=== PATIENT | male | born 1970 | race Caucasian/White ===

== ENCOUNTER → 2017-08-29 | Outpatient (CLI) | payer BC ==
[~2017-08-29] MED LIST: ASPI-232 PO; ESCI10TA17 PO; ESOM20CA PO; LISI-725 PO; revlimid PO
--- NOTE | 2017-08-29 17:47 | DIAGNOSTIC IMAGING REPORT ---
SKELETAL SURVEY COMPLETE CLINICAL HISTORY: 47 years-old Male presenting with MULTIPLE MYELOMA, SEND TO [facility]. TECHNIQUE: Frontal and lateral views of the skull, frontal and lateral views of the cervical spine, frontal and lateral views of the thoracic spine, frontal and lateral views of the lumbar spine, frontal view of the bilateral humeri, frontal view the pelvis, frontal views of the hips/femurs, and AP view of the chest were obtained as part of a skeletal survey. COMPARISON: 08/24/2016. FINDINGS: Frontal and lateral views of the skull do not demonstrate new lytic foci. Paranasal sinuses grossly clear. Previously noted lytic lesion in the right humeral diaphysis is again apparent. No abnormality of the left proximal humerus. Frontal and lateral views of the cervical spine demonstrate normal cervical lordosis and no destructive osseous lesion. Frontal and lateral views of the thoracolumbar spine similarly demonstrate normal thoracic kyphosis and lumbar lordosis. Vertebral bodies preserved. Frontal view of the pelvis again demonstrates a lytic focus in the left ischium along the inferior left pubic ramus. This is unchanged from prior exam. Bilateral frontal views of the femurs do not demonstrate any destructive osseous lesion. AP view of the chest demonstrates normal cardiac mediastinal silhouette. Lungs and pleural spaces clear. Previously noted lytic lesion in the left eighth rib is not apparent. No new destructive osseous lesion. IMPRESSION: Stable examination. No new lytic lesion is radiographically apparent. Notably, noncontrast MR is a more sensitive modality to detect osseous involvement. Electronically signed by: Deven Zurita M.D. 08/29/2017 5:46 PM Dictated Date/Time: 08/29/2017 5:39 PM
== END | disposition home or self-care (01) ==
LOC: C.RAD 15:06
PROVIDERS: ATTEND Nurse Practitioner Family
DX: C90.00 Multiple myeloma not having achieved remission (principal)

== ENCOUNTER → 2017-08-29 | Outpatient (CLI) | payer BC | END | disposition home or self-care (01) | LOC: C.CPL 15:10 | PROVIDERS: ATTEND Surgery | DX: Z01.810 Encounter for preprocedural cardiovascular examination (principal); Z01.818 Encounter for other preprocedural examination; K62.5 Hemorrhage of anus and rectum ==

== ENCOUNTER 2017-09-13 06:57 | Inpatient (IN) | payer BC ==
[2017-09-13] VITALS (8 sets, daily range): BP systolic 104–135; BP diastolic 50–87; PULSE 58–77; TEMP 36.3–37.2; O2SAT 96–97; BMI 31.7
[~2017-09-13] VITALS: Ht 175.3 cm; Wt 98.9 kg
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
[2017-09-13] MEDS ORDERED: LISI40TA3 PO (08:14)
[2017-09-13] MEDS ORDERED: PANT40TA2 PO (08:14)
[2017-09-13] MEDS ORDERED: DXM/4 PO (08:14)
[2017-09-13] MEDS ORDERED: POMA4CAP PO (08:14)
[2017-09-13 08:39] LABS: HEMATOCRIT 41.9 % (42-52); MEAN CELL VOLUME 99.5 fL (80-100); MEAN CORPUSCULAR HEMOGLOBIN 35.6 pg (25-34); MEAN CORPUSCULAR HGB CONC 35.8 g/dl (32-36); MEAN PLATELET VOLUME 9.9 fL (7.4-10.4); NUCLEATED RED BLOOD CELL ABS 0.03 K/uL (0-0); PLATELET COUNT 140 K/uL (130-400); RED CELL DISTRIBUTION WIDTH CV 14.7 % (11.5-14.5); WHITE BLOOD COUNT 5.12 K/uL (4.8-10.8)
[2017-09-13 08:47] LABS: ALBUMIN 3.3 gm/dl (3.4-5.0); ALT/SGPT 57 U/L (12-78); BLOOD UREA NITROGEN 21 mg/dl (7-18); CALCIUM 8.6 mg/dl (8.5-10.1); CARBON DIOXIDE 23 mmol/L (21-32); CREATININE 1.46 mg/dl (0.60-1.40); GLUCOSE 287 mg/dl (70-99); POTASSIUM 4.1 mmol/L (3.5-5.1); SODIUM 138 mmol/L (136-145)
--- NOTE | 2017-09-13 08:56 | DIAGNOSTIC IMAGING REPORT ---
CHEST ONE VIEW PORTABLE CLINICAL HISTORY: Altered mental status. Weakness. Multiple myeloma. COMPARISON STUDY: Chest radiograph August 24, 2016. FINDINGS: Lung volumes are normal. There is no pneumothorax. There may be a trace left pleural effusion. No evidence of pulmonary edema. Cardiomediastinal silhouette is stable. Multiple rib lesions are better depicted on prior chest CT. IMPRESSION: 1. Possible trace left pleural effusion. 2. Otherwise, unchanged appearance of the chest. Electronically signed by: Jamal River M.D. 09/13/2017 8:55 AM Dictated Date/Time: 09/13/2017 8:50 AM
[2017-09-13 09:01] LABS: ALKALINE PHOSPHATASE 75 U/L (45-117); AST/SGOT 20 U/L (15-37); CKMB 2.6 ng/ml (0.5-3.6); TOTAL PROTEIN 6.3 gm/dl (6.4-8.2)
[2017-09-13 09:06] LABS: BASO % 0.6 %; BASO ABS # 0.03 K/uL (0-0.2); EOS % 5.3 %; EOS ABS # 0.27 K/uL (0-0.5); IG# 0.17 K/uL (0.00-0.02); LYMPH % 12.1 %; LYMPH ABS # 0.62 K/uL (1.2-3.4); MONO % 14.6 %; MONO ABS # 0.75 K/uL (0.11-0.59); NEUT % 64.1 %; NEUT ABS # 3.28 K/uL (1.4-6.5)
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
[2017-09-13] MEDS ORDERED: ONDANSETRON INJ 2 MG/ML 2 ML VIAL IV PRN (10:30)
[2017-09-13] MEDS ORDERED: MAGNESIUM HYDROXIDE SUSP 30 ML UDC PO PRN (10:30)
[2017-09-13] MEDS ORDERED: PANTOprazole SOD 40 MG TAB PO PRN (10:30)
[2017-09-13] MEDS ORDERED: ALUMINUM/MAGNESIUM/SIMETH (MAALOX MAX) 30 ML UDC PO PRN (10:30)
[2017-09-13] MEDS ORDERED: ACETAMINOPHEN 325 MG TAB PO PRN (10:30)
[2017-09-13] MEDS ORDERED: POLYETHYLENE (MIRALAX) 17 GM PACK PO PRN (10:30)
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
[2017-09-13] MEDS ORDERED: IV FLUIDS COMPLETED PRN (11:15)
[2017-09-13 11:41] LABS: HEMOGLOBIN A1C 6.7 % (4.5-5.6)
--- NOTE | 2017-09-13 11:45 | NUR ---
Observational Note: Patient alert and oriented X 4, Denies Chest Pain/Discomfort/Syncope thus far, Vss. See souvenir assembler Assessment By BOBBY Johnson ADT for full assessment. monitoring and evaluation advisor applied on, Normal Sinus Rhythm, Heart rate Mid 60's thus far. Will continue to monitor and update MD as needed. Call garcia within reach.
--- NOTE | 2017-09-13 11:47 | DIAGNOSTIC IMAGING REPORT ---
ULTRASOUND OF THE CAROTID ARTERIES CLINICAL HISTORY: syncope COMPARISON STUDY: None. TECHNIQUE: Real-time, grayscale, and color Doppler sonography of the carotid arteries was performed. Imaging reviewed in the transverse and longitudinal planes. NASCET criteria was utilized for stenosis calcification. FINDINGS: There is no significant atherosclerotic plaque present . The peak systolic velocity within the right internal carotid artery is 91 cm/sec. The systolic velocity ratio of right internal to common carotid artery is 0.6. The peak systolic velocity within the left internal carotid artery is 85 cm/sec. The systolic velocity ratio left internal to common carotid artery is 0.6. Antegrade flow is seen in the vertebral arteries. The external carotid arteries are patent. Blood pressure in the right arm measured 147 mm/Hg. Blood pressure in the left arm measured 160 mm/Hg. IMPRESSION: No evidence of hemodynamically significant carotid stenosis. Electronically signed by: Tomi Parikh M.D. 09/13/2017 11:46 AM Dictated Date/Time: 09/13/2017 11:43 AM
[2017-09-13 12:57] LABS: INR 0.9 (0.9-1.1); PTT PATIENT 22.3 SECONDS (21.0-31.0)
--- NOTE | 2017-09-13 14:00 | NUR ---
Observational Note: Patient transferred to [facility] w/ transportation staff member. Denies Chest pain/discomfort/vertigo thus far. telemetry monitor taken off. Will continue to monitor and update Md as needed.
--- NOTE | 2017-09-13 14:40 | NUR ---
Observational Note: Patient returned from [facility] w/ transportation. Denies Chest pain/discomfort thus far. junior assistant manager applied on, NSR, Heart rate Upper 60's noted. Call garcia and within reach. Will continue to monitor and update MD as needed.
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
[2017-09-13] MEDS: ENOXAPARIN 40 MG/0.4 ML SYR SC SCH (15:58)
--- NOTE | 2017-09-13 16:00 | NUR ---
A/OBS: A+O X 4. VSS. Family at bedside. SR on monitor, denies chest pain or SOB. SL in R AC, WNL. Lung sounds clear on RA, CPAP HS. Supervision OOB. Will continue to monitor.
--- NOTE | 2017-09-13 17:11 | ECHOCARDIOGRAM REPORT ---
*NOTICE TO RECEIVING [employer] This information is strictly Confidential and protected under [place] law. [place] law prohibits you from making any further disclosure of this information unless further disclosure is expressly permitted by the written consent of the person to whom it pertains or is authorized by law. A general authorization for the release of medical or other information is not sufficient for this purpose. Hospital accepts no responsibility if the information is made available to any other person, INCLUDING THE PATIENT. Interpretation Summary * Name: ANNIE WALTON Study Date: 09/13/2017 02:05 PM BP: 135/74 mmHg * Patient Location: [facility]\S\N275\S\1 HR: 78 * : 1970 (M/d/yyyy) Gender: Male Height: 69 in * Age: 47 yrs Ethnicity: [place] Weight: 214 lb * Ordering Physician: Alcira Lopez * Referring Physician: Self, Referred * Performed By: Lea Funes, [facility] * * Reason For Study: SYNCOPE * BSA: 2.1 m2 * The study was technically adequate. * -- Conclusions -- * There is severe concentric left ventricular hypertrophy. * The left ventricular wall motion is normal. * The left ventricle is hyperdynamic. * Ejection Fraction = >70 %. * Diastolic dysfunction, Grade II (pseudonormalization pattern). * There are no prior studies at [facility] for comparison. Procedure Details * A complete two-dimensional transthoracic echocardiogram was performed (2D, M-mode, Doppler and color flow Doppler). Left Ventricle * The left ventricle is normal in size. * There is severe concentric left ventricular hypertrophy. * The left ventricle is hyperdynamic. * Ejection Fraction = >70 %. * The left ventricular wall motion is normal. Right Ventricle * The right ventricle is normal size. * The right ventricular systolic function is normal as assessed by tricuspid annular plane systolic excursion (TAPSE) (normal >1.5 cm). Atria * The left atrial size is normal. * Right atrial size is normal. * There is no evidence of atrial septal defect, but resolution does not allow assessment for a patent foramen ovale. Mitral Valve * The mitral valve is normal. * There is no mitral valve stenosis. * Significant mitral regurgitation is absent. Tricuspid Valve * The tricuspid valve is normal. * There is no tricuspid stenosis. * Significant tricuspid regurgitation is absent. Aortic Valve * The aortic valve is trileaflet. * Aortic stenosis is absent. * There is no significant aortic regurgitation. Pulmonic Valve * The pulmonary valve is not well seen, but the Doppler examination is normal without significant regurgitation or stenosis. Great Vessels * The aortic root and proximal ascending aorta are normal sized. Pericardium/Pleural * There is no pericardial effusion. Great Vessels * Normal inferior vena cava diameter and respiratory variation suggests normal central venous pressure. * Normal inferior vena cava size and collapsability with sniff indicates a normal right atrial pressure of 3 mmHg Left Ventricular Diastolic Function * Diastolic dysfunction, Grade II (pseudonormalization pattern). MMode 2D Measurements and Calculations IVSd 1.9 cm IVSs 2.5 cm LVIDd 4.1 cm LVIDs 2.4 cm LVPWd 1.7 cm LVPWs 2.2 cm IVS/LVPW 1.1 FS 41.7 % EDV(Teich) 75.5 ml ESV(Teich) 20.3 ml EF(Teich) 73.1 % EDV(cubed) 70.4 ml ESV(cubed) 13.9 ml EF(cubed) 80.2 % % IVS thick 35.0 % % LVPW thick 30.9 % LV mass(C)d 313.8 grams LV mass(C)dI 147.6 grams/m\S\2 LV mass(C)s 285.2 grams LV mass(C)sI 134.1 grams/m\S\2 SV(Teich) 55.2 ml SI(Teich) 26.0 ml/m\S\2 SV(cubed) 56.5 ml SI(cubed) 26.6 ml/m\S\2 Ao root diam 2.7 cm Ao root area 5.8 cm\S\2 ACS 1.8 cm LA dimension 4.8 cm LA/Ao 1.8 LVOT diam 2.0 cm LVOT area 3.0 cm\S\2 Doppler Measurements and Calculations MV E max giacomo 117.6 cm/sec MV A max giacomo 69.6 cm/sec MV E/A 1.7 MV P1/2t max giacomo 130.3 cm/sec MV P1/2t 33.0 msec MVA(P1/2t) 6.7 cm\S\2 MV dec slope 1157.0 cm/sec\S\2 MV dec time 0.09 sec Ao V2 max 205.2 cm/sec Ao max PG 16.8 mmHg Ao max PG (full) 9.6 mmHg ANABELLA(V,A) 2.0 cm\S\2 ANABELLA(V,D) 2.0 cm\S\2 LV V1 max PG 7.2 mmHg LV V1 max 134.3 cm/sec MR max giacomo 429.9 cm/sec MR max PG 73.9 mmHg PA V2 max 111.7 cm/sec PA max PG 5.0 mmHg
--- NOTE | 2017-09-13 17:17 | NUR ---
A: Pt has been having episodes of ST and A-fib. Pt's recent troponin level increased from prior. Pt asymptomatic. made aware, no new orders at this time. Addendum: 09/13/17 at 1721 by Shirley Benitez RN A: Order for PO metoprolol added to EMAR.
[2017-09-13] MEDS ORDERED: METOPROLOL TARTRATE 25 MG TAB PO ONE (17:45)
--- NOTE | 2017-09-13 20:00 | NUR ---
A/OBS: A+O X 4. VSS. Has been staying NSR on monitor w/stable HR, denies chest pain or SOB. SL in R AC, WNL. Pt has own CPAP machine and will apply when ready. Supervision OOB. NPO after midnight r/t fasting labs in AM. Cardiology consulted. Per pt request, PRN advil for headache with evening medications. Will continue to monitor.
[2017-09-13] MEDS ORDERED: IBUPROFEN 200 MG TAB PO PRN (21:15)
[2017-09-13] MEDS: METOPROLOL TARTRATE 25 MG TAB PO SCH (21:26)
[2017-09-13 23:22] LABS: CKMB 2.4 ng/ml (0.5-3.6)
--- NOTE | 2017-09-14 | NUR ---
A: Pt is A&OX4. Supervision to IND when out of bed. Denies dizziness and pain. VSS. SR on the monitor. Lung sounds are clear. Pt has own C-pap on. SL noted. Will continue to monitor.
[2017-09-14 04:00] VITALS: BP_SYST 105; BP_SYST 124; BP_SYST 95; BP_DIAS 56; BP_DIAS 61; BP_DIAS 74; PULSE 62; PULSE 64; PULSE 66; TEMP 36.7; O2SAT 97
--- NOTE | 2017-09-14 04:00 | NUR ---
A: Assessment unchanged from previous note. VSS. SR on the monitor. NPO since for test in the AM. Will continue to monitor. Addendum: 09/14/17 at 0522 by Rufina Redman RN Pt has been SR to SB.
[2017-09-14 07:05] LABS: HEMATOCRIT 40.8 % (42-52); HEMOGLOBIN 14.4 g/dL (14.0-18.0); MEAN CORPUSCULAR HEMOGLOBIN 35.3 pg (25-34); MEAN CORPUSCULAR HGB CONC 35.3 g/dl (32-36); MEAN PLATELET VOLUME 9.3 fL (7.4-10.4); NUCLEATED RED BLOOD CELL ABS 0.02 K/uL (0-0); PLATELET COUNT 119 K/uL (130-400); RED CELL DISTRIBUTION WIDTH CV 14.8 % (11.5-14.5); RED CELL DISTRIBUTION WIDTH SD 52.6 fL (36.4-46.3); WHITE BLOOD COUNT 4.83 K/uL (4.8-10.8)
[2017-09-14 07:36] LABS: CALCIUM 8.6 mg/dl (8.5-10.1); CREATININE 1.23 mg/dl (0.60-1.40); POTASSIUM 4.3 mmol/L (3.5-5.1)
[2017-09-14 07:42] VITALS: BP 120/64; PULSE 58; TEMP 36.6; O2SAT 96
--- NOTE | 2017-09-14 08:00 | NUR ---
A- Alert and oriented, OOB independently. SB on monitor. Denies pain, shortness of breath, dizziness. See PCS for full assessment
[2017-09-14] MEDS: ESCITALOPRAM OXALATE 10 MG TAB PO SCH (08:35)
[2017-09-14] MEDS: METOPROLOL TARTRATE 25 MG TAB PO SCH ×2 (08:36→20:34)
[2017-09-14] MEDS: ASPIRIN 81 MG ECTAB PO SCH (08:36)
[2017-09-14] MEDS: LISINOPRIL 40 MG TAB PO SCH (08:36)
--- NOTE | 2017-09-14 10:06 | Cardiology Consultation ---
Cardiology Consultation Date of Consultation: Sep 14, 2017. Requesting Physician: Dr. Chambers Attending Physician: Dr. oJhnson Reason for Consultation: Severe LVH, new onset atrial fibrillation Pt evaluation today including: conversation w/ patient, conversation w/ family , physical exam, chart review, lab review, review of studies, review of inpatient medication list, conversation w/ attending History of Present Illness Mr. Ochoa is a 47-year-old male with a past medical history significant for multiple myeloma (diagnosed in 2013), hypertension, GERD, DEBBY (on CPAP), chronic kidney disease, and anxiety who presented to the ED yesterday following a syncopal event. The patient reports that he was in his car pulling into the parking lot at work yesterday morning when he took a sip of his tea. He choked while drinking the tea and coughed forcefully twice before suddenly losing consciousness. He denies any prodromal symptoms leading up to the loss of consciousness including palpitations, lightheadedness, dizziness, nausea, diaphoresis, etc. When he woke up, he found that his car had scraped the side of a sign in the parking lot before stopping. He denies any history of syncope before or since that occasion. He reports that he has been sick with a "chest cold" over the last two months. He reports coughing, wheezing, and increased shortness of breath on exertion with the cold. He also notes tightness of his chest in association with the shortness of breath. He had chills last week as well. He reports that he was seen at an urgent care center last week and was diagnosed with pneumonia at that time. He has been treated with a Z vicky with improvement in his symptoms. He reports that about 1-2 months ago, he was switched to Pomalyst and dexamethasone for his multiple myeloma. He reports that since that time, he has noted brief episodes of tachy-palpitations lasting no more than 10 seconds in duration. He attributed the palpitations to the steroids. He has not experienced any palpitations since his hospital admission. He denies abnormal bleeding such as melena, hematochezia, or hematuria. He denies cerebrovascular symptoms. He denies orthopnea or edema. He denies GI or symptoms. Review of Systems: As noted in HPI. All other 10 point ROS reviewed and otherwise negative. Past Medical/Surgical History Multiple myeloma Gastroesophageal reflux disease Obstructive sleep apnea Hypertension Past surgical history Vasectomy Family History Patient reports no known family medical history. The patient is adopted, therefore, he does not know his family history. Social History Smoking Status: Never Smoker History of Alcohol Use: No He is . He has one children with his current and has 2 children from a previous marriage. He works at [employer]. He denies smoking, alcohol, or illicit drug use. Review of Systems Per HPI. Patient has been experiencing symptoms of upper respiratory infection and coughing for a few weeks. He also does note some dyspnea while at ascending stairs associated with some chest pressure. All Other Systems: Reviewed and Negative Allergies Coded Allergies: No Known Allergies (Unverified , 09/13/17) Medications Current Inpatient Medications Medications (Trade) Dose Ordered Sig/Garcia Route Start Time Stop Time Status Last Admin Dose Admin Enoxaparin Sodium (Lovenox Inj) 40 mg DAILY@1600 SC 09/13/17 16:00 10/13/17 15:59 09/13/17 15:58 40 MG Acetaminophen (Tylenol Tab) 650 mg Q4H PRN PO 09/13/17 10:30 10/13/17 10:29 Al Hydrox/Mg Hydrox/Simethicone (Maalox Max Susp) 15 ml Q4H PRN PO 09/13/17 10:30 10/13/17 10:29 Magnesium Hydroxide (Milk Of Magnesia Susp) 30 ml Q12H PRN PO 09/13/17 10:30 10/13/17 10:29 Ondansetron HCl (Zofran Inj) 4 mg Q6H PRN IV 09/13/17 10:30 10/13/17 10:29 Polyethylene (Miralax Powder Packet) 17 gm DAILY PRN PO 09/13/17 10:30 10/13/17 10:29 Aspirin (Ecotrin Tab) 81 mg DAILY PO 09/14/17 09:00 10/14/17 08:59 09/14/17 08:36 81 MG Escitalopram Oxalate (Lexapro Tab) 10 mg DAILY PO 09/14/17 09:00 10/14/17 08:59 09/14/17 08:35 10 MG Lisinopril (Zestril Tab) 40 mg DAILY PO 09/14/17 09:00 10/14/17 08:59 1/3/18 08:36 40 MG Pantoprazole Sodium (Protonix Tab) 40 mg DAILY PRN PO 09/13/17 10:30 10/13/17 10:29 Miscellaneous Information (Order Awaiting Action) 1 ea QS N/A 09/13/17 16:00 10/13/17 15:59 Miscellaneous (Iv Fluids Completed) 1 ea PRN PRN N/A 09/13/17 11:15 09/13/18 11:14 Metoprolol Tartrate (Lopressor Tab) 12.5 mg BID PO 09/13/17 21:00 10/13/17 20:59 09/13/17 21:26 12.5 MG Prednisone (PredniSONE TAB) 10 mg QPM PO 09/13/17 21:00 10/13/17 20:59 09/13/17 21:26 10 MG Ibuprofen (Advil Tab) 400 mg QID PRN PO 09/13/17 21:15 10/13/17 21:14 09/13/17 21:26 400 MG Physical Exam Vital Signs Past 12 Hours Date Time Temp Pulse Resp B/P (MAP) Pulse Ox O2 Delivery O2 Flow Rate FiO2 09/14/17 08:00 Room Air 09/14/17 07:42 36.6 58 18 120/64 (82) 96 Room Air 09/14/17 04:00 64 105/61 (76) 09/14/17 04:00 36.7 62 18 95/56 (69) 97 Room Air 09/14/17 04:00 66 18 124/74 (91) 09/14/17 04:00 Room Air 09/14/17 00:00 CPAP 09/13/17 23:58 36.3 58 18 104/55 (71) 97 CPAP Constitutional: Alert, oriented, in no acute distress HEENT: Head is atraumatic and normocephalic. EOMs intact. Sclera anicteric. Face is symmetric. No perioral cyanosis. Mucous membranes moist. Neck: Supple, no JVD, no carotid bruits Pulmonary: Normal respiratory effort, clear to auscultation bilaterally Cardiac: Regular rate and rhythm, normal S1 and S2, no gallops, no rubs, no murmurs Extremities: No clubbing, cyanosis, or edema. Pulses 2+ and symmetric Abdomen: Normal bowel sounds, soft, non-tender, no abdominal mass palpated Skin: Normal skin color, turgor, and pigmentation, no rash, no skin lesions Neurological: Oriented to person, place, and time Data Laboratory Results: Last 24 Hours Test 09/13/17 12:27 09/13/17 15:18 09/13/17 22:43 09/14/17 06:29 Prothrombin Time 9.7 SECONDS Prothromb Time International Ratio 0.9 Activated Partial Thromboplast Time 22.3 SECONDS Partial Thromboplastin Ratio 0.9 Total Creatine Kinase 27 U/L 32 U/L Creatine Kinase MB 2.0 ng/ml 2.4 ng/ml Creatine Kinase MB Ratio 7.4 7.5 Troponin I 0.127 ng/ml 0.188 ng/ml White Blood Count 4.83 K/uL Red Blood Count 4.08 M/uL Hemoglobin 14.4 g/dL Hematocrit 40.8 % Mean Corpuscular Volume 100.0 fL Mean Corpuscular Hemoglobin 35.3 pg Mean Corpuscular Hemoglobin Concent 35.3 g/dl RDW Standard Deviation 52.6 fL RDW Coefficient of Variation 14.8 % Platelet Count 119 K/uL Mean Platelet Volume 9.3 fL Nucleated RBC Absolute Count (auto) 0.02 K/uL Nucleated Red Blood Cells % 0.5 % Sodium Level 138 mmol/L Potassium Level 4.3 mmol/L Chloride Level 106 mmol/L Carbon Dioxide Level 27 mmol/L Anion Gap 5.0 mmol/L Blood Urea Nitrogen 20 mg/dl Creatinine 1.23 mg/dl Est Creatinine Clear Calc Drug Dose 88.3 ml/min Estimated GFR () 80.5 Estimated GFR (Non- 69.5 BUN/Creatinine Ratio 16.3 Random Glucose 146 mg/dl Calcium Level 8.6 mg/dl Triglycerides Level 199 mg/dl Cholesterol Level 160 mg/dl HDL Cholesterol 49 mg/dl LDL Cholesterol, Calculated 71 mg/dl VLDL Cholesterol, Calculated 40 mg/dl Cholesterol/HDL Ratio 3.3 CXR: 1. Possible trace left pleural effusion. 2. Otherwise, unchanged appearance of the chest. Carotid duplex: No evidence of hemodynamically significant carotid stenosis. EKG: Sinus bradycardia at 52 bpm. T wave inversion of lateral and inferior leads. Echo: 1. There is severe concentric left ventricular hypertrophy. 2. The left ventricular wall motion is normal. 3. The left ventricle is hyperdynamic. 4. Ejection Fraction = >70 %. 5. Diastolic dysfunction, Grade II (pseudonormalization pattern). Telemetry reviewed: Sinus rhythm with rates in the 50-60s typically, but he did drop down into the 30s overnight. He had an episode of atrial fibrillation/ flutter starting at 16:44 yesterday that spontaneously converted to sinus at 17: 27. Assessment & Plan The patient was discussed with Dr. Johnson who will also be in to see the patient today. Please refer to his outlined plan below. 1. Syncope: I believe the patient's syncope is result of a benign process. He was coughing and experienced a very brief loss of consciousness that lasted only a few seconds. He had no prodrome leading up to the event. There is no sense of palpitation. He did not have symptoms of chest discomfort or even dizziness immediately prior. Afterwards he felt fine was transported to the hospital by his . He does report similar episodes while coughing vigorously during his recent upper respiratory illness. He has not experienced syncope in the past. 2. Elevated cardiac troponin: The trajectory of his troponins is flat. He did not describe symptoms recently consistent with angina or coronary insufficiency. Do not believe he suffered a recent acute coronary syndrome. It is very possible that he has some mildly elevated troponins in a chronic fashion due to mild renal dysfunction and cardiomyopathy. He also could have had some mild watershed injury due to rapid atrial fibrillation in the setting of his severe concentric hypertrophy. His EKG is not normal. He has T-wave inversions diffusely which may be related to his cardiomyopathy. However, I think at this point would be reasonable to perform a perfusion study. He does have some exertional symptoms did describe dyspnea with chest pressure at ascending stairs on occasion. He has been maintained on a daily aspirin. 3. Left ventricular hypertrophy: Patient has significant left ventricular hypertrophy. This may be related to longstanding hypertension. He also has multiple myeloma could have increased wall thickness as a result. He has preserved LV systolic function with stage II diastolic dysfunction. Although he has LVH, this is not H CM. I do not believe his syncope was related to his cardiomyopathy. 4. Atrial fibrillation: Patient did have an episode of atrial fibrillation over the course of the evening that was extended in duration. He did not have symptoms. Unclear whether he has atrial fibrillation at other times but most likely he does. His main risk factors likely his obstructive sleep apnea, and longstanding hypertension. His cardiomyopathy and diastolic dysfunction may also play a role. Unfortunately, he did have higher ventricular rates during this episode. He would benefit from some form of rate control preferably with beta blockade. However, his resting heart rate is quite low. This may limit our ability to adequately control his ventricular response during atrial fibrillation. He may in fact need a pacemaker for adequate control if he has more frequent and extended episodes of atrial fibrillation. At this point seems reasonable to monitor him again overnight. We can make some decisions regarding treatment after he has been administered some metoprolol. We could even perform outpatient monitoring to better gauge the frequency of his atrial fibrillation in the associated heart rates. His risk for thromboembolic disease is also unknown. Standard risk factor assessment would place him in a chads Vasc category of 1. This is relatively low risk and generally does not require systemic anticoagulation. However, he does take a derivative of thalidomide which seems to have some increased risk of thromboembolic events. In that setting and may be more appropriate to consider systemic anticoagulation.
[2017-09-14 10:47] VITALS: Ht 175.3 cm; Wt 98.9 kg
--- NOTE | 2017-09-14 10:54 | NUR ---
Pt screened for oncology hx. Please refer to linked assessment Addendum: 09/14/17 at [address] Amended: Links added.
--- NOTE | 2017-09-14 11:00 | NUR ---
A- Dr Chambers aware that patient is currently in afib rate 100-140's
[2017-09-14 11:26] VITALS: BP_SYST 114; BP_SYST 115; BP_SYST 118; BP_DIAS 72; BP_DIAS 74; BP_DIAS 76; PULSE 114; TEMP 36.6; O2SAT 95
--- NOTE | 2017-09-14 11:33 | NUR ---
A- Dr Chambers aware that patient has converted back to SB/SR
--- NOTE | 2017-09-14 13:33 | Clinical Documentation Query ---
CLINICAL DOCUMENTATION QUERY Dr. ALEX, In your clinical opinion is this patient being managed for: ( x ) Tussive syncope ( ) Not Agree ( ) Other explanation of clinical findings (Please Explain) ( ) Unable to determine (Please Define) ( ) Need to Discuss The medical record reflects the following clinical findings, treatment, and risk factors. Clinical Indicators:47 yo male presenting with a syncopal episode following an episode of choking on tea and coughed. Per cardiology consult, pt does report similar episodes while coughing vigorously during his recent upper respiratory illness. Treatment:cardiology consult, tele monitoring, rule out for cardiac cause, ECHO, serial trops Risk Factors: choking episode, obesity Tussive syncope, or cough syncope, is most often found in middle-aged, moderately obese men, who smoke or have stopped smoking. ... Tussive syncope is considered as one of the situational syncopes, which take place after certain processes: e.g. defecation, micturition, swallowing and coughing. Please clarify and document your clinical opinion in the progress notes and discharge summary. Terms such as "probable", "suspected", "likely", "questionable", "possible", or "still to be ruled out" are acceptable. IF IN AGREEMENT, YOU MUST DOCUMENT ABOVE DIAGNOSTIC STATEMENT IN DAILY PROGRESS NOTES AND DISCHARGE SUMMARY. This document is not part of the patient's record. Thank You, Millie Correia RN [phone]
--- NOTE | 2017-09-14 14:35 | Hospitalist Progress Note ---
Hospitalist Progress Note Date of Service Sep 14, 2017. (Alcira Lopez ., ZENA-C) Subjective Pt evaluation today including: conversation w/ patient, physical exam, chart review, lab review, review of inpatient medication list Pain: None PO Intake: Tolerating PO diet Voiding: no voiding problems Patient reports feeling well. He does note some intermittent palpitations and reports that he could "feel it" when he [facility] with [facility] this morning. He otherwise denies any complaints or associated symptoms. The patient denies fevers, chills, sweats, chest pain, claudication, cough, wheezing, shortness of breath, nausea, vomiting, abdominal pain, dysuria, hematuria, urinary retention , paralysis, weakness, numbness and tingling. Additional Comments: See HPI for pertinent positives and negatives. All other systems reviewed and negative. (Alcira Lopez ., PA-C) Objective Vital Signs Date Time Temp Pulse Resp B/P (MAP) Pulse Ox O2 Delivery O2 Flow Rate FiO2 09/14/17 11:47 Room Air 09/14/17 11:26 36.6 114 18 118/74 (89) 95 Room Air 115/72 (86) 114/76 (89) 09/14/17 08:00 Room Air 09/14/17 07:42 36.6 58 18 120/64 (82) 96 Room Air 09/14/17 04:00 64 105/61 (76) 09/14/17 04:00 36.7 62 18 95/56 (69) 97 Room Air 09/14/17 04:00 66 18 124/74 (91) 09/14/17 04:00 Room Air 09/14/17 00:00 CPAP 09/13/17 23:58 36.3 58 18 104/55 (71) 97 CPAP 09/13/17 21:06 36.8 66 16 134/67 (89) 96 Room Air 09/13/17 20:00 96 Room Air 09/13/17 17:03 133/87 (102) 09/13/17 16:00 96 Room Air 09/13/17 15:00 36.9 68 18 135/74 (94) 96 Room Air (Alcira Lopez ., ZENA-C) Physical Exam Notes: General appearance: +Obese. Well-developed, well-nourished, no apparent distress Head: Normocephalic, atraumatic Eyes: Normal inspection, PERRL, EOMI, no nystagmus ENT: Normal ENT inspection, hearing grossly normal, pharynx normal Neck: Supple, no JVD, trachea midline Respiratory/Chest: Lungs clear to auscultation, normal breath sounds, no respiratory distress Cardiovascular: Regular rate & rhythm, no gallop, no murmur Abdomen/GI: Normal bowel sounds, non-tender, soft Extremities/Musculoskeletal: Normal inspection, no calf tenderness, no pedal edema Neurological/Psych: Alert, normal mood/affect, oriented x 3 Skin: Normal color, warm/dry, no rash (Alcira Lopez ., PA-C) Laboratory Results Last 24 Hours Test 09/13/17 15:18 09/13/17 22:43 09/14/17 06:29 09/14/17 10:58 Total Creatine Kinase 27 U/L 32 U/L Creatine Kinase MB 2.0 ng/ml 2.4 ng/ml Creatine Kinase MB Ratio 7.4 7.5 Troponin I 0.127 ng/ml 0.188 ng/ml 0.082 ng/ml White Blood Count 4.83 K/uL Red Blood Count 4.08 M/uL Hemoglobin 14.4 g/dL Hematocrit 40.8 % Mean Corpuscular Volume 100.0 fL Mean Corpuscular Hemoglobin 35.3 pg Mean Corpuscular Hemoglobin Concent 35.3 g/dl RDW Standard Deviation 52.6 fL RDW Coefficient of Variation 14.8 % Platelet Count 119 K/uL Mean Platelet Volume 9.3 fL Nucleated RBC Absolute Count (auto) 0.02 K/uL Nucleated Red Blood Cells % 0.5 % Sodium Level 138 mmol/L Potassium Level 4.3 mmol/L Chloride Level 106 mmol/L Carbon Dioxide Level 27 mmol/L Anion Gap 5.0 mmol/L Blood Urea Nitrogen 20 mg/dl Creatinine 1.23 mg/dl Est Creatinine Clear Calc Drug Dose 88.3 ml/min Estimated GFR () 80.5 Estimated GFR (Non- 69.5 BUN/Creatinine Ratio 16.3 Random Glucose 146 mg/dl Calcium Level 8.6 mg/dl Triglycerides Level 199 mg/dl Cholesterol Level 160 mg/dl HDL Cholesterol 49 mg/dl LDL Cholesterol, Calculated 71 mg/dl VLDL Cholesterol, Calculated 40 mg/dl Cholesterol/HDL Ratio 3.3 (Alcira Lopez ., LALA) Diagnostic Results Echocardiogram: Interpretation Summary * Name: ANNIE WALTON Study Date: 09/13/2017 02:05 PM BP: 135/74 mmHg * Patient Location: [facility]\\\\[id number] HR: 78 * : 1970 (M/d/yyyy) Gender: Male Height: 69 in * Age: 47 yrs Ethnicity: [place] Weight: 214 lb * Ordering Physician: Alcira Lopez * Referring Physician: Self, Referred * Performed By: Lea Funes, [facility] * * Reason For Study: SYNCOPE * BSA: 2.1 m2 * The study was technically adequate. * -- Conclusions -- * There is severe concentric left ventricular hypertrophy. * The left ventricular wall motion is normal. * The left ventricle is hyperdynamic. * Ejection Fraction = >70 %. * Diastolic dysfunction, Grade II (pseudonormalization pattern). * There are no prior studies at [facility] for comparison. Procedure Details * A complete two-dimensional transthoracic echocardiogram was performed (2D, M- mode, Doppler and color flow Doppler). Left Ventricle * The left ventricle is normal in size. * There is severe concentric left ventricular hypertrophy. * The left ventricle is hyperdynamic. * Ejection Fraction = >70 %. * The left ventricular wall motion is normal. Right Ventricle * The right ventricle is normal size. * The right ventricular systolic function is normal as assessed by tricuspid annular plane systolic excursion (TAPSE) (normal >1.5 cm). Atria * The left atrial size is normal. * Right atrial size is normal. * There is no evidence of atrial septal defect, but resolution does not allow assessment for a patent foramen ovale. Mitral Valve * The mitral valve is normal. * There is no mitral valve stenosis. * Significant mitral regurgitation is absent. Tricuspid Valve * The tricuspid valve is normal. * There is no tricuspid stenosis. * Significant tricuspid regurgitation is absent. Aortic Valve * The aortic valve is trileaflet. * Aortic stenosis is absent. * There is no significant aortic regurgitation. Pulmonic Valve * The pulmonary valve is not well seen, but the Doppler examination is normal without significant regurgitation or stenosis. Great Vessels * The aortic root and proximal ascending aorta are normal sized. Pericardium/Pleural * There is no pericardial effusion. Great Vessels * Normal inferior vena cava diameter and respiratory variation suggests normal central venous pressure. * Normal inferior vena cava size and collapsability with sniff indicates a normal right atrial pressure of 3 mmHg Left Ventricular Diastolic Function * Diastolic dysfunction, Grade II (pseudonormalization pattern). ULTRASOUND OF THE CAROTID ARTERIES CLINICAL HISTORY: syncope COMPARISON STUDY: None. TECHNIQUE: Real-time, grayscale, and color Doppler sonography of the carotid arteries was performed. Imaging reviewed in the transverse and longitudinal planes. NASCET criteria was utilized for stenosis calcification. FINDINGS: There is no significant atherosclerotic plaque present . The peak systolic velocity within the right internal carotid artery is 91 cm/sec. The systolic velocity ratio of right internal to common carotid artery is 0.6. The peak systolic velocity within the left internal carotid artery is 85 cm/sec. The systolic velocity ratio left internal to common carotid artery is 0.6. Antegrade flow is seen in the vertebral arteries. The external carotid arteries are patent. Blood pressure in the right arm measured 147 mm/Hg. Blood pressure in the left arm measured 160 mm/Hg. IMPRESSION: No evidence of hemodynamically significant carotid stenosis. (Alcira Lopez ., PA-C) Assessment and Plan 47 y/o male with a history of HTN, HLD, multiple myeloma, anxiety, CKD stage III , DEBBY and GERD who presented to the ED on 09/13 with a syncopal episode. Pt afebrile, VSS on arrival. Orthostatics done and negative. CXR shows no acute disease. EKG shows old inferior and lateral TWI, no acute changes. BSG elevated at 287 with no history of diabetes, however pt currently on Prednisone due to recent pneumonia and on chronic Decadron. Troponin mildly elevated at 0.110. Labs otherwise grossly unremarkable. Syncope, elevated troponin--resolving -Admit to telemetry for cardiac/arrhythmia monitoring. Pt in sinus bradycardia overnight with HR 40s-50s. Pt does have intermittent episodes of a-fib w/RVR with HR in 140s. Had a 20 minute run of RVR this morning from 10:51-11:12, then back into SR -Troponin stable, peaked at 0.188 and now trending down -Echo shows severe LVH. LV hyperdynamic, EF over 70%. No wall motion abnormalities. Grade II diastolic dysfunction. No significant valvular pathology. -Carotid ultrasound negative, no hemodynamically significant stenosis. -Orthostatic BP q shift -Non-hypotensive, non-hypoxic, non-tachycardic. D-dimer negative -Lipid panel shows triglycerides at 199, total cholesterol 160, non-HDL 111 Paroxysmal a-fib -Cardiology consulted, appreciate recs: Would benefit from some form of rate control for RVR, preferably with BB, but resting heart rate is low. May need pacemaker for adequate control if a-fib occurs more frequently/longer duration. Elevated troponin unlikely ACS, could have some mild watershed injury due to rapid a-fib in the setting of his severe concentric hypertrophy. T-wave inversions diffusely on EKG, reasonable to do perfusion study. Cardiomyopathy likely secondary to multiple myeloma. -NPO after midnight for nuclear stress test tomorrow -Although chadsvasc score is low, pt has underlying malignancy, and Pomalyst can also increase clot risk. Should likely be on anticoagulation but can start this as outpatient after talking with oncologist -Lopressor 12.5 mg PO BID with hold parameters Recent pneumonia--improving -Finished Z-pack, no leukocytosis or fever -Elevated trop could be related to recent acute illness/demand ischemia -Prednisone 10 mg PO qd x 2 more doses to complete outpt taper DM II--HgbA1c 6.7 on 09/13 -Pt on chronic steroids -Hold off on maintenance medications for now -BSG improved on 09/14 from admission -Insulin sliding scale -Check BSGs q ac and qhs HTN, HLD--stable -Continue ASA, lisinopril 40 mg PO qd Multiple myeloma s/p bone marrow transplant January 2015--stable -Pt follows with Dr. Estrada locally and at [facility] oncology -Continue Pomalyst 4 mg PO qd -Pt takes Decadron 4 mg PO weekly on Saturdays Anxiety--stable -Continue Lexapro 10 mg PO qd CKD stage III--stable -Creatinine at baseline (1.3-1.5) DEBBY -CPAP GERD -Protonix prn DVT prophylaxis -Enoxaparin 40 mg SC q24h -ZANDRA tran and SCDs Code Status -Level I, FULL RESUSCITATION STATUS (Alcira Lopez, PA-C) Supervising Note Dr. Chambers I performed a history and physical examination on the patient. I reviewed above note and agree with it. I discussed plan with APC and patient. During my face to face encounter with the patient, I answered all of the patient's questions. Patient appears to have a tussive syncopal episode. will continue to monitor him while he is here and have him on tele monitor Patient also has a. fib and severe LVH likely from his multiple myeloma. Patient will get nuclear stress test tomorrow. will have patient on low dose beta teto for now. (Irineo Chambers M.D.)
--- NOTE | 2017-09-14 14:42 | NUR ---
ID- Alert and oriented, independent with adls. Tolerating diet, no caffeine today due to Lexuscan ordered for tomorrow am , patient aware. SB/SR/Afib on monitor. Discharge date uncertain at present
[2017-09-14] MEDS ORDERED: GLUCOSE 40% GEL 15 GM TUBE PO PRN (14:45)
[2017-09-14] MEDS ORDERED: GLUCOSE 10 TABS/TUBE PO PRN (14:45)
[2017-09-14] MEDS ORDERED: GLUCAGON FOR INJ 1 MG VIAL SQ PRN (14:45)
[2017-09-14] MEDS ORDERED: DEXTROSE 50% 50 ML SYR IV PRN (14:45)
[2017-09-14 15:21] VITALS: BP_SYST 123; BP_SYST 129; BP_SYST 146; BP_DIAS 74; BP_DIAS 84; BP_DIAS 87; PULSE 68; PULSE 69; PULSE 70; TEMP 37.3; O2SAT 97
[2017-09-14] MEDS: ENOXAPARIN 40 MG/0.4 ML SYR SC SCH (16:19)
[2017-09-14] MEDS: INSULIN ASPART 100 UNITS/ML 3 ML PEN SC SCH ×2 (16:21→20:53)
--- NOTE | 2017-09-14 20:10 | NUR ---
A: Patient alert & oriented x 4. VSS. No c/o pain. O2 sats stable on RA. No c/o SOB or chest pain. Denies dizziness. Monitor on. OOB independently with steady gait to BR. Will continue to monitor.
[2017-09-14 20:26] VITALS: BP 128/67; PULSE 68; TEMP 36.8; O2SAT 95
[2017-09-14 23:52] VITALS: BP 116/72; PULSE 89; TEMP 36.7; O2SAT 97
--- NOTE | 2017-09-15 00:10 | NUR ---
A: Patient sleeping. No complaints at this time. NPO for Elena this AM. Patient educated and aware. Will continue to monitor.
--- NOTE | 2017-09-15 04:10 | NUR ---
A: Patient sleeping. No complaints @ this time. Assessment unchanged. Will continue to monitor.
[2017-09-15 04:44] VITALS: BP 110/67; PULSE 51; TEMP 36.6; O2SAT 98
[2017-09-15 06:14] LABS: HEMATOCRIT 43.2 % (42-52); HEMOGLOBIN 15.1 g/dL (14.0-18.0); MEAN CELL VOLUME 101.2 fL (80-100); MEAN CORPUSCULAR HEMOGLOBIN 35.4 pg (25-34); MEAN PLATELET VOLUME 9.7 fL (7.4-10.4); PLATELET COUNT 128 K/uL (130-400); RED CELL DISTRIBUTION WIDTH SD 53.4 fL (36.4-46.3)
[2017-09-15 06:50] LABS: CALCIUM 8.5 mg/dl (8.5-10.1); CREATININE 1.21 mg/dl (0.60-1.40); POTASSIUM 4.3 mmol/L (3.5-5.1)
--- NOTE | 2017-09-15 07:30 | NUR ---
A- Alert and oriented, oob independently. Npo for Jose Duscan, patient taken via wheelchair to Nuc med at this time
[2017-09-15] MEDS ORDERED: REGADENOSON 0.4 MG/5 ML SYR ONE (07:44)
[2017-09-15 08:01] VITALS: BP_SYST 102; BP_SYST 105; BP_SYST 110; BP_DIAS 58; BP_DIAS 62; BP_DIAS 64; PULSE 53; PULSE 55; PULSE 59; TEMP 36.6; O2SAT 96
[2017-09-15] MEDS: INSULIN ASPART 100 UNITS/ML 3 ML PEN SC SCH ×2 (09:04→14:40)
[2017-09-15] MEDS: ESCITALOPRAM OXALATE 10 MG TAB PO SCH (10:52)
[2017-09-15] MEDS: ASPIRIN 81 MG ECTAB PO SCH (10:52)
[2017-09-15] MEDS: LISINOPRIL 40 MG TAB PO SCH (10:53)
[2017-09-15 10:56] VITALS: PULSE 66
[2017-09-15] MEDS: METOPROLOL TARTRATE 25 MG TAB PO SCH (10:56)
--- NOTE | 2017-09-15 11:12 | Cardiology Follow-Up ---
Subjective Date of Service: Sep 15, 2017. Pt evaluation today including: conversation w/ patient, physical exam, chart review, lab review, review of studies, review of inpatient medication list History of Present Illness This morning the patient claims to be feeling well. He was wear a sense of palpitation yesterday during periods of atrial fibrillation. He recalls a sense of these palpitations periodically since starting steroid therapy. He did not have associated chest pain or dyspnea. He has not experienced any additional episodes of dizziness or lightheadedness. He was hungry for breakfast Social History Smoking Status: Never Smoker History of Alcohol Use: No Objective Vital Signs Past 12 Hours Date Time Temp Pulse Resp B/P (MAP) Pulse Ox O2 Delivery O2 Flow Rate FiO2 09/15/17 10:56 66 09/15/17 08:01 36.6 59 18 110/64 (79) 96 Room Air 53 105/58 (74) 55 102/62 (75) 09/15/17 07:31 Room Air 09/15/17 04:44 36.6 51 20 110/67 (81) 98 Room Air 09/15/17 04:10 Room Air CPAP 09/15/17 00:10 Room Air CPAP 09/14/17 23:52 36.7 89 18 116/72 (87) 97 Room Air Last Recorded Weight-Kilograms: 98.900 Physical Exam Constitutional: Alert, oriented, in no acute distress HEENT: Head is atraumatic and normocephalic. EOMs intact. Sclera anicteric. Face is symmetric. No perioral cyanosis. Mucous membranes moist. Neck: Supple, no JVD, no carotid bruits Pulmonary: Normal respiratory effort, clear to auscultation bilaterally Cardiac: Regular rate and rhythm, normal S1 and S2, no gallops, no rubs, no murmurs Extremities: No clubbing, cyanosis, or edema. Pulses 2+ and symmetric Abdomen: Normal bowel sounds, soft, non-tender, no abdominal mass palpated Skin: Normal skin color, turgor, and pigmentation, no rash, no skin lesions Neurological: Oriented to person, place, and time Data Laboratory Results: Last 24 Hours Test 09/14/17 14:24 09/14/17 16:21 09/14/17 20:41 09/15/17 06:02 Magnesium Level 2.2 mg/dl Bedside Glucose 137 mg/dl 167 mg/dl White Blood Count 4.40 K/uL Red Blood Count 4.27 M/uL Hemoglobin 15.1 g/dL Hematocrit 43.2 % Mean Corpuscular Volume 101.2 fL Mean Corpuscular Hemoglobin 35.4 pg Mean Corpuscular Hemoglobin Concent 35.0 g/dl RDW Standard Deviation 53.4 fL RDW Coefficient of Variation 15.0 % Platelet Count 128 K/uL Mean Platelet Volume 9.7 fL Sodium Level 139 mmol/L Potassium Level 4.3 mmol/L Chloride Level 106 mmol/L Carbon Dioxide Level 29 mmol/L Anion Gap 4.0 mmol/L Blood Urea Nitrogen 20 mg/dl Creatinine 1.21 mg/dl Est Creatinine Clear Calc Drug Dose 87.5 ml/min Estimated GFR () 82.1 Estimated GFR (Non- 70.9 BUN/Creatinine Ratio 16.5 Random Glucose 132 mg/dl Calcium Level 8.5 mg/dl Imaging: Cardiac perfusion study pending Telemetry reviewed: Occasional episodes of atrial fibrillation with high ventricular rates Assessment and Plan 1. Syncope: This appears to be situational syncope. Cough syncope. 2. Elevated cardiac troponin: Troponin slowly resolving. This may have been a demand related event. He is currently undergoing a cardiac perfusion study which will provide some additional information regarding his risk stratification the need for any additional evaluation. 3. Left ventricular hypertrophy: Unclear if this related to longstanding hypertension or possibly his plasma cell dyscrasia. He has been started on a beta-teto will see if he tolerates this therapy. 4. Atrial fibrillation: He continues to have episodes of paroxysmal atrial fibrillation with higher ventricular rates. He is minimally symptomatic. Ideally we will have a rate control strategy. This is complicated by his resting bradycardia. He has been administered 2 doses of metoprolol I think we will have an opportunity to monitor him for symptoms associated with this therapy. Think it is very possible that he will progress to the point where he requires a pacemaker for tachy-jasper syndrome. An extensive discussion with him today regarding pacemakers. Additionally, I think he has at high risk of thromboembolic events due to his history of hypertension and current medical therapy for multiple myeloma. I would recommend initiation of warfarin therapy for prophylaxis. I would choose this over the alternate agents due to his mild renal dysfunction. However, Marla would be an alternative if he wished to pursue a novel oral anticoagulant.
[2017-09-15 12:00] VITALS: BP 130/76; PULSE 61; TEMP 36.8; O2SAT 97
--- NOTE | 2017-09-15 12:00 | NUR ---
A- Alert and oriented, SR on monitor. Denies pain, dizziness. See PCS for full assessment
--- NOTE | 2017-09-15 13:12 | NUR ---
lumite injector [facility]: Follow up appointments made and the info was added to the DC instructions - Dr. Jc Quan on TuesdaySep 20 at 5:[address] Estrada on TuesdaySep 21 at 2:[address] Johnson on TuesdaySep 30 at 3:30 pm Addendum: 09/15/17 at 1338 by Alysia Perez SERV Revised the above appts and updated the dc instructions - "Please, follow up with Dr. Jc Quan, in the [place] office, on TuesdaySeptember 20 at 5:00 pm. *If you need to change this appointment, you can call his office at [phone]. Please, [facility] with Dr. Estrada on September 22 at 2:00 pm (arrive 1:50 pm). *If you need to change this appointment, you can call the clinic at [phone]. Please, follow up at [facility] Cardiology Office with Dr. Johnson on September 22 at 3:45 pm (arrive 3:30 pm). *This office is located in [address] [facility] [employer] [facility]. If you need to change this appointment, you can call the office at [phone]."
[2017-09-15] MEDS ORDERED: WARF-246 PO (14:38)
[2017-09-15] MEDS ORDERED: LPR25 PO (14:38)
--- NOTE | 2017-09-15 14:46 | Discharge Instructions ---
Discharge Instructions Date of Service Sep 15, 2017. Admission Reason for Admission: Syncope Discharge Discharge Diagnosis / Problem: Syncope, paroxysmal atrial fibrillation Discharge Goals Goal(s): Decrease discomfort, Learn about illness, Diagnostic testing, Therapeutic intervention Activity Recommendations Activity Limitations: resume your previous activity . Instructions / Follow-Up Instructions / Follow-Up You were admitted to the hospital after presenting following a syncopal episode/ loss of consciousness. During your cardiac evaluation, you were found to have paroxysmal atrial fibrillation, in which you go in and out of an irregular heart rhythm. While in this rhythm, you heart rates are quite fast, however your resting regular rhythm is slow. You were evaluated by cardiology and underwent a nuclear stress test, which was normal. You will be discharged on a new medication for the atrial fibrillation. Due to this irregular rhythm, your malignancy, and the Pomalyst that you take, you are at an increased risk of developing clots/having a stroke. You have therefore been started on a blood thinner called warfarin. Medications: *Please take metoprolol tartrate (Lopressor) 12.5 mg by mouth twice a day. *Please take warfarin 5 mg by mouth daily. You have been given a prescription to have a blood test done to check if this medication is therapeutic yet. Please take this to have your blood drawn in 3 days. *Continue your home medications as prescribed. Follow up: *You have been scheduled to follow up with your primary care provider next week. The results of your blood test will be forwarded to his office, and he can adjust the warfarin as needed. *You have also been scheduled to follow up with Dr. Johnson, the television production technician, as well as your oncologist, Dr. Estrada. Please seek medical attention if you experience fevers, chills, sweats, dizziness/lightheadedness, loss of consciousness, increased fatigue, increased confusion/changes in mental status, chest pain, shortness of breath, nausea, vomiting, numbness or tingling. Medication Instructions: * Warfarin is a medicine prescribed to prevent blood clots * Warfarin will thin your blood and help prevent new clots * Take your medications exactly as directed * Never skip a dose. Never take a double dose. If you miss a dose, take it as soon as you remember * It is important for your doctor to monitor your prothrombin time (PT). This is a lab test * Keep your appointment for lab tests Risk of Adverse Drug Reactions and Interactions: * Warfarin increases your risk of bleeding * The food you eat and other medications you take can affect how Warfarin works in your body * Ask your doctor about daily aspirin therapy * It is very important to talk with your doctor about all of the other medicines, antibiotics, vitamins or herbal products that you are taking * All of your medication must be approved by your doctor, including new medicines, as well as medicines you have taken before you started taking Warfarin Diet: * In order for Warfarin to work properly, it is important to keep your intake of Vitamin K as consistent as possible * You should avoid any sudden change in Vitamin K intake * Report any significant changes in your diet or weight to your doctor Call your Doctor if you experience any of the following: * Swelling or Pain in your leg * Sudden, continuous pain deep in a muscle * Pain that worsens when you are active or when you stand still for a long time * Chest Pain * Sudden Shortness of Breath * Rapid or pounding heart beat * Fainting * Dizziness * Cough with blood or bloody sputum * Sweating more than normal * Bruises * heavy or uncontrolled bleeding * Blood in your urine, stool or vomit * Black or tarry stools Caring for Your Self at Home: * Avoid sitting, standing or lying down for long periods without moving your legs and feet * When traveling by car, stop to get out and move around at least once every 3 hours * On long airplane, train or bus rides, get up and move around when possible * If you can't get up, wiggle your toes and tighten your calves to keep your blood moving Current Hospital Diet Patient's current hospital diet: AHA Diet (Heart Healthy) Discharge Diet Recommended Diet: AHA Diet (Heart Healthy) Procedures Procedures Performed: Nuclear stress test Pending Studies Studies pending at discharge: no Laboratory Results Hemoglobin A1c Test 09/13/17 07:17 Range/Units Estimated Average Glucose 146 mg/dl Hemoglobin A1c 6.7 H 4.5-5.6 % Lipid Panel Test 09/14/17 06:29 Range/Units Triglycerides Level 199 H 0-150 mg/dl Cholesterol Level 160 0-200 mg/dl HDL Cholesterol 49 mg/dl Cholesterol/HDL Ratio 3.3 LDL Cholesterol, Calculated 71 mg/dl Medical Emergencies . Who to Call and When: Medical Emergencies: If at any time you feel your situation is an emergency, please call 911 immediately. . Non-Emergent Contact Non-Emergency issues call your: Primary Care Provider, Disbursing Officer, Oncologist Call Non-Emergent contact if: you have a fever, you have any medication questions . Past History Medical & Surgical History: (1) Syncope (2) New onset atrial fibrillation . "Provider Documentation" section prepared by Alcira Lopez. . VTE Core Measure Inpt VTE Proph given/why not?: Enoxaparin (Lovenox)SQ, T.E.D. Stockings, SCD's
--- NOTE | 2017-09-15 15:11 | Discharge Summary ---
Discharge Summary Date of Service Sep 15, 2017. Discharge Summary Admission Date: Sep 13, 2017 at 22:52 Discharge Date: Sep 15, 2017 Discharge Disposition: Home Principal Diagnosis: Syncope, new onset paroxysmal a-fib Problems/Secondary Diagnoses: HTN, HLD, multiple myeloma, anxiety, CKD stage III, DEBBY, GERD Immunizations: Have You Had Influenza Vaccine: Unknown History of Tetanus Vaccine?: Yes History of Pneumococcal: No History of Hepatitis B Vaccine: No Procedures: Echocardiogram: Interpretation Summary * Name: ANNIE WALTON Study Date: 09/13/2017 02:05 PM BP: 135/74 mmHg * Patient Location: [facility]\S\N275\S\1 HR: 78 * : 1970 (M/d/yyyy) Gender: Male Height: 69 in * Age: 47 yrs Ethnicity: [place] Weight: 214 lb * Ordering Physician: Alcira Lopez * Referring Physician: Self, Referred * Performed By: Lea Funes, [facility] * * Reason For Study: SYNCOPE * BSA: 2.1 m2 * The study was technically adequate. * -- Conclusions -- * There is severe concentric left ventricular hypertrophy. * The left ventricular wall motion is normal. * The left ventricle is hyperdynamic. * Ejection Fraction = >70 %. * Diastolic dysfunction, Grade II (pseudonormalization pattern). * There are no prior studies at [facility] for comparison. Procedure Details * A complete two-dimensional transthoracic echocardiogram was performed (2D, M- mode, Doppler and color flow Doppler). Left Ventricle * The left ventricle is normal in size. * There is severe concentric left ventricular hypertrophy. * The left ventricle is hyperdynamic. * Ejection Fraction = >70 %. * The left ventricular wall motion is normal. Right Ventricle * The right ventricle is normal size. * The right ventricular systolic function is normal as assessed by tricuspid annular plane systolic excursion (TAPSE) (normal >1.5 cm). Atria * The left atrial size is normal. * Right atrial size is normal. * There is no evidence of atrial septal defect, but resolution does not allow assessment for a patent foramen ovale. Mitral Valve * The mitral valve is normal. * There is no mitral valve stenosis. * Significant mitral regurgitation is absent. Tricuspid Valve * The tricuspid valve is normal. * There is no tricuspid stenosis. * Significant tricuspid regurgitation is absent. Aortic Valve * The aortic valve is trileaflet. * Aortic stenosis is absent. * There is no significant aortic regurgitation. Pulmonic Valve * The pulmonary valve is not well seen, but the Doppler examination is normal without significant regurgitation or stenosis. Great Vessels * The aortic root and proximal ascending aorta are normal sized. Pericardium/Pleural * There is no pericardial effusion. Great Vessels * Normal inferior vena cava diameter and respiratory variation suggests normal central venous pressure. * Normal inferior vena cava size and collapsability with sniff indicates a normal right atrial pressure of 3 mmHg Left Ventricular Diastolic Function * Diastolic dysfunction, Grade II (pseudonormalization pattern). CHEST ONE VIEW PORTABLE CLINICAL HISTORY: Altered mental status. Weakness. Multiple myeloma. COMPARISON STUDY: Chest radiograph August 24, 2016. FINDINGS: Lung volumes are normal. There is no pneumothorax. There may be a trace left pleural effusion. No evidence of pulmonary edema. Cardiomediastinal silhouette is stable. Multiple rib lesions are better depicted on prior chest CT. IMPRESSION: 1. Possible trace left pleural effusion. 2. Otherwise, unchanged appearance of the chest. ULTRASOUND OF THE CAROTID ARTERIES CLINICAL HISTORY: syncope COMPARISON STUDY: None. TECHNIQUE: Real-time, grayscale, and color Doppler sonography of the carotid arteries was performed. Imaging reviewed in the transverse and longitudinal planes. NASCET criteria was utilized for stenosis calcification. FINDINGS: There is no significant atherosclerotic plaque present . The peak systolic velocity within the right internal carotid artery is 91 cm/sec. The systolic velocity ratio of right internal to common carotid artery is 0.6. The peak systolic velocity within the left internal carotid artery is 85 cm/sec. The systolic velocity ratio left internal to common carotid artery is 0.6. Antegrade flow is seen in the vertebral arteries. The external carotid arteries are patent. Blood pressure in the right arm measured 147 mm/Hg. Blood pressure in the left arm measured 160 mm/Hg. IMPRESSION: No evidence of hemodynamically significant carotid stenosis. Consultations: Cardiology Medication Reconciliation New Medications: Warfarin Sodium (Warfarin Sodium) 5 Mg Tab 1 TAB PO DAILY for 30 Days, #30 TAB Metoprolol Tartrate (Lopressor) 25 Mg Tab 12.5 MG PO BID for 30 Days, #30 TAB Take 0.5 tablets twice a day. Continued Medications: Aspirin (Aspir-81) 81 Mg Tab 81 MG PO DAILY Dexamethasone (Decadron) 4 Mg Tab 20 MG PO WK TAKES ON SATURDAYS Escitalopram (Lexapro) 10 Mg Tab 10 MG PO DAILY, TAB Lisinopril (Lisinopril) 40 Mg Tab 40 MG PO DAILY Pantoprazole (Pantoprazole Sodium) 40 Mg Tab 40 MG PO DAILY PRN for Indigestion Pomalidomide (Pomalyst) 4 Mg Cap 4 MG PO DAILY PT TAKES FOR 21DAYS THEN OFF FOR 7DAYS. PT DUE TO START OFF DAYS NEXT WEEK Discharge Exam Patient reports feeling well. He does report some intermittent palpitations but denies any chest pain or shortness of breath. The patient denies fevers, chills, sweats, chest pain, claudication, cough, wheezing, shortness of breath, nausea, vomiting, abdominal pain, dysuria, hematuria, urinary retention, paralysis, weakness, numbness and tingling. Constitutional: No fever, No chills, No sweats Eyes: No worsening of vision, No eye pain, No diplopia ENT: No hearing loss, No nasal symptoms, No trouble swallowing Respiratory: No cough, No wheezing, No shortness of breath Cardiovascular: +Palpitations. No chest pain, No claudication Abdomen: No pain, No nausea, No vomiting Musculoskeletal: No joint pain, No muscle pain, No swelling Genitourinary - Male: No dysuria, No urinary retention, No hematuria Neurologic: No paralysis, No weakness, No numbness/tingling Integumentary: No rash, No itch, No color change General appearance: +Obese. Well-developed, well-nourished, no apparent distress Head: Normocephalic, atraumatic Eyes: Normal inspection, PERRL, EOMI, no nystagmus ENT: Normal ENT inspection, hearing grossly normal, pharynx normal Neck: Supple, no JVD, trachea midline Respiratory/Chest: Lungs clear to auscultation, normal breath sounds, no respiratory distress Cardiovascular: Regular rate & rhythm, no gallop, no murmur Abdomen/GI: Normal bowel sounds, non-tender, soft Extremities/Musculoskeletal: Normal inspection, no calf tenderness, no pedal edema Neurological/Psych: Alert, normal mood/affect, oriented x 3 Skin: Normal color, warm/dry, no rash Hospital Course 47 y/o male with a history of HTN, HLD, multiple myeloma, anxiety, CKD stage III , DEBBY and GERD who presented to the ED on 09/13 with a syncopal episode. Pt afebrile, VSS on arrival. Orthostatics done and negative. CXR shows no acute disease. EKG shows old inferior and lateral TWI, no acute changes. BSG elevated at 287 with no history of diabetes, however pt currently on Prednisone due to recent pneumonia and on chronic Decadron. Troponin mildly elevated at 0.110. Labs otherwise grossly unremarkable. Syncope, elevated troponin--resolving -Admit to telemetry for cardiac/arrhythmia monitoring. Pt with intermittent episodes of a-fib, during which HR in the 140s, however resting rhythm is sinus , typically bradycardic -Troponin stable, peaked at 0.188 and now trending down -Echo shows severe LVH. LV hyperdynamic, EF over 70%. No wall motion abnormalities. Grade II diastolic dysfunction. No significant valvular pathology. -Carotid ultrasound negative, no hemodynamically significant stenosis. -Orthostatic BP q shift -Non-hypotensive, non-hypoxic, non-tachycardic. D-dimer negative -Lipid panel shows triglycerides at 199, total cholesterol 160, non-HDL 111 Paroxysmal a-fib -Cardiology consulted, appreciate recs: Discussed with patient possibility of pacemaker for tachy-jasper down the road. For now would continue beta blockade and initiate anticoagulation. -Nuclear stress test negative -Lopressor 12.5 mg PO BID -Warfarin 5 mg PO qd. Check PT/INR in 3 days, manage with PCP -F/u with Dr. Johnson outpt Recent pneumonia--improving -Finished Z-pack, no leukocytosis or fever -Elevated trop could be related to recent acute illness/demand ischemia -Prednisone 10 mg PO qd x 2 more doses to complete outpt taper DM II--HgbA1c 6.7 on 09/13 -Pt on chronic steroids -Hold off on maintenance medications for now. Will defer to PCP for management long-term. Did educate pt about diet and exercise modifications -BSG improved on 09/14 from admission -Insulin sliding scale -Check BSGs q ac and qhs HTN, HLD--stable -Continue ASA, lisinopril 40 mg PO qd, BB as above Multiple myeloma s/p bone marrow transplant January 2015--stable -Pt follows with Dr. Balaban locally and at [facility] oncology -Continue Pomalyst 4 mg PO qd -Pt takes Decadron 4 mg PO weekly on Saturdays Anxiety--stable -Continue Lexapro 10 mg PO qd CKD stage III--stable -Creatinine at baseline (1.3-1.5) DEBBY -CPAP GERD -Protonix prn DVT prophylaxis -Enoxaparin 40 mg SC q24h -ZANDRA tran and Iman Code Status -Level I, FULL RESUSCITATION STATUS Supervising Note Dr. Chambers I performed a history and physical examination on the patient. I reviewed above note and agree with it. I discussed plan with APC and patient. During my face to face encounter with the patient, I answered all of the patient's questions. We discussed risks and benefits of his anticoagulation. Patient will defer INR monitoring to his PCP. Total Time Spent: Greater than 30 minutes This includes examination of the patient, discharge planning, medication reconciliation, and communication with other providers. Discharge Instructions Please refer to the electronic Patient Visit Report (Discharge Instructions) for additional information. Additional Copies To Jc Quan M.D.
[2017-09-15 15:45] VITALS: BP_SYST 129; BP_SYST 139; BP_DIAS 73; BP_DIAS 77; BP_DIAS 81; PULSE 58; PULSE 65; TEMP 36.7; O2SAT 98
[2017-09-15] MEDS ORDERED: WARFARIN SOD 5 MG TAB PO SCH (16:00)
--- NOTE | 2017-09-15 16:09 | NUR ---
A- Discharged to home with . Verbalized understanding discharge instructions and Rx
--- NOTE | 2017-09-15 18:59 | Myocardial Perfusion Study ---
Myocardial Perfusion Study Rpt Myocardial Perfusion Study Rpt Date of Service 09/15/2017 Myocardial Perfusion Study Rpt Procedure: 1. Myocardial perfusion study performed in multiple views/images 2. Lexiscan pharmacologic stress ECG Indications: 1. Syncope 2. Elevated troponin Consent: Informed written consent was obtained prior to the procedure. Ordering physician: Dr. Johnson Procedural details: For the stress portion of the study, Lexiscan 0.4 mg was intravenously administered followed by a saline flush. This was followed by 33.2 mCi of technetium 99m Cardiolite, injected at 9:20 a.m. on 09/15/2016. 30 minutes following the injection, imaging of the heart was performed in multiple projections. For the rest portion of the study, 10.7 mCi technetium 99m Cardiolite was injected intravenously at 7:40 a.m. on 09/15/2016. 1 hour following the injection, imaging of the heart was performed in the same projections. Lexiscan stress ECG: Resting ECG demonstrated: Sinus bradycardia at 52 bpm. Inferolateral T-wave inversion Maximum heart rate: 70 bpm Resting blood pressure: 112/63 mmHg Maximum blood pressure: 112/63 mmHg Maximal, age-predicted heart rate: 40 % Significant ST changes: None Arrhythmia: None Symptoms: No chest pain reported. Findings: Rotating raw imaging demonstrated no significant lung uptake. There is no significant motion artifact. Heart size appeared normal. Myocardial perfusion demonstrated a very small area of mildly reduced uptake involving the base to early distal inferolateral wall. This defect was reversible. There was intestinal uptake/artifact involving the border of this area in stress imaging. Ejection fraction: 49% calculated EF, but visually the ejection fraction appeared normal. Wall motion: Normal No significant transient ischemic dilation. Impression: 1. There was a very small mid to early distal inferolateral reversible defect which could represent attenuation artifact from intestinal uptake, verses small area of ischemia. 2. No significant infarct suggested. 3. Normal left ventricular systolic function. 4. Normal wall motion. 5. Nondiagnostic Lexiscan ECG. 6. Findings were discussed with ordering physician, Dr. Johnson.
--- NOTE | 2017-09-16 16:32 | NUR ---
offc spec [facility]: I called pt for follow up call and he asks me about when he should get his PT and INR drawn. I contact Alcira Lopez PA-C and she tells me that he can have it drawn on Tuesday09/19/17. Pt will stop at the hospital ([facility]) after work on Tuesday - approx 2-2:30 pm. I will then call the results to his PCP, Dr. Jc Quan. I called the [facility] to see if they could find time to see this pt next week. However, Dr. Burnett is not in the clinic today. I will call back on Tuesday to talk w/ Dr. Burnett. The pt has an appt in [place] on Sep 22 so we will have to avoid that date. Addendum: 09/19/17 at 1205 by Alysia Perez SERV I was able to arrange a [facility] appt tomorrow Sep 20 at 2:00 pm. Pt is agreeable to this. Pt asks me to reschedule the appts w/ Dr. Estrada and Dr. Johnson - Dr. Estrada rescheduled for TuesdaySeptember 26 at 3:[address] Johnson rescheduled for TuesdayOctober 05 at 4:00 pm Addendum: 09/19/17 at 1212 by Alysia Perez SERV Order faxed to [facility]. Addendum: 09/19/17 at 1305 by Alysia Perez SERV I contacted Dr. Chambers regarding the [facility] appt for tomorrow and he approves pt waiting to get INR drawn then. I call pt w/ the above appt info and tell him that he can get his INR drawn tomorrow at the [facility]. Pt verbalizes his understanding. He is able to repeat the appt info back to me w/ 100% accuracy.
[2017-09-20] MEDS ORDERED: OMEG10007 PO (17:25)
[2017-10-03] MEDS ORDERED: WARF5TAB7 PO (15:14)
[2017-10-10] MEDS ORDERED: WARF5TAB7 PO (15:04)
[2017-10-19] MEDS ORDERED: ALBU18002 INH (16:36)
[2017-10-19] MEDS ORDERED: ONDA4TAB46 PO (16:42)
[2017-10-25] MEDS ORDERED: CRD200 PO (10:22)
[2017-11-10] MEDS ORDERED: METO25TA56 PO (12:36)
[2017-11-10] MEDS ORDERED: VLCI INJ (12:36)
[2017-11-14] MEDS ORDERED: AMOX875T PO (01:53)
[2017-11-20] MEDS ORDERED: FURO20TA PO (15:42)
[2017-11-26] MEDS ORDERED: VNTHFA/IN INH (10:34)
[2017-11-26] MEDS ORDERED: POTA10TA PO (10:34)
[2017-11-26] MEDS ORDERED: BUME1TAB PO (10:34)
[2017-12-12] MEDS ORDERED: DRON400T PO (11:06)
[2017-12-26] MEDS ORDERED: WARF2.5T8 PO (10:51)
[2018-04-05] MEDS ORDERED: BUME1TAB PO (14:05)
[2018-04-05] MEDS ORDERED: ACYC400T PO (14:05)
[2018-04-05] MEDS ORDERED: PRED20TA PO (14:05)
[2018-04-05] MEDS ORDERED: POTA20TA13 PO (14:05)
[2018-04-21] MEDS ORDERED: IMD2X PO (14:44)
[2018-04-21] MEDS ORDERED: AZIT-57 PO (14:44)
== END 2017-09-15 16:11 | disposition home or self-care (01) | DRG 204 ==
LOC: C.EDB 06:58 → C.MED 10:35 → ENRESERV 10:55 → OBSVTOIN 22:52
PROVIDERS: ADMIT Internal Medicine Sports Medicine; ATTEND Internal Medicine Sports Medicine
DX: R05 Cough (principal); C90.00 Multiple myeloma not having achieved remission; I12.9 Hypertensive chronic kidney disease with stage 1 through stage 4 chronic kidney disease, or unspecified chronic kidney disease; E78.5 Hyperlipidemia, unspecified; I48.0 Paroxysmal atrial fibrillation; G47.33 Obstructive sleep apnea (adult) (pediatric); F41.9 Anxiety disorder, unspecified; K21.9 Gastro-esophageal reflux disease without esophagitis; E11.22 Type 2 diabetes mellitus with diabetic chronic kidney disease; N18.3 Chronic kidney disease, stage 3 (moderate); Z79.52 Long term (current) use of systemic steroids; Z79.82 Long term (current) use of aspirin; Z79.899 Other long term (current) drug therapy; Z87.01 Personal history of pneumonia (recurrent)

== ENCOUNTER 2017-10-11 20:29 | Inpatient (IN) | payer BC ==
[~2017-10-11] VITALS: Ht 175.3 cm; Wt 107.5 kg
[~2017-10-11 20:29] MED LIST changes: +DXM/4 PO; -ESOM20CA PO; -LISI-725 PO; +LPR25 PO; +LSN40 PO; +OMEG10007 PO; +PANT40TA2 PO; +POMA4CAP PO; +WARF5TAB7 PO; -revlimid PO
--- NOTE | 2017-10-11 21:42 | EMERGENCY ROOM VISIT NOTE ---
History Report prepared by Felisa: Victor Hugo Wood Under the Supervision of: Dr. Ulises Bran M.D. First contact with patient: 21:21 Chief Complaint: SHORTNESS OF BREATH Stated Complaint: SOB AND CHEST PRESSURE Nursing Triage Summary: patient presents with c/o SOB intermittently with activity throughout the day along with chest discomfort that has worsened throughout the day and patient now has SOB and chest discomfort at rest. patient states he was recently diagnosed with LVH and Afib . patient recently saw cardiology and was placed on holtor montior which was removed today. patient has hx of multiple myeloma. currently taking coumadin and beta blockers for afib. History of Present Illness The patient is a 47 year old white male with a past medical history of CHF, GERD , autologous stem cell transplant, HTN, A-Fib, multiple myeloma who presents to the ED with a cc of intermittent shortness of breath beginning a 6.5 hours ago. Pt states he has been experiencing shortness of breath when walking up the stairs but never when at work. He reports while walking around at work today, he developed shortness of breath with intermittent left-sided chest heaviness. Pt notes he was discharged from the hospital four weeks ago. He states his chest heaviness does not radiate to other parts of his body. Pt had a 24 hour heart monitor on that was removed yesterday. Positive night sweats, chewing tobacco, history of anxiety as a child, taking Coumadin. Negative cough, fever, chills, problems defecating, urinary symptoms, nausea, vomiting, history of blood clots, neglecting his medication, history of an LA, recent stressors. Pt was adopted, FHx is unknown. Source of History: patient Onset: 6.5 hours ago Position: other (global) Quality: other (SOB) Timing: intermittent Associated Symptoms: No fevers, No chills, No cough, No nausea, No vomiting , No urinary symptoms Note: Associated symptoms: intermittent left-sided chest heaviness, night sweats Denies: problems defecating Review of Systems See HPI for pertinent positives and negatives. A total of ten systems were reviewed and were otherwise negative. 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 (8) Multiple myeloma (9) New onset atrial fibrillation Surgical Problems: (1) History of autologous stem cell transplant Family History Not known due to adoption Social History Smoking Status: Never Smoker Smokeless Tobacco Use: Yes Drug Use: none Marital Status: Occupation Status: employed Current/Historical Medications Scheduled Aspirin (Aspir-81), 81 MG PO DAILY Dexamethasone (Decadron), 20 MG PO WK Escitalopram (Lexapro), 10 MG PO DAILY Lisinopril (Lisinopril), 40 MG PO DAILY Metoprolol Tartrate (Lopressor) (Lopressor), 12.5 MG PO BID Pomalidomide (Pomalyst), 4 MG PO DAILY Warfarin Sod (Jantoven), 2.5 MG PO [id number] Warfarin Sod (Jantoven), 5 MG PO WK Scheduled PRN Pantoprazole (Pantoprazole Sodium), 40 MG PO DAILY PRN for Indigestion Allergies Coded Allergies: No Known Allergies (Unverified , 10/11/17) Physical Exam Vital Signs Date Time Temp Pulse Resp B/P (MAP) Pulse Ox O2 Delivery O2 Flow Rate FiO2 10/12/17 00:14 120/54 10/11/17 23:05 83 27 97 10/11/17 23:00 78 25 94 10/11/17 22:55 74 36 116/62 95 Room Air 10/11/17 22:06 72 10/11/17 22:03 163 10/11/17 21:37 97 2.0 10/11/17 21:28 96 Room Air 10/11/17 21:27 79 24 118/54 97 Room Air 10/11/17 21:24 94 Room Air 10/11/17 21:21 76 10/11/17 20:48 36.8 76 18 107/64 96 Room Air Physical Exam GENERAL: Awake, alert, well-appearing, NAD HENT: Normocephalic, atraumatic. EYES: Normal conjunctiva. Sclera non-icteric. NECK: Supple. No nuchal rigidity. FROM. RESPIRATORY: CTAB, no rhonchi, wheezing, crackles CARDIAC: RRR, no MRG ABDOMEN: Soft, NTND, BS+ MSK: No chest wall TTP, no LE edema NEURO: GCS 15, CN 2-12 intact, moves all 4s on command SKIN: No rash or jaundice noted. Medical Decision & Procedures ER Provider Diagnostic Interpretation: X-ray: Per my interpretation, radiologist review. SINGLE VIEW CHEST CLINICAL HISTORY: Atypical chest pain. FINDINGS: An AP, portable, upright chest radiograph is compared to study dated 09/13/2017. Correlation is made with chest CT dated 05/09/2014. The examination is degraded by portable technique and patient rotation. The heart is enlarged. There is mild congestion of the central pulmonary vessels. Bibasilar airspace opacities are identified. No large pleural effusion or pneumothorax is seen. The bony thorax is grossly intact. IMPRESSION: 1. Cardiomegaly with mild pulmonary vascular congestion. 2. Bibasilar airspace opacities likely represent atelectasis. Correlate clinically for evidence of an infectious/inflammatory pneumonitis. Electronically signed by: Daniel Alcantara M.D. 10/11/2017 10:25 PM Dictated Date/Time: 10/11/2017 10:23 PM Laboratory Results 10/11/17 21:40 Red Blood Count 3.65, Mean Corpuscular Volume 100.0, Mean Corpuscular Hemoglobin 35.3, Mean Corpuscular Hemoglobin Concent 35.3, Mean Platelet Volume 10.1, Neutrophils (%) (Auto) 44.6, Lymphocytes (%) (Auto) 12.0, Monocytes (%) ( Auto) 16.2, Eosinophils (%) (Auto) 25.7, Basophils (%) (Auto) 1.0, Neutrophils # (Auto) 1.79, Lymphocytes # (Auto) 0.48, Monocytes # (Auto) 0.65, Eosinophils # (Auto) 1.03, Basophils # (Auto) 0.04 10/11/17 21:40 Test 10/11/17 21:40 10/11/17 21:57 White Blood Count 4.01 K/uL (4.8-10.8) Red Blood Count 3.65 M/uL (4.7-6.1) Hemoglobin 12.9 g/dL (14.0-18.0) Hematocrit 36.5 % (42-52) Mean Corpuscular Volume 100.0 fL (80-100) Mean Corpuscular Hemoglobin 35.3 pg (25-34) Mean Corpuscular Hemoglobin Concent 35.3 g/dl (32-36) Platelet Count 119 K/uL (130-400) Mean Platelet Volume 10.1 fL (7.4-10.4) Neutrophils (%) (Auto) 44.6 % Lymphocytes (%) (Auto) 12.0 % Monocytes (%) (Auto) 16.2 % Eosinophils (%) (Auto) 25.7 % Basophils (%) (Auto) 1.0 % Neutrophils # (Auto) 1.79 K/uL (1.4-6.5) Lymphocytes # (Auto) 0.48 K/uL (1.2-3.4) Monocytes # (Auto) 0.65 K/uL (0.11-0.59) Eosinophils # (Auto) 1.03 K/uL (0-0.5) Basophils # (Auto) 0.04 K/uL (0-0.2) RDW Standard Deviation 53.9 fL (36.4-46.3) RDW Coefficient of Variation 15.1 % (11.5-14.5) Immature Granulocyte % (Auto) 0.5 % Immature Granulocyte # (Auto) 0.02 K/uL (0.00-0.02) Prothrombin Time 22.5 SECONDS (9.0-12.0) Prothromb Time International Ratio 2.2 (0.9-1.1) Activated Partial Thromboplast Time 39.4 SECONDS (21.0-31.0) Partial Thromboplastin Ratio 1.5 D-Dimer 3910 ug/L FEU (0-500) Anion Gap 8.0 mmol/L (3-11) Est Creatinine Clear Calc Drug Dose 82.0 ml/min Estimated GFR () 71.3 Estimated GFR (Non- 61.5 BUN/Creatinine Ratio 13.5 (10-20) Calcium Level 8.4 mg/dl (8.5-10.1) Total Bilirubin 0.4 mg/dl (0.2-1) Direct Bilirubin 0.1 mg/dl (0-0.2) Aspartate Amino Transf (AST/SGOT) 34 U/L (15-37) Alanine Aminotransferase (ALT/SGPT) 77 U/L (12-78) Alkaline Phosphatase 69 U/L (45-117) Pro-B-Type Natriuretic Peptide 2601 pg/ml (0-450) Total Protein 5.6 gm/dl (6.4-8.2) Albumin 2.8 gm/dl (3.4-5.0) Lipase 424 U/L (73-393) Venous Blood pH 7.35 (7.36-7.41) Venous Blood Partial Pressure CO2 49 mmHg (38.0-50.0) Venous Blood Partial Pressure O2 23 mmHg Venous Blood HCO3 26 mmol/L Venous Blood Oxygen Saturation < 60.0 % Venous Blood Base Excess 0.2 mEq/L Laboratory results reviewed by me Medications Administered Medications (Trade) Dose Ordered Sig/Garcia Route Start Time Stop Time Status Last Admin Dose Admin Aspirin (Aspirin Chew) 324 mg NOW STAT PO 10/11/17 22:57 10/11/17 22:58 DC 10/11/17 23:10 324 MG ECG Indication: chest pain, SOB/dyspnea Rate (beats per minute): 76 Rhythm: sinus with SA Findings: T-wave inversion (Lateral and inferior leads), other (Normal interval , normal axis) Comparison ECG Date: 09/15/17 Change: Second EKG in the same visit: ST vs SVT with a rate of 166. Short NE. Normal axis. TWI in lateral leads. Third EKG in the same visit: Unchanged from the first EKG except with a rate of 79. Comparison EKG from 09/15/17 - T-wave activity is old. Patient's electrocardiogram interpreted by me. ED Course 2140: The patient was evaluated in room B11B. A complete history and physical exam was performed. 2246: Upon reexamination, the patient was resting comfortably and feeling better. I discussed the test results and treatment plan with him. The patient will be evaluated for further management. 2346: I discussed the patient's case with Dr. Skaggs, [facility] Hospitalist. The patient will be evaluated for further management and care. Medical Decision The patient is a 47 year old white male with a past medical history of CHF, GERD , autologous stem cell transplant, HTN, A-Fib, multiple myeloma who presents to the ED with a cc of intermittent shortness of breath beginning a 6.5 hours ago. Differential diagnosis: Etiologies such as cardiac ischemia, aortic dissection, pulmonary embolism, pneumonia, pneumothorax, musculoskeletal, infections, pericarditis, myocarditis , esophageal rupture, gastrointestinal, infections, reactive airway disease, COPD, CHF, as well as others were entertained. Patient seen and evaluated at bedside. Patient recently dx'ed w/ a fib started on coumadin and toprol. patient w/ complaints of KARIMI and chest discomfort. Patient w/ EKG w/ TWI in lateral and inferior leads. Old changes. During stay had a run of monomorphic narrow complex tachycardia. ?SVT vs a fib w/ aberrancy vs AVNRT vs sinus tach. Appears fairly regular and rate only 160s, believe possibly AVNRT. Patient blood work showed +trop. Given ASA. No new changes on EKGs with regular rate and upon review of EMR had discussed pacemaker given ? tachy/jasper syndrome and given his diastolic dysfunction seen on last ECHO w/ EF 70%. They both may be causing him symptoms. Had neg nuclear stress test during prior admission earlier this month. Blood work w/ elevated BNP, trop, and dimer. Does have past history of MM and does have mild pancytopenia. Discussed with hospitalist given his symptomatic arrythmia witnessed in ER, concern for diastolic associated HF admitted. Also discussed +dimer result and posislbe MM hx vs possible pulm HTN/PE. CT PE completed, neg for PE. Consults Time Called: 2300 Consulting Physician: Dr. Skaggs, [facility] Hospitalist Returned Call: [phone] I discussed the patient's case with Dr. Skaggs, [facility] Hospitalist. The patient will be evaluated for further management and care. Impression Primary Impression: Tachy-jasper syndrome Additional Impressions: Elevated troponin SOB (shortness of breath) Chest pain Tobacco abuse counseling Scribe Attestation The scribe's documentation has been prepared under my direction and personally reviewed by me in its entirety. I confirm that the note above accurately reflects all work, treatment, procedures, and medical decision making performed by me. Departure Information Dispostion Being Evaluated By Hospitalist Referrals Jc Quan M.D. (PCP) Patient Instructions My [facility] Problem Qualifiers Additional Impressions: Chest pain Chest pain type: unspecified Qualified Codes: R07.9 - Chest pain, unspecified
[2017-10-11 22:04] LABS: BASO ABS # 0.04 K/uL (0-0.2); EOS % 25.7 %; EOS ABS # 1.03 K/uL (0-0.5); HEMATOCRIT 36.5 % (42-52); HEMOGLOBIN 12.9 g/dL (14.0-18.0); IG# 0.02 K/uL (0.00-0.02); LYMPH ABS # 0.48 K/uL (1.2-3.4); MEAN CORPUSCULAR HEMOGLOBIN 35.3 pg (25-34); MEAN CORPUSCULAR HGB CONC 35.3 g/dl (32-36); MEAN PLATELET VOLUME 10.1 fL (7.4-10.4); MONO % 16.2 %; MONO ABS # 0.65 K/uL (0.11-0.59); NEUT % 44.6 %; NEUT ABS # 1.79 K/uL (1.4-6.5); PLATELET COUNT 119 K/uL (130-400); RED CELL DISTRIBUTION WIDTH CV 15.1 % (11.5-14.5); RED CELL DISTRIBUTION WIDTH SD 53.9 fL (36.4-46.3); WHITE BLOOD COUNT 4.01 K/uL (4.8-10.8)
[2017-10-11 22:11] LABS: ALBUMIN 2.8 gm/dl (3.4-5.0); CALCIUM 8.4 mg/dl (8.5-10.1); CREATININE 1.36 mg/dl (0.60-1.40); POTASSIUM 3.8 mmol/L (3.5-5.1)
[2017-10-11 22:23] LABS: TOTAL PROTEIN 5.6 gm/dl (6.4-8.2)
--- NOTE | 2017-10-11 22:26 | DIAGNOSTIC IMAGING REPORT ---
SINGLE VIEW CHEST CLINICAL HISTORY: Atypical chest pain. FINDINGS: An AP, portable, upright chest radiograph is compared to study dated 09/13/2017. Correlation is made with chest CT dated 05/09/2014. The examination is degraded by portable technique and patient rotation. The heart is enlarged. There is mild congestion of the central pulmonary vessels. Bibasilar airspace opacities are identified. No large pleural effusion or pneumothorax is seen. The bony thorax is grossly intact. IMPRESSION: 1. Cardiomegaly with mild pulmonary vascular congestion. 2. Bibasilar airspace opacities likely represent atelectasis. Correlate clinically for evidence of an infectious/inflammatory pneumonitis. Electronically signed by: Daniel Alcantara M.D. 10/11/2017 10:25 PM Dictated Date/Time: 10/11/2017 10:23 PM
[2017-10-11 22:29] LABS: INR 2.2 (0.9-1.1); PTT PATIENT 39.4 SECONDS (21.0-31.0)
[2017-10-11] MEDS ORDERED: METO25TA56 PO (22:35)
[2017-10-11] MEDS ORDERED: ASPIRIN 324 MG CHEW PO STA (22:57)
[2017-10-12] VITALS (9 sets, daily range): BP systolic 81–137; BP diastolic 45–79; PULSE 63–151; TEMP 36.5–36.9; O2SAT 92–97; Ht 175.3 cm; Wt 107.5 kg
[2017-10-12] MEDS ORDERED: OPTIRAY 320 IV PRN
[2017-10-12] MEDS ORDERED: SODIUM CHLORIDE 0.9% 1000ML 1,000 ML IV SCH
--- NOTE | 2017-10-12 00:11 | History and Physical ---
History & Physical Date & Time of Service: Oct 12, 2017 at 00:00 Chief Complaint: Sob And Chest Pressure Primary Care Physician: Jc Quan M.D. History of Present Illness Source: patient, spouse, hospital records 47 y/o M Hx multiple myeloma, grade II diastolic dysfunction, paroxysmal AF, DEBBY , CKD II. Pt presents with progressive exertional SOB and intermittent CP. He is having difficulty ascending stairs. His CP is central and occurs with activity. While on monitor in the ER he became markedly tachycardic. An EKG may be consistent with AVNT. He reverted back to a sinus rhythm spontaneously. Initial labs are notable for an elevated troponin, elevated D dimer and mild pancytopenia which does however seem to be of recent onset. The pt is fully anticoagulated with Coumadin which he was placed on 3 weeks prior due to PAF. He states that the prior week, he had an INR of > 4. Past Medical/Surgical History 1) Multiple myeloma - stem cell transplant 2014 - currently treated with Pomalidomide and Q2wk Dexamethasone. 2) Diastolic CHF - grade II diastolic dysfunction on recent echo - preserved EF 3) DEBBY - CPAP 4) Paroxysmal AF - pt is under consideration for pacer placement due to intermittent tachycardia with a low resting HR 5) HTN 6) GERD 7) CKD II Family History Not known due to adoption Pt is adopted Social History Smoking Status: Never Smoker Drug Use: none Marital Status: Housing status: lives with family Occupational Status: employed Immunizations History of Influenza Vaccine: Unknown History of Tetanus Vaccine?: Yes History of Pneumococcal: No History of Hepatitis B Vaccine: No Multi-Drug Resistant Organisms History of MDRO: No Allergies Coded Allergies: No Known Allergies (Unverified , 10/11/17) Home Medications Scheduled Aspirin (Aspir-81), 81 MG PO DAILY Dexamethasone (Decadron), 20 MG PO WK Escitalopram (Lexapro), 10 MG PO DAILY Lisinopril (Lisinopril), 40 MG PO DAILY Metoprolol Tartrate (Lopressor) (Lopressor), 12.5 MG PO BID Pomalidomide (Pomalyst), 4 MG PO DAILY Warfarin Sod (Jantoven), 2.5 MG PO [id number] Warfarin Sod (Jantoven), 5 MG PO WK Scheduled PRN Pantoprazole (Pantoprazole Sodium), 40 MG PO DAILY PRN for Indigestion Review of Systems Constitutional: No fever, No chills, No sweats Eyes: No worsening of vision ENT: No hearing loss, No unusual epistaxis, No nasal symptoms Respiratory: + shortness of breath, + dyspnea on exertion, + dyspnea at rest, No cough Cardiovascular: + chest pain (intermittent with exertion) Abdomen: No pain, No nausea, No vomiting Musculoskeletal: No joint pain Genitourinary - Male: No hematuria, No dysuria Neurologic: + weakness, No memory loss, No paralysis Psychiatric: No depression symptoms Endocrine: + fatigue Hematologic / Lymphatic: No abnormal bleeding/bruising Integumentary: No rash Allergic / Immunologic: No environmental allergies Physical Exam Vital Signs Date Time Temp Pulse Resp B/P (MAP) Pulse Ox O2 Delivery O2 Flow Rate FiO2 10/11/17 22:55 74 36 116/62 95 Room Air 10/11/17 22:06 72 10/11/17 22:03 163 10/11/17 21:37 97 2.0 10/11/17 21:28 96 Room Air 10/11/17 21:27 79 24 118/54 97 Room Air 10/11/17 21:24 94 Room Air 10/11/17 21:21 76 10/11/17 20:48 36.8 76 18 107/64 96 Room Air General Appearance: + pertinent finding (Overweight, middle-aged male - no distress) Head: normocephalic Eyes: normal inspection ENT: normal ENT inspection, pharynx normal Neck: supple, thyroid normal Respiratory/Chest: chest non-tender, normal breath sounds, + pertinent finding (Air entry may be reduced at bases BL) Cardiovascular: regular rate, rhythm, no edema, no gallop Abdomen/GI: normal bowel sounds Back: normal inspection, no CVA tenderness Extremities/Musculoskelatal: normal inspection, no calf tenderness Neurologic/Psych: plunket nurse II-XII nml as tested, no motor/sensory deficits, alert Skin: normal color Diagnostics Laboratory Results Results Past 24 Hours Test 10/11/17 21:40 10/11/17 21:57 Range/Units White Blood Count 4.01 4.8-10.8 K/uL Red Blood Count 3.65 4.7-6.1 M/uL Hemoglobin 12.9 14.0-18.0 g/dL Hematocrit 36.5 42-52 % Mean Corpuscular Volume 100.0 80-100 fL Mean Corpuscular Hemoglobin 35.3 25-34 pg Mean Corpuscular Hemoglobin Concent 35.3 32-36 g/dl Platelet Count 119 130-400 K/uL Mean Platelet Volume 10.1 7.4-10.4 fL Neutrophils (%) (Auto) 44.6 % Lymphocytes (%) (Auto) 12.0 % Monocytes (%) (Auto) 16.2 % Eosinophils (%) (Auto) 25.7 % Basophils (%) (Auto) 1.0 % Neutrophils # (Auto) 1.79 1.4-6.5 K/uL Lymphocytes # (Auto) 0.48 1.2-3.4 K/uL Monocytes # (Auto) 0.65 0.11-0.59 K/uL Eosinophils # (Auto) 1.03 0-0.5 K/uL Basophils # (Auto) 0.04 0-0.2 K/uL RDW Standard Deviation 53.9 36.4-46.3 fL RDW Coefficient of Variation 15.1 11.5-14.5 % Immature Granulocyte % (Auto) 0.5 % Immature Granulocyte # (Auto) 0.02 0.00-0.02 K/uL Prothrombin Time 22.5 9.0-12.0 SECONDS Prothromb Time International Ratio 2.2 0.9-1.1 Activated Partial Thromboplast Time 39.4 21.0-31.0 SECONDS Partial Thromboplastin Ratio 1.5 D-Dimer 3910 0-500 ug/L FEU Sodium Level 136 136-145 mmol/L Potassium Level 3.8 3.5-5.1 mmol/L Chloride Level 106 98-107 mmol/L Carbon Dioxide Level 23 21-32 mmol/L Anion Gap 8.0 3-11 mmol/L Blood Urea Nitrogen 18 7-18 mg/dl Creatinine 1.36 0.60-1.40 mg/dl Est Creatinine Clear Calc Drug Dose 82.0 ml/min Estimated GFR () 71.3 Estimated GFR (Non- 61.5 BUN/Creatinine Ratio 13.5 10-20 Random Glucose 202 70-99 mg/dl Calcium Level 8.4 8.5-10.1 mg/dl Total Bilirubin 0.4 0.2-1 mg/dl Direct Bilirubin 0.1 0-0.2 mg/dl Aspartate Amino Transf (AST/SGOT) 34 15-37 U/L Alanine Aminotransferase (ALT/SGPT) 77 12-78 U/L Alkaline Phosphatase 69 45-117 U/L Troponin I 0.071 0-0.045 ng/ml Pro-B-Type Natriuretic Peptide 2601 0-450 pg/ml Total Protein 5.6 6.4-8.2 gm/dl Albumin 2.8 3.4-5.0 gm/dl Lipase 424 73-393 U/L Venous Blood pH 7.35 7.36-7.41 Venous Blood Partial Pressure CO2 49 38.0-50.0 mmHg Venous Blood Partial Pressure O2 23 mmHg Venous Blood HCO3 26 mmol/L Venous Blood Oxygen Saturation < 60.0 % Venous Blood Base Excess 0.2 mEq/L Diagnostic Radiology CXR: 1. Cardiomegaly with mild pulmonary vascular congestion. 2. Bibasilar airspace opacities likely represent atelectasis. Correlate clinically for evidence of an infectious/inflammatory pneumonitis. CTA: BL moderate pleural effusions Mild BL infiltrates Abnormal, mottled appearance of osseous structures Fatty liver EKG EKG 1: SInus , PACs , lat and inf inversions which are chronic 2: Possible AVNT at rate of 160 3: NSR, ant and inf inversions as above Impression Assessment and Plan 47 y/o M Hx multiple myeloma, grade II diastolic dysfunction, paroxysmal AF, DEBBY , CKD II. Pt presents with progressive exertional SOB and intermittent CP. He is having difficulty ascending stairs. His CP is central and occurs with activity. While on monitor in the ER he became markedly tachycardic. An EKG may be consistent with AVNT. He reverted back to a sinus rhythm spontaneously. Initial labs are notable for an elevated troponin, elevated D dimer and mild pancytopenia which does however seem to be of recent onset. The pt is fully anticoagulated with Coumadin which he was placed on 3 weeks prior due to PAF. He states that the prior week, he had an INR of > 4. 1) Exertional dyspnea - CTA reveals BL effusions. He is diagnosed with grade II diastolic dysfunction, however, he also states that he had pleural effusions when initially diagnosed with multiple myeloma. BL mild infiltrated are also reported without clinical signs/symptoms of PNM. His exam is not consistent with volume overload and he is not requiring 02. He does not take a diuretic daily. We will provide one dose of Lasix and request a cardiology consult. 2) Exertional CP - narrow complex tachycardia - elevated troponin - cardiology is consulted, he is admitted to telemetry. Pt is placed on ASA and is fully anticoagulated with Coumadin. He did not complain of CP exactly when the tachycardic rhythm was noted. He will continue BID Metoprolol and was apparently being considered for pacer placement due to a low resting HR. 3) CKD II - creat is at baseline - we will trend AM as he did receive contrast 4) DEBBY - will provide a CPA 5) Multiple myeloma - pancytopenia - considering his labs and above CT findings , oncology will be consulted - his infiltrates and effusions may be related to malignancy. If there is no improvement with diuresis, thoracentesis should be obtained if possible. Full code - Coumadin prophylaxis Total time for this admit including review of labs, meds, imaging, EKG, extensive records - discussion with pt and ER attending - 45 min Level of Care Telemetry Resuscitation Status FULL NO CARDIOVERSION VTE Prophylaxis Given or contraindicated: Warfarin (Coumadin)
[2017-10-12] MEDS ORDERED: PANTOprazole SOD 40 MG TAB PO PRN (00:15)
[2017-10-12] MEDS ORDERED: ZOLPIDEM TARTRATE 5 MG TAB PO PRN (01:00)
[2017-10-12] MEDS ORDERED: POLYETHYLENE (MIRALAX) 17 GM PACK PO PRN (01:00)
[2017-10-12] MEDS ORDERED: MAGNESIUM HYDROXIDE SUSP 30 ML UDC PO PRN (01:00)
[2017-10-12] MEDS ORDERED: ALUMINUM/MAGNESIUM/SIMETH (MAALOX MAX) 30 ML UDC PO PRN (01:00)
[2017-10-12] MEDS ORDERED: METOPROLOL TARTRATE 25 MG TAB PO STA (03:26)
[2017-10-12] MEDS ORDERED: FUROSEMIDE INJ 40 MG in SYRINGE 0 ML IV ONE (03:45)
[2017-10-12] MEDS ORDERED: IV FLUIDS COMPLETED PRN (06:15)
--- NOTE | 2017-10-12 06:46 | DIAGNOSTIC IMAGING REPORT ---
CT ANGIOGRAM OF THE CHEST CLINICAL HISTORY: Atypical chest pain and shortness of breath COMPARISON STUDY: Chest x-ray dated 10/11/2017, CT scan dated 05/09/2014 TECHNIQUE: Following the IV administration of 109 mL of Optiray-320, CT angiogram of the thorax was performed from the thoracic inlet to the lung bases utilizing the pulmonary embolus protocol. Images are reviewed in the axial, sagittal, and coronal planes. IV contrast was administered without complication. MIP imaging was performed. A dose lowering technique was utilized adhering to the principles of ALARA. CT DOSE: 661.86 mGy.cm FINDINGS: Mediastinal lymph nodes are the upper limits of normal in size. There was no evidence of thoracic aortic dilatation. There were no pulmonary artery filling defects to indicate acute pulmonary embolism. There are moderate bilateral pleural effusions. There are multifocal nodular airspace opacities, statistically secondary to a multifocal pneumonia. Clinical and radiographic follow-up is recommended. The heart is mildly enlarged. There is a small pericardial effusion. There is hepatic steatosis. There is diffuse irregularity of the trabecular markings of the bone. An infiltrative marrow process such as multiple myeloma must be considered. Clinical correlation is advocated. IMPRESSION: 1. No CT evidence of acute pulmonary embolism 2. Multifocal nodular airspace opacities, likely secondary to pneumonia. Clinical and radiographic follow-up is recommended 3. Diffuse irregularity of the trabecular markings of the bone. An infiltrative marrow process such as multiple myeloma must be considered 4. Hepatic steatosis 5. Moderate bilateral pleural effusions Electronically signed by: Tomi Parikh M.D. 10/12/2017 6:45 AM Dictated Date/Time: 10/12/2017 6:41 AM
[2017-10-12] MEDS: ESCITALOPRAM OXALATE 10 MG TAB PO SCH (08:23)
[2017-10-12] MEDS: ASPIRIN 81 MG ECTAB PO SCH (08:24)
[2017-10-12] MEDS: LISINOPRIL 40 MG TAB PO SCH (08:24)
[2017-10-12] MEDS ORDERED: METOPROLOL TARTRATE 25 MG TAB PO SCH (09:00)
--- NOTE | 2017-10-12 10:32 | Cardiology Consultation ---
Cardiology Consultation Date of Consultation: Oct 12, 2017. Requesting Physician: Sharifa Reason for Consultation: CHF Pt evaluation today including: conversation w/ patient, physical exam, chart review, lab review, review of studies, review of inpatient medication list, conversation w/ attending History of Present Illness Patient is a 47-year-old gentleman with a history of multiple myeloma and severe left ventricular hypertrophy who was recently admitted to [facility] for symptoms of chest discomfort, dyspnea and atrial fibrillation. He began to feel poorly approximately 2 days ago. He started notice some worsening dyspnea on exertion. He had some difficulty ascending stairs at work. This was associated with a sense of chest pressure and chest heaviness. The symptoms progressed and he eventually had severe symptoms at rest. This involve primarily dyspnea. He had an element of orthopnea. He has not noticed any swelling of lower extremities. He keeps track his weight but not routinely. He was not aware of any rapid heartbeats but does occasionally feel some irregularity in his heartbeat. He did not have any dizziness or lightheadedness. Past Medical/Surgical History Multiple myeloma Hypertension Atrial fibrillation Hyperlipidemia Sleep apnea Past surgical history Vasectomy Family History Not known due to adoption No premature coronary disease Social History Smoking Status: Never Smoker History of Alcohol Use: No Review of Systems No recent constitutional symptoms such as fevers or chills. Some nonproductive cough All Other Systems: Reviewed and Negative Allergies Coded Allergies: No Known Allergies (Unverified , 10/11/17) Medications Current Inpatient Medications Medications (Trade) Dose Ordered Sig/Garcia Route Start Time Stop Time Status Last Admin Dose Admin Ioversol (Optiray 320) 100 ml UD PRN IV 10/12/17 00:00 10/16/17 00:00 Escitalopram Oxalate (Lexapro Tab) 10 mg DAILY PO 10/12/17 09:00 11/11/17 08:59 10/12/17 08:23 10 MG Lisinopril (Zestril Tab) 40 mg DAILY PO 10/12/17 09:00 11/11/17 08:59 10/12/17 08:24 40 MG Metoprolol Tartrate (Lopressor Tab) 12.5 mg BID PO 10/12/17 09:00 11/11/17 08:59 10/12/17 08:24 12.5 MG Pantoprazole Sodium (Protonix Tab) 40 mg DAILY PRN PO 10/12/17 00:15 11/11/17 00:14 Warfarin Sodium (Coumadin Tab) 5 mg DAILY@1600 PO 10/12/17 16:00 11/11/17 15:59 Miscellaneous Information (Order Awaiting Action) 1 ea QS N/A 10/12/17 06:30 11/11/17 06:29 Acetaminophen (Tylenol Tab) 650 mg Q4H PRN PO 10/12/17 01:00 11/11/17 00:59 Al Hydrox/Mg Hydrox/Simethicone (Maalox Max Susp) 15 ml Q4H PRN PO 10/12/17 01:00 11/11/17 00:59 Magnesium Hydroxide (Milk Of Magnesia Susp) 30 ml Q12H PRN PO 10/12/17 01:00 11/11/17 00:59 Zolpidem Tartrate (Ambien Tab) 5 mg HSZ PRN PO 10/12/17 01:00 11/11/17 00:59 Ondansetron HCl (Zofran Inj) 4 mg Q6H PRN IV 10/12/17 01:00 11/11/17 00:59 Aspirin (Ecotrin Tab) 81 mg QAM PO 10/12/17 09:00 11/11/17 08:59 10/12/17 08:24 81 MG Polyethylene (Miralax Powder Packet) 17 gm DAILY PRN PO 10/12/17 01:00 11/11/17 00:59 Miscellaneous (Iv Fluids Completed) 1 ea PRN PRN N/A 10/12/17 06:15 10/12/18 06:14 Physical Exam Vital Signs Past 12 Hours Date Time Temp Pulse Resp B/P (MAP) Pulse Ox O2 Delivery O2 Flow Rate FiO2 10/12/17 08:21 36.8 65 22 119/51 (73) 95 Room Air 10/12/17 04:00 75 24 137/67 (90) 94 Room Air 10/12/17 04:00 93 Room Air 10/12/17 03:22 151 20 117/79 (92) 94 Room Air 10/12/17 03:14 151 20 111/72 (85) 94 Room Air 10/12/17 01:32 36.7 71 24 113/59 97 10/12/17 01:32 36.7 71 24 113/59 (77) 97 Room Air 10/12/17 01:30 71 23 145/66 97 10/12/17 01:05 78 18 97 10/12/17 00:14 120/54 10/11/17 23:05 83 27 97 10/11/17 23:00 78 25 94 10/11/17 22:55 74 36 116/62 95 Room Air The patient is alert and oriented. Mood and affect appeared normal. He answered all questions appropriately. HEENT: Pupils are equal and reactive to light and accommodation. Extraocular movements are intact. The sclerae are anicteric. Neuro: Cranial nerves intact Neck: Patient's neck is supple. He has palpable carotid pulses bilaterally without bruits on auscultation. There is no evidence of jugular venous distention. The thyroid is not enlarged. Lungs: Crackles at the bases bilaterally. He has good air movement without use of accessory muscles. No rales wheezes or rhonchi. Cardiac: Heart demonstrates a regular rate and rhythm. Normal S1 and S2. No murmurs on examination. Pulses: The patient has palpable radial pulses bilaterally that are equal in intensity Extremities: There was no evidence of hypoperfusion. There is no cyanosis or clubbing. There is no edema. Skin: I did not appreciate any rashes on examination today. Data Laboratory Results: Last 24 Hours Test 10/11/17 21:40 10/11/17 21:57 10/12/17 04:02 10/12/17 09:41 White Blood Count 4.01 K/uL Red Blood Count 3.65 M/uL Hemoglobin 12.9 g/dL Hematocrit 36.5 % Mean Corpuscular Volume 100.0 fL Mean Corpuscular Hemoglobin 35.3 pg Mean Corpuscular Hemoglobin Concent 35.3 g/dl Platelet Count 119 K/uL Mean Platelet Volume 10.1 fL Neutrophils (%) (Auto) 44.6 % Lymphocytes (%) (Auto) 12.0 % Monocytes (%) (Auto) 16.2 % Eosinophils (%) (Auto) 25.7 % Basophils (%) (Auto) 1.0 % Neutrophils # (Auto) 1.79 K/uL Lymphocytes # (Auto) 0.48 K/uL Monocytes # (Auto) 0.65 K/uL Eosinophils # (Auto) 1.03 K/uL Basophils # (Auto) 0.04 K/uL RDW Standard Deviation 53.9 fL RDW Coefficient of Variation 15.1 % Immature Granulocyte % (Auto) 0.5 % Immature Granulocyte # (Auto) 0.02 K/uL Prothrombin Time 22.5 SECONDS Prothromb Time International Ratio 2.2 Activated Partial Thromboplast Time 39.4 SECONDS Partial Thromboplastin Ratio 1.5 D-Dimer 3910 ug/L FEU Sodium Level 136 mmol/L Potassium Level 3.8 mmol/L Chloride Level 106 mmol/L Carbon Dioxide Level 23 mmol/L Anion Gap 8.0 mmol/L Blood Urea Nitrogen 18 mg/dl Creatinine 1.36 mg/dl Est Creatinine Clear Calc Drug Dose 82.0 ml/min Estimated GFR () 71.3 Estimated GFR (Non- 61.5 BUN/Creatinine Ratio 13.5 Random Glucose 202 mg/dl Calcium Level 8.4 mg/dl Total Bilirubin 0.4 mg/dl Direct Bilirubin 0.1 mg/dl Aspartate Amino Transf (AST/SGOT) 34 U/L Alanine Aminotransferase (ALT/SGPT) 77 U/L Alkaline Phosphatase 69 U/L Troponin I 0.071 ng/ml 0.061 ng/ml Pro-B-Type Natriuretic Peptide 2601 pg/ml Total Protein 5.6 gm/dl Albumin 2.8 gm/dl Lipase 424 U/L Venous Blood pH 7.35 Venous Blood Partial Pressure CO2 49 mmHg Venous Blood Partial Pressure O2 23 mmHg Venous Blood HCO3 26 mmol/L Venous Blood Oxygen Saturation < 60.0 % Venous Blood Base Excess 0.2 mEq/L Imaging: Single-view chest x-ray demonstrated some pulmonary vascular congestion. CT PE protocol did not demonstrate any evidence of pulmonary embolus. There were bilateral pleural effusions. There were infiltrates concerning for an infectious process EKG: Several EKGs were obtained 1 which demonstrated what appears to be in atrial flutter. 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 Echocardiogram obtained September 13, 2017 demonstrated severe left ventricular hypertrophy with preserved LV systolic function. Stage II diastolic dysfunction. Normal biatrial sizes Assessment & Plan 1. Acute decompensated diastolic heart failure: I believe the patient's symptoms and clinical presentation are consistent with pulmonary vascular congestion. This likely due to decompensated diastolic heart failure. He is known to have preserved LV systolic function but his severe LVH puts him at increased risk for decompensation due to high heart rates or high blood pressures. He is noted to have periods of atrial arrhythmia that may have contributed in this respect. He does take some steroids as well and has been slowly gaining weight. Some of this may have been increased fluid. He seemed to respond well to diuresis last night is symptoms have improved. He still has an element of pulmonary vascular congestion on exam and will require additional diuresis. His renal function electrolytes appear to be stable. He may require a dose of oral diuretic on an outpatient basis when it is time for discharge. He was started on beta-blockade at the last admission. This is being titrated slowly due to resting bradycardia. 2. Atrial fibrillation and flutter: Patient did appear to have an episode of atrial flutter at the time of admission. During his last hospitalization and over the course of last evening he did have atrial fibrillation as well. This is felt to be related to both his severe LVH as well as history of obstructive sleep apnea. He is generally not aware of the palpitations and does not appear to acutely decompensate. However, this may be contributing to worsening of his diastolic function. He also has very high heart rates which are poorly controlled on his current dose of metoprolol. I discussed several options for treatment with the patient this morning. I think the 1st option would be increasing his metoprolol. His heart rates in the hospital appear to be adequate for higher doses of metoprolol. Could also initiate antiarrhythmic therapy. Based on his known cardiomyopathy and bradycardia he would be a reasonable candidate for dofetilide or possibly amiodarone. Dronedarone would also seem to be an option. Another option would be referral for catheter based therapy. Given the multiple arrhythmias identified on telemetry he would likely require more complete ablation which would need to be performed outside of our institution. He will consider these options throughout the course of the day. Will continue to monitor his clinical course and increase his beta- teto as tolerated. He will continue on systemic anticoagulation indefinitely. 3. Elevated troponin: Patient does have very mildly elevated cardiac biomarkers. These are actually down from his last hospitalization. He does have symptoms of chest discomfort which are exertional in nature. However, this was in the setting of known pulmonary vascular congestion. During his last hospitalization he did undergo cardiac perfusion imaging which did not identify any areas of significant reversibility. He did have a small area which was felt to be more consistent with attenuation artifact. He did not have any additional chest pains today while ambulating around his room. I think once he is adequately diuresed in his pulmonary status improves we can ambulate him around the rios and decide if additional evaluation is warranted with recurrence symptoms. 4. Left ventricular hypertrophy: This is of unclear etiology. Had a discussion with his oncologist at the last admission regarding the possibility that this is amyloid cardiomyopathy. They felt that this was unlikely. There is not appear to be any specific treatment currently other than adequate control of his blood pressure and use of beta-blockers.
[2017-10-12] MEDS: METOPROLOL TARTRATE 25 MG TAB PO SCH ×3 (11:56→23:40)
[2017-10-12] MEDS ORDERED: FUROSEMIDE INJ 40 MG in SYRINGE 0 ML IV SCH (17:00)
--- NOTE | 2017-10-12 17:06 | Oncology Consultation ---
Oncology/Heme Consultation Date of Consultation: Oct 12, 2017. Attending Physician: Santiago Us MD Reason for Consultation: Multiple myeloma Supraventricular tachycardia Heart failure History of Present Illness Mr. Ochoa is a 47 year old gentleman with lambda light chain myeloma. He was initially diagnosed in 2013 after presenting with innumerable osteolytic bone lesions. He had a partial response to Velcade, Revlimid, and dexamethasone and then, on 01/23/15, he underwent autologous SCT with melphalan conditioning. He did well in the post-transplant period and was started on maintenance Revlimid. His light chains started to rise again in December, and peaked in May. After a brief, ineffective trial of reinitiating steroids, his Revlimid was switched to Pomalidomide in July. Earlier this month, he was admitted for new-onset AFib with RVR, during which admission he was found to have severe concentric LVH with grade 2 diastolic dysfunction. He had no signs of ischemia and a nuclear stress test was negative. He was discharged 09/15. He presented to the ER yesterday with exertional dyspnea and chest heaviness. He was clinically volume overloaded and had pulmonary vascular congestion and cardiomegaly on x- ray. He was seen by Dr. Johnson earlier today who felt this was likely related to acute decompensation of his diastolic heart failure, likely related to tachycardia from his AFib. He denies any pain today and is feeling much better. Past Medical/Surgical History Medical Problems: (1) Elevated troponin Status: Acute (2) Tachy-jasper syndrome Status: Acute Family History Not known due to adoption Social History Smoking Status: Never Smoker Smokeless Tobacco Use: Yes Drug Use: none Marital Status: Occupation Status: employed Allergies Coded Allergies: No Known Allergies (Unverified , 10/11/17) Home Medications Scheduled Aspirin (Aspir-81), 81 MG PO DAILY Dexamethasone (Decadron), 20 MG PO WK Escitalopram (Lexapro), 10 MG PO DAILY Lisinopril (Lisinopril), 40 MG PO DAILY Metoprolol Tartrate (Lopressor) (Lopressor), 12.5 MG PO BID Pomalidomide (Pomalyst), 4 MG PO DAILY Warfarin Sod (Jantoven), 2.5 MG PO [id number] Warfarin Sod (Jantoven), 5 MG PO WK Scheduled PRN Pantoprazole (Pantoprazole Sodium), 40 MG PO DAILY PRN for Indigestion Current Inpatient Medications Current Inpatient Medications Medications (Trade) Dose Ordered Sig/Garcia Route Start Time Stop Time Status Last Admin Dose Admin Ioversol (Optiray 320) 100 ml UD PRN IV 10/12/17 00:00 10/16/17 00:00 Escitalopram Oxalate (Lexapro Tab) 10 mg DAILY PO 10/12/17 09:00 11/11/17 08:59 10/12/17 08:23 10 MG Lisinopril (Zestril Tab) 40 mg DAILY PO 10/12/17 09:00 11/11/17 08:59 10/12/17 08:24 40 MG Pantoprazole Sodium (Protonix Tab) 40 mg DAILY PRN PO 10/12/17 00:15 11/11/17 00:14 Warfarin Sodium (Coumadin Tab) 5 mg DAILY@1600 PO 10/12/17 16:00 11/11/17 15:59 Miscellaneous Information (Order Awaiting Action) 1 ea QS N/A 10/12/17 06:30 11/11/17 06:29 Acetaminophen (Tylenol Tab) 650 mg Q4H PRN PO 10/12/17 01:00 11/11/17 00:59 Al Hydrox/Mg Hydrox/Simethicone (Maalox Max Susp) 15 ml Q4H PRN PO 10/12/17 01:00 11/11/17 00:59 Magnesium Hydroxide (Milk Of Magnesia Susp) 30 ml Q12H PRN PO 10/12/17 01:00 11/11/17 00:59 Zolpidem Tartrate (Ambien Tab) 5 mg HSZ PRN PO 10/12/17 01:00 11/11/17 00:59 Ondansetron HCl (Zofran Inj) 4 mg Q6H PRN IV 10/12/17 01:00 11/11/17 00:59 Aspirin (Ecotrin Tab) 81 mg QAM PO 10/12/17 09:00 11/11/17 08:59 10/12/17 08:24 81 MG Polyethylene (Miralax Powder Packet) 17 gm DAILY PRN PO 10/12/17 01:00 11/11/17 00:59 Miscellaneous (Iv Fluids Completed) 1 ea PRN PRN N/A 10/12/17 06:15 10/12/18 06:14 Metoprolol Tartrate (Lopressor Tab) 12.5 mg Q6 PO 10/12/17 12:00 11/11/17 08:59 10/12/17 11:56 12.5 MG Furosemide 40 mg/ Syringe 4 ml @ 4 mls/min BID17 IV 10/12/17 17:00 11/11/17 16:59 Review of Systems Constitutional: No fever, No chills Respiratory: + dyspnea on exertion, No cough Cardiovascular: + chest pain ("heaviness" - now resolved) Abdomen: No pain, No nausea Musculoskeletal: No joint pain, No muscle pain Hematologic / Lymphatic: No abnormal bleeding/bruising, No night sweats Integumentary: No rash Physical Exam Date Time Temp Pulse Resp B/P (MAP) Pulse Ox O2 Delivery O2 Flow Rate FiO2 10/12/17 16:13 36.9 67 22 108/62 (77) 93 Room Air 10/12/17 16:00 Room Air 10/12/17 12:00 Room Air 10/12/17 11:56 36.8 63 24 120/65 (83) 96 Room Air 10/12/17 08:21 36.8 65 22 119/51 (73) 95 Room Air 10/12/17 08:00 Room Air 10/12/17 04:00 75 24 137/67 (90) 94 Room Air 10/12/17 04:00 93 Room Air 10/12/17 03:22 151 20 117/79 (92) 94 Room Air 10/12/17 03:14 151 20 111/72 (85) 94 Room Air 10/12/17 01:32 36.7 71 24 113/59 97 10/12/17 01:32 36.7 71 24 113/59 (77) 97 Room Air 10/12/17 01:30 71 23 145/66 97 10/12/17 01:05 78 18 97 10/12/17 00:14 120/54 10/11/17 23:05 83 27 97 10/11/17 23:00 78 25 94 10/11/17 22:55 74 36 116/62 95 Room Air 10/11/17 22:06 72 10/11/17 22:03 163 10/11/17 21:37 97 2.0 10/11/17 21:28 96 Room Air 10/11/17 21:27 79 24 118/54 97 Room Air 10/11/17 21:24 94 Room Air 10/11/17 21:21 76 10/11/17 20:48 36.8 76 18 107/64 96 Room Air General Appearance: WD/WN, no apparent distress ENT: pharynx normal (mucous membranes moist) Respiratory/Chest: lungs clear, + decreased breath sounds (at the bases) Cardiovascular: + irregularly irregular Abdomen/GI: non tender, soft Extremities/Musculoskelatal: no pedal edema Neurologic/Psych: alert, oriented x 3 Skin: no rash Laboratory Results Last 24 Hours Test 10/11/17 21:40 10/11/17 21:57 10/12/17 04:02 10/12/17 09:41 White Blood Count 4.01 K/uL Red Blood Count 3.65 M/uL Hemoglobin 12.9 g/dL Hematocrit 36.5 % Mean Corpuscular Volume 100.0 fL Mean Corpuscular Hemoglobin 35.3 pg Mean Corpuscular Hemoglobin Concent 35.3 g/dl Platelet Count 119 K/uL Mean Platelet Volume 10.1 fL Neutrophils (%) (Auto) 44.6 % Lymphocytes (%) (Auto) 12.0 % Monocytes (%) (Auto) 16.2 % Eosinophils (%) (Auto) 25.7 % Basophils (%) (Auto) 1.0 % Neutrophils # (Auto) 1.79 K/uL Lymphocytes # (Auto) 0.48 K/uL Monocytes # (Auto) 0.65 K/uL Eosinophils # (Auto) 1.03 K/uL Basophils # (Auto) 0.04 K/uL RDW Standard Deviation 53.9 fL RDW Coefficient of Variation 15.1 % Immature Granulocyte % (Auto) 0.5 % Immature Granulocyte # (Auto) 0.02 K/uL Prothrombin Time 22.5 SECONDS Prothromb Time International Ratio 2.2 Activated Partial Thromboplast Time 39.4 SECONDS Partial Thromboplastin Ratio 1.5 D-Dimer 3910 ug/L FEU Sodium Level 136 mmol/L Potassium Level 3.8 mmol/L Chloride Level 106 mmol/L Carbon Dioxide Level 23 mmol/L Anion Gap 8.0 mmol/L Blood Urea Nitrogen 18 mg/dl Creatinine 1.36 mg/dl Est Creatinine Clear Calc Drug Dose 82.0 ml/min Estimated GFR () 71.3 Estimated GFR (Non- 61.5 BUN/Creatinine Ratio 13.5 Random Glucose 202 mg/dl Calcium Level 8.4 mg/dl Total Bilirubin 0.4 mg/dl Direct Bilirubin 0.1 mg/dl Aspartate Amino Transf (AST/SGOT) 34 U/L Alanine Aminotransferase (ALT/SGPT) 77 U/L Alkaline Phosphatase 69 U/L Troponin I 0.071 ng/ml 0.061 ng/ml 0.057 ng/ml Pro-B-Type Natriuretic Peptide 2601 pg/ml Total Protein 5.6 gm/dl Albumin 2.8 gm/dl Lipase 424 U/L Venous Blood pH 7.35 Venous Blood Partial Pressure CO2 49 mmHg Venous Blood Partial Pressure O2 23 mmHg Venous Blood HCO3 26 mmol/L Venous Blood Oxygen Saturation < 60.0 % Venous Blood Base Excess 0.2 mEq/L Assessment & Plan Mr. Ochoa has a history of lambda light chain multiple myeloma, now in relapse about 20 months following autologous stem cell transplant. He is currently on Pomalidomide and dexamethasone, which he started in July and is generally tolerating well. He has also recently been diagnosed with LVH and diastolic heart failure as well as atrial fibrillation. He presented yesterday with acute decompensated HF likely related to a rapid heart rate. His rate is slower now and he is feeling better. There are reports, though the frequency is not well defined, of pomalidomide exacerbating tachyarrhythmias. It more commonly causes thrombotic complications, which he does not seem to have. He has other reasons to explain his heart failure, but if this pattern continues despite optimal medical management otherwise, we could consider a trial of discontinuation of the Pomalyst. For now, I agree with supportive care as per cardiology.
[2017-10-12] MEDS: WARFARIN SOD 5 MG TAB PO SCH (17:09)
--- NOTE | 2017-10-12 17:31 | Family Medicine Progress Note ---
Progress Note Date of Service Oct 12, 2017. Subjective Pt evaluation today including: conversation w/ patient, physical exam, chart review, conversation w/ territory sales consultant, review of inpatient medication list Pain: mild chest pain with deep inspiration PO Intake: good Voiding: no voiding problems Patient feeling better after diuresis, still has trouble taking in deep breath and feels like it catches him. notes that occasionally he will have palpitations and will then lay down, could these be tachyarrythmias? Urinating well with diuretics and does note that shortness of breath and chest pain have improved Constitutional: No fever, No chills Respiratory: + shortness of breath, No cough, No hemoptysis Cardiovascular: + chest pain, No orthopnea, No edema, No palpitations Abdomen: No pain, No nausea, No vomiting Musculoskeletal: No swelling, No calf pain Male : No dysuria, No hematuria Medications Current Inpatient Medications Medications (Trade) Dose Ordered Sig/Garcia Route Start Time Stop Time Status Last Admin Dose Admin Ioversol (Optiray 320) 100 ml UD PRN IV 10/12/17 00:00 10/16/17 00:00 Escitalopram Oxalate (Lexapro Tab) 10 mg DAILY PO 10/12/17 09:00 11/11/17 08:59 10/12/17 08:23 10 MG Lisinopril (Zestril Tab) 40 mg DAILY PO 10/12/17 09:00 11/11/17 08:59 10/12/17 08:24 40 MG Pantoprazole Sodium (Protonix Tab) 40 mg DAILY PRN PO 10/12/17 00:15 11/11/17 00:14 Warfarin Sodium (Coumadin Tab) 5 mg DAILY@1600 PO 10/12/17 16:00 11/11/17 15:59 10/12/17 17:09 5 MG Miscellaneous Information (Order Awaiting Action) 1 ea QS N/A 10/12/17 06:30 11/11/17 06:29 Acetaminophen (Tylenol Tab) 650 mg Q4H PRN PO 10/12/17 01:00 11/11/17 00:59 Al Hydrox/Mg Hydrox/Simethicone (Maalox Max Susp) 15 ml Q4H PRN PO 10/12/17 01:00 11/11/17 00:59 Magnesium Hydroxide (Milk Of Magnesia Susp) 30 ml Q12H PRN PO 10/12/17 01:00 11/11/17 00:59 Zolpidem Tartrate (Ambien Tab) 5 mg HSZ PRN PO 10/12/17 01:00 11/11/17 00:59 Ondansetron HCl (Zofran Inj) 4 mg Q6H PRN IV 10/12/17 01:00 11/11/17 00:59 Aspirin (Ecotrin Tab) 81 mg QAM PO 10/12/17 09:00 11/11/17 08:59 10/12/17 08:24 81 MG Polyethylene (Miralax Powder Packet) 17 gm DAILY PRN PO 10/12/17 01:00 11/11/17 00:59 Miscellaneous (Iv Fluids Completed) 1 ea PRN PRN N/A 10/12/17 06:15 10/12/18 06:14 Metoprolol Tartrate (Lopressor Tab) 12.5 mg Q6 PO 10/12/17 12:00 11/11/17 08:59 10/12/17 17:10 12.5 MG Furosemide 40 mg/ Syringe 4 ml @ 4 mls/min BID17 IV 10/12/17 17:00 11/11/17 16:59 10/12/17 17:10 4 MLS/MIN Objective Vital Signs Date Time Temp Pulse Resp B/P (MAP) Pulse Ox O2 Delivery O2 Flow Rate FiO2 10/12/17 16:13 36.9 67 22 108/62 (77) 93 Room Air 10/12/17 16:00 Room Air 10/12/17 12:00 Room Air 10/12/17 11:56 36.8 63 24 120/65 (83) 96 Room Air 10/12/17 08:21 36.8 65 22 119/51 (73) 95 Room Air 10/12/17 08:00 Room Air 10/12/17 04:00 75 24 137/67 (90) 94 Room Air 10/12/17 04:00 93 Room Air 10/12/17 03:22 151 20 117/79 (92) 94 Room Air 10/12/17 03:14 151 20 111/72 (85) 94 Room Air 10/12/17 01:32 36.7 71 24 113/59 97 10/12/17 01:32 36.7 71 24 113/59 (77) 97 Room Air 10/12/17 01:30 71 23 145/66 97 10/12/17 01:05 78 18 97 10/12/17 00:14 120/54 10/11/17 23:05 83 27 97 10/11/17 23:00 78 25 94 10/11/17 22:55 74 36 116/62 95 Room Air 10/11/17 22:06 72 10/11/17 22:03 163 10/11/17 21:37 97 2.0 10/11/17 21:28 96 Room Air 10/11/17 21:27 79 24 118/54 97 Room Air 10/11/17 21:24 94 Room Air 10/11/17 21:21 76 10/11/17 20:48 36.8 76 18 107/64 96 Room Air Physical Exam General Appearance: WD/WN, no apparent distress ENT: hearing grossly normal, pharynx normal Neck: supple, no JVD, no carotid bruits, trachea midline Respiratory/Chest: no respiratory distress, no accessory muscle use, + crackles (at the bases bilaterally) Cardiovascular: regular rate, rhythm, no JVD, no murmur Abdomen: normal bowel sounds, non tender, soft Extremities: normal range of motion, non-tender, no calf tenderness Neurologic/Psychiatric: no motor/sensory deficits, normal mood/affect, oriented x 3 Skin: normal color, warm/dry, no rash Laboratory Results Results Past 24 Hours Test 10/11/17 21:40 10/11/17 21:57 10/12/17 04:02 10/12/17 09:41 Range/Units White Blood Count 4.01 4.8-10.8 K/uL Red Blood Count 3.65 4.7-6.1 M/uL Hemoglobin 12.9 14.0-18.0 g/dL Hematocrit 36.5 42-52 % Mean Corpuscular Volume 100.0 80-100 fL Mean Corpuscular Hemoglobin 35.3 25-34 pg Mean Corpuscular Hemoglobin Concent 35.3 32-36 g/dl Platelet Count 119 130-400 K/uL Mean Platelet Volume 10.1 7.4-10.4 fL Neutrophils (%) (Auto) 44.6 % Lymphocytes (%) (Auto) 12.0 % Monocytes (%) (Auto) 16.2 % Eosinophils (%) (Auto) 25.7 % Basophils (%) (Auto) 1.0 % Neutrophils # (Auto) 1.79 1.4-6.5 K/uL Lymphocytes # (Auto) 0.48 1.2-3.4 K/uL Monocytes # (Auto) 0.65 0.11-0.59 K/uL Eosinophils # (Auto) 1.03 0-0.5 K/uL Basophils # (Auto) 0.04 0-0.2 K/uL RDW Standard Deviation 53.9 36.4-46.3 fL RDW Coefficient of Variation 15.1 11.5-14.5 % Immature Granulocyte % (Auto) 0.5 % Immature Granulocyte # (Auto) 0.02 0.00-0.02 K/uL Prothrombin Time 22.5 9.0-12.0 SECONDS Prothromb Time International Ratio 2.2 0.9-1.1 Activated Partial Thromboplast Time 39.4 21.0-31.0 SECONDS Partial Thromboplastin Ratio 1.5 D-Dimer 3910 0-500 ug/L FEU Sodium Level 136 136-145 mmol/L Potassium Level 3.8 3.5-5.1 mmol/L Chloride Level 106 98-107 mmol/L Carbon Dioxide Level 23 21-32 mmol/L Anion Gap 8.0 3-11 mmol/L Blood Urea Nitrogen 18 7-18 mg/dl Creatinine 1.36 0.60-1.40 mg/dl Est Creatinine Clear Calc Drug Dose 82.0 ml/min Estimated GFR () 71.3 Estimated GFR (Non- 61.5 BUN/Creatinine Ratio 13.5 10-20 Random Glucose 202 70-99 mg/dl Calcium Level 8.4 8.5-10.1 mg/dl Total Bilirubin 0.4 0.2-1 mg/dl Direct Bilirubin 0.1 0-0.2 mg/dl Aspartate Amino Transf (AST/SGOT) 34 15-37 U/L Alanine Aminotransferase (ALT/SGPT) 77 12-78 U/L Alkaline Phosphatase 69 45-117 U/L Troponin I 0.071 0.061 0.057 0-0.045 ng/ml Pro-B-Type Natriuretic Peptide 2601 0-450 pg/ml Total Protein 5.6 6.4-8.2 gm/dl Albumin 2.8 3.4-5.0 gm/dl Lipase 424 73-393 U/L Venous Blood pH 7.35 7.36-7.41 Venous Blood Partial Pressure CO2 49 38.0-50.0 mmHg Venous Blood Partial Pressure O2 23 mmHg Venous Blood HCO3 26 mmol/L Venous Blood Oxygen Saturation < 60.0 % Venous Blood Base Excess 0.2 mEq/L Microbiology Results 10/12/17 MRSA DNA Surveillance Screen - Final, Complete Specimen Negative for MRSA by DNA Probe Assessment and Plan 47 y/o M Hx multiple myeloma, grade II diastolic dysfunction, paroxysmal AF, DEBBY , CKD II. Pt presented with progressive exertional SOB and intermittent CP. 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) - CT showed moderate bilateral pleural effusions - patient given 40mg lasix in ED w/ >2L diuresis - Cardiology consulted and suggest 40mg lasix bid - monitor I/O's Atrial Flutter/Atrial Fibrillation - found to be in aflutter on admission - metoprolol increased to 12.5 q6hrs - discussed with cardiology other medications vs surgery vs pacer in order to control rhythm - mild elevation in trop likely secondary to tachyarrythmia - currently anticoagulated with warfarin, INR 2.2 Multiple Myeloma - Oncology consulted - On Pomalidomide through oncology - Had stem cell transplant 20 months ago - question if meds causing cardiac S/E's? - mild pancytopenia Hypertension - continue lisinopril - BP adequately controlled Depression - continue lexapro CKD II - creat is at baseline - we will trend AM DEBBY - will provide a CPAP DVT - warfarin Full Code Continued [facility] stay due to: multiple IV medications needed Discharge planning: uncertain History Resident Physician Supervision Note: I was present with Dr. Monk during the history and exam. I discussed the case with the resident and agree with the findings and plan as documented in the note. Any exceptions or clarifications are listed here. Pt reports improvement in shortness of breath and tightness sensation following diuresis with furosemide, still with intermittent nonproductive cough. Spouse describes episode of coughing which resulted in apparent presyncopal/short syncopal episode without fall. General Appearance: WD/WN, no apparent distress Respiratory: chest non-tender, no respiratory distress, decreased breath sounds (b/l bases) Cardiovascular: normal peripheral pulses, regular rate, rhythm, no murmur, other (trace b/l LE edema) Gastrointestinal: normal bowel sounds, non tender, soft Assessment/Plan 47 y/o male h/o MM, grade II diastolic dysfunction, pAF CKD II presents w/ worsening shortness of breath and chest tightness Diastolic CHF - cardiology consultation - continued diuresis, monitor Atrial dysrhythmia - increased dose of metoprolol, continue AC - discussion w/ cardiology regarding further intervention including antiarrhythmic and ablation v. pacing Multiple Myeloma - oncology consultation - continue pomalidomide and pred and monitor - likely noncontributory to present presentation, monitor CBC Hypertension - continue lisinopril, metoprolol as above Depression - continue lexapro CKD II - at baseline FULL CODE
[2017-10-13] VITALS (15 sets, daily range): BP systolic 90–127; BP diastolic 55–80; PULSE 60–120; TEMP 36.5–37.4; O2SAT 88–96
[2017-10-13] MEDS: METOPROLOL TARTRATE 25 MG TAB PO SCH ×3 (06:11→18:00)
[2017-10-13 06:30] LABS: HEMOGLOBIN 14.1 g/dL (14.0-18.0); MEAN CELL VOLUME 100.8 fL (80-100); MEAN CORPUSCULAR HEMOGLOBIN 35.5 pg (25-34); MEAN CORPUSCULAR HGB CONC 35.3 g/dl (32-36); MEAN PLATELET VOLUME 9.3 fL (7.4-10.4); PLATELET COUNT 113 K/uL (130-400); RED CELL DISTRIBUTION WIDTH CV 15.2 % (11.5-14.5); RED CELL DISTRIBUTION WIDTH SD 55.1 fL (36.4-46.3); WHITE BLOOD COUNT 3.44 K/uL (4.8-10.8)
--- NOTE | 2017-10-13 06:48 | Family Medicine Progress Note ---
Progress Note Date of Service Oct 13, 2017. Subjective Pt evaluation today including: conversation w/ patient, physical exam, chart review, lab review, conversation w/ lactation consultant Pain: none PO Intake: good Voiding: no voiding problems Patient is still feeling short of breath with exertion but does not have any shortness of breath at rest. Had 2 syncopal episodes overnight associated with coughing but not associated with palpitations or chest pain Otherwise feels well Constitutional: No fever, No chills Eyes: No worsening of vision Respiratory: + cough, No dyspnea on exertion, No dyspnea at rest, No hemoptysis Cardiovascular: No chest pain, No orthopnea, No edema, No palpitations Abdomen: No pain, No nausea, No vomiting, No diarrhea Male : No dysuria, No urinary frequency Neurologic: No memory loss, No weakness, No numbness/tingling Heme: No abnormal bleeding/bruising Medications Current Inpatient Medications Medications (Trade) Dose Ordered Sig/Garcia Route Start Time Stop Time Status Last Admin Dose Admin Ioversol (Optiray 320) 100 ml UD PRN IV 10/12/17 00:00 10/16/17 00:00 Lisinopril (Zestril Tab) 40 mg DAILY PO 10/12/17 09:00 11/11/17 08:59 10/13/17 09:02 40 MG Pantoprazole Sodium (Protonix Tab) 40 mg DAILY PRN PO 10/12/17 00:15 11/11/17 00:14 Warfarin Sodium (Coumadin Tab) 5 mg DAILY@1600 PO 10/12/17 16:00 11/11/17 15:59 10/13/17 16:29 5 MG Acetaminophen (Tylenol Tab) 650 mg Q4H PRN PO 10/12/17 01:00 11/11/17 00:59 Al Hydrox/Mg Hydrox/Simethicone (Maalox Max Susp) 15 ml Q4H PRN PO 10/12/17 01:00 11/11/17 00:59 Magnesium Hydroxide (Milk Of Magnesia Susp) 30 ml Q12H PRN PO 10/12/17 01:00 11/11/17 00:59 Zolpidem Tartrate (Ambien Tab) 5 mg HSZ PRN PO 10/12/17 01:00 11/11/17 00:59 Ondansetron HCl (Zofran Inj) 4 mg Q6H PRN IV 10/12/17 01:00 11/11/17 00:59 10/13/17 16:27 4 MG Aspirin (Ecotrin Tab) 81 mg QAM PO 10/12/17 09:00 11/11/17 08:59 10/13/17 08:59 81 MG Polyethylene (Miralax Powder Packet) 17 gm DAILY PRN PO 10/12/17 01:00 11/11/17 00:59 Miscellaneous (Iv Fluids Completed) 1 ea PRN PRN N/A 10/12/17 06:15 10/12/18 06:14 Metoprolol Tartrate (Lopressor Tab) 12.5 mg Q6 PO 10/12/17 12:00 11/11/17 08:59 10/13/17 10:44 12.5 MG Pomalidomide (Pomalyst) 4 mg DAILY PO 10/13/17 09:00 11/12/17 08:59 10/13/17 09:01 4 MG Furosemide 20 mg/ Syringe 2 ml @ 4 mls/min BID IV 10/13/17 09:00 11/12/17 08:59 10/13/17 10:25 4 MLS/MIN Amiodarone HCL/ Dextrose 200 ml @ 33.3 mls/hr Q6H1M IV 10/13/17 12:25 10/13/17 18:25 10/13/17 13:25 33.3 MLS/HR Amiodarone HCL/ Dextrose 200 ml @ 16.7 mls/hr [id number] IV 10/13/17 18:25 11/12/17 18:24 Objective Vital Signs Date Time Temp Pulse Resp B/P (MAP) Pulse Ox O2 Delivery O2 Flow Rate FiO2 10/13/17 15:50 36.9 66 22 94/55 (68) 94 Room Air 10/13/17 13:19 36.6 70 20 96 10/13/17 13:18 36.9 68 18 103/64 (77) 93 Room Air 10/13/17 12:00 Room Air 10/13/17 09:43 93 10/13/17 09:38 37.0 65 16 109/66 (80) 93 Room Air 10/13/17 08:00 Room Air 10/13/17 04:00 Room Air 10/13/17 03:50 36.5 64 24 111/68 (82) 95 Room Air 10/13/17 03:20 36.9 65 18 116/69 (85) 92 Room Air 10/13/17 00:00 Room Air 10/12/17 23:38 69 107/68 (81) 10/12/17 23:05 36.5 66 18 81/45 (57) 92 Room Air 10/12/17 19:15 Room Air Physical Exam General Appearance: WD/WN, no apparent distress ENT: hearing grossly normal, pharynx normal Neck: supple, no JVD, no carotid bruits, trachea midline Respiratory/Chest: chest non-tender, no accessory muscle use, + decreased breath sounds (on the RLL) Cardiovascular: regular rate, rhythm, no edema, no murmur Abdomen: normal bowel sounds, non tender, soft Extremities: non-tender, no pedal edema, no calf tenderness, normal capillary refill Neurologic/Psychiatric: alert, normal mood/affect, oriented x 3 Skin: normal color, warm/dry, no rash Laboratory Results Results Past 24 Hours Test 10/13/17 06:13 10/13/17 08:17 10/13/17 11:06 Range/Units White Blood Count 3.44 4.8-10.8 K/uL Red Blood Count 3.97 4.7-6.1 M/uL Hemoglobin 14.1 14.0-18.0 g/dL Hematocrit 40.0 42-52 % Mean Corpuscular Volume 100.8 80-100 fL Mean Corpuscular Hemoglobin 35.5 25-34 pg Mean Corpuscular Hemoglobin Concent 35.3 32-36 g/dl RDW Standard Deviation 55.1 36.4-46.3 fL RDW Coefficient of Variation 15.2 11.5-14.5 % Platelet Count 113 130-400 K/uL Mean Platelet Volume 9.3 7.4-10.4 fL Sodium Level 139 136-145 mmol/L Potassium Level 3.8 3.5-5.1 mmol/L Chloride Level 105 98-107 mmol/L Carbon Dioxide Level 30 21-32 mmol/L Anion Gap 4.0 3-11 mmol/L Blood Urea Nitrogen 18 7-18 mg/dl Creatinine 1.48 0.60-1.40 mg/dl Est Creatinine Clear Calc Drug Dose 73.2 ml/min Estimated GFR () 64.4 Estimated GFR (Non- 55.5 BUN/Creatinine Ratio 12.4 10-20 Random Glucose 139 70-99 mg/dl Calcium Level 8.3 8.5-10.1 mg/dl Total Bilirubin 0.7 0.2-1 mg/dl Aspartate Amino Transf (AST/SGOT) 14 15-37 U/L Alanine Aminotransferase (ALT/SGPT) 73 12-78 U/L Alkaline Phosphatase 74 45-117 U/L Troponin I 0.038 0.028 0-0.045 ng/ml Total Protein 6.0 6.4-8.2 gm/dl Albumin 2.9 3.4-5.0 gm/dl Globulin 3.1 2.5-4.0 gm/dl Albumin/Globulin Ratio 0.9 0.9-2 Lipase 234 73-393 U/L Prothrombin Time 21.9 9.0-12.0 SECONDS Prothromb Time International Ratio 2.1 0.9-1.1 Assessment and Plan 47 y/o M Hx multiple myeloma, grade II diastolic dysfunction, paroxysmal AF, DEBBY , CKD II. Pt presented with progressive exertional SOB and intermittent CP. 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) - CT showed moderate bilateral pleural effusions - patient given 40mg lasix in ED w/ >2L diuresis - Cardiology consulted and suggest 40mg lasix bid----> decreased to 20mg IV bid due to adequate diuresis and bump in creatinine - monitor I/O's Atrial Flutter/Atrial Fibrillation - found to be in aflutter on admission - metoprolol to 12.5 q6hrs - amiodarone drip started by cardiology in order to prevent any further arrythmias - plan for outpatient ablation - troponin downtrending - currently anticoagulated with warfarin, INR 2.1 Syncope - not associated with arrythmia episodes, tends to be associated with coughing - vagal episodes vs hypoxia from coughing? Multiple Myeloma - Oncology consulted - On Pomalidomide through oncology - Had stem cell transplant 20 months ago - question if meds causing cardiac S/E's? - mild pancytopenia Hypertension - continue lisinopril - BP adequately controlled Depression - continue lexapro ARSENIO on CKD II - creatinine with small bump to 1.48, monitor closely - we will trend AM DEBBY - will provide a CPAP DVT - warfarin Full Code Continued [facility] stay due to: multiple IV medications needed Discharge planning: home History Resident Physician Supervision Note: I was present with Dr. Monk during the history and exam. I discussed the case with the resident and agree with the findings and plan as documented in the note. Any exceptions or clarifications are listed here. Pt evaluated in AM hours with stable shortness of breath that is mildly improved from yesterday. No further syncopal episodes Re-evaluated at 1845 for new onset shortness of breath, diaphoresis, neck and shoulder pain and during evaluation had episode of tussive syncope. No post- syncopal confusion, approx time of LOC ~2 sec. Still feeling SOB and anxious. General Appearance: mild distress, obese Eye Exam: bilateral eye PERRL, bilateral eye EOMI Neck: non-tender, full range of motion, supple Respiratory: chest non-tender, no respiratory distress, decreased breath sounds (b/l bases), rales (mild b/l bases) Cardiovascular: normal peripheral pulses, regular rate, rhythm, no murmur, other (1+ pitting of the b/l LE) Gastrointestinal: normal bowel sounds, non tender, soft, no organomegaly Neurologic/Psychiatric: sample maker original II-XII nml as tested, no motor/sensory deficits, alert, normal mood/affect, oriented x 3 Assessment/Plan 47 y/o male h/o MM, grade II diastolic dysfunction, pAF CKD II presents w/ worsening shortness of breath and chest tightness Syncopal episode w/ diaphoresis - repeat labs incl' troponin, repeat EKG, repeat CXR, BCx drawn w/ broad spectrum abx if labs or CXR indicate presence of infxn Shortness of breath in the setting of dCHF w/ tussive syncope - Xopenex, CXR. Hold diuresis for the night. F/U Cards in AM. Atrial dysrhythmias - continue metoprolol, IV amiodarone, warfarin Multiple Myeloma - oncology consultation - continue pomalidomide and pred and monitor - likely noncontributory to present presentation, monitor CBC Hypertension - continue lisinopril, metoprolol as above Depression - continue lexapro CKD II - at baseline FULL CODE
[2017-10-13 07:03] LABS: ALBUMIN 2.9 gm/dl (3.4-5.0); CALCIUM 8.3 mg/dl (8.5-10.1); CREATININE 1.48 mg/dl (0.60-1.40); POTASSIUM 3.8 mmol/L (3.5-5.1)
[2017-10-13] MEDS: ASPIRIN 81 MG ECTAB PO SCH (08:59)
[2017-10-13] MEDS ORDERED: FUROSEMIDE INJ 20 MG in SYRINGE 0 ML IV SCH (09:00)
[2017-10-13] MEDS: ESCITALOPRAM OXALATE 10 MG TAB PO SCH (09:00)
[2017-10-13] MEDS: POMALIDOMIDE 4 MG PO SCH (09:01)
[2017-10-13] MEDS: LISINOPRIL 40 MG TAB PO SCH (09:02)
[2017-10-13 09:03] LABS: INR 2.1 (0.9-1.1)
[2017-10-13] MEDS ORDERED: AMIODARONE IV BOLUS / DRIP IV STA (12:04)
--- NOTE | 2017-10-13 12:10 | Cardiology Follow-Up ---
Subjective Date of Service: Oct 13, 2017. Pt evaluation today including: conversation w/ patient, conversation w/ family , physical exam, chart review, lab review, review of studies, review of inpatient medication list, conversation w/ attending History of Present Illness This morning patient continues to complain of dyspnea on exertion. At rest he could feels quite comfortable. Even lying flat does not seem to cause increased breathing trouble. He also has a lot of coughing. His fact he has had 2 episodes of syncope with coughing during his hospitalization. He is generally not aware of any palpitations or racing heartbeats. Social History Smoking Status: Never Smoker History of Alcohol Use: No Review of Systems Respiratory: + shortness of breath, No cough, No hemoptysis Cardiac: + chest pain, No orthopnea, No edema, No palpitations No recent constitutional symptoms such as fevers or chills. Some nonproductive cough Objective Vital Signs Past 12 Hours Date Time Temp Pulse Resp B/P (MAP) Pulse Ox O2 Delivery O2 Flow Rate FiO2 10/13/17 12:00 Room Air 10/13/17 09:43 93 10/13/17 09:38 37.0 65 16 109/66 (80) 93 Room Air 10/13/17 08:00 Room Air 10/13/17 04:00 Room Air 10/13/17 03:50 36.5 64 24 111/68 (82) 95 Room Air 10/13/17 03:20 36.9 65 18 116/69 (85) 92 Room Air Last Recorded Weight-Kilograms: 103.600 Physical Exam The patient is alert and oriented. Mood and affect appeared normal. He answered all questions appropriately. HEENT: Pupils are equal and reactive to light and accommodation. Extraocular movements are intact. The sclerae are anicteric. Neuro: Cranial nerves intact Neck: Patient's neck is supple. He has palpable carotid pulses bilaterally without bruits on auscultation. There is no evidence of jugular venous distention. The thyroid is not enlarged. Lungs: Lungs are clear today Cardiac: Heart demonstrates a regular rate and rhythm. Normal S1 and S2. No murmurs on examination. Pulses: The patient has palpable radial pulses bilaterally that are equal in intensity Extremities: There was no evidence of hypoperfusion. There is no cyanosis or clubbing. There is no edema. Skin: I did not appreciate any rashes on examination today. Data Laboratory Results: Last 24 Hours Test 10/13/17 06:13 10/13/17 08:17 10/13/17 11:06 White Blood Count 3.44 K/uL Red Blood Count 3.97 M/uL Hemoglobin 14.1 g/dL Hematocrit 40.0 % Mean Corpuscular Volume 100.8 fL Mean Corpuscular Hemoglobin 35.5 pg Mean Corpuscular Hemoglobin Concent 35.3 g/dl RDW Standard Deviation 55.1 fL RDW Coefficient of Variation 15.2 % Platelet Count 113 K/uL Mean Platelet Volume 9.3 fL Sodium Level 139 mmol/L Potassium Level 3.8 mmol/L Chloride Level 105 mmol/L Carbon Dioxide Level 30 mmol/L Anion Gap 4.0 mmol/L Blood Urea Nitrogen 18 mg/dl Creatinine 1.48 mg/dl Est Creatinine Clear Calc Drug Dose 73.2 ml/min Estimated GFR () 64.4 Estimated GFR (Non- 55.5 BUN/Creatinine Ratio 12.4 Random Glucose 139 mg/dl Calcium Level 8.3 mg/dl Total Bilirubin 0.7 mg/dl Aspartate Amino Transf (AST/SGOT) 14 U/L Alanine Aminotransferase (ALT/SGPT) 73 U/L Alkaline Phosphatase 74 U/L Troponin I 0.038 ng/ml 0.028 ng/ml Total Protein 6.0 gm/dl Albumin 2.9 gm/dl Globulin 3.1 gm/dl Albumin/Globulin Ratio 0.9 Lipase 234 U/L Prothrombin Time 21.9 SECONDS Prothromb Time International Ratio 2.1 Telemetry reviewed: Intermittent episodes of atrial fibrillation and flutter. No significant pauses I or heart block Assessment and Plan 1. Acute decompensated diastolic heart failure: Initially he seemed to be much better. He has affected a good diuresis. He we must be cautious that he is not dehydrated is at may compromises diastolic filling. I think reducing his diuretic dose at this point seems appropriate. 2. Atrial fibrillation and flutter: He continues to have fairly frequent episodes of flutter and fibrillation. I do believe he has 2 distinct arrhythmias. The rates are high despite increased dose of metoprolol. I had an extensive discussion with the patient and his regarding treatment options. At this point we will pursue outpatient evaluation for both flutter and fib ablation. In the interim I will initiate amiodarone in the hopes that this will temporize his arrhythmia is so that he could undergo the procedure in a few weeks. He will continue on anticoagulation indefinitely. 3. Elevated troponin: Improved 4. Left ventricular hypertrophy: This is of unclear etiology. Had a discussion with his oncologist at the last admission regarding the possibility that this is amyloid cardiomyopathy. They felt that this was unlikely. There is not appear to be any specific treatment currently other than adequate control of his blood pressure and use of beta-blockers. 5. Syncope: This appears to be related to his coughing. Possibly transient hypoxia. Certainly no arrhythmia associated with these episodes. No significant pauses or evidence of a cardioinhibitory effect. 6. Dyspnea: Patient's dyspnea may be multifactorial. He has had adequate diuresis his lung exam is certainly improved. He does not have orthopnea but continues to have symptoms of dyspnea with exertion. He also has a lot of coughing. He may in fact have a bronchitis or primary pulmonary process as well.
[2017-10-13] MEDS ORDERED: AMIODARONE / D5W 100 ML IV SCH (12:15)
[2017-10-13] MEDS ORDERED: AMIODARONE / D5W 200 ML IV SCH (12:25)
[2017-10-13] MEDS: ONDANSETRON INJ 2 MG/ML 2 ML VIAL IV PRN (16:27)
[2017-10-13] MEDS: WARFARIN SOD 5 MG TAB PO SCH (16:29)
[2017-10-13] MEDS ORDERED: LEVALBUTEROL/IPRATROPIUM NEB INH ONE (19:00)
[2017-10-13] MEDS ORDERED: NURSING VERBAL MED ORDER ONE (19:15)
--- NOTE | 2017-10-13 19:15 | DIAGNOSTIC IMAGING REPORT ---
CHEST ONE VIEW PORTABLE CLINICAL HISTORY: New hypoxia. COMPARISON STUDY: Chest CT October 12, 2017. FINDINGS: Moderate cardiomegaly is again noted. Small bilateral pleural effusion persist. There is no pneumothorax. Mild asymmetric left lung airspace opacity is present. IMPRESSION: 1. Mild interstitial thickening consistent with pulmonary edema. 2. Mild left lung airspace opacity which has slightly increased since prior exam. This could reflect asymmetric pulmonary edema or a superimposed infectious process. 3. Small bilateral pleural effusions. Electronically signed by: Jamal River M.D. 10/13/2017 7:14 PM Dictated Date/Time: 10/13/2017 7:12 PM
[2017-10-13 19:28] LABS: BASO % 0.3 %; BASO ABS # 0.01 K/uL (0-0.2); EOS % 8.1 %; HEMOGLOBIN 13.2 g/dL (14.0-18.0); IG# 0.03 K/uL (0.00-0.02); LYMPH % 14.1 %; LYMPH ABS # 0.52 K/uL (1.2-3.4); MEAN CELL VOLUME 101.3 fL (80-100); MEAN CORPUSCULAR HEMOGLOBIN 35.2 pg (25-34); NEUT % 57.7 %; NEUT ABS # 2.13 K/uL (1.4-6.5); PLATELET COUNT 118 K/uL (130-400); RED CELL DISTRIBUTION WIDTH SD 54.2 fL (36.4-46.3); WHITE BLOOD COUNT 3.69 K/uL (4.8-10.8)
[2017-10-13] MEDS ORDERED: LEVALBUTEROL 1.25MG/0.5ML NEB INH ONE (19:30)
[2017-10-13] MEDS ORDERED: LEVALBUTEROL 1.25MG/0.5ML NEB INH PRN (19:30)
[2017-10-13] MEDS ORDERED: IPRATROPIUM BROMIDE NEB SOLN 0.02% 2.5 ML VIAL INH ONE (19:30)
[2017-10-13 19:44] LABS: MEAN CORPUSCULAR HGB CONC 34.7 g/dl (32-36)
[2017-10-13] MEDS: AMIODARONE / D5W 200 ML IV SCH (19:50)
[2017-10-13 20:08] LABS: CALCIUM 8.4 mg/dl (8.5-10.1); CREATININE 1.67 mg/dl (0.60-1.40); POTASSIUM 3.7 mmol/L (3.5-5.1)
[2017-10-14] VITALS (12 sets, daily range): BP systolic 87–111; BP diastolic 51–68; PULSE 48–121; TEMP 36.6–38; O2SAT 93–99
[2017-10-14] MEDS: METOPROLOL TARTRATE 25 MG TAB PO SCH ×2 (00:11→06:00)
[2017-10-14 00:38] LABS: INFLUENZA B ANTIGEN Neg for Influ B (NEG)
[2017-10-14] MEDS ORDERED: VANCOMYCIN CONSULT ACTIVE PRN (01:45)
[2017-10-14] MEDS ORDERED: PIPERACILL/TAZOBAC CONSULT ACTIVE PRN (01:45)
[2017-10-14] MEDS ORDERED: PIPERACILL/TAZOBAC IV 4.5 GM in DEXTROSE 5% 100ML 100 ML IV STA (01:53)
[2017-10-14] MEDS ORDERED: VANCOMYCIN INJ 2,250 MG in SODIUM CHLORIDE 0.9% 500ML 500 ML IV ONE (02:30)
[2017-10-14] MEDS: ACETAMINOPHEN 325 MG TAB PO PRN (04:02)
[2017-10-14 06:16] LABS: HEMATOCRIT 36.1 % (42-52); HEMOGLOBIN 12.6 g/dL (14.0-18.0); MEAN CELL VOLUME 101.7 fL (80-100); MEAN CORPUSCULAR HEMOGLOBIN 35.5 pg (25-34); MEAN CORPUSCULAR HGB CONC 34.9 g/dl (32-36); MEAN PLATELET VOLUME 9.8 fL (7.4-10.4); PLATELET COUNT 100 K/uL (130-400); RED CELL DISTRIBUTION WIDTH CV 15.1 % (11.5-14.5); WHITE BLOOD COUNT 3.19 K/uL (4.8-10.8)
[2017-10-14 06:20] LABS: INR 2.7 (0.9-1.1)
[2017-10-14 06:57] LABS: CALCIUM 8.2 mg/dl (8.5-10.1); CREATININE 2.12 mg/dl (0.60-1.40); POTASSIUM 3.7 mmol/L (3.5-5.1)
[2017-10-14] MEDS: PIPERACILL/TAZOBAC IV 4.5 GM in DEXTROSE 5% 100ML IV SCH ×3 (07:21→23:37)
[2017-10-14] MEDS: AMIODARONE / D5W 200 ML IV SCH (07:24)
[2017-10-14] MEDS: ASPIRIN 81 MG ECTAB PO SCH (07:26)
[2017-10-14] MEDS: POMALIDOMIDE 4 MG PO SCH (07:28)
[2017-10-14] MEDS: LISINOPRIL 40 MG TAB PO SCH (07:30)
--- NOTE | 2017-10-14 10:20 | Cardiology Follow-Up ---
Subjective Date of Service: Oct 14, 2017. Pt evaluation today including: conversation w/ patient, conversation w/ family , physical exam, chart review, lab review, review of studies, review of inpatient medication list, conversation w/ attending History of Present Illness The patient has difficult time yesterday evening. He has had some worsening of his coughing episodes and reportedly another episode of syncope while coughing. He was apparently having more breathing difficulty was noted on more than 1 occasion have an element of hypoxia. Patient was started on supplemental oxygen and used his CPAP overnight. He is also started on beta agonists over the course of the evening. This morning he states that his breathing is a little more labored and certainly not better than since admission. He is having more frequent coughing and describes a sense of needing to "get the congestion up". Patient is struggle with episodes of bronchitis in the past and reports feeling similar to episodes of bronchitis currently. Social History Smoking Status: Never Smoker History of Alcohol Use: No Review of Systems Respiratory: + cough, No dyspnea on exertion, No dyspnea at rest, No hemoptysis Cardiac: No chest pain, No orthopnea, No edema, No palpitations No recent constitutional symptoms such as fevers or chills. Some nonproductive cough Objective Vital Signs Past 12 Hours Date Time Temp Pulse Resp B/P (MAP) Pulse Ox O2 Delivery O2 Flow Rate FiO2 10/14/17 08:04 36.7 60 16 87/52 (64) 97 Nasal Cannula 10/14/17 08:00 97 Nasal Cannula 3.0 CPAP 10/14/17 07:31 48 105/66 (79) 97 CPAP 3.0 10/14/17 04:24 74 24 96 Nasal Cannula 4.0 10/14/17 04:00 Nasal Cannula 3.0 10/14/17 03:55 38.0 75 22 102/61 (75) 96 CPAP 10/14/17 00:01 Nasal Cannula 3.0 10/13/17 23:54 37.2 74 26 105/59 (74) 88 CPAP Last Recorded Weight-Kilograms: 105.600 Intake & Output 8-Hour Column 10/14/17 10/15/17 10/15/17 16:00 00:00 08:00 Intake Total 300 ml Balance 300 ml 24-Hour Column 10/15/17 08:00 Intake Total 300 ml Balance 300 ml Physical Exam The patient is alert and oriented. He appears slightly more ill this morning. He did have several coughing episodes and appear to have some labored breathing. Neuro: Cranial nerves intact Lungs: Some coarse upper airway sounds and occasional crackle in the left base. Some expiratory wheezing. Cardiac: Heart demonstrates a regular rate and rhythm. Normal S1 and S2. No murmurs on examination. Pulses: The patient has palpable radial pulses bilaterally that are equal in intensity Extremities: There was no evidence of hypoperfusion. Skin: I did not appreciate any rashes on examination today. Data Laboratory Results: Last 24 Hours Test 10/13/17 11:06 10/13/17 18:42 10/13/17 19:07 10/13/17 23:35 Troponin I 0.028 ng/ml 0.029 ng/ml Bedside Glucose 165 mg/dl White Blood Count 3.69 K/uL Red Blood Count 3.75 M/uL Hemoglobin 13.2 g/dL Hematocrit 38.0 % Mean Corpuscular Volume 101.3 fL Mean Corpuscular Hemoglobin 35.2 pg Mean Corpuscular Hemoglobin Concent 34.7 g/dl Platelet Count 118 K/uL Mean Platelet Volume 10.0 fL Neutrophils (%) (Auto) 57.7 % Lymphocytes (%) (Auto) 14.1 % Monocytes (%) (Auto) 19.0 % Eosinophils (%) (Auto) 8.1 % Basophils (%) (Auto) 0.3 % Neutrophils # (Auto) 2.13 K/uL Lymphocytes # (Auto) 0.52 K/uL Monocytes # (Auto) 0.70 K/uL Eosinophils # (Auto) 0.30 K/uL Basophils # (Auto) 0.01 K/uL RDW Standard Deviation 54.2 fL RDW Coefficient of Variation 15.0 % Immature Granulocyte % (Auto) 0.8 % Immature Granulocyte # (Auto) 0.03 K/uL Sodium Level 136 mmol/L Potassium Level 3.7 mmol/L Chloride Level 101 mmol/L Carbon Dioxide Level 27 mmol/L Anion Gap 8.0 mmol/L Blood Urea Nitrogen 25 mg/dl Creatinine 1.67 mg/dl Est Creatinine Clear Calc Drug Dose 64.9 ml/min Estimated GFR () 55.6 Estimated GFR (Non- 48.0 BUN/Creatinine Ratio 15.0 Random Glucose 142 mg/dl Calcium Level 8.4 mg/dl Procalcitonin 0.07 ng/ml Influenza Type A Antigen Neg for Influ A Influenza Type B Antigen Neg for Influ B Test 10/14/17 05:41 White Blood Count 3.19 K/uL Red Blood Count 3.55 M/uL Hemoglobin 12.6 g/dL Hematocrit 36.1 % Mean Corpuscular Volume 101.7 fL Mean Corpuscular Hemoglobin 35.5 pg Mean Corpuscular Hemoglobin Concent 34.9 g/dl RDW Standard Deviation 55.0 fL RDW Coefficient of Variation 15.1 % Platelet Count 100 K/uL Mean Platelet Volume 9.8 fL Prothrombin Time 27.7 SECONDS Prothromb Time International Ratio 2.7 Sodium Level 136 mmol/L Potassium Level 3.7 mmol/L Chloride Level 101 mmol/L Carbon Dioxide Level 27 mmol/L Anion Gap 8.0 mmol/L Blood Urea Nitrogen 30 mg/dl Creatinine 2.12 mg/dl Est Creatinine Clear Calc Drug Dose 51.6 ml/min Estimated GFR () 41.7 Estimated GFR (Non- 36.0 BUN/Creatinine Ratio 14.1 Random Glucose 166 mg/dl Calcium Level 8.2 mg/dl Imaging: Chest x-ray was obtained today which suggested an interstitial pattern possibly pulmonary edema and a focal area in the left midlung. Telemetry reviewed: Mostly sinus rhythm and sinus bradycardia with occasional in fairly brief episodes of atrial fibrillation. Assessment and Plan 1. Acute decompensated diastolic heart failure: He has diuresed fairly aggressively during the initial portion of his hospitalization. He initially stated this improved some of his breathing but now says that his breathing never improved. He has had some worsening of his renal function and appears to be slightly intravascularly depleted. I stopped his diuretic. 2. Atrial fibrillation and flutter: He continues to have some episodes but they are of brief duration. Overall they are well tolerated. I do not feel he has many symptoms related to the arrhythmia itself. I think given the discussion documented previously we will continue on amiodarone with an eventual plan for catheter based therapy. 3. Elevated troponin: Not normal 4. Left ventricular hypertrophy: This is of unclear etiology. Blood pressures been well controlled. His overall heart rates are well controlled on metoprolol. He still continues to have elements of tachycardia with atrial fibrillation. This may improve with amiodarone therapy as well. We need to be cautious regarding dehydration as this will compromise his ventricular function even more. 5. Syncope: This appears to be related to his coughing. Possibly transient hypoxia. Certainly no arrhythmia associated with these episodes. No significant pauses or evidence of a cardioinhibitory effect. 6. Dyspnea: Patient's dyspnea may be multifactorial. He has had adequate diuresis his lung exam is certainly improved. He does not have orthopnea but continues to have symptoms of dyspnea with exertion. He also has a lot of coughing. He may in fact have a bronchitis or primary pulmonary process as well. He did have a slight fever last evening. He has symptoms upper airway congestion on exam. He has been started on antibiotics and beta agonists.
[2017-10-14] MEDS ORDERED: KCL IV ONE (10:45)
[2017-10-14] MEDS ORDERED: NSS IV ONE (10:45)
[2017-10-14] MEDS ORDERED: DEXAMETHASONE INJ 10 MG in SYRINGE 0 ML IV ONE (11:15)
[2017-10-14] MEDS: LEVALBUTEROL 1.25MG/3ML NEB INH SCH ×3 (11:26→18:59)
--- NOTE | 2017-10-14 13:46 | PULMONARY CONSULTATION ---
DATE OF CONSULTATION: 10/14/2017 TIME: 12:50 p.m. REPORT OF CONSULTATION: The patient was seen in room 233. He is a 47-year-old male who is being seen because of a cough and shortness of breath. The patient has a history of multiple myeloma. He was diagnosed in 2013. He had stem cell transplant in 2014 at the [facility]. For a couple of months, he has been having feeling like he has a cold. He had an episode in late August, where he went to an urgent care. He was told that he had pneumonia. He was treated with azithromycin and prednisone. He was admitted to [facility] from September 13 through September 15 after having had a syncopal episode. Reportedly, he had choked on some tea and had suffered a cough and passing out spell. During that hospital stay, he was found to have paroxysmal atrial fibrillation. Coumadin was started. The patient has had progressive exertional shortness of breath in the last week or two. He has had some chest tightness or chest pain. He has had difficulty getting up the stairs at home. He came to the Emergency Room in the very late hours of October 11. He was subsequently admitted after midnight. The patient has had 3 episodes of tussive syncope while in the hospital. He apparently gets very aggressive coughing. He is expectorating small amount of mucus. It has been clear in color. The patient did not mention this to the and stated that last month at the time of the pneumonia, he coughed up a little blood. This was before being on the blood thinners. He has not coughed up any blood at this time. The patient has been febrile. His fevers have for the most part been low grade. His maximum temperature was 38 degrees, which was in the very pacu rn hours of today. The patient did have a CAT scan of the chest done in October 11. The CAT scan showed moderate bilateral pleural effusions. Particularly in the left lung were multifocal nodular airspace opacities likely secondary to pneumonia. These were small and nodular in appearance. PAST PULMONARY HISTORY: The patient denies prior lung problems. PAST MEDICAL HISTORY: 1. Multiple myeloma. 2. Diastolic CHF. 3. Obstructive sleep apnea, for which he wears CPAP. 4. Paroxysmal atrial fibrillation. 5. Hypertension. 6. Reflux. 7. Chronic kidney disease, stage II. PAST SURGICAL HISTORY: 1. Stem cell transplant. 2. Vasectomy. SOCIAL HISTORY: Tobacco never. ALLERGIES: No known allergies. FAMILY HISTORY: Unknown as the patient was adopted. MEDICATIONS: At home: 1. Aspirin 81 mg daily. 2. Warfarin 2.5 mg daily except 1 day per week 5 mg. 3. Pomalidomide 4 mg daily. 4. Metoprolol 12.5 mg b.i.d. 5. Lisinopril 40 mg daily. 6. Escitalopram 10 mg daily. 7. Dexamethasone 20 mg weekly. REVIEW OF SYSTEMS: Difficult to obtain. The patient was wearing his CPAP when I spoke with him. Essentially negative except as noted above. PHYSICAL EXAMINATION: GENERAL: The patient is a 47-year-old male who was cooperative, alert and oriented. VITAL SIGNS: His weight is 105.6 kilograms. BMI is 34.4. Temperature currently 37.5. Maximum temperature overnight was 38. Heart rate was 79 per minute. The rhythm was regular. Blood pressure 108/65. HEENT: Pupils were reactive. I could not examine nasal passages as he had a nasal CPAP mask in place. Likewise, I could not examine the oropharynx. NECK: Palpation of the neck reveals no lymph nodes. LUNGS: Lung jimenez revealed good breath sounds bilaterally. He did cough with taking breaths. Very few scattered minimal rales were heard. Saturation was 97%. He did have a CPAP in place. His CPAP is set at 9 cm. ABDOMEN: Moderately obese. Bowel sounds were active. There was no tenderness to palpation, masses or organomegaly. EXTREMITIES: Showed no cyanosis, clubbing or edema. LABORATORY DATA: White count is 3.19. Hemoglobin 12.6. Platelets 100,000. INR today is 2.7. Electrolytes show sodium 136, potassium 3.7, chloride 101, and bicarbonate 27. The BUN is 30 with a creatinine of 2.12. Blood sugar was 166. Calcium was 8.2. Procalcitonin was 0.07. Troponins are negative. Flu test is negative. IMPRESSIONS: 1. Patchy pneumonia, mainly involving the left lung. 2. Bilateral pleural effusions. 3. Obstructive sleep apnea on CPAP. 4. Diastolic congestive heart failure. 5. Multiple myeloma. 6. Tussive syncope. COMMENTS AND RECOMMENDATIONS: The patient has fairly significant symptoms. It probably is multifactorial as to why he has the cough and shortness of breath. His CAT scan appears that he has a probable pneumonia. He does have a diastolic CHF and pleural effusions. In light of his tussive syncope, I believe we should try to suppress his cough at least modestly. I am going to order benzonatate Perles for him. We will also order a sputum culture. The hope would be to just decrease to cough enough that he is not terribly uncomfortable and has a decreased risk of syncope. We obviously still want him to be able to expectorate phlegm if he has any. The patient is on vancomycin and Zosyn. He is on levalbuterol. I agree with those. He does need very close followup. I would culture his blood if he has any spikes of fever. Thank you for asking me to assist in his care.
--- NOTE | 2017-10-14 14:34 | Pharmacy Progress Note ---
Pharmacy Antibiotic Consult Date of Service: Oct 14, 2017. Pharmacy Dosing Scope Pharmacy is consulted to initiate vancomycin and Zosyn IV dosing therapy, order appropriate labs and adjust drug dose/frequency. Subjective The patient is a 47 year old male admitted on Oct 12, 2017 at 00:54 with pneumonia. Objective Height (Feet): 5 Height (Inches): 9.00 Weight (Kilograms): 105.600 Lab Results (24hrs): Test 10/13/17 18:42 10/13/17 19:07 10/13/17 23:35 10/14/17 05:41 Bedside Glucose 165 mg/dl (70-99) White Blood Count 3.69 K/uL (4.8-10.8) 3.19 K/uL (4.8-10.8) Red Blood Count 3.75 M/uL (4.7-6.1) 3.55 M/uL (4.7-6.1) Hemoglobin 13.2 g/dL (14.0-18.0) 12.6 g/dL (14.0-18.0) Hematocrit 38.0 % (42-52) 36.1 % (42-52) Mean Corpuscular Volume 101.3 fL (80-100) 101.7 fL (80-100) Mean Corpuscular Hemoglobin 35.2 pg (25-34) 35.5 pg (25-34) Mean Corpuscular Hemoglobin Concent 34.7 g/dl (32-36) 34.9 g/dl (32-36) Platelet Count 118 K/uL (130-400) 100 K/uL (130-400) Mean Platelet Volume 10.0 fL (7.4-10.4) 9.8 fL (7.4-10.4) Neutrophils (%) (Auto) 57.7 % Lymphocytes (%) (Auto) 14.1 % Monocytes (%) (Auto) 19.0 % Eosinophils (%) (Auto) 8.1 % Basophils (%) (Auto) 0.3 % Neutrophils # (Auto) 2.13 K/uL (1.4-6.5) Lymphocytes # (Auto) 0.52 K/uL (1.2-3.4) Monocytes # (Auto) 0.70 K/uL (0.11-0.59) Eosinophils # (Auto) 0.30 K/uL (0-0.5) Basophils # (Auto) 0.01 K/uL (0-0.2) RDW Standard Deviation 54.2 fL (36.4-46.3) 55.0 fL (36.4-46.3) RDW Coefficient of Variation 15.0 % (11.5-14.5) 15.1 % (11.5-14.5) Immature Granulocyte % (Auto) 0.8 % Immature Granulocyte # (Auto) 0.03 K/uL (0.00-0.02) Sodium Level 136 mmol/L (136-145) 136 mmol/L (136-145) Potassium Level 3.7 mmol/L (3.5-5.1) 3.7 mmol/L (3.5-5.1) Chloride Level 101 mmol/L (98-107) 101 mmol/L (98-107) Carbon Dioxide Level 27 mmol/L (21-32) 27 mmol/L (21-32) Anion Gap 8.0 mmol/L (3-11) 8.0 mmol/L (3-11) Blood Urea Nitrogen 25 mg/dl (7-18) 30 mg/dl (7-18) Creatinine 1.67 mg/dl (0.60-1.40) 2.12 mg/dl (0.60-1.40) Est Creatinine Clear Calc Drug Dose 64.9 ml/min 51.6 ml/min Estimated GFR () 55.6 41.7 Estimated GFR (Non- 48.0 36.0 BUN/Creatinine Ratio 15.0 (10-20) 14.1 (10-20) Random Glucose 142 mg/dl (70-99) 166 mg/dl (70-99) Calcium Level 8.4 mg/dl (8.5-10.1) 8.2 mg/dl (8.5-10.1) Troponin I 0.029 ng/ml (0-0.045) Procalcitonin 0.07 ng/ml (0-0.5) Influenza Type A Antigen Neg for Influ A (NEG) Influenza Type B Antigen Neg for Influ B (NEG) Prothrombin Time 27.7 SECONDS (9.0-12.0) Prothromb Time International Ratio 2.7 (0.9-1.1) Test 10/14/17 13:40 Micro Results: 10/12 nasal swab neg MRSA 10/13 blood x2 pending Recent Pertinent Medications Item Value Date Time Vancomycin HCl 530 ml @ 200 mls/hr 10/14/17 1600 1500 mg/Sodium Q16H/IV Chloride Piperacillin Sod/ 120 ml @ 30 mls/hr 10/14/17 0800 Tazobactam Sod Q8H/IV 10/14/17 0721 4.5 gm/Dextrose Vancomycin HCl 545 ml @ 200 mls/hr 10/14/17 0230 2250 mg/Sodium NOW ONCE/IV 10/14/17 0230 Chloride Piperacillin Sod/ 120 ml @ 200 mls/hr 10/14/17 0153 Tazobactam Sod NOW STAT/IV 10/14/17 0153 4.5 gm/Dextrose Assessment & Plan Loading dose: vancomycin 2250 mg IV X 1 dose (modified loading dose) then: vancomycin 1500 mg IV every 16 hours. Goal peak level estimate: between 25-40 mcg/mL. Goal trough level estimate: between 15-20 mcg/mL. Trough has been ordered for: before 10/16 0000 dose. Zosyn 4.5 Gm x1 loading dose, then 4.5 Gm (infused over 4 hr) every 8 hr. for CrCl greater than 20 ml/min. Pharmacy will continue to follow and will adjust dose/frequency as necessary. Thank you
[2017-10-14] MEDS: BENZONATATE 100MG CAP PO SCH ×2 (15:15→20:23)
[2017-10-14] MEDS: WARFARIN SOD 2.5 MG TAB PO SCH (16:44)
[2017-10-14] MEDS: VANCOMYCIN INJ 1,500 MG in SODIUM CHLORIDE 0.9% 500ML 500 ML IV SCH (16:52)
--- NOTE | 2017-10-14 17:47 | Family Medicine Progress Note ---
Progress Note Date of Service Oct 14, 2017. Subjective Pt evaluation today including: conversation w/ patient, physical exam, chart review, conversation w/ solar sales consultant, review of inpatient medication list Pain: none PO Intake: adequate Voiding: no voiding problems Patient has been feeling worse over the past 12-24 hours Did have another syncopal episode yesterday evening after having a coughing spell He spiked a temp of 38 yesterday evening and was started on IV antibiotics for pneumonia He continues to cough and is feeling more short of breath today Constitutional: + sweats, No fever, No chills Respiratory: + cough, + sputum, + shortness of breath, No hemoptysis Cardiovascular: No chest pain, No edema, No palpitations Abdomen: No pain, No nausea, No vomiting Musculoskeletal: No joint pain Male : No dysuria, No urinary frequency, No hematuria Endo: + fatigue Medications Current Inpatient Medications Medications (Trade) Dose Ordered Sig/Garcia Route Start Time Stop Time Status Last Admin Dose Admin Ioversol (Optiray 320) 100 ml UD PRN IV 10/12/17 00:00 10/16/17 00:00 Lisinopril (Zestril Tab) 40 mg DAILY PO 10/12/17 09:00 11/11/17 08:59 Future Hold 10/14/17 07:30 40 MG Pantoprazole Sodium (Protonix Tab) 40 mg DAILY PRN PO 10/12/17 00:15 11/11/17 00:14 Acetaminophen (Tylenol Tab) 650 mg Q4H PRN PO 10/12/17 01:00 11/11/17 00:59 10/14/17 04:02 650 MG Al Hydrox/Mg Hydrox/Simethicone (Maalox Max Susp) 15 ml Q4H PRN PO 10/12/17 01:00 11/11/17 00:59 Magnesium Hydroxide (Milk Of Magnesia Susp) 30 ml Q12H PRN PO 10/12/17 01:00 11/11/17 00:59 Zolpidem Tartrate (Ambien Tab) 5 mg HSZ PRN PO 10/12/17 01:00 11/11/17 00:59 Ondansetron HCl (Zofran Inj) 4 mg Q6H PRN IV 10/12/17 01:00 11/11/17 00:59 10/13/17 16:27 4 MG Aspirin (Ecotrin Tab) 81 mg QAM PO 10/12/17 09:00 11/11/17 08:59 10/14/17 07:26 81 MG Polyethylene (Miralax Powder Packet) 17 gm DAILY PRN PO 10/12/17 01:00 11/11/17 00:59 Miscellaneous (Iv Fluids Completed) 1 ea PRN PRN N/A 10/12/17 06:15 10/12/18 06:14 Metoprolol Tartrate (Lopressor Tab) 12.5 mg Q6 PO 10/12/17 12:00 11/11/17 08:59 Future Hold 10/14/17 00:11 12.5 MG Pomalidomide (Pomalyst) 4 mg DAILY PO 10/13/17 09:00 11/12/17 08:59 10/14/17 07:28 4 MG Miscellaneous Information (Consult) 1 ea UD PRN N/A 10/14/17 01:45 11/13/17 01:44 Miscellaneous Information (Consult) 1 ea UD PRN N/A 10/14/17 01:45 11/13/17 01:44 Piperacillin Sod/ Tazobactam Sod 4.5 gm/Dextrose 120 ml @ 30 mls/hr Q8H IV 10/14/17 08:00 10/21/17 07:59 10/14/17 16:52 30 MLS/HR Vancomycin HCl 1500 mg/Sodium Chloride 530 ml @ 200 mls/hr Q16H IV 10/14/17 16:00 10/21/17 15:59 10/14/17 16:52 200 MLS/HR Benzonatate (Tessalon Perles Cap) 200 mg TID PO 10/14/17 14:00 11/13/17 13:59 10/14/17 15:15 200 MG Warfarin Sodium (Coumadin Tab) 5 mg MoTh@1600 PO 10/17/17 16:00 11/16/17 15:59 Warfarin Sodium (Coumadin Tab) 2.5 mg SuTuWeFrSa@1600 PO 10/14/17 16:00 11/13/17 15:59 10/14/17 16:44 2.5 MG Levalbuterol (Xopenex 1.25MG/ 3ML Neb) 1.25 mg Q4RWA INH 10/14/17 16:00 11/13/17 10:59 10/14/17 16:14 1.25 MG Objective Vital Signs Date Time Temp Pulse Resp B/P (MAP) Pulse Ox O2 Delivery O2 Flow Rate FiO2 10/14/17 16:25 70 18 94 Nasal Cannula 2.5 10/14/17 15:10 37.5 76 18 111/68 (82) 99 Nasal Cannula 10/14/17 12:00 Nasal Cannula 3.0 10/14/17 11:26 71 20 97 BiPAP/CPAP 2.0 10/14/17 11:14 37.5 100 18 108/65 (79) 93 CPAP 10/14/17 08:04 36.7 60 16 87/52 (64) 97 Nasal Cannula 10/14/17 08:00 97 Nasal Cannula 3.0 CPAP 10/14/17 07:31 48 105/66 (79) 97 CPAP 3.0 10/14/17 04:24 74 24 96 Nasal Cannula 4.0 10/14/17 04:00 Nasal Cannula 3.0 10/14/17 03:55 38.0 75 22 102/61 (75) 96 CPAP 10/14/17 00:01 Nasal Cannula 3.0 10/13/17 23:54 37.2 74 26 105/59 (74) 88 CPAP 10/13/17 20:21 63 90/59 (69) 10/13/17 20:18 64 10/13/17 20:00 Nasal Cannula 2.0 10/13/17 19:58 120 10/13/17 19:39 37.4 65 20 93/56 (68) 94 Nasal Cannula 2.0 10/13/17 19:31 60 16 95 Nasal Cannula 4.0 Physical Exam General Appearance: WD/WN, + mild distress, + pertinent finding (patient appears sweaty) Neck: supple, no JVD, no carotid bruits Respiratory/Chest: no accessory muscle use, + respiratory distress, + decreased breath sounds (bilaterally), + crackles (LLL crackles) Cardiovascular: regular rate, rhythm, no edema, no JVD, + pertinent finding ( heart sounds difficult to hear) Abdomen: normal bowel sounds, non tender, soft Extremities: non-tender, no pedal edema, no calf tenderness Skin: normal color, warm/dry, no rash Laboratory Results Results Past 24 Hours Test 10/13/17 18:42 10/13/17 19:07 10/13/17 23:35 10/14/17 05:41 Range/Units Bedside Glucose 165 70-99 mg/dl White Blood Count 3.69 3.19 4.8-10.8 K/uL Red Blood Count 3.75 3.55 4.7-6.1 M/uL Hemoglobin 13.2 12.6 14.0-18.0 g/dL Hematocrit 38.0 36.1 42-52 % Mean Corpuscular Volume 101.3 101.7 80-100 fL Mean Corpuscular Hemoglobin 35.2 35.5 25-34 pg Mean Corpuscular Hemoglobin Concent 34.7 34.9 32-36 g/dl Platelet Count 118 100 130-400 K/uL Mean Platelet Volume 10.0 9.8 7.4-10.4 fL Neutrophils (%) (Auto) 57.7 % Lymphocytes (%) (Auto) 14.1 % Monocytes (%) (Auto) 19.0 % Eosinophils (%) (Auto) 8.1 % Basophils (%) (Auto) 0.3 % Neutrophils # (Auto) 2.13 1.4-6.5 K/uL Lymphocytes # (Auto) 0.52 1.2-3.4 K/uL Monocytes # (Auto) 0.70 0.11-0.59 K/uL Eosinophils # (Auto) 0.30 0-0.5 K/uL Basophils # (Auto) 0.01 0-0.2 K/uL RDW Standard Deviation 54.2 55.0 36.4-46.3 fL RDW Coefficient of Variation 15.0 15.1 11.5-14.5 % Immature Granulocyte % (Auto) 0.8 % Immature Granulocyte # (Auto) 0.03 0.00-0.02 K/uL Sodium Level 136 136 136-145 mmol/L Potassium Level 3.7 3.7 3.5-5.1 mmol/L Chloride Level 101 101 98-107 mmol/L Carbon Dioxide Level 27 27 21-32 mmol/L Anion Gap 8.0 8.0 3-11 mmol/L Blood Urea Nitrogen 25 30 7-18 mg/dl Creatinine 1.67 2.12 0.60-1.40 mg/dl Est Creatinine Clear Calc Drug Dose 64.9 51.6 ml/min Estimated GFR () 55.6 41.7 Estimated GFR (Non- 48.0 36.0 BUN/Creatinine Ratio 15.0 14.1 10-20 Random Glucose 142 166 70-99 mg/dl Calcium Level 8.4 8.2 8.5-10.1 mg/dl Troponin I 0.029 0-0.045 ng/ml Procalcitonin 0.07 0-0.5 ng/ml Influenza Type A Antigen Neg for Influ A NEG Influenza Type B Antigen Neg for Influ B NEG Prothrombin Time 27.7 9.0-12.0 SECONDS Prothromb Time International Ratio 2.7 0.9-1.1 Test 10/14/17 13:40 Range/Units Microbiology Results 10/13/17 Blood Culture, Received Pending 10/13/17 Blood Culture, Received Pending Assessment and Plan 47 y/o M Hx multiple myeloma, grade II diastolic dysfunction, paroxysmal AF, DEBBY , CKD II. Pt presented with progressive exertional SOB and intermittent CP. 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) - CT showed moderate bilateral pleural effusions - diuresis currently held secondary to decreased urine output and bump in BUN and creatinine - monitor I/O's Atrial Flutter/Atrial Fibrillation - found to be in aflutter on admission - metoprolol to 12.5 q6hrs ---> held secondary to low heart rate and BP - amiodarone drip stopped by cardiology with plan to switch to PO - plan for outpatient ablation - troponin downtrending - currently anticoagulated with warfarin, INR 2.7 Syncope - not associated with arrythmia episodes, tends to be associated with coughing - vagal episodes vs hypoxia from coughing? - Pulm added john rehman Multiple Myeloma - Oncology consulted - On Pomalidomide through oncology - Had stem cell transplant 20 months ago - question if meds causing cardiac S/E's? - 10mg of decadron given as stress dose steroids - receives 20mg weekly at home of decadron Hypertension - lisinopril samira secondary to ARSENIO - BP adequately controlled Depression - continue lexapro ARSENIO on CKD II - creatinine bumped to 2.12 with decreased UO overnight - diuresis held and patient given 500ml over 5 hrs - we will trend AM DEBBY - will provide a CPAP DVT - warfarin Full Code Resident Physician Supervision Note: I was present with Dr. Monk during the history and exam. I discussed the case with the resident and agree with the findings and plan as documented in the note. Any exceptions or clarifications are listed here: Patient had increased resp distress/anxiety when nursing removed CPAP for care. However, he looks better at the time of my exam, as the CPAP is back on. Recommend stress dose steroids and scheduled Xopenex via nebulizer; agree with pulmonary consult. I also discussed the case with pulmonary medicine. Documented By: Delfin Serrano Continued [facility] stay due to: multiple IV medications needed Discharge planning: uncertain
[2017-10-14] MEDS: AMIODARONE 200 MG TAB PO SCH (20:20)
[2017-10-15] VITALS (11 sets, daily range): BP systolic 97–126; BP diastolic 59–72; PULSE 61–95; TEMP 36.4–36.8; O2SAT 93–99
[2017-10-15] MEDS: LEVALBUTEROL 1.25MG/3ML NEB INH SCH ×4 (07:41→18:59)
[2017-10-15 08:41] LABS: HEMATOCRIT 35.6 % (42-52); HEMOGLOBIN 12.4 g/dL (14.0-18.0); MEAN CELL VOLUME 101.1 fL (80-100); MEAN CORPUSCULAR HEMOGLOBIN 35.2 pg (25-34); MEAN CORPUSCULAR HGB CONC 34.8 g/dl (32-36); MEAN PLATELET VOLUME 10.1 fL (7.4-10.4); PLATELET COUNT 114 K/uL (130-400); RED CELL DISTRIBUTION WIDTH CV 15.3 % (11.5-14.5); RED CELL DISTRIBUTION WIDTH SD 55.2 fL (36.4-46.3); WHITE BLOOD COUNT 2.97 K/uL (4.8-10.8)
[2017-10-15] MEDS: VANCOMYCIN INJ 1,500 MG in SODIUM CHLORIDE 0.9% 500ML 500 ML IV SCH (08:43)
[2017-10-15] MEDS: AMIODARONE 200 MG TAB PO SCH ×2 (08:44→20:09)
[2017-10-15] MEDS: ASPIRIN 81 MG ECTAB PO SCH (08:44)
[2017-10-15] MEDS: BENZONATATE 100MG CAP PO SCH ×3 (08:46→20:09)
[2017-10-15] MEDS: POMALIDOMIDE 4 MG PO SCH (08:47)
[2017-10-15] MEDS: PIPERACILL/TAZOBAC IV 4.5 GM in DEXTROSE 5% 100ML IV SCH ×3 (08:48→23:25)
[2017-10-15] MEDS ORDERED: HYDROCORTISONE IV 50 MG in SYRINGE 0 ML IV SCH (09:00)
[2017-10-15 09:01] LABS: INR 3.7 (0.9-1.1)
[2017-10-15 09:06] LABS: CALCIUM 8.6 mg/dl (8.5-10.1); CREATININE 2.6 mg/dl (0.60-1.40); POTASSIUM 3.9 mmol/L (3.5-5.1)
--- NOTE | 2017-10-15 09:34 | Cardiology Follow-Up ---
Subjective Date of Service: Oct 15, 2017. Pt evaluation today including: conversation w/ patient, physical exam, chart review, lab review, review of studies, review of inpatient medication list History of Present Illness Patient appears much more comfortable this morning. His coughing has improved significantly. He did report some worsening coughing early this morning, but certainly over the course of last evening it was better. He states his breathing is also slightly better. He has been ambulatory around the room. He denied dizziness or lightheadedness. He has not any symptoms of chest discomfort. He denies any sense of palpitation recently. Social History Smoking Status: Never Smoker History of Alcohol Use: No Review of Systems Respiratory: + cough, + sputum, + shortness of breath, No hemoptysis Cardiac: No chest pain, No edema, No palpitations No recent constitutional symptoms such as fevers or chills. Some nonproductive cough Objective Vital Signs Past 12 Hours Date Time Temp Pulse Resp B/P (MAP) Pulse Ox O2 Delivery O2 Flow Rate FiO2 10/15/17 08:07 36.6 90 18 121/72 (88) 98 Room Air 10/15/17 07:41 90 15 98 Room Air 10/15/17 04:00 Room Air 10/15/17 03:34 36.6 70 22 105/66 (79) 98 CPAP 10/15/17 00:00 36.6 69 18 102/64 (77) 97 Room Air 10/15/17 00:00 Room Air Last Recorded Weight-Kilograms: 107.600 Physical Exam The patient is alert and oriented. He was not in any acute distress this morning. He answered all questions appropriately. Neuro: Cranial nerves intact Lungs: Some coarse upper airway sounds and occasional crackle in the left base. Some expiratory wheezing. Cardiac: Heart demonstrates a regular rate and rhythm. Normal S1 and S2. No murmurs on examination. Pulses: The patient has palpable radial pulses bilaterally that are equal in intensity Extremities: There was no evidence of hypoperfusion. Skin: I did not appreciate any rashes on examination today. Data Laboratory Results: Last 24 Hours Test 10/14/17 13:40 10/15/17 07:34 White Blood Count 2.97 K/uL Red Blood Count 3.52 M/uL Hemoglobin 12.4 g/dL Hematocrit 35.6 % Mean Corpuscular Volume 101.1 fL Mean Corpuscular Hemoglobin 35.2 pg Mean Corpuscular Hemoglobin Concent 34.8 g/dl RDW Standard Deviation 55.2 fL RDW Coefficient of Variation 15.3 % Platelet Count 114 K/uL Mean Platelet Volume 10.1 fL Prothrombin Time 38.1 SECONDS Prothromb Time International Ratio 3.7 Sodium Level 136 mmol/L Potassium Level 3.9 mmol/L Chloride Level 103 mmol/L Carbon Dioxide Level 26 mmol/L Anion Gap 7.0 mmol/L Blood Urea Nitrogen 35 mg/dl Creatinine 2.60 mg/dl Est Creatinine Clear Calc Drug Dose 42.5 ml/min Estimated GFR () 32.6 Estimated GFR (Non- 28.1 BUN/Creatinine Ratio 13.3 Random Glucose 163 mg/dl Calcium Level 8.6 mg/dl Telemetry reviewed: He did 1 episode of atrial fibrillation over the course of the evening which lasted approximately 15-20 minutes. He had a couple of very brief episodes during the day yesterday. These generally lasted 10 minutes or less. Assessment and Plan 1. Acute decompensated diastolic heart failure: I think is pulmonary vascular congestion has resolved. His diuretic is being held in light of his declining renal function. He was given small amount of fluid yesterday. His beta- blockers also being held due to some bradycardia but primarily hypotension yesterday. 2. Atrial fibrillation and flutter: Overall improved. We made the decision to pursue outpatient catheter based therapy. In the interim he was started on amiodarone and has been switched to an oral regimen. Overall episodes are reduced in frequency and duration. This may be related to the amiodarone or simply improvement in his clinical condition. He should continue on warfarin indefinitely. 3. Elevated troponin: Now normal 4. Left ventricular hypertrophy: This is of unclear etiology. Blood pressures been well controlled. His overall heart rates are well controlled on metoprolol. He still continues to have elements of tachycardia with atrial fibrillation. This may improve with amiodarone therapy as well. We need to be cautious regarding dehydration as this will compromise his ventricular function even more. 5. Syncope: This appears to be related to his coughing. Possibly transient hypoxia. Certainly no arrhythmia associated with these episodes. No significant pauses or evidence of a cardioinhibitory effect. 6. Dyspnea: This appears to be multifactorial. Initially contribution from pulmonary vascular congestion which I believe has resolved. He is not being treated for broncho pneumonia and has had some improvement on the current medical regimen. 7. Acute kidney injury: Possibly an element of prerenal azotemia and ATN given his transient hypotension yesterday. Diuretics are being held. Hopefully we will see some gradual improvement in this function over the next day or 2.
--- NOTE | 2017-10-15 09:39 | Hematology/Oncology Prog Note ---
Hematology/Onc Progress Note Date of Service Oct 15, 2017. Diagnoses Shortness of breath Diastolic heart failure LVH Multiple myeloma Medications Medications Administered Medications (Trade) Dose Ordered Sig/Garcia Route Start Time Stop Time Status Last Admin Dose Admin Aspirin (Aspirin Chew) 324 mg NOW STAT PO 10/11/17 22:57 10/11/17 22:58 DC 10/11/17 23:10 324 MG Escitalopram Oxalate (Lexapro Tab) 10 mg DAILY PO 10/12/17 09:00 10/13/17 12:06 DC 10/13/17 09:00 10 MG Lisinopril (Zestril Tab) 40 mg DAILY PO 10/12/17 09:00 11/11/17 08:59 Future Hold 10/14/17 07:30 40 MG Metoprolol Tartrate (Lopressor Tab) 12.5 mg BID PO 10/12/17 09:00 10/12/17 10:33 DC 10/12/17 08:24 12.5 MG Warfarin Sodium (Coumadin Tab) 5 mg DAILY@1600 PO 10/12/17 16:00 10/14/17 13:58 DC 10/13/17 16:29 5 MG Acetaminophen (Tylenol Tab) 650 mg Q4H PRN PO 10/12/17 01:00 11/11/17 00:59 10/14/17 04:02 650 MG Ondansetron HCl (Zofran Inj) 4 mg Q6H PRN IV 10/12/17 01:00 11/11/17 00:59 10/13/17 16:27 4 MG Aspirin (Ecotrin Tab) 81 mg QAM PO 10/12/17 09:00 11/11/17 08:59 10/15/17 08:44 81 MG Polyethylene (Miralax Powder Packet) 17 gm DAILY PRN PO 10/12/17 01:00 11/11/17 00:59 10/15/17 08:58 17 GM Metoprolol Tartrate (Lopressor Tab) 12.5 mg QAM STAT PO 10/12/17 03:26 10/12/17 03:33 DC 10/12/17 04:21 12.5 MG Furosemide 40 mg/ Syringe 4 ml @ 4 mls/min ONE ONCE IV 10/12/17 03:45 10/12/17 03:46 DC 10/12/17 04:05 4 MLS/MIN Metoprolol Tartrate (Lopressor Tab) 12.5 mg Q6 PO 10/12/17 12:00 11/11/17 08:59 Future Hold 10/14/17 00:11 12.5 MG Furosemide 40 mg/ Syringe 4 ml @ 4 mls/min BID17 IV 10/12/17 17:00 10/13/17 08:53 DC 10/12/17 17:10 4 MLS/MIN Pomalidomide (Pomalyst) 4 mg DAILY PO 10/13/17 09:00 11/12/17 08:59 10/14/17 07:28 4 MG Furosemide 20 mg/ Syringe 2 ml @ 4 mls/min BID IV 10/13/17 09:00 10/14/17 08:03 DC 10/13/17 10:25 4 MLS/MIN Amiodarone HCL/ Dextrose 100 ml @ 600 mls/hr 1215 IV 10/13/17 12:15 10/13/17 12:24 DC 10/13/17 13:22 600 MLS/HR Amiodarone HCL/ Dextrose 200 ml @ 33.3 mls/hr Q6H1M IV 10/13/17 12:25 10/13/17 18:25 DC 10/13/17 13:25 33.3 MLS/HR Amiodarone HCL/ Dextrose 200 ml @ 16.7 mls/hr [id number] IV 10/13/17 18:25 10/14/17 08:00 DC 10/14/17 07:24 16.7 MLS/HR Ipratropium [place] (Atrovent 0.02% 0.5MG/2.5ML Neb) 0.5 mg ONE ONCE INH 10/13/17 19:30 10/13/17 19:31 DC 10/13/17 19:30 0.5 MG Levalbuterol (Xopenex 1.25MG/ 0.5ML Neb) 1.25 mg ONE ONCE INH 10/13/17 19:30 10/13/17 19:31 DC 10/13/17 19:30 1.25 MG Levalbuterol (Xopenex 1.25MG/ 0.5ML Neb) 1.25 mg Q4H PRN INH 10/13/17 19:30 10/14/17 11:00 DC 10/14/17 04:24 1.25 MG Vancomycin HCl 2250 mg/Sodium Chloride 545 ml @ 200 mls/hr NOW ONCE IV 10/14/17 02:30 10/14/17 05:13 DC 10/14/17 02:30 200 MLS/HR Piperacillin Sod/ Tazobactam Sod 4.5 gm/Dextrose 120 ml @ 200 mls/hr NOW STAT IV 10/14/17 01:53 10/14/17 02:28 DC 10/14/17 01:53 200 MLS/HR Piperacillin Sod/ Tazobactam Sod 4.5 gm/Dextrose 120 ml @ 30 mls/hr Q8H IV 10/14/17 08:00 10/21/17 07:59 10/15/17 08:48 30 MLS/HR Potassium Chloride/Sodium Chloride 500 ml @ 100 mls/hr Q5H ONCE IV 10/14/17 10:45 10/14/17 15:44 DC 10/14/17 11:32 100 MLS/HR Dexamethasone Sodium Phosphate 10 mg/Syringe 2.5 ml @ 1 mls/min TODAY@1115 ONCE IV 10/14/17 11:15 10/14/17 11:17 DC 10/14/17 11:32 1 MLS/MIN Levalbuterol (Xopenex 1.25MG/ 3ML Neb) 1.25 mg Q4R INH 10/14/17 11:00 10/14/17 15:06 DC 10/14/17 11:26 1.25 MG Vancomycin HCl 1500 mg/Sodium Chloride 530 ml @ 200 mls/hr Q16H IV 10/14/17 16:00 10/21/17 15:59 10/15/17 08:43 200 MLS/HR Benzonatate (Tessalon Perles Cap) 200 mg TID PO 10/14/17 14:00 11/13/17 13:59 10/15/17 08:46 200 MG Warfarin Sodium (Coumadin Tab) 2.5 mg SuTuWeFrSa@1600 PO 10/14/17 16:00 11/13/17 15:59 10/14/17 16:44 2.5 MG Levalbuterol (Xopenex 1.25MG/ 3ML Neb) 1.25 mg Q4RWA INH 2/2/18 16:00 11/13/17 10:59 10/15/17 07:41 1.25 MG Amiodarone HCl (Cordarone Tab) 400 mg BID PO 10/14/17 21:00 11/13/17 20:59 10/15/17 08:44 400 MG Hydrocortisone Sodium Succinate 50 mg/Syringe 1 ml @ 4 mls/min TID IV 10/15/17 09:00 11/14/17 08:59 10/15/17 08:44 4 MLS/MIN Subjective Mr. Ochoa is feeling a little bit better today. He's being treated for a pneumonia now. He had a syncopal event a few days ago, in the context of coughing, but has not had any similar issue since. Review of Systems: Constitutional: No fatigue Respiratory: + shortness of breath, No cough Cardiovascular: No chest pain Abdomen: No pain, No nausea Musculoskeletal: No joint pain, No muscle pain Heme: No abnormal bleeding/bruising Vital Signs Vital Signs Past 12 Hours Date Time Temp Pulse Resp B/P (MAP) Pulse Ox O2 Delivery O2 Flow Rate FiO2 10/15/17 08:07 36.6 90 18 121/72 (88) 98 Room Air 10/15/17 07:41 90 15 98 Room Air 10/15/17 04:00 Room Air 10/15/17 03:34 36.6 70 22 105/66 (79) 98 CPAP 10/15/17 00:00 36.6 69 18 102/64 (77) 97 Room Air 10/15/17 00:00 Room Air Physical Exam Constitutional: General Apperance: heathly-appearing Level of Distress: NAD Psychiatric: Mental Status: active & alert Orientation: oriented except where noted Lungs: Auscuitation: deminished air movement (bilaterally), rales/crackles on the left Cardiovascular: Heart Auscultation: pertinent finding (irregularly irregular rhythm) Abdomen: Inspection & Palpation: soft, no tenderness, guarding & rebound Extremities: no edema Laboratory Last 24 Hours Test 10/14/17 13:40 10/15/17 07:34 White Blood Count 2.97 K/uL Red Blood Count 3.52 M/uL Hemoglobin 12.4 g/dL Hematocrit 35.6 % Mean Corpuscular Volume 101.1 fL Mean Corpuscular Hemoglobin 35.2 pg Mean Corpuscular Hemoglobin Concent 34.8 g/dl RDW Standard Deviation 55.2 fL RDW Coefficient of Variation 15.3 % Platelet Count 114 K/uL Mean Platelet Volume 10.1 fL Prothrombin Time 38.1 SECONDS Prothromb Time International Ratio 3.7 Sodium Level 136 mmol/L Potassium Level 3.9 mmol/L Chloride Level 103 mmol/L Carbon Dioxide Level 26 mmol/L Anion Gap 7.0 mmol/L Blood Urea Nitrogen 35 mg/dl Creatinine 2.60 mg/dl Est Creatinine Clear Calc Drug Dose 42.5 ml/min Estimated GFR () 32.6 Estimated GFR (Non- 28.1 BUN/Creatinine Ratio 13.3 Random Glucose 163 mg/dl Calcium Level 8.6 mg/dl Assessment & Plan Mr. Ochoa looks a bit better today. This is the off-week for his pomalidomide and so he will hold it starting today. It's interesting that the decline in his cardiac status seems to coincide with initiation of the Pom/Dex. As I noted in my initial consult, cardiac toxicities have been documented with pomalidomide, but they are rare. He seems to recall that he had palpitations and arrhythmias in the past when he got high-dose steroids. We may want to consider altering his treatment regimen to see if that impacts his cardiac function. I will note that he only gets once weekly dosing of steroids and, while the dose is high, it is unusual to see suppression of the adrenal axis with this therapy.
--- NOTE | 2017-10-15 09:40 | Family Medicine Progress Note ---
Progress Note Date of Service Oct 15, 2017. Subjective reports that shortness of breath is improved reports that he has been cough up phlegm Constitutional: No fever, No chills Respiratory: + cough, + sputum, No shortness of breath, No dyspnea on exertion Cardiovascular: No chest pain Abdomen: No pain, No nausea, No vomiting Male : No dysuria, No urinary frequency Objective Physical Exam General Appearance: no apparent distress Eyes: PERRL, EOMI ENT: hearing grossly normal Neck: supple, no JVD Respiratory/Chest: no respiratory distress, no accessory muscle use, + decreased breath sounds Cardiovascular: regular rate, rhythm, no murmur Abdomen: normal bowel sounds, non tender, soft Extremities: non-tender, no pedal edema, no calf tenderness Neurologic/Psychiatric: alert, normal mood/affect, oriented x 3 Assessment and Plan 47 y/o M Hx multiple myeloma, grade II diastolic dysfunction, paroxysmal AF, DEBBY , CKD II. Pt presented with progressive exertional SOB and intermittent CP. Has found to be shown in Diastolic CHF with atrial tachycardia. 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) - CT showed moderate bilateral pleural effusions - diuresis currently held secondary to decreased urine output and bump in BUN and creatinine - monitor I/O's - Repeat Xray this morning shows mild pleural effusions, maybe slight worsening Atrial Flutter/Atrial Fibrillation - found to be in aflutter on admission - metoprolol held secondary to low heart rate and BP - amiodarone PO currently - plan for outpatient ablation - troponin downtrended - currently anticoagulated with warfarin, INR 3.7- hold tomorrow's dose of 2.5 mg- recheck AM Syncope/hypotension- no further episodes - not associated with Arrythmia episodes, tends to be associated with coughing - vagal episodes vs hypoxia from coughing? - B/p improved- possibly from the steroids. Multiple Myeloma - Oncology consulted - On Pomalidomide through oncology - Had stem cell transplant 20 months ago - question if meds causing cardiac S/E's? - Hydrocortisone initiated- taper to BID - receives 20mg weekly at home of Decadron Hypertension - lisinopril held secondary to ARSENIO - BP adequately controlled Depression - continue lexapro ARSENIO on CKD II - creatinine bumped to 2.6 - diuresis held and patient given 500ml this morning - we will trend AM DEBBY - will provide a CPAP DVT - warfarin Full Code Resident Physician Supervision Note: I was present with during the history and exam. I discussed the case with the resident and agree with the findings and plan as documented in the note. Looks improved compared to yesterday. Seated on bed, conversational, no CPAP. Steroids added yesterday partly due to possibility of adrenal suppression but also as treatment for suspect reactive airway disease. PLAN 1) Continue resp therapy (Xoponex). 2) Taper steroids. 3) CXR in AM 4) Droplet precautions until pertussis swab resulted. Documented By: Delfin Serrano
[2017-10-15] MEDS ORDERED: SODIUM CHLORIDE 0.9% 500ML 500 ML IV SCH (09:45)
--- NOTE | 2017-10-15 11:05 | DIAGNOSTIC IMAGING REPORT ---
CHEST 2 VIEWS ROUTINE CLINICAL HISTORY: Dyspnea. COMPARISON STUDY: Chest CT October 12, 2017 and chest radiograph October 13, 2017. FINDINGS: There are are trace bilateral pleural effusions. Cardiomegaly is unchanged. There is no pneumothorax. Mild interstitial thickening suggest pulmonary edema. Mild right lower lung airspace opacity is increased. IMPRESSION: 1. No significant change in mild interstitial pulmonary edema. 2. Slight increase in right lower lung which could reflect pulmonary edema or a superimposed infectious process. 3. Trace bilateral pleural effusions. Electronically signed by: Jamal River M.D. 10/15/2017 11:04 AM Dictated Date/Time: 10/15/2017 11:02 AM
--- NOTE | 2017-10-15 14:22 | PULMONARY PROGRESS NOTE ---
DATE: 10/15/2017 TIME: 01:45 p.m. SUBJECTIVE: The patient is feeling better today. He is less short of breath. His cough is a little better controlled. This may be because he is on the benzonatate Perles. He did have some dizziness and lightheadedness this morning in the x-ray department. He was not coughing at that time, however. His fevers have improved. OBJECTIVE: GENERAL: The patient appeared comfortable. He did not cough during this exam. VITAL SIGNS: Temperature is 36.4. He has not had a temperature elevation since yesterday afternoon. The peak temperature yesterday was 38 degrees. The patient's heart rate is 75 per minute. The rhythm is regular. The blood pressure most recently was 97/59. Earlier today, it had been 121/72. CHEST: Respiratory rate is 16 breaths per minute. He still has a mild wheeze and rhonchi, greater on the left than the right. Saturation was 97% reportedly on a nasal cannula, but was not specified how much. When I was in the room, he did not have any oxygen on at all. Earlier, his sats had been 93% on room air. EXTREMITIES: Showed no cyanosis, clubbing or edema. IMPRESSIONS: 1. Patchy pneumonia, mainly involving the left lung. 2. Bilateral pleural effusions -- small. 3. Obstructive sleep apnea -- wears nasal CPAP. 4. Diastolic congestive heart failure. 5. Multiple myeloma. 6. Tussive syncope. RECOMMENDATIONS: The patient is clinically much improved. He is still getting the levalbuterol treatments. He is on the Tessalon Perles. He is on Zosyn. Would continue the above in light of his clinical improvement.
[2017-10-15] MEDS: WARFARIN SOD 2.5 MG TAB PO SCH (17:04)
[2017-10-15] MEDS: ACETAMINOPHEN 325 MG TAB PO PRN (19:21)
[2017-10-15] MEDS: HYDROCORTISONE IV 50 MG in SYRINGE 0 ML IV SCH (19:23)
[2017-10-15] MEDS ORDERED: VANCOMYCIN TROUGH ONE (23:30)
[2017-10-16] VITALS (11 sets, daily range): BP systolic 120–148; BP diastolic 53–83; PULSE 65–73; TEMP 36.4–36.9; O2SAT 92–97
[2017-10-16 07:13] LABS: INR 4.4 (0.9-1.1)
[2017-10-16 07:21] LABS: CREATININE 1.96 mg/dl (0.60-1.40)
[2017-10-16] MEDS: LEVALBUTEROL 1.25MG/3ML NEB INH SCH ×4 (07:52→19:42)
[2017-10-16] MEDS: BENZONATATE 100MG CAP PO SCH ×3 (08:32→20:06)
[2017-10-16] MEDS: AMIODARONE 200 MG TAB PO SCH ×2 (08:33→20:06)
[2017-10-16] MEDS: HYDROCORTISONE IV 50 MG in SYRINGE 0 ML IV SCH ×2 (08:33→20:10)
[2017-10-16] MEDS: ASPIRIN 81 MG ECTAB PO SCH (08:34)
[2017-10-16] MEDS: POMALIDOMIDE 4 MG PO SCH (08:34)
[2017-10-16] MEDS: PIPERACILL/TAZOBAC IV 4.5 GM in DEXTROSE 5% 100ML IV SCH ×3 (08:36→23:26)
--- NOTE | 2017-10-16 09:32 | Family Medicine Progress Note ---
Progress Note Date of Service Oct 16, 2017. Subjective Pt evaluation today including: conversation w/ patient Patient reports breathing is okay- not great He also reports that he feels overall not well. He wonders why his lexapro was stopped abruptly few days ago. And says that might be contributing to his symptoms. Last night he was in bed and had an episode where he "blacked out." He was advised by the nurse that there were no abnormalities on monitor. Constitutional: No fever, No chills Eyes: No worsening of vision ENT: No hearing loss Respiratory: + cough, + sputum, + shortness of breath, + dyspnea on exertion , No wheezing Cardiovascular: No chest pain Abdomen: No pain, No nausea Male : No dysuria, No urinary frequency Medications Medications (Trade) Dose Ordered Sig/Garcia Route Start Time Stop Time Status Last Admin Dose Admin Hydrocortisone Sodium Succinate 50 mg/Syringe 1 ml @ 4 mls/min Q12@0800,1999 IV 10/15/17 20:00 11/14/17 19:59 10/16/17 08:33 4 MLS/MIN Escitalopram Oxalate (Lexapro Tab) 10 mg QAM PO 10/16/17 09:45 11/15/17 09:44 10/16/17 10:11 10 MG Objective Vital Signs Vital Signs Past 12 Hours Date Time Temp Pulse Resp B/P (MAP) Pulse Ox O2 Delivery O2 Flow Rate FiO2 10/16/17 15:19 70 16 97 Room Air 10/16/17 12:00 Room Air 10/16/17 11:31 36.5 67 18 131/83 (99) 96 10/16/17 11:27 68 16 95 Room Air 10/16/17 08:06 36.4 65 18 120/72 (88) 95 Room Air 10/16/17 08:00 Room Air 10/16/17 07:52 66 16 95 Room Air 10/16/17 04:00 CPAP 2.0 Physical Exam General Appearance: no apparent distress Eyes: PERRL, EOMI ENT: hearing grossly normal Neck: supple, no JVD Respiratory/Chest: no respiratory distress, no accessory muscle use, + rhonchi Cardiovascular: regular rate, rhythm, no edema, no murmur Abdomen: normal bowel sounds, non tender, soft Extremities: non-tender, normal inspection, no pedal edema, no calf tenderness Neurologic/Psychiatric: alert, + depressed affect Laboratory Results Last 24 Hours Test 10/16/17 06:18 10/16/17 11:37 Prothrombin Time 45.1 SECONDS Prothromb Time International Ratio 4.4 Creatinine 1.96 mg/dl Est Creatinine Clear Calc Drug Dose 56.6 ml/min Estimated GFR () 45.8 Estimated GFR (Non- 39.6 Lactate Dehydrogenase 222 U/L Immunoglobulin G 374.0 mg/dL Immunoglobulin A 100.0 mg/dL Immunoglobulin M 8.8 mg/dL Assessment and Plan 47 y/o M Hx multiple myeloma, grade II diastolic dysfunction, paroxysmal AF, DEBBY , CKD II. Pt presented with progressive exertional SOB and intermittent CP. Initially found to have diastolic CHF and then HAP. Some improvement with respiratory status. 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 Hold dose tomorrow as well. Recheck INR Syncope/hypotension- no further episodes - not associated with Arrhythmia episodes, tends to be associated with coughing - vagal episodes vs hypoxia from coughing? - B/p improved- possibly from the steroids. Multiple Myeloma - Oncology consulted - On Pomalidomide through oncology - Had stem cell transplant 20 months ago - question if meds causing cardiac S/E's? - Stress doses of Hydrocortisone initiated- D/C tomorrow AM - receives 20mg weekly at home of Decadron Hypertension - lisinopril held secondary to ARSENIO - BP adequately controlled Depression - Lexapro restarted - Unsure why this was held on admission ARSENIO on CKD II - creatinine down to 1.9- improving - Continue to trend - Bolus nss 250-500 ml if worsening renal function. DEBBY - will provide a CPAP DVT - warfarin held Full Code Resident Physician Supervision Note: I interviewed and examined the patient. Discussed with Dr. Rodriguez and agree with findings and plan as documented in the note. Ute a little worse this morning - non specific complaint. Seated on bed, conversational. CV regular upon my exam Lungs essentially clear, no wheezing appreciated. PLAN 1) Continue resp therapy (Xoponex). 2) Taper steroids. 3) Restart Lexapro. 4) Droplet precautions until pertussis swab resulted. 5) Appreciate input of specialists. Documented By: Delfin Serrano
[2017-10-16] MEDS: ESCITALOPRAM OXALATE 10 MG TAB PO SCH (10:11)
--- NOTE | 2017-10-16 11:19 | Hematology/Oncology Prog Note ---
Hematology/Onc Progress Note Date of Service Oct 16, 2017. Diagnoses Lambda light chain myeloma Diastolic heart failure Medications Medications Administered Medications (Trade) Dose Ordered Sig/Garcia Route Start Time Stop Time Status Last Admin Dose Admin Aspirin (Aspirin Chew) 324 mg NOW STAT PO 10/11/17 22:57 10/11/17 22:58 DC 10/11/17 23:10 324 MG Escitalopram Oxalate (Lexapro Tab) 10 mg DAILY PO 10/12/17 09:00 10/13/17 12:06 DC 10/13/17 09:00 10 MG Lisinopril (Zestril Tab) 40 mg DAILY PO 10/12/17 09:00 11/11/17 08:59 Future Hold 10/14/17 07:30 40 MG Metoprolol Tartrate (Lopressor Tab) 12.5 mg BID PO 10/12/17 09:00 10/12/17 10:33 DC 10/12/17 08:24 12.5 MG Warfarin Sodium (Coumadin Tab) 5 mg DAILY@1600 PO 10/12/17 16:00 10/14/17 13:58 DC 10/13/17 16:29 5 MG Acetaminophen (Tylenol Tab) 650 mg Q4H PRN PO 10/12/17 01:00 11/11/17 00:59 10/15/17 19:21 650 MG Ondansetron HCl (Zofran Inj) 4 mg Q6H PRN IV 10/12/17 01:00 11/11/17 00:59 10/13/17 16:27 4 MG Aspirin (Ecotrin Tab) 81 mg QAM PO 10/12/17 09:00 11/11/17 08:59 10/16/17 08:34 81 MG Polyethylene (Miralax Powder Packet) 17 gm DAILY PRN PO 10/12/17 01:00 11/11/17 00:59 10/15/17 08:58 17 GM Metoprolol Tartrate (Lopressor Tab) 12.5 mg QAM STAT PO 10/12/17 03:26 10/12/17 03:33 DC 10/12/17 04:21 12.5 MG Furosemide 40 mg/ Syringe 4 ml @ 4 mls/min ONE ONCE IV 10/12/17 03:45 10/12/17 03:46 DC 10/12/17 04:05 4 MLS/MIN Metoprolol Tartrate (Lopressor Tab) 12.5 mg Q6 PO 10/12/17 12:00 11/11/17 08:59 Future Hold 10/14/17 00:11 12.5 MG Furosemide 40 mg/ Syringe 4 ml @ 4 mls/min BID17 IV 10/12/17 17:00 10/13/17 08:53 DC 10/12/17 17:10 4 MLS/MIN Pomalidomide (Pomalyst) 4 mg DAILY PO 10/13/17 09:00 11/12/17 08:59 10/14/17 07:28 4 MG Furosemide 20 mg/ Syringe 2 ml @ 4 mls/min BID IV 10/13/17 09:00 10/14/17 08:03 DC 10/13/17 10:25 4 MLS/MIN Amiodarone HCL/ Dextrose 100 ml @ 600 mls/hr 1215 IV 10/13/17 12:15 10/13/17 12:24 DC 10/13/17 13:22 600 MLS/HR Amiodarone HCL/ Dextrose 200 ml @ 33.3 mls/hr Q6H1M IV 10/13/17 12:25 10/13/17 18:25 DC 10/13/17 13:25 33.3 MLS/HR Amiodarone HCL/ Dextrose 200 ml @ 16.7 mls/hr [id number] IV 10/13/17 18:25 10/14/17 08:00 DC 10/14/17 07:24 16.7 MLS/HR Ipratropium Lynn (Atrovent 0.02% 0.5MG/2.5ML Neb) 0.5 mg ONE ONCE INH 10/13/17 19:30 10/13/17 19:31 DC 10/13/17 19:30 0.5 MG Levalbuterol (Xopenex 1.25MG/ 0.5ML Neb) 1.25 mg ONE ONCE INH 10/13/17 19:30 10/13/17 19:31 DC 10/13/17 19:30 1.25 MG Levalbuterol (Xopenex 1.25MG/ 0.5ML Neb) 1.25 mg Q4H PRN INH 10/13/17 19:30 10/14/17 11:00 DC 10/14/17 04:24 1.25 MG Vancomycin HCl 2250 mg/Sodium Chloride 545 ml @ 200 mls/hr NOW ONCE IV 10/14/17 02:30 10/14/17 05:13 DC 10/14/17 02:30 200 MLS/HR Piperacillin Sod/ Tazobactam Sod 4.5 gm/Dextrose 120 ml @ 200 mls/hr NOW STAT IV 10/14/17 01:53 10/14/17 02:28 DC 10/14/17 01:53 200 MLS/HR Piperacillin Sod/ Tazobactam Sod 4.5 gm/Dextrose 120 ml @ 30 mls/hr Q8H IV 10/14/17 08:00 10/21/17 07:59 10/16/17 08:36 30 MLS/HR Potassium Chloride/Sodium Chloride 500 ml @ 100 mls/hr Q5H ONCE IV 10/14/17 10:45 10/14/17 15:44 DC 10/14/17 11:32 100 MLS/HR Dexamethasone Sodium Phosphate 10 mg/Syringe 2.5 ml @ 1 mls/min TODAY@1115 ONCE IV 10/14/17 11:15 10/14/17 11:17 DC 10/14/17 11:32 1 MLS/MIN Levalbuterol (Xopenex 1.25MG/ 3ML Neb) 1.25 mg Q4R INH 10/14/17 11:00 10/14/17 15:06 DC 10/14/17 11:26 1.25 MG Vancomycin HCl 1500 mg/Sodium Chloride 530 ml @ 200 mls/hr Q16H IV 10/14/17 16:00 10/15/17 10:10 DC 10/15/17 08:43 200 MLS/HR Benzonatate (Tessalon Perles Cap) 200 mg TID PO 10/14/17 14:00 11/13/17 13:59 10/16/17 08:32 200 MG Warfarin Sodium (Coumadin Tab) 2.5 mg SuTuWeFrSa@1600 PO 10/14/17 16:00 11/13/17 15:59 Future Hold 10/15/17 17:04 2.5 MG Levalbuterol (Xopenex 1.25MG/ 3ML Neb) 1.25 mg Q4RWA INH 2/2/18 16:00 11/13/17 10:59 10/16/17 07:52 1.25 MG Amiodarone HCl (Cordarone Tab) 400 mg BID PO 10/14/17 21:00 11/13/17 20:59 10/16/17 08:33 400 MG Hydrocortisone Sodium Succinate 50 mg/Syringe 1 ml @ 4 mls/min TID IV 10/15/17 09:00 10/15/17 10:37 DC 10/15/17 08:44 4 MLS/MIN Sodium Chloride 500 ml @ 999 mls/hr Q31M IV 10/15/17 09:45 10/15/17 10:15 DC 10/15/17 09:45 999 MLS/HR Hydrocortisone Sodium Succinate 50 mg/Syringe 1 ml @ 4 mls/min Q12@0800,2000 IV 10/15/17 20:00 11/14/17 19:59 10/16/17 08:33 4 MLS/MIN Escitalopram Oxalate (Lexapro Tab) 10 mg QAM PO 10/16/17 09:45 11/15/17 09:44 10/16/17 10:11 10 MG Subjective Continues to have shortness of breath. He states he can hear himself wheeze. He stated that last night he was coughing and felt that he had blacked out. He reviews with me that this is happened to him on 3 or 4 occasions over the past 6 or 8 weeks. He states he has a fullness in his chest that he describes as a pain or discomfort seems to be bilateral lower chest and more in tune with his breathing. Review of Systems: Constitutional: Negative for night sweats, or fever Eyes: Negative for event change of vision ENT: Negative for epistaxis, nasal discharge, sore throat, or deafness Cardiovascular: Positive for chest pain as stated above. He also states he feels palpitations. He states he has felt these in the past when he has taken Decadron. Respiratory: Continues to be short of breath with any exertion. Gastrointestinal: Negative for diarrhea, hematemesis, melena, nausea, vomiting , or dyspepsia Integumentary (skin): Negative for rash or jaundice discoloration Genitourinary: Negative for urinary frequency, hematuria, or dysuria Neurological: Negative for weakness, seizure activity, headache, or dizziness Lymphatic/Hematologic: Negative for petechiae, bleeding or new adenopathy Musculoskeletal: Negative for new joint or back pain Allergic/Immunologic: Negative for unusual rash or pruritis. Vital Signs Vital Signs Past 12 Hours Date Time Temp Pulse Resp B/P (MAP) Pulse Ox O2 Delivery O2 Flow Rate FiO2 10/16/17 08:06 36.4 65 18 120/72 (88) 95 Room Air 10/16/17 08:00 Room Air 10/16/17 07:52 66 16 95 Room Air 10/16/17 04:00 CPAP 2.0 10/16/17 03:30 36.5 66 20 129/74 (92) 97 Room Air 10/16/17 00:01 CPAP 2.0 10/15/17 23:23 36.8 61 16 126/72 (90) 98 CPAP 2.0 Physical Exam Constitutional: vitals are stable. Obese pleasant gentleman Eyes: Eyes are EMMY EOMI without conjuctival erythema or icterus. ENT: External examination was negative for masses. Neck: Negative for masses or palpable thyromegaly Respiratory: Diffuse bilateral expiratory wheezing noted Cardiovascular: Heart was IRRR with a soft systolic murmur. Gastrointestinal: No palpable hepatic or splenomegaly. The abdomen was soft with normal bowel sounds. Lymphatic system: there was no palpable peripheral lymphadenopathy Musculoskeletal System: The musculoskeletal system seemed concordant with age. Skin: The skin was negative for jaundice. Neurologic exam: The exam was negative for any focal findings. Deep tendon reflexes were equal and symmetrical. Psychiatric exam: Was essentially negative with normal mood and effect. Extremities: Negative for significant edema erythema Constitutional: General Apperance: heathly-appearing Level of Distress: NAD Psychiatric: Mental Status: active & alert Orientation: oriented except where noted Lungs: Auscuitation: deminished air movement (bilaterally), rales/crackles on the left Cardiovascular: Heart Auscultation: pertinent finding (irregularly irregular rhythm) Abdomen: Inspection & Palpation: soft, no tenderness, guarding & rebound Extremities: no edema Laboratory Last 24 Hours Test 10/16/17 06:18 10/16/17 11:11 10/16/17 11:12 Prothrombin Time 45.1 SECONDS Prothromb Time International Ratio 4.4 Creatinine 1.96 mg/dl Est Creatinine Clear Calc Drug Dose 56.6 ml/min Estimated GFR () 45.8 Estimated GFR (Non- 39.6 Assessment & Plan Lambda light chain myeloma currently being treated post bone marrow transplant with pomalidomide and Decadron. I should note that he did have an echocardiogram done in June 2014 as he was being prepared for a stem cell transplant. This was done at [facility]. The left ventricle was felt to be in normal size and systolic function with no regional wall motion abnormalities ejection fraction of 65%. There was mild concentric left ventricular hypertrophy noted at that time. Right ventricle was felt to be of normal right ventricular size and function. There was moderate left atrial dilatation. The right atrium was felt to be normal. There was a comment about tiny mitral regurgitation. A potential question as to whether pomalidomide has contributed to his heart ailment has been considered. I really doubt that pomalidomide has affected his cardiac function particularly with an echo 3 years ago that demonstrated then unexplained mild LVH. He describes palpitatons in the past whenever he takes decadron. I am concerned that his light chain process is worsening. He reminds me that he has been on pomalidomide for at least 2 months. I will update the heavy and light assy. May have to think about alternate therapy regardless.
--- NOTE | 2017-10-16 13:15 | Cardiology Follow-Up ---
Subjective Date of Service: Oct 16, 2017. Pt evaluation today including: conversation w/ patient, conversation w/ family , physical exam, chart review, lab review, review of studies, review of inpatient medication list History of Present Illness Today the patient states that he just does not feel well. He states that he feels somewhat worse compared to yesterday. It is very difficult for him to characterize how he feels worse. Feels that his breathing is still improved overall but not at baseline. He is dyspneic just ambulating around the room. He has some mild dizziness associated with that activity. He is not aware of any palpitations. His appetite appears to be reasonable. His coughing is definitely improved. Social History Smoking Status: Never Smoker History of Alcohol Use: No Review of Systems Respiratory: + cough, + sputum, No shortness of breath, No dyspnea on exertion Cardiac: No chest pain No recent constitutional symptoms such as fevers or chills. Some nonproductive cough Objective Vital Signs Past 12 Hours Date Time Temp Pulse Resp B/P (MAP) Pulse Ox O2 Delivery O2 Flow Rate FiO2 10/16/17 12:00 Room Air 10/16/17 11:31 36.5 67 18 131/83 (99) 96 10/16/17 11:27 68 16 95 Room Air 10/16/17 08:06 36.4 65 18 120/72 (88) 95 Room Air 10/16/17 08:00 Room Air 10/16/17 07:52 66 16 95 Room Air 10/16/17 04:00 CPAP 2.0 10/16/17 03:30 36.5 66 20 129/74 (92) 97 Room Air Last Recorded Weight-Kilograms: 108.800 Physical Exam The patient is alert and oriented. He was not in any acute distress this morning. He answered all questions appropriately. Neuro: Cranial nerves intact Lungs: Some coarse upper airway sounds and occasional crackle in the left base. Some expiratory wheezing. Cardiac: Heart demonstrates a regular rate and rhythm. Normal S1 and S2. No murmurs on examination. Pulses: The patient has palpable radial pulses bilaterally that are equal in intensity Extremities: There was no evidence of hypoperfusion. Skin: I did not appreciate any rashes on examination today. Data Laboratory Results: Last 24 Hours Test 10/16/17 06:18 10/16/17 11:37 Prothrombin Time 45.1 SECONDS Prothromb Time International Ratio 4.4 Creatinine 1.96 mg/dl Est Creatinine Clear Calc Drug Dose 56.6 ml/min Estimated GFR () 45.8 Estimated GFR (Non- 39.6 Lactate Dehydrogenase 222 U/L Imaging: X-ray obtained today suggests perhaps an element of pulmonary edema involving the right lung. Assessment and Plan 1. Acute decompensated diastolic heart failure: He may have a touch of pulmonary vascular congestion, but I think this is mild if it exists at all. I think I will order an N terminal proBNP for tomorrow morning compare this with the 1 obtained on admission. His lung examination is certainly not normal but he clearly has an infectious process as well. His renal function declined slightly which makes me less enthusiastic about aggressive diuresis.. 2. Atrial fibrillation and flutter: Overall improved. We made the decision to pursue outpatient catheter based therapy. In the interim he was started on amiodarone and has been switched to an oral regimen. Overall episodes are reduced in frequency and duration. This may be related to the amiodarone or simply improvement in his clinical condition. He should continue on warfarin indefinitely. His metoprolol has been put on hold given his relative hypotension a few days ago. I think this is reasonable given the fact we have seen last atrial fibrillation and is currently on amiodarone. 3. Elevated troponin: Now normal 4. Left ventricular hypertrophy: This is of unclear etiology. Blood pressures been well controlled. His overall heart rates are well controlled on metoprolol. He still continues to have elements of tachycardia with atrial fibrillation. This may improve with amiodarone therapy as well. We need to be cautious regarding dehydration as this will compromise his ventricular function even more. 5. Syncope: This appears to be related to his coughing. None recently. His cough is improved. 6. Dyspnea: This appears to be multifactorial. Initially contribution from pulmonary vascular congestion which I believe has resolved. He is not being treated for broncho pneumonia and has had some improvement on the current medical regimen. 7. Acute kidney injury: Possibly an element of prerenal azotemia and ATN given his transient hypotension yesterday. Diuretics are being held. Hopefully we will see some gradual improvement in this function over the next day or 2.
--- NOTE | 2017-10-16 14:16 | PULMONARY PROGRESS NOTE ---
DATE: 10/16/2017 TIME: 1:15 p.m. SUBJECTIVE: The patient states he feels "off" today. He thinks it may be because his Lexapro was stopped. He thinks he has gone into some withdrawal symptoms in the past with this. In general, his cough has been less. He awakened during the night with a feeling that he had passed out again. He does not remember coughing at that point in time, but he assumes he was coughing. He apparently gets vertigo after the episodes. That would be a little unusual for straightforward tussive syncope. He is still coughing some. He coughed a little bit of blood in his mucus this morning. This was witnessed by nursing and they sent it to the lab. He does not feel short of breath. OBJECTIVE: GENERAL: The patient appears comfortable. He was perhaps slightly anxious. Temperature was 36.5. He has not had any fevers for about 48 hours. EARS, NOSE, THROAT: Exam is unremarkable. VITAL SIGNS: Heart rate was 67. The rhythm is regular. Blood pressure 131/83. Oxygen saturation is 96% on room air. RESPIRATORY: He does have some rhonchi heard today bilaterally. These are more prominent than yesterday. Respiratory rate was 18 breaths per minute. EXTREMITIES: Showed no edema. LABORATORY DATA: INR today is elevated at 4.4. Creatinine today is 1.96, which would be better than yesterday when it was 2.60. His IgG level is low. This measures only 374. The normals are 700-1600. The IgM level was low at 8.8. The reference would be 40-230. The IgA level was 100, which would be within the limits of normal. It is unknown if the decreased IgG and IgM are related to his myeloma or not. IMPRESSIONS: 1. Left-sided pneumonia as noted on CT. 2. Bilateral pleural effusions -- small. 3. Obstructive sleep apnea. 4. Diastolic congestive heart failure. 5. Tussive syncope. 6. Multiple myeloma. 7. 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 COMMENTS AND RECOMMENDATIONS: The patient seems to be doing reasonably well. He does not feel quite right today, but he thinks it made from the Lexapro being stopped. I would continue with the Zosyn as ordered. I would continue with the levalbuterol treatments. I would be curious to know the opinion of oncology regarding the low immunoglobulins. We will follow him for another day or two. Continue the Nadyasalon Isela for now in light of the episodes of tussive syncope.
[2017-10-16] MEDS: ONDANSETRON INJ 2 MG/ML 2 ML VIAL IV PRN (16:33)
[2017-10-17] VITALS (10 sets, daily range): BP systolic 102–149; BP diastolic 57–83; PULSE 59–103; TEMP 36.5–36.8; O2SAT 91–96
[2017-10-17 06:27] LABS: INR 3.7 (0.9-1.1)
[2017-10-17 06:49] LABS: CALCIUM 8.9 mg/dl (8.5-10.1); CREATININE 1.91 mg/dl (0.60-1.40); POTASSIUM 4.5 mmol/L (3.5-5.1)
--- NOTE | 2017-10-17 07:30 | Family Medicine Progress Note ---
Progress Note Date of Service Oct 17, 2017. Subjective Pt evaluation today including: conversation w/ patient, physical exam, chart review, review of studies, conversation w/ solutions sales consultant, review of inpatient medication list Pain: none PO Intake: good Voiding: no voiding problems Patient feels about the same today Does not some numbness along his left quad, this is new for him Still has a productive cough and feels short of breath with exertion Constitutional: No fever, No chills Respiratory: + cough, + sputum, + shortness of breath, + dyspnea on exertion , No hemoptysis Cardiovascular: No chest pain, No edema, No palpitations Abdomen: No pain, No nausea, No vomiting, No diarrhea, No constipation Musculoskeletal: No joint pain, No muscle pain, No swelling Male : No dysuria, No urinary frequency Medications Current Inpatient Medications Medications (Trade) Dose Ordered Sig/Garcia Route Start Time Stop Time Status Last Admin Dose Admin Lisinopril (Zestril Tab) 40 mg DAILY PO 10/12/17 09:00 11/11/17 08:59 Future Hold 10/14/17 07:30 40 MG Pantoprazole Sodium (Protonix Tab) 40 mg DAILY PRN PO 10/12/17 00:15 11/11/17 00:14 Acetaminophen (Tylenol Tab) 650 mg Q4H PRN PO 10/12/17 01:00 11/11/17 00:59 10/15/17 19:21 650 MG Al Hydrox/Mg Hydrox/Simethicone (Maalox Max Susp) 15 ml Q4H PRN PO 10/12/17 01:00 11/11/17 00:59 Magnesium Hydroxide (Milk Of Magnesia Susp) 30 ml Q12H PRN PO 10/12/17 01:00 11/11/17 00:59 Zolpidem Tartrate (Ambien Tab) 5 mg HSZ PRN PO 10/12/17 01:00 11/11/17 00:59 Ondansetron HCl (Zofran Inj) 4 mg Q6H PRN IV 10/12/17 01:00 11/11/17 00:59 10/16/17 16:33 4 MG Aspirin (Ecotrin Tab) 81 mg QAM PO 10/12/17 09:00 11/11/17 08:59 10/16/17 08:34 81 MG Polyethylene (Miralax Powder Packet) 17 gm DAILY PRN PO 10/12/17 01:00 11/11/17 00:59 10/15/17 08:58 17 GM Miscellaneous (Iv Fluids Completed) 1 ea PRN PRN N/A 10/12/17 06:15 10/12/18 06:14 Metoprolol Tartrate (Lopressor Tab) 12.5 mg Q6 PO 10/12/17 12:00 11/11/17 08:59 Future Hold 10/14/17 00:11 12.5 MG Pomalidomide (Pomalyst) 4 mg DAILY PO 10/13/17 09:00 11/12/17 08:59 10/14/17 07:28 4 MG Miscellaneous Information (Consult) 1 ea UD PRN N/A 10/14/17 01:45 11/13/17 01:44 Piperacillin Sod/ Tazobactam Sod 4.5 gm/Dextrose 120 ml @ 30 mls/hr Q8H IV 10/14/17 08:00 10/21/17 07:59 10/16/17 23:26 30 MLS/HR Benzonatate (Tessalon Perles Cap) 200 mg TID PO 10/14/17 14:00 11/13/17 13:59 10/16/17 20:06 200 MG Warfarin Sodium (Coumadin Tab) 5 mg MoTh@1600 PO 10/17/17 16:00 11/16/17 15:59 Future Hold Warfarin Sodium (Coumadin Tab) 2.5 mg SuTuWeFrSa@1600 PO 10/14/17 16:00 11/13/17 15:59 Future Hold 10/15/17 17:04 2.5 MG Levalbuterol (Xopenex 1.25MG/ 3ML Neb) 1.25 mg Q4RWA INH 10/14/17 16:00 11/13/17 10:59 10/16/17 19:42 1.25 MG Amiodarone HCl (Cordarone Tab) 400 mg BID PO 10/14/17 21:00 11/13/17 20:59 10/16/17 20:06 400 MG Hydrocortisone Sodium Succinate 50 mg/Syringe 1 ml @ 4 mls/min Q12@0800,2000 IV 10/15/17 20:00 10/17/17 09:00 10/16/17 20:10 4 MLS/MIN Escitalopram Oxalate (Lexapro Tab) 10 mg QAM PO 10/16/17 09:45 11/15/17 09:44 10/16/17 10:11 10 MG Objective Vital Signs Date Time Temp Pulse Resp B/P (MAP) Pulse Ox O2 Delivery O2 Flow Rate FiO2 10/17/17 04:00 CPAP 10/17/17 03:55 36.7 62 16 106/57 (73) 93 CPAP 0.0 10/17/17 00:01 CPAP 10/16/17 23:21 36.9 69 18 127/64 (85) 92 CPAP 0.0 10/16/17 21:18 148/75 (99) 10/16/17 20:00 Room Air 10/16/17 19:42 68 16 96 Room Air 10/16/17 19:15 36.8 73 18 146/77 (100) 95 Room Air 10/16/17 16:00 36.6 66 20 134/53 (80) 94 CPAP 10/16/17 16:00 Room Air 10/16/17 15:19 70 16 97 Room Air 10/16/17 12:00 Room Air 10/16/17 11:31 36.5 67 18 131/83 (99) 96 10/16/17 11:27 68 16 95 Room Air 10/16/17 08:06 36.4 65 18 120/72 (88) 95 Room Air 10/16/17 08:00 Room Air 10/16/17 07:52 66 16 95 Room Air Physical Exam General Appearance: WD/WN, no apparent distress ENT: hearing grossly normal, pharynx normal Neck: supple, no JVD (difficult to visualize due to neck girth), no carotid bruits Respiratory/Chest: chest non-tender, no respiratory distress, no accessory muscle use, + crackles (LLL crackles) Cardiovascular: regular rate, rhythm, no edema, no murmur Abdomen: normal bowel sounds, non tender, soft Extremities: non-tender, no pedal edema, no calf tenderness, normal capillary refill Neurologic/Psychiatric: alert, normal mood/affect, oriented x 3 Laboratory Results Results Past 24 Hours Test 10/16/17 11:37 10/16/17 21:43 10/17/17 05:36 Range/Units Lactate Dehydrogenase 222 87-241 U/L Immunoglobulin G 374.0 700-1600 mg/dL Immunoglobulin A 100.0 70-400 mg/dL Immunoglobulin M 8.8 40-230 mg/dL Potassium Level 4.0 4.5 3.5-5.1 mmol/L Magnesium Level 2.1 1.8-2.4 mg/dl Prothrombin Time 38.2 9.0-12.0 SECONDS Prothromb Time International Ratio 3.7 0.9-1.1 Sodium Level 141 136-145 mmol/L Chloride Level 107 98-107 mmol/L Carbon Dioxide Level 30 21-32 mmol/L Anion Gap 4.0 3-11 mmol/L Blood Urea Nitrogen 25 7-18 mg/dl Creatinine 1.91 0.60-1.40 mg/dl Est Creatinine Clear Calc Drug Dose 58.2 ml/min Estimated GFR () 47.3 Estimated GFR (Non- 40.8 BUN/Creatinine Ratio 12.9 10-20 Random Glucose 142 70-99 mg/dl Calcium Level 8.9 8.5-10.1 mg/dl Pro-B-Type Natriuretic Peptide 4446 0-450 pg/ml Microbiology Results 10/16/17 Blood Culture, Received Pending 10/16/17 Blood Culture, Received Pending Assessment and Plan 47 y/o M Hx multiple myeloma, grade II diastolic dysfunction, paroxysmal AF, DEBBY , CKD II. Pt presented with progressive exertional SOB and intermittent CP. Initially found to have diastolic CHF and then HAP. Symptoms stable and similar to yesterday Possible Gram Negative Pneumonia in the setting of HCAP being treated with zosyn - patient with new findings on CXR - Zosyn, Vanc d/ally yesterday with negative MRSA screen - 09/13 BC growing Gram Positive bacilli, Blood cultures reordered 10/16 - Pulmonology on board - added Tessalon Perles for cough - continue xopenex nebs prn SOB Acute on chronic Diastolic Congestive Heart Failure w/ grade 2 DD - BNP elevated at 4446, - Likely sec to uncontrolled Heart rate from A fib - Echo from earlier this month showed EF of >70 with severe Left Ventricular Hypertrophy - CT showed moderate bilateral pleural effusions - Lasix given today. Was held due to ARSENIO - monitor I/O's Atrial Flutter/Atrial Fibrillation - found to be in aflutter on admission - metoprolol held secondary to low heart rate and BP - amiodarone PO currently - plan for outpatient ablation - troponin downtrended - currently anticoagulated with warfarin, INR 3.7. Hold dose today. Recheck INR Syncope/hypotension- no further episodes - not associated with Arrhythmia episodes, tends to be associated with coughing - vagal episodes vs hypoxia from coughing? - B/p improved- possibly from the steroids. Multiple Myeloma - Oncology consulted - On Pomalidomide through oncology - Had stem cell transplant 20 months ago - question if meds causing cardiac S/E's? - Stress doses of Hydrocortisone initiated on admission- D/C today - receives 20mg weekly at home of Decadron - IgA 374 and IgM 8.8 Hypertension - lisinopril held secondary to ARSENIO - BP adequately controlled Depression - Lexapro restarted ARSENIO on CKD II - creatinine down to 1.91- improving - Continue to trend . DEBBY - will provide a CPAP DVT - warfarin held Full Code Continued [facility] stay due to: multiple IV medications needed Discharge planning: uncertain Reviewed: Pt Seen/Exam by Me History breathing better since admission but still gets easily short of breath just with few steps of walking in the room Constitutional: denies: fever Cardiovascular: denies chest pain General Appearance: no apparent distress (sitting at the edge of bed) Respiratory: decreased breath sounds (with crackles at the base) Cardiovascular: irregularly irregular Neurologic/Psychiatric: alert, oriented x 3 Skin Characteristics: warm/dry Assessment/Plan Resident Physician Supervision Note: I independently interviewed and examined the patient and verified the ba history and physical, reviewed labs and image studies, discussed the case with the resident Dr. Monk, edited the above note and agree with the findings and care plan.
[2017-10-17] MEDS: LEVALBUTEROL 1.25MG/3ML NEB INH SCH ×4 (07:33→19:11)
[2017-10-17] MEDS: PIPERACILL/TAZOBAC IV 4.5 GM in DEXTROSE 5% 100ML IV SCH ×3 (08:48→23:55)
[2017-10-17] MEDS: HYDROCORTISONE IV 50 MG in SYRINGE 0 ML IV SCH (08:49)
[2017-10-17] MEDS: BENZONATATE 100MG CAP PO SCH ×3 (08:49→20:30)
[2017-10-17] MEDS: AMIODARONE 200 MG TAB PO SCH ×2 (08:49→20:30)
[2017-10-17] MEDS: ASPIRIN 81 MG ECTAB PO SCH (08:49)
[2017-10-17] MEDS: ESCITALOPRAM OXALATE 10 MG TAB PO SCH (08:49)
[2017-10-17] MEDS: POMALIDOMIDE 4 MG PO SCH (08:50)
--- NOTE | 2017-10-17 09:34 | Cardiology Follow-Up ---
Subjective Date of Service: Oct 17, 2017. Pt evaluation today including: conversation w/ patient, physical exam, chart review, lab review, review of studies, review of inpatient medication list History of Present Illness This morning he continues to feel poorly. He has difficulty characterizing this further but is somewhat tired and feels ill overall. His breathing is stable but not much improved. He has a cough which is less frequent. His appetite is adequate. He has been ambulatory around the room. He denies any orthopnea claims to sleep well. He has not been aware of any palpitations. Social History Smoking Status: Never Smoker History of Alcohol Use: No Review of Systems Respiratory: + cough, + sputum, + shortness of breath, + dyspnea on exertion, No hemoptysis Cardiac: No chest pain, No edema, No palpitations No recent constitutional symptoms such as fevers or chills. Some nonproductive cough Objective Vital Signs Past 12 Hours Date Time Temp Pulse Resp B/P (MAP) Pulse Ox O2 Delivery O2 Flow Rate FiO2 10/17/17 07:40 36.6 64 18 142/81 (101) 96 10/17/17 04:00 CPAP 10/17/17 03:55 36.7 62 16 106/57 (73) 93 CPAP 0.0 10/17/17 00:01 CPAP 10/16/17 23:21 36.9 69 18 127/64 (85) 92 CPAP 0.0 Last Recorded Weight-Kilograms: 109.100 Physical Exam The patient is alert and oriented. He was not in any acute distress this morning. He answered all questions appropriately. Neuro: Cranial nerves intact Lungs: Occasional crackle at the bases. No wheezing today. Cardiac: Heart demonstrates a regular rate and rhythm. Normal S1 and S2. No murmurs on examination. Pulses: The patient has palpable radial pulses bilaterally that are equal in intensity Extremities: There was no evidence of hypoperfusion. Skin: I did not appreciate any rashes on examination today. Data Laboratory Results: Last 24 Hours Test 10/16/17 11:37 10/16/17 21:43 10/17/17 05:36 Lactate Dehydrogenase 222 U/L Immunoglobulin G 374.0 mg/dL Immunoglobulin A 100.0 mg/dL Immunoglobulin M 8.8 mg/dL Potassium Level 4.0 mmol/L 4.5 mmol/L Magnesium Level 2.1 mg/dl Prothrombin Time 38.2 SECONDS Prothromb Time International Ratio 3.7 Sodium Level 141 mmol/L Chloride Level 107 mmol/L Carbon Dioxide Level 30 mmol/L Anion Gap 4.0 mmol/L Blood Urea Nitrogen 25 mg/dl Creatinine 1.91 mg/dl Est Creatinine Clear Calc Drug Dose 58.2 ml/min Estimated GFR () 47.3 Estimated GFR (Non- 40.8 BUN/Creatinine Ratio 12.9 Random Glucose 142 mg/dl Calcium Level 8.9 mg/dl Pro-B-Type Natriuretic Peptide 4446 pg/ml Telemetry reviewed: Occasional episodes of atrial fibrillation which are brief in nature, lasting 10-15 minutes. Assessment and Plan 1. Acute decompensated diastolic heart failure: While he diuresed quite effectively during the initial part of his hospitalization, he was subsequently administered a lot of fluids due to some mild hypotension. I think based on examination and BMP we should try some more diuresis. His renal function has improved but not quite back to baseline. 2. Atrial fibrillation and flutter: Overall improved. He has less frequent and very brief episodes currently. The overall heart rates are much better controlled. He is not symptomatic from the arrhythmia. He will continue his anticoagulation and amiodarone at the current dose. 3. Elevated troponin: Now normal 4. Left ventricular hypertrophy: This is of unclear etiology. Blood pressures been well controlled. His overall heart rates are well controlled on metoprolol. He still continues to have elements of tachycardia with atrial fibrillation. This may improve with amiodarone therapy as well. We need to be cautious regarding dehydration as this will compromise his ventricular function even more. 5. Syncope: This appears to be related to his coughing. Thinks he may have had an episode 2 nights ago. He states that he awoke diaphoretic and somewhat dizzy. He cannot recall if he was coughing at the time. He states that in the past he has woken up coughing. 6. Dyspnea: This appears to be multifactorial. Initially contribution from pulmonary vascular congestion which I believe has resolved. He is not being treated for broncho pneumonia and has had some improvement on the current medical regimen. 7. Acute kidney injury: Renal function improving slightly. I think we can try some more diuresis in the hopes of improving his vascular congestion. Will need to monitor his renal function closely.
[2017-10-17] MEDS ORDERED: FUROSEMIDE INJ 40 MG in SYRINGE 0 ML IV ONE (09:45)
--- NOTE | 2017-10-17 12:06 | Clinical Documentation Query ---
CLINICAL DOCUMENTATION QUERY 47-y/o male who has gotten HCAP during this stay. Gram negative pneumonia is considered a "complex" respiratory infection due in part to the increased severity of illness and significant risk of mortality associated with the condition. In your clinical opinion is this patient being managed for: ( x ) Possible Gram Negative pneumonia in setting of HCAP treated with IV Zosyn. ( ) Not Agree ( ) Other explanation of clinical findings (Please Explain) ( ) Unable to determine (Please Define) ( ) Need to Discuss The medical record reflects the following clinical findings, treatment, and risk factors. Clinical Indicators: Acquired pneumonia after admission (HCAP). Fever 38.0, Treatment: IV Zosyn Risk Factors: DEBBY, CPAP use, Please clarify and document your clinical opinion in the progress notes and discharge summary. Terms such as "probable", "suspected", "likely", "questionable", "possible", or "still to be ruled out" are acceptable. IF IN AGREEMENT, YOU MUST DOCUMENT ABOVE DIAGNOSTIC STATEMENT IN DAILY PROGRESS NOTES AND DISCHARGE SUMMARY. This document is not part of the patient's record. Thank You, Dimitri Priest, BOBBY [phone]
[2017-10-17] MEDS ORDERED: WARFARIN SOD 5 MG TAB PO SCH (16:00)
--- NOTE | 2017-10-17 18:42 | Pulmonology Progress Note ---
Pulmonary Progress Note Date of Service Oct 17, 2017. Attending Dr. Perez Subjective Patient seen and examined at bedside. No respiratory distress. Oxygenating well on room air. No cough during the 15 minutes that I was in with the patient. MAXIMUM TEMPERATURE 38C 10/14/17. Otherwise, afebrile. No sweats or rigors. No significant sputum. History of obstructive sleep apnea on CPAP at home. His home CPAP machine is in his room with a nasal mask. No further hypoxia. Shortness of breath is improved. No other acute complaints Objective Vital Signs - as noted below Laboratory Data - as noted below Physical Exam: General - NAD Eyes - No icterus, gaze conjugate ENT - Mucosa moist, no lesions or candidiasis Neck - Supple, No JVD Lungs - No bronchospasm or rhonchi. Patient does have bibasilar rales. Good rest sounds throughout. No paradoxical chest wall movement. Heart - irregular, irregular, rate controlled Abdomen - Soft, NT, ND, BS present Extremities - No edema, pedal pulses intact Neuro - A&OX3 Assessment & Plan PNEUMONIA * Infiltrates noted on CT of the chest as well as chest x-ray * Would complete antibiotic course although no leukocytosis and afebrile * Pertussis cultures are pending * Patient overall shows improvement * Continue CPAP as needed at bedtime for DEBBY as well as when necessary during the day BILATERAL PLEURAL EFFUSIONS * No significant diaphragmatic excursion * Continue with diuresis * Oxygenating well on room air * Prior right thoracentesis 05/10/14 with transudative fluid * CXR 10/15/17 with trace bilateral pleural effusions * No intervention at this time TUSSIVE SYNCOPE * Await pertussive culture * Continue with Tessalon Perles for mild cough suppression * Significantly improved * Continue to treat for pneumonia as listed above DVT PROPHYLAXIS * Anticoagulated for atrial fibrillation on chronic Coumadin * INR currently is supratherapeutic * Resume Coumadin per primary team At this time patient shows significant improvement. There is no further hypoxia and patient has responded well to prescribe treatment. Pulmonary will sign off at this time. Please feel free to reconsult as needed. Data Medications: Current Inpatient Medications Medications (Trade) Dose Ordered Sig/Garcia Route Start Time Stop Time Status Last Admin Dose Admin Lisinopril (Zestril Tab) 40 mg DAILY PO 10/12/17 09:00 3/2/18 08:59 Future Hold 10/14/17 07:30 40 MG Pantoprazole Sodium (Protonix Tab) 40 mg DAILY PRN PO 10/12/17 00:15 11/11/17 00:14 Acetaminophen (Tylenol Tab) 650 mg Q4H PRN PO 10/12/17 01:00 11/11/17 00:59 10/15/17 19:21 650 MG Al Hydrox/Mg Hydrox/Simethicone (Maalox Max Susp) 15 ml Q4H PRN PO 10/12/17 01:00 11/11/17 00:59 Magnesium Hydroxide (Milk Of Magnesia Susp) 30 ml Q12H PRN PO 10/12/17 01:00 11/11/17 00:59 Zolpidem Tartrate (Ambien Tab) 5 mg HSZ PRN PO 10/12/17 01:00 11/11/17 00:59 Ondansetron HCl (Zofran Inj) 4 mg Q6H PRN IV 10/12/17 01:00 11/11/17 00:59 10/16/17 16:33 4 MG Aspirin (Ecotrin Tab) 81 mg QAM PO 10/12/17 09:00 11/11/17 08:59 10/17/17 08:49 81 MG Polyethylene (Miralax Powder Packet) 17 gm DAILY PRN PO 10/12/17 01:00 11/11/17 00:59 10/15/17 08:58 17 GM Miscellaneous (Iv Fluids Completed) 1 ea PRN PRN N/A 10/12/17 06:15 10/12/18 06:14 Metoprolol Tartrate (Lopressor Tab) 12.5 mg Q6 PO 10/12/17 12:00 11/11/17 08:59 Future Hold 10/14/17 00:11 12.5 MG Pomalidomide (Pomalyst) 4 mg DAILY PO 10/13/17 09:00 11/12/17 08:59 10/14/17 07:28 4 MG Miscellaneous Information (Consult) 1 ea UD PRN N/A 10/14/17 01:45 11/13/17 01:44 Piperacillin Sod/ Tazobactam Sod 4.5 gm/Dextrose 120 ml @ 30 mls/hr Q8H IV 10/14/17 08:00 10/21/17 07:59 10/17/17 16:13 30 MLS/HR Benzonatate (Tessalon Perles Cap) 200 mg TID PO 10/14/17 14:00 11/13/17 13:59 10/17/17 16:13 200 MG Warfarin Sodium (Coumadin Tab) 5 mg MoTh@1600 PO 10/17/17 16:00 11/16/17 15:59 Future Hold Warfarin Sodium (Coumadin Tab) 2.5 mg SuTuWeFrSa@1600 PO 10/14/17 16:00 11/13/17 15:59 Future Hold 10/15/17 17:04 2.5 MG Levalbuterol (Xopenex 1.25MG/ 3ML Neb) 1.25 mg Q4RWA INH 10/14/17 16:00 11/13/17 10:59 10/17/17 15:58 1.25 MG Amiodarone HCl (Cordarone Tab) 400 mg BID PO 10/14/17 21:00 11/13/17 20:59 10/17/17 08:49 400 MG Escitalopram Oxalate (Lexapro Tab) 10 mg QAM PO 10/16/17 09:45 11/15/17 09:44 10/17/17 08:49 10 MG I & O: 24-Hour Column 10/18/17 08:00 Intake Total 1080 ml Output Total 350 ml Balance 730 ml Vital Signs: Date Time Temp Pulse Resp B/P (MAP) Pulse Ox O2 Delivery O2 Flow Rate FiO2 10/17/17 16:00 Room Air 10/17/17 15:58 90 16 94 BiPAP/CPAP 10/17/17 15:15 36.8 68 18 131/70 (90) 95 Room Air 10/17/17 12:00 Room Air 10/17/17 11:36 103 16 94 Room Air 10/17/17 11:31 36.8 67 18 144/65 (91) 92 Room Air 10/17/17 08:00 Room Air 10/17/17 07:40 36.6 64 18 142/81 (101) 96 10/17/17 07:10 59 16 91 BiPAP/CPAP 10/17/17 04:00 CPAP 10/17/17 03:55 36.7 62 16 106/57 (73) 93 CPAP 0.0 10/17/17 00:01 CPAP 10/16/17 23:21 36.9 69 18 127/64 (85) 92 CPAP 0.0 10/16/17 21:18 148/75 (99) 10/16/17 20:00 Room Air 10/16/17 19:42 68 16 96 Room Air 10/16/17 19:15 36.8 73 18 146/77 (100) 95 Room Air Laboratory Results: Last 24 Hours Test 10/16/17 21:43 10/17/17 05:36 Potassium Level 4.0 mmol/L 4.5 mmol/L Magnesium Level 2.1 mg/dl Prothrombin Time 38.2 SECONDS Prothromb Time International Ratio 3.7 Sodium Level 141 mmol/L Chloride Level 107 mmol/L Carbon Dioxide Level 30 mmol/L Anion Gap 4.0 mmol/L Blood Urea Nitrogen 25 mg/dl Creatinine 1.91 mg/dl Est Creatinine Clear Calc Drug Dose 58.2 ml/min Estimated GFR () 47.3 Estimated GFR (Non- 40.8 BUN/Creatinine Ratio 12.9 Random Glucose 142 mg/dl Calcium Level 8.9 mg/dl Pro-B-Type Natriuretic Peptide 4446 pg/ml
[2017-10-18] VITALS (7 sets, daily range): BP systolic 108–115; BP diastolic 58–69; PULSE 65–105; TEMP 36.6; O2SAT 93–98
[2017-10-18 06:29] LABS: HEMATOCRIT 38.7 % (42-52); HEMOGLOBIN 13.3 g/dL (14.0-18.0); MEAN CELL VOLUME 102.4 fL (80-100); MEAN CORPUSCULAR HEMOGLOBIN 35.2 pg (25-34); MEAN CORPUSCULAR HGB CONC 34.4 g/dl (32-36); MEAN PLATELET VOLUME 9.7 fL (7.4-10.4); PLATELET COUNT 151 K/uL (130-400); RED CELL DISTRIBUTION WIDTH CV 15.2 % (11.5-14.5); RED CELL DISTRIBUTION WIDTH SD 56.7 fL (36.4-46.3); WHITE BLOOD COUNT 4.62 K/uL (4.8-10.8)
[2017-10-18 06:40] LABS: INR 1.9 (0.9-1.1)
[2017-10-18 07:06] LABS: ALBUMIN 2.9 gm/dl (3.4-5.0); CREATININE 2.05 mg/dl (0.60-1.40); POTASSIUM 3.4 mmol/L (3.5-5.1)
[2017-10-18 07:09] LABS: TOTAL PROTEIN 6.3 gm/dl (6.4-8.2)
[2017-10-18] MEDS: LEVALBUTEROL 1.25MG/3ML NEB INH SCH ×2 (07:31→11:15)
[2017-10-18] MEDS: PIPERACILL/TAZOBAC IV 4.5 GM in DEXTROSE 5% 100ML IV SCH (08:00)
[2017-10-18] MEDS: BENZONATATE 100MG CAP PO SCH ×2 (08:00→14:24)
[2017-10-18] MEDS: ESCITALOPRAM OXALATE 10 MG TAB PO SCH (08:01)
[2017-10-18] MEDS: AMIODARONE 200 MG TAB PO SCH (08:01)
[2017-10-18] MEDS: ASPIRIN 81 MG ECTAB PO SCH (08:01)
[2017-10-18] MEDS: POMALIDOMIDE 4 MG PO SCH (09:00)
[2017-10-18] MEDS ORDERED: CRD200 PO (09:28)
[2017-10-18] MEDS ORDERED: LSX20 PO (09:28)
[2017-10-18] MEDS ORDERED: POTASSIUM CHLORIDE 20 MEQ TABCR PO ONE (09:30)
[2017-10-18] MEDS ORDERED: AMOX875T PO (09:34)
--- NOTE | 2017-10-18 09:43 | Discharge Instructions ---
Discharge Instructions Date of Service Oct 18, 2017. Admission Reason for Admission: Exertional Dyspnea Discharge Discharge Diagnosis / Problem: Pneumonia, Congestive Heart Failure and Atrial Fibrillation Discharge Goals Goal(s): Decrease discomfort, Improve function, Improve disease control, Learn about illness, Therapeutic intervention, Prevent Disease Progression Activity Recommendations Activity Limitations: per Instructions/Follow-up section . Instructions / Follow-Up Instructions / Follow-Up You were admitted to the hospital for worsening shortness of breath. You were found to have a very fast heart rate and fluid in your lungs. We gave you medication to clear the fluid from your lungs but then you developed a pneumonia therefore we put you on antibiotics. Pneumonia - we will be sending you home with a prescription for antibiotics. You will need to take this for another 3 days. We will also be sending you home with a prescription for your cough. CHF - we will be sending you home with a water pill. Please weight yourself daily and record it in a journal. Please limit your salt intake. We will need you to follow up in 1-2 weeks with cardiology for further management Atrial Fibrillation/Atrial flutter- we controlled your heart rate with amiodarone and transitioned you to oral amiodarone. Please take this as prescribed and follow up with cardiology in 1-2 weeks to discuss ablation surgery. Please follow up with Dr. Burnett's clinic on Tuesday to check your warfarin level. If you experience any worsening shortness of breath, chest pain, fevers, or light headedness then please come back to the emergency department. Current Hospital Diet Patient's current hospital diet: AHA Diet (Heart Healthy) Discharge Diet Recommended Diet: AHA Diet (Heart Healthy), Low Sodium Diet (2gm Na) Pending Studies Studies pending at discharge: no Laboratory Results Hemoglobin A1c Test 09/13/17 07:17 Range/Units Estimated Average Glucose 146 mg/dl Hemoglobin A1c 6.7 H 4.5-5.6 % Lipid Panel Test 09/14/17 06:29 Range/Units Triglycerides Level 199 H 0-150 mg/dl Cholesterol Level 160 0-200 mg/dl HDL Cholesterol 49 mg/dl Cholesterol/HDL Ratio 3.3 LDL Cholesterol, Calculated 71 mg/dl Medical Emergencies . Who to Call and When: Medical Emergencies: If at any time you feel your situation is an emergency, please call 911 immediately. . Non-Emergent Contact Non-Emergency issues call your: Primary Care Provider, [employer] [facility] . . "Provider Documentation" section prepared by Jaxon Monk. . VTE Core Measure Inpt VTE Proph given/why not?: Warfarin (Coumadin)
[2017-10-18] MEDS ORDERED: BENZ100C7 PO (09:46)
--- NOTE | 2017-10-18 09:57 | Discharge Summary ---
Discharge Summary Date of Service Oct 18, 2017. Discharge Summary Admission Date: Oct 14, 2017 at 18:29 Discharge Date: Oct 18, 2017 Discharge Disposition: Home Principal Diagnosis: CHF, atrial fibrillation and pneumonia Immunizations: Have You Had Influenza Vaccine: Unknown History of Tetanus Vaccine?: Yes History of Pneumococcal: No History of Hepatitis B Vaccine: No Consultations: Cardiology Pulmonology Medication Reconciliation New Medications: Amoxicillin & Pot Clavulanate (Augmentin 875-125 mg) 1 Tab Tab 1 TAB PO BID for 3 Days, #5 TAB Furosemide (Furosemide) 20 Mg Tab 20 MG PO DAILY for 30 Days, #30 TAB Amiodarone HCl (Amiodarone HCl) 200 Mg Tab 400 MG PO DAILY for 30 Days, #60 TAB Benzonatate (Benzonatate) 100 Mg Cap 200 MG PO TID for 3 Days, #18 CAP Continued Medications: Aspirin (Aspir-81) 81 Mg Tab 81 MG PO DAILY Dexamethasone (Decadron) 4 Mg Tab 20 MG PO WK TAKES ON SATURDAYS Escitalopram (Lexapro) 10 Mg Tab 10 MG PO DAILY, TAB Pantoprazole (Pantoprazole Sodium) 40 Mg Tab 40 MG PO DAILY PRN for Indigestion Pomalidomide (Pomalyst) 4 Mg Cap 4 MG PO DAILY PT TAKES FOR 21DAYS THEN OFF FOR 7DAYS. PT DUE TO START OFF DAYS NEXT WEEK Warfarin Sod (Jantoven) 5 Mg Tab 2.5 MG PO 6XWK, TAB EVERYDAY EXCEPT MONDAYS. Warfarin Sod (Jantoven) 5 Mg Tab 5 MG PO WK, TAB TAKES ON MONDAYS ONLY Discontinued Medications: Lisinopril (Lisinopril) 40 Mg Tab 40 MG PO DAILY Metoprolol Tartrate (Lopressor) (Lopressor) 25 Mg Tab 12.5 MG PO BID, TAB Discharge Exam Patient feeling well and without any shortness of breath on exertion Still with mild persistent cough but denies any other symptoms Review of Systems: Constitutional: No fever, No chills Respiratory: No cough, No sputum, No shortness of breath Cardiovascular: No chest pain, No edema, No palpitations Abdomen: No pain, No nausea, No vomiting, No diarrhea, No constipation Musculoskeletal: No joint pain, No muscle pain Genitourinary - Male: No hematuria, No dysuria Integumentary: No rash, No itch, No new/changing skin lesions Physical Exam: General Appearance: WD/WN, no apparent distress ENT: hearing grossly normal, pharynx normal Neck: supple, no JVD, trachea midline Respiratory/Chest: no respiratory distress, no accessory muscle use, + crackles (LLL crackles) Cardiovascular: regular rate, rhythm, no murmur, normal peripheral pulses Abdomen / GI: normal bowel sounds, non tender, soft Extremities: no calf tenderness, no pedal edema, normal range of motion, non -tender Neurologic/Psychiatric: alert, normal mood/affect, oriented x 3 Skin: normal color, warm/dry, no rash Hospital Course 47 y/o M Hx multiple myeloma, grade II diastolic dysfunction, paroxysmal AF, DEBBY , CKD II. Pt presented with progressive exertional SOB and intermittent CP. Initially found to have diastolic CHF with atrial fibrillation and then HAP Possible Gram Negative Pneumonia in the setting of HCAP being treated with zosyn - patient with new findings on CXR - Zosyn, Vanc stopped with negative MRSA screen - / BC growing Gram Positive bacilli, Blood cultures reordered 10/16 and negative to date - Pulmonology on board - discharged with 3 more days of oral augmentin 875bid to finish 7 day course Acute on chronic Diastolic Congestive Heart Failure w/ grade 2 DD - BNP elevated at 4446 - Likely sec to uncontrolled Heart rate from A fib - Echo from earlier this month showed EF of >70 with severe Left Ventricular Hypertrophy - CT showed moderate bilateral pleural effusions - Lasix given while in hospital and discharged with 20mg of lasix PO daily - Instructed to monitor daily weights and follow up with cardiology as outpatient Atrial Flutter/Atrial Fibrillation - found to be in aflutter on admission - metoprolol held secondary to low heart rate and BP, stopped before discharged - Given IV amiodarone here and discharged on PO amiodarone - plan for outpatient ablation - troponin downtrended - anticoagulation with warfarin, INR 1.9 on discharge, recheck labs as outpatient and f/u with coumadin clinic on Tuesday Syncope - several episodes in hospital - associated with coughing - not associated with Arrhythmia episodes, - vagal episodes vs hypoxia from coughing? - No more episodes prior to discharge and discharged with john velarde Multiple Myeloma - Oncology consulted - On Pomalidomide through oncology - Had stem cell transplant 20 months ago - question if meds causing cardiac S/E's? - Stress doses of Hydrocortisone initiated - receives 20mg weekly at home of Decadron - IgA 374 and IgM 8.8 Hypertension - lisinopril held secondary to ARSENIO and stopped at discharge - BP adequately controlled Depression - Lexapro restarted ARSENIO on CKD II - creatinine at 2.1 on discharge - repeat labs on and to f/ with PCP - Continue to trend . DEBBY - CPAP Total Time Spent: Greater than 30 minutes This includes examination of the patient, discharge planning, medication reconciliation, and communication with other providers. Discharge Instructions Please refer to the electronic Patient Visit Report (Discharge Instructions) for additional information. Additional Copies To Santiago Johnson MD; Jc Quan M.D. Reviewed: Pt Seen/Exam by Me History breathing much improved. Constitutional: denies: fever Respiratory: negative: short of breath Cardiovascular: denies chest pain Gastrointestinal/Abdominal: negative: abdominal pain General Appearance: no apparent distress Respiratory: no respiratory distress, decreased breath sounds (base) Cardiovascular: regular rate, rhythm Gastrointestinal: soft Neurologic/Psychiatric: alert, oriented x 3 Skin Characteristics: warm/dry Assessment/Plan Resident Physician Supervision Note: I independently interviewed and examined the patient and verified the ba history and physical, reviewed labs and image studies, discussed the case with the resident Dr. Monk, edited the above note and agree with the findings and care plan. Time spent in discharge 40 min
[2017-10-18] MEDS: ACETAMINOPHEN 325 MG TAB PO PRN (13:55)
[2017-10-19] MEDS ORDERED: ALBU18002 INH (16:36)
[2017-10-19] MEDS ORDERED: ONDA4TAB46 PO (16:42)
== END 2017-10-18 14:35 | disposition home or self-care (01) | DRG 177 ==
LOC: C.EDB 20:30 → C.MSICU 10-12 00:54 → ENRESERV 10-12 18:14 → C.MED 10-12 19:40 → ENRESERV 10-13 12:50 → C.2T 10-13 13:20 → OBSVTOIN 10-14 18:29
PROVIDERS: ADMIT Internal Medicine; ATTEND Family Medicine
DX: J15.6 Pneumonia due to other Gram-negative bacteria (principal); I50.33 Acute on chronic diastolic (congestive) heart failure; N17.0 Acute kidney failure with tubular necrosis; I13.0 Hypertensive heart and chronic kidney disease with heart failure and stage 1 through stage 4 chronic kidney disease, or unspecified chronic kidney disease; I47.1 Supraventricular tachycardia; I48.92 Unspecified atrial flutter; Z94.84 Stem cells transplant status; C90.00 Multiple myeloma not having achieved remission; D61.818 Other pancytopenia; T50.905A Adverse effect of unspecified drugs, medicaments and biological substances, initial encounter; I48.0 Paroxysmal atrial fibrillation; N18.2 Chronic kidney disease, stage 2 (mild); G47.33 Obstructive sleep apnea (adult) (pediatric); F32.9 Major depressive disorder, single episode, unspecified; E66.3 Overweight; F17.220 Nicotine dependence, chewing tobacco, uncomplicated; Z79.899 Other long term (current) drug therapy; Z79.01 Long term (current) use of anticoagulants; Z79.52 Long term (current) use of systemic steroids; Z79.82 Long term (current) use of aspirin; Z68.35 Body mass index [BMI] 35.0-35.9, adult

== ENCOUNTER 2017-11-20 00:34 | Observation (INO) | payer BC ==
[~2017-11-20] VITALS: Ht 175.3 cm; Wt 108.0 kg
[~2017-11-20 00:34] MED LIST changes: +ALBU18002 INH; +AMOX875T PO; -ASPI-232 PO; +BENZ100C7 PO; -LPR25 PO; -LSN40 PO; +LSX20 PO; +METO25TA56 PO; -OMEG10007 PO; +VLCI INJ
--- NOTE | 2017-11-20 00:56 | EMERGENCY ROOM VISIT NOTE ---
History Report prepared by Felisa: Shane Santos Under the Supervision of: Dr. Jaxon Contreras M.D. First contact with patient: 00:45 Chief Complaint: SHORTNESS OF BREATH Stated Complaint: INCREASE IN SOB History of Present Illness The patient is a 47 year old male who presents to the Emergency Room with complaints of worsening shortness of breath that began 1 week ago. He reports chest tightness and diarrhea. He states his shortness of breath worsens with inspiration, movement, and lying down flat. He notes that after taking his steroid, his heart does race but then it returns to baseline. He states he has heart failure and an ejection fraction of 75. He is on Coumadin (atrial fibrillation), chemotherapy, and started Velcade shots (amyloidosis) 2 weeks ago. He states he was recently on Augmentin, discontinued Lasix 1 week ago, and took Dexamethasone (20 mg) today. He states he uses an inhaler periodically and sleeps with a CPap. He had a stem cell transplant in 2014. The patient was previously admitted to [facility] for pleural effusions 1 month ago. The patient denies urinary symptoms, cough, fevers, headaches, neck pain, and swollen lymph nodes. He denies abdominal pain, nausea, and vomiting. He denies leg swelling, blood clots, black and bloody stools. He denies blood transfusions and COPD. Per the , the patient went to [facility] 2 weeks ago for an evaluation for an ablation. Source of History: patient, spouse/significant other Onset: 1 week ago Position: other (lungs) Symptom Intensity: pain rated as 0/10 Timing: worsening Modifying Factors (Worsening): breathing, movement, other (lying down) Associated Symptoms: + chest pain (tightness), + SOB, + diarrhea, No fevers , No headache, No cough, No neck pain, No nausea, No vomiting, No abdominal pain , No melena, No urinary symptoms, No lymphadenopathy Note: Patient denies leg swelling and blood clots. Review of Systems See HPI for pertinent positives & negatives. A total of 10 systems reviewed and were otherwise negative. Past Medical & Surgical Medical Problems: (1) Diastolic CHF, acute (2) Exertional dyspnea (3) GERD (gastroesophageal reflux disease) (4) H/O autologous stem cell transplant (5) History of autologous stem cell transplant (6) Hypertension (7) shelter (current) use of anticoagulants (8) Multiple myeloma (9) New onset atrial fibrillation Surgical Problems: (1) History of autologous stem cell transplant Family History Not known due to adoption Social History Smoking Status: Never Smoker Drug Use: none Marital Status: Occupation Status: employed Current/Historical Medications Scheduled Albuterol Sulfate (Proair Respiclick), 1-4 PUFFS INH UD Amoxicillin & Pot Clavulanate (Augmentin 875-125 mg), 1 TAB PO BID Bortezomib (Velcade), 1 DOSE INJ WK Dexamethasone (Decadron), 20 MG PO WK Escitalopram (Lexapro), 10 MG PO DAILY Metoprolol Tartrate (Lopressor) (Lopressor), 12.5 MG PO BID Pomalidomide (Pomalyst), 4 MG PO DAILY Warfarin Sod (Jantoven), 2.5 MG PO DAILY Scheduled PRN Pantoprazole (Pantoprazole Sodium), 40 MG PO DAILY PRN for Indigestion Allergies Coded Allergies: No Known Allergies (Unverified , 11/20/17) Physical Exam Vital Signs Date Time Temp Pulse Resp B/P (MAP) Pulse Ox O2 Delivery O2 Flow Rate FiO2 11/20/17 03:33 68 16 130/66 95 Room Air 11/20/17 01:46 76 22 131/64 95 Room Air 11/20/17 00:40 36.7 71 25 119/71 97 Room Air Physical Exam GENERAL: Patient is tired and unwell appearing and in minimal distress. EYES: Pale conjunctiva. No scleral icterus, unremarkable pupils. ENT: Mucous membranes moist, no nasal congestion. NECK: No masses appreciated, no meningismus, trachea is midline. RESPIRATORY: Moderately dyspneic with clear lung sounds at apex and minimal breath sounds at bases. No wheeze, no rhonchi. CARDIOVASCULAR: Regular rate and rhythm. No murmurs, rubs, gallops appreciated. GASTROINTESTINAL: Abdomen soft, nontender, no peritonitis. Bowel sounds positive. No masses appreciated. BACK: No midline tenderness, no CVA tenderness EXTREMITIES: Normal motion all extremities, no cyanosis, no edema. NEUROLOGIC: Alert and oriented, no acute motor or sensory deficits, no focal weakness, cranial nerves grossly intact. SKIN: No rash, no jaundice, no diaphoresis. Medical Decision & Procedures ER Provider Diagnostic Interpretation: Radiology results and stated below per my review and interpretation: Chest X Ray: two views Bilateral moderate pleural effusion with diffuse congestive heart failure findings. Enlarged heart. No infiltrate This has worsened from X ray from 1 month ago. Laboratory Results 11/20/17 01:05 Red Blood Count 3.70, Mean Corpuscular Volume 101.1, Mean Corpuscular Hemoglobin 35.7, Mean Corpuscular Hemoglobin Concent 35.3, Mean Platelet Volume 9.6, Neutrophils (%) (Auto) 81.8, Lymphocytes (%) (Auto) 10.4, Monocytes (%) ( Auto) 3.3, Eosinophils (%) (Auto) 2.7, Basophils (%) (Auto) 0.3, Neutrophils # ( Auto) 2.77, Lymphocytes # (Auto) 0.35, Monocytes # (Auto) 0.11, Eosinophils # ( Auto) 0.09, Basophils # (Auto) 0.01 11/20/17 01:05 Test 11/20/17 01:05 White Blood Count 3.38 K/uL (4.8-10.8) Red Blood Count 3.70 M/uL (4.7-6.1) Hemoglobin 13.2 g/dL (14.0-18.0) Hematocrit 37.4 % (42-52) Mean Corpuscular Volume 101.1 fL (80-100) Mean Corpuscular Hemoglobin 35.7 pg (25-34) Mean Corpuscular Hemoglobin Concent 35.3 g/dl (32-36) Platelet Count 108 K/uL (130-400) Mean Platelet Volume 9.6 fL (7.4-10.4) Neutrophils (%) (Auto) 81.8 % Lymphocytes (%) (Auto) 10.4 % Monocytes (%) (Auto) 3.3 % Eosinophils (%) (Auto) 2.7 % Basophils (%) (Auto) 0.3 % Neutrophils # (Auto) 2.77 K/uL (1.4-6.5) Lymphocytes # (Auto) 0.35 K/uL (1.2-3.4) Monocytes # (Auto) 0.11 K/uL (0.11-0.59) Eosinophils # (Auto) 0.09 K/uL (0-0.5) Basophils # (Auto) 0.01 K/uL (0-0.2) RDW Standard Deviation 53.9 fL (36.4-46.3) RDW Coefficient of Variation 14.8 % (11.5-14.5) Immature Granulocyte % (Auto) 1.5 % Immature Granulocyte # (Auto) 0.05 K/uL (0.00-0.02) Prothrombin Time 20.6 SECONDS (9.0-12.0) Prothromb Time International Ratio 2.0 (0.9-1.1) Activated Partial Thromboplast Time 42.8 SECONDS (21.0-31.0) Partial Thromboplastin Ratio 1.6 Anion Gap 9.0 mmol/L (3-11) Est Creatinine Clear Calc Drug Dose 68.3 ml/min Estimated GFR () 57.3 Estimated GFR (Non- 49.4 BUN/Creatinine Ratio 15.6 (10-20) Calcium Level 9.2 mg/dl (8.5-10.1) Magnesium Level 1.9 mg/dl (1.8-2.4) Total Creatine Kinase 41 U/L (39-308) Creatine Kinase MB 1.6 ng/ml (0.5-3.6) Creatine Kinase MB Ratio 3.9 (0-3.0) Troponin I 0.120 ng/ml (0-0.045) Pro-B-Type Natriuretic Peptide 5042 pg/ml (0-450) Beta-Hydroxybutyric Acid mg/dL (0.2-2.81) Laboratory results as reviewed by me. Medications Administered Medications (Trade) Dose Ordered Sig/Garcia Route Start Time Stop Time Status Last Admin Dose Admin Insulin Human Regular (novoLIN-R U-100 PER UNIT) 8 units NOW STAT SC 11/20/17 01:38 11/20/17 01:39 DC 11/20/17 01:43 8 UNITS Furosemide (Lasix Inj) 40 mg NOW STAT IV 11/20/17 01:51 11/20/17 01:52 DC 11/20/17 03:32 40 MG ECG Per My Interpretation Indication: SOB/dyspnea Rate (beats per minute): 75 Rhythm: normal sinus Findings: T-wave inversion (inferior lateral leads), no acute ischemic change, no ectopy, other (QTc of 469) Comparison ECG Date: Similar to EKG of October 2017 ED Course 0045: The patient was evaluated in room B3B. A complete history and physical exam was performed. 0131 I checked on the patient and he notes he feels much better sitting up. 0138: I checked on the patient and he notes no history of diabetes. He notes mildly elevated sugars the last time he was here at [facility]. 030: I discussed the patient's case with the medicine resident. The patient will be evaluated for further treatment and disposition. 0315: Upon reevaluation, the patient is doing well. Discussed results and treatment plan with the patient. He verbalized understanding and agreement with the treatment plan. The patient will be evaluated for further management. Medical Decision Differential: Infectious, Reactive Airway Disease, Pneumonia, Pneumothorax, COPD , CHF, ACS, Pulmonary Embolism, MSK, GI, Dissection, amongst other etiologies entertained. 47 yr old male arrives with complaint of worsening SHOB over the last week. Vitals are OK though his exam is poor. No CP and EKG is similar to previous. CXR with bilateral new pleural effusions. Trop is now creeping back up. Renal function at his baseline. HgB OK despite him looking quite pale. His BSG is quite elevated for non-diabetic and may be onset of Diabetes, which is quite concerning given he just took 20mg PO Decadron and I suspect it may creep up quickly here over next 12-24 hours. Fluid overload on CXR seems consistent with stopping his lasix when he ran out a week ago. He is not septic and I do not see clear evidence infectious etiology of his symptoms. With his multiple medical comorbidities, trop elevation of uncertain etiology, new onset hyperglycemia and the bilateral pleural effusions he will need to come in for further work-up and evaluation. Of not I feel this is not PE given his INR. Medication Reconcilliation Current Medication List: was personally reviewed by me Blood Pressure Screening Patient's blood pressure: Elevated blood pressure Blood pressure disposition: Elevated BP felt to be situational (He will be monitored by hospitalist.) Consults Time Called: 014 Consulting Physician: Medicine Resident Returned Call: [phone] Discussed the patient's case. The patient will be evaluated for further treatment and disposition. Impression Primary Impression: Congestive heart failure Additional Impressions: Bilateral pleural effusion Hyperglycemia Thrombocytopenia Elevated troponin Scribe Attestation The scribe's documentation has been prepared under my direction and personally reviewed by me in its entirety. I confirm that the note above accurately reflects all work, treatment, procedures, and medical decision making performed by me. Departure Information Referrals Jc Quan M.D. (PCP) Patient Instructions My [facility] Problem Qualifiers
[2017-11-20 01:15] LABS: HEMATOCRIT 37.4 % (42-52); HEMOGLOBIN 13.2 g/dL (14.0-18.0); MEAN CELL VOLUME 101.1 fL (80-100); MEAN CORPUSCULAR HEMOGLOBIN 35.7 pg (25-34); MEAN CORPUSCULAR HGB CONC 35.3 g/dl (32-36); MEAN PLATELET VOLUME 9.6 fL (7.4-10.4); PLATELET COUNT 108 K/uL (130-400); RED CELL DISTRIBUTION WIDTH CV 14.8 % (11.5-14.5); RED CELL DISTRIBUTION WIDTH SD 53.9 fL (36.4-46.3); WHITE BLOOD COUNT 3.38 K/uL (4.8-10.8)
[2017-11-20 01:31] LABS: CALCIUM 9.2 mg/dl (8.5-10.1); CREATININE 1.63 mg/dl (0.60-1.40); POTASSIUM 4.6 mmol/L (3.5-5.1)
[2017-11-20] MEDS ORDERED: NovoLIN-R INSULIN PER UNIT CHARGE SC STA (01:38)
[2017-11-20 01:39] LABS: PTT PATIENT 42.8 SECONDS (21.0-31.0)
[2017-11-20 01:48] LABS: CKMB 1.6 ng/ml (0.5-3.6)
[2017-11-20] MEDS ORDERED: FUROSEMIDE 40 MG/4 ML VIAL IV STA (01:51)
[2017-11-20 03:01] LABS: BASO % 0.3 %; BASO ABS # 0.01 K/uL (0-0.2); EOS % 2.7 %; EOS ABS # 0.09 K/uL (0-0.5); IG# 0.05 K/uL (0.00-0.02); LYMPH % 10.4 %; LYMPH ABS # 0.35 K/uL (1.2-3.4); MONO % 3.3 %; MONO ABS # 0.11 K/uL (0.11-0.59); NEUT % 81.8 %; NEUT ABS # 2.77 K/uL (1.4-6.5)
[2017-11-20] MEDS ORDERED: NITROGLYCERIN 0.4 MG SL PER TAB CHARGE SL PRN (03:30)
[2017-11-20] MEDS ORDERED: ACETAMINOPHEN 325 MG TAB PO PRN (03:30)
[2017-11-20] MEDS ORDERED: ONDANSETRON 8MG OD TAB PO PRN (03:45)
[2017-11-20] MEDS ORDERED: PANTOprazole SOD 40 MG TAB PO PRN (03:45)
[2017-11-20 04:34] VITALS: O2SAT 96
[2017-11-20 04:45] VITALS: BP 130/71; PULSE 103; TEMP 36.6; Ht 175.3 cm; Wt 108.0 kg
--- NOTE | 2017-11-20 05:45 | History and Physical ---
History & Physical Date & Time of Service: Nov 20, 2017 at 05:42 Chief Complaint: Bilateral Pleural Effusion, Elevated Troponin Primary Care Physician: Jc Quan M.D. History of Present Illness Source: patient, family, hospital records The patient is a 47-year-old male who presents to the emergency department with worsening shortness of breath, that worsens with inspiration, physical activity and lying flat, over the past week. He also reports intermittent chest tightness and diarrhea. His heart does occasionally race, and he has a history of heart failure. His past medical history includes multiple myeloma status post BMT in 2014, chemotherapy, and started Velcade shots for amyloidosis 2 weeks ago. He does use dexamethasone 20 mg once a week, and did take his most recent dose earlier in the day today. He has DEBBY and wears CPAP at night. His most recent admission to [facility] was from October 14 - October 18, 2016 for pleural effusions. He has recently gone to [facility] 2 weeks ago to assess for possible ablation. He follows locally with from cardiology and Dr. Estrada from hematology oncology. He denies any recent change in dietary patterns or physical activity patterns. Family History Not known due to adoption Social History Smoking Status: Never Smoker Smokeless Tobacco Use: No Alcohol Use: none Drug Use: none Marital Status: Housing status: lives with family Occupational Status: employed Immunizations History of Influenza Vaccine: Unknown History of Tetanus Vaccine?: Yes History of Pneumococcal: No History of Hepatitis B Vaccine: No Allergies Coded Allergies: No Known Allergies (Unverified , 11/20/17) Home Medications Scheduled Albuterol Sulfate (Proair Respiclick), 1-4 PUFFS INH UD Amoxicillin & Pot Clavulanate (Augmentin 875-125 mg), 1 TAB PO BID Bortezomib (Velcade), 1 DOSE INJ WK Dexamethasone (Decadron), 20 MG PO WK Escitalopram (Lexapro), 10 MG PO DAILY Metoprolol Tartrate (Lopressor) (Lopressor), 12.5 MG PO BID Pomalidomide (Pomalyst), 4 MG PO DAILY Warfarin Sod (Jantoven), 2.5 MG PO DAILY Scheduled PRN Pantoprazole (Pantoprazole Sodium), 40 MG PO DAILY PRN for Indigestion Review of Systems The patient denies lower extremity swelling, sore throat, fevers, chills, sweats, nausea, vomiting, diarrhea , constipation, abdominal pain, pelvic pain, blood in urine or stool, dysuria, urinary frequency or urgency, lightheadedness , dizziness, headache, memory loss, loss of consciousness, imbalance, focal or generalized weakness, numbness or tingling in arms or legs, generalized arthralgias or myalgias, back or neck pain, or night sweats. The review of systems is otherwise negative other than for that already noted above, and at least 10 systems have been reviewed. Physical Exam Vital Signs Date Time Temp Pulse Resp B/P (MAP) Pulse Ox O2 Delivery O2 Flow Rate FiO2 11/20/17 04:45 36.6 103 130/71 Room Air 11/20/17 04:34 69 20 132/71 96 11/20/17 03:33 68 16 130/66 95 Room Air 11/20/17 01:46 76 22 131/64 95 Room Air 11/20/17 00:40 36.7 71 25 119/71 97 Room Air The patient is awake, alert and oriented 3, well developed and well nourished, normocephalic and atraumatic, lying in bed and in no acute distress. HEENT--PERRL, EOMI, mucous membranes and oropharynx normal. Neck--supple. No JVD. No bruits. Thyroid normal, trachea midline, no adenopathy. Heart--normal S1 and S2. No murmurs, rubs or gallops. Lungs-- decreased breath sounds at the bases right greater than left, no respiratory distress, no accessory muscle use. Abdomen--normal bowel sounds and soft. Nontender. Nondistended, no hernias or masses, no organomegaly. Extremities--no cyanosis or clubbing. No edema. There are good distal pulses b/ l. Dermatologic--normal skin turgor, normal color, no abnormal lymph nodes, no rash. Neurologic--cranial nerves II through XII grossly intact. Rheumatologic--normal range of motion. Psychiatric--normal affect. Diagnostics Laboratory Results Results Past 24 Hours Test 11/20/17 01:05 11/20/17 03:23 11/20/17 04:30 Range/Units White Blood Count 3.38 4.8-10.8 K/uL Red Blood Count 3.70 4.7-6.1 M/uL Hemoglobin 13.2 14.0-18.0 g/dL Hematocrit 37.4 42-52 % Mean Corpuscular Volume 101.1 80-100 fL Mean Corpuscular Hemoglobin 35.7 25-34 pg Mean Corpuscular Hemoglobin Concent 35.3 32-36 g/dl Platelet Count 108 130-400 K/uL Mean Platelet Volume 9.6 7.4-10.4 fL Neutrophils (%) (Auto) 81.8 % Lymphocytes (%) (Auto) 10.4 % Monocytes (%) (Auto) 3.3 % Eosinophils (%) (Auto) 2.7 % Basophils (%) (Auto) 0.3 % Neutrophils # (Auto) 2.77 1.4-6.5 K/uL Lymphocytes # (Auto) 0.35 1.2-3.4 K/uL Monocytes # (Auto) 0.11 0.11-0.59 K/uL Eosinophils # (Auto) 0.09 0-0.5 K/uL Basophils # (Auto) 0.01 0-0.2 K/uL RDW Standard Deviation 53.9 36.4-46.3 fL RDW Coefficient of Variation 14.8 11.5-14.5 % Immature Granulocyte % (Auto) 1.5 % Immature Granulocyte # (Auto) 0.05 0.00-0.02 K/uL Prothrombin Time 20.6 9.0-12.0 SECONDS Prothromb Time International Ratio 2.0 0.9-1.1 Activated Partial Thromboplast Time 42.8 21.0-31.0 SECONDS Partial Thromboplastin Ratio 1.6 Sodium Level 135 136-145 mmol/L Potassium Level 4.6 3.5-5.1 mmol/L Chloride Level 104 98-107 mmol/L Carbon Dioxide Level 22 21-32 mmol/L Anion Gap 9.0 3-11 mmol/L Blood Urea Nitrogen 25 7-18 mg/dl Creatinine 1.63 0.60-1.40 mg/dl Est Creatinine Clear Calc Drug Dose 68.3 ml/min Estimated GFR () 57.3 Estimated GFR (Non- 49.4 BUN/Creatinine Ratio 15.6 10-20 Random Glucose 332 70-99 mg/dl Calcium Level 9.2 8.5-10.1 mg/dl Magnesium Level 1.9 1.8-2.4 mg/dl Total Creatine Kinase 41 39-308 U/L Creatine Kinase MB 1.6 0.5-3.6 ng/ml Creatine Kinase MB Ratio 3.9 0-3.0 Troponin I 0.120 0-0.045 ng/ml Pro-B-Type Natriuretic Peptide 5042 0-450 pg/ml Beta-Hydroxybutyric Acid 0.2-2.81 mg/dL Bedside Glucose 231 292 70-99 mg/dl EKG EKG shows normal sinus rhythm at 75 bpm, question of inferior lateral changes, no change compared to October 13, 2017. Impression Assessment and Plan Acute on chronic diastolic CHF/pleural effusions/atrial fibrillation-- The patient will be admitted to telemetry for serial cardiac enzymes, serial EKG's, and cardiac rhythm monitoring. Continue metoprolol tartrate 12.5 mg p.o. twice daily, and warfarin 2.5 mg p.o. daily. Patient reports having had a stress Cardiolite at last hospital admission and echocardiogram recently as well. Lasix 40 mg IV given in the ED. Continue Lasix 40 mg IV every morning. Serial CBC with differential, BMP and magnesium levels. Consult Dr. Johnson. Hyperglycemia-- Secondary to Decadron 20 mg dose just taken. He received 8 units regular insulin IV per ED. Place on Accu-Cheks before meals and at bedtime with NovoLog coverage per scale. Chronic kidney disease-- Creatinine 1.63 on admission, and follow serially while being diuresed. Creatinine range has been 1.2-2.6 over the past year. Multiple myeloma status post BMT in 2014-- Continue usual regimen of pomalidomide [address] Estrada. Anxiety with depression-- Continue Lexapro 10 mg p.o. daily. Advanced Directives Existing Advance Directive: No Existing Living Will: No Existing Power of Webmethods Consultant: No Resuscitation Status VTE Prophylaxis Will order VTE Prophylaxis: Yes
[2017-11-20] MEDS ORDERED: IV FLUIDS COMPLETED PRN (06:45)
[2017-11-20] MEDS ORDERED: PNEUMOCOCCAL ADMINISTRATION CHARGE ONE (07:00)
[2017-11-20] MEDS ORDERED: PNEUMOCOCCAL POLYSACCHARIDES 25 MCG/0.5 ML VIAL/SYR IM. ONE (07:00)
--- NOTE | 2017-11-20 07:22 | DIAGNOSTIC IMAGING REPORT ---
CHEST 2 VIEWS ROUTINE CLINICAL HISTORY: Worsening shortness of breath COMPARISON STUDY: October 15, 2017 FINDINGS: The heart remains enlarged. There is elevation interstitium consistent with mild interstitial edema. There are small bilateral pleural effusions. There is no lobar consolidation.[ Diagnostic considerations include mild interstitial pulmonary edema/fluid overload versus a bilateral interstitial inflammatory/infectious process. IMPRESSION: Interstitial edema pattern with slight interval increase in the small bilateral pleural effusions Electronically signed by: Tomi Parikh M.D. 11/20/2017 7:21 AM Dictated Date/Time: 11/20/2017 7:18 AM
[2017-11-20 07:40] VITALS: BP 144/75; PULSE 69; TEMP 36.9; O2SAT 96
[2017-11-20] MEDS ORDERED: FUROSEMIDE INJ 40 MG in SYRINGE 0 ML IV SCH (09:00)
[2017-11-20] MEDS ORDERED: METOPROLOL TARTRATE 25 MG TAB PO SCH (09:00)
[2017-11-20] MEDS ORDERED: ESCITALOPRAM OXALATE 10 MG TAB PO SCH (09:00)
[2017-11-20 11:35] VITALS: BP 142/74; PULSE 65; TEMP 36.9; O2SAT 95
[2017-11-20 12:41] LABS: CKMB 1.6 ng/ml (0.5-3.6)
--- NOTE | 2017-11-20 13:44 | Oncology Consultation ---
Oncology/Heme Consultation Date of Consultation: Nov 20, 2017. Attending Physician: Sarika Hodges DO Reason for Consultation: Lambda light chain myeloma CHF History of Present Illness Mr. Pitts is a 47-year-old gentleman with a history of lambda light chain myeloma. 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 He had been treated with pomalidomide and Decadron and because of a further elevation in his lambda light chain Velcade was recently added to that combination. He was recently hospitalized with palpitations and was found to have left ventricular hypertrophy. He was treated with amiodarone and Lasix. Apparently he ran out of Lasix a week and half ago and is now admitted with shortness of breath. Since his discharge there has been a potential thought of having amyloidosis. At her last clinic visit he complained fairly severely of dysgeusia. There was a plan for a cardiac ablation procedure with cardiology at [place]. He was seen in consultation there and it was felt that ablation would not be necessary. We had originally also had plans of having an endocardial biopsy done to rule out amyloid during the procedure but obviously that was not done. An MRI of the heart has been ordered by colleagues at [facility]. He is admitted now with worsening shortness of breath. He states that his still has palpitations from time to time in occasional tightness of the chest. Denies any fever chills or significant diarrhea or new bone pain. Chest x-ray does have changes consistent with CHF. Past Medical/Surgical History Medical Problems: (1) Bilateral pleural effusion Status: Acute (2) Congestive heart failure Status: Acute (3) Elevated troponin Status: Acute (4) Elevated troponin Status: Acute (5) Hyperglycemia Status: Acute (6) Tachy-jasper syndrome Status: Acute (7) Thrombocytopenia Status: Acute Family History Not known due to adoption Social History Smoking Status: Never Smoker Smokeless Tobacco Use: No Alcohol Use: none Drug Use: none Marital Status: Occupation Status: employed Allergies Coded Allergies: No Known Allergies (Unverified , 11/20/17) Home Medications Scheduled Albuterol Sulfate (Proair Respiclick), 1-4 PUFFS INH UD Amoxicillin & Pot Clavulanate (Augmentin 875-125 mg), 1 TAB PO BID Bortezomib (Velcade), 1 DOSE INJ WK Dexamethasone (Decadron), 20 MG PO WK Escitalopram (Lexapro), 10 MG PO DAILY Metoprolol Tartrate (Lopressor) (Lopressor), 12.5 MG PO BID Pomalidomide (Pomalyst), 4 MG PO DAILY Warfarin Sod (Jantoven), 2.5 MG PO DAILY Scheduled PRN Pantoprazole (Pantoprazole Sodium), 40 MG PO DAILY PRN for Indigestion Current Inpatient Medications Current Inpatient Medications Medications (Trade) Dose Ordered Sig/Garcia Route Start Time Stop Time Status Last Admin Dose Admin Acetaminophen (Tylenol Tab) 650 mg Q4H PRN PO 11/20/17 03:30 12/20/17 03:29 Nitroglycerin (Nitrostat Tab) 0.4 mg UD PRN SL 11/20/17 03:30 12/20/17 03:29 Ondansetron HCl (Zofran Odt) 8 mg Q6H PRN PO 11/20/17 03:45 12/20/17 03:44 Furosemide 40 mg/ Syringe 4 ml @ 4 mls/min QAM IV 11/20/17 09:00 12/20/17 08:59 11/20/17 08:16 4 MLS/MIN Escitalopram Oxalate (Lexapro Tab) 10 mg DAILY PO 11/20/17 09:00 12/20/17 08:59 11/20/17 08:17 10 MG Metoprolol Tartrate (Lopressor Tab) 12.5 mg BID PO 11/20/17 09:00 12/20/17 08:59 11/20/17 08:17 12.5 MG Pantoprazole Sodium (Protonix Tab) 40 mg DAILY PRN PO 11/20/17 03:45 12/20/17 03:44 11/20/17 08:18 40 MG Warfarin Sodium (Coumadin Tab) 2.5 mg DAILY@1600 PO 11/20/17 16:00 12/20/17 15:59 Miscellaneous Information (Order Awaiting Action) 1 ea QS N/A 11/20/17 08:00 12/20/17 07:59 Miscellaneous (Iv Fluids Completed) 1 ea PRN PRN N/A 11/20/17 06:45 11/20/18 06:44 Review of Systems Constitutional: Negative for weight loss, night sweats, or fever Eyes: Negative for event change of vision ENT: Negative for epistaxis, nasal discharge, sore throat, or deafness Cardiovascular: Negative for dizziness, diaphoresis Respiratory: Negative for hemoptysis, or purulent cough Gastrointestinal: Negative for significant diarrhea, hematemesis, melena, nausea, vomiting, or dyspepsia Integumentary (skin): Negative for rash or jaundice discoloration Genitourinary: Negative for urinary frequency, hematuria, or dysuria Neurological: Negative for weakness, seizure activity, headache, or dizziness Lymphatic/Hematologic: Negative for petechiae, bleeding or new adenopathy Musculoskeletal: Negative for new joint or back pain Allergic/Immunologic: Negative for unusual rash or pruritis. Physical Exam Date Time Temp Pulse Resp B/P (MAP) Pulse Ox O2 Delivery O2 Flow Rate FiO2 11/20/17 11:35 36.9 65 18 142/74 (96) 95 11/20/17 07:40 36.9 69 18 144/75 (98) 96 11/20/17 04:45 36.6 103 130/71 Room Air 11/20/17 04:34 69 20 132/71 96 11/20/17 03:33 68 16 130/66 95 Room Air 11/20/17 01:46 76 22 131/64 95 Room Air 11/20/17 00:40 36.7 71 25 119/71 97 Room Air Constitutional: vitals are stable. Patient appears very comfortable. Eyes: Eyes are EMMY EOMI without conjuctival erythema or icterus. ENT: External examination was negative for masses. Neck: Negative for masses or palpable thyromegaly Respiratory: Lung sounds were generally clear bilaterally Cardiovascular: Heart was RRR without significant murmur, gallops aoe rubs Gastrointestinal: No palpable hepatic or splenomegaly. The abdomen was soft with normal bowel sounds. Lymphatic system: there was no palpable peripheral lymphadenopathy Musculoskeletal System: The musculoskeletal system seemed concordant with age. Skin: The skin was negative for jaundice. Neurologic exam: The exam was negative for any focal findings. Deep tendon reflexes were equal and symmetrical. Psychiatric exam: Was essentially negative with normal mood and effect. Extremities: negative for edems Laboratory Results Last 24 Hours Test 11/20/17 01:05 11/20/17 03:23 11/20/17 04:30 11/20/17 06:30 White Blood Count 3.38 K/uL Red Blood Count 3.70 M/uL Hemoglobin 13.2 g/dL Hematocrit 37.4 % Mean Corpuscular Volume 101.1 fL Mean Corpuscular Hemoglobin 35.7 pg Mean Corpuscular Hemoglobin Concent 35.3 g/dl Platelet Count 108 K/uL Mean Platelet Volume 9.6 fL Neutrophils (%) (Auto) 81.8 % Lymphocytes (%) (Auto) 10.4 % Monocytes (%) (Auto) 3.3 % Eosinophils (%) (Auto) 2.7 % Basophils (%) (Auto) 0.3 % Neutrophils # (Auto) 2.77 K/uL Lymphocytes # (Auto) 0.35 K/uL Monocytes # (Auto) 0.11 K/uL Eosinophils # (Auto) 0.09 K/uL Basophils # (Auto) 0.01 K/uL RDW Standard Deviation 53.9 fL RDW Coefficient of Variation 14.8 % Immature Granulocyte % (Auto) 1.5 % Immature Granulocyte # (Auto) 0.05 K/uL Prothrombin Time 20.6 SECONDS Prothromb Time International Ratio 2.0 Activated Partial Thromboplast Time 42.8 SECONDS Partial Thromboplastin Ratio 1.6 Sodium Level 135 mmol/L Potassium Level 4.6 mmol/L Chloride Level 104 mmol/L Carbon Dioxide Level 22 mmol/L Anion Gap 9.0 mmol/L Blood Urea Nitrogen 25 mg/dl Creatinine 1.63 mg/dl Est Creatinine Clear Calc Drug Dose 68.3 ml/min Estimated GFR () 57.3 Estimated GFR (Non- 49.4 BUN/Creatinine Ratio 15.6 Random Glucose 332 mg/dl Calcium Level 9.2 mg/dl Magnesium Level 1.9 mg/dl Total Creatine Kinase 41 U/L Creatine Kinase MB 1.6 ng/ml Creatine Kinase MB Ratio 3.9 Troponin I 0.120 ng/ml Pro-B-Type Natriuretic Peptide 5042 pg/ml Beta-Hydroxybutyric Acid mg/dL Bedside Glucose 231 mg/dl 292 mg/dl 248 mg/dl Test 11/20/17 11:26 11/20/17 11:29 11/20/17 11:52 Bedside Glucose 230 mg/dl Troponin I 0.087 ng/ml Total Creatine Kinase 31 U/L Creatine Kinase MB 1.6 ng/ml Creatine Kinase MB Ratio 5.2 Assessment & Plan Lambda multiple myeloma. He is status post bone marrow transplant with relapsed disease. Since approximately July of last year he has been on pomalidomide along with weekly Decadron. The pomalidomide dose is 4 mg a day for 21 days and then 1 week off. Decadron is 20 mg once a week. He is currently approaching the end of his prior cycle of pomalidomide. That would end on Tuesday. Because of a further rise in his lambda light chain recently, I did add Velcade to his therapy 2 weeks ago that is given weekly subcu. His CBC is acceptable for another dose tomorrow. Recent repeat lambda light chains are mildly better and hopefully that is a trend in the right direction. We will update those blood tests while he is here. I would like to administer Velcade tomorrow unless consultants and/or hospitalist have an objection and/or whether he is an inpatient or discharged to receive this in our clinic (he is currently on the schedule to receive this tomorrow in our clinic). We will look for cardiology thoughts. He states that he feels generally better today after receiving Lasix.
--- NOTE | 2017-11-20 14:33 | Cardiology Consultation ---
Cardiology Consultation Date of Consultation: Nov 20, 2017. Requesting Physician: Dr. Almanzar Reason for Consultation: CHF Pt evaluation today including: conversation w/ patient, physical exam, lab review, review of studies, review of inpatient medication list, conversation w/ attending History of Present Illness This is a 47-year-old gentleman followed by Dr. Broussard in the office. He has a history of multiple myeloma as well as left ventricular hypertrophy and diastolic heart failure although with symptoms of shortness of breath he may have had a lung infection recently. He has severe left ventricular hypertrophy , however he has been felt to be at low risk for amyloid cardiomyopathy. He also has a history of atrial fibrillation, this is paroxysmal and he was on amiodarone but tells me that he could not tolerate it. He was recently evaluated at [facility] for atrial fibrillation ablation, but he tells me that they have decided not to do it. He was admitted with shortness of breath on November 20, 2017, this had been progressive over about 1-2 weeks, he tells me coincident with running out of diuretic (Lasix). He is being diuresed and feels better today. His weight is similar to what it was during his last admission in October 2017. He tells me that he feels much better, he can take a full breath now and does not have orthopnea, significantly improved even after what appears to be mild diuresis. Past Medical/Surgical History (1) Multiple myeloma (2) New onset atrial fibrillation Family History Not known due to adoption Social History Smoking Status: Never Smoker History of Alcohol Use: No Review of Systems Constitutional: No fever, No weight loss, No weakness Respiratory: + see HPI, + cough, + sputum, + shortness of breath, + dyspnea on exertion Cardiac: + orthopnea, No chest pain, No PND, No edema, No palpitations Abdomen: + see HPI, No pain, No nausea, No vomiting, No diarrhea, No GI bleeding Male : No urinary frequency, No nocturia more than once/night, No slowing stream, No sexual dysfunction Neurologic: No paralysis, No weakness, No numbness/tingling, No balance problems Heme: No abnormal bleeding/bruising, No clotting problems Endo: No fatigue Skin: No problem reported All Other Systems: Reviewed and Negative Allergies Coded Allergies: No Known Allergies (Unverified , 11/20/17) Medications Current Inpatient Medications Medications (Trade) Dose Ordered Sig/Garcia Route Start Time Stop Time Status Last Admin Dose Admin Acetaminophen (Tylenol Tab) 650 mg Q4H PRN PO 11/20/17 03:30 12/20/17 03:29 Nitroglycerin (Nitrostat Tab) 0.4 mg UD PRN SL 11/20/17 03:30 12/20/17 03:29 Ondansetron HCl (Zofran Odt) 8 mg Q6H PRN PO 11/20/17 03:45 12/20/17 03:44 Furosemide 40 mg/ Syringe 4 ml @ 4 mls/min QAM IV 11/20/17 09:00 12/20/17 08:59 11/20/17 08:16 4 MLS/MIN Escitalopram Oxalate (Lexapro Tab) 10 mg DAILY PO 11/20/17 09:00 12/20/17 08:59 11/20/17 08:17 10 MG Metoprolol Tartrate (Lopressor Tab) 12.5 mg BID PO 11/20/17 09:00 12/20/17 08:59 11/20/17 08:17 12.5 MG Pantoprazole Sodium (Protonix Tab) 40 mg DAILY PRN PO 11/20/17 03:45 12/20/17 03:44 11/20/17 08:18 40 MG Warfarin Sodium (Coumadin Tab) 2.5 mg DAILY@1600 PO 11/20/17 16:00 12/20/17 15:59 Miscellaneous Information (Order Awaiting Action) 1 ea QS N/A 11/20/17 08:00 12/20/17 07:59 Miscellaneous (Iv Fluids Completed) 1 ea PRN PRN N/A 11/20/17 06:45 11/20/18 06:44 Physical Exam Vital Signs Past 12 Hours Date Time Temp Pulse Resp B/P (MAP) Pulse Ox O2 Delivery O2 Flow Rate FiO2 11/20/17 11:35 36.9 65 18 142/74 (96) 95 11/20/17 07:40 36.9 69 18 144/75 (98) 96 11/20/17 04:45 36.6 103 130/71 Room Air 11/20/17 04:34 69 20 132/71 96 11/20/17 03:33 68 16 130/66 95 Room Air Constitutional: General Apperance: heathly-appearing Level of Distress: NAD Psychiatric: Mental Status: active & alert Head: normocephalic Eyes: EOM: EOMI ENMT: normal ENT inspection, hearing grossly normal Neck: supple, no masses Lungs: Respiratory effort: no dyspnea, good air movement Auscultation: breath sounds normal, no wheezing Cardiovascular: Heart Auscultation: RRR, no murmurs, no rubs, no gallops Peripheral Pulses: Bruits: none appreciated Abdomen: Bowel Sounds: normal Inspection & Palpation: soft, no tenderness, guarding & rebound, no masses Musculoskeletal: normal strength (5/5 throughout) Extremities: no edema Neurologic: Cranial Nerves: grossly intact Sensation: grossly intact Data Laboratory Results: Last 24 Hours Test 11/20/17 01:05 11/20/17 03:23 11/20/17 04:30 11/20/17 06:30 White Blood Count 3.38 K/uL Red Blood Count 3.70 M/uL Hemoglobin 13.2 g/dL Hematocrit 37.4 % Mean Corpuscular Volume 101.1 fL Mean Corpuscular Hemoglobin 35.7 pg Mean Corpuscular Hemoglobin Concent 35.3 g/dl Platelet Count 108 K/uL Mean Platelet Volume 9.6 fL Neutrophils (%) (Auto) 81.8 % Lymphocytes (%) (Auto) 10.4 % Monocytes (%) (Auto) 3.3 % Eosinophils (%) (Auto) 2.7 % Basophils (%) (Auto) 0.3 % Neutrophils # (Auto) 2.77 K/uL Lymphocytes # (Auto) 0.35 K/uL Monocytes # (Auto) 0.11 K/uL Eosinophils # (Auto) 0.09 K/uL Basophils # (Auto) 0.01 K/uL RDW Standard Deviation 53.9 fL RDW Coefficient of Variation 14.8 % Immature Granulocyte % (Auto) 1.5 % Immature Granulocyte # (Auto) 0.05 K/uL Prothrombin Time 20.6 SECONDS Prothromb Time International Ratio 2.0 Activated Partial Thromboplast Time 42.8 SECONDS Partial Thromboplastin Ratio 1.6 Sodium Level 135 mmol/L Potassium Level 4.6 mmol/L Chloride Level 104 mmol/L Carbon Dioxide Level 22 mmol/L Anion Gap 9.0 mmol/L Blood Urea Nitrogen 25 mg/dl Creatinine 1.63 mg/dl Est Creatinine Clear Calc Drug Dose 68.3 ml/min Estimated GFR () 57.3 Estimated GFR (Non- 49.4 BUN/Creatinine Ratio 15.6 Random Glucose 332 mg/dl Calcium Level 9.2 mg/dl Magnesium Level 1.9 mg/dl Total Creatine Kinase 41 U/L Creatine Kinase MB 1.6 ng/ml Creatine Kinase MB Ratio 3.9 Troponin I 0.120 ng/ml Pro-B-Type Natriuretic Peptide 5042 pg/ml Beta-Hydroxybutyric Acid mg/dL Bedside Glucose 231 mg/dl 292 mg/dl 248 mg/dl Test 11/20/17 11:26 11/20/17 11:29 11/20/17 11:52 11/20/17 13:44 Bedside Glucose 230 mg/dl Troponin I 0.087 ng/ml Total Creatine Kinase 31 U/L Creatine Kinase MB 1.6 ng/ml Creatine Kinase MB Ratio 5.2 Imaging: His chest x-ray is consistent with congestive heart failure to mild degree or an inflammatory process. EKG: Sinus rhythm with marked inferolateral T-wave inversion, similar to prior Telemetry reviewed: Sinus rhythm, no significant arrhythmia Assessment & Plan 1. Elevated troponin: His troponin is minimally elevated, similar to his last visit. I suspect this is demand ischemia, this could occur even in the absence of coronary artery disease. I probably would not pursue further now. 2. Paroxysmal atrial fibrillation: He is in sinus rhythm, he is no longer on amiodarone due to side effects and evidently is not getting an ablation. He may have further difficulty with atrial fibrillation in the future. For the moment however I would continue anticoagulation and leave things as they are. 3. Congestive heart failure: He seems to have developed congestive heart failure, his weight is similar to what it was last visit but he had progressive dyspnea and orthopnea and feels better now with diuresis. His renal function may be an issue, his BUN and creatinine were normal when he was admitted but then deteriorated somewhat, and now with diuresis his creatinine is increasing again. I would be cautious with diuresis but it seems that he needs diuresis but we do not worsen his BUN and creatinine. Consider nephrology consultation, there is no clear explanation for his renal insufficiency. 4. Left ventricular hypertrophy: This is no doubt contributing to his diastolic dysfunction, there is little we can do for this other than medical therapy. He is anxious to go home, however if he goes home now he may be back quickly although he feels that if he stays on Lasix he will be able to manage at home. Thank you for allowing me to participate in his care.
[2017-11-20] MEDS ORDERED: FURO20TA PO (15:42)
--- NOTE | 2017-11-20 15:44 | Discharge Instructions ---
Discharge Instructions Date of Service Nov 20, 2017. Admission Reason for Admission: Bilateral Pleural Effusion, Elevated Troponin Discharge Discharge Diagnosis / Problem: CHF exacerbation Discharge Goals Goal(s): Decrease discomfort, Improve function, Increase independence Activity Recommendations Activity Limitations: resume your previous activity . Instructions / Follow-Up Instructions / Follow-Up It is very important that you take your lasix daily. If you run out of this medication, you should call your PCP or can carrier for a refill TOSHA so as to not miss any doses. You should follow up with Dr. Estrada tomorrow as scheduled prior. You should follow up with Dr. Johnson on 11/25 as scheduled prior Call your Primary Care doctor if any of the following symptoms or problems start or get worse: * Shortness of breath or difficulty breathing * Wake up at night short of breath * Chest pain * Cough * Swelling of your hands, feet, or legs * More fatigued or tired with your normal activity * Palpitations - sudden fast heart beats WEIGHT * Weigh yourself every morning after using the bathroom. * Use the same scale. * Wear the same amount of clothing. * Write your weight down on a chart. * Call your Primary Care doctor if you gain more than 2-3 pounds in 1-2 days. MEDICATIONS * Use this discharge instruction sheet for medication instructions. * Take your medications at the time your doctor ordered. * Do not skip a dose of your medicines. * If you miss a dose of medicine, take it as soon as possible, but DO NOT DOUBLE A DOSE. * Read your medicine information when you get home. * Know all of the side effects of your medicine. If in doubt, ask your pharmacist * Call your Primary Care doctor's office if you have any side effects. * Be sure all of your doctors know what medicine and herbs you take (including cold, flu, and herbal medicine). Take the following with you to your follow-up doctor appointments: * Weight Chart * Medication List * List of questions Do not drink excessive alcohol, beer or wine. Current Hospital Diet Patient's current hospital diet: AHA Diet (Heart Healthy), Diabetes Type 2 Diet Discharge Diet Recommended Diet: Regular Diet Pending Studies Studies pending at discharge: yes List of pending studies: Multiple myeloma related labs Laboratory Results Hemoglobin A1c Test 09/13/17 07:17 Range/Units Estimated Average Glucose 146 mg/dl Hemoglobin A1c 6.7 H 4.5-5.6 % Lipid Panel Test 09/14/17 06:29 Range/Units Triglycerides Level 199 H 0-150 mg/dl Cholesterol Level 160 0-200 mg/dl HDL Cholesterol 49 mg/dl Cholesterol/HDL Ratio 3.3 LDL Cholesterol, Calculated 71 mg/dl Medical Emergencies . Who to Call and When: Call 911 or go to the Emergency Room if: * If at any time you feel your situation is an emergency * You have tightness or pain in your chest that does not go away with rest or Nitroglycerin * You are very short of breath even with rest . Non-Emergent Contact Non-Emergency issues call your: Primary Care Provider, [employer] . . "Provider Documentation" section prepared by Sarika Hodges. .
[2017-11-20 15:48] VITALS: BP 142/74; PULSE 65; TEMP 36.9; O2SAT 95
--- NOTE | 2017-11-20 15:54 | Discharge Summary ---
Discharge Summary Date of Service Nov 20, 2017. Discharge Summary Admission Date: Nov 20, 2017 at 03:35 Discharge Date: Nov 20, 2017 Discharge Disposition: Home Principal Diagnosis: CHF exacerbation Problems/Secondary Diagnoses: Acute renal insufficiency Elevated trop Fer, on coumadin Amyloidosis Multiple myeloma s/p BMT and ongoing chemo Immunizations: Have You Had Influenza Vaccine: Unknown History of Tetanus Vaccine?: Yes History of Pneumococcal: No History of Hepatitis B Vaccine: No Consultations: Dr. Akshat Estrada Medication Reconciliation New Medications: Furosemide (Lasix) 20 Mg Tab 20 MG PO DAILY for 30 Days, #30 TAB 1 Refill Continued Medications: Albuterol Sulfate (Proair Respiclick) 108 Mcg/Act Aer 1-4 PUFFS INH UD for 30 Days, #1 INHALER 4 puffs q4hrs scheduled day 1 2 puff q4hrs scheduled day 2 2 puffs q2hrs prn SOB Amoxicillin & Pot Clavulanate (Augmentin 875-125 mg) 1 Tab Tab 1 TAB PO BID for 10 Days, #20 TAB Bortezomib (Velcade) 1 Mg/Ml Inj 1 DOSE INJ WK mondays Dexamethasone (Decadron) 4 Mg Tab 20 MG PO WK TAKES ON SATURDAYS Escitalopram (Lexapro) 10 Mg Tab 10 MG PO DAILY, TAB Metoprolol Tartrate (Lopressor) (Lopressor) 25 Mg Tab 12.5 MG PO BID for 90 Days, #90 TAB 1 Refill Pantoprazole (Pantoprazole Sodium) 40 Mg Tab 40 MG PO DAILY PRN for Indigestion Pomalidomide (Pomalyst) 4 Mg Cap 4 MG PO DAILY PT TAKES FOR 21DAYS THEN OFF FOR 7DAYS. PT DUE TO START OFF DAYS NEXT WEEK Warfarin Sod (Jantoven) 5 Mg Tab 2.5 MG PO DAILY, TAB Discharge Exam Pt is doing well. No further SOB s/p resuming lasix. Pt states he felt well s/ p d/c and was taking his lasix daily, however he ran out and did not know it was a medication that he should be continuing. He did not call for refills. Pt denies fever, chest pain, abd pain, n/v/c/d, LE pain or swelling. Tolerating PO without issue. Physical Exam: General Appearance: WD/WN, no apparent distress Eyes: normal inspection, sclerae normal Respiratory/Chest: normal breath sounds, no respiratory distress Cardiovascular: regular rate, rhythm, no edema Abdomen / GI: non tender, soft Extremities: no calf tenderness, no pedal edema Neurologic/Psychiatric: alert, normal mood/affect, oriented x 3 Skin: normal color, warm/dry Hospital Course Acute on chronic diastolic CHF/pleural effusions/atrial fibrillation--Pt did not realize that he should be continuing lasix and has been off of his lasix x2 weeks after running out Sx resolved with lasix dosing, discussed duration of medication with pt Continue metoprolol tartrate 12.5 mg p.o. twice daily, and warfarin 2.5 mg p.o. daily. Nuclear stress and ECHO in September, and will not repeat Minimally elevated trop at 0.12 with repeats trending down, likely demand ischemia INR on d/c is 2.0 Hyperglycemia-- Secondary to Decadron 20 mg dose just taken [employer] Monitor Chronic kidney disease-- Creatinine 1.63 on admission, and follow serially while being diuresed. Creatinine range has been 1.2-2.6 over the past year This is likely related to pomalyst dosing and oncology is following his cr He has labs done weekly He is on 21 on/7off pomalyst cycling and this current 21 day is set to end on Multiple myeloma status post BMT in 2014-- Continue usual regimen of pomalidomide [address] Estrada. Anxiety with depression-- Continue Lexapro 10 mg p.o. daily. Total Time Spent: Greater than 30 minutes This includes examination of the patient, discharge planning, medication reconciliation, and communication with other providers. Discharge Instructions Please refer to the electronic Patient Visit Report (Discharge Instructions) for additional information. Follow-Up Dr. Estrada tomorrow as scheduled prior. Dr. Johnson on 11/25 as scheduled prior Additional Copies To Jc Quan M.D.
[2017-11-20] MEDS ORDERED: WARFARIN SOD 2.5 MG TAB PO SCH (16:00)
== END 2017-11-20 16:25 | disposition home or self-care (01) ==
LOC: C.EDB 00:35 → C.2T 03:35 → EDBEDREQ 03:44 → ENRESERV 04:18
PROVIDERS: ADMIT Hospitalist; ATTEND Family Medicine
DX: I50.43 Acute on chronic combined systolic (congestive) and diastolic (congestive) heart failure (principal); R73.9 Hyperglycemia, unspecified; I48.0 Paroxysmal atrial fibrillation; N28.9 Disorder of kidney and ureter, unspecified; R79.89 Other specified abnormal findings of blood chemistry; E85.9 Amyloidosis, unspecified; C90.00 Multiple myeloma not having achieved remission; F32.9 Major depressive disorder, single episode, unspecified; Z94.81 Bone marrow transplant status; Z92.21 Personal history of antineoplastic chemotherapy; Z79.01 Long term (current) use of anticoagulants

== ENCOUNTER 2017-11-24 15:11 | Observation (INO) | payer BC ==
[~2017-11-24] VITALS: Ht 175.3 cm; Wt 103.7 kg
[~2017-11-24 15:11] MED LIST changes: -BENZ100C7 PO; +FURO20TA PO; -LSX20 PO
--- NOTE | 2017-11-24 15:53 | DIAGNOSTIC IMAGING REPORT ---
CHEST ONE VIEW PORTABLE HISTORY: 47 years-old Male SOB acute shortness of breath COMPARISON: Chest radiograph 11/20/2017 TECHNIQUE: Portable AP view of the chest FINDINGS: Cardiac silhouette is enlarged, unchanged. There is persistent mild pulmonary edema with trace bilateral pleural effusions and bibasilar opacities suggesting atelectasis/alveolar pulmonary edema. No pneumothorax. Bones appear grossly intact. IMPRESSION: Unchanged appearance of mild pulmonary edema with trace bilateral pleural effusions. The above report was generated using voice recognition software. It may contain grammatical, syntax or spelling errors. Electronically signed by: Daniel Larry M.D. 11/24/2017 3:52 PM Dictated Date/Time: 11/24/2017 3:48 PM
--- NOTE | 2017-11-24 15:59 | EMERGENCY ROOM VISIT NOTE ---
History Report prepared by Felisa: Yusuf Humphries Under the Supervision of: Dr. Abraham Contreras M.D. First contact with patient: 15:33 Chief Complaint: SHORTNESS OF BREATH Stated Complaint: SOB, DIZZINESS, CHEST TIGHTNESS Nursing Triage Summary: Patient with c/o Shortness of breath starting yesterday. States when he walks he gets more SOB and has chest tightness but denies chest pain at the current moment. History of Present Illness The patient is a 47 year old male who presents to the Emergency Room with complaints of shortness of breath that has progressively worsening since his discharge from an inpatient stay on Tuesday, three days ago. Per the patient's the patient has recently been diagnosed with Pleural Effusions and placed on Lasix. She notes that the Lasix do not seem to be helping him with the shortness of breath and he has not had any increased urine output. His shortness of breath is worsened with exertion. The patient had an inpatient stay in October prior to last week, for shortness of breath as well. He was also diagnosed with Multiple Myeloma in 2013 and is on Chronic Chemotherapy. This chemotherapy has caused Amyloidosis. The patient was febrile upon arrival to the ED. The patient's continued to mention that there have been some Hypoglycemic Sugar levels recent. This has been attributed to the chronic steroid use and he has not been formally diagnosed with Diabetes. Source of History: patient, family Onset: 3 days ago Quality: other (SOB) Timing: worsening Modifying Factors (Worsening): exertion Associated Symptoms: + fevers Review of Systems See HPI for pertinent positives & negatives. A total of 10 systems reviewed and were otherwise negative. Past Medical & Surgical Medical Problems: (1) Diastolic CHF, acute (2) Exertional dyspnea (3) GERD (gastroesophageal reflux disease) (4) H/O autologous stem cell transplant (5) History of autologous stem cell transplant (6) Hypertension (7) senior living (current) use of anticoagulants (8) Multiple myeloma (9) New onset atrial fibrillation Surgical Problems: (1) History of autologous stem cell transplant Family History Not known due to adoption Social History Smoking Status: Never Smoker Drug Use: none Marital Status: Occupation Status: employed Current/Historical Medications Scheduled Albuterol Sulfate (Proair Respiclick), 1-4 PUFFS INH UD Bortezomib (Velcade), 1 DOSE INJ WK Dexamethasone (Decadron), 20 MG PO WK Escitalopram (Lexapro), 10 MG PO DAILY Furosemide (Lasix), 20 MG PO DAILY Metoprolol Tartrate (Lopressor) (Lopressor), 12.5 MG PO BID Pomalidomide (Pomalyst), 4 MG PO DAILY Warfarin Sod (Jantoven), 2.5 MG PO DAILY Scheduled PRN Pantoprazole (Pantoprazole Sodium), 40 MG PO DAILY PRN for Indigestion Allergies Coded Allergies: No Known Allergies (Unverified , 11/24/17) Physical Exam Vital Signs Date Time Temp Pulse Resp B/P (MAP) Pulse Ox O2 Delivery O2 Flow Rate FiO2 11/24/17 18:30 75 18 125/61 98 Room Air 11/24/17 16:30 73 18 136/57 97 Room Air 11/24/17 16:07 96 Room Air 11/24/17 16:07 96 Room Air 11/24/17 15:45 78 11/24/17 15:17 Room Air 11/24/17 15:14 37.8 77 18 112/70 93 Room Air Physical Exam GENERAL: Awake, alert, well-appearing, in no acute distress. Appears SOB on exam. HENT: Normocephalic, atraumatic. Oropharynx unremarkable. EYES: Normal conjunctiva. Sclera non-icteric. NECK: Supple. No nuchal rigidity. FROM. No JVD. RESPIRATORY: Clear to auscultation. Appears SOB on exam. CARDIAC: Regular rate, normal rhythm. Extremities warm and well perfused. Pulses equal. ABDOMEN: Soft, non-distended. No tenderness to palpation. No rebound or guarding. No masses. RECTAL: Deferred. MUSCULOSKELETAL: Chest examination reveals no tenderness. The back is symmetrical on inspection without obvious abnormality. There is no CVA tenderness to palpation. No joint edema. LOWER EXTREMITIES: Calves are equal size bilaterally and non-tender. No edema. No discoloration. NEURO: Normal sensorium. No sensory or motor deficits noted. SKIN: No rash or jaundice noted. Medical Decision & Procedures ER Provider Diagnostic Interpretation: Radiology results as stated below per my review and radiologist interpretation: (CHEST FOR PE) ANGIO WITH CT DOSE: 559.46 mGycm HISTORY: 47 years-old Male with presents with acute atypical chest pain. TECHNIQUE: Multiple CTA images of the chest were obtained after the intravenous administration of 120 ml Optiray 320. Coronal and sagittal MIPS were obtained from the axial data set and were submitted for review. A dose lowering technique was utilized adhering to the principles of ALARA. COMPARISON: Chest radiograph 11/24/2017, CTA chest 10/12/2017. FINDINGS: CTA: There is multichamber cardiac enlargement, mild to moderate. Trace pericardial effusion. Coronary arterial calcifications are noted. The left heart structures are not well opacified secondary to contrast bolus timing. Thoracic aorta appears normal in both course and caliber without aneurysm or dissection identified. The imaged great vessels appear to be patent. There is reflux of contrast into the IVC and hepatic veins. The pulmonary arterial tree is opacified to level of the distal segmental branches and demonstrates no focal filling defects to suggest pulmonary thromboembolic disease. CT CHEST: Moderate sized bilateral layering pleural effusions. No pneumothorax. There is mild bilateral interlobular septal thickening with thickening of the bronchovascular bundles compatible with interstitial pulmonary edema. Linear subsegmental groundglass and consolidative opacities involve the bilateral lung bases suggesting areas of atelectasis. Central airways are patent. No acute abnormality of the imaged upper abdomen. Soft tissues are unremarkable. Heterogeneous appearance of the bone marrow is redemonstrated with multiple ill-defined subcentimeter lucent foci appearing unchanged. These lesions are seen most prominently within the vertebral bodies. IMPRESSION: 1. No acute aortic pathology or evidence of pulmonary thromboembolic disease. 2. Cardiomegaly with interstitial pulmonary edema, trace pericardial effusion with moderate bilateral pleural effusions. 3. Subsegmental right greater than left groundglass and consolidative opacities of the lung bases suggest areas of atelectasis. 4. Heterogeneous appearance of the bone marrow with multiple ill-defined subcentimeter lucent foci seen most prominently within the vertebral bodies again suspicious for marrow replacing process. Differential considerations would include lymphoma, metastatic disease or multiple myeloma. 5. Coronary arterial disease. The above report was generated using voice recognition software. It may contain grammatical, syntax or spelling errors. Electronically signed by: Daniel Larry M.D. 11/24/2017 5:58 PM Dictated Date/Time: 11/24/2017 5:48 PM CHEST ONE VIEW PORTABLE HISTORY: 47 years-old Male SOB acute shortness of breath COMPARISON: Chest radiograph 11/20/2017 TECHNIQUE: Portable AP view of the chest FINDINGS: Cardiac silhouette is enlarged, unchanged. There is persistent mild pulmonary edema with trace bilateral pleural effusions and bibasilar opacities suggesting atelectasis/alveolar pulmonary edema. No pneumothorax. Bones appear grossly intact. IMPRESSION: Unchanged appearance of mild pulmonary edema with trace bilateral pleural effusions. The above report was generated using voice recognition software. It may contain grammatical, syntax or spelling errors. Electronically signed by: Daniel Larry M.D. 11/24/2017 3:52 PM Dictated Date/Time: 11/24/2017 3:48 PM Laboratory Results 11/24/17 15:25 11/24/17 15:25 Test 11/24/17 15:25 11/24/17 16:19 11/24/17 17:31 Red Blood Count 3.89 M/uL (4.7-6.1) Mean Corpuscular Volume 101.8 fL (80-100) Mean Corpuscular Hemoglobin 35.2 pg (25-34) Mean Corpuscular Hemoglobin Concent 34.6 g/dl (32-36) RDW Standard Deviation 53.4 fL (36.4-46.3) RDW Coefficient of Variation 14.6 % (11.5-14.5) Mean Platelet Volume 11.2 fL (7.4-10.4) Nucleated RBC Absolute Count (auto) 0.05 K/uL (0-0) Nucleated Red Blood Cells % 1.1 % Prothrombin Time 17.7 SECONDS (9.0-12.0) Prothromb Time International Ratio 1.7 (0.9-1.1) Activated Partial Thromboplast Time 34.0 SECONDS (21.0-31.0) Partial Thromboplastin Ratio 1.3 Anion Gap 8.0 mmol/L (3-11) Est Creatinine Clear Calc Drug Dose 80.9 ml/min Estimated GFR () 70.7 Estimated GFR (Non- 61.0 BUN/Creatinine Ratio 16.3 (10-20) Calcium Level 8.6 mg/dl (8.5-10.1) Total Bilirubin 0.5 mg/dl (0.2-1) Aspartate Amino Transf (AST/SGOT) 24 U/L (15-37) Alanine Aminotransferase (ALT/SGPT) 95 U/L (12-78) Alkaline Phosphatase 80 U/L (45-117) Total Creatine Kinase 35 U/L (39-308) Creatine Kinase MB 2.2 ng/ml (0.5-3.6) Creatine Kinase MB Ratio 6.3 (0-3.0) Total Protein 6.2 gm/dl (6.4-8.2) Albumin 3.0 gm/dl (3.4-5.0) Globulin 3.2 gm/dl (2.5-4.0) Albumin/Globulin Ratio 0.9 (0.9-2) Influenza Type A Antigen Neg for Influ A (NEG) Influenza Type B Antigen Neg for Influ B (NEG) Bedside Troponin I 0.060 ng/ml (0-0.045) Labs reviewed by ED physician. ECG Per My Interpretation Indication: SOB/dyspnea Rate (beats per minute): 76 Rhythm: normal sinus Findings: T-wave inversion (Lateral), other (no REA/STD) Change: REPEAT EKG SHOWS: NSR 75 T-wave inversions in the Lateral Leads, unchanged from previous. ED Course 1548: Past medical records reviewed. The patient was evaluated in room B9. A complete history and physical examination was performed. 180: I discussed the case with Dr. Sarika Patel Va Hospitalist. She will evaluate the patient for further treatment. Medical Decision Differential diagnosis: Etiologies such as infections, pleural effusions, reactive airway disease, pneumonia, pneumothorax, COPD, CHF, cardiac ischemia, pulmonary embolism, musculoskeletal, gastrointestinal, as well as others were entertained. This is a 47-year-old male presents emergency department complaining shortness of breath. The patient is being treated for multiple myeloma. His troponin was noted to be elevated here. His EKG is unchanged. Repeat troponin showed the troponin to be elevating. For this reason I did discuss the case with the hospitalist service to agree to admit the patient. Patient was in agreement with the treatment plan. Medication Reconcilliation Current Medication List: was personally reviewed by me Blood Pressure Screening Patient's blood pressure: Elevated blood pressure Referred to hospitalist. Consults Time Called: 1800 Consulting Physician: Dr. Sarika Patel Hospitalist Returned Call: [phone] I discussed the case with Dr. Sarika Patel Hospitalist. She will evaluate the patient for further treatment. Impression Primary Impression: Precordial chest pain Scribe Attestation The scribe's documentation has been prepared under my direction and personally reviewed by me in its entirety. I confirm that the note above accurately reflects all work, treatment, procedures, and medical decision making performed by me. Departure Information Dispostion Being Evaluated By Hospitalist Jc Loza M.D. (PCP) Patient Instructions My [facility]
[2017-11-24 16:01] LABS: HEMATOCRIT 39.6 % (42-52); HEMOGLOBIN 13.7 g/dL (14.0-18.0); MEAN CELL VOLUME 101.8 fL (80-100); MEAN CORPUSCULAR HEMOGLOBIN 35.2 pg (25-34); MEAN CORPUSCULAR HGB CONC 34.6 g/dl (32-36); MEAN PLATELET VOLUME 11.2 fL (7.4-10.4); NUCLEATED RED BLOOD CELL ABS 0.05 K/uL (0-0); PLATELET COUNT 118 K/uL (130-400); RED CELL DISTRIBUTION WIDTH CV 14.6 % (11.5-14.5); RED CELL DISTRIBUTION WIDTH SD 53.4 fL (36.4-46.3); WHITE BLOOD COUNT 4.39 K/uL (4.8-10.8)
[2017-11-24] MEDS ORDERED: OPTIRAY 320 IV PRN (16:15)
[2017-11-24 16:19] LABS: INR 1.7 (0.9-1.1)
[2017-11-24 16:28] LABS: CALCIUM 8.6 mg/dl (8.5-10.1); CREATININE 1.37 mg/dl (0.60-1.40); POTASSIUM 3.6 mmol/L (3.5-5.1)
[2017-11-24 16:33] LABS: CKMB 2.2 ng/ml (0.5-3.6); TOTAL PROTEIN 6.2 gm/dl (6.4-8.2)
[2017-11-24 17:28] LABS: INFLUENZA B ANTIGEN Neg for Influ B (NEG)
--- NOTE | 2017-11-24 17:59 | DIAGNOSTIC IMAGING REPORT ---
(CHEST FOR PE) ANGIO WITH CT DOSE: 559.46 mGycm HISTORY: 47 years-old Male with presents with acute atypical chest pain. TECHNIQUE: Multiple CTA images of the chest were obtained after the intravenous administration of 120 ml Optiray 320. Coronal and sagittal MIPS were obtained from the axial data set and were submitted for review. A dose lowering technique was utilized adhering to the principles of ALARA. COMPARISON: Chest radiograph 11/24/2017, CTA chest 10/12/2017. FINDINGS: CTA: There is multichamber cardiac enlargement, mild to moderate. Trace pericardial effusion. Coronary arterial calcifications are noted. The left heart structures are not well opacified secondary to contrast bolus timing. Thoracic aorta appears normal in both course and caliber without aneurysm or dissection identified. The imaged great vessels appear to be patent. There is reflux of contrast into the IVC and hepatic veins. The pulmonary arterial tree is opacified to level of the distal segmental branches and demonstrates no focal filling defects to suggest pulmonary thromboembolic disease. CT CHEST: Moderate sized bilateral layering pleural effusions. No pneumothorax. There is mild bilateral interlobular septal thickening with thickening of the bronchovascular bundles compatible with interstitial pulmonary edema. Linear subsegmental groundglass and consolidative opacities involve the bilateral lung bases suggesting areas of atelectasis. Central airways are patent. No acute abnormality of the imaged upper abdomen. Soft tissues are unremarkable. Heterogeneous appearance of the bone marrow is redemonstrated with multiple ill-defined subcentimeter lucent foci appearing unchanged. These lesions are seen most prominently within the vertebral bodies. IMPRESSION: 1. No acute aortic pathology or evidence of pulmonary thromboembolic disease. 2. Cardiomegaly with interstitial pulmonary edema, trace pericardial effusion with moderate bilateral pleural effusions. 3. Subsegmental right greater than left groundglass and consolidative opacities of the lung bases suggest areas of atelectasis. 4. Heterogeneous appearance of the bone marrow with multiple ill-defined subcentimeter lucent foci seen most prominently within the vertebral bodies again suspicious for marrow replacing process. Differential considerations would include lymphoma, metastatic disease or multiple myeloma. 5. Coronary arterial disease. The above report was generated using voice recognition software. It may contain grammatical, syntax or spelling errors. Electronically signed by: Daniel Larry M.D. 11/24/2017 5:58 PM Dictated Date/Time: 11/24/2017 5:48 PM
[2017-11-24] MEDS ORDERED: ONDANSETRON INJ 2 MG/ML 2 ML VIAL IV PRN (18:45)
[2017-11-24] MEDS ORDERED: ACETAMINOPHEN 325 MG TAB PO PRN (18:45)
[2017-11-24] MEDS ORDERED: MAGNESIUM HYDROXIDE SUSP 30 ML UDC PO PRN (18:45)
[2017-11-24] MEDS ORDERED: FUROSEMIDE INJ 40 MG in SYRINGE 0 ML IV ONE (18:45)
[2017-11-24] MEDS ORDERED: PANTOprazole SOD 40 MG TAB PO PRN (18:45)
--- NOTE | 2017-11-24 19:07 | History and Physical ---
History & Physical Date & Time of Service: Nov 24, 2017 at 18:42 Chief Complaint: Sob, Dizziness, Chest Tightness Primary Care Physician: Jc Quan M.D. History of Present Illness Source: patient, spouse 47 y/o M c/o SOB. Pt had been d/c'd on 10/18 for SOB that was determined to be new onset CHF. He was d/c'd on lasix, which he took until his script ran out. He did not take lasix for about 2 weeks and then noted a return of SOB. He was admitted on 11/19 for CHF again and felt at his usual s/p lasix dosing and resumed daily dosing. Pt was d/c'd on 11/20 for SOB that was thought to be related to stopped lasix use. He was restarted on lasix and has not missed any doses. He states that he felt fine until yesterday he noted SOB with exertion and it was worse today. Given his recent hx, he thought he should come to the ED for further eval. He has never had LE swelling with any of these episodes. He did have mild chest tightness with his SOB today, but that resolved once he sat down and he has had no return of this. He has been eating and drinking without issue. Pt had his 3rd dose of valcade on Tuesday. notes that the breathing issues seem to have started since starting pomalidomide. Pt denies fever, abd pain, n/v/c/d, LE pain. He was to have f/u with Dr. Johnson tomorrow for his CHF. Past Medical/Surgical History Multiple myeloma, s/p BMT and ongoing chemo Amyloidosis CHF Afib, on coumadin HTN Family History Family history was reviewed; no changes noted. Social History Smoking Status: Never Smoker Alcohol Use: none Drug Use: none Marital Status: Housing status: lives with family Occupational Status: employed Immunizations History of Influenza Vaccine: Unknown History of Tetanus Vaccine?: Yes History of Pneumococcal: No History of Hepatitis B Vaccine: No Allergies Coded Allergies: No Known Allergies (Unverified , 11/24/17) Home Medications Scheduled Albuterol Sulfate (Proair Respiclick), 1-4 PUFFS INH UD Bortezomib (Velcade), 1 DOSE INJ WK Dexamethasone (Decadron), 20 MG PO WK Escitalopram (Lexapro), 10 MG PO DAILY Furosemide (Lasix), 20 MG PO DAILY Metoprolol Tartrate (Lopressor) (Lopressor), 12.5 MG PO BID Pomalidomide (Pomalyst), 4 MG PO DAILY Warfarin Sod (Jantoven), 2.5 MG PO DAILY Scheduled PRN Pantoprazole (Pantoprazole Sodium), 40 MG PO DAILY PRN for Indigestion Review of Systems Pertinent positives and negatives reviewed in HPI--all others negative Physical Exam Vital Signs Date Time Temp Pulse Resp B/P (MAP) Pulse Ox O2 Delivery O2 Flow Rate FiO2 11/24/17 16:30 73 18 136/57 97 Room Air 11/24/17 16:07 96 Room Air 11/24/17 16:07 96 Room Air 11/24/17 15:45 78 11/24/17 15:17 Room Air 11/24/17 15:14 37.8 77 18 112/70 93 Room Air General Appearance: WD/WN, no apparent distress Head: normocephalic, atraumatic Eyes: normal inspection, sclerae normal Respiratory/Chest: normal breath sounds, no respiratory distress Cardiovascular: regular rate, rhythm, no edema Abdomen/GI: non tender, soft Extremities/Musculoskelatal: no calf tenderness, no pedal edema Neurologic/Psych: alert, normal mood/affect, oriented x 3 Skin: normal color, warm/dry Diagnostics Laboratory Results Results Past 24 Hours Test 11/24/17 15:25 11/24/17 15:32 11/24/17 16:19 11/24/17 17:31 Range/Units White Blood Count 4.39 4.8-10.8 K/uL Red Blood Count 3.89 4.7-6.1 M/uL Hemoglobin 13.7 14.0-18.0 g/dL Hematocrit 39.6 42-52 % Mean Corpuscular Volume 101.8 80-100 fL Mean Corpuscular Hemoglobin 35.2 25-34 pg Mean Corpuscular Hemoglobin Concent 34.6 32-36 g/dl RDW Standard Deviation 53.4 36.4-46.3 fL RDW Coefficient of Variation 14.6 11.5-14.5 % Platelet Count 118 130-400 K/uL Mean Platelet Volume 11.2 7.4-10.4 fL Nucleated RBC Absolute Count (auto) 0.05 0-0 K/uL Nucleated Red Blood Cells % 1.1 % Prothrombin Time 17.7 9.0-12.0 SECONDS Prothromb Time International Ratio 1.7 0.9-1.1 Activated Partial Thromboplast Time 34.0 21.0-31.0 SECONDS Partial Thromboplastin Ratio 1.3 Sodium Level 136 136-145 mmol/L Potassium Level 3.6 3.5-5.1 mmol/L Chloride Level 104 98-107 mmol/L Carbon Dioxide Level 24 21-32 mmol/L Anion Gap 8.0 3-11 mmol/L Blood Urea Nitrogen 22 7-18 mg/dl Creatinine 1.37 0.60-1.40 mg/dl Est Creatinine Clear Calc Drug Dose 80.9 ml/min Estimated GFR () 70.7 Estimated GFR (Non- 61.0 BUN/Creatinine Ratio 16.3 10-20 Random Glucose 198 70-99 mg/dl Calcium Level 8.6 8.5-10.1 mg/dl Total Bilirubin 0.5 0.2-1 mg/dl Aspartate Amino Transf (AST/SGOT) 24 15-37 U/L Alanine Aminotransferase (ALT/SGPT) 95 12-78 U/L Alkaline Phosphatase 80 45-117 U/L Total Creatine Kinase 35 39-308 U/L Creatine Kinase MB 2.2 0.5-3.6 ng/ml Creatine Kinase MB Ratio 6.3 0-3.0 Total Protein 6.2 6.4-8.2 gm/dl Albumin 3.0 3.4-5.0 gm/dl Globulin 3.2 2.5-4.0 gm/dl Albumin/Globulin Ratio 0.9 0.9-2 Bedside Troponin I 0.050 0.060 0-0.045 ng/ml Influenza Type A Antigen Neg for Influ A NEG Influenza Type B Antigen Neg for Influ B NEG Diagnostic Radiology CTA: 1. No acute aortic pathology or evidence of pulmonary thromboembolic disease. 2. Cardiomegaly with interstitial pulmonary edema, trace pericardial effusion with moderate bilateral pleural effusions. 3. Subsegmental right greater than left groundglass and consolidative opacities of the lung bases suggest areas of atelectasis. 4. Heterogeneous appearance of the bone marrow with multiple ill-defined subcentimeter lucent foci seen most prominently within the vertebral bodies again suspicious for marrow replacing process. Differential considerations would include lymphoma, metastatic disease or multiple myeloma. 5. Coronary arterial disease. Impression Assessment and Plan 47 y/o M who was admitted on 11/24 with SOB. SOB: CHF vs medication reaction Pt noted to have pleural effusions that are stable to those noted on d/c Complaint with lasix dosing No LE swelling Both celcade and pomelidomide have dyspnea as possible side effects ECHO on 09/13/17 noted, EF >70% and severe LVH, will not repeat at this time Hem/onc, cardiology c/s pending Elevated trop: possible demand ischemia Trop was mildly elevated on last admission around the same level Serials pending Multiple myeloma: as per oncology Afib/HTN: continue home meds Other: Full code Coumadin for DVT proph Reg diet Resuscitation Status VTE Prophylaxis Will order VTE Prophylaxis: Yes
[2017-11-24 19:30] VITALS: BP 136/54; PULSE 71; TEMP 37; O2SAT 96; Ht 175.3 cm; Wt 103.7 kg
[2017-11-24] MEDS ORDERED: ALBUTEROL HFA 8 GM INHALER INH PRN (19:30)
[2017-11-24 20:30] VITALS: BP 136/54; PULSE 71; TEMP 37; O2SAT 96
[2017-11-24] MEDS ORDERED: IV FLUIDS COMPLETED PRN (20:30)
[2017-11-24] MEDS ORDERED: HEPARIN SOD 5000 UNIT/0.5 ML CARP SQ SCH (21:00)
[2017-11-24 21:02] VITALS: BP 140/81; PULSE 73; TEMP 37; O2SAT 94
[2017-11-24] MEDS: METOPROLOL TARTRATE 25 MG TAB PO SCH (21:50)
[2017-11-25] VITALS (9 sets, daily range): BP systolic 110–124; BP diastolic 65–74; PULSE 64–67; TEMP 36.5–37.3; O2SAT 96–97
[2017-11-25 07:31] LABS: HEMOGLOBIN A1C 7.2 % (4.5-5.6)
[2017-11-25] MEDS: ESCITALOPRAM OXALATE 10 MG TAB PO SCH (08:23)
[2017-11-25] MEDS: METOPROLOL TARTRATE 25 MG TAB PO SCH ×2 (08:23→20:39)
[2017-11-25] MEDS ORDERED: FUROSEMIDE 20 MG TAB PO SCH (09:00)
[2017-11-25 09:46] LABS: HEMATOCRIT 41.1 % (42-52); MEAN CELL VOLUME 102.5 fL (80-100); MEAN CORPUSCULAR HEMOGLOBIN 34.9 pg (25-34); MEAN CORPUSCULAR HGB CONC 34.1 g/dl (32-36); MEAN PLATELET VOLUME 10.1 fL (7.4-10.4); NUCLEATED RED BLOOD CELL ABS 0.04 K/uL (0-0); PLATELET COUNT 122 K/uL (130-400); RED CELL DISTRIBUTION WIDTH CV 14.7 % (11.5-14.5); RED CELL DISTRIBUTION WIDTH SD 54.1 fL (36.4-46.3); WHITE BLOOD COUNT 4.17 K/uL (4.8-10.8)
[2017-11-25 09:55] LABS: INR 1.4 (0.9-1.1)
[2017-11-25 10:27] LABS: CALCIUM 8.8 mg/dl (8.5-10.1); CREATININE 1.41 mg/dl (0.60-1.40); POTASSIUM 3.9 mmol/L (3.5-5.1)
[2017-11-25] MEDS ORDERED: FUROSEMIDE INJ 20 MG in SYRINGE 0 ML IV ONE (14:00)
[2017-11-25] MEDS ORDERED: NURSING VERBAL MED ORDER ONE (14:15)
[2017-11-25] MEDS ORDERED: WARFARIN SOD 2.5 MG TAB PO SCH (16:00)
--- NOTE | 2017-11-25 16:06 | Cardiology Consultation ---
Cardiology Consultation Date of Consultation: Nov 25, 2017. Requesting Physician: Kareem Reason for Consultation: Dyspnea Pt evaluation today including: conversation w/ patient, conversation w/ family , physical exam, chart review, lab review, review of studies, review of inpatient medication list, conversation w/ attending History of Present Illness Patient is a 47-year-old gentleman well known to me from the inpatient and outpatient setting who suffers from atrial fibrillation and diastolic heart failure. He is recently admitted less than a week ago for symptoms of dyspnea. There was some confusion regarding his diuretic dose leading up to his admission but he was diuresed and sent home. Patient states that he felt quite well for several days but slowly he began to have more dyspnea. Initially this was significant exertion but eventually progressed to dyspnea at rest for which she presented to the emergency room yesterday. Patient underwent intravenous diuretic administration and currently feels better. He has not ambulated much but he has no symptoms at rest currently. He has not been describing dizziness or lightheadedness. He is aware of palpitations on occasion but these appear to be fairly limited in nature. He has not had any extended episodes of palpitations. He has not been reporting significant chest pain but does have some mild chest pressure or tightness with significant dyspnea. He does weigh himself at home on occasion feels he has gained approximately 5 pound since his last admission. Past Medical/Surgical History Multiple myeloma, recurrent Atrial fibrillation Left ventricular hypertrophy and associated diastolic heart failure Arthritis Hypertension Past surgical history: Prostate surgery Family History Not known due to adoption Noncontributory Social History Smoking Status: Never Smoker History of Alcohol Use: No Smokeless tobacco user Review of Systems Respiratory: + see HPI, + cough, + sputum, + shortness of breath, + dyspnea on exertion Cardiac: + orthopnea Per HPI All Other Systems: Reviewed and Negative Allergies Coded Allergies: No Known Allergies (Unverified , 11/24/17) Medications Current Inpatient Medications Medications (Trade) Dose Ordered Sig/Garcia Route Start Time Stop Time Status Last Admin Dose Admin Ioversol (Optiray 320) 100 ml UD PRN IV 11/24/17 16:15 11/28/17 16:14 Acetaminophen (Tylenol Tab) 650 mg Q4H PRN PO 11/24/17 18:45 12/24/17 18:44 Magnesium Hydroxide (Milk Of Magnesia Susp) 30 ml Q12H PRN PO 11/24/17 18:45 12/24/17 18:44 Ondansetron HCl (Zofran Inj) 4 mg Q6H PRN IV 11/24/17 18:45 12/24/17 18:44 Escitalopram Oxalate (Lexapro Tab) 10 mg DAILY PO 11/25/17 09:00 12/25/17 08:59 11/25/17 08:23 10 MG Furosemide (Lasix Tab) 20 mg DAILY PO 11/25/17 09:00 12/25/17 08:59 11/25/17 08:24 20 MG Metoprolol Tartrate (Lopressor Tab) 12.5 mg BID PO 11/24/17 21:00 12/24/17 20:59 11/25/17 08:23 12.5 MG Pantoprazole Sodium (Protonix Tab) 40 mg DAILY PRN PO 11/24/17 18:45 12/24/17 18:44 Warfarin Sodium (Coumadin Tab) 2.5 mg DAILY@1600 PO 11/25/17 16:00 12/25/17 15:59 Albuterol (Ventolin Hfa Inhaler) 1-4 PUFFS Q4H PRN INH 11/24/17 19:30 12/24/17 19:29 Miscellaneous Information (Order Awaiting Action) 1 ea QS N/A 11/25/17 00:00 12/25/17 00:00 Miscellaneous Information (Order Awaiting Action) 1 ea QS N/A 11/25/17 00:00 12/25/17 00:00 Miscellaneous (Iv Fluids Completed) 1 ea PRN PRN N/A 11/24/17 20:30 11/24/18 20:29 Physical Exam Vital Signs Past 12 Hours Date Time Temp Pulse Resp B/P (MAP) Pulse Ox O2 Delivery O2 Flow Rate FiO2 11/25/17 12:01 Room Air 11/25/17 11:46 37.3 67 20 124/74 (91) 96 Room Air 11/25/17 08:35 Room Air 11/25/17 07:21 36.6 19 111/67 (82) 97 Room Air 11/25/17 05:32 36.8 67 20 114/69 (84) 96 Room Air 11/25/17 03:55 Room Air The patient is alert and oriented. Mood and affect appeared normal. He answered all questions appropriately. HEENT: Pupils are equal and reactive to light and accommodation. Extraocular movements are intact. The sclerae are anicteric. Neuro: Cranial nerves intact Neck: Patient's neck is supple. He has palpable carotid pulses bilaterally without bruits on auscultation. There is no evidence of jugular venous distention. The thyroid is not enlarged. Lungs: Clear to auscultation bilaterally. He has good air movement without use of accessory muscles. No rales wheezes or rhonchi. Cardiac: Heart demonstrates a regular rate and rhythm. Normal S1 and S2. No murmurs on examination. Pulses: The patient has palpable radial pulses bilaterally that are equal in intensity Extremities: There was no evidence of hypoperfusion. There is no cyanosis or clubbing. There is no edema. Skin: I did not appreciate any rashes on examination today. Data Laboratory Results: Last 24 Hours Test 11/24/17 15:25 11/24/17 15:32 11/24/17 16:19 11/24/17 17:31 White Blood Count 4.39 K/uL Red Blood Count 3.89 M/uL Hemoglobin 13.7 g/dL Hematocrit 39.6 % Mean Corpuscular Volume 101.8 fL Mean Corpuscular Hemoglobin 35.2 pg Mean Corpuscular Hemoglobin Concent 34.6 g/dl RDW Standard Deviation 53.4 fL RDW Coefficient of Variation 14.6 % Platelet Count 118 K/uL Mean Platelet Volume 11.2 fL Nucleated RBC Absolute Count (auto) 0.05 K/uL Nucleated Red Blood Cells % 1.1 % Prothrombin Time 17.7 SECONDS Prothromb Time International Ratio 1.7 Activated Partial Thromboplast Time 34.0 SECONDS Partial Thromboplastin Ratio 1.3 Sodium Level 136 mmol/L Potassium Level 3.6 mmol/L Chloride Level 104 mmol/L Carbon Dioxide Level 24 mmol/L Anion Gap 8.0 mmol/L Blood Urea Nitrogen 22 mg/dl Creatinine 1.37 mg/dl Est Creatinine Clear Calc Drug Dose 80.9 ml/min Estimated GFR () 70.7 Estimated GFR (Non- 61.0 BUN/Creatinine Ratio 16.3 Random Glucose 198 mg/dl Estimated Average Glucose 160 mg/dl Hemoglobin A1c 7.2 % Calcium Level 8.6 mg/dl Total Bilirubin 0.5 mg/dl Aspartate Amino Transf (AST/SGOT) 24 U/L Alanine Aminotransferase (ALT/SGPT) 95 U/L Alkaline Phosphatase 80 U/L Total Creatine Kinase 35 U/L Creatine Kinase MB 2.2 ng/ml Creatine Kinase MB Ratio 6.3 Total Protein 6.2 gm/dl Albumin 3.0 gm/dl Globulin 3.2 gm/dl Albumin/Globulin Ratio 0.9 Bedside Troponin I 0.050 ng/ml 0.060 ng/ml Influenza Type A Antigen Neg for Influ A Influenza Type B Antigen Neg for Influ B Test 11/25/17 00:32 11/25/17 06:29 11/25/17 09:31 Troponin I 0.055 ng/ml 0.063 ng/ml White Blood Count 4.17 K/uL Red Blood Count 4.01 M/uL Hemoglobin 14.0 g/dL Hematocrit 41.1 % Mean Corpuscular Volume 102.5 fL Mean Corpuscular Hemoglobin 34.9 pg Mean Corpuscular Hemoglobin Concent 34.1 g/dl RDW Standard Deviation 54.1 fL RDW Coefficient of Variation 14.7 % Platelet Count 122 K/uL Mean Platelet Volume 10.1 fL Nucleated RBC Absolute Count (auto) 0.04 K/uL Nucleated Red Blood Cells % 0.8 % Prothrombin Time 14.6 SECONDS Prothromb Time International Ratio 1.4 Sodium Level 137 mmol/L Potassium Level 3.9 mmol/L Chloride Level 102 mmol/L Carbon Dioxide Level 28 mmol/L Anion Gap 7.0 mmol/L Blood Urea Nitrogen 16 mg/dl Creatinine 1.41 mg/dl Est Creatinine Clear Calc Drug Dose 77.3 ml/min Estimated GFR () 68.3 Estimated GFR (Non- 58.9 BUN/Creatinine Ratio 11.6 Random Glucose 193 mg/dl Calcium Level 8.8 mg/dl Magnesium Level 2.2 mg/dl Imaging: Chest x-ray suggesting an element of pulmonary vascular congestion and bilateral pleural effusions. Chest CT demonstrated arrive abnormalities including bony lesions and pleural effusions EKG: Normal sinus rhythm with evidence of LVH Telemetry reviewed: Normal sinus rhythm Assessment & Plan 1. Acute decompensated diastolic heart failure: Patient has had recurrent dyspnea. He seems to respond well to diuresis. This would lead me to believe that he does have an element of progressive diastolic dysfunction. In the past recurrence has been attributed to poor compliance with daily diuretics. More recently he claims to be compliant with his diuretic and perhaps we need to adjust his dose. His renal function appears to be stable. In the setting of severe LVH and diastolic dysfunction with speak cautious regarding over diuresis. However given his frequent admissions I think an increase in his diuretic dose or perhaps switching to an alternate agent such as a daily dose of Bumex would be reasonable. I think 1 milligram of Bumex daily may prevent recurrent admissions. He seems to have responded well to diuretics and likely could be discharged tomorrow. I would ask him to follow-up in my clinic within a week or 2 with an electrolyte panel prior in order to gauge the efficacy and potential side effects of a new diuretic regimen. 2. Left ventricular hypertrophy: There is some concern that this is related to his multiple myeloma and actually represents amyloid heart. Patient is scheduled for an MRI at [facility] in early January. 3. Atrial fibrillation: No documented recurrence. Patient apparently did not tolerate amiodarone it was not felt to be a good candidate for catheter based therapy. He is on low-dose metoprolol in the hopes of providing some rate control should he have additional episodes of atrial fibrillation. However given his cardiomyopathy he likely will have recurrence and if his ventricular rates are high we may need to consider device based therapy for tachy-jasper syndrome. He will continue on warfarin indefinitely 4. Dyspnea: Very possible that an element of dyspnea is related to his malignancy or the medical therapy for his malignancy. He has pleural effusions which could be related to heart failure or possibly his malignancy. He also received steroids periodically which could result in some volume retention. Hopefully with a slightly higher dose of diuretic we can avoid recurrent admissions 5. Elevated troponin: This appears to be fairly chronic. His elevations appear to be in the same range as prior. He has not been experiencing symptoms that I would consider consistent with angina. He did have a perfusion study during his initial admission which was low risk. This may simply represent chronic damage from a likely infiltrative cardiac process..
--- NOTE | 2017-11-25 17:08 | Oncology Consultation ---
Oncology/Heme Consultation Date of Consultation: Nov 25, 2017. Attending Physician: Ry Serna MD Reason for Consultation: Multiple myeloma LVH Congestive heart failure History of Present Illness Mr. Ochoa is a 47 year old man with multiply relapsed multiple myeloma. He is currently being treated with pomalidomide and bortezomib. His course has recently been complicated by LVH and heart failure with recurring admissions for volume overload. He presented yesterday with similar symptoms of shortness of breath and dyspnea with minimal exertion. He was given IV diuretics overnight and is feeling much better today. He is in his off-week for the Pomalyst. He tells me he drinks water frequently throughout the day, based on previous instructions to push fluids to protect his kidneys given the myeloma. He also may have had a lapse in his home diuretic regimen. He denies any chest pain today. He also has no pain. Past Medical/Surgical History Medical Problems: (1) Bilateral pleural effusion Status: Acute (2) Congestive heart failure Status: Acute (3) Elevated troponin Status: Acute (4) Elevated troponin Status: Acute (5) Hyperglycemia Status: Acute (6) Precordial chest pain Status: Acute (7) Tachy-jasper syndrome Status: Acute (8) Thrombocytopenia Status: Acute Family History Not known due to adoption Social History Smoking Status: Never Smoker Alcohol Use: none Drug Use: none Marital Status: Occupation Status: employed Allergies Coded Allergies: No Known Allergies (Unverified , 11/24/17) Home Medications Scheduled Albuterol Sulfate (Proair Respiclick), 1-4 PUFFS INH UD Bortezomib (Velcade), 1 DOSE INJ WK Dexamethasone (Decadron), 20 MG PO WK Escitalopram (Lexapro), 10 MG PO DAILY Furosemide (Lasix), 20 MG PO DAILY Metoprolol Tartrate (Lopressor) (Lopressor), 12.5 MG PO BID Pomalidomide (Pomalyst), 4 MG PO DAILY Warfarin Sod (Jantoven), 2.5 MG PO DAILY Scheduled PRN Pantoprazole (Pantoprazole Sodium), 40 MG PO DAILY PRN for Indigestion Current Inpatient Medications Current Inpatient Medications Medications (Trade) Dose Ordered Sig/Garcia Route Start Time Stop Time Status Last Admin Dose Admin Ioversol (Optiray 320) 100 ml UD PRN IV 11/24/17 16:15 11/28/17 16:14 Acetaminophen (Tylenol Tab) 650 mg Q4H PRN PO 11/24/17 18:45 12/24/17 18:44 Magnesium Hydroxide (Milk Of Magnesia Susp) 30 ml Q12H PRN PO 11/24/17 18:45 12/24/17 18:44 Ondansetron HCl (Zofran Inj) 4 mg Q6H PRN IV 11/24/17 18:45 12/24/17 18:44 Escitalopram Oxalate (Lexapro Tab) 10 mg DAILY PO 11/25/17 09:00 12/25/17 08:59 11/25/17 08:23 10 MG Furosemide (Lasix Tab) 20 mg DAILY PO 11/25/17 09:00 12/25/17 08:59 11/25/17 08:24 20 MG Metoprolol Tartrate (Lopressor Tab) 12.5 mg BID PO 11/24/17 21:00 12/24/17 20:59 11/25/17 08:23 12.5 MG Pantoprazole Sodium (Protonix Tab) 40 mg DAILY PRN PO 11/24/17 18:45 12/24/17 18:44 Warfarin Sodium (Coumadin Tab) 2.5 mg DAILY@1600 PO 11/25/17 16:00 12/25/17 15:59 11/25/17 15:49 2.5 MG Albuterol (Ventolin Hfa Inhaler) 1-4 PUFFS Q4H PRN INH 11/24/17 19:30 12/24/17 19:29 Miscellaneous Information (Order Awaiting Action) 1 ea QS N/A 11/25/17 00:00 12/25/17 00:00 Miscellaneous Information (Order Awaiting Action) 1 ea QS N/A 11/25/17 00:00 12/25/17 00:00 Miscellaneous (Iv Fluids Completed) 1 ea PRN PRN N/A 11/24/17 20:30 11/24/18 20:29 Review of Systems Constitutional: + fatigue, No fever Respiratory: + shortness of breath, + dyspnea on exertion, No cough Cardiovascular: No chest pain Abdomen: No nausea, No vomiting Musculoskeletal: No joint pain, No muscle pain Hematologic / Lymphatic: No abnormal bleeding/bruising, No night sweats Physical Exam Date Time Temp Pulse Resp B/P (MAP) Pulse Ox O2 Delivery O2 Flow Rate FiO2 11/25/17 16:00 97 Room Air 11/25/17 15:43 36.5 66 20 116/65 (82) 97 Room Air 11/25/17 12:01 Room Air 11/25/17 11:46 37.3 67 20 124/74 (91) 96 Room Air 11/25/17 08:35 Room Air 11/25/17 07:21 36.6 19 111/67 (82) 97 Room Air 11/25/17 05:32 36.8 67 20 114/69 (84) 96 Room Air 11/25/17 03:55 Room Air 11/25/17 00:01 36.7 65 19 114/71 (85) 97 Room Air 11/25/17 00:00 Room Air 11/24/17 21:02 37.0 73 18 140/81 (100) 94 Room Air 11/24/17 20:30 37.0 71 16 96 11/24/17 19:30 37.0 71 16 136/54 96 Room Air 11/24/17 19:20 75 18 104/54 95 11/24/17 18:30 75 18 125/61 98 Room Air General Appearance: WD/WN, no apparent distress ENT: pharynx normal (moist mucous membranes) Respiratory/Chest: lungs clear, + decreased breath sounds (at bases) Cardiovascular: regular rate, rhythm Abdomen/GI: non tender, soft Neurologic/Psych: alert, oriented x 3 Skin: no rash Laboratory Results Last 24 Hours Test 11/24/17 17:31 11/25/17 00:32 11/25/17 06:29 11/25/17 09:31 Bedside Troponin I 0.060 ng/ml Troponin I 0.055 ng/ml 0.063 ng/ml White Blood Count 4.17 K/uL Red Blood Count 4.01 M/uL Hemoglobin 14.0 g/dL Hematocrit 41.1 % Mean Corpuscular Volume 102.5 fL Mean Corpuscular Hemoglobin 34.9 pg Mean Corpuscular Hemoglobin Concent 34.1 g/dl RDW Standard Deviation 54.1 fL RDW Coefficient of Variation 14.7 % Platelet Count 122 K/uL Mean Platelet Volume 10.1 fL Nucleated RBC Absolute Count (auto) 0.04 K/uL Nucleated Red Blood Cells % 0.8 % Prothrombin Time 14.6 SECONDS Prothromb Time International Ratio 1.4 Sodium Level 137 mmol/L Potassium Level 3.9 mmol/L Chloride Level 102 mmol/L Carbon Dioxide Level 28 mmol/L Anion Gap 7.0 mmol/L Blood Urea Nitrogen 16 mg/dl Creatinine 1.41 mg/dl Est Creatinine Clear Calc Drug Dose 77.3 ml/min Estimated GFR () 68.3 Estimated GFR (Non- 58.9 BUN/Creatinine Ratio 11.6 Random Glucose 193 mg/dl Calcium Level 8.8 mg/dl Magnesium Level 2.2 mg/dl Assessment & Plan Mr. Ochoa is admitted with exacerbation of his heart failure. Some of the issue appears to be related to lapses in his oral diuretic regimen and to possible overhydration at home. I suggested he drink only when thirsty, rather than trying to drink a fixed amount or to "push" fluids. With regard to the cause of his cardiac issues, they remain unclear. 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 However, it is unusual for patients with multiple myeloma to develop amyloidosis. He is undergoing a cardiac workup and is apparently scheduled [place] cardiac [place] [facility] [place]. He will continue to pursue that investigation. Pomalyst can also cause pedal edema and, in an unspecified percentage of patients, other cardiac issues. There is some question about how much he was benefitting from the pomalidomide, as his numbers were worsening until Velcade was added. As a result, he can discuss with Dr. Estrada the need to continue it. This conversation can wait until he is an outpatient.
--- NOTE | 2017-11-26 00:21 | Progress Note ---
Subjective Date of Service: Nov 25, 2017. Subjective Pt evaluation today including: conversation w/ patient, physical exam, chart review, lab review, conversation w/ computing consultant (heme/onc, cardiology), review of inpatient medication list Pain: none PO Intake: normal Voiding: no voiding problems tele normal overnight feels much better no orthopnea no dyspnea no cough Problem List Medical Problems: (1) Bilateral pleural effusion Status: Acute (2) Congestive heart failure Status: Acute (3) Elevated troponin Status: Acute (4) Elevated troponin Status: Acute (5) Hyperglycemia Status: Acute (6) Precordial chest pain Status: Acute (7) Tachy-jasper syndrome Status: Acute (8) Thrombocytopenia Status: Acute Review of Systems Respiratory: No cough, No dyspnea on exertion Cardiac: No chest pain Abdomen: No pain Objective Vital Signs Date Time Temp Pulse Resp B/P (MAP) Pulse Ox O2 Delivery O2 Flow Rate FiO2 11/25/17 20:00 96 Room Air 11/25/17 19:30 36.9 65 20 110/67 (81) 96 CPAP 11/25/17 16:00 97 Room Air 11/25/17 15:43 36.5 66 20 116/65 (82) 97 Room Air 11/25/17 12:01 Room Air 11/25/17 11:46 37.3 67 20 124/74 (91) 96 Room Air 11/25/17 08:35 Room Air 11/25/17 07:21 36.6 19 111/67 (82) 97 Room Air 11/25/17 05:32 36.8 67 20 114/69 (84) 96 Room Air 11/25/17 03:55 Room Air 11/25/17 00:01 36.7 65 19 114/71 (85) 97 Room Air 11/25/17 00:00 Room Air Physical Exam General Appearance: no apparent distress ENT: pharynx normal Neck: no JVD Respiratory/Chest: lungs clear, no respiratory distress, no accessory muscle use Cardiovascular: regular rate, rhythm, no gallop, no murmur Abdomen: normal bowel sounds, non tender, soft, no organomegaly Extremities: + pedal edema (trace b/l ) Neurologic/Psychiatric: alert, oriented x 3 Laboratory Results Last 24 Hours Test 11/25/17 00:32 11/25/17 06:29 11/25/17 09:31 Troponin I 0.055 ng/ml 0.063 ng/ml White Blood Count 4.17 K/uL Red Blood Count 4.01 M/uL Hemoglobin 14.0 g/dL Hematocrit 41.1 % Mean Corpuscular Volume 102.5 fL Mean Corpuscular Hemoglobin 34.9 pg Mean Corpuscular Hemoglobin Concent 34.1 g/dl RDW Standard Deviation 54.1 fL RDW Coefficient of Variation 14.7 % Platelet Count 122 K/uL Mean Platelet Volume 10.1 fL Nucleated RBC Absolute Count (auto) 0.04 K/uL Nucleated Red Blood Cells % 0.8 % Prothrombin Time 14.6 SECONDS Prothromb Time International Ratio 1.4 Sodium Level 137 mmol/L Potassium Level 3.9 mmol/L Chloride Level 102 mmol/L Carbon Dioxide Level 28 mmol/L Anion Gap 7.0 mmol/L Blood Urea Nitrogen 16 mg/dl Creatinine 1.41 mg/dl Est Creatinine Clear Calc Drug Dose 77.3 ml/min Estimated GFR () 68.3 Estimated GFR (Non- 58.9 BUN/Creatinine Ratio 11.6 Random Glucose 193 mg/dl Calcium Level 8.8 mg/dl Magnesium Level 2.2 mg/dl Assessment and Plan 47yo male - 1. acute/chronic diastolic CHF - acute component resolving; suspect we are near euvolemia. BUN & Cr are stable; reasonable to give 1 final dose of low dose lasix. Repeat BMP am. Appreciate cardiology consult - they have recommended 1mg of bumex daily after discharge. Cont BB. Excess fluid consumption and lack of diuretic for 1-2 weeks may have led to his acute decompensation. 2. PAF - in NSR at this time. Cont warfarin; daily INR. Cont BB. 3. multiple myeloma, s/p BMT in the past, now with recurrence - appreciate heme /onc consultation. 4. ?amyloidosis - he is going to have a cardiac MRI at [place] soon to r/o infiltrative disease of the heart. 5. positive troponin - appears chronic; no evidence of ACS. 6. pancytopenia - due to multiple myeloma. Cell lines, although mildly low, are stable. anticipate d/c tomorrow am Discharge planning: home
[2017-11-26 04:53] VITALS: BP 122/71; PULSE 62; TEMP 36.4; O2SAT 96
[2017-11-26 06:13] LABS: INR 1.2 (0.9-1.1)
[2017-11-26 06:24] LABS: CALCIUM 8.5 mg/dl (8.5-10.1); CREATININE 1.54 mg/dl (0.60-1.40); POTASSIUM 4.2 mmol/L (3.5-5.1)
[2017-11-26] MEDS: ESCITALOPRAM OXALATE 10 MG TAB PO SCH (08:02)
[2017-11-26] MEDS: METOPROLOL TARTRATE 25 MG TAB PO SCH (08:03)
[2017-11-26 08:05] VITALS: BP 109/66; PULSE 65; TEMP 36.7; O2SAT 95
[2017-11-26] MEDS ORDERED: VNTHFA/IN INH (10:34)
[2017-11-26] MEDS ORDERED: BUME1TAB PO (10:34)
[2017-11-26] MEDS ORDERED: POTA10TA PO (10:34)
[2017-11-26 10:40] VITALS: BP 109/66; PULSE 65; TEMP 36.7; O2SAT 95
--- NOTE | 2017-11-26 10:41 | Discharge Instructions ---
Discharge Instructions Date of Service Nov 26, 2017. Admission Reason for Admission: difficulty breathing Discharge Discharge Diagnosis / Problem: shortness of breath due to congestive heart failure - improved Discharge Goals Goal(s): Learn about illness, Diagnostic testing, Therapeutic intervention Activity Recommendations Activity Limitations: resume your previous activity (as tolerated) . Instructions / Follow-Up Instructions / Follow-Up From Dr Serna - 1. Congestive Heart Failure Instructions: Call your Primary Care doctor or your field support specialist if any of the following symptoms or problems start or get worse: * Shortness of breath or difficulty breathing * Wake up at night short of breath * Chest pain * Cough * Swelling of your hands, feet, or legs * More fatigued or tired with your normal activity * Palpitations - sudden fast heart beats WEIGHT * Weigh yourself every morning after using the bathroom. * Use the same scale. * Wear the same amount of clothing. * Write your weight down on a chart. * Call your Primary Care doctor or your field support specialist if you gain more than 2 -3 pounds in 1-2 days. This is likely a sign you are taking on fluid weight from your heart conditions. MEDICATIONS * Use this discharge instruction sheet for medication instructions. * Take your medications at the time your doctor ordered. * Do not skip a dose of your medicines. * If you miss a dose of medicine, take it as soon as possible, but DO NOT DOUBLE A DOSE. * Read your medicine information when you get home. * Know all of the side effects of your medicine. If in doubt, ask your pharmacist * Call your Primary Care doctor's office if you have any side effects. * Be sure all of your doctors know what medicine and herbs you take (including cold, flu, and herbal medicine). Take the following with you to your follow-up doctor appointments: * Weight Chart * Medication List * List of questions Do not drink excessive alcohol, beer or wine. Your weight today is 228 pounds ("dry weight"). 2. Water pill / diuretic - please do the following - * STOP your lasix (furosemide) * START bumex (bumetanide) 1mg every morning - begin tomorrow morning, 11/27/17 * when you take your water pill please take the potassium supplement with it 3. Coumadin - please do the following - * take 5mg TODAY ONLY * then resume 2.5mg once daily starting TOMORROW, 11/27/17 * see Dr. Burnett in the coumadin clinic on Tuesday as scheduled 4. weight loss strategies - * talk to your family doctor about metformin * consider the mediterranean diet 5. follow-up appointments - * coumadin clinic this Tuesday * see Dr. Johnson in 1 week * keep any scheduled appointments with Dr. Christopher in the [facility] 6. Return to [facility] if - * you have recurrent shortness of breath * you develop chest pain * you have excessive weight gain, especially if you are feeling short of breath * fever over 100.5 degrees * any other concerns Current Hospital Diet Patient's current hospital diet: Regular Diet Discharge Diet Recommended Diet: Low Sodium Diet (2gm Na) Fluid Restriction: 1500 ml (6 cups) Procedures Procedures Performed: CAT scan of the lungs showing fluid build-up from congestive heart failure. Pending Studies Studies pending at discharge: no Laboratory Results Hemoglobin A1c Test 11/24/17 15:25 Range/Units Estimated Average Glucose 160 mg/dl Hemoglobin A1c 7.2 H 4.5-5.6 % Lipid Panel Test 09/14/17 06:29 Range/Units Triglycerides Level 199 H 0-150 mg/dl Cholesterol Level 160 0-200 mg/dl HDL Cholesterol 49 mg/dl Cholesterol/HDL Ratio 3.3 LDL Cholesterol, Calculated 71 mg/dl Medical Emergencies . Who to Call and When: Call 911 or go to the Emergency Room if: * If at any time you feel your situation is an emergency * You have tightness or pain in your chest that does not go away with rest or Nitroglycerin * You are very short of breath even with rest . Non-Emergent Contact Non-Emergency issues call your: Primary Care Provider, [place] Call Non-Emergent contact if: temperature is above 100.5, you have any medication questions . . "Provider Documentation" section prepared by Ry Serna. .
--- NOTE | 2017-11-29 11:28 | Discharge Summary ---
Discharge Summary Date of Service Nov 29, 2017. Discharge Summary Admission Date: Nov 24, 2017 at 18:40 Discharge Date: Nov 26, 2017 Discharge Disposition: Home Principal Diagnosis: acute/chronic diastolic CHF Problems/Secondary Diagnoses: multiple myeloma paroxysmal a. fib HTN possible amyloidosis pancytopenia 2nd to multiple myeloma minimal positive troponin - chronic Immunizations: Have You Had Influenza Vaccine: Unknown History of Tetanus Vaccine?: Yes History of Pneumococcal: No History of Hepatitis B Vaccine: No Procedures: CTA chest - IMPRESSION: 1. No acute aortic pathology or evidence of pulmonary thromboembolic disease. 2. Cardiomegaly with interstitial pulmonary edema, trace pericardial effusion with moderate bilateral pleural effusions. 3. Subsegmental right greater than left groundglass and consolidative opacities of the lung bases suggest areas of atelectasis. 4. Heterogeneous appearance of the bone marrow with multiple ill-defined subcentimeter lucent foci seen most prominently within the vertebral bodies again suspicious for marrow replacing process. Differential considerations would include lymphoma, metastatic disease or multiple myeloma. 5. Coronary arterial disease. Consultations: cardiology - Santiago Johnson MD heme/onc - Alex Christopher MD Medication Reconciliation Changed Medications: Albuterol Hfa (Ventolin Hfa) 200 Puffs/86497 Mcg Aers 2 PUFFS INH Q4H PRN for Cough, #1 INHALER 0 Refills (Changed from: Albuterol Sulfate (Proair Respiclick) 108 Mcg/Act Aer 1-4 Puffs INH UD 30 Days #1 INHALER) Bumetanide (Bumex) 1 Mg Tab 1 TAB PO QAM for 30 Days, #30 TAB 5 Refills (Changed from: Furosemide (Lasix) 20 Mg Tab 20 Mg PO DAILY 30 Days #30 TAB Ref 1) Continued Medications: Bortezomib (Velcade) 1 Mg/Ml Inj 1 DOSE INJ WK mondays Dexamethasone (Decadron) 4 Mg Tab 20 MG PO WK TAKES ON SATURDAYS Escitalopram (Lexapro) 10 Mg Tab 10 MG PO DAILY, TAB Metoprolol Tartrate (Lopressor) (Lopressor) 25 Mg Tab 12.5 MG PO BID for 90 Days, #90 TAB 1 Refill Pantoprazole (Pantoprazole Sodium) 40 Mg Tab 40 MG PO DAILY PRN for Indigestion Pomalidomide (Pomalyst) 4 Mg Cap 4 MG PO DAILY PT TAKES FOR 21DAYS THEN OFF FOR 7DAYS. PT DUE TO START OFF DAYS NEXT WEEK Warfarin Sod (Jantoven) 5 Mg Tab 2.5 MG PO DAILY, TAB Discharge Exam Physical Exam: General Appearance: no apparent distress ENT: pharynx normal Neck: no JVD Respiratory/Chest: lungs clear, no respiratory distress, no accessory muscle use, + decreased breath sounds (minimal - bases) Cardiovascular: regular rate, rhythm, no gallop, no murmur, normal peripheral pulses Abdomen / GI: normal bowel sounds, non tender, soft, no organomegaly Extremities: no pedal edema Neurologic/Psychiatric: alert, oriented x 3 Hospital Course HISTORY OF PRESENT ILLNESS: 47yo male with history of chronic diastolic CHF and multiple myeloma who presented with SOB. Pt had been admitted to [facility] in early October for SOB that was determined to be new onset CHF. He was d/c'd on lasix, which he took until his script ran out. He did not take lasix for about 2 weeks and then noted a return of SOB. He was admitted on 11/19 for CHF again and felt at his usual s/p lasix dosing and resumed daily dosing. Pt was d/c'd on 11/20 for SOB that was thought to be related to stopped lasix use. He was restarted on lasix and has not missed any doses. He states that he felt fine until yesterday he noted SOB with exertion and it was worse today. Given his recent hx, he thought he should come to the ED for further eval. He has never had LE swelling with any of these episodes. He did have mild chest tightness with his SOB today, but that resolved once he sat down and he has had no return of this. He has been eating and drinking without issue. Pt had his 3rd dose of valcade on Tuesday. notes that the breathing issues seem to have started since starting pomalidomide. Pt denies fever, abd pain, n/v/c/d, LE pain. HOSPITAL COURSE: The patient was given IV diuretics for his acute/chronic diastolic CHF. He never had an o2 requirement. Symptom-motta he felt better and he was felt to be euvolemic or even slightly dry as evidenced by a mild rise in creatinine prior to discharge. He was seen in consult by cardiology, Dr. Johnson, and he recommended 1mg of bumex daily at home in sudhakar of lasix. He will remain on beta teto. Excess fluid consumption and perhaps even his multiple myeloma agents may have contributed to his volume overloaded state. There has been a question of amyloidosis contributing to his cardiac dysfunction and thus he is going to have a cardiac MRI at [facility] in the near future. All other medical problems remained stable while hospitalized. Discharge INR was 1.2 and thus he was advised to take double dose of coumadin ( total dose of 5mg) on 11/27/17 with a follow-up INR in the anticoagulation clinic on 11/28/17. Total Time Spent: Greater than 30 minutes This includes examination of the patient, discharge planning, medication reconciliation, and communication with other providers. Discharge Instructions Please refer to the electronic Patient Visit Report (Discharge Instructions) for additional information. Follow-Up 1. see the [facility] on 11/28/[address] Johnson, cardiology, within 1 week 3. see the Cancer Center as scheduled in the next 2 weeks Additional Copies To Santiago Johnson MD; Benita Burnett M.D., PHD; Alex Christopher MD
== END 2017-11-26 12:27 | disposition home or self-care (01) ==
LOC: C.EDB 15:13 → C.EDINP 18:40 → ENRESERV 19:53 → C.MED 20:41
PROVIDERS: ADMIT Family Medicine; ATTEND Internal Medicine
DX: I11.0 Hypertensive heart disease with heart failure (principal); I50.33 Acute on chronic diastolic (congestive) heart failure; R79.89 Other specified abnormal findings of blood chemistry; I48.0 Paroxysmal atrial fibrillation; C90.02 Multiple myeloma in relapse; D61.818 Other pancytopenia; M19.90 Unspecified osteoarthritis, unspecified site; E85.9 Amyloidosis, unspecified; K21.9 Gastro-esophageal reflux disease without esophagitis; Z94.84 Stem cells transplant status

== ENCOUNTER → 2017-12-28 | Outpatient (CLI) | payer BC ==
[~2017-12-28] MED LIST changes: -ALBU18002 INH; -AMOX875T PO; +BUME1TAB PO; +DRON400T PO; -FURO20TA PO; +VNTHFA/IN INH; +WARF2.5T8 PO
--- NOTE | 2017-12-28 13:19 | DIAGNOSTIC IMAGING REPORT ---
CHEST 2 VIEWS ROUTINE HISTORY: 47 years-old Male SOB acute shortness of breath COMPARISON: Chest radiograph and CTA chest 11/24/2017 TECHNIQUE: PA and lateral views of the chest FINDINGS: Cardiac silhouette is again enlarged. Mild pulmonary vascular congestion without pneumothorax. Small bilateral pleural effusions with subsegmental bibasilar opacities. Bones of the chest appear grossly intact. IMPRESSION: 1. Cardiomegaly with mild pulmonary vascular congestion. 2. Small bilateral pleural effusions with subsegmental bibasilar opacities suggesting probable atelectasis. The above report was generated using voice recognition software. It may contain grammatical, syntax or spelling errors. Electronically signed by: Daniel Larry M.D. 12/28/2017 1:17 PM Dictated Date/Time: 12/28/2017 1:16 PM
== END | disposition home or self-care (01) ==
LOC: C.RAD 12:50
PROVIDERS: ATTEND Nurse Practitioner Family
DX: R06.02 Shortness of breath (principal); C90.00 Multiple myeloma not having achieved remission; I49.9 Cardiac arrhythmia, unspecified; I51.7 Cardiomegaly

== ENCOUNTER 2018-04-17 04:10 | Inpatient (IN) | payer BC ==
[~2018-04-17] VITALS: Ht 175.3 cm; Wt 103.4 kg
[2018-04-17] VITALS (9 sets, daily range): BP systolic 99–119; BP diastolic 61–80; PULSE 51–105; TEMP 36.8–39.2; O2SAT 97–98; BMI 33.5
[~2018-04-17 04:10] MED LIST changes: +ACYC400T PO; -DXM/4 PO; -POMA4CAP PO; +POTA20TA13 PO; +PRED20TA PO; -WARF2.5T8 PO
[2018-04-17] MEDS ORDERED: KETOROLAC TROMETHAMINE 30 MG/ML VIAL IV STA (04:29)
[2018-04-17] MEDS ORDERED: SODIUM CHLORIDE 0.9% 1000ML 1,000 ML IV ONE ×2 (04:30)
[2018-04-17] MEDS ORDERED: ACETAMINOPHEN IV 1,000 MG in EMPTY BAG 0 ML IV ONE (04:30)
[2018-04-17] MEDS ORDERED: ACETAMINOPHEN 1000 MG/100 ML IV IV ONE (04:35)
[2018-04-17 04:57] LABS: EOS % 0.4 %; EOS ABS # 0.04 K/uL (0-0.5); HEMATOCRIT 36.8 % (42-52); HEMOGLOBIN 13.1 g/dL (14.0-18.0); IG# 0.04 K/uL (0.00-0.02); LYMPH % 6.5 %; MEAN CELL VOLUME 93.6 fL (80-100); MEAN CORPUSCULAR HEMOGLOBIN 33.3 pg (25-34); MEAN CORPUSCULAR HGB CONC 35.6 g/dl (32-36); MEAN PLATELET VOLUME 11.3 fL (7.4-10.4); MONO % 5.9 %; MONO ABS # 0.63 K/uL (0.11-0.59); NEUT % 86.8 %; NEUT ABS # 9.29 K/uL (1.4-6.5); PLATELET COUNT 143 K/uL (130-400); RED CELL DISTRIBUTION WIDTH CV 12.5 % (11.5-14.5); RED CELL DISTRIBUTION WIDTH SD 42.9 fL (36.4-46.3)
[2018-04-17] MEDS ORDERED: VANCOMYCIN IV 1,000 MG in SODIUM CHLORIDE 0.9% 250ML 250 ML IV STA (05:00)
[2018-04-17] MEDS ORDERED: VANCOMYCIN CONSULT ACTIVE PRN ×2 (05:00→06:15)
[2018-04-17] MEDS ORDERED: PIPERACILLIN/TAZOBACTAM 4.5 GM/100ML D5W IV STA (05:00)
[2018-04-17] MEDS ORDERED: VANCOMYCIN 1GM ED/ASU OMNICELL ONE (05:09)
[2018-04-17 05:18] LABS: ALBUMIN 2.8 gm/dl (3.4-5.0); CALCIUM 8.2 mg/dl (8.5-10.1); CREATININE 1.65 mg/dl (0.60-1.40); POTASSIUM 3.1 mmol/L (3.5-5.1); TOTAL PROTEIN 6.2 gm/dl (6.4-8.2)
[2018-04-17 05:39] LABS: PTT PATIENT 47.6 SECONDS (21.0-31.0)
[2018-04-17] MEDS ORDERED: CMD/25 PO (05:58)
[2018-04-17] MEDS ORDERED: BMX1 PO (06:01)
[2018-04-17] MEDS ORDERED: VNTHFA/IN INH (06:02)
[2018-04-17] MEDS ORDERED: PRED20TA PO (06:03)
[2018-04-17] MEDS ORDERED: [UNRECOGNIZED DRUG - OTHER] IV (06:04)
[2018-04-17] MEDS ORDERED: MAGNESIUM SULFATE 1GM / D5W 100 ML IV STA (06:04)
[2018-04-17] MEDS ORDERED: POTASSIUM CHLORIDE 20 MEQ/15 ML UDC ONE (06:10)
[2018-04-17] MEDS ORDERED: MAGNESIUM SULFATE 1GM / D5W 1 GM BAG IV ONE (06:10)
[2018-04-17] MEDS ORDERED: PANTOprazole SOD 40 MG TAB PO PRN (06:15)
[2018-04-17] MEDS ORDERED: ALUMINUM/MAGNESIUM/SIMETH (MAALOX MAX) 30 ML UDC PO PRN (06:15)
[2018-04-17] MEDS ORDERED: ALBUTEROL HFA 8 GM INHALER INH PRN (06:15)
[2018-04-17] MEDS ORDERED: ONDANSETRON INJ 2 MG/ML 2 ML VIAL IV PRN (06:15)
[2018-04-17] MEDS ORDERED: PIPERACILL/TAZOBAC CONSULT ACTIVE PRN (06:15)
[2018-04-17] MEDS ORDERED: MAGNESIUM HYDROXIDE SUSP 30 ML UDC PO PRN (06:15)
[2018-04-17] MEDS ORDERED: POTASSIUM CHLORIDE PWD 20 MEQ PACK PO SCH (06:15)
[2018-04-17] MEDS ORDERED: ZOLPIDEM TARTRATE 5 MG TAB PO PRN (06:15)
[2018-04-17] MEDS ORDERED: HEPARIN SOD 5000 UNIT/0.5 ML CARP SQ SCH (06:15)
[2018-04-17 06:22] LABS: INFLUENZA B ANTIGEN Neg for Influ B (NEG)
[2018-04-17] MEDS ORDERED: POLYETHYLENE (MIRALAX) 17 GM PACK PO PRN (06:30)
--- NOTE | 2018-04-17 06:40 | History and Physical ---
History & Physical Date & Time of Service: Apr 17, 2018 at 05:55 Chief Complaint: Fever X 6 Days 99-103 Primary Care Physician: Jc Quan M.D. History of Present Illness Source: patient, hospital records, other 47 y/o M Hx multiple myeloma, amyloidosis, grade II diastolic dysfunction, paroxysmal AF, DEBBY, CKD II. Multiple admissions in 2018 for volume overload. Presents with intermittent fevers for 4 days. He was initially evaluated at [facility] for the fever and was sent home after blood cultures returned negative. He was not placed on antibiotics. He denies a productive cough, N/V, or dysuria. He does have chronic diarrhea A fever of 39.5 was confirmed on arrival to the ER. Initial labs are notable for a low K, low Mg and protein malnutrition. Renal function is at baseline. Past Medical/Surgical History 1) Multiple myeloma - stem cell transplant 2014 - currently treated with Velcade and Daratumumab. 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 at [facility] Family History Not known due to adoption Social History Smoking Status: Never Smoker Drug Use: none Marital Status: Housing status: lives with family Occupational Status: employed Immunizations History of Influenza Vaccine: Unknown History of Tetanus Vaccine?: Yes History of Pneumococcal: No History of Hepatitis B Vaccine: No Allergies Coded Allergies: No Known Allergies (Unverified , 04/17/18) Home Medications Scheduled Acyclovir (Acyclovir), 1 TAB PO BID Bortezomib (Velcade), 1 DOSE INJ WK Bumetanide (Bumex), 2 TAB PO QAM Dronedarone Hcl (Multaq), 400 MG PO BID Escitalopram (Lexapro), 10 MG PO DAILY Metoprolol Tartrate (Lopressor) (Lopressor), 12.5 MG PO BID Potassium Chloride Microencaps (Potassium Chloride Er), 10 MEQ PO BID Warfarin Sod (Jantoven), 2.5 MG PO DAILY Scheduled PRN Albuterol Hfa (Ventolin Hfa), 2 PUFFS INH Q4H PRN for Cough Pantoprazole (Pantoprazole Sodium), 40 MG PO DAILY PRN for Indigestion Prednisone (Prednisone), 20 MG PO Q3Wk PRN for after chemo infusion day 1 and Review of Systems Constitutional: + fever, + chills, + sweats Eyes: No worsening of vision ENT: No hearing loss, No unusual epistaxis, No nasal symptoms Respiratory: + dyspnea on exertion (chronic), No cough, No sputum, No wheezing Cardiovascular: No chest pain, No orthopnea, No PND Abdomen: + diarrhea (chronic), No pain, No nausea, No vomiting Musculoskeletal: No joint pain Genitourinary - Male: No hematuria, No dysuria Neurologic: No memory loss, No paralysis, No weakness Psychiatric: No depression symptoms Endocrine: No fatigue Hematologic / Lymphatic: No abnormal bleeding/bruising Integumentary: No rash Physical Exam Vital Signs Date Time Temp Pulse Resp B/P (MAP) Pulse Ox O2 Delivery O2 Flow Rate FiO2 04/17/18 05:49 98 20 95/58 97 Room Air 04/17/18 04:33 122 04/17/18 04:23 39.5 85 20 111/79 97 Room Air General Appearance: WD/WN, no apparent distress Head: normocephalic Eyes: normal inspection ENT: normal ENT inspection, pharynx normal Neck: supple, no JVD Respiratory/Chest: chest non-tender, lungs clear, normal breath sounds Cardiovascular: no edema, no gallop, + irregularly irregular Abdomen/GI: normal bowel sounds, non tender, soft Back: normal inspection, no CVA tenderness Extremities/Musculoskelatal: normal inspection, no calf tenderness, normal capillary refill 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, no motor/sensory deficits, alert, oriented x 3 Skin: normal color Diagnostics Laboratory Results Results Past 24 Hours Test 04/17/18 04:38 04/17/18 04:45 04/17/18 04:50 Range/Units White Blood Count 10.70 4.8-10.8 K/uL Red Blood Count 3.93 4.7-6.1 M/uL Hemoglobin 13.1 14.0-18.0 g/dL Hematocrit 36.8 42-52 % Mean Corpuscular Volume 93.6 80-100 fL Mean Corpuscular Hemoglobin 33.3 25-34 pg Mean Corpuscular Hemoglobin Concent 35.6 32-36 g/dl Platelet Count 143 130-400 K/uL Mean Platelet Volume 11.3 7.4-10.4 fL Neutrophils (%) (Auto) 86.8 % Lymphocytes (%) (Auto) 6.5 % Monocytes (%) (Auto) 5.9 % Eosinophils (%) (Auto) 0.4 % Basophils (%) (Auto) 0.0 % Neutrophils # (Auto) 9.29 1.4-6.5 K/uL Lymphocytes # (Auto) 0.70 1.2-3.4 K/uL Monocytes # (Auto) 0.63 0.11-0.59 K/uL Eosinophils # (Auto) 0.04 0-0.5 K/uL Basophils # (Auto) 0.00 0-0.2 K/uL RDW Standard Deviation 42.9 36.4-46.3 fL RDW Coefficient of Variation 12.5 11.5-14.5 % Immature Granulocyte % (Auto) 0.4 % Immature Granulocyte # (Auto) 0.04 0.00-0.02 K/uL Prothrombin Time 20.6 9.0-12.0 SECONDS Prothromb Time International Ratio 2.0 0.9-1.1 Activated Partial Thromboplast Time 47.6 21.0-31.0 SECONDS Partial Thromboplastin Ratio 1.8 Sodium Level 134 136-145 mmol/L Potassium Level 3.1 3.5-5.1 mmol/L Chloride Level 102 98-107 mmol/L Carbon Dioxide Level 23 21-32 mmol/L Anion Gap 9.0 3-11 mmol/L Blood Urea Nitrogen 16 7-18 mg/dl Creatinine 1.65 0.60-1.40 mg/dl Est Creatinine Clear Calc Drug Dose 64.7 ml/min Estimated GFR () 56.1 Estimated GFR (Non- 48.4 BUN/Creatinine Ratio 10.0 10-20 Random Glucose 125 70-99 mg/dl Calcium Level 8.2 8.5-10.1 mg/dl Magnesium Level 1.7 1.8-2.4 mg/dl Total Bilirubin 0.6 0.2-1 mg/dl Aspartate Amino Transf (AST/SGOT) 12 15-37 U/L Alanine Aminotransferase (ALT/SGPT) 23 12-78 U/L Alkaline Phosphatase 97 45-117 U/L Total Protein 6.2 6.4-8.2 gm/dl Albumin 2.8 3.4-5.0 gm/dl Globulin 3.4 2.5-4.0 gm/dl Albumin/Globulin Ratio 0.8 0.9-2 Bedside Lactic Acid Venous 1.58 0.90-1.70 mmol/L Microbiology Results 04/17/18 Blood Culture, Received Pending 04/17/18 Blood Culture, Received Pending Diagnostic Radiology CXR: no infiltrates are present Impression Assessment and Plan 47 y/o M Hx multiple myeloma, amyloidosis, grade II diastolic dysfunction, paroxysmal AF, DEBBY, CKD II. Multiple admissions in 2018 for volume overload. Presents with intermittent fevers for 4 days. He was initially evaluated at [facility] for the fever and was sent home after blood cultures returned negative. He was not placed on antibiotics. He denies a productive cough, N/V, or dysuria. He does have chronic diarrhea A fever of 39.5 was confirmed on arrival to the ER. Initial labs are notable for a low K, low Mg and protein malnutrition. Renal function is at baseline. 1) Fever - pancultured - UA is pending. ID consulted. Considering his high temp and immunocompromise due to chemo, Zosyn and Vanc were provided. 2) CHF - due to restrictive disease/amyloidosis and diastolic dysfunction - euvolemic on admission - continue daily Bumex, Metoprolol. 3) AF - rate is slightly elevated which may be due to temp - INR is therapeutic at 2.0. Cont Metoprolol and Coumadin. 4) CKD II - creatinine is at baseline 5) Anemia - Hb has decreased 2 points over 2 days - will trend later in day - no current evidence of an acute bleed 6) Multiple Myeloma and Amyloidosis - can f/u as outpt - it is noted that he takes daily Prednisone so that stress dosing should be considered if he exhibits any hypotension or evidence of sepsis. Full code - Coumadin prophylaxis Total time for this admit including review of labs, meds, imaging, records - discussion with pt and ER attending - 40 min Resuscitation Status VTE Prophylaxis Will order VTE Prophylaxis: Yes
--- NOTE | 2018-04-17 07:34 | DIAGNOSTIC IMAGING REPORT ---
CHEST 2 VIEWS ROUTINE HISTORY: Fever. On chemo COMPARISON: Chest 12/28/2017. FINDINGS: No pneumothorax. No pleural effusions. The heart remains mildly enlarged. Hazy appearance the right lung base is likely due to overlapping soft tissue. Otherwise, the right lung appears clear. There is a new left upper lobe/lingular airspace opacity. IMPRESSION: 1. A new left upper lobe/lingular airspace opacity. This likely represents a pneumonia. One month chest x-ray follow-up is recommended to ensure resolution. 2. Stable mild cardiomegaly. Electronically signed by: Aron Talavera M.D. 04/17/2018 7:32 AM Dictated Date/Time: 04/17/2018 7:31 AM
[2018-04-17] MEDS: VANCOMYCIN IV 1,500 MG in SODIUM CHLORIDE 0.9% 500ML 500 ML IV SCH ×2 (09:24→19:31)
[2018-04-17] MEDS: ESCITALOPRAM OXALATE 10 MG TAB PO SCH (09:29)
[2018-04-17] MEDS: BUMETANIDE 1 MG TAB PO SCH (09:29)
[2018-04-17] MEDS: METOPROLOL TARTRATE 25 MG TAB PO SCH ×2 (09:30→19:33)
[2018-04-17] MEDS: DRONEDARONE 400 MG TAB PO SCH ×2 (09:33→19:31)
[2018-04-17] MEDS: ACYCLOVIR 400 MG TAB PO SCH ×2 (09:34→19:32)
[2018-04-17] MEDS: POTASSIUM CHLORIDE 10 MEQ TABCR PO SCH ×2 (09:34→16:28)
[2018-04-17] MEDS: PIPERACILL/TAZOBAC IV 3.375 GM in DEXTROSE 5% 100ML 100 ML IV SCH ×2 (10:10→18:23)
--- NOTE | 2018-04-17 10:33 | Progress Note ---
Progress Note Date of Service Apr 17, 2018. Progress Note ID Consult Dictated #[id number] A/P: 1. KUSH CAP 2. Fever -Add azithro, if blood cultures negative, can stop IV abx -Will follow, thank you
--- NOTE | 2018-04-17 11:42 | INFECT. DISEASE CONSULTATION ---
DATE OF CONSULTATION: 04/17/2018 HISTORY OF PRESENT ILLNESS: This is a 48-year-old gentleman who was admitted to the hospital after he had worsening fever at home. He states that his fevers began 6 days ago and have continued. Per the H and P, he was initially evaluated at [facility] for the same earlier in his course and he was discharged to home on no antibiotics after his blood cultures had returned negative. He currently states he is feeling better. He does admit to some subjective chills, but no rigors at home with his fever. He does live with his and daughter and states his daughter recently was sick with an upper respiratory infection. He does admit to having some myalgias previously, but states those have resolved. He currently denies any chest pain, cough, shortness of breath, nausea, vomiting, diarrhea or abdominal pain. He did have a C. diff specimen sent here which was negative. He denies any urinary symptoms. He denies any rash or tick bites. He has had no travel recently. He did have a flu swab in the Emergency Room which was negative. He also had a Lyme screen which was negative. Blood cultures were ordered and are pending. He was started empirically on antibiotics. He did have a fever of 39.5 in the Emergency Room, but has subsequently been afebrile. His white blood cell count is within normal limits. He denies any headache or neck stiffness. REVIEW OF SYSTEMS: His remaining review of systems is reviewed and is unremarkable. PAST MEDICAL HISTORY: Multiple myeloma status post stem cell transplant in 2004. He is currently on chemotherapy. CHF, obstructive sleep apnea with CPAP, paroxysmal AFib on anticoagulation, hypertension, GERD, chronic kidney disease and amyloidosis for which he follows at [place]. PAST SURGICAL HISTORY: Unremarkable. FAMILY HISTORY: Noncontributory. SOCIAL HISTORY: Negative for tobacco use, alcohol use or drug use. Again, he denies any recent travel. He denies any insect bites. He did have a sick contact with a daughter recently who had upper respiratory infection. ALLERGIES: He has no known drug allergies. MEDICATIONS: Coumadin, Zosyn, potassium, vancomycin, acyclovir, Bumex, Multaq, Lexapro, Lopressor, MiraLax, Tylenol, Maalox, milk of magnesia, Ambien, Zofran, albuterol, Protonix. PHYSICAL EXAMINATION: VITAL SIGNS: He is currently afebrile, pulse 81, respiratory rate 20, blood pressure 99/64, oxygen saturation is 97% on room air. GENERAL: He is awake, alert and oriented x3. He is in no acute distress. HEENT: Mucous membranes are moist. Extraocular muscles are intact. HEART: Regular. LUNGS: Clear bilaterally. ABDOMEN: Soft, nontender, nondistended. There is no lower extremity edema. SKIN: Without rash. LABORATORY STUDIES: CBC today, white blood cell count 10.7, hemoglobin 13.4, platelets 143. Chemistry panel: Sodium 134, potassium 3.1, chloride 102, bicarb 23, BUN 16, creatinine 1.6. Lactic acid was normal. Glucose 125. LFTs are within normal limits. UA is pending. Lyme screen is negative. Flu swab was negative. C. diff was negative. Blood cultures are pending. Chest x-ray done in the Emergency Room shows a left upper lobe opacity, which is concerning for pneumonia; however, the patient is asymptomatic. ASSESSMENT AND PLAN: 1. Fever. 2. Left upper lobe opacity, certainly this could represent pneumonia and could be a source of fever; however, the patient is asymptomatic. He currently is on vancomycin and Zosyn. I will add azithromycin for atypical coverage as this is likely community-acquired pneumonia. He recently did have contact with his daughter who was sick with upper respiratory infection as well. Blood cultures are negative, likely antibiotics could be narrowed to a Z-Konstantin. We will follow along with you. Thank you for this consultation.
[2018-04-17] MEDS: ACETAMINOPHEN 325 MG TAB PO PRN (13:09)
[2018-04-17] MEDS ORDERED: NURSING VERBAL MED ORDER ONE (13:15)
[2018-04-17] MEDS ORDERED: AZITHROMYCIN 250 MG TAB PO ONE (13:45)
--- NOTE | 2018-04-17 14:29 | Pharmacy Progress Note ---
Pharmacy Abx Initial Consult Date of Service Apr 17, 2018. Pharmacy Dosing Scope Date of Consult: 04/17/18 Consultation requested by: Dr. Skaggs Pharmacy is consulted to initiate vancomycin and Zosyn IV dosing therapy, order appropriate labs and adjust drug dose/frequency. Subjective The patient is a 48 year old male admitted on Apr 17, 2018 at 06:10. Objective Height (Feet): 5 Height (Inches): 9.00 Weight (Kilograms): 102.900 Vital Signs (Past 12Hrs) Vital Signs Past 12 Hours Date Time Temp Pulse Resp B/P (MAP) Pulse Ox O2 Delivery O2 Flow Rate FiO2 04/17/18 14:05 39.1 04/17/18 13:07 37.4 04/17/18 12:28 37.1 51 20 111/80 (90) 98 Room Air 04/17/18 07:40 36.8 81 20 99/64 (76) 97 Room Air 04/17/18 07:30 36.8 81 20 99/66 97 Room Air 04/17/18 07:04 37.2 86 16 116/64 97 04/17/18 06:51 86 16 116/64 97 Room Air 04/17/18 05:49 37.2 98 20 95/58 97 Room Air 04/17/18 04:33 122 04/17/18 04:23 39.5 85 20 111/79 97 Room Air Lab Results (24Hrs) Laboratory Tests (24 Hours) Test 04/17/18 04:38 White Blood Count 10.70 K/uL (4.8-10.8) Red Blood Count 3.93 M/uL (4.7-6.1) L Hemoglobin 13.1 g/dL (14.0-18.0) L Hematocrit 36.8 % (42-52) L Mean Corpuscular Volume 93.6 fL (80-100) Mean Corpuscular Hemoglobin 33.3 pg (25-34) Mean Corpuscular Hemoglobin Concent 35.6 g/dl (32-36) Platelet Count 143 K/uL (130-400) Mean Platelet Volume 11.3 fL (7.4-10.4) H Neutrophils (%) (Auto) 86.8 % Lymphocytes (%) (Auto) 6.5 % Monocytes (%) (Auto) 5.9 % Eosinophils (%) (Auto) 0.4 % Basophils (%) (Auto) 0.0 % Neutrophils # (Auto) 9.29 K/uL (1.4-6.5) H Lymphocytes # (Auto) 0.70 K/uL (1.2-3.4) L Monocytes # (Auto) 0.63 K/uL (0.11-0.59) H Eosinophils # (Auto) 0.04 K/uL (0-0.5) Basophils # (Auto) 0.00 K/uL (0-0.2) Micro Results Date/Time Source Procedure Growth Status 04/17/18 04:38 Blood Blood Culture Pending Received 04/17/18 04:35 Blood Blood Culture Pending Received 04/17/18 06:25 Stool C.difficile Toxin B Gene (PCR) - Final No C. difficile toxin B gene detected Complete 04/17/18 06:25 Stool Shiga Toxin Test Pending Received 04/17/18 06:25 Stool Stool Culture Pending Received Risk Factors for Resistance * Immunocompromised (chemotherapy, MDS s/p stem cell transplant in 2004) Assessment & Plan Assessment 48 year old male with a PMH of MDS s/p stem cell transplant currently on chemotherapy who presents with several day history of fevers. Concern for pneumonia. Plan vancomycin/Zosyn for treatment of intermittent fevers Vancomycin IV * Loading dose: 1000 mg (9.8 mg/kg) then 1500 mg (14.5 mg/kg) q12 starting NOW (total loading of 25 mg/kg) * Maintenance dose: 1500 mg IV (14.5 mg/kg) every 12 hours (population pharmacokinetics suggest a half-life of 11.9 hours with elimination constant of 0.058 hr-1) * Goal trough level for pulmonary indication : 15 to 20 mcg/mL * Trough ordered for 04/19/18 Pharmacy will continue to follow and will adjust dose/frequency as necessary. Thank you.
[2018-04-17] MEDS: WARFARIN SOD 2.5 MG TAB PO SCH (16:28)
--- NOTE | 2018-04-17 16:53 | Hospitalist Progress Note ---
Hospitalist Progress Note Date of Service Apr 17, 2018. Subjective Pt evaluation today including: conversation w/ patient, physical exam, chart review, lab review, review of studies, conversation w/ technology methodology consultant (Dr. Dasilva ), review of inpatient medication list Patient seen and evaluated. Admitted early this AM for fever. Was feeling chilled during my visit but then developed fever and rigors. Obtained EKG to assess QTc which EKG shows sinus tach and ST elevations but not the best quality EKG. Will repeat given these findings. No symptoms of CP, SOB, palpitations, N/V. Actually states he felt much better minus the chills. Does state his daughter had a sore throat over the past week but states the only problem he had was joint aches and a fever. Lyme was negative. CXR suggests possible pneumonia. Discussed with Dr. Dasilva and she started Zithro for atypical coverage. Currently on Vanc/Zosyn/Zithro Constitutional: + chills, + fatigue ENT: No nasal symptoms, No sore throat Respiratory: + cough, No sputum, No shortness of breath Cardiovascular: No chest pain, No palpitations Abdomen: No pain, No nausea, No vomiting, No diarrhea, No constipation Musculoskeletal: No swelling, No calf pain Male : No dysuria Heme: No abnormal bleeding/bruising Skin: No rash Medications Current Inpatient Medications Medications (Trade) Dose Ordered Sig/Garcia Route Start Time Stop Time Status Last Admin Dose Admin Acetaminophen (Tylenol Tab) 650 mg Q4H PRN PO 04/17/18 06:15 05/17/18 06:14 04/17/18 13:09 650 MG Al Hydrox/Mg Hydrox/Simethicone (Maalox Max Susp) 15 ml Q4H PRN PO 04/17/18 06:15 05/17/18 06:14 Magnesium Hydroxide (Milk Of Magnesia Susp) 30 ml Q6H PRN PO 04/17/18 06:15 05/17/18 06:14 Polyethylene (Miralax Powder Packet) 17 gm DAILY PRN PO 04/17/18 06:30 05/17/18 06:29 Zolpidem Tartrate (Ambien Tab) 5 mg HSZ PRN PO 04/17/18 06:15 05/17/18 06:14 Ondansetron HCl (Zofran Inj) 4 mg Q6H PRN IV 04/17/18 06:15 05/17/18 06:14 Vancomycin HCl 1500 mg/Sodium Chloride 530 ml @ 200 mls/hr Q12H IV 04/17/18 08:00 05/01/18 08:59 04/17/18 09:24 200 MLS/HR Vancomycin HCl (Consult) 1 ea UD PRN N/A 04/17/18 06:15 05/17/18 06:14 Piperacillin Sod/ Tazobactam Sod 3.375 gm/Dextrose 115 ml @ 28.75 mls/ hr Q8H IV 04/17/18 10:00 05/01/18 11:59 04/17/18 10:10 28.75 MLS/HR Miscellaneous Information (Consult) 1 ea UD PRN N/A 04/17/18 06:15 05/17/18 06:14 Acyclovir (Zovirax Tab) 400 mg BID PO 04/17/18 08:00 04/27/18 08:59 04/17/18 09:34 400 MG Albuterol (Ventolin Hfa Inhaler) 2 puffs Q4 PRN INH 04/17/18 06:15 05/17/18 06:14 Bumetanide (Bumex Tab) 2 mg QAM PO 04/17/18 08:00 05/17/18 08:59 04/17/18 09:29 2 MG Dronedarone (Multaq Tab) 400 mg BID PO 04/17/18 08:00 05/17/18 08:59 04/17/18 09:33 400 MG Escitalopram Oxalate (Lexapro Tab) 10 mg DAILY PO 04/17/18 08:00 05/17/18 08:59 04/17/18 09:29 10 MG Metoprolol Tartrate (Lopressor Tab) 12.5 mg BID PO 04/17/18 08:00 05/17/18 08:59 04/17/18 09:30 12.5 MG Pantoprazole Sodium (Protonix Tab) 40 mg DAILY PRN PO 04/17/18 06:15 05/17/18 06:14 Potassium Chloride (Klor-Con M10) 10 meq BID17 PO 04/17/18 09:00 05/17/18 08:59 04/17/18 16:28 10 MEQ Miscellaneous Information (Order Awaiting Action) 1 ea QS N/A 04/17/18 08:00 05/17/18 07:59 Warfarin Sodium (Coumadin Tab) 2.5 mg DAILY@1600 PO 04/17/18 16:00 05/17/18 15:59 04/17/18 16:28 2.5 MG Azithromycin (Zithromax Tab) 500 mg QAM PO 04/18/18 08:00 04/25/18 07:59 Objective Vital Signs Date Time Temp Pulse Resp B/P (MAP) Pulse Ox O2 Delivery O2 Flow Rate FiO2 04/17/18 16:26 37.6 04/17/18 15:38 39.2 105 18 100/61 (74) 97 Room Air 04/17/18 14:35 37.7 04/17/18 14:05 39.1 04/17/18 13:07 37.4 04/17/18 12:28 37.1 51 20 111/80 (90) 98 Room Air 04/17/18 07:40 36.8 81 20 99/64 (76) 97 Room Air 04/17/18 07:30 36.8 81 20 99/66 97 Room Air 04/17/18 07:04 37.2 86 16 116/64 97 04/17/18 06:51 86 16 116/64 97 Room Air 04/17/18 05:49 37.2 98 20 95/58 97 Room Air 04/17/18 04:33 122 04/17/18 04:23 39.5 85 20 111/79 97 Room Air Physical Exam General Appearance: WD/WN, no apparent distress Eyes: sclerae normal ENT: hearing grossly normal, pharynx normal Neck: supple, no JVD, trachea midline Respiratory/Chest: lungs clear, normal breath sounds, no respiratory distress, no accessory muscle use Cardiovascular: regular rate, rhythm Abdomen: normal bowel sounds, non tender, soft Extremities: no pedal edema, no calf tenderness Neurologic/Psychiatric: alert Skin: normal color, warm/dry Laboratory Results Last 24 Hours Test 04/17/18 04:38 04/17/18 04:45 04/17/18 04:50 04/17/18 09:53 White Blood Count 10.70 K/uL Red Blood Count 3.93 M/uL Hemoglobin 13.1 g/dL 13.4 g/dL Hematocrit 36.8 % Mean Corpuscular Volume 93.6 fL Mean Corpuscular Hemoglobin 33.3 pg Mean Corpuscular Hemoglobin Concent 35.6 g/dl Platelet Count 143 K/uL Mean Platelet Volume 11.3 fL Neutrophils (%) (Auto) 86.8 % Lymphocytes (%) (Auto) 6.5 % Monocytes (%) (Auto) 5.9 % Eosinophils (%) (Auto) 0.4 % Basophils (%) (Auto) 0.0 % Neutrophils # (Auto) 9.29 K/uL Lymphocytes # (Auto) 0.70 K/uL Monocytes # (Auto) 0.63 K/uL Eosinophils # (Auto) 0.04 K/uL Basophils # (Auto) 0.00 K/uL RDW Standard Deviation 42.9 fL RDW Coefficient of Variation 12.5 % Immature Granulocyte % (Auto) 0.4 % Immature Granulocyte # (Auto) 0.04 K/uL Prothrombin Time 20.6 SECONDS Prothromb Time International Ratio 2.0 Activated Partial Thromboplast Time 47.6 SECONDS Partial Thromboplastin Ratio 1.8 Sodium Level 134 mmol/L Potassium Level 3.1 mmol/L Chloride Level 102 mmol/L Carbon Dioxide Level 23 mmol/L Anion Gap 9.0 mmol/L Blood Urea Nitrogen 16 mg/dl Creatinine 1.65 mg/dl Est Creatinine Clear Calc Drug Dose 64.7 ml/min Estimated GFR () 56.1 Estimated GFR (Non- 48.4 BUN/Creatinine Ratio 10.0 Random Glucose 125 mg/dl Calcium Level 8.2 mg/dl Magnesium Level 1.7 mg/dl Total Bilirubin 0.6 mg/dl Aspartate Amino Transf (AST/SGOT) 12 U/L Alanine Aminotransferase (ALT/SGPT) 23 U/L Alkaline Phosphatase 97 U/L Total Protein 6.2 gm/dl Albumin 2.8 gm/dl Globulin 3.4 gm/dl Albumin/Globulin Ratio 0.8 Lyme Disease IgG Antibody NEG Lyme Disease IgM Antibody NEG Bedside Lactic Acid Venous 1.58 mmol/L Influenza Type A Antigen Neg for Influ A Influenza Type B Antigen Neg for Influ B Test 04/17/18 10:05 Urine Color YELLOW Urine Appearance CLEAR Urine pH 6.0 Urine Specific [place] 1.016 Urine Protein 1+ Urine Glucose (UA) NEG Urine Ketones NEG Urine Occult Blood NEG Urine Nitrite NEG Urine Bilirubin NEG Urine Urobilinogen NEG Urine Leukocyte Esterase NEG Urine WBC (Auto) 1-5 /hpf Urine RBC (Auto) 0-4 /hpf Urine Hyaline Casts (Auto) 0 /lpf Urine Epithelial Cells (Auto) 5-10 /lpf Urine Bacteria (Auto) NEG Assessment and Plan 47 y/o M Hx multiple myeloma, amyloidosis, grade II diastolic dysfunction, paroxysmal AF, DEBBY, CKD II. Multiple admissions in 2018 for volume overload. Presents with intermittent fevers for 4 days. He was initially evaluated at [facility] for the fever and was sent home after blood cultures returned negative. He was not placed on antibiotics. He denies a productive cough, N/V, or dysuria. He does have chronic diarrhea A fever of 39.5 was confirmed on arrival to the ER. Initial labs are notable for a low K, low Mg and protein malnutrition. Renal function is at baseline. Fever - Viral URI vs PNA? - Immunocompromised State - BCx pending at this time; UA unremarkable; no C. diff; stool cx pending - Zosyn/Vanc/Zithro initiated at this time - Tylenol PRN - ID following - discussed with Dr. Dasilva - likely can be weaned to Zithro alone but will monitor Chronic Diastolic CHF/Restrictive Disease/Amyloidosis: Appears Euvolemic - Continue Bumex 2 mg daily Paroxysmal Atrial Fibrillation/Flutter: - Does have elevated rates with temperature increases - therapeutic INR - Dronedarone 400 mg BID and Lopressor 12.5 mg BID - Coumadin 2.5 mg daily and trend INR CKD Stage II: STABLE - Baseline Cr 1.6-1.7 and will continue to monitor Anemia: STABLE - Will continue to monitor - no signs of acute bleed Multiple Myeloma: STABLE - Continue F/U as outpatient DVT Prophylaxis: Coumadin Code Status: FULL Disposition: Await Cx - possible D/C next 1-2 days Continued [facility] stay due to: fever Discharge planning: home
[2018-04-18] VITALS (9 sets, daily range): BP systolic 99–116; BP diastolic 61–76; PULSE 58–133; TEMP 36.9–38; O2SAT 95–99; BMI 33.8
--- NOTE | 2018-04-18 00:37 | EMERGENCY ROOM VISIT NOTE ---
History First contact with patient: 04:22 Chief Complaint: FEVER Stated Complaint: FUO, MULTIPLE MYELOMA History of Present Illness The patient is a 48 year old male who presents to the Emergency Room with complaints of fever at home for the past 6 days. The patient has a history of multiple myeloma and receives chemotherapy treatments at this facility. The patient states that he initially went to [facility] with this complaint 3 days ago, where blood cultures were performed and reportedly negative. The patient was not started on any medication. The patient has intermittently been taking Advil and Tylenol for his symptoms, which initially helped, however today his fever persists. The patient does not report distinct chest pain, chest tightness, or shortness of breath. No abdominal pain. No difficulty using the bathroom, although he did report 2-3 days of diarrhea earlier. The patient does not have recent travel history or other changes to his ADLs. The patient rates his current discomfort a 1/10. Review of Systems More than 10 systems were reviewed and otherwise negative with the exception of history of present illness. 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 (9) Multiple myeloma (10) New onset atrial fibrillation Surgical Problems: (1) History of autologous stem cell transplant Family History Not known due to adoption Social History Smoking Status: Never Smoker Drug Use: none Marital Status: Occupation Status: employed Current/Historical Medications Scheduled Acyclovir (Acyclovir), 1 TAB PO BID Bortezomib (Velcade), 1 DOSE INJ WK Bumetanide (Bumetanide), 2 MG PO QAM Dronedarone Hcl (Multaq), 400 MG PO BID Escitalopram (Lexapro), 10 MG PO DAILY Metoprolol Tartrate (Lopressor) (Lopressor), 12.5 MG PO BID Potassium Chloride Microencaps (Potassium Chloride Er), 10 MEQ PO BID Prednisone (Prednisone), 20 MG PO UD Warfarin Sod (Coumadin), 2.5 MG PO DAILY [duratumumad], 1 DOSE IV q3 weeks Scheduled PRN Albuterol Hfa (Ventolin Hfa), 2 PUFFS INH Q4 PRN for Cough Pantoprazole (Pantoprazole Sodium), 40 MG PO DAILY PRN for Indigestion Physical Exam Vital Signs Date Time Temp Pulse Resp B/P (MAP) Pulse Ox O2 Delivery O2 Flow Rate FiO2 04/17/18 05:49 37.2 98 20 95/58 97 Room Air 04/17/18 04:33 122 04/17/18 04:23 39.5 85 20 111/79 97 Room Air Physical Exam VITALS: Vitals are noted on the nurse's note and reviewed by myself. Vital signs with noted fever GENERAL: Mildly diaphoretic white male who is ill-appearing but cooperative with examination. HEAD: Normocephalic atraumatic. EARS: External ear normal. External auditory canals clear, tympanic membranes pearly gamboa without erythema or effusion bilaterally. EYES: Pupils equal round and reactive to light and accommodation. Conjunctivae without injection, sclerae without icterus. Extraocular movements intact. NOSE: Patent, turbinates without inflammation or discharge. MOUTH: Mucous membranes moist. Tonsils are not enlarged. Pharynx without erythema, blood, or exudate. Uvula midline. Airway patent. NECK: Supple without nuchal rigidity. No lymphadenopathy. No thyromegaly. Cervical spine is nontender. HEART: Regular rate and rhythm without murmurs gallops or rubs. LUNGS: Clear to auscultation bilaterally without wheezes, rales or rhonchi. No retractions or accessory muscle use. ABDOMEN: Positive normal bowel sounds x 4. Soft, nontender, without masses or organomegaly. No guarding or rebound tenderness. MUSCULOSKELETAL: No muscle atrophy, erythema, or edema noted. Full range of motion in all extremities. NEURO: Patient was alert and oriented to person place and time. CN II through XII grossly intact. Medical Decision & Procedures ER Provider Diagnostic Interpretation: CHEST 2 VIEWS ROUTINE HISTORY: Fever. On chemo COMPARISON: Chest 12/28/2017. FINDINGS: No pneumothorax. No pleural effusions. The heart remains mildly enlarged. Hazy appearance the right lung base is likely due to overlapping soft tissue. Otherwise, the right lung appears clear. There is a new left upper lobe/lingular airspace opacity. IMPRESSION: 1. A new left upper lobe/lingular airspace opacity. This likely represents a pneumonia. One month chest x-ray follow-up is recommended to ensure resolution. 2. Stable mild cardiomegaly. Laboratory Results 04/17/18 04:38 Red Blood Count 3.93, Mean Corpuscular Volume 93.6, Mean Corpuscular Hemoglobin 33.3, Mean Corpuscular Hemoglobin Concent 35.6, Mean Platelet Volume 11.3, Neutrophils (%) (Auto) 86.8, Lymphocytes (%) (Auto) 6.5, Monocytes (%) (Auto) 5.9, Eosinophils (%) (Auto) 0.4, Basophils (%) (Auto) 0.0, Neutrophils # (Auto) 9.29, Lymphocytes # (Auto) 0.70, Monocytes # (Auto) 0.63, Eosinophils # (Auto) 0.04, Basophils # (Auto) 0.00 04/17/18 04:38 Test 04/17/18 04:38 04/17/18 04:45 04/17/18 04:50 White Blood Count 10.70 K/uL (4.8-10.8) Red Blood Count 3.93 M/uL (4.7-6.1) Hemoglobin 13.1 g/dL (14.0-18.0) Hematocrit 36.8 % (42-52) Mean Corpuscular Volume 93.6 fL (80-100) Mean Corpuscular Hemoglobin 33.3 pg (25-34) Mean Corpuscular Hemoglobin Concent 35.6 g/dl (32-36) Platelet Count 143 K/uL (130-400) Mean Platelet Volume 11.3 fL (7.4-10.4) Neutrophils (%) (Auto) 86.8 % Lymphocytes (%) (Auto) 6.5 % Monocytes (%) (Auto) 5.9 % Eosinophils (%) (Auto) 0.4 % Basophils (%) (Auto) 0.0 % Neutrophils # (Auto) 9.29 K/uL (1.4-6.5) Lymphocytes # (Auto) 0.70 K/uL (1.2-3.4) Monocytes # (Auto) 0.63 K/uL (0.11-0.59) Eosinophils # (Auto) 0.04 K/uL (0-0.5) Basophils # (Auto) 0.00 K/uL (0-0.2) RDW Standard Deviation 42.9 fL (36.4-46.3) RDW Coefficient of Variation 12.5 % (11.5-14.5) Immature Granulocyte % (Auto) 0.4 % Immature Granulocyte # (Auto) 0.04 K/uL (0.00-0.02) Prothrombin Time 20.6 SECONDS (9.0-12.0) Prothromb Time International Ratio 2.0 (0.9-1.1) Activated Partial Thromboplast Time 47.6 SECONDS (21.0-31.0) Partial Thromboplastin Ratio 1.8 Anion Gap 9.0 mmol/L (3-11) Est Creatinine Clear Calc Drug Dose 64.7 ml/min Estimated GFR () 56.1 Estimated GFR (Non- 48.4 BUN/Creatinine Ratio 10.0 (10-20) Calcium Level 8.2 mg/dl (8.5-10.1) Magnesium Level 1.7 mg/dl (1.8-2.4) Total Bilirubin 0.6 mg/dl (0.2-1) Aspartate Amino Transf (AST/SGOT) 12 U/L (15-37) Alanine Aminotransferase (ALT/SGPT) 23 U/L (12-78) Alkaline Phosphatase 97 U/L (45-117) Total Protein 6.2 gm/dl (6.4-8.2) Albumin 2.8 gm/dl (3.4-5.0) Globulin 3.4 gm/dl (2.5-4.0) Albumin/Globulin Ratio 0.8 (0.9-2) Lyme Disease IgG Antibody NEG (NEG) Lyme Disease IgM Antibody NEG (NEG) Bedside Lactic Acid Venous 1.58 mmol/L (0.90-1.70) Influenza Type A Antigen Neg for Influ A (NEG) Influenza Type B Antigen Neg for Influ B (NEG) Medications Administered Medications (Trade) Dose Ordered Sig/Garcia Route Start Time Stop Time Status Last Admin Dose Admin Ketorolac Tromethamine (Toradol Inj) 30 mg NOW STAT IV 04/17/18 04:29 04/17/18 04:33 DC 04/17/18 04:42 30 MG Sodium Chloride 1,000 ml @ 999 mls/hr Q1H1M ONCE IV 04/17/18 04:30 04/17/18 05:30 DC 04/17/18 04:42 999 MLS/HR Sodium Chloride 1,000 ml @ 999 mls/hr Q1H1M ONCE IV 04/17/18 04:30 04/17/18 05:30 DC 04/17/18 04:42 999 MLS/HR Acetaminophen (Ofirmev Iv) 1,000 mg STK-MED ONCE IV 04/17/18 04:35 04/17/18 04:36 DC 04/17/18 04:42 1,000 MG Vancomycin HCl 1000 mg/Sodium Chloride 270 ml @ 125 mls/hr NOW STAT IV 04/17/18 05:00 04/17/18 07:09 DC 04/17/18 05:50 125 MLS/HR Piperacillin Sod/ Tazobactam Sod (Zosyn Iv) 4.5 gm NOW STAT IV 04/17/18 05:00 04/17/18 05:01 DC 04/17/18 05:15 4.5 GM Magnesium Sulfate (Magnesium Sulfate 1gm / D5W) 1 gm STK-MED ONCE IV 04/17/18 06:10 04/17/18 06:11 DC 04/17/18 06:28 1 GM ED Course Physical exam and history were performed. Nursing notes, EMR, and Medication List were personally reviewed. Patient appears to have a fever of 39.5F here in the department. The patient has a history of multiple myeloma and is considered immunocompromised secondary to his chemotherapy. IV access was established and labs were obtained. The patient was hydrated with normal saline and given IV Toradol, and IV Tylenol for the fever. Pancultures were obtained. The patient was placed under contact precautions and started on IV vancomycin and IV Zosyn because of his history. The patient's blood work is as above and was reviewed. Does not have a significantly elevated white blood cell count, gross anemia, bandemia, or significant electrolyte imbalance. He is slightly increased with his creatinine , however this may be chronic. His lactic acid is negative with cultures pending. Urine is without obvious infection. Chest x-ray was performed and reviewed by myself and radiology as possible pneumonia. Overall the patient does not appear well for discharge home. I discussed the case with my attending physician as well as my medical case manager. We then discussed the case with the on-call hospitalist, who agreed to evaluate the patient here in the department. Please see their dictation for further patient course, plan , and disposition. The chart was completed utilizing Dragon Speech Voice Recognition Software. Grammatical errors, random word insertions, pronoun errors, and incomplete sentences are an occasional consequence of this system due to software limitations, ambient noise, and hardware issues. Any formal questions or concerns about the content, text, or information contained within the body of this dictation should be directly addressed to the provider for clarification. . Medical Decision Differential diagnosis: Etiologies such as viral syndrome, otitis, pharyngitis, pneumonia, influenza, meningitis, urinary tract infection, sepsis, bacteremia, as well as others were entertained. Impression Primary Impression: FUO (fever of unknown origin) Additional Impression: Immunocompromised state Departure Information Dispostion Admitted as an inpatient Referrals Jc Quan M.D. (PCP) Forms HOME CARE DOCUMENTATION FORM, IMPORTANT VISIT INFORMATION Patient Instructions [facility] Health Problem Qualifiers
[2018-04-18] MEDS: PIPERACILL/TAZOBAC IV 3.375 GM in DEXTROSE 5% 100ML 100 ML IV SCH ×3 (01:43→17:30)
[2018-04-18 06:12] LABS: HEMATOCRIT 35.4 % (42-52); HEMOGLOBIN 12.3 g/dL (14.0-18.0); MEAN CELL VOLUME 94.7 fL (80-100); MEAN CORPUSCULAR HEMOGLOBIN 32.9 pg (25-34); MEAN CORPUSCULAR HGB CONC 34.7 g/dl (32-36); MEAN PLATELET VOLUME 11.1 fL (7.4-10.4); PLATELET COUNT 135 K/uL (130-400); RED CELL DISTRIBUTION WIDTH CV 12.7 % (11.5-14.5); RED CELL DISTRIBUTION WIDTH SD 43.5 fL (36.4-46.3)
[2018-04-18 06:28] LABS: INR 1.9 (0.9-1.1)
[2018-04-18 06:48] LABS: CALCIUM 7.8 mg/dl (8.5-10.1); CREATININE 1.56 mg/dl (0.60-1.40); POTASSIUM 3.3 mmol/L (3.5-5.1)
[2018-04-18] MEDS: ESCITALOPRAM OXALATE 10 MG TAB PO SCH (07:59)
[2018-04-18] MEDS: BUMETANIDE 1 MG TAB PO SCH (07:59)
[2018-04-18] MEDS: AZITHROMYCIN 250 MG TAB PO SCH (08:00)
[2018-04-18] MEDS: DRONEDARONE 400 MG TAB PO SCH ×2 (08:00→20:11)
[2018-04-18] MEDS: ACYCLOVIR 400 MG TAB PO SCH ×2 (08:00→20:10)
[2018-04-18] MEDS: METOPROLOL TARTRATE 25 MG TAB PO SCH ×2 (08:00→20:10)
[2018-04-18] MEDS: POTASSIUM CHLORIDE 10 MEQ TABCR PO SCH ×2 (08:01→17:24)
[2018-04-18] MEDS: VANCOMYCIN IV 1,500 MG in SODIUM CHLORIDE 0.9% 500ML 500 ML IV SCH (08:07)
--- NOTE | 2018-04-18 13:10 | Progress Note ---
Subjective Date of Service: Apr 18, 2018. Subjective Pt evaluation today including: conversation w/ patient, physical exam, chart review, lab review pt seen in followup, doing well overall, feeling somewhat better this am but states poor appetite, attempting lunch on my exam. no f/c currently but fevers with sweats overnight, tmax 39.2. tolerating abx. no cough, sob, wheeze, no cp. no abd pain, no n/v. cultures remain negative, remaining ros reviewed and are negative. Problem List Medical Problems: (1) Bilateral pleural effusion Status: Acute (2) Congestive heart failure Status: Acute (3) Elevated troponin Status: Acute (4) Elevated troponin Status: Acute (5) Hyperglycemia Status: Acute (6) Immunocompromised state Status: Acute (7) Precordial chest pain Status: Acute (8) Tachy-jasper syndrome Status: Acute (9) Thrombocytopenia Status: Acute Objective Vital Signs Date Time Temp Pulse Resp B/P (MAP) Pulse Ox O2 Delivery O2 Flow Rate FiO2 04/18/18 11:25 37.1 58 18 99/65 (76) 97 Room Air 04/18/18 07:12 37.3 68 18 102/65 (77) 97 Room Air 04/18/18 06:00 37.2 95 20 116/69 (85) 99 Room Air 04/18/18 05:06 36.9 89 19 113/76 (88) 97 Room Air 04/18/18 00:00 97 Room Air 04/17/18 20:00 Room Air 04/17/18 19:18 37.3 18 119/75 (90) 98 Room Air 04/17/18 16:26 37.6 04/17/18 16:10 Room Air 04/17/18 15:38 39.2 105 18 100/61 (74) 97 Room Air 04/17/18 14:35 37.7 04/17/18 14:05 39.1 Physical Exam General Appearance: WD/WN, no apparent distress Eyes: normal inspection, PERRL Neck: supple Respiratory/Chest: normal breath sounds, no respiratory distress, + decreased breath sounds, + pertinent finding (decreased left) Cardiovascular: regular rate, rhythm, no edema, no murmur Abdomen: non tender, soft Extremities: non-tender, no pedal edema Neurologic/Psychiatric: alert, oriented x 3 Skin: normal color Laboratory Results Item Value Date Time Blood Culture - Preliminary Resulted 04/17/18437 Blood NO GROWTH TO DATE. Blood Culture - Preliminary Resulted 04/17/18434 Blood NO GROWTH TO DATE. Last 24 Hours Test 04/18/18 05:54 White Blood Count 9.40 K/uL Red Blood Count 3.74 M/uL Hemoglobin 12.3 g/dL Hematocrit 35.4 % Mean Corpuscular Volume 94.7 fL Mean Corpuscular Hemoglobin 32.9 pg Mean Corpuscular Hemoglobin Concent 34.7 g/dl RDW Standard Deviation 43.5 fL RDW Coefficient of Variation 12.7 % Platelet Count 135 K/uL Mean Platelet Volume 11.1 fL Prothrombin Time 20.2 SECONDS Prothromb Time International Ratio 1.9 Sodium Level 137 mmol/L Potassium Level 3.3 mmol/L Chloride Level 103 mmol/L Carbon Dioxide Level 27 mmol/L Anion Gap 7.0 mmol/L Blood Urea Nitrogen 14 mg/dl Creatinine 1.56 mg/dl Est Creatinine Clear Calc Drug Dose 68.5 ml/min Estimated GFR () 60.0 Estimated GFR (Non- 51.8 BUN/Creatinine Ratio 9.0 Random Glucose 111 mg/dl Calcium Level 7.8 mg/dl Magnesium Level 2.0 mg/dl Procalcitonin 0.18 ng/ml Assessment and Plan (1) PNA (pneumonia) Assessment & Plan: continue abx, follow cultures Continued [facility] stay due to: fever Discharge planning: home
[2018-04-18] MEDS: WARFARIN SOD 2.5 MG TAB PO SCH (15:35)
--- NOTE | 2018-04-18 16:16 | Progress Note ---
Subjective Date of Service: Apr 18, 2018. Subjective Pt evaluation today including: conversation w/ patient, physical exam, lab review, review of inpatient medication list Pain: no pain PO Intake: adequate Voiding: no voiding problems no fever since 04/17 at 1500, did have night sweats last evening, soaked the sheets twice says he feels okay, has a mild cough, no sputum production reviewed labs, WBC normal discussed going home tomorrow if he remains afebrile, he agrees with plan Problem List Medical Problems: (1) Bilateral pleural effusion Status: Acute (2) Congestive heart failure Status: Acute (3) Elevated troponin Status: Acute (4) Elevated troponin Status: Acute (5) Hyperglycemia Status: Acute (6) Immunocompromised state Status: Acute (7) Precordial chest pain Status: Acute (8) Tachy-jasper syndrome Status: Acute (9) Thrombocytopenia Status: Acute Review of Systems Constitutional: + fever, + sweats, + weakness All Other Systems: Reviewed and Negative Medications Current Inpatient Medications Medications (Trade) Dose Ordered Sig/Garcia Route Start Time Stop Time Status Last Admin Dose Admin Acetaminophen (Tylenol Tab) 650 mg Q4H PRN PO 04/17/18 06:15 05/17/18 06:14 04/17/18 13:09 650 MG Al Hydrox/Mg Hydrox/Simethicone (Maalox Max Susp) 15 ml Q4H PRN PO 04/17/18 06:15 05/17/18 06:14 Magnesium Hydroxide (Milk Of Magnesia Susp) 30 ml Q6H PRN PO 04/17/18 06:15 05/17/18 06:14 Polyethylene (Miralax Powder Packet) 17 gm DAILY PRN PO 04/17/18 06:30 05/17/18 06:29 Zolpidem Tartrate (Ambien Tab) 5 mg HSZ PRN PO 04/17/18 06:15 05/17/18 06:14 Ondansetron HCl (Zofran Inj) 4 mg Q6H PRN IV 04/17/18 06:15 05/17/18 06:14 Vancomycin HCl 1500 mg/Sodium Chloride 530 ml @ 200 mls/hr Q12H IV 04/17/18 08:00 05/01/18 08:59 04/18/18 08:07 200 MLS/HR Vancomycin HCl (Consult) 1 ea UD PRN N/A 04/17/18 06:15 05/17/18 06:14 Piperacillin Sod/ Tazobactam Sod 3.375 gm/Dextrose 115 ml @ 28.75 mls/ hr Q8H IV 04/17/18 10:00 05/01/18 11:59 04/18/18 10:33 28.75 MLS/HR Miscellaneous Information (Consult) 1 ea UD PRN N/A 04/17/18 06:15 05/17/18 06:14 Acyclovir (Zovirax Tab) 400 mg BID PO 04/17/18 08:00 04/27/18 08:59 04/18/18 08:00 400 MG Albuterol (Ventolin Hfa Inhaler) 2 puffs Q4 PRN INH 04/17/18 06:15 05/17/18 06:14 Bumetanide (Bumex Tab) 2 mg QAM PO 04/17/18 08:00 05/17/18 08:59 04/18/18 07:59 2 MG Dronedarone (Multaq Tab) 400 mg BID PO 04/17/18 08:00 05/17/18 08:59 04/18/18 08:00 400 MG Escitalopram Oxalate (Lexapro Tab) 10 mg DAILY PO 04/17/18 08:00 05/17/18 08:59 04/18/18 07:59 10 MG Metoprolol Tartrate (Lopressor Tab) 12.5 mg BID PO 04/17/18 08:00 05/17/18 08:59 04/18/18 08:00 12.5 MG Pantoprazole Sodium (Protonix Tab) 40 mg DAILY PRN PO 04/17/18 06:15 05/17/18 06:14 Potassium Chloride (Klor-Con M10) 10 meq BID17 PO 04/17/18 09:00 05/17/18 08:59 04/18/18 08:01 10 MEQ Miscellaneous Information (Order Awaiting Action) 1 ea QS N/A 04/17/18 08:00 05/17/18 07:59 Warfarin Sodium (Coumadin Tab) 2.5 mg DAILY@1600 PO 04/17/18 16:00 05/17/18 15:59 04/18/18 15:35 2.5 MG Azithromycin (Zithromax Tab) 500 mg QAM PO 04/18/18 08:00 04/25/18 07:59 04/18/18 08:00 500 MG Objective Vital Signs Date Time Temp Pulse Resp B/P (MAP) Pulse Ox O2 Delivery O2 Flow Rate FiO2 04/18/18 14:54 36.9 20 116/73 (87) 97 Room Air 04/18/18 11:25 37.1 58 18 99/65 (76) 97 Room Air 04/18/18 07:12 37.3 68 18 102/65 (77) 97 Room Air 04/18/18 06:00 37.2 95 20 116/69 (85) 99 Room Air 04/18/18 05:06 36.9 89 19 113/76 (88) 97 Room Air 04/18/18 00:00 97 Room Air 04/17/18 20:00 Room Air 04/17/18 19:18 37.3 18 119/75 (90) 98 Room Air 04/17/18 16:26 37.6 Physical Exam General Appearance: WD/WN, no apparent distress Eyes: normal inspection, EOMI, sclerae normal ENT: normal ENT inspection, hearing grossly normal, pharynx normal Neck: supple, no adenopathy, no JVD, trachea midline Respiratory/Chest: chest non-tender, lungs clear, normal breath sounds, no respiratory distress, no accessory muscle use Cardiovascular: regular rate, rhythm, no edema, no gallop, no JVD, no murmur Abdomen: normal bowel sounds, non tender, soft, no organomegaly Extremities: normal range of motion, non-tender, normal inspection, no pedal edema, no calf tenderness, pelvis stable Neurologic/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: 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, no motor/sensory deficits, alert, normal mood/affect, oriented x 3 Skin: normal color, warm/dry, no rash Laboratory Results Last 24 Hours Test 04/18/18 05:54 White Blood Count 9.40 K/uL Red Blood Count 3.74 M/uL Hemoglobin 12.3 g/dL Hematocrit 35.4 % Mean Corpuscular Volume 94.7 fL Mean Corpuscular Hemoglobin 32.9 pg Mean Corpuscular Hemoglobin Concent 34.7 g/dl RDW Standard Deviation 43.5 fL RDW Coefficient of Variation 12.7 % Platelet Count 135 K/uL Mean Platelet Volume 11.1 fL Prothrombin Time 20.2 SECONDS Prothromb Time International Ratio 1.9 Sodium Level 137 mmol/L Potassium Level 3.3 mmol/L Chloride Level 103 mmol/L Carbon Dioxide Level 27 mmol/L Anion Gap 7.0 mmol/L Blood Urea Nitrogen 14 mg/dl Creatinine 1.56 mg/dl Est Creatinine Clear Calc Drug Dose 68.5 ml/min Estimated GFR () 60.0 Estimated GFR (Non- 51.8 BUN/Creatinine Ratio 9.0 Random Glucose 111 mg/dl Calcium Level 7.8 mg/dl Magnesium Level 2.0 mg/dl Procalcitonin 0.18 ng/ml Assessment and Plan 47 y/o M Hx multiple myeloma, amyloidosis, grade II diastolic dysfunction, paroxysmal AF, DEBBY, CKD II. Multiple admissions in 2018 for volume overload. Presents with intermittent fevers for 4 days. He was initially evaluated at [facility] for the fever and was sent home after blood cultures returned negative. He was not placed on antibiotics. He denies a productive cough, N/V, or dysuria. He does have chronic diarrhea A fever of 39.5 was confirmed on arrival to the ER. Initial labs are notable for a low K, low Mg and protein malnutrition. Renal function is at baseline. Fever - Viral URI vs PNA? - Immunocompromised State with MM - Blood cultures negative to date, C diff negative, stool cultures negative - Zosyn/Vanc/Zithro initiated at this time, stop Vanco - Tylenol PRN - no true fever since 04/17 at 1500, had sweats last night - if no fever through tomorrow AM, will d/c to home on Zithromax Chronic Diastolic CHF/Restrictive Disease/Amyloidosis: Appears Euvolemic - Continue Bumex 2 mg daily, no signs of volume overload Paroxysmal Atrial Fibrillation/Flutter: - Does have elevated rates with temperature increases - therapeutic INR - Dronedarone 400 mg BID and Lopressor 12.5 mg BID - Coumadin 2.5 mg daily and trend INR, 1.9 today, will repeat tomorrow CKD Stage II: STABLE - Baseline Cr 1.6-1.7 and will continue to monitor, stable today Anemia: STABLE - Will continue to monitor - no signs of acute bleed Multiple Myeloma: STABLE - Continue F/U as outpatient, sees oncology here at [facility] DVT Prophylaxis: Coumadin Code Status: FULL Disposition: d/c to home tomorrow if no fever Continued [facility] stay due to: fever Discharge planning: home
[2018-04-18] MEDS ORDERED: LOPERAMIDE HCL 2 MG CAP PO PRN (16:30)
[2018-04-18] MEDS: LACTOBACILLUS ACIDOPHILUS (FLORANEX) TAB PO SCH (17:35)
[2018-04-18] MEDS: CHOLESTYRAMINE LIGHT 4 GM PKT PO SCH (22:08)
[2018-04-18] MEDS: ACETAMINOPHEN 325 MG TAB PO PRN (23:31)
[2018-04-19] VITALS (9 sets, daily range): BP systolic 93–121; BP diastolic 60–77; PULSE 71–136; TEMP 36.6–37.4; O2SAT 96–99; BMI 33.7
[2018-04-19] MEDS: PIPERACILL/TAZOBAC IV 3.375 GM in DEXTROSE 5% 100ML 100 ML IV SCH ×3 (01:39→17:30)
[2018-04-19 06:02] LABS: BASO % 0.1 %; BASO ABS # 0.01 K/uL (0-0.2); EOS % 1.7 %; EOS ABS # 0.12 K/uL (0-0.5); HEMATOCRIT 36.2 % (42-52); HEMOGLOBIN 12.5 g/dL (14.0-18.0); IG# 0.02 K/uL (0.00-0.02); LYMPH % 9.2 %; LYMPH ABS # 0.66 K/uL (1.2-3.4); MEAN CELL VOLUME 94.8 fL (80-100); MEAN CORPUSCULAR HEMOGLOBIN 32.7 pg (25-34); MEAN CORPUSCULAR HGB CONC 34.5 g/dl (32-36); MEAN PLATELET VOLUME 11.5 fL (7.4-10.4); MONO % 7.7 %; MONO ABS # 0.55 K/uL (0.11-0.59); PLATELET COUNT 151 K/uL (130-400); RED CELL DISTRIBUTION WIDTH CV 12.7 % (11.5-14.5); RED CELL DISTRIBUTION WIDTH SD 43.8 fL (36.4-46.3); WHITE BLOOD COUNT 7.16 K/uL (4.8-10.8)
[2018-04-19 06:06] LABS: INR 2.1 (0.9-1.1)
[2018-04-19 06:32] LABS: CREATININE 1.35 mg/dl (0.60-1.40)
[2018-04-19] MEDS ORDERED: VANCOMYCIN TROUGH ONE (07:30)
[2018-04-19] MEDS: ESCITALOPRAM OXALATE 10 MG TAB PO SCH (08:13)
[2018-04-19] MEDS: ACYCLOVIR 400 MG TAB PO SCH ×2 (08:13→20:15)
[2018-04-19] MEDS: METOPROLOL TARTRATE 25 MG TAB PO SCH ×2 (08:14→20:15)
[2018-04-19] MEDS: AZITHROMYCIN 250 MG TAB PO SCH (08:14)
[2018-04-19] MEDS: BUMETANIDE 1 MG TAB PO SCH (08:14)
[2018-04-19] MEDS: POTASSIUM CHLORIDE 10 MEQ TABCR PO SCH ×2 (08:15→17:30)
[2018-04-19] MEDS: DRONEDARONE 400 MG TAB PO SCH ×2 (08:15→20:16)
[2018-04-19] MEDS: LACTOBACILLUS ACIDOPHILUS (FLORANEX) TAB PO SCH ×3 (08:15→17:30)
[2018-04-19] MEDS ORDERED: OPTIRAY 320 IV PRN (09:30)
[2018-04-19] MEDS: CHOLESTYRAMINE LIGHT 4 GM PKT PO SCH ×2 (09:56→21:33)
[2018-04-19] MEDS ORDERED: NSS + 20MEQ KCL 1000ML 1,000 ML IV SCH (10:00)
--- NOTE | 2018-04-19 11:31 | DIAGNOSTIC IMAGING REPORT ---
CT SCAN OF THE CHEST, ABDOMEN, AND PELVIS WITH IV CONTRAST CLINICAL HISTORY: Fever. History of multiple myeloma. COMPARISON STUDY: Chest CT scans dated 11/24/2017 and 05/09/2014. Abdominal ultrasound dated 12/09/2014. TECHNIQUE: Following the IV administration of 93 of Optiray 320, CT scan of the chest, abdomen, and pelvis was performed from the thoracic inlet to the proximal femora. Images are reviewed in the axial, sagittal, and coronal planes. IV contrast was administered without complication. A dose lowering technique was utilized adhering to the principles of ALARA. CT DOSE: 1443.39 mGy.cm FINDINGS: CHEST: Thyroid: Imaged portions of the thyroid gland are normal in size and heterogeneous in attenuation. Thoracic aorta: The thoracic aorta is normal in caliber and demonstrates standard 3-vessel arch anatomy. No dissection is seen. Pulmonary vasculature: The pulmonary trunk is normal in caliber. There are no filling defects identified in the central pulmonary vessels to indicate pulmonary embolus. Note that this examination was not protocoled for evaluation of the pulmonary arteries. Heart: The heart is mildly enlarged and there is a small to moderate pericardial effusion. The left coronary artery is densely calcified. Lungs and pleural spaces: There are small pleural effusions, right larger than left with associated atelectasis. There is diffuse patchy consolidation seen throughout the left lung. Mild patchy consolidation is seen in the right upper lobe. The trachea and central airways are clear. Mediastinum: There are numerous subcentimeter mediastinal lymph nodes. Saray: Clear. Axillae: There is no axillary lymphadenopathy. Bony thorax: The skeletal structures are heterogeneous. Numerous tiny osteolytic lesions are seen throughout the entire visualized bony thorax, consistent with the reported history of multiple myeloma. There is no evidence of pathologic fracture.. ABDOMEN AND PELVIS: Liver: The contrast-enhanced liver is normal in size, contour, and attenuation. There is no intrahepatic or ductal dilatation. The hepatic veins and portal veins are patent. Gallbladder: Contracted. Spleen: The spleen is mildly enlarged measuring 15.5 cm in length. Pancreas: Mildly atrophic and grossly unremarkable. Adrenal glands: Unremarkable. Kidneys: There is asymmetric cortical atrophy of the left kidney as compared to the right. No hydronephrosis is seen. The kidneys enhance symmetrically. A small nonobstructing calculus is seen in the left upper pole. A 1.4 cm cyst is noted in the right lower pole. Abdominal vasculature: The abdominal aorta is normal in course and caliber. Bowel: The small bowel and colon are normal in course and caliber. The appendix is well-visualized and normal. Peritoneum: There is a 7.6 x 6.4 x 6.4 cm mass lesion present within the central mesentery on image #223. No peritoneal free air is seen. There is trace free fluid in the upper abdomen. Lymphadenopathy: There is no upper abdominal, retroperitoneal, pelvic sidewall, or inguinal lymphadenopathy. Pelvic viscera: The bladder, prostate, and seminal vesicles are normal as visualized. Skeletal structures: There are numerous osteolytic lesions seen throughout the lumbar sacral spine and bony pelvis. There is no evidence of pathologic fracture. There is a healed left pubic ring fracture. No lytic or blastic lesions are seen. IMPRESSION: 1. There are findings of multifocal pneumonia, left lung greater than right. 2. There are small pleural effusions. 3. 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 There is no evidence of pathologic fracture. 4. There is a 7.6 cm soft tissue mass present within the central mesentery. The appearance is consistent with neoplasm, and likely related to the reported history of multiple myeloma. 5. Mild splenomegaly. 6. Trace free fluid is seen in the upper abdomen. 7. There is marked and asymmetric cortical atrophy of the left kidney as compared to the right. A punctate nonobstructing left renal calculus is noted. 8. Cardiomegaly with a small to moderate pericardial effusion. 9. Additional findings as above. Electronically signed by: Daniel Alcantara M.D. 04/19/2018 11:30 AM Dictated Date/Time: 04/19/2018 10:54 AM
--- NOTE | 2018-04-19 14:40 | Progress Note ---
Subjective Date of Service: Apr 19, 2018. Subjective Pt evaluation today including: conversation w/ patient, physical exam, chart review, lab review still not feeling well. some cough today, non productive. tolerating abx. appetite poor, ct abd with mass c/w myeloma. also with infiltrate left lung. blood cultures negative. isolated fever last night, now afebrile. some sweats overnight. no n/v/abd pain. c diff negative x 2. Problem List Medical Problems: (1) Bilateral pleural effusion Status: Acute (2) Congestive heart failure Status: Acute (3) Elevated troponin Status: Acute (4) Elevated troponin Status: Acute (5) Hyperglycemia Status: Acute (6) Immunocompromised state Status: Acute (7) Precordial chest pain Status: Acute (8) Tachy-jasper syndrome Status: Acute (9) Thrombocytopenia Status: Acute Objective Vital Signs Date Time Temp Pulse Resp B/P (MAP) Pulse Ox O2 Delivery O2 Flow Rate FiO2 04/19/18 11:45 36.8 116 18 121/73 (89) 97 04/19/18 10:00 Room Air 04/19/18 07:26 36.6 102 16 116/77 (90) 99 04/19/18 04:21 36.7 100 20 117/65 (82) 99 CPAP 04/19/18 00:36 36.9 83 04/19/18 00:00 CPAP 04/18/18 23:38 38.0 133 20 100/61 (74) 95 CPAP 04/18/18 19:07 37.4 76 18 102/63 (76) 97 Room Air 04/18/18 17:07 Room Air CPAP 04/18/18 14:54 36.9 20 116/73 (87) 97 Room Air Physical Exam General Appearance: WD/WN, no apparent distress Eyes: normal inspection, EOMI Neck: supple Respiratory/Chest: lungs clear, normal breath sounds, no respiratory distress, + decreased breath sounds Cardiovascular: regular rate, rhythm, no murmur Abdomen: non tender, soft Extremities: non-tender, no pedal edema Neurologic/Psychiatric: alert, oriented x 3 Skin: normal color Laboratory Results Item Value Date Time Blood Culture - Preliminary Resulted 04/17/18 0435 Blood NO GROWTH TO DATE. Blood Culture - Preliminary Resulted 04/17/18 0438 Blood NO GROWTH TO DATE. C.difficile Toxin B Gene (PCR) - Final Complete 04/17/18 0625 Stool No C. difficile toxin B gene detected C.difficile Toxin B Gene (PCR) - Final Complete 04/19/18 1140 Stool No C. difficile toxin B gene detected Last 24 Hours Test 04/19/18 05:29 White Blood Count 7.16 K/uL Red Blood Count 3.82 M/uL Hemoglobin 12.5 g/dL Hematocrit 36.2 % Mean Corpuscular Volume 94.8 fL Mean Corpuscular Hemoglobin 32.7 pg Mean Corpuscular Hemoglobin Concent 34.5 g/dl Platelet Count 151 K/uL Mean Platelet Volume 11.5 fL Neutrophils (%) (Auto) 81.0 % Lymphocytes (%) (Auto) 9.2 % Monocytes (%) (Auto) 7.7 % Eosinophils (%) (Auto) 1.7 % Basophils (%) (Auto) 0.1 % Neutrophils # (Auto) 5.80 K/uL Lymphocytes # (Auto) 0.66 K/uL Monocytes # (Auto) 0.55 K/uL Eosinophils # (Auto) 0.12 K/uL Basophils # (Auto) 0.01 K/uL RDW Standard Deviation 43.8 fL RDW Coefficient of Variation 12.7 % Immature Granulocyte % (Auto) 0.3 % Immature Granulocyte # (Auto) 0.02 K/uL Prothrombin Time 21.4 SECONDS Prothromb Time International Ratio 2.1 Creatinine 1.35 mg/dl Est Creatinine Clear Calc Drug Dose 79.5 ml/min Estimated GFR () 71.4 Estimated GFR (Non- 61.6 Vancomycin Level Trough 9.3 mcg/ml Assessment and Plan (1) PNA (pneumonia) Assessment & Plan: continue abx. follow cultures negative to date. cough nonproductive, doubt he will be able to provide sputum sample. Continued [facility] stay due to: fever Discharge planning: home
[2018-04-19] MEDS: LEVALBUTEROL 1.25MG/0.5ML NEB INH SCH ×2 (14:44→19:07)
[2018-04-19] MEDS: IPRATROPIUM BROMIDE NEB SOLN 0.02% 2.5 ML VIAL INH SCH ×2 (14:45→19:07)
[2018-04-19] MEDS ORDERED: LEVALBUTEROL/IPRATROPIUM NEB INH SCH (15:00)
[2018-04-19] MEDS: WARFARIN SOD 2.5 MG TAB PO SCH (15:46)
--- NOTE | 2018-04-19 16:31 | Progress Note ---
Subjective Date of Service: Apr 19, 2018. Subjective Pt evaluation today including: conversation w/ patient, conversation w/ family , physical exam, lab review, review of studies, conversation w/ moving consultant, review of inpatient medication list Pain: no pain PO Intake: adequate Voiding: no voiding problems reviewed vitals, patient had a fever at midnight, 38, had sweats, had to change sheets twice discussed with patient's at the bedside checked CT chest and a/p due to fevers, showed changes with multiple myeloma and multifocal pneumonia discussed with Dr. Rodriges over the phone, myeloma does not cause fevers discussed with Dr. Dasilva, source of fever is pneumonia, will continue abx and observe further HR elevated in the afternoon, is in atrial fibrillation, h/o of this, likely up due to levalbuterol Problem List Medical Problems: (1) Bilateral pleural effusion Status: Acute (2) Congestive heart failure Status: Acute (3) Elevated troponin Status: Acute (4) Elevated troponin Status: Acute (5) Hyperglycemia Status: Acute (6) Immunocompromised state Status: Acute (7) Precordial chest pain Status: Acute (8) Tachy-jasper syndrome Status: Acute (9) Thrombocytopenia Status: Acute Review of Systems Constitutional: + fever, + chills, + sweats Respiratory: + cough Cardiac: + chest pain (associated with cough) All Other Systems: Reviewed and Negative Medications Current Inpatient Medications Medications (Trade) Dose Ordered Sig/Garcia Route Start Time Stop Time Status Last Admin Dose Admin Acetaminophen (Tylenol Tab) 650 mg Q4H PRN PO 04/17/18 06:15 05/17/18 06:14 04/18/18 23:31 650 MG Al Hydrox/Mg Hydrox/Simethicone (Maalox Max Susp) 15 ml Q4H PRN PO 04/17/18 06:15 05/17/18 06:14 Magnesium Hydroxide (Milk Of Magnesia Susp) 30 ml Q6H PRN PO 04/17/18 06:15 05/17/18 06:14 Polyethylene (Miralax Powder Packet) 17 gm DAILY PRN PO 04/17/18 06:30 05/17/18 06:29 Zolpidem Tartrate (Ambien Tab) 5 mg HSZ PRN PO 04/17/18 06:15 05/17/18 06:14 Ondansetron HCl (Zofran Inj) 4 mg Q6H PRN IV 04/17/18 06:15 05/17/18 06:14 Piperacillin Sod/ Tazobactam Sod 3.375 gm/Dextrose 115 ml @ 28.75 mls/ hr Q8H IV 04/17/18 10:00 05/01/18 11:59 04/19/18 09:56 28.75 MLS/HR Miscellaneous Information (Consult) 1 ea UD PRN N/A 04/17/18 06:15 05/17/18 06:14 Acyclovir (Zovirax Tab) 400 mg BID PO 04/17/18 08:00 04/27/18 08:59 04/19/18 08:13 400 MG Albuterol (Ventolin Hfa Inhaler) 2 puffs Q4 PRN INH 04/17/18 06:15 05/17/18 06:14 04/19/18 05:43 2 PUFFS Bumetanide (Bumex Tab) 2 mg QAM PO 04/17/18 08:00 05/17/18 08:59 04/19/18 08:14 2 MG Dronedarone (Multaq Tab) 400 mg BID PO 04/17/18 08:00 05/17/18 08:59 04/19/18 08:15 400 MG Escitalopram Oxalate (Lexapro Tab) 10 mg DAILY PO 04/17/18 08:00 05/17/18 08:59 04/19/18 08:13 10 MG Metoprolol Tartrate (Lopressor Tab) 12.5 mg BID PO 04/17/18 08:00 05/17/18 08:59 04/19/18 08:14 12.5 MG Pantoprazole Sodium (Protonix Tab) 40 mg DAILY PRN PO 04/17/18 06:15 05/17/18 06:14 Potassium Chloride (Klor-Con M10) 10 meq BID17 PO 04/17/18 09:00 05/17/18 08:59 04/19/18 08:15 10 MEQ Miscellaneous Information (Order Awaiting Action) 1 ea QS N/A 04/17/18 08:00 05/17/18 07:59 Warfarin Sodium (Coumadin Tab) 2.5 mg DAILY@1600 PO 04/17/18 16:00 05/17/18 15:59 04/19/18 15:46 2.5 MG Azithromycin (Zithromax Tab) 500 mg QAM PO 04/18/18 08:00 04/25/18 07:59 04/19/18 08:14 500 MG Cholestyramine Resin (Questran Powder Light) 4 gm BID@10,22 PO 04/18/18 22:00 05/18/18 21:59 04/19/18 09:56 4 GM Loperamide HCl (Imodium Cap) 2 mg Q6 PRN PO 04/18/18 16:30 05/18/18 16:29 04/18/18 17:24 2 MG Lactobacillus Acidophilus (Floranex Tab) 4 tab TIDM PO 04/18/18 17:00 05/18/18 16:59 04/19/18 12:21 4 TAB Potassium Chloride/Sodium Chloride 1,000 ml @ 125 mls/hr Q8H IV 04/19/18 10:00 04/19/18 17:59 04/19/18 10:27 125 MLS/HR Ioversol (Optiray 320) 100 ml UD PRN IV 04/19/18 09:30 04/23/18 09:29 Ipratropium [place] (Atrovent 0.02% 0.5MG/2.5ML Neb) 0.5 mg Q6R INH 04/19/18 15:00 05/19/18 14:59 04/19/18 14:45 0.5 MG Levalbuterol (Xopenex 1.25MG/ 0.5ML Neb) 1.25 mg Q6R INH 04/19/18 15:00 05/19/18 14:59 04/19/18 14:44 1.25 MG Objective Vital Signs Date Time Temp Pulse Resp B/P (MAP) Pulse Ox O2 Delivery O2 Flow Rate FiO2 04/19/18 15:26 36.8 136 17 93/60 (71) 98 Room Air 04/19/18 14:45 76 14 98 Room Air 04/19/18 11:45 36.8 116 18 121/73 (89) 97 04/19/18 10:00 Room Air 04/19/18 07:26 36.6 102 16 116/77 (90) 99 04/19/18 04:21 36.7 100 20 117/65 (82) 99 CPAP 04/19/18 00:36 36.9 83 04/19/18 00:00 CPAP 04/18/18 23:38 38.0 133 20 100/61 (74) 95 CPAP 04/18/18 19:07 37.4 76 18 102/63 (76) 97 Room Air 04/18/18 17:07 Room Air CPAP Physical Exam General Appearance: WD/WN, no apparent distress Eyes: normal inspection, EOMI, sclerae normal ENT: normal ENT inspection, hearing grossly normal, pharynx normal Neck: supple, no adenopathy, no JVD, trachea midline Respiratory/Chest: chest non-tender, lungs clear, normal breath sounds, no respiratory distress, no accessory muscle use Cardiovascular: regular rate, rhythm, no edema, no gallop, no JVD, no murmur Abdomen: normal bowel sounds, non tender, soft, no organomegaly Extremities: normal range of motion, non-tender, normal inspection, no pedal edema, no calf tenderness, pelvis stable Neurologic/Psychiatric: safe technician II-XII nml as tested, no motor/sensory deficits, alert, normal mood/affect, oriented x 3 Skin: normal color, warm/dry, no rash Laboratory Results Last 24 Hours Test 04/19/18 05:29 White Blood Count 7.16 K/uL Red Blood Count 3.82 M/uL Hemoglobin 12.5 g/dL Hematocrit 36.2 % Mean Corpuscular Volume 94.8 fL Mean Corpuscular Hemoglobin 32.7 pg Mean Corpuscular Hemoglobin Concent 34.5 g/dl Platelet Count 151 K/uL Mean Platelet Volume 11.5 fL Neutrophils (%) (Auto) 81.0 % Lymphocytes (%) (Auto) 9.2 % Monocytes (%) (Auto) 7.7 % Eosinophils (%) (Auto) 1.7 % Basophils (%) (Auto) 0.1 % Neutrophils # (Auto) 5.80 K/uL Lymphocytes # (Auto) 0.66 K/uL Monocytes # (Auto) 0.55 K/uL Eosinophils # (Auto) 0.12 K/uL Basophils # (Auto) 0.01 K/uL RDW Standard Deviation 43.8 fL RDW Coefficient of Variation 12.7 % Immature Granulocyte % (Auto) 0.3 % Immature Granulocyte # (Auto) 0.02 K/uL Prothrombin Time 21.4 SECONDS Prothromb Time International Ratio 2.1 Creatinine 1.35 mg/dl Est Creatinine Clear Calc Drug Dose 79.5 ml/min Estimated GFR () 71.4 Estimated GFR (Non- 61.6 Vancomycin Level Trough 9.3 mcg/ml Assessment and Plan 47 y/o M Hx multiple myeloma, amyloidosis, grade II diastolic dysfunction, paroxysmal AF, DEBBY, CKD II. Multiple admissions in 2018 for volume overload. Presents with intermittent fevers for 4 days. He was initially evaluated at [facility] for the fever and was sent home after blood cultures returned negative. He was not placed on antibiotics. He denies a productive cough, N/V, or dysuria. He does have chronic diarrhea A fever of 39.5 was confirmed on arrival to the ER. Initial labs are notable for a low K, low Mg and protein malnutrition. Renal function is at baseline. Fever - multifocal pneumonia on CT chest - Blood cultures negative to date, C diff negative x 2, stool cultures negative - Zosyn/Vanc/Zithro initiated on admission, stopped Vanco since MRSA was negative - Tylenol PRN - fever at midnight last night, 38, had sweats, temperature not as high as prior fevers - CT chest shows multifocal pneumonia, patchy - per ID, continue antibiotics and observe Chronic Diastolic CHF/Restrictive Disease/Amyloidosis: Appears Euvolemic - Continue Bumex 2 mg daily, no signs of volume overload Paroxysmal Atrial Fibrillation/Flutter: - Does have elevated rates with temperature increases - therapeutic INR - Dronedarone 400 mg BID and Lopressor 12.5 mg BID - Coumadin 2.5 mg daily and trend INR, 2.1 today, will repeat tomorrow CKD Stage II: STABLE - Baseline Cr 1.6-1.7 and will continue to monitor, stable today at 1.34 Anemia: STABLE - Will continue to monitor - no signs of acute bleed Multiple Myeloma: STABLE - Continue F/U as outpatient, sees oncology here at [facility] - MM does not cause fevers per oncology DVT Prophylaxis: Coumadin Code Status: FULL Continued [facility] stay due to: fever Discharge planning: home
[2018-04-19] MEDS: ACETAMINOPHEN 325 MG TAB PO PRN (22:15)
[2018-04-20] VITALS (8 sets, daily range): BP systolic 99–134; BP diastolic 52–87; PULSE 61–96; TEMP 36.5–36.9; O2SAT 96–100; BMI 33.7
[2018-04-20] MEDS: LEVALBUTEROL 1.25MG/0.5ML NEB INH SCH ×4 (01:39→19:18)
[2018-04-20] MEDS: IPRATROPIUM BROMIDE NEB SOLN 0.02% 2.5 ML VIAL INH SCH ×4 (01:39→19:18)
[2018-04-20] MEDS: PIPERACILL/TAZOBAC IV 3.375 GM in DEXTROSE 5% 100ML 100 ML IV SCH ×3 (02:08→17:34)
[2018-04-20 06:04] LABS: INR 2.9 (0.9-1.1)
[2018-04-20 06:27] LABS: CREATININE 1.41 mg/dl (0.60-1.40)
[2018-04-20] MEDS: DRONEDARONE 400 MG TAB PO SCH ×2 (07:35→21:49)
[2018-04-20] MEDS: ACYCLOVIR 400 MG TAB PO SCH ×2 (07:36→21:50)
[2018-04-20] MEDS: METOPROLOL TARTRATE 25 MG TAB PO SCH ×2 (07:36→21:50)
[2018-04-20] MEDS: POTASSIUM CHLORIDE 10 MEQ TABCR PO SCH ×2 (07:36→15:51)
[2018-04-20] MEDS: BUMETANIDE 1 MG TAB PO SCH (07:36)
[2018-04-20] MEDS: LACTOBACILLUS ACIDOPHILUS (FLORANEX) TAB PO SCH ×3 (07:36→15:51)
[2018-04-20] MEDS: ESCITALOPRAM OXALATE 10 MG TAB PO SCH (07:36)
[2018-04-20] MEDS: AZITHROMYCIN 250 MG TAB PO SCH (07:37)
[2018-04-20] MEDS: CHOLESTYRAMINE LIGHT 4 GM PKT PO SCH ×2 (10:00→21:51)
--- NOTE | 2018-04-20 13:46 | DIAGNOSTIC IMAGING REPORT ---
GALLBLADDER-ABD LIMITED CLINICAL HISTORY: RUQ pain, fever, nausea/vomiting fever. Nausea. TECHNIQUE: Ultrasound COMPARISON STUDY: 12/09/2014 FINDINGS: Considerable gallbladder wall thickening. This includes a component of edematous change with gallbladder wall measuring up to 9 mm. No shadowing gallstones. Heterogeneous fatty infiltration of the liver. Pancreas is unremarkable. Right kidney is negative for hydronephrosis. Common bile duct is approximately 4 mm. IMPRESSION: Thickened edematous gallbladder wall at 9 mm. Trace ascites. Normal caliber bile ducts. Fatty infiltration of the liver. The above report was generated using voice recognition software. It may contain grammatical, syntax or spelling errors. Electronically signed by: Tim Reynolds M.D. 04/20/2018 1:45 PM Dictated Date/Time: 04/20/2018 1:36 PM
--- NOTE | 2018-04-20 14:48 | Progress Note ---
Subjective Date of Service: Apr 20, 2018. Subjective Pt evaluation today including: conversation w/ patient, physical exam, chart review, lab review pt seen in followup, no cough today and breathing is improved but now with ruq pain, ultrasound done, gb thick/edema. afebrile. cultures negative. still poor appetite, no n/v, eating jello. all remaining ros reviewed and are negative. Problem List Medical Problems: (1) Bilateral pleural effusion Status: Acute (2) Congestive heart failure Status: Acute (3) Elevated troponin Status: Acute (4) Elevated troponin Status: Acute (5) Hyperglycemia Status: Acute (6) Immunocompromised state Status: Acute (7) Precordial chest pain Status: Acute (8) Tachy-jasper syndrome Status: Acute (9) Thrombocytopenia Status: Acute Objective Vital Signs Date Time Temp Pulse Resp B/P (MAP) Pulse Ox O2 Delivery O2 Flow Rate FiO2 04/20/18 14:15 68 14 96 Room Air 04/20/18 11:14 36.5 72 18 101/67 (78) 98 Room Air 04/20/18 08:17 Room Air 04/20/18 07:16 36.6 70 18 134/87 (103) 100 Room Air 04/20/18 07:09 96 14 100 Room Air 04/20/18 04:00 36.5 61 20 106/69 (81) 98 CPAP 04/20/18 00:00 Room Air 04/19/18 23:28 37.4 74 20 107/71 (83) 96 Room Air 04/19/18 19:09 71 14 99 Room Air 04/19/18 19:02 37.0 122 20 104/65 (78) 98 04/19/18 16:10 Room Air 04/19/18 15:26 36.8 136 17 93/60 (71) 98 Room Air Physical Exam General Appearance: WD/WN, no apparent distress Eyes: normal inspection, EOMI Neck: supple Respiratory/Chest: lungs clear, normal breath sounds, no respiratory distress Cardiovascular: regular rate, rhythm, no edema Abdomen: non tender, soft Extremities: non-tender, no pedal edema Neurologic/Psychiatric: alert, oriented x 3 Skin: normal color Laboratory Results Item Value Date Time Blood Culture - Preliminary Resulted 04/17/18 0435 Blood NO GROWTH TO DATE. Blood Culture - Preliminary Resulted 04/17/18 0438 Blood NO GROWTH TO DATE. C.difficile Toxin B Gene (PCR) - Final Complete 04/19/18 1140 Stool No C. difficile toxin B gene detected Last 24 Hours Test 04/20/18 05:33 Prothrombin Time 29.4 SECONDS Prothromb Time International Ratio 2.9 Creatinine 1.41 mg/dl Est Creatinine Clear Calc Drug Dose 75.9 ml/min Estimated GFR () 67.8 Estimated GFR (Non- 58.5 Assessment and Plan (1) PNA (pneumonia) Assessment & Plan: continue abx. ? cholecystitis. Continued [facility] stay due to: fever Discharge planning: home
[2018-04-20] MEDS: WARFARIN SOD 2.5 MG TAB PO SCH (15:50)
--- NOTE | 2018-04-20 21:54 | DIAGNOSTIC IMAGING REPORT ---
NUCLEAR HEPATOBILIARY SCAN CLINICAL HISTORY: Nausea and vomiting. Fever. Right upper quadrant abdominal pain. COMPARISON STUDY: Abdominal ultrasound dated 04/20/2018. Abdominal CT dated 04/19/2018. TECHNIQUE: Dynamic images of the liver and anterior abdomen were obtained every 5 minutes for a total of 60 minutes following the IV administration of 5.67mCi of technetium 99m Choletec. FINDINGS: The hepatobiliary scan shows prompt and homogeneous hepatic uptake. There is visualized activity within the intra and extrahepatic biliary tree at 15 minutes, and within the gallbladder at 15 minutes. There is normal biliary to bowel transit, with small bowel visualized by 40 minutes. IMPRESSION: Normal hepatobiliary scan. There is no scintigraphic evidence of cholecystitis. Electronically signed by: Daniel Alcantara M.D. 04/20/2018 9:52 PM Dictated Date/Time: 04/20/2018 9:51 PM
--- NOTE | 2018-04-20 21:55 | Progress Note ---
Subjective Date of Service: Apr 20, 2018. Subjective Pt evaluation today including: conversation w/ patient, conversation w/ family , physical exam, lab review, review of studies, conversation w/ automotive consultant, review of inpatient medication list Pain: RUQ pain and vomiting PO Intake: poor, vomiting, new symptom Voiding: no voiding problems patient c/o RUQ pain and nausea this morning, new symptoms for him still with diarrhea, less frequent RUQ tender on exam which was new finding no fever for over 36 hours LFT normal, WBC normal checked RUQ US, no stones seen, CBD normal, 9mm thickening of gall bladder wall checked HIDA scan, not officially read buy on my view the gall bladder fills adequately, no signs of duct obstruction discussed with Dr. Dasilva Problem List Medical Problems: (1) Bilateral pleural effusion Status: Acute (2) Congestive heart failure Status: Acute (3) Elevated troponin Status: Acute (4) Elevated troponin Status: Acute (5) Hyperglycemia Status: Acute (6) Immunocompromised state Status: Acute (7) Precordial chest pain Status: Acute (8) Tachy-jasper syndrome Status: Acute (9) Thrombocytopenia Status: Acute Review of Systems Abdomen: + pain (RUQ), + nausea, + vomiting, + diarrhea All Other Systems: Reviewed and Negative Medications Current Inpatient Medications Medications (Trade) Dose Ordered Sig/Garcia Route Start Time Stop Time Status Last Admin Dose Admin Acetaminophen (Tylenol Tab) 650 mg Q4H PRN PO 04/17/18 06:15 05/17/18 06:14 04/19/18 22:15 650 MG Al Hydrox/Mg Hydrox/Simethicone (Maalox Max Susp) 15 ml Q4H PRN PO 04/17/18 06:15 05/17/18 06:14 04/19/18 23:23 15 ML Magnesium Hydroxide (Milk Of Magnesia Susp) 30 ml Q6H PRN PO 04/17/18 06:15 05/17/18 06:14 Polyethylene (Miralax Powder Packet) 17 gm DAILY PRN PO 04/17/18 06:30 05/17/18 06:29 Zolpidem Tartrate (Ambien Tab) 5 mg HSZ PRN PO 04/17/18 06:15 05/17/18 06:14 Ondansetron HCl (Zofran Inj) 4 mg Q6H PRN IV 04/17/18 06:15 9/5/18 06:14 04/20/18 10:21 4 MG Piperacillin Sod/ Tazobactam Sod 3.375 gm/Dextrose 115 ml @ 28.75 mls/ hr Q8H IV 04/17/18 10:00 05/01/18 11:59 04/20/18 17:34 28.75 MLS/HR Miscellaneous Information (Consult) 1 ea UD PRN N/A 04/17/18 06:15 05/17/18 06:14 Acyclovir (Zovirax Tab) 400 mg BID PO 04/17/18 08:00 04/27/18 08:59 04/20/18 07:36 400 MG Albuterol (Ventolin Hfa Inhaler) 2 puffs Q4 PRN INH 04/17/18 06:15 05/17/18 06:14 04/19/18 05:43 2 PUFFS Bumetanide (Bumex Tab) 2 mg QAM PO 04/17/18 08:00 05/17/18 08:59 04/20/18 07:36 2 MG Dronedarone (Multaq Tab) 400 mg BID PO 04/17/18 08:00 05/17/18 08:59 04/20/18 07:35 400 MG Escitalopram Oxalate (Lexapro Tab) 10 mg DAILY PO 04/17/18 08:00 05/17/18 08:59 04/20/18 07:36 10 MG Metoprolol Tartrate (Lopressor Tab) 12.5 mg BID PO 04/17/18 08:00 05/17/18 08:59 04/20/18 07:36 12.5 MG Pantoprazole Sodium (Protonix Tab) 40 mg DAILY PRN PO 04/17/18 06:15 05/17/18 06:14 Potassium Chloride (Klor-Con M10) 10 meq BID17 PO 04/17/18 09:00 05/17/18 08:59 04/20/18 15:51 10 MEQ Miscellaneous Information (Order Awaiting Action) 1 ea QS N/A 04/17/18 08:00 05/17/18 07:59 Warfarin Sodium (Coumadin Tab) 2.5 mg DAILY@1600 PO 04/17/18 16:00 05/17/18 15:59 04/20/18 15:50 2.5 MG Azithromycin (Zithromax Tab) 500 mg QAM PO 04/18/18 08:00 04/25/18 07:59 04/20/18 07:37 500 MG Cholestyramine Resin (Questran Powder Light) 4 gm BID@10,22 PO 04/18/18 22:00 05/18/18 21:59 04/19/18 09:56 4 GM Loperamide HCl (Imodium Cap) 2 mg Q6 PRN PO 04/18/18 16:30 05/18/18 16:29 04/18/18 17:24 2 MG Lactobacillus Acidophilus (Floranex Tab) 4 tab TIDM PO 04/18/18 17:00 05/18/18 16:59 04/20/18 15:51 4 TAB Ioversol (Optiray 320) 100 ml UD PRN IV 04/19/18 09:30 04/23/18 09:29 Ipratropium [place] (Atrovent 0.02% 0.5MG/2.5ML Neb) 0.5 mg Q6R INH 04/19/18 15:00 05/19/18 14:59 04/20/18 19:18 0.5 MG Levalbuterol (Xopenex 1.25MG/ 0.5ML Neb) 1.25 mg Q6R INH 04/19/18 15:00 05/19/18 14:59 04/20/18 19:18 1.25 MG Objective Vital Signs Date Time Temp Pulse Resp B/P (MAP) Pulse Ox O2 Delivery O2 Flow Rate FiO2 04/20/18 20:01 36.8 75 18 118/74 (89) 98 Room Air 04/20/18 19:19 74 16 98 Room Air 04/20/18 16:10 Room Air 04/20/18 15:16 36.9 78 18 99/52 (68) 100 Room Air 04/20/18 14:15 68 14 96 Room Air 04/20/18 11:14 36.5 72 18 101/67 (78) 98 Room Air 04/20/18 08:17 Room Air 04/20/18 07:16 36.6 70 18 134/87 (103) 100 Room Air 04/20/18 07:09 96 14 100 Room Air 04/20/18 04:00 36.5 61 20 106/69 (81) 98 CPAP 04/20/18 00:00 Room Air 04/19/18 23:28 37.4 74 20 107/71 (83) 96 Room Air Physical Exam General Appearance: WD/WN, no apparent distress Eyes: normal inspection, EOMI, sclerae normal ENT: normal ENT inspection, hearing grossly normal, pharynx normal Neck: supple, no adenopathy, no JVD, trachea midline Respiratory/Chest: chest non-tender, lungs clear, normal breath sounds, no respiratory distress, no accessory muscle use Cardiovascular: no edema, no gallop, no JVD, no murmur, + irregularly irregular Abdomen: normal bowel sounds, soft, no organomegaly, + tenderness (RUQ) Extremities: normal range of motion, non-tender, normal inspection, no pedal edema, no calf tenderness Neurologic/Psychiatric: manager consumer insights II-XII nml as tested, no motor/sensory deficits, alert, normal mood/affect, oriented x 3 Skin: normal color, warm/dry, no rash Laboratory Results Last 24 Hours Test 04/20/18 05:33 Prothrombin Time 29.4 SECONDS Prothromb Time International Ratio 2.9 Creatinine 1.41 mg/dl Est Creatinine Clear Calc Drug Dose 75.9 ml/min Estimated GFR () 67.8 Estimated GFR (Non- 58.5 Assessment and Plan 47 y/o M Hx multiple myeloma, amyloidosis, grade II diastolic dysfunction, paroxysmal AF, DEBBY, CKD II. Multiple admissions in 2018 for volume overload. Presents with intermittent fevers for 4 days. He was initially evaluated at [facility] for the fever and was sent home after blood cultures returned negative. He was not placed on antibiotics. He denies a productive cough, N/V, or dysuria. He does have chronic diarrhea A fever of 39.5 was confirmed on arrival to the ER. Initial labs are notable for a low K, low Mg and protein malnutrition. Renal function is at baseline. Fever - multifocal pneumonia on CT chest - Blood cultures negative to date, C diff negative x 2, stool cultures negative - Zosyn/Vanc/Zithro initiated on admission, stopped Vanco since MRSA was negative - Tylenol PRN - no fever or night sweats for 36 hours, midnight tonight would be 48 hours which would be an improvement - CT chest shows multifocal pneumonia, patchy RUQ pain, nausea and vomiting unclear etiology, LFT normal, WBC normal RUQ US with some GB wall thickening HIDA scan does not appear to show cholecystitis, will wait for official read consider GI consultation tomorrow if symptoms persist Chronic Diastolic CHF/Restrictive Disease/Amyloidosis: Appears Euvolemic - Continue Bumex 2 mg daily, no signs of volume overload Paroxysmal Atrial Fibrillation/Flutter: - Does have elevated rates with temperature increases - therapeutic INR - Dronedarone 400 mg BID and Lopressor 12.5 mg BID - Coumadin 2.5 mg daily CKD Stage II: STABLE - Baseline Cr 1.6-1.7 and will continue to monitor Anemia: STABLE - Will continue to monitor - no signs of acute bleed Multiple Myeloma: STABLE - Continue F/U as outpatient, sees oncology here at [facility] - MM does not cause fevers per oncology DVT Prophylaxis: Coumadin Code Status: FULL Continued [facility] stay due to: fever Discharge planning: home
[2018-04-21] VITALS (8 sets, daily range): BP systolic 95–116; BP diastolic 57–75; PULSE 67–78; TEMP 36.7–37; O2SAT 95–98; Ht 175.3 cm; Wt 103.4 kg
[2018-04-21] MEDS: LEVALBUTEROL 1.25MG/0.5ML NEB INH SCH ×2 (01:48→07:02)
[2018-04-21] MEDS: IPRATROPIUM BROMIDE NEB SOLN 0.02% 2.5 ML VIAL INH SCH ×2 (01:48→07:02)
[2018-04-21] MEDS: PIPERACILL/TAZOBAC IV 3.375 GM in DEXTROSE 5% 100ML 100 ML IV SCH ×2 (02:03→11:30)
[2018-04-21] MEDS: DRONEDARONE 400 MG TAB PO SCH (08:07)
[2018-04-21] MEDS: METOPROLOL TARTRATE 25 MG TAB PO SCH (08:07)
[2018-04-21] MEDS: LACTOBACILLUS ACIDOPHILUS (FLORANEX) TAB PO SCH ×2 (08:07→12:20)
[2018-04-21] MEDS: BUMETANIDE 1 MG TAB PO SCH (08:08)
[2018-04-21] MEDS: ESCITALOPRAM OXALATE 10 MG TAB PO SCH (08:08)
[2018-04-21] MEDS: AZITHROMYCIN 250 MG TAB PO SCH (08:08)
[2018-04-21] MEDS: POTASSIUM CHLORIDE 10 MEQ TABCR PO SCH (08:08)
[2018-04-21] MEDS: ACYCLOVIR 400 MG TAB PO SCH (08:08)
[2018-04-21] MEDS: CHOLESTYRAMINE LIGHT 4 GM PKT PO SCH (10:43)
--- NOTE | 2018-04-21 11:41 | Progress Note ---
Subjective Date of Service: Apr 21, 2018. Subjective pt resting comfortably, remains afebrile. tolerating abx cultures negative hida negative. Problem List Medical Problems: (1) Bilateral pleural effusion Status: Acute (2) Congestive heart failure Status: Acute (3) Elevated troponin Status: Acute (4) Elevated troponin Status: Acute (5) Hyperglycemia Status: Acute (6) Immunocompromised state Status: Acute (7) Precordial chest pain Status: Acute (8) Tachy-jasper syndrome Status: Acute (9) Thrombocytopenia Status: Acute Objective Vital Signs Date Time Temp Pulse Resp B/P (MAP) Pulse Ox O2 Delivery O2 Flow Rate FiO2 04/21/18 11:32 36.8 67 18 116/75 (89) 98 Room Air 04/21/18 10:45 36.8 73 18 98 Room Air 04/21/18 08:49 Room Air 04/21/18 07:22 36.8 73 18 116/68 (84) 98 BiPAP 04/21/18 07:04 73 14 98 Room Air 04/21/18 04:11 36.7 68 18 110/73 (85) 96 CPAP 04/21/18 00:05 37.0 74 18 107/62 (77) 97 Room Air 04/21/18 00:00 Room Air 04/20/18 20:01 36.8 75 18 118/74 (89) 98 Room Air 04/20/18 19:19 74 16 98 Room Air 04/20/18 16:10 Room Air 04/20/18 15:16 36.9 78 18 99/52 (68) 100 Room Air 04/20/18 14:15 68 14 96 Room Air Physical Exam General Appearance: WD/WN, no apparent distress Eyes: normal inspection Neck: supple Respiratory/Chest: normal breath sounds, no respiratory distress Extremities: no pedal edema Neurologic/Psychiatric: alert Skin: normal color Laboratory Results Item Value Date Time Blood Culture - Preliminary Resulted 04/17/18 0438 Blood NO GROWTH TO DATE. Blood Culture - Preliminary Resulted 04/17/18 0435 Blood NO GROWTH TO DATE. Assessment and Plan (1) PNA (pneumonia) Assessment & Plan: can stop after 7 days therapy. if d/c home stop zosyn, continue azithro Continued [facility] stay due to: fever Discharge planning: home
[2018-04-21] MEDS ORDERED: IMD2X PO (14:44)
[2018-04-21] MEDS ORDERED: AZIT-57 PO (14:44)
--- NOTE | 2018-04-21 14:51 | Discharge Instructions ---
Discharge Instructions Date of Service Apr 21, 2018. Admission Reason for Admission: Fever due to multifocal pneumonia Discharge Discharge Diagnosis / Problem: Multifocal pneumonia, nuasea/vomiting and abdominal pain Discharge Goals Goal(s): Decrease discomfort, Improve function Activity Recommendations Activity Limitations: resume your previous activity . Instructions / Follow-Up Instructions / Follow-Up Medications: - AZITHROMYCIN: 500mg daily x 3 more days, next dose due tomorrow morning - IMODIUM: use as needed for diarrhea Fever, night sweats CT chest showed multifocal pneumonia both left and right lobes, consistent with atypical pneumonia showed improvement after starting on Azithromycin, first started on 04/18 no fever now for well over 48 hours should complete 3 more days of Azithromycin work up failed to show any other etiology of the fever, no UTI, no abdominal source discussed with Dr. Rodriges, multiple myeloma would not cause fever reviewed amyloidosis, would not cause these symptoms Right upper quadrant abdominal pain and nausea/vomiting unclear cause but getting better liver enzymes were normal, normal WBC gall bladder ultrasound showed some thickened gall bladder azul, but no stones, no signs of infection HIDA scan was negative for cholecystitis appears to be self limiting Diarrhea: negative for C diff infection twice, stool cultures negative continue to stay well hydrated, use Imodium as needed FOLLOW UP - Dr. Quan next week, call for appointment - Dr. Rodriges, follow up for next treatment for MM, however, would call the office first to let them know you had pneumonia, see if they want to delay treatment Current Hospital Diet Patient's current hospital diet: AHA Diet (Heart Healthy) Discharge Diet Recommended Diet: AHA Diet (Heart Healthy) Pending Studies Studies pending at discharge: no Medical Emergencies . Who to Call and When: Medical Emergencies: If at any time you feel your situation is an emergency, please call 911 immediately. . Non-Emergent Contact Non-Emergency issues call your: Primary Care Provider, Oncologist Call Non-Emergent contact if: you have a fever, you have any medication questions . . "Provider Documentation" section prepared by Eddie Pa. . [place] Drug Monitoring Program Search Results: no issues identified
[2018-04-21] MEDS ORDERED: IPRATROPIUM BROMIDE HFA INHALER INH SCH (18:00)
[2018-04-21] MEDS ORDERED: LEValbuterol HFA 15GM INHALER INH SCH (18:00)
--- NOTE | 2018-04-25 11:42 | Discharge Summary ---
Discharge Summary Date of Service Apr 21, 2018. Discharge Summary Admission Date: Apr 17, 2018 at 06:10 Discharge Date: Apr 21, 2018 Discharge Disposition: Home Principal Diagnosis: Multifocal pneumonia Problems/Secondary Diagnoses: RUQ pain, vomiting, diarrhea Multiple Myeloma Chronic atrial fibrillation Amyloidosis Immunizations: Have You Had Influenza Vaccine: Unknown History of Tetanus Vaccine?: Yes History of Pneumococcal: No History of Hepatitis B Vaccine: No Procedures: none Consultations: Infectious disease Medication Reconciliation New Medications: Azithromycin (Azithromycin) 250 Mg Tab 500 MG PO QAM for 3 Days, #6 TAB 0 Refills Loperamide Hcl (Imodium) 2 Mg Cap 2 MG PO Q6 PRN for Diarrhea, #30 CAP 0 Refills Continued Medications: Acyclovir (Acyclovir) 400 Mg Tab 1 TAB PO BID, 3 Refills Albuterol Hfa (Ventolin Hfa) 200 Puffs/33810 Mcg Aers 2 PUFFS INH Q4 PRN for Cough, #1 INHALER Bortezomib (Velcade) 1 Mg/Ml Inj 1 DOSE INJ WK wednesdays Bumetanide (Bumetanide) 1 Mg Tab 2 MG PO QAM Dronedarone Hcl (Multaq) 400 Mg Tab 400 MG PO BID, 1 Refill Escitalopram (Lexapro) 10 Mg Tab 10 MG PO DAILY, TAB Metoprolol Tartrate (Lopressor) (Lopressor) 25 Mg Tab 12.5 MG PO BID, 1 Refill Pantoprazole (Pantoprazole Sodium) 40 Mg Tab 40 MG PO DAILY PRN for Indigestion Potassium Chloride Microencaps (Potassium Chloride Er) 20 Meq Tab 10 MEQ PO BID Prednisone (Prednisone) 20 Mg Tab 20 MG PO UD daily on day 1 & 2 after chemo Warfarin Sod (Coumadin) 2.5 Mg Tab 2.5 MG PO DAILY, TAB [duratumumad] () 1 DOSE IV q3 weeks Discharge Exam Patient feeling better on day of discharge, able to tolerate regular diet, no nausea or vomiting. Diarrhea much improved. No fevers for almost 60 hours. Reviewed HIDA scan, no evidence of cholecystitis. Unclear why he had RUQ pain and vomiting the day prior. Reviewed amyloidosis symptoms, nothing that would align with his current symptoms. Patient was feeling well enough to go home, felt ready to go home. Review of Systems: Constitutional: No fever, No chills, No sweats, No weight loss, No weakness , No fatigue, No problem reported Eyes: No worsening of vision, No eye pain, No redness, No discharge, No diplopia, No problem reported ENT: No hearing loss, No unusual epistaxis, No nasal symptoms, No sore throat, No tinnitus, No dental problems, No trouble swallowing, No problem reported Respiratory: + cough, No sputum, No wheezing, No shortness of breath, No dyspnea on exertion, No dyspnea at rest, No hemoptysis, No problem reported Cardiovascular: No chest pain, No orthopnea, No PND, No edema, No claudication, No palpitations, No problem reported Abdomen: + diarrhea, No pain, No nausea, No vomiting, No constipation, No GI bleeding, No problem reported Musculoskeletal: No joint pain, No muscle pain, No swelling, No calf pain, No problem reported Genitourinary - Male: No hematuria, No dysuria, No urinary frequency, No urinary urgency Neurologic: No memory loss, No paralysis, No weakness, No numbness/tingling , No vertigo, No balance problems, No problem reported Psychiatric: No depression symptoms, No anhedonism, No anxiety, No insomnia , No substance abuse, No problem reported Endocrine: No fatigue, No excessive thirst, No excessive urination, No problem reported Hematologic / Lymphatic: No abnormal bleeding/bruising, No clotting problems , No swollen lymph nodes, No night sweats, No problem reported Integumentary: No rash, No itch, No new/changing skin lesions, No color change, No bleeding, No problem reported Physical Exam: General Appearance: WD/WN, no apparent distress Eyes: normal inspection, EOMI, sclerae normal ENT: normal ENT inspection, hearing grossly normal, pharynx normal Neck: supple, no adenopathy, no JVD, trachea midline Respiratory/Chest: chest non-tender, lungs clear, normal breath sounds, no respiratory distress, no accessory muscle use Cardiovascular: no edema, no gallop, no JVD, no murmur, normal peripheral pulses, + irregularly irregular Abdomen / GI: normal bowel sounds, non tender, soft, no organomegaly Extremities: normal inspection, no calf tenderness, normal capillary refill , no pedal edema, normal range of motion, pelvis stable Neurologic/Psychiatric: gear straightener II-XII nml as tested, no motor/sensory deficits , alert, normal mood/affect, normal reflexes, oriented x 3 Skin: normal color, warm/dry, no rash Hospital Course 47 y/o M Hx multiple myeloma, amyloidosis, grade II diastolic dysfunction, paroxysmal AF, DEBBY, CKD II. Multiple admissions in 2018 for volume overload. Presents with intermittent fevers for 4 days. He was initially evaluated at [facility] for the fever and was sent home after blood cultures returned negative. He was not placed on antibiotics. He denies a productive cough, N/V, or dysuria. He does have chronic diarrhea A fever of 39.5 was confirmed on arrival to the ER. Initial labs are notable for a low K, low Mg and protein malnutrition. Renal function is at baseline. Fever - multifocal pneumonia on CT chest - Blood cultures negative to date, C diff negative x 2, stool cultures negative - Zosyn/Vanc/Zithro initiated on admission, stopped Vanco since MRSA was negative - Tylenol PRN - no fever or night sweats for nearly 60 hours - CT chest shows multifocal pneumonia, patchy - per ID, will d/c on Zithromax for a few more days, follow up with PCP RUQ pain, nausea and vomiting unclear etiology, LFT normal, WBC normal RUQ US with some GB wall thickening HIDA scan does not show cholecystitis symptoms resolved spontaneously, eating regular consistency food on discharge Chronic Diastolic CHF/Restrictive Disease/Amyloidosis: Appears Euvolemic - Continue Bumex 2 mg daily, no signs of volume overload Paroxysmal Atrial Fibrillation/Flutter: - Does have elevated rates with temperature increases - therapeutic INR - Dronedarone 400 mg BID and Lopressor 12.5 mg BID - Coumadin 2.5 mg daily CKD Stage II: STABLE - Baseline Cr 1.6-1.7, Cr was 1.4 on discharge Anemia: STABLE - Will continue to monitor - no signs of acute bleed Multiple Myeloma: STABLE - Continue F/U as outpatient, sees oncology here at [facility] - MM does not cause fevers per oncology DVT Prophylaxis: Coumadin Code Status: FULL Total Time Spent: Greater than 30 minutes This includes examination of the patient, discharge planning, medication reconciliation, and communication with other providers. Discharge Instructions Please refer to the electronic Patient Visit Report (Discharge Instructions) for additional information. Follow-Up Dr. Quan in one week Dr. Rodriges as previously scheduled for chemo for MM Additional Copies To Rosalio Rodriges D.O.; Jc Quan M.D.
== END 2018-04-21 15:50 | disposition home or self-care (01) | DRG 194 ==
LOC: C.EDB 04:11 → C.4E 06:10 → ENRESERV 06:54
PROVIDERS: ADMIT Internal Medicine; ATTEND Internal Medicine
DX: J18.9 Pneumonia, unspecified organism (principal); I50.32 Chronic diastolic (congestive) heart failure; E85.4 Organ-limited amyloidosis; I43 Cardiomyopathy in diseases classified elsewhere; K21.9 Gastro-esophageal reflux disease without esophagitis; E46 Unspecified protein-calorie malnutrition; Z94.84 Stem cells transplant status; I12.9 Hypertensive chronic kidney disease with stage 1 through stage 4 chronic kidney disease, or unspecified chronic kidney disease; C90.00 Multiple myeloma not having achieved remission; Z79.01 Long term (current) use of anticoagulants; I48.0 Paroxysmal atrial fibrillation; G47.33 Obstructive sleep apnea (adult) (pediatric); N18.2 Chronic kidney disease, stage 2 (mild); Z79.52 Long term (current) use of systemic steroids

== ENCOUNTER 2018-12-24 15:00 | Inpatient (IN) ==
[2018-12-24] MEDS ORDERED: ALBUT/IPRATROP 3MG/0.5MG NEB 3 ML VIAL NEB STA (15:34)
[2018-12-24 16:11] LABS: Eosinophils % (auto) 1.4 %; Hematocrit (blood only) 38.4 % (42-52); Hemoglobin 13.5 g/dL (14.0-18.0); Immature Granulocytes # (auto) 0.02 K/uL (0.00-0.02); Immature Granulocytes % (auto) 0.3 %; Lymphocytes # (auto) 0.23 K/uL (1.2-3.4); Lymphocytes % (auto) 3.2 %; Mean Corpuscular Hgb Conc 35.2 g/dL (32-36); Mean Corpuscular Volume 94.6 fL (80-100); Mean Platelet Volume 11.6 fL (7.4-10.4); Monocytes # (auto) 0.49 K/uL (0.11-0.59); Monocytes % (auto) 6.8 %; Neutrophils # (auto) 6.41 K/uL (1.4-6.5); Neutrophils % (auto) 88.3 %; Platelet Count 101 K/uL (130-400); RDW Coefficient of Variation 14.1 % (11.5-14.5); Red Blood Count 4.06 M/uL (4.7-6.1); White Blood Count 7.25 K/uL (4.8-10.8)
[2018-12-24 16:30] LABS: INR 2.5 (0.9-1.1); Prothrombin Time 23.8 Seconds (9.0-12.0)
--- NOTE | 2018-12-24 16:34 | XRay Report ---
XR chest 2V routine CLINICAL HISTORY: sob, fever dyspnea COMPARISON STUDY: 07/07/2018 FINDINGS: Mild stable cardia megaly. Poorly defined parenchymal infiltrative process right mid and lo wer lung region. No region of consolidation. Lungs otherwise appear clear. IMPRESSION: Patchy parenchymal infiltrate right mid and lower lung. The above report was generated using voice recognition software. It may contain grammatical, syntax or spelling errors. Electronically signed by: Tim Reynolds M.D. 12/24/2018 4:33 PM
[2018-12-24 16:53] LABS: Albumin Globulin Ratio 0.9 (0.9-2); Albumin Level 2.9 gm/dl (3.4-5.0); Bilirubin,Total 0.3 mg/dl (0.2-1); Calcium 8.6 mg/dl (8.5-10.1); Creatinine Clr Calc Pharmacy 79.7 ml/min; Est GFR (African American) 71.4; Est GFR (Non-African American) 61.6; Globulin 3.2 gm/dl (2.5-4.0); Magnesium 1.6 mg/dl (1.8-2.4); Potassium 3.4 mmol/L (3.5-5.1); Total Protein 6.1 gm/dl (6.4-8.2); Troponin I 0.024 ng/ml (0-0.045)
[2018-12-24] MEDS ORDERED: cefTRIAXone SODIUM 1,000 MG in DEXTROSE 5% 50 ML IV SCH (17:00)
[2018-12-24] MEDS ORDERED: cefTRIAXone SODIUM 1,000 MG/50 ML BAG IV STA (17:30)
[2018-12-24] MEDS ORDERED: AZITHROMYCIN 250 MG TAB PO ONE (17:30)
--- NOTE | 2018-12-24 17:40 | Emergency Department Note ---
Entered by Rubens Barrios acting as a scribe for Antoinette Gil DO History of Present Illness General Chief complaint: Flu Like Symptoms Stated complaint: pneumonia - going through chemo Time Seen by Provider: 12/24/18 15:13 Source: patient History of Present Illness Onset (ago): week(s) (worsening in past few days) 3 Location: chest (lungs) Pain Consistency: + other (worsening) Quality: + other (shortness of breath) Exacerbated By: + other (exertion, lying on side) Associated symptoms: + cough (with blood), + fever/chills (max 103, improved with Tylenol) and + other (denies vomiting); no chest pain The patient is a 48 year old male currently receiving chemotherapy for multiple myeloma who presents to the Emergency Room with complaints of worsening shortness of breath. The patient reports that he first developed a productive cough and cold symptoms three weeks ago. For the past three days he has had intermittent fevers and coughing up blood. He states that his highest fever was 103 last night, and it was improved to 99.7 after Tylenol. He reports watery diarrhea beginning yesterday without blood. The patient notes that his symptoms are worsened with exertion and lying on his side. He states that he used breathing treatments last night and this morning. He denies chest pain, pain with breathing, or vomiting. He reports that he is following Dr. Harkins office for his multiple myeloma. He states that he has had it since 2013, it went into remission for two years, and it is now returning. He also reports a history of amyloidosis and states that he had five separate cases of pneumonia last year. He notes that he once required drainage of fluid around the lungs after broken ribs a few years ago, but he has not required drainage since that time. He states that he received a flu shot this year and is unsure if he has received a pneumonia shot. He notes that he has been taking amoxicillin for the past three days. He reports that he takes Coumadin, and his last INR was 2.7. Home Medications Home Medications Medication Instructions Recorded Confirmed Type Darzalex 1 dose IV DIRECTED #0 04/17/18 12/24/18 History Multaq 400 mg PO BID 05/16/18 12/24/18 History Velcade 1 dose SUBCUT WK 05/16/18 12/24/18 History acyclovir 400 mg PO BID 05/16/18 12/24/18 History albuterol sulfate [Ventolin HFA] 2 puff INHALATION Q4H PRN 05/16/18 12/24/18 History escitalopram oxalate [Lexapro] 10 mg PO DAILY 05/16/18 12/24/18 History bumetanide 1 mg tablet 2 mg PO DAILY tab 05/17/18 12/24/18 History potassium chloride ER 20 mEq 10 meq PO Q12 tab 05/17/18 12/24/18 History tablet,extended release prednisone 20 mg tablet 20 mg PO DIRECTED 06/07/18 12/24/18 History immune glob,gamma(IgG) 5 IV .[id number] ea 09/20/18 11/22/18 History wgqd-eef-vnno-IgA 0 to 50 mcg/mL IV solution zoledronic acid 4 mg/5 mL IV .[id number] ml 09/20/18 11/22/18 History intravenous solution warfarin 2.5 mg tablet 2.5 mg PO QPM #30 tab 11/22/18 12/24/18 Rx Allergies Allergy/AdvReac Type Severity Reaction Status Date / Time No Known Allergies Allergy Verified 12/24/18 17:12 Past Med/Surg History Medical History Chronic diastolic CHF (congestive heart failure) Paroxysmal atrial fibrillation Multiple myeloma (Acute) dx 2013; follows with Dr. 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 Mother No problems noted. Social History Communication Ability: Effective Beliefs That Will Affect Care: None marital status details: twice - 3 children in total between the 2 marriages Current Living Situation: Spouse Current Living Situation Comment: lives in [place] current occupational status: disabled current occupation: previously worked at [employer] Feels Safe at Home: Yes Safety Concerns: Feels Safe At This Time Smoking Status: Never smoker Hx Alcohol Use: No Hx Substance Use: No Review of Systems See HPI for pertinent positives & negatives. and A total of 10 systems reviewed and were otherwise negative Physical Exam Vital Signs Vital Signs - 24 hr 12/25/18 02:28 12/25/18 07:24 12/25/18 07:53 Temperature 36.8 C Temperature Source Oral Pulse Rate [Apical] 70 Pulse Rate [Finger] Respiratory Rate 18 Respiratory Effort / Characteristics SOB on Exertion Non-Labored Spontaneous Respiratory Depth Normal Normal Respiratory Pattern Regular Regular Blood Pressure [Left Arm] Blood Pressure [Right Arm] 124/83 Blood Pressure Mean [Left Arm] Blood Pressure Mean [Right Arm] 96 Blood Pressure Position [Left Arm] Blood Pressure Position [Right Arm] Sitting Pulse Oximetry 99 Oxygen Delivery Method Room Air Room Air Room Air 12/25/18 15:40 12/25/18 15:56 12/25/18 19:13 Temperature 37.2 C Temperature Source Oral Pulse Rate [Apical] Pulse Rate [Finger] 73 76 Respiratory Rate 18 16 Respiratory Effort / Characteristics Non-Labored Spontaneous Non-Labored Spontaneous Respiratory Depth Normal Respiratory Pattern Regular Blood Pressure [Left Arm] 114/75 Blood Pressure [Right Arm] Blood Pressure Mean [Left Arm] 88 Blood Pressure Mean [Right Arm] Blood Pressure Position [Left Arm] Sitting Blood Pressure Position [Right Arm] Pulse Oximetry 97 95 Oxygen Delivery Method Room Air Room Air Room Air 12/25/18 23:00 12/25/18 23:35 Temperature 36.6 C Temperature Source Oral Pulse Rate [Apical] Pulse Rate [Finger] 70 Respiratory Rate 18 Respiratory Effort / Characteristics Non-Labored Spontaneous Respiratory Depth Normal Respiratory Pattern Regular Blood Pressure [Left Arm] 120/73 Blood Pressure [Right Arm] Blood Pressure Mean [Left Arm] 88 Blood Pressure Mean [Right Arm] Blood Pressure Position [Left Arm] Lying Blood Pressure Position [Right Arm] Pulse Oximetry 96 Oxygen Delivery Method Room Air Room Air CPAP GENERAL: alert, well appearing, well nourished, no distress, non-toxic EYE EXAM: normal conjunctiva, PERRL and EOM's grossly intact OROPHARYNX: no exudate, no erythema, lips, buccal mucosa, and tongue normal and mucous membranes are moist NECK: supple, no nuchal rigidity, no adenopathy, non-tender LUNGS: Coarse breath sounds bilaterally, rales at the right base. Normal chest wall mechanics HEART: no murmurs, S1 normal and S2 normal ABDOMEN: abdomen soft, non-tender, normo-active bowel sounds, no masses, no rebound or guarding. BACK: Back is symmetrical on inspection and there is no deformity, no midline t enderness, no CVA tenderness. SKIN: no rashes and no bruising UPPER EXTREMITIES: upper extremities are grossly normal. FROM, nml pulses b/l. LOWER EXTREMITIES: No pitting edema. FROM, nml pulses b/l. NEURO EXAM: Normal sensorium, cranial nerves II-XII grossly intact, normal speech, no gross weakness of arms, no gross weakness of legs. Gross sensation intact. Course 1521: The patient was evaluated in room C5, and a complete history and physical examination were performed. 1728: I consulted Dr. Rodriges Oncology. He states that the patient can be treated as community-acquired pneumonia, and he feels the patient should be admitted. 1732: I updated the patient on current results and plan. He is agreeable to hospitalization. 1736: I consulted Dr. Skaggs [facility] Hospitalist. The patient will be reevaluated for hospitalization. 1915: Case discussed with Dr. Vivar who will take over for Dr. Skaggs as the hospitalist and evaluate the patient. Consultations Consultation #1: I consulted Dr. Rodriges Oncology. He states that the patient can be treated as community-acquired pneumonia, and he feels the patient should be admitted. Time: 17:28 Consultation #2: I consulted Dr. Skaggs [facility] Hospitalist. The patient will be reevaluated for hospitalization. Time: 17:36 Administered Medications Acyclovir (Zovirax) 400 mg PO BID [facility] Stop: 01/23/19 23:28 Last Admin: 12/25/18 20:40 Dose: 400 mg Documented by: [id number] Admin: 12/25/18 10:55 Dose: 400 mg Documented by: [id number] Admin: 12/25/18 00:25 Dose: 400 mg Documented by: [id number] Albuterol (Ventolin Hfa) 2 puffs INH Q4H PRN PRN Reason: Cough Stop: 01/23/19 23:28 Last Admin: 12/25/18 12:20 Dose: 2 puffs Documented by: [id number] Albuterol (Duoneb) 3 ml NEB QIDR PRN PRN Reason: Shortness Of Breath Or Wheezing Stop: 01/24/19 19:59 Last Admin: 12/25/18 19:11 Dose: 3 ml Documented by: [id number] Bumetanide (Bumex) 2 mg PO DAILY [facility] Stop: 01/24/19 08:59 Last Admin: 12/25/18 10:55 Dose: 2 mg Documented by: [id number] Dronedarone (Multaq) 400 mg PO BID [facility] Stop: 01/23/19 23:28 Last Admin: 12/25/18 20:40 Dose: 400 mg Documented by: [id number] Admin: 12/25/18 10:54 Dose: 400 mg Documented by: [id number] Admin: 12/25/18 00:26 Dose: 400 mg Documented by: [id number] Escitalopram Oxalate (Lexapro) 10 mg PO DAILY [facility] Stop: 01/24/19 08:59 Last Admin: 12/25/18 10:54 Dose: 10 mg Documented by: [id number] Guaifenesin (Mucinex) 1,200 mg PO Q12 [facility] Stop: 01/24/19 08:59 Last Admin: 12/25/18 20:40 Dose: 1,200 mg Documented by: [id number] Admin: 12/25/18 10:55 Dose: 1,200 mg Documented by: [id number] Azithromycin 250 mg/ Dextrose 252.5 mls @ 125 mls/hr IV Q24H [facility] Stop: 01/01/19 17:59 Last Infusion: 12/25/18 19:42 Dose: 0 mls/hr Documented by: [id number] Admin: 12/25/18 17:24 Dose: 125 mls/hr Documented by: [id number] Ceftriaxone Sodium 2,000 mg/ (Dextrose) 70 mls @ 100 mls/hr IV Q24H [facility]; Protocol Stop: 01/01/19 16:59 Last Infusion: 12/25/18 17:15 Dose: 0 mls/hr Documented by: [id number] Admin: 12/25/18 16:21 Dose: 100 mls/hr Documented by: [id number] Ondansetron HCl (Zofran) 4 mg IV Q6H PRN PRN Reason: Nausea Stop: 01/23/19 23:28 Last Admin: 12/25/18 22:22 Dose: 4 mg Documented by: [id number] Potassium Chloride (Klor-Con M20) 10 meq PO Q12 JOSE Stop: 01/24/19 08:59 Last Admin: 12/25/18 20:41 Dose: 10 meq Documented by: [id number] Admin: 12/25/18 10:56 Dose: 10 meq Documented by: [id number] Warfarin Sodium (Coumadin) 2.5 mg PO QPM JOSE Stop: 01/24/19 20:59 Last Admin: 12/25/18 20:40 Dose: 2.5 mg Documented by: [id number] Discontinued Medications Albuterol (Duoneb) 3 ml NEB NOW STA Stop: 12/24/18 15:35 Last Admin: 12/24/18 16:05 Dose: 3 ml Documented by: [id number] Azithromycin (Zithromax) 500 mg PO NOW ONE Stop: 12/24/18 17:31 Last Admin: 12/24/18 17:53 Dose: 500 mg Documented by: [id number] Ceftriaxone Sodium (Rocephin) 1,000 mg in 50 mls @ 100 mls/hr IV NOW STA Stop: 12/24/18 17:59 Last Infusion: 12/24/18 18:24 Dose: 0 mls/hr Documented by: [id number] Admin: 12/24/18 17:53 Dose: 100 mls/hr Documented by: [id number] Acetaminophen (Ofirmev) 1,000 mg in 100 mls @ 400 mls/hr IV NOW STA Stop: 12/24/18 18:40 Last Infusion: 12/24/18 18:55 Dose: 0 mls/hr Documented by: [id number] Admin: 12/24/18 18:30 Dose: 400 mls/hr Documented by: [id number] Sodium Chloride (Nss 1000ml) 1,000 mls @ 100 mls/hr IV .Q10H JOSE Stop: 12/25/18 19:59 Last Infusion: 12/25/18 22:25 Dose: 0 mls/hr Documented by: [id number] Admin: 12/25/18 11:01 Dose: 100 mls/hr Documented by: [id number] Infusion: 12/25/18 10:25 Dose: 100 mls/hr Documented by: [id number] Admin: 12/25/18 00:25 Dose: 100 mls/hr Documented by: [id number] Magnesium Sulfate/Dextrose (Magnesium Sulfate / D5w) 1 gm in 100 mls @ 100 mls/hr IV ONE ONE Stop: 12/25/18 05:29 Last Infusion: 12/25/18 06:31 Dose: 0 mls/hr Documented by: [id number] Admin: 12/25/18 05:05 Dose: 100 mls/hr Documented by: [id number] Potassium Chloride (Klor-Con M20) 40 meq PO ONE ONE Stop: 12/25/18 04:31 Last Admin: 12/25/18 05:05 Dose: 40 meq Documented by: [id number] Warfarin Sodium (Coumadin) 2.5 mg PO ONE ONE Stop: 12/24/18 23:46 Last Admin: 12/25/18 00:26 Dose: 2.5 mg Documented by: [id number] Medical Decision Making Differential Diagnosis Differential diagnosis: Etiologies such as infections, reactive airway disease, pneumonia, pneumothorax, COPD, CHF, cardiac ischemia, pulmonary embolism, musculoskeletal, gastrointestinal, as well as others were entertained. Medical Records Attestation: I reviewed the patient's medical records. Home Medications Current Medication List: was personally reviewed by me Laboratory Data Attestation: I reviewed the patient's lab results. Result diagrams: 12/25/18 07:29 12/25/18 07:29 Lab Results 12/24/18 12/24/18 12/24/18 Range/Units 15:48 15:48 15:48 WBC 7.25 (4.8-10.8) K/uL RBC 4.06 L (4.7-6.1) M/uL Hgb 13.5 L (14.0-18.0) g/dL Hct 38.4 L (42-52) % MCV 94.6 (80-100) fL MCH 33.3 (25-34) pg MCHC 35.2 (32-36) g/dL RDW Std Deviation 49.0 H (36.4-46.3) fL RDW Coeff of Tobi 14.1 (11.5-14.5) % Plt Count 101 L (130-400) K/uL MPV 11.6 H (7.4-10.4) fL Immature Gran % (Auto) 0.3 % Neut % (Auto) 88.3 % Lymph % (Auto) 3.2 % [place] % (Auto) 6.8 % Eos % (Auto) 1.4 % Baso % (Auto) 0.0 % Immature Gran # (Auto) 0.02 (0.00-0.02) K/uL Neut # (Auto) 6.41 (1.4-6.5) K/uL Lymph # (Auto) 0.23 L (1.2-3.4) K/uL [place] # (Auto) 0.49 (0.11-0.59) K/uL Eos # (Auto) 0.10 (0-0.5) K/uL Baso # (Auto) 0.00 (0-0.2) K/uL PT 23.8 H (9.0-12.0) Seconds INR 2.5 H (0.9-1.1) Sodium 137 (136-145) mmol/L Potassium 3.4 L (3.5-5.1) mmol/L Chloride 104 (98-107) mmol/L Carbon Dioxide 26 (21-32) mmol/L Anion Gap 7.0 (3-11) BUN 18 (7-18) mg/dl Creatinine 1.35 (0.6-1.4) mg/dl Est Cr Clr Drug Dosing 79.7 ml/min Est GFR ( Amer) 71.4 Est GFR (Non-Af Amer) 61.6 BUN/Creatinine Ratio 13.0 (10-20) Glucose 127 H (70-99) mg/dl POC Lactic Acid Marcio (0.90-1.70) mmol/L Calcium 8.6 (8.5-10.1) mg/dl Phosphorus 3.5 (2.5-4.9) mg/dl Magnesium 1.6 L (1.8-2.4) mg/dl Total Bilirubin 0.3 (0.2-1) mg/dl AST 15 (15-37) U/L ALT 42 (12-78) U/L Alkaline Phosphatase 84 (45-117) U/L Troponin I 0.024 (0-0.045) ng/ml NT-Pro-B Natriuret Pep 1383 H (0-450) pg/ml Total Protein 6.1 L (6.4-8.2) gm/dl Albumin 2.9 L (3.4-5.0) gm/dl Globulin 3.2 (2.5-4.0) gm/dl Albumin/Globulin Ratio 0.9 (0.9-2) Lipase 139 (73-393) U/L Procalcitonin (0-0.5) ng/ml TSH 1.440 (0.300-4.500) uIu/ml 12/24/18 12/24/18 12/25/18 Range/Units 15:55 16:01 07:29 WBC 5.77 (4.8-10.8) K/uL RBC 4.26 L (4.7-6.1) M/uL Hgb 14.3 (14.0-18.0) g/dL Hct 41.2 L (42-52) % MCV 96.7 (80-100) fL MCH 33.6 (25-34) pg MCHC 34.7 (32-36) g/dL RDW Std Deviation 50.3 H (36.4-46.3) fL RDW Coeff of Tobi 14.2 (11.5-14.5) % Plt Count 109 L (130-400) K/uL MPV 11.5 H (7.4-10.4) fL Immature Gran % (Auto) 0.2 % Neut % (Auto) 85.1 % Lymph % (Auto) 8.1 % [place] % (Auto) 4.3 % Eos % (Auto) 2.1 % Baso % (Auto) 0.2 % Immature Gran # (Auto) 0.01 (0.00-0.02) K/uL Neut # (Auto) 4.91 (1.4-6.5) K/uL Lymph # (Auto) 0.47 L (1.2-3.4) K/uL [place] # (Auto) 0.25 (0.11-0.59) K/uL Eos # (Auto) 0.12 (0-0.5) K/uL Baso # (Auto) 0.01 (0-0.2) K/uL PT (9.0-12.0) Seconds INR (0.9-1.1) Sodium (136-145) mmol/L Potassium (3.5-5.1) mmol/L Chloride (98-107) mmol/L Carbon Dioxide (21-32) mmol/L Anion Gap (3-11) BUN (7-18) mg/dl Creatinine (0.6-1.4) mg/dl Est Cr Clr Drug Dosing ml/min Est GFR ( Amer) Est GFR (Non-Af Amer) BUN/Creatinine Ratio (10-20) Glucose (70-99) mg/dl POC Lactic Acid Marcio 1.62 (0.90-1.70) mmol/L Calcium (8.5-10.1) mg/dl Phosphorus (2.5-4.9) mg/dl Magnesium (1.8-2.4) mg/dl Total Bilirubin (0.2-1) mg/dl AST (15-37) U/L ALT (12-78) U/L Alkaline Phosphatase (45-117) U/L Troponin I (0-0.045) ng/ml NT-Pro-B Natriuret Pep (0-450) pg/ml Total Protein (6.4-8.2) gm/dl Albumin (3.4-5.0) gm/dl Globulin (2.5-4.0) gm/dl Albumin/Globulin Ratio (0.9-2) Lipase (73-393) U/L Procalcitonin 0.12 (0-0.5) ng/ml TSH (0.300-4.500) uIu/ml 12/25/18 Range/Units 07:29 WBC (4.8-10.8) K/uL RBC (4.7-6.1) M/uL Hgb (14.0-18.0) g/dL Hct (42-52) % MCV (80-100) fL MCH (25-34) pg MCHC (32-36) g/dL RDW Std Deviation (36.4-46.3) fL RDW Coeff of Tobi (11.5-14.5) % Plt Count (130-400) K/uL MPV (7.4-10.4) fL Immature Gran % (Auto) % Neut % (Auto) % Lymph % (Auto) % [place] % (Auto) % Eos % (Auto) % Baso % (Auto) % Immature Gran # (Auto) (0.00-0.02) K/uL Neut # (Auto) (1.4-6.5) K/uL Lymph # (Auto) (1.2-3.4) K/uL [place] # (Auto) (0.11-0.59) K/uL Eos # (Auto) (0-0.5) K/uL Baso # (Auto) (0-0.2) K/uL PT (9.0-12.0) Seconds INR (0.9-1.1) Sodium 138 (136-145) mmol/L Potassium 3.6 (3.5-5.1) mmol/L Chloride 103 (98-107) mmol/L Carbon Dioxide 28 (21-32) mmol/L Anion Gap 7.0 (3-11) BUN 15 (7-18) mg/dl Creatinine 1.32 (0.6-1.4) mg/dl Est Cr Clr Drug Dosing 81.0 ml/min Est GFR ( Amer) 73.4 Est GFR (Non-Af Amer) 63.3 BUN/Creatinine Ratio 11.4 (10-20) Glucose 153 H (70-99) mg/dl POC Lactic Acid Marcio (0.90-1.70) mmol/L Calcium 8.7 (8.5-10.1) mg/dl Phosphorus (2.5-4.9) mg/dl Magnesium (1.8-2.4) mg/dl Total Bilirubin (0.2-1) mg/dl AST (15-37) U/L ALT (12-78) U/L Alkaline Phosphatase (45-117) U/L Troponin I (0-0.045) ng/ml NT-Pro-B Natriuret Pep (0-450) pg/ml Total Protein (6.4-8.2) gm/dl Albumin (3.4-5.0) gm/dl Globulin (2.5-4.0) gm/dl Albumin/Globulin Ratio (0.9-2) Lipase (73-393) U/L Procalcitonin (0-0.5) ng/ml TSH (0.300-4.500) uIu/ml Imaging Data Radiologist's Impression: Radiology results as stated below per my review and the radiologist's interpretation: XR chest 2V routine CLINICAL HISTORY: sob, fever dyspnea COMPARISON STUDY: 07/07/2018 FINDINGS: Mild stable cardia megaly. Poorly defined parenchymal infiltrative process right mid and lower lung region. No region of consolidation. Lungs otherwise appear clear. IMPRESSION: Patchy parenchymal infiltrate right mid and lower lung. The above report was generated using voice recognition software. It may contain grammatical, syntax or spelling errors. Electronically signed by: Tim Reynolds M.D. 12/24/2018 4:33 PM ECG Data Attestation: I personally reviewed and interpreted this ECG as follows: Indication: SOB/dyspnea Rate (beats per minute): 78 Rhythm: sinus rhythm Findings: + other (normal axis, normal intervals) and + T-wave inversion (lead II, III, aVF, V5, V6); no PAC, no PVC and no ST elevation Comparison ECG Date: from (07/06/18) Change: no significant change Blood Pressure Blood Pressure Findings: Normal blood pressure Blood Pressure Disposition: did not require urgent referral MDM Narrative Patient with concerning story for likely evolving respiratory infection and found to have a multilobar pneumonia on chest x-ray. Patient hemodynamically stable down here, did feel improved with nasal cannula in place. Patient was noted to have dyspnea with exertion upon ambulation to the bathroom. No evidence of bacteremia/sepsis. Concern given extensive pneumonia and patient's current treatment for multiple myeloma. I discussed all results with patient at bedside and he was in agreement with plan as discussed with Dr. Rodriges over the phone. Discussed with hospitalist for additional evaluation and management. Impression & Plan Pneumonia, Multiple myeloma, Dyspnea Discharge Plan Visit Data *Final* Discharge Date/Time: 12/24/18 22:41 Chief Complaint: Flu Like Symptoms Stated Complaint: pneumonia - going through chemo ED Provider: Antoinette Gil Discharge Problem: Pneumonia, Multiple myeloma, Dyspnea Patient Disposition: Admitted As Inpatient Discharge Instructions Interventions: ED Discharge Assessment Last Done: 12/24/18 22:41 Discharge Problem: Pneumonia Qualifiers: Pneumonia type: due to unspecified organism Laterality: right Lung location: middle lobe of lung Qualified Code(s): J18.1 - Lobar pneumonia, unspecified organism Multiple myeloma Qualifiers: Multiple myeloma remission status: not in remission Qualified Code(s): C90.00 - Multiple myeloma not having achieved remission Dyspnea Qualifiers: Dyspnea type: shortness of breath Qualified Code(s): R06.02 - Shortness of breath The scribe's documentation has been prepared under my direction and personally reviewed by me in its entirety. I confirm that the note above accurately reflects all work, treatment, procedures, and medical decision making performed by me.
[2018-12-24] MEDS ORDERED: ACETAMINOPHEN 1,000 MG/100 ML VIAL IV STA (18:26)
[2018-12-24] MEDS ORDERED: DOCUSATE SODIUM 100 MG CAP PO PRN (23:29)
[2018-12-24] MEDS ORDERED: POLYETHYLENE (MIRALAX) 17 GM PACK PO PRN (23:29)
[2018-12-24] MEDS ORDERED: ENOXAPARIN INJ 40 MG/0.4 ML SYR SQ SCH (23:29)
[2018-12-24] MEDS ORDERED: ACETAMINOPHEN 325 MG TAB PO PRN (23:29)
[2018-12-24] MEDS ORDERED: WARFARIN SOD 2.5 MG TAB PO ONE (23:45)
[2018-12-25 00:02] LABS: Phosphorus 3.5 mg/dl (2.5-4.9)
[2018-12-25] MEDS: SODIUM CHLORIDE 0.9% 1000ML 1,000 ML IV SCH ×2 (00:25→11:01)
[2018-12-25] MEDS: ACYCLOVIR 400 MG TAB PO SCH ×3 (00:25→20:40)
[2018-12-25] MEDS: DRONEDARONE HCL 400 MG TAB PO SCH ×3 (00:26→20:40)
--- NOTE | 2018-12-25 03:04 | History & Physical Report ---
Date of Service December 24, 2018 Assessment & Plan (1) Pneumonia: Patient febrile, productive cough with hemoptysis. CXR with suggestion of RML, RLL infiltrate. Patient presently afebrile, HD stable, no respiratory distress. No recent hospitalizations. -Admit to medical floor -Follow culture results, blood and sputum -Treatment for CAP with Ceftriaxone and Azithromycin -NSS at 100mL/hr x 2 L. 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 Careful monitoring of volume status - avoid volume contraction. -Incentive spirometry -Tylenol PRN fever -Bucinex BID -Albuterol HFA Present on Admission?: Yes (2) Hemoptysis: Patient reports a small amount of bloody sputum. INR=2.5, Twdheeqtw=220 -Continue to monitor -Check sputum culture Present on Admission?: Yes (3) Multiple myeloma: Patient on Chemotherapy. Follows with Dr. Rodriges. 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 He follows at [facility]. Patient appears slightly hypovolemic to euvolemic. -IVF as above in setting of acute infectious process -Continue home Bumex 2mg po daily -Monitor volume status Present on Admission?: Yes (5) Paroxysmal atrial fibrillation: Patient presently in NSR. Anticoagulated on Coumadin, INR=2.5 -Continue Multaq -Continue Coumadin -Continue to monitor Present on Admission?: Yes (6) Depression: Patient has been taking Lexapro since his diagnosis -Continue Lexapro (7) Hypertension: Blood pressure well controlled at present. -Continue Bumex -Continue to monitor F/E/N - NSS at 100mL/hr x 2 liters, monitor electrolytes and replete as needed, continue PO KCL, Regular diet as tolerated, Colace and Miralax PRN PPx - Anticoagulated on Coumadin Code - Full Dispo - 4W Present on Admission?: Yes History of Present Illness Chief Complaint: Pneumonia Primary Care Provider: Dariela Mathias MD Mr. Angeles is a 48yo male with history of MM and Amyloidosis with restrictive cardiomyopathy presenting with PNA. Patient reports having a head cold 3 weeks ago that then went to his chest. Two days ago he began experiencing fevers. Fevers have persisted - last one reported to be last night, 103, relieved with Advil. Also with cough productive for yellow sputum. Patient had a small amount of hemoptysis yesterday. He also reports KARIMI and shortness of breath with laying on his left side. He had had two days of watery diarrhea and dizziness as well. Denies CP/palpitations/abdominal pain/vomiting. Denies weight loss, night sweats. ER Course: Tylenol. Albuterol. Azithromycin. Ceftriaxone Allergies Allergy/AdvReac Type Severity Reaction Status Date / Time No Known Allergies Allergy Verified 12/24/18 17:12 Home Medications Home Medications Medication Instructions Recorded Confirmed Type Darzalex 1 dose IV DIRECTED #0 04/17/18 12/24/18 History Multaq 400 mg PO BID 05/16/18 12/24/18 History Velcade 1 dose SUBCUT WK 05/16/18 12/24/18 History acyclovir 400 mg PO BID 05/16/18 12/24/18 History albuterol sulfate [Ventolin HFA] 2 puff INHALATION Q4H PRN 05/16/18 12/24/18 History escitalopram oxalate [Lexapro] 10 mg PO DAILY 05/16/18 12/24/18 History bumetanide 1 mg tablet 2 mg PO DAILY tab 05/17/18 12/24/18 History potassium chloride ER 20 mEq 10 meq PO Q12 tab 05/17/18 12/24/18 History tablet,extended release prednisone 20 mg tablet 20 mg PO DIRECTED 06/07/18 12/24/18 History immune glob,gamma(IgG) 5 IV .[id number] ea 09/20/18 11/22/18 History yhqh-mwq-gmla-IgA 0 to 50 mcg/mL IV solution zoledronic acid 4 mg/5 mL IV .[id number] ml 09/20/18 11/22/18 History intravenous solution warfarin 2.5 mg tablet 2.5 mg PO QPM #30 tab 11/22/18 12/24/18 Rx Past Med/Surg History Medical History Chronic diastolic CHF (congestive heart failure) Paroxysmal atrial fibrillation Multiple myeloma (Acute) dx 2014; follows with Dr. 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 Mother No problems noted. Social History Preferred Language: Mozambican Communication Ability: Effective District Ranger Required: No Beliefs That Will Affect Care: None marital status details: twice - 3 children in total between the 2 marriages Current Living Situation: Spouse Current Living Situation Comment: lives in [place] current occupational status: disabled current occupation: previously worked at [employer] Feels Safe at Home: Yes Safety Concerns: Feels Safe At This Time Smoking Status: Never smoker Hx Alcohol Use: No Hx Substance Use: No Review of Systems All systems reviewed & are unremarkable except as noted in HPI & below Physical Exam Vital Signs (Past 24 Hours): Last Vital Signs Temp 36.9 C 12/25/18 00:33 Pulse 68 12/25/18 00:33 Resp 17 12/25/18 00:33 BP 117/80 12/25/18 00:33 Pulse Ox 96 12/25/18 00:33 Physical Exam: General: patient resting comfortably, NAD, non-toxic in appearance, AA&O x 4 Skin: warm, dry, intact, no rashes or lesions HEENT: NC/AT, PERRL, EOMI, anicteric sclera, conjunctiva without injection, external ear normal to inspection and nontender, nares patent, moist mucus membranes, dentition intact, no oropharyngeal lesions, neck supple, trachea midline, no LAD, no thyromegaly, no JVD Heart: +S1/S2, regular, no m/r/g Lungs: equal air entry bilaterally, crackles in right mid lung field and bilateral bases, R > L Abd: +BS, soft, NT/ND, no masses/organomegaly/ascites Ext: warm, 2+ pulses in UE/LE bilaterally, no clubbing/cyanosis or edema Neuro: nonfocal, patient AA&O x 4, speech intact, no facial droop, moving all extremities on command with equal strength 5/5 Results & Data Laboratory Results Lab Results 0412/24/18 12/24/18 Range/Units 15:48 15:48 15:48 WBC 7.25 (4.8-10.8) K/uL RBC 4.06 L (4.7-6.1) M/uL Hgb 13.5 L (14.0-18.0) g/dL Hct 38.4 L (42-52) % MCV 94.6 (80-100) fL MCH 33.3 (25-34) pg MCHC 35.2 (32-36) g/dL RDW Std Deviation 49.0 H (36.4-46.3) fL RDW Coeff of Tobi 14.1 (11.5-14.5) % Plt Count 101 L (130-400) K/uL MPV 11.6 H (7.4-10.4) fL Immature Gran % (Auto) 0.3 % Neut % (Auto) 88.3 % Lymph % (Auto) 3.2 % [place] % (Auto) 6.8 % Eos % (Auto) 1.4 % Baso % (Auto) 0.0 % Immature Gran # (Auto) 0.02 (0.00-0.02) K/uL Neut # (Auto) 6.41 (1.4-6.5) K/uL Lymph # (Auto) 0.23 L (1.2-3.4) K/uL [place] # (Auto) 0.49 (0.11-0.59) K/uL Eos # (Auto) 0.10 (0-0.5) K/uL Baso # (Auto) 0.00 (0-0.2) K/uL PT 23.8 H (9.0-12.0) Seconds INR 2.5 H (0.9-1.1) Sodium 137 (136-145) mmol/L Potassium 3.4 L (3.5-5.1) mmol/L Chloride 104 (98-107) mmol/L Carbon Dioxide 26 (21-32) mmol/L Anion Gap 7.0 (3-11) BUN 18 (7-18) mg/dl Creatinine 1.35 (0.6-1.4) mg/dl Est Cr Clr Drug Dosing 79.7 ml/min Est GFR ( Amer) 71.4 Est GFR (Non-Af Amer) 61.6 BUN/Creatinine Ratio 13.0 (10-20) Glucose 127 H (70-99) mg/dl POC Lactic Acid Marcio (0.90-1.70) mmol/L Calcium 8.6 (8.5-10.1) mg/dl Phosphorus 3.5 (2.5-4.9) mg/dl Magnesium 1.6 L (1.8-2.4) mg/dl Total Bilirubin 0.3 (0.2-1) mg/dl AST 15 (15-37) U/L ALT 42 (12-78) U/L Alkaline Phosphatase 84 (45-117) U/L Troponin I 0.024 (0-0.045) ng/ml NT-Pro-B Natriuret Pep 1383 H (0-450) pg/ml Total Protein 6.1 L (6.4-8.2) gm/dl Albumin 2.9 L (3.4-5.0) gm/dl Globulin 3.2 (2.5-4.0) gm/dl Albumin/Globulin Ratio 0.9 (0.9-2) Lipase 139 (73-393) U/L Procalcitonin (0-0.5) ng/ml TSH 1.440 (0.300-4.500) uIu/ml 12/24/18 12/24/18 Range/Units 15:55 16:01 WBC (4.8-10.8) K/uL RBC (4.7-6.1) M/uL Hgb (14.0-18.0) g/dL Hct (42-52) % MCV (80-100) fL MCH (25-34) pg MCHC (32-36) g/dL RDW Std Deviation (36.4-46.3) fL RDW Coeff of Tobi (11.5-14.5) % Plt Count (130-400) K/uL MPV (7.4-10.4) fL Immature Gran % (Auto) % Neut % (Auto) % Lymph % (Auto) % [place] % (Auto) % Eos % (Auto) % Baso % (Auto) % Immature Gran # (Auto) (0.00-0.02) K/uL Neut # (Auto) (1.4-6.5) K/uL Lymph # (Auto) (1.2-3.4) K/uL [place] # (Auto) (0.11-0.59) K/uL Eos # (Auto) (0-0.5) K/uL Baso # (Auto) (0-0.2) K/uL PT (9.0-12.0) Seconds INR (0.9-1.1) Sodium (136-145) mmol/L Potassium (3.5-5.1) mmol/L Chloride (98-107) mmol/L Carbon Dioxide (21-32) mmol/L Anion Gap (3-11) BUN (7-18) mg/dl Creatinine (0.6-1.4) mg/dl Est Cr Clr Drug Dosing ml/min Est GFR ( Amer) Est GFR (Non-Af Amer) BUN/Creatinine Ratio (10-20) Glucose (70-99) mg/dl POC Lactic Acid Marcio 1.62 (0.90-1.70) mmol/L Calcium (8.5-10.1) mg/dl Phosphorus (2.5-4.9) mg/dl Magnesium (1.8-2.4) mg/dl Total Bilirubin (0.2-1) mg/dl AST (15-37) U/L ALT (12-78) U/L Alkaline Phosphatase (45-117) U/L Troponin I (0-0.045) ng/ml NT-Pro-B Natriuret Pep (0-450) pg/ml Total Protein (6.4-8.2) gm/dl Albumin (3.4-5.0) gm/dl Globulin (2.5-4.0) gm/dl Albumin/Globulin Ratio (0.9-2) Lipase (73-393) U/L Procalcitonin 0.12 (0-0.5) ng/ml TSH (0.300-4.500) uIu/ml Diagnostic Findings XR chest 2V routine CLINICAL HISTORY: sob, fever dyspnea COMPARISON STUDY: 07/07/2018 FINDINGS: Mild stable cardia megaly. Poorly defined parenchymal infiltrative process right mid and lower lung region. No region of consolidation. Lungs otherwise appear clear. IMPRESSION: Patchy parenchymal infiltrate right mid and lower lung. The above report was generated using voice recognition software. It may contain grammatical, syntax or spelling errors. Electronically signed by: Tim Reynolds M.D. 12/24/2018 4:33 PM Dictated: 12/24/18 1632 Transcribed: 12/24/18 1632 ECG Indication: SOB/dyspnea Rhythm: normal sinus Code Status & VTE Plan Code Status Full VTE Prophylaxis Plan VTE Prophylaxis will be ordered: Yes Critical Care Time Critical Care Time: No (1) Pneumonia Laterality: right Lung location: middle lobe of lung Pneumonia type: due to unspecified organism Qualified Code(s): J18.1 - Lobar pneumonia, unspecified organism (2) Multiple myeloma Multiple myeloma remission status: not in remission Qualified Code(s): C90.00 - Multiple myeloma not having achieved remission (3) Hypertension Hypertension type: essential hypertension Qualified Code(s): I10 - Essential (primary) hypertension
[2018-12-25] MEDS ORDERED: POTASSIUM CHLORIDE 20 MEQ TABCR PO ONE (04:30)
[2018-12-25] MEDS ORDERED: MAGNESIUM SULFATE / D5W 1 GM/100 ML BAG IV ONE (04:30)
[2018-12-25 07:41] LABS: Basophils # (auto) 0.01 K/uL (0-0.2); Basophils % (auto) 0.2 %; Eosinophils # (auto) 0.12 K/uL (0-0.5); Eosinophils % (auto) 2.1 %; Hematocrit (blood only) 41.2 % (42-52); Hemoglobin 14.3 g/dL (14.0-18.0); Immature Granulocytes # (auto) 0.01 K/uL (0.00-0.02); Immature Granulocytes % (auto) 0.2 %; Lymphocytes # (auto) 0.47 K/uL (1.2-3.4); Lymphocytes % (auto) 8.1 %; Mean Corpuscular Hgb Conc 34.7 g/dL (32-36); Mean Corpuscular Volume 96.7 fL (80-100); Mean Platelet Volume 11.5 fL (7.4-10.4); Monocytes # (auto) 0.25 K/uL (0.11-0.59); Monocytes % (auto) 4.3 %; Neutrophils # (auto) 4.91 K/uL (1.4-6.5); Neutrophils % (auto) 85.1 %; Platelet Count 109 K/uL (130-400); RDW Coefficient of Variation 14.2 % (11.5-14.5); RDW Standard Deviation 50.3 fL (36.4-46.3); Red Blood Count 4.26 M/uL (4.7-6.1); White Blood Count 5.77 K/uL (4.8-10.8)
[2018-12-25 08:01] LABS: BUN Creatinine Ratio 11.4 (10-20); Calcium 8.7 mg/dl (8.5-10.1); Est GFR (African American) 73.4; Est GFR (Non-African American) 63.3; Potassium 3.6 mmol/L (3.5-5.1)
[2018-12-25] MEDS: ESCITALOPRAM OXALATE 10 MG TAB PO SCH (10:54)
[2018-12-25] MEDS: BUMETANIDE 1 MG TAB PO SCH (10:55)
[2018-12-25] MEDS: guaiFENesin 600 MG TABCR PO SCH ×2 (10:55→20:40)
[2018-12-25] MEDS: POTASSIUM CHLORIDE 20 MEQ TABCR PO SCH ×2 (10:56→20:41)
[2018-12-25] MEDS: ALBUTEROL HFA 8 GM INHALER INH PRN (12:20)
--- NOTE | 2018-12-25 15:58 | History & Physical Bridge Note ---
Date of Service December 25, 2018 History & Physical Bridge Note Patient seen and examined today. Improving slightly from admission. Reports continued cough and shortness of breath though with exertion. Continue IV abx, breathing treatments.
[2018-12-25] MEDS: cefTRIAXone SODIUM 2,000 MG in DEXTROSE 5% 50 ML IV SCH (16:21)
[2018-12-25] MEDS ORDERED: cefTRIAXone SODIUM 1,000 MG in DEXTROSE 5% 50 ML IV SCH (17:00)
[2018-12-25] MEDS ORDERED: ALBUT/IPRATROP 3MG/0.5MG NEB 3 ML VIAL NEB PRN (17:32)
[2018-12-25] MEDS ORDERED: AZITHROMYCIN 250 MG in DEXTROSE 5% 250 ML IV SCH (18:00)
[2018-12-25] MEDS: WARFARIN SOD 2.5 MG TAB PO SCH (20:40)
[2018-12-25] MEDS: ONDANSETRON INJ 2 MG/ML 2 ML VIAL IV PRN (22:22)
[2018-12-26] MEDS: ACYCLOVIR 400 MG TAB PO SCH ×2 (07:46→21:30)
[2018-12-26] MEDS: ESCITALOPRAM OXALATE 10 MG TAB PO SCH (07:46)
[2018-12-26] MEDS: DRONEDARONE HCL 400 MG TAB PO SCH ×2 (07:46→21:30)
[2018-12-26] MEDS: BUMETANIDE 1 MG TAB PO SCH (07:46)
[2018-12-26] MEDS: POTASSIUM CHLORIDE 20 MEQ TABCR PO SCH ×2 (07:47→21:32)
[2018-12-26] MEDS: guaiFENesin 600 MG TABCR PO SCH ×2 (07:47→21:29)
[2018-12-26 08:09] LABS: INR 2.7 (0.9-1.1); Prothrombin Time 25.9 Seconds (9.0-12.0)
[2018-12-26] MEDS ORDERED: LOPERAMIDE HCL 2 MG CAP PO PRN (11:55)
--- NOTE | 2018-12-26 17:07 | Hospitalist Progress Note ---
Date of Service December 26, 2018 Assessment & Plan (1) Pneumonia: CXR on 12/24 with RML, RLL infiltrate. - Continue ceftriaxone - Switched azithromycin to doxy on 12/26 for concern for QTc prolongation. - Mucinex BID - DuoNebs PRN (2) Hemoptysis: Patient reports a small amount of bloody sputum. Likely related to therapeutic INR with bronchial irritation. - Monitor hgb (3) Multiple myeloma: Initially diagnosed with lambda light chain MM in 05/2014. Patient on weekly Velcade, dexamethasone, and daratumumab, with IVIg to help with decreased IgG levels. Follows with Dr. Rodriges. Plan for eventual stem cell treatment. 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 He follows at [facility]. - Initially on IVF as above in setting of acute infectious process; now off - Continue home Bumex 2mg po daily - Monitor volume status (5) Paroxysmal atrial fibrillation: Patient presently in NSR. Anticoagulated on Coumadin. INR is 2.7 on 12/26. - Continue Multaq - Continue warfarin (6) Depression: Patient has been taking Lexapro since his diagnosis. - Continue Lexapro (7) Hypertension: Blood pressure well-controlled at present. - Continue Bumex - Continue to monitor (8) DVT prophylaxis: On anticoagulation for his paroxsymal afib Subjective 48yo M w/ hx of multiple myeloma who presents with pneumonia. Feeling some better today, but still with cough and some shortness of breath. Reports no fevers/chills, chest pain, abdominal pain, nausea, or vomiting. Physical Exam Vital Signs (Past 24 Hours): Last Vital Signs Temp 36.8 C 12/26/18 14:38 Pulse 75 12/26/18 14:38 Resp 20 12/26/18 14:38 BP 104/67 12/26/18 14:38 Pulse Ox 99 12/26/18 14:38 Constitutional: WD/WN, vitals as above Eyes: EOM intact bilaterally; no conjunctival abnormality ENMT: external ear and nose normal, oropharynx normal Neck: trachea midline, no thyromegaly normal visual inspection Respiratory: normal respiratory effort, lungs clear to auscultation no respiratory distress Cardiovascular: RRR, no murmur, no edema Gastrointestinal (Abdomen): Inspection/Auscultation: abdomen normal to inspection; abdomen not distended Musculoskeletal: no cyanosis or clubbing, extremities motor strength 5/5 Skin: no rashes, warm and dry Neurologic: moves all extremities and awake Psychiatric: Orientation: alert, oriented to person and cooperative (1) Pneumonia Laterality: right Lung location: middle lobe of lung Pneumonia type: due to unspecified organism Qualified Code(s): J18.1 - Lobar pneumonia, unspecified organism (2) Multiple myeloma Multiple myeloma remission status: not in remission Qualified Code(s): C90.00 - Multiple myeloma not having achieved remission (3) Hypertension Hypertension type: essential hypertension Qualified Code(s): I10 - Essential (primary) hypertension
[2018-12-26] MEDS: cefTRIAXone SODIUM 2,000 MG in DEXTROSE 5% 50 ML IV SCH (17:16)
--- NOTE | 2018-12-26 18:46 | Hospitalist Progress Note ---
Date of Service December 25, 2018 Assessment & Plan (1) Pneumonia: CXR on 12/24 with RML, RLL infiltrate. - Continue ceftriaxone & azithromycin - Mucinex BID - DuoNebs PRN (2) Hemoptysis: Patient reported a small amount of bloody sputum. Likely related to therapeutic INR with bronchial irritation. - Monitor hgb (3) Multiple myeloma: Initially diagnosed with lambda light chain MM in 05/2014. Patient on wee kly Velcade, dexamethasone, and daratumumab, with IVIg to help with decreased IgG levels. Follows with Dr. Rodriges. Plan for eventual stem cell treatment. 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 He follows at [facility]. - Initially on IVF as above in setting of acute infectious process; now off - Continue home Bumex 2mg po daily - Monitor volume status (5) Paroxysmal atrial fibrillation: Patient presently in NSR. Anticoagulated on Coumadin. INR was 2.5 on 12/24. - Continue Multaq - Continue warfarin (6) Depression: Patient has been taking Lexapro since his diagnosis. - Continue Lexapro (7) Hypertension: Blood pressure well-controlled at present. - Continue Bumex - Continue to monitor (8) DVT prophylaxis: On anticoagulation for his paroxsymal afib Subjective 48yo M w/ hx of multiple myeloma who presents with pneumonia. Still with cough and some shortness of breath. Hard to get to the restroom. Reports no fevers/chills, chest pain, abdominal pain, nausea, or vomiting. Physical Exam Vital Signs (Past 24 Hours): Last Vital Signs Temp 36.8 C 12/26/18 14:38 Pulse 75 12/26/18 14:38 Resp 20 12/26/18 14:38 BP 104/67 12/26/18 14:38 Pulse Ox 99 12/26/18 14:38 Constitutional: WD/WN, vitals as above Eyes: EOM intact bilaterally; no conjunctival abnormality ENMT: external ear and nose normal, oropharynx normal Neck: trachea midline, no thyromegaly normal visual inspection Respiratory: normal respiratory effort, lungs clear to auscultation no respiratory distress Auscultation: + crackles and + wheezes Cardiovascular: RRR, no murmur, no edema Gastrointestinal (Abdomen): Inspection/Auscultation: abdomen normal to inspection; abdomen not distended Musculoskeletal: no cyanosis or clubbing, extremities motor strength 5/5 Skin: no rashes, warm and dry Neurologic: moves all extremities and awake Psychiatric: Orientation: alert, oriented to person and cooperative (1) Pneumonia Laterality: right Lung location: middle lobe of lung Pneumonia type: due to unspecified organism Qualified Code(s): J18.1 - Lobar pneumonia, unspecified organism (2) Multiple myeloma Multiple myeloma remission status: not in remission Qualified Code(s): C90.00 - Multiple myeloma not having achieved remission (3) Hypertension Hypertension type: essential hypertension Qualified Code(s): I10 - Essential (primary) hypertension
[2018-12-26] MEDS: DOXYCYCLINE HYCLATE 100 MG in DEXTROSE 5% 100 ML IV SCH (19:47)
[2018-12-26] MEDS: ALBUTEROL HFA 8 GM INHALER INH PRN (19:47)
[2018-12-26] MEDS: WARFARIN SOD 2.5 MG TAB PO SCH (21:31)
[2018-12-26] MEDS: ONDANSETRON INJ 2 MG/ML 2 ML VIAL IV PRN (21:36)
[2018-12-27 06:52] LABS: Hematocrit (blood only) 38.8 % (42-52); Hemoglobin 13.3 g/dL (14.0-18.0); Mean Corpuscular Hgb Conc 34.3 g/dL (32-36); Mean Corpuscular Volume 98.7 fL (80-100); Mean Platelet Volume 11.9 fL (7.4-10.4); Platelet Count 114 K/uL (130-400); RDW Coefficient of Variation 14.1 % (11.5-14.5); RDW Standard Deviation 50.6 fL (36.4-46.3); Red Blood Count 3.93 M/uL (4.7-6.1); White Blood Count 6.56 K/uL (4.8-10.8)
[2018-12-27 07:03] LABS: INR 2.6 (0.9-1.1); Prothrombin Time 25.2 Seconds (9.0-12.0)
[2018-12-27] MEDS: ACYCLOVIR 400 MG TAB PO SCH ×2 (08:21→21:22)
[2018-12-27] MEDS: ESCITALOPRAM OXALATE 10 MG TAB PO SCH (08:21)
[2018-12-27] MEDS: DRONEDARONE HCL 400 MG TAB PO SCH ×2 (08:21→21:22)
[2018-12-27] MEDS: BUMETANIDE 1 MG TAB PO SCH (08:21)
[2018-12-27] MEDS: DOXYCYCLINE HYCLATE 100 MG in DEXTROSE 5% 100 ML IV SCH (08:21)
[2018-12-27] MEDS: guaiFENesin 600 MG TABCR PO SCH ×2 (08:22→21:22)
[2018-12-27] MEDS: POTASSIUM CHLORIDE 20 MEQ TABCR PO SCH ×2 (08:22→21:22)
[2018-12-27] MEDS ORDERED: GUAIFENESIN/CODEINE 100MG/10MG 5ML UDC PO PRN (11:19)
--- NOTE | 2018-12-27 12:30 | XRay Report ---
XR chest 2V routine CLINICAL HISTORY: Shortness of breath COMPARISON STUDY: Chest radiograph December 24, 2018. FINDINGS: Lung volumes are normal. There is no pneumothorax or pleural effusion. Suspicious lytic ske letal lesions shown on prior chest CT are better depicted on that exam due to differences in techniqu e. Right mid lung airspace opacity shown on exam of December 23, 2018 has resolved. There is mild inters titial thickening. Cardiomegaly is unchanged. IMPRESSION: 1. Resolution of the right midlung airspace opacity shown on exam of December 24, 2018 consistent with r esolution of an infectious process. 2. Interstitial thickening which suggests mild pulmonary edema. 3. Stable cardiomegaly. Electronically signed by: Jamal River M.D. 12/27/2018 12:29 PM
[2018-12-27] MEDS: predniSONE 20 MG TAB PO SCH (13:07)
[2018-12-27] MEDS: BENZONATATE 100 MG CAPSULE PO SCH ×2 (13:07→21:51)
[2018-12-27] MEDS ORDERED: FUROSEMIDE 40 MG/4 ML VIAL IV STA (13:32)
[2018-12-27] MEDS ORDERED: FUROSEMIDE 40 MG in SYRINGE 0 ML IV ONE (14:00)
[2018-12-27] MEDS: cefTRIAXone SODIUM 2,000 MG in DEXTROSE 5% 50 ML IV SCH (16:44)
--- NOTE | 2018-12-27 18:05 | Hospitalist Progress Note ---
Date of Service December 27, 2018 Assessment & Plan (1) Pneumonia: CXR on 12/24 with RML, RLL infiltrate. - Continue ceftriaxone & doxycycline - Mucinex BID - DuoNebs PRN - Started prednisone 40mg PO daily on 12/27 for continued wheezing. Repeat CXR indicates improved pneumonia, but mild pulmonary edema. (2) Hemoptysis: Patient reported a small amount of bloody sputum. Likely related to therapeutic INR with bronchial irritation. - Monitor hgb (3) Multiple myeloma: Initially diagnosed with lambda light chain MM in 05/2014. Patient on weekly Velcade, dexamethasone, and daratumumab, with IVIg to help with decreased IgG levels. Follows with Dr. Rodriges. Plan for eventual stem cell treatment. 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 He follows at [facility]. - Initially on IVF as above in setting of acute infectious process; now off - Continue home Bumex 2mg po daily - Monitor volume status - Given Lasix 40mg IV x1 on 12/27 for CXR indicating mild pulmonary edema. (5) Paroxysmal atrial fibrillation: Patient presently in NSR. Anticoagulated on Coumadin. INR was 2.6 on 12/27. - Continue Multaq - Continue warfarin (6) Depression: Patient has been taking Lexapro since his diagnosis. - Continue Lexapro (7) Hypertension: Blood pressure well-controlled at present. - Continue Bumex - Continue to monitor (8) DVT prophylaxis: On anticoagulation for his paroxsymal afib Subjective Slowly improving shortness of breath. No further fevers or chills. Reports no fevers/chills, chest pain, abdominal pain, nausea, or vomiting. 48yo M w/ hx of multiple myeloma who presents with pneumonia. Still with cough and some shortness of breath. Hard to get to the restroom. Reports no fevers/chills, chest pain, abdominal pain, nausea, or vomiting. Review of Systems Constitutional: no fever, no chills and no sweats Eyes: no diplopia Ear, Nose, Mouth, Throat: no ear trauma, no nasal discharge and no dental pain Respiratory: + cough, + chest congestion and + dyspnea Cardiovascular: no chest pain, no dyspnea on exertion, no palpitations and no syncope Gastrointestinal: no abdominal pain, no belching, no constipation, no diarrhea/loose stools, no blood in stools and no melena Musculoskeletal: no back pain, no joint pain and no muscle weakness Integumentary: no rash, no skin ulcer and no erythema Neurologic: no generalized weakness, no loss of sensation, no numbness and no paresthesia Psychiatric: no depression and no anxiety Endocrine: no fatigue, no polydipsia and no polyphagia Physical Exam Constitutional: WD/WN, vitals as above Eyes: EOM intact bilaterally; no conjunctival abnormality ENMT: external ear and nose normal, oropharynx normal Neck: trachea midline, no thyromegaly normal visual inspection Respiratory: normal respiratory effort, lungs clear to auscultation no respiratory distress Auscultation: + crackles and + wheezes Cardiovascular: RRR, no murmur, no edema Gastrointestinal (Abdomen): Inspection/Auscultation: abdomen normal to inspection; abdomen not distended Musculoskeletal: no cyanosis or clubbing, extremities motor strength 5/5 Skin: no rashes, warm and dry Neurologic: moves all extremities and awake Psychiatric: Orientation: alert, oriented to person and cooperative Results & Data Vital Signs (Past 12 Hours) Vital Signs Temp Pulse Resp BP BP Pulse Ox 12/27/18 14:57 36.6 C 73 18 119/72 95 12/27/18 07:57 36.6 C 69 20 124/77 93 (1) Pneumonia Laterality: right Lung location: middle lobe of lung Pneumonia type: due to unspecified organism Qualified Code(s): J18.1 - Lobar pneumonia, unspecified organism (2) Multiple myeloma Multiple myeloma remission status: not in remission Qualified Code(s): C90.00 - Multiple myeloma not having achieved remission (3) Hypertension Hypertension type: essential hypertension Qualified Code(s): I10 - Essential (primary) hypertension
[2018-12-27] MEDS: WARFARIN SOD 2.5 MG TAB PO SCH (21:22)
[2018-12-27] MEDS: DOXYCYCLINE HYCLATE 100 MG CAP PO SCH (21:22)
--- NOTE | 2018-12-28 06:37 | Hospitalist Progress Note ---
Date of Service December 28, 2018 Assessment & Plan (1) Pneumonia: CXR on 12/24 with RML, RLL infiltrate. - Continue ceftriaxone & doxycycline - Mucinex BID - DuoNebs PRN - Started prednisone 40mg PO daily on 12/27 for continued wheezing. Repeat CXR indicates improved pneumonia, but mild pulmonary edema. (2) Hemoptysis: Patient reported a small amount of bloody sputum. Likely related to therapeutic INR with bronchial irritation. - Monitor hgb (3) Multiple myeloma: Initially diagnosed with lambda light chain MM in 05/2014. Patient on weekly Velcade, dexamethasone, and daratumumab, with IVIg to help with decreased IgG levels. Follows with Dr. Rodriges. Plan for eventual stem cell treatment. 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 He follows at [facility]. - Initially on IVF as above in setting of acute infectious process; now off - Continue home Bumex 2mg po daily - Monitor volume status - Given Lasix 40mg IV x1 on 12/27 for CXR indicating mild pulmonary edema. (5) Paroxysmal atrial fibrillation: Patient presently in NSR. Anticoagulated on Coumadin. INR was 2.6 on 12/27. - Continue Multaq - Continue warfarin (6) Depression: Patient has been taking Lexapro since his diagnosis. - Continue Lexapro (7) Hypertension: Blood pressure well-controlled at present. - Continue Bumex - Continue to monitor (8) DVT prophylaxis: On anticoagulation for his paroxsymal afib Subjective 48yo M w/ hx of multiple myeloma who presents with pneumonia. Still with cough and some shortness of breath. Hard to get to the restroom. Reports no fevers/chills, chest pain, abdominal pain, nausea, or vomiting. Review of Systems Constitutional: no fever, no chills and no sweats Eyes: no diplopia Ear, Nose, Mouth, Throat: no ear trauma, no nasal discharge and no dental pain Respiratory: no cough, no chest congestion and no dyspnea Cardiovascular: no chest pain, no dyspnea on exertion, no palpitations and no syncope Gastrointestinal: no abdominal pain, no belching, no constipation, no diarrhea/loose stools, no blood in stools and no melena Musculoskeletal: no back pain, no joint pain and no muscle weakness Integumentary: no rash, no skin ulcer and no erythema Neurologic: no generalized weakness, no loss of sensation, no numbness and no paresthesia Psychiatric: no depression and no anxiety Endocrine: no fatigue, no polydipsia and no polyphagia Physical Exam Constitutional: WD/WN, vitals as above Eyes: EOM intact bilaterally; no conjunctival abnormality ENMT: external ear and nose normal, oropharynx normal Neck: trachea midline, no thyromegaly normal visual inspection Respiratory: normal respiratory effort, lungs clear to auscultation no respiratory distress Auscultation: + crackles and + wheezes Cardiovascular: RRR, no murmur, no edema Gastrointestinal (Abdomen): Inspection/Auscultation: abdomen normal to in spection; abdomen not distended Musculoskeletal: no cyanosis or clubbing, extremities motor strength 5/5 Skin: no rashes, warm and dry Neurologic: moves all extremities and awake Psychiatric: Orientation: alert, oriented to person and cooperative Results & Data Vital Signs (Past 12 Hours) Vital Signs Temp Pulse Resp BP Pulse Ox 12/28/18 00:00 37.0 C 75 20 109/66 95 (1) Pneumonia Laterality: right Lung location: middle lobe of lung Pneumonia type: due to unspecified organism Qualified Code(s): J18.1 - Lobar pneumonia, unspecified organism (2) Multiple myeloma Multiple myeloma remission status: not in remission Qualified Code(s): C90.00 - Multiple myeloma not having achieved remission (3) Hypertension Hypertension type: essential hypertension Qualified Code(s): I10 - Essential (primary) hypertension
[2018-12-28 07:09] LABS: Hematocrit (blood only) 38.5 % (42-52); Hemoglobin 13.5 g/dL (14.0-18.0); Mean Corpuscular Hgb Conc 35.1 g/dL (32-36); Mean Corpuscular Volume 97.2 fL (80-100); Mean Platelet Volume 11.7 fL (7.4-10.4); Platelet Count 137 K/uL (130-400); RDW Coefficient of Variation 13.9 % (11.5-14.5); RDW Standard Deviation 49.2 fL (36.4-46.3); Red Blood Count 3.96 M/uL (4.7-6.1); White Blood Count 8.45 K/uL (4.8-10.8)
[2018-12-28 07:17] LABS: INR 2.5 (0.9-1.1); Prothrombin Time 23.9 Seconds (9.0-12.0)
[2018-12-28 07:48] LABS: BUN Creatinine Ratio 17.8 (10-20); Calcium 8.8 mg/dl (8.5-10.1); Creatinine Clr Calc Pharmacy 74.6 ml/min; Est GFR (African American) 66.1; Potassium 4.4 mmol/L (3.5-5.1)
[2018-12-28] MEDS: BUMETANIDE 1 MG TAB PO SCH (07:55)
[2018-12-28] MEDS: predniSONE 20 MG TAB PO SCH (07:55)
[2018-12-28] MEDS: guaiFENesin 600 MG TABCR PO SCH (07:56)
[2018-12-28] MEDS: DOXYCYCLINE HYCLATE 100 MG CAP PO SCH (07:56)
[2018-12-28] MEDS: BENZONATATE 100 MG CAPSULE PO SCH (07:56)
[2018-12-28] MEDS: ACYCLOVIR 400 MG TAB PO SCH (07:56)
[2018-12-28] MEDS: ESCITALOPRAM OXALATE 10 MG TAB PO SCH (07:56)
[2018-12-28] MEDS: POTASSIUM CHLORIDE 20 MEQ TABCR PO SCH (07:56)
[2018-12-28] MEDS: DRONEDARONE HCL 400 MG TAB PO SCH (07:56)
--- NOTE | 2018-12-28 15:50 | Discharge Summary ---
Date of Service December 28, 2018 Admission HPI Per Admitting Provider Mr. Angeles is a 48yo male with history of MM and Amyloidosis with restrictive cardiomyopathy presenting with PNA. Patient reports having a head cold 3 weeks ago that then went to his chest. Two days ago he began experiencing fevers. Fevers have persisted - last one reported to be last night, 103, relieved with Advil. Also with cough productive for yellow sputum. Patient had a small amount of hemoptysis yesterday. He also reports KARIMI and shortness of breath with laying on his left side. He had had two days of watery diarrhea and dizziness as well. Denies CP/palpitations/abdominal pain/vomiting. Denies weight loss, night sweats. ER Course: Tylenol. Albuterol. Azithromycin. Ceftriaxone Principal Diagnosis Pneumonia Discharge Exam Constitutional WD/WN, vitals as above Eyes EOM intact bilaterally; no conjunctival abnormality ENMT external ear and nose normal, oropharynx normal Neck trachea midline, no thyromegaly normal visual inspection Respiratory normal respiratory effort, lungs clear to auscultation no respiratory distress Auscultation: + crackles and + wheezes Cardiovascular RRR, no murmur, no edema Gastrointestinal (Abdomen) Inspection/Auscultation: abdomen normal to inspection; abdomen not distended Musculoskeletal no cyanosis or clubbing, extremities motor strength 5/5 Skin no rashes, warm and dry Neurologic moves all extremities and awake Psychiatric Orientation: alert, oriented to person and cooperative Discharge Data Allergies Allergy/AdvReac Type Severity Reaction Status Date / Time No Known Allergies Allergy Verified 12/24/18 17:12 Consultations 12/24/18 20:22 ED Decision to Admit Stat Hospital Course (1) Pneumonia: CXR on 12/24 with RML, RLL infiltrate. - Continue ceftriaxone & doxycycline -> Discharged on Omnicef and doxy for a 7- day course. Also getting 3-day course of steroids to help if with any reactive airway issues. - Mucinex BID - DuoNebs PRN - Started prednisone 40mg PO daily on 12/27 for continued wheezing. Repeat CXR indicates improved pneumonia, but mild pulmonary edema. (2) Hemoptysis: Patient reported a small amount of bloody sputum. Likely related to therapeutic INR with bronchial irritation. - Monitor hgb (3) Multiple myeloma: Initially diagnosed with lambda light chain MM in 05/2014. Patient on weekly Velcade, dexamethasone, and daratumumab, with IVIg to help with decreased IgG levels. Follows with Dr. Rodriges. Plan for eventual stem cell treatment. 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 He follows at [facility]. - Initially on IVF as above in setting of acute infectious process; now off - Continue home Bumex 2mg po daily - Monitor volume status - Given Lasix 40mg IV x1 on 12/27 for CXR indicating mild pulmonary edema. No further diuretic needed. Return to home dose on discharge. Check BMP in 1 week. (5) Paroxysmal atrial fibrillation: Patient presently in NSR. Anticoagulated on Coumadin. INR was 2.6 on 12/27. - Continue Multaq - Continue warfarin - INR check in 5-7 days. (6) Depression: Patient has been taking Lexapro since his diagnosis. - Continue Lexapro (7) Hypertension: Blood pressure well-controlled at present. - Continue Bumex - Continue to monitor (8) DVT prophylaxis: On anticoagulation for his paroxsymal afib Total Time Total Time Spent Total Time Spent (In Minutes): 40 Total Time Includes: Examination of the Patient and Discharge Planning Discharge Plan Discharge Items Patient Disposition: Home - Self-Care Reason For Visit: PNA Discharge Diagnosis: Pneumonia Discharge Goals: Decrease discomfort Activity: Resume your previous activity Non-emergency contact: Primary Care Provider and Oncologist Call non-emergency contact if: your symptoms worsen, your pain is not controlled and your temperature is above 100.5 Follow-up/Referrals: Dariela Billingsley MD [Primary Care Provider] - 01/02/19 10:45 am (Please, follow up with Dr. Mathias on TuesdayJanuary 02 at 10:45 am. *If you need to change this appointment, call the office at [phone].) Diet: Heart Healthy Addtl Provider Instructions: Mr. Ochoa, You were admitted to the hospital with pneumonia. We gave you IV antibiotics for a few days, and your breathing improved during that time. We also started some low-dose steroids on December 27 because you were still having some shortness of breath with a little wheezing. This also seemed to help, and by discharge, you were feeling close to back to normal. Please finish the last 4 days of antibiotics. We will put you on 2 antibiotics to be sure we are covering you with antibiotics that will kill all the most common types of bacteria that cause pneumonia. Take your first dose of antibiotics tonight, then 2 times per day after that. We will also give you a short course of steroids as well (3 more days), so please take the prednisone each morning with the morning dose of antibiotics. Please see your PCP and oncologist at the normal scheduled time. Please come back to the hospital with any further shortness of breath, fevers, chills, worsening cough, or other problems. Prescriptions: New doxycycline hyclate 100 mg Capsule 100 mg PO BID Qty: 9 RF: 0 prednisone 20 mg Tablet 40 mg PO DAILY Qty: 3 RF: 0 cefdinir 300 mg capsule 300 mg PO BID Qty: 9 RF: 0 Continued acyclovir 400 mg Tablet 400 mg PO BID RF: 0 albuterol sulfate [Ventolin HFA] 90 mcg/actuation Hfa Aerosol Inhaler 2 puff INHALATION Q4H PRN (Reason: Cough) RF: 0 escitalopram oxalate [Lexapro] 10 mg Tablet 10 mg PO DAILY RF: 0 Velcade 3.5 mg Recon Soln 1 dose subcut WK RF: 0 Multaq 400 mg Tablet 400 mg PO BID RF: 0 bumetanide 1 mg tablet 2 mg PO DAILY RF: 0 potassium chloride 20 mEq tablet extended release 10 meq PO Q12 RF: 0 prednisone 20 mg tablet 20 mg PO DIRECTED RF: 0 immun glob [id number] 0-50 5 gram recon soln IV .[id number] RF: 0 zoledronic acid [Zometa] 4 mg/5 mL solution IV .[id number] RF: 0 warfarin 2.5 mg tablet 2.5 mg PO QPM Qty: 30 RF: 2 Darzalex 20 mg/mL Solution 1 dose IV DIRECTED Qty: 0 RF: 0 Stand-Alone Forms: [facility] Discharge Orders: Discharge Order (Routine); Ordered 12/28/18 Ordered By: Otf Paniagua Admission Data Admit Date/Time: 12/24/18 22:15 Attending Provider: Otf Paniagua Admit Provider: Gayle Vivar Primary Care Provider: Dariela Billingsley Other Providers: Otf Paniagua Service: Medical Other Interventions: Discharge Summary Assessment (RN) Last Done: 12/28/18 12:27 DC Date/Time DO NOT enter until pt leaves facility: 12/28/18 13:05
== END 2018-12-28 13:05 | disposition home or self-care (01) | DRG 194 ==
LOC: ED 15:00 → SUATTDRO 22:15 → 4W 22:15

== ENCOUNTER 2020-09-02 00:32 | Inpatient (IN) ==
[2020-09-02] MEDS ORDERED: SODIUM CHLORIDE 0.9% 1000ML 1,000 ML IV ONE (00:55)
--- NOTE | 2020-09-02 01:03 | Emergency Department Note ---
Impression & Plan COVID-19, Elevated troponin, SOB (shortness of breath) ED Provider Note Name: MATT WALTON Age: 50 Sex: M Arrives Via: Walk-In Informant: Patient ED Provider: Jaxon Contreras MD Chief Complaint: Fever Impression: Covid-19 Elevated Troponin Shortness of breath Medical Decision Making: Pleasant 50 yr old male with known Covid-19 from test last week and history of multiple myeloma on chemotherapy, Parox Afib on coumadin , Gerd, HTN, DMII, depression. Patient initially doing well with covid though over last 48 hours worsening symptoms and fevers. Ill appearing and dehydrated on arrival. Given IV fluids, though no further tylenol for fever as he had this prior to arrival. CXR with findings consistent with covid though not hypoxic thus held on steroids at this time. EKG OK. Labs OK other than elevated troponin. No persistent chest pain and EKG without STEMI thus I suspect this is more related to COVID than primary ACS. Coumadin with therapeutic INR thus will hold off heparin at this time but will give dose ASA. Patient comfortable with hospitalization and looks much improved just with initial fluids. Hospitalist in to evaluate further. He is immunosuppressed, though given no overt bacterial infection and procal is OK currently, will hold off on abx, but I did obtain cultures on arrival. Prior Medical Record and Triage/Nursing Notes reviewed by Me Additional history obtained from Differentials:Viral syndrome, otitis, pharyngitis, pneumonia, influenza, meningitis, urinary tract infection, sepsis, bacteremia, as well as other pathologies. Vital Signs: reviewed and remarkable for febrile Interventions: NSS bolus 1 L IV, ASA 324mg PO Labs:Reviewed and remarkable for elevated trop Imaging:X ray results are stated below per my interpretation: Chest: 1 view: Bilateral patchy infiltrates increased from previous CXR. EKG:Per My Interpretation: Indication Viral Infection: NSR 84 bpm, qtc 420, lateral T wave inversions and non-specific ST abnromal acraoss V2, though no STEMI criteria. No Ectopy. Compared to EKG 12/01/19, no significant changes. Cardiac/Tele Monitoring: Cardiac Monitoring: An Order was placed for continuous cardiac monitoring. The monitor shows a rate of 75 with a normal sinus rhythm. Consults:Dr Farhana Bryson Hospitalist Plan: Disposition:Hospitalization. Condition: Good History of Present Illness:50 yr old male with multiple myeloma on chemotherapy arrives for evaluation of fever. 1 week ago with fatigue, viral symptoms and fever and tested positive for COVID at that point. Notes he was feeling well until the last 36 hrs. Awoke with fevers, chills, fatigue yesterday morning. Worsening the last 2 days. Associated nausea, fatigue, weakness, chills, rigors, lack of appetite. Notes some mild chest discomfort though no overt nor specific pain. States chronic SHOB seems similar to previous though difficult to tell as he has known right pleural effusion. He has had no leg swelling, leg pain, abdominal pain, back pain, syncope, headache, vision changes, focal weak ness, urinary/bowel changes nor other symptoms. Using Tylenol and Motrin alternating for fever control at home. Meds seem to help some though symptoms return. Worse with exertion. No recent antibiotics. Last Chemo 17 days ago as he skipped Tuesday dose given he had known COVID. ROS: See above HPI for pertinent positives & negatives. A total of 10 systems reviewed and were otherwise negative. Past Medical History:Multiple myeloma, Gastritis, Pericarditis (resolved), Renal insufficiency, sleep apnea, depression, Afib, Neuropathy Past Surgical History:Vasectomy Family History:Denies medical issues Social History:Non smoker, retired, with children Home Medications:acyclovir, velcade, bumetanide, daratumumab, dronedarone, escitalopram, immune globulin, pantoprazole, prednisone, coumadin Allergies:NKDA Vitals:Blood Pressure: 125/80, Pulse 87, RR 18, T 37.8C, O2 96% on RA Physical Exam: GENERAL: Patient is ill appearing and in moderate distress. Dehydrated appearing. EYES: No scleral icterus, unremarkable pupils. ENT: Mucous membranes ++DRY, no nasal congestion. NECK: No masses appreciated, nomeningismus, trachea is midline. RESPIRATORY: Tachypnea/dyspnea with decreased breath sounds throughout right with crackles LLL CARDIOVASCULAR: Regular rate and rhythm.No murmurs, rubs, gallops appreciated. GASTROINTESTINAL: Abdomen soft, non-tender, no peritonitis.Bowel sounds positive.No masses appreciated. BACK: No midline tenderness, no CVA tenderness EXTREMITIES: Normal motion all extremities, no cyanosis, no edema. NEUROLOGIC: Alert and oriented, no acute motor or sensory deficits, no focal weakness, cranial nerves grossly intact. SKIN: No rash, no jaundice, no diaphoresis. PSYCH: Appropriate GCS: 15 ED Course: Times/Reassessments: Much improved post fluids Jaxon Contreras MD Past Med/Surg History Medical History (Updated 09/02/20 @ 03:50 by Jaxon Contreras MD) Amyloidosis dx 2018; follows with [facility] Atrial fibrillation Chronic diastolic CHF (congestive heart failure) History of depression Multiple myeloma dx 2013; follows with Dr. 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 Mother No problems noted. Social History Smoking Status: Never smoker Hx Alcohol Use: No Hx Substance Use: No Preferred Language: Setswana Communication Ability: Effective Collator Required: No Beliefs That Will Affect Care: None marital status details: twice - 3 children in total between the 2 marriages Current Living Situation: Spouse Current Living Situation Comment: lives in [place] current occupational status: disabled current occupation: previously worked at [employer] Feels Safe at Home: Yes Assistive Devices: CPAP and Oxygen - at Night Allergies Allergies Allergy/AdvReac Type Severity Reaction Status Date / Time No Known Allergies Allergy Verified 09/02/20 03:14 Home Meds Home Medications Medication Instructions Recorded Confirmed Darzalex 1 dose IV DIRECTED #0 04/17/18 09/02/20 Multaq 400 mg PO BID 05/16/18 09/02/20 Velcade 1 dose SUBCUT WK 05/16/18 09/02/20 acyclovir 400 mg PO BID 05/16/18 09/02/20 albuterol sulfate [Ventolin HFA] 2 puff INHALATION Q4H PRN 05/16/18 09/02/20 escitalopram oxalate [Lexapro] 10 mg PO QAM 05/16/18 09/02/20 immune glob,gamma(IgG) 5 0 g IV .Q4 WEEKS ea 09/20/18 09/02/20 vaoe-xdf-wypp-IgA 0 to 50 mcg/mL IV solution denosumab [Xgeva] 120 mg SUBCUT .EVERY 3 MONTHS 12/01/19 09/02/20 gabapentin 300 mg PO TID 12/01/19 09/02/20 methylprednisolone 20 mg PO UD 12/01/19 09/02/20 glipizide 10 mg PO QAM 09/02/20 09/02/20 pantoprazole 20 mg PO DAILY 09/02/20 09/02/20 potassium chloride 20 meq PO DAILY 09/02/20 09/02/20 torsemide 40 mg PO DAILY 09/02/20 09/02/20 Previous Rx's Medication Instructions Recorded warfarin 2.5 mg tablet 2.5 mg PO QPM #30 tab 11/22/18 Results & Data (ED) Vital Signs Vital Signs - 24 hr 09/02/20 00:35 09/02/20 01:59 09/02/20 03:00 Temperature 37.8 C H Temperature Source Temporal Artery Scan Pulse Rate 87 Pulse Rate [Right Finger] 81 79 Pulse Rhythm [Right Finger] Regular Regular Pulse Strength [Right Finger] Normal Normal Respiratory Rate 18 22 20 Respiratory Effort / Characteristics Non-Labored Non-Labored Spontaneous Respiratory Depth Normal Normal Normal Respiratory Pattern Regular Regular Blood Pressure 125/80 Blood Pressure [Left Arm] 114/68 123/80 Blood Pressure Mean 95 Blood Pressure Mean [Left Arm] 83 94 Blood Pressure Position Lying Blood Pressure Position [Left Arm] Sitting Sitting Pulse Oximetry 96 97 97 Oxygen Delivery Method Room Air Room Air Room Air Sepsis Recent Fever Within 48 Hours Yes Sepsis New/Unexplained Change in Mental Status No Sepsis Action Taken by Nursing No Action Required 09/02/20 04:12 Temperature Temperature Source Pulse Rate Pulse Rate [Right Finger] 77 Pulse Rhythm [Right Finger] Regular Pulse Strength [Right Finger] Normal Respiratory Rate 18 Respiratory Effort / Characteristics Non-Labored Spontaneous Respiratory Depth Normal Respiratory Pattern Blood Pressure Blood Pressure [Left Arm] 129/74 Blood Pressure Mean Blood Pressure Mean [Left Arm] 92 Blood Pressure Position Blood Pressure Position [Left Arm] Sitting Pulse Oximetry Oxygen Delivery Method Sepsis Recent Fever Within 48 Hours Sepsis New/Unexplained Change in Mental Status Sepsis Action Taken by Nursing Laboratory Data Result diagrams: 09/02/20 01:35 09/02/20 01:35 Lab Results 09/02/20 09/02/20 09/02/20 Range/Units 01:25 01:35 01:35 WBC 10.14 (4.8-10.8) K/uL RBC 4.34 L (4.7-6.1) M/uL Hgb 14.4 (14.0-18.0) g/dL Hct 42.5 (42-52) % MCV 97.9 (80-100) fL MCH 33.2 (25-34) pg MCHC 33.9 (32-36) g/dL RDW Std Deviation 50.6 H (36.4-46.3) fL RDW Coeff of Tobi 14.1 (11.5-14.5) % Plt Count 154 (130-400) K/uL MPV 11.2 H (7.4-10.4) fL Immature Gran % (Auto) 0.3 % Neut % (Auto) 90.9 % Lymph % (Auto) 4.3 % Wirt % (Auto) 3.8 % Eos % (Auto) 0.6 % Baso % (Auto) 0.1 % Neut # (Auto) 9.21 H (1.4-6.5) K/uL Lymph # (Auto) 0.44 L (1.2-3.4) K/uL Wirt # (Auto) 0.39 (0.11-0.59) K/uL Eos # (Auto) 0.06 (0-0.5) K/uL Baso # (Auto) 0.01 (0-0.2) K/uL Immature Gran # (Auto) 0.03 H (0.00-0.02) K/uL PT (9.0-12.0) Seconds INR (0.9-1.1) Sodium (136-145) mmol/L Potassium (3.5-5.1) mmol/L Chloride (98-107) mmol/L Carbon Dioxide (21-32) mmol/L Anion Gap (3-11) BUN (7-18) mg/dl Creatinine (0.6-1.4) mg/dl Est Cr Clr Drug Dosing ml/min Est GFR ( Amer) Est GFR (Non-Af Amer) BUN/Creatinine Ratio (10-20) Glucose (70-99) mg/dl Lactate (0.4-2.0) mmol/L Calcium (8.5-10.1) mg/dl Magnesium (1.8-2.4) mg/dl Total Bilirubin (0.2-1) mg/dl Direct Bilirubin (0-0.2) mg/dl AST (15-37) U/L ALT (12-78) U/L Alkaline Phosphatase (45-117) U/L Troponin I (0-0.045) ng/ml NT-Pro-B Natriuret Pep Total Protein (6.4-8.2) gm/dl Albumin (3.4-5.0) gm/dl Lipase (73-393) U/L Procalcitonin 0.35 (0-0.5) ng/ml Urine Color Yellow Urine Appearance Clear (Clear) Urine pH 5.5 (4.5-7.5) Ur Specific [place] 1.019 (1.000-1.030) Urine Protein 1+ H (Negative) Urine Glucose (UA) 2+ H (Negative) Urine Ketones Negative (Negative) Urine Blood Negative (Negative) Urine Nitrite Negative (Negative) Urine Bilirubin Negative (Negative) Urine Urobilinogen Negative (Negative) Ur Leukocyte Esterase Negative (Negative) Urine WBC (Auto) 0 (0-5) /hpf Urine RBC (Auto) 0-4 (0-4) /hpf U Hyaline Cast (Auto) 0 (0-5) /lpf U Epithel Cells (Auto) 10-20 H (0-5) /lpf Urine Bacteria (Auto) Negative (Negative) 09/02/20 09/02/20 09/02/20 Range/Units 01:35 01:35 01:50 WBC (4.8-10.8) K/uL RBC (4.7-6.1) M/uL Hgb (14.0-18.0) g/dL Hct (42-52) % MCV (80-100) fL MCH (25-34) pg MCHC (32-36) g/dL RDW Std Deviation (36.4-46.3) fL RDW Coeff of Tobi (11.5-14.5) % Plt Count (130-400) K/uL MPV (7.4-10.4) fL Immature Gran % (Auto) % Neut % (Auto) % Lymph % (Auto) % Wirt % (Auto) % Eos % (Auto) % Baso % (Auto) % Neut # (Auto) (1.4-6.5) K/uL Lymph # (Auto) (1.2-3.4) K/uL Wirt # (Auto) (0.11-0.59) K/uL Eos # (Auto) (0-0.5) K/uL Baso # (Auto) (0-0.2) K/uL Immature Gran # (Auto) (0.00-0.02) K/uL PT 29.8 H (9.0-12.0) Seconds INR 3.0 H (0.9-1.1) Sodium 136 (136-145) mmol/L Potassium 3.7 (3.5-5.1) mmol/L Chloride 101 (98-107) mmol/L Carbon Dioxide 30 (21-32) mmol/L Anion Gap 5.0 (3-11) BUN 25 H (7-18) mg/dl Creatinine 1.54 H (0.6-1.4) mg/dl Est Cr Clr Drug Dosing 70.0 ml/min Est GFR ( Amer) 60.1 Est GFR (Non-Af Amer) 51.8 BUN/Creatinine Ratio 15.9 (10-20) Glucose 233 H (70-99) mg/dl Lactate 1.5 (0.4-2.0) mmol/L Calcium 8.8 (8.5-10.1) mg/dl Magnesium 2.0 (1.8-2.4) mg/dl Total Bilirubin 0.5 (0.2-1) mg/dl Direct Bilirubin < 0.1 (0-0.2) mg/dl AST 50 H (15-37) U/L ALT 70 (12-78) U/L Alkaline Phosphatase 165 H (45-117) U/L Troponin I 0.091 H* (0-0.045) ng/ml NT-Pro-B Natriuret Pep Cancelled Total Protein 6.8 (6.4-8.2) gm/dl Albumin 3.2 L (3.4-5.0) gm/dl Lipase 143 (73-393) U/L Procalcitonin (0-0.5) ng/ml Urine Color Urine Appearance (Clear) Urine pH (4.5-7.5) Ur Specific [place] (1.000-1.030) Urine Protein (Negative) Urine Glucose (UA) (Negative) Urine Ketones (Negative) Urine Blood (Negative) Urine Nitrite (Negative) Urine Bilirubin (Negative) Urine Urobilinogen (Negative) Ur Leukocyte Esterase (Negative) Urine WBC (Auto) (0-5) /hpf Urine RBC (Auto) (0-4) /hpf U Hyaline Cast (Auto) (0-5) /lpf U Epithel Cells (Auto) (0-5) /lpf Urine Bacteria (Auto) (Negative) Administered Medications Discontinued Medications Aspirin (Aspirin Chew 324 Mg) 324 mg PO NOW STA Stop: 09/02/20 02:43 Last Admin: 09/02/20 02:47 Dose: 324 mg Documented by: [id number] Sodium Chloride (Nss 1000ml) 1,000 mls @ 999 mls/hr IV .Q1H1M ONE Stop: 09/02/20 01:55 Last Infusion: 09/02/20 03:10 Dose: 0 mls/hr Documented by: [id number] Admin: 09/02/20 02:13 Dose: 999 mls/hr Documented by: [id number] Discharge Plan Visit Data Chief Complaint: Fever Stated Complaint: + COVID - FEVER GETTING WORSE ED Provider: Jaxon Contreras Discharge Problem: COVID-19, Elevated troponin, SOB (shortness of breath) Forms Stand Alone Forms: My [facility] [employer] Prescriptions Prescriptions: No Action acyclovir 400 mg Tablet 400 mg PO BID RF: 0 albuterol sulfate [Ventolin HFA] 90 mcg/actuation Hfa Aerosol Inhaler 2 puff INHALATION Q4H PRN (Reason: Cough) RF: 0 escitalopram oxalate [Lexapro] 10 mg Tablet 10 mg PO QAM RF: 0 Velcade 3.5 mg Recon Soln 1 dose subcut WK RF: 0 Multaq 400 mg Tablet 400 mg PO BID RF: 0 immun glob E-jfx-osno-IgA 0-50 5 gram recon soln 0 g IV .Q4 WEEKS RF: 0 warfarin 2.5 mg tablet 2.5 mg PO QPM Qty: 30 RF: 2 Darzalex 20 mg/mL Solution 1 dose IV DIRECTED Qty: 0 RF: 0 methylprednisolone 4 mg Tablet 20 mg PO UD RF: 0 gabapentin 300 mg capsule 300 mg PO TID RF: 0 Xgeva 120 mg/1.7 mL (70 mg/mL) Solution 120 mg SUBCUT .EVERY 3 MONTHS RF: 0 torsemide 20 mg Tablet 40 mg PO DAILY RF: 0 glipizide 10 mg tablet extended release 24hr 10 mg PO QAM RF: 0 potassium chloride 10 mEq Tablet Extended Release 20 meq PO DAILY RF: 0 pantoprazole 20 mg Tablet,Delayed Release (Dr/Ec) 20 mg PO DAILY RF: 0
[2020-09-02 02:12] LABS: Basophils # (auto) 0.01 K/uL (0-0.2); Basophils % (auto) 0.1 %; Eosinophils # (auto) 0.06 K/uL (0-0.5); Eosinophils % (auto) 0.6 %; Hematocrit (blood only) 42.5 % (42-52); Hemoglobin 14.4 g/dL (14.0-18.0); Immature Granulocytes # (auto) 0.03 K/uL (0.00-0.02); Immature Granulocytes % (auto) 0.3 %; Lymphocytes # (auto) 0.44 K/uL (1.2-3.4); Lymphocytes % (auto) 4.3 %; Mean Corpuscular Hemoglobin 33.2 pg (25-34); Mean Corpuscular Hgb Conc 33.9 g/dL (32-36); Mean Corpuscular Volume 97.9 fL (80-100); Mean Platelet Volume 11.2 fL (7.4-10.4); Monocytes # (auto) 0.39 K/uL (0.11-0.59); Monocytes % (auto) 3.8 %; Neutrophils # (auto) 9.21 K/uL (1.4-6.5); Neutrophils % (auto) 90.9 %; Platelet Count 154 K/uL (130-400); RDW Coefficient of Variation 14.1 % (11.5-14.5); RDW Standard Deviation 50.6 fL (36.4-46.3); Red Blood Count 4.34 M/uL (4.7-6.1); White Blood Count 10.14 K/uL (4.8-10.8)
[2020-09-02 02:14] LABS: Appearance Urine Clear (Clear); Bacteria Urine Automated Negative (Negative); Bilirubin Urine Negative (Negative); Blood Urine Negative (Negative); Cast Urine Automated 0 /lpf (0-5); Color Urine Yellow; Glucose Urine UA 2+ (Negative); Ketones Urine Negative (Negative); Leukocyte Esterase Urine Negative (Negative); Nitrite Urine Negative (Negative); Protein Urine 1+ (Negative); RBC Urine Automated 0-4 /hpf (0-4); Specific Gravity Urine 1.019 (1.000-1.030); Urobilinogen Urine Negative (Negative); WBC Urine Automated 0 /hpf (0-5); pH Urine 5.5 (4.5-7.5)
[2020-09-02 02:19] LABS: Prothrombin Time 29.8 Seconds (9.0-12.0)
[2020-09-02 02:31] LABS: Alanine Aminotransferase 70 U/L (12-78); Albumin Level 3.2 gm/dl (3.4-5.0); Aspartate Aminotransferase 50 U/L (15-37); BUN Creatinine Ratio 15.9 (10-20); Bilirubin Direct < 0.1 mg/dl (0-0.2); Blood Urea Nitrogen 25 mg/dl (7-18); Calcium 8.8 mg/dl (8.5-10.1); Carbon Dioxide 30 mmol/L (21-32); Chloride 101 mmol/L (98-107); Est GFR (African American) 60.1; Est GFR (Non-African American) 51.8; Glucose 233 mg/dl (70-99); Lipase 143 U/L (73-393); Potassium 3.7 mmol/L (3.5-5.1); Sodium 136 mmol/L (136-145)
[2020-09-02 02:40] LABS: Alkaline Phosphatase 165 U/L (45-117); Bilirubin,Total 0.5 mg/dl (0.2-1); Total Protein 6.8 gm/dl (6.4-8.2); Troponin I 0.091 ng/ml (0-0.045)
[2020-09-02] MEDS ORDERED: ASPIRIN CHEW 324 MG PO STA (02:42)
--- NOTE | 2020-09-02 03:50 | History & Physical Report ---
Date of Service September 02, 2020 Assessment & Plan (1) Pneumonia due to COVID-19 virus: Disease currently not severe. Patient not hypoxemic. Immunocompromised patient multiple myeloma status post HSCT ongoing chemotherapy Isolated troponin elevation in the setting of stable chronic kidney disease Patient denies chest pain or unusual S OB symptoms. chronic diastolic heart failure (EF 55 to 59% TTE 2019), euvolemic to dry hx cardiac amyloidosis as per records, PAF on Multaq on Coumadin, patient NSR, INR therapeutic nonobstructive CAD as per records hypertension, stable hyperlipidemia on statin Rx DM2 on oral medications, reasonable control as of recent outpatient hemoglobin A1c of 7.19 June 2020 PCU given troponin elevation Supportive management for viral pneumonia for now. Follow troponin TTE if with progression Basal insulin, ISS BG goal [id number], carb count coverage DVT prophylaxis. Coumadin INR goal between 2 and 3 Full code Text document was generated using SupportLocal voice recognition software. It may contain grammatical or spelling errors. Kindly contact undersigned for clarification of any documentation item in question. History of Present Illness Chief Complaint: Fever Primary Care Provider: Dariela Mathias MD History obtained from patient and records. Medical history significant for chronic diastolic heart failure (EF 55 to 59% TTE 2019), cardiac amyloidosis as per records, PAF on Multaq on Coumadin, nonobstructive CAD as per records, hypertension, hyperlipidemia, CRI (baseline creatinine 1.5), DM2 on oral medications, multiple myeloma status post HSCT ongoing chemotherapy, DEBBY on CPAP. Last confinement December 2018 for community-acquired pneumonia. Last week patient noted fever, chills, malaise, fatigue, flulike symptoms. Chronic shortness of breath. No chest pain. No cough symptoms. 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 Outpatient COVID-19 test from last week positive. Supportive management recommended at home. Fever and chills worsening, poor appetite without other symptoms the last few days. Patient brought to ER by . Patient given aspirin for troponin elevation. Medical History as above Surgical History : Vasectomy Family History : Diabetes Personal/Social history : Non-smoker, no EtOH intake, disabled Allergies Allergy/AdvReac Type Severity Reaction Status Date / Time No Known Allergies Allergy Verified 09/02/20 03:14 Home Medications Medication Instructions Recorded Confirmed Type Darzalex 1 dose IV DIRECTED #0 04/17/18 09/02/20 History Multaq 400 mg PO BID 05/16/18 09/02/20 History Velcade 1 dose SUBCUT WK 05/16/18 09/02/20 History acyclovir 400 mg PO BID 05/16/18 09/02/20 History albuterol sulfate [Ventolin HFA] 2 puff INHALATION Q4H PRN 05/16/18 09/02/20 History escitalopram oxalate [Lexapro] 10 mg PO QAM 05/16/18 09/02/20 History immune glob,gamma(IgG) 5 0 g IV .Q4 WEEKS ea 09/20/18 09/02/20 History evjs-euy-ncax-IgA 0 to 50 mcg/mL IV solution warfarin 2.5 mg tablet 2.5 mg PO QPM #30 tab 11/22/18 09/02/20 Rx denosumab [Xgeva] 120 mg SUBCUT .EVERY 3 MONTHS 12/01/19 09/02/20 History gabapentin 300 mg PO TID 12/01/19 09/02/20 History methylprednisolone 20 mg PO UD 12/01/19 09/02/20 History glipizide 10 mg PO QAM 09/02/20 09/02/20 History pantoprazole 20 mg PO DAILY 09/02/20 09/02/20 History potassium chloride 20 meq PO DAILY 09/02/20 09/02/20 History torsemide 40 mg PO DAILY 09/02/20 09/02/20 History Past Med/Surg History Medical History (Updated 09/02/20 @ 10:16 by Angel Delcid MD) Amyloidosis dx 2017; follows with [facility] Atrial fibrillation Chronic diastolic CHF (congestive heart failure) History of depression Multiple myeloma dx 2013; follows with Dr. 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 Mother No problems noted. Social History Smoking Status: Never smoker Hx Alcohol Use: No Hx Substance Use: No Preferred Language: British Communication Ability: Effective Janitorial Tech Required: No Beliefs That Will Affect Care: None marital status details: twice - 3 children in total between the 2 marriages Current Living Situation: Spouse Current Living Situation Comment: lives in [place] current occupational status: disabled current occupation: previously worked at [employer] Feels Safe at Home: Yes Assistive Devices: CPAP and Oxygen - at Night Review of Systems Review of Systems: As per HPI, all 10 systems reviewed, all other ROS negative Physical Exam Physical Exam: GENERAL: Comfortable, no respiratory distress, obese SKIN: Normal color, warm HEENT: [place] palpebral conjunctivae, no ptosis, dry buccal mucosa NECK : Supple, short neck, no tenderness CHEST : CTA, no tenderness HEART : RRR, no obvious murmurs ABDOMEN: Some distention, nontender EXTREMITIES : No LE swelling/tenderness, no other conspicuous deformities noted NEUROLOGIC : Coherent, no facial asymmetry, no other gross focality Results & Data Results & Data ([facility]) Vital Signs (Past 12 Hours) Vital Signs Temp Pulse Pulse Resp BP BP Pulse Ox 09/02/20 03:00 79 20 123/80 97 09/02/20 01:59 81 22 114/68 97 09/02/20 00:35 37.8 C H 87 18 125/80 96 Laboratory Results Laboratory Results WBC 10.14 K/uL (4.8-10.8) 09/02/20 01:35 RBC 4.34 M/uL (4.7-6.1) L 09/02/20 01:35 Hgb 14.4 g/dL (14.0-18.0) 09/02/20 01:35 Hct 42.5 % (42-52) 09/02/20 01:35 MCV 97.9 fL (80-100) 09/02/20 01:35 MCH 33.2 pg (25-34) 09/02/20 01:35 MCHC 33.9 g/dL (32-36) 09/02/20 01:35 RDW Std Deviation 50.6 fL (36.4-46.3) H 09/02/20 01:35 RDW Coeff of Tobi 14.1 % (11.5-14.5) 09/02/20 01:35 Plt Count 154 K/uL (130-400) 09/02/20 01:35 MPV 11.2 fL (7.4-10.4) H 09/02/20 01:35 Immature Gran % (Auto) 0.3 % 09/02/20 01:35 Neut % (Auto) 90.9 % 09/02/20 01:35 Lymph % (Auto) 4.3 % 09/02/20 01:35 [place] % (Auto) 3.8 % 09/02/20 01:35 Eos % (Auto) 0.6 % 09/02/20 01:35 Baso % (Auto) 0.1 % 09/02/20 01:35 Neut # (Auto) 9.21 K/uL (1.4-6.5) H 09/02/20 01:35 Lymph # (Auto) 0.44 K/uL (1.2-3.4) L 09/02/20 01:35 [place] # (Auto) 0.39 K/uL (0.11-0.59) 09/02/20 01:35 Eos # (Auto) 0.06 K/uL (0-0.5) 09/02/20 01:35 Baso # (Auto) 0.01 K/uL (0-0.2) 09/02/20 01:35 Immature Gran # (Auto) 0.03 K/uL (0.00-0.02) H 09/02/20 01:35 PT 29.8 Seconds (9.0-12.0) H 09/02/20 01:35 INR 3.0 (0.9-1.1) H 09/02/20 01:35 Sodium 136 mmol/L (136-145) 09/02/20 01:35 Potassium 3.7 mmol/L (3.5-5.1) 09/02/20 01:35 Chloride 101 mmol/L (98-107) 09/02/20 01:35 Carbon Dioxide 30 mmol/L (21-32) 09/02/20 01:35 Anion Gap 5.0 (3-11) 09/02/20 01:35 BUN 25 mg/dl (7-18) H 09/02/20 01:35 Creatinine 1.54 mg/dl (0.6-1.4) H 09/02/20 01:35 Est Cr Clr Drug Dosing 70.0 ml/min 09/02/20 01:35 Est GFR ( Amer) 60.1 09/02/20 01:35 Est GFR (Non-Af Amer) 51.8 09/02/20 01:35 BUN/Creatinine Ratio 15.9 (10-20) 09/02/20 01:35 Glucose 233 mg/dl (70-99) H 09/02/20 01:35 Lactate 1.5 mmol/L (0.4-2.0) 09/02/20 01:50 Calcium 8.8 mg/dl (8.5-10.1) 09/02/20 01:35 Magnesium 2.0 mg/dl (1.8-2.4) 09/02/20 01:35 Total Bilirubin 0.5 mg/dl (0.2-1) 09/02/20 01:35 Direct Bilirubin < 0.1 mg/dl (0-0.2) 09/02/20 01:35 AST 50 U/L (15-37) H 09/02/20 01:35 ALT 70 U/L (12-78) 09/02/20 01:35 Alkaline Phosphatase 165 U/L (45-117) H 09/02/20 01:35 Troponin I 0.091 ng/ml (0-0.045) H* 09/02/20 01:35 NT-Pro-B Natriuret Pep Cancelled 09/02/20 01:35 Total Protein 6.8 gm/dl (6.4-8.2) 09/02/20 01:35 Albumin 3.2 gm/dl (3.4-5.0) L 09/02/20 01:35 Lipase 143 U/L (73-393) 09/02/20 01:35 Procalcitonin 0.35 ng/ml (0-0.5) 09/02/20 01:35 Urine Color Yellow 09/02/20 01:25 Urine Appearance Clear (Clear) 09/02/20 01:25 Urine pH 5.5 (4.5-7.5) 09/02/20 01:25 Ur Specific [place] 1.019 (1.000-1.030) 09/02/20 01:25 Urine Protein 1+ (Negative) H 09/02/20 01:25 Urine Glucose (UA) 2+ (Negative) H 09/02/20 01:25 Urine Ketones Negative (Negative) 09/02/20 01:25 Urine Blood Negative (Negative) 09/02/20 01:25 Urine Nitrite Negative (Negative) 09/02/20 01:25 Urine Bilirubin Negative (Negative) 09/02/20 01:25 Urine Urobilinogen Negative (Negative) 09/02/20 01:25 Ur Leukocyte Esterase Negative (Negative) 09/02/20 01:25 Urine WBC (Auto) 0 /hpf (0-5) 09/02/20 01:25 Urine RBC (Auto) 0-4 /hpf (0-4) 09/02/20 01:25 U Hyaline Cast (Auto) 0 /lpf (0-5) 09/02/20 01:25 U Epithel Cells (Auto) 10-20 /lpf (0-5) H 09/02/20 01:25 Urine Bacteria (Auto) Negative (Negative) 09/02/20 01:25 Diagnostic Findings Chest x-ray as per my interpretation multifocal pneumonia EKG as per my interpretation : Rate 85, NSR, RAD, septal infarct, T wave abnormalities inferior and lateral leads
[2020-09-02] MEDS ORDERED: INSULIN GLARGINE SOLOSTAR 100 UNITS/ML 3 ML PEN SC STA (04:41)
[2020-09-02] MEDS ORDERED: GLUCAGON FOR INJ 1 MG VIAL SQ PRN (04:41)
[2020-09-02] MEDS ORDERED: traMADol HCL 50 MG TABLET PO PRN (04:41)
[2020-09-02] MEDS ORDERED: GLUCOSE 10 TABS/TUBE PO PRN (04:41)
[2020-09-02] MEDS ORDERED: CARBOHYDRATES FOR HYPOGLYCEMIA PO PRN (04:41)
[2020-09-02] MEDS ORDERED: DEXTROSE 50% 50 ML SYRINGE IV PRN (04:41)
[2020-09-02] MEDS ORDERED: GLUCOSE 40% GEL 15 GM TUBE PO PRN (04:41)
[2020-09-02] MEDS ORDERED: HYDROmorphone INJ 0.5 MG/0.5 ML SYR IV PRN (04:41)
[2020-09-02] MEDS: INSULIN ASPART 100 UNITS/ML 3 ML PEN SC SCH ×4 (06:27→21:34)
--- NOTE | 2020-09-02 06:57 | XRay Report ---
XR chest 1V portable HISTORY: 50 years-old Male SHOB, Covid acute shortness of breath. COVID Positive. COMPARISON: Chest radiograph 12/01/2019 TECHNIQUE: Portable AP view of the chest FINDINGS: Mild cardiomegaly is unchanged. Mild right hemidiaphragmatic elevation. No pneumothorax or large pleu ral effusion. Ill-defined patchy mid and lower lung zone airspace opacities. Bones appear grossly int act. IMPRESSION: Patchy airspace opacities of the mid and lower lung zones are suggestive of multifocal pn eumonia. ACT 112: Negative or not required by law. The above report was generated using voice recognition software. It may contain grammatical, syntax o r spelling errors. Electronically signed by: Daniel Larry M.D. 09/02/2020 6:56 AM
[2020-09-02] MEDS: PANTOprazole 40 MG TAB PO SCH (08:46)
[2020-09-02] MEDS: GABAPENTIN 300 MG CAP PO SCH ×3 (08:46→21:20)
[2020-09-02] MEDS: POTASSIUM CHLORIDE CRTAB 20 MEQ TABCR PO SCH (08:46)
[2020-09-02] MEDS: ESCITALOPRAM OXALATE 10 MG TAB PO SCH (08:46)
[2020-09-02] MEDS: DRONEDARONE HCL 400 MG TAB PO SCH ×2 (08:47→21:20)
[2020-09-02] MEDS: ACYCLOVIR 400 MG TAB PO SCH ×2 (10:35→21:20)
[2020-09-02] MEDS: ACETAMINOPHEN 325 MG TAB PO PRN ×3 (11:35→19:55)
[2020-09-02] MEDS ORDERED: ONDANSETRON INJ 2 MG/ML 2 ML VIAL IV STA (12:22)
[2020-09-02] MEDS: ONDANSETRON INJ 2 MG/ML 2 ML VIAL ONE ×2 (12:30→12:34)
--- NOTE | 2020-09-02 16:15 | Electrocardiogram Report ---
Test Reason : Blood Pressure : / mmHG Vent. Rate : 084 BPM Atrial Rate : 084 BPM P-R Int : 152 ms QRS Dur : 078 ms QT Int : 356 ms P-R-T Axes : 056 105 -56 degrees QTc Int : 420 ms Normal sinus rhythm Possible Left atrial enlargement Rightward axis Septal infarct , age undetermined T wave abnormality, consider inferior ischemia Abnormal ECG When compared with ECG of 01-DEC-2019 08:55, No significant change was found Confirmed by Mert Oden ([id number]) on 09/02/2020 4:15:18 PM Referred By: REFERRED SELF Confirmed By:Mert Oden
[2020-09-02] MEDS: ONDANSETRON INJ 2 MG/ML 2 ML VIAL IV PRN (17:01)
[2020-09-02] MEDS: NSS + 20MEQ KCL 20 MEQ/1,000 ML BAG IV SCH (17:36)
--- NOTE | 2020-09-02 18:42 | Hospitalist Progress Note ---
Date of Service September 02, 2020 Assessment & Plan (1) Pneumonia due to COVID-19 virus: (1) Pneumonia due to COVID-19 virus: Immunocompromised patient multiple myeloma status post HSCT ongoing chemotherapy Diagnosed with Covid last week but started to have worsening symptoms over the weekend including cough, fever, weakness, nausea and diarrhea Fortunately patient is saturating 96% on room air Chest x-ray showing bilateral pneumonia Monitor O2 sats closely, start remdesivir, Decadron and plasma if oxygen saturation below 94% On Coumadin chronically for A. fib, INR 3.0 Consulted spirometry, Mucinex ordered Isolated troponin elevation in the setting of stable chronic kidney disease Nonobstructive CAD as per records Troponin 0 0.09 --> 0.08 EKG no signs of acute ischemia or infarct No chest pain, or any cardiac symptom Chronic diastolic heart failure (EF 55 to 59% TTE 2019) Patient on the dry side with diarrhea and poor intake Hold torsemide History of cardiac amyloidosis as per records PAF on Multaq on Coumadin, patient NSR, INR 2.0, hold Coumadin Repeat INR tomorrow Resume Coumadin accordingly hypertension, stable hyperlipidemia on statin Rx DM2 on Glipizide, reasonable control as of recent outpatient hemoglobin A1c of 7.19 June 2020 ISS DVT prophylaxis. INR 3.0 Coumadin held Resume Accordingly Full code Disposition Discharge to home when medically stable Admission and Anticipated Discharge Date Admission Date: September 02, 2020 Subjective Follow-up for COVID-19 pneumonia, etc. Seen sitting up at the edge of the bed, not in distress 96% on room air Somewhat weak States he feels slightly better compared to earlier today Still has mild cough, with intermittent nausea, weakness With 2-3 episodes of diarrhea today Denies abdominal pain No Other symptoms Review of Systems Review of Systems: All systems reviewed & are unremarkable except as noted in Subjective Physical Exam Physical Exam: General- oriented x 3, not in distress, speaks in sentences with no effort or accessory muscle use Head- atraumatic Eyes- PERRL, EOMI, anicteric ENT- oropharynx clear Neck- supple, no JVD, no adenopathy, no thyromegaly; carotids +2/2, no bruits appreciated Lungs-mild rhonchi at the bases, good air entry bilaterally no wheezing Heart- normal rate, regular rhythm; no murmur, no gallop, no rub appreciated Abdomen- normal bowel sounds, nondistended, soft, nontender, no masses or hepatosplenomegaly Extremities- no pretibial edema, no calf tenderness; peripheral pulses intact Neuro- alert, oriented x 3; CN 2-12 grossly intact; motor 5/5 bilaterally;sensation 100% on all extremities; no other gross focal neurologic deficits Skin- warm & dry Results & Data Results & Data ([facility]) Vital Signs (Past 12 Hours) Vital Signs Temp Pulse Pulse Resp BP BP Pulse Ox 09/02/20 16:20 38.1 C H 86 14 120/62 95 09/02/20 11:40 37.6 C H 83 21 144/96 H 97 09/02/20 10:35 37.1 C 75 15 125/80 97 09/02/20 10:00 76 17 131/80 98 09/02/20 08:06 99 09/02/20 08:00 71 23 126/79 97 09/02/20 07:00 71 22 113/75 96 Laboratory Results Laboratory Results - last 24 hr 09/02/20 09/02/20 09/02/20 01:25 01:35 01:35 WBC 10.14 RBC 4.34 L Hgb 14.4 Hct 42.5 MCV 97.9 MCH 33.2 MCHC 33.9 RDW Std Deviation 50.6 H RDW Coeff of Tobi 14.1 Plt Count 154 MPV 11.2 H Immature Gran % (Auto) 0.3 Neut % (Auto) 90.9 Lymph % (Auto) 4.3 Burt % (Auto) 3.8 Eos % (Auto) 0.6 Baso % (Auto) 0.1 Neut # (Auto) 9.21 H Lymph # (Auto) 0.44 L Burt # (Auto) 0.39 Eos # (Auto) 0.06 Baso # (Auto) 0.01 Immature Gran # (Auto) 0.03 H PT INR Sodium Potassium Chloride Carbon Dioxide Anion Gap BUN Creatinine Est Cr Clr Drug Dosing Est GFR ( Amer) Est GFR (Non-Af Amer) BUN/Creatinine Ratio Glucose POC Glucose Lactate Calcium Magnesium Total Bilirubin Direct Bilirubin AST ALT Alkaline Phosphatase Troponin I NT-Pro-B Natriuret Pep Total Protein Albumin Lipase Procalcitonin 0.35 Urine Color Yellow Urine Appearance Clear Urine pH 5.5 Ur Specific Bim 1.019 Urine Protein 1+ H Urine Glucose (UA) 2+ H Urine Ketones Negative Urine Blood Negative Urine Nitrite Negative Urine Bilirubin Negative Urine Urobilinogen Negative Ur Leukocyte Esterase Negative Urine WBC (Auto) 0 Urine RBC (Auto) 0-4 U Hyaline Cast (Auto) 0 U Epithel Cells (Auto) 10-20 H Urine Bacteria (Auto) Negative 09/02/20 09/02/20 09/02/20 01:35 01:35 01:50 WBC RBC Hgb Hct MCV MCH MCHC RDW Std Deviation RDW Coeff of Tobi Plt Count MPV Immature Gran % (Auto) Neut % (Auto) Lymph % (Auto) Burt % (Auto) Eos % (Auto) Baso % (Auto) Neut # (Auto) Lymph # (Auto) Burt # (Auto) Eos # (Auto) Baso # (Auto) Immature Gran # (Auto) PT 29.8 H INR 3.0 H Sodium 136 Potassium 3.7 Chloride 101 Carbon Dioxide 30 Anion Gap 5.0 BUN 25 H Creatinine 1.54 H Est Cr Clr Drug Dosing 70.0 Est GFR ( Amer) 60.1 Est GFR (Non-Af Amer) 51.8 BUN/Creatinine Ratio 15.9 Glucose 233 H POC Glucose Lactate 1.5 Calcium 8.8 Magnesium 2.0 Total Bilirubin 0.5 Direct Bilirubin < 0.1 AST 50 H ALT 70 Alkaline Phosphatase 165 H Troponin I 0.091 H* NT-Pro-B Natriuret Pep Cancelled Total Protein 6.8 Albumin 3.2 L Lipase 143 Procalcitonin Urine Color Urine Appearance Urine pH Ur Specific Bim Urine Protein Urine Glucose (UA) Urine Ketones Urine Blood Urine Nitrite Urine Bilirubin Urine Urobilinogen Ur Leukocyte Esterase Urine WBC (Auto) Urine RBC (Auto) U Hyaline Cast (Auto) U Epithel Cells (Auto) Urine Bacteria (Auto) 09/02/20 09/02/20 09/02/20 04:22 07:20 12:06 WBC RBC Hgb Hct MCV MCH MCHC RDW Std Deviation RDW Coeff of Tobi Plt Count MPV Immature Gran % (Auto) Neut % (Auto) Lymph % (Auto) Burt % (Auto) Eos % (Auto) Baso % (Auto) Neut # (Auto) Lymph # (Auto) Burt # (Auto) Eos # (Auto) Baso # (Auto) Immature Gran # (Auto) PT INR Sodium Potassium Chloride Carbon Dioxide Anion Gap BUN Creatinine Est Cr Clr Drug Dosing Est GFR ( Amer) Est GFR (Non-Af Amer) BUN/Creatinine Ratio Glucose POC Glucose 143 H 140 H Lactate Calcium Magnesium Total Bilirubin Direct Bilirubin AST ALT Alkaline Phosphatase Troponin I 0.082 H* NT-Pro-B Natriuret Pep Total Protein Albumin Lipase Procalcitonin Urine Color Urine Appearance Urine pH Ur Specific Bim Urine Protein Urine Glucose (UA) Urine Ketones Urine Blood Urine Nitrite Urine Bilirubin Urine Urobilinogen Ur Leukocyte Esterase Urine WBC (Auto) Urine RBC (Auto) U Hyaline Cast (Auto) U Epithel Cells (Auto) Urine Bacteria (Auto) 09/02/20 16:47 WBC RBC Hgb Hct MCV MCH MCHC RDW Std Deviation RDW Coeff of Tobi Plt Count MPV Immature Gran % (Auto) Neut % (Auto) Lymph % (Auto) Burt % (Auto) Eos % (Auto) Baso % (Auto) Neut # (Auto) Lymph # (Auto) Burt # (Auto) Eos # (Auto) Baso # (Auto) Immature Gran # (Auto) PT INR Sodium Potassium Chloride Carbon Dioxide Anion Gap BUN Creatinine Est Cr Clr Drug Dosing Est GFR ( Amer) Est GFR (Non-Af Amer) BUN/Creatinine Ratio Glucose POC Glucose 132 H Lactate Calcium Magnesium Total Bilirubin Direct Bilirubin AST ALT Alkaline Phosphatase Troponin I NT-Pro-B Natriuret Pep Total Protein Albumin Lipase Procalcitonin Urine Color Urine Appearance Urine pH Ur Specific Bim Urine Protein Urine Glucose (UA) Urine Ketones Urine Blood Urine Nitrite Urine Bilirubin Urine Urobilinogen Ur Leukocyte Esterase Urine WBC (Auto) Urine RBC (Auto) U Hyaline Cast (Auto) U Epithel Cells (Auto) Urine Bacteria (Auto)
[2020-09-02] MEDS: guaiFENesin 600 MG TABCR PO SCH (20:02)
[2020-09-03] MEDS: ONDANSETRON INJ 2 MG/ML 2 ML VIAL IV PRN ×2 (01:21→10:00)
[2020-09-03] MEDS: ACETAMINOPHEN 325 MG TAB PO PRN ×2 (01:21→11:20)
[2020-09-03] MEDS: NSS + 20MEQ KCL 20 MEQ/1,000 ML BAG IV SCH ×2 (05:04→10:42)
[2020-09-03 07:25] LABS: INR 2.2 (0.9-1.1); Prothrombin Time 21.9 Seconds (9.0-12.0)
[2020-09-03 07:39] LABS: BUN Creatinine Ratio 15.8 (10-20); Calcium 8.1 mg/dl (8.5-10.1); Creatinine Clr Calc Pharmacy 77.9 ml/min; Est GFR (Non-African American) 58.7; Potassium 3.7 mmol/L (3.5-5.1)
[2020-09-03 09:23] LABS: Eosinophils # (auto) 0.05 K/uL (0-0.5); Eosinophils % (auto) 0.6 %; Hematocrit (blood only) 42.7 % (42-52); Hemoglobin 14.4 g/dL (14.0-18.0); Immature Granulocytes # (auto) 0.01 K/uL (0.00-0.02); Immature Granulocytes % (auto) 0.1 %; Lymphocytes # (auto) 0.43 K/uL (1.2-3.4); Mean Corpuscular Hemoglobin 33.5 pg (25-34); Mean Corpuscular Hgb Conc 33.7 g/dL (32-36); Mean Corpuscular Volume 99.3 fL (80-100); Mean Platelet Volume 11.1 fL (7.4-10.4); Monocytes # (auto) 0.43 K/uL (0.11-0.59); Neutrophils # (auto) 7.62 K/uL (1.4-6.5); Neutrophils % (auto) 89.3 %; Platelet Count 166 K/uL (130-400); RDW Coefficient of Variation 14.5 % (11.5-14.5); RDW Standard Deviation 52.2 fL (36.4-46.3); White Blood Count 8.54 K/uL (4.8-10.8)
[2020-09-03] MEDS: GABAPENTIN 300 MG CAP PO SCH ×3 (10:01→20:49)
[2020-09-03] MEDS: DRONEDARONE HCL 400 MG TAB PO SCH ×2 (10:02→20:49)
[2020-09-03] MEDS: ESCITALOPRAM OXALATE 10 MG TAB PO SCH (10:02)
[2020-09-03] MEDS: ACYCLOVIR 400 MG TAB PO SCH ×2 (10:02→20:49)
[2020-09-03] MEDS: POTASSIUM CHLORIDE CRTAB 20 MEQ TABCR PO SCH (10:03)
[2020-09-03] MEDS: PANTOprazole 40 MG TAB PO SCH (10:03)
[2020-09-03] MEDS: guaiFENesin 600 MG TABCR PO SCH ×2 (10:03→21:28)
[2020-09-03] MEDS: INSULIN ASPART 100 UNITS/ML 3 ML PEN SC SCH ×4 (10:06→22:31)
[2020-09-03] MEDS: INSULIN GLARGINE SOLOSTAR 100 UNITS/ML 3 ML PEN SC SCH (10:08)
[2020-09-03] MEDS ORDERED: PROMETHAZINE HCL 12.5 MG in SODIUM CHLORIDE 0.9% 50 ML IV PRN (11:36)
[2020-09-03] MEDS ORDERED: LOPERAMIDE HCL 2 MG CAP PO PRN (11:36)
[2020-09-03] MEDS ORDERED: PIPERACILL/TAZOBAC CONSULT ACTIVE PRN (12:31)
[2020-09-03] MEDS ORDERED: PIPERACILLIN/TAZOBACTAM 4.5 GM in DEXTROSE 5% 100 ML IV ONE (12:45)
[2020-09-03] MEDS ORDERED: PIPERACILLIN/TAZOBACTAM 3.375 GM in DEXTROSE 5% 100 ML IV SCH (12:45)
[2020-09-03] MEDS: LACTOBACILLUS ACIDOPHILUS 1 GM PACK PO SCH ×2 (14:24→18:04)
--- NOTE | 2020-09-03 15:27 | CT Scan Report ---
CT OF THE ABDOMEN AND PELVIS WITHOUT CONTRAST CLINICAL HISTORY: Nausea /COVID 19 /eval for colitis. History of multiple myeloma. COMPARISON STUDY: CT of the abdomen and pelvis April 19, 2018. Right upper quadrant ultrasound Augus 2017. TECHNIQUE: Axial images of the abdomen and pelvis were obtained without IV contrast. Images were revi ewed in the axial, sagittal, and coronal planes. Automated exposure control was utilized for the natalie dy. A dose lowering technique was utilized adhering to the principles of ALARA. FINDINGS: Visualized portions of the lower chest demonstrate moderate cardiomegaly. There is a small right pleural effusion. Multifocal groundglass opacities are noted within the lower lungs. No pneumat osis, free air or portal venous gas is present. Evaluation of the abdomen and pelvis is suboptimal on this unenhanced examination. Unenhanced images of the liver, adrenal glands and pancreas are unremar kable. Mild splenomegaly is unchanged. Marked left renal atrophy is unchanged. Right renal hypertroph y is noted. There is no hydronephrosis. There is a small amount of ascites within the abdomen and pel vis. Mild pericholecystic infiltration is noted with possible gallbladder wall thickening. However, t his was shown on prior exam. The gallbladder is mildly distended. These findings do not suggest acute cholecystitis. There is no evidence for a bowel obstruction. The appendix is normal. No bowel wall t hickening is identified on this unenhanced examination. There is mild bladder wall thickening. The pr eviously described central mesenteric mass on CT of April 19, 2018 has markedly decreased in size. Th ere is minimal residual ill-defined soft tissue, predominantly linear in configuration. Numerous lyti c skeletal lesions are unchanged. No new lesions are identified. There is no acute pathologic fractur e within visualized skeletal structures. IMPRESSION: 1. No evidence for a bowel obstruction. No bowel wall thickening on unenhanced exam. 2. Multifocal groundglass opacities within the lower lungs suggestive of multifocal pneumonia. 3. Small right pleural effusion. 4. Small amount of ascites within the abdomen and pelvis. 5. Marked decrease in size of the central mesenteric mass shown on CT of April 19, 2020. 6. No significant change in lytic skeletal lesion since prior CT. This is consistent with the history of multiple myeloma. ACT 112: Negative or not required by law. Electronically signed by: Jamal River M.D. 09/03/2020 3:24 PM
[2020-09-03] MEDS: WARFARIN SOD 2.5 MG TAB PO SCH (16:19)
[2020-09-03] MEDS: ACETAMINOPHEN 1,000 MG/100 ML VIAL IV SCH (16:21)
[2020-09-03] MEDS: PIPERACILLIN/TAZOBACTAM 4.5 GM in DEXTROSE 5% 100 ML IV SCH (18:04)
[2020-09-03 20:47] LABS: Cdiff Antigen Negative; Cdiff Toxin A+B Negative Cdiff Toxin (Negative)
--- NOTE | 2020-09-03 21:04 | Hospitalist Progress Note ---
Date of Service September 03, 2020 Assessment & Plan (1) Pneumonia due to COVID-19 virus: (1) Pneumonia due to COVID-19 virus: Immunocompromised patient multiple myeloma status post HSCT ongoing chemotherapy Diagnosed with Covid last week but started to have worsening symptoms over the weekend including cough, fever, weakness, nausea and diarrhea Fortunately patient is saturating 96% on room air Chest x-ray showing bilateral pneumonia Monitor O2 sats closely, start remdesivir, Decadron and plasma if oxygen saturation below 94% On Coumadin chronically for A. fib, INR 3.0 NAUSEA /ABDOMINAL PAIN /DIARRHEA due to covid [address] abdomen/pelvis no pathology stool x diff negative cont symptomatic management advance diet as tolerated Isolated troponin elevation in the setting of stable chronic kidney disease Nonobstructive CAD as per records Troponin 0 0.09 --> 0.08 EKG no signs of acute ischemia or infarct No chest pain, or any cardiac symptom Chronic diastolic heart failure (EF 55 to 59% TTE 2019) Patient on the dry side with diarrhea and poor intake Hold torsemide History of cardiac amyloidosis as per records PAF on Multaq on Coumadin, patient NSR, hypertension, stable hyperlipidemia on statin Rx DM2 on Glipizide, reasonable control as of recent outpatient hemoglobin A1c of 7.19 June 2020 ISS DVT prophylaxis. on coumadin Full code Disposition Discharge to home when medically stable update given to pt's over phone Admission and Anticipated Discharge Date Admission Date: September 02, 2020 Subjective FOLLOW UP VISIT DUE TO COVID 19 PNEUMONIA : was nauseous in am symptoms improved after IV Zofran and Phenergan no complain of abdominal pain ongoing diarrhea diet downgraded to clears -due to nausea -tolerating well no complain of sob or cough remains in room air Review of Systems Review of Systems: All systems reviewed & are unremarkable except as noted in HPI & below Physical Exam Constitutional: WD/WN, vitals as above Eyes: PERRL, conjunctivae normal, anicteric sclerae ENMT: external ear and nose normal, oropharynx normal Neck: trachea midline, no thyromegaly Respiratory: normal respiratory effort, lungs clear to auscultation Cardiovascular: RRR, no murmur, no edema Gastrointestinal (Abdomen): normal bowel sounds, soft, nontender, no hepatosplenomegaly Musculoskeletal: no cyanosis or clubbing, extremities motor strength 5/5 Skin: no rashes, warm and dry Neurologic: PERRL, EOMI, accommodation nl, no face palsy, no dysarthria Psychiatric: A+Ox3, euthymic affect Results & Data Results & Data ([facility]) Vital Signs (Past 12 Hours) Vital Signs Temp Pulse Pulse Resp BP BP Pulse Ox 09/03/20 19:09 36.5 C 65 17 126/83 99 09/03/20 18:26 78 09/03/20 18:21 71 09/03/20 15:33 36.7 C 72 20 122/73 98 09/03/20 13:03 37.7 C H 09/03/20 11:36 37.3 C 75 22 134/90 94 09/03/20 11:19 37.8 C H 09/03/20 10:48 37.2 C
[2020-09-04] MEDS: ACETAMINOPHEN 1,000 MG/100 ML VIAL IV SCH ×3 (00:11→16:23)
[2020-09-04] MEDS: PIPERACILLIN/TAZOBACTAM 4.5 GM in DEXTROSE 5% 100 ML IV SCH ×3 (01:56→17:49)
[2020-09-04] MEDS: PROCHLORPERAZINE 10 MG in SYRINGE 8 ML IV PRN (01:56)
[2020-09-04 07:10] LABS: BUN Creatinine Ratio 16.3 (10-20); Calcium 8.5 mg/dl (8.5-10.1); Est GFR (African American) 66.3; Est GFR (Non-African American) 57.2; Potassium 3.6 mmol/L (3.5-5.1)
[2020-09-04] MEDS: guaiFENesin 600 MG TABCR PO SCH ×2 (07:51→20:20)
[2020-09-04] MEDS: PANTOprazole 40 MG TAB PO SCH (07:52)
[2020-09-04] MEDS: POTASSIUM CHLORIDE CRTAB 20 MEQ TABCR PO SCH (07:52)
[2020-09-04] MEDS: DRONEDARONE HCL 400 MG TAB PO SCH ×2 (07:52→20:22)
[2020-09-04] MEDS: GABAPENTIN 300 MG CAP PO SCH ×3 (07:53→20:20)
[2020-09-04] MEDS: ACYCLOVIR 400 MG TAB PO SCH ×2 (07:54→20:22)
[2020-09-04] MEDS: LACTOBACILLUS ACIDOPHILUS 1 GM PACK PO SCH ×3 (07:54→16:28)
[2020-09-04] MEDS: ESCITALOPRAM OXALATE 10 MG TAB PO SCH (07:54)
[2020-09-04] MEDS: INSULIN GLARGINE SOLOSTAR 100 UNITS/ML 3 ML PEN SC SCH (09:04)
[2020-09-04] MEDS: INSULIN ASPART 100 UNITS/ML 3 ML PEN SC SCH ×4 (09:05→21:23)
[2020-09-04] MEDS: WARFARIN SOD 2.5 MG TAB PO SCH (16:27)
--- NOTE | 2020-09-04 18:05 | Hospitalist Progress Note ---
Date of Service September 04, 2020 Assessment & Plan (1) Pneumonia due to COVID-19 virus: (1) Pneumonia due to COVID-19 virus: Clinically improved, no cough shortness of breath, no fever or chills Diagnosed with Covid last week but started to have worsening symptoms over the weekend including cough, fever, weakness, nausea and diarrhea patient is saturating 96% on room air, did not require any supplemental oxygen Admission chest x-ray : Patchy airspace opacities of the mid and lower lung zones are suggestive of multifocal pneumonia. Patient was initially treated with empiric antibiotic IV Zosyn As patient was significantly immunocompromised multiple myeloma status post HSCT(hemopoietic stem cell /bone marrow transplantation) ongoing chemotherapy Clinical evidence of ongoing bacterial infection, no fever or chills normal white count, no cough symptoms Zosyn discontinued As likelihood of pulmonary thromboembolic event/PE: As patient is on Coumadin chronically INR therapeutic No hypoxic evidence on admission and during hospital stay NAUSEA /ABDOMINAL PAIN /DIARRHEA due to covid 19 infection GI symptom has resolved diarrhea has resolved , no nausea or abdominal pain CT abdomen/pelvis : No acute no pathology /no sign of infection or inflammation, no bowel wall thickening, no evidence of bowel obstruction. Stool C. difficile toxin negative, antigen positive-digestive of prior C. difficile /no active infection, does not need to be treated with antibiotic , patient reports of significant improvement of nausea episode, with as needed Zofran Nausea or abdominal discomfort today tolerating solid diet No loose bowel movement for last 24 hours Isolated troponin elevation in the setting of stable chronic kidney disease Nonobstructive CAD as per records Troponin 0 0.09 --> 0.08 Possible secondary to acute illness, no chief complaint of chest pain shortness of breath or dyspnea on exertion EKG no signs of acute ischemia or infarct No chest pain, or any cardiac symptom No further cardiac work-up needed Chronic diastolic heart failure (EF 55 to 59% TTE 2019) Stable volume status, resume torsemide History of cardiac amyloidosis as per records PAF on Multaq for rate and rhythm control on Coumadin, patient NSR, hypertension, stable hyperlipidemia on statin Rx DM2 on Glipizide, reasonable control as of recent outpatient hemoglobin A1c of 7.19 June 2020 ISS Glipizide will be resumed on discharge DVT prophylaxis. on coumadin Full code Disposition discharge home in am Admission and Anticipated Discharge Date Admission Date: September 02, 2020 Subjective FOLLOW UP VISIT DUE TO COVID 19 PNEUMONIA/nausea/diarrhea-due to COVID-19 infection. Seen at bedside, did not had any cough or respiratory symptoms for last 48 hours, no fever or chills vitals been stable nausea has resolved , no complain of abdominal pain , GI symptoms with diarrhea has resolved Diet advanced to solid tolerating well appetite and energy has improved Review of Systems Review of Systems: All systems reviewed & are unremarkable except as noted in HPI & below Constitutional: no fever and no chills Respiratory: no cough and no dyspnea Gastrointestinal: no abdominal pain, no nausea, no vomiting and no diarrhea/loose stools Physical Exam Constitutional: WD/WN, vitals as above Eyes: PERRL, conjunctivae normal, anicteric sclerae ENMT: external ear and nose normal, oropharynx normal Neck: trachea midline, no thyromegaly Respiratory: normal respiratory effort, lungs clear to auscultation Cardiovascular: RRR, no murmur, no edema Gastrointestinal (Abdomen): normal bowel sounds, soft, nontender, no hepatosplenomegaly Musculoskeletal: no cyanosis or clubbing, extremities motor strength 5/5 Skin: no rashes, warm and dry Neurologic: PERRL, EOMI, accommodation nl, no face palsy, no dysarthria Psychiatric: A+Ox3, euthymic affect Results & Data Results & Data ([facility]) Vital Signs (Past 12 Hours) Vital Signs Temp Pulse Pulse Resp BP BP Pulse Ox 09/04/20 17:57 80 09/04/20 15:48 36.6 C 78 21 119/80 98 09/04/20 11:37 36.9 C 71 20 126/81 98 09/04/20 07:33 38.1 C H 85 20 110/66 91 09/04/20 07:11 97 H 09/04/20 06:50 36.6 C 94
[2020-09-05] MEDS ORDERED: ONDANSETRON 4 MG OD TAB PO SCH
[2020-09-05 03:59] VITALS: TEMP 98.4
[2020-09-05] MEDS ORDERED: ACETAMINOPHEN 325 MG TAB PO PRN (05:17)
[2020-09-05] MEDS: PROCHLORPERAZINE 10 MG in SYRINGE 8 ML IV PRN (05:54)
[2020-09-05 06:50] LABS: INR 2.4 (0.9-1.1)
[2020-09-05 08:23] VITALS: PULSE 67; O2SAT 96
[2020-09-05] MEDS: INSULIN ASPART 100 UNITS/ML 3 ML PEN SC SCH (09:00)
[2020-09-05] MEDS: LACTOBACILLUS ACIDOPHILUS 1 GM PACK PO SCH (09:01)
[2020-09-05] MEDS: POTASSIUM CHLORIDE CRTAB 20 MEQ TABCR PO SCH (09:04)
[2020-09-05] MEDS: ESCITALOPRAM OXALATE 10 MG TAB PO SCH (09:05)
[2020-09-05] MEDS: guaiFENesin 600 MG TABCR PO SCH (09:05)
[2020-09-05] MEDS: INSULIN GLARGINE SOLOSTAR 100 UNITS/ML 3 ML PEN SC SCH (09:05)
[2020-09-05] MEDS: DRONEDARONE HCL 400 MG TAB PO SCH (09:06)
[2020-09-05] MEDS: GABAPENTIN 300 MG CAP PO SCH (09:06)
[2020-09-05] MEDS: PANTOprazole 40 MG TAB PO SCH (09:07)
[2020-09-05] MEDS: ACYCLOVIR 400 MG TAB PO SCH (09:07)
--- NOTE | 2020-09-05 10:19 | Discharge Summary ---
Date of Service September 05, 2020 Admission HPI Per Admitting Provider History obtained from patient and records. Medical history significant for chronic diastolic heart failure (EF 55 to 59% TTE 2019), cardiac amyloidosis as per records, PAF on Multaq on Coumadin, nonobstructive CAD as per records, hypertension, hyperlipidemia, CRI (baseline creatinine 1.5), DM2 on oral medications, multiple myeloma status post HSCT ongoing chemotherapy, DEBBY on CPAP. Last confinement December 2018 for community-acquired pneumonia. Last week patient noted fever, chills, malaise, fatigue, flulike symptoms. Chronic shortness of breath. No chest pain. No cough symptoms. 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 Outpatient COVID-19 test from last week positive. Supportive management recommended at home. Fever and chills worsening, poor appetite without other symptoms the last few days. Patient brought to ER by . Patient given aspirin for troponin elevation. Medical History as above Surgical History : Vasectomy Family History : Diabetes Personal/Social history : Non-smoker, no EtOH intake, disabled Principal Diagnosis COVID-19 pneumonia Abdominal pain, nausea vomiting diarrhea secondary to COVID-19 illness, resolved History of multiple myeloma Discharge Exam Constitutional WD/WN, vitals as above Eyes PERRL, conjunctivae normal, anicteric sclerae ENMT external ear and nose normal, oropharynx normal Neck trachea midline, no thyromegaly Respiratory normal respiratory effort, lungs clear to auscultation Cardiovascular RRR, no murmur, no edema Gastrointestinal (Abdomen) normal bowel sounds, soft, nontender, no hepatosplenomegaly Musculoskeletal no cyanosis or clubbing, extremities motor strength 5/5 Skin no rashes, warm and dry Neurologic PERRL, EOMI, accommodation nl, no face palsy, no dysarthria Psychiatric A+Ox3, euthymic affect Discharge Data Allergies Allergy/AdvReac Type Severity Reaction Status Date / Time No Known Allergies Allergy Verified 09/02/20 03:14 Consultations 09/02/20 02:42 ED Decision to Admit Stat Ordered Studies 09/03/20 12:07 CT abd pelvis wo con Routine Hospital Course (1) Pneumonia due to COVID-19 virus: (1) Pneumonia due to COVID-19 virus: Clinically improved, no cough shortness of breath, no fever or chills Diagnosed with Covid last week but started to have worsening symptoms over the weekend including cough, fever, weakness, nausea and diarrhea patient is saturating 96% on room air, did not require any supplemental oxygen Admission chest x-ray : Patchy airspace opacities of the mid and lower lung zones are suggestive of multifocal pneumonia. Patient was initially treated with empiric antibiotic IV Zosyn As patient was significantly immunocompromised multiple myeloma status post HSCT(hemopoietic stem cell /bone marrow transplantation) ongoing chemotherapy Clinical evidence of ongoing bacterial infection, no fever or chills normal white count, no cough symptoms Zosyn discontinued As likelihood of pulmonary thromboembolic event/PE: As patient is on Coumadin chronically INR THERAPEUTIC No hypoxic evidence on admission and during hospital stay 09/05/2020: Had uneventful night, no new symptoms tolerating diet, no cough no fever or chills shortness of breath or dyspnea on exertion Patient is stable to be discharged home today NAUSEA /ABDOMINAL PAIN /DIARRHEA due to covid 19 infection GI symptom has resolved diarrhea has resolved , no nausea or abdominal pain CT abdomen/pelvis : No acute no pathology /no sign of infection or inflammation, no bowel wall thickening, no evidence of bowel obstruction. Stool C. difficile toxin negative, antigen positive-digestive of prior C. difficile /no active infection, does not need to be treated with antibiotic , patient reports of significant improvement of nausea episode, with as needed Zofran Nausea or abdominal discomfort today tolerating solid diet No loose bowel movement for last 24 hours Isolated troponin elevation in the setting of stable chronic kidney disease Nonobstructive CAD as per records Troponin 0 0.09 --> 0.08 Possible secondary to acute illness, no chief complaint of chest pain shortness of breath or dyspnea on exertion EKG no signs of acute ischemia or infarct No chest pain, or any cardiac symptom No further cardiac work-up needed Chronic diastolic heart failure (EF 55 to 59% TTE 2019) Stable volume status, continue torsemide History of cardiac amyloidosis as per records PAF on Multaq for rate and rhythm control on Coumadin, patient NSR, hypertension, stable hyperlipidemia on statin Rx DM2 on Glipizide, reasonable control as of recent outpatient hemoglobin A1c of 7.19 June 2020 ISS Glipizide will be resumed on discharge DVT prophylaxis. on coumadin : INR therapeutic Full code Disposition Patient is discharged home today Total Time Total Time Spent Total Time Spent (In Minutes): Approximately 35 minutes Total Time Includes: Discharge Planning, Medication Reconciliation and Other (Discussing discharge planning with patient's family.) Discharge Plan Discharge Items Patient Disposition: Home - Self-Care Reason For Visit: COVID ILLNESS, TROP ELEV Discharge Diagnosis: COVID-19 pneumonia Abdominal pain, nausea vomiting diarrhea secondary to COVID-19 illness, resolved History of multiple myeloma Activity: Resume your previous activity Non-emergency contact: Primary Care Provider Call non-emergency contact if: you have any medication questions Follow-up/Referrals: Dariela Billingsley MD [Primary Care Provider] - (Hospital follow-up with Dr. Jerardo Mathias in 1 week) Diet: Regular Ambulatory Orders: Basic Metabolic Panel (Routine) Timeframe: 1 Week Location: Determined by Patient Ordered By: Margarette Weller Attending Provider Instructions: Hospital follow-up with your family physician in a week, office will call with appointment. Please continue to take [id number] probiotics for the next 2-3 weeks. Keep yourself hydrated, drink plenty of fluids Return to ER or contact your family physician with any recurrence of symptoms: Fever chills cough abdominal pain diarrhea or nausea Lab work: Basic metabolic panel with your next physician visit to assess kidney function, as you were found to dehydrated on admission Avoid taking high-dose aspirin, Aleve, Advil, ibuprofen, naproxen Motrin, all lrrb-fes-elllzpl pain or fever relieving meds from NSAIDs group of drug-can cause worsening of your kidney function. Please follow the instruction for COVID-19 isolation as below. [employer] Employee [employer] Provider Instructions: Home Isolation COVID-19 Instructions The following information about Home Isolation is from the CDC Website: https://www.cdc.gov/coronavirus/2019-ncov/hcp/btvokwwc-mkhwnrv-wljxhl.html Stay home except to get medical care People who are mildly ill with COVID-19 are able to isolate at home during their illness. You should restrict activities outside your home, except for getting medical care. Do not go to work, school, or public areas. Avoid using public transportation, ride-sharing, or taxis. Separate yourself from other people and animals in your home People: As much as possible, you should stay in a specific room and away from other people in your home. Also, you should use a separate bathroom, if available. Animals: You should restrict contact with pets and other animals while you are sick with COVID-19, just like you would around other people. Although there have not been reports of pets or other animals becoming sick with COVID-19, it is still recommended that people sick with COVID-19 limit contact with animals until more information is known about the virus. When possible, have another member of your household care for your animals while you are sick. If you are sick with COVID-19, avoid contact with your pet, including petting, snuggling, being kissed or licked, and sharing food. If you must care for your pet or be around animals while you are sick, wash your hands before and after you interact with pets and wear a face mask. Call ahead before visiting your doctor If you have a medical appointment, call the healthcare provider and tell them that you have or may have COVID-19. This will help the healthcare providers office take steps to keep other people from getting infected or exposed. Wear a face mask You should wear a face mask when you are around other people (e.g., sharing a room or vehicle) or pets and before you enter a healthcare providers office. If you are not able to wear a face mask (for example, because it causes trouble breathing), then people who live with you should not stay in the same room with you, or they should wear a face mask if they enter your room. Cover your coughs and sneezes Cover your mouth and nose with a tissue when you cough or sneeze. Throw used tissues in a lined trash can. Immediately wash your hands with soap and water for at least 20 seconds or, if soap and water are not available, clean your hands with an alcohol-based hand optical effects layout person that contains at least 60% alcohol. Clean your hands often Wash your hands often with soap and water for at least 20 seconds, especially after blowing your nose, coughing, or sneezing; going to the bathroom; and before eating or preparing food. If soap and water are not readily available, use an alcohol-based hand optical effects layout person with at least 60% alcohol, covering all surfaces of your hands and rubbing them together until they feel dry. Soap and water are the best option if hands are visibly dirty. Avoid touching your eyes, nose, and mouth with unwashed hands. Avoid sharing personal household items You should not share dishes, drinking glasses, cups, eating utensils, towels, or bedding with other people or pets in your home. After using these items, they should be washed thoroughly with soap and water. Clean all high-touch surfaces everyday High touch surfaces include counters, tabletops, doorknobs, bathroom fixtures, toilets, phones, keyboards, tablets, and bedside tables. Also, clean any surfaces that may have blood, stool, or body fluids on them. Use a household cleaning spray or wipe, according to the label instructions. Labels contain instructions for safe and effective use of the cleaning product including precautions you should take when applying the product, such as wearing gloves and making sure you have good ventilation during use of the product. Monitor your symptoms Seek prompt medical attention if your illness is worsening (e.g., difficulty breathing).Beforeseeking care, call your healthcare provider and tell them that you have, or are being evaluated for, COVID-19. Put on a face mask before you enter the facility. These steps will help the healthcare providers office to keep other people in the office or waiting room from getting infected or exposed. Ask your healthcare provider to call the local or state health department. Persons who are placed under active monitoring or facilitated self- monitoring should follow instructions provided by their local health department or occupational health professionals, as appropriate. When working with your local health department check their available hours. If you have a medical emergency and need to call 911, notify the dispatch personnel that you have, or are being evaluated for COVID-19. If possible, put on a face mask before emergency medical services arrive. Discontinuing home isolation Can discontinue home isolation precautions 10 days after onset of symptoms. Pending Studies at Discharge: Yes Studies:: Lab: Basic metabolic panel in 1 week/next physician visit Stand-Alone Forms: [employer], Smoking Cessation Medications and DC Order Prescriptions: Continued acyclovir 400 mg Tablet 400 mg PO BID RF: 0 albuterol sulfate [Ventolin HFA] 90 mcg/actuation Hfa Aerosol Inhaler 2 puff INHALATION Q4H PRN (Reason: Cough) RF: 0 escitalopram oxalate [Lexapro] 10 mg Tablet 10 mg PO QAM RF: 0 Velcade 3.5 mg Recon Soln 1 dose subcut WK RF: 0 Multaq 400 mg Tablet 400 mg PO BID RF: 0 immun glob Q-eav-crod-IgA 0-50 5 gram recon soln 0 g IV .Q4 WEEKS RF: 0 warfarin 2.5 mg tablet 2.5 mg PO QPM Qty: 30 RF: 2 Darzalex 20 mg/mL Solution 1 dose IV DIRECTED Qty: 0 RF: 0 methylprednisolone 4 mg Tablet 20 mg PO UD RF: 0 gabapentin 300 mg capsule 300 mg PO TID RF: 0 Xgeva 120 mg/1.7 mL (70 mg/mL) Solution 120 mg SUBCUT .EVERY 3 MONTHS RF: 0 torsemide 20 mg Tablet 40 mg PO DAILY RF: 0 glipizide 10 mg tablet extended release 24hr 10 mg PO QAM RF: 0 potassium chloride 10 mEq Tablet Extended Release 20 meq PO DAILY RF: 0 pantoprazole 20 mg Tablet,Delayed Release (Dr/Ec) 20 mg PO DAILY RF: 0 Discharge Orders: Discharge Order (Routine); Ordered 09/05/20 Ordered By: Margarette Greenberg Admission Data Admit Date/Time: 09/02/20 03:53 Attending Provider: Margarette Greenberg Admit Provider: Angel Delcid Primary Care Provider: Dariela Billingsley Other Providers: Angel Delcid ; Dom Pearson
[2020-09-05] MEDS ORDERED: ONDANSETRON HOME PACK 4MG OD TAB PO ONE (10:30)
[2020-09-05 10:33] VITALS: BP 110/66
--- NOTE | 2020-09-05 15:48 | Communication Note ---
Date of Service: September 05, 2020 Attending addendum: Mr. Ochoa was discharged from the hospital today around 11 AM in stable condition: Not had any fever for last 24 hours, no cough or shortness of breath His GI symptoms: Nausea and diarrhea has completely resolved. Patient was at has usual state prior to discharge: Received call from Mrs. Ochoa around 3 PM. Patient started to spike temperature after arrival to home: Temperature 102 Having chills, body ache. Constant productive cough, associated with shortness of breath. Spoke with Mr. Bello over the phone: He is feeling poorly due to fever, saying he is bringing out yellow productive sputum with coughing, experiencing rib cage pain due to constant coughing and shortness of breath for the same. Denies of any headache, No nausea no diarrhea no abdominal pain no GI symptoms Patient does not has a home pulse oximeter so not aware of his oxygen saturation But feels definitely very short of breath which he never experienced during his last few days of hospital stay. Patient was admitted with COVID-19 infection chest x-ray showed bilateral infiltrates suggestive of multifocal pneumonia. During his admission hospital stay patient was never hypoxic remained in room air had minimum dry no nonproductive cough which was resolved 24 hours before discharge. Patient was not treated with IV dexamethasone or remdesivir as a he did not meet the criteria. Given patient she of multiple myeloma/hemopoietic stem cell transplantation, on chemo treatment he is profoundly immunocompromised, Risk of developing overt respiratory symptoms/respiratory failure due to COVID- 19 virus remains very high. Patient and his is asked to come back to ER to get evaluated. will need a chest x-ray or CT chest(patient is on Coumadin INR therapeutic less likely for pulmonary embolism) CT chest to outline in more detail for possible parenchymal infiltrates again secondary to COVID-19 virus Patient gets admitted to ER, I will accept the patient under my service for continuation of care. Margarette Greenberg MD
--- NOTE | 2020-09-06 17:21 | Communication Note ---
Date of Service: September 06, 2020 Hospitalist Addendum : pt was discharged home yesterday 09/05/20 received call form Pt's :, that pt developed fever , cough and shortness of breath after coming home . pt was asked to come to ER for further evaluation -see documentation on 09/05/20 pt did not come to ER yesterday . Follow up telephone call to Patient today : over phone -Mr Ochoa says he feels much better , his fever subsided after taking Tylenol , no fever since yesterday still has cough , but not short of breath any more . advised pt to return ER with any worsening of symptom will call Pt's Family Physician Dr Jerardo Mathias at [facility] for Hospital follow up pt should have a Chest Xray repeat on clinic visit PO Doxycycline 100 mg Twice daily for 5 days sent to patient's pharmacy for possible Bronchitis ( pt received IV Zosyn during hospital stay ) Pt is updated about Antibiotic Margarette Greenberg MD
== END 2020-09-05 11:09 | disposition home or self-care (01) | DRG 177 ==
LOC: ED 00:32 → SUATTDRO 03:53 → EDINP 03:53 → 2S 09-03 00:27
DX: J12.89 Other viral pneumonia; I50.32 Chronic diastolic (congestive) heart failure; I42.5 Other restrictive cardiomyopathy; I13.0 Hypertensive heart and chronic kidney disease with heart failure and stage 1 through stage 4 chronic kidney disease, or unspecified chronic kidney disease; E85.9 Amyloidosis, unspecified; I48.0 Paroxysmal atrial fibrillation; K21.9 Gastro-esophageal reflux disease without esophagitis; R79.89 Other specified abnormal findings of blood chemistry; I25.10 Atherosclerotic heart disease of native coronary artery without angina pectoris; E11.22 Type 2 diabetes mellitus with diabetic chronic kidney disease; N18.9 Chronic kidney disease, unspecified; Z79.01 Long term (current) use of anticoagulants; C90.00 Multiple myeloma not having achieved remission; Z79.84 Long term (current) use of oral hypoglycemic drugs; A08.39 Other viral enteritis; U07.1 COVID-19

== ENCOUNTER 2022-02-26 11:00 | Observation (INO) ==
--- NOTE | 2022-02-26 11:29 | Emergency Department Note ---
History of Present Illness General Chief complaint: Fever Stated complaint: FEVER FOR 4 DAYS Time Seen by Provider: 02/26/22 11:08 History of Present Illness This is a 52-year-old male that presents to the emergency department referred by chemotherapy center/oncologist with complaints of "fever". The patient has a history of amyloidosis, multiple myeloma currently on chemotherapy among other comorbidities that notes he had a mild fever last week that resulted in a missed chemotherapy dose. Temperature then was 99.1. No other symptoms then. Patient notes that last evening and the night before he has had a low-grade fever. He notes that 2 nights ago it was 99.5 and last night was 100.5 F. He notes s hivering, sweating, and feeling "rough". He has also had a cough over the past 2 days. He notes that his daughter also has been experiencing similar symptoms. The patient notes that he was scheduled for chemotherapy today but was referred here noting the fever. Patient did feel quite nauseous yesterday and had some diarrhea but this has resolved. He has chronic shortness of breath but nothing new. No chest pain. No vomiting. He did do an at home COVID test prior to arrival which was negative. Home Medications Medication Instructions Recorded Confirmed Type acyclovir 400 mg tablet 400 mg PO BID 05/16/18 02/26/22 History albuterol sulfate 90 mcg/actuation 2 puff INHALATION Q4H PRN 05/16/18 02/26/22 History aerosol inhaler (Ventolin HFA) dronedarone 400 mg tablet (Multaq) 400 mg PO BID 05/16/18 02/26/22 History escitalopram oxalate 10 mg tablet 10 mg PO QAM 05/16/18 02/26/22 History (Lexapro) pantoprazole 20 mg tablet,delayed 20 mg PO DAILY 09/02/20 02/26/22 History release potassium chloride 10 mEq 20 meq PO DAILY 09/02/20 02/26/22 History tablet,extended release torsemide 20 mg tablet 40 mg PO BID 09/02/20 02/26/22 History dapsone 25 mg tablet 25 mg PO DAILY 02/26/22 02/26/22 History evolocumab 140 mg/mL subcutaneous 140 mg SUBCUT UD 02/26/22 02/26/22 History pen injector (Sherry Doran) folic acid 400 mcg tablet 400 mcg PO DAILY 02/26/22 02/26/22 History gabapentin 400 mg capsule 800 mg PO BID 02/26/22 02/26/22 History midodrine 5 mg tablet 5 mg PO BID 02/26/22 02/26/22 History semaglutide (Ozempic) 0.5 mg SUBCUT WK 02/26/22 02/26/22 History tenofovir disoproxil fumarate 300 300 mg PO QAM 02/26/22 02/26/22 History mg tablet warfarin 2.5 mg tablet See Rx Instructions .ROUTE .COMPLEX 02/26/22 02/26/22 History Allergies Allergy/AdvReac Type Severity Reaction Status Date / Time No Known Allergies Allergy Verified 02/26/22 16:13 Past Med/Surg History Medical History Amyloidosis dx 2017; follows with [facility] Atrial fibrillation Chronic diastolic CHF (congestive heart failure) History of depression Multiple myeloma dx 2013; follows with [facility]. 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 Mother No problems noted. Social History Smoking Status: Never smoker Second Hand Exposure: No; Hx Alcohol Use: No Hx Substance Use: No Preferred Language: Yi Communication Ability: Effective Pressfitter Required: No Beliefs That Will Affect Care: None marital status details: twice - 3 children in total between the 2 marriages Current Living Situation: Spouse Current Living Situation Comment: lives in [place] current occupational status: disabled current occupation: previously worked at [email or web address] Feels Safe at Home: Yes Assistive Devices: CPAP Review of Systems A total of 10 systems reviewed and were otherwise negative Physical Exam Vital Signs Vital Signs - 24 hr 02/26/22 11:00 02/26/22 12:01 02/26/22 14:49 Temperature 36.9 C Temperature Source Oral Pulse Rate 76 68 Pulse Rate [Right Finger] 68 66 Pulse Rhythm [Right Finger] Pulse Strength [Right Finger] Respiratory Rate 16 20 20 Respiratory Effort / Characteristics Non-Labored Non-Labored Respiratory Depth Normal Normal Respiratory Pattern Blood Pressure 106/66 Blood Pressure [Right Arm] 125/76 121/77 Blood Pressure Mean 79 Blood Pressure Mean [Right Arm] 92 91 Blood Pressure Position [Right Arm] Pulse Oximetry 96 96 99 Oxygen Delivery Method Room Air Room Air Room Air Sepsis Recent Fever Within 48 Hours Yes Sepsis New/Unexplained Change in Mental Status N/A Sepsis Action Taken by Nursing No Action Required 02/26/22 16:42 02/26/22 17:52 Temperature 38.3 C H Temperature Source Oral Pulse Rate Pulse Rate [Right Finger] 77 88 Pulse Rhythm [Right Finger] Regular Pulse Strength [Right Finger] Normal Respiratory Rate 18 18 Respiratory Effort / Characteristics Non-Labored Non-Labored Spontaneous Respiratory Depth Normal Normal Respiratory Pattern Regular Regular Blood Pressure Blood Pressure [Right Arm] 124/80 110/63 Blood Pressure Mean Blood Pressure Mean [Right Arm] 94 78 Blood Pressure Position [Right Arm] Sitting Sitting Pulse Oximetry 95 Oxygen Delivery Method Room Air Room Air Sepsis Recent Fever Within 48 Hours Sepsis New/Unexplained Change in Mental Status Sepsis Action Taken by Nursing VITAL SIGNS - Vital signs and nursing notes were reviewed. Stable and afebrile. GENERAL - 52-year-old male appearing his stated age who is in no acute distress. Communicates well with provider and answers questions appropriately. SKIN - Without rashes. No meningeal or petechial rash. HEAD - NC/AT. EYES - PERRL with EOMI bilaterally. Sclera anicteric. EARS - No deformities of external structures noted on gross examination bilaterally. No pain elicited with palpation of the tragus bilaterally. External auditory canals without discharge or otorrhea. Tympanic membranes pearly gamboa without retraction or bulging. No fluid or purulent material visualized behind the TM. Handle of malleus, umbo, cone of light, pars tensa/flaccid all easily visualized. NOSE - Midline and without cyanosis. No epistaxis or purulent drainage noted. Septum midline without deviation or septal hematoma noted. MOUTH/OROPHARYNX - Without perioral cyanosis. Buccal mucosa pink and moist and without leukoplakia. Tongue midline with equal elevation of palate bilaterally. No tonsillar hypertrophy, erythema, or exudates noted. NECK - Neck with FROM. No nuchal rigidity. LUNGS - Chest wall symmetric without accessory muscle use, intercostals retractions, or central cyanosis. Normal vesicular breath sounds CTA B/L. No wheezes, rales, or rhonchi appreciated. CARDIAC - RRR ABDOMEN - Abdominal contour normal without pulsations or visible masses. BS normoactive all four quadrants. No tenderness, palpable masses, hepatosplenomegaly, or ascites noted. EXTREMITIES - No clubbing or peripheral cyanosis. +5/5 strength noted in UE/LE bilaterally. NEUROLOGIC - Cranial nerves II through XII grossly intact. PSYCH - A&Ox3 and cooperates fully with examiner. Pt is very pleasant and interacts well with examiner. Course Administered Medications Discontinued Medications Acetaminophen (Acetaminophen 325 Mg Tab) Confirm Administered Dose 650 mg .ROUTE .STK-MED ONE Stop: 02/26/22 18:11 Last Admin: 02/26/22 18:11 Dose: 650 mg Documented by: [id number] Doxycycline Hyclate (Doxycycline Hyclate 100 Mg Cap) 100 mg PO NOW STA Stop: 02/26/22 17:26 Last Admin: 02/26/22 17:51 Dose: 100 mg Documented by: [id number] Ceftriaxone Sodium (Rocephin) 2,000 mg in 70 mls @ 140 mls/hr IV NOW STA Stop: 02/26/22 17:54 Last Admin: 02/26/22 17:52 Dose: 140 mls/hr Documented by: [id number] Medical Decision Making Laboratory Data Result diagrams: 02/26/22 12:12 02/26/22 12:12 Lab Results 02/26/22 02/26/22 02/26/22 Range/Units 12:00 12:12 12:12 WBC (4.8-10.8) K/uL RBC (4.7-6.1) M/uL Hgb (14.0-18.0) g/dL Hct (42-52) % MCV (80-100) fL MCH (25-34) pg MCHC (32-36) g/dL RDW Std Deviation (36.4-46.3) fL RDW Coeff of Tobi (11.5-14.5) % Plt Count (130-400) K/uL MPV (7.4-10.4) fL Immature Gran % (Auto) % Neut % (Auto) % Lymph % (Auto) % Trinity % (Auto) % Eos % (Auto) % Baso % (Auto) % Neut # (Auto) (1.4-6.5) K/uL Lymph # (Auto) (1.2-3.4) K/uL Trinity # (Auto) (0.11-0.59) K/uL Eos # (Auto) (0-0.5) K/uL Baso # (Auto) (0-0.2) K/uL Immature Gran # (Auto) (0.00-0.02) K/uL PT (9.0-12.0) Seconds INR (0.9-1.1) APTT (21.0-31.0) Seconds PTT Ratio Sodium (136-145) mmol/L Potassium (3.5-5.1) mmol/L Chloride (98-107) mmol/L Carbon Dioxide (21-32) mmol/L Anion Gap (3-11) BUN (6-23) mg/dl Creatinine (0.6-1.4) mg/dl Est Cr Clr Drug Dosing ml/min Est GFR ( Amer) ml/min Est GFR (Non-Af Amer) ml/min BUN/Creatinine Ratio (10-20) Glucose (70-99(Fasting)) mg/dl Lactate 1.8 (0.4-2.0) mmol/L Calcium (8.5-10.1) mg/dl Magnesium (1.7-2.4) mg/dl Total Bilirubin (0.2-1.0) mg/dl AST (13-39) U/L ALT (7-52) U/L Alkaline Phosphatase (34-104) U/L Troponin I High Sens (0-20) pg/ml Total Protein (6.0-8.3) gm/dl Albumin (3.4-5.0) gm/dl Globulin (2.5-4.0) gm/dl Albumin/Globulin Ratio (0.9-2) Procalcitonin 0.15 (0-0.5) ng/ml TSH (0.300-4.500) uIu/ml Urine Color Urine Appearance (Clear) Urine pH (4.5-7.5) Ur Specific [place] (1.000-1.030) Urine Protein (Negative) Urine Glucose (UA) (Negative) Urine Ketones (Negative) Urine Blood (Negative) Urine Nitrite (Negative) Urine Bilirubin (Negative) Urine Urobilinogen (Negative) Ur Leukocyte Esterase (Negative) Urine WBC (Auto) (0-5) /hpf Urine RBC (Auto) (0-4) /hpf U Hyaline Cast (Auto) (0-5) /lpf U Epithel Cells (Auto) (0-5) /lpf Urine Bacteria (Auto) (Negative) Adenovirus (PCR) Not Detected (NotDetected) B. pertussis DNA (PCR) Not Detected (NotDetected) B.parapertussis DNA PCR Not Detected (NotDetected) Lyme Disease IgG Ab Negative (Negative) Lyme Disease IgM Ab Negative (Negative) C. pneumoniae DNA (PCR) Not Detected (NotDetected) Coronavirus OC43 (PCR) Not Detected (NotDetected) Coronavirus HKU1 (PCR) Not Detected (NotDetected) Coronavirus 229E (PCR) Not Detected (NotDetected) SARS-CoV-2 (PCR) Not Detected (NotDetected) Coronavirus NL63 (PCR) Not Detected (NotDetected) Human Metapneumovir PCR Not Detected (NotDetected) Influenza Type A (PCR) Not Detected (NotDetected) Influenza Type B (PCR) Not Detected (NotDetected) M. pneumoniae (PCR) Not Detected (NotDetected) Parainfluenza 1 (PCR) Not Detected (NotDetected) Parainfluenza 2 (PCR) Not Detected (NotDetected) Parainfluenza 3 (PCR) Not Detected (NotDetected) Parainfluenza 4 (PCR) DETECTED A* (NotDetected) RSV (PCR) Not Detected (NotDetected) Entero/Rhino (PCR) Not Detected (NotDetected) 02/26/22 02/26/22 02/26/22 Range/Units 12:12 12:12 12:12 WBC 10.49 (4.8-10.8) K/uL RBC 3.37 L (4.7-6.1) M/uL Hgb 11.5 L (14.0-18.0) g/dL Hct 33.7 L (42-52) % MCV 100.0 (80-100) fL MCH 34.1 H (25-34) pg MCHC 34.1 (32-36) g/dL RDW Std Deviation 55.0 H (36.4-46.3) fL RDW Coeff of Tobi 15.2 H (11.5-14.5) % Plt Count 188 (130-400) K/uL MPV 10.1 (7.4-10.4) fL Immature Gran % (Auto) 0.3 % Neut % (Auto) 88.7 % Lymph % (Auto) 6.4 % Trinity % (Auto) 3.4 % Eos % (Auto) 1.1 % Baso % (Auto) 0.1 % Neut # (Auto) 9.30 H (1.4-6.5) K/uL Lymph # (Auto) 0.67 L (1.2-3.4) K/uL Trinity # (Auto) 0.36 (0.11-0.59) K/uL Eos # (Auto) 0.12 (0-0.5) K/uL Baso # (Auto) 0.01 (0-0.2) K/uL Immature Gran # (Auto) 0.03 H (0.00-0.02) K/uL PT (9.0-12.0) Seconds INR (0.9-1.1) APTT (21.0-31.0) Seconds PTT Ratio Sodium 135 L (136-145) mmol/L Potassium 3.5 (3.5-5.1) mmol/L Chloride 101 (98-107) mmol/L Carbon Dioxide 29 (21-32) mmol/L Anion Gap 5 (3-11) BUN 34 H (6-23) mg/dl Creatinine 1.75 H (0.6-1.4) mg/dl Est Cr Clr Drug Dosing 54.4 ml/min Est GFR ( Amer) 50.8 ml/min Est GFR (Non-Af Amer) 43.8 ml/min BUN/Creatinine Ratio 19.4 (10-20) Glucose 274 H (70-99(Fasting)) mg/dl Lactate (0.4-2.0) mmol/L Calcium 9.0 (8.5-10.1) mg/dl Magnesium 1.9 (1.7-2.4) mg/dl Total Bilirubin 0.8 (0.2-1.0) mg/dl AST 10 L (13-39) U/L ALT 15 (7-52) U/L Alkaline Phosphatase 96 (34-104) U/L Troponin I High Sens 45.5 H (0-20) pg/ml Total Protein 5.6 L (6.0-8.3) gm/dl Albumin 3.6 (3.4-5.0) gm/dl Globulin 2.0 L (2.5-4.0) gm/dl Albumin/Globulin Ratio 1.8 (0.9-2) Procalcitonin (0-0.5) ng/ml TSH 3.897 (0.300-4.500) uIu/ml Urine Color Urine Appearance (Clear) Urine pH (4.5-7.5) Ur Specific [place] (1.000-1.030) Urine Protein (Negative) Urine Glucose (UA) (Negative) Urine Ketones (Negative) Urine Blood (Negative) Urine Nitrite (Negative) Urine Bilirubin (Negative) Urine Urobilinogen (Negative) Ur Leukocyte Esterase (Negative) Urine WBC (Auto) (0-5) /hpf Urine RBC (Auto) (0-4) /hpf U Hyaline Cast (Auto) (0-5) /lpf U Epithel Cells (Auto) (0-5) /lpf Urine Bacteria (Auto) (Negative) Adenovirus (PCR) (NotDetected) B. pertussis DNA (PCR) (NotDetected) B.parapertussis DNA PCR (NotDetected) Lyme Disease IgG Ab (Negative) Lyme Disease IgM Ab (Negative) C. pneumoniae DNA (PCR) (NotDetected) Coronavirus OC43 (PCR) (NotDetected) Coronavirus HKU1 (PCR) (NotDetected) Coronavirus 229E (PCR) (NotDetected) SARS-CoV-2 (PCR) (NotDetected) Coronavirus NL63 (PCR) (NotDetected) Human Metapneumovir PCR (NotDetected) Influenza Type A (PCR) (NotDetected) Influenza Type B (PCR) (NotDetected) M. pneumoniae (PCR) (NotDetected) Parainfluenza 1 (PCR) (NotDetected) Parainfluenza 2 (PCR) (NotDetected) Parainfluenza 3 (PCR) (NotDetected) Parainfluenza 4 (PCR) (NotDetected) RSV (PCR) (NotDetected) Entero/Rhino (PCR) (NotDetected) 02/26/22 02/26/22 Range/Units 13:05 Unknown WBC (4.8-10.8) K/uL RBC (4.7-6.1) M/uL Hgb (14.0-18.0) g/dL Hct (42-52) % MCV (80-100) fL MCH (25-34) pg MCHC (32-36) g/dL RDW Std Deviation (36.4-46.3) fL RDW Coeff of Tobi (11.5-14.5) % Plt Count (130-400) K/uL MPV (7.4-10.4) fL Immature Gran % (Auto) % Neut % (Auto) % Lymph % (Auto) % Trinity % (Auto) % Eos % (Auto) % Baso % (Auto) % Neut # (Auto) (1.4-6.5) K/uL Lymph # (Auto) (1.2-3.4) K/uL Trinity # (Auto) (0.11-0.59) K/uL Eos # (Auto) (0-0.5) K/uL Baso # (Auto) (0-0.2) K/uL Immature Gran # (Auto) (0.00-0.02) K/uL PT 20.9 H (9.0-12.0) Seconds INR 2.0 H (0.9-1.1) APTT 92.1 H* (21.0-31.0) Seconds PTT Ratio 3.3 Sodium (136-145) mmol/L Potassium (3.5-5.1) mmol/L Chloride (98-107) mmol/L Carbon Dioxide (21-32) mmol/L Anion Gap (3-11) BUN (6-23) mg/dl Creatinine (0.6-1.4) mg/dl Est Cr Clr Drug Dosing ml/min Est GFR ( Amer) ml/min Est GFR (Non-Af Amer) ml/min BUN/Creatinine Ratio (10-20) Glucose (70-99(Fasting)) mg/dl Lactate (0.4-2.0) mmol/L Calcium (8.5-10.1) mg/dl Magnesium (1.7-2.4) mg/dl Total Bilirubin (0.2-1.0) mg/dl AST (13-39) U/L ALT (7-52) U/L Alkaline Phosphatase (34-104) U/L Troponin I High Sens (0-20) pg/ml Total Protein (6.0-8.3) gm/dl Albumin (3.4-5.0) gm/dl Globulin (2.5-4.0) gm/dl Albumin/Globulin Ratio (0.9-2) Procalcitonin (0-0.5) ng/ml TSH (0.300-4.500) uIu/ml Urine Color Yellow Urine Appearance Clear (Clear) Urine pH 5.5 (4.5-7.5) Ur Specific [place] 1.011 (1.000-1.030) Urine Protein Trace H (Negative) Urine Glucose (UA) 2+ H (Negative) Urine Ketones Negative (Negative) Urine Blood Negative (Negative) Urine Nitrite Negative (Negative) Urine Bilirubin Negative (Negative) Urine Urobilinogen Negative (Negative) Ur Leukocyte Esterase Negative (Negative) Urine WBC (Auto) 0 (0-5) /hpf Urine RBC (Auto) 0-4 (0-4) /hpf U Hyaline Cast (Auto) 0 (0-5) /lpf U Epithel Cells (Auto) 0-5 (0-5) /lpf Urine Bacteria (Auto) Negative (Negative) Adenovirus (PCR) (NotDetected) B. pertussis DNA (PCR) (NotDetected) B.parapertussis DNA PCR (NotDetected) Lyme Disease IgG Ab (Negative) Lyme Disease IgM Ab (Negative) C. pneumoniae DNA (PCR) (NotDetected) Coronavirus OC43 (PCR) (NotDetected) Coronavirus HKU1 (PCR) (NotDetected) Coronavirus 229E (PCR) (NotDetected) SARS-CoV-2 (PCR) (NotDetected) Coronavirus NL63 (PCR) (NotDetected) Human Metapneumovir PCR (NotDetected) Influenza Type A (PCR) (NotDetected) Influenza Type B (PCR) (NotDetected) M. pneumoniae (PCR) (NotDetected) Parainfluenza 1 (PCR) (NotDetected) Parainfluenza 2 (PCR) (NotDetected) Parainfluenza 3 (PCR) (NotDetected) Parainfluenza 4 (PCR) (NotDetected) RSV (PCR) (NotDetected) Entero/Rhino (PCR) (NotDetected) Imaging Data Radiologist's Impression: Chest X-Ray 02/26/22 11:25 SINGLE VIEW CHEST CLINICAL HISTORY: Fever. FINDINGS: An AP, portable, upright chest radiograph is compared to study dated 09/02/2020 and correlated with chest CT dated 07/06/2018. A right internal jugular Central venous infusion port is new from previous. The heart is enlarged. There is mild pulmonary vascular congestion. There are small pleural effusions, right larger than left with bibasilar consolidation. No pneumothorax is seen. The bony thorax is grossly intact. IMPRESSION: 1. Cardiomegaly with mild pulmonary vascular congestion. 2. Right larger than left pleural effusions with dependent consolidation. This likely represents atelectasis and clinical correlation will be required. ACT 112: Negative or not required by law. Electronically signed by: Daniel Alcantara M.D. 02/26/2022 11:45 AM MDM Narrative Patient was seen and evaluated as above in room C07. Review was performed of nursing notes and vital signs. I did review pertinent previous visits and patient history. After obtaining a thorough history and physical examination the above work up was performed. Patient presents to us today with noting a fever at home. On presentation he is afebrile and clinically well-appearing. He is conversing without difficulty. No drooling, stridor, trismus, wheezing or tripoding. He is speaking in full sentences. Options of care were discussed with the patient. IV access was established. Labs were drawn. There is no leukocytosis. Mild anemia noted with hemoglobin of 11.5. Mild hyponatremia 135. Creatinine near baseline at 1.75. Glucose 274. Troponin 45.5 and appears to be similar to baseline reviewing the traditional troponin laboratory studies from previous. Pro-Jeremy 0.15. TSH reveals euthyroid state. Lactate is normal. Urinalysis reveals 2+ glucose but otherwise no evidence of infection. Bio fire positive for parainfluenza 4. I suspect the patient's symptoms are likely from parainfluenza. It also is likely to be viral as he notes his daughter has similar symptoms. However, there is concern for potential superimposed bacterial infection. There was elevated white blood cell count he notes performed on laboratory studies performed earlier today in the [employer] system. I also note will note on his chest x-ray within the pleural effusions there is comment of some dependent consolidations. Radiology favors these to be atelectasis but at this time with the patient noting fevers at home in the setting of viral illness it is possible these could be bacterial consolidation starting as a superimposed bacterial infection. I discussed this presentation with the on-call tuckpointer/oncologist for the [facility] of which the patient has previously followed. He traditionally follows with Dr. Amaral. We attempted to reach Dr. Amaral and were called back by Dr. Evangelista. I reviewed the case. We discussed initiating antibiotics. We discussed inpatient versus outpatient management. At this time although the patient is afebrile and clinically well-appearing and overall reassuring work-up thus far, it is still felt that it would be reasonable for the patient to be admitted to the hospital overnight to trend his clinical status. We discussed starting antibiotics such as Levaquin. I then discussed this with the patient. He is amenable to plan of care. I did review his current medication list. I then discussed this with the clinical pharmacist in regard to antibiotic choice. I then discussed this with the hospitalist service. I informed them upon the recommendations from Dr. Evangelista. As the patient currently has stable vital signs, is afebrile, and clinically appears well, the medicine team will evaluate patient and ultimately choose the antibiotic regimen. I believe this is reasonable. They will admit the patient for further evaluation and management. Patient informed upon plan of care. Patient noted some chills and had his temperature rechecked then but was reportedly afebrile. ED decision to admit: 1551hrs. EKG reveals normal sinus rhythm at a rate of 69 bpm. QTc 437. QRS 88. No ST elevation. This is compared EKG of September 02, 2020 and had no significant change was found. Case was discussed with the attending physician. An order was placed for continuous cardiac monitoring. The monitor shows a rate of 88 with sinus rhythm. GCS: 15 In the evaluation and treatment of this patient the following differential diagnoses were entertained: Pneumonia, myocarditis, [place], PE, pericarditis, sepsis, bacteremia, viral illness, among others. Impression & Plan Fever, Parainfluenza infection, Cough Discharge Plan Visit Data Chief Complaint: Fever Stated Complaint: FEVER FOR 4 DAYS ED Provider: Antoinette Gil ED Midlevel Provider: Kai Coats Prescriptions Prescriptions: No Action acyclovir 400 mg Tablet 400 mg PO BID RF: 0 albuterol sulfate [Ventolin HFA] 90 mcg/actuation Hfa Aerosol Inhaler 2 puff INHALATION Q4H PRN (Reason: Cough) RF: 0 escitalopram oxalate [Lexapro] 10 mg Tablet 10 mg PO QAM RF: 0 Multaq 400 mg Tablet 400 mg PO BID RF: 0 torsemide 20 mg Tablet 40 mg PO BID RF: 0 potassium chloride 10 mEq Tablet Extended Release 20 meq PO DAILY RF: 0 pantoprazole 20 mg Tablet,Delayed Release (Dr/Ec) 20 mg PO DAILY RF: 0 gabapentin 400 mg Capsule 800 mg PO BID RF: 0 midodrine 5 mg tablet 5 mg PO BID RF: 0 folic acid 400 mcg tablet 400 mcg PO DAILY RF: 0 dapsone 25 mg tablet 25 mg PO DAILY RF: 0 tenofovir disoproxil fumarate 300 mg tablet 300 mg PO QAM RF: 0 Ozempic 0.25 mg or 0.5 mg(2 mg/1.5 mL) Pen Injector 0.5 mg SUBCUT WK RF: 0 warfarin 2.5 mg tablet See Rx Instructions .ROUTE .COMPLEX RF: 0 Repatha SureClick 140 mg/mL pen injector 140 mg SUBCUT UD RF: 0
--- NOTE | 2022-02-26 11:47 | XRay Report ---
SINGLE VIEW CHEST CLINICAL HISTORY: Fever. FINDINGS: An AP, portable, upright chest radiograph is compared to study dated 09/02/2020 and correla marco antonio with chest CT dated 07/06/2018. A right internal jugular Central venous infusion port is new from previous. The heart is enlarged. There is mild pulmonary vascular congestion. There are small pleura l effusions, right larger than left with bibasilar consolidation. No pneumothorax is seen. The bony t horax is grossly intact. IMPRESSION: 1. Cardiomegaly with mild pulmonary vascular congestion. 2. Right larger than left pleural effusions with dependent consolidation. This likely represents atel ectasis and clinical correlation will be required. ACT 112: Negative or not required by law. Electronically signed by: Daniel Alcantara M.D. 02/26/2022 11:45 AM
[2022-02-26 12:38] LABS: Basophils # (auto) 0.01 K/uL (0-0.2); Basophils % (auto) 0.1 %; Eosinophils # (auto) 0.12 K/uL (0-0.5); Eosinophils % (auto) 1.1 %; Hematocrit (blood only) 33.7 % (42-52); Hemoglobin 11.5 g/dL (14.0-18.0); Immature Granulocytes # (auto) 0.03 K/uL (0.00-0.02); Immature Granulocytes % (auto) 0.3 %; Lymphocytes # (auto) 0.67 K/uL (1.2-3.4); Lymphocytes % (auto) 6.4 %; Mean Corpuscular Hemoglobin 34.1 pg (25-34); Mean Corpuscular Hgb Conc 34.1 g/dL (32-36); Mean Platelet Volume 10.1 fL (7.4-10.4); Monocytes # (auto) 0.36 K/uL (0.11-0.59); Monocytes % (auto) 3.4 %; Neutrophils % (auto) 88.7 %; Platelet Count 188 K/uL (130-400); RDW Coefficient of Variation 15.2 % (11.5-14.5); Red Blood Count 3.37 M/uL (4.7-6.1); White Blood Count 10.49 K/uL (4.8-10.8)
[2022-02-26 12:57] LABS: Albumin Globulin Ratio 1.8 (0.9-2); Albumin Level 3.6 gm/dl (3.4-5.0); BUN Creatinine Ratio 19.4 (10-20); Bilirubin,Total 0.8 mg/dl (0.2-1.0); Creatinine Clr Calc Pharmacy 54.4 ml/min; Est GFR (African American) 50.8 ml/min; Est GFR (Non-African American) 43.8 ml/min; Magnesium 1.9 mg/dl (1.7-2.4); Potassium 3.5 mmol/L (3.5-5.1); Total Protein 5.6 gm/dl (6.0-8.3)
[2022-02-26 12:58] LABS: Troponin I High Sensitivity 45.5 pg/ml (0-20)
[2022-02-26 13:43] LABS: Appearance Urine Clear (Clear); Bacteria Urine Automated Negative (Negative); Bilirubin Urine Negative (Negative); Blood Urine Negative (Negative); Cast Urine Automated 0 /lpf (0-5); Color Urine Yellow; Epithelial Cell Urine Auto 0-5 /lpf (0-5); Glucose Urine UA 2+ (Negative); Ketones Urine Negative (Negative); Leukocyte Esterase Urine Negative (Negative); Nitrite Urine Negative (Negative); Protein Urine Trace (Negative); RBC Urine Automated 0-4 /hpf (0-4); Specific Gravity Urine 1.011 (1.000-1.030); Urobilinogen Urine Negative (Negative); WBC Urine Automated 0 /hpf (0-5); pH Urine 5.5 (4.5-7.5)
[2022-02-26 13:48] LABS: Adenovirus PCR Not Detected (NotDetected); Bordetella parapertussis PCR Not Detected (NotDetected); Bordetella pertussis PCR Not Detected (NotDetected); Chlamydia pneumoniae PCR Not Detected (NotDetected); Coronavirus 229E PCR Not Detected (NotDetected); Coronavirus CoV-2 (COVID19)PCR Not Detected (NotDetected); Coronavirus HKU1 PCR Not Detected (NotDetected); Coronavirus NL63 PCR Not Detected (NotDetected); Coronavirus OC43PCR Not Detected (NotDetected); Human Metapneumovirus PCR Not Detected (NotDetected); Influenza A PCR Not Detected (NotDetected); Influenza B PCR Not Detected (NotDetected); Mycoplasma pneumoniae PCR Not Detected (NotDetected); Parainfluenza Virus 1 PCR Not Detected (NotDetected); Parainfluenza Virus 2 PCR Not Detected (NotDetected); Parainfluenza Virus 3 PCR Not Detected (NotDetected); Respiratory Syncytial VirusPCR Not Detected (NotDetected); Rhinovirus/Enterovirus PCR Not Detected (NotDetected)
[2022-02-26 13:52] LABS: Parainfluenza Virus 4 PCR DETECTED (NotDetected)
[2022-02-26 14:13] LABS: Procalcitonin 0.15 ng/ml (0-0.5)
--- NOTE | 2022-02-26 14:42 | Electrocardiogram Report ---
Test Reason : Blood Pressure : / mmHG Vent. Rate : 069 BPM Atrial Rate : 069 BPM P-R Int : 186 ms QRS Dur : 088 ms QT Int : 408 ms P-R-T Axes : 027 104 243 degrees QTc Int : 437 ms Normal sinus rhythm Possible Left atrial enlargement Rightward axis T wave abnormality, consider lateral ischemia Abnormal ECG When compared with ECG of 02-SEP-2020 01:42, T wave inversion more evident in Lateral leads Confirmed by Santiago Johnson ([id number]) on 02/26/2022 2:42:38 PM Referred By: REFERRED SELF Confirmed By:David Johnson
[2022-02-26 16:11] LABS: Lyme Ab IgG w/WB Rflx Negative (Negative); Lyme Ab IgM w/WB Rflx Negative (Negative)
--- NOTE | 2022-02-26 16:46 | Communication Note ---
Date of Service: February 26, 2022 History and physical exam performed by me. History notable for 52-year-old man with history of multiple myeloma on chemo, CKD 3 and other medical problems who presents with fever, chills and cough. Reported upper respiratory symptoms and fever last week. Continue to have low-grade fever associated with chills in the evenings and for this he did not get chemo last week. Cough started 2 days ago with chills, nausea, an episode of diarrhea. On exam, General: Not in distress, +shivering Eyes: PERRL, conjunctivae normal, not pale, anicteric sclerae, EOM intact bilaterally ENMT: External ear and nose normal, oropharynx normal Respiratory: Normal respiratory effort, no respiratory distress, good air entry,no crackles Cardiovascular: RRR S1 S2 Gastrointestinal (Abdomen): Abdomen is not distended, soft, non-tender to palpation, no guarding, no palpable hepatosplenomegaly, normal bowel sounds Musculoskeletal: +bilateral pedal edema Genitourinary: No CVA tenderenss Neurologic: Alert and oriented x 3, No focal weakness, sensation grossly intact Psychiatric: Alert and oriented x 3, euthymic affect Labs notable for Hb 11.5, Cr of 1.75, Glucose of 274, trop HS 45.5 Biofire + for parainfluenza CXR noted cardiomegaly with mild pulm vasc congestion, R>L pleural effusion with dependent consolidation likely atelectasis Parainfluenza infection Considering patient immunosuppressed status, symptoms progressing over 1 week now, there is concern for secondary bacterial infection. Will cover with antibiotics for now. Supportive care Antitussive Change home diuretic po to IV for now Agree with other plans as detailed by Aria Guardado PA-C
--- NOTE | 2022-02-26 16:58 | History & Physical Report ---
Date of Service February 26, 2022 Assessment & Plan (1) Fever: (2) Parainfluenza infection: Plan: Possible Pneumonia Patient is 52 y/o M with PMH multiple myeloma s/p stem cell transplantation, currently undergoing chemo, amyloidosis, steroid use, DM II, CKD III, atrial fibrillation on anticoagulation, diastolic dysfunction, depression, DEBBY presented to ER with c/o low grade fever x 2 days. Reported low grade fever last week as well Today in ER vitals stable. No leukocytosis, lactate: 1.8, procalcitonin: 0.15. Negative COVID-19 PCR. + Parainfluenza CXR: Cardiomegaly with mild pulmonary vascular congestion. Right larger than left pleural effusions with dependent consolidation. This likely represents atelectasis and clinical correlation will be required. Blood cultures pending Start Rocephin, doxycycline Guaifenesin, Tessalon Perles as needed CBC, BMP in a.m. (3) Multiple myeloma: (4) Amyloidosis: Plan: Follows with Oncology Dr Amaral in [place] Last chemo 03/11/2022 Continue home meds Acute on chronic diastolic heart failure High-sensitivity troponin: 45. [facility] chart review patient with chronically elevated high-sensitivity troponin 31-47. Trend troponin History echo 02/25/2022: EF: 50-55%, mild mitral regurgitation, mild tricuspid regurgitation, severe left atrial enlargement, RV systolic function reduced Denies chest pain Hold home torsemide, convert to IV Lasix and reassess tomorrow Monitor I's and O's, daily weight, low-sodium diet DM II A1c: 5.2 on 01/01/2022 Random glucose 274 today Hold home meds Basal bolus insulin per protocol Paroxysmal atrial fibrillation Anticoagulated on Coumadin INR: 2.0 Continue Coumadin INR in a.m. CKD III Cr: 1.75. Baseline 1.5-1.8 DEBBY CPAP at bedtime DVT Prophylaxis On Coumadin. INR therapeutic Full Code as per discussion with pt Follows with Dr Garcia for routine care Pt was seen and care coordinated with Dr Marquez. See addendum History of Present Illness Chief Complaint: Fever Primary Care Provider: Jaime Garcia MD Patient is 52 y/o M with PMH multiple myeloma s/p stem cell transplantation, currently undergoing chemo, amyloidosis, steroid use, DM II, CKD III, atrial fibrillation on anticoagulation, diastolic dysunction, depression, DEBBY presented to ER with c/o fever. Patient reports past 2 days has been having fever and chills, cough that he is unable to expectorate anything. States nausea yesterday and loose stool yesterday. Today formed stools. He reports last week he had sore throat and low-grade fever and did not receive chemo. Today was to have chemo however had reported his fever and cough symptoms, so chemo was held. Patient had negative rapid COVID-19 testing today and was referred to ER. Patient reports his daughter had cough symptoms recently. Reports chronic BLE edema and on torsemide total 40mg daily. Follows with oncology Dr. Amaral in [place], he is on daratumumab. Patient reports low BP's and dizziness for past several months and is on midodrine with improvement. Denies diaphoresis, vomiting, melena, hematochezia, HILL, syncope, vision changes, neck pain, CP, SOB, orthopnea, palpitations, hemoptysis, choking, otalgia, rhinorrhea, abdominal pain, paresthesias, extremity weakness, rashes, urinary symptoms. Allergies Allergy/AdvReac Type Severity Reaction Status Date / Time No Known Allergies Allergy Verified 02/26/22 16:13 Home Medications Medication Instructions Recorded Confirmed Type acyclovir 400 mg tablet 400 mg PO BID 05/16/18 02/26/22 History albuterol sulfate 90 mcg/actuation 2 puff INHALATION Q4H PRN 05/16/18 02/26/22 History aerosol inhaler (Ventolin HFA) dronedarone 400 mg tablet (Multaq) 400 mg PO BID 05/16/18 02/26/22 History escitalopram oxalate 10 mg tablet 10 mg PO QAM 05/16/18 02/26/22 History (Lexapro) pantoprazole 20 mg tablet,delayed 20 mg PO DAILY 09/02/20 02/26/22 History release potassium chloride 10 mEq 20 meq PO DAILY 09/02/20 02/26/22 History tablet,extended release torsemide 20 mg tablet 40 mg PO BID 09/02/20 02/26/22 History dapsone 25 mg tablet 25 mg PO DAILY 02/26/22 02/26/22 History evolocumab 140 mg/mL subcutaneous 140 mg SUBCUT UD 02/26/22 02/26/22 History pen injector (Sherry Doran) folic acid 400 mcg tablet 400 mcg PO DAILY 02/26/22 02/26/22 History gabapentin 400 mg capsule 800 mg PO BID 02/26/22 02/26/22 History midodrine 5 mg tablet 5 mg PO BID 02/26/22 02/26/22 History semaglutide (Ozempic) 0.5 mg SUBCUT WK 02/26/22 02/26/22 History tenofovir disoproxil fumarate 300 300 mg PO QAM 02/26/22 02/26/22 History mg tablet warfarin 2.5 mg tablet See Rx Instructions .ROUTE .COMPLEX 02/26/22 02/26/22 History Past Med/Surg History Medical History (Updated 02/26/22 @ 20:43 by Aria Guardado PA-C) Amyloidosis dx 2017; follows with [facility] Atrial fibrillation Chronic diastolic CHF (congestive heart failure) History of depression Multiple myeloma dx 2013; follows with Dr. 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 Mother No problems noted. Social History Smoking Status: Never smoker Second Hand Exposure: No; Hx Alcohol Use: No Hx Substance Use: No Preferred Language: Dutch Communication Ability: Effective Shipping/Receiving Clerk Required: No Beliefs That Will Affect Care: None marital status details: twice - 3 children in total between the 2 marriages Current Living Situation: Spouse Current Living Situation Comment: lives in [place] current occupational status: disabled current occupation: previously worked at [employer] Feels Safe at Home: Yes Assistive Devices: CPAP Review of Systems Review of Systems: All systems reviewed & are unremarkable except as noted in HPI & below Physical Exam Physical Exam: PE per Dr Marquez Results & Data Results & Data ([facility]) Vital Signs (Past 12 Hours) Vital Signs Temp Pulse Pulse Resp BP BP Pulse Ox 02/26/22 16:42 77 18 124/80 02/26/22 14:49 66 20 121/77 99 06/17/22 12:01 68 68 20 125/76 96 02/26/22 11:00 36.9 C 76 16 106/66 96 Laboratory Results Short CBC 02/26/22 Range/Units 12:12 WBC 10.49 (4.8-10.8) K/uL Hgb 11.5 L (14.0-18.0) g/dL Hct 33.7 L (42-52) % Plt Count 188 (130-400) K/uL BMP 02/26/22 12:12 Sodium 135 L Potassium 3.5 Chloride 101 Carbon Dioxide 29 BUN 34 H Creatinine 1.75 H Glucose 274 H Calcium 9.0 Liver Function 02/26/22 Range/Units 12:12 Total Bilirubin 0.8 (0.2-1.0) mg/dl AST 10 L (13-39) U/L ALT 15 (7-52) U/L Alkaline Phosphatase 96 (34-104) U/L Albumin 3.6 (3.4-5.0) gm/dl Urine 02/26/22 Range/Units 13:05 Urine Color Yellow Urine Appearance Clear (Clear) Urine pH 5.5 (4.5-7.5) Ur Specific [place] 1.011 (1.000-1.030) Urine Protein Trace H (Negative) Urine Glucose (UA) 2+ H (Negative) Diagnostic Findings Chest X-Ray 02/26/22 11:25 SINGLE VIEW CHEST CLINICAL HISTORY: Fever. FINDINGS: An AP, portable, upright chest radiograph is compared to study dated 09/02/2020 and correlated with chest CT dated 07/06/2018. A right internal jugu lar Central venous infusion port is new from previous. The heart is enlarged. There is mild pulmonary vascular congestion. There are small pleural effusions, right larger than left with bibasilar consolidation. No pneumothorax is seen. The bony thorax is grossly intact. IMPRESSION: 1. Cardiomegaly with mild pulmonary vascular congestion. 2. Right larger than left pleural effusions with dependent consolidation. This likely represents atelectasis and clinical correlation will be required. ACT 112: Negative or not required by law. Electronically signed by: Daniel Alcantara M.D. 02/26/2022 11:45 AM Supervising Physician Co-Signing Physician Notes History and physical exam performed by me. History notable for 52-year-old man with history of multiple myeloma on chemo, CKD 3 and other medical problems who presents with fever, chills and cough. Reported upper respiratory symptoms and fever last week. Continue to have low-grade fever associated with chills in the evenings and for this he did not get chemo last week. Cough started 2 days ago with chills, nausea, an episode of diarrhea. On exam, General: Not in distress, +shivering Eyes: PERRL, conjunctivae normal, not pale, anicteric sclerae, EOM intact bilaterally ENMT: External ear and nose normal, oropharynx normal Respiratory: Normal respiratory effort, no respiratory distress, good air entry,no crackles Cardiovascular: RRR S1 S2 Gastrointestinal (Abdomen): Abdomen is not distended, soft, non-tender to palpation, no guarding, no palpable hepatosplenomegaly, normal bowel sounds Musculoskeletal: +bilateral pedal edema Genitourinary: No CVA tenderenss Neurologic: Alert and oriented x 3, No focal weakness, sensation grossly intact Psychiatric: Alert and oriented x 3, euthymic affect Labs notable for Hb 11.5, Cr of 1.75, Glucose of 274, trop HS 45.5 Biofire + for parainfluenza CXR noted cardiomegaly with mild pulm vasc congestion, R>L pleural effusion with dependent consolidation likely atelectasis Parainfluenza infection Considering patient immunosuppressed status, symptoms progressing over 1 week now, there is concern for secondary bacterial infection. Will cover with antibiotics for now. Supportive care Antitussive Change home diuretic po to IV for now Agree with other plans as detailed by Aria Guardado PA-C (1) Amyloidosis Amyloidosis type: unspecified amyloidosis Qualified Code(s): E85.9 - Amyloidosis, unspecified
[2022-02-26] MEDS ORDERED: DOXYCYCLINE HYCLATE 100 MG CAP PO STA (17:25)
[2022-02-26] MEDS ORDERED: cefTRIAXone SODIUM 2,000 MG/70 ML BAG IV STA (17:25)
[2022-02-26] MEDS ORDERED: FUROSEMIDE 40 MG/4 ML VIAL IV ONE (17:43)
[2022-02-26 17:59] LABS: Partial Thromboplastin Ratio 3.3; Prothrombin Time 20.9 Seconds (9.0-12.0)
[2022-02-26 18:00] LABS: Partial Thromboplastin Time 92.1 Seconds (21.0-31.0)
[2022-02-26] MEDS ORDERED: ACETAMINOPHEN 325 MG TAB ONE (18:10)
[2022-02-26] MEDS ORDERED: BENZONATATE 100 MG CAPSULE ONE (19:18)
[2022-02-26] MEDS ORDERED: GLUCOSE 10 TABS/TUBE PO PRN (20:15)
[2022-02-26] MEDS ORDERED: CARBOHYDRATES FOR HYPOGLYCEMIA PO PRN (20:15)
[2022-02-26] MEDS ORDERED: ONDANSETRON INJ 2 MG/ML 2 ML VIAL IV PRN (20:15)
[2022-02-26] MEDS ORDERED: POLYETHYLENE (MIRALAX) 17 GM PACK PO PRN (20:15)
[2022-02-26] MEDS ORDERED: ALBUTEROL HFA 8 GM INHALER INH PRN (20:15)
[2022-02-26] MEDS ORDERED: DEXTROSE 50% 50 ML SYRINGE IV PRN (20:15)
[2022-02-26] MEDS ORDERED: GLUCAGON FOR INJ 1 MG VIAL SQ PRN (20:15)
[2022-02-26] MEDS ORDERED: POTASSIUM CHLORIDE CRTAB 20 MEQ TABCR PO STA (20:15)
[2022-02-26] MEDS ORDERED: GLUCOSE 40% GEL 15 GM TUBE PO PRN (20:15)
[2022-02-26] MEDS ORDERED: ACETAMINOPHEN 325 MG TAB PO PRN (20:15)
[2022-02-26] MEDS ORDERED: WARFARIN SOD 2.5 MG TAB PO SCH (21:00)
[2022-02-26] MEDS: guaiFENesin 600 MG TABCR PO SCH (21:28)
[2022-02-26] MEDS: ACYCLOVIR 400 MG TAB PO SCH (21:29)
[2022-02-26] MEDS: GABAPENTIN 400 MG CAP PO SCH (21:30)
[2022-02-26] MEDS: DRONEDARONE HCL 400 MG TAB PO SCH (21:30)
[2022-02-26] MEDS: INSULIN ASPART PER UNIT SC SCH (21:34)
[2022-02-26] MEDS: INSULIN GLARGINE SOLOSTAR 100 UNITS/ML 3 ML PEN SC SCH (22:38)
[2022-02-27 04:28] LABS: Hematocrit (blood only) 35.7 % (42-52); Hemoglobin 11.9 g/dL (14.0-18.0); Mean Corpuscular Hemoglobin 33.2 pg (25-34); Mean Corpuscular Hgb Conc 33.3 g/dL (32-36); Mean Corpuscular Volume 99.7 fL (80-100); Mean Platelet Volume 10.4 fL (7.4-10.4); Nucleated RBC # (auto) 0.02 K/uL (0-0); Nucleated RBC % (auto) 0.2 %; Platelet Count 206 K/uL (130-400); RDW Standard Deviation 54.6 fL (36.4-46.3); Red Blood Count 3.58 M/uL (4.7-6.1); White Blood Count 9.57 K/uL (4.8-10.8)
[2022-02-27 04:37] LABS: Prothrombin Time 20.9 Seconds (9.0-12.0)
[2022-02-27 04:44] LABS: BUN Creatinine Ratio 16.1 (10-20); Calcium 8.5 mg/dl (8.5-10.1); Est GFR (African American) 53.3 ml/min; Potassium 3.6 mmol/L (3.5-5.1)
[2022-02-27] MEDS: MIDODRINE HCL 2.5 MG TAB PO SCH ×2 (05:46→13:14)
[2022-02-27] MEDS: BENZONATATE 100 MG CAPSULE PO PRN ×2 (06:07→13:14)
[2022-02-27] MEDS: guaiFENesin 600 MG TABCR PO SCH (08:42)
[2022-02-27] MEDS: GABAPENTIN 400 MG CAP PO SCH (08:42)
[2022-02-27] MEDS: ACYCLOVIR 400 MG TAB PO SCH (08:45)
[2022-02-27] MEDS: DRONEDARONE HCL 400 MG TAB PO SCH (08:45)
[2022-02-27] MEDS: INSULIN GLARGINE SOLOSTAR 100 UNITS/ML 3 ML PEN SC SCH (08:51)
[2022-02-27] MEDS: INSULIN ASPART PER UNIT SC SCH ×2 (08:56→13:10)
[2022-02-27] MEDS ORDERED: DOXYCYCLINE HYCLATE 100 MG CAP PO SCH (09:00)
[2022-02-27] MEDS ORDERED: ESCITALOPRAM OXALATE 10 MG TAB PO SCH (09:00)
[2022-02-27] MEDS ORDERED: FUROSEMIDE 40 MG/4 ML VIAL IV SCH (09:00)
[2022-02-27] MEDS ORDERED: DAPSONE 25 MG TAB PO SCH (09:00)
[2022-02-27] MEDS ORDERED: PANTOprazole 40 MG TAB PO SCH (09:00)
[2022-02-27] MEDS ORDERED: FOLIC ACID 400 MCG TAB PO SCH (09:00)
[2022-02-27] MEDS ORDERED: POTASSIUM CHLORIDE CRTAB 20 MEQ TABCR PO SCH (09:00)
--- NOTE | 2022-02-27 10:42 | Electrocardiogram Report ---
Test Reason : Blood Pressure : / mmHG Vent. Rate : 074 BPM Atrial Rate : 074 BPM P-R Int : 168 ms QRS Dur : 086 ms QT Int : 428 ms P-R-T Axes : 067 097 -83 degrees QTc Int : 475 ms Normal sinus rhythm Rightward axis ST and T wave abnormality, consider inferior ischemia Prolonged QT Abnormal ECG When compared with ECG of 26-FEB-2022 12:01, No significant change was found Confirmed by Clyde Costello ([id number]) on 02/27/2022 10:42:23 AM Referred By: REFERRED SELF Confirmed By:Clyde Costello
--- NOTE | 2022-02-27 14:47 | Discharge Summary ---
Date of Service February 27, 2022 Admission HPI Per Admitting Provider Patient is 52 y/o M with PMH multiple myeloma s/p stem cell transplantation, currently undergoing chemo, amyloidosis, steroid use, DM II, CKD III, atrial fibrillation on anticoagulation, diastolic dysunction, depression, DEBBY presented to ER with c/o fever. Patient reports past 2 days has been having fever and chills, cough that he is unable to expectorate anything. States nausea yesterday and loose stool yesterday. Today formed stools. He reports last week he had sore throat and low-grade fever and did not receive chemo. Today was to have chemo however had reported his fever and cough symptoms, so chemo was held. Patient had negative rapid COVID-19 testing today and was referred to ER. Patient reports his daughter had cough symptoms recently. Reports chronic BLE edema and on torsemide total 40mg daily. Follows with oncology Dr. Amaral in [place], he is on daratumumab. Patient reports low BP's and dizziness for past several months and is on midodrine with improvement. Denies diaphoresis, vomiting, melena, hematochezia, HILL, syncope, vision changes, neck pain, CP, SOB, orthopnea, palpitations, hemoptysis, choking, otalgia, rhinorrhea, abdominal pain, paresthesias, extremity weakness, rashes, urinary symptoms. Admission Exam Per Admitting Provider General: Not in distress, +shivering Eyes: PERRL, conjunctivae normal, not pale, anicteric sclerae, EOM intact bilaterally ENMT: External ear and nose normal, oropharynx normal Respiratory: Normal respiratory effort, no respiratory distress, good air entry,no crackles Cardiovascular: RRR S1 S2 Gastrointestinal (Abdomen): Abdomen is not distended, soft, non-tender to palpation, no guarding, no palpable hepatosplenomegaly, normal bowel sounds Musculoskeletal: +bilateral pedal edema Genitourinary: No CVA tenderenss Neurologic: Alert and oriented x 3, No focal weakness, sensation grossly intact Psychiatric: Alert and oriented x 3, euthymic affect Principal Diagnosis Parainfluenza infection Possible Pneumonia Discharge Exam GENERAL: Alert and oriented x3. NAD, on RA. HEENT: No pallor, no icterus. Pupils equal, round and reactive to light. Oral mucosa moist. NECK: No JVD, no neck masses. Rt chest iv access noted. HEART: S1 and S2 heard. Regular rate and rhythm. No murmur, no gallop. RESPIRATORY SYSTEM: Normal AP diameter. No accessory muscle use. No wheezing, no crackles. ABDOMEN: Soft, bowel sounds present, nontender, no distention. CENTRAL NERVOUS SYSTEM: No facial droop. Speech is clear. Obeys simple commands. Moves extremities. EXTREMITIES: 1+ BLE edema, no erythema seen. Discharge Data Allergies Allergy/AdvReac Type Severity Reaction Status Date / Time No Known Allergies Allergy Verified 02/26/22 16:13 Consultations 02/26/22 15:51 ED Decision to Admit Stat Hospital Course (1) Parainfluenza infection: (1) Fever: (2) Parainfluenza infection: Possible Pneumonia Patient is 52 y/o M with PMH multiple myeloma s/p stem cell transplantation, currently undergoing chemo, amyloidosis, steroid use, DM II, CKD III, atrial fibrillation on anticoagulation, diastolic dysfunction, depression, DEBBY presented to ER 02/26 with c/o low grade fever x 2 days. Reported low grade fever last week as well In ER vitals stable. No leukocytosis, lactate: 1.8, procalcitonin: 0.15. Negative COVID-19 PCR. + Parainfluenza CXR: Cardiomegaly with mild pulmonary vascular congestion. Right larger than left pleural effusions with dependent consolidation. This likely represents atelectasis and clinical correlation will be required. Admitting Blood cultures pending Started Rocephin, doxycycline 02/26 --> cefdinir and doxy on DC. Guaifenesin, Tessalon Perles as needed CBC and CMP as OP in 3-5 days upon DC. (3) Multiple myeloma: (4) Amyloidosis: Plan: Follows with Oncology Dr Amaral in [place] Last chemo 03/11/2022 Continue home meds, maintain OP oncology f/u. Likely Acute on chronic diastolic heart failure High-sensitivity troponin: 45. [facility] chart review patient with chronically elevated high-sensitivity troponin 31-47. Trend troponin History echo 02/25/2022: EF: 50-55%, mild mitral regurgitation, mild tricuspid regurgitation, severe left atrial enlargement, RV systolic function reduced Denies chest pain Hold home torsemide, convert to IV Lasix and reassess tomorrow Monitor I's and O's, daily weight, low-sodium diet. FR 1800 ml. No crackles on exam, pt w/ no SOB, on Room air, comfortable moving around. DM II A1c: 5.2 on 01/01/2022 Random glucose 274 today Hold home meds Basal bolus insulin per protocol Paroxysmal atrial fibrillation Anticoagulated on Coumadin INR: 2.0 Continue Coumadin INR in a.m. CKD III Cr: 1.75. Baseline 1.5-1.8 DEBBY CPAP at bedtime DVT Prophylaxis On Coumadin. INR therapeutic Full Code Follows with Dr Garcia for routine care Following instruction communicated to the patient at the point of discharge: Follow-up with your primary care physician within a week time. For your viral respiratory infection and concern of likely superimposed bacterial infection, you will be discharged on oral antibiotics to complete 7- day course. Probiotics will be added for the same duration. Get your blood work CBC and CMP in 3 to 5 days upon discharge and have the results forwarded to your primary care physician. Maintain follow-up with oncology as an outpatient as prior. Maintain heart healthy diet and fluid restriciton of 1.8L/day. Take your medications as prescribed. Total Time Total Time Spent Total Time Spent (In Minutes): 40 Discharge Plan Discharge Items Patient Disposition: Home - Self-Care Reason For Visit: FEVER FOR 4 DAYS Discharge Diagnosis: Parainfluenza infection Possible Pneumonia Condition on Discharge: Good Activity: Resume your previous activity Non-emergency contact: Primary Care Provider Call non-emergency contact if: you have any medication questions and your temperature is above 101 Follow-up/Referrals: Jaime Garcia MD [Primary Care Provider] - Diet: Carb Consistent or DM2 and Low Sodium (2gm) Fluids: 1800ml (7 cups) Addtl Attending Provider Instructions: Follow-up with your primary care physician within a week time. For your viral respiratory infection and concern of likely superimposed bacterial infection, you will be discharged on oral antibiotics to complete 7- day course. Probiotics will be added for the same duration. Get your blood work CBC and CMP in 3 to 5 days upon discharge and have the results forwarded to your primary care physician. Maintain follow-up with oncology as an outpatient as prior. Maintain heart healthy diet and fluid restriciton of 1.8L/day. Take your medications as prescribed. Pending Studies at Discharge: No Stand-Alone Forms: [facility], Smoking Cessation Medications and DC Order Prescriptions: New doxycycline hyclate 100 mg Capsule 100 mg PO BID 6 Days Qty: 12 RF: 0 acetaminophen 325 mg Tablet 650 mg PO Q6H PRN (Reason: fever or pain) Qty: 30 RF: 0 benzonatate 100 mg Capsule 100 mg PO TID PRN (Reason: cough) 7 Days Qty: 21 RF: 0 guaifenesin [Mucinex] 600 mg Tablet Extended Release 12hr 600 mg PO Q12 7 Days Qty: 14 RF: 0 cefdinir 300 mg capsule 300 mg PO BID 6 Days Qty: 12 RF: 0 Probiotic 3 billion cell capsule 3,000 mmu cells PO DAILY 10 Days Qty: 10 RF: 0 Continued acyclovir 400 mg Tablet 400 mg PO BID RF: 0 albuterol sulfate [Ventolin HFA] 90 mcg/actuation Hfa Aerosol Inhaler 2 puff INHALATION Q4H PRN (Reason: Cough) RF: 0 escitalopram oxalate [Lexapro] 10 mg Tablet 10 mg PO QAM RF: 0 Multaq 400 mg Tablet 400 mg PO BID RF: 0 torsemide 20 mg Tablet 40 mg PO BID RF: 0 potassium chloride 10 mEq Tablet Extended Release 20 meq PO DAILY RF: 0 pantoprazole 20 mg Tablet,Delayed Release (Dr/Ec) 20 mg PO DAILY RF: 0 gabapentin 400 mg Capsule 800 mg PO BID RF: 0 midodrine 5 mg tablet 5 mg PO BID RF: 0 folic acid 400 mcg tablet 400 mcg PO DAILY RF: 0 dapsone 25 mg tablet 25 mg PO DAILY RF: 0 tenofovir disoproxil fumarate 300 mg tablet 300 mg PO QAM RF: 0 Ozempic 0.25 mg or 0.5 mg(2 mg/1.5 mL) Pen Injector 0.5 mg SUBCUT WK RF: 0 warfarin 2.5 mg tablet See Rx Instructions .ROUTE .COMPLEX RF: 0 Repatha SureClick 140 mg/mL pen injector 140 mg SUBCUT UD RF: 0 Discharge Orders: Discharge Order (Routine); Ordered 02/27/22 Ordered By: Etta Bennett/Other Patient Handouts: Managing Type 2 Diabetes Admission Data Admit Date/Time: 02/26/22 17:09 Attending Provider: Etta Carroll Admit Provider: Ashwini Marquez I. Primary Care Provider: Jaime Garcia Other Providers: Antoinette Gil
[2022-02-27] MEDS ORDERED: cefTRIAXone SODIUM 2,000 MG in DEXTROSE 5% 50 ML IV SCH (16:00)
[2022-02-27] MEDS ORDERED: WARFARIN SOD 1.25 MG TAB PO SCH (16:00)
[2022-02-28] MEDS ORDERED: WARFARIN SOD 2.5 MG TAB PO SCH (16:00)
== END 2022-02-27 17:05 | disposition home or self-care (01) ==
LOC: 2N 11:00 → ED 11:00 → SUATTDRO 17:09 → 2N 19:44

== ENCOUNTER 2022-06-08 09:08 | Inpatient (IN) ==
--- NOTE | 2022-06-08 09:46 | Emergency Department Note ---
History of Present Illness General Chief complaint: Dizziness Stated complaint: passing out, lightheaded, Time Seen by Provider: 06/08/22 09:28 Source: patient, family (Friend is at the bedside), RN notes reviewed and old records reviewed Mode of arrival: ambulatory Limitations: no limitations History of Present Illness This patient is a 52-year-old male who has a history of A. fib, chronic anticoagulation, diabetes, multiple myeloma among other medical problems, comes in after passing out. He is passed out 2 times last 3 days the most recent was at 5:00 this morning he was walking up the stairs got dizzy and fell against a nightstand. He said he also passed out a couple days ago while he was walking. He says he gets dyspneic on exertion but not consistently though some has been more chronic he says. He has no shortness of breath when laying flat he thinks his edema in his legs is gotten little bit worse. He denies any headache or fever no focal numbness or weakness he is on chronic anticoagulant elation with Coumadin he does not have any blood or black coloration of stool he denies any complaints at present and had no injuries. He has a history of paroxysmal A. fib but says he can feel when he is in it and has not had any rapid heart rates or sensation of A. fib. No palpitations lately. No fever or chills or cough. He did have COVID in April Home Medications Medication Instructions Recorded Confirmed Type acyclovir 400 mg tablet 400 mg PO BID 05/16/18 06/08/22 History albuterol sulfate 90 mcg/actuation 2 puff inhalation Q4H PRN Cough 05/16/18 06/08/22 History aerosol inhaler (Ventolin HFA) dronedarone 400 mg tablet (Multaq) 400 mg PO BID 05/16/18 06/08/22 History escitalopram oxalate 10 mg tablet 10 mg PO QAM 05/16/18 06/08/22 History (Lexapro) pantoprazole 20 mg tablet,delayed 20 mg PO DAILY 09/02/20 06/08/22 History release potassium chloride 10 mEq 20 meq PO DAILY 09/02/20 06/08/22 History tablet,extended release torsemide 20 mg tablet 40 mg PO BID 09/02/20 06/08/22 History dapsone 25 mg tablet 25 mg PO DAILY 02/26/22 06/08/22 History evolocumab 140 mg/mL subcutaneous 140 mg subcut UD 02/26/22 06/08/22 History pen injector (Sherry Doran) folic acid 400 mcg tablet 400 mcg PO DAILY 02/26/22 06/08/22 History gabapentin 400 mg capsule 800 mg PO BID 02/26/22 06/08/22 History midodrine 5 mg tablet 5 mg PO BID 02/26/22 06/08/22 History semaglutide 0.25 mg or 0.5 mg (2 0.5 mg subcut WK 02/26/22 06/08/22 History mg/1.5 mL) subcutaneous pen injector (Ozempic) tenofovir disoproxil fumarate 300 300 mg PO QAM 02/26/22 06/08/22 History mg tablet warfarin 2.5 mg tablet See Rx Instructions .Route .COMPLEX 02/26/22 06/08/22 History acetaminophen 325 mg tablet 650 mg PO Q6H PRN fever or pain 02/27/22 06/08/22 Rx #30 tabs Ivig 1 dose IV DIRECTED 06/08/22 06/08/22 History carfilzomib 10 mg intravenous 10 mg IV DIRECTED CHEMO 06/08/22 06/08/22 History solution daratumumab 20 mg/mL intravenous 20 mg IV DIRECTED 06/08/22 06/08/22 History solution Allergies Allergy/AdvReac Type Severity Reaction Status Date / Time No Known Allergies Allergy Verified 02/26/22 16:13 Past Med/Surg History Medical History Amyloidosis dx 2018; follows with [facility] Atrial fibrillation Chronic diastolic CHF (congestive heart failure) History of depression Multiple myeloma dx 2013; follows with Dr. Rosalio Rodriges 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 Mother No problems noted. Social History Smoking Status: Former smoker Second Hand Exposure: No; Do You Dip or Chew Tobacco: Yes; Hx Alcohol Use: No Hx Substance Use: No Preferred Language: Indonesian Communication Ability: Effective Medical Advisor Required: No Beliefs That Will Affect Care: None marital status details: twice - 3 children in total between the 2 marriages Current Living Situation: Spouse Current Living Situation Comment: lives in [place] current occupational status: disabled current occupation: previously worked at [employer] Other Information That Helps Us Care for You: No Feels Safe at Home: Yes Safety Concerns: Feels Safe At This Time Assistive Devices: None Review of Systems A total of 10 systems reviewed and were otherwise negative Physical Exam Vital Signs Vital Signs - 24 hr 06/08/22 09:10 06/08/22 09:09 06/08/22 09:09 Temperature 36.5 C Temperature Source Temporal Artery Scan Pulse Rate 77 Pulse Rate [Apical] Pulse Rate from SpO2 Sensor Pulse Rhythm Pulse Rhythm [Apical] Respiratory Rate 18 16 Respiratory Effort / Characteristics Non-Labored Respiratory Depth Normal Respiratory Pattern Regular Blood Pressure 129/83 Blood Pressure [Left Arm] Blood Pressure Mean 98 Blood Pressure Mean [Left Arm] Blood Pressure Position Sitting Blood Pressure Position [Left Arm] Pulse Oximetry 98 98 98 Oxygen Delivery Method Room Air Room Air Room Air Oxygen Flow Rate 0 Sepsis Recent Fever Within 48 Hours No Sepsis New/Unexplained Change in Mental Status No Sepsis Action Taken by Nursing No Action Required 06/08/22 09:40 06/08/22 10:17 06/08/22 09:35 Temperature Temperature Source Pulse Rate 74 71 Pulse Rate [Apical] 70 Pulse Rate from SpO2 Sensor Pulse Rhythm Regular Pulse Rhythm [Apical] Regular Respiratory Rate 16 16 16 Respiratory Effort / Characteristics Non-Labored Respiratory Depth Normal Respiratory Pattern Regular Blood Pressure Blood Pressure [Left Arm] 122/86 Blood Pressure Mean Blood Pressure Mean [Left Arm] 98 Blood Pressure Position Blood Pressure Position [Left Arm] Lying Pulse Oximetry 98 97 Oxygen Delivery Method Room Air Room Air Oxygen Flow Rate Sepsis Recent Fever Within 48 Hours Sepsis New/Unexplained Change in Mental Status Sepsis Action Taken by Nursing 06/08/22 09:40 06/08/22 09:40 06/08/22 09:50 Temperature Temperature Source Pulse Rate 71 71 Pulse Rate [Apical] Pulse Rate from SpO2 Sensor 71 70 Pulse Rhythm Pulse Rhythm [Apical] Respiratory Rate 22 22 Respiratory Effort / Characteristics Respiratory Depth Respiratory Pattern Blood Pressure 124/73 Blood Pressure [Left Arm] Blood Pressure Mean 90 Blood Pressure Mean [Left Arm] Blood Pressure Position Blood Pressure Position [Left Arm] Pulse Oximetry 99 99 Oxygen Delivery Method Oxygen Flow Rate Sepsis Recent Fever Within 48 Hours Sepsis New/Unexplained Change in Mental Status Sepsis Action Taken by Nursing 06/08/22 10:00 06/08/22 10:10 06/08/22 10:27 Temperature Temperature Source Pulse Rate 73 72 68 Pulse Rate [Apical] Pulse Rate from SpO2 Sensor 79 Pulse Rhythm Pulse Rhythm [Apical] Respiratory Rate 21 28 H 10 L Respiratory Effort / Characteristics Respiratory Depth Respiratory Pattern Blood Pressure Blood Pressure [Left Arm] Blood Pressure Mean Blood Pressure Mean [Left Arm] Blood Pressure Position Blood Pressure Position [Left Arm] Pulse Oximetry 96 Oxygen Delivery Method Oxygen Flow Rate Sepsis Recent Fever Within 48 Hours Sepsis New/Unexplained Change in Mental Status Sepsis Action Taken by Nursing 06/08/22 10:30 06/08/22 10:30 06/08/22 10:40 Temperature Temperature Source Pulse Rate 67 71 Pulse Rate [Apical] Pulse Rate from SpO2 Sensor 67 71 Pulse Rhythm Pulse Rhythm [Apical] Respiratory Rate 20 20 Respiratory Effort / Characteristics Respiratory Depth Respiratory Pattern Blood Pressure 124/75 Blood Pressure [Left Arm] Blood Pressure Mean 91 Blood Pressure Mean [Left Arm] Blood Pressure Position Blood Pressure Position [Left Arm] Pulse Oximetry 97 97 Oxygen Delivery Method Oxygen Flow Rate Sepsis Recent Fever Within 48 Hours Sepsis New/Unexplained Change in Mental Status Sepsis Action Taken by Nursing 06/08/22 10:50 06/08/22 11:00 06/08/22 11:00 Temperature Temperature Source Pulse Rate 67 66 Pulse Rate [Apical] Pulse Rate from SpO2 Sensor 67 66 Pulse Rhythm Pulse Rhythm [Apical] Respiratory Rate 16 21 Respiratory Effort / Characteristics Respiratory Depth Respiratory Pattern Blood Pressure 119/80 Blood Pressure [Left Arm] Blood Pressure Mean 93 Blood Pressure Mean [Left Arm] Blood Pressure Position Blood Pressure Position [Left Arm] Pulse Oximetry 98 98 Oxygen Delivery Method Oxygen Flow Rate Sepsis Recent Fever Within 48 Hours Sepsis New/Unexplained Change in Mental Status Sepsis Action Taken by Nursing 06/08/22 11:10 06/08/22 11:20 06/08/22 11:30 Temperature Temperature Source Pulse Rate 65 68 Pulse Rate [Apical] Pulse Rate from SpO2 Sensor 65 67 Pulse Rhythm Pulse Rhythm [Apical] Respiratory Rate 18 17 Respiratory Effort / Characteristics Respiratory Depth Respiratory Pattern Blood Pressure 112/76 Blood Pressure [Left Arm] Blood Pressure Mean 88 Blood Pressure Mean [Left Arm] Blood Pressure Position Blood Pressure Position [Left Arm] Pulse Oximetry 97 98 Oxygen Delivery Method Oxygen Flow Rate Sepsis Recent Fever Within 48 Hours Sepsis New/Unexplained Change in Mental Status Sepsis Action Taken by Nursing 06/08/22 11:30 06/08/22 11:40 Temperature Temperature Source Pulse Rate 67 64 Pulse Rate [Apical] Pulse Rate from SpO2 Sensor 67 Pulse Rhythm Pulse Rhythm [Apical] Respiratory Rate 11 L 18 Respiratory Effort / Characteristics Respiratory Depth Respiratory Pattern Blood Pressure Blood Pressure [Left Arm] Blood Pressure Mean Blood Pressure Mean [Left Arm] Blood Pressure Position Blood Pressure Position [Left Arm] Pulse Oximetry 97 Oxygen Delivery Method Oxygen Flow Rate Sepsis Recent Fever Within 48 Hours Sepsis New/Unexplained Change in Mental Status Sepsis Action Taken by Nursing General: Well developed well nourished middle-age male who appears in no acute distress, breathing comfortably on room air. Normal speech HEENT: Normal cephalic atraumatic. Pupils are equal round and reactive to light. Extraocular movements are intact. Oropharynx is pink with moist mucous membranes. No swelling of the mouth lips or tongue. Neck: Supple with a midline trachea. No meningeal signs or stiffness, no JVD or bruits. No Stridor. Chest: Clear to auscultation bilaterally. No wheezes or rhonchi. No increased work of breathing. Heart: Regular rate and rhythm without murmurs or gallops. Abdomen: Soft nontender, nondistended without rebound guarding or rigidity. Extremities: No cyanosis clubbing. 1+ bilateral edema. No calf tenderness or assymetry Spine/Back. Non tender to palpation. No CVA tenderness Skin: Good turgor without rashes. Neurologic exam: Cranial nerves two through 12 are intact. Motor and sensation are intact and symmetrical throughout. Course Administered Medications Midodrine (Midodrine Hcl 2.5 Mg Tab) 5 mg PO BID17 [facility] Stop: 07/08/22 16:59 Last Admin: 06/08/22 16:24 Dose: 5 mg Documented By: GILMER Warfarin Sodium (Warfarin Sod 1.25 Mg Tab) 1.25 mg PO TuSa@1600 [facility] Stop: 07/08/22 15:59 Last Admin: 06/08/22 16:25 Dose: 1.25 mg Documented By: GILMER Medical Decision Making Differential Diagnosis Syncope, arrhythmia, CHF, anemia, neurologic process, electrolyte or metabolic abnormality, medication side effect, COVID Medical Records Attestation: I reviewed the patient's medical records. Home Medications Current Medication List: was personally reviewed by me Laboratory Data Attestation: I reviewed the patient's lab results. Result diagrams: 06/08/22 09:37 06/08/22 09:37 Lab Results 06/08/22 06/08/22 06/08/22 Range/Units 09:37 09:37 09:37 WBC 9.14 (4.8-10.8) K/ul RBC 3.49 L (4.63-6.08) M/uL Hgb 11.7 L (14.0-18.0) g/dl Hct 34.2 L (40.1-51.0) % MCV 98.0 (80.0-100.0) fL MCH 33.5 (25.0-34.0) pg MCHC 34.2 (32.0-36.0) g/dL RDW Std Deviation 58.4 H (36.4-46.3) fL RDW Coeff of Tobi 16.8 H (11.5-14.5) % Plt Count 156 (130-400) K/uL MPV 11.1 (9.4-12.4) fL Immature Gran % (Auto) 1.8 % Neut % (Auto) 82.1 % Lymph % (Auto) 3.1 % [place] % (Auto) 10.4 % Eos % (Auto) 2.3 % Baso % (Auto) 0.3 % Neut # (Auto) 7.51 H (1.4-6.5) K/uL Lymph # (Auto) 0.28 L (1.2-3.4) K/uL [place] # (Auto) 0.95 H (0.24-0.82) K/uL Eos # (Auto) 0.21 (0-0.50) K/uL Baso # (Auto) 0.03 (0-0.2) K/uL Immature Gran # (Auto) 0.16 H (0.00-0.02) K/uL Absolute Nucleated RBC 0.30 H (0-0) K/uL Nucleated RBC % (auto) 3.3 % Polychromasia 1+ PT 27.8 H (9.0-12.0) Seconds INR 2.8 H (0.9-1.1) APTT 38.7 H (21.0-31.0) Seconds PTT Ratio 1.4 Sodium 135 L (136-145) mmol/L Potassium 3.9 (3.5-5.1) mmol/L Chloride 102 (98-107) mmol/L Carbon Dioxide 25 (21-32) mmol/L Anion Gap 8 (3-11) BUN 41 H (6-23) mg/dl Creatinine 2.06 H (0.6-1.4) mg/dl Est Cr Clr Drug Dosing 46.8 ml/min Est GFR ( Amer) 41.7 ml/min Est GFR (Non-Af Amer) 36.0 ml/min BUN/Creatinine Ratio 19.9 (10-20) Glucose 217 H (70-99(Fasting)) mg/dl Calcium 8.9 (8.5-10.1) mg/dl Magnesium 2.1 (1.7-2.4) mg/dl Total Bilirubin 0.7 (0.2-1.0) mg/dl AST 10 L (13-39) U/L ALT 14 (7-52) U/L Alkaline Phosphatase 81 (34-104) U/L Troponin I High Sens 30.0 H D (0-20) pg/ml B-Natriuretic Peptide (0-100) pg/ml Total Protein 5.6 L (6.0-8.3) gm/dl Albumin 3.5 (3.4-5.0) gm/dl Globulin 2.1 L (2.5-4.0) gm/dl Albumin/Globulin Ratio 1.7 (0.9-2) Lipase 84 H (11-82) U/L SARS-CoV-2, RNA, NAAT (NEGATIVE) 06/08/22 06/08/22 06/08/22 Range/Units 09:37 09:37 09:57 WBC (4.8-10.8) K/ul RBC (4.63-6.08) M/uL Hgb (14.0-18.0) g/dl Hct (40.1-51.0) % MCV (80.0-100.0) fL MCH (25.0-34.0) pg MCHC (32.0-36.0) g/dL RDW Std Deviation (36.4-46.3) fL RDW Coeff of Tobi (11.5-14.5) % Plt Count (130-400) K/uL MPV (9.4-12.4) fL Immature Gran % (Auto) % Neut % (Auto) % Lymph % (Auto) % [place] % (Auto) % Eos % (Auto) % Baso % (Auto) % Neut # (Auto) (1.4-6.5) K/uL Lymph # (Auto) (1.2-3.4) K/uL [place] # (Auto) (0.24-0.82) K/uL Eos # (Auto) (0-0.50) K/uL Baso # (Auto) (0-0.2) K/uL Immature Gran # (Auto) (0.00-0.02) K/uL Absolute Nucleated RBC (0-0) K/uL Nucleated RBC % (auto) % Polychromasia PT (9.0-12.0) Seconds INR (0.9-1.1) APTT (21.0-31.0) Seconds PTT Ratio Sodium (136-145) mmol/L Potassium (3.5-5.1) mmol/L Chloride (98-107) mmol/L Carbon Dioxide (21-32) mmol/L Anion Gap (3-11) BUN (6-23) mg/dl Creatinine (0.6-1.4) mg/dl Est Cr Clr Drug Dosing ml/min Est GFR ( Amer) ml/min Est GFR (Non-Af Amer) ml/min BUN/Creatinine Ratio (10-20) Glucose (70-99(Fasting)) mg/dl Calcium (8.5-10.1) mg/dl Magnesium Cancelled (1.7-2.4) mg/dl Total Bilirubin (0.2-1.0) mg/dl AST (13-39) U/L ALT (7-52) U/L Alkaline Phosphatase (34-104) U/L Troponin I High Sens (0-20) pg/ml B-Natriuretic Peptide 783 H (0-100) pg/ml Total Protein (6.0-8.3) gm/dl Albumin (3.4-5.0) gm/dl Globulin (2.5-4.0) gm/dl Albumin/Globulin Ratio (0.9-2) Lipase (11-82) U/L SARS-CoV-2, RNA, NAAT NEGATIVE (NEGATIVE) Imaging Data Attestation: I personally reviewed and interpreted this imaging study as follows: My Impression: Chest x-rayno acute infiltrate, failure, pneumothorax. There is a small pleural effusion on the right CT of the head: No hemorrhage or mass-effect seen. Radiologist's Impression: Chest X-Ray 06/08/22 09:40 XR chest 1V portable CLINICAL HISTORY: Chest Pain TECHNIQUE: Single frontal radiograph of the chest was obtained. Comparison: Comparison is made to chest radiograph 02/26/2022 FINDINGS: A port catheter is seen. Cardiomegaly is noted. The lungs are clear. There is a small right pleural effusion. IMPRESSION: Small right pleural effusion. Stable cardiomegaly. No airspace disease. ACT 112: Negative or not required by law. Electronically signed by: Eddie Tinoco M.D. 06/08/2022 9:[address] 06/08/22 09:40 CT SCAN OF THE BRAIN WITHOUT IV CONTRAST CLINICAL HISTORY: Dizziness. COMPARISON STUDY: No priors. TECHNIQUE: Unenhanced axial CT scan of the brain is performed from the vertex to the skull base. A dose lowering technique was utilized adhering to the principles of ALARA. CT DOSE: 537.48 mGy.cm FINDINGS: Brain parenchyma: The brain parenchyma is normal in appearance. There is no hemorrhage, mass effect, or evidence of acute territorial ischemia by CT criteria. Fenton-white matter differentiation is preserved. No extra-axial fluid collection is seen. Ventricles, sulci, cisterns: Normal in configuration. Intracranial vasculature: There is mild atherosclerotic calcification of the cavernous carotid arteries. Calvarium: Unremarkable. Sinuses and mastoids: The visualized paranasal sinuses are clear. The mastoid air cells are well pneumatized. Orbits: The bony orbits are grossly intact. IMPRESSION: No acute intracranial abnormality. ACT 112: Negative or not required by law. Electronically signed by: Daniel Alcantara M.D. 06/08/2022 10:34 AM ECG Data Attestation: I personally reviewed and interpreted this ECG as follows: Indication: + syncope Rate (beats per minute): 71 Rhythm: + normal sinus ECG Intervals/blocks: + Normal QRS, + Normal QT and + Normal UT ECG [place]: + Right axis deviation ECG ST segments: + Normal ST segments ECG Findings: + Poor R wave progression and + Other (Low voltage) Comparison ECG Date: from (02/27/22) Change: no significant change MDM Narrative This patient comes in after having a syncopal episode. He also had a episode h 3 days ago when he passed out. He says he typically does not pass out. He has multiple medical problems which are of concern. He is on Coumadin, I did order multiple blood testing, EKG, chest x-ray and head CT. His vital signs are stable upon arrival. EKG does not show any changes when compared to old. Troponins mildly elevated however he tends to run chronically that way. Same thing with a BNP is elevated I do think he clinically may have a degree of fluid overload as he does have some peripheral edema. His creatinine is elevated compared to baseline however which suggests he could be a little dry even. COVID testing was negative. He was therapeutic on his Coumadin. CAT scan of his head is unremarkable. I do think he needs to be admitted for further treatment and [facility]. Continuous cardiac monitoring: Orders placed in EMR for continuous cardiac monitoring. Upon my interpretation he was in normal sinus rhythm with a rate of 70 Impression & Plan Syncope, Amyloidosis, Chronic diastolic CHF (congestive heart failure), Current use of senior living anticoagulation, Lab test negative for COVID-19 virus Discharge Plan Visit Data Chief Complaint: Dizziness Stated Complaint: passing out, lightheaded, ED Provider: José Luis Moser Discharge Problem: Syncope, Amyloidosis, Chronic diastolic CHF (congestive heart failure), Current use of senior living anticoagulation, Lab test negative for COVID-19 virus Patient Disposition: Admitted As Inpatient Discharge Instructions Interventions: ED Discharge Assessment Last Done: 06/08/22 13:59
[2022-06-08 09:50] LABS: Basophils # (auto) 0.03 K/uL (0-0.2); Basophils % (auto) 0.3 %; Eosinophils # (auto) 0.21 K/uL (0-0.50); Eosinophils % (auto) 2.3 %; Hematocrit (blood only) 34.2 % (40.1-51.0); Hemoglobin 11.7 g/dl (14.0-18.0); Immature Granulocytes # (auto) 0.16 K/uL (0.00-0.02); Immature Granulocytes % (auto) 1.8 %; Lymphocytes # (auto) 0.28 K/uL (1.2-3.4); Lymphocytes % (auto) 3.1 %; Mean Corpuscular Hemoglobin 33.5 pg (25.0-34.0); Mean Corpuscular Hgb Conc 34.2 g/dL (32.0-36.0); Mean Platelet Volume 11.1 fL (9.4-12.4); Monocytes # (auto) 0.95 K/uL (0.24-0.82); Monocytes % (auto) 10.4 %; Neutrophils # (auto) 7.51 K/uL (1.4-6.5); Neutrophils % (auto) 82.1 %; Nucleated RBC % (auto) 3.3 %; Platelet Count 156 K/uL (130-400); RDW Coefficient of Variation 16.8 % (11.5-14.5); RDW Standard Deviation 58.4 fL (36.4-46.3); Red Blood Count 3.49 M/uL (4.63-6.08); White Blood Count 9.14 K/ul (4.8-10.8)
--- NOTE | 2022-06-08 09:59 | XRay Report ---
XR chest 1V portable CLINICAL HISTORY: Chest Pain TECHNIQUE: Single frontal radiograph of the chest was obtained. Comparison: Comparison is made to chest radiograph 02/26/2022 FINDINGS: A port catheter is seen. Cardiomegaly is noted. The lungs are clear. There is a small right pleural e ffusion. IMPRESSION: Small right pleural effusion. Stable cardiomegaly. No airspace disease. ACT 112: Negative or not required by law. Electronically signed by: Eddie Tinoco M.D. 06/08/2022 9:57 AM
[2022-06-08 10:01] LABS: INR 2.8 (0.9-1.1); Partial Thromboplastin Ratio 1.4; Partial Thromboplastin Time 38.7 Seconds (21.0-31.0); Prothrombin Time 27.8 Seconds (9.0-12.0)
[2022-06-08 10:14] LABS: Albumin Globulin Ratio 1.7 (0.9-2); Albumin Level 3.5 gm/dl (3.4-5.0); BUN Creatinine Ratio 19.9 (10-20); Bilirubin,Total 0.7 mg/dl (0.2-1.0); Calcium 8.9 mg/dl (8.5-10.1); Creatinine Clr Calc Pharmacy 46.8 ml/min; Est GFR (African American) 41.7 ml/min; Globulin 2.1 gm/dl (2.5-4.0); Potassium 3.9 mmol/L (3.5-5.1); Total Protein 5.6 gm/dl (6.0-8.3)
[2022-06-08 10:20] LABS: Polychromasia 1+
[2022-06-08 10:29] LABS: Magnesium 2.1 mg/dl (1.7-2.4)
--- NOTE | 2022-06-08 10:35 | CT Scan Report ---
CT SCAN OF THE BRAIN WITHOUT IV CONTRAST CLINICAL HISTORY: Dizziness. COMPARISON STUDY: No priors. TECHNIQUE: Unenhanced axial CT scan of the brain is performed from the vertex to the skull base. A d ose lowering technique was utilized adhering to the principles of ALARA. CT DOSE: 537.48 mGy.cm FINDINGS: Brain parenchyma: The brain parenchyma is normal in appearance. There is no hemorrhage, mass effect, or evidence of acute territorial ischemia by CT criteria. Fenton-white matter differentiation is preser [place]. No extra-axial fluid collection is seen. Ventricles, sulci, cisterns: Normal in configuration. Intracranial vasculature: There is mild atherosclerotic calcification of the cavernous carotid arteri es. Calvarium: Unremarkable. Sinuses and mastoids: The visualized paranasal sinuses are clear. The mastoid air cells are well pneu matized. Orbits: The bony orbits are grossly intact. IMPRESSION: No acute intracranial abnormality. ACT 112: Negative or not required by law. Electronically signed by: Daniel Alcantara M.D. 06/08/2022 10:34 AM
--- NOTE | 2022-06-08 11:01 | History & Physical Report ---
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 ECHO done, Cards and Nephro on board. Nephrotoxic meds held; getting in touch with heme/onc team in [place] for further direction on holding certain chemo regimen agents. Syncope and Collapse: Chronic Diastolic CHF: Hypotension: -two syncopal episodes in last 48 hours; no trauma -LOC both times for a few minutes. -Exam does not lead to suspect ischemic event occured. -Head CT negative -New KARIMI with stairs; new B/L LE edema. He had an OPT CXR on 06/05 showing pleural effusions; repeat here shows the same. -Pt follows with [facility] Dr Nam and also Tim Ruiz PA-C -Has had a heart catheterization in 01/2018: LV pressures elevated -BNP 783. Trop 30.0; trend; chronically elevated BNP and Troponin. -Cards consult placed and discussed with Dr. Stout; appreciate input. Will hold off on diuresing for now. -Echo results show reduced EF from last ECHO reviewed; EF now 45-50%, moderate RV hypertrophy, trace mitral regurgitation. -Consider stress test. -Takes Midodrine for hypotension; continue per Cards reccs. -CXR in AM -orthostatic BPs ordered Amyloidosis: Acute renal failure superimposed on CKD3 -Baseline Creatinine 1.7--> now 2.06 -Concerned for nephrotic syndrome. UA shows trace proteinuria -Receives IVIG Q 4 weeks. -Nephro consult placed; discussed with Dr. Reddy Multiple Myeloma: Peripheral Neuropathy: -Diagnosed in 2013. Was following with Dr. Rodriges; now follows Dr. Amaral in [facility] WB/Tay Q 3 months via telemed -Current regimen is: Carfilzomib and Daratumumab 400mg/20mL IV biweekly. Last infusion was 06/04; receives his chemo at [facility] -In process of discussing with Dr. Amaral for further instructions; called his office to discuss holding specific chemo regimen agents. ([phone]) Left a message with his front office -Takes Dapsone (new Rx) and Acyclovir; hold as nephrotoxic but would like to further discuss with his heme/onc -Takes Gabapentin 800 mg in AM; 800 mg in PM. While not entirely nephrotoxic, need to consider accumulation with increasing creat. Took AM dose; will hold for now. Await further review by Nephro. pAF: snf use of anticoagulants: -Currently NSR -On Chronic Coumadin. -INR 2.8 ; will trend in AM -Takes Multaq (dronedarone); continue -Cards on board DM2: -Diet control and also takes Ozempic; hold and place on SSI. -Ac/HS checks; heart healthy diet. -moderate glycemic stress -CF 25; CHO4 9 -goal range: 110-140 -A1C in the morning; no recent reference H/O Hepatitis B: -Stable; Takes Tenofovir; hold due to Nephrotoxicity HLD: -On Repatha SQ biweekly. -Lipid panel in AM. Urinary retention: Follows with Urology Recently started on tamsulosin; only new medication. Hold for now. Depression: -stable; takes Lexapro; continue GERD: -Continue Pantoprazole Disposition: PCP: De. Garcia Diet: Heart Healthy VTE prophylaxis: TEDS - also on Coumadin Point of Contact: Haley, History of Present Illness Chief Complaint: syncope Primary Care Provider: Jaime Garcia MD Mr. Ochoa is a 52 year old male with PMH ofLambda light chainMultiple myeloma (2013) s/p autologous stem cell transplantation in 2015, Cardiac AL Amyloidosis (followed with Dr. Nam at [facility], now with Tim Ruiz PA-C ),CKDIII, A-fib( On Coumadin), DMII (on Ozempic), CAD, HLD, peripheral neuropathy, Chronic Hep B infectionwas evaluated in the ED for two syncopal episodes that he experienced over the past 2 days. Both times he does not remember falling either time and woke up on the floor in his bedroom. His RANDALL was there but it was not witnessed. He does not think he was on the floor more than a few minutes. When his consciousness returned he didn't know where he was. He looked around and then realized that he had fallen. He denies hitting his head, rather only hit his back on the nightstand. He denies any alcohol, or recreational drug use. He reports using chewing tobacco. Patient denies HILL, dizziness, blurry vision, CP, palpitations, N/V/D, skin changes, other falls. He does report feeling nauseated yesterday. He had a heart catheterization in 2018 where LV pressures were elevated. his last ECHO was 2017 and EF 65%. Patient goes to [facility] for his chemo and his last infusion was on TuesdayJune 04. He sees Dr. Amaral ([facility] in [place]) Q3 months via telemed. Patient will be admitted under Hospitalist service for further evaluation and management. Please see A/p for further details. Allergies Allergy/AdvReac Type Severity Reaction Status Date / Time No Known Allergies Allergy Verified 02/26/22 16:13 Home Medications Medication Instructions Recorded Confirmed Type acyclovir 400 mg tablet 400 mg PO BID 05/16/18 06/08/22 History albuterol sulfate 90 mcg/actuation 2 puff inhalation Q4H PRN Cough 05/16/18 06/08/22 History aerosol inhaler (Ventolin HFA) dronedarone 400 mg tablet (Multaq) 400 mg PO BID 05/16/18 06/08/22 History escitalopram oxalate 10 mg tablet 10 mg PO QAM 05/16/18 06/08/22 History (Lexapro) pantoprazole 20 mg tablet,delayed 20 mg PO DAILY 09/02/20 06/08/22 History release potassium chloride 10 mEq 20 meq PO DAILY 09/02/20 06/08/22 History tablet,extended release torsemide 20 mg tablet 40 mg PO BID 09/02/20 06/08/22 History dapsone 25 mg tablet 25 mg PO DAILY 02/26/22 06/08/22 History evolocumab 140 mg/mL subcutaneous 140 mg subcut UD 02/26/22 06/08/22 History pen injector (Sherry Doran) folic acid 400 mcg tablet 400 mcg PO DAILY 02/26/22 06/08/22 History gabapentin 400 mg capsule 800 mg PO BID 02/26/22 06/08/22 History midodrine 5 mg tablet 5 mg PO BID 02/26/22 06/08/22 History semaglutide 0.25 mg or 0.5 mg (2 0.5 mg subcut WK 02/26/22 06/08/22 History mg/1.5 mL) subcutaneous pen injector (Ozempic) tenofovir disoproxil fumarate 300 300 mg PO QAM 02/26/22 06/08/22 History mg tablet warfarin 2.5 mg tablet See Rx Instructions .Route .COMPLEX 02/26/22 06/08/22 History acetaminophen 325 mg tablet 650 mg PO Q6H PRN fever or pain 02/27/22 06/08/22 Rx #30 tabs Ivig 1 dose IV DIRECTED 06/08/22 06/08/22 History carfilzomib 10 mg intravenous 10 mg IV DIRECTED CHEMO 06/08/22 06/08/22 History solution daratumumab 20 mg/mL intravenous 20 mg IV DIRECTED 06/08/22 06/08/22 History solution Past Med/Surg History Medical History (Updated 06/08/22 @ 19:51 by Ana Reddy MD, PhD) Amyloidosis dx 2017; follows with [facility] Atrial fibrillation Chronic diastolic CHF (congestive heart failure) CKD (chronic kidney disease) stage 3, GFR 30-59 ml/min Diabetes type 2, uncontrolled History of depression Multiple myeloma dx 2013; 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 Mother No problems noted. Social History Smoking Status: Former smoker Second Hand Exposure: No; Do You Dip or Chew Tobacco: Yes; Hx Alcohol Use: No Hx Substance Use: No Preferred Language: Greek Communication Ability: Effective Manager Entry Required: No Beliefs That Will Affect Care: None marital status: marital status details: twice - 3 children in total between the 2 marriages Current Living Situation: Spouse Current Living Situation Comment: lives in [place] current occupational status: disabled current occupation: previously worked at [employer] Other Information That Helps Us Care for You: No Feels Safe at Home: No Is there a partner from a previous relationship who is making you feel unsafe now?: No Any Concerns about Your Family Situation: No Would You Like to Speak to Someone About Your Situation: No Safety Concerns: Feels Safe At This Time Assistive Devices: CPAP and Oxygen - at Night Review of Systems Review of Systems: Neuro: (-) Falls, trauma, slurred speech HEENT: (-) HILL, dizziness, dysphagia, visual or auditory changes CV: (-) CP, palpitations, (+) 1 BL LE swelling Resp: (-) SOB GI: (-) appetite changes, N/V/D, bowel changes : (-) urinary changes Skin: (-) rashes Psych: (-) anxiety, depression Physical Exam Physical Exam: Neuro: AAOx4, PERRLA, no aphagia, memory changes, CNII-XII grossly intact HEENT: head normocephalic, moist mucus membranes CV: S1/S2, (-) M/G/R, (+) 1 LE BL edema, cap refill < 3 seconds Resp: Lungs CTA in all jimenez. On RA GI: Abdomen S/NT/ND, Ax4 bowel sounds, (-) CVA tenderness Musculoskeletal: 5/5 B/L UE strength, 5/5 B/L LE strength. No gait disturbance Skin: (-) rashes , (-) erythema. Psych: euthymic mood Results & Data Results & Data ([facility]) Vital Signs (Past 12 Hours) Vital Signs Temp Pulse Pulse Resp BP BP Pulse Ox 06/08/22 10:17 70 16 122/86 97 06/08/22 09:40 74 16 98 06/08/22 09:09 16 98 06/08/22 09:09 98 06/08/22 09:10 36.5 C 77 18 129/83 98 O2 Del Method O2 Flow Rate 06/08/22 10:17 Room Air 06/08/22 09:40 Room Air 06/08/22 09:09 Room Air 06/08/22 09:09 Room Air 0 06/08/22 09:10 Room Air Laboratory Results Short CBC 06/08/22 Range/Units 09:37 WBC 9.14 (4.8-10.8) K/ul Hgb 11.7 L (14.0-18.0) g/dl Hct 34.2 L (40.1-51.0) % Plt Count 156 (130-400) K/uL BMP 06/08/22 09:37 Sodium 135 L Potassium 3.9 Chloride 102 Carbon Dioxide 25 BUN 41 H Creatinine 2.06 H Glucose 217 H Calcium 8.9 Liver Function 06/08/22 Range/Units 09:37 Total Bilirubin 0.7 (0.2-1.0) mg/dl AST 10 L (13-39) U/L ALT 14 (7-52) U/L Alkaline Phosphatase 81 (34-104) U/L Albumin 3.5 (3.4-5.0) gm/dl Diagnostic Findings Chest X-Ray 06/08/22 09:40 XR chest 1V portable CLINICAL HISTORY: Chest Pain TECHNIQUE: Single frontal radiograph of the chest was obtained. Comparison: Comparison is made to chest radiograph 02/26/2022 FINDINGS: A port catheter is seen. Cardiomegaly is noted. The lungs are clear. There is a small right pleural effusion. IMPRESSION: Small right pleural effusion. Stable cardiomegaly. No airspace disease. ACT 112: Negative or not required by law. Electronically signed by: Eddie Tinoco M.D. 06/08/2022 9:[address] 06/08/22 09:40 CT SCAN OF THE BRAIN WITHOUT IV CONTRAST CLINICAL HISTORY: Dizziness. COMPARISON STUDY: No priors. TECHNIQUE: Unenhanced axial CT scan of the brain is performed from the vertex to the skull base. A dose lowering technique was utilized adhering to the principles of ALARA. CT DOSE: 537.48 mGy.cm FINDINGS: Brain parenchyma: The brain parenchyma is normal in appearance. There is no hem orrhage, mass effect, or evidence of acute territorial ischemia by CT criteria. Fenton-white matter differentiation is preserved. No extra-axial fluid collection is seen. Ventricles, sulci, cisterns: Normal in configuration. Intracranial vasculature: There is mild atherosclerotic calcification of the cavernous carotid arteries. Calvarium: Unremarkable. Sinuses and mastoids: The visualized paranasal sinuses are clear. The mastoid air cells are well pneumatized. Orbits: The bony orbits are grossly intact. IMPRESSION: No acute intracranial abnormality. ACT 112: Negative or not required by law. Electronically signed by: Daniel Alcantara M.D. 06/08/2022 10:34 AM Code Status & VTE Plan Code Status Full Code in the event of cardiac or respiratory arrest VTE Prophylaxis Plan VTE Prophylaxis will be ordered: Yes Supervising Physician Co-Signing Physician Notes Pt was seen and examined. Agreed with Dayami BLUE exam, assessment and plan.52 year old male with PMH ofLambda light chainMultiple myeloma (2013) s/p autologous stem cell transplantation in 2015, Cardiac AL Amyloidosis,CKDIII, A-fib, DMII (on Ozempic), CAD, HLD, peripheral neuropathy, Chronic Hep B infection was brought in the ER for syncopal episode. Pt had 2 syncopal episodes in the last 2 days.He said both times he woke up and found himself on the floor, he did not remember that he felt. When he got up he was alitte disoriented. He was recently started on Flomax. Denies any chest pain, palpitation, dizziness and sob. CT head on admission showed no acute intracranial abnormality. Creatinine 2.05, troponin 30 and BNP 783 on admission. Syncope possible related to orthostatic hypotension possible due to flomax. Maldonado hold on flomax. Cardiology and nephrology on board, agreed to hold on diuretic for now. Will hold nephrotoxic agents and transplant med. Dr. Amaral is transplant provider notified. Will trend troponin and get a resting echo. PT/OT and fall precaution. Continue monitor closely in tele. MD Jaylyn (1) Amyloidosis Amyloidosis type: unspecified amyloidosis Qualified Code(s): E85.9 - Amyloidosis, unspecified (2) Hypertension Hypertension type: essential hypertension Qualified Code(s): I10 - Essential (primary) hypertension (3) Multiple myeloma Multiple myeloma remission status: not in remission Qualified Code(s): C90.00 - Multiple myeloma not having achieved remission
--- NOTE | 2022-06-08 13:06 | Nephrology Consultation ---
Date of Consultation June 08, 2022 Assessment & Plan (1) Syncope and collapse: suspect this is multifactorial wtih addition of alpha one antagonist in a pt already suffering from orthostatic hypotension; f/u any other pending work up (2) CKD (chronic kidney disease) stage 3, GFR 30-59 ml/min: CKD 3B w/ creatinine 1.7-2.1 for past 9 months; at baseline; chemistries ok; not overtly volume depleted, UA reassuring -strict I/O -daily bmp -ok to hold torsemide for now but give immediatel i f sob develops -nsaid avoidance stressed -agree w/ holding diuretics and melvi max for now -did order prot/creat ratio -continue midodrine if cardiology OKs -will hold K supplements for now >not particularly worried about other OP med changes at ths time but agree w/ evaluating these for pr (3) 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 His baseline creatinine is 1.7-2.0 since late 2020, most recently on 06/04/22 creat of 1.7. Complex PMH includes cardiac AL amyloidosis with restrictive cardiomyopathy, lambda light chain multiple myeloma s/p autologous stem cell transplant in 2014, a fib on coumadin, DM2, CAD, HL, dermatitis herpetiformis, prostatic hypertrophy, orthostatic hypotension. He also had covid during the last week of april but was not hospitalized for this and feels he's made a full recovery. Follows w/ Dr Cook in [facility], Tim Ruiz in cardiology. He apparently fell yesterday and woke on his back on the kitchen floor near the fridge; then this AM was quite dizzy at the top of the stairs and fell backwards, waking on the floor. He endorses frequent orthostatic symptoms and actually takes midodrine as an outpatient. On May 31, his urologist started a trial of tamsulosin. He had his weekly CTX (kyprolis infusion) on 06/04 w/o issues. He takes torsemide 20 mg daily alternating with 40 mg daily. He tells me he'd been noting 2-3 days of pedal edema improved today and figured torsemide would take care of it. He does admit that he took 600 mg of advil yesterday d/t feeling "achy all over." He knows he should avoid nsaids but takes some on average every 2 wks or so since sometimes he can hardly walk d/t pain. Hematology at 06/01 telephonic visit found that his kappa chains were possibly on a downtrend and is strongly considering a PET scan. in addition to edema, he endorses stable chronic loose stools w/ 4 non bloody BM daily. Denies new/worrisome voiding sx. no n/v/abd pain. denies worsening dizziness or weakness; no chest pain or palpitations currently or recently. no fever. has a rash on his anterior chest which he attributes local irritation after shaving so his R port could be accessed. Allergies Allergy/AdvReac Type Severity Reaction Status Date / Time No Known Allergies Allergy Verified 02/26/22 16:13 Home Medications Medication Instructions Recorded Confirmed Type acyclovir 400 mg tablet 400 mg PO BID 05/16/18 06/08/22 History albuterol sulfate 90 mcg/actuation 2 puff inhalation Q4H PRN Cough 05/16/18 06/08/22 History aerosol inhaler (Ventolin HFA) dronedarone 400 mg tablet (Multaq) 400 mg PO BID 05/16/18 06/08/22 History escitalopram oxalate 10 mg tablet 10 mg PO QAM 05/16/18 06/08/22 History (Lexapro) pantoprazole 20 mg tablet,delayed 20 mg PO DAILY 09/02/20 06/08/22 History release potassium chloride 10 mEq 20 meq PO DAILY 09/02/20 06/08/22 History tablet,extended release torsemide 20 mg tablet 40 mg PO BID 09/02/20 06/08/22 History dapsone 25 mg tablet 25 mg PO DAILY 02/26/22 06/08/22 History evolocumab 140 mg/mL subcutaneous 140 mg subcut UD 02/26/22 06/08/22 History pen injector (Sherry Doran) folic acid 400 mcg tablet 400 mcg PO DAILY 02/26/22 06/08/22 History gabapentin 400 mg capsule 800 mg PO BID 02/26/22 06/08/22 History midodrine 5 mg tablet 5 mg PO BID 02/26/22 06/08/22 History semaglutide 0.25 mg or 0.5 mg (2 0.5 mg subcut WK 02/26/22 06/08/22 History mg/1.5 mL) subcutaneous pen injector (Ozempic) tenofovir disoproxil fumarate 300 300 mg PO QAM 02/26/22 06/08/22 History mg tablet warfarin 2.5 mg tablet See Rx Instructions .Route .COMPLEX 02/26/22 06/08/22 History acetaminophen 325 mg tablet 650 mg PO Q6H PRN fever or pain 02/27/22 06/08/22 Rx #30 tabs Ivig 1 dose IV DIRECTED 06/08/22 06/08/22 History carfilzomib 10 mg intravenous 10 mg IV DIRECTED CHEMO 06/08/22 06/08/22 History solution daratumumab 20 mg/mL intravenous 20 mg IV DIRECTED 06/08/22 06/08/22 History solution Patient History Medical History (Updated 06/08/22 @ 19:51 by Ana Reddy MD, PhD) Amyloidosis dx 2017; follows with [facility] Atrial fibrillation Chronic diastolic CHF (congestive heart failure) CKD (chronic kidney disease) stage 3, GFR 30-59 ml/min Diabetes type 2, uncontrolled History of depression Multiple myeloma dx 2013; 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 Mother No problems noted. Social History Smoking Status: Former smoker Second Hand Exposure: No; Do You Dip or Chew Tobacco: Yes; Hx Alcohol Use: No Hx Substance Use: No Preferred Language: Malawian Communication Ability: Effective Design Draftsman Required: No Beliefs That Will Affect Care: None marital status details: twice - 3 children in total between the 2 marriages Current Living Situation: Spouse Current Living Situation Comment: lives in [place] current occupational status: disabled current occupation: previously worked at [email or web address] Other Information That Helps Us Care for You: No Feels Safe at Home: Yes Safety Concerns: Feels Safe At This Time Assistive Devices: None Review of Systems Review of Systems: All systems reviewed & are unremarkable except as noted in HPI & below Physical Exam Constitutional: well developed, well nourished and cooperative; no acute distress Eyes: EOM intact bilaterally ENMT: Ears: no external ear abnormality Nose: no external nose abnormality Mouth: + dry oral mucous membranes Neck: no nuchal rigidity Respiratory: normal respiratory effort Auscultation: lungs clear to auscultation bilaterally and + diminished lung sounds Cardiovascular: Rate/Rhythm: regular rate and regular rhythm Extremities: + edema (2+ pedal and trace pretibial to BL knees; no dependent or sacral edema) Gastrointestinal (Abdomen): Inspection/Auscultation: normal bowel sounds Percussion/Palpation: abdomen soft; abdomen nontender Musculoskeletal: Extremities: strength 5/5 throughout Skin: irritation/ rash ant chest; acne posterior chest Neurologic: inman, fluent speech, no tremor Psychiatric: Orientation: oriented x 3 Insight: good insight Results & Data ([facility]) Vital Signs (Past 12 Hours) Vital Signs Temp Pulse Pulse Resp BP BP Pulse Ox 06/08/22 12:20 65 15 99 06/08/22 12:10 66 22 97 06/08/22 12:00 67 10 L 98 06/08/22 12:00 133/96 06/08/22 11:50 68 12 98 06/08/22 11:40 64 18 06/08/22 11:30 67 11 L 97 06/08/22 11:30 112/76 06/08/22 11:20 68 17 98 06/08/22 11:10 65 18 97 06/08/22 11:00 66 21 98 06/08/22 11:00 119/80 06/08/22 10:50 67 16 98 06/08/22 10:40 71 20 97 06/08/22 10:30 67 20 97 06/08/22 10:30 124/75 06/08/22 10:27 68 10 L 96 06/08/22 10:10 72 28 H 06/08/22 10:00 73 21 06/08/22 09:50 71 22 99 06/08/22 09:40 71 22 99 06/08/22 09:40 124/73 06/08/22 09:35 71 16 06/08/22 10:17 70 16 122/86 97 06/08/22 09:40 74 16 98 06/08/22 09:09 16 98 06/08/22 09:09 98 06/08/22 09:10 36.5 C 77 18 129/83 98 O2 Del Method O2 Flow Rate 06/08/22 12:20 06/08/22 12:10 06/08/22 12:00 06/08/22 12:00 06/08/22 11:50 06/08/22 11:40 06/08/22 11:30 06/08/22 11:30 06/08/22 11:20 06/08/22 11:10 06/08/22 11:00 06/08/22 11:00 06/08/22 10:50 06/08/22 10:40 06/08/22 10:30 06/08/22 10:30 06/08/22 10:27 06/08/22 10:10 06/08/22 10:00 06/08/22 09:50 06/08/22 09:40 06/08/22 09:40 06/08/22 09:35 06/08/22 10:17 Room Air 06/08/22 09:40 Room Air 06/08/22 09:09 Room Air 06/08/22 09:09 Room Air 0 06/08/22 09:10 Room Air Laboratory Results 06/08/22 09:37 06/08/22 09:37 UA reviewed; trace proteinuria on dipstick Diagnostic Findings Head CT no acute i-c process CXR Small right pleural effusion. Stable cardiomegaly. No airspace disease.
--- NOTE | 2022-06-08 14:08 | Cardiology Consultation ---
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 Patient presents with 2 syncopal spells. Past history is notable for significant orthostasis on midodrine supplement. Recent medication changes include addition of tamsulosin due to urinary complaints in the last weeks time. Exam does not suggest congestive heart failure or acute coronary syndrome despite elevated BNP. BNP's and troponin have been chronically elevated on past testing and this represents a relatively low finding for patient supported by decline in renal function. Impression/plan: 1. Syncopal event suspicious for orthostatic but underlying issues need to be excluded. Would maintain telemetry to exclude tacky or bradycardia arrhythmias. Initial findings do not suggest ischemic event. Echocardiogram will be reviewed and compared to prior studies. Given exertional complaints consideration may be made for stress testing We will continue midodrine. Orthostatic blood pressures daily. We will hold tamsulosin for time being. Consider reduction in gabapentin dose 2. 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 Echocardiogram to be reviewed. As above patient with chronically elevated BNP and troponin. We will follow serial troponins and EKG for evolution changes 3. Paroxysmal atrial fibrillation on Multaq. No QT prolongation on EKG. We will maintain telemetry History of Present Illness Reason for Consultation: Syncopal events Requesting Physician: Dr. De La O History of Present Illness Patient is a 52-year-old male with complex underlying history which includes 1. 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 Nonobstructive coronary artery disease by cardiac catheterization on 01/10/2018. 3. Paroxysmal atrial fibrillation, on Multaq 4. Chronic anticoagulation 5. Lambda light chain Multiple myeloma diagnosed in 2013 6. Status post autologous stem cell transplantation in 2014. 7. Chronic kidney disease 8. Obstructive sleep apnea, CPAP supplementation 9. Type II diabetes mellitus 10. Dyslipidemia 11. Chronic orthostatic hypotension on midodrine Patient is referred for evaluation after 2 syncopal events in the last 2 days. He notes walking towards the couch on first event and then finding himself on the floor next to his couch. Notes no recollection of fall. Had not experienced symptoms of chest pains or tachypalpitations. Has been aware of dyspnea. Noted similar event this morning early while walking towards the bed fell and hit nightstand. No noted incurred injuries. Patient without recollection of fall once again. Has been experiencing dizziness and shortness of breath however with exertion. No fevers chills or unexplained infections. Did suffer COVID infection though recovered in mid April. No bleeding difficulties. No acute weight loss or gain though weight has been trending downward since beginning Ozempic. Total loss of 40 pounds or greater but stabilized in the recent months. Taking same medications as well as chemotherapeutic infusions 3 of 4-week Notes no overt fluid retention other than mild pedal edema. No orthopnea Was recently seen by urology and begun on tamsulosin for urinary symptoms approximately 1 week ago Allergies Allergy/AdvReac Type Severity Reaction Status Date / Time No Known Allergies Allergy Verified 02/26/22 16:13 Home Medications Medication Instructions Recorded Confirmed Type acyclovir 400 mg tablet 400 mg PO BID 05/16/18 06/08/22 History albuterol sulfate 90 mcg/actuation 2 puff inhalation Q4H PRN Cough 05/16/18 06/08/22 History aerosol inhaler (Ventolin HFA) dronedarone 400 mg tablet (Multaq) 400 mg PO BID 05/16/18 06/08/22 History escitalopram oxalate 10 mg tablet 10 mg PO QAM 05/16/18 06/08/22 History (Lexapro) pantoprazole 20 mg tablet,delayed 20 mg PO DAILY 09/02/20 06/08/22 History release potassium chloride 10 mEq 20 meq PO DAILY 09/02/20 06/08/22 History tablet,extended release torsemide 20 mg tablet 40 mg PO BID 09/02/20 06/08/22 History dapsone 25 mg tablet 25 mg PO DAILY 02/26/22 06/08/22 History evolocumab 140 mg/mL subcutaneous 140 mg subcut UD 02/26/22 06/08/22 History pen injector (Sherry Doran) folic acid 400 mcg tablet 400 mcg PO DAILY 02/26/22 06/08/22 History gabapentin 400 mg capsule 800 mg PO BID 02/26/22 06/08/22 History midodrine 5 mg tablet 5 mg PO BID 02/26/22 06/08/22 History semaglutide 0.25 mg or 0.5 mg (2 0.5 mg subcut WK 02/26/22 06/08/22 History mg/1.5 mL) subcutaneous pen injector (Ozempic) tenofovir disoproxil fumarate 300 300 mg PO QAM 02/26/22 06/08/22 History mg tablet warfarin 2.5 mg tablet See Rx Instructions .Route .COMPLEX 02/26/22 06/08/22 History acetaminophen 325 mg tablet 650 mg PO Q6H PRN fever or pain 02/27/22 06/08/22 Rx #30 tabs Ivig 1 dose IV DIRECTED 06/08/22 06/08/22 History carfilzomib 10 mg intravenous 10 mg IV DIRECTED CHEMO 06/08/22 06/08/22 History solution daratumumab 20 mg/mL intravenous 20 mg IV DIRECTED 06/08/22 06/08/22 History solution Patient History Medical History Amyloidosis dx 2017; follows with [facility] Atrial fibrillation Chronic diastolic CHF (congestive heart failure) History of depression Multiple myeloma dx 2013; follows with Dr. 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 Mother No problems noted. Social History Smoking Status: Never smoker Second Hand Exposure: No; Hx Alcohol Use: No Hx Substance Use: No Preferred Language: Sami Communication Ability: Effective Health Data Analyst Required: No Beliefs That Will Affect Care: None marital status details: twice - 3 children in total between the 2 marriages Current Living Situation: Spouse Current Living Situation Comment: lives in [place] current occupational status: disabled current occupation: previously worked at [employer] Feels Safe at Home: Yes Assistive Devices: CPAP Review of Systems Review of Systems: All systems reviewed & are unremarkable except as noted in HPI & below Physical Exam Constitutional: well developed and + obese; no acute distress Eyes: PERRL, conjunctivae normal, anicteric sclerae ENMT: external ear and nose normal, oropharynx normal Neck: trachea midline, no thyromegaly Respiratory: normal respiratory effort, lungs clear to auscultation Cardiovascular: Rate/Rhythm: regular rate and regular rhythm Heart Sounds: no murmur Palpation: S3 nonpalpable Vessels: no JVD Extremities: + edema (Trace to 1+ pedal) Chest (Breasts): Chest: normal inspection of chest Gastrointestinal (Abdomen): normal bowel sounds, soft, nontender, no hepatosplenomegaly Musculoskeletal: no cyanosis or clubbing, extremities motor strength 5/5 Neurologic: PERRL, EOMI, accommodation nl, no face palsy, no dysarthria Results & Data ([facility]) Vital Signs (Past 12 Hours) Vital Signs Temp Pulse Pulse Resp BP BP Pulse Ox 06/08/22 12:20 65 15 99 06/08/22 12:10 66 22 97 06/08/22 12:00 67 10 L 98 06/08/22 12:00 133/96 06/08/22 11:50 68 12 98 06/08/22 11:40 64 18 06/08/22 11:30 67 11 L 97 06/08/22 11:30 112/76 06/08/22 11:20 68 17 98 06/08/22 11:10 65 18 97 06/08/22 11:00 66 21 98 06/08/22 11:00 119/80 06/08/22 10:50 67 16 98 06/08/22 10:40 71 20 97 06/08/22 10:30 67 20 97 06/08/22 10:30 124/75 06/08/22 10:27 68 10 L 96 06/08/22 10:10 72 28 H 06/08/22 10:00 73 21 06/08/22 09:50 71 22 99 06/08/22 09:40 71 22 99 06/08/22 09:40 124/73 06/08/22 09:35 71 16 06/08/22 10:17 70 16 122/86 97 06/08/22 09:40 74 16 98 06/08/22 09:09 16 98 06/08/22 09:09 98 06/08/22 09:10 36.5 C 77 18 129/83 98 O2 Del Method O2 Flow Rate 06/08/22 12:20 06/08/22 12:10 06/08/22 12:00 06/08/22 12:00 06/08/22 11:50 06/08/22 11:40 06/08/22 11:30 06/08/22 11:30 06/08/22 11:20 06/08/22 11:10 06/08/22 11:00 06/08/22 11:00 06/08/22 10:50 06/08/22 10:40 06/08/22 10:30 06/08/22 10:30 06/08/22 10:27 06/08/22 10:10 06/08/22 10:00 06/08/22 09:50 06/08/22 09:40 06/08/22 09:40 06/08/22 09:35 06/08/22 10:17 Room Air 06/08/22 09:40 Room Air 06/08/22 09:09 Room Air 06/08/22 09:09 Room Air 0 06/08/22 09:10 Room Air Laboratory Results Laboratory Results - last 24 hr 06/08/22 06/08/22 06/08/22 09:37 09:37 09:37 WBC 9.14 RBC 3.49 L Hgb 11.7 L Hct 34.2 L MCV 98.0 MCH 33.5 MCHC 34.2 RDW Std Deviation 58.4 H RDW Coeff of Tobi 16.8 H Plt Count 156 MPV 11.1 Immature Gran % (Auto) 1.8 Neut % (Auto) 82.1 Lymph % (Auto) 3.1 Osborne % (Auto) 10.4 Eos % (Auto) 2.3 Baso % (Auto) 0.3 Neut # (Auto) 7.51 H Lymph # (Auto) 0.28 L Osborne # (Auto) 0.95 H Eos # (Auto) 0.21 Baso # (Auto) 0.03 Immature Gran # (Auto) 0.16 H Absolute Nucleated RBC 0.30 H Nucleated RBC % (auto) 3.3 Polychromasia 1+ PT 27.8 H INR 2.8 H APTT 38.7 H PTT Ratio 1.4 Sodium 135 L Potassium 3.9 Chloride 102 Carbon Dioxide 25 Anion Gap 8 BUN 41 H Creatinine 2.06 H Est Cr Clr Drug Dosing 46.8 Est GFR ( Amer) 41.7 Est GFR (Non-Af Amer) 36.0 BUN/Creatinine Ratio 19.9 Glucose 217 H Calcium 8.9 Magnesium 2.1 Total Bilirubin 0.7 AST 10 L ALT 14 Alkaline Phosphatase 81 Troponin I High Sens 30.0 H D B-Natriuretic Peptide Total Protein 5.6 L Albumin 3.5 Globulin 2.1 L Albumin/Globulin Ratio 1.7 Lipase 84 H SARS-CoV-2, RNA, NAAT 06/08/22 06/08/22 06/08/22 09:37 09:37 09:57 WBC RBC Hgb Hct MCV MCH MCHC RDW Std Deviation RDW Coeff of Tobi Plt Count MPV Immature Gran % (Auto) Neut % (Auto) Lymph % (Auto) Osborne % (Auto) Eos % (Auto) Baso % (Auto) Neut # (Auto) Lymph # (Auto) Osborne # (Auto) Eos # (Auto) Baso # (Auto) Immature Gran # (Auto) Absolute Nucleated RBC Nucleated RBC % (auto) Polychromasia PT INR APTT PTT Ratio Sodium Potassium Chloride Carbon Dioxide Anion Gap BUN Creatinine Est Cr Clr Drug Dosing Est GFR ( Amer) Est GFR (Non-Af Amer) BUN/Creatinine Ratio Glucose Calcium Magnesium Cancelled Total Bilirubin AST ALT Alkaline Phosphatase Troponin I High Sens B-Natriuretic Peptide 783 H Total Protein Albumin Globulin Albumin/Globulin Ratio Lipase SARS-CoV-2, RNA, NAAT NEGATIVE Diagnostic Findings Echocardiogram 02/25/2022 Normal LV chamber size with severe concentric LVH. Low normal LV systolic function with borderline global hypokinesis, EF 50 to 55%. The right ventricular cavity size is normal (basal dimension < 4.2 cm RV apical 4 chamber view). The right ventricular systolic function is moderately reduced . The right ventricular systolic function is reduced as assessed by tricuspid annular plane systolic excursion (TAPSE< 1.7 cm). Mild mitral regurgitation. Mild tricuspid regurgitation. Severe left atrial enlargement. ECG Rate (beats per minute): Sinus rhythm with poor R wave progression V1 V2
[2022-06-08] MEDS ORDERED: ACETAMINOPHEN 325 MG TAB PO PRN ×2 (14:12)
[2022-06-08] MEDS ORDERED: POLYETHYLENE (MIRALAX) 17 GM PACK PO PRN (14:12)
[2022-06-08] MEDS ORDERED: MAGNESIUM HYDROXIDE SUSP 30 ML UDC PO PRN (14:12)
[2022-06-08] MEDS ORDERED: ONDANSETRON INJ 2 MG/ML 2 ML VIAL IV PRN (14:12)
[2022-06-08] MEDS ORDERED: ALUMINUM/MAGNESIUM SUSP 30 ML UDC PO PRN (14:12)
[2022-06-08] MEDS ORDERED: WARFARIN SOD 1.25 MG TAB PO SCH (16:00)
[2022-06-08] MEDS: MIDODRINE HCL 2.5 MG TAB PO SCH (16:24)
[2022-06-08 16:33] LABS: Appearance Urine Clear (Clear); Bacteria Urine Automated Negative (Negative); Bilirubin Urine Negative (Negative); Blood Urine Negative (Negative); Cast Urine Automated 0 /lpf (0-5); Color Urine Yellow; Epithelial Cell Urine Auto 0-5 /lpf (0-5); Glucose Urine UA Negative (Negative); Ketones Urine Negative (Negative); Leukocyte Esterase Urine Negative (Negative); Nitrite Urine Negative (Negative); Protein Urine Trace (Negative); RBC Urine Automated 0-4 /hpf (0-4); Specific Gravity Urine 1.007 (1.000-1.030); Urobilinogen Urine Negative (Negative); WBC Urine Automated 0 /hpf (0-5); pH Urine 5.5 (4.5-7.5)
[2022-06-08] MEDS: INSULIN ASPART PER UNIT SC SCH ×2 (18:52→22:41)
[2022-06-08] MEDS: DRONEDARONE HCL 400 MG TAB PO SCH (20:04)
[2022-06-08] MEDS ORDERED: GABAPENTIN 400 MG CAP PO ONE (20:43)
[2022-06-08] MEDS ORDERED: GABAPENTIN 400 MG CAP PO SCH (21:00)
[2022-06-08] MEDS ORDERED: GABAPENTIN 400 MG CAP PO STA (21:49)
--- NOTE | 2022-06-08 23:16 | Electrocardiogram Report ---
Test Reason : Blood Pressure : / mmHG Vent. Rate : 071 BPM Atrial Rate : 071 BPM P-R Int : 184 ms QRS Dur : 086 ms QT Int : 406 ms P-R-T Axes : 018 092 239 degrees QTc Int : 441 ms Normal sinus rhythm Possible Left atrial enlargement Rightward axis Nonspecific T wave abnormality Septal infarct , age undetermined Abnormal ECG When compared with ECG of 27-FEB-2022 05:56, Septal infarct is now Present T wave inversion less evident in Inferolateral leads Confirmed by Perico Little ([id number]) on 06/08/2022 11:16:12 PM Referred By: REFERRED SELF Confirmed By:Perico Little
[2022-06-09 02:52] LABS: Hematocrit (blood only) 32.8 % (40.1-51.0); Hemoglobin 11.4 g/dl (14.0-18.0); Mean Corpuscular Hemoglobin 33.9 pg (25.0-34.0); Mean Corpuscular Hgb Conc 34.8 g/dL (32.0-36.0); Mean Corpuscular Volume 97.6 fL (80.0-100.0); Nucleated RBC # (auto) 0.25 K/uL (0-0); Nucleated RBC % (auto) 2.3 %; Platelet Count 146 K/uL (130-400); RDW Coefficient of Variation 16.7 % (11.5-14.5); RDW Standard Deviation 57.6 fL (36.4-46.3); Red Blood Count 3.36 M/uL (4.63-6.08); White Blood Count 10.68 K/ul (4.8-10.8)
[2022-06-09 03:03] LABS: INR 2.4 (0.9-1.1); Prothrombin Time 24.7 Seconds (9.0-12.0)
[2022-06-09 03:16] LABS: Anion Gap 4 (3-11); BUN Creatinine Ratio 19.3 (10-20); Blood Urea Nitrogen 34 mg/dl (6-23); C Reactive Protein 1.29 mg/dl (0-0.5); Calcium 8.9 mg/dl (8.5-10.1); Carbon Dioxide 29 mmol/L (21-32); Chloride 103 mmol/L (98-107); Cholesterol 79 mg/dl (0-200); Creatinine Clr Calc Pharmacy 54.8 ml/min; Est GFR (African American) 50.4 ml/min; Est GFR (Non-African American) 43.5 ml/min; Glucose 163 mg/dl (70-99(Fasting)); HDL Cholesterol 28 mg/dl; Magnesium 2.2 mg/dl (1.7-2.4); Potassium 4.2 mmol/L (3.5-5.1); Sodium 136 mmol/L (136-145); Triglycerides 376 mg/dl (0-150)
[2022-06-09 03:55] LABS: Chol HDL Ratio 2.8 (0-5); VLDL Cholesterol 75 mg/dl (0-30)
[2022-06-09 04:41] LABS: LDL Cholesterol Direct 19 mg/dl
[2022-06-09 07:40] LABS: Estimated Average Glucose 126 mg/dl
[2022-06-09] MEDS: INSULIN ASPART PER UNIT SC SCH ×3 (08:07→17:37)
[2022-06-09] MEDS: DRONEDARONE HCL 400 MG TAB PO SCH (08:08)
[2022-06-09] MEDS: MIDODRINE HCL 2.5 MG TAB PO SCH ×2 (08:08→17:37)
[2022-06-09] MEDS ORDERED: ESCITALOPRAM OXALATE 10 MG TAB PO SCH (09:00)
[2022-06-09] MEDS ORDERED: PANTOprazole 40 MG TAB PO SCH (09:00)
[2022-06-09] MEDS ORDERED: TENOFOVIR DISOPROXIL FUMARATE 300 MG PO SCH (09:00)
[2022-06-09] MEDS ORDERED: POTASSIUM CHLORIDE CRTAB 20 MEQ TABCR PO SCH (09:00)
[2022-06-09] MEDS ORDERED: FOLIC ACID 400 MCG TAB PO SCH (09:00)
--- NOTE | 2022-06-09 11:14 | Cardiology Progress Note ---
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 Patient presents with 2 syncopal spells. Past history is notable for si gnificant orthostasis on midodrine supplement. Recent medication changes include addition of tamsulosin due to urinary complaints in the last weeks time. Exam does not suggest congestive heart failure or acute coronary syndrome despite elevated BNP. BNP's and troponin have been chronically elevated on past testing and this represents a relatively low finding for patient supported by decline in renal function. Impression/plan: 1. Syncopal event suspicious for orthostatic but underlying issues need to be excluded. Would maintain telemetry to exclude tacky or bradycardia arrhythmias. Initial findings do not suggest ischemic event. Echocardiogram will be reviewed and compared to prior studies. Given exertional complaints consideration may be made for stress testing We will continue midodrine. Orthostatic blood pressures daily. We will hold tamsulosin for time being. Consider reduction in gabapentin dose 2. 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 Echocardiogram to be reviewed. As above patient with chronically elevated BNP and troponin. We will follow serial troponins and EKG for evolution changes 3. Paroxysmal atrial fibrillation on Multaq. No QT prolongation on EKG. We will maintain telemetry 06/09/2022: No further symptoms or complaints no arrhythmias on telemetry. Episode suspicious for orthostatic induced hypotension secondary to recent add ition of medical therapy with tamsulosin. No signs of congestive heart failure or acute coronary syndrome. Echocardiogram revealed as prior LV systolic function low normal with thickened heart and diastolic dysfunction. Right ventricle was also thickened and less contractile secondary to infiltrative disease placing patient at high risk for orthostatic complaints. Recommendations: Discontinue tamsulosin Would recommend reducing gabapentin dose being used for neuropathy and likely contributing to mild pedal edema. Compression stockings as long-term management Patient aware of prior orthostatic concerns and remains on midodrine. Patient cognizant of the methods to avoid and treat hypertension Patient ambulatory in hallway stable for discharge today Keep upcoming appointments with PCP and cardiology. Admission and Anticipated Discharge Date Admission Date: June 08, 2022 Subjective Patient was seen and examined, chart, medications, telemetry reviewed. No complaints this morning no further dizziness or lightheadedness. No arrhythmias on telemetry. No chest pain or shortness of breath. Review of Systems Review of Systems: All systems reviewed & are unremarkable except as noted in Subjective Physical Exam Constitutional: well developed and + obese; no acute distress Eyes: PERRL, conjunctivae normal, anicteric sclerae ENMT: external ear and nose normal, oropharynx normal Neck: trachea midline, no thyromegaly Respiratory: normal respiratory effort, lungs clear to auscultation Cardiovascular: Rate/Rhythm: regular rate and regular rhythm Heart Sounds: no murmur Palpation: S3 nonpalpable Vessels: no JVD Extremities: + edema (Trace to 1+ pedal) Chest (Breasts): Chest: normal inspection of chest Gastrointestinal (Abdomen): normal bowel sounds, soft, nontender, no hepatosplenomegaly Musculoskeletal: no cyanosis or clubbing, extremities motor strength 5/5 Neurologic: PERRL, EOMI, accommodation nl, no face palsy, no dysarthria Results & Data ([facility]) Vital Signs (Past 12 Hours) Vital Signs Temp Pulse Resp BP Pulse Ox O2 Del Method 06/09/22 11:02 36.9 C 64 20 133/81 99 Room Air 06/09/22 07:10 36.9 C 17 06/09/22 03:55 37.3 C 68 18 100/62 97 Room Air 06/09/22 00:08 36.8 C 20 98 Room Air Laboratory Results Laboratory Results - last 24 hr 06/08/22 06/08/22 06/08/22 16:19 18:47 20:46 WBC RBC Hgb Hct MCV MCH MCHC RDW Std Deviation RDW Coeff of Tobi Plt Count MPV Absolute Nucleated RBC Nucleated RBC % (auto) ESR PT INR Sodium Potassium Chloride Carbon Dioxide Anion Gap BUN Creatinine Est Cr Clr Drug Dosing Est GFR ( Amer) Est GFR (Non-Af Amer) BUN/Creatinine Ratio Glucose POC Glucose 245 H Estimat Average Glucose Hemoglobin A1c Calcium Magnesium Troponin I High Sens 30.9 H C-Reactive Protein Triglycerides Cholesterol LDL Cholesterol Direct LDL Cholesterol, Calc VLDL Cholesterol, Calc HDL Cholesterol Cholesterol/HDL Ratio Urine Color Yellow Urine Appearance Clear Urine pH 5.5 Ur Specific Tiff 1.007 Urine Protein Trace H Urine Glucose (UA) Negative Urine Ketones Negative Urine Blood Negative Urine Nitrite Negative Urine Bilirubin Negative Urine Urobilinogen Negative Ur Leukocyte Esterase Negative Urine WBC (Auto) 0 Urine RBC (Auto) 0-4 U Hyaline Cast (Auto) 0 U Epithel Cells (Auto) 0-5 Urine Bacteria (Auto) Negative 06/08/22 06/09/22 06/09/22 22:30 02:31 02:31 WBC 10.68 RBC 3.36 L Hgb 11.4 L Hct 32.8 L MCV 97.6 MCH 33.9 MCHC 34.8 RDW Std Deviation 57.6 H RDW Coeff of Tobi 16.7 H Plt Count 146 MPV 11.0 Absolute Nucleated RBC 0.25 H Nucleated RBC % (auto) 2.3 ESR < 1 PT INR Sodium Potassium Chloride Carbon Dioxide Anion Gap BUN Creatinine Est Cr Clr Drug Dosing Est GFR ( Amer) Est GFR (Non-Af Amer) BUN/Creatinine Ratio Glucose POC Glucose 125 H Estimat Average Glucose Hemoglobin A1c Calcium Magnesium Troponin I High Sens C-Reactive Protein Triglycerides Cholesterol LDL Cholesterol Direct LDL Cholesterol, Calc VLDL Cholesterol, Calc HDL Cholesterol Cholesterol/HDL Ratio Urine Color Urine Appearance Urine pH Ur Specific Tiff Urine Protein Urine Glucose (UA) Urine Ketones Urine Blood Urine Nitrite Urine Bilirubin Urine Urobilinogen Ur Leukocyte Esterase Urine WBC (Auto) Urine RBC (Auto) U Hyaline Cast (Auto) U Epithel Cells (Auto) Urine Bacteria (Auto) 06/09/22 06/09/22 06/09/22 02:31 02:31 02:31 WBC RBC Hgb Hct MCV MCH MCHC RDW Std Deviation RDW Coeff of Tobi Plt Count MPV Absolute Nucleated RBC Nucleated RBC % (auto) ESR PT 24.7 H INR 2.4 H Sodium 136 Potassium 4.2 Chloride 103 Carbon Dioxide 29 Anion Gap 4 BUN 34 H Creatinine 1.76 H D Est Cr Clr Drug Dosing 54.8 Est GFR ( Amer) 50.4 Est GFR (Non-Af Amer) 43.5 BUN/Creatinine Ratio 19.3 Glucose 163 H POC Glucose Estimat Average Glucose Hemoglobin A1c Calcium 8.9 Magnesium 2.2 Troponin I High Sens 30.0 H Cancelled C-Reactive Protein 1.29 H Triglycerides 376 H Cholesterol 79 LDL Cholesterol Direct 19 LDL Cholesterol, Calc TNP VLDL Cholesterol, Calc 75 H HDL Cholesterol 28 Cholesterol/HDL Ratio 2.8 Urine Color Urine Appearance Urine pH Ur Specific Tiff Urine Protein Urine Glucose (UA) Urine Ketones Urine Blood Urine Nitrite Urine Bilirubin Urine Urobilinogen Ur Leukocyte Esterase Urine WBC (Auto) Urine RBC (Auto) U Hyaline Cast (Auto) U Epithel Cells (Auto) Urine Bacteria (Auto) 06/09/22 06/09/22 06/09/22 02:31 07:43 08:38 WBC RBC Hgb Hct MCV MCH MCHC RDW Std Deviation RDW Coeff of Tobi Plt Count MPV Absolute Nucleated RBC Nucleated RBC % (auto) ESR PT INR Sodium Potassium Chloride Carbon Dioxide Anion Gap BUN Creatinine Est Cr Clr Drug Dosing Est GFR ( Amer) Est GFR (Non-Af Amer) BUN/Creatinine Ratio Glucose POC Glucose 153 H Estimat Average Glucose 126 Hemoglobin A1c 6.0 H Calcium Magnesium Troponin I High Sens 29.9 H C-Reactive Protein Triglycerides Cholesterol LDL Cholesterol Direct LDL Cholesterol, Calc VLDL Cholesterol, Calc HDL Cholesterol Cholesterol/HDL Ratio Urine Color Urine Appearance Urine pH Ur Specific Tiff Urine Protein Urine Glucose (UA) Urine Ketones Urine Blood Urine Nitrite Urine Bilirubin Urine Urobilinogen Ur Leukocyte Esterase Urine WBC (Auto) Urine RBC (Auto) U Hyaline Cast (Auto) U Epithel Cells (Auto) Urine Bacteria (Auto)
--- NOTE | 2022-06-09 13:02 | Nephrology Progress Note ---
Date of Service June 09, 2022 Assessment & Plan (1) Syncope and collapse: Plan: suspect this is multifactorial wtih addition of alpha one antagonist in a pt already suffering from orthostatic hypotension; f/u any other pending work up; no worrisome / acute cardiology concerns at this time including no new rhythm concerns (2) CKD (chronic kidney disease) stage 3, GFR 30-59 ml/min: Plan: CKD 3B w/ creatinine 1.7-2.1 for past 9 months; at baseline; chemistries ok; not overtly volume depleted, UA reassuring NEPHRO D/C recs: -stop tamsulosin -resume torsemide and potassium supplements per OP routine -resume midodrine -agree w/ recs for compression stockings and lower ame dose per cardiology -can check prot/creat ratio as OP; dipstick misleading w/ his myeloma hx -needs HOSPITAL DISCHARGE f/u appt with Dr CASTILLO 2-4 wks after d/c -check bmp, prot/creat ratio urine before that appt > to be ordered by neph [employer] salesperson and Anticipated Discharge Date Admission Date: June 08, 2022 Subjective no interval clinical events. no new/worrisome orthostatic sx. no sob; ongoing pedal /ankle edema Review of Systems Review of Systems: All systems reviewed & are unremarkable except as noted in Subjective Physical Exam Constitutional: well developed, well nourished and cooperative; no acute distress ambulatory w/o asst Eyes: EOM intact bilaterally ENMT: Ears: no external ear abnormality Nose: no external nose abnormality Mouth: + dry oral mucous membranes Neck: no nuchal rigidity Respiratory: normal respiratory effort Auscultation: lungs clear to auscultation bilaterally and + diminished lung sounds Cardiovascular: Rate/Rhythm: regular rate and regular rhythm Extremities: + edema (2+ pedal and trace pretibial to BL knees; no dependent or sacral edema) Gastrointestinal (Abdomen): Inspection/Auscultation: normal bowel sounds Percussion/Palpation: abdomen soft; abdomen nontender Musculoskeletal: Extremities: strength 5/5 throughout Psychiatric: Orientation: oriented x 3 Insight: good insight Results & Data ([facility]) Vital Signs (Past 12 Hours) Vital Signs Temp Pulse Resp BP Pulse Ox O2 Del Method 06/09/22 11:02 36.9 C 64 20 133/81 99 Room Air 06/09/22 07:10 36.9 C 17 06/09/22 03:55 37.3 C 68 18 100/62 97 Room Air Laboratory Results 06/09/22 02:31 06/09/22 02:31
[2022-06-09] MEDS ORDERED: WARFARIN SOD 2.5 MG TAB PO SCH ×2 (16:00)
--- NOTE | 2022-06-09 16:44 | Hospitalist Progress Note ---
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 ECHO done, Cards and Nephro on board. Nephrotoxic meds held; getting in touch with heme/onc team in [place] for further direction on holding certain chemo regimen agents. Syncope and Collapse: Chronic Diastolic CHF: Hypotension: -two syncopal episodes in last 48 hours; no trauma -Head CT negative -Echo results show reduced EF from last ECHO reviewed; EF now 45-50%, moderate RV hypertrophy, trace mitral regurgitation. -Field Spec Dr. Stout consulted Syncope likely secondary to tamsulosin, recommend discontinuation, follow-up with urologist Continue usual diuretics Amyloidosis: Acute renal failure superimposed on CKD3 -Baseline Creatinine 1.7--> now 2.06 Improved to 1.7 after IV hydration Neurologist Dr. Lopez consulted No further intervention at this point, continue usual medications Multiple Myeloma: Peripheral Neuropathy: -Diagnosed in 2013. Was following with Dr. Rodriges; now follows Dr. Amaral in [facility]/[place] Q 3 months via telemed Continue usual regimen Follow-up with specialist as scheduled pAF: retirement use of anticoagulants: -Currently NSR -On Chronic Coumadin. -INR 2.4 -Takes Multaq (dronedarone) DM2: -Diet control and also takes Ozempic Continue usual regimen H/O Hepatitis B: -Stable; Takes Tenofovir HLD: -On Repatha SQ biweekly. Urinary retention Tamsulosin discontinued secondary to syncope Follow-up with urologist Depression: -stable; takes Lexapro; continue GERD: -Continue Pantoprazole Disposition: Discharge home today Follow-up with PCP tomorrow as scheduled Follow-up with cardiology and other specialist as scheduled Admission and Anticipated Discharge Date Admission Date: June 08, 2022 Subjective Follow-up for syncope, etc. Seen sitting up in bed, comfortable, not in distress In good spirits States he feels fine overall Fractures and denies dizziness, headache, chest pain, shortness of breath, palpitations Ambulating in the room with no problems Also no problems with urination No other symptoms Review of Systems Review of Systems: all noted and negative except for above Physical Exam Physical Exam: General- oriented x 3, not in distress, speaks in sentences with no effort or accessory muscle use Eyes- anicteric Neck- no JVD Lungs- clear BS bilaterally, no rales/wheezes Heart- normal rate, regular rhythm; no murmurs Abdomen- normal bowel sounds, nondistended, soft, nontender Extremities- no pretibial edema, no calf tenderness Neuro- alert, oriented x 3; no gross focal neurologic deficits Skin- warm & dry Results & Data Results & Data ([facility]) Vital Signs (Past 12 Hours) Vital Signs Temp Pulse Resp BP BP Pulse Ox O2 Del Method 06/09/22 15:34 36.8 C 71 18 122/80 110/66 97 06/09/22 15:17 36.8 C 71 18 110/66 97 Room Air 06/09/22 11:02 36.9 C 64 20 133/81 99 Room Air 06/09/22 07:10 36.9 C 17 all noted and reviewed including below (1) Amyloidosis Amyloidosis type: unspecified amyloidosis Qualified Code(s): E85.9 - Amyloidosis, unspecified (2) Multiple myeloma Multiple myeloma remission status: not in remission Qualified Code(s): C90.00 - Multiple myeloma not having achieved remission (3) Hypertension Hypertension type: essential hypertension Qualified Code(s): I10 - Essential (primary) hypertension
--- NOTE | 2022-06-09 16:44 | Discharge Summary ---
Discharge Summary Date of Service June 09, 2022 Admission HPI Per Admitting Provider Mr. 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 Nam at [facility], now with Tim Ruiz PA-C ),CKDIII, A-fib( On Coumadin), DMII (on Ozempic), CAD, HLD, peripheral neuropathy, Chronic Hep B infectionwas evaluated in the ED for two syncopal episodes that he experienced over the past 2 days. Both times he does not remember falling either time and woke up on the floor in his bedroom. His RANDALL was there but it was not witnessed. He does not think he was on the floor more than a few minutes. When his consciousness returned he didn't know where he was. He looked around and then realized that he had fallen. He denies hitting his head, rather only hit his back on the nightstand. He denies any alcohol, or recreational drug use. He reports using chewing tobacco. Patient denies HILL, dizziness, blurry vision, CP, palpitations, N/V/D, skin changes, other falls. He does report feeling nauseated yesterday. He had a heart catheterization in 2018 where LV pressures were elevated. his last ECHO was 2017 and EF 65%. Patient goes to [facility] for his chemo and his last infusion was on TuesdayJune 04. He sees Dr. Amaral ([facility] in [place]) Q3 months via telemed. Patient will be admitted under Hospitalist service for further evaluation and management. Please see A/p for further details. 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 ECHO done, Cards and Nephro on board. Nephrotoxic meds held; getting in touch with heme/onc team in [place] for further direction on holding certain chemo regimen agents. Syncope and Collapse: Chronic Diastolic CHF: Hypotension: -two syncopal episodes in last 48 hours; no trauma -Head CT negative -Echo results show reduced EF from last ECHO reviewed; EF now 45-50%, moderate RV hypertrophy, trace mitral regurgitation. -Manager Of Quality Dr. Stout consulted Syncope likely secondary to tamsulosin, recommend discontinuation, follow-up with urologist Continue usual diuretics Amyloidosis: Acute renal failure superimposed on CKD3 -Baseline Creatinine 1.7--> now 2.06 Improved to 1.7 after IV hydration Neurologist Dr. Lopez consulted No further intervention at this point, continue usual medications Multiple Myeloma: Peripheral Neuropathy: -Diagnosed in 2013. Was following with Dr. Rodriges; now follows Dr. 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 -INR 2.4 -Takes Multaq (dronedarone) DM2: -Diet control and also takes Ozempic Continue usual regimen H/O Hepatitis B: -Stable; Takes Tenofovir HLD: -On Repatha SQ biweekly. Urinary retention Tamsulosin discontinued secondary to syncope Follow-up with urologist Depression: -stable; takes Lexapro; continue GERD: -Continue Pantoprazole Disposition: Discharge home today Follow-up with PCP tomorrow as scheduled Follow-up with cardiology and other specialist as scheduled Updated Medication List Medication Instructions Recorded Confirmed Type acyclovir 400 mg tablet 400 mg PO BID 05/16/18 06/08/22 History albuterol sulfate 90 mcg/actuation 2 puff inhalation Q4H PRN Cough 05/16/18 06/08/22 History aerosol inhaler (Ventolin HFA) dronedarone 400 mg tablet (Multaq) 400 mg PO BID 05/16/18 06/08/22 History escitalopram oxalate 10 mg tablet 10 mg PO QAM 05/16/18 06/08/22 History (Lexapro) pantoprazole 20 mg tablet,delayed 20 mg PO DAILY 09/02/20 06/08/22 History release potassium chloride 10 mEq 20 meq PO DAILY 09/02/20 06/08/22 History tablet,extended release torsemide 20 mg tablet 40 mg PO BID 09/02/20 06/08/22 History dapsone 25 mg tablet 25 mg PO DAILY 02/26/22 06/08/22 History evolocumab 140 mg/mL subcutaneous 140 mg subcut UD 02/26/22 06/08/22 History pen injector (Sherry Doran) folic acid 400 mcg tablet 400 mcg PO DAILY 02/26/22 06/08/22 History gabapentin 400 mg capsule 800 mg PO BID 02/26/22 06/08/22 History midodrine 5 mg tablet 5 mg PO BID 02/26/22 06/08/22 History semaglutide 0.25 mg or 0.5 mg (2 0.5 mg subcut WK 02/26/22 06/08/22 History mg/1.5 mL) subcutaneous pen injector (Ozempic) tenofovir disoproxil fumarate 300 300 mg PO QAM 02/26/22 06/08/22 History mg tablet warfarin 2.5 mg tablet See Rx Instructions .Route .COMPLEX 02/26/22 06/08/22 History acetaminophen 325 mg tablet 650 mg PO Q6H PRN fever or pain 02/27/22 06/08/22 Rx #30 tabs Ivig 1 dose IV DIRECTED 06/08/22 06/08/22 History carfilzomib 10 mg intravenous 10 mg IV DIRECTED CHEMO 06/08/22 06/08/22 History solution daratumumab 20 mg/mL intravenous 20 mg IV DIRECTED 06/08/22 06/08/22 History solution Hospital Stay Data Consultations 06/08/22 10:57 ED Decision to Admit Stat 06/08/22 12:05 Consult Nephrology Routine 06/08/22 12:16 Consult Cardiology Routine Diagnostic Imagining Performed 06/08/22 09:40 CT head/brain wo con Stat Pending Results Patient Have Any Pending Studies at Discharge: No Discharge Instructions Given to Patient (Per Discharging Provider) Please discontinue tamsulosin. Resume your other usual medications. PLEASE CALL YOUR PRIMARY CARE PHYSICIAN OR RETURN TO THE ER IF WITH WORSENING OF SYMPTOMS, INCLUDING Dizziness, weakness, shortness of breath, chest pain, leg swelling. FOLLOW UP WITH PRIMARY CARE PHYSICIAN as scheduled. Follow-up with your music librarian as scheduled.
--- NOTE | 2022-06-09 22:56 | Electrocardiogram Report ---
Test Reason : Blood Pressure : / mmHG Vent. Rate : 067 BPM Atrial Rate : 067 BPM P-R Int : 188 ms QRS Dur : 090 ms QT Int : 444 ms P-R-T Axes : 028 099 -71 degrees QTc Int : 469 ms Normal sinus rhythm Rightward axis Low voltage QRS Septal infarct (cited on or before 08-JUN-2022) T wave abnormality, consider inferolateral ischemia Abnormal ECG When compared with ECG of 08-JUN-2022 09:26, No significant change was found Confirmed by Perico Little ([id number]) on 06/09/2022 10:55:36 PM Referred By: REFERRED SELF Confirmed By:Perico Little
== END 2022-06-09 17:38 | disposition home or self-care (01) | DRG 312 ==
LOC: ED 09:08 → 4W 11:50 → SUATTDRO 11:50 → 4W 13:59

== ENCOUNTER 2022-07-23 22:23 | Inpatient (IN) ==
[2022-07-24] MEDS: NOREPINEPHRINE/D5W 4 MG/250 ML PLCT IV SCH (05:30)
[2022-07-24] MEDS: LACTATED RINGER'S 1,000 ML IV SCH ×2 (05:30→14:29)
[2022-07-24] MEDS ORDERED: ICU Protocol for HYPERglycemia PRN (05:36)
[2022-07-24] MEDS ORDERED: SODIUM CHLORIDE 0.9% 1000ML 1,000 ML IV SCH (05:36)
[2022-07-24] MEDS ORDERED: STAT IV Infusion **Titration per Protocol STA (05:36)
--- NOTE | 2022-07-24 05:42 | Critical Care Progress Note ---
Date of Service July 24, 2022 Assessment & Plan Admission and Anticipated Discharge Date Admission Date: July 24, 2022 Coding
[2022-07-24] MEDS ORDERED: Patient's HEIGHT &/or WEIGHT Needed SCH (06:00)
[2022-07-24] MEDS ORDERED: PIPERACILLIN/TAZOBACTAM 3.375 GM in DEXTROSE 5% 100 ML IV ONE (06:00)
--- NOTE | 2022-07-24 06:18 | Consultation ---
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 Evaluated at OSH where noted to be hypotensive and following 2.75 ML of Crystalloid resuscitation required Levophed infusion and transferred to [facility]. He is followed by [facility] Oncology/Cardiology/Nephrology. Admitted by [facility]. Patient will be evaluated for infective process/sepsis, will wean down vasopressors as able, start/continue broad spectrum abx. Neuro - No acute needs CAM ICU: Negative Appropriate with no focal deficits Cardiac -SEPSIS, AFIB, HTN, Orthostasis. Restrictive Cardiomyopathy, Amyloidosis, Elevated Troponin I - Arrived on Levophed for hypotension- MAPS 93, he is afebrile, no leukocytosis- rule out sepsis vs. chemo/checkpoint inhibitor induced illness vs. viral/bacterial infection vs. adrenal insufficiency - On arrival SIRS- 1, qSOFA 0 - Continue supportive care- bedside POCUS is consistent with adequate volume resuscitation, no pericardial effusion- lactate cleared - Chronically elevated HScTNI- likely related to underlying cardiac disease and CKD- type II demand - For his Afib- continue Multaq and Warfarin - For his Orthostasis- continue Midodrine and wean off Levophed- have room to adjust dose - Hold Amiloride until vasopressors off Respiratory - Pleural effusions (chronic), Pneumonia - Bilateral lower lobe consolidation on CT scan with noted pleural effusions RT > LT - Contiue with Zosyn and Azithromycin- received Vancomycin at OSH- Discontinue if MRSA nares is negative - Legioneall antigen pending - Doubt fungal at this time as symptoms short lived- consider if clinical course changes GI - GERD - Continue PPI - Clears advance as tolerated if vasopressors weaned off RENAL/LYTES - CKD. ARSENIO II - Avoid further nephrotoxic mediations as able- if needed minimize exposure time - Avoid NSAIDS - Avoid Alpha blockers for LUTS secondary to orthostasis - No acute needs - as above ENDO - DMII - previously on oral agents- discontinued with weight loss - BG q6 hours while NPO - ICU hyperglycemia protocol goal < 180mg/DL HEME - Multiple Myeloma, Amyloid, - no acute needs at this time - previously received IVIG- if clinical course changes can check IgM/IgG levels and dose; ID - Sepsis, Pneumonia - Empiric therapy for his pulmonary infiltrates - PNA vs. Atelectasis vs. chemo/checkpoint inhibitor induced illness/pneumonitis vs. bacterial/bacterial infection - Leukocytosis noted in the setting of steroids yesterday, with bilateral lower lobe infitrate, oxygen requirement - COVID/Respiratory biofire panel sent - Legionella antigen - Blood cultures x2 with one site from his port - Zosyn and Azithromycin - MRSA nares- if negative continue to hold Vancomycin LINES/IV ACCESS - Port accessed Continue use of these lines DVT PROPHYLAXIS - Warfarin, SCD, Ambulation DISPO: ICU while vasopressors on I have personally spent 45 minutes of critical care time in the direct management of this patient. This is a life/limb threatening event. This includes time spent evaluating patient, direct bedside care, chart review, placing orders, interpretation of diagnostic studies, discussion with consultants, patient, and family members, as well as other required patient management activities. This time is exclusive of all separately billable procedures, and teaching time and separate from and in addition to any other critical care service time. Thank you for allowing us to participate in the care of this patient. Please refer to my attending physician's documentation for any further recommendations. History of Present Illness Requesting Physician: Adrien Tavares MD Reason for Consultation: Immunocompromised requiring vasopressors for hypotension at OSH Attending Physician: Nivia Pierce MD History of Present Illness 52 YOM who was originally evaluated at [facility] on the evening of 07/23/22 for complaints of fever and lethargy at home. Patient states he was feeling normal self until following chemotherapy on 05/23/22- he is unsure of his agents that he is receiving for his lambda light chain multiple myeloma- he does have refractory diseases and is followed by [facility] as well as [facility]. His therapy is currently Daratumumab and Carfilzomib and is on prophylactic Acyclovir and Dapsone. Patient reports that he does get Decadron with his infusions and his Decadron was recently decreased for the first time yesterday secondary to leg swelling he was getting with previous dosing. He reports that he got home from chemotherapy, got the chills and became fatigued, he checked his temperature at home and was 100.6. He then endorses that he doesn't remember much of the rest but his said that he was "just out of it". He fells that he developed a cough yesterday with some mucous production and sore throat. He had a Negative COVID and FLU reported from [place]. Lacate was 2.2 there as well. During his evaluation there he was felt to have possible pulmonary infective process was started on abx, he reportedly became hypotensive and remained hypotensive following 2.5 L of crystalloid infusion. For this reason he was initiated on Levophed, which he responded well to. He was transferred to [facility] for continued care. Patient arrived at 0500 on 0.07mcg/kg/min of Levophed with MAPS in the 90s, HR 60s, Afebrile. His imaging disk will be uploaded for evaluation, will repeat COVID, and respiratory biofire panel, blood cultures, PCT, and Legionella and MRSA. Will place on Zosyn and Azithromycin for presumed pulmonary process at this time in immunocompromised patient, MRSA swab- if negative discontinue Vancomycin. Patient has medical history of Myeloma (stem cell transplant in 2013), Amyloid (confirmed with cardiac fat pad biopsy), Afib (on Multaq/Warfarin), DMII (no medication since weight loss, Restrictive Cardiomyopathy (recent ECHO 06/03- EF 45-50% with global hypokinesis, GERD, CKD, Orthostasis (on Midodrin 5mg BID). Allergies Allergy/AdvReac Type Severity Reaction Status Date / Time No Known Allergies Allergy Verified 02/26/22 16:13 Home Medications Medication Instructions Recorded Confirmed Type acyclovir 400 mg tablet 400 mg PO BID 05/16/18 06/08/22 History albuterol sulfate 90 mcg/actuation 2 puff inhalation Q4H PRN Cough 05/16/18 06/08/22 History aerosol inhaler (Ventolin HFA) dronedarone 400 mg tablet (Multaq) 400 mg PO BID 05/16/18 06/08/22 History escitalopram oxalate 10 mg tablet 10 mg PO QAM 05/16/18 06/08/22 History (Lexapro) pantoprazole 20 mg tablet,delayed 20 mg PO DAILY 09/02/20 06/08/22 History release potassium chloride 10 mEq 10 meq PO Q OTHER DAY 09/02/20 06/08/22 History tablet,extended release torsemide 20 mg tablet 40 mg PO DAILY 09/02/20 06/08/22 History dapsone 25 mg tablet 25 mg PO DAILY 02/26/22 06/08/22 History evolocumab 140 mg/mL subcutaneous 140 mg subcut UD 02/26/22 06/08/22 History pen injector (Sherry Doran) folic acid 400 mcg tablet 400 mcg PO DAILY 02/26/22 06/08/22 History gabapentin 400 mg capsule 800 mg PO BID 02/26/22 06/08/22 History midodrine 5 mg tablet 5 mg PO BID 02/26/22 06/08/22 History semaglutide 0.25 mg or 0.5 mg (2 0.5 mg subcut WK 02/26/22 06/08/22 History mg/1.5 mL) subcutaneous pen injector (Ozempic) tenofovir disoproxil fumarate 300 300 mg PO QAM 02/26/22 06/08/22 History mg tablet warfarin 2.5 mg tablet See Rx Instructions .Route .COMPLEX 02/26/22 06/08/22 History acetaminophen 325 mg tablet 650 mg PO Q6H PRN fever or pain 02/27/22 06/08/22 Rx #30 tabs Ivig 1 dose IV DIRECTED 06/08/22 06/08/22 History carfilzomib 10 mg intravenous 10 mg IV DIRECTED CHEMO 06/08/22 06/08/22 History solution daratumumab 20 mg/mL intravenous 20 mg IV DIRECTED 06/08/22 06/08/22 History solution finasteride 5 mg tablet 5 mg PO DAILY 07/24/22 07/24/22 History oxycodone 5 mg tablet 5 mg PO Q6H PRN Pain 07/24/22 07/24/22 History trazodone 50 mg tablet 50 mg PO HS PRN Insomnia 07/24/22 07/24/22 History Patient History Medical History (Updated 07/24/22 @ 13:50 by Nivia Pierce MD) Amyloidosis dx 2018; follows with [facility] Atrial fibrillation Chronic diastolic CHF (congestive heart failure) CKD (chronic kidney disease) stage 3, GFR 30-59 ml/min Diabetes type 2, uncontrolled History of depression Multiple myeloma dx 2013; follows with Dr. 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 Mother No problems noted. Social History Smoking Status: Current every day smoker Second Hand Exposure: No; Hx Alcohol Use: Yes Hx Substance Use: No Preferred Language: Mosotho Communication Ability: Effective Survey Research Teacher Required: No Beliefs That Will Affect Care: None marital status: marital status details: twice - 3 children in total between the 2 marriages Current Living Situation: Spouse and Family Current Living Situation Comment: lives in [place] current occupational status: disabled current occupation: previously worked at [employer] Feels Safe at Home: Yes Assistive Devices: CPAP and Oxygen - at Night Review of Systems Review of Systems: REVIEW OF SYSTEMS: Constitutional:(+) fever, sweats or chills Eyes: No diplopia, no worsening or blurred vision ENT: (+) sore throat, normal hearing, no trouble swallowing Respiratory: (+) cough, clear sputum, No dyspnea at rest or on exertion Cardiovascular: No chest pain, tightness or palpitations Abdomen: No pain, nausea, vomiting, diarrhea or constipation Musculoskeletal: No joint pain, calf pain, swelling Neurologic: No weakness, numbness/tingling, or balance problems Psychiatric: No anxiety or depression Skin: No rash or itch Physical Exam Physical Exam: PHYSICAL EXAM: General: awake, alert, no apparent distress Head: Normocephalic, atraumatic ENT: PERRL, EOMI, no pharyngeal exudate, mucous membranes dry Neuro: AAO x 3, speech clear and appropriate, strength intact bilaterally 5/5, sensation intact and equal all extremities and dermatomes, no pronator drift Chest: equal rise and fall of the chest, no accessory muscle use, no heaves or thrills, decreased in bases with fine crackles, on 2LNC Cardiac: regular rate and rhythm, telemetry reviewed- NSR no ectopy, skin warm dry, cap refill <3 seconds, peripheral pulses +2 no JVD, grade I systolic murmur best heard LSB, no edema GI: NABS x 4 quadrants, soft, nontender to palpation, no rebound, guarding or tenderness, last BM on presentation to ICU- normal : Spontaneously voiding, no pain, no CVA tenderness, Extremities: Normal inspection, no peripheral edema or erythema, calfs nontender to palpation Psych: Normal mood and affect Skin: some scratches to upper extremity and previous IV/blood draw sticks, Results & Data ([facility]) Vital Signs (Past 12 Hours) Vital Signs Temp Pulse Resp BP Pulse Ox O2 Del Method O2 Flow Rate 37.4 C 70 22 125/85 97 2 07/24/22 05:00 07/24/22 05:00 07/24/22 05:00 07/24/22 05:00 07/24/22 05:00 07/24/22 05:00 07/24/22 05:00 Laboratory Results Abnormal lab results 07/24/22 07/24/22 Range/Units 05:54 06:34 WBC 16.32 H (4.8-10.8) K/ul RBC 4.07 L (4.63-6.08) M/uL Hgb 13.4 L (14.0-18.0) g/dl MCV 100.5 H (80.0-100.0) fL RDW Std Deviation 52.0 H (36.4-46.3) fL POC Glucose 134 H (70-99) mg/dl Medications Administered Home Medications acyclovir 400 mg tablet 400 mg PO BID 05/16/18 [History Confirmed 06/08/22] albuterol sulfate 90 mcg/actuation aerosol inhaler (Ventolin HFA) 2 puff inhalation Q4H PRN Cough 05/16/18 [History Confirmed 06/08/22] dronedarone 400 mg tablet (Multaq) 400 mg PO BID 05/16/18 [History Confirmed 06/08/22] escitalopram oxalate 10 mg tablet (Lexapro) 10 mg PO QAM 05/16/18 [History Confirmed 06/08/22] pantoprazole 20 mg tablet,delayed release 20 mg PO DAILY 09/02/20 [History Confirmed 06/08/22] potassium chloride 10 mEq tablet,extended release 20 meq PO DAILY 09/02/20 [History Confirmed 06/08/22] torsemide 20 mg tablet 40 mg PO BID 09/02/20 [History Confirmed 06/08/22] dapsone 25 mg tablet 25 mg PO DAILY 02/26/22 [History Confirmed 06/08/22] evolocumab 140 mg/mL subcutaneous pen injector (Sherry Doran) 140 mg subcut UD 02/26/22 [History Confirmed 06/08/22] folic acid 400 mcg tablet 400 mcg PO DAILY 02/26/22 [History Confirmed 06/08/22] gabapentin 400 mg capsule 800 mg PO BID 02/26/22 [History Confirmed 06/08/22] midodrine 5 mg tablet 5 mg PO BID 02/26/22 [History Confirmed 06/08/22] semaglutide 0.25 mg or 0.5 mg (2 mg/1.5 mL) subcutaneous pen injector (Ozempic) 0.5 mg subcut WK 02/26/22 [History Confirmed 06/08/22] tenofovir disoproxil fumarate 300 mg tablet 300 mg PO QAM 02/26/22 [History Confirmed 06/08/22] warfarin 2.5 mg tablet See Rx Instructions .Route .COMPLEX 02/26/22 [History Confirmed 06/08/22] acetaminophen 325 mg tablet 650 mg PO Q6H PRN fever or pain #30 tabs 02/27/22 [Rx Confirmed 06/08/22] Ivig 1 dose IV DIRECTED 06/08/22 [History Confirmed 06/08/22] carfilzomib 10 mg intravenous solution 10 mg IV DIRECTED CHEMO 06/08/22 [History Confirmed 06/08/22] daratumumab 20 mg/mL intravenous solution 20 mg IV DIRECTED 06/08/22 [History Confirmed 06/08/22] finasteride 5 mg tablet 5 mg PO DAILY 07/24/22 [History Confirmed 07/24/22] oxycodone 5 mg tablet 5 mg PO Q6H PRN Pain 07/24/22 [History Confirmed 07/24/22] trazodone 50 mg tablet 50 mg PO HS PRN Insomnia 07/24/22 [History Confirmed 07/24/22] Active Medications Acyclovir (Acyclovir 400 Mg Tab) 400 mg PO BID JOSE Stop: 08/23/22 08:59 Albuterol (Albuterol Hfa 8 Gm Inhaler) 2 puffs INH Q4H PRN PRN Reason: Cough Stop: 08/23/22 06:38 Dextrose (Dextrose 50% 50 Ml Syringe) 25 - 50 ml IV UD PRN; Protocol PRN Reason: Hypoglycemia Protocol Stop: 08/23/22 06:29 Dronedarone (Dronedarone Hcl 400 Mg Tab) 400 mg PO BID JOSE Stop: 08/23/22 08:59 Escitalopram Oxalate (Escitalopram Oxalate 10 Mg Tab) 10 mg PO QAM JOSE Stop: 08/23/22 08:59 Finasteride (Finasteride 5 Mg Tab) 5 mg PO DAILY JOSE Stop: 08/23/22 08:59 Folic Acid (Folic Acid 400 Mcg Tab) 400 mcg PO DAILY JOSE Stop: 08/23/22 08:59 Gabapentin (Gabapentin 400 Mg Cap) 800 mg PO BID JOSE Stop: 08/23/22 08:59 Glucagon (Glucagon For Inj 1 Mg Vial) 1 mg IM UD PRN; Protocol PRN Reason: Hypoglycemia Protocol Stop: 08/23/22 06:29 Glucose (Glucose 40% Gel 15 Gm Tube) 15 - 30 gm PO UD PRN; Protocol PRN Reason: Hypoglycemia Protocol Stop: 08/23/22 06:29 Glucose (Glucose 10 Tab/Tube) 4 - 8 tab PO UD PRN; Protocol PRN Reason: Hypoglycemia Protocol Stop: 08/23/22 06:29 Piperacillin Sod/Tazobactam (Sod 3.375 gm/ Dextrose) 115 mls @ 28.75 mls/hr IV Q8H JOSE; Protocol Stop: 07/31/22 05:35 Azithromycin 500 mg/ Dextrose 255 mls @ 127.5 mls/hr IV Q24H JOSE Stop: 07/31/22 05:59 Last Admin: 07/24/22 06:24 Dose: 127.5 mls/hr Norepinephrine Bitartrate (Levophed/D5w) 4 mg in 250 mls @ 17.269 mls/hr IV .[id number] [facility]; Protocol Stop: 08/23/22 05:35 Last Titration: 07/24/22 06:00 Dose: 0.03 mcg/kg/min, 10.4 mls/hr Lactated Ringer's (Lr) 1,000 mls @ 110 mls/hr IV .Q9H6M JOSE Stop: 08/23/22 05:44 Last Admin: 07/24/22 05:30 Dose: 110 mls/hr Insulin Aspart (Insulin Aspart Per Unit) 0 units SC ACHS JOSE Stop: 08/23/22 07:29 Midodrine (Midodrine Hcl 2.5 Mg Tab) 5 mg PO BID JOSE Stop: 08/23/22 08:59 Miscellaneous (Icu Protocol For Hyperglycemia) 1 each N/A PRN PRN; Protocol PRN Reason: Hyperglycemia Protocol Stop: 07/26/22 05:35 Miscellaneous (Carbohydrates For Hypoglycemia ) 15 - 30 gm PO UD PRN PRN Reason: Hypoglycemia Treatment Stop: 08/23/22 06:29 Non-Formulary Medication (Dapsone) 25 mg PO DAILY JOSE Stop: 08/23/22 08:59 Non-Formulary Medication (Tenofovir Disoproxil Fumarate) 300 mg PO QAM [facility] Stop: 08/23/22 08:59 Oxycodone HCl (Oxycodone Hcl Ir 5 Mg Tab (Immediate Release)) 5 mg PO Q6H PRN PRN Reason: Pain Stop: 08/07/22 06:38 Pantoprazole Sodium (Pantoprazole 40 Mg Tab) 20 mg PO DAILY JOSE Stop: 08/23/22 08:59 Trazodone HCl (Trazodone Hcl 50 Mg Tab) 50 mg PO HS PRN PRN Reason: Insomnia Stop: 08/23/22 06:38 Warfarin Sodium (Warfarin Sod 2.5 Mg Tab) 0 mg PO .COMPLEX [facility] Stop: 08/23/22 06:44 ECG Additional Comments: Normal sinus rhythm Possible Left atrial enlargement Rightward axis Low voltage QRS Septal infarct (cited on or before 08-JUN-2022) Prolonged QT Abnormal ECG When compared with ECG of 09-JUN-2022 04:54, No significant change was found PG Care Time/CCT Total # of Minutes Spent Total Time Spent with Patient: Total time spent is greater than 50% in coordination of care (as documented) at patient's floor/unit and/or counseling patient: 45 minutes critical care time Coding Level of Care Code None Diagnoses Fever R50.9 Amyloidosis E85.9 Amyloidosis type: unspecified amyloidosis 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 E85.4; I43 Current use of mcfp anticoagulation Z79.01 Diabetes type 2, uncontrolled CKD (chronic kidney disease) stage 3, GFR 30-59 ml/min N18.30 Multiple myeloma C90.00 Multiple myeloma remission status: not in remission Elevated troponin R77.8 GERD (gastroesophageal reflux disease) K21.9 Hypertension I10 Hypertension type: essential hypertension Comment Critical Care time 45 minutes- AMY Opener (1) Amyloidosis Amyloidosis type: unspecified amyloidosis Qualified Code(s): E85.9 - Amyloidosis, unspecified (2) Hypertension Hypertension type: essential hypertension Qualified Code(s): I10 - Essential (primary) hypertension (3) Multiple myeloma Multiple myeloma remission status: not in remission Qualified Code(s): C90.00 - Multiple myeloma not having achieved remission
[2022-07-24] MEDS: AZITHROMYCIN 500 MG in DEXTROSE 5% 250 ML IV SCH (06:24)
[2022-07-24] MEDS ORDERED: GLUCOSE 40% GEL 15 GM TUBE PO PRN (06:30)
[2022-07-24] MEDS ORDERED: CARBOHYDRATES FOR HYPOGLYCEMIA PO PRN (06:30)
[2022-07-24] MEDS ORDERED: DEXTROSE 50% 50 ML SYRINGE IV PRN (06:30)
[2022-07-24] MEDS ORDERED: GLUCOSE 10 TAB/TUBE PO PRN (06:30)
[2022-07-24] MEDS ORDERED: GLUCAGON FOR INJ 1 MG VIAL IM PRN (06:30)
[2022-07-24 06:38] LABS: Hematocrit (blood only) 40.9 % (40.1-51.0); Hemoglobin 13.4 g/dl (14.0-18.0); Mean Corpuscular Hemoglobin 32.9 pg (25.0-34.0); Mean Corpuscular Hgb Conc 32.8 g/dL (32.0-36.0); Mean Corpuscular Volume 100.5 fL (80.0-100.0); Mean Platelet Volume 10.1 fL (9.4-12.4); Platelet Count 182 K/uL (130-400); RDW Coefficient of Variation 14.1 % (11.5-14.5); Red Blood Count 4.07 M/uL (4.63-6.08); White Blood Count 16.32 K/ul (4.8-10.8)
[2022-07-24] MEDS ORDERED: ALBUTEROL HFA 8 GM INHALER INH PRN (06:39)
[2022-07-24] MEDS ORDERED: traZODone HCL 50 MG TAB PO PRN (06:39)
[2022-07-24] MEDS ORDERED: oxyCODONE HCL IR 5 MG TAB (IMMEDIATE RELEASE) PO PRN (06:39)
[2022-07-24 07:00] LABS: Albumin Globulin Ratio 1.3 (0.9-2); Albumin Level 3.1 gm/dl (3.4-5.0); BUN Creatinine Ratio 12.7 (10-20); Bilirubin,Total 0.8 mg/dl (0.2-1.0); Calcium 7.9 mg/dl (8.5-10.1); Est GFR (African American) 38.5 ml/min; Est GFR (Non-African American) 33.2 ml/min; Globulin 2.4 gm/dl (2.5-4.0); Magnesium 1.9 mg/dl (1.7-2.4); Potassium 4.4 mmol/L (3.5-5.1); Total Protein 5.5 gm/dl (6.0-8.3)
[2022-07-24 07:02] LABS: Troponin I High Sensitivity 56.7 pg/ml (0-20)
[2022-07-24 07:15] LABS: Basophils # (auto) 0.05 K/uL (0-0.2); Basophils % (auto) 0.3 %; Eosinophils # (auto) 0.05 K/uL (0-0.50); Eosinophils % (auto) 0.3 %; Immature Granulocytes # (auto) 0.11 K/uL (0.00-0.02); Immature Granulocytes % (auto) 0.7 %; Lymphocytes # (auto) 0.16 K/uL (1.2-3.4); Monocytes # (auto) 0.82 K/uL (0.24-0.82); Neutrophils # (auto) 15.13 K/uL (1.4-6.5); Neutrophils % (auto) 92.7 %
[2022-07-24 07:23] LABS: INR 1.8 (0.9-1.1); Partial Thromboplastin Ratio 1.6; Partial Thromboplastin Time 44.2 Seconds (21.0-31.0); Prothrombin Time 18.6 Seconds (9.0-12.0)
[2022-07-24 07:43] LABS: Adenovirus PCR Not Detected (NotDetected); Bordetella parapertussis PCR Not Detected (NotDetected); Bordetella pertussis PCR Not Detected (NotDetected); Chlamydia pneumoniae PCR Not Detected (NotDetected); Coronavirus 229E PCR Not Detected (NotDetected); Coronavirus CoV-2 (COVID19)PCR Not Detected (NotDetected); Coronavirus HKU1 PCR Not Detected (NotDetected); Coronavirus NL63 PCR Not Detected (NotDetected); Coronavirus OC43PCR Not Detected (NotDetected); Human Metapneumovirus PCR Not Detected (NotDetected); Influenza A PCR Not Detected (NotDetected); Influenza B PCR Not Detected (NotDetected); Mycoplasma pneumoniae PCR Not Detected (NotDetected); Parainfluenza Virus 2 PCR Not Detected (NotDetected); Parainfluenza Virus 3 PCR Not Detected (NotDetected); Parainfluenza Virus 4 PCR Not Detected (NotDetected); Respiratory Syncytial VirusPCR Not Detected (NotDetected); Rhinovirus/Enterovirus PCR Not Detected (NotDetected)
[2022-07-24 07:47] LABS: Parainfluenza Virus 1 PCR DETECTED (NotDetected)
--- NOTE | 2022-07-24 07:56 | Electrocardiogram Report ---
Test Reason : Blood Pressure : / mmHG Vent. Rate : 071 BPM Atrial Rate : 071 BPM P-R Int : 176 ms QRS Dur : 082 ms QT Int : 472 ms P-R-T Axes : 027 092 -82 degrees QTc Int : 512 ms Normal sinus rhythm Left atrial enlargement Rightward axis Low voltage QRS Old Septal infarct (cited on or before 08-JUN-2022) Prolonged QT Diffuse Nonspecific T wave abnormality Abnormal ECG When compared with ECG of 09-JUN-2022 04:54, No significant change was found Confirmed by Antonio Baer ([id number]) on 07/24/2022 7:56:11 AM Referred By: Adrien Tavares Confirmed By:Antonio Baer
[2022-07-24] MEDS: INSULIN ASPART PER UNIT SC SCH ×4 (08:01→22:00)
[2022-07-24] MEDS ORDERED: ALBUMIN 5% 250 ML IV ONE ×2 (08:04→08:05)
--- NOTE | 2022-07-24 08:25 | CT Scan Report ---
CT chest diagnostic wo con CT DOSE: 539.17 mGy.cm HISTORY: Shortness of breath. pneumonia, pleural effusions TECHNIQUE: Multiaxial CT images of the chest were performed without contrast. A dose lowering techni que was utilized adhering to the principles of ALARA. COMPARISON: Chest CT 07/06/2018. FINDINGS: Redemonstration of the multiple scattered lytic lesions seen throughout the visualized osse ous structures. This is consistent with multiple myeloma/metastatic disease. This is similar to the p rior study. Old, healed left-sided rib fractures are noted. No acute fractures identified within the chest. Trace perihepatic ascites is noted. Otherwise, the visualized liver and spleen are unremarkabl e. There is mild periportal edema noted. Normal esophagus. No mediastinal or hilar lymphadenopathy. T he heart is enlarged. Moderate coronary artery calcifications are noted. No significant pericardial e ffusion. Mild body wall edema. A right jugular Port-A-Cath terminates at the SVC. Moderate right and small left pleural effusions have slightly increased in size. No pneumothorax. The central airways ar e patent. Diffuse interlobular septal thickening consistent with mild interstitial pulmonary edema. P atchy airspace opacities within the bilateral lower lobes posteriorly are nonspecific but favor compr essive atelectasis from the pleural effusions. A pneumonia could also have a similar appearance in th e appropriate clinical setting. IMPRESSION: 1. Interval progression of the mild interstitial pulmonary edema and bilateral pleural effusions. 2. Patchy airspace opacities within the bilateral lower lobes posteriorly are nonspecific but favor c ompressive atelectasis from the pleural effusions. A pneumonia could also have a similar appearance i n the appropriate clinical setting. 3. Multiple scattered lytic lesions again seen throughout the visualized osseous structures consisten t with multiple myeloma/metastatic disease. This is similar to the prior study. ACT 112: Negative or not required by law. Electronically signed by: Aron Talavera M.D. 07/24/2022 8:22 AM
[2022-07-24] MEDS: ACETAMINOPHEN 325 MG TAB PO PRN ×2 (08:42→18:03)
[2022-07-24] MEDS: ESCITALOPRAM OXALATE 10 MG TAB PO SCH (08:43)
[2022-07-24] MEDS: GABAPENTIN 800 MG TAB PO SCH ×2 (08:43→21:01)
[2022-07-24] MEDS: FOLIC ACID 400 MCG TAB PO SCH (08:43)
[2022-07-24] MEDS: MIDODRINE HCL 2.5 MG TAB PO SCH ×2 (08:43→14:29)
[2022-07-24] MEDS: DAPSONE 25 MG TAB PO SCH (08:43)
[2022-07-24] MEDS ORDERED: ICU Protocol for HYPERglycemia SCH (09:00)
[2022-07-24] MEDS: ACYCLOVIR 400 MG TAB PO SCH ×2 (09:07→21:01)
[2022-07-24] MEDS: FINASTERIDE 5 MG TAB PO SCH (09:07)
[2022-07-24] MEDS: DRONEDARONE HCL 400 MG TAB PO SCH ×2 (09:07→21:02)
[2022-07-24] MEDS: PANTOprazole 40 MG TAB PO SCH (09:07)
--- NOTE | 2022-07-24 09:21 | History and Physical Report ---
DATE OF ADMISSION: 07/24/2022. CHIEF COMPLAINT: Severe sepsis. HISTORY OF PRESENT ILLNESS: This is a 52-year-old male with past medical history significant for type 2 diabetes, chronic kidney disease stage III, history of hyperlipidemia, obstructive sleep apnea, paroxysmal atrial fibrillation, cardiac amyloidosis, chronic diastolic CHF, chronic systolic CHF, restrictive cardiomyopathy,nonocclusive coronary artery disease, congenital solitary right kidney, BPH, lumbosacral disk degeneration, peripheral neuropathic pain, history of multiple myeloma, lambda light chain myeloma, amyloidosis, immunosuppressive status, anxiety, statin intolerance, who was transferred from [facility] for severe sepsis. The patient is getting chemo every week for 3 weeks and 1 week off. Yesterday, he had chemo in [facility]. After going home, he was feeling chills, shaky, not feeling well and has had a temperature spike, seemed confused and had nausea and vomiting.. He went to [facility] He was given antibiotics, for pneumonia and found to have pleural effusions. When asked for admission, patient wanted to come to [facility] because of his doctors here.Then later patient became hypotensive even after giving sepsis protocol fluids, blood pressure was still low, so he was started on Levophed and patient's blood pressure is stable on Levophed and was transferred here. Currently, the patient is alert and oriented. Denies any headache or dizziness. No blurred visions, no cough, no sore throat. Denies any chest pain. He says he cannot take deep breaths for last 2 days. No abdominal pain. No blood in stools or black stools. Normal micturition. He is using finasteride for his BPH, some times have difficult micturition. Denies any blood in the urine. He has some swelling in the legs, but he said it is much better. He is taking torsemide 20 mg 1 day and 40 mg the other day, but last week he took an extra dose to bring the swelling down, and he also said because of leg swellings his dexamethasone during the chemo was reduced from 20 mg to 8 mg yesterday. ALLERGIES: ATORVASTATIN AND ZETIA. PAST MEDICAL HISTORY: As mentioned above. PAST SURGICAL HISTORY: Central line placement, colonoscopy, EGDs, tunneled catheter with A port, cataracts, vasectomy. MEDICATIONS: As per [facility], the patient is on finasteride 5 mg p.o. daily, midodrine 5 mg b.i.d., oxycodone 5 mg p.o. q. 6 hours p.r.n., furosemide 20 mg, currently taking 40 mg every day, folic acid 400 mcg p.o. daily, trazodone 50 mg p.o. at bedtime, dexamethasone taking during chemo, Multaq 400 mg p.o. b.i.d., tenofovir 1 tablet in the morning, dapsone 25 mg p.o. daily, potassium chloride 10 mEq p.o. every other day, gabapentin 800 mg p.o. b.i.d., Coumadin 1.5 mg on Tuesdays and Saturdays and 2.5 mg all other days, Lexapro 10 mg p.o. daily, acyclovir 400 mg p.o. daily, Protonix 20 mg daily, Repatha 140 mg subcutaneous every 14 days, albuterol 2 puffs inhalation q. 6 hours p.r.n., Flonase 2 sprays intranasally daily, oxygen at bedtime, CPAP at bedtime. FAMILY HISTORY: No family history on file. SOCIAL HISTORY: , chews tobacco. No alcohol use. No drug use. REVIEW OF SYSTEMS: As per HPI. Rest of the review of systems is negative. PHYSICAL EXAMINATION: GENERAL: The patient is of moderate built, not in acute distress. VITAL SIGNS: As per outside hospital T-max was 38.8, heart rate 88, respiratory rate 22, blood pressure 125/72, oxygen 93%. HEENT: Pupils equal, round and reactive to light. Oral mucosa moist. NECK: No JVD. No neck masses. CARDIOVASCULAR: S1 and S2 heard. Regular rate and rhythm. No murmur, no gallop. RESPIRATORY SYSTEM: Normal AP diameter. No accessory muscle use. No wheezing, no crackles. ABDOMEN: Soft, bowel sounds present, nontender, no distention. CENTRAL NERVOUS SYSTEM: Alert and oriented. No facial droop. Speech is clear. Insight is okay. Obeys simple commands. Moves extremities. EXTREMITIES: Mild pedal edema present, no erythema seen. LABORATORY DATA: From the outside hospital: Chest x-ray showing development of mild cardiomegaly and small pleural effusions, patchy area of consolidation in lower lobes bilaterally consistent with atelectasis or pneumonia. From [facility]: EKG: Sinus rhythm at a rate of 86, no acute ST changes seen, QTc of 452. Hemoglobin is 13.9, hematocrit 43. Albumin level 3, alkaline phosphatase 124, ALT 29, AST 17, total bilirubin 0.7, , calcium 8.5, chloride 106, CO2 of 30, creatinine of 1.7. SARS-CoV-2 rapid test negative. RSV not detected. Influenza A and B not detected. ASSESSMENT AND PLAN: This is a 52-year-old male who has lambda chain multiple myeloma, status post autologous stem cell transplant in 2014, [facility]. Seems to be getting chemo daratumumab and carfilzomib weekly for 3 weeks in 4 weeks, was his chemo yesterday, after chemo going home, felt sick, having fever or chills, nausea, vomiting, went to [facility] found to have possible pneumonia and blood pressure was hypotensive, not improved with fluids. Initial lactic acid was 2.2. He was placed on Levophed and transferred here. 1. Severe sepsis, septic shock, possibly from pneumonia, could be drug reaction. Empirically received antibiotics, Zosyn and vancomycin at [place]. Starting Zosyn, azithromycin here. Follow the cultures. Follow the response. Continue with fluids, normal saline 125 mL per hour. Closely monitor in the ICU. Follow the cortisol level, lactic acid level, repeat labs, procalcitonin and blood cultures and biofire respiratory panel.Will follow ct chest.Chronic diastolic congestive heart failure, h chronic systolic congestive heart failure, EF of 45-50%, from the echo done in 05/2022. History of restrictive cardiomyopathy secondary to amyloidosis. He is on torsemide at home, which we will hold. Getting fluids. Monitor closely for any volume overload. 4. Paroxysmal atrial fibrillation, on Coumadin. Follow PT/INR. Takes Multaq. 5. Diabetes, diet controlled on Ozempic? Follow HbA1c. Follow the blood sugars.ISS 6. History of hepatitis B. Takes tenofovir. 7. History of hyperlipidemia, on Repatha subcutaneous biweekly. 8. History of urinary retention. At last admission Flomax was stopped because of syncope. Currently on Proscar.Will Monitor 9. Depression, takes Lexapro. 10. Gastroesophageal reflux disease. Continue PPI. 11. Amyloidosis and chronic kidney disease stage III. Baseline creatinine 1.7, CR was 1.7. from labs in [place]. Follow the repeat labs. 12.Multiple myeloma: Followup with heme/onco. Had pet scan on 07/15/2022 showing b/l pleural effusion, moderate on right side. will follow ct chest. 12. Deep venous thrombosis prophylaxis. On Coumadin. Follow PT/INR. DISPOSITION: Closely monitor in the ICU for now. Level 1 full code as per my discussion with the patient. Job ID: [id number] [facility]
[2022-07-24] MEDS: PIPERACILLIN/TAZOBACTAM 3.375 GM in DEXTROSE 5% 100 ML IV SCH ×2 (12:34→19:47)
--- NOTE | 2022-07-24 14:03 | Hospitalist Progress Note ---
Date of Service July 24, 2022 Assessment & Plan (1) Severe sepsis: Plan: With septic shock History of lambda chain multiple myeloma with autologous stem cell transplant in 2015 and ongoing chemotherapy He has had chemo day before yesterday morning with daratumumab and carfilzomib After going home following chemo he felt sick with fever and chills, nausea vomiting and went to [facility] and found to have very low blood pressure and required Levophed administration Bibasilar pneumonia is a possibility and parainfluenza infection or even chemotherapy side effects Blood cultures have been taken and urine was negative for any infection Bio fire did show parainfluenza, patient does not have any symptoms Has been on intravenous Zosyn and azithromycin. 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 He is off the pressors since this morning and the blood pressure is holding up on the lower side at systolic 90s Will be transferred to medical telemetry unit for continuation of care Possible bibasilar pneumonia Parainfluenza virus infection Procalcitonin is elevated Lactic acid has been normal We will continue with current antibiotic and await blood culture report (2) Multiple myeloma: Plan: Has been getting chemotherapy every 3 to 4 weeks (3) 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: Plan: History of chronic systolic heart failure secondary to restrictive cardiomyopathy due to amyloidosis Has chronic pleural effusion likely secondary to CHF Minimal leg swelling Holding any diuretics for hypotension (4) CKD (chronic kidney disease) stage 3, GFR 30-59 ml/min: Plan: Acute on chronic kidney disease Creatinine was noted to be elevated at 2.20 Will monitor BMP (5) Diabetes type 2, uncontrolled: Plan: Has been on sliding scale insulin coverage (6) Chronic diastolic CHF (congestive heart failure): Plan: Received cautious amount of intravenous fluid to correct hypotension and ARSENIO Has bilateral pleural effusion with edema IV fluid has been stopped (7) Paroxysmal atrial fibrillation: Plan: Rate is controlled Mild elevation of troponin Doubt any ACS Plan DVT prophylaxis On Eliquis CODE STATUS Full Discussed with the Admission and Anticipated Discharge Date Admission Date: July 24, 2022 Subjective 07/24/2022 The patient was seen and examined in ICU He has been feeling much better but remains extremely weak and has been complaining of diarrhea without any abdominal pain, nausea and or vomiting Did not have any fever, cough or shortness of breath prior to chemotherapy yesterday morning Symptoms started in the evening with fever and weakness and was brought in to the hospital Review of Systems Review of Systems: All systems reviewed and are unremarkable except as noted below Physical Exam Physical Exam: Lying in bed comfortably but looks very lethargic Constitutional: well developed, well nourished, + ill appearing and + obese Eyes: PERRL, conjunctivae normal, anicteric sclerae ENMT: external ear and nose normal, oropharynx normal Neck: trachea midline, no thyromegaly Respiratory: + respiratory distress (Minimal distress at rest); no labored breathing Auscultation: + diminished lung sounds (At the bases) and + crackles (Minimal crackles) Cardiovascular: Rate/Rhythm: regular rate and regular rhythm; not tachycardic Heart Sounds: normal S1, normal S2 and + murmur Extremities: + edema (1+ edema bilaterally more on the left than the right) Gastrointestinal (Abdomen): Inspection/Auscultation: + abdomen distended and normal bowel sounds Percussion/Palpation: abdomen soft; abdomen nontender Musculoskeletal: No acute arthritis in any joint Neurologic: Alert, awake and oriented x3. He generally very weak and lethargic. Moving all the limbs equally Lymphatic: no cervical or axillary lymphadenopathy Results & Data Results & Data ([facility]) Vital Signs (Past 12 Hours) Vital Signs Temp Pulse Pulse Resp BP BP Pulse Ox 07/24/22 12:40 93/60 L 07/24/22 12:40 78 22 96 07/24/22 12:07 80 13 99 07/24/22 11:45 78 21 96 07/24/22 11:30 78 17 92 07/24/22 11:15 73 25 H 91 07/24/22 11:02 85 27 H 07/24/22 11:02 106/60 07/24/22 10:15 76 19 95 07/24/22 10:00 79 32 H 92 07/24/22 10:00 93/67 L 07/24/22 09:45 79 26 H 94 07/24/22 08:00 07/24/22 09:30 82 30 H 88 L 07/24/22 09:15 81 38 H 95 07/24/22 09:00 81 28 H 92 07/24/22 09:00 92/61 L 07/24/22 08:45 84 31 H 91 07/24/22 08:45 102/66 07/24/22 08:30 81 28 H 07/24/22 08:30 108/69 07/24/22 08:28 101/67 07/24/22 08:28 82 25 H 07/24/22 08:00 84 29 H 97 07/24/22 08:00 95/65 L 07/24/22 09:00 07/24/22 08:00 37.1 C 07/24/22 08:00 07/24/22 07:45 84 20 96 07/24/22 07:45 97/60 L 07/24/22 07:38 98/67 L 07/24/22 07:38 79 19 99 07/24/22 07:30 77 17 91 07/24/22 07:15 80 19 97 07/24/22 07:01 81 20 94 07/24/22 07:01 127/84 07/24/22 07:00 83 21 92 07/24/22 06:35 71 16 98 07/24/22 07:50 83 07/24/22 06:48 07/24/22 05:00 37.4 C 70 22 125/85 97 07/24/22 06:00 73 20 127/83 95 07/24/22 05:10 37.4 C 68 24 125/85 94 07/24/22 05:36 Pulse Ox O2 Del Method O2 Del Method O2 Flow Rate O2 Flow Rate 07/24/22 12:40 07/24/22 12:40 07/24/22 12:07 07/24/22 11:45 07/24/22 11:30 07/24/22 11:15 07/24/22 11:02 07/24/22 11:02 07/24/22 10:15 07/24/22 10:00 07/24/22 10:00 07/24/22 09:45 07/24/22 08:00 Room Air 07/24/22 09:30 07/24/22 09:15 07/24/22 09:00 07/24/22 09:00 07/24/22 08:45 07/24/22 08:45 07/24/22 08:30 07/24/22 08:30 07/24/22 08:28 07/24/22 08:28 07/24/22 08:00 07/24/22 08:00 07/24/22 09:00 93 Room Air 07/24/22 08:00 07/24/22 08:00 Room Air 07/24/22 07:45 07/24/22 07:45 07/24/22 07:38 07/24/22 07:38 07/24/22 07:30 07/24/22 07:15 07/24/22 07:01 07/24/22 07:01 07/24/22 07:00 07/24/22 06:35 07/24/22 07:50 07/24/22 06:48 Nasal Cannula 2 07/24/22 05:00 Nasal Cannula 2 07/24/22 06:00 Nasal Cannula 2 07/24/22 05:10 Nasal Cannula 2 07/24/22 05:36 94 Nasal Cannula 2 Laboratory Results Short CBC 07/24/22 Range/Units 05:54 WBC 16.32 H (4.8-10.8) K/ul Hgb 13.4 L (14.0-18.0) g/dl Hct 40.9 (40.1-51.0) % Plt Count 182 (130-400) K/uL BMP 07/24/22 05:54 Sodium 142 Potassium 4.4 Chloride 111 H Carbon Dioxide 25 BUN 28 H Creatinine 2.20 H Glucose 155 H Calcium 7.9 L Liver Function 07/24/22 Range/Units 05:54 Total Bilirubin 0.8 (0.2-1.0) mg/dl AST 19 (13-39) U/L ALT 18 (7-52) U/L Alkaline Phosphatase 97 (34-104) U/L Albumin 3.1 L (3.4-5.0) gm/dl Medications Administered Current Inpatient Medications Acetaminophen (Acetaminophen 325 Mg Tab) 650 mg PO Q6H PRN PRN Reason: Pain Stop: 08/23/22 08:01 Last Admin: 07/24/22 08:42 Dose: 650 mg Acyclovir (Acyclovir 400 Mg Tab) 400 mg PO BID JOSE Stop: 08/23/22 08:59 Last Admin: 07/24/22 09:07 Dose: 400 mg Albuterol (Albuterol Hfa 8 Gm Inhaler) 2 puffs INH Q4H PRN PRN Reason: Cough Stop: 08/23/22 06:38 Dapsone (Dapsone 25 Mg Tab) 25 mg PO DAILY JOSE Stop: 08/23/22 08:59 Last Admin: 07/24/22 08:43 Dose: 25 mg Dextrose (Dextrose 50% 50 Ml Syringe) 25 - 50 ml IV UD PRN; Protocol PRN Reason: Hypoglycemia Protocol Stop: 08/23/22 06:29 Dronedarone (Dronedarone Hcl 400 Mg Tab) 400 mg PO BID JOSE Stop: 08/23/22 08:59 Last Admin: 07/24/22 09:07 Dose: 400 mg Escitalopram Oxalate (Escitalopram Oxalate 10 Mg Tab) 10 mg PO QAM JOSE Stop: 08/23/22 08:59 Last Admin: 07/24/22 08:43 Dose: 10 mg Finasteride (Finasteride 5 Mg Tab) 5 mg PO DAILY JOSE Stop: 08/23/22 08:59 Last Admin: 07/24/22 09:07 Dose: 5 mg Folic Acid (Folic Acid 400 Mcg Tab) 400 mcg PO DAILY JOSE Stop: 08/23/22 08:59 Last Admin: 07/24/22 08:43 Dose: 400 mcg Gabapentin (Gabapentin 800 Mg Tab) 800 mg PO BID JOSE Stop: 08/23/22 08:59 Last Admin: 07/24/22 08:43 Dose: 800 mg Glucagon (Glucagon For Inj 1 Mg Vial) 1 mg IM UD PRN; Protocol PRN Reason: Hypoglycemia Protocol Stop: 08/23/22 06:29 Glucose (Glucose 40% Gel 15 Gm Tube) 15 - 30 gm PO UD PRN; Protocol PRN Reason: Hypoglycemia Protocol Stop: 08/23/22 06:29 Glucose (Glucose 10 Tab/Tube) 4 - 8 tab PO UD PRN; Protocol PRN Reason: Hypoglycemia Protocol Stop: 08/23/22 06:29 Piperacillin Sod/Tazobactam (Sod 3.375 gm/ Dextrose) 115 mls @ 28.75 mls/hr IV Q8H JOSE; Protocol Stop: 07/31/22 05:35 Last Admin: 07/24/22 12:34 Dose: 28.8 mls/hr Azithromycin 500 mg/ Dextrose 255 mls @ 127.5 mls/hr IV Q24H [facility] Stop: 07/31/22 05:59 Last Infusion: 07/24/22 08:35 Dose: Infused Norepinephrine Bitartrate (Levophed/D5w) 4 mg in 250 mls @ 17.269 mls/hr IV .[id number] [facility]; Protocol Stop: 08/23/22 05:35 Last Titration: 07/24/22 08:00 Dose: 0 mcg/kg/min, 0 mls/hr Lactated Ringer's (Lr) 1,000 mls @ 110 mls/hr IV .[id number] [facility] Stop: 08/23/22 05:44 Last Admin: 07/24/22 05:30 Dose: 110 mls/hr Insulin Aspart (Insulin Aspart Per Unit) 0 units SC ACHS [facility] Stop: 08/23/22 07:29 Last Admin: 07/24/22 12:33 Dose: Not Given Midodrine (Midodrine Hcl 2.5 Mg Tab) 5 mg PO BID@0900,1400 [facility] Stop: 08/23/22 08:59 Last Admin: 07/24/22 08:43 Dose: 5 mg Miscellaneous (Icu Protocol For Hyperglycemia) 1 each N/A PRN PRN; Protocol PRN Reason: Hyperglycemia Protocol Stop: 07/26/22 05:35 Miscellaneous (Carbohydrates For Hypoglycemia ) 15 - 30 gm PO UD PRN PRN Reason: Hypoglycemia Treatment Stop: 08/23/22 06:29 Miscellaneous (Tenofovir Disoproxil Fumarate - Order Awaiting Action) 1 each N/A QS [facility] Stop: 08/23/22 07:59 Last Admin: 07/24/22 09:22 Dose: Not Given Oxycodone HCl (Oxycodone Hcl Ir 5 Mg Tab (Immediate Release)) 5 mg PO Q6H PRN PRN Reason: Pain Stop: 08/07/22 06:38 Pantoprazole Sodium (Pantoprazole 40 Mg Tab) 40 mg PO DAILY [facility] Stop: 08/23/22 08:59 Last Admin: 07/24/22 09:07 Dose: 40 mg Trazodone HCl (Trazodone Hcl 50 Mg Tab) 50 mg PO HS PRN PRN Reason: Insomnia Stop: 08/23/22 06:38 Warfarin Sodium (Warfarin Sod 2.5 Mg Tab) 2.5 mg PO [id number]@1600 [facility] Stop: 08/24/22 15:59 Warfarin Sodium (Warfarin Sod 1.25 Mg Tab) 1.25 mg PO TUSA@16 [facility] Stop: 08/23/22 15:59
--- NOTE | 2022-07-24 15:08 | Ultrasound Report ---
ABDOMINAL ULTRASOUND COMPLETE HISTORY: Right upper quadrant pain. eval gall bladder and pancrease for acute process. COMPARISON: Abdomen and pelvis CT 09/03/2020. FINDINGS: Pancreas: The pancreatic head and tail are obscured by overlying bowel gas. The remaining portions of the pancreas are within normal limits. Liver: 19 cm in length. Trace perihepatic ascites is noted. Gallbladder: Mildly thickened/edematous gallbladder wall. Negative sonographic Brar sign. CBD: 5 mm. Kidneys: No hydronephrosis. Spleen: Enlarged measuring 17.5 cm in length. Aorta: The proximal abdominal aorta is normal in caliber measuring 2.8 cm. The mid to distal abdomina l aorta are obscured by overlying bowel gas. IVC: Patent. IMPRESSION: 1. Mildly thickened gallbladder wall. However, no gallstones. This is likely due to the patient's kylah matous state rather than an acute cholecystitis. 2. Splenomegaly. 3. Trace perihepatic ascites. ACT 112: Negative or not required by law. Electronically signed by: Aron Talavera M.D. 07/24/2022 3:06 PM
[2022-07-24] MEDS ORDERED: WARFARIN SOD 1.25 MG TAB PO SCH (16:00)
[2022-07-24] MEDS ORDERED: LACTATED RINGER'S 1,000 ML IV SCH (18:15)
[2022-07-24 18:37] LABS: Basophils # (auto) 0.03 K/uL (0-0.2); Basophils % (auto) 0.3 %; Eosinophils # (auto) 0.08 K/uL (0-0.50); Eosinophils % (auto) 0.9 %; Hematocrit (blood only) 35.8 % (40.1-51.0); Hemoglobin 11.9 g/dl (14.0-18.0); Immature Granulocytes # (auto) 0.05 K/uL (0.00-0.02); Immature Granulocytes % (auto) 0.5 %; Lymphocytes # (auto) 0.15 K/uL (1.2-3.4); Lymphocytes % (auto) 1.6 %; Mean Corpuscular Hemoglobin 33.5 pg (25.0-34.0); Mean Corpuscular Hgb Conc 33.2 g/dL (32.0-36.0); Mean Corpuscular Volume 100.8 fL (80.0-100.0); Mean Platelet Volume 10.2 fL (9.4-12.4); Monocytes # (auto) 0.89 K/uL (0.24-0.82); Monocytes % (auto) 9.5 %; Neutrophils # (auto) 8.18 K/uL (1.4-6.5); Neutrophils % (auto) 87.2 %; Nucleated RBC # (auto) 0.02 K/uL (0-0); Nucleated RBC % (auto) 0.2 %; Platelet Count 128 K/uL (130-400); RDW Coefficient of Variation 14.3 % (11.5-14.5); RDW Standard Deviation 53.4 fL (36.4-46.3); Red Blood Count 3.55 M/uL (4.63-6.08); White Blood Count 9.38 K/ul (4.8-10.8)
[2022-07-24 19:00] LABS: BUN Creatinine Ratio 12.4 (10-20); Calcium 7.7 mg/dl (8.5-10.1); Creatinine Clr Calc Pharmacy 38.7 ml/min; Est GFR (African American) 32.8 ml/min; Est GFR (Non-African American) 28.3 ml/min; Magnesium 1.7 mg/dl (1.7-2.4); Potassium 3.9 mmol/L (3.5-5.1)
[2022-07-24] MEDS ORDERED: FUROSEMIDE INJ 20 MG/2 ML VIAL IV ONE (19:00)
[2022-07-24 22:11] LABS: Appearance Urine Clear (Clear); Bacteria Urine Automated Negative (Negative); Bilirubin Urine Negative (Negative); Blood Urine Negative (Negative); Color Urine Yellow; Epithelial Cell Urine Auto 20-30 /lpf (0-5); Glucose Urine UA Negative (Negative); Ketones Urine Negative (Negative); Leukocyte Esterase Urine Negative (Negative); Nitrite Urine Negative (Negative); Protein Urine 2+ (Negative); RBC Urine Automated 0-4 /hpf (0-4); Specific Gravity Urine 1.013 (1.000-1.030); Urobilinogen Urine Negative (Negative); pH Urine 5.5 (4.5-7.5)
[2022-07-25] MEDS: ACETAMINOPHEN 325 MG TAB PO PRN ×3 (01:05→15:02)
[2022-07-25] MEDS: PIPERACILLIN/TAZOBACTAM 3.375 GM in DEXTROSE 5% 100 ML IV SCH ×3 (04:29→21:10)
[2022-07-25 04:40] LABS: Basophils # (auto) 0.04 K/uL (0-0.2); Basophils % (auto) 0.3 %; Eosinophils # (auto) 0.12 K/uL (0-0.50); Hematocrit (blood only) 39.3 % (40.1-51.0); Hemoglobin 12.8 g/dl (14.0-18.0); Immature Granulocytes # (auto) 0.05 K/uL (0.00-0.02); Immature Granulocytes % (auto) 0.4 %; Lymphocytes % (auto) 2.5 %; Mean Corpuscular Hemoglobin 32.8 pg (25.0-34.0); Mean Corpuscular Hgb Conc 32.6 g/dL (32.0-36.0); Mean Corpuscular Volume 100.8 fL (80.0-100.0); Monocytes # (auto) 1.31 K/uL (0.24-0.82); Monocytes % (auto) 10.8 %; Neutrophils # (auto) 10.28 K/uL (1.4-6.5); Platelet Count 131 K/uL (130-400); RDW Coefficient of Variation 14.4 % (11.5-14.5); RDW Standard Deviation 53.2 fL (36.4-46.3)
[2022-07-25 04:57] LABS: INR 1.8 (0.9-1.1); Prothrombin Time 18.4 Seconds (9.0-12.0)
[2022-07-25 05:09] LABS: Albumin Globulin Ratio 1.4 (0.9-2); Albumin Level 3.3 gm/dl (3.4-5.0); BUN Creatinine Ratio 11.3 (10-20); Bilirubin Direct 0.3 mg/dl (0-0.2); Bilirubin,Total 0.8 mg/dl (0.2-1.0); Creatinine Clr Calc Pharmacy 36.5 ml/min; Est GFR (African American) 30.6 ml/min; Est GFR (Non-African American) 26.4 ml/min; Globulin 2.3 gm/dl (2.5-4.0); Magnesium 1.8 mg/dl (1.7-2.4); Phosphorus 2.8 mg/dl (2.5-4.9); Total Protein 5.6 gm/dl (6.0-8.3)
[2022-07-25] MEDS: AZITHROMYCIN 500 MG in DEXTROSE 5% 250 ML IV SCH (06:02)
[2022-07-25] MEDS: INSULIN ASPART PER UNIT SC SCH ×4 (08:23→21:11)
[2022-07-25] MEDS: FINASTERIDE 5 MG TAB PO SCH (09:36)
[2022-07-25] MEDS: GABAPENTIN 800 MG TAB PO SCH ×2 (09:36→21:11)
[2022-07-25] MEDS: PANTOprazole 40 MG TAB PO SCH (09:36)
[2022-07-25] MEDS: ACYCLOVIR 400 MG TAB PO SCH ×2 (09:36→21:11)
[2022-07-25] MEDS: ESCITALOPRAM OXALATE 10 MG TAB PO SCH (09:36)
[2022-07-25] MEDS: DRONEDARONE HCL 400 MG TAB PO SCH ×2 (09:36→21:11)
[2022-07-25] MEDS: FOLIC ACID 400 MCG TAB PO SCH (09:37)
[2022-07-25] MEDS: DAPSONE 25 MG TAB PO SCH (09:37)
[2022-07-25] MEDS: MIDODRINE HCL 2.5 MG TAB PO SCH ×2 (09:37→13:21)
[2022-07-25] MEDS ORDERED: FUROSEMIDE INJ 20 MG/2 ML VIAL IV ONE (11:28)
--- NOTE | 2022-07-25 11:35 | Hospitalist Progress Note ---
Date of Service July 25, 2022 Assessment & Plan (1) Severe sepsis: Plan: With septic shock History of lambda chain multiple myeloma with autologous stem cell transplant in 2015 and ongoing chemotherapy He has had chemo day before yesterday morning with daratumumab and carfilzomib After going home following chemo he felt sick with fever and chills, nausea vomiting and went to [facility] and found to have very low blood pressure and required Levophed administration Bibasilar pneumonia is a possibility and parainfluenza infection or even chemotherapy side effects Blood cultures have been taken and urine was negative for any infection Bio fire did show parainfluenza, patient does not have any symptoms Has been on intravenous Zosyn and azithromycin. Vancomycin has been discontinued Has been in ICU in [facility] Appreciate manager wireless input and recommendation He is off the pressors since this morning and the blood pressure is holding up on the lower side at systolic 90s Remains stable and the blood pressure is maintaining without any more pressor resents Complains to have minimal shortness of breath at rest Denies any chest pain and/or palpitation, no abdominal pain, nausea and or vomiting Seems to have fluid overload With cumulative fluid balance of more than 3 L Was on torsemide at home regularly Received a dose of 20 mg of intravenous Lasix yesterday Has had adequate urine output with improvement of clinical symptoms Will give another dose of Lasix of 20 mg IV today Creatinine is going up and will monitor PRP Possible bibasilar pneumonia Parainfluenza virus infection Procalcitonin is elevated Lactic acid has been normal We will continue with current antibiotic and await blood culture report Cultures have been negative so far-we will continue current antibiotic (2) Multiple myeloma: Plan: Has been getting chemotherapy every 3 to 4 weeks Will advised to drink about 1500 fluid daily (3) 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: Plan: History of chronic systolic heart failure secondary to restrictive cardiomyopathy due to amyloidosis Has chronic pleural effusion likely secondary to CHF Minimal leg swelling Has fluid overload and will restart her diuretics (4) CKD (chronic kidney disease) stage 3, GFR 30-59 ml/min: Plan: Acute on chronic kidney disease Creatinine was noted to be elevated at 2.20 Will monitor BMP-creatinine is up at 2.66 Will monitor (5) Diabetes type 2, uncontrolled: Plan: Has been on sliding scale insulin coverage (6) Chronic diastolic CHF (congestive heart failure): Plan: Received cautious amount of intravenous fluid to correct hypotension and ARSENIO Has bilateral pleural effusion with edema IV fluid has been stopped (7) Paroxysmal atrial fibrillation: Plan: Rate is controlled Mild elevation of troponin Doubt any ACS Plan DVT prophylaxis On Eliquis CODE STATUS Full Discussed with the We will transfer the patient to PCU Admission and Anticipated Discharge Date Admission Date: July 24, 2022 Subjective 07/24/2022 The patient was seen and examined in ICU He has been feeling much better but remains extremely weak and has been complaining of diarrhea without any abdominal pain, nausea and or vomiting Did not have any fever, cough or shortness of breath prior to chemotherapy yesterday morning Symptoms started in the evening with fever and weakness and was brought in to the hospital 07/25/2022 The patient was seen and examined in ICU in presence of the family member He has been complaining of some shortness of breath at rest He feels bloated Denies any abdominal pain, nausea and or vomiting Review of Systems Review of Systems: All systems reviewed and are unremarkable except as noted below Physical Exam Physical Exam: Sitting at the edge of the bed without any apparent distress Constitutional: well developed, well nourished, + ill appearing and + obese Eyes: PERRL, conjunctivae normal, anicteric sclerae ENMT: external ear and nose normal, oropharynx normal Neck: trachea midline, no thyromegaly Respiratory: + respiratory distress (Minimal distress at rest); no labored breathing Auscultation: + diminished lung sounds (At the bases) and + crackles (Minimal crackles) Cardiovascular: Rate/Rhythm: regular rate and regular rhythm; not tachycardic Heart Sounds: normal S1, normal S2 and + murmur Extremities: + edema (1+ edema bilaterally more on the left than the right) Gastrointestinal (Abdomen): Inspection/Auscultation: + abdomen distended and normal bowel sounds Percussion/Palpation: abdomen soft; abdomen nontender Musculoskeletal: No acute arthritis in any joint Neurologic: Alert, awake and oriented x3. Generally weak Lymphatic: no cervical or axillary lymphadenopathy Results & Data Results & Data ([facility]) Vital Signs (Past 12 Hours) Vital Signs Temp Pulse Resp BP Pulse Ox O2 Del Method O2 Flow Rate 07/25/22 08:00 80 07/25/22 03:05 75 22 95 2 07/25/22 06:00 75 24 100/68 95 CPAP 2 07/25/22 05:00 76 22 96/55 L 93 CPAP 2 07/25/22 04:13 37.4 C 81 22 115/83 94 CPAP 2 07/25/22 03:00 74 26 H 99/61 L 95 CPAP 2 07/25/22 02:00 71 23 107/67 94 CPAP 2 07/25/22 01:00 75 19 111/73 97 CPAP 2 07/25/22 00:00 69 18 99/59 L 94 CPAP 2 Laboratory Results Short CBC 07/24/22 07/25/22 Range/Units 18:19 04:33 WBC 9.38 12.10 H (4.8-10.8) K/ul Hgb 11.9 L 12.8 L (14.0-18.0) g/dl Hct 35.8 L 39.3 L (40.1-51.0) % Plt Count 128 L 131 (130-400) K/uL BMP 07/24/22 07/25/22 18:19 04:33 Sodium 134 L 136 Potassium 3.9 4.0 Chloride 104 105 Carbon Dioxide 25 24 BUN 31 H 30 H Creatinine 2.51 H D 2.66 H Glucose 146 H 100 H Calcium 7.7 L 8.0 L Liver Function 07/25/22 Range/Units 04:33 Total Bilirubin 0.8 (0.2-1.0) mg/dl Direct Bilirubin 0.3 H (0-0.2) mg/dl AST 21 (13-39) U/L ALT 24 (7-52) U/L Alkaline Phosphatase 100 (34-104) U/L Albumin 3.3 L (3.4-5.0) gm/dl Urine 07/24/22 Range/Units 21:25 Urine Color Yellow Urine Appearance Clear (Clear) Urine pH 5.5 (4.5-7.5) Ur Specific [place] 1.013 (1.000-1.030) Urine Protein 2+ H (Negative) Urine Glucose (UA) Negative (Negative) Medications Administered Current Inpatient Medications Acetaminophen (Acetaminophen 325 Mg Tab) 650 mg PO Q6H PRN PRN Reason: Pain Stop: 08/23/22 08:01 Last Admin: 07/25/22 07:40 Dose: 650 mg Acyclovir (Acyclovir 400 Mg Tab) 400 mg PO BID [facility]; Protocol Stop: 08/23/22 08:59 Last Admin: 07/25/22 09:36 Dose: 400 mg Albuterol (Albuterol Hfa 8 Gm Inhaler) 2 puffs INH Q4H PRN PRN Reason: Cough Stop: 08/23/22 06:38 Dapsone (Dapsone 25 Mg Tab) 25 mg PO DAILY JOSE Stop: 08/23/22 08:59 Last Admin: 07/25/22 09:37 Dose: 25 mg Dextrose (Dextrose 50% 50 Ml Syringe) 25 - 50 ml IV UD PRN; Protocol PRN Reason: Hypoglycemia Protocol Stop: 08/23/22 06:29 Dronedarone (Dronedarone Hcl 400 Mg Tab) 400 mg PO BID JOSE Stop: 08/23/22 08:59 Last Admin: 07/25/22 09:36 Dose: 400 mg Escitalopram Oxalate (Escitalopram Oxalate 10 Mg Tab) 10 mg PO QAM JSOE Stop: 08/23/22 08:59 Last Admin: 07/25/22 09:36 Dose: 10 mg Finasteride (Finasteride 5 Mg Tab) 5 mg PO DAILY JOSE Stop: 08/23/22 08:59 Last Admin: 07/25/22 09:36 Dose: 5 mg Folic Acid (Folic Acid 400 Mcg Tab) 400 mcg PO DAILY JOSE Stop: 08/23/22 08:59 Last Admin: 07/25/22 09:37 Dose: 400 mcg Gabapentin (Gabapentin 800 Mg Tab) 800 mg PO BID JOSE Stop: 08/23/22 08:59 Last Admin: 07/25/22 09:36 Dose: 800 mg Glucagon (Glucagon For Inj 1 Mg Vial) 1 mg IM UD PRN; Protocol PRN Reason: Hypoglycemia Protocol Stop: 08/23/22 06:29 Glucose (Glucose 40% Gel 15 Gm Tube) 15 - 30 gm PO UD PRN; Protocol PRN Reason: Hypoglycemia Protocol Stop: 08/23/22 06:29 Glucose (Glucose 10 Tab/Tube) 4 - 8 tab PO UD PRN; Protocol PRN Reason: Hypoglycemia Protocol Stop: 08/23/22 06:29 Piperacillin Sod/Tazobactam (Sod 3.375 gm/ Dextrose) 115 mls @ 28.75 mls/hr IV Q8H JOSE; Protocol Stop: 07/31/22 05:35 Last Infusion: 07/25/22 10:19 Dose: Infused Azithromycin 500 mg/ Dextrose 255 mls @ 127.5 mls/hr IV Q24H [facility] Stop: 07/31/22 05:59 Last Infusion: 07/25/22 08:02 Dose: Infused Insulin Aspart (Insulin Aspart Per Unit) 0 units SC ACHS [facility] Stop: 08/23/22 07:29 Last Admin: 07/25/22 08:23 Dose: Not Given Midodrine (Midodrine Hcl 2.5 Mg Tab) 5 mg PO BID@0900,1400 [facility] Stop: 08/23/22 08:59 Last Admin: 07/25/22 09:37 Dose: 5 mg Miscellaneous (Icu Protocol For Hyperglycemia) 1 each N/A PRN PRN; Protocol PRN Reason: Hyperglycemia Protocol Stop: 07/26/22 05:35 Miscellaneous (Carbohydrates For Hypoglycemia ) 15 - 30 gm PO UD PRN PRN Reason: Hypoglycemia Treatment Stop: 08/23/22 06:29 Miscellaneous (Tenofovir Disoproxil Fumarate - Order Awaiting Action) 1 each N/A QS [facility] Stop: 08/23/22 07:59 Last Admin: 07/25/22 08:23 Dose: Not Given Oxycodone HCl (Oxycodone Hcl Ir 5 Mg Tab (Immediate Release)) 5 mg PO Q6H PRN PRN Reason: Pain Stop: 08/07/22 06:38 Pantoprazole Sodium (Pantoprazole 40 Mg Tab) 40 mg PO DAILY [facility] Stop: 08/23/22 08:59 Last Admin: 07/25/22 09:36 Dose: 40 mg Trazodone HCl (Trazodone Hcl 50 Mg Tab) 50 mg PO HS PRN PRN Reason: Insomnia Stop: 08/23/22 06:38 Warfarin Sodium (Warfarin Sod 2.5 Mg Tab) 2.5 mg PO [id number]@1600 [facility] Stop: 08/24/22 15:59 Warfarin Sodium (Warfarin Sod 1.25 Mg Tab) 1.25 mg PO TUSA@16 [facility] Stop: 08/23/22 15:59 Last Admin: 07/24/22 17:16 Dose: 1.25 mg
[2022-07-25] MEDS ORDERED: WARFARIN SOD 2.5 MG TAB PO SCH (16:00)
[2022-07-25] MEDS ORDERED: HEPARIN 100 UNIT/ML 5ML FLUSH FLUSH PRN (22:55)
[2022-07-26] MEDS: PIPERACILLIN/TAZOBACTAM 3.375 GM in DEXTROSE 5% 100 ML IV SCH ×3 (03:43→21:11)
[2022-07-26 05:13] LABS: Albumin Level 3.3 gm/dl (3.4-5.0); Bilirubin Direct 0.1 mg/dl (0-0.2); Bilirubin,Total 0.6 mg/dl (0.2-1.0); INR 1.7 (0.9-1.1); Magnesium 2.1 mg/dl (1.7-2.4); Phosphorus 3.4 mg/dl (2.5-4.9); Prothrombin Time 17.2 Seconds (9.0-12.0); Total Protein 5.6 gm/dl (6.0-8.3)
[2022-07-26 05:42] LABS: Basophils # (auto) 0.05 K/uL (0-0.2); Basophils % (auto) 0.4 %; Eosinophils # (auto) 0.13 K/uL (0-0.50); Eosinophils % (auto) 1.1 %; Hematocrit (blood only) 38.2 % (40.1-51.0); Hemoglobin 12.7 g/dl (14.0-18.0); Immature Granulocytes # (auto) 0.04 K/uL (0.00-0.02); Immature Granulocytes % (auto) 0.4 %; Lymphocytes # (auto) 0.25 K/uL (1.2-3.4); Lymphocytes % (auto) 2.2 %; Mean Corpuscular Hemoglobin 32.9 pg (25.0-34.0); Mean Corpuscular Hgb Conc 33.2 g/dL (32.0-36.0); Monocytes # (auto) 1.17 K/uL (0.24-0.82); Monocytes % (auto) 10.3 %; Neutrophils # (auto) 9.76 K/uL (1.4-6.5); Neutrophils % (auto) 85.6 %; Nucleated RBC # (auto) 0.02 K/uL (0-0); Nucleated RBC % (auto) 0.2 %; Platelet Count 125 K/uL (130-400); Platelet Estimate Normal (Normal); RDW Coefficient of Variation 14.2 % (11.5-14.5); RDW Standard Deviation 51.9 fL (36.4-46.3); Red Blood Count 3.86 M/uL (4.63-6.08)
[2022-07-26] MEDS: AZITHROMYCIN 500 MG in DEXTROSE 5% 250 ML IV SCH (06:38)
[2022-07-26] MEDS: INSULIN ASPART PER UNIT SC SCH ×4 (07:50→22:01)
[2022-07-26] MEDS: NOREPINEPHRINE/D5W 4 MG/250 ML PLCT IV SCH (08:17)
[2022-07-26] MEDS: DAPSONE 25 MG TAB PO SCH (08:54)
[2022-07-26] MEDS: ESCITALOPRAM OXALATE 10 MG TAB PO SCH (08:54)
[2022-07-26] MEDS: ACYCLOVIR 400 MG TAB PO SCH ×2 (08:54→21:05)
[2022-07-26] MEDS: DRONEDARONE HCL 400 MG TAB PO SCH ×2 (08:54→21:05)
[2022-07-26] MEDS: PANTOprazole 40 MG TAB PO SCH (08:55)
[2022-07-26] MEDS: FINASTERIDE 5 MG TAB PO SCH (08:55)
[2022-07-26] MEDS: MIDODRINE HCL 2.5 MG TAB PO SCH ×2 (08:55→14:06)
[2022-07-26] MEDS: FOLIC ACID 400 MCG TAB PO SCH (08:55)
[2022-07-26] MEDS: GABAPENTIN 800 MG TAB PO SCH (08:55)
[2022-07-26 09:09] LABS: BUN Creatinine Ratio 11.5 (10-20); Calcium 8.5 mg/dl (8.5-10.1); Creatinine Clr Calc Pharmacy 35.5 ml/min
[2022-07-26] MEDS: ACETAMINOPHEN 325 MG TAB PO PRN ×2 (12:24→23:53)
--- NOTE | 2022-07-26 15:17 | XRay Report ---
XR chest 1V portable CLINICAL HISTORY: CHF TECHNIQUE: Single frontal radiograph of the chest was obtained. Comparison: Comparison is made to chest radiograph 06/08/2022 FINDINGS: A port catheter is seen. Cardiomegaly is noted. The lungs are clear. Small bilateral pleural effusion s are seen. IMPRESSION: Small bilateral pleural effusions. Stable cardiomegaly. No airspace disease and no significant pulmon yahaira edema. ACT 112: Negative or not required by law. Electronically signed by: Eddie Tinoco M.D. 07/26/2022 3:16 PM
[2022-07-26] MEDS ORDERED: WARFARIN SOD 5 MG TAB PO ONE (16:00)
--- NOTE | 2022-07-26 16:26 | Hospitalist Progress Note ---
Date of Service July 26, 2022 Assessment & Plan (1) Severe sepsis: Plan: With septic shock History of lambda chain multiple myeloma with autologous stem cell transplant in 2015 and ongoing chemotherapy He has had chemo day before yesterday morning with daratumumab and carfilzomib After going home following chemo he felt sick with fever and chills, nausea vomiting and went to [facility] and found to have very low blood pressure and required Levophed administration Bibasilar pneumonia is a possibility and parainfluenza infection or even chemotherapy side effects Blood cultures have been taken and urine was negative for any infection Bio fire did show parainfluenza, patient does not have any symptoms Has been on intravenous Zosyn and azithromycin. Vancomycin has been discontinued Has been in ICU in [facility] Appreciate optical effects line up person input and recommendation He is off the pressors since this morning and the blood pressure is holding up on the lower side at systolic 90s Remains stable and the blood pressure is maintaining without any more pressor resents Complains to have minimal shortness of breath at rest Clinically much better but complains to have some nausea No abdominal distention and/or pain Seems to have fluid overload With cumulative fluid balance of more than 3 L Was on torsemide at home regularly Received a dose of 20 mg of intravenous Lasix yesterday Has had adequate urine output with improvement of clinical symptoms Will give another dose of Lasix of 20 mg IV today Creatinine is going up and will monitor PRP Creatinine has gone up to 2.78-will not give any more Lasix today Advised to drink more fluid and monitor PRP tomorrow Possible bibasilar pneumonia Parainfluenza virus infection Procalcitonin is elevated Lactic acid has been normal We will continue with current antibiotic and await blood culture report Cultures have been negative so far-we will continue current antibiotic Chest x-ray showing bibasilar infiltrate We will continue Zosyn IV for now (2) Multiple myeloma: Plan: Has been getting chemotherapy every 3 to 4 weeks Will advised to drink about 1500 fluid daily (3) 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: Plan: History of chronic systolic heart failure secondary to restrictive cardiomyopathy due to amyloidosis Has chronic pleural effusion likely secondary to CHF Minimal leg swelling Has fluid overload and will restart her diuretics Still has more than 3 L of positive balance (4) CKD (chronic kidney disease) stage 3, GFR 30-59 ml/min: Plan: Acute on chronic kidney disease Creatinine was noted to be elevated at 2.20 Will monitor BMP-creatinine is up at 2.66 Will monitor-kidney function is worsening with creatinine at 2.78 today Will hold Lasix for today but advised to drink more fluid Medications adjusted as per creatinine clearance with decreasing dose of gabapentin Will check PRP tomorrow (5) Diabetes type 2, uncontrolled: Plan: Has been on sliding scale insulin coverage (6) Chronic diastolic CHF (congestive heart failure): Plan: Received cautious amount of intravenous fluid to correct hypotension and ARSENIO Has bilateral pleural effusion with edema IV fluid has been stopped (7) Paroxysmal atrial fibrillation: Plan: Rate is controlled Mild elevation of troponin Doubt any ACS Plan DVT prophylaxis On Eliquis CODE STATUS Full Discussed with the We will transfer the patient to PCU-medical telemetry unit Admission and Anticipated Discharge Date Admission Date: July 24, 2022 Subjective 07/24/2022 The patient was seen and examined in ICU He has been feeling much better but remains extremely weak and has been complaining of diarrhea without any abdominal pain, nausea and or vomiting Did not have any fever, cough or shortness of breath prior to chemotherapy yesterday morning Symptoms started in the evening with fever and weakness and was brought in to the hospital 07/25/2022 The patient was seen and examined in ICU in presence of the family member He has been complaining of some shortness of breath at rest He feels bloated Denies any abdominal pain, nausea and or vomiting 07/26/2022 The patient was seen and examined in ICU in presence of the family member He has been feeling much better Remains generally weak but denies any other symptoms Feels sweaty but no fever and or chills Review of Systems Review of Systems: All systems reviewed and are unremarkable except as noted below Physical Exam Physical Exam: Sitting at the edge of the bed without any apparent distress Constitutional: well developed, well nourished, + ill appearing and + obese Eyes: PERRL, conjunctivae normal, anicteric sclerae ENMT: external ear and nose normal, oropharynx normal Neck: trachea midline, no thyromegaly Respiratory: + respiratory distress (Minimal distress at rest); no labored breathing Auscultation: + diminished lung sounds (At the bases) and + crackles (Minimal crackles) Cardiovascular: Rate/Rhythm: regular rate and regular rhythm; not tachycardic Heart Sounds: normal S1, normal S2 and + murmur Extremities: + edema (1+ edema bilaterally more on the left than the right) Gastrointestinal (Abdomen): Inspection/Auscultation: + abdomen distended and normal bowel sounds Percussion/Palpation: abdomen soft; abdomen nontender Musculoskeletal: No acute arthritis involving any joint Neurologic: Alert, awake and oriented x3. No focal sensory or motor deficit appreciated Psychiatric: A+Ox3, euthymic affect Lymphatic: no cervical or axillary lymphadenopathy Results & Data Results & Data ([facility]) Vital Signs (Past 12 Hours) Vital Signs Temp Pulse Resp BP Pulse Ox Pulse Ox O2 Del Method 07/26/22 15:16 36.7 C 65 18 129/88 97 07/26/22 09:00 Room Air 07/26/22 09:00 36.6 C 72 18 103/75 95 Room Air 07/26/22 09:00 95 O2 Del Method 07/26/22 15:16 07/26/22 09:00 07/26/22 09:00 07/26/22 09:00 Room Air Laboratory Results Short CBC 07/26/22 Range/Units 04:09 WBC 11.40 H (4.8-10.8) K/ul Hgb 12.7 L (14.0-18.0) g/dl Hct 38.2 L (40.1-51.0) % Plt Count 125 L (130-400) K/uL BMP 07/26/22 07:48 Sodium 133 L Potassium 4.0 Chloride 102 Carbon Dioxide 25 BUN 32 H Creatinine 2.78 H Glucose 159 H Calcium 8.5 Liver Function 07/26/22 Range/Units 04:09 Total Bilirubin 0.6 (0.2-1.0) mg/dl Direct Bilirubin 0.1 (0-0.2) mg/dl AST 15 (13-39) U/L ALT 22 (7-52) U/L Alkaline Phosphatase 87 (34-104) U/L Albumin 3.3 L (3.4-5.0) gm/dl Medications Administered Current Inpatient Medications Acetaminophen (Acetaminophen 325 Mg Tab) 650 mg PO Q6H PRN PRN Reason: Pain Stop: 08/23/22 08:01 Last Admin: 07/26/22 12:24 Dose: 650 mg Acyclovir (Acyclovir 400 Mg Tab) 400 mg PO BID [facility]; Protocol Stop: 08/23/22 08:59 Last Admin: 07/26/22 08:54 Dose: 400 mg Albuterol (Albuterol Hfa 8 Gm Inhaler) 2 puffs INH Q4H PRN PRN Reason: Cough Stop: 08/23/22 06:38 Dapsone (Dapsone 25 Mg Tab) 25 mg PO DAILY JOSE Stop: 08/23/22 08:59 Last Admin: 07/26/22 08:54 Dose: 25 mg Dextrose (Dextrose 50% 50 Ml Syringe) 25 - 50 ml IV UD PRN; Protocol PRN Reason: Hypoglycemia Protocol Stop: 08/23/22 06:29 Dronedarone (Dronedarone Hcl 400 Mg Tab) 400 mg PO BID JOSE Stop: 08/23/22 08:59 Last Admin: 07/26/22 08:54 Dose: 400 mg Escitalopram Oxalate (Escitalopram Oxalate 10 Mg Tab) 10 mg PO QAM JOSE Stop: 08/23/22 08:59 Last Admin: 07/26/22 08:54 Dose: 10 mg Finasteride (Finasteride 5 Mg Tab) 5 mg PO DAILY JOSE Stop: 08/23/22 08:59 Last Admin: 07/26/22 08:55 Dose: 5 mg Folic Acid (Folic Acid 400 Mcg Tab) 400 mcg PO DAILY JOSE Stop: 08/23/22 08:59 Last Admin: 07/26/22 08:55 Dose: 400 mcg Gabapentin (Gabapentin 400 Mg Cap) 400 mg PO BID JOSE Stop: 08/25/22 20:59 Glucagon (Glucagon For Inj 1 Mg Vial) 1 mg IM UD PRN; Protocol PRN Reason: Hypoglycemia Protocol Stop: 08/23/22 06:29 Glucose (Glucose 40% Gel 15 Gm Tube) 15 - 30 gm PO UD PRN; Protocol PRN Reason: Hypoglycemia Protocol Stop: 08/23/22 06:29 Glucose (Glucose 10 Tab/Tube) 4 - 8 tab PO UD PRN; Protocol PRN Reason: Hypoglycemia Protocol Stop: 08/23/22 06:29 Heparin Sodium (Porcine) (Heparin 100 Unit/Ml 5ml Flush) 5 ml FLUSH PRN PRN PRN Reason: Flush Stop: 08/24/22 22:54 Heparin Sodium (Porcine) (Heparin Sod 5,000 Unit/0.5 Ml Vial) 5,000 units SQ Q12 JOSE Stop: 08/25/22 20:59 Piperacillin Sod/Tazobactam (Sod 3.375 gm/ Dextrose) 115 mls @ 28.75 mls/hr IV Q8H [facility]; Protocol Stop: 07/31/22 05:35 Last Admin: 07/26/22 12:25 Dose: 28.8 mls/hr Insulin Aspart (Insulin Aspart Per Unit) 0 units SC ACHS [facility] Stop: 08/23/22 07:29 Last Admin: 07/26/22 12:00 Dose: Not Given Midodrine (Midodrine Hcl 2.5 Mg Tab) 5 mg PO BID@0900,1400 [facility] Stop: 08/23/22 08:59 Last Admin: 07/26/22 14:06 Dose: 5 mg Miscellaneous (Carbohydrates For Hypoglycemia ) 15 - 30 gm PO UD PRN PRN Reason: Hypoglycemia Treatment Stop: 08/23/22 06:29 Miscellaneous (Tenofovir Disoproxil Fumarate - Order Awaiting Action) 1 each N/A QS [facility] Stop: 08/23/22 07:59 Last Admin: 07/26/22 15:06 Dose: Not Given Oxycodone HCl (Oxycodone Hcl Ir 5 Mg Tab (Immediate Release)) 5 mg PO Q6H PRN PRN Reason: Pain Stop: 08/07/22 06:38 Last Admin: 07/25/22 21:28 Dose: 5 mg Pantoprazole Sodium (Pantoprazole 40 Mg Tab) 40 mg PO DAILY [facility] Stop: 08/23/22 08:59 Last Admin: 07/26/22 08:55 Dose: 40 mg Trazodone HCl (Trazodone Hcl 50 Mg Tab) 50 mg PO HS PRN PRN Reason: Insomnia Stop: 08/23/22 06:38 Warfarin Sodium (Warfarin Sod 2.5 Mg Tab) 2.5 mg PO [id number]@1600 [facility] Stop: 08/24/22 15:59 Last Admin: 07/25/22 16:21 Dose: 2.5 mg Warfarin Sodium (Warfarin Sod 1.25 Mg Tab) 1.25 mg PO TUSA@16 [facility] Stop: 08/23/22 15:59 Last Admin: 07/24/22 17:16 Dose: 1.25 mg
[2022-07-26] MEDS: PROMETHAZINE HCL 12.5 MG in SODIUM CHLORIDE 0.9% 50 ML IV PRN (18:45)
[2022-07-26] MEDS ORDERED: HEPARIN SOD 5,000 UNIT/0.5 ML VIAL SQ SCH (21:00)
[2022-07-26] MEDS: GABAPENTIN 400 MG CAP PO SCH (21:04)
[2022-07-27] MEDS: PIPERACILLIN/TAZOBACTAM 3.375 GM in DEXTROSE 5% 100 ML IV SCH ×3 (04:29→20:17)
[2022-07-27 06:27] LABS: INR 3.7 (0.9-1.1); Prothrombin Time 36.8 Seconds (9.0-12.0)
[2022-07-27 06:33] LABS: Basophils # (auto) 0.03 K/uL (0-0.2); Basophils % (auto) 0.3 %; Eosinophils # (auto) 0.17 K/uL (0-0.50); Eosinophils % (auto) 1.9 %; Hematocrit (blood only) 38.5 % (40.1-51.0); Hemoglobin 12.9 g/dl (14.0-18.0); Immature Granulocytes # (auto) 0.04 K/uL (0.00-0.02); Immature Granulocytes % (auto) 0.4 %; Lymphocytes # (auto) 0.19 K/uL (1.2-3.4); Lymphocytes % (auto) 2.1 %; Mean Corpuscular Hemoglobin 32.9 pg (25.0-34.0); Mean Corpuscular Hgb Conc 33.5 g/dL (32.0-36.0); Mean Corpuscular Volume 98.2 fL (80.0-100.0); Mean Platelet Volume 11.3 fL (9.4-12.4); Monocytes # (auto) 1.01 K/uL (0.24-0.82); Monocytes % (auto) 11.3 %; Neutrophils # (auto) 7.48 K/uL (1.4-6.5); Platelet Count 114 K/uL (130-400); RDW Coefficient of Variation 13.8 % (11.5-14.5); RDW Standard Deviation 50.2 fL (36.4-46.3); Red Blood Count 3.92 M/uL (4.63-6.08); White Blood Count 8.92 K/ul (4.8-10.8)
[2022-07-27 06:50] LABS: Albumin Level 3.1 gm/dl (3.4-5.0); BUN Creatinine Ratio 11.1 (10-20); Bilirubin Direct 0.2 mg/dl (0-0.2); Bilirubin,Total 0.7 mg/dl (0.2-1.0); Calcium 8.6 mg/dl (8.5-10.1); Creatinine Clr Calc Pharmacy 31.7 ml/min; Est GFR (African American) 25.7 ml/min; Est GFR (Non-African American) 22.2 ml/min; Magnesium 2.2 mg/dl (1.7-2.4); Phosphorus 3.8 mg/dl (2.5-4.9); Potassium 3.8 mmol/L (3.5-5.1); Total Protein 5.4 gm/dl (6.0-8.3)
[2022-07-27] MEDS: INSULIN ASPART PER UNIT SC SCH ×4 (08:13→22:50)
[2022-07-27] MEDS: MIDODRINE HCL 2.5 MG TAB PO SCH ×2 (08:41→13:54)
[2022-07-27] MEDS: FINASTERIDE 5 MG TAB PO SCH (08:41)
[2022-07-27] MEDS: ESCITALOPRAM OXALATE 10 MG TAB PO SCH (08:41)
[2022-07-27] MEDS: DAPSONE 25 MG TAB PO SCH (08:41)
[2022-07-27] MEDS: PANTOprazole 40 MG TAB PO SCH (08:41)
[2022-07-27] MEDS: GABAPENTIN 400 MG CAP PO SCH ×2 (08:42→20:14)
[2022-07-27] MEDS: ACYCLOVIR 400 MG TAB PO SCH ×2 (08:42→20:15)
[2022-07-27] MEDS: DRONEDARONE HCL 400 MG TAB PO SCH ×2 (08:42→20:15)
[2022-07-27] MEDS: FOLIC ACID 400 MCG TAB PO SCH (08:42)
[2022-07-27] MEDS: ACETAMINOPHEN 325 MG TAB PO PRN ×2 (10:30→17:19)
--- NOTE | 2022-07-27 12:07 | Consultation Report ---
NEPHROLOGY CONSULTATION NOTE REASON FOR CONSULTATION: Acute on chronic renal failure. HISTORY OF PRESENT ILLNESS: The patient is a 52-year-old male with history of cardiac amyloidosis with restrictive cardiomyopathy, lambda light chain multiple myeloma, status post autologous stem cell transplant in 2014, atrial fibrillation, on Coumadin, type 2 diabetes, coronary artery disease, hyperlipidemia, history of orthostatic hypotension, more recent baseline creatinine is in the high 1s, at least that is what it was at the time of discharge on 06/09/2022 with a creatinine of 1.76. He presented to [facility] with fever, chills, very weak, confusion with some nausea and vomiting. He was given antibiotics for pneumonia and was found to have pleural effusion/pneumonia with septic shock with very low blood pressure. The patient was transferred to [facility] where he was started on Levophed and blood pressure did improve. He feels somewhat better. He received a small dose of diuretics, then received some IV fluid; however, his creatinine continued to get worse. On admission, it was 2.2 and in the last 3 days, it has been worsening every day and is up to 3.07 now; however, blood pressure has improved. The patient still on room air, but he is definitely more short of breath than usual and has orthopnea as well as worsening lower extremity edema. Currently, he is not on any IV fluid and he is not getting any diuretics. The patient was getting tenofovir, which is currently on hold. Gabapentin dose has been cut down and as for the antibiotic, he is getting Zosyn. No other nephrotoxic medicine. He is making urine, but he feels he is making less than usual. Yesterday, he made 375 mL of urine, which is declining. ALLERGIES: ATORVASTATIN AND ZETIA. PAST MEDICAL AND SURGICAL HISTORY: As detailed in HPI. On top of that, also had congenital solitary right kidney, central line placement, colonoscopy, EGD, tunnel catheter with A port, cataract, vasectomy. MEDICATIONS: At home includes finasteride and midodrine, oxycodone, torsemide alternate day of 20 mg and 40 mg, folic acid, trazodone, dexamethasone during chemo, Multaq 400 twice daily, tenofovir for hepatitis B, dapsone 25 daily, potassium chloride every other day, gabapentin, Coumadin, Lexapro, Protonix, Repatha, albuterol, Flonase, oxygen at bedtime with CPAP. FAMILY HISTORY: No renal disease or dialysis. SOCIAL HISTORY: . He chews tobacco. No alcohol, no drugs. Lives with his . REVIEW OF SYSTEMS: As detailed in HPI. Positive included fever, chills, weakness, nausea, vomiting, some diarrhea. Otherwise, 12 systems reviewed and negative. PHYSICAL EXAMINATION: GENERAL: A middle-aged white male who is moderately built. He is awake, alert, oriented x3 and was able to give me a detailed account of his medical problem. HEENT: Mucous membrane is moist. NECK: Supple. No jugular venous distention. VITAL SIGNS: Blood pressure is 128/94, pulse rate 70, temperature 36.5, 98% on room air. CHEST: Bilateral decreased breath sounds, occasional crackles. CARDIOVASCULAR: S1 and S2, irregular. Soft systolic murmur heard. ABDOMEN: Soft, nontender. EXTREMITIES: Show 1-2+ edema bilaterally. NEUROLOGIC: Awake, alert, oriented x 3, normal speech. Moving all 4 extremities. LABORATORY TEST AND IMAGING: Chest x-ray shows small bilateral effusion, cardiomegaly. No clear pulmonary edema. Abdominal ultrasound shows no hydronephrosis. There is some ascites. Laboratory test at the time of discharge on 06/09/2022, he had a creatinine of 1.76, which we can count as a baseline. On admission, it was 2.20 and in 3 days, it has gone up to 3.07. Sodium is now 135, potassium 3.8, chloride 104, bicarbonate 25, calcium 8.6, albumin 3.1. Urine is negative for blood, 2+ protein, 20-30 epithelial cells. WBC count 8.9, platelet count 114, hemoglobin 12.9. ASSESSMENT AND PLAN: A 52-year-old male with a baseline CKD IIIB with congenital solitary kidney as well as multiple myeloma, including cardiac amyloidosis. Now admitted with sepsis with most likely primary source being pulmonary infection. He had severe hypotension at the time of presentation, which almost certainly caused ATN given that he is extremely susceptible to this because of his underlying conditions. 1. Acute renal failure: This is secondary to ATN in the setting of sepsis from pneumonia. He is fluid overloaded at this time, but given the situation with multiple myeloma and worsening kidney function, I would like to hold off on the diuretics for today, but definitely do not give him more fluid and I do want him to be on a fluid restriction of no more than 1200 mL per day. Consider renal adjusting the dose of acyclovir and preferably switching to a different agent. I agree with holding tenofovir, agree with cutting down the dose of gabapentin as much as possible, avoid nephrotoxic antibiotics. However, the main issue is to support the hemodynamic status. fortunately, his blood pressure and oxygen level at this time is quite good, so that will help with his renal recovery. It is concerning to see decreasing urine output for the last few days with worsening creatinine. At this rate, he cannot be without diuretics for too many days and most likely we will start from tomorrow. Thank you very much for the consult. Job ID: [id number] TEDDY
--- NOTE | 2022-07-27 14:15 | Hospitalist Progress Note ---
Date of Service July 27, 2022 Assessment & Plan (1) Severe sepsis: Plan: With septic shock History of lambda chain multiple myeloma with autologous stem cell transplant in 2015 and ongoing chemotherapy He has had chemo day before yesterday morning with daratumumab and carfilzomib After going home following chemo he felt sick with fever and chills, nausea vomiting and went to [facility] and found to have very low blood pressure and required Levophed administration Bibasilar pneumonia is a possibility and parainfluenza infection or even chemotherapy side effects Blood cultures have been taken and urine was negative for any infection Bio fire did show parainfluenza, patient does not have any symptoms Has been on intravenous Zosyn and azithromycin. Vancomycin has been discontinued Has been in ICU in [facility] Appreciate canceling machine operator input and recommendation He is off the pressors since this morning and the blood pressure is holding up on the lower side at systolic 90s Remains stable and the blood pressure is maintaining without any more pressor resents Complains to have minimal shortness of breath at rest Clinically much better but complains to have some nausea No abdominal distention and/or pain No more fever and or chills-pancultures when negative except parainfluenza PCR was positive on and the chest x-ray does not show any infiltration as of 07/26/2022 Will DC antibiotic tomorrow Seems to have fluid overload With cumulative fluid balance of more than 3 L Was on torsemide at home regularly Received a dose of 20 mg of intravenous Lasix yesterday Has had adequate urine output with improvement of clinical symptoms Will give another dose of Lasix of 20 mg IV today Creatinine is going up and will monitor PRP Creatinine has gone up to 2.78-will not give any more Lasix today Advised to drink more fluid and monitor PRP tomorrow Creatinine has gone up to 3.0-likely has ATN with multiple myeloma Appreciate nephrology input and recommendation Possible bibasilar pneumonia Parainfluenza virus infection Procalcitonin is elevated Lactic acid has been normal We will continue with current antibiotic and await blood culture report Cultures have been negative so far-we will continue current antibiotic Chest x-ray showing bibasilar infiltrate-final report was negative for any infiltration We will continue Zosyn IV for now Plan to continued on Zosyn till tomorrow 07/28/2022 (2) Multiple myeloma: Plan: Has been getting chemotherapy every 3 to 4 weeks Will advised to drink about 1500 fluid daily Discussed with the oncologist Dr. 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: Plan: History of chronic systolic heart failure secondary to restrictive cardiomyopathy due to amyloidosis Has chronic pleural effusion likely secondary to CHF Minimal leg swelling Has fluid overload and will restart her diuretics Still has more than 3 L of positive balance We will hold off any Lasix today since creatinine went up to 3.0 (4) CKD (chronic kidney disease) stage 3, GFR 30-59 ml/min: Plan: Acute on chronic kidney disease Creatinine was noted to be elevated at 2.20 Will monitor BMP-creatinine is up at 2.66 Will monitor-kidney function is worsening with creatinine at 2.78 today Will hold Lasix for today but advised to drink more fluid Medications adjusted as per creatinine clearance with decreasing dose of gabapentin Kidney function is getting worse (5) Diabetes type 2, uncontrolled: Plan: Has been on sliding scale insulin coverage (6) Chronic diastolic CHF (congestive heart failure): Plan: Received cautious amount of intravenous fluid to correct hypotension and ARSENIO Has bilateral pleural effusion with edema IV fluid has been stopped (7) Paroxysmal atrial fibrillation: Plan: Rate is controlled Mild elevation of troponin Doubt any ACS-rate is controlled high good afternoon good afternoon good afternoon Plan DVT prophylaxis On Eliquis CODE STATUS Full Discussed with the We will transfer the patient to PCU-medical telemetry unit Admission and Anticipated Discharge Date Admission Date: July 24, 2022 Subjective 07/24/2022 The patient was seen and examined in ICU He has been feeling much better but remains extremely weak and has been complaining of diarrhea without any abdominal pain, nausea and or vomiting Did not have any fever, cough or shortness of breath prior to chemotherapy yesterday morning Symptoms started in the evening with fever and weakness and was brought in to the hospital 07/25/2022 The patient was seen and examined in ICU in presence of the family member He has been complaining of some shortness of breath at rest He feels bloated Denies any abdominal pain, nausea and or vomiting 07/26/2022 The patient was seen and examined in ICU in presence of the family member He has been feeling much better Remains generally weak but denies any other symptoms Feels sweaty but no fever and or chills 07/27/2022 The patient was seen and examined in Medical telemetry unit He has been feeling much better and denies any other significant symptoms His creatinine went up to 3.0 today Review of Systems Review of Systems: All systems reviewed and are unremarkable except as noted below Neurologic: Generally weak Physical Exam Physical Exam: Sitting at the edge of the bed without any apparent distress Constitutional: well developed, well nourished, + ill appearing and + obese Eyes: PERRL, conjunctivae normal, anicteric sclerae ENMT: external ear and nose normal, oropharynx normal Neck: trachea midline, no thyromegaly Respiratory: + respiratory distress (Minimal distress at rest); no labored breathing Auscultation: + diminished lung sounds (At the bases) and + crackles (Minimal crackles) Cardiovascular: Rate/Rhythm: regular rate and regular rhythm; not tachycardic Heart Sounds: normal S1, normal S2 and + murmur Extremities: + edema (1+ edema bilaterally more on the left than the right) Gastrointestinal (Abdomen): Inspection/Auscultation: + abdomen distended and normal bowel sounds Percussion/Palpation: abdomen soft; abdomen nontender Musculoskeletal: No acute arthritis involving any joint Neurologic: normal touch/pain/proprioception and moves all extremities; no focal motor deficits Psychiatric: A+Ox3, euthymic affect Lymphatic: no cervical or axillary lymphadenopathy Results & Data Results & Data ([facility]) Vital Signs (Past 12 Hours) Vital Signs Temp Pulse Pulse Pulse Resp BP Pulse Ox 07/27/22 12:08 37.3 C 68 20 128/80 98 07/27/22 09:45 07/27/22 07:00 60 07/27/22 09:00 07/27/22 08:15 36.5 C 62 70 22 128/94 98 07/27/22 02:45 36.5 C 67 16 130/90 97 Pulse Ox O2 Del Method O2 Del Method 07/27/22 12:08 Room Air 07/27/22 09:45 Room Air 07/27/22 07:00 07/27/22 09:00 98 Room Air 07/27/22 08:15 07/27/22 02:45 Room Air Laboratory Results Short CBC 07/27/22 Range/Units 05:35 WBC 8.92 (4.8-10.8) K/ul Hgb 12.9 L (14.0-18.0) g/dl Hct 38.5 L (40.1-51.0) % Plt Count 114 L (130-400) K/uL BMP 07/27/22 05:35 Sodium 135 L Potassium 3.8 Chloride 104 Carbon Dioxide 25 BUN 34 H Creatinine 3.07 H Glucose 112 H Calcium 8.6 Liver Function 07/27/22 Range/Units 05:35 Total Bilirubin 0.7 (0.2-1.0) mg/dl Direct Bilirubin 0.2 (0-0.2) mg/dl AST 12 L (13-39) U/L ALT 17 (7-52) U/L Alkaline Phosphatase 82 (34-104) U/L Albumin 3.1 L (3.4-5.0) gm/dl Medications Administered Current Inpatient Medications Acetaminophen (Acetaminophen 325 Mg Tab) 650 mg PO Q6H PRN PRN Reason: Pain Stop: 08/23/22 08:01 Last Admin: 07/27/22 10:30 Dose: 650 mg Acyclovir (Acyclovir 400 Mg Tab) 400 mg PO BID JOSE; Protocol Stop: 08/23/22 08:59 Last Admin: 07/27/22 08:42 Dose: 400 mg Albuterol (Albuterol Hfa 8 Gm Inhaler) 2 puffs INH Q4H PRN PRN Reason: Cough Stop: 08/23/22 06:38 Dapsone (Dapsone 25 Mg Tab) 25 mg PO DAILY JOSE Stop: 08/23/22 08:59 Last Admin: 07/27/22 08:41 Dose: 25 mg Dextrose (Dextrose 50% 50 Ml Syringe) 25 - 50 ml IV UD PRN; Protocol PRN Reason: Hypoglycemia Protocol Stop: 08/23/22 06:29 Dronedarone (Dronedarone Hcl 400 Mg Tab) 400 mg PO BID JOSE Stop: 08/23/22 08:59 Last Admin: 07/27/22 08:42 Dose: 400 mg Escitalopram Oxalate (Escitalopram Oxalate 10 Mg Tab) 10 mg PO QAM JOSE Stop: 08/23/22 08:59 Last Admin: 07/27/22 08:41 Dose: 10 mg Finasteride (Finasteride 5 Mg Tab) 5 mg PO DAILY JOSE Stop: 08/23/22 08:59 Last Admin: 07/27/22 08:41 Dose: 5 mg Folic Acid (Folic Acid 400 Mcg Tab) 400 mcg PO DAILY JOSE Stop: 08/23/22 08:59 Last Admin: 07/27/22 08:42 Dose: 400 mcg Gabapentin (Gabapentin 400 Mg Cap) 400 mg PO BID JOSE Stop: 08/25/22 20:59 Last Admin: 07/27/22 08:42 Dose: 400 mg Glucagon (Glucagon For Inj 1 Mg Vial) 1 mg IM UD PRN; Protocol PRN Reason: Hypoglycemia Protocol Stop: 08/23/22 06:29 Glucose (Glucose 40% Gel 15 Gm Tube) 15 - 30 gm PO UD PRN; Protocol PRN Reason: Hypoglycemia Protocol Stop: 08/23/22 06:29 Glucose (Glucose 10 Tab/Tube) 4 - 8 tab PO UD PRN; Protocol PRN Reason: Hypoglycemia Protocol Stop: 08/23/22 06:29 Heparin Sodium (Porcine) (Heparin 100 Unit/Ml 5ml Flush) 5 ml FLUSH PRN PRN PRN Reason: Flush Stop: 08/24/22 22:54 Last Admin: 07/26/22 19:05 Dose: 5 ml Piperacillin Sod/Tazobactam (Sod 3.375 gm/ Dextrose) 115 mls @ 28.75 mls/hr IV Q8H JOSE; Protocol Stop: 07/31/22 05:35 Last Admin: 07/27/22 11:56 Dose: 28.8 mls/hr Promethazine HCl 12.5 mg/ (Sodium Chloride) 50.5 mls @ 202 mls/hr IV Q6H PRN PRN Reason: Nausea And Vomiting Stop: 08/25/22 16:59 Last Infusion: 07/26/22 19:05 Dose: Infused Insulin Aspart (Insulin Aspart Per Unit) 0 units SC ACHS JOSE Stop: 08/23/22 07:29 Last Admin: 07/27/22 12:00 Dose: Not Given Midodrine (Midodrine Hcl 2.5 Mg Tab) 5 mg PO BID@0900,1400 [facility] Stop: 08/23/22 08:59 Last Admin: 07/27/22 13:54 Dose: 5 mg Miscellaneous (Carbohydrates For Hypoglycemia ) 15 - 30 gm PO UD PRN PRN Reason: Hypoglycemia Treatment Stop: 08/23/22 06:29 Miscellaneous (Tenofovir Disoproxil Fumarate - Order Awaiting Action) 1 each N/A QS [facility] Stop: 08/23/22 07:59 Last Admin: 07/27/22 09:44 Dose: Not Given Oxycodone HCl (Oxycodone Hcl Ir 5 Mg Tab (Immediate Release)) 5 mg PO Q6H PRN PRN Reason: Pain Stop: 08/07/22 06:38 Last Admin: 07/25/22 21:28 Dose: 5 mg Pantoprazole Sodium (Pantoprazole 40 Mg Tab) 40 mg PO DAILY [facility] Stop: 08/23/22 08:59 Last Admin: 07/27/22 08:41 Dose: 40 mg Trazodone HCl (Trazodone Hcl 50 Mg Tab) 50 mg PO HS PRN PRN Reason: Insomnia Stop: 08/23/22 06:38 Warfarin Sodium (Warfarin Sod 2.5 Mg Tab) 2.5 mg PO [id number]@1600 [facility] Stop: 08/24/22 15:59 Last Admin: 07/25/22 16:21 Dose: 2.5 mg Warfarin Sodium (Warfarin Sod 1.25 Mg Tab) 1.25 mg PO TUSA@16 [facility] Stop: 08/23/22 15:59 Last Admin: 07/24/22 17:16 Dose: 1.25 mg
[2022-07-27] MEDS ORDERED: LOPERAMIDE HCL 2 MG CAP PO PRN (15:28)
[2022-07-28] MEDS: PIPERACILLIN/TAZOBACTAM 3.375 GM in DEXTROSE 5% 100 ML IV SCH ×3 (04:02→20:14)
[2022-07-28] MEDS: PROMETHAZINE HCL 12.5 MG in SODIUM CHLORIDE 0.9% 50 ML IV PRN (05:07)
[2022-07-28 07:08] LABS: Hematocrit (blood only) 39.1 % (40.1-51.0); Hemoglobin 13.2 g/dl (14.0-18.0); White Blood Count 7.39 K/ul (4.8-10.8)
[2022-07-28 07:34] LABS: BUN Creatinine Ratio 11.4 (10-20); Calcium 8.7 mg/dl (8.5-10.1); Creatinine Clr Calc Pharmacy 33.4 ml/min; Est GFR (African American) 27.7 ml/min; Est GFR (Non-African American) 23.9 ml/min; Potassium 3.9 mmol/L (3.5-5.1)
[2022-07-28 07:37] LABS: Basophils # (auto) 0.04 K/uL (0-0.2); Basophils % (auto) 0.5 %; Echinocytes 3+; Eosinophils # (auto) 0.12 K/uL (0-0.50); Eosinophils % (auto) 1.6 %; Immature Granulocytes # (auto) 0.02 K/uL (0.00-0.02); Immature Granulocytes % (auto) 0.3 %; Lymphocytes # (auto) 0.15 K/uL (1.2-3.4); Mean Corpuscular Hgb Conc 33.8 g/dL (32.0-36.0); Mean Corpuscular Volume 97.8 fL (80.0-100.0); Mean Platelet Volume 11.5 fL (9.4-12.4); Monocytes # (auto) 0.95 K/uL (0.24-0.82); Monocytes % (auto) 12.9 %; Neutrophils # (auto) 6.11 K/uL (1.4-6.5); Neutrophils % (auto) 82.7 %; Platelet Count 133 K/uL (130-400); Polychromasia 1+; RDW Coefficient of Variation 13.9 % (11.5-14.5); RDW Standard Deviation 50.3 fL (36.4-46.3)
[2022-07-28] MEDS: MIDODRINE HCL 2.5 MG TAB PO SCH ×2 (08:05→14:44)
[2022-07-28] MEDS: DAPSONE 25 MG TAB PO SCH (08:06)
[2022-07-28] MEDS: FINASTERIDE 5 MG TAB PO SCH (08:06)
[2022-07-28] MEDS: FOLIC ACID 400 MCG TAB PO SCH (08:06)
[2022-07-28] MEDS: ESCITALOPRAM OXALATE 10 MG TAB PO SCH (08:06)
[2022-07-28] MEDS: PANTOprazole 40 MG TAB PO SCH (08:07)
[2022-07-28] MEDS: DRONEDARONE HCL 400 MG TAB PO SCH ×2 (08:07→20:15)
[2022-07-28] MEDS: GABAPENTIN 400 MG CAP PO SCH ×2 (08:07→20:15)
[2022-07-28] MEDS: ACYCLOVIR 400 MG TAB PO SCH ×2 (08:07→20:15)
[2022-07-28] MEDS: INSULIN ASPART PER UNIT SC SCH ×4 (08:17→20:36)
[2022-07-28 09:07] LABS: INR > 9.6 (0.9-1.1); Prothrombin Time > 90.0 Seconds (9.0-12.0)
[2022-07-28 10:24] LABS: Partial Thromboplastin Ratio 1.9; Prothrombin Time 89.6 Seconds (9.0-12.0)
[2022-07-28 10:28] LABS: Partial Thromboplastin Time 53.5 Seconds (21.0-31.0)
--- NOTE | 2022-07-28 10:31 | Nephrology Progress Note ---
Date of Service July 28, 2022 Assessment & Plan Admission and Anticipated Discharge Date Admission Date: July 24, 2022 Subjective S--no new issues. NO major SOB but does have edema. Urine Output seems low ?? PHYSICAL EXAMINATION: GENERAL: A middle-aged white male who is moderately built. He is awake, alert, oriented x3 and was able to give me a detailed account of his medical problem. HEENT: Mucous membrane is moist. NECK: Supple. No jugular venous distention. CHEST: Bilateral decreased breath sounds, occasional crackles. CARDIOVASCULAR: S1 and S2, irregular. Soft systolic murmur heard. ABDOMEN: Soft, nontender. EXTREMITIES: Show 1-2+ edema bilaterally. NEUROLOGIC: Awake, alert, oriented x 3, normal speech. Moving all 4 extremities. LABORATORY TEST AND IMAGING: Chest x-ray shows small bilateral effusion, cardiomegaly. No clear pulmonary edema. Abdominal ultrasound shows no hydronephrosis. There is some ascites. Creat down a bit today. ASSESSMENT AND PLAN: A 52-year-old male with a baseline CKD IIIB with congenital solitary functional kidney ( marked left renal atrophy) as well as multiple myeloma, including cardiac amyloidosis. Now admitted with sepsis with most likely primary source being pulmonary infection. He had severe hypotension at the time of presentation, which almost certainly caused ATN given that he is extremely susceptible to this because of his underlying conditions. 1. Acute renal failure: This is secondary to ATN in the setting of sepsis from pneumonia. He is fluid overloaded at this time. However, the main issue is to support the hemodynamic status. fortunately, his blood pressure and oxygen level at this time is quite good, so that will help with his renal recovery. It is concerning to see decreasing urine output for the last few days with worsening creatinine. At this rate, he cannot be without diuretics. Give lasix 40 mg iv x 1 today Results & Data ([facility]) Vital Signs (Past 12 Hours) Vital Signs Temp Pulse Pulse Resp BP Pulse Ox Pulse Ox 07/28/22 09:00 96 07/28/22 09:24 67 07/28/22 07:39 36.9 C 67 16 137/96 99 07/28/22 03:20 36.9 C 68 18 136/94 99 07/28/22 02:30 70 19 94 O2 Del Method O2 Flow Rate 07/28/22 09:00 07/28/22 09:24 07/28/22 07:39 CPAP 07/28/22 03:20 CPAP 07/28/22 02:30 2
[2022-07-28 10:32] LABS: INR 9.5 (0.9-1.1)
[2022-07-28] MEDS ORDERED: FUROSEMIDE 40 MG/4 ML VIAL IV ONE (11:11)
[2022-07-28] MEDS ORDERED: PHYTONADIONE 5 MG TAB PO STA (11:22)
--- NOTE | 2022-07-28 13:42 | Hospitalist Progress Note ---
Date of Service July 28, 2022 Assessment & Plan (1) Severe sepsis: Plan: Per Dr. Pierce's notes with addendum: (1) SEVERE SEPSIS WITH SEPTIC SHOCK History of lambda chain multiple myeloma with autologous stem cell transplant in 2014 and ongoing chemotherapy He has had chemo day before yesterday morning with daratumumab and carfilzomib After going home following chemo he felt sick with fever and chills, nausea vomiting and went to [facility] and found to have very low blood pressure and required Levophed administration Bibasilar pneumonia is a possibility and parainfluenza infection or even chemotherapy side effects Blood cultures have been taken and urine was negative for any infection Bio fire did show parainfluenza, patient does not have any symptoms Has been on intravenous Zosyn and azithromycin. Vancomycin has been discontinued Has been in ICU in [facility] Appreciate registered nurse midwife input and recommendation He is off the pressors since this morning and the blood pressure is holding up on the lower side at systolic 90s Remains stable and the blood pressure is maintaining without any more pressor resents Complains to have minimal shortness of breath at rest Clinically much better but complains to have some nausea No abdominal distention and/or pain No more fever and or chills-pancultures when negative except parainfluenza PCR was positive on and the chest x-ray does not show any infiltration as of 07/26/2022 Will DC antibiotic tomorrow Possible bibasilar pneumonia Parainfluenza virus infection Procalcitonin is elevated Lactic acid has been normal We will continue with current antibiotic and await blood culture report Cultures have been negative so far-we will continue current antibiotic Chest x-ray showing bibasilar infiltrate-final report was negative for any infiltration We will continue Zosyn IV for now Plan to continued on Zosyn till tomorrow 07/28/202207/28 Septic shock, likely secondary to parainfluenza virus infection, possible pneumonia Afebrile, blood pressure stable Ambulating with no problems in the room Blood cultures: Negative so far Last day of IV Zosyn today ACUTE KIDNEY INJURY ON CKD STAGE III Patient volume overloaded initially, received IV Lasix Creatinine increasing Today creatinine improved from 3, today 2.8 Nephrology service on board Lasix 40 mg IV ordered for today Usual torsemide on hold Continue to monitor kidney function (2) Multiple myeloma: Plan: Has been getting chemotherapy every 3 to 4 weeks Will advised to drink about 1500 fluid daily Discussed with the oncologist Dr. Rosalio Amaral and advised to have early appoin tment with caregiver seen Tamy Bardales The patient has a number and we discussed that with the patient (3) 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: Plan: History of chronic systolic heart failure secondary to restrictive cardiomyopathy due to amyloidosis Has chronic pleural effusion likely secondary to CHF Minimal leg swelling 07/28 Management of diuretics per above (4) CKD (chronic kidney disease) stage 3, GFR 30-59 ml/min: Plan: Acute on chronic kidney disease Management per above (5) Diabetes type 2, uncontrolled: Plan: Has been on sliding scale insulin coverage (6) Chronic diastolic CHF (congestive heart failure): Plan: Received cautious amount of intravenous fluid to correct hypotension and ARSENIO Has bilateral pleural effusion with edema Management of diuretics per above (7) Paroxysmal atrial fibrillation: Plan: Rate is controlled Mild elevation of troponin, ACS ruled out SUPRATHERAPEUTIC INR No signs of bleeding INR more than 9 (checked twice this morning) Likely from IV antibiotics, acute kidney injury Vitamin K 10 mg p.o. given Repeat INR this afternoon and tomorrow morning Plan Coumadin held in light of INR greater than 9 CODE STATUS Full Disposition PT and OT evaluation pending Lives at home with family Admission and Anticipated Discharge Date Admission Date: July 24, 2022 Subjective Follow-up for septic shock, pneumonia, multiple myeloma on chemo, acute kidney injury, etc. Seen resting in bed, sitting up, comfortable States he feels better overall Denies cough, shortness of breath, chest pain, fevers or chills No abdominal pain, nausea or vomiting or problems with urination or bowel movement Ambulating in the room with no problems No other symptom Review of Systems Review of Systems: all noted and negative except for above Physical Exam Physical Exam: General- oriented x 3, not in distress, speaks in sentences with no effort or accessory muscle use Eyes- anicteric Neck- no JVD Lungs- clear breath sounds bilaterally, no rales/wheezes Heart- normal rate, regular rhythm; no murmurs Abdomen- normal bowel sounds, nondistended, soft, no tenderness Extremities-mild lower extremity edema, no calf tenderness Neuro- alert, oriented x 3; no gross focal neurologic deficits Skin- warm & dry Results & Data Results & Data ([facility]) Vital Signs (Past 12 Hours) Vital Signs Temp Pulse Pulse Resp BP Pulse Ox Pulse Ox 07/28/22 11:09 36.7 C 68 18 137/94 99 07/28/22 09:00 96 07/28/22 09:24 67 07/28/22 07:39 36.9 C 67 16 137/96 99 07/28/22 03:20 36.9 C 68 18 136/94 99 07/28/22 02:30 70 19 94 O2 Del Method O2 Flow Rate 07/28/22 11:09 Room Air 07/28/22 09:00 07/28/22 09:24 07/28/22 07:39 CPAP 07/28/22 03:20 CPAP 07/28/22 02:30 2 all noted and reviewed including below
[2022-07-28 17:14] LABS: Prothrombin Time 75.1 Seconds (9.0-12.0)
[2022-07-28 17:19] LABS: INR 7.9 (0.9-1.1)
[2022-07-29] MEDS: ACETAMINOPHEN 325 MG TAB PO PRN (06:02)
[2022-07-29 06:32] LABS: INR 1.9 (0.9-1.1); Prothrombin Time 19.5 Seconds (9.0-12.0)
[2022-07-29 06:50] LABS: BUN Creatinine Ratio 11.4 (10-20); Calcium 8.8 mg/dl (8.5-10.1); Creatinine Clr Calc Pharmacy 34.4 ml/min; Est GFR (African American) 28.6 ml/min; Est GFR (Non-African American) 24.7 ml/min; Potassium 3.8 mmol/L (3.5-5.1)
[2022-07-29] MEDS: MIDODRINE HCL 2.5 MG TAB PO SCH ×2 (08:40→14:01)
[2022-07-29] MEDS: INSULIN ASPART PER UNIT SC SCH ×3 (09:21→18:10)
[2022-07-29] MEDS: ESCITALOPRAM OXALATE 10 MG TAB PO SCH (09:27)
[2022-07-29] MEDS: DRONEDARONE HCL 400 MG TAB PO SCH (09:27)
[2022-07-29] MEDS: FOLIC ACID 400 MCG TAB PO SCH (09:27)
[2022-07-29] MEDS: GABAPENTIN 400 MG CAP PO SCH (09:27)
[2022-07-29] MEDS: DAPSONE 25 MG TAB PO SCH (09:27)
[2022-07-29] MEDS: ACYCLOVIR 400 MG TAB PO SCH (09:27)
[2022-07-29] MEDS: FINASTERIDE 5 MG TAB PO SCH (09:27)
[2022-07-29] MEDS: PANTOprazole 40 MG TAB PO SCH (09:27)
--- NOTE | 2022-07-29 11:01 | Nephrology Progress Note ---
Date of Service July 29, 2022 Assessment & Plan Admission and Anticipated Discharge Date Admission Date: July 24, 2022 Subjective Subjective S--no new issues. NO major SOB but does have edema. Urine Output much higher at 2950 yesterday after lasix 40. PHYSICAL EXAMINATION: GENERAL: A middle-aged white male who is moderately built. He is awake, alert, oriented x3 and was able to give me a detailed account of his medical problem. HEENT: Mucous membrane is moist. NECK: Supple. No jugular venous distention. CHEST: Bilateral decreased breath sounds, occasional crackles. CARDIOVASCULAR: S1 and S2, irregular. Soft systolic murmur heard. ABDOMEN: Soft, nontender. EXTREMITIES: Show Trace edema bilaterally. NEUROLOGIC: Awake, alert, oriented x 3, normal speech. Moving all 4 extremities. LABORATORY TEST AND IMAGING: Chest x-ray shows small bilateral effusion, cardiomegaly. No clear pulmonary edema. Abdominal ultrasound shows no hydronephrosis. There is some ascites. Creat down a bit today. ASSESSMENT AND PLAN: A 52-year-old male with a baseline CKD IIIB with congenital solitary functional kidney ( marked left renal atrophy) as well as multiple myeloma, including cardiac amyloidosis. Now admitted with sepsis with most likely primary source being pulmonary infection. He had severe hypotension at the time of presentation, which almost certainly caused ATN given that he is extremely susceptible to this because of his underlying conditions. 1. Acute renal failure:This is secondary to ATN in the setting of sepsis from pneumonia. He is fluid overloaded at this time. However, the main issue is to support the hemodynamic status. fortunately, his blood pressure and oxygen level at this time is quite good, so that will help with his renal recovery. Big increase in urine yesterday after iv lasix. restart demadex 20 daily from now. Results & Data ([facility]) Vital Signs (Past 12 Hours) Vital Signs Temp Pulse Pulse Resp BP BP Pulse Ox 07/29/22 08:00 69 07/29/22 07:41 36.8 C 16 135/90 95 07/29/22 06:29 37.0 C 71 18 154/104 H 148/104 H 95 07/29/22 03:29 37.0 C 69 18 132/87 95 07/29/22 03:10 68 07/29/22 02:28 70 21 96 07/28/22 23:27 75 18 95 O2 Del Method O2 Flow Rate 07/29/22 08:00 07/29/22 07:41 Room Air 07/29/22 06:29 Room Air 07/29/22 03:29 CPAP 07/29/22 03:10 07/29/22 02:28 2 07/28/22 23:27 2
[2022-07-29] MEDS ORDERED: TORSEMIDE 20 MG TAB PO SCH (11:15)
--- NOTE | 2022-07-29 15:02 | Hospitalist Progress Note ---
Date of Service July 29, 2022 Assessment & Plan (1) Severe sepsis: Plan: (1) SEVERE SEPSIS WITH SEPTIC SHOCK History of lambda chain multiple myeloma with autologous stem cell transplant in 2015 and ongoing chemotherapy He has had chemo day before yesterday morning with daratumumab and carfilzomib After going home following chemo he felt sick with fever and chills, nausea vomiting and went to [facility] and found to have very low blood pressure and required Levophed administration Bibasilar pneumonia is a possibility and parainfluenza infection or even chemotherapy side effects Blood cultures have been taken and urine was negative for any infection Bio fire did show parainfluenza, patient does not have any symptoms Has been on intravenous Zosyn and azithromycin. Vancomycin has been discontinued Has been in ICU in [facility] Appreciate waiter/waitress head input and recommendation He is off the pressors since this morning and the blood pressure is holding up on the lower side at systolic 90s Remains stable and the blood pressure is maintaining without any more pressor resents Complains to have minimal shortness of breath at rest Clinically much better but complains to have some nausea No abdominal distention and/or pain No more fever and or chills-pancultures when negative except parainfluenza PCR was positive on and the chest x-ray does not show any infiltration as of 07/26/2022 Will DC antibiotic tomorrow Possible bibasilar pneumonia Parainfluenza virus infection Procalcitonin is elevated Lactic acid has been normal We will continue with current antibiotic and await blood culture report Cultures have been negative so far-we will continue current antibiotic Chest x-ray showing bibasilar infiltrate-final report was negative for any infiltration We will continue Zosyn IV for now Plan to continued on Zosyn till tomorrow 07/28/202207/29 Septic shock, likely secondary to parainfluenza virus infection, possible pneumonia Afebrile, blood pressure stable Ambulating with no problems in the room Blood cultures: Negative Last day of IV Zosyn yesterday ACUTE KIDNEY INJURY ON CKD STAGE III Patient volume overloaded initially, received IV Lasix Creatinine increasing creatinine improved from 3, today 2.8 Nephrology service on board Lasix 40 mg IV ordered--> transition to usual Torsemide 40mg daily per Nephro repeat PRP on ff up with PCP (2) Multiple myeloma: Plan: Has been getting chemotherapy every 3 to 4 weeks Will advised to drink about 1500 fluid daily Discussed with the oncologist Dr. 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: Plan: History of chronic systolic heart failure secondary to restrictive cardiomyopathy due to amyloidosis Has chronic pleural effusion likely secondary to CHF Minimal leg swelling 07/29 Management of diuretics per above (4) CKD (chronic kidney disease) stage 3, GFR 30-59 ml/min: Plan: Acute on chronic kidney disease Management per above (5) Diabetes type 2, uncontrolled: Plan: Has been on sliding scale insulin coverage (6) Chronic diastolic CHF (congestive heart failure): Plan: Received cautious amount of intravenous fluid to correct hypotension and ARSENIO Has bilateral pleural effusion with edema Management of diuretics per above (7) Paroxysmal atrial fibrillation: Plan: Rate is controlled Mild elevation of troponin, ACS ruled out SUPRATHERAPEUTIC INR No signs of bleeding INR more than 9 (checked twice this morning) Likely from IV antibiotics, acute kidney injury Vitamin K 10 mg p.o. given 07/29 INR 1.9 resume coumadin as 2.5mg and 1.25mg alternate repeat INR Tuesday Plan coumadin CODE STATUS Full Disposition PT and OT evaluation pending Lives at home with family Admission and Anticipated Discharge Date Admission Date: July 24, 2022 Subjective ff up for septic shock, etc seen resting in bed, sitting up states he continues to feel better daily less weak no fever/chills, cough, dyspnea, abdominal pain, problems with urination or BM no other symptoms Review of Systems Review of Systems: all noted and negative except for above Physical Exam Physical Exam: General- oriented x 3, not in distress, speaks in sentences with no effort or accessory muscle use Eyes- anicteric Neck- no JVD Lungs- clear breath sounds bilaterally, no rales/wheezes Heart- normal rate, regular rhythm; no murmurs Abdomen- normal bowel sounds, nondistended, soft, nontender Extremities- trace pretibial edema, no calf tenderness Neuro- alert, oriented x 3; no gross focal neurologic deficits Skin- warm & dry Results & Data Results & Data ([facility]) Vital Signs (Past 12 Hours) Vital Signs Temp Pulse Pulse Resp BP BP Pulse Ox 07/29/22 11:31 36.4 C L 63 19 123/94 97 11/17/22 08:00 07/29/22 08:00 69 07/29/22 07:41 36.8 C 16 135/90 95 07/29/22 06:29 37.0 C 71 18 154/104 H 148/104 H 95 07/29/22 03:29 37.0 C 69 18 132/87 95 07/29/22 03:10 68 O2 Del Method 07/29/22 11:31 CPAP 07/29/22 08:00 CPAP 07/29/22 08:00 07/29/22 07:41 Room Air 07/29/22 06:29 Room Air 07/29/22 03:29 CPAP 07/29/22 03:10 all noted and reviewed including below
[2022-07-29] MEDS ORDERED: WARFARIN SOD 2.5 MG TAB PO SCH (16:00)
--- NOTE | 2022-07-29 17:34 | Discharge Summary ---
Discharge Summary Date of Service July 29, 2022 Notes For Next Care Provider Medications changes per below. Advised to hold Tenofovir and Chemo until renal function improves, and ff up with Oncologist. Please repeat BMP on PCP ff up visit next week. Medication Changes From Visit Coumadin 2.5mg tomorrow Tuesday, then 1.25mg Sat and Sun, until further advice by [facility] Clinic on Tuesday08/02/22. Decrease Gabapentin to 400 mg twice a day. Decrease Midodrine to 2.5mg twice a day. Hold Midodrine if blood pressure (top number) is greater than 100. Torsemide 40mg and 20mg alternating daily. Admission HPI Per Admitting Provider HISTORY OF PRESENT ILLNESS: This is a 52-year-old male with past medical history significant for type 2 diabetes, chronic kidney disease stage III, history of hyperlipidemia, obstructive sleep apnea, paroxysmal atrial fibrillation, cardiac amyloidosis, chronic diastolic CHF, chronic systolic CHF, restrictive cardiomyopathy,nonocclusive coronary artery disease, congenital solitary right kidney, BPH, lumbosacral disk degeneration, peripheral neuropathic pain, history of multiple myeloma, lambda light chain myeloma, amylo idosis, immunosuppressive status, anxiety, statin intolerance, who was transferred from [facility] for severe sepsis. The patient is getting chemo every week for 3 weeks and 1 week off. Yes[facility], [facility] After going home, he was feeling chills, shaky, not feeling well and has had a temperature spike, seemed confused and had nausea and vomiting.. He went to [facility] He was given antibiotics, for pneumonia and found to have pleural effusions. When asked for admission, patient wanted to come to [facility] because of his doctors here.Then later patient became hypotensive even after giving sepsis protocol fluids, blood pressure was still low, so he was started on Levophed and patient's blood pressure is stable on Levophed and was transferred here. Currently, the patient is alert and oriented. Denies any headache or dizziness. No blurred visions, no cough, no sore throat. Denies any chest pain. He says he cannot take deep breaths for last 2 days. No abdominal pain. No blood in stools or black stools. Normal micturition. He is using finasteride for his BPH, some times have difficult micturition. Denies any blood in the urine. He has some swelling in the legs, but he said it is much better. He is taking torsemide 20 mg 1 day and 40 mg the other day, but last week he took an extra dose to bring the swelling down, and he also said because of leg swellings his dexamethasone during the chemo was reduced from 20 mg to 8 mg yesterday. Admission Exam Per Admitting Provider GENERAL: The patient is of moderate built, not in acute distress. VITAL SIGNS: As per outside hospital T-max was 38.8, heart rate 88, respiratory rate 22, blood pressure 125/72, oxygen 93%. HEENT: Pupils equal, round and reactive to light. Oral mucosa moist. NECK: No JVD. No neck masses. CARDIOVASCULAR: S1 and S2 heard. Regular rate and rhythm. No murmur, no gallop. RESPIRATORY SYSTEM: Normal AP diameter. No accessory muscle use. No wheezing, no crackles. ABDOMEN: Soft, bowel sounds present, nontender, no distention. CENTRAL NERVOUS SYSTEM: Alert and oriented. No facial droop. Speech is clear. Insight is okay. Obeys simple commands. Moves extremities. EXTREMITIES: Mild pedal edema present, no erythema seen. Principal Dx & Hospital Course #1 = Principal Diagnosis (1) Severe sepsis: (1) SEVERE SEPSIS WITH SEPTIC SHOCK History of lambda chain multiple myeloma with autologous stem cell transplant in 2014 and ongoing chemotherapy He has had chemo day before yesterday morning with daratumumab and carfilzomib After going home following chemo he felt sick with fever and chills, nausea vomiting and went to [facility] and found to have very low blood pressure and required Levophed administration Bibasilar pneumonia is a possibility and parainfluenza infection or even chemotherapy side effects Blood cultures have been taken and urine was negative for any infection Bio fire did show parainfluenza, patient does not have any symptoms Required vasopressors, IV Zosyn, azithromycin Transfer to medical floor Possible bibasilar pneumonia Parainfluenza virus infection Procalcitonin is elevated Lactic acid has been normal Cultures negative Chest x-ray showing bibasilar infiltrate-final report was negative for any infiltration Patient completed 5-day course of IV Zosyn 07/29 Septic shock, likely secondary to parainfluenza virus infection, possible pneumonia Afebrile, blood pressure stable Ambulating with no problems in the room Blood cultures: Negative ACUTE KIDNEY INJURY ON CKD STAGE III Patient volume overloaded initially, received IV Lasix Creatinine trended up creatinine improved from 3, today 2.8 Nephrology service on board Lasix 40 mg IV ordered--> transition to usual Torsemide 40mg and 20 mg daily alternating as per Nephro repeat BMP on ff up with PCP next week Midodrine decreased to 2.5 mg p.o. twice daily With holding parameters, possible DCblood pressure stable while admitted Gabapentin dose decreased to 300 mg p.o. twice daily (2) Multiple myeloma: Plan: Has been getting chemotherapy every 3 to 4 weeks Discussed with the oncologist Dr. 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: Plan: History of chronic systolic heart failure secondary to restrictive cardiomyopathy due to amyloidosis Has chronic pleural effusion likely secondary to CHF Minimal leg swelling 07/29 Usual torsemide resumed Monitor renal function closely (4) CKD (chronic kidney disease) stage 3, GFR 30-59 ml/min: Plan: Acute on chronic kidney disease Management per above (5) Diabetes type 2, uncontrolled: Plan: Has been on sliding scale insulin coverage (6) Chronic diastolic CHF (congestive heart failure): Plan: Received cautious amount of intravenous fluid to correct hypotension and ARSENIO Has bilateral pleural effusion with edema Management of diuretics per above (7) Paroxysmal atrial fibrillation: Plan: Rate is controlled Mild elevation of troponin, ACS ruled out SUPRATHERAPEUTIC INR No signs of bleeding INR more than 9 (checked twice this morning) Likely from IV antibiotics, acute kidney injury Vitamin K 10 mg p.o. given 07/29 INR 1.9 Coumadin 2.5 mg until tomorrow July 30 then 1.25 mg over the weekend until INR check on August 02 CODE STATUS Full Disposition Discharge to home Follow-up with PCP in 1 week Follow-up with oncologist in 1 week Updated Medication List Medication Instructions Recorded Confirmed Type acyclovir 400 mg tablet 400 mg PO BID 05/16/18 06/08/22 History albuterol sulfate 90 mcg/actuation 2 puff inhalation Q4H PRN Cough 05/16/18 06/08/22 History aerosol inhaler (Ventolin HFA) dronedarone 400 mg tablet (Multaq) 400 mg PO BID 05/16/18 06/08/22 History escitalopram oxalate 10 mg tablet 10 mg PO QAM 05/16/18 06/08/22 History (Lexapro) pantoprazole 20 mg tablet,delayed 20 mg PO DAILY 09/02/20 06/08/22 History release potassium chloride 10 mEq 10 meq PO Q OTHER DAY 09/02/20 06/08/22 History tablet,extended release torsemide 20 mg tablet 40 mg PO DAILY 09/02/20 06/08/22 History dapsone 25 mg tablet 25 mg PO DAILY 02/26/22 06/08/22 History evolocumab 140 mg/mL subcutaneous 140 mg subcut UD 02/26/22 06/08/22 History pen injector (Sherry Doran) folic acid 400 mcg tablet 400 mcg PO DAILY 02/26/22 06/08/22 History gabapentin 400 mg capsule 800 mg PO BID 02/26/22 06/08/22 History midodrine 5 mg tablet 5 mg PO BID 02/26/22 06/08/22 History semaglutide 0.25 mg or 0.5 mg (2 0.5 mg subcut WK 02/26/22 06/08/22 History mg/1.5 mL) subcutaneous pen injector (Ozempic) tenofovir disoproxil fumarate 300 300 mg PO QAM 02/26/22 06/08/22 History mg tablet warfarin 2.5 mg tablet See Rx Instructions .Route .COMPLEX 02/26/22 06/08/22 History acetaminophen 325 mg tablet 650 mg PO Q6H PRN fever or pain 02/27/22 06/08/22 Rx #30 tabs Ivig 1 dose IV DIRECTED 06/08/22 06/08/22 History carfilzomib 10 mg intravenous 10 mg IV DIRECTED CHEMO 06/08/22 06/08/22 History solution daratumumab 20 mg/mL intravenous 20 mg IV DIRECTED 06/08/22 06/08/22 History solution finasteride 5 mg tablet 5 mg PO DAILY 07/24/22 07/24/22 History oxycodone 5 mg tablet 5 mg PO Q6H PRN Pain 07/24/22 07/24/22 History trazodone 50 mg tablet 50 mg PO HS PRN Insomnia 07/24/22 07/24/22 History Hospital Stay Data Consultations 07/24/22 05:36 Consult Clerical Stock Inspector Routine 07/27/22 08:22 Consult Nephrology Routine Diagnostic Imagining Performed 07/24/22 05:36 CT chest diagnostic wo con Urgent 07/24/22 07:07 US abdomen complete Routine Pending Results Patient Have Any Pending Studies at Discharge: Yes Discharge Instructions Given to Patient (Per Discharging Provider) PLEASE REFER TO YOUR NEW MEDICATION LIST AND FOLLOW INSTRUCTIONS CAREFULLY. YOUR NEW MEDICATIONS INCLUDE: Coumadin 2.5mg tomorrow Tuesday, then 1.25mg Sat and Sun, until further advice by [facility] Clinic on Tuesday08/02/22. Decrease Gabapentin to 400 mg twice a day. Decrease Midodrine to 2.5mg twice a day. Hold Midodrine if blood pressure (top number) is greater than 100. Torsemide 40mg and 20mg alternating daily. PLEASE CALL YOUR PRIMARY CARE PHYSICIAN OR RETURN TO THE ER IF WITH WORSENING OF SYMPTOMS, INCLUDING fever/chills, cough, shortness of breath, weakness, nausea/vomiting, diarrhea, etc. FOLLOW UP WITH PRIMARY CARE PHYSICIAN in 1 WEEK. FOLLOW UP WITH ONCOLOGIST SCHEDULED. Total Time Total Time Spent Total Time Spent (In Minutes): >30 MINUTES
== END 2022-07-29 18:43 | disposition home or self-care (01) | DRG 871 ==
LOC: 1E 07-24 05:30 → SUATTDRO 07-24 05:30 → 2W 07-26 14:25

== ENCOUNTER 2023-08-08 21:37 | Inpatient (IN) ==
[2023-08-08] MEDS ORDERED: SODIUM CHLORIDE 0.9% 1,000 ML IV STA (21:54)
[2023-08-08] MEDS ORDERED: SODIUM CHLORIDE 0.9% 2,000 ML IV ONE (22:30)
--- NOTE | 2023-08-08 22:33 | Emergency Department Note ---
Impression & Plan Salmonella enteritis, Hypomagnesemia, Hypocalcemia, Hypokalemia, Elevated lactic acid level, Acute dehydration, Diarrhea ED Provider Note HISTORY OF PRESENT ILLNESS: Patient is a 53-year-old male presenting with explosive diarrhea. Patient reports that he was seen earlier today and diagnosed with Salmonella enteritis. He states that he was discharged home and he has been unable to control his profuse and explosive diarrheal episodes. states that he has been on the toilet for most of the day and has been unable to get off. He has had fevers intermittently today. Last antipyretic was around 11 AM. Patient denies any abdominal pain. He denies any nausea or vomiting. Reports feeling generally unwell and too weak to get around. He took a dose of Levaquin earlier. Patient states he has had diarrhea for the last 3 days. He also developed a fever starting yesterday. ROS: as above PHYSICAL EXAM: Constitutional: Patient appears in no acute distress. Ill-appearing HENT: Head: Normocephalic and atraumatic. Eyes: EOMI, PERRL Mouth/Throat: Mucous membranes dry. Neck: Trachea midline. Neck supple. Cardiovascular: RRR, No murmurs, rubs or gallops. Intact distal pulses. Pulmonary/Chest: No respiratory distress. Breath sounds clear and equal bilaterally. No wheezes or rales Abdominal: Abdomen soft, no tenderness, rebound or guarding. Musculoskeletal: No edema, tenderness or deformity noted. Skin: Warm and dry. No rash, erythema, pallor or cyanosis Psychiatric: Appropriate mood and affect for situation. Neurological: Alert and keenly responsive. CN II-XII grossly intact, moving all extremities equally and fully. MDM: - Vitals signs showed hypotension. - History obtained via patient and patient's .. Patient presents with persistent diarrhea. Patient reports that he has had diarrhea for the last 3 days and developed a fever starting yesterday. He was evaluated in the emergency department earlier this morning and diagnosed with Salmonella enteritis. They were offered admission but decided to go home. However, since being home he has been having persistent liquid stool and has been too weak to get up and get around. - Chronic conditions affecting care: multiple myeloma (on weekly chemotherapy); CKD; Afib (on Coumadin); DM-2; CAD; DEBBY; HLD - Differential diagnoses include, but are not limited to: Viral syndrome; sepsis; UTI; bacterial enteritis; colitis; diverticulitis - Order placed for continuous cardiac monitoring. At this time, monitor showed rate of 82 bpm with normal sinus rhythm, per my interpretation. - External medical records reviewed. GI note from 05/06/2023 reviewed. Patient followed with gastroenterology for pancreatic cyst. - EKG reviewed by myself showed normal sinus rhythm. Rate 82 bpm. Prolonged QT at 460. - Laboratory workup interpreted by myself showed normal WBC; hypokalemia (K 3.0); CKD; elevated anion gap (12 - likely from diarrhea); elevated lactate (3.30); hypocalcemia (Ca 6.8); hypomagnesemia (Mg 1.6) - 1g IV calcium and 1g IV magnesium ordered for electrolyte replacement - Patient given 2L NS in ER. Blood pressures improved with fluid resuscitation. - Reviewed patient's workup from earlier presentation to the ER. His stool studies were positive for salmonella. Patient reports he took a dose of levaquin earlier today. - Discussion was had with customer care team coach about patient's case and need for admission - Hospitalist consulted for admission - Patient admitted to [facility] Hospitalist service for further evaluation and management. ASSESSMENT AND PLAN: Diagnosis: Salmonella enteritis; acute dehydration; hypocalcemia; hypomagnesemia; elevated lactic acid; hypokalemia; diarrhea Plan: Admit Past Med/Surg History Medical History CAD (coronary artery disease) Nonobstructive GERD (gastroesophageal reflux disease) Atrial fibrillation Follows with [facility]/Tim Ruiz PAC Low back problem BPH (benign prostatic hyperplasia) CKD (chronic kidney disease) Follows with [facility]/Dr. 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 Mother No problems noted. Other Adopted Social History Smoking Status: Current every day smoker Tobacco Type: Cigarettes Second Hand Exposure: Yes (as a child); Do You Dip or Chew Tobacco: Yes (1 pouch per day); Hx Alcohol Use: No Hx Substance Use: No Preferred Language: Grenadian Communication Ability: Effective Conference Director Required: No Beliefs That Will Affect Care: None marital status: marital status details: twice - 3 children in total between the 2 marriages Current Living Situation: Spouse and Family Current Living Situation Comment: lives in [place] current occupational status: disabled current occupation: previously worked at [employer] Feels Safe at Home: Yes Assistive Devices: Cane, Contacts, CPAP, Glasses and Oxygen - at Night Allergies Allergies Allergy/AdvReac Type Severity Reaction Status Date / Time NSAIDS (Non-Steroidal AdvReac Advised by Verified 05/06/23 06:17 Anti-Inflamma nephrology to avoid d/t CKD [id number] Reductase AdvReac Muscle Pain Verified 05/06/23 06:17 Inhibitor Home Meds Home Medications Medication Instructions Recorded Confirmed acyclovir 400 mg tablet 400 mg PO QPM 05/16/18 05/06/23 albuterol sulfate 90 mcg/actuation 2 puff inhalation Q4H PRN Cough 05/16/18 05/06/23 aerosol inhaler (Ventolin HFA) escitalopram oxalate 10 mg tablet 10 mg PO QAM 05/16/18 05/06/23 (Lexapro) pantoprazole 20 mg tablet,delayed 20 mg PO QAM 09/02/20 05/06/23 release (Protonix) potassium chloride 10 mEq 10 meq PO QAM 09/02/20 05/06/23 tablet,extended release dapsone 25 mg tablet 25 mg PO QAM 02/26/22 05/06/23 evolocumab 140 mg/mL subcutaneous 140 mg subcut UD 02/26/22 05/06/23 pen injector (Repatha SureClick) folic acid 400 mcg tablet 400 mcg PO QPM 02/26/22 05/06/23 semaglutide 0.25 mg or 0.5 mg (2 0.5 mg subcut WK 02/26/22 05/06/23 mg/1.5 mL) subcutaneous pen injector (Ozempic) Ivig 1 dose IV DIRECTED 06/08/22 05/06/23 finasteride 5 mg tablet 5 mg PO QAM 07/24/22 05/06/23 oxycodone 5 mg tablet 5 mg PO Q6H PRN Pain 07/24/22 05/06/23 trazodone 50 mg tablet 50 mg PO HS PRN Insomnia 07/24/22 05/06/23 amiodarone 200 mg tablet 200 mg PO QAM 05/02/23 05/06/23 dexamethasone 4 mg tablet 16 mg PO WK 05/02/23 05/06/23 duloxetine 20 mg capsule,delayed 40 mg PO QAM 05/02/23 05/06/23 release sprinkle icosapent ethyl 1 gram capsule 2 g PO BID 05/02/23 05/06/23 (Vascepa) immun glob G 4 gram/20 mL(20 30 ml subcut WK 05/02/23 05/06/23 %)-prol-IgA 0-50 mcg/mL subcutaneous soln (Hizentra) levothyroxine 50 mcg tablet 50 mcg PO QAM 05/02/23 05/06/23 torsemide 20 mg tablet 40 mg PO QAM 05/02/23 05/06/23 metformin 500 mg tablet 500 mg PO DAILY 05/06/23 05/06/23 Previous Rx's Medication Instructions Recorded acetaminophen 325 mg tablet 650 mg (2 x 325 mg) PO Q6H PRN 02/27/22 fever or pain #30 tabs midodrine 5 mg tablet 2.5 mg (1/2 x 5 mg) PO BID #30 tabs 07/29/22 warfarin 2.5 mg tablet 2.5 mg PO DAILY #30 tabs 07/29/22 levofloxacin 750 mg tablet 750 mg PO Q48H #4 tabs 08/08/23 ondansetron 4 mg disintegrating 4 mg PO Q6H PRN nausea and 08/08/23 tablet vomiting #20 tabs Results & Data (ED) Vital Signs Vital Signs - 24 hr 08/08/23 21:47 08/08/23 21:54 08/08/23 22:32 Temperature 36.4 C L Temperature Source Oral Pulse Rate 88 82 Pulse Rate from SpO2 Sensor 82 Respiratory Rate 19 18 Respiratory Effort / Characteristics Non-Labored Respiratory Depth Normal Respiratory Pattern Blood Pressure 84/48 L Blood Pressure Mean 60 Pulse Oximetry 97 95 94 Oxygen Delivery Method Room Air Room Air Sepsis Recent Fever Within 48 Hours No Sepsis New/Unexplained Change in Mental Status N/A Sepsis Action Taken by Nursing No Action Required 08/08/23 22:57 08/08/23 23:00 Temperature Temperature Source Pulse Rate 82 Pulse Rate from SpO2 Sensor 82 Respiratory Rate 18 20 Respiratory Effort / Characteristics Non-Labored Spontaneous Respiratory Depth Normal Respiratory Pattern Regular Blood Pressure 115/76 Blood Pressure Mean 80 Pulse Oximetry 95 95 Oxygen Delivery Method Room Air Room Air Sepsis Recent Fever Within 48 Hours Sepsis New/Unexplained Change in Mental Status Sepsis Action Taken by Nursing Laboratory Data 08/08/23 10:33 08/08/23 10:33 Lab Results 08/08/23 Range/Units 10:33 WBC 8.80 (4.8-10.8) K/ul RBC 3.97 L (4.70-6.10) M/uL Hgb 12.8 L (14.0-18.0) g/dl Hct 36.7 L (42.0-52.0) % MCV 92.4 (80.0-100.0) fL MCH 32.2 (25.0-34.0) pg MCHC 34.9 (32.0-36.0) g/dL RDW Std Deviation 50.4 H (36.4-46.3) fL RDW Coeff of Tobi 14.7 H (11.5-14.5) % Plt Count 198 (130-400) K/uL MPV 10.7 (9.4-12.4) fL Immature Gran % (Auto) 0.6 % Neut % (Auto) 94.5 % Lymph % (Auto) 0.8 % [place] % (Auto) 3.3 % Eos % (Auto) 0.3 % Baso % (Auto) 0.5 % Neut # (Auto) 8.32 H (1.40-6.50) K/uL Lymph # (Auto) 0.07 L (1.20-3.40) K/uL [place] # (Auto) 0.29 (0.11-0.59) K/uL Eos # (Auto) 0.03 (0.00-0.50) K/uL Baso # (Auto) 0.04 (0.00-0.20) K/uL Immature Gran # (Auto) 0.05 (0.01-0.20) K/uL Echinocytes 1+ Sodium 136 (136-145) mmol/L Potassium 3.0 L (3.5-5.1) mmol/L Chloride 108 H (98-107) mmol/L Carbon Dioxide 16 L (21-32) mmol/L Anion Gap 12 H (3-11) BUN 41 H (6-23) mg/dl Creatinine 1.74 H (0.6-1.4) mg/dl Est Cr Clr Drug Dosing 47.5 ml/min Est GFR ( Amer) 50.8 ml/min Est GFR (Non-Af Amer) 43.8 ml/min BUN/Creatinine Ratio 23.6 H (10-20) Glucose 112 H (70-99(Fasting)) mg/dl Lactate 3.3 H* (0.4-2.0) mmol/L Calcium 6.8 L (8.6-10.3) mg/dl Magnesium 1.6 L (1.7-2.4) mg/dl Total Bilirubin 0.6 (0.2-1.0) mg/dl AST 8 L (13-39) U/L ALT 12 (7-52) U/L Alkaline Phosphatase 85 (34-104) U/L Total Protein 5.3 L (6.0-8.3) gm/dl Albumin 3.1 L (3.4-5.0) gm/dl Globulin 2.2 L (2.5-4.0) gm/dl Albumin/Globulin Ratio 1.4 (0.9-2) Lipase 8 L (11-82) U/L Procalcitonin 0.67 H (0-0.5) ng/ml Administered Medications Sodium Chloride (Nss) 2,000 mls @ 999 mls/hr IV .Q2H1M ONE Stop: 08/09/23 00:30 Last Admin: 08/08/23 22:47 Dose: 999 mls/hr Documented By: MARCELLA Discontinued Medications Sodium Chloride (Nss) 1,000 mls @ 999 mls/hr IV .Q1H1M STA Stop: 08/08/23 22:54 Last Admin: 08/08/23 22:47 Dose: 999 mls/hr Documented By: MARCELLA Discharge Plan Visit Data Chief Complaint: Abdominal Pain Stated Complaint: BOWEL INFECTION,GETTING WORSE ED Provider: Dariana Quiroz Discharge Problem: Salmonella enteritis, Hypomagnesemia, Hypocalcemia, Hypokalemia, Elevated lactic acid level, Acute dehydration, Diarrhea Forms Stand Alone Forms: [facility] Prescriptions Prescriptions: No Action acyclovir 400 mg Tablet 400 mg PO QPM albuterol sulfate [Ventolin HFA] 90 mcg/actuation Hfa Aerosol Inhaler 2 puff INHALATION Q4H PRN (Reason: Cough) escitalopram oxalate [Lexapro] 10 mg Tablet 10 mg PO QAM potassium chloride 10 mEq Tablet Extended Release 10 meq PO QAM pantoprazole [Protonix] 20 mg Tablet,Delayed Release (Dr/Ec) 20 mg PO QAM folic acid 400 mcg tablet 400 mcg PO QPM dapsone 25 mg tablet 25 mg PO QAM Ozempic 0.25 mg or 0.5 mg(2 mg/1.5 mL) Pen Injector 0.5 mg SUBCUT WK Repatha SureClick 140 mg/mL pen injector 140 mg SUBCUT UD Rx Instructions: q14d acetaminophen 325 mg Tablet 650 mg PO Q6H PRN (Reason: fever or pain) Qty: 30 0RF Ivig 1 dose IV DIRECTED Rx Instructions: EVERY 4 WEEKS amiodarone 200 mg Tablet 200 mg PO QAM Hizentra 4 gram/20 mL (20 %) Solution 30 ml SUBCUT WK duloxetine 20 mg Capsule, Delayed Rel Sprinkle 40 mg PO QAM torsemide 20 mg tablet 40 mg PO QAM levothyroxine 50 mcg Tablet 50 mcg PO QAM dexamethasone 4 mg Tablet 16 mg PO WK icosapent ethyl [Vascepa] 1 gram Capsule 2 g PO BID metformin 500 mg Tablet 500 mg PO DAILY levofloxacin 750 mg tablet 750 mg PO Q48H Qty: 4 0RF ondansetron 4 mg tablet,disintegrating 4 mg PO Q6H PRN (Reason: nausea and vomiting) Qty: 20 0RF finasteride 5 mg tablet 5 mg PO QAM oxycodone 5 mg tablet 5 mg PO Q6H PRN (Reason: Pain) trazodone 50 mg tablet 50 mg PO HS PRN (Reason: Insomnia) midodrine 5 mg tablet 2.5 mg PO BID Qty: 30 0RF Rx Instructions: TAKES QAM, THEN EARLY AFTERNOON HOLD FOR BLOOD PRESSURE (TOP NUMBER) ABOVE 100 warfarin 2.5 mg tablet 2.5 mg PO DAILY Qty: 30 0RF Rx Instructions: TAKE 2.5MG 6 days a week, Tues due 1.25mg Referrals Referrals: Jaime Garcia MD [Primary Care Provider] -
[2023-08-08 23:16] LABS: Basophils # (auto) 0.04 K/uL (0.00-0.20); Basophils % (auto) 0.5 %; Echinocytes 1+; Eosinophils # (auto) 0.03 K/uL (0.00-0.50); Eosinophils % (auto) 0.3 %; Hematocrit (blood only) 36.7 % (42.0-52.0); Hemoglobin 12.8 g/dl (14.0-18.0); Immature Granulocytes # (auto) 0.05 K/uL (0.01-0.20); Immature Granulocytes % (auto) 0.6 %; Lymphocytes # (auto) 0.07 K/uL (1.20-3.40); Lymphocytes % (auto) 0.8 %; Mean Corpuscular Hemoglobin 32.2 pg (25.0-34.0); Mean Corpuscular Hgb Conc 34.9 g/dL (32.0-36.0); Mean Corpuscular Volume 92.4 fL (80.0-100.0); Mean Platelet Volume 10.7 fL (9.4-12.4); Monocytes # (auto) 0.29 K/uL (0.11-0.59); Monocytes % (auto) 3.3 %; Neutrophils # (auto) 8.32 K/uL (1.40-6.50); Neutrophils % (auto) 94.5 %; Platelet Count 198 K/uL (130-400); RDW Coefficient of Variation 14.7 % (11.5-14.5); RDW Standard Deviation 50.4 fL (36.4-46.3); Red Blood Count 3.97 M/uL (4.70-6.10)
[2023-08-08 23:29] LABS: Albumin Level 3.1 gm/dl (3.4-5.0); Bilirubin,Total 0.6 mg/dl (0.2-1.0); Calcium 6.8 mg/dl (8.6-10.3); Magnesium 1.6 mg/dl (1.7-2.4)
[2023-08-08 23:35] LABS: Albumin Globulin Ratio 1.4 (0.9-2); BUN Creatinine Ratio 23.6 (10-20); Creatinine Clr Calc Pharmacy 47.5 ml/min; Est GFR (African American) 50.8 ml/min; Est GFR (Non-African American) 43.8 ml/min; Globulin 2.2 gm/dl (2.5-4.0); Total Protein 5.3 gm/dl (6.0-8.3)
[2023-08-08] MEDS ORDERED: MAGNESIUM SULFATE / D5W 1 GM/100 ML BAG IV STA (23:50)
[2023-08-08] MEDS ORDERED: CALCIUM GLUCONATE 1,000 MG/60 ML BAG IV STA (23:50)
[2023-08-09] MEDS ORDERED: ACETAMINOPHEN 1,000 MG/100 ML VIAL IV STA (00:31)
--- OUTSIDE RECORDS SUMMARY | 2023-08-09 01:15 | External Medical Summary | Summary of Care ---
Author Name Unknown Organization [facility] Address [address] [place] [address] Phone [phone] Care Team Providers Care Wire Straightener Name Role Phone Jaime Garcia MD Primary Care Provide r Reason for Visit * Reason Onset Date Comments medication change 03/17/2023 Encounter Details Date Type Department Care Team Description 03/17/2023 Telephone Pharmacy [facility] [address] [place] [address] [facility] [address] [place] [address] medication change Allergies Active Allergy Reactions Severity Noted Date Comments Atorvastatin Muscle pain High 03/30/2019 Ezetimibe Muscle pain High 01/25/2020 documented as of this encounter (statuses as of 03/17/2023) Medications Medication Sig Dispensed Refills Start Date End Date Status NSS 0.9 % SOLN with daratumumab 400 MG/20ML SOLN 16 mg/kgIndications:e very 4 weeks Administer intravenously every 14 days. 0 Active CPAP every night at bedtime. 0 Active oxygen IN GAS Use 2 L/min(Oxygen) as directed at bedtime. 1 Each 0 11/11/2020 Active Fluticasone Propionate 50 MCG/ACT Nasal Suspension (Flonase)Indicatio ns:Nasal congestion Administer 2 Sprays into each nostril daily. 16 g 1 01/15/2021 Active Additional Information Patient not taking.Reported on 03/17/2023 Imiquimod 5 % External Cream (Aldara)Indication s:Anal condyloma Apply topically to affected area at bedtime. 3 times per week and wash off after 6-10 hours. Use up to 16 weeks Given by [facility] 12 Packet 3 01/19/2021 Active Additional Information Patient not taking.Reported on 02/28/2023 OneTouch Ultra Blue In Vitro Strip (Glucose Blood)Indications: Type 2 diabetes mellitus with hemoglobin A1c goal of less than 7.0% ([facility]) Use as directed daily. Test once daily DxE11.9 100 Strip 5 03/02/2021 Active LancetsIndications :Type 2 diabetes mellitus with hemoglobin A1c goal of less than 7.0% ([facility]) Test once daily DxE11.9. 100 Each 5 03/02/2021 Active Albuterol Sulfate HFA 108 (90 Base) MCG/ACT Inhalation Aerosol SolutionIndication s:Acute bronchitis, antibiotics not indicated Inhale 2 Puffs by mouth every 6 hours as needed for Cough or Shortness of Breath. 54 g 1 06/30/2021 Active Additional Information Patient not taking.Reported on 03/17/2023 Acyclovir 400 MG Oral Tablet (Zovirax)Indicatio ns:Lambda light chain myeloma (HCC) Take one tablet once daily 180 Tablet 3 12/14/2021 Active Dapsone 25 MG Oral TabletIndications: Multiple myeloma in relapse (HCC) Take by mouth 1 Tablet in the morning. 90 Tablet 1 02/22/2022 Active Finasteride 5 MG Oral Tablet (Proscar) Take by mouth 1 Tablet in the morning. 90 Tablet 3 06/30/2022 Active Torsemide 20 MG Oral Tablet (Demadex) Take 1 Tablet by mouth in the morning. 0 Active COVID-19 At Home Antigen Test In Vitro Kit DIRECTED 5 Kit 5 06/07/2022 3 Active Additional Information Patient not taking.Reported on 02/15/2023 Ondansetron HCl 8 MG Oral Tablet (Zofran)Indication s:Nausea Take 1 Tablet (8 mg) by mouth every 8 hours as needed for Nausea. 30 Tablet 3 08/26/2022 Active Additional Information Patient not taking.Reported on 03/17/2023 Prochlorperazine Maleate 10 MG Oral Tablet (Compazine) Take 1 Tablet by mouth every 6 hours as needed for Nausea. Take 1 tablet by mouth between 1st and 2nd Zofran doses and between the 2nd and 3rd Zofran doses. Do this when you need her not for the 1st 2 days and then as you need for nausea 28 Tablet 1 08/31/2022 Active Additional Information Patient not taking.Reported on 03/17/2023 Hizentra 4 GM/20ML Subcutaneous Solution (immune globulin human 20%) Patient is to subcutaneously infuse three four gram vials twice weekly for four weeks then 6 grams weekly. 480 mL 0 09/16/2022 Active Hizentra 2 GM/10ML Subcutaneous Solution (immune globulin human 20%) Patient is to subcutaneously inject one 2 gram vial plus one four gram vial for a total of 6 grams weekly after loading dose of 12 grams twice weekly x four weeks . 120 mL 12 09/16/2022 Active diphenhydrAMINE HCl 50 MG Oral Capsule (Benadryl) Take one 25 mg capsule by mouth one hour prior to Hizentra, 50 Capsule 2 09/16/2022 Active Acetaminophen 325 MG Oral Tablet (Tylenol) Take two 325 mg tablets by mouth one hour prior to Hizentra. 30 Tablet 3 09/16/2022 Active Famotidine 20 MG Oral Tablet Take 1 Tablet by mouth at bedtime. Take one one hour prior to weekly hizentra by mouth . 30 Tablet 3 09/16/2022 Active Tenofovir Alafenamide Fumarate 25 MG Oral Tablet (Vemlidy) Take 1 Tablet by mouth in the morning. 0 Active EpiPen 2-Konstantin 0.3 MG/0.3ML Injection Solution Auto-injector For a severe reaction: Inject in outer thigh following instructions on package and go to the Emergency room. 2 Each 3 10/05/2022 Active Dexamethasone 4 MG Oral Tablet (Decadron)Indicati ons:Multiple myeloma not having achieved remission (HCC) 5 tabs 2 times monthly 10 Tablet 5 10/25/2022 Active Additional Information Patient not taking.Reported on 03/17/2023 Evolocumab 140 MG/ML Subcutaneous Solution Auto-injector (Repatha BybanClick) INJECT 140MG (1 INJECTION) UNDER THE SKIN EVERY 14 DAYS. REMOVE FROM REFRIGERATOR 30 MINUTES PRIOR TO INJECTION 6 mL 3 09/27/2022 4 Active Warfarin Sodium 2.5 MG Oral Tablet (Coumadin)Indicati ons:Atrial fibrillation, unspecified type (HCC),Anticoagulat ion management encounter,shelter current use of anticoagulant therapy,Paroxysmal atrial fibrillation (HCC) Take 1 tablet by mouth daily as directed. Current regimen: 2.5 mg (1 tablet) on Mondays and Fridays; Take 1.25 mg (1/2 tablet) all other days OR as directed by anticoagulation clinic 75 Tablet 3 11/10/2022 Active Amiodarone HCl 200 MG Oral Tablet (Cordarone) Take 1 Tablet by mouth in the morning. 90 Tablet 3 11/16/2022 Active Bisacodyl 5 MG Oral Tablet Delayed Release (Dulcolax) Do not use for more than one week. Do not cut, crush or chew 1-2 tablet a day as long as he is not having diarrhea, if 3 days without a bowel movement, double current dose Once have bowel movement, start decreasing it down until has bowel movement at minimum every 3rd day. 40 Tablet 1 11/18/2022 Active Polyethylene Glycol 3350 17 GM Oral Packet Take 1 Packet by mouth daily as needed. 0 Active Potassium Chloride ER 10 MEQ Oral Tablet Extended ReleaseIndications :Chronic diastolic congestive heart failure (HCC) Take 1 Tablet by mouth daily. 90 Tablet 3 12/13/2022 Active Midodrine HCl 10 MG Oral Tablet (Proamatine)Indica tions:Autonomic orthostatic hypotension Take 1 Tablet by mouth every morning. Take 0.5 tablet shortly before or upon rising in the morning, at midday, and in the late afternoon (not later than 6 PM) 135 Tablet 3 12/13/2022 Active Escitalopram Oxalate 10 MG Oral Tablet (Lexapro)Indicatio ns:Lambda light chain myeloma (HCC) Take 1 Tablet by mouth in the morning. 90 Tablet 3 12/16/2022 Active Pantoprazole Sodium 20 MG Oral Tablet Delayed Release (Protonix)Indicati ons:Gastroesophage al reflux disease without esophagitis TAKE ONE TABLET BY MOUTH EVERY MORNING 90 Tablet 2 12/26/2022 Active Levothyroxine Sodium 50 MCG Oral Tablet (Levoxyl) Take 1 Tablet by mouth in the morning. (at least 30 min prior to breakfast or other meds). 90 Tablet 3 01/11/2023 Active oxyCODONE HCl 5 MG Oral Tablet (Oxy IR)Indications:Mul tiple myeloma in relapse (HCC) Take 1 Tablet by mouth every 6 hours as needed for Pain, Breakthrough. 30 Tablet 0 01/21/2023 Active Ozempic (0.25 or 0.5 MG/DOSE) 2 MG/3ML Solution Pen-injector (Semaglutide(0.25 or 0.5MG/DOS))Indicat ions:Type 2 diabetes mellitus with hemoglobin A1c goal of less than 7.0% ([facility]) Inject 0.25 mg under the skin once a week. E11.9 9 mL 1 01/26/2023 Active Folic Acid 400 MCG Oral TabletIndications: Low folate TAKE ONE TABLET BY MOUTH EVERY MORNING 90 Tablet 1 02/05/2023 Active DULoxetine HCl 30 MG Oral Capsule Delayed Release Particles (Cymbalta)Indicati ons:Peripheral neuropathic pain Take 1 Capsule by mouth every evening. Do not cut, crush or chew 30 Capsule 5 02/16/2023 Active Additional Information Patient not taking.Reported on 03/07/2023 DULoxetine HCl 20 MG Oral Capsule Delayed Release Particles Take 2 Capsules by mouth in the morning. 0 Active Sulfamethoxazole-T rimethoprim 800-160 MG Oral Tablet (Bactrim DS) Take 1 Tablet by mouth in the morning and 1 Tablet before bedtime. 6 Tablet 0 03/17/2023 Active oxyCODONE-Acetamin ophen 5-325 MG Oral Tablet (Percocet) Take 1 Tablet by mouth every 6 hours as needed for Pain, Severe. 10 Tablet 0 03/17/2023 Active Phenazopyridine HCl 200 MG Oral Tablet (Pyridium) Take 1 Tablet by mouth 3 times a day as needed for Other (bladder spasms). After meals. 18 Tablet 0 03/17/2023 Active documented as of this encounter (statuses as of 03/17/2023) Active Problems Problem Noted Date Chemotherapy-induced neuropathy 11/09/19 23 Chronic heart failure with preserved eje ction fraction 06/10/2022 Congenitally solitary right kidney 05/31 BPH with obstruction/lower urinary tract symptoms 05/31/2022 Chronic kidney disease, stage 3b 022 Overview: Per CKD protocol Type 2 diabetes mellitus with stage 3b c hronic kidney disease 03/22/2022 Overview: Per CKD protocol Immunosuppressed status 02/20/2022 Hyperlipidemia with target LDL less than 70 10/09/2021 Coronary artery disease, non-occlusive 0 10/09/2021 Current chronic use of systemic steroids 03/19/2021 Peripheral neuropathic pain 01/05/2021 Statin intolerance 08/28/2019 DEBBY (obstructive sleep apnea) 06/04/2019 Lambda light chain myeloma 01/25/2019 Type 2 diabetes mellitus with hemoglobin A1c goal of less than 7.0% 01/02/2019 Hypogammaglobulinemia 01/02/2019 Organ-limited amyloidosis 12/18/2018 Anxiety 12/18/2018 Senile cardiac amyloidosis 03/28/2018 PAF (paroxysmal atrial fibrillation) AL amyloidosis 01/02/2018 Multiple myeloma without remission 06/14 Overview: Dr Rodriges/ [facility] ADVANCE DIRECTIVE INFORMATION 10/13/2006 Overview: No, Advance Directive brochure offered , patient declined. Degeneration of lumbosacral intervertebr al disc 02/19/2005 documented as of this encounter (statuses as of 03/17/2023) Resolved Problems Problem Noted Date Resolved Date Type 2 diabetes mellitus wit h stage 3b chronic kidney disease, without long-term current use of insulin 11/09/202211/10 Hepatic cirrhosis 09/08/2022 11/11/2022 Chronic kidney disease, stage 3a 02/24/2021 02/25/2022 Overview: Per CKD protocol Type 2 diabetes mellitus wit h stage 3a chronic kidney disease 01/20/2021 03/25/2022 Overview: Per CKD protocol Diabetes mellitus with stage 3 chronic kidney di sease 07/21/2020 01/22/2021 Overview: Per CKD protocol CKD stage G3a/A2, GFR 45-59 and albumin creatinine ratio 30-299 mg/g 01/07/2018 03/25/2022 Overview: Per CKD protocol NONE 02/19/2005 Adjustment disorder with depressed mood 12/18/2018 documented as of this encounter (statuses as of 03/17/2023) Immunizations Name Administration Dates Next Due COVID-19, LNP-s, No Preserve , Azar-sucrose, Ages 12+ (Pfizer) 10/06/2021,06/23/2021 Hepatitis B, 20+ yrs 11/20/2019,06/21/2019,05/22 Pneumococcal Conjugate Vacc, 13 Valent (Prevnar) 05/13/2020 Pneumococcal Polysaccharide PPV23 (Pneumovax) 05/22/2019 Seasonal Influenza, Quadriva lent, No Preserve, 6 Mons & Above, IM 06/10/2022,07/23/2021,07/31/2020,05/22 Seasonal Influenza, Split, I IV3, No Preserve, Inj 05/13/2018 TDAP (age 10 and older)(Boostrix) 01/02/2019 Zoster Vaccine Recombinant (Shingrix) 09/30/2020 ,07/31/2020 documented as of this encounter Social History Tobacco Use Types Packs/Day Years Used Date Smoking Tobacco: Never Smokeless Tobacco: Current Chew Comments:one pouch or a jack le less daily for 17 years Alcohol Use Standard Drinks/Week Comments Yes 0 (1 standard drink = 0.6 oz pur e alcohol) rarely Food Insecurity Answer Date Recorded Within the past 12 months, y ou worried that your food would run out before you got money to buy more. Never true 02/22/2022 Within the past 12 months, t he food you bought just didn't last and you didn't have money to get more. Never true 02/22/2022 Sex Assigned at Date Recorded Male 02/22/2022 1:14 PM E DT Job Start Date Occupation Industry Not on file Not on file Not on file documented as of this encounter Miscellaneous Notes * Telephone Encounter - Racquel Taylor, [facility] - 03/17/2023 12:23 PM EDT Please see the following BPA for patient: Date User Actions Taken Triggers Comment 03/17/23 08 Devyn Paniagua MD [[id number]] Send In Basket Message Sign Orders 0 SULFAMETHOXAZOLE-TRIMETHOPRIM 800-160 MG OR TABS [31314] 0 AMIODARONE HCL 200 MG OR TABS [02656] 0 WARFARIN SODIUM 2.5 MG OR TABS [93915] 0 Order: Amiodarone HCl 200 MG Oral Tablet (Cordarone) 0 Order: Warfarin Sodium 2.5 MG Oral Tablet (Coumadin) 0 Order: Sulfamethoxazole-Trimethoprim 800-160 MG Oral Tablet (Bactrim DS) Patient is currently admitted at [facility] for a cystourethroscopy. Racquel Taylor [facility], PharmD, BCACP Clinical Pharmacist Medication Therapy Management [facility] 03/17/23, 12:24 PM documented in this encounter Plan of Treatment Upcoming Encounters Date Type Specialty Care Team Description 03/22/2023 Nurse Only Cardiology [place], Nurse Cardiology [address] [place] [id number] 03/25/2023 Laboratory Laboratory [place], Lab Scenery [address] [place] [address] 03/25/2023 Hem/Onc Treatment Hematology Oncology 04/01/2023 Laboratory Laboratory [place], Lab Scenery [address] [place] [address] 04/01/2023 Hem/Onc Treatment Hematology Oncology [place], Chair 7 Hem Onc Scenery [address] [place] [address] 04/08/2023 Telemedicine Cardiology [facility] Cardiology [facility] [address] [facility] [place] [address] 04/11/2023 Home Visit [facility] [facility] Rufina Lucia RN [address] [place] [address] 04/13/2023 Office Visit Urology Devyn Paniagua MD [address] [facility] [address] [place] [address] 04/15/2023 Laboratory Laboratory [place] Lab Scenery [address] [place] [address] 04/15/2023 Hem/Onc Treatment Hematology [place], Chair 9 Hem Onc Scenery [address] [place] [address] 04/25/2023 Office Visit Family Medicine Jaime Garcia MD [address] [place] [address] [place] [address] 04/26/2023 Office Visit Cardiology Tim Ruiz PA-C [address] [place] [address] 04/27/2023 Office Visit Nephrology Armando Cook MD [address] [place] [address] 05/05/2023 Telemedicine Hematology Oncology Rosalio Amaral MD [address] [place] [address] [place] [address] 06/09/2023 Office Visit Cardiology Tim Ruiz PA-C [address] [place] [address] Scheduled Procedures Name Priority Associated Diagnoses Date/Ti me CYSTOURETHROSCOPY, WITH INSERTION OF PERMANENT ADJUSTABLE TRANSPROSTATI IMPLANT; SINGLE IMPLANT BPH with obstruction/lower urinary tract symptoms 03/17/2023 6:56 AM EDT Health Maintenance Due Date Last Done Comments HIV Screening 1985 Hepatitis C Screening 01/29/1988 Cologuard 2015 Fecal Occult Blood Test 2015 Sigmoidoscopy 2015 COVID-19 Vaccine (3 - Pfizer risk series) 11/03/2021 10/06/2021, 06/23/2021 Depression Screening, Annual for Pts 12 and Over 01/05/2022 01/05/2021 DIABETES-FOOT EXAM 12/14/2022 12/14/2021, 0 10/15/2020, 06/25/2019 Influenza Vaccine (FLU shot) (#1) 2023 06/10/2022, 07/23/2021, 07/31/2020, Additional history exists DIABETES-EYE EXAM 07/05/2023 07/05/2022, , 09/30/2020, Additional history exists HbA1c 07/09/2023 01/07/2023, 03/12, 01/01/2022, Additional history exists GFR 09/03/2023 03/04/2023, 05/2023, 02/18/2023, Additional history exists TSH 02/01/2024 01/31/2023, 12/12, 12/10/2022, Additional history exists Albumin/Creatinine Ratio 02/19/2024 023, 02/04/2023, 01/07/2023, Additional history exists CKD PHOS USE SMARTSET 06585 02/19/202405/2023, 08/04/2022, 01/16/2021, Additional history exists CKD HGB USE SMARTSET 98966 03/04/202403/04, 03/04/2023, 02/18/2023, Additional history exists Pneumococcal Vaccine: Pediatrics (0 to 5 Years) and At-Risk Patients (6 to 64 Years) (3 - PPSV23 if available, else PCV20) 05/22/2024 05/13/2020, 05/22/2019 DTaP,Tdap,and Td Vaccines (2 - Td or Tdap) 01/02/2029 01/02/2019 Colonoscopy 09/09/2031 09/09/2021, 08/13, 09/02/2017 Colorectal Cancer Screening 09/09/2031 Hepatitis B Completed 11/20/2019, 06/12, 05/22/2019 Zoster Vaccines Completed 09/30/2020, 07/31/2020 GARDASIL-HPV IMMUNIZATION SERIES Aged Out No longer eligible based on patient's age to complete this topic MENINGOCOCCAL (MENACTRA/MENVEO) Aged Out No longer eligible based on patient's age to complete this topic documented as of this encounter Medical Devices Implanted Type Area Director Of Philanthropy Device Identifier Shelf Expiration Date Model / Serial / Lot Port Power Mri W/8fr Cath - [id number] Implanted:Qty: 1 on 09/26/2020 by Simone Michelle MD at OR [facility] Right: Chest CR BARD : PERIPHERAL VASCULAR 10/12/2021 [id number] / / [id number] Description:right IJ Lens Intraoc 19.0 - [id number] - [id number] Implanted:Qty: 1 on 02/03/2021 by Chris Sexton MD at OR [facility] Right: Eye [employer]CH [employer] LOMB 09/11/2025 [id number] / [id number] / Lens Intraoc 19.0 - [id number] - [id number] Implanted:Qty: 1 on 02/24/2021 by Chris Sexton MD at OR [facility] Left: Eye BAUSCH [employer] LOMB 10/12/2025 [id number] / [id number] / [id number] System Urolift - [id number] Implanted:Qty: 3 on 03/17/2023 by Devyn Paniagua MD at OR [facility] N/A: Urethra [employer] 11/03/2023 [id number] / / [id number] documented as of this encounter Visit Diagnoses Diagnosis PAF (paroxysmal atrial fibrillation) (HCC)- Primary Atrial fibrillation documented in this encounter Advance Directives Latest Code Status on File Code Status Date Activated Date Inactivated Comments Full Code 03/17/2023 8:20 AM This order reflects the patients wishes and were consensually agreed upon. Question Answer Comments Discussion of Advance Directives occurred with: Patient Code Status History Code Status Date Activated Date Inactivated Comments Full Code 03/17/2023 6:32 AM 03/17/2023 8:20 AM This or dilshad reflects the patients wishes and were consensually agreed upon. Question Answer Comments Discussion of Advance Directives occurred with: Patient Full Code 09/26/2020 9:24 AM 09/26/2020 3:37 PM This order reflects the patients wishes and were consensually agreed upon. Care Teams Wire Straightener Relationship Specialty Start Date End Date Jaime Garcia MD [address] [place] [address] [place] [address] PCP - General Family Medicine 10/15/20 documented as of this encounter
--- OUTSIDE RECORDS SUMMARY | 2023-08-09 01:15 | External Medical Summary | Summary of Care ---
Author Name Unknown Organization [facility] Address [address] [place] [address] Phone [phone] Care Team Providers Care Cattle Inspector Name Role Phone Jaime Garcia MD Primary Care Provide r Reason for Visit * Reason Onset Date Comments medication change 03/17/2023 Encounter Details Date Type Department Care Team Description 03/17/2023 Telephone Pharmacy [facility] [address] [place] [address] [facility] [address] [place] [address] medication change Allergies Active Allergy Reactions Severity [...] Use up to 16 weeks Given by [facility] general surgery 12 Packet 3 01/19/2021 Active Additional Information Patient not taking.Reported on 02/28/2023 OneTouch Ultra Blue In Vitro Strip (Glucose Blood)Indications: Type 2 diabetes mellitus with hemoglobin A1c goal of less than 7.0% ([facility]) Use as directed daily. Test once daily DxE11.9 100 Strip 5 03/02/2021 Active LancetsIndications :Type 2 diabetes mellitus with hemoglobin A1c goal of less than 7.0% ([facility]) Test once daily DxE11.9. 100 Each 5 [...] Evolocumab 140 MG/ML Subcutaneous Solution Auto-injector (Repatha WilocityClick) INJECT 140MG (1 INJECTION) UNDER THE SKIN [...] hemoglobin A1c goal of less than 7.0% ([facility]) Inject 0.25 mg under the skin once [...] myeloma without remission 06/14 Overview: Dr Rodriges/ [facility] DIRECTIVE INFORMATION 10/13/2006 Overview: No, Advance [...] encounter Miscellaneous Notes * Telephone Encounter - [facility] - 03/17/2023 1:02 PM EDT Medication Therapy Disease Management - Anticoagulation Patient: Jerardo Ochoa Jr. : 1970 Noted by MTM. Patient has not been seen by [facility] since 01/2023. INR therapeutic at that time. Patient had been holding warfarin x5 days prior to cystourethroscopy without Lovenox bridge per Cardio in 02/28 TE. Patient was started on Sulfamethoxazole-TMP DS for x3 days. Current weekly dose: 0 mg every Tue;1.25 mg all other days. Patient's current INR today is 1.2. As opposed to bolusing, will plan to restart regular maintenance dose due to Bactrim effect. Called patient and reviewed this. He expressed understanding. Chemo labs x1 week. Will plan to obtain updated INR at that time. Barbara Jiménez RPh, PharmD Clinical Pharmacist - Human Resource Manager Medication Therapy Disease Management [facility] 03/17/2023, 1:14 PM Ph.[phone] * Telephone Encounter - Racquel Taylor RPh - 03/17/2023 12:23 PM EDT Please see the following BPA for patient: Date User Actions Taken Triggers Comment 03/17/23 08 Devyn Paniagua MD [[id number]] Send In Basket Message Sign Orders 0 SULFAMETHOXAZOLE-TRIMETHOPRIM 800-160 MG OR TABS [31346] 0 AMIODARONE HCL 200 MG OR TABS [[id number]] 0 WARFARIN SODIUM 2.5 MG OR TABS [[id number]] 0 Order: Amiodarone HCl 200 MG Oral Tablet (Cordarone) 0 Order: Warfarin Sodium 2.5 MG Oral Tablet (Coumadin) 0 Order: Sulfamethoxazole-Trimethoprim 800-160 MG Oral Tablet (Bactrim DS) Patient is currently admitted at [facility] for a cystourethroscopy. Racquel Taylor RPh, PharmD, BCACP Clinical Pharmacist Medication Therapy Management Clinic 03/17/23, 12:24 PM documented in this encounter Plan of Treatment Upcoming Encounters Date Type Specialty Care Team Description 03/22/2023 Nurse Only Cardiology [place], Nurse Cardiology [address] [place] [id number] 03/25/2023 Laboratory [facility] [place], Lab Scenery [address] [place] [address] 03/25/2023 Hem/Onc Treatment Hematology Oncology 03/25/2023 Anticoagulation Pharmacy [address] [place] [address] 04/01/2023 Laboratory Laboratory [place], Lab Scenery [address] [place] [address] 04/01/2023 Hem/Onc Treatment Hematology Oncology [place], Chair 7 Hem Onc Scenery [address] [place] [address] 04/08/2023 Telemedicine Cardiology [facility] Cardiology [place] [address] [place] [address] 04/11/2023 Home Visit [facility] Rufina Lucia RN [address] [place] [address] 04/13/2023 Office Visit Urology Devyn Paniagua MD [address] [place] [address] 04/15/2023 Laboratory Laboratory [place], Lab Scenery [address] [place] [address] 04/15/2023 Hem/Onc Treatment Hematology Oncology [place], Chair 9 Hem Onc Scenery [address] [place] [address] 04/25/2023 Office Visit Family Medicine Jaime Garcia MD [address] [place] [address] [place] [address] 04/26/2023 Office Visit Cardiology Tim Ruiz PA-C [address] [place] [address] 04/27/2023 Office Visit Nephrology Armando Cook MD [address] [place] [address] 05/05/2023 Telemedicine Hematology Oncology Rosalio Amaral MD [address] [facility] [place] [address] 06/09/2023 Office Visit Cardiology Tim Ruiz PA-C [address] [place] [address] Scheduled Procedures Name Priority Associated Diagnoses Date/Ti [...] 09/30/2020, Additional history exists HbA1c 07/09/2023 01/07/2023, 07/1 10/2021, 01/01/2022, Additional history exists GFR 09/03/2023 03/04/2023, 06/0 05/2023, 02/18/2023, Additional history exists TSH 02/01/2024 01/31/2023, 12/12, 12/10/2022, Additional history exists Albumin/Creatinine Ratio 02/19/2024 023, 02/04/2023, 01/07/2023, Additional history exists CKD PHOS USE SMARTSET 73562 02/19/2024 06/0 05/2023, 08/04/2022, 01/16/2021, Additional history exists CKD HGB USE SMARTSET 91132 03/04/202403/04, 03/04/2023, 02/18/2023, Additional history exists Pneumococcal [...] this encounter Medical Devices Implanted Type Area Training Instructor Device Identifier Shelf Expiration Date Model / Serial / Lot Port Power Mri W/8fr Cath - [id number] Implanted:Qty: 1 on 09/26/2020 by Simone Michelle MD at OR [facility] Right: Chest CR BARD : PERIPHERAL VASCULAR 10/12/2021 [id number] / / [id number] Description:right IJ Lens Intraoc 19.0 - [id number] - [id number] Implanted:Qty: 1 on 02/03/2021 by Chris Sexton MD at OR [facility] Right: Eye [employer] 09/11/2025 [id number] / [id number] / Lens Intraoc 19.0 - [id number] - [id number] Implanted:Qty: 1 on 02/24/2021 by Chris Sexton MD at OR [facility] Left: Eye [employer]OM[employer] 10/12/2025 [id number] / [id number] / [id number] System Urolift - [id number] Implanted:Qty: 3 on 03/17/2023 by Devyn Paniagua MD at OR [facility] N/A: Urethra [employer] 11/03/2023 [id number] / / [id number] documented as of this encounter Visit Diagnoses [...] and were consensually agreed upon. Care Teams Cattle Inspector Relationship Specialty Start Date End Date Jamie Garcia MD [address] [place] [address] [place] [id number] PCP - General Family Medicine 10/15/20 documented as of this encounter
[2023-08-09] MEDS ORDERED: POTASSIUM CHLORIDE CRTAB 20 MEQ TABCR PO STA (01:41)
[2023-08-09] MEDS ORDERED: MAGNESIUM SULFATE / D5W 1 GM/100 ML BAG IV ONE (02:00)
[2023-08-09] MEDS: POTASSIUM CHLORIDE / WTR 10 MEQ/100 ML PLCT IV SCH ×4 (02:19→10:16)
[2023-08-09] MEDS ORDERED: ONDANSETRON INJ 2 MG/ML 2 ML VIAL IV PRN (02:20)
[2023-08-09] MEDS ORDERED: CARBOHYDRATES FOR HYPOGLYCEMIA PO PRN (02:20)
[2023-08-09] MEDS ORDERED: GLUCAGON FOR INJ 1 MG VIAL SQ PRN (02:20)
[2023-08-09] MEDS ORDERED: DEXTROSE 50% 50 ML SYRINGE IV PRN (02:20)
[2023-08-09] MEDS ORDERED: ALBUTEROL HFA 8 GM INHALER INH PRN (02:20)
[2023-08-09] MEDS ORDERED: GLUCOSE 10 TAB/TUBE PO PRN (02:20)
[2023-08-09] MEDS ORDERED: GLUCOSE 40% GEL 15 GM TUBE PO PRN (02:20)
[2023-08-09] MEDS ORDERED: EPINEPHrine INJ 1 MG/ML AMP IM PRN (02:20)
[2023-08-09] MEDS ORDERED: NITROGLYCERIN SL 0.4 MG/TAB TAB SL PRN (02:20)
[2023-08-09] MEDS ORDERED: STAT IV/IM STA (02:23)
[2023-08-09] MEDS ORDERED: CALCIUM GLUCONATE 1,000 MG/60 ML BAG IV STA (02:27)
[2023-08-09] MEDS: SODIUM CHLORIDE 0.9% 1,000 ML IV SCH ×3 (02:27→20:44)
--- NOTE | 2023-08-09 02:39 | History & Physical Report ---
Date of Service August 09, 2023 Assessment & Plan (1) Acute dehydration: Plan: 53-year-old male with past medical history significant for type 2 diabetes, hyperlipidemia, obstructive sleep apnea, paroxysmal atrial fibrillation, cardiac amyloidosis, multiple myeloma without remission, currently on chemo history of CAD nonocclusive, chronic heart failure with preserved ejection fraction, chronic kidney disease stage III, congenital solitary right kidney, BPH, peripheral neuropathic pain, chemotherapy-induced neuropathy, anxiety, presents with diarrhea and hypotension and electrolyte abnormalities. Acute dehydration Diarrhea Salmonella infection Hypotension on presentation improved with the fluids Took a dose of Levaquin in the morning . Will hold Levaquin because of prolonged QTc Start on IV Rocephin 2 g daily may need prolonged course can consult ID IV fluids Close monitor. Electrolyte abnormalities Hypokalemia and hypomagnesemia and hypocalcemia Will replace Follow repeat labs Prolonged QTc Probably from electrolyte abnormalities Avoid QT prolonging agents Will hold duloxetine and Lexapro for now Follow repeat EKG History of chronic heart failure preserved ejection fraction Cardiac amyloidosis Currently holding torsemide and home potassium supplement Getting fluids Monitor for volume overload History of multiple myeloma Getting chemo every 2 weeks Follows with heme-onc Diabetes Hold home medications Insulin sliding scale Follow the blood sugars History of A-fib On Coumadin Was on amiodarone but currently stopped Follow PT/INR History of CAD nonocclusive On Coumadin and Repatha History of orthostatic hypotension On midodrine Hypothyroidism On Synthyroid BPH On finasteride GERD Protonix and famotidine Obstructive sleep apnea on CPAP nightly CKD stage III Solitary kidney Presented with creatinine 1.7 seems to be around baseline Follow labs Metabolic acidosis From ongoing illness We will follow the labs DVT PX on Coumadin. Follow pt/ir Disposition: Tele floor Full code. Admission and Anticipated Discharge Date Admission Date: August 09, 2023 History of Present Illness Chief Complaint: Diarrhea, hypotension, electrolyte abnormalities Primary Care Provider: Jaime Garcia MD 53-year-old male with past medical history significant for type 2 diabetes, hyperlipidemia, obstructive sleep apnea, paroxysmal atrial fibrillation, cardiac amyloidosis, multiple myeloma without remission, currently on chemo history of CAD nonocclusive, chronic heart failure with preserved ejection fraction, chronic kidney disease stage III, congenital solitary right kidney, B PH, peripheral neuropathic pain, chemotherapy-induced neuropathy, anxiety, presents with diarrhea and hypotension and electrode abnormalities. Patient was in the ER in the morning and stool studies found to have Salmonella and was discharged on PO Levaquin. At home he has having a lot of diarrhea feeling generalized weakness and nausea and he came back to the ER and was found to be hypotensive . BP improved with the fluids. Has some abdominal discomfort. Says he had about 10 episodes of diarrhea loose watery. No blood in the stools. Micturating okay. Denies any chest pain. No shortness of breath. No headache. No blurred visions. No cough. No runny nose. Past medical history. As mentioned above Past surgical history. Colonoscopy. Cystourethroscopy with plans prostatic im plant. EGD. EGD with endoscopic ultrasound. S/p autologous stem cell transplantation 2014. Bilateral cataract surgery. Vasectomy. Social history. . No smoking. Alcohol rarely. No drug use. Family history. No family history on file. Allergies Allergy/AdvReac Type Severity Reaction Status Date / Time NSAIDS (Non-Steroidal AdvReac Advised by Verified 05/06/23 06:17 Anti-Inflamma nephrology to avoid d/t CKD [id number] Reductase AdvReac Muscle Pain Verified 05/06/23 06:17 Inhibitor Home Medications Medication Instructions Recorded Confirmed Type acyclovir 400 mg tablet 400 mg PO QPM 05/16/18 08/09/23 History albuterol sulfate 90 mcg/actuation 2 puff inhalation Q6 PRN Cough or 05/16/18 08/09/23 History aerosol inhaler (Ventolin HFA) SOB escitalopram oxalate 10 mg tablet 10 mg PO QAM 05/16/18 08/09/23 History (Lexapro) pantoprazole 20 mg tablet,delayed 20 mg PO QAM 09/02/20 08/09/23 History release (Protonix) potassium chloride 10 mEq 10 meq PO QAM 09/02/20 08/09/23 History tablet,extended release dapsone 25 mg tablet 25 mg PO QAM 02/26/22 08/09/23 History evolocumab 140 mg/mL subcutaneous 140 mg subcut UD 02/26/22 08/09/23 History pen injector (Repatha SureClick) folic acid 400 mcg tablet 400 mcg PO QAM 02/26/22 08/09/23 History finasteride 5 mg tablet 5 mg PO QAM 07/24/22 08/09/23 History oxycodone 5 mg tablet 5 mg PO Q6H PRN Pain 07/24/22 08/09/23 History trazodone 50 mg tablet 50 mg PO HS PRN Insomnia 07/24/22 08/09/23 History dexamethasone 4 mg tablet 20 mg PO .TWICE A MONTH 05/02/23 08/09/23 History duloxetine 20 mg capsule,delayed 40 mg PO QAM 05/02/23 08/09/23 History release sprinkle icosapent ethyl 1 gram capsule 2 g PO BID 05/02/23 08/09/23 History (Vascepa) immun glob G 4 gram/20 mL(20 0 ml subcut UD 05/02/23 08/09/23 History %)-prol-IgA 0-50 mcg/mL subcutaneous soln (Hizentra) levothyroxine 50 mcg tablet 50 mcg PO QAM 05/02/23 08/09/23 History torsemide 20 mg tablet 20 mg PO QAM 05/02/23 08/09/23 History levofloxacin 750 mg tablet 750 mg PO Q48H #4 tabs 08/08/23 08/09/23 Rx ondansetron 4 mg disintegrating 4 mg PO Q6H PRN nausea and 08/08/23 08/09/23 Rx tablet vomiting #20 tabs Nss 0.9% W Daratumumab 16mg/Kg 1 dose IV .EVERY 14 DAYS 08/09/23 08/09/23 History acetaminophen 325 mg tablet 325 mg PO UD 08/09/23 08/09/23 History cholecalciferol (vitamin D3) 50 50 mcg PO QAM 08/09/23 08/09/23 History mcg (2,000 unit) tablet (Vitamin D3) diphenhydramine HCl 50 mg capsule 50 mg PO UD 08/09/23 08/09/23 History epinephrine 0.3 mg/0.3 mL 0.3 mg IM UD PRN severe reaction 08/09/23 08/09/23 History injection, auto-injector (EpiPen) famotidine 20 mg tablet 20 mg PO HS 08/09/23 08/09/23 History insulin glargine 100 unit/mL (3 10 unit subcut QPM 08/09/23 08/09/23 History mL) subcutaneous pen (Lantus Solostar U-100 Insulin) metformin 500 mg tablet,extended 1,000 mg PO QAM 08/09/23 08/09/23 History release 24 hr midodrine 10 mg tablet 10 mg PO UD 08/09/23 08/09/23 History ondansetron HCl 8 mg tablet 8 mg PO Q8H PRN Nausea 08/09/23 08/09/23 History tenofovir alafenamide 25 mg tablet 25 mg PO QAM 08/09/23 08/09/23 History (Vemlidy) warfarin 2.5 mg tablet 2.5 mg PO UD 08/09/23 08/09/23 History Past Med/Surg History Medical History CAD (coronary artery disease) Nonobstructive GERD (gastroesophageal reflux disease) Atrial fibrillation Follows with [facility]/Tim SAUCEDO Low back problem BPH (benign prostatic hyperplasia) CKD (chronic kidney disease) Follows with [facility]/Dr. 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 Amaral [facility] Surgical History History of surgery vasectomy reversal History of surgery Urolift History of vascular access device Right chest port (type unknown) History of cataract surgery History of cardiac cath Right heart cath (2017) History of colonoscopy History of esophagogastroduodenoscopy (EGD) H/O vasectomy Family History Father No problems noted. Mother No problems noted. Other Adopted Social History Smoking Status: Never smoker Tobacco Type: Cigarettes Second Hand Exposure: Yes (as a child); Do You Dip or Chew Tobacco: Yes (1 pouch per day); Hx Alcohol Use: No Hx Substance Use: No Preferred Language: [place] Communication Ability: Effective Mirror Finishing Machine Operator Required: No Beliefs That Will Affect Care: None marital status: marital status details: twice - 3 children in total between the 2 marriages Current Living Situation: Spouse Current Living Situation Comment: lives in [place] current occupational status: disabled current occupation: previously worked at [employer] Other Information That Helps Us Care for You: No Feels Safe at Home: Yes Safety Concerns: Feels Safe At This Time Assistive Devices: Cane, CPAP and Glasses Review of Systems Review of Systems: All systems reviewed & are unremarkable except as noted in HPI & below Physical Exam Physical Exam: General- adult Head- atraumatic Eyes- PERRL. ENT- oropharynx dry Neck- supple, no JVD, Lungs- clear to auscultation no wheezing or crackles Heart- regular rhythm; no murmur, no gallop. Abdomen- normal bowel sounds, soft, mild diffuse discomfort, no distension. Extremities- no pretibial edema, no erythema seen Neuro- alert, oriented x 3; PERRL, no facial palsy; no dysarthria; moves extremities. Skin- warm & dry Results & Data Results & Data Vital Signs (Past 12 Hours) Vital Signs Temp Pulse Resp BP Pulse Ox O2 Del Method 08/09/23 01:01 83 20 101/60 99 Room Air 08/09/23 00:00 87 20 124/79 98 Room Air 08/08/23 23:48 88 20 119/74 96 Room Air 08/08/23 23:00 82 20 115/76 95 Room Air 08/08/23 22:57 18 95 Room Air 08/08/23 22:32 82 18 94 08/08/23 21:54 95 Room Air 08/08/23 21:47 36.4 C L 88 19 84/48 L 97 Room Air Diagnostic Findings Laboratory Results WBC 8.80 K/ul (4.8-10.8) 08/08/23 10:33 RBC 3.97 M/uL (4.70-6.10) L 08/08/23 10:33 Hgb 12.8 g/dl (14.0-18.0) L 08/08/23 10:33 Hct 36.7 % (42.0-52.0) L 08/08/23 10:33 MCV 92.4 fL (80.0-100.0) 08/08/23 10:33 MCH 32.2 pg (25.0-34.0) 08/08/23 10:33 MCHC 34.9 g/dL (32.0-36.0) 08/08/23 10:33 RDW Std Deviation 50.4 fL (36.4-46.3) H 08/08/23 10:33 RDW Coeff of Tobi 14.7 % (11.5-14.5) H 08/08/23 10:33 Plt Count 198 K/uL (130-400) 08/08/23 10:33 MPV 10.7 fL (9.4-12.4) 08/08/23 10:33 Immature Gran % (Auto) 0.6 % 08/08/23 10:33 Neut % (Auto) 94.5 % 08/08/23 10:33 Lymph % (Auto) 0.8 % 08/08/23 10:33 Moore % (Auto) 3.3 % 08/08/23 10:33 Eos % (Auto) 0.3 % 08/08/23 10:33 Baso % (Auto) 0.5 % 08/08/23 10:33 Neut # (Auto) 8.32 K/uL (1.40-6.50) H 08/08/23 10:33 Lymph # (Auto) 0.07 K/uL (1.20-3.40) L 08/08/23 10:33 Moore # (Auto) 0.29 K/uL (0.11-0.59) 08/08/23 10:33 Eos # (Auto) 0.03 K/uL (0.00-0.50) 08/08/23 10:33 Baso # (Auto) 0.04 K/uL (0.00-0.20) 08/08/23 10:33 Immature Gran # (Auto) 0.05 K/uL (0.01-0.20) 08/08/23 10:33 Echinocytes 1+ 08/08/23 10:33 Sodium 136 mmol/L (136-145) 08/08/23 10:33 Potassium 3.0 mmol/L (3.5-5.1) L 08/08/23 10:33 Chloride 108 mmol/L (98-107) H 08/08/23 10:33 Carbon Dioxide 16 mmol/L (21-32) L 08/08/23 10:33 Anion Gap 12 (3-11) H 08/08/23 10:33 BUN 41 mg/dl (6-23) H 08/08/23 10:33 Creatinine 1.74 mg/dl (0.6-1.4) H 08/08/23 10:33 Est Cr Clr Drug Dosing 47.5 ml/min 08/08/23 10:33 Est GFR ( Amer) 50.8 ml/min 08/08/23 10:33 Est GFR (Non-Af Amer) 43.8 ml/min 08/08/23 10:33 BUN/Creatinine Ratio 23.6 (10-20) H 08/08/23 10:33 Glucose 112 mg/dl (70-99(Fasting)) H 08/08/23 10:33 Lactate 1.9 mmol/L (0.4-2.0) 08/09/23 01:02 Calcium 6.8 mg/dl (8.6-10.3) L 08/08/23 10:33 Magnesium 1.6 mg/dl (1.7-2.4) L 08/08/23 10:33 Total Bilirubin 0.6 mg/dl (0.2-1.0) 08/08/23 10:33 AST 8 U/L (13-39) L 08/08/23 10:33 ALT 12 U/L (7-52) 08/08/23 10:33 Alkaline Phosphatase 85 U/L (34-104) 08/08/23 10:33 Total Protein 5.3 gm/dl (6.0-8.3) L 08/08/23 10:33 Albumin 3.1 gm/dl (3.4-5.0) L 08/08/23 10:33 Globulin 2.2 gm/dl (2.5-4.0) L 08/08/23 10:33 Albumin/Globulin Ratio 1.4 (0.9-2) 08/08/23 10:33 Lipase 8 U/L (11-82) L 08/08/23 10:33 Procalcitonin 0.67 ng/ml (0-0.5) H 08/08/23 10:33 ECG Additional Comments: ECG. Normal sinus rhythm at rate of 82. Possible left atrial enlargement. QTc 537 Code Status & VTE Plan VTE Prophylaxis Plan VTE Prophylaxis will be ordered: Yes
[2023-08-09] MEDS ORDERED: PROMETHAZINE HCL 6.25 MG in SODIUM CHLORIDE 0.9% 50 ML IV STA (06:02)
[2023-08-09] MEDS: LEVOTHYROXINE SODIUM 50 MCG TABLET PO SCH (06:16)
[2023-08-09 06:34] LABS: Calcium 7.3 mg/dl (8.6-10.3); Creatinine Clr Calc Pharmacy 49.5 ml/min; Est GFR (African American) 53.3 ml/min; Magnesium 2.3 mg/dl (1.7-2.4); Phosphorus 2.2 mg/dl (2.5-4.9); Potassium 3.5 mmol/L (3.5-5.1)
[2023-08-09 06:41] LABS: Basophils # (auto) 0.06 K/uL (0.00-0.20); Basophils % (auto) 0.7 %; Echinocytes 1+; Eosinophils # (auto) 0.02 K/uL (0.00-0.50); Eosinophils % (auto) 0.2 %; Hematocrit (blood only) 37.6 % (42.0-52.0); Hemoglobin 12.7 g/dl (14.0-18.0); Immature Granulocytes # (auto) 0.04 K/uL (0.01-0.20); Immature Granulocytes % (auto) 0.5 %; Lymphocytes # (auto) 0.05 K/uL (1.20-3.40); Lymphocytes % (auto) 0.6 %; Mean Corpuscular Hemoglobin 32.2 pg (25.0-34.0); Mean Corpuscular Hgb Conc 33.8 g/dL (32.0-36.0); Mean Corpuscular Volume 95.2 fL (80.0-100.0); Mean Platelet Volume 10.7 fL (9.4-12.4); Monocytes # (auto) 0.28 K/uL (0.11-0.59); Monocytes % (auto) 3.3 %; Neutrophils # (auto) 7.98 K/uL (1.40-6.50); Neutrophils % (auto) 94.7 %; Platelet Count 229 K/uL (130-400); RDW Standard Deviation 52.6 fL (36.4-46.3); Red Blood Count 3.95 M/uL (4.70-6.10); White Blood Count 8.43 K/ul (4.8-10.8)
[2023-08-09 06:56] LABS: INR 4.4 (0.9-1.1); Prothrombin Time 44.3 Seconds (9.0-12.0)
[2023-08-09 07:28] LABS: Estimated Average Glucose 197 mg/dl; Hemoglobin A1C 8.5 % (4.5-5.6)
[2023-08-09] MEDS ORDERED: POTASSIUM PHOS 3 MMOL/1 ML INFUSION IV STA (08:40)
[2023-08-09] MEDS: INSULIN ASPART PER UNIT CHARGE SC SCH ×4 (08:42→20:44)
[2023-08-09] MEDS: MIDODRINE HCL 10 MG TAB PO SCH (08:43)
[2023-08-09] MEDS: FINASTERIDE 5 MG TAB PO SCH (08:44)
[2023-08-09] MEDS: DAPSONE 25 MG TAB PO SCH (08:44)
[2023-08-09] MEDS: DULoxetine HCL 20 MG CAP PO SCH (08:44)
[2023-08-09] MEDS: CHOLECALCIFEROL 1,000 UNITS 25 MCG TAB PO SCH (08:44)
[2023-08-09] MEDS: PANTOprazole 40 MG TAB PO SCH (08:45)
[2023-08-09] MEDS ORDERED: POTASSIUM PHOSPHATE 24 MMOL in SODIUM CHLORIDE 0.9% 500 ML IV ONE (08:45)
[2023-08-09] MEDS: FOLIC ACID 400 MCG TAB PO SCH (08:45)
[2023-08-09] MEDS ORDERED: ESCITALOPRAM OXALATE 10 MG TAB PO SCH (09:00)
[2023-08-09] MEDS: MIDODRINE HCL 2.5 MG TAB PO SCH ×2 (11:23→17:43)
--- NOTE | 2023-08-09 13:57 | Electrocardiogram Report ---
Test Reason : Blood Pressure : / mmHG Vent. Rate : 082 BPM Atrial Rate : 082 BPM P-R Int : 180 ms QRS Dur : 094 ms QT Int : 460 ms P-R-T Axes : 070 110 266 degrees QTc Int : 537 ms Normal sinus rhythm Possible Left atrial enlargement Lateral infarct , age undetermined T wave abnormality, consider inferior ischemia Prolonged QT Abnormal ECG When compared with ECG of 24-JUL-2022 05:52, Lateral infarct is now Present Confirmed by Santiago Johnson ([id number]) on 08/09/2023 1:57:30 PM Referred By: REFERRED SELF Confirmed By:David Johnson
--- NOTE | 2023-08-09 14:04 | Electrocardiogram Report ---
Test Reason : Blood Pressure : / mmHG Vent. Rate : 075 BPM Atrial Rate : 075 BPM P-R Int : 200 ms QRS Dur : 098 ms QT Int : 460 ms P-R-T Axes : 059 087 208 degrees QTc Int : 513 ms Normal sinus rhythm Possible Left atrial enlargement Low voltage QRS Poor R wave progression, consider anterior ME vs. lead placement vs. LVH Prolonged QT Abnormal ECG When compared with ECG of 08-AUG-2023 22:18, (unconfirmed) Criteria for Lateral infarct are no longer Present T wave inversion no longer evident in Lateral leads Confirmed by Santiago Johnson ([id number] on 08/09/2023 2:03:45 PM Referred By: REFERRED SELF Confirmed By:David Johnson
[2023-08-09] MEDS: oxyCODONE HCL IR 5 MG TAB (IMMEDIATE RELEASE) PO PRN (14:41)
[2023-08-09] MEDS ORDERED: WARFARIN SOD 2.5 MG TAB PO SCH (16:00)
[2023-08-09] MEDS: ACYCLOVIR 400 MG TAB PO SCH (21:54)
[2023-08-09] MEDS: FAMOTIDINE 20 MG TAB PO SCH (21:54)
[2023-08-10] MEDS ORDERED: cefTRIAXone SODIUM 2,000 MG in DEXTROSE 5 % MINI-B 50 ML IV SCH (02:00)
[2023-08-10] MEDS: SODIUM CHLORIDE 0.9% 1,000 ML IV SCH ×3 (03:10→18:18)
[2023-08-10] MEDS: LEVOTHYROXINE SODIUM 50 MCG TABLET PO SCH (06:10)
[2023-08-10] MEDS: PROMETHAZINE HCL 6.25 MG in SODIUM CHLORIDE 0.9% 50 ML IV PRN ×3 (06:42→20:16)
[2023-08-10] MEDS: oxyCODONE HCL IR 5 MG TAB (IMMEDIATE RELEASE) PO PRN (06:42)
[2023-08-10 06:51] LABS: INR 4.9 (0.9-1.1); Prothrombin Time 48.7 Seconds (9.0-12.0)
[2023-08-10] MEDS: INSULIN ASPART PER UNIT CHARGE SC SCH ×4 (07:50→20:30)
[2023-08-10] MEDS ORDERED: TENOFOVIR ALAFENAMIDE FUMARATE PO SCH (09:00)
[2023-08-10 09:43] LABS: Hematocrit (blood only) 35.6 % (42.0-52.0); Mean Corpuscular Hgb Conc 33.7 g/dL (32.0-36.0); Mean Corpuscular Volume 94.9 fL (80.0-100.0); Mean Platelet Volume 10.6 fL (9.4-12.4); Nucleated RBC # (auto) 0.02 K/uL (0.00-0.12); Nucleated RBC % (auto) 0.2 %; Platelet Count 233 K/uL (130-400); RDW Coefficient of Variation 15.9 % (11.5-14.5); RDW Standard Deviation 54.5 fL (36.4-46.3); Red Blood Count 3.75 M/uL (4.70-6.10); White Blood Count 8.95 K/ul (4.8-10.8)
[2023-08-10 10:02] LABS: BUN Creatinine Ratio 16.8 (10-20); Calcium 6.5 mg/dl (8.6-10.3); Creatinine Clr Calc Pharmacy 63.1 ml/min; Est GFR (African American) 71.5 ml/min; Est GFR (Non-African American) 61.7 ml/min; Phosphorus 2.2 mg/dl (2.5-4.9); Potassium 3.8 mmol/L (3.5-5.1)
[2023-08-10] MEDS: FOLIC ACID 400 MCG TAB PO SCH (10:22)
[2023-08-10] MEDS: DAPSONE 25 MG TAB PO SCH (10:23)
[2023-08-10] MEDS: MIDODRINE HCL 10 MG TAB PO SCH (10:24)
[2023-08-10] MEDS: PANTOprazole 40 MG TAB PO SCH (10:29)
[2023-08-10] MEDS: FINASTERIDE 5 MG TAB PO SCH (10:29)
[2023-08-10] MEDS: CHOLECALCIFEROL 1,000 UNITS 25 MCG TAB PO SCH (10:30)
[2023-08-10] MEDS: MIDODRINE HCL 2.5 MG TAB PO SCH ×2 (13:18→16:22)
[2023-08-10] MEDS ORDERED: POTASSIUM PHOS 3 MMOL/1 ML INFUSION IV STA (15:31)
[2023-08-10] MEDS ORDERED: POTASSIUM PHOSPHATE 9 MMOL in SODIUM CHLORIDE 0.9% 250 ML IV ONE (15:45)
--- NOTE | 2023-08-10 15:47 | Hospitalist Progress Note ---
Date of Service August 10, 2023 Assessment & Plan (1) Acute dehydration: Plan: 53-year-old male with past medical history significant for type 2 diabetes, hyperlipidemia, obstructive sleep apnea, paroxysmal atrial fibrillation, cardiac amyloidosis, multiple myeloma without remission, currently on chemo history of CAD nonocclusive, chronic heart failure with preserved ejection fraction, chronic kidney disease stage III, congenital solitary right kidney, BPH, peripheral neuropathic pain, chemotherapy-induced neuropathy, anxiety, presents with diarrhea and hypotension and electrolyte abnormalities. He is being managed for the following: Acute dehydration Diarrhea Salmonella infection Electrolyte abnormalities Metabolic acidosis Hypotension on presentation improved with the fluids Took a dose of Levaquin in the morning of arrival - changed to Rocephin on admission . Pt still w/ multiple loos stools. Monitor and replete electrolytes, Pedialyte solution by bedside. ID evaluated, will de-escalate to ciprofloxacin 08/10. Continue to monitor, if patient improves then 2-week course of Cipro. Prolonged QTc: Probably from electrolyte abnormalities. Improving. Currently duloxetine and Lexapro on hold. Repeat EKG in AM. History of A-fib: On Coumadin. Was on amiodarone but currently stopped. Follow PT/INR - coumadin on hold due to elevated pt/inr. might need temporary dose reduction of coumadin while on cipro. ONLINE AFFILIATE MARKETING MANAGER coumadin dose 1.25 mg SuSa and 2.5 mg [id number]. History of chronic heart failure preserved ejection fraction Cardiac amyloidosis Currently holding torsemide and home potassium supplement Getting fluids, consider dc when po intake and diarrhea improves Monitor for volume overload History of multiple myeloma: Getting chemo every 2 weeks. Follows with heme-onc Diabetes: Hold home medications. Insulin sliding scale. Follow the blood sugars History of CAD nonocclusive: On Coumadin and Repatha, continue as able. History of orthostatic hypotension: On midodrine Hypothyroidism: On Synthyroid, continue BPH: On finasteride GERD: Protonix and famotidine Obstructive sleep apnea on CPAP nightly CKD stage III/Solitary kidney: Presented with creatinine 1.7 seems to be around baseline. Follow labs DVT PX on Coumadin. Follow pt/ir Disposition: Tele floor Full code. Admission and Anticipated Discharge Date Admission Date: August 09, 2023 Subjective Patient was seen and examined at bedside. Patient was sitting up in bed, on room air, NAD, reports multiple loose/liquidy bowel movements yesterday and overnight. So far 3 bowel movements in the morning. Reports eating okay. Reports feeling weak. Denies fever/chills/headache or dizziness. RN communicated for Pedialyte solution at bedside. Patient denies chest pain or sore throat or cough. Physical Exam Physical Exam: GENERAL: Alert and oriented x3. NAD, on RA. HEENT: No pallor, no icterus. Pupils equal, round and reactive to light. Oral mucosa moist. NECK: No JVD, no neck masses. HEART: S1 and S2 heard. Regular rate and rhythm. No murmur, no gallop. RESPIRATORY SYSTEM: Normal AP diameter. No accessory muscle use. No wheezing, no crackles. ABDOMEN: Soft, bowel sounds present, nontender, no distention. CENTRAL NERVOUS SYSTEM: No facial droop. Speech is clear. Obeys simple commands. Moves extremities. EXTREMITIES: No edema, no erythema seen. Results & Data Results & Data Vital Signs (Past 12 Hours) Vital Signs Temp Pulse Pulse Resp BP Pulse Ox O2 Del Method 08/10/23 11:15 36.6 C 78 18 109/76 94 Room Air 08/10/23 09:00 84 08/10/23 07:52 36.4 C L 85 18 101/68 98 Room Air O2 Flow Rate 08/10/23 11:15 08/10/23 09:00 08/10/23 07:52 2
[2023-08-10] MEDS: TENOFOVIR ALAFENAMIDE FUMARATE PO SCH (16:18)
[2023-08-10] MEDS: ICOSAPENT ETHYL 1 GM PO SCH (16:19)
--- NOTE | 2023-08-10 16:34 | Infectious Disease Consult ---
Date of Service August 10, 2023 Telehealth Information I performed this visit using a real-time telehealth connection between my location and the patients location ([facility]). After connecting through interactive tele-video, patient was identified by name and date of and/or wristband check.Patient (or authorized healthcare inside technical sales representative) was informed that this was a telemedicine visit and it was being conducted confidentially over secure lines. My office door was closed and no one else was present in the room with me.Patient (or authorized healthcare inside technical sales representative) provided consent to proceed with the visit, expressed an understanding of privacy and security of the telemedicine visit, and gave permission to have a hospital inside technical sales representative in the room in order to assist with the visit and to conduct portions of the visit, as needed. I informed the patient (or authorized healthcare inside technical sales representative) that I reviewed their record and presented the opportunity for them to ask any questions regarding the visit today. The patient agreed to participate. Assessment & Plan (1) Salmonella enteritis: (2) Acute dehydration: (3) Multiple myeloma without remission: Plan - Since there is no Hx of travel, I would recommend shifting to PO cipro 500 mg BID today. - Please check his QTc interval and If it's >500, use Bactrim DS BID instead of cipro. - If he continued to improve by tomorrow, can send out on 2 week course of oral cipro or oral Bactrim DS including today. - Thank you for consulting ID. We will sign off for now. History of Present Illness History of Present Illness Mr. Ochoa is a 53-year-old man with medical history of type 2 diabetes, hyperlipidemia, obstructive sleep apnea, paroxysmal A-fib chronic heart failure with preserved ejection fraction, congenital solitary right kidney, BPH, cardiac amyloidosis, and multiple myeloma not in remission and currently on chemotherapy (last chemotherapy was received on 07/29) and chemotherapy-induced neuropathy who was admitted to [facility] on 08/09 because of diarrhea. He mentioned that the diarrhea started around 3 days prior to presentation, around 10-12 bowel movements liquidy stool daily. The condition was associated with generalized body fatigue and recently fever of up to 101.3 F. This prompted him to come to the emergency department where he had a CT scan of the abdomen and pelvis showing only trace abdominopelvic ascites but no other intra- abdominal pathologies. GI pathogen panel was sent which came back positive for Salmonella. ID team was consulted for further recommendations and to help with the management of Salmonella gastroenteritis especially in the setting of receiving chemotherapy for multiple myeloma. Allergies Allergy/AdvReac Type Severity Reaction Status Date / Time NSAIDS (Non-Steroidal AdvReac Advised by Verified 05/06/23 06:17 Anti-Inflamma nephrology to avoid d/t CKD Nzudrlm-HSH-VrK Reductase AdvReac Muscle Pain Verified 05/06/23 06:17 Inhibitor Home Medications Medication Instructions Recorded Confirmed Type acyclovir 400 mg tablet 400 mg PO QPM 05/16/18 08/09/23 History albuterol sulfate 90 mcg/actuation 2 puff inhalation Q6 PRN Cough or 05/16/18 08/09/23 History aerosol inhaler (Ventolin HFA) SOB escitalopram oxalate 10 mg tablet 10 mg PO QAM 05/16/18 08/09/23 History (Lexapro) pantoprazole 20 mg tablet,delayed 20 mg PO QAM 09/02/20 08/09/23 History release (Protonix) potassium chloride 10 mEq 10 meq PO QAM 09/02/20 08/09/23 History tablet,extended release dapsone 25 mg tablet 25 mg PO QAM 02/26/22 08/09/23 History evolocumab 140 mg/mL subcutaneous 140 mg subcut UD 02/26/22 08/09/23 History pen injector (Repatha SureTaranick) folic acid 400 mcg tablet 400 mcg PO QAM 02/26/22 08/09/23 History finasteride 5 mg tablet 5 mg PO QAM 07/24/22 08/09/23 History oxycodone 5 mg tablet 5 mg PO Q6H PRN Pain 07/24/22 08/09/23 History trazodone 50 mg tablet 50 mg PO HS PRN Insomnia 07/24/22 08/09/23 History dexamethasone 4 mg tablet 20 mg PO .TWICE A MONTH 05/02/23 08/09/23 History duloxetine 20 mg capsule,delayed 40 mg PO QAM 05/02/23 08/09/23 History release sprinkle icosapent ethyl 1 gram capsule 2 g PO BID 05/02/23 08/09/23 History (Vascepa) immun glob G 4 gram/20 mL(20 0 ml subcut UD 05/02/23 08/09/23 History %)-prol-IgA 0-50 mcg/mL subcutaneous soln (Hizentra) levothyroxine 50 mcg tablet 50 mcg PO QAM 05/02/23 08/09/23 History torsemide 20 mg tablet 20 mg PO QAM 05/02/23 08/09/23 History levofloxacin 750 mg tablet 750 mg PO Q48H #4 tabs 08/08/23 08/09/23 Rx ondansetron 4 mg disintegrating 4 mg PO Q6H PRN nausea and 08/08/23 08/09/23 Rx tablet vomiting #20 tabs Nss 0.9% W Daratumumab 16mg/Kg 1 dose IV .EVERY 14 DAYS 08/09/23 08/09/23 History acetaminophen 325 mg tablet 325 mg PO UD 08/09/23 08/09/23 History cholecalciferol (vitamin D3) 50 50 mcg PO QAM 08/09/23 08/09/23 History mcg (2,000 unit) tablet (Vitamin D3) diphenhydramine HCl 50 mg capsule 50 mg PO UD 08/09/23 08/09/23 History epinephrine 0.3 mg/0.3 mL 0.3 mg IM UD PRN severe reaction 08/09/23 08/09/23 History injection, auto-injector (EpiPen) famotidine 20 mg tablet 20 mg PO HS 08/09/23 08/09/23 History insulin glargine 100 unit/mL (3 10 unit subcut QPM 08/09/23 08/09/23 History mL) subcutaneous pen (Lantus Solostar U-100 Insulin) metformin 500 mg tablet,extended 1,000 mg PO QAM 08/09/23 08/09/23 History release 24 hr midodrine 10 mg tablet 10 mg PO UD 08/09/23 08/09/23 History ondansetron HCl 8 mg tablet 8 mg PO Q8H PRN Nausea 08/09/23 08/09/23 History tenofovir alafenamide 25 mg tablet 25 mg PO QAM 08/09/23 08/09/23 History (Vemlidy) warfarin 2.5 mg tablet 2.5 mg PO UD 08/09/23 08/09/23 History Patient History Medical History CAD (coronary artery disease) Nonobstructive GERD (gastroesophageal reflux disease) Atrial fibrillation Follows with [facility] [place]/Tim SAUCEDO Low back problem BPH (benign prostatic hyperplasia) CKD (chronic kidney disease) Follows with [facility] [place]/Dr. 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 Amaral [facility] [place] Surgical History History of surgery vasectomy reversal History of surgery Urolift History of vascular access device Right chest port (type unknown) History of cataract surgery History of cardiac cath Right heart cath (2017) History of colonoscopy History of esophagogastroduodenoscopy (EGD) H/O vasectomy Family History Father No problems noted. Mother No problems noted. Other Adopted Social History Smoking Status: Never smoker Tobacco Type: Cigarettes Second Hand Exposure: Yes (as a child); Do You Dip or Chew Tobacco: Yes (1 pouch per day); Hx Alcohol Use: No Hx Substance Use: No Preferred Language: Amharic Communication Ability: Effective Cellar Pumper Required: No Beliefs That Will Affect Care: None marital status: marital status details: twice - 3 children in total between the 2 marriages Current Living Situation: Spouse Current Living Situation Comment: lives in [place] current occupational status: disabled current occupation: previously worked at [employer] Other Information That Helps Us Care for You: No Feels Safe at Home: Yes Safety Concerns: Feels Safe At This Time Assistive Devices: Cane and CPAP Review of Systems Constitutional: Fatigue, but no fever or chills. HEENT: no sore throat, no nasal discharge Cardiovascular: no chest pain, or palpitations Respiratory: no shortness of breath, no cough Gastrointestinal: abdominal pain and diarrhea but No nausea, vomiting : No dysuria or hesitancy, no urinary discharge Musculoskeletal/Skin: No muscle aches or rash Neurologic: no dizziness or headache Physical Exam Couldn't be obtained as the consult was performed via telemed. Results & Data Vital Signs (Past 12 Hours) Vital Signs Temp Pulse Pulse Resp BP Pulse Ox O2 Del Method 08/10/23 15:39 36.9 C 77 18 109/67 97 Room Air 08/10/23 11:15 36.6 C 78 18 109/76 94 Room Air 08/10/23 09:00 84 08/10/23 07:52 36.4 C L 85 18 101/68 98 Room Air O2 Flow Rate 08/10/23 15:39 08/10/23 11:15 08/10/23 09:00 08/10/23 07:[address] abd/pelvis on 08/08: 1. Liquid stool seen throughout the colon. Correlate clinically from severe diarrhea illness. 2. Numerous osteolytic bone lesions and a mesenteric mass lesion are similar to previous. 3. Markedly asymmetric cortical atrophy of left kidney as compared to the right is unchanged. 4. Cardiomegaly and small right pleural effusion. This is similar to previous. 5. Mild splenomegaly. 6. Trace abdominopelvic ascites. 7. Mild and age indeterminate superior end plate compression deformity of T12, which is new from the 07/24/[address] Correlate clinically. Diagnostic Findings 08/08: GI pathogen panel positive for Salmonella species
[2023-08-10] MEDS: FAMOTIDINE 20 MG TAB PO SCH (20:19)
[2023-08-10] MEDS: CIPROFLOXACIN 500 MG TAB PO SCH (20:19)
[2023-08-10] MEDS: ACYCLOVIR 400 MG TAB PO SCH (20:19)
[2023-08-11] MEDS: SODIUM CHLORIDE 0.9% 1,000 ML IV SCH ×2 (01:44→09:31)
[2023-08-11] MEDS: LEVOTHYROXINE SODIUM 50 MCG TABLET PO SCH (06:08)
[2023-08-11 06:40] LABS: Hematocrit (blood only) 36.6 % (42.0-52.0); Hemoglobin 12.2 g/dl (14.0-18.0); Mean Corpuscular Hemoglobin 31.5 pg (25.0-34.0); Mean Corpuscular Hgb Conc 33.3 g/dL (32.0-36.0); Mean Corpuscular Volume 94.6 fL (80.0-100.0); Mean Platelet Volume 10.6 fL (9.4-12.4); Nucleated RBC # (auto) 0.02 K/uL (0.00-0.12); Nucleated RBC % (auto) 0.3 %; Platelet Count 253 K/uL (130-400); RDW Coefficient of Variation 16.2 % (11.5-14.5); RDW Standard Deviation 56.9 fL (36.4-46.3); Red Blood Count 3.87 M/uL (4.70-6.10); White Blood Count 7.46 K/ul (4.8-10.8)
[2023-08-11 07:00] LABS: Calcium 6.3 mg/dl (8.6-10.3); Creatinine Clr Calc Pharmacy 62.1 ml/min; Est GFR (African American) 70.2 ml/min; Est GFR (Non-African American) 60.6 ml/min; Potassium 3.8 mmol/L (3.5-5.1)
[2023-08-11 07:16] LABS: Prothrombin Time 58.2 Seconds (9.0-12.0)
[2023-08-11] MEDS ORDERED: PHYTONADIONE 5 MG TAB PO STA (07:42)
[2023-08-11] MEDS: INSULIN ASPART PER UNIT CHARGE SC SCH ×4 (07:47→20:20)
[2023-08-11] MEDS ORDERED: POTASSIUM PHOS 3 MMOL/1 ML INFUSION IV STA (07:59)
[2023-08-11] MEDS ORDERED: POTASSIUM PHOSPHATE 15 MMOL in SODIUM CHLORIDE 0.9% 250 ML IV ONE (08:30)
[2023-08-11] MEDS ORDERED: TENOFOVIR ALAFENAMIDE FUMARATE PO SCH (09:00)
[2023-08-11] MEDS: DAPSONE 25 MG TAB PO SCH (09:33)
[2023-08-11] MEDS: CIPROFLOXACIN 500 MG TAB PO SCH ×2 (09:33→20:30)
[2023-08-11] MEDS: FINASTERIDE 5 MG TAB PO SCH (09:34)
[2023-08-11] MEDS: PANTOprazole 40 MG TAB PO SCH (09:34)
[2023-08-11] MEDS: FOLIC ACID 400 MCG TAB PO SCH (09:34)
[2023-08-11] MEDS: MIDODRINE HCL 10 MG TAB PO SCH (09:34)
[2023-08-11] MEDS: CHOLECALCIFEROL 1,000 UNITS 25 MCG TAB PO SCH (09:34)
[2023-08-11] MEDS: DULoxetine HCL 20 MG CAP PO SCH (09:35)
[2023-08-11] MEDS: TENOFOVIR ALAFENAMIDE FUMARATE PO SCH (09:35)
[2023-08-11] MEDS: ICOSAPENT ETHYL 1 GM PO SCH ×2 (09:36→16:50)
[2023-08-11] MEDS: MIDODRINE HCL 2.5 MG TAB PO SCH ×2 (12:18→16:50)
--- NOTE | 2023-08-11 14:02 | Electrocardiogram Report ---
Test Reason : Blood Pressure : / mmHG Vent. Rate : 079 BPM Atrial Rate : 079 BPM P-R Int : 186 ms QRS Dur : 098 ms QT Int : 432 ms P-R-T Axes : 054 096 -80 degrees QTc Int : 495 ms Normal sinus rhythm Low voltage QRS Possible Lateral infarct , age undetermined ST segement changes consistent with ischemia Abnormal ECG When compared with ECG of 09-AUG-2023 05:54, Borderline criteria for Lateral infarct are now Present Nonspecific T wave abnormality, improved in Lateral leads Confirmed by Santiago Johnson ([id number]) on 08/11/2023 2:01:59 PM Referred By: REFERRED SELF Confirmed By:David Johnson
[2023-08-11] MEDS ORDERED: STAT IV/IM STA (15:18)
[2023-08-11] MEDS ORDERED: CALCIUM GLUCONATE 10% 1,000 MG in SODIUM CHLOR 0.9% MINI-B 50 ML IV ONE (15:18)
--- NOTE | 2023-08-11 15:28 | Hospitalist Progress Note ---
Date of Service August 11, 2023 Assessment & Plan (1) Acute dehydration: Plan: 53-year-old male with past medical history significant for type 2 diabetes, hyperlipidemia, obstructive sleep apnea, paroxysmal atrial fibrillation, cardiac amyloidosis, multiple myeloma without remission, currently on chemo history of CAD nonocclusive, chronic heart failure with preserved ejection fraction, chronic kidney disease stage III, congenital solitary right kidney, BPH, peripheral neuropathic pain, chemotherapy-induced neuropathy, anxiety, presents with diarrhea and hypotension and electrolyte abnormalities. He is being managed for the following: Acute dehydration Diarrhea Salmonella infection Electrolyte abnormalities Metabolic acidosis Hypotension on presentation improved with the fluids Took a dose of Levaquin in the morning of arrival - changed to Rocephin on admission . Pt still w/ multiple loos stools but now decreasing freq of stools. Monitor and replete electrolytes, Pedialyte solution by bedside. ID evaluated, appreciate recs. Continue to monitor, if patient improves then 2-week course of Cipro 08/10. on ivf d/t mutliple loose stools; dc ivf once diarrhea resolves. decrease rate of ivf today. Prolonged QTc: Probably from electrolyte abnormalities. Improving. Currently Lexapro on hold. Repeat EKG in AM. History of A-fib/supratherapeutic INR: On Coumadin. Was on amiodarone but currently stopped. Follow PT/INR - coumadin on hold due to elevated pt/inr. might need temporary dose reduction of coumadin while on cipro. [employer]ER coumadin dose 1.25 mg SuSa and 2.5 mg MoTuWeThFr. INR remains elevated, given 2.5 mg po vit K, no signs of bleeding. PT/INR in AM. History of chronic heart failure preserved ejection fraction Cardiac amyloidosis Currently holding torsemide and home potassium supplement Getting fluids, consider dc when po intake and diarrhea improves Monitor for volume overload History of multiple myeloma: Getting chemo every 2 weeks. Follows with heme-onc Diabetes: Hold home medications. Insulin sliding scale. Follow the blood sugars History of CAD nonocclusive: On Coumadin and Repatha, continue as able. History of orthostatic hypotension: On midodrine Hypothyroidism: On Synthyroid, continue BPH: On finasteride GERD: Protonix and famotidine Obstructive sleep apnea on CPAP nightly CKD stage III/Solitary kidney: Presented with creatinine 1.7 seems to be around baseline. Follow labs DVT PX on Coumadin. Follow pt/ir Disposition: Tele floor Full code. Admission and Anticipated Discharge Date Admission Date: August 09, 2023 Subjective Patient was seen and examined at bedside. Patient was lying in bed, on room air, NAD, reports multiple loose/liquidy bowel movements yesterday and overnight but reports frequency decreasing. Reports eating okay, wants to advance diet, communicated w/ RN to adv diet as eze. Reports feeling weak and tired. Denies fever/chills/headache or dizziness. Patient denies chest pain or sore throat or cough. Physical Exam Physical Exam: GENERAL: Alert and oriented x3. NAD, on RA. looks tired/weak. HEENT: No pallor, no icterus. Pupils equal, round and reactive to light. Oral mucosa moist. NECK: No JVD, no neck masses. HEART: S1 and S2 heard. Regular rate and rhythm. No murmur, no gallop. RESPIRATORY SYSTEM: Normal AP diameter. No accessory muscle use. No wheezing, no crackles. ABDOMEN: Soft, bowel sounds present, nontender, no distention. CENTRAL NERVOUS SYSTEM: No facial droop. Speech is clear. Obeys simple commands. Moves extremities. EXTREMITIES: No edema, no erythema seen. Results & Data Results & Data Vital Signs (Past 12 Hours) Vital Signs Temp Pulse Pulse Resp BP Pulse Ox O2 Del Method 08/11/23 15:17 36.6 C 80 18 129/87 98 Room Air 08/11/23 12:12 36.8 C 83 18 119/78 98 Room Air 08/11/23 11:30 79 08/11/23 08:07 36.0 C L 77 18 109/81 100 Oxyhood 08/11/23 05:00 80 08/11/23 03:41 79 20 O2 Flow Rate 08/11/23 15:17 08/11/23 12:12 08/11/23 11:30 08/11/23 08:07 08/11/23 05:00 08/11/23 03:41 2
[2023-08-11] MEDS: SODIUM CHLORIDE 0.45 % 1,000 ML IV SCH ×2 (15:36→16:56)
[2023-08-11] MEDS: PROMETHAZINE HCL 6.25 MG in SODIUM CHLORIDE 0.9% 50 ML IV PRN (16:51)
[2023-08-11] MEDS: FAMOTIDINE 20 MG TAB PO SCH (20:29)
[2023-08-11] MEDS: ACYCLOVIR 400 MG TAB PO SCH (20:29)
[2023-08-12] MEDS ORDERED: POTASSIUM CHLORIDE CRTAB 20 MEQ TABCR PO STA (03:34)
--- NOTE | 2023-08-12 03:36 | Communication Note ---
Date of Service: August 12, 2023 Patient with NSVT episode as per RN. Patient asymptomatic during episode. AP NSVT Ongoing ciprofloxacin Rx for Salmonella, mild QTc prolongation on 08/11 EKG Check electrolytes, supplement K and mag as needed Bactrim in place of ciprofloxacin for Salmonella in light of QTc prolongation/NSVT
[2023-08-12] MEDS ORDERED: POTASSIUM CHLORIDE 20 MEQ in LACTATED RINGER'S 1,000 ML IV ONE (04:00)
[2023-08-12 04:51] LABS: Basophils # (auto) 0.02 K/uL (0.00-0.20); Basophils % (auto) 0.3 %; Eosinophils # (auto) 0.16 K/uL (0.00-0.50); Eosinophils % (auto) 2.1 %; Hematocrit (blood only) 34.2 % (42.0-52.0); Hemoglobin 11.8 g/dl (14.0-18.0); Immature Granulocytes # (auto) 0.08 K/uL (0.01-0.20); Immature Granulocytes % (auto) 1.1 %; Lymphocytes # (auto) 0.14 K/uL (1.20-3.40); Lymphocytes % (auto) 1.9 %; Mean Corpuscular Hemoglobin 31.8 pg (25.0-34.0); Mean Corpuscular Hgb Conc 34.5 g/dL (32.0-36.0); Mean Corpuscular Volume 92.2 fL (80.0-100.0); Mean Platelet Volume 10.6 fL (9.4-12.4); Monocytes # (auto) 1.16 K/uL (0.11-0.59); Monocytes % (auto) 15.4 %; Neutrophils # (auto) 5.97 K/uL (1.40-6.50); Neutrophils % (auto) 79.2 %; Nucleated RBC # (auto) 0.02 K/uL (0.00-0.12); Nucleated RBC % (auto) 0.3 %; Platelet Count 238 K/uL (130-400); RDW Coefficient of Variation 16.6 % (11.5-14.5); RDW Standard Deviation 56.8 fL (36.4-46.3); Red Blood Count 3.71 M/uL (4.70-6.10); White Blood Count 7.53 K/ul (4.8-10.8)
[2023-08-12 05:07] LABS: BUN Creatinine Ratio 12.8 (10-20); Calcium 6.1 mg/dl (8.6-10.3); Creatinine Clr Calc Pharmacy 66.1 ml/min; Est GFR (African American) 75.7 ml/min; Est GFR (Non-African American) 65.3 ml/min; Magnesium 1.8 mg/dl (1.7-2.4); Phosphorus 1.6 mg/dl (2.5-4.9); Potassium 3.6 mmol/L (3.5-5.1)
[2023-08-12] MEDS ORDERED: MAGNESIUM SULFATE / D5W 1 GM/100 ML BAG IV ONE ×3 (05:30→16:07)
[2023-08-12 05:37] LABS: INR 6.4 (0.9-1.1)
[2023-08-12] MEDS ORDERED: PHYTONADIONE 5 MG TAB PO STA (05:41)
[2023-08-12] MEDS: LEVOTHYROXINE SODIUM 50 MCG TABLET PO SCH (05:43)
[2023-08-12] MEDS: INSULIN ASPART PER UNIT CHARGE SC SCH ×4 (07:32→22:06)
[2023-08-12] MEDS ORDERED: PHYTONADIONE 2.5 MG in DEXTROSE 5% 50 ML IV ONE (07:56)
[2023-08-12] MEDS ORDERED: STAT IV/IM STA (08:02)
[2023-08-12] MEDS ORDERED: CALCIUM GLUCONATE 10% 1,000 MG in SODIUM CHLOR 0.9% MINI-B 50 ML IV ONE (08:02)
[2023-08-12] MEDS ORDERED: POTASSIUM PHOS 3 MMOL/1 ML INFUSION IV STA ×2 (08:02→16:07)
[2023-08-12] MEDS ORDERED: POTASSIUM PHOSPHATE 21 MMOL in SODIUM CHLORIDE 0.9% 500 ML IV ONE (08:15)
[2023-08-12] MEDS: PROMETHAZINE HCL 6.25 MG in SODIUM CHLORIDE 0.9% 50 ML IV PRN (09:23)
[2023-08-12] MEDS: MIDODRINE HCL 10 MG TAB PO SCH (09:32)
[2023-08-12] MEDS: PANTOprazole 40 MG TAB PO SCH (09:32)
[2023-08-12] MEDS: CHOLECALCIFEROL 1,000 UNITS 25 MCG TAB PO SCH (09:32)
[2023-08-12] MEDS: SULFAMETHOXAZOLE/TRIMETHOPRIM DS 800/160MG TAB PO SCH ×2 (09:32→20:45)
[2023-08-12] MEDS: FINASTERIDE 5 MG TAB PO SCH (09:32)
[2023-08-12] MEDS: DULoxetine HCL 20 MG CAP PO SCH (09:32)
[2023-08-12] MEDS: FOLIC ACID 400 MCG TAB PO SCH (09:33)
[2023-08-12] MEDS: DAPSONE 25 MG TAB PO SCH (09:33)
[2023-08-12] MEDS: TENOFOVIR ALAFENAMIDE FUMARATE PO SCH (09:34)
[2023-08-12] MEDS: ICOSAPENT ETHYL 1 GM PO SCH ×2 (09:35→16:44)
[2023-08-12] MEDS: MIDODRINE HCL 2.5 MG TAB PO SCH ×2 (13:32→16:42)
[2023-08-12 16:00] LABS: BUN Creatinine Ratio 11.3 (10-20); Calcium 6.4 mg/dl (8.6-10.3); Creatinine Clr Calc Pharmacy 71.9 ml/min; Est GFR (African American) 83.7 ml/min; Est GFR (Non-African American) 72.3 ml/min; Magnesium 1.8 mg/dl (1.7-2.4); Phosphorus 2.4 mg/dl (2.5-4.9); Potassium 4.3 mmol/L (3.5-5.1)
[2023-08-12 16:11] LABS: INR 2.4 (0.9-1.1); Prothrombin Time 25.2 Seconds (9.0-12.0)
--- NOTE | 2023-08-12 16:16 | Hospitalist Progress Note ---
Date of Service August 12, 2023 Assessment & Plan (1) Acute dehydration: Plan: 53-year-old male with past medical history significant for type 2 diabetes, hyperlipidemia, obstructive sleep apnea, paroxysmal atrial fibrillation, cardiac amyloidosis, multiple myeloma without remission, currently on chemo history of CAD nonocclusive, chronic heart failure with preserved ejection fraction, chronic kidney disease stage III, congenital solitary right kidney, BPH, peripheral neuropathic pain, chemotherapy-induced neuropathy, anxiety, presents with diarrhea and hypotension and electrolyte abnormalities. He is being managed for the following: Acute dehydration Diarrhea Salmonella infection Electrolyte abnormalities Metabolic acidosis Hypotension on presentation improved with the fluids Took a dose of Levaquin in the morning of arrival - changed to Rocephin on admission . Pt still w/ multiple loos stools but now decreasing freq of stools. Electrolytes repleted, BMP repeated around 3 PM, again electrolytes repleted. Pedialyte solution by bedside. ID evaluated, appreciate recs. Continue to monitor, if patient improves then 2-week course of Cipro 08/10 --> Bactrim 08/12 [due to prolonged QTc] on ivf d/t mutliple loose stools; dc ivf once diarrhea resolves. decrease rate of ivf today. Prolonged QTc: Probably from electrolyte abnormalities. QTc prolonged again today, will change Cipro to Bactrim 08/12. Currently Lexapro on hold. Repeat EKG in AM. History of A-fib/supratherapeutic INR: On Coumadin. Was on amiodarone few months back per patient. Follow PT/INR - coumadin on hold due to elevated pt/inr. might need temporary dose reduction of coumadin while on antibiotic. 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 INR remains elevated, given 2.5 mg IV vit K, no signs of bleeding. PT/INR in AM. Follow up inr in after 2.4. History of chronic heart failure preserved ejection fraction Cardiac amyloidosis Currently holding torsemide and home potassium supplement Getting fluids, consider dc when po intake and diarrhea improves Monitor for volume overload History of multiple myeloma: Getting chemo every 2 weeks. Follows with heme-onc Diabetes: Hold home medications. Insulin sliding scale. Follow the blood sugars History of CAD nonocclusive: On Coumadin and Repatha, continue as able. History of orthostatic hypotension: On midodrine Hypothyroidism: On Synthyroid, continue BPH: On finasteride GERD: Protonix and famotidine Obstructive sleep apnea on CPAP nightly CKD stage III/Solitary kidney: Presented with creatinine 1.7 seems to be around baseline. Follow labs. Cr now better than his baseline. DVT PX on Coumadin. Follow pt/ir Disposition: Tele floor Full code. Admission and Anticipated Discharge Date Admission Date: August 09, 2023 Subjective Patient was seen and examined at bedside. Patient was lying in bed, on room air, NAD, reports decreasing frequency of bowel movement but is a still liquidy per patient. Reports eating okay, but does not want to advance from full diet for now, communicated w/ RN to adv diet as eze. Reports feeling weak and tired again today, will consult PT/OT. Ove rnight had 18 beats of V. tach, asymptomatic, patient was sleeping and unaware. Denies fever/chills/headache or dizziness. Patient denies chest pain or sore throat or cough. Physical Exam Physical Exam: GENERAL: Alert and oriented x3. NAD, on RA. looks tired/weak. HEENT: No pallor, no icterus. Pupils equal, round and reactive to light. Oral mucosa moist. NECK: No JVD, no neck masses. HEART: S1 and S2 heard. Regular rate and rhythm. No murmur, no gallop. RESPIRATORY SYSTEM: Normal AP diameter. No accessory muscle use. No wheezing, no crackles. ABDOMEN: Soft, bowel sounds present, nontender, no distention. CENTRAL NERVOUS SYSTEM: No facial droop. Speech is clear. Obeys simple co mmands. Moves extremities. EXTREMITIES: No edema, no erythema seen. Results & Data Results & Data Vital Signs (Past 12 Hours) Vital Signs Temp Pulse Pulse Resp BP Pulse Ox O2 Del Method 08/12/23 15:15 36.8 C 73 18 117/79 97 Room Air 08/12/23 10:55 36.5 C 74 18 113/76 97 Room Air 08/12/23 09:00 77 08/12/23 09:00 Room Air 08/12/23 07:13 36.6 C 78 17 117/83 93 Room Air
[2023-08-12] MEDS ORDERED: POTASSIUM PHOSPHATE 15 MMOL in SODIUM CHLORIDE 0.9% 250 ML IV ONE (16:30)
--- NOTE | 2023-08-12 17:35 | Electrocardiogram Report ---
Test Reason : Blood Pressure : / mmHG Vent. Rate : 076 BPM Atrial Rate : 076 BPM P-R Int : 200 ms QRS Dur : 116 ms QT Int : 452 ms P-R-T Axes : 033 096 -84 degrees QTc Int : 508 ms Normal sinus rhythm Possible Left atrial enlargement Rightward axis Low voltage QRS Poor R wave progression, consider anterior GA vs. lead placement vs. LVH Prolonged QT Abnormal ECG When compared with ECG of 11-AUG-2023 05:02, (unconfirmed) Sinus rhythm has replaced Atrial flutter Confirmed by Santiago Johnson ([id number]) on 08/12/2023 5:35:03 PM Referred By: REFERRED SELF Confirmed By:David Johnson
--- NOTE | 2023-08-12 18:06 | Electrocardiogram Report ---
Test Reason : Blood Pressure : / mmHG Vent. Rate : 073 BPM Atrial Rate : 312 BPM P-R Int : 000 ms QRS Dur : 108 ms QT Int : 428 ms P-R-T Axes : 032 091 242 degrees QTc Int : 471 ms Sinus rhythm Low voltage QRS possible Lateral infarct (cited on or before 08-AUG-2023) Abnormal ECG When compared with ECG of 10-AUG-2023 17:56, (unconfirmed) T wave inversion now evident in Lateral leads Confirmed by Santiago Johnson ([id number] on 08/12/2023 6:06:19 PM Referred By: REFERRED SELF Confirmed By:David Johnson
[2023-08-12] MEDS: ACYCLOVIR 400 MG TAB PO SCH (20:45)
[2023-08-12] MEDS: CALCIUM CARBONATE 1,250 MG/5 ML UDC PO SCH (20:45)
[2023-08-12] MEDS: FAMOTIDINE 20 MG TAB PO SCH (20:45)
[2023-08-13 04:53] LABS: Basophils # (auto) 0.03 K/uL (0.00-0.20); Basophils % (auto) 0.4 %; Eosinophils # (auto) 0.15 K/uL (0.00-0.50); Eosinophils % (auto) 1.8 %; Hematocrit (blood only) 33.9 % (42.0-52.0); Hemoglobin 11.8 g/dl (14.0-18.0); Immature Granulocytes # (auto) 0.13 K/uL (0.01-0.20); Immature Granulocytes % (auto) 1.6 %; Lymphocytes % (auto) 2.4 %; Mean Corpuscular Hemoglobin 31.8 pg (25.0-34.0); Mean Corpuscular Hgb Conc 34.8 g/dL (32.0-36.0); Mean Corpuscular Volume 91.4 fL (80.0-100.0); Mean Platelet Volume 10.7 fL (9.4-12.4); Monocytes # (auto) 1.21 K/uL (0.11-0.59); Monocytes % (auto) 14.7 %; Neutrophils % (auto) 79.1 %; Platelet Count 245 K/uL (130-400); Red Blood Count 3.71 M/uL (4.70-6.10); White Blood Count 8.22 K/ul (4.8-10.8)
[2023-08-13 05:04] LABS: BUN Creatinine Ratio 10.3 (10-20); Calcium 6.6 mg/dl (8.6-10.3); Creatinine Clr Calc Pharmacy 71.3 ml/min; Est GFR (African American) 82.9 ml/min; Est GFR (Non-African American) 71.5 ml/min; Magnesium 1.9 mg/dl (1.7-2.4); Phosphorus 2.2 mg/dl (2.5-4.9); Potassium 4.1 mmol/L (3.5-5.1)
[2023-08-13 05:12] LABS: INR 1.4 (0.9-1.1); Prothrombin Time 15.1 Seconds (9.0-12.0)
[2023-08-13] MEDS ORDERED: MAGNESIUM SULFATE / D5W 1 GM/100 ML BAG IV ONE (05:44)
[2023-08-13] MEDS: LEVOTHYROXINE SODIUM 50 MCG TABLET PO SCH (06:06)
[2023-08-13] MEDS ORDERED: STAT IV/IM STA (07:48)
[2023-08-13] MEDS ORDERED: CALCIUM GLUCONATE 10% 1,000 MG in SODIUM CHLOR 0.9% MINI-B 50 ML IV ONE (07:48)
[2023-08-13] MEDS ORDERED: POTASSIUM PHOS 3 MMOL/1 ML INFUSION IV STA (07:48)
[2023-08-13] MEDS ORDERED: POTASSIUM PHOSPHATE 21 MMOL in SODIUM CHLORIDE 0.9% 500 ML IV ONE (08:00)
[2023-08-13] MEDS: INSULIN ASPART PER UNIT CHARGE SC SCH ×4 (08:51→21:11)
[2023-08-13] MEDS: MIDODRINE HCL 10 MG TAB PO SCH (08:57)
[2023-08-13] MEDS: SULFAMETHOXAZOLE/TRIMETHOPRIM DS 800/160MG TAB PO SCH ×2 (08:57→21:13)
[2023-08-13] MEDS: CALCIUM CARBONATE 1,250 MG/5 ML UDC PO SCH ×2 (08:58→21:08)
[2023-08-13] MEDS: DULoxetine HCL 20 MG CAP PO SCH (08:58)
[2023-08-13] MEDS: PANTOprazole 40 MG TAB PO SCH (08:58)
[2023-08-13] MEDS: CHOLECALCIFEROL 1,000 UNITS 25 MCG TAB PO SCH (08:59)
[2023-08-13] MEDS: DAPSONE 25 MG TAB PO SCH (08:59)
[2023-08-13] MEDS: FOLIC ACID 400 MCG TAB PO SCH (09:00)
[2023-08-13] MEDS: FINASTERIDE 5 MG TAB PO SCH (09:01)
[2023-08-13] MEDS: TENOFOVIR ALAFENAMIDE FUMARATE PO SCH (09:01)
[2023-08-13] MEDS: ICOSAPENT ETHYL 1 GM PO SCH ×2 (09:02→16:48)
[2023-08-13] MEDS: oxyCODONE HCL IR 5 MG TAB (IMMEDIATE RELEASE) PO PRN (09:11)
[2023-08-13] MEDS: MIDODRINE HCL 2.5 MG TAB PO SCH ×2 (13:02→16:43)
--- NOTE | 2023-08-13 15:17 | Hospitalist Progress Note ---
Date of Service August 13, 2023 Assessment & Plan (1) Acute dehydration: Plan: 53-year-old male with past medical history significant for type 2 diabetes, hyperlipidemia, obstructive sleep apnea, paroxysmal atrial fibrillation, cardiac amyloidosis, multiple myeloma without remission, currently on chemo history of CAD nonocclusive, chronic heart failure with preserved ejection fraction, chronic kidney disease stage III, congenital solitary right kidney, BPH, peripheral neuropathic pain, chemotherapy-induced neuropathy, anxiety, presents with diarrhea and hypotension and electrolyte abnormalities. He is being managed for the following: Acute dehydration Diarrhea Salmonella infection Electrolyte abnormalities Metabolic acidosis Hypotension on presentation improved with the fluids Took a dose of Levaquin in the morning of arrival - changed to Rocephin on admission . Significantly decreased freq of stools but still liquidy per pt, adding psyllium to bulk, advanced diet. Will follow. C/w pedialyte hedy by bedside. ID evaluated, appreciate recs. Continue to monitor, if patient improves then 2-week course of Cipro 08/10 --> Bactrim 08/12 [due to prolonged QTc] DC IVF, some pedal swelling noted today. Monitor and replete lytes, calcium and phosphorous replaced today. Labs in AM. Prolonged QTc: Probably from electrolyte abnormalities. QTc prolonged again 08/12, changed Cipro to Bactrim 08/12. Currently Lexapro on hold. Repeat EKG in AM - QTc improved 08/13. History of A-fib/supratherapeutic INR: On Coumadin. Was on amiodarone few months back per patient. Follow PT/INR - initially coumadin on hold due to elevated pt/inr. might need temporary dose reduction of coumadin while on antibiotic. INS[employer]OR [employer]CLE coumadin dose 1.25 mg daily per patient. resuming coumadin at decreased dose of 1 mg daily, follow Pt/inr. History of chronic heart failure preserved ejection fraction Cardiac amyloidosis Currently holding torsemide and home potassium supplement Getting fluids, consider dc when po intake and diarrhea improves Monitor for volume overload History of multiple myeloma: Getting chemo every 2 weeks. Follows with heme-onc Diabetes: Hold home medications. Insulin sliding scale. Follow the blood sugars History of CAD nonocclusive: On Coumadin and Repatha, continue as able. History of orthostatic hypotension: On midodrine Hypothyroidism: On Synthyroid, continue BPH: On finasteride GERD: Protonix and famotidine Obstructive sleep apnea on CPAP nightly CKD stage III/Solitary kidney: Presented with creatinine 1.7 seems to be around baseline. Follow labs. Cr now better than his baseline. DVT PX on Coumadin. Follow pt/ir Disposition: Tele floor Full code. Admission and Anticipated Discharge Date Admission Date: August 09, 2023 Subjective Patient was seen and examined at bedside. Patient was sitting up in bed, on room air, NAD, reports 1 BM overnight and 1 in AM both liquidy per him, will add bulking agent, adv diet as eze, will follow. Reports some improvement in his weakness and tiredness he had yesterday. Denies fever/chills/headache or dizziness. Patient denies chest pain or sore throat or cough. Physical Exam Physical Exam: GENERAL: Alert and oriented x3. NAD, on RA. HEENT: No pallor, no icterus. Pupils equal, round and reactive to light. Oral mucosa moist. NECK: No JVD, no neck masses. HEART: S1 and S2 heard. Regular rate and rhythm. No murmur, no gallop. RESPIRATORY SYSTEM: Normal AP diameter. No accessory muscle use. No wheezing, no crackles. ABDOMEN: Soft, bowel sounds present, nontender, no distention. CENTRAL NERVOUS SYSTEM: No facial droop. Speech is clear. Obeys simple commands. Moves extremities. EXTREMITIES: Pedal edema 1+, no erythema seen. Results & Data Results & Data Vital Signs (Past 12 Hours) Vital Signs Temp Pulse Resp BP Pulse Ox O2 Del Method 08/13/23 11:15 36.9 C 78 19 133/88 98 Room Air 08/13/23 07:10 37.2 C 74 18 103/67 98 Room Air
[2023-08-13] MEDS ORDERED: WARFARIN SOD 1.25 MG TAB PO SCH (16:00)
[2023-08-13] MEDS: ADVANCED PROBIOTIC 1250 MG CAPSULE PO SCH (16:44)
[2023-08-13] MEDS: PSYLLIUM or GUAR GUM FIBER POWDER PACKET PO SCH (16:45)
[2023-08-13] MEDS: WARFARIN SOD 1 MG TAB PO SCH (16:47)
[2023-08-13] MEDS: PROMETHAZINE HCL 6.25 MG in SODIUM CHLORIDE 0.9% 50 ML IV PRN (19:20)
[2023-08-13] MEDS: FAMOTIDINE 20 MG TAB PO SCH (21:09)
[2023-08-13] MEDS: ACYCLOVIR 400 MG TAB PO SCH (21:12)
[2023-08-14] MEDS: LEVOTHYROXINE SODIUM 50 MCG TABLET PO SCH (06:01)
[2023-08-14 07:10] LABS: BUN Creatinine Ratio 7.1 (10-20); Calcium 6.5 mg/dl (8.6-10.3); Creatinine Clr Calc Pharmacy 73.8 ml/min; Est GFR (African American) 86.5 ml/min; Est GFR (Non-African American) 74.6 ml/min; Phosphorus 1.9 mg/dl (2.5-4.9); Potassium 4.9 mmol/L (3.5-5.1)
[2023-08-14 07:21] LABS: INR 1.3 (0.9-1.1); Prothrombin Time 13.8 Seconds (9.0-12.0)
[2023-08-14] MEDS ORDERED: CALCIUM GLUCONATE 10% 1,000 MG in SODIUM CHLOR 0.9% MINI-B 50 ML IV ONE (07:33)
[2023-08-14] MEDS ORDERED: STAT IV/IM STA (07:33)
[2023-08-14] MEDS ORDERED: SODIUM PHOSPHATE 3 MMOL/1 ML INFUSION IV STA (07:33)
[2023-08-14] MEDS ORDERED: SODIUM PHOSPHATE 21 MMOL in DEXTROSE 5% 500 ML IV ONE (07:45)
[2023-08-14] MEDS: INSULIN ASPART PER UNIT CHARGE SC SCH ×4 (08:01→22:10)
[2023-08-14] MEDS: FINASTERIDE 5 MG TAB PO SCH (08:38)
[2023-08-14] MEDS: ADVANCED PROBIOTIC 1250 MG CAPSULE PO SCH (08:38)
[2023-08-14] MEDS: PSYLLIUM or GUAR GUM FIBER POWDER PACKET PO SCH ×2 (08:39→21:36)
[2023-08-14] MEDS: SULFAMETHOXAZOLE/TRIMETHOPRIM DS 800/160MG TAB PO SCH ×2 (08:39→21:31)
[2023-08-14] MEDS: CHOLECALCIFEROL 1,000 UNITS 25 MCG TAB PO SCH (08:40)
[2023-08-14] MEDS: DAPSONE 25 MG TAB PO SCH (08:40)
[2023-08-14] MEDS: PANTOprazole 40 MG TAB PO SCH (08:41)
[2023-08-14] MEDS: MIDODRINE HCL 10 MG TAB PO SCH (08:41)
[2023-08-14] MEDS: DULoxetine HCL 20 MG CAP PO SCH (08:41)
[2023-08-14] MEDS: ICOSAPENT ETHYL 1 GM PO SCH ×2 (08:42→17:19)
[2023-08-14] MEDS: CALCIUM CARBONATE 1,250 MG/5 ML UDC PO SCH ×2 (08:42→21:30)
[2023-08-14] MEDS: FOLIC ACID 400 MCG TAB PO SCH (08:42)
[2023-08-14] MEDS: TENOFOVIR ALAFENAMIDE FUMARATE PO SCH (08:42)
[2023-08-14] MEDS: oxyCODONE HCL IR 5 MG TAB (IMMEDIATE RELEASE) PO PRN (08:56)
[2023-08-14] MEDS: HEPARIN SOD 5,000 UNIT/0.5 ML VIAL SQ SCH ×2 (10:17→21:37)
[2023-08-14] MEDS: MIDODRINE HCL 2.5 MG TAB PO SCH ×2 (12:15→17:19)
--- NOTE | 2023-08-14 13:11 | Electrocardiogram Report ---
Test Reason : Blood Pressure : / mmHG Vent. Rate : 080 BPM Atrial Rate : 080 BPM P-R Int : 182 ms QRS Dur : 098 ms QT Int : 428 ms P-R-T Axes : 026 113 -60 degrees QTc Int : 493 ms Normal sinus rhythm Right axis deviation Septal infarct (cited on or before 13-AUG-2023) Abnormal ECG When compared with ECG of 12-AUG-2023 05:25, No significant change was found Confirmed by Philip Cheek ([id number]) on 08/14/2023 1:10:53 PM Referred By: REFERRED SELF Confirmed By:Philip Cheek
--- NOTE | 2023-08-14 15:29 | Hospitalist Progress Note ---
Date of Service August 14, 2023 Assessment & Plan (1) Acute dehydration: Plan: 53-year-old male with past medical history significant for type 2 diabetes, hyperlipidemia, obstructive sleep apnea, paroxysmal atrial fibrillation, cardiac amyloidosis, multiple myeloma without remission, currently on chemo history of CAD nonocclusive, chronic heart failure with preserved ejection fraction, chronic kidney disease stage III, congenital solitary right kidney, BPH, peripheral neuropathic pain, chemotherapy-induced neuropathy, anxiety, presents with diarrhea and hypotension and electrolyte abnormalities. He is being managed for the following: Acute dehydration Diarrhea Salmonella infection Electrolyte abnormalities Metabolic acidosis Hypotension on presentation improved with the fluids Took a dose of Levaquin in the morning of arrival - changed to Rocephin on admission . Significantly decreased freq of stools but still liquidy per pt, adding psyllium to bulk, advanced diet. Will follow. C/w pedialyte hedy by bedside. ID evaluated, appreciate recs. Continue to monitor, if patient improves then 2-week course of Cipro 08/10 --> Bactrim 08/12 [due to prolonged QTc] Pt w/ poor appetite but reports drinking electrolyte solution; will need gentle ivf if w/ continued poor po intake. Monitor and replete lytes, calcium and phosphorous again replaced today. Labs in AM. Prolonged QTc: Probably from electrolyte abnormalities. QTc prolonged again 08/12, changed Cipro to Bactrim 08/12. Currently Lexapro on hold. Repeat EKG in AM - QTc improved 08/13. History of A-fib/supratherapeutic INR: On Coumadin. Was on amiodarone few months back per patient. Follow PT/INR - initially coumadin on hold due to elevated pt/inr. might need temporary dose reduction of coumadin while on antibiotic. 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 resumed coumadin at decreased dose of 1 mg daily, follow Pt/inr. Currently NSR. History of chronic heart failure preserved ejection fraction Cardiac amyloidosis Currently holding torsemide and home potassium supplement Getting fluids, consider dc when po intake and diarrhea improves Monitor for volume overload History of multiple myeloma: Getting chemo every 2 weeks. Follows with heme-onc Diabetes: Hold home medications. Insulin sliding scale. Follow the blood sugars History of CAD nonocclusive: On Coumadin and Repatha, continue as able. History of orthostatic hypotension: On midodrine Hypothyroidism: On Synthyroid, continue BPH: On finasteride GERD: Protonix and famotidine Obstructive sleep apnea on CPAP nightly CKD stage III/Solitary kidney: Presented with creatinine 1.7 seems to be around baseline. Follow labs. Cr now better than his baseline. DVT PX on Coumadin. Follow pt/ir, hep sq until pt/inr therapeutic. Disposition: Tele floor. PT/OT, CM to assist with dc plan. Full code. Admission and Anticipated Discharge Date Admission Date: August 09, 2023 Subjective Patient was seen and examined at bedside. Patient was sitting up in bed, on room air, NAD, reports 1 BM overnight and 1 in AM both liquidy per him, increasing bulking agent, adv diet as eze, pt with poor diet per RN. Reports weakness and tiredness more than yesterday. Denies fever/chills/headache or dizziness. Patient denies chest pain or sore throat or cough. Physical Exam Physical Exam: GENERAL: Alert and oriented x3. NAD, on RA. appears weak/frail/tired HEENT: No pallor, no icterus. Pupils equal, round and reactive to light. Oral mucosa moist. NECK: No JVD, no neck masses. HEART: S1 and S2 heard. Regular rate and rhythm. No murmur, no gallop. RESPIRATORY SYSTEM: Normal AP diameter. No accessory muscle use. No wheezing, no crackles. ABDOMEN: Soft, bowel sounds present, nontender, no distention. CENTRAL NERVOUS SYSTEM: No facial droop. Speech is clear. Obeys simple commands. Moves extremities. EXTREMITIES: Pedal edema 1+, no erythema seen. Results & Data Results & Data Vital Signs (Past 12 Hours) Vital Signs Temp Pulse Pulse Resp BP Pulse Ox O2 Del Method 08/14/23 11:25 36.6 C 81 19 145/93 H 99 Room Air 08/14/23 07:20 72 17 100 08/14/23 07:09 36.7 C 72 19 120/77 100 BiPAP O2 Flow Rate 08/14/23 11:25 08/14/23 07:20 2 08/14/23 07:09
[2023-08-14] MEDS: WARFARIN SOD 1 MG TAB PO SCH (17:21)
[2023-08-14] MEDS: ACYCLOVIR 400 MG TAB PO SCH (21:30)
[2023-08-14] MEDS: FAMOTIDINE 20 MG TAB PO SCH (21:31)
[2023-08-14] MEDS: CHOLESTYRAMINE LIGHT 4 GM PKT PO SCH (23:13)
[2023-08-15] MEDS: LEVOTHYROXINE SODIUM 50 MCG TABLET PO SCH (05:46)
[2023-08-15 06:58] LABS: INR 1.4 (0.9-1.1); Prothrombin Time 14.7 Seconds (9.0-12.0)
[2023-08-15 07:01] LABS: BUN Creatinine Ratio 6.7 (10-20); Calcium 6.8 mg/dl (8.6-10.3); Creatinine Clr Calc Pharmacy 79.5 ml/min; Est GFR (African American) 94.6 ml/min; Est GFR (Non-African American) 81.6 ml/min; Magnesium 1.5 mg/dl (1.7-2.4); Potassium 4.1 mmol/L (3.5-5.1)
[2023-08-15] MEDS ORDERED: STAT IV/IM STA (07:47)
[2023-08-15] MEDS ORDERED: POTASSIUM PHOS 3 MMOL/1 ML INFUSION IV STA (07:47)
[2023-08-15] MEDS: oxyCODONE HCL IR 5 MG TAB (IMMEDIATE RELEASE) PO PRN (07:51)
[2023-08-15] MEDS: MIDODRINE HCL 10 MG TAB PO SCH (07:51)
[2023-08-15] MEDS: INSULIN ASPART PER UNIT CHARGE SC SCH ×4 (07:53→20:39)
[2023-08-15] MEDS: PANTOprazole 40 MG TAB PO SCH (07:59)
[2023-08-15] MEDS: SULFAMETHOXAZOLE/TRIMETHOPRIM DS 800/160MG TAB PO SCH ×2 (07:59→21:13)
[2023-08-15] MEDS: ICOSAPENT ETHYL 1 GM PO SCH ×2 (07:59→17:04)
[2023-08-15] MEDS: TENOFOVIR ALAFENAMIDE FUMARATE PO SCH (07:59)
[2023-08-15] MEDS: CALCIUM CARBONATE 1,250 MG/5 ML UDC PO SCH ×2 (07:59→21:14)
[2023-08-15] MEDS: FINASTERIDE 5 MG TAB PO SCH (08:00)
[2023-08-15] MEDS: PSYLLIUM or GUAR GUM FIBER POWDER PACKET PO SCH ×2 (08:00→21:14)
[2023-08-15] MEDS: DULoxetine HCL 20 MG CAP PO SCH (08:00)
[2023-08-15] MEDS: DAPSONE 25 MG TAB PO SCH (08:00)
[2023-08-15] MEDS: ADVANCED PROBIOTIC 1250 MG CAPSULE PO SCH (08:00)
[2023-08-15] MEDS ORDERED: CALCIUM GLUCONATE 10% 1,000 MG in SODIUM CHLOR 0.9% MINI-B 50 ML IV ONE (08:00)
[2023-08-15] MEDS: FOLIC ACID 400 MCG TAB PO SCH (08:00)
[2023-08-15] MEDS: CHOLECALCIFEROL 1,000 UNITS 25 MCG TAB PO SCH (08:00)
[2023-08-15] MEDS: HEPARIN SOD 5,000 UNIT/0.5 ML VIAL SQ SCH ×2 (08:01→21:14)
[2023-08-15] MEDS: MAGNESIUM SULFATE / D5W 1 GM/100 ML BAG IV SCH ×3 (08:12→12:13)
[2023-08-15] MEDS ORDERED: POTASSIUM PHOSPHATE 21 MMOL in SODIUM CHLORIDE 0.9% 500 ML IV ONE (08:15)
[2023-08-15] MEDS: PROMETHAZINE HCL 6.25 MG in SODIUM CHLORIDE 0.9% 50 ML IV PRN ×2 (08:34→17:29)
[2023-08-15] MEDS: CHOLESTYRAMINE LIGHT 4 GM PKT PO SCH ×2 (10:24→21:12)
[2023-08-15] MEDS: MIDODRINE HCL 2.5 MG TAB PO SCH ×2 (12:12→17:06)
--- NOTE | 2023-08-15 12:47 | Electrocardiogram Report ---
Test Reason : Blood Pressure : / mmHG Vent. Rate : 072 BPM Atrial Rate : 072 BPM P-R Int : 188 ms QRS Dur : 106 ms QT Int : 468 ms P-R-T Axes : 016 092 -89 degrees QTc Int : 512 ms Normal sinus rhythm Rightward axis Septal infarct (cited on or before 13-AUG-2023) Nonspecific T wave abnormality Prolonged QT Abnormal ECG When compared with ECG of 13-AUG-2023 14:51, No significant change was found Confirmed by Philip Cheek ([id number]) on 08/15/2023 12:47:38 PM Referred By: REFERRED SELF Confirmed By:Philip Cheek
--- NOTE | 2023-08-15 15:45 | Hospitalist Progress Note ---
Date of Service August 15, 2023 Assessment & Plan (1) Acute dehydration: Plan: 53-year-old male with past medical history significant for type 2 diabetes, hyperlipidemia, obstructive sleep apnea, paroxysmal atrial fibrillation, cardiac amyloidosis, multiple myeloma without remission, currently on chemo history of CAD nonocclusive, chronic heart failure with preserved ejection fraction, chronic kidney disease stage III, congenital solitary right kidney, BPH, peripheral neuropathic pain, chemotherapy-induced neuropathy, anxiety, presents with diarrhea and hypotension and electrolyte abnormalities. He is being managed for the following: Acute dehydration Diarrhea Salmonella infection Electrolyte abnormalities Metabolic acidosis Hypotension on presentation improved with the fluids Took a dose of Levaquin in the morning of arrival - changed to Rocephin on admission . Significantly decreased freq of stools but still liquidy per pt, adding psyllium to bulk, advanced diet. Will follow. C/w pedialyte hedy by bedside. ID evaluated, appreciate recs. Continue to monitor, if patient improves then 2-week course of Cipro 08/10 --> Bactrim 08/12 [due to prolonged QTc] Pt w/ poor appetite in general (lithoplate maker consulted), reports drinking electrolyte solution Stool slightly forming up per pt, feels better today. Monitor and replete lytes, Mag, calcium and phosphorous again replaced today. Labs in AM. Prolonged QTc: Probably from electrolyte abnormalities. QTc prolonged again 08/12, changed Cipro to Bactrim 08/12. Currently Lexapro on hold. Repeat EKG in AM - QTc just above 500 today. History of A-fib/supratherapeutic INR: On Coumadin. Was on amiodarone few months back per patient. Follow PT/INR - initially coumadin on hold due to elevated pt/inr. might need temporary dose reduction of coumadin while on antibiotic. 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 resumed coumadin at decreased dose of 1 mg daily, follow Pt/inr. Currently NSR. History of chronic heart failure preserved ejection fraction Cardiac amyloidosis Currently holding torsemide and home potassium supplement Getting fluids, consider dc when po intake and diarrhea improves Monitor for volume overload History of multiple myeloma: Getting chemo every 2 weeks. Follows with heme-onc Diabetes: Hold home medications. Insulin sliding scale. Follow the blood sugars History of CAD nonocclusive: On Coumadin and Repatha, continue as able. History of orthostatic hypotension: On midodrine Hypothyroidism: On Synthyroid, continue BPH: On finasteride GERD: Protonix and famotidine Obstructive sleep apnea on CPAP nightly CKD stage III/Solitary kidney: Presented with creatinine 1.7 seems to be around baseline. Follow labs. Cr now better than his baseline. DVT PX on Coumadin. Follow pt/ir, hep sq until pt/inr therapeutic. Disposition: Tele floor. PT/OT, CM to assist with dc plan. Full code. Admission and Anticipated Discharge Date Admission Date: August 09, 2023 Subjective Patient was seen and examined at bedside. Patient was sitting up in bed, on room air, NAD, reports 1 BM overnight and 1 in AM, now slightly forming up, c/w bulking agent, adv diet as eze, pt with poor diet in general, pt encouraged to eat. Reports weakness and tiredness improving. Denies fever/chills/headache or dizziness. Patient denies chest pain or sore throat or cough. Physical Exam Physical Exam: GENERAL: Alert and oriented x3. NAD, on RA. appears weak/frail/tired HEENT: No pallor, no icterus. Pupils equal, round and reactive to light. Oral mucosa moist. NECK: No JVD, no neck masses. HEART: S1 and S2 heard. Regular rate and rhythm. No murmur, no gallop. RESPIRATORY SYSTEM: Normal AP diameter. No accessory muscle use. No wheezing, no crackles. ABDOMEN: Soft, bowel sounds present, nontender, no distention. CENTRAL NERVOUS SYSTEM: No facial droop. Speech is clear. Obeys simple commands. Moves extremities. EXTREMITIES: Pedal edema 1+, no erythema seen. Results & Data Results & Data Vital Signs (Past 12 Hours) Vital Signs Temp Pulse Pulse Resp BP Pulse Ox O2 Del Method 08/15/23 15:41 36.7 C 74 16 116/84 96 Room Air 08/15/23 15:26 75 08/15/23 11:24 36.9 C 78 18 134/91 95 Room Air 08/15/23 07:34 71 08/15/23 07:18 36.8 C 74 18 110/80 96 Room Air
[2023-08-15] MEDS: WARFARIN SOD 1 MG TAB PO SCH (17:05)
[2023-08-15] MEDS: FAMOTIDINE 20 MG TAB PO SCH (21:13)
[2023-08-15] MEDS: ACYCLOVIR 400 MG TAB PO SCH (21:13)
[2023-08-15] MEDS: traZODone HCL 50 MG TAB PO PRN (21:15)
[2023-08-16] MEDS: LEVOTHYROXINE SODIUM 50 MCG TABLET PO SCH (06:07)
[2023-08-16 06:51] LABS: BUN Creatinine Ratio 6.8 (10-20); Calcium 7.1 mg/dl (8.6-10.3); Creatinine Clr Calc Pharmacy 80.2 ml/min; Est GFR (African American) 95.7 ml/min; Est GFR (Non-African American) 82.5 ml/min; Magnesium 1.8 mg/dl (1.7-2.4); Potassium 4.3 mmol/L (3.5-5.1)
[2023-08-16 06:59] LABS: INR 1.6 (0.9-1.1)
[2023-08-16] MEDS ORDERED: STAT IV/IM STA (07:59)
[2023-08-16] MEDS ORDERED: POTASSIUM PHOS 3 MMOL/1 ML INFUSION IV STA (07:59)
[2023-08-16] MEDS ORDERED: MAGNESIUM SULFATE / D5W 1 GM/100 ML BAG IV ONE (07:59)
[2023-08-16] MEDS: INSULIN ASPART PER UNIT CHARGE SC SCH ×4 (08:00→21:27)
[2023-08-16] MEDS ORDERED: CALCIUM GLUCONATE 10% 1,000 MG in SODIUM CHLOR 0.9% MINI-B 50 ML IV ONE (08:15)
[2023-08-16] MEDS ORDERED: POTASSIUM PHOSPHATE 21 MMOL in SODIUM CHLORIDE 0.9% 500 ML IV ONE (08:15)
[2023-08-16] MEDS: PROMETHAZINE HCL 6.25 MG in SODIUM CHLORIDE 0.9% 50 ML IV PRN ×2 (09:30→15:55)
[2023-08-16] MEDS: CEROVITE ADV FORMULA TAB PO SCH (09:35)
[2023-08-16] MEDS: DULoxetine HCL 20 MG CAP PO SCH (09:36)
[2023-08-16] MEDS: CALCIUM CARBONATE 1,250 MG/5 ML UDC PO SCH ×2 (09:36→21:26)
[2023-08-16] MEDS: MIDODRINE HCL 10 MG TAB PO SCH (09:37)
[2023-08-16] MEDS: ADVANCED PROBIOTIC 1250 MG CAPSULE PO SCH (09:37)
[2023-08-16] MEDS: DAPSONE 25 MG TAB PO SCH (09:37)
[2023-08-16] MEDS: CHOLECALCIFEROL 1,000 UNITS 25 MCG TAB PO SCH (09:37)
[2023-08-16] MEDS: PANTOprazole 40 MG TAB PO SCH (09:38)
[2023-08-16] MEDS: CHOLESTYRAMINE LIGHT 4 GM PKT PO SCH ×2 (09:38→21:26)
[2023-08-16] MEDS: SULFAMETHOXAZOLE/TRIMETHOPRIM DS 800/160MG TAB PO SCH ×2 (09:38→21:26)
[2023-08-16] MEDS: HEPARIN SOD 5,000 UNIT/0.5 ML VIAL SQ SCH ×2 (09:38→21:27)
[2023-08-16] MEDS: TENOFOVIR ALAFENAMIDE FUMARATE PO SCH (09:38)
[2023-08-16] MEDS: ICOSAPENT ETHYL 1 GM PO SCH ×2 (09:39→16:57)
[2023-08-16] MEDS: PSYLLIUM or GUAR GUM FIBER POWDER PACKET PO SCH ×3 (09:40→21:31)
[2023-08-16] MEDS: FINASTERIDE 5 MG TAB PO SCH (09:47)
[2023-08-16] MEDS: FOLIC ACID 400 MCG TAB PO SCH (09:47)
[2023-08-16] MEDS: MIDODRINE HCL 2.5 MG TAB PO SCH ×2 (11:58→16:55)
--- NOTE | 2023-08-16 14:58 | Hospitalist Progress Note ---
Date of Service August 16, 2023 Assessment & Plan (1) Acute dehydration: Plan: 53-year-old male with past medical history significant for type 2 diabetes, hyperlipidemia, obstructive sleep apnea, paroxysmal atrial fibrillation, cardiac amyloidosis, multiple myeloma without remission, currently on chemo history of CAD nonocclusive, chronic heart failure with preserved ejection fraction, chronic kidney disease stage III, congenital solitary right kidney, BPH, peripheral neuropathic pain, chemotherapy-induced neuropathy, anxiety, presents with diarrhea and hypotension and electrolyte abnormalities. He is being managed for the following: Acute dehydration Diarrhea Salmonella infection Electrolyte abnormalities Metabolic acidosis Hypotension on presentation improved with the fluids Took a dose of Levaquin in the morning of arrival - changed to Rocephin on admission . Significantly decreased freq of stools but still liquidy per pt, adding psyllium to bulk, advanced diet. Will follow. C/w pedialyte hedy by bedside. ID evaluated, appreciate recs. Continue to monitor, if patient improves then 2-week course of Cipro 08/10 --> to Bactrim 08/12 [due to prolonged QTc] Pt w/ poor appetite in general (mathematics education professor consulted), reports drinking electrolyte solution Stool slightly forming up per pt, feels weak and tired today. Monitor and replete lytes, Mag, calcium and phosphorous again replaced today. Labs in AM. Prolonged QTc: Probably from electrolyte abnormalities. QTc prolonged again 08/12, changed Cipro to Bactrim 08/12. Currently Lexapro on hold. QTc 491 today, improving. History of A-fib/supratherapeutic INR: On Coumadin. Was on amiodarone few months back per patient. Follow PT/INR - initially coumadin on hold due to elevated pt/inr. might need temporary dose reduction of coumadin while on antibiotic. 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 resumed coumadin at decreased dose of 1 mg daily, follow Pt/inr. Currently NSR. History of chronic heart failure preserved ejection fraction Cardiac amyloidosis Currently holding torsemide and home potassium supplement due ongoing diarrhea Monitor for volume overload History of multiple myeloma: Getting chemo every 2 weeks. Follows with heme-onc Diabetes: Hold home medications. Insulin sliding scale. Follow the blood sugars History of CAD nonocclusive: On Coumadin and Repatha, continue as able. History of orthostatic hypotension: On midodrine Hypothyroidism: On Synthyroid, continue BPH: On finasteride GERD: Protonix and famotidine Obstructive sleep apnea on CPAP nightly CKD stage III/Solitary kidney: Presented with creatinine 1.7 seems to be around baseline. Follow labs. Cr now better than his baseline. DVT PX on Coumadin. Follow pt/ir, hep sq until pt/inr therapeutic. Disposition: Tele floor. PT/OT, CM to assist with dc plan. likely in 1-2 day to home w/ HH. Full code. Admission and Anticipated Discharge Date Admission Date: August 09, 2023 Subjective Patient was seen and examined at bedside. Patient was sitting up in bed, on room air, NAD, reports 1 BM overnight and 1 in AM, reports slightly forming up, c/w bulking agent, adv diet as eze, pt with poor diet in general, pt encouraged to eat. Reports weakness and tiredness ongoing. Denies fever/chills/headache or dizziness. Patient denies chest pain or sore throat or cough. Pt states insecurity to go home due to still loose stools but wouldn't like to go to rehab either. Physical Exam Physical Exam: GENERAL: Alert and oriented x3. NAD, on RA. appears weak/frail/tired HEENT: No pallor, no icterus. Pupils equal, round and reactive to light. Oral mucosa moist. NECK: No JVD, no neck masses. HEART: S1 and S2 heard. Regular rate and rhythm. No murmur, no gallop. RESPIRATORY SYSTEM: Normal AP diameter. No accessory muscle use. No wheezing, no crackles. ABDOMEN: Soft, bowel sounds present, nontender, no distention. CENTRAL NERVOUS SYSTEM: No facial droop. Speech is clear. Obeys simple commands. Moves extremities. EXTREMITIES: Pedal edema 1+, no erythema seen. Results & Data Results & Data Vital Signs (Past 12 Hours) Vital Signs Temp Pulse Pulse Resp BP Pulse Ox O2 Del Method 08/16/23 11:01 36.9 C 76 17 112/70 97 Room Air 08/16/23 10:00 78 08/16/23 10:00 Room Air 08/16/23 07:10 37.0 C 76 17 102/67 94 Room Air 08/16/23 03:42 78 14 96 08/16/23 03:00 37.0 C 74 16 87/54 L 95 Room Air, CPAP O2 Flow Rate 08/16/23 11:01 08/16/23 10:00 08/16/23 10:00 08/16/23 07:10 08/16/23 03:42 2 08/16/23 03:00
--- NOTE | 2023-08-16 15:05 | Electrocardiogram Report ---
Test Reason : Blood Pressure : / mmHG Vent. Rate : 077 BPM Atrial Rate : 077 BPM P-R Int : 188 ms QRS Dur : 104 ms QT Int : 434 ms P-R-T Axes : 041 095 263 degrees QTc Int : 491 ms Normal sinus rhythm Low voltage QRS Nonspecific T wave abnormality Prolonged QT Abnormal ECG When compared with ECG of 15-AUG-2023 06:30, No significant change was found Confirmed by Philip Cheek ([id number]) on 08/16/2023 3:05:21 PM Referred By: REFERRED SELF Confirmed By:Philip Cheek
[2023-08-16] MEDS: WARFARIN SOD 1 MG TAB PO SCH (16:56)
[2023-08-16] MEDS: FAMOTIDINE 20 MG TAB PO SCH (21:26)
[2023-08-16] MEDS: ACYCLOVIR 400 MG TAB PO SCH (21:26)
[2023-08-17] MEDS: LEVOTHYROXINE SODIUM 50 MCG TABLET PO SCH (06:04)
[2023-08-17 06:39] LABS: INR 1.9 (0.9-1.1); Prothrombin Time 20.1 Seconds (9.0-12.0)
--- NOTE | 2023-08-17 07:24 | Hospitalist Progress Note ---
Date of Service August 17, 2023 Assessment & Plan (1) Acute dehydration: Plan: Mr. Ochoa is a 53-year-old male with past medical history significant for type 2 diabetes, hyperlipidemia, obstructive sleep apnea, paroxysmal atrial fibrillation, cardiac amyloidosis, multiple myeloma without remission, currently on chemo, nonobstrutive CAD, chronic heart failure with preserved ejection fraction, chronic kidney disease stage III, congenital solitary right kidney, BPH, peripheral neuropathic pain, chemotherapy-induced neuropathy, anxiety, presents with diarrhea and hypotension and electrolyte abnormalities. He is being managed for the following: #Acute hypoxic Respiratory failure, iatrogenic -Volume overload 2/2 aggressive IVF -Tenuous blood pressures; home torsemide held -Resume PO torsemide, consider IV if no improvement -Discussed with #Acute dehydration #Gastroenteritis 2/2 Diarrhea #Salmonella infection Still with liquid stool, but decreased frequenquency since presentation ID evaluated 08/10, appreciate recs. -Continue to monitor, if patient improves then 2-week course of Cipro 08/10 --> to Bactrim 08/12 [due to prolonged QTc] EOT 08/24 -Continue probiotics #Electrolyte abnormalities #Non-anion gap metabolic acidosis -Symptom control for diarrhea -Monitor electrolytes and replace prn #Prolonged QTc EKG on 08/08 537 QTc prolonged again 08/12, changed Cipro to Bactrim 08/12. Currently Lexapro on hold. QTc 491 08/16 Avoid QTc prolongating agents #Paroxysmal Atrial Fibrillation #supratherapeutic INR: On Coumadin. Was on amiodarone few months back per patient. Follow PT/INR - initially coumadin on hold due to elevated pt/inr. might need temporary dose reduction of coumadin while on antibiotic. [employer] coumadin dose 1.25 mg daily per patient. resumed coumadin at decreased dose of 1 mg daily, follow Pt/inr. Currently NSR. 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 -Last treatment with Darzalecx Faspro on 07/25, Xgeva held 2/2 low phos, cytoxan held per request -Continue Dapsone, Acyclovir, and Tenovir -Continue Hizentra upon discharge #Diabetes: Hold home metformin 1000mg daily SSI ACHS Liberalize diet 2/2 poor po intake #Nonobstructive CAD s/p cath 2017 #HLD -Can resume repatha upon discharge -continue vascepa -Did not tolerate BB previously #Ambulatory dysfunction, amiodarone use v MSK #Lower extremity weakness #Orthostatic hypotension: On midodrine #Hypothyroidism: TSH 2.22 -Continue Synthyroid #BPH s/p urolift Follows urology OP Continue finasteride #GERD: Protonix #Obstructive sleep apnea on CPAP nightly #CKD stage III/Solitary kidney: Presented with creatinine 1.7 seems to be around baseline. Follow labs. Cr now better than his baseline. DVT PX on Coumadin. Follow pt/ir, hep sq until pt/inr therapeutic. Disposition: Tele floor. PT/OT: adamant for Full code. Admission and Anticipated Discharge Date Admission Date: August 09, 2023 Subjective Reports continued weakness and lack of appetite. Explored topic of appetite stimulants in the coming days Discussed liberalization of diet given relative hypoglycemia and to encourage PO intake as tolerated Review home medications and history with at bedside. Review of Systems Review of Systems: All systems reviewed & are unremarkable except as noted in Subjective Physical Exam Constitutional: tired, appears weak and unwell Respiratory: crackles in RLL Cardiovascular: RRR, no murmur, no edema Gastrointestinal (Abdomen): normal bowel sounds, soft, nontender, no hepatosplenomegaly Results & Data Results & Data Vital Signs (Past 12 Hours) Vital Signs Temp Pulse Pulse Resp BP Pulse Ox O2 Del Method 08/17/23 03:18 36.7 C 71 14 131/86 96 Room Air 08/17/23 02:43 18 08/16/23 23:20 76 08/16/23 23:07 80 20 95 08/16/23 23:00 36.8 C 77 14 131/88 96 Room Air 08/16/23 21:10 Room Air O2 Flow Rate 08/17/23 03:18 08/17/23 02:43 2 08/16/23 23:20 08/16/23 23:07 2 08/16/23 23:00 08/16/23 21:10 Laboratory Results BMP 08/17/23 08:02 Sodium 140 Potassium 4.9 Chloride 118 H Carbon Dioxide 15 L BUN 7 Creatinine 1.04 Glucose 88 Calcium 7.7 L Medications Administered Home Medications Medication Instructions Recorded Confirmed Last Taken acyclovir 400 mg tablet 400 mg PO QPM 05/16/18 08/09/23 08/08/23 albuterol sulfate 90 mcg/actuation 2 puff inhalation Q6 PRN Cough or 05/16/18 08/09/23 12/01/19 aerosol inhaler (Ventolin HFA) SOB escitalopram oxalate 10 mg tablet 10 mg PO QAM 05/16/18 08/09/23 08/08/23 (Lexapro) pantoprazole 20 mg tablet,delayed 20 mg PO QAM 09/02/20 08/09/23 08/08/23 release (Protonix) potassium chloride 10 mEq 10 meq PO QAM 09/02/20 08/09/23 05/05/23 09:00 tablet,extended release dapsone 25 mg tablet 25 mg PO QAM 02/26/22 08/09/23 08/08/23 evolocumab 140 mg/mL subcutaneous 140 mg subcut UD 02/26/22 08/09/23 04/29/23 09:00 pen injector (Sherry Doran) folic acid 400 mcg tablet 400 mcg PO QAM 02/26/22 08/09/23 08/08/23 finasteride 5 mg tablet 5 mg PO QAM 07/24/22 08/09/23 08/08/23 oxycodone 5 mg tablet 5 mg PO Q6H PRN Pain 07/24/22 08/09/23 05/05/23 08:00 trazodone 50 mg tablet 50 mg PO HS PRN Insomnia 07/24/22 08/09/23 05/05/23 19:00 dexamethasone 4 mg tablet 20 mg PO .TWICE A MONTH 05/02/23 08/09/23 04/29/23 08:00 duloxetine 20 mg capsule,delayed 40 mg PO QAM 05/02/23 08/09/23 08/08/23 release sprinkle icosapent ethyl 1 gram capsule 2 g PO BID 05/02/23 08/09/23 08/08/23 (Vascepa) immun glob G 4 gram/20 mL(20 0 ml subcut UD 05/02/23 08/09/23 07/15/23 %)-prol-IgA 0-50 mcg/mL subcutaneous soln (Hizentra) levothyroxine 50 mcg tablet 50 mcg PO QAM 05/02/23 08/09/23 08/08/23 torsemide 20 mg tablet 20 mg PO QAM 05/02/23 08/09/23 05/05/23 09:00 levofloxacin 750 mg tablet 750 mg PO Q48H #4 tabs 08/08/23 08/09/23 Unknown ondansetron 4 mg disintegrating 4 mg PO Q6H PRN nausea and 08/08/23 08/09/23 Unknown tablet vomiting #20 tabs Nss 0.9% W Daratumumab 16mg/Kg 1 dose IV .EVERY 14 DAYS 08/09/23 08/09/23 Unknown acetaminophen 325 mg tablet 325 mg PO UD 08/09/23 08/09/23 Unknown cholecalciferol (vitamin D3) 50 50 mcg PO QAM 08/09/23 08/09/23 08/08/23 mcg (2,000 unit) tablet (Vitamin D3) diphenhydramine HCl 50 mg capsule 50 mg PO UD 08/09/23 08/09/23 Unknown epinephrine 0.3 mg/0.3 mL 0.3 mg IM UD PRN severe reaction 08/09/23 08/09/23 Unknown injection, auto-injector (EpiPen) famotidine 20 mg tablet 20 mg PO HS 08/09/23 08/09/23 08/08/23 insulin glargine 100 unit/mL (3 10 unit subcut QPM 08/09/23 08/09/23 08/07/23 mL) subcutaneous pen (Lantus Solostar U-100 Insulin) metformin 500 mg tablet,extended 1,000 mg PO QAM 08/09/23 08/09/23 08/08/23 release 24 hr midodrine 10 mg tablet 10 mg PO UD 08/09/23 08/09/23 Unknown ondansetron HCl 8 mg tablet 8 mg PO Q8H PRN Nausea 08/09/23 08/09/23 Unknown tenofovir alafenamide 25 mg tablet 25 mg PO QAM 08/09/23 08/09/23 08/08/23 (Vemlidy) warfarin 2.5 mg tablet 2.5 mg PO UD 08/09/23 08/09/23 Unknown Active Medications Generic Name Dose Route Start Last Admin Trade Name Juan PRN Reason Stop Dose Admin Acyclovir 400 mg 08/09/23 21:00 08/16/23 21:26 Acyclovir 400 Mg Tab PO 09/08/23 20:59 400 mg QPM JOSE Administration Calcium Carbonate 1,250 mg 08/12/23 21:00 08/17/23 09:18 Calcium Carbonate 1,250 Mg/5 Ml Udc PO 09/11/23 20:59 1,250 mg BID JOSE Administration Cholestyramine Resin 4 gm 08/14/23 22:00 08/17/23 09:19 Cholestyramine Light 4 Gm Pkt PO 09/13/23 21:59 4 gm BID@1000,2200 JOSE Administration Dapsone 25 mg 08/09/23 09:00 08/17/23 09:16 Dapsone 25 Mg Tab PO 09/08/23 08:59 25 mg QAM JOSE Administration Duloxetine HCl 40 mg 08/09/23 09:00 08/17/23 09:17 Duloxetine Hcl 20 Mg Cap PO 09/08/23 08:59 40 mg QAM JOSE Administration Escitalopram Oxalate 10 mg 08/09/23 09:00 08/09/23 08:44 Escitalopram Oxalate 10 Mg Tab PO 09/08/23 08:59 10 mg QAM JOSE Administration Finasteride 5 mg 08/09/23 09:00 08/17/23 09:17 Finasteride 5 Mg Tab PO 09/08/23 08:59 5 mg QAM JOSE Administration Folic Acid 400 mcg 08/09/23 09:00 08/17/23 09:17 Folic Acid 400 Mcg Tab PO 09/08/23 08:59 400 mcg QAM JOSE Administration Heparin Sodium (Porcine) 5,000 units 08/14/23 09:00 08/17/23 09:18 Heparin Sod 5,000 Unit/0.5 Ml Vial SQ 09/13/23 08:59 5,000 units Q12 JOSE Administration Promethazine HCl 6.25 mg/ 50.25 mls @ 201 mls/hr 08/09/23 10:34 08/16/23 16:10 Sodium Chloride IV 09/08/23 10:33 Infused Q6H PRN Infusion Nausea And Vomiting Icosapent Ethyl 2 gm 08/10/23 17:00 08/17/23 09:15 Icosapent Ethyl 1 Gm Cap (Pom) PO 09/09/23 16:59 2 gm BIDM JOSE Administration Insulin Aspart 0 units 08/09/23 07:30 08/17/23 11:21 Insulin Aspart Per Unit Charge SC 09/08/23 07:29 Not Given ACHS JOSE Lactobacillus Acidophilus 2 cap 08/13/23 15:15 08/17/23 09:17 Advanced Probiotic 1250 Mg Capsule PO 09/12/23 15:14 2 cap DAILY JOSE Administration Levothyroxine Sodium 50 mcg 08/09/23 06:30 08/17/23 06:04 Levothyroxine Sodium 50 Mcg Tablet PO 09/08/23 06:29 50 mcg DAILYBB JOSE Administration Midodrine 10 mg 08/09/23 07:30 08/17/23 09:11 Midodrine Hcl 10 Mg Tab PO 09/08/23 07:29 Not Given DAILY@0730 [facility] Midodrine 5 mg 08/09/23 11:30 08/17/23 11:21 Midodrine Hcl 2.5 Mg Tab PO 09/08/23 11:29 Not Given DAILY@1130,1630 [facility] Miscellaneous 15 - 30 gm 08/09/23 02:20 08/10/23 07:15 Carbohydrates For Hypoglycemia PO 09/08/23 02:19 15 gm UD PRN Administration Hypoglycemia Protocol Multivitamins/Minerals 1 tab 08/16/23 09:00 08/17/23 09:17 Cerovite Adv Formula Tab PO 09/15/23 08:59 1 tab QAM JOSE Administration Oxycodone HCl 5 mg 08/09/23 02:20 08/15/23 07:51 Oxycodone Hcl Ir 5 Mg Tab (Immediate Release) PO 08/23/23 02:19 5 mg Q6H PRN Administration Pain Pantoprazole Sodium 40 mg 08/09/23 09:00 08/17/23 09:17 Pantoprazole 40 Mg Tab PO 09/08/23 08:59 40 mg QAM JOSE Administration Potassium Phosphate 2 tab 08/17/23 13:00 08/17/23 11:24 Pot Phosphate Monobasic W/ Sod Tab PO 09/16/23 12:59 2 tab QID JOSE Administration Psyllium Hydrophilic Mucilloid 1 pkt 08/14/23 21:00 08/17/23 09:16 Psyllium Or Guar Gum Fiber Powder Packet PO 09/13/23 20:59 1 pkt BID JOSE Administration Tenofovir Alafenamide 1 each 08/10/23 13:30 08/17/23 09:15 Tenofovir Alafenamide Fumarate (Pom) PO 09/09/23 13:29 1 each TODAY@0900 JOSE Administration Torsemide 20 mg 08/17/23 10:30 08/17/23 11:23 Torsemide 10 Mg Tab PO 09/16/23 10:29 20 mg QAM JOSE Administration Trazodone HCl 50 mg 08/09/23 02:20 08/15/23 21:15 Trazodone Hcl 50 Mg Tab PO 09/08/23 02:19 50 mg HS PRN Administration Insomnia Trimethoprim/Sulfamethoxazole 1 tab 08/12/23 09:00 08/17/23 09:18 Sulfamethoxazole/Trimethoprim Ds 800/160mg Tab PO 08/22/23 08:59 1 tab BID JOSE Administration Vitamin D 2,000 units 08/09/23 09:00 08/17/23 09:17 Cholecalciferol 1,000 Units 25 Mcg Tab PO 09/08/23 08:59 2,000 units QAM JOSE Administration Warfarin Sodium 1 mg 08/13/23 16:00 08/16/23 16:56 Warfarin Sod 1 Mg Tab PO 09/12/23 15:59 1 mg DAILY@1600 JOSE Administration
--- NOTE | 2023-08-17 07:46 | XRay Report ---
SINGLE VIEW CHEST CLINICAL HISTORY: Dyspnea FINDINGS: An AP, portable, upright chest radiograph is compared to study dated 07/26/2022 and correla marco antonio with chest CT dated 07/24/2022. The examination is degraded by portable technique, apical lordoti c positioning, and patient rotation. A right internal jugular central venous infusion port is unchan ged in position. The heart is enlarged noting atherosclerotic calcification of the thoracic ureter. T here is pulmonary vascular congestion with interstitial edema. There are right larger than left pleur al effusions with dependent consolidation. The right pleural effusion may be partially loculated. No pneumothorax is seen. The skeletal structures are osteopenic. The bony thorax is grossly intact. IMPRESSION: 1. Cardiomegaly with evidence of congestive failure and pulmonary edema. 2. Layering pleural effusions with dependent consolidation. ACT 112: Negative or not required by law. Electronically signed by: Daniel Alcantara M.D. 08/17/2023 7:44 AM
[2023-08-17] MEDS: INSULIN ASPART PER UNIT CHARGE SC SCH ×4 (07:56→20:29)
[2023-08-17] MEDS: MIDODRINE HCL 10 MG TAB PO SCH (09:11)
[2023-08-17] MEDS: ICOSAPENT ETHYL 1 GM PO SCH ×2 (09:15→16:28)
[2023-08-17] MEDS: TENOFOVIR ALAFENAMIDE FUMARATE PO SCH (09:15)
[2023-08-17] MEDS: DAPSONE 25 MG TAB PO SCH (09:16)
[2023-08-17] MEDS: PSYLLIUM or GUAR GUM FIBER POWDER PACKET PO SCH ×2 (09:16→20:30)
[2023-08-17] MEDS: ADVANCED PROBIOTIC 1250 MG CAPSULE PO SCH (09:17)
[2023-08-17] MEDS: DULoxetine HCL 20 MG CAP PO SCH (09:17)
[2023-08-17] MEDS: FINASTERIDE 5 MG TAB PO SCH (09:17)
[2023-08-17] MEDS: PANTOprazole 40 MG TAB PO SCH (09:17)
[2023-08-17] MEDS: FOLIC ACID 400 MCG TAB PO SCH (09:17)
[2023-08-17] MEDS: CHOLECALCIFEROL 1,000 UNITS 25 MCG TAB PO SCH (09:17)
[2023-08-17] MEDS: CEROVITE ADV FORMULA TAB PO SCH (09:17)
[2023-08-17] MEDS: CALCIUM CARBONATE 1,250 MG/5 ML UDC PO SCH ×2 (09:18→20:29)
[2023-08-17] MEDS: HEPARIN SOD 5,000 UNIT/0.5 ML VIAL SQ SCH ×2 (09:18→20:29)
[2023-08-17] MEDS: SULFAMETHOXAZOLE/TRIMETHOPRIM DS 800/160MG TAB PO SCH ×2 (09:18→20:28)
[2023-08-17] MEDS: CHOLESTYRAMINE LIGHT 4 GM PKT PO SCH ×2 (09:19→20:29)
[2023-08-17 09:35] LABS: BUN Creatinine Ratio 6.7 (10-20); Calcium 7.7 mg/dl (8.6-10.3); Creatinine Clr Calc Pharmacy 79.5 ml/min; Est GFR (African American) 94.6 ml/min; Est GFR (Non-African American) 81.6 ml/min; Magnesium 1.8 mg/dl (1.7-2.4); Phosphorus 2.2 mg/dl (2.5-4.9); Potassium 4.9 mmol/L (3.5-5.1)
[2023-08-17] MEDS: MIDODRINE HCL 2.5 MG TAB PO SCH ×2 (11:21→16:24)
[2023-08-17] MEDS: TORSEMIDE 10 MG TAB PO SCH (11:23)
[2023-08-17] MEDS: POT PHOSPHATE MONOBASIC W/ SOD TAB PO SCH ×3 (11:24→20:28)
[2023-08-17] MEDS ORDERED: droNABinol 2.5 MG CAP PO PRN (13:05)
[2023-08-17] MEDS ORDERED: PROMETHAZINE HCL 6.25 MG in SODIUM CHLORIDE 0.9% 50 ML IV PRN (13:09)
[2023-08-17] MEDS: WARFARIN SOD 1.25 MG TAB PO SCH (16:29)
[2023-08-17] MEDS: ACYCLOVIR 400 MG TAB PO SCH (20:28)
[2023-08-17] MEDS: traZODone HCL 50 MG TAB PO PRN (20:39)
[2023-08-18] MEDS: LEVOTHYROXINE SODIUM 50 MCG TABLET PO SCH (05:46)
[2023-08-18] MEDS: oxyCODONE HCL IR 5 MG TAB (IMMEDIATE RELEASE) PO PRN ×2 (05:46→12:49)
[2023-08-18 06:00] LABS: Hematocrit (blood only) 31.9 % (42.0-52.0); Hemoglobin 10.9 g/dl (14.0-18.0); Mean Corpuscular Hemoglobin 31.2 pg (25.0-34.0); Mean Corpuscular Hgb Conc 34.2 g/dL (32.0-36.0); Mean Corpuscular Volume 91.4 fL (80.0-100.0); Mean Platelet Volume 10.5 fL (9.4-12.4); Platelet Count 213 K/uL (130-400); RDW Coefficient of Variation 17.1 % (11.5-14.5); RDW Standard Deviation 56.6 fL (36.4-46.3); Red Blood Count 3.49 M/uL (4.70-6.10); White Blood Count 9.73 K/ul (4.8-10.8)
[2023-08-18 06:13] LABS: Calcium 7.1 mg/dl (8.6-10.3); Creatinine Clr Calc Pharmacy 82.7 ml/min; Est GFR (African American) 99.2 ml/min; Est GFR (Non-African American) 85.5 ml/min; Magnesium 1.2 mg/dl (1.7-2.4); Phosphorus 2.9 mg/dl (2.5-4.9); Potassium 4.1 mmol/L (3.5-5.1)
[2023-08-18 06:22] LABS: INR 2.5 (0.9-1.1); Prothrombin Time 25.9 Seconds (9.0-12.0)
[2023-08-18] MEDS: INSULIN ASPART PER UNIT CHARGE SC SCH ×3 (07:25→15:55)
[2023-08-18] MEDS ORDERED: PANTOprazole 40 MG TAB PO SCH (09:00)
[2023-08-18] MEDS: TENOFOVIR ALAFENAMIDE FUMARATE PO SCH (09:01)
[2023-08-18] MEDS: PSYLLIUM or GUAR GUM FIBER POWDER PACKET PO SCH (09:02)
[2023-08-18] MEDS: ICOSAPENT ETHYL 1 GM PO SCH ×2 (09:02→15:54)
[2023-08-18] MEDS: SULFAMETHOXAZOLE/TRIMETHOPRIM DS 800/160MG TAB PO SCH (09:02)
[2023-08-18] MEDS: POT PHOSPHATE MONOBASIC W/ SOD TAB PO SCH ×3 (09:02→15:55)
[2023-08-18] MEDS: CHOLESTYRAMINE LIGHT 4 GM PKT PO SCH (09:02)
[2023-08-18] MEDS: HEPARIN SOD 5,000 UNIT/0.5 ML VIAL SQ SCH (09:03)
[2023-08-18] MEDS: TORSEMIDE 10 MG TAB PO SCH (09:07)
[2023-08-18] MEDS: MIDODRINE HCL 10 MG TAB PO SCH (09:07)
[2023-08-18] MEDS: FOLIC ACID 400 MCG TAB PO SCH (09:07)
[2023-08-18] MEDS: FINASTERIDE 5 MG TAB PO SCH (09:07)
[2023-08-18] MEDS: ADVANCED PROBIOTIC 1250 MG CAPSULE PO SCH (09:07)
[2023-08-18] MEDS: CHOLECALCIFEROL 1,000 UNITS 25 MCG TAB PO SCH (09:07)
[2023-08-18] MEDS: DULoxetine HCL 20 MG CAP PO SCH (09:07)
[2023-08-18] MEDS: DAPSONE 25 MG TAB PO SCH (09:07)
[2023-08-18] MEDS: CALCIUM CARBONATE 1,250 MG/5 ML UDC PO SCH (09:08)
[2023-08-18] MEDS: CEROVITE ADV FORMULA TAB PO SCH (09:08)
[2023-08-18] MEDS: MIDODRINE HCL 2.5 MG TAB PO SCH ×2 (11:35→15:55)
[2023-08-18] MEDS ORDERED: MAGNESIUM CHLORIDE W/CALCIUM 64MG DELAYED REL TAB PO SCH (12:00)
[2023-08-18] MEDS ORDERED: MAGNESIUM OXIDE 400 MG TAB PO SCH (12:00)
[2023-08-18] MEDS: MAGNESIUM SULFATE / D5W 1 GM/100 ML BAG IV SCH ×2 (12:43→14:04)
--- NOTE | 2023-08-18 14:14 | Hospitalist Progress Note ---
Date of Service August 18, 2023 Assessment & Plan (1) Acute dehydration: Plan: Mr. Ochoa is a 53-year-old male with past medical history significant for type 2 diabetes, hyperlipidemia, obstructive sleep apnea, paroxysmal atrial fibrillation, cardiac amyloidosis, multiple myeloma without remission, currently on chemo, nonobstrutive CAD, chronic heart failure with preserved ejection fraction, chronic kidney disease stage III, congenital solitary right kidney, BPH, peripheral neuropathic pain, chemotherapy-induced neuropathy, anxiety, presents with diarrhea and hypotension and electrolyte abnormalities. He is being managed for the following: #Acute hypoxic Respiratory failure, iatrogenic *improved -Volume overload 2/2 aggressive IVF -Tenuous blood pressures; home torsemide held on admission -Continue PO torsemide -Discussed with #Acute dehydration #Gastroenteritis 2/2 Diarrhea #Salmonella infection Still with liquid stool, but decreased frequenquency since presentation ID evaluated 08/10, appreciate recs. -Continue to monitor, if patient improves then 2-week course of Cipro 08/10 --> to Bactrim 08/12 [due to prolonged QTc] EOT 08/24 -Continue probiotics #Electrolyte abnormalities #Non-anion gap metabolic acidosis -Symptom control for diarrhea -Monitor electrolytes and replace prn #Prolonged QTc EKG on 08/08 537 QTc prolonged again 08/12, changed Cipro to Bactrim 08/12. Currently Lexapro on hold. QTc 491 08/16 Avoid QTc prolongating agents #Paroxysmal Atrial Fibrillation #supratherapeutic INR: On Coumadin. Was on amiodarone few months back per patient. Follow PT/INR - initially coumadin on hold due to elevated pt/inr. might need temporary dose reduction of coumadin while on antibiotic. REWEAVER coumadin dose 1.25 mg daily per patient. resumed coumadin at decreased dose of 1 mg daily, follow Pt/inr. Currently NSR. 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 -Last treatment with Darzalecx Faspro on 07/25, Xgeva held 2/2 low phos, cytoxan held per request -Continue Dapsone, Acyclovir, and Tenovir -Continue Hizentra upon discharge #Diabetes: Hold home metformin 1000mg daily SSI ACHS Liberalize diet 2/2 poor po intake #Nonobstructive CAD s/p cath 2017 #HLD -Can resume repatha upon discharge -continue vascepa -Did not tolerate BB previously #Ambulatory dysfunction, amiodarone use v MSK #Lower extremity weakness #Orthostatic hypotension: On midodrine #Hypothyroidism: TSH 2.22 -Continue Synthyroid #BPH s/p urolift Follows urology OP Continue finasteride #GERD: Protonix #Obstructive sleep apnea on CPAP nightly #CKD stage III/Solitary kidney: Presented with creatinine 1.7 seems to be around baseline. Follow labs. Cr now better than his baseline. DVT PX on Coumadin. Follow pt/ir, hep sq until pt/inr therapeutic. Disposition: Tele floor. PT/OT: adamant for Full code. Admission and Anticipated Discharge Date Admission Date: August 09, 2023 Subjective Reports feeling much improved today Tolerating diet Review of Systems Review of Systems: All systems reviewed & are unremarkable except as noted in Subjective Physical Exam Constitutional: WD/WN, vitals as above Respiratory: normal respiratory effort, lungs clear to auscultation Cardiovascular: RRR, no murmur, no edema Results & Data Results & Data Vital Signs (Past 12 Hours) Vital Signs Temp Pulse Pulse Resp BP Pulse Ox O2 Del Method 08/18/23 11:28 36.9 C 76 111/72 14 L Room Air 08/18/23 10:00 87 08/18/23 10:00 Room Air 08/18/23 07:53 36.8 C 86 14 111/75 95 Room Air 08/18/23 03:00 36.6 C 82 14 107/67 95 CPAP 08/18/23 02:24 82 16 92 O2 Flow Rate 08/18/23 11:28 08/18/23 10:00 08/18/23 10:00 08/18/23 07:53 08/18/23 03:00 08/18/23 02:24 2
--- NOTE | 2023-08-18 14:40 | Discharge Summary ---
Discharge Summary Date of Service August 18, 2023 Notes For Next Care Provider Follow up BMP/Mag/Phos in 1 week Medication Changes From Visit -Discontinued lexapro 2/2 prolonged QtC and "not feeling like it does anything all these years" -Recommended Probiotic -Increased Vitamin D supplementation to 150mcg (6000U) daily -Started Mag/Ca supplement Admission HPI Per Admitting Provider 53-year-old male with past medical history significant for type 2 diabetes, hyperlipidemia, obstructive sleep apnea, paroxysmal atrial fibrillation, cardiac amyloidosis, multiple myeloma without remission, currently on chemo history of CAD nonocclusive, chronic heart failure with preserved ejection fraction, chronic kidney disease stage III, congenital solitary right kidney, BPH, peripheral neuropathic pain, chemotherapy-induced neuropathy, anxiety, presents with diarrhea and hypotension and electrode abnormalities. Patient was in the ER in the morning and stool studies found to have Salmonella and was discharged on PO Levaquin. At home he has having a lot of diarrhea feeling generalized weakness and nausea and he came back to the ER and was found to be hypotensive . BP improved with the fluids. Has some abdominal discomfort. Says he had about 10 episodes of diarrhea loose watery. No blood in the stools. Micturating okay. Denies any chest pain. No shortness of breath. No headache. No blurred visions. No cough. No runny nose. Past medical history. As mentioned above Past surgical history. Colonoscopy. Cystourethroscopy with plans prostatic implant. EGD. EGD with endoscopic ultrasound. S/p autologous stem cell transplantation 2014. Bilateral cataract surgery. Vasectomy. Social history. . No smoking. Alcohol rarely. No drug use. Family history. No family history on file. Admission Exam Per Admitting Provider General- adult Head- atraumatic Eyes- PERRL. ENT- oropharynx dry Neck- supple, no JVD, Lungs- clear to auscultation no wheezing or crackles Heart- regular rhythm; no murmur, no gallop. Abdomen- normal bowel sounds, soft, mild diffuse discomfort, no distension. Extremities- no pretibial edema, no erythema seen Neuro- alert, oriented x 3; PERRL, no facial palsy; no dysarthria; moves extremities. Skin- warm & dry Principal Dx & Hospital Course #1 = Principal Diagnosis (1) Salmonella enteritis: (2) Acute dehydration: Plan Mr. Ochoa is a 53-year-old male with past medical history significant for type 2 diabetes, hyperlipidemia, obstructive sleep apnea, paroxysmal atrial fibrillation, cardiac amyloidosis, multiple myeloma without remission, currently on chemo, nonobstrutive CAD, chronic heart failure with preserved ejection fraction, chronic kidney disease stage III, congenital solitary right kidney, BPH, peripheral neuropathic pain, chemotherapy-induced neuropathy, anxiety, presents with diarrhea and hypotension and electrolyte abnormalities. He is being managed for the following: #Acute hypoxic Respiratory failure, iatrogenic *resolved -Volume overload 2/2 aggressive IVF -Tenuous blood pressures; home torsemide held on admission -Brief O2 requirement with orthopnea; resolved s/p torsemide resumption -Continue home diuretic regimen #Acute dehydration *resolved #Gastroenteritis 2/2 Diarrhea *resolved #Salmonella infection Still with liquid stool, but decreased frequenquency since presentation ID evaluated 08/10, appreciate recs. - 2-week course of Cipro 08/10 --> to Bactrim 08/12 [due to prolonged QTc] EOT 08/24 -Continue probiotics, recommended #Electrolyte abnormalities #Severe Vitamin D Deficiency #Non-anion gap metabolic acidosis 2/2 diarrhea *improved -Encourage PO intake -Discontinue Phos supplement -Start Vit D 6000 U daily, close follow up with PCP -Start Mag/Ca supplement with close follow up labs -Check lytes in 1 week -Continue home potassium supplement #Prolonged QTc EKG on 08/08 537 QTc prolonged again 08/12, changed Cipro to Bactrim 08/12. Discontinued lexapro QTc 491 08/16 Avoid QTc prolongating agents -OP Cards follow up #Paroxysmal Atrial Fibrillation #supratherapeutic INR: On Coumadin. Was on amiodarone few months back per patient. Follow PT/INR - initially coumadin on hold due to elevated pt/inr. resumed coumadin home dose . Currently NSR. 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 -Last treatment with Darzalecx Faspro on 07/25, Xgeva held 2/2 low phos, cytoxan held per request -Continue Dapsone, Acyclovir, and Tenovir -Continue Hizentra upon discharge -Follow up Heme Onc #Diabetes: Resume home medications #Nonobstructive CAD s/p cath 2017 #HLD -Can resume repatha upon discharge -continue vascepa -Did not tolerate BB previously #Ambulatory dysfunction, amiodarone use v MSK #Lower extremity weakness -Home PT/OT #Orthostatic hypotension: On midodrine #Hypothyroidism: TSH 2.22 -Continue Synthyroid #BPH s/p urolift Follows urology OP Continue finasteride #GERD: Protonix #Obstructive sleep apnea on CPAP nightly #CKD stage III/Solitary kidney: Presented with creatinine 1.7 seems to be around baseline. Follow labs. Cr now better than his baseline. On day of discharge, patient was eating well--2 servings of mashpotatoes and lots of fluid in take. He reported feeling much improved overall and denied any acute concerns. Discussion regarding plan and follow up was had with over phone, as well as with patient. Discharge Exam Constitutional WD/WN, vitals as above Respiratory normal respiratory effort, lungs clear to auscultation Cardiovascular RRR, no murmur, no edema Gastrointestinal (Abdomen) normal bowel sounds, soft, nontender, no hepatosplenomegaly Musculoskeletal no cyanosis or clubbing, extremities motor strength 5/5 Updated Medication List Medication Instructions Recorded Confirmed Type acyclovir 400 mg tablet 400 mg PO QPM 05/16/18 08/09/23 History albuterol sulfate 90 mcg/actuation 2 puff inhalation Q6 PRN Cough or 05/16/18 08/09/23 History aerosol inhaler (Ventolin HFA) SOB pantoprazole 20 mg tablet,delayed 20 mg PO QAM 09/02/20 08/09/23 History release (Protonix) potassium chloride 10 mEq 10 meq PO QAM 09/02/20 08/09/23 History tablet,extended release dapsone 25 mg tablet 25 mg PO QAM 02/26/22 08/09/23 History evolocumab 140 mg/mL subcutaneous 140 mg subcut UD 02/26/22 08/09/23 History pen injector (Sherry Doran) folic acid 400 mcg tablet 400 mcg PO QAM 02/26/22 08/09/23 History finasteride 5 mg tablet 5 mg PO QAM 07/24/22 08/09/23 History oxycodone 5 mg tablet 5 mg PO Q6H PRN Pain 07/24/22 08/09/23 History trazodone 50 mg tablet 50 mg PO HS PRN Insomnia 07/24/22 08/09/23 History dexamethasone 4 mg tablet 20 mg PO .TWICE A MONTH 05/02/23 08/09/23 History duloxetine 20 mg capsule,delayed 40 mg PO QAM 05/02/23 08/09/23 History release sprinkle icosapent ethyl 1 gram capsule 2 g PO BID 05/02/23 08/09/23 History (Vascepa) immun glob G 4 gram/20 mL(20 0 ml subcut UD 05/02/23 08/09/23 History %)-prol-IgA 0-50 mcg/mL subcutaneous soln (Hizentra) levothyroxine 50 mcg tablet 50 mcg PO QAM 05/02/23 08/09/23 History torsemide 20 mg tablet 20 mg PO QAM 05/02/23 08/09/23 History ondansetron 4 mg disintegrating 4 mg PO Q6H PRN nausea and 08/08/23 08/09/23 Rx tablet vomiting #20 tabs Nss 0.9% W Daratumumab 16mg/Kg 1 dose IV .EVERY 14 DAYS 08/09/23 08/09/23 History acetaminophen 325 mg tablet 325 mg PO UD 08/09/23 08/09/23 History diphenhydramine HCl 50 mg capsule 50 mg PO UD 08/09/23 08/09/23 History epinephrine 0.3 mg/0.3 mL 0.3 mg IM UD PRN severe reaction 08/09/23 08/09/23 History injection, auto-injector (EpiPen) famotidine 20 mg tablet 20 mg PO HS 08/09/23 08/09/23 History insulin glargine 100 unit/mL (3 10 unit subcut QPM 08/09/23 08/09/23 History mL) subcutaneous pen (Lantus Solostar U-100 Insulin) metformin 500 mg tablet,extended 1,000 mg PO QAM 08/09/23 08/09/23 History release 24 hr midodrine 10 mg tablet 10 mg PO UD 08/09/23 08/09/23 History ondansetron HCl 8 mg tablet 8 mg PO Q8H PRN Nausea 08/09/23 08/09/23 History tenofovir alafenamide 25 mg tablet 25 mg PO QAM 08/09/23 08/09/23 History (Vemlidy) warfarin 2.5 mg tablet 2.5 mg PO UD 08/09/23 08/09/23 History L.acidop,casei,lactis,rham-B.lact,serenity 2 cap PO DAILY #30 caps 08/18/23 Rx 625 mg (10 billion cell) capsule (Advanced Probiotic) cholecalciferol (vitamin D3) 50 150 mcg (3 x 50 mcg (2,000 unit)) 08/18/23 Rx mcg (2,000 unit) tablet (Vitamin PO QAM #90 tabs D3) magnesium chloride 64 mg 64 mg PO BID #60 tabs 08/18/23 Rx (magnesium chloride) tablet,delayed release (Mag 64) sulfamethoxazole 800 1 tab PO BID #12 tabs 08/18/23 Rx mg-trimethoprim 160 mg tablet (Bactrim DS) Hospital Stay Data Consultations 08/08/23 23:57 ED Decision to Admit Stat 08/09/23 10:06 Consult Infectious Diseases Routine Diagnostic Imagining Performed Chest X-Ray 08/17/23 07:06 SINGLE VIEW CHEST CLINICAL HISTORY: Dyspnea FINDINGS: An AP, portable, upright chest radiograph is compared to study dated 07/26/2022 and correlated with chest CT dated 07/24/2022. The examination is degraded by portable technique, apical lordotic positioning, and patient rotation. A right internal jugular central venous infusion port is unchanged in position. The heart is enlarged noting atherosclerotic calcification of the thoracic ureter. There is pulmonary vascular congestion with interstitial edema. There are right larger than left pleural effusions with dependent consolidation. The right pleural effusion may be partially loculated. No pneumothorax is seen. The skeletal structures are osteopenic. The bony thorax is grossly intact. IMPRESSION: 1. Cardiomegaly with evidence of congestive failure and pulmonary edema. 2. Layering pleural effusions with dependent consolidation. ACT 112: Negative or not required by law. Electronically signed by: Daniel Alcantara M.D. 08/17/2023 7:44 AM Discharge Instructions Given to Patient (Per Discharging Provider) You were admitted for worsening weakness, diarrhea given salmonella infection. It was noted that you had a prolonged QT interval (an electrical pathway of your heart that if "prolonged" can result in cardiac arrhythmias)--this could be due to the multiple electrolyte imbalances you were experiencing, as well as medication induced. After days of antibiotics, IV electrolyte replacement, you seemed to have improved subjectively--noting that you were stilll experiencing some imbalances with your electrolytes. Please resume your home Torsemide with the Potassium supplement. You were started on Magnesium replacement by mouth, please continue to take this supplement twice daily You were found to be severely Vitamin D deficient, please start a vitamin D supplement (sent to your pharmacy). You will continue Bactrim 1 tablet twice daily until the prescription is complete. Please discontinue the Lexapro given the prolonged QtC as mentioned above. Discuss with your PCP or your Oncologist whether an appetite stimulant may be beneficial. Please resume all other medications as prescribed. Please follow up with your PCP in 1-2 weeks for labs (CBC, BMP, and Mag/Phos levels) to ensure your electrolytes are stable and to discuss future replacement/supplementation needs if necessary. Home Health Attestation I certify that this patient is under my care and that I, or a physicians kennel assistant working with me, had a face to-face encounter that meets the home health equx-nm-evry encounter requirements with this patient. The encounter with the patient was in whole, or in part, for the following medical condition, which is the primary reason for home health care (list medical condition): Electrolyte abnormalities I certify that, based on my findings, the following services are medically necessary home health services: My clinical findings support the need for the above services because: Caregiver Instruct Med Mgmt, Safety, Disease Process, Signs to Report Hydration / Nutrition Medication Compliance and Monitoring Effective of New Medications OT Assess ADL Status and Restore Function w ADLs PT Gait and Balance Training, Strengthening and Safety Skilled Nsg Assess Pt Illness, Disease and Sx Monitoring S/S to Report to Provider Teach on Disease Management and Interventions Vital Signs Further, I certify that my clinical findings support that this patient is homebound (i.e. absences from home require considerable and taxing effort and are for medical reasons or [facility] or infrequently or of short duration when for other reasons) because: Transportation Assistance/Unable to Leave Home Unassisted Certification for Home Health Services: Based on the above findings, I certify that this patient is confined to the home and needs intermittent fci care, physical therapy and/or speech therapy or continues to need occupational therapy. The patient is under my care, and I have initiated the establishment of the plan of care. This patient will be followed by a physician who will periodically review the plan of care. Total Time Total Time Spent Total Time Spent (In Minutes): 55
[2023-08-18] MEDS: WARFARIN SOD 1.25 MG TAB PO SCH (15:54)
== END 2023-08-18 17:55 | disposition home health service (06) | DRG 371 ==
LOC: ED 21:37 → EDINP 08-09 01:52 → SUATTDRO 08-09 01:52 → 2E 08-09 02:20

== ENCOUNTER 2023-08-26 12:45 | Inpatient (IN) ==
--- NOTE | 2023-08-26 13:10 | Emergency Department Note ---
Impression & Plan Hypotension, ARSENIO (acute kidney injury), Amyloidosis ED Provider Note NAME: MATT WALTON AGE: 53 SEX: M : 1970 ARRIVES VIA: Walk-In INFORMANT: Patient, ED PROVIDER(S): Ulises Bran MD CHIEF COMPLAINT: Low blood pressure, weakness, fatigue MEDICAL DECISION MAKING: Patient presents due to concern for weakness and fatigue with known history of amyloidosis and CHF. IV was established blood work was obtained patient did receive IV fluids. Patient's blood work shows a normal white count with mild anemia hemoglobin 11 mild hyponatremia at 134. Patient's creatinine of 1.8 is higher than usual. Troponin 64. Patient what he describes likely suffering from dehydration but the patient does have heart disease and does have pleural effusion seen on x- ray. Patient and family member are comfortable with plan of care. I did speak with the on-call hospitalist service Dr. Tavares and the patient was admitted to the medicine service. Discussion w/ other healthcare providers: Dr. Tavares inpatient medicine service Prior /Outside records reviewed: I did review a discharge summary from Dr. Stahl from August 18, 2023. The patient has known history of type 2 diabetes hyperlipidemia DEBBY A-fib cardiac amyloid multiple myeloma without remission currently on chemo with a history of nonocclusive CAD and CHF with preserved ejection fraction CKD stage III congenital solitary right kidney BPH neuropathic pain. Patient had presented concern for diarrhea hypotension and electrolyte abnormalities at that time. Patient stool studies noted to show Salmonella was discharged on p.o. Levaquin. Patient was noted to have acute hypoxic respiratory failure likely secondary to volume overload and aggressive IV the fluid resuscitation. Patient with history of cardiac amyloidosis echo on February 2023 with LVEF 42%. Patient is on torsemide 20 mg. I reviewed an ID consult from August 10, 2023 which is a telehealth consult with regard to the patient's Salmonella enteritis. Plan was to DC Cipro and start using Bactrim DS twice daily. Differential diagnosis: Infection, dehydration, metabolic abnormality, hypo/hyperglycemia, electrolyte imbalance, anemia, UTI, pneumonia, thyroid dysfunction among others were considered. Diagnostics, as interpreted by me: ECG: Normal sinus rhythm, rate of 76, normal intervals, normal axis no ST elevations to inversion in V6. Cardiac monitoring: An order was placed for continuous cardiac monitoring. The monitor shows a rate of 76 with sinus rhythm. Patient was placed on pulse oximetry Medical decision rules: None Imaging studies: I informally interpreted the patient's chest x-ray which does not show obvious pneumonia with formal report to follow. HPI: Patient presents due to concern for lower blood pressure. The patient does have a known history of DEBBY hyperlipidemia cardiac amyloid and CHF nonocclusive CAD and CKD stage III. The patient was presenting due to concern for weakness and fatigue with associated lower blood pressure. He does take midodrine. Patient was told by his primary care doctor Dr. Simons to hold his torsemide for the last several days his blood pressure was not improving. The patient does complain of some dizziness difficulty with ambulating and some associated weakness. Patient denies any head or neck pain. No fevers. The patient did have a diarrheal illness which required treatment with antibiotics which was from Salmonella. PAST MEDICAL HISTORY: See Below PAST SURGICAL HISTORY: See Below SOCIAL HISTORY: See Below HOME MEDICATIONS: See Below ALLERGIES: See Below VITALS: See Below PHYSICAL EXAMINATION: GENERAL: Fatigable but nontoxic in appearance. Wearing glasses. EYE EXAM: Normal conjunctiva. PERRL, no anisocoria and EOM's grossly intact w/o pain. OROPHARYNX: Moist mucus membranes, grossly normal dentition. NECK: Supple, no nuchal rigidity, no adenopathy, non-tender. No signs of meningismus. FROM of the neck with good chin to chest and neck extension. No stridor. LUNGS: Clear to auscultation. Normal chest wall mechanics. HEART: NSR, no MRG. ABDOMEN: Abdomen soft, non-tender, no masses, no rebound or guarding. BACK: No CVA TTP. SKIN: No rashes and no bruising. UPPER EXTREMITIES: Upper extremities are grossly normal. LOWER EXTREMITIES: Grossly normal, no edema. NEURO EXAM: A&O x3, cranial nerves II-XII grossly intact, normal speech, moves all 4 extremities. Past Med/Surg History Medical History (Updated 08/30/23 @ 16:29 by Ulises Bran MD) Cardiac amyloidosis CAD (coronary artery disease) Nonobstructive GERD (gastroesophageal reflux disease) Atrial fibrillation Follows with [facility]/Tim SAUCEDO Low back problem BPH (benign prostatic hyperplasia) CKD (chronic kidney disease) Follows with [facility]/Dr. 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/Dr. Amaral Krystian Surgical History History of surgery vasectomy reversal History of surgery Urolift History of vascular access device Right chest port (type unknown) History of cataract surgery History of cardiac cath Right heart cath (2018) History of colonoscopy History of esophagogastroduodenoscopy (EGD) H/O vasectomy Family History Father No problems noted. Mother No problems noted. 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 [employer] Deliveries Required: No Beliefs That Will Affect Care: None marital status: marital status details: twice - 3 children in total between the 2 marriages Current Living Situation: Spouse Current Living Situation Comment: lives in [place] current occupational status: disabled current occupation: previously worked at [employer] Other Information That Helps Us Care for You: No Feels Safe at Home: Yes Safety Concerns: Feels Safe At This Time Assistive Devices: Cane, CPAP and Oxygen - at Night Allergies Allergies Allergy/AdvReac Type Severity Reaction Status Date / Time NSAIDS (Non-Steroidal AdvReac Advised by Verified 08/26/23 14:53 Anti-Inflamma nephrology to avoid d/t CKD [id number] Reductase AdvReac Muscle Pain Verified 08/26/23 14:53 Inhibitor Home Meds Home Medications Medication Instructions Recorded Confirmed acyclovir 400 mg tablet 400 mg PO QPM 05/16/18 08/26/23 albuterol sulfate 90 mcg/actuation 2 puff inhalation Q6 PRN Cough or 05/16/18 08/26/23 aerosol inhaler (Ventolin HFA) SOB pantoprazole 20 mg tablet,delayed 20 mg PO QAM 12/22/20 12/15/23 release (Protonix) potassium chloride 10 mEq 10 meq PO QAM 09/02/20 08/26/23 tablet,extended release dapsone 25 mg tablet 25 mg PO QAM 02/26/22 08/26/23 evolocumab 140 mg/mL subcutaneous 140 mg subcut UD 02/26/22 08/26/23 pen injector (Sherry Doran) folic acid 400 mcg tablet 400 mcg PO QAM 02/26/22 08/26/23 finasteride 5 mg tablet 5 mg PO QAM 07/24/22 08/26/23 oxycodone 5 mg tablet 5 mg PO Q6H PRN Pain 07/24/22 08/26/23 trazodone 50 mg tablet 50 mg PO HS PRN Insomnia 07/24/22 08/26/23 dexamethasone 4 mg tablet 16 mg PO .TWICE A MONTH 05/02/23 08/26/23 duloxetine 20 mg capsule,delayed 40 mg PO QAM 05/02/23 08/26/23 release sprinkle icosapent ethyl 1 gram capsule 2 g PO BID 05/02/23 08/26/23 (Vascepa) immun glob G 4 gram/20 mL(20 0 ml subcut UD 05/02/23 08/26/23 %)-prol-IgA 0-50 mcg/mL subcutaneous soln (Hizentra) levothyroxine 50 mcg tablet 50 mcg PO QAM 05/02/23 08/26/23 Nss 0.9% W Daratumumab 16mg/Kg 1 dose IV .EVERY 14 DAYS 08/09/23 08/26/23 acetaminophen 325 mg tablet 325 mg PO UD 08/09/23 08/26/23 diphenhydramine HCl 50 mg capsule 50 mg PO UD 08/09/23 08/26/23 epinephrine 0.3 mg/0.3 mL 0.3 mg IM UD PRN severe reaction 08/09/23 08/26/23 injection, auto-injector (EpiPen) insulin glargine 100 unit/mL (3 10 unit subcut QPM 08/09/23 08/26/23 mL) subcutaneous pen (Lantus Solostar U-100 Insulin) metformin 500 mg tablet,extended 1,000 mg PO QAM 08/09/23 08/26/23 release 24 hr ondansetron HCl 8 mg tablet 8 mg PO Q8H PRN Nausea 08/09/23 08/26/23 tenofovir alafenamide 25 mg tablet 25 mg PO QAM 08/09/23 08/26/23 (Vemlidy) warfarin 2.5 mg tablet 0 mg PO DAILY 08/09/23 08/26/23 Previous Rx's Medication Instructions Recorded ondansetron 4 mg disintegrating 4 mg PO Q6H PRN nausea and 08/08/23 tablet vomiting #20 tabs L.acidop,casei,lactis,rham-B.lact,serenity 2 cap PO DAILY #30 caps 08/18/23 625 mg (10 billion cell) capsule (Advanced Probiotic) cholecalciferol (vitamin D3) 50 150 mcg (3 x 50 mcg (2,000 unit)) 08/18/23 mcg (2,000 unit) tablet (Vitamin PO QAM #90 tabs D3) magnesium chloride 64 mg 64 mg PO BID #60 tabs 08/18/23 (magnesium chloride) tablet,delayed release (Mag 64) enoxaparin 80 mg/0.8 mL 70 mg (0.7 mL) subcut Q12H #8 mL 08/28/23 subcutaneous syringe (Lovenox) midodrine 10 mg tablet 20 mg (2 x 10 mg) PO 08/28/23 TID@0800,1200,1700 #180 tabs torsemide 20 mg tablet See Rx Instructions .Route 08/28/23 .COMPLEX #30 tabs Results & Data (ED) Vital Signs Vital Signs - 24 hr 08/26/23 12:55 08/26/23 13:04 08/26/23 13:04 Temperature 36.6 C Temperature Source Temporal Artery Scan Pulse Rate 80 Pulse Rate [Right Finger] 76 Pulse Rhythm Regular Pulse Strength Normal Respiratory Rate 18 20 Respiratory Effort / Characteristics Non-Labored Non-Labored Spontaneous Respiratory Depth Normal Normal Respiratory Pattern Regular Blood Pressure 80/51 L Blood Pressure [Right Arm] 94/57 L Blood Pressure Mean 60 Blood Pressure Mean [Right Arm] 69 Blood Pressure Position Sitting Pulse Oximetry 98 98 98 Oxygen Delivery Method Room Air Room Air Room Air Sepsis Recent Fever Within 48 Hours No Sepsis New/Unexplained Change in Mental Status No Sepsis Action Taken by Nursing No Action Required Home Medications Current Medication List: was personally reviewed by me Laboratory Data Attestation: I reviewed the patient's lab results. 08/28/23 04:39 08/28/23 04:39 Lab Results 08/26/23 08/26/23 Range/Units 13:05 13:57 WBC 7.85 (4.8-10.8) K/ul RBC 4.08 L (4.70-6.10) M/uL Hgb 12.9 L (14.0-18.0) g/dl Hct 39.1 L (42.0-52.0) % MCV 95.8 (80.0-100.0) fL MCH 31.6 (25.0-34.0) pg MCHC 33.0 (32.0-36.0) g/dL RDW Std Deviation 53.6 H (36.4-46.3) fL RDW Coeff of Tobi 15.3 H (11.5-14.5) % Plt Count 424 H (130-400) K/uL MPV 10.6 (9.4-12.4) fL Immature Gran % (Auto) 1.5 % Neut % (Auto) 74.6 % Lymph % (Auto) 8.4 % [place] % (Auto) 11.7 % Eos % (Auto) 3.3 % Baso % (Auto) 0.5 % Neut # (Auto) 5.85 (1.40-6.50) K/uL Lymph # (Auto) 0.66 L (1.20-3.40) K/uL [place] # (Auto) 0.92 H (0.11-0.59) K/uL Eos # (Auto) 0.26 (0.00-0.50) K/uL Baso # (Auto) 0.04 (0.00-0.20) K/uL Immature Gran # (Auto) 0.12 (0.01-0.20) K/uL Sodium 132 L (136-145) mmol/L Potassium 5.0 (3.5-5.1) mmol/L Chloride 93 L (98-107) mmol/L Carbon Dioxide 31 (21-32) mmol/L Anion Gap 8 (3-11) BUN 28 H (6-23) mg/dl Creatinine 1.80 H (0.6-1.4) mg/dl Est Cr Clr Drug Dosing 37.7 ml/min Est GFR ( Amer) 48.7 ml/min Est GFR (Non-Af Amer) 42.0 ml/min BUN/Creatinine Ratio 15.6 (10-20) Glucose 176 H (70-99(Fasting)) mg/dl Calcium 11.0 H (8.6-10.3) mg/dl Magnesium 1.8 (1.7-2.4) mg/dl Total Bilirubin 0.5 (0.2-1.0) mg/dl AST 26 (13-39) U/L ALT 28 (7-52) U/L Alkaline Phosphatase 122 H (34-104) U/L Troponin I High Sens 64.2 H* (0-20) pg/ml Total Protein 5.7 L (6.0-8.3) gm/dl Albumin 3.6 (3.4-5.0) gm/dl Globulin 2.1 L (2.5-4.0) gm/dl Albumin/Globulin Ratio 1.7 (0.9-2) TSH 3.049 (0.300-4.500) uIu/ml Urine Color Yellow Urine Appearance Clear (Clear) Urine pH 5.5 (4.5-7.5) Ur Specific [place] 1.017 (1.000-1.030) Urine Protein 1+ H (Negative) Urine Glucose (UA) Negative (Negative) Urine Ketones Negative (Negative) Urine Blood Negative (Negative) Urine Nitrite Negative (Negative) Urine Bilirubin Negative (Negative) Urine Urobilinogen Negative (Negative) Ur Leukocyte Esterase Negative (Negative) Urine WBC (Auto) 1-5 (0-5) /hpf Urine RBC (Auto) 0-4 (0-4) /hpf U Hyaline Cast (Auto) 5-10 H (0-5) /lpf U Epithel Cells (Auto) 5-10 H (0-5) /lpf Urine Bacteria (Auto) Negative (Negative) Administered Medications Discontinued Medications Acyclovir (Acyclovir 400 Mg Tab) 400 mg PO QPM [facility] Stop: 09/25/23 20:59 Last Admin: 08/27/23 20:50 Dose: 400 mg Documented By: Admin: 08/26/23 20:14 Dose: 400 mg Documented By: AMM Dapsone (Dapsone 25 Mg Tab) 25 mg PO QAM JOSE Stop: 09/26/23 08:59 Last Admin: 08/28/23 08:45 Dose: 25 mg Documented By: Admin: 08/27/23 08:48 Dose: 25 mg Documented By: DLN Duloxetine HCl (Duloxetine Hcl 20 Mg Cap) 40 mg PO [facility] Stop: 09/26/23 08:59 Last Admin: 08/28/23 08:45 Dose: 40 mg Documented By: Admin: 08/27/23 08:48 Dose: 40 mg Documented By: DLN Enoxaparin Sodium (Enoxaparin 80 Mg/0.8 Ml Syr) 70 mg SQ Q12H [facility] Stop: 09/26/23 19:29 Last Admin: 08/28/23 06:35 Dose: 70 mg Documented By: Admin: 08/27/23 20:49 Dose: 70 mg Documented By: AMM Finasteride (Finasteride 5 Mg Tab) 5 mg PO [facility] Stop: 09/26/23 08:59 Last Admin: 08/28/23 08:45 Dose: 5 mg Documented By: Admin: 08/27/23 08:47 Dose: 5 mg Documented By: DLN Folic Acid (Folic Acid 400 Mcg Tab) 400 mcg PO [facility] Stop: 09/26/23 08:59 Last Admin: 08/28/23 08:45 Dose: 400 mcg Documented By: Admin: 08/27/23 08:47 Dose: 400 mcg Documented By: ANTHONYN Heparin Sodium (Porcine) (Heparin 100 Unit/Ml 5ml Flush) 5 ml FLUSH PRN PRN PRN Reason: Flush Stop: 09/25/23 20:47 Last Admin: 08/28/23 08:53 Dose: 5 ml Documented By: DLF Heparin Sodium (Porcine) (Heparin Sod 5,000 Unit/0.5 Ml Vial) 5,000 units SQ Q8 [facility] Stop: 09/25/23 21:59 Last Admin: 08/27/23 14:22 Dose: 5,000 units Documented By: Admin: 08/27/23 06:25 Dose: 5,000 units Documented By: Admin: 08/26/23 21:48 Dose: 5,000 units Documented By: MAURY Sodium Chloride (Nss) 1,000 mls @ 999 mls/hr IV .Q1H1M [facility] Stop: 08/26/23 14:15 Last Infusion: 08/26/23 14:20 Dose: Infused Documented By: Admin: 08/26/23 13:18 Dose: 999 mls/hr Documented By: SEVERO Sodium Chloride (Nss) 1,000 mls @ 75 mls/hr IV .Q10Q22R [facility] Stop: 08/27/23 07:55 Last Infusion: 08/27/23 07:53 Dose: Infused Documented By: Admin: 08/26/23 18:50 Dose: 75 mls/hr Documented By: BERNA Insulin Aspart (Insulin Aspart Per Unit Charge) 0 units SC ACHS [facility] Stop: 09/26/23 07:29 Last Admin: 08/28/23 12:18 Dose: Not Given Documented By: Admin: 08/28/23 08:44 Dose: 3 units Documented By: KALIN Co-signed By: ROYCE Admin: 08/27/23 20:51 Dose: Not Given Documented By: Admin: 08/27/23 17:41 Dose: 4 units Documented By: DOMINGO Co-signed By: MABEL Admin: 08/27/23 12:36 Dose: 7 units Documented By: DOMINGO Co-signed By: MAURY(2) Admin: 08/27/23 08:45 Dose: 2 units Documented By: DOMINGO Co-signed By: ELHAM Insulin Glargine (Lantus Per Unit Charge) 10 units SQ QPM [facility] Stop: 09/25/23 20:59 Last Admin: 08/27/23 20:50 Dose: 10 units Documented By: MAURY Co-signed By: MANUEL Admin: 08/26/23 20:15 Dose: 10 units Documented By: MAURY Co-signed By: MANUEL Lactobacillus Acidophilus (Advanced Probiotic 1250 Mg Capsule) 2 cap PO DAILY [facility] Stop: 09/26/23 08:59 Last Admin: 08/28/23 08:45 Dose: 2 cap Documented By: Admin: 08/27/23 08:46 Dose: 2 cap Documented By: DOMINGO Levothyroxine Sodium (Levothyroxine Sodium 50 Mcg Tablet) 50 mcg PO DAILYBB [facility] Stop: 09/26/23 06:29 Last Admin: 08/28/23 06:33 Dose: 50 mcg Documented By: Admin: 08/27/23 06:25 Dose: 50 mcg Documented By: MAURY Magnesium Chloride (Magnesium Chloride W/Calcium 64mg Delayed Rel Tab) 64 mg PO BID [facility] Stop: 09/25/23 20:59 Last Admin: 08/28/23 08:44 Dose: 64 mg Documented By: Admin: 08/27/23 20:50 Dose: 64 mg Documented By: Admin: 08/27/23 08:47 Dose: 64 mg Documented By: Admin: 08/26/23 20:14 Dose: 64 mg Documented By: MAURY Midodrine (Midodrine Hcl 10 Mg Tab) 10 mg PO NOW STA Stop: 08/26/23 16:16 Last Admin: 08/26/23 17:26 Dose: 10 mg Documented By: SEVERO Midodrine (Midodrine Hcl 10 Mg Tab) 10 mg PO TID@0800,1200,1700 [facility] Stop: 09/26/23 07:59 Last Admin: 08/27/23 14:19 Dose: Not Given Documented By: Admin: 08/27/23 07:54 Dose: 10 mg Documented By: DOMINGO Midodrine (Midodrine Hcl 10 Mg Tab) 20 mg PO TID@0800,1200,1700 [facility] Stop: 09/26/23 16:59 Last Admin: 08/28/23 12:33 Dose: 20 mg Documented By: Admin: 08/28/23 08:45 Dose: 20 mg Documented By: Admin: 08/27/23 17:17 Dose: 20 mg Documented By: DOMINGO Miscellaneous (Icosapent Ethyl [Vascepa] 1 Gram Capsule ~ Order Awaiting Action) 1 each N/A QS [facility] Stop: 09/26/23 00:00 Last Admin: 08/28/23 09:17 Dose: Not Given Documented By: Admin: 08/27/23 22:00 Dose: Not Given Documented By: Admin: 08/27/23 16:05 Dose: Not Given Documented By: Admin: 08/27/23 08:48 Dose: Not Given Documented By: Admin: 08/26/23 22:59 Dose: Not Given Documented By: MAURY Miscellaneous ( Tenofovir Alafenamide [Vemlidy] 25 Mg Tablet ~ Order Awaiting Action) 1 each N/A QS [facility] Stop: 09/26/23 00:00 Last Admin: 08/28/23 09:17 Dose: Not Given Documented By: Admin: 08/27/23 21:59 Dose: Not Given Documented By: Admin: 08/27/23 16:05 Dose: Not Given Documented By: Admin: 08/27/23 08:48 Dose: Not Given Documented By: Admin: 08/26/23 22:59 Dose: Not Given Documented By: AMGail Pantoprazole Sodium (Pantoprazole 40 Mg Tab) 40 mg PO [facility] Stop: 09/26/23 08:59 Last Admin: 08/28/23 08:45 Dose: 40 mg Documented By: Admin: 08/27/23 08:48 Dose: 40 mg Documented By: DOMINGO Vitamin D (Cholecalciferol 1,000 Units 25 Mcg Tab) 6,000 units PO [facility] Stop: 09/26/23 08:59 Last Admin: 08/28/23 08:45 Dose: 6,000 units Documented By: Admin: 08/27/23 08:47 Dose: 6,000 units Documented By: DOMINGO Warfarin Sodium (Warfarin Sod 1.25 Mg Tab) 1.25 mg PO DAILY@1600 [facility] Stop: 09/26/23 15:59 Last Admin: 08/27/23 17:18 Dose: 1.25 mg Documented By: DOMINGO Warfarin Sodium (Warfarin Sod 2 Mg Tab) 2 mg PO NOW [facility] Stop: 08/26/23 21:02 Last Admin: 08/26/23 21:47 Dose: 2 mg Documented By: MAURY Imaging Data Radiologist's Impression: Chest X-Ray 08/26/23 13:15 XR chest 1V portable HISTORY: 53 years-old Male weakness acute weakness COMPARISON: 08/17/2023 TECHNIQUE: AP view of the chest FINDINGS: Cardiac silhouette is enlarged. Right IJ Wjywue-x-Jbeo catheter is again noted with distal tip in the expected location of the inferior SVC. No pneumothorax, or overt pulmonary edema. Pulmonary vascular congestion. Trace pleural effusions have decreased in size from prior. There is also improved aeration of the lung bases. Bones appear grossly intact. IMPRESSION: 1. Cardiomegaly with pulmonary vascular congestion. 2. Trace pleural effusions with improved aeration of the lung bases. ACT 112: Negative or not required by law. The above report was generated using voice recognition software. It may contain grammatical, syntax or spelling errors. Electronically signed by: Blade Larry M.D. 08/26/2023 2:32 PM Discharge Plan Visit Data Chief Complaint: Hypotension Stated Complaint: LOW BP, DIZZY ED Provider: Ulises Bran Discharge Problem: Hypotension, ARSENIO (acute kidney injury), Amyloidosis Patient Disposition: Admitted As Inpatient Discharge Instructions Interventions: ED Discharge Assessment Last Done: 08/26/23 18:11
[2023-08-26] MEDS ORDERED: SODIUM CHLORIDE 0.9% 1,000 ML IV SCH ×2 (13:15→18:36)
[2023-08-26 13:52] LABS: Basophils # (auto) 0.04 K/uL (0.00-0.20); Basophils % (auto) 0.5 %; Eosinophils # (auto) 0.26 K/uL (0.00-0.50); Eosinophils % (auto) 3.3 %; Hematocrit (blood only) 39.1 % (42.0-52.0); Hemoglobin 12.9 g/dl (14.0-18.0); Immature Granulocytes # (auto) 0.12 K/uL (0.01-0.20); Immature Granulocytes % (auto) 1.5 %; Lymphocytes # (auto) 0.66 K/uL (1.20-3.40); Lymphocytes % (auto) 8.4 %; Mean Corpuscular Hemoglobin 31.6 pg (25.0-34.0); Mean Corpuscular Volume 95.8 fL (80.0-100.0); Mean Platelet Volume 10.6 fL (9.4-12.4); Monocytes # (auto) 0.92 K/uL (0.11-0.59); Monocytes % (auto) 11.7 %; Neutrophils # (auto) 5.85 K/uL (1.40-6.50); Neutrophils % (auto) 74.6 %; Platelet Count 424 K/uL (130-400); RDW Coefficient of Variation 15.3 % (11.5-14.5); RDW Standard Deviation 53.6 fL (36.4-46.3); Red Blood Count 4.08 M/uL (4.70-6.10); White Blood Count 7.85 K/ul (4.8-10.8)
[2023-08-26 14:20] LABS: Albumin Globulin Ratio 1.7 (0.9-2); Albumin Level 3.6 gm/dl (3.4-5.0); BUN Creatinine Ratio 15.6 (10-20); Bilirubin,Total 0.5 mg/dl (0.2-1.0); Creatinine Clr Calc Pharmacy 37.7 ml/min; Est GFR (African American) 48.7 ml/min; Globulin 2.1 gm/dl (2.5-4.0); Magnesium 1.8 mg/dl (1.7-2.4); Total Protein 5.7 gm/dl (6.0-8.3)
[2023-08-26 14:29] LABS: Appearance Urine Clear (Clear); Bacteria Urine Automated Negative (Negative); Bilirubin Urine Negative (Negative); Blood Urine Negative (Negative); Color Urine Yellow; Glucose Urine UA Negative (Negative); Ketones Urine Negative (Negative); Leukocyte Esterase Urine Negative (Negative); Nitrite Urine Negative (Negative); Protein Urine 1+ (Negative); RBC Urine Automated 0-4 /hpf (0-4); Specific Gravity Urine 1.017 (1.000-1.030); Urobilinogen Urine Negative (Negative); pH Urine 5.5 (4.5-7.5)
[2023-08-26 14:33] LABS: Thyroid Stimulating Hormone 3.049 uIu/ml (0.300-4.500)
--- NOTE | 2023-08-26 14:34 | XRay Report ---
XR chest 1V portable HISTORY: 53 years-old Male weakness acute weakness COMPARISON: 08/17/2023 TECHNIQUE: AP view of the chest FINDINGS: Cardiac silhouette is enlarged. Right IJ Rmutec-u-Fauc catheter is again noted with distal tip in the expected location of the inferior SVC. No pneumothorax, or overt pulmonary edema. Pulmonary vascular congestion. Trace pleural effusions have decreased in size from prior. There is also improved aerati on of the lung bases. Bones appear grossly intact. IMPRESSION: 1. Cardiomegaly with pulmonary vascular congestion. 2. Trace pleural effusions with improved aeration of the lung bases. ACT 112: Negative or not required by law. The above report was generated using voice recognition software. It may contain grammatical, syntax o r spelling errors. Electronically signed by: Blade Larry M.D. 08/26/2023 2:32 PM
[2023-08-26] MEDS ORDERED: MIDODRINE HCL 10 MG TAB PO STA (16:15)
--- NOTE | 2023-08-26 16:17 | History & Physical Report ---
Date of Service August 26, 2023 Assessment & Plan (1) Hypotension: Plan: 53-year-old male with past med significant for type 2 diabetes, hyperlipidemia, obstructive sleep apnea, paroxysmal atrial fibrillation, cardiac amyloidosis, chronic heart failure with preserved ejection fraction, nonocclusive coronary disease, CKD stage III, congenital solitary right kidney, BPH, peripheral neuropathic pain, chemotherapy-induced neuropathy, degeneration of lumbosacral sacral disc, multiple myeloma without remission, statin intolerance comes because of hypotension and weakness. Hypotension Patient takes midodrine but not helping Will hold his torsemide Give gentle fluids for about 1 L and closely monitor volume overload as patient recently had CHF with IV fluids when he was admitted for Salmonella diarrhea Continue midodrine Follow echo Consult cardiology in a.m. ARSENIO and currently stage III Congenital solitary right kidney Baseline creatinine 1.7 Plan creatinine 1.8 Holding torsemide Getting fluids Follow labs Elevated troponin mild Has chronic elevation No chest pain or shortness of breath Will follow serial enzymes and echo History of chronic heart failure with reduced ejection fraction Cardiac amyloidosis Echo in 02/2023 EF of 42% Currently holding torsemide and potassium supplement Getting gentle fluids Monitor for volume overload History of multiple myeloma Chemo as per heme-onc On dapsone, acyclovir, tenofovir Diabetes Continue Lantus Hold metformin Insulin sliding scale Will monitor History of A-fib On Coumadin Amiodarone stopped Follow PT/INR. Hypothyroidism On Synthyroid History of CAD nonocclusive On Coumadin and Repatha BPH on Proscar GERD on Protonix Obstructive sleep apnea CPAP nightly DVT prophylaxis on Coumadin follow PT/INR. Heparin subcu while INR subtherapeutic Disposition telemetry floor Full code History of Present Illness Chief Complaint: hypotension and weakness Primary Care Provider: Jaime Garcia MD 53-year-old male with past med significant for type 2 diabetes, hyperlipidemia, obstructive sleep apnea, paroxysmal atrial fibrillation, cardiac amyloidosis, chronic heart failure with preserved ejection fraction, nonocclusive coronary disease, CKD stage III, congenital solitary right kidney, BPH, peripheral neuropathic pain, chemotherapy-induced neuropathy, degeneration of lumbosacral sacral disc, multiple myeloma without remission, statin intolerance comes because of hypotension and weakness. Patient takes midodrine. He held his torsemide for last couple of days but his blood pressure was not improving. He was feeling dizzy and weak and difficulty ambulating which prompted him to come to the ER. Denies any chest pain or shortness of breath. No headaches. Vision is okay. No cough. No fevers. Recently was admitted for Salmonella diarrhea, currently resolved. Normal bowel and bladder movements. No abdominal pain. Appetite is okay. Currently resting comfortably. Past medical history. As mentioned above. Past surgical history. Colonoscopy. Cystourethroscopy with plans prostatic implant. EGD. EGD with endoscopic ultrasound. S/p autologous stem cell transplantation 2014. Bilateral cataract surgery. Vasectomy. Social history. . No smoking. Alcohol rarely. No drug use. Family history. No family history on file. Allergies Allergy/AdvReac Type Severity Reaction Status Date / Time NSAIDS (Non-Steroidal AdvReac Advised by Verified 08/26/23 14:53 Anti-Inflamma nephrology to avoid d/t CKD [id number] Reductase AdvReac Muscle Pain Verified 08/26/23 14:53 Inhibitor Home Medications Medication Instructions Recorded Confirmed Type acyclovir 400 mg tablet 400 mg PO QPM 05/16/18 08/26/23 History albuterol sulfate 90 mcg/actuation 2 puff inhalation Q6 PRN Cough or 05/16/18 08/26/23 History aerosol inhaler (Ventolin HFA) SOB pantoprazole 20 mg tablet,delayed 20 mg PO QAM 09/02/20 08/26/23 History release (Protonix) potassium chloride 10 mEq 10 meq PO QAM 09/02/20 08/26/23 History tablet,extended release dapsone 25 mg tablet 25 mg PO QAM 02/26/22 08/26/23 History evolocumab 140 mg/mL subcutaneous 140 mg subcut UD 02/26/22 08/26/23 History pen injector (Repatha SureClick) folic acid 400 mcg tablet 400 mcg PO QAM 02/26/22 08/26/23 History finasteride 5 mg tablet 5 mg PO QAM 07/24/22 08/26/23 History oxycodone 5 mg tablet 5 mg PO Q6H PRN Pain 07/24/22 08/26/23 History trazodone 50 mg tablet 50 mg PO HS PRN Insomnia 07/24/22 08/26/23 History dexamethasone 4 mg tablet 16 mg PO .TWICE A MONTH 05/02/23 08/26/23 History duloxetine 20 mg capsule,delayed 40 mg PO QAM 05/02/23 08/26/23 History release sprinkle icosapent ethyl 1 gram capsule 2 g PO BID 05/02/23 08/26/23 History (Vascepa) immun glob G 4 gram/20 mL(20 0 ml subcut UD 05/02/23 08/26/23 History %)-prol-IgA 0-50 mcg/mL subcutaneous soln (Hizentra) levothyroxine 50 mcg tablet 50 mcg PO QAM 05/02/23 08/26/23 History torsemide 20 mg tablet 0 mg PO QAM 05/02/23 08/26/23 History ondansetron 4 mg disintegrating 4 mg PO Q6H PRN nausea and 08/08/23 08/26/23 Rx tablet vomiting #20 tabs Nss 0.9% W Daratumumab 16mg/Kg 1 dose IV .EVERY 14 DAYS 08/09/23 08/26/23 History acetaminophen 325 mg tablet 325 mg PO UD 08/09/23 08/26/23 History diphenhydramine HCl 50 mg capsule 50 mg PO UD 08/09/23 08/26/23 History epinephrine 0.3 mg/0.3 mL 0.3 mg IM UD PRN severe reaction 08/09/23 08/26/23 History injection, auto-injector (EpiPen) insulin glargine 100 unit/mL (3 10 unit subcut QPM 08/09/23 08/26/23 History mL) subcutaneous pen (Lantus Solostar U-100 Insulin) metformin 500 mg tablet,extended 1,000 mg PO QAM 08/09/23 08/26/23 History release 24 hr midodrine 10 mg tablet 10 mg PO TID 08/09/23 08/26/23 History ondansetron HCl 8 mg tablet 8 mg PO Q8H PRN Nausea 08/09/23 08/26/23 History tenofovir alafenamide 25 mg tablet 25 mg PO QAM 08/09/23 08/26/23 History (Vemlidy) warfarin 2.5 mg tablet 0 mg PO DAILY 08/09/23 08/26/23 History L.acidop,casei,lactis,rham-B.lact,serenity 2 cap PO DAILY #30 caps 08/18/23 08/26/23 Rx 625 mg (10 billion cell) capsule (Advanced Probiotic) cholecalciferol (vitamin D3) 50 150 mcg (3 x 50 mcg (2,000 unit)) 08/18/23 08/26/23 Rx mcg (2,000 unit) tablet (Vitamin PO QAM #90 tabs D3) magnesium chloride 64 mg 64 mg PO BID #60 tabs 08/18/23 08/26/23 Rx (magnesium chloride) tablet,delayed release (Mag 64) Past Med/Surg History Medical History CAD (coronary artery disease) Nonobstructive GERD (gastroesophageal reflux disease) Atrial fibrillation Follows with [facility]/Tim SAUCEDO Low back problem BPH (benign prostatic hyperplasia) CKD (chronic kidney disease) Follows with [facility]/Dr. 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 Amaral [facility] Surgical History History of surgery vasectomy reversal History of surgery Urolift History of vascular access device Right chest port (type unknown) History of cataract surgery History of cardiac cath Right heart cath (2017) History of colonoscopy History of esophagogastroduodenoscopy (EGD) H/O vasectomy Family History Father No problems noted. Mother No problems noted. Other Adopted Social History Smoking Status: Never smoker Tobacco Type: Cigarettes Second Hand Exposure: No; Do You Dip or Chew Tobacco: No; Tobacco Cessation Education Requested by Patient: No Hx Alcohol Use: No Hx Substance Use: No Preferred Language: Maltese Communication Ability: Effective Personnel Records Clerk Required: No Beliefs That Will Affect Care: None marital status: marital status details: twice - 3 children in total between the 2 marriages Current Living Situation: Spouse Current Living Situation Comment: lives in [place] current occupational status: disabled current occupation: previously worked at [employer] Other Information That Helps Us Care for You: No Feels Safe at Home: Yes Safety Concerns: Feels Safe At This Time Assistive Devices: Cane, CPAP and Glasses Review of Systems Review of Systems: All systems reviewed & are unremarkable except as noted in HPI & below Physical Exam Physical Exam: General- Not in distress Head- atraumatic Eyes- , EOMI. ENT- oropharynx clear Neck- supple, no JVD Lungs- clear to auscultation no wheezing or crackles. Heart- regular rhythm; no murmur, no gallop. Abdomen- normal bowel sounds, soft, nontender, no distension. Extremities- no pretibial edema Neuro- alert, oriented x 3; EOMI; no facial palsy; no dysarthria; moves extremities. Results & Data Results & Data Vital Signs (Past 12 Hours) Vital Signs Temp Pulse Pulse Resp BP BP Pulse Ox 08/26/23 15:55 78 16 95/60 L 95 08/26/23 14:53 78 22 91/54 L 96 08/26/23 13:18 71 08/26/23 13:17 72 20 98 08/26/23 13:04 76 20 94/57 L 98 08/26/23 13:04 98 08/26/23 12:55 36.6 C 80 18 80/51 L 98 O2 Del Method 08/26/23 15:55 Room Air 08/26/23 14:53 Room Air 08/26/23 13:18 08/26/23 13:17 Room Air 08/26/23 13:04 Room Air 08/26/23 13:04 Room Air 08/26/23 12:55 Room Air Diagnostic Findings Laboratory Results WBC 7.85 K/ul (4.8-10.8) 08/26/23 13:05 RBC 4.08 M/uL (4.70-6.10) L 08/26/23 13:05 Hgb 12.9 g/dl (14.0-18.0) L 08/26/23 13:05 Hct 39.1 % (42.0-52.0) L 08/26/23 13:05 MCV 95.8 fL (80.0-100.0) 08/26/23 13:05 MCH 31.6 pg (25.0-34.0) 08/26/23 13:05 MCHC 33.0 g/dL (32.0-36.0) 08/26/23 13:05 RDW Std Deviation 53.6 fL (36.4-46.3) H 08/26/23 13:05 RDW Coeff of [place] 15.3 % (11.5-14.5) H 08/26/23 13:05 Plt Count 424 K/uL (130-400) H 08/26/23 13:05 MPV 10.6 fL (9.4-12.4) 08/26/23 13:05 Immature Gran % (Auto) 1.5 % 08/26/23 13:05 Neut % (Auto) 74.6 % 08/26/23 13:05 Lymph % (Auto) 8.4 % 08/26/23 13:05 [place] % (Auto) 11.7 % 08/26/23 13:05 Eos % (Auto) 3.3 % 08/26/23 13:05 Baso % (Auto) 0.5 % 08/26/23 13:05 Neut # (Auto) 5.85 K/uL (1.40-6.50) 08/26/23 13:05 Lymph # (Auto) 0.66 K/uL (1.20-3.40) L 08/26/23 13:05 [place] # (Auto) 0.92 K/uL (0.11-0.59) H 08/26/23 13:05 Eos # (Auto) 0.26 K/uL (0.00-0.50) 08/26/23 13:05 Baso # (Auto) 0.04 K/uL (0.00-0.20) 08/26/23 13:05 Immature Gran # (Auto) 0.12 K/uL (0.01-0.20) 08/26/23 13:05 PT 15.5 Seconds (9.0-12.0) H 08/26/23 16:15 INR 1.4 (0.9-1.1) H 08/26/23 16:15 Sodium 132 mmol/L (136-145) L 08/26/23 13:05 Potassium 5.0 mmol/L (3.5-5.1) 08/26/23 13:05 Chloride 93 mmol/L (98-107) L 08/26/23 13:05 Carbon Dioxide 31 mmol/L (21-32) 08/26/23 13:05 Anion Gap 8 (3-11) 08/26/23 13:05 BUN 28 mg/dl (6-23) H 08/26/23 13:05 Creatinine 1.80 mg/dl (0.6-1.4) H 08/26/23 13:05 Est Cr Clr Drug Dosing 37.7 ml/min 08/26/23 13:05 Est GFR ( Amer) 48.7 ml/min 08/26/23 13:05 Est GFR (Non-Af Amer) 42.0 ml/min 08/26/23 13:05 BUN/Creatinine Ratio 15.6 (10-20) 08/26/23 13:05 Glucose 176 mg/dl (70-99(Fasting)) H 08/26/23 13:05 Calcium 11.0 mg/dl (8.6-10.3) H 08/26/23 13:05 Magnesium 1.8 mg/dl (1.7-2.4) 08/26/23 13:05 Total Bilirubin 0.5 mg/dl (0.2-1.0) 08/26/23 13:05 AST 26 U/L (13-39) 08/26/23 13:05 ALT 28 U/L (7-52) 08/26/23 13:05 Alkaline Phosphatase 122 U/L (34-104) H 08/26/23 13:05 Troponin I High Sens 64.2 pg/ml (0-20) H* 08/26/23 13:05 Total Protein 5.7 gm/dl (6.0-8.3) L 08/26/23 13:05 Albumin 3.6 gm/dl (3.4-5.0) 08/26/23 13:05 Globulin 2.1 gm/dl (2.5-4.0) L 08/26/23 13:05 Albumin/Globulin Ratio 1.7 (0.9-2) 08/26/23 13:05 TSH 3.049 uIu/ml (0.300-4.500) 08/26/23 13:05 Urine Color Yellow 08/26/23 13:57 Urine Appearance Clear (Clear) 08/26/23 13:57 Urine pH 5.5 (4.5-7.5) 08/26/23 13:57 Ur Specific [place] 1.017 (1.000-1.030) 08/26/23 13:57 Urine Protein 1+ (Negative) H 08/26/23 13:57 Urine Glucose (UA) Negative (Negative) 08/26/23 13:57 Urine Ketones Negative (Negative) 08/26/23 13:57 Urine Blood Negative (Negative) 08/26/23 13:57 Urine Nitrite Negative (Negative) 08/26/23 13:57 Urine Bilirubin Negative (Negative) 08/26/23 13:57 Urine Urobilinogen Negative (Negative) 08/26/23 13:57 Ur Leukocyte Esterase Negative (Negative) 08/26/23 13:57 Urine WBC (Auto) 1-5 /hpf (0-5) 08/26/23 13:57 Urine RBC (Auto) 0-4 /hpf (0-4) 08/26/23 13:57 U Hyaline Cast (Auto) 5-10 /lpf (0-5) H 08/26/23 13:57 U Epithel Cells (Auto) 5-10 /lpf (0-5) H 08/26/23 13:57 Urine Bacteria (Auto) Negative (Negative) 08/26/23 13:57 Impressions Chest X-Ray 08/26/23 13:15 XR chest 1V portable HISTORY: 53 years-old Male weakness acute weakness COMPARISON: 08/17/2023 TECHNIQUE: AP view of the chest FINDINGS: Cardiac silhouette is enlarged. Right IJ [id number] catheter is again noted with distal tip in the expected location of the inferior SVC. No pneumothorax, or overt pulmonary edema. Pulmonary vascular congestion. Trace pleural effusions have decreased in size from prior. There is also improved aeration of the lung bases. Bones appear grossly intact. IMPRESSION: 1. Cardiomegaly with pulmonary vascular congestion. 2. Trace pleural effusions with improved aeration of the lung bases. ACT 112: Negative or not required by law. The above report was generated using voice recognition software. It may contain grammatical, syntax or spelling errors. Electronically signed by: Blade Larry M.D. 08/26/2023 2:32 PM ECG Additional Comments: ECG. Normal sinus rhythm rate of 76. Possible left atrial enlargement. ST abnormality inferior lateral leads Code Status & VTE Plan VTE Prophylaxis Plan VTE Prophylaxis will be ordered: Yes
[2023-08-26 16:49] LABS: INR 1.4 (0.9-1.1); Prothrombin Time 15.5 Seconds (9.0-12.0)
[2023-08-26 17:13] LABS: Troponin I High Sensitivity 64.2 pg/ml (0-20)
[2023-08-26] MEDS ORDERED: traZODone HCL 50 MG TAB PO PRN (18:36)
[2023-08-26] MEDS ORDERED: oxyCODONE HCL IR 5 MG TAB (IMMEDIATE RELEASE) PO PRN (18:36)
[2023-08-26] MEDS ORDERED: ALBUTEROL HFA 8 GM INHALER INH PRN (18:36)
[2023-08-26] MEDS ORDERED: POLYETHYLENE (MIRALAX) 17 GM PACK PO PRN (18:36)
[2023-08-26] MEDS ORDERED: NITROGLYCERIN SL 0.4 MG/TAB TAB SL PRN (18:36)
[2023-08-26] MEDS ORDERED: ACETAMINOPHEN 325 MG TAB PO PRN (18:36)
[2023-08-26] MEDS: MAGNESIUM CHLORIDE W/CALCIUM 64MG DELAYED REL TAB PO SCH (20:14)
[2023-08-26] MEDS: ACYCLOVIR 400 MG TAB PO SCH (20:14)
[2023-08-26] MEDS: LANTUS PER UNIT CHARGE SQ SCH (20:15)
[2023-08-26] MEDS ORDERED: HEPARIN 100 UNIT/ML 5ML FLUSH FLUSH PRN (20:48)
[2023-08-26] MEDS ORDERED: WARFARIN SOD 2 MG TAB PO STA (21:01)
[2023-08-26] MEDS: HEPARIN SOD 5,000 UNIT/0.5 ML VIAL SQ SCH (21:48)
[2023-08-26] MEDS ORDERED: GLUCAGON FOR INJ 1 MG VIAL SQ PRN (21:49)
[2023-08-26] MEDS ORDERED: CARBOHYDRATES FOR HYPOGLYCEMIA PO PRN (21:49)
[2023-08-26] MEDS ORDERED: GLUCOSE 40% GEL 15 GM TUBE PO PRN (21:49)
[2023-08-26] MEDS ORDERED: GLUCOSE 10 TAB/TUBE PO PRN (21:49)
[2023-08-26] MEDS ORDERED: DEXTROSE 50% 50 ML SYRINGE IV PRN (21:49)
--- OUTSIDE RECORDS SUMMARY | 2023-08-26 22:58 | External Medical Summary | Summary of Care ---
Author Name Unknown Organization [facility] Address [address] [place] [address] Phone [phone] Care Team Providers Care Sports Medicine Physician Name Role Phone Jaime Garcia MD Primary Care Provide r Reason for Visit * Reason Onset Date Comments Order Request 08/22/2023 Encounter Details Date Type Department Care Team (Late st Contact Info) Description 08/22/2023 Telephone Family Medicine [address] [phone] Jaime Garcia MD [address] [place] [address] [place], [place] [id number] Order Request Allergies Active Allergy Reactions Criticality Noted Date Comments Atorvastatin Muscle pain High 03/30/2019 Ezetimibe Muscle pain High 01/25/2020 documented as of this encounter (statuses as of 08/24/2023) Medications Medication Sig Dispensed Refills Start Date [...] nostril daily. 16 g 1 01/15/2021 Active Imiquimod 5 % External Cream (Aldara)Indication s:Anal condyloma Apply topically to affected area at bedtime. 3 times per week and wash off after 6-10 hours. Use up to 16 weeks Given by [facility] 12 Packet 3 01/19/2021 Active OneTouch Ultra Blue In Vitro Strip (Glucose Blood)Indications: Type 2 diabetes mellitus with hemoglobin A1c goal of less than 7.0% ([facility]) Use as directed daily. Test once daily DxE11.9 100 Strip 5 03/02/2021 Active LancetsIndications :Type 2 diabetes mellitus with hemoglobin A1c goal of less than 7.0% ([facility]) Test once daily DxE11.9. 100 Each 5 03/02/2021 Active Albuterol Sulfate HFA 108 (90 Base) MCG/ACT Inhalation Aerosol SolutionIndication s:Acute bronchitis, antibiotics not indicated Inhale 2 Puffs by mouth every 6 hours as needed for Cough or Shortness of Breath. 54 g 1 06/30/2021 Active Acyclovir 400 MG Oral Tablet (Zovirax)Indicatio ns:Lambda light chain myeloma (HCC) Take one tablet once daily 180 Tablet 3 12/14/2021 Active Torsemide 20 MG Oral Tablet (Demadex)Indicatio ns:takes extra tab for swelling, wt gain Take 1 Tablet by mouth in the morning. 0 Active Ondansetron HCl 8 MG Oral Tablet (Zofran)Indication s:Nausea Take 1 Tablet (8 mg) by mouth every 8 hours as needed for Nausea. 30 Tablet 3 08/26/2022 Active Prochlorperazine Maleate 10 MG Oral Tablet (Compazine) Take 1 Tablet by mouth every 6 hours as needed for Nausea. Take 1 tablet by mouth between 1st and 2nd Zofran doses and between the 2nd and 3rd Zofran doses. Do this when you need her not for the 1st 2 days and then as you need for nausea 28 Tablet 1 08/31/2022 Active Hizentra 4 GM/20ML Subcutaneous Solution (immune globulin [...] mouth . 30 Tablet 3 09/16/2022 Active EpiPen 2-Konstantin 0.3 MG/0.3ML Injection Solution Auto-injector For a severe reaction: Inject in outer thigh following instructions on package and go to the Emergency room. 2 Each 3 10/05/2022 Active Dexamethasone 4 MG Oral Tablet (Decadron)Indicati ons:Multiple myeloma not having achieved remission (HCC) 5 tabs 2 times monthly 10 Tablet 5 10/25/2022 Active Bisacodyl 5 MG Oral Tablet Delayed [...] by mouth daily as needed. 0 Active Midodrine HCl 10 MG Oral Tablet (Proamatine)Indica tions:takes 1-3 tabs depending on bp as needed Take 1 Tablet by mouth every morning. Take 0.5 tablet shortly before or upon rising in the morning, at midday, and in the late afternoon (not later than 6 PM) 135 Tablet 3 12/13/2022 Active oxyCODONE-Acetamin ophen 5-325 MG Oral Tablet (Percocet) Take 1 Tablet by mouth every 6 hours as needed for Pain, Severe. 10 Tablet 0 03/17/2023 Active Silodosin 8 MG Oral Capsule (Rapaflo) Take 1 Capsule by mouth in the morning. 30 Capsule 1 03/17/2023 Active Folic Acid 400 MCG Oral TabletIndications: Low folate TAKE ONE TABLET BY MOUTH IN THE MORNING 90 Tablet 1 02/05/2023 02/05/20 24 Active Levothyroxine Sodium 50 MCG Oral Tablet (Levoxyl) TAKE 1 TABLET BY MOUTH DAILY AT LEAST 30 MINUTES PRIOR TO FIRST MEAL OF THE DAY OR OTHER MEDICATIONS 90 Tablet 3 01/11/2023 01/11/20 24 Active Additional Information Patient taking differently: 50 mcg Oral [id number], Reported on 04/14/2023 Pantoprazole Sodium 20 MG Oral Tablet Delayed Release (Protonix)Indicati ons:Gastroesophage al reflux disease without esophagitis TAKE ONE TABLET BY MOUTH EVERY DAY IN THE MORNING 90 Tablet 2 12/26/2022 12/26/19 24 Active Potassium Chloride ER 10 MEQ Oral Tablet Extended ReleaseIndications :Chronic diastolic congestive heart failure (HCC) TAKE ONE TABLET BY MOUTH EVERY DAY 90 Tablet 3 12/13/2022 12/13/19 24 Active Warfarin Sodium 2.5 MG Oral Tablet (Coumadin)Indicati ons:Atrial fibrillation, unspecified type (HCC),Anticoagulat ion management encounter,oysterman current use of anticoagulant therapy,Paroxysmal atrial fibrillation (HCC) TAKE ONE TABLET BY MOUTH ON TUESDAY AND TUESDAY, AND ONE-HALF TABLET ALL OTHER DAYS OR DIRECTED BY ANTICOAGULATION CLINIC 75 Tablet 3 11/10/2022 11/10/19 24 Active Additional Information Patient taking differently: 0.5 Tablet Oral Daily(AM), Reported on 08/20/2023 Dexamethasone 4 MG Oral Tablet (Decadron) TAKE 5 TABLETS BY MOUTH TWICE A MONTH 10 Tablet 5 10/27/2022 10/27/19 24 Active Tenofovir Alafenamide Fumarate 25 MG Oral Tablet (Vemlidy) Take 1 tablet by mouth in the morning. 90 Tablet 1 03/28/2023 Active Finasteride 5 MG Oral Tablet (Proscar) TAKE 1 TABLET BY MOUTH IN THE MORNING 90 Tablet 3 04/12/2023 04/11/20 24 Active Dapsone 25 MG Oral TabletIndications: Multiple myeloma in relapse (HCC) TAKE ONE TABLET BY MOUTH EVERY DAY 90 Tablet 1 04/26/2023 04/25/20 24 Active DULoxetine HCl 20 MG Oral Capsule Delayed Release Particles (Cymbalta) Take 2 Capsules by mouth in the morning. 180 Capsule 1 06/06/2023 Active Cholecalciferol 50 MCG (1999 UT) Oral TabletIndications: Lambda light chain myeloma (HCC),Multiple myeloma without remission (HCC) Take 50 mcg by mouth in the morning. 30 Tablet 5 06/14/2023 Active Additional Information Patient taking differently: 150 mcgOral Daily(AM), Reported on 08/20/2023 Repatha SureClick 140 MG/ML Subcutaneous Solution Auto-injector (evolocumab)Indica tions:Dyslipidemia , goal LDL below 70 INJECT 140MG (1 INJECTION) UNDER THE SKIN EVERY 14 DAYS. REMOVE FROM REFRIGERATOR 30 MINUTES PRIOR TO INJECTION 6 mL 3 06/15/2023 06/14/20 24 Active metFORMIN HCl ER 500 MG Oral Tablet Extended Release 24 Hour (Glucophage XR)Indications:Typ e 2 diabetes mellitus with hemoglobin A1c goal of less than 7.0% ([facility]) Take 2 Tablets by mouth in the morning. 180 Tablet 1 07/11/2023 Active Insulin Glargine Solostar 100 UNIT/ML Subcutaneous Solution Pen-injector (Lantus SoloStar) Inject 10 Units under the skin every evening. 15 mL 3 07/19/2023 Active Pen [place] 32G X 4 MM Use as directed. Inject Lantus once daily. 50 Each 3 07/19/2023 Active Icosapent Ethyl 1 GM Oral Capsule (Vascepa)Indicatio ns:Hyperlipidemia with target LDL less than 70 Take 2 Capsules by mouth 2 times a day with morning and evening meals. Swallow capsules whole, do not open or break. 360 Capsule 3 07/20/2023 Active oxyCODONE HCl 5 MG Oral Tablet (Oxy IR)Indications:Mul tiple myeloma in relapse (HCC) Take 1 Tablet by mouth every 4 hours as needed for breakthrough pain. 30 Tablet 0 08/18/2023 Active Advanced Probiotic-14 Oral Capsule Take 2 Capsules by mouth. 0 Active Sulfamethoxazole-T rimethoprim 800-160 MG Oral Tablet (Bactrim DS) Take 1 Tablet by mouth in the morning and 1 Tablet before bedtime. 0 Active Magnesium Chloride 64 MG Oral Tablet Delayed Release (Mag64) Take 1 Tablet by mouth in the morning and 1 Tablet before bedtime. 0 Active documented as of this encounter (statuses as of 08/24/2023) Active Problems Problem Noted Date Diagnosed Date Chemotherapy-induced neuropathy 11/09/2022 Chronic heart failure with preserved ejection fr action 06/10/2022 Congenitally solitary right kidney 05/31/2022 BPH with obstruction/lower urinary tract symptom s 05/31/2022 Chronic kidney disease, stage 3b 03/22/2022 Overview: Per CKD protocol Type 2 diabetes mellitus wit h stage 3b chronic kidney disease 03/22/2022 Overview: Per CKD protocol Immunosuppressed status 02/20/2022 Hyperlipidemia with target LDL less than 70 09/13 Coronary artery disease, non-occlusive Current chronic use of systemic steroids 021 Peripheral neuropathic pain 01/05/2021 Statin intolerance 08/28/2019 DEBBY (obstructive sleep apnea) 06/04/2019 Lambda light chain myeloma 01/25/2019 Type 2 diabetes mellitus wit h hemoglobin A1c goal of less than 7.0% 01/02/2019 Hypogammaglobulinemia 01/02/2019 Organ-limited amyloidosis 12/18/2018 Anxiety 12/18/2018 Senile cardiac amyloidosis 03/28/2018 PAF (paroxysmal atrial fibrillation) 01/02/2018 AL amyloidosis 01/02/2018 Multiple myeloma without remission 06/14/2014 Overview: Dr Rodriges/ [facility] ADVANCE DIRECTIVE INFORMATION 10/13/2006 Overview: No, Advance Directive brochure offered , patient declined. Degeneration of lumbosacral intervertebral disc 02/19/2005 documented as of this encounter (statuses as of 08/24/2023) Resolved Problems Problem Noted Date Diagnosed Date Resolved Date Type 2 diabetes mellitus wit h stage 3b chronic kidney disease, without long-term current use of insulin 11/09/2022 11/24/2022 Hepatic cirrhosis 09/08/2022 11/11/2022 Chronic kidney disease, stage 3a 02/24/2021 02/25/2022 Overview: Per CKD protocol Type 2 diabetes mellitus wit h stage 3a chronic kidney disease 01/20/2021 03/25/2022 Overview: Per CKD protocol Diabetes mellitus with stage 3 chronic kidney disease 07/21/2020 01/22/2021 Overview: Per CKD protocol CKD stage G3a/A2, GFR 45-59 and albumin creatinine ratio 30-299 mg/g 01/07/2018 03/25/2022 Overview: Per CKD protocol NONE 02/19/2005 Adjustment disorder with depressed mood 12/18/2018 documented as of this encounter (statuses as of 08/24/2023) Immunizations Name Administration Dates Next Due COVID-19, LNP-s, No Preserve , Azar-sucrose, Ages 12+ (Pfizer) 10/06/2021,06/23/2021 Hepatitis B, 20+ yrs 11/20/2019,06/21/2019,05/22 Pneumococcal Conjugate Vacc, 13 Valent (Prevnar) 05/13/2020 Pneumococcal Polysaccharide PPV23 (Pneumovax) 05/22/2019 Seasonal Influenza, PF, 6 M & above, IM , (FluLaval or Fluzone) 08/22/2023,06/10/2022,07/23/2021,07/31,05/22/2019 Seasonal Influenza, Split, I IV3, No Preserve, [...] = 0.6 oz pur e alcohol) rarely PHQ-2 Answer Date Recorded PHQ Adult Total Score 0 01/05/2021 Hunger Vital Sign Answer Date Recorded Within the past 12 months, y ou worried that your food would run out before you got the money to buy more. Never true 02/23/20 22 Within the past 12 months, t he food you bought just didn't last and you didn't have money to get more. Never true 02/22/2022 Sex and Gender Information Value Date Recorded Sex Assigned at Male 02/22/2022 1:14 PM EDT Gender Identity Male 02/22/2022 1:14 PM EDT Sexual Orientation Straight 02/22/2022 1: 14 PM EDT Job Start Date Occupation Industry Not on file Not on file Not on file documented as of this encounter Miscellaneous Notes * Telephone Encounter - Jaime Garcia MD - 08/24/2023 12:10 PM EST I'm repeating his lab on Tuesday - pls see the other encounter - pt will come into the lab * Telephone Encounter - Tim Putnam OSA - 08/22/2023 3:02 PM EST Mary Kate calling with fax number. Fax#: [phone] Attn: Mary Kate * Telephone Encounter - Rufina Ernandez OSA - 08/22/2023 2:54 PM EST Call from Mary Kate at [facility] calling to let PCP know she did a start of care for Home Health for Jerardo today. He told her the hospital recommended follow up blood work one week after discharge on 08/18/23. If PCP wants blood work done fax orders and they can draw it on when she is there. Will call back with fax number documented in this encounter Plan of Treatment Upcoming Encounters Date Type Department Care Team (Late st Contact Info) Description 08/26/2023 2:20 PM EST Anticoagulation Pharmacy, [address] [place] [phone] [place] [id number] 09/01/2023 12:30 PM EST [facility] Visit [facility] [place], [facility] [address] [place] [address] Sulma Seth, BOBBY [address] [place] [address] 09/13/2023 9:00 AM EST [facility] [place] [address] Beth Salter CRNP [address] [place] [phone] 11/23/2023 9:40 AM EDT Office Visit Nephrology, [facility] [address] [facility] [place] [address] Armando Cook MD [address] [facility] [place] [address] Health Maintenance Due Date Last Done Comments HIV Screening 1985 Hepatitis C Screening 01/29/1988 Cologuard 2015 Fecal Occult Blood Test 2015 Sigmoidoscopy 2015 COVID-19 Vaccine (3 - Pfizer risk series) 11/03/2021 10/06/2021, 06/23/2021 Depression Screening 01/05/2022 01/05/2021 Diabetic Foot Exam 12/14/2022 12/14/2021, 0 10/15/2020, 06/25/2019 HbA1c 01/05/2024 07/06/2023, 08/0 11/2022, 03/29/2023, Additional history exists GFR 02/21/2024 08/22/2023, 12/0 01/2023, 07/25/2023, Additional history exists Pneumococcal Vaccine: Pediatrics (0 to 5 Years) and At-Risk Patients (6 to 64 Years) (3 - PPSV23 or PCV20) 05/22/2024 05/13/2020, 05/22/2019 Albumin/Creatinine Ratio 06/22/2024 023, 05/27/2023, 03/25/2023, Additional history exists Diabetic Eye Exam 07/11/2024 07/11/2023, , 06/29/2021, Additional history exists TSH 07/25/2024 07/25/2023, 03/12, 01/31/2023, Additional history exists CKD HGB USE SMARTSET 82264 08/16/202408/16, 07/25/2023, 07/25/2023, Additional history exists CKD PHOS USE SMARTSET 15608 08/16/2024 120 01/2023, 07/25/2023, 07/06/2023, Additional history exists DTaP,Tdap,and Td Vaccines (2 - Td or Tdap) 01/02/2029 01/02/2019 Colonoscopy 09/09/2031 09/09/2021, 08/13, 09/02/2017 Colorectal Cancer Screening 09/09/2031 Hepatitis B Completed 11/20/2019, 06/12, 05/22/2019 Zoster Vaccines Completed 09/30/2020, 07/31/2020 Influenza Vaccine (FLU shot) Completed 07/2023, 06/10/2022, 07/23/2021, Additional history exists GARDASIL-HPV IMMUNIZATION SERIES Aged Out No longer eligible based on patient's age to complete this topic MENINGOCOCCAL (MENACTRA/MENVEO) Aged Out No longer eligible based on patient's age to complete this topic documented as of this encounter Medical Devices Implanted Type Area Saddle Lining Stitcher Device Identifier Shelf Expiration Date Model / Serial / Lot Port Power Mri W/8fr Cath - [id number] Implanted:Qty: 1 on 09/26/2020 by Simone Michelle MD at OR [facility] Right: Chest CR BARD : PERIPHERAL VASCULAR 10/12/2021 [id number] / / [id number] Description:right IJ Lens Intraoc 19.0 - [id number] - [id number] Implanted:Qty: 1 on 02/03/2021 by Chris Sexton MD at OR [facility] Right: Eye BAUSCH & LOMB 09/11/2025 [id number] / [id number] / Lens Intraoc 19.0 - [id number] - [id number] Implanted:Qty: 1 on 02/24/2021 by Chris Sexton MD at OR [facility] Left: Eye BAUSCH & LOMB 10/12/2025 [id number] / [id number] / [id number] System Urolift - [id number] Implanted:Qty: 3 on 03/17/2023 by Devyn Paniagua MD at OR [facility] N/A: Urethra [employer] 11/03/2023 [id number] / / [id number] documented as of this encounter Advance Directives Latest Code Status on File Code Status Date Activated Date Inactivated Comments Full Code 03/17/2023 8:20 AM 03/17/2023 1:36 PM This or dilshad reflects the patients wishes [...] and were consensually agreed upon. Care Teams Sports Medicine Physician Relationship Specialty Start Date End Date Jaime Garcia MD [address] [place] [address] [place] [id number] PCP - General Family Medicine 10/15/20 documented as of this encounter
--- OUTSIDE RECORDS SUMMARY | 2023-08-26 22:58 | External Medical Summary | Summary of Care ---
Author Name Unknown Organization [facility] Address [address] [place] [address] Phone [phone] Care Team Providers Care Index Editor Name Role Phone Jaime Garcia MD Primary Care Provide r Reason for Visit * Reason Onset Date Comments Abnormal Test Results 08/22/2023 Encounter Details Date Type Department Care Team (Late st Contact Info) Description 08/22/2023 Telephone Family Medicine [address] [place] [phone] Jaime Garcia MD [address] [place] [address] [place], [place] [phone] Abnormal Test Results Allergies Active Allergy Reactions Criticality Noted Date Comments Atorvastatin Muscle pain High 03/30/2019 Ezetimibe Muscle pain High 01/25/2020 documented as of this encounter (statuses as of 08/23/2023) Medications Medication Sig Dispensed Refills Start Date [...] Use up to 16 weeks Given by [facility] 12 Packet 3 01/19/2021 Active OneTouch Ultra Blue In Vitro Strip (Glucose Blood)Indications: Type 2 diabetes mellitus with hemoglobin A1c goal of less than 7.0% ([facility]) Use as directed daily. Test once daily DxE11.9 100 Strip 5 03/02/2021 Active LancetsIndications :Type 2 diabetes mellitus with hemoglobin A1c goal of less than 7.0% ([facility]) Test once daily DxE11.9. 100 Each 5 [...] Information Patient taking differently: 50 mcg Oral [id number], Reported on 04/14/2023 Pantoprazole Sodium 20 MG [...] ons:Atrial fibrillation, unspecified type (HCC),Anticoagulat ion management encounter,senior care current use of anticoagulant therapy,Paroxysmal atrial fibrillation [...] hemoglobin A1c goal of less than 7.0% ([facility]) Take 2 Tablets by mouth in the morning. 180 Tablet 1 07/11/2023 Active Insulin Glargine Solostar 100 UNIT/ML Subcutaneous Solution Pen-injector (Lantus SoloStar) Inject 10 Units under the skin every evening. 15 mL 3 07/19/2023 Active Pen [place] 32G X 4 MM Use as directed. [...] and 1 Tablet before bedtime. 0 Active Dexcom G7 SensorIndications: Type 2 diabetes mellitus with stage 3b chronic kidney disease, without long-term current use of insulin ([facility]) Use as directed to check blood sugars daily. Change every 10 days. DxE11.9. 3 Each 3 08/22/2023 Active documented as of this encounter (statuses as of 08/23/2023) Active Problems Problem Noted Date Diagnosed Date [...] myeloma without remission 06/14/2014 Overview: Dr Rodriges/ [facility] ADVANCE DIRECTIVE INFORMATION 10/13/2006 Overview: No, Advance Directive brochure offered , patient declined. Degeneration of lumbosacral intervertebral disc 02/19/2005 documented as of this encounter (statuses as of 08/23/2023) Resolved Problems Problem Noted Date Diagnosed Date [...] as of this encounter (statuses as of 08/23/2023) Immunizations Name Administration Dates Next Due COVID-19, [...] encounter Miscellaneous Notes * Telephone Encounter - Shirley Reddy RPh - 08/23/2023 12:17 PM EST Reviewed. On schedule for phone call follow-up today. Shirley Reddy RPh, PharmD, BCACP Clinical Pharmacist - Animal Physiologist [facility] 08/23/2023, 12:18 PM * Telephone Encounter - An Hurst RPh - 08/22/2023 7:41 PM EST Spoke with Haley from [facility] at [phone]. Confirmed pt held tonight's dose of warfarin due to elevated INR of 6.33 with Bactrim. Denies unusual bleeding or bruising. Last dose of bactrim tomorrow 08/23. Informed pt that MTM will call back tomorrow as scheduled with instructions and next INR check. An Hurst PharmD PGY1 Perioperative Educator 08/22/2023 7:43 PM * Telephone Encounter - Alcira Perla OSA - 08/22/2023 6:50 PM EST Reason for patient's call: Haley from [facility] calling with a critical lab results. Bandar Text was sent to the compliance professional provider. documented in this encounter Plan of Treatment Upcoming Encounters Date Type Department Care Team (Late st Contact Info) Description 09/01/2023 12:30 PM EST [facility] Visit [facility], [facility] [address] [facility] [place] [address] Sulma Seth, BOBBY [address] [facility] [place] [address] 09/13/2023 9:00 AM EST Office Visit Cardiology, [facility] [address] [facility] [place] [address] Beth Salter CRNP [address] [facility] [place] [address] 11/23/2023 9:40 AM EDT Office Visit Nephrology, [facility] [address] [facility] [place] [address] Armando Cook MD [address] [place] [address] Health Maintenance Due Date Last Done Comments [...] Additional history exists CKD HGB USE SMARTSET 22697 08/16/202408/16, 07/25/2023, 07/25/2023, Additional history exists CKD PHOS USE SMARTSET 84362 08/16/2024 12/01/2023, 07/25/2023, 07/06/2023, Additional history exists DTaP,Tdap,and Td [...] this encounter Medical Devices Implanted Type Area Traffic Operations Manager Device Identifier Shelf Expiration Date Model / Serial / Lot Port Power Mri W/8fr Cath - [id number] Implanted:Qty: 1 on 09/26/2020 by Simone Michelle MD at OR [facility] Right: Chest CR BARD : PERIPHERAL VASCULAR 10/12/2021 [id number] / / [id number] Description:right IJ Lens Intraoc 19.0 - [id number] - [id number] Implanted:Qty: 1 on 02/03/2021 by Chris Sexton MD at OR [facility] Right: Eye BAUSCH & LOMB 09/11/2025 [id number] / [id number] / Lens Intraoc 19.0 - [id number] - [id number] Implanted:Qty: 1 on 02/24/2021 by Chris Sexton MD at OR [facility] Left: Eye BAUSCH & LOMB 10/12/2025 [id number] / [id number] / [id number] System Urolift - [id number] Implanted:Qty: 3 on 03/17/2023 by Devyn Paniagua MD at OR [facility] N/A: Urethra [employer] 11/03/2023 [id number] / / [id number] documented as of this encounter Procedures Procedure Name Priority Date/Time Associated Diagnosis Comments OUTSIDE LAB-PT/INR Routine 08/22/2023 documented in this encounter Results * OUTSIDE LAB-PT/INR (08/22/2023) INR-OUTSIDE LAB 6.33 History Per Patient LABORATORY documented in this encounter Visit Diagnoses Diagnosis PAF (paroxysmal [...] and were consensually agreed upon. Care Teams Index Editor Relationship Specialty Start Date End Date Jaime Garcia MD [address] [place] [address] [place] [phone] PCP - General Family Medicine 10/15/20 documented as of this encounter
--- OUTSIDE RECORDS SUMMARY | 2023-08-26 22:58 | External Medical Summary | Summary of Care ---
Author Name Unknown Organization [facility] Address [address] [place] [address] Phone [phone] Care Team Providers Care Commercial Litigation Attorney Name Role Phone Jaime Garcia MD Primary Care Provide r Reason for Visit * Reason Onset Date Comments Order Request 08/22/2023 Encounter Details Date Type Department Care Team (Late st Contact Info) Description 08/22/2023 Telephone Family Medicine [address] [phone] Jaime Garcia MD [address] [place] [address] [place] [address] Order Request Allergies Active Allergy Reactions Criticality Noted Date Comments Atorvastatin Muscle pain High 03/30/2019 Ezetimibe Muscle pain High 01/25/2020 documented as of this encounter (statuses as of 08/25/2023) Medications Medication Sig Dispensed Refills Start Date [...] Use up to 16 weeks Given by [facility] general surgery 12 Packet 3 01/19/2021 Active OneTouch Ultra Blue In Vitro Strip (Glucose Blood)Indications: Type 2 diabetes mellitus with hemoglobin A1c goal of less than 7.0% ([facility]) Use as directed daily. Test once daily DxE11.9 100 Strip 5 03/02/2021 Active LancetsIndications :Type 2 diabetes mellitus with hemoglobin A1c goal of less than 7.0% ([facility]) Test once daily DxE11.9. 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 180 Tablet 1 07/11/2023 Active Insulin Glargine Solostar 100 UNIT/ML Subcutaneous Solution Pen-injector (Lantus SoloStar) Inject 10 Units under the skin every evening. 15 mL 3 07/19/2023 Active Pen [place] 32G X 4 MM Use as directed. [...] as of this encounter (statuses as of 08/25/2023) Active Problems Problem Noted Date Diagnosed Date [...] myeloma without remission 06/14/2014 Overview: Dr Rodriges/ [facility] ADVANCE DIRECTIVE INFORMATION 10/13/2006 Overview: No, Advance Directive brochure offered , patient declined. Degeneration of lumbosacral intervertebral disc 02/19/2005 documented as of this encounter (statuses as of 08/25/2023) Resolved Problems Problem Noted Date Diagnosed Date [...] as of this encounter (statuses as of 08/25/2023) Immunizations Name Administration Dates Next Due COVID-19, [...] encounter Miscellaneous Notes * Telephone Encounter - Ellyn Lyn CMA - 08/25/2023 10:[address] Hope spoke to the patient and he knows to get labs. See patient message 08/23/2023 * Telephone Encounter - Jaime Garcia MD - 08/24/2023 12:10 PM EST I'm repeating his lab on Tuesday - pls see the other encounter - pt will come into the lab * Telephone Encounter - Tim Putnam OSA - 08/22/2023 3:02 PM EST Mary Kate calling with fax number. Fax#: [phone] Attn: Mary Kate * Telephone Encounter - Rufina Ernandez OSA - 08/22/2023 2:54 PM EST Call from Mary Kate at [facility] calling to let PCP know she did [...] Description 08/26/2023 2:20 PM EST Anticoagulation Pharmacy, [address] [place] [address] [place] [address] 09/01/2023 12:30 PM EST [facility], [facility] [address] [facility] [place] [address] Sulma Seth, RN 132 [facility] [place] [address] 09/13/2023 9:00 AM EST Office Visit Cardiology, [facility] [address] [facility] [place] [address] Beth Salter CRNP [address] [place] [phone] 11/23/2023 9:40 AM EDT Office Visit Nephrology, [facility] 200 [facility] [place] [address] Armando Cook MD 200 [facility] [place] [address] Health Maintenance Due Date Last Done Comments HIV Screening 1985 Hepatitis C Screening 01/29/1988 Cologuard 2015 Fecal Occult Blood Test 2015 Sigmoidoscopy 2015 COVID-19 Vaccine (3 - Pfizer risk series) 11/03/2021 10/06/2021, 06/23/2021 Depression Screening 01/05/2022 01/05/2021 Diabetic Foot Exam 12/14/2022 12/14/2021, 0 10/15/2020, 06/25/2019 HbA1c 01/05/2024 07/06/2023, 08/0 11/2022, 03/29/2023, Additional history exists GFR 02/21/2024 08/22/2023, 12/01/2023, 07/25/2023, Additional history exists Pneumococcal Vaccine: Pediatrics (0 to 5 Years) and At-Risk Patients (6 to 64 Years) (3 - PPSV23 or PCV20) 05/22/2024 05/13/2020, 05/22/2019 Albumin/Creatinine Ratio 06/22/2024 023, 05/27/2023, 03/25/2023, Additional history exists Diabetic Eye Exam 07/11/2024 07/11/2023, , 06/29/2021, Additional history exists TSH 07/25/2024 07/25/2023, 03/12, 01/31/2023, Additional history exists CKD HGB USE SMARTSET 24866 08/16/202408/16, 07/25/2023, 07/25/2023, Additional history exists CKD PHOS USE SMARTSET 68055 08/16/2024 1201/2023, 07/25/2023, 07/06/2023, Additional history exists DTaP,Tdap,and Td [...] this encounter Medical Devices Implanted Type Area Raiser Helper Device Identifier Shelf Expiration Date Model / Serial / Lot Port Power Mri W/8fr Cath - [id number] Implanted:Qty: 1 on 09/26/2020 by Simone Michelle MD at OR [facility] Right: Chest CR BARD : PERIPHERAL VASCULAR 10/12/2021 [id number] / / [id number] Description:right IJ Lens Intraoc 19.0 - [id number] - [id number] Implanted:Qty: 1 on 02/03/2021 by Chris Sexton MD at OR [facility] Right: Eye BAUSCH & LOMB 09/11/2025 [id number] / [id number] / Lens Intraoc 19.0 - [id number] - [id number] Implanted:Qty: 1 on 02/24/2021 by Chris Sexton MD at OR [facility] Left: Eye BAUSCH & LOMB 10/12/2025 [id number] / [id number] / [id number] System Urolift - [id number] Implanted:Qty: 3 on 03/17/2023 by Devyn Paniagua MD at OR [facility] N/A: Urethra [employer] 11/03/2023 [id number] / / [id number] documented as of this encounter Advance Directives [...] and were consensually agreed upon. Care Teams Commercial Litigation Attorney Relationship Specialty Start Date End Date Jaime Garcia MD [address] [place] [address] [place] [phone] PCP - General Family Medicine 10/15/20 documented as of this encounter
--- OUTSIDE RECORDS SUMMARY | 2023-08-26 22:58 | External Medical Summary | Summary of Care ---
Author Name Unknown Organization [facility] Address [address] [place] [address] Phone [phone] Care Team Providers Care Swimming Pool Maintenance Name Role Phone Jaime Garcia MD Primary Care Provide r Encounter Details Date Type Department Care Team (Late st Contact Info) Description 08/22/2023 Result Scan Unspecified Department Barbara Jiménez, [facility] [address] [place] [address] <No scans attached> Allergies Active Allergy Reactions Criticality Noted Date [...] Use up to 16 weeks Given by [facility] general surgery 12 Packet 3 01/19/2021 Active OneTouch Ultra Blue In Vitro Strip (Glucose Blood)Indications: Type 2 diabetes mellitus with hemoglobin A1c goal of less than 7.0% ([facility]) Use as directed daily. Test once daily DxE11.9 100 Strip 5 03/02/2021 Active LancetsIndications :Type 2 diabetes mellitus with hemoglobin A1c goal of less than 7.0% ([facility]) Test once daily DxE11.9. 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 180 Tablet 1 07/11/2023 Active Insulin Glargine Solostar 100 UNIT/ML Subcutaneous Solution Pen-injector (Lantus SoloStar) Inject 10 Units under the skin every evening. 15 mL 3 07/19/2023 Active Pen [place] 32G X 4 MM Use as directed. [...] disease, without long-term current use of insulin ([facility]) Use as directed to check blood sugars [...] myeloma without remission 06/14/2014 Overview: Dr Rodriges/ [facility] ADVANCE DIRECTIVE INFORMATION 10/13/2006 Overview: No, [...] on file documented as of this encounter Plan of Treatment Upcoming Encounters Date Type Department Care Team (Late st Contact Info) Description 08/26/2023 2:20 PM EST Anticoagulation Pharmacy, [address] [place] [address] [place] [address] 09/01/2023 12:30 PM EST [facility], [facility] [address] [place] [address] Sulma Seth RN [address] [place] [address] 09/13/2023 9:00 AM EST Office Visit Cardiology, [facility] 132 [facility] [place] [address] Beth Salter CRNP [address] [place], [place] [phone] 11/23/2023 9:40 AM EDT Office Visit Nephrology, [place] [facility] [place] [address] Armando Cook MD 200 [facility] [place] [address] Health Maintenance Due Date Last Done Comments HIV Screening 1985 Hepatitis C Screening 01/29/1988 Cologuard 2015 Fecal Occult Blood Test 2015 Sigmoidoscopy 2015 COVID-19 Vaccine (3 - Pfizer risk series) 11/03/2021 10/06/2021, 06/23/2021 Depression Screening 01/05/2022 01/05/2021 Diabetic Foot Exam 12/14/2022 12/14/2021, 0 10/15/2020, 06/25/2019 HbA1c 01/05/2024 07/06/2023, 08/0 11/2022, 03/29/2023, Additional history exists GFR 02/21/2024 08/22/2023, 1201/2023, 07/25/2023, Additional history exists Pneumococcal Vaccine: Pediatrics (0 to 5 Years) and At-Risk Patients (6 to 64 Years) (3 - PPSV23 or PCV20) 05/22/2024 05/13/2020, 05/22/2019 Albumin/Creatinine Ratio 06/22/2024 023, 05/27/2023, 03/25/2023, Additional history exists Diabetic Eye Exam 07/11/2024 07/11/2023, , 06/29/2021, Additional history exists TSH 07/25/2024 07/25/2023, 03/12, 01/31/2023, Additional history exists CKD HGB USE SMARTSET 88591 08/16/202408/16, 07/25/2023, 07/25/2023, Additional history exists CKD PHOS USE SMARTSET 86833 08/16/2024 1201/2023, 07/25/2023, 07/06/2023, Additional history exists [...] this encounter Medical Devices Implanted Type Area Satellite Project Site Monitor Device Identifier Shelf Expiration Date Model / Serial / Lot Port Power Mri W/8fr Cath - [id number] Implanted:Qty: 1 on 09/26/2020 by Simone Michelle MD at OR [facility] Right: Chest CR BARD : PERIPHERAL VASCULAR 10/12/2021 [id number] / / [id number] Description:right IJ Lens Intraoc 19.0 - [id number] - [id number] Implanted:Qty: 1 on 02/03/2021 by Chris Sexton MD at OR [facility] Right: Eye BAUSCH [employer] LOMB 09/11/2025 [id number] / [id number] / Lens Intraoc 19.0 - [id number] - [id number] Implanted:Qty: 1 on 02/24/2021 by Chris Sexton MD at OR [facility] Left: Eye BAUSCH & LOMB 10/12/2025 [id number] / [id number] / [id number] System Urolift - [id number] Implanted:Qty: 3 on 03/17/2023 by Devyn Paniagua MD at OR [facility] N/A: Urethra [employer] 11/03/2023 [id number] / / [id number] documented as of this encounter Procedures Procedure Name Priority Date/Time Associated Diagnosis Comments OUTSIDE LAB RESULTS 08/22/2023 documented in this encounter Results * OUTSIDE LAB RESULTS (08/22/2023) 08/22/2023 Barbara Jiménez [facility] LABORATORY documented in this encounter Advance Directives Latest [...] and were consensually agreed upon. Care Teams Swimming Pool Maintenance Relationship Specialty Start Date End Date Jaime Garcia MD [address] [place] [address] [place] [phone] PCP - General Family Medicine 10/15/20 documented as of this encounter
--- OUTSIDE RECORDS SUMMARY | 2023-08-26 22:58 | External Medical Summary | Summary of Care ---
Author Name Unknown Organization [facility] Address [address] [place] [address] Phone [phone] Care Team Providers Care Digital Media Director Name Role Phone Jaime Garcia MD Primary Care Provide r Reason for Visit * Reason Onset Date Comments Order Request 08/22/2023 Encounter Details Date Type Department Care Team (Late st Contact Info) Description 08/22/2023 Telephone Family Medicine [address] [phone] Jaime Garcia MD [address] [place] [address] [place], [place] [id number] Order Request Allergies Active Allergy Reactions Criticality [...] Use up to 16 weeks Given by [facility] general surgery 12 Packet 3 01/19/2021 [...] Information Patient taking differently: 50 mcg Oral [id number], Reported on 04/14/2023 Pantoprazole Sodium 20 MG [...] ons:Atrial fibrillation, unspecified type (HCC),Anticoagulat ion management encounter,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 180 Tablet 1 07/11/2023 Active Insulin Glargine Solostar 100 UNIT/ML Subcutaneous Solution Pen-injector (Lantus SoloStar) Inject 10 Units under the skin every evening. 15 mL 3 07/19/2023 Active Pen [place] 32G X 4 MM Use as directed. [...] myeloma without remission 06/14/2014 Overview: Dr Rodriges/ [facility] - [...] Mary Kate calling with fax number. Fax#: [phone] Attn: Mary Kate * Telephone Encounter - Rufina Ernandez OSA - 08/22/2023 2:54 PM EST Call from Mary Kate at [facility] calling to let PCP know she did [...] Description 08/26/2023 2:20 PM EST Anticoagulation Pharmacy, [address] [place] [address] [place] [address] 09/01/2023 12:30 PM EST [facility] Visit [facility] [place], [facility] [address] [place] [address] Sulma Seth, BOBBY [address] [place] [address] 09/13/2023 9:00 AM EST Office Visit [facility]iology, [facility] [place] [address] Beth Salter CRNP [address] [place] [phone] 11/23/2023 9:40 AM EDT Office Visit Nephrology, [facility] 200 [facility] [place] [address] Armando Cook MD 200 [facility] [place] [address] Health Maintenance Due Date Last Done Comments [...] Additional history exists CKD HGB USE SMARTSET 83801 08/16/202408/16, 07/25/2023, 07/25/2023, Additional history exists CKD PHOS USE SMARTSET 97425 08/16/2024 120 01/2023, 07/25/2023, 07/06/2023, Additional history [...] this encounter Medical Devices Implanted Type Area Manager Supply Device Identifier Shelf Expiration Date Model / Serial / Lot Port Power Mri W/8fr Cath - [id number] Implanted:Qty: 1 on 09/26/2020 by Simone Michelle MD at OR [facility] Right: Chest CR BARD : PERIPHERAL VASCULAR 10/12/2021 [id number] / / [id number] Description:right IJ Lens Intraoc 19.0 - [id number] - [id number] Implanted:Qty: 1 on 02/03/2021 by Chris Sexton MD at OR [facility] Right: Eye BAUSCH & LOMB 09/11/2025 [id number] / [id number] / Lens Intraoc 19.0 - [id number] - [id number] Implanted:Qty: 1 on 02/24/2021 by Chris Sexton MD at OR [facility] Left: Eye BAUSCH & LOMB 10/12/2025 [id number] / [id number] / [id number] System Urolift - [id number] Implanted:Qty: 3 on 03/17/2023 by Devyn Paniagua MD at OR [facility] N/A: Urethra [employer] 11/03/2023 ZY381-6 / / [id number] documented as of this encounter Advance Directives [...] and were consensually agreed upon. Care Teams Digital Media Director Relationship Specialty Start Date End Date Jaime Garcia MD [address] [place] [address] [place] [phone] PCP - General Family Medicine 10/15/20 documented as of this encounter
--- OUTSIDE RECORDS SUMMARY | 2023-08-26 22:58 | External Medical Summary | Summary of Care ---
Author Name Unknown Organization [facility] Address [address] [place] [address] Phone [phone] Care Team Providers Care Drag Out Worker Name Role Phone Jaime Garcia MD Primary Care Provide r Reason for Visit * Reason Comments Dosage Adjustment Via Phone (anticoag Cl inic) Encounter Details Date Type Department Care Team (Latest Contact Info) Description 08/23/2023 7:00 AM EST Anticoagulation Pharmacy, [address] [place] [address] [place] [address] PAF (paroxysmal atrial fibrillation) ([facility])* Allergies Active Allergy Reactions Criticality Noted Date [...] Use up to 16 weeks Given by [facility] general surgery 12 Packet 3 01/19/2021 Active OneTouch Ultra Blue In Vitro Strip (Glucose Blood)Indications: Type 2 diabetes mellitus with hemoglobin A1c goal of less than 7.0% ([facility]) Use as directed daily. Test once daily DxE11.9 100 Strip 5 03/02/2021 Active LancetsIndications :Type 2 diabetes mellitus with hemoglobin A1c goal of less than 7.0% ([facility]) Test once daily DxE11.9. 100 Each [...] Information Patient taking differently: 50 mcg Oral [id number], Reported on 04/14/2023 Pantoprazole Sodium 20 MG [...] ons:Atrial fibrillation, unspecified type (HCC),Anticoagulat ion management encounter,intermediate current use of anticoagulant therapy,Paroxysmal atrial fibrillation [...] hemoglobin A1c goal of less than 7.0% ([facility]) Take 2 Tablets by mouth in the morning. 180 Tablet 1 07/11/2023 Active Insulin Glargine Solostar 100 UNIT/ML Subcutaneous Solution Pen-injector (Lantus SoloStar) Inject 10 Units under the skin every evening. 15 mL 3 07/19/2023 Active Pen [place] 32G X 4 MM Use as directed. [...] disease, without long-term current use of insulin ([facility]) Use as directed to check blood sugars [...] myeloma without remission 06/14/2014 Overview: Dr Rodriges/ [facility] ADVANCE DIRECTIVE INFORMATION 10/13/2006 Overview: No, [...] on file documented as of this encounter Progress Notes * Racquel Taylor, [facility] - 08/23/2023 12:50 PM EST Medication Therapy Disease Management - Anticoagulation Patient: Jerardo Ochoa Jr. | : 1970 Subjective Contacts Type Contact Phone/Fax 08/23/2023 12:51 PM EST Phone (Outgoing) Jerardo Ochoa Jr. (Self) [phone] (Y) Patient-Reported Symptoms: Patient Findings Positives: Change in medications (patient he reports he has 1 or 2 doses of Bactrim left at home.) Negatives: Signs/symptoms of thrombosis, Signs/symptoms of bleeding, Change in health, Change in alcohol use, Change in activity, Upcoming invasive procedure, Missed doses, Extra doses, Change in diet/appetite, Bruising Objective Current Warfarin Dose As of 08/23/2023 Warfarin maintenance plan: 1.25 mg (2.5 mg x 0.5) every day INR Result As of 08/23/2023 INR goal: 2.0-3.0 INR used for dosin.33 (08/22/23) Assessment & Plan Warfarin Plan As of 08/23/2023 Full warfarin instructions: 08/23: Hold; 08/24: Hold; Otherwise 1.25 mg every day Next INR check: 08/26/2023 Repeat PT/INR in 3 day(s) Weekly dose: re-establishing weekly dose Additional Dosing Information: Description AMIO start 10/29/22 - 11/22/22 BID then QD after AMIO STOPPED 05/31 Faxed orders to [facility] office at [phone] as requested. # Please fax INR results to [facility] at [phone] [facility] can be reached at with any questions or problems Ok to use fingerstick Dx: Praoxysmal atrial fibrillation I48.0 Ordering provider: Fortunato Stout MD High INR: Counseled patient on the significance of INR elevation, the increased bleed risk associated with such, sign/symptoms of bleeding, and when to seek medical attention. Racquel Taylor [facility], PharmD, BCACP Clinical Pharmacist Medication Therapy [facility] 08/23/23, 12:51 PM documented in this encounter Plan of Treatment Upcoming Encounters Date Type Department Care Team (Late st Contact Info) Description 08/26/2023 2:20 PM EST Anticoagulation Pharmacy, [address] [place] [address] [place] [address] 09/01/2023 12:30 PM EST [facility] Visit [facility] 132 [facility] [place] [address] Sulma Seth, BOBBY 132 [facility] [place] [address] 09/13/2023 9:00 AM EST Office Visit Cardiology, [facility] 132 [facility] [place] [address] Beth Salter CRNP [address] [place] [address] [place] [phone] 11/23/2023 9:40 AM EDT Office Visit Nephrology, [facility] [address] [place] [address] Armando Cook MD 200 [facility] [place] [address] Health Maintenance Due Date Last Done Comments HIV Screening 1985 Hepatitis C Screening 01/29/1988 Cologuard 2015 Fecal Occult Blood Test 2015 Sigmoidoscopy 2015 COVID-19 Vaccine (3 - Pfizer risk series) 11/03/2021 10/06/2021, 06/23/2021 Depression Screening 01/05/2022 01/05/2021 Diabetic Foot Exam 12/14/2022 12/14/2021, 0 10/15/2020, 06/25/2019 HbA1c 01/05/2024 07/06/2023, 08/0 11/2022, 03/29/2023, Additional history exists GFR 02/21/2024 08/22/2023, 01/2023, 07/25/2023, Additional history exists Pneumococcal Vaccine: Pediatrics (0 to 5 Years) and At-Risk Patients (6 to 64 Years) (3 - PPSV23 or PCV20) 05/22/2024 05/13/2020, 05/22/2019 Albumin/Creatinine Ratio 06/22/2024 023, 05/27/2023, 03/25/2023, Additional history exists Diabetic Eye Exam 07/11/2024 07/11/2023, , 06/29/2021, Additional history exists TSH 07/25/2024 07/25/2023, 03/12, 01/31/2023, Additional history exists CKD HGB USE SMARTSET 29208 08/16/202408/16, 07/25/2023, 07/25/2023, Additional history exists CKD PHOS USE SMARTSET 26994 08/16/2024 1201/2023, 07/25/2023, 07/06/2023, Additional history exists [...] this encounter Medical Devices Implanted Type Area Resource Development Director Device Identifier Shelf Expiration Date Model / Serial / Lot Port Power Mri W/8fr Cath - [id number] Implanted:Qty: 1 on 09/26/2020 by Simone Michelle MD at OR [facility] Right: Chest CR BARD : PERIPHERAL VASCULAR 10/12/2021 [id number] / / [id number] Description:right IJ Lens Intraoc 19.0 - [id number] - [id number] Implanted:Qty: 1 on 02/03/2021 by Chris Sexton MD at OR [facility] Right: Eye BAUSCH & LOMB 09/11/2025 [id number] / [id number] / Lens Intraoc 19.0 - [id number] - [id number] Implanted:Qty: 1 on 02/24/2021 by Chris Sexton MD at OR [facility] Left: Eye BAUSCH & LOMB 10/12/2025 [id number] / [id number] System Urolift - [id number] Implanted:Qty: 3 on 03/17/2023 by Devyn Paniagua MD at OR [facility] N/A: Urethra [employer] 11/03/2023 [id number] / / [id number] documented as of this encounter Visit Diagnoses [...] and were consensually agreed upon. Care Teams Drag Out Worker Relationship Specialty Start Date End Date Jaime Garcia MD [address] [place] [address] [place] [address] PCP - General Family Medicine 10/15/20 documented as of this encounter"
--- OUTSIDE RECORDS SUMMARY | 2023-08-26 22:58 | External Medical Summary | Summary of Care ---
Author Name Unknown Organization [facility] Address [address] [place] [address] Phone [phone] Care Team Providers Care Regrinder Operator Name Role Phone Jaime Garcia MD Primary Care Provide r Reason for Visit * Reason Onset Date Comments Hospital Follow-Up Medication Administration 08/22/2023 Flu an d/or Pneumo Inj Encounter Details Date Type Department Care Team (Late st Contact Info) Description 08/22/2023 6:00 PM EST Office Visit Family Medicine [address] [phone] Jaime Garcia MD [address] [place] [address] [place] [address] Salmonella infection*; Need for prophylactic vaccination and inoculation against influenza; Enteritis; Type 2 diabetes mellitus with stage 3b chronic kidney disease, without long-term current use of insulin (HCC) Allergies Active Allergy Reactions Criticality Noted Date Comments Atorvastatin Muscle pain High 03/30/2019 Ezetimibe Muscle pain High 01/25/2020 documented as of this encounter (statuses as of 08/22/2023) Medications Medication Sig Dispensed Refills Start Date End Date Status NSS 0.9 % SOLN with daratumumab 400 MG/20ML SOLN 16 mg/kgIndications:e very 4 weeks Administer intravenously every 14 days. 0 Active CPAP every night at bedtime. 0 Active oxygen IN GAS Use 2 L/min(Oxygen) as directed at bedtime. 1 Each 0 1 Active Fluticasone Propionate 50 MCG/ACT Nasal Suspension (Flonase)Indicatio ns:Nasal congestion Administer 2 Sprays into each nostril daily. 16 g 1 1 Active Imiquimod 5 % External Cream (Aldara)Indication s:Anal condyloma Apply topically to affected area at bedtime. 3 times per week and wash off after 6-10 hours. Use up to 16 weeks Given by [facility] 12 Packet 3 1 Active OneTouch Ultra Blue In Vitro Strip (Glucose Blood)Indications: Type 2 diabetes mellitus with hemoglobin A1c goal of less than 7.0% ([facility]) Use as directed daily. Test once daily DxE11.9 100 Strip 5 1 Active LancetsIndications :Type 2 diabetes mellitus with hemoglobin A1c goal of less than 7.0% ([facility]) Test once daily DxE11.9. 100 Each 5 1 Active Albuterol Sulfate HFA 108 (90 Base) MCG/ACT Inhalation Aerosol SolutionIndication s:Acute bronchitis, antibiotics not indicated Inhale 2 Puffs by mouth every 6 hours as needed for Cough or Shortness of Breath. 54 g 1 1 Active Acyclovir 400 MG Oral Tablet (Zovirax)Indicatio ns:Lambda light chain myeloma (HCC) Take one tablet once daily 180 Tablet 3 2 Active Torsemide 20 MG Oral Tablet (Demadex)Indicatio ns:takes extra tab for swelling, wt gain Take 1 Tablet by mouth in the morning. 0 Active Ondansetron HCl 8 MG Oral Tablet (Zofran)Indication s:Nausea Take 1 Tablet (8 mg) by mouth every 8 hours as needed for Nausea. 30 Tablet 3 2 Active Prochlorperazine Maleate 10 MG Oral Tablet (Compazine) Take 1 Tablet by mouth every 6 hours as needed for Nausea. Take 1 tablet by mouth between 1st and 2nd Zofran doses and between the 2nd and 3rd Zofran doses. Do this when you need her not for the 1st 2 days and then as you need for nausea 28 Tablet 1 2 Active Hizentra 4 GM/20ML Subcutaneous Solution (immune globulin human 20%) Patient is to subcutaneously infuse three four gram vials twice weekly for four weeks then 6 grams weekly. 480 mL 0 3 Active Hizentra 2 GM/10ML Subcutaneous Solution (immune globulin human 20%) Patient is to subcutaneously inject one 2 gram vial plus one four gram vial for a total of 6 grams weekly after loading dose of 12 grams twice weekly x four weeks . 120 mL 12 3 Active diphenhydrAMINE HCl 50 MG Oral Capsule (Benadryl) Take one 25 mg capsule by mouth one hour prior to Hizentra, 50 Capsule 2 3 Active Acetaminophen 325 MG Oral Tablet (Tylenol) Take two 325 mg tablets by mouth one hour prior to Hizentra. 30 Tablet 3 3 Active Famotidine 20 MG Oral Tablet Take 1 Tablet by mouth at bedtime. Take one one hour prior to weekly hizentra by mouth . 30 Tablet 3 3 Active EpiPen 2-Konstantin 0.3 MG/0.3ML Injection Solution Auto-injector For a severe reaction: Inject in outer thigh following instructions on package and go to the Emergency room. 2 Each 3 3 Active Dexamethasone 4 MG Oral Tablet (Decadron)Indicati ons:Multiple myeloma not having achieved remission (HCC) 5 tabs 2 times monthly 10 Tablet 5 3 Active Bisacodyl 5 MG Oral Tablet Delayed [...] minimum every 3rd day. 40 Tablet 1 3 Active Polyethylene Glycol 3350 17 GM Oral [...] later than 6 PM) 135 Tablet 3 3 Active oxyCODONE-Acetamin ophen 5-325 MG Oral Tablet (Percocet) Take 1 Tablet by mouth every 6 hours as needed for Pain, Severe. 10 Tablet 0 3 Active Silodosin 8 MG Oral Capsule (Rapaflo) Take 1 Capsule by mouth in the morning. 30 Capsule 1 3 Active Folic Acid 400 MCG Oral TabletIndications: Low folate TAKE ONE TABLET BY MOUTH IN THE MORNING 90 Tablet 1 3 02/05/20 24 Active Levothyroxine Sodium 50 MCG Oral Tablet (Levoxyl) TAKE 1 TABLET BY MOUTH DAILY AT LEAST 30 MINUTES PRIOR TO FIRST MEAL OF THE DAY OR OTHER MEDICATIONS 90 Tablet 3 3 01/11/20 24 Active Additional Information Patient taking differently: 50 mcg Oral [id number], Reported on 04/14/2023 Pantoprazole Sodium 20 MG Oral Tablet Delayed Release (Protonix)Indicati ons:Gastroesophage al reflux disease without esophagitis TAKE ONE TABLET BY MOUTH EVERY DAY IN THE MORNING 90 Tablet 2 3 12/26/19 24 Active Potassium Chloride ER 10 MEQ Oral Tablet Extended ReleaseIndications :Chronic diastolic congestive heart failure (HCC) TAKE ONE TABLET BY MOUTH EVERY DAY 90 Tablet 3 3 12/13/19 24 Active Warfarin Sodium 2.5 MG Oral Tablet (Coumadin)Indicati ons:Atrial fibrillation, unspecified type (HCC),Anticoagulat ion management encounter,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 90 Tablet 1 3 Active Finasteride 5 MG Oral Tablet (Proscar) TAKE 1 TABLET BY MOUTH IN THE MORNING 90 Tablet 3 3 04/11/20 24 Active Dapsone 25 MG Oral TabletIndications: Multiple myeloma in relapse (HCC) TAKE ONE TABLET BY MOUTH EVERY DAY 90 Tablet 1 3 04/25/20 24 Active DULoxetine HCl 20 MG Oral Capsule Delayed Release Particles (Cymbalta) Take 2 Capsules by mouth in the morning. 180 Capsule 1 3 Active Cholecalciferol 50 MCG (1999 UT) Oral TabletIndications: Lambda light chain myeloma (HCC),Multiple myeloma without remission (HCC) Take 50 mcg by mouth in the morning. 30 Tablet 5 3 Active Additional Information Patient taking differently: 150 mcgOral Daily(AM), Reported on 08/20/2023 Repatha SureClick 140 MG/ML Subcutaneous Solution Auto-injector (evolocumab)Indica tions:Dyslipidemia , goal LDL below 70 INJECT 140MG (1 INJECTION) UNDER THE SKIN EVERY 14 DAYS. REMOVE FROM REFRIGERATOR 30 MINUTES PRIOR TO INJECTION 6 mL 3 3 06/14/20 24 Active metFORMIN HCl ER 500 MG Oral Tablet Extended Release 24 Hour (Glucophage XR)Indications:Typ e 2 diabetes mellitus with hemoglobin A1c goal of less than 7.0% ([facility]) Take 2 Tablets by mouth in the morning. 180 Tablet 1 3 Active Insulin Glargine Solostar 100 UNIT/ML Subcutaneous Solution Pen-injector (Lantus SoloStar) Inject 10 Units under the skin every evening. 15 mL 3 3 Active Pen White Cloud 32G X 4 MM Use as directed. Inject Lantus once daily. 50 Each 3 3 Active Icosapent Ethyl 1 GM Oral Capsule (Vascepa)Indicatio ns:Hyperlipidemia with target LDL less than 70 Take 2 Capsules by mouth 2 times a day with morning and evening meals. Swallow capsules whole, do not open or break. 360 Capsule 3 3 Active oxyCODONE HCl 5 MG Oral Tablet (Oxy IR)Indications:Mul tiple myeloma in relapse (HCC) Take 1 Tablet by mouth every 4 hours as needed for breakthrough pain. 30 Tablet 0 3 Active Advanced Probiotic-14 Oral Capsule Take 2 [...] disease, without long-term current use of insulin (HCC) Use as directed to check blood sugars daily. Change every 10 days. DxE11.9. 3 Each 3 3 Active Dexcom G7 Sensor Use as directed to check blood sugars daily. Change every 10 days. DxE11.9. 3 Each 3 3 08/22/20 23 Discontinu ed(Refill) documented as of this encounter (statuses as of 08/22/2023) Active Problems Problem Noted Date Diagnosed Date [...] myeloma without remission 06/14/2014 Overview: Dr Rodriges/ [facility] ADVANCE DIRECTIVE INFORMATION 10/13/2006 Overview: No, Advance Directive brochure offered , patient declined. Degeneration of lumbosacral intervertebral disc 02/19/2005 documented as of this encounter (statuses as of 08/22/2023) Resolved Problems Problem Noted Date Diagnosed Date [...] as of this encounter (statuses as of 08/22/2023) Immunizations Name Administration Dates Next Due COVID-19, LNP-s, No Preserve , Azar-sucrose, Ages 12+ (Pfizer) 10/06/2021,06/23/2021 Hepatitis B, 20+ yrs 11/20/2019,06/21/2019,05/22 Pneumococcal Conjugate Vacc, 13 Valent (Prevnar) 05/13/2020 Pneumococcal Polysaccharide PPV23 (Pneumovax) 05/22/2019 SEASONAL INFLUENZA, PF, 6 M & Above, IM , (FLULAVAL or FLUZONE) 08/22/2023,06/10/2022,07/23/2021,07/31,05/22/2019 Seasonal Influenza, Split, I IV3, No [...] on file documented as of this encounter Last Filed Vital Signs Vital Sign Reading Time Taken Comments Blood Pressure 102/58 08/22/2023 3:54 PM EST Pulse 84 08/22/2023 3:54 PM EST Temperature 36.8 C (98.2 F) 08/22/2023 3:54 PM ES T Respiratory Rate - - Oxygen Saturation 97% 08/22/2023 3:54 PM EST Inhaled Oxygen Concentration - - Weight 72.1 kg (159 lb) 08/22/2023 3:54 PM EST Height - - Body Mass Index 23.48 03/17/2023 6:42 AM EDT documented in this encounter Progress Notes * Jaime Garcia MD - 08/22/2023 3:56 PM EST Subjective: HPI: Jerardo Soto Don Haq is a 53 year old male with hx of Lambda light chain Multiple myeloma (2013) s/p autologous stem cell transplantation, Amyloidosis, Cardiac AL Amyloidosis, CKD III, Afib on Coumadin,DMII, CAD, DEBBY on CPAP, HLD, peripheral neuropathy (worsened after Velcade tx), On chronic steroid,C.diff infection, Chronic Hep B infection seen for Admitted to the hospital from 08/09-08/18 1. Salmonella Enteritis: - complicated with acute dehydration -required aggressive fluid resustiation - ID consulted --- cipro for 2 week (from 08/10) but switched to bactrim due to prolonged QTc --- lexapro discontinued due to prolong QTC as well 2. Acute hypoxic respiratory failure: - due to excessive IVF - improved with resuming torsemide Today: - pt is here with his - taking lantus 10 units qhs --- has been eating more and better -- pt would like to get CGM again - still taking bactrim - denied any diarrhea, N/V - have not had BM for 3 days ---- denied any abd pain or bloating - denied any fever - taking torsemide 20mg daily --- leg swelling is stable Patient Active Problem List Diagnosis Code Degeneration of lumbosacral intervertebral disc M51.37 ADVANCE DIRECTIVE INFORMATION Multiple myeloma without remission ([facility]) C90.00 Organ-limited amyloidosis ([facility]) E85.4 PAF (paroxysmal atrial fibrillation) ([facility]) I48.0 Anxiety F41.9 Type 2 diabetes mellitus with hemoglobin A1c goal of less than 7.0% ([facility]) E11.9 Hypogammaglobulinemia ([facility]) D80.1 Lambda light chain myeloma ([facility]) C90.00 AL amyloidosis ([facility]) E85.81 DEBBY (obstructive sleep apnea) G47.33 Statin intolerance Z78.9 Peripheral neuropathic pain M79.2 Current chronic use of systemic steroids Z79.52 Hyperlipidemia with target LDL less than 70 E78.5 Coronary artery disease, non-occlusive I25.10 Senile cardiac amyloidosis ([facility]) E85.4, I43 Immunosuppressed status ([facility]) D84.9 Chronic kidney disease, stage 3b ([facility]) N18.32 Type 2 diabetes mellitus with stage 3b chronic kidney disease ([facility]) E11.22, N18.32 Congenitally solitary right kidney Q60.0 BPH with obstruction/lower urinary tract symptoms N40.1, N13.8 Chronic heart failure with preserved ejection fraction ([facility]) I50.32 Chemotherapy-induced neuropathy G62.0, T45.1X5A Current Outpatient Medications Medication Sig Dispense Refill Dexcom G7 Sensor Use as directed to check blood sugars daily. Change every 10 days. DxE11.9. 3 Each3 NSS 0.9 % SOLN with daratumumab 400 MG/20ML SOLN 16 mg/kg Administer intravenously every 14 days. CPAP every night at bedtime. oxygen IN GAS Use 2 L/min(Oxygen) as directed at bedtime. 1 Each 0 Fluticasone Propionate 50 MCG/ACT Nasal Suspension (Flonase) Administer 2 Sprays into each nostril daily. 16 g 1 Imiquimod 5 % External Cream (Aldara) Apply topically to affected area at bedtime. 3 times per weekand wash off after 6-10 hours. Use up to 16 weeks Given by [facility] 12 Packet 3 OneTouch Ultra Blue In Vitro Strip (Glucose Blood) Use as directed daily. Test once daily DxE11.9 100 Strip 5 Lancets Test once daily DxE11.9. 100 Each 5 Albuterol Sulfate HFA 108 (90 Base) MCG/ACT Inhalation Aerosol Solution Inhale 2 Puffs by mouth every 6 hours as needed for Cough or Shortness of Breath. 54 g 1 Acyclovir 400 MG Oral Tablet (Zovirax) Take one tablet once daily 180 Tablet 3 Torsemide 20 MG Oral Tablet (Demadex) Take 1 Tablet by mouth in the morning. Ondansetron HCl 8 MG Oral Tablet (Zofran) Take 1 Tablet (8 mg) by mouth every 8 hours as needed forNausea. 30 Tablet 3 Prochlorperazine Maleate 10 MG Oral Tablet (Compazine) Take 1 Tablet by mouth every 6 hours as needed for Nausea. Take 1 tablet by mouth between 1st and 2nd Zofran doses and between the 2nd and 3rd Zofran doses. Do this when you need her not for the 1st 2 days and then as you need for nausea 28 Tablet 1 Hizentra 4 GM/20ML Subcutaneous Solution (immune globulin human 20%) Patient is to subcutaneously infuse three four gram vials twice weekly for four weeks then 6 grams weekly. 480 mL 0 Hizentra 2 GM/10ML Subcutaneous Solution (immune globulin human 20%) Patient is to subcutaneously inject one 2 gram vial plus one four gram vial for a total of 6 grams weekly after loading dose of 12grams twice weekly x four weeks . 120 mL 12 diphenhydrAMINE HCl 50 MG Oral Capsule (Benadryl) Take one 25 mg capsule by mouth one hour prior toHizentra, 50 Capsule 2 Acetaminophen 325 MG Oral Tablet (Tylenol) Take two 325 mg tablets by mouth one hour prior to Hizentra. 30 Tablet 3 Famotidine 20 MG Oral Tablet Take 1 Tablet by mouth at bedtime. Take one one hour prior to weekly hizentra by mouth . 30 Tablet 3 EpiPen 2-Konstantin 0.3 MG/0.3ML Injection Solution Auto-injector For a severe reaction: Inject in outer thigh following instructions on package and go to the Emergency room. 2 Each 3 Dexamethasone 4 MG Oral Tablet (Decadron) 5 tabs 2 times monthly 10 Tablet 5 Bisacodyl 5 MG Oral Tablet Delayed Release [...] minimum every 3rd day. 40 Tablet 1 Polyethylene Glycol 3350 17 GM Oral Packet Take 1 Packet by mouth daily as needed. Midodrine HCl 10 MG Oral Tablet (Proamatine) Take 1 Tablet by mouth every morning. Take 0.5 tablet shortly before or upon rising in the morning, at midday, and in the late afternoon (not later than 6PM) 135 Tablet 3 oxyCODONE-Acetaminophen 5-325 MG Oral Tablet (Percocet) Take 1 Tablet by mouth every 6 hours as needed for Pain, Severe. 10 Tablet 0 Silodosin 8 MG Oral Capsule (Rapaflo) Take 1 Capsule by mouth in the morning. 30 Capsule 1 Folic Acid 400 MCG Oral Tablet TAKE ONE TABLET BY MOUTH IN THE MORNING 90 Tablet 1 Levothyroxine Sodium 50 MCG Oral Tablet (Levoxyl) TAKE 1 TABLET BY MOUTH DAILY AT LEAST 30 MINUTES PRIOR TO FIRST MEAL OF THE DAY OR OTHER MEDICATIONS (Patient taking differently: Take 1 Tablet by mouth daily first thing in the morning.) 90 Tablet 3 Pantoprazole Sodium 20 MG Oral Tablet Delayed Release (Protonix) TAKE ONE TABLET BY MOUTH EVERY DAYIN THE MORNING 90 Tablet 2 Potassium Chloride ER 10 MEQ Oral Tablet Extended Release TAKE ONE TABLET BY MOUTH EVERY DAY 90 Tablet 3 Warfarin Sodium 2.5 MG Oral Tablet (Coumadin) TAKE ONE TABLET BY MOUTH ON TUESDAY AND TUESDAY, AND ONE-HALF TABLET ALL OTHER DAYS OR DIRECTED BY ANTICOAGULATION CLINIC (Patient taking differently: Take 0.5 Tablets by mouth in the morning.) 75 Tablet 3 Dexamethasone 4 MG Oral Tablet (Decadron) TAKE 5 TABLETS BY MOUTH TWICE A MONTH 10 Tablet 5 Tenofovir Alafenamide Fumarate 25 MG Oral Tablet (Vemlidy) Take 1 tablet by mouth in the morning. 90 Tablet 1 Finasteride 5 MG Oral Tablet (Proscar) TAKE 1 TABLET BY MOUTH IN THE MORNING 90 Tablet 3 Dapsone 25 MG Oral Tablet TAKE ONE TABLET BY MOUTH EVERY DAY 90 Tablet 1 DULoxetine HCl 20 MG Oral Capsule Delayed Release Particles (Cymbalta) Take 2 Capsules by mouth in the morning. 180 Capsule 1 Cholecalciferol 50 MCG (2000 UT) Oral Tablet Take 50 mcg by mouth in the morning. (Patient taking differently: Take 150 mcg by mouth in the morning.) 30 Tablet 5 Repatha SureClick 140 MG/ML Subcutaneous Solution Auto-injector (evolocumab) INJECT 140MG (1 INJECTION) UNDER THE SKIN EVERY 14 DAYS. REMOVE FROM REFRIGERATOR 30 MINUTES PRIOR TO INJECTION 6 mL 3 metFORMIN HCl ER 500 MG Oral Tablet Extended Release 24 Hour (Glucophage XR) Take 2 Tablets by mouth in the morning. 180 Tablet 1 Insulin Glargine Solostar 100 UNIT/ML Subcutaneous Solution Pen-injector (Lantus SoloStar) Inject 10 Units under the skin every evening. 15 mL 3 Pen White Cloud 32G X 4 MM Use as directed. Inject Lantus once daily. 50 Each 3 Icosapent Ethyl 1 GM Oral Capsule (Vascepa) Take 2 Capsules by mouth 2 times a day with morning andevening meals. Swallow capsules whole, do not open or break. 360 Capsule 3 oxyCODONE HCl 5 MG Oral Tablet (Oxy IR) Take 1 Tablet by mouth every 4 hours as needed for breakthrough pain. 30 Tablet 0 Advanced Probiotic-14 Oral Capsule Take 2 Capsules by mouth. Sulfamethoxazole-Trimethoprim 800-160 MG Oral Tablet (Bactrim DS) Take 1 Tablet by mouth in the morning and 1 Tablet before bedtime. Magnesium Chloride 64 MG Oral Tablet Delayed Release (Mag64) Take 1 Tablet by mouth in the morning and 1 Tablet before bedtime. No current facility-administered medications for this visit. Past Medical History: Diagnosis Date A-fib (HCC) Adjustment disorder with depressed mood C. difficile colitis 04/25/2021 positive for toxin B gene Cardiac amyloidosis (HCC) per cardiology note CHF (congestive heart failure) (HCC) diastolic and systolic CKD (chronic kidney disease) COVID-19 08/25/2020 Degeneration of lumbosacral intervertebral disc DM type 2, goal HbA1c < 7% (HCC) INFORMATION nonobstructive CAD - per cardiology note - cath 2017 IPMN (intraductal papillary mucinous neoplasm) on MRI, then EUS; surveillance imaging due May 2024 Multiple myeloma (HCC) Obstructive sleep apnea Orthostatic hypotension Tobacco use disorder Past Surgical History: Procedure Laterality Date CENTRAL LINE PLACEMENT-FLUORO ([facility]) 09/26/2020 CENTRAL LINE PLACEMENT-FLUORO performed by Simone Michelle MD at [facility] COLONOSCOPY, DIAGNOSTIC (RECTUM) 09/09/2021 normal bx / COLONOSCOPY FLEXIBLE PROXIMAL DIAGNOSTIC performed by Philip Graham MD at ENDOSCOPY [facility] CYSTOURETHROSCOPY, W/ TRANSPROSTATIC IMPLANT N/A 03/17/2023 CYSTOURETHROSCOPY, WITH INSERTION OF PERMANENT ADJUSTABLE TRANSPROSTATI IMPLANT; SINGLE IMPLANT performed by Devyn Paniagua MD at OR [facility] EGD, FLEXIBLE, DIAGNOSTIC 10/15/2019 normal bx / ESOPHAGOGASTRODUODENOSCOPY (EGD), FLEXIBLE, TRANSORAL, DIAGNOSTIC performed by Mellissa Mari MD at ENDOSCOPY [facility] EGD, FLEXIBLE, DIAGNOSTIC N/A 05/06/2023 esophageal plaques, biopsies confirm rebeca/EGD/MN EGD, W/ENDOSCOPIC US N/A 05/06/2023 multiple cystic lesion pancreatic head and body/EUS/MN INFORMATION vasectomy reversal INFORMATION status post autologous stem cell transplantation in 2014 - per cardiology note INSER TUNN ACC DEV;5 YRS/OLDER N/A 09/26/2020 INSERT TUNNELED CENTRAL VENOUS ACCESS WITH SUBQ PORT performed by Simone Michelle MD at OR [facility] MRI L SPINE W WO CONTRAST [place], was told he had a herniated disc REMOVE CATARACT, INSERT LENS PROSTH Right 02/03/2021 RIGHT EXTRACAPSULAR CATARACT REMOVAL WITH INTRAOCULAR LENS performed by Chris Sexton MD at OR [facility] REMOVE CATARACT, INSERT LENS PROSTH Left 02/24/2021 LEFT EXTRACAPSULAR CATARACT REMOVAL WITH INTRAOCULAR LENS performed by Chris Sexton MD at OR [facility] VASECTOMY 1999 Review of patient's allergies indicates: Allergen Reactions Atorvastatin Muscle pain Zetia [Ezetimibe] Muscle pain No family history on file. Social History Tobacco Use Smoking status: Never Smokeless tobacco: Current Types: Chew Tobacco comments: one pouch or a little less daily for 17 years Substance Use Topics Alcohol use: Yes Comment: rarely Vaping/E-Cigarette Use Vaping/E-Cigarette Use Never User Vaping/E-Cigarette Substances Vaping/E-Cigarette Devices ROS: -Per HPI OBJECTIVE: BP 102/58 | Pulse 84 | Temp 36.8 C (98.2 F) (Tympanic) | Wt 72.1 kg (159 lb) | SpO2 97% | BMI 23.48 kg/m | BSA 1.87 m PHYSICAL EXAM: Vitals are reviewed General:. NAD, well developed HEENT:. Normal Conjunctiva, EOMI Abd:. soft, ND, NT MSK:. Trace b/l LE pitting edema Psych:. AAOx3, normal affect ASSESSMENT/PLAN: Pt is recovering well BMP today -- advised the pt to complete the abx Advised the pt to check his fasting glucose daily and msg the clinic in 1 week Salmonella infection (Primary) - BASIC METABOLIC PANEL Need for prophylactic vaccination and inoculation against influenza - INFLUENZA VACC, QUAD, PF, 6 MONTHS & UP, 0.5 ML, IM Enteritis - BASIC METABOLIC PANEL Type 2 diabetes mellitus with stage 3b chronic kidney disease, without long-term current use of insulin (HCC) - Dexcom G7 Sensor; Use as directed to check blood sugars daily. Change every 10 days. DxE11.9. I spent a total of 40-54 minutes (exact time 42 mins) on the date of service in preparation, delivery, and documentation of the care provided to Jerardo Ochoa Jr. excluding any time spent in the performance of separately billed services. Jaime Garcia MD Family medicine, [address] [place] [id number] documented in this encounter Nursing Notes * Sharon Blanco LPN - 08/22/2023 3:54 PM EST [facility] Hospital discharge In hospital, had bad diarrhea Since being home, has not been able to have a bowel movement for 4 days. documented in this encounter Plan of Treatment Upcoming Encounters Date Type Department Care Team (Late st Contact Info) Description 08/22/2023 5:10 PM EST Anticoagulation Pharmacy, [address] [place] [id number] [place] [id number] PAF (paroxysmal atrial fibrillation) (HCC)* 08/23/2023 7:00 AM EST Anticoagulation Pharmacy, [address] [place] [id number] [place] [id number] 09/01/2023 12:30 PM EST Home Visit [facility] [place], [facility] [address] [place] [address] Sulma Seth, BOBBY [address] [place] [address] 09/13/2023 9:00 AM EST Office Visit Cardiology, [facility] [address] [place] [address] Beth Salter CRNP [address] [place] [phone] 11/23/2023 9:40 AM EDT Office Visit Nephrology, Carla Renae [address] [facility] [place] [address] Armando Cook MD [address] [facility] [place] [address] Pending Results Name Type Priority Associated Diagnoses Date /Time BASIC METABOLIC PANEL Lab Routine Salmonella infection Enteritis 08/22/2023 4:22 PM EST Health Maintenance Due Date Last Done Comments HIV Screening 1985 Hepatitis C Screening 01/29/1988 Cologuard 2015 Fecal Occult Blood Test 2015 Sigmoidoscopy 2015 COVID-19 Vaccine (3 - Pfizer risk series) 11/03/2021 10/06/2021, 06/23/2021 Depression Screening 01/05/2022 01/05/2021 Diabetic Foot Exam 12/14/2022 12/14/2021, 0 10/15/2020, 06/25/2019 HbA1c 01/05/2024 07/06/2023, 08/0 11/2022, 03/29/2023, Additional history exists GFR 02/15/2024 08/16/2023, 07/13, 06/27/2023, Additional history exists Pneumococcal Vaccine: Pediatrics (0 to 5 Years) and At-Risk Patients (6 to 64 Years) (3 - PPSV23 or PCV20) 05/22/2024 05/13/2020, 05/22/2019 Albumin/Creatinine Ratio 06/22/2024 023, 05/27/2023, 03/25/2023, Additional history exists Diabetic Eye Exam 07/11/2024 07/11/2023, , 06/29/2021, Additional history exists TSH 07/25/2024 07/25/2023, 03/12, 01/31/2023, Additional history exists CKD HGB USE SMARTSET 50883 08/16/202408/16, 07/25/2023, 07/25/2023, Additional history exists CKD PHOS USE SMARTSET 05527 08/16/202401/2023, 07/25/2023, 07/06/2023, Additional history exists DTaP,Tdap,and Td [...] this encounter Medical Devices Implanted Type Area Coater Associate Device Identifier Shelf Expiration Date Model / Serial / Lot Port Power Mri W/8fr Cath - [id number] Implanted:Qty: 1 on 09/26/2020 by Simone Michelle MD at OR [facility] Right: Chest CR BARD : PERIPHERAL VASCULAR 10/12/2021 [id number] / / [id number] Description:right IJ Lens Intraoc 19.0 - [id number] - [id number] Implanted:Qty: 1 on 02/03/2021 by Chris Sexton MD at OR [facility] Right: Eye BAUSCH & LOMB 09/11/2025 [id number] / [id number] / Lens Intraoc 19.0 - [id number] - [id number] Implanted:Qty: 1 on 02/24/2021 by Chris Sexton MD at OR [facility] Left: Eye BAUSCH & LOMB 10/12/2025 [id number] / [id number] / [id number] System Urolift - [id number] Implanted:Qty: 3 on 03/17/2023 by Devyn Paniagua MD at OR [facility] N/A: Urethra [employer] 11/03/2023 [id number] / / [id number] documented as of this encounter Visit Diagnoses Diagnosis PAF (paroxysmal atrial fibrillation) (HCC)- Primary Atrial fibrillation Salmonella infection- Primary Salmonella infection, unspecified Need for prophylactic vaccination and inoculation against influenza Enteritis Other and unspecified noninfectious gastroenteritis and colitis Type 2 diabetes mellitus with stage 3b chronic kidney disease, without long-term current use of insulin (HCC) documented in this encounter Advance Directives Latest [...] and were consensually agreed upon. Care Teams Regrinder Operator Relationship Specialty Start Date End Date Jaime Garcia MD [address] [place] [address] [place] [phone] PCP - General Family Medicine 10/15/20 documented as of this encounter"
--- OUTSIDE RECORDS SUMMARY | 2023-08-26 22:58 | External Medical Summary | Summary of Care ---
Author Name Unknown Organization [facility] Address [address] [place] [address] Phone [phone] Care Team Providers Care Cardroom Attendant Name Role Phone Jaime Garcia MD Primary Care Provide r Reason for Visit * Reason Onset Date Comments Abnormal Test Results 08/22/2023 Encounter Details Date Type Department Care Team (Late st Contact Info) Description 08/22/2023 Telephone Family Medicine [address] [place] [phone] Jaime Garcia MD [address] [place] [address] [place], [place] [id number] Abnormal Test Results Allergies Active Allergy Reactions [...] Use up to 16 weeks Given by [facility] general surgery 12 Packet 3 01/19/2021 Active [...] Information Patient taking differently: 50 mcg Oral [id number], Reported on 04/14/2023 Pantoprazole Sodium 20 MG [...] ons:Atrial fibrillation, unspecified type (HCC),Anticoagulat ion management encounter,correction current use of anticoagulant therapy,Paroxysmal atrial fibrillation [...] evening. 15 mL 3 07/19/2023 Active Pen [place] 32G X 4 MM Use as directed. [...] myeloma without remission 06/14/2014 Overview: Dr Rodriges/ [facility] ADVANCE DIRECTIVE INFORMATION 10/13/2006 Overview: [...] Reddy RPh, PharmD, BCACP Clinical Pharmacist - Bandmill Operator Medication [facility] 08/23/2023, 12:18 PM * Telephone Encounter - An Hurst RPh - 08/22/2023 7:41 PM EST Spoke with Haley from [facility] at [phone]. Confirmed pt held tonight's dose of warfarin due to elevated INR of 6.33 with Bactrim. Denies unusual bleeding or bruising. Last dose of bactrim tomorrow 08/23. Informed pt that MTM will call back tomorrow as scheduled with instructions and next INR check. An Hurst PharmD PGY1 Data Recovery Planner 08/22/2023 7:43 PM * Telephone Encounter - Alcira Perla OSA - 08/22/2023 6:50 PM EST Reason for patient's call: Haley from [facility] calling with a critical lab results. [place] Text was sent to the sec reporting consultant provider. documented in this encounter Plan of Treatment Upcoming Encounters Date Type Department Care Team (Late st Contact Info) Description 08/26/2023 2:20 PM EST Anticoagulation Pharmacy, [address] [place] [address] [place] [address] 09/01/2023 12:30 PM EST [facility] [address] [facility] [place] [address] Sulma Seth, BOBBY [address] [facility] [place] [address] 09/13/2023 9:00 AM EST Office Visit Cardiology, [facility] [address] [facility] [place] [address] Beth Salter CRNP [address] [facility] [place] [phone] 11/23/2023 9:40 AM EDT Office Visit Nephrology, [facility] [address] [facility] [place] [address] Armando Cook MD [address] [facility] [place] [address] Health Maintenance Due Date Last Done Comments [...] Additional history exists CKD HGB USE SMARTSET 88364 08/16/202408/16, 07/25/2023, 07/25/2023, Additional history exists CKD PHOS USE SMARTSET 47130 08/16/2024 12/01/2023, 07/25/2023, 07/06/2023, Additional history exists [...] this encounter Medical Devices Implanted Type Area Category Analyst Device Identifier Shelf Expiration Date Model / Serial / Lot Port Power Mri W/8fr Cath - [id number] Implanted:Qty: 1 on 09/26/2020 by Simone Michelle MD at OR [facility] Right: Chest CR BARD : PERIPHERAL VASCULAR 10/12/2021 [id number] / / [id number] Description:right IJ Lens Intraoc 19.0 - [id number] - [id number] Implanted:Qty: 1 on 02/03/2021 by Chris Sexton MD at OR [facility] Right: Eye BAUSCH & LOMB 09/11/2025 [id number] / [id number] / Lens Intraoc 19.0 - [id number] - [id number] Implanted:Qty: 1 on 02/24/2021 by Chris Sexton MD at OR [facility] Left: Eye BAUSCH & LOMB 10/12/2025 [id number] / [id number] / [id number] System Urolift - [id number] Implanted:Qty: 3 on 03/17/2023 by Devyn Paniagua MD at OR [facility] N/A: Urethra [employer] 11/03/2023 [id number] / / [id number] documented as of this encounter Procedures Procedure [...] and were consensually agreed upon. Care Teams Cardroom Attendant Relationship Specialty Start Date End Date Jaime Garcia MD [address] [place] [address] [place] [phone] PCP - General Family Medicine 10/15/20 documented as of this encounter
--- OUTSIDE RECORDS SUMMARY | 2023-08-26 22:59 | External Medical Summary | Summary of Care ---
Author Name Unknown Organization [facility] Address [address] [place] [address] Phone [phone] Care Team Providers Care Vacuum Worker Name Role Phone Jaime Garcia MD Primary Care Provide r Encounter Details Date Type Department Care Team (Late st Contact Info) Description 08/16/2023 Telephone Pharmacy, [address] [place] [address] [facility] [place] [address] Allergies Active Allergy Reactions Criticality Noted Date Comments Atorvastatin Muscle pain High 03/30/2019 Ezetimibe Muscle pain High 01/25/2020 documented as of this encounter (statuses as of 08/16/2023) Medications Medication Sig Dispensed Refills Start Date [...] to 16 weeks Given by [facility] general surgery 12 Packet 3 01/19/2021 Active OneTouch Ultra Blue In Vitro Strip (Glucose Blood)Indications: Type 2 diabetes mellitus with hemoglobin A1c goal of less than 7.0% ([facility]) Use as directed daily. Test once daily DxE11.9 100 Strip 5 03/02/2021 Active LancetsIndications :Type 2 diabetes mellitus with hemoglobin A1c goal of less than 7.0% ([facility]) Test once daily DxE11.9. 100 [...] 12/14/2021 Active Torsemide 20 MG Oral Tablet (Demadex) [...] (Proamatine)Indica tions:takes 1-3 tabs depending on bp Take 1 Tablet by mouth every morning. [...] Information Patient taking differently: 50 mcg Oral [id number], Reported on 04/14/2023 Pantoprazole Sodium 20 MG Oral Tablet Delayed Release (Protonix)Indicati ons:Gastroesophage al reflux disease without esophagitis TAKE ONE TABLET BY MOUTH EVERY DAY IN THE MORNING 90 Tablet 2 12/26/2022 12/26/19 24 Active Escitalopram Oxalate 10 MG Oral Tablet (Lexapro)Indicatio ns:Lambda light chain myeloma (HCC) TAKE ONE TABLET BY MOUTH IN THE MORNING. 90 Tablet 3 12/16/2022 12/16/19 24 Active Potassium Chloride ER 10 MEQ Oral Tablet Extended ReleaseIndications :Chronic diastolic congestive heart failure (HCC) TAKE ONE TABLET BY MOUTH EVERY DAY 90 Tablet 3 12/13/2022 12/13/19 24 Active Warfarin Sodium 2.5 MG Oral Tablet (Coumadin)Indicati ons:Atrial fibrillation, unspecified type (HCC),Anticoagulat ion management encounter,watermaster current use of anticoagulant therapy,Paroxysmal atrial fibrillation (HCC) TAKE ONE TABLET BY MOUTH ON TUESDAY AND TUESDAY, AND ONE-HALF TABLET ALL OTHER DAYS OR DIRECTED BY ANTICOAGULATION CLINIC 75 Tablet 3 11/10/2022 11/10/19 24 Active Dexamethasone 4 MG Oral Tablet (Decadron) TAKE [...] 90 Tablet 1 04/26/2023 04/25/20 24 Active oxyCODONE HCl 5 MG Oral Tablet (Oxy IR)Indications:Mul tiple myeloma in relapse (HCC) Take 1 Tablet by mouth every 4 hours as needed for Pain, Breakthrough. 30 Tablet 0 06/03/2023 Active DULoxetine HCl 20 MG Oral Capsule Delayed Release Particles (Cymbalta) Take 2 Capsules by mouth in the morning. 180 Capsule 1 06/06/2023 Active Cholecalciferol 50 MCG (2000 UT) Oral TabletIndications: Lambda light chain myeloma (HCC),Multiple myeloma without remission (HCC) Take 50 mcg by mouth in the morning. 30 Tablet 5 06/14/2023 Active Repatha SureClick 140 MG/ML Subcutaneous Solution Auto-injector (evolocumab)Indica tions:Dyslipidemia , goal LDL below 70 INJECT 140MG (1 INJECTION) UNDER THE SKIN EVERY 14 DAYS. REMOVE FROM REFRIGERATOR 30 MINUTES PRIOR TO INJECTION 6 mL 3 06/15/2023 06/14/20 24 Active Dexcom G7 Sensor Use as directed to check blood sugars daily. Change every 10 days. DxE11.9. 3 Each 3 06/23/2023 Active metFORMIN HCl ER 500 MG Oral Tablet Extended Release 24 Hour (Glucophage XR)Indications:Typ e 2 diabetes mellitus with hemoglobin A1c goal of less than 7.0% (HCC) Take 2 Tablets by mouth in the morning. 180 Tablet 1 07/11/2023 Active Insulin Glargine Solostar 100 UNIT/ML Subcutaneous Solution Pen-injector (Lantus SoloStar) Inject 10 Units under the skin every evening. 15 mL 3 07/19/2023 Active Pen [place] 32G X 4 MM Use as directed. Inject Lantus once daily. 50 Each 3 07/19/2023 Active Icosapent Ethyl 1 GM Oral Capsule (Vascepa)Indicatio ns:Hyperlipidemia with target LDL less than 70 Take 2 Capsules by mouth 2 times a day with morning and evening meals. Swallow capsules whole, do not open or break. 360 Capsule 3 07/20/2023 Active documented as of this encounter (statuses as of 08/16/2023) Active Problems Problem Noted Date Diagnosed Date [...] myeloma without remission 06/14/2014 Overview: Dr Rodriges/ [facility] ADVANCE DIRECTIVE INFORMATION 10/13/2006 Overview: No, Advance Directive brochure offered , patient declined. Degeneration of lumbosacral intervertebral disc 02/19/2005 documented as of this encounter (statuses as of 08/16/2023) Resolved Problems Problem Noted Date Diagnosed Date [...] as of this encounter (statuses as of 08/16/2023) Immunizations Name Administration Dates Next Due COVID-19, LNP-s, No Preserve , Azar-sucrose, Ages 12+ (Pfizer) 10/06/2021,06/23/2021 Hepatitis B, 20+ yrs 11/20/2019,06/21/2019,05/22 Pneumococcal Conjugate Vacc, 13 Valent (Prevnar) 05/13/2020 Pneumococcal Polysaccharide PPV23 (Pneumovax) 05/22/2019 SEASONAL INFLUENZA, PF, 6 M & Above, IM , (FLULAVAL or FLUZONE) 06/10/2022,07/23/2021,07/31/2020,05/22 Seasonal Influenza, Split, I IV3, No [...] encounter Miscellaneous Notes * Telephone Encounter - Jessy Barbara Jurgen, [facility] - 08/16/2023 3:01 PM EST Per chart review, patient currently admitted at [facility]. Admitted on 08/09 w/ salmonella diarrhea. Per [facility] records, INR became supra-therapeutic while admitted. Likely d/t abx use. Currently on temporary dose decrease of 1mg daily. Receiving subq heparin until INR is therapeutic. Call placed to f/u for discharge. Barbara Jiménez RPh, PharmD Clinical Pharmacist - Invasive Manager Medication Therapy Disease Management Clinic 08/16/2023, 3:03 PM Ph.[phone] documented in this encounter Plan of Treatment Upcoming Encounters Date Type Department Care Team (Late st Contact Info) Description 08/18/2023 5:10 PM EST Anticoagulation Pharmacy, [address] [place] [address] [place] [address] 09/13/2023 9:00 AM EST Office Visit Cardiology, [facility] [address] [facility] [place] [address] Beth Salter CRNP [address] [facility] [place] [phone] 11/23/2023 9:40 AM EDT Office Visit Nephrology, [facility] [address] [facility] [place] [address] Armando Cook MD [address] [facility] [place] [address] Health Maintenance Due Date Last Done Comments HIV Screening 1985 Hepatitis C Screening 01/29/1988 Cologuard 2015 Fecal Occult Blood Test 2015 Sigmoidoscopy 2015 COVID-19 Vaccine (3 - Pfizer risk series) 11/03/2021 10/06/2021, 06/23/2021 Depression Screening 01/05/2022 01/05/2021 Diabetic Foot Exam 12/14/2022 12/14/2021, 0 10/15/2020, 06/25/2019 Influenza Vaccine (FLU shot) (#1) 2023 06/10/2022, 07/23/2021, 07/31/2020, Additional history exists HbA1c 01/05/2024 07/06/2023, 08/11/2022, 03/29/2023, Additional history exists GFR 01/23/2024 07/25/2023, 06/12, 06/22/2023, Additional history exists Pneumococcal Vaccine: Pediatrics (0 to 5 Years) and At-Risk Patients (6 to 64 Years) (3 - PPSV23 or PCV20) 05/22/2024 05/13/2020, 05/22/2019 Albumin/Creatinine Ratio 06/22/2024 023, 05/27/2023, 03/25/2023, Additional history exists Diabetic Eye Exam 07/11/2024 07/11/2023, , 06/29/2021, Additional history exists CKD HGB USE SMARTSET 57076 07/25/202407/25, 07/25/2023, 06/27/2023, Additional history exists CKD PHOS USE SMARTSET 43335 07/25/202407/13, 07/06/2023, 06/27/2023, Additional history exists TSH 07/25/2024 07/25/2023, 03/12, 01/31/2023, Additional history exists DTaP,Tdap,and Td Vaccines (2 [...] this encounter Medical Devices Implanted Type Area Body Corporate Manager Device Identifier Shelf Expiration Date Model / Serial / Lot Port Power Mri W/8fr Cath - [id number] Implanted:Qty: 1 on 09/26/2020 by Simone Michelle MD at OR [facility] Right: Chest CR BARD : PERIPHERAL VASCULAR 10/12/2021 [id number] / / [id number] Description:right IJ Lens Intraoc 19.0 - [id number] - [id number] Implanted:Qty: 1 on 02/03/2021 by Chris Sexton MD at OR [facility] Right: Eye BAUSCH & LOMB 09/11/2025 [id number] / [id number] / Lens Intraoc 19.0 - [id number] - [id number] Implanted:Qty: 1 on 02/24/2021 by Chris Sexton MD at OR [facility] Left: Eye BAUSCH & LOMB 10/12/2025 [id number] / [id number] System Urolift - [id number] Implanted:Qty: 3 on 03/17/2023 by Devyn Paniagua MD at OR [facility] N/A: Urethra [employer] 11/03/2023 [id number] / / [id number] documented as of this encounter Visit Diagnoses [...] and were consensually agreed upon. Care Teams Vacuum Worker Relationship Specialty Start Date End Date Jaime Garcia MD [address] [place] [address] [place] [address] PCP - General Family Medicine 10/15/20 documented as of this encounter
--- OUTSIDE RECORDS SUMMARY | 2023-08-26 22:59 | External Medical Summary | Summary of Care ---
Author Name Unknown Organization [facility] Address [address] [place] [address] Phone [phone] Care Team Providers Care Cold Meat Cook Name Role Phone Jaime Garcia MD Primary Care Provide r Reason for Visit * Reason Comments Outpatient Testing Encounter Details Date Type Department Care Team (Late st Contact Info) Description 08/22/2023 4:10 PM EST Laboratory Laboratory [address] [place] [phone] [address] [place] [address] Arrived Allergies Active Allergy Reactions Criticality Noted Date [...] Use up to 16 weeks Given by [facility] general surgery 12 Packet 3 1 Active OneTouch Ultra Blue In Vitro Strip (Glucose Blood)Indications: Type 2 diabetes mellitus with hemoglobin A1c goal of less than 7.0% ([facility]) Use as directed daily. Test once daily DxE11.9 100 Strip 5 1 Active LancetsIndications :Type 2 diabetes mellitus with hemoglobin A1c goal of less than 7.0% ([facility]) Test once daily DxE11.9. [...] Information Patient taking differently: 50 mcg Oral [id number], Reported on 04/14/2023 Pantoprazole Sodium 20 MG [...] ons:Atrial fibrillation, unspecified type (HCC),Anticoagulat ion management encounter,MCFP current use of anticoagulant therapy,Paroxysmal atrial fibrillation [...] A1c goal of less than 7.0% ([facility]) Take 2 Tablets by mouth in the morning. 180 Tablet 1 3 Active Insulin Glargine Solostar 100 UNIT/ML Subcutaneous Solution Pen-injector (Lantus SoloStar) Inject 10 Units under the skin every evening. 15 mL 3 3 Active Pen [place] 32G X 4 MM Use as directed. [...] Tablet before bedtime. 0 Active Dexcom G7 Sensor Use as directed [...] myeloma without remission 06/14/2014 Overview: Dr Rodriges/ [facility] ADVANCE DIRECTIVE INFORMATION 10/13/2006 Overview: No, Advance [...] Description 08/22/2023 5:10 PM EST Anticoagulation Pharmacy, [address] [place] [phone] [place] [address] PAF (paroxysmal atrial fibrillation) ([facility])* 08/22/2023 6:00 PM EST Office Visit Family Medicine [address] [place] [phone] Jaime Garcia MD [address] [place] [address] [place] [address] Salmonella infection*; Need for prophylactic vaccination and inoculation against influenza; Enteritis; Type 2 diabetes mellitus with stage 3b chronic kidney disease, without long-term current use of insulin (HCC) 08/23/2023 7:00 AM EST Anticoagulation Pharmacy, [address] [place] [address] [place] [address] 09/01/2023 12:30 PM EST [facility] [place] [address] Sulma Seth, RN [address] [place] [address] 09/13/2023 9:00 AM EST Office Visit Cardiology, [facility] [address] [place] [address] Beth Salter CRNP [address] [place] [address] [place] [phone] 11/23/2023 9:40 AM EDT Office Visit Nephrology, [facility] [address] [place] [address] Armando Cook MD 200 [facility] [place] [address] Health Maintenance Due Date Last Done Comments [...] Additional history exists CKD HGB USE SMARTSET 03911 08/16/202408/16, 07/25/2023, 07/25/2023, Additional history exists CKD PHOS USE SMARTSET 28622 08/16/2024 12/0 01/2023, 07/25/2023, 07/06/2023, Additional history exists DTaP,Tdap,and [...] this encounter Medical Devices Implanted Type Area Ship Purser Device Identifier Shelf Expiration Date Model / Serial / Lot Port Power Mri W/8fr Cath - [id number] Implanted:Qty: 1 on 09/26/2020 by Simone Michelle MD at OR [facility] Right: Chest CR BARD : PERIPHERAL VASCULAR 10/12/2021 [id number] / / [id number] Description:right IJ Lens Intraoc 19.0 - [id number] - [id number] Implanted:Qty: 1 on 02/03/2021 by Chris Sexton MD at OR [facility] Right: Eye BAUSCH [employer] LOMB 09/11/2025 [id number] / [id number] / Lens Intraoc 19.0 - [id number] - [id number] Implanted:Qty: 1 on 02/24/2021 by Chris Sexton MD at OR [facility] Left: Eye BAUSCH & LOMB 10/12/2025 [id number] / [id number] System Urolift - [id number] Implanted:Qty: 3 on 03/17/2023 by Devyn Paniagua MD at OR [facility] N/A: Urethra [employer] 11/03/2023 HF585-8 / / [id number] documented as of this encounter Advance Directives [...] and were consensually agreed upon. Care Teams Cold Meat Cook Relationship Specialty Start Date End Date Jaime Garcia MD [address] [place] [address] [place] [address] PCP - General Family Medicine 10/15/20 documented as of this encounter
--- OUTSIDE RECORDS SUMMARY | 2023-08-26 22:59 | External Medical Summary | Summary of Care ---
Author Name Unknown Organization [facility] Address [address] [place] [address] Phone [phone] Care Team Providers Care Staff Genetic Counselor Name Role Phone aJime Garcia MD Primary Care Provide r Reason for Visit * Reason Comments Dosage Adjustment Via Phone (anticoag Cl inic) Hospital Follow-Up Encounter Details Date Type Department Care Team (Latest Contact Info) Description 08/22/2023 5:10 PM EST Anticoagulation Pharmacy, [address] [place] [address] [place] [address] PAF (paroxysmal atrial fibrillation) ([facility])* Allergies Active Allergy Reactions Criticality Noted [...] Use up to 16 weeks Given by [facility] general surgery 12 Packet 3 01/19/2021 Active OneTouch Ultra Blue In Vitro Strip (Glucose Blood)Indications: Type 2 diabetes mellitus with hemoglobin A1c goal of less than 7.0% ([facility]) Use as directed daily. Test once daily DxE11.9 100 Strip 5 03/02/2021 Active LancetsIndications :Type 2 diabetes mellitus with hemoglobin A1c goal of less than 7.0% ([facility]) Test once daily DxE11.9. 100 Each [...] Information Patient taking differently: 50 mcg Oral [id number], Reported on 04/14/2023 Pantoprazole Sodium 20 MG [...] fibrillation, unspecified type (HCC),Anticoagulat ion management encounter,terminal carman current use of anticoagulant therapy,Paroxysmal atrial fibrillation [...] goal of less than 7.0% ([facility]) Take 2 Tablets by mouth in the morning. 180 Tablet 1 07/11/2023 Active Insulin Glargine Solostar 100 UNIT/ML Subcutaneous Solution Pen-injector (Lantus SoloStar) Inject 10 Units under the skin every evening. 15 mL 3 07/19/2023 Active Pen [place] 32G X 4 MM Use as directed. [...] myeloma without remission 06/14/2014 Overview: Dr Rodriges/ [facility] ADVANCE DIRECTIVE INFORMATION 10/13/2006 Overview: No, Advance [...] as of this encounter Progress Notes * Barbara Jiménez, [facility] - 08/22/2023 9:28 AM EST Medication Therapy Disease Management - Anticoagulation Patient: Jerardo Walton Jr. | : 1970 Subjective Contacts Type Contact Phone/Fax 08/22/2023 09:50 AM EST Phone (Outgoing) JAYLEEN WALTON (Emergency Contact) [phone] Patient-Reported Symptoms: Patient Findings Positives: Change in health, Change in medications, Change in diet/appetite, Hospital admission Negatives: Signs/symptoms of thrombosis, Signs/symptoms of bleeding, Change in alcohol use, Change in activity, Upcoming invasive procedure, Missed doses, Extra doses, Bruising Objective Current Warfarin Dose As of 08/22/2023 Warfarin maintenance plan: 1.25 mg (2.5 mg x 0.5) every day INR Result As of 08/22/2023 INR goal: 2.0-3.0 INR used for dosing: No new INR available at time of encounter Assessment & Plan Warfarin Plan As of 08/22/2023 Full warfarin instructions: 08/22: Hold; Otherwise 1.25 mg every day Next INR check: 08/22/2023 Repeat PT/INR today Weekly dose: not changed Additional Dosing Information: Discharged from [facility] on 08/18 on x6 day course of Bactrim. Started on 08/18, last dose should be on 08/23. Discharged on SEARCH ENGINEER dose. Instructed to HOLD tonight due to likely INR elevation with Bactrim interaction. [facility] to obtain INR today. Will plan to f/u on result tomorrow. Description AMIO start 10/29/22 - 11/22/22 BID then QD after AMIO STOPPED 05/31 Faxed orders to [facility] office at [phone] as requested. # Please fax INR results to [facility] at [phone] [facility] can be reached at with any questions or problems Ok to use fingerstick Dx: Praoxysmal atrial fibrillation I48.0 Ordering provider: Fortunato Stout MD Barbara Jiménez RPh Clinical Pharmacist 08/22/2023, 9:28 AM * Barbara Jiménez RPh - 08/22/2023 9:14 AM EST Patient admitted to [facility] on 08/09 w/ salmonella diarrhea. Discharged on 08/18. Per [facility] records, INR became supra-therapeutic while admitted. Likely d/t abx use. Temp dose decrease while admitted, discharged on home dose. However, per discharge summary patient was discharged on Bactrim as well as SEARCH ENGINEER dose. Spoke with patient's spouse. Working with [facility]. Agreeable to drawn INR today. Instructed to HOLD dose tonight until result is obtain d/t Bactrim interaction. Barbara Jiménez RPh, PharmD Clinical Pharmacist - Occupational Health And Safety Adviser Medication Therapy [facility] 08/22/2023, 9:57 AM [phone] documented in this encounter Plan of Treatment Upcoming Encounters Date Type Department Care Team (Late st Contact Info) Description 08/22/2023 6:00 PM EST Office Visit Family Medicine [address] [place] [phone] Jaime Garcia MD [address] [place] [address] [place] [phone] 08/23/2023 7:00 AM EST Anticoagulation Pharmacy, [address] [place] [address] [place] [address] 09/01/2023 12:30 PM EST [facility] Visit [facility], [facility] [address] [facility] [place] [address] Sulma Seth, RN [address] [place] [address] 09/13/2023 9:00 AM EST Office Visit [facility], [facility] [address] [facility] [place] [address] Beth Salter CRNP [address] [facility] [place] [phone] 11/23/2023 9:40 AM EDT Office Visit Nephrology, [facility] [address] [facility] [place] [address] Armando Cook MD [address] [place] [address] Health Maintenance Due Date Last Done Comments HIV Screening 1985 Hepatitis C Screening 01/29/1988 Cologuard 2015 Fecal Occult Blood Test 2015 Sigmoidoscopy 2015 COVID-19 Vaccine (3 - Pfizer risk series) 11/03/2021 10/06/2021, 06/23/2021 Depression Screening 01/05/2022 01/05/2021 Diabetic Foot Exam 12/14/2022 12/14/2021, 0 10/15/2020, 06/25/2019 Influenza Vaccine (FLU shot) (#1) 2023 06/10/2022, 07/23/2021, 07/31/2020, Additional history exists HbA1c 01/05/2024 07/06/2023, 08/0 11/2022, 03/29/2023, Additional [...] Additional history exists CKD HGB USE SMARTSET 50588 08/16/202408/16, 07/25/2023, 07/25/2023, Additional history exists CKD PHOS USE SMARTSET 82937 08/16/202401/2023, 07/25/2023, 07/06/2023, Additional history exists DTaP,Tdap,and [...] this encounter Medical Devices Implanted Type Area Mold Machine Operator Device Identifier Shelf Expiration Date Model / Serial / Lot Port Power Mri W/8fr Cath - [id number] Implanted:Qty: 1 on 09/26/2020 by Simone Michelle MD at OR [facility] Right: Chest CR BARD : PERIPHERAL VASCULAR 10/12/2021 [id number] / / [id number] Description:right IJ Lens Intraoc 19.0 - [id number] - [id number] Implanted:Qty: 1 on 02/03/2021 by Chris Sexton MD at OR [facility] Right: Eye [employer] 09/11/2025 [id number] / [id number] / Lens Intraoc 19.0 - [id number] - [id number] Implanted:Qty: 1 on 02/24/2021 by Chris Sexton MD at OR [facility] Left: Eye BAUSCH [employer] LOMB 10/12/2025 [id number] / [id number] / [id number] System Urolift - [id number] Implanted:Qty: 3 on 03/17/2023 by Devyn Paniagua MD at OR [facility] N/A: Urethra [employer] 11/03/2023 [id number] / / [id number] documented as of this encounter Procedures Procedure Name Priority Date/Time Associated Diagnosis Comments OUTSIDE LAB-PT/INR Routine 08/18/2023 OUTSIDE LAB-PT/INR Routine 08/17/2023 OUTSIDE LAB-PT/INR Routine 08/16/2023 OUTSIDE LAB-PT/INR Routine 08/15/2023 OUTSIDE LAB-PT/INR Routine 08/14/2023 OUTSIDE LAB-PT/INR Routine 08/13/2023 documented in this encounter Results * OUTSIDE LAB-PT/INR (08/18/2023) Pathologist [facility] INR-OUTSIDE LAB 2.5 08/18/2023 History Per Patient LABORATORY * OUTSIDE LAB-PT/INR (08/17/2023) Pathologist [facility] INR-OUTSIDE LAB 1.9 08/17/2023 History Per Patient LABORATORY * OUTSIDE LAB-PT/INR (08/16/2023) Pathologist [facility] INR-OUTSIDE LAB 1.6 08/16/2023 Narrative Resulting Agency Comment [facility] History Per Patient LABORATORY * OUTSIDE LAB-PT/INR (08/15/2023) Pathologist [facility] INR-OUTSIDE LAB 1.4 08/15/2023 Narrative Resulting Agency Comment [facility] History Per Patient LABORATORY * OUTSIDE LAB-PT/INR (08/14/2023) Pathologist [facility] INR-OUTSIDE LAB 1.3 08/14/2023 Narrative Resulting Agency Comment [facility] History Per Patient LABORATORY * OUTSIDE LAB-PT/INR (08/13/2023) Pathologist [facility] INR-OUTSIDE LAB 1.4 08/13/2023 Narrative Resulting Agency Comment [facility] History Per Patient LABORATORY documented in this [...] and were consensually agreed upon. Care Teams Staff Genetic Counselor Relationship Specialty Start Date End Date Jaime Garcia MD [address] [place] [address] [place] [phone] PCP - General Family Medicine 10/15/20 documented as of this encounter"
--- OUTSIDE RECORDS SUMMARY | 2023-08-26 22:59 | External Medical Summary | Summary of Care ---
Author Name Unknown Organization [facility] Address [address] [place] [address] Phone [phone] Care Team Providers Care Supervising Film Or Videotape Editor Name Role Phone Jaime Garcia MD Primary Care Provide r Reason for Visit * Reason Comments [facility]: Transition of Care Encounter Details Date Type Department Care Team (Late st Contact Info) Description 08/20/2023 2:00 PM EST [facility] Visit [facility], [facility] [address] [place] [address] [facility], Nurse [facility] [address] [facility] [place] [address] Allergies Active Allergy Reactions Criticality Noted Date Comments Atorvastatin Muscle pain High 03/30/2019 Ezetimibe Muscle pain High 01/25/2020 documented as of this encounter (statuses as of 08/20/2023) Medications Medication Sig Dispensed Refills Start Date [...] Use up to 16 weeks Given by [facility] general surgery 12 Packet 3 1 Active OneTouch Ultra Blue In Vitro Strip (Glucose Blood)Indications: Type 2 diabetes mellitus with hemoglobin A1c goal of less than 7.0% ([facility]) Use as directed daily. Test once daily DxE11.9 100 Strip 5 1 Active LancetsIndications :Type 2 diabetes mellitus with hemoglobin A1c goal of less than 7.0% ([facility]) Test once daily DxE11.9. 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 Change every 10 days. DxE11.9. 3 Each 3 3 Active metFORMIN HCl ER 500 MG Oral Tablet Extended Release 24 Hour (Glucophage XR)Indications:Typ e 2 diabetes mellitus with hemoglobin A1c goal of less than 7.0% ([facility]) Take 2 Tablets by mouth in the morning. 180 Tablet 1 3 Active Insulin Glargine Solostar 100 UNIT/ML Subcutaneous Solution Pen-injector (Lantus SoloStar) Inject 10 Units under the skin every evening. 15 mL 3 3 Active Pen [place] 32G X 4 MM Use as directed. [...] and 1 Tablet before bedtime. 0 Active Escitalopram Oxalate 10 MG Oral Tablet (Lexapro)Indicatio ns:Lambda light chain myeloma (HCC) TAKE ONE TABLET BY MOUTH IN THE MORNING. 90 Tablet 3 3 08/20/20 23 Discontinu ed(Medicat ion List Clean Up) documented as of this encounter (statuses as of 08/20/2023) Active Problems Problem Noted Date Diagnosed Date [...] myeloma without remission 06/14/2014 Overview: Dr Rodriges/ [facility] ADVANCE DIRECTIVE INFORMATION 10/13/2006 Overview: No, Advance Directive brochure offered , patient declined. Degeneration of lumbosacral intervertebral disc 02/19/2005 documented as of this encounter (statuses as of 08/20/2023) Resolved Problems Problem Noted Date Diagnosed Date [...] as of this encounter (statuses as of 08/20/2023) Immunizations Name Administration Dates Next Due COVID-19, [...] Sign Reading Time Taken Comments Blood Pressure 118/60 08/20/2023 2:04 PM EST Pulse 80 08/20/2023 2:03 PM EST Temperature - - Respiratory Rate 16 08/20/2023 2:04 PM EST Oxygen Saturation 98% 08/20/2023 2:03 PM EST Inhaled Oxygen Concentration - - Weight 72.8 kg (160 lb 6.4 oz) 08/20/2023 2:04 P M EST Height - - Body Mass Index 23.69 03/17/2023 6:42 AM EDT documented in this encounter Progress Notes * Rufina Lucia RN - 08/20/2023 1:54 PM EST [facility] Automotive Exhaust Emissions Technician Monthly Visit Date: 08/20/2023 Time: 1:55 PM Name: Jerardo Ochoa Jr. 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 Salmonella / Dehydration-Pt was discharged home with 6 more days of bactrim which he has been tolerating without problems. Also taking probiotic as recommended. Last stool was. Eating better since coming home. Taking metamucil daily. Taking magnesium supplements as ordered. Will have repeat labs this coming week. Has follow up pcp appt 08/22 but will be after lab closes. Will need home phlebotomy referral due to weakness. HF-Still has some +1 pitting edema of ankels, feet. Had fluid overload while in the hospital after aggressive rehydration. Mostly resolved after restarting home diuretic regimen of torsemide 20mg daily with extra tab for swelling. Pt agreeable to do daily wts and call if wt gain of 3 lbs or more in24 hours or 5 lbs in one week. Weakness-pt fatigues easily. Reports that legs are weak and going up steps to 2nd floor is very taxing on him. High risk for falls. Would benefit from home PT,OT. Will request referral from pcp. Plan: Daily wts -call if wt gain of 3 lbs or more in a day or 5 lbs in one week Monitor Needs home PT and home phleb. Return with RNCM in 2 weeks. Physical Exam: BP 118/60 (BP Site: Left Arm, BP Position: Standing) | Pulse 80 | Resp 16 | Wt 72.8 kg (160 lb 6.4 oz) | SpO2 98% | BMI 23.69 kg/m | BSA 1.88 m Pain 0 Physical Exam Cardiovascular: Rate and Rhythm: Normal rate and regular rhythm. Pulses: Normal pulses. Pulmonary: Effort: Pulmonary effort is normal. Breath sounds: Normal breath sounds. Abdominal: General: Bowel sounds are normal. There is no distension. Palpations: Abdomen is soft. Musculoskeletal: General: Normal range of motion. Right lower leg: Edema present. Left lower leg: Edema present. Comments: +1 in ankles, feet Skin: General: Skin is warm and dry. Neurological: Mental Status: He is alert and oriented to person, place, and time. Psychiatric: Mood and Affect: Mood normal. Behavior: Behavior normal. Thought Content: Thought content normal. Judgment: Judgment normal. Problems/Symptoms: Review of Systems Constitutional: Negative for chills and fever. HENT: Negative. Eyes: Negative. Respiratory: Negative for shortness of breath and wheezing. Cardiovascular: Negative. Endocrine: Negative. Genitourinary: Positive for testicular pain. Negative for difficulty urinating and dysuria. Allergic/Immunologic: Negative. Neurological: Positive for dizziness (intermittent). Medication Reconciliation: (See medication list) Does patient take medications as ordered: Yes Patient Well Being: PHQ2/9: No questionnaires available. [facility]-10 Completed this Visit: Yes. [facility]-10: Reason Completed: Status post ED visit/hospital admission [facility]-10 Interventions: Fall education provided, reviewed/provided Fall brochure Referral: PT: Other: strengthening/ gait training. OT: strengthening Advised Provider/Advanced Practitioner aware of fall risk concerns Advanced Care Planning: Full measures Reinforcement/Education: Reviewed HF symptom monitoring: -Weigh self daily in am, post-void and record -Do not add salt to food, avoid foods high in sodium -Limit fluids to 2 liters per day -Report the following: ->2 lb weight gain in one day or 5 lbs in a week to PCP -increased edema in feet, abdomen or hands -increased SOB and cough, especially if at night -increased fatigue or vertigo Educated on home safety: Create a fall proof home Clear floors of clutter, loose wires, throw rugs, and cords. Make sure halls, stairways, and entrances are well lit. Install a nightlight in your bedroom, hallway and bathroom. Install grab bars or handrails in the bathroom and on stairs. Use a non-skid tub/shower mat. Avoid climbing on a chair; instead use a step stool with a high handrail. Keep sidewalks and steps in good repair Keep steps and sidewalks free of snow and ice. Using aids to support and prevent falls If you have poor balance or have fallen in the past, consider additional support such as a cane or walker. Use a cane with good support and that is the proper length for you. Use a walker if a cane doesnt provide enough support. Avoid medications that increase the risk of falling by causing dizziness, change in sensation or slowed reflexes. Certain medicines may cause falls - blood pressure pills, heart medicines, water pills, or sleepingpills. Be sure to understand each medicine that you are taking and any side effects that may occur. Improve your balance and flexibility with muscle strengthening exercises. Ask your health care provider for some exercises that will be right for you. Reinforced safety education and fall prevention. and Reinforced medication regimen. Timing., Dosing., and Purspose. Home Interventions Provided: Reinforced current Plan of Care, including self-management and medication regimen Patient's 'Red Flags': Increased dizziness or light headed feeling Return of watery stools N/v -inability to take in adequate fluids Wt gain more than 2 lbs in 24 hours or 5 lbs in one week Patient Needs to Remember: Call [facility] at with any new or worsening health concerns or problems, red flag symptoms. Referrals Needed: Home Health Follow Up: Is there cellular connectivity/connectivity in the home? Yes Does the patient have internet in the home? Yes Patient encouraged to call the intake phone number for all urgent but not emergent issues. Is the patient new to [facility] within the last 30 days? No, Assess appropriateness for upcoming telehealth visits. Cancel telehealth visits & schedule home visit with care steamfitter(s)as indicated. Provider is in agreement with Plan of Care: Yes Scheduled to follow up with patient in 2 weeks. Rufina Lucia RN 08/20/2023 1:55 PM documented in this encounter Plan of Treatment Upcoming Encounters Date Type Department Care Team (Late st Contact Info) Description 08/22/2023 5:10 PM EST Anticoagulation Pharmacy, [address] [place] [phone] [place] [address] 08/22/2023 6:00 PM EST Office Visit Family Medicine [address] [place] [phone] Jaime Garcia MD [address] [place] [address] [place] [address] 09/01/2023 12:30 PM EST [facility] Visit [facility], [facility] [address] [place] [address] Sulma Seth, BOBBY [address] [place] [address] 09/13/2023 9:00 AM EST Office Visit Cardiology, [facility] [address] [place] [address] Beth Salter CRNP [address] [place] [phone] 11/23/2023 9:40 AM EDT Office Visit Nephrology, [facility] [address] [facility] [place] [address] Armando Cook MD [address] [facility] [place] [address] Health Maintenance Due Date Last Done Comments [...] Additional history exists CKD HGB USE SMARTSET 96512 08/16/202408/16, 07/25/2023, 07/25/2023, Additional history exists CKD PHOS USE SMARTSET 20256 08/16/202401/2023, 07/25/2023, 07/06/2023, Additional history exists DTaP,Tdap,and [...] this encounter Medical Devices Implanted Type Area Field Liability Generalist Device Identifier Shelf Expiration Date Model / Serial / Lot Port Power Mri W/8fr Cath - [id number] Implanted:Qty: 1 on 09/26/2020 by Simone Michelle MD at OR [facility] Right: Chest CR BARD : PERIPHERAL VASCULAR 10/12/2021 [id number] / / [id number] Description:right IJ Lens Intraoc 19.0 - [id number] - [id number] Implanted:Qty: 1 on 02/03/2021 by Chris Sexton MD at OR [facility] Right: Eye [employer]OM[employer] 09/11/2025 [id number] / [id number] / Lens Intraoc 19.0 - [id number] - [id number] Implanted:Qty: 1 on 02/24/2021 by Chris Sexton MD at OR [facility] Left: Eye BAUSCH [employer] LOMB 10/12/2025 [id number] / [id number] System Urolift - [id number] Implanted:Qty: 3 on 03/17/2023 by Devyn Paniagua MD at OR [facility] N/A: Urethra [employer] 11/03/2023 [id number] / / [id number] documented as of this encounter Advance Directives [...] and were consensually agreed upon. Care Teams Supervising Film Or Videotape Editor Relationship Specialty Start Date End Date Jaime Garcia MD [address] [place] [address] [place] [phone] PCP - General Family Medicine 10/15/20 documented as of this encounter"
--- OUTSIDE RECORDS SUMMARY | 2023-08-26 22:59 | External Medical Summary | Summary of Care ---
Author Name Unknown Organization [facility] Address [address] [place] [address] Phone [phone] Care Team Providers Care Audio Visual Tech Name Role Phone Jaime Garcia MD Primary Care Provide r Reason for Visit * Reason Comments Medication Refill Encounter Details Date Type Department Care Team (Late st Contact Info) Description 08/18/2023 Refill [facility] Tyree UGARTE [address] [facility] [place] [address] Marybel Fung MD [address] [facility] [place] [address] Multiple myeloma in relapse (HCC) Allergies Active Allergy Reactions Criticality Noted Date Comments Atorvastatin Muscle pain High 03/30/2019 Ezetimibe Muscle pain High 01/25/2020 documented as of this encounter (statuses as of 08/18/2023) Medications Medication Sig Dispensed Refills Start Date [...] Use up to 16 weeks Given by [facility] general surgery 12 Packet 3 01/19/2021 Active OneTouch Ultra Blue In Vitro Strip (Glucose Blood)Indications: Type 2 diabetes mellitus with hemoglobin A1c goal of less than 7.0% ([facility]) Use as directed daily. Test once daily DxE11.9 100 Strip 5 03/02/2021 Active LancetsIndications :Type 2 diabetes mellitus with hemoglobin A1c goal of less than 7.0% ([facility]) Test once daily DxE11.9. 100 Each 5 [...] Information Patient taking differently: 50 mcg Oral [id number], Reported on 04/14/2023 Pantoprazole Sodium 20 MG [...] goal of less than 7.0% ([facility]) Take 2 Tablets by mouth in the morning. 180 Tablet 1 07/11/2023 Active Insulin Glargine Solostar 100 UNIT/ML Subcutaneous Solution Pen-injector (Lantus SoloStar) Inject 10 Units under the skin every evening. 15 mL 3 07/19/2023 Active Pen [place] 32G X 4 MM Use as directed. [...] as of this encounter (statuses as of 08/18/2023) Active Problems Problem Noted Date Diagnosed Date [...] myeloma without remission 06/14/2014 Overview: Dr Rodriges/ [facility] ADVANCE DIRECTIVE INFORMATION 10/13/2006 Overview: No, Advance Directive brochure offered , patient declined. Degeneration of lumbosacral intervertebral disc 02/19/2005 documented as of this encounter (statuses as of 08/18/2023) Resolved Problems Problem Noted Date Diagnosed Date [...] as of this encounter (statuses as of 08/18/2023) Immunizations Name Administration Dates Next Due COVID-19, [...] encounter Miscellaneous Notes * Telephone Encounter - Kwaku Higuera MD - 08/18/2023 11:29 AM EST Not my patient * Telephone Encounter - Kwaku Higuera MD - 08/18/2023 11:29 AM ESTRefused Prescriptions: Disp Refills oxyCODONE HCl 5 MG Oral Tablet (Oxy IR) 30 Tab*0 Sig: Take 1 Tablet by mouth every 4 hours as needed for Pain, Breakthrough.Refused By: PRO HIGUERAeason for Refusal: Managed by another physician documented in this encounter Plan of Treatment Upcoming Encounters Date Type Department Care Team (Late st Contact Info) Description 08/18/2023 5:10 PM EST Anticoagulation Pharmacy, [address] [place] [phone] [place] [address] PAF (paroxysmal atrial fibrillation) (HCC)* 08/22/2023 5:10 PM EST Anticoagulation Pharmacy, [address] [place] [address] [place] [address] 09/13/2023 9:00 AM EST Office Visit Cardiology, [facility] [address] [facility] [place] [address] Beth Salter CRNP [address] [place] [phone] 11/23/2023 9:40 AM EDT Office Visit Nephrology, [facility] [address] [facility] [place] [address] Armando Cook MD [address] [facility] [place] [address] Health Maintenance Due Date Last Done Comments [...] or PCV20) 05/22/2024 05/13/2020, 05/22/2019 Albumin/Creatinine Ratio 06/22/202406/22/ 023, 05/27/2023, 03/25/2023, Additional history exists Diabetic Eye Exam 07/11/2024 07/11/2023, , 06/29/2021, Additional history exists TSH 07/25/2024 07/25/2023, 03/12, 01/31/2023, Additional history exists CKD HGB USE SMARTSET 95030 08/16/202408/16, 07/25/2023, 07/25/2023, Additional history exists CKD PHOS USE SMARTSET 46304 08/16/2024 12/0 01/2023, 07/25/2023, 07/06/2023, Additional history [...] this encounter Medical Devices Implanted Type Area Nail Specialist Device Identifier Shelf Expiration Date Model / Serial / Lot Port Power Mri W/8fr Cath - [id number] Implanted:Qty: 1 on 09/26/2020 by Simone Michelle MD at OR [facility] Right: Chest CR BARD : PERIPHERAL VASCULAR 10/12/2021 [id number] / / [id number] Description:right IJ Lens Intraoc 19.0 - [id number] - [id number] Implanted:Qty: 1 on 02/03/2021 by Chris Sexton MD at OR [facility] Right: Eye [employer]USCH [employer] LOMB 09/11/2025 [id number] / [id number] / Lens Intraoc 19.0 - [id number] - [id number] Implanted:Qty: 1 on 02/24/2021 by Chris Sexton MD at OR [facility] Left: Eye BAUSCH & LOMB 10/12/2025 [id number] / [id number] / [id number] System Urolift - [id number] Implanted:Qty: 3 on 03/17/2023 by Devyn Paniagua MD at OR [facility] N/A: Urethra [employer] 11/03/2023 [id number] / / [id number] documented as of this encounter Visit Diagnoses Diagnosis PAF (paroxysmal atrial fibrillation) (HCC)- Primary Atrial fibrillation Multiple myeloma in relapse (HCC) Multiple myeloma, in relapse documented in this encounter Advance Directives Latest [...] and were consensually agreed upon. Care Teams Audio Visual Tech Relationship Specialty Start Date End Date Jaime Garcia MD [address] [place] [address] [place] [phone] PCP - General Family Medicine 10/15/20 documented as of this encounter
--- OUTSIDE RECORDS SUMMARY | 2023-08-26 22:59 | External Medical Summary | Summary of Care ---
Author Name Unknown Organization [facility] Address [address] [place] [address] Phone [phone] Care Team Providers Care Diploma Medical Assistant Name Role Phone Jaime Garcia MD Primary Care Provide r Reason for Visit * Reason Comments Medication Refill Encounter Details Date Type Department Care Team (Late st Contact Info) Description 08/18/2023 Refill [facility] Tyree UGARTE [address] [facility] [place] [address] Marybel Fung MD [address] [facility] [place] [address] Multiple myeloma in relapse (HCC) Allergies Active [...] Use up to 16 weeks Given by [facility] general surgery 12 Packet 3 1 [...] 2 Active Torsemide 20 MG Oral Tablet (Demadex) [...] Information Patient taking differently: 50 mcg Oral [id number], Reported on 04/14/2023 Pantoprazole Sodium 20 MG Oral Tablet Delayed Release (Protonix)Indicati ons:Gastroesophage al reflux disease without esophagitis TAKE ONE TABLET BY MOUTH EVERY DAY IN THE MORNING 90 Tablet 2 3 12/26/19 24 Active Escitalopram Oxalate 10 MG Oral Tablet (Lexapro)Indicatio ns:Lambda light chain myeloma (HCC) TAKE ONE TABLET BY MOUTH IN THE MORNING. 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 30 Tablet 5 3 Active Repatha SureClick 140 MG/ML Subcutaneous Solution [...] evening. 15 mL 3 3 Active Pen [place] 32G X 4 MM Use as directed. [...] needed for Pain, Breakthrough. 30 Tablet 0 3 Active oxyCODONE HCl 5 MG Oral Tablet (Oxy IR)Indications:Mul tiple myeloma in relapse (HCC) Take 1 Tablet by mouth every 4 hours as needed for Pain, Breakthrough. 30 Tablet 0 3 08/18/20 23 Discontinu ed(Refill) documented as of this [...] myeloma without remission 06/14/2014 Overview: Dr Rodriges/ [facility] ADVANCE DIRECTIVE INFORMATION 10/13/2006 [...] encounter Miscellaneous Notes * Telephone Encounter - Ana Amaya MD - 08/18/2023 5:58 PM ESTSigned Prescriptions: Disp Refills oxyCODONE HCl 5 MG Oral Tablet (Oxy IR) 30 Tab*0 Sig: Take 1 Tablet by mouth every 4 hours as needed for Pain, Breakthrough. Authorizing Provider: ANA AMAYA * Telephone Encounter - Alcira Duarte RN - 08/18/2023 4:03 PM ESTPending Prescriptions: Disp Refills oxyCODONE HCl 5 MG Oral Tablet (Oxy IR) 30 Tab*0 Sig: Take 1 Tablet by mouth every 4 hours as needed for Pain, Breakthrough. * Telephone Encounter - Dayan Luis CPhT - 08/18/2023 11:36 AM EST Patient is up to date for office visits. Pending Prescriptions: Disp Refills oxyCODONE HCl 5 MG Oral Tablet (Oxy IR) 30 Tab*0 Sig: Take 1 Tablet by mouth every 4 hours as needed for Pain, Breakthrough. Last Visit: 06/22/2023 (in office), 05/05/2023 (telemedicine) Next Visit: Visit date not found If no future appointments scheduled, and last appointment is greater than a year ago, please schedule patient for a follow-up appointment Last date the medication was ordered: 06/03/2023 Pharmacy: [facility] Is this request for a controlled substance?Yes, and Urine Drug Screen was NOT completed Urine Drug Screen:No results found. However, due to the size of the patient record, not all encounters were searched. Please check Results Review for a complete set of results. Patient Phone Numbers Labs: Lab Results Component Value Date/Time CREAT 1.03 08/16/2023 12:00 AM CREAT 1.4 (H) 10/03/2020 07:44 AM POTASSIUM 4.3 08/16/2023 12:00 AM POTASSIUM 3.9 10/03/2020 07:44 AM TSH 2.22 07/25/2023 09:43 AM TSH 1.93 07/04/2020 07:47 AM LDLCALC 22 01/31/2023 08:42 AM LDLCALC 149 (H) 12/11/2019 09:47 AM LDLDIRECT 33 07/06/2023 08:48 AM LDLDIRECT 99 07/04/2020 07:47 AM ALT 19 07/25/2023 09:43 AM ALT 32 10/03/2020 07:44 AM HGBA1C 9.3 (H) 07/06/2023 08:53 AM HGBA1C 7.8 (H) 07/04/2020 07:47 AM documented in this encounter Plan of Treatment Upcoming Encounters Date Type Department Care Team (Late st Contact Info) Description 08/22/2023 5:10 PM EST Anticoagulation Pharmacy, [address] [place] [address] [place] [address] 08/22/2023 6:00 PM EST Office Visit Family Medicine [address] [place] [phone] Jaime Garcia MD [address] [place] [address] [place] [phone] 08/24/2023 2:00 PM EST Office Visit [facility] GWTyree Jordan [address] [place] [address] Thierno Patel PA-C [address] [place] [address] 09/13/2023 9:00 AM EST Office Visit Cardiology, [facility] [address] [facility] [place] [address] Beth Salter CRNP [address] [facility] [place] [phone] 11/23/2023 9:40 AM EDT Office Visit Nephrology, [facility] [address] [facility] [place] [address] Armando Cook MD [address] [place] [address] Health Maintenance Due Date Last Done Comments [...] Additional history exists CKD HGB USE SMARTSET 17711 08/16/202408/16, 07/25/2023, 07/25/2023, Additional history exists CKD PHOS USE SMARTSET 28862 08/16/202401/2023, 07/25/2023, 07/06/2023, Additional history exists DTaP,Tdap,and [...] this encounter Medical Devices Implanted Type Area Stem Processing Machine Operator Device Identifier Shelf Expiration Date Model / Serial / Lot Port Power Mri W/8fr Cath - [id number] Implanted:Qty: 1 on 09/26/2020 by Simone Michelle MD at OR [facility] Right: Chest CR BARD : PERIPHERAL VASCULAR 10/12/2021 [id number] / / [id number] Description:right IJ Lens Intraoc 19.0 - [id number] - [id number] Implanted:Qty: 1 on 02/03/2021 by Chris Sexton MD at OR [facility] Right: Eye BAUSCH [employer] LOMB 09/11/2025 [id number] / [id number] / Lens Intraoc 19.0 - [id number] - [id number] Implanted:Qty: 1 on 02/24/2021 by Chris Sexton MD at OR [facility] Left: Eye BAUSCH [employer] LOMB 10/12/2025 [id number] / [id number] / [id number] System Urolift - [id number] Implanted:Qty: 3 on 03/17/2023 by Devyn Paniagua MD at OR [facility] N/A: Urethra [employer] 11/03/2023 [id number] / / [id number] documented as of this encounter Visit Diagnoses Diagnosis Multiple myeloma in relapse (HCC) Multiple myeloma, [...] and were consensually agreed upon. Care Teams Diploma Medical Assistant Relationship Specialty Start Date End Date Jaime Garcia MD [address] [place] [address] [place] [phone] PCP - General Family Medicine 10/15/20 documented as of this encounter
--- OUTSIDE RECORDS SUMMARY | 2023-08-26 22:59 | External Medical Summary | Summary of Care ---
Author Name Unknown Organization [facility] Address [address] [place] [address] Phone [phone] Care Team Providers Care Open Soaper Tender Name Role Phone Jaime Garcia MD Primary Care Provide r Reason for Visit * Reason Onset Date Comments [facility]: Maintenance 08/19/2023 Encounter Details Date Type Department Care Team (Late st Contact Info) Description 08/19/2023 4:15 PM EST Scheduled Telephone [facility], [facility] [address] [facility] [place] [address] Coordinator, [facility] [address] [facility] [place] [address] Allergies Active Allergy Reactions Criticality Noted Date Comments Atorvastatin Muscle pain High 03/30/2019 Ezetimibe Muscle pain High 01/25/2020 documented as of this encounter (statuses as of 08/19/2023) Medications Medication Sig Dispensed Refills Start Date [...] Use up to 16 weeks Given by [facility] general surgery 12 Packet 3 01/19/2021 Active OneTouch Ultra Blue In Vitro Strip (Glucose Blood)Indications: Type 2 diabetes mellitus with hemoglobin A1c goal of less than 7.0% ([facility]) Use as directed daily. Test once daily DxE11.9 100 Strip 5 03/02/2021 Active LancetsIndications :Type 2 diabetes mellitus with hemoglobin A1c goal of less than 7.0% ([facility]) Test once daily DxE11.9. 100 [...] Information Patient taking differently: 50 mcg Oral [id number], Reported on 04/14/2023 Pantoprazole Sodium 20 MG [...] hemoglobin A1c goal of less than 7.0% ([facility]) Take 2 Tablets by mouth in the morning. 180 Tablet 1 07/11/2023 Active Insulin Glargine Solostar 100 UNIT/ML Subcutaneous Solution Pen-injector (Lantus SoloStar) Inject 10 Units under the skin every evening. 15 mL 3 07/19/2023 Active Pen [place] 32G X 4 MM Use as directed. [...] breakthrough pain. 30 Tablet 0 08/18/2023 Active documented as of this encounter (statuses as of 08/19/2023) Active Problems Problem Noted Date Diagnosed Date [...] without remission 06/14/2014 Overview: Dr Rodriges/ [facility] ADVANCE DIRECTIVE INFORMATION 10/13/2006 Overview: No, Advance Directive brochure offered , patient declined. Degeneration of lumbosacral intervertebral disc 02/19/2005 documented as of this encounter (statuses as of 08/19/2023) Resolved Problems Problem Noted Date Diagnosed Date [...] as of this encounter (statuses as of 08/19/2023) Immunizations Name Administration Dates Next Due COVID-19, [...] encounter Miscellaneous Notes * Telephone Encounter - Li Alamo RN - 08/19/2023 12:00 PM EST Call to patient to remind him he has a home visit around 2 pm. Call to . Left message to call Carolyn with phone number. Li Alamo. BOBBY [facility] RN [phone] documented in this encounter Plan of Treatment Upcoming Encounters Date Type Department Care Team (Late st Contact Info) Description 08/20/2023 2:00 PM EST [facility] Visit [facility], [facility] [address] [facility] [place] [address] [facility], Nurse [facility] [address] [facility] [place] [address] 08/22/2023 5:10 PM EST Anticoagulation Pharmacy, [address] [place] [address] [place] [address] 08/22/2023 6:00 PM EST Office Visit Family Medicine [address] [place] [phone] Jaime Garcia MD [address] [place] [address] [place] [address] 08/24/2023 2:00 PM EST Office [facility] Tyree UGARTE [address] [facility] [place] [address] Thierno Patel PA-C [address] [facility] [place] [address] 09/13/2023 9:00 AM EST Office Visit Cardiology, [facility] [address] [facility] [place] [address] Beth Salter CRNP [address] [place] [address] [place] [phone] 11/23/2023 9:40 AM EDT Office Visit Nephrology, [facility] [address] [place] [address] Armando Cook MD 200 [facility] [place] [address] Health Maintenance Due Date Last Done Comments [...] or PCV20) 05/22/2024 05/13/2020, 05/22/2019 Albumin/Creatinine Ratio 06/22/20242 023, 05/27/2023, 03/25/2023, Additional history exists Diabetic Eye Exam 07/11/2024 07/11/2023, , 06/29/2021, Additional history exists TSH 07/25/2024 07/25/2023, 03/12, 01/31/2023, Additional history exists CKD HGB USE SMARTSET 02163 08/16/202408/16, 07/25/2023, 07/25/2023, Additional history exists CKD PHOS USE SMARTSET 63781 08/16/2024 1201/2023, 07/25/2023, 07/06/2023, Additional history exists [...] this encounter Medical Devices Implanted Type Area Electrotype Servicer Device Identifier Shelf Expiration Date Model / Serial / Lot Port Power Mri W/8fr Cath - [id number] Implanted:Qty: 1 on 09/26/2020 by Simone Michelle MD at OR [facility] Right: Chest CR BARD : PERIPHERAL VASCULAR 10/12/2021 [id number] / / [id number] Description:right IJ Lens Intraoc 19.0 - [id number] - [id number] Implanted:Qty: 1 on 02/03/2021 by Chris Sexton MD at OR [facility] Right: Eye BAUSCH [employer] LOMB 09/11/2025 [id number] / [id number] / Lens Intraoc 19.0 - [id number] - [id number] Implanted:Qty: 1 on 02/24/2021 by Chris Sexton MD at OR [facility] Left: Eye BAUSCH & LOMB 10/12/2025 [id number] / [id number] / [id number] System Urolift - [id number] Implanted:Qty: 3 on 03/17/2023 by Devyn Paniagua MD at OR [facility] N/A: Urethra [employer] 11/03/2023 MZ396-8 / / [id number] documented as of this encounter Advance Directives [...] and were consensually agreed upon. Care Teams Open Soaper Tender Relationship Specialty Start Date End Date Jaime Garcia MD [address] [place] [address] [place] [phone] PCP - General Family Medicine 10/15/20 documented as of this encounter
--- OUTSIDE RECORDS SUMMARY | 2023-08-26 22:59 | External Medical Summary | Summary of Care ---
Author Name Unknown Organization [facility] Address [address] [place] [address] Phone [phone] Care Team Providers Care Code Official Name Role Phone Jaime Garcia MD Primary Care Provide r Reason for Visit * Reason Comments Dosage Adjustment Via Phone (anticoag Cl inic) Encounter Details Date Type Department Care Team (Latest Contact Info) Description 08/18/2023 5:10 PM EST Anticoagulation Pharmacy, [address] [place] [address] [place] [address] PAF (paroxysmal atrial fibrillation) (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) Take 2 Tablets by mouth in the morning. 180 Tablet 1 07/11/2023 Active Insulin Glargine Solostar 100 UNIT/ML Subcutaneous Solution Pen-injector (Lantus SoloStar) Inject 10 Units under the skin every evening. 15 mL 3 07/19/2023 Active Pen [place] 32G X 4 MM Use as directed. [...] without remission 06/14/2014 Overview: Dr Rodriges/ [facility] ADVANCE DIRECTIVE INFORMATION 10/13/2006 Overview: No, [...] this encounter Progress Notes * Barbara Jiménez, [facility] - 08/18/2023 8:17 AM EST Patient continues to remain admitted at [facility] in PCU. Per [facility] chart review, bridging to warfarin --> heparin. INR therapeutic this AM at 2.5. Lookingtowards discharge to home w/ home health/[facility]. Will continue to f/u on discharge. Barbara Jiménez RP, PharmD Clinical Pharmacist - Billing And Insurance Coordinator Medication Therapy [facility] 08/18/2023, 8:19 AM Ph.[phone] Electronically signed by Barbara Jiménez [facility] at 08/18/2023 8:21 AM EST documented in this encounter Plan of Treatment Upcoming Encounters Date Type Department Care Team (Late st Contact Info) Description 08/22/2023 5:10 PM EST Anticoagulation Pharmacy, [address] [place] [address] [place] [address] 09/13/2023 9:00 AM EST Office Visit Cardiology, [facility] 132 [facility] [place] [address] [facility] CRNP [address] [facility] [place] [phone] 11/23/2023 9:40 AM EDT Office Visit Nephrology, [place] [place] [address] [facility] [place] [address] Armando Cook MD 200 [facility] [place] [address] Health Maintenance Due Date Last Done Comments [...] Additional history exists CKD HGB USE SMARTSET 59890 08/16/202408/16, 07/25/2023, 07/25/2023, Additional history exists CKD PHOS USE SMARTSET 93199 08/16/2024 1201/2023, 07/25/2023, 07/06/2023, Additional history exists [...] this encounter Medical Devices Implanted Type Area Mail Processor Device Identifier Shelf Expiration Date Model / Serial / Lot Port Power Mri W/8fr Cath - [id number] Implanted:Qty: 1 on 09/26/2020 by Simone Michelle MD at OR [facility] Right: Chest CR BARD : PERIPHERAL VASCULAR 10/12/2021 [id number] / / [id number] Description:right IJ Lens Intraoc 19.0 - [id number] - [id number] Implanted:Qty: 1 on 02/03/2021 by Chris Sexton MD at OR [facility] Right: Eye BAUSCH & LOMB 09/11/2025 [id number] / [id number] / Lens Intraoc 19.0 - [id number] - [id number] Implanted:Qty: 1 on 02/24/2021 by Chris Sexton MD at OR [facility] Left: Eye BAUSCH & LOMB 10/12/2025 [id number] / [id number] System Urolift - [id number] Implanted:Qty: 3 on 03/17/2023 by Devyn Paniagua MD at OR [facility] N/A: Urethra [employer] 11/03/2023 TB966-7 / / [id number] documented as of this encounter Visit Diagnoses [...] and were consensually agreed upon. Care Teams Code Official Relationship Specialty Start Date End Date Jaime Garcia MD NPI: [id number] [place] [address] [place] [phone] PCP - General Family Medicine 10/15/20 documented as of this encounter
--- OUTSIDE RECORDS SUMMARY | 2023-08-26 22:59 | External Medical Summary | Summary of Care ---
Author Name Unknown Organization [facility] Address [address] [place] [address] Phone [phone] Care Team Providers Care Control Board Operator Name Role Phone Jaime Garcia MD Primary Care Provide r Encounter Details Date Type Department Care Team (Late st Contact Info) Description 08/17/2023 Orders Only Family Medicine [address] [place] [phone] Jaime Garcia MD [address] [place] [address] [place] [address] Allergies Active Allergy Reactions Criticality Noted Date Comments Atorvastatin Muscle pain High 03/30/2019 Ezetimibe Muscle pain High 01/25/2020 documented as of this encounter (statuses as of 08/17/2023) Medications Medication Sig Dispensed Refills Start Date [...] Use up to 16 weeks Given by [facility] general surgery 12 Packet 3 [...] Information Patient taking differently: 50 mcg Oral [id number], Reported on 04/14/2023 Pantoprazole Sodium 20 MG [...] ons:Atrial fibrillation, unspecified type (HCC),Anticoagulat ion management encounter,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 15 mL 3 07/19/2023 Active Pen [place] 32G X 4 MM Use as directed. [...] as of this encounter (statuses as of 08/17/2023) Active Problems Problem Noted Date Diagnosed Date [...] myeloma without remission 06/14/2014 Overview: Dr Rodriges/ [facility] ADVANCE DIRECTIVE INFORMATION 10/13/2006 Overview: No, Advance Directive brochure offered , patient declined. Degeneration of lumbosacral intervertebral disc 02/19/2005 documented as of this encounter (statuses as of 08/17/2023) Resolved Problems Problem Noted Date Diagnosed Date [...] as of this encounter (statuses as of 08/17/2023) Immunizations Name Administration Dates Next Due COVID-19, [...] Description 08/18/2023 5:10 PM EST Anticoagulation Pharmacy, [address] [place] [address] [place] [address] 09/13/2023 9:00 AM EST Office Visit Cardiology, [facility] [address] [place] [address] Beth Salter CRNP [address] [place] [phone] 11/23/2023 9:40 AM EDT [facility] [address] [facility] [place] [address] Armando Cook MD [address] [place] [address] Health Maintenance Due Date Last Done Comments [...] 08/0 11/2022, 03/29/2023, Additional history exists GFR 01/23/2024 08/16/2023, 1111/2022, 06/27/2023, Additional history exists Pneumococcal Vaccine: Pediatrics (0 to 5 Years) and At-Risk Patients (6 to 64 Years) (3 - PPSV23 or PCV20) 05/22/2024 05/13/2020, 05/22/2019 Albumin/Creatinine Ratio 06/22/2024 023, 05/27/2023, 03/25/2023, Additional history exists Diabetic Eye Exam 07/11/2024 07/11/2023, , 06/29/2021, Additional history exists CKD HGB USE SMARTSET 44343 07/25/202408/16, 07/25/2023, 07/25/2023, Additional history exists CKD PHOS USE SMARTSET 88211 07/25/2024 120 01/2023, 07/25/2023, 07/06/2023, Additional history exists TSH 07/25/2024 07/25/2023, 03/12, [...] this encounter Medical Devices Implanted Type Area Production Engineer Track Device Identifier Shelf Expiration Date Model / Serial / Lot Port Power Mri W/8fr Cath - [id number] Implanted:Qty: 1 on 09/26/2020 by Simone Michelle MD at OR [facility] Right: Chest CR BARD : PERIPHERAL VASCULAR 10/12/2021 [id number] / / [id number] Description:right IJ Lens Intraoc 19.0 - [id number] - [id number] Implanted:Qty: 1 on 02/03/2021 by Chris Sexton MD at OR [facility] Right: Eye [employer] LOMB 09/11/2025 [id number] / [id number] / Lens Intraoc 19.0 - [id number] - [id number] Implanted:Qty: 1 on 02/24/2021 by Chris Sexton MD at OR [facility] Left: Eye BAUSCH & LOMB 10/12/2025 [id number] / [id number] / [id number] System Urolift - [id number] Implanted:Qty: 3 on 03/17/2023 by Devyn Paniagua MD at OR [facility] N/A: Urethra [employer] 11/03/2023 [id number] / / [id number] documented as of this encounter Procedures Procedure Name Priority Date/Time Associated Diagnosis Comments CHEMISTRY-OUTSIDE Routine 08/16/2023 documented in this encounter Results * (ABNORMAL) CHEMISTRY-OUTSIDE (08/16/2023) Not all results display below - see scan for full detail OUTSIDE LAB (SEE SCANNED REPORT) Comment:SCAN INCL: INPT LABS : CBCD,BMP, PHOS, MG, PT,INR CREATININE-OUTSID E LAB 1.03 0.6 - 1.4 MG/DL OUTSIDE LAB (SEE SCANNED REPORT) EGFR-OUTSIDE LAB 82.5 OUT SIDE LAB (SEE SCANNED REPORT) POTASSIUM-OUTSIDE LAB 4.3 3.5 - 5.1 MMOL/L OUTSIDE LAB (SEE SCANNED REPORT) GLUCOSE-OUTSIDE LAB 81 70 - 99 MG/DL OUTSIDE LAB (SEE SCANNED REPORT) HOURS FASTING OUTSID E LAB (SEE SCANNED REPORT) TRIGLYCERIDES-OUT SIDE LAB OUTSIDE LAB (SEE SCANNED REPORT) CHOLESTEROL-OUTSI DE LAB OUTSIDE LAB (SEE SCANNED REPORT) HDL-OUTSIDE LAB OUTS [facility] (SEE SCANNED REPORT) CHOL/HDL RATIO-OUTSIDE LAB OUTSIDE LA B (SEE SCANNED REPORT) LDL (CALCULATED)-OUTS [facility] LAB OUTSIDE LAB (SEE SCANNED REPORT) LDL (DIRECT MEASURE)-OUTSIDE LAB OUTSIDE LAB (SEE SCANNED REPORT) HEMOGLOBIN, B4B-RLLSQAP LAB OUTSIDE LAB (SEE SCANNED REPORT) PHOSPHORUS-OUTSID E LAB 2.0(A) 2.5 - 4.9 MG/DL OUTSIDE LAB (SEE SCANNED REPORT) PTH-OUTSIDE LAB OUTS [facility] LAB (SEE SCANNED REPORT) MICROALBUMIN RATIO-OUTSIDE LAB OUTSIDE LA B (SEE SCANNED REPORT) PROTEIN, UA-OUTSIDE LAB OUTSIDE LAB (SEE SCANNED REPORT) HEMOGLOBIN-OUTSID E LAB 11.8(A) 14.0 - 18.0 G/DL OUTSIDE LAB (SEE SCANNED REPORT) 08/16/2023 History Per Patient LABORATORY OUTSIDE LAB (SEE SCANNED REPORT) documented in this encounter Advance Directives Latest [...] and were consensually agreed upon. Care Teams Control Board Operator Relationship Specialty Start Date End Date Jaime Garcia MD [address] [place] [address] [place] [phone] PCP - General Family Medicine 10/15/20 documented as of this encounter
--- OUTSIDE RECORDS SUMMARY | 2023-08-26 22:59 | External Medical Summary | Summary of Care ---
Author Name Unknown Organization [facility] Address [address] [place] [address] Phone [phone] Care Team Providers Care Community Outreach Advocate Name Role Phone Jaime aGrcia MD Primary Care Provide r Reason for Referral * Evaluate & Treat - Unlimited Visits (Within 3 days (urgent)) - Authorized Specialty Diagnoses / Procedures Referred By Darin lui Referred To Contact HOME CARE / Home Care Diagnoses Generalized weakness Jaime Garcia MD [address] [place] [address] [place] [id number] Referral ID Status Reason Start Date Expiration Date Visits Requested Visits Authorized [id number] Authorized Specialty Services Required 3 999 999 Question Answer Referral Priority Within 3 days (urgent) Where should this appointment be scheduled? [place] Comments Documentation of Kvmu-og-Lveq Encounter Addendum Patient Name: Jerardo Soto Don Haq I certify that this patient is under my care and that I, or a nurse practitioner or physician's dam tender assistant working with me, had a uaky-aa-buds encounter that meets the physician jzab-rv-pyme encounter requirements with this patient on: 08/22/23 The encounter with the patient was in whole, or in part, for the following medical condition, which is the primary reason for home health care (List medical condition): Gait dysfunction I certify that, based on my findings, the following services are medically necessary home health services: Physical Therapy and OT To provide the following care/treatments: (All hospitalists not following the patient after discharge should complete this section): PT for gait training and strengthening. OT for upper body strengthening and ADL training. Primary Care Physician to follow home care plan of care after discharge: Dr Jose DODGE. My clinical findings support the need for the above services because: Patient with increased weakness following illness. Requires additional assistance and time to complete ADLs safely. Was independent prior to illness. Further, I certify that my clinical findings support that this patient is homebound (i.e. Absences from home require considerable and taxing effort and are for medical reasons or hinduism services or infrequently or of short duration when for other reason) because: Pt unable to leave home unassisted due to weakness, high risk for falls. Physician Signature: Date of Signature: Physician Printed Name: Jaime Garcia MD Reason for Visit * Reason Onset Date Comments Order Request 08/20/2023 Encounter Details Date Type Department Care Team (Late st Contact Info) Description 08/20/2023 Telephone [facility] [address] [place] [address] Rufina Lucia RN [address] [place] [phone] Order Request Allergies Active Allergy Reactions Criticality [...] hemoglobin A1c goal of less than 7.0% ([facility]) Use as directed daily. Test once daily DxE11.9 100 Strip 5 03/02/2021 Active LancetsIndications :Type 2 diabetes mellitus with hemoglobin A1c goal of less than 7.0% (HCC) Test once daily DxE11.9. 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 180 Tablet 1 07/11/2023 Active Insulin Glargine Solostar 100 UNIT/ML Subcutaneous Solution Pen-injector (Lantus SoloStar) Inject 10 Units under the skin every evening. 15 mL 3 07/19/2023 Active Pen [place] 32G X 4 MM Use as directed. [...] myeloma without remission 06/14/2014 Overview: Dr Rodriges/ [facility] ADVANCE DIRECTIVE INFORMATION 10/13/2006 Overview: No, Advance [...] Telephone Encounter - Jaime Garcia MD - 08/22/2023 10:22 AM EST Order placed - thanks * Telephone Encounter - Rufina Lucia RN - 08/20/2023 3:27 PM EST Pt was seen post dc from [facility] on 08/20/23 where he was admitted with salmonella poisoning. Pt has follow up with PCP 08/22/23. Requesting orders for home PT,OT referrals due to ongoing leg weakness and high risk for falls. Can route back to primary CM, Sulma Seth RN once signed. Thank you, Rufina Lucia RN 08/20/2023 3:34 PM documented in this encounter Plan of Treatment Upcoming Encounters Date Type Department Care Team (Late st Contact Info) Description 08/22/2023 5:10 PM EST Anticoagulation Pharmacy, [address] [place] [phone] [place] [address] PAF (paroxysmal atrial fibrillation) ([facility])* 08/22/2023 6:00 PM EST Office Visit Family Medicine [address] [place] [phone] Jaime Garcia MD [address] [place] [address] [place] [phone] 08/23/2023 7:00 AM EST Anticoagulation Pharmacy, [address] [place] [address] [place] [address] 09/01/2023 12:30 PM EST [facility], [facility] [address] [facility] [place] [address] Sulma Seth RN 132 [facility] [place] [address] 09/13/2023 9:00 AM EST Office Visit Cardiology, [facility] [address] [facility] [place] [address] Beth Salter CRNP [address] [place] [phone] 11/23/2023 9:40 AM EDT Office Visit Nephrology, [facility] [address] [facility] [place] [address] Armando Cook MD [address] [facility] [place] [address] Scheduled Referrals Name Type Priority Associated Diagnoses Orde r Schedule HOME HEALTH REFERRAL OP Referral Within 3 days (urgent) Generalized weakness Ordered: 08/22/2023 Health Maintenance Due Date Last Done Comments [...] Additional history exists CKD HGB USE SMARTSET 29672 08/16/202408/16, 07/25/2023, 07/25/2023, Additional history exists CKD PHOS USE SMARTSET 60509 08/16/202401/2023, 07/25/2023, 07/06/2023, Additional history exists DTaP,Tdap,and [...] this encounter Medical Devices Implanted Type Area Chairman And Chief Executive Officer Device Identifier Shelf Expiration Date Model / Serial / Lot Port Power Mri W/8fr Cath - [id number] Implanted:Qty: 1 on 09/26/2020 by Simone Michelle MD at OR [facility] Right: Chest CR BARD : PERIPHERAL VASCULAR 10/12/2021 [id number] / / [id number] Description:right IJ Lens Intraoc 19.0 - [id number] - [id number] Implanted:Qty: 1 on 02/03/2021 by Chris Sexton MD at OR [facility] Right: Eye BAUSCH [employer] LOMB 09/11/2025 [id number] / [id number] / Lens Intraoc 19.0 - [id number] - [id number] Implanted:Qty: 1 on 02/24/2021 by Chris Sexton MD at OR [facility] Left: Eye BAUSCH [employer] LOMB 10/12/2025 [id number] / [id number] / [id number] System Urolift - [id number] Implanted:Qty: 3 on 03/17/2023 by Devyn Paniagua MD at OR [facility] N/A: Urethra [employer] 11/03/2023 [id number] / / [id number] documented as of this encounter Visit Diagnoses Diagnosis Generalized weakness- Primary Other malaise and fatigue PAF (paroxysmal atrial fibrillation) (HCC)- Primary Atrial [...] and were consensually agreed upon. Care Teams Community Outreach Advocate Relationship Specialty Start Date End Date Jaime Garcia MD [address] [place] [address] [place] [phone] PCP - General Family Medicine 10/15/20 documented as of this encounter
--- OUTSIDE RECORDS SUMMARY | 2023-08-26 22:59 | External Medical Summary ---
Author Name Unknown Address Unknown Organization K01:[facility] [address] [place] [address] Laboratory Report Ordering Provider Test Date Status BARB DUVALL 08/22/2023 16:22:59 Jackie l Observation Date Value Abnormality Reference (Units ) Status BUN 08/22/2023 16:22:59 22 Above high normal 6-20 (mg/dL) Final Creatinine 08/22/2023 16:22:59 2.0 Above high normal 0.6-1.2 (mg/dL) Final Glomerular filtration rate/1.73 sq M.predicted [Volume Rate/Area] in Serum, Plasma or Blood by Creatinine-based formula (CKD-EPI) 08/22/2023 16:22:59 40 Below low normal >=60 (mL/min) Final eGFR is calculated based on the CKD-EPI 2020 equation SODIUM 08/22/2023 16:22:59 134 Below low normal 135 -146 (mmol/L) Final Potassium 08/22/2023 16:22:59 5.1 3.5-5.1 (m mol/L) Final Cl 08/22/2023 16:22:59 94 Below low normal 98- 107 (mmol/L) Final CO2 08/22/2023 16:22:59 23 22-32 (mmo l/L) Final Anion gap 08/22/2023 16:22:59 17 Above high normal 7- 15 (mmol/L) Final Glucose 08/22/2023 16:22:59 110 70-120 (mg /dL) Final Calcium 08/22/2023 16:22:59 11.0 Above high normal 8. 4-10.2 (mg/dL) Final Performing Location [facility] [address] [place] [address]
--- OUTSIDE RECORDS SUMMARY | 2023-08-26 23:00 | External Medical Summary | Summary of Care ---
Author Name Unknown Organization [facility] Address [address] [place] [address] Phone [phone] Care Team Providers Care Third Rail Installer Name Role Phone Jaime Garcia MD Primary Care Provide r Reason for Visit * Reason Onset Date Comments [facility]: Maintenance 08/16/2023 Encounter Details Date Type Department Care Team (Late st Contact Info) Description 08/16/2023 10:00 AM EST Scheduled Telephone [facility], [facility] [address] [facility] [place] [address] [facility] Nurse Triage [facility] [place] [address] Allergies Active Allergy Reactions Criticality Noted Date [...] Use up to 16 weeks Given by [facility] general surgery 12 Packet 3 01/19/2021 Active OneTouch Ultra Blue In Vitro Strip (Glucose Blood)Indications: Type 2 diabetes mellitus with hemoglobin A1c goal of less than 7.0% ([facility]) Use as directed daily. Test once daily DxE11.9 100 Strip 5 03/02/2021 Active LancetsIndications :Type 2 diabetes mellitus with hemoglobin A1c goal of less than 7.0% ([facility]) Test once daily DxE11.9. 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 180 Tablet 1 07/11/2023 Active Insulin Glargine Solostar 100 UNIT/ML Subcutaneous Solution Pen-injector (Lantus SoloStar) Inject 10 Units under the skin every evening. 15 mL 3 07/19/2023 Active Pen [place] 32G X 4 MM Use as directed. [...] myeloma without remission 06/14/2014 Overview: Dr Rodriges/ [facility] ADVANCE DIRECTIVE INFORMATION 10/13/2006 Overview: [...] encounter Miscellaneous Notes * Telephone Encounter - Porsha Reyes RN - 08/16/2023 11:40 AM EST [facility] Material Worker Monthly Visit Date: 08/16/2023 Time: 11:41 AM Name: Jerardo Ochoa Jr. : 1970 Monthly follow up call to Jerardo, no call needed as patient is still inpatient at [facility], Rm. 204 Porsha Reyes RN 08/16/2023 documented in this encounter Plan of Treatment Upcoming Encounters Date Type Department Care Team (Late st Contact Info) Description 08/17/2023 10:40 AM EST Office Visit Family Medicine [address] [place] [phone] Umu Mcdermott PA-C [address] [place] [address] [place] [phone] 08/19/2023 6:10 PM EST Anticoagulation Pharmacy, [address] [place] [address] [place] [address] 09/08/2023 6:10 PM EST Pharmacy Pharmacy, [address] [place] [address] [place] [address] 09/13/2023 9:00 AM EST Office Visit Cardiology, [facility] [address] [facility] [place] [address] Beth Salter CRNP [address] [place] [address] [place] [phone] 11/23/2023 9:40 AM EDT Office Visit Nephrology, [place] [facility] [address] [place] [address] Armando Cook MD [address] [place] [address] Health Maintenance Due Date Last Done Comments [...] 11/2022, 03/29/2023, Additional history exists GFR 01/23/2024 07/25/2023, 06/12, 06/22/2023, Additional history exists Pneumococcal Vaccine: Pediatrics (0 to 5 Years) and At-Risk Patients (6 to 64 Years) (3 - PPSV23 or PCV20) 05/22/2024 05/13/2020, 05/22/2019 Albumin/Creatinine Ratio 06/22/2024 023, 05/27/2023, 03/25/2023, Additional history exists Diabetic Eye Exam 07/11/2024 07/11/2023, , 06/29/2021, Additional history exists CKD HGB USE SMARTSET 49983 07/25/202407/25, 07/25/2023, 06/27/2023, Additional history exists CKD PHOS USE SMARTSET 25266 07/25/202407/13, 07/06/2023, 06/27/2023, Additional history exists TSH [...] this encounter Medical Devices Implanted Type Area Engineering Operations Leader Device Identifier Shelf Expiration Date Model / Serial / Lot Port Power Mri W/8fr Cath - [id number] Implanted:Qty: 1 on 09/26/2020 by Simone Michelle MD at OR [facility] Right: Chest CR BARD : PERIPHERAL VASCULAR 10/12/2021 [id number] / / [id number] Description:right IJ Lens Intraoc 19.0 - [id number] - [id number] Implanted:Qty: 1 on 02/03/2021 by Chris Sexton MD at OR [facility] Right: Eye [employer]OMB 09/11/2025 [id number] / [id number] / Lens Intraoc 19.0 - [id number] - [id number] Implanted:Qty: 1 on 02/24/2021 by Chris Sexton MD at OR [facility] Left: Eye BAUSCH [employer] LOMB 10/12/2025 [id number] / [id number] / [id number] System Urolift - [id number] Implanted:Qty: 3 on 03/17/2023 by Devyn Paniagua MD at OR [facility] N/A: Urethra [employer] 11/03/2023 GT420-5 / / [id number] documented as of this encounter Advance Directives [...] and were consensually agreed upon. Care Teams Third Rail Installer Relationship Specialty Start Date End Date Jaime Garcia MD [address] [place] [address] [place] [phone] PCP - General Family Medicine 10/15/20 documented as of this encounter
[2023-08-27 04:43] LABS: Basophils # (auto) 0.04 K/uL (0.00-0.20); Basophils % (auto) 0.6 %; Eosinophils # (auto) 0.24 K/uL (0.00-0.50); Eosinophils % (auto) 3.6 %; Hematocrit (blood only) 33.4 % (42.0-52.0); Immature Granulocytes # (auto) 0.14 K/uL (0.01-0.20); Immature Granulocytes % (auto) 2.1 %; Lymphocytes # (auto) 0.67 K/uL (1.20-3.40); Mean Corpuscular Hgb Conc 32.9 g/dL (32.0-36.0); Mean Corpuscular Volume 97.1 fL (80.0-100.0); Mean Platelet Volume 10.3 fL (9.4-12.4); Monocytes # (auto) 1.09 K/uL (0.11-0.59); Monocytes % (auto) 16.2 %; Neutrophils # (auto) 4.55 K/uL (1.40-6.50); Neutrophils % (auto) 67.5 %; Nucleated RBC # (auto) 0.03 K/uL (0.00-0.12); Nucleated RBC % (auto) 0.4 %; Platelet Count 379 K/uL (130-400); RDW Coefficient of Variation 15.4 % (11.5-14.5); RDW Standard Deviation 55.4 fL (36.4-46.3); Red Blood Count 3.44 M/uL (4.70-6.10); White Blood Count 6.73 K/ul (4.8-10.8)
[2023-08-27 04:47] LABS: BUN Creatinine Ratio 16.3 (10-20); Calcium 10.2 mg/dl (8.6-10.3); Creatinine Clr Calc Pharmacy 51.7 ml/min; Est GFR (African American) 56.2 ml/min; Est GFR (Non-African American) 48.5 ml/min; Magnesium 1.9 mg/dl (1.7-2.4); Potassium 4.7 mmol/L (3.5-5.1)
[2023-08-27 05:45] LABS: INR 1.2 (0.9-1.1); Prothrombin Time 13.5 Seconds (9.0-12.0)
[2023-08-27] MEDS: HEPARIN SOD 5,000 UNIT/0.5 ML VIAL SQ SCH ×2 (06:25→14:22)
[2023-08-27] MEDS: LEVOTHYROXINE SODIUM 50 MCG TABLET PO SCH (06:25)
[2023-08-27 07:11] LABS: Estimated Average Glucose 148 mg/dl; Hemoglobin A1C 6.8 % (4.5-5.6)
--- NOTE | 2023-08-27 07:50 | Electrocardiogram Report ---
Test Reason : Blood Pressure : / mmHG Vent. Rate : 076 BPM Atrial Rate : 076 BPM P-R Int : 180 ms QRS Dur : 092 ms QT Int : 368 ms P-R-T Axes : 054 083 258 degrees QTc Int : 414 ms Normal sinus rhythm Possible Left atrial enlargement Low voltage QRS Septal infarct , age undetermined Abnormal ECG When compared with ECG of 16-AUG-2023 05:58, T wave inversion now evident in Lateral leads QT has shortened Confirmed by Mert Oden ([id number]) on 08/27/2023 7:50:27 AM Referred By: REFERRED SELF Confirmed By:Mert Oden
[2023-08-27] MEDS: MIDODRINE HCL 10 MG TAB PO SCH ×3 (07:54→17:17)
[2023-08-27] MEDS: INSULIN ASPART PER UNIT CHARGE SC SCH ×4 (08:45→20:51)
[2023-08-27] MEDS: ADVANCED PROBIOTIC 1250 MG CAPSULE PO SCH (08:46)
[2023-08-27] MEDS: FOLIC ACID 400 MCG TAB PO SCH (08:47)
[2023-08-27] MEDS: CHOLECALCIFEROL 1,000 UNITS 25 MCG TAB PO SCH (08:47)
[2023-08-27] MEDS: FINASTERIDE 5 MG TAB PO SCH (08:47)
[2023-08-27] MEDS: MAGNESIUM CHLORIDE W/CALCIUM 64MG DELAYED REL TAB PO SCH ×2 (08:47→20:50)
[2023-08-27] MEDS: DAPSONE 25 MG TAB PO SCH (08:48)
[2023-08-27] MEDS: PANTOprazole 40 MG TAB PO SCH (08:48)
[2023-08-27] MEDS: DULoxetine HCL 20 MG CAP PO SCH (08:48)
--- NOTE | 2023-08-27 13:21 | Cardiology Consultation ---
Date of Consultation August 27, 2023 Assessment & Plan (1) Autonomic dysfunction: (2) Orthostatic hypotension: (3) Cardiac amyloidosis: Plan This is a 53 year old man with a pmhx of multiple myeloma and cardiac AL amyloidosis (since 2013, and s/p stem cell transplant in 2014, currently on Daratumumab (was previously on carfilzomib but held because of potential issues with heart failure. He is now admitted for lightheadedness/dizziness due to severe hypotension. Of note, he was recently admitted for 11 days salmonella. He tried stopping his torsemide while at home and increasing his midodrine dose but continued to have severe hypotension. He denies chest pain. No N/V/HILL; afebrile. No PND or orthopnea. 1. Severe Hypotension -2/2 autonomic dysfunction from AL Amyloidosis -increase midodrine to 20mg TID -add compression stockings -agree with holding torsemide for now -if BP and orthostatic hypotension does not improve, we may consider adding Florinef and possibly Northera as an outpatient We will continue to follow I provided 85 min of care to the patient in regards to his severe autonomic dysfunction 2/2 AL Amyloidosis. History of Present Illness Reason for Consultation: Cardiac AL Amyloidosis Elevated troponin Orthostatic hypotension Attending Physician: Elizabeth Kimble MD History of Present Illness This is a 53 year old man with a pmhx of multiple myeloma and cardiac AL amyloidosis (since 2013, and s/p stem cell transplant in 2014, currently on Daratumumab (was previously on carfilzomib but held because of potential issues with heart failure. He is now admitted for lightheadedness/dizziness due to severe hypotension. Of note, he was recently admitted for 11 days salmonella. He tried stopping his torsemide while at home and increasing his midodrine dose but continued to have severe hypotension. He denies chest pain. No N/V/HILL; afebrile. No PND or orthopnea. Allergies Allergy/AdvReac Type Severity Reaction Status Date / Time NSAIDS (Non-Steroidal AdvReac Advised by Verified 08/26/23 14:53 Anti-Inflamma nephrology to avoid d/t CKD Yeepirl-NCQ-RvM Reductase AdvReac Muscle Pain Verified 08/26/23 14:53 Inhibitor Home Medications Medication Instructions Recorded Confirmed Type acyclovir 400 mg tablet 400 mg PO QPM 05/16/18 08/26/23 History albuterol sulfate 90 mcg/actuation 2 puff inhalation Q6 PRN Cough or 05/16/18 08/26/23 History aerosol inhaler (Ventolin HFA) SOB pantoprazole 20 mg tablet,delayed 20 mg PO QAM 09/02/20 08/26/23 History release (Protonix) potassium chloride 10 mEq 10 meq PO QAM 09/02/20 08/26/23 History tablet,extended release dapsone 25 mg tablet 25 mg PO QAM 02/26/22 08/26/23 History evolocumab 140 mg/mL subcutaneous 140 mg subcut UD 02/26/22 08/26/23 History pen injector (Repatha SureClick) folic acid 400 mcg tablet 400 mcg PO QAM 02/26/22 08/26/23 History finasteride 5 mg tablet 5 mg PO QAM 07/24/22 08/26/23 History oxycodone 5 mg tablet 5 mg PO Q6H PRN Pain 07/24/22 08/26/23 History trazodone 50 mg tablet 50 mg PO HS PRN Insomnia 07/24/22 08/26/23 History dexamethasone 4 mg tablet 16 mg PO .TWICE A MONTH 05/02/23 08/26/23 History duloxetine 20 mg capsule,delayed 40 mg PO QAM 05/02/23 08/26/23 History release sprinkle icosapent ethyl 1 gram capsule 2 g PO BID 05/02/23 08/26/23 History (Vascepa) immun glob G 4 gram/20 mL(20 0 ml subcut UD 05/02/23 08/26/23 History %)-prol-IgA 0-50 mcg/mL subcutaneous soln (Hizentra) levothyroxine 50 mcg tablet 50 mcg PO QAM 05/02/23 08/26/23 History torsemide 20 mg tablet 0 mg PO QAM 05/02/23 08/26/23 History ondansetron 4 mg disintegrating 4 mg PO Q6H PRN nausea and 08/08/23 08/26/23 Rx tablet vomiting #20 tabs Nss 0.9% W Daratumumab 16mg/Kg 1 dose IV .EVERY 14 DAYS 08/09/23 08/26/23 History acetaminophen 325 mg tablet 325 mg PO UD 08/09/23 08/26/23 History diphenhydramine HCl 50 mg capsule 50 mg PO UD 08/09/23 08/26/23 History epinephrine 0.3 mg/0.3 mL 0.3 mg IM UD PRN severe reaction 08/09/23 08/26/23 History injection, auto-injector (EpiPen) insulin glargine 100 unit/mL (3 10 unit subcut QPM 08/09/23 08/26/23 History mL) subcutaneous pen (Lantus Solostar U-100 Insulin) metformin 500 mg tablet,extended 1,000 mg PO QAM 08/09/23 08/26/23 History release 24 hr midodrine 10 mg tablet 10 mg PO TID 08/09/23 08/26/23 History ondansetron HCl 8 mg tablet 8 mg PO Q8H PRN Nausea 08/09/23 08/26/23 History tenofovir alafenamide 25 mg tablet 25 mg PO QAM 08/09/23 08/26/23 History (Vemlidy) warfarin 2.5 mg tablet 0 mg PO DAILY 08/09/23 08/26/23 History L.acidop,casei,lactis,rham-B.lact,serenity 2 cap PO DAILY #30 caps 08/18/23 08/26/23 Rx 625 mg (10 billion cell) capsule (Advanced Probiotic) cholecalciferol (vitamin D3) 50 150 mcg (3 x 50 mcg (2,000 unit)) 08/18/23 08/26/23 Rx mcg (2,000 unit) tablet (Vitamin PO QAM #90 tabs D3) magnesium chloride 64 mg 64 mg PO BID #60 tabs 08/18/23 08/26/23 Rx (magnesium chloride) tablet,delayed release (Mag 64) Patient History Medical History (Updated 08/27/23 @ 13:24 by Abdirahman Birmingham MD) Cardiac amyloidosis CAD (coronary artery disease) Nonobstructive GERD (gastroesophageal reflux disease) Atrial fibrillation Follows with [facility]/Tim Ruiz PAC Low back problem BPH (benign prostatic hyperplasia) CKD (chronic kidney disease) Follows with [facility]/Dr. 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 Mother No problems noted. Other Adopted Social History Smoking Status: Never smoker Tobacco Type: Cigarettes Second Hand Exposure: No; Do You Dip or Chew Tobacco: No; Tobacco Cessation Education Requested by Patient: No Hx Alcohol Use: No Hx Substance Use: No Preferred Language: Burmese Communication Ability: Effective Decorative Engraver Required: No Beliefs That Will Affect Care: None marital status: marital status details: twice - 3 children in total between the 2 marriages Current Living Situation: Spouse Current Living Situation Comment: lives in [place] current occupational status: disabled current occupation: previously worked at [employer] Other Information That Helps Us Care for You: No Feels Safe at Home: Yes Safety Concerns: Feels Safe At This Time Assistive Devices: Cane, CPAP and Glasses Review of Systems Review of Systems: A comprehensive review of systems is otherwise negative unless noted above. Physical Exam Physical Exam: GEN: AAOx3; NAD HEENT: no JVD CV: RRR; S1+S2; no M/R/G PULM: CTA b/l; no wheezes, rales, or rhonchi ABD: soft; NTND EXT: no lower extremity edema. Results & Data Vital Signs (Past 12 Hours) Vital Signs Temp Pulse Pulse Pulse Resp BP BP 08/27/23 12:27 37.7 C H 81 18 118/77 08/27/23 10:05 69 08/27/23 10:05 08/27/23 07:50 36.9 C 66 20 102/70 08/27/23 03:25 36.9 C 75 18 107/68 Pulse Ox O2 Del Method 08/27/23 12:27 97 Room Air 08/27/23 10:05 08/27/23 10:05 Room Air 08/27/23 07:50 97 Room Air 08/27/23 03:25 94 Room Air
--- NOTE | 2023-08-27 13:56 | Hospitalist Progress Note ---
Date of Service August 27, 2023 Assessment & Plan (1) Hypotension: (2) Orthostatic hypotension: (3) Autonomic dysfunction: (4) Multiple myeloma without remission: (5) CKD (chronic kidney disease) stage 3, GFR 30-59 ml/min: (6) Amyloidosis: (7) Chronic diastolic CHF (congestive heart failure): (8) ARSENIO (acute kidney injury): (9) DEBBY (obstructive sleep apnea): (10) Paroxysmal atrial fibrillation: (11) Multiple myeloma: (12) Elevated troponin: Plan 53yoM with PMHx significant for type 2 diabetes, hyperlipidemia, obstructive sleep apnea, paroxysmal atrial fibrillation, cardiac amyloidosis, chronic heart failure with preserved ejection fraction, nonocclusive coronary disease, CKD stage III, congenital solitary right kidney, BPH, peripheral neuropathic pain, chemotherapy-induced neuropathy, degeneration of lumbosacral sacral disc, multiple myeloma without remission, statin intolerance admitted with hypotension and generalized weakness. Hypotension Patient on midodrine 10mg prior to arrival Also on torsemide, continue to hold Gentle IVF Echo with EF 45-50%, severe LVH, mild global hypokinesis of LV, Grade III diastolic dysfunction, decreased RV systolic function, small pericardial effusion, small left pleural effusion Cardiology consulted- appreciate recs -advised hypotension related to autonomic dysfunction from AL Amyloidosis -increased midodrine to 20mg TID -advised adding compression stockings -continue to hold torsemide -will consider Florinef (and possibly Northera as an outpt) if persistent ARSENIO Acute on chronic kidney disease Congenital solitary right kidney Baseline creatinine 1.7 Admission creatinine 1.8 Holding torsemide Gentle fluids trend with AM labs, improving Elevated troponin hs-trop trended from 64.2 on admission to 59.7 currently Chronically elevated EKG NSR Echo with EF 45-50%, severe LVH, mild global hypokinesis of LV, Grade III diastolic dysfunction, decreased RV systolic function, small pericardial effusion, small left pleural effusion No chest pain or shortness of breath Doubt ACS Appreciate cardiology recs History of chronic heart failure with reduced ejection fraction Cardiac amyloidosis Echo in 02/2023 EF of 42% Echo this admission: EF 45-50%, severe LVH, mild global hypokinesis of LV, Grade III diastolic dysfunction, decreased RV systolic function, small pericardial effusion, small left pleural effusion Currently holding torsemide and potassium supplement Received gentle IVF Monitor for volume overload History of multiple myeloma Chemo as per heme-onc On dapsone, acyclovir, tenofovir, continue DMII Hgba1c of 6.8 Continue Lantus Hold metformin Insulin sliding scale Monitor glucose levels History of A-fib On Coumadin, INR subtherapeutic at 1.2 Amiodarone previously discontinued Started on Lovenox bridge, noted CrCl >50 at this time, acceptable Hypothyroidism On Synthroid, continue History of CAD nonocclusive On Coumadin and Repatha BPH on Proscar GERD on Protonix Obstructive sleep apnea CPAP nightly Diet: HH/DM DVT prophylaxis: on Coumadin follow PT/INR. Lovenox bridge ordered with improved kidney function Full code Dispo: PT/OT ordered Admission and Anticipated Discharge Date Admission Date: August 26, 2023 Subjective Pt seen in the AM Denied chest pain, SOB, palpitations. Noted no acute concerns. Review of Systems Review of Systems: All systems reviewed & are unremarkable except as noted in Subjective Physical Exam Physical Exam: General: Alert, oriented. No acute distress Skin: No noted rashes or bruises Psych: Appropriate mood and affect Neuro: difficulty with movements HEENT: NC/AT CV: RRR Resp: Breath sounds clear bilaterally, no increased effort of breathing. Abdomen: Soft, nontender, nondistended Extremities: edema in lower extremities bilaterally. Results & Data Results & Data Vital Signs (Past 12 Hours) Vital Signs Temp Pulse Pulse Pulse Resp BP BP 08/27/23 12:27 37.7 C H 81 18 118/77 08/27/23 10:05 69 08/27/23 10:05 08/27/23 07:50 36.9 C 66 20 102/70 08/27/23 03:25 36.9 C 75 18 107/68 Pulse Ox O2 Del Method 08/27/23 12:27 97 Room Air 08/27/23 10:05 08/27/23 10:05 Room Air 08/27/23 07:50 97 Room Air 08/27/23 03:25 94 Room Air (6) Amyloidosis Amyloidosis type: unspecified amyloidosis Qualified Code(s): E85.9 - Amylo idosis, unspecified (11) Multiple myeloma Multiple myeloma remission status: not in remission Qualified Code(s): C90.00 - Multiple myeloma not having achieved remission
[2023-08-27] MEDS ORDERED: WARFARIN SOD 1.25 MG TAB PO SCH (16:00)
[2023-08-27] MEDS ORDERED: ENOXAPARIN 1 MG/KG SC SCH (19:00)
[2023-08-27] MEDS: ENOXAPARIN 80 MG/0.8 ML SYR SQ SCH (20:49)
[2023-08-27] MEDS: LANTUS PER UNIT CHARGE SQ SCH (20:50)
[2023-08-27] MEDS: ACYCLOVIR 400 MG TAB PO SCH (20:50)
[2023-08-27] MEDS ORDERED: ENOXAPARIN 80 MG/0.8 ML SYR SQ SCH (21:00)
[2023-08-28 05:40] LABS: Basophils # (auto) 0.08 K/uL (0.00-0.20); Basophils % (auto) 0.9 %; Eosinophils # (auto) 0.36 K/uL (0.00-0.50); Eosinophils % (auto) 4.3 %; Hematocrit (blood only) 34.7 % (42.0-52.0); Hemoglobin 11.4 g/dl (14.0-18.0); Immature Granulocytes # (auto) 0.36 K/uL (0.01-0.20); Immature Granulocytes % (auto) 4.3 %; Lymphocytes # (auto) 0.73 K/uL (1.20-3.40); Lymphocytes % (auto) 8.6 %; Mean Corpuscular Hemoglobin 31.9 pg (25.0-34.0); Mean Corpuscular Hgb Conc 32.9 g/dL (32.0-36.0); Mean Corpuscular Volume 97.2 fL (80.0-100.0); Mean Platelet Volume 10.4 fL (9.4-12.4); Monocytes # (auto) 1.63 K/uL (0.11-0.59); Monocytes % (auto) 19.3 %; Neutrophils % (auto) 62.6 %; Nucleated RBC # (auto) 0.03 K/uL (0.00-0.12); Nucleated RBC % (auto) 0.4 %; Platelet Count 406 K/uL (130-400); RDW Coefficient of Variation 15.4 % (11.5-14.5); RDW Standard Deviation 55.1 fL (36.4-46.3); Red Blood Count 3.57 M/uL (4.70-6.10); White Blood Count 8.46 K/ul (4.8-10.8)
[2023-08-28 05:57] LABS: Albumin Globulin Ratio 1.8 (0.9-2); Albumin Level 3.3 gm/dl (3.4-5.0); BUN Creatinine Ratio 15.3 (10-20); Bilirubin,Total 0.4 mg/dl (0.2-1.0); Calcium 10.4 mg/dl (8.6-10.3); Creatinine Clr Calc Pharmacy 57.4 ml/min; Est GFR (African American) 63.8 ml/min; Globulin 1.8 gm/dl (2.5-4.0); Magnesium 1.9 mg/dl (1.7-2.4); Phosphorus 2.8 mg/dl (2.5-4.9); Potassium 4.6 mmol/L (3.5-5.1); Total Protein 5.1 gm/dl (6.0-8.3)
[2023-08-28 06:18] LABS: INR 1.2 (0.9-1.1); Prothrombin Time 13.3 Seconds (9.0-12.0)
[2023-08-28] MEDS: LEVOTHYROXINE SODIUM 50 MCG TABLET PO SCH (06:33)
[2023-08-28] MEDS: ENOXAPARIN 80 MG/0.8 ML SYR SQ SCH (06:35)
[2023-08-28] MEDS: MAGNESIUM CHLORIDE W/CALCIUM 64MG DELAYED REL TAB PO SCH (08:44)
[2023-08-28] MEDS: INSULIN ASPART PER UNIT CHARGE SC SCH ×2 (08:44→12:18)
[2023-08-28] MEDS: DAPSONE 25 MG TAB PO SCH (08:45)
[2023-08-28] MEDS: CHOLECALCIFEROL 1,000 UNITS 25 MCG TAB PO SCH (08:45)
[2023-08-28] MEDS: ADVANCED PROBIOTIC 1250 MG CAPSULE PO SCH (08:45)
[2023-08-28] MEDS: FINASTERIDE 5 MG TAB PO SCH (08:45)
[2023-08-28] MEDS: DULoxetine HCL 20 MG CAP PO SCH (08:45)
[2023-08-28] MEDS: FOLIC ACID 400 MCG TAB PO SCH (08:45)
[2023-08-28] MEDS: PANTOprazole 40 MG TAB PO SCH (08:45)
[2023-08-28] MEDS: MIDODRINE HCL 10 MG TAB PO SCH ×2 (08:45→12:33)
--- NOTE | 2023-08-28 10:57 | Hospitalist Progress Note ---
Date of Service August 28, 2023 Assessment & Plan (1) Hypotension: (2) Orthostatic hypotension: (3) Autonomic dysfunction: (4) Multiple myeloma without remission: (5) CKD (chronic kidney disease) stage 3, GFR 30-59 ml/min: (6) Amyloidosis: (7) Chronic diastolic CHF (congestive heart failure): (8) ARSENIO (acute kidney injury): (9) DEBBY (obstructive sleep apnea): (10) Paroxysmal atrial fibrillation: (11) Multiple myeloma: (12) Elevated troponin: Plan 53yoM with PMHx significant for type 2 diabetes, hyperlipidemia, obstructive sleep apnea, paroxysmal atrial fibrillation, cardiac amyloidosis, chronic heart failure with preserved ejection fraction, nonocclusive coronary disease, CKD stage III, congenital solitary right kidney, BPH, peripheral neuropathic pain, chemotherapy-induced neuropathy, degeneration of lumbosacral sacral disc, multiple myeloma without remission, statin intolerance admitted with hypotension and generalized weakness. Hypotension Patient on midodrine 10mg prior to arrival Also on torsemide, continue to hold Gentle IVF Echo with EF 45-50%, severe LVH, mild global hypokinesis of LV, Grade III diastolic dysfunction, decreased RV systolic function, small pericardial effusion, small left pleural effusion Cardiology consulted- appreciate recs -advised hypotension related to autonomic dysfunction from AL Amyloidosis -increased midodrine to 20mg TID -advised adding compression stockings -continue to hold torsemide -will consider Florinef (and possibly Northera as an outpt) if persistent ARSENIO Acute on chronic kidney disease Congenital solitary right kidney Baseline creatinine 1.7 Admission creatinine 1.8 Holding torsemide Gentle fluids trend with AM labs, improving Elevated troponin hs-trop trended from 64.2 on admission to 59.7 currently Chronically elevated EKG NSR Echo with EF 45-50%, severe LVH, mild global hypokinesis of LV, Grade III diastolic dysfunction, decreased RV systolic function, small pericardial effusion, small left pleural effusion No chest pain or shortness of breath Doubt ACS Appreciate cardiology recs History of chronic heart failure with reduced ejection fraction Cardiac amyloidosis Echo in 02/2023 EF of 42% Echo this admission: EF 45-50%, severe LVH, mild global hypokinesis of LV, Grade III diastolic dysfunction, decreased RV systolic function, small pericardial effusion, small left pleural effusion Currently holding torsemide and potassium supplement Received gentle IVF Monitor for volume overload History of multiple myeloma Chemo as per heme-onc On dapsone, acyclovir, tenofovir, continue DMII Hgba1c of 6.8 Continue Lantus Hold metformin Insulin sliding scale Monitor glucose levels History of A-fib On Coumadin, INR subtherapeutic at 1.2 Amiodarone previously discontinued Started on Lovenox bridge, noted CrCl >50 at this time, acceptable Hypothyroidism On Synthroid, continue History of CAD nonocclusive On Coumadin and Repatha BPH on Proscar GERD on Protonix Obstructive sleep apnea CPAP nightly Diet: HH/DM DVT prophylaxis: on Coumadin follow PT/INR. Lovenox bridge ordered with improved kidney function Full code Dispo: PT/OT ordered Admission and Anticipated Discharge Date Admission Date: August 26, 2023 Physical Exam Physical Exam: General: Alert, oriented. No acute distress Skin: No noted rashes or bruises Psych: Appropriate mood and affect Neuro: difficulty with movements HEENT: NC/AT CV: RRR Resp: Breath sounds clear bilaterally, no increased effort of breathing. Abdomen: Soft, nontender, nondistended Extremities: edema in lower extremities bilaterally. Results & Data Results & Data Vital Signs (Past 12 Hours) Vital Signs Temp Pulse Pulse Pulse Resp BP BP 08/28/23 08:00 76 08/28/23 08:00 08/28/23 08:00 77 20 130/74 08/28/23 07:30 36.7 C 76 16 121/78 08/28/23 03:10 36.6 C 72 16 116/73 08/28/23 02:29 75 22 08/27/23 23:45 78 08/27/23 23:04 37.2 C 75 18 115/69 Pulse Ox O2 Del Method 08/28/23 08:00 08/28/23 08:00 Room Air 08/28/23 08:00 97 Room Air 08/28/23 07:30 97 Room Air 08/28/23 03:10 97 Room Air 08/28/23 02:29 92 08/27/23 23:45 08/27/23 23:04 95 CPAP (6) Amyloidosis Amyloidosis type: unspecified amyloidosis Qualified Code(s): E85.9 - Amyloidosis, unspecified (11) Multiple myeloma Multiple myeloma remission status: not in remission Qualified Code(s): C90.00 - Multiple myeloma not having achieved remission
--- NOTE | 2023-08-28 11:28 | Cardiology Progress Note ---
"Date of Service August 28, 2023 Assessment & Plan (1) Autonomic dysfunction: (2) Orthostatic hypotension: (3) Cardiac amyloidosis: Plan This is a 53 year old man with a pmhx of multiple myeloma and cardiac AL amyloidosis (since 2013, and s/p stem cell transplant in 2014, currently on Daratumumab (was previously on carfilzomib but held because of potential issues with heart failure. He is now admitted for lightheadedness/dizziness due to severe hypotension. Of note, he was recently admitted for 11 days salmonella. He tried stopping his torsemide while at home and increasing his midodrine dose but continued to have severe hypotension. He denies chest pain. No N/V/HILL; afebrile. No PND or orthopnea. 1. Severe Hypotension -2/2 autonomic dysfunction from AL Amyloidosis -continue midodrine at 20mg TID -Plan to DC home on midodrine at 20mg TID and torsemide 20mg every other day (doubling up on chemo days) -if BP and orthostatic hypotension does not improve, we may consider adding Florinef and possibly Northera as an outpatient -follow up with outpatient manager media relations in 1 week I provided 55 min of care to the patient in regards to his severe autonomic dysfunction 2/2 AL Amyloidosis. Admission and Anticipated Discharge Date Admission Date: August 26, 2023 Subjective Pt seen in the AM Denied chest pain, SOB, palpitations. Noted no acute concerns. Review of Systems Review of Systems: A comprehensive review of systems is otherwise negative unless noted above. Physical Exam Physical Exam: GEN: AAOx3; NAD HEENT: no JVD CV: RRR; S1+S2; no M/R/G PULM: CTA b/l; no wheezes, rales, or rhonchi ABD: soft; NTND EXT: no lower extremity edema. Results & Data Vital Signs (Past 12 Hours) Vital Signs Temp Pulse Pulse Pulse Resp BP BP 08/28/23 08:00 76 08/28/23 08:00 08/28/23 08:00 77 20 130/74 08/28/23 07:30 36.7 C 76 16 121/78 08/28/23 03:10 36.6 C 72 16 116/73 08/28/23 02:29 75 22 08/27/23 23:45 78 Pulse Ox O2 Del Method 08/28/23 08:00 08/28/23 08:00 Room Air 08/28/23 08:00 97 Room Air 08/28/23 07:30 97 Room Air 08/28/23 03:10 97 Room Air 08/28/23 02:29 92 08/27/23 23:45 Laboratory Results Na | 134 | L | 136-145 mmol/L | K | 4.6 | | 3.5-5.1 mmol/L | Cl | 102 | | 98-107 mmol/L | CO2 | 29 | | 21-32 mmol/L | Gap | 3 | | 3-11 | BUN | 22 | | 6-23 mg/dl | Creat | 1.44 | H | 0.6-1.4 mg/dl | Creat Calc PHA | 57.4 | | ml/min | | Est. Creatinine Clearance (Mod Cockcroft-Gault) for pharmacy | dosing purposes. EGFR AA | 63.8 | | ml/min | | Units: ml/min per 1.73 meters squared | | The estimated GFR (CKD-EPI equation) has not been validated | for inpatient settings and may not be an accurate reflection | of renal function in critically ill patients or those with | rapidly changing renal function (e.g. ARSENIO). EGFR EDWIN | 55.0 | | ml/min | | Units: ml/min per 1.73 meters squared | | The estimated GFR (CKD-EPI equation) has not been validated | for inpatient settings and may not be an accurate reflection | of renal function in critically ill patients or those with | rapidly changing renal function (e.g. ARSENIO). BUN Creat Ratio | 15.3 | | 10-20 | Glu | 116 | H | 70-99(Fasting) mg/dl | Ca | 10.4 | H | 8.6-10.3 mg/dl | Phos | 2.8 | | 2.5-4.9 mg/dl | MG | 1.9 | | 1.7-2.4 mg/dl | Total Bilirubin | 0.4 | | 0.2-1.0 mg/dl | AST | 20 | | 13-39 U/L | Alt | 25 | | 7-52 U/L | TP | 5.1 | L | 6.0-8.3 gm/dl | Alb | 3.3 | L | 3.4-5.0 gm/dl | Globulin | 1.8 | L | 2.5-4.0 gm/dl | A/G Ratio | 1.8 | | 0.9-2 | Alk Phos | 96 | | 34-104 U/L |"
--- NOTE | 2023-08-28 11:48 | Discharge Summary ---
Discharge Summary Date of Service August 28, 2023 Notes For Next Care Provider Needs Coumadin clinic followup as soon as possible for INR monitoring- in the next 7 days. INR 1.2 on discharge. Discharged with Lovenox bridge. Please ensure Cardiology follow up in 1 week Please ensure oncology follow up- CT abd/pelvis from 08/08 noted numerous osteolytic bone lesions and a mesenteric mass lesion. Medication Changes From Visit Midodrine dose increased from 10mg TID to 20mg TID by cardiology Torsemide dosing changed to 20mg every other day. 40mg on chemotherapy days per Cardiology. Lovenox 70mg SQ BID for bridging while on warfarin Admission HPI Per Admitting Provider 53-year-old male with past med significant for type 2 diabetes, hyperlipidemia, obstructive sleep apnea, paroxysmal atrial fibrillation, cardiac amyloidosis, chronic heart failure with preserved ejection fraction, nonocclusive coronary disease, CKD stage III, congenital solitary right kidney, BPH, peripheral neuropathic pain, chemotherapy-induced neuropathy, degeneration of lumbosacral sacral disc, multiple myeloma without remission, statin intolerance comes because of hypotension and weakness. Patient takes midodrine. He held his torsemide for last couple of days but his blood pressure was not improving. He was feeling dizzy and weak and difficulty ambulating which prompted him to come to the ER. Denies any chest pain or shortness of breath. No headaches. Vision is okay. No cough. No fevers. Recently was admitted for Salmonella diarrhea, currently resolved. Normal bowel and bladder movements. No abdominal pain. Appetite is okay. Currently resting comfortably. Past medical history. As mentioned above. Past surgical history. Colonoscopy. Cystourethroscopy with plans prostatic implant. EGD. EGD with endoscopic ultrasound. S/p autologous stem cell transplantation 2014. Bilateral cataract surgery. Vasectomy. Social history. . No smoking. Alcohol rarely. No drug use. Family history. No family history on file. Admission Exam Per Admitting Provider General- Not in distress Head- atraumatic Eyes- , EOMI. ENT- oropharynx clear Neck- supple, no JVD Lungs- clear to auscultation no wheezing or crackles. Heart- regular rhythm; no murmur, no gallop. Abdomen- normal bowel sounds, soft, nontender, no distension. Extremities- no pretibial edema Neuro- alert, oriented x 3; EOMI; no facial palsy; no dysarthria; moves extremities. Principal Dx & Hospital Course #1 = Principal Diagnosis (1) Hypotension: (2) Orthostatic hypotension: (3) Autonomic dysfunction: (4) Multiple myeloma without remission: (5) CKD (chronic kidney disease) stage 3, GFR 30-59 ml/min: (6) Amyloidosis: (7) Chronic diastolic CHF (congestive heart failure): (8) ARSENIO (acute kidney injury): (9) DEBBY (obstructive sleep apnea): (10) Paroxysmal atrial fibrillation: (11) Multiple myeloma: (12) Elevated troponin: (13) Ambulatory dysfunction: Plan Numerous osteolytic bone lesions and a mesenteric mass lesion 53yoM with PMHx significant for type 2 diabetes, hyperlipidemia, obstructive sleep apnea, paroxysmal atrial fibrillation, cardiac amyloidosis, chronic heart failure with preserved ejection fraction, nonocclusive coronary disease, CKD stage III, congenital solitary right kidney, BPH, peripheral neuropathic pain, chemotherapy-induced neuropathy, degeneration of lumbosacral sacral disc, multiple myeloma without remission, statin intolerance admitted with hypotension and generalized weakness. Hypotension Patient on midodrine 10mg prior to arrival Also on torsemide, continue to hold Gentle IVF Echo with EF 45-50%, severe LVH, mild global hypokinesis of LV, Grade III diastolic dysfunction, decreased RV systolic function, small pericardial effusion, small left pleural effusion Cardiology consulted- appreciate recs -advised hypotension related to autonomic dysfunction from AL Amyloidosis -increased midodrine to 20mg TID -advised adding compression stockings -will consider Florinef and possibly Northera as an outpt if persistent Per cardiology discharge with midodrine 20mg TID, resume torsemide on discharge but change dosing to every other day, double the torsemide dose on chemotherapy days. Cardiology follow up in 1 week after discharge. ARSENIO Acute on chronic kidney disease Congenital solitary right kidney Baseline creatinine ~1.7 Admission creatinine 1.8 Held torsemide, received gentle fluids creatinine 1.4 on discharge PCP follow up Elevated troponin hs-trop trended from 64.2 on admission to down to 59.7 Chronically elevated EKG NSR Echo with EF 45-50%, severe LVH, mild global hypokinesis of LV, Grade III diastolic dysfunction, decreased RV systolic function, small pericardial effusion, small left pleural effusion No chest pain or shortness of breath Doubt ACS Cardiology follow up History of chronic heart failure with reduced ejection fraction Cardiac amyloidosis Echo in 02/2023 EF of 42% Echo this admission: EF 45-50%, severe LVH, mild global hypokinesis of LV, Grade III diastolic dysfunction, decreased RV systolic function, small pericardial effusion, small left pleural effusion Held torsemide and potassium supplement Received gentle IVF Resume torsemide on discharge but change dosing to every other day, double the torsemide dose on chemotherapy days. cardiology f/u in 1 week, pcp f/u History of multiple myeloma Chemo as per heme-onc On dapsone, acyclovir, tenofovir, continue CT abd pelvis on 08/08 noted Numerous osteolytic bone lesions and a mesenteric mass lesion Please ensure oncology follow up DMII Hgba1c of 6.8 Basal/bolus regimen while hospitlized Resume home meds on d/c PCP f/u History of A-fib On Coumadin, INR subtherapeutic at 1.2 on discharge Amiodarone previously discontinued Started on Lovenox bridge, noted CrCl >50 at this time, acceptable Discharged with Lovenox 70mg SQ BID for bridging while on warfarin Close coumadin clinic and pcp followup for INR monitoring Cardiology f/u as well Hypothyroidism On Synthroid, continue History of CAD nonocclusive On Coumadin and Repatha, continue BPH on Proscar, continue GERD on Protonix, continue Obstructive sleep apnea CPAP nightly Discharge Exam General: Alert, oriented. No acute distress Skin: No noted rashes or bruises Psych: Appropriate mood and affect Neuro: difficulty with movements HEENT: NC/AT CV: RRR Resp: Breath sounds clear bilaterally, no increased effort of breathing. Abdomen: Soft, nontender, nondistended Extremities: edema in lower extremities bilaterally. Updated Medication List Medication Instructions Recorded Confirmed Type acyclovir 400 mg tablet 400 mg PO QPM 05/16/18 08/26/23 History albuterol sulfate 90 mcg/actuation 2 puff inhalation Q6 PRN Cough or 05/16/18 08/26/23 History aerosol inhaler (Ventolin HFA) SOB pantoprazole 20 mg tablet,delayed 20 mg PO QAM 09/02/20 08/26/23 History release (Protonix) potassium chloride 10 mEq 10 meq PO QAM 09/02/20 08/26/23 History tablet,extended release dapsone 25 mg tablet 25 mg PO QAM 02/26/22 08/26/23 History evolocumab 140 mg/mL subcutaneous 140 mg subcut UD 02/26/22 08/26/23 History pen injector (Sherry Doran) folic acid 400 mcg tablet 400 mcg PO QAM 02/26/22 08/26/23 History finasteride 5 mg tablet 5 mg PO QAM 07/24/22 08/26/23 History oxycodone 5 mg tablet 5 mg PO Q6H PRN Pain 07/24/22 08/26/23 History trazodone 50 mg tablet 50 mg PO HS PRN Insomnia 07/24/22 08/26/23 History dexamethasone 4 mg tablet 16 mg PO .TWICE A MONTH 05/02/23 08/26/23 History duloxetine 20 mg capsule,delayed 40 mg PO QAM 05/02/23 08/26/23 History release sprinkle icosapent ethyl 1 gram capsule 2 g PO BID 05/02/23 08/26/23 History (Vascepa) immun glob G 4 gram/20 mL(20 0 ml subcut UD 05/02/23 08/26/23 History %)-prol-IgA 0-50 mcg/mL subcutaneous soln (Hizentra) levothyroxine 50 mcg tablet 50 mcg PO QAM 05/02/23 08/26/23 History torsemide 20 mg tablet 0 mg PO QAM 05/02/23 08/26/23 History ondansetron 4 mg disintegrating 4 mg PO Q6H PRN nausea and 08/08/23 08/26/23 Rx tablet vomiting #20 tabs Nss 0.9% W Daratumumab 16mg/Kg 1 dose IV .EVERY 14 DAYS 08/09/23 08/26/23 History acetaminophen 325 mg tablet 325 mg PO UD 08/09/23 08/26/23 History diphenhydramine HCl 50 mg capsule 50 mg PO UD 08/09/23 08/26/23 History epinephrine 0.3 mg/0.3 mL 0.3 mg IM UD PRN severe reaction 08/09/23 08/26/23 History injection, auto-injector (EpiPen) insulin glargine 100 unit/mL (3 10 unit subcut QPM 08/09/23 08/26/23 History mL) subcutaneous pen (Lantus Solostar U-100 Insulin) metformin 500 mg tablet,extended 1,000 mg PO QAM 08/09/23 08/26/23 History release 24 hr midodrine 10 mg tablet 10 mg PO TID 08/09/23 08/26/23 History ondansetron HCl 8 mg tablet 8 mg PO Q8H PRN Nausea 08/09/23 08/26/23 History tenofovir alafenamide 25 mg tablet 25 mg PO QAM 08/09/23 08/26/23 History (Vemlidy) warfarin 2.5 mg tablet 0 mg PO DAILY 08/09/23 08/26/23 History L.acidop,casei,lactis,rham-B.lact,serenity 2 cap PO DAILY #30 caps 08/18/23 08/26/23 Rx 625 mg (10 billion cell) capsule (Advanced Probiotic) cholecalciferol (vitamin D3) 50 150 mcg (3 x 50 mcg (2,000 unit)) 08/18/23 08/26/23 Rx mcg (2,000 unit) tablet (Vitamin PO QAM #90 tabs D3) magnesium chloride 64 mg 64 mg PO BID #60 tabs 08/18/23 08/26/23 Rx (magnesium chloride) tablet,delayed release (Mag 64) enoxaparin 80 mg/0.8 mL 70 mg (0.7 mL) subcut Q12H #8 mL 08/28/23 Rx subcutaneous syringe (Lovenox) midodrine 10 mg tablet 20 mg (2 x 10 mg) PO 08/28/23 Rx TID@0800,1200,1700 #180 tabs torsemide 20 mg tablet See Rx Instructions .Route 08/28/23 Rx .COMPLEX #30 tabs Hospital Stay Data Consultations 08/26/23 15:08 ED Decision to Admit Stat 08/27/23 08:00 Consult Cardiology Routine Diagnostic Imagining Performed Chest X-Ray 08/26/23 13:15 XR chest 1V portable HISTORY: 53 years-old Male weakness acute weakness COMPARISON: 08/17/2023 TECHNIQUE: AP view of the chest FINDINGS: Cardiac silhouette is enlarged. Right IJ Ggoxrx-c-Buau catheter is again noted with distal tip in the expected location of the inferior SVC. No pneumothorax, or overt pulmonary edema. Pulmonary vascular congestion. Trace pleural effusions have decreased in size from prior. There is also improved aeration of the lung bases. Bones appear grossly intact. IMPRESSION: 1. Cardiomegaly with pulmonary vascular congestion. 2. Trace pleural effusions with improved aeration of the lung bases. ACT 112: Negative or not required by law. The above report was generated using voice recognition software. It may contain grammatical, syntax or spelling errors. Electronically signed by: Blade Larry M.D. 08/26/2023 2:32 PM Discharge Instructions Given to Patient (Per Discharging Provider) Mr. Ochoa, You were admitted as your blood pressure was very low and that remained low. You were seen by the aircraft structural repairer who advised that your symptoms are related to your history of cardiac amyloidosis that is affecting your ability to maintain your blood pressure. Cardiology increased your dose of midodrine to 20mg three times a day. They advise that you can take your home torsemide EVERY OTHER DAY but take double your dose on the days that you have chemotherapy. Cardiology requests that you follow up with them in 1 week. Your INR that we measure while you are on warfarin is low. We are discharging you home with Lovenox to help prevent blood clots while you take your home warfarin until the INR is between 2 and 3. Please continue to use the Lovenox with the warfarin until you follow up with the coumadin clinic as soon as p ossible. Your INR on discharge was 1.2. Please follow up with the Coumadin clinic in the next 7 days. You are also requesting a walker for discharge. Please also keep close follow up with your primary care provider after discharge. Should your symptoms return or worsen, please do not hesitate to come back to the emergency room. It was a pleasure taking care of you while you were here. Total Time Total Time Spent Total Time Spent (In Minutes): > 30 minutes
--- NOTE | 2023-08-28 22:54 | Electrocardiogram Report ---
Test Reason : Blood Pressure : / mmHG Vent. Rate : 072 BPM Atrial Rate : 072 BPM P-R Int : 166 ms QRS Dur : 100 ms QT Int : 426 ms P-R-T Axes : 036 094 -76 degrees QTc Int : 466 ms Normal sinus rhythm Rightward axis Low voltage QRS Septal infarct (cited on or before 26-AUG-2023) T wave abnormality, consider inferolateral ischemia Abnormal ECG When compared with ECG of 26-AUG-2023 13:03, No significant change was found Confirmed by Perico Little ([id number]) on 08/28/2023 10:54:10 PM Referred By: REFERRED SELF Confirmed By:Perico Little
--- NOTE | 2023-08-29 22:57 | Electrocardiogram Report ---
Test Reason : Blood Pressure : / mmHG Vent. Rate : 069 BPM Atrial Rate : 070 BPM P-R Int : 174 ms QRS Dur : 100 ms QT Int : 450 ms P-R-T Axes : 061 096 -83 degrees QTc Int : 482 ms Normal sinus rhythm Rightward axis Septal infarct (cited on or before 26-AUG-2023) Nonspecific ST and T wave abnormality Prolonged QT Abnormal ECG When compared with ECG of 27-AUG-2023 04:49, No significant change was found Confirmed by Perico Little ([id number]) on 08/29/2023 10:57:41 PM Referred By: REFERRED SELF Confirmed By:Perico Little
== END 2023-08-28 14:24 | disposition home health service (06) | DRG 546 ==
LOC: ED 12:45 → 4W 16:06 → SUATTDRO 16:06 → 4W 18:11

== ENCOUNTER 2023-09-15 04:55 | Inpatient (IN) ==
[2023-09-15] MEDS ORDERED: cefTRIAXone SODIUM 2,000 MG/50 ML BAG IV STA (05:29)
[2023-09-15] MEDS ORDERED: SODIUM CHLORIDE 0.9% 1,000 ML IV SCH (05:30)
[2023-09-15 06:05] LABS: Basophils # (auto) 0.06 K/uL (0.00-0.20); Basophils % (auto) 0.4 %; Eosinophils # (auto) 0.12 K/uL (0.00-0.50); Eosinophils % (auto) 0.8 %; Hematocrit (blood only) 33.2 % (42.0-52.0); Hemoglobin 11.1 g/dl (14.0-18.0); Immature Granulocytes # (auto) 0.09 K/uL (0.01-0.20); Immature Granulocytes % (auto) 0.6 %; Lymphocytes # (auto) 0.38 K/uL (1.20-3.40); Lymphocytes % (auto) 2.4 %; Mean Corpuscular Hemoglobin 32.2 pg (25.0-34.0); Mean Corpuscular Hgb Conc 33.4 g/dL (32.0-36.0); Mean Corpuscular Volume 96.2 fL (80.0-100.0); Mean Platelet Volume 9.9 fL (9.4-12.4); Monocytes # (auto) 1.07 K/uL (0.11-0.59); Monocytes % (auto) 6.8 %; Neutrophils # (auto) 14.09 K/uL (1.40-6.50); Platelet Count 372 K/uL (130-400); RDW Coefficient of Variation 15.4 % (11.5-14.5); RDW Standard Deviation 54.8 fL (36.4-46.3); Red Blood Count 3.45 M/uL (4.70-6.10); White Blood Count 15.81 K/ul (4.8-10.8)
[2023-09-15 06:19] LABS: Albumin Globulin Ratio 1.7 (0.9-2); Albumin Level 3.7 gm/dl (3.4-5.0); BUN Creatinine Ratio 11.2 (10-20); Bilirubin,Total 0.7 mg/dl (0.2-1.0); Calcium 9.6 mg/dl (8.6-10.3); Creatinine Clr Calc Pharmacy 54.9 ml/min; Est GFR (African American) 64.3 ml/min; Est GFR (Non-African American) 55.5 ml/min; Globulin 2.2 gm/dl (2.5-4.0); Potassium 4.2 mmol/L (3.5-5.1); Total Protein 5.9 gm/dl (6.0-8.3)
[2023-09-15] MEDS ORDERED: ONDANSETRON INJ 2 MG/ML 2 ML VIAL IV STA (06:20)
--- NOTE | 2023-09-15 06:34 | Emergency Department Note ---
Impression & Plan Salmonella enteritis, Multiple myeloma, Diarrhea, Nausea & vomiting ED Provider Note CHIEF COMPLAINT: Salmonella, diarrhea, generalized illness HISTORY OF PRESENT ILLNESS: This 53-year-old male patient presents to the emergency department via private vehicle for evaluation of Salmonella diarrhea. The patient states that he was admitted in July for Salmonella. He had multiple electrolyte abnormalities and required an extended course of antibiotics. He did had an infectious disease consultation. He was on Rocephin in the hospital and was eventually transitioned to Bactrim as an outpatient. The patient did not ever have any test to evaluate for cure, but his symptoms did seem to improve for a while. Just a week ago, the patient developed recurrent diarrhea. It was only a few times a day for several days, but over the past 2 to 3 days seemed to suddenly worsen. The patient contacted his PCP and had outpatient stool study completed. The results at about 1130 last night that the stool test was positive for Salmonella. The patient states that from about 11 until about 3 AM, he went to the bathroom 13 times. He had significant diarrhea and some abdominal cramping. The patient has been unable to keep down food or fluids throughout the night. He does have a history of multiple myeloma and is currently on chemotherapy. Patient denies any fever. No bloody diarrhea. No current abdominal pain or cramping. No chest pain or shortness of breath. No other recent illness. REVIEW OF SYSTEMS: A 10 system review of systems was performed with positives and pertinent negatives listed in the history of present illness. All other systems were reviewed and are negative. ALLERGIES: NSAIDs, statins PHYSICAL EXAM: VITALS: Vitals are noted on the nurse's note and reviewed by myself. Vital signs stable. GENERAL: This is a 53 year old chronically ill appearing male, in no acute distress, nondiaphoretic, well-developed well-nourished. SKIN: The skin was without rashes, erythema, edema, or bruising. There is no tenting of the skin. Capillary refill less than 2 seconds. HEAD: Normocephalic atraumatic. EARS: External auditory canals clear, tympanic membranes pearly gamboa without erythema or effusion bilaterally. No hemotympanum. Negative williamson sign EYES: Pupils equal round and reactive to light and accommodation. Conjunctivae without injection, sclerae without icterus. Extraocular movements intact. NOSE: Patent, turbinates without inflammation or discharge. No sinus tenderness. MOUTH: Mucous membranes dry. Tonsils are not enlarged. Pharynx without erythema or exudate. Uvula midline. Airway patent. Tongue does not deviate. NECK: Supple without nuchal rigidity. No lymphadenopathy. No JVD. HEART: Regular rate and rhythm without murmurs gallops or rubs. LUNGS: Clear to auscultation bilaterally without wheezes, rales or rhonchi. No retractions or accessory muscle use. ABDOMEN: Positive bowel sounds x 4. Soft, nontender, without masses or organomegaly. Brar sign negative. No guarding or rebound tenderness. No CVA tenderness bilaterally. MUSCULOSKELETAL: No muscle atrophy, erythema, or edema noted. Full range of motion without joint tenderness in all extremities. No tenderness to palpation. Normal gait. Strength 5/5 throughout. NEURO: Patient was alert and oriented to person place and time. No focal neurological deficits. An order was placed for continuous playground monitor. The monitor showed a normal sinus rhythm at a ventricular rate of 90 bpm, per my interpretation. EMERGENCY DEPARTMENT COURSE: The patient was seen and evaluated as above. IV access was obtained, labs were drawn. Patient was hydrated with IV fluids. Previous medical records were reviewed. The patient did have infectious disease consultation. Recommendation was made for 2-week course of Bactrim to treat the Salmonella at that time. The patient was initially started on Rocephin and was ultimately able to be downgraded to Bactrim orally. Patient was medicated with IV Rocephin here in the ED. Labs were reviewed. There was a leukocytosis of 15.81. Mild anemia with a hemoglobin of 11.1. No thrombocytopenia. Renal, hepatic function and electrolytes without significant abnormality. Lipase was 19. Patient was medicated with IV Zofran due to complaints of nausea. Given the patient's history as well as his physical examination, lethargy, and comorbidities, I do feel that the patient would benefit from hospitalization. The patient was hydrated here in the emergency department. He was medicated with ceftriaxone and Zofran. I discussed the case with Dr. Tavares, [facility] hospitalist physician. He did agree to see and evaluate the patient for admission. Please see hospitalist dictation regarding ongoing management care of this patient. Differential diagnosis includes Gastroenteritis, food borne illness, infections, appendicitis, diverticulitis, inflammatory bowel disease, obstruction, GI bleed, biliary pathology, volvulus, as well as other pathologies. I attest that I have personally reviewed the patient's current medication list. Patient was found to have normal blood pressure on screening and does not require follow-up. The chart was completed utilizing [employer] Speech voice recognition software. Grammatical errors, random word insertions, pronoun errors, and incomplete sentences are an occasional consequence of this system due to software limitations, ambient noise, and hardware issues. Any formal questions or concerns about the content, text, or information contained within the body of this dictation should be directly addressed to the provider for clarification. Past Med/Surg History Medical History Diarrhea Acute dehydration Elevated lactic acid level Hypokalemia Salmonella enteritis Cardiac amyloidosis CAD (coronary artery disease) Nonobstructive GERD (gastroesophageal reflux disease) Atrial fibrillation Follows with [facility]/Tim SAUCEDO Low back problem BPH (benign prostatic hyperplasia) CKD (chronic kidney disease) Follows with [facility]/Dr. 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 Amaral [facility] Surgical History History of surgery vasectomy reversal History of surgery Urolift History of vascular access device Right chest port (type unknown) History of cataract surgery History of cardiac cath Right heart cath (2018) History of colonoscopy History of esophagogastroduodenoscopy (EGD) H/O vasectomy Family History Father No problems noted. Mother No problems noted. Other Adopted Social History Smoking Status: Current every day smoker Tobacco Type: Cigarettes Second Hand Exposure: No; Do You Dip or Chew Tobacco: No; Hx Alcohol Use: No Hx Substance Use: No Preferred Language: Polish Communication Ability: Effective Pole Cutter Required: No Beliefs That Will Affect Care: None marital status: marital status details: twice - 3 children in total between the 2 marriages Current Living Situation: Spouse Current Living Situation Comment: lives in [place] current occupational status: disabled current occupation: previously worked at [employer] Feels Safe at Home: Yes Assistive Devices: Cane, CPAP and Oxygen - at Night Allergies Allergies Allergy/AdvReac Type Severity Reaction Status Date / Time NSAIDS (Non-Steroidal AdvReac Advised by Verified 08/26/23 14:53 Anti-Inflamma nephrology to avoid d/t CKD [id number] Reductase AdvReac Muscle Pain Verified 08/26/23 14:53 Inhibitor Home Meds Home Medications Medication Instructions Recorded Confirmed acyclovir 400 mg tablet 400 mg PO QPM 05/16/18 08/26/23 albuterol sulfate 90 mcg/actuation 2 puff inhalation Q6 PRN Cough or 05/16/18 08/26/23 aerosol inhaler (Ventolin HFA) SOB pantoprazole 20 mg tablet,delayed 20 mg PO QAM 09/02/20 08/26/23 release (Protonix) potassium chloride 10 mEq 10 meq PO QAM 09/02/20 08/26/23 tablet,extended release dapsone 25 mg tablet 25 mg PO QAM 02/26/22 08/26/23 evolocumab 140 mg/mL subcutaneous 140 mg subcut UD 02/26/22 08/26/23 pen injector (Sherry Doran) folic acid 400 mcg tablet 400 mcg PO QAM 02/26/22 08/26/23 finasteride 5 mg tablet 5 mg PO QAM 07/24/22 08/26/23 oxycodone 5 mg tablet 5 mg PO Q6H PRN Pain 07/24/22 08/26/23 trazodone 50 mg tablet 50 mg PO HS PRN Insomnia 07/24/22 08/26/23 dexamethasone 4 mg tablet 16 mg PO .TWICE A MONTH 05/02/23 08/26/23 duloxetine 20 mg capsule,delayed 40 mg PO QAM 05/02/23 08/26/23 release sprinkle icosapent ethyl 1 gram capsule 2 g PO BID 05/02/23 08/26/23 (Vascepa) immun glob G 4 gram/20 mL(20 0 ml subcut UD 05/02/23 08/26/23 %)-prol-IgA 0-50 mcg/mL subcutaneous soln (Hizentra) levothyroxine 50 mcg tablet 50 mcg PO QAM 05/02/23 08/26/23 Nss 0.9% W Daratumumab 16mg/Kg 1 dose IV .EVERY 14 DAYS 08/09/23 08/26/23 acetaminophen 325 mg tablet 325 mg PO UD 08/09/23 08/26/23 diphenhydramine HCl 50 mg capsule 50 mg PO UD 08/09/23 08/26/23 epinephrine 0.3 mg/0.3 mL 0.3 mg IM UD PRN severe reaction 08/09/23 08/26/23 injection, auto-injector (EpiPen) insulin glargine 100 unit/mL (3 10 unit subcut QPM 08/09/23 08/26/23 mL) subcutaneous pen (Lantus Solostar U-100 Insulin) metformin 500 mg tablet,extended 1,000 mg PO QAM 08/09/23 08/26/23 release 24 hr ondansetron HCl 8 mg tablet 8 mg PO Q8H PRN Nausea 08/09/23 08/26/23 tenofovir alafenamide 25 mg tablet 25 mg PO QAM 08/09/23 08/26/23 (Vemlidy) warfarin 2.5 mg tablet 0 mg PO DAILY 08/09/23 08/26/23 Previous Rx's Medication Instructions Recorded ondansetron 4 mg disintegrating 4 mg PO Q6H PRN nausea and 08/08/23 tablet vomiting #20 tabs L.acidop,casei,lactis,rham-B.lact,serenity 2 cap PO DAILY #30 caps 08/18/23 625 mg (10 billion cell) capsule (Advanced Probiotic) cholecalciferol (vitamin D3) 50 150 mcg (3 x 50 mcg (2,000 unit)) 08/18/23 mcg (2,000 unit) tablet (Vitamin PO QAM #90 tabs D3) magnesium chloride 64 mg 64 mg PO BID #60 tabs 08/18/23 (magnesium chloride) tablet,delayed release (Mag 64) enoxaparin 80 mg/0.8 mL 70 mg (0.7 mL) subcut Q12H #8 mL 08/28/23 subcutaneous syringe (Lovenox) midodrine 10 mg tablet 20 mg (2 x 10 mg) PO 08/28/23 TID@0800,1200,1700 #180 tabs torsemide 20 mg tablet See Rx Instructions .Route 08/28/23 .COMPLEX #30 tabs Results & Data (ED) Vital Signs Vital Signs - 24 hr 09/15/23 05:06 09/15/23 06:23 Temperature 37.3 C Temperature Source Skin Pulse Rate 96 H 90 Respiratory Rate 16 Respiratory Effort / Characteristics Non-Labored Respiratory Depth Normal Blood Pressure 128/76 Blood Pressure Mean 93 Pulse Oximetry 94 Oxygen Delivery Method Room Air Nasal Cannula Sepsis Recent Fever Within 48 Hours No Sepsis New/Unexplained Change in Mental Status No Sepsis Action Taken by Nursing No Action Required Laboratory Data 09/15/23 05:44 09/15/23 05:44 Lab Results 09/15/23 Range/Units 05:44 WBC 15.81 H (4.8-10.8) K/ul RBC 3.45 L (4.70-6.10) M/uL Hgb 11.1 L (14.0-18.0) g/dl Hct 33.2 L (42.0-52.0) % MCV 96.2 (80.0-100.0) fL MCH 32.2 (25.0-34.0) pg MCHC 33.4 (32.0-36.0) g/dL RDW Std Deviation 54.8 H (36.4-46.3) fL RDW Coeff of Tobi 15.4 H (11.5-14.5) % Plt Count 372 (130-400) K/uL MPV 9.9 (9.4-12.4) fL Immature Gran % (Auto) 0.6 % Neut % (Auto) 89.0 % Lymph % (Auto) 2.4 % [place] % (Auto) 6.8 % Eos % (Auto) 0.8 % Baso % (Auto) 0.4 % Neut # (Auto) 14.09 H (1.40-6.50) K/uL Lymph # (Auto) 0.38 L (1.20-3.40) K/uL [place] # (Auto) 1.07 H (0.11-0.59) K/uL Eos # (Auto) 0.12 (0.00-0.50) K/uL Baso # (Auto) 0.06 (0.00-0.20) K/uL Immature Gran # (Auto) 0.09 (0.01-0.20) K/uL Sodium 135 L (136-145) mmol/L Potassium 4.2 (3.5-5.1) mmol/L Chloride 102 (98-107) mmol/L Carbon Dioxide 23 (21-32) mmol/L Anion Gap 10 (3-11) BUN 16 (6-23) mg/dl Creatinine 1.43 H (0.6-1.4) mg/dl Est Cr Clr Drug Dosing 54.9 ml/min Est GFR ( Amer) 64.3 ml/min Est GFR (Non-Af Amer) 55.5 ml/min BUN/Creatinine Ratio 11.2 (10-20) Glucose 89 (70-99(Fasting)) mg/dl Calcium 9.6 (8.6-10.3) mg/dl Total Bilirubin 0.7 (0.2-1.0) mg/dl AST 14 (13-39) U/L ALT 8 (7-52) U/L Alkaline Phosphatase 101 (34-104) U/L Total Protein 5.9 L (6.0-8.3) gm/dl Albumin 3.7 (3.4-5.0) gm/dl Globulin 2.2 L (2.5-4.0) gm/dl Albumin/Globulin Ratio 1.7 (0.9-2) Lipase 19 (11-82) U/L Administered Medications Sodium Chloride (Nss) 1,000 mls @ 999 mls/hr IV .Q1H1M JOSE Stop: 09/15/23 06:30 Last Admin: 09/15/23 05:52 Dose: 999 mls/hr Documented By: DRE Discontinued Medications Ceftriaxone Sodium (Rocephin) 2,000 mg in 50 mls @ 100 mls/hr IV NOW STA Stop: 09/15/23 05:58 Last Infusion: 09/15/23 06:24 Dose: Infused Documented By: Admin: 09/15/23 05:51 Dose: 100 mls/hr Documented By: DRE Discharge Plan Visit Data Chief Complaint: Illness ED Provider: Jessica Galicia ED Midlevel Provider: Alcira Lopez Discharge Problem: Salmonella enteritis, Multiple myeloma, Diarrhea, Nausea & vomiting Patient Disposition: Admitted As Inpatient Forms Stand Alone Forms: My [facility] Prescriptions Prescriptions: No Action acyclovir 400 mg Tablet 400 mg PO QPM albuterol sulfate [Ventolin HFA] 90 mcg/actuation Hfa Aerosol Inhaler 2 puff INHALATION Q6 PRN (Reason: Cough or SOB) potassium chloride 10 mEq Tablet Extended Release 10 meq PO QAM pantoprazole [Protonix] 20 mg Tablet,Delayed Release (Dr/Ec) 20 mg PO QAM folic acid 400 mcg tablet 400 mcg PO QAM dapsone 25 mg tablet 25 mg PO QAM Repatha SureClick 140 mg/mL pen injector 140 mg SUBCUT UD Rx Instructions: q14d Hizentra 4 gram/20 mL (20 %) Solution 0 ml SUBCUT UD Rx Instructions: 2 gm and 4 gm doses weekly on fridays duloxetine 20 mg Capsule, Delayed Rel Sprinkle 40 mg PO QAM levothyroxine 50 mcg Tablet 50 mcg PO QAM dexamethasone 4 mg Tablet 16 mg PO .TWICE A MONTH Rx Instructions: takes on weeks he doesnt have chemo icosapent ethyl [Vascepa] 1 gram Capsule 2 g PO BID ondansetron 4 mg tablet,disintegrating 4 mg PO Q6H PRN (Reason: nausea and vomiting) Qty: 20 0RF finasteride 5 mg tablet 5 mg PO QAM oxycodone 5 mg tablet 5 mg PO Q6H PRN (Reason: Pain) trazodone 50 mg tablet 50 mg PO HS PRN (Reason: Insomnia) metformin 500 mg tablet extended release 24 hr 1,000 mg PO QAM insulin glargine [Lantus Solostar U-100 Insulin] 100 unit/mL (3 mL) insulin pen 10 unit SUBCUT QPM Vemlidy 25 mg tablet 25 mg PO QAM warfarin 2.5 mg tablet 0 mg PO DAILY Rx Instructions: Last INR was 6.3, so currently on hold. Original directions: 1.25mg by mouth once daily ondansetron HCl 8 mg Tablet 8 mg PO Q8H PRN (Reason: Nausea) diphenhydramine HCl 50 mg Capsule 50 mg PO UD Rx Instructions: take 50 mg by mouth 1 hour prior to Hizentra acetaminophen 325 mg tablet 325 mg PO UD Rx Instructions: take 325mg 1 hour prior to Hizentra Nss 0.9% W Daratumumab 16mg/Kg 1 dose IV .EVERY 14 DAYS epinephrine [EpiPen] 0.3 mg/0.3 mL Auto-Injector 0.3 mg IM UD PRN (Reason: severe reaction) Advanced Probiotic 625 mg (10 billion cell) Capsule 2 cap PO DAILY Qty: 30 0RF Mag 64 64 mg Tablet,Delayed Release (Dr/Ec) 64 mg PO BID Qty: 60 0RF cholecalciferol (vitamin D3) [Vitamin D3] 50 mcg (2,000 unit) Tablet 150 mcg PO QAM Qty: 90 0RF Rx Instructions: Please take 3 tabs (6000 U daily Vit D) due to severe vitamin D deficiency, follow up with PCP midodrine 10 mg Tablet 20 mg PO TID@0800,1200,1700 Qty: 180 0RF torsemide 20 mg tablet See Rx Instructions .ROUTE .COMPLEX Qty: 30 0RF Rx Instructions: Take 20mg by mouth every other day. Take twice the dose (40mg) on the days you have chemotherapy. enoxaparin [Lovenox] 80 mg/0.8 mL Syringe 70 mg subcut Q12H Qty: 8 0RF Referrals Referrals: Jaime Garcia MD [Primary Care Provider] -
--- NOTE | 2023-09-15 08:23 | History & Physical Report ---
"Date of Service September 15, 2023 Assessment & Plan (1) Salmonella enteritis: Plan: 53-year-old male with past med history significant for type 2 diabetes, hyperlipidemia, obstructive sleep apnea, paroxysmal atrial fibrillation, cardiac amyloidosis, chronic heart failure with preserved ejection fraction, nonocclusive coronary disease, CKD stage III, congenital solitary right kidney, BPH, peripheral neuropathic pain, chemotherapy-induced neuropathy, degeneration of lumbosacral sacral disc, multiple myeloma without remission, statin intolerance comes because of diarrhea. Patient was admitted last week of July with diarrhea and electrolyte abnormalities and the stool studies showed Salmonella. Initially treated with fluoroquinolones but had prolonged QT so was discharged on Bactrim. Again admitted in August 26, 2023 with hypotension and ARSENIO. His midodrine was increased to 20 mg 3 times daily. He did okay and was discharged on August 28. Since a day prior to new year patient developed diarrhea. Initially it was mild. But progressively got worse. Outpatient stool studies again showing Salmonella. Last night he had several episodes of loose stools about 13 times. Patient somewhat restless. in the room. Patient denies any headache. No chest pain. No shortness of breath. No cough. No fevers. Saturating okay. Appetite is down. Currently blood pressure is okay. Salmonella enteritis Recurrent Having several episodes of diarrhea IV fluids IV Rocephin 2 g twice daily Hold diuretics with potassium supplements Consult ID close monitor Type 2 diabetes currently on clear liquid diet Cut back on Lantus to 5 units daily as patient is having poor appetite Insulin sliding scale Will monitor Obstructive sleep apnea CPAP nightly CKD stage III Baseline creatinine 1.7 today creatinine 1.4 Will follow labs History of chronic heart failure with reduced ejection fraction Cardiac amyloidosis EF of 42% echo in February 2023 Holding torsemide and potassium supplement Getting fluids Monitor for volume overload History of hypotension on Midodrine History of multiple myeloma Chemo as per heme-onc On dapsone, acyclovir and tenofovir History of A-fib On Coumadin amiodarone stopped Will follow PT/INR Hypothyroidism On Synthyroid History of nonocclusive CAD On Coumadin and Repatha BPH Proscar GERD Protonix DVT prophylaxis on Coumadin Follow PT/INR Disposition Med/tele Full code as per my discussion with the and the patient. request to call her if any change in medical condition. 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 [employer] History of Present Illness Chief Complaint: Diarrhea Primary Care Provider: Jaime Garcia MD 53-year-old male with past med history significant for type 2 diabetes, hyperlipidemia, obstructive sleep apnea, paroxysmal atrial fibrillation, cardiac amyloidosis, chronic heart failure with preserved ejection fraction, nonocclusive coronary disease, CKD stage III, congenital solitary right kidney, BPH, peripheral neuropathic pain, chemotherapy-induced neuropathy, degeneration of lumbosacral sacral disc, multiple myeloma without remission, statin intolerance comes because of diarrhea. Patient was admitted last week of July with diarrhea and electrolyte abnormalities and the stool studies showed Salmonella. Initially treated with fluoroquinolones but had prolonged QT so was discharged on Bactrim. Again admitted in August 26, 2023 with hypotension and ARSENIO. His midodrine was increased to 20 mg 3 times daily. He did okay and was discharged on August 28. Since a day prior to new year patient developed diarrhea. Initially it was mild. But progressively got worse . Outpatient stool studies again showing Salmonella. Last night he had several episodes of loose stools about 13 times. Patient somewhat restless. in the room. Patient denies any headache. No chest pain. No shortness of breath. No cough. No fevers. Saturating okay. Appetite is down. Currently blood pressure is okay. Past medical history. As mentioned above Past surgical history. Colonoscopy. Cystourethroscopy with plans prostatic implant. EGD. EGD with endoscopic ultrasound. S/p autologous stem cell transplantation 2014. Bilateral cataract surgery. Vasectomy. Social history. . No smoking. Alcohol rarely. No drug use. Family history. No family history on file. Allergies Allergy/AdvReac Type Severity Reaction Status Date / Time NSAIDS (Non-Steroidal AdvReac Advised by Verified 08/26/23 14:53 Anti-Inflamma nephrology to avoid d/t CKD [id number]-MlT Reductase AdvReac Muscle Pain Verified 08/26/23 14:53 Inhibitor Home Medications Medication Instructions Recorded Confirmed Type acyclovir 400 mg tablet 400 mg PO DAILY 09/15/23 09/15/23 History albuterol 90 mcg/actuation aerosol 2 mcg inhalation Q4H PRN Shortness 09/15/23 09/15/23 History inhaler Of Breath Or Wheezing cholecalciferol (vitamin D3) 50 2,000 unit PO DAILY 09/15/23 09/15/23 History mcg (2,000 unit) capsule (Vitamin D3) dapsone 25 mg tablet 25 mg PO DAILY 09/15/23 09/15/23 History dexamethasone 4 mg tablet 20 mg PO UD 09/15/23 09/15/23 History duloxetine 20 mg capsule,delayed 40 mg PO DAILY 09/15/23 09/15/23 History release evolocumab 140 mg/mL subcutaneous 140 mg subcut UD 09/15/23 09/15/23 History pen injector (Sherry Doran) finasteride 5 mg tablet 5 mg PO DAILY 09/15/23 09/15/23 History folic acid 400 mcg tablet 400 mcg PO DAILY 09/15/23 09/15/23 History icosapent ethyl 1 gram capsule 2 g PO BID 09/15/23 09/15/23 History insulin glargine 100 unit/mL (3 10 unit subcut DAILY 09/15/23 09/15/23 History mL) subcutaneous pen (Lantus Solostar U-100 Insulin) levothyroxine 50 mcg tablet 50 mcg PO DAILY 09/15/23 09/15/23 History magnesium chloride 64 mg 64 mg PO BID 09/15/23 09/15/23 History (magnesium chloride) tablet,delayed release (Mag 64) metformin 500 mg tablet,extended 1,000 mg PO DAILY 09/15/23 09/15/23 History release 24 hr midodrine 10 mg tablet 20 mg PO TID 09/15/23 09/15/23 History nystatin 100,000 unit/mL oral 5 ml PO QID 09/15/23 09/15/23 History suspension ondansetron HCl 8 mg tablet 8 mg PO TID PRN Nausea And Vomiting 09/15/23 09/15/23 History oxycodone 5 mg tablet 5 mg PO Q4H PRN Pain 09/15/23 09/15/23 History pantoprazole 20 mg tablet,delayed 20 mg PO DAILY 09/15/23 09/15/23 History release potassium chloride 10 mEq 10 meq PO DAILY 09/15/23 09/15/23 History tablet,extended release tenofovir alafenamide 25 mg tablet 25 mg PO DAILY 09/15/23 09/15/23 History (Vemlidy) torsemide 20 mg tablet 20 mg PO DAILY 09/15/23 09/15/23 History warfarin 2.5 mg tablet 1.25 mg PO DAILY 09/15/23 09/15/23 History Past Med/Surg History Medical History Diarrhea Acute dehydration Elevated lactic acid level Hypokalemia Salmonella enteritis Cardiac amyloidosis CAD (coronary artery disease) Nonobstructive GERD (gastroesophageal reflux disease) Atrial fibrillation Follows with [facility]/Tim SAUCEDO Low back problem BPH (benign prostatic hyperplasia) CKD (chronic kidney disease) Follows with [facility]/Dr. 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 Amaral [facility] Surgical History History of surgery vasectomy reversal History of surgery Urolift History of vascular access device Right chest port (type unknown) History of cataract surgery History of cardiac cath Right heart cath (2018) History of colonoscopy History of esophagogastroduodenoscopy (EGD) H/O vasectomy Family History Father No problems noted. Mother No problems noted. Other Adopted Social History Smoking Status: Current every day smoker Tobacco Type: Cigarettes Second Hand Exposure: No; Do You Dip or Chew Tobacco: No; Hx Alcohol Use: No Hx Substance Use: No Preferred Language: Cape Verdean Communication Ability: Effective Clean Up Helper Banquet Required: No Beliefs That Will Affect Care: None marital status: marital status details: twice - 3 children in total between the 2 marriages Current Living Situation: Spouse Current Living Situation Comment: lives in [place] current occupational status: disabled current occupation: previously worked at [employer] Feels Safe at Home: Yes Assistive Devices: Cane, CPAP and Oxygen - at Night Review of Systems Review of Systems: All systems reviewed & are unremarkable except as noted in HPI & below Physical Exam Physical Exam: General- somewhat restless Head- atraumatic Eyes- PERRL. ENT- oropharynx clear Neck- supple, no JVD. Lungs- clear to auscultation no wheezing or crackles. Heart- regular rhythm; no murmur, no gallop. Abdomen- normal bowel sounds, soft, nontender, no distension Extremities- no pretibial edema, no erythema seen Neuro- alert, oriented x 3; PERRL, no facial palsy; no dysarthria; moves extremities. Skin- warm & dry Results & Data Results & Data Vital Signs (Past 12 Hours) Vital Signs Temp Pulse Pulse Resp BP BP Pulse Ox 09/15/23 07:01 93 H 24 97/71 L 97 09/15/23 06:30 91 H 29 H 113/62 09/15/23 06:29 91 H 18 113/62 94 09/15/23 06:23 90 09/15/23 05:06 37.3 C 96 H 16 128/76 94 O2 Del Method 09/15/23 07:01 Room Air 09/15/23 06:30 09/15/23 06:29 Room Air 09/15/23 06:23 09/15/23 05:06 Room Air, Nasal Cannula Diagnostic Findings Laboratory Results WBC 15.81 K/ul (4.8-10.8) H 09/15/23 05:44 RBC 3.45 M/uL (4.70-6.10) L 09/15/23 05:44 Hgb 11.1 g/dl (14.0-18.0) L 09/15/23 05:44 Hct 33.2 % (42.0-52.0) L 09/15/23 05:44 MCV 96.2 fL (80.0-100.0) 09/15/23 05:44 MCH 32.2 pg (25.0-34.0) 09/15/23 05:44 MCHC 33.4 g/dL (32.0-36.0) 09/15/23 05:44 RDW Std Deviation 54.8 fL (36.4-46.3) H 09/15/23 05:44 RDW Coeff of Tobi 15.4 % (11.5-14.5) H 09/15/23 05:44 Plt Count 372 K/uL (130-400) 09/15/23 05:44 MPV 9.9 fL (9.4-12.4) 09/15/23 05:44 Immature Gran % (Auto) 0.6 % 09/15/23 05:44 Neut % (Auto) 89.0 % 09/15/23 05:44 Lymph % (Auto) 2.4 % 09/15/23 05:44 Hooker % (Auto) 6.8 % 09/15/23 05:44 Eos % (Auto) 0.8 % 09/15/23 05:44 Baso % (Auto) 0.4 % 09/15/23 05:44 Neut # (Auto) 14.09 K/uL (1.40-6.50) H 09/15/23 05:44 Lymph # (Auto) 0.38 K/uL (1.20-3.40) L 09/15/23 05:44 Hooker # (Auto) 1.07 K/uL (0.11-0.59) H 09/15/23 05:44 Eos # (Auto) 0.12 K/uL (0.00-0.50) 09/15/23 05:44 Baso # (Auto) 0.06 K/uL (0.00-0.20) 09/15/23 05:44 Immature Gran # (Auto) 0.09 K/uL (0.01-0.20) 09/15/23 05:44 Sodium 135 mmol/L (136-145) L 09/15/23 05:44 Potassium 4.2 mmol/L (3.5-5.1) 09/15/23 05:44 Chloride 102 mmol/L (98-107) 09/15/23 05:44 Carbon Dioxide 23 mmol/L (21-32) 09/15/23 05:44 Anion Gap 10 (3-11) 09/15/23 05:44 BUN 16 mg/dl (6-23) 09/15/23 05:44 Creatinine 1.43 mg/dl (0.6-1.4) H 09/15/23 05:44 Est Cr Clr Drug Dosing 54.9 ml/min 09/15/23 05:44 Est GFR ( Amer) 64.3 ml/min 09/15/23 05:44 Est GFR (Non-Af Amer) 55.5 ml/min 09/15/23 05:44 BUN/Creatinine Ratio 11.2 (10-20) 09/15/23 05:44 Glucose 89 mg/dl (70-99(Fasting)) 09/15/23 05:44 Calcium 9.6 mg/dl (8.6-10.3) 09/15/23 05:44 Total Bilirubin 0.7 mg/dl (0.2-1.0) 09/15/23 05:44 AST 14 U/L (13-39) 09/15/23 05:44 ALT 8 U/L (7-52) 09/15/23 05:44 Alkaline Phosphatase 101 U/L (34-104) 09/15/23 05:44 Total Protein 5.9 gm/dl (6.0-8.3) L 09/15/23 05:44 Albumin 3.7 gm/dl (3.4-5.0) 09/15/23 05:44 Globulin 2.2 gm/dl (2.5-4.0) L 09/15/23 05:44 Albumin/Globulin Ratio 1.7 (0.9-2) 09/15/23 05:44 Lipase 19 U/L (11-82) 09/15/23 05:44 Code Status & VTE Plan VTE Prophylaxis Plan VTE Prophylaxis will be ordered: Yes"
[2023-09-15] MEDS: SODIUM CHLORIDE 0.9% 1,000 ML IV SCH ×2 (08:48→19:26)
[2023-09-15] MEDS ORDERED: GLUCOSE 10 TAB/TUBE PO PRN (09:11)
[2023-09-15] MEDS ORDERED: CARBOHYDRATES FOR HYPOGLYCEMIA PO PRN (09:11)
[2023-09-15] MEDS ORDERED: GLUCOSE 40% GEL 15 GM TUBE PO PRN (09:11)
[2023-09-15] MEDS ORDERED: NITROGLYCERIN SL 0.4 MG/TAB TAB SL PRN (09:11)
[2023-09-15] MEDS ORDERED: oxyCODONE HCL IR 5 MG TAB (IMMEDIATE RELEASE) PO PRN (09:11)
[2023-09-15] MEDS ORDERED: GLUCAGON FOR INJ 1 MG VIAL SQ PRN (09:11)
[2023-09-15] MEDS ORDERED: ONDANSETRON INJ 2 MG/ML 2 ML VIAL IV PRN (09:11)
[2023-09-15] MEDS ORDERED: DEXTROSE 50% 50 ML SYRINGE IV PRN (09:11)
[2023-09-15] MEDS ORDERED: ALBUTEROL HFA 8 GM INHALER INH PRN (09:17)
[2023-09-15] MEDS ORDERED: PANTOprazole 40 MG TAB PO SCH (09:30)
--- OUTSIDE RECORDS SUMMARY | 2023-09-15 10:00 | External Medical Summary | Summary of Care ---
Author Name Unknown Organization [facility] Address [address] [place] [address] Phone [phone] Care Team Providers Care Interlocking Installer Name Role Phone Jaime Garcia MD Primary Care Provide r Reason for Visit * Reason Comments Dosage Adjustment Via Phone (anticoag Cl inic) Diabetes Follow-Up Encounter Details Date Type Department Care Team (Late st Contact Info) Description 09/13/2023 3:30 PM [facility] Telemedicine Pharmacy, [address] [place] [phone] [place] [id number] Type 2 diabetes mellitus with stage 3b chronic kidney disease, without long-term current use of insulin ([facility])* Allergies Active Allergy Reactions Criticality Noted Date Comments Atorvastatin Muscle pain High 03/30/2019 Ezetimibe Muscle pain High 01/25/2020 documented as of this encounter (statuses as of 09/13/2023) Medications Medication Sig Dispensed Refills Start Date End Date Status NSS 0.9 % SOLN with daratumumab 400 MG/20ML SOLN 16 mg/kgIndications:e very 4 weeks Administer intravenously every 14 days. 0 Active CPAP every night at bedtime. 0 Active oxygen IN GAS Use 2 L/min(Oxygen) as directed at bedtime. 1 Each 0 11/11/2020 Active OneTouch Ultra Blue In Vitro Strip (Glucose Blood)Indications: Type 2 diabetes mellitus with hemoglobin A1c goal of less than 7.0% ([facility]) Use as directed daily. Test once daily DxE11.9 100 Strip 5 03/02/2021 Active LancetsIndications :Type 2 diabetes mellitus with hemoglobin A1c goal of less than 7.0% ([facility]) Test once daily DxE11.9. 100 Each 5 03/02/2021 Active Albuterol Sulfate HFA 108 (90 Base) MCG/ACT Inhalation Aerosol SolutionIndication s:Acute bronchitis, antibiotics not indicated Inhale 2 Puffs by mouth every 6 hours as needed for Cough or Shortness of Breath. 54 g 1 06/30/2021 Active Acyclovir 400 MG Oral Tablet (Zovirax)Indicatio ns:Lambda light chain myeloma ([facility]) Take one tablet once daily 180 Tablet 3 12/14/2021 Active Ondansetron HCl 8 MG Oral Tablet [...] to Hizentra. 30 Tablet 3 09/16/2022 Active EpiPen 2-Konstantin 0.3 MG/0.3ML Injection Solution Auto-injector For a severe reaction: Inject in outer thigh following instructions on package and go to the Emergency room. 2 Each 3 10/05/2022 Active Dexamethasone 4 MG Oral Tablet (Decadron)Indicati ons:Multiple myeloma not having achieved remission (HCC) 5 tabs 2 times monthly 10 Tablet 5 10/25/2022 Active Polyethylene Glycol 3350 17 GM Oral Packet Take 1 Packet by mouth daily as needed. 0 Active oxyCODONE-Acetamin ophen 5-325 MG Oral Tablet (Percocet) Take 1 Tablet by mouth every 6 hours as needed for Pain, Severe. 10 Tablet 0 03/17/2023 Active Levothyroxine Sodium 50 MCG Oral Tablet (Levoxyl) TAKE 1 TABLET BY MOUTH DAILY AT LEAST 30 MINUTES PRIOR TO FIRST MEAL OF THE DAY OR OTHER MEDICATIONS 90 Tablet 3 01/11/2023 01/11/20 24 Active Additional Information Patient taking differently: 50 mcg Oral [id number], Reported on 04/14/2023 Warfarin Sodium 2.5 MG Oral Tablet (Coumadin)Indicati ons:Atrial fibrillation, unspecified type (HCC),Anticoagulat ion management encounter,vp software support current use of anticoagulant therapy,Paroxysmal atrial fibrillation [...] 10 Tablet 5 10/27/2022 10/27/19 24 Active Additional Information Patient not taking.Reported on 09/02/2023 Finasteride 5 MG Oral Tablet (Proscar) TAKE [...] hemoglobin A1c goal of less than 7.0% ([facility]) Take 2 Tablets by mouth in the morning. 180 Tablet 1 07/11/2023 Active Insulin Glargine Solostar 100 UNIT/ML Subcutaneous Solution Pen-injector (Lantus SoloStar) Inject 10 Units under the skin every evening. 15 mL 3 07/19/2023 Active Additional Information Patient taking differently:10 Units Subcutaneous [id number],On hold until seen by MTM 09/14, Reported on 09/09/2023 Pen Moro 32G X 4 MM Use as directed. [...] breakthrough pain. 30 Tablet 0 08/18/2023 Active Magnesium Chloride 64 MG Oral Tablet Delayed Release (Mag64) Take 1 Tablet by mouth in the morning and 1 Tablet before bedtime. 0 Active Folic Acid 400 MCG Oral TabletIndications: Low folate TAKE ONE TABLET BY MOUTH IN THE MORNING 90 Tablet 1 08/27/2023 08/26/20 24 Active Pantoprazole Sodium 20 MG Oral Tablet Delayed Release (Protonix)Indicati ons:Gastroesophage al reflux disease without esophagitis TAKE ONE TABLET BY MOUTH EVERY DAY IN THE MORNING 90 Tablet 2 08/31/2023 08/30/20 24 Active Dexcom G7 SensorIndications: Type 2 diabetes mellitus with stage 3b chronic kidney disease, without long-term current use of insulin (HCC) Use as directed to check blood sugars daily. Change every 10 days 9 Each 3 09/01/2023 Active Midodrine HCl 10 MG Oral Tablet (Proamatine)Indica tions:takes 1-3 tabs depending on bp as needed Take 2 tablet shortly before or upon rising in the morning, at midday, and in the late afternoon (not later than 6 PM) 600 Tablet 3 09/02/2023 Active Torsemide 10 MG Oral Tablet (Demadex)Indicatio ns:takes extra tab for swelling, wt gain Take 1 Tablet by mouth in the morning every other day. 100 Tablet 3 09/02/2023 Active Additional Information Patient taking differently:10 mg Oral Daily(AM),2 tabs daily, Indications: takes extra tab for swelling, wt gain, Reported on 09/09/2023 Potassium Chloride ER 10 MEQ Oral Tablet Extended ReleaseIndications :Chronic diastolic congestive heart failure (HCC) Take 1 Tablet by mouth in the morning. 100 Tablet 3 09/02/2023 Active Nystatin 415230 UNIT/ML Mouth/Throat SuspensionIndicati ons:Multiple myeloma in relapse (HCC) Swish and swallow 5 mL in the morning and 5 mL at noon and 5 mL in the evening and 5 mL before bedtime. 60 mL 1 09/08/2023 Active Vemlidy 25 MG Oral Tablet (Tenofovir Alafenamide Fumarate) Take 1 tablet by mouth in the morning. 90 Tablet 1 09/09/2023 Active documented as of this encounter (statuses as of 09/13/2023) Active Problems Problem Noted Date Diagnosed Date [...] myeloma without remission 06/14/2014 Overview: Dr Rodriges/ [facility] ADVANCE DIRECTIVE INFORMATION 10/13/2006 Overview: No, Advance Directive brochure offered , patient declined. Degeneration of lumbosacral intervertebral disc 02/19/2005 documented as of this encounter (statuses as of 09/13/2023) Resolved Problems Problem Noted Date Diagnosed Date [...] as of this encounter (statuses as of 09/13/2023) Immunizations Name Administration Dates Next Due COVID-19, [...] this encounter Progress Notes * Barbara Jiménez, [facility] - 09/13/2023 3:41 PM EST Images from the original note were not included. Diabetes Telephone Follow - Up 09/13/2023 Patient Phone Numbers Attempted to contact patient, no answer. Left message to return call to clinic. - Reason for contacting patient: BG Check in/Dexcom review - Current Diabetic Medications: Metformin ER 500mg - 2 tablets daily HOLD Lantus 10 units daily eGFR 62 as of 06/27/23 - Glucose review/ SMBG: Therapy Management Assessment/Plan: 1) Diabetes:Overall BG readings remaining stable off of Lantus. Hypoglycemia has improved. Attempted to contact patient to review, no answer. ACC OFS scheduled for tomorrow, will plan to scheduled DMf/u at that time. Medication Changes:n/a Diabetic Medications: Metformin ER 500mg - 2 tablets daily HOLD Lantus 10 units daily eGFR 62 as of 06/27/23 Barbara Jiménez RPh, Pharm D Clinical Pharmacist Medication Therapy Management Clinic 09/13/2023, 3:41 PM documented in this encounter Plan of Treatment Upcoming Encounters Date Type Department Care Team (Late st Contact Info) Description 09/14/2023 8:50 AM EST Anticoagulation Pharmacy, [address] [place] [phone] [place] [phone] 10/11/2023 1:00 PM EST [facility]medicine [facility] [address] [facility] [place] [address] Rosalio Amaral MD [address] [facility] [place] [address] 10/24/2023 1:30 PM EST Office Visit Urology, [facility] [address] [facility] [place] [address] Devyn Paniagua MD [address] [facility] [address] [place] [address] 10/25/2023 2:30 PM EST Home Visit [facility] [address] [address] Sulma Seth RN [address] [place] [address] 11/10/2023 9:00 AM EST Office Visit [facility] Tyree Jordan [address] [place] [address] Rosalio Amaral MD [address] [place] [address] 11/23/2023 9:40 AM EDT Office Visit Nephrology, [facility] [place] [address] [place] [address] Armando Cook MD [address] [place] [address] 12/09/2023 3:30 PM EDT Office Visit [facility] Tyree Jordan [address] [place] [address] Rosalio Amaral MD [address] [place] [address] 12/15/2023 8:30 AM EDT Office Visit Cardiology, [facility] [address] [place] [address] Beth Gibbs CRNP [address] [place] [address] 03/08/2024 9:00 AM EDT Office Visit Cardiology [address] [place] [address] Tim Ruiz PA-C [address] [place] [address] Health Maintenance Due Date Last Done Comments HIV Screening 1985 Hepatitis C Screening 01/29/1988 Cologuard 2015 Fecal Occult Blood Test 2015 Sigmoidoscopy 2015 COVID-19 Vaccine (3 - Pfizer risk series) 11/03/2021 10/06/2021, 06/23/2021 Depression Screening 01/05/2022 01/05/2021 Diabetic Foot Exam 12/14/2022 12/14/2021, 0 10/15/2020, 06/25/2019 HbA1c 01/05/2024 07/06/2023, 08/0 11/2022, 03/29/2023, Additional history exists GFR 03/09/2024 09/08/2023, 08/12, 08/16/2023, Additional history exists Pneumococcal Vaccine: Pediatrics (0 to 5 Years) and At-Risk Patients (6 to 64 Years) (3 - PPSV23 or PCV20) 05/22/2024 05/13/2020, 05/22/2019 Diabetic Eye Exam 07/11/2024 07/11/2023, , 06/29/2021, Additional history exists TSH 07/25/2024 07/25/2023, 03/12, 01/31/2023, Additional history exists CKD PHOS USE SMARTSET 75560 08/16/2024 12/0 01/2023, 07/25/2023, 07/06/2023, Additional history exists Albumin/Creatinine Ratio 09/08/2024 023, 06/22/2023, 05/27/2023, Additional history exists CKD HGB USE SMARTSET 83482 09/08/202409/08, 09/08/2023, 08/16/2023, Additional history exists DTaP,Tdap,and Td Vaccines (2 [...] this encounter Medical Devices Implanted Type Area Managing Manager Device Identifier Shelf Expiration Date Model / Serial / Lot Port Power Mri W/8fr Cath - [id number] Implanted:Qty: 1 on 09/26/2020 by Simone Michelle MD at [facility] Right: Chest CR BARD : PERIPHERAL VASCULAR 10/12/2021 [id number] / / [id number] Description:right IJ Lens Intraoc 19.0 - [id number] - [id number] Implanted:Qty: 1 on 02/03/2021 by Chris Sexton MD at OR [facility] Right: Eye [employer] 09/11/2025 [id number] / [id number] / Lens Intraoc 19.0 - [id number] - [id number] Implanted:Qty: 1 on 02/24/2021 by Chris Sexton MD at OR [facility] Left: Eye [employer] 10/12/2025 [id number] / [id number] / [id number] System Urolift - [id number] Implanted:Qty: 3 on 03/17/2023 by Devyn Paniagua MD at OR [facility] N/A: Urethra [employer] 11/03/2023 [id number] / / [id number] documented as of this encounter Visit Diagnoses Diagnosis Type 2 diabetes mellitus with stage 3b chronic kidney disease, without long-term current use of insulin (HCC)- Primary documented in this encounter Advance Directives Latest [...] and were consensually agreed upon. Care Teams Interlocking Installer Relationship Specialty Start Date End Date Jaime Garcia MD [address] [place] [address] [place] [address] PCP - General Family Medicine 10/15/20 documented as of this encounter
--- OUTSIDE RECORDS SUMMARY | 2023-09-15 10:00 | External Medical Summary | Summary of Care ---
Author Name Unknown Organization [facility] Address [address] [place] [address] Phone [phone] Care Team Providers Care Golf Sales Associate Name Role Phone Jaime Garcia MD Primary Care Provide r Reason for Visit * Reason Comments Outpatient Testing Encounter Details Date Type Department Care Team (Late st Contact Info) Description 09/14/2023 9:20 AM EST Laboratory Laboratory [address] [place] [phone] , Specimen Drop Off [address] [place] [address] Cardiac amyloidosis (HCC); Chronic diastolic congestive heart failure (HCC); Coronary artery disease involving 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 Test once daily DxE11.9 100 Strip 5 03/02/2021 Active LancetsIndications :Type 2 diabetes mellitus with hemoglobin A1c goal of less than 7.0% ([facility]) Test once daily DxE11.9. 100 [...] once daily 180 Tablet 3 12/14/2021 Active Prochlorperazine Maleate 10 MG Oral Tablet [...] Information Patient taking differently: 50 mcg Oral [id number], Reported on 04/14/2023 Warfarin Sodium 2.5 MG Oral Tablet (Coumadin)Indicati ons:Atrial fibrillation, unspecified type (HCC),Anticoagulat ion management encounter,care home current use of anticoagulant therapy,Paroxysmal atrial fibrillation [...] hemoglobin A1c goal of less than 7.0% ([facility]) Take 2 Tablets by mouth in the morning. 180 Tablet 1 07/11/2023 Active Insulin Glargine Solostar 100 UNIT/ML Subcutaneous Solution Pen-injector (Lantus SoloStar) Inject 10 Units under the skin every evening. 15 mL 3 07/19/2023 Active Additional Information Patient taking differently:10 Units Subcutaneous [id number],On hold until seen by MTM 09/14, Reported on 09/09/2023 Pen Hart 32G X 4 MM Use as directed. [...] morning. 100 Tablet 3 09/02/2023 Active Nystatin 040520 UNIT/ML Mouth/Throat SuspensionIndicati ons:Multiple myeloma in relapse (HCC) Swish and swallow 5 mL in the morning and 5 mL at noon and 5 mL in the evening and 5 mL before bedtime. 60 mL 1 09/08/2023 Active Vemlidy 25 MG Oral Tablet (Tenofovir Alafenamide Fumarate) Take 1 tablet by mouth in the morning. 90 Tablet 1 09/09/2023 Active Ondansetron HCl 8 MG Oral Tablet (Zofran)Indication s:Nausea Take 1 Tablet by mouth every 8 hours as needed for Nausea. 30 Tablet 3 09/14/2023 Active documented as of this encounter (statuses as of 09/14/2023) Active Problems Problem Noted Date Diagnosed Date [...] myeloma without remission 06/14/2014 Overview: Dr Rodriges/ [facility] ADVANCE DIRECTIVE INFORMATION 10/13/2006 Overview: No, Advance Directive brochure offered , patient declined. Degeneration of lumbosacral intervertebral disc 02/19/2005 documented as of this encounter (statuses as of 09/14/2023) Resolved Problems Problem Noted Date Diagnosed Date [...] as of this encounter (statuses as of 09/14/2023) Immunizations Name Administration Dates Next Due COVID-19, [...] Care Team (Late st Contact Info) Description 09/28/2023 11:30 AM EST Anticoagulation Pharmacy, [address] [place] [address] [place] [address] 09/28/2023 11:40 AM EST Pharmacy Pharmacy, [address] [place] [address] [place] [address] 10/11/2023 1:00 PM EST Telemedicine [facility] Tyree GUARTE [address] [facility] [place] [address] Rosalio Amaral MD [address] [facility] [place] [address] 10/24/2023 1:30 PM EST Office Visit Urology, [facility] [address] [place] [address] Devyn Paniagua MD [address] [facility] [address] [place] [address] 10/25/2023 2:30 PM EST Home Visit [facility], [facility] [address] [place] [place] [address] Sulma Seth RN [address] [place] [address] 11/10/2023 9:00 AM EST Office Visit [facility] Tyree UGARTE [address] [facility] [place] [address] Rosalio Amaral MD [address] [place] [address] 11/23/2023 9:40 AM EDT Office Visit Nephrology, Carla Renae [address] [facility] [place] [address] Armando Cook MD [address] [place] [address] 12/09/2023 3:30 PM EDT Office Visit [facility] Tyree UGARTE [address] [place] [address] Rosalio Amaral MD [address] [place] [address] 12/15/2023 8:30 AM EDT Office Visit Cardiology, [facility] [address] [place] [address] Beth Gibbs CRNP [address] [place] [address] 03/08/2024 9:00 AM EDT Office Visit Cardiology [address] [place] [address] Tim Ruiz PA-C [address] [place] [address] Pending Results Name Type Priority Associated Diagnoses Date /Time GASTROINTESTINAL PATHOGEN PANEL, STOOL Lab Routine Cardiac amyloidosis (HCC) Chronic diastolic congestive heart failure (HCC) Coronary artery disease involving 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 PAF (paroxysmal atrial fibrillation) ([facility]) Hyperlipidemia with target LDL less than 70 Dyslipidemia, goal LDL below 70 Autonomic orthostatic hypotension Chronic heart failure with preserved ejection fraction (HCC) Vomiting and diarrhea 09/14/2023 9:19 AM EST GASTROINTESTINAL PATHOGEN PANEL PCR Lab Routine Cardiac amyloidosis (HCC) Chronic diastolic congestive heart failure (HCC) Coronary artery disease involving 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 PAF (paroxysmal atrial fibrillation) (HCC) Hyperlipidemia with target LDL less than 70 Dyslipidemia, goal LDL below 70 Autonomic orthostatic hypotension Chronic heart failure with preserved ejection fraction (HCC) Vomiting and diarrhea 09/14/2023 9:19 AM EST GASTROINTESTINAL PATHOGEN PANEL CULTURE Lab Routine Cardiac amyloidosis (HCC) Chronic diastolic congestive heart failure (HCC) Coronary artery disease involving 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 PAF (paroxysmal atrial fibrillation) (HCC) Hyperlipidemia with target LDL less than 70 Dyslipidemia, goal LDL below 70 Autonomic orthostatic hypotension Chronic heart failure with preserved ejection fraction (HCC) Vomiting and diarrhea 09/14/2023 9:19 AM EST CLOSTRIDIUM DIFFICILE, PCR Lab Routine Cardiac amyloidosis (HCC) Chronic diastolic congestive heart failure (HCC) Coronary artery disease involving 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 PAF (paroxysmal atrial fibrillation) (HCC) Hyperlipidemia with target LDL less than 70 Dyslipidemia, goal LDL below 70 Autonomic orthostatic hypotension Chronic heart failure with preserved ejection fraction (HCC) Vomiting and diarrhea 09/14/2023 9:19 AM EST Health Maintenance Due Date Last Done [...] Additional history exists CKD PHOS USE SMARTSET 61201 08/16/2024 12/0 01/2023, 07/25/2023, 07/06/2023, Additional history exists Albumin/Creatinine Ratio 09/08/202409/08/2 023, 06/22/2023, 05/27/2023, Additional history exists CKD HGB USE SMARTSET 10901 09/08/202409/08, 09/08/2023, 08/16/2023, Additional history exists DTaP,Tdap,and [...] this encounter Medical Devices Implanted Type Area Cat Scan Tech Device Identifier Shelf Expiration Date Model / Serial / Lot Port Power Mri W/8fr Cath - [id number] Implanted:Qty: 1 on 09/26/2020 by Simone Michelle MD at OR [facility] Right: Chest CR BARD : PERIPHERAL VASCULAR 10/12/2021 [id number] / / [id number] Description:right IJ Lens Intraoc 19.0 - [id number] - [id number] Implanted:Qty: 1 on 02/03/2021 by Chris Sexton MD at OR [facility] Right: Eye [employer] 09/11/2025 [id number] / [id number] / Lens Intraoc 19.0 - [id number] - [id number] Implanted:Qty: 1 on 02/24/2021 by Chris Se[place] MD at OR [facility] Left: Eye [employer]CH [employer] LOMB 10/12/2025 [id number] / [id number] / [id number] System Urolift - [id number] Implanted:Qty: 3 on 03/17/2023 by Devyn Paniagua MD at OR [facility] N/A: Urethra [employer] 11/03/2023 [id number] / / [id number] documented as of this encounter Visit Diagnoses Diagnosis Cardiac amyloidosis (HCC) Other amyloidosis Chronic diastolic congestive heart failure (HCC) Chronic diastolic heart failure 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 difficile Rule-Out 09/14/2023 09/14/2023 documented as of this encounter Advance Directives [...] and were consensually agreed upon. Care Teams Golf Sales Associate Relationship Specialty Start Date End Date Jaime Garcia MD [address] [place] [address] [place] [address] PCP - General Family Medicine 10/15/20 documented as of this encounter
--- OUTSIDE RECORDS SUMMARY | 2023-09-15 10:00 | External Medical Summary | Summary of Care ---
Author Name Unknown Organization [facility] Address [address] [place] [address] Phone [phone] Care Team Providers Care Potter Or Ceramic Artist Name Role Phone Jaime Garcia MD Primary Care Provide r Reason for Visit * Reason Comments Dosage Adjustment In Person (Anticoag Cl inic) Encounter Details Date Type Department Care Team (Latest Contact Info) Description 09/14/2023 8:50 AM EST Anticoagulation Pharmacy, [address] [place] [phone] [place] [address] PAF (paroxysmal atrial fibrillation) (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) Take one tablet once daily 180 Tablet [...] Information Patient taking differently: 50 mcg Oral [id number], Reported on 04/14/2023 Warfarin Sodium 2.5 MG Oral Tablet (Coumadin)Indicati ons:Atrial fibrillation, unspecified type (HCC),Anticoagulat ion management encounter,custodial current use of anticoagulant therapy,Paroxysmal atrial fibrillation [...] Additional Information Patient taking differently:10 Units Subcutaneous [id number],On hold until seen by MTM 09/14, Reported on 09/09/2023 Pen Corona 32G X 4 MM Use as directed. [...] morning. 100 Tablet 3 09/02/2023 Active Nystatin 762239 UNIT/ML Mouth/Throat SuspensionIndicati ons:Multiple myeloma in relapse [...] Progress Notes * Barbara Jiménez, [facility] - 09/14/2023 9:03 AM EST Medication Therapy Disease Management - Anticoagulation Patient: Jerardo Ochoa Jr. | : 1970 Subjective Patient-Reported Symptoms: Patient Findings Negatives: Signs/symptoms of thrombosis, Signs/symptoms of bleeding, Change in health, Change in alcohol use, Change in activity, Upcoming invasive procedure, Missed doses, Extra doses, Change in medications, Change in diet/appetite, Bruising Objective Current Warfarin Dose As of 09/14/2023 Warfarin maintenance plan: 1.25 mg (2.5 mg x 0.5) every day INR Result As of 09/14/2023 INR goal: 2.0-3.0 INR used for dosin.0 (09/14/2023) Assessment & Plan Warfarin Plan As of 09/14/2023 Full warfarin instructions: 1.25 mg every day No change documented: Barbara Jiménez RPh Next INR check: 09/28/2023 Repeat PT/INR in 2 week(s) Weekly dose: not changed Additional Dosing Information: Description AMIO start 10/29/22 - 11/22/22 BID then QD after AMIO STOPPED 05/31 Barbara Jiménez RPh Clinical Pharmacist 09/14/2023, 9:03 AM documented in this encounter Plan of Treatment Upcoming Encounters Date Type Department Care Team (Late st Contact Info) Description 09/28/2023 11:30 AM EST Anticoagulation Pharmacy, [address] [place] [phone] [place] [address] 09/28/2023 11:40 AM EST Pharmacy Pharmacy, [address] [place] [address] [place] [address] 10/11/2023 1:00 PM EST Telemedicine [facility] Tyree UGARTE [address] [facility] [place] [address] Rosalio Amaral MD [address] [facility] [place] [address] 10/24/2023 1:30 PM EST Office Visit Urology, [facility] [place] [address] Devyn Paniagua MD [address] [facility] [address] [place] [address] 10/25/2023 2:30 PM EST [facility] Visit [facility], [facility] [place] [address] Sulma Seth, BOBBY [address] [place] [address] 11/10/2023 9:00 AM EST [facility] [address] [facility] [place] [address] Rosalio Amaral MD [address] [facility] [facility] [place] [address] 11/23/2023 9:40 AM EDT Office Visit Nephrology, [facility] [address] [facility] [address] Armando Cook MD [address] [facility] [address] 12/09/2023 3:30 PM EDT [facility] [address] [place] [address] Rosalio Amaral MD [address] [place] [address] 12/15/2023 8:30 AM EDT Office Visit Cardiology, [facility] [address] [facility] [place] [address] Beth Gibbs CRNP [address] [place] [address] 03/08/2024 9:00 AM EDT Office Visit Cardiology [address] [place] [address] Tim Ruiz PA-C [address] [place] [address] Health Maintenance Due Date Last Done Comments [...] Additional history exists CKD PHOS USE SMARTSET 07868 08/16/2024 12/0 01/2023, 07/25/2023, 07/06/2023, Additional history exists Albumin/Creatinine Ratio 09/08/202409/08/2 023, 06/22/2023, 05/27/2023, Additional history exists CKD HGB USE SMARTSET 65731 09/08/202409/08, 09/08/2023, 08/16/2023, Additional history exists DTaP,Tdap,and [...] this encounter Medical Devices Implanted Type Area Studio Potter Device Identifier Shelf Expiration Date Model / Serial / Lot Port Power Mri W/8fr Cath - [id number] Implanted:Qty: 1 on 09/26/2020 by Simone Michelle MD at OR [facility] Right: Chest CR BARD : PERIPHERAL VASCULAR 10/12/2021 [id number] / / [id number] Description:right IJ Lens Intraoc 19.0 - [id number] - [id number] Implanted:Qty: 1 on 02/03/2021 by Chris Se[place] MD at OR [facility] Right: Eye [employer] 09/11/2025 [id number] / [id number] / Lens Intraoc 19.0 - [id number] - [id number] Implanted:Qty: 1 on 02/24/2021 by Chris Se[place] MD at OR [facility] Left: Eye [employer]OM[employer] 10/12/2025 [id number] / [id number] / [id number] System Urolift - [id number] Implanted:Qty: 3 on 03/17/2023 by Devyn Paniagua MD at OR [facility] N/A: Urethra [employer] 11/03/2023 [id number] / / [id number] documented as of this encounter Procedures Procedure Name Priority Date/Time Associated Diagnosis Comments INR FINGERSTICK, POINT OF CARE STAT 09/14/2023 9:08 AM EST PAF (paroxysmal atrial fibrillation) (HCC) Anticoagulation management encounter 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 documented in this encounter Results * INR FINGERSTICK, POINT OF CARE (09/14/2023 9:08 AM EST) Fingerstick INR 2.0 INR 9:16 AM EST [facility]00 Blood 09/14/2023 9:08 AM EST 09/14/2023 9:16 AM EST Narrative [facility] - 09/14/2023 9:16 AM EST Therapeutic ranges for non-operative patients: Prophylaxsis/treatment of DVT: (Range:2.0-3.0) Treatment of pulmonary embolism:(Range:2.0-3.0) Prevention of systemic embolism from: -tissue heart valves -acute myocardial infarction -valvular heart disease -atrial fibrillation (Range: 2.0-3.0) Mechanical prosthetic valves: (Range: 2.5-3.5) Barbara Jiménez [facility] LAB POINT OF CARE TEST DOCKED DEVICE UNSOLICITED RESULTS [facility] [place] [address] documented in this encounter Visit Diagnoses Diagnosis PAF (paroxysmal atrial fibrillation) (HCC)- Primary Atrial fibrillation Anticoagulation management encounter Encounter for therapeutic drug monitoring custodial current use of anticoagulant therapy documented in this encounter Advance Directives Latest [...] and were consensually agreed upon. Care Teams Potter Or Ceramic Artist Relationship Specialty Start Date End Date Jaime Garcia MD [address] [place] [address] [place] [address] PCP - General Family Medicine 10/15/20 documented as of this encounter"
--- OUTSIDE RECORDS SUMMARY | 2023-09-15 10:00 | External Medical Summary | Summary of Care ---
Author Name Unknown Organization [facility] Address [address] [place] [address] Phone [phone] Care Team Providers Care Technical Service Representative Name Role Phone Jaime Garcia MD Primary Care Provide r Encounter Details Date Type Department Care Team (Late st Contact Info) Description 09/08/2023 12:30 PM EST Nurse Only Ancillary Hematology/Oncology [facility] [place] [address] [place] [address] Center, [facility] Nurse Cancer [address] [place] [address] Arrived Allergies Active Allergy Reactions Criticality Noted Date Comments Atorvastatin Muscle pain High 03/30/2019 Ezetimibe Muscle pain High 01/25/2020 documented as of this encounter (statuses as of 09/08/2023) Medications Medication Sig Dispensed Refills Start Date [...] A1c goal of less than 7.0% (HCC) Use as directed daily. Test once daily DxE11.9 100 Strip 5 03/02/2021 Active LancetsIndications :Type 2 diabetes mellitus with hemoglobin A1c goal of less than 7.0% ([facility]) Test once daily DxE11.9. 100 Each 5 03/02/2021 Active Albuterol Sulfate HFA 108 (90 Base) MCG/ACT Inhalation Aerosol SolutionIndication s:Acute bronchitis, antibiotics not indicated Inhale 2 Puffs by mouth every 6 hours as needed for Cough or Shortness of Breath. 54 g 1 06/30/2021 Active Additional Information Patient not taking.Reported on 09/02/2023 Acyclovir 400 MG Oral Tablet (Zovirax)Indicatio ns:Lambda [...] the morning. 30 Capsule 1 03/17/2023 Active Levothyroxine Sodium 50 MCG Oral Tablet (Levoxyl) TAKE 1 TABLET BY MOUTH DAILY AT LEAST 30 MINUTES PRIOR TO FIRST MEAL OF THE DAY OR OTHER MEDICATIONS 90 Tablet 3 01/11/2023 01/11/20 24 Active Additional Information Patient taking differently: 50 mcg Oral [id number], Reported on 04/14/2023 Warfarin Sodium 2.5 MG Oral Tablet (Coumadin)Indicati ons:Atrial fibrillation, unspecified type (HCC),Anticoagulat ion management encounter,[facility] current use of anticoagulant therapy,Paroxysmal atrial fibrillation [...] Additional Information Patient not taking.Reported on 09/02/2023 Tenofovir Alafenamide Fumarate 25 MG Oral Tablet [...] evening. 15 mL 3 07/19/2023 Active [place] 32G X 4 MM Use as directed. [...] other day. 100 Tablet 3 09/02/2023 Active Potassium Chloride ER 10 MEQ Oral Tablet Extended ReleaseIndications :Chronic diastolic congestive heart failure (HCC) Take 1 Tablet by mouth in the morning. 100 Tablet 3 09/02/2023 Active Nystatin 633208 UNIT/ML Mouth/Throat SuspensionIndicati ons:Multiple myeloma in relapse (HCC) Swish and swallow 5 mL in the morning and 5 mL at noon and 5 mL in the evening and 5 mL before bedtime. 60 mL 1 09/08/2023 Active documented as of this encounter (statuses as of 09/08/2023) Active Problems Problem Noted Date Diagnosed Date [...] without remission 06/14/2014 Overview: Dr Rodriges/ [facility] ADVANCE DIRECTIVE INFORMATION 10/13/2006 Overview: No, Advance Directive brochure offered , patient declined. Degeneration of lumbosacral intervertebral disc 02/19/2005 documented as of this encounter (statuses as of 09/08/2023) Resolved Problems Problem Noted Date Diagnosed Date [...] as of this encounter (statuses as of 09/08/2023) Immunizations Name Administration Dates Next Due COVID-19, [...] Care Team (Late st Contact Info) Description 09/09/2023 4:00 PM EST Home Visit [facility] [address] [place] [address] Sulma Seth, RN [address] [place] [address] 09/13/2023 9:00 AM EST Office Visit Cardiology, [facility] [address] [place] [address] Beth Salter CRNP [address] [facility] [place] [phone] 09/13/2023 3:30 PM EST Telemedicine Pharmacy, [address] [place] [address] [place] [address] 09/14/2023 8:50 AM EST Anticoagulation Pharmacy, [address] [place] [address] [place] [address] 10/11/2023 1:00 PM EST Office Visit [facility] Tyree Jordan [address] [facility] [place] [address] Rosalio Amaral MD [address] [place] [address] 10/24/2023 1:30 PM EST Office Visit Urology, [facility] [address] [place] [address] Devyn Paniagua MD [address] [address] [place] [address] 11/10/2023 9:00 AM EST Office Visit [facility] Tyree Jordan [address] [place] [address] Rosalio Amaral MD [address] [facility] [place] [address] 11/23/2023 9:40 AM EDT Office Visit Nephrology, Carla Renae [address] [place] [address] Armando Cook MD [address] [place] [address] 12/09/2023 3:30 PM EDT Office Visit Hematology [facility] Tyree UGARTE [address] [place] [address] Rosalio Amaral MD [address] [place] [address] Pending Results Name Type Priority Associated Diagnoses Date /Time COMPREHENSIVE METABOLIC PANEL Lab STAT Multiple myeloma in relapse (HCC) 09/08/2023 12:03 PM EST IMMUNOGLOBULIN QUANTITATIVE Lab STAT Multiple myeloma in relapse ([facility]) 09/08/2023 12:03 PM EST LD Lab STAT Multiple myeloma in relapse ([facility]) 09/08/2023 12:03 PM EST SERUM FREE LIGHT CHAINS Lab STAT Multiple myeloma in relapse ([facility]) 09/08/2023 12:03 PM EST SERUM PROTEIN ELECTROPHORESIS REFLEX PROFILE Lab STAT Multiple myeloma in relapse ([facility]) 09/08/2023 12:03 PM EST FERRITIN Lab STAT Multiple myeloma in relapse ([facility]) 09/08/2023 12:03 PM EST PT INR Lab STAT Multiple myeloma in relapse ([facility]) 09/08/2023 12:03 PM EST BNP, NT-PRO Lab STAT Multiple myeloma in relapse ([facility]) 09/08/2023 12:03 PM EST TROPONIN T, HIGH SENSITIVITY Lab STAT Multiple myeloma in relapse ([facility]) 09/08/2023 12:03 PM EST URINE PROTEIN ELECTROPHORESIS REFLEX PROFILE, RANDOM URINE Lab STAT Multiple myeloma in relapse ([facility]) 09/08/2023 12:07 PM EST ALBUMIN / CREATININE RATIO, URINE Lab STAT Multiple myeloma in relapse ([facility]) 09/08/2023 12:07 PM EST Health Maintenance Due Date Last [...] Additional history exists CKD PHOS USE SMARTSET 89651 08/16/202401/2023, 07/25/2023, 07/06/2023, Additional history exists CKD HGB USE SMARTSET 18389 09/08/202409/08, 09/08/2023, 08/16/2023, Additional history exists DTaP,Tdap,and [...] this encounter Medical Devices Implanted Type Area Automatic Riveting Machine Operator Device Identifier Shelf Expiration Date Model / Serial / Lot Port Power Mri W/8fr Cath - [id number] Implanted:Qty: 1 on 09/26/2020 by Simone Michelle MD at [facility] Right: Chest CR BARD : PERIPHERAL VASCULAR 10/12/2021 [id number] / / [id number] Description:right IJ Lens Intraoc 19.0 - [id number] - [id number] Implanted:Qty: 1 on 02/03/2021 by Chris Sexton MD at [facility] Right: Eye [employer] 09/11/2025 [id number] / [id number] / Lens Intraoc 19.0 - [id number] - [id number] Implanted:Qty: 1 on 02/24/2021 by Chris Sexton MD at [facility] Left: Eye [employer] 10/12/2025 [id number] / [id number] / [id number] System Urolift - [id number] Implanted:Qty: 3 on 03/17/2023 by Devyn Paniagua MD at [facility] N/A: Urethra [employer] 11/03/2023 [id number] / / [id number] documented as of this encounter Procedures Procedure Name Priority Date/Time Associated Diagnosis Comments DIFFERENTIAL, AUTOMATED STAT 09/08/2023 12:03 PM EST Multiple myeloma in relapse (HCC) CBC STAT 09/08/2023 12:03 PM EST Multiple myeloma in relapse (HCC) CBC STAT 09/08/2023 12:03 PM EST Multiple myeloma in relapse (HCC) documented in this encounter Results * (ABNORMAL) DIFFERENTIAL, AUTOMATED (09/08/2023 12:03 PM EST) WBC 10.15 4.00 - 10.80 K/uL 09/08/2023 12:07 PM EST [facility] Neutrophils % 79.6(H) 40.0 - 75.0 % 09/08/2023 12:07 PM EST [facility] Lymphocytes % 6.0(L) 18.0 - 42.0 % 09/08/2023 12:07 PM EST [facility] Monocytes % 11.6(H) 1.0 - 11.0 % 09/08/2023 12:07 PM EST [facility] Eosinophils % 1.8 0.0 - 6.0 % 09/08/2023 12:07 PM EST [facility] Basophils % 0.6 0.0 - 2.0 % 09/08/2023 12:07 PM EST [facility] Immature Granulocytes % 0.4 0.0 - 2.0 % 09/08/2023 12:07 PM EST [facility] Absolute Neutrophils 8.08(H) 1.80 - 7.70 K/uL 09/08/2023 12:07 PM EST [facility] Absolute Lymphocytes 0.61(L) 1.00 - 4.80 K/ul 09/08/2023 12:07 PM EST [facility] Absolute Monocytes 1.18(H) 0.00 - 1.10 K/uL 09/08/2023 12:07 PM EST [facility] Absolute Eosinophils 0.18 0.00 - 0.70 K/uL 09/08/2023 12:07 PM EST [facility] Absolute Basophils 0.06 0.00 - 0.20 K/uL 09/08/2023 12:07 PM EST [facility] Absolute Immature Granulocytes 0.04 0.00 - 0.20 K/uL 09/08/2023 12:07 PM EST [facility] Blood Blood sample taken from central line / Unknown Central Line / Unknown 09/08/2023 12:03 PM EST 09/08/2023 12:05 PM EST Rosalio Amaral MD LAB BLOOD ORDERABLES [facility] [address] [place] [id number] * (ABNORMAL) CBC (09/08/2023 12:03 PM EST) WBC 10.15 4.00 - 10.80 K/uL 09/08/2023 12:07 PM EST [facility] RBC 3.53 4.50 - 5.25 M/uL 09/08/2023 12:07 PM EST [facility] HGB 11.4(L) 14.0 - 16.8 g/dL 09/08/2023 12:07 PM EST [facility] HCT 35.8(L) 40.0 - 48.4 % 09/08/2023 12:07 PM EST [facility] MCV 101.4 82.0 - 99.5 fL 09/08/2023 12:07 PM EST [facility] MCH 32.3 27.0 - 34.0 pg 09/08/2023 12:07 PM EST [facility] MCHC 31.8 32.0 - 36.0 g/dL 09/08/2023 12:07 PM EST [facility] RDW 16.6 11.5 - 15.5 % 09/08/2023 12:07 PM EST [facility] PLT 367 140 - 400 K/uL 09/08/2023 12:07 PM EST [facility] MPV 9.6 6.6 - 11.1 fL 09/08/2023 12:07 PM EST [facility] nRBCs 0 <=0 /100 WBCs 09/08/2023 12:07 PM EST [facility] Blood Blood sample taken from central line / Unknown Central Line / Unknown 09/08/2023 12:03 PM EST 09/08/2023 12:05 PM EST Rosalio Amaral MD LAB BLOOD ORDER[facility]LES [facility] [address] [place] [id number] documented in this encounter Visit Diagnoses Diagnosis Multiple myeloma in relapse (HCC)- Primary Multiple myeloma, in relapse documented in this [...] and were consensually agreed upon. Care Teams Technical Service Representative Relationship Specialty Start Date End Date Jaime Garcia MD [address] [place] [address] [place] [phone] PCP - General Family Medicine 10/15/20 documented as of this encounter
--- OUTSIDE RECORDS SUMMARY | 2023-09-15 10:00 | External Medical Summary | Summary of Care ---
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 Name Role Phone Jaime Garcia MD Primary Care Provide r Reason for Visit * Reason Comments Follow Up Encounter Details Date Type Department Care Team (Late st Contact Info) Description 09/13/2023 9:00 AM EST Office Visit Cardiology, [facility] [address] [facility] [place] [id number] Beth Salter CRNP [address] [facility] [place] [address] Cardiac amyloidosis (HCC)*; Chronic diastolic congestive heart failure (HCC); Coronary artery disease involving unga coronary artery of unga heart without angina pectoris; PAF (paroxysmal atrial [...] hemoglobin A1c goal of less than 7.0% ([facility]) Use as directed daily. Test once daily DxE11.9 100 Strip 5 03/02/2021 Active LancetsIndications :Type 2 diabetes mellitus with hemoglobin A1c goal of less than 7.0% ([facility]) Test once daily DxE11.9. 100 Each [...] Information Patient taking differently: 50 mcg Oral [id number], Reported on 04/14/2023 Warfarin Sodium 2.5 MG Oral Tablet (Coumadin)Indicati ons:Atrial fibrillation, unspecified type (HCC),Anticoagulat ion management encounter,detention current use of anticoagulant therapy,Paroxysmal atrial fibrillation [...] Additional Information Patient taking differently:10 Units Subcutaneous [id number],On hold until seen by MTM 09/14, Reported on 09/09/2023 Pen [place] 32G X 4 MM Use as directed. [...] morning. 100 Tablet 3 09/02/2023 Active Nystatin 185858 UNIT/ML Mouth/Throat SuspensionIndicati ons:Multiple myeloma in relapse [...] myeloma without remission 06/14/2014 Overview: Dr Rodriges/ [facility] ADVANCE DIRECTIVE INFORMATION 10/13/2006 [...] Smoking Tobacco: Never Smokeless Tobacco: Current Chew Tobacco Cessation:Ready to Q uit: Not Asked; Counseling Given: Not Answered Comments:one pouch or a little less daily for 17 years Alcohol Use [...] Sign Reading Time Taken Comments Blood Pressure 94/62 09/13/2023 8:56 AM EST Pulse 92 09/13/2023 8:56 AM EST Temperature - - Respiratory Rate 16 09/13/2023 8:56 AM EST Oxygen Saturation - - Inhaled Oxygen Concentration - - Weight 71.6 kg (157 lb 12.8 oz) 09/13/2023 8:56 AM EST Height - - Body Mass Index 23.3 09/08/2023 10:10 AM EST documented in this encounter Patient Instructions * Patient Instructions* Beth Salter CRNP - 09/13/2023 9:36 AM EST Please get updated lab work tommorow to recheck kidney and electrolyte numbers Will also order stool testing for the ongoing diarrhea. documented in this encounter Progress Notes * Beth Salter CRNP - 09/13/2023 9:00 AM EST Subjective Jerardo Ochoa Jr. is a 53 year old male. Chief Complaint Patient presents with Follow Up Close EP Follow Up Referring Provider: Tim Ruiz Cardiac Problems: Lambda light chain myeloma diagnosed in 2013, status post autologous stem cell transplantation in 2014, systemic amyloidosis, cardiac AL amyloidosis Orthostatic hypotension Chronic heart failure with preserved EF due ot Diastolic, NYHA class II Nonobstructive coronary artery disease by cardiac pAF on amiodarone and coumadin [id number] 3 (CHF, CAD, DM) CKD stage 3 chronic DEBBY compliant with CPAP DM HLD HPI: 53 year old male presents for close EP follow up . Last seen in the EP clinic 3 months ago. He was seen by general cardiology last week. At his prior EP visit his amiodarone was discontinued however he has not noticed a difference in his leg weakness. His last clinic visit he did have a hospital stay in regard to hypotension and early August at which time his ProAmatine was increased. Just last week he had an episode of shortness of breath that was resolved with increasing his home dose of torsemide. Took extra Torsemide daily for 1 week, backdown to 1 x 20 mg tablet daily for the last 5-6 days. Has been having diarrhea for the past week and nausea since he got out of the hospital a few weeks ago. Denies chest pain, SOB, palpitations, syncope, edema, orthopnea and PND. No change in activity tolerance. Dizziness chronically, worse when BP is low. Reports compliance with medications without any untoward side effects, or difficulty with affordability. PMH: Patient Active Problem List Diagnosis Code Degeneration of lumbosacral intervertebral disc M51.37 ADVANCE DIRECTIVE INFORMATION Multiple myeloma without remission ([facility]) C90.00 Organ-limited amyloidosis ([facility]) E85.4 PAF (paroxysmal atrial fibrillation) ([facility]) I48.0 Anxiety F41.9 Type 2 diabetes mellitus with hemoglobin A1c goal of less than 7.0% ([facility]) E11.9 Hypogammaglobulinemia ([facility]) D80.1 Lambda light chain myeloma ([facility]) C90.00 AL amyloidosis ([facility]) E85.81 DEBBY (obstructive sleep apnea) G47.33 Statin intolerance Z78.9 Peripheral neuropathic pain M79.2 Current chronic use of systemic steroids Z79.52 Hyperlipidemia with target LDL less than 70 E78.5 Coronary artery disease, non-occlusive I25.10 Senile cardiac amyloidosis ([facility]) E85.4, I43 Immunosuppressed status ([facility]) D84.9 Chronic kidney disease, stage 3b ([facility]) N18.32 Type 2 diabetes mellitus with stage 3b chronic kidney disease ([facility]) E11.22, N18.32 Congenitally solitary right kidney Q60.0 BPH with obstruction/lower urinary tract symptoms N40.1, N13.8 Chronic heart failure with preserved ejection fraction ([facility]) I50.32 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 oxygen IN GAS Use 2 L/min(Oxygen) as directed at bedtime. 1 Each 0 Albuterol Sulfate HFA 108 (90 Base) MCG/ACT Inhalation Aerosol Solution Inhale 2 Puffs by mouth every 6 hours as needed for Cough or Shortness of Breath. 54 g 1 Acyclovir 400 MG Oral Tablet (Zovirax) Take one tablet once daily 180 Tablet 3 Ondansetron HCl 8 MG Oral Tablet (Zofran) [...] hour prior to Hizentra. 30 Tablet 3 EpiPen 2-Konstantin 0.3 MG/0.3ML Injection Solution Auto-injector For a severe reaction: Inject in outer thigh following instructions on package and go to the Emergency room. 2 Each 3 Polyethylene Glycol 3350 17 GM Oral Packet Take 1 Packet by mouth daily as needed. oxyCODONE-Acetaminophen 5-325 MG Oral Tablet (Percocet) Take 1 Tablet by mouth every 6 hours as needed for Pain, Severe. 10 Tablet 0 Levothyroxine Sodium 50 MCG Oral Tablet (Levoxyl) TAKE 1 TABLET BY MOUTH DAILY AT LEAST 30 MINUTES PRIOR TO FIRST MEAL OF THE DAY OR OTHER MEDICATIONS (Patient taking differently: Take 1 Tablet by mouth daily first thing in the morning.) 90 Tablet 3 Warfarin Sodium 2.5 MG Oral Tablet (Coumadin) TAKE ONE TABLET BY MOUTH ON TUESDAY AND TUESDAY, AND ONE-HALF TABLET ALL OTHER DAYS OR DIRECTED BY ANTICOAGULATION CLINIC (Patient taking differently: Take 0.5 Tablets by mouth in the morning.) 75 Tablet 3 Finasteride 5 MG Oral Tablet (Proscar) TAKE [...] mouth in the morning. 180 Tablet 1 Icosapent Ethyl 1 GM Oral Capsule (Vascepa) Take 2 Capsules by mouth 2 times a day with morning andevening meals. Swallow capsules whole, do not open or break. 360 Capsule 3 oxyCODONE HCl 5 MG Oral Tablet (Oxy IR) Take 1 Tablet by mouth every 4 hours as needed for breakthrough pain. 30 Tablet 0 Magnesium Chloride 64 MG Oral Tablet Delayed Release (Mag64) Take 1 Tablet by mouth in the morning and 1 Tablet before bedtime. Folic Acid 400 MCG Oral Tablet TAKE ONE TABLET BY MOUTH IN THE MORNING 90 Tablet 1 Pantoprazole Sodium 20 MG Oral Tablet Delayed Release (Protonix) TAKE ONE TABLET BY MOUTH EVERY DAYIN THE MORNING 90 Tablet 2 Midodrine HCl 10 MG Oral Tablet (Proamatine) Take 2 tablet shortly before or upon rising in the morning, at midday, and in the late afternoon (not later than 6 PM) 600 Tablet 3 Torsemide 10 MG Oral Tablet (Demadex) Take 1 Tablet by mouth in the morning every other day. (Patient taking differently: Take 1 Tablet by mouth in the morning. 2 tabs daily.) 100 Tablet 3 Potassium Chloride ER 10 MEQ Oral Tablet Extended Release Take 1 Tablet by mouth in the morning. 100 Tablet 3 Nystatin 424843 UNIT/ML Mouth/Throat Suspension Swish and swallow 5 mL in the morning and 5 mL at noon and 5 mL in the evening and 5 mL before bedtime. 60 mL 1 Vemlidy 25 MG Oral Tablet (Tenofovir Alafenamide Fumarate) Take 1 tablet by mouth in the morning. 90 Tablet 1 NSS 0.9 % SOLN with daratumumab 400 MG/20ML SOLN 16 mg/kg Administer intravenously every 14 days. OneTouch Ultra Blue In Vitro Strip (Glucose Blood) Use as directed daily. Test once daily DxE11.9 100 Strip 5 Lancets Test once daily DxE11.9. 100 Each 5 Dexamethasone 4 MG Oral Tablet (Decadron) 5 tabs 2 times monthly 10 Tablet 5 Dexamethasone 4 MG Oral Tablet (Decadron) TAKE 5 TABLETS BY MOUTH TWICE A MONTH (Patient not taking: Reported on 09/02/2023) 10 Tablet 5 Insulin Glargine Solostar 100 UNIT/ML Subcutaneous Solution Pen-injector (Lantus SoloStar) Inject 10 Units under the skin every evening. (Patient taking differently: Inject 10 Units under the skin every evening. On hold until seen by MTM 09/14) 15 mL 3 Pen [place] 32G X 4 MM Use as directed. Inject Lantus once daily. 50 Each 3 Dexcom G7 Sensor Use as directed to check blood sugars daily. Change every 10 days 9 Each 3 No current facility-administered medications for this visit. [...] CAD - per cardiology note - cath 2018 IPMN (intraductal papillary mucinous neoplasm) on MRI, then EUS; surveillance imaging due May 2024 Multiple myeloma (HCC) Obstructive sleep apnea Orthostatic hypotension Tobacco use disorder Past Surgical History: Procedure Laterality Date CENTRAL LINE PLACEMENT-FLUORO ([facility]) 09/26/2020 CENTRAL LINE PLACEMENT-FLUORO performed by Simone Michelle MD at [facility] COLONOSCOPY, DIAGNOSTIC (RECTUM) 09/09/2021 normal bx / COLONOSCOPY FLEXIBLE PROXIMAL DIAGNOSTIC performed by Philip Graham MD at END[facility] CYSTOURETHROSCOPY, W/ TRANSPROSTATIC IMPLANT N/A 03/17/2023 CYSTOURETHROSCOPY, WITH INSERTION OF PERMANENT ADJUSTABLE TRANSPROSTATI IMPLANT; SINGLE IMPLANT performed by Devyn Paniagua MD at OR [facility] EGD, FLEXIBLE, DIAGNOSTIC 10/15/2019 normal bx / ESOPHAGOGASTRODUODENOSCOPY (EGD), FLEXIBLE, TRANSORAL, DIAGNOSTIC performed by Mellissa Mari MD at [facility] EGD, FLEXIBLE, DIAGNOSTIC N/A 05/06/2023 esophageal plaques, biopsies confirm rebeca/EGD/MN EGD, W/ENDOSCOPIC US N/A 05/06/2023 multiple cystic lesion pancreatic head and body/EUS/MN INFORMATION vasectomy reversal INFORMATION status post autologous stem cell transplantation in 2015 - per cardiology note INSER TUNN ACC DEV;5 YRS/OLDER N/A 09/26/2020 INSERT TUNNELED CENTRAL VENOUS ACCESS WITH SUBQ PORT performed by Simone Michelle MD at OR [facility] MRI L SPINE W WO CONTRAST [place], was told he had a herniated disc REMOVE CATARACT, INSERT LENS PROSTH Right 02/03/2021 RIGHT EXTRACAPSULAR CATARACT REMOVAL WITH INTRAOCULAR LENS performed by Chris Sexton MD at OR [facility] REMOVE CATARACT, INSERT LENS PROSTH Left 02/24/2021 LEFT EXTRACAPSULAR CATARACT REMOVAL WITH INTRAOCULAR LENS performed by Chris Sexton MD at OR [facility] VASECTOMY 1999 Review of patient's allergies indicates: Allergen Reactions Atorvastatin Muscle pain Zetia [Ezetimibe] Muscle pain No family history on file. Family Status Relation Status Mo Alive unknown Fa Alive unknown Sis Alive step sister health unknown Leonila Alive Leonila Alive Social History Socioeconomic History Marital status: Spouse name: Not on file Number of children: 2 Years of education: Not on file Highest education level: Not on file Occupational History Not on file Tobacco Use Smoking status: Never Smokeless tobacco: Current Types: Chew Tobacco comments: one pouch or a little less daily for 17 years Vaping Use Vaping Use: Never used Substance and Sexual Activity Alcohol use: Yes Comment: rarely Drug use: No Sexual activity: Yes Partners: Female Other Topics Concern Not on file Social History Narrative Not on file Social Determinants of Health Financial Resource Strain: Not on file Food Insecurity: No Food Insecurity (02/22/2022) Hunger Vital Sign Worried About Running Out of Food in the Last Year: Never true Ran Out of Food in the Last Year: Never true Transportation Needs: Not on file Physical Activity: Not on file Stress: Not on file Social Connections: Not on file Intimate Partner Violence: Not on file Housing Stability: Not on file Review of Systems Constitutional: Positive for fatigue. Negative for activity change, chills, fever and unexpected weight change. HENT: Negative for postnasal drip, rhinorrhea and sinus pressure. Eyes: Negative for visual disturbance. Respiratory: Positive for shortness of breath. Cardiovascular: Negative for chest pain, palpitations and leg swelling. Gastrointestinal: Positive for diarrhea and nausea. Negative for blood in stool, constipation and vomiting. Genitourinary: Negative for dysuria and hematuria. Musculoskeletal: Negative for gait problem. Skin: Negative for rash. Neurological: Positive for dizziness, weakness and light-headedness. Negative for syncope. Objective BP 94/62 (BP Site: Left Arm, BP Position: Sitting, BP Cuff Size: Large) | Pulse 92 | Resp 16 | Wt 71.6 kg (157 lb 12.8 oz) | BMI 23.30 kg/m | BSA 1.87 m Wt Readings from Last 3 Encounters: 09/13/23 71.6 kg (157 lb 12.8 oz) 09/08/23 73.8 kg (162 lb 11.2 oz) 09/02/23 75.3 kg (166 lb) Physical Exam Vitals and nursing note reviewed. Constitutional: General: He is awake. Appearance: Normal appearance. He is well-developed. HENT: Head: Normocephalic and atraumatic. Eyes: General: No scleral icterus. Extraocular Movements: Extraocular movements intact. Neck: Vascular: Normal carotid pulses. No carotid bruit or JVD. Cardiovascular: Rate and Rhythm: Normal rate and regular rhythm. Pulses: Carotid pulses are 2+ on the right side and 2+ on the left side. Radial pulses are 2+ on the right side and 2+ on the left side. Posterior tibial pulses are 2+ on the right side and 2+ on the left side. Heart sounds: S1 normal and S2 normal. No murmur heard. Pulmonary: Effort: Pulmonary effort is normal. Breath sounds: Normal breath sounds. No decreased breath sounds, wheezing, rhonchi or rales. Abdominal: General: Abdomen is protuberant. Musculoskeletal: Cervical back: Neck supple. Right lower leg: No edema. Left lower leg: No edema. Skin: General: Skin is warm and dry. Neurological: General: No focal deficit present. Mental Status: He is alert and oriented to person, place, and time. Psychiatric: Attention and Perception: Attention normal. Mood and Affect: Mood normal. Speech: Speech normal. Behavior: Behavior normal. Behavior is cooperative. Thought Content: Thought content normal. Cognition and Memory: Cognition normal. Judgment: Judgment normal. RESULTS: Echocardiograms: 02/2023 The examination is adequate to evaluate the referral indication. The LV wall thickness is severely increased (concentric). There is mild diffuse left ventricular hypokinesis. The left atrium is severely enlarged. The l left ventricular diastolic function is severely abnormal (grade III). Trace mitral regurgitation is present. A small anterior and right lateral locuated pericardial effusion is present Cardiac tamponade is absent. Findings are consistent with the patient's known history of cardiac amyloidosis. Compared to the images obtained at the time of the prior study dated 09/12/22, no signifificant changes. Calculated LV ejection Fraction = 42% (bi-plane method of discs). 09/22/2022: The LV wall thickness is severely increased (concentric). There is mild diffuse left ventricular hypokinesis. Calculated LV ejection Fraction = 45% (bi-plane method of discs). The left atrium is severely enlarged. The left ventricular diastolic function is severely abnormal (grade III). Trace mitral regurgitation is present. The estimated pulmonary artery systolic pressure is 38 mm Hg (mildly elevated) The global longitudinal strain (GLS) is - 6.8 %. Normal left ventricular systolic function is suggested if GLS is -14% to -30%. A small anterior and right lateral loculated pericardial effusion is present. Cardiac tamponade is absent. Findings are consistent with the patient's known history of cardiac amyloidosis. The global longitudinal strain is markedly abnormal with sparing of the apical segments. Compared to the images obtained at the time of the prior study dated 07/20/22, there has been a sublte increase in the size of the pericardial effusion. 07/20/2022: Cardiac amyloidosis is suspected. The qualitative LV ejection fraction is 50-54% (normal). The LV wall thickness is moderately increased (concentric). There is borderline diffuse left ventricular hypokinesis. The right ventricular cavity is moderately dilated. The right ventricular systolic function is moderately reduced . The left atrium is severely enlarged (>48 ml/m^2,). The right atrium is moderately enlarged. The left ventricular diastolic function is severely abnormal (grade III). Mild tricuspid regurgitation is present. There is no evidence of pulmonary hypertension. A trivial posterior loculated pericardial effusion is present. Cardiac tamponade is absent. Compared to last available study changes are noted as follows: Trivial pericardial effusion now present. 02/25/2022: The left ventricular cavity size is normal. The LV wall thickness is moderately increased (concentric). There is borderline diffuse left ventricular hypokinesis. The qualitative LV ejection fraction is 50-54% (normal). The left ventricular diastolic function is severely abnormal (grade III). The left atrium is severely enlarged (>48 ml/m^2,). Mild mitral regurgitation is present. Mild tricuspid regurgitation is present. The estimated pulmonary artery systolic pressure is 30-35mm Hg. 09/17/2021: The left ventricular cavity size is normal. The LV wall thickness is moderately increased (concentric). There is borderline diffuse left ventricular hypokinesis. The qualitative LV ejection fraction is 50-54% (normal). The left ventricular diastolic function is severely abnormal (grade III). The left atrium is severely enlarged (>48 ml/m^2,). Mild mitral regurgitation is present. Mild tricuspid regurgitation is present. The estimated pulmonary artery systolic pressure is 30-35mm Hg. 09/30/2020: The left ventricular cavity size is normal. The LV wall thickness is moderately increased (concentric). There is borderline diffuse left ventricular hypokinesis. Calculated LV ejection Fraction = 50% (single plane four chamber method of discs). The left ventricular diastolic function is severely abnormal (grade III). The left atrium is moderately enlarged (42-48 ml/m^2). The right atrium is mildly enlarged. Significant mitral regurgitation is absent. Mild tricuspid regurgitation is present. The estimated pulmonary artery systolic pressure is 35-40mm Hg. 06/03/2020: The qualitative LV ejection fraction is 55-59% (normal). The left ventricular cavity size is normal. The LV wall thickness is moderately increased (concentric). The right ventricular systolic function is normal as assessed by tricuspid annular plane systolic excursion (TAPSE) (normal >1.7cm). The left atrium is moderately enlarged (42-48 ml/m^2). The left ventricular diastolic function is severely abnormal (grade III). Mild tricuspid regurgitation is present. A small (<5 mm) circumferential pericardial effusion is noted. There is no evidence of pulmonary hypertension. 02/28/2019: The qualitative LV ejection fraction is 55-59% (normal). The left ventricular cavity size is normal. The LV wall thickness is moderately increased (concentric). The right ventricular systolic function is normal as assessed by tricuspid annular plane systolic excursion (TAPSE) (normal >1.7cm). The left atrium is moderately enlarged (42-48 ml/m^2). The left ventricular diastolic function is severely abnormal (grade III). Mild tricuspid regurgitation is present. A small (<5 mm) circumferential pericardial effusion is noted. There is no evidence of pulmonary hypertension. Zio Patch: 09/15/2022: CONCLUSIONS: Indication: Paroxysmal atrial fibrillation Duration: 6 days 19 hours Patient had a min HR of 51 bpm, max HR of 164 bpm, and avg HR of 62 bpm. Predominant underlying rhythm was Sinus Rhythm. 1 run of Ventricular Tachycardia occurred lasting 5 beats with a max rate of 164 bpm (avg 145 bpm). 3 Supraventricular Tachycardia runs occurred, the run with the fastest interval lasting 12 beats with a max rate of 125 bpm (avg 117 bpm); the run with the fastest interval was also the longest. Isolated SVEs were rare (<1.0%), SVE Couplets were rare (<1.0%), and SVE Triplets were rare (<1.0%). Isolated VEs were rare (<1.0%), VE Couplets were rare (<1.0%), and no VE Triplets were present. Symptoms predominantly correlate with sinus rhythm, rarely with supraventricular ectopy. Holter Monitor: 03/25/2022: 1. Baseline sinus rhythm noted throughout, with heart rates ranging from 57 to 90. 2. Minimal amount of supraventricular ectopic activity noted (0.09% of all beats), consisting of 55 isolated APDs. 3. Minimal amount of ventricular ectopic activity noted (0.02% of all beats), consisting of 14 isolated VPDs and a 4 beat run of nonsustained VT at a ventricular rate of 104 beats per minute that occurred at 7:52AM. 4. No SVT or significant ST segment changes were noted. 5. No symptoms were reported. ECGS: 08/27/23 at [facility] NSR 72 bpm QTc 466 ms 08/26/23 at [facility] NSR 76 bpm QTc 414 ms 08/16/23 at [facility] NSR 77 bpm QTc 491 ms 08/15/23 at [facility] NSR 72 bpm QTc 512 ms 08/13/23 at [facility] NSR 80 bpm QTc 493 ms 08/12/23 at [facility] NSR 76 bpm QTc 508 ms 08/11/23 at [facility] NSR 73 bpm QTc 471 ms 08/10/23 at [facility] NSR 79 bpm QTc 495 ms 08/09/23 at [facility] NSR 775 bpm QTc 513 ms 08/08/23 at [facility] NSR 82 bpm QTc 537 ms 06/25/23 at [facility] NSR 76 bpm QTc 500 ms 05/31/23 NSR 76 bpm QTc 461 ms 08/19/2022: SR 65bpm 12/04/2021: SR 75bpm 10/27/2021: SR 65bpm 09/23/2020: SR 88bpm QTc 474ms 06/03/2020: SR 80bpm 12/24/2018: SR 78bpm 08/17/2018: SR 83bpm Lab Work Reviewed: Latest Reference Range & Units 07/25/23 09:43 08/16/23 00:00 08/22/23 16:22 09/08/23 12:03 Troponin T, High Sensitivity <=22 ng/L 63 (H) BNP, NT-Pro <300 pg/mL 10,037 (H) Sodium 135 - 146 mmol/L 139 134 (L) 138 Potassium 3.5 - 5.1 mmol/L 4.6 5.1 4.7 POTASSIUM-OUTSIDE LAB 3.5 - 5.1 MMOL/L 4.3 (E) Chloride 98 - 107 mmol/L 101 94 (L) 101 CO2 22 - 32 mmol/L 30 23 29 BUN 6 - 20 mg/dL 14 22 (H) 18 Creatinine 0.6 - 1.2 mg/dL 1.5 (H) 2.0 (H) 1.5 (H) CREATININE-OUTSIDE LAB 0.6 - 1.4 MG/DL 1.03 (E) Estimated Glomerular Filtration Rate >=60 mL/min 57 (L) 40 (L) 58 (L) EGFR-OUTSIDE LAB 82.5 (E) Anion Gap 7 - 15 mmol/L 8 17 (H) 8 Glucose 70 - 120 mg/dL 132 (H) 110 90 GLUCOSE-OUTSIDE LAB 70 - 99 MG/DL 81 (E) Calcium 8.4 - 10.2 mg/dL 9.0 11.0 (H) 9.2 Phosphorus 2.5 - 4.8 mg/dL 2.4 (L) PHOSPHORUS-OUTSIDE LAB 2.5 - 4.9 MG/DL 2.0 ! (E) Protein 6.0 - 8.3 g/dL 6.0 - 8.3 g/dL 6.0 5.4 (L) 6.0 LD <=250 U/L 169 25-Hydroxy Vitamin D >19 ng/mL 24 25-HYDROXY VITAMIN D Rpt TSH 0.27 - 4.20 uIU/mL 2.22 TSH WITH FREE T4 IF INDICATED Rpt CBC Rpt ! Rpt ! CBC WITH WBC DIFFERENTIAL Rpt ! Rpt ! WBC 4.00 - 10.80 K/uL 6.48 10.15 HGB 14.0 - 16.8 g/dL 13.8 (L) 11.4 (L) HCT 40.0 - 48.4 % 42.5 35.8 (L) MCV 82.0 - 99.5 fL 99.5 101.4 PLT 140 - 400 K/uL 289 367 Absolute Neutrophils 1.80 - 7.70 K/uL 5.01 8.08 (H) Absolute Lymphocytes 1.00 - 4.80 K/ul 0.49 (L) 0.61 (L) Absolute Monocytes 0.00 - 1.10 K/uL 0.85 1.18 (H) Absolute Eosinophils 0.00 - 0.70 K/uL 0.10 0.18 Absolute Basophils 0.00 - 0.20 K/uL 0.03 0.06 Ferritin 30 - 400 ng/mL 266 Albumin 3.30 - 4.40 g/dL 2.96 (L) Alpha-1 Globulin 0.10 - 0.30 g/dL 0.29 Alpha-2 Globulin 0.60 - 1.00 g/dL 1.11 (H) Beta-Globulin 0.80 - 1.30 g/dL 0.70 (L) Gamma-Globulin 0.70 - 1.70 g/dL 0.33 (L) Albumin 3.8 - 5.0 g/dL 3.6 (L) 3.9 AST 10 - 50 U/L 16 15 ALT 10 - 50 U/L 19 12 Alkaline Phosphatase 35 - 130 U/L 121 123 Bilirubin, Total <=1.2 mg/dL 0.5 0.7 Immunofixation Interpretation This result contains rich text formatting which cannot be displayed here. SERUM IMMUNOFIXATION Rpt IgA 70 - 400 mg/dL 47 (L) IgG 700 - 1,600 mg/dL 273 (L) IgM 40 - 230 mg/dL <5 (L) Navajo Free Light Chains, Serum 3.30 - 19.40 mg/L 7.86 [place] Lambda Free Light Chains Ratio 0.26 - 1.65 0.06 (L) Lambda Free Light Chains, Serum 5.71 - 26.30 mg/L 136.31 (H) SERUM PROTEIN ELECTROPHORESIS REFLEX PROFILE Rpt ! Latest Reference Range & Units 08/30/23 08:30 09/01/23 08:38 09/06/23 09:02 09/08/23 12:03 INR 0.8 - 1.2 2.1 (H) Fingerstick INR INR 1.4 2.1 2.0 Prothrombin Time 11.6 - 15.2 seconds 23.4 (H) Latest Reference Range & Units 03/29/23 09:09 Triglycerides <=174 mg/dL 419 (H) Cholesterol <200 mg/dL 128 Non-HDL Cholesterol <=159 mg/dL 84 HDL Cholesterol >39 mg/dL 44 LDL Cholesterol (Direct Measure) <=129 mg/dL 37 Impression Amyloidosis; Lambda light chain myeloma diagnosed in 2013, status post autologous stem cell transplantation in 2014, systemic amyloidosis, cardiac AL amyloidosis Orthostatic hypotension Chronic heart failure with preserved EF due ot Diastolic, NYHA class II pAF, on coumadin [id number] 3 ( CHF, CAD, DM) NSVT on zio patch Nonobstructive coronary artery disease by cardiac HLD Gastritis Neuropathy Hospitalized with hypotension Aug 2023, increased midodrine to 20 mg TID Plan: -HR and BP well controlled -no recurrence of atrial fibrillation noted on review of EKGs over the last several months, he alsohas not reported any symptoms in regard to this -blood pressure trends on the low side which is managed with 20 mg ProAmatine three times daily, itis reasonable for him to hold if he checks his blood pressure and it is above 120 systolically which he has been doing -he did have a CHF exacerbation which was managed with taking an extra torsemide at home over the last week -he is euvolemic on exam today and appears to be closer to his baseline weight -CHF education reinforced -I am somewhat concerned about this persistent diarrhea especially since he did have 1 episode of fecal incontinence, we will order stool studies and CC results his primary care provider for further evaluation -given the extra diuretic dosing and persistent diarrhea of asked him to get repeat lab work tomorrow when he is at the [facility] clinic for his INR check for re- evaluation of renal function and electrolytes -continue warfarin, torsemide, midodrine -encouraged continued compliance with CPAP -Educated patient on caution with change in positions to minimize symptomatic orthostatic hypotension -Discussed importance of diet & exercise with the patient. -Discussed with patient subtle changes in how they are feeling or completing daily activities to contact us sooner; don't wait days or weeks. DISPOSITION: Follow up 3 months general cardiology and 6 months with EP Clinic or if symptoms worsen/fail to improve. All questions were answered to the patients satisfaction. Patient advised to report to ED with any and all emergencies. The patient agrees to the above plan and will call with additional questions or concerns. I spent a total of 43 minutes on the date of service in preparation, delivery, and documentation ofthe care provided to Jerardo Ochoa Jr. excluding any time spent in the performance of separately billed services. [facility], [address] [id number] This chart was completed in part utilizing [employer] Speech Voice Recognition Software. Grammatical errors, random word insertions, pronoun errors, and incomplete sentences are an occasional consequence of this system due to software limitations, ambient noise, and hardware issues. Any formal questions or concerns about the content, text, or information contained within the body of this dictation should be directly addressed to the provider for clarification. documented in this encounter Nursing Notes * Zuleika Valenzuela CMA - 09/13/2023 9:40 AM EST Examination Room: 11 Name: Jerardo Ochoa Jr. Date of : (1970). Reason for Visit: 3M f/u Interim Hospitalization(s): [facility] Problems/Concerns: Midodrine increased to 20 mg TID - occasionally only take 2x d/t BP. Feels dizzy, "off" today. Diarrhea on and off x1 week. Chest Pain/SOB: Denies CP or worsening SOB. [facility] Discussed: No [facility] is a way you can talk to your provider online through e-mail. Would you like to sign up? I can activate it for you? ALREADY ACTIVE Patient was instructed to not get up on the exam table until directed and assisted by their provider; patient is to remain seated in the chair/ wheelchair/ exam table for fall prevention and safety reasons. Patient is aware to have assistance to step down off exam table with personnel. Patient voiced full comprehension of instructions. documented in this encounter Plan of Treatment Upcoming Encounters Date Type Department Care Team (Late st Contact Info) Description 09/13/2023 3:30 PM EST Telemedicine Pharmacy, [address] [place] [id number] [place] [address] 09/14/2023 8:50 AM EST Anticoagulation Pharmacy, [address] [place] [id number] [place] [id number] 10/11/2023 1:00 PM EST Telemedicine [facility] [address] [facility] [place] [address] Roslaio Amaral MD [address] [facility] [place] [address] 10/24/2023 1:30 PM EST Office Visit Urology, [facility] [address] [facility] [place] [address] Devyn Paniagua MD [address] [facility] [address] [place] [address] 10/25/2023 2:30 PM EST [facility] [address] [facility] [place] [address] Sulma Seth RN [address] [facility] [place] [address] 11/10/2023 9:00 AM EST Office Visit [facility] [address] [place] [address] Rosalio Amaral MD [address] [place] [address] 11/23/2023 9:40 AM EDT Office Visit Nephrology, Carla Renae [address] [place] [address] Armando Cook MD [address] [place] [address] 12/09/2023 3:30 PM EDT Office Visit [facility] [address] [place] [address] Rosalio Amaral MD [address] [place] [address] 12/15/2023 8:30 AM EDT Office Visit Cardiology, [facility] [address] [place] [address] Beth Gibbs CRNP [address] [place] [address] 03/08/2024 9:00 AM EDT Office Visit Cardiology [address] [place] [address] Tim Ruiz PA-C [address] [place] [address] Scheduled Orders Name Type Priority Associated Diagnoses Orde r Schedule COMPREHENSIVE METABOLIC PANEL Lab Routine Cardiac amyloidosis (HCC) Chronic diastolic congestive heart failure (HCC) Coronary artery disease involving unga coronary artery of unga heart without angina pectoris PAF (paroxysmal atrial fibrillation) (HCC) Hyperlipidemia with target LDL less than 70 Dyslipidemia, goal LDL below 70 Autonomic orthostatic hypotension Chronic heart failure with preserved ejection fraction (HCC) Vomiting and diarrhea Expected: 09/13/2023, Expires: 09/13/2024 CLOSTRIDIUM DIFFICILE, PCR Lab Routine Cardiac amyloidosis (HCC) Chronic diastolic congestive heart failure (HCC) Coronary artery disease involving unga coronary artery of unga heart without angina pectoris PAF (paroxysmal atrial fibrillation) (HCC) Hyperlipidemia with target LDL less than 70 Dyslipidemia, goal LDL below 70 Autonomic orthostatic hypotension Chronic heart failure with preserved ejection fraction (HCC) Vomiting and diarrhea Expected: 09/13/2023, Expires: 09/13/2024 GASTROINTESTINAL PATHOGEN PANEL, STOOL Lab Routine Cardiac amyloidosis (HCC) Chronic diastolic congestive heart failure (HCC) Coronary artery disease involving unga coronary artery of unga heart without angina pectoris PAF (paroxysmal atrial fibrillation) (HCC) Hyperlipidemia with target LDL less than 70 Dyslipidemia, goal LDL below 70 Autonomic orthostatic hypotension Chronic heart failure with preserved ejection fraction (HCC) Vomiting and diarrhea Expected: 09/13/2023, Expires: 09/13/2024 Health Maintenance Due Date Last Done Comments [...] Additional history exists CKD PHOS USE SMARTSET 86374 08/16/2024 12/0 01/2023, 07/25/2023, 07/06/2023, Additional history exists Albumin/Creatinine Ratio 09/08/2024 023, 06/22/2023, 05/27/2023, Additional history exists CKD HGB USE SMARTSET 92770 09/08/202409/08, 09/08/2023, 08/16/2023, Additional history exists DTaP,Tdap,and [...] this encounter Medical Devices Implanted Type Area Locker Room Manager Device Identifier Shelf Expiration Date Model / Serial / Lot Port Power Mri W/8fr Cath - [id number] Implanted:Qty: 1 on 09/26/2020 by Simone Michelle MD at [facility] Right: Chest CR BARD : PERIPHERAL VASCULAR 10/12/2021 [id number] / / [id number] Description:right IJ Lens Intraoc 19.0 - [id number] - [id number] Implanted:Qty: 1 on 02/03/2021 by Chris Sexton MD at [facility] Right: Eye [employer] 09/11/2025 [id number] / [id number] / Lens Intraoc 19.0 - [id number] - [id number] Implanted:Qty: 1 on 02/24/2021 by Chris Sexton MD at [facility] Left: Eye [employer] 10/12/2025 [id number] / [id number] / [id number] System Urolift - [id number] Implanted:Qty: 3 on 03/17/2023 by Devyn Paniagua MD at OR [facility] N/A: Urethra [employer] 11/03/2023 [id number] / / [id number] documented as of this encounter Visit Diagnoses Diagnosis Cardiac amyloidosis (HCC)- Primary Other amyloidosis Chronic diastolic congestive heart failure (HCC) Chronic diastolic heart failure Coronary artery disease involving unga coronary artery of unga heart without angina pectoris PAF (paroxysmal atrial fibrillation) (HCC) Atrial fibrillation Hyperlipidemia with target LDL less than 70 Other and unspecified hyperlipidemia Dyslipidemia, goal LDL below 70 Other and unspecified hyperlipidemia Autonomic orthostatic hypotension Orthostatic hypotension Chronic heart failure with preserved ejection fraction (HCC) Vomiting and diarrhea Vomiting alone documented in this encounter Advance Directives Latest [...] and were consensually agreed upon. Care Teams Turbogenerator Operator Relationship Specialty Start Date End Date Jaime Garcia MD [address] [place] [address] [place] [phone] PCP - General Family Medicine 10/15/20 documented as of this encounter
--- OUTSIDE RECORDS SUMMARY | 2023-09-15 10:00 | External Medical Summary ---
Author Name Unknown Address Unknown Organization K01:LABORATORY [facility] [place] - [address] [place] [address] Laboratory Report Ordering Provider Test Date Status BINH KLEIN 09/14/2023 09:19:54 Final Observation Date Value Abnormality Reference (Units) Status Source 09/14/2023 09:19:54 Liquid Final Clostridioides difficile toxin and [id number] strain DNA panel - Stool by EDWIN with probe detection 09/14/2023 09:19:54 Negative. No C. difficile toxin B gene DNA detected by PCR (Amplified Probe). Negative Final Performing Location LABORATORY [facility] [place] - [address] [place] [address]
--- OUTSIDE RECORDS SUMMARY | 2023-09-15 10:00 | External Medical Summary ---
Author Name Unknown Address Unknown Organization : Laboratory Report Ordering Provider Test Date Status TASNEEM SLAUGHTER 09/14/2023 09:08:37 Final Therapeutic ranges for non-o perative patients:
Prophylaxsis/treatment of DVT: (Range:2.0-3.0)
Treatment of pulmonary embolism:(Range:2.0-3.0)
Prevention of systemic embolism from:
-tissue heart valves
-acute myocardial infarction
-valvular heart disease
-atrial fibrillation
(Range: 2.0-3.0)
Mechanical prosthetic valves: (Range: 2.5-3.5) Observation Date Value Abnormality Reference (Units ) Status INR in Capillary blood by Coagulation assay 09/14/2023 09:08:37 2.0 (INR) Final Performing Location
--- OUTSIDE RECORDS SUMMARY | 2023-09-15 10:00 | External Medical Summary ---
Author Name Unknown Address Unknown Organization K01:LABORATORY [place] [address] [facility] [address] Laboratory Report Ordering Provider Test Date Status BINH KLEIN 09/14/2023 09:19:32 Final Observation Date Value Abnormality Reference (Units ) Status Campylobacter sp DNA.diarrheagenic [Presence] in Stool by EDWIN with probe detection 09/14/2023 09:19:32 Negative Negative Final Salmonella sp rpoD gene [Presence] in Stool by EDWIN with probe detection 09/14/2023 09:19:32 Positive Abnormal Negative Final Salmonella species detected by PCR (amplified probe). Test results reported to [facility]. Shigella species+EIEC invasi on plasmid antigen H ipaH gene [Presence] in Stool by EDWIN with probe detection 09/14/2023 09:19:32 Negative Negati ve Final Vibrio sp DNA [Identifier] i n Specimen by EDWIN with probe detection 09/14/2023 09:19:32 Negative Negati ve Final Yersinia enterocolitica recN gene [Presence] in Stool by EDWIN with probe detection 09/14/2023 09:19:32 Negative Negative Final Escherichia coli Stx1 toxin stx1 gene [Presence] in Stool by EDWIN with probe detection 09/14/2023 09:19:32 Negative Negative Final Escherichia coli Stx2 toxin stx2 gene [Presence] in Stool by EDWIN with probe detection 09/14/2023 09:19:32 Negative Negative Final Norovirus genogroups I and I I RNA panel - Stool by EDWIN with probe detection 09/14/2023 09:19:32 Negative Negative Final Rotavirus A RNA [Presence] i n Stool by EDWIN with probe detection 09/14/2023 09:19:32 Negative Negative Final Performing Location LABORATORY [facility] [place] - [address] [facility] [address]
--- OUTSIDE RECORDS SUMMARY | 2023-09-15 10:01 | External Medical Summary ---
Author Name Unknown Address Unknown Organization K2I:LABORATORY [address] [place] [address] Laboratory Report Ordering Provider Test Date Status MONIQUE PEREZ 09/08/2023 12:03:02 Final Warfarin Therapy
INR: 2 .0-3.0 conventional anticoagulation
INR: 2.5- 3.5 high intensity anticoagulation Observation Date Value Abnormality Reference (Units ) Status PT 09/08/2023 12:03:02 23.4 Above high normal 11 .6-15.2 (seconds) Final INR 09/08/2023 12:03:02 2.1 Above high normal 0. 8-1.2 Final Performing Location LABORATORY [address] [place] [address]
--- OUTSIDE RECORDS SUMMARY | 2023-09-15 10:01 | External Medical Summary ---
Author Name Unknown Address Unknown Organization K01:LABORATORY [facility] - [address] [place] [address] Laboratory Report Ordering Provider Test Date Status MONIQUE PEREZ 09/08/2023 12:03:02 Final Observation Date Value Abnormality Reference (Units ) Status IgG 09/08/2023 12:03:02 273 Below low normal 700 -1600 (mg/dL) Final IgA 09/08/2023 12:03:02 47 Below low normal 70- 400 (mg/dL) Final IgM 09/08/2023 12:03:02 <5 Below low normal 40- 230 (mg/dL) Final Performing Location LABORATORY [facility] - [address] [place] [address]
--- OUTSIDE RECORDS SUMMARY | 2023-09-15 10:01 | External Medical Summary ---
Author Name Unknown Address Unknown Organization K2I:LABORATORY [address] [place] [address] Laboratory Report Ordering Provider Test Date Status MONIQUE PEREZ 09/08/2023 12:07:10 Final Normal: <30 mg/g creatinine< br/>High: 30-300 mg/g creatinine
Very High: >300 mg/g creatinine
Nephrotic: >2200 mg/g creatinine Observation Date Value Abnormality Reference (Units ) Status Albumin, Urine 09/08/2023 12:07:10 69.20 (mg/dL) Final Creatinine, Urine 09/08/2023 12:07:10 126 (mg/dL) Final Albumin/Creatinine [Mass Ratio] in Urine 09/08/2023 12:07:10 549 Above high normal <30 (mg/g Creat) Final Performing Location LABORATORY [address] [place] [address]
--- OUTSIDE RECORDS SUMMARY | 2023-09-15 10:01 | External Medical Summary ---
Author Name Unknown Address Unknown Organization K2I:LABORATORY [address] [place] [address] Laboratory Report Ordering Provider Test Date Status MONIQUE PREEZ 09/08/2023 12:03:02 Final Observation Date Value Abnormality Reference (Units ) Status Troponin T 09/08/2023 12:03:02 63 Above high normal < =22 (ng/L) Final Performing Location LABORATORY [address] [place] [address]
--- OUTSIDE RECORDS SUMMARY | 2023-09-15 10:01 | External Medical Summary | Summary of Care ---
Author Name Unknown Organization [facility] Address [address] [place] [address] Phone [phone] Care Team Providers Care Equity Manager Name Role Phone Jaime Garcia MD Primary Care Provide r Reason for Referral * Evaluate & Treat - Unlimited Visits (Within 10 days (routine)) - Authorized Specialty Diagnoses / Procedures Referred By Darin lui Referred To Contact Speech Pathology / Speech Pathology Diagnoses Multiple myeloma in relapse (HCC) Rosalio Amaral MD [address] [place] [address] Referral ID Status Reason Start Date Expiration Date Visits Requested Visits Authorized [id number] Authorized Specialty Services Required 3 [phone] Question Answer Referral Priority Within 10 days (routine) Where should this appointment be scheduled? [facility] Comments Swallowing issues Reason for Visit * Reason Comments Follow Up Encounter Details Date Type Department Care Team (Late st Contact Info) Description 09/08/2023 9:30 AM EST Office [facility] UGARTE [address] [place] [address] Rosalio Amaral MD [address] [place] [address] Multiple myeloma in relapse (HCC)* Allergies Active Allergy Reactions Criticality Noted Date [...] at bedtime. 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 180 Tablet 1 07/11/2023 Active Insulin Glargine Solostar 100 UNIT/ML Subcutaneous Solution Pen-injector (Lantus SoloStar) Inject 10 Units under the skin every evening. 15 mL 3 07/19/2023 Active Pen Tamworth 32G X 4 MM Use as directed. [...] disease, without long-term current use of insulin ([facility]) Use as directed to check blood [...] morning. 100 Tablet 3 09/02/2023 Active Nystatin 775403 UNIT/ML Mouth/Throat SuspensionIndicati ons:Multiple myeloma in relapse [...] myeloma without remission 06/14/2014 Overview: Dr Rodriges/ [facility] DIRECTIVE INFORMATION 10/13/2006 Overview: No, [...] Sign Reading Time Taken Comments Blood Pressure 115/76 09/08/2023 10:10 AM EST Pulse 82 09/08/2023 10:10 AM EST Temperature 36.8 C (98.3 F) 09/08/2023 1 0:10 AM EST Respiratory Rate 18 09/08/2023 10:1 0 AM EST Oxygen Saturation 98% 09/08/2023 10: 10 AM EST room air Inhaled Oxygen Concentration - - Weight 73.8 kg (162 lb 11.2 oz) 023 10:10 AM EST Height 175.3 cm (5' 9") 09/08/2023 10:1 0 AM EST Body Mass Index 24.03 09/08/2023 10:10 AM EST documented in this encounter Progress Notes * Rosalio Amaral MD - 09/08/2023 9:09 AM EST CLINIC NOTES JERARDO WALTON MR #[id number] : 1970 09/08/2023 PATIENT REFERRED BY: Jaime Garcia MD. Also by Dr. Dariela Mathias, Dr. Lugo and Dr. Klein. HISTORY OF PRESENT ILLNESS: Mr. Walton is a 53-year-old seen for underlying myeloma and cardiac amyloid. 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 He presented to the emergency department with shortness of breath. He had a CT Angio on 10/22/2013 that showed innumerable lytic lesions. 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 His immunofixation showed free monoclonal lambda. His beta-2 microglobulin was 2.2. I am not sure if this was accurate. He did not have an albumin done at that time. I also could not find his initial presenting numbers. He had a bone marrow examination done on 05/20/2012 with 41% plasma cells. 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 He underwent a skeletal survey in 2014 that showed large defects in the ischium, pubic ring compared to earlier abnormalities, as wellas iliac bone without fracture. He was treated with CyBorD. He experienced some toxicity. He was then switched to Revlimid and Velcade. He was seen by Gastroenterology, having diarrhea for several months. He had been on and off chemo. Was negative and then positive for C.diff. He had issues with his bowels on vancomycin. It was felt perhaps to be metformin added to the Revlimid. He had been seeing Dr. Davis. The patient had a soft tissue mass in his abdomen with FDG activity. It was initially thought to represent a carcinoid. It was not metabolically active. In July 2019, he had an M-spike, proBNP, sensitive troponins that were all in the 20s. He had an elevated LD. He had a low kappa/lambda. He had a PET scan in September of 2019 with a Ga-68 Dotatate study. There were no somatostatin receptors for malignancy. He had a single mesenteric soft tissue with no radiotracer. He had a moderate left pleural effusion. It was negative for carcinoid. He had also been followed by Dr. Klein suggesting a change in his therapy if his light chain went above 50. He had been on Velcade and then was changed to carfilzomib along with daratumumab because of for neuropathy. Carfilzomib was started at 27, raised up to 45. Weekly changes were made due to his neuropathy from Velcade. He had a repeat Echo. He was being considered for a change in therapy. In January of 2021, he had no paraprotein on his immunofixation. His lambda was 71. ProBNP was 1,400. Creatinine 1.5. He had a followup PET scan in May of 2021 which showed a right pleural effusion. It sounds like he had an exudative tap described as chance-like fluid, being darker. He had also been on Pomalyst in the past. He tried this. Had problems with dizziness, unable to tolerate it. He was continuing to have neuropathy. His regimen was every 2 weeks daratumumab along withdexamethasone, carfilzomib actually at 36 mg/meter. He was then lost to followup for a period of time. He has also been reviewed by Dr. Nam in 2019, felt as though he was stable. His creatinine staying around 2. He was reviewed by Dr. Klein who was okay with Kyprolis at 36, though could potentially be increased. He had COVID in 2021. He was severely hypogammaglobulinemic. He had not been on immunoglobulin replacement. He stayed up late playing poker on Tuesday nights. He had GI issues, having C.diff, finally testing negative. He has had elevated beta-2 microglobulinat 5.8 and had a negative immunofixation. No paraprotein. Light chain was 89 and 12.1. Of note, the patient was started on Hizentra. The patient's most recent laboratory studies: He had a proBNP of 3,500 on 09/21/2022. Protein-creatinine ratio was elevated at 378. His albumin-creatinine ratio was 162, elevated. He had a urine M-spike of 5.8 mg/dl. Free lambda was 116. His quantitative IgG at that time was 598. Of note, the patient's most recent creatinine from January 20 was 1.4. Calcium slightly high at 10.3. The SPEP showed a gamma fraction too small. Quantitative IgG was 445, lambda at 105. LD within normallimits. He did have a serum immunofixation IgG kappa with a urine immunofixation showed free lambda monoclonal. Note the difference with the serum immunofixation and the urine. The patient had received on April 22 dexamethasone 20 as well as daratumumab. The patient had received daratumumab in November, December, just a single dose in January. He had 2 doses in February and then 2 in March and is due on the in April. The patient did have a severe left ventricular wall thickness concentric with mild diffuse hypokinesis, left ventricular diastolic dysfunction grade 3. He had a brief period several months ago where he was up to 50, but the ejection fraction has now decreased a bit. The patient has been seen by speech therapy. Was to have a barium swallow. He ultimately deferred this. Since September, his paraproteins in terms of his lambda light chain has been stable from 116 to currently 105. The patient notes he used to go down the road fishing, which he feels as though he is too weak to do now. He has noted some increasing weakness in his legs he has been attributing to the amiodarone. He also feels as though his swelling issue may be due to amiodarone also. However, both of these maybe related to his amyloid with low cardiac output perfusion and neuropathy. INTERIM: The patient was last reviewed 05/05/2023 he had been off therapy for a period of time. At that time, he just started back on daratumumab. He had his carfilzomib held because of possible issues with congestive heart failure and a 5% drop off of his ejection fraction clinically having developed heart failure. He had actually even had his Xgeva held. He was having issues with infections andhad been on multiple rounds of antibiotics. Family members in his house had been sick. He had been admitted with septic shock, pneumonia, parainfluenza. Required Levophed, Zosyn and azithromycin. Creatinine had gone up to 2.8. An Echo done at that time showed a 50% to 58% ejection fraction. He had an increased LD. He was going to go back to weekly daratumumab. If his ejection fraction was improved, he could put possibly go back on carfilzomib and he was to be considered for CAR-T therapy. Th this or go to his usual at he is interested in taking He was hypotensive He was reviewed reviewed by Cardiology who was impressed that he had significant hypotension and felt as though He likely had autonomic dysfunction, he is also having swallowing issues despite a negative swallowing study in April of 2023 He has not been evaluated by speech pathology He has been off chemo since around June He was supposed to start on Cytoxan but had deferred this or go back to his usual weekly daratumumab He has decreased appetite with occasional vomiting He is due for cart T evaluation in early September 2023 MEDICAL ALLERGIES: Atorvastatin, Zetia. MEDICATIONS: Current Outpatient Medications Medication Sig Dispense Refill NSS 0.9 % SOLN with daratumumab 400 MG/20ML SOLN 16 mg/kg Administer intravenously every 14 days. CPAP every night at bedtime. oxygen IN GAS Use 2 L/min(Oxygen) as directed at bedtime. 1 Each 0 OneTouch Ultra Blue In Vitro Strip (Glucose Blood) Use as directed daily. Test once daily DxE11.9 100 Strip 5 Lancets Test once daily DxE11.9. 100 Each 5 Albuterol Sulfate HFA 108 (90 Base) MCG/ACT Inhalation Aerosol Solution Inhale 2 Puffs by mouth every 6 hours as needed for Cough or Shortness of Breath. (Patient not taking: Reported on 09/02/2023) 54 g 1 Acyclovir 400 MG Oral [...] tabs 2 times monthly 10 Tablet 5 Polyethylene Glycol 3350 17 GM Oral Packet Take 1 Packet by mouth daily as needed. oxyCODONE-Acetaminophen 5-325 MG Oral Tablet (Percocet) Take 1 Tablet by mouth every 6 hours as needed for Pain, Severe. 10 Tablet 0 Silodosin 8 MG Oral Capsule (Rapaflo) Take 1 Capsule by mouth in the morning. 30 Capsule 1 Levothyroxine Sodium 50 MCG Oral Tablet [...] taking: Reported on 09/02/2023) 10 Tablet 5 Tenofovir Alafenamide Fumarate 25 [...] skin every evening. 15 mL 3 Pen Tamworth 32G X 4 MM Use as directed. [...] EVERY DAYIN THE MORNING 90 Tablet 2 Dexcom G7 Sensor Use as directed to check blood sugars daily. Change every 10 days 9 Each 3 Midodrine HCl 10 MG Oral Tablet (Proamatine) Take 2 tablet shortly before or upon rising in the morning, at midday, and in the late afternoon (not later than 6 PM) 600 Tablet 3 Torsemide 10 MG Oral Tablet (Demadex) Take 1 Tablet by mouth in the morning every other day. 100 Tablet 3 Potassium Chloride ER 10 MEQ Oral Tablet Extended Release Take 1 Tablet by mouth in the morning. 100 Tablet 3 No current facility-administered medications for this visit. PAST SURGICAL HISTORY: See note from 01/22/2019. PAST MEDICAL HISTORY: See note from 01/22/2019. FAMILY HISTORY: See note from 01/22/2019. REVIEW OF SYSTEMS: ECOG performance status: 0. Constitutional: Negative. See HPI for pertinent positives otherwise negative review of systems. PHYSICAL EXAMINATION: HEENT: Normocephalic, atraumatic. EOMI. Mucous membranes moist. Neck was supple. There was no cervical, supraclavicular, or axillary adenopathy. Lungs: Clear to auscultation andpercussion. Heart: Regular rate and rhythm. Abdomen flat. Bowel sounds present. No hepatosplenomegaly. No inguinal adenopathy. No distal edema. No focal or lateralizing deficits. Results for orders placed or performed in visit on 07/25/23 CBC Result Value Ref Range WBC 6.48 4.00 - 10.80 K/uL RBC 4.27 4.50 - 5.25 M/uL HGB 13.8 (L) 14.0 - 16.8 g/dL HCT 42.5 40.0 - 48.4 % MCV 99.5 82.0 - 99.5 fL MCH 32.3 27.0 - 34.0 pg MCHC 32.5 32.0 - 36.0 g/dL RDW 15.8 11.5 - 15.5 % PLT 289 140 - 400 K/uL MPV 9.5 6.6 - 11.1 fL IMPRESSION: Patient with stable protein number but symptomatically worsening. Questionable possibledrug effect. He still has rather bad neuropathy. I am not sure we can restart Velcade. He has had adrop-off in his ejection fraction and had cardiomyopathy, not sure we can go back to carfilzomib and Dr. Klein mentioned possible Tecvayli but did not mention CAR-T. Status post recent salmonella sepsis hospitalized at the [facility] Likely autonomic dysfunction, manifested by orthostatic hypotension, dysphagia, gastric emptying PLAN: For possible cart Resume chemo He was to get Cytoxan-IE CyBorD This was a 30-minute visit with more than half the time spent counseling and/or coordinating care. This was a telephone visit. Rosalio Amaral MD documented in this encounter Nursing Notes * Praful Ramirez MED ASSIST - 09/08/2023 10:07 AM EST Cancer Nutrition Screening Tool 1. Weight loss of 5 lb or more in the past month? No 2. Moderate to severe decrease in food intake in the past month? No 3. Trouble chewing or swallowing? Yes 4. Diagnosed with any of the following types of cancer? No Lung, Head and neck, Upper GI (including stomach and pancreas), Colorectal 5. Bone marrow transplant patient? No 6. Presence of feeding tube or scheduled to have one placed (NG, PEG, or jejunostomy)? No 7. Would this be the patients first visit with Dietitian? No Pt does not wish to be referred to a dietitian at this time JL Pt is roomed in exam room #13 Patient was instructed to not get up on the exam table/exam chair until directed and assisted by their provider; patient is to remain seated in the chair/ wheelchair/ exam table/ exam chair for fall prevention and safety reasons. Patient is aware to have assistance to step down off exam table/exam chair with personnel. Patient voiced full comprehension of instructions. documented in this encounter Plan of Treatment Upcoming Encounters Date Type Department Care Team (Late st Contact Info) Description 09/08/2023 12:30 PM EST Nurse Only Ancillary [facility] [place] [address] [facility] [place] [address] [facility] Nurse Cancer [address] [place] [address] Arrived 09/09/2023 4:00 PM EST [facility] Visit ising at [place], [facility] [place] [address] Sulma Seth, RN [address] [facility] [place] [address] 09/13/2023 9:00 AM EST Office Visit Cardiology, [facility] [address] [facility] [place] [address] Beth Salter CRNP [address] [place] [address] [place] [phone] 09/13/2023 3:30 PM EST Telemedicine Pharmacy, [address] [place] [address] [place] [address] 09/14/2023 8:50 AM EST Anticoagulation Pharmacy, [address] [place] [address] [place] [address] 10/11/2023 1:00 PM EST Office Visit [facility] [place] [address] [place] [address] Rosalio Amaral MD [address] [place] [address] 10/24/2023 1:30 PM EST Office Visit Urology, [facility] [address] [facility] [place] [address] Devyn Paniagua MD [address] [place] [address] [place] [address] 11/10/2023 9:00 AM EST Office Visit [facility] [place] [address] [place] [address] Rosalio Amaral MD [address] [place] [address] 11/23/2023 9:40 AM EDT Office Visit NephrologyCarla [address] [facility] [place], [place] [address] Armando Cook MD [address] [facility] [place] [address] 12/09/2023 3:30 PM EDT Office Visit [facility] [place] [address] [facility] [place] [address] Rosalio Amaral MD [address] [facility] [place] [address] Scheduled Orders Name Type Priority Associated Diagnoses Order Schedule CBC WITH WBC DIFFERENTIAL Lab STAT Multiple myeloma in relapse (HCC) Every Month for 66 Occurrences starting 09/08/2023 until 09/08/2023 COMPREHENSIVE METABOLIC PANEL Lab STAT Multiple myeloma in relapse (HCC) Every Month for 66 Occurrences starting 09/08/2023 until 09/08/2023 IMMUNOGLOBULIN QUANTITATIVE Lab STAT Multiple myeloma in relapse (HCC) Every Month for 66 Occurrences starting 09/08/2023 until 09/08/2023 URINE PROTEIN ELECTROPHORESIS REFLEX PROFILE, RANDOM URINE Lab STAT Multiple myeloma in relapse (HCC) Every Month for 66 Occurrences starting 09/08/2023 until 09/08/2023 LD Lab STAT Multiple myeloma in relapse (HCC) Every Month for 66 Occurrences starting 09/08/2023 until 09/08/2023 SERUM FREE LIGHT CHAINS Lab STAT Multiple myeloma in relapse (HCC) Every Month for 66 Occurrences starting 09/08/2023 until 09/08/2023 SERUM PROTEIN ELECTROPHORESIS REFLEX PROFILE Lab STAT Multiple myeloma in relapse (HCC) Every Month for 66 Occurrences starting 09/08/2023 until 09/08/2023 FERRITIN Lab STAT Multiple myeloma in relapse (HCC) Every Month for 66 Occurrences starting 09/08/2023 until 09/08/2023 PT INR Lab STAT Multiple myeloma in relapse (HCC) Every Month for 66 Occurrences starting 09/08/2023 until 09/08/2023 ALBUMIN / CREATININE RATIO, URINE Lab STAT Multiple myeloma in relapse (HCC) Every Month for 66 Occurrences starting 09/08/2023 until 09/08/2023 BNP, NT-PRO Lab STAT Multiple myeloma in relapse (HCC) Every Month for 66 Occurrences starting 09/08/2023 until 09/08/2023 TROPONIN T, HIGH SENSITIVITY Lab STAT Multiple myeloma in relapse (HCC) Every Month for 66 Occurrences starting 09/08/2023 until 09/08/2023 FLUORO UGI WITH SMALL BOWEL DOUBLE CONTRAST Medical Imaging Routine Multiple myeloma in relapse (HCC) Ordered: 09/08/2023 Scheduled Referrals Name Type Priority Associated Diagnoses Orde r Schedule SPEECH PATHOLOGY REFERRAL OP Referral Within 10 days (routine) Multiple myeloma in relapse (HCC) Ordered: 09/08/2023 Health Maintenance Due Date Last Done Comments [...] Additional history exists CKD HGB USE SMARTSET 14515 08/16/202408/16, 07/25/2023, 07/25/2023, Additional history exists CKD PHOS USE SMARTSET 58129 08/16/2024 12/01/2023, 07/25/2023, 07/06/2023, Additional history exists [...] this encounter Medical Devices Implanted Type Area Recycling Director Device Identifier Shelf Expiration Date Model / Serial / Lot Port Power Mri W/8fr Cath - [id number] Implanted:Qty: 1 on 09/26/2020 by Simone Michelle MD at OR [facility] Right: Chest CR BARD : PERIPHERAL VASCULAR 10/12/2021 [id number] / / [id number] Description:right IJ Lens Intraoc 19.0 - [id number] - [id number] Implanted:Qty: 1 on 02/03/2021 by Chris Sexton MD at OR [facility] Right: Eye [employer] 09/11/2025 [id number] / [id number] / Lens Intraoc 19.0 - [id number] - [id number] Implanted:Qty: 1 on 02/24/2021 by Chris Sexton MD at OR [facility] Left: Eye [employer] 10/12/2025 [id number] / [id number] / [id number] System Urolift - [id number] Implanted:Qty: 3 on 03/17/2023 by Devyn Paniagua MD at OR [facility] N/A: Urethra [employer] 11/03/2023 [id number] / / [id number] documented as of this encounter Visit Diagnoses [...] and were consensually agreed upon. Care Teams Equity Manager Relationship Specialty Start Date End Date Jaime Garcia MD [address] [place] [address] [place] [address] PCP - General Family Medicine 10/15/20 documented as of this encounter
--- OUTSIDE RECORDS SUMMARY | 2023-09-15 10:01 | External Medical Summary ---
Author Name Unknown Address Unknown Organization [facility]:LAB[facility] [address] [place] [address] Laboratory Report Ordering Provider Test Date Status MONIQUE PEREZ 09/08/2023 12:03:02 Final Exclude Heart Failure: <300 pg/mL
Diagnose Heart Failure:
Age <50 yr: >450 pg/mL
50-75 yr: >900 pg/mL
>75 yr: >1800 pg/mL
GFR is 30-59 mL/min: >1200 pg/mL or Age- adjusted values
GFR <30 mL/min: do not use, not reliable

Prognostic threshold: 1000 pg/mL Observation Date Value Abnormality Reference (Units ) Status BNP, Pro-hormone 09/08/2023 12:03:02 [address] Above high no rmal <300 (pg/mL) Final Performing Location LABORATORY [address] [place] [address]
--- OUTSIDE RECORDS SUMMARY | 2023-09-15 10:01 | External Medical Summary ---
Author Name Unknown Address Unknown Organization K[facility]ATORY [facility] [address] [facility] [address] Laboratory Report Ordering Provider Test Date Status MONIQUE PEREZ 09/08/2023 12:07:10 Final Observation Date Value Abnormality Reference (Units) Status PARAPROTEIN NORMAL/ABNORMAL 09/08/2023 12:07:10 Abnormal Abnormal Normal Final Protein, Urine 09/08/2023 12:07:10 114 (mg/dL) Final Protein Fractions [Interpretation] in Urine by Electrophoresis Narrative 09/08/2023 12:07:10 Abnormal. A paraprotein is present that has been previously identified as a free lambda light chain (Bence Correia protein). Final Albumin, Urine 09/08/2023 12:07:10 81.7 (mg/dL) Final Globulin [Mass/volume] in Urine by Electrophoresis 09/08/2023 12:07:10 32.3 (mg/dL) Final Protein.monoclonal [Mass/volume] in Urine 09/08/2023 12:07:10 5.6 (mg/dL) Final Performing Location LABORATORY [facility] - [facility] [place] [address] [place] [address]
--- OUTSIDE RECORDS SUMMARY | 2023-09-15 10:01 | External Medical Summary ---
Author Name Unknown Address Unknown Organization [facility] - [address] [place] [address] Laboratory Report Ordering Provider Test Date Status MONIQUE PEREZ 09/08/2023 12:03:02 Final Observation Date Value Abnormality Reference (Units ) Status BUN 09/08/2023 12:03:02 18 6-20 (mg/dL) Final Creatinine 09/08/2023 12:03:02 1.5 Above high normal 0.6-1.2 (mg/dL) Final Glomerular filtration rate/1.73 sq M.predicted [Volume Rate/Area] in Serum, Plasma or Blood by Creatinine-based formula (CKD-EPI) 09/08/2023 12:03:02 58 Below low normal >=60 (mL/min) Final eGFR is calculated based on the CKD-EPI 2020 equation SODIUM 09/08/2023 12:03:02 138 135-146 (m mol/L) Final Potassium 09/08/2023 12:03:02 4.7 3.5-5.1 (m mol/L) Final Cl 09/08/2023 12:03:02 101 98-107 (mm ol/L) Final CO2 09/08/2023 12:03:02 29 22-32 (mmo l/L) Final Anion gap 09/08/2023 12:03:02 8 7-15 (mmol /L) Final Glucose 09/08/2023 12:03:02 90 70-120 (mg /dL) Final Albumin 09/08/2023 12:03:02 3.9 3.8-5.0 (g /dL) Final AST (Aspartate aminotransferase) 09/08/2023 12:03:02 15 10-50 (U/L) Final Alk Phos 09/08/2023 12:03:02 123 35-130 (U/ L) Final Bilirubin, Total 09/08/2023 12:03:02 0.7 <=1 .2 (mg/dL) Final Calcium 09/08/2023 12:03:02 9.2 8.4-10.2 ( mg/dL) Final Protein 09/08/2023 12:03:02 6.0 6.0-8.3 (g /dL) Final ALT (Alanine aminotransferase) 09/08/2023 12:03:02 12 10-50 (U/L) Final Performing Location LABORATORY [address] [place] [address]
--- OUTSIDE RECORDS SUMMARY | 2023-09-15 10:01 | External Medical Summary ---
Author Name Unknown Address Unknown Organization K02:[facility] - [address] [place] [address] Laboratory Report Ordering Provider Test Date Status MONIQUE PEREZ 09/08/2023 12:03:02 Final Observation Date Value Abnormality Reference (Units ) Status SYNC LEUKOCYTES IN BLOOD BY AUTOMATED COUNT 09/08/2023 12:03:02 10.15 4.00-10.80 (K/uL) Final Segs 09/08/2023 12:03:02 79.6 Above high normal 40.0-75.0 (%) Final Lymphs % 09/08/2023 12:03:02 6.0 Below low normal 18.0-42.0 (%) Final Monos 09/08/2023 12:03:02 11.6 Above high normal 1.0-11.0 (%) Final Eosinophils 09/08/2023 12:03:02 1.8 0.0-6.0 (%) Final Basos 09/08/2023 12:03:02 0.6 0.0-2.0 (%) Final Immature Granulocyte, Percent 09/08/2023 12:03:02 0.4 0.0-2.0 (%) Final Absolute Segs 09/08/2023 12:03:02 8.08 Above high normal 1.80-7.70 (K/uL) Final Lymphs, absolute 09/08/2023 12:03:02 0.61 Below low normal 1.00-4.80 (K/ul) Final Monos, Abs 09/08/2023 12:03:02 1.18 Above high normal 0.00-1.10 (K/uL) Final Eos, Abs 09/08/2023 12:03:02 0.18 0.00-0.70 (K/uL) Final Basos, Abs 09/08/2023 12:03:02 0.06 0.00-0.20 (K/uL) Final Immature Granulocytes, Number 09/08/2023 12:03:02 0.04 0.00-0.20 (K/uL) Final Performing Location [facility] [address] [place] [address] Dr. Tyree F[place]ITAS [address]
--- OUTSIDE RECORDS SUMMARY | 2023-09-15 10:01 | External Medical Summary ---
Author Name Unknown Address Unknown Organization K01:[facility] [place] - [address] [facility] [address] Laboratory Report Ordering Provider Test Date Status MONIQUE PEREZ 09/08/2023 12:03:02 Final Observation Date Value Abnormality Reference (Units) Status PARAPROTEIN NORMAL/ABNORMAL 3 12:03:02 Normal Normal Final Protein 3 12:03:02 5.4 Below low normal 6.0-8.3 (g/dL) Final Albumin/Protein.tota l [Pure mass fraction] in Serum or Plasma by Electrophoresis 3 12:03:02 2.96 Below low normal 3.30-4.40 (g/dL) Final Alpha 1 globulin/Protein.tot al [Pure mass fraction] in Serum or Plasma by Electrophoresis 3 12:03:02 0.29 0.10-0.30 (g/dL) Final Alpha 2 globulin/Protein.tot al [Pure mass fraction] in Serum or Plasma by Electrophoresis 3 12:03:02 1.11 Above high normal 0.60-1.00 (g/dL) Final Beta globulin/Protein.tot al [Pure mass fraction] in Serum or Plasma by Electrophoresis 3 12:03:02 0.70 Below low normal 0.80-1.30 (g/dL) Final Gamma globulin/Protein.tot al [Pure mass fraction] in Serum or Plasma by Electrophoresis 3 12:03:02 0.33 Below low normal 0.70-1.70 (g/dL) Final Protein Fractions [Interpretation] in Serum or Plasma by Electrophoresis Narrative 3 12:03:02 No paraprotein detected. See serum immunofixation results. Recommend urine electrophoresis and urine immnuofixation in follow-up, if clinically indicated. Final Performing Location [facility] [place] - [address] [facility] [address]
--- OUTSIDE RECORDS SUMMARY | 2023-09-15 10:01 | External Medical Summary ---
Author Name Unknown Address Unknown Organization K01:[facility] [place] - [address] [place] [address] Laboratory Report Ordering Provider Test Date Status MONIQUE PEREZ 09/08/2023 12:03:02 Final Observation Date Value Abnormality Reference (Units) Status PARAPROTEIN NORMAL/ABNORMAL 09/08/2023 12:03:02 Normal Normal Final Immunofixation for Serum or Plasma 09/08/2023 12:03:02 No monoclonal gammopathy detected. Final Performing Location [facility] [place] - [address] [place] [address]
--- OUTSIDE RECORDS SUMMARY | 2023-09-15 10:01 | External Medical Summary ---
Author Name Unknown Address Unknown Organization K02:[facility] [address] [place] [address] Laboratory Report Ordering Provider Test Date Status MONIQUE PEREZ 09/08/2023 12:03:02 Final Observation Date Value Abnormality Reference (Units ) Status WBC, Total 09/08/2023 12:03:02 10.15 4.00-10.80 (K/uL) Final RBC 09/08/2023 12:03:02 3.53 4.50-5.25 (M/uL) Final Hemoglobin 09/08/2023 12:03:02 11.4 Below low normal 14.0-16.8 (g/dL) Final HCT 09/08/2023 12:03:02 35.8 Below low normal 40.0-48.4 (%) Final MCV 09/08/2023 12:03:02 101.4 82.0-99.5 (fL) Final MCH 09/08/2023 12:03:02 32.3 27.0-34.0 (pg) Final MCHC 09/08/2023 12:03:02 31.8 32.0-36.0 (g/dL) Final RDW 09/08/2023 12:03:02 16.6 11.5-15.5 (%) Final Platelets 09/08/2023 12:03:02 367 140-400 (K/uL) Final MPV 09/08/2023 12:03:02 9.6 6.6-11.1 (fL) Final Nucleated erythrocytes/100 leukocytes [Ratio] in Blood by Automated count 09/08/2023 12:03:02 0 <=0 (/100 WBCs) Final Performing Location [facility] 1 - [address] [place] [address]
--- OUTSIDE RECORDS SUMMARY | 2023-09-15 10:01 | External Medical Summary ---
Author Name Unknown Address Unknown Organization K2I:LABORATORY [facility] - [address] [place] [address] Dr. Tyree FREITAS [address] Laboratory Report Ordering Provider Test Date Status MONIQUE PEREZ 09/08/2023 12:03:02 Final Observation Date Value Abnormality Reference (Units ) Status LDH 09/08/2023 12:03:02 169 <=250 (U/L ) Final Performing Location LAB[facility]ATORY [facility] - [address] [place] [address] Dr. Tyree FREITAS [address]
--- OUTSIDE RECORDS SUMMARY | 2023-09-15 10:01 | External Medical Summary | Summary of Care ---
Author Name Unknown Organization [facility] Address [address] [place] [address] Phone [phone] Care Team Providers Care Historic Preservationist Name Role Phone Jaime Garcia MD Primary Care Provide r Reason for Visit * Reason Comments Dosage Adjustment Via Phone (anticoag Cl inic) Encounter Details Date Type Department Care Team (Late st Contact Info) Description 09/07/2023 9:30 AM [facility] Telemedicine Pharmacy, [address] [place] [phone] [place] [address] Type 2 diabetes mellitus with stage 3b chronic kidney disease, without long-term current use of insulin ([facility])* Allergies Active Allergy Reactions Criticality Noted Date Comments Atorvastatin Muscle pain High 03/30/2019 Ezetimibe Muscle pain High 01/25/2020 documented as of this encounter (statuses as of 09/07/2023) Medications Medication Sig Dispensed Refills Start Date [...] A1c goal of less than 7.0% ([facility]) Use as directed daily. Test once daily DxE11.9 100 Strip 5 03/02/2021 Active LancetsIndications :Type 2 diabetes mellitus with hemoglobin A1c goal of less than 7.0% ([facility]) Test once daily DxE11.9. 100 Each 5 03/02/2021 Active Albuterol Sulfate HFA 108 (90 Base) MCG/ACT Inhalation Aerosol SolutionIndication s:Acute bronchitis, antibiotics not indicated Inhale 2 Puffs by mouth every 6 hours as needed for Cough or Shortness of Breath. 54 g 1 06/30/2021 Active Additional Information Patient not taking.Reported on 09/02/2023 Acyclovir 400 MG Oral Tablet (Zovirax)Indicatio ns:Lambda light chain myeloma ([facility]) Take one tablet once daily 180 Tablet [...] Information Patient taking differently: 50 mcg Oral [id number], Reported on 04/14/2023 Warfarin Sodium 2.5 MG Oral Tablet (Coumadin)Indicati ons:Atrial fibrillation, unspecified type (HCC),Anticoagulat ion management encounter,longterm current use of anticoagulant therapy,Paroxysmal atrial fibrillation [...] A1c goal of less than 7.0% ([facility]) Take 2 Tablets by mouth in the morning. 180 Tablet 1 07/11/2023 Active Insulin Glargine Solostar 100 UNIT/ML Subcutaneous Solution Pen-injector (Lantus SoloStar) Inject 10 Units under the skin every evening. 15 mL 3 07/19/2023 Active Pen [place] 32G X 4 MM Use as directed. [...] the morning. 100 Tablet 3 09/02/2023 Active documented as of this encounter (statuses as of 09/07/2023) Active Problems Problem Noted Date Diagnosed Date [...] remission 06/14/2014 Overview: Dr Rodriges/ [facility] ADVANCE DIRECTIVE INFORMATION 10/13/2006 Overview: No, Advance Directive brochure offered , patient declined. Degeneration of lumbosacral intervertebral disc 02/19/2005 documented as of this encounter (statuses as of 09/07/2023) Resolved Problems Problem Noted Date Diagnosed Date [...] as of this encounter (statuses as of 09/07/2023) Immunizations Name Administration Dates Next Due COVID-19, [...] encounter Progress Notes * Barbara Jiménez, [facility] - 09/07/2023 9:41 AM EST Images from the original note were not included. Diabetes Telephone Follow - Up 09/07/2023 Patient Phone Numbers - Reason for contacting patient: BG Check in/Dexcom review - Current Diabetic Medications: Metformin ER 500mg - 2 tablets daily START Lantus 10 units daily eGFR 62 as of 06/27/23 - Glucose review/ SMBG: Therapy Management Assessment/Plan: 1) Diabetes: Patient successfully obtained Dexcom sensors from [place], much more affordable this way. Of note, readings very low. States he is still taking Lantus upon hospital discharge, however eating much less. Instructed to HOLD Lantus and this time. Telephonic f/u scheduled again next week to assess readings OFF of insulin. Discussed rule of 15's and how to correct a low blood sugar by drinking/eating 15 grams of carbs and testing BG15 minutes later. If BG is still low or if still having symptoms of hypoglycemia, repeatthe process. Medication Changes:Yes Diabetic Medications: Metformin ER 500mg - 2 tablets daily HOLD Lantus 10 units daily eGFR 62 as of 06/27/23 Follow up in 6 days Barbara Jiménez [facility], Pharm D Clinical Pharmacist Medication Therapy Management [facility] 09/07/2023, 9:51 AM documented in this encounter Plan of Treatment Upcoming Encounters Date Type Department Care Team (Late st Contact Info) Description 09/08/2023 9:30 AM EST Office Visit [facility] Tyree UGARTE [address] [facility] [place] [address] Rosalio Amaral MD [address] [facility] [place] [address] 09/09/2023 4:00 PM EST Home Visit [facility] [address] [place] [address] Sulma Seth, BOBBY [address] [facility] [place] [address] 09/13/2023 9:00 AM EST Office Visit Cardiology, [facility] [address] [place] [address] Beth Salter CRNP [address] [place] [address] [place] [phone] 09/13/2023 3:30 PM EST Telemedicine Pharmacy, [address] [place] [phone] [place] [address] 09/14/2023 8:50 AM EST Anticoagulation Pharmacy, [address] [place] [address] [place] [address] 10/24/2023 1:30 PM EST Office Visit Urology, [facility] [address] [facility] [place] [address] Devyn Paniagua MD [address] [facility] [place] [address] [place] [address] 11/23/2023 9:40 AM EDT Office Visit Nephrology, [facility] [address] [facility] [place] [address] Armando Cook MD [address] [place] [address] Health Maintenance Due Date Last Done Comments [...] Additional history exists CKD HGB USE SMARTSET 10007 08/16/202408/16, 07/25/2023, 07/25/2023, Additional history exists CKD PHOS USE SMARTSET 17945 08/16/2024 1201/2023, 07/25/2023, 07/06/2023, Additional history exists [...] this encounter Medical Devices Implanted Type Area Retail Pos Specialist Device Identifier Shelf Expiration Date Model / Serial / Lot Port Power Mri W/8fr Cath - [id number] Implanted:Qty: 1 on 09/26/2020 by Simone Michelle MD at OR [facility] Right: Chest CR BARD : PERIPHERAL VASCULAR 10/12/2021 [id number] / / [id number] Description:right IJ Lens Intraoc 19.0 - [id number] - [id number] Implanted:Qty: 1 on 02/03/2021 by Chris Sexton MD at OR [facility] Right: Eye [employer]OM[employer] 09/11/2025 [id number] / [id number] / Lens Intraoc 19.0 - [id number] - [id number] Implanted:Qty: 1 on 02/24/2021 by Chris Sexton MD at OR [facility] Left: Eye BAUSCH [employer] LOMB 10/12/2025 [id number] / [id number] / [id number] System Urolift - [id number] Implanted:Qty: 3 on 03/17/2023 by Devyn Paniagua MD at OR [facility] N/A: Urethra [employer] 11/03/2023 [id number] / / [id number] documented as of this encounter Visit Diagnoses [...] and were consensually agreed upon. Care Teams Historic Preservationist Relationship Specialty Start Date End Date Jaime Garcia MD [address] [place] [address] [place] [address] PCP - General Family Medicine 10/15/20 documented as of this encounter
--- OUTSIDE RECORDS SUMMARY | 2023-09-15 10:01 | External Medical Summary | Summary of Care ---
Author Name Unknown Organization [facility] Address [address] [place] [address] Phone [phone] Care Team Providers Care Plant Controls Specialist Name Role Phone Jaime Garcia MD Primary Care Provide r Reason for Referral * Evaluate & Treat - Unlimited Visits (Within 10 days (routine)) - Authorized Specialty Diagnoses / Procedures Referred By Darin lui Referred To Contact Speech Pathology / Speech Pathology Diagnoses Multiple myeloma in relapse (HCC) Rosalio Amraal MD [address] [place] [address] Referral ID Status Reason Start Date Expiration Date Visits Requested Visits Authorized [id number] Authorized Specialty Services Required 3 [phone] Question Answer Referral Priority Within 10 days (routine) Where should this appointment be scheduled? [facility] Comments Swallowing issues Reason for Visit * Reason Comments Follow Up Encounter Details Date Type Department Care Team (Late st Contact Info) Description 09/08/2023 9:30 AM EST Office Visit [facility] Tyree UGARTE [address] [place] [address] Rosalio Amaral MD [address] [place] [address] Multiple myeloma in relapse (HCC)* Allergies Active [...] at bedtime. 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 180 Tablet 1 07/11/2023 Active Insulin Glargine Solostar 100 UNIT/ML Subcutaneous Solution Pen-injector (Lantus SoloStar) Inject 10 Units under the skin every evening. 15 mL 3 07/19/2023 Active Pen [place] 32G X 4 MM Use as directed. [...] disease, without long-term current use of insulin ([facility]) Use as directed to check [...] morning. 100 Tablet 3 09/02/2023 Active Nystatin 275229 UNIT/ML Mouth/Throat SuspensionIndicati ons:Multiple myeloma in relapse [...] myeloma without remission 06/14/2014 Overview: Dr Rodriges/ [facility] ADVANCE DIRECTIVE INFORMATION 10/13/2006 Overview: [...] in this encounter Progress Notes * Rosalio Amarla MD - 09/08/2023 9:09 AM EST CLINIC NOTES JERARDO WALTON MR #[id number] : 1970 09/08/2023 PATIENT REFERRED BY: Jaime [...] was to be considered for CAR-T therapy. MEDICAL ALLERGIES: Atorvastatin, Zetia. MEDICATIONS: Current Outpatient [...] skin every evening. 15 mL 3 Pen [place] 32G X 4 MM Use as directed. [...] EVERY DAYIN THE MORNING 90 Tablet 2 [employer] G7 Sensor Use as directed to check [...] possible Tecvayli but did not mention CAR-T. PLAN: Will review and see if he thinks that there might be a preference. It sounds like possibly Tecvayli. I am not sure we have that set up here yet. I thing it would be a hassle for him to get downto [place] for this weekly, but we will schedule monthly followups with laboratory studies. This was a 30-minute visit with more than half the time spent counseling and/or coordinating care. This was a telephone visit. Rosalio Amaral MD documented in this encounter Nursing Notes * Praful Ramirez, TESS ASSIST - 09/08/2023 10:07 AM EST Cancer [...] EST Nurse Only Ancillary Hematology/[facility]cology [facility] [address] [place] [address] [place], [facility] Nurse Cancer [address] [place] [address] 09/09/2023 4:00 PM EST Home Visit isinger at [facility] [address] [place] [address] Sulma Seth, BOBBY [address] [place] [address] 09/13/2023 9:00 AM EST Office Visit Cardiology, [facility] [address] [place] [address] Beth Salter CRNP [address] [place] [address] [place] [phone] 09/13/2023 3:30 PM EST Telemedicine Pharmacy, [address] [place] [address] [place] [address] 09/14/2023 8:50 AM EST Anticoagulation Pharmacy, [address] [place] [address] [place] [address] 10/24/2023 1:30 PM EST Office Visit Urology, [facility] [address] [place] [address] Devyn Paniagua MD [address] [address] [place] [address] 11/10/2023 9:00 AM EST Office Visit [facility] Tyree UGARTE [address] [place] [address] Rosalio Amaral MD [address] [place] [address] 11/23/2023 9:40 AM EDT Office Visit Nephrology, Carla Renae [address] [facility] [place] [address] Armando Cook MD [address] [place] [address] 12/09/2023 3:30 PM EDT Office Visit [facility] Tyree UGARTE [address] [place] [address] Rosalio Amaral MD [address] [place] [address] Scheduled Orders Name Type Priority Associated Diagnoses [...] Additional history exists CKD HGB USE SMARTSET 24035 08/16/202408/16, 07/25/2023, 07/25/2023, Additional history exists CKD PHOS USE SMARTSET 85781 08/16/2024 12/0 01/2023, 07/25/2023, 07/06/2023, Additional history [...] this encounter Medical Devices Implanted Type Area Receiving Tank Operator Device Identifier Shelf Expiration Date Model / Serial / Lot Port Power Mri W/8fr Cath - [id number] Implanted:Qty: 1 on 09/26/2020 by Simone Michelle MD at OR [facility] Right: Chest CR BARD : PERIPHERAL VASCULAR 10/12/2021 [id number] / / [id number] Description:right IJ Lens Intraoc 19.0 - [id number] - [id number] Implanted:Qty: 1 on 02/03/2021 by Chris Sexton MD at OR [facility] Right: Eye BAUSCH & LOMB 09/11/2025 [id number] / [id number] / Lens Intraoc 19.0 - [id number] - [id number] Implanted:Qty: 1 on 02/24/2021 by Chris Sexton MD at OR [facility] Left: Eye BAUSCH & LOMB 10/12/2025 [id number] / [id number] / [id number] System Urolift - [id number] Implanted:Qty: 3 on 03/17/2023 by Devyn Paniagua MD at OR [facility] N/A: Urethra [employer] 11/03/2023 [id number] / / [id number] documented as of this encounter Visit Diagnoses [...] and were consensually agreed upon. Care Teams Plant Controls Specialist Relationship Specialty Start Date End Date Jaime Garcia MD [address] [place] [address] [place] [address] PCP - General Family Medicine 10/15/20 documented as of this encounter
--- OUTSIDE RECORDS SUMMARY | 2023-09-15 10:01 | External Medical Summary ---
Author Name Unknown Address Unknown Organization K01:[facility] [place] - [facility] [place] [address] Laboratory Report Ordering Provider Test Date Status MONIQUE PEREZ 09/08/2023 12:03:02 Final Observation Date Value Abnormality Reference (Units ) Status Boutte light chains, Free, Serum 09/08/2023 12:03:02 7.86 3.30-19.40 (mg/L) Final Lambda light chains, free, Serum 09/08/2023 12:03:02 136.31 Above high normal 5.71-26.30 (mg/L) Final KAPPA LAMBDA FLC RATIO 09/08/2023 12:03:02 0.06 Below low normal 0.26-1.65 Final Performing Location LABORATORY [facility] - [facility] [place] [address]
--- OUTSIDE RECORDS SUMMARY | 2023-09-15 10:01 | External Medical Summary ---
Author Name Unknown Address Unknown Organization K2I:LABORATORY [facility] - [address] [place] [address] Dr. Tyree [place] [address] Laboratory Report Ordering Provider Test Date Status MONIQUE PEREZ 09/08/2023 12:03:02 Final Observation Date Value Abnormality Reference (Units ) Status Ferritin 09/08/2023 12:03:02 266 30-400 (ng /mL) Final Performing Location LABORATORY [address] Tyree [place] [address]
--- OUTSIDE RECORDS SUMMARY | 2023-09-15 10:02 | External Medical Summary ---
Author Name Unknown Address Unknown Organization : Laboratory Report Ordering Provider Test Date Status TASNEEM SLAUGHTER 09/06/2023 09:02:38 Final Therapeutic ranges for non-o perative patients:
Prophylaxsis/treatment of DVT: (Range:2.0-3.0)
Treatment of pulmonary embolism:(Range:2.0-3.0)
Prevention of systemic embolism from:
-tissue heart valves
-acute myocardial infarction
-valvular heart disease
-atrial fibrillation
(Range: 2.0-3.0)
Mechanical prosthetic valves: (Range: 2.5-3.5) Observation Date Value Abnormality Reference (Units ) Status INR in Capillary blood by Coagulation assay 09/06/2023 09:02:38 2.0 (INR) Final Performing Location
--- OUTSIDE RECORDS SUMMARY | 2023-09-15 10:02 | External Medical Summary | Summary of Care ---
Author Name Unknown Organization [facility] Address [address] [place] [address] Phone [phone] Care Team Providers Care Cell Tender Name Role Phone Jaime Garcia MD Primary Care Provide r Reason for Visit * Reason Onset Date Comments Medication Refill 09/06/2023 Encounter Details Date Type Department Care Team (Late st Contact Info) Description 09/06/2023 Refill Pharmacy, [address] [place] [phone] Jaime Garcia MD [address] [place] [address] [place] [phone] Allergies Active Allergy Reactions Criticality Noted Date [...] hemoglobin A1c goal of less than 7.0% ([facility]) Test once daily DxE11.9. 100 [...] Oral Tablet (Zovirax)Indicatio ns:Lambda light chain myeloma ([facility]) Take one tablet once daily [...] Information Patient taking differently: 50 mcg Oral [id number], Reported on 04/14/2023 Warfarin Sodium 2.5 MG Oral Tablet (Coumadin)Indicati ons:Atrial fibrillation, unspecified type (HCC),Anticoagulat ion management encounter,assisted current use of anticoagulant therapy,Paroxysmal atrial fibrillation [...] hemoglobin A1c goal of less than 7.0% ([facility]) Take 2 Tablets by mouth in the morning. 180 Tablet 1 07/11/2023 Active Insulin Glargine Solostar 100 UNIT/ML Subcutaneous Solution Pen-injector (Lantus SoloStar) Inject 10 Units under the skin every evening. 15 mL 3 07/19/2023 Active Pen [place] 32G X 4 MM Use as directed. [...] encounter Miscellaneous Notes * Telephone Encounter - Kasandra Jiménez RPh - 09/07/2023 9:53 AM EST Refused Prescriptions: Disp Refills Insulin Glargine Solostar 100 UNIT/ML Subc*15 mL 3 Sig: Inject 10 Units under the skin every evening.Refused By: KASANDRA JIMÉNEZReason for Refusal: RefillNot Appropriate documented in this encounter Plan of Treatment Upcoming Encounters Date Type Department Care Team (Samreen rincon Contact Info) Description 09/08/2023 9:30 AM EST Office Visit [facility] [address] [facility] [place] [address] Rosalio Amaral MD [address] [facility] [place] [address] 09/09/2023 4:00 PM EST Home Visit [facility], [facility] [address] [facility] [place] [address] Sulma Seth, BOBBY [address] [facility] [place] [address] 09/13/2023 9:00 AM EST Office Visit Cardiology, [facility] [address] [facility] [place] [address] Beth Salter CRNP [address] [place] [address] [place] [phone] 09/13/2023 3:30 PM EST Telemedicine Pharmacy, [address] [place] [phone] [place] [address] 09/14/2023 8:50 AM EST Anticoagulation Pharmacy, [address] [place] [phone] [place] [address] 10/24/2023 1:30 PM EST Office Visit Urology, [facility] [address] [facility] [place] [address] Devyn Paniagua MD [address] [place] [address] [place] [address] 11/23/2023 9:40 AM EDT Office Visit Nephrology, [facility] [address] [place] [address] Armando Cook MD [address] [place] [address] Health Maintenance Due Date Last Done Comments HIV Screening 1985 Hepatitis C Screening 01/29/1988 Cologuard 2015 Fecal Occult Blood Test 2015 Sigmoidoscopy 2015 COVID-19 Vaccine (3 - Pfizer risk series) 11/03/2021 10/06/2021, 06/23/2021 Depression Screening 01/05/2022 01/05/2021 Diabetic Foot Exam 12/14/2022 12/14/2021, 0 10/15/2020, 06/25/2019 HbA1c 01/05/2024 07/06/2023, 08/0 11/2022, 03/29/2023, Additional history exists GFR 02/21/2024 08/22/2023, 120 01/2023, 07/25/2023, Additional history exists Pneumococcal Vaccine: Pediatrics (0 to 5 Years) and At-Risk Patients (6 to 64 Years) (3 - PPSV23 or PCV20) 05/22/2024 05/13/2020, 05/22/2019 Albumin/Creatinine Ratio 06/22/2024 023, 05/27/2023, 03/25/2023, Additional history exists Diabetic Eye Exam 07/11/2024 07/11/2023, , 06/29/2021, Additional history exists TSH 07/25/2024 07/25/2023, 03/12, 01/31/2023, Additional history exists CKD HGB USE SMARTSET 97864 08/16/202408/16, 07/25/2023, 07/25/2023, Additional history exists CKD PHOS USE SMARTSET 13742 08/16/2024 120 01/2023, 07/25/2023, 07/06/2023, Additional history [...] this encounter Medical Devices Implanted Type Area A&P Technician Device Identifier Shelf Expiration Date Model / Serial / Lot Port Power Mri W/8fr Cath - [id number] Implanted:Qty: 1 on 09/26/2020 by Simone Michelle MD at OR [facility] Right: Chest CR BARD : PERIPHERAL VASCULAR 10/12/2021 [id number] / / [id number] Description:right IJ Lens Intraoc 19.0 - [id number] - [id number] Implanted:Qty: 1 on 02/03/2021 by Chris Sexton MD at OR [facility] Right: Eye [employer] 09/11/2025 [id number] / [id number] / Lens Intraoc 19.0 - [id number] - [id number] Implanted:Qty: 1 on 02/24/2021 by Chris Sexton MD at OR [facility] Left: Eye [employer]OM[employer] 10/12/2025 [id number] / [id number] / [id number] System Urolift - [id number] Implanted:Qty: 3 on 03/17/2023 by Devyn Paniagua MD at OR [facility] N/A: Urethra [employer] 11/03/2023 [id number] / / [id number] documented as of this encounter Advance Directives [...] and were consensually agreed upon. Care Teams Cell Tender Relationship Specialty Start Date End Date Jaime Garcia MD [address] [place] [address] [place] [phone] PCP - General Family Medicine 10/15/20 documented as of this encounter
--- OUTSIDE RECORDS SUMMARY | 2023-09-15 10:02 | External Medical Summary | Summary of Care ---
Author Name Unknown Organization [facility] Address [address] [place] [address] Phone [phone] Care Team Providers Care Antisqueak Worker Name Role Phone Jaime Garcia MD Primary Care Provide r Reason for Visit * Reason Comments Dosage Adjustment In Person (Anticoag Cl inic) Encounter Details Date Type Department Care Team (Latest Contact Info) Description 09/01/2023 8:40 AM EST Anticoagulation Pharmacy, [address] [place] [phone] [place] [address] PAF (paroxysmal atrial fibrillation) ([facility])*; Anticoagulation management encounter; senior living current use of anticoagulant therapy Allergies Active Allergy Reactions Criticality Noted Date Comments Atorvastatin Muscle pain High 03/30/2019 Ezetimibe Muscle pain High 01/25/2020 documented as of this encounter (statuses as of 09/01/2023) Medications Medication Sig Dispensed Refills Start Date [...] Use up to 16 weeks Given by [facility] 12 Packet 3 01/19/2021 Active [...] Information Patient taking differently: 50 mcg Oral [id number], Reported on 04/14/2023 Potassium Chloride ER 10 MEQ Oral Tablet Extended ReleaseIndications :Chronic diastolic congestive heart failure (HCC) TAKE ONE TABLET BY MOUTH EVERY DAY 90 Tablet 3 12/13/2022 12/13/19 24 Active Warfarin Sodium 2.5 MG Oral Tablet (Coumadin)Indicati ons:Atrial fibrillation, unspecified type (HCC),Anticoagulat ion management encounter,senior living current use of anticoagulant therapy,Paroxysmal atrial fibrillation [...] evening. 15 mL 3 07/19/2023 Active Pen [place] 32G X 4 MM Use as directed. [...] 90 Tablet 2 08/31/2023 08/30/20 24 Active documented as of this encounter (statuses as of 09/01/2023) Active Problems Problem Noted Date Diagnosed Date [...] myeloma without remission 06/14/2014 Overview: Dr Rodriges/ [facility] ADVANCE DIRECTIVE INFORMATION 10/13/2006 Overview: No, Advance Directive brochure offered , patient declined. Degeneration of lumbosacral intervertebral disc 02/19/2005 documented as of this encounter (statuses as of 09/01/2023) Resolved Problems Problem Noted Date Diagnosed Date [...] as of this encounter (statuses as of 09/01/2023) Immunizations Name Administration Dates Next Due COVID-19, [...] of this encounter Progress Notes * Barbara Jiménez RPh - 09/01/2023 8:34 AM EST Medication Therapy Disease Management - Anticoagulation Patient: Jerardo Ochoa Jr. | : 1970 Subjective Patient-Reported Symptoms: Patient Findings Negatives: Signs/symptoms of thrombosis, Signs/symptoms of bleeding, Change in health, Change in alcohol use, Change in activity, Upcoming invasive procedure, Missed doses, Extra doses, Change in medications, Change in diet/appetite, Bruising Objective Current Warfarin Dose As of 09/01/2023 Warfarin maintenance plan: 1.25 mg (2.5 mg x 0.5) every day INR Result As of 09/01/2023 INR goal: 2.0-3.0 INR used for dosin.1 (09/01/2023) Assessment & Plan Warfarin Plan As of 09/01/2023 Full warfarin instructions: 1.25 mg every day No change documented: Barbara Jiménez RPh Next INR check: 09/06/2023 Repeat PT/INR in 5 day(s) Weekly dose: not changed Additional Dosing Information: Description AMIO start 10/29/22 - 11/22/22 BID then QD after AMIO STOPPED 05/31 Barbara Jiménez RPh Clinical Pharmacist 09/01/2023, 8:34 AM documented in this encounter Plan of Treatment Upcoming Encounters Date Type Department Care Team (Late st Contact Info) Description 09/02/2023 8:30 AM EST Office Visit Cardiology, [facility] [address] [place] [address] Beth Gibbs CRNP [address] [place] [address] 09/06/2023 8:50 AM EST Anticoagulation Pharmacy, [address] [place] [phone] [place] [address] 09/08/2023 9:30 AM EST Office Visit [facility] [address] [facility] [place] [address] Rosalio Amaral MD [address] [facility] [place] [address] 09/09/2023 4:00 PM EST Home Visit [facility], [facility] 132 [facility] [place] [address] Sulma Seth RN 132 [facility] [place] [address] 09/13/2023 9:00 AM EST Office Visit Cardiology, [facility] [address] [facility] [place] [address] Beth Salter CRNP [address] [place] [phone] 11/23/2023 9:40 AM EDT Office Visit Nephrology, [facility] [place], [place] [address] Armando Cook MD 200 [facility] [place], [place] [address] Health Maintenance Due Date Last Done Comments [...] Additional history exists CKD HGB USE SMARTSET 52813 08/16/202408/16, 07/25/2023, 07/25/2023, Additional history exists CKD PHOS USE SMARTSET 67765 08/16/2024 1201/2023, 07/25/2023, 07/06/2023, Additional history exists [...] this encounter Medical Devices Implanted Type Area Fall Internship Device Identifier Shelf Expiration Date Model / Serial / Lot Port Power Mri W/8fr Cath - [id number] Implanted:Qty: 1 on 09/26/2020 by Simone Michelle MD at OR [facility] Right: Chest CR BARD : PERIPHERAL VASCULAR 10/12/2021 [id number] / / [id number] Description:right IJ Lens Intraoc 19.0 - [id number] - [id number] Implanted:Qty: 1 on 02/03/2021 by Chris Sexton MD at OR [facility] Right: Eye [employer]OM[employer] 09/11/2025 [id number] / [id number] / Lens Intraoc 19.0 - [id number] - [id number] Implanted:Qty: 1 on 02/24/2021 by Chris Sexton MD at OR [facility] Left: Eye [employer]OM[employer] 10/12/2025 [id number] / [id number] / [id number] System Urolift - [id number] Implanted:Qty: 3 on 03/17/2023 by Devyn Paniagua MD at OR [facility] N/A: Urethra [employer] 11/03/2023 [id number] / / [id number] documented as of this encounter Procedures Procedure Name Priority Date/Time Associated Diagnosis Comments INR FINGERSTICK, POINT OF CARE STAT 09/01/2023 8:38 AM EST PAF (paroxysmal atrial fibrillation) (HCC) Anticoagulation management encounter senior living current use of anticoagulant therapy documented in this encounter Results * INR FINGERSTICK, POINT OF CARE (09/01/2023 8:38 AM EST) Fingerstick INR 2.1 INR 10:35 AM EST [facility]00 Blood 09/01/2023 8:38 AM EST 09/01/2023 10:35 AM EST Narrative [facility] - 09/01/2023 10:35 AM EST Therapeutic ranges for non-operative patients: Prophylaxsis/treatment of DVT: (Range:2.0-3.0) Treatment of pulmonary embolism:(Range:2.0-3.0) Prevention of systemic embolism from: -tissue heart valves -acute myocardial infarction -valvular heart disease -atrial fibrillation (Range: 2.0-3.0) Mechanical prosthetic valves: (Range: 2.5-3.5) Barbara Jiménez [facility] POINT OF CARE TEST DOCKED DEVICE UNSOLICITED RESULTS [facility] [place] [address] [place] [phone] documented in this encounter Visit Diagnoses Diagnosis PAF (paroxysmal atrial fibrillation) (HCC)- Primary Atrial fibrillation Anticoagulation management encounter Encounter for therapeutic drug monitoring senior living current use of anticoagulant therapy documented in [...] and were consensually agreed upon. Care Teams Antisqueak Worker Relationship Specialty Start Date End Date Jaime Garcia MD [address] [place] [address] [place] [address] PCP - General Family Medicine 10/15/20 documented as of this encounter"
--- OUTSIDE RECORDS SUMMARY | 2023-09-15 10:02 | External Medical Summary | Summary of Care ---
Author Name Unknown Organization [facility] Address [address] [place] [address] Phone [phone] Care Team Providers Care Economics Consultant Name Role Phone Jaime Garcia MD Primary Care Provide r Reason for Visit * Reason Comments Follow Up Encounter Details Date Type Department Care Team (Late st Contact Info) Description 09/02/2023 8:30 AM EST Office Visit Cardiology, [facility] [address] [place] [address] Beth Gibbs CRNP [address] [place] [address] Cardiac amyloidosis (HCC)*; Orthostatic hypotension; Chronic diastolic congestive heart failure (HCC); Coronary artery disease involving shungnak coronary artery of sh[place]nak heart without angina pectoris; Dyslipidemia, goal LDL below 70; Paroxysmal atrial fibrillation (HCC); Autonomic orthostatic hypotension Allergies Active Allergy Reactions Criticality Noted Date Comments Atorvastatin Muscle pain High 03/30/2019 Ezetimibe Muscle pain High 01/25/2020 documented as of this encounter (statuses as of 09/02/2023) Medications Medication Sig Dispensed Refills Start Date End Date Status NSS 0.9 % SOLN with daratumumab 400 MG/20ML SOLN 16 mg/kgIndications:e very 4 weeks Administer intravenously every 14 days. 0 Active CPAP every night at bedtime. 0 Active oxygen IN GAS Use 2 L/min(Oxygen) as directed at bedtime. 1 Each 0 1 Active OneEverest Softwareuch Ultra Blue In Vitro Strip (Glucose Blood)Indications: Type 2 diabetes mellitus with hemoglobin A1c goal of less than 7.0% ([facility] [place]) Use as directed daily. Test once daily DxE11.9 100 Strip 5 1 Active LancetsIndications :Type 2 diabetes mellitus with hemoglobin A1c goal of less than 7.0% ([facility]) Test once daily DxE11.9. 100 Each 5 1 Active Albuterol Sulfate HFA 108 (90 Base) MCG/ACT Inhalation Aerosol SolutionIndication s:Acute bronchitis, antibiotics not indicated Inhale 2 Puffs by mouth every 6 hours as needed for Cough or Shortness of Breath. 54 g 1 1 Active Additional Information Patient not taking.Reported on 09/02/2023 Acyclovir 400 MG Oral Tablet (Zovirax)Indicatio ns:Lambda light chain myeloma (HCC) Take one tablet once daily 180 Tablet 3 2 Active Ondansetron HCl 8 MG Oral Tablet [...] to Hizentra. 30 Tablet 3 3 Active EpiPen 2-Konstantin 0.3 MG/0.3ML Injection Solution Auto-injector For a severe reaction: Inject in outer thigh following instructions on package and go to the Emergency room. 2 Each 3 3 Active Dexamethasone 4 MG Oral Tablet (Decadron)Indicati ons:Multiple myeloma not having achieved remission (HCC) 5 tabs 2 times monthly 10 Tablet 5 3 Active Polyethylene Glycol 3350 17 GM Oral Packet Take 1 Packet by mouth daily as needed. 0 Active oxyCODONE-Acetamin ophen 5-325 MG Oral Tablet (Percocet) Take 1 Tablet by mouth every 6 hours as needed for Pain, Severe. 10 Tablet 0 3 Active Silodosin 8 MG Oral Capsule (Rapaflo) Take 1 Capsule by mouth in the morning. 30 Capsule 1 3 Active Levothyroxine Sodium 50 MCG Oral Tablet (Levoxyl) TAKE 1 TABLET BY MOUTH DAILY AT LEAST 30 MINUTES PRIOR TO FIRST MEAL OF THE DAY OR OTHER MEDICATIONS 90 Tablet 3 3 01/11/20 24 Active Additional Information Patient taking differently: 50 mcg Oral [id number], Reported on 04/14/2023 Warfarin Sodium 2.5 MG [...] 10 Tablet 5 3 10/27/19 24 Active Additional Information Patient not [...] Capsule 1 3 Active Cholecalciferol 50 MCG (2000 UT) Oral [...] hemoglobin A1c goal of less than 7.0% ([facility]) Take 2 Tablets by mouth in the morning. 180 Tablet 1 3 Active Insulin Glargine Solostar 100 UNIT/ML Subcutaneous Solution Pen-injector (Lantus SoloStar) Inject 10 Units under the skin every evening. 15 mL 3 3 Active Pen [place] 32G X 4 MM Use as directed. [...] breakthrough pain. 30 Tablet 0 3 Active Magnesium Chloride 64 MG Oral Tablet Delayed Release (Mag64) Take 1 Tablet by mouth in the morning and 1 Tablet before bedtime. 0 Active Folic Acid 400 MCG Oral TabletIndications: Low folate TAKE ONE TABLET BY MOUTH IN THE MORNING 90 Tablet 1 3 08/26/20 24 Active Pantoprazole Sodium 20 MG Oral Tablet Delayed Release (Protonix)Indicati ons:Gastroesophage al reflux disease without esophagitis TAKE ONE TABLET BY MOUTH EVERY DAY IN THE MORNING 90 Tablet 2 3 08/30/20 24 Active Dexcom G7 SensorIndications: Type 2 diabetes mellitus with stage 3b chronic kidney disease, without long-term current use of insulin (HCC) Use as directed to check blood sugars daily. Change every 10 days 9 Each 3 3 Active Midodrine HCl 10 MG Oral Tablet (Proamatine)Indica tions:takes 1-3 tabs depending on bp as needed Take 2 tablet shortly before or upon rising in the morning, at midday, and in the late afternoon (not later than 6 PM) 600 Tablet 3 3 Active Torsemide 10 MG Oral Tablet (Demadex)Indicatio ns:takes extra tab for swelling, wt gain Take 1 Tablet by mouth in the morning. Takes every other day. 100 Tablet 3 3 Active Potassium Chloride ER 10 MEQ Oral Tablet Extended ReleaseIndications :Chronic diastolic congestive heart failure (HCC) Take 1 Tablet by mouth in the morning. 100 Tablet 3 3 Active Fluticasone Propionate 50 MCG/ACT Nasal Suspension (Flonase)Indicatio ns:Nasal congestion Administer 2 Sprays into each nostril daily. 16 g 1 1 09/02/20 23 Discontinu ed(Patient preference /discontin uation) Imiquimod 5 % External Cream (Aldara)Indication s:Anal condyloma Apply topically to affected area at bedtime. 3 times per week and wash off after 6-10 hours. Use up to 16 weeks Given by [facility] general surgery 12 Packet 3 1 09/02/20 23 Discontinu ed(Patient preference /discontin uation) Torsemide 20 MG Oral Tablet (Demadex)Indicatio ns:takes extra tab for swelling, wt gain Take 1 Tablet by mouth in the morning. Takes every other day . 0 09/02/20 23 Discontinu ed(Refill) COVID-19 At Home Antigen Test In Vitro Kit DIRECTED 5 Kit 5 09/26/202 2 09/02/20 Discontinu ed(Patient preference /discontin uation) Famotidine 20 MG Oral Tablet Take 1 Tablet by mouth at bedtime. Take one one hour prior to weekly hizentra by mouth . 30 Tablet 3 3 09/02/20 Discontinu ed(Patient preference /discontin uation) Bisacodyl 5 MG Oral Tablet Delayed Release [...] every 3rd day. 40 Tablet 1 3 09/02/20 Discontinu ed(Patient preference /discontin uation) Midodrine HCl 10 MG Oral Tablet (Proamatine)Indica tions:takes 1-3 tabs depending on bp as needed Take 1 Tablet by mouth every morning. Take 0.5 tablet shortly before or upon rising in the morning, at midday, and in the late afternoon (not later than 6 PM) 135 Tablet 3 3 09/02/20 Discontinu ed(Refill) Potassium Chloride ER 10 MEQ Oral Tablet Extended ReleaseIndications :Chronic diastolic congestive heart failure (HCC) TAKE ONE TABLET BY MOUTH EVERY DAY 90 Tablet 3 3 09/02/20 Discontinu ed(Refill) Advanced Probiotic-14 Oral Capsule Take 2 Capsules by mouth. 0 09/02/20 Discontinu ed(Patient preference /discontin uation) Sulfamethoxazole-T rimethoprim 800-160 MG Oral Tablet (Bactrim DS) Take 1 Tablet by mouth in the morning and 1 Tablet before bedtime. 0 09/02/20 Discontinu ed(Patient preference /discontin uation) documented as of this encounter (statuses as of 09/02/2023) Active Problems Problem Noted Date Diagnosed Date [...] without remission 06/14/2014 Overview: Dr Rodriges/ [facility] ADVANCE DIRECTIVE INFORMATION 10/13/2006 Overview: No, Advance Directive brochure offered , patient declined. Degeneration of lumbosacral intervertebral disc 02/19/2005 documented as of this encounter (statuses as of 09/02/2023) Resolved Problems Problem Noted Date Diagnosed Date [...] as of this encounter (statuses as of 09/02/2023) Immunizations Name Administration Dates Next Due COVID-19, [...] Sign Reading Time Taken Comments Blood Pressure 130/86 09/02/2023 8:16 AM EST Pulse 80 09/02/2023 8:16 AM EST Temperature - - Respiratory Rate - - Oxygen Saturation - - Inhaled Oxygen Concentration - - Weight 75.3 kg (166 lb) 09/02/2023 8:16 AM EST Height - - Body Mass Index 24.51 03/17/2023 6:42 AM EDT documented in this encounter Progress Notes * Beth Gibbs CRNP - 09/02/2023 8:30 AM EST Images from the original note were not included. Cardiology Outpatient Visit 09/02/2023 Primary Rehab Tech: Follows with Tim Ruiz PA-C Follows with [facility] and [facility] as well. Past medical history: Lambda light chain myeloma diagnosed in 2013, status post autologous stem cell transplantation in 2014, systemic amyloidosis, cardiac AL amyloidosis No indication for ppm or ICD per EP 10/05/2022 Orthostatic hypotension Chronic heart failure with preserved EF, NYHA class II Nonobstructive coronary artery disease by cardiac catheterization on 01/10/2018 pAF on coumadin [id number] 3 (CHF, CAD, DM), previously on Multaq, prescribed amiodarone (due to PAF and VT) in , stopped 05/2023 due to possible toxicity with leg weakness CKD stage 3 DEBBY compliant with CPAP DM HLD HPI 53 year old man with a pmhx of multiple myeloma and cardiac AL amyloidosis (since 2013, and s/p stem cell transplant in 2014, currently on Daratumumab (was previously on carfilzomib but held because of potential issues with heart failure. He was admitted to [facility] 08/27/2023 for lightheadedness/dizziness due to severe hypotension. Of note, he was recently admitted for 11 days salmonella. He tried stopping his torsemide while at home andincreasing his midodrine dose but continued to have severe hypotension. Patient was diagnosed with severe hypotension secondary to autonomic dysfunction from AL amyloidosis. Evaluated by Dr. Abdirahman Birmingham-- Midodrine was increased to 20 mg three times daily and torsemidewas held. "We may consider adding Florinef and possibly Northera as an outpatient". In-patient echocardiogram shows a LVEF of 45-50% with severe concentric LVH and mild global hypokinesis of the left ventricle. Grade 3 diastolic dysfunction. There is a small pericardial effusion cinthia small left pleural effusion. Ultimately patient was discharged home on midodrine 20 mg three times daily and torsemide 20 mg every other day with doubling up on chemo days Since hospitalization the patient is feeling well. With the increase in midodrine his systolics have been averaging in the 130s. Will occasionally skip his evening dose because his blood pressure is reasonable. He denies chest pain or shortness of breath but does have some mild pedal edema on exam today. Notes that this has started about 2 days ago. Denies orthopnea or PND. No palpitations. No further episodes of lightheadedness or dizziness unless he makes a very quick position change. No fever, chills, cough, hematochezia, melena, or hemoptysis. Patient is compliant with all medications, and offers no side effects. Current Outpatient Medications Medication Sig Dispense Refill CPAP every night at bedtime. oxygen IN GAS Use 2 L/min(Oxygen) as directed at bedtime. 1 Each 0 Acyclovir 400 MG Oral Tablet (Zovirax) Take one tablet once daily 180 Tablet 3 Ondansetron HCl 8 MG Oral Tablet (Zofran) Take 1 Tablet (8 mg) by mouth every 8 hours as needed forNausea. 30 Tablet 3 Hizentra 4 GM/20ML Subcutaneous Solution (immune globulin human 20%) Patient is to subcutaneously infuse three four gram vials twice weekly for four weeks then 6 grams weekly. 480 mL 0 oxyCODONE-Acetaminophen 5-325 MG Oral Tablet (Percocet) Take [...] thing in the morning.) 90 Tablet 3 Finasteride 5 MG Oral Tablet (Proscar) TAKE 1 TABLET BY MOUTH IN THE MORNING 90 Tablet 3 DULoxetine HCl 20 MG Oral Capsule Delayed Release Particles (Cymbalta) Take 2 Capsules by mouth in the morning. 180 Capsule 1 Cholecalciferol 50 MCG (2000 UT) Oral Tablet Take 50 mcg by mouth in the morning. (Patient taking differently: Take 150 mcg by mouth in the morning.) 30 Tablet 5 metFORMIN HCl ER 500 MG Oral Tablet Extended Release 24 Hour (Glucophage XR) Take 2 Tablets by mouth in the morning. 180 Tablet 1 Insulin Glargine Solostar 100 UNIT/ML Subcutaneous Solution Pen-injector (Lantus SoloStar) Inject 10 Units under the skin every evening. 15 mL 3 Icosapent Ethyl 1 GM Oral Capsule (Vascepa) Take 2 Capsules by mouth 2 times a day with morning andevening meals. Swallow capsules whole, do not open or break. 360 Capsule 3 Magnesium Chloride 64 MG Oral Tablet Delayed [...] 1 Tablet by mouth in the morning. Takes every other day.100 Tablet 3 Potassium Chloride ER 10 MEQ Oral Tablet Extended Release Take 1 Tablet by mouth in the morning. 100 Tablet 3 NSS 0.9 % SOLN with daratumumab 400 [...] taking: Reported on 09/02/2023) 54 g 1 Prochlorperazine Maleate 10 MG Oral Tablet (Compazine) Take 1 Tablet by mouth every 6 hours as needed for Nausea. Take 1 tablet by mouth between 1st and 2nd Zofran doses and between the 2nd and 3rd Zofran doses. Do this when you need her not for the 1st 2 days and then as you need for nausea 28 Tablet 1 Hizentra 2 GM/10ML Subcutaneous Solution (immune globulin [...] 1 Packet by mouth daily as needed. Silodosin 8 MG Oral Capsule (Rapaflo) Take 1 Capsule by mouth in the morning. 30 Capsule 1 Warfarin Sodium 2.5 MG Oral Tablet (Coumadin) [...] mouth in the morning. 90 Tablet 1 Dapsone 25 MG Oral Tablet TAKE ONE TABLET BY MOUTH EVERY DAY 90 Tablet 1 Repatha SureClick 140 MG/ML Subcutaneous Solution Auto-injector (evolocumab) INJECT 140MG (1 INJECTION) UNDER THE SKIN EVERY 14 DAYS. REMOVE FROM REFRIGERATOR 30 MINUTES PRIOR TO INJECTION 6 mL 3 Pen [place] 32G X 4 MM Use as directed. Inject Lantus once daily. 50 Each 3 oxyCODONE HCl 5 MG Oral Tablet (Oxy IR) Take 1 Tablet by mouth every 4 hours as needed for breakthrough pain. 30 Tablet 0 Dexcom G7 Sensor Use as directed to [...] PLACEMENT-FLUORO performed by Simone Michelle MD at OR [facility] COLONOSCOPY, DIAGNOSTIC (RECTUM) 09/09/2021 normal bx / COLONOSCOPY FLEXIBLE PROXIMAL DIAGNOSTIC performed by Philip Graham MD at ENDOSCOPY [facility] CYSTOURETHROSCOPY, W/ TRANSPROSTATIC IMPLANT N/A 03/17/2023 CYSTOURETHROSCOPY, WITH INSERTION OF PERMANENT ADJUSTABLE TRANSPROSTATI IMPLANT; SINGLE IMPLANT performed by Devyn Paniagua MD at OR [facility] EGD, FLEXIBLE, DIAGNOSTIC 10/15/2019 normal bx / ESOPHAGOGASTRODUODENOSCOPY (EGD), FLEXIBLE, TRANSORAL, DIAGNOSTIC performed by Mellissa Mari MD at ENDOSCOPY [facility] EGD, FLEXIBLE, DIAGNOSTIC N/A 05/06/2023 esophageal plaques, biopsies confirm rebeca/EGD/MN EGD, W/ENDOSCOPIC US N/A 05/06/2023 multiple cystic lesion pancreatic head and body/EUS/MN INFORMATION vasectomy reversal INFORMATION status post autologous stem cell transplantation in 2015 - per cardiology note INSER TUNN ACC DEV;5 YRS/OLDER N/A 09/26/2020 INSERT TUNNELED CENTRAL VENOUS ACCESS WITH SUBQ PORT performed by Simone Michelle MD at OR [facility] MRI L SPINE W WO CONTRAST [place], was told he had a herniated disc REMOVE CATARACT, INSERT LENS PROSTH Right 02/03/2021 RIGHT EXTRACAPSULAR CATARACT REMOVAL WITH INTRAOCULAR LENS performed by Chris Sexton MD at [facility] REMOVE CATARACT, INSERT LENS PROSTH Left 02/24/2021 LEFT EXTRACAPSULAR CATARACT REMOVAL WITH INTRAOCULAR LENS performed by Chris Sexton MD at [facility] VASECTOMY 1999 Social History Tobacco Use Smoking status: Never Smokeless tobacco: Current Types: Chew Tobacco comments: one pouch or a little less daily for 17 years Vaping Use Vaping Use: Never used Substance Use Topics Alcohol use: Yes Comment: rarely Drug use: No Review of patient's allergies indicates: Allergen Reactions Atorvastatin Muscle pain Zetia [Ezetimibe] Muscle pain Review of Systems: See HPI for pertinent positives. All others negative, other than those noted in HPI. Physical Exam BP 130/86 | Pulse 80 | Wt 75.3 kg (166 lb) | BMI 24.51 kg/m | BSA 1.91 m General: No acute distress. A+Ox3. HEENT: Normocephalic. Atraumatic. Conjunctiva and sclera clear. NECK: No carotid bruits. No JVD. Carotid upstrokes are brisk. Heart: RRR. S1 and S2 noted without murmur, rubs, gallops. Lungs: Clear to auscultation. No wheezes, rhonchi, rales. Abdomen: Normal bowel sounds. Soft. Nontender. No masses or organomegaly. No abdominal bruits. Extremities: +1 BL pedal edema. No clubbing or cyanosis. Pulses: radial=2/4, posterior tibial=2/4, dorsalis pedis = 2/4. NEURO: No focal deficits. PSYCH: Normal. Lab data/imaging study review: Echo at [facility] 08/27/2023 March 11, 2023 TTE Interpretation Summary (as per Dr. Montenegro): The LV wall thickness is severely increased (concentric). There is mild diffuse left ventricular hypokinesis. The left atrium is severely enlarged. The l left ventricular diastolic function is severely abnormal (grade III). Trace mitral re gurgitation is present. A small anterior and right lateral locuated pericardial effusion is present. Cardiac tamponade is absent. Findings are consistent with the patient's known history of cardiac amyloidosis. Compared to the images obtained at the time of the prior study dated 09/12/22, no signifificant changes. Calculated LV ejection Fraction = 42% (bi-plane method of discs). TTE (09/22/22) The LV wall thickness is severely increased [...] abnormal with sparing of the apical segments. Impression/Plan: 1. Cardiac amyloidosis (HCC 2. Orthostatic hypotension -Lambda light chain myeloma diagnosed in 2013, status post autologous stem cell transplantation in 2014, systemic amyloidosis, cardiac AL amyloidosis. Follows with heme. -No indication for ppm or ICD per EP, 10/05/2022 -Recent hospital admission for orthostatic hypotension, midodrine increased. - blood pressures improved with the increase in midodrine Continue midodrine 20 mg three times daily, prescription refilled and sent to mail order. Patient tends to retain fluid in the abdomen and lungs. Would be hesitant to start Florinef for orthostatic hypotension in setting of cardiac amyloid. Possibly can consider Northera if blood pressures lower, however, cost can be a limiting factor. Will refer back to the advanced heart failure clinic with Dr. Birmingham if this medication is needed. 3. Chronic diastolic congestive heart failure (HCC) -NYHA class 2-3 -Patient appears mildly hypervolemic on exam. Did not yet take his torsemide today. Does have some mild leg swelling But no shortness of breath or abdominal distention Currently taking torsemide 20 mg every other day, will transition to torsemide 10 mg daily with potassium supplementation Repeat BMP in 1 week. 4. Coronary artery disease involving sh[place] coronary artery of sh[place] heart without angina pectoris -Nonobstructive coronary artery disease by cardiac catheterization on 01/10/2018 -Stable, no angina 5. Dyslipidemia, goal LDL below 70 LDL 33, triglycerides 233, improved. Continue Repatha and Vascepa as ordered 6. Paroxysmal atrial fibrillation (HCC) -PAF on coumadin [id number] 3 (CHF, CAD, DM)-- on warfarin, continue -Previously on Multaq, prescribed amiodarone (due to PAF and VT) 10/2022, stopped 05/2023 due to possible toxicity with leg weakness. -Intolerant to BB due to fatigue -No further known reoccurrence of PAF. -Follows with EP, keep follow up as scheduled in September. The patient agrees to the above plan and will call with additional questions or concerns. ER with all emergencies advised. Follow-up: Return in about 3 months (around 12/02/2023). | Check-out note: 3 months (tim or me)-- if possible patient would like to schedule with Tim in [place] Keep EP appt (September) I spent a total of 40 minutes on the date of service in preparation, delivery, and documentation ofthe care provided to Jerardo Ochoa Jr. excluding any time spent in the performance of separately billed services. SU Diaz, Department of Cardiology This chart was completed in part utilizing [employer] Speech Voice Recognition Software. Grammatical errors, random word insertions, prounoun errors, and incomplete sentences are an occasional consequence of this system due to software limitations, ambient noise, and hardware issues. Any formal questions or concerns about the content, text, or information contained within the body of this dictation should be directly addressed to the provider for clarification. documented in this encounter Nursing Notes * Donaldo Christopher RN - 09/02/2023 8:15 AM EST Examination Room: room 7 Name: Jerardo Ochoa Jr. Date of : (1970). Reason for Visit: for follow up Interim Hospitalization(s): admitted last weekend at [facility] Problems/Concerns: denies Chest Pain/SOB: denies [facility] Discussed: Yes [facility] is a way you can [...] Team (Late st Contact Info) Description 09/06/2023 8:50 AM EST Anticoagulation Pharmacy, [address] [place] [address] [place] [address] 09/08/2023 9:30 AM EST Office Visit [facility] [address] [facility] [place] [address] Rosalio Amaral MD [address] [facility] [place] [address] 09/09/2023 4:00 PM EST [facility] Visit [facility] [address] [facility] [place] [address] Sulma Seth RN [address] [facility] [place] [address] 09/13/2023 9:00 AM EST Office Visit Cardiology, [facility] [address] [place] [address] Beth Salter CRNP [address] [place] [id number] 11/23/2023 9:40 AM EDT Office Visit Nephrology, [facility] [address] [facility] [place] [address] Armando Cook MD [address] [facility] [place] [address] Scheduled Orders Name Type Priority Associated Diagnoses Orde r Schedule BASIC METABOLIC PANEL Lab Routine Cardiac amyloidosis (HCC) Chronic diastolic congestive heart failure (HCC) Coronary artery disease involving shungnak coronary artery of sh[place]nak heart without angina pectoris Paroxysmal atrial fibrillation (HCC) Dyslipidemia, goal LDL below 70 Orthostatic hypotension Autonomic orthostatic hypotension Expected: 09/09/2023, Expires: 09/02/2024 Health Maintenance Due Date Last Done Comments [...] Additional history exists CKD HGB USE SMARTSET 28102 08/16/202408/16, 07/25/2023, 07/25/2023, Additional history exists CKD PHOS USE SMARTSET 55728 08/16/2024 1201/2023, 07/25/2023, 07/06/2023, Additional history exists [...] this encounter Medical Devices Implanted Type Area Crust Sorter Device Identifier Shelf Expiration Date Model / Serial / Lot Port Power Mri W/8fr Cath - [id number] Implanted:Qty: 1 on 09/26/2020 by Simone Michelle MD at OR [facility] Right: Chest CR BARD : PERIPHERAL VASCULAR 10/12/2021 [id number] / / [id number] Description:right IJ Lens Intraoc 19.0 - [id number] - [id number] Implanted:Qty: 1 on 02/03/2021 by Chris Sexton MD at OR [facility] Right: Eye [employer] 09/11/2025 [id number] / [id number] / Lens Intraoc 19.0 - [id number] - [id number] Implanted:Qty: 1 on 02/24/2021 by Chris Sexton MD at OR [facility] Left: Eye [employer] 10/12/2025 [id number] / [id number] / [id number] System Urolift - [id number] Implanted:Qty: 3 on 03/17/2023 by Devyn Paniagua MD at OR [facility] N/A: Urethra [employer] 11/03/2023 [id number] / / [id number] documented as of this encounter Visit Diagnoses Diagnosis Cardiac amyloidosis (HCC)- Primary Other amyloidosis Orthostatic hypotension Chronic diastolic congestive heart failure (HCC) Chronic diastolic heart failure Coronary artery disease involving sh[place] coronary artery of sh[place] heart without angina pectoris Dyslipidemia, goal LDL below 70 Other and unspecified hyperlipidemia Paroxysmal atrial fibrillation (HCC) Atrial fibrillation Autonomic orthostatic hypotension Orthostatic hypotension documented in this encounter Advance Directives Latest [...] and were consensually agreed upon. Care Teams Economics Consultant Relationship Specialty Start Date End Date Jaime Garcia MD [address] [place] [address] [place] [address] PCP - General Family Medicine 10/15/20 documented as of this encounter
--- OUTSIDE RECORDS SUMMARY | 2023-09-15 10:02 | External Medical Summary | Summary of Care ---
Author Name Unknown Organization [facility] Address [address] [place] [address] Phone [phone] Care Team Providers Care Drier Name Role Phone Jaime Garcia MD Primary Care Provide r Reason for Visit * Reason Onset Date Comments Advice 08/24/2023 Encounter Details Date Type Department Care Team (Late st Contact Info) Description 08/24/2023 Telephone Family Medicine [address] [phone] Jaime Garcia MD [address] [place] [address] [place] [id number] Advice Allergies Active Allergy Reactions Criticality Noted Date Comments Atorvastatin Muscle pain High 03/30/2019 Ezetimibe Muscle pain High 01/25/2020 documented as of this encounter (statuses as of 09/06/2023) Medications Medication Sig Dispensed Refills Start Date End Date Status NSS 0.9 % SOLN with daratumumab 400 MG/20ML SOLN 16 mg/kgIndications:e very 4 weeks Administer intravenously every 14 days. 0 Active CPAP every night at bedtime. 0 Active oxygen IN GAS Use 2 L/min(Oxygen) as directed at bedtime. 1 Each 0 1 Active OneTouch Ultra Blue In Vitro Strip (Glucose Blood)Indications: Type 2 diabetes mellitus with hemoglobin A1c goal of less than 7.0% (HCC) Use as directed daily. Test once daily DxE11.9 100 Strip 5 1 Active LancetsIndications :Type 2 diabetes mellitus with hemoglobin A1c goal of less than 7.0% ([facility]) Test once daily DxE11.9. 100 Each 5 1 Active Albuterol Sulfate HFA 108 (90 Base) MCG/ACT Inhalation Aerosol SolutionIndication s:Acute bronchitis, antibiotics not indicated Inhale 2 Puffs by mouth every 6 hours as needed for Cough or Shortness of Breath. 54 g 1 1 Active Additional Information Patient not taking.Reported on 09/02/2023 Acyclovir 400 MG Oral Tablet (Zovirax)Indicatio ns:Lambda light chain myeloma ([facility]) Take one tablet once daily 180 Tablet [...] Information Patient taking differently: 50 mcg Oral [id number], Reported on 04/14/2023 Warfarin Sodium 2.5 MG Oral Tablet (Coumadin)Indicati ons:Atrial fibrillation, unspecified type (HCC),Anticoagulat ion management encounter,manager long term care current use of anticoagulant therapy,Paroxysmal atrial [...] A1c goal of less than 7.0% ([facility]) Take 2 Tablets by mouth in the morning. 180 Tablet 1 3 Active Insulin Glargine Solostar 100 UNIT/ML Subcutaneous Solution Pen-injector (Lantus SoloStar) Inject 10 Units under the skin every evening. 15 mL 3 3 Active Pen [place] 32G X 4 MM Use as directed. [...] and 1 Tablet before bedtime. 0 Active Fluticasone Propionate 50 MCG/ACT Nasal Suspension (Flonase)Indicatio ns:Nasal congestion Administer 2 Sprays into each nostril daily. 16 g 1 1 12/22/20 23 Discontinu ed(Patient preference /discontin uation) Imiquimod 5 % External Cream (Aldara)Indication s:Anal condyloma Apply topically to affected area at bedtime. 3 times per week and wash off after 6-10 hours. Use up to 16 weeks Given by [facility] general surgery 12 Packet 3 1 09/02/20 Discontinu ed(Patient preference /discontin uation) Torsemide 20 MG Oral Tablet (Demadex)Indicatio ns:takes extra tab for swelling, wt gain Take 1 Tablet by mouth in the morning. Takes every other day . 0 09/02/20 Discontinu ed(Refill) COVID-19 At Home Antigen Test In Vitro Kit DIRECTED 5 Kit 5 2 09/02/20 Discontinu ed(Patient preference /discontin uation) [...] 135 Tablet 3 3 09/02/20 Discontinu ed(Refill) Folic Acid 400 MCG Oral TabletIndications: Low folate TAKE ONE TABLET BY MOUTH IN THE MORNING 90 Tablet 1 3 08/27/20 Discontinu ed(Refill) Pantoprazole Sodium 20 MG Oral Tablet Delayed Release (Protonix)Indicati ons:Gastroesophage al reflux disease without esophagitis TAKE ONE TABLET BY MOUTH EVERY DAY IN THE MORNING 90 Tablet 2 3 08/31/20 Discontinu ed(Refill) Potassium Chloride ER 10 MEQ [...] 0 09/02/20 Discontinu ed(Patient preference /discontin uation) Dexcom G7 SensorIndications: Type 2 diabetes mellitus with stage 3b chronic kidney disease, without long-term current use of insulin (HCC) Use as directed to check blood sugars daily. Change every 10 days. DxE11.9. 3 Each 3 3 09/01/20 Discontinu ed(Refill) documented as of this encounter (statuses as of 09/06/2023) Active Problems Problem Noted Date Diagnosed Date [...] than 70 09/13 Coronary artery disease, non-occlusive 2 Current chronic use of systemic steroids 021 [...] Overview: Dr Rodriges/ [facility] ADVANCE DIRECTIVE INFORMATION 10/13/2006 Overview: No, Advance Directive brochure offered , patient declined. Degeneration of lumbosacral intervertebral disc 02/19/2005 documented as of this encounter (statuses as of 09/06/2023) Resolved Problems Problem Noted Date Diagnosed Date [...] as of this encounter (statuses as of 09/06/2023) Immunizations Name Administration Dates Next Due COVID-19, [...] encounter Miscellaneous Notes * Telephone Encounter - Karolina Burgos OSA - 08/24/2023 11:50 AM EST Please call Jerardo, he has fallen twice and bp is Low. [phone] documented in this encounter Plan of Treatment Upcoming Encounters Date Type Department Care Team (Late st Contact Info) Description 09/07/2023 9:30 AM EST Telemedicine Pharmacy, [address] [place] [phone] [place] [address] 09/08/2023 9:30 AM EST [facility] Tyree UGARTE [address] [facility] [place] [address] Rosalio Amaral MD [address] [facility] [place] [address] 09/09/2023 4:00 PM EST [facility], [facility] 132 [facility] [place] [address] Sulma Seth, BOBBY 132 [facility] [place] [address] 09/13/2023 9:00 AM EST Office Visit Cardiology, [facility] 132 [facility] [place] [address] Beth Salter CRNP 400 [facility] [place] [phone] 09/14/2023 8:50 AM EST Anticoagulation Pharmacy, [address] [place] [address] [place] [address] 11/23/2023 9:40 AM EDT Office Visit Nephrology, [facility] [address] [facility] [place] [address] Armando Cook MD 200 [facility] [place] [address] Health Maintenance Due Date Last Done Comments [...] Additional history exists CKD HGB USE SMARTSET 23799 08/16/202408/16, 07/25/2023, 07/25/2023, Additional history exists CKD PHOS USE SMARTSET 38655 08/16/2024 1201/2023, 07/25/2023, 07/06/2023, Additional history exists [...] this encounter Medical Devices Implanted Type Area Wordpress Developer Device Identifier Shelf Expiration Date Model / Serial / Lot Port Power Mri W/8fr Cath - [id number] Implanted:Qty: 1 on 09/26/2020 by Simone Michelle MD at OR [facility] Right: Chest CR BARD : PERIPHERAL VASCULAR 10/12/2021 [id number] / / [id number] Description:right IJ Lens Intraoc 19.0 - [id number] - [id number] Implanted:Qty: 1 on 02/03/2021 by Chris Sexton MD at OR [facility] Right: Eye [employer]OM[employer] 09/11/2025 [id number] / [id number] / Lens Intraoc 19.0 - [id number] - [id number] Implanted:Qty: 1 on 02/24/2021 by Chris Sexton MD at OR [facility] Left: Eye BAUSCH & LOMB 10/12/2025 [id number] / [id number] / [id number] System Urolift - [id number] Implanted:Qty: 3 on 03/17/2023 by Devyn Paniagua MD at OR [facility] N/A: Urethra [employer] 11/03/2023 [id number] / / [id number] documented as of this encounter Advance Directives Latest Code Status on File Code Status Date Activated Date Inactivated Comments Full Code 03/17/2023 8:20 AM 03/17/2023 1:36 PM This or dilhsad reflects the patients wishes and were consensually [...] and were consensually agreed upon. Care Teams Drier Relationship Specialty Start Date End Date Jaime Garcia MD [address] [place] [address] [place] [phone] PCP - General Family Medicine 10/15/20 documented as of this encounter
--- OUTSIDE RECORDS SUMMARY | 2023-09-15 10:02 | External Medical Summary | Summary of Care ---
Author Name Unknown Organization [facility] Address [address] [place] [address] Phone [phone] Care Team Providers Care Health Services Rn Name Role Phone Jaime Garcia MD Primary Care Provide r Reason for Visit * Reason Comments Dosage Adjustment In Person (Anticoag Cl inic) Encounter Details Date Type Department Care Team (Latest Contact Info) Description 09/06/2023 8:50 AM EST Anticoagulation Pharmacy, [address] [place] [phone] [place] [address] PAF (paroxysmal atrial fibrillation) ([facility])*; Anticoagulation management encounter; alf current use of anticoagulant therapy Allergies Active [...] Tablet (Zovirax)Indicatio ns:Lambda light chain myeloma ([facility]) Take one tablet once [...] Information Patient taking differently: 50 mcg Oral [id number], Reported on 04/14/2023 Warfarin Sodium 2.5 MG [...] evening. 15 mL 3 07/19/2023 Active Pen Mereta 32G X 4 MM Use as directed. [...] without remission 06/14/2014 Overview: Dr Rodriges/ [facility] ADVANCE DIRECTIVE INFORMATION 10/13/2006 Overview: [...] this encounter Progress Notes * Barbara Jiménez, [facility] - 09/06/2023 8:59 AM EST Medication Therapy Disease Management - Anticoagulation Patient: Jerardo Ochoa Jr. | : 1970 Subjective Patient-Reported Symptoms: Patient Findings Negatives: Signs/symptoms of thrombosis, Signs/symptoms of bleeding, Change in health, Change in alcohol use, Change in activity, Upcoming invasive procedure, Missed doses, Extra doses, Change in medications, Change in diet/appetite, Bruising Objective Current Warfarin Dose As of 09/06/2023 Warfarin maintenance plan: 1.25 mg (2.5 mg x 0.5) every day INR Result As of 09/06/2023 INR goal: 2.0-3.0 INR used for dosin.0 (09/06/2023) Assessment & Plan Warfarin Plan As of 09/06/2023 Full warfarin instructions: 1.25 mg every day No change documented: Barbara Jiménez RPh Next INR check: 09/14/2023 Repeat PT/INR in 1 week(s) Weekly dose: not changed Additional Dosing Information: Description AMIO start 10/29/22 - 11/22/22 BID then QD after AMIO STOPPED 05/31 Barbara Jiménez RPh Clinical Pharmacist 09/06/2023, 8:59 AM documented in this encounter Plan of Treatment Upcoming Encounters Date Type Department Care Team (Late st Contact Info) Description 09/07/2023 9:30 AM EST Telemedicine Pharmacy, [address] [place] [phone] [place] [address] 09/08/2023 9:30 AM EST [facility] [address] [facility] [place] [address] Rosalio Amaral MD [address] [facility] [place] [address] 09/09/2023 4:00 PM EST [facility] 132 [facility] [place] [address] Sulma Seth, BOBBY 132 [facility] [place] [address] 09/13/2023 9:00 AM EST Office Visit Cardiology, [facility] [address] [place] [address] Beth Salter CRNP [address] [place] [address] [place] [phone] 09/14/2023 8:50 AM EST Anticoagulation Pharmacy, [address] [place] [address] [place] [address] 11/23/2023 9:40 AM EDT Office Visit Nephrology, [facility] 200 [facility] [place] [address] Armando Cook MD [address] [place] [address] Health Maintenance Due Date Last Done Comments [...] Additional history exists CKD HGB USE SMARTSET 41815 08/16/202408/16, 07/25/2023, 07/25/2023, Additional history exists CKD PHOS USE SMARTSET 51138 08/16/2024 1201/2023, 07/25/2023, 07/06/2023, Additional history exists [...] this encounter Medical Devices Implanted Type Area Metaphysician Device Identifier Shelf Expiration Date Model / Serial / Lot Port Power Mri W/8fr Cath - [id number] Implanted:Qty: 1 on 09/26/2020 by Simone Michelle MD at OR [facility] Right: Chest CR BARD : PERIPHERAL VASCULAR 10/12/2021 [id number] / / [id number] Description:right IJ Lens Intraoc 19.0 - [id number] - [id number] Implanted:Qty: 1 on 02/03/2021 by Chris Sexton MD at OR [facility] Right: Eye [employer]CH [employer] LOMB 09/11/2025 [id number] / [id number] / Lens Intraoc 19.0 - [id number] - [id number] Implanted:Qty: 1 on 02/24/2021 by Chris Sexton MD at OR [facility] Left: Eye BAUSCH & LOMB 10/12/2025 [id number] / [id number] / [id number] System Urolift - [id number] Implanted:Qty: 3 on 03/17/2023 by Devyn Paniagua MD at OR [facility] N/A: Urethra [employer] 11/03/2023 [id number] / / [id number] documented as of this encounter Procedures Procedure Name Priority Date/Time Associated Diagnosis Comments INR FINGERSTICK, POINT OF CARE STAT 09/06/2023 9:02 AM EST PAF (paroxysmal atrial fibrillation) (HCC) Anticoagulation management encounter technician terminal and repeater current use of anticoagulant therapy documented in this encounter Results * INR FINGERSTICK, POINT OF CARE (09/06/2023 9:02 AM EST) Fingerstick INR 2.0 INR 9:04 AM EST [facility] [place] 55-00 Blood 09/06/2023 9:02 AM EST 09/06/2023 9:04 AM EST Narrative [facility] [place] [facility]-00 - 09/06/2023 9:04 AM EST Therapeutic ranges for non-operative patients: Prophylaxsis/treatment of DVT: (Range:2.0-3.0) Treatment of pulmonary embolism:(Range:2.0-3.0) Prevention of systemic embolism from: -tissue heart valves -acute myocardial infarction -valvular heart disease -atrial fibrillation (Range: 2.0-3.0) Mechanical prosthetic valves: (Range: 2.5-3.5) Barbara Jiménez [facility] LAB POINT OF CARE TEST DOCKED DEVICE UNSOLICITED RESULTS [facility] [place] [address] [place] [address] documented in this encounter Visit Diagnoses Diagnosis PAF (paroxysmal atrial fibrillation) (HCC)- Primary Atrial fibrillation Anticoagulation management encounter Encounter for therapeutic drug monitoring technician terminal and repeater current use of anticoagulant therapy documented in [...] and were consensually agreed upon. Care Teams Health Services Rn Relationship Specialty Start Date End Date Jaime Garcia MD [address] [place] [address] [place] [address] PCP - General Family Medicine 10/15/20 documented as of this encounter"
--- OUTSIDE RECORDS SUMMARY | 2023-09-15 10:03 | External Medical Summary | Summary of Care ---
Author Name Unknown Organization [facility] Address [address] [place] [address] Phone [phone] Care Team Providers Care Outside Sales Advertising Executive Name Role Phone Jaime Garcia MD Primary Care Provide r Reason for Visit * Reason Comments Dosage Adjustment In Person (Anticoag Cl inic) Encounter Details Date Type Department Care Team (Latest Contact Info) Description 08/30/2023 8:20 AM EST Anticoagulation Pharmacy, [address] [place] [address] [place] [address] PAF (paroxysmal atrial fibrillation) ([facility])*; Anticoagulation management encounter; long-term current use of anticoagulant therapy Allergies Active Allergy Reactions Criticality Noted Date Comments Atorvastatin Muscle pain High 03/30/2019 Ezetimibe Muscle pain High 01/25/2020 documented as of this encounter (statuses as of 08/30/2023) Medications Medication Sig Dispensed Refills Start Date [...] Use up to [address] [facility] general surgery 12 Packet 3 01/19/2021 Active OneTouch Ultra Blue In Vitro Strip (Glucose Blood)Indications: Type 2 diabetes mellitus with hemoglobin A1c goal of less than 7.0% ([facility]) Use as directed daily. Test once daily DxE11.9 100 Strip 5 03/02/2021 Active LancetsIndications :Type 2 diabetes mellitus with hemoglobin A1c goal of less than 7.0% ([facility]) Test once daily DxE11.9. 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 15 mL 3 07/19/2023 Active Pen [place] 32G X 4 MM Use as directed. [...] days. DxE11.9. 3 Each 3 08/22/2023 Active Folic Acid 400 MCG Oral TabletIndications: Low folate TAKE ONE TABLET BY MOUTH IN THE MORNING 90 Tablet 1 08/27/2023 08/26/20 24 Active documented as of this encounter (statuses as of 08/30/2023) Active Problems Problem Noted Date Diagnosed Date [...] as of this encounter (statuses as of 08/30/2023) Resolved Problems Problem Noted Date Diagnosed Date [...] as of this encounter (statuses as of 08/30/2023) Immunizations Name Administration Dates Next Due COVID-19, [...] Progress Notes * Barbara Jiménez RPh - 08/30/2023 8:22 AM EST Images from the original note were not included. Medication Therapy Disease Management - Anticoagulation Patient: Jerardo Ochoa Jr. | : 1970 Subjective Patient-Reported Symptoms: Patient Findings Positives: Emergency department visit, Hospital admission Negatives: Signs/symptoms of thrombosis, Signs/symptoms of bleeding, Change in health, Change in alcohol use, Change in activity, Upcoming invasive procedure, Missed doses, Extra doses, Change in medications, Change in diet/appetite, Bruising Objective Current Warfarin Dose As of 08/30/2023 Warfarin maintenance plan: 1.25 mg (2.5 mg x 0.5) every day INR Result As of 08/30/2023 INR goal: 2.0-3.0 INR used for dosin.2 (08/28/2023) Assessment & Plan Warfarin Plan As of 08/30/2023 Full warfarin instructions: 08/30: 2.5 mg; Otherwise 1.25 mg every day Next INR check: 09/01/2023 Repeat PT/INR in 2 day(s) Weekly dose: not changed Additional Dosing Information: Patient was at the ER and then admitted to [facility] over the weekend d/t hypotension. INR upon admission was 1.4. Discharged with Lovenox 70mg BID, INR at the time was 1.2. Patient reports one Lovenox injection remaining. Will plan to take last injection and then bolus + closely monitor as opposed to continuing injections. Patient notes to still struggling with N/V/D since discharge. No longer utilizing home health. Description AMIO start 10/29/22 - 11/22/22 BID then QD after AMIO STOPPED 05/31 [address] Jimé[address] [facility] Clinical Pharmacist 08/30/2023, 8:22 AM documented in this encounter Plan of Treatment Upcoming Encounters Date Type Department Care Team (Late st Contact Info) Description 09/01/2023 8:40 AM EST Anticoagulation Pharmacy, [address] [place] [address] [place] [address] 09/09/2023 4:00 PM EST [facility], [facility] 132 [facility] [place] [address] Sulma Seth RN 132 [facility] [place] [address] 09/13/2023 9:00 AM EST Office Visit Cardiology, [facility] 132 [facility] [place] [address] Beth Salter CRNP 400 [facility] [place] [phone] 11/23/2023 9:40 AM EDT Office Visit Nephrology, [facility] 200 [facility] [place] [address] Armando Cook MD 200 [facility] [place] [address] Health Maintenance Due Date Last Done Comments [...] Additional history exists CKD HGB USE SMARTSET 30803 08/16/202408/16, 07/25/2023, 07/25/2023, Additional history exists CKD PHOS USE SMARTSET 43501 08/16/2024 1201/2023, 07/25/2023, 07/06/2023, Additional history exists [...] this encounter Medical Devices Implanted Type Area Fee Clerk Device Identifier Shelf Expiration Date Model / Serial / Lot Port Power Mri W/8fr Cath - [id number] Implanted:Qty: 1 on 09/26/2020 by Simone Michelle MD at OR [facility] Right: Chest CR BARD : PERIPHERAL VASCULAR 10/12/2021 [id number] / / [id number] Description:right IJ Lens Intraoc 19.0 - [id number] - [id number] Implanted:Qty: 1 on 02/03/2021 by Chris Sexton MD at OR [facility] Right: Eye BAUSCH [employer] LOMB 09/11/2025 [id number] / [id number] / Lens Intraoc 19.0 - [id number] - [id number] Implanted:Qty: 1 on 02/24/2021 by Chris Sexton MD at OR [facility] Left: Eye BAUSCH & LOMB 10/12/2025 [id number] / [id number] / [id number] System Urolift - [id number] Implanted:Qty: 3 on 03/17/2023 by Devyn Paniagua MD at OR [facility] N/A: Urethra [employer] 11/03/2023 [id number] / / [id number] documented as of this encounter Procedures Procedure Name Priority Date/Time Associated Diagnosis Comments INR FINGERSTICK, POINT OF CARE STAT 08/30/2023 8:30 AM EST PAF (paroxysmal atrial fibrillation) (HCC) Anticoagulation management encounter long-term current use of anticoagulant therapy OUTSIDE LAB-PT/INR Routine 08/28/2023 OUTSIDE LAB-PT/INR Routine 08/27/2023 OUTSIDE LAB-PT/INR Routine 08/26/2023 documented in this encounter Results * INR FINGERSTICK, POINT OF CARE (08/30/2023 8:30 AM EST) Fingerstick INR 1.4 INR 8:32 AM EST [facility] [place] 55-00 Blood 08/30/2023 8:30 AM EST 08/30/2023 8:32 AM EST Narrative [facility] [place] - 08/30/2023 8:32 AM EST Therapeutic ranges for non-operative patients: Prophylaxsis/treatment of DVT: (Range:2.0-3.0) Treatment of pulmonary embolism:(Range:2.0-3.0) Prevention of systemic embolism from: -tissue heart valves -acute myocardial infarction -valvular heart disease -atrial fibrillation (Range: 2.0-3.0) Mechanical prosthetic valves: (Range: 2.5-3.5) Barbara Jiménez [facility] LAB POINT OF CARE TEST DOCKED DEVICE UNSOLICITED RESULTS [facility] [place] [address] [place] [address] * OUTSIDE LAB-PT/INR (08/28/2023) INR-OUTSIDE LAB 1.2 08/28/2023 History Per Patient LABORATORY * OUTSIDE LAB-PT/INR (08/27/2023) Pathologist [facility] INR-OUTSIDE LAB 1.2 08/27/2023 Narrative Resulting Agency Comment [facility] History Per Patient LABORATORY * OUTSIDE LAB-PT/INR (08/26/2023) Pathologist [facility] INR-OUTSIDE LAB 1.4 08/26/2023 Narrative Resulting Agency Comment [facility] History Per Patient LABORATORY documented in this encounter Visit Diagnoses Diagnosis PAF (paroxysmal atrial fibrillation) (HCC)- Primary Atrial fibrillation Anticoagulation management encounter Encounter for therapeutic drug monitoring predatory animal exterminator current use of anticoagulant therapy documented in [...] and were consensually agreed upon. Care Teams Outside Sales Advertising Executive Relationship Specialty Start Date End Date Jaime Garcia MD [address] [place] [address] [place] [phone] PCP - General Family Medicine 10/15/20 documented as of this encounter"
--- OUTSIDE RECORDS SUMMARY | 2023-09-15 10:03 | External Medical Summary | Summary of Care ---
Author Name Unknown Organization [facility] Address [address] [place] [address] Phone [phone] Care Team Providers Care Caddie Name Role Phone Jaime Day MD Primary Care Provide r Reason for Visit * Reason Comments Medication Refill Encounter Details Date Type Department Care Team (Late st Contact Info) Description 08/31/2023 Refill Family Medicine [address] [place] [phone] Jaime Day MD [address] [place] [address] [place] [address] Gastroesophageal reflux disease without esophagitis Allergies Active Allergy Reactions Criticality Noted Date Comments Atorvastatin Muscle pain High 03/30/2019 Ezetimibe Muscle pain High 01/25/2020 documented as of this encounter (statuses as of 08/31/2023) Medications Medication Sig Dispensed Refills Start Date [...] up to 16 weeks Given by [facility] surgery 12 Packet 3 1 Active OneTouch Ultra Blue In Vitro Strip (Glucose Blood)Indications: Type 2 diabetes mellitus with hemoglobin A1c goal of less than 7.0% ([facility]) Use as directed daily. Test once daily DxE11.9 100 Strip 5 1 Active LancetsIndications :Type 2 diabetes mellitus with hemoglobin A1c goal of less than 7.0% ([facility]) Test once daily DxE11.9. 100 Each 5 [...] Information Patient taking differently: 50 mcg Oral [id number], Reported on 04/14/2023 Potassium Chloride ER 10 MEQ Oral Tablet Extended ReleaseIndications :Chronic diastolic congestive heart failure (HCC) TAKE ONE TABLET BY MOUTH EVERY DAY 90 Tablet 3 3 12/13/19 24 Active Warfarin Sodium 2.5 MG Oral Tablet (Coumadin)Indicati ons:Atrial fibrillation, unspecified type (HCC),Anticoagulat ion management encounter,halfway current use of anticoagulant therapy,Paroxysmal atrial fibrillation [...] than 7.0% ([facility]) Take 2 Tablets by mouth in the morning. 180 Tablet 1 3 Active Insulin Glargine Solostar 100 UNIT/ML Subcutaneous Solution Pen-injector (Lantus SoloStar) Inject 10 Units under the skin every evening. 15 mL 3 3 Active Pen [place] 32G X 4 MM Use as directed. [...] Tablet (Oxy IR)Indications:Mul tiple myeloma in relapse ([facility]) Take 1 Tablet by mouth every 4 [...] of insulin ([facility]) Use as directed to check blood sugars daily. Change every 10 days. DxE11.9. 3 Each 3 3 Active Folic Acid 400 MCG Oral TabletIndications: Low folate TAKE ONE TABLET BY MOUTH IN THE MORNING 90 Tablet 1 3 08/26/20 24 Active Pantoprazole Sodium 20 MG Oral Tablet Delayed Release (Protonix)Indicati ons:Gastroesophage al reflux disease without esophagitis TAKE ONE TABLET BY MOUTH EVERY DAY IN THE MORNING 90 Tablet 2 3 08/30/20 24 Active Pantoprazole Sodium 20 MG Oral Tablet Delayed Release (Protonix)Indicati ons:Gastroesophage al reflux disease without esophagitis TAKE ONE TABLET BY MOUTH EVERY DAY IN THE MORNING 90 Tablet 2 3 08/31/20 23 Discontinu ed(Refill) documented as of this encounter (statuses as of 08/31/2023) Active Problems Problem Noted Date Diagnosed Date [...] myeloma without remission 06/14/2014 Overview: Dr Rodriges/ [facility] ADVANCE DIRECTIVE INFORMATION 10/13/2006 Overview: No, Advance Directive brochure offered , patient declined. Degeneration of lumbosacral intervertebral disc 02/19/2005 documented as of this encounter (statuses as of 08/31/2023) Resolved Problems Problem Noted Date Diagnosed Date [...] as of this encounter (statuses as of 08/31/2023) Immunizations Name Administration Dates Next Due COVID-19, [...] encounter Miscellaneous Notes * Telephone Encounter - Praveen Tay RPh - 08/31/2023 3:48 PM ESTSigned Prescriptions: Disp Refills Pantoprazole Sodium 20 MG Oral Tablet Kathe*90 Tab*2 Sig: TAKE ONE TABLET BY MOUTH EVERY DAY IN THE MORNINGAuthorizing Provider: Joseluis DAY User: PRAVEEN TAY documented in this encounter Plan of Treatment Upcoming Encounters Date Type Department Care Team (Late st Contact Info) Description 09/01/2023 8:40 AM EST Anticoagulation Pharmacy, [address] [place] [phone] [place] [address] 09/02/2023 8:30 AM EST Office Visit Cardiology, [facility] [address] [place] [address] Beth Gibbs CRNP [address] [place] [address] 09/08/2023 9:30 AM EST Office [facility]ree UG[facility] [address] [place] [address] Rosalio Amaral MD [address] [place] [address] 09/09/2023 4:00 PM EST [facility], [facility] 132 [facility] [place] [address] Sulma Seth, BOBBY 132 [facility] [place] [address] 09/13/2023 9:00 AM EST Office Visit Cardiology, [facility] 132 [facility] [place] [address] Beth Salter CRNP [address] [place] [phone] 11/23/2023 9:40 AM EDT Office Visit Nephrology, [facility] 200 [facility] [place] [address] Armando Cook MD 200 [facility] [place] [address] Health Maintenance Due Date Last Done Comments [...] Additional history exists CKD HGB USE SMARTSET 24199 08/16/202408/16, 07/25/2023, 07/25/2023, Additional history exists CKD PHOS USE SMARTSET 22025 08/16/2024 1201/2023, 07/25/2023, 07/06/2023, Additional history exists [...] this encounter Medical Devices Implanted Type Area Senior Account Representative Device Identifier Shelf Expiration Date Model / Serial / Lot Port Power Mri W/8fr Cath - [id number] Implanted:Qty: 1 on 09/26/2020 by Simone Michelle MD at OR [facility] Right: Chest CR BARD : PERIPHERAL VASCULAR 10/12/2021 [id number] / / [id number] Description:right IJ Lens Intraoc 19.0 - [id number] - [id number] Implanted:Qty: 1 on 02/03/2021 by Chris Sexton MD at OR [facility] Right: Eye [employer]OM[employer] 09/11/2025 [id number] / [id number] / Lens Intraoc 19.0 - [id number] - [id number] Implanted:Qty: 1 on 02/24/2021 by Chris Sexton MD at OR [facility] Left: Eye BAUSCH [employer] LOMB 10/12/2025 [id number] / [id number] / [id number] System Urolift - [id number] Implanted:Qty: 3 on 03/17/2023 by Devyn Paniagua MD at OR [facility] N/A: Urethra [employer] 11/03/2023 [id number] / / [id number] documented as of this encounter Visit Diagnoses Diagnosis Gastroesophageal reflux disease without esophagitis Esophageal reflux documented in this encounter Advance Directives Latest [...] and were consensually agreed upon. Care Teams Caddie Relationship Specialty Start Date End Date Jaime Day MD [address] [place] [address] [place] [phone] PCP - General Family Medicine 10/15/20 documented as of this encounter
--- OUTSIDE RECORDS SUMMARY | 2023-09-15 10:03 | External Medical Summary | Summary of Care ---
Author Name Unknown Organization [facility] Address [address] [place] [address] Phone [phone] Care Team Providers Care Bench Press Operator Name Role Phone Jaime Garcia MD Primary Care Provide r Encounter Details Date Type Department Care Team (Late st Contact Info) Description 09/01/2023 Telephone Pharmacy, [address] [place] [address] [facility] [place] [address] Allergies Active Allergy Reactions Criticality Noted Date [...] Use up to 16 weeks Given by [facility] general surgery 12 Packet 3 1 Active OneTouch Ultra Blue In Vitro Strip (Glucose Blood)Indications: Type 2 diabetes mellitus with hemoglobin A1c goal of less than 7.0% ([facility]) Use as directed daily. Test once daily DxE11.9 100 Strip 5 1 Active LancetsIndications :Type 2 diabetes mellitus with hemoglobin A1c goal of less than 7.0% ([facility]) Test once daily DxE11.9. 100 Each [...] Information Patient taking differently: 50 mcg Oral [id number], Reported on 04/14/2023 Potassium Chloride ER 10 MEQ Oral Tablet Extended ReleaseIndications :Chronic diastolic congestive heart failure (HCC) TAKE ONE TABLET BY MOUTH EVERY DAY 90 Tablet 3 3 12/13/19 24 Active Warfarin Sodium 2.5 MG Oral Tablet (Coumadin)Indicati ons:Atrial fibrillation, unspecified type (HCC),Anticoagulat ion management encounter,[facility] current use of anticoagulant therapy,Paroxysmal atrial fibrillation [...] goal of less than 7.0% ([facility]) Take 2 Tablets by mouth in the morning. 180 Tablet 1 3 Active Insulin Glargine Solostar 100 UNIT/ML Subcutaneous Solution Pen-injector (Lantus SoloStar) Inject 10 Units under the skin every evening. 15 mL 3 3 Active Pen [place] 32G X 4 MM Use as directed. [...] Tablet (Oxy IR)Indications:Mul tiple myeloma in relapse ([facility]) Take 1 Tablet by mouth every 4 [...] long-term current use of insulin ([facility]) Use as directed to check blood sugars daily. Change every 10 days. DxE11.9. 9 Each 3 3 Active Dexcom G7 SensorIndications: Type 2 diabetes [...] myeloma without remission 06/14/2014 Overview: Dr Rodriges/ [facility] ADVANCE DIRECTIVE INFORMATION 10/13/2006 Overview: No, [...] Notes * Telephone Encounter - Barbara Jiménez RPh - 09/01/2023 8:39 AM EST Patient requesting Dexcom sensors [place] [facility]. Will plan to schedule DM f/u on INRis stable. Barbara Jiménez RPh, PharmD Clinical Pharmacist - Cyanide Case Hardener [facility] 09/01/2023, 8:42 AM [phone] documented in this encounter Plan of Treatment Upcoming Encounters Date Type Department Care Team (Late st Contact Info) Description 09/02/2023 8:30 AM EST Office Visit Cardiology, [facility] 132 [facility] [place] [address] Beth Gibbs CRNP 132 [facility] [place] [address] 09/06/2023 8:50 AM EST Anticoagulation Pharmacy, [address] [place] [phone] [place] [address] 09/08/2023 9:30 AM EST Office [facility] Tyree UGARTE [address] [facility] [place] [address] Rosalio Amaral MD [address] [facility] [place] [address] 09/09/2023 4:00 PM EST Home Visit [facility], [facility] 132 [facility] [place] [address] Sulma Seth, RN 132 [facility] [place] [place] [address] 09/13/2023 9:00 AM EST Office Visit Cardiology, [facility] 132 [facility] [place] [address] Beth Salter CRNP 400 [facility] [place] [phone] 11/23/2023 9:40 AM EDT Office Visit Nephrology, [facility] 200 [facility] [place] [address] Armando Cook MD 200 [facility] [place] [address] Health Maintenance Due Date Last Done Comments [...] Additional history exists CKD HGB USE SMARTSET 42939 08/16/202408/16, 07/25/2023, 07/25/2023, Additional history exists CKD PHOS USE SMARTSET 54053 08/16/202401/2023, 07/25/2023, 07/06/2023, Additional history exists DTaP,Tdap,and [...] this encounter Medical Devices Implanted Type Area Feller Buncher Operator Device Identifier Shelf Expiration Date Model / Serial / Lot Port Power Mri W/8fr Cath - [id number] Implanted:Qty: 1 on 09/26/2020 by Simone iMchelle MD at OR [facility] Right: Chest CR BARD : PERIPHERAL VASCULAR 10/12/2021 [id number] / / [id number] Description:right IJ Lens Intraoc 19.0 - [id number] - [id number] Implanted:Qty: 1 on 02/03/2021 by Chris Sexton MD at OR [facility] Right: Eye [employer]OM[employer] 09/11/2025 [id number] / [id number] / Lens Intraoc 19.0 - [id number] - [id number] Implanted:Qty: 1 on 02/24/2021 by Chris Sexton MD at OR [facility] Left: Eye BAUSCH [employer] LOMB 10/12/2025 [id number] / [id number] / [id number] System Urolift - [id number] Implanted:Qty: 3 on 03/17/2023 by Devyn Paniagua MD at OR [facility] N/A: Urethra [employer] 11/03/2023 [id number] / / [id number] documented as of this encounter Visit Diagnoses [...] and were consensually agreed upon. Care Teams Bench Press Operator Relationship Specialty Start Date End Date Jaime Garcia MD [address] [place] [address] [place] [phone] PCP - General Family Medicine 10/15/20 documented as of this encounter
--- OUTSIDE RECORDS SUMMARY | 2023-09-15 10:03 | External Medical Summary ---
Author Name Unknown Address Unknown Organization : Laboratory Report Ordering Provider Test Date Status TASNEEM SLAUGHTER 09/01/2023 08:38:17 Final Therapeutic ranges for non-o perative patients:
Prophylaxsis/treatment of DVT: (Range:2.0-3.0)
Treatment of pulmonary embolism:(Range:2.0-3.0)
Prevention of systemic embolism from:
-tissue heart valves
-acute myocardial infarction
-valvular heart disease
-atrial fibrillation
(Range: 2.0-3.0)
Mechanical prosthetic valves: (Range: 2.5-3.5) Observation Date Value Abnormality Reference (Units ) Status INR in Capillary blood by Coagulation assay 09/01/2023 08:38:17 2.1 (INR) Final Performing Location
--- OUTSIDE RECORDS SUMMARY | 2023-09-15 10:03 | External Medical Summary ---
Author Name Unknown Address Unknown Organization : Laboratory Report Ordering Provider Test Date Status TASNEEM SLAUGHTER 08/30/2023 08:30:24 Final Therapeutic ranges for non-o perative patients:
Prophylaxsis/treatment of DVT: (Range:2.0-3.0)
Treatment of pulmonary embolism:(Range:2.0-3.0)
Prevention of systemic embolism from:
-tissue heart valves
-acute myocardial infarction
-valvular heart disease
-atrial fibrillation
(Range: 2.0-3.0)
Mechanical prosthetic valves: (Range: 2.5-3.5) Observation Date Value Abnormality Reference (Units ) Status INR in Capillary blood by Coagulation assay 08/30/2023 08:30:24 1.4 (INR) Final Performing Location
--- OUTSIDE RECORDS SUMMARY | 2023-09-15 10:03 | External Medical Summary | Summary of Care ---
Author Name Unknown Organization [facility] Address [address] [place] [address] Phone [phone] Care Team Providers Care Occupational Health And Safety Manager Name Role Phone Jaime Garcia MD Primary Care Provide r Reason for Visit * Reason Onset Date Comments Appointment 08/29/2023 Munir Encounter Details Date Type Department Care Team (Late st Contact Info) Description 08/29/2023 Telephone [facility] Tyree UGARTE [address] [facility] [place] [address] Rosalio Amaral MD [address] [facility] [place] [address] Appointment (Munir) Allergies Active Allergy Reactions Criticality Noted Date [...] Use up to 16 weeks Given by [facility] 12 Packet 3 01/19/2021 [...] Information Patient taking differently: 50 mcg Oral [id number], Reported on 04/14/2023 Pantoprazole Sodium 20 MG [...] ons:Atrial fibrillation, unspecified type (HCC),Anticoagulat ion management encounter,jail current use of anticoagulant therapy,Paroxysmal atrial fibrillation [...] evening. 15 mL 3 07/19/2023 Active Pen [place] 32G X 4 MM Use as directed. [...] Tablet (Oxy IR)Indications:Mul tiple myeloma in relapse ([facility]) Take 1 Tablet by mouth every 4 [...] disease, without long-term current use of insulin ([facility]) Use as directed to check [...] myeloma without remission 06/14/2014 Overview: Dr Rodriges/ [facility] ADVANCE DIRECTIVE INFORMATION 10/13/2006 Overview: [...] encounter Miscellaneous Notes * Telephone Encounter - Anna Daniel RN - 08/30/2023 3:48 PM EST Call returned to patient he is aware that he has to [facility] with [facility] him[facility] after he is feeling better. I explained I would talk to Dr Amaral and follow up with him tomorrow about the darzalex and how he was in the hospital twice in one month. Pt is aware that I willfollow up with him in th am. * Telephone Encounter - Haley Montejo OSA - 08/29/2023 2:47 PM EST Patient is calling to get scheduled for chemotherapy at [facility]. I reached out to the nurses there and they said to message DR Amaral's office to see if he is ok to get rescheduled. Patient was recently in the hospital. Please call patient back to advise. documented in this encounter Plan of Treatment Upcoming Encounters Date Type Department Care Team (Late st Contact Info) Description 09/01/2023 8:40 AM EST Anticoagulation Pharmacy, [address] [place] [address] [place] [address] 09/02/2023 8:30 AM EST Office Visit Cardiology, [facility] [address] [place] [address] Beth Gibbs CRNP [address] [place] [place] [address] 09/09/2023 4:00 PM EST [facility], [facility] 132 [facility] [place] [address] Sulma Seth, RN 132 [facility] [place] [address] 09/13/2023 9:00 AM EST Office Visit Cardiology, [facility] 132 [facility] [place] [address] Beth Salter CRNP 400 [facility] [place] [phone] 11/23/2023 9:40 AM EDT Office Visit Nephrology, [facility] 200 [facility] [place] [address] Armando Cook MD 200 [facility] [place] [address] Health Maintenance Due Date Last Done Comments [...] Additional history exists CKD HGB USE SMARTSET 82279 08/16/202408/16, 07/25/2023, 07/25/2023, Additional history exists CKD PHOS USE SMARTSET 91970 08/16/202401/2023, 07/25/2023, 07/06/2023, Additional history exists DTaP,Tdap,and [...] this encounter Medical Devices Implanted Type Area Block Hacker Device Identifier Shelf Expiration Date Model / Serial / Lot Port Power Mri W/8fr Cath - [id number] Implanted:Qty: 1 on 09/26/2020 by Simone Michelle MD at OR [facility] Right: Chest CR BARD : PERIPHERAL VASCULAR 10/12/2021 [id number] / / [id number] Description:right IJ Lens Intraoc 19.0 - [id number] - [id number] Implanted:Qty: 1 on 02/03/2021 by Chris Sexton MD at OR [facility] Right: Eye BAUSCH [employer] LOMB 09/11/2025 [id number] / [id number] / Lens Intraoc 19.0 - [id number] - [id number] Implanted:Qty: 1 on 02/24/2021 by Chris Sexton MD at OR [facility] Left: Eye BAUSCH & LOMB 10/12/2025 [id number] / [id number] System Urolift - [id number] Implanted:Qty: 3 on 03/17/2023 by Devyn Paniagua MD at OR [facility] N/A: Urethra [employer] 11/03/2023 [id number] / / [id number] documented as of this encounter Advance Directives [...] and were consensually agreed upon. Care Teams Occupational Health And Safety Manager Relationship Specialty Start Date End Date Jaime Garcia MD [address] [place] [address] [place] [phone] PCP - General Family Medicine 10/15/20 documented as of this encounter
--- OUTSIDE RECORDS SUMMARY | 2023-09-15 10:04 | External Medical Summary | Summary of Care ---
Author Name Unknown Organization [facility] Address [address] [place] [address] Phone [phone] Care Team Providers Care Shoes Hand Sewer Name Role Phone Jaime Garcia MD Primary Care Provide r Reason for Visit * Reason Onset Date Comments Appointment 08/29/2023 Encounter Details Date Type Department Care Team (Late st Contact Info) Description 08/29/2023 Telephone [facility] [address] [place] [address] Services, Scheduling [address] [place] [address] Appointment (//) Allergies Active Allergy Reactions Criticality Noted Date Comments Atorvastatin Muscle pain High 03/30/2019 Ezetimibe Muscle pain High 01/25/2020 documented as of this encounter (statuses as of 08/29/2023) Medications Medication Sig Dispensed Refills Start Date [...] Use up to 16 weeks Given by [facility] general surgery 12 Packet 3 01/19/2021 Active OneTouch Ultra Blue In Vitro Strip (Glucose Blood)Indications: Type 2 diabetes mellitus with hemoglobin A1c goal of less than 7.0% ([facility]) Use as directed daily. Test once daily DxE11.9 100 Strip 5 03/02/2021 Active LancetsIndications :Type 2 diabetes mellitus with hemoglobin A1c goal of less than 7.0% ([facility]) Test once daily DxE11.9. 100 [...] Information Patient taking differently: 50 mcg Oral [id number], Reported on 04/14/2023 Pantoprazole Sodium 20 MG [...] ons:Atrial fibrillation, unspecified type (HCC),Anticoagulat ion management encounter,group home current use of anticoagulant therapy,Paroxysmal atrial [...] A1c goal of less than 7.0% ([facility]) Take 2 Tablets by mouth in the morning. 180 Tablet 1 07/11/2023 Active Insulin Glargine Solostar 100 UNIT/ML Subcutaneous Solution Pen-injector (Lantus SoloStar) Inject 10 Units under the skin every evening. 15 mL 3 07/19/2023 Active Pen Hooper 32G X 4 MM Use as directed. [...] (Oxy IR)Indications:Mul tiple myeloma in relapse ([facility]) Take 1 Tablet by mouth every [...] without long-term current use of insulin ([facility]) Use as directed to check blood sugars daily. Change every 10 days. DxE11.9. 3 Each 3 08/22/2023 Active Folic Acid 400 MCG Oral TabletIndications: Low folate TAKE ONE TABLET BY MOUTH IN THE MORNING 90 Tablet 1 08/27/2023 08/26/20 24 Active documented as of this encounter (statuses as of 08/29/2023) Active Problems Problem Noted Date Diagnosed Date [...] myeloma without remission 06/14/2014 Overview: Dr Rodriges/ [facility] ADVANCE DIRECTIVE INFORMATION 10/13/2006 Overview: No, Advance Directive brochure offered , patient declined. Degeneration of lumbosacral intervertebral disc 02/19/2005 documented as of this encounter (statuses as of 08/29/2023) Resolved Problems Problem Noted Date Diagnosed Date [...] as of this encounter (statuses as of 08/29/2023) Immunizations Name Administration Dates Next Due COVID-19, [...] encounter Miscellaneous Notes * Telephone Encounter - Beba Ramirez OSA - 08/29/2023 3:46 PM EST Request to cx and rs appt from 09/01 w/RNCM I called and Jerardo was agreeable to changing it to 09/09@4 documented in this encounter Plan of Treatment Upcoming Encounters Date Type Department Care Team (Late st Contact Info) Description 08/30/2023 8:20 AM EST Anticoagulation Pharmacy, [address] [place] [id number] [place] [id number] 09/09/2023 4:00 PM EST Home Visit [facility] [address] [place] [address] Sulma Seth, BOBBY [address] [facility] [place] [address] 09/13/2023 9:00 AM EST Office Visit Cardiology, Health system [address] [place] [address] Beth Salter CRNP [address] [facility] [place] [phone] 11/23/2023 9:40 AM EDT Office Visit Nephrology, Carla Renae [address] [facility] [place] [address] Armando Cook MD [address] [place] [address] Health Maintenance Due Date Last Done Comments [...] Additional history exists CKD HGB USE SMARTSET 20863 08/16/202408/16, 07/25/2023, 07/25/2023, Additional history exists CKD PHOS USE SMARTSET 19326 08/16/2024 120 01/2023, 07/25/2023, 07/06/2023, Additional history [...] this encounter Medical Devices Implanted Type Area Delicatessen Department Manager Device Identifier Shelf Expiration Date Model / Serial / Lot Port Power Mri W/8fr Cath - [id number] Implanted:Qty: 1 on 09/26/2020 by Simone Michelle MD at OR [facility] Right: Chest CR BARD : PERIPHERAL VASCULAR 10/12/2021 [id number] / / [id number] Description:right IJ Lens Intraoc 19.0 - [id number] - [id number] Implanted:Qty: 1 on 02/03/2021 by Chris Sexton MD at OR [facility] Right: Eye [employer] 09/11/2025 [id number] / [id number] / Lens Intraoc 19.0 - [id number] - [id number] Implanted:Qty: 1 on 02/24/2021 by Chris Sexton MD at OR [facility] Left: Eye [employer]OM[employer] 10/12/2025 [id number] / [id number] / [id number] System Urolift - [id number] Implanted:Qty: 3 on 03/17/2023 by Devyn Paniagua MD at OR [facility] N/A: Urethra [employer] 11/03/2023 [id number] / / [id number] documented as of this encounter Advance Directives [...] and were consensually agreed upon. Care Teams Shoes Hand Sewer Relationship Specialty Start Date End Date Jaime Garcia MD [address] [place] [address] [place] [id number] PCP - General Family Medicine 10/15/20 documented as of this encounter
--- OUTSIDE RECORDS SUMMARY | 2023-09-15 10:04 | External Medical Summary | Summary of Care ---
Author Name Unknown Organization [facility] Address [address] [place] [address] Phone [phone] Care Team Providers Care Online Communications Manager Name Role Phone Jaime Day MD Primary Care Provide r Reason for Visit * Reason Comments Medication Refill Encounter Details Date Type Department Care Team (Late st Contact Info) Description 08/27/2023 Refill Family Medicine [address] [place] [phone] Jaime Day MD [address] [place] [address] [place] [address] Low folate Allergies Active Allergy Reactions Criticality Noted Date Comments Atorvastatin Muscle pain High 03/30/2019 Ezetimibe Muscle pain High 01/25/2020 documented as of this encounter (statuses as of 08/27/2023) Medications Medication Sig Dispensed Refills Start Date [...] Use up to 16 weeks Given by [facility] general surgery 12 Packet 3 1 Active OneTouch Ultra Blue In Vitro Strip (Glucose Blood)Indications: Type 2 diabetes mellitus with hemoglobin A1c goal of less than 7.0% ([facility]) Use as directed daily. Test once daily DxE11.9 100 Strip 5 1 Active LancetsIndications :Type 2 diabetes mellitus with hemoglobin A1c goal of less than 7.0% ([facility]) Test once daily DxE11.9. 100 Each [...] Information Patient taking differently: 50 mcg Oral [id number], Reported on 04/14/2023 Pantoprazole Sodium 20 MG [...] of less than 7.0% ([facility]) Take 2 Tablets by mouth in the morning. 180 Tablet 1 3 Active Insulin Glargine Solostar 100 UNIT/ML Subcutaneous Solution Pen-injector (Lantus SoloStar) Inject 10 Units under the skin every evening. 15 mL 3 3 Active Pen Engelhard 32G X 4 MM Use as directed. [...] long-term current use of insulin ([facility]) Use as directed to check blood sugars daily. Change every 10 days. DxE11.9. 3 Each 3 3 Active Folic Acid 400 MCG Oral TabletIndications: Low folate TAKE ONE TABLET BY MOUTH IN THE MORNING 90 Tablet 1 3 08/26/20 24 Active Folic Acid 400 MCG Oral TabletIndications: Low folate TAKE ONE TABLET BY MOUTH IN THE MORNING 90 Tablet 1 3 08/27/20 23 Discontinu ed(Refill) documented as of this encounter (statuses as of 08/27/2023) Active Problems Problem Noted Date Diagnosed Date [...] remission 06/14/2014 Overview: Dr Rodriges/ [facility] ADVANCE DIRECTIVE INFORMATION 10/13/2006 Overview: No, Advance Directive brochure offered , patient declined. Degeneration of lumbosacral intervertebral disc 02/19/2005 documented as of this encounter (statuses as of 08/27/2023) Resolved Problems Problem Noted Date Diagnosed Date [...] as of this encounter (statuses as of 08/27/2023) Immunizations Name Administration Dates Next Due COVID-19, [...] encounter Miscellaneous Notes * Telephone Encounter - Radha Gale [facility] - 08/27/2023 2:20 PM ESTSigned Prescriptions: Disp Refills Folic Acid 400 MCG Oral Tablet 90 Tab*1 Sig: TAKE ONE TABLET BY MOUTH IN THE MORNINGAuthorizing Provider: Joseluis DAY User: RADHA GALE documented in this encounter Plan of Treatment Upcoming Encounters Date Type Department Care Team (Late st Contact Info) Description 09/01/2023 12:30 PM EST Home Visit [facility] [address] [facility] [address] [place] [address] Sulma Seth RN [address] [place] [address] 09/13/2023 9:00 AM EST Office Visit Cardiology, [facility] [address] [place] [address] Beth Salter CRNP [address] [place] [address] [place] [phone] 11/23/2023 9:40 AM EDT Office Visit Nephrology, [place] Ren[place] [address] [place] [address] Armando Cook MD [address] [place] [address] Health Maintenance Due Date Last Done Comments [...] Additional history exists CKD HGB USE SMARTSET 46466 08/16/202408/16, 07/25/2023, 07/25/2023, Additional history exists CKD PHOS USE SMARTSET 32696 08/16/2024 12/0 01/2023, 07/25/2023, 07/06/2023, Additional history [...] this encounter Medical Devices Implanted Type Area Conduit Bender Device Identifier Shelf Expiration Date Model / Serial / Lot Port Power Mri W/8fr Cath - [id number] Implanted:Qty: 1 on 09/26/2020 by Simone Michelle MD at OR [facility] Right: Chest CR BARD : PERIPHERAL VASCULAR 10/12/2021 [id number] / / [id number] Description:right IJ Lens Intraoc 19.0 - [id number] - [id number] Implanted:Qty: 1 on 02/03/2021 by Chris Sexton MD at OR [facility] Right: Eye [employer] 09/11/2025 [id number] / [id number] / Lens Intraoc 19.0 - [id number] - [id number] Implanted:Qty: 1 on 02/24/2021 by Chris Sexton MD at OR [facility] Left: Eye [employer]OM[employer] 10/12/2025 [id number] / [id number] / [id number] System Urolift - [id number] Implanted:Qty: 3 on 03/17/2023 by Devyn Paniagua MD at OR [facility] N/A: Urethra [employer] 11/03/2023 [id number] / / [id number] documented as of this encounter Visit Diagnoses Diagnosis Low folate documented in this encounter Advance Directives Latest [...] and were consensually agreed upon. Care Teams Online Communications Manager Relationship Specialty Start Date End Date Jaime Day MD [address] [place] [address] [place] [phone] PCP - General Family Medicine 10/15/20 documented as of this encounter
[2023-09-15 10:12] LABS: INR 2.5 (0.9-1.1); Prothrombin Time 25.9 Seconds (9.0-12.0)
[2023-09-15] MEDS: INSULIN ASPART PER UNIT CHARGE SC SCH ×4 (10:28→20:57)
[2023-09-15] MEDS: LEVOTHYROXINE SODIUM 50 MCG TABLET PO SCH (11:16)
[2023-09-15] MEDS: DULoxetine HCL 20 MG CAP PO SCH (11:28)
[2023-09-15] MEDS: MAGNESIUM CHLORIDE W/CALCIUM 64MG DELAYED REL TAB PO SCH ×2 (11:29→20:58)
[2023-09-15] MEDS: FINASTERIDE 5 MG TAB PO SCH (11:29)
[2023-09-15] MEDS: DAPSONE 25 MG TAB PO SCH (11:29)
[2023-09-15] MEDS: MIDODRINE HCL 10 MG TAB PO SCH ×2 (11:29→18:41)
[2023-09-15] MEDS: CHOLECALCIFEROL 1,000 UNITS 25 MCG TAB PO SCH (11:29)
[2023-09-15] MEDS: ACYCLOVIR 400 MG TAB PO SCH (11:29)
[2023-09-15] MEDS: FOLIC ACID 400 MCG TAB PO SCH (11:29)
[2023-09-15] MEDS: LANTUS PER UNIT CHARGE SQ SCH (11:30)
[2023-09-15] MEDS: NYSTATIN SUSP 500,000 U/5 ML UDC PO SCH ×4 (11:30→20:59)
--- NOTE | 2023-09-15 13:24 | Infectious Disease Consult ---
Date of Service September 15, 2023 Telehealth Information I performed this visit using a real-time telehealth connection between my location and the patients location ([facility]). After connecting through interactive tele-video, patient was identified by name and date of and/or wristband check.Patient (or authorized healthcare sales and marketing representative) was informed that this was a telemedicine visit and it was being conducted confidentially over secure lines. My office door was closed and no o ne else was present in the room with me.Patient (or authorized healthcare sales and marketing representative) provided consent to proceed with the visit, expressed an understanding of privacy and security of the telemedicine visit, and gave permission to have a hospital sales and marketing representative in the room in order to assist with the visit and to conduct portions of the visit, as needed. I informed the patient (or authorized healthcare sales and marketing representative) that I reviewed their record and presented the opportunity for them to ask any questions regarding the visit today. The patient agreed to participate. Assessment & Plan Plan Patient who was diagnosed with salmonella diarrhea in July 2023 and treated with IV ceftriaxone and then bactrim to complete 14 days .He developed diarrhea on and up to yesterday was having more than 20 watery stools a day.I would recommend treating him with IV ceftriaxone while inpatient ,Obtain a stool analysis and request susceptibilities so we can be sure he is on the correct antibiotic .Obtain blood cultures to determine if he salmonella bacteremia and a HIV test .If this is a true relapse would recommend treating him for 4-6 weeks .Thank you for allowing us to participate in the care of this patient ID will continue to follow History of Present Illness History of Present Illness 53-year-old male with past med history significant for type 2 diabetes, hyperlipidemia, obstructive sleep apnea, paroxysmal atrial fibrillation, cardiac amyloidosis, chronic heart failure with preserved ejection fraction, nonocclusive coronary disease, CKD stage III, congenital solitary right kidney, BPH, peripheral neuropathic pain, chemotherapy-induced neuropathy, degeneration of lumbosacral sacral disc, multiple myeloma without remission, statin intolerance presents with diarrhea. Patient was admitted last week of July with diarrhea and electrolyte abnormalities and the stool studies showed Salmonella. Initially treated with fluoroquinolones but had prolonged QT so was discharged on Bactrimto complete 14 days . Again admitted in August 26, 2023 with hypotension and ARSENIO. His midodrine was increased to 20 mg 3 times daily. He did okay and was discharged on August 28. On he developed diarrhea initially mild but progressively worsened . Outpatient stool studies again showing Salmonella and he is currently on ceftriaxone Allergies Allergy/AdvReac Type Severity Reaction Status Date / Time NSAIDS (Non-Steroidal AdvReac Advised by Verified 08/26/23 14:53 Anti-Inflamma nephrology to avoid d/t CKD Guhrneu-ITB-RzP Reductase AdvReac Muscle Pain Verified 08/26/23 14:53 Inhibitor Home Medications Medication Instructions Recorded Confirmed Type acyclovir 400 mg tablet 400 mg PO DAILY 09/15/23 09/15/23 History albuterol 90 mcg/actuation aerosol 2 mcg inhalation Q4H PRN Shortness 09/15/23 09/15/23 History inhaler Of Breath Or Wheezing cholecalciferol (vitamin D3) 50 2,000 unit PO DAILY 09/15/23 09/15/23 History mcg (2,000 unit) capsule (Vitamin D3) dapsone 25 mg tablet 25 mg PO DAILY 09/15/23 09/15/23 History dexamethasone 4 mg tablet 20 mg PO UD 09/15/23 09/15/23 History duloxetine 20 mg capsule,delayed 40 mg PO DAILY 09/15/23 09/15/23 History release evolocumab 140 mg/mL subcutaneous 140 mg subcut UD 09/15/23 09/15/23 History pen injector (Sherry Doran) finasteride 5 mg tablet 5 mg PO DAILY 09/15/23 09/15/23 History folic acid 400 mcg tablet 400 mcg PO DAILY 09/15/23 09/15/23 History icosapent ethyl 1 gram capsule 2 g PO BID 09/15/23 09/15/23 History insulin glargine 100 unit/mL (3 10 unit subcut DAILY 09/15/23 09/15/23 History mL) subcutaneous pen (Lantus Solostar U-100 Insulin) levothyroxine 50 mcg tablet 50 mcg PO DAILY 09/15/23 09/15/23 History magnesium chloride 64 mg 64 mg PO BID 09/15/23 09/15/23 History (magnesium chloride) tablet,delayed release (Mag 64) metformin 500 mg tablet,extended 1,000 mg PO DAILY 09/15/23 09/15/23 History release 24 hr midodrine 10 mg tablet 20 mg PO TID 09/15/23 09/15/23 History nystatin 100,000 unit/mL oral 5 ml PO QID 09/15/23 09/15/23 History suspension ondansetron HCl 8 mg tablet 8 mg PO TID PRN Nausea And Vomiting 09/15/23 09/15/23 History oxycodone 5 mg tablet 5 mg PO Q4H PRN Pain 09/15/23 09/15/23 History pantoprazole 20 mg tablet,delayed 20 mg PO DAILY 09/15/23 09/15/23 History release potassium chloride 10 mEq 10 meq PO DAILY 09/15/23 09/15/23 History tablet,extended release tenofovir alafenamide 25 mg tablet 25 mg PO DAILY 09/15/23 09/15/23 History (Vemlidy) torsemide 20 mg tablet 20 mg PO DAILY 09/15/23 09/15/23 History warfarin 2.5 mg tablet 1.25 mg PO DAILY 09/15/23 09/15/23 History Patient History Medical History Diarrhea Acute dehydration Elevated lactic acid level Hypokalemia Salmonella enteritis Cardiac amyloidosis CAD (coronary artery disease) Nonobstructive GERD (gastroesophageal reflux disease) Atrial fibrillation Follows with [facility]/Tim SAUCEDO Low back problem BPH (benign prostatic hyperplasia) CKD (chronic kidney disease) Follows with [facility]/Dr. 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 Amaral [facility] Surgical History History of surgery vasectomy reversal History of surgery Urolift History of vascular access device Right chest port (type unknown) History of cataract surgery History of cardiac cath Right heart cath (2018) History of colonoscopy History of esophagogastroduodenoscopy (EGD) H/O vasectomy Family History Father No problems noted. Mother No problems noted. Other Adopted Social History Smoking Status: Never smoker Tobacco Type: Cigarettes Second Hand Exposure: No; Do You Dip or Chew Tobacco: No; Hx Alcohol Use: No Hx Substance Use: No Preferred Language: Lao Communication Ability: Effective Carpet Renovator Required: No Beliefs That Will Affect Care: None marital status: marital status details: twice - 3 children in total between the 2 marriages Current Living Situation: Spouse Current Living Situation Comment: lives in [place] current occupational status: disabled current occupation: previously worked at [employer] Feels Safe at Home: Yes Safety Concerns: Feels Safe At This Time Assistive Devices: Cane Review of Systems Diarrhea generalized weakness Physical Exam awake alert orientated no respiratory distress mild abdominal pain Results & Data Vital Signs (Past 12 Hours) Vital Signs Temp Pulse Pulse Resp BP BP Pulse Ox 09/15/23 10:52 36.7 C 83 16 90/58 L 95 09/15/23 10:30 90/58 L 09/15/23 10:18 84 115/75 09/15/23 09:39 09/15/23 09:30 84 96/65 L 09/15/23 09:14 95/64 L 09/15/23 08:30 89 24 96/54 L 97 09/15/23 08:01 92 H 24 90/40 L 09/15/23 07:30 36.7 C 09/15/23 07:01 93 H 24 97/71 L 97 09/15/23 06:30 91 H 29 H 113/62 09/15/23 06:29 91 H 18 113/62 94 09/15/23 06:23 90 09/15/23 05:06 37.3 C 96 H 16 128/76 94 Pulse Ox O2 Del Method O2 Del Method 09/15/23 10:52 Room Air 09/15/23 10:30 09/15/23 10:18 09/15/23 09:39 97 Room Air 09/15/23 09:30 09/15/23 09:14 09/15/23 08:30 Room Air 09/15/23 08:01 09/15/23 07:30 09/15/23 07:01 Room Air 09/15/23 06:30 09/15/23 06:29 Room Air 09/15/23 06:23 09/15/23 05:06 Room Air, Nasal Cannula
[2023-09-15] MEDS: WARFARIN SOD 1.25 MG TAB PO SCH (18:38)
[2023-09-15] MEDS ORDERED: PROCHLORPERAZINE 5 MG in SYRINGE 4 ML IV PRN (19:12)
[2023-09-15 23:35] LABS: Appearance Urine Clear (Clear); Bilirubin Urine Negative (Negative); Blood Urine Negative (Negative); Color Urine Orange; Glucose Urine UA Negative (Negative); Ketones Urine Negative (Negative); Leukocyte Esterase Urine Negative (Negative); Nitrite Urine Negative (Negative); Protein Urine 3+ (Negative); Specific Gravity Urine 1.025 (1.000-1.030); Urobilinogen Urine Negative (Negative)
[2023-09-15 23:53] LABS: Bacteria Urine Negative (Negative); Epithelial Cell Urine 0-5 /lpf (0-5); Mucus Urine Present (None Prsent); RBC Urine 0-4 /hpf (0-4); WBC Urine 0-5 /hpf (0-5)
[2023-09-16 00:52] LABS: Adenovirus F 40/41 PCR Not Detected (NotDetected); Astrovirus PCR Not Detected (NotDetected); Campylobacter PCR Not Detected (NotDetected); Cryptosporidium PCR Not Detected (NotDetected); Cyclospora cayetanensis PCR Not Detected (NotDetected); Entamoeba histolytica PCR Not Detected (NotDetected); Enteroaggregative E.coli(EAEC) Not Detected (NotDetected); Enteropathogenic E.coli (EPEC) Not Detected (NotDetected); Enterotoxigenic E.coli (ETEC) Not Detected (NotDetected); Giardia lamblia PCR Not Detected (NotDetected); Norovirus GI/GII PCR Not Detected (NotDetected); Plesiomonas shigelloides PCR Not Detected (NotDetected); Rotavirus A PCR Not Detected (NotDetected); Sapovirus PCR Not Detected (NotDetected); Shiga-like Toxin E.coli (STEC) Not Detected (NotDetected); Shigella/Enteroinvasive E.coli Not Detected (NotDetected); Vibrio cholerae PCR Not Detected (NotDetected); Vibrio species PCR Not Detected (NotDetected); Yersinia enterocolitica PCR Not Detected (NotDetected)
[2023-09-16 00:57] LABS: Salmonella PCR DETECTED (NotDetected)
[2023-09-16] MEDS ORDERED: cefTRIAXone SODIUM 2,000 MG in DEXTROSE 5 % MINI-B 50 ML IV SCH (05:30)
[2023-09-16] MEDS: LEVOTHYROXINE SODIUM 50 MCG TABLET PO SCH (05:42)
[2023-09-16] MEDS: cefTRIAXone SODIUM 2,000 MG in DEXTROSE 5 % MINI-B 50 ML IV SCH (05:42)
[2023-09-16 06:03] LABS: Basophils # (auto) 0.05 K/uL (0.00-0.20); Basophils % (auto) 0.8 %; Eosinophils # (auto) 0.16 K/uL (0.00-0.50); Eosinophils % (auto) 2.4 %; Hematocrit (blood only) 31.2 % (42.0-52.0); Hemoglobin 10.5 g/dl (14.0-18.0); Immature Granulocytes # (auto) 0.02 K/uL (0.01-0.20); Immature Granulocytes % (auto) 0.3 %; Lymphocytes # (auto) 0.75 K/uL (1.20-3.40); Lymphocytes % (auto) 11.5 %; Mean Corpuscular Hemoglobin 32.5 pg (25.0-34.0); Mean Corpuscular Hgb Conc 33.7 g/dL (32.0-36.0); Mean Corpuscular Volume 96.6 fL (80.0-100.0); Mean Platelet Volume 9.9 fL (9.4-12.4); Monocytes % (auto) 18.3 %; Neutrophils # (auto) 4.36 K/uL (1.40-6.50); Neutrophils % (auto) 66.7 %; Platelet Count 350 K/uL (130-400); RDW Coefficient of Variation 15.9 % (11.5-14.5); RDW Standard Deviation 56.7 fL (36.4-46.3); Red Blood Count 3.23 M/uL (4.70-6.10); White Blood Count 6.54 K/ul (4.8-10.8)
[2023-09-16 06:18] LABS: BUN Creatinine Ratio 11.5 (10-20); Calcium 8.3 mg/dl (8.6-10.3); Creatinine Clr Calc Pharmacy 63.6 ml/min; Est GFR (African American) 72.2 ml/min; Est GFR (Non-African American) 62.3 ml/min; Magnesium 1.9 mg/dl (1.7-2.4); Phosphorus 2.3 mg/dl (2.5-4.9)
[2023-09-16 06:30] LABS: INR 2.6 (0.9-1.1); Prothrombin Time 26.7 Seconds (9.0-12.0)
--- NOTE | 2023-09-16 07:18 | Hospitalist Progress Note ---
Date of Service September 16, 2023 Assessment & Plan (1) Salmonella enteritis: Plan: Mr. Ochoa is a 53-year-old male with past medical history significant for type 2 diabetes, hyperlipidemia, obstructive sleep apnea, paroxysmal atrial fibrillation, cardiac amyloidosis, multiple myeloma without remission, currently on chemo, nonobstrutive CAD, chronic heart failure with preserved ejection fraction, chronic kidney disease stage III, congenital solitary right kidney, BPH, peripheral neuropathic pain, chemotherapy-induced neuropathy, anxiety, presents with diarrhea and hypotension and electrolyte abnormalities. He is being managed for the following: #Acute dehydration #Gastroenteritis 2/2 Diarrhea #Recurrent Salmonella infection Still with liquid stool, but decreased frequency since presentation ID evaluated 08/10, appreciate recs planned 2-week course of Cipro 08/10 --> to Bactrim 08/12 [due to prolonged QTc] completed course 08/24 -Continue probiotics -Continue CTX IV -blood cultures ordered -attempting stool analysis, likely send out through [facility], awaiting confirmation with lab--coordinating appropriate send-out order -HIV test ordered with patient consent #Paroxysmal Atrial Fibrillation #supratherapeutic INR: On Coumadin. Was on amiodarone few months back per patient. Follow PT/INR - initially coumadin on hold due to elevated pt/inr. might need temporary dose reduction of coumadin while on antibiotic. [employer] coumadin dose 1.25 mg daily per patient. Currently NSR. 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 -Last treatment with Darzalecx Faspro on 07/25, Xgeva held 2/2 low phos, cytoxan held per request -Continue Dapsone, Acyclovir, and Tenovir -Continue Hizentra upon discharge per discretion of Heme/Onc provider #Diabetes: Hold home metformin 1000mg daily SSI ACHS, lantus 5U daily Liberalize diet 2/2 poor po intake #Nonobstructive CAD s/p cath 2018 #HLD -Can resume repatha upon discharge -Resume vascepa upon discharge -Did not tolerate BB previously #Ambulatory dysfunction, amiodarone use v MSK #Lower extremity weakness PT/OT #Orthostatic hypotension: On midodrine as needed #Hypothyroidism: TSH 2.22 -Continue Synthyroid #BPH s/p urolift Follows urology OP Continue finasteride #GERD: Protonix #Obstructive sleep apnea on CPAP nightly #CKD stage III/Solitary kidney: Cr now better than his baseline. DVT PX on Coumadin. Disposition: Tele floor. PT/OT Full code request to call her if any change in medical condition. 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 [employer] Admission and Anticipated Discharge Date Admission Date: September 15, 2023 Subjective NAEO Reports feeling better, noting that Compazine aided with his nausea Physical Exam Constitutional: WD/WN, vitals as above Respiratory: normal respiratory effort, lungs clear to auscultation Cardiovascular: RRR, no murmur, no edema Results & Data Results & Data Vital Signs (Past 12 Hours) Vital Signs Temp Pulse Pulse Resp BP BP BP 09/16/23 04:00 36.5 C 73 18 115/78 09/16/23 02:26 77 17 09/15/23 23:01 81 09/15/23 22:51 73 19 09/15/23 22:25 36.9 C 82 18 125/76 09/15/23 22:00 99/69 L 09/15/23 20:30 81 16 136/102 H 09/15/23 20:00 80 16 136/96 Pulse Ox O2 Del Method O2 Flow Rate 09/16/23 04:00 97 CPAP 09/16/23 02:26 2 09/15/23 23:01 09/15/23 22:51 95 2 09/15/23 22:25 94 Room Air 09/15/23 22:00 09/15/23 20:30 97 09/15/23 20:00 92 Laboratory Results Short CBC 09/16/23 Range/Units 05:24 WBC 6.54 (4.8-10.8) K/ul Hgb 10.5 L (14.0-18.0) g/dl Hct 31.2 L (42.0-52.0) % Plt Count 350 (130-400) K/uL BMP 09/16/23 05:24 Sodium 139 Potassium 4.0 Chloride 109 H Carbon Dioxide 25 BUN 15 Creatinine 1.30 Glucose 72 Calcium 8.3 L Urine 09/15/23 Range/Units 23:22 Urine Color [place] Urine Appearance Clear (Clear) Urine pH 6.0 (4.5-7.5) Ur Specific [place] 1.025 (1.000-1.030) Urine Protein 3+ H (Negative) Urine Glucose (UA) Negative (Negative) Medications Administered Home Medications Medication Instructions Recorded Confirmed Last Taken acyclovir 400 mg tablet 400 mg PO DAILY 09/15/23 09/15/23 Unknown albuterol 90 mcg/actuation aerosol 2 mcg inhalation Q4H PRN Shortness 09/15/23 09/15/23 Unknown inhaler Of Breath Or Wheezing cholecalciferol (vitamin D3) 50 2,000 unit PO DAILY 09/15/23 09/15/23 Unknown mcg (2,000 unit) capsule (Vitamin D3) dapsone 25 mg tablet 25 mg PO DAILY 09/15/23 09/15/23 Unknown dexamethasone 4 mg tablet 20 mg PO UD 09/15/23 09/15/23 Unknown duloxetine 20 mg capsule,delayed 40 mg PO DAILY 09/15/23 09/15/23 Unknown release evolocumab 140 mg/mL subcutaneous 140 mg subcut UD 09/15/23 09/15/23 Unknown pen injector (Sherry Doran) finasteride 5 mg tablet 5 mg PO DAILY 09/15/23 09/15/23 Unknown folic acid 400 mcg tablet 400 mcg PO DAILY 09/15/23 09/15/23 Unknown icosapent ethyl 1 gram capsule 2 g PO BID 09/15/23 09/15/23 Unknown insulin glargine 100 unit/mL (3 10 unit subcut DAILY 09/15/23 09/15/23 Unknown mL) subcutaneous pen (Lantus Solostar U-100 Insulin) levothyroxine 50 mcg tablet 50 mcg PO DAILY 09/15/23 09/15/23 Unknown magnesium chloride 64 mg 64 mg PO BID 09/15/23 09/15/23 Unknown (magnesium chloride) tablet,delayed release (Mag 64) metformin 500 mg tablet,extended 1,000 mg PO DAILY 09/15/23 09/15/23 Unknown release 24 hr midodrine 10 mg tablet 20 mg PO TID 09/15/23 09/15/23 Unknown nystatin 100,000 unit/mL oral 5 ml PO QID 09/15/23 09/15/23 Unknown suspension ondansetron HCl 8 mg tablet 8 mg PO TID PRN Nausea And Vomiting 09/15/23 09/15/23 Unknown oxycodone 5 mg tablet 5 mg PO Q4H PRN Pain 09/15/23 09/15/23 Unknown pantoprazole 20 mg tablet,delayed 20 mg PO DAILY 09/15/23 09/15/23 Unknown release potassium chloride 10 mEq 10 meq PO DAILY 09/15/23 09/15/23 Unknown tablet,extended release tenofovir alafenamide 25 mg tablet 25 mg PO DAILY 09/15/23 09/15/23 Unknown (Vemlidy) torsemide 20 mg tablet 20 mg PO DAILY 09/15/23 09/15/23 Unknown warfarin 2.5 mg tablet 1.25 mg PO DAILY 09/15/23 09/15/23 Unknown Active Medications Generic Name Dose Route Start Last Admin Trade Name Freq PRN Reason Stop Dose Admin Acyclovir 400 mg 09/15/23 09:30 09/16/23 08:24 Acyclovir 400 Mg Tab PO 10/15/23 09:29 400 mg DAILY JOSE Administration Dapsone 25 mg 09/15/23 10:00 09/16/23 08:23 Dapsone 25 Mg Tab PO 10/15/23 09:59 25 mg DAILY JOSE Administration Duloxetine HCl 40 mg 09/15/23 09:30 09/16/23 08:24 Duloxetine Hcl 20 Mg Cap PO 10/15/23 09:29 40 mg DAILY JOSE Administration Finasteride 5 mg 09/15/23 09:30 09/16/23 08:23 Finasteride 5 Mg Tab PO 10/15/23 09:29 5 mg DAILY JOSE Administration Folic Acid 400 mcg 09/15/23 09:30 09/16/23 08:23 Folic Acid 400 Mcg Tab PO 10/15/23 09:29 400 mcg DAILY JOSE Administration Ceftriaxone Sodium 2,000 mg/ 50 mls @ 100 mls/hr 09/16/23 06:00 09/16/23 06:17 Dextrose IV 09/26/23 05:59 Infused Q24H JOSE Infusion Protocol Prochlorperazine 5 mg/ Syringe 5 mls @ 5 mls/min 09/15/23 19:12 09/15/23 20:58 IV 10/15/23 19:11 5 mls/min Q6H PRN Administration Nausea And Vomiting Insulin Aspart 0 units 09/15/23 09:11 09/16/23 11:30 Insulin Aspart Per Unit Charge SC 10/15/23 09:10 Not Given ACHS JOSE Insulin Glargine 5 units 09/15/23 09:11 09/16/23 08:24 Lantus Per Unit Charge SQ 10/15/23 09:10 5 units DAILY JOSE Administration Levothyroxine Sodium 50 mcg 09/15/23 09:30 09/16/23 05:42 Levothyroxine Sodium 50 Mcg Tablet PO 10/15/23 09:29 50 mcg DAILYBB JOSE Administration Magnesium Chloride 64 mg 09/15/23 09:30 09/16/23 08:24 Magnesium Chloride W/Calcium 64mg Delayed Rel Tab PO 10/15/23 09:29 64 mg BID JOSE Administration Miscellaneous 1 each 09/15/23 16:00 09/16/23 11:31 Order Awaiting Action [Icosapent Ethyl 1 Gram Capsule)] N/A 10/15/23 15:59 Not Given QS JOSE Miscellaneous 1 each 09/15/23 16:00 09/16/23 11:31 Order Awaiting Action [Tenofovir Alafenamide [Vemlidy] 25 Mg Tablet] N/A 10/15/23 15:59 Not Given QS JOSE Nystatin 5 ml 09/15/23 09:30 09/16/23 11:31 Nystatin Susp 500,000 U/5 Ml Udc PO 09/25/23 09:29 Not Given QID JOSE Ondansetron HCl 4 mg 09/15/23 09:11 09/15/23 15:59 Ondansetron Inj 2 Mg/Ml 2 Ml Vial IV 10/15/23 09:10 4 mg Q6H PRN Administration Nausea Pantoprazole Sodium 40 mg 09/16/23 09:00 09/16/23 08:23 Pantoprazole 40 Mg Tab PO 10/15/23 09:29 40 mg DAILY JOSE Administration Potassium Phosphate 1 tab 09/16/23 09:00 09/16/23 12:03 Pot Phosphate Monobasic W/ Sod Tab PO 09/16/23 21:01 1 tab QID JOSE Administration Vitamin D 2,000 units 09/15/23 09:30 09/16/23 08:24 Cholecalciferol 1,000 Units 25 Mcg Tab PO 10/15/23 09:29 2,000 units DAILY JOSE Administration Warfarin Sodium 1.25 mg 09/15/23 16:00 09/15/23 18:38 Warfarin Sod 1.25 Mg Tab PO 10/15/23 15:59 1.25 mg TODAY@1600 JOSE Administration
[2023-09-16] MEDS: INSULIN ASPART PER UNIT CHARGE SC SCH ×4 (08:09→20:55)
[2023-09-16] MEDS: PANTOprazole 40 MG TAB PO SCH (08:23)
[2023-09-16] MEDS: DAPSONE 25 MG TAB PO SCH (08:23)
[2023-09-16] MEDS: FOLIC ACID 400 MCG TAB PO SCH (08:23)
[2023-09-16] MEDS: FINASTERIDE 5 MG TAB PO SCH (08:23)
[2023-09-16] MEDS: NYSTATIN SUSP 500,000 U/5 ML UDC PO SCH ×4 (08:23→20:56)
[2023-09-16] MEDS: DULoxetine HCL 20 MG CAP PO SCH (08:24)
[2023-09-16] MEDS: CHOLECALCIFEROL 1,000 UNITS 25 MCG TAB PO SCH (08:24)
[2023-09-16] MEDS: MAGNESIUM CHLORIDE W/CALCIUM 64MG DELAYED REL TAB PO SCH ×2 (08:24→20:57)
[2023-09-16] MEDS: LANTUS PER UNIT CHARGE SQ SCH (08:24)
[2023-09-16] MEDS: ACYCLOVIR 400 MG TAB PO SCH (08:24)
[2023-09-16] MEDS: POT PHOSPHATE MONOBASIC W/ SOD TAB PO SCH ×4 (08:27→20:56)
[2023-09-16] MEDS: Continuous Glucose Monitor SCH ×2 (16:14→20:55)
[2023-09-16] MEDS: WARFARIN SOD 1.25 MG TAB PO SCH (16:14)
[2023-09-17] MEDS: LEVOTHYROXINE SODIUM 50 MCG TABLET PO SCH (05:37)
[2023-09-17] MEDS: cefTRIAXone SODIUM 2,000 MG in DEXTROSE 5 % MINI-B 50 ML IV SCH (05:43)
[2023-09-17] MEDS: Continuous Glucose Monitor SCH ×4 (07:14→20:44)
[2023-09-17] MEDS: INSULIN ASPART PER UNIT CHARGE SC SCH ×4 (07:14→20:44)
[2023-09-17 07:15] LABS: Hematocrit (blood only) 32.7 % (42.0-52.0); Hemoglobin 10.6 g/dl (14.0-18.0); Mean Corpuscular Hemoglobin 31.8 pg (25.0-34.0); Mean Corpuscular Hgb Conc 32.4 g/dL (32.0-36.0); Mean Corpuscular Volume 98.2 fL (80.0-100.0); Mean Platelet Volume 10.1 fL (9.4-12.4); Platelet Count 349 K/uL (130-400); RDW Coefficient of Variation 15.9 % (11.5-14.5); RDW Standard Deviation 57.8 fL (36.4-46.3); Red Blood Count 3.33 M/uL (4.70-6.10); White Blood Count 7.89 K/ul (4.8-10.8)
[2023-09-17] MEDS: NYSTATIN SUSP 500,000 U/5 ML UDC PO SCH ×4 (07:15→20:44)
[2023-09-17] MEDS: DULoxetine HCL 20 MG CAP PO SCH (07:16)
[2023-09-17] MEDS: FINASTERIDE 5 MG TAB PO SCH (07:16)
[2023-09-17] MEDS: PANTOprazole 40 MG TAB PO SCH (07:16)
[2023-09-17] MEDS: CHOLECALCIFEROL 1,000 UNITS 25 MCG TAB PO SCH (07:16)
[2023-09-17] MEDS: FOLIC ACID 400 MCG TAB PO SCH (07:16)
[2023-09-17] MEDS: ACYCLOVIR 400 MG TAB PO SCH (07:16)
[2023-09-17] MEDS: DAPSONE 25 MG TAB PO SCH (07:16)
[2023-09-17] MEDS: MAGNESIUM CHLORIDE W/CALCIUM 64MG DELAYED REL TAB PO SCH ×2 (07:16→20:43)
--- NOTE | 2023-09-17 07:17 | Hospitalist Progress Note ---
Date of Service September 17, 2023 Assessment & Plan (1) Salmonella enteritis: Plan: Mr. Ochoa is a 53-year-old male with past medical history significant for type 2 diabetes, hyperlipidemia, obstructive sleep apnea, paroxysmal atrial fibrillation, cardiac amyloidosis, multiple myeloma without remission, currently on chemo, nonobstrutive CAD, chronic heart failure with preserved ejection fraction, chronic kidney disease stage III, congenital solitary right kidney, BPH, peripheral neuropathic pain, chemotherapy-induced neuropathy, anxiety, presents with diarrhea and hypotension and electrolyte abnormalities. He is being managed for the following: #Acute dehydration #Gastroenteritis 2/2 Diarrhea #Recurrent Salmonella infection Still with liquid stool, but decreased frequency since presentation ID evaluated 08/10, appreciate recs planned 2-week course of Cipro 08/10 --> to Bactrim 08/12 [due to prolonged QTc] completed course 08/24 -Continue probiotics -Continue CTX IV -blood cultures NGTD -susceptibilities pending for salmonella -HIV test in am with patient consent #Paroxysmal Atrial Fibrillation #supratherapeutic INR: On Coumadin. Was on amiodarone few months back per patient. Follow PT/INR - initially coumadin on hold due to elevated pt/inr. might need temporary dose reduction of coumadin while on antibiotic. [employer] coumadin dose 1.25 mg daily per patient. Currently NSR. 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 -Last treatment with Darzalecx Faspro on 07/25, Xgeva held 2/2 low phos, cytoxan held per request -Continue Dapsone, Acyclovir, and Tenovir #Diabetes: Hold home metformin 1000mg daily SSI ACHS, lantus 5U daily Liberalize diet 2/2 poor po intake #Nonobstructive CAD s/p cath 2018 #HLD -Can resume repatha upon discharge -Resume vascepa upon discharge -Did not tolerate BB previously #Ambulatory dysfunction, amiodarone use v MSK #Lower extremity weakness PT/OT #Orthostatic hypotension: On midodrine as needed #Hypothyroidism: TSH 2.22 -Continue Synthyroid #BPH s/p urolift Follows urology OP Continue finasteride #GERD: Protonix #Obstructive sleep apnea on CPAP nightly #CKD stage III/Solitary kidney: Cr now better than his baseline. DVT PX on Coumadin. Disposition: Tele floor. PT/OT Full code request to call her if any change in medical condition. 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 Notes that insurance does not cover home abx infusion and will likely have to attend daily appointment for CTX infusion Physical Exam Constitutional: WD/WN, vitals as above Respiratory: normal respiratory effort, lungs clear to auscultation Cardiovascular: RRR, no murmur, no edema Gastrointestinal (Abdomen): normal bowel sounds, soft, nontender, no hepatosplenomegaly Results & Data Results & Data Vital Signs (Past 12 Hours) Vital Signs Temp Pulse Pulse Resp BP Pulse Ox O2 Del Method 09/17/23 07:07 Room Air 09/17/23 05:57 74 09/17/23 04:00 36.7 C 78 18 131/87 98 Room Air 09/17/23 00:00 36.7 C 73 18 117/74 94 Room Air 09/16/23 22:15 75 20 96 09/16/23 21:56 75 09/16/23 19:40 36.8 C 79 18 133/91 97 Room Air O2 Flow Rate 09/17/23 07:07 09/17/23 05:57 09/17/23 04:00 09/17/23 00:00 09/16/23 22:15 2 09/16/23 21:56 09/16/23 19:40 Laboratory Results Short CBC 09/17/23 Range/Units 05:58 WBC 7.89 (4.8-10.8) K/ul Hgb 10.6 L (14.0-18.0) g/dl Hct 32.7 L (42.0-52.0) % Plt Count 349 (130-400) K/uL BMP 09/17/23 05:58 Sodium 138 Potassium 3.7 Chloride 105 Carbon Dioxide 25 BUN 11 Creatinine 1.32 Glucose 110 H Calcium 8.4 L Medications Administered Home Medications Medication Instructions Recorded Confirmed Last Taken acyclovir 400 mg tablet 400 mg PO DAILY 09/15/23 09/15/23 Unknown albuterol 90 mcg/actuation aerosol 2 mcg inhalation Q4H PRN Shortness 09/15/23 09/15/23 Unknown inhaler Of Breath Or Wheezing cholecalciferol (vitamin D3) 50 2,000 unit PO DAILY 09/15/23 09/15/23 Unknown mcg (2,000 unit) capsule (Vitamin D3) dapsone 25 mg tablet 25 mg PO DAILY 09/15/23 09/15/23 Unknown dexamethasone 4 mg tablet 20 mg PO UD 09/15/23 09/15/23 Unknown duloxetine 20 mg capsule,delayed 40 mg PO DAILY 09/15/23 09/15/23 Unknown release evolocumab 140 mg/mL subcutaneous 140 mg subcut UD 09/15/23 09/15/23 Unknown pen injector (Sherry Doran) finasteride 5 mg tablet 5 mg PO DAILY 09/15/23 09/15/23 Unknown folic acid 400 mcg tablet 400 mcg PO DAILY 09/15/23 09/15/23 Unknown icosapent ethyl 1 gram capsule 2 g PO BID 09/15/23 09/15/23 Unknown insulin glargine 100 unit/mL (3 10 unit subcut DAILY 09/15/23 09/15/23 Unknown mL) subcutaneous pen (Lantus Solostar U-100 Insulin) levothyroxine 50 mcg tablet 50 mcg PO DAILY 09/15/23 09/15/23 Unknown magnesium chloride 64 mg 64 mg PO BID 09/15/23 09/15/23 Unknown (magnesium chloride) tablet,delayed release (Mag 64) metformin 500 mg tablet,extended 1,000 mg PO DAILY 09/15/23 09/15/23 Unknown release 24 hr midodrine 10 mg tablet 20 mg PO TID 09/15/23 09/15/23 Unknown nystatin 100,000 unit/mL oral 5 ml PO QID 09/15/23 09/15/23 Unknown suspension ondansetron HCl 8 mg tablet 8 mg PO TID PRN Nausea And Vomiting 09/15/23 09/15/23 Unknown oxycodone 5 mg tablet 5 mg PO Q4H PRN Pain 09/15/23 09/15/23 Unknown pantoprazole 20 mg tablet,delayed 20 mg PO DAILY 09/15/23 09/15/23 Unknown release potassium chloride 10 mEq 10 meq PO DAILY 09/15/23 09/15/23 Unknown tablet,extended release tenofovir alafenamide 25 mg tablet 25 mg PO DAILY 09/15/23 09/15/23 Unknown (Vemlidy) torsemide 20 mg tablet 20 mg PO DAILY 09/15/23 09/15/23 Unknown warfarin 2.5 mg tablet 1.25 mg PO DAILY 09/15/23 09/15/23 Unknown Active Medications Generic Name Dose Route Start Last Admin Trade Name Freq PRN Reason Stop Dose Admin Acyclovir 400 mg 09/15/23 09:30 09/17/23 07:16 Acyclovir 400 Mg Tab PO 10/15/23 09:29 400 mg DAILY JOSE Administration Dapsone 25 mg 09/15/23 10:00 09/17/23 07:16 Dapsone 25 Mg Tab PO 10/15/23 09:59 25 mg DAILY JOSE Administration Duloxetine HCl 40 mg 09/15/23 09:30 09/17/23 07:16 Duloxetine Hcl 20 Mg Cap PO 10/15/23 09:29 40 mg DAILY JOSE Administration Finasteride 5 mg 09/15/23 09:30 09/17/23 07:16 Finasteride 5 Mg Tab PO 10/15/23 09:29 5 mg DAILY JOSE Administration Folic Acid 400 mcg 09/15/23 09:30 09/17/23 07:16 Folic Acid 400 Mcg Tab PO 10/15/23 09:29 400 mcg DAILY JOSE Administration Ceftriaxone Sodium 2,000 mg/ 50 mls @ 100 mls/hr 09/16/23 06:00 09/17/23 06:13 Dextrose IV 09/26/23 05:59 Infused Q24H OJSE Infusion Protocol Prochlorperazine 5 mg/ Syringe 5 mls @ 5 mls/min 09/15/23 19:12 09/15/23 20:58 IV 10/15/23 19:11 5 mls/min Q6H PRN Administration Nausea And Vomiting Insulin Aspart 0 units 09/15/23 09:11 09/17/23 12:34 Insulin Aspart Per Unit Charge SC 10/15/23 09:10 Not Given ACHS JOSE Insulin Glargine 5 units 09/15/23 09:11 09/17/23 08:10 Lantus Per Unit Charge SQ 10/15/23 09:10 5 units DAILY JOSE Administration Levothyroxine Sodium 50 mcg 09/15/23 09:30 09/17/23 05:37 Levothyroxine Sodium 50 Mcg Tablet PO 10/15/23 09:29 50 mcg DAILYBB JOSE Administration Magnesium Chloride 64 mg 09/15/23 09:30 09/17/23 07:16 Magnesium Chloride W/Calcium 64mg Delayed Rel Tab PO 10/15/23 09:29 64 mg BID JOSE Administration Miscellaneous 1 each 09/15/23 16:00 09/17/23 12:34 Order Awaiting Action [Icosapent Ethyl 1 Gram Capsule)] N/A 10/15/23 15:59 Not Given QS JOSE Miscellaneous 1 each 09/15/23 16:00 09/17/23 12:34 Order Awaiting Action [Tenofovir Alafenamide [Vemlidy] 25 Mg Tablet] N/A 10/15/23 15:59 Not Given QS JOSE Miscellaneous 1 each 09/16/23 16:30 09/17/23 12:34 Continuous Glucose Monitor N/A 10/16/23 16:29 Not Given ACHS JOSE Nystatin 5 ml 09/15/23 09:30 09/17/23 12:33 Nystatin Susp 500,000 U/5 Ml Udc PO 09/25/23 09:29 Not Given QID JOSE Ondansetron HCl 4 mg 09/15/23 09:11 09/15/23 15:59 Ondansetron Inj 2 Mg/Ml 2 Ml Vial IV 10/15/23 09:10 4 mg Q6H PRN Administration Nausea Pantoprazole Sodium 40 mg 09/16/23 09:00 09/17/23 07:16 Pantoprazole 40 Mg Tab PO 10/15/23 09:29 40 mg DAILY JOSE Administration Torsemide 20 mg 09/17/23 07:20 09/17/23 08:10 Torsemide 10 Mg Tab PO 02/05/24 07:19 20 mg QAM JOSE Administration Vitamin D 2,000 units 09/15/23 09:30 09/17/23 07:16 Cholecalciferol 1,000 Units 25 Mcg Tab PO 10/15/23 09:29 2,000 units DAILY JOSE Administration Warfarin Sodium 1.25 mg 09/15/23 16:00 09/16/23 16:14 Warfarin Sod 1.25 Mg Tab PO 10/15/23 15:59 1.25 mg TODAY@1600 JOSE Administration
[2023-09-17 07:39] LABS: BUN Creatinine Ratio 8.3 (10-20); Calcium 8.4 mg/dl (8.6-10.3); Creatinine Clr Calc Pharmacy 62.6 ml/min; Est GFR (African American) 70.9 ml/min; Est GFR (Non-African American) 61.2 ml/min; Magnesium 1.8 mg/dl (1.7-2.4); Phosphorus 2.8 mg/dl (2.5-4.9); Potassium 3.7 mmol/L (3.5-5.1)
[2023-09-17 07:52] LABS: INR 2.9 (0.9-1.1); Prothrombin Time 29.4 Seconds (9.0-12.0)
[2023-09-17] MEDS: LANTUS PER UNIT CHARGE SQ SCH (08:10)
[2023-09-17] MEDS: TORSEMIDE 10 MG TAB PO SCH (08:10)
[2023-09-17] MEDS ORDERED: HEPARIN 100 UNIT/ML 5ML FLUSH FLUSH PRN (08:36)
[2023-09-17] MEDS ORDERED: WARFARIN SOD 1 MG TAB PO SCH (16:00)
[2023-09-17] MEDS ORDERED: traZODone HCL 50 MG TAB PO ONE (19:36)
--- NOTE | 2023-09-18 04:22 | CT Scan Report ---
Exam(s): CT HEAD Without Contrast EXAM: CT Head Without Intravenous Contrast CLINICAL HISTORY: Fall. TECHNIQUE: Axial computed tomography images of the head/brain without intravenous contrast. CTDI is 36.43 mGy and DLP is 625.8 mGy-cm. Automated exposure control was utilized for the study. A dose lowering technique was utilized adhering to the principles of ALARA. COMPARISON: CT head 06/20/2023 FINDINGS: Brain: No intracranial hemorrhage, mass-effect or midline shift. No abnormal extra axial fluid. No evidence of acute infarct. Mild periventricular white matter hypodensities are most consistent with chronic microangiopathy. Ventricles: Unremarkable. No ventriculomegaly. Bones/joints: Unremarkable. No acute fracture. Soft tissues: Unremarkable. Sinuses: Unremarkable as visualized. No acute sinusitis. Mastoid air cells: Unremarkable as visualized. No mastoid effusion. IMPRESSION: No acute intracranial finding. Electronically signed by: Dayami Ledbetter MD 09/18/23 04:21 AM
[2023-09-18] MEDS: LEVOTHYROXINE SODIUM 50 MCG TABLET PO SCH (05:27)
[2023-09-18] MEDS: ACETAMINOPHEN 325 MG TAB PO PRN ×2 (05:27→21:08)
[2023-09-18] MEDS: MIDODRINE HCL 10 MG TAB PO PRN ×3 (05:28→23:13)
[2023-09-18] MEDS: cefTRIAXone SODIUM 2,000 MG in DEXTROSE 5 % MINI-B 50 ML IV SCH (05:28)
[2023-09-18 06:16] LABS: INR 2.8 (0.9-1.1); Prothrombin Time 28.8 Seconds (9.0-12.0)
--- NOTE | 2023-09-18 06:33 | Hospitalist Progress Note ---
Date of Service September 18, 2023 Assessment & Plan (1) Salmonella enteritis: Plan: Mr. Ochoa is a 53-year-old male with past medical history significant for type 2 diabetes, hyperlipidemia, obstructive sleep apnea, paroxysmal atrial fibrillation, cardiac amyloidosis, multiple myeloma without remission, currently on chemo, nonobstrutive CAD, chronic heart failure with preserved ejection fraction, chronic kidney disease stage III, congenital solitary right kidney, BPH, peripheral neuropathic pain, chemotherapy-induced neuropathy, anxiety, presents with diarrhea and hypotension and electrolyte abnormalities. Patient with Salmonella Enteritis. He is doing much better at this time on IV CTX and now is reporting formed stool. Susceptibilities are pending from send out lab, however, patient eager to discharge and clinically improving. Currently, Case management is coordinating appointments with infusion clinic for daily CTX at this time. Patient mentions important CAR-T appointment coming up on Tuesday and would like to be ready for this appointment--including coordinating with infusion center timing of Fridays dose. He is being managed for the following: #Acute dehydration #Gastroenteritis 2/2 Diarrhea #Recurrent Salmonella infection Still with liquid stool, but decreased frequency since presentation ID evaluated 08/10, enrrique reckenny planned 2-week course of Cipro 08/10 --> to Bactrim 08/12 [due to prolonged QTc] completed course 08/24 -Continue probiotics -Continue CTX IV -blood cultures NGTD -susceptibilities pending for salmonella -HIV test in am with patient consent #Paroxysmal Atrial Fibrillation #supratherapeutic INR: On Coumadin. Was on amiodarone few months back per patient. Follow PT/INR - initially coumadin on hold due to elevated pt/inr. might need temporary dose reduction of coumadin while on antibiotic. LICSW coumadin dose 1.25 mg daily per patient. Currently NSR. 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 -Last treatment with Darzalecx Faspro on 07/25, Xgeva held 2/2 low phos, cytoxan held per request -Continue Dapsone, Acyclovir, and Tenovir #Diabetes: Hold home metformin 1000mg daily SSI ACHS, lantus 5U daily Liberalize diet 2/2 poor po intake #Nonobstructive CAD s/p cath 2017 #HLD -Can resume repatha upon discharge -Resume vascepa upon discharge -Did not tolerate BB previously #Ambulatory dysfunction, amiodarone use v MSK #Lower extremity weakness PT/OT #Orthostatic hypotension: On midodrine as needed #Hypothyroidism: TSH 2.22 -Continue Synthyroid #BPH s/p urolift Follows urology OP Continue finasteride #GERD: Protonix #Obstructive sleep apnea on CPAP nightly #CKD stage III/Solitary kidney: Cr now better than his baseline. DVT PX on Coumadin. Disposition: Tele floor. PT/OT Full code request to call her if any change in medical condition. 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 Ct head negative, small lac on scalp buried in hair line, small skin tear on left arm. patient states that he feels better over all and is excited that he has a formed bowel movement, rather than diarrhea. Patient wishing to go home at this time. Discussed overnight event and he notes his history with orthostasis and he states he "jumped from bed to pee and then was out." He denies any further episodes of syncope or dizziness. He states he feels better than he has in sometime. He denies headache, vision changes, chest pain, or other acute symptoms at this time. Physical Exam Constitutional: WD/WN, vitals as above Respiratory: normal respiratory effort, lungs clear to auscultation Cardiovascular: RRR, no murmur, no edema Gastrointestinal (Abdomen): normal bowel sounds, soft, nontender, no hepatosplenomegaly Skin: small, nonbleeding laceration on left scalp buried in hair, no active oozing skin tear on left forearm with bandage in place Results & Data Results & Data Vital Signs (Past 12 Hours) Vital Signs Temp Pulse Pulse Resp BP BP Pulse Ox 09/18/23 05:24 98/68 L 09/18/23 02:40 19 09/18/23 02:25 37.0 C 82 18 102/63 95 09/18/23 01:18 36.9 C 95 H 12 95/62 L 95 09/17/23 23:44 80 09/17/23 22:22 36.9 C 80 18 119/69 96 09/17/23 22:03 83 21 96 09/17/23 19:19 37.1 C 88 18 113/75 96 O2 Del Method O2 Flow Rate 09/18/23 05:24 09/18/23 02:40 2 09/18/23 02:25 Room Air 09/18/23 01:18 Room Air 09/17/23 23:44 09/17/23 22:22 CPAP 09/17/23 22:03 2 09/17/23 19:19 Room Air Diagnostic Findings Head CT 09/18/23 01:26 Exam(s): CT HEAD Without Contrast EXAM: CT Head Without Intravenous Contrast CLINICAL HISTORY: Fall. TECHNIQUE: Axial computed tomography images of the head/brain without intravenous contrast. CTDI is 36.43 mGy and DLP is 625.8 mGy-cm. Automated exposure control was utilized for the study. A dose lowering technique was utilized adhering to the principles of ALARA. COMPARISON: CT head 06/20/2023 FINDINGS: Brain: No intracranial hemorrhage, mass-effect or midline shift. No abnormal extra axial fluid. No evidence of acute infarct. Mild periventricular white matter hypodensities are most consistent with chronic microangiopathy. Ventricles: Unremarkable. No ventriculomegaly. Bones/joints: Unremarkable. No acute fracture. Soft tissues: Unremarkable. Sinuses: Unremarkable as visualized. No acute sinusitis. Mastoid air cells: Unremarkable as visualized. No mastoid effusion. IMPRESSION: No acute intracranial finding. Electronically signed by: Dayami Lebdetter MD 09/18/23 04:21 AM Medications Administered Home Medications Medication Instructions Recorded Confirmed Last Taken acyclovir 400 mg tablet 400 mg PO DAILY 09/15/23 09/15/23 Unknown albuterol 90 mcg/actuation aerosol 2 mcg inhalation Q4H PRN Shortness 09/15/23 09/15/23 Unknown inhaler Of Breath Or Wheezing cholecalciferol (vitamin D3) 50 2,000 unit PO DAILY 09/15/23 09/15/23 Unknown mcg (2,000 unit) capsule (Vitamin D3) dapsone 25 mg tablet 25 mg PO DAILY 09/15/23 09/15/23 Unknown dexamethasone 4 mg tablet 20 mg PO UD 09/15/23 09/15/23 Unknown duloxetine 20 mg capsule,delayed 40 mg PO DAILY 09/15/23 09/15/23 Unknown release evolocumab 140 mg/mL subcutaneous 140 mg subcut UD 09/15/23 09/15/23 Unknown pen injector (Sherry Doran) finasteride 5 mg tablet 5 mg PO DAILY 09/15/23 09/15/23 Unknown folic acid 400 mcg tablet 400 mcg PO DAILY 09/15/23 09/15/23 Unknown icosapent ethyl 1 gram capsule 2 g PO BID 09/15/23 09/15/23 Unknown insulin glargine 100 unit/mL (3 10 unit subcut DAILY 09/15/23 09/15/23 Unknown mL) subcutaneous pen (Lantus Solostar U-100 Insulin) levothyroxine 50 mcg tablet 50 mcg PO DAILY 09/15/23 09/15/23 Unknown magnesium chloride 64 mg 64 mg PO BID 09/15/23 09/15/23 Unknown (magnesium chloride) tablet,delayed release (Mag 64) metformin 500 mg tablet,extended 1,000 mg PO DAILY 09/15/23 09/15/23 Unknown release 24 hr midodrine 10 mg tablet 20 mg PO TID 09/15/23 09/15/23 Unknown nystatin 100,000 unit/mL oral 5 ml PO QID 09/15/23 09/15/23 Unknown suspension ondansetron HCl 8 mg tablet 8 mg PO TID PRN Nausea And Vomiting 09/15/23 09/15/23 Unknown oxycodone 5 mg tablet 5 mg PO Q4H PRN Pain 09/15/23 09/15/23 Unknown pantoprazole 20 mg tablet,delayed 20 mg PO DAILY 09/15/23 09/15/23 Unknown release potassium chloride 10 mEq 10 meq PO DAILY 09/15/23 09/15/23 Unknown tablet,extended release tenofovir alafenamide 25 mg tablet 25 mg PO DAILY 09/15/23 09/15/23 Unknown (Vemlidy) torsemide 20 mg tablet 20 mg PO DAILY 09/15/23 09/15/23 Unknown warfarin 2.5 mg tablet 1.25 mg PO DAILY 09/15/23 09/15/23 Unknown Active Medications Generic Name Dose Route Start Last Admin Trade Name Juan PRN Reason Stop Dose Admin Acetaminophen 650 mg 09/18/23 05:16 09/18/23 05:27 Acetaminophen 325 Mg Tab PO 10/18/23 05:15 650 mg Q6H PRN Administration Pain or Fever Acyclovir 400 mg 09/15/23 09:30 09/18/23 08:01 Acyclovir 400 Mg Tab PO 10/15/23 09:29 400 mg DAILY JOSE Administration Dapsone 25 mg 09/15/23 10:00 09/18/23 08:03 Dapsone 25 Mg Tab PO 10/15/23 09:59 25 mg DAILY JOSE Administration Duloxetine HCl 40 mg 09/15/23 09:30 09/18/23 08:02 Duloxetine Hcl 20 Mg Cap PO 10/15/23 09:29 40 mg DAILY JOSE Administration Finasteride 5 mg 09/15/23 09:30 09/18/23 08:02 Finasteride 5 Mg Tab PO 10/15/23 09:29 5 mg DAILY JOSE Administration Folic Acid 400 mcg 09/15/23 09:30 09/18/23 08:02 Folic Acid 400 Mcg Tab PO 10/15/23 09:29 400 mcg DAILY JOSE Administration Ceftriaxone Sodium 2,000 mg/ 50 mls @ 100 mls/hr 09/16/23 06:00 09/18/23 06:07 Dextrose IV 09/26/23 05:59 Infused Q24H JOSE Infusion Protocol Prochlorperazine 5 mg/ Syringe 5 mls @ 5 mls/min 09/15/23 19:12 09/15/23 20:58 IV 10/15/23 19:11 5 mls/min Q6H PRN Administration Nausea And Vomiting Insulin Aspart 0 units 09/15/23 09:11 09/18/23 12:43 Insulin Aspart Per Unit Charge SC 10/15/23 09:10 6 units ACHS JOSE Administration Insulin Glargine 5 units 09/15/23 09:11 09/18/23 08:10 Lantus Per Unit Charge SQ 10/15/23 09:10 5 units DAILY JOSE Administration Levothyroxine Sodium 50 mcg 09/15/23 09:30 09/18/23 05:27 Levothyroxine Sodium 50 Mcg Tablet PO 10/15/23 09:29 50 mcg DAILYBB JOSE Administration Magnesium Chloride 64 mg 09/15/23 09:30 09/18/23 08:03 Magnesium Chloride W/Calcium 64mg Delayed Rel Tab PO 10/15/23 09:29 64 mg BID JOSE Administration Midodrine 20 mg 09/15/23 19:12 09/18/23 12:16 Midodrine Hcl 10 Mg Tab PO 10/15/23 11:59 20 mg TID@0800,1200,1700 PRN Administration low pressure sbp less than 105 Miscellaneous 1 each 09/15/23 16:00 09/18/23 07:59 Order Awaiting Action [Icosapent Ethyl 1 Gram Capsule)] N/A 10/15/23 15:59 Not Given QS JOSE Miscellaneous 1 each 09/15/23 16:00 09/18/23 08:00 Order Awaiting Action [Tenofovir Alafenamide [Vemlidy] 25 Mg Tablet] N/A 10/15/23 15:59 Not Given QS JOSE Miscellaneous 1 each 09/16/23 16:30 09/18/23 11:49 Continuous Glucose Monitor N/A 10/16/23 16:29 1 each ACHS JOSE Administration Nystatin 5 ml 09/15/23 09:30 09/18/23 11:51 Nystatin Susp 500,000 U/5 Ml Udc PO 09/25/23 09:29 Not Given QID JOSE Ondansetron HCl 4 mg 09/15/23 09:11 09/15/23 15:59 Ondansetron Inj 2 Mg/Ml 2 Ml Vial IV 10/15/23 09:10 4 mg Q6H PRN Administration Nausea Pantoprazole Sodium 40 mg 09/16/23 09:00 09/18/23 08:02 Pantoprazole 40 Mg Tab PO 10/15/23 09:29 40 mg DAILY JOSE Administration Torsemide 20 mg 09/17/23 07:20 09/18/23 08:03 Torsemide 10 Mg Tab PO 10/17/23 07:19 20 mg QAM JOSE Administration Vitamin D 2,000 units 09/15/23 09:30 09/18/23 08:02 Cholecalciferol 1,000 Units 25 Mcg Tab PO 10/15/23 09:29 2,000 units DAILY JOSE Administration
[2023-09-18] MEDS: Continuous Glucose Monitor SCH ×4 (07:58→20:25)
[2023-09-18] MEDS: INSULIN ASPART PER UNIT CHARGE SC SCH ×4 (07:59→20:25)
[2023-09-18] MEDS: ACYCLOVIR 400 MG TAB PO SCH (08:01)
[2023-09-18] MEDS: DULoxetine HCL 20 MG CAP PO SCH (08:02)
[2023-09-18] MEDS: FOLIC ACID 400 MCG TAB PO SCH (08:02)
[2023-09-18] MEDS: PANTOprazole 40 MG TAB PO SCH (08:02)
[2023-09-18] MEDS: FINASTERIDE 5 MG TAB PO SCH (08:02)
[2023-09-18] MEDS: CHOLECALCIFEROL 1,000 UNITS 25 MCG TAB PO SCH (08:02)
[2023-09-18] MEDS: TORSEMIDE 10 MG TAB PO SCH (08:03)
[2023-09-18] MEDS: DAPSONE 25 MG TAB PO SCH (08:03)
[2023-09-18] MEDS: MAGNESIUM CHLORIDE W/CALCIUM 64MG DELAYED REL TAB PO SCH ×2 (08:03→20:25)
[2023-09-18] MEDS: NYSTATIN SUSP 500,000 U/5 ML UDC PO SCH ×4 (08:04→20:26)
[2023-09-18] MEDS: LANTUS PER UNIT CHARGE SQ SCH (08:10)
[2023-09-18] MEDS ORDERED: LACTATED RINGER'S 500 ML IV ONE (15:49)
--- NOTE | 2023-09-19 00:17 | Electrocardiogram Report ---
Test Reason : Blood Pressure : / mmHG Vent. Rate : 082 BPM Atrial Rate : 082 BPM P-R Int : 186 ms QRS Dur : 094 ms QT Int : 430 ms P-R-T Axes : 029 063 -64 degrees QTc Int : 502 ms Normal sinus rhythm Low voltage QRS Septal infarct (cited on or before 26-AUG-2023) Prolonged QT Abnormal ECG When compared with ECG of 28-AUG-2023 04:59, Questionable change in initial forces of Septal leads Confirmed by Perico Little ([id number]) on 09/19/2023 12:17:15 AM Referred By: REFERRED SELF Confirmed By:Perico Little
[2023-09-19] MEDS: LEVOTHYROXINE SODIUM 50 MCG TABLET PO SCH (05:21)
[2023-09-19] MEDS: cefTRIAXone SODIUM 2,000 MG in DEXTROSE 5 % MINI-B 50 ML IV SCH (05:22)
[2023-09-19 06:29] LABS: Hematocrit (blood only) 34.5 % (42.0-52.0); Hemoglobin 11.9 g/dl (14.0-18.0); Mean Corpuscular Hemoglobin 32.2 pg (25.0-34.0); Mean Corpuscular Hgb Conc 34.5 g/dL (32.0-36.0); Mean Corpuscular Volume 93.5 fL (80.0-100.0); Platelet Count 358 K/uL (130-400); RDW Coefficient of Variation 15.1 % (11.5-14.5); RDW Standard Deviation 52.3 fL (36.4-46.3); Red Blood Count 3.69 M/uL (4.70-6.10); White Blood Count 5.45 K/ul (4.8-10.8)
[2023-09-19 06:41] LABS: INR 2.5 (0.9-1.1); Prothrombin Time 25.5 Seconds (9.0-12.0)
[2023-09-19 06:42] LABS: BUN Creatinine Ratio 4.5 (10-20); Creatinine Clr Calc Pharmacy 62.6 ml/min; Est GFR (African American) 70.9 ml/min; Est GFR (Non-African American) 61.2 ml/min; Magnesium 1.4 mg/dl (1.7-2.4); Potassium 3.3 mmol/L (3.5-5.1)
[2023-09-19] MEDS: Continuous Glucose Monitor SCH (08:37)
[2023-09-19] MEDS: INSULIN ASPART PER UNIT CHARGE SC SCH (08:38)
[2023-09-19] MEDS: NYSTATIN SUSP 500,000 U/5 ML UDC PO SCH (08:38)
[2023-09-19] MEDS: DAPSONE 25 MG TAB PO SCH (08:40)
[2023-09-19] MEDS: DULoxetine HCL 20 MG CAP PO SCH (08:40)
[2023-09-19] MEDS: LANTUS PER UNIT CHARGE SQ SCH (08:40)
[2023-09-19] MEDS: MAGNESIUM CHLORIDE W/CALCIUM 64MG DELAYED REL TAB PO SCH (08:41)
[2023-09-19] MEDS: FINASTERIDE 5 MG TAB PO SCH (08:41)
[2023-09-19] MEDS: TORSEMIDE 10 MG TAB PO SCH (08:41)
[2023-09-19] MEDS: CHOLECALCIFEROL 1,000 UNITS 25 MCG TAB PO SCH (08:41)
[2023-09-19] MEDS: ACYCLOVIR 400 MG TAB PO SCH (08:42)
[2023-09-19] MEDS: FOLIC ACID 400 MCG TAB PO SCH (08:42)
[2023-09-19] MEDS: PANTOprazole 40 MG TAB PO SCH (08:42)
[2023-09-19] MEDS ORDERED: POTASSIUM CHLORIDE CRTAB 20 MEQ TABCR PO STA (09:13)
[2023-09-19] MEDS ORDERED: MAGNESIUM SULFATE / D5W 1 GM/100 ML BAG IV ONE (09:15)
--- NOTE | 2023-09-19 09:41 | Discharge Summary ---
Discharge Summary Date of Service September 19, 2023 Notes For Next Care Provider Salmonella susceptibilities sent to [facility], pending Requested discharge given clinical improvement on CTX and multiple appointments for MM treatment/CAR-T eval Medication Changes From Visit Increased Potassium to 20meq daily Ceftriaxone IV 2g q24 hours EOT 10/13/2023 Admission HPI Per Admitting Provider 53-year-old male with past med history significant for type 2 diabetes, hyperlipidemia, obstructive sleep apnea, paroxysmal atrial fibrillation, cardiac amyloidosis, chronic heart failure with preserved ejection fraction, nonocclusive coronary disease, CKD stage III, congenital solitary right kidney, BPH, peripheral neuropathic pain, chemotherapy-induced neuropathy, degeneration of lumbosacral sacral disc, multiple myeloma without remission, statin intolerance comes because of diarrhea. Patient was admitted last week of July with diarrhea and electrolyte abnormalities and the stool studies showed Salmonella. Initially treated with fluoroquinolones but had prolonged QT so was discharged on Bactrim. Again admitted in August 26, 2023 with hypotension and ARSENIO. His midodrine was increased to 20 mg 3 times daily. He did okay and was discharged on August 28. Since a day prior to new year patient developed diarrhea. Initially it was mild. But progressively got worse. Outpatient stool studies again showing Salmonella. Last night he had several episodes of loose stools about 13 times. Patient somewhat restless. in the room. Patient denies any headache. No chest pain. No shortness of breath. No cough. No fevers. Saturating okay. Appetite is down. Currently blood pressure is okay. Past medical history. As mentioned above Past surgical history. Colonoscopy. Cystourethroscopy with plans prostatic implant. EGD. EGD with endoscopic ultrasound. S/p autologous stem cell transplantation 2014. Bilateral cataract surgery. Vasectomy. Social history. . No smoking. Alcohol rarely. No drug use. Family history. No family history on file. Admission Exam Per Admitting Provider General- somewhat restless Head- atraumatic Eyes- PERRL. ENT- oropharynx clear Neck- supple, no JVD. Lungs- clear to auscultation no wheezing or crackles. Heart- regular rhythm; no murmur, no gallop. Abdomen- normal bowel sounds, soft, nontender, no distension Extremities- no pretibial edema, no erythema seen Neuro- alert, oriented x 3; PERRL, no facial palsy; no dysarthria; moves extremities. Skin- warm & dry Principal Dx & Hospital Course #1 = Principal Diagnosis (1) Salmonella enteritis: Mr. Ochoa is a 53-year-old male with past medical history significant for type 2 diabetes, hyperlipidemia, obstructive sleep apnea, paroxysmal atrial fibr illation, cardiac amyloidosis, multiple myeloma without remission, currently on chemo, nonobstrutive CAD, chronic heart failure with preserved ejection fraction, chronic kidney disease stage III, congenital solitary right kidney, BPH, peripheral neuropathic pain, chemotherapy-induced neuropathy, anxiety, presents with diarrhea and hypotension and electrolyte abnormalities. Patient with Salmonella Enteritis. He was admitted with up to 10-20 watery stools a day. He is doing much better at this time on IV CTX and now is reporting formed stool. Susceptibilities are pending from send out lab, however, patient eager to discharge and clinically improving as he has multiple evaluations/appointments for CAR-T Infusions coordinated at infusion center near home has home health would incur 200$/day cost. Patient to discharge with 4 weeks IV abx and follow up with ID as an outpatient. Blood cultures and other infectious work up negative. Course complicated by fall given orthostasis. Resolved with resumption of midodrine and counseling patient on slow standing. Patient mentions important CAR-T appointment coming up on Tuesday and would like to be ready for this appointment--including coordinating with infusion center timing of Fridays dose. He was managed for the following: #Acute dehydration #Gastroenteritis 2/2 Diarrhea #Recurrent Salmonella infection Still with liquid stool, but decreased frequency since presentation ID evaluated 08/10, appreciate recs planned 2-week course of Cipro 08/10 --> to Bactrim 08/12 [due to prolonged QTc] completed course 08/24 -Continue probiotics -Continue CTX IV EOT 10/13/2023 -blood cultures NGTD -susceptibilities pending for salmonella -HIV test pending #Paroxysmal Atrial Fibrillation #supratherapeutic INR: On Coumadin. Was on amiodarone few months back per patient. Follow PT/INR - initially coumadin on hold due to elevated pt/inr. might need temporary dose reduction of coumadin while on antibiotic. ARC CUTTER PLASMA ARC coumadin dose 1.25 mg daily per patient. Currently NSR. 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 -Last treatment with Darzalecx Faspro on 07/25, Xgeva held 2/2 low phos, cytoxan held per request -Continue Dapsone, Acyclovir, and Tenovir #Diabetes: Hold home metformin 1000mg daily Resume home regimen #Nonobstructive CAD s/p cath 2017 #HLD -Can resume repatha upon discharge -Resume vascepa upon discharge -Did not tolerate BB previously #Ambulatory dysfunction, amiodarone use v MSK #Lower extremity weakness PT/OT, return home #Orthostatic hypotension: On midodrine as needed #Hypothyroidism: TSH 2.22 -Continue Synthyroid #BPH s/p urolift Follows urology OP Continue finasteride #GERD: Protonix #Obstructive sleep apnea on CPAP nightly #CKD stage III/Solitary kidney: Cr now better than his baseline. On day of discharge, patient denies any new concerns and reports over all improvement in appetite and tolerance for liquids. Increased home potassium 20meq, recieved IV mag and PO K prior to dispo. Discharge Exam Constitutional WD/WN, vitals as above Cardiovascular RRR, no murmur, no edema Gastrointestinal (Abdomen) normal bowel sounds, soft, nontender, no hepatosplenomegaly Updated Medication List Medication Instructions Recorded Confirmed Type acyclovir 400 mg tablet 400 mg PO DAILY 09/15/23 09/15/23 History albuterol 90 mcg/actuation aerosol 2 mcg inhalation Q4H PRN Shortness 09/15/23 09/15/23 History inhaler Of Breath Or Wheezing cholecalciferol (vitamin D3) 50 2,000 unit PO DAILY 09/15/23 09/15/23 History mcg (2,000 unit) capsule (Vitamin D3) dapsone 25 mg tablet 25 mg PO DAILY 09/15/23 09/15/23 History dexamethasone 4 mg tablet 20 mg PO UD 09/15/23 09/15/23 History duloxetine 20 mg capsule,delayed 40 mg PO DAILY 09/15/23 09/15/23 History release evolocumab 140 mg/mL subcutaneous 140 mg subcut UD 09/15/23 09/15/23 History pen injector (Sherry Doran) finasteride 5 mg tablet 5 mg PO DAILY 09/15/23 09/15/23 History folic acid 400 mcg tablet 400 mcg PO DAILY 09/15/23 09/15/23 History icosapent ethyl 1 gram capsule 2 g PO BID 09/15/23 09/15/23 History insulin glargine 100 unit/mL (3 10 unit subcut DAILY 09/15/23 09/15/23 History mL) subcutaneous pen (Lantus Solostar U-100 Insulin) levothyroxine 50 mcg tablet 50 mcg PO DAILY 09/15/23 09/15/23 History magnesium chloride 64 mg 64 mg PO BID 09/15/23 09/15/23 History (magnesium chloride) tablet,delayed release (Mag 64) metformin 500 mg tablet,extended 1,000 mg PO DAILY 09/15/23 09/15/23 History release 24 hr midodrine 10 mg tablet 20 mg PO TID 09/15/23 09/15/23 History nystatin 100,000 unit/mL oral 5 ml PO QID 09/15/23 09/15/23 History suspension ondansetron HCl 8 mg tablet 8 mg PO TID PRN Nausea And Vomiting 09/15/23 09/15/23 History oxycodone 5 mg tablet 5 mg PO Q4H PRN Pain 09/15/23 09/15/23 History pantoprazole 20 mg tablet,delayed 20 mg PO DAILY 09/15/23 09/15/23 History release tenofovir alafenamide 25 mg tablet 25 mg PO DAILY 09/15/23 09/15/23 History (Vemlidy) torsemide 20 mg tablet 20 mg PO DAILY 09/15/23 09/15/23 History potassium chloride 10 mEq 20 meq (2 x 10 mEq) PO DAILY #60 09/19/23 Rx tablet,extended release tabs warfarin 2.5 mg tablet 1.25 mg (1/2 x 2.5 mg) PO DAILY 09/19/23 09/15/23 Rx #30 tabs Hospital Stay Data Consultations 09/15/23 05:53 ED Decision to Admit Stat 09/15/23 09:11 Consult Infectious Diseases Routine Diagnostic Imagining Performed 09/18/23 01:26 CT head/brain wo con Stat Pending Results Patient Have Any Pending Studies at Discharge: No Discharge Instructions Given to Patient (Per Discharging Provider) You were admitted for concerns of diarrhea and found to have recurrent salmonella infection. You were evaluated by infectious disease who recommends 4 weeks of IV ceftriaxone therapy and follow up. Please continue all other medications as previously prescribed. Your potassium supplementation was increased to 20meq daily. Continue your magnesium supplementation twice daily. Please continue your home warfarin 1.25mg nightly and follow up on Tuesday for INR and dose adjustment with the Anticoagulation clinic. Total Time Total Time Spent Total Time Spent (In Minutes): 45
== END 2023-09-19 13:16 | disposition home or self-care (01) | DRG 372 ==
LOC: ED 04:55 → SUATTDRO 07:02 → EDINP 07:02 → 2N 09:10

== ENCOUNTER 2023-12-06 15:32 | Inpatient (IN) ==
--- NOTE | 2023-12-06 16:53 | XRay Report ---
SINGLE VIEW CHEST CLINICAL HISTORY: Atypical chest pain FINDINGS: A PA chest radiograph is compared to study dated 08/26/2023. Correlation is made with chest CT dated 07/24/2022. A right internal jugular central venous infusion port is unchanged in position. The heart is mildly enlarged. There is mild pulmonary vascular congestion. There are layering pleura l effusions with dependent consolidation. No pneumothorax is seen. The skeletal structures are osteop enic. The bony thorax is grossly intact. IMPRESSION: 1. Cardiomegaly with mild pulmonary vascular congestion. 2. Layering pleural effusions with dependent consolidation. Radiographic follow-up to resolution is r ecommended. ACT 112: Negative or not required by law. Electronically signed by: Daniel Alcantara M.D. 12/06/2023 4:52 PM
[2023-12-06 17:20] LABS: Adenovirus PCR Not Detected (NotDetected); Bordetella parapertussis PCR Not Detected (NotDetected); Bordetella pertussis PCR Not Detected (NotDetected); Chlamydia pneumoniae PCR Not Detected (NotDetected); Coronavirus 229E PCR Not Detected (NotDetected); Coronavirus CoV-2 (COVID19)PCR Not Detected (NotDetected); Coronavirus HKU1 PCR Not Detected (NotDetected); Coronavirus NL63 PCR Not Detected (NotDetected); Coronavirus OC43PCR Not Detected (NotDetected); Human Metapneumovirus PCR Not Detected (NotDetected); Influenza A PCR Not Detected (NotDetected); Influenza B PCR Not Detected (NotDetected); Mycoplasma pneumoniae PCR Not Detected (NotDetected); Parainfluenza Virus 1 PCR Not Detected (NotDetected); Parainfluenza Virus 2 PCR Not Detected (NotDetected); Parainfluenza Virus 3 PCR Not Detected (NotDetected); Parainfluenza Virus 4 PCR Not Detected (NotDetected); Respiratory Syncytial VirusPCR Not Detected (NotDetected); Rhinovirus/Enterovirus PCR Not Detected (NotDetected)
--- NOTE | 2023-12-06 18:54 | Emergency Department Note ---
Impression & Plan Pleural effusion, bilateral, Weakness, Elevated troponin I level ED Provider Note NAME: MATT WALTON AGE: 53 SEX: M : 1970 ARRIVES VIA: Walk-In INFORMANT: Patient, ED PROVIDER(S): Ulises Bran MD CHIEF COMPLAINT: Weakness MEDICAL DECISION MAKING: IV was established and blood work was obtained.chest x-ray does show cardiomegaly with pulmonary vascular congestion and pleural effusions with dependent consolidation. Pleural effusions are worse from comparison from August 26, 2023. EKG shows normal sinus rhythm with sinus arrhythmia rate of 83, normal intervals, normal axis no ST elevations Q-wave in V2. Troponin is elevated the patient has had chronic elevations in the past. Repeat pending. Upon reassessment with the patient only discussed that given his worsening pleural effusions he may benefit from inpatient treatment but if wanting to do so could discuss close outpatient follow-up. Patient is amenable to inpatient treatment. Patient was ordered some medications for headache. The patient does not meningitic encephalopathic. I did speak with Dr. Tavares and the patient was admitted to the medicine service. I did add a procalcitonin and a CT of the chest to further evaluate the possibility of pneumonia. CT of the chest shows bilateral pleural effusions no PE. Repeat troponin was without significant change. Discussion w/ other healthcare providers: Dr. Tavares inpatient medicine service Prior /Outside records reviewed: I reviewed a discharge summary from September 2023 Dr. Stahl. Patient with known history of type 2 diabetes hyperlipidemia DEBBY paroxysmal A-fib cardiac amyloid doses chronic heart failure with preserved ejection fraction nonocclusive CAD CKD 3 congenital solitary right kidney BPH chemo-induced neuropathy multiple myeloma who had presented due to concern for diarrhea and Salmonella. Differential diagnosis: Reactive airway disease, pneumonia, pneumothorax, COPD, CHF, ACS, pulmonary embolism, musculoskeletal, GERD as well as other pathologies were considered. Diagnostics, as interpreted by me: ECG: Normal sinus rhythm, rate of 83, normal intervals, normal axis no ST elevations Q-wave noted in V1 and V2. Slight depression with T wave flattening in V6.Patient's Q waves appear to be old and the patient did have some nonspecific ST changes and flattening in lead V6 from comparison September 17, 2023 Cardiac monitoring: An order was placed for continuous cardiac monitoring. The monitor shows a rate of 85 with sinus rhythm. Patient was placed on pulse oximetry Medical decision rules: None Imaging studies: [I informally interpreted the patient's chest x-ray does show bilateral pleural effusions with formal report to follow. HPI: Patient presents due to concern for weakness and fatigue which he states began 2 days prior with some associated rhinorrhea which is since stopped today. Patient does feel some associated sinus pressure but has had no sinus drainage. Patient has had some frontal headache and states that he cannot take a big deep breath. No recent falls or trauma. Patient denies any chest pains. Patient denies any leg swelling. He does have a known history of prior multiple myeloma and does follow with oncology in [place]. The patient does get every 2 week infusions for chemotherapy but does not had it for about 3 weeks as he does have follow-up with [facility]. Patient states that he does have a prior history of pleural effusion and did have a thoracentesis 1 time back in 2013. Patient states that he used to be on Lasix but essentially used it intermittently did use it about a week ago for some similar symptoms and also used yesterday and believes he took 20 mg but without significant improvement in symptoms. Patient denies any leg swelling or calf pain. PAST MEDICAL HISTORY: See Below PAST SURGICAL HISTORY: See Below SOCIAL HISTORY: See Below HOME MEDICATIONS: See Below ALLERGIES: See Below VITALS: See Below PHYSICAL EXAMINATION: GENERAL: NAD, non-toxic. EYE EXAM: Normal conjunctiva. PERRL, no anisocoria and EOM's grossly intact w/o pain. OROPHARYNX: Moist mucus membranes, grossly normal dentition. NECK: Trachea midline, no stridor. Supple, no nuchal rigidity, no adenopathy, non-tender. No signs of meningismus. FROM of the neck with good chin to chest and neck extension. LUNGS: Clear to auscultation. Normal chest wall mechanics. HEART: NSR, no MRG. ABDOMEN: Abdomen soft, non-tender, no masses, no rebound or guarding. BACK: No CVA TTP. SKIN: No rashes and no bruising. UPPER EXTREMITIES: Upper extremities are grossly normal. LOWER EXTREMITIES: Grossly normal, no edema. NEURO EXAM: A&O x3, cranial nerves II-XII grossly intact, normal speech, moves all 4 extremities. Past Med/Surg History Medical History Nausea & vomiting Diarrhea Acute dehydration Elevated lactic acid level Hypokalemia Salmonella enteritis Cardiac amyloidosis CAD (coronary artery disease) Nonobstructive GERD (gastroesophageal reflux disease) Atrial fibrillation Follows with [facility]/Tim Ruiz PAC Low back problem BPH (benign prostatic hyperplasia) CKD (chronic kidney disease) Follows with [facility]/Dr. 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 Amaral [facility] Surgical History History of surgery vasectomy reversal History of surgery Urolift History of vascular access device Right chest port (type unknown) History of cataract surgery History of cardiac cath Right heart cath (2017) History of colonoscopy History of esophagogastroduodenoscopy (EGD) H/O vasectomy Family History Father No problems noted. Mother No problems noted. Other Adopted Social History Smoking Status: Never smoker Tobacco Type: Cigarettes Second Hand Exposure: No; Do You Dip or Chew Tobacco: No; Hx Alcohol Use: No Hx Substance Use: No Preferred Language: Kenyan Communication Ability: Effective Scholastic Aptitude Test Grader Required: No Beliefs That Will Affect Care: None marital status: marital status details: twice - 3 children in total between the 2 marriages Current Living Situation: Spouse Current Living Situation Comment: lives in [place] current occupational status: disabled current occupation: previously worked at [employer] Feels Safe at Home: Yes Assistive Devices: Cane, CPAP and Glasses Allergies Allergies Allergy/AdvReac Type Severity Reaction Status Date / Time [id number] Reductase AdvReac Intermediate MUSCLE Verified 12/06/23 19:37 Inhibitor PAIN WITH ATORVASTATIN & ZETIA NSAIDS (Non-Steroidal AdvReac Unknown Advised by Verified 12/06/23 19:37 Anti-Inflamma nephrology to avoid d/t CKD Home Meds Home Medications Medication Instructions Recorded Confirmed acyclovir 400 mg tablet 400 mg PO DAILY 09/15/23 12/06/23 cholecalciferol (vitamin D3) 50 6,000 unit PO DAILY 09/15/23 12/06/23 mcg (2,000 unit) capsule (Vitamin D3) dapsone 25 mg tablet 25 mg PO DAILY 09/15/23 12/06/23 dexamethasone 4 mg tablet 20 mg PO DIRECTED 09/15/23 12/06/23 duloxetine 20 mg capsule,delayed 40 mg PO DAILY 09/15/23 12/06/23 release evolocumab 140 mg/mL subcutaneous 140 mg subcut .Q2WKS 09/15/23 12/06/23 pen injector (Sherry Doran) finasteride 5 mg tablet 5 mg PO DAILY 09/15/23 12/06/23 folic acid 400 mcg tablet 400 mcg PO DAILY 09/15/23 12/06/23 icosapent ethyl 1 gram capsule 2 g PO BIDM 09/15/23 12/06/23 levothyroxine 50 mcg tablet 50 mcg PO DAILYBB 09/15/23 12/06/23 magnesium chloride 64 mg 64 mg PO BID 09/15/23 12/06/23 (magnesium chloride) tablet,delayed release (Mag 64) metformin 500 mg tablet,extended 1,000 mg PO DAILY 09/15/23 12/06/23 release 24 hr midodrine 10 mg tablet 20 mg PO TID 09/15/23 12/06/23 ondansetron HCl 8 mg tablet 8 mg PO TID PRN Nausea And Vomiting 09/15/23 12/06/23 oxycodone 5 mg tablet 5 mg PO Q4H PRN Pain 09/15/23 12/06/23 pantoprazole 20 mg tablet,delayed 20 mg PO DAILY 09/15/23 12/06/23 release tenofovir alafenamide 25 mg tablet 25 mg PO DAILY 09/15/23 12/06/23 (Vemlidy) albuterol sulfate 90 mcg/actuation 2 puff inhalation Q6H PRN 12/06/23 12/06/23 aerosol inhaler Shortness Of Breath/COUGH allopurinol 100 mg tablet 100 mg PO DAILY 12/06/23 12/06/23 epinephrine 0.3 mg/0.3 mL 0.3 mg IM DIRECTED PRN SEVERE 12/06/23 12/06/23 injection, auto-injector (EpiPen) ALLERGIC REACTION polyethylene glycol 3350 17 gram 17 g PO DAILY PRN Constipation 12/06/23 12/06/23 oral powder packet (Miralax) prochlorperazine maleate 10 mg 10 mg PO Q6H PRN Nausea 12/06/23 12/06/23 tablet (Compazine) torsemide 10 mg tablet 10 mg PO QAM PRN EDEMA/FLUID 12/06/23 12/06/23 RETENTION warfarin 2.5 mg tablet 1.25 mg PO QPM 12/06/23 12/06/23 Previous Rx's Medication Instructions Recorded potassium chloride 10 mEq 20 meq (2 x 10 mEq) PO DAILY #60 09/19/23 tablet,extended release tabs Results & Data (ED) Vital Signs Vital Signs - 24 hr 12/06/23 16:00 12/06/23 17:32 12/06/23 18:36 Temperature 36.9 C Temperature Source Oral Pulse Rate 86 85 Pulse Rate [Apical] 88 Pulse Rate from SpO2 Sensor 83 Pulse Rhythm Regular Pulse Strength Normal Respiratory Rate 18 15 22 Respiratory Effort / Characteristics Non-Labored Spontaneous Respiratory Depth Normal Respiratory Pattern Regular Blood Pressure 115/81 Blood Pressure [Left Arm] 139/103 H Blood Pressure Mean 92 Blood Pressure Mean [Left Arm] 115 Blood Pressure Position Sitting Pulse Oximetry 97 97 96 Oxygen Delivery Method Room Air Oxygen Flow Rate Sepsis Recent Fever Within 48 Hours No Sepsis New/Unexplained Change in Mental Status No Sepsis Action Taken by Nursing No Action Required 12/06/23 18:50 12/06/23 18:52 12/06/23 19:00 Temperature Temperature Source Pulse Rate 83 85 Pulse Rate [Apical] Pulse Rate from SpO2 Sensor Pulse Rhythm Pulse Strength Respiratory Rate 19 Respiratory Effort / Characteristics Respiratory Depth Respiratory Pattern Blood Pressure Blood Pressure [Left Arm] Blood Pressure Mean Blood Pressure Mean [Left Arm] Blood Pressure Position Pulse Oximetry 98 Oxygen Delivery Method Room Air Oxygen Flow Rate Sepsis Recent Fever Within 48 Hours Sepsis New/Unexplained Change in Mental Status Sepsis Action Taken by Nursing 12/06/23 19:30 12/06/23 19:57 12/06/23 19:57 Temperature Temperature Source Pulse Rate 87 88 Pulse Rate [Apical] Pulse Rate from SpO2 Sensor 92 H Pulse Rhythm Pulse Strength Respiratory Rate 22 20 Respiratory Effort / Characteristics Respiratory Depth Respiratory Pattern Blood Pressure 143/108 H Blood Pressure [Left Arm] Blood Pressure Mean 113 Blood Pressure Mean [Left Arm] Blood Pressure Position Pulse Oximetry 98 Oxygen Delivery Method Oxygen Flow Rate Sepsis Recent Fever Within 48 Hours Sepsis New/Unexplained Change in Mental Status Sepsis Action Taken by Nursing 12/06/23 20:00 12/06/23 20:30 12/06/23 21:00 Temperature Temperature Source Pulse Rate 91 H 85 87 Pulse Rate [Apical] Pulse Rate from SpO2 Sensor 94 H 87 Pulse Rhythm Pulse Strength Respiratory Rate 19 19 19 Respiratory Effort / Characteristics Respiratory Depth Respiratory Pattern Blood Pressure Blood Pressure [Left Arm] Blood Pressure Mean Blood Pressure Mean [Left Arm] Blood Pressure Position Pulse Oximetry 98 96 Oxygen Delivery Method Oxygen Flow Rate Sepsis Recent Fever Within 48 Hours Sepsis New/Unexplained Change in Mental Status Sepsis Action Taken by Nursing 12/06/23 21:30 12/06/23 22:00 12/06/23 22:30 Temperature Temperature Source Pulse Rate 89 83 91 H Pulse Rate [Apical] Pulse Rate from SpO2 Sensor 80 90 Pulse Rhythm Pulse Strength Respiratory Rate 22 18 24 Respiratory Effort / Characteristics Respiratory Depth Respiratory Pattern Blood Pressure Blood Pressure [Left Arm] Blood Pressure Mean Blood Pressure Mean [Left Arm] Blood Pressure Position Pulse Oximetry 94 92 Oxygen Delivery Method Oxygen Flow Rate Sepsis Recent Fever Within 48 Hours Sepsis New/Unexplained Change in Mental Status Sepsis Action Taken by Nursing 12/06/23 22:32 12/06/23 22:32 12/06/23 22:37 Temperature Temperature Source Pulse Rate 87 Pulse Rate [Apical] Pulse Rate from SpO2 Sensor 88 Pulse Rhythm Pulse Strength Respiratory Rate 14 Respiratory Effort / Characteristics Respiratory Depth Respiratory Pattern Blood Pressure 134/94 Blood Pressure [Left Arm] Blood Pressure Mean 103 Blood Pressure Mean [Left Arm] Blood Pressure Position Pulse Oximetry 87 L 95 Oxygen Delivery Method Room Air Nasal Cannula Oxygen Flow Rate 2 Sepsis Recent Fever Within 48 Hours Sepsis New/Unexplained Change in Mental Status Sepsis Action Taken by Nursing 12/06/23 22:49 Temperature Temperature Source Pulse Rate 85 Pulse Rate [Apical] Pulse Rate from SpO2 Sensor Pulse Rhythm Pulse Strength Respiratory Rate Respiratory Effort / Characteristics Respiratory Depth Respiratory Pattern Blood Pressure Blood Pressure [Left Arm] Blood Pressure Mean Blood Pressure Mean [Left Arm] Blood Pressure Position Pulse Oximetry Oxygen Delivery Method Oxygen Flow Rate Sepsis Recent Fever Within 48 Hours Sepsis New/Unexplained Change in Mental Status Sepsis Action Taken by Assisted Medications Current Medication List: was personally reviewed by me Laboratory Data Attestation: I reviewed the patient's lab results. 12/06/23 18:41 12/06/23 18:41 Lab Results 12/06/23 12/06/23 12/06/23 Range/Units 16:06 18:41 21:13 WBC 6.52 (4.8-10.8) K/ul RBC 4.49 L (4.70-6.10) M/uL Hgb 14.1 (14.0-18.0) g/dl Hct 41.1 L (42.0-52.0) % MCV 91.5 (80.0-100.0) fL MCH 31.4 (25.0-34.0) pg MCHC 34.3 (32.0-36.0) g/dL RDW Std Deviation 52.5 H (36.4-46.3) fL RDW Coeff of Tobi 15.7 H (11.5-14.5) % Plt Count 367 (130-400) K/uL MPV 10.4 (9.4-12.4) fL Immature Gran % (Auto) 0.2 % Neut % (Auto) 75.2 % Lymph % (Auto) 8.9 % [place] % (Auto) 12.4 % Eos % (Auto) 2.5 % Baso % (Auto) 0.8 % Neut # (Auto) 4.91 (1.40-6.50) K/uL Lymph # (Auto) 0.58 L (1.20-3.40) K/uL [place] # (Auto) 0.81 H (0.11-0.59) K/uL Eos # (Auto) 0.16 (0.00-0.50) K/uL Baso # (Auto) 0.05 (0.00-0.20) K/uL Immature Gran # (Auto) 0.01 (0.01-0.20) K/uL PT 25.9 H (9.0-12.0) Seconds INR 2.5 H (0.9-1.1) APTT 42 H (21-31) Seconds PTT Ratio 1.5 Sodium 137 (136-145) mmol/L Potassium 4.0 (3.5-5.1) mmol/L Chloride 99 (98-107) mmol/L Carbon Dioxide 31 (21-32) mmol/L Anion Gap 7 (3-11) BUN 15 (6-23) mg/dl Creatinine 1.31 (0.6-1.4) mg/dl Est Cr Clr Drug Dosing 60.0 ml/min Est GFR ( Amer) 71.5 ml/min Est GFR (Non-Af Amer) 61.7 ml/min BUN/Creatinine Ratio 11.5 (10-20) Glucose 95 (70-99(Fasting)) mg/dl Calcium 9.6 (8.6-10.3) mg/dl Total Bilirubin 0.7 (0.2-1.0) mg/dl AST 11 L (13-39) U/L ALT 7 (7-52) U/L Alkaline Phosphatase 106 H (34-104) U/L Troponin I High Sens 45.4 H 48.6 H (0-20) pg/ml Total Protein 5.9 L (6.0-8.3) gm/dl Albumin 3.8 (3.4-5.0) gm/dl Globulin 2.1 L (2.5-4.0) gm/dl Albumin/Globulin Ratio 1.8 (0.9-2) Procalcitonin 0.06 (0-0.5) ng/ml Adenovirus (PCR) Not Detected (NotDetected) B. pertussis DNA (PCR) Not Detected (NotDetected) B.parapertussis DNA PCR Not Detected (NotDetected) C. pneumoniae DNA (PCR) Not Detected (NotDetected) Coronavirus OC43 (PCR) Not Detected (NotDetected) Coronavirus HKU1 (PCR) Not Detected (NotDetected) Coronavirus 229E (PCR) Not Detected (NotDetected) SARS-CoV-2 (PCR) Not Detected (NotDetected) Coronavirus NL63 (PCR) Not Detected (NotDetected) Human Metapneumovir PCR Not Detected (NotDetected) Influenza Type A (PCR) Not Detected (NotDetected) Influenza Type B (PCR) Not Detected (NotDetected) M. pneumoniae (PCR) Not Detected (NotDetected) Parainfluenza 1 (PCR) Not Detected (NotDetected) Parainfluenza 2 (PCR) Not Detected (NotDetected) Parainfluenza 3 (PCR) Not Detected (NotDetected) Parainfluenza 4 (PCR) Not Detected (NotDetected) RSV (PCR) Not Detected (NotDetected) Entero/Rhino (PCR) Not Detected (NotDetected) Administered Medications Discontinued Medications Acetaminophen (Acetaminophen 500 Mg Tab) 1,000 mg PO NOW STA Stop: 12/06/23 20:15 Last Admin: 12/06/23 20:24 Dose: 1,000 mg Documented By: ACC Ioversol (Optiray 320 100ml) 92 ml IV ONCE ONE Stop: 12/06/23 21:17 Last Admin: 12/06/23 21:17 Dose: 92 ml Documented By: Pepe Ondansetron HCl (Ondansetron Inj 2 Mg/Ml 2 Ml Vial) 4 mg IV NOW STA Stop: 12/06/23 20:16 Last Admin: 12/06/23 20:24 Dose: 4 mg Documented By: ACC Imaging Data Radiologist's Impression: Chest X-Ray 12/06/23 16:05 SINGLE VIEW CHEST CLINICAL HISTORY: Atypical chest pain FINDINGS: A PA chest radiograph is compared to study dated 08/26/2023. Correlation is made with chest CT dated 07/24/2022. A right internal jugular central venous infusion port is unchanged in position. The heart is mildly enlarged. There is mild pulmonary vascular congestion. There are layering pleural effusions with dependent consolidation. No pneumothorax is seen. The skeletal structures are osteopenic. The bony thorax is grossly intact. IMPRESSION: 1. Cardiomegaly with mild pulmonary vascular congestion. 2. Layering pleural effusions with dependent consolidation. Radiographic follow- up to resolution is recommended. ACT 112: Negative or not required by law. Electronically signed by: Daniel Alcantara M.D. 12/06/2023 4:[address] 12/06/23 20:33 Exam(s): CT CHEST With Contrast IV Amt: 92 ml optiray 320 EXAM: CT Chest With Intravenous Contrast CLINICAL HISTORY: Reason for exam: eval for PNA, pleural effusions, SOB. TECHNIQUE: Axial computed tomography images of the chest with intravenous contrast. CTDI is 31 mGy and DLP is 627.03 mGy-cm. Automated exposure control was utilized for the study. A dose lowering technique was utilized adhering to the principles of ALARA. CONTRAST: Patient received 92 ml optiray 320 of IV contrast COMPARISON: No relevant prior studies available. FINDINGS: Lungs: Subsegmental atelectasis seen in bilateral lung bases. No mass. Pleural space: Bilateral moderate sized pleural effusions are seen. No pneumothorax. Heart: There is mild cardiomegaly. No significant pericardial effusion. No significant coronary artery calcifications. Ascending aorta caliber measures 3.6 cm in diameter. Bones/joints: Multiple lucent foci seen in the thoracic vertebral bodies, measuring up to 12 mm in diameter.. No dislocation. Soft tissues: Unremarkable. Lymph nodes: Unremarkable. No enlarged lymph nodes. Liver: There is reflux of contrast into the hepatic veins and IVC. Kidneys and ureters: Chronic left renal atrophy. IMPRESSION: 1. Bilateral moderate sized pleural effusions 2. No acute pulmonary embolism 3. Multiple radiolucent foci in the thoracic spine. This can be further assessed on MRI study. Electronically signed by: Christiano Hughes MD 12/06/23 22:10 PM Discharge Plan Visit Data Chief Complaint: Flu Like Symptoms Stated Complaint: FLU SYM, SOB, MAYBE COVID POS ED Provider: Ulises Bran Discharge Problem: Pleural effusion, bilateral, Weakness, Elevated troponin I level Forms Stand Alone Forms: My [facility] Prescriptions Prescriptions: No Action ondansetron HCl 8 mg tablet 8 mg PO TID PRN (Reason: Nausea And Vomiting) folic acid 400 mcg tablet 400 mcg PO DAILY pantoprazole 20 mg tablet,delayed release (DR/EC) 20 mg PO DAILY metformin 500 mg tablet extended release 24 hr 1,000 mg PO DAILY oxycodone 5 mg tablet 5 mg PO Q4H PRN (Reason: Pain) midodrine 10 mg tablet 20 mg PO TID Rx Instructions: at 8am ,12pm and 5pm. duloxetine 20 mg capsule,delayed release(DR/EC) 40 mg PO DAILY cholecalciferol (vitamin D3) [Vitamin D3] 50 mcg (2,000 unit) capsule 6,000 unit PO DAILY Mag 64 64 mg tablet,delayed release (DR/EC) 64 mg PO BID icosapent ethyl 1 gram capsule 2 g PO BIDM Repatha SureClick 140 mg/mL pen injector 140 mg SUBCUT .Q2WKS Rx Instructions: PER PT "HAVEN'T RECEIVED FROM PHARMACY FOR SOME TIME NOW". LAST FILLED 09/14/23. Vemlidy 25 mg tablet 25 mg PO DAILY acyclovir 400 mg Tablet 400 mg PO DAILY levothyroxine 50 mcg tablet 50 mcg PO DAILYBB dexamethasone 4 mg tablet 20 mg PO DIRECTED Rx Instructions: TAKES 2 X MONTH, ON WEEKS THAT HE DOESN'T TAKE CHEMO PER [facility] dapsone 25 mg tablet 25 mg PO DAILY finasteride 5 mg tablet 5 mg PO DAILY potassium chloride 10 mEq tablet extended release 20 meq PO DAILY Qty: 60 0RF polyethylene glycol 3350 [Miralax] 17 gram Powder In Packet 17 g PO DAILY PRN (Reason: Constipation) torsemide 10 mg tablet 10 mg PO QAM PRN (Reason: EDEMA/FLUID RETENTION) prochlorperazine maleate [Compazine] 10 mg Tablet 10 mg PO Q6H PRN (Reason: Nausea) allopurinol 100 mg Tablet 100 mg PO DAILY epinephrine [EpiPen] 0.3 mg/0.3 mL Auto-Injector 0.3 mg IM DIRECTED PRN (Reason: SEVERE ALLERGIC REACTION) albuterol sulfate 90 mcg/actuation Hfa Aerosol Inhaler 2 puff INHALATION Q6H PRN (Reason: Shortness Of Breath/COUGH) warfarin 2.5 mg tablet 1.25 mg PO QPM Referrals Referrals: Jaime Garcia MD [Primary Care Provider] -
[2023-12-06 19:20] LABS: Basophils # (auto) 0.05 K/uL (0.00-0.20); Basophils % (auto) 0.8 %; Eosinophils # (auto) 0.16 K/uL (0.00-0.50); Eosinophils % (auto) 2.5 %; Hematocrit (blood only) 41.1 % (42.0-52.0); Hemoglobin 14.1 g/dl (14.0-18.0); Immature Granulocytes # (auto) 0.01 K/uL (0.01-0.20); Immature Granulocytes % (auto) 0.2 %; Lymphocytes # (auto) 0.58 K/uL (1.20-3.40); Lymphocytes % (auto) 8.9 %; Mean Corpuscular Hemoglobin 31.4 pg (25.0-34.0); Mean Corpuscular Hgb Conc 34.3 g/dL (32.0-36.0); Mean Corpuscular Volume 91.5 fL (80.0-100.0); Mean Platelet Volume 10.4 fL (9.4-12.4); Monocytes # (auto) 0.81 K/uL (0.11-0.59); Monocytes % (auto) 12.4 %; Neutrophils # (auto) 4.91 K/uL (1.40-6.50); Neutrophils % (auto) 75.2 %; Platelet Count 367 K/uL (130-400); RDW Coefficient of Variation 15.7 % (11.5-14.5); RDW Standard Deviation 52.5 fL (36.4-46.3); Red Blood Count 4.49 M/uL (4.70-6.10); White Blood Count 6.52 K/ul (4.8-10.8)
[2023-12-06 19:29] LABS: Albumin Globulin Ratio 1.8 (0.9-2); Albumin Level 3.8 gm/dl (3.4-5.0); BUN Creatinine Ratio 11.5 (10-20); Bilirubin,Total 0.7 mg/dl (0.2-1.0); Calcium 9.6 mg/dl (8.6-10.3); Est GFR (African American) 71.5 ml/min; Est GFR (Non-African American) 61.7 ml/min; Globulin 2.1 gm/dl (2.5-4.0); Total Protein 5.9 gm/dl (6.0-8.3)
[2023-12-06 19:34] LABS: Troponin I High Sensitivity 45.4 pg/ml (0-20)
[2023-12-06 19:38] LABS: INR 2.5 (0.9-1.1); Partial Thromboplastin Ratio 1.5; Partial Thromboplastin Time 42 Seconds (21-31); Prothrombin Time 25.9 Seconds (9.0-12.0)
[2023-12-06] MEDS: ONDANSETRON INJ 2 MG/ML 2 ML VIAL IV STA (20:24)
[2023-12-06] MEDS: ACETAMINOPHEN 500 MG TAB PO STA (20:24)
[2023-12-06] MEDS: OPTIRAY 320 100ml IV ONE (21:17)
--- NOTE | 2023-12-06 22:11 | CT Scan Report ---
Exam(s): CT CHEST With Contrast IV Amt: 92 ml optiray 320 EXAM: CT Chest With Intravenous Contrast CLINICAL HISTORY: Reason for exam: eval for PNA, pleural effusions, SOB. TECHNIQUE: Axial computed tomography images of the chest with intravenous contrast. CTDI is 31 mGy and DLP is 627.03 mGy-cm. Automated exposure control was utilized for the study. A dose lowering technique was utilized adhering to the principles of ALARA. CONTRAST: Patient received 92 ml optiray 320 of IV contrast COMPARISON: No relevant prior studies available. FINDINGS: Lungs: Subsegmental atelectasis seen in bilateral lung bases. No mass. Pleural space: Bilateral moderate sized pleural effusions are seen. No pneumothorax. Heart: There is mild cardiomegaly. No significant pericardial effusion. No significant coronary artery calcifications. Ascending aorta caliber measures 3.6 cm in diameter. Bones/joints: Multiple lucent foci seen in the thoracic vertebral bodies, measuring up to 12 mm in diameter.. No dislocation. Soft tissues: Unremarkable. Lymph nodes: Unremarkable. No enlarged lymph nodes. Liver: There is reflux of contrast into the hepatic veins and IVC. Kidneys and ureters: Chronic left renal atrophy. IMPRESSION: 1. Bilateral moderate sized pleural effusions 2. No acute pulmonary embolism 3. Multiple radiolucent foci in the thoracic spine. This can be further assessed on MRI study. Electronically signed by: Christiano Hughes MD 12/06/23 22:10 PM
--- NOTE | 2023-12-07 00:06 | History & Physical Report ---
Date of Service December 06, 2023 Assessment & Plan (1) SOB (shortness of breath): Plan: 53-year-old male with past med history significant for type 2 diabetes, hyperlipidemia, obstructive sleep apnea, paroxysmal atrial fibrillation, cardiac amyloidosis, chronic heart failure with preserved ejection fraction, nonocclusive coronary disease, CKD stage III, congenital solitary right kidney, BPH, peripheral neuropathic pain, chemotherapy-induced neuropathy, degeneration of lumbosacral sacral disc, multiple myeloma without remission, statin intolerance, history of C diff,history of Salmonella gastroenteritis, comes because of flulike symptoms. Patient states his was diagnosed with COVID a week ago. He was having some runny nose for 2 days that got resolved. Feeling fatigue and weak. He was also getting short of breath and could not take deep breath. Was worried about COVID and came to the ER. BioFire is negative. But CT scan showing bilateral moderate pleural effusions. Patient states when he was diagnosed with cancer in 2013 he had pleural effusions and had a thoracocentesis at that time. States takes torsemide as needed. Used to take torsemide daily but because of dehydration currently taking as needed. He took 1 dose last week. He took 1 dose yesterday because of shortness of breath. Usually takes when his ankle swells. Denies any fevers. Has some headache but that got resolved. Vision is okay. He had no earache. No runny nose. No sore throat. He states he has had difficulty swallowing since last 1 year. Generally he tries to eat soft food. No nausea. Has some lower abdominal discomfort from constipation. States somewhat constipated since last 6 months. Denies any blood in stools or black stools. Micturating okay. No rash. Ambulates with a cane. Hemodynamics are okay. Shortness of breath Bilateral pleural effusions BioFire negative Will monitor in the hospital Nebs as needed for now Consult pulmonary in a.m. for recommendations. Type 2 diabetes hold metformin Insulin sliding scale Will monitor Obstructive sleep apnea CPAP nightly with 2lts oxygen CKD stage III Baseline creatinine 1.7 today creatinine 1.3 Will follow labs History of chronic heart failure with reduced ejection fraction Cardiac amyloidosis EF of 45-50% echo in 2022 on torsemide as needed Monitor for volume overload History of hypotension on Midodrine History of multiple myeloma Looks like last chemo on 11/14/23 per [facility]. Chemo as per heme-onc. Seems plan for Cart therapy at [facility] in January as per patient. On dapsone, acyclovir and tenofovir History of A-fib On Coumadin amiodarone stopped Will follow PT/INR Hypothyroidism On Synthyroid History of nonocclusive CAD On Coumadin and Repatha BPH Proscar GERD Protonix DVT prophylaxis on Coumadin Follow PT/INR Disposition Med/tele History of Present Illness Chief Complaint: Shortness shortness of breath and flulike symptoms Primary Care Provider: Jaime Garcia MD 53-year-old male with past med history significant for type 2 diabetes, hyperlipidemia, obstructive sleep apnea, paroxysmal atrial fibrillation, cardiac amyloidosis, chronic heart failure with preserved ejection fraction, nonocclusive coronary disease, CKD stage III, congenital solitary right kidney, BPH, peripheral neuropathic pain, chemotherapy-induced neuropathy, degeneration of lumbosacral sacral disc, multiple myeloma without remission, statin intolerance, history of C diff,history of Salmonella gastroenteritis, comes because of flulike symptoms. Patient states his was diagnosed with COVID a week ago. He was having some runny nose for 2 days that got resolved. Feeling fatigue and weak. He was also getting short of breath and could not take deep breath. Was worried about COVID and came to the ER. BioFire is negative. But CT scan showing bilateral moderate pleural effusions. Patient states when he was diagnosed with cancer in 2013 he had pleural effusions and had a thoracocentesis at that time. States takes torsemide as needed. Used to take torsemide daily but because of dehydration currently taking as needed. He took 1 dose last week. He took 1 dose yesterday because of shortness of breath. Usually takes when his ankle swells. Denies any fevers. Has some headache but that got resolved. Vision is okay. He had no earache. No runny nose. No sore throat. He states he has had difficulty swallowing since last 1 year. Generally he tries to eat soft food. No nausea. Has some lower abdominal discomfort from constipation. States somewhat constipated since last 6 months. Denies any blood in stools or black stools. Micturating okay. No rash. Ambulates with a cane. Hemodynamics are okay. Past medical history. As mentioned above Past surgical history.Colonoscopy. Cystourethroscopy with plans prostatic implant. EGD. EGD with endoscopic ultrasound. S/p autologous stem cell transplantation 2014. Bilateral cataract surgery. Vasectomy. Social history. . No smoking. Alcohol rarely. No drug use. Family history. No family history on file Allergies Allergy/AdvReac Type Severity Reaction Status Date / Time [id number] Reductase AdvReac Intermediate MUSCLE Verified 12/06/23 19:37 Inhibitor PAIN WITH ATORVASTATIN & ZETIA NSAIDS (Non-Steroidal AdvReac Unknown Advised by Verified 12/06/23 19:37 Anti-Inflamma nephrology to avoid d/t CKD Home Medications Medication Instructions Recorded Confirmed Type acyclovir 400 mg tablet 400 mg PO DAILY 09/15/23 12/06/23 History cholecalciferol (vitamin D3) 50 6,000 unit PO DAILY 09/15/23 12/06/23 History mcg (2,000 unit) capsule (Vitamin D3) dapsone 25 mg tablet 25 mg PO DAILY 09/15/23 12/06/23 History dexamethasone 4 mg tablet 20 mg PO DIRECTED 09/15/23 12/06/23 History duloxetine 20 mg capsule,delayed 40 mg PO DAILY 09/15/23 12/06/23 History release evolocumab 140 mg/mL subcutaneous 140 mg subcut .Q2WKS 09/15/23 12/06/23 History pen injector (Sherry Doran) finasteride 5 mg tablet 5 mg PO DAILY 09/15/23 12/06/23 History folic acid 400 mcg tablet 400 mcg PO DAILY 09/15/23 12/06/23 History icosapent ethyl 1 gram capsule 2 g PO BIDM 09/15/23 12/06/23 History levothyroxine 50 mcg tablet 50 mcg PO DAILYBB 09/15/23 12/06/23 History magnesium chloride 64 mg 64 mg PO BID 09/15/23 12/06/23 History (magnesium chloride) tablet,delayed release (Mag 64) metformin 500 mg tablet,extended 1,000 mg PO DAILY 09/15/23 12/06/23 History release 24 hr midodrine 10 mg tablet 20 mg PO TID 09/15/23 12/06/23 History ondansetron HCl 8 mg tablet 8 mg PO TID PRN Nausea And Vomiting 09/15/23 12/06/23 History oxycodone 5 mg tablet 5 mg PO Q4H PRN Pain 09/15/23 12/06/23 History pantoprazole 20 mg tablet,delayed 20 mg PO DAILY 09/15/23 12/06/23 History release tenofovir alafenamide 25 mg tablet 25 mg PO DAILY 09/15/23 12/06/23 History (Vemlidy) potassium chloride 10 mEq 20 meq (2 x 10 mEq) PO DAILY #60 09/19/23 12/06/23 Rx tablet,extended release tabs albuterol sulfate 90 mcg/actuation 2 puff inhalation Q6H PRN 12/06/23 12/06/23 History aerosol inhaler Shortness Of Breath/COUGH allopurinol 100 mg tablet 100 mg PO DAILY 12/06/23 12/06/23 History epinephrine 0.3 mg/0.3 mL 0.3 mg IM DIRECTED PRN SEVERE 12/06/23 12/06/23 History injection, auto-injector (EpiPen) ALLERGIC REACTION polyethylene glycol 3350 17 gram 17 g PO DAILY PRN Constipation 12/06/23 12/06/23 History oral powder packet (Miralax) prochlorperazine maleate 10 mg 10 mg PO Q6H PRN Nausea 12/06/23 12/06/23 History tablet (Compazine) torsemide 10 mg tablet 10 mg PO QAM PRN EDEMA/FLUID 12/06/23 12/06/23 History RETENTION warfarin 2.5 mg tablet 1.25 mg PO QPM 12/06/23 12/06/23 History Past Med/Surg History Medical History Nausea & vomiting Diarrhea Acute dehydration Elevated lactic acid level Hypokalemia Salmonella enteritis Cardiac amyloidosis CAD (coronary artery disease) Nonobstructive GERD (gastroesophageal reflux disease) Atrial fibrillation Follows with [facility] Low back problem BPH (benign prostatic hyperplasia) CKD (chronic kidney disease) Follows with S/Dr. 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 Amaral [facility] Surgical History History of surgery vasectomy reversal History of surgery Urolift History of vascular access device Right chest port (type unknown) History of cataract surgery History of cardiac cath Right heart cath (2018) History of colonoscopy History of esophagogastroduodenoscopy (EGD) H/O vasectomy Family History Father No problems noted. Mother No problems noted. Other Adopted Social History Smoking Status: Never smoker Tobacco Type: Cigarettes Second Hand Exposure: No; Do You Dip or Chew Tobacco: No; Hx Alcohol Use: No Hx Substance Use: No Preferred Language: Filipino Communication Ability: Effective Welfare Investigator Required: No Beliefs That Will Affect Care: None marital status: marital status details: twice - 3 children in total between the 2 marriages Current Living Situation: Family Current Living Situation Comment: and daughter current occupational status: disabled current occupation: previously worked at [employer] Feels Safe at Home: Yes Assistive Devices: Cane, CPAP, Glasses, Oxygen - at Night and Walker Review of Systems Review of Systems: All systems reviewed & are unremarkable except as noted in HPI & below Physical Exam Physical Exam: General- Not in distress Head- atraumatic Eyes- PERRL. ENT- oropharynx clear Neck- supple, no JVD. Lungs- clear to auscultation no wheezing or crackles. Heart- regular rhythm; no murmur, no gallop. Abdomen- normal bowel sounds, soft, nontender, no distension. Extremities- no pretibial edema, no erythema seen. Neuro- alert, oriented PERRL, no facial palsy; no dysarthria; moves extremities. Results & Data Results & Data Vital Signs (Past 12 Hours) Vital Signs Temp Pulse Pulse Resp BP BP Pulse Ox 12/06/23 22:49 85 12/06/23 22:37 95 12/06/23 22:32 87 14 87 L 12/06/23 22:32 134/94 12/06/23 22:30 91 H 24 92 12/06/23 22:00 83 18 94 12/06/23 21:30 89 22 12/06/23 21:00 87 19 96 12/06/23 20:30 85 19 12/06/23 20:00 91 H 19 98 12/06/23 19:57 143/108 H 12/06/23 19:57 88 20 98 12/06/23 19:30 87 22 12/06/23 19:00 85 19 12/06/23 18:52 98 12/06/23 18:50 83 12/06/23 18:36 85 22 96 12/06/23 17:32 88 15 139/103 H 97 12/06/23 16:00 36.9 C 86 18 115/81 97 O2 Del Method O2 Flow Rate 12/06/23 22:49 12/06/23 22:37 Nasal Cannula 2 12/06/23 22:32 Room Air 12/06/23 22:32 12/06/23 22:30 12/06/23 22:00 12/06/23 21:30 12/06/23 21:00 12/06/23 20:30 12/06/23 20:00 12/06/23 19:57 12/06/23 19:57 12/06/23 19:30 12/06/23 19:00 12/06/23 18:52 Room Air 12/06/23 18:50 12/06/23 18:36 12/06/23 17:32 12/06/23 16:00 Room Air Diagnostic Findings Laboratory Results WBC 6.52 K/ul (4.8-10.8) 12/06/23 18:41 RBC 4.49 M/uL (4.70-6.10) L 12/06/23 18:41 Hgb 14.1 g/dl (14.0-18.0) 12/06/23 18:41 Hct 41.1 % (42.0-52.0) L 12/06/23 18:41 MCV 91.5 fL (80.0-100.0) 12/06/23 18:41 MCH 31.4 pg (25.0-34.0) 12/06/23 18:41 MCHC 34.3 g/dL (32.0-36.0) 12/06/23 18:41 RDW Std Deviation 52.5 fL (36.4-46.3) H 12/06/23 18:41 RDW Coeff of Tobi 15.7 % (11.5-14.5) H 12/06/23 18:41 Plt Count 367 K/uL (130-400) 12/06/23 18:41 MPV 10.4 fL (9.4-12.4) 12/06/23 18:41 Immature Gran % (Auto) 0.2 % 12/06/23 18:41 Neut % (Auto) 75.2 % 12/06/23 18:41 Lymph % (Auto) 8.9 % 12/06/23 18:41 [place] % (Auto) 12.4 % 12/06/23 18:41 Eos % (Auto) 2.5 % 12/06/23 18:41 Baso % (Auto) 0.8 % 12/06/23 18:41 Neut # (Auto) 4.91 K/uL (1.40-6.50) 12/06/23 18:41 Lymph # (Auto) 0.58 K/uL (1.20-3.40) L 12/06/23 18:41 [place] # (Auto) 0.81 K/uL (0.11-0.59) H 12/06/23 18:41 Eos # (Auto) 0.16 K/uL (0.00-0.50) 12/06/23 18:41 Baso # (Auto) 0.05 K/uL (0.00-0.20) 12/06/23 18:41 Immature Gran # (Auto) 0.01 K/uL (0.01-0.20) 12/06/23 18:41 PT 25.9 Seconds (9.0-12.0) H 12/06/23 18:41 INR 2.5 (0.9-1.1) H 12/06/23 18:41 APTT 42 Seconds (21-31) H 12/06/23 18:41 PTT Ratio 1.5 12/06/23 18:41 Sodium 137 mmol/L (136-145) 12/06/23 18:41 Potassium 4.0 mmol/L (3.5-5.1) 12/06/23 18:41 Chloride 99 mmol/L (98-107) 12/06/23 18:41 Carbon Dioxide 31 mmol/L (21-32) 12/06/23 18:41 Anion Gap 7 (3-11) 12/06/23 18:41 BUN 15 mg/dl (6-23) 12/06/23 18:41 Creatinine 1.31 mg/dl (0.6-1.4) 12/06/23 18:41 Est Cr Clr Drug Dosing 60.0 ml/min 12/06/23 18:41 Est GFR ( Amer) 71.5 ml/min 12/06/23 18:41 Est GFR (Non-Af Amer) 61.7 ml/min 12/06/23 18:41 BUN/Creatinine Ratio 11.5 (10-20) 12/06/23 18:41 Glucose 95 mg/dl (70-99(Fasting)) 12/06/23 18:41 Calcium 9.6 mg/dl (8.6-10.3) 12/06/23 18:41 Total Bilirubin 0.7 mg/dl (0.2-1.0) 12/06/23 18:41 AST 11 U/L (13-39) L 12/06/23 18:41 ALT 7 U/L (7-52) 12/06/23 18:41 Alkaline Phosphatase 106 U/L (34-104) H 12/06/23 18:41 Troponin I High Sens 48.6 pg/ml (0-20) H 12/06/23 21:13 Total Protein 5.9 gm/dl (6.0-8.3) L 12/06/23 18:41 Albumin 3.8 gm/dl (3.4-5.0) 12/06/23 18:41 Globulin 2.1 gm/dl (2.5-4.0) L 12/06/23 18:41 Albumin/Globulin Ratio 1.8 (0.9-2) 12/06/23 18:41 Procalcitonin 0.06 ng/ml (0-0.5) 12/06/23 18:41 Adenovirus (PCR) Not Detected (NotDetected) 12/06/23 16:06 B. pertussis DNA (PCR) Not Detected (NotDetected) 12/06/23 16:06 B.parapertussis DNA PCR Not Detected (NotDetected) 12/06/23 16:06 C. pneumoniae DNA (PCR) Not Detected (NotDetected) 12/06/23 16:06 Coronavirus OC43 (PCR) Not Detected (NotDetected) 12/06/23 16:06 Coronavirus HKU1 (PCR) Not Detected (NotDetected) 12/06/23 16:06 Coronavirus 229E (PCR) Not Detected (NotDetected) 12/06/23 16:06 SARS-CoV-2 (PCR) Not Detected (NotDetected) 12/06/23 16:06 Coronavirus NL63 (PCR) Not Detected (NotDetected) 12/06/23 16:06 Human Metapneumovir PCR Not Detected (NotDetected) 12/06/23 16:06 Influenza Type A (PCR) Not Detected (NotDetected) 12/06/23 16:06 Influenza Type B (PCR) Not Detected (NotDetected) 12/06/23 16:06 M. pneumoniae (PCR) Not Detected (NotDetected) 12/06/23 16:06 Parainfluenza 1 (PCR) Not Detected (NotDetected) 12/06/23 16:06 Parainfluenza 2 (PCR) Not Detected (NotDetected) 12/06/23 16:06 Parainfluenza 3 (PCR) Not Detected (NotDetected) 12/06/23 16:06 Parainfluenza 4 (PCR) Not Detected (NotDetected) 12/06/23 16:06 RSV (PCR) Not Detected (NotDetected) 12/06/23 16:06 Entero/Rhino (PCR) Not Detected (NotDetected) 12/06/23 16:06 Impressions Chest X-Ray 12/06/23 16:05 SINGLE VIEW CHEST CLINICAL HISTORY: Atypical chest pain FINDINGS: A PA chest radiograph is compared to study dated 08/26/2023. Correlation is made with chest CT dated 07/24/2022. A right internal jugular central venous infusion port is unchanged in position. The heart is mildly enlarged. There is mild pulmonary vascular congestion. There are layering pleural effusions with dependent consolidation. No pneumothorax is seen. The skeletal structures are osteopenic. The bony thorax is grossly intact. IMPRESSION: 1. Cardiomegaly with mild pulmonary vascular congestion. 2. Layering pleural effusions with dependent consolidation. Radiographic follow- up to resolution is recommended. ACT 112: Negative or not required by law. Electronically signed by: Daniel Alcantara M.D. 12/06/2023 4:[address] 12/06/23 20:33 Exam(s): CT CHEST With Contrast IV Amt: 92 ml optiray 320 EXAM: CT Chest With Intravenous Contrast CLINICAL HISTORY: Reason for exam: eval for PNA, pleural effusions, SOB. TECHNIQUE: Axial computed tomography images of the chest with intravenous contrast. CTDI is 31 mGy and DLP is 627.03 mGy-cm. Automated exposure control was utilized for the study. A dose lowering technique was utilized adhering to the principles of ALARA. CONTRAST: Patient received 92 ml optiray 320 of IV contrast COMPARISON: No relevant prior studies available. FINDINGS: Lungs: Subsegmental atelectasis seen in bilateral lung bases. No mass. Pleural space: Bilateral moderate sized pleural effusions are seen. No pneumothorax. Heart: There is mild cardiomegaly. No significant pericardial effusion. No significant coronary artery calcifications. Ascending aorta caliber measures 3.6 cm in diameter. Bones/joints: Multiple lucent foci seen in the thoracic vertebral bodies, measuring up to 12 mm in diameter.. No dislocation. Soft tissues: Unremarkable. Lymph nodes: Unremarkable. No enlarged lymph nodes. Liver: There is reflux of contrast into the hepatic veins and IVC. Kidneys and ureters: Chronic left renal atrophy. IMPRESSION: 1. Bilateral moderate sized pleural effusions 2. No acute pulmonary embolism 3. Multiple radiolucent foci in the thoracic spine. This can be further assessed on MRI study. Electronically signed by: Christiano Hughes MD 12/06/23 22:10 PM ECG Additional Comments: ECG. Normal sinus rhythm with sinus arrhythmia rate of 83. No acute ST changes seen. Code Status & VTE Plan VTE Prophylaxis Plan VTE Prophylaxis will be ordered: Yes
[2023-12-07] MEDS ORDERED: GLUCOSE 40% GEL 15 GM TUBE PO PRN (02:25)
[2023-12-07] MEDS ORDERED: ALBUTEROL HFA 8 GM INHALER INH PRN (02:25)
[2023-12-07] MEDS ORDERED: CARBOHYDRATES FOR HYPOGLYCEMIA PO PRN (02:25)
[2023-12-07] MEDS ORDERED: GLUCOSE 10 TAB/TUBE PO PRN (02:25)
[2023-12-07] MEDS ORDERED: GLUCAGON FOR INJ 1 MG VIAL SQ PRN (02:25)
[2023-12-07] MEDS ORDERED: POLYETHYLENE (MIRALAX) 17 GM PACK PO PRN (02:25)
[2023-12-07] MEDS ORDERED: NITROGLYCERIN SL 0.4 MG/TAB TAB SL PRN (02:25)
[2023-12-07] MEDS ORDERED: oxyCODONE HCL IR 5 MG TAB (IMMEDIATE RELEASE) PO PRN (02:25)
[2023-12-07] MEDS ORDERED: DEXTROSE 50% 50 ML SYRINGE IV PRN (02:25)
[2023-12-07] MEDS: WARFARIN SOD 1.25 MG TAB PO STA (03:07)
[2023-12-07 05:58] LABS: Basophils # (auto) 0.05 K/uL (0.00-0.20); Basophils % (auto) 0.8 %; Eosinophils # (auto) 0.15 K/uL (0.00-0.50); Eosinophils % (auto) 2.4 %; Hematocrit (blood only) 43.2 % (42.0-52.0); Hemoglobin 14.5 g/dl (14.0-18.0); Immature Granulocytes # (auto) 0.01 K/uL (0.01-0.20); Immature Granulocytes % (auto) 0.2 %; Lymphocytes # (auto) 0.62 K/uL (1.20-3.40); Mean Corpuscular Hgb Conc 33.6 g/dL (32.0-36.0); Mean Corpuscular Volume 92.5 fL (80.0-100.0); Monocytes # (auto) 0.85 K/uL (0.11-0.59); Monocytes % (auto) 13.8 %; Neutrophils % (auto) 72.8 %; Platelet Count 330 K/uL (130-400); RDW Coefficient of Variation 15.6 % (11.5-14.5); RDW Standard Deviation 52.9 fL (36.4-46.3); Red Blood Count 4.67 M/uL (4.70-6.10); White Blood Count 6.18 K/ul (4.8-10.8)
[2023-12-07] MEDS: LEVOTHYROXINE SODIUM 50 MCG TABLET PO SCH (06:06)
[2023-12-07 06:15] LABS: BUN Creatinine Ratio 11.1 (10-20); Calcium 9.5 mg/dl (8.6-10.3); Creatinine Clr Calc Pharmacy 58.6 ml/min; Est GFR (Non-African American) 59.5 ml/min; Magnesium 1.7 mg/dl (1.7-2.4); Potassium 5.6 mmol/L (3.5-5.1)
[2023-12-07 06:22] LABS: INR 2.3 (0.9-1.1); Prothrombin Time 23.9 Seconds (9.0-12.0)
[2023-12-07 06:23] LABS: Troponin I High Sensitivity 48.8 pg/ml (0-20)
[2023-12-07 06:31] LABS: Thyroid Stimulating Hormone 2.964 uIu/ml (0.300-4.500)
--- NOTE | 2023-12-07 07:19 | Pulmonary Consultation ---
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: (5) Acute on chronic combined systolic and diastolic CHF, NYHA class 2: Plan CT chest 12/06/2023 personally reviewed: Moderate to large right-sided pleural effusion, moderate left-sided pleural effusion with compressive atelectasis of bilateral lower lobes Minimal interlobular thickening No significant mediastinal lymphadenopathy 2D echo 08/27/2023: EF 45-50%, grade 2 diastolic dysfunction, RV normal in size with severe RVH, RV systolic function is mild to moderately reduced -- Bilateral pleural effusion With compressive atelectasis of bilateral lower lobes Likely secondary to acute exacerbation of systolic and diastolic CHF. 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 Planning to get CAR-T treatment in January 2024 -- A-fib On warfarin at home Plan: Patient is already feeling better. I would recommend to have aggressive diuresis to have at least -1 L on a daily basis. Recommend strict ins and outs Incentive spirometry will be beneficial. I do not think there is an indication for thoracentesis right now. If there is failure of diuresis then it could be thought of. Please note the above document was generated using voice recognition software. It may contain grammatical, syntax or spelling errors.Any formal questions or concerns about the content, text or information contained within the body of this dictation should be directly addressed to the provider for clarification. History of Present Illness Attending Physician: Eddie Conn MD History of Present Illness 53-year-old male presented to hospital with complaints of worsening shortness of breath Past medical history: HFpEF, cardiac amyloidosis, paroxysmal A-fib, DEBBY, dyslipidemia, type 2 diabetes, CKD, BPH, history of multiple myeloma on therapy Pulmonary consulted for bilateral pleural effusion At the time of examination patient was saturating 96% on room air. He was not in any respiratory distress His heart rate was in the high 70s to low 80s. He stated he is feeling better since coming to the hospital. He used his CPAP overnight. He used to be on diuretics to be used on a daily basis but he stopped using it approximately a month ago as he was getting dizzy and dehydrated as per the patient. His issue is shortness of breath on exertion and when he is laying down. Denies any fever or chills No night sweats, has not some weight in the last couple of years gradually. This is unintentional. No headache, no blurry vision No nausea vomiting No dysuria, no diarrhea Social history: Lifetime non-smoker. Used to work for [employer]. No history of lung cancer in the family Allergies Allergy/AdvReac Type Severity Reaction Status Date / Time [id number] Reductase AdvReac Intermediate MUSCLE Verified 12/06/23 19:37 Inhibitor PAIN WITH ATORVASTATIN & ZETIA NSAIDS (Non-Steroidal AdvReac Unknown Advised by Verified 12/06/23 19:37 Anti-Inflamma nephrology to avoid d/t CKD Home Medications Medication Instructions Recorded Confirmed Type acyclovir 400 mg tablet 400 mg PO DAILY 09/15/23 12/06/23 History cholecalciferol (vitamin D3) 50 6,000 unit PO DAILY 09/15/23 12/06/23 History mcg (2,000 unit) capsule (Vitamin D3) dapsone 25 mg tablet 25 mg PO DAILY 09/15/23 12/06/23 History dexamethasone 4 mg tablet 20 mg PO DIRECTED 09/15/23 12/06/23 History duloxetine 20 mg capsule,delayed 40 mg PO DAILY 09/15/23 12/06/23 History release evolocumab 140 mg/mL subcutaneous 140 mg subcut .Q2WKS 09/15/23 12/06/23 History pen injector (Sherry Doran) finasteride 5 mg tablet 5 mg PO DAILY 09/15/23 12/06/23 History folic acid 400 mcg tablet 400 mcg PO DAILY 09/15/23 12/06/23 History icosapent ethyl 1 gram capsule 2 g PO BIDM 09/15/23 12/06/23 History levothyroxine 50 mcg tablet 50 mcg PO DAILYBB 09/15/23 12/06/23 History magnesium chloride 64 mg 64 mg PO BID 09/15/23 12/06/23 History (magnesium chloride) tablet,delayed release (Mag 64) metformin 500 mg tablet,extended 1,000 mg PO DAILY 09/15/23 12/06/23 History release 24 hr midodrine 10 mg tablet 20 mg PO TID 09/15/23 12/06/23 History ondansetron HCl 8 mg tablet 8 mg PO TID PRN Nausea And Vomiting 09/15/23 12/06/23 History oxycodone 5 mg tablet 5 mg PO Q4H PRN Pain 09/15/23 12/06/23 History pantoprazole 20 mg tablet,delayed 20 mg PO DAILY 09/15/23 12/06/23 History release tenofovir alafenamide 25 mg tablet 25 mg PO DAILY 09/15/23 12/06/23 History (Vemlidy) potassium chloride 10 mEq 20 meq (2 x 10 mEq) PO DAILY #60 09/19/23 12/06/23 Rx tablet,extended release tabs albuterol sulfate 90 mcg/actuation 2 puff inhalation Q6H PRN 12/06/23 12/06/23 History aerosol inhaler Shortness Of Breath/COUGH allopurinol 100 mg tablet 100 mg PO DAILY 12/06/23 12/06/23 History epinephrine 0.3 mg/0.3 mL 0.3 mg IM DIRECTED PRN SEVERE 12/06/23 12/06/23 History injection, auto-injector (EpiPen) ALLERGIC REACTION polyethylene glycol 3350 17 gram 17 g PO DAILY PRN Constipation 12/06/23 12/06/23 History oral powder packet (Miralax) prochlorperazine maleate 10 mg 10 mg PO Q6H PRN Nausea 12/06/23 12/06/23 History tablet (Compazine) torsemide 10 mg tablet 10 mg PO QAM PRN EDEMA/FLUID 12/06/23 12/06/23 History RETENTION warfarin 2.5 mg tablet 1.25 mg PO QPM 12/06/23 12/06/23 History Patient History Medical History Nausea & vomiting Diarrhea Acute dehydration Elevated lactic acid level Hypokalemia Salmonella enteritis Cardiac amyloidosis CAD (coronary artery disease) Nonobstructive GERD (gastroesophageal reflux disease) Atrial fibrillation Follows with [facility]/Tim Ruiz PAC Low back problem BPH (benign prostatic hyperplasia) CKD (chronic kidney disease) Follows with [facility]/Dr. 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 Amaral [facility] Surgical History History of surgery vasectomy reversal History of surgery Urolift History of vascular access device Right chest port (type unknown) History of cataract surgery History of cardiac cath Right heart cath (2017) History of colonoscopy History of esophagogastroduodenoscopy (EGD) H/O vasectomy Family History Father No problems noted. Mother No problems noted. Other Adopted Social History Smoking Status: Never smoker Tobacco Type: Cigarettes Second Hand Exposure: No; Do You Dip or Chew Tobacco: No; Hx Alcohol Use: No Hx Substance Use: No Preferred Language: Danish Communication Ability: Effective Offset Pressman Required: No Beliefs That Will Affect Care: None marital status: marital status details: twice - 3 children in total between the 2 marriages Current Living Situation: Family Current Living Situation Comment: and daughter current occupational status: disabled current occupation: previously worked at [employer] Feels Safe at Home: Yes Assistive Devices: Cane, CPAP, Glasses, Oxygen - at Night and Walker Review of Systems 2 Review of Systems: All systems reviewed & are unremarkable except as noted in HPI & below Physical Exam 2 Physical Exam: Constitutional: No acute distress HEENT: EOMI, PERRLA Respiratory system: Decreased air entry bilaterally, no wheeze, no rhonchi, positive crackles bilateral lower lobes CVS: S1-S2 positive, no murmurs or gallops, accentuated P2 Abdomen: Soft, nontender, nondistended, positive bowel sounds x4 Extremities: +2 pulses bilaterally radialis/ dorsalis pedis, no cyanosis, no edema Neuro: Awake alert oriented x3 Psych: Normal mood and affect G/U: No Laurent Skin: no rashes, warm and dry Lymphatic: no cervical or axillary lymphadenopathy Results & Data Results & Data Vital Signs (Past 12 Hours) Vital Signs Temp Pulse Pulse Resp BP BP Pulse Ox 12/07/23 07:04 80 12/07/23 03:15 71 17 98 12/07/23 02:30 12/07/23 02:30 36.4 C 82 18 124/87 96 12/07/23 02:26 82 12/06/23 22:49 85 12/06/23 22:37 95 12/06/23 22:32 87 14 87 L 12/06/23 22:32 134/94 12/06/23 22:30 91 H 24 92 12/06/23 22:00 83 18 94 12/06/23 21:30 89 22 12/06/23 21:00 87 19 96 12/06/23 20:30 85 19 12/06/23 20:00 91 H 19 98 12/06/23 19:57 143/108 H 12/06/23 19:57 88 20 98 12/06/23 19:30 87 22 O2 Del Method O2 Flow Rate 12/07/23 07:04 12/07/23 03:15 2 12/07/23 02:30 Room Air, CPAP 12/07/23 02:30 Room Air 12/07/23 02:26 12/06/23 22:49 12/06/23 22:37 Nasal Cannula 2 12/06/23 22:32 Room Air 12/06/23 22:32 12/06/23 22:30 12/06/23 22:00 12/06/23 21:30 12/06/23 21:00 12/06/23 20:30 12/06/23 20:00 12/06/23 19:57 12/06/23 19:57 12/06/23 19:30 Laboratory Results 12/07/23 05:40 12/07/23 05:40 PG Care Time/CCT Total # of Minutes Spent Total Time Spent with Patient: Total time spent is greater than 50% in coordination of care (as documented) at patient's floor/unit and/or counseling patient: Coding Level of Care Code 60980 INT INP/OBS CARE 3/75MIN Diagnoses Pleural effusion, bilateral J90 SOB (shortness of breath) R06.02 DEBBY (obstructive sleep apnea) G47.33 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
--- OUTSIDE RECORDS SUMMARY | 2023-12-07 07:47 | External Medical Summary ---
Author Name Unknown Address Unknown Organization : Laboratory Report Ordering Provider Test Date Status TASNEEM SLAUGHTER 12/01/2023 08:50:33 Final Therapeutic ranges for non-o perative patients:
Prophylaxsis/treatment of DVT: (Range:2.0-3.0)
Treatment of pulmonary embolism:(Range:2.0-3.0)
Prevention of systemic embolism from:
-tissue heart valves
-acute myocardial infarction
-valvular heart disease
-atrial fibrillation
(Range: 2.0-3.0)
Mechanical prosthetic valves: (Range: 2.5-3.5) Observation Date Value Abnormality Reference (Units ) Status INR in Capillary blood by Coagulation assay 12/01/2023 08:50:33 2.1 (INR) Final Performing Location
--- OUTSIDE RECORDS SUMMARY | 2023-12-07 07:47 | External Medical Summary | Summary of Care ---
Author Name Unknown Organization [facility] Address [address] [place] [address] Phone [phone] Care Team Providers Care Telegraph Inspector Name Role Phone Jiame Garcia MD Primary Care Provide r Reason for Visit * Reason Comments Chemotherapy DarzalexFaspro/Cytox an * Episode Based Medications (Routine) - Authorized Specialty Diagnoses / Procedures Referred By Contbianca t Referred To Contact Diagnoses Lambda light chain myeloma (HCC) AL amyloidosis (HCC) Procedures [place] DARATUMUMAB, HYALURONIDASE [place] CYCLOPHOSPHAMIDE 100 MG INJ Rosalio Amaral MD [place] [address] Anc Hem/Onc Scenes[facility]hdeep Renae DEPT CLOSED - 07/26/23 [address] [place] [phone] Referral ID Status Reason Start Date Expiration Date V isits Requested Visits Authorized [id number] Authorized 10/21/2023 10/21/2024 [id number] Encounter Details Date Type Department Care Team (Latest Contact Info) Description 10/28/2023 9:00 AM EST Hem/Onc Treatment Hematology/Oncolog y Treatment, [place] [address] [place] [address] [place], Chair 4 Hem Onc Scenery [address] [place] [address] Lambda light chain myeloma (HCC)*; AL amyloidosis (HCC); Multiple myeloma in relapse (HCC); Multiple myeloma without remission (HCC); Encounter for antineoplastic chemotherapy Allergies Active Allergy Reactions Criticality Noted Date Comments Atorvastatin Muscle pain High 03/30/2019 Ezetimibe Muscle pain High 01/25/2020 documented as of this encounter (statuses as of 11/29/2023) Medications Medication Sig Dispensed Refills Start Date End Date Status NSS 0.9 % SOLN with daratumumab 400 MG/20ML SOLN 16 mg/kgIndications: every 4 weeks Administer intravenously every 14 days. 0 Active CPAP every night at bedtime. 0 Active oxygen IN GAS Use 2 L/min(Oxygen) as directed at bedtime. 1 Each 0 11/12/19 21 Active OneTouch Ultra Blue In Vitro Strip (Glucose Blood)Indications :Type 2 diabetes mellitus with hemoglobin A1c goal of less than 7.0% ([facility]) Use as directed daily. Test once daily DxE11.9 100 Strip 03/02/20 Active LancetsIndication s:Type 2 diabetes mellitus with hemoglobin A1c goal of less than 7.0% ([facility]) Test once daily DxE11.9. 100 Each 5 03/02/20 21 Active Albuterol Sulfate HFA 108 (90 Base) MCG/ACT Inhalation Aerosol SolutionIndicatio ns:Acute bronchitis, antibiotics not indicated Inhale 2 Puffs by mouth every 6 hours as needed for Cough or Shortness of Breath. 54 g 1 06/30/20 21 Active Acyclovir 400 MG Oral Tablet (Zovirax)Indicati ons:Lambda light chain myeloma ([facility]) Take one tablet once daily 180 Tablet 3 12/15/19 22 Active Hizentra 4 GM/20ML Subcutaneous Solution (immune globulin human 20%) Patient is to subcutaneously infuse three four gram vials twice weekly for four weeks then 6 grams weekly. 480 mL 0 09/16/19 23 Active Hizentra 2 GM/10ML Subcutaneous Solution (immune globulin human 20%) Patient is to subcutaneously inject one 2 gram vial plus one four gram vial for a total of 6 grams weekly after loading dose of 12 grams twice weekly x four weeks . 120 mL 12 09/16/19 23 Active diphenhydrAMINE HCl 50 MG Oral Capsule (Benadryl) Take one 25 mg capsule by mouth one hour prior to Hizentra, 50 Capsule 2 09/16/19 Active Acetaminophen 325 MG Oral Tablet (Tylenol) Take two 325 mg tablets by mouth one hour prior to Hizentra. 30 Tablet 3 09/16/19 Active EpiPen 2-Konstantin 0.3 MG/0.3ML Injection Solution Auto-injector For a severe reaction: Inject in outer thigh following instructions on package and go to the Emergency room. 2 Each 3 10/05/19 Active Dexamethasone 4 MG Oral Tablet (Decadron)Indicat ions:Multiple myeloma not having achieved remission (HCC) 5 tabs 2 times monthly 10 Tablet 5 10/25/19 Active Polyethylene Glycol 3350 17 GM Oral Packet Take 1 Packet by mouth daily as needed. 0 Active oxyCODONE-Acetami nophen 5-325 MG Oral Tablet (Percocet) Take 1 Tablet by mouth every 6 hours as needed for Pain, Severe. 10 Tablet 0 03/17/20 Active Levothyroxine Sodium 50 MCG Oral Tablet (Levoxyl) TAKE 1 TABLET BY MOUTH DAILY AT LEAST 30 MINUTES PRIOR TO FIRST MEAL OF THE DAY OR OTHER MEDICATIONS 90 Tablet 3 01/12/20 23 Active Additional Information Patient taking differently: 50 mcg Oral [id number], Reported on 04/14/2023 Finasteride 5 MG Oral Tablet (Proscar) TAKE 1 TABLET BY MOUTH IN THE MORNING 90 Tablet 3 04/12/20 23 024 Active DULoxetine HCl 20 MG Oral Capsule Delayed Release Particles (Cymbalta) Take 2 Capsules by mouth in the morning. 180 Capsule 1 06/06/20 Active Cholecalciferol 50 MCG (1999 UT) Oral TabletIndications :Lambda light chain myeloma (HCC),Multiple myeloma without remission (HCC) Take 50 mcg by mouth in the morning. 30 Tablet 5 06/14/20 23 Active Additional Information Patient taking differently: 150 mcgOral Daily(AM), Reported on 08/20/2023 Repatha SureClick 140 MG/ML Subcutaneous Solution Auto-injector (evolocumab)Indic ations:Dyslipidem ia, goal LDL below 70 INJECT 140MG (1 INJECTION) UNDER THE SKIN EVERY 14 DAYS. REMOVE FROM REFRIGERATOR 30 MINUTES PRIOR TO INJECTION 6 mL 3 06/15/20 23 024 Active metFORMIN HCl ER 500 MG Oral Tablet Extended Release 24 Hour (Glucophage XR)Indications:Ty pe 2 diabetes mellitus with hemoglobin A1c goal of less than 7.0% ([facility]) Take 2 Tablets by mouth in the morning. 180 Tablet 1 07/11/20 Active Pen [place] 32G X 4 MM Use as directed. Inject Lantus once daily. 50 Each 3 07/19/20 23 Active Icosapent Ethyl 1 GM Oral Capsule (Vascepa)Indicati ons:Hyperlipidemi a with target LDL less than 70 Take 2 Capsules by mouth 2 times a day with morning and evening meals. Swallow capsules whole, do not open or break. 360 Capsule 3 07/20/20 Active Folic Acid 400 MCG Oral TabletIndications :Low folate TAKE ONE TABLET BY MOUTH IN THE MORNING 90 Tablet 1 08/27/20 23 024 Active Pantoprazole Sodium 20 MG Oral Tablet Delayed Release (Protonix)Indicat ions:Gastroesopha geal reflux disease without esophagitis TAKE ONE TABLET BY MOUTH EVERY DAY IN THE MORNING 90 Tablet 2 08/31/20 23 024 Active Dexcom G7 SensorIndications :Type 2 diabetes mellitus with stage 3b chronic kidney disease, without long-term current use of insulin ([facility]) Use as directed to check blood sugars daily. Change every 10 days 9 Each 3 09/01/20 Active Midodrine HCl 10 MG Oral Tablet (Proamatine)Indic ations:takes 1-3 tabs depending on bp as needed Take 2 tablet shortly before or upon rising in the morning, at midday, and in the late afternoon (not later than 6 PM) 600 Tablet 3 09/02/20 23 Active Nystatin 500135 UNIT/ML Mouth/Throat SuspensionIndicat ions:Multiple myeloma in relapse ([facility]) Swish and swallow 5 mL in the morning and 5 mL at noon and 5 mL in the evening and 5 mL before bedtime. 60 mL 1 09/08/20 23 Active Additional Information Patient not taking.Reported on 10/04/2023 Vemlidy 25 MG Oral Tablet (Tenofovir Alafenamide Fumarate) Take 1 tablet by mouth in the morning. 90 Tablet 1 09/09/20 23 Active Ondansetron HCl 8 MG Oral Tablet (Zofran)Indicatio ns:Nausea Take 1 Tablet by mouth every 8 hours as needed for Nausea. 30 Tablet 3 09/14/19 24 Active Prochlorperazine Maleate 10 MG Oral Tablet (Compazine)Indica tions:Nausea and vomiting, unspecified vomiting type Take 1 Tablet by mouth every 6 hours as needed for Nausea. 40 Tablet 0 09/20/19 24 Active Ondansetron 4 MG Oral Tablet Disintegrating (Zofran) 0 08/08/20 23 Active Potassium Chloride ER 20 MEQ Oral Tablet Extended Release Take 1 Tablet by mouth in the morning. 0 Active Advanced Probiotic 10 Oral Capsule 1 Capsule in the morning. 0 08/18/20 23 Active NSS 0.9 % SOLN 100 mL with cefTRIAXone 2 GM SOLR 2 g Administer 2 g intravenously daily. 0 Active Allopurinol 100 MG Oral Tablet (Zyloprim)Indicat ions:Multiple myeloma in relapse (HCC) Take 1 Tablet by mouth in the morning. 30 Tablet 4 10/11/19 24 Active Warfarin Sodium 2.5 MG Oral Tablet (Coumadin)Indicat ions:Atrial fibrillation, unspecified type (HCC),Anticoagula tion management encounter,termination clerk current use of anticoagulant therapy,Paroxysma l atrial fibrillation (HCC) TAKE ONE TABLET BY MOUTH ON TUESDAY AND TUESDAY, AND ONE-HALF TABLET ALL OTHER DAYS OR DIRECTED BY ANTICOAGULATION CLINIC 75 Tablet 3 11/11/19 23 024 Discontinued(Re fill) Dapsone 25 MG Oral TabletIndications :Multiple myeloma in relapse (HCC) TAKE ONE TABLET BY MOUTH EVERY DAY 90 Tablet 1 04/26/20 23 024 Discontinued(Re fill) Magnesium Chloride 64 MG Oral Tablet Delayed Release (Mag64) Take 1 Tablet by mouth in the morning and 1 Tablet before bedtime. 0 024 Discontinued(Re fill) Torsemide 10 MG Oral Tablet (Demadex)Indicati ons:takes extra tab for swelling, wt gain Take 1 Tablet by mouth in the morning every other day. 100 Tablet 3 09/02/20 23 024 Discontinued oxyCODONE HCl 5 MG Oral Tablet (Oxy IR)Indications:Mu ltiple myeloma in relapse (HCC) Take 1 Tablet by mouth every 4 hours as needed for breakthrough pain. 30 Tablet 0 10/06/19 24 024 Discontinued(Re fill) documented as of this encounter (statuses as of 11/29/2023) Active Problems Problem Noted Date Diagnosed Date [...] as of this encounter (statuses as of 11/29/2023) Resolved Problems Problem Noted Date Diagnosed Date [...] as of this encounter (statuses as of 11/29/2023) Immunizations Name Administration Dates Next Due COVID-19, [...] Sign Reading Time Taken Comments Blood Pressure 120/84 10/28/2023 11:47 AM EST Pulse 96 10/28/2023 9:20 AM EST Temperature 36.2 C (97.1 F) 10/28/2023 9:20 AM ES T Respiratory Rate 18 10/28/2023 9:20 AM EST Oxygen Saturation 94% 10/28/2023 9:20 AM EST Inhaled Oxygen Concentration - - Weight 66.9 kg (147 lb 6.4 oz) 10/28/2023 9:20 A M EST Height - - Body Mass Index 21.77 10/04/2023 10:42 AM EST documented in this encounter Nursing Notes * Moon Ruby RN - 10/28/2023 12:19 PM EST Functional status at today's visit: Ambulatory and capable of all selfcare but unable to carry out any work activities. Up and about more than 50% of waking hours The drug name, dose, infusion volume, rate and route of administration, expiration date and time, appearance and physical integrity of the drug and rate set on the pump and sequencing of drug administration (as applicable) were verified by me and second sign-in RN. Patient was assessed for symptoms or adverse side effects during treatment. Pt completed treatment without issues. Xgeva administered per order; pt tolerated well. VAD flushedwith 10 ml NSS and Heparin 5 ml (100 units/ml). Rosenberg needle removed intact. BP improved upon completion of treatment with hydration. Goals: Pt will remain free from injury. Possible barriers to meeting goals: pt is a high fall risk Stability of the patient: Moderately unstable - medium risk of patient condition declining or worsening Summary regarding today's goals: Met: Pt remained free from injury during treatment today. Discharged in stable condition. AB assisted. * Moon Ruby RN - 10/28/2023 9:23 AM EST Chair 11 Chemo agents Darzalex Faspro/Cytoxan Appetite pt reports minimal appetite, primarily due to dysguesia. Pt states he has limited food options also due to being edentulous. Nausea/Vomiting Pt experiences intermittent nausea with occasional dry heaves. Pt states he uses antiemetics PRN. Diarrhea pt reports soft/loose stools since completing antibiotics 2-3 weeks ago for tx of salmonella. Mucositis no Fatigue yes, extreme persistent fatigue, dizziness Bleeding no Infection no Rash no Numbness tingling stable Pain no Radiation n/a ABN Labs at baseline for patient Alt in Tx: no Return in 2 weeks Pt presents to clinic reporting extreme fatigue, stating he "sleeps all the time". Pt reports feeling dehydrated, and admittedly does not consume enough fluids. BP 94/61. Message sent to Dr. Amaral re: IV hydration today. VAD accessed; NSS infusing. Safety and Risk for Injury Patient will remain free from injury. Ensure appropriate safety devices are available. Provide and maintain safe environment. documented in this encounter Plan of Treatment Upcoming Encounters Date Type Department Care Team (Late st Contact Info) Description 12/01/2023 8:40 AM EDT Anticoagulation Pharmacy, [address] [place] [phone] [place] [address] 12/09/2023 3:30 PM EDT Telemedicine Hematology [facility] [address] [facility] [place] [address] Rosalio Amaral MD [address] [facility] [place] [address] 12/15/2023 8:30 AM EDT Office Visit Cardiology, [facility] [address] [facility] [place] [address] Beth Gibbs CRNP [address] [place] [id number] 12/29/2023 9:00 AM EDT Office Visit Otolaryngology [facility] [address] [place] [address] Haley Aguero PA-C [address] [place] [address] 01/06/2024 2:30 PM EDT Home Visit [facility] [place], [facility] [address] [place] [address] Sulma Seth, BOBBY [address] [place] [phone] 03/08/2024 9:00 AM EDT Office Visit Cardiology [address] [place] [address] Tim Ruiz PA-C [address] [place] [address] 10/30/2024 1:45 PM EST Office Visit Urology, [facility] [address] [place] [address] [facility] [address] [place] [address] Health Maintenance Due Date Last Done Comments Cologuard 2015 Fecal Occult Blood Test 2015 Sigmoidoscopy 2015 COVID-19 Vaccine (3 - Pfizer risk series) 11/03/2021 10/06/2021, 06/23/2021 Depression Screening 01/05/2022 01/05/2021 Diabetic Foot Exam 12/14/2022 12/14/2021, 0 10/15/2020, 06/25/2019 HbA1c 01/05/2024 07/06/2023, 08/0 11/2022, 03/29/2023, Additional history exists GFR 05/16/2024 11/14/2023, 03/09/2023, 11/11/2023, Additional history exists Pneumococcal Vaccine: Pediatrics (0 to 5 Years) and At-Risk Patients (6 to 64 Years) (3 of 3 - PPSV23 or PCV20) 05/22/2024 05/13/2020, 05/22/2019 Diabetic Eye Exam 07/11/2024 07/11/2023, , 07/05/2022, Additional history exists TSH 07/25/2024 07/25/2023, 03/12, 01/31/2023, Additional history exists Albumin/Creatinine Ratio 09/08/2024 023, 06/22/2023, 05/27/2023, Additional history exists CKD HGB USE SMARTSET 87155 11/13/202411/13, 11/14/2023, 10/28/2023, Additional history exists CKD PHOS USE SMARTSET 38496 11/13/2024/0 12/2023, 10/28/2023, 08/16/2023, Additional history exists DTaP,Tdap,and Td Vaccines [...] this encounter Medical Devices Implanted Type Area Airbrush Artist Technical Device Identifier Shelf Expiration Date Model / Serial / Lot Port Power Mri W/8fr Cath - [id number] Implanted:Qty: 1 on 09/26/2020 by Simone Michelle MD at OR [facility] Right: Chest CR BARD : PERIPHERAL VASCULAR 10/12/2021 [id number] / / [id number] Description:right IJ Lens Intraoc 19.0 - [id number] - [id number] Implanted:Qty: 1 on 02/03/2021 by Chris Sexton MD at OR [facility] Right: Eye [employer] 09/11/2025 [id number] / [id number] / Lens Intraoc 19.0 - [id number] - [id number] Implanted:Qty: 1 on 02/24/2021 by Chris Sexton MD at OR [facility] Left: Eye [employer] 10/12/2025 [id number] / [id number] / [id number] System Urolift - [id number] Implanted:Qty: 2 on 03/17/2023 by Devyn Paniagua MD at OR [facility] N/A: Urethra [employer] 11/18/2023 [id number] / / [id number] System Urolift - [id number] Implanted:Qty: 3 on 03/17/2023 by Devyn Paniagua MD at OR [facility] N/A: Urethra [employer] 11/03/2023 [id number] / / [id number] documented as of this encounter Procedures Procedure Name Priority Date/Time Associated Diagnosis Comments PHOSPHORUS STAT 10/28/2023 8:04 AM EST Multiple myeloma in relapse (HCC) documented in this encounter Results * PHOSPHORUS (10/28/2023 8:04 AM EST) Phosphorus 3.1 2.5 - 4.8 mg/dL 10/28/2023 10:09 AM EST [facility] 56-02 Blood Venous blood specimen / Unknown Venipuncture / Unknown 10/28/2023 8:04 AM EST 10/28/2023 9:56 AM EST Rosalio Amaral MD LAB BLOOD ORDERABLES [facility] [address] [place] [address] documented in this encounter Visit Diagnoses Diagnosis Lambda light chain myeloma (HCC)- Primary Multiple myeloma, without mention of having achieved remission AL amyloidosis (HCC) Other amyloidosis Multiple myeloma in relapse (HCC) Multiple myeloma, in relapse Multiple myeloma without remission (HCC) Multiple myeloma, without mention of having achieved remission Encounter for antineoplastic chemotherapy documented in this encounter Administered Medications Inactive Administered Medications - up to 3 most recent administrations Medication Order MAR Action Action Date Dose Rate Site Acetaminophen (Tylenol) tab 650 mg 650 mg, Oral, ONCE, On Tue10/28/23 at 0945, For 1 dose, Maximum of 4 grams (4000 mg) per day. Given 10/28/2023 9:38 AM EST 650 mg cycloPHOSphamide (Cytoxan) 500 mg in NSS 250 mL infusion 500 mg, IV Piggyback, Administer over 30 Minutes, Cyclophosphamide doses over 1g should be in 500 mL. May extend infusion to 1 hour if not tolerated., ONCE, 1 dose, On Tue10/28/23 at 1000 Start Infusion 10/28/2023 10:20 AM EST 500 mg 500 mL/hr Daratumumab-hyaluronida se-unc healthj (Darzalex Faspro) 1800 mg-50756 units/ 15 ml subcut inj 15 mL, Subcutaneous, ONCE, On Tue10/28/23 at 1130, For 1 dose, Inject subcutanteously into abdomen over 3 to 5 minutes Given 10/28/2023 10:49 AM EST 15 mL Abdomen Left Lower Denosumab (Xgeva) subcut inj 120 mg 120 mg, Subcutaneous, ONCE, On Tue10/28/23 at 1115, For 1 dose Given 10/28/2023 11:41 AM EST 120 mg Arm Right Upper dexAMETHasone (Decadron) tab 20 mg 20 mg, Oral, ONCE, On Tue10/28/23 at 0945, For 1 dose Given 10/28/2023 9:37 AM EST 20 mg diphenhydrAMINE (Benadryl) cap 25 mg 25 mg, Oral, ONCE, On Tue10/28/23 at 0945, For 1 dose Given 10/28/2023 9:37 AM EST 25 mg Famotidine (Pepcid) tab 10 mg 10 mg, Oral, ONCE, On Tue10/28/23 at 0945, For 1 dose Given 10/28/2023 9:38 AM EST 10 mg hEParin 100 UNIT/ML Lock Flush inj 500 Units 500 Units (5 mL), IV Lock, PRN Other, IV Flush, Starting on Tue10/28/23 at 0919, Until Tue10/28/23 at 1622, For 24 hours, Do not flush if lock, PICC, or central line not in place; IV infusing or unable to flush. Given 10/28/2023 11:41 AM EST 500 Units isolyte 500 mL bolus infusion Intravenous, at 500 mL/hr Administer over 1 Hours, Administer entire volume within 60 minutes or less. Plasma-LYTE 148, isolyte-S, and isolyte-S pH 7.4 are considered equivalent - including for MAR barcode scanning., ONCE, 1 dose, On Tue10/28/23 at 1215 Start Infusion 10/28/2023 10:50 AM EST 500 mL 500 mL/hr NSS infusion 500 mL, Intravenous, at 50 mL/hr, CONTINUOUS, Starting on Tue10/28/23 at 1030, Until Tue10/28/23 at 1622 Start Infusion 10/28/2023 9:25 AM EST 500 mL 50 mL/hr sodium chloride 0.9 % flush central line 10 mL 10 mL, IV Push, PRN Other, IV Flush, Starting on Tue10/28/23 at 0919, Until Tue10/28/23 at 1622, For 24 hours, Do not flush if lock, PICC, or central line not in place; IV infusing or unable to flush. Given 10/28/2023 11:41 AM EST 10 mL documented in this encounter Additional Health Concerns Infection Onset Date Last Indicated Resolved Time Salmonella 09/14/2023 09/14/2023 documented as of this encounter [...] and were consensually agreed upon. Care Teams Telegraph Inspector Relationship Specialty Start Date End Date Jaime Garcia MD [address] [place] [address] [place] [phone] PCP - General Family Medicine 10/15/20 documented as of this encounter
--- OUTSIDE RECORDS SUMMARY | 2023-12-07 07:47 | External Medical Summary | Summary of Care ---
Author Name Unknown Organization [facility] Address [address] [place] [address] Phone [phone] Care Team Providers Care Life Skills Coordinator Name Role Phone Jaime Garcia MD Primary Care Provide r Reason for Visit * Reason Comments Chemotherapy DarzalexFaspro/Cytox an * Episode Based Medications (Routine) - Authorized Specialty Diagnoses / Procedures Referred By Contbianca t Referred To Contact Diagnoses Lambda light chain myeloma (HCC) AL amyloidosis (HCC) Procedures NV DARATUMUMAB, HYALURONIDASE NV CYCLOPHOSPHAMIDE 100 MG INJ Rosalio Amaral MD [facility] [place] [address] Anc Hem/Onc Scenesukhdeep Renae DEPT CLOSED - 07/26/23 [address] [place] [address] Referral ID Status Reason Start Date Expiration Date V isits Requested Visits Authorized [id number] Authorized 10/21/2023 10/21/[phone] Encounter Details Date Type Department Care Team (Latest Contact Info) Description 10/28/2023 9:00 AM EST Hem/Onc Treatment Hematology/Oncolog y Treatment, [place] [address] [place] [address] [place], Chair 4 Hem Onc Scenery [address] [place] [address] Lambda light chain myeloma (HCC)*; AL amyloidosis [...] than 7.0% ([facility]) Use as directed daily. Test once daily DxE11.9 100 Strip 03/02/20 Active LancetsIndication s:Type 2 diabetes mellitus with hemoglobin A1c goal of less than 7.0% ([facility]) Test once daily DxE11.9. 100 Each 5 03/02/20 21 Active Albuterol Sulfate HFA 108 (90 Base) MCG/ACT Inhalation Aerosol SolutionIndicatio ns:Acute bronchitis, antibiotics not indicated Inhale 2 Puffs by mouth every 6 hours as needed for Cough or Shortness of Breath. 54 g 1 06/30/20 21 Active Acyclovir 400 MG Oral Tablet (Zovirax)Indicati ons:Lambda light chain myeloma ([facility]) Take one tablet once daily 180 Tablet [...] Information Patient taking differently: 50 mcg Oral [id number], Reported on 04/14/2023 Finasteride 5 MG Oral [...] than 7.0% ([facility]) Take 2 Tablets by mouth in the morning. 180 Tablet 1 07/11/20 Active Pen [place] 32G X 4 MM Use as directed. [...] of insulin ([facility]) Use as directed to check blood sugars daily. 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,Paroxysma l atrial [...] without remission 06/14/2014 Overview: Dr Rodriges/ [facility] ADVANCE DIRECTIVE INFORMATION 10/13/2006 Overview: No, [...] Description 12/01/2023 8:40 AM EDT Anticoagulation Pharmacy, [address] [place] [address] [place] [address] 12/09/2023 3:30 PM EDT Telemedicine [facility] Tyree UGARTE [address] [facility] [place] [address] Rosalio Amaral MD [address] [facility] [place] [address] 12/15/2023 8:30 AM EDT Office Visit Cardiology, [facility] [address] [facility] [place] [address] Beth Gibbs CRNP [address] [place] [address] 12/29/2023 9:00 AM EDT Office Visit Otolaryngology [facility] [address] [place] [address] Haley Aguero PA-C [address] [place] [address] 01/06/2024 2:30 PM EDT [facility] Visit [facility] [place], [facility] [address] [place] [address] Sulma Seth, BOBBY [address] [place] [address] 03/08/2024 9:00 AM EDT Office Visit Cardiology [address] [place] [address] Tim Ruiz PA-C [address] [place] [address] 10/30/2024 1:45 PM EST Office Visit Urology, [facility] [address] [place] [address] Devyn [facility] [address] [place] [address] Health Maintenance Due Date Last Done Comments [...] Additional history exists CKD HGB USE SMARTSET 25399 11/13/202411/13, 11/14/2023, 10/28/2023, Additional history exists CKD PHOS USE SMARTSET 68433 11/13/2024/0 12/2023, 10/28/2023, 08/16/2023, Additional history exists [...] encounter Medical Devices Implanted Type Area Manager Poker Device Identifier Shelf Expiration Date Model / Serial / Lot Port Power Mri W/8fr Cath - [id number] Implanted:Qty: 1 on 09/26/2020 by Simone Michelle MD at [facility] Right: Chest CR BARD : PERIPHERAL VASCULAR 10/12/2021 [id number] / / [id number] Description:right IJ Lens Intraoc 19.0 - [id number] - [id number] Implanted:Qty: 1 on 02/03/2021 by Chris Sexton MD at [place] [facility] Right: Eye [employer] LOMB 09/11/2025 [id number] / [id number] / Lens Intraoc 19.0 - [id number] - [id number] Implanted:Qty: 1 on 02/24/2021 by Chris Sexton MD at [place] [facility] Left: Eye BA[employer]CH [employer] LOMB 10/12/2025 [id number] / [id number] / [id number] System Urolift - [id number] Implanted:Qty: 2 on 03/17/2023 by Devyn Paniagua MD at OR [facility] N/A: Urethra [employer] 11/18/2023 [id number] / / [id number] System Urolift - [id number] Implanted:Qty: 3 on 03/17/2023 by Devyn Paniagua MD at OR [facility] N/A: Urethra [employer] 11/03/2023 [id number] / / [id number] documented as of this encounter Procedures Procedure Name Priority Date/Time Associated Diagnosis Comments PHOSPHORUS STAT 10/28/2023 8:04 AM EST Multiple myeloma in relapse (HCC) documented in this encounter Results * PHOSPHORUS (10/28/2023 8:04 AM EST) Phosphorus 3.1 2.5 - 4.8 mg/dL 10/28/2023 10:09 AM EST [facility] 56-02 Blood Venous blood specimen / Unknown Venipuncture / Unknown 10/28/2023 8:04 AM EST 10/28/2023 9:56 AM EST Rosalio Amaral MD LAB BLOOD ORDERABLES [facility] [address] [place] [address] documented in this encounter Visit Diagnoses Diagnosis [...] AM EST 500 mg 500 mL/hr Daratumumab[facility]aluronida [facility] (Darzalex Faspro) 1800 mg-03267 units/ 15 ml subcut inj 15 mL, [...] and were consensually agreed upon. Care Teams Life Skills Coordinator Relationship Specialty Start Date End Date Jaime Garcia MD [address] [place] [address] [place] [phone] PCP - General Family Medicine 10/15/20 documented as of this encounter
--- OUTSIDE RECORDS SUMMARY | 2023-12-07 07:47 | External Medical Summary | Summary of Care ---
Author Name Unknown Organization [facility] Address [address] [place] [address] Phone [phone] Care Team Providers Care Ditch Repairer Name Role Phone Jaime Garcia MD Primary Care Provide r Reason for Visit * Reason Comments Dosage Adjustment In Person (Anticoag Cl inic) Encounter Details Date Type Department Care Team (Latest Contact Info) Description 12/01/2023 8:40 AM EDT Anticoagulation Pharmacy, [address] [place] [address] [place] [address] PAF (paroxysmal atrial fibrillation) ([facility])*; Anticoagulation management encounter; [facility] current use of anticoagulant therapy Allergies Active Allergy Reactions Criticality Noted Date Comments Atorvastatin Muscle pain High 03/30/2019 Ezetimibe Muscle pain High 01/25/2020 documented as of this encounter (statuses as of 12/01/2023) Medications Medication Sig Dispensed Refills Start Date End Date Status NSS 0.9 % SOLN with daratumumab 400 MG/20ML SOLN 16 mg/kgIndications:ev nadeem 4 weeks Administer intravenously every 14 days. 0 Active CPAP every night at bedtime. 0 Active oxygen IN GAS Use 2 L/min(Oxygen) as directed at bedtime. 1 Each 0 1 Active OneTouch Ultra Blue In Vitro Strip (Glucose Blood)Indications:T ype 2 diabetes mellitus with hemoglobin A1c goal of less than 7.0% ([facility]) Use as directed daily. Test once daily DxE11.9 100 Strip 5 1 Active LancetsIndications: Type 2 diabetes mellitus with hemoglobin A1c goal of less than 7.0% ([facility]) Test once daily DxE11.9. 100 Each 5 1 Active Albuterol Sulfate HFA 108 (90 Base) MCG/ACT Inhalation Aerosol SolutionIndications :Acute bronchitis, antibiotics not indicated Inhale 2 Puffs by mouth every 6 hours as needed for Cough or Shortness of Breath. 54 g 1 1 Active Acyclovir 400 MG Oral Tablet (Zovirax)Indication s:Lambda light chain myeloma ([facility]) Take one tablet once daily 180 Tablet 3 2 Active Hizentra 4 GM/20ML Subcutaneous Solution [...] 3 Active Dexamethasone 4 MG Oral Tablet (Decadron)Indicatio ns:Multiple myeloma not having achieved remission ([facility]) 5 tabs 2 times monthly 10 Tablet 5 3 Active Polyethylene Glycol 3350 17 GM Oral Packet Take 1 Packet by mouth daily as needed. 0 Active oxyCODONE-Acetamino phen 5-325 MG Oral Tablet (Percocet) Take 1 Tablet by mouth every 6 hours as needed for Pain, Severe. 10 Tablet 0 3 Active Levothyroxine Sodium 50 MCG Oral Tablet (Levoxyl) TAKE 1 TABLET BY MOUTH DAILY AT LEAST 30 MINUTES PRIOR TO FIRST MEAL OF THE DAY OR OTHER MEDICATIONS 90 Tablet 3 3 01/11/20 24 Active Additional Information Patient taking differently: 50 mcg Oral [id number], Reported on 04/14/2023 Finasteride 5 MG Oral Tablet (Proscar) TAKE 1 TABLET BY MOUTH IN THE MORNING 90 Tablet 3 3 04/11/20 24 Active DULoxetine HCl 20 MG Oral Capsule Delayed Release Particles (Cymbalta) Take 2 Capsules by mouth in the morning. 180 Capsule 1 3 Active Cholecalciferol 50 MCG (2000 UT) Oral TabletIndications:L ambda light chain myeloma (HCC),Multiple myeloma without remission (HCC) Take 50 mcg by mouth in the morning. 30 Tablet 5 3 Active Additional Information Patient taking differently: 150 mcgOral Daily(AM), Reported on 08/20/2023 Repatha SureClick 140 MG/ML Subcutaneous Solution Auto-injector (evolocumab)Indicat ions:Dyslipidemia, goal LDL below 70 INJECT 140MG (1 INJECTION) UNDER THE SKIN EVERY 14 DAYS. REMOVE FROM REFRIGERATOR 30 MINUTES PRIOR TO INJECTION 6 mL 3 3 06/14/20 24 Active metFORMIN HCl ER 500 MG Oral Tablet Extended Release 24 Hour (Glucophage XR)Indications:Type 2 diabetes mellitus with hemoglobin A1c goal of less than 7.0% ([facility]) Take 2 Tablets by mouth in the morning. 180 Tablet 1 3 Active Pen [place] 32G X 4 MM Use as directed. Inject Lantus once daily. 50 Each 3 3 Active Icosapent Ethyl 1 GM Oral Capsule (Vascepa)Indication s:Hyperlipidemia with target LDL less than 70 Take 2 Capsules by mouth 2 times a day with morning and evening meals. Swallow capsules whole, do not open or break. 360 Capsule 3 3 Active Folic Acid 400 MCG Oral TabletIndications:L ow folate TAKE ONE TABLET BY MOUTH IN THE MORNING 90 Tablet 1 3 08/26/20 24 Active Pantoprazole Sodium 20 MG Oral Tablet Delayed Release (Protonix)Indicatio ns:Gastroesophageal reflux disease without esophagitis TAKE ONE TABLET BY MOUTH EVERY DAY IN THE MORNING 90 Tablet 2 3 08/30/20 24 Active Dexcom G7 SensorIndications:T ype 2 diabetes mellitus with stage 3b chronic kidney disease, without long-term current use of insulin ([facility]) Use as directed to check blood sugars daily. Change every 10 days 9 Each 3 3 Active Midodrine HCl 10 MG Oral Tablet (Proamatine)Indicat ions:takes 1-3 tabs depending on bp as needed Take 2 tablet shortly before or upon rising in the morning, at midday, and in the late afternoon (not later than 6 PM) 600 Tablet 3 3 Active Nystatin 847954 UNIT/ML Mouth/Throat SuspensionIndicatio ns:Multiple myeloma in relapse ([facility]) Swish and swallow 5 mL in the morning and 5 mL at noon and 5 mL in the evening and 5 mL before bedtime. 60 mL 1 3 Active Additional Information Patient not taking.Reported on 10/04/2023 Vemlidy 25 MG Oral Tablet (Tenofovir Alafenamide Fumarate) Take 1 tablet by mouth in the morning. 90 Tablet 1 3 Active Ondansetron HCl 8 MG Oral Tablet (Zofran)Indications :Nausea Take 1 Tablet by mouth every 8 hours as needed for Nausea. 30 Tablet 3 4 Active Prochlorperazine Maleate 10 MG Oral Tablet (Compazine)Indicati ons:Nausea and vomiting, unspecified vomiting type Take 1 Tablet by mouth every 6 hours as needed for Nausea. 40 Tablet 0 4 Active Ondansetron 4 MG Oral Tablet Disintegrating (Zofran) 0 3 Active Potassium Chloride ER 20 MEQ Oral Tablet Extended Release Take 1 Tablet by mouth in the morning. 0 Active Advanced Probiotic 10 Oral Capsule 1 Capsule in the morning. 0 3 Active NSS 0.9 % SOLN 100 mL with cefTRIAXone 2 GM SOLR 2 g Administer 2 g intravenously daily. 0 Active Allopurinol 100 MG Oral Tablet (Zyloprim)Indicatio ns:Multiple myeloma in relapse (HCC) Take 1 Tablet by mouth in the morning. 30 Tablet 4 4 Active Warfarin Sodium 2.5 MG Oral Tablet (Coumadin)Indicatio ns:Atrial fibrillation, unspecified type (HCC),Anticoagulati on management encounter,[facility] current use of anticoagulant therapy,Paroxysmal atrial fibrillation (HCC) Take up to one tablet by mouth daily as directed by anticoagulation clinic 90 Tablet 3 4 Active Dapsone 25 MG Oral TabletIndications:M ultiple myeloma in relapse (HCC) TAKE ONE TABLET BY MOUTH EVERY DAY 90 Tablet 1 4 10/27/19 25 Active Magnesium Chloride 64 MG Oral Tablet Delayed Release (Mag64)Indications: Multiple myeloma in relapse (HCC) Take 1 Tablet by mouth in the morning and 1 Tablet before bedtime. 180 Tablet 3 4 Active Torsemide 10 MG Oral Tablet (Demadex)Indication s:takes extra tab for swelling, wt gain Take 1 Tablet by mouth in the morning. As needed.. 0 4 Active oxyCODONE HCl 5 MG Oral Tablet (Oxy IR)Indications:Mult iple myeloma in relapse (HCC) Take 1 Tablet by mouth every 4 hours as needed for breakthrough pain. 30 Tablet 0 4 Active documented as of this encounter (statuses as of 12/01/2023) Active Problems Problem Noted Date Diagnosed Date [...] myeloma without remission 06/14/2014 Overview: Dr Rodriges/ [facility] ADVANCE DIRECTIVE INFORMATION 10/13/2006 Overview: No, Advance Directive brochure offered , patient declined. Degeneration of lumbosacral intervertebral disc 02/19/2005 documented as of this encounter (statuses as of 12/01/2023) Resolved Problems Problem Noted Date Diagnosed Date [...] as of this encounter (statuses as of 12/01/2023) Immunizations Name Administration Dates Next Due COVID-19, [...] this encounter Progress Notes * Barbara Jiménez, [facility] - 12/01/2023 8:43 AM EDT Medication Therapy Disease Management - Anticoagulation Patient: Jerardo Ochoa Jr. | : 1970 Subjective Patient-Reported Symptoms: Patient Findings Negatives: Signs/symptoms of thrombosis, Signs/symptoms of bleeding, Change in health, Change in alcohol use, Change in activity, Upcoming invasive procedure, Missed doses, Extra doses, Change in medications, Change in diet/appetite, Bruising Objective Current Warfarin Dose As of 12/01/2023 Warfarin maintenance plan: 1.25 mg (2.5 mg x 0.5) every day INR Result As of 12/01/2023 INR goal: 2.0-3.0 INR used for dosin.1 (12/01/2023) Assessment & Plan Warfarin Plan As of 12/01/2023 Full warfarin instructions: 1.25 mg every day No change documented: Barbara Jiménez RPh Next INR check: 12/28/2023 Repeat PT/INR in 4 week(s) Weekly dose: not changed Additional Dosing Information: Description AMIO start 10/29/22 - 11/22/22 BID then QD after AMIO STOPPED 05/31 Barbara Jiménez [facility] Clinical Pharmacist 12/01/2023, 8:43 AM documented in this encounter Plan of Treatment Upcoming Encounters Date Type Department Care Team (Late st Contact Info) Description 12/09/2023 3:30 PM EDT Telemedicine [facility]ology [facility] Tyree UGARTE [address] [facility] [place] [address] Rosalio Amaral MD [address] [facility] [place] [address] 12/15/2023 8:30 AM EDT Office Visit Cardiology, [facility] [address] [place] [address] Beth Gibbs CRNP [address] [place] [address] 12/28/2023 9:50 AM EDT Anticoagulation Pharmacy, [address] [place] [address] [place] [address] 12/29/2023 9:00 AM EDT Office Visit Otolaryngology [facility] [address] [place] [address] Haley Aguero PA-C [address] [place] [address] 01/06/2024 2:30 PM EDT [facility], [facility] [address] [place] [address] Sulma Seth RN [address] [place] [address] 03/08/2024 9:00 AM EDT Office Visit Cardiology [address] [place] [address] Tim Ruiz PA-C [address] [place] [address] 10/30/2024 1:45 PM EST Office Visit Urology, [facility] [address] [place] [address] Devyn Paniagua MD [address] [place] [address] [place] [address] Health Maintenance Due Date Last Done Comments Cologuard 2015 Fecal Occult Blood Test 2015 Sigmoidoscopy 2015 COVID-19 Vaccine (3 - Pfizer risk series) 11/03/2021 10/06/2021, 06/23/2021 Depression Screening 01/05/2022 01/05/2021 Diabetic Foot Exam 12/14/2022 12/14/2021, 0 10/15/2020, 06/25/2019 HbA1c 01/05/2024 07/06/2023, 08/0 11/2022, 03/29/2023, Additional history exists GFR 05/16/2024 11/14/2023, 03/0 09/2023, 11/11/2023, Additional history exists Pneumococcal Vaccine: Pediatrics (0 to 5 Years) and At-Risk Patients (6 to 64 Years) (3 of 3 - PPSV23 or PCV20) 05/22/2024 05/13/2020, 05/22/2019 Diabetic Eye Exam 07/11/2024 07/11/2023, , 07/05/2022, Additional history exists TSH 07/25/2024 07/25/2023, 03/12, 01/31/2023, Additional history exists Albumin/Creatinine Ratio 09/08/2024 023, 06/22/2023, 05/27/2023, Additional history exists CKD HGB USE SMARTSET 34218 11/13/202411/13, 11/14/2023, 10/28/2023, Additional history exists CKD PHOS USE SMARTSET 70979 11/13/2024 03/0 12/2023, 10/28/2023, 08/16/2023, Additional history exists DTaP,Tdap,and [...] this encounter Medical Devices Implanted Type Area It Admin Device Identifier Shelf Expiration Date Model / Serial / Lot Port Power Mri W/8fr Cath - [id number] Implanted:Qty: 1 on 09/26/2020 by Simone Michelle MD at OR [facility] Right: Chest CR BARD : PERIPHERAL VASCULAR 10/12/2021 [id number] / / [id number] Description:right IJ Lens Intraoc 19.0 - [id number] - [id number] Implanted:Qty: 1 on 02/03/2021 by Chris Sexton MD at OR [facility] Right: Eye [employer]OMB 09/11/2025 [id number] / [id number] / Lens Intraoc 19.0 - [id number] - [id number] Implanted:Qty: 1 on 02/24/2021 by Chris Sexton MD at OR [facility] Left: Eye BAUSCH [employer] LOMB 10/12/2025 [id number] / [id number] System Urolift - [id number] Implanted:Qty: 2 on 03/17/2023 by Devyn Paniagua MD at OR [facility] N/A: Urethra [employer] 11/18/2023 [id number] / / [id number] System Urolift - [id number] Implanted:Qty: 3 on 03/17/2023 by Devyn Paniagua MD at OR [facility] N/A: Urethra [employer] 11/03/2023 [id number] / / [id number] documented as of this encounter Procedures Procedure Name Priority Date/Time Associated Diagnosis Comments INR FINGERSTICK, POINT OF CARE STAT 12/01/2023 8:50 AM EDT PAF (paroxysmal atrial fibrillation) (HCC) Anticoagulation management encounter [facility] current use of anticoagulant therapy documented in this encounter Results * INR FINGERSTICK, POINT OF CARE (12/01/2023 8:50 AM EDT) Fingerstick INR 2.1 INR 8:51 AM EDT [facility] [place] [employer]- Blood 12/01/2023 8:50 AM EDT 12/01/2023 8:51 AM EDT Narrative [facility] [place] [id number] - 12/01/2023 8:51 AM EDT Therapeutic ranges for non-operative patients: Prophylaxsis/treatment of DVT: (Range:2.0-3.0) Treatment of pulmonary embolism:(Range:2.0-3.0) Prevention of systemic embolism from: -tissue heart valves -acute myocardial infarction -valvular heart disease -atrial fibrillation (Range: 2.0-3.0) Mechanical prosthetic valves: (Range: 2.5-3.5) Barbara Jiménez [facility] LAB POINT OF CARE TEST DOCKED DEVICE UNSOLICITED RESULTS [facility] [place] [employer] [place] [address] [place] [address] documented in this encounter Visit Diagnoses Diagnosis PAF (paroxysmal atrial fibrillation) (HCC)- Primary Atrial fibrillation Anticoagulation management encounter Encounter for therapeutic drug monitoring [facility] current use of anticoagulant therapy documented in this encounter Additional Health Concerns [...] and were consensually agreed upon. Care Teams Ditch Repairer Relationship Specialty Start Date End Date Jaime Garcia MD [address] [place] [address] [place] [address] PCP - General Family Medicine 10/15/20 documented as of this encounter"
--- OUTSIDE RECORDS SUMMARY | 2023-12-07 07:48 | External Medical Summary | Summary of Care ---
Author Name Unknown Organization [facility] Address [address] [place] [address] Phone [phone] Care Team Providers Care Mix Technician Name Role Phone Jaime Garcia MD Primary Care Provide r Reason for Visit * Reason Comments Chemotherapy DarzalexFaspro/Cytox an * Episode Based Medications (Routine) - Authorized Specialty Diagnoses / Procedures Referred By Contbianca t Referred To Contact Diagnoses Lambda light chain myeloma (HCC) AL amyloidosis (HCC) Procedures [place] DARATUMUMAB, HYALURONIDASE [place] CYCLOPHOSPHAMIDE 100 MG INJ Rosalio Amaral MD [facility] [place] [address] Anc Hem/Onc Scenesukhdeep Renae DEPT CLOSED - 07/26/23 [address] [place] [address] Referral ID Status Reason Start Date Expiration Date V isits Requested Visits Authorized [id number] Authorized 10/21/2023 10/21/[phone] Encounter Details Date Type Department Care Team (Latest Contact Info) Description 10/28/2023 9:00 AM EST Hem/Onc Treatment Hematology/Oncolog y Treatment, [place] [address] [place] [address] Batool, Chair 4 Hem Onc Scenery [address] [place] [address] Lambda light chain myeloma (HCC)*; AL amyloidosis [...] hemoglobin A1c goal of less than 7.0% ([facility]) Use as directed daily. Test once daily DxE11.9 100 Strip 03/02/20 Active LancetsIndication s:Type 2 diabetes mellitus with hemoglobin A1c goal of less than 7.0% ([facility]) Test once daily DxE11.9. 100 Each 5 03/02/20 21 Active Albuterol Sulfate HFA 108 (90 Base) MCG/ACT Inhalation Aerosol SolutionIndicatio ns:Acute bronchitis, antibiotics not indicated Inhale 2 Puffs by mouth every 6 hours as needed for Cough or Shortness of Breath. 54 g 1 06/30/20 21 Active Acyclovir 400 MG Oral Tablet (Zovirax)Indicati ons:Lambda light chain myeloma ([facility]) Take one tablet once [...] Information Patient taking differently: 50 mcg Oral [id number], Reported on 04/14/2023 Finasteride 5 MG Oral [...] hemoglobin A1c goal of less than 7.0% ([facility]) Take 2 Tablets by mouth in the morning. 180 Tablet 1 07/11/20 Active Pen [place] 32G X 4 MM Use as directed. 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,Paroxysma l atrial [...] myeloma without remission 06/14/2014 Overview: Dr Rodriges/ [facility] ADVANCE DIRECTIVE INFORMATION 10/13/2006 [...] Description 12/01/2023 8:40 AM EDT Anticoagulation Pharmacy, [address] [place] [address] [place] [address] 12/09/2023 3:30 PM EDT Telemedicine [facility] Tyree UGARTE [address] [facility] [place] [address] Rosalio Amaral MD [address] [facility] [place] [address] 12/15/2023 8:30 AM EDT [facility] [place] [address] Beth Gibbs CRNP [address] [place] [address] 12/29/2023 9:00 AM EDT Office Visit Otol[facility] [address] [place] [address] Haley Aguero PA-C [address] [place] [address] 01/06/2024 2:30 PM EDT [facility] Visit [facility] [place], [facility] [address] [place] [address] Sulma Seth, BOBBY [address] [place] [address] 03/08/2024 9:00 AM EDT Office Visit Cardiology [address] [place] [address] Tim Ruiz PA-C [address] [place] [address] 10/30/2024 1:45 PM EST Office Visit Urology, [facility] [address] [place] [address] Devyn Paniagua MD [facility] [address] [place] [address] Health Maintenance Due Date Last Done Comments [...] Additional history exists CKD HGB USE SMARTSET 70543 11/13/202411/13, 11/14/2023, 10/28/2023, Additional history exists CKD PHOS USE SMARTSET 59413 11/13/2024/0 12/2023, 10/28/2023, 08/16/2023, Additional history exists [...] this encounter Medical Devices Implanted Type Area Bacteriology Research Assistant Device Identifier Shelf Expiration Date Model / Serial / Lot Port Power Mri W/8fr Cath - [id number] Implanted:Qty: 1 on 09/26/2020 by Simone Michelle MD at OR [facility] Right: Chest CR BARD : PERIPHERAL VASCULAR 10/12/2021 [id number] / / [id number] Description:right IJ Lens Intraoc 19.0 - [id number] - [id number] Implanted:Qty: 1 on 02/03/2021 by Chris Sexton MD at OR [facility] Right: Eye [employer]USCH [employer] LOMB 09/11/2025 [id number] / [id number] / Lens Intraoc 19.0 - [id number] - [id number] Implanted:Qty: 1 on 02/24/2021 by Chris Sexton MD at OR [facility] Left: Eye BAUSCH & LOMB 10/12/2025 [id number] / [id number] / [id number] System Urolift - [id number] Implanted:Qty: 2 on 03/17/2023 by Devyn Paniagua MD at OR [facility] N/A: Urethra [employer] 11/18/2023 [id number] / / [id number] System Urolift - [id number] Implanted:Qty: 3 on 03/17/2023 by Devyn Paniagua MD at OR [facility] N/A: Urethra [employer] 11/03/2023 [id number] / / [id number] documented as of this encounter Procedures Procedure Name Priority Date/Time Associated Diagnosis Comments PHOSPHORUS STAT 10/28/2023 8:04 AM EST Multiple myeloma in relapse (HCC) documented in this encounter Results * PHOSPHORUS (10/28/2023 8:04 AM EST) Phosphorus 3.1 2.5 - 4.8 mg/dL 10/28/2023 10:09 AM EST [facility] 56-02 Blood Venous blood specimen / Unknown Venipuncture / Unknown 10/28/2023 8:04 AM EST 10/28/2023 9:56 AM EST Rosalio Amaral MD LAB BLOOD ORDERABLES [facility] [address]- [address] [place] [address] documented in this encounter Visit Diagnoses Diagnosis [...] AM EST 500 mg 500 mL/hr Daratumumab-hyaluronida [facility] (Darzalex Faspro) 1800 mg-85684 units/ 15 ml subcut inj 15 mL, [...] and were consensually agreed upon. Care Teams Mix Technician Relationship Specialty Start Date End Date Jaime Garcia MD [address] [place] [address] [place] [phone] PCP - General Family Medicine 10/15/20 documented as of this encounter
--- OUTSIDE RECORDS SUMMARY | 2023-12-07 07:48 | External Medical Summary | Summary of Care ---
Author Name Unknown Organization [facility] Address [address] [place] [address] Phone [phone] Care Team Providers Care Code Enforcement Supervisor Name Role Phone Jaime Garcia MD Primary Care Provide r Reason for Visit * Reason Comments Chemotherapy DarzalexFaspro/Cytox an * Episode Based Medications (Routine) - Authorized Specialty Diagnoses / Procedures Referred By Contbianca t Referred To Contact Diagnoses Lambda light chain myeloma (HCC) AL amyloidosis (HCC) Procedures [place] DARATUMUMAB, HYALURONIDASE [place] CYCLOPHOSPHAMIDE 100 MG INJ Rosalio Amaral MD [facility] [place] [address] Anc Hem/Onc Scenesukhdeep Renae DEPT CLOSED - 07/26/23 [address] [place] [phone] Referral ID Status Reason Start Date Expiration Date V isits Requested Visits Authorized [id number] Authorized 10/21/2023 10/21/[phone] Encounter Details Date Type Department Care Team (Latest Contact Info) Description 10/28/2023 9:00 AM EST Hem/Onc Treatment Hematology/Oncolog y Treatment, [place] [address] [place] [address] [place], Chair 4 Hem Onc Scenery [address] [place] [address] Lambda light chain myeloma (HCC)*; AL amyloidosis [...] A1c goal of less than 7.0% ([facility]) Use as directed daily. Test once daily DxE11.9 100 Strip 03/02/20 Active LancetsIndication s:Type 2 diabetes mellitus with hemoglobin A1c goal of less than 7.0% ([facility]) Test once daily DxE11.9. 100 Each 5 03/02/20 21 Active Albuterol Sulfate HFA 108 (90 Base) MCG/ACT Inhalation Aerosol SolutionIndicatio ns:Acute bronchitis, antibiotics not indicated Inhale 2 Puffs by mouth every 6 hours as needed for Cough or Shortness of Breath. 54 g 1 06/30/20 21 Active Acyclovir 400 MG Oral Tablet (Zovirax)Indicati ons:Lambda light chain myeloma ([facility]) Take one tablet once daily 180 [...] Information Patient taking differently: 50 mcg Oral [id number], Reported on 04/14/2023 Finasteride 5 MG Oral [...] A1c goal of less than 7.0% ([facility]) Take 2 Tablets by mouth in the morning. 180 Tablet 1 07/11/20 Active Pen [place] 32G X 4 MM Use as directed. [...] without long-term current use of insulin ([facility]) Use as directed to check blood sugars daily. 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 [address] [place] [address] Beth Gibbs CRNP [address] [place] [address] 12/29/2023 9:00 AM EDT Office Visit Otolaryngology [facility] [address] [place] [address] Haley Aguero PA-C [address] [place] [address] 01/06/2024 2:30 PM EDT Home Visit [facility] [place], [facility] [address] [place] [address] Sulma Seth, BOBBY [address] [place] [address] 03/08/2024 9:00 AM EDT Office Visit Cardiology [address] [place] [address] Tim Ruiz PA-C [address] [place] [address] 10/30/2024 1:45 PM EST Office Visit Urology, [facility] [address] [place] [address] Devyn Paniagua MD [facility] [address] [place] [address] Health Maintenance Due Date Last Done Comments [...] Additional history exists CKD HGB USE SMARTSET 06763 11/13/202411/13, 11/14/2023, 10/28/2023, Additional history exists CKD PHOS USE SMARTSET 08474 11/13/2024/0 12/2023, 10/28/2023, 08/16/2023, Additional history exists [...] this encounter Medical Devices Implanted Type Area Band Machine Operator Device Identifier Shelf Expiration Date Model / Serial / Lot Port Power Mri W/8fr Cath - [id number] Implanted:Qty: 1 on 09/26/2020 by Simone Michelle MD at OR [facility] Right: Chest CR BARD : PERIPHERAL VASCULAR 10/12/2021 [id number] / / [id number] Description:right IJ Lens Intraoc 19.0 - [id number] - [id number] Implanted:Qty: 1 on 02/03/2021 by Chris Sexton MD at OR [facility] Right: Eye BAUSCH [employer] LOMB 09/11/2025 [id number] / [id number] / Lens Intraoc 19.0 - [id number] - [id number] Implanted:Qty: 1 on 02/24/2021 by Chris Sexton MD at OR [facility] Left: Eye BAUSCH [employer] LOMB 10/12/2025 [id number] / [id number] / [id number] System Urolift - [id number] Implanted:Qty: 2 on 03/17/2023 by Devyn Paniagua MD at OR [facility] N/A: Urethra [employer] 11/18/2023 JI807-3 / / [id number] System Urolift - [id number] Implanted:Qty: 3 on 03/17/2023 by Devyn Paniagua MD at OR [facility] N/A: Urethra [employer] 11/03/2023 KY035-4 / / [id number] documented as of this encounter Procedures Procedure Name Priority Date/Time Associated Diagnosis Comments PHOSPHORUS STAT 10/28/2023 8:04 AM EST Multiple myeloma in relapse (HCC) documented in this encounter Results * PHOSPHORUS (10/28/2023 8:04 AM EST) Phosphorus 3.1 2.5 - 4.8 mg/dL 10/28/2023 10:09 AM EST [facility] 56-02 Blood Venous blood specimen / Unknown Venipuncture / Unknown 10/28/2023 8:04 AM EST 10/28/2023 9:56 AM EST Rosalio Amaral MD LAB BLOOD ORDERABLES [facility] [address]- [address] [place] [address] documented in this encounter Visit Diagnoses Diagnosis [...] AM EST 500 mg 500 mL/hr Dar[facility] (Darzalex Faspro) 1800 mg-20375 units/ 15 ml subcut inj 15 mL, [...] were consensually agreed upon. Care Teams Code Enforcement Supervisor Relationship Specialty Start Date End Date Jaime Garcia MD [address] [place] [address] [place] [phone] PCP - General Family Medicine 10/15/20 documented as of this encounter
--- OUTSIDE RECORDS SUMMARY | 2023-12-07 07:48 | External Medical Summary | Summary of Care ---
Author Name Unknown Organization [facility] Address [address] [place] [address] Phone [phone] Care Team Providers Care Cardiology Fellow Name Role Phone Jaime Garcia MD Primary Care Provide r Reason for Visit * Reason Comments Chemotherapy DarzalexFaspro/Cytox an * Episode Based Medications (Routine) - Authorized Specialty Diagnoses / Procedures Referred By Contbianca t Referred To Contact Diagnoses Lambda light chain myeloma (HCC) AL amyloidosis (HCC) Procedures [place] DARATUMUMAB, HYALURONIDASE [place] CYCLOPHOSPHAMIDE 100 MG INJ Rosalio Amaral MD [facility] [address] [place] [address] Anc Hem/Onc Scenesukhdeep Renae DEPT CLOSED - 07/26/23 [address] [place] [address] Referral ID Status Reason Start Date Expiration Date V isits Requested Visits Authorized [id number] Authorized 10/21/2023 10/21/[phone] Encounter Details Date Type Department Care Team (Latest Contact Info) Description 10/28/2023 9:00 AM EST Hem/Onc Treatment Hematology/Oncolog y Treatment, [place] [address] [place] [address] [place], Chair 4 Hem Onc Scenery [address] [place] [address] Lambda light chain myeloma (HCC)*; AL amyloidosis [...] than 7.0% ([facility]) Use as directed daily. Test once daily [...] Oral Tablet (Zovirax)Indicati ons:Lambda light chain myeloma ([facility] [...] Information Patient taking differently: 50 mcg Oral [id number], Reported on 04/14/2023 Finasteride 5 MG Oral [...] morning. 180 Tablet 1 07/11/20 Active Pen [place] 32G X 4 MM Use as directed. [...] disease, without long-term current use of insulin ([facility]) Use as directed to check blood sugars daily. 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 [place] [address] Beth Gibbs CRNP [address] [place] [address] 12/29/2023 9:00 AM EDT Office Visit Otolaryngology [facility] [address] [place] [address] Haley Aguero PA-C [address] [place] [address] 01/06/2024 2:30 PM EDT [facility] Visit [facility] [place], [facility] [address] [place] [address] Sulma Seth, BOBBY [address] [place] [address] 03/08/2024 9:00 AM EDT Office Visit Cardiology [address] [place] [address] Tim Ruiz PA-C [address] [place] [address] 10/30/2024 1:45 PM EST Office Visit Urology, [facility] [address] [place] [address] Devyn [facility] [address] [place] [address] Health Maintenance Due Date Last Done Comments [...] Additional history exists CKD HGB USE SMARTSET 72625 11/13/202411/13, 11/14/2023, 10/28/2023, Additional history exists CKD PHOS USE SMARTSET 93469 11/13/2024/0 12/2023, 10/28/2023, 08/16/2023, Additional history exists [...] this encounter Medical Devices Implanted Type Area Subgrade Tester Device Identifier Shelf Expiration Date Model / Serial / Lot Port Power Mri W/8fr Cath - [id number] Implanted:Qty: 1 on 09/26/2020 by Simnoe Michelle MD at OR [facility] Right: Chest CR BARD : PERIPHERAL VASCULAR 10/12/2021 [id number] / / [id number] Description:right IJ Lens Intraoc 19.0 - [id number] - [id number] Implanted:Qty: 1 on 02/03/2021 by Chris Sexton MD at OR [facility] Right: Eye BAUSCH [employer] LOMB 09/11/2025 [id number] / [id number] / Lens Intraoc 19.0 - [id number] - [id number] Implanted:Qty: 1 on 02/24/2021 by Chris Sexton MD at OR [facility] Left: Eye BAUSCH [employer] LOMB 10/12/2025 [id number] / [id number] System Urolift - [id number] Implanted:Qty: 2 on 03/17/2023 by Devyn Paniagua MD at OR [facility] N/A: Urethra [employer] 11/18/2023 BZ989-0 / / [id number] System Urolift - [id number] Implanted:Qty: 3 on 03/17/2023 by Devyn Paniagua MD at OR [facility] N/A: Urethra [employer] 11/03/2023 YK772-6 / / [id number] documented as of this encounter Procedures Procedure Name Priority Date/Time Associated Diagnosis Comments PHOSPHORUS STAT 10/28/2023 8:04 AM EST Multiple myeloma in relapse (HCC) documented in this encounter Results * PHOSPHORUS (10/28/2023 8:04 AM EST) Phosphorus 3.1 2.5 - 4.8 mg/dL 10/28/2023 10:09 AM EST [facility] 56-02 Blood Venous blood specimen / Unknown Venipuncture / Unknown 10/28/2023 8:04 AM EST 10/28/2023 9:56 AM EST Rosalio Amaral MD LAB BLOOD ORDERABLES [facility] 56- [address] [place] [address] documented in this encounter Visit Diagnoses Diagnosis [...] AM EST 500 mg 500 mL/hr Daratumumab-hyaluronida se-[facility] by [facility] (Darzalex Faspro) 1800 mg-40568 units/ 15 ml subcut inj 15 mL, [...] and were consensually agreed upon. Care Teams Cardiology Fellow Relationship Specialty Start Date End Date Jaime Garcia MD [address] [place] [address] [place] [phone] PCP - General Family Medicine 10/15/20 documented as of this encounter
--- OUTSIDE RECORDS SUMMARY | 2023-12-07 07:48 | External Medical Summary | Summary of Care ---
Author Name Unknown Organization [facility] Address [address] [place] [address] Phone [phone] Care Team Providers Care Lockstitch Zipper Setter Name Role Phone Jaime Garcia MD Primary Care Provide r Reason for Visit * Reason Comments Chemotherapy DarzalexFaspro/Cytox an * Episode Based Medications (Routine) - Authorized Specialty Diagnoses / Procedures Referred By Contbianca t Referred To Contact Diagnoses Lambda light chain myeloma (HCC) AL amyloidosis (HCC) Procedures [place] DARATUMUMAB, HYALURONIDASE [place] CYCLOPHOSPHAMIDE 100 MG INJ Rosalio Amaral MD [facility] [place] [address] Anc Hem/Onc Scenesukhdeep Renae DEPT CLOSED - 07/26/23 [address] [place] [phone] Referral ID Status Reason Start Date Expiration Date V isits Requested Visits Authorized [id number] Authorized 10/21/2023 10/21/[phone] Encounter Details Date Type Department Care Team (Latest Contact Info) Description 10/28/2023 9:00 AM EST Hem/Onc Treatment Hematology/Oncolog y Treatment, [place] [address] [place] [address] [place], Chair 4 Hem Onc Scenery [address] [place] [address] Lambda light chain myeloma (HCC)*; AL amyloidosis [...] goal of less than 7.0% ([facility]) Use as directed daily. Test once daily DxE11.9 100 Strip 03/02/20 Active LancetsIndication s:Type 2 diabetes mellitus with hemoglobin A1c goal of less than 7.0% ([facility]) Test once daily DxE11.9. 100 Each 5 03/02/20 21 Active Albuterol Sulfate HFA 108 (90 Base) MCG/ACT Inhalation Aerosol SolutionIndicatio ns:Acute bronchitis, antibiotics not indicated Inhale 2 Puffs by mouth every 6 hours as needed for Cough or Shortness of Breath. 54 g 1 06/30/20 21 Active Acyclovir 400 MG Oral Tablet (Zovirax)Indicati ons:Lambda light chain myeloma ([facility]) Take one tablet once daily [...] Information Patient taking differently: 50 mcg Oral [id number], Reported on 04/14/2023 Finasteride 5 MG Oral [...] goal of less than 7.0% ([facility]) Take 2 Tablets by mouth in the morning. 180 Tablet 1 07/11/20 Active Pen [place] 32G X 4 MM Use as directed. 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 [place] [address] Beth Gibbs CRNP [address] [place] [address] 12/29/2023 9:00 AM EDT Office Visit Otolaryngology [facility] [address] [place] [address] Haley Aguero PA-C [address] [place] [address] 01/06/2024 2:30 PM EDT Home Visit [facility] [place], [facility] [address] [place] [address] Sulma Seth, BOBBY [address] [place] [address] 03/08/2024 9:00 AM EDT Office Visit Cardiology [address] [place] [address] Tim Ruiz PA-C [address] [place] [address] 10/30/2024 1:45 PM EST Office Visit Urology, [facility] [address] [place] [address] Devyn Paniagua MD [facility] [address] [place] [address] Health Maintenance Due Date Last Done Comments [...] Additional history exists CKD HGB USE SMARTSET 43498 11/13/202411/13, 11/14/2023, 10/28/2023, Additional history exists CKD PHOS USE SMARTSET 88783 11/13/2024/0 12/2023, 10/28/2023, 08/16/2023, Additional history exists [...] this encounter Medical Devices Implanted Type Area Record Label Intern Device Identifier Shelf Expiration Date Model / Serial / Lot Port Power Mri W/8fr Cath - [id number] Implanted:Qty: 1 on 09/26/2020 by Simone Michelle MD at OR [facility] Right: Chest CR BARD : PERIPHERAL VASCULAR 10/12/2021 [id number] / / [id number] Description:right IJ Lens Intraoc 19.0 - [id number] - [id number] Implanted:Qty: 1 on 02/03/2021 by Chris Sexton MD at OR [facility] Right: Eye [employer]CH [employer] LOMB 09/11/2025 [id number] / [id number] / Lens Intraoc 19.0 - [id number] - [id number] Implanted:Qty: 1 on 02/24/2021 by Chris Sexton MD at OR [facility] Left: Eye BAUSCH & LOMB 10/12/2025 [id number] / [id number] / [id number] System Urolift - [id number] Implanted:Qty: 2 on 03/17/2023 by Devyn Paniagua MD at OR [facility] N/A: Urethra [employer] 11/18/2023 [id number] / / [id number] System Urolift - [id number] Implanted:Qty: 3 on 03/17/2023 by Devyn Paniagua MD at OR [facility] N/A: Urethra [employer] 11/03/2023 [id number] / / [id number] documented as of this encounter Procedures Procedure Name Priority Date/Time Associated Diagnosis Comments PHOSPHORUS STAT 10/28/2023 8:04 AM EST Multiple myeloma in relapse (HCC) documented in this encounter Results * PHOSPHORUS (10/28/2023 8:04 AM EST) Phosphorus 3.1 2.5 - 4.8 mg/dL 10/28/2023 10:09 AM EST [facility] 56-02 Blood Venous blood specimen / Unknown Venipuncture / Unknown 10/28/2023 8:04 AM EST 10/28/2023 9:56 AM EST Rosalio Amaral MD LAB BLOOD ORDERABLES [facility] [address]- [address] [place] [address] documented in this encounter Visit Diagnoses Diagnosis [...] AM EST 500 mg 500 mL/hr Daratumumab-[facility]aluronida [facility] (Darzalex Faspro) 1800 mg-12229 units/ 15 ml subcut inj 15 mL, [...] and were consensually agreed upon. Care Teams Lockstitch Zipper Setter Relationship Specialty Start Date End Date Jaime Garcia MD [address] [place] [address] [place] [phone] PCP - General Family Medicine 10/15/20 documented as of this encounter
--- OUTSIDE RECORDS SUMMARY | 2023-12-07 07:48 | External Medical Summary | Summary of Care ---
Author Name Unknown Organization [facility] Address [address] [place] [address] Phone [phone] Care Team Providers Care Plasma Processing Technician Name Role Phone Jaime Garcia MD Primary Care Provide r Reason for Visit * Reason Comments Chemotherapy DarzalexFaspro/Cytox an * Episode Based Medications (Routine) - Authorized Specialty Diagnoses / Procedures Referred By Contbianca t Referred To Contact Diagnoses Lambda light chain myeloma (HCC) AL amyloidosis (HCC) Procedures [place] DARATUMUMAB, HYALURONIDASE [place] CYCLOPHOSPHAMIDE 100 MG INJ Rosalio Amaral MD [facility] [place] [address] Anc Hem/Onc Scenesukhdeep Renae DEPT CLOSED - 07/26/23 [address] [place] [address] Referral ID Status Reason Start Date Expiration Date V isits Requested Visits Authorized [id number] Authorized 10/21/2023 10/21/[phone] Encounter Details Date Type Department Care Team (Latest Contact Info) Description 10/28/2023 9:00 AM EST Hem/Onc Treatment Hematology/Oncolog y Treatment, [place] [address] [place] [address] [place], Chair 4 Hem Onc Scenery [address] [place] [address] Lambda light chain myeloma (HCC)*; AL amyloidosis [...] hemoglobin A1c goal of less than 7.0% ([facility]) Use as directed daily. Test once daily DxE11.9 100 Strip 03/02/20 Active LancetsIndication s:Type 2 diabetes mellitus with hemoglobin A1c goal of less than 7.0% ([facility]) Test once daily DxE11.9. 100 Each 5 03/02/20 21 Active Albuterol Sulfate HFA 108 (90 Base) MCG/ACT Inhalation Aerosol SolutionIndicatio ns:Acute bronchitis, antibiotics not indicated Inhale 2 Puffs by mouth every 6 hours as needed for Cough or Shortness of Breath. 54 g 1 06/30/20 21 Active Acyclovir 400 MG Oral Tablet (Zovirax)Indicati ons:Lambda light chain myeloma ([facility]) Take one tablet once daily 180 Tablet [...] Information Patient taking differently: 50 mcg Oral [id number], Reported on 04/14/2023 Finasteride 5 MG Oral [...] hemoglobin A1c goal of less than 7.0% ([facility]) Take 2 Tablets by mouth in the morning. 180 Tablet 1 07/11/20 Active Pen [place] 32G X 4 MM Use as directed. [...] disease, without long-term current use of insulin ([facility]) Use as directed to check blood sugars daily. 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,Paroxysma l atrial [...] myeloma without remission 06/14/2014 Overview: Dr Rodriges/ [facility] ADVANCE DIRECTIVE INFORMATION 10/13/2006 Overview: [...] Description 12/01/2023 8:40 AM EDT Anticoagulation Pharmacy, [address] [place] [address] [place] [address] 12/09/2023 3:30 PM EDT Telemedicine Hematology [facility] Tyree UGARTE [address] [facility] [place] [address] Rosalio Amaral MD [address] [facility] [place] [address] 12/15/2023 8:30 AM EDT Office Visit Cardiology, [facility] [place] [address] Beth Gibbs CRNP [address] [place] [address] 12/29/2023 9:00 AM EDT Office Visit Otolaryngology [facility] [address] [place] [address] Haley Aguero PA-C [address] [place] [address] 01/06/2024 2:30 PM EDT Home Visit [facility] [place], [facility] [address] [place] [address] Sulma Seth, BOBBY [address] [place] [address] 03/08/2024 9:00 AM EDT Office Visit Cardiology [address] [place] [address] Tim Ruiz PA-C [address] [place] [address] 10/30/2024 1:45 PM EST Office Visit Urology, [facility] [address] [place] [address] Devyn Paniagua MD [facility] [address] [place] [address] Health Maintenance Due Date Last Done Comments [...] Additional history exists CKD HGB USE SMARTSET 22442 11/13/202411/13, 11/14/2023, 10/28/2023, Additional history exists CKD PHOS USE SMARTSET 88962 11/13/2024/0 12/2023, 10/28/2023, 08/16/2023, Additional history exists [...] this encounter Medical Devices Implanted Type Area Liability Claims Adjuster Device Identifier Shelf Expiration Date Model / Serial / Lot Port Power Mri W/8fr Cath - [id number] Implanted:Qty: 1 on 09/26/2020 by Simone Michelle MD at OR [facility] Right: Chest CR BARD : PERIPHERAL VASCULAR 10/12/2021 [id number] / / [id number] Description:right IJ Lens Intraoc 19.0 - [id number] - [id number] Implanted:Qty: 1 on 02/03/2021 by Chris Sexton MD at OR [facility] Right: Eye [employer]USCH [employer] LOMB 09/11/2025 [id number] / [id number] / Lens Intraoc 19.0 - [id number] - [id number] Implanted:Qty: 1 on 02/24/2021 by Chris Sexton MD at OR [facility] Left: Eye BAUSCH [employer] LOMB 10/12/2025 [id number] / [id number] System Urolift - [id number] Implanted:Qty: 2 on 03/17/2023 by Devyn Paniagua MD at OR [facility] N/A: Urethra [employer] 11/18/2023 [id number] / / [id number] System Urolift - [id number] Implanted:Qty: 3 on 03/17/2023 by Devyn Paniagua MD at OR [facility] N/A: Urethra [employer] 11/03/2023 [id number] / / [id number] documented as of this encounter Procedures Procedure Name Priority Date/Time Associated Diagnosis Comments PHOSPHORUS STAT 10/28/2023 8:04 AM EST Multiple myeloma in relapse (HCC) documented in this encounter Results * PHOSPHORUS (10/28/2023 8:04 AM EST) Phosphorus 3.1 2.5 - 4.8 mg/dL 10/28/2023 10:09 AM EST [facility] 56-02 Blood Venous blood specimen / Unknown Venipuncture / Unknown 10/28/2023 8:04 AM EST 10/28/2023 9:56 AM EST Rosalio Amaral MD LAB BLOOD ORDERABLES [facility] 56- [address] [place] [address] documented in this encounter Visit Diagnoses Diagnosis [...] AM EST 500 mg 500 mL/hr Dar[facility]ida [facility] (Darzalex Faspro) 1800 mg-35099 units/ 15 ml subcut inj 15 mL, [...] and were consensually agreed upon. Care Teams Plasma Processing Technician Relationship Specialty Start Date End Date Jaime Garcia MD [address] [place] [address] [place] [phone] PCP - General Family Medicine 10/15/20 documented as of this encounter
--- OUTSIDE RECORDS SUMMARY | 2023-12-07 07:49 | External Medical Summary ---
Author Name Unknown Address Unknown Organization K01:[facility] [address] [place] [address] Laboratory Report Ordering Provider Test Date Status NEERAJ WALTON 11/24/2023 11:43:41 Final Observation Date Value Abnormality Reference (Units ) Status Hep B surface Ag 11/24/2023 11:43:41 Negative Neg ative Final Performing Location [facility] - [address] [place] [address]
--- OUTSIDE RECORDS SUMMARY | 2023-12-07 07:49 | External Medical Summary | Summary of Care ---
Author Name Unknown Organization [facility] Address [address] [place] [address] Phone [phone] Care Team Providers Care Ergonomics Consultant Name Role Phone Jaime Garcia MD Primary Care Provide r Reason for Visit * Reason Comments Outpatient Testing Encounter Details Date Type Department Care Team (Late st Contact Info) Description 11/24/2023 10:50 AM EDT Laboratory Laboratory [address] [place] [phone] [place] [address] [employer] Other*[id number]; Multiple myeloma (HCC) Allergies Active Allergy Reactions Criticality Noted Date Comments Atorvastatin Muscle pain High 03/30/2019 Ezetimibe Muscle pain High 01/25/2020 documented as of this encounter (statuses as of 11/24/2023) Medications Medication Sig Dispensed Refills Start Date End Date Status NSS 0.9 % SOLN with daratumumab 400 MG/20ML SOLN 16 mg/kgIndications:rj silver 4 weeks Administer intravenously every 14 days. 0 Active CPAP every night at bedtime. 0 Active oxygen IN GAS Use 2 L/min(Oxygen) as directed at bedtime. 1 Each 0 1 Active OneTouch Ultra Blue In Vitro Strip (Glucose Blood)Indications:T ype 2 diabetes mellitus with hemoglobin A1c goal of less than 7.0% ([facility]) Use as directed daily. Test once daily DxE11.9 100 Strip 5 1 Active LancetsIndications: Type 2 diabetes mellitus with hemoglobin A1c goal of less than 7.0% ([facility]) Test once daily DxE11.9. 100 Each 5 1 Active Albuterol Sulfate HFA 108 (90 Base) MCG/ACT Inhalation Aerosol SolutionIndications :Acute bronchitis, antibiotics not indicated Inhale 2 Puffs by mouth every 6 hours as needed for Cough or Shortness of Breath. 54 g 1 1 Active Acyclovir 400 MG Oral Tablet (Zovirax)Indication s:Lambda light chain myeloma ([facility]) Take one tablet once daily 180 Tablet [...] (Decadron)Indicatio ns:Multiple myeloma not having achieved remission ([facility]) 5 tabs 2 times monthly 10 Tablet [...] Information Patient taking differently: 50 mcg Oral [id number], Reported on 04/14/2023 Finasteride 5 MG Oral [...] morning. 180 Tablet 1 3 Active Pen [place] 32G X 4 MM Use as directed. [...] disease, without long-term current use of insulin ([facility]) Use as directed to check blood sugars daily. 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 Degeneration of lumbosacral intervertebral disc 02/19/2005 documented as of this encounter (statuses as of 11/24/2023) Resolved Problems Problem Noted Date Diagnosed Date [...] as of this encounter (statuses as of 11/24/2023) Immunizations Name Administration Dates Next Due COVID-19, [...] Care Team (Late st Contact Info) Description 11/29/2023 7:50 AM EDT [facility] [address] [place] [phone] [place] Lab [facility] [address] [facility] [place] [address] 11/29/2023 9:00 AM EDT Hem/Onc Treatment Hematology/Oncology Treatment, [place] [address] [place] [phone] [place], Chair 10 Hem Onc Scenery [address] [place] [address] 11/29/2023 5:30 PM EDT Anticoagulation Pharmacy, [address] [place] [address] [place] [address] 12/09/2023 3:30 PM EDT Telemedicine H[facility]ology [facility] Tyree UGARTE [address] [facility] [place] [address] Rosalio Amaral MD [address] [place] [address] 12/15/2023 8:30 AM EDT Office Visit Cardiology, [facility] [address] [place] [address] Beth Gibbs CRNP [address] [place] [address] 12/29/2023 9:00 AM EDT Office Visit Otolaryngology [facility] [address] [place] [address] Haley Aguero PA-C [address] [place] [address] 01/06/2024 2:30 PM EDT Home Visit [facility] [address] [place] [address] Sulma Seth, BOBBY [address] [place] [address] 03/08/2024 9:00 AM EDT Office Visit Cardiology [address] [place] [address] Tim Ruiz PA-C [address] [place] [address] 10/30/2024 1:45 PM EST Office Visit Urology, [facility] [address] [place] [address] Devyn Paniagua MD [address] [facility] [address] [place] [address] Pending Results Name Type Priority Associated Diagnoses Date /Time MYCODE INITIAL ADULT Lab Routine [employer] Other*[id number] 11/24/2023 11:43 AM EDT HEPATITIS B SURFACE ANTIGEN Lab Routine Multiple myeloma (HCC) 11/24/2023 11:43 AM EDT HEPATITIS C ANTIBODY SCREEN WITH PROGRESSION TO HEPATITIS C RNA QUANTITATIVE Lab Routine Multiple myeloma (HCC) 11/24/2023 11:43 AM EDT HIV ANTIGEN & ANTIBODY SCREEN W/ CONFIRMATION Lab Routine Multiple myeloma (HCC) 11/24/2023 11:43 AM EDT CYTOMEGALOVIRUS DNA, QUANTITATIVE REAL-TIME PCR Lab Routine Multiple myeloma (HCC) 11/24/2023 11:43 AM EDT CMV IGG ANTIBODY Lab Routine Multiple myeloma (HCC) 11/24/2023 11:43 AM EDT BENJAMIN-GARCIA VIRUS DNA, QUANTITATIVE REAL-TIME PCR Lab Routine Multiple myeloma (HCC) 11/24/2023 11:43 AM EDT HEPATITIS B CORE ANTIBODIES IGG AND IGM Lab Routine Multiple myeloma (HCC) 11/24/2023 11:43 AM EDT HEPATITIS B CORE ANTIBODY IGM Lab Routine Multiple myeloma (HCC) 11/24/2023 11:43 AM EDT HEPATITIS B SURFACE ANTIBODY Lab Routine Multiple myeloma (HCC) 11/24/2023 11:43 AM EDT MYCODE INITIAL ADULT-PINK Lab Routine [employer] Other*[id number] 11/24/2023 11:43 AM EDT MYCODE SST1 Lab Routine [employer] Other*[id number] 11/24/2023 11:43 AM EDT MYCODE SST2 Lab Routine [employer] Other*[id number] 11/24/2023 11:43 AM EDT HEPATITIS C ANTIBODY Lab Routine Multiple myeloma (HCC) 11/24/2023 11:43 AM EDT HEPATITIS C RNA ADD ON Lab Routine Multiple myeloma (HCC) 11/24/2023 11:43 AM EDT Health Maintenance Due Date Last [...] 03/12, 01/31/2023, Additional history exists Albumin/Creatinine Ratio 09/08/202409/08/ 023, 06/22/2023, 05/27/2023, Additional history exists CKD HGB USE SMARTSET 66650 11/13/202411/13, 11/14/2023, 10/28/2023, Additional history exists CKD PHOS USE SMARTSET 03935 11/13/2024 03/0 12/2023, 10/28/2023, 08/16/2023, Additional history [...] this encounter Medical Devices Implanted Type Area Fugitive Investigator Device Identifier Shelf Expiration Date Model / Serial / Lot Port Power Mri W/8fr Cath - [id number] Implanted:Qty: 1 on 09/26/2020 by Simone Michelle MD at OR [facility] Right: Chest CR BARD : PERIPHERAL VASCULAR 10/12/2021 [id number] / / [id number] Description:right IJ Lens Intraoc 19.0 - [id number] - [id number] Implanted:Qty: 1 on 02/03/2021 by Chris Sexton MD at OR [facility] Right: Eye [employer]OM[employer] 09/11/2025 [id number] / [id number] / Lens Intraoc 19.0 - [id number] - [id number] Implanted:Qty: 1 on 02/24/2021 by Chris Sexton MD at OR [facility] Left: Eye BAUSCH [employer] LOMB 10/12/2025 [id number] / [id number] / [id number] System Urolift - [id number] Implanted:Qty: 2 on 03/17/2023 by Devyn Paniagua MD at OR [facility] N/A: Urethra [employer] 11/18/2023 [id number] / / [id number] System Urolift - [id number] Implanted:Qty: 3 on 03/17/2023 by Devyn Paniagua MD at OR [facility] N/A: Urethra [employer] 11/03/2023 [id number] / / [id number] documented as of this encounter Visit Diagnoses Diagnosis [employer] Other*[id number] Multiple myeloma (HCC) Multiple myeloma, without mention of having achieved remission documented in this encounter Additional Health Concerns [...] and were consensually agreed upon. Care Teams Ergonomics Consultant Relationship Specialty Start Date End Date Jaime Garcia MD [address] [place] [address] [place] [phone] PCP - General Family Medicine 10/15/20 documented as of this encounter
--- OUTSIDE RECORDS SUMMARY | 2023-12-07 07:49 | External Medical Summary ---
Author Name Unknown Address Unknown Organization K01:[facility] [place] [address] [place] [address] Laboratory Report Ordering Provider Test Date Status MENA MURCIA 11/24/2023 11:43:41 Final Observation Date Value Abnormality Reference (Units ) Status MYCODE SPECIMEN-SST 11/24/2023 11:43:41 Freezing of extracted DNA, whole blood and/or serum. Final Performing Location LABORATORY C - [address] [place] [address]
--- OUTSIDE RECORDS SUMMARY | 2023-12-07 07:49 | External Medical Summary | Summary of Care ---
Author Name Unknown Organization [facility] Address [address] [place] [address] Phone [phone] Care Team Providers Care Outdoor Studies Professor Name Role Phone Jaime Garcia MD Primary Care Provide r Encounter Details Date Type Department Care Team (Late st Contact Info) Description 11/28/2023 Orders Only Outcomes Research Department [address] [place] [address] Candy Koch CHRA [employer] [facility] Other*[id number] Allergies Active Allergy Reactions Criticality Noted Date Comments Atorvastatin Muscle pain High 03/30/2019 Ezetimibe Muscle pain High 01/25/2020 documented as of this encounter (statuses as of 11/28/2023) Medications Medication Sig Dispensed Refills Start Date [...] Oral Tablet (Zovirax)Indication s:Lambda light chain myeloma ([facility]) Take one tablet once daily [...] (Decadron)Indicatio ns:Multiple myeloma not having achieved remission ([facility]) 5 tabs 2 times monthly 10 Tablet [...] Information Patient taking differently: 50 mcg Oral [id number], Reported on 04/14/2023 Finasteride 5 MG Oral [...] morning. 180 Tablet 1 3 Active Pen [place] 32G X 4 MM Use as directed. 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 Degeneration of lumbosacral intervertebral disc 02/19/2005 documented as of this encounter (statuses as of 11/28/2023) Resolved Problems Problem Noted Date Diagnosed Date [...] as of this encounter (statuses as of 11/28/2023) Immunizations Name Administration Dates Next Due COVID-19, [...] Description 11/29/2023 7:50 AM EDT Laboratory Laboratory [facility] [place] [address] [place] [phone] [facility] [place] [address] [place] [address] 11/29/2023 9:00 AM EDT Hem/Onc Treatment Hematology/Oncology Treatment, [place] [address] [place] [phone] [place], Chair [address] Hem Onc Scen[address] [place] [address] 11/29/2023 5:30 PM EDT Anticoagulation Pharmacy, [address] [place] [address] [place] [address] 12/09/2023 3:30 PM EDT Telemedicine [facility] Tyree UGARTE [address] [facility] [place] [address] Rosalio Amaral MD [address] [facility] [place] [address] 12/15/2023 8:30 AM EDT Office Visit Cardiology, [facility] [place] [address] Beth Gibbs CRNP [address] [place] [address] 12/29/2023 9:00 AM EDT Office Visit Otolaryngology [facility] [place] [address] Haley Aguero PA-C [address] [place] [address] 01/06/2024 2:30 PM EDT Home Visit [facility] [address] [place] [address] Sulma Seth, BOBBY [address] [place] [address] 03/08/2024 9:00 AM EDT Office Visit Cardiology [address] [place] [address] Tim Ruiz PA-C [address] [place] [address] 10/30/2024 1:45 PM EST Office Visit Urology, [facility] [address] [facility] [place] [address] Devyn Paniagua MD [address] [address] [place] [phone] Scheduled Orders Name Type Priority Associated Diagnoses Orde r Schedule MYCODE SUBSEQUENT ADULT Lab Routine My[facility] Research Other*[id number] Every 6 Months for 2 Occurrences starting 11/28/2023 until 12/17/2024 Health Maintenance Due Date Last Done Comments [...] 03/12, 01/31/2023, Additional history exists Albumin/Creatinine Ratio 09/08/202409/08/2 023, 06/22/2023, 05/27/2023, Additional history exists CKD HGB USE SMARTSET 35623 11/13/202411/13, 11/14/2023, 10/28/2023, Additional history exists CKD PHOS USE SMARTSET 64102 11/13/2024 03/0 12/2023, 10/28/2023, 08/16/2023, Additional history [...] encounter Medical Devices Implanted Type Area Retail Representative Device Identifier Shelf Expiration Date Model / Serial / Lot Port Power Mri W/8fr Cath - [id number] Implanted:Qty: 1 on 09/26/2020 by Simone Michelle MD at OR [facility] Right: Chest CR BARD : PERIPHERAL VASCULAR 10/12/2021 [id number] / / [id number] Description:right IJ Lens Intraoc 19.0 - [id number] - [id number] Implanted:Qty: 1 on 02/03/2021 by Chris Sexton MD at OR [facility] Right: Eye BAUSCH & LOMB 09/11/2025 [id number] / [id number] / Lens Intraoc 19.0 - [id number] - [id number] Implanted:Qty: 1 on 02/24/2021 by Chris Sexton MD at OR [facility] Left: Eye BAUSCH & LOMB 10/12/2025 [id number] / [id number] System Urolift - [id number] Implanted:Qty: 2 on 03/17/2023 by Devyn Paniagua MD at OR [facility] N/A: Urethra [employer] 11/18/2023 [id number] / / [id number] System Urolift - [id number] Implanted:Qty: 3 on 03/17/2023 by Devyn Paniagua MD at OR [facility] N/A: Urethra [employer] 11/03/2023 [id number] / / [id number] documented as of this encounter Visit Diagnoses Diagnosis My[facility] Research Other*[id number] documented in this encounter Additional Health Concerns [...] and were consensually agreed upon. Care Teams Outdoor Studies Professor Relationship Specialty Start Date End Date Jamie Garcia MD [address] [place] [address] [place] [phone] PCP - General Family Medicine 10/15/20 documented as of this encounter
--- OUTSIDE RECORDS SUMMARY | 2023-12-07 07:49 | External Medical Summary ---
Author Name Unknown Address Unknown Organization K01:LABORATORY [facility] - [address] [place] [address] Laboratory Report Ordering Provider Test Date Status MENA MURCIA 11/24/2023 11:43:41 Final Observation Date Value Abnormality Reference (Units ) Status MYCODE SPECIMEN-SST 11/24/2023 11:43:41 Freezing of extracted DNA, whole blood and/or serum. Final Performing Location LABORATORY C - [address] [place] [address]
--- OUTSIDE RECORDS SUMMARY | 2023-12-07 07:49 | External Medical Summary ---
Author Name Unknown Address Unknown Organization K01:LABORATORY [place] - [address] [facility] [place] [address] Laboratory Report Ordering Provider Test Date Status NEERAJ WALTON 11/24/2023 11:43:41 Final Observation Date Value Abnormality Reference (Units ) Status CMV IgG 11/24/2023 11:43:41 Negative Negative Final Performing Location LABORATORY [facility] - [address] [place] [address]
--- OUTSIDE RECORDS SUMMARY | 2023-12-07 07:49 | External Medical Summary ---
Author Name Unknown Address Unknown Organization K01:LAB[facility]ATORY [facility] - [address] [place] [address] Laboratory Report Ordering Provider Test Date Status MENA MURCIA 11/24/2023 11:43:41 Final Observation Date Value Abnormality Reference (Units ) Status MYCRUPESH SPECIMEN-LAV 11/24/2023 11:43:41 Freezing of extracted DNA, whole blood and/or serum. Final Performing Location LABORATORY [facility] - [address] [place] [address]
--- OUTSIDE RECORDS SUMMARY | 2023-12-07 07:49 | External Medical Summary ---
Author Name Unknown Address Unknown Organization K01:LABORATORY [facility] - [address] [place] [address] Laboratory Report Ordering Provider Test Date Status NEERAJ WALTON 11/24/2023 11:43:41 Final Observation Date Value Abnormality Reference (Units ) Status Hep C Ab 11/24/2023 11:43:41 Negative Negative Final Further HCV quantitative kadeem ting not performed per protocol. Performing Location LABORATORY [facility] - [address] [place] [address]
--- OUTSIDE RECORDS SUMMARY | 2023-12-07 07:49 | External Medical Summary ---
Author Name Unknown Address Unknown Organization : Laboratory Report Ordering Provider Test Date Status MARC WALTONJOSE 11/24/2023 11:43:41 Final Observation Date Value Abnormality Reference (Units ) Status Source 11/24/2023 11:43:41 Whole Blood Final EBV DNA 11/24/2023 11:43:41 Not Detected (copies /mL) Final EBV DNA 11/24/2023 11:43:41 Not Detected (Log cp s/mL) Final Reference Range: Not Detecte d
For additional information, please refer to
http://education.Kodkod/faq/CMVandEBVPCR
(This link is being provided for informational/
educational purposes only.)
This test was developed and its analytical performance
characteristics have been determined by [facility] [place]. It has
not been cleared or approved by the U.S. Food and Drug
Administration. This assay has been validated pursuant
to the CLIA regulations and is used for clinical
purposes.

Test Performed at:
[facility] [place]
[address] [facility]
[place], [place] [address]
Aron Lopez M.D., Ph.D.,Director of Laboratories Performing Location
--- OUTSIDE RECORDS SUMMARY | 2023-12-07 07:49 | External Medical Summary ---
Author Name Unknown Address Unknown Organization K01:LABORATORY [place] [address] [place] [address] Laboratory Report Ordering Provider Test Date Status NEERAJ WALTON 11/24/2023 11:43:41 Final Observation Date Value Abnormality Reference (Units) Status Hepatitis B virus surface Ab [Units/volume] in Serum or Plasma by Immunoassay 11/24/2023 11:43:41 35.9 (mIU/mL) Final Hepatitis B virus surface Ab [Presence] in Serum by Immunoassay 11/24/2023 11:43:41 Positive Final HEPATITIS B SURFACE ANTIBODY, INTERPRETATION 11/24/2023 11:43:41 Immune to Hepatitis B Virus Final POSITIVE: >=11.5 mIU/mL
INDETERMINATE: 8.5-<11.5 mIU/mL
NEGATIVE: <8.5 mIU/mL Performing Location LABORATORY [place] [address] [place] [address]
--- OUTSIDE RECORDS SUMMARY | 2023-12-07 07:49 | External Medical Summary | Summary of Care ---
Author Name Unknown Organization [facility] Address [address] [place] [address] Phone [phone] Care Team Providers Care Manager Of Program Name Role Phone Jaime Garcia MD Primary Care Provide r Reason for Visit * Reason Comments Outpatient Testing Encounter Details Date Type Department Care Team (Late st Contact Info) Description 11/24/2023 10:50 AM EDT Laboratory Laboratory [address] [place] [phone] [place] [address] [facility] [facility] Other*[id number]; Multiple myeloma (HCC) Allergies Active Allergy Reactions [...] than 7.0% ([facility]) Use as directed daily. Test once daily DxE11.9 100 Strip 5 1 Active LancetsIndications: Type 2 diabetes mellitus with hemoglobin A1c goal of less than 7.0% ([facility]) Test once daily DxE11.9. 100 Each 5 1 Active Albuterol Sulfate HFA 108 (90 Base) MCG/ACT Inhalation Aerosol SolutionIndications :Acute bronchitis, antibiotics not indicated Inhale 2 Puffs by mouth every 6 hours as needed for Cough or Shortness of Breath. 54 g 1 1 Active Acyclovir 400 MG Oral Tablet (Zovirax)Indication s:Lambda light chain myeloma ([facility]) Take one tablet once daily 180 Tablet [...] (Decadron)Indicatio ns:Multiple myeloma not having achieved remission ([facility]) 5 tabs 2 times monthly 10 Tablet [...] Information Patient taking differently: 50 mcg Oral [id number], Reported on 04/14/2023 Finasteride 5 MG Oral [...] morning. 180 Tablet 1 3 Active Pen [place] 32G X 4 MM Use as directed. [...] of insulin ([facility]) Use as directed to check blood sugars daily. Change every 10 days 9 Each 3 3 Active Midodrine HCl 10 MG Oral Tablet (Proamatine)Indicat ions:takes 1-3 tabs depending on bp as needed Take 2 tablet shortly before or upon rising in the morning, at midday, and in the late afternoon (not later than 6 PM) 600 Tablet 3 3 Active Nystatin 502752 UNIT/ML Mouth/Throat SuspensionIndicatio ns:Multiple myeloma in relapse [...] ns:Atrial fibrillation, unspecified type (HCC),Anticoagulati on management encounter,half-way current use of anticoagulant therapy,Paroxysmal atrial fibrillation [...] without remission 06/14/2014 Overview: Dr Rodriges/ [facility] DIRECTIVE INFORMATION 10/13/2006 Overview: No, Advance [...] Description 11/29/2023 7:50 AM EDT [facility] [address] [place] [phone] [facility] [address] [facility] [place] [address] 11/29/2023 9:00 AM EDT Hem/Onc Treatment Hematology/Oncology Treatment, [place] [address] [place] [phone] [place], Chair [address] Hem Onc Sc[address] [place] [address] 11/29/2023 5:30 PM EDT Anticoagulation Pharmacy, [address] [place] [address] [place] [address] 12/09/2023 3:30 PM EDT Telemedicine H[facility]ology [facility] Tyree UGARTE [address] [facility] [place] [address] Rosalio Amaral MD [address] [place] [address] 12/15/2023 8:30 AM EDT Office Visit Cardiology, [facility] [address] [place] [address] Beth Gibbs CRNP [address] [place] [address] 12/29/2023 9:00 AM EDT Office Visit Otolaryngology [facility] [address] [place] [address] Haley Aguero PA-C [address] [place] [address] 01/06/2024 2:30 PM EDT Home Visit [facility] [address] [place] [address] Sulma Seth, BOBBY [address] [place] [address] 03/08/2024 9:00 AM EDT Office Visit Cardiology [address] [place] [address] Tim Ruiz PA-C [address] [place] [address] 10/30/2024 1:45 PM EST Office Visit Urology, [facility] [address] [place] [address] Devyn Paniagua MD [address] [facility] [address] [place] [address] Pending Results Name Type Priority Associated Diagnoses Date /Time MYCODE INITIAL ADULT Lab Routine [facility] Other*[id number] 11/24/2023 11:43 AM EDT HEPATITIS B SURFACE [...] MYCODE INITIAL ADULT-PINK Lab Routine [facility] Other*[id number] 11/24/2023 11:43 AM EDT MYCODE SST1 Lab Routine [facility] Other*[id number] 11/24/2023 11:43 AM EDT MYCODE SST2 Lab Routine [facility] Other*[id number] 11/24/2023 11:43 AM EDT HEPATITIS C ANTIBODY [...] Additional history exists CKD HGB USE SMARTSET 00956 11/13/202411/13, 11/14/2023, 10/28/2023, Additional history exists CKD PHOS USE SMARTSET 76976 11/13/2024 03/0 12/2023, 10/28/2023, 08/16/2023, Additional history [...] this encounter Medical Devices Implanted Type Area President Celebrity Acquistion Device Identifier Shelf Expiration Date Model / Serial / Lot Port Power Mri W/8fr Cath - [id number] Implanted:Qty: 1 on 09/26/2020 by Simone Michelel MD at OR [facility] Right: Chest CR BARD : PERIPHERAL VASCULAR 10/12/2021 [id number] / / [id number] Description:right IJ Lens Intraoc 19.0 - [id number] - [id number] Implanted:Qty: 1 on 02/03/2021 by Chris Sexton MD at OR [facility] Right: Eye BAUSCH & LOMB 09/11/2025 [id number] / [id number] / Lens Intraoc 19.0 - [id number] - [id number] Implanted:Qty: 1 on 02/24/2021 by Chris Sexton MD at OR [facility] Left: Eye BAUSCH & LOMB 10/12/2025 [id number] / [id number] System Urolift - [id number] Implanted:Qty: 2 on 03/17/2023 by Devyn Paniagua MD at OR [facility] N/A: Urethra [employer] 11/18/2023 [id number] / / [id number] System Urolift - [id number] Implanted:Qty: 3 on 03/17/2023 by Devyn Paniagua MD at OR [facility] N/A: Urethra [employer] 11/03/2023 [id number] / / [id number] documented as of this encounter Visit Diagnoses Diagnosis My[facility] Research Other*[id number] Multiple myeloma (HCC) Multiple myeloma, without mention [...] and were consensually agreed upon. Care Teams Manager Of Program Relationship Specialty Start Date End Date Jaime Garcia MD [address] [place] [address] [place] [phone] PCP - General Family Medicine 10/15/20 documented as of this encounter
--- OUTSIDE RECORDS SUMMARY | 2023-12-07 07:50 | External Medical Summary | Summary of Care ---
Author Name Unknown Organization [facility] Address [address] [place] [address] Phone [phone] Care Team Providers Care Medical Assistant Ob Gyn Name Role Phone Jaime Garcia MD Primary Care Provide r Reason for Visit * Reason Onset Date Comments Forms Request 08/18/2023 Encounter Details Date Type Department Care Team (Late st Contact Info) Description 08/18/2023 Telephone Family Medicine [address] [phone] Jaime Garcia MD [address] [place] [address] [place] [address] Forms Request Allergies Active Allergy Reactions Criticality Noted Date Comments Atorvastatin Muscle pain High 03/30/2019 Ezetimibe Muscle pain High 01/25/2020 documented as of this encounter (statuses as of 11/17/2023) Medications Medication Sig Dispensed Refills Start Date [...] Test once daily DxE11.9 100 Strip 5 03/02/20 Active LancetsIndication s:Type 2 diabetes mellitus with hemoglobin A1c goal of less than 7.0% ([facility]) Test once daily DxE11.9. 100 Each 5 03/02/20 Active Albuterol Sulfate HFA 108 (90 Base) MCG/ACT Inhalation Aerosol SolutionIndicatio ns:Acute bronchitis, antibiotics not indicated Inhale 2 Puffs by mouth every 6 hours as needed for Cough or Shortness of Breath. 54 g 1 06/30/20 21 Active Acyclovir 400 MG Oral Tablet (Zovirax)Indicati ons:Lambda light chain myeloma ([facility]) Take one tablet once daily 180 Tablet [...] prior to Hizentra, 50 Capsule 2 09/16/19 23 Active Acetaminophen 325 MG Oral Tablet (Tylenol) Take two 325 mg tablets by mouth one hour prior to Hizentra. 30 Tablet 3 09/16/19 23 Active EpiPen 2-Konstantin 0.3 MG/0.3ML Injection Solution Auto-injector For a severe reaction: Inject in outer thigh following instructions on package and go to the Emergency room. 2 Each 3 10/05/19 23 Active Dexamethasone 4 MG Oral Tablet (Decadron)Indicat ions:Multiple myeloma not having achieved remission ([facility]) 5 tabs 2 times monthly 10 Tablet 5 10/25/19 23 Active Polyethylene Glycol 3350 17 GM Oral Packet Take 1 Packet by mouth daily as needed. 0 Active oxyCODONE-Acetami nophen 5-325 MG Oral Tablet (Percocet) Take 1 Tablet by mouth every 6 hours as needed for Pain, Severe. 10 Tablet 0 07/06/20 23 Active Levothyroxine Sodium 50 MCG Oral Tablet (Levoxyl) TAKE 1 TABLET BY MOUTH DAILY AT LEAST 30 MINUTES PRIOR TO FIRST MEAL OF THE DAY OR OTHER MEDICATIONS 90 Tablet 3 01/12/20 23 024 Active Additional Information Patient taking differently: 50 mcg Oral [id number], Reported on 04/14/2023 Finasteride 5 MG Oral [...] in the morning. 30 Tablet 5 06/14/20 Active Additional Information Patient taking differently: 150 [...] morning. 180 Tablet 1 07/11/20 Active Pen [place] 32G X 4 MM Use as directed. Inject Lantus once daily. 50 Each 3 07/19/20 23 Active Icosapent Ethyl 1 GM Oral Capsule (Vascepa)Indicati ons:Hyperlipidemi a with target LDL less than 70 Take 2 Capsules by mouth 2 times a day with morning and evening meals. Swallow capsules whole, do not open or break. 360 Capsule 3 07/20/20 23 Active Fluticasone Propionate 50 MCG/ACT Nasal Suspension (Flonase)Indicati ons:Nasal congestion Administer 2 Sprays into each nostril daily. 16 g 1 01/16/20 21 023 Discontinued(Oleg gallego preference/disc ontinuation) Imiquimod 5 % External Cream (Aldara)Indicatio ns:Anal condyloma Apply topically to affected area at bedtime. 3 times per week and wash off after 6-10 hours. Use up to 16 weeks Given by [facility] 12 Packet 3 01/20/20 21 023 Discontinued(Pa tient preference/disc ontinuation) Torsemide 20 MG Oral Tablet (Demadex)Indicati ons:takes extra tab for swelling, wt gain Take 1 Tablet by mouth in the morning. Takes every other day . 0 023 Discontinued(Re fill) COVID-19 At Home Antigen Test In Vitro Kit DIRECTED 5 Kit 5 06/07/20 22 023 Discontinued(Pa tient preference/disc ontinuation) Ondansetron HCl 8 MG Oral Tablet (Zofran)Indicatio ns:Nausea Take 1 Tablet (8 mg) by mouth every 8 hours as needed for Nausea. 30 Tablet 3 08/26/20 22 024 Discontinued(Re fill) Prochlorperazine Maleate 10 MG Oral Tablet (Compazine) Take 1 Tablet by mouth every 6 hours as needed for Nausea. Take 1 tablet by mouth between 1st and 2nd Zofran doses and between the 2nd and 3rd Zofran doses. Do this when you need her not for the 1st 2 days and then as you need for nausea 28 Tablet 1 08/31/20 22 024 Discontinued(Re fill) Famotidine 20 MG Oral Tablet Take 1 Tablet by mouth at bedtime. Take one one hour prior to weekly hizentra by mouth . 30 Tablet 3 09/16/19 23 023 Discontinued(Pa tient preference/disc ontinuation) Bisacodyl 5 MG Oral Tablet Delayed Release [...] minimum every 3rd day. 40 Tablet 1 11/19/19 23 023 Discontinued(Pa tient preference/disc ontinuation) Midodrine HCl 10 MG Oral Tablet (Proamatine)Indic ations:takes 1-3 tabs depending on bp as needed Take 1 Tablet by mouth every morning. Take 0.5 tablet shortly before or upon rising in the morning, at midday, and in the late afternoon (not later than 6 PM) 135 Tablet 3 12/14/19 23 023 Discontinued(Re fill) Silodosin 8 MG Oral Capsule (Rapaflo) Take 1 Capsule by mouth in the morning. 30 Capsule 1 03/17/20 23 023 Discontinued(Md dication List Clean Up) Folic Acid 400 MCG Oral TabletIndications :Low folate TAKE ONE TABLET BY MOUTH IN THE MORNING 90 Tablet 1 02/06/20 23 023 Discontinued(Re fill) Pantoprazole Sodium 20 MG Oral Tablet Delayed Release (Protonix)Indicat ions:Gastroesopha geal reflux disease without esophagitis TAKE ONE TABLET BY MOUTH EVERY DAY IN THE MORNING 90 Tablet 2 12/27/19 23 023 Discontinued(Re fill) Potassium Chloride ER 10 MEQ Oral Tablet Extended ReleaseIndication s:Chronic diastolic congestive heart failure (HCC) TAKE ONE TABLET BY MOUTH EVERY DAY 90 Tablet 3 12/14/19 23 023 Discontinued(Re fill) Warfarin Sodium 2.5 MG Oral Tablet (Coumadin)Indicat ions:Atrial fibrillation, unspecified type (HCC),Anticoagula tion management encounter,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 90 Tablet 1 03/28/20 23 023 Discontinued(Re fill) Dapsone 25 MG Oral TabletIndications :Multiple myeloma in relapse (HCC) TAKE ONE TABLET BY MOUTH EVERY DAY 90 Tablet 1 04/26/20 23 024 Discontinued(Re fill) Insulin Glargine Solostar 100 UNIT/ML Subcutaneous Solution Pen-injector (Lantus SoloStar) Inject 10 Units under the skin every evening. 15 mL 3 07/19/20 23 024 Discontinued documented as of this encounter (statuses as of 11/17/2023) Active Problems Problem Noted Date Diagnosed Date [...] myeloma without remission 06/14/2014 Overview: Dr Rodriges/ [facility] DIRECTIVE INFORMATION 10/13/2006 Overview: No, Advance Directive brochure offered , patient declined. Degeneration of lumbosacral intervertebral disc 02/19/2005 documented as of this encounter (statuses as of 11/17/2023) Resolved Problems Problem Noted Date Diagnosed Date [...] as of this encounter (statuses as of 11/17/2023) Immunizations Name Administration Dates Next Due COVID-19, LNP-s, No Preserve , Azar-sucrose, Ages 12+ (Pfizer) 10/06/2021,06/23/2021 Hepatitis B, 20+ yrs 11/20/2019,06/21/2019,05/22 Pneumococcal Conjugate Vacc, 13 Valent (Prevnar) 05/13/2020 Pneumococcal Polysaccharide PPV23 (Pneumovax) 05/22/2019 Seasonal Influenza, PF, 6 M & above, IM , (FluLaval or Fluzone) 06/10/2022,07/23/2021,07/31/2020,05/22 Seasonal Influenza, Split, I IV3, No [...] Telephone Encounter - Ellyn Lyn CMA - 08/18/2023 10:56 AM EST Forms addended and on 's desk. * Telephone Encounter - Alba Pink OSA - 08/18/2023 10:22 AM EST Patient Haley needs to have [place] papers updated for extension on the dates she will be off due to the fact that Jerardo is still in the hospital and should be getting out in a day or two. Needs [employer] paper work resent in with the new date for . If any questions please call her [phone]. documented in this encounter Plan of Treatment Upcoming Encounters Date Type Department Care Team (Late st Contact Info) Description 11/18/2023 2:30 PM EST Home Visit [facility] [address] [facility] [place] [address] Sulma Seth, BOBBY [address] [facility] [place] [address] 11/21/2023 2:40 PM EDT Office Visit Nephrology, Carla Renae [address] [place] [address] Armando Cook MD [address] [place] [address] 11/29/2023 7:50 AM EDT Laboratory Laboratory [facility] Shakeel Austin [address] [place] [address] [phone] Nate Renae [address] [place] [address] 11/29/2023 9:00 AM EDT Hem/Onc Treatment Hematology/Oncology Treatment, [place] [address] [place] [phone] Park, Chair 10 Hem Onc Sc[address] [place] [address] 11/29/2023 5:30 PM EDT Anticoagulation Pharmacy, [address] [place] [address] [place] [address] 12/09/2023 3:30 PM EDT Office Visit Hematology [facility] [address] [facility] [place] [address] Rosalio Amaral MD [address] [facility] [place] [address] 12/15/2023 8:30 AM EDT Office Visit Cardiology, [facility] [address] [place] [address] Beth Gibbs CRNP [address] [place] [address] 12/29/2023 9:00 AM EDT Office Visit Otolaryngology [facility] [address] [place] [address] Haley Aguero PA-C [address] [place] [address] 03/08/2024 9:00 AM EDT Office Visit Cardiology [address] [place] [address] Tim Ruiz PA-C [address] [place] [address] 10/30/2024 1:45 PM EST Office Visit Urology, [facility] [address] [place] [address] Devyn Paniagua MD [address] [place] [address] Health Maintenance Due Date Last Done Comments [...] Additional history exists CKD HGB USE SMARTSET 70564 11/13/202411/13, 11/14/2023, 10/28/2023, Additional history exists CKD PHOS USE SMARTSET 30303 11/13/2024 03/0 12/2023, 10/28/2023, 08/16/2023, Additional history [...] this encounter Medical Devices Implanted Type Area Mule Packer Device Identifier Shelf Expiration Date Model / Serial / Lot Port Power Mri W/8fr Cath - [id number] Implanted:Qty: 1 on 09/26/2020 by Simone Michelle MD at OR [facility] Right: Chest CR BARD : PERIPHERAL VASCULAR 10/12/2021 [id number] / / [id number] Description:right IJ Lens Intraoc 19.0 - [id number] - [id number] Implanted:Qty: 1 on 02/03/2021 by Chris Sexton MD at OR [facility] Right: Eye [employer]OM[employer] 09/11/2025 [id number] / [id number] / Lens Intraoc 19.0 - [id number] - [id number] Implanted:Qty: 1 on 02/24/2021 by Chris Sexton MD at OR [facility] Left: Eye [employer]OMB 10/12/2025 [id number] / [id number] / [id number] System Urolift - [id number] Implanted:Qty: 2 on 03/17/2023 by Devyn Paniagua MD at OR [facility] N/A: Urethra [employer] 11/18/2023 [id number] / / [id number] System Urolift - [id number] Implanted:Qty: 3 on 03/17/2023 by Devyn Paniagua MD at OR [facility] N/A: Urethra [employer] 11/03/2023 [id number] / / [id number] documented as of this encounter Additional Health Concerns Infection Onset Date Last Indicated Resolved Time Gastrointestinal Rule-Out 09/14/2023 09/14/2023 10:40 PM EST C. difficile Rule-Out 09/14/2023 09/14/20232023 2:52 PM EST Salmonella 09/14/2023 09/14/2023 Gastrointestinal Rule-Out 10/04/2023 10/05/2023 4:28 PM EST C. difficile Rule-Out 10/04/2023 10/05/20232023 1:19 PM EST documented as of this encounter Advance Directives [...] and were consensually agreed upon. Care Teams Medical Assistant Ob Gyn Relationship Specialty Start Date End Date Jaime Garcia MD [address] [place] [address] [place] [phone] PCP - General Family Medicine 10/15/20 documented as of this encounter
--- OUTSIDE RECORDS SUMMARY | 2023-12-07 07:50 | External Medical Summary | Summary of Care ---
Author Name Unknown Organization [facility] Address [address] [place] [address] Phone [phone] Care Team Providers Care Booth Cleaner Name Role Phone Jaime Garcia MD Primary Care Provide r Reason for Visit * Reason Comments Chronic Kidney Disease (CKD) Encounter Details Date Type Department Care Team (Late st Contact Info) Description 11/21/2023 2:40 PM EDT [facility] [address] [place] [address] Armando Cook MD [address] [facility] [place] [address] Stage 3a chronic kidney disease (HCC)*; Multiple myeloma, remission status unspecified (HCC) Allergies Active Allergy Reactions Criticality Noted Date Comments Atorvastatin Muscle pain High 03/30/2019 Ezetimibe Muscle pain High 01/25/2020 documented as of this encounter (statuses as of 11/21/2023) Medications Medication Sig Dispensed Refills Start Date [...] once daily DxE11.9 100 Strip 03/02/20 Active LancetsIndications :Type 2 diabetes mellitus with hemoglobin A1c goal of less than 7.0% ([facility]) Test once daily DxE11.9. 100 Each 03/02/20 Active Albuterol Sulfate HFA 108 (90 Base) MCG/ACT Inhalation Aerosol SolutionIndication s:Acute bronchitis, antibiotics not indicated Inhale 2 Puffs by mouth every 6 hours as needed for Cough or Shortness of Breath. 54 g 1 06/30/20 21 Active Acyclovir 400 MG Oral Tablet (Zovirax)Indicatio ns:Lambda light chain myeloma ([facility]) Take one tablet once daily 180 [...] 23 Active Dexamethasone 4 MG Oral Tablet (Decadron)Indicati ons:Multiple myeloma not having achieved remission ([facility]) 5 tabs 2 times monthly 10 [...] Information Patient taking differently: 50 mcg Oral [id number], Reported on 04/14/2023 Finasteride 5 MG Oral Tablet (Proscar) TAKE 1 TABLET BY MOUTH IN THE MORNING 90 Tablet 3 04/12/20 23 024 Active DULoxetine HCl 20 MG Oral Capsule Delayed Release Particles (Cymbalta) Take 2 Capsules by mouth in the morning. 180 Capsule 1 06/06/20 Active Cholecalciferol 50 MCG (2000 UT) Oral [...] PRIOR TO INJECTION 6 mL 3 06/15/20 Active metFORMIN HCl ER 500 MG Oral Tablet Extended Release 24 Hour (Glucophage XR)Indications:Typ e 2 diabetes mellitus with hemoglobin A1c goal of less than 7.0% (HCC) Take 2 Tablets by mouth in the morning. 180 Tablet 1 07/11/20 Active Pen Molalla 32G X 4 MM Use as directed. Inject Lantus once daily. 50 Each 3 07/19/20 Active Icosapent Ethyl 1 GM Oral Capsule (Vascepa)Indicatio ns:Hyperlipidemia with target LDL less than 70 Take 2 Capsules by mouth 2 times a day with morning and evening meals. Swallow capsules whole, do not open or break. 360 Capsule 3 07/20/20 Active Folic Acid 400 MCG Oral TabletIndications: Low folate TAKE ONE TABLET BY MOUTH IN THE MORNING 90 Tablet 1 08/27/20 23 024 Active Pantoprazole Sodium 20 MG Oral Tablet Delayed Release (Protonix)Indicati ons:Gastroesophage al reflux disease without esophagitis TAKE ONE TABLET BY MOUTH EVERY DAY IN THE MORNING 90 Tablet 2 08/31/20 23 024 Active Dexcom G7 SensorIndications: Type 2 diabetes mellitus with stage 3b chronic kidney disease, without long-term current use of insulin ([facility]) Use as directed to check blood sugars daily. Change every 10 days 9 Each 3 09/01/20 23 Active Midodrine HCl 10 MG Oral Tablet (Proamatine)Indica tions:takes 1-3 tabs depending on bp as needed Take 2 tablet shortly before or upon rising in the morning, at midday, and in the late afternoon (not later than 6 PM) 600 Tablet 3 09/02/20 23 Active Nystatin 956721 UNIT/ML Mouth/Throat SuspensionIndicati ons:Multiple myeloma in relapse ([facility]) Swish and swallow 5 mL in [...] Active Prochlorperazine Maleate 10 MG Oral Tablet (Compazine)Indicat ions:Nausea and vomiting, unspecified vomiting type Take 1 [...] Administer 2 g intravenously daily. 0 Active oxyCODONE HCl 5 MG Oral Tablet (Oxy IR)Indications:Mul tiple myeloma in relapse ([facility]) Take 1 Tablet by mouth every 4 hours as needed for breakthrough pain. 30 Tablet 0 10/06/19 24 Active Allopurinol 100 MG Oral Tablet (Zyloprim)Indicati ons:Multiple myeloma in relapse ([facility]) Take 1 Tablet by mouth in the morning. 30 Tablet 4 10/11/19 24 Active Warfarin Sodium 2.5 MG Oral Tablet (Coumadin)Indicati ons:Atrial fibrillation, unspecified type (HCC),Anticoagulat ion management encounter,extermination inspector current use of anticoagulant therapy,Paroxysmal atrial fibrillation (HCC) Take up to one tablet by mouth daily as directed by anticoagulation clinic 90 Tablet 3 10/28/19 24 Active Dapsone 25 MG Oral TabletIndications: Multiple myeloma in relapse (HCC) TAKE ONE TABLET BY MOUTH EVERY DAY 90 Tablet 1 10/28/19 24 025 Active Magnesium Chloride 64 MG Oral Tablet Delayed Release (Mag64)Indications :Multiple myeloma in relapse (HCC) Take 1 Tablet by mouth in the morning and 1 Tablet before bedtime. 180 Tablet 3 11/10/19 24 Active Torsemide 10 MG Oral Tablet (Demadex)Indicatio ns:takes extra tab for swelling, wt gain Take 1 Tablet by mouth in the morning. As needed.. 0 11/21/19 24 Active Torsemide 10 MG Oral Tablet (Demadex)Indicatio ns:takes extra tab for swelling, wt gain Take 1 Tablet by mouth in the morning every other day. 100 Tablet 3 09/02/20 23 024 Discontinued documented as of this encounter (statuses as of 11/21/2023) Active Problems Problem Noted Date Diagnosed Date [...] Overview: Dr Rodriges/ [facility] ADVANCE DIRECTIVE INFORMATION 10/13/2006 Overview: No, Advance Directive brochure offered , patient declined. Degeneration of lumbosacral intervertebral disc 02/19/2005 documented as of this encounter (statuses as of 11/21/2023) Resolved Problems Problem Noted Date Diagnosed Date [...] as of this encounter (statuses as of 11/21/2023) Immunizations Name Administration Dates Next Due COVID-19, [...] Sign Reading Time Taken Comments Blood Pressure 136/74 11/21/2023 3:05 PM EDT Pulse 88 11/21/2023 3:05 PM EDT Temperature 36.6 C (97.9 F) 11/21/2023 3:05 PM ED T Respiratory Rate 18 11/21/2023 3:05 PM EDT Oxygen Saturation - - Inhaled Oxygen Concentration - - Weight 68.9 kg (152 lb) 11/21/2023 3:05 PM EDT Height - - Body Mass Index 22.45 10/04/2023 10:42 AM EST documented in this encounter Progress Notes * Armando Cook MD - 11/21/2023 3:15 PM EDT REASON FOR VISIT: CKD 3 HPI: Jerardo Ochoa Jr. is a 53 year old male With CKD stage 3 and Multiple myeloma. 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 Had syncope and admitted in hospital. Echo results show reduced EF from last ECHO reviewed; EF now 45-50%, moderate RV hypertrophy, trace mitral regurgitation.episode was attributed to flomax and it was discontinued. Last office visit was in -- had hospital admission wtice aug and then Sep for Salmonella cusing severe Diarrhea. Had Abx and now all done and no Diarrhea, N or vomiting or Abd pain. Creat got as bad as 2 but now down to 1.3 ( his baseline). Still getting chemo every 3 weeks. Still on midodrine and No dizziness. He has chronic SOB. Mild edema. He has lost lot of weight. Also the lambda chainlevel has gone up and his chemotherapy has been changed. Still getting IVIG .Labs done last week showed stable kidney function Past Medical History: Diagnosis Date A-fib (HCC) Adjustment disorder with depressed mood C. difficile colitis 04/25/2021 positive for toxin B gene Cardiac amyloidosis (HCC) per cardiology note CHF (congestive heart failure) ([facility]) diastolic and systolic CKD (chronic kidney disease) COVID-19 08/25/2020 Degeneration of lumbosacral intervertebral disc DM type 2, goal HbA1c < 7% ([facility]) INFORMATION nonobstructive CAD - per cardiology note - cath 2018 IPMN (intraductal papillary mucinous neoplasm) on MRI, then EUS; surveillance imaging due May 2024 Multiple myeloma (HCC) Obstructive sleep apnea Orthostatic hypotension Tobacco use disorder Review of Systems: General ROS: negative for - chills or fever Psychological ROS: negative for - mood swings ENT ROS: negative for - nasal congestion or nasal discharge Endocrine ROS: negative Gastrointestinal ROS: no abdominal pain, change in bowel habits, or black or bloody stools Genito-Urinary ROS: no dysuria, trouble voiding, or hematuria Musculoskeletal ROS: negative for - muscle pain Neurological ROS: no TIA or stroke symptoms Dermatological ROS: negative for rash Family History: No FH of renal disease Social History Socioeconomic History Marital status: Spouse name: Not on file Number of children: 2 Years of education: Not on file Highest education level: Not on file Occupational History Not on file Social Needs Financial resource strain: Not on file Food insecurity Worry: Never true Inability: Never true Transportation needs Medical: Not on file Non-medical: Not on file Tobacco Use Smoking status: Never Smoker Smokeless tobacco: Current User Types: Chew Tobacco comment: one pouch daily for 17 years Substance and Sexual Activity Alcohol use: No Drug use: No Sexual activity: Yes Partners: Female Lifestyle Physical activity Days per week: Not on file Minutes per session: Not on file Stress: Not on file Relationships Social connections Talks on phone: Not on file Gets together: Not on file Attends taoism service: Not on file Active member of club or organization: Not on file Attends meetings of clubs or organizations: Not on file Relationship status: Not on file Intimate partner violence Fear of current or ex partner: Not on file Emotionally abused: Not on file Physically abused: Not on file Forced sexual activity: Not on file Other Topics Concern Not on file Social History Narrative Not on file Vaping/E-Cigarette Use Vaping/E-Cigarette Use Never User Vaping/E-Cigarette Substances Vaping/E-Cigarette Devices Current Outpatient Medications Medication Sig Dispense Refill CPAP every night at bedtime. oxygen IN GAS Use 2 L/min(Oxygen) as directed at bedtime. 1 Each 0 Acyclovir 400 MG Oral Tablet (Zovirax) Take one tablet once daily 180 Tablet 3 Acetaminophen 325 MG Oral Tablet (Tylenol) Take two 325 mg tablets by mouth one hour prior to Hizentra. 30 Tablet 3 Dexamethasone 4 MG Oral Tablet [...] not open or break. 360 Capsule 3 Folic Acid 400 MCG Oral Tablet TAKE [...] morning every other day. 100 Tablet 3 Vemlidy 25 MG Oral Tablet (Tenofovir Alafenamide Fumarate) Take 1 tablet by mouth in the morning. 90 Tablet 1 Ondansetron HCl 8 MG Oral Tablet (Zofran) Take 1 Tablet by mouth every 8 hours as needed for Nausea. 30 Tablet 3 Prochlorperazine Maleate 10 MG Oral Tablet (Compazine) Take 1 Tablet by mouth every 6 hours as needed for Nausea. 40 Tablet 0 Potassium Chloride ER 20 MEQ Oral Tablet Extended Release Take 1 Tablet by mouth in the morning. oxyCODONE HCl 5 MG Oral Tablet (Oxy IR) Take 1 Tablet by mouth every 4 hours as needed for breakthrough pain. 30 Tablet 0 Allopurinol 100 MG Oral Tablet (Zyloprim) Take 1 Tablet by mouth in the morning. 30 Tablet 4 Warfarin Sodium 2.5 MG Oral Tablet (Coumadin) Take up to one tablet by mouth daily as directed by anticoagulation clinic 90 Tablet 3 Dapsone 25 MG Oral Tablet TAKE ONE TABLET BY MOUTH EVERY DAY 90 Tablet 1 Magnesium Chloride 64 MG Oral Tablet Delayed Release (Mag64) Take 1 Tablet by mouth in the morning and 1 Tablet before bedtime. 180 Tablet 3 NSS 0.9 % SOLN with [...] or Shortness of Breath. 54 g 1 Hizentra 4 GM/20ML Subcutaneous Solution (immune globulin human 20%) Patient is to subcutaneously infuse three four gram vials twice weekly for four weeks then 6 grams weekly. (Patient not taking: Reported on 11/21/2023) 480 mL 0 Hizentra 2 GM/10ML Subcutaneous Solution (immune globulin human 20%) Patient is to subcutaneously inject one 2 gram vial plus one four gram vial for a total of 6 grams weekly after loading dose of 12grams twice weekly x four weeks . (Patient not taking: Reported on 11/21/2023) 120 mL 12 diphenhydrAMINE HCl 50 MG Oral Capsule (Benadryl) Take one 25 mg capsule by mouth one hour prior toHizentra, 50 Capsule 2 EpiPen 2-Konstantin 0.3 MG/0.3ML Injection Solution Auto-injector For a severe reaction: Inject in outer thigh following instructions on package and go to the Emergency room. 2 Each 3 Pen Molalla 32G X 4 MM Use as directed. Inject Lantus once daily. 50 Each 3 Dexcom G7 Sensor Use as directed to check blood sugars daily. Change every 10 days 9 Each 3 Nystatin 266673 UNIT/ML Mouth/Throat Suspension Swish and swallow 5 mL in the morning and 5 mL at noon and 5 mL in the evening and 5 mL before bedtime. (Patient not taking: Reported on 10/04/2023) 60 mL 1 Ondansetron 4 MG Oral Tablet Disintegrating (Zofran) Advanced Probiotic 10 Oral Capsule 1 Capsule in the morning. (Patient not taking: Reported on 11/21/2023) NSS 0.9 % SOLN 100 mL with cefTRIAXone 2 GM SOLR 2 g Administer 2 g intravenously daily. No current facility-administered medications for this visit. Filed Vitals: 11/21/23 1505 BP: 136/74 Pulse: 88 Resp: 18 Temp: 36.6 C (97.9 F) Weight: 68.9 kg (152 lb) PHYSICAL EXAM: BP 136/74 (BP Site: Right Arm, BP Position: Sitting, BP Cuff Size: Regular) | Pulse 88 | Temp 36.6 C (97.9 F) | Resp 18 | Wt 68.9 kg (152 lb) | BMI 22.45 kg/m | BSA 1.83 m GENERAL: Alert, in no acute distress. EYES: PERRL, conjunctivae anicteric. ENT: Mucous membranes moist, oropharynx clear. NECK: Supple, no JVD. LYMPH: No cervical or supraclavicular lymphadenopathy. LUNGS: Clear to auscultation bilaterally, no respiratory distress. CARDIAC: Regular rate and rhythm, normal S1/S2, no murmurs, rubs, or gallops. ABDOMEN: Soft, non-tender, non-distended, bowel sounds present. EXT/MSK: Trace edema. SKIN: No rash, no jaundice. NEURO: No tremor, no asterixis. LABS/STUDIES: NEPH-FLOW Latest Ref Rng & Units 11/21/2020 12/05/2020 12/19/2020 Bun 6 - 20 mg/dL BUN 6 - 20 mg/dL 28 (H) 19 19 Cr 0.6 - 1.2 mg/dL CREATININE 0.6 - 1.2 mg/dL 1.6 (H) 1.5 (H) 1.5 (H) eGFR >60 EGFR >=60.0 mL/min 49.1 (L) 53.5 (L) 55.3 (L) K 3.5 - 5.1 mmol/L POTASSIUM 3.5 - 5.1 mmol/L 4.1 3.6 3.7 Hb 14.0 - 16.8 g/dL HGB 14.0 - 16.8 g/dL 13.7 (L) 13.4 (L) 14.0 NEPH-FLOW Latest Ref Rng & Units 01/02/2021 01/05/2021 01/16/2021 Bun 6 - 20 mg/dL BUN 6 - 20 mg/dL 27 (H) 23 (H) 22 (H) Cr 0.6 - 1.2 mg/dL CREATININE 0.6 - 1.2 mg/dL 1.7 (H) 1.5 (H) 1.7 (H) eGFR >60 EGFR >=60.0 mL/min 47.7 (L) 53.1 (L) 45.0 (L) K 3.5 - 5.1 mmol/L POTASSIUM 3.5 - 5.1 mmol/L 3.7 3.8 4.2 Hb 14.0 - 16.8 g/dL HGB 14.0 - 16.8 g/dL 15.2 14.8 NEPH-FLOW Latest Ref Rng & Units 10/31/2020 11/07/2020 11/21/2020 Bun 6 - 20 mg/dL BUN 6 - 20 mg/dL 29 (H) 17 28 (H) Cr 0.6 - 1.2 mg/dL CREATININE 0.6 - 1.2 mg/dL 1.8 (H) 1.6 (H) 1.6 (H) eGFR >60 EGFR >=60.0 mL/min 43.5 (L) 49.5 (L) 49.1 (L) K 3.5 - 5.1 mmol/L POTASSIUM 3.5 - 5.1 mmol/L 3.7 3.7 4.1 Hb 14.0 - 16.8 g/dL HGB 14.0 - 16.8 g/dL 13.6 (L) 12.8 (L) 13.7 (L) NEPH-FLOW Latest Ref Rng & Units 12/05/2020 12/19/2020 01/02/2021 Bun 6 - 20 mg/dL BUN 6 - 20 mg/dL 19 19 27 (H) Cr 0.6 - 1.2 mg/dL CREATININE 0.6 - 1.2 mg/dL 1.5 (H) 1.5 (H) 1.7 (H) eGFR >60 EGFR >=60.0 mL/min 53.5 (L) 55.3 (L) 47.7 (L) K 3.5 - 5.1 mmol/L POTASSIUM 3.5 - 5.1 mmol/L 3.6 3.7 3.7 Hb 14.0 - 16.8 g/dL HGB 14.0 - 16.8 g/dL 13.4 (L) 14.0 15.2 NEPH-FLOW Latest Ref Rng & Units 01/05/2021 01/16/2021 Bun 6 - 20 mg/dL BUN 6 - 20 mg/dL 23 (H) 22 (H) Cr 0.6 - 1.2 mg/dL CREATININE 0.6 - 1.2 mg/dL 1.5 (H) 1.7 (H) eGFR >60 EGFR >=60.0 mL/min 53.1 (L) 45.0 (L) K 3.5 - 5.1 mmol/L POTASSIUM 3.5 - 5.1 mmol/L 3.8 4.2 Hb 14.0 - 16.8 g/dL HGB 14.0 - 16.8 g/dL 14.8 NEPH-FLOW Latest Ref Rng & Units 10/02/2021 10/09/2021 10/22/2021 Bun 6 - 20 mg/dL 15 20 26 (H) Cr 0.6 - 1.2 mg/dL 1.9 (H) 2.0 (H) 2.1 (H) eGFR >=60 mL/min 44 (L) 40 (L) 38 (L) eGFR >60 K 3.5 - 5.1 mmol/L 4.2 4.7 4.4 Hb 14.0 - 16.8 g/dL 12.1 (L) 12.2 (L) 13.5 (L) Microalb/cr ratio <30 mg/g Creat 316 (H) NEPH-FLOW Latest Ref Rng & Units 06/04/2022 06/11/2022 06/15/2022 Bun 6 - 20 mg/dL 22 (H) 29 (H) 34 (H) Cr 0.6 - 1.2 mg/dL 1.7 (H) 2.0 (H) 1.5 (H) eGFR >=60 mL/min 49 (L) 40 (L) 54 (L) eGFR >60 K 3.5 - 5.1 mmol/L 3.6 4.3 4.7 Hb 14.0 - 16.8 g/dL 12.4 (L) 11.8 (L) Pro/Cr ratio <150 mg/g 2,333 (H) ASSESSMENT AND PLAN Kidney disease, chronic, stage III (GFR 30-59 ml/min) (HCC) Patient with the CKD stage 3 likely due to multifactorial etiology including 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 Patient can continue his current regimen which are renally dosed. Labs done 5 days ago shows better Creat/GFR of 1.4 and 60. I advised him to avoid NSAIDs completely and can use Tylenol for pain as needed. But his calcium was slightly high at 10.3--?? Related with myeloma. He is seeing Hematology closelyand is getting active therapy through them Multiple myeloma, remission status unspecified (HCC) Patient with the multiple myeloma since 2013. He will continue his current regimen by Oncology. Patient is at risk for renal injury from multiple myeloma. Some decline in kidney function has been noted but does not appear this is related with myeloma. The lambda chain level has been noted to be high and his chemotherapy has been modified. No indication for renal biopsy at the moment. - PTH; Future; Expected date: 11/21/2023 - PROTEIN/ CREATININE RATIO, URINE; Future; Expected date: 11/21/2023 - RENAL FUNCTION PANEL; Future; Expected date: 11/21/2023 - URINALYSIS WITH MICROSCOPIC EXAM; Future; Expected date: 11/21/2023 Follow Up: Return in about 6 months (around 05/23/2024) for Clinic Visit. | For: Clinic Visit Armando Cook MD documented in this encounter Nursing Notes * Jeannette Yun RN - 11/21/2023 3:07 PM EDT Follow up visit today. Was hospitalized in August and September with Salmonella. He is on Chemotherapy every 2 weeks. documented in this encounter Plan of Treatment Upcoming Encounters Date Type Department Care Team (Late st Contact Info) Description 11/29/2023 7:50 AM EDT Laboratory Laboratory [facility] [address] [place] [phone] Nate Renae [address] [place] [address] 11/29/2023 9:00 AM EDT Hem/Onc Treatment Hematology/Oncology Treatment, [place] [address] [place] [phone] [place], Chair [address] Hem Onc [address] [place] [address] 11/29/2023 5:30 PM EDT Anticoagulation [facility], [address] [place] [address] [place] [address] 12/09/2023 3:30 PM EDT Office Visit [facility]ology [facility] [address] [facility] [place] [address] Rosalio Amaral MD [address] [place] [address] 12/15/2023 8:30 AM EDT Office Visit Cardiology, [facility] [address] [place] [address] Beth Gibbs CRNP [address] [place] [address] 12/29/2023 9:00 AM EDT Office Visit Otolaryngology [facility] [address] [place] [address] Haley Aguero PA-C [address] [place] [address] 01/06/2024 2:30 PM EDT Home Visit [facility] [address] [place] [address] Sulma Seth, BOBBY [address] [place] [address] 03/08/2024 9:00 AM EDT Office Visit Cardiology [address] [place] [address] Tim Ruiz PA-C [address] [place] [address] 10/30/2024 1:45 PM EST Office Visit Urology, [facility] [address] [place] [address] Devyn Paniagua MD [address] [place] [address] [place] [address] Scheduled Orders Name Type Priority Associated Diagnoses Orde r Schedule PTH Lab Routine Stage 3a chronic kidney disease (HCC) Expected: 11/21/2023 (Approximate), Expires: 05/19/2024 PROTEIN/ CREATININE RATIO, URINE Lab Routine Stage 3a chronic kidney disease (HCC) Expected: 11/21/2023 (Approximate), Expires: 05/19/2024 RENAL FUNCTION PANEL Lab Routine Stage 3a chronic kidney disease (HCC) Expected: 11/21/2023 (Approximate), Expires: 05/19/2024 URINALYSIS WITH MICROSCOPIC EXAM Lab Routine Stage 3a chronic kidney disease (HCC) Expected: 11/21/2023 (Approximate), Expires: 05/19/2024 Health Maintenance Due Date Last Done Comments [...] Additional history exists CKD HGB USE SMARTSET 19796 11/13/202411/13, 11/14/2023, 10/28/2023, Additional history exists CKD PHOS USE SMARTSET 38155 11/13/2024 03/0 12/2023, 10/28/2023, 08/16/2023, Additional history [...] this encounter Medical Devices Implanted Type Area Plastic Printer Device Identifier Shelf Expiration Date Model / Serial / Lot Port Power Mri W/8fr Cath - [id number] Implanted:Qty: 1 on 09/26/2020 by Simone Micehlle MD at OR [facility] Right: Chest CR BARD : PERIPHERAL VASCULAR 10/12/2021 [id number] / / [id number] Description:right IJ Lens Intraoc 19.0 - [id number] - [id number] Implanted:Qty: 1 on 02/03/2021 by Chris Sexton MD at OR [facility] Right: Eye [employer] 09/11/2025 [id number] / [id number] / Lens Intraoc 19.0 - [id number] - [id number] Implanted:Qty: 1 on 02/24/2021 by Chris Sexton MD at OR [facility] Left: Eye [employer] 10/12/2025 [id number] / [id number] / [id number] System Urolift - [id number] Implanted:Qty: 2 on 03/17/2023 by Devyn Paniagua MD at OR [facility] N/A: Urethra [employer] 11/18/2023 [id number] / / [id number] System Urolift - [id number] Implanted:Qty: 3 on 03/17/2023 by Devyn Paniagua MD at OR [facility] N/A: Urethra [employer] 11/03/2023 [id number] / / [id number] documented as of this encounter Visit Diagnoses Diagnosis Stage 3a chronic kidney disease (HCC)- Primary Multiple myeloma, remission status unspecified (HCC) documented in this encounter Additional Health Concerns [...] and were consensually agreed upon. Care Teams Booth Cleaner Relationship Specialty Start Date End Date Jaime Garcia MD [address] [place] [address] [place] [address] PCP - General Family Medicine 10/15/20 documented as of this encounter"
--- OUTSIDE RECORDS SUMMARY | 2023-12-07 07:50 | External Medical Summary | Summary of Care ---
Author Name Unknown Organization [facility] Address [address] [place] [address] Phone [phone] Care Team Providers Care Nuclear Technician Name Role Phone Jaime Garcia MD Primary Care Provide r Reason for Visit * Reason Comments Medication Refill Encounter Details Date Type Department Care Team (Late st Contact Info) Description 11/22/2023 Refill [facility] Tyree UGAR[facility] [address] [facility] [place] [address] Ana Amaya MD [address] [facility] [place] [address] Multiple myeloma in relapse (HCC) Allergies Active Allergy Reactions Criticality Noted Date Comments Atorvastatin Muscle pain High 03/30/2019 Ezetimibe Muscle pain High 01/25/2020 documented as of this encounter (statuses as of 11/23/2023) Medications Medication Sig Dispensed Refills Start Date [...] Oral Tablet (Zovirax)Indicatio ns:Lambda light chain myeloma ([facility]) Take one tablet once daily 180 [...] (Decadron)Indicati ons:Multiple myeloma not having achieved remission ([facility]) 5 tabs 2 times monthly 10 [...] Information Patient taking differently: 50 mcg Oral [id number], Reported on 04/14/2023 Finasteride 5 MG Oral [...] morning. 180 Tablet 1 3 Active Pen Lisle 32G X 4 MM Use as directed. [...] disease, without long-term current use of insulin ([facility]) Use as directed to check blood sugars daily. Change every 10 days 9 Each 3 3 Active Midodrine HCl 10 MG Oral Tablet (Proamatine)Indica tions:takes 1-3 tabs depending on bp as needed Take 2 tablet shortly before or upon rising in the morning, at midday, and in the late afternoon (not later than 6 PM) 600 Tablet 3 3 Active Nystatin 493914 UNIT/ML Mouth/Throat SuspensionIndicati ons:Multiple myeloma in relapse [...] 0 Active Allopurinol 100 MG Oral Tablet (Zyloprim)Indicati ons:Multiple myeloma in relapse (HCC) Take 1 Tablet by mouth in the morning. 30 Tablet 4 4 Active Warfarin Sodium 2.5 MG Oral Tablet (Coumadin)Indicati ons:Atrial fibrillation, unspecified type (HCC),Anticoagulat ion management encounter,termination clerk current use of anticoagulant therapy,Paroxysmal atrial fibrillation (HCC) Take up to one tablet by mouth daily as directed by anticoagulation clinic 90 Tablet 3 4 Active Dapsone 25 MG Oral TabletIndications: Multiple myeloma in relapse (HCC) TAKE ONE TABLET BY MOUTH EVERY DAY 90 Tablet 1 4 10/27/19 25 Active Magnesium Chloride 64 MG Oral Tablet Delayed Release (Mag64)Indications :Multiple myeloma in relapse (HCC) Take 1 Tablet by mouth in the morning and 1 Tablet before bedtime. 180 Tablet 3 4 Active Torsemide 10 MG Oral Tablet (Demadex)Indicatio ns:takes extra tab for swelling, wt gain Take 1 Tablet by mouth in the morning. As needed.. 0 4 Active oxyCODONE HCl 5 MG Oral Tablet (Oxy IR)Indications:Mul tiple myeloma in relapse (HCC) Take 1 Tablet by mouth every 4 hours as needed for breakthrough pain. 30 Tablet 0 4 Active oxyCODONE HCl 5 MG Oral Tablet (Oxy IR)Indications:Mul tiple myeloma in relapse (HCC) Take 1 Tablet by mouth every 4 hours as needed for breakthrough pain. 30 Tablet 0 4 11/22/19 24 Discontinu ed(Refill) documented as of this encounter (statuses as of 11/23/2023) Active Problems Problem Noted Date Diagnosed Date [...] 06/14/2014 Overview: Dr Rodriges/ [facility] ADVANCE DIRECTIVE INFORMATION 10/13/2006 Overview: No, Advance Directive brochure offered , patient declined. Degeneration of lumbosacral intervertebral disc 02/19/2005 documented as of this encounter (statuses as of 11/23/2023) Resolved Problems Problem Noted Date Diagnosed Date [...] as of this encounter (statuses as of 11/23/2023) Immunizations Name Administration Dates Next Due COVID-19, [...] Telephone Encounter - Ana Amaya MD - 11/23/2023 2:29 PM EDTSigned Prescriptions: Disp Refills oxyCODONE HCl 5 MG Oral Tablet (Oxy IR) 30 Tab*0 Sig: Take 1 Tablet by mouth every 4 hours as needed for breakthrough pain.Authorizing Provider: ANA AMAYA------ documented in this encounter Plan of Treatment Upcoming Encounters Date Type Department Care Team (Late st Contact Info) Description 11/29/2023 7:50 AM EDT Laboratory Laboratory [facility] [place] [address] [place] [phone] [place], Lab Scenery [address] [place] [address] 11/29/2023 9:00 AM EDT Hem/Onc Treatment Hematology/Oncology Treatment, [place] [address] [place] [phone] [place], Chair 10 Hem Onc Scenery [address] [place] [address] 11/29/2023 5:30 PM EDT Anticoagulation Pharmacy, [address] [place] [address] [place] [address] 12/09/2023 3:30 PM EDT Office Visit [facility] Tyree UGARTE [address] [facility] [place] [address] Ana Amaya MD [address] [facility] [place] [address] 12/15/2023 8:30 AM EDT Office Visit Cardiology, [facility] [address] [place] [address] Beth Gibbs CRNP [address] [place] [address] 12/29/2023 9:00 AM EDT Office Visit Otolaryngology [facility] [address] [place] [address] Haley Aguero PA-C [address] [place] [address] 01/06/2024 2:30 PM EDT [facility] Visit [facility], [facility] [address] [place] [address] Sulma Seth, RN [address] [place] [address] 03/08/2024 9:00 AM EDT Office Visit Cardiology [address] [place] [address] Tim Ruiz PA-C [address] [place] [address] 10/30/2024 1:45 PM EST Office Visit Urology, [facility] [address] [place] [address] Devyn Paniagua MD [address] [place] [address] [place] [address] Health Maintenance Due Date Last Done Comments HIV Screening 1985 Hepatitis C Screening 01/29/1988 Cologuard 2015 Fecal Occult Blood Test 2015 Sigmoidoscopy 2015 COVID-19 Vaccine (3 - Pfizer risk series) 11/03/2021 10/06/2021, 06/23/2021 Depression Screening 01/05/2022 01/05/2021 Diabetic Foot Exam 12/14/2022 12/14/2021, 0 10/15/2020, 06/25/2019 HbA1c 01/05/2024 07/06/2023, 08/0 11/2022, 03/29/2023, Additional history exists GFR 05/16/2024 11/14/2023, 0309/2023, 11/11/2023, Additional history exists Pneumococcal Vaccine: Pediatrics (0 to 5 Years) and At-Risk Patients (6 to 64 Years) (3 of 3 - PPSV23 or PCV20) 05/22/2024 05/13/2020, 05/22/2019 Diabetic Eye Exam 07/11/2024 07/11/2023, , 07/05/2022, Additional history exists TSH 07/25/2024 07/25/2023, 03/12, 01/31/2023, Additional history exists Albumin/Creatinine Ratio 09/08/2024 023, 06/22/2023, 05/27/2023, Additional history exists CKD HGB USE SMARTSET 23752 11/13/202411/13, 11/14/2023, 10/28/2023, Additional history exists CKD PHOS USE SMARTSET 62522 11/13/2024 03/0 12/2023, 10/28/2023, 08/16/2023, Additional history [...] this encounter Medical Devices Implanted Type Area Client Success Specialist Device Identifier Shelf Expiration Date Model / Serial / Lot Port Power Mri W/8fr Cath - [id number] Implanted:Qty: 1 on 09/26/2020 by Simone Michelle MD at OR [facility] Right: Chest CR BARD : PERIPHERAL VASCULAR 10/12/2021 [id number] / / [id number] Description:right IJ Lens Intraoc 19.0 - [id number] - [id number] Implanted:Qty: 1 on 02/03/2021 by Chris Sexton MD at OR [facility] Right: Eye [employer] 09/11/2025 [id number] / [id number] / Lens Intraoc 19.0 - [id number] - [id number] Implanted:Qty: 1 on 02/24/2021 by Chris Sexton MD at OR [facility] Left: Eye [employer]CH [employer] LOMB 10/12/2025 [id number] / [id number] / [id number] System Urolift - [id number] Implanted:Qty: 2 on 03/17/2023 by Devyn Paniagua MD at OR [facility] N/A: Urethra [employer] 11/18/2023 [id number] / / [id number] System Urolift - [id number] Implanted:Qty: 3 on 03/17/2023 by Devyn Paniagua MD at OR [facility] N/A: Urethra [employer] 11/03/2023 [id number] / / [id number] documented as of this encounter Visit Diagnoses Diagnosis Multiple myeloma in relapse (HCC) Multiple myeloma, in relapse documented in this encounter Additional Health Concerns [...] and were consensually agreed upon. Care Teams Nuclear Technician Relationship Specialty Start Date End Date Jaime Garcia MD [address] [place] [address] [place] [phone] PCP - General Family Medicine 10/15/20 documented as of this encounter
--- OUTSIDE RECORDS SUMMARY | 2023-12-07 07:50 | External Medical Summary | Summary of Care ---
Author Name Unknown Organization [facility] Address [address] [place] [address] Phone [phone] Care Team Providers Care Director Of Speech Pathology Name Role Phone Jaime Garcia MD Primary Care Provide r Reason for Visit * Reason Comments Medication Refill Encounter Details Date Type Department Care Team (Late st Contact Info) Description 11/22/2023 Refill [facility] Tyree UGARTE [address] [facility] [place] [address] Rosalio Amaral MD [address] [facility] [place] [address] Multiple myeloma in relapse (HCC) Allergies Active Allergy Reactions Criticality Noted Date Comments Atorvastatin Muscle pain High 03/30/2019 Ezetimibe Muscle pain High 01/25/2020 documented as of this encounter (statuses as of 11/22/2023) Medications Medication Sig Dispensed Refills Start Date [...] A1c goal of less than 7.0% ([facility]) Use as directed daily. Test once daily DxE11.9 100 Strip 5 1 Active LancetsIndications: Type 2 diabetes mellitus with hemoglobin A1c goal of less than 7.0% ([facility]) Test once daily DxE11.9. 100 Each 5 1 Active Albuterol Sulfate HFA 108 (90 Base) MCG/ACT Inhalation Aerosol SolutionIndications :Acute bronchitis, antibiotics not indicated Inhale 2 Puffs by mouth every 6 hours as needed for Cough or Shortness of Breath. 54 g 1 1 Active Acyclovir 400 MG Oral Tablet (Zovirax)Indication s:Lambda light chain myeloma ([facility]) Take one tablet once daily 180 [...] (Decadron)Indicatio ns:Multiple myeloma not having achieved remission ([facility]) 5 tabs 2 times monthly 10 Tablet [...] Information Patient taking differently: 50 mcg Oral [id number], Reported on 04/14/2023 Finasteride 5 MG Oral Tablet (Proscar) TAKE 1 TABLET BY MOUTH IN THE MORNING 90 Tablet 3 3 04/11/20 24 Active DULoxetine HCl 20 MG Oral Capsule Delayed Release Particles (Cymbalta) Take 2 Capsules by mouth in the morning. 180 Capsule 1 3 Active Cholecalciferol 50 MCG (1999 UT) Oral TabletIndications:L ambda light chain myeloma [...] A1c goal of less than 7.0% ([facility]) Take 2 Tablets by mouth in the morning. 180 Tablet 1 3 Active Pen Onward 32G X 4 MM Use as directed. [...] without long-term current use of insulin ([facility]) Use as directed to check blood sugars daily. Change every 10 days 9 Each 3 3 Active Midodrine HCl 10 MG Oral Tablet (Proamatine)Indicat ions:takes 1-3 tabs depending on bp as needed Take 2 tablet shortly before or upon rising in the morning, at midday, and in the late afternoon (not later than 6 PM) 600 Tablet 3 3 Active Nystatin 308904 UNIT/ML Mouth/Throat SuspensionIndicatio ns:Multiple myeloma in relapse ([facility]) Swish and swallow 5 mL in [...] Tablet (Oxy IR)Indications:Mult iple myeloma in relapse ([facility]) Take 1 Tablet by mouth every 4 hours as needed for breakthrough pain. 30 Tablet 0 4 Active Allopurinol 100 MG Oral Tablet (Zyloprim)Indicatio ns:Multiple myeloma in relapse (HCC) Take 1 Tablet by mouth in the morning. 30 Tablet 4 4 Active Warfarin Sodium 2.5 MG Oral Tablet (Coumadin)Indicatio ns:Atrial fibrillation, unspecified type (HCC),Anticoagulati on management encounter,terminal gauger current use of anticoagulant [...] the morning. As needed.. 0 4 Active documented as of this encounter (statuses as of 11/22/2023) Active Problems Problem Noted Date Diagnosed Date [...] myeloma without remission 06/14/2014 Overview: Dr Rodriges/ [facility] ADVANCE DIRECTIVE INFORMATION 10/13/2006 Overview: No, Advance Directive brochure offered , patient declined. Degeneration of lumbosacral intervertebral disc 02/19/2005 documented as of this encounter (statuses as of 11/22/2023) Resolved Problems Problem Noted Date Diagnosed Date [...] as of this encounter (statuses as of 11/22/2023) Immunizations Name Administration Dates Next Due COVID-19, [...] encounter Miscellaneous Notes * Telephone Encounter - Olivia Campbell MD - 11/22/2023 3:06 PM EDTRefused Prescriptions: Disp Refills oxyCODONE HCl 5 MG Oral Tablet (Oxy IR) 30 Tab*0 Sig: Take 1 Tablet by mouth every 4 hours as needed for breakthrough pain.Refused By: Margo CAMPBELL for Refusal: Patient unknown to prescriber documented in this encounter Plan of Treatment Upcoming Encounters Date Type Department Care Team (Late st Contact Info) Description 11/29/2023 7:50 AM EDT Laboratory Laboratory [facility] [address] [place] [phone] [place], Lab Scenery [address] [place] [address] 11/29/2023 9:00 AM EDT Hem/Onc Treatment Hematology/Oncology Treatment, [place] [address] [place] [phone] [place], Chair 10 Hem Onc Scenery [address] [place] [address] 11/29/2023 5:30 PM EDT Anticoagulation Pharmacy, [address] [place] [address] [place] [address] 12/09/2023 3:30 PM EDT Office [facility] Tyree UGARTE [address] [facility] [place] [address] Rosalio Amaral MD [address] [facility] [place] [address] 12/15/2023 8:30 AM EDT Office Visit Cardiology, [facility] [address] [place] [address] Beth Gibbs CRNP [address] [place] [address] 12/29/2023 9:00 AM EDT Office Visit Otolaryngology [facility] [address] [place] [address] Haley Aguero PA-C [address] [place] [address] 01/06/2024 2:30 PM EDT Home Visit yasmine at [facility] [address] [place] [address] Sulma Seth, RN [address] [place] [address] 03/08/2024 9:00 AM EDT Office Visit Cardiology [address] [place] [address] Tim Ruiz PA-C [address] [place] [address] 10/30/2024 1:45 PM EST Office Visit Urology, [facility] [address] [place] [address] Devyn Paniagua MD [address] [place] [address] [place] [address] Health Maintenance Due Date Last Done Comments [...] Additional history exists CKD HGB USE SMARTSET 34285 11/13/202411/13, 11/14/2023, 10/28/2023, Additional history exists CKD PHOS USE SMARTSET 31404 11/13/2024 03/0 12/2023, 10/28/2023, 08/16/2023, Additional history [...] this encounter Medical Devices Implanted Type Area Human Services Worker Device Identifier Shelf Expiration Date Model / Serial / Lot Port Power Mri W/8fr Cath - [id number] Implanted:Qty: 1 on 09/26/2020 by Simone Michelle MD at OR [facility] Right: Chest CR BARD : PERIPHERAL VASCULAR 10/12/2021 [id number] / / [id number] Description:right IJ Lens Intraoc 19.0 - [id number] - [id number] Implanted:Qty: 1 on 02/03/2021 by Chris Sexton MD at OR [facility] Right: Eye [employer] 09/11/2025 [id number] / [id number] / Lens Intraoc 19.0 - [id number] - [id number] Implanted:Qty: 1 on 02/24/2021 by Chris Sexton MD at OR [facility] Left: Eye [employer]CH [employer]OM[employer] 10/12/2025 [id number] / [id number] / [id number] System Urolift - [id number] Implanted:Qty: 2 on 03/17/2023 by Devyn Paniagua MD at OR [facility] N/A: Urethra [employer] 11/18/2023 [id number] / / [id number] System Urolift - [id number] Implanted:Qty: 3 on 03/17/2023 by Devyn Paniagua MD at OR [facility] N/A: Urethra [employer] 11/03/2023 [id number] / / [id number] documented as of this encounter Visit Diagnoses [...] and were consensually agreed upon. Care Teams Director Of Speech Pathology Relationship Specialty Start Date End Date Jaime Garcia MD [address] [place] [address] [place] [phone] PCP - General Family Medicine 10/15/20 documented as of this encounter
--- OUTSIDE RECORDS SUMMARY | 2023-12-07 07:51 | External Medical Summary ---
Author Name Unknown Address Unknown Organization K09:[facility] [address] [place] [address] Laboratory Report Ordering Provider Test Date Status MONIQUE PEREZ 11/14/2023 07:41:01 Final Observation Date Value Abnormality Reference (Units ) Status Phosphate 11/14/2023 07:41:01 2.5 2.5-4.8 (m g/dL) Final Performing Location [facility] [address]la Rod[address] [place] [address]
--- OUTSIDE RECORDS SUMMARY | 2023-12-07 07:51 | External Medical Summary ---
Author Name Unknown Address Unknown Organization K01:[facility] - [address] [place] [address] Laboratory Report Ordering Provider Test Date Status MONIQUE PEREZ 11/14/2023 07:41:01 Final Deficient: <20 ng/mL
Ins ufficient: 20-29 ng/mL
Recommended/Optimum:30-50 ng/mL

Vitamin D intoxication is rare. If suspicious of Vitamin D toxicity, evaluation of serum Calcium and PTH is recommended. Observation Date Value Abnormality Reference (Units ) Status 25-OH Vitamin D total 11/14/2023 07:41:01 30 >19 (ng/mL) Final Performing Location [facility] - [address] [place] [address]
--- OUTSIDE RECORDS SUMMARY | 2023-12-07 07:51 | External Medical Summary | Summary of Care ---
Author Name Unknown Organization [facility] Address [address] [place] [address] Phone [phone] Care Team Providers Care Roof Slater Name Role Phone Jaime Garcia MD Primary Care Provide r Reason for Visit * Reason Comments Dosage Adjustment Via Phone (anticoag Cl inic) Encounter Details Date Type Department Care Team (Latest Contact Info) Description 11/14/2023 5:30 PM EST Anticoagulation Pharmacy, [address] [place] [phone] [place] [address] PAF (paroxysmal atrial fibrillation) ([facility]ERLY [facility])* Allergies Active Allergy Reactions Criticality Noted Date Comments Atorvastatin Muscle pain High 03/30/2019 Ezetimibe Muscle pain High 01/25/2020 documented as of this encounter (statuses as of 11/14/2023) Medications Medication Sig Dispensed Refills Start Date [...] chain myeloma ([facility]) Take one tablet once daily 180 Tablet [...] achieved remission ([facility]) 5 tabs 2 times monthly 10 Tablet [...] Information Patient taking differently: 50 mcg Oral [id number], Reported on 04/14/2023 Finasteride 5 MG Oral [...] morning. 180 Tablet 1 3 Active Pen [place] 32G X 4 MM Use as directed. [...] 3 Active Torsemide 10 MG Oral Tablet (Demadex)Indication s:takes extra tab for swelling, wt gain Take 1 Tablet by mouth in the morning every other day. 100 Tablet 3 3 Active Additional Information Patient not taking.Reported on 10/04/2023 Nystatin [id number] UNIT/ML Mouth/Throat SuspensionIndicatio ns:Multiple myeloma in relapse ([facility]) Swish and swallow 5 mL in the [...] Tablet (Oxy IR)Indications:Mult iple myeloma in relapse ([facility] [...] ns:Atrial fibrillation, unspecified type (HCC),Anticoagulati on management encounter,jail current use of anticoagulant therapy,Paroxysmal [...] before bedtime. 180 Tablet 3 4 Active documented as of this encounter (statuses as of 11/14/2023) Active Problems Problem Noted Date Diagnosed Date [...] without remission 06/14/2014 Overview: Dr Rodriges/ [facility] ADVANCE DIRECTIVE INFORMATION 10/13/2006 Overview: No, Advance Directive brochure offered , patient declined. Degeneration of lumbosacral intervertebral disc 02/19/2005 documented as of this encounter (statuses as of 11/14/2023) Resolved Problems Problem Noted Date Diagnosed Date [...] as of this encounter (statuses as of 11/14/2023) Immunizations Name Administration Dates Next Due COVID-19, [...] this encounter Progress Notes * Barbara Jiménez Jurgen, [facility] - 11/14/2023 1:50 PM EST Images from the original note were not included. Medication Therapy Disease Management - Anticoagulation Patient: Jerardo Ochoa Jr. | : 1970 Subjective Contacts Type Contact Phone/Fax 11/14/2023 01:55 PM EST Phone (Outgoing) Jerardo Ochoa Jr. (Self) [phone] (M) Left Message 11/14/2023 02:38 PM EST Phone (Outgoing) Jerardo Ochoa Jr. (Self) [phone] (M) Spoke to Patient Patient-Reported Symptoms: Patient Findings Positives: Missed doses Negatives: Signs/symptoms of thrombosis, Signs/symptoms of bleeding, Change in health, Change in alcohol use, Change in activity, Upcoming invasive procedure, Extra doses, Change in medications, Change in diet/appetite, Bruising Objective Current Warfarin Dose As of 11/14/2023 Warfarin maintenance plan: 1.25 mg (2.5 mg x 0.5) every day INR Result As of 11/14/2023 INR goal: 2.0-3.0 INR used for dosin.4 (11/14/2023) Assessment & Plan Warfarin Plan As of 11/14/2023 Full warfarin instructions: 11/13: 2.5 mg; Otherwise 1.25 mg every day Next INR check: 11/29/2023 Repeat PT/INR in 2 week(s) w/ treatment labs Weekly dose: not changed d/t missed doses Additional Dosing Information: Description AMIO start 10/29/22 - 11/22/22 BID then QD after AMIO STOPPED 05/31 Barbara Jiménez [facility] Clinical Pharmacist 11/14/2023, 1:50 PM documented in this encounter Plan of Treatment Upcoming Encounters Date Type Department Care Team (Late st Contact Info) Description 11/18/2023 2:30 PM EST Home Visit [facility] [address] [facility] [place] [address] Sulma Seth, RN [address] [place] [address] 11/21/2023 2:40 PM EDT Office Visit Nephrology, [place] Ren[place] [address] [place] [address] Armando Cook MD [address] [place] [address] [place] [address] 11/29/2023 7:50 AM EDT Laboratory [facility] [address] [place] [address] [phone] [place] [address] 11/29/2023 9:00 AM EDT Hem/Onc Treatment Hematology/Oncology Treatment, [place] [address] [place] [phone] [place], Chair 10 Hem Onc Scenery [address] [place] [address] 11/29/2023 5:30 PM EDT Anticoagulation Pharmacy, [address] [place] [address] [place] [address] 12/09/2023 3:30 PM EDT Office Visit [facility] Tyree UGARTE [address] [place] [phone] Rosalio Amaral MD [address] [place] [address] 12/15/2023 8:30 AM EDT Office Visit Cardiology, [facility] [address] [place] [address] Beth Gibbs CRNP [address] [place] [address] 12/29/2023 9:00 AM EDT Office Visit Otolaryngology [facility] [address] [place] [address] Haley Aguero PA-C [address] [place] [address] 03/08/2024 9:00 AM EDT Office Visit Cardiology [address] [place] [address] Tim Ruiz PA-C [address] [place] [address] 10/30/2024 1:45 PM EST Office Visit Urology, [facility] [address] [place] [address] Devyn Paniagua MD 27 [facility] [address] [place] [address] Health Maintenance Due Date Last [...] Additional history exists CKD HGB USE SMARTSET 42213 11/13/202411/13, 11/14/2023, 10/28/2023, Additional history exists CKD PHOS USE SMARTSET 93637 11/13/2024 03/0 12/2023, 10/28/2023, 08/16/2023, Additional history [...] this encounter Medical Devices Implanted Type Area Case Management Associate Device Identifier Shelf Expiration Date Model / Serial / Lot Port Power Mri W/8fr Cath - [id number] Implanted:Qty: 1 on 09/26/2020 by Simone Michelle MD at OR [facility] Right: Chest CR BARD : PERIPHERAL VASCULAR 10/12/2021 [id number] / / [id number] Description:right IJ Lens Intraoc 19.0 - [id number] - [id number] Implanted:Qty: 1 on 02/03/2021 by Chris Sexton MD at OR [facility] Right: Eye [employer] 09/11/2025 [id number] / [id number] / Lens Intraoc 19.0 - [id number] - [id number] Implanted:Qty: 1 on 02/24/2021 by Chris Sexton MD at OR [facility] Left: Eye [employer] 10/12/2025 [id number] / [id number] / [id number] System Urolift - [id number] Implanted:Qty: 2 on 03/17/2023 by Devyn Paniagua MD at OR [facility] N/A: Urethra [employer] 11/18/2023 [id number] / / [id number] System Urolift - [id number] Implanted:Qty: 3 on 03/17/2023 by Devyn Paniagua MD at OR [facility] N/A: Urethra [employer] 11/03/2023 [id number] / / [id number] documented as of this encounter Visit Diagnoses Diagnosis PAF (paroxysmal atrial fibrillation) (HCC)- Primary Atrial fibrillation documented in this encounter Additional Health Concerns [...] and were consensually agreed upon. Care Teams Roof Slater Relationship Specialty Start Date End Date Jaime Garcia MD [address] [place] [address] [place] [phone] PCP - General Family Medicine 10/15/20 documented as of this encounter"
--- OUTSIDE RECORDS SUMMARY | 2023-12-07 07:51 | External Medical Summary | Summary of Care ---
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; Multiple myeloma without remission (HCC); Multiple myeloma in relapse (HCC); Lambda light chain myeloma (HCC); Type 2 diabetes mellitus with stage 3b chronic kidney disease, without long-term current use of insulin (HCC); Cardiac amyloidosis (HCC); Chronic diastolic congestive heart failure (HCC); 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 180 Tablet 1 3 Active Pen [place] 32G X 4 MM Use as directed. [...] disease, without long-term current use of insulin ([facility]) Use as directed to check blood sugars [...] Information Patient not taking.Reported on 10/04/2023 Nystatin [id number] UNIT/ML Mouth/Throat SuspensionIndicatio ns:Multiple myeloma in relapse ([facility]) Swish and swallow 5 mL in the [...] ns:Atrial fibrillation, unspecified type (HCC),Anticoagulati on management encounter,correction current use of anticoagulant therapy,Paroxysmal [...] Hyperlipidemia with target LDL less than 70 01/2 04/2022 Coronary artery disease, non-occlusive 2 Current chronic [...] Care Team (Late st Contact Info) Description 11/14/2023 8:30 AM EST Hem/Onc Treatment Hematology/Oncology Treatment, [place] [address] [place] [phone] [place], Chair 4 Hem Onc Scenery [address] [place] [address] Arrived 11/16/2023 8:30 AM EST Anticoagulation Pharmacy, [address] [place] [address] [place] [address] 11/18/2023 2:30 PM EST [facility] Visit [facility] [address] [place] [address] Sulma Seth, RN [address] [place] [address] 11/21/2023 2:40 PM EDT Office Visit Nephrology, [facility] [address] [place] [address] Armando Cook MD [address] [place] [address] 12/09/2023 3:30 PM EDT Office Visit [facility] Tyree UGARTE [address] [facility] [place] [address] Rosalio Amaral MD [address] [place] [address] 12/15/2023 8:30 AM EDT Office Visit Cardiology, [facility] [address] [place] [address] Beth Gibbs CRNP [address] [place] [address] 12/29/2023 9:00 AM EDT Office Visit Otolaryngology [facility] [address] [place] [address] Haley Aguero PA-C [address] [place] [address] 03/08/2024 9:00 AM EDT Office Visit Cardiology [address] [place] [address] Tim Ruiz PA-C [address] [place] [address] 10/30/2024 1:45 PM EST Office Visit Urology, [facility] [address] [place] [address] Devyn Paniagua MD [address] 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 11/14/2023 7:41 AM EST COMPREHENSIVE METABOLIC PANEL Lab STAT Multiple myeloma without remission (HCC) 11/14/2023 7:41 AM EST PHOSPHORUS Lab STAT Multiple myeloma in relapse (HCC) 11/14/2023 7:41 AM EST 25-HYDROXY VITAMIN D Lab STAT Lambda light chain myeloma (HCC) Multiple myeloma without remission (HCC) 11/14/2023 7:41 AM EST URIC ACID Lab Routine Multiple myeloma in relapse (HCC) 11/14/2023 7:41 AM EST SERUM PROTEIN ELECTROPHORESIS REFLEX PROFILE Lab STAT Lambda light chain myeloma (HCC) 11/14/2023 7:41 AM EST SERUM FREE LIGHT CHAINS Lab STAT Lambda light chain myeloma (HCC) 11/14/2023 7:41 AM EST Health Maintenance Due Date Last Done Comments HIV Screening 1985 Hepatitis C Screening 01/29/1988 Cologuard 2015 Fecal Occult Blood Test 2015 Sigmoidoscopy 2015 COVID-19 Vaccine (3 - Pfizer risk series) 11/03/2021 10/06/2021, 06/23/2021 Depression Screening 01/05/2022 01/05/2021 Diabetic Foot Exam 12/14/2022 12/14/2021, 0 10/15/2020, 06/25/2019 HbA1c 01/05/2024 07/06/2023, 08/0 11/2022, 03/29/2023, Additional history exists GFR 05/13/2024 11/11/2023, 03/0 09/2023, 10/28/2023, Additional history exists Pneumococcal Vaccine: Pediatrics (0 to 5 Years) and At-Risk Patients (6 to 64 Years) (3 of 3 - PPSV23 or PCV20) 05/22/2024 05/13/2020, 05/22/2019 Diabetic Eye Exam 07/11/2024 07/11/2023, , 07/05/2022, Additional history exists TSH 07/25/2024 07/25/2023, 03/12, 01/31/2023, Additional history exists Albumin/Creatinine Ratio 09/08/2024 023, 06/22/2023, 05/27/2023, Additional history exists CKD HGB USE SMARTSET 88005 10/28/202411/13, 11/14/2023, 10/28/2023, Additional history exists CKD PHOS USE SMARTSET 93656 10/28/202410/13, 08/16/2023, 07/25/2023, Additional history exists DTaP,Tdap,and Td Vaccines (2 [...] this encounter Medical Devices Implanted Type Area Bean Picker Machine Operator Device Identifier Shelf Expiration Date Model / Serial / Lot Port Power Mri W/8fr Cath - [id number] Implanted:Qty: 1 on 09/26/2020 by Simone Michelle MD at OR [facility] Right: Chest CR BARD : PERIPHERAL VASCULAR 10/12/2021 [id number] / / [id number] Description:right IJ Lens Intraoc 19.0 - [id number] - [id number] Implanted:Qty: 1 on 02/03/2021 by Chris Sexton MD at OR [facility] Right: Eye [employer] 09/11/2025 [id number] / [id number] / Lens Intraoc 19.0 - [id number] - [id number] Implanted:Qty: 1 on 02/24/2021 by Chris Sexton MD at OR [facility] Left: Eye [employer] 10/12/2025 [id number] / [id number] / [id number] System Urolift - [id number] Implanted:Qty: 2 on 03/17/2023 by Devyn Paniagua MD at OR [facility] N/A: Urethra [employer] 11/18/2023 [id number] / / [id number] System Urolift - [id number] Implanted:Qty: 3 on 03/17/2023 by Devyn Paniagua MD at OR [facility] N/A: Urethra [employer] 11/03/2023 [id number] / / [id number] documented as of this encounter Procedures Procedure Name Priority Date/Time Associated Diagnosis Comments DIFFERENTIAL, AUTOMATED STAT 11/14/2023 7:41 AM EST Multiple myeloma without remission (HCC) CBC STAT 11/14/2023 7:41 AM EST Multiple myeloma without remission (HCC) CBC STAT 11/14/2023 7:41 AM EST Multiple myeloma without remission (HCC) documented in this encounter Results * (ABNORMAL) DIFFERENTIAL, AUTOMATED (11/14/2023 7:41 AM EST) WBC 7.14 4.00 - 10.80 K/uL 11/14/2023 7:48 AM EST [facility] 56-02 Neutrophils % 74.8 40.0 - 75.0 % 11/14/2023 7:48 AM [facility] 56- Lymphocytes % 6.9(L) 18.0 - 42.0 % 11/14/2023 7:48 AM [facility] 56- Monocytes % 15.3(H) 1.0 - 11.0 % 11/14/2023 7:48 AM EST [facility] 56 Eosinophils % 2.7 0.0 - 6.0 % 11/14/2023 7:48 AM [facility] 56- Basophils % 0.3 0.0 - 2.0 % 11/14/2023 7:48 AM [facility] 56 Absolute Neutrophils 5.35 1.80 - 7.70 K/uL 11/14/2023 7:48 AM [facility] 56- Absolute Lymphocytes 0.49(L) 1.00 - 4.80 K/ul 11/14/2023 7:48 AM [facility] 56 Absolute Monocytes 1.09 0.00 - 1.10 K/uL 11/14/2023 7:48 AM [facility] 56 Absolute Eosinophils 0.19 0.00 - 0.70 K/uL 11/14/2023 7:48 AM [facility] 56 Absolute Basophils 0.02 0.00 - 0.20 K/uL 11/14/2023 7:48 AM [facility] 56 Blood Venous blood specimen / Unknown Venipuncture / Unknown 11/14/2023 7:41 AM EST 11/14/2023 7:41 AM EST Rosalio Amaral MD LAB BLOOD ORDERABLES [facility] [address] [place] [address] * (ABNORMAL) CBC (11/14/2023 7:41 AM EST) WBC 7.14 4.00 - 10.80 K/uL 11/14/2023 7:48 AM [facility] 56 RBC 4.35 4.50 - 5.25 M/uL 11/14/2023 7:48 AM [facility] 56 HGB 13.8(L) 14.0 - 16.8 g/dL 11/14/2023 7:48 AM EST [facility] 56 HCT 41.0 40.0 - 48.4 % 11/14/2023 7:48 AM [facility] 56 MCV 94.3 82.0 - 99.5 fL 11/14/2023 7:48 AM EST [facility] 56 MCH 31.7 27.0 - 34.0 pg 11/14/2023 7:48 AM EST [facility] 56 MCHC 33.7 32.0 - 36.0 g/dL 11/14/2023 7:48 AM EST [facility] 56 RDW 15.9 11.5 - 15.5 % 11/14/2023 7:48 AM EST [facility] 56 PLT 346 140 - 400 K/uL 11/14/2023 7:48 AM [facility] 56 MPV 9.9 6.6 - 11.1 fL 11/14/2023 7:48 AM [facility] Blood Venous blood specimen / Unknown Venipuncture / Unknown 11/14/2023 7:41 AM EST 11/14/2023 7:41 AM EST Rosalio Amaral MD LAB BLOOD ORDERABLES [facility] [address] [place] [address] documented in this encounter Visit Diagnoses Diagnosis PAF (paroxysmal atrial fibrillation) (HCC) Atrial fibrillation Anticoagulation management encounter Encounter for therapeutic drug monitoring 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 Multiple myeloma without remission (HCC) Multiple myeloma, without mention of having achieved remission Multiple myeloma in relapse (HCC) Multiple myeloma, in relapse Lambda light chain myeloma (HCC) Multiple myeloma, without mention of having achieved remission Type 2 diabetes mellitus with stage 3b chronic kidney disease, without long-term current use of insulin (HCC) Cardiac amyloidosis (HCC) Other amyloidosis Chronic diastolic congestive heart failure (HCC) Chronic diastolic heart failure 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 Care Teams Sod Cutter Relationship Specialty Start Date End Date Jaime Garcia MD [address] [place] [address] [place] [phone] PCP - General Family Medicine 10/15/20 documented as of this encounter
--- OUTSIDE RECORDS SUMMARY | 2023-12-07 07:51 | External Medical Summary ---
Author Name Unknown Address Unknown Organization [id number]:[facility] [address] [place] [address] Laboratory Report Ordering Provider Test Date Status MONIQUE PEREZ 11/14/2023 07:41:01 Final Observation Date Value Abnormality Reference (Units ) Status SYNC LEUKOCYTES IN BLOOD BY AUTOMATED COUNT 11/14/2023 07:41:01 7.14 4.00-10.80 (K/uL) Final Segs 11/14/2023 07:41:01 74.8 40.0-75.0 (%) Final Lymphs % 11/14/2023 07:41:01 6.9 Below low normal 18.0-42.0 (%) Final Monos 11/14/2023 07:41:01 15.3 Above high normal 1.0-11.0 (%) Final Eosinophils 11/14/2023 07:41:01 2.7 0.0-6.0 (%) Final Basos 11/14/2023 07:41:01 0.3 0.0-2.0 (%) Final Absolute Segs 11/14/2023 07:41:01 5.35 1.80-7.70 (K/uL) Final Lymphs, absolute 11/14/2023 07:41:01 0.49 Below low normal 1.00-4.80 (K/ul) Final Monos, Abs 11/14/2023 07:41:01 1.09 0.00-1.10 (K/uL) Final Eos, Abs 11/14/2023 07:41:01 0.19 0.00-0.70 (K/uL) Final Basos, Abs 11/14/2023 07:41:01 0.02 0.00-0.20 (K/uL) Final Performing Location [facility] [address] [place] [address]
--- OUTSIDE RECORDS SUMMARY | 2023-12-07 07:51 | External Medical Summary ---
Author Name Unknown Address Unknown Organization [id number]:[facility] [place] - [address] [place] [address] Laboratory Report Ordering Provider Test Date Status MONIQUE PEREZ 11/14/2023 07:41:01 Final Observation Date Value Abnormality Reference (Units ) Status Uric Acid 11/14/2023 07:41:01 7.2 Above high normal 3. 4-7.0 (mg/dL) Final Performing Location [facility] [place] - [address] [place] [address]
--- OUTSIDE RECORDS SUMMARY | 2023-12-07 07:51 | External Medical Summary ---
Author Name Unknown Address Unknown Organization [id number]:[facility] [address] [place] [address] Laboratory Report Ordering Provider Test Date Status TASNEEM SLAUGHTER 11/14/2023 07:41:01 Final Warfarin Therapy
INR: 2 .0-3.0 conventional anticoagulation
INR: 2.5- 3.5 high intensity anticoagulation Observation Date Value Abnormality Reference (Units ) Status PT 11/14/2023 07:41:01 16.8 Above high normal 11 .6-15.2 (seconds) Final INR 11/14/2023 07:41:01 1.4 Above high normal 0. 8-1.2 Final Performing Location [facility] [place] [address]
--- OUTSIDE RECORDS SUMMARY | 2023-12-07 07:51 | External Medical Summary | Summary of Care ---
Author Name Unknown Organization [facility] Address [address] [place] [address] Phone [phone] Care Team Providers Care Baseball Scout Name Role Phone Jaime Garcia MD Primary Care Provide r Encounter Details Date Type Department Care Team (Late st Contact Info) Description 11/10/2023 10:00 AM EST Telemedicine [facility] Tyree UGARTE [address] [facility] [place] [address] Rosalio Amaral MD [address] [facility] [place] [address] Multiple myeloma in relapse (HCC)* Allergies Active Allergy Reactions Criticality Noted Date Comments Atorvastatin Muscle pain High 03/30/2019 Ezetimibe Muscle pain High 01/25/2020 documented as of this encounter (statuses as of 11/10/2023) Medications Medication Sig Dispensed Refills Start Date [...] hemoglobin A1c goal of less than 7.0% ([facility]) Test once daily DxE11.9. 100 Each 5 1 Active Albuterol Sulfate HFA 108 (90 Base) MCG/ACT Inhalation Aerosol SolutionIndication s:Acute bronchitis, antibiotics not indicated Inhale 2 Puffs by mouth every 6 hours as needed for Cough or Shortness of Breath. 54 g 1 1 Active Acyclovir 400 MG Oral Tablet (Zovirax)Indicatio ns:Lambda light chain myeloma ([facility]) Take one tablet once daily 180 [...] (Decadron)Indicati ons:Multiple myeloma not having achieved remission ([facility]) 5 tabs 2 times monthly 10 [...] Information Patient taking differently: 50 mcg Oral [id number], Reported on 04/14/2023 Finasteride 5 MG Oral [...] hemoglobin A1c goal of less than 7.0% ([facility]) Take 2 Tablets by mouth in the morning. 180 Tablet 1 3 Active Pen [place] 32G X 4 MM Use as directed. [...] disease, without long-term current use of insulin ([facility]) Use as directed to check blood [...] Information Patient not taking.Reported on 10/04/2023 Nystatin 317927 UNIT/ML Mouth/Throat SuspensionIndicati ons:Multiple myeloma in relapse ([facility]) Swish and swallow 5 mL in the [...] Tablet (Oxy IR)Indications:Mul tiple myeloma in relapse ([facility]) Take 1 Tablet by mouth every 4 hours as needed for breakthrough pain. 30 Tablet 0 4 Active Allopurinol 100 MG Oral Tablet (Zyloprim)Indicati ons:Multiple myeloma in relapse (HCC) Take 1 Tablet by mouth in the morning. 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 180 Tablet 3 4 Active Magnesium Chloride 64 MG Oral Tablet Delayed Release (Mag64) Take 1 Tablet by mouth in the morning and 1 Tablet before bedtime. 0 11/10/19 24 Discontinu ed(Refill) documented as of this encounter (statuses as of 11/10/2023) Active Problems Problem Noted Date Diagnosed Date [...] as of this encounter (statuses as of 11/10/2023) Resolved Problems Problem Noted Date Diagnosed Date [...] as of this encounter (statuses as of 11/10/2023) Immunizations Name Administration Dates Next Due COVID-19, [...] as of this encounter Progress Notes * Rosalio Amaral MD - 11/10/2023 4:29 PM EST CLINIC NOTES JERARDO WALTON MR #[id number] : 1970 This was a telephone visit Informed consent obtained 11/10/2023 PATIENT REFERRED BY: Jaime Garcia MD. Also [...] neuropathy. INTERIM: The patient was last reviewed 10/11/2023 he had been off therapy for a period of time. At that time, he just started back on daratumumab. He had his carfilzomib held because of possible issues with congestive heart failure and a 5% drop off of his ejection fraction clinically having developed heart failure. He had actually even had his Xgeva held. He was having issues with infections and had been on multiple rounds of antibiotics. Family membersin his house had been sick. He had [...] was to be considered for CAR-T therapy. He was reviewed reviewed by Cardiology who was impressed that he had significant hypotension and felt as though He likely had autonomic dysfunction, he is also having swallowing issues despite a negative swallowing study in April of 2023 Patient has cut out his diuretics his weight has been stable he has less lower extremity edema he has been taking less p.o. overall He has not been evaluated by speech pathology He had been off chemo since around June 2023- he was just started back in October 2023. Has been having some diarrhea again previously recurrent Salmonella x2 He has not appointment at [place] tomorrow for pre testing He is due for cart T evaluation Latest Reference Range & Units 10/17/20 07:43 11/21/20 07:35 12/05/20 08:12 12/19/20 07:37 01/02/21 07:46 01/16/21 07:46 03/03/21 13:59 05/20/21 12:55 09/25/21 08:19 10/22/21 08:18 11/20/21 07: 07:47 01/29/22 08:02 04/02/22 07:44 06/04/22 07:53 06/15/22 13:23 08/12/22 09:33 10/01/22 07:54 10/15/22 07:44 11/12/22 07:38 12/10/22 07:46 01/07/23 08:37 02/04/23 08:47 03/25/23 08:48 04/22/23 08:11 05/27/23 07:51 06/22/23 12:51 09/08/23 12:03 10/28/23 08:04 Lambda Free Light Chains, Serum 5.71 - 26.30 mg/L 50.40 (H) 62.16 (H) 61.24 (H) 65.53 (H) 72.91 (H)71.92 (H) 78.20 (H) 107.00 (H) 128.84 (H) 106.07 (H) 92.94 (H) 76.64 (H) 51.74 (H) 68.12 (H) 57.58 (H) 49.65 (H) 89.65 (H) 116.52 (H) 122.12 (H) 131.87 (H) 111.97 (H) 108.73 (H) 111.85 (H) 107.57 (H)105.43 (H) 113.65 (H) 99.31 (H) 136.31 (H) 145.26 (H) (H): Data is abnormally high MEDICAL ALLERGIES: Atorvastatin, Zetia. MEDICATIONS: Current Outpatient [...] one tablet once daily 180 Tablet 3 Hizentra 4 GM/20ML Subcutaneous Solution [...] mouth in the morning. 180 Tablet 1 Pen [place] 32G X 4 MM Use as directed. [...] EVERY DAYIN THE MORNING 90 Tablet 2 DexGetlenses.[email or web address] G7 Sensor Use as directed to check [...] in the morning every other day. (Patient not taking: Reported on 10/04/2023) 100 Tablet 3 Nystatin 922505 UNIT/ML Mouth/Throat Suspension Swish and swallow 5 mL in the morning and 5 mL at noon and 5 mL in the evening and 5 mL before bedtime. (Patient not taking: Reported on 10/04/2023) 60 mL 1 Vemlidy 25 MG Oral [...] as needed for Nausea. 40 Tablet 0 Ondansetron 4 MG Oral Tablet Disintegrating (Zofran) Potassium Chloride ER 20 MEQ Oral Tablet Extended Release Take 1 Tablet by mouth in the morning. Advanced Probiotic 10 Oral Capsule 1 Capsule in the morning. NSS 0.9 % SOLN 100 mL with cefTRIAXone 2 GM SOLR 2 g Administer 2 g intravenously daily. oxyCODONE HCl 5 MG Oral Tablet (Oxy [...] BY MOUTH EVERY DAY 90 Tablet 1 No current facility-administered medications for this visit. PAST SURGICAL HISTORY: See note from 01/22/2019. PAST MEDICAL HISTORY: See note from 01/22/2019. FAMILY HISTORY: See note from 01/22/2019. REVIEW OF SYSTEMS: ECOG performance status: 0. Constitutional: Negative. See HPI for pertinent positives otherwise negative review of systems. PHYSICAL EXAMINATION: phone visit Results for orders placed or performed in visit on 09/08/23 CBC Result Value Ref Range WBC 10.15 4.00 - 10.80 K/uL RBC 3.53 4.50 - 5.25 M/uL HGB 11.4 (L) 14.0 - 16.8 g/dL HCT 35.8 (L) 40.0 - 48.4 % MCV 101.4 82.0 - 99.5 fL MCH 32.3 27.0 - 34.0 pg MCHC 31.8 32.0 - 36.0 g/dL RDW 16.6 11.5 - 15.5 % PLT 367 140 - 400 K/uL MPV 9.6 6.6 - 11.1 fL nRBCs 0 <=0 /100 WBCs IMPRESSION: Patient with stable protein number but [...] post recent salmonella sepsis hospitalized at the [place] Likely autonomic dysfunction, manifested by orthostatic hypotension, dysphagia, gastric emptying PLAN: For possible cart Continue newly Resumed chemo Monthly returns for now Will send again for Salmonella as he was having intermittent diarrhea-[facility] minutes of phone time; 30 minute visit This was a telephone visit. 13 minutes of medical discussion Rosalio Amaral MD documented in this encounter Plan of Treatment Upcoming Encounters Date Type Department Care Team (Late st Contact Info) Description 11/14/2023 7:20 AM EST Laboratory Laboratory [facility] [place] [address] [place] [phone] [place], Lab [address] [place] [address] 11/14/2023 8:30 AM EST Hem/Onc Treatment Hematology/Oncology Treatment, [place] [address] [place] [phone] [place], Chair [address] Hem On[address] [facility] [address] [facility] [place] [address] 11/16/2023 8:30 AM EST Anticoagulation Pharmacy, [address] [place] [address] [place] [address] 11/18/2023 2:30 PM EST [facility] Visit [facility], [facility] [address] [facility] [place] [address] Sulma Seth, BOBBY [address] [facility] [place] [address] 11/21/2023 2:40 PM EDT Office Visit Nephrology, [facility] [place] [address] [place] [address] Armando Cook MD [address] [place] [address] 12/09/2023 3:30 PM EDT Office [facility] Tyree UGARTE [address] [place] [address] Rosalio Amaral MD [address] [place] [address] 12/15/2023 8:30 AM EDT Office Visit Cardiology, [facility] [address] [facility] [place] [address] Beth Gibbs CRNP [address] [place] [address] 12/29/2023 9:00 AM EDT Office Visit Otolaryngology [facility] [address] [facility] [place] [address] Haley Aguero PA-C [address] [place] [address] 03/08/2024 9:00 AM EDT Office Visit Cardiology [address] [place] [address] Tim Ruiz PA-C [address] [place] [address] 10/30/2024 1:45 PM EST Office Visit Urology, [facility] [address] [facility] [place] [address] Devyn [facility]aniagua [facility] [address] [place] [address] Scheduled Orders Name Type Priority Associated Diagnoses Orde r Schedule GASTROINTESTINAL PATHOGEN PANEL, STOOL Lab Routine Multiple myeloma in relapse (HCC) Expected: 11/11/2023 (Approximate), Expires: 11/09/2024 Health Maintenance Due Date Last Done Comments HIV Screening 1985 Hepatitis C Screening 01/29/1988 Cologuard 2015 Fecal Occult Blood Test 2015 Sigmoidoscopy 2015 COVID-19 Vaccine (3 - Pfizer risk series) 11/03/2021 10/06/2021, 06/23/2021 Depression Screening 01/05/2022 01/05/2021 Diabetic Foot Exam 12/14/2022 12/14/2021, 0 10/15/2020, 06/25/2019 HbA1c 01/05/2024 07/06/2023, 08/0 11/2022, 03/29/2023, Additional history exists GFR 04/27/2024 10/28/2023, 09/12, 09/08/2023, Additional history exists Pneumococcal Vaccine: Pediatrics (0 to 5 Years) and At-Risk Patients (6 to 64 Years) (3 of 3 - PPSV23 or PCV20) 05/22/2024 05/13/2020, 05/22/2019 Diabetic Eye Exam 07/11/2024 07/11/2023, , 07/05/2022, Additional history exists TSH 07/25/2024 07/25/2023, 03/12, 01/31/2023, Additional history exists Albumin/Creatinine Ratio 09/08/2024 023, 06/22/2023, 05/27/2023, Additional history exists CKD HGB USE SMARTSET 66787 10/28/202410/28, 10/28/2023, 09/08/2023, Additional history exists CKD PHOS USE SMARTSET 98207 10/28/202410/13, 08/16/2023, 07/25/2023, Additional history exists DTaP,Tdap,and [...] this encounter Medical Devices Implanted Type Area Measurement And Verification Engineer Device Identifier Shelf Expiration Date Model / Serial / Lot Port Power Mri W/8fr Cath - [id number] Implanted:Qty: 1 on 09/26/2020 by Simone Michlele MD at OR [facility] Right: Chest CR BARD : PERIPHERAL VASCULAR 10/12/2021 [id number] / / [id number] Description:right IJ Lens Intraoc 19.0 - [id number] - [id number] Implanted:Qty: 1 on 02/03/2021 by Chris Sexton MD at OR [facility] Right: Eye [employer] 09/11/2025 [id number] / [id number] / Lens Intraoc 19.0 - [id number] - [id number] Implanted:Qty: 1 on 02/24/2021 by Chris Sexton MD at OR [facility] Left: Eye [employer] LOMB 10/12/2025 [id number] / [id number] / [id number] System Urolift - [id number] Implanted:Qty: 2 on 03/17/2023 by Devyn Paniagua MD at OR [facility] N/A: Urethra [employer] 11/18/2023 [id number] / / [id number] System Urolift - [id number] Implanted:Qty: 3 on 03/17/2023 by Devyn Paniagua MD at OR [facility] N/A: Urethra [employer] 11/03/2023 [id number] / / [id number] documented as of this encounter Visit Diagnoses [...] and were consensually agreed upon. Care Teams Baseball Scout Relationship Specialty Start Date End Date Jaime Garcia MD [address] [place] [address] [place] [phone] PCP - General Family Medicine 10/15/20 documented as of this encounter
--- OUTSIDE RECORDS SUMMARY | 2023-12-07 07:51 | External Medical Summary ---
Author Name Unknown Address Unknown Organization [id number]:[facility] [place] [facility] [place] [address] Laboratory Report Ordering Provider Test Date Status MONIQUE PEREZ 11/14/2023 07:41:01 Final Observation Date Value Abnormality Reference (Units ) Status [place] light chains, Free, Serum 11/14/2023 07:41:01 4.18 3.30-19.40 (mg/L) Final Lambda light chains, free, Serum 11/14/2023 07:41:01 111.08 Above high normal 5.71-26.30 (mg/L) Final KAPPA LAMBDA FLC RATIO 11/14/2023 07:41:01 0.04 Below low normal 0.26-1.65 Final Performing Location [facility] [place] [facility] [place] [address]
--- OUTSIDE RECORDS SUMMARY | 2023-12-07 07:51 | External Medical Summary | Summary of Care ---
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) Procedures NH DARATUMUMAB, HYALURONIDASE NH CYCLOPHOSPHAMIDE 100 MG INJ Rosalio Amaral MD [facility] [place] [address] Anc Hem/Onc [facility] DEPT CLOSED - 07/26/23 [address] [place] [phone] Referral ID Status Reason Start Date Expiration Date V isits Requested Visits Authorized [id number] Authorized 10/21/2023 10/21/[phone] Encounter Details Date Type Department Care Team (Latest Contact Info) Description 11/14/2023 8:30 AM EST Hem/Onc Treatment Hematology/Oncology Treatment, [place] [address] [place] [phone] [place], Chair 4 Hem Onc [place] [address] [place] [address] Lambda light chain myeloma (HCC)*; AL amyloidosis (HCC) Allergies Active Allergy Reactions Criticality Noted [...] Information Patient taking differently: 50 mcg Oral [id number], Reported on 04/14/2023 Finasteride 5 MG Oral [...] hemoglobin A1c goal of less than 7.0% ([facility]) Take 2 Tablets by mouth in the morning. 180 Tablet 1 3 Active Pen [place] 32G X 4 MM Use as directed. 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 Ensure appropriate safety devices are available. Provide and maintain safe environment. Functional status at today's visit: Fully active, able to carry on all pre-disease performance without restriction The drug name, dose, infusion volume, rate and route of administration, expiration date and time, appearance and physical integrity of the drug and rate set on the pump and sequencing of drug administration (as applicable) were verified by me and second sign-in RN. Patient was assessed for symptoms or adverse side effects during treatment. Goals: Patient here for Cytoxan and Darzalex Faspro sq. Patient reports nausea, vomiting a few times between treatments. He takes compazine as needed. He also reports neuropathy, diarrhea and reportshe hasn't had a bowel movement for 5 days. He took Miralax Fri and will take Miralax again today. He reports no abdominal pain or any other issues from not having a bowel movement. He is aware to call with any questions or concerns if he doesn't have a bowel movement today. Possible barriers to meeting goals: IV pole and central line. Stability of the patient: Moderately stable - low risk of patient condition declining or worsening Summary regarding today's goals: Met: Patient received treatment without any issues. documented in this encounter Plan of Treatment Upcoming Encounters Date Type Department Care Team (Late st Contact Info) Description 11/14/2023 5:30 PM EST Anticoagulation Pharmacy, [address] [place] [phone] [address] [place] [address] 11/16/2023 8:30 AM EST Anticoagulation Pharmacy, [address] [place] [address] [place] [address] 11/18/2023 2:30 PM EST [facility] [place] [address] Sulma Seth, BOB[place] [address] [place] [address] 11/21/2023 2:40 PM EDT Office Visit Nephrology, [facility] 200 [facility] [place] [address] Armando Cook MD 200 [facility] [place] [address] 11/29/2023 7:50 AM EDT Laboratory Laboratory [facility] [place] [address] [facility] [place] [address] [place], Lab [address] [place] [address] 11/29/2023 9:00 AM EDT [facility] [address] [place] [phone] [place], Chair 10 Hem Onc [facility] 200 [facility] [place] [address] 12/09/2023 3:30 PM EDT Office Visit [facility] Tyree UGARTE [address] [facility] [place] [address] Rsoalio Amaral MD [address] [facility] [place] [address] 12/15/2023 8:30 AM EDT Office Visit Cardiology, [facility] [address] [place] [address] Beth Gibbs CRNP [address] [place] [address] 12/29/2023 9:00 AM EDT Office Visit Otolaryngology [facility] [address] [place] [address] Haley Aguero PA-C [address] [place] [address] 03/08/2024 9:00 AM EDT Office Visit Cardiology [address] [place] [address] Tim Ruiz PA-C [address] [place] [address] 10/30/2024 1:45 PM EST Office Visit Urology, [facility] [address] [place] [address] Devyn Paniagua MD 27 [facility] [address] [place] [address] Health Maintenance Due Date Last Done Comments [...] Additional history exists CKD HGB USE SMARTSET 04489 11/13/202411/13, 11/14/2023, 10/28/2023, Additional history exists CKD PHOS USE SMARTSET 53246 11/13/2024 03/0 12/2023, 10/28/2023, 08/16/2023, Additional history [...] this encounter Medical Devices Implanted Type Area Paper Machine Operator Device Identifier Shelf Expiration Date Model / Serial / Lot Port Power Mri W/8fr Cath - [id number] Implanted:Qty: 1 on 09/26/2020 by Simone Michelle MD at [facility] Right: Chest CR BARD : PERIPHERAL VASCULAR 10/12/2021 [id number] / / [id number] Description:right IJ Lens Intraoc 19.0 - [id number] - [id number] Implanted:Qty: 1 on 02/03/2021 by Chris Sexton MD at OR [facility] Right: Eye [employer]USCH [employer]OM[employer] 09/11/2025 [id number] / [id number] / Lens Intraoc 19.0 - [id number] - [id number] Implanted:Qty: 1 on 02/24/2021 by Chris Sexton MD at OR [facility] Left: Eye BAUSCH [employer] LOMB 10/12/2025 [id number] / [id number] / [id number] System Urolift - [id number] Implanted:Qty: 2 on 03/17/2023 by Devyn Paniagua MD at OR [facility] N/A: Urethra [employer] 11/18/2023 [id number] / / [id number] System Urolift - [id number] Implanted:Qty: 3 on 03/17/2023 by Devyn Paniagua MD at OR [facility] N/A: Urethra [employer] 11/03/2023 [id number] / / [id number] documented as of this encounter Visit Diagnoses Diagnosis Lambda light chain myeloma (HCC)- Primary Multiple myeloma, without mention of having achieved remission AL amyloidosis (HCC) Other amyloidosis documented in this encounter Administered Medications Active Administered Medications - up to 3 most recent administrations Medication Order MAR Action Action Date Dose Rate Site diphenhydrAMINE (Benadryl) inj 50 mg 50 mg, IV Push, ONCE PRN Other, Hypersensitivity Reaction, Starting on Tue11/14/23 at 0826, Until Tue11/15/23 at 0825, For 24 hours EPINEPHrine 1 MG/ML inj 0.3 mg 0.3 mg, Intramuscular, ONCE PRN Other, Hypersensitivity Reaction or Anaphylaxis, Starting on Tue11/14/23 at 0826, Until Tue11/15/23 at 0825, For 24 hours hEParin 100 UNIT/ML Lock Flush inj 500 Units 500 Units (5 mL), IV Lock, PRN Other, IV Flush, Starting on Tue11/14/23 at 0827, Until Tue11/15/23 at 0826, For 24 hours, Do not flush if lock, PICC, or central line not in place; IV infusing or unable to flush. Given 11/14/2023 9:36 AM EST 500 Units Hydrocortisone Sod Suc (PF) (Solu-Cortef) inj 100 mg 100 mg, IV Push, ONCE PRN Other, Hypersensitivity Reaction, Starting on Tue11/14/23 at 0826, Until Tue11/15/23 at 0825, For 24 hours meperidine (Demerol) 25 MG/ML inj 25 mg 25 mg, IV Push, ONCE PRN Shivering, Starting on Tue11/14/23 at 0826, Until Tue11/15/23 at 0825, For 24 hours NSS infusion 500 mL, Intravenous, at 50 mL/hr, CONTINUOUS, Starting on Tue11/14/23 at 0930, Until Tue11/14/23 at 1929 Start Infusion 11/14/2023 8:45 AM EST 500 mL 50 mL/hr sodium chloride 0.9 % flush central line 10 mL 10 mL, IV Push, PRN Other, IV Flush, Starting on Tue11/14/23 at 0827, Until Tue11/15/23 at 0826, For 24 hours, Do not flush if lock, PICC, or central line not in place; IV infusing or unable to flush. Given 11/14/2023 9:36 AM EST 10 mL Inactive Administered Medications - up to 3 most recent administrations Medication Order MAR Action Action Date Dose Rate Site Acetaminophen (Tylenol) tab 650 mg 650 mg, Oral, ONCE, On Tue11/14/23 at 0845, For 1 dose, Maximum of 4 grams (4000 mg) per day. Given 11/14/2023 8:51 AM EST 650 mg cycloPHOSphamide (Cytoxan) 500 mg in NSS 250 mL infusion 500 mg, IV Piggyback, at 500 mL/hr Administer over 30 Minutes, Cyclophosphamide doses over 1g should be in 500 mL. May extend infusion to 1 hour if not tolerated., ONCE, 1 dose, On Tue11/14/23 at 0900 Start Infusion 11/14/2023 9:00 AM EST 500 mg 500 mL/hr Daratumumab-hyaluronidas e-fihj (Darzalex Faspro) 1800 mg-83197 units/ 15 ml subcut inj 15 mL, Subcutaneous, ONCE, On Tue11/14/23 at 1030, For 1 dose, Inject subcutanteously into abdomen over 3 to 5 minutes Given 11/14/2023 9:00 AM EST 15 mL Abdomen Right Upper dexAMETHasone (Decadron) tab 20 mg 20 mg, Oral, ONCE, On Tue11/14/23 at 0845, For 1 dose Given 11/14/2023 8:51 AM EST 20 mg diphenhydrAMINE (Benadryl) cap 25 mg 25 mg, Oral, ONCE, On Tue11/14/23 at 0845, For 1 dose Given 11/14/2023 8:51 AM EST 25 mg Famotidine (Pepcid) tab 10 mg 10 mg, Oral, ONCE, On Tue11/14/23 at 0845, For 1 dose Given 11/14/2023 8:51 AM EST 10 mg documented in this encounter Additional Health Concerns [...] and were consensually agreed upon. Care Teams Grey Goods Examiner Relationship Specialty Start Date End Date Jaime Garcia MD [address] [place] [address] [place] [phone] PCP - General Family Medicine 10/15/20 documented as of this encounter
--- OUTSIDE RECORDS SUMMARY | 2023-12-07 07:51 | External Medical Summary ---
Author Name Unknown Address Unknown Organization K09:[facility] [address]la Rod[address] [place] [address] Laboratory Report Ordering Provider Test Date Status MONIQUE PEREZ 11/14/2023 07:41:01 Final Observation Date Value Abnormality Reference (Units ) Status WBC, Total 11/14/2023 07:41:01 7.14 4.00-10.8 0 (K/uL) Final RBC 11/14/2023 07:41:01 4.35 4.50-5.25 (M/uL) Final Hemoglobin 11/14/2023 07:41:01 13.8 Below low normal 14 .0-16.8 (g/dL) Final HCT 11/14/2023 07:41:01 41.0 40.0-48.4 (%) Final MCV 11/14/2023 07:41:01 94.3 82.0-99.5 (fL) Final MCH 11/14/2023 07:41:01 31.7 27.0-34.0 (pg) Final MCHC 11/14/2023 07:41:01 33.7 32.0-36.0 (g/dL) Final RDW 11/14/2023 07:41:01 15.9 11.5-15.5 (%) Final Platelets 11/14/2023 07:41:01 346 140-400 (K /uL) Final MPV 11/14/2023 07:41:01 9.9 6.6-11.1 ( fL) Final Performing Location [facility] Carla Rodrí[place] [address]
--- OUTSIDE RECORDS SUMMARY | 2023-12-07 07:51 | External Medical Summary ---
Author Name Unknown Address Unknown Organization K09:[facility] [address] [place] [address] Laboratory Report Ordering Provider Test Date Status MONIQUE PEREZ 11/14/2023 07:41:01 Final Observation Date Value Abnormality Reference (Units ) Status BUN 11/14/2023 07:41:01 16 6-20 (mg/dL) Final Creatinine 11/14/2023 07:41:01 1.3 Above high normal 0.6-1.2 (mg/dL) Final Glomerular filtration rate/1.73 sq M.predicted [Volume Rate/Area] in Serum, Plasma or Blood by Creatinine-based formula (CKD-EPI) 11/14/2023 07:41:01 65 >=60 (mL/min) Final eGFR is calculated based on the CKD-EPI 2020 equation SODIUM 11/14/2023 07:41:01 140 135-146 (m mol/L) Final Potassium 11/14/2023 07:41:01 4.1 3.5-5.1 (m mol/L) Final Cl 11/14/2023 07:41:01 99 98-107 (mm ol/L) Final CO2 11/14/2023 07:41:01 30 22-32 (mmo l/L) Final Anion gap 11/14/2023 07:41:01 11 7-15 (mmol /L) Final Glucose 11/14/2023 07:41:01 139 Above high normal 70 -120 (mg/dL) Final Albumin 11/14/2023 07:41:01 4.1 3.8-5.0 (g /dL) Final AST (Aspartate aminotransferase) 11/14/2023 07:41:01 16 10-50 (U/L) Fin al Alk Phos 11/14/2023 07:41:01 114 35-130 (U/ L) Final Bilirubin, Total 11/14/2023 07:41:01 0.6 <=1 .2 (mg/dL) Final Calcium 11/14/2023 07:41:01 10.0 8.4-10.2 ( mg/dL) Final Protein 11/14/2023 07:41:01 6.6 6.0-8.3 (g /dL) Final ALT (Alanine aminotransferase) 11/14/2023 07:41:01 17 10-50 (U/L) Renny hickman Performing Location [facility] [address] [place] [address]
--- OUTSIDE RECORDS SUMMARY | 2023-12-07 07:51 | External Medical Summary ---
Author Name Unknown Address Unknown Organization K01:[facility] - [address] [place] [address] Laboratory Report Ordering Provider Test Date Status MONIQUE PEREZ 11/14/2023 07:41:01 Final Observation Date Value Abnormality Reference (Units) Status PARAPROTEIN NORMAL/ABNORMAL 07:41:01 Normal Normal Final Protein 07:41:01 5.9 Below low normal 6.0-8.3 (g/dL) Final Albumin/Protein.tota l [Pure mass fraction] in Serum or Plasma by Electrophoresis 07:41:01 3.35 3.30-4.40 (g/dL) Final Alpha 1 globulin/Protein.tot al [Pure mass fraction] in Serum or Plasma by Electrophoresis 07:41:01 0.24 0.10-0.30 (g/dL) Final Alpha 2 globulin/Protein.tot al [Pure mass fraction] in Serum or Plasma by Electrophoresis 07:41:01 1.09 Above high normal 0.60-1.00 (g/dL) Final Beta globulin/Protein.tot al [Pure mass fraction] in Serum or Plasma by Electrophoresis 07:41:01 0.90 0.80-1.30 (g/dL) Final Gamma globulin/Protein.tot al [Pure mass fraction] in Serum or Plasma by Electrophoresis 07:41:01 0.33 Below low normal 0.70-1.70 (g/dL) Final Protein Fractions [Interpretation] in Serum or Plasma by Electrophoresis Narrative 07:41:01 There is a small irregularity of undetermined clinical significance in the gamma fraction. See serum immunofixation results from 11-15-2023. Final Performing Location [facility] - [address] [place] [address]
--- OUTSIDE RECORDS SUMMARY | 2023-12-07 07:52 | External Medical Summary | Summary of Care ---
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 Test [...] (Decadron)Indicati ons:Multiple myeloma not having achieved remission ([facility]) 5 tabs 2 times monthly [...] Information Patient taking differently: 50 mcg Oral [id number], Reported on 04/14/2023 Finasteride 5 MG Oral [...] morning. 180 Tablet 1 3 Active Pen [place] 32G X 4 MM Use as directed. Inject Lantus once daily. 50 Each 3 3 Active Icosapent Ethyl 1 GM Oral Capsule (Vascepa)Indicatio ns:Hyperlipidemia with target LDL less than 70 Take 2 Capsules by mouth 2 times a day with morning and evening meals. Swallow capsules whole, do not open or break. 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,Paroxysmal atrial fibrillation (HCC) Take up to one tablet by mouth daily as directed by anticoagulation clinic 90 Tablet 3 4 Active Warfarin Sodium 2.5 MG Oral Tablet (Coumadin)Indicati ons:Atrial fibrillation, unspecified type (HCC),Anticoagulat ion management encounter,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,Paroxysmal atrial fibrillation (HCC) TAKE ONE TABLET BY MOUTH ON TUESDAY AND TUESDAY, AND ONE-HALF TABLET ALL OTHER DAYS OR DIRECTED BY ANTICOAGULATION CLINIC 75 Tablet 3 3 10/28/19 24 Discontinu ed(Refill) documented as of this encounter (statuses as of 10/28/2023) Active Problems Problem Noted Date Diagnosed Date [...] as of this encounter (statuses as of 10/28/2023) Resolved Problems Problem Noted Date Diagnosed Date [...] as of this encounter (statuses as of 10/28/2023) Immunizations Name Administration Dates Next Due COVID-19, [...] Miscellaneous Notes * Telephone Encounter - Kasandra Jiménez, [facility] - 10/28/2023 12:25 PM EST Signed Prescriptions: Disp Refills Warfarin Sodium 2.5 MG Oral Tablet (Coumad*90 Tab*3 Sig: Take up to one tablet by mouth daily as directed by anticoagulation clinic Authorizing Provider: KHUSHI FLOWER Ordering User: KASANDRA JIMÉNEZ * Telephone Encounter - Ivett Waite, [facility] - 10/28/2023 9:41 AM EST Pending Prescriptions: Disp Refills Warfarin Sodium 2.5 MG Oral Tablet (Coumad*75 Tab*3 Sig: TAKE ONE TABLET BY MOUTH ON TUESDAY AND TUESDAY, AND ONE-HALF TABLET ALL OTHER DAYS OR DIRECTED BY ANTICOAGULATION CLINIC * Telephone Encounter - Ivett aWite [facility] - 10/28/2023 9:40 AM EST Pending Prescriptions: Disp Refills Warfarin Sodium 2.5 MG Oral Tablet (Couma*75 Tab*3 Sig: TAKE ONE TABLET BY MOUTH ON TUESDAY AND TUESDAY, AND ONE-HALF TABLET ALL OTHER DAYS OR DIRECTED BY ANTICOAGULATION CLINIC Last Visit: Visit date not found (in office), Visit date not found (telemedicine) Next Visit: Visit date not found If no future appointments scheduled, and last appointment is greater than a year ago, please schedule patient for a follow-up appointment Last date the medication was ordered: 11/10/22 Is this request for a controlled substance?No Urine Drug Screen:No results found. However, due to the size of the patient record, not all encounters were searched. Please check Results Review for a complete set of results. Patient Phone Numbers Labs: Lab Results Component Value Date/Time CREAT 1.7 (H) 10/28/2023 08:04 AM CREAT 1.03 08/16/2023 12:00 AM CREAT 1.4 (H) 10/03/2020 07:44 AM POTASSIUM 4.7 10/28/2023 08:04 AM POTASSIUM 4.3 08/16/2023 12:00 AM POTASSIUM 3.9 10/03/2020 07:44 AM TSH 2.22 07/25/2023 09:43 AM TSH 1.93 07/04/2020 07:47 AM LDLCALC 22 01/31/2023 08:42 AM LDLCALC 149 (H) 12/11/2019 09:47 AM LDLDIRECT 33 07/06/2023 08:48 AM LDLDIRECT 99 07/04/2020 07:47 AM ALT 8 (L) 10/28/2023 08:04 AM ALT 32 10/03/2020 07:44 AM HGBA1C 9.3 (H) 07/06/2023 08:53 AM HGBA1C 7.8 (H) 07/04/2020 07:47 AM documented in this encounter Plan of Treatment Upcoming Encounters Date Type Department Care Team (Latest Contact Info) Description 10/28/2023 5:30 PM EST Anticoagulation Pharmacy, [address] [place] [address] [place] [address] PAF (paroxysmal atrial fibrillation) (HCC)* 11/10/2023 9:00 AM EST Office [facility] [address] [facility] [place] [address] Rosalio Amaral MD [address] [facility] [place] [address] 11/14/2023 7:20 AM EST Laboratory Laboratory [address] [place] Renae [address] [place] [phone] [place] [facility] [address] [place] [address] 11/14/2023 8:30 AM EST Hem/Onc Treatment Hematology/Oncology Treatment, [place] [address] [place], [place] [address] [place], Chair 4 Hem Onc Scenery [address] [place] [address] 11/16/2023 8:30 AM EST Anticoagulation Pharmacy, [address] [place] [address] [place] [address] 11/18/2023 2:30 PM EST [facility] [address] [place] [address] Sulma Seth RN [address] [place] [address] 12/09/2023 3:30 PM EDT Office Visit [facility] [address] [facility] [place] [address] Rosalio Amaral MD [address] [facility] [place] [address] 12/15/2023 8:30 AM EDT Office Visit Cardiology, [facility] [address] [place] [address] Beth Gibbs CRNP [address] [place] [address] 12/29/2023 9:00 AM EDT Office Visit Otolaryngology [facility] [address] [place] [address] Haley Aguero PA-C [address] [place] [address] 03/08/2024 9:00 AM EDT Office Visit Cardiology [address] [place] [address] Tim Ruiz PA-C [address] [place] [address] 10/30/2024 1:45 PM EST Office Visit Urology, [facility] [address] [place] [address] Devyn Paniagua MD [address] [place] [address] [place] [address] Health Maintenance Due Date Last Done Comments [...] Additional history exists CKD HGB USE SMARTSET 32114 10/28/202410/28, 10/28/2023, 09/08/2023, Additional history exists CKD PHOS USE SMARTSET 69855 10/28/202410/13, 08/16/2023, 07/25/2023, Additional history exists DTaP,Tdap,and [...] this encounter Medical Devices Implanted Type Area Medical Technologist Device Identifier Shelf Expiration Date Model / Serial / Lot Port Power Mri W/8fr Cath - [id number] Implanted:Qty: 1 on 09/26/2020 by Simone Michelle MD at OR [facility] Right: Chest CR BARD : PERIPHERAL VASCULAR 10/12/2021 [id number] / / [id number] Description:right IJ Lens Intraoc 19.0 - [id number] - [id number] Implanted:Qty: 1 on 02/03/2021 by Chris Sexton MD at OR [facility] Right: Eye [employer] 09/11/2025 [id number] / [id number] / Lens Intraoc 19.0 - [id number] - [id number] Implanted:Qty: 1 on 02/24/2021 by Chris Sexton MD at OR [facility] Left: Eye [employer]USCH [employer] LOMB 10/12/2025 [id number] / [id number] / [id number] System Urolift - [id number] Implanted:Qty: 2 on 03/17/2023 by Devyn aPniagua MD at OR [facility] N/A: Urethra [employer] 11/18/2023 [id number] / / [id number] System Urolift - [id number] Implanted:Qty: 3 on 03/17/2023 by Devyn Paniagua MD at OR [facility] N/A: Urethra [employer] 11/03/2023 [id number] / / [id number] documented as of this encounter Visit Diagnoses Diagnosis PAF (paroxysmal atrial fibrillation) (HCC)- Primary Atrial fibrillation Atrial fibrillation, unspecified type (HCC) Anticoagulation management encounter Encounter for therapeutic drug monitoring [facility]DC current use of anticoagulant therapy Paroxysmal atrial fibrillation (HCC) Atrial fibrillation documented in this encounter Additional [...] and were consensually agreed upon. Care Teams Motorboat Mechanic Inboard Relationship Specialty Start Date End Date Jaime Garcia MD [address] [place] [address] [place] [address] PCP - General Family Medicine 10/15/20 documented as of this encounter
--- OUTSIDE RECORDS SUMMARY | 2023-12-07 07:52 | External Medical Summary | Summary of Care ---
Author Name Unknown Organization [facility] Address [address] [place] [address] Phone [phone] Care Team Providers Care Power Plant Assistant Name Role Phone Jaime Garcia MD Primary Care Provide r Reason for Visit * Reason Comments Medication Refill Encounter Details Date Type Department Care Team (Late st Contact Info) Description 10/28/2023 Refill [facility] Tyree UGARTE [address] [facility] [place] [address] Ana Amaya MD [address] [facility] [place] [address] Multiple myeloma in relapse (HCC) Allergies Active [...] A1c goal of less than 7.0% ([facility]) Use as directed daily. Test once daily DxE11.9 100 Strip 5 1 Active LancetsIndications: Type 2 diabetes mellitus with hemoglobin A1c goal of less than 7.0% ([facility]) Test once daily DxE11.9. 100 Each 5 1 Active Albuterol Sulfate HFA 108 (90 Base) MCG/ACT Inhalation Aerosol SolutionIndications :Acute bronchitis, antibiotics not indicated Inhale 2 Puffs by mouth every 6 hours as needed for Cough or Shortness of Breath. 54 g 1 1 Active Acyclovir 400 MG Oral Tablet (Zovirax)Indication s:Lambda light chain myeloma ([facility]) Take one tablet once daily 180 Tablet [...] ns:Multiple myeloma not having achieved remission ([facility]) 5 tabs 2 times monthly 10 Tablet [...] Information Patient taking differently: 50 mcg Oral [id number], Reported on 04/14/2023 Finasteride 5 MG Oral [...] A1c goal of less than 7.0% ([facility]) Take 2 Tablets by mouth in the morning. 180 Tablet 1 3 Active Pen [place] 32G X 4 MM Use as directed. [...] 0 Active Folic Acid 400 MCG Oral TabletIndications:L [...] without long-term current use of insulin ([facility]) Use as directed to check blood sugars [...] Information Patient not taking.Reported on 10/04/2023 Nystatin [id number] UNIT/ML Mouth/Throat SuspensionIndicatio ns:Multiple myeloma in relapse ([facility]) Swish and swallow 5 mL in the [...] the morning. 30 Tablet 4 4 Active Dapsone 25 MG Oral TabletIndications:M ultiple myeloma in relapse (HCC) TAKE ONE TABLET BY MOUTH EVERY DAY 90 Tablet 1 4 10/27/19 25 Active Dapsone 25 MG Oral TabletIndications:M ultiple myeloma in relapse (HCC) TAKE ONE TABLET BY MOUTH EVERY DAY 90 Tablet 1 3 10/28/19 24 Discontinu ed(Refill) documented as [...] Telephone Encounter - Ana Amaya MD - 10/28/2023 5:55 PM ESTSigned Prescriptions: Disp Refills Dapsone 25 MG Oral Tablet 90 Tab*1 Sig: TAKE ONE TABLET BY MOUTHEVERY DAYAuthorizing Provider: ANA AMAYA documented in this encounter Plan of Treatment Upcoming Encounters Date Type Department Care Team (Late st Contact Info) Description 11/10/2023 9:00 AM EST Telemedicine [facility] Tyree UGARTE [address] [place] [address] Ana Amaya MD [address] [place] [address] 11/14/2023 7:20 AM EST Laboratory Laboratory [address]ery [place] [address] [place] [address] [place], Lab Scenery [address] [facility] [place] [address] 11/14/2023 8:30 AM EST Hem/Onc Treatment Hematology/Oncology Treatment, [place] [address] [place] [address] [place], Chair 4 Hem Onc Scenery [address] [place] [address] 11/16/2023 8:30 AM EST [facility], [address] [place] [address] [place] [address] 11/18/2023 2:30 PM EST [facility] [address] [facility] [place] [address] Sulma Seth RN [address] [facility] [place] [address] 12/09/2023 3:30 PM EDT Office Visit [facility] Tyree UGARTE [address] [facility] [place] [address] Ana Amaya MD [address] [facility] [place] [address] 12/15/2023 8:30 AM EDT Office Visit [facility], [facility] [place] [address] Beth Gibbs CRNP [address] [facility] [place] [address] 12/29/2023 9:00 AM EDT Office Visit Otolaryngology [facility] [address] [place] [address] Haley Aguero PA-C [address] [place] [address] 03/08/2024 9:00 AM EDT Office Visit Cardiology [address] [place] [address] Tim Ruiz PA-C [address] [place] [address] 10/30/2024 1:45 PM EST Office Visit Urology, [facility] [address] [place] [address] Devyn Paniagua MD [address] [place] [address] [place] [address] Health Maintenance Due Date Last Done Comments [...] Additional history exists CKD HGB USE SMARTSET 98491 10/28/202410/28, 10/28/2023, 09/08/2023, Additional history exists CKD PHOS USE SMARTSET 15029 10/28/202410/13, 08/16/2023, 07/25/2023, Additional history exists DTaP,Tdap,and [...] this encounter Medical Devices Implanted Type Area Service Order Dispatcher Device Identifier Shelf Expiration Date Model / Serial / Lot Port Power Mri W/8fr Cath - [id number] Implanted:Qty: 1 on 09/26/2020 by Simone Michelle MD at OR [facility] Right: Chest CR BARD : PERIPHERAL VASCULAR 10/12/2021 [id number] / / [id number] Description:right IJ Lens Intraoc 19.0 - [id number] - [id number] Implanted:Qty: 1 on 02/03/2021 by Chris Sexton MD at OR [facility] Right: Eye [employer]CH [employer]OM[employer] 09/11/2025 [id number] / [id number] / Lens Intraoc 19.0 - [id number] - [id number] Implanted:Qty: 1 on 02/24/2021 by Chris Sexton MD at OR [facility] Left: Eye BAUSCH [employer]OM[employer] 10/12/2025 [id number] / [id number] / [id number] System Urolift - [id number] Implanted:Qty: 2 on 03/17/2023 by Devyn Paniagua MD at OR [facility] N/A: Urethra [employer] 11/18/2023 [id number] / / [id number] System Urolift - [id number] Implanted:Qty: 3 on 03/17/2023 by Devyn Paniagua MD at OR [facility] N/A: Urethra [employer] 11/03/2023 [id number] / / [id number] documented as of this encounter Visit Diagnoses [...] and were consensually agreed upon. Care Teams Power Plant Assistant Relationship Specialty Start Date End Date Jaime Garcia MD [address] [place] [address] [place] [address] PCP - General Family Medicine 10/15/20 documented as of this encounter
--- OUTSIDE RECORDS SUMMARY | 2023-12-07 07:52 | External Medical Summary | Summary of Care ---
Author Name Unknown Organization [facility] Address [address] [place] [address] Phone [phone] Care Team Providers Care Exhibit Preparator Name Role Phone Jaime Garcia MD Primary Care Provide r Reason for Visit * Reason Comments Chemotherapy DarzalexFaspro/Cytox an * Episode Based Medications (Routine) - Authorized Specialty Diagnoses / Procedures Referred By Contbianca t Referred To Contact Diagnoses Lambda light chain myeloma (HCC) AL amyloidosis (HCC) Procedures DE DARATUMUMAB, HYALURONIDASE DE CYCLOPHOSPHAMIDE 100 MG INJ Rosalio Amaral MD [facility] [place] [address] Anc Hem/Onc Scenesukhdeep Renae DEPT CLOSED - 07/26/23 [address] [place] [address] Referral ID Status Reason Start Date Expiration Date V isits Requested Visits Authorized [id number] Authorized 10/21/2023 10/21/2024 999 [id number] Encounter Details Date Type Department Care Team (Latest Contact Info) Description 10/28/2023 9:00 AM EST Hem/Onc Treatment Hematology/Oncolog y Treatment, [place] [address] [place] [address] [place], Chair 4 Hem Onc Scenery [address] [place] [address] Lambda light chain myeloma (HCC)*; AL amyloidosis (HCC); Multiple myeloma in relapse (HCC); Multiple myeloma without remission (HCC); Encounter for antineoplastic chemotherapy Allergies Active Allergy Reactions Criticality Noted Date Comments Atorvastatin Muscle pain High 03/30/2019 Ezetimibe Muscle pain High 01/25/2020 documented as of this encounter (statuses as of 11/01/2023) Medications Medication Sig Dispensed Refills Start Date [...] Information Patient taking differently: 50 mcg Oral [id number], Reported on 04/14/2023 Finasteride 5 MG Oral [...] morning. 180 Tablet 1 3 Active Pen [place] 32G X 4 MM Use as directed. 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,Paroxysmal atrial fibrillation (HCC) TAKE ONE TABLET BY MOUTH ON TUESDAY AND TUESDAY, AND ONE-HALF TABLET ALL OTHER DAYS OR DIRECTED BY ANTICOAGULATION CLINIC 75 Tablet 3 3 10/28/19 24 Discontinu ed(Refill) Dapsone 25 MG Oral TabletIndications: Multiple myeloma in relapse (HCC) TAKE ONE TABLET BY MOUTH EVERY DAY 90 Tablet 1 3 10/28/19 24 Discontinu ed(Refill) documented as of this encounter (statuses as of 11/01/2023) Active Problems Problem Noted Date Diagnosed Date [...] without remission 06/14/2014 Overview: Dr Rodriges/ [facility] DIRECTIVE INFORMATION 10/13/2006 Overview: No, Advance Directive brochure offered , patient declined. Degeneration of lumbosacral intervertebral disc 02/19/2005 documented as of this encounter (statuses as of 11/01/2023) Resolved Problems Problem Noted Date Diagnosed Date [...] as of this encounter (statuses as of 11/01/2023) Immunizations Name Administration Dates Next Due COVID-19, [...] [facility] Tyree UGARTE [address] [facility] [place] [address] Rosalio Amaral MD [address] [facility] [place] [address] 11/14/2023 7:20 AM EST Laboratory [facility] Sc[facility]ery [place] [address] [place] [phone] Park, Lab Scenery [address] [place] [address] 11/14/2023 8:30 AM EST Hem/Onc Treatment Hematology/Oncology Treatment, [place] [address] [place] [phone] [place], Chair 4 Hem Onc Scenery [address] [place] [address] 11/16/2023 8:30 AM EST Anticoagulation Pharmacy, [address] [place] [address] [place] [address] 11/18/2023 2:30 PM EST Home Visit [place] [facility] [place], [facility] [address] [place] [address] Sulma Seth, RN [address] [place] [address] 11/21/2023 2:40 PM EDT Office Visit Nephrology, Carla Renae [address] [place] [address] Armando Cook MD [address] [place] [address] 12/09/2023 3:30 PM EDT Office Visit [facility] Tyree UGARTE [address] [facility] [place] [address] Rosalio Amaral MD [address] [facility] [place] [address] 12/15/2023 8:30 AM EDT Office Visit Cardiology, [facility] [address] [place] [address] Beth Gibbs CRNP [address] [place] [address] 12/29/2023 9:00 AM EDT Office Visit Otolaryngology [facility] [address] [place] [address] Haley Aguero PA-C [address] [place] [address] 03/08/2024 9:00 AM EDT Office Visit Cardiology [address] [place] [address] Tim Ruiz PAPageC [address] [place] [address] 10/30/2024 1:45 PM EST Office Visit Urology, [facility] [address] [place] [address] Devyn Paniagua MD [address] [facility] [address] [place] [phone] Scheduled Orders Name Type Priority Associated Diagnoses Orde r Schedule PHOSPHORUS Lab Routine Lambda light chain myeloma (HCC) Multiple myeloma without remission (HCC) Expected: 10/28/2023 (Approximate), Expires: 04/25/2024 Health Maintenance Due Date Last Done Comments [...] Additional history exists CKD HGB USE SMARTSET 62471 10/28/202410/28, 10/28/2023, 09/08/2023, Additional history exists CKD PHOS USE SMARTSET 90031 10/28/202410/13, 08/16/2023, 07/25/2023, Additional history exists DTaP,Tdap,and [...] this encounter Medical Devices Implanted Type Area Neuro Urologist Device Identifier Shelf Expiration Date Model / Serial / Lot Port Power Mri W/8fr Cath - [id number] Implanted:Qty: 1 on 09/26/2020 by Simone Michelle MD at OR [facility] Right: Chest CR BARD : PERIPHERAL VASCULAR 10/12/2021 [id number] / / [id number] Description:right IJ Lens Intraoc 19.0 - [id number] - [id number] Implanted:Qty: 1 on 02/03/2021 by Chris Sexton MD at OR [facility] Right: Eye BAUSCH & LOMB 09/11/2025 [id number] / [id number] / Lens Intraoc 19.0 - [id number] - [id number] Implanted:Qty: 1 on 02/24/2021 by Chris Sexton MD at OR [facility] Left: Eye BAUSCH & LOMB 10/12/2025 [id number] / [id number] / [id number] System Urolift - [id number] Implanted:Qty: 2 on 03/17/2023 by Devyn Paniagua MD at OR [facility] N/A: Urethra [employer] 11/18/2023 [id number] / / [id number] System Urolift - [id number] Implanted:Qty: 3 on 03/17/2023 by Devyn Paniagua MD at OR [facility] N/A: Urethra [employer] 11/03/2023 [id number] / / [id number] documented as of this encounter Procedures Procedure Name Priority Date/Time Associated Diagnosis Comments PHOSPHORUS STAT 10/28/2023 8:04 AM EST Multiple myeloma in relapse (HCC) documented in this encounter Results * PHOSPHORUS (10/28/2023 8:04 AM EST) Phosphorus 3.1 2.5 - 4.8 mg/dL 10/28/2023 10:09 AM EST [facility] 56-02 Blood Venous blood specimen / Unknown Venipuncture / Unknown 10/28/2023 8:04 AM EST 10/28/2023 9:56 AM EST Rosalio Amaral MD LAB BLOOD ORDERABLES [facility] 56-[address] [place] [address] documented in this encounter Visit Diagnoses Diagnosis [...] AM EST 500 mg 500 mL/hr Daratumumab-hyaluronida se-fihj (Darzalex Faspro) 1800 mg-86909 units/ 15 ml subcut inj 15 mL, [...] MAR barcode scanning., ONCE, 1 dose, On 2/16/24 at 1215 Start Infusion 10/28/2023 10:50 AM [...] and were consensually agreed upon. Care Teams Exhibit Preparator Relationship Specialty Start Date End Date Jaime Garcia MD [address] [place] [address] [place] [phone] PCP - General Family Medicine 10/15/20 documented as of this encounter
--- OUTSIDE RECORDS SUMMARY | 2023-12-07 07:52 | External Medical Summary | Summary of Care ---
Author Name Unknown Organization [facility] Address [address] [place] [address] Phone [phone] Care Team Providers Care Water Safety Instructor Name Role Phone Jaime Garcia MD Primary Care Provide r Reason for Visit * Reason Comments Dosage Adjustment Via Phone (anticoag Cl inic) Encounter Details Date Type Department Care Team (Latest Contact Info) Description 10/28/2023 5:30 PM EST Anticoagulation Pharmacy, [address] [place] [address] [place] [address] PAF (paroxysmal atrial fibrillation) ([facility])* Allergies Active Allergy Reactions Criticality Noted Date [...] less than 7.0% ([facility]) Test once daily DxE11.9. 100 Each 5 1 Active Albuterol Sulfate HFA 108 (90 Base) MCG/ACT Inhalation Aerosol SolutionIndications :Acute bronchitis, antibiotics not indicated Inhale 2 Puffs by mouth every 6 hours as needed for Cough or Shortness of Breath. 54 g 1 1 Active Acyclovir 400 MG Oral Tablet (Zovirax)Indication s:Lambda light chain myeloma ([facility]) Take one tablet once daily 180 Tablet [...] (Decadron)Indicatio ns:Multiple myeloma not having achieved remission ([facility]) 5 tabs 2 times monthly 10 Tablet [...] Information Patient taking differently: 50 mcg Oral [id number], Reported on 04/14/2023 Warfarin Sodium 2.5 MG Oral Tablet (Coumadin)Indicatio ns:Atrial fibrillation, unspecified type (HCC),Anticoagulati on management encounter,correction current use of anticoagulant therapy,Paroxysmal atrial fibrillation (HCC) TAKE ONE TABLET BY MOUTH ON TUESDAY AND TUESDAY, AND ONE-HALF TABLET ALL OTHER DAYS OR DIRECTED BY ANTICOAGULATION CLINIC 75 Tablet 3 3 11/10/19 24 Active Additional Information Patient taking differently: 0.5 Tablet Oral Daily(AM), Reported on 08/20/2023 Finasteride 5 MG Oral Tablet (Proscar) TAKE 1 TABLET BY MOUTH IN THE MORNING 90 Tablet 3 3 04/11/20 24 Active Dapsone 25 MG Oral TabletIndications:M ultiple [...] morning. 180 Tablet 1 3 Active Pen [place] 32G X 4 MM Use as directed. [...] Information Patient not taking.Reported on 10/04/2023 Nystatin [id number] UNIT/ML Mouth/Throat SuspensionIndicatio ns:Multiple myeloma in relapse [...] the morning. 30 Tablet 4 4 Active documented as of this encounter [...] as of this encounter Progress Notes * Nik Menendez [facility] - 10/28/2023 10:28 AM EST Images from the original note were not included. Medication Therapy Disease Management - Anticoagulation Jerardo Ochoa Jr. 1970 Description AMIO start 10/29/22 - 11/22/22 BID then QD after AMIO STOPPED 05/31 Patient Findings Positives: Missed doses (He missed his dose Tuesday.) Negatives: Signs/symptoms of thrombosis, Signs/symptoms of bleeding, Change in health, Change in alcohol use, Change in activity, Upcoming invasive procedure, Extra doses, Change in medications, Change in diet/appetite, Bruising INR Result As of 10/28/2023 INR goal: 2.0-3.0 INR used for dosin.6 (10/28/2023) Warfarin Plan As of 10/28/2023 Full warfarin instructions: 10/28: 2.5 mg; Otherwise 1.25 mg every day Next INR check: 11/16/2023 Repeat PT/INR in 2.5 week(s) Weekly dose: not changed Nik Bryant RPh, CACP, CDE Clinical Pharmacist Medication Therapy Management [facility] 10/28/2023 10:32 AM documented in this encounter Plan of Treatment Upcoming Encounters Date Type Department Care Team (Late st Contact Info) Description 11/10/2023 9:00 AM EST Office Visit [facility]ology [facility] Tyree UGARTE [address] [place] [address] Rosalio [facility]al MD [address] [facility] [address] 11/16/2023 8:30 AM EST Anticoagulation Pharmacy, [address] [place] [address] [place] [address] 11/18/2023 2:30 PM EST Home Visit [facility] [address] [facility] [place] [address] Sulma Seth, BOBBY [address] [facility] [place] [address] 12/09/2023 3:30 PM EDT Office Visit H[facility]ology [facility] Tyree UGARTE [address] [place] [address] Rosalio Amaral MD [address] [facility] [address] 12/15/2023 8:30 AM EDT Office Visit Cardiology, [facility] [place] [address] Beth Gibbs CRNP [address] [place] [address] 12/29/2023 9:00 AM EDT Office Visit Otolaryngology [facility] [address] [place] [address] Haley Aguero PA-C [address] [place] [address] 03/08/2024 9:00 AM EDT Office Visit Cardiology [address] [place] [address] Tim Ruiz PA-C [address] [place] [address] 10/30/2024 1:45 PM EST Office Visit Urology, [facility] [address] [place] [address] Devyn Paniagua MD [address] [address] [place] [address] Health Maintenance Due Date Last Done Comments [...] Additional history exists CKD HGB USE SMARTSET 19922 10/28/202410/28, 10/28/2023, 09/08/2023, Additional history exists CKD PHOS USE SMARTSET 98061 10/28/202410/13, 08/16/2023, 07/25/2023, Additional history exists DTaP,Tdap,and [...] this encounter Medical Devices Implanted Type Area Hardware Technician Device Identifier Shelf Expiration Date Model / Serial / Lot Port Power Mri W/8fr Cath - [id number] Implanted:Qty: 1 on 09/26/2020 by Simone Michelle MD at OR [facility] Right: Chest CR BARD : PERIPHERAL VASCULAR 10/12/2021 [id number] / / [id number] Description:right IJ Lens Intraoc 19.0 - [id number] - [id number] Implanted:Qty: 1 on 02/03/2021 by Chris Sexton MD at OR [facility] Right: Eye [employer]USCH [employer] LOMB 09/11/2025 [id number] / [id number] / Lens Intraoc 19.0 - [id number] - [id number] Implanted:Qty: 1 on 02/24/2021 by Chris Sexton MD at OR [facility] Left: Eye BAUSCH & LOMB 10/12/2025 [id number] / [id number] / [id number] System Urolift - [id number] Implanted:Qty: 2 on 03/17/2023 by Devyn Paniagua MD at OR [facility] N/A: Urethra [employer] 11/18/2023 OK128-6 / / [id number] System Urolift - [id number] Implanted:Qty: 3 on 03/17/2023 by Devyn Paniagua MD at OR [facility] N/A: Urethra [employer] 11/03/2023 [id number] / / [id number] documented as of this encounter Visit Diagnoses [...] and were consensually agreed upon. Care Teams Water Safety Instructor Relationship Specialty Start Date End Date Jaime Garcia MD [address] [place] [address] [place] [address] PCP - General Family Medicine 10/15/20 documented as of this encounter
--- OUTSIDE RECORDS SUMMARY | 2023-12-07 07:52 | External Medical Summary | Summary of Care ---
Author Name Unknown Organization [facility] Address [address] [place] [address] Phone [phone] Care Team Providers Care Content Strategy Lead Name Role Phone Jaime Garcia MD Primary Care Provide r Reason for Visit * Reason Comments Chemotherapy DarzalexFaspro/Cytox an * Episode Based Medications (Routine) - Authorized Specialty Diagnoses / Procedures Referred By Contbianca t Referred To Contact Diagnoses Lambda light chain myeloma (HCC) AL amyloidosis (HCC) Procedures [place] DARATUMUMAB, HYALURONIDASE [place] CYCLOPHOSPHAMIDE 100 MG INJ Rosalio Amaral MD [facility] [place] [address] Anc Hem/Onc Scenesukhdeep Renae DEPT CLOSED - 07/26/23 [address] [place] [phone] Referral ID Status Reason Start Date Expiration Date V isits Requested Visits Authorized [id number] Authorized 10/21/2023 10/21/2024 999 999 Encounter Details Date Type Department Care Team (Latest Contact Info) Description 10/28/2023 9:00 AM EST Hem/Onc Treatment Hematology/Oncolog y Treatment, [place] [address] [place] [address] [place], Chair 4 Hem Onc Scenery [address] [place] [address] Lambda light chain myeloma (HCC)*; AL amyloidosis [...] hemoglobin A1c goal of less than 7.0% ([facility]) Use as directed daily. Test once daily DxE11.9 100 Strip 5 1 Active LancetsIndications :Type 2 diabetes mellitus with hemoglobin A1c goal of less than 7.0% ([facility]) Test once daily DxE11.9. 100 [...] Information Patient taking differently: 50 mcg Oral [id number], Reported on 04/14/2023 Finasteride 5 MG Oral [...] hemoglobin A1c goal of less than 7.0% ([facility]) Take 2 Tablets by mouth in the morning. 180 Tablet 1 3 Active Pen [place] 32G X 4 MM Use as directed. [...] disease, without long-term current use of insulin ([facility]) Use as directed to check [...] Information Patient not taking.Reported on 10/04/2023 Nystatin 396188 UNIT/ML Mouth/Throat SuspensionIndicati ons:Multiple myeloma in relapse ([facility]) Swish and swallow 5 mL [...] myeloma without remission 06/14/2014 Overview: Dr Rodriges/ [facility] DIRECTIVE INFORMATION 10/13/2006 Overview: No, [...] Description 10/28/2023 5:30 PM EST Anticoagulation Pharmacy, [address] [place] [address] [place] [address] PAF (paroxysmal atrial fibrillation) (HCC)* 11/10/2023 9:00 AM EST Office Visit H[facility]ology [facility] Tyree UGARTE [address] [facility] [place] [address] Rosalio Amaral MD [address] [facility] [place] [address] 11/14/2023 7:20 AM EST Laboratory Laboratory Scenery [place] [address] [place] [phone] [place], Lab Scenery [address] [place] [address] 11/14/2023 8:30 AM EST Hem/Onc Treatment Hematology/Oncology Treatment, [place] [address] [place] [address] [place], Chair 4 Hem Onc Scenery [address] [place] [address] 11/16/2023 8:30 AM EST Anticoagulation Pharmacy, [address] [place] [address] [place] [address] 11/18/2023 2:30 PM EST [facility], [facility] [address] [place] [address] Sulma Seth RN [address] [place] [address] 12/09/2023 3:30 PM EDT Office Visit [facility]ology [facility] Tyree UGARTE [address] [facility] [place] [address] Rosalio Amaral MD [address] [facility] [place] [address] 12/15/2023 8:30 AM EDT Office Visit Cardiology, [facility] [address] [place] [address] Beth Gibbs CRNP [address] [place] [address] 12/29/2023 9:00 AM EDT Office Visit Otolaryngology [facility] [address] [place] [address] Haley Aguero PA-C [address] [place] [address] 03/08/2024 9:00 AM EDT Office Visit Cardiology [address] [place] [address] Tim Ruiz PA-C [address] [place] [address] 10/30/2024 1:45 PM EST Office Visit Urology, [facility] [address] [place] [address] Devyn Paniagua MD [address] [facility] [place] [address] [place] [address] Scheduled Orders Name Type Priority Associated Diagnoses [...] Additional history exists CKD HGB USE SMARTSET 11680 10/28/202410/28, 10/28/2023, 09/08/2023, Additional history exists CKD PHOS USE SMARTSET 82559 10/28/202410/13, 08/16/2023, 07/25/2023, Additional history exists DTaP,Tdap,and [...] this encounter Medical Devices Implanted Type Area Full Fashioned Garment Knitter Device Identifier Shelf Expiration Date Model / Serial / Lot Port Power Mri W/8fr Cath - [id number] Implanted:Qty: 1 on 09/26/2020 by Simnoe Michelle MD at OR [facility] Right: Chest CR BARD : PERIPHERAL VASCULAR 10/12/2021 [id number] / / [id number] Description:right IJ Lens Intraoc 19.0 - [id number] - [id number] Implanted:Qty: 1 on 02/03/2021 by Chris Sexton MD at OR [facility] Right: Eye BAUSCH & LOMB 09/11/2025 [id number] / [id number] / Lens Intraoc 19.0 - [id number] - [id number] Implanted:Qty: 1 on 02/24/2021 by Chris Sexton MD at OR [facility] Left: Eye BAUSCH & LOMB 10/12/2025 [id number] / [id number] System Urolift - [id number] Implanted:Qty: 2 on 03/17/2023 by Devyn Paniagua MD at OR [facility] N/A: Urethra [employer] 11/18/2023 [id number] / / [id number] System Urolift - [id number] Implanted:Qty: 3 on 03/17/2023 by Devyn Paniagua MD at OR [facility] N/A: Urethra [employer] 11/03/2023 AJ466-5 / / [id number] documented as of this encounter Procedures Procedure Name Priority Date/Time Associated Diagnosis Comments PHOSPHORUS STAT 10/28/2023 8:04 AM EST Multiple myeloma in relapse (HCC) documented in this encounter Results * PHOSPHORUS (10/28/2023 8:04 AM EST) Phosphorus 3.1 2.5 - 4.8 mg/dL 10/28/2023 10:09 AM EST [facility] 56-02 Blood Venous blood specimen / Unknown Venipuncture / Unknown 10/28/2023 8:04 AM EST 10/28/2023 9:56 AM EST Rosalio Amaral MD LAB BLOOD ORDERABLES [facility] 56-02 [address] [place] [address] documented in this encounter Visit Diagnoses Diagnosis Lambda light chain myeloma (HCC)- Primary Multiple myeloma, without mention of having achieved remission AL amyloidosis (HCC) Other amyloidosis Multiple myeloma in relapse (HCC) Multiple myeloma, in relapse Multiple myeloma without remission (HCC) Multiple myeloma, without mention of having achieved remission Encounter for antineoplastic chemotherapy PAF (paroxysmal atrial fibrillation) (HCC)- Primary Atrial fibrillation documented in this encounter Administered Medications Active Administered Medications - up to 3 most recent administrations Medication Order MAR Action Action Date Dose Rate Site diphenhydrAMINE (Benadryl) inj 50 mg 50 mg, IV Push, ONCE PRN Other, Hypersensitivity Reaction, Starting on 10/28/23 at 0919, Until 10/29/23 at 0918, For 24 hours EPINEPHrine 1 MG/ML inj 0.3 mg 0.3 mg, Intramuscular, ONCE PRN Other, Hypersensitivity Reaction or Anaphylaxis, Starting on Tue10/28/23 at 0919, Until 10/29/23 at 0918, For 24 hours hEParin 100 UNIT/ML Lock Flush inj 500 Units 500 Units (5 mL), IV Lock, PRN Other, IV Flush, Starting on Tue10/28/23 at 0919, Until 10/29/23 at 0918, For 24 hours, Do not flush if lock, PICC, or central line not in place; IV infusing or unable to flush. Given 10/28/2023 11:41 AM EST 500 Units Hydrocortisone Sod Suc (PF) (Solu-Cortef) inj 100 mg 100 mg, IV Push, ONCE PRN Other, Hypersensitivity Reaction, Starting on Tue10/28/23 at 0919, Until 10/29/23 at 0918, For 24 hours meperidine (Demerol) 25 MG/ML inj 25 mg 25 mg, IV Push, ONCE PRN Shivering, Starting on Tue10/28/23 at 0919, Until 10/29/23 at 0918, For 24 hours NSS infusion 500 mL, Intravenous, at 50 mL/hr, CONTINUOUS, Starting on Tue10/28/23 at 1030, Until Tue10/28/23 at 2028 Start Infusion 10/28/2023 9:25 AM EST 500 mL 50 mL/hr sodium chloride 0.9 % flush central line 10 mL 10 mL, IV Push, PRN Other, IV Flush, Starting on Tue10/28/23 at 0919, Until 10/29/23 at 0918, For 24 hours, Do not flush if lock, PICC, or central line not in place; IV infusing or unable to flush. Given 10/28/2023 11:41 AM EST 10 mL Inactive Administered Medications [...] 10:20 AM EST 500 mg 500 mL/hr Daratumumab-hyaluronidas e-fihj (Darzalex Faspro) 1800 mg-68905 units/ 15 ml subcut inj 15 mL, [...] Given 10/28/2023 9:38 AM EST 10 mg isolyte 500 mL bolus infusion Intravenous, at 500 mL/hr Administer over 1 Hours, Administer entire volume within 60 minutes or less. Plasma-LYTE 148, isolyte-S, and isolyte-S pH 7.4 are considered equivalent - including for MAR barcode scanning., ONCE, 1 dose, On Tue10/28/23 at 1215 Start Infusion 10/28/2023 10:50 AM EST 500 mL 500 mL/hr documented in this encounter Additional Health Concerns [...] and were consensually agreed upon. Care Teams Content Strategy Lead Relationship Specialty Start Date End Date Jaime Garcia MD [address] [place] [address] [place] [address] PCP - General Family Medicine 10/15/20 documented as of this encounter
--- OUTSIDE RECORDS SUMMARY | 2023-12-07 07:53 | External Medical Summary | Summary of Care ---
Author Name Unknown Organization [facility] Address [address] [place] [address] Phone [phone] Care Team Providers Care Tire Rebuilder Name Role Phone Jaime Garcia MD Primary Care Provide r Reason for Visit * Reason Comments Outpatient Testing Encounter Details Date Type Department Care Team (Late st Contact Info) Description 10/28/2023 7:50 AM EST Laboratory Laboratory Scenery [facility] [address] [place] [phone] [place], Lab Scenery [address] [place] [address] PAF (paroxysmal atrial fibrillation) ([facility]); Anticoagulation management encounter; supervisor intermediates current use of anticoagulant therapy; Multiple myeloma without remission ([facility]); Multiple myeloma in relapse ([facility]); Lambda light chain myeloma ([facility]) Allergies Active Allergy Reactions Criticality Noted Date [...] at bedtime. 1 Each 0 1 Active weipassuch Ultra Blue In Vitro Strip (Glucose Blood)Indications:T ype 2 diabetes mellitus with hemoglobin A1c goal of less than 7.0% ([facility]) Use as directed daily. Test once daily DxE11.9 100 Strip 5 1 Active LancetsIndications: Type 2 diabetes mellitus with hemoglobin A1c goal of less than 7.0% ([facility]) Test once daily DxE11.9. 100 Each 5 1 Active Albuterol Sulfate HFA 108 (90 Base) MCG/ACT Inhalation Aerosol SolutionIndications :Acute bronchitis, antibiotics not indicated Inhale 2 Puffs by mouth every 6 hours as needed for Cough or Shortness of Breath. 54 g 1 1 Active Acyclovir 400 MG Oral Tablet (Zovirax)Indication s:Lambda light chain myeloma ([facility]) Take one tablet once [...] (Decadron)Indicatio ns:Multiple myeloma not having achieved remission ([facility]) 5 tabs 2 times monthly [...] Information Patient taking differently: 50 mcg Oral [id number], Reported on 04/14/2023 Warfarin Sodium 2.5 MG Oral Tablet (Coumadin)Indicatio ns:Atrial fibrillation, unspecified type (HCC),Anticoagulati on management encounter,supervisor intermediates current use of anticoagulant therapy,Paroxysmal atrial fibrillation [...] hemoglobin A1c goal of less than 7.0% ([facility]) Take 2 Tablets by mouth in the morning. 180 Tablet 1 3 Active Pen Sanderson 32G X 4 MM Use as directed. [...] disease, without long-term current use of insulin ([facility]) Use as directed to [...] Information Patient not taking.Reported on 10/04/2023 Nystatin 015609 UNIT/ML Mouth/Throat SuspensionIndicatio ns:Multiple myeloma in relapse ([facility]) Swish and swallow 5 [...] myeloma without remission 06/14/2014 Overview: Dr Rodriges/ [facility] ADVANCE DIRECTIVE INFORMATION 10/13/2006 Overview: [...] Team (Late st Contact Info) Description 10/28/2023 9:00 AM EST Hem/Onc Treatment Hematology/Oncology Treatment, [place] [address] [place] [address] [place], Chair 4 Hem Onc Scenery [address] [place] [address] 10/28/2023 5:30 PM EST Anticoagulation Pharmacy, [address] [place] [address] [place] [address] 11/10/2023 9:00 AM EST Office [facility] Nikki Chacra [address] [facility] [place] [address] Rosalio Amaral MD [address] [facility] [place] [address] 11/18/2023 2:30 PM EST Home Visit isinger at [facility] [address] [place] [address] Sulma Seth RN [address] [place] [address] 12/09/2023 3:30 PM EDT Office Visit [facility] TORITO Chacra [address] [place] [address] Rosalio Amaral MD [address] [place] [address] 12/15/2023 8:30 AM EDT Office Visit Cardiology, [facility] [address] [place] [address] Beth Gibbs CRNP [address] [place] [address] 12/29/2023 9:00 AM EDT Office Visit Otolaryngology [facility] [address] [place] [address] Haley Aguero PA-C [address] [place] [address] 03/08/2024 9:00 AM EDT Office Visit Cardiology [address] [place] [address] Tim Ruiz PA-C [address] [place] [address] 10/30/2024 1:45 PM EST Office Visit Urology, [facility] [address] [place] [address] Devyn Paniagua MD [address] [place] [address] [place] [phone] Pending Results Name Type Priority Associated Diagnoses Date /Time PT INR Lab Routine PAF (paroxysmal atrial fibrillation) (HCC) Anticoagulation management encounter [facility] current use of anticoagulant therapy 10/28/2023 8:04 AM EST COMPREHENSIVE METABOLIC PANEL Lab STAT Multiple myeloma without remission (HCC) 10/28/2023 8:04 AM EST URIC ACID Lab Routine Multiple myeloma in relapse ([facility]) 10/28/2023 8:04 AM EST SERUM PROTEIN ELECTROPHORESIS REFLEX PROFILE Lab STAT Lambda light chain myeloma ([facility]) 10/28/2023 8:04 AM EST SERUM FREE LIGHT CHAINS Lab STAT Lambda light chain myeloma ([facility]) 10/28/2023 8:04 AM EST Health Maintenance Due Date Last Done Comments HIV Screening 1985 Hepatitis C Screening 01/29/1988 Cologuard 2015 Fecal Occult Blood Test 2015 Sigmoidoscopy 2015 COVID-19 Vaccine (3 - Pfizer risk series) 11/03/2021 10/06/2021, 06/23/2021 Depression Screening 01/05/2022 01/05/2021 Diabetic Foot Exam 12/14/2022 12/14/2021, 0 10/15/2020, 06/25/2019 HbA1c 01/05/2024 07/06/2023, 08/0 11/2022, 03/29/2023, Additional history exists GFR 03/22/2024 09/22/2023, 08/13, 08/22/2023, Additional history exists Pneumococcal Vaccine: Pediatrics (0 to 5 Years) and At-Risk Patients (6 to 64 Years) (3 of 3 - PPSV23 or PCV20) 05/22/2024 05/13/2020, 05/22/2019 Diabetic Eye Exam 07/11/2024 07/11/2023, , 07/05/2022, Additional history exists TSH 07/25/2024 07/25/2023, 03/12, 01/31/2023, Additional history exists CKD PHOS USE SMARTSET 46744 08/16/2024 12/0 01/2023, 07/25/2023, 07/06/2023, Additional history exists Albumin/Creatinine Ratio 09/08/2024 023, 06/22/2023, 05/27/2023, Additional history exists CKD HGB USE SMARTSET 71667 10/28/202410/28, 10/28/2023, 09/08/2023, Additional history exists DTaP,Tdap,and Td Vaccines (2 [...] encounter Medical Devices Implanted Type Area Senior Backup Administrator Device Identifier Shelf Expiration Date Model / Serial / Lot Port Power Mri W/8fr Cath - [id number] Implanted:Qty: 1 on 09/26/2020 by Simone Michelle MD at OR [facility] Right: Chest CR BARD : PERIPHERAL VASCULAR 10/12/2021 [id number] / / [id number] Description:right IJ Lens Intraoc 19.0 - [id number] - [id number] Implanted:Qty: 1 on 02/03/2021 by Chris Sexton MD at OR [facility] Right: Eye BAUSCH [employer] LOMB 09/11/2025 [id number] / [id number] / Lens Intraoc 19.0 - [id number] - [id number] Implanted:Qty: 1 on 02/24/2021 by Chris Sexton MD at OR [facility] Left: Eye BAUSCH & LOMB 10/12/2025 [id number] / [id number] System Urolift - [id number] Implanted:Qty: 2 on 03/17/2023 by Devyn Paniagua MD at OR [facility] N/A: Urethra [employer] 11/18/2023 [id number] / / [id number] System Urolift - [id number] Implanted:Qty: 3 on 03/17/2023 by Devyn Paniagua MD at OR [facility] N/A: Urethra [employer] 11/03/2023 [id number] / / [id number] documented as of this encounter Procedures Procedure Name Priority Date/Time Associated Diagnosis Comments DIFFERENTIAL, AUTOMATED STAT 10/28/2023 8:04 AM EST Multiple myeloma without remission (HCC) CBC STAT 10/28/2023 8:04 AM EST Multiple myeloma without remission (HCC) CBC STAT 10/28/2023 8:04 AM EST Multiple myeloma without remission (HCC) documented in this encounter Results * (ABNORMAL) DIFFERENTIAL, AUTOMATED (10/28/2023 8:04 AM EST) WBC 5.32 4.00 - 10.80 K/uL 10/28/2023 8:11 AM EST [facility] Neutrophils % 58.5 40.0 - 75.0 % 10/28/2023 8:11 AM EST [facility] Lymphocytes % 19.0 18.0 - 42.0 % 10/28/2023 8:11 AM EST [facility]02 Monocytes % 16.0(H) 1.0 - 11.0 % 10/28/2023 8:11 AM EST [facility]02 Eosinophils % 5.6 0.0 - 6.0 % 10/28/2023 8:11 AM [facility] 56- Basophils % 0.9 0.0 - 2.0 % 10/28/2023 8:11 AM [facility] 56- Absolute Neutrophils 3.11 1.80 - 7.70 K/uL 10/28/2023 8:11 AM [facility] 56- Absolute Lymphocytes 1.01 1.00 - 4.80 K/ul 10/28/2023 8:11 AM [facility] 56- Absolute Monocytes 0.85 0.00 - 1.10 K/uL 10/28/2023 8:11 AM [facility] 56- Absolute Eosinophils 0.30 0.00 - 0.70 K/uL 10/28/2023 8:11 AM [facility] 56- Absolute Basophils 0.05 0.00 - 0.20 K/uL 10/28/2023 8:11 AM [facility] 56- Blood Venous blood specimen / Unknown Venipuncture / Unknown 10/28/2023 8:04 AM EST 10/28/2023 8:04 AM EST Rosalio Amaral MD LAB BLOOD ORDERABLES [facility] 56 [address] [place] [address] * CBC (10/28/2023 8:04 AM EST) WBC 5.32 4.00 - 10.80 K/uL 10/28/2023 8:11 AM [facility] 56 RBC 4.83 4.50 - 5.25 M/uL 10/28/2023 8:11 AM [facility] 56- HGB 15.0 14.0 - 16.8 g/dL 10/28/2023 8:11 AM [facility] 56 HCT 45.2 40.0 - 48.4 % 10/28/2023 8:11 AM [facility] 56- MCV 93.6 82.0 - 99.5 fL 10/28/2023 8:11 AM [facility] 56 MCH 31.1 27.0 - 34.0 pg 10/28/2023 8:11 AM EST [facility] 56- MCHC 33.2 32.0 - 36.0 g/dL 10/28/2023 8:11 AM EST [facility] 56- RDW 15.3 11.5 - 15.5 % 10/28/2023 8:11 AM EST [facility] 56- PLT 359 140 - 400 K/uL 10/28/2023 8:11 AM EST [facility] 56- MPV 9.8 6.6 - 11.1 fL 10/28/2023 8:11 AM EST [facility] 56- Blood Venous blood specimen / Unknown Venipuncture / Unknown 10/28/2023 8:04 AM EST 10/28/2023 8:04 AM EST Rosalio Amaral MD LAB BLOOD ORDERABLES [facility] [address]- [address] [place] [address] documented in this encounter Visit Diagnoses Diagnosis PAF (paroxysmal atrial fibrillation) (HCC) Atrial fibrillation Anticoagulation management encounter Encounter for therapeutic drug monitoring supervisor intermediates current use of anticoagulant therapy Multiple myeloma [...] and were consensually agreed upon. Care Teams Tire Rebuilder Relationship Specialty Start Date End Date Jaime Garcia MD [address] [place] [address] [place] [address] PCP - General Family Medicine 10/15/20 documented as of this encounter
--- OUTSIDE RECORDS SUMMARY | 2023-12-07 07:53 | External Medical Summary ---
Author Name Unknown Address Unknown Organization [id number]:[facility] [place] [address] [facility] [address] [facility] [place] [address] Laboratory Report Ordering Provider Test Date Status MONIQUE PEREZ 10/28/2023 08:04:00 Final Observation Date Value Abnormality Reference (Units) Status PARAPROTEIN NORMAL/ABNORMAL 10/28/2023 08:04:00 Normal Normal Final Protein 10/28/2023 08:04:00 5.6 Below low normal 6.0-8.3 (g/dL) Final Albumin/Protein.total [Pure mass fraction] in Serum or Plasma by Electrophoresis 10/28/2023 08:04:00 3.18 Below low normal 3.30-4.40 (g/dL) Final Alpha 1 globulin/Protein.tota l [Pure mass fraction] in Serum or Plasma by Electrophoresis 10/28/2023 08:04:00 0.30 0.10-0.30 (g/dL) Final Alpha 2 globulin/Protein.tota l [Pure mass fraction] in Serum or Plasma by Electrophoresis 10/28/2023 08:04:00 1.06 Above high normal 0.60-1.00 (g/dL) Final Beta globulin/Protein.tota l [Pure mass fraction] in Serum or Plasma by Electrophoresis 10/28/2023 08:04:00 0.67 Below low normal 0.80-1.30 (g/dL) Final Gamma globulin/Protein.tota l [Pure mass fraction] in Serum or Plasma by Electrophoresis 10/28/2023 08:04:00 0.39 Below low normal 0.70-1.70 (g/dL) Final Protein Fractions [Interpretation] in Serum or Plasma by Electrophoresis Narrative 10/28/2023 08:04:00 No paraprotein detected. Decreased gamma fraction. Final Performing Location [facility] [place] [address] [facility] [place] [address]
--- OUTSIDE RECORDS SUMMARY | 2023-12-07 07:53 | External Medical Summary ---
Author Name Unknown Address Unknown Organization K01:[facility] [place] [facility] [address] [place] [address] Laboratory Report Ordering Provider Test Date Status ANAMONIQUE 10/28/2023 08:04:00 Final Observation Date Value Abnormality Reference (Units ) Status Harmon light chains, Free, Serum 10/28/2023 08:04:00 9.02 3.30-19.40 (mg/L) Final Lambda light chains, free, Serum 10/28/2023 08:04:00 145.26 Above high normal 5.71-26.30 (mg/L) Final KAPPA LAMBDA FLC RATIO 10/28/2023 08:04:00 0.06 Below low normal 0.26-1.65 Final Performing Location [facility] [place] [facility] [place] [address]
--- OUTSIDE RECORDS SUMMARY | 2023-12-07 07:53 | External Medical Summary | Summary of Care ---
Author Name Unknown Organization [facility] Address [address] [place] [address] Phone [phone] Care Team Providers Care Equine Pharmacology Technician Name Role Phone Jaime Garcia MD Primary Care Provide r Reason for Visit * Reason Comments Medication Refill Encounter Details Date Type Department Care Team (Late st Contact Info) Description 10/28/2023 Refill [facility] Tyree UGARTE [address] [facility] [place] [address] Rosalio Amaral MD [address] [facility] [place] [address] Multiple myeloma in relapse (HCC) Allergies Active [...] A1c goal of less than 7.0% ([facility]) Use as directed daily. Test once daily DxE11.9 100 Strip 5 1 Active LancetsIndications: Type 2 diabetes mellitus with hemoglobin A1c goal of less than 7.0% ([facility]) Test once daily DxE11.9. 100 Each 5 1 Active Albuterol Sulfate HFA 108 (90 Base) MCG/ACT Inhalation Aerosol SolutionIndications :Acute bronchitis, antibiotics not indicated Inhale 2 Puffs by mouth every 6 hours as needed for Cough or Shortness of Breath. 54 g 1 1 Active Acyclovir 400 MG Oral Tablet (Zovirax)Indication s:Lambda light chain myeloma ([facility]) Take one tablet once daily 180 Tablet [...] ns:Multiple myeloma not having achieved remission ([facility]) 5 tabs 2 times monthly 10 Tablet [...] Information Patient taking differently: 50 mcg Oral [id number], Reported on 04/14/2023 Warfarin Sodium 2.5 MG [...] morning. 180 Tablet 1 3 Active Pen Champion 32G X 4 MM Use as directed. [...] without long-term current use of insulin ([facility]) Use as directed to check blood sugars [...] Information Patient not taking.Reported on 10/04/2023 Nystatin [id number] UNIT/ML Mouth/Throat SuspensionIndicatio ns:Multiple myeloma in relapse ([facility]) Swish and swallow 5 mL in the [...] Telephone Encounter - Olivia Campbell MD - 10/28/2023 6:41 AM ESTRefused Prescriptions: Disp Refills Dapsone 25 MG Oral Tablet 90 Tab*1 Sig: TAKE ONE TABLET BY MOUTH EVERY DAYRefused By: Margo CAMPBELL for Refusal: Patient unknown to prescriber documented in this encounter Plan of Treatment Upcoming Encounters Date Type Department Care Team (Late st Contact Info) Description 10/28/2023 7:50 AM EST Laboratory Laboratory Scenery [place] [address] [place] [phone] [place], Lab Scenery [address] [place] [address] 10/28/2023 9:00 AM EST Hem/Onc Treatment Hematology/Oncology Treatment, [place] [address] [place] [address] [place], Chair 4 Hem Onc Scenery [address] [place] [address] 10/28/2023 5:30 PM EST Anticoagulation Pharmacy, [address] [place] [address] [place] [address] 11/10/2023 9:00 AM EST Office Visit [facility] Tyree UGARTE [address] [facility] [place] [address] Rosalio Amaral MD [address] [facility] [place] [address] 11/18/2023 2:30 PM EST Home Visit [facility] [address] [facility] [place] [address] Sulma Seth, BOBBY [address] [facility] [place] [address] 12/09/2023 3:30 PM EDT Office Visit [facility] Tyree UGARTE [address] [facility] [place] [address] Rosalio Amaral MD [address] [facility] [place] [address] 12/15/2023 8:30 AM EDT Office Visit Cardiology, [facility] [address] [place] [address] Beth Gibbs CRNP [address] [place] [address] 12/29/2023 9:00 AM EDT Office Visit Otolaryngology [facility] [address] [place] [address] Haley Aguero PA-C [address] [place] [address] 03/08/2024 9:00 AM EDT Office Visit Cardiology [address] [place] [address] Tim Ruiz PA-C [address] [place] [address] 10/30/2024 1:45 PM EST Office Visit Urology, [facility] [address] [place] [address] Devyn Paniagua MD [address] [facility] [address] [place] [address] Health Maintenance Due Date Last Done Comments [...] Additional history exists CKD PHOS USE SMARTSET 83258 08/16/2024 1201/2023, 07/25/2023, 07/06/2023, Additional history exists Albumin/Creatinine Ratio 09/08/2024 023, 06/22/2023, 05/27/2023, Additional history exists CKD HGB USE SMARTSET 88776 09/08/202409/08, 09/08/2023, 08/16/2023, Additional history exists DTaP,Tdap,and [...] this encounter Medical Devices Implanted Type Area Moss Picker Device Identifier Shelf Expiration Date Model / Serial / Lot Port Power Mri W/8fr Cath - [id number] Implanted:Qty: 1 on 09/26/2020 by Simone Michelle MD at OR [facility] Right: Chest CR BARD : PERIPHERAL VASCULAR 10/12/2021 [id number] / / [id number] Description:right IJ Lens Intraoc 19.0 - [id number] - [id number] Implanted:Qty: 1 on 02/03/2021 by Chris Sexton MD at OR [facility] Right: Eye BAUSCH & LOMB 09/11/2025 [id number] / [id number] / Lens Intraoc 19.0 - [id number] - [id number] Implanted:Qty: 1 on 02/24/2021 by Chris Sexton MD at OR [facility] Left: Eye BAUSCH & LOMB 10/12/2025 [id number] / [id number] / [id number] System Urolift - [id number] Implanted:Qty: 2 on 03/17/2023 by Devyn Paniagua MD at OR [facility] N/A: Urethra [employer] 11/18/2023 [id number] / / [id number] System Urolift - [id number] Implanted:Qty: 3 on 03/17/2023 by Devyn Paniagua MD at OR [facility] N/A: Urethra [employer] 11/03/2023 [id number] / / [id number] documented as of this encounter Visit Diagnoses [...] and were consensually agreed upon. Care Teams Equine Pharmacology Technician Relationship Specialty Start Date End Date Sellathurai, Thiviyanath, MD [address] [place] [address] [place] [address] PCP - General Family Medicine 10/15/20 documented as of this encounter
--- OUTSIDE RECORDS SUMMARY | 2023-12-07 07:53 | External Medical Summary ---
Author Name Unknown Address Unknown Organization K09:[facility] [place] [address] [place] [address] Laboratory Report Ordering Provider Test Date Status MONIQUE PEREZ 10/28/2023 08:04:00 Final Observation Date Value Abnormality Reference (Units ) Status Phosphate 10/28/2023 08:04:00 3.1 2.5-4.8 (m g/dL) Final Performing Location [facility] [place] [address] [place] [address]
--- OUTSIDE RECORDS SUMMARY | 2023-12-07 07:53 | External Medical Summary ---
Author Name Unknown Address Unknown Organization K09:[facility] 56-02 - [address] [place] [address] Laboratory Report Ordering Provider Test Date Status MONIQUE PEREZ 10/28/2023 08:04:00 Final Observation Date Value Abnormality Reference (Units ) Status BUN 10/28/2023 08:04:00 11 6-20 (mg/dL) Final Creatinine 10/28/2023 08:04:00 1.7 Above high normal 0.6-1.2 (mg/dL) Final Glomerular filtration rate/1.73 sq M.predicted [Volume Rate/Area] in Serum, Plasma or Blood by Creatinine-based formula (CKD-EPI) 10/28/2023 08:04:00 46 Below low normal >=60 (mL/min) Final eGFR is calculated based on the CKD-EPI 2020 equation SODIUM 10/28/2023 08:04:00 138 135-146 (m mol/L) Final Potassium 10/28/2023 08:04:00 4.7 3.5-5.1 (m mol/L) Final Cl 10/28/2023 08:04:00 101 98-107 (mm ol/L) Final CO2 10/28/2023 08:04:00 30 22-32 (mmo l/L) Final Anion gap 10/28/2023 08:04:00 7 7-15 (mmol /L) Final Glucose 10/28/2023 08:04:00 102 70-120 (mg /dL) Final Albumin 10/28/2023 08:04:00 3.9 3.8-5.0 (g /dL) Final AST (Aspartate aminotransferase) 10/28/2023 08:04:00 22 10-50 (U/L) Fin al Alk Phos 10/28/2023 08:04:00 109 35-130 (U/ L) Final Bilirubin, Total 10/28/2023 08:04:00 0.3 <=1 .2 (mg/dL) Final Calcium 10/28/2023 08:04:00 10.2 8.4-10.2 ( mg/dL) Final Protein 10/28/2023 08:04:00 6.2 6.0-8.3 (g /dL) Final ALT (Alanine aminotransferase) 10/28/2023 08:04:00 8 Below low normal 10-50 (U/L) Final Performing Location [facility] [place] 40- [address] [place] [address]
--- OUTSIDE RECORDS SUMMARY | 2023-12-07 07:53 | External Medical Summary ---
Author Name Unknown Address Unknown Organization K09:[facility] [address] [place] [address] Laboratory Report Ordering Provider Test Date Status MONIQUE PEREZ 10/28/2023 08:04:00 Final Observation Date Value Abnormality Reference (Units ) Status SYNC LEUKOCYTES IN BLOOD BY AUTOMATED COUNT 10/28/2023 08:04:00 5.32 4.00-10.80 (K/uL) Final Segs 10/28/2023 08:04:00 58.5 40.0-75.0 (%) Final Lymphs % 10/28/2023 08:04:00 19.0 18.0-42.0 (%) Final Monos 10/28/2023 08:04:00 16.0 Above high normal 1.0-11.0 (%) Final Eosinophils 10/28/2023 08:04:00 5.6 0.0-6.0 (%) Final Basos 10/28/2023 08:04:00 0.9 0.0-2.0 (%) Final Absolute Segs 10/28/2023 08:04:00 3.11 1.80-7.70 (K/uL) Final Lymphs, absolute 10/28/2023 08:04:00 1.01 1.00-4.80 (K/ul) Final Monos, Abs 10/28/2023 08:04:00 0.85 0.00-1.10 (K/uL) Final Eos, Abs 10/28/2023 08:04:00 0.30 0.00-0.70 (K/uL) Final Basos, Abs 10/28/2023 08:04:00 0.05 0.00-0.20 (K/uL) Final Performing Location [facility] [place] [address] [place] [address]
--- OUTSIDE RECORDS SUMMARY | 2023-12-07 07:53 | External Medical Summary | Summary of Care ---
Author Name Unknown Organization [facility] Address [address] [place] [address] Phone [phone] Care Team Providers Care Experience Design Director Name Role Phone Jaime Garcia MD Primary Care Provide r Encounter Details Date Type Department Care Team (Late st Contact Info) Description 10/14/2023 Orders Only [facility] Tyree UGARTE [address] [facility] [place] [address] Rosalio Amaral MD [address] [facility] [place] [address] Lambda light chain myeloma (HCC)* Allergies Active Allergy Reactions Criticality Noted Date Comments Atorvastatin Muscle pain High 03/30/2019 Ezetimibe Muscle pain High 01/25/2020 documented as of this encounter (statuses as of 10/25/2023) Medications Medication Sig Dispensed Refills Start Date [...] goal of less than 7.0% ([facility]) Test once daily DxE11.9. 100 Each 5 1 Active Albuterol Sulfate HFA 108 (90 Base) MCG/ACT Inhalation Aerosol SolutionIndications :Acute bronchitis, antibiotics not indicated Inhale 2 Puffs by mouth every 6 hours as needed for Cough or Shortness of Breath. 54 g 1 1 Active Acyclovir 400 MG Oral Tablet (Zovirax)Indication s:Lambda light chain myeloma ([facility]) Take one tablet once daily 180 [...] myeloma not having achieved remission ([facility]) 5 tabs 2 times monthly 10 [...] Information Patient taking differently: 50 mcg Oral [id number], Reported on 04/14/2023 Warfarin Sodium 2.5 MG Oral Tablet (Coumadin)Indicatio ns:Atrial fibrillation, unspecified type (HCC),Anticoagulati on management encounter,group home current use of anticoagulant [...] 10 Tablet 5 3 10/27/19 24 Active Finasteride 5 MG Oral Tablet (Proscar) [...] morning. 180 Tablet 1 3 Active Pen Swan 32G X 4 MM Use as directed. [...] long-term current use of insulin ([facility]) Use as directed to check blood [...] Information Patient not taking.Reported on 10/04/2023 Nystatin 442078 UNIT/ML Mouth/Throat SuspensionIndicatio ns:Multiple myeloma in relapse ([facility]) Swish and swallow 5 mL in [...] as of this encounter (statuses as of 10/25/2023) Active Problems Problem Noted Date Diagnosed Date [...] without remission 06/14/2014 Overview: Dr Rodriges/ [facility] ADVANCE DIRECTIVE INFORMATION 10/13/2006 Overview: No, Advance Directive brochure offered , patient declined. Degeneration of lumbosacral intervertebral disc 02/19/2005 documented as of this encounter (statuses as of 10/25/2023) Resolved Problems Problem Noted Date Diagnosed Date [...] as of this encounter (statuses as of 10/25/2023) Immunizations Name Administration Dates Next Due COVID-19, [...] 10/28/2023 7:50 AM EST Laboratory Laboratory Scenery [place] [address] [place] [address] [place], Lab Scenery [address] [place] [address] [address] 10/28/2023 9:00 AM EST Hem/Onc Treatment Hematology/Oncology Treatment, [place] [address] [place] [address] [place], Chair 4 Hem Onc Scenery [address] [place] [address] 10/28/2023 5:30 PM EST Anticoagulation Pharmacy, [address] [place] [address] [place] [address] 11/10/2023 9:00 AM EST Office [facility] Tyree Jordan [address] [place] [address] Rosalio Amaral MD [address] [place] [address] 12/09/2023 3:30 PM EDT Office Visit Hematology [facility] [place] Tyree UGARTE [address] [place] [address] Rosalio Amaral MD [address] [place] [address] 12/15/2023 8:30 AM EDT Office Visit Cardiology, [facility] [address] [place] [address] Beth iGbbs CRNP [address] [place] [address] 12/29/2023 9:00 AM EDT Office Visit Otolaryngology [facility] [address] [place] [address] Haley Aguero PA-C [address] [place] [address] 03/08/2024 9:00 AM EDT Office Visit Cardiology [address] [place] [address] Tim Ruiz PA-C [address] [place] [address] 10/30/2024 1:45 PM EST Office Visit Urology, [facility] [address] [place] [address] Devyn Paniagua MD [address] [place] [address] [place] [address] Scheduled Orders Name Type Priority Associated Diagnoses Orde r Schedule SERUM PROTEIN ELECTROPHORESIS REFLEX PROFILE Lab STAT Lambda light chain myeloma (HCC) Every Month for 10 Occurrences starting 10/24/2023 until 10/26/2024 SERUM FREE LIGHT CHAINS Lab STAT Lambda light chain myeloma (HCC) Every Month for 10 Occurrences starting 10/24/2023 until 10/26/2024 Health Maintenance Due Date Last Done Comments [...] Additional history exists CKD PHOS USE SMARTSET 30436 08/16/2024 12/0 01/2023, 07/25/2023, 07/06/2023, Additional history exists Albumin/Creatinine Ratio 09/08/2024 023, 06/22/2023, 05/27/2023, Additional history exists CKD HGB USE SMARTSET 38866 09/08/202409/08, 09/08/2023, 08/16/2023, Additional history exists DTaP,Tdap,and [...] this encounter Medical Devices Implanted Type Area Arresting Gear Operator Device Identifier Shelf Expiration Date Model / Serial / Lot Port Power Mri W/8fr Cath - [id number] Implanted:Qty: 1 on 09/26/2020 by Simone Michelle MD at OR [facility] Right: Chest CR BARD : PERIPHERAL VASCULAR 10/12/2021 [id number] / / [id number] Description:right IJ Lens Intraoc 19.0 - [id number] - [id number] Implanted:Qty: 1 on 02/03/2021 by Chris Sexton MD at OR [facility] Right: Eye [employer]USCH [employer] LOMB 09/11/2025 [id number] / [id number] / Lens Intraoc 19.0 - [id number] - [id number] Implanted:Qty: 1 on 02/24/2021 by Chris Sexton MD at OR [facility] Left: Eye BAUSCH & LOMB 10/12/2025 [id number] / [id number] / [id number] System Urolift - [id number] Implanted:Qty: 3 on 03/17/2023 by Devyn Paniagua MD at OR [facility] N/A: Urethra [employer] 11/03/2023 [id number] / / [id number] documented as of this encounter Visit Diagnoses [...] and were consensually agreed upon. Care Teams Experience Design Director Relationship Specialty Start Date End Date Jaime Garcia MD [address] [place] [address] [place] [address] PCP - General Family Medicine 10/15/20 documented as of this encounter
--- OUTSIDE RECORDS SUMMARY | 2023-12-07 07:53 | External Medical Summary ---
Author Name Unknown Address Unknown Organization K09:[facility] [address] [address] Laboratory Report Ordering Provider Test Date Status MONIQUE PEREZ 10/28/2023 08:04:00 Final Observation Date Value Abnormality Reference (Units ) Status WBC, Total 10/28/2023 08:04:00 5.32 4.00-10.8 0 (K/uL) Final RBC 10/28/2023 08:04:00 4.83 4.50-5.25 (M/uL) Final Hemoglobin 10/28/2023 08:04:00 15.0 14.0-16.8 (g/dL) Final HCT 10/28/2023 08:04:00 45.2 40.0-48.4 (%) Final MCV 10/28/2023 08:04:00 93.6 82.0-99.5 (fL) Final MCH 10/28/2023 08:04:00 31.1 27.0-34.0 (pg) Final MCHC 10/28/2023 08:04:00 33.2 32.0-36.0 (g/dL) Final RDW 10/28/2023 08:04:00 15.3 11.5-15.5 (%) Final Platelets 10/28/2023 08:04:00 359 140-400 (K /uL) Final MPV 10/28/2023 08:04:00 9.8 6.6-11.1 ( fL) Final Performing Location [facility] [address] [place] [address]
--- OUTSIDE RECORDS SUMMARY | 2023-12-07 07:53 | External Medical Summary ---
Author Name Unknown Address Unknown Organization K09[facility] [address] [place] [address] Laboratory Report Ordering Provider Test Date Status TASNEEM SLAUGHTER 10/28/2023 08:04:00 Final Warfarin Therapy
INR: 2 .0-3.0 conventional anticoagulation
INR: 2.5- 3.5 high intensity anticoagulation Observation Date Value Abnormality Reference (Units ) Status PT 10/28/2023 08:04:00 19.6 Above high normal 11 .6-15.2 (seconds) Final INR 10/28/2023 08:04:00 1.6 Above high normal 0. 8-1.2 Final Performing Location [facility] [address] [place] [address]
--- OUTSIDE RECORDS SUMMARY | 2023-12-07 07:53 | External Medical Summary | Summary of Care ---
Author Name Unknown Organization [facility] Address [address] [place] [address] Phone [phone] Care Team Providers Care Cell Preparer Name Role Phone Jaime Garcia MD Primary Care Provide r Reason for Visit * Reason Comments Outpatient Testing Encounter Details Date Type Department Care Team (Late st Contact Info) Description 10/28/2023 7:50 AM EST Laboratory Laboratory Scenery [facility] [address] [place] [address] [place], Lab Scenery [address] [place] [address] PAF (paroxysmal atrial fibrillation) ([facility]); Anticoagulation management encounter; buttermaker continuous churn current use of anticoagulant therapy; Multiple myeloma without remission ([facility]); Multiple myeloma in relapse ([facility]); Lambda light chain myeloma ([facility]) Allergies Active Allergy Reactions Criticality [...] at bedtime. 1 Each 0 1 Active PetCoachuch Ultra Blue In Vitro Strip (Glucose Blood)Indications:T [...] Oral Tablet (Zovirax)Indication s:Lambda light chain myeloma ([facility]) Take one tablet once daily [...] (Decadron)Indicatio ns:Multiple myeloma not having achieved remission ([facility]) 5 tabs 2 times monthly [...] Information Patient taking differently: 50 mcg Oral [id number], Reported on 04/14/2023 Warfarin Sodium 2.5 MG Oral Tablet (Coumadin)Indicatio ns:Atrial fibrillation, unspecified type (HCC),Anticoagulati on management encounter,buttermaker continuous churn current use of anticoagulant therapy,Paroxysmal atrial fibrillation [...] morning. 180 Tablet 1 3 Active Pen [place] 32G X 4 MM Use as directed. [...] disease, without long-term current use of insulin ([facility]) Use as directed to check [...] Information Patient not taking.Reported on 10/04/2023 Nystatin 730377 UNIT/ML Mouth/Throat SuspensionIndicatio ns:Multiple myeloma in relapse ([facility]) Swish and swallow 5 mL [...] without remission 06/14/2014 Overview: Dr Rodriges/ [facility] ADVANCE DIRECTIVE INFORMATION 10/13/2006 Overview: [...] 9:00 AM EST Hem/Onc Treatment Hematology/Oncology Treatment, [place] [address] [place] [address] [place], Chair 4 Hem Onc Scenery [address] [place] [address] 10/28/2023 5:30 PM EST Anticoagulation Pharmacy, [address] [place] [address] [place] [address] 11/10/2023 9:00 AM EST Office [facility] Nikki Nuevo [address] [facility] [place] [address] Rosalio Amaral MD [address] [facility] [place] [address] 11/18/2023 2:30 PM EST Home Visit [facility]inger at [facility] [address] [place] [address] Sulma Seth RN [address] [place] [address] 12/09/2023 3:30 PM EDT Office Visit [facility] TORITO Nuevo [address] [place] [address] Rosalio Amaral MD [address] [place] [address] 12/15/2023 8:30 AM EDT Office Visit Cardiology, [facility] [address] [place] [address] Beth Gibbs CRNP [address] [place] [address] 12/29/2023 9:00 AM EDT Office Visit Otolaryngology [facility] [address] [place] [address] Haley Aguero PA-C [address] [place] [address] 03/08/2024 9:00 AM EDT Office Visit Cardiology [address] [place] [address] Tim Ruiz PA-C [address] [place] [address] 10/30/2024 1:45 PM EST Office Visit Urology, [facility] [address] [place] [address] Devyn Paniagua MD [address] [place] [address] [place] [phone] Pending Results Name Type Priority Associated Diagnoses Date /Time PT INR Lab Routine PAF (paroxysmal atrial fibrillation) (HCC) Anticoagulation management encounter skilled nursing current use of anticoagulant therapy 10/28/2023 8:04 AM EST COMPREHENSIVE METABOLIC PANEL Lab STAT Multiple myeloma without remission ([facility]) 10/28/2023 8:04 AM EST CBC WITH WBC DIFFERENTIAL Lab STAT Multiple myeloma without remission ([facility]) 10/28/2023 8:04 AM EST URIC ACID Lab Routine Multiple myeloma in relapse ([facility]) 10/28/2023 8:04 AM EST SERUM PROTEIN ELECTROPHORESIS REFLEX PROFILE Lab STAT Lambda light chain myeloma ([facility]) 10/28/2023 8:04 AM EST SERUM FREE LIGHT CHAINS Lab STAT Lambda light chain myeloma ([facility]) 10/28/2023 8:04 AM EST CBC Lab STAT Multiple myeloma without remission ([facility]) 10/28/2023 8:04 AM EST DIFFERENTIAL, AUTOMATED Lab STAT Multiple myeloma without remission ([facility]) 10/28/2023 8:04 AM EST Health [...] Additional history exists CKD PHOS USE SMARTSET 34282 08/16/2024 120 01/2023, 07/25/2023, 07/06/2023, Additional history exists Albumin/Creatinine Ratio 09/08/2024 023, 06/22/2023, 05/27/2023, Additional history exists CKD HGB USE SMARTSET 98062 09/08/202409/08, 09/08/2023, 08/16/2023, Additional history exists DTaP,Tdap,and [...] Medical Devices Implanted Type Area Director Of State Device Identifier Shelf Expiration Date Model / Serial / Lot Port Power Mri W/8fr Cath - [id number] Implanted:Qty: 1 on 09/26/2020 by Simone Michelle MD at OR [facility] Right: Chest CR BARD : PERIPHERAL VASCULAR 10/12/2021 [id number] / / [id number] Description:right IJ Lens Intraoc 19.0 - [id number] - [id number] Implanted:Qty: 1 on 02/03/2021 by Chris Sexton MD at OR [facility] Right: Eye BAUSCH [employer] LOMB 09/11/2025 [id number] / [id number] / Lens Intraoc 19.0 - [id number] - [id number] Implanted:Qty: 1 on 02/24/2021 by Chris Sexton MD at OR [facility] Left: Eye BAUSCH & LOMB 10/12/2025 [id number] / [id number] / [id number] System Urolift - [id number] Implanted:Qty: 2 on 03/17/2023 by Devyn Paniagua MD at OR [facility] N/A: Urethra [employer] 11/18/2023 [id number] / / [id number] System Urolift - [id number] Implanted:Qty: 3 on 03/17/2023 by Devyn Paniagua MD at OR [facility] N/A: Urethra [employer] 11/03/2023 [id number] / / [id number] documented as of this encounter Visit Diagnoses Diagnosis PAF (paroxysmal atrial fibrillation) (HCC) Atrial fibrillation Anticoagulation management encounter Encounter for therapeutic drug monitoring skilled nursing current use of anticoagulant therapy Multiple myeloma [...] were consensually agreed upon. Care Teams Cell Preparer Relationship Specialty Start Date End Date Jaime Garcia MD [address] [place] [address] [place] [address] PCP - General Family Medicine 10/15/20 documented as of this encounter
--- OUTSIDE RECORDS SUMMARY | 2023-12-07 07:54 | External Medical Summary | Summary of Care ---
Author Name Unknown Organization [facility] Address [address] [place] [address] Phone [phone] Care Team Providers Care Gis Professor Name Role Phone Jaime Garcia MD Primary Care Provide r Reason for Visit * Reason Comments Dosage Adjustment Via Phone (anticoag Cl inic) Encounter Details Date Type Department Care Team (Latest Contact Info) Description 10/25/2023 7:00 AM EST Anticoagulation Pharmacy, [address] [place] [address] [place] [address] PAF (paroxysmal atrial fibrillation) ([facility])* Allergies Active Allergy Reactions Criticality [...] of less than 7.0% ([facility]) Use as directed daily. Test once daily DxE11.9 100 Strip 5 1 Active LancetsIndications: Type 2 diabetes mellitus with hemoglobin A1c goal of less than 7.0% ([facility]) Test once daily DxE11.9. 100 Each 5 1 Active Albuterol Sulfate HFA 108 (90 Base) MCG/ACT Inhalation Aerosol SolutionIndications :Acute bronchitis, antibiotics not indicated Inhale 2 Puffs by mouth every 6 hours as needed for Cough or Shortness of Breath. 54 g 1 1 Active Acyclovir 400 MG Oral Tablet (Zovirax)Indication s:Lambda light chain myeloma ([facility]) Take one tablet once daily [...] (Decadron)Indicatio ns:Multiple myeloma not having achieved remission ([facility]) 5 tabs 2 times monthly [...] Information Patient taking differently: 50 mcg Oral [id number], Reported on 04/14/2023 Warfarin Sodium 2.5 MG [...] morning. 180 Tablet 1 3 Active Pen [place] 32G X 4 MM Use as directed. [...] Information Patient not taking.Reported on 10/04/2023 Nystatin 800066 UNIT/ML Mouth/Throat SuspensionIndicatio ns:Multiple myeloma in relapse ([facility]) Swish and swallow 5 mL [...] without remission 06/14/2014 Overview: Dr Rodriges/ [facility] ADVANCE DIRECTIVE INFORMATION 10/13/2006 Overview: No, [...] Progress Notes * Barbara Jiménez RPh - 10/25/2023 9:52 AM EST Patient Phone Numbers Lab appointment today canceled d/t weather. Rescheduled for 10/28. Called and spoke to patient. Denies any changes/concerns. Will plan to follow up on Tuesday. Instructed to contact clinic sooner if needed. Barbara Jiménez RPh, PharmD Clinical Pharmacist - Capsule Filling Machine Operator Medication Therapy [facility] 10/25/2023, 9:54 AM [phone] documented in this encounter Plan of Treatment Upcoming Encounters Date Type Department Care Team (Late st Contact Info) Description 10/25/2023 2:30 PM EST [place] Visit [place] [facility] [place], [facility] [address] [facility] [place] [address] Sulma Seth, BOBBY [address] [facility] [place] [address] 10/28/2023 7:50 AM EST Laboratory Laboratory Scenery [place] [address] [place] [phone] [place], Lab Scenery [address] [facility] [place] [address] 10/28/2023 9:00 AM EST Hem/Onc Treatment Hematology/Oncology Treatment, [place] [address] [place] [address] [place], Chair 4 Hem Onc Scenery [address] [place] [address] 10/28/2023 5:30 PM EST Anticoagulation Pharmacy, [address] [place] [address] [place] [address] 11/10/2023 9:00 AM EST Office [facility] Tyree UGARTE [address] [place] [address] Rosalio Amaral MD [address] [place] [address] 12/09/2023 3:30 PM EDT Office Visit [facility] Tyree UGARTE [address] [place] [address] Rosalio Amaral MD [address] [place] [address] [place] [address] 12/15/2023 8:30 AM EDT Office Visit Cardiology, [facility] [address] [facility] [place] [address] Beth Gibbs CRNP [address] [place] [address] 12/29/2023 9:00 AM EDT Office Visit Otolaryngology [facility] [address] [place] [address] Haley Aguero PA-C [address] [place] [address] 03/08/2024 9:00 AM EDT Office Visit Cardiology [address] [place] [address] Tim Ruiz PA-C [address] [place] [address] 10/30/2024 1:45 PM EST Office Visit Urology, [facility] [address] [facility] [place] [address] Devyn Paniagua MD [address] [address] [place] [address] Health Maintenance Due Date Last Done Comments [...] Additional history exists CKD PHOS USE SMARTSET 68548 08/16/2024 12/0 01/2023, 07/25/2023, 07/06/2023, Additional history exists Albumin/Creatinine Ratio 09/08/2024 023, 06/22/2023, 05/27/2023, Additional history exists CKD HGB USE SMARTSET 96783 09/08/202409/08, 09/08/2023, 08/16/2023, Additional history exists DTaP,Tdap,and [...] this encounter Medical Devices Implanted Type Area Clinical Appeals Rn Device Identifier Shelf Expiration Date Model / Serial / Lot Port Power Mri W/8fr Cath - [id number] Implanted:Qty: 1 on 09/26/2020 by Simone Michelle MD at OR [facility] Right: Chest CR BARD : PERIPHERAL VASCULAR 10/12/2021 [id number] / / [id number] Description:right IJ Lens Intraoc 19.0 - [id number] - [id number] Implanted:Qty: 1 on 02/03/2021 by Chris Sexton MD at OR [facility] Right: Eye BAUSCH [employer] LOMB 09/11/2025 [id number] / [id number] / Lens Intraoc 19.0 - [id number] - [id number] Implanted:Qty: 1 on 02/24/2021 by Chris Sexton MD at OR [facility] Left: Eye BAUSCH & LOMB 10/12/2025 [id number] / [id number] System Urolift - [id number] Implanted:Qty: 3 on 03/17/2023 by Devyn Paniagua MD at OR [facility] N/A: Urethra [employer] 11/03/2023 [id number] / / [id number] documented as of this encounter Visit Diagnoses [...] and were consensually agreed upon. Care Teams Gis Professor Relationship Specialty Start Date End Date Jaime Garcia MD [address] [place] [address] [place] [address] PCP - General Family Medicine 10/15/20 documented as of this encounter
--- OUTSIDE RECORDS SUMMARY | 2023-12-07 07:54 | External Medical Summary | Summary of Care ---
Author Name Unknown Organization [facility] Address [address] [place] [address] Phone [phone] Care Team Providers Care Software Product Specialist Name Role Phone Jaime Garcia MD Primary Care Provide r Reason for Visit * Reason Onset Date Comments Appointment 10/20/2023 Labs/ Treatment Encounter Details Date Type Department Care Team (Late st Contact Info) Description 10/20/2023 Telephone Hematology/Oncology Treatment, [place] [address] [place] [address] Rosalio Amaral MD [address] [place] [id number] Appointment (Labs/ Treatment) Allergies Active Allergy Reactions Criticality Noted Date Comments Atorvastatin Muscle pain High 03/30/2019 Ezetimibe Muscle pain High 01/25/2020 documented as of this encounter (statuses as of 10/24/2023) Medications Medication Sig Dispensed Refills Start Date [...] goal of less than 7.0% ([facility]) Use as directed daily. Test once daily DxE11.9 100 Strip 5 1 Active LancetsIndications: Type 2 diabetes mellitus with hemoglobin A1c goal of less than 7.0% ([facility]) Test once daily DxE11.9. 100 Each 5 1 Active Albuterol Sulfate HFA 108 (90 Base) MCG/ACT Inhalation Aerosol SolutionIndications :Acute bronchitis, antibiotics not indicated Inhale 2 Puffs by mouth every 6 hours as needed for Cough or Shortness of Breath. 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 180 Tablet 1 3 Active Pen [place] 32G X 4 MM Use as directed. [...] long-term current use of insulin ([facility]) Use as directed to check [...] Information Patient not taking.Reported on 10/04/2023 Nystatin [id number] UNIT/ML Mouth/Throat SuspensionIndicatio ns:Multiple myeloma in relapse ([facility]) Swish and swallow 5 mL in [...] as of this encounter (statuses as of 10/24/2023) Active Problems Problem Noted Date Diagnosed Date [...] remission 06/14/2014 Overview: Dr Rodriges/ [facility] ADVANCE DIRECTIVE INFORMATION 10/13/2006 Overview: No, Advance Directive brochure offered , patient declined. Degeneration of lumbosacral intervertebral disc 02/19/2005 documented as of this encounter (statuses as of 10/24/2023) Resolved Problems Problem Noted Date Diagnosed Date [...] as of this encounter (statuses as of 10/24/2023) Immunizations Name Administration Dates Next Due COVID-19, [...] encounter Miscellaneous Notes * Telephone Encounter - Dariana Tejada OSA - 10/24/2023 4:45 PM EST We received a call from Jerardo asking to reschedule his lab and treatment appointment that was scheduled for tomorrow. He did not realize we are to be having such bad weather. Please give him a call at [phone] to reschedule. Thank you! * Telephone Encounter - Beth Bailey OSA - 10/24/2023 8:28 AM EST Pt is scheduled for tomorrow along with labs Pt is aware and has no questions * Telephone Encounter - Racquel Gallego RN - 10/24/2023 8:01 AM EST Referral entered. Scheduling: please call patient to schedule - labs "CBCd, CMP, LDH, uric" - 3 hour appt "darzalex faspro, cytoxan" (Dr Rosalio Amaral). Anna: LDH is noted to be needed, but there is no lab order for this. Please place lab order if needed * Telephone Encounter - Racquel Gallego RN - 10/20/2023 8:59 AM EST Images from the original note were not included. Anna Daniel RN P [facility] Hem/Onc Nurse Pool/Class; Anna Daniel RN; Rosalio Amaral MD Please schedule patient for chemotherapy/immunotherapy as follows: Darzalex and cytoxan with labs cbcd cmp uric acid ld Physician:Munir Desired Start Date: next week Treatment Medication: alf and cytoxan Length of Treatment: 3 hours Precert Complete: yes Consent: yes New Treatment: no Port: no Labs: cbcd cmp uric acid ld Teach: no Auth 09/24/23. Precert: please obtain new auth for treatment. documented in this encounter Plan of Treatment Upcoming Encounters Date Type Department Care Team (Late st Contact Info) Description 10/25/2023 7:00 AM EST Anticoagulation Pharmacy, [address] [place] [id number] [place] [address] 10/25/2023 8:10 AM EST Laboratory Laboratory Scenery [place] [address] [place] [phone] [place], Lab Scenery [address] [place] [address] 10/25/2023 9:15 AM EST Hem/Onc Treatment Hematology/Oncology Treatment, [place] [address] [place] [address] [place], Chair 1 Hem Onc Scenery [address] [place] [address] 10/25/2023 2:30 PM EST Home Visit [facility] [address] [place] [address] Sulma Seth RN [address] [place] [address] 11/10/2023 9:00 AM EST [facility] [address] [place] [address] Rosalio Amaral MD [address] [place] [address] 12/09/2023 3:30 PM EDT Office Visit [facility] Tyree UGARTE [address] [place] [address] Rosalio Amaral MD [address] [facility] [place] [address] 12/15/2023 8:30 AM EDT Office Visit Cardiology, [facility] [address] [place] [address] Beth Gibbs CRNP [address] [place] [address] 12/29/2023 9:00 AM EDT Office Visit Otolaryngology [facility] [address] [place] [address] Haley Aguero PA-C [address] [place] [address] 03/08/2024 9:00 AM EDT Office Visit Cardiology [address] [place] [address] Tim Ruiz PA-C [address] [place] [address] 10/30/2024 1:45 PM EST Office Visit Urology, [facility] [address] [place] [address] Devyn Paniagua MD [address] [place] [address] [place] [address] Health Maintenance Due Date Last Done Comments HIV Screening 1985 Hepatitis C Screening 01/29/1988 Cologuard 2015 Fecal Occult Blood Test 2015 Sigmoidoscopy 2015 COVID-19 Vaccine (3 - Pfizer risk series) 11/03/2021 10/06/2021, 06/23/2021 Depression Screening 01/05/2022 01/05/2021 Diabetic Foot Exam 12/14/2022 12/14/2021, 0 10/15/2020, 06/25/2019 HbA1c 01/05/2024 07/06/2023, 08/0 11/2022, 03/29/2023, Additional history exists GFR 03/22/2024 09/22/2023, 12/04/2023, 08/22/2023, Additional history exists Pneumococcal Vaccine: Pediatrics (0 to 5 Years) and At-Risk Patients (6 to 64 Years) (3 - PPSV23 or PCV20) 05/22/2024 05/13/2020, 05/22/2019 Diabetic Eye Exam 07/11/2024 07/11/2023, , 07/05/2022, Additional history exists TSH 07/25/2024 07/25/2023, 03/12, 01/31/2023, Additional history exists CKD PHOS USE SMARTSET 16893 08/16/2024 12/0 01/2023, 07/25/2023, 07/06/2023, Additional history exists Albumin/Creatinine Ratio 09/08/2024 023, 06/22/2023, 05/27/2023, Additional history exists CKD HGB USE SMARTSET 83758 09/08/202409/08, 09/08/2023, 08/16/2023, Additional history exists DTaP,Tdap,and [...] this encounter Medical Devices Implanted Type Area [employer]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 Identifier Shelf Expiration Date Model / Serial / Lot Port Power Mri W/8fr Cath - [id number] Implanted:Qty: 1 on 09/26/2020 by Simone Michelle MD at OR [facility] Right: Chest CR BARD : PERIPHERAL VASCULAR 10/12/2021 [id number] / / [id number] Description:right IJ Lens Intraoc 19.0 - [id number] - [id number] Implanted:Qty: 1 on 02/03/2021 by Chris Sexton MD at OR [facility] Right: Eye [employer] 09/11/2025 [id number] / [id number] / Lens Intraoc 19.0 - [id number] - [id number] Implanted:Qty: 1 on 02/24/2021 by Chris Sexton MD at OR [facility] Left: Eye [employer]CH [employer] LOMB 10/12/2025 [id number] / [id number] / [id number] System Urolift - [id number] Implanted:Qty: 3 on 03/17/2023 by Devyn Paniagua MD at OR [facility] N/A: Urethra [employer] 11/03/2023 [id number] / / [id number] documented as of this encounter Additional Health [...] and were consensually agreed upon. Care Teams Software Product Specialist Relationship Specialty Start Date End Date Jaime Garcia MD [address] [place] [address] [place] [phone] PCP - General Family Medicine 10/15/20 documented as of this encounter
--- OUTSIDE RECORDS SUMMARY | 2023-12-07 07:54 | External Medical Summary | Summary of Care ---
Author Name Unknown Organization [facility] Address [address] [place] [address] Phone [phone] Care Team Providers Care Foreign Agent Name Role Phone Jaime Garcia MD Primary Care Provide r Reason for Visit * Reason Onset Date Comments Appointment 10/20/2023 Labs/ Treatment Encounter Details Date Type Department Care Team (Late st Contact Info) Description 10/20/2023 Telephone Hematology/Oncology Treatment, [place] [address] [place] [address] Rosalio Amaral MD [address] [place] [phone] Appointment (Labs/ Treatment) Allergies Active Allergy [...] goal of less than 7.0% ([facility]) Use as directed daily. Test once daily DxE11.9 100 Strip 5 1 Active LancetsIndications: Type 2 diabetes mellitus with hemoglobin A1c goal of less than 7.0% ([facility]) Test once daily DxE11.9. 100 Each 5 1 Active Albuterol Sulfate HFA 108 (90 Base) MCG/ACT Inhalation Aerosol SolutionIndications :Acute bronchitis, antibiotics not indicated Inhale 2 Puffs by mouth every 6 hours as needed for Cough or Shortness of Breath. 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 180 Tablet 1 3 Active Pen [place] 32G X 4 MM Use as directed. [...] long-term current use of insulin ([facility]) Use as directed to check blood [...] Information Patient not taking.Reported on 10/04/2023 Nystatin 362101 UNIT/ML Mouth/Throat SuspensionIndicatio ns:Multiple myeloma in relapse ([facility]) Swish and swallow 5 mL in the [...] encounter Miscellaneous Notes * Telephone Encounter - Bteh Bailey OSA - 10/25/2023 8:17 AM EST Called and rescheduled per pt request * Telephone Encounter - Dariana Tejada OSA - 10/24/2023 4:45 PM EST We received a call from Jerardo asking to reschedule his lab and treatment appointment that was scheduled for tomorrow. He did not realize we are to be having such bad weather. Please give him a call at [phone] to reschedule. Thank you! * Telephone Encounter [...] were not included. Anna Daniel RN P [facility] Hem/Onc Nurse Pool/Class; Anna Daniel RN; Rosalio [...] Description 10/25/2023 2:30 PM EST Home Visit [facility] [address] [place] [address] Sulma Seth RN [address] [place] [address] 10/28/2023 7:50 AM EST Laboratory Laboratory Scenery [facility] [address] [place] [phone] [place], Lab Scenery [address] [place] [address] 10/28/2023 9:00 AM EST Hem/Onc Treatment Hematology/Oncology Treatment, [place] [address] [place], [place] [address] [place], Chair 4 Hem Onc Scenery [address] [place] [address] 11/10/2023 9:00 AM EST [facility] [address] [place] [address] Rosalio Amaral MD [address] [place] [address] 12/09/2023 3:30 PM EDT Office Visit [facility] Tyree Jordan [address] [place] [address] Rosalio Amaral MD [address] [place] [address] 12/15/2023 8:30 AM EDT Office Visit Cardiology, [facility] [address] [place] [address] Beth Gibbs CRNP [address] [place] [address] 12/29/2023 9:00 AM EDT Office Visit Otolaryngology [facility] [address] [place] [address] Haley Aguero PA-C [address] [place] [address] 03/08/2024 9:00 AM EDT Office Visit Cardiology [address] [place] [address] Tim Ruiz PA-C [address] [place] [address] 10/30/2024 1:45 PM EST Office Visit Urology, [facility] [address] [place] [address] Devyn Paniagua MD [address] [place] [address] [place] [address] Health Maintenance Due Date Last Done Comments [...] Additional history exists CKD PHOS USE SMARTSET 09861 08/16/202401/2023, 07/25/2023, 07/06/2023, Additional history exists Albumin/Creatinine Ratio 09/08/2024 023, 06/22/2023, 05/27/2023, Additional history exists CKD HGB USE SMARTSET 82808 09/08/202409/08, 09/08/2023, 08/16/2023, Additional history exists DTaP,Tdap,and [...] this encounter Medical Devices Implanted Type Area Bank Reconciliator Device Identifier Shelf Expiration Date Model / Serial / Lot Port Power Mri W/8fr Cath - [id number] Implanted:Qty: 1 on 09/26/2020 by Simone Michelle MD at OR [facility] Right: Chest CR BARD : PERIPHERAL VASCULAR 10/12/2021 [id number] / / [id number] Description:right IJ Lens Intraoc 19.0 - [id number] - [id number] Implanted:Qty: 1 on 02/03/2021 by Chris Sexton MD at OR [facility] Right: Eye [employer]OM[employer] 09/11/2025 [id number] / [id number] / Lens Intraoc 19.0 - [id number] - [id number] Implanted:Qty: 1 on 02/24/2021 by Chris Sexton MD at OR [facility] Left: Eye [employer]OM[employer] 10/12/2025 [id number] / [id number] / [id number] System Urolift - [id number] Implanted:Qty: 3 on 03/17/2023 by Devyn Paniagua MD at OR [facility] N/A: Urethra [employer] 11/03/2023 [id number] / / [id number] documented as of this encounter Additional Health [...] and were consensually agreed upon. Care Teams Foreign Agent Relationship Specialty Start Date End Date Jaime Garcia MD [address] [place] [address] [place] [phone] PCP - General Family Medicine 10/15/20 documented as of this encounter
--- OUTSIDE RECORDS SUMMARY | 2023-12-07 07:55 | External Medical Summary | Summary of Care ---
Author Name Unknown Organization [facility] Address [address] [place] [address] Phone [phone] Care Team Providers Care Edi Programmer Name Role Phone Eloina Day MD Primary Care Provide r Reason for Visit * Reason Comments Follow Up 6 month retBPH, EDFi nasteride. Encounter Details Date Type Department Care Team (Late st Contact Info) Description 10/24/2023 1:15 PM EST Office Visit Urology, [facility] 132 [facility] [place] [address] Devyn Paniagua MD 27 [facility] [address] [place] [phone] BPH with obstruction/lower urinary tract symptoms* Allergies Active Allergy Reactions Criticality Noted Date [...] chain myeloma ([facility]) Take one tablet once daily 180 [...] achieved remission ([facility]) 5 tabs 2 times monthly 10 [...] Information Patient taking differently: 50 mcg Oral [id number], Reported on 04/14/2023 Warfarin Sodium 2.5 MG Oral Tablet (Coumadin)Indicatio ns:Atrial fibrillation, unspecified type (HCC),Anticoagulati on management encounter,[facility] current use [...] morning. 180 Tablet 1 3 Active Pen Ideal 32G X 4 MM Use as directed. [...] Information Patient not taking.Reported on 10/04/2023 Nystatin [id number] UNIT/ML Mouth/Throat SuspensionIndicatio ns:Multiple myeloma in relapse ([facility]) Swish and swallow 5 mL in [...] Sign Reading Time Taken Comments Blood Pressure - - Pulse - - Temperature 36.2 C (97.2 F) 10/24/2023 1:12 PM ES T Respiratory Rate - - Oxygen Saturation - - Inhaled Oxygen Concentration - - Weight 70 kg (154 lb 4.8 oz) 10/24/2023 1:12 PM EST Height - - Body Mass Index 22.79 10/04/2023 10:42 AM EST documented in this encounter Progress Notes * Devyn Paniagua MD - 10/24/2023 1:09 PM EST [id number] PCP: ELOINA DAY [address] [place] [address] [place] [phone] Jerardo Ochoa Jr. is a 53 year old male, who presents for six-month f/u of his history of BPH and healing after Urolift. History of urgency and urge incontinence are noted. He notes his voiding has much improved, "its all working fine now." HE continues to receive therapy for his myeloma, pending resumption of chemo tomorrow. He remains on finasteride. BPH: Patient is being seen for BPH today. He has had the following symptoms: slow stream and hesitancy. Severity is moderate. He has tried finasteride. He has previously had cystoscopy done February 2023. Syncope with Flomax, never tried Rapaflo, provided summer 2022. Problem has been present since 2021. UroLift done March 2023. Erectile dysfunction: Presented to May 2022. Previous hypotension with sildenafil. PSA Results: Lab Results Component Value Date/Time PSA - [facility] 0.81 11/19/2022 11:12 AM PSA - [facility] 0.35 08/12/2022 09:33 AM Creatinine Results: Lab Results Component Value Date/Time CREATININE - [facility] 1.4 (H) 09/22/2023 09:36 AM CREATININE - [facility] 1.5 (H) 09/08/2023 12:03 PM CREATININE - [facility] 2.0 (H) 08/22/2023 04:22 PM CREATININE - [facility] 1.4 (H) 10/03/2020 07:44 AM CREATININE - [facility] 1.6 (H) 09/19/2020 08:06 AM CREATININE - [facility] 1.7 (H) 08/15/2020 08:49 AM CREATININE, RANDOM URINE - [facility] 126 09/08/2023 12:07 PM CREATININE, RANDOM URINE - [facility] 18 06/22/2023 12:51 PM CREATININE, RANDOM URINE - [facility] 18 06/22/2023 12:51 PM CREATININE, RANDOM URINE - [facility] 322 06/13/2020 07:39 AM CREATININE, RANDOM URINE - [facility] 165 01/25/2020 08:27 AM CREATININE, RANDOM URINE - [facility] 33 06/29/2019 08:55 AM CREATININE-OUTSIDE LAB 1.03 08/16/2023 12:00 AM CREATININE-OUTSIDE LAB 1.42 (A) 09/04/2020 12:00 AM CREATININE-OUTSIDE LAB 1.40 (H) 05/18/2018 09:55 AM CREATININE-OUTSIDE LAB 1.44 (H) 03/28/2018 02:07 PM CREATININE-OUTSIDE LAB 1.49 (H) 02/16/2018 10:24 AM Current Outpatient Medications Medication Sig Dispense Refill [...] MOUTH TWICE A MONTH 10 Tablet 5 Finasteride 5 MG Oral Tablet (Proscar) TAKE [...] in the morning. 180 Tablet 1 Pen Ideal 32G X 4 MM Use as directed. [...] Reported on 10/04/2023) 100 Tablet 3 Nystatin 664365 UNIT/ML Mouth/Throat Suspension Swish and swallow 5 [...] mouth in the morning. 30 Tablet 4 No current facility-administered medications for this visit. Review of patient's allergies indicates: Allergen Reactions Atorvastatin Muscle pain Zetia [Ezetimibe] Muscle pain Social History: Social History Tobacco Use Smoking status: Never Smokeless tobacco: Current Types: Chew Tobacco comments: one pouch or a little less daily for 17 years Substance Use Topics Alcohol use: Yes Comment: rarely Vaping/E-Cigarette Use Vaping/E-Cigarette Use Never User Vaping/E-Cigarette Substances Vaping/E-Cigarette Devices No family history on file. Past Surgical History: Procedure Laterality Date CENTRAL LINE PLACEMENT-FLUORO ([facility]) 09/26/2020 CENTRAL LINE PLACEMENT-FLUORO performed by Simone Michelle MD at OR [facility] COLONOSCOPY, DIAGNOSTIC (RECTUM) 09/09/2021 normal bx / COLONOSCOPY FLEXIBLE PROXIMAL DIAGNOSTIC performed by Philip Graham MD at ENDOSCOPY [facility] CYSTOURETHROSCOPY, W/ TRANSPROSTATIC IMPLANT N/A 03/17/2023 CYSTOURETHROSCOPY, WITH INSERTION OF PERMANENT ADJUSTABLE TRANSPROSTATI IMPLANT; SINGLE IMPLANT performed by Devyn Paniagua MD at OR [facility] EGD, FLEXIBLE, DIAGNOSTIC 10/15/2019 normal bx / ESOPHAGOGASTRODUODENOSCOPY (EGD), FLEXIBLE, TRANSORAL, DIAGNOSTIC performed by Mellissa Mari MD at ENDOSCOPY [facility] EGD, FLEXIBLE, DIAGNOSTIC N/A 05/06/2023 esophageal plaques, biopsies confirm rebeca/EGD/MN EGD, W/ENDOSCOPIC US N/A 05/06/2023 multiple cystic lesion pancreatic head and body/EUS/MN INFORMATION vasectomy reversal INFORMATION status post autologous stem cell transplantation in 2014 - per cardiology note INSER TUNN ACC DEV;5 YRS/OLDER N/A 09/26/2020 INSERT TUNNELED CENTRAL VENOUS ACCESS WITH SUBQ PORT performed by Simone Michelle MD at OR [facility] MRI L SPINE W WO CONTRAST [place], was told he had a herniated disc REMOVE CATARACT, INSERT LENS PROSTH Right 02/03/2021 RIGHT EXTRACAPSULAR CATARACT REMOVAL WITH INTRAOCULAR LENS performed by Chris Sexton MD at OR [facility] REMOVE CATARACT, INSERT LENS PROSTH Left 02/24/2021 LEFT EXTRACAPSULAR CATARACT REMOVAL WITH INTRAOCULAR LENS performed by Chris Sexton MD at OR [facility] VASECTOMY 1999 Past Medical History: Diagnosis Date A-fib (HCC) [...] sleep apnea Orthostatic hypotension Tobacco use disorder Patient Active Problem List Diagnosis Code Degeneration of lumbosacral intervertebral disc M51.37 ADVANCE DIRECTIVE INFORMATION Multiple myeloma without remission ([facility]) C90.00 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 PAF (paroxysmal atrial fibrillation) ([facility]) I48.0 Anxiety F41.9 Type 2 diabetes mellitus with hemoglobin A1c goal of less than 7.0% ([facility]) E11.9 Hypogammaglobulinemia ([facility]) D80.1 Lambda light chain myeloma ([facility]) C90.00 AL amyloidosis ([facility]) E85.81 DEBBY (obstructive sleep apnea) G47.33 Statin intolerance Z78.9 Peripheral neuropathic pain M79.2 Current chronic use of systemic steroids Z79.52 Hyperlipidemia with target LDL less than 70 E78.5 Coronary artery disease, non-occlusive I25.10 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, 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 Immunosuppressed status ([facility]) D84.9 Chronic kidney disease, stage 3b ([facility]) N18.32 Type 2 diabetes mellitus with stage 3b chronic kidney disease ([facility]) E11.22, N18.32 Congenitally solitary right kidney Q60.0 BPH with obstruction/lower urinary tract symptoms N40.1, N13.8 Chronic heart failure with preserved ejection fraction ([facility]) I50.32 Chemotherapy-induced neuropathy ([facility]) G62.0, T45.1X5A Constitutional: (+) weakness Male : see HPI Musculoskeletal: (+) muscle weakness Neurology: (+) loss of balance Psychiatry: (+) depression Eyes: (+) corrective lenses ENT: (-) stridor Physical Exam Nursing note reviewed. Constitutional: General: He is not in acute distress. Appearance: He is not ill-appearing or toxic-appearing. Comments: Using cane HENT: Head: Normocephalic. Right Ear: External ear normal. Left Ear: External ear normal. Nose: Nose normal. Mouth/Throat: Mouth: Mucous membranes are moist. Eyes: Extraocular Movements: Extraocular movements intact. Cardiovascular: Pulses: Normal pulses. Pulmonary: Effort: Pulmonary effort is normal. No respiratory distress. Abdominal: General: There is no distension. Palpations: Abdomen is soft. Musculoskeletal: Cervical back: No rigidity. Skin: Coloration: Skin is not pale. Neurological: Motor: Weakness present. Gait: Gait abnormal. Psychiatric: Behavior: Behavior normal. Thought Content: Thought content normal. Impression/Plan: 53 yo male with improved LUTS. Patient is satisfied with his voiding. Will move out to yearly visits. Contact us sooner with any other difficulties. Will refill finasteride in April when due. Above content is personally reviewed.Patient vocalizes good understanding of the treatment plan. Devyn Paniagua MD 1:09 PM 10/24/2023 documented in this encounter Nursing Notes * Rene Gonsalves MED ASSIST - 10/24/2023 1:13 PM EST Chief Complaint Patient presents with Follow Up 6 month ret BPH, ED Finasteride. Verified patient. documented in this encounter Plan of Treatment Upcoming Encounters Date Type Department Care Team (Late st Contact Info) Description 10/24/2023 2:00 PM EST Laboratory [facility], [facility] [phone] [facility] [address] [address] Arrived 10/25/2023 7:00 AM EST Anticoagulation Pharmacy, [address] [place] [address] [place] [address] 10/25/2023 8:10 AM EST Laboratory Laboratory Scenery [place] [address] [place] [phone] [place], Lab Scenery [address] [place] [address] 10/25/2023 9:15 AM EST Hem/Onc Treatment Hematology/Oncology Treatment, [place] [address] [place] [address] [place], Chair 1 Hem Onc Scenery [address] [place] [address] 10/25/2023 2:30 PM EST Home Visit [facility] [address] [place] [address] Sulma Seth, RN [address] [place] [address] 11/10/2023 9:00 AM EST [facility] [address] [place] [address] Rosalio Amaral MD [address] [facility] [place] [address] 12/09/2023 3:30 PM EDT Office [facility] [address] [place] [address] Rosalio Amaral MD [address] [place] [address] 12/15/2023 8:30 AM EDT Office Visit Cardiology, [facility] [address] [place] [address] Beth Gibbs CRNP [address] [place] [address] 12/29/2023 9:00 AM EDT Office Visit Otolaryngology [facility] [address] [place] [address] Haley Aguero PA-C [address] [place] [address] 03/08/2024 9:00 AM EDT Office Visit Cardiology [address] [place] [address] Tim Ruiz PA-C [address] [place] [address] 10/30/2024 1:45 PM EST Office Visit Urology, [facility] [address] [place] [address] Devyn Paniagua MD [address] [place] [address] [place] [address] Health Maintenance Due Date Last Done Comments [...] Additional history exists CKD PHOS USE SMARTSET 35405 08/16/2024 12/0 01/2023, 07/25/2023, 07/06/2023, Additional history exists Albumin/Creatinine Ratio 09/08/202409/08/ 023, 06/22/2023, 05/27/2023, Additional history exists CKD HGB USE SMARTSET 52398 09/08/202409/083, 09/08/2023, 08/16/2023, Additional history exists DTaP,Tdap,and Td [...] this encounter Medical Devices Implanted Type Area Peoplesoft Hrms Developer Device Identifier Shelf Expiration Date Model / Serial / Lot Port Power Mri W/8fr Cath - [id number] Implanted:Qty: 1 on 09/26/2020 by Simone Michelle MD at OR [facility] Right: Chest CR BARD : PERIPHERAL VASCULAR 10/12/2021 [id number] / / [id number] Description:right IJ Lens Intraoc 19.0 - [id number] - [id number] Implanted:Qty: 1 on 02/03/2021 by Chris Sexton MD at OR [facility] Right: Eye BAUSCH & LOMB 09/11/2025 [id number] / [id number] / Lens Intraoc 19.0 - [id number] - [id number] Implanted:Qty: 1 on 02/24/2021 by Chris Sexton MD at OR [facility] Left: Eye BAUSCH & LOMB 10/12/2025 [id number] / [id number] / [id number] System Urolift - [id number] Implanted:Qty: 3 on 03/17/2023 by Devyn Paniagua MD at OR [facility] N/A: Urethra [employer] 11/03/2023 [id number] / / [id number] documented as of this encounter Visit Diagnoses Diagnosis BPH with obstruction/lower urinary tract symptoms- Primary Hypertrophy of prostate with urinary obstruction and other lower urinary tract symptoms (LUTS) documented in this encounter Additional Health Concerns [...] and were consensually agreed upon. Care Teams Edi Programmer Relationship Specialty Start Date End Date Eloina Day MD [address] [place] [address] [place] [phone] PCP - General Family Medicine 10/15/20 documented as of this encounter
--- OUTSIDE RECORDS SUMMARY | 2023-12-07 07:55 | External Medical Summary | Summary of Care ---
Author Name Unknown Organization [facility] Address [address] [place] [address] Phone [phone] Care Team Providers Care Cost Accountant Name Role Phone Jaime Garcia MD Primary Care Provide r Reason for Visit * Reason Comments Outpatient Testing Encounter Details Date Type Department Care Team (Late st Contact Info) Description 10/24/2023 2:00 PM EST Laboratory Laboratory, [facility] 132 [facility] [place] [phone] [facility] 132 [facility] [place] [phone] Arrived Allergies Active Allergy Reactions Criticality Noted [...] (Zovirax)Indication s:Lambda light chain myeloma ([facility]) Take one tablet once daily 180 [...] myeloma not having achieved remission ([facility]) 5 tabs 2 times monthly 10 [...] Information Patient taking differently: 50 mcg Oral [id number], Reported on 04/14/2023 Warfarin Sodium 2.5 MG Oral Tablet (Coumadin)Indicatio ns:Atrial fibrillation, unspecified type (HCC),Anticoagulati on management encounter,adjunct faculty for medical terminology current [...] morning. 180 Tablet 1 3 Active Pen Lawrence 32G X 4 MM Use as directed. [...] Information Patient not taking.Reported on 10/04/2023 Nystatin 619621 UNIT/ML Mouth/Throat SuspensionIndicatio ns:Multiple myeloma in relapse ([facility]) Swish and swallow 5 mL in [...] Description 10/25/2023 7:00 AM EST Anticoagulation Pharmacy, [address] [place] [address] [place] [address] 10/25/2023 8:10 AM EST Laboratory Laboratory Scenery [place] [address] [place] [phone] [place], Lab Scenery [address] [place] [address] 10/25/2023 9:15 AM EST Hem/Onc Treatment Hematology/Oncology Treatment, [place] [address] [place] [address] [place], Chair 1 Hem Onc Scenery [address] [place] [address] 10/25/2023 2:30 PM EST Home Visit [facility] [address] [place] [address] Sulma Seth RN [address] [place] [address] 11/10/2023 9:00 AM EST Office Visit [facility] [place] [address] [place] [address] Rosalio Amaral MD [address] [place] [address] 12/09/2023 3:30 PM EDT Office Visit Hematology [facility] Tyree UGARTE [address] [place] [address] Rosalio Amaral MD [address] [place] [address] 12/15/2023 8:30 AM EDT Office Visit Cardiology, [facility] [address] [place] [address] Beth Gibbs CRNP [address] [place] [address] 12/29/2023 9:00 AM EDT Office Visit Otolaryngology [facility] [address] [place] [address] Haley Aguero PA-C [address] [place] [address] 03/08/2024 9:00 AM EDT Office Visit Cardiology [address] [place] [address] Tmi Ruiz PA-C [address] [place] [address] 10/30/2024 1:45 PM EST Office Visit Urology, [facility] [address] [place] [address] Devyn Paniagua MD [address] [facility] [address] [place] [address] Health [...] Additional history exists CKD PHOS USE SMARTSET 39366 08/16/202401/2023, 07/25/2023, 07/06/2023, Additional history exists Albumin/Creatinine Ratio 09/08/2024 023, 06/22/2023, 05/27/2023, Additional history exists CKD HGB USE SMARTSET 04892 09/08/202409/08, 09/08/2023, 08/16/2023, Additional history exists DTaP,Tdap,and [...] this encounter Medical Devices Implanted Type Area Sound Mixer Device Identifier Shelf Expiration Date Model / Serial / Lot Port Power Mri W/8fr Cath - [id number] Implanted:Qty: 1 on 09/26/2020 by Simone Michelle MD at OR [facility] Right: Chest CR BARD : PERIPHERAL VASCULAR 10/12/2021 [id number] / / [id number] Description:right IJ Lens Intraoc 19.0 - [id number] - [id number] Implanted:Qty: 1 on 02/03/2021 by Chris Sexton MD at OR [facility] Right: Eye BAUSCH [employer] LOMB 09/11/2025 [id number] / [id number] / Lens Intraoc 19.0 - [id number] - [id number] Implanted:Qty: 1 on 02/24/2021 by Chris Sexton MD at OR [facility] Left: Eye BAUSCH & LOMB 10/12/2025 [id number] / [id number] / [id number] System Urolift - [id number] Implanted:Qty: 3 on 03/17/2023 by Devyn Paniagua MD at OR [facility] N/A: Urethra [employer] 11/03/2023 [id number] / / [id number] documented as of this encounter Additional Health [...] and were consensually agreed upon. Care Teams Cost Accountant Relationship Specialty Start Date End Date Jaime Garcia MD [address] [place] [address] [place] [phone] PCP - General Family Medicine 10/15/20 documented as of this encounter
--- OUTSIDE RECORDS SUMMARY | 2023-12-07 07:55 | External Medical Summary | Summary of Care ---
Author Name Unknown Organization [facility] Address [address] [place] [address] Phone [phone] Care Team Providers Care Clinical Program Coordinator Name Role Phone Jaime Garcia MD Primary Care Provide r Reason for Visit * Reason Onset Date Comments Appointment 10/20/2023 Encounter Details Date Type Department Care Team (Late st Contact Info) Description 10/20/2023 Telephone Hematology/Oncology Treatment, [place] [address] [place] [address] Rosalio Amaral MD [address] [place] [address] Appointment Allergies Active Allergy Reactions Criticality Noted Date [...] (Zovirax)Indication s:Lambda light chain myeloma ([facility]) Take one tablet once daily [...] myeloma not having achieved remission ([facility]) 5 tabs 2 times monthly [...] Information Patient taking differently: 50 mcg Oral [id number], Reported on 04/14/2023 Warfarin Sodium 2.5 MG [...] morning. 180 Tablet 1 3 Active Pen Blanchard 32G X 4 MM Use as directed. [...] disease, without long-term current use of insulin ([facility]) Use as directed to check [...] Information Patient not taking.Reported on 10/04/2023 Nystatin 189049 UNIT/ML Mouth/Throat SuspensionIndicatio ns:Multiple myeloma in relapse ([facility]) Swish and swallow 5 mL [...] Miscellaneous Notes * Telephone Encounter - Racquel Gallego RN [...] were not included. Anna Daniel RN P Carla Renae Hem/Onc Nurse Pool/Class; Anna Daniel RN; Rosalio [...] 10/24/2023 1:15 PM EST Office Visit Urology, [facility] 132 [facility] [place] [address] Devyn Paniagua MD 27 [facility] [address] [place] [address] 10/24/2023 2:00 PM EST Laboratory Laboratory, [facility] 132 [facility] [place] [phone] [facility] [address] 10/25/2023 7:00 AM EST Anticoagulation Pharmacy, [address] [place] [address] [place] [address] 10/25/2023 2:30 PM EST Home Visit [facility] 132 [facility] [place] [address] Sulma Seth RN [address] [place] [address] 11/10/2023 9:00 AM EST Office Visit [facility]ology [facility] [place]ree [place] [address] [place] [address] Rosalio Amaral MD [address] [place] [address] 12/09/2023 3:30 PM EDT Office Visit [facility]ology [facility] [place] [address] [place] [address] Rosalio Amaral MD [address] [place] [address] 12/15/2023 8:30 AM EDT Office Visit Cardiology, [facility] [address] [place] [address] Beth Gibbs CRNP [address] [place] [address] 12/29/2023 9:00 AM EDT Office Visit Otolaryngology [facility] [address] [place] [address] Haley Aguero PA-C [address] [place] [address] 03/08/2024 9:00 AM EDT Office Visit Cardiology [address] [place] [address] Tim Ruiz PA-C [address] [place] [address] Health Maintenance Due Date Last Done Comments [...] Additional history exists CKD PHOS USE SMARTSET 71948 08/16/2024 12/0 01/2023, 07/25/2023, 07/06/2023, Additional history exists Albumin/Creatinine Ratio 09/08/2024 023, 06/22/2023, 05/27/2023, Additional history exists CKD HGB USE SMARTSET 00565 09/08/202409/08, 09/08/2023, 08/16/2023, Additional history exists DTaP,Tdap,and [...] this encounter Medical Devices Implanted Type Area Extras Casting Director Device Identifier Shelf Expiration Date Model / Serial / Lot Port Power Mri W/8fr Cath - [id number] Implanted:Qty: 1 on 09/26/2020 by Simone Michelle MD at OR [facility] Right: Chest CR BARD : PERIPHERAL VASCULAR 10/12/2021 [id number] / / [id number] Description:right IJ Lens Intraoc 19.0 - [id number] - [id number] Implanted:Qty: 1 on 02/03/2021 by Chris Sexton MD at OR [facility] Right: Eye BAUSCH & LOMB 09/11/2025 [id number] / [id number] / Lens Intraoc 19.0 - [id number] - [id number] Implanted:Qty: 1 on 02/24/2021 by Chris Sexton MD at OR [facility] Left: Eye BAUSCH & LOMB 10/12/2025 [id number] / [id number] System Urolift - [id number] Implanted:Qty: 3 on 03/17/2023 by Devyn Paniagua MD at OR [facility] N/A: Urethra [employer] 11/03/2023 [id number] / / [id number] documented as of this encounter Additional Health [...] and were consensually agreed upon. Care Teams Clinical Program Coordinator Relationship Specialty Start Date End Date Jaime Garcia MD [address] [place] [address] [place] [phone] PCP - General Family Medicine 10/15/20 documented as of this encounter
--- OUTSIDE RECORDS SUMMARY | 2023-12-07 07:55 | External Medical Summary | Summary of Care ---
Author Name Unknown Organization [facility] Address [address] [place] [address] Phone [phone] Care Team Providers Care Car Salesperson Name Role Phone Jaime Garcia MD Primary Care Provide r Reason for Visit * Reason Onset Date Comments Appointment 10/20/2023 Encounter Details Date Type Department Care Team (Late st Contact Info) Description 10/20/2023 Telephone Hematology/Oncology Treatment, [place] [address] [place] [address] Rosalio Amaral MD [address] [place] [address] Appointment Allergies Active Allergy Reactions Criticality Noted Date Comments Atorvastatin Muscle pain High 03/30/2019 Ezetimibe Muscle pain High 01/25/2020 documented as of this encounter (statuses as of 10/21/2023) Medications Medication Sig Dispensed Refills Start Date [...] hemoglobin A1c goal of less than 7.0% ([facility]) Test once daily DxE11.9. 100 Each 5 1 Active Albuterol Sulfate HFA 108 (90 Base) MCG/ACT Inhalation Aerosol SolutionIndications :Acute bronchitis, antibiotics not indicated Inhale 2 Puffs by mouth every 6 hours as needed for Cough or Shortness of Breath. 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 180 Tablet 1 3 Active Pen [place] 32G X 4 MM Use as directed. [...] disease, without long-term current use of insulin ([facility]) Use as directed to check [...] Information Patient not taking.Reported on 10/04/2023 Nystatin 306120 UNIT/ML Mouth/Throat SuspensionIndicatio ns:Multiple myeloma in relapse ([facility]) Swish and swallow 5 mL [...] as of this encounter (statuses as of 10/21/2023) Active Problems Problem Noted Date Diagnosed Date [...] as of this encounter (statuses as of 10/21/2023) Resolved Problems Problem Noted Date Diagnosed Date [...] as of this encounter (statuses as of 10/21/2023) Immunizations Name Administration Dates Next Due COVID-19, [...] were not included. Anna Daniel RN P [facility] Hem/Onc Nurse Pool/Class; Anna Daniel [...] 10/24/2023 1:15 PM EST Office Visit Urology, [facility] 132 [facility] [place] [address] Devyn Paniagua MD 27 [facility] [place] [address] [place] [address] 10/24/2023 2:00 PM EST Laboratory Laboratory, [facility] [address] [facility] [place] [phone] [facility] [address] [facility] [place] [address] 10/25/2023 7:00 AM EST Anticoagulation Pharmacy, [address] [place] [address] [place] [address] 10/25/2023 2:30 PM EST Home Visit [facility] 132 [facility] [place] [address] Sulma Seth RN 132 [facility] [place] [address] 11/10/2023 9:00 AM EST Office Visit [facility] Tyree UGARTE [address] [facility] [place] [address] Rosalio Amaral MD [address] [facility] [place] [address] 12/09/2023 3:30 PM EDT Office Visit [facility] Tyree UGARTE [address] [facility] [place] [address] Rosalio Amaral MD [address] [facility] [place] [address] 12/15/2023 8:30 AM EDT Office Visit Cardiology, [facility] [address] [place] [address] Beth Gibbs CRNP [address] [place] [address] 12/29/2023 9:00 AM EDT Office Visit Otolaryngology [facility] [address] [place] [address] Haley Aguero PA-C [address] [place] [address] 03/08/2024 9:00 AM EDT Office Visit Cardiology [address] [place] [address] Tim Ruiz PA-C [address] [place] [address] Health Maintenance Due Date Last Done Comments [...] Additional history exists CKD PHOS USE SMARTSET 19953 08/16/2024 1201/2023, 07/25/2023, 07/06/2023, Additional history exists Albumin/Creatinine Ratio 09/08/2024 023, 06/22/2023, 05/27/2023, Additional history exists CKD HGB USE SMARTSET 42896 09/08/202409/08, 09/08/2023, 08/16/2023, Additional history exists DTaP,Tdap,and [...] this encounter Medical Devices Implanted Type Area Artificial Intelligence Specialist Device Identifier Shelf Expiration Date Model / Serial / Lot Port Power Mri W/8fr Cath - [id number] Implanted:Qty: 1 on 09/26/2020 by Simone Michelle MD at OR [facility] Right: Chest CR BARD : PERIPHERAL VASCULAR 10/12/2021 [id number] / / [id number] Description:right IJ Lens Intraoc 19.0 - [id number] - [id number] Implanted:Qty: 1 on 02/03/2021 by Chris Sexton MD at OR [facility] Right: Eye BAUSCH [employer] LOMB 09/11/2025 [id number] / [id number] / Lens Intraoc 19.0 - [id number] - [id number] Implanted:Qty: 1 on 02/24/2021 by Chris Sexton MD at OR [facility] Left: Eye BAUSCH & LOMB 10/12/2025 [id number] / [id number] / [id number] System Urolift - [id number] Implanted:Qty: 3 on 03/17/2023 by Devyn Paniagua MD at OR [facility] N/A: Urethra [employer] 11/03/2023 [id number] / / [id number] documented as of this encounter Additional Health [...] and were consensually agreed upon. Care Teams Car Salesperson Relationship Specialty Start Date End Date Jaime Garcia MD [address] [place] [address] [place] [phone] PCP - General Family Medicine 10/15/20 documented as of this encounter
--- OUTSIDE RECORDS SUMMARY | 2023-12-07 07:55 | External Medical Summary | Summary of Care ---
Author Name Unknown Organization [facility] Address [address] [place] [address] Phone [phone] Care Team Providers Care Multiple Coil Winder Name Role Phone Jaime Garcia MD Primary Care Provide r Reason for Visit * Reason Onset Date Comments Appointment 10/20/2023 Encounter Details Date Type Department Care Team (Late st Contact Info) Description 10/20/2023 Telephone Hematology/Oncology Treatment, [place] [address] [place] [address] Rosalio Amaral MD [address] [place] [address] Appointment Allergies Active Allergy Reactions Criticality Noted [...] Oral Tablet (Zovirax)Indication s:Lambda light chain myeloma ([facility]) Take one tablet once daily [...] (Decadron)Indicatio ns:Multiple myeloma not having achieved remission ([facility]) 5 tabs 2 times monthly 10 [...] Information Patient taking differently: 50 mcg Oral [id number], Reported on 04/14/2023 Warfarin Sodium 2.5 MG Oral Tablet (Coumadin)Indicatio ns:Atrial fibrillation, unspecified type (HCC),Anticoagulati on management encounter,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 180 Tablet 1 3 Active Pen [place] 32G X 4 MM Use as directed. [...] Information Patient not taking.Reported on 10/04/2023 Nystatin 219453 UNIT/ML Mouth/Throat SuspensionIndicatio ns:Multiple myeloma in relapse ([facility]) Swish [...] without remission 06/14/2014 Overview: Dr Rodriges/ [facility] ADVANCE DIRECTIVE INFORMATION 10/13/2006 Overview: [...] encounter Miscellaneous Notes * Telephone Encounter - Beth Bailey OSA [...] not included. Anna Daniel RN P [facility] Hem/Onc Nurse Pool/Class; Anna Daniel [...] 10/24/2023 1:15 PM EST Office Visit Urology, [facility] 132 [facility] [place] [address] Devyn Paniagua MD [address] [place] [address] [place] [address] 10/24/2023 2:00 PM EST Laboratory Laboratory, [facility] 132 [facility] [place] [phone] Nate Ross [address] [facility] [place] [address] 10/25/2023 7:00 AM EST Anticoagulation Pharmacy, [address] [place] [address] [place] [address] 10/25/2023 8:10 AM EST Laboratory Laboratory [address] [place] [address] [place] [phone] [place], Lab Scenery [address] [facility] [place] [address] 10/25/2023 9:15 AM EST Hem/Onc Treatment Hematology/Oncology Treatment, [place] [address] [place] [address] [place], Chair 1 Hem Onc Scenery [address] [place] [address] 10/25/2023 2:30 PM EST [facility] Visit [facility] [place] [address] Sulma Seth RN 132 [facility] [place] [address] 11/10/2023 9:00 AM EST Office Visit [facility] [address] [facility] [place] [address] Rosalio Amaral MD [address] [facility] [place] [address] 12/09/2023 3:30 PM EDT Office Visit [facility] Tyree UGARTE [address] [place] [address] Rosalio Amaral MD [address] [place] [address] 12/15/2023 8:30 AM EDT Office Visit Cardiology, [facility] [place] [address] Beth Gibbs CRNP [address] [place] [address] 12/29/2023 9:00 AM EDT Office Visit Otolaryngology [facility] [address] [place] [address] Haley Aguero PA-C [address] [place] [address] 03/08/2024 9:00 AM EDT Office Visit Cardiology [address] [place] [address] Tim Ruiz PA-C [address] [place] [address] Health Maintenance Due Date Last Done Comments [...] Additional history exists CKD PHOS USE SMARTSET 25328 08/16/2024 12/0 01/2023, 07/25/2023, 07/06/2023, Additional history exists Albumin/Creatinine Ratio 09/08/2024 023, 06/22/2023, 05/27/2023, Additional history exists CKD HGB USE SMARTSET 19938 09/08/202409/08, 09/08/2023, 08/16/2023, Additional history exists DTaP,Tdap,and [...] this encounter Medical Devices Implanted Type Area Buckle Frame Shaper Device Identifier Shelf Expiration Date Model / Serial / Lot Port Power Mri W/8fr Cath - [id number] Implanted:Qty: 1 on 09/26/2020 by Simone Michelle MD at OR [facility] Right: Chest CR BARD : PERIPHERAL VASCULAR 10/12/2021 [id number] / / [id number] Description:right IJ Lens Intraoc 19.0 - [id number] - [id number] Implanted:Qty: 1 on 02/03/2021 by Chris Sexton MD at OR [facility] Right: Eye [employer]USCH [employer] LOMB 09/11/2025 [id number] / [id number] / Lens Intraoc 19.0 - [id number] - [id number] Implanted:Qty: 1 on 02/24/2021 by Chris Sexton MD at OR [facility] Left: Eye BAUSCH & LOMB 10/12/2025 [id number] / [id number] / [id number] System Urolift - [id number] Implanted:Qty: 3 on 03/17/2023 by Devyn Paniagua MD at OR [facility] N/A: Urethra [employer] 11/03/2023 SF001-9 / / [id number] documented as of this encounter Additional Health [...] and were consensually agreed upon. Care Teams Multiple Coil Winder Relationship Specialty Start Date End Date Jaime Garcia MD [address] [place] [address] [place] [phone] PCP - General Family Medicine 10/15/20 documented as of this encounter
--- OUTSIDE RECORDS SUMMARY | 2023-12-07 07:56 | External Medical Summary | Summary of Care ---
Author Name Unknown Organization [facility] Address [address] [place] [address] Phone [phone] Care Team Providers Care Chemical Packager Name Role Phone Jaime Garcia MD Primary Care Provide r Reason for Visit * Reason Onset Date Comments Appointment 10/20/2023 Encounter Details Date Type Department Care Team (Late st Contact Info) Description 10/20/2023 Telephone Hematology/Oncology Treatment, [place] [address] [place] [address] Rosalio Amaral MD [address] [place] [address] Appointment Allergies Active Allergy Reactions Criticality Noted Date Comments Atorvastatin Muscle pain High 03/30/2019 Ezetimibe Muscle pain High 01/25/2020 documented as of this encounter (statuses as of 10/20/2023) Medications Medication Sig Dispensed Refills Start Date [...] of less than 7.0% ([facility]) Test once daily DxE11.9. 100 Each 5 1 Active Albuterol Sulfate HFA 108 (90 Base) MCG/ACT Inhalation Aerosol SolutionIndications :Acute bronchitis, antibiotics not indicated Inhale 2 Puffs by mouth every 6 hours as needed for Cough or Shortness of Breath. 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 180 Tablet 1 3 Active Pen [place] 32G X 4 MM Use as directed. [...] current use of insulin ([facility]) Use as directed to check blood sugars [...] Information Patient not taking.Reported on 10/04/2023 Nystatin 095365 UNIT/ML Mouth/Throat SuspensionIndicatio ns:Multiple myeloma in relapse ([facility]) Swish and swallow 5 mL in the [...] as of this encounter (statuses as of 10/20/2023) Active Problems Problem Noted Date Diagnosed Date [...] without remission 06/14/2014 Overview: Dr Rodriges/ [facility] ADVANCE DIRECTIVE INFORMATION 10/13/2006 Overview: No, Advance Directive brochure offered , patient declined. Degeneration of lumbosacral intervertebral disc 02/19/2005 documented as of this encounter (statuses as of 10/20/2023) Resolved Problems Problem Noted Date Diagnosed Date [...] as of this encounter (statuses as of 10/20/2023) Immunizations Name Administration Dates Next Due COVID-19, [...] were not included. Anna Daniel RN P [facility] Hem/Onc Nurse Pool/Class; Anna Daniel [...] 10/24/2023 1:15 PM EST Office Visit Urology, [facility] 132 [facility] [place] [address] Devyn Paniagua MD 27 [facility] [place] [address] [place] [address] 10/24/2023 2:00 PM EST Laboratory Laboratory, [facility] 132 [facility] [place] [phone] [facility] 132 [facility] [place] [address] 10/25/2023 7:00 AM EST Anticoagulation Pharmacy, [address] [place] [address] [place] [address] 10/25/2023 2:30 PM EST Home Visit [facility] 132 [facility] [place] [address] Sulma Seth RN 132 [facility] [place] [address] 11/10/2023 9:00 AM EST Office Visit [facility] Tyree UGARTE [address] [facility] [place] [address] Rosalio Amaral MD [address] [facility] [place] [address] 12/09/2023 3:30 PM EDT Office Visit [facility] Tyree UGARTE [address] [facility] [place] [address] Rosalio Amaral MD [address] [facility] [place] [address] 12/15/2023 8:30 AM EDT Office Visit Cardiology, [facility] [address] [place] [address] Beth Gibbs CRNP [address] [place] [address] 12/29/2023 9:00 AM EDT Office Visit Otolaryngology [facility] [address] [place] [address] Haley Aguero PA-C [address] [place] [address] 03/08/2024 9:00 AM EDT Office Visit Cardiology [address] [place] [address] Tim Ruiz PA-C [address] [place] [address] Health Maintenance Due Date Last Done Comments [...] Additional history exists CKD PHOS USE SMARTSET 68968 08/16/2024 1201/2023, 07/25/2023, 07/06/2023, Additional history exists Albumin/Creatinine Ratio 09/08/2024 023, 06/22/2023, 05/27/2023, Additional history exists CKD HGB USE SMARTSET 53142 09/08/202409/08, 09/08/2023, 08/16/2023, Additional history exists DTaP,Tdap,and [...] this encounter Medical Devices Implanted Type Area Billing Assistant Device Identifier Shelf Expiration Date Model / Serial / Lot Port Power Mri W/8fr Cath - [id number] Implanted:Qty: 1 on 09/26/2020 by Simone Michelle MD at OR [facility] Right: Chest CR BARD : PERIPHERAL VASCULAR 10/12/2021 [id number] / / [id number] Description:right IJ Lens Intraoc 19.0 - [id number] - [id number] Implanted:Qty: 1 on 02/03/2021 by Chris Sexton MD at OR [facility] Right: Eye BAUSCH [employer] LOMB 09/11/2025 [id number] / [id number] / Lens Intraoc 19.0 - [id number] - [id number] Implanted:Qty: 1 on 02/24/2021 by Chris Sexton MD at OR [facility] Left: Eye BAUSCH & LOMB 10/12/2025 [id number] / [id number] / [id number] System Urolift - [id number] Implanted:Qty: 3 on 03/17/2023 by Devyn Paniagua MD at OR [facility] N/A: Urethra [employer] 11/03/2023 ZE842-3 / / [id number] documented as of this encounter Additional Health [...] and were consensually agreed upon. Care Teams Chemical Packager Relationship Specialty Start Date End Date Jaime Garcia MD [address] [place] [address] [place] [phone] PCP - General Family Medicine 10/15/20 documented as of this encounter
--- OUTSIDE RECORDS SUMMARY | 2023-12-07 07:56 | External Medical Summary | Summary of Care ---
Author Name Unknown Organization [facility] Address [address] [place] [address] Phone [phone] Care Team Providers Care Wood Molder Name Role Phone Jaime Garcia MD Primary Care Provide r Encounter Details Date Type Department Care Team (Late st Contact Info) Description 10/20/2023 Orders Only [facility] [place] [address] Anna Daniel RN Allergies Active Allergy Reactions Criticality Noted Date [...] Information Patient taking differently: 50 mcg Oral [id number], Reported on 04/14/2023 Warfarin Sodium 2.5 MG Oral Tablet (Coumadin)Indicatio ns:Atrial fibrillation, unspecified type ([facility]),Anticoagulati on management encounter,detention current use of anticoagulant therapy,Paroxysmal [...] MG Oral TabletIndications:M ultiple myeloma in relapse ([facility]) TAKE ONE TABLET BY MOUTH EVERY DAY [...] morning. 180 Tablet 1 3 Active Pen [place] 32G X 4 MM Use as directed. [...] Information Patient not taking.Reported on 10/04/2023 Nystatin 430756 UNIT/ML Mouth/Throat SuspensionIndicatio ns:Multiple myeloma in relapse [...] myeloma without remission 06/14/2014 Overview: Dr Rodriges/ [facility] ADVANCE DIRECTIVE INFORMATION 10/13/2006 Overview: [...] 10/24/2023 1:15 PM EST Office Visit Urology, [facility] 132 [facility] [place] [address] Devyn Paniagua MD [address] [place] [address] [place] [address] 10/24/2023 2:00 PM EST Laboratory Laboratory, [facility] [address] [place] [phone] Nate Ross [facility] 132 [facility] [place] [address] 10/25/2023 7:00 AM EST Anticoagulation Pharmacy, [address] [place] [address] [place] [address] 10/25/2023 2:30 PM EST [facility] Visit [facility] [address] [place] [address] Sulma Seth, BOBBY [address] [place] [address] 11/10/2023 9:00 AM EST Office Visit [facility] Tyree Jordan [address] [place] [address] Rosalio Amaral MD [address] [place] [address] 12/09/2023 3:30 PM EDT Office Visit [facility] Tyree UGARTE [address] [place] [address] Rosalio Amaral MD [address] [place] [address] 12/15/2023 8:30 AM EDT Office Visit Cardiology, [facility] [address] [place] [address] Beth Gibbs CRNP [address] [place] [address] 12/29/2023 9:00 AM EDT Office Visit Otolaryngology [facility] [address] [place] [address] Haley Aguero PA-C [address] [place] [address] 03/08/2024 9:00 AM EDT Office Visit Cardiology [address] [place] [address] Tim Ruiz PA-C [address] [place] [address] Health Maintenance Due Date Last Done Comments [...] Additional history exists CKD PHOS USE SMARTSET 25646 08/16/2024 12/0 01/2023, 07/25/2023, 07/06/2023, Additional history exists Albumin/Creatinine Ratio 09/08/2024 023, 06/22/2023, 05/27/2023, Additional history exists CKD HGB USE SMARTSET 63614 09/08/202409/08, 09/08/2023, 08/16/2023, Additional history exists DTaP,Tdap,and [...] this encounter Medical Devices Implanted Type Area Oven Heater Helper Device Identifier Shelf Expiration Date Model / Serial / Lot Port Power Mri W/8fr Cath - [id number] Implanted:Qty: 1 on 09/26/2020 by Simone Michelle MD at OR [facility] Right: Chest CR BARD : PERIPHERAL VASCULAR 10/12/2021 [id number] / / [id number] Description:right IJ Lens Intraoc 19.0 - [id number] - [id number] Implanted:Qty: 1 on 02/03/2021 by Chris Sexton MD at OR [facility] Right: Eye [employer]USCH [employer] LOMB 09/11/2025 [id number] / [id number] / Lens Intraoc 19.0 - [id number] - [id number] Implanted:Qty: 1 on 02/24/2021 by Chris Sexton MD at OR [facility] Left: Eye BAUSCH & LOMB 10/12/2025 [id number] / [id number] System Urolift - [id number] Implanted:Qty: 3 on 03/17/2023 by Devyn Paniagua MD at OR [facility] N/A: Urethra [employer] 11/03/2023 SP384-5 / / [id number] documented as of this encounter Additional Health [...] and were consensually agreed upon. Care Teams Wood Molder Relationship Specialty Start Date End Date Jaime Garcia MD [address] [place] [address] [place] [address] PCP - General Family Medicine 10/15/20 documented as of this encounter
--- OUTSIDE RECORDS SUMMARY | 2023-12-07 07:56 | External Medical Summary | Summary of Care ---
Author Name Unknown Organization [facility] Address [address] [place] [address] Phone [phone] Care Team Providers Care Gas Regulator Repairer Helper Name Role Phone Jaime Garcia MD Primary Care Provide r Reason for Visit * Reason Onset Date Comments Appointment 10/20/2023 Encounter Details Date Type Department Care Team (Late st Contact Info) Description 10/20/2023 Telephone Hematology/Oncology Treatment, [place] [address] [place] [address] Rosalio Amaral MD [address] [place] [address] Appointment Allergies Active Allergy Reactions Criticality Noted [...] goal of less than 7.0% ([facility]) Test once daily DxE11.9. 100 Each 5 1 Active Albuterol Sulfate HFA 108 (90 Base) MCG/ACT Inhalation Aerosol SolutionIndications :Acute bronchitis, antibiotics not indicated Inhale 2 Puffs by mouth every 6 hours as needed for Cough or Shortness of Breath. 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 180 Tablet 1 3 Active Pen Sharon 32G X 4 MM Use as directed. [...] long-term current use of insulin ([facility]) Use as directed to check [...] Information Patient not taking.Reported on 10/04/2023 Nystatin 507290 UNIT/ML Mouth/Throat SuspensionIndicatio ns:Multiple myeloma in relapse ([facility]) Swish and swallow 5 mL [...] not included. Anna Daniel RN P [facility] Hem/Onc Nurse Pool/Class; Anna Daniel [...] 10/24/2023 1:15 PM EST Office Visit Urology, [facility] [address] [facility] [place] [address] Devyn Paniagua MD [address] [facility] [place] [address] [place] [address] 10/24/2023 2:00 PM EST Laboratory Laboratory, [facility] [address] [facility] [place] [phone] [facility] [address] [facility] [place] [address] 10/25/2023 7:00 AM EST Anticoagulation Pharmacy, [address] [place] [address] [place] [address] 10/25/2023 2:30 PM EST Home Visit [facility] [address] [facility] [place] [address] Sulma Seth RN 132 [facility] [place] [address] 11/10/2023 9:00 AM EST Office [facility] Tyree UGARTE [address] [facility] [place] [address] Rosalio Amaral MD [address] [facility] [place] [address] 12/09/2023 3:30 PM EDT Office Visit [facility]ree [place] [address] [facility] [place] [address] Rosalio Amaral MD [address] [facility] [place] [address] 12/15/2023 8:30 AM EDT Office Visit Cardiology, [facility] [address] [place] [address] Beth Gibbs CRNP [address] [place] [address] 12/29/2023 9:00 AM EDT Office Visit Otolaryngology [facility] [address] [place] [address] Haley Aguero PA-C [address] [place] [address] 03/08/2024 9:00 AM EDT Office Visit Cardiology [address] [place] [address] Tim Ruiz PA-C [address] [place] [address] Health Maintenance Due Date Last Done Comments [...] Additional history exists CKD PHOS USE SMARTSET 38283 08/16/2024 1201/2023, 07/25/2023, 07/06/2023, Additional history exists Albumin/Creatinine Ratio 09/08/2024 023, 06/22/2023, 05/27/2023, Additional history exists CKD HGB USE SMARTSET 44928 09/08/202409/08, 09/08/2023, 08/16/2023, Additional history exists DTaP,Tdap,and [...] this encounter Medical Devices Implanted Type Area Nurse School Device Identifier Shelf Expiration Date Model / Serial / Lot Port Power Mri W/8fr Cath - [id number] Implanted:Qty: 1 on 09/26/2020 by Simone Michelle MD at OR [facility] Right: Chest CR BARD : PERIPHERAL VASCULAR 10/12/2021 [id number] / / [id number] Description:right IJ Lens Intraoc 19.0 - [id number] - [id number] Implanted:Qty: 1 on 02/03/2021 by Chris Sexton MD at OR [facility] Right: Eye [employer] 09/11/2025 [id number] / [id number] / Lens Intraoc 19.0 - [id number] - [id number] Implanted:Qty: 1 on 02/24/2021 by Chris Sexton MD at OR [facility] Left: Eye BAUSCH & LOMB 10/12/2025 [id number] / [id number] / [id number] System Urolift - [id number] Implanted:Qty: 3 on 03/17/2023 by Devyn Paniagua MD at OR [facility] N/A: Urethra [employer] 11/03/2023 [id number] / / [id number] documented as of this encounter Additional Health [...] and were consensually agreed upon. Care Teams Gas Regulator Repairer Helper Relationship Specialty Start Date End Date Jaime Garcia MD [address] [place] [address] [place] [address] PCP - General Family Medicine 10/15/20 documented as of this encounter
--- OUTSIDE RECORDS SUMMARY | 2023-12-07 07:56 | External Medical Summary | Summary of Care ---
Author Name Unknown Organization [facility] Address [address] [place] [address] Phone [phone] Care Team Providers Care Senior Java Architect Name Role Phone Jaime Garcia MD Primary Care Provide r Reason for Visit * Reason Onset Date Comments Appointment 10/20/2023 Encounter Details Date Type Department Care Team (Late st Contact Info) Description 10/20/2023 Telephone Hematology/Oncology Treatment, [place] [address] [place] [address] Rosalio Amaral MD [address] [place] [address] Appointment Allergies Active Allergy Reactions Criticality Noted [...] goal of less than 7.0% ([facility]) Test once daily DxE11.9. 100 Each 5 1 Active Albuterol Sulfate HFA 108 (90 Base) MCG/ACT Inhalation Aerosol SolutionIndications :Acute bronchitis, antibiotics not indicated Inhale 2 Puffs by mouth every 6 hours as needed for Cough or Shortness of Breath. 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 180 Tablet 1 3 Active Pen [place] 32G X 4 MM Use as directed. [...] long-term current use of insulin ([facility]) Use as directed to check blood sugars [...] Information Patient not taking.Reported on 10/04/2023 Nystatin 213346 UNIT/ML Mouth/Throat SuspensionIndicatio ns:Multiple myeloma in relapse ([facility]) Swish and swallow 5 mL in the [...] were not included. Anna Daniel RN P [facility] Hem/Onc Nurse Pool/Class; Anna Daniel RN; Rosalio [...] 10/24/2023 1:15 PM EST Office Visit Urology, [facility] 132 [facility] [place] [address] Devyn Paniagua MD [address] [facility] [place] [address] [place] [address] 10/24/2023 2:00 PM EST Laboratory Laboratory, [facility] 132 [facility] [place] [phone] [facility] [address] [facility] [place] [address] 10/25/2023 7:00 AM EST Anticoagulation Pharmacy, [address] [place] [address] [place] [address] 10/25/2023 2:30 PM EST Home Visit [facility] 132 [facility] [place] [address] Sulma Seth RN 132 [facility] [place] [address] 11/10/2023 9:00 AM EST Office [facility] Tyree UGARTE [address] [facility] [place] [address] Rosalio Amaral MD [address] [facility] [place] [address] 12/09/2023 3:30 PM EDT Office Visit [facility] Tyree [place]TE [address] [facility] [place] [address] Rosalio Amaral MD [address] [facility] [place] [address] 12/15/2023 8:30 AM EDT Office Visit Cardiology, [facility] [address] [place] [address] Beth Gibbs CRNP [address] [place] [address] 12/29/2023 9:00 AM EDT Office Visit Otolaryngology [facility] [address] [place] [address] Haely Aguero PA-C [address] [place] [address] 03/08/2024 9:00 AM EDT Office Visit Cardiology [address] [place] [address] Tim Ruiz PA-C [address] [place] [address] Health Maintenance Due Date Last Done Comments [...] Additional history exists CKD PHOS USE SMARTSET 53542 08/16/2024 1201/2023, 07/25/2023, 07/06/2023, Additional history exists Albumin/Creatinine Ratio 09/08/2024 023, 06/22/2023, 05/27/2023, Additional history exists CKD HGB USE SMARTSET 37130 09/08/202409/08, 09/08/2023, 08/16/2023, Additional history exists DTaP,Tdap,and [...] this encounter Medical Devices Implanted Type Area Slot Floor Supervisor Device Identifier Shelf Expiration Date Model / Serial / Lot Port Power Mri W/8fr Cath - [id number] Implanted:Qty: 1 on 09/26/2020 by Simone Michelle MD at OR [facility] Right: Chest CR BARD : PERIPHERAL VASCULAR 10/12/2021 [id number] / / [id number] Description:right IJ Lens Intraoc 19.0 - [id number] - [id number] Implanted:Qty: 1 on 02/03/2021 by Chris Sexton MD at OR [facility] Right: Eye [employer]CH [employer]OM[employer] 09/11/2025 [id number] / [id number] / Lens Intraoc 19.0 - [id number] - [id number] Implanted:Qty: 1 on 02/24/2021 by Chris Sexton MD at OR [facility] Left: Eye BAUSCH & LOMB 10/12/2025 [id number] / [id number] / [id number] System Urolift - [id number] Implanted:Qty: 3 on 03/17/2023 by Devyn Paniagua MD at OR [facility] N/A: Urethra [employer] 11/03/2023 [id number] / / [id number] documented as of this encounter Additional Health [...] and were consensually agreed upon. Care Teams Senior Java Architect Relationship Specialty Start Date End Date Jaime Garcia MD [address] [place] [address] [place] [address] PCP - General Family Medicine 10/15/20 documented as of this encounter
--- OUTSIDE RECORDS SUMMARY | 2023-12-07 07:56 | External Medical Summary | Summary of Care ---
Author Name Unknown Organization [facility] Address [address] [place] [address] Phone [phone] Care Team Providers Care Front Counter Attendant Name Role Phone Jaime Garcia MD Primary Care Provide r Reason for Visit * Reason Comments Dosage Adjustment In Person (Anticoag Cl inic) Encounter Details Date Type Department Care Team (Latest Contact Info) Description 10/12/2023 10:40 AM EST Anticoagulation Pharmacy, [address] [place] [address] [place] [address] PAF (paroxysmal atrial fibrillation) ([facility])*; Anticoagulation management encounter; intermediate current use of anticoagulant therapy Allergies Active Allergy Reactions Criticality Noted Date Comments Atorvastatin Muscle pain High 03/30/2019 Ezetimibe Muscle pain High 01/25/2020 documented as of this encounter (statuses as of 10/12/2023) Medications Medication Sig Dispensed Refills Start Date [...] Information Patient taking differently: 50 mcg Oral [id number], Reported on 04/14/2023 Warfarin Sodium 2.5 MG Oral Tablet (Coumadin)Indicatio ns:Atrial fibrillation, unspecified type (HCC),Anticoagulati on management encounter,intermediate current use of anticoagulant therapy,Paroxysmal [...] morning. 180 Tablet 1 3 Active Pen [place] 32G X 4 MM Use as directed. [...] Information Patient not taking.Reported on 10/04/2023 Nystatin 660521 UNIT/ML Mouth/Throat SuspensionIndicatio ns:Multiple myeloma in relapse [...] as of this encounter (statuses as of 10/12/2023) Active Problems Problem Noted Date Diagnosed Date [...] as of this encounter (statuses as of 10/12/2023) Resolved Problems Problem Noted Date Diagnosed Date [...] as of this encounter (statuses as of 10/12/2023) Immunizations Name Administration Dates Next Due COVID-19, [...] this encounter Progress Notes * Barbara Jiménez, [facility] - 10/12/2023 10:41 AM EST Medication Therapy Disease Management - Anticoagulation Patient: Jerardo Ochoa Jr. | : 1970 Subjective Patient-Reported Symptoms: Patient Findings Positives: Change in medications (Abx stopped yesterday) Negatives: Signs/symptoms of thrombosis, Signs/symptoms of bleeding, Change in health, Change in alcohol use, Change in activity, Upcoming invasive procedure, Missed doses, Extra doses, Change in diet/appetite, Bruising Objective Current Warfarin Dose As of 10/12/2023 Warfarin maintenance plan: 1.25 mg (2.5 mg x 0.5) every day INR Result As of 10/12/2023 INR goal: 2.0-3.0 INR used for dosin.3 (10/12/2023) Assessment & Plan Warfarin Plan As of 10/12/2023 Full warfarin instructions: 1.25 mg every day No change documented: Barbara Jiménez RPh Next INR check: 10/24/2023 Repeat PT/INR in 2 week(s) via lab after appointment at Weekly dose: not changed Additional Dosing Information: Description AMIO start 10/29/22 - 11/22/22 BID then QD after AMIO STOPPED 05/31 Barbara Jiménez RPh Clinical Pharmacist 10/12/2023, 10:41 AM documented in this encounter Plan of Treatment Upcoming Encounters Date Type Department Care Team (Late st Contact Info) Description 10/24/2023 1:30 PM EST Office Visit Urology, [facility] [address] [facility] [place] [address] Devyn Paniagua MD [address] [place] [address] [place] [address] 10/24/2023 2:00 PM EST Laboratory Laboratory, [facility] [address] [facility] [place] [phone] [facility] [address] [facility] [place] [address] 10/25/2023 7:00 AM EST Anticoagulation Pharmacy, [address] [place] [address] [place] [address] 10/25/2023 2:30 PM EST Home Visit [facility] at [facility] [address] [place] [address] Sulma Seth RN [address] [place] [address] 11/10/2023 9:00 AM EST [facility] [place] [address] [place] [address] Rosalio Amaral MD [address] [place] [address] 12/09/2023 3:30 PM EDT Office [facility] Tyree UGARTE [address] [place] [address] Rosalio Amaral MD [address] [place] [address] 12/15/2023 8:30 AM EDT Office Visit Cardiology, [facility] [address] [place] [address] Beth Gibbs CRNP [address] [place] [address] 03/08/2024 9:00 AM EDT Office Visit Cardiology [address] [place] [address] Tim Ruiz PAPageC [facility] [place] [address] Health Maintenance Due Date Last Done Comments [...] Additional history exists CKD PHOS USE SMARTSET 63707 08/16/2024 12/0 01/2023, 07/25/2023, 07/06/2023, Additional history exists Albumin/Creatinine Ratio 09/08/2024 023, 06/22/2023, 05/27/2023, Additional history exists CKD HGB USE SMARTSET 75624 09/08/202409/08, 09/08/2023, 08/16/2023, Additional history exists DTaP,Tdap,and [...] this encounter Medical Devices Implanted Type Area Employment Appeals Examiner Device Identifier Shelf Expiration Date Model / Serial / Lot Port Power Mri W/8fr Cath - [id number] Implanted:Qty: 1 on 09/26/2020 by Simone Michelle MD at OR [facility] Right: Chest CR BARD : PERIPHERAL VASCULAR 10/12/2021 [id number] / / [id number] Description:right IJ Lens Intraoc 19.0 - [id number] - [id number] Implanted:Qty: 1 on 02/03/2021 by hCris Sexton MD at OR [facility] Right: Eye [employer]CH [employer]OMB 09/11/2025 [id number] / [id number] / Lens Intraoc 19.0 - [id number] - [id number] Implanted:Qty: 1 on 02/24/2021 by Chris Sexton MD at OR [facility] Left: Eye BAUSCH & LOMB 10/12/2025 [id number] / [id number] / [id number] System Urolift - [id number] Implanted:Qty: 3 on 03/17/2023 by Devyn Paniagua MD at OR [facility] N/A: Urethra [employer] 11/03/2023 [id number] / / [id number] documented as of this encounter Procedures Procedure Name Priority Date/Time Associated Diagnosis Comments INR FINGERSTICK, POINT OF CARE STAT 10/12/2023 10:45 AM EST PAF (paroxysmal atrial fibrillation) (HCC) Anticoagulation management encounter intermediate current use of anticoagulant therapy documented in this encounter Results * INR FINGERSTICK, POINT OF CARE (10/12/2023 10:45 AM EST) Fingerstick INR 2.3 INR 10:46 AM EST [facility]00 Blood 10/12/2023 10:4 5 AM EST 10/12/2023 10:46 AM EST Narrative [facility] 55-00 - 10/12/2023 10:46 AM EST Therapeutic ranges for non-operative patients: Prophylaxsis/treatment of DVT: (Range:2.0-3.0) Treatment of pulmonary embolism:(Range:2.0-3.0) Prevention of systemic embolism from: -tissue heart valves -acute myocardial infarction -valvular heart disease -atrial fibrillation (Range: 2.0-3.0) Mechanical prosthetic valves: (Range: 2.5-3.5) Barbara Jiménez [facility] POINT OF CARE TEST DOCKED DEVICE UNSOLICITED RESULTS [facility]-[address] [place] [address] [place] [address] documented in this encounter Visit Diagnoses Diagnosis PAF (paroxysmal atrial fibrillation) (HCC)- Primary Atrial fibrillation Anticoagulation management encounter 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 Care Teams Front Counter Attendant Relationship Specialty Start Date End Date Jaime Garcia MD [address] [place] [address] [place] [address] PCP - General Family Medicine 10/15/20 documented as of this encounter"
--- OUTSIDE RECORDS SUMMARY | 2023-12-07 07:56 | External Medical Summary ---
Author Name Unknown Address Unknown Organization : Laboratory Report Ordering Provider Test Date Status TASNEEM SLAUGHTER 10/12/2023 10:45:28 Final Therapeutic ranges for non-o perative patients:
Prophylaxsis/treatment of DVT: (Range:2.0-3.0)
Treatment of pulmonary embolism:(Range:2.0-3.0)
Prevention of systemic embolism from:
-tissue heart valves
-acute myocardial infarction
-valvular heart disease
-atrial fibrillation
(Range: 2.0-3.0)
Mechanical prosthetic valves: (Range: 2.5-3.5) Observation Date Value Abnormality Reference (Units ) Status INR in Capillary blood by Coagulation assay 10/12/2023 10:45:28 2.3 (INR) Final Performing Location
--- OUTSIDE RECORDS SUMMARY | 2023-12-07 07:57 | External Medical Summary | Summary of Care ---
Author Name Unknown Organization [facility] Address [address] [place] [address] Phone [phone] Care Team Providers Care Environmental Programs Specialist Name Role Phone Jaime Garcia MD Primary Care Provide r Encounter Details Date Type Department Care Team (Late st Contact Info) Description 10/11/2023 1:00 PM EST Telemedicine [facility] Tyree UGRATE [address] [facility] [place] [address] Rosalio Amaral MD [address] [facility] [place] [address] Multiple myeloma in relapse (HCC)* Allergies Active Allergy Reactions Criticality Noted Date Comments Atorvastatin Muscle pain High 03/30/2019 Ezetimibe Muscle pain High 01/25/2020 documented as of this encounter (statuses as of 10/11/2023) Medications Medication Sig Dispensed Refills Start Date [...] Information Patient taking differently: 50 mcg Oral [id number], Reported on 04/14/2023 Warfarin Sodium 2.5 MG Oral Tablet (Coumadin)Indicatio ns:Atrial fibrillation, unspecified type (HCC),Anticoagulati on management encounter,intermediate frame tender current use of anticoagulant therapy,Paroxysmal atrial fibrillation [...] MG Oral TabletIndications:M ultiple myeloma in relapse ([facility]) TAKE ONE TABLET BY MOUTH [...] morning. 180 Tablet 1 3 Active Pen [place] 32G X 4 MM Use as directed. [...] Information Patient not taking.Reported on 10/04/2023 Nystatin 856337 UNIT/ML Mouth/Throat SuspensionIndicatio ns:Multiple myeloma in relapse [...] as of this encounter (statuses as of 10/11/2023) Active Problems Problem Noted Date Diagnosed Date [...] as of this encounter (statuses as of 10/11/2023) Resolved Problems Problem Noted Date Diagnosed Date [...] as of this encounter (statuses as of 10/11/2023) Immunizations Name Administration Dates Next Due COVID-19, [...] Progress Notes * Rosalio Amaral MD - 10/11/2023 1:05 PM EST CLINIC NOTES JERARDO WALTON MR #[id number] : 1970 This was a telephone visit Informed consent obtained 10/11/2023 PATIENT REFERRED BY: Jaime Garcia MD. Also [...] neuropathy. INTERIM: The patient was last reviewed 09/08/2023 he had been off therapy for a [...] in the morning. 180 Tablet 1 Pen [place] 32G X 4 MM Use as directed. [...] Reported on 10/04/2023) 100 Tablet 3 Nystatin [id number] UNIT/ML Mouth/Throat Suspension Swish and swallow 5 [...] needed for breakthrough pain. 30 Tablet 0 No current facility-administered medications for this visit. [...] we can restart Velcade. He has had a drop-off in his ejection fraction and had cardiomyopathy, not sure we can go back to carfilzomib and Dr. Klein mentioned possible Tecvayli but did not mention CAR-T. Status post recent salmonella sepsis hospitalized at the [place] Likely autonomic dysfunction, manifested by orthostatic hypotension, dysphagia, gastric emptying PLAN: For possible cart Resume chemo He was to get Cytoxan-IE CyBorD This was a 30-minute visit with more than half the time spent counseling and/or coordinating care. This was a telephone visit. 13 minutes of medical discussion Rosalio Amaral MD documented in this encounter Plan of Treatment Upcoming Encounters Date Type Department Care Team (Late st Contact Info) Description 10/12/2023 10:40 AM EST Anticoagulation Pharmacy, [address] [place] [address] [place] [address] 10/24/2023 1:30 PM EST Office Visit Urology, [facility] [address] [facility] [place] [address] Devyn Paniagua MD [address] [address] [place] [address] 10/25/2023 2:30 PM EST [facility] Visit [facility] [address] [facility] [place] [address] Sulma Seth RN 132 [facility] [place] [address] 11/10/2023 9:00 AM EST Office [facility] Tyree UGARTE [address] [facility] [place] [address] Rosalio Amaral MD [address] [facility] [place] [address] 12/09/2023 3:30 PM EDT Office Visit [facility] Tyree UGARTE [address] [facility] [place] [address] Rosalio Amaral MD [address] [facility] [place] [address] 12/15/2023 8:30 AM EDT Office Visit Cardiology, [facility] [address] [place] [address] Beth Gibbs CRNP [address] [place] [address] 03/08/2024 9:00 AM EDT Office Visit Cardiology [address] [place] [address] Tim Ruiz PA-C [address] [place] [address] Scheduled Orders Name Type Priority Associated Diagnoses Orde r Schedule URIC ACID Lab Routine Multiple myeloma in relapse (HCC) Every Month for 6 Occurrences starting 10/11/2023 until 10/11/2024 Health Maintenance Due Date Last Done Comments [...] Additional history exists CKD PHOS USE SMARTSET 53118 08/16/2024 12/0 01/2023, 07/25/2023, 07/06/2023, Additional history exists Albumin/Creatinine Ratio 09/08/2024 023, 06/22/2023, 05/27/2023, Additional history exists CKD HGB USE SMARTSET 63857 09/08/202409/08, 09/08/2023, 08/16/2023, Additional history exists DTaP,Tdap,and [...] this encounter Medical Devices Implanted Type Area A R Specialist Device Identifier Shelf Expiration Date Model / Serial / Lot Port Power Mri W/8fr Cath - [id number] Implanted:Qty: 1 on 09/26/2020 by Simone Michelle MD at OR [facility] Right: Chest CR BARD : PERIPHERAL VASCULAR 10/12/2021 [id number] / / [id number] Description:right IJ Lens Intraoc 19.0 - [id number] - [id number] Implanted:Qty: 1 on 02/03/2021 by Chris Sexton MD at OR [facility] Right: Eye [employer]CH [employer] LOMB 09/11/2025 [id number] / [id number] / Lens Intraoc 19.0 - [id number] - [id number] Implanted:Qty: 1 on 02/24/2021 by Chris Sexton MD at OR [facility] Left: Eye BAUSCH & LOMB 10/12/2025 [id number] / [id number] / [id number] System Urolift - [id number] Implanted:Qty: 3 on 03/17/2023 by Devyn Paniagua MD at OR [facility] N/A: Urethra [employer] 11/03/2023 [id number] / / [id number] documented as of this encounter Visit Diagnoses [...] and were consensually agreed upon. Care Teams Environmental Programs Specialist Relationship Specialty Start Date End Date Jaime Garcia MD [address] [place] [address] [place] [phone] PCP - General Family Medicine 10/15/20 documented as of this encounter
--- OUTSIDE RECORDS SUMMARY | 2023-12-07 07:57 | External Medical Summary | Summary of Care ---
Author Name Unknown Organization [facility] Address [address] [place] [address] Phone [phone] Care Team Providers Care Trade Mark Attorney Name Role Phone Jaime Garcia MD Primary Care Provide r Reason for Visit * Reason Comments Medication Refill Encounter Details Date Type Department Care Team (Late st Contact Info) Description 10/06/2023 Refill [facility] Tyree UGARTE [address] [facility] [place] [address] Ana Amaya MD [address] [facility] [place] [address] Multiple myeloma in relapse (HCC) Allergies Active Allergy Reactions Criticality Noted Date Comments Atorvastatin Muscle pain High 03/30/2019 Ezetimibe Muscle pain High 01/25/2020 documented as of this encounter (statuses as of 10/06/2023) Medications Medication Sig Dispensed Refills Start Date [...] Information Patient taking differently: 50 mcg Oral [id number], Reported on 04/14/2023 Warfarin Sodium 2.5 MG Oral Tablet (Coumadin)Indicati ons:Atrial fibrillation, unspecified type (HCC),Anticoagulat ion management encounter,skilled nursing current use of anticoagulant therapy,Paroxysmal atrial fibrillation [...] morning. 180 Tablet 1 3 Active Pen [place] 32G X 4 MM Use as directed. [...] Information Patient not taking.Reported on 10/04/2023 Nystatin 249805 UNIT/ML Mouth/Throat SuspensionIndicati ons:Multiple myeloma in relapse [...] for breakthrough pain. 30 Tablet 0 3 10/06/19 24 Discontinu ed(Refill) documented as of this encounter (statuses as of 10/06/2023) Active Problems Problem Noted Date Diagnosed Date [...] as of this encounter (statuses as of 10/06/2023) Resolved Problems Problem Noted Date Diagnosed Date [...] as of this encounter (statuses as of 10/06/2023) Immunizations Name Administration Dates Next Due COVID-19, [...] Telephone Encounter - Ana Amaya MD - 10/06/2023 4:47 PM ESTSigned Prescriptions: Disp Refills oxyCODONE HCl 5 MG Oral Tablet (Oxy IR) 30 Tab*0 Sig: Take 1 Tablet by mouth every 4 hours as needed for breakthrough pain. Authorizing Provider: ANA AMAYA * Telephone Encounter - Kwaku Howard MD - 10/06/2023 11:29 AM ESTPending Prescriptions: Disp Refills oxyCODONE HCl 5 MG Oral Tablet (Oxy IR) 30 Tab*0 Sig: Take 1 Tablet by mouth every 4 hours as needed for breakthrough pain. documented in this encounter Plan of Treatment Upcoming Encounters Date Type Department Care Team (Late st Contact Info) Description 10/11/2023 1:00 PM EST Telemedicine [facility] Tyree UGARTE [address] [facility] [place] [address] Ana Amaya MD [address] [facility] [place] [address] 10/12/2023 10:40 AM EST Anticoagulation Pharmacy, [address] [place] [address] [place] [address] 10/24/2023 1:30 PM EST Office Visit Urology, [facility] [address] [place] [address] Devyn Paniagua MD [address] [address] [place] [address] 10/25/2023 2:30 PM EST [facility] [address] [place] [address] Sulma Seth, RN [address] [place] [address] 11/10/2023 9:00 AM EST Office Visit [facility] NikkiTyree [address] [place] [address] Ana Amaya MD [address] [place] [address] 11/23/2023 9:40 AM EDT Office Visit Nephrology, [facility] [address] [facility] [place] [address] Armando Cook MD [address] [facility] [place] [address] 12/09/2023 3:30 PM EDT Office Visit [facility] [place] Tyree [address] [place] [address] Ana Amaya MD [address] [place] [address] 12/15/2023 8:30 AM EDT Office Visit Cardiology, [facility] [address] [place] [address] Beth Gibbs CRNP [address] [place] [address] 03/08/2024 9:00 AM EDT Office Visit Cardiology [address] [place] [address] Tim Ruiz PA-C [address] [place] [phone] Health Maintenance Due Date Last Done Comments [...] Additional history exists CKD PHOS USE SMARTSET 50384 08/16/2024 12/0 01/2023, 07/25/2023, 07/06/2023, Additional history exists Albumin/Creatinine Ratio 09/08/2024 023, 06/22/2023, 05/27/2023, Additional history exists CKD HGB USE SMARTSET 28808 09/08/202409/08, 09/08/2023, 08/16/2023, Additional history exists DTaP,Tdap,and [...] this encounter Medical Devices Implanted Type Area Simplex Printer Installer Device Identifier Shelf Expiration Date Model / Serial / Lot Port Power Mri W/8fr Cath - [id number] Implanted:Qty: 1 on 09/26/2020 by Simone Michelle MD at OR [facility] Right: Chest CR BARD : PERIPHERAL VASCULAR 10/12/2021 [id number] / / [id number] Description:right IJ Lens Intraoc 19.0 - [id number] - [id number] Implanted:Qty: 1 on 02/03/2021 by Chris Sexton MD at OR [facility] Right: Eye BAUSCH [employer] LOMB 09/11/2025 [id number] / [id number] / Lens Intraoc 19.0 - [id number] - [id number] Implanted:Qty: 1 on 02/24/2021 by Chris Sexton MD at OR [facility] Left: Eye BAUSCH & LOMB 10/12/2025 [id number] / [id number] / [id number] System Urolift - [id number] Implanted:Qty: 3 on 03/17/2023 by Devyn Paniagua MD at OR [facility] N/A: Urethra [employer] 11/03/2023 UT776-1 / / [id number] documented as of this encounter Visit Diagnoses [...] and were consensually agreed upon. Care Teams Trade Mark Attorney Relationship Specialty Start Date End Date Jaime Garcia MD [address] [place] [address] [place] [address] PCP - General Family Medicine 10/15/20 documented as of this encounter
--- OUTSIDE RECORDS SUMMARY | 2023-12-07 07:57 | External Medical Summary | Summary of Care ---
Author Name Unknown Organization [facility] Address [address] [place] [address] Phone [phone] Care Team Providers Care Scheduling Representative Name Role Phone Jaime Garcia MD Primary Care Provide r Encounter Details Date Type Department Care Team (Late st Contact Info) Description 10/11/2023 Telephone Infectious Disease, [place] [address] [place] [address] Jabari Vivar MD [address] [place] [address] Allergies Active Allergy Reactions Criticality Noted Date [...] hemoglobin A1c goal of less than 7.0% ([facility]) Test once daily DxE11.9. 100 Each 5 1 Active Albuterol Sulfate HFA 108 (90 Base) MCG/ACT Inhalation Aerosol SolutionIndications :Acute bronchitis, antibiotics not indicated Inhale 2 Puffs by mouth every 6 hours as needed for Cough or Shortness of Breath. 54 g 1 1 Active Acyclovir 400 MG Oral Tablet (Zovirax)Indication s:Lambda light chain myeloma ([facility]) Take one tablet once daily [...] (Decadron)Indicatio ns:Multiple myeloma not having achieved remission ([facility]) 5 tabs 2 times monthly [...] Information Patient taking differently: 50 mcg Oral [id number], Reported on 04/14/2023 Warfarin Sodium 2.5 MG [...] MG Oral TabletIndications:M ultiple myeloma in relapse ([facility]) TAKE ONE TABLET BY MOUTH [...] hemoglobin A1c goal of less than 7.0% ([facility]) Take 2 Tablets by mouth in the morning. 180 Tablet 1 3 Active Pen [place] 32G X 4 MM Use as directed. [...] disease, without long-term current use of insulin ([facility]) Use as directed to check [...] Information Patient not taking.Reported on 10/04/2023 Nystatin 833620 UNIT/ML Mouth/Throat SuspensionIndicatio ns:Multiple myeloma in relapse [...] encounter Miscellaneous Notes * Telephone Encounter - Norma Grant LPN - 10/11/2023 11:22 AM EST Test results forwarded to Dr. Vivar via TT. Per his review, Pt to stop IV Abx and PICC line may beremoved. He is going to [facility] daily for IV Abx. He has an appt later today. Pt is agreeable to plan. I will contact them for orders to stop IV Abx and remove PICC line. I spoke with Tatianna at [facility] and they are aware of plan. Norma Grant LPN Nurse Navigator ID documented in this encounter Plan of Treatment Upcoming Encounters Date Type Department Care Team (Late st Contact Info) Description 10/11/2023 1:00 PM EST Telemedicine [facility] Tyree UGARTE [address] [place] [address] Rosalio Amaral MD [address] [place] [address] Arrived 10/12/2023 10:40 AM EST Anticoagulation Pharmacy, [address] [place] [address] [place] [address] 10/24/2023 1:30 PM EST Office Visit Urology, [facility] [address] [facility] [place] [address] Devyn Paniagua MD [address] [facility] [address] [place] [address] 10/25/2023 2:30 PM EST [facility] [address] [facility] [place] [address] Sulma Seth, BOBBY [address] [facility] [place] [address] 11/10/2023 9:00 AM EST Office Visit [facility] Tyree UGARTE [address] [place] [address] Rosalio Amaral MD [address] [place] [address] 12/09/2023 3:30 PM EDT Office Visit [facility] Tyree UGARTE [address] [place] [address] Rosalio Amaral MD [address] [place] [address] 12/15/2023 8:30 AM EDT Office Visit Cardiology, [facility] [address] [place] [address] Beth Gibbs CRNP [address] [place] [address] 03/08/2024 9:00 AM EDT Office Visit Cardiology [address] [place] [address] Tim Ruiz PA-C [address] [place] [address] Health Maintenance Due Date Last Done Comments [...] Additional history exists CKD PHOS USE SMARTSET 90145 08/16/2024 12/0 01/2023, 07/25/2023, 07/06/2023, Additional history exists Albumin/Creatinine Ratio 09/08/2024 023, 06/22/2023, 05/27/2023, Additional history exists CKD HGB USE SMARTSET 14325 09/08/202409/08, 09/08/2023, 08/16/2023, Additional history exists DTaP,Tdap,and [...] this encounter Medical Devices Implanted Type Area Table Setter Device Identifier Shelf Expiration Date Model / Serial / Lot Port Power Mri W/8fr Cath - [id number] Implanted:Qty: 1 on 09/26/2020 by Simone Michelle MD at OR [facility] Right: Chest CR BARD : PERIPHERAL VASCULAR 10/12/2021 [id number] / / [id number] Description:right IJ Lens Intraoc 19.0 - [id number] - [id number] Implanted:Qty: 1 on 02/03/2021 by Chris Sexton MD at OR [facility] Right: Eye BAUSCH & LOMB 09/11/2025 [id number] / [id number] / Lens Intraoc 19.0 - [id number] - [id number] Implanted:Qty: 1 on 02/24/2021 by Chris Sexton MD at [facility] Left: Eye BAUSCH & LOMB 10/12/2025 [id number] / [id number] / [id number] System Urolift - [id number] Implanted:Qty: 3 on 03/17/2023 by Devyn Paniagua MD at OR [facility] N/A: Urethra [employer] 11/03/2023 [id number] / / [id number] documented as of this encounter Additional Health [...] and were consensually agreed upon. Care Teams Scheduling Representative Relationship Specialty Start Date End Date Jaime Garcia MD [address] [place] [address] [place] [address] PCP - General Family Medicine 10/15/20 documented as of this encounter
--- OUTSIDE RECORDS SUMMARY | 2023-12-07 07:58 | External Medical Summary ---
Author Name Unknown Address Unknown Organization K01:[facility] [place] - [address] [place] [address] Laboratory Report Ordering Provider Test Date Status FRANCO DA SILVA 10/05/2023 07:59:37 Final Observation Date Value Abnormality Reference (Units) Status Source 10/05/2023 07:59:37 Semi-liquid Final Clostridioides difficile toxin and BI-NAP1-027 strain DNA panel - Stool by EDWIN with probe detection 10/05/2023 07:59:37 Negative. No C. difficile toxin B gene DNA detected by PCR (Amplified Probe). Negative Final Performing Location [facility] - [address] [place] [address]
--- OUTSIDE RECORDS SUMMARY | 2023-12-07 07:58 | External Medical Summary ---
Author Name Unknown Address Unknown Organization K01:[facility] - [address] [place] [id number] Laboratory Report Ordering Provider Test Date Status FRANCO DA SILVA 10/05/2023 07:59:47 Final Observation Date Value Abnormality Reference (Units) Status Bacteria identified in Specimen by Culture 10/05/2023 07:59:47 No Aeromonas species or Plesiomonas species isolated. Final Test: Gastrointestinal Patho gen Panel Culture
Specimen Source: Stool
Specimen Type: Stool
Specimen Date: 10/05/2023 7:59 AM
Result Date: 10/07/2023 11:48 AM
Result Status: Final result
Resulting Lab: [facility]
[address]
[place] [id number]

CULTURE

No Aeromonas species or Plesiomonas species isolated.

null Performing Location [facility] - [address] [place] [id number]
--- OUTSIDE RECORDS SUMMARY | 2023-12-07 07:58 | External Medical Summary | Summary of Care ---
Author Name Unknown Organization [facility] Address [address] [place] [address] Phone [phone] Care Team Providers Care Perianesthesia Nurse Name Role Phone Jaime Garcia MD Primary Care Provide r Encounter Details Date Type Department Care Team (Late st Contact Info) Description 09/29/2023 Documentation Home Infusion, [place] [address] [place] [address] Services, [facility] [address] [place] [address] Allergies Active Allergy Reactions Criticality Noted Date Comments Atorvastatin Muscle pain High 03/30/2019 Ezetimibe Muscle pain High 01/25/2020 documented as of this encounter (statuses as of 09/29/2023) Medications Medication Sig Dispensed Refills Start Date [...] Information Patient taking differently: 50 mcg Oral [id number], Reported on 04/14/2023 Warfarin Sodium 2.5 MG Oral Tablet (Coumadin)Indicatio ns:Atrial fibrillation, unspecified type (HCC),Anticoagulati on management encounter,[facility] current use of anticoagulant therapy,Paroxysmal [...] MG Oral TabletIndications:M ultiple myeloma in relapse ([facility]) TAKE ONE TABLET BY MOUTH EVERY DAY [...] less than 7.0% ([facility]) Take 2 Tablets by mouth in the morning. 180 Tablet 1 3 Active Pen [place] 32G X 4 MM Use as directed. [...] Tablet 3 3 Active Additional Information Patient taking differently:10 mg Oral Daily(AM),2 tabs daily, Indications: takes extra tab for swelling, wt gain, Reported on 09/09/2023 Nystatin 722144 UNIT/ML Mouth/Throat SuspensionIndicatio ns:Multiple myeloma in relapse (HCC) Swish and swallow 5 mL in the morning and 5 mL at noon and 5 mL in the evening and 5 mL before bedtime. 60 mL 1 3 Active Vemlidy 25 MG Oral Tablet (Tenofovir [...] by mouth in the morning. 0 Active documented as of this encounter (statuses as of 09/29/2023) Active Problems Problem Noted Date Diagnosed Date [...] myeloma without remission 06/14/2014 Overview: Dr Rodriges/ [facility] ADVANCE DIRECTIVE INFORMATION 10/13/2006 Overview: No, Advance Directive brochure offered , patient declined. Degeneration of lumbosacral intervertebral disc 02/19/2005 documented as of this encounter (statuses as of 09/29/2023) Resolved Problems Problem Noted Date Diagnosed Date [...] as of this encounter (statuses as of 09/29/2023) Immunizations Name Administration Dates Next Due COVID-19, [...] as of this encounter Progress Notes * Lisa Castano RN - 09/29/2023 3:[address] Amaral, The following documentation summarizes the services provided by [facility] Home Infusion Services asthe prescribed therapy has been completed. The client was referred to us for home therapy. The ordered therapy was hizentra 6 gram SC weekly The home therapy began on: 10/14/2022. Per physician order: -the prescribed therapy was completed on: 09/27/2023, patient is not agreeable to cost. The client and/or caregiver were compliant with therapy administration. The therapy goals were met. The following instructions were provided during our final conversation with the client and/or caregiver: -appropriate disposal of unused waste, supplies and/or medication, -return of equipment and associated accessories, -importance of keeping all follow up appointments Collaboration of Care: -[facility]fusion Services clinical staff were notified of therapy completion documented in this encounter Plan of Treatment Upcoming Encounters Date Type Department Care Team (Late st Contact Info) Description 10/04/2023 11:00 AM EST Office Visit Infectious Disease [facility] [address] [place] [address] Jabari Vivar MD [address] [facility] [place] [address] 10/11/2023 1:00 PM EST Telemedicine [facility] Tyree UGARTE [address] [facility] [place] [address] Rosalio Amaral MD [address] [facility] [place] [address] 10/12/2023 10:40 AM EST Anticoagulation Pharmacy, [address] [place] [address] [place] [address] 10/24/2023 1:30 PM EST Office Visit Urology, [facility] [address] [place] [address] Devyn Paniagua MD [address] [place] [address] 10/25/2023 2:30 PM EST [facility] [address] [facility] [place] [address] Sulma Seth, RN [facility] [address] 11/10/2023 9:00 AM EST Office Visit [facility] Tyree UGARTE [address] [facility] [place] [address] Rosalio Amaral MD [address] [facility] [place] [address] 11/23/2023 9:40 AM EDT Office Visit Nephrology, [facility] [address] [place] [address] Armando Cook MD [address] [place] [address] 12/09/2023 3:30 PM EDT Office Visit [facility] Tyree UGARTE [address] [facility] [place] [address] Rosalio Amaral MD [address] [place] [address] 12/15/2023 8:30 AM EDT Office Visit Cardiology, [facility] [address] [place] [address] Beth Gibbs CRNP [address] [place] [address] 03/08/2024 9:00 AM EDT Office Visit Cardiology [address] [place] [address] Tim Ruiz PA-C [address] [place] [address] Health Maintenance Due Date Last Done Comments [...] Additional history exists CKD PHOS USE SMARTSET 36027 08/16/2024 120 01/2023, 07/25/2023, 07/06/2023, Additional history exists Albumin/Creatinine Ratio 09/08/2024 023, 06/22/2023, 05/27/2023, Additional history exists CKD HGB USE SMARTSET 99408 09/08/202409/08, 09/08/2023, 08/16/2023, Additional history exists DTaP,Tdap,and [...] this encounter Medical Devices Implanted Type Area Applied Psychology Professor Device Identifier Shelf Expiration Date Model / Serial / Lot Port Power Mri W/8fr Cath - [id number] Implanted:Qty: 1 on 09/26/2020 by Simone Michelle MD at OR [facility] Right: Chest CR BARD : PERIPHERAL VASCULAR 10/12/2021 [id number] / / [id number] Description:right IJ Lens Intraoc 19.0 - [id number] - [id number] Implanted:Qty: 1 on 02/03/2021 by Chris Sexton MD at OR [facility] Right: Eye [employer] 09/11/2025 [id number] / [id number] / Lens Intraoc 19.0 - [id number] - [id number] Implanted:Qty: 1 on 02/24/2021 by Chris Sexton MD at OR [facility] Left: Eye [employer]OM[employer] 10/12/2025 [id number] / [id number] / [id number] System Urolift - [id number] Implanted:Qty: 3 on 03/17/2023 by Devyn Paniagua MD at OR [facility] N/A: Urethra [employer] 11/03/2023 [id number] / / [id number] documented as of this encounter Additional Health [...] and were consensually agreed upon. Care Teams Perianesthesia Nurse Relationship Specialty Start Date End Date Jaime Garcia MD [address] [place] [address] [place] [address] PCP - General Family Medicine 10/15/20 documented as of this encounter
--- OUTSIDE RECORDS SUMMARY | 2023-12-07 07:58 | External Medical Summary ---
Author Name Unknown Address Unknown Organization K01:[facility] [address] [facility] [place] [address] Laboratory Report Ordering Provider Test Date Status FRANCO DA SILVA 10/05/2023 07:59:47 Final Observation Date Value Abnormality Reference (Units ) Status Campylobacter sp DNA.diarrheagenic [Presence] in Stool by EDWIN with probe detection 10/05/2023 07:59:47 Negative Negative Final Salmonella sp rpoD gene [Presence] in Stool by EDWIN with probe detection 10/05/2023 07:59:47 Negative Negative Final Shigella species+EIEC invasion plasmid antigen H ipaH gene [Presence] in Stool by EDWIN with probe detection 10/05/2023 07:59:47 Negative Negative Final Vibrio sp DNA [Identifier] in Specimen by EDWIN with probe detection 10/05/2023 07:59:47 Negative Negative Final Yersinia enterocolitica recN gene [Presence] in Stool by EDWIN with probe detection 10/05/2023 07:59:47 Negative Negative Final Escherichia coli Stx1 toxin stx1 gene [Presence] in Stool by EDWIN with probe detection 10/05/2023 07:59:47 Negative Negative Final Escherichia coli Stx2 toxin stx2 gene [Presence] in Stool by EDWIN with probe detection 10/05/2023 07:59:47 Negative Negative Final Norovirus genogroups I and II RNA panel - Stool by EDWIN with probe detection 10/05/2023 07:59:47 Negative Negative Final Rotavirus A RNA [Presence] in Stool by EDWIN with probe detection 10/05/2023 07:59:47 Negative Negative Final Performing Location [facility] [address] [place] [address]
--- OUTSIDE RECORDS SUMMARY | 2023-12-07 07:58 | External Medical Summary | Summary of Care ---
Author Name Unknown Organization [facility] Address [address] [place] [address] Phone [phone] Care Team Providers Care Cargo Operations Agent Name Role Phone Jaime Garcia MD Primary Care Provide r Reason for Visit * Reason Comments Hospital Follow-Up [facility]- Salmonella ent eritis Encounter Details Date Type Department Care Team (Late st Contact Info) Description 10/04/2023 11:00 AM EST Office Visit Infectious Disease [address] [address] Jabari Vivar MD [address] [place] [address] Salmonella* Allergies Active Allergy Reactions Criticality Noted Date Comments Atorvastatin Muscle pain High 03/30/2019 Ezetimibe Muscle pain High 01/25/2020 documented as of this encounter (statuses as of 10/04/2023) Medications Medication Sig Dispensed Refills Start Date [...] goal of less than 7.0% ([facility]) Use as directed daily. Test once daily DxE11.9 100 Strip 5 1 Active LancetsIndications: Type 2 diabetes mellitus with hemoglobin A1c goal of less than 7.0% ([facility]) Test once daily DxE11.9. 100 Each 5 1 Active Albuterol Sulfate HFA 108 (90 Base) MCG/ACT Inhalation Aerosol SolutionIndications :Acute bronchitis, antibiotics not indicated Inhale 2 Puffs by mouth every 6 hours as needed for Cough or Shortness of Breath. 54 g 1 1 Active Acyclovir 400 MG Oral Tablet (Zovirax)Indication s:Lambda light chain myeloma ([facility]) Take one tablet once daily 180 Tablet [...] (Decadron)Indicatio ns:Multiple myeloma not having achieved remission ([facility]) 5 tabs 2 times monthly 10 Tablet [...] Information Patient taking differently: 50 mcg Oral [id number], Reported on 04/14/2023 Warfarin Sodium 2.5 MG Oral Tablet (Coumadin)Indicatio ns:Atrial fibrillation, unspecified type (HCC),Anticoagulati on management encounter,longterm current use of anticoagulant therapy,Paroxysmal [...] goal of less than 7.0% ([facility]) Take 2 Tablets by mouth in the morning. 180 Tablet 1 3 Active Pen [place] 32G X 4 MM Use as directed. [...] Tablet (Oxy IR)Indications:Mult iple myeloma in relapse ([facility]) Take 1 Tablet by mouth every 4 [...] long-term current use of insulin ([facility]) Use as directed to check blood sugars [...] Information Patient not taking.Reported on 10/04/2023 Nystatin 722822 UNIT/ML Mouth/Throat SuspensionIndicatio ns:Multiple myeloma in relapse [...] Administer 2 g intravenously daily. 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 Degeneration of lumbosacral intervertebral disc 02/19/2005 documented as of this encounter (statuses as of 10/04/2023) Resolved Problems Problem Noted Date Diagnosed Date [...] as of this encounter (statuses as of 10/04/2023) Immunizations Name Administration Dates Next Due COVID-19, [...] Sign Reading Time Taken Comments Blood Pressure 104/76 10/04/2023 10:42 AM EST Pulse 83 10/04/2023 10:42 AM EST Temperature 36.5 C (97.7 F) 10/04/2023 1 0:42 AM EST Respiratory Rate 18 10/04/2023 10:4 2 AM EST Oxygen Saturation 100% 10/04/2023 10: 42 AM EST Inhaled Oxygen Concentration - - Weight 70.2 kg (154 lb 12.8 oz) 024 10:42 AM EST Height 175.3 cm (5' 9") 10/04/2023 10:4 2 AM EST Body Mass Index 22.86 10/04/2023 10:42 AM EST documented in this encounter Progress Notes * Jabari Vivar MD - 10/04/2023 11:01 AM EST Infectious Diseases Ambulatory Clinic Follow-up Note CC/HPI: Mr. Ochoa has a h/o multiple myeloma, DM, and CKD. He is seen today for follow-up of recurrent Salmonella gastroenteritis. He first developed infection after Thanksgiving ?exposure to raw turkey. He was put on cipro followed by TMP- SMX after concerns about QT prolongation. He had some improvement, but then worsening again. He was hospitalized at [facility] and this time put on IV CTX for 4 weeks. He has been tolerating this therapy with no rash or fevers, but still has diarrhea. He has 1-2 episodes daily, watery with "sand" consistency. No N/V, but has poor appetite overall. The remainder of his ROS is otherwise negative. Outpatient Medications Marked as Taking for the 10/04/23 encounter (Office Visit) with Jabari Vivar MD Medication Sig Advanced Probiotic 10 Oral Capsule 1 Capsule in the morning. NSS 0.9 % SOLN 100 mL with cefTRIAXone 2 GM SOLR 2 g Administer 2 g intravenously daily. Ondansetron 4 MG Oral Tablet Disintegrating (Zofran) Potassium Chloride ER 20 MEQ Oral Tablet Extended Release Take 1 Tablet by mouth in the morning. Prochlorperazine Maleate 10 MG Oral Tablet (Compazine) Take 1 Tablet by mouth every 6 hours as needed for Nausea. Ondansetron HCl 8 MG Oral Tablet (Zofran) Take 1 Tablet by mouth every 8 hours as needed for Nausea. Vemlidy 25 MG Oral Tablet (Tenofovir Alafenamide Fumarate) Take 1 tablet by mouth in the morning. Midodrine HCl 10 MG Oral Tablet (Proamatine) Take 2 tablet shortly before or upon rising in the morning, at midday, and in the late afternoon (not later than 6 PM) DexEnflick G7 Sensor Use as directed to check blood sugars daily. Change every 10 days Pantoprazole Sodium 20 MG Oral Tablet Delayed Release (Protonix) TAKE ONE TABLET BY MOUTH EVERY DAYIN THE MORNING Folic Acid 400 MCG Oral Tablet TAKE ONE TABLET BY MOUTH IN THE MORNING Magnesium Chloride 64 MG Oral Tablet Delayed Release (Mag64) Take 1 Tablet by mouth in the morning and 1 Tablet before bedtime. oxyCODONE HCl 5 MG Oral Tablet (Oxy IR) Take 1 Tablet by mouth every 4 hours as needed for breakthrough pain. Icosapent Ethyl 1 GM Oral Capsule (Vascepa) Take 2 Capsules by mouth 2 times a day with morning andevening meals. Swallow capsules whole, do not open or break. metFORMIN HCl ER 500 MG Oral Tablet Extended Release 24 Hour (Glucophage XR) Take 2 Tablets by mouth in the morning. Repatha SureClick 140 MG/ML Subcutaneous Solution Auto-injector (evolocumab) INJECT 140MG (1 INJECTION) UNDER THE SKIN EVERY 14 DAYS. REMOVE FROM REFRIGERATOR 30 MINUTES PRIOR TO INJECTION Cholecalciferol 50 MCG (2000 UT) Oral Tablet Take 50 mcg by mouth in the morning. (Patient taking differently: Take 150 mcg by mouth in the morning.) DULoxetine HCl 20 MG Oral Capsule Delayed Release Particles (Cymbalta) Take 2 Capsules by mouth in the morning. Dapsone 25 MG Oral Tablet TAKE ONE TABLET BY MOUTH EVERY DAY Finasteride 5 MG Oral Tablet (Proscar) TAKE 1 TABLET BY MOUTH IN THE MORNING oxyCODONE-Acetaminophen 5-325 MG Oral Tablet (Percocet) Take 1 Tablet by mouth every 6 hours as needed for Pain, Severe. Levothyroxine Sodium 50 MCG Oral Tablet (Levoxyl) TAKE 1 TABLET BY MOUTH DAILY AT LEAST 30 MINUTES PRIOR TO FIRST MEAL OF THE DAY OR OTHER MEDICATIONS (Patient taking differently: Take 1 Tablet by mouth daily first thing in the morning.) Polyethylene Glycol 3350 17 GM Oral Packet Take 1 Packet by mouth daily as needed. Warfarin Sodium 2.5 MG Oral Tablet (Coumadin) TAKE ONE TABLET BY MOUTH ON TUESDAY AND TUESDAY, AND ONE-HALF TABLET ALL OTHER DAYS OR DIRECTED BY ANTICOAGULATION CLINIC (Patient taking differently: Take 0.5 Tablets by mouth in the morning.) Dexamethasone 4 MG Oral Tablet (Decadron) 5 tabs 2 times monthly EpiPen 2-Konstantin 0.3 MG/0.3ML Injection Solution Auto-injector For a severe reaction: Inject in outer thigh following instructions on package and go to the Emergency room. Acetaminophen 325 MG Oral Tablet (Tylenol) Take two 325 mg tablets by mouth one hour prior to Hizentra. diphenhydrAMINE HCl 50 MG Oral Capsule (Benadryl) Take one 25 mg capsule by mouth one hour prior toHizentra, Hizentra 2 GM/10ML Subcutaneous Solution (immune globulin human 20%) Patient is to subcutaneously inject one 2 gram vial plus one four gram vial for a total of 6 grams weekly after loading dose of 12grams twice weekly x four weeks . Acyclovir 400 MG Oral Tablet (Zovirax) Take one tablet once daily Albuterol Sulfate HFA 108 (90 Base) MCG/ACT Inhalation Aerosol Solution Inhale 2 Puffs by mouth every 6 hours as needed for Cough or Shortness of Breath. Lancets Test once daily DxE11.9. oxygen IN GAS Use 2 L/min(Oxygen) as directed at bedtime. CPAP every night at bedtime. NSS 0.9 % SOLN with daratumumab 400 MG/20ML SOLN 16 mg/kg Administer intravenously every 14 days. Physical examination Filed Vitals: 10/04/23 1042 BP: 104/76 Pulse: 83 Resp: 18 Temp: 36.5 C (97.7 F) SpO2: 100% Weight: 70.2 kg (154 lb 12.8 oz) Height: 1.753 m (5' 9") Constitutional: no acute distress HEENT: normal: normocephalic, atraumatic; no masses, tenderness, or adenopathy CV: normal rate, normal rhythm Chest: normal respiratory effort, breath sounds normal Extremities: no clubbing, cyanosis, or edema, otherwise grossly normal, warm, and dry Laboratory review CMP from 09/22/23 reviewed by me: Creatinine 1.4 BUN 8 Na 138 Albumin 3.6 ALT 14 Alk Phos 107 Total bili 0.3 Impression 1. Recurrent Salmonellosis 2. Multiple myeloma 3. CKD Plan Repeat GI pathogen panel and C diff testing ?ongoing infection vs abx effect. If negative, will likely stop the CTX. If positive, will need culture and further abx susceptibility testing. Jabari Vivar MD Department of Infectious Diseases documented in this encounter Nursing Notes * Savana Canales, RN - 10/04/2023 10:40 AM EST Chief Complaint Patient presents with Hospital Follow-Up [facility]- Salmonella enteritis Pt states bowels are moving 1-2 times day or 8-9 x day, liquid, no form. Hx of C diff 3 years ago. Getting Rocephin via port daily at [facility]. About 2 more weeks to go. documented in this encounter Plan of Treatment Upcoming Encounters Date Type Department Care Team (Late st Contact Info) Description 10/11/2023 1:00 PM EST Telemedicine [facility] Tyree UGARTE [address] [place] [address] Rosalio Amaral MD [address] [facility] [place] [address] 10/12/2023 10:40 AM EST Anticoagulation Pharmacy, [address] [place] [address] [place] [address] 10/24/2023 1:30 PM EST Office Visit Urology, [facility] [address] [facility] [place] [address] Devyn Paniagua MD 27 [facility] [address] [place] [address] 10/25/2023 2:30 PM EST [facility] [address] [facility] [place] [address] Sulma Seth RN 132 [facility] [place] [address] 11/10/2023 9:00 AM EST Office Visit [facility] Tyree UGARTE [address] [place] [address] Rosalio Amaral MD [address] [facility] [place] [address] 11/23/2023 9:40 AM EDT Office Visit Nephrology, [facility]la Renae [address] [place] [address] Armando Cook MD [address] [place] [address] 12/09/2023 3:30 PM EDT Office Visit [facility] Tyree UGARTE [address] [facility] [place] [address] Rosalio Amaral MD [address] [place] [address] 12/15/2023 8:30 AM EDT Office Visit Cardiology, [facility] [address] [facility] [place] [address] Beth Gibbs CRNP [address] [place] [address] 03/08/2024 9:00 AM EDT Office Visit Cardiology [address] [place] [address] Tim Ruiz PAPageC [address] [place] [address] Scheduled Orders Name Type Priority Associated Diagnoses Orde r Schedule GASTROINTESTINAL PATHOGEN PANEL, STOOL Lab Routine Salmonella Ordered: 10/04/2023 CLOSTRIDIUM DIFFICILE, PCR Lab Routine Salmonella Ordered: 10/04/2023 Health Maintenance Due Date Last Done Comments HIV Screening 1985 Hepatitis C Screening 01/29/1988 Cologuard 2015 Fecal Occult Blood Test 2015 Sigmoidoscopy 2015 COVID-19 Vaccine (3 - Pfizer risk series) 11/03/2021 10/06/2021, 06/23/2021 Depression Screening 01/05/2022 01/05/2021 Diabetic Foot Exam 12/14/2022 12/14/2021, 0 10/15/2020, 06/25/2019 HbA1c 01/05/2024 07/06/2023, 08/0 11/2022, 03/29/2023, Additional history exists GFR 03/22/2024 09/22/2023, /04/2023, 08/22/2023, Additional history exists Pneumococcal Vaccine: Pediatrics (0 to 5 Years) and At-Risk Patients (6 to 64 Years) (3 - PPSV23 or PCV20) 05/22/2024 05/13/2020, 05/22/2019 Diabetic Eye Exam 07/11/2024 07/11/2023, , 06/29/2021, Additional history exists TSH 07/25/2024 07/25/2023, 03/12, 01/31/2023, Additional history exists CKD PHOS USE SMARTSET 43875 08/16/2024 120 01/2023, 07/25/2023, 07/06/2023, Additional history exists Albumin/Creatinine Ratio 09/08/2024 023, 06/22/2023, 05/27/2023, Additional history exists CKD HGB USE SMARTSET 49636 09/08/202409/08, 09/08/2023, 08/16/2023, Additional history exists DTaP,Tdap,and [...] this encounter Medical Devices Implanted Type Area Seed Cleaner Operator Device Identifier Shelf Expiration Date Model / Serial / Lot Port Power Mri W/8fr Cath - [id number] Implanted:Qty: 1 on 09/26/2020 by Simone Michelle MD at OR [facility] Right: Chest CR BARD : PERIPHERAL VASCULAR 10/12/2021 [id number] / / [id number] Description:right IJ Lens Intraoc 19.0 - [id number] - [id number] Implanted:Qty: 1 on 02/03/2021 by Chris Sexton MD at OR [facility] Right: Eye [employer] 09/11/2025 [id number] / [id number] / Lens Intraoc 19.0 - [id number] - [id number] Implanted:Qty: 1 on 02/24/2021 by Chris Sexton MD at OR [facility] Left: Eye [employer]OM[employer] 10/12/2025 [id number] / [id number] System Urolift - [id number] Implanted:Qty: 3 on 03/17/2023 by Devyn Paniagua MD at OR [facility] N/A: Urethra [employer] 11/03/2023 [id number] / / [id number] documented as of this encounter Visit Diagnoses Diagnosis Salmonella- Primary Salmonella infection, unspecified documented in this encounter Additional Health Concerns Infection Onset Date Last Indicated Resolved Time Salmonella 09/14/2023 09/14/2023 Gastrointestinal Rule-Out 10/04/2023 10/04/2023 C. difficile Rule-Out 10/04/2023 10/04/2023 documented as of this encounter Advance Directives [...] and were consensually agreed upon. Care Teams Cargo Operations Agent Relationship Specialty Start Date End Date Jaime Garcia MD [address] [place] [address] [place] [phone] PCP - General Family Medicine 10/15/20 documented as of this encounter
--- OUTSIDE RECORDS SUMMARY | 2023-12-07 07:58 | External Medical Summary | Summary of Care ---
Author Name Unknown Organization [facility] Address [address] [place] [address] Phone [phone] Care Team Providers Care Deputy Juvenile Officer Name Role Phone Jaime Garcia MD Primary Care Provide r Reason for Visit * Reason Comments Outpatient Testing Encounter Details Date Type Department Care Team (Late st Contact Info) Description 10/05/2023 8:00 AM EST Laboratory Laboratory, [facility] [address] [facility] [place] [phone] Arnel, Specimen Drop Off [facility] [place] [address] Arrived Allergies Active Allergy Reactions Criticality Noted Date Comments Atorvastatin Muscle pain High 03/30/2019 Ezetimibe Muscle pain High 01/25/2020 documented as of this encounter (statuses as of 10/05/2023) Medications Medication Sig Dispensed Refills Start Date [...] hemoglobin A1c goal of less than 7.0% ([facility]) Use as directed daily. Test once daily DxE11.9 100 Strip 5 1 Active LancetsIndications: Type 2 diabetes mellitus with hemoglobin A1c goal of less than 7.0% ([facility]) Test once daily DxE11.9. 100 Each 5 1 Active Albuterol Sulfate HFA 108 (90 Base) MCG/ACT Inhalation Aerosol SolutionIndications :Acute bronchitis, antibiotics not indicated Inhale 2 Puffs by mouth every 6 hours as needed for Cough or Shortness of Breath. 54 g 1 1 Active Acyclovir 400 MG Oral Tablet (Zovirax)Indication s:Lambda light chain myeloma ([facility]) Take one tablet once daily [...] (Decadron)Indicatio ns:Multiple myeloma not having achieved remission ([facility]) 5 tabs 2 times monthly [...] Information Patient taking differently: 50 mcg Oral [id number], Reported on 04/14/2023 Warfarin Sodium 2.5 MG Oral Tablet (Coumadin)Indicatio ns:Atrial fibrillation, unspecified type (HCC),Anticoagulati on management encounter,halfway current use of anticoagulant therapy,Paroxysmal [...] hemoglobin A1c goal of less than 7.0% ([facility]) Take 2 Tablets by mouth in the morning. 180 Tablet 1 3 Active Pen [place] 32G X 4 MM Use as directed. [...] Tablet (Oxy IR)Indications:Mult iple myeloma in relapse ([facility]) Take 1 Tablet by mouth [...] disease, without long-term current use of insulin ([facility]) Use as directed to check [...] Information Patient not taking.Reported on 10/04/2023 Nystatin 625265 UNIT/ML Mouth/Throat SuspensionIndicatio ns:Multiple myeloma in relapse [...] as of this encounter (statuses as of 10/05/2023) Active Problems Problem Noted Date Diagnosed Date [...] myeloma without remission 06/14/2014 Overview: Dr Rodriges/ [facility] ADVANCE DIRECTIVE INFORMATION 10/13/2006 Overview: No, Advance Directive brochure offered , patient declined. Degeneration of lumbosacral intervertebral disc 02/19/2005 documented as of this encounter (statuses as of 10/05/2023) Resolved Problems Problem Noted Date Diagnosed Date [...] as of this encounter (statuses as of 10/05/2023) Immunizations Name Administration Dates Next Due COVID-19, [...] [facility] Tyree UGAR[facility] [address] [facility] [place] [address] Rosalio Amaral MD [address] [facility] [place] [address] 10/12/2023 10:40 AM EST Anticoagulation Pharmacy, [address] [place] [address] [place] [address] 10/24/2023 1:30 PM EST Office Visit Urology, [facility] [place] [address] Devyn Paniagua MD [address] [facility] [address] [place] [address] 10/25/2023 2:30 PM EST [facility] Visit [facility] [place] [address] Sulma Seth, BOBBY [address] [place] [address] 11/10/2023 9:00 AM EST Office Visit Hemat[facility] Ty[facility] Jordan [address] [place] [address] Rosalio Amaral MD [address] [place] [address] 11/23/2023 9:40 AM EDT Office Visit Nephrology, [facility] [address] [facility] [place] [address] Armando Cook MD [address] [facility] [place] [address] 12/09/2023 3:30 PM EDT Office Visit [facility] Tyree Jordan [address] [place] [address] Rosalio Amaral MD [address] [place] [address] 12/15/2023 8:30 AM EDT Office Visit Cardiology, [facility] [place] [address] Beth Gibbs CRNP [address] [place] [address] 03/08/2024 9:00 AM EDT Office Visit Cardiology [address] [place] [address] Tim Ruiz PA-C [address] [place] [address] Health Maintenance Due Date Last Done Comments [...] Additional history exists CKD PHOS USE SMARTSET 04958 08/16/2024 12/0 01/2023, 07/25/2023, 07/06/2023, Additional history exists Albumin/Creatinine Ratio 09/08/2024 023, 06/22/2023, 05/27/2023, Additional history exists CKD HGB USE SMARTSET 61177 09/08/202409/08, 09/08/2023, 08/16/2023, Additional history exists DTaP,Tdap,and [...] this encounter Medical Devices Implanted Type Area Marketing Sales Supervisor Device Identifier Shelf Expiration Date Model / Serial / Lot Port Power Mri W/8fr Cath - [id number] Implanted:Qty: 1 on 09/26/2020 by Simone Michelle MD at OR [facility] Right: Chest CR BARD : PERIPHERAL VASCULAR 10/12/2021 [id number] / / [id number] Description:right IJ Lens Intraoc 19.0 - [id number] - [id number] Implanted:Qty: 1 on 02/03/2021 by Chris Sexton MD at OR [facility] Right: Eye [employer] 09/11/2025 [id number] / [id number] / Lens Intraoc 19.0 - [id number] - [id number] Implanted:Qty: 1 on 02/24/2021 by Chris Sexton MD at OR [facility] Left: Eye [employer]OMB 10/12/2025 [id number] / [id number] / [id number] System Urolift - [id number] Implanted:Qty: 3 on 03/17/2023 by Devyn Panaigua MD at OR [facility] N/A: Urethra [employer] 11/03/2023 [id number] / / [id number] documented as of this encounter Additional Health Concerns Infection Onset Date Last Indicated Resolved Time Salmonella 09/14/2023 09/14/2023 Gastrointestinal Rule-Out 10/04/2023 10/05/2023 C. difficile Rule-Out 10/04/2023 10/05/2023 documented as of this encounter Advance Directives [...] and were consensually agreed upon. Care Teams Deputy Juvenile Officer Relationship Specialty Start Date End Date Jaime Garcia MD [address] [place] [address] [place] [id number] PCP - General Family Medicine 10/15/20 documented as of this encounter
--- OUTSIDE RECORDS SUMMARY | 2023-12-07 07:59 | External Medical Summary | Summary of Care ---
Author Name Unknown Organization [facility] Address [address] [place] [address] Phone [phone] Care Team Providers Care Rag Shredder Name Role Phone Jaime Garcia MD Primary Care Provide r Reason for Visit * Reason Onset Date Comments Advice 09/23/2023 Encounter Details Date Type Department Care Team (Late st Contact Info) Description 09/23/2023 Telephone Family Medicine [address] [phone] Jaime Garcia MD [address] [place] [address] [place], [place] [phone] Advice Allergies Active Allergy Reactions Criticality Noted Date Comments Atorvastatin Muscle pain High 03/30/2019 Ezetimibe Muscle pain High 01/25/2020 documented as of this encounter (statuses as of 09/27/2023) Medications Medication Sig Dispensed Refills Start Date [...] Information Patient taking differently: 50 mcg Oral [id number], Reported on 04/14/2023 Warfarin Sodium 2.5 MG Oral Tablet (Coumadin)Indicatio ns:Atrial fibrillation, unspecified type (HCC),Anticoagulati on management encounter,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 15 mL 3 3 Active Additional Information Patient taking differently:10 Units Subcutaneous [id number],On hold until seen by MTM 09/14, Reported on 09/09/2023 Pen [place] 32G X 4 MM Use as directed. [...] IR)Indications:Mult iple myeloma in relapse ([facility]) Take 1 Tablet by mouth every 4 [...] swelling, wt gain, Reported on 09/09/2023 Nystatin [id number] UNIT/ML Mouth/Throat SuspensionIndicatio ns:Multiple myeloma in relapse [...] as of this encounter (statuses as of 09/27/2023) Active Problems Problem Noted Date Diagnosed Date [...] myeloma without remission 06/14/2014 Overview: Dr Rodriges/ [facility] ADVANCE DIRECTIVE INFORMATION 10/13/2006 Overview: No, Advance Directive brochure offered , patient declined. Degeneration of lumbosacral intervertebral disc 02/19/2005 documented as of this encounter (statuses as of 09/27/2023) Resolved Problems Problem Noted Date Diagnosed Date [...] as of this encounter (statuses as of 09/27/2023) Immunizations Name Administration Dates Next Due COVID-19, [...] 1:14 PM EDT Sexual Orientation Straight 02/22/2022 1 :14 PM EDT Job Start Date Occupation Industry Not on file Not on file Not on file documented as of this encounter Miscellaneous Notes * Telephone Encounter - Rosemary Kerr RN - 09/27/2023 1:46 PM EST See my g message 09/26/23 * Telephone Encounter - Anna Funes LPN - 09/23/2023 1:53 PM EST Pt's insurance does not cover at home abx. Will try to find out how this exception needs to be done, and if we're going to request an exception from insurance anyway would they prefer we try to get it to be done at home instead of at [facility]? * Telephone Encounter - Nurys Garcia OSA - 09/23/2023 11:59 AM EST called, she needs a prior auth exception from the pcp for daily iv antibiotics because its a hardship to get to [facility] and they need [facility] have [facility] and they need the exception for the insurance, if you have any questions please call the , thank you documented in this encounter Plan of Treatment Upcoming Encounters Date Type Department Care Team (Late st Contact Info) Description 09/28/2023 11:30 AM EST Anticoagulation Pharmacy, [address] [place] [address] [place] [address] 09/28/2023 11:40 AM EST Pharmacy Pharmacy, [address] [place] [address] [place] [address] 10/04/2023 11:00 AM EST Office Visit Infectious Disease [address] [phone] Jabari Vivar MD [address] [place] [address] 10/11/2023 1:00 PM EST Telemedicine H[facility]ology [facility] Tyree UGARTE [address] [facility] [place] [address] Rosalio Amaral MD [address] [facility] [place] [id number] 10/24/2023 1:30 PM EST Office Visit Urology, [facility] [address] [facility] [place] [address] Devyn Paniagua MD [address] [place] [address] 10/25/2023 2:30 PM EST [facility] [address] [facility] [place] [address] Sulma Seth RN [address] [facility] [place] [address] 11/10/2023 9:00 AM EST Office Visit [facility] Tyree Jordan [address] [place] [address] Rosalio Amaral MD [address] [place] [address] 11/23/2023 9:40 AM EDT Office Visit Nephrology, Carla Renae [address] [facility] [place] [address] Armando Cook MD [address] [place], [place] [address] 12/09/2023 3:30 PM EDT Office Visit [facility] Tyree Jordan [address] [place] [address] Rosalio Amaral MD [address] [place] [address] 12/15/2023 8:30 AM EDT Office Visit Cardiology, [facility] [address] [facility] [place] [address] Beth Gibbs CRNP [address] [facility] [place] [address] 03/08/2024 9:00 AM EDT Office Visit Cardiology [address] [place] [address] Tim Ruiz PA-Chato [address] [place] [address] Health Maintenance Due Date Last Done Comments [...] Additional history exists CKD PHOS USE SMARTSET 93877 08/16/2024 12/0 01/2023, 07/25/2023, 07/06/2023, Additional history exists Albumin/Creatinine Ratio 09/08/202409/08/2 023, 06/22/2023, 05/27/2023, Additional history exists CKD HGB USE SMARTSET 52051 09/08/202409/08, 09/08/2023, 08/16/2023, Additional history exists DTaP,Tdap,and [...] this encounter Medical Devices Implanted Type Area Fly Raiser Lockstitch Device Identifier Shelf Expiration Date Model / Serial / Lot Port Power Mri W/8fr Cath - [id number] Implanted:Qty: 1 on 09/26/2020 by Simone Michelle MD at OR [facility] Right: Chest CR BARD : PERIPHERAL VASCULAR 10/12/2021 [id number] / / [id number] Description:right IJ Lens Intraoc 19.0 - [id number] - [id number] Implanted:Qty: 1 on 02/03/2021 by Chris Sexton MD at OR [facility] Right: Eye [employer] 09/11/2025 [id number] / [id number] / Lens Intraoc 19.0 - [id number] - [id number] Implanted:Qty: 1 on 02/24/2021 by Chris Sexton MD at OR [facility] Left: Eye BAUSCH [employer] LOMB 10/12/2025 [id number] / [id number] / [id number] System Urolift - [id number] Implanted:Qty: 3 on 03/17/2023 by Devyn Paniagua MD at OR [facility] N/A: Urethra [employer] 11/03/2023 [id number] / / [id number] documented as of this encounter Additional Health [...] and were consensually agreed upon. Care Teams Rag Shredder Relationship Specialty Start Date End Date Jaime Garcia MD [address] [place] [address] [place] [address] PCP - General Family Medicine 10/15/20 documented as of this encounter
--- OUTSIDE RECORDS SUMMARY | 2023-12-07 07:59 | External Medical Summary | Summary of Care ---
Author Name Unknown Organization [facility] Address [address] [place] [address] Phone [phone] Care Team Providers Care Respiratory Assistant Name Role Phone Jaime Garcia MD Primary Care Provide r Reason for Visit * Reason Comments Dosage Adjustment In Person (Anticoag Cl inic) Diabetes Follow-Up Encounter Details Date Type Department Care Team (Late st Contact Info) Description 09/28/2023 11:40 AM [facility] Pharmacy Pharmacy, [address] [place] [address] [place] [address] Type 2 diabetes mellitus with stage 3b chronic kidney disease, without long-term current use of insulin ([facility])* Allergies Active Allergy Reactions Criticality Noted Date Comments Atorvastatin Muscle pain High 03/30/2019 Ezetimibe Muscle pain High 01/25/2020 documented as of this encounter (statuses as of 09/28/2023) Medications Medication Sig Dispensed Refills Start Date [...] goal of less than 7.0% ([facility]) Use as directed daily. Test once daily DxE11.9 100 Strip 03/02/20 Active LancetsIndications :Type 2 diabetes mellitus with hemoglobin A1c goal of less than 7.0% ([facility]) Test once daily DxE11.9. 100 Each 03/02/20 Active Albuterol Sulfate HFA 108 (90 Base) MCG/ACT Inhalation Aerosol SolutionIndication s:Acute bronchitis, antibiotics not indicated Inhale 2 Puffs by mouth every 6 hours as needed for Cough or Shortness of Breath. 54 g 1 06/30/20 21 Active Acyclovir 400 MG Oral Tablet (Zovirax)Indicatio ns:Lambda light chain myeloma ([facility]) Take one tablet once daily 180 Tablet 12/15/19 22 Active Hizentra 4 GM/20ML Subcutaneous [...] (Decadron)Indicati ons:Multiple myeloma not having achieved remission ([facility]) 5 tabs 2 times monthly [...] Information Patient taking differently: 50 mcg Oral [id number], Reported on 04/14/2023 Warfarin Sodium 2.5 MG Oral Tablet (Coumadin)Indicati ons:Atrial fibrillation, unspecified type (HCC),Anticoagulat ion management encounter,prison current use of anticoagulant therapy,Paroxysmal atrial fibrillation (HCC) TAKE ONE TABLET BY MOUTH ON TUESDAY AND TUESDAY, AND ONE-HALF TABLET ALL OTHER DAYS OR DIRECTED BY ANTICOAGULATION CLINIC 75 Tablet 3 11/11/19 23 024 Active Additional Information Patient taking differently: 0.5 Tablet Oral Daily(AM), Reported on 08/20/2023 Dexamethasone 4 MG Oral Tablet (Decadron) TAKE 5 TABLETS BY MOUTH TWICE A MONTH 10 Tablet 5 10/27/19 23 024 Active Finasteride 5 MG Oral Tablet (Proscar) TAKE 1 TABLET BY MOUTH IN THE MORNING 90 Tablet 3 04/12/20 23 024 Active Dapsone 25 MG Oral TabletIndications: Multiple myeloma in relapse (HCC) TAKE ONE TABLET BY MOUTH EVERY DAY 90 Tablet 1 04/26/20 23 024 Active DULoxetine HCl 20 MG Oral Capsule Delayed Release Particles (Cymbalta) Take 2 Capsules by mouth in the morning. 180 Capsule 1 06/06/20 23 Active Cholecalciferol 50 MCG (2000 UT) Oral [...] goal of less than 7.0% ([facility]) Take 2 Tablets by mouth in the morning. 180 Tablet 1 07/11/20 Active Pen Nimitz 32G X 4 MM Use as directed. Inject Lantus once daily. 50 Each 3 07/19/20 Active Icosapent Ethyl 1 GM Oral Capsule (Vascepa)Indicatio ns:Hyperlipidemia with target LDL less than 70 Take 2 Capsules by mouth 2 times a day with morning and evening meals. Swallow capsules whole, do not open or break. 360 Capsule 3 07/20/20 Active oxyCODONE HCl 5 MG Oral Tablet (Oxy IR)Indications:Mul tiple myeloma in relapse ([facility]) Take 1 Tablet by mouth every 4 hours as needed for breakthrough pain. 30 Tablet 0 08/18/20 Active Magnesium Chloride 64 MG Oral Tablet [...] long-term current use of insulin ([facility]) Use as directed to check blood sugars daily. Change every 10 days 9 Each 3 09/01/20 Active Midodrine HCl 10 MG Oral Tablet (Proamatine)Indica tions:takes 1-3 tabs depending on bp as needed Take 2 tablet shortly before or upon rising in the morning, at midday, and in the late afternoon (not later than 6 PM) 600 Tablet 3 09/02/20 Active Torsemide 10 MG Oral Tablet (Demadex)Indicatio ns:takes extra tab for swelling, wt gain Take 1 Tablet by mouth in the morning every other day. 100 Tablet 3 09/02/20 Active Additional Information Patient taking differently:10 mg Oral Daily(AM),2 tabs daily, Indications: takes extra tab for swelling, wt gain, Reported on 09/09/2023 Nystatin 754130 UNIT/ML Mouth/Throat SuspensionIndicati ons:Multiple myeloma in relapse (HCC) Swish and swallow 5 mL in the morning and 5 mL at noon and 5 mL in the evening and 5 mL before bedtime. 60 mL 1 09/08/20 23 Active Vemlidy 25 MG Oral Tablet (Tenofovir [...] by mouth in the morning. 0 Active Insulin Glargine Solostar 100 UNIT/ML Subcutaneous Solution Pen-injector (Lantus SoloStar) Inject 10 Units under the skin every evening. 15 mL 3 07/19/20 23 024 Discontinued documented as of this encounter (statuses as of 09/28/2023) Active Problems Problem Noted Date Diagnosed Date [...] as of this encounter (statuses as of 09/28/2023) Resolved Problems Problem Noted Date Diagnosed Date [...] as of this encounter (statuses as of 09/28/2023) Immunizations Name Administration Dates Next Due COVID-19, [...] this encounter Progress Notes * Barbara Jiménez, [facility] - 09/28/2023 11:32 AM EST Images from the original note were not included. Medication Therapy Disease Management [facility] - Diabetes Management Progress Note Jerardo Brittany Ochoa Jr., identified by name and date of , is a 53 year old male being seen for diabetes management/education. Patient presents for return diabetic visit. DIABETES: Current diabetic medications: Metformin ER 500mg - 2 tablets daily HOLD Lantus 10 units daily eGFR 62 as of 06/27/23 Medication Injection Site: N/A Lifestyle: Diet: unchanged Glucose Review/SMBG: Readings obtained from patient device Hypoglycemia: Does your blood sugar go below 70 mg/dL? No Hyperglycemia symptoms present: none Recent Labs Units 07/06/23 0853 04/14/23 1451 03/29/23 0909 HEMOGLOBIN A1C - [facility] % 9.3* 8.2* 8.4* Recent Labs Units 09/22/23 0936 09/08/23 1203 08/22/23 1622 ESTIMATED GLOMERULAR FILTRATION RATE - [facility] mL/min 61 58* 40* CREATININE - [facility] mg/dL 1.4* 1.5* 2.0* HYPERTENSION: Patient on ACEi/ARB: not often tolerated with amlyoidosis per cards 09/2020 BP Readings from Last 3 Encounters: 09/22/23 100/60 09/13/23 94/62 09/09/23 98/54 Blood pressure at goal: yes HYPERLIPIDEMIA: Patient is taking moderate or high intensity statin: no, statin intolerant. On Repatha HEALTH MAINTENANCE REVIEW: Health Maintenance Due Topic Date Due HIV Screening Never done Hepatitis C Screening Never done COVID-19 Vaccine (3 - Pfizer risk series) 11/03/2021 Depression Screening 01/05/2022 Diabetic Foot Exam 12/14/2022 ASSESSMENT & PLAN: ICD-10-CM 1. Type 2 diabetes mellitus with stage 3b chronic kidney disease, without long- term current use of insulin (HCC) E11.22 N18.32 Considerations: CKD, CAD Multiple myeloma (2013) s/p autologous stem cell transplantation Amyloidosis Did not tolerate Ozempic d/t constipation, stopped around May 2023 BG Readings - Blood sugars controlled. Averages at goal. Utilizing Dexcom. Medications - Reviewed current regimen, patient is adherent to regimen. Continuing to hold Lantus, at goal. Will plan to discontinue at this time. Diet, Exercise, Lifestyle - Recent hospital admission. Receiving IV abx daily x4 weeks d/t recurrently Salmonella infection. Overall tolerating okay. Patient is agreeable to SMBG daily with CGM (DexcomG7) Patient aware to contact clinic if any hypoglycemia before next visit. MEDICATION CHANGES: no change Diabetic Medications: Metformin ER 500mg - 2 tablets daily eGFR 62 as of 06/27/23 HEALTH MAINTENANCE INTERVENTIONS: Deferred FOLLOW UP: Return to clinic to be scheduled with subsequent ACC visits Barbara Jiménez [facility] Clinical Pharmacist - Security Shift Manager Medication Therapy Management Clinic 09/28/2023, 11:32 AM documented in this encounter Plan of Treatment Upcoming Encounters Date Type Department Care Team (Late st Contact Info) Description 10/04/2023 11:00 AM EST Office Visit Infectious Disease [address] [phone] Jabari Vivar MD [address] [place] [address] 10/11/2023 1:00 PM EST Telemedicine [facility] Tyree UGARTE [address] [facility] [place] [address] Rosalio Amaral MD [address] [facility] [place] [address] 10/12/2023 10:40 AM EST Anticoagulation Pharmacy, [address] [place] [address] [place] [address] 10/24/2023 1:30 PM EST Office Visit Urology, [facility] [address] [facility] [place] [address] Devyn Paniagua MD [address] [place] [address] 10/25/2023 2:30 PM EST Home Visit [facility], [facility] [address] [place] [address] Sulma Seth, BOBBY [address] [facility] [place] [address] 11/10/2023 9:00 AM EST Office Visit [facility] Tyree UGARTE [address] [facility] [place] [address] Rosalio Amaral MD [address] [facility] [place] [address] 11/23/2023 9:40 AM EDT Office Visit Nephrology, [facility] [address] [place] [address] Armando Cook MD [address] [place] [address] 12/09/2023 3:30 PM EDT [facility] [address] [place] [address] [facility]alio [facility]al [facility] [address] [facility] [address] 12/15/2023 8:30 AM EDT Office Visit Cardiology, [facility] [address] [place] [address] Beth Gibbs CRNP [address] [place] [address] 03/08/2024 9:00 AM EDT Office Visit Cardiology [address] [place] [address] Tim Ruiz, PA-C [address] [place] [address] Health Maintenance Due Date Last Done Comments [...] Additional history exists CKD PHOS USE SMARTSET 06160 08/16/2024 1201/2023, 07/25/2023, 07/06/2023, Additional history exists Albumin/Creatinine Ratio 09/08/2024 023, 06/22/2023, 05/27/2023, Additional history exists CKD HGB USE SMARTSET 05423 09/08/202409/08, 09/08/2023, 08/16/2023, Additional history exists DTaP,Tdap,and [...] encounter Medical Devices Implanted Type Area Service Supervisor Device Identifier Shelf Expiration Date Model / Serial / Lot Port Power Mri W/8fr Cath - [id number] Implanted:Qty: 1 on 09/26/2020 by Simone Michelle MD at OR [facility] Right: Chest CR BARD : PERIPHERAL VASCULAR 10/12/2021 [id number] / / [id number] Description:right IJ Lens Intraoc 19.0 - [id number] - [id number] Implanted:Qty: 1 on 02/03/2021 by Chris Sexton MD at OR [facility] Right: Eye [employer] LOMB 09/11/2025 [id number] / [id number] / Lens Intraoc 19.0 - [id number] - [id number] Implanted:Qty: 1 on 02/24/2021 by Chris Sexton MD at OR [facility] Left: Eye BAUSCH & LOMB 10/12/2025 [id number] / [id number] / [id number] System Urolift - [id number] Implanted:Qty: 3 on 03/17/2023 by Devyn Paniagua MD at OR [facility] N/A: Urethra [employer] 11/03/2023 [id number] / / [id number] documented as of this encounter Visit Diagnoses Diagnosis Type 2 diabetes mellitus with stage 3b chronic kidney disease, without long-term current use of insulin (HCC)- Primary documented in this encounter Additional Health Concerns [...] and were consensually agreed upon. Care Teams Respiratory Assistant Relationship Specialty Start Date End Date Jaime Garcia MD [address] [place] [address] [place] [phone] PCP - General Family Medicine 10/15/20 documented as of this encounter
--- OUTSIDE RECORDS SUMMARY | 2023-12-07 07:59 | External Medical Summary ---
Author Name Unknown Address Unknown Organization : Laboratory Report Ordering Provider Test Date Status TASNEEM SLAUGHTER 09/28/2023 11:37:41 Final Therapeutic ranges for non-o perative patients:
Prophylaxsis/treatment of DVT: (Range:2.0-3.0)
Treatment of pulmonary embolism:(Range:2.0-3.0)
Prevention of systemic embolism from:
-tissue heart valves
-acute myocardial infarction
-valvular heart disease
-atrial fibrillation
(Range: 2.0-3.0)
Mechanical prosthetic valves: (Range: 2.5-3.5) Observation Date Value Abnormality Reference (Units ) Status INR in Capillary blood by Coagulation assay 09/28/2023 11:37:41 2.0 (INR) Final Performing Location
--- OUTSIDE RECORDS SUMMARY | 2023-12-07 07:59 | External Medical Summary | Summary of Care ---
Author Name Unknown Organization [facility] Address [address] [place] [address] Phone [phone] Care Team Providers Care Filter Bed Placer Name Role Phone Jaime Garcia MD Primary Care Provide r Reason for Visit * Reason Comments Dosage Adjustment In Person (Anticoag Cl inic) Encounter Details Date Type Department Care Team (Latest Contact Info) Description 09/28/2023 11:30 AM EST Anticoagulation Pharmacy, [address] [place] [phone] [place] [address] PAF (paroxysmal atrial fibrillation) ([facility])*; Anticoagulation management encounter; alf current use of [...] Tablet (Zovirax)Indication s:Lambda light chain myeloma ([facility]) [...] ns:Multiple myeloma not having achieved remission ([facility]) 5 tabs 2 times monthly 10 Tablet [...] Information Patient taking differently: 50 mcg Oral [id number], Reported on 04/14/2023 Warfarin Sodium 2.5 MG Oral Tablet (Coumadin)Indicatio ns:Atrial fibrillation, unspecified type (HCC),Anticoagulati on management encounter,alf current use of anticoagulant therapy,Paroxysmal atrial fibrillation [...] morning. 180 Tablet 1 3 Active Pen [place] 32G X 4 MM Use as directed. [...] (Oxy IR)Indications:Mult iple myeloma in relapse ([facility]) Take 1 Tablet by mouth every 4 [...] current use of insulin ([facility]) Use as directed to check blood sugars [...] swelling, wt gain, Reported on 09/09/2023 Nystatin 145966 UNIT/ML Mouth/Throat SuspensionIndicatio ns:Multiple myeloma in relapse [...] this encounter Progress Notes * Barbara Jiménez, [facility] - 09/28/2023 11:33 AM EST Medication Therapy Disease Management - Anticoagulation Patient: Jerardo Ochoa Jr. | : 1970 Subjective Patient-Reported Symptoms: Patient Findings Positives: Change in medications, Hospital admission Negatives: Signs/symptoms of thrombosis, Signs/symptoms of bleeding, Change in health, Change in alcohol use, Change in activity, Upcoming invasive procedure, Missed doses, Extra doses, Change in diet/appetite, Bruising Objective Current Warfarin Dose As of 09/28/2023 Warfarin maintenance plan: 1.25 mg (2.5 mg x 0.5) every day INR Result As of 09/28/2023 INR goal: 2.0-3.0 INR used for dosin.0 (09/28/2023) Assessment & Plan Warfarin Plan As of 09/28/2023 Full warfarin instructions: 1.25 mg every day No change documented: Barbara Jiménez RPh Next INR check: 10/12/2023 Repeat PT/INR in 2 week(s) Weekly dose: not changed Additional Dosing Information: Recent hospital admission. 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 Description AMIO start 10/29/22 - 11/22/22 BID then QD after AMIO STOPPED 05/31 Barbara Jiménez RPh Clinical Pharmacist 09/28/2023, 11:33 AM documented in this encounter Plan of Treatment Upcoming Encounters Date Type Department Care Team (Late st Contact Info) Description 10/04/2023 11:00 AM EST Office Visit Infectious Disease [address] [phone] Jabari Vivar MD [address] [place], [place] [phone] 10/11/2023 1:00 PM EST Telemedicine [facility] [place]arly [place] [address] [facility] [place] [phone] Rosalio Amaral MD [address] [facility] [place] [address] 10/12/2023 10:40 AM EST Anticoagulation Pharmacy, [address] [place] [address] [place] [address] 10/24/2023 1:30 PM EST Office Visit Urology, [facility] [address] [facility] [place] [phone] Devyn Paniagua MD [address] [facility] [address] [place] [address] 10/25/2023 2:30 PM EST Home Visit isinger at [facility] [address] [place] [address] Sulma Seth, BOBBY [address] [place] [address] 11/10/2023 9:00 AM EST Office Visit [facility] Tyree Jordan [address] [place] [address] Rosalio Amaral MD [address] [place] [address] 11/23/2023 9:40 AM EDT Office Visit Nephrology, [facility] [address] [place] [address] Armando Cook MD [address] [place] [address] 12/09/2023 3:30 PM EDT Office Visit [facility] Tyree UGARTE [address] [place] [address] Rosalio Amaral MD [address] [place] [address] 12/15/2023 8:30 AM EDT Office Visit Cardiology, [facility] [address] [place] [address] Beth Gibbs CRNP [address] [place] [address] 03/08/2024 9:00 AM EDT Office Visit Cardiology [address] [place] [address] Tim Ruiz PA-C [address] [place] [address] Health Maintenance Due Date Last Done Comments [...] Additional history exists CKD PHOS USE SMARTSET 67411 08/16/2024 12/01/2023, 07/25/2023, 07/06/2023, Additional history exists Albumin/Creatinine Ratio 09/08/2024 023, 06/22/2023, 05/27/2023, Additional history exists CKD HGB USE SMARTSET 45426 09/08/202409/08, 09/08/2023, 08/16/2023, Additional history exists DTaP,Tdap,and [...] this encounter Medical Devices Implanted Type Area Radio Division Captain Device Identifier Shelf Expiration Date Model / Serial / Lot Port Power Mri W/8fr Cath - [id number] Implanted:Qty: 1 on 09/26/2020 by Simone Michelle MD at OR [facility] Right: Chest CR BARD : PERIPHERAL VASCULAR 10/12/2021 [id number] / / [id number] Description:right IJ Lens Intraoc 19.0 - [id number] - [id number] Implanted:Qty: 1 on 02/03/2021 by Chris Sexton MD at OR [facility] Right: Eye BAUSCH [employer] LOMB 09/11/2025 [id number] / [id number] / Lens Intraoc 19.0 - [id number] - [id number] Implanted:Qty: 1 on 02/24/2021 by Chris Sexton MD at OR [facility] Left: Eye BAUSCH & LOMB 10/12/2025 [id number] / [id number] / [id number] System Urolift - [id number] Implanted:Qty: 3 on 03/17/2023 by Devyn Paniagua MD at OR [facility] N/A: Urethra [employer] 11/03/2023 [id number] / / [id number] documented as of this encounter Procedures Procedure Name Priority Date/Time Associated Diagnosis Comments INR FINGERSTICK, POINT OF CARE STAT 09/28/2023 11:37 AM EST PAF (paroxysmal atrial fibrillation) (HCC) 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 documented in this encounter Results * INR FINGERSTICK, POINT OF CARE (09/28/2023 11:37 AM EST) Fingerstick INR 2.0 INR 12:11 PM EST [facility] [place] [id number] Blood 09/28/2023 11:3 7 AM EST 09/28/2023 12:11 PM EST Narrative [facility] [place] [facility]-00 - 09/28/2023 12:11 PM EST Therapeutic ranges for non-operative patients: Prophylaxsis/treatment of DVT: (Range:2.0-3.0) Treatment of pulmonary embolism:(Range:2.0-3.0) Prevention of systemic embolism from: -tissue heart valves -acute myocardial infarction -valvular heart disease -atrial fibrillation (Range: 2.0-3.0) Mechanical prosthetic valves: (Range: 2.5-3.5) Barbara Jiménez [facility] LAB POINT OF CARE TEST DOCKED DEVICE UNSOLICITED RESULTS [facility] [address] [place] [address] [place] [id number] documented in this encounter Visit Diagnoses Diagnosis PAF (paroxysmal atrial fibrillation) (HCC)- Primary Atrial fibrillation Anticoagulation management encounter Encounter for therapeutic drug monitoring exterminator helper current use of anticoagulant therapy documented in [...] and were consensually agreed upon. Care Teams Filter Bed Placer Relationship Specialty Start Date End Date Jaime Garcia MD [address] [place] [address] [place] [address] PCP - General Family Medicine 10/15/20 documented as of this encounter"
--- OUTSIDE RECORDS SUMMARY | 2023-12-07 07:59 | External Medical Summary | Summary of Care ---
Author Name Unknown Organization [facility] Address [address] [place] [address] Phone [phone] Care Team Providers Care Distribution Dispatcher Name Role Phone Jaime Garcia MD Primary Care Provide r Reason for Visit * Reason Onset Date Comments Appointment 06/29/2023 Encounter Details Date Type Department Care Team (Late st Contact Info) Description 06/29/2023 Telephone Cardiology, [facility] [address] [facility] [place] [address] Luz Marina Awad PA-C [address] [place] [address] [place] [phone] Appointment Allergies Active Allergy Reactions Criticality Noted [...] Information Patient taking differently: 50 mcg Oral [id number], Reported on 04/14/2023 Warfarin Sodium 2.5 MG Oral Tablet (Coumadin)Indicati ons:Atrial fibrillation, unspecified type (HCC),Anticoagulat ion management encounter,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 16 g 1 1 09/02/20 23 Discontinu ed(Patient preference /discontin uation) Imiquimod 5 % External Cream (Aldara)Indication s:Anal condyloma Apply topically to affected area at bedtime. 3 times per week and wash off after 6-10 hours. Use up to 16 weeks Given by [facility] 12 Packet 3 1 09/02/20 23 Discontinu ed(Patient preference /discontin uation) Torsemide 20 MG Oral Tablet (Demadex)Indicatio ns:takes extra tab for swelling, wt gain Take 1 Tablet by mouth in the morning. Takes every other day . 0 09/02/20 Discontinu ed(Refill) COVID-19 At Home Antigen Test In Vitro Kit DIRECTED 5 Kit 5 2 09/02/20 Discontinu ed(Patient preference /discontin uation) Ondansetron HCl 8 MG Oral Tablet (Zofran)Indication s:Nausea Take 1 Tablet (8 mg) by mouth every 8 hours as needed for Nausea. 30 Tablet 3 2 09/14/19 24 Discontinu ed(Refill) Prochlorperazine Maleate 10 MG Oral Tablet (Compazine) Take 1 Tablet by mouth every 6 hours as needed for Nausea. Take 1 tablet by mouth between 1st and 2nd Zofran doses and between the 2nd and 3rd Zofran doses. Do this when you need her not for the 1st 2 days and then as you need for nausea 28 Tablet 1 2 09/20/19 24 Discontinu ed(Refill) Famotidine 20 MG Oral Tablet Take 1 Tablet by mouth at bedtime. Take one one hour prior to weekly hizentra by mouth . 30 Tablet 3 3 09/02/20 23 Discontinu ed(Patient preference /discontin uation) Bisacodyl 5 [...] 3rd day. 40 Tablet 1 3 09/02/20 23 Discontinu ed(Patient preference /discontin uation) Midodrine HCl 10 MG Oral Tablet (Proamatine)Indica tions:takes 1-3 tabs depending on bp as needed Take 1 Tablet by mouth every morning. Take 0.5 tablet shortly before or upon rising in the morning, at midday, and in the late afternoon (not later than 6 PM) 135 Tablet 3 3 09/02/20 23 Discontinu ed(Refill) Silodosin 8 MG Oral Capsule (Rapaflo) Take 1 Capsule by mouth in the morning. 30 Capsule 1 3 09/09/20 23 Discontinu ed(Medicat ion List Clean Up) Folic Acid 400 MCG Oral TabletIndications: Low folate TAKE ONE TABLET BY MOUTH IN THE MORNING 90 Tablet 1 3 08/27/20 23 Discontinu ed(Refill) Pantoprazole Sodium 20 MG Oral Tablet Delayed Release (Protonix)Indicati ons:Gastroesophage al reflux disease without esophagitis TAKE ONE TABLET BY MOUTH EVERY DAY IN THE MORNING 90 Tablet 2 3 08/31/20 23 Discontinu ed(Refill) Escitalopram Oxalate 10 MG Oral Tablet (Lexapro)Indicatio ns:Lambda light chain myeloma (HCC) TAKE ONE TABLET BY MOUTH IN THE MORNING. 90 Tablet 3 3 08/20/20 23 Discontinu ed(Medicat ion List Clean Up) Potassium Chloride ER 10 MEQ Oral Tablet Extended ReleaseIndications :Chronic diastolic congestive heart failure (HCC) TAKE ONE TABLET BY MOUTH EVERY DAY 90 Tablet 3 3 09/02/20 23 Discontinu ed(Refill) Tenofovir Alafenamide Fumarate 25 MG Oral Tablet (Vemlidy) Take 1 tablet by mouth in the morning. 90 Tablet 1 3 09/09/20 23 Discontinu ed(Refill) metFORMIN HCl ER 500 MG Oral Tablet Extended Release 24 Hour (Glucophage XR)Indications:Typ e 2 diabetes mellitus with hemoglobin A1c goal of less than 7.0% (HCC) Take 1 Tablet by mouth in the morning. 90 Tablet 1 3 07/07/20 23 Discontinu ed(Refill) Icosapent Ethyl 1 GM Oral Capsule (Vascepa) Take 2 Capsules by mouth 2 times a day with morning and evening meals. Swallow capsules whole, do not open or break. 360 Capsule 3 3 07/20/20 Discontinu ed(Refill) oxyCODONE HCl 5 MG Oral Tablet (Oxy IR)Indications:Mul tiple myeloma in relapse (HCC) Take 1 Tablet by mouth every 4 hours as needed for Pain, Breakthrough. 30 Tablet 0 3 08/18/20 Discontinu ed(Refill) levoFLOXacin 750 MG Oral Tablet (Levaquin)Indicati ons:SOB (shortness of breath),Subacute cough Take 1 Tablet by mouth in the morning for 5 days. until gone.. 5 Tablet 0 3 07/08/20 Discontinu ed(Medicat ion/Dose Changed) Dexcom G7 Sensor Use as directed to check blood sugars daily. Change every 10 days. DxE11.9. 3 Each 3 3 08/22/20 Discontinu ed(Refill) documented as of this encounter [...] encounter Miscellaneous Notes * Telephone Encounter - Kate Dominguez OSA - 06/29/2023 4:03 PM EDT Follow-up disposition: Return in about 3 months (around 09/29/2023). Check out comments: Please schedule with Tim if possible documented in this encounter Plan of Treatment Upcoming Encounters Date Type Department Care Team (Late st Contact Info) Description 10/04/2023 11:00 AM EST Office Visit Infectious Disease [facility] [place] [address] [place] [address] [place] [address] Jabari Vivar MD [address] [facility] [place] [address] 10/11/2023 1:00 PM EST Telemedicine H[facility]ology [facility] [address] [facility] [place] [address] Rosalio Amaral MD [address] [place] [address] 10/12/2023 10:40 AM EST Anticoagulation Pharmacy, [address] [place] [address] [place] [address] 10/24/2023 1:30 PM EST Office Visit Urology, [facility] 132 [facility] [place] [address] Devyn Paniagua MD [address] [facility] [address] [place] [address] 10/25/2023 2:30 PM EST [facility] Visit [facility] [address] [facility] [place] [address] Sulma Seth RN 132 [facility] [place] [address] 11/10/2023 9:00 AM EST [facility] [address] [place] [address] Rosalio Amaral MD [address] [place] [address] 11/23/2023 9:40 AM EDT Office Visit Nephrology, [facility]la Renae [address] [place] [address] Armando Cook MD [address] [place] [address] 12/09/2023 3:30 PM EDT Office Visit Hematology [facility]cology [facility] [place] Tyree U[facility] [address] [place] [address] Rosalio Amaral MD [address] [facility] [place] [address] 12/15/2023 8:30 AM EDT Office Visit Cardiology, [facility] [address] [place] [address] Beth Gibbs CRNP [address] [place] [address] 03/08/2024 9:00 AM EDT Office Visit Cardiology [address] [place] [address] Tim Ruiz PA-C [address] [place] [address] Health Maintenance Due Date Last Done Comments HIV Screening 1985 Hepatitis C Screening 01/29/1988 Cologuard 2015 Fecal Occult Blood Test 2015 Sigmoidoscopy 2015 COVID-19 Vaccine (3 - Pfizer risk series) 11/03/2021 10/06/2021, 06/23/2021 Depression Screening 01/05/2022 01/05/2021 Diabetic Foot Exam 12/14/2022 12/14/2021, 0 10/15/2020, 06/25/2019 HbA1c 01/05/2024 07/06/2023, 08/0 11/2022, 03/29/2023, Additional history exists GFR 03/22/2024 09/22/2023, 1204/2023, 08/22/2023, Additional history exists Pneumococcal Vaccine: Pediatrics (0 to 5 Years) and At-Risk Patients (6 to 64 Years) (3 - PPSV23 or PCV20) 05/22/2024 05/13/2020, 05/22/2019 Diabetic Eye Exam 07/11/2024 07/11/2023, , 06/29/2021, Additional history exists TSH 07/25/2024 07/25/2023, 03/12, 01/31/2023, Additional history exists CKD PHOS USE SMARTSET 63471 08/16/2024 12/0 01/2023, 07/25/2023, 07/06/2023, Additional history exists Albumin/Creatinine Ratio 09/08/2024 023, 06/22/2023, 05/27/2023, Additional history exists CKD HGB USE SMARTSET 59171 09/08/202409/08, 09/08/2023, 08/16/2023, Additional history exists DTaP,Tdap,and [...] this encounter Medical Devices Implanted Type Area Java Lead Developer Device Identifier Shelf Expiration Date Model / Serial / Lot Port Power Mri W/8fr Cath - [id number] Implanted:Qty: 1 on 09/26/2020 by Simone Michelle MD at OR [facility] Right: Chest CR BARD : PERIPHERAL VASCULAR 10/12/2021 [id number] / / [id number] Description:right IJ Lens Intraoc 19.0 - [id number] - [id number] Implanted:Qty: 1 on 02/03/2021 by Chris Sexton MD at OR [facility] Right: Eye [employer]OM[employer] 09/11/2025 [id number] / [id number] / Lens Intraoc 19.0 - [id number] - [id number] Implanted:Qty: 1 on 02/24/2021 by Chris Sexton MD at OR [facility] Left: Eye BAUSCH & LOMB 10/12/2025 [id number] / [id number] / [id number] System Urolift - [id number] Implanted:Qty: 3 on 03/17/2023 by Devyn Paniagua MD at OR [facility] N/A: Urethra [employer] 11/03/2023 [id number] / / [id number] documented as of this encounter Additional Health Concerns Infection Onset Date Last Indicated Resolved Time Gastrointestinal Rule-Out 09/14/2023 09/14/2023 10:40 PM EST C. difficile Rule-Out 09/14/2023 09/14/20232023 2:52 PM EST Salmonella 09/14/2023 09/14/2023 documented as of this [...] and were consensually agreed upon. Care Teams Distribution Dispatcher Relationship Specialty Start Date End Date Jaime Garcia MD [address] [place] [address] [place] [phone] PCP - General Family Medicine 10/15/20 documented as of this encounter
--- OUTSIDE RECORDS SUMMARY | 2023-12-07 07:59 | External Medical Summary | Summary of Care ---
Author Name Unknown Organization [facility] Address [address] [place] [address] Phone [phone] Care Team Providers Care Resistor Coater Name Role Phone Jaime Garcia MD Primary Care Provide r Encounter Details Date Type Department Care Team (Late st Contact Info) Description 09/29/2023 Population Health External Data Unspecified Department Allergies Active Allergy Reactions Criticality Noted Date [...] Information Patient taking differently: 50 mcg Oral [id number], Reported on 04/14/2023 Warfarin Sodium 2.5 MG [...] hemoglobin A1c goal of less than 7.0% ([facility]) Take 2 Tablets by mouth in the morning. 180 Tablet 1 3 Active Pen [place] 32G X 4 MM Use as directed. [...] disease, without long-term current use of insulin ([facility]) Use as directed to check [...] swelling, wt gain, Reported on 09/09/2023 Nystatin 400928 UNIT/ML Mouth/Throat SuspensionIndicatio ns:Multiple myeloma in relapse [...] 11:00 AM EST Office Visit Infectious Disease [address] [address] Jabari Vivar MD [address] [place] [address] 10/11/2023 1:00 PM EST Telemedicine [facility] [place] [address] [facility] [place] [address] Rosalio Amaral MD [address] [facility] [place] [address] 10/12/2023 10:40 AM EST Anticoagulation Pharmacy, [address] [place] [address] [place] [address] 10/24/2023 1:30 PM EST Office Visit Urology, [facility] 132 [facility] [place] [address] Devyn Paniagua MD [address] [place] [address] [place] [address] 10/25/2023 2:30 PM EST [facility] [address] [place] [address] Sulma Seth, BOBBY [address] [place] [address] 11/10/2023 9:00 AM EST Office Visit H[facility]ology [facility] Tyree Jordan [address] [place] [address] Rosalio Amaral MD [address] [place] [address] 11/23/2023 9:40 AM EDT Office Visit Nephrology, [facility] 200 [facility] [place] [address] Armando Cook MD [address] [place] [address] 12/09/2023 3:30 PM EDT [facility] [address] [place] [address] Rosalio Amaral MD [address] [place] [address] 12/15/2023 8:30 AM EDT Office Visit Cardiology, [facility] [address] [place] [address] Beth Gibbs CRNP [address] [place] [address] 03/08/2024 9:00 AM EDT Office Visit Cardiology [address] [place] [address] Tim Ruiz PA-C [address] [place] [address] Health Maintenance Due Date Last Done Comments HIV Screening 1985 Hepatitis C Screening 01/29/1988 Cologuard 2015 Fecal Occult Blood Test 2015 Sigmoidoscopy 2015 COVID-19 Vaccine (3 - Pfizer risk series) 11/03/2021 10/06/2021, 06/23/2021 Depression Screening 01/05/2022 01/05/2021 Diabetic Foot Exam 12/14/2022 12/14/2021, 0 10/15/2020, 06/25/2019 HbA1c 01/05/2024 07/06/2023, 08/11/2022, 03/29/2023, Additional history exists GFR 03/22/2024 09/22/2023, 08/13, 08/22/2023, Additional history exists Pneumococcal Vaccine: Pediatrics (0 to 5 Years) and At-Risk Patients (6 to 64 Years) (3 - PPSV23 or PCV20) 05/22/2024 05/13/2020, 05/22/2019 Diabetic Eye Exam 07/11/2024 07/11/2023, , 06/29/2021, Additional history exists TSH 07/25/2024 07/25/2023, 03/12, 01/31/2023, Additional history exists CKD PHOS USE SMARTSET 91200 08/16/2024 12/0 01/2023, 07/25/2023, 07/06/2023, Additional history exists Albumin/Creatinine Ratio 09/08/2024 023, 06/22/2023, 05/27/2023, Additional history exists CKD HGB USE SMARTSET 58320 09/08/202409/08, 09/08/2023, 08/16/2023, Additional history exists DTaP,Tdap,and [...] this encounter Medical Devices Implanted Type Area Windows Server Architect Device Identifier Shelf Expiration Date Model / Serial / Lot Port Power Mri W/8fr Cath - [id number] Implanted:Qty: 1 on 09/26/2020 by Simone Michelle MD at OR [facility] Right: Chest CR BARD : PERIPHERAL VASCULAR 10/12/2021 [id number] / / [id number] Description:right IJ Lens Intraoc 19.0 - [id number] - [id number] Implanted:Qty: 1 on 02/03/2021 by Chris Sexton MD at OR [facility] Right: Eye [employer]CH [employer]OM[employer] 09/11/2025 [id number] / [id number] / Lens Intraoc 19.0 - [id number] - [id number] Implanted:Qty: 1 on 02/24/2021 by Chris Sexton MD at OR [facility] Left: Eye BAUSCH & LOMB 10/12/2025 [id number] / [id number] / [id number] System Urolift - [id number] Implanted:Qty: 3 on 03/17/2023 by Devyn Paniagua MD at OR [facility] N/A: Urethra [employer] 11/03/2023 [id number] / / [id number] documented as of this encounter Additional Health [...] and were consensually agreed upon. Care Teams Resistor Coater Relationship Specialty Start Date End Date Jaime Garcia MD [address] [place] [address] [place] [phone] PCP - General Family Medicine 10/15/20 documented as of this encounter
--- OUTSIDE RECORDS SUMMARY | 2023-12-07 08:00 | External Medical Summary | Summary of Care ---
Author Name Unknown Organization [facility] Address [address] [place] [address] Phone [phone] Care Team Providers Care Circular Knitter Name Role Phone Jaime Garcia MD Primary Care Provide r Reason for Visit * Reason Comments Follow Up Encounter Details Date Type Department Care Team (Late st Contact Info) Description 09/13/2023 9:00 AM EST Office Visit Cardiology, [facility] [address] [facility] [place] [address] Beth Salter CRNP [address] [facility] [place] [address] Cardiac amyloidosis (HCC)*; Chronic diastolic congestive heart failure (HCC); Coronary artery disease involving nightmute coronary artery of nightmute heart without angina pectoris; PAF (paroxysmal atrial fibrillation) (HCC); Hyperlipidemia with target LDL less than 70; Dyslipidemia, goal LDL below 70; Autonomic orthostatic hypotension; Chronic heart failure with preserved ejection fraction (HCC); Vomiting and diarrhea Allergies Active Allergy Reactions Criticality Noted Date Comments Atorvastatin Muscle pain High 03/30/2019 Ezetimibe Muscle pain High 01/25/2020 documented as of this encounter (statuses as of 09/18/2023) Medications Medication Sig Dispensed Refills Start Date [...] hemoglobin A1c goal of less than 7.0% ([facility]) Use as directed daily. Test once daily DxE11.9 100 Strip 5 1 Active LancetsIndications :Type 2 diabetes mellitus with hemoglobin A1c goal of less than 7.0% ([facility]) Test once daily DxE11.9. 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 180 Tablet 1 3 Active Insulin Glargine Solostar 100 UNIT/ML Subcutaneous Solution Pen-injector (Lantus SoloStar) Inject 10 Units under the skin every evening. 15 mL 3 3 Active Additional Information Patient taking differently:10 Units Subcutaneous [id number],On hold until seen by MTM 09/14, Reported on 09/09/2023 Pen Roberta 32G X 4 MM Use as directed. [...] the morning. 100 Tablet 3 3 Active Nystatin 767005 UNIT/ML Mouth/Throat SuspensionIndicati ons:Multiple myeloma in relapse [...] Tablet 3 2 09/14/19 24 Discontinu ed(Refill) documented as of this encounter (statuses as of 09/18/2023) Active Problems Problem Noted Date Diagnosed Date [...] as of this encounter (statuses as of 09/18/2023) Resolved Problems Problem Noted Date Diagnosed Date [...] as of this encounter (statuses as of 09/18/2023) Immunizations Name Administration Dates Next Due COVID-19, [...] by cardiac pAF on amiodarone and coumadin [id number] 3 (CHF, CAD, DM) CKD stage 3 [...] had an episode of shortness of breath thatwas resolved with increasing his home dose of torsemide. Took extra Torsemide daily for 1 week, back down to 1 x 20 mg tablet daily [...] ADVANCE DIRECTIVE INFORMATION Multiple myeloma without remission ([facility]) C90.00 Organ-limited amyloidosis ([facility]) E85.4 PAF (paroxysmal atrial fibrillation) ([facility]) I48.0 Anxiety F41.9 Type 2 diabetes mellitus with hemoglobin A1c goal of less than 7.0% ([facility]) E11.9 Hypogammaglobulinemia ([facility]) D80.1 Lambda light chain myeloma ([facility]) C90.00 AL amyloidosis ([facility]) E85.81 DEBBY (obstructive sleep apnea) G47.33 Statin intolerance Z78.9 Peripheral neuropathic pain M79.2 Current chronic use of systemic steroids Z79.52 Hyperlipidemia with target LDL less than 70 E78.5 Coronary artery disease, non-occlusive I25.10 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 100 Tablet 3 Nystatin 170740 UNIT/ML Mouth/Throat Suspension Swish and swallow 5 [...] by MTM 09/14) 15 mL 3 Pen Roberta 32G X 4 MM Use as directed. [...] performed by Simone Michelle MD at OR [facility] COLONOSCOPY, DIAGNOSTIC (RECTUM) 09/09/2021 normal bx / COLONOSCOPY FLEXIBLE PROXIMAL DIAGNOSTIC performed by Philip Graham MD at ENDOSCOPY [facility] CYSTOURETHROSCOPY, W/ TRANSPROSTATIC IMPLANT N/A 03/17/2023 CYSTOURETHROSCOPY, WITH INSERTION OF PERMANENT ADJUSTABLE TRANSPROSTATI IMPLANT; SINGLE IMPLANT performed by Devyn Paniagua MD at OR [facility] EGD, FLEXIBLE, DIAGNOSTIC 10/15/2019 normal bx / ESOPHAGOGASTRODUODENOSCOPY (EGD), FLEXIBLE, TRANSORAL, DIAGNOSTIC performed by Mellissa Mari MD at ENDOSCOPY [facility] EGD, FLEXIBLE, DIAGNOSTIC N/A 05/06/2023 esophageal plaques, biopsies confirm rebeca/EGD/MN EGD, W/ENDOSCOPIC US N/A 05/06/2023 multiple cystic lesion pancreatic head and body/EUS/MN INFORMATION vasectomy reversal INFORMATION status post autologous stem cell transplantation in 2015 - per cardiology note INSER TUNN ACC DEV;5 YRS/OLDER N/A 09/26/2020 INSERT TUNNELED CENTRAL VENOUS ACCESS WITH SUBQ PORT performed by Simone Michelle MD at OR [facility] MRI L SPINE W WO CONTRAST [place], was told he had a herniated disc REMOVE CATARACT, INSERT LENS PROSTH Right 02/03/2021 RIGHT EXTRACAPSULAR CATARACT REMOVAL WITH INTRAOCULAR LENS performed by Chris Sexton MD at OR [facility] REMOVE CATARACT, INSERT LENS PROSTH Left 02/24/2021 LEFT EXTRACAPSULAR CATARACT REMOVAL WITH INTRAOCULAR LENS performed by Chris Sexton MD at OR [facility] VASECTOMY 1999 Review of patient's allergies indicates: [...] No symptoms were reported. ECGS: 08/27/23 at [facility] NSR 72 bpm QTc 466 ms 08/26/23 at [facility] NSR 76 bpm QTc 414 ms 08/16/23 at [facility] NSR 77 bpm QTc 491 ms 08/15/23 at [facility] NSR 72 bpm QTc 512 ms 08/13/23 at [facility] NSR 80 bpm QTc 493 ms 08/12/23 at [facility] NSR 76 bpm QTc 508 ms 08/11/23 at [facility] NSR 73 bpm QTc 471 ms 08/10/23 at [facility] NSR 79 bpm QTc 495 ms 08/09/23 at [facility] NSR 775 bpm QTc 513 ms 08/08/23 at [facility] NSR 82 bpm QTc 537 ms 06/25/23 at [facility] NSR 76 bpm QTc 500 ms [...] IgM 40 - 230 mg/dL <5 (L) [place] Free Light Chains, Serum 3.30 - 19.40 mg/L 7.86 [place] Lambda Free Light Chains Ratio 0.26 - [...] Diastolic, NYHA class II pAF, on coumadin [id number] 3 ( CHF, CAD, DM) NSVT on zio patch Nonobstructive coronary artery disease by cardiac HLD Gastritis Neuropathy Hospitalized with hypotension Jul/Aug 2023, increased midodrine to 20 mg TID [...] work tomorrow when he is at the [facility] clinic for his INR check for [...] delivery, and documentation ofthe care provided to eJrardo Ochoa Jr. excluding any time spent in the performance of separately billed services. [facility], [address] [address] This chart was completed in part utilizing [employer] Speech Voice Recognition Software. Grammatical errors, random [...] Reason for Visit: 3M f/u Interim Hospitalization(s): [facility] Problems/Concerns: Midodrine increased to 20 mg TID - occasionally only take 2x d/t BP. Feels dizzy, "off" today. Diarrhea on and off x1 week. Chest Pain/SOB: Denies CP or worsening SOB. [facility] Discussed: No [facility] [employer] [facility] is a way you can talk to [...] Care Team (Late st Contact Info) Description 09/27/2023 8:00 AM EST Appointment Radiology, [address] [place] [phone] 09/28/2023 11:30 AM EST Anticoagulation Pharmacy, [address] [place] [id number] [place] [address] 09/28/2023 11:40 AM EST Pharmacy Pharmacy, [address] [place] [address] [place] [address] 10/11/2023 1:00 PM EST [facility]medicine [facility] Tyree UGARTE [address] [facility] [place] [address] Rosalio Amaral MD [address] [facility] [place] [address] 10/24/2023 1:30 PM EST Office Visit Urology, [facility] [address] [facility] [place] [address] Devyn Paniagua MD [address] [address] [place] [address] 10/25/2023 2:30 PM EST [facility] Visit [facility] [address] [place] [address] Sulma Seth, BOBBY [address] [place] [address] 11/10/2023 9:00 AM EST Office [facility] Tyree Jordan [address] [place] [address] Rosalio Amaral MD [address] [place] [address] 11/23/2023 9:40 AM EDT Office Visit Nephrology, Carla Renae [address] [place] [address] Armando Cook MD [address] [place] [address] 12/09/2023 3:30 PM EDT Office [facility] Tyree UGARTE [address] [place] [address] Rosalio Amaral MD [address] [place] [address] 12/15/2023 8:30 AM EDT Office Visit Cardiology, [facility] [address] [place] [address] Beth Gibbs CRNP [address] [place] [address] 03/08/2024 9:00 AM EDT Office Visit Cardiology [address] [place] [address] Tim Ruiz PA-C [address] [place] [address] Pending Results Name Type Priority Associated Diagnoses Date /Time GASTROINTESTINAL PATHOGEN PANEL, STOOL Lab Routine Cardiac amyloidosis (HCC) Chronic diastolic congestive heart failure (HCC) Coronary artery disease involving nightmute coronary artery of nightmute heart without angina pectoris PAF (paroxysmal atrial fibrillation) (HCC) Hyperlipidemia with target LDL less than 70 Dyslipidemia, goal LDL below 70 Autonomic orthostatic hypotension Chronic heart failure with preserved ejection fraction (HCC) Vomiting and diarrhea 09/14/2023 9:19 AM EST Scheduled Orders Name Type Priority Associated Diagnoses Orde r Schedule COMPREHENSIVE METABOLIC PANEL Lab Routine Cardiac amyloidosis (HCC) Chronic diastolic congestive heart failure (HCC) Coronary artery disease involving nightmute coronary artery of nightmute heart without angina pectoris PAF (paroxysmal atrial fibrillation) (HCC) Hyperlipidemia with target LDL less than 70 Dyslipidemia, goal LDL below 70 Autonomic orthostatic hypotension Chronic heart failure with preserved ejection fraction (HCC) Vomiting and diarrhea Expected: 09/13/2023, Expires: 09/13/2024 GASTROINTESTINAL PATHOGEN PANEL, STOOL Lab Routine Cardiac amyloidosis (HCC) Chronic diastolic congestive heart failure (HCC) Coronary artery disease involving nightmute coronary artery of nightmute heart without angina pectoris PAF (paroxysmal atrial [...] Additional history exists CKD PHOS USE SMARTSET 88312 08/16/2024 12/0 01/2023, 07/25/2023, 07/06/2023, Additional history exists Albumin/Creatinine Ratio 09/08/2024 023, 06/22/2023, 05/27/2023, Additional history exists CKD HGB USE SMARTSET 43008 09/08/202409/08, 09/08/2023, 08/16/2023, Additional history exists DTaP,Tdap,and [...] this encounter Medical Devices Implanted Type Area Fur Storage Clerk Device Identifier Shelf Expiration Date Model / Serial / Lot Port Power Mri W/8fr Cath - [id number] Implanted:Qty: 1 on 09/26/2020 by Simone Michelle MD at OR [facility] Right: Chest CR BARD : PERIPHERAL VASCULAR 10/12/2021 [id number] / / [id number] Description:right IJ Lens Intraoc 19.0 - [id number] - [id number] Implanted:Qty: 1 on 02/03/2021 by Chris Sexton MD at OR [facility] Right: Eye [employer]OM[employer] 09/11/2025 [id number] / [id number] / Lens Intraoc 19.0 - [id number] - [id number] Implanted:Qty: 1 on 02/24/2021 by Chris Sexton MD at OR [facility] Left: Eye [employer]OM[employer] 10/12/2025 [id number] / [id number] / [id number] System Urolift - [id number] Implanted:Qty: 3 on 03/17/2023 by Devyn Paniagua MD at OR [facility] N/A: Urethra [employer] 11/03/2023 [id number] / / [id number] documented as of this encounter Results * CLOSTRIDIUM DIFFICILE, PCR (09/14/2023 9:19 AM EST) Stool Consistency Liquid 09/14/2023 2:52 PM EST [facility] Clostridium difficile Result Negative. No C. difficile toxin B gene DNA detected by PCR (Amplified Probe). Negative 09/14/2023 2:52 PM EST [facility] Stool Stool specimen / Unknown Non-blood Collection / Unknown 09/14/2023 9:19 AM EST 09/14/2023 9:19 AM EST Beth BLUE LAB MICRO - GENERAL ORDERABLES [facility] [address] [place] [address] documented in this encounter Visit Diagnoses Diagnosis Cardiac amyloidosis (HCC)- Primary Other amyloidosis Chronic diastolic congestive heart failure (HCC) Chronic diastolic heart failure Coronary artery disease involving nightmute coronary artery of nightmute heart without angina pectoris PAF (paroxysmal atrial [...] and were consensually agreed upon. Care Teams Circular Knitter Relationship Specialty Start Date End Date Jaime Garcia MD [address] [place] [address] [place] [address] PCP - General Family Medicine 10/15/20 documented as of this encounter
--- OUTSIDE RECORDS SUMMARY | 2023-12-07 08:00 | External Medical Summary ---
Author Name Unknown Address Unknown Organization K01:[facility] - [address] [facility] [address] Laboratory Report Ordering Provider Test Date Status BINH KLEIN 09/22/2023 09:36:53 Final Observation Date Value Abnormality Reference (Units ) Status BUN 09/22/2023 09:36:53 8 6-20 (mg/dL) Final Creatinine 09/22/2023 09:36:53 1.4 Above high normal 0.6-1.2 (mg/dL) Final Glomerular filtration rate/1.73 sq M.predicted [Volume Rate/Area] in Serum, Plasma or Blood by Creatinine-based formula (CKD-EPI) 09/22/2023 09:36:53 61 >=60 (mL/min) Final eGFR is calculated based on the CKD-EPI 2020 equation SODIUM 09/22/2023 09:36:53 138 135-146 (m mol/L) Final Potassium 09/22/2023 09:36:53 4.4 3.5-5.1 (m mol/L) Final Cl 09/22/2023 09:36:53 99 98-107 (mm ol/L) Final CO2 09/22/2023 09:36:53 28 22-32 (mmo l/L) Final Anion gap 09/22/2023 09:36:53 11 7-15 (mmol /L) Final Glucose 09/22/2023 09:36:53 88 70-120 (mg /dL) Final Albumin 09/22/2023 09:36:53 3.6 Below low normal 3.8 -5.0 (g/dL) Final AST (Aspartate aminotransferase) 09/22/2023 09:36:53 20 10-50 (U/L) Fin al Alk Phos 09/22/2023 09:36:53 107 35-130 (U/ L) Final Bilirubin, Total 09/22/2023 09:36:53 0.3 <=1 .2 (mg/dL) Final Calcium 09/22/2023 09:36:53 8.4 8.4-10.2 ( mg/dL) Final Protein 09/22/2023 09:36:53 5.2 Below low normal 6.0 -8.3 (g/dL) Final ALT (Alanine aminotransferase) 09/22/2023 09:36:53 14 10-50 (U/L) Renny hickman Performing Location [facility] - [address] [facility] [address]
--- OUTSIDE RECORDS SUMMARY | 2023-12-07 08:00 | External Medical Summary | Summary of Care ---
Author Name Unknown Organization [facility] Address [address] [place] [address] Phone [phone] Care Team Providers Care Loom Doffer Name Role Phone Jaime Garcia MD Primary Care Provide r Reason for Visit * Reason Onset Date Comments Hospital Follow-Up Hospital Follow-Up 09/22/2023 Encounter Details Date Type Department Care Team (Late st Contact Info) Description 09/22/2023 9:20 AM EST Office Visit Family Medicine [address] [place] [phone] Umu Mcdermott PA-C [address] [place] [address] [place] [phone] Salmonella enteritis*; Hospital discharge follow-up Allergies Active Allergy Reactions Criticality Noted Date Comments Atorvastatin Muscle pain High 03/30/2019 Ezetimibe Muscle pain High 01/25/2020 documented as of this encounter (statuses as of 09/22/2023) Medications Medication Sig Dispensed Refills Start Date [...] hemoglobin A1c goal of less than 7.0% ([facility]) Use as directed daily. Test once daily DxE11.9 100 Strip 03/02/20 Active LancetsIndications :Type 2 diabetes mellitus with hemoglobin A1c goal of less than 7.0% ([facility]) Test once daily DxE11.9. 100 Each 03/02/20 Active Albuterol Sulfate HFA 108 (90 Base) MCG/ACT Inhalation Aerosol SolutionIndication s:Acute bronchitis, antibiotics not indicated Inhale 2 Puffs by mouth every 6 hours as needed for Cough or Shortness of Breath. 54 g 1 06/30/20 21 Active Acyclovir 400 MG Oral Tablet (Zovirax)Indicatio ns:Lambda light chain myeloma ([facility]) Take one tablet once daily [...] (Decadron)Indicati ons:Multiple myeloma not having achieved remission ([facility]) 5 tabs 2 times monthly 10 Tablet 5 10/25/19 23 Active Polyethylene Glycol 3350 17 GM Oral Packet Take 1 Packet by mouth daily as needed. 0 Active oxyCODONE-Acetamin ophen 5-325 MG Oral Tablet (Percocet) Take 1 Tablet by mouth every 6 hours as needed for Pain, Severe. 10 Tablet 0 03/17/20 23 Active Levothyroxine Sodium 50 MCG Oral Tablet (Levoxyl) TAKE 1 TABLET BY MOUTH DAILY AT LEAST 30 MINUTES PRIOR TO FIRST MEAL OF THE DAY OR OTHER MEDICATIONS 90 Tablet 3 01/12/20 23 024 Active Additional Information Patient taking differently: 50 mcg Oral [id number], Reported on 04/14/2023 Warfarin Sodium 2.5 MG Oral Tablet (Coumadin)Indicati ons:Atrial fibrillation, unspecified type (HCC),Anticoagulat ion management encounter,intermediate card tender current use of anticoagulant therapy,Paroxysmal atrial [...] hemoglobin A1c goal of less than 7.0% ([facility]) Take 2 Tablets by mouth in the morning. 180 Tablet 1 07/11/20 Active Insulin Glargine Solostar 100 UNIT/ML Subcutaneous Solution Pen-injector (Lantus SoloStar) Inject 10 Units under the skin every evening. 15 mL 3 07/19/20 Active Additional Information Patient taking differently:10 Units Subcutaneous [id number],On hold until seen by MTM 09/14, Reported on 09/09/2023 Pen [place] 32G X 4 MM Use as directed. [...] Tablet (Oxy IR)Indications:Mul tiple myeloma in relapse ([facility]) Take 1 Tablet by mouth [...] disease, without long-term current use of insulin ([facility]) Use as directed to check blood sugars daily. Change every 10 days 9 Each 3 09/01/20 Active Midodrine HCl 10 MG Oral Tablet (Proamatine)Indica tions:takes 1-3 tabs depending on bp as needed Take 2 tablet shortly before or upon rising in the morning, at midday, and in the late afternoon (not later than 6 PM) 600 Tablet 3 09/02/20 23 Active Torsemide 10 MG Oral Tablet (Demadex)Indicatio ns:takes extra tab for swelling, wt gain Take 1 Tablet by mouth in the morning every other day. 100 Tablet 3 09/02/20 23 Active Additional Information Patient taking differently:10 mg Oral Daily(AM),2 tabs daily, Indications: takes extra tab for swelling, wt gain, Reported on 09/09/2023 Nystatin 611701 UNIT/ML Mouth/Throat SuspensionIndicati ons:Multiple myeloma in relapse [...] by mouth in the morning. 0 Active Potassium Chloride ER 10 MEQ Oral Tablet Extended ReleaseIndications :Chronic diastolic congestive heart failure (HCC) Take 1 Tablet by mouth in the morning. 100 Tablet 3 09/02/20 23 024 Discontinued documented as of this encounter (statuses as of 09/22/2023) Active Problems Problem Noted Date Diagnosed Date [...] as of this encounter (statuses as of 09/22/2023) Resolved Problems Problem Noted Date Diagnosed Date [...] as of this encounter (statuses as of 09/22/2023) Immunizations Name Administration Dates Next Due COVID-19, [...] Sign Reading Time Taken Comments Blood Pressure 100/60 09/22/2023 9:08 AM EST Pulse 79 09/22/2023 9:08 AM EST Temperature 36.6 C (97.8 F) 09/22/2023 9:08 AM ES T Respiratory Rate - - Oxygen Saturation 98% 09/22/2023 9:08 AM EST Inhaled Oxygen Concentration - - Weight 70.3 kg (155 lb) 09/22/2023 9:08 AM EST Height - - Body Mass Index 22.89 09/08/2023 10:10 AM EST documented in this encounter Progress Notes * Umu Mcdermott PA-C - 09/22/2023 9:11 AM EST Nursing Notes: Dipika Lindsay LPN 09/22/23 0911 Signed Chief Complaint Patient presents with Hospital Follow-Up [facility] hospital F/u Adm date:09/15/2023 Discharge date:09/19/2023 Dx: Salmonella enteritis Tx : 4 wk IV ceftriaxone Past treatment cipro and bactrim ID apt on 10/04/2023 The patient has been properly identified by confirmation of name and date of . Pt here today for hospital FU. Pt has been admitted several times over the past month and a half for salmonella. Most recent hospitalization was 09/15/23-09/19/23. He went back to ER with watery stools. Stool tested positive for salmonella again. He is currently on IV rocephin. Has formed stools and some diarrhea. He is to have IV rocephin for 4 weeks as an outpt. He is scheduled to see ID in a couple of weeks. Blood cultures were negative in hospital. Pt is also currently on chemo for multiple myeloma. Pt has some nausea. He isn't eating or drinking very well. He just started compazine and it has been helping more than the zofran. He will try to increase fluids and try to eat something today. Review of patient's allergies indicates: Allergen Reactions Atorvastatin Muscle pain Zetia [Ezetimibe] Muscle pain Current Outpatient Medications Medication Sig Dispense Refill [...] by MTM 09/14) 15 mL 3 Pen [place] 32G X 4 MM Use as directed. [...] morning. 2 tabs daily.) 100 Tablet 3 Nystatin 611915 UNIT/ML Mouth/Throat Suspension Swish and swallow 5 [...] 1 Tablet by mouth in the morning. No current facility-administered medications for this visit. [...] sleep apnea Orthostatic hypotension Tobacco use disorder Social History Socioeconomic History Marital status: Spouse [...] on file Housing Stability: Not on file O:Blood pressure 100/60, pulse 79, temperature 36.6 C (97.8 F), temperature source Tympanic, weight 70.3 kg (155 lb), SpO2 98%. GENERAL: alert and no distress NECK: supple, no adenopathy HEART: regular rate & rhythm, no murmur, and no gallops LUNGS: chest symmetric with normal AP diameter, no chest deformities noted, no chest wall tenderness, lungs clear to auscultation A:Salmonella enteritis (Primary) - DISCH MED RECON CUR MED LIS - BASIC METABOLIC PANEL; Future; Expected date: 09/22/2023 Hospital discharge follow-up Will check BMP today. Keep ID appt. Any questions/problems, please call. Will check on case preparer and liner. Any questions/problems, please call. If anything changes, worsens, develops new sx, please call [facility]. Follow Up: Return if symptoms worsen or fail to improve. Umu Mcdermott PA-C documented in this encounter Nursing Notes * Dipika Lindsay LPN - 09/22/2023 9:00 AM EST Chief Complaint Patient presents with Hospital Follow-Up [facility] hospital F/u Adm date:09/15/2023 Discharge date:09/19/2023 Dx: Salmonella enteritis Tx : 4 wk IV ceftriaxone Past treatment cipro and bactrim ID apt on 10/04/2023 The patient has been properly identified by confirmation of name and date of . documented in this encounter Plan of Treatment Upcoming Encounters Date Type Department Care Team (Late st Contact Info) Description 09/27/2023 8:00 AM EST Appointment Radiology, [address] [place] [phone] 09/28/2023 11:30 AM EST Anticoagulation Pharmacy, [address] [place] [address] [place] [address] 09/28/2023 11:40 AM EST Pharmacy Pharmacy, [address] [place] [address] [place] [address] 10/04/2023 11:00 AM EST Office Visit Infectious Disease [facility] [address] [place] [phone] Jabari Vivar MD [address] [place] [address] 10/11/2023 1:00 PM EST Telemedicine [facility] Tyree UGARTE [address] [facility] [place] [address] Rosalio Amaral MD [address] [facility] [place] [address] 10/24/2023 1:30 PM EST Office Visit Urology, [facility] [address] [place] [address] Devyn Paniagua MD [address] [place] [address] 10/25/2023 2:30 PM EST [facility] Visit [facility] [address] [place] [address] Sulma Seth RN 132 [place] [address] 11/10/2023 9:00 AM EST Office Visit [facility] Tyree UGARTE [address] [facility] [place] [address] Rosalio Amaral MD [address] [place] [address] 11/23/2023 9:40 AM EDT Office Visit Nephrology, [facility] [address] [place] [address] Armando Cook MD [address] [facility] [place] [address] 12/09/2023 3:30 PM EDT Office [facility] [address] [place] [address] Rosalio Amaral MD [address] [place] [address] 12/15/2023 8:30 AM EDT Office Visit Cardiology, [facility] [address] [place] [address] Beth Gibbs CRNP [address] [place] [address] 03/08/2024 9:00 AM EDT Office Visit Cardiology [address] [place] [address] Tim Ruiz PAPageC [address] [place] [address] Health Maintenance Due Date Last Done Comments [...] Additional history exists CKD PHOS USE SMARTSET 25233 08/16/202401/2023, 07/25/2023, 07/06/2023, Additional history exists Albumin/Creatinine Ratio 09/08/2024 023, 06/22/2023, 05/27/2023, Additional history exists CKD HGB USE SMARTSET 97877 09/08/202409/08, 09/08/2023, 08/16/2023, Additional history exists DTaP,Tdap,and [...] this encounter Medical Devices Implanted Type Area Squeak Rattle [employer] Leak Repairer Device Identifier Shelf Expiration Date Model / Serial / Lot Port Power Mri W/8fr Cath - [id number] Implanted:Qty: 1 on 09/26/2020 by Simone Michelle MD at OR [facility] Right: Chest CR BARD : PERIPHERAL VASCULAR 10/12/2021 [id number] / / [id number] Description:right IJ Lens Intraoc 19.0 - [id number] - [id number] Implanted:Qty: 1 on 02/03/2021 by Chris Sexton MD at OR [facility] Right: Eye [employer]OM[employer] 09/11/2025 [id number] / [id number] / Lens Intraoc 19.0 - [id number] - [id number] Implanted:Qty: 1 on 02/24/2021 by Chris Sexton MD at OR [facility] Left: Eye BAUSCH [employer] LOMB 10/12/2025 [id number] / [id number] / [id number] System Urolift - [id number] Implanted:Qty: 3 on 03/17/2023 by Devyn Paniagua MD at OR [facility] N/A: Urethra [employer] 11/03/2023 [id number] / / [id number] documented as of this encounter Visit Diagnoses Diagnosis Salmonella enteritis- Primary Salmonella gastroenteritis Hospital discharge follow-up Other follow-up examination documented in this encounter Additional Health Concerns [...] and were consensually agreed upon. Care Teams Loom Doffer Relationship Specialty Start Date End Date Jaime Garcia MD [address] [place] [address] [place] [address] PCP - General Family Medicine 10/15/20 documented as of this encounter
--- OUTSIDE RECORDS SUMMARY | 2023-12-07 08:00 | External Medical Summary | Summary of Care ---
Author Name Unknown Organization [facility] Address [address] [place] [address] Phone [phone] Care Team Providers Care Booking Police Officer Name Role Phone Jaime Garcia MD Primary Care Provide r Reason for Visit * Reason Onset Date Comments Test Results 09/26/2023 Encounter Details Date Type Department Care Team (Late st Contact Info) Description 09/26/2023 Telephone Cardiology, [facility] [address] [facility] [place] [address] Beth Gibbs CRNP [address] [facility] [address] Test Results Allergies Active Allergy Reactions Criticality Noted Date Comments Atorvastatin Muscle pain High 03/30/2019 Ezetimibe Muscle pain High 01/25/2020 documented as of this encounter (statuses as of 09/26/2023) Medications Medication Sig Dispensed Refills Start Date [...] than 7.0% ([facility]) Use as directed daily. Test [...] Information Patient taking differently: 50 mcg Oral [id number], Reported on 04/14/2023 Warfarin Sodium 2.5 MG Oral Tablet (Coumadin)Indicatio ns:Atrial fibrillation, unspecified type (HCC),Anticoagulati on management encounter,residential current use of anticoagulant therapy,Paroxysmal atrial fibrillation [...] than 7.0% ([facility]) Take 2 Tablets by mouth in the morning. 180 Tablet 1 3 Active Insulin Glargine Solostar 100 UNIT/ML Subcutaneous Solution Pen-injector (Lantus SoloStar) Inject 10 Units under the skin every evening. 15 mL 3 3 Active Additional Information Patient taking differently:10 Units Subcutaneous [id number],On hold until seen by MTM 09/14, Reported on 09/09/2023 Pen [place] 32G X 4 MM Use as directed. [...] Tablet (Oxy IR)Indications:Mult iple myeloma in relapse ([facility]) Take 1 Tablet by mouth [...] swelling, wt gain, Reported on 09/09/2023 Nystatin 546037 UNIT/ML Mouth/Throat SuspensionIndicatio ns:Multiple myeloma in relapse [...] as of this encounter (statuses as of 09/26/2023) Active Problems Problem Noted Date Diagnosed Date [...] as of this encounter (statuses as of 09/26/2023) Resolved Problems Problem Noted Date Diagnosed Date [...] as of this encounter (statuses as of 09/26/2023) Immunizations Name Administration Dates Next Due COVID-19, [...] encounter Miscellaneous Notes * Telephone Encounter - Angelique Cardona LPN - 09/26/2023 10:23 AM EST ----- Message from SU Lugo sent at 09/26/2023 9:18 AM EST ----- Renal function stable. Continue torsemide 20 mg daily. documented in this encounter Plan of Treatment Upcoming Encounters Date Type Department Care Team (Late st Contact Info) Description 09/28/2023 11:30 AM EST Anticoagulation Pharmacy, [address] [place] [address] [place] [address] 09/28/2023 11:40 AM EST Pharmacy Pharmacy, [address] [place] [address] [place] [address] 10/04/2023 11:00 AM EST Office Visit Infectious [facility] [address] [place] [phone] Jabari Vivar MD [address] [place] [address] 10/11/2023 1:00 PM EST Telemedicine [facility] [address] [facility] [place] [address] Rosalio Amaral MD [address] [facility] [place] [address] 10/24/2023 1:30 PM EST Office Visit Urology, [facility] [address] [facility] [place] [address] Devyn Paniagua MD [address] [place] [address] 10/25/2023 2:30 PM EST [facility] Visit [facility], [facility] [address] [facility] [place] [address] Sulma Seth, RN [address] [facility] [place] [address] 11/10/2023 9:00 AM EST [facility] [address] [place] [address] Rosalio Amaral MD [address] [place] [address] 11/23/2023 9:40 AM EDT Office Visit Nephrology, [facility] [address] [facility] [place] [address] Armando Cook MD [address] [facility] [place] [address] 12/09/2023 3:30 PM EDT [facility] [address] [place] [address] Rosalio Amaral MD [address] [facility] [place] [address] 12/15/2023 8:30 AM EDT Office Visit Cardiology, [facility] [address] [place] [address] Beth Gibbs CRNP [address] [place] [address] 03/08/2024 9:00 AM EDT Office Visit Cardiology [address] [place] [address] Tim Ruiz PA-C [address] [place] [address] Health Maintenance Due Date Last Done Comments [...] Additional history exists CKD PHOS USE SMARTSET 18456 08/16/2024 12/0 01/2023, 07/25/2023, 07/06/2023, Additional history exists Albumin/Creatinine Ratio 09/08/2024 023, 06/22/2023, 05/27/2023, Additional history exists CKD HGB USE SMARTSET 78898 09/08/202409/08, 09/08/2023, 08/16/2023, Additional history exists DTaP,Tdap,and [...] this encounter Medical Devices Implanted Type Area Ticket Taker Ferryboat Device Identifier Shelf Expiration Date Model / Serial / Lot Port Power Mri W/8fr Cath - [id number] Implanted:Qty: 1 on 09/26/2020 by Simone Michelle MD at OR [facility] Right: Chest CR BARD : PERIPHERAL VASCULAR 10/12/2021 [id number] / / [id number] Description:right IJ Lens Intraoc 19.0 - [id number] - [id number] Implanted:Qty: 1 on 02/03/2021 by Chris Sexton MD at OR [facility] Right: Eye BAUSCH [employer] LOMB 09/11/2025 [id number] / [id number] / Lens Intraoc 19.0 - [id number] - [id number] Implanted:Qty: 1 on 02/24/2021 by Chris Sexton MD at OR [facility] Left: Eye BAUSCH & LOMB 10/12/2025 [id number] / [id number] / [id number] System Urolift - [id number] Implanted:Qty: 3 on 03/17/2023 by Devyn Paniagua MD at OR [facility] N/A: Urethra [employer] 11/03/2023 [id number] / / [id number] documented as of this encounter Additional Health [...] and were consensually agreed upon. Care Teams Booking Police Officer Relationship Specialty Start Date End Date Jaime Garcia MD [address] [place] [address] [place] [address] PCP - General Family Medicine 10/15/20 documented as of this encounter
--- OUTSIDE RECORDS SUMMARY | 2023-12-07 08:00 | External Medical Summary | Summary of Care ---
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; PAF (paroxysmal atrial fibrillation) (HCC); Hyperlipidemia with target LDL less than 70; Dyslipidemia, goal LDL below 70; Autonomic orthostatic hypotension; Chronic heart failure with preserved ejection fraction (HCC); Vomiting and diarrhea; Salmonella enteritis Allergies Active Allergy Reactions Criticality Noted Date [...] Oral Tablet (Zovirax)Indication s:Lambda light chain myeloma ([facility]) [...] (Decadron)Indicatio ns:Multiple myeloma not having achieved remission ([facility]) 5 tabs 2 times monthly [...] Information Patient taking differently: 50 mcg Oral [id number], Reported on 04/14/2023 Warfarin Sodium 2.5 MG Oral Tablet (Coumadin)Indicatio ns:Atrial fibrillation, unspecified type (HCC),Anticoagulati on management encounter,long-term current use of anticoagulant therapy,Paroxysmal atrial fibrillation [...] Additional Information Patient taking differently:10 Units Subcutaneous [id number],On hold until seen by MTM 09/14, Reported on 09/09/2023 Pen Ohlman 32G X 4 MM Use as directed. [...] Tablet (Oxy IR)Indications:Mult iple myeloma in relapse ([facility]) Take 1 Tablet by mouth [...] swelling, wt gain, Reported on 09/09/2023 Nystatin 069432 UNIT/ML Mouth/Throat SuspensionIndicatio ns:Multiple myeloma in relapse [...] without remission 06/14/2014 Overview: Dr Rodriges/ [facility] DIRECTIVE INFORMATION 10/13/2006 Overview: No, [...] Description 09/27/2023 8:00 AM EST Appointment Radiology, [address] [place] [phone] 09/28/2023 11:30 AM EST Anticoagulation Pharmacy, [address] [place] [address] [place] [address] 09/28/2023 11:40 AM EST Pharmacy Pharmacy, [address] [place] [address] [place] [address] 10/04/2023 11:00 AM EST Office Visit Infectious Disease [address] [phone] Jabari Vivar MD [address] [place] [address] 10/11/2023 1:00 PM EST Telemedicine Hematology [facility]cology [facility] [place] [address] [facility] [place] [address] Rosalio Amaral MD [address] [facility] [place] [address] 10/24/2023 1:30 PM EST Office Visit Urology, [facility] [address] [facility] [place] [address] Devyn Paniagua MD [address] [place] [address] 10/25/2023 2:30 PM EST [facility] Visit [facility], [facility] [address] [place] [address] Sulma Seth, BOBBY 132 [facility] [place] [address] 11/10/2023 9:00 AM EST Office Visit Hematology [facility]cology [facility] [place] [address] [facility] [place] [address] Rosalio Amaral MD [address] [place] [address] 11/23/2023 9:40 AM EDT Office Visit Nephrology, [facility] [address] [place] [address] Armando Cook MD [address] [place] [address] 12/09/2023 3:30 PM EDT [facility] [address] [place] [address] Rosalio Amaral MD [address] [facility] [place] [address] 12/15/2023 8:30 AM EDT [facility] [address] [place] [address] Beth Gibbs CRNP [address] [place] [address] 03/08/2024 9:00 AM EDT Office Visit Cardiology [address] [place] [address] Tim Ruiz PA-C [address] [place] [address] Pending Results Name Type Priority Associated Diagnoses Date /Time COMPREHENSIVE METABOLIC PANEL Lab STAT Cardiac amyloidosis (HCC) Chronic diastolic congestive heart failure (HCC) 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 PAF (paroxysmal atrial fibrillation) (HCC) Hyperlipidemia with target LDL less than 70 Dyslipidemia, goal LDL below 70 Autonomic orthostatic hypotension Chronic heart failure with preserved ejection fraction (HCC) Vomiting and diarrhea 09/22/2023 9:36 AM EST Health Maintenance Due Date Last [...] Additional history exists CKD PHOS USE SMARTSET 39135 08/16/2024 12/0 01/2023, 07/25/2023, 07/06/2023, Additional history exists Albumin/Creatinine Ratio 09/08/2024 023, 06/22/2023, 05/27/2023, Additional history exists CKD HGB USE SMARTSET 62427 09/08/202409/08, 09/08/2023, 08/16/2023, Additional history exists DTaP,Tdap,and [...] this encounter Medical Devices Implanted Type Area Composition Molder Device Identifier Shelf Expiration Date Model / Serial / Lot Port Power Mri W/8fr Cath - [id number] Implanted:Qty: 1 on 09/26/2020 by Simone Michelle MD at OR [facility] Right: Chest CR BARD : PERIPHERAL VASCULAR 10/12/2021 [id number] / / [id number] Description:right IJ Lens Intraoc 19.0 - [id number] - [id number] Implanted:Qty: 1 on 02/03/2021 by Chris Sexton MD at OR [facility] Right: Eye [employer]OM[employer] 09/11/2025 [id number] / [id number] / Lens Intraoc 19.0 - [id number] - [id number] Implanted:Qty: 1 on 02/24/2021 by Chris Sexton MD at OR [facility] Left: Eye [employer]CH [employer] LOMB 10/12/2025 [id number] / [id number] / [id number] System Urolift - [id number] Implanted:Qty: 3 on 03/17/2023 by Devyn Paniagua MD at OR 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 Care Teams Fisheries Technician Relationship Specialty Start Date End Date Jaime Garcia MD [address] [place] [address] [place] [address] PCP - General Family Medicine 10/15/20 documented as of this encounter
--- OUTSIDE RECORDS SUMMARY | 2023-12-07 08:00 | External Medical Summary | Summary of Care ---
Author Name Unknown Organization [facility] Address [address] [place] [address] Phone [phone] Care Team Providers Care Isotope Technician Name Role Phone Jaime Garcia MD Primary Care Provide r Reason for Visit * Reason Onset Date Comments Advice 09/21/2023 Encounter Details Date Type Department Care Team (Late st Contact Info) Description 09/21/2023 Telephone Family Medicine [address] [phone] Jaime Garcia MD [address] [place] [address] [place], [place] [phone] Advice Allergies Active Allergy Reactions Criticality Noted [...] once daily 180 Tablet 3 12/14/2021 Active Hizentra 4 GM/20ML Subcutaneous Solution (immune [...] (Decadron)Indicati ons:Multiple myeloma not having achieved remission ([facility]) 5 tabs 2 times monthly 10 Tablet [...] Information Patient taking differently: 50 mcg Oral [id number], Reported on 04/14/2023 Warfarin Sodium 2.5 MG Oral Tablet (Coumadin)Indicati ons:Atrial fibrillation, unspecified type (HCC),Anticoagulat ion management encounter,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 [...] Tablet (Oxy IR)Indications:Mul tiple myeloma in relapse ([facility]) Take 1 Tablet by mouth every 4 [...] swelling, wt gain, Reported on 09/09/2023 Nystatin 270601 UNIT/ML Mouth/Throat SuspensionIndicati ons:Multiple myeloma in relapse [...] for Nausea. 30 Tablet 3 09/14/2023 Active Prochlorperazine Maleate 10 MG Oral Tablet (Compazine)Indicat ions:Nausea and vomiting, unspecified vomiting type Take 1 Tablet by mouth every 6 hours as needed for Nausea. 40 Tablet 0 09/20/2023 Active documented as of this encounter (statuses [...] remission 06/14/2014 Overview: Dr Rodriges/ [facility] DIRECTIVE INFORMATION 10/13/2006 Overview: No, [...] encounter Miscellaneous Notes * Telephone Encounter - Dipika Lindsay LPN - 09/22/2023 2:50 PM EST Pt seen [facility] 09/22/23 * Telephone Encounter - Alba Pnik OSA - 09/21/2023 9:35 AM EST Patient would like a call back on Jerardo if possible. [phone]. documented in this encounter Plan of Treatment Upcoming Encounters Date Type Department Care Team (Late st Contact Info) Description 09/27/2023 8:00 AM EST Appointment Radiology, [facility] [address] [place] [address] 09/28/2023 11:30 AM EST Anticoagulation Pharmacy, [address] [place] [address] [place] [address] 09/28/2023 11:40 AM EST Pharmacy Pharmacy, [address] [place] [address] [place] [address] 10/04/2023 11:00 AM EST Office Visit Infectious Disease [place] [address] [place] [phone] Jabari Vivar MD [address] [place] [address] 10/11/2023 1:00 PM EST Telemedicine H[facility]ology [facility] [place] [address] [facility] [place] [id number] Rosalio Amaral MD [address] [facility] [place] [address] 10/24/2023 1:30 PM EST Office Visit Urology, [facility] [address] [facility] [place] [address] Devyn Paniagua MD [address] [place] [address] 10/25/2023 2:30 PM EST [facility] Visit [facility] [place], [facility] [address] [facility] [place] [address] Sulma Seth, BOBBY [address] [facility] [place] [address] 11/10/2023 9:00 AM EST Office Visit H[facility]ology [facility] [place] [address] [place] [address] Rosalio Amaral MD [address] [place] [address] 11/23/2023 9:40 AM EDT Office Visit Nephrology, [facility] [address] [place] [address] Armando Cook MD [address] [place] [address] 12/09/2023 3:30 PM EDT Office Visit [facility]ology [facility] [place] [address] [place] [address] Rosalio Amaral MD [address] [place] [address] 12/15/2023 8:30 AM EDT Office Visit Cardiology, [facility] [address] [place] [address] Beth Gibbs CRNP [address] [place] [address] 03/08/2024 9:00 AM EDT Office Visit Cardiology [address] [place] [address] Tim Ruiz PA-C [address] [place] [address] Health Maintenance Due Date Last Done Comments [...] Additional history exists CKD PHOS USE SMARTSET 76942 08/16/2024 12/0 01/2023, 07/25/2023, 07/06/2023, Additional history exists Albumin/Creatinine Ratio 09/08/2024 023, 06/22/2023, 05/27/2023, Additional history exists CKD HGB USE SMARTSET 56359 09/08/202409/08, 09/08/2023, 08/16/2023, Additional history exists DTaP,Tdap,and [...] this encounter Medical Devices Implanted Type Area Ent Consultant Device Identifier Shelf Expiration Date Model / Serial / Lot Port Power Mri W/8fr Cath - [id number] Implanted:Qty: 1 on 09/26/2020 by Simone Michelle MD at OR [facility] Right: Chest CR BARD : PERIPHERAL VASCULAR 10/12/2021 [id number] / / [id number] Description:right IJ Lens Intraoc 19.0 - [id number] - [id number] Implanted:Qty: 1 on 02/03/2021 by Chris Sexton MD at OR [facility] Right: Eye [employer] 09/11/2025 [id number] / [id number] / Lens Intraoc 19.0 - [id number] - [id number] Implanted:Qty: 1 on 02/24/2021 by Chris Sexton MD at OR [facility] Left: Eye [employer]USCH [employer] LOMB 10/12/2025 [id number] / [id number] / [id number] System Urolift - [id number] Implanted:Qty: 3 on 03/17/2023 by Devyn Paniagua MD at OR [facility] N/A: Urethra [employer] 11/03/2023 [id number] / / [id number] documented as of this encounter Additional Health [...] and were consensually agreed upon. Care Teams Isotope Technician Relationship Specialty Start Date End Date Jaime Garcia MD [address] [place] [address] [place] [phone] PCP - General Family Medicine 10/15/20 documented as of this encounter
--- OUTSIDE RECORDS SUMMARY | 2023-12-07 08:01 | External Medical Summary | Summary of Care ---
Author Name Unknown Organization [facility] Address [address] [place] [address] Phone [phone] Care Team Providers Care Quoter Name Role Phone Jaime Garcia MD Primary Care Provide r Reason for Visit * Reason Comments Outpatient Testing Encounter Details Date Type Department Care Team (Late st Contact Info) Description 09/14/2023 9:20 AM EST Laboratory Laboratory [address] [place] [phone] , Specimen Drop Off [address] [place] [address] Cardiac amyloidosis (HCC); Chronic diastolic congestive heart failure (HCC); Coronary artery disease involving [place] coronary artery of [place] heart without angina pectoris; PAF (paroxysmal atrial fibrillation) (HCC); Hyperlipidemia with target LDL less than 70; Dyslipidemia, goal LDL below 70; Autonomic orthostatic hypotension; Chronic heart failure with preserved ejection fraction (HCC); Vomiting and diarrhea Allergies Active Allergy Reactions Criticality Noted Date Comments Atorvastatin Muscle pain High 03/30/2019 Ezetimibe Muscle pain High 01/25/2020 documented as of this encounter (statuses as of 09/16/2023) Medications Medication Sig Dispensed Refills Start Date [...] less than 7.0% ([facility]) Use as directed daily. Test once daily [...] Information Patient taking differently: 50 mcg Oral [id number], Reported on 04/14/2023 Warfarin Sodium 2.5 MG Oral Tablet (Coumadin)Indicati ons:Atrial fibrillation, unspecified type (HCC),Anticoagulat ion management encounter,nursing home current use of anticoagulant therapy,Paroxysmal atrial [...] Additional Information Patient taking differently:10 Units Subcutaneous [id number],On hold until seen by MTM 09/14, Reported on 09/09/2023 [place] 32G X 4 MM Use as directed. [...] morning. 100 Tablet 3 09/02/2023 Active Nystatin [id number] UNIT/ML Mouth/Throat SuspensionIndicati ons:Multiple myeloma in relapse [...] as of this encounter (statuses as of 09/16/2023) Active Problems Problem Noted Date Diagnosed Date [...] without remission 06/14/2014 Overview: Dr Rodriges/ [facility] ADVANCE DIRECTIVE INFORMATION 10/13/2006 Overview: No, Advance Directive brochure offered , patient declined. Degeneration of lumbosacral intervertebral disc 02/19/2005 documented as of this encounter (statuses as of 09/16/2023) Resolved Problems Problem Noted Date Diagnosed Date [...] as of this encounter (statuses as of 09/16/2023) Immunizations Name Administration Dates Next Due COVID-19, [...] as of this encounter Miscellaneous Notes * Result Encounter Note - Beth Salter CRNP - 09/16/2023 12:55 PM EST Please see telephone encounter documented in this encounter Plan of Treatment Upcoming Encounters Date Type Department Care Team (Late st Contact Info) Description 09/27/2023 8:00 AM EST Appointment Radiology, [facility] [address] [place] [phone] 09/28/2023 11:30 AM EST Anticoagulation Pharmacy, [address] [place] [id number] [place] [address] 09/28/2023 11:40 AM EST Pharmacy Pharmacy, [address] [place] [id number] [place] [address] 10/11/2023 1:00 PM EST Telemedicine [facility] UGAR[facility] [address] [facility] [place] [address] Rosalio Amaral MD [address] [facility] [place] [address] 10/24/2023 1:30 PM EST Office Visit Urology, [facility] [address] [address] Devyn Paniagua MD [address] [address] [place] [address] 10/25/2023 2:30 PM EST Home Visit [facility] [address] [place] [address] Sulma Seth, BOBBY [address] [place] [address] 11/10/2023 9:00 AM EST Office [facility] BUR[facility]ki Tyree [address] [place] [address] Rosalio Amaral MD [address] [place] [address] 11/23/2023 9:40 AM EDT Office Visit Nephrology, [facility] [address] [facility] [place] [address] Armando Cook MD [address] [place] [address] 12/09/2023 3:30 PM EDT Office Visit [facility] TORITO Waelder [address] [place] [address] Rosalio Amaral MD [address] [place] [address] 12/15/2023 8:30 AM EDT Office Visit Cardiology, [facility] [address] [place] [address] Beth Gibbs CRNP [address] [place] [address] 03/08/2024 9:00 AM EDT Office Visit Cardiology [address] [place] [address] Tim Ruiz PA-C [address] [place] [address] Pending Results Name Type Priority Associated Diagnoses Date /Time GASTROINTESTINAL PATHOGEN PANEL, STOOL Lab Routine Cardiac amyloidosis (HCC) Chronic diastolic congestive heart failure (HCC) Coronary artery disease involving [place] coronary artery of [place] heart without angina pectoris PAF (paroxysmal atrial fibrillation) (HCC) Hyperlipidemia with target LDL less than 70 Dyslipidemia, goal LDL below 70 Autonomic orthostatic hypotension Chronic heart failure with preserved ejection fraction (HCC) Vomiting and diarrhea 09/14/2023 9:19 AM EST GASTROINTESTINAL PATHOGEN PANEL CULTURE Lab Routine Cardiac amyloidosis (HCC) Chronic diastolic congestive heart failure (HCC) Coronary artery disease involving [place] coronary artery of [place] heart without angina pectoris PAF (paroxysmal atrial [...] Additional history exists CKD PHOS USE SMARTSET 59912 08/16/2024 12/0 01/2023, 07/25/2023, 07/06/2023, Additional history exists Albumin/Creatinine Ratio 09/08/202409/08/2 023, 06/22/2023, 05/27/2023, Additional history exists CKD HGB USE SMARTSET 50253 09/08/202409/08, 09/08/2023, 08/16/2023, Additional history exists DTaP,Tdap,and [...] this encounter Medical Devices Implanted Type Area Lastex Thread Winder Device Identifier Shelf Expiration Date Model / Serial / Lot Port Power Mri W/8fr Cath - [id number] Implanted:Qty: 1 on 09/26/2020 by Simone Michelle MD at OR [facility] Right: Chest CR BARD : PERIPHERAL VASCULAR 10/12/2021 [id number] / / [id number] Description:right IJ Lens Intraoc 19.0 - [id number] - [id number] Implanted:Qty: 1 on 02/03/2021 by Chris Sxeton MD at OR [facility] Right: Eye [employer] 09/11/2025 [id number] / [id number] / Lens Intraoc 19.0 - [id number] - [id number] Implanted:Qty: 1 on 02/24/2021 by Chris Sexton MD at OR [facility] Left: Eye [employer]OM[employer] 10/12/2025 [id number] / [id number] / [id number] System Urolift - [id number] Implanted:Qty: 3 on 03/17/2023 by Devyn Paniagua MD at OR [facility] N/A: Urethra [employer] 11/03/2023 [id number] / / [id number] documented as of this encounter Procedures Procedure Name Priority Date/Time Associated Diagnosis Comments GASTROINTESTINAL PATHOGEN PANEL CULTURE Routine 09/14/2023 9:19 AM EST Cardiac amyloidosis (HCC) Chronic diastolic congestive heart failure (HCC) Coronary artery disease involving [place] coronary artery of [place] heart without angina pectoris PAF (paroxysmal atrial fibrillation) (HCC) Hyperlipidemia with target LDL less than 70 Dyslipidemia, goal LDL below 70 Autonomic orthostatic hypotension Chronic heart failure with preserved ejection fraction (HCC) Vomiting and diarrhea GASTROINTESTINAL PATHOGEN PANEL PCR Routine 09/14/2023 9:19 AM EST Cardiac amyloidosis (HCC) Chronic diastolic congestive heart failure (HCC) Coronary artery disease involving [place] coronary artery of [place] heart without angina pectoris PAF (paroxysmal atrial fibrillation) (HCC) Hyperlipidemia with target LDL less than 70 Dyslipidemia, goal LDL below 70 Autonomic orthostatic hypotension Chronic heart failure with preserved ejection fraction (HCC) Vomiting and diarrhea CLOSTRIDIUM DIFFICILE, PCR Routine 09/14/2023 9:19 AM EST Cardiac amyloidosis (HCC) Chronic diastolic congestive heart failure (HCC) Coronary artery disease involving [place] coronary artery of [place] heart without angina pectoris PAF (paroxysmal atrial fibrillation) (HCC) Hyperlipidemia with target LDL less than 70 Dyslipidemia, goal LDL below 70 Autonomic orthostatic hypotension Chronic heart failure with preserved ejection fraction (HCC) Vomiting and diarrhea documented in this encounter Results * CLOSTRIDIUM DIFFICILE, PCR (09/14/2023 9:19 AM EST) Pathologist [facility] Stool Consistency Liquid 09/14/2023 2:52 PM EST LAB[facility]ATORY [facility] Clostridium difficile Result Negative. No C. difficile toxin B gene DNA detected by PCR (Amplified Probe). Negative 09/14/2023 2:52 PM EST LAB[facility]ATORY [facility] Stool Stool specimen / Unknown Non-blood Collection / Unknown 09/14/2023 9:19 AM EST 09/14/2023 9:19 AM EST Beth BLUE LAB MICRO - GENERAL ORDERABLES [facility] [address] [place] [address] * (ABNORMAL) GASTROINTESTINAL PATHOGEN PANEL PCR (09/14/2023 9:19 AM EST) Pathologist [facility] Campylobacter group by PCR Negative Negative 09/14/2023 10:40 PM EST [facility] Salmonella species by PCR Positive(A) Negative 09/14/2023 10:40 PM EST LAB[facility]ATORY [facility] Comment:Salmonella species d etected by PCR (amplified probe). Test results reported to [facility]. Shigella species by PCR Negative Negative 09/14/2023 10:40 PM EST LAB[facility] Vibrio group by PCR Negative Negative 09/14/2023 10:40 PM EST [facility] Yersinia enterocolitica by PCR Negative Negative 09/14/2023 10:40 PM EST LAB[facility] Shiga Toxin 1 Gene by PCR Negative Negative 09/14/2023 10:40 PM EST [facility] Shiga Toxin 2 Gene by PCR Negative Negative 09/14/2023 10:40 PM EST [facility] Norovirus by PCR Negative Negative 09/14/19 10:40 PM EST LAB[facility] Rotavirus by PCR Negative Negative 09/14/19 10:40 PM EST LAB[facility] Stool Stool specimen / Unknown Non-blood Collection / Unknown 09/14/2023 9:19 AM EST 09/14/2023 9:19 AM EST Beth BLUE LAB MICRO - GENERAL ORDERABLES [facility] [address] [place] [address] documented in this encounter Visit Diagnoses Diagnosis Cardiac amyloidosis (HCC) Other amyloidosis Chronic diastolic congestive heart failure (HCC) Chronic diastolic heart failure Coronary artery disease involving [place] coronary artery of [place] heart without angina pectoris PAF (paroxysmal atrial [...] difficile Rule-Out 09/14/2023 09/14/20232023 2:52 PM EST documented as of this encounter [...] and were consensually agreed upon. Care Teams Quoter Relationship Specialty Start Date End Date Jaime Garcia MD [address] [place] [address] [place] [address] PCP - General Family Medicine 10/15/20 documented as of this encounter
--- OUTSIDE RECORDS SUMMARY | 2023-12-07 08:01 | External Medical Summary ---
Author Name Unknown Address Unknown Organization [id number]:[facility] - [address] [place] [address] Laboratory Report Ordering Provider Test Date Status BINH KLEIN 09/14/2023 09:19:32 Final No Aeromonas species or Ples iomonas species isolated. Observation Date Value Abnormality Reference (Units ) Status Bacteria identified in Specimen by Culture 09/14/2023 09:19:32 [id number]^SALMONE LLA SPECIES Abnormal Final Salmonella species
Test results reported to [place] [facility]. Performing Location [facility] - [address] [place] [id number] Ordering Provider Test Date Status BINH KLEIN 09/14/2023 09:19:32 Final Observation Date Value Abnormality Reference (Units ) Status Ampicillin 09/14/2023 09:19:32 <=2 Susceptible Final TMP-SMZ susceptibility 09/14/2023 09:19:32 <=20 Suscept ible Final Performing Location [facility] - [address] [place] [id number] Ordering Provider Test Date Status BINH KLEIN 09/14/2023 09:19:32 Final Azithromycin JUAN A 8 ug/ml Observation Date Value Abnormality Reference (Units ) Status Ciprofloxacin 09/14/2023 09:19:32 0.032 Susceptible S usceptible <0.5 , Intermediate >=.5 , Resistant >=1 Final Test: Gastrointestinal Patho gen Panel Culture
Specimen Source: Stool
Specimen Type: Stool
Specimen Date: 09/14/2023 9:19 AM
Result Date: 09/19/2023 1:09 PM
Result Status: Final result
Abnormal: Yes
Resulting Lab: [facility]
[address]
[place] [address]

CULTURE

Salmonella species (Abnormal)

Test results reported to [place] [facility].

No Aeromonas species or Plesiomonas species isolated.

SUSCEPTIBILITY

Salmonella species Salmonella species
METHOD ETEST MICROBROTH
DILUTIONS

AMPICILLIN <=2 Susceptible
CIPROFLOXACIN 0.032 Susceptible
TRIMETH/SULFAMETHOXAZOLE <=20 Susceptible

SUSCEPTIBILITY COMMENTS

Salmonella species

Azithromycin JUAN A 8 ug/ml

null Performing Location LABORATORY [facility] - [address] [facility] [address]
[2023-12-07] MEDS: MIDODRINE HCL 10 MG TAB PO SCH (08:16)
[2023-12-07] MEDS: PANTOprazole 40 MG TAB PO SCH (08:17)
[2023-12-07] MEDS: FINASTERIDE 5 MG TAB PO SCH (08:17)
[2023-12-07] MEDS: POTASSIUM CHLORIDE CRTAB 20 MEQ TABCR PO SCH (08:19)
[2023-12-07] MEDS: CHOLECALCIFEROL 125 MCG (5,000 UNITS) TAB PO SCH (08:20)
[2023-12-07] MEDS: ACYCLOVIR 400 MG TAB PO SCH (08:20)
[2023-12-07] MEDS: allopurinoL 100 MG TAB PO SCH (08:20)
[2023-12-07] MEDS: DAPSONE 25 MG TAB PO SCH (08:21)
[2023-12-07] MEDS: DULoxetine HCL 20 MG CAP PO SCH (08:21)
[2023-12-07] MEDS: MAGNESIUM CHLORIDE W/CALCIUM 64MG DELAYED REL TAB PO SCH (08:21)
[2023-12-07] MEDS: CHOLECALCIFEROL 25 MCG (1000 UNITS) TAB PO SCH (08:21)
[2023-12-07] MEDS: FOLIC ACID 400 MCG TAB PO SCH (08:21)
[2023-12-07 08:36] LABS: Estimated Average Glucose 128 mg/dl; Hemoglobin A1C 6.1 % (4.5-5.6)
--- NOTE | 2023-12-07 08:40 | Hospitalist Progress Note ---
Date of Service December 07, 2023 Assessment & Plan (1) SOB (shortness of breath): Plan: 53 yo male with past med history significant for type 2 diabetes, hyperlipidemia, obstructive sleep apnea, paroxysmal atrial fibrillation, cardiac amyloidosis, chronic heart failure with preserved ejection fraction, nonocclusive coronary disease, CKD stage III, congenital solitary right kidney, BPH, peripheral neuropathic pain, chemotherapy-induced neuropathy, degeneration of lumbosacral sacral disc, multiple myeloma without remission, statin intolerance, history of C diff,history of Salmonella gastroenteritis, comes because of flulike symptoms. Patient states his was diagnosed with COVID a week ago. He was having some runny nose for 2 days that got resolved. Feeling fatigue and weak. He was also getting short of breath and could not take deep breath. Was worried about COVID and came to the ER. BioFire is negative. But CT scan showing bilateral moderate pleural effusions. Patient states when he was diagnosed with cancer in 2013 he had pleural effusions and had a thoracocentesis at that time. States takes torsemide as needed. Used to take torsemide daily but because of dehydration currently taking as needed. He took 1 dose last week. He took 1 dose yesterday because of shortness of breath. Usually takes when his ankle swells. Denies any fevers. Has some headache but that got resolved. Vision is okay. He had no earache. No runny nose. No sore throat. He states he has had difficulty swallowing since last 1 year. Generally he tries to eat soft food. No nausea. Has some lower abdominal discomfort from constipation. States somewhat constipated since last 6 months. Denies any blood in stools or black stools. Micturating okay. No rash. Ambulates with a cane. Hemodynamics are okay. Shortness of breath Bilateral pleural effusions BioFire negative Will monitor in the hospital Nebs as needed for now Consulted pulmonary for recommendations - diuresis for now, no thoracentesis for now Type 2 diabetes hold metformin Insulin sliding scale Will monitor Obstructive sleep apnea CPAP nightly with 2lts oxygen CKD stage III Baseline creatinine 1.7 creatinine 1.3 on admission Will follow labs History of chronic heart failure with reduced ejection fraction Cardiac amyloidosis EF of 45-50% echo in 2022 on torsemide as needed Monitor for volume overload History of hypotension on Midodrine History of multiple myeloma Looks like last chemo on 11/14/23 per [facility]. Chemo as per heme-onc. Seems plan for Cart therapy at [facility] in January as per patient. On dapsone, acyclovir and tenofovir History of A-fib On Coumadin amiodarone stopped Will follow PT/INR Hypothyroidism On Synthyroid History of nonocclusive CAD On Coumadin and Repatha BPH Proscar GERD Protonix DVT prophylaxis on Coumadin Follow PT/INR Disposition Med/tele Admission and Anticipated Discharge Date Admission Date: December 06, 2023 Subjective Pt seen in follow up of shortness of breath, pl. effusions, hx of MM Pulmonary med. consulted Currently laying in bed in NAD, on CPAP Says he still has troubles breathing but feeling better than yesterday, denies chest pain No fever, chills, abd. pain pulm. recommends diuresis for now, may need thoracentesis if diuresis not effective Review of Systems Review of Systems: All systems reviewed & are unremarkable except as noted in Subjective Physical Exam Physical Exam: General- WD/WN M in NAD Head- atraumatic Eyes- PERRL. ENT- oropharynx clear Neck- supple, no JVD. Lungs- no wheezing , + crackles at bases bilaterally. Heart- regular rhythm; no murmur Abdomen- normal bowel sounds, soft, nontender, no distension. Extremities- no pretibial edema, no erythema seen. Neuro- alert, oriented PERRL, no facial palsy; no dysarthria; moves extremities. Results & Data Results & Data Vital Signs (Past 12 Hours) Vital Signs Temp Pulse Pulse Resp BP BP BP 12/07/23 07:50 36.8 C 80 20 130/92 12/07/23 07:04 80 12/07/23 03:15 71 17 12/07/23 02:30 12/07/23 02:30 36.4 C 82 18 124/87 12/07/23 02:26 82 12/06/23 22:49 85 12/06/23 22:37 12/06/23 22:32 87 14 12/06/23 22:32 134/94 12/06/23 22:30 91 H 24 12/06/23 22:00 83 18 12/06/23 21:30 89 22 12/06/23 21:00 87 19 Pulse Ox O2 Del Method O2 Flow Rate 12/07/23 07:50 96 Room Air 12/07/23 07:04 12/07/23 03:15 98 2 12/07/23 02:30 Room Air, CPAP 12/07/23 02:30 96 Room Air 12/07/23 02:26 12/06/23 22:49 12/06/23 22:37 95 Nasal Cannula 2 12/06/23 22:32 87 L Room Air 12/06/23 22:32 12/06/23 22:30 92 12/06/23 22:00 94 12/06/23 21:30 12/06/23 21:00 96 Laboratory Results 12/07/23 12/07/23 12/07/23 Range/Units 08:19 05:40 02:33 WBC 6.18 (4.8-10.8) K/ul RBC 4.67 L (4.70-6.10) M/uL Hgb 14.5 (14.0-18.0) g/dl Hct 43.2 (42.0-52.0) % MCV 92.5 (80.0-100.0) fL MCH 31.0 (25.0-34.0) pg MCHC 33.6 (32.0-36.0) g/dL RDW Std Deviation 52.9 H (36.4-46.3) fL RDW Coeff of Tobi 15.6 H (11.5-14.5) % Plt Count 330 (130-400) K/uL MPV 10.0 (9.4-12.4) fL Immature Gran % (Auto) 0.2 % Neut % (Auto) 72.8 % Lymph % (Auto) 10.0 % Cochran % (Auto) 13.8 % Eos % (Auto) 2.4 % Baso % (Auto) 0.8 % Neut # (Auto) 4.50 (1.40-6.50) K/uL Lymph # (Auto) 0.62 L (1.20-3.40) K/uL Cochran # (Auto) 0.85 H (0.11-0.59) K/uL Eos # (Auto) 0.15 (0.00-0.50) K/uL Baso # (Auto) 0.05 (0.00-0.20) K/uL Immature Gran # (Auto) 0.01 (0.01-0.20) K/uL PT 23.9 H (9.0-12.0) Seconds INR 2.3 H (0.9-1.1) APTT (21-31) Seconds PTT Ratio Sodium 136 (136-145) mmol/L Potassium 5.6 H D (3.5-5.1) mmol/L Chloride 101 (98-107) mmol/L Carbon Dioxide 31 (21-32) mmol/L Anion Gap 4 (3-11) BUN 15 (6-23) mg/dl Creatinine 1.35 (0.6-1.4) mg/dl Est Cr Clr Drug Dosing 58.6 ml/min Est GFR ( Amer) 69.0 ml/min Est GFR (Non-Af Amer) 59.5 ml/min BUN/Creatinine Ratio 11.1 (10-20) Glucose 99 (70-99(Fasting)) mg/dl POC Glucose 81 126 H (70-99) mg/dl Estimat Average Glucose 128 mg/dl Hemoglobin A1c 6.1 H (4.5-5.6) % Calcium 9.5 (8.6-10.3) mg/dl Magnesium 1.7 (1.7-2.4) mg/dl Total Bilirubin (0.2-1.0) mg/dl AST (13-39) U/L ALT (7-52) U/L Alkaline Phosphatase (34-104) U/L Troponin I High Sens 48.8 H (0-20) pg/ml Total Protein (6.0-8.3) gm/dl Albumin (3.4-5.0) gm/dl Globulin (2.5-4.0) gm/dl Albumin/Globulin Ratio (0.9-2) Procalcitonin (0-0.5) ng/ml TSH 2.964 (0.300-4.500) uIu/ml Adenovirus (PCR) (NotDetected) B. pertussis DNA (PCR) (NotDetected) B.parapertussis DNA PCR (NotDetected) C. pneumoniae DNA (PCR) (NotDetected) Coronavirus OC43 (PCR) (NotDetected) Coronavirus HKU1 (PCR) (NotDetected) Coronavirus 229E (PCR) (NotDetected) SARS-CoV-2 (PCR) (NotDetected) Coronavirus NL63 (PCR) (NotDetected) Human Metapneumovir PCR (NotDetected) Influenza Type A (PCR) (NotDetected) Influenza Type B (PCR) (NotDetected) M. pneumoniae (PCR) (NotDetected) Parainfluenza 1 (PCR) (NotDetected) Parainfluenza 2 (PCR) (NotDetected) Parainfluenza 3 (PCR) (NotDetected) Parainfluenza 4 (PCR) (NotDetected) RSV (PCR) (NotDetected) Entero/Rhino (PCR) (NotDetected) 12/06/23 12/06/23 12/06/23 Range/Units 21:13 18:41 16:06 WBC 6.52 (4.8-10.8) K/ul RBC 4.49 L (4.70-6.10) M/uL Hgb 14.1 (14.0-18.0) g/dl Hct 41.1 L (42.0-52.0) % MCV 91.5 (80.0-100.0) fL MCH 31.4 (25.0-34.0) pg MCHC 34.3 (32.0-36.0) g/dL RDW Std Deviation 52.5 H (36.4-46.3) fL RDW Coeff of Tobi 15.7 H (11.5-14.5) % Plt Count 367 (130-400) K/uL MPV 10.4 (9.4-12.4) fL Immature Gran % (Auto) 0.2 % Neut % (Auto) 75.2 % Lymph % (Auto) 8.9 % Cochran % (Auto) 12.4 % Eos % (Auto) 2.5 % Baso % (Auto) 0.8 % Neut # (Auto) 4.91 (1.40-6.50) K/uL Lymph # (Auto) 0.58 L (1.20-3.40) K/uL Cochran # (Auto) 0.81 H (0.11-0.59) K/uL Eos # (Auto) 0.16 (0.00-0.50) K/uL Baso # (Auto) 0.05 (0.00-0.20) K/uL Immature Gran # (Auto) 0.01 (0.01-0.20) K/uL PT 25.9 H (9.0-12.0) Seconds INR 2.5 H (0.9-1.1) APTT 42 H (21-31) Seconds PTT Ratio 1.5 Sodium 137 (136-145) mmol/L Potassium 4.0 (3.5-5.1) mmol/L Chloride 99 (98-107) mmol/L Carbon Dioxide 31 (21-32) mmol/L Anion Gap 7 (3-11) BUN 15 (6-23) mg/dl Creatinine 1.31 (0.6-1.4) mg/dl Est Cr Clr Drug Dosing 60.0 ml/min Est GFR ( Amer) 71.5 ml/min Est GFR (Non-Af Amer) 61.7 ml/min BUN/Creatinine Ratio 11.5 (10-20) Glucose 95 (70-99(Fasting)) mg/dl POC Glucose (70-99) mg/dl Estimat Average Glucose mg/dl Hemoglobin A1c (4.5-5.6) % Calcium 9.6 (8.6-10.3) mg/dl Magnesium (1.7-2.4) mg/dl Total Bilirubin 0.7 (0.2-1.0) mg/dl AST 11 L (13-39) U/L ALT 7 (7-52) U/L Alkaline Phosphatase 106 H (34-104) U/L Troponin I High Sens 48.6 H 45.4 H (0-20) pg/ml Total Protein 5.9 L (6.0-8.3) gm/dl Albumin 3.8 (3.4-5.0) gm/dl Globulin 2.1 L (2.5-4.0) gm/dl Albumin/Globulin Ratio 1.8 (0.9-2) Procalcitonin 0.06 (0-0.5) ng/ml TSH (0.300-4.500) uIu/ml Adenovirus (PCR) Not Detected (NotDetected) B. pertussis DNA (PCR) Not Detected (NotDetected) B.parapertussis DNA PCR Not Detected (NotDetected) C. pneumoniae DNA (PCR) Not Detected (NotDetected) Coronavirus OC43 (PCR) Not Detected (NotDetected) Coronavirus HKU1 (PCR) Not Detected (NotDetected) Coronavirus 229E (PCR) Not Detected (NotDetected) SARS-CoV-2 (PCR) Not Detected (NotDetected) Coronavirus NL63 (PCR) Not Detected (NotDetected) Human Metapneumovir PCR Not Detected (NotDetected) Influenza Type A (PCR) Not Detected (NotDetected) Influenza Type B (PCR) Not Detected (NotDetected) M. pneumoniae (PCR) Not Detected (NotDetected) Parainfluenza 1 (PCR) Not Detected (NotDetected) Parainfluenza 2 (PCR) Not Detected (NotDetected) Parainfluenza 3 (PCR) Not Detected (NotDetected) Parainfluenza 4 (PCR) Not Detected (NotDetected) RSV (PCR) Not Detected (NotDetected) Entero/Rhino (PCR) Not Detected (NotDetected) Medications Administered Current Inpatient Medications Acetaminophen (Acetaminophen 325 Mg Tab) 650 mg PO Q4H PRN PRN Reason: Pain or Fever Stop: 01/06/24 02:24 Acyclovir (Acyclovir 400 Mg Tab) 400 mg PO DAILY [facility] Stop: 01/06/24 08:59 Last Admin: 12/07/23 08:20 Dose: 400 mg Albuterol (Albuterol Hfa 8 Gm Inhaler) 2 puffs INH Q6H PRN PRN Reason: Shortness Of Breath/COUGH Stop: 01/06/24 02:24 Allopurinol (Allopurinol 100 Mg Tab) 100 mg PO DAILY [facility] Stop: 01/06/24 08:59 Last Admin: 12/07/23 08:20 Dose: 100 mg Dapsone (Dapsone 25 Mg Tab) 25 mg PO DAILY JOSE Stop: 01/06/24 08:59 Last Admin: 12/07/23 08:21 Dose: 25 mg Dextrose (Dextrose 50% 50 Ml Syringe) 25 - 50 ml IV UD PRN; Protocol PRN Reason: Hypoglycemia Protocol Stop: 01/06/24 02:24 Duloxetine HCl (Duloxetine Hcl 20 Mg Cap) 40 mg PO DAILY JOSE Stop: 01/06/24 08:59 Last Admin: 03/27/24 08:21 Dose: 40 mg Finasteride (Finasteride 5 Mg Tab) 5 mg PO DAILY JOSE Stop: 01/06/24 08:59 Last Admin: 12/07/23 08:17 Dose: 5 mg Folic Acid (Folic Acid 400 Mcg Tab) 400 mcg PO DAILY JOSE Stop: 01/06/24 08:59 Last Admin: 12/07/23 08:21 Dose: 400 mcg Glucagon (Glucagon For Inj 1 Mg Vial) 1 mg SQ UD PRN; Protocol PRN Reason: Hypoglycemia Protocol Stop: 01/06/24 02:24 Glucose (Glucose 10 Tab/Tube) 4 - 8 tab PO UD PRN; Protocol PRN Reason: Hypoglycemia Treatment Stop: 01/06/24 02:24 Glucose (Glucose 40% Gel 15 Gm Tube) 15 - 30 gm PO UD PRN; Protocol PRN Reason: Hypoglycemia Protocol Stop: 01/06/24 02:24 Insulin Aspart (Insulin Aspart Per Unit Charge) 0 units SC ACHS JOSE Stop: 01/06/24 07:29 Levothyroxine Sodium (Levothyroxine Sodium 50 Mcg Tablet) 50 mcg PO DAILYBB JOSE Stop: 01/06/24 06:29 Last Admin: 12/07/23 06:06 Dose: 50 mcg Magnesium Chloride (Magnesium Chloride W/Calcium 64mg Delayed Rel Tab) 64 mg PO BID JOSE Stop: 01/06/24 08:59 Last Admin: 12/07/23 08:21 Dose: 64 mg Midodrine (Midodrine Hcl 10 Mg Tab) 20 mg PO TID@0800,1200,1700 JOSE Stop: 01/06/24 07:59 Last Admin: 12/07/23 08:16 Dose: Not Given Miscellaneous (Icosapent Ethyl - Order Awaiting Action) 1 each N/A QS [facility] Stop: 01/06/24 07:59 Last Admin: 12/07/23 08:23 Dose: Not Given Miscellaneous (Tenofovir Alafenamide 25 Mg - Order Awaiting Action) 1 each N/A QS [facility] Stop: 01/06/24 07:59 Last Admin: 12/07/23 08:23 Dose: Not Given Miscellaneous (Carbohydrates For Hypoglycemia ) 15 - 30 gm PO UD PRN PRN Reason: Hypoglycemia Protocol Stop: 01/06/24 02:24 Nitroglycerin (Nitroglycerin Sl 0.4 Mg/Tab Tab) 0.4 mg SL Q5M PRN PRN Reason: Chest Pain Stop: 01/06/24 02:24 Oxycodone HCl (Oxycodone Hcl Ir 5 Mg Tab (Immediate Release)) 5 mg PO Q4H PRN PRN Reason: Pain Stop: 12/21/23 02:24 Pantoprazole Sodium (Pantoprazole 40 Mg Tab) 40 mg PO DAILY JOSE Stop: 01/06/24 08:59 Last Admin: 12/07/23 08:17 Dose: 40 mg Polyethylene Glycol (Polyethylene (Miralax) 17 Gm Pack) 17 gm PO DAILY PRN PRN Reason: Constipation Stop: 01/06/24 02:24 Vitamin D (Cholecalciferol 125 Mcg (5,000 Units) Tab) 125 mcg PO DAILY [facility]SE Stop: 01/06/24 08:59 Last Admin: 12/07/23 08:20 Dose: 125 mcg Vitamin D (Cholecalciferol 25 Mcg (1000 Units) Tab) 25 mcg PO DAILY [facility]SE Stop: 01/06/24 08:59 Last Admin: 12/07/23 08:21 Dose: 25 mcg Warfarin Sodium (Warfarin Sod 1.25 Mg Tab) 1.25 mg PO DAILY@1600 [facility] Stop: 01/06/24 15:59
[2023-12-07] MEDS: INSULIN ASPART PER UNIT CHARGE SC SCH (08:53)
[2023-12-07 09:17] LABS: BUN Creatinine Ratio 11.2 (10-20); Calcium 9.1 mg/dl (8.6-10.3); Creatinine Clr Calc Pharmacy 63.3 ml/min; Est GFR (African American) 75.7 ml/min; Est GFR (Non-African American) 65.3 ml/min; Potassium 4.3 mmol/L (3.5-5.1)
[2023-12-07] MEDS: ACETAMINOPHEN 325 MG TAB PO PRN (11:57)
[2023-12-07] MEDS: FUROSEMIDE 40 MG/4 ML VIAL IV ONE (13:27)
--- NOTE | 2023-12-07 16:03 | Electrocardiogram Report ---
Test Reason : Blood Pressure : / mmHG Vent. Rate : 083 BPM Atrial Rate : 083 BPM P-R Int : 192 ms QRS Dur : 098 ms QT Int : 408 ms P-R-T Axes : 036 056 235 degrees QTc Int : 479 ms Normal sinus rhythm with sinus arrhythmia Low voltage QRS Septal infarct (cited on or before 26-AUG-2023) Abnormal ECG When compared with ECG of 17-SEP-2023 19:42, Questionable change in initial forces of Septal leads Confirmed by Philip Cheek [id number]) on 12/07/2023 4:03:16 PM Referred By: REFERRED SELF Confirmed By:Philip Cheek
[2023-12-07] MEDS: OMEGA-3 (PURIFIED FISH OIL) 1 GM CAP PO SCH (16:29)
[2023-12-07] MEDS: WARFARIN SOD 1.25 MG TAB PO SCH (17:27)
[2023-12-08 07:05] LABS: Hematocrit (blood only) 42.6 % (42.0-52.0); Hemoglobin 14.6 g/dl (14.0-18.0); Mean Corpuscular Hemoglobin 30.9 pg (25.0-34.0); Mean Corpuscular Hgb Conc 34.3 g/dL (32.0-36.0); Mean Corpuscular Volume 90.1 fL (80.0-100.0); Mean Platelet Volume 10.3 fL (9.4-12.4); Platelet Count 368 K/uL (130-400); RDW Standard Deviation 49.6 fL (36.4-46.3); Red Blood Count 4.73 M/uL (4.70-6.10)
[2023-12-08 07:32] LABS: BUN Creatinine Ratio 10.2 (10-20); Calcium 9.2 mg/dl (8.6-10.3); Creatinine Clr Calc Pharmacy 62.3 ml/min; Est GFR (African American) 74.3 ml/min; Est GFR (Non-African American) 64.1 ml/min; INR 2.4 (0.9-1.1); Magnesium 1.8 mg/dl (1.7-2.4); Phosphorus 2.9 mg/dl (2.5-4.9); Potassium 4.1 mmol/L (3.5-5.1); Prothrombin Time 24.7 Seconds (9.0-12.0)
[2023-12-08 07:57] VITALS: RESP 18
--- NOTE | 2023-12-08 07:57 | Pulmonology Progress Note ---
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: (5) Acute on chronic combined systolic and diastolic CHF, NYHA class 2: Plan CT chest 12/06/2023 personally reviewed: Moderate to large right-sided pleural effusion, moderate left-sided pleural effusion with compressive atelectasis of bilateral lower lobes Minimal interlobular thickening No significant mediastinal lymphadenopathy 2D echo 08/27/2023: EF 45-50%, grade 2 diastolic dysfunction, RV normal in size with severe RVH, RV systolic function is mild to moderately reduced -- Bilateral pleural effusion With compressive atelectasis of bilateral lower lobes Likely secondary to acute exacerbation of systolic and diastolic CHF. 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 Planning to get CAR-T treatment in January 2024 -- A-fib On warfarin at home Plan: In/out: -1.1 L, urine output 1651 Patient is already feeling better. Continue with aggressive diuresis to have at least -1 L on a daily basis. Recommend strict ins and outs Incentive spirometry will be beneficial. Please note the above document was generated using voice recognition software. It may contain grammatical, syntax or spelling errors.Any formal questions or concerns about the content, text or information contained within the body of this dictation should be directly addressed to the provider for clarification. Admission and Anticipated Discharge Date Admission Date: December 06, 2023 Subjective Patient seen and examined at bedside. No acute distress, no RASS events overnight. He is making good amount of urine. He said he slept well last night. Breathing has improved compared to when he came to the hospital Denied any chest pain. He was saturating 99% on room air with heart rate in the mid 80s. Fair appetite. No nausea or vomiting Review of Systems 2 Review of Systems: All systems reviewed & are unremarkable except as noted in Subjective Physical Exam 2 Physical Exam: Constitutional: No acute distress HEENT: EOMI, PERRLA Respiratory system: Decreased air entry bilaterally, no wheeze, no rhonchi, positive crackles bilateral lower lobes CVS: S1-S2 positive, no murmurs or gallops, accentuated P2 Abdomen: Soft, nontender, nondistended, positive bowel sounds x4 Extremities: +2 pulses bilaterally radialis/ dorsalis pedis, no cyanosis, no edema Neuro: Awake alert oriented x3 Psych: Normal mood and affect G/U: No Laurent Skin: no rashes, warm and dry Lymphatic: no cervical or axillary lymphadenopathy Results & Data Results & Data Vital Signs (Past 12 Hours) Vital Signs Temp Pulse Pulse Resp BP Pulse Ox O2 Del Method 12/08/23 07:36 81 12/08/23 07:31 Room Air 12/08/23 04:08 36.4 C L 79 20 118/82 99 Room Air 12/08/23 03:15 72 15 94 12/07/23 23:49 77 16 97 12/07/23 23:48 36.7 C 78 20 105/71 93 Room Air 12/07/23 22:01 73 12/07/23 20:03 37.2 C 82 20 108/74 93 Room Air O2 Flow Rate 12/08/23 07:36 12/08/23 07:31 12/08/23 04:08 12/08/23 03:15 2 12/07/23 23:49 2 12/07/23 23:48 12/07/23 22:01 12/07/23 20:03 Laboratory Results 12/08/23 06:16 12/08/23 06:16 PG Care Time/CCT Total # of Minutes Spent Total Time Spent with Patient: Total time spent is greater than 50% in coordination of care (as documented) at patient's floor/unit and/or counseling patient: Coding Level of Care Code 58350 SUB INP/OBS CARE 2/35MIN Diagnoses Pleural effusion, bilateral J90 SOB (shortness of breath) R06.02 DEBBY (obstructive sleep apnea) G47.33 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
--- NOTE | 2023-12-08 08:52 | Hospitalist Progress Note ---
Date of Service December 08, 2023 Assessment & Plan (1) SOB (shortness of breath): Plan: 53 yo male with past med history significant for type 2 diabetes, hyperlipidemia, obstructive sleep apnea, paroxysmal atrial fibrillation, cardiac amyloidosis, chronic heart failure with preserved ejection fraction, nonocclusive coronary disease, CKD stage III, congenital solitary right kidney, BPH, peripheral neuropathic pain, chemotherapy-induced neuropathy, degeneration of lumbosacral sacral disc, multiple myeloma without remission, statin intolerance, history of C diff,history of Salmonella gastroenteritis, comes because of flulike symptoms. Patient states his was diagnosed with COVID a week ago. He was having some runny nose for 2 days that got resolved. Feeling fatigue and weak. He was also getting short of breath and could not take deep breath. Was worried about COVID and came to the ER. BioFire is negative. But CT scan showing bilateral moderate pleural effusions. Patient states when he was diagnosed with cancer in 2013 he had pleural effusions and had a thoracocentesis at that time. States takes torsemide as needed. Used to take torsemide daily but because of dehydration currently taking as needed. He took 1 dose last week. He took 1 dose yesterday because of shortness of breath. Usually takes when his ankle swells. Denies any fevers. Has some headache but that got resolved. Vision is okay. He had no earache. No runny nose. No sore throat. He states he has had difficulty swallowing since last 1 year. Generally he tries to eat soft food. No nausea. Has some lower abdominal discomfort from constipation. States somewhat constipated since last 6 months. Denies any blood in stools or black stools. Micturating okay. No rash. Ambulates with a cane. Hemodynamics are okay. Shortness of breath Bilateral pleural effusions BioFire negative Will monitor in the hospital Nebs as needed for now Consulted pulmonary for recommendations - diuresis for now, no thoracentesis for now Pt responded well to IV lasix, he is breathing comfortably on RA, without any more shortness of breath Symptoms likely secondary to syst. and diast. chf (pt on torsemide prn at home) Will follow up with PCP next week - cont. with torsemide Recommend obtaining BMP at next PCP visit Recommend morning weights at home Type 2 diabetes hold metformin Insulin sliding scale monitor Obstructive sleep apnea CPAP nightly with 2lts oxygen CKD stage III Baseline creatinine 1.7 creatinine 1.3 on admission monitor renal function History of chronic heart failure with reduced ejection fraction Likely symptoms secondary acute on chronic chf Cardiac amyloidosis EF of 45-50% echo in 2022 on torsemide as needed responded well to IV lasix - cont. w/ torsemide on discharge History of hypotension on Midodrine History of multiple myeloma Looks like last chemo on 11/14/23 per [facility]. Chemo as per heme-onc. Seems plan for Cart therapy at [facility] in January as per patient. On dapsone, acyclovir and tenofovir History of A-fib On Coumadin amiodarone stopped monitor PT/INR Hypothyroidism On Synthyroid History of nonocclusive CAD On Coumadin and Repatha BPH Proscar GERD Protonix Admission and Anticipated Discharge Date Admission Date: December 06, 2023 Subjective Pt seen in follow up of shortness of breath, pl. effusions/ chf exacerb., hx of MM Pulmonary med. consulted Currently laying in bed in NAD He is feeling much better. Received IV lasix last evening and this AM and responded well. He is breathing comfortably on RA and even ambulated with RN in hallway and his sats are 96%. He would like to go home as it is his daughter's birthday. Denies any chest pain No fever, chills, abd. pain Review of Systems Review of Systems: All systems reviewed & are unremarkable except as noted in Subjective Physical Exam Physical Exam: General- WD/WN M in NAD Head- atraumatic Eyes- PERRL. ENT- oropharynx clear Neck- supple, no JVD. Lungs- no wheezing , + minimal crackles at bases bilaterally (much improved) Heart- regular rhythm; no murmur Abdomen- normal bowel sounds, soft, nontender, no distension. Extremities- no pretibial edema, no erythema seen. Neuro- alert, oriented PERRL, no facial palsy; no dysarthria; moves extremities. Results & Data Results & Data Vital Signs (Past 12 Hours) Vital Signs Temp Pulse Pulse Resp BP BP Pulse Ox 12/08/23 07:56 36.8 C 84 18 121/86 95 12/08/23 07:36 81 12/08/23 07:31 12/08/23 04:08 36.4 C L 79 20 118/82 99 12/08/23 03:15 72 15 94 12/07/23 23:49 77 16 97 12/07/23 23:48 36.7 C 78 20 105/71 93 12/07/23 22:01 73 O2 Del Method O2 Flow Rate 12/08/23 07:56 Room Air 12/08/23 07:36 12/08/23 07:31 Room Air 12/08/23 04:08 Room Air 12/08/23 03:15 2 12/07/23 23:49 2 12/07/23 23:48 Room Air 12/07/23 22:01 Laboratory Results 12/08/23 12/08/23 12/07/23 Range/Units 08:18 06:16 21:14 WBC 6.00 (4.8-10.8) K/ul RBC 4.73 (4.70-6.10) M/uL Hgb 14.6 (14.0-18.0) g/dl Hct 42.6 (42.0-52.0) % MCV 90.1 (80.0-100.0) fL MCH 30.9 (25.0-34.0) pg MCHC 34.3 (32.0-36.0) g/dL RDW Std Deviation 49.6 H (36.4-46.3) fL RDW Coeff of Tobi 15.0 H (11.5-14.5) % Plt Count 368 (130-400) K/uL MPV 10.3 (9.4-12.4) fL PT 24.7 H (9.0-12.0) Seconds INR 2.4 H (0.9-1.1) Sodium 137 (136-145) mmol/L Potassium 4.1 (3.5-5.1) mmol/L Chloride 99 (98-107) mmol/L Carbon Dioxide 33 H (21-32) mmol/L Anion Gap 5 (3-11) BUN 13 (6-23) mg/dl Creatinine 1.27 (0.6-1.4) mg/dl Est Cr Clr Drug Dosing 62.3 ml/min Est GFR ( Amer) 74.3 ml/min Est GFR (Non-Af Amer) 64.1 ml/min BUN/Creatinine Ratio 10.2 (10-20) Glucose 115 H (70-99(Fasting)) mg/dl POC Glucose 103 H 79 (70-99) mg/dl Calcium 9.2 (8.6-10.3) mg/dl Phosphorus 2.9 (2.5-4.9) mg/dl Magnesium 1.8 (1.7-2.4) mg/dl Troponin I High Sens (0-20) pg/ml B-Natriuretic Peptide (0-100) pg/ml 12/07/23 12/07/23 12/07/23 Range/Units 20:25 17:02 12:02 WBC (4.8-10.8) K/ul RBC (4.70-6.10) M/uL Hgb (14.0-18.0) g/dl Hct (42.0-52.0) % MCV (80.0-100.0) fL MCH (25.0-34.0) pg MCHC (32.0-36.0) g/dL RDW Std Deviation (36.4-46.3) fL RDW Coeff of Tobi (11.5-14.5) % Plt Count (130-400) K/uL MPV (9.4-12.4) fL PT (9.0-12.0) Seconds INR (0.9-1.1) Sodium (136-145) mmol/L Potassium (3.5-5.1) mmol/L Chloride (98-107) mmol/L Carbon Dioxide (21-32) mmol/L Anion Gap (3-11) BUN (6-23) mg/dl Creatinine (0.6-1.4) mg/dl Est Cr Clr Drug Dosing ml/min Est GFR ( Amer) ml/min Est GFR (Non-Af Amer) ml/min BUN/Creatinine Ratio (10-20) Glucose (70-99(Fasting)) mg/dl POC Glucose 77 155 H 86 (70-99) mg/dl Calcium (8.6-10.3) mg/dl Phosphorus (2.5-4.9) mg/dl Magnesium (1.7-2.4) mg/dl Troponin I High Sens (0-20) pg/ml B-Natriuretic Peptide (0-100) pg/ml 12/07/23 12/07/23 Range/Units 11:56 08:38 WBC (4.8-10.8) K/ul RBC (4.70-6.10) M/uL Hgb (14.0-18.0) g/dl Hct (42.0-52.0) % MCV (80.0-100.0) fL MCH (25.0-34.0) pg MCHC (32.0-36.0) g/dL RDW Std Deviation (36.4-46.3) fL RDW Coeff of Tobi (11.5-14.5) % Plt Count (130-400) K/uL MPV (9.4-12.4) fL PT (9.0-12.0) Seconds INR (0.9-1.1) Sodium 133 L (136-145) mmol/L Potassium 4.3 D (3.5-5.1) mmol/L Chloride 98 (98-107) mmol/L Carbon Dioxide 31 (21-32) mmol/L Anion Gap 4 (3-11) BUN 14 (6-23) mg/dl Creatinine 1.25 (0.6-1.4) mg/dl Est Cr Clr Drug Dosing 63.3 ml/min Est GFR ( Amer) 75.7 ml/min Est GFR (Non-Af Amer) 65.3 ml/min BUN/Creatinine Ratio 11.2 (10-20) Glucose 100 H (70-99(Fasting)) mg/dl POC Glucose (70-99) mg/dl Calcium 9.1 (8.6-10.3) mg/dl Phosphorus (2.5-4.9) mg/dl Magnesium (1.7-2.4) mg/dl Troponin I High Sens 44.0 H (0-20) pg/ml B-Natriuretic Peptide 1963 H (0-100) pg/ml Medications Administered Current Inpatient Medications Acetaminophen (Acetaminophen 325 Mg Tab) 650 mg PO Q4H PRN PRN Reason: Pain or Fever Stop: 01/06/24 02:24 Last Admin: 12/08/23 07:36 Dose: 650 mg Acyclovir (Acyclovir 400 Mg Tab) 400 mg PO DAILY JOSE Stop: 01/06/24 08:59 Last Admin: 12/07/23 08:20 Dose: 400 mg Albuterol (Albuterol Hfa 8 Gm Inhaler) 2 puffs INH Q6H PRN PRN Reason: Shortness Of Breath/COUGH Stop: 01/06/24 02:24 Allopurinol (Allopurinol 100 Mg Tab) 100 mg PO DAILY JOSE Stop: 01/06/24 08:59 Last Admin: 12/07/23 08:20 Dose: 100 mg Dapsone (Dapsone 25 Mg Tab) 25 mg PO DAILY JOSE Stop: 01/06/24 08:59 Last Admin: 12/07/23 08:21 Dose: 25 mg Dextrose (Dextrose 50% 50 Ml Syringe) 25 - 50 ml IV UD PRN; Protocol PRN Reason: Hypoglycemia Protocol Stop: 01/06/24 02:24 Duloxetine HCl (Duloxetine Hcl 20 Mg Cap) 40 mg PO DAILY JOSE Stop: 01/06/24 08:59 Last Admin: 12/07/23 08:21 Dose: 40 mg Finasteride (Finasteride 5 Mg Tab) 5 mg PO DAILY JOSE Stop: 01/06/24 08:59 Last Admin: 12/07/23 08:17 Dose: 5 mg Fish Oil ([place]-3 (Purified Fish Oil) 1 Gm Cap) 2 gm PO BIDM JOSE Stop: 01/06/24 16:59 Last Admin: 12/08/23 08:41 Dose: 2 gm Folic Acid (Folic Acid 400 Mcg Tab) 400 mcg PO DAILY JOSE Stop: 01/06/24 08:59 Last Admin: 12/07/23 08:21 Dose: 400 mcg Furosemide (Furosemide 40 Mg/4 Ml Vial) 40 mg IV ONE ONE Stop: 12/08/23 08:51 Glucagon (Glucagon For Inj 1 Mg Vial) 1 mg SQ UD PRN; Protocol PRN Reason: Hypoglycemia Protocol Stop: 01/06/24 02:24 Glucose (Glucose 10 Tab/Tube) 4 - 8 tab PO UD PRN; Protocol PRN Reason: Hypoglycemia Treatment Stop: 01/06/24 02:24 Glucose (Glucose 40% Gel 15 Gm Tube) 15 - 30 gm PO UD PRN; Protocol PRN Reason: Hypoglycemia Protocol Stop: 01/06/24 02:24 Insulin Aspart (Insulin Aspart Per Unit Charge) 0 units SC ACHS JOSE Stop: 01/06/24 07:29 Last Admin: 12/08/23 08:47 Dose: Not Given Levothyroxine Sodium (Levothyroxine Sodium 50 Mcg Tablet) 50 mcg PO DAILYBB JOSE Stop: 04/26/24 06:29 Last Admin: 12/08/23 08:09 Dose: 50 mcg Magnesium Chloride (Magnesium Chloride W/Calcium 64mg Delayed Rel Tab) 64 mg PO BID JOSE Stop: 01/06/24 08:59 Last Admin: 12/08/23 08:41 Dose: 64 mg Midodrine (Midodrine Hcl 10 Mg Tab) 20 mg PO TID@0800,1200,1700 JOSE Stop: 01/06/24 07:59 Last Admin: 12/08/23 08:41 Dose: Not Given Miscellaneous (Tenofovir Alafenamide 25 Mg - Order Awaiting Action) 1 each N/A QS JOSE Stop: 01/06/24 07:59 Last Admin: 12/08/23 08:42 Dose: Not Given Miscellaneous (Carbohydrates For Hypoglycemia ) 15 - 30 gm PO UD PRN PRN Reason: Hypoglycemia Protocol Stop: 01/06/24 02:24 Nitroglycerin (Nitroglycerin Sl 0.4 Mg/Tab Tab) 0.4 mg SL Q5M PRN PRN Reason: Chest Pain Stop: 01/06/24 02:24 Oxycodone HCl (Oxycodone Hcl Ir 5 Mg Tab (Immediate Release)) 5 mg PO Q4H PRN PRN Reason: Pain Stop: 12/21/23 02:24 Pantoprazole Sodium (Pantoprazole 40 Mg Tab) 40 mg PO DAILY JOSE Stop: 01/06/24 08:59 Last Admin: 12/07/23 08:17 Dose: 40 mg Polyethylene Glycol (Polyethylene (Miralax) 17 Gm Pack) 17 gm PO DAILY PRN PRN Reason: Constipation Stop: 01/06/24 02:24 Vitamin D (Cholecalciferol 125 Mcg (5,000 Units) Tab) 125 mcg PO DAILY OJSE Stop: 01/06/24 08:59 Last Admin: 12/07/23 08:20 Dose: 125 mcg Vitamin D (Cholecalciferol 25 Mcg (1000 Units) Tab) 25 mcg PO DAILY JOSE Stop: 01/06/24 08:59 Last Admin: 12/07/23 08:21 Dose: 25 mcg Warfarin Sodium (Warfarin Sod 1.25 Mg Tab) 1.25 mg PO DAILY@1600 JOSE Stop: 01/06/24 15:59 Last Admin: 12/07/23 17:27 Dose: 1.25 mg
[2023-12-08] MEDS: FUROSEMIDE 40 MG/4 ML VIAL IV ONE (10:03)
[2023-12-08 11:31] VITALS: TEMP 98.6; O2SAT 96
--- NOTE | 2023-12-08 15:48 | Discharge Summary ---
Date of Service December 08, 2023 Admission HPI Per Admitting Provider 53-year-old male with past med history significant for type 2 diabetes, hyperlipidemia, obstructive sleep apnea, paroxysmal atrial fibrillation, cardiac amyloidosis, chronic heart failure with preserved ejection fraction, nonocclusive coronary disease, CKD stage III, congenital solitary right kidney, BPH, peripheral neuropathic pain, chemotherapy-induced neuropathy, degeneration of lumbosacral sacral disc, multiple myeloma without remission, statin intolerance, history of C diff,history of Salmonella gastroenteritis, comes because of flulike symptoms. Patient states his was diagnosed with COVID a week ago. He was having some runny nose for 2 days that got resolved. Feeling fatigue and weak. He was also getting short of breath and could not take deep breath. Was worried about COVID and came to the ER. BioFire is negative. But CT scan showing bilateral moderate pleural effusions. Patient states when he was diagnosed with cancer in 2013 he had pleural effusions and had a thoracocentesis at that time. States takes torsemide as needed. Used to take torsemide daily but because of dehydration currently taking as needed. He took 1 dose last week. He took 1 dose yesterday because of shortness of breath. Usually takes when his ankle swells. Denies any fevers. Has some headache but that got resolved. Vision is okay. He had no earache. No runny nose. No sore throat. He states he has had difficulty swallowing since last 1 year. Generally he tries to eat soft food. No nausea. Has some lower abdominal discomfort from constipation. States somewhat constipated since last 6 months. Denies any blood in stools or black stools. Micturating okay. No rash. Ambulates with a cane. Hemodynamics are okay. Past medical history. As mentioned above Past surgical history.Colonoscopy. Cystourethroscopy with plans prostatic implant. EGD. EGD with endoscopic ultrasound. S/p autologous stem cell transplantation 2014. Bilateral cataract surgery. Vasectomy. Social history. . No smoking. Alcohol rarely. No drug use. Family history. No family history on file Admission Exam Per Admitting Provider General- Not in distress Head- atraumatic Eyes- PERRL. ENT- oropharynx clear Neck- supple, no JVD. Lungs- clear to auscultation no wheezing or crackles. Heart- regular rhythm; no murmur, no gallop. Abdomen- normal bowel sounds, soft, nontender, no distension. Extremities- no pretibial edema, no erythema seen. Neuro- alert, oriented PERRL, no facial palsy; no dysarthria; moves extremities. Principal Diagnosis Pleural effusion, acute on chronic chf Discharge Exam General- WD/WN M in NAD Head- atraumatic Eyes- PERRL. ENT- oropharynx clear Neck- supple, no JVD. Lungs- no wheezing , + minimal crackles at bases bilaterally (much improved) Heart- regular rhythm; no murmur Abdomen- normal bowel sounds, soft, nontender, no distension. Extremities- no pretibial edema, no erythema seen. Neuro- alert, oriented PERRL, no facial palsy; no dysarthria; moves extre mities. Discharge Data Allergies Allergy/AdvReac Type Severity Reaction Status Date / Time [id number] Reductase AdvReac Intermediate MUSCLE Verified 12/06/23 19:37 Inhibitor PAIN WITH ATORVASTATIN & ZETIA NSAIDS (Non-Steroidal AdvReac Unknown Advised by Verified 12/06/23 19:37 Anti-Inflamma nephrology to avoid d/t CKD Consultations 12/06/23 20:33 ED Decision to Admit Stat 12/07/23 08:00 Consult Pulmonology Routine Ordered Studies 12/06/23 20:33 CT chest diagnostic w con Stat FINDINGS: Lungs: Subsegmental atelectasis seen in bilateral lung bases. No mass. Pleural space: Bilateral moderate sized pleural effusions are seen. No pneumothorax. Heart: There is mild cardiomegaly. No significant pericardial effusion. No significant coronary artery calcifications. Ascending aorta caliber measures 3.6 cm in diameter. Bones/joints: Multiple lucent foci seen in the thoracic vertebral bodies, measuring up to 12 mm in diameter.. No dislocation. Soft tissues: Unremarkable. Lymph nodes: Unremarkable. No enlarged lymph nodes. Liver: There is reflux of contrast into the hepatic veins and IVC. Kidneys and ureters: Chronic left renal atrophy. IMPRESSION: 1. Bilateral moderate sized pleural effusions 2. No acute pulmonary embolism 3. Multiple radiolucent foci in the thoracic spine. This can be further assessed on MRI study. Hospital Course (1) SOB (shortness of breath): 53 yo male with past med history significant for type 2 diabetes, hyperlipidemia, obstructive sleep apnea, paroxysmal atrial fibrillation, cardiac amyloidosis, chronic heart failure with preserved ejection fraction, nonocclusive coronary disease, CKD stage III, congenital solitary right kidney, BPH, peripheral neuropathic pain, chemotherapy-induced neuropathy, degeneration of lumbosacral sacral disc, multiple myeloma without remission, statin intolerance, history of C diff,history of Salmonella gastroenteritis, comes because of flulike symptoms. Patient states his was diagnosed with COVID a week ago. He was having some runny nose for 2 days that got resolved. Feeling fatigue and weak. He was also getting short of breath and could not take deep breath. Was worried about COVID and came to the ER. BioFire is negative. But CT scan showing bilateral moderate pleural effusions. Patient states when he was diagnosed with cancer in 2013 he had pleural effusions and had a thoracocentesis at that time. States takes torsemide as needed. Used to take torsemide daily but because of dehydration currently taking as needed. He took 1 dose last week. He took 1 dose yesterday because of shortness of breath. Usually takes when his ankle swells. Denies any fevers. Has some headache but that got resolved. Vision is okay. He had no earache. No runny nose. No sore throat. He states he has had difficulty swallowing since last 1 year. Generally he tries to eat soft food. No nausea. Has some lower abdominal discomfort from constipation. States somewhat constipated since last 6 months. Denies any blood in stools or black stools. Micturating okay. No rash. Ambulates with a cane. Hemodynamics are okay. Shortness of breath Bilateral pleural effusions BioFire negative Will monitor in the hospital Nebs as needed for now Consulted pulmonary for recommendations - diuresis for now, no thoracentesis at this time Pt responded well to IV lasix, he is breathing comfortably on RA, without any more shortness of breath Symptoms likely secondary to syst. and diast. chf (pt on torsemide prn at home) Will follow up with PCP next week - cont. with torsemide Recommend obtaining BMP at next PCP visit Recommend morning weights at home Type 2 diabetes hold metformin Insulin sliding scale monitor Obstructive sleep apnea CPAP nightly with 2lts oxygen CKD stage III Baseline creatinine 1.7 creatinine 1.3 on admission monitor renal function History of chronic heart failure with reduced ejection fraction Likely symptoms secondary acute on chronic chf Cardiac amyloidosis EF of 45-50% echo in 2022 on torsemide as needed responded well to IV lasix - cont. w/ torsemide on discharge History of hypotension on Midodrine History of multiple myeloma Looks like last chemo on 11/14/23 per epic. Chemo as per heme-onc. Seems plan for Cart therapy at [facility] in January as per patient. On dapsone, acyclovir and tenofovir History of A-fib On Coumadin amiodarone stopped monitor PT/INR Hypothyroidism On Synthyroid History of nonocclusive CAD On Coumadin and Repatha BPH Proscar GERD Protonix Total Time Total Time Spent Total Time Spent (In Minutes): 40 Discharge Plan Discharge Items Patient Disposition: Home - Self-Care Reason For Visit: SOB, PLEURAL EFFUSIONS Discharge Diagnosis: Pleural effusion, acute on chronic chf Activity: Per Instructions section Non-emergency contact: Primary Care Provider Call non-emergency contact if: you have any medication questions and your symptoms worsen Follow-up/Referrals: Jaime Garcia MD [Primary Care Provider] - (Date & Time 12/12/2023 1:20 PM Provider Shruti Felix CRNP Department Family Medicine [facility] ) Diet: Carb Consistent or DM2 Diet Texture: Easy to Chew Nithin Attending Provider Instructions: Follow up with primary care physician within 1 week. The appointment was scheduled for you for December 11. Take torsemide tomorrow and day after tomorrow then you can take it every other day. Monitor your weight - weigh yourself every morning if you can and record your weight. Have blood work done to check your electrolytes and kidney function on December 11 as well. [facility] Advisor Provider Instructions: Call your Primary Care doctor if any of the following symptoms or problems start or get worse: * Shortness of breath or difficulty breathing * Wake up at night short of breath * Chest pain * Cough * Swelling of your hands, feet, or legs * More fatigued or tired with your normal activity * Palpitations - sudden fast heart beats WEIGHT * Weigh yourself every morning after using the bathroom. * Use the same scale. * Wear the same amount of clothing. * Write your weight down on a chart. * Call your Primary Care doctor if you gain more than 2-3 pounds in 1-2 days. MEDICATIONS * Use this discharge instruction sheet for medication instructions. * Take your medications at the time your doctor ordered. * Do not skip a dose of your medicines. * If you miss a dose of medicine, take it as soon as possible, but DO NOT DOUBLE A DOSE. * Read your medicine information when you get home. * Know all of the side effects of your medicine. If in doubt, ask your pharmacist * Call your Primary Care doctor's office if you have any side effects. * Be sure all of your doctors know what medicine and herbs you take (including cold, flu, and herbal medicine). Take the following with you to your follow-up doctor appointments: * Weight Chart * Medication List * List of questions Do not drink excessive alcohol, beer or wine. Pending Studies at Discharge: No Stand-Alone Forms: My [facility] [place], Smoking Cessation Medications and DC Order Prescriptions: Continued ondansetron HCl 8 mg tablet 8 mg PO TID PRN (Reason: Nausea And Vomiting) folic acid 400 mcg tablet 400 mcg PO DAILY pantoprazole 20 mg tablet,delayed release (DR/EC) 20 mg PO DAILY metformin 500 mg tablet extended release 24 hr 1,000 mg PO DAILY oxycodone 5 mg tablet 5 mg PO Q4H PRN (Reason: Pain) midodrine 10 mg tablet 20 mg PO TID Rx Instructions: at 8am ,12pm and 5pm. duloxetine 20 mg capsule,delayed release(DR/EC) 40 mg PO DAILY cholecalciferol (vitamin D3) [Vitamin D3] 50 mcg (2,000 unit) capsule 6,000 unit PO DAILY Mag 64 64 mg tablet,delayed release (DR/EC) 64 mg PO BID icosapent ethyl 1 gram capsule 2 g PO BIDM Repatha SureClick 140 mg/mL pen injector 140 mg SUBCUT .[id number] Rx Instructions: PER PT "HAVEN'T RECEIVED FROM PHARMACY FOR SOME TIME NOW". LAST FILLED 09/14/23. Vemlidy 25 mg tablet 25 mg PO DAILY acyclovir 400 mg Tablet 400 mg PO DAILY levothyroxine 50 mcg tablet 50 mcg PO DAILYBB dexamethasone 4 mg tablet 20 mg PO DIRECTED Rx Instructions: TAKES 2 X MONTH, ON WEEKS THAT HE DOESN'T TAKE CHEMO PER GMG dapsone 25 mg tablet 25 mg PO DAILY finasteride 5 mg tablet 5 mg PO DAILY potassium chloride 10 mEq tablet extended release 20 meq PO DAILY Qty: 60 0RF polyethylene glycol 3350 [Miralax] 17 gram Powder In Packet 17 g PO DAILY PRN (Reason: Constipation) torsemide 10 mg tablet 10 mg PO QAM PRN (Reason: EDEMA/FLUID RETENTION) prochlorperazine maleate [Compazine] 10 mg Tablet 10 mg PO Q6H PRN (Reason: Nausea) allopurinol 100 mg Tablet 100 mg PO DAILY epinephrine [EpiPen] 0.3 mg/0.3 mL Auto-Injector 0.3 mg IM DIRECTED PRN (Reason: SEVERE ALLERGIC REACTION) albuterol sulfate 90 mcg/actuation Hfa Aerosol Inhaler 2 puff INHALATION Q6H PRN (Reason: Shortness Of Breath/COUGH) warfarin 2.5 mg tablet 1.25 mg PO QPM Discharge Orders: Discharge Order- CHF (Routine); Ordered 12/08/23 Ordered By: Eddie Bennett/Other Patient Handouts: Managing Type 2 Diabetes Admission Data Admit Date/Time: 12/06/23 23:53 Attending Provider: Eddie Conn Admit Provider: Adrien Tavares Primary Care Provider: Jaime Garcia Other Providers: Adrien Tavares; Galina Ramires
[2023-12-08 15:56] VITALS: BP 118/82; PULSE 63
== END 2023-12-08 16:18 | disposition home or self-care (01) | DRG 292 ==
LOC: ED 15:32 → 2N 23:53

== ENCOUNTER 2024-05-13 05:47 | Inpatient (IN) ==
--- OUTSIDE RECORDS SUMMARY | 2024-05-13 05:56 | External Medical Summary | Summary of Care ---
Author Name Unknown Organization [facility] Address [address] [place] [address] Phone [phone] Care Team Providers Care Assistant Finance Director Name Role Phone Jaime Garcia MD Primary Care Provide r Encounter Details Date Type Department Care Team (Late st Contact Info) Description 05/10/2024 Documentation [facility] [address] [place] [address] Infusion, Nurse Home [address] [place] [address] Allergies Active Allergy Reactions Criticality Noted Date Comments Atorvastatin Muscle pain High 03/30/2019 Ezetimibe Muscle pain High 01/25/2020 documented as of this encounter (statuses as of 05/10/2024) Medications Medication Sig Dispensed Refills Start Date End Date Status CPAP every night at bedtime. Active oxygen IN GAS Use 2 L/min(Oxygen) as directed at bedtime. 1 Each 11/11/2020 Active OneTouch Ultra Blue In Vitro Strip (Glucose Blood)Indications: Type 2 diabetes mellitus with hemoglobin A1c goal of less than 7.0% (HCC) Use as directed daily. Test once daily DxE11.9 100 Strip 5 03/02/2021 Active LancetsIndications :Type 2 diabetes mellitus with hemoglobin A1c goal of less than 7.0% (HCC) Test once daily DxE11.9. 100 Each 5 03/02/2021 Active Acyclovir 400 MG Oral Tablet (Zovirax)Indicatio ns:Lambda light chain myeloma (HCC) Take one tablet once daily 180 Tablet 3 12/14/2021 Active Polyethylene Glycol 3350 17 GM Oral Packet Take 1 Packet by mouth daily as needed. Active Repatha SureClick 140 MG/ML Subcutaneous Solution Auto-injector (evolocumab)Indica tions:Dyslipidemia , goal LDL below 70 INJECT 140MG (1 INJECTION) UNDER THE SKIN EVERY 14 DAYS. REMOVE FROM REFRIGERATOR 30 MINUTES PRIOR TO INJECTION 6 mL 3 06/15/2023 4 Active Pen Lorida 32G X 4 MM Use as directed. Inject Lantus once daily. 50 Each 3 07/19/2023 Active Pantoprazole Sodium 20 MG Oral Tablet Delayed Release (Protonix)Indicati ons:Gastroesophage al reflux disease without esophagitis TAKE ONE TABLET BY MOUTH EVERY DAY IN THE MORNING 90 Tablet 2 08/31/2023 4 Active Dexcom G7 SensorIndications: Type 2 diabetes mellitus with stage 3b chronic kidney disease, without long-term current use of insulin ([facility]) Use as directed to check blood sugars daily. Change every 10 days 9 Each 3 09/01/2023 Active Albuterol Sulfate HFA 108 (90 Base) MCG/ACT Inhalation Aerosol SolutionIndication s:Acute bronchitis, antibiotics not indicated Inhale 2 Puffs by mouth every 6 hours as needed for Cough or Shortness of Breath. 54 g 1 12/19/2023 Active Levothyroxine Sodium 50 MCG Oral Tablet (Levoxyl)Indicatio ns:Hypothyroidism due to amiodarone TAKE 1 TABLET BY MOUTH DAILY AT LEAST 30 MINUTES PRIOR TO FIRST MEAL OF THE DAY OR OTHER MEDICATIONS 90 Tablet 3 12/23/2023 5 Active metFORMIN HCl ER 500 MG Oral Tablet Extended Release 24 Hour (Glucophage XR)Indications:Typ e 2 diabetes mellitus with hemoglobin A1c goal of less than 7.0% ([facility]) take two tablets by mouth in the morning 180 Tablet 1 01/04/2024 Active DULoxetine HCl 20 MG Oral Capsule Delayed Release Particles (Cymbalta) Take 2 Capsules by mouth in the morning. 180 Capsule 1 01/02/2024 Active Prochlorperazine Maleate 10 MG Oral Tablet (Compazine)Indicat ions:Nausea and vomiting, unspecified vomiting type TAKE ONE TABLET BY MOUTH EVERY SIX HOURS NEEDED FOR NAUSEA 40 Tablet 02/13/2024 Active Folic Acid 400 MCG Oral TabletIndications: Low folate TAKE ONE TABLET BY MOUTH IN THE MORNING 90 Tablet 3 02/23/2024 Active Vemlidy 25 MG Oral Tablet (Tenofovir Alafenamide Fumarate) Take 1 tablet by mouth in the morning. 90 Tablet 1 03/12/2024 Active Apixaban 5 MG Oral Tablet (Eliquis) Take 1 Tablet by mouth in the morning and 1 Tablet before bedtime. 180 Tablet 1 03/26/2024 Active Fluconazole 200 MG Oral Tablet (Diflucan) Take 1 Tablet by mouth in the morning. 90 Tablet 1 03/26/2024 Active Fludrocortisone Acetate 0.1 MG Oral Tablet (Florinef) take 1/2 tablet by mouth daily 50 Tablet 03/26/2024 Active oxyCODONE HCl 5 MG Oral Tablet (Oxy IR)Indications:Mul tiple myeloma in relapse (HCC) Take 1 Tablet by mouth every 4 hours as needed for breakthrough pain. 30 Tablet 03/21/2024 Active Hydrocortisone 5 MG Oral Tablet (Cortef) take five tablets by mouth in the morning 450 Tablet 1 03/28/2024 Active Additional Information Patient taking differently: take three tablets by mouth in the morning, Reported on 05/01/2024 Nystatin 148176 UNIT/ML Mouth/Throat SuspensionIndicati ons:Multiple myeloma in relapse (HCC) Swish and swallow 5 mL in the morning and 5 mL at noon and 5 mL in the evening and 5 mL before bedtime. 60 mL 1 04/16/2024 Active Privigen 40 GM/400ML Intravenous Solution (Immune Globulin Human-IVIG 10%)Indications:Mu ltiple myeloma in relapse (HCC) Administer 15 gm IV x 2 days every month. 300 mL 11 04/16/2024 Active Mirtazapine 15 MG Oral Tablet (Remeron)Indicatio ns:Decreased appetite Take 1 Tablet by mouth at bedtime. 30 Tablet 5 05/08/2024 Active Finasteride 5 MG Oral Tablet (Proscar) TAKE 1 TABLET BY MOUTH IN THE MORNING 90 Tablet 3 05/09/2024 Active Acetaminophen 325 MG Oral Tablet (Tylenol)Indicatio ns:Multiple myeloma in relapse (HCC) Take 2 Tablets by mouth as needed (for mild to moderate reaction (infusion reaction protocol)). 05/09/2024 Active diphenhydrAMINE HCl 50 MG/ML Injection Solution (Benadryl)Indicati ons:Multiple myeloma in relapse (HCC) 25 mg IV push, may repeat x 1 dose, then 50 mg every 2 - 3 hours as needed for anaphylaxis 2 mL 11 05/09/2024 Active Sodium Chloride 0.9 % Intravenous SolutionIndication s:Multiple myeloma in relapse (HCC) TO BE ADMINISTERED IN THE EVENT OF ANAPHYLACTIC REACTION 1000 mL 05/09/2024 Active dexAMETHasone Sodium Phosphate 4 MG/ML Injection Solution (Decadron)Indicati ons:Multiple myeloma in relapse (HCC) Inject 8 mg intravenously as needed for Anaphylaxis (severe allergic reaction). 2 mL 11 05/09/2024 Active diphenhydrAMINE HCl 50 MG/ML Injection Solution (Benadryl)Indicati ons:Multiple myeloma in relapse (HCC) Inject 25 mg intravenously as needed (Mild to moderate infusion reaction (infusion reaction protocol)). 1 mL 05/09/2024 Active EPINEPHrine (Anaphylaxis) 1 MG/ML Injection SolutionIndication s:Multiple myeloma in relapse (HCC) Inject 0.3 mL into a large muscle as needed for Anaphylaxis (severe allergic reaction). 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 Chronic heart failure with preserved ejection fr action 06/10/2022 Congenitally solitary right kidney 05/31/2022 BPH with obstruction/lower urinary tract symptom s 05/31/2022 Chronic kidney disease, stage 3b 03/22/2022 Overview: Per CKD protocol Immunosuppressed status [...] as of this encounter (statuses as of 05/10/2024) Resolved Problems Problem Noted Date Diagnosed Date Resolved Date Type 2 diabetes mellitus wit h stage 3b chronic kidney disease, without long-term current use of insulin 11/09/2022 11/24/2022 Hepatic cirrhosis 09/08/2022 11/11/2022 Type 2 diabetes mellitus wit h stage 3b chronic kidney disease 03/22/2022 05/08/2024 Overview: Per CKD protocol Chronic kidney disease, stage 3a 02/24/2021 02/25/2022 [...] as of this encounter (statuses as of 05/10/2024) Immunizations Name Administration Dates Next Due COVID-19, LNP-s, No Preserve , Azar-sucrose, Ages 12+ (Pfizer) 10/06/2021,06/23/2021 Hepatitis B, 20+ yrs 11/20/2019,06/21/2019,05/22 Pneumococcal Conjugate Vacc, 13 Valent (Prevnar) 05/13/2020 Pneumococcal Polysaccharide PPV23 (Pneumovax) 05/22/2019 Seasonal Influenza, PF, 6 M & above, IM , (FluLaval or Fluzone) 08/22/2023,06/10/2022,07/23/2021,07/31,05/22/2019 Seasonal Influenza, Trivalen t, (IIV3), PF, (Fluzone) 05/13/2018 TDAP (age 10 and older)(Boostrix) 01/02/2019 [...] as of this encounter Progress Notes * Jessica Browning, BOBBY - 05/10/2024 3:28 PM EDT [facility] Infusion Diagnosis Related to Therapy : Other (comments) (nonfamilial hypogammaglobulinemia) Medication Administered: Privigen (IVIG) Dose: 15 grams (Day 1 of 2) Dosing Interval: 4 weeks (monthly) Date of Infusion: 05/10/24 Patient Tolerated Therapy: Yes Next Scheduled Infusion Date: 05/11/24 (then 06/07/24 & 06/08/24) Next Labs Due: (per provider) Number of Refills Remaining?: 22 Treatment completed as ordered: Yes documented in this encounter Plan of Treatment Upcoming Encounters Date Type Department Care Team (Late st Contact Info) Description 05/11/2024 11:40 AM EDT [facility] [address] [facility] [place] [phone] Tona Mondragon DO [address] [facility] [place] [address] 05/11/2024 2:00 PM EDT Home Visit [facility] [address] [place] [address] Beth Berry RN [address] [place] [address] 05/15/2024 2:00 PM EDT Telemedicine [facility] [place] [address] [facility] [place] [address] Thierno Patel PA-C [address] [facility] [place] [address] 05/21/2024 2:30 PM EDT Scheduled Telephone [facility] [address] [place] [address] Yecenia Back, JORGE [address] [facility] [place] [address] 06/05/2024 8:40 AM EDT Office Visit Family Medicine [address] [place] [phone] Jaime Garcia MD [address] [place] [address] [place] [address] 06/07/2024 1:00 PM EDT Home Visit [facility] [address] [place] [address] Beth Berry, BOBBY [address] [place] [address] 06/08/2024 1:45 PM EDT Home Visit [facility] [address] [place] [address] Beth Berry RN [address] [place] [address] 06/08/2024 2:30 PM EDT [facility], [facility] [address] [place] [address] Sulma Seth RN [address] [place] [address] 06/15/2024 10:00 AM EDT [facility] [address] [facility] [place] [address] Rosalio Amaral MD [address] [facility] [place] [address] 07/10/2024 9:30 AM EDT Office Visit Cardiology, [facility] [address] [place] [address] Beth Salter CRNP [address] [facility] [place] [address] 10/30/2024 1:45 PM EST Office Visit Urology, [facility] [address] [place] [address] Devyn Paniagua MD [address] [place] [phone] 01/01/2025 10:20 AM EDT Office Visit Otolaryngology [facility] [address] [place] [address] Haley Aguero PA-C [address] [place] [address] Health Maintenance Due Date Last Done Comments Cologuard 2015 Fecal Occult Blood Test 2015 Sigmoidoscopy 2015 Depression Screening 01/05/2022 01/05/2021 Diabetic Foot Exam 12/14/2022 12/14/2021, 0 10/15/2020, 06/25/2019 COVID-19 Vaccine ( season) 2023 10/06/2021, 06/24/2021, 06/23/2021 Influenza Vaccine (FLU shot) (#1) 2024 08/22/2023, 06/10/2022, 07/23/2021, Additional history exists Pneumococcal Vaccine: Pediatrics (0 to 5 Years) and At-Risk Patients (6 to 64 Years) (3 of 3 - PPSV23 or PCV20) 05/22/2024 05/13/2020, 05/22/2019 TSH 07/25/2024 07/25/2023, 03/12, 01/31/2023, Additional history exists GFR 11/07/2024 05/07/2024, 04/12, 04/23/2024, Additional history exists HbA1c 11/08/2024 05/08/2024, 06/13, 04/14/2023, Additional history exists Diabetic Eye Exam 01/18/2025 01/19/2024, , 07/11/2023, Additional history exists Albumin/Creatinine Ratio 01/26/2025 024, 12/30/2023, 09/08/2023, Additional history exists CKD PHOS USE SMARTSET 19114 03/09/202502/11, 03/08/2024, 03/07/2024, Additional history exists CKD HGB USE SMARTSET 05191 05/07/202505/07, 04/30/2024, 04/23/2024, Additional history exists DTap/Tdap Vaccines (2 - Td or Tdap) 01/02/2029 01/02/2019 Colonoscopy 09/09/2031 09/09/2021, 08/13, 09/02/2017 Colorectal Cancer Screening 09/09/2031 Hepatitis B Vaccine Completed 11/20/2019, 06/21/2019, 05/22/2019 Zoster Vaccines Completed 09/30/2020, 07/31/2020 HPV (Gardasil) Vaccine Aged Out No lo nger eligible based on patient's age to complete this topic MENINGOCOCCAL (MENACTRA/MENVEO) Aged Out No longer eligible based on patient's age to complete this topic documented as of this encounter Medical Devices Implanted Type Area Parts Fabricator Device Identifier Shelf Expiration Date Model / Serial / Lot Port Power Mri W/8fr Cath - [id number] Implanted:Qty: 1 on 09/26/2020 by Simone Michelle MD at OR [facility] Right: Chest CR BARD : PERIPHERAL VASCULAR 10/12/2021 [id number] / / [id number] Description:right IJ Lens Intraoc 19.0 - [id number] - [id number] Implanted:Qty: 1 on 02/03/2021 by Chris Sexton MD at OR [facility] Right: Eye [employer] 09/11/2025 [id number] / [id number] / Lens Intraoc 19.0 - [id number] - [id number] Implanted:Qty: 1 on 02/24/2021 by Chris Sexton MD at OR [facility] Left: Eye [employer]OM[employer] 10/12/2025 [id number] / [id number] / [id number] System Urolift - [id number] Implanted:Qty: 2 on 03/17/2023 by Devyn Paniagua MD at OR [facility] N/A: Urethra [employer] 11/18/2023 [id number] / / [id number] System Urolift - [id number] Implanted:Qty: 3 on 03/17/2023 by Devyn Paniagua MD at OR [facility] N/A: Urethra [employer] 11/03/2023 [id number] / / [id number] documented as of this encounter Additional Health Concerns Infection Onset Date Last Indicated Resolved Time Salmonella 09/14/2023 09/14/2023 Respiratory Rule-Out 01/12/2024 01/12/2024 documented as of this encounter Advance Directives * Full Code (Latest Code Status on File) Date Activated Date Inactivated Comments 03/17/2023 8:20 AM 03/17/2023 1:36 PM This order ref lects the patients wishes and were consensually agreed upon. Question Answer Comments Discussion of Advance Directives occurred with: Patient * Full Code Date Activated Date Inactivated Comments 03/17/2023 6:32 AM 03/17/2023 8:20 AM This order ref lects the patients wishes and were consensually agreed upon. Question Answer Comments Discussion of Advance Directives occurred with: Patient * Full Code Date Activated Date Inactivated Comments 09/26/2020 9:24 AM 09/26/2020 3:37 PM This order r eflects the patients wishes and were consensually agreed upon. Care Teams Assistant Finance Director Relationship Specialty Start Date End Date Jaime Garcia MD [address] [place] [address] [place] [phone] PCP - General Family Medicine 10/15/20 documented as of this encounter
--- OUTSIDE RECORDS SUMMARY | 2024-05-13 05:56 | External Medical Summary | Summary of Care ---
Author Name Unknown Organization [facility] Address [address] [place] [address] Phone [phone] Care Team Providers Care Crystal Syrup Maker Name Role Phone Jaime Garcia MD Primary Care Provide r Encounter Details Date Type Department Care Team (Late st Contact Info) Description 05/11/2024 Documentation Home Infusion, [facility] [address] [place] [address] Beth Berry, BOBBY [address] [place] [address] Allergies Active Allergy Reactions Criticality Noted Date Comments Atorvastatin Muscle pain High 03/30/2019 Ezetimibe Muscle pain High 01/25/2020 documented as of this encounter (statuses as of 05/11/2024) Medications Medication Sig Dispensed Refills Start Date [...] 6 mL 3 06/15/2023 4 Active Pen [place] 32G X 4 MM Use as directed. [...] disease, without long-term current use of insulin ([facility]) Use as directed to check blood sugars [...] goal of less than 7.0% ([facility]) take two tablets by mouth in the [...] the morning. 90 Tablet 1 03/26/2024 Active oxyCODONE HCl 5 MG Oral [...] in the morning, Reported on 05/01/2024 Nystatin 282132 UNIT/ML Mouth/Throat SuspensionIndicati ons:Multiple myeloma in relapse [...] hours as needed for anaphylaxis 2 mL 05/09/2024 Active Sodium Chloride 0.9 % Intravenous SolutionIndication s:Multiple myeloma in relapse (HCC) TO BE ADMINISTERED IN THE EVENT OF ANAPHYLACTIC REACTION 1000 mL 05/09/2024 Active dexAMETHasone Sodium Phosphate 4 MG/ML Injection Solution (Decadron)Indicati ons:Multiple myeloma in relapse (HCC) Inject 8 mg intravenously as needed for Anaphylaxis (severe allergic reaction). 2 mL 05/09/2024 Active diphenhydrAMINE HCl 50 MG/ML Injection [...] infusion reaction protocol 2 mL 05/09/2024 Active Fludrocortisone Acetate 0.1 MG Oral Tablet (Florinef) Take 1 tablet by mouth daily. 90 Tablet 3 05/11/2024 Active Hydrocortisone 5 MG Oral Tablet (Cortef) Take 3 tablets by mouth daily. 450 Tablet 3 05/11/2024 Active documented as of this encounter (statuses as of 05/11/2024) Active Problems Problem Noted Date Diagnosed Date [...] without remission 06/14/2014 Overview: Dr Rodriges/ [facility] ADVANCE DIRECTIVE INFORMATION 10/13/2006 Overview: No, Advance Directive brochure offered , patient declined. Degeneration of lumbosacral intervertebral disc 02/19/2005 documented as of this encounter (statuses as of 05/11/2024) Resolved Problems Problem Noted Date Diagnosed Date [...] as of this encounter (statuses as of 05/11/2024) Immunizations Name Administration Dates Next Due COVID-19, [...] as of this encounter Progress Notes * Beth Berry RN - 05/11/2024 4:21 PM EDT [facility] Diagnosis Related to Therapy : Other (comments) (hypogammaglobulinemia) Medication Administered: Privigen (IVIG) (day 2 of 2) Dose: 15gm Dosing Interval: 4 weeks Date of Infusion: 05/11/24 Patient Tolerated Therapy: Yes Next Scheduled Infusion Date: 06/07/24 Next Labs Due: (per provider) Number of Refills Remaining?: 22 Treatment completed as ordered: Yes documented in this encounter Plan of Treatment Upcoming Encounters Date Type Department Care Team (Late st Contact Info) Description 05/15/2024 2:00 PM EDT Telemedicine [facility] [address] [facility] [place] [address] Thierno Patel PA-C [address] [facility] [place] [address] 05/21/2024 2:30 PM EDT Scheduled Telephone [facility] [address] [facility] [place] [address] Yecenia Back RDN [address] [facility] [place] [address] 06/05/2024 8:40 AM EDT Office Visit Family [address] [place] [phone] Jaime Garcia MD [address] [place] [address] [place] [address] 06/07/2024 1:00 PM EDT Home Visit [facility] [address] [address] Beth Berry RN [address] [place] [address] 06/08/2024 1:45 PM EDT Home Visit [facility] [address] [address] Beth Berry RN [address] [place] [address] 06/08/2024 2:30 PM EDT [facility] Visit [facility], [facility] [address] [place] [address] Sulma Seth, RN [address] [place] [address] 06/15/2024 10:00 AM EDT Telemedicine H[facility]ology [facility] Tyree UGARTE [address] [facility] [place] [address] Rosalio Amaral MD [address] [facility] [place] [address] 07/10/2024 9:30 AM EDT Office Visit Cardiology, [facility] [address] [place] [address] Beth Salter CRNP [address] [facility] [place] [address] 10/30/2024 1:45 PM EST Office Visit Urology, [facility] [address] [place] [address] Devyn Paniagua MD [address] [facility] [place] [address] 01/01/2025 10:20 AM EDT Office Visit Otolaryngology [facility] [address] [place] [address] Haley Aguero PA-C [address] [place] [address] Health Maintenance Due Date Last Done Comments Cologuard 2015 Fecal Occult Blood Test 2015 Sigmoidoscopy 2015 Depression Screening 01/05/2022 01/05/2021 Diabetic Foot Exam 12/14/2022 12/14/2021, 0 10/15/2020, 06/25/2019 COVID-19 Vaccine ( - 24 season) 2023 10/06/2021, 06/24/2021, 06/23/2021 Influenza Vaccine [...] Additional history exists CKD PHOS USE SMARTSET 96172 03/09/202502/11, 03/08/2024, 03/07/2024, Additional history exists CKD HGB USE SMARTSET 13303 05/07/202505/07, 04/30/2024, 04/23/2024, Additional history exists DTap/Tdap [...] this encounter Medical Devices Implanted Type Area Family Nurse Practitioner Device Identifier Shelf Expiration Date Model / Serial / Lot Port Power Mri W/8fr Cath - [id number] Implanted:Qty: 1 on 09/26/2020 by Simone Michelle MD at OR [facility] Right: Chest CR BARD : PERIPHERAL VASCULAR 10/12/2021 [id number] / / [id number] Description:right IJ Lens Intraoc 19.0 - [id number] - [id number] Implanted:Qty: 1 on 02/03/2021 by Chris Sexton MD at OR [facility] Right: Eye [employer] 09/11/2025 [id number] / [id number] / Lens Intraoc 19.0 - [id number] - [id number] Implanted:Qty: 1 on 02/24/2021 by Chris Sexton MD at OR [facility] Left: Eye [employer]OM[employer] 10/12/2025 [id number] / [id number] System Urolift - [id number] Implanted:Qty: 2 on 03/17/2023 by Devyn Paniagua MD at OR [facility] N/A: Urethra [employer] 11/18/2023 [id number] / / [id number] System Urolift - [id number] Implanted:Qty: 3 on 03/17/2023 by Devyn Paniagua MD at OR [facility] N/A: Urethra [employer] 11/03/2023 [id number] / / [id number] documented as of this encounter Additional Health [...] and were consensually agreed upon. Care Teams Crystal Syrup Maker Relationship Specialty Start Date End Date Jaime Garcia MD [address] [place] [address] [place] [phone] PCP - General Family Medicine 10/15/20 documented as of this encounter
--- OUTSIDE RECORDS SUMMARY | 2024-05-13 05:56 | External Medical Summary | Summary of Care ---
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 Role Phone Jaime Garcia MD Primary Care Provide r Reason for Referral * Precert (Diagnostic Medical) (Within 10 days (routine)) - Authorized Specialty Diagnoses / Procedures Referred By Contac t Referred To Contact Sleep Disorders Diagnoses Obstructive sleep apnea Nocturnal hypoxemia PAF (paroxysmal atrial fibrillation) (HCC) Chronic heart failure with preserved ejection fraction (HCC) Procedures SLEEP STUDY, W/ CPAP (TREATMENT SETTINGS) Tona Mondragon DO [address] [place] [address] Referral ID Status Reason Start Date Expiration Date V isits Requested Visits Authorized [id number] Authorized 05/11/2024 999 999 * Precert (Diagnostic Medical) (Within 10 days (routine)) - Authorized Specialty Diagnoses / Procedures Referred By Contac t Referred To Contact Sleep Disorders Diagnoses Obstructive sleep apnea Nocturnal hypoxemia PAF (paroxysmal atrial fibrillation) (HCC) Chronic heart failure with preserved ejection fraction (HCC) Procedures SLEEP STUDY, W/O CPAP Tona Mondragon DO [address] [place] [address] Referral ID Status Reason Start Date Expiration Date V isits Requested Visits Authorized [id number] Authorized 05/11/2024 999 999 Reason for Visit * Reason Comments Follow Up Sleep Apnea Discuss Retesting af ter Weight Loss Restless Leg Syndrome Encounter Details Date Type Department Care Team (Late st Contact Info) Description 05/11/2024 11:40 AM EDT Office Visit Sleep Disorders Ctr [facility] [address] [place] [phone] Tona Mondragon DO [address] [place] [address] Obstructive sleep apnea*; Nocturnal hypoxemia; PAF (paroxysmal atrial fibrillation) ([facility]); Chronic heart failure with preserved ejection fraction ([facility]) Allergies Active Allergy Reactions Criticality Noted Date [...] hemoglobin A1c goal of less than 7.0% ([facility]) Use as directed daily. Test once daily DxE11.9 100 Strip 5 03/02/2021 Active LancetsIndication s:Type 2 diabetes mellitus with hemoglobin A1c goal of less than 7.0% ([facility]) Test once daily DxE11.9. 100 Each 5 03/02/2021 Active Acyclovir 400 MG Oral Tablet (Zovirax)Indicati ons:Lambda light chain myeloma (HCC) Take one tablet [...] 6 mL 3 06/15/2023 06/14/20 24 Active Pen Murchison 32G X 4 MM Use as directed. Inject Lantus once daily. 50 Each 3 07/19/2023 Active Pantoprazole Sodium 20 MG Oral Tablet Delayed Release (Protonix)Indicat ions:Gastroesopha geal reflux disease without esophagitis TAKE ONE TABLET BY MOUTH EVERY DAY IN THE MORNING 90 Tablet 2 08/31/2023 08/30/20 24 Active Dexcom G7 SensorIndications :Type 2 diabetes mellitus with stage 3b chronic kidney disease, without long-term current use of insulin ([facility]) Use as directed to check blood sugars daily. Change every 10 days 9 Each 3 09/01/2023 Active Albuterol Sulfate HFA 108 (90 Base) MCG/ACT Inhalation Aerosol SolutionIndicatio ns:Acute bronchitis, antibiotics not indicated Inhale 2 Puffs by mouth every 6 hours as needed for Cough or Shortness of Breath. 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 180 Capsule 1 01/02/2024 Active Prochlorperazine Maleate 10 MG Oral Tablet (Compazine)Indica tions:Nausea and vomiting, unspecified vomiting type TAKE ONE TABLET BY MOUTH EVERY SIX HOURS NEEDED FOR NAUSEA 40 Tablet 02/13/2024 Active Folic Acid 400 MCG Oral TabletIndications [...] in the morning, Reported on 05/01/2024 Nystatin 115025 UNIT/ML Mouth/Throat SuspensionIndicat ions:Multiple myeloma in relapse (HCC) Swish and swallow 5 mL in the morning and 5 mL at noon and 5 mL in the evening and 5 mL before bedtime. 60 mL 1 04/16/2024 Active Privigen 40 GM/400ML Intravenous Solution (Immune Globulin Human-IVIG 10%)Indications:M ultiple myeloma in relapse (HCC) Administer 15 gm IV x 2 days every month. 300 mL 04/16/2024 Active Mirtazapine 15 MG Oral Tablet (Remeron)Indicati ons:Decreased appetite Take 1 Tablet by mouth at bedtime. 30 Tablet 5 05/08/2024 Active Finasteride 5 MG Oral Tablet (Proscar) TAKE 1 TABLET BY MOUTH IN THE MORNING 90 Tablet 3 05/09/2024 05/09/20 25 Active Acetaminophen 325 MG Oral Tablet (Tylenol)Indicati ons:Multiple myeloma in relapse (HCC) Take 2 Tablets by mouth as needed (for mild to moderate reaction (infusion reaction protocol)). 05/09/2024 Active diphenhydrAMINE HCl 50 MG/ML Injection Solution (Benadryl)Indicat ions:Multiple myeloma in relapse (HCC) 25 mg IV push, may repeat x 1 dose, then 50 mg every 2 - 3 hours as needed for anaphylaxis 2 mL 05/09/2024 Active Sodium Chloride 0.9 % Intravenous SolutionIndicatio ns:Multiple myeloma in relapse (HCC) TO BE ADMINISTERED IN THE EVENT OF ANAPHYLACTIC REACTION 1000 mL 05/09/2024 Active dexAMETHasone Sodium Phosphate 4 MG/ML Injection Solution (Decadron)Indicat ions:Multiple myeloma in relapse (HCC) Inject 8 mg intravenously as needed for Anaphylaxis (severe allergic reaction). 2 mL 11 05/09/2024 Active diphenhydrAMINE HCl 50 MG/ML Injection Solution (Benadryl)Indicat ions:Multiple myeloma in relapse (HCC) Inject 25 mg intravenously as needed (Mild to moderate infusion reaction (infusion reaction protocol)). 1 mL 05/09/2024 Active EPINEPHrine (Anaphylaxis) 1 MG/ML Injection SolutionIndicatio ns:Multiple myeloma in relapse (HCC) Inject 0.3 mL into a large muscle as needed for Anaphylaxis (severe allergic reaction). May repeat every 15 min as needed per infusion reaction protocol 2 mL 05/09/2024 Active Fludrocortisone Acetate 0.1 MG Oral Tablet (Florinef) take 1/2 tablet by mouth daily 50 Tablet 03/26/2024 05/11/20 24 Discontinu ed(Refill) documented as of this [...] Sign Reading Time Taken Comments Blood Pressure 110/60 05/11/2024 11:36 AM EDT Pulse 97 05/11/2024 11:36 AM EDT Temperature 36.1 C (96.9 F) 05/11/2024 11:36 AM E DT Respiratory Rate 16 05/11/2024 11:36 AM EDT Oxygen Saturation 95% 05/11/2024 11:36 AM EDT Inhaled Oxygen Concentration - - Weight 63.5 kg (140 lb) 05/11/2024 11:36 AM EDT Height 175.3 cm (5' 9") 05/11/2024 11:36 AM EDT Body Mass Index 20.67 05/11/2024 11:36 AM EDT documented in this encounter Progress Notes * Tona Mondragon DO - 05/11/2024 11:55 AM EDT Sleep Medicine Follow-Up HISTORY: Jerardo Ochoa is a 54 year old male with hx multiple myeloma and amyloidosis, A- fib, T2DM, HTN, and DEBBY, for follow up of severe DEBBY. Split-night PSG 11/16/2015 (BMI 33.45): AHI 40.8, SpO2 roly 85%, PLMI 36.8 (baseline), 11.2 (titration), titrated to 9 cwp with residual AHI 0. Initially seen by me on 06/04/2019 with DEBBY on CPAP, frequent nighttime awakenings. Sleep was worse when he took prednisone (he was undergoing chemo and taking prednisone on the weekends). He had alsogained weight (40 lbs) since starting chemo/prednisone. [place] was 18. Compliance data showed goodefficacy of therapy. Mask fitting was requested. Using CPAP 9 cmH2O. 10/07/20: [place] 10. Residual AHI 1.1 on CPAP 9 cwp. Nocturnal oximetry 11/04-: SpO2 roly 73%, time <89% 34 min. Added oxygen 2 L/min via CPAP. Hypoxia resolved with CPAP and 2 L/min oxygen (nocturnal oximetry 06/05- on CPAP with 2 L/min oxygen, SpO2 roly 89%). Last seen by me 10/07/21. No problems with the CPAP, but still not sleeping solidly. Replacement CPAP was ordered at 9 cwp, and oxygen 2 L/min continued via CPAP with sleep. He had received a replacement DreamStation through the recall, in 2021. In the interim, he lost weight (110 lbs total), seems to be at a plateau now, stopped CPAP about 3 months ago. No longer snoring. He had not had any trouble tolerating the CPAP, just thought he would not need it anymore. Still using oxygen 2 L/min with sleep. Nighttime awakenings: yes, reduced with trazodone which he takes some nights if not feeling very tired. Snoring: no Witnessed apneas: no Choking/gasping awakenings: no + severe fatigue Drowsy driving: yes, with longer drives -- gets someone to drive him if going farther. Accidents or near-misses due to drowsiness while driving: no Morning headaches: no RLS symptoms: no [place] Sleepiness Scale: 9 RLS rating scale 1 Travel Screening Question 05/11/2024 11:33 AM EDT - Filed by Patient Do you have any of the following new or worsening symptoms? None of these Have you recently been in contact with someone who was sick? No / Unsure [place] Sleepiness Scale Question 05/11/2024 11:40 AM EDT - Filed by Patient What is the chance you will doze off in the following situation? Sitting and reading Slight chance of dozing Watching TV Moderate chance of dozing Sitting inactive in a public place, such as a theater or meeting Slight chance of dozing As a passenger in a car for an hour without a break Moderate chance of dozing Lying down to rest in the afternoon when circumstances permit Moderate chance of dozing When sitting and talking to someone No chance of dozing When sitting quietly after lunch without alcohol Slight chance of dozing In a car, while stopped for a few minutes in traffic No chance of dozing Score (range: 0 - 24) 9 Restless Leg Syndrome Rating Scale Question 05/11/2024 11:42 AM EDT - Filed by Patient Please complete the following questions. In the past week... Overall, how would you rate the RLS discomfort in your legs or arms? None Overall, how would you rate the need to move around because of your RLS symptoms? None How severe was your sleep disturbance due to your RLS symptoms? None How severe was your tiredness or sleepiness during the day due to your RLS symptoms? None How severe was your RLS as a whole? None Overall, how severe was the impact of your RLS symptoms on your ability to carry out your daily affairs, for example, carrying out a satisfactory family, home, social, school, or work? None How severe was your mood disturbance due to your RLS symptoms, for example, angry, depressed, sad, anxious, or irritable? None In the past week, Overall, how much relief of your RLS arm or leg discomfort did you get from moving around? Either complete or almost complete relief How often did you get RLS symptoms? Never When you had RLS symptoms, how severe were they on average? None Score (range: 1 - 40) 1 (Mild) Patient Active Problem List Diagnosis Degeneration of lumbosacral intervertebral disc ADVANCE DIRECTIVE INFORMATION Multiple myeloma without remission (HCC) Organ-limited amyloidosis (HCC) PAF (paroxysmal atrial fibrillation) ([facility]) Anxiety Type 2 diabetes mellitus with hemoglobin A1c goal of less than 7.0% (HCC) Hypogammaglobulinemia (HCC) Lambda light chain myeloma (HCC) AL amyloidosis (HCC) DEBBY (obstructive sleep apnea) Statin intolerance Peripheral neuropathic pain Current chronic use of systemic steroids Hyperlipidemia with target LDL less than 70 Coronary artery disease, non-occlusive Senile cardiac amyloidosis (HCC) Immunosuppressed status (HCC) Chronic kidney disease, stage 3b (HCC) 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 dexAMETHasone Sodium Phosphate 4 MG/ML Injection Solution (Decadron) Inject 8 mg intravenously as needed for Anaphylaxis (severe allergic reaction). 2 mL 11 diphenhydrAMINE HCl 50 MG/ML Injection Solution (Benadryl) 25 mg IV push, may repeat x 1 dose, then50 mg every 2 - 3 hours as needed for anaphylaxis 2 mL 11 diphenhydrAMINE HCl 50 MG/ML Injection Solution (Benadryl) Inject 25 mg intravenously as needed (Mild to moderate infusion reaction (infusion reaction protocol)). 1 mL 11 EPINEPHrine (Anaphylaxis) 1 MG/ML Injection Solution Inject 0.3 mL into a large muscle as needed for Anaphylaxis (severe allergic reaction). May repeat every 15 min as needed per infusion reaction protocol 2 mL 11 Finasteride 5 MG Oral Tablet (Proscar) TAKE 1 TABLET BY MOUTH IN THE MORNING 90 Tablet 3 Sodium Chloride 0.9 % Intravenous Solution TO BE ADMINISTERED IN THE EVENT OF ANAPHYLACTIC [id number] mL 11 Mirtazapine 15 MG Oral Tablet (Remeron) Take 1 Tablet by mouth at bedtime. 30 Tablet 5 Nystatin 120979 UNIT/ML Mouth/Throat Suspension Swish and swallow 5 mL in the morning and 5 mL at noon and 5 mL in the evening and 5 mL before bedtime. 60 mL 1 Privigen 40 GM/400ML Intravenous Solution (Immune Globulin Human-IVIG 10%) Administer 15 gm IV x 2 days every month. 300 mL 11 Hydrocortisone 5 MG Oral Tablet (Cortef) take five tablets by mouth in the morning (Patient taking differently: take three tablets by mouth in the morning) 450 Tablet 1 Apixaban 5 MG Oral Tablet (Eliquis) Take 1 Tablet by mouth in the morning and 1 Tablet before bedtime. 180 Tablet 1 Fluconazole 200 MG Oral Tablet (Diflucan) Take 1 Tablet by mouth in the morning. 90 Tablet 1 Fludrocortisone Acetate 0.1 MG Oral Tablet (Florinef) take 1/2 tablet by mouth daily 50 Tablet 0 oxyCODONE HCl 5 MG Oral Tablet (Oxy IR) Take 1 Tablet by mouth every 4 hours as needed for breakthrough pain. 30 Tablet 0 Vemlidy 25 MG Oral Tablet (Tenofovir Alafenamide Fumarate) Take 1 tablet by mouth in the morning. 90 Tablet 1 Folic Acid 400 MCG Oral Tablet TAKE ONE TABLET BY MOUTH IN THE MORNING 90 Tablet 3 Prochlorperazine Maleate 10 MG Oral Tablet (Compazine) TAKE ONE TABLET BY MOUTH EVERY SIX HOURS NEEDED FOR NAUSEA 40 Tablet 0 metFORMIN HCl ER 500 MG Oral Tablet Extended Release 24 Hour (Glucophage XR) take two tablets by mouth in the morning 180 Tablet 1 DULoxetine HCl 20 MG Oral Capsule Delayed Release Particles (Cymbalta) Take 2 Capsules by mouth in the morning. 180 Capsule 1 Levothyroxine Sodium 50 MCG Oral Tablet (Levoxyl) TAKE 1 TABLET BY MOUTH DAILY AT LEAST 30 MINUTES PRIOR TO FIRST MEAL OF THE DAY OR OTHER MEDICATIONS 90 Tablet 3 Albuterol Sulfate HFA 108 (90 Base) MCG/ACT Inhalation Aerosol Solution Inhale 2 Puffs by mouth every 6 hours as needed for Cough or Shortness of Breath. 54 g 1 RIISnet G7 Sensor Use as directed to check blood sugars daily. Change every 10 days 9 Each 3 Pantoprazole Sodium 20 MG Oral Tablet Delayed Release (Protonix) TAKE ONE TABLET BY MOUTH EVERY DAYIN THE MORNING 90 Tablet 2 Pen Murchison 32G X 4 MM Use as directed. Inject Lantus once daily. 50 Each 3 Repatha SureClick 140 MG/ML Subcutaneous Solution Auto-injector (evolocumab) INJECT 140MG (1 INJECTION) UNDER THE SKIN EVERY 14 DAYS. REMOVE FROM REFRIGERATOR 30 MINUTES PRIOR TO INJECTION 6 mL 3 Polyethylene Glycol 3350 17 GM Oral Packet Take 1 Packet by mouth daily as needed. Acyclovir 400 MG Oral Tablet (Zovirax) Take one tablet once daily 180 Tablet 3 Lancets Test once daily DxE11.9. 100 Each 5 OneTouch Ultra Blue In Vitro Strip (Glucose Blood) Use as directed daily. Test once daily DxE11.9 100 Strip 5 oxygen IN GAS Use 2 L/min(Oxygen) as directed at bedtime. 1 Each 0 CPAP every night at bedtime. (Patient not taking: Reported on 04/06/2024) No current facility-administered medications for this visit. PHYSICAL EXAM: Filed Vitals: 05/11/24 1136 BP: 110/60 Pulse: 97 Resp: 16 Temp: 36.1 C (96.9 F) TempSrc: Tympanic SpO2: 95% Weight: 63.5 kg (140 lb) Height: 1.753 m (5' 9") Body mass index is 20.67 kg/m. General: alert, no acute distress Head: NC/AT Lungs: normal respiratory effort Neuro: speech clear and appropriate ASSESSMENT/PLAN: Obstructive sleep apnea - previously severe, s/p significant weight loss with resolution of snoring - split-night PSG to re-evaluate for sleep apnea - start the PSG on room air, but can add O2 if indicated. - will determine based on the study whether he needs to remain on supplemental oxygen overnight, and/or if restarting PAP would be appropriate. - Continue to avoid driving when feeling sleepy/drowsy. Follow-up with Sleep Medicine TBD based on PSG results (MyG with results). Tona Mondragon DO documented in this encounter Nursing Notes * Danielle Tripathi LPN - 05/11/2024 11:46 AM EDT Chief Complaint Patient presents with Follow Up Sleep Apnea Discuss Retesting after Weight Loss Restless Leg Syndrome Cpap-has not used in approx 2 mo DME: [facility] Travel Screening Question 05/11/2024 11:33 AM EDT - Filed by Patient Do you have any of the following new or worsening symptoms? None of these Have you recently been in contact with someone who was sick? No / Unsure [place] Sleepiness Scale Question 05/11/2024 11:40 AM EDT - Filed by Patient What is the chance you will doze off in the following situation? Sitting and reading Slight chance of dozing Watching TV Moderate chance of dozing Sitting inactive in a public place, such as a theater or meeting Slight chance of dozing As a passenger in a car for an hour without a break Moderate chance of dozing Lying down to rest in the afternoon when circumstances permit Moderate chance of dozing When sitting and talking to someone No chance of dozing When sitting quietly after lunch without alcohol Slight chance of dozing In a car, while stopped for a few minutes in traffic No chance of dozing Score (range: 0 - 24) 9 Restless Leg Syndrome Rating Scale Question 05/11/2024 11:42 AM EDT - Filed by Patient Please complete the following questions. In the past week... Overall, how would you rate the RLS discomfort in your legs or arms? None Overall, how would you rate the need to move around because of your RLS symptoms? None How severe was your sleep disturbance due to your RLS symptoms? None How severe was your tiredness or sleepiness during the day due to your RLS symptoms? None How severe was your RLS as a whole? None Overall, how severe was the impact of your RLS symptoms on your ability to carry out your daily affairs, for example, carrying out a satisfactory family, home, social, school, or work? None How severe was your mood disturbance due to your RLS symptoms, for example, angry, depressed, sad, anxious, or irritable? None In the past week, Overall, how much relief of your RLS arm or leg discomfort did you get from moving around? Either complete or almost complete relief How often did you get RLS symptoms? Never When you had RLS symptoms, how severe were they on average? None Score (range: 1 - 40) 1 (Mild) documented in this encounter Plan of Treatment Upcoming Encounters Date Type Department Care Team (Late st Contact Info) Description 05/11/2024 2:00 PM EDT Home Visit [facility] [place], [place] [address] [facility][1][place] [address] Beth Berry RN 44 [facility] [place] [phone] 05/15/2024 2:00 PM EDT Telemedicine Hematology [facility] Tyree UGARTE [facility] [place] [address] Thierno Patel PA-C [address] [facility] [place] [address] 05/21/2024 2:30 PM EDT Scheduled Telephone [facility], [facility] [address] [facility] [place] [address] Yecenia Back, RDN [address] [facility] [place] [address] 06/05/2024 8:40 AM EDT Office Visit Family [address] [place] [phone] Jaime Garcia MD [address] [place] [address] [place] [address] 06/07/2024 1:00 PM EDT Home Visit [facility] [address] [place] [address] Beth Berry RN [address] [place] [address] 06/08/2024 1:45 PM EDT Home Visit [facility] [address] [place] [address] Beth Berry RN [address] [place] [address] 06/08/2024 2:30 PM EDT Home Visit [facility], [facility] [address] [facility] [place] [address] Sulma Seth, RN [address] [facility] [place] [address] 06/15/2024 10:00 AM EDT Telemedicine Hematology [facility] Tyree UGARTE [address] [facility] [place] [address] Rosalio Amaral MD [address] [facility] [place] [address] 07/10/2024 9:30 AM EDT Office Visit Cardiology, [facility] [address] [facility] [place] [address] Beth Salter CRNP [address] [facility] [place] [phone] 10/30/2024 1:45 PM EST Office Visit Urology, [facility] [address] [facility] [place] [address] Devyn Paniagua MD [address] [facility] [place] [address] 01/01/2025 10:20 AM EDT Office Visit Otolaryngology [facility] [address] [facility] [place] [address] Haley Aguero PA-C [address] [facility] [place] [address] Scheduled Orders Name Type Priority Associated Diagnoses Orde r Schedule SLEEP STUDY, W/O CPAP Procedures Routine Obstructive sleep apnea Nocturnal hypoxemia PAF (paroxysmal atrial fibrillation) (HCC) Chronic heart failure with preserved ejection fraction (HCC) Ordered: 05/11/2024 SLEEP STUDY, W/ CPAP (TREATMENT SETTINGS) Procedures Routine Obstructive sleep apnea Nocturnal hypoxemia PAF (paroxysmal atrial fibrillation) (HCC) Chronic heart failure with preserved ejection fraction (HCC) Ordered: 05/11/2024 Health Maintenance Due Date Last Done Comments [...] Additional history exists CKD PHOS USE SMARTSET 59636 03/09/202502/11, 03/08/2024, 03/07/2024, Additional history exists CKD HGB USE SMARTSET 15028 05/07/202505/07, 04/30/2024, 04/23/2024, Additional history exists DTap/Tdap [...] this encounter Medical Devices Implanted Type Area Piece Jobber Device Identifier Shelf Expiration Date Model / Serial / Lot Port Power Mri W/8fr Cath - [id number] Implanted:Qty: 1 on 09/26/2020 by Simone Michelle MD at [facility] Right: Chest CR BARD : PERIPHERAL VASCULAR 10/12/2021 [id number] / / [id number] Description:right IJ Lens Intraoc 19.0 - [id number] - [id number] Implanted:Qty: 1 on 02/03/2021 by Chris Sexton MD at [facility] Right: Eye [employer] 09/11/2025 [id number] / [id number] / Lens Intraoc 19.0 - [id number] - [id number] Implanted:Qty: 1 on 02/24/2021 by Chris Sexton MD at [facility] Left: Eye [employer] 10/12/2025 [id number] / [id number] / [id number] System Urolift - [id number] Implanted:Qty: 2 on 03/17/2023 by Devyn Paniagua MD at OR [facility] N/A: Urethra [employer] 11/18/2023 [id number] / / [id number] System Urolift - [id number] Implanted:Qty: 3 on 03/17/2023 by Devyn Paniagua MD at OR [facility] N/A: Urethra [employer] 11/03/2023 [id number] / / [id number] documented as of this encounter Visit Diagnoses Diagnosis Obstructive sleep apnea- Primary Obstructive sleep apnea (adult) (pediatric) Nocturnal hypoxemia Hypoxemia PAF (paroxysmal atrial fibrillation) (HCC) Atrial fibrillation Chronic heart failure with preserved ejection fraction (HCC) documented in this encounter Additional Health [...] and were consensually agreed upon. 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
--- OUTSIDE RECORDS SUMMARY | 2024-05-13 05:57 | External Medical Summary | Summary of Care ---
Author Name Unknown Organization [facility] Address [address] [place] [address] Phone [phone] Care Team Providers Care Salon Designer Name Role Phone Jaime Garcia MD Primary Care Provide r Reason for Visit * Reason Comments Outpatient Testing Encounter Details Date Type Department Care Team (Late st Contact Info) Description 05/08/2024 10:10 AM EDT Laboratory Laboratory [address] [place] [phone] [place] [address] Arrived Allergies Active Allergy Reactions Criticality Noted Date Comments Atorvastatin Muscle pain High 03/30/2019 Ezetimibe Muscle pain High 01/25/2020 documented as of this encounter (statuses as of 05/08/2024) Medications Medication Sig Dispensed Refills Start Date [...] once daily 180 Tablet 3 12/14/2021 Active Acetaminophen 325 MG Oral Tablet (Tylenol) Take two 325 mg tablets by mouth one hour prior to Hizentra. 30 Tablet 3 09/16/2022 Active Polyethylene Glycol 3350 17 GM Oral Packet Take 1 Packet by mouth daily as needed. Active Finasteride 5 MG Oral Tablet (Proscar) TAKE 1 TABLET BY MOUTH IN THE MORNING 90 Tablet 3 04/12/2023 4 Active Repatha SureClick 140 MG/ML Subcutaneous Solution Auto-injector (evolocumab)Indica tions:Dyslipidemia , goal LDL below 70 INJECT 140MG (1 INJECTION) UNDER THE SKIN EVERY 14 DAYS. REMOVE FROM REFRIGERATOR 30 MINUTES PRIOR TO INJECTION 6 mL 3 06/15/2023 4 Active Pen [place] 32G X 4 MM Use as directed. [...] A1c goal of less than 7.0% (HCC) take two tablets by mouth in the [...] in the morning, Reported on 05/01/2024 Nystatin 951665 UNIT/ML Mouth/Throat SuspensionIndicati ons:Multiple myeloma in relapse (HCC) Swish and swallow 5 mL in the morning and 5 mL at noon and 5 mL in the evening and 5 mL before bedtime. 60 mL 04/16/2024 Active Privigen 40 GM/400ML Intravenous Solution (Immune Globulin Human-IVIG 10%)Indications:Mu ltiple myeloma in relapse (HCC) Administer 15 gm IV x 2 days every month. 300 mL 11 04/16/2024 Active Acetaminophen 325 MG Oral Tablet (Tylenol)Indicatio ns:Multiple myeloma in relapse (HCC) Take 2 Tablets by mouth as needed (for mild to moderate reaction (infusion reaction protocol)). 04/16/2024 Active Sodium Chloride 0.9 % Intravenous SolutionIndication s:Multiple myeloma in relapse (HCC) TO BE ADMINISTERED IN THE EVENT OF ANAPHYLACTIC REACTION 1000 mL 11 04/16/2024 Active Mirtazapine 15 MG Oral Tablet (Remeron)Indicatio ns:Decreased appetite Take 1 Tablet by mouth at bedtime. 30 Tablet 5 05/08/2024 Active documented as of this encounter (statuses as of 05/08/2024) Active Problems Problem Noted Date Diagnosed Date [...] as of this encounter (statuses as of 05/08/2024) Resolved Problems Problem Noted Date Diagnosed Date [...] as of this encounter (statuses as of 05/08/2024) Immunizations Name Administration Dates Next Due COVID-19, [...] Team (Late st Contact Info) Description 05/10/2024 1:00 PM EDT Home Visit [facility] [address] [place] [address] Jessica Browning RN [address] [place] [address] 05/11/2024 11:40 AM EDT Office Visit [facility] 132 [facility] [place] [phone] Tona Mondragon DO 132 [facility] [place] [address] 05/11/2024 3:45 PM EDT Home Visit [facility] 44 [place] [address] Beth Berry, BOBBY 44 [place] [address] 05/15/2024 2:00 PM EDT Telemedicine [facility] UGARTE [address] [facility] [place] [address] Thierno Patel PA-C [address] [facility] [place] [address] 05/21/2024 2:30 PM EDT Scheduled Telephone [facility], [facility] [address] [facility] [place] [address] Yecenia Back, ALEXANDREN [address] [facility] [place] [address] 06/05/2024 8:40 AM EDT Office Visit Family Medicine [address] [place] [phone] Jaime Garcia MD [address] [place] [address] [place] [address] 06/08/2024 2:30 PM EDT [facility] Visit [facility], [facility] 132 [facility] [place] [address] Sulma Seth, RN 132 [facility] [place] [address] 06/15/2024 10:00 AM EDT [facility] [address] [facility] [place] [address] Rosalio Amaral MD [address] [facility] [place] [address] 07/10/2024 9:30 AM EDT Office Visit Cardiology, [facility] 132 [facility] [place] [address] Beth Salter CRNP [address] [place] [address] [place] [address] 10/30/2024 1:45 PM EST Office Visit Urology, [facility] 132 [facility] [place] [address] Devyn Paniagua MD [address] [place] [address] 01/01/2025 10:20 AM EDT Office Visit Otolaryngology [facility] [address] [place] [address] Haley Aguero PA-C [address] [place] [address] Health Maintenance Due Date Last Done Comments Cologuard 2015 Fecal Occult Blood Test 2015 Sigmoidoscopy 2015 Depression Screening 01/05/2022 01/05/2021 Diabetic Foot Exam 12/14/2022 12/14/2021, 0 10/15/2020, 06/25/2019 COVID-19 Vaccine ( season) 2023 10/06/2021, 06/24/2021, 06/23/2021 HbA1c 01/05/2024 07/06/2023, 08/0 11/2022, 03/29/2023, Additional history exists Influenza Vaccine (FLU shot) (#1) 2024 08/22/2023, 06/10/2022, 07/23/2021, Additional history exists Pneumococcal Vaccine: Pediatrics (0 to 5 Years) and At-Risk Patients (6 to 64 Years) (3 of 3 - PPSV23 or PCV20) 05/22/2024 05/13/2020, 05/22/2019 TSH 07/25/2024 07/25/2023, 03/12, 01/31/2023, Additional history exists GFR 10/31/2024 04/30/2024, 04/12, 04/18/2024, Additional history exists Diabetic Eye Exam 01/18/2025 01/19/2024, , 07/11/2023, Additional history exists Albumin/Creatinine Ratio 01/26/20252 024, 12/30/2023, 09/08/2023, Additional history exists CKD PHOS USE SMARTSET 04879 03/09/202502/11, 03/08/2024, 03/07/2024, Additional history exists CKD HGB USE SMARTSET 89527 04/30/202504/30, 04/23/2024, 04/16/2024, Additional history exists DTap/Tdap Vaccines (2 - [...] this encounter Medical Devices Implanted Type Area Gre Tutor Device Identifier Shelf Expiration Date Model / Serial / Lot Port Power Mri W/8fr Cath - [id number] Implanted:Qty: 1 on 09/26/2020 by Simone Michelle MD at OR [facility] Right: Chest CR BARD : PERIPHERAL VASCULAR 10/12/2021 [id number] / / [id number] Description:right IJ Lens Intraoc 19.0 - [id number] - [id number] Implanted:Qty: 1 on 02/03/2021 by Chris Sexton MD at OR [facility] Right: Eye [employer] 09/11/2025 [id number] / [id number] / Lens Intraoc 19.0 - [id number] - [id number] Implanted:Qty: 1 on 02/24/2021 by Chris Sexton MD at OR [facility] Left: Eye [employer]OM[employer] 10/12/2025 [id number] / [id number] / [id number] System Urolift - [id number] Implanted:Qty: 2 on 03/17/2023 by Devyn Paniagua MD at OR [facility] N/A: Urethra [employer] 11/18/2023 [id number] / / [id number] System Urolift - [id number] Implanted:Qty: 3 on 03/17/2023 by Devyn Paniagua MD at OR [facility] N/A: Urethra [employer] 11/03/2023 [id number] / / [id number] documented as of this encounter Additional Health [...] and were consensually agreed upon. Care Teams Salon Designer Relationship Specialty Start Date End Date Jaime Garcia MD [address] [place] [address] [place] [phone] PCP - General Family Medicine 10/15/20 documented as of this encounter
--- OUTSIDE RECORDS SUMMARY | 2024-05-13 05:57 | External Medical Summary | Summary of Care ---
Author Name Unknown Organization [facility] Address [address] [place] [address] Phone [phone] Care Team Providers Care Regional Account Manager Name Role Phone Jaime Garcia MD Primary Care Provide r Encounter Details Date Type Department Care Team (Late st Contact Info) Description 05/01/2024 Orders Only Family Medicine [address] [place] [phone] Jaime Garcia MD [address] [place] [address] [place] [address] Allergies Active Allergy Reactions Criticality Noted Date Comments Atorvastatin Muscle pain High 03/30/2019 Ezetimibe Muscle pain High 01/25/2020 documented as of this encounter (statuses as of 05/01/2024) Medications Medication Sig Dispensed Refills Start Date [...] Packet by mouth daily as needed. Active oxyCODONE-Acetamin ophen 5-325 MG Oral Tablet (Percocet) Take 1 Tablet by mouth every 6 hours as needed for Pain, Severe. 10 Tablet 03/17/2023 Active Additional Information Patient not taking.Reported on 04/06/2024 Finasteride 5 MG Oral Tablet (Proscar) TAKE 1 TABLET BY MOUTH IN THE MORNING 90 Tablet 3 04/12/2023 4 Active Cholecalciferol 50 MCG (2000 UT) Oral TabletIndications: Lambda light chain myeloma (HCC),Multiple myeloma without remission (HCC) Take 50 mcg by mouth in the morning. 30 Tablet 5 06/14/2023 Active Additional Information Patient not taking.Reported on 04/06/2024 Repatha SureClick 140 MG/ML Subcutaneous Solution Auto-injector (evolocumab)Indica tions:Dyslipidemia , goal LDL below 70 INJECT 140MG (1 INJECTION) UNDER THE SKIN EVERY 14 DAYS. REMOVE FROM REFRIGERATOR 30 MINUTES PRIOR TO INJECTION 6 mL 3 06/15/2023 4 Active Pen [place] 32G X 4 MM Use as directed. Inject Lantus once daily. 50 Each 3 07/19/2023 Active Icosapent Ethyl 1 GM Oral Capsule (Vascepa)Indicatio ns:Hyperlipidemia with target LDL less than 70 Take 2 Capsules by mouth 2 times a day with morning and evening meals. Swallow capsules whole, do not open or break. 360 Capsule 3 07/20/2023 Active Additional Information Patient not taking.Reported on 04/06/2024 Pantoprazole Sodium 20 MG Oral Tablet Delayed [...] 10 days 9 Each 3 09/01/2023 Active Ondansetron HCl 8 MG Oral Tablet (Zofran)Indication s:Nausea Take 1 Tablet by mouth every 8 hours as needed for Nausea. 30 Tablet 3 09/14/2023 Active Additional Information Patient not taking.Reported on 04/06/2024 NSS 0.9 % SOLN 100 mL with cefTRIAXone 2 GM SOLR 2 g Administer 2 g intravenously daily. Active Albuterol Sulfate HFA 108 (90 Base) [...] OR OTHER MEDICATIONS 90 Tablet 3 12/23/2023 Active metFORMIN HCl ER 500 MG Oral Tablet Extended Release 24 Hour (Glucophage XR)Indications:Typ e 2 diabetes mellitus with hemoglobin A1c goal of less than 7.0% ([facility]) take two tablets by mouth in the morning 180 Tablet 1 01/04/2024 Active DULoxetine HCl 20 MG Oral Capsule Delayed Release Particles (Cymbalta) Take 2 Capsules by mouth in the morning. 180 Capsule 1 01/02/2024 Active Magnesium Chloride 64 MG Oral Tablet Delayed Release (Mag64)Indications :Multiple myeloma in relapse ([facility]) Take 1 Tablet by mouth in the morning and 1 Tablet before bedtime. 180 Tablet 3 01/11/2024 Active Additional Information Patient not taking.Reported on 04/06/2024 Prochlorperazine Maleate 10 MG Oral Tablet (Compazine)Indicat [...] by mouth in the morning. 90 Tablet 03/26/2024 Active Fludrocortisone Acetate 0.1 MG Oral [...] by mouth in the morning 450 Tablet 03/28/2024 Active Nystatin 856452 UNIT/ML Mouth/Throat SuspensionIndicati ons:Multiple myeloma in relapse (HCC) Swish and swallow 5 mL in the morning and 5 mL at noon and 5 mL in the evening and 5 mL before bedtime. 60 mL 04/16/2024 Active Privigen 40 GM/400ML Intravenous Solution (Immune Globulin Human-IVIG 10%)Indications:Mu ltiple myeloma in relapse (HCC) Administer 15 gm IV x 2 days every month. 300 mL 04/16/2024 Active Acetaminophen 325 MG Oral Tablet (Tylenol)Indicatio ns:Multiple myeloma in relapse (HCC) Take 2 Tablets by mouth as needed (for mild to moderate reaction (infusion reaction protocol)). 04/16/2024 Active diphenhydrAMINE HCl 50 MG/ML Injection Solution (Benadryl)Indicati ons:Multiple myeloma in relapse ([facility]) 25 mg IV push, may repeat x 1 dose, then 50 mg every 2 - 3 hours as needed for anaphylaxis 2 mL 04/16/2024 Active Sodium Chloride 0.9 % Intravenous SolutionIndication s:Multiple myeloma in relapse (HCC) TO BE ADMINISTERED IN THE EVENT OF ANAPHYLACTIC REACTION 1000 mL 04/16/2024 Active dexAMETHasone Sodium Phosphate 4 MG/ML Injection Solution (Decadron)Indicati ons:Multiple myeloma in relapse (HCC) Inject 8 mg intravenously as needed for Anaphylaxis (severe allergic reaction). 2 mL 04/16/2024 Active diphenhydrAMINE HCl 50 MG/ML Injection Solution (Benadryl)Indicati ons:Multiple myeloma in relapse (HCC) Inject 25 mg intravenously as needed (Mild to moderate infusion reaction (infusion reaction protocol)). 1 mL 11 04/16/2024 Active EPINEPHrine (Anaphylaxis) 1 MG/ML Injection SolutionIndication s:Multiple myeloma in relapse (HCC) Inject 0.3 mL into a large muscle as needed for Anaphylaxis (severe allergic reaction). May repeat every 15 min as needed per infusion reaction protocol 2 mL 11 04/16/2024 Active documented as of this encounter (statuses as of 05/01/2024) Active Problems Problem Noted Date Diagnosed Date [...] 06/14/2014 Overview: Dr Rodriges/ [facility] ADVANCE DIRECTIVE INFORMATION 10/13/2006 Overview: No, Advance Directive brochure offered , patient declined. Degeneration of lumbosacral intervertebral disc 02/19/2005 documented as of this encounter (statuses as of 05/01/2024) Resolved Problems Problem Noted Date Diagnosed Date [...] as of this encounter (statuses as of 05/01/2024) Immunizations Name Administration Dates Next Due COVID-19, [...] Care Team (Late st Contact Info) Description 05/01/2024 4:00 PM EDT Home Visit [facility] [address] [place] [address] Sulma Seth, BOBBY 132 [facility] [place] [address] 05/08/2024 9:00 AM EDT Office Visit Family [address] [phone] Jaime Garcia MD [address] [place] [address] [place] [address] 05/10/2024 1:00 PM EDT Home Visit [facility] [place] [address] [place] [address] Jessica Browning, BOBBY [address] [place] [address] 05/11/2024 11:40 AM EDT Office Visit Sleep Disorders Ctr [facility] [address] [place] [phone] Tona Mondragon, 132 [facility] [place] [address] 05/11/2024 3:45 PM EDT Home Visit [facility] [address] [place] [address] Beth Berry, BOBBY [address] [place] [address] 05/15/2024 2:00 PM EDT Telemedicine H[facility]ology [facility] [place] [address] [place] [address] Thierno Patel PA-C [address] [place] [address] 05/21/2024 2:30 PM EDT Scheduled Telephone [facility], [facility] [address] [place] [address] Yecenia Back RDN [address] [place] [address] 06/20/2024 3:00 PM EDT Telemedicine [facility] [place] [address] [place] [address] Rosalio Amaral MD [address] [place] [address] 07/10/2024 9:30 AM EDT Office Visit Cardiology, [facility] 132 [facility] [place] [address] Beth Salter CRNP [address] [place] [address] [place] [address] 10/30/2024 1:45 PM EST Office Visit Urology, [facility] 132 [facility] [place] [address] Devyn Paniagua MD [address] [place] [address] 01/01/2025 10:20 AM EDT Office Visit Otolaryngology [facility] [address] [place] [address] Haley Aguero PA-C [address] [place] [address] Health Maintenance Due Date Last Done Comments [...] Additional history exists CKD PHOS USE SMARTSET 57527 03/09/202502/11, 03/08/2024, 03/07/2024, Additional history exists CKD HGB USE SMARTSET 99810 04/23/202504/30, 04/23/2024, 04/16/2024, Additional history exists DTaP,Tdap,and Td Vaccines (2 [...] this encounter Medical Devices Implanted Type Area Plastics Fabricator Device Identifier Shelf Expiration Date Model / Serial / Lot Port Power Mri W/8fr Cath - [id number] Implanted:Qty: 1 on 09/26/2020 by Simone Michelle MD at OR [facility] Right: Chest CR BARD : PERIPHERAL VASCULAR 10/12/2021 [id number] / / [id number] Description:right IJ Lens Intraoc 19.0 - [id number] - [id number] Implanted:Qty: 1 on 02/03/2021 by Chris Sexton MD at OR [facility] Right: Eye [employer] 09/11/2025 [id number] / [id number] / Lens Intraoc 19.0 - [id number] - [id number] Implanted:Qty: 1 on 02/24/2021 by Chris Sexton MD at [facility] Left: Eye [employer]OM[employer] 10/12/2025 [id number] / [id number] / [id number] System Urolift - [id number] Implanted:Qty: 2 on 03/17/2023 by Devyn Paniagua MD at OR [facility] N/A: Urethra [employer] 11/18/2023 [id number] / / [id number] System Urolift - [id number] Implanted:Qty: 3 on 03/17/2023 by Devyn Paniagua MD at OR [facility] N/A: Urethra [employer] 11/03/2023 [id number] / / [id number] documented as of this encounter Procedures Procedure Name Priority Date/Time Associated Diagnosis Comments CHEMISTRY-OUTSIDE Routine 04/30/2024 documented in this encounter Results * (ABNORMAL) CHEMISTRY-OUTSIDE (04/30/2024) Not all results display below - see scan for full detail OUTSIDE LAB (SEE SCANNED REPORT) Comment:SCAN INCLUDES: FIBRI NOGEN, PT/INR, PTT, CBCD CREATININE-OUTSID E LAB OUTSIDE LAB (SEE SCANNED REPORT) EGFR-OUTSIDE LAB OUT SIDE LAB (SEE SCANNED REPORT) POTASSIUM-OUTSIDE LAB OUTSIDE LAB (SEE SCANNED REPORT) GLUCOSE-OUTSIDE LAB OUTSIDE LAB (SEE SCANNED REPORT) HOURS FASTING [...] LAB OUTSIDE LAB (SEE SCANNED REPORT) HEMOGLOBIN, [id number] LAB OUTSIDE LAB (SEE SCANNED REPORT) PHOSPHORUS-OUTSID E LAB OUTSIDE LAB (SEE SCANNED REPORT) PTH-OUTSIDE LAB OUTS [facility] LAB (SEE SCANNED REPORT) MICROALBUMIN RATIO-OUTSIDE LAB OUTSIDE LA B (SEE SCANNED REPORT) PROTEIN, UA-OUTSIDE LAB OUTSIDE LAB (SEE SCANNED REPORT) HGB 12.7(A) 13.5 - 18.0 GM/DL OUTSIDE LAB (SEE SCANNED REPORT) 04/30/2024 Jaime Garcia MD LABORATORY OUTSIDE LAB (SEE SCANNED REPORT) documented in this encounter Additional Health Concerns [...] and were consensually agreed upon. Care Teams Regional Account Manager Relationship Specialty Start Date End Date Jaime Garcia MD [address] [place] [address] [place] [phone] PCP - General Family Medicine 10/15/20 documented as of this encounter
--- OUTSIDE RECORDS SUMMARY | 2024-05-13 05:57 | External Medical Summary | Summary of Care ---
Author Name Unknown Organization [facility] Address [address] [place] [address] Phone [phone] Care Team Providers Care Confidential Secretary Name Role Phone Jaime Garcia MD Primary Care Provide r Reason for Visit * Reason Onset Date Comments Medication Refill 05/09/2024 Encounter Details Date Type Department Care Team (Late st Contact Info) Description 05/09/2024 Refill Hematology [facility]cology [facility] [place] [address] [place] [address] [facility] [address] [place] [address] Multiple myeloma in relapse (HCC)* Allergies Active Allergy Reactions Criticality Noted Date Comments Atorvastatin Muscle pain High 03/30/2019 Ezetimibe Muscle pain High 01/25/2020 documented as of this encounter (statuses as of 05/09/2024) Medications Medication Sig Dispensed Refills Start Date End Date Status CPAP every night at bedtime. Active oxygen IN GAS Use 2 L/min(Oxygen) as directed at bedtime. 1 Each 1 Active OneTouch Ultra Blue In Vitro Strip (Glucose Blood)Indications :Type 2 diabetes mellitus with hemoglobin A1c goal of less than 7.0% (HCC) Use as directed daily. Test once daily DxE11.9 100 Strip 5 1 Active LancetsIndication s:Type 2 diabetes mellitus with hemoglobin A1c goal of less than 7.0% (HCC) Test once daily DxE11.9. 100 Each 5 1 Active Acyclovir 400 MG Oral Tablet (Zovirax)Indicati ons:Lambda light chain myeloma (HCC) Take one tablet once daily 180 Tablet 3 2 Active Polyethylene Glycol 3350 17 GM Oral Packet Take 1 Packet by mouth daily as needed. Active Finasteride 5 MG Oral Tablet (Proscar) TAKE 1 TABLET BY MOUTH IN THE MORNING 90 Tablet 3 3 05/20/20 24 Active Repatha SureClick 140 MG/ML Subcutaneous Solution Auto-injector (evolocumab)Indic ations:Dyslipidem ia, goal LDL below 70 INJECT 140MG (1 INJECTION) UNDER THE SKIN EVERY 14 DAYS. REMOVE FROM REFRIGERATOR 30 MINUTES PRIOR TO INJECTION 6 mL 3 3 06/14/20 24 Active Pen [place] 32G X 4 MM Use as directed. Inject Lantus once daily. 50 Each 3 3 Active Pantoprazole Sodium 20 MG Oral Tablet Delayed Release (Protonix)Indicat ions:Gastroesopha geal reflux disease without esophagitis TAKE ONE TABLET BY MOUTH EVERY DAY IN THE MORNING 90 Tablet 2 3 08/30/20 24 Active Dexcom G7 SensorIndications :Type 2 diabetes mellitus with stage 3b chronic kidney disease, without long-term current use of insulin (HCC) Use as directed to check blood sugars daily. Change every 10 days 9 Each 3 3 Active Albuterol Sulfate HFA 108 (90 Base) MCG/ACT Inhalation Aerosol SolutionIndicatio ns:Acute bronchitis, antibiotics not indicated Inhale 2 Puffs by mouth every 6 hours as needed for Cough or Shortness of Breath. 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 180 Capsule 1 4 Active Prochlorperazine Maleate 10 MG Oral Tablet (Compazine)Indica tions:Nausea and vomiting, unspecified vomiting type TAKE ONE TABLET BY MOUTH EVERY SIX HOURS NEEDED FOR NAUSEA 40 Tablet 4 Active Folic Acid 400 MCG Oral TabletIndications :Low folate TAKE ONE TABLET BY MOUTH IN THE MORNING 90 Tablet 3 4 Active Vemlidy 25 MG Oral Tablet (Tenofovir Alafenamide Fumarate) Take 1 tablet by mouth in the morning. 90 Tablet 1 4 Active Apixaban 5 MG Oral Tablet (Eliquis) Take 1 Tablet by mouth in the morning and 1 Tablet before bedtime. 180 Tablet 1 4 Active Fluconazole 200 MG Oral Tablet (Diflucan) Take 1 Tablet by mouth in the morning. 90 Tablet 1 4 Active Fludrocortisone Acetate 0.1 MG Oral Tablet (Florinef) take 1/2 tablet by mouth daily 50 Tablet 4 Active oxyCODONE HCl 5 MG Oral Tablet (Oxy IR)Indications:Mu ltiple myeloma in relapse (HCC) Take 1 Tablet by mouth every 4 hours as needed for breakthrough pain. 30 Tablet 4 Active Hydrocortisone 5 MG Oral Tablet (Cortef) take five tablets by mouth in the morning 450 Tablet 1 4 Active Additional Information Patient taking differently: take three tablets by mouth in the morning, Reported on 05/01/2024 Nystatin 063904 UNIT/ML Mouth/Throat SuspensionIndicat ions:Multiple myeloma in relapse (HCC) Swish and swallow 5 mL in the morning and 5 mL at noon and 5 mL in the evening and 5 mL before bedtime. 60 mL 4 Active Privigen 40 GM/400ML Intravenous Solution (Immune Globulin Human-IVIG 10%)Indications:M ultiple myeloma in relapse (HCC) Administer 15 gm IV x 2 days every month. 300 mL 11 4 Active Mirtazapine 15 MG Oral Tablet (Remeron)Indicati ons:Decreased appetite Take 1 Tablet by mouth at bedtime. 30 Tablet 5 4 Active Acetaminophen 325 MG Oral Tablet (Tylenol)Indicati ons:Multiple myeloma in relapse (HCC) Take 2 Tablets by mouth as needed (for mild to moderate reaction (infusion reaction protocol)). 4 Active diphenhydrAMINE HCl 50 MG/ML Injection Solution (Benadryl)Indicat ions:Multiple myeloma in relapse (HCC) 25 mg IV push, may repeat x 1 dose, then 50 mg every 2 - 3 hours as needed for anaphylaxis 2 mL 4 Active Sodium Chloride 0.9 % Intravenous SolutionIndicatio ns:Multiple myeloma in relapse (HCC) TO BE ADMINISTERED IN THE EVENT OF ANAPHYLACTIC REACTION 1000 mL 4 Active dexAMETHasone Sodium Phosphate 4 MG/ML Injection Solution (Decadron)Indicat ions:Multiple myeloma in relapse (HCC) Inject 8 mg intravenously as needed for Anaphylaxis (severe allergic reaction). 2 mL 4 Active diphenhydrAMINE HCl 50 MG/ML Injection Solution (Benadryl)Indicat ions:Multiple myeloma in relapse (HCC) Inject 25 mg intravenously as needed (Mild to moderate infusion reaction (infusion reaction protocol)). 1 mL 4 Active EPINEPHrine (Anaphylaxis) 1 MG/ML Injection SolutionIndicatio ns:Multiple myeloma in relapse (HCC) Inject 0.3 mL into a large muscle as needed for Anaphylaxis (severe allergic reaction). May repeat every 15 min as needed per infusion reaction protocol 2 mL 4 Active Acetaminophen 325 MG Oral Tablet (Tylenol) Take two 325 mg tablets by mouth one hour prior to Hizentra. 30 Tablet 3 3 05/09/20 24 Discontinued Acetaminophen 325 MG Oral Tablet (Tylenol)Indicati ons:Multiple myeloma in relapse (HCC) Take 2 Tablets by mouth as needed (for mild to moderate reaction (infusion reaction protocol)). 4 05/09/20 24 Discontinued Sodium Chloride 0.9 % Intravenous SolutionIndicatio ns:Multiple myeloma in relapse (HCC) TO BE ADMINISTERED IN THE EVENT OF ANAPHYLACTIC REACTION 1000 mL 11 4 05/09/20 24 Discontinued documented as of this encounter (statuses as of 05/09/2024) Active Problems Problem Noted Date Diagnosed Date [...] as of this encounter (statuses as of 05/09/2024) Resolved Problems Problem Noted Date Diagnosed Date [...] as of this encounter (statuses as of 05/09/2024) Immunizations Name Administration Dates Next Due COVID-19, [...] encounter Miscellaneous Notes * Telephone Encounter - Kendy Browning OSA - 05/09/2024 8:56 AM EDT Alfonzo zhu calling in from home infusions stating the pt pcp discontinued pt's anaphylaxis medication and they are needing the prescriptions resign as soon as possible as he has treatment tomorrow sothey medication are to be delivered today. If any questions please contact audra at Thank you * Telephone Encounter - Caity Somers RP - 05/09/2024 8:31 AM EDT PCP discontinued the anaphylaxis medications that went with the Privigen order. We will need the orders re-signed as soon as possible. He is due for delivery today for infusion on 05/10 and 05/11. Thank you, Caity Somers [facility] documented in this encounter Plan of Treatment Upcoming Encounters Date Type Department Care Team (Late st Contact Info) Description 05/10/2024 1:00 PM EDT Home Visit [facility] [address] [place] [address] Jessica Browning RN [address] [place] [address] 05/11/2024 11:40 AM EDT [facility] [address] [facility] [place] [phone] Tona Mondragon, 132 [facility] [place] [address] 05/11/2024 2:00 PM EDT Home Visit [facility] [address] [place] [address] Beth Berry, RN [address] [place] [address] 05/15/2024 2:00 PM EDT Telemedicine Hematology [facility]cology [facility] Tyree Jordan [address] [facility] [place] [address] Thierno Patel PA-C [address] [facility] [place] [id number] 05/21/2024 2:30 PM EDT Scheduled Telephone [facility], [facility] [address] [facility] [place] [address] Yecenia Back RDN [address] [facility] [place] [address] 06/05/2024 8:40 AM EDT Office Visit Family [address] [place] [phone] Jaime Garcia MD [address] [place] [address] [place] [address] 06/08/2024 2:30 PM EDT Home Visit [facility], [facility] [address] [facility] [place] [address] Sulma Seth, BOBBY [address] [facility] [place] [address] 06/15/2024 10:00 AM EDT Telemedicine H[facility]ology [facility] Tyree Jordan [address] [place] [address] Rosalio Amaral MD [address] [facility] [place] [address] 07/10/2024 9:30 AM EDT Office Visit Cardiology, [facility] [address] [facility] [place] [address] Beth Salter CRNP [address] [facility] [place] [address] 10/30/2024 1:45 PM EST Office Visit Urology, [facility] [address] [facility] [place] [address] Devyn Paniagua MD 27 [facility] [place] [phone] 01/01/2025 10:20 AM EDT Office Visit Otolaryngology [facility] [address] [facility] [place] [address] Haley Aguero PA-C [address] [facility] [place] [address] Health Maintenance Due Date Last Done Comments Cologuard 2015 Fecal Occult Blood Test 2015 Sigmoidoscopy 2015 Depression Screening 01/05/2022 01/05/2021 Diabetic Foot Exam 12/14/2022 12/14/2021, 0 10/15/2020, 06/25/2019 COVID-19 Vaccine (2022- season) 2023 10/06/2021, 06/24/2021, 06/23/2021 Influenza Vaccine [...] Additional history exists CKD PHOS USE SMARTSET 49630 03/09/202502/11, 03/08/2024, 03/07/2024, Additional history exists CKD HGB USE SMARTSET 51355 05/07/202505/07, 04/30/2024, 04/23/2024, Additional history exists DTap/Tdap [...] this encounter Medical Devices Implanted Type Area Bullet Casting Operator Device Identifier Shelf Expiration Date Model / Serial / Lot Port Power Mri W/8fr Cath - [id number] Implanted:Qty: 1 on 09/26/2020 by Simone Michelle MD at OR [facility] Right: Chest CR BARD : PERIPHERAL VASCULAR 10/12/2021 [id number] / / [id number] Description:right IJ Lens Intraoc 19.0 - [id number] - [id number] Implanted:Qty: 1 on 02/03/2021 by Chris Sexton MD at OR [facility] Right: Eye [employer] 09/11/2025 [id number] / [id number] / Lens Intraoc 19.0 - [id number] - [id number] Implanted:Qty: 1 on 02/24/2021 by Chris Sexton MD at OR [facility] Left: Eye [employer]USCH [employer] LOMB 10/12/2025 [id number] / [id number] / [id number] System Urolift - [id number] Implanted:Qty: 2 on 03/17/2023 by Devyn Paniagua MD at OR [facility] N/A: Urethra [employer] 11/18/2023 [id number] / / [id number] System Urolift - [id number] Implanted:Qty: 3 on 03/17/2023 by Devyn Paniagua MD at OR [facility] N/A: Urethra [employer] 11/03/2023 [id number] / / [id number] documented as of this encounter Visit Diagnoses [...] and were consensually agreed upon. Care Teams Confidential Secretary Relationship Specialty Start Date End Date Jaime Garcia MD [address] [place] [address] [place] [id number] PCP - General Family Medicine 10/15/20 documented as of this encounter
--- OUTSIDE RECORDS SUMMARY | 2024-05-13 05:57 | External Medical Summary | Summary of Care ---
Author Name Unknown Organization [facility] Address [address] [place] [address] Phone [phone] Care Team Providers Care Gang Supervisor Pipe Lines Name Role Phone Jaime Garcia MD Primary Care Provide r Encounter Details Date Type Department Care Team (Late st Contact Info) Description 05/03/2024 Telephone [facility] [address] [place] [address] Services, [facility] [address] [place] [address] Allergies Active Allergy Reactions Criticality Noted Date Comments Atorvastatin Muscle pain High 03/30/2019 Ezetimibe Muscle pain High 01/25/2020 documented as of this encounter (statuses as of 05/03/2024) Medications Medication Sig Dispensed Refills Start Date [...] Active Additional Information Patient not taking.Reported on 05/01/2024 Finasteride 5 MG Oral Tablet (Proscar) TAKE 1 TABLET BY MOUTH IN THE MORNING 90 Tablet 3 04/12/2023 4 Active Cholecalciferol 50 MCG (1999 UT) Oral [...] 6 mL 3 06/15/2023 4 Active Pen [place] 32G X 4 MM Use as directed. [...] Additional Information Patient not taking.Reported on 04/06/2024 Albuterol Sulfate HFA 108 (90 Base) MCG/ACT [...] of less than 7.0% ([facility]) take two tablets by mouth in the morning 180 Tablet 1 01/04/2024 Active DULoxetine HCl 20 MG Oral Capsule Delayed Release Particles (Cymbalta) Take 2 Capsules by mouth in the morning. 180 Capsule 1 01/02/2024 Active Magnesium Chloride 64 MG Oral Tablet Delayed Release (Mag64)Indications :Multiple myeloma in relapse ([facility]) Take 1 Tablet by mouth in the [...] the morning. 90 Tablet 1 03/26/2024 Active Additional Information Patient not taking.Reported on 05/01/2024 Fludrocortisone Acetate 0.1 MG Oral Tablet (Florinef) [...] in the morning, Reported on 05/01/2024 Nystatin 507468 UNIT/ML Mouth/Throat SuspensionIndicati ons:Multiple myeloma in relapse [...] as of this encounter (statuses as of 05/03/2024) Active Problems Problem Noted Date Diagnosed Date [...] as of this encounter (statuses as of 05/03/2024) Resolved Problems Problem Noted Date Diagnosed Date [...] as of this encounter (statuses as of 05/03/2024) Immunizations Name Administration Dates Next Due COVID-19, [...] money to buy more. Never true 02/23/20 Within the past 12 months, t he [...] encounter Miscellaneous Notes * Telephone Encounter - Sarika Paniagua LPN - 05/03/2024 4:29 PM EDT [facility] ([facility]) received the referral for home administration of IVIG. Insurance/eligibility check has been completed. Benefits and out of pocket expense have been reviewed with the patient Yes. Patient is agreeable to home infusion services and is agreeable to scheduled date and time of the next home visit 05/10/24 & 05/11/24 per the orders and plan of care. Who will receive IS notification after medication administered? Please contact [facility] at with any questions or additional information. documented in this encounter Plan of Treatment Upcoming Encounters Date Type Department Care Team (Late st Contact Info) Description 05/08/2024 9:00 AM EDT Office Visit Family Medicine [address] [place] [phone] Jaime Garcia MD [address] [place] [address] [place] [address] 05/10/2024 1:00 PM EDT Home Visit [facility] [place] [place] [address] [place] [address] Jessica Browning, BOB[place] [address] [place] [address] 05/11/2024 11:40 AM EDT Office Visit [facility] Disorders [facility] [address] [facility] [place] [phone] Tona Mondragon DO 132 [facility] [place] [address] 05/11/2024 3:45 PM EDT Home Visit [facility] [address] [place] [address] Beth Berry, BOBBY [address] [place] [address] 05/15/2024 2:00 PM EDT Telemedicine Hematology Oncology [facility] [place] [address] [facility] [place] [address] Thierno Patel PA-C [address] [place] [facility] [place] [address] 05/21/2024 2:30 PM EDT Scheduled Telephone [facility], [facility] [address] [facility] [place] [address] Yecenia Back RDN [address] [place] [facility] [place] [address] 06/08/2024 2:30 PM EDT Home Visit [facility], [facility] [address] [facility] [place] [address] Sulma Seth, BOBBY 132 [facility] [place] [address] 06/15/2024 10:00 AM EDT Telemedicine H[facility]ology [facility] Tyree UGARTE [address] [facility] [place] [address] Rosalio Amaral MD [address] [facility] [place] [address] 07/10/2024 9:30 AM EDT Office Visit Cardiology, [facility] [address] [facility] [place] [address] Beth Salter CRNP [address] [facility] [place] [address] 10/30/2024 1:45 PM EST Office Visit Urology, [facility] [address] [facility] [place] [address] Devyn Paniagua MD 27 [facility] [place] [address] 01/01/2025 10:20 AM EDT Office Visit Otolaryngology [facility] 132 [facility] [place] [address] Haley Aguero PA-C [address] [facility] [place] [address] Health Maintenance Due Date Last Done Comments [...] Additional history exists CKD PHOS USE SMARTSET 97972 03/09/202502/11, 03/08/2024, 03/07/2024, Additional history exists CKD HGB USE SMARTSET 77421 04/30/202504/30, 04/23/2024, 04/16/2024, Additional history exists DTaP,Tdap,and Td [...] this encounter Medical Devices Implanted Type Area Continuous Process Tanner Rotary Drum Device Identifier Shelf Expiration Date Model / Serial / Lot Port Power Mri W/8fr Cath - [id number] Implanted:Qty: 1 on 09/26/2020 by Simone Michelle MD at OR [facility] Right: Chest CR BARD : PERIPHERAL VASCULAR 10/12/2021 [id number] / / [id number] Description:right IJ Lens Intraoc 19.0 - [id number] - [id number] Implanted:Qty: 1 on 02/03/2021 by Chris Sexton MD at OR [facility] Right: Eye [employer]USCH [employer]OMB 09/11/2025 [id number] / [id number] / Lens Intraoc 19.0 - [id number] - [id number] Implanted:Qty: 1 on 02/24/2021 by Chris Sexton MD at OR [facility] Left: Eye BAUSCH [employer] LOMB 10/12/2025 [id number] / [id number] System Urolift - [id number] Implanted:Qty: 2 on 03/17/2023 by Devyn Paniagua MD at OR [facility] N/A: Urethra [employer] 11/18/2023 [id number] / / [id number] System Urolift - [id number] Implanted:Qty: 3 on 03/17/2023 by Devyn Paniagua MD at OR [facility] N/A: Urethra [employer] 11/03/2023 [id number] / / [id number] documented as of this encounter Additional Health [...] and were consensually agreed upon. Care Teams Gang Supervisor Pipe Lines Relationship Specialty Start Date End Date Jaime Garcia MD [address] [place] [address] [place] [phone] PCP - General Family Medicine 10/15/20 documented as of this encounter
--- OUTSIDE RECORDS SUMMARY | 2024-05-13 05:57 | External Medical Summary | Summary of Care ---
Author Name Unknown Organization [facility] Address [address] [place] [address] Phone [phone] Care Team Providers Care Sourcing Intern Name Role Phone Jaime Garcia MD Primary Care Provide r Reason for Visit * Reason Comments [facility]: Maintenance Encounter Details Date Type Department Care Team (Late st Contact Info) Description 05/01/2024 4:00 PM EDT [facility] Visit [facility], [facility] [address] [place] [address] Sulma Seth, RN [address] [place] [address] Allergies Active Allergy Reactions Criticality Noted Date Comments Atorvastatin Muscle pain High 03/30/2019 Ezetimibe Muscle pain High 01/25/2020 documented as of this encounter (statuses as of 05/02/2024) Medications Medication Sig Dispensed Refills Start Date [...] Packet by mouth daily as needed. Active oxyCODONE-Acetami nophen 5-325 MG Oral Tablet (Percocet) Take 1 Tablet by mouth every 6 hours as needed for Pain, Severe. 10 Tablet 03/17/2023 Active Additional Information Patient not taking.Reported on 05/01/2024 Finasteride 5 MG Oral Tablet (Proscar) TAKE 1 TABLET BY MOUTH IN THE MORNING 90 Tablet 3 04/12/2023 05/20/20 24 Active Cholecalciferol 50 MCG (2000 UT) Oral TabletIndications :Lambda light chain myeloma [...] mL 3 06/15/2023 06/14/20 24 Active Pen [place] 32G X 4 MM Use as directed. [...] long-term current use of insulin ([facility]) Use as directed to check blood sugars [...] goal of less than 7.0% ([facility]) take two tablets by mouth in the morning 180 Tablet 1 01/04/2024 Active DULoxetine HCl 20 MG Oral Capsule Delayed Release Particles (Cymbalta) Take 2 Capsules by mouth in the morning. 180 Capsule 1 01/02/2024 Active Magnesium Chloride 64 MG Oral Tablet Delayed Release (Mag64)Indication s:Multiple myeloma in relapse ([facility]) Take 1 Tablet by mouth in the morning and 1 Tablet before bedtime. 180 Tablet 3 01/11/2024 Active Additional Information Patient not taking.Reported on 04/06/2024 Prochlorperazine Maleate 10 MG Oral Tablet (Compazine)Indica [...] in the morning, Reported on 05/01/2024 Nystatin 592189 UNIT/ML Mouth/Throat SuspensionIndicat ions:Multiple myeloma in relapse [...] 04/16/2024 Active Acetaminophen 325 MG Oral Tablet (Tylenol)Indicati [...] 04/16/2024 Active Sodium Chloride 0.9 % Intravenous SolutionIndicatio [...] infusion reaction (infusion reaction protocol)). 1 mL 04/16/2024 Active EPINEPHrine (Anaphylaxis) 1 MG/ML Injection SolutionIndicatio ns:Multiple myeloma in relapse (HCC) Inject 0.3 mL into a large muscle as needed for Anaphylaxis (severe allergic reaction). May repeat every 15 min as needed per infusion reaction protocol 2 mL 11 04/16/2024 Active NSS 0.9 % SOLN 100 mL with cefTRIAXone 2 GM SOLR 2 g Administer 2 g intravenously daily. 05/01/20 24 Discontinu ed(Medicat ion List Clean Up) documented as of this encounter (statuses as of 05/02/2024) Active Problems Problem Noted Date Diagnosed Date [...] as of this encounter (statuses as of 05/02/2024) Resolved Problems Problem Noted Date Diagnosed Date [...] as of this encounter (statuses as of 05/02/2024) Immunizations Name Administration Dates Next Due COVID-19, [...] Sign Reading Time Taken Comments Blood Pressure 110/72 05/01/2024 2:39 PM EDT Pulse 102 05/01/2024 2:39 PM EDT Temperature 36.2 C (97.1 F) 05/01/2024 2:39 PM ED T Respiratory Rate - - Oxygen Saturation 99% 05/01/2024 2:39 PM EDT Inhaled Oxygen Concentration - - Weight - - Height - - Body Mass Index - - documented in this encounter Progress Notes * Sulma Seth RN - 05/01/2024 2:07 PM EDT [facility] [employer] Visit Date: 05/01/2024 Time: 2:07 PM Name: Jerardo Ochoa : 1970 Current Concerns: Patient seen for follow up- Multiple myeloma , recent Car-T cell transplant at [facility]. [facility] appointments once a month- patient reports he was told he is supposed to be changed to every3 months. Tony SUAREZ- weekly labs 04/09, 04/10- will receive IVIG in home by [facility] Appetite fair to poor. Had toast this am- reports it tasted horrible Is drinking high calorie/protein shakes Being followed by Cooling System Operator VS wnl Lungs clear bilaterally No sob noted No LE edema noted Voiding without difficulty Bowels wnl- per report Taking fluids well Medication review- Epic reflects current medication regimen Problems/Symptoms: Review of Systems Constitutional: Negative. HENT: Negative. Respiratory: Negative. Cardiovascular: Negative. Gastrointestinal: Negative. Genitourinary: Negative. Musculoskeletal: Negative. Skin: Negative. Neurological: Negative. Hematological: Bruises/bleeds easily. Psychiatric/Behavioral: Negative. Physical Exam: BP 110/72 (BP Site: Right Arm, BP Position: Sitting, BP Cuff Size: Regular) | Pulse 102 | Temp 36.2C (97.1 F) (Tympanic) | SpO2 99% Pain 4 Physical Exam Constitutional: Appearance: Normal appearance. Cardiovascular: Rate and Rhythm: Normal rate and regular rhythm. Pulses: Normal pulses. Pulmonary: Effort: Pulmonary effort is normal. Breath sounds: Normal breath sounds. Abdominal: General: Bowel sounds are normal. Palpations: Abdomen is soft. Musculoskeletal: General: Normal range of motion. Skin: General: Skin is warm and dry. Capillary Refill: Capillary refill takes 2 to 3 seconds. Neurological: General: No focal deficit present. Mental Status: He is alert and oriented to person, place, and time. Psychiatric: Mood and Affect: Mood normal. Behavior: Behavior normal. [facility]-10 Completed this Visit: No. No falls since last visit Treatment/Plan: Continue medications as prescribed Keep all upcoming MD appointments Fall precautions Fluids encouraged High protein calorie shakes Tony GARCIA RN CM follow up in 4 weeks Home Interventions Provided: Reinforced current Plan of Care, including self-management and medication regimen Patient's Goals of Care: Temp>100.4 Inability to keep fluids down-zofran and compazine ineffective Bp <90/60 Patient's 'Red Flags': Temp>100.4 Inability to keep fluids down-zofran and compazine ineffective Bp <90/60 Patient Needs to Remember: Call [facility] at with any new or worsening health concerns or problems, red flag symptoms. Referrals Needed: N/a Follow Up: Is there cellular connectivity/connectivity in the home? Yes Does the patient have internet in the home? Yes Patient encouraged to call the intake phone number for all urgent but not emergent issues. Scheduled to follow up with patient in 4 weeks. Sulma Ellis RN 05/01/2024 2:07 PM documented in this encounter Plan of Treatment Upcoming Encounters Date Type Department Care Team (Late st Contact Info) Description 05/08/2024 9:00 AM EDT Office Visit Family Medicine [address] [place] [address] Jaime Garcia MD [address] [place] [address] [place] [address] 05/10/2024 1:00 PM EDT Home Visit [facility] [address] [place], [place] [phone] Jessica Browning RN [address] [place] [address] 05/11/2024 11:40 AM EDT Office Visit Sleep Disorders Ctr [facility] [address] [facility] [place] [phone] Tona Mondragon, 132 [facility] [place] [address] 05/11/2024 3:45 PM EDT Home Visit [facility] [address] [place] [address] Beth Berry, BOBBY [address] [place] [address] 05/15/2024 2:00 PM EDT [facility]medicine [facility] [address] [place] [address] [place] [address] Thierno Patel PA-C [address] [facility] [place] [address] 05/21/2024 2:30 PM EDT Scheduled Telephone [facility], [facility] [address] [facility] [place] [address] Yecenia Back RDN [address] [facility] [place] [address] 06/08/2024 2:30 PM EDT [facility] Visit [facility], [facility] 132 [facility] [place] [address] Sulma Seth, RN [address] [place] [address] 06/15/2024 10:00 AM EDT Telemedicine [facility] [place], [place] [address] [facility] [place] [address] Rosalio Amaral MD [address] [facility] [place] [address] 07/10/2024 9:30 AM EDT Office Visit Cardiology, [facility] [address] [facility] [place] [address] Beth Salter CRNP [address] [facility] [place] [address] 10/30/2024 1:45 PM EST Office Visit Urology, [facility] [address] [facility] [place] [address] Devyn Paniagua MD [address] [place] [id number] 01/01/2025 10:20 AM EDT Office Visit Otolaryngology [facility] [address] [place] [address] Haley Aguero PA-C [address] [place] [address] Health Maintenance Due Date Last Done Comments [...] Additional history exists CKD PHOS USE SMARTSET 81076 03/09/202502/11, 03/08/2024, 03/07/2024, Additional history exists CKD HGB USE SMARTSET 04248 04/30/202504/30, 04/23/2024, 04/16/2024, Additional history exists DTaP,Tdap,and [...] this encounter Medical Devices Implanted Type Area Green Feed Attendant Device Identifier Shelf Expiration Date Model / Serial / Lot Port Power Mri W/8fr Cath - [id number] Implanted:Qty: 1 on 09/26/2020 by Simone Michelle MD at OR [facility] Right: Chest CR BARD : PERIPHERAL VASCULAR 10/12/2021 [id number] / / [id number] Description:right IJ Lens Intraoc 19.0 - [id number] - [id number] Implanted:Qty: 1 on 02/03/2021 by Chris Sexton MD at OR [facility] Right: Eye BAUSCH [employer] LOMB 09/11/2025 [id number] / [id number] / Lens Intraoc 19.0 - [id number] - [id number] Implanted:Qty: 1 on 02/24/2021 by Chris Sexton MD at OR [facility] Left: Eye BAUSCH & LOMB 10/12/2025 [id number] / [id number] / [id number] System Urolift - [id number] Implanted:Qty: 2 on 03/17/2023 by Devyn Paniagua MD at OR [facility] N/A: Urethra [employer] 11/18/2023 [id number] / / [id number] System Urolift - [id number] Implanted:Qty: 3 on 03/17/2023 by Devyn Paniagua MD at OR [facility] N/A: Urethra [employer] 11/03/2023 [id number] / / [id number] documented as of this encounter Additional Health [...] and were consensually agreed upon. Care Teams Sourcing Intern Relationship Specialty Start Date End Date Jaime Garcia MD [address] [place] [address] [place] [phone] PCP - General Family Medicine 10/15/20 documented as of this encounter"
--- OUTSIDE RECORDS SUMMARY | 2024-05-13 05:57 | External Medical Summary | Summary of Care ---
Author Name Unknown Organization [facility] Address [address] [place] [address] Phone [phone] Care Team Providers Care Test Desk Operator Name Role Phone Jaime Garcia MD Primary Care Provide r Reason for Referral * Evaluate & Treat - Unlimited Visits (Within 30 days (routine)) - Authorized Specialty Diagnoses / Procedures Referred By Contac t Referred To Contact Endocrinology/Metabolism / Endocrinology Diagnoses Alimentary edema (HCC) Jaime Garcia MD [address] [place] [address] [place] [id number] Referral ID Status Reason Start Date Expiration Date Visits Requested Visits Authorized [id number] Authorized Specialty Services Required 05/08/2024 999 999 Question Answer Referral Priority Within 30 days (routine) Where should this appointment be scheduled? [facility] For what condition is the patient being referred? Other Conditions Reason for Visit * Reason Onset Date Comments Referral Requested by Specialist 05/07/2024 Endocrinology Encounter Details Date Type Department Care Team (Late st Contact Info) Description 05/07/2024 Telephone Family Medicine [address] [place] [address] Jaime Garcia MD [address] [place] [address] [place] [address] Referral Requested by Specialist (Endocrin... Allergies Active Allergy Reactions Criticality Noted Date Comments Atorvastatin Muscle pain High 03/30/2019 Ezetimibe Muscle pain High 01/25/2020 documented as of this encounter (statuses as of 05/08/2024) Medications Medication Sig Dispensed Refills Start Date End Date Status CPAP every night at bedtime. Active oxygen IN GAS Use 2 L/min(Oxygen) as directed at bedtime. 1 Each 11/11/2020 Active [employer] Ultra Blue In Vitro Strip (Glucose Blood)Indications [...] 90 Tablet 3 04/12/2023 05/20/20 24 Active Repatha SureClick 140 MG/ML Subcutaneous Solution Auto-injector (evolocumab)Indic ations:Dyslipidem ia, goal LDL below 70 INJECT 140MG (1 INJECTION) UNDER THE SKIN EVERY 14 DAYS. REMOVE FROM REFRIGERATOR 30 MINUTES PRIOR TO INJECTION 6 mL 3 06/15/2023 06/14/20 24 Active Pen [place] 32G X 4 MM Use as directed. [...] long-term current use of insulin ([facility]) Use as directed to check blood [...] goal of less than 7.0% ([facility]) take two tablets by mouth in the [...] Tablet (Oxy IR)Indications:Mu ltiple myeloma in relapse ([facility]) Take 1 Tablet by mouth every 4 hours as needed for breakthrough pain. 30 Tablet 03/21/2024 Active Hydrocortisone 5 MG Oral Tablet (Cortef) take five tablets by mouth in the morning 450 Tablet 1 03/28/2024 Active Additional Information Patient taking differently: take three tablets by mouth in the morning, Reported on 05/01/2024 Nystatin 914663 UNIT/ML Mouth/Throat SuspensionIndicat ions:Multiple myeloma in relapse [...] OF ANAPHYLACTIC REACTION 1000 mL 04/16/2024 Active oxyCODONE-Acetami nophen 5-325 MG Oral Tablet (Percocet) Take 1 Tablet by mouth every 6 hours as needed for Pain, Severe. 10 Tablet 03/17/2023 05/08/20 24 Discontinu ed(Medicat ion List Clean Up) Cholecalciferol 50 MCG (2000 UT) Oral TabletIndications :Lambda light chain myeloma (HCC),Multiple myeloma without remission (HCC) Take 50 mcg by mouth in the morning. 30 Tablet 5 06/14/2023 05/08/20 24 Discontinu ed(Medicat ion List Clean Up) Icosapent Ethyl 1 GM Oral Capsule (Vascepa)Indicati ons:Hyperlipidemi a with target LDL less than 70 Take 2 Capsules by mouth 2 times a day with morning and evening meals. Swallow capsules whole, do not open or break. 360 Capsule 3 07/20/2023 05/08/20 24 Discontinu ed(Medicat ion List Clean Up) Ondansetron HCl 8 MG Oral Tablet (Zofran)Gordyo ns:Nausea Take 1 Tablet by mouth every 8 hours as needed for Nausea. 30 Tablet 3 09/14/2023 05/08/20 Discontinu ed(Medicat ion List Clean Up) Magnesium Chloride 64 MG Oral Tablet Delayed Release (Mag64)Indication s:Multiple myeloma in relapse (HCC) Take 1 Tablet by mouth in the morning and 1 Tablet before bedtime. 180 Tablet 3 01/11/2024 05/08/20 Discontinu ed(Medicat ion List Clean Up) diphenhydrAMINE HCl 50 MG/ML Injection Solution (Benadryl)Indicat ions:Multiple myeloma in relapse (HCC) 25 mg IV push, may repeat x 1 dose, then 50 mg every 2 - 3 hours as needed for anaphylaxis 2 mL 04/16/2024 05/08/20 Discontinu ed(Medicat ion List Clean Up) dexAMETHasone Sodium Phosphate 4 MG/ML Injection Solution (Decadron)Indicat ions:Multiple myeloma in relapse (HCC) Inject 8 mg intravenously as needed for Anaphylaxis (severe allergic reaction). 2 mL 04/16/2024 05/08/20 Discontinu ed(Medicat ion List Clean Up) diphenhydrAMINE HCl 50 MG/ML Injection Solution (Benadryl)Indicat ions:Multiple myeloma in relapse (HCC) Inject 25 mg intravenously as needed (Mild to moderate infusion reaction (infusion reaction protocol)). 1 mL 04/16/2024 05/08/20 Discontinu ed(Medicat ion List Clean Up) EPINEPHrine (Anaphylaxis) 1 MG/ML Injection SolutionIndicatio ns:Multiple myeloma in relapse (HCC) Inject 0.3 mL into a large muscle as needed for Anaphylaxis (severe allergic reaction). May repeat every 15 min as needed per infusion reaction protocol 2 mL 04/16/2024 05/08/20 Discontinu ed(Medicat ion List Clean Up) documented [...] myeloma without remission 06/14/2014 Overview: Dr Rodriges/ [facility] DIRECTIVE INFORMATION 10/13/2006 Overview: [...] Telephone Encounter - Ellyn Lyn CMA - 05/08/2024 3:06 PM EDT Faxed * Telephone Encounter - Jaime Garcia MD - 05/08/2024 8:03 AM EDT Referral signed * Telephone Encounter - Ellyn Lyn CMA - 05/07/2024 2:49 PM EDT We received a fax from [facility] for an Insurance Referral Request. Dx is E43.0 Fax to documented in this encounter Plan of Treatment Upcoming Encounters Date Type Department Care Team (Late st Contact Info) Description 05/10/2024 1:00 PM EDT Home Visit [facility] [address] [place] [address] Jessica Browning RN [address] [place] [address] 05/11/2024 11:40 AM EDT Office Visit Sleep Disorders Ctr [facility] [address] [place] [address] Tona Mondragon, [address] [place] [address] 05/11/2024 2:00 PM EDT Home Visit [facility] [address] [place] [address] Beth Berry, BOBBY [address] [place] [address] 05/15/2024 2:00 PM EDT Telemedicine [facility] [place] [address] [place] [address] Thierno Patel PA-C [address] [facility] [place] [address] 05/21/2024 2:30 PM EDT Scheduled Telephone [facility], [facility] [address] [facility] [place] [address] Yecenia Back, JORGE [address] [facility] [place] [address] 06/05/2024 8:40 AM EDT Office Visit Family Medicine [address] [place] [phone] Jaime Garcia MD [address] [place] [address] [place] [address] 06/08/2024 2:30 PM EDT [facility] Visit [facility], [facility] [address] [facility] [place] [address] Sulma Seth, BOBBY 132 [facility] [place] [address] 06/15/2024 10:00 AM EDT Telemedicine H[facility]ology [facility] [place] [address] [facility] [place] [address] Rosalio Amaral MD [address] [facility] [place] [address] 07/10/2024 9:30 AM EDT Office Visit Cardiology, [facility] [address] [facility] [place] [address] Beth Salter CRNP [address] [place] [address] [place] [address] 10/30/2024 1:45 PM EST Office Visit Urology, [facility] [address] [place] [address] Devyn Paniagua MD [address] [place] [address] 01/01/2025 10:20 AM EDT Office Visit Otolaryngology [facility] [address] [place] [address] Haley Aguero PA-C [address] [place] [address] Scheduled Referrals Name Type Priority Associated Diagnoses Order Schedule ADULT ENDOCRINOLOGY REFERRAL OP Referral Within 30 days (routine) Alimentary edema (HCC) Ordered: 05/08/2024 Health Maintenance Due Date Last Done Comments [...] 11/07/2024 05/07/2024, 04/12, 04/23/2024, Additional history exists Diabetic Eye Exam 01/18/2025 01/19/2024, , 07/11/2023, Additional history exists Albumin/Creatinine Ratio 01/26/2025 024, 12/30/2023, 09/08/2023, Additional history exists CKD PHOS USE SMARTSET 40590 03/09/202502/11, 03/08/2024, 03/07/2024, Additional history exists CKD HGB USE SMARTSET 00165 05/07/202505/07, 04/30/2024, 04/23/2024, Additional history exists DTap/Tdap [...] this encounter Medical Devices Implanted Type Area Geographic Information System Analyst Device Identifier Shelf Expiration Date Model / Serial / Lot Port Power Mri W/8fr Cath - [id number] Implanted:Qty: 1 on 09/26/2020 by Simone Michelle MD at OR [facility] Right: Chest CR BARD : PERIPHERAL VASCULAR 10/12/2021 [id number] / / [id number] Description:right IJ Lens Intraoc 19.0 - [id number] - [id number] Implanted:Qty: 1 on 02/03/2021 by Chris Sexton MD at OR [facility] Right: Eye [employer]USCH [employer] LOMB 09/11/2025 [id number] / [id number] / Lens Intraoc 19.0 - [id number] - [id number] Implanted:Qty: 1 on 02/24/2021 by Chris Sexton MD at OR [facility] Left: Eye BAUSCH & LOMB 10/12/2025 [id number] / [id number] / [id number] System Urolift - [id number] Implanted:Qty: 2 on 03/17/2023 by Devyn Paniagua MD at OR [facility] N/A: Urethra [employer] 11/18/2023 [id number] / / [id number] System Urolift - [id number] Implanted:Qty: 3 on 03/17/2023 by Devyn Paniagua MD at OR [facility] N/A: Urethra [employer] 11/03/2023 [id number] / / [id number] documented as of this encounter Visit Diagnoses Diagnosis Alimentary edema (HCC)- Primary Other severe protein-calorie malnutrition documented in this encounter Additional Health Concerns [...] and were consensually agreed upon. Care Teams Test Desk Operator Relationship Specialty Start Date End Date Jaime Garcia MD [address] [place] [address] [place] [address] PCP - General Family Medicine 10/15/20 documented as of this encounter
--- OUTSIDE RECORDS SUMMARY | 2024-05-13 05:57 | External Medical Summary | Summary of Care ---
Author Name Unknown Organization [facility] Address [address] [place] [address] Phone [phone] Care Team Providers Care Sawyer Cork Slabs Name Role Phone Jaime Garcia MD Primary Care Provide r Encounter Details Date Type Department Care Team (Late st Contact Info) Description 05/08/2024 Orders Only Family Medicine [address] [place] [phone] Jaime Garcia MD [address] [place] [address] [place] [address] Allergies Active Allergy Reactions Criticality Noted Date [...] 6 mL 3 06/15/2023 4 Active Pen [place] 32G X 4 MM Use as directed. [...] in the morning, Reported on 05/01/2024 Nystatin 768105 UNIT/ML Mouth/Throat SuspensionIndicati ons:Multiple myeloma in relapse [...] myeloma without remission 06/14/2014 Overview: Dr Rodriges/ [facility] DIRECTIVE INFORMATION 10/13/2006 Overview: [...] EDT Home Visit [facility] [address] [place] [address] Jessica Browning RN [address] [place] [address] 05/11/2024 11:40 AM EDT Office Visit Sleep Disorders Ctr [facility] [address] [facility] [place] [phone] Tona Mondragon, 132 [facility] [place] [address] 05/11/2024 2:00 PM EDT Home Visit [facility] [address] [place] [address] Beth Berry, BOBBY [address] [place] [address] 05/15/2024 2:00 PM EDT Telemedicine H[facility] Tyree UGARTE [address] [facility] [place] [address] Thierno Patel PA-C [address] [facility] [place] [address] 05/21/2024 2:30 PM EDT Scheduled Telephone [facility] [address] [facility] [place] [address] Yecenia Back, ALEXANDREN [address] [facility] [place] [address] 06/05/2024 8:40 AM EDT Office Visit Family Medicine [address] [place] [phone] Jaime Garcia MD [address] [place] [address] [place] [address] 06/08/2024 2:30 PM EDT [facility] Visit [facility] 132 [facility] [place] [address] Sulma Seth, RN 132 [facility] [place] [address] 06/15/2024 10:00 AM EDT [facility]medicine [facility] [address] [facility] [place] [address] Rosalio Amaral MD [address] [facility] [place] [address] 07/10/2024 9:30 AM EDT Office Visit Cardiology, [facility] [address] [facility] [place] [address] Beth Salter CRNP [address] [place] [address] [place] [address] 10/30/2024 1:45 PM EST Office Visit Urology, [facility] 132 [facility] [place] [address] Devyn Paniagua MD [address] [place] [address] 01/01/2025 10:20 AM EDT Office Visit Otolaryngology [facility] [address] [place] [address] Haley Aguero PA-C [address] [place] [address] Health Maintenance Due Date Last Done Comments [...] 03/12, 01/31/2023, Additional history exists GFR 10/31/2024 05/07/2024, 04/12, 04/23/2024, Additional history exists Diabetic Eye Exam 01/18/2025 01/19/2024, , 07/11/2023, Additional history exists Albumin/Creatinine Ratio 01/26/202501/26/2 024, 12/30/2023, 09/08/2023, Additional history exists CKD PHOS USE SMARTSET 94351 03/09/202502/11, 03/08/2024, 03/07/2024, Additional history exists CKD HGB USE SMARTSET 09237 04/30/202505/07, 04/30/2024, 04/23/2024, Additional history exists DTap/Tdap Vaccines [...] this encounter Medical Devices Implanted Type Area Fiber Optic Technician Device Identifier Shelf Expiration Date Model / Serial / Lot Port Power Mri W/8fr Cath - [id number] Implanted:Qty: 1 on 09/26/2020 by Simone Michelle MD at OR [facility] Right: Chest CR BARD : PERIPHERAL VASCULAR 10/12/2021 [id number] / / [id number] Description:right IJ Lens Intraoc 19.0 - [id number] - [id number] Implanted:Qty: 1 on 02/03/2021 by Chris Sexton MD at OR [facility] Right: Eye [employer] 09/11/2025 [id number] / [id number] / Lens Intraoc 19.0 - [id number] - [id number] Implanted:Qty: 1 on 02/24/2021 by Chris Sexton MD at OR [facility] Left: Eye [employer] LOM[employer] 10/12/2025 [id number] / [id number] / [id number] System Urolift - [id number] Implanted:Qty: 2 on 03/17/2023 by Devyn Paniagua MD at OR [facility] N/A: Urethra [employer] 11/18/2023 [id number] / / [id number] System Urolift - [id number] Implanted:Qty: 3 on 03/17/2023 by Devyn Paniagua MD at OR [facility] N/A: Urethra [employer] 11/03/2023 [id number] / / [id number] documented as of this encounter Procedures Procedure Name Priority Date/Time Associated Diagnosis Comments CHEMISTRY-OUTSIDE Routine 05/07/2024 documented in this encounter Results * (ABNORMAL) CHEMISTRY-OUTSIDE (05/07/2024) Not all results display below - see scan for full detail OUTSIDE LAB (SEE SCANNED REPORT) Comment:SEE SCAN - PTINR,CBC D ,CMP, CRP, FERRITIN CREATININE-OUTSID E LAB 1.23 0.70 - 1.30 MG/DL OUTSIDE LAB (SEE SCANNED REPORT) EGFR-OUTSIDE LAB 70 ML/MIN OUT SIDE LAB (SEE SCANNED REPORT) POTASSIUM-OUTSIDE LAB 3.8 3.5 - 5.1 MMOL/L OUTSIDE LAB (SEE SCANNED REPORT) GLUCOSE-OUTSIDE LAB 110 70 - 110 MG/DL OUTSIDE LAB (SEE SCANNED REPORT) HOURS [...] LAB OUTSIDE LAB (SEE SCANNED REPORT) HEMOGLOBIN, Z2Q-EMEFOAS LAB OUTSIDE LAB (SEE SCANNED REPORT) PHOSPHORUS-OUTSID E LAB OUTSIDE LAB (SEE SCANNED REPORT) PTH-OUTSIDE LAB OUTS ALVAREZ LAB (SEE SCANNED REPORT) MICROALBUMIN RATIO-OUTSIDE LAB OUTSIDE LA B (SEE SCANNED REPORT) PROTEIN, UA-OUTSIDE LAB OUTSIDE LAB (SEE SCANNED REPORT) HGB 12.1(A) 13.5 - 18.0 G/DL OUTSIDE LAB (SEE SCANNED REPORT) 05/07/2024 Jaime Garcia MD LABORATORY OUTSIDE LAB (SEE [...] and were consensually agreed upon. Care Teams Sawyer Cork Slabs Relationship Specialty Start Date End Date Jaime Garcia MD [address] [place] [address] [place] [phone] PCP - General Family Medicine 10/15/20 documented as of this encounter
--- OUTSIDE RECORDS SUMMARY | 2024-05-13 05:57 | External Medical Summary ---
Author Name Unknown Address Unknown Organization K01:[facility] [place] [address] [facility] [address] Laboratory Report Ordering Provider Test Date Status DICKTAYLORDANNY ANGELESRISSA 05/08/2024 10:07:22 Jackie l Observation Date Value Abnormality Reference (Units ) Status HbA1C 05/08/2024 10:07:22 6.5 Above high normal 4. 0-5.6 (%) Final The use of HbA1c to monitor glycemic status is based on normal hemoglobin and HbA composition. This test should not be used in patients with abnormal hemoglobin that affects the half life of the red blood cell or the in vivo glycation rates. Glucose, estimated average 05/08/2024 10:07:22 140 Above high normal <126 (mg/dL) Renny hickman Performing Location LAB[facility]ORY [facility] [place] - [address] [facility] [address]
--- OUTSIDE RECORDS SUMMARY | 2024-05-13 05:57 | External Medical Summary | Summary of Care ---
Author Name Unknown Organization [facility] Address [address] [place] [address] Phone [phone] Care Team Providers Care Conference Organizer Name Role Phone Jaime Garcia MD Primary Care Provide r Reason for Visit * Reason Comments Medication Refill Encounter Details Date Type Department Care Team (Late st Contact Info) Description 05/09/2024 Refill Urology, [facility] 132 [facility] [place] [address] Devyn Alvarenga MD [address] [facility] [place] [phone] Allergies Active Allergy Reactions Criticality Noted Date [...] mL 3 06/15/2023 06/14/20 24 Active Pen [place] 32G X 4 MM [...] than 7.0% ([facility]) take two tablets by mouth in [...] in the morning, Reported on 05/01/2024 Nystatin 558774 UNIT/ML Mouth/Throat SuspensionIndicat ions:Multiple myeloma in relapse [...] infusion reaction protocol 2 mL 05/09/2024 Active Finasteride 5 MG Oral Tablet (Proscar) TAKE 1 TABLET BY MOUTH IN THE MORNING 90 Tablet 3 04/12/2023 05/09/20 24 Discontinu ed(Refill) documented as of this [...] encounter Miscellaneous Notes * Telephone Encounter - Devyn Alvarenga MD - 05/09/2024 3:08 PM EDTSigned Prescriptions: Disp Refills Finasteride 5 MG Oral Tablet (Proscar) 90 Tab*3 Sig: TAKE 1 TABLET BY MOUTH IN THE MORNING Authorizing Provider: DEVYN ALVARENGA * Telephone Encounter - Beth Sánchez LPN - 05/09/2024 2:44 PM EDTPending Prescriptions: Disp Refills Finasteride 5 MG Oral Tablet (Proscar) 90 Tab*3 Sig: TAKE 1 TABLET BY MOUTH IN THE MORNING * Telephone Encounter - Beth Sánchez LPN - 05/09/2024 2:44 PM EDT Please refill the requested medication(s). Finasteride 10/24/2023 (in office), Visit date not found (telemedicine) 10/30/2024 Review of patient's allergies indicates: Allergen Reactions Atorvastatin Muscle pain Zetia [Ezetimibe] Muscle pain documented in this encounter Plan of Treatment Upcoming Encounters Date Type Department Care Team (Late st Contact Info) Description 05/10/2024 1:00 PM EDT Home Visit [facility] [address] [place] [address] Jessica Browning RN [address] [place], [place] [phone] 05/11/2024 11:40 AM EDT Office Visit [facility] Disorders Ctr [facility] 132 [facility] [place] [phone] Tona Mondragon DO [address] [facility] [place] [address] 05/11/2024 2:00 PM EDT Home Visit [facility] [address] [place] [address] Beth Berry, BOBBY [address] [place] [address] 05/15/2024 2:00 PM EDT [facility]med[facility] [address] [facility] [place] [address] Thierno Patel PA-C [address] [facility] [place] [address] 05/21/2024 2:30 PM EDT Scheduled Telephone [facility], [facility] [address] [facility] [place] [address] Yecenia Back RDN [address] [facility] [place] [address] 06/05/2024 8:40 AM EDT Office Visit Family [address] [place] [phone] Jaime Garcia MD [address] [place] [address] [place] [address] 06/08/2024 2:30 PM EDT Home Visit [facility], [facility] [address] [place] [address] Sulma Seth, BOBBY [address] [facility] [place] [address] 06/15/2024 10:00 AM EDT Telemedicine [facility] [address] [facility] [place] [address] Rosalio Amaral MD [address] [facility] [place] [address] 07/10/2024 9:30 AM EDT Office Visit Cardiology, [facility] 132 [facility] [place] [address] Beth Salter CRNP [address] [facility] [place] [address] 10/30/2024 1:45 PM EST Office Visit Urology, [facility] [address] [facility] [place] [address] Devyn Alvarenga MD [address] [facility] [place] [address] 01/01/2025 10:20 AM EDT Office Visit Otolaryngology [facility] [address] [facility] [place] [address] Haley Aguero PA-C [address] [facility] [place] [address] Health Maintenance Due Date Last Done Comments [...] Additional history exists CKD PHOS USE SMARTSET 00431 03/09/202502/11, 03/08/2024, 03/07/2024, Additional history exists CKD HGB USE SMARTSET 42005 05/07/202505/07, 04/30/2024, 04/23/2024, Additional history exists DTap/Tdap [...] this encounter Medical Devices Implanted Type Area Can Worker Device Identifier Shelf Expiration Date Model / Serial / Lot Port Power Mri W/8fr Cath - [id number] Implanted:Qty: 1 on 09/26/2020 by Simone Michelle MD at OR [facility] Right: Chest CR BARD : PERIPHERAL VASCULAR 10/12/2021 [id number] / / [id number] Description:right IJ Lens Intraoc 19.0 - [id number] - [id number] Implanted:Qty: 1 on 02/03/2021 by Chris Sexton MD at OR [facility] Right: Eye [employer] 09/11/2025 [id number] / [id number] / Lens Intraoc 19.0 - [id number] - [id number] Implanted:Qty: 1 on 02/24/2021 by Chris Sexton MD at OR [facility] Left: Eye [employer]USCH [employer]OM[employer] 10/12/2025 [id number] / [id number] / [id number] System Urolift - [id number] Implanted:Qty: 2 on 03/17/2023 by Devyn Alvarenga MD at OR [facility] N/A: Urethra [employer] 11/18/2023 [id number] / / [id number] System Urolift - [id number] Implanted:Qty: 3 on 03/17/2023 by Devyn Alvarenga MD at OR [facility] N/A: Urethra [employer] 11/03/2023 [id number] / / [id number] documented as of this encounter Additional Health [...] and were consensually agreed upon. Care Teams Conference Organizer Relationship Specialty Start Date End Date Jaime Garcia MD [address] [place] [address] [place] [phone] PCP - General Family Medicine 10/15/20 documented as of this encounter
--- OUTSIDE RECORDS SUMMARY | 2024-05-13 05:57 | External Medical Summary | Summary of Care ---
Author Name Unknown Organization [facility] Address [address] [place] [address] Phone [phone] Care Team Providers Care Academic Registrar Name Role Phone Jaime Garcia MD Primary Care Provide r Reason for Visit * Reason Comments Hospital Follow-Up Encounter Details Date Type Department Care Team (Latest Contact Info) Description 05/08/2024 9:00 AM EDT Office Visit Family Medicine [address] [phone] Jaime Garcia MD [address] [place] [address] [employer] [phone] Decreased appetite*; Type 2 diabetes mellitus with hemoglobin A1c goal of less than 7.0% ([facility]); PAF (paroxysmal atrial fibrillation) ([facility]); DEBBY (obstructive sleep apnea); Lambda light chain myeloma ([facility]); Adrenal insufficiency ([facility]) Allergies Active Allergy Reactions Criticality Noted [...] goal of less than 7.0% ([facility]) Test once daily DxE11.9. 100 Each [...] mL 3 06/15/2023 06/14/20 24 Active Pen Redgranite 32G X 4 MM Use as directed. [...] long-term current use of insulin ([facility]) Use as directed to check [...] goal of less than 7.0% ([facility]) take two tablets by mouth in [...] Tablet (Oxy IR)Indications:Mu ltiple myeloma in relapse ([facility]) Take 1 Tablet by mouth every 4 hours as needed for breakthrough pain. 30 Tablet 03/21/2024 Active Hydrocortisone 5 MG Oral Tablet (Cortef) take five tablets by mouth in the morning 450 Tablet 1 03/28/2024 Active Additional Information Patient taking differently: take three tablets by mouth in the morning, Reported on 05/01/2024 Nystatin 705512 UNIT/ML Mouth/Throat SuspensionIndicat ions:Multiple myeloma in relapse ([facility]) Swish and swallow 5 mL [...] at bedtime. 30 Tablet 5 05/08/2024 Active oxyCODONE-Acetami nophen 5-325 MG Oral Tablet (Percocet) Take 1 Tablet by mouth every 6 hours as needed for Pain, Severe. 10 Tablet 03/17/2023 05/08/20 24 Discontinu ed(Medicat ion List Clean Up) Cholecalciferol 50 MCG (1999 UT) Oral TabletIndications [...] Up) Ondansetron HCl 8 MG Oral Tablet (Zofran)Indicatio ns:Nausea Take 1 Tablet by mouth every 8 hours as needed for Nausea. 30 Tablet 3 09/14/2023 05/08/20 24 Discontinu ed(Medicat ion List Clean Up) Magnesium Chloride 64 MG Oral Tablet Delayed Release (Mag64)Indication s:Multiple myeloma in relapse (HCC) Take 1 Tablet by mouth in the morning and 1 Tablet before bedtime. 180 Tablet 3 01/11/2024 05/08/20 24 Discontinu ed(Medicat ion List Clean Up) diphenhydrAMINE HCl 50 MG/ML Injection Solution (Benadryl)Indicat ions:Multiple myeloma in relapse (HCC) 25 mg IV push, may repeat x 1 dose, then 50 mg every 2 - 3 hours as needed for anaphylaxis 2 mL 04/16/2024 05/08/20 24 Discontinu ed(Medicat ion List Clean Up) dexAMETHasone Sodium Phosphate 4 MG/ML Injection Solution (Decadron)Indicat ions:Multiple myeloma in relapse (HCC) Inject 8 mg intravenously as needed for Anaphylaxis (severe allergic reaction). 2 mL 04/16/2024 05/08/20 24 Discontinu ed(Medicat ion List Clean Up) diphenhydrAMINE [...] infusion reaction protocol 2 mL 04/16/2024 05/08/20 24 Discontinu ed(Medicat ion List Clean [...] Sign Reading Time Taken Comments Blood Pressure 126/80 05/08/2024 9:13 AM EDT Pulse 91 05/08/2024 9:13 AM EDT Temperature 36.1 C (96.9 F) 05/08/2024 9:13 AM ED T Respiratory Rate - - Oxygen Saturation 99% 05/08/2024 9:13 AM EDT Inhaled Oxygen Concentration - - Weight 63.5 kg (140 lb) 05/08/2024 9:13 AM EDT Height - - Body Mass Index 20.67 04/16/2024 12:27 PM EDT documented in this encounter Progress Notes * Jaime Garcia MD - 05/08/2024 9:27 AM EDT Subjective: HPI: Jerardo Ochoa Jr. is a 54 year old male with hx of Lambda light chain Multiple myeloma (2013) s/p autologous stem cell transplantation, Amyloidosis, Cardiac AL Amyloidosis, CKD III, Afib on AC, DMII,CAD, DEBBY on CPAP, HLD, peripheral neuropathy (worsened after Velcade tx), On chronic steroid, C.diff infection, Chronic Hep B infection seen for Pt recieved CAR T cell infusion (@ [facility]) - complicated by a Cytokine Release syndrome with Hypoadrenalism and orthostatic hypotension - Hypoadrenalism resolved with Florinef and hydrocortisone - also started on fluconazole, finasteride and acyclovir - pt was discharged from [facility] on March (early) Today: - getting weekly CBC and BMP - Dapsone was stopped 3 weeks ago - not taking midodrine ----- per pt he does not have any orthostatin hypotension ----- BP: 110-120s/70-80s - denied any leg swelling Main concerns: - severe decreased appetite --- associated with nausea --------taking compazine -- denied any dysphagia --- on Protonix - denied any abd pain or constipation - LBM: today Patient Active Problem List Diagnosis Degeneration of lumbosacral intervertebral disc ADVANCE DIRECTIVE INFORMATION Multiple myeloma without remission (HCC) Organ-limited amyloidosis (HCC) PAF (paroxysmal atrial fibrillation) (HCC) Anxiety Type 2 diabetes mellitus with hemoglobin [...] Current Outpatient Medications Medication Sig Dispense Refill oxygen IN GAS Use 2 L/min(Oxygen) as directed at bedtime. 1 Each 0 OneTouch Ultra Blue In Vitro Strip (Glucose Blood) Use as directed daily. Test once daily DxE11.9 100 Strip 5 Lancets Test once daily DxE11.9. 100 Each 5 Acyclovir 400 MG Oral Tablet (Zovirax) Take one tablet once daily 180 Tablet 3 Acetaminophen 325 MG Oral Tablet (Tylenol) Take two 325 mg tablets by mouth one hour prior to Hizentra. 30 Tablet 3 Polyethylene Glycol 3350 17 GM Oral Packet Take 1 Packet by mouth daily as needed. Finasteride 5 MG Oral Tablet (Proscar) TAKE 1 TABLET BY MOUTH IN THE MORNING 90 Tablet 3 Repatha SureClick 140 MG/ML Subcutaneous Solution Auto-injector (evolocumab) INJECT 140MG (1 INJECTION) UNDER THE SKIN EVERY 14 DAYS. REMOVE FROM REFRIGERATOR 30 MINUTES PRIOR TO INJECTION 6 mL 3 Pen Redgranite 32G X 4 MM Use as directed. Inject Lantus once daily. 50 Each 3 Pantoprazole Sodium 20 MG Oral Tablet Delayed Release (Protonix) TAKE ONE TABLET BY MOUTH EVERY DAYIN THE MORNING 90 Tablet 2 Dexcom G7 Sensor Use as directed to check blood sugars daily. Change every 10 days 9 Each 3 Albuterol Sulfate HFA 108 (90 Base) MCG/ACT Inhalation Aerosol Solution Inhale 2 Puffs by mouth every 6 hours as needed for Cough or Shortness of Breath. 54 g 1 Levothyroxine Sodium 50 MCG Oral Tablet (Levoxyl) TAKE 1 TABLET BY MOUTH DAILY AT LEAST 30 MINUTES PRIOR TO FIRST MEAL OF THE DAY OR OTHER MEDICATIONS 90 Tablet 3 metFORMIN HCl ER 500 MG Oral Tablet Extended Release 24 Hour (Glucophage XR) take two tablets by mouth in the morning 180 Tablet 1 DULoxetine HCl 20 MG Oral Capsule Delayed Release Particles (Cymbalta) Take 2 Capsules by mouth in the morning. 180 Capsule 1 Prochlorperazine Maleate 10 MG Oral Tablet (Compazine) TAKE ONE TABLET BY MOUTH EVERY SIX HOURS NEEDED FOR NAUSEA 40 Tablet 0 Folic Acid 400 MCG Oral Tablet TAKE ONE TABLET BY MOUTH IN THE MORNING 90 Tablet 3 Vemlidy 25 MG Oral Tablet (Tenofovir Alafenamide Fumarate) Take 1 tablet by mouth in the morning. 90 Tablet 1 Apixaban 5 MG Oral Tablet [...] needed for breakthrough pain. 30 Tablet 0 Hydrocortisone 5 MG Oral Tablet (Cortef) take five tablets by mouth in the morning (Patient taking differently: take three tablets by mouth in the morning) 450 Tablet 1 Nystatin 278355 UNIT/ML Mouth/Throat Suspension Swish and swallow 5 mL in the morning and 5 mL at noon and 5 mL in the evening and 5 mL before bedtime. 60 mL 1 Privigen 40 GM/400ML Intravenous Solution (Immune Globulin Human-IVIG 10%) Administer 15 gm IV x 2 days every month. 300 mL 11 Acetaminophen 325 MG Oral Tablet (Tylenol) Take 2 Tablets by mouth as needed (for mild to moderate reaction (infusion reaction protocol)). Sodium Chloride 0.9 % Intravenous Solution TO BE ADMINISTERED IN THE EVENT OF ANAPHYLACTIC [id number] mL 11 Mirtazapine 15 MG Oral Tablet (Remeron) Take 1 Tablet by mouth at bedtime. 30 Tablet 5 CPAP every night at bedtime. 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 Needs MRI pancreas April 2025 Tobacco use disorder Past Surgical History: Procedure Laterality Date CENTRAL LINE PLACEMENT-FLUORO ([facility]) 09/26/2020 CENTRAL LINE PLACEMENT-FLUORO performed by Simone Michelle MD at [facility] COLONOSCOPY, DIAGNOSTIC (RECTUM) 09/09/2021 normal bx / COLONOSCOPY FLEXIBLE PROXIMAL DIAGNOSTIC performed by Philip Graham MD at ENDOSCOPY [facility] CYSTOURETHROSCOPY, W/ TRANSPROSTATIC IMPLANT N/A 03/17/2023 CYSTOURETHROSCOPY, WITH INSERTION OF PERMANENT ADJUSTABLE TRANSPROSTATI IMPLANT; SINGLE IMPLANT performed by Devyn Paniagua MD at OR [facility] EGD, FLEXIBLE, DIAGNOSTIC 10/15/2019 normal bx / ESOPHAGOGASTRODUODENOSCOPY (EGD), FLEXIBLE, TRANSORAL, DIAGNOSTIC performed by Mellissa Mari MD at ENDOSCOPY [facility] EGD, FLEXIBLE, DIAGNOSTIC N/A 05/06/2023 esophageal plaques, biopsies confirm rebeca/EGD/MN EGD, W/ENDOSCOPIC US N/A 05/06/2023 multiple cystic lesion pancreatic head and body/EUS/MN INFORMATION vasectomy reversal INFORMATION status post autologous stem cell transplantation in 2014 - per cardiology note INSER TUNN ACC DEV;5 YRS/OLDER N/A 09/26/2020 INSERT TUNNELED CENTRAL VENOUS ACCESS WITH SUBQ PORT performed by Simone Michelle MD at OR [facility] MRI L SPINE W WO DAVIN Lee, was told he had a herniated disc REMOVE CATARACT, INSERT LENS PROSTH Right 02/03/2021 RIGHT EXTRACAPSULAR CATARACT REMOVAL WITH INTRAOCULAR LENS performed by Chris Sexton MD at OR [facility] REMOVE CATARACT, INSERT LENS PROSTH Left 02/24/2021 LEFT EXTRACAPSULAR CATARACT REMOVAL WITH INTRAOCULAR LENS performed by Chris Sexton MD at OR [facility] VASECTOMY 1999 Review of patient's allergies indicates: [...] Vaping/E-Cigarette Devices ROS: -Per HPI OBJECTIVE: BP 126/80 | Pulse 91 | Temp 36.1 C (96.9 F) | Wt 63.5 kg (140 lb) | SpO2 99% | BMI 20.67 kg/m| BSA 1.76 m PHYSICAL EXAM: Vitals are reviewed General:. NAD, well developed HEENT:. Normal Conjunctiva, EOMI Cardiac:. Normal S1, S2, no murmur Lungs:. CTA, no wheezing or crackles Abd:. soft, ND, NT MSK:. Trace b/l LE pitting edema Psych:. AAOx3, normal affect ASSESSMENT/PLAN: Pt's BMP weekly has been stable and normal electrolytes Due to decreased appetitive will try Remeron Will contact [facility] and change the lab draw to every other week Continue Diflucan, Florinef, Hydrocortisone, and acylovir Decreased appetite (Primary) - Mirtazapine 15 MG Oral Tablet (Remeron); Take 1 Tablet by mouth at bedtime. Type 2 diabetes mellitus with hemoglobin A1c goal of less than 7.0% (HCC) - HEMOGLOBIN A1C PAF (paroxysmal atrial fibrillation) (HCC) DEBBY (obstructive sleep apnea) Lambda light chain myeloma (HCC) Adrenal insufficiency (HCC) Follow Up: Return in about 1 month (around 06/08/2024). I spent a total of 40-54 minutes (exact time 45 mins) on the date of service in preparation, delivery, and documentation of the care provided to Jerardo Ochoa Jr. excluding any time spent in the performance of separately billed services or time spent by another provider/QHP. Jaime Garcia MD Family medicine, [address] [address] documented in this encounter Nursing Notes * Ellyn Lyn CMA - 05/08/2024 9:06 AM EDT He is here for a follow up from the T cell treatment he had done in [facility]. He has extreme weakness, fatigue, inability to eat and nausea. Occasional vomiting. [facility] documented in this encounter Plan of Treatment Upcoming Encounters Date Type Department Care Team (Late st Contact Info) Description 05/10/2024 1:00 PM EDT Home Visit [facility] [address] [place] [address] Jessica Browning RN [address] [place] [address] 05/11/2024 11:40 AM EDT Office Visit Sleep Disorders Ctr [facility] [address] [facility] [phone] Tona Mondragon DO [address] [facility] [place] [address] 05/11/2024 2:00 PM EDT Home Visit [facility] [address] [place] [address] Beth Berry, BOBBY [address] [place] [address] 05/15/2024 2:00 PM EDT Telemedicine [facility] Nikki Tyree [address] [place] [address] Thierno Patel PA-C [address] [place] [address] 05/21/2024 2:30 PM EDT Scheduled Telephone [facility], [facility] [address] [place] [address] Yecenia Back, ALEXANDREN [address] [place] [address] 06/05/2024 8:40 AM EDT Office Visit Family Medicine [address] [phone] Jaime Garcia MD [address] [place] [address] [place] [address] 06/08/2024 2:30 PM EDT [facility] Visit [facility], [facility] [address] [facility] [place] [address] Sulma Seth, BOBBY 132 [facility] [place] [address] 06/15/2024 10:00 AM EDT Telemedicine H[facility]ology [facility] [place] [address] [place] [address] Rosalio Amaral MD [address] [place] [address] 07/10/2024 9:30 AM EDT Office Visit Cardiology, [facility] [address] [facility] [place] [address] Beth Salter CRNP [address] [place] [address] [place] [address] 10/30/2024 1:45 PM EST Office Visit Urology, [facility] [address] [place] [address] Devyn Paniagua MD [address] [place] [address] 01/01/2025 10:20 AM EDT Office Visit Otolaryngology [facility] [address] [place] [address] Haley Aguero PA-C [address] [place] [address] Pending Results Name Type Priority Associated Diagnoses Date /Time HEMOGLOBIN A1C Lab Routine Type 2 diabetes mellitus with hemoglobin A1c goal of less than 7.0% ([facility]) 05/08/2024 10:07 AM EDT Health Maintenance Due Date Last [...] Additional history exists CKD PHOS USE SMARTSET 82348 03/09/202502/11, 03/08/2024, 03/07/2024, Additional history exists CKD HGB USE SMARTSET 60264 04/30/202504/30, 04/23/2024, 04/16/2024, Additional history exists DTap/Tdap [...] this encounter Medical Devices Implanted Type Area Arborer Device Identifier Shelf Expiration Date Model / Serial / Lot Port Power Mri W/8fr Cath - [id number] Implanted:Qty: 1 on 09/26/2020 by Simone Michelle MD at OR [facility] Right: Chest CR BARD : PERIPHERAL VASCULAR 10/12/2021 [id number] / / [id number] Description:right IJ Lens Intraoc 19.0 - [id number] - [id number] Implanted:Qty: 1 on 02/03/2021 by Chris Sexton MD at OR [facility] Right: Eye BAUSCH & LOMB 09/11/2025 [id number] / [id number] / Lens Intraoc 19.0 - [id number] - [id number] Implanted:Qty: 1 on 02/24/2021 by Chris Sexton MD at OR [facility] Left: Eye BAUSCH & LOMB 10/12/2025 [id number] / [id number] / [id number] System Urolift - [id number] Implanted:Qty: 2 on 03/17/2023 by Devyn Paniagua MD at OR [facility] N/A: Urethra [employer] 11/18/2023 [id number] / / [id number] System Urolift - [id number] Implanted:Qty: 3 on 03/17/2023 by Devyn Paniagua MD at OR [facility] N/A: Urethra [employer] 11/03/2023 [id number] / / [id number] documented as of this encounter Visit Diagnoses Diagnosis Decreased appetite- Primary Anorexia Type 2 diabetes mellitus with hemoglobin A1c goal of less than 7.0% (HCC) PAF (paroxysmal atrial fibrillation) (HCC) Atrial fibrillation DEBBY (obstructive sleep apnea) Obstructive sleep apnea (adult) (pediatric) Lambda light chain myeloma (HCC) Multiple myeloma, without mention of having achieved remission Adrenal insufficiency (HCC) Glucocorticoid deficiency documented in this encounter Additional Health Concerns [...] and were consensually agreed upon. Care Teams Academic Registrar Relationship Specialty Start Date End Date Jaime Garcia MD [address] [place] [address] [place] [phone] PCP - General Family Medicine 10/15/20 documented as of this encounter"
--- OUTSIDE RECORDS SUMMARY | 2024-05-13 05:57 | External Medical Summary | Summary of Care ---
Author Name Unknown Organization [facility] Address [address] [place] [address] Phone [phone] Care Team Providers Care Process Description Writer Name Role Phone Jaime Garcia MD Primary Care Provide r Reason for Referral * Evaluate & Treat - Unlimited Visits (Within 30 days (routine)) - Authorized Specialty Diagnoses / Procedures Referred By Contac t Referred To Contact Endocrinology/Metabolism / Endocrinology Diagnoses Alimentary edema (HCC) Jaime Garcia MD [address] [place] [address] [place] [id number] Referral ID Status Reason Start Date Expiration Date Visits Requested Visits Authorized [id number] Authorized Specialty Services Required 05/08/[phone] Question Answer Referral Priority Within 30 days (routine) Where should this appointment be scheduled? [facility] For what condition is the patient being referred? Other Conditions Reason for Visit * Reason Onset Date Comments Referral Requested by Specialist 05/07/2024 Endocrinology Encounter Details Date Type Department Care Team (Late st Contact Info) Description 05/07/2024 Telephone Family Medicine [address] [place] [phone] Jaime Garcia MD [address] [place] [address] [place] [phone] Referral Requested by Specialist (Endocrin... Allergies Active Allergy Reactions Criticality Noted Date Comments Atorvastatin Muscle pain High 03/30/2019 Ezetimibe Muscle pain High 01/25/2020 documented as of this encounter (statuses as of 05/08/2024) Medications Medication Sig Dispensed Refills Start Date End Date Status CPAP every night at bedtime. Active oxygen IN GAS Use 2 L/min(Oxygen) as directed at bedtime. 1 Each 11/11/2020 Active Micropelt Ultra Blue In Vitro Strip (Glucose Blood)Indications: [...] 6 mL 3 06/15/2023 4 Active Pen [place] 32G X 4 MM Use as directed. [...] less than 7.0% ([facility]) take two tablets by mouth [...] in the morning, Reported on 05/01/2024 Nystatin 334372 UNIT/ML Mouth/Throat SuspensionIndicati ons:Multiple myeloma in relapse [...] per infusion reaction protocol 2 mL 04/16/2024 Active documented as of this encounter [...] PM EDT We received a fax from [facility] for an Insurance Referral Request. Dx is E43.0 Fax to documented in this encounter Plan of Treatment Upcoming Encounters Date Type Department Care Team (Late st Contact Info) Description 05/08/2024 9:00 AM EDT Office Visit Family [address] [place] [phone] Jaime Garcia MD [address] [place] [address] [place] [address] 05/10/2024 1:00 PM EDT [facility] Visit [facility] [address] [place] [address] Jessica Browning RN [address] [place] [address] 05/11/2024 11:40 AM EDT Office Visit Sleep Disorders Ctr [facility] [address] [place] [phone] Tona Mondragon DO 132 [facility] [place] [address] 05/11/2024 3:45 PM EDT Home Visit [facility] [address] [place] [address] Beth Berry, BOBBY [address] [place] [address] 05/15/2024 2:00 PM EDT Telemedicine H[facility]ology [facility] Tyree UGARTE [address] [facility] [place] [address] Thierno Patel PA-C [address] [facility] [place] [address] 05/21/2024 2:30 PM EDT Scheduled Telephone [facility], [facility] [address] [facility] [place] [address] Yecenia Back RDN [address] [facility] [place] [address] 06/08/2024 2:30 PM EDT Home Visit [facility], [facility] 132 [facility] [place] [address] Sulma Seth, RN 132 [facility] [place] [address] 06/15/2024 10:00 AM EDT Telemedicine Hematology [facility] [place] [address] [facility] [place] [address] Rosalio Amaral MD [address] [facility] [place] [address] 07/10/2024 9:30 AM EDT Office Visit Cardiology, [facility] 132 [facility] [place] [address] Beth Salter CRNP [address] [facility] [place] [address] 10/30/2024 1:45 PM EST Office Visit Urology, [facility] 132 [facility] [place] [address] Devyn Paniagua MD [address] [place] [address] 01/01/2025 10:20 AM EDT Office Visit Otolaryngology [facility] 132 [facility] [place] [address] Haley Aguero PA-C [address] [place] [address] Scheduled Referrals Name Type Priority Associated Diagnoses [...] Additional history exists CKD PHOS USE SMARTSET 22115 03/09/202502/11, 03/08/2024, 03/07/2024, Additional history exists CKD HGB USE SMARTSET 55626 04/30/202504/30, 04/23/2024, 04/16/2024, Additional history exists DTap/Tdap [...] this encounter Medical Devices Implanted Type Area Drawing Instructor Device Identifier Shelf Expiration Date Model / Serial / Lot Port Power Mri W/8fr Cath - [id number] Implanted:Qty: 1 on 09/26/2020 by Simone Michelle MD at OR [facility] Right: Chest CR BARD : PERIPHERAL VASCULAR 10/12/2021 [id number] / / [id number] Description:right IJ Lens Intraoc 19.0 - [id number] - [id number] Implanted:Qty: 1 on 02/03/2021 by Chris Sexton MD at OR [facility] Right: Eye BAUSCH & LOMB 09/11/2025 [id number] / [id number] / Lens Intraoc 19.0 - [id number] - [id number] Implanted:Qty: 1 on 02/24/2021 by Chris Sexton MD at OR [facility] Left: Eye BAUSCH & LOMB 10/12/2025 [id number] / [id number] System Urolift - [id number] Implanted:Qty: 2 on 03/17/2023 by Devyn Paniagua MD at OR [facility] N/A: Urethra [employer] 11/18/2023 [id number] / / [id number] System Urolift - [id number] Implanted:Qty: 3 on 03/17/2023 by Devyn Paniagua MD at OR [facility] N/A: Urethra [employer] 11/03/2023 [id number] / / [id number] documented as of this encounter Visit Diagnoses [...] and were consensually agreed upon. Care Teams Process Description Writer Relationship Specialty Start Date End Date Jaime Garcia MD [address] [place] [address] [place] [phone] PCP - General Family Medicine 10/15/20 documented as of this encounter
--- OUTSIDE RECORDS SUMMARY | 2024-05-13 05:58 | External Medical Summary | Summary of Care ---
Author Name Unknown Organization [facility] Address [address] [place] [address] Phone [phone] Care Team Providers Care Rope Machine Setter Name Role Phone Jaime Garcia MD Primary Care Provide r Encounter Details Date Type Department Care Team (Late st Contact Info) Description 05/01/2024 Orders Only Family Medicine [address] [place] [phone] Jaime Garcia MD [address] [place] [address] [place] [phone] Allergies Active Allergy Reactions Criticality Noted Date [...] 6 mL 3 06/15/2023 4 Active Pen [place] 32G X 4 MM Use as directed. [...] less than 7.0% ([facility]) take two tablets by mouth in the morning 180 Tablet 1 01/04/2024 Active DULoxetine HCl 20 MG Oral Capsule Delayed Release Particles (Cymbalta) Take 2 Capsules by mouth in the morning. 180 Capsule 1 01/02/2024 Active Magnesium Chloride 64 MG Oral Tablet Delayed Release (Mag64)Indications :Multiple myeloma in relapse ([facility]) Take 1 Tablet by mouth [...] the morning 450 Tablet 03/28/2024 Active Nystatin 095492 UNIT/ML Mouth/Throat SuspensionIndicati ons:Multiple myeloma in relapse [...] Injection Solution (Benadryl)Indicati ons:Multiple myeloma in relapse ([facility]) 25 mg IV push, may repeat x [...] 05/01/2024 4:00 PM EDT Home Visit [facility] [address] [place] [address] Sulma Seth, BOBBY 132 [facility] [place] [address] 05/08/2024 9:00 AM EDT Office Visit Family [address] [phone] Jaime Garcia MD [address] [place] [address] [place] [address] 05/10/2024 1:00 PM EDT Home Visit [facility] [address] [place] [address] Jessica Browning, BOBBY [address] [place] [address] 05/11/2024 11:40 AM EDT Office Visit Sleep Disorders Ctr [facility] [address] [place] [phone] Tona Mondragon, 132 [facility] [place] [address] 05/11/2024 3:45 PM EDT Home Visit [facility] [address] [place] [address] Beth Berry, BOBBY [address] [place] [address] 05/15/2024 2:00 PM EDT Telemedicine [facility]ology [facility] Tyree [address] [place] [address] Thierno Patel PA-C [address] [place] [address] 05/21/2024 2:30 PM EDT Scheduled Telephone [facility], [facility] [address] [place] [address] Yecenia Back RDN [address] [place] [address] 06/20/2024 3:00 PM EDT Telemedicine H[facility]ology [facility] Tyree [address] [place] [address] Rosalio Amaral MD [address] [place] [address] 07/10/2024 9:30 AM EDT Office Visit Cardiology, [facility] 132 [facility] [place] [address] Beth Salter CRNP [address] [place] [address] [place] [address] 10/30/2024 1:45 PM EST Office Visit Urology, [facility] 132 [facility] [place] [address] Devyn Paniagua MD [address] [place] [address] 01/01/2025 10:20 AM EDT Office Visit Otolaryngology [facility] [address] [place] [address] Haley Aguero PA-C [address] [place] [address] Health Maintenance Due Date Last Done Comments [...] 07/25/2023, 03/12, 01/31/2023, Additional history exists GFR 10/24/2024 04/30/2024, 04/12, 04/18/2024, Additional history exists Diabetic Eye Exam 01/18/2025 01/19/2024, , 07/11/2023, Additional history exists Albumin/Creatinine Ratio 01/26/20252 024, 12/30/2023, 09/08/2023, Additional history exists CKD PHOS USE SMARTSET 32309 03/09/202502/11, 03/08/2024, 03/07/2024, Additional history exists CKD HGB USE SMARTSET 49836 04/23/202504/23, 04/16/2024, 04/09/2024, Additional history exists DTaP,Tdap,and Td Vaccines (2 [...] this encounter Medical Devices Implanted Type Area Head Of Music Device Identifier Shelf Expiration Date Model / Serial / Lot Port Power Mri W/8fr Cath - [id number] Implanted:Qty: 1 on 09/26/2020 by Simone Michelle MD at OR [facility] Right: Chest CR BARD : PERIPHERAL VASCULAR 10/12/2021 [id number] / / [id number] Description:right IJ Lens Intraoc 19.0 - [id number] - [id number] Implanted:Qty: 1 on 02/03/2021 by Chris Sexton MD at OR [facility] Right: Eye [employer] 09/11/2025 [id number] / [id number] / Lens Intraoc 19.0 - [id number] - [id number] Implanted:Qty: 1 on 02/24/2021 by Chris Sexton MD at [facility] Left: Eye [employer] LOMB 10/12/2025 [id number] / [id number] / [id number] System Urolift - [id number] Implanted:Qty: 2 on 03/17/2023 by Devyn Paniagua MD at OR [facility] N/A: Urethra [employer] 11/18/2023 [id number] / / [id number] System Urolift - [id number] Implanted:Qty: 3 on 03/17/2023 by Devyn Paniagua MD at OR [facility] N/A: Urethra [employer] 11/03/2023 [id number] / / [id number] documented as of this encounter Procedures Procedure Name Priority Date/Time Associated Diagnosis Comments CHEMISTRY-OUTSIDE Routine 04/30/2024 documented in this encounter Results * (ABNORMAL) CHEMISTRY-OUTSIDE (04/30/2024) Not all results display below - see scan for full detail OUTSIDE LAB (SEE SCANNED REPORT) Comment:SCAN INCLUDES: CMP, CRP, FERRITIN CREATININE-OUTSID E LAB 1.41(A) 0.70 - 1.30 MG/DL OUTSIDE LAB (SEE SCANNED REPORT) EGFR-OUTSIDE LAB 59(A) >=60 ML/MIN OUTSIDE LAB (SEE SCANNED REPORT) POTASSIUM-OUTSIDE LAB 4.0 3.5 - 5.1 MMOL/L OUTSIDE LAB (SEE SCANNED REPORT) GLUCOSE-OUTSIDE LAB 67(A) 70 - 110 MG/DL OUTSIDE LAB (SEE [...] LAB OUTSIDE LAB (SEE SCANNED REPORT) HEMOGLOBIN, [id number] LAB OUTSIDE LAB (SEE SCANNED REPORT) PHOSPHORUS-OUTSID E LAB OUTSIDE LAB (SEE SCANNED REPORT) PTH-OUTSIDE LAB OUTS ALVAREZ LAB (SEE SCANNED REPORT) MICROALBUMIN RATIO-OUTSIDE LAB OUTSIDE LA B (SEE SCANNED REPORT) PROTEIN, UA-OUTSIDE LAB OUTSIDE LAB (SEE SCANNED REPORT) HGB OUTSIDE LA B (SEE SCANNED REPORT) 04/30/2024 Jaime Garcia MD [...] and were consensually agreed upon. Care Teams Rope Machine Setter Relationship Specialty Start Date End Date Jaime Garcia MD [address] [place] [address] [place] [phone] PCP - General Family Medicine 10/15/20 documented as of this encounter
--- OUTSIDE RECORDS SUMMARY | 2024-05-13 05:58 | External Medical Summary | Summary of Care ---
Author Name Unknown Organization [facility] Address [address] [place] [address] Phone [phone] Care Team Providers Care Lockstitch Lining Setter Name Role Phone Jaime Gracia MD Primary Care Provide r Reason for Visit * Reason Onset Date Comments Medication Refill 04/16/2024 Encounter Details Date Type Department Care Team (Late st Contact Info) Description 04/16/2024 Refill [facility]ematology [facility] Tyree UGARTE [address] [facility] [place] [address] Ana Amaya MD [address] [facility] [place] [address] Multiple myeloma in relapse (HCC)* Allergies Active Allergy Reactions Criticality Noted Date Comments Atorvastatin Muscle pain High 03/30/2019 Ezetimibe Muscle pain High 01/25/2020 documented as of this encounter (statuses as of 04/17/2024) Medications Medication Sig Dispensed Refills Start Date End Date Status CPAP every night at bedtime. Active oxygen IN GAS Use 2 L/min(Oxygen) as directed at bedtime. 1 Each 11/11/2020 Active OneTouch Ultra Blue In Vitro Strip (Glucose Blood)Indications: Type 2 diabetes mellitus with hemoglobin A1c goal of less than 7.0% ([facility]) Use as directed daily. Test [...] IN THE MORNING 90 Tablet 3 04/12/2023 Active Cholecalciferol 50 MCG (2000 UT) Oral [...] 6 mL 3 06/15/2023 4 Active Pen [place] 32G X 4 MM Use as directed. [...] disease, without long-term current use of insulin ([facility]) Use as directed to check [...] hemoglobin A1c goal of less than 7.0% ([facility]) take two tablets by mouth in the morning 180 Tablet 1 01/04/2024 Active DULoxetine HCl 20 MG Oral Capsule Delayed Release Particles (Cymbalta) Take 2 Capsules by mouth in the morning. 180 Capsule 1 01/02/2024 Active Magnesium Chloride 64 MG Oral Tablet Delayed Release (Mag64)Indications :Multiple myeloma in relapse ([facility]) Take 1 Tablet by mouth in [...] and 1 Tablet before bedtime. 180 Tablet 03/26/2024 Active Fluconazole 200 MG Oral Tablet [...] the morning 450 Tablet 03/28/2024 Active Nystatin 820663 UNIT/ML Mouth/Throat SuspensionIndicati ons:Multiple myeloma in relapse (HCC) Swish and swallow 5 mL in the morning and 5 mL at noon and 5 mL in the evening and 5 mL before bedtime. 60 mL 04/16/2024 Active Privigen 40 GM/400ML Intravenous Solution (Immune Globulin Human-IVIG 10%)Indications:Mu ltiple myeloma in relapse ([facility]) Administer 15 gm IV x 2 days every month. 300 mL 04/16/2024 Active Acetaminophen 325 MG Oral Tablet (Tylenol)Indicatio ns:Multiple myeloma in relapse (HCC) Take 2 Tablets by mouth as needed (for mild to moderate reaction (infusion reaction protocol)). 04/16/2024 Active diphenhydrAMINE HCl 50 MG/ML Injection Solution (Benadryl)Indicati ons:Multiple myeloma in relapse ([facility]) 25 mg IV push, may repeat x 1 dose, then 50 mg every 2 - 3 hours as needed for anaphylaxis 2 mL 04/16/2024 Active Sodium Chloride 0.9 % Intravenous SolutionIndication s:Multiple myeloma in relapse (HCC) TO BE ADMINISTERED IN THE EVENT OF ANAPHYLACTIC REACTION 1000 mL 04/16/2024 Active dexAMETHasone Sodium Phosphate 4 MG/ML Injection Solution (Decadron)Indicati ons:Multiple myeloma in relapse ([facility]) Inject 8 mg intravenously as needed for [...] as of this encounter (statuses as of 04/17/2024) Active Problems Problem Noted Date Diagnosed Date [...] myeloma without remission 06/14/2014 Overview: Dr Rodriges/ [facility] DIRECTIVE INFORMATION 10/13/2006 Overview: No, Advance Directive brochure offered , patient declined. Degeneration of lumbosacral intervertebral disc 02/19/2005 documented as of this encounter (statuses as of 04/17/2024) Resolved Problems Problem Noted Date Diagnosed Date [...] as of this encounter (statuses as of 04/17/2024) Immunizations Name Administration Dates Next Due COVID-19, [...] encounter Miscellaneous Notes * Telephone Encounter - Mirna Zacarias CPhT - 04/17/2024 2:59 PM EDT Patients insurance would like to inform the office that Privigen 40 GM/400ML Intravenous Solution (Immune Globulin Human-IVIG 10%) is approved until 08/15/24. Patient and pharmacy made aware by [facility] fax. Information will be faxed to the office. Thank you, Sherita Zacarias CPhT News Production Supervisor II [facility] ([facility]) [address] [place] [address], [address] [phone] * Telephone Encounter - Ana Amaya MD - 04/16/2024 6:30 PM EDTSigned Prescriptions: Disp Refills Privigen 40 GM/400ML Intravenous Solution *300 mL 11 Sig: Administer 15 gm IV x 2 days every month. Authorizing Provider: ANA AMAYA Acetaminophen 325 MG Oral Tablet (Tylenol) Sig: Take 2 Tablets by mouth as needed (for mild to moderate reaction (infusion reaction protocol)). Authorizing Provider: ANA AMAYA dip henhydrAMINE HCl 50 MG/ML Injection Sanjana*2 mL 11 Si mg IV push, may repeat x 1 dose, then 50 mg every 2 - 3 hours as needed for anaphylaxis Authorizing Provider: ANA AMAYA Sodium Chloride 0.9 % Intravenous Solution 1000 mL11 Sig: TO BE ADMINISTERED IN THE EVENT OF ANAPHYLACTIC REACTION Authorizing Provider: ANA AMAYA dexAMETHasone Sodium Phosphate 4 MG/ML Inj*2 mL 11 Sig: Inject 8 mg intravenously as needed for Anaphylaxis (severe allergic reaction). Authorizing Provider: ANA AMAYA diphenhydrAMINE HCl 50 MG/ML Injection Sanjana*1 mL 11 Sig: Inject 25 mg intravenously as needed (Mild to moderate infusion reaction (infusion reaction protocol)). Authorizing Provider: ANA AMAYA EPINEPHrine (Anaphylaxis) 1 MG/ML Injectio*2 mL 11 Sig: Inject 0.3 mL into a large muscle as needed for Anaphylaxis (severe allergic reaction). May repeat every 15 min as needed per infusion reaction protocol Authorizing Provider: ANA AMAYA * Telephone Encounter - Gita George RPh - 04/16/2024 5:10 PM EDT Please review and sign pended IVIG Rx and infusion reaction protocol for home infusion. Please indicate if any premedications are needed, Tylenol 650mg PO and Diphenhydramine 25mg PO received in the clinic. Gita George, PharmD. [facility] [phone] documented in this encounter Plan of Treatment Upcoming Encounters Date Type Department Care Team (Late st Contact Info) Description 04/18/2024 10:00 AM EDT Home Visit [place] [facility] [place], [facility] 132 [facility] [place] [address] Sulma Seth, BOBBY 132 [facility] [place] [address] 04/19/2024 9:30 AM EDT Office Visit Cardiology [address] [place] [address] Tim Ruiz PA-C [address] [place] [address] 05/01/2024 2:30 PM EDT [facility], [facility] [address] [place] [address] Sulma Seth, BOBBY [address] [place] [address] 05/11/2024 11:40 AM EDT Office Visit Sleep Disorders Ctr [facility] [address] [place] [phone] Tona Mondragon DO [address] [place] [address] 05/15/2024 2:00 PM EDT [facility] [address] [place] [address] Thierno Patel PA-C [address] [place] [address] 05/21/2024 2:30 PM EDT Scheduled Telephone [facility], [facility] [address] [place] [address] [address]enia Back RDN [address] [place] [address] 06/20/2024 3:00 PM EDT Telemedicine H[facility]ology [facility] Tyree Jordan [address] [place] [address] Ana Amaya MD [address] [facility] [place] [address] 07/10/2024 9:30 AM EDT Office Visit Cardiology, [facility] 132 [facility] [place] [address] Beth Salter CRNP [address] [facility] [place] [address] 10/30/2024 1:45 PM EST Office Visit Urology, [facility] 132 [facility] [place] [address] Devyn Paniagua MD 27 [facility] [place] [address] 01/01/2025 10:20 AM EDT Office Visit Otol[facility]ology [facility] 132 [facility] [place] [address] Haley Aguero PA-C 132 [facility] [place] [address] Health Maintenance Due Date Last Done Comments [...] 07/25/2023, 03/12, 01/31/2023, Additional history exists GFR 10/17/2024 04/16/2024, 03/13, 04/02/2024, Additional history exists Diabetic Eye Exam 01/18/2025 01/19/2024, , 07/11/2023, Additional history exists Albumin/Creatinine Ratio 01/26/2025 024, 12/30/2023, 09/08/2023, Additional history exists CKD PHOS USE SMARTSET 58532 03/09/202502/11, 03/08/2024, 03/07/2024, Additional history exists CKD HGB USE SMARTSET 67321 04/16/202504/16, 04/09/2024, 04/02/2024, Additional history exists DTaP,Tdap,and Td Vaccines (2 [...] this encounter Medical Devices Implanted Type Area Pharmacy Associate Device Identifier Shelf Expiration Date Model / Serial / Lot Port Power Mri W/8fr Cath - [id number] Implanted:Qty: 1 on 09/26/2020 by Simone Michelle MD at OR [facility] Right: Chest CR BARD : PERIPHERAL VASCULAR 10/12/2021 [id number] / / [id number] Description:right IJ Lens Intraoc 19.0 - [id number] - [id number] Implanted:Qty: 1 on 02/03/2021 by Chris Sexton MD at OR [facility] Right: Eye [employer] 09/11/2025 [id number] / [id number] / Lens Intraoc 19.0 - [id number] - [id number] Implanted:Qty: 1 on 02/24/2021 by Chris Sexton MD at OR [facility] Left: Eye [employer]OM[employer] 10/12/2025 [id number] / [id number] System Urolift - [id number] Implanted:Qty: 2 on 03/17/2023 by Devyn Paniagua MD at OR [facility] N/A: Urethra [employer] 11/18/2023 [id number] / / [id number] System Urolift - [id number] Implanted:Qty: 3 on 03/17/2023 by Devyn Paniagua MD at OR [facility] N/A: Urethra [employer] 11/03/2023 [id number] / / [id number] documented as of this encounter Visit Diagnoses [...] were consensually agreed upon. Care Teams Lockstitch Lining Setter Relationship Specialty Start Date End Date Jaime Garcia MD [address] [place] [address] [place] [phone] PCP - General Family Medicine 10/15/20 documented as of this encounter
--- OUTSIDE RECORDS SUMMARY | 2024-05-13 05:58 | External Medical Summary | Summary of Care ---
Author Name Unknown Organization [facility] Address [address] [place] [address] Phone [phone] Care Team Providers Care Motorcycle Tester Name Role Phone Jaime Garcia MD Primary Care Provide r Encounter Details Date Type Department Care Team (Late st Contact Info) Description 04/16/2024 2:30 PM EDT Telemedicine [facility] Tyree UGARTE [address] [facility] [place] [address] Rosalio Amaral MD [address] [facility] [place] [address] [place] amyloidosis (HCC)*; Multiple myeloma in relapse ([facility]) Allergies Active Allergy Reactions Criticality Noted Date Comments Atorvastatin Muscle pain High 03/30/2019 Ezetimibe Muscle pain High 01/25/2020 documented as of this encounter (statuses as of 04/16/2024) Medications Medication Sig Dispensed Refills Start Date [...] mL 3 06/15/2023 06/14/20 24 Active Pen [place] 32G X 4 MM Use as directed. [...] current use of insulin ([facility]) Use as directed to check blood [...] 7.0% ([facility]) take two tablets by mouth in the morning 180 Tablet 1 01/04/2024 Active DULoxetine HCl 20 MG Oral Capsule Delayed Release Particles (Cymbalta) Take 2 Capsules by mouth in the morning. 180 Capsule 1 01/02/2024 Active Magnesium Chloride 64 MG Oral Tablet Delayed Release (Mag64)Indication s:Multiple myeloma in relapse ([facility]) Take 1 Tablet by mouth in [...] the morning 450 Tablet 1 03/28/2024 Active Nystatin 769137 UNIT/ML Mouth/Throat SuspensionIndicat ions:Multiple myeloma in relapse (HCC) Swish and swallow 5 mL in the morning and 5 mL at noon and 5 mL in the evening and 5 mL before bedtime. 60 mL 1 04/16/2024 Active Nystatin 111174 UNIT/ML Mouth/Throat SuspensionIndicat ions:Multiple myeloma in relapse (HCC) Swish and swallow 5 mL in the morning and 5 mL at noon and 5 mL in the evening and 5 mL before bedtime. 60 mL 1 01/02/2024 04/16/20 24 Discontinu ed(Refill) documented as of this encounter (statuses as of 04/16/2024) Active Problems Problem Noted Date Diagnosed Date [...] as of this encounter (statuses as of 04/16/2024) Resolved Problems Problem Noted Date Diagnosed Date [...] as of this encounter (statuses as of 04/16/2024) Immunizations Name Administration Dates Next Due COVID-19, [...] Progress Notes * Rosalio Amaral MD - 04/16/2024 12:57 PM EDT CLINIC NOTES JERARDO WALTON MR #[id number] : 1970 This was a telephone visit Informed consent obtained 04/16/2024 PATIENT REFERRED BY: Jaime Garcia MD. Also [...] immunoglobulin replacement. He stayed up late playing [employer] on Tuesday nights. He had GI issues, [...] neuropathy. INTERIM: The patient was last reviewed 01/11/2024 . he had been off therapy for a [...] was just started back in October 2023. Previously had some diarrhea again previously recurrent Salmonella x2- not regular He has not appointment at [facility] tomorrow for pre testing for cart T evaluation - he was due on 02/06-will hold treatment 2 weeks before He had not been doing Hizentra-due to cost Latest Reference Range & Units 10/17/20 07:43 [...] 145.26 (H) (H): Data is abnormally high Patient was admitted to [facility] February 12 was there for 10 days, was discharged locally and subsequently suffered a syncopal episode. He was felt to possibly have adrenal insufficiency placed on hydrocortisone He generally feels poorly Food taste funny to him He was not been using any nystatin He does have a follow up appointment with Dr. Boland at [facility] Then 2 days MEDICAL ALLERGIES: Atorvastatin, Zetia. MEDICATIONS: Current Outpatient Medications Medication Sig Dispense Refill CPAP every night at bedtime. (Patient not taking: Reported on 04/06/2024) oxygen IN GAS Use 2 L/min(Oxygen) as [...] 6 hours as needed for Pain, Severe. (Patient not taking: Reported on 04/06/2024) 10 Tablet 0 Finasteride 5 MG Oral Tablet (Proscar) TAKE 1 TABLET BY MOUTH IN THE MORNING 90 Tablet 3 Cholecalciferol 50 MCG (2000 UT) Oral Tablet Take 50 mcg by mouth in the morning. (Patient not taking: Reported on 04/06/2024) 30 Tablet 5 Repatha SureClick 140 MG/ML Subcutaneous Solution Auto-injector (evolocumab) INJECT 140MG (1 INJECTION) UNDER THE SKIN EVERY 14 DAYS. REMOVE FROM REFRIGERATOR 30 MINUTES PRIOR TO INJECTION 6 mL 3 Pen [place] 32G X 4 MM Use as directed. Inject Lantus once daily. 50 Each 3 Icosapent Ethyl 1 GM Oral Capsule (Vascepa) Take 2 Capsules by mouth 2 times a day with morning andevening meals. Swallow capsules whole, do not open or break. (Patient not taking: Reported on 04/06/2024) 360 Capsule 3 Pantoprazole Sodium 20 MG Oral Tablet Delayed Release (Protonix) TAKE ONE TABLET BY MOUTH EVERY DAYIN THE MORNING 90 Tablet 2 Dexcom G7 Sensor Use as directed to check blood sugars daily. Change every 10 days 9 Each 3 Ondansetron HCl 8 MG Oral Tablet (Zofran) Take 1 Tablet by mouth every 8 hours as needed for Nausea. (Patient not taking: Reported on 04/06/2024) 30 Tablet 3 NSS 0.9 % SOLN 100 mL with cefTRIAXone 2 GM SOLR 2 g Administer 2 g intravenously daily. (Patient not taking: Reported on 04/06/2024) Albuterol Sulfate HFA 108 (90 Base) MCG/ACT [...] mouth in the morning. 180 Capsule 1 Nystatin 473735 UNIT/ML Mouth/Throat Suspension Swish and swallow 5 mL in the morning and 5 mL at noon and 5 mL in the evening and 5 mL before bedtime. (Patient not taking: Reported on 04/06/2024) 60 mL 1 Magnesium Chloride 64 MG Oral Tablet Delayed Release (Mag64) Take 1 Tablet by mouth in the morning and 1 Tablet before bedtime. (Patient not taking: Reported on 04/06/2024) 180 Tablet 3 Prochlorperazine Maleate 10 MG Oral [...] mouth in the morning 450 Tablet 1 No current facility-administered medications for [...] mentioned possible Tecvayli but did not mention CAR-T.-status post cart therapy in February of 2024 with dramatic response with kappa and lambda basically going to 0 Status post recent salmonella sepsis hospitalized at the [facility] Likely autonomic dysfunction, manifested by orthostatic hypotension, dysphagia, gastric emptying PLAN: Follow up at [facility] Will put in for monthly labs Will schedule a return Monthly returns for now 9 minute 30 minute visit This was a telephone visit. 13 minutes of medical discussion Rosalio Amaral MD documented in this encounter Plan of Treatment Upcoming Encounters Date Type Department Care Team (Late st Contact Info) Description 04/18/2024 10:00 AM EDT [facility] [address] [place] [address] Sulma Seth, RN [address] [place] [address] 04/19/2024 9:30 AM EDT Office Visit Cardiology [address] [place] [address] Tim Ruiz PA-C [address] [place] [address] 05/01/2024 2:30 PM EDT [facility] [address] [place] [address] Sulma Seth, BOBBY [address] [place] [address] 05/11/2024 11:40 AM EDT Office Visit Sleep Disorders Ctr [facility] [address] [place] [phone] Tona Mondragon DO [address] [place] [address] 05/15/2024 2:00 PM EDT Telemedicine [facility] Tyree UGARTE [address] [place] [address] Thierno Patel PA-C [address] [place] [address] 05/21/2024 2:30 PM EDT Scheduled Telephone [facility] [address] [place] [address] Yecenia Back RDN [address] [place] [address] 06/20/2024 3:00 PM EDT Telemedicine [facility] [place] Tyree [address] [place] [address] Rosalio Amaral MD [address] [facility] [place] [address] 07/10/2024 9:30 AM EDT Office Visit Cardiology, [facility] [address] [facility] [place] [address] Beth Salter CRNP [address] [facility] [place] [address] 10/30/2024 1:45 PM EST Office Visit Urology, [facility] [address] [facility] [place] [address] Devyn Paniagua MD [address] [place] [address] 01/01/2025 10:20 AM EDT Office Visit Otolaryngology [facility] [address] [facility] [place] [address] Haley Aguero PA-C 132 [facility] [place] [address] Health Maintenance Due Date Last Done Comments [...] 07/25/2023, 03/12, 01/31/2023, Additional history exists GFR 10/10/2024 04/09/2024, 03/13, 03/26/2024, Additional history exists Diabetic Eye Exam 01/18/2025 01/19/2024, , 07/11/2023, Additional history exists Albumin/Creatinine Ratio 01/26/2025 024, 12/30/2023, 09/08/2023, Additional history exists CKD PHOS USE SMARTSET 34992 03/09/202502/11, 03/08/2024, 03/07/2024, Additional history exists CKD HGB USE SMARTSET 46274 04/09/202504/09, 04/02/2024, 03/26/2024, Additional history exists DTaP,Tdap,and Td Vaccines (2 [...] encounter Medical Devices Implanted Type Area Manager Body Device Identifier Shelf Expiration Date Model / Serial / Lot Port Power Mri W/8fr Cath - [id number] Implanted:Qty: 1 on 09/26/2020 by Simone Michelle MD at OR [facility] Right: Chest CR BARD : PERIPHERAL VASCULAR 10/12/2021 [id number] / / [id number] Description:right IJ Lens Intraoc 19.0 - [id number] - [id number] Implanted:Qty: 1 on 02/03/2021 by Chris Sexton MD at OR [facility] Right: Eye [employer]USCH [employer] LOMB 09/11/2025 [id number] / [id number] / Lens Intraoc 19.0 - [id number] - [id number] Implanted:Qty: 1 on 02/24/2021 by Chris Sexton MD at OR [facility] Left: Eye BAUSCH & LOMB 10/12/2025 [id number] / [id number] / [id number] System Urolift - [id number] Implanted:Qty: 2 on 03/17/2023 by Devyn Paniagua MD at OR [facility] N/A: Urethra [employer] 11/18/2023 [id number] / / [id number] System Urolift - [id number] Implanted:Qty: 3 on 03/17/2023 by Devyn Paniagua MD at OR [facility] N/A: Urethra [employer] 11/03/2023 [id number] / / [id number] documented as of this encounter Visit Diagnoses Diagnosis AL amyloidosis (HCC)- Primary Other amyloidosis Multiple myeloma in relapse (HCC) [...] and were consensually agreed upon. Care Teams Motorcycle Tester Relationship Specialty Start Date End Date Jaime Garcia MD [address] [place] [address] [place] [phone] PCP - General Family Medicine 10/15/20 documented as of this encounter
--- OUTSIDE RECORDS SUMMARY | 2024-05-13 05:58 | External Medical Summary | Summary of Care ---
Author Name Unknown Organization [facility] Address [address] [place] [address] Phone [phone] Care Team Providers Care Inseminator Name Role Phone Jaime Garcia MD Primary Care Provide r Encounter Details Date Type Department Care Team (Late st Contact Info) Description 04/23/2024 Result Scan Unspecified Department Jaime Garcia MD [address] [place] [address] [place] [address] <No scans attached> Allergies Active Allergy Reactions Criticality Noted Date Comments Atorvastatin Muscle pain High 03/30/2019 Ezetimibe Muscle pain High 01/25/2020 documented as of this encounter (statuses as of 04/24/2024) Medications Medication Sig Dispensed Refills Start Date [...] 6 mL 3 06/15/2023 4 Active Pen [place] 32G X 4 MM Use as directed. [...] than 7.0% ([facility]) take two tablets by mouth in the morning 180 Tablet 1 01/04/2024 Active DULoxetine HCl 20 MG Oral Capsule Delayed Release Particles (Cymbalta) Take 2 Capsules by mouth in the morning. 180 Capsule 1 01/02/2024 Active Magnesium Chloride 64 MG Oral Tablet Delayed Release (Mag64)Indications :Multiple myeloma in relapse [facility] the morning 450 Tablet 03/28/2024 Active Nystatin 740403 UNIT/ML Mouth/Throat SuspensionIndicati ons:Multiple myeloma in relapse [...] Injection Solution (Benadryl)Indicati ons:Multiple myeloma in relapse ([facility]) 25 mg IV push, may repeat [...] as of this encounter (statuses as of 04/24/2024) Active Problems Problem Noted Date Diagnosed Date [...] as of this encounter (statuses as of 04/24/2024) Resolved Problems Problem Noted Date Diagnosed Date [...] as of this encounter (statuses as of 04/24/2024) Immunizations Name Administration Dates Next Due COVID-19, [...] Team (Late st Contact Info) Description 05/01/2024 2:30 PM EDT Home Visit [facility] [address] [facility] [place] [address] Sulma Seth RN 132 [facility] [address] 05/10/2024 1:00 PM EDT [facility] [address] [place] [address] Jessica Browning RN [address] [place] [address] 05/11/2024 11:40 AM EDT Office Visit Sleep Disorders Ctr [facility] [address] [facility] [place] [phone] Tona Mondragon DO [address] [place] [address] 05/11/2024 3:45 PM EDT Home Visit [facility] [address] [place] [address] Beth Berry, BOBBY [address] [place] [address] 05/15/2024 2:00 PM EDT [facility]med[facility] [address] [place] [address] Thierno Patel PA-C [address] [place] [address] 05/21/2024 2:30 PM EDT Scheduled Telephone [facility] [address] [place] [address] [address] [place] [address] 06/20/2024 3:00 PM EDT Telemedicine [facility] [address] [place] [address] Rosalio Amaral MD [address] [place] [address] 07/10/2024 9:30 AM EDT Office Visit Cardiology, [facility] 132 [facility] [place] [address] Beth Salter CRNP [address] [place] [address] [place] [address] 10/30/2024 1:45 PM EST Office Visit Urology, [facility] 132 [facility] [place] [address] Devyn Paniagua MD [address] [place] [address] [place] [address] 01/01/2025 10:20 AM EDT Office Visit Otolaryngology [facility] 132 [facility] [place] [address] Haley Aguero PA-C [address] [place] [address] Health Maintenance Due Date Last Done Comments [...] 07/25/2023, 03/12, 01/31/2023, Additional history exists GFR 10/19/2024 04/23/2024, 08/0 03/2024, 04/18/2024, Additional history exists Diabetic Eye Exam 01/18/2025 01/19/2024, , 07/11/2023, Additional history exists Albumin/Creatinine Ratio 01/26/2025 024, 12/30/2023, 09/08/2023, Additional history exists CKD PHOS USE SMARTSET 33234 03/09/202502/11, 03/08/2024, 03/07/2024, Additional history exists CKD HGB USE SMARTSET 97846 04/16/202504/23, 04/16/2024, 04/09/2024, Additional history exists DTaP,Tdap,and Td [...] this encounter Medical Devices Implanted Type Area Crew Leader/Control Room Operator Device Identifier Shelf Expiration Date Model / Serial / Lot Port Power Mri W/8fr Cath - [id number] Implanted:Qty: 1 on 09/26/2020 by Simone Michelle MD at OR [facility] Right: Chest CR BARD : PERIPHERAL VASCULAR 10/12/2021 [id number] / / [id number] Description:right IJ Lens Intraoc 19.0 - [id number] - [id number] Implanted:Qty: 1 on 02/03/2021 by Chris Sexton MD at OR [facility] Right: Eye BAUSCH & LOMB 09/11/2025 [id number] / [id number] / Lens Intraoc 19.0 - [id number] - [id number] Implanted:Qty: 1 on 02/24/2021 by Chris Sexton MD at OR [facility] Left: Eye BAUSCH & LOMB 10/12/2025 [id number] / [id number] / [id number] System Urolift - [id number] Implanted:Qty: 2 on 03/17/2023 by Devyn Paniagua MD at OR [facility] N/A: Urethra [employer] 11/18/2023 [id number] / / [id number] System Urolift - [id number] Implanted:Qty: 3 on 03/17/2023 by Devyn Paniagua MD at OR [facility] N/A: Urethra [employer] 11/03/2023 [id number] / / [id number] documented as of this encounter Procedures Procedure Name Priority Date/Time Associated Diagnosis Comments OUTSIDE LAB RESULTS 04/23/2024 documented in this encounter Results * OUTSIDE LAB RESULTS (04/23/2024) 04/23/2024 Jaime Garcia MD LABORATORY documented in this encounter Additional Health Concerns [...] and were consensually agreed upon. Care Teams Inseminator Relationship Specialty Start Date End Date Jaime Garcia MD [address] [place] [address] [place] [phone] PCP - General Family Medicine 10/15/20 documented as of this encounter
--- OUTSIDE RECORDS SUMMARY | 2024-05-13 05:58 | External Medical Summary | Summary of Care ---
Author Name Unknown Organization [facility] Address [address] [place] [address] Phone [phone] Care Team Providers Care Commercial Account Officer Name Role Phone Jaime Garcia MD Primary Care Provide r Reason for Visit * Reason Onset Date Comments Medication Refill 04/16/2024 Encounter Details Date Type Department Care Team (Late st Contact Info) Description 04/16/2024 Refill [facility] Tyree UGARTE [address] [facility] [place] [address] Ana Amaya MD [address] [facility] [place] [address] Multiple myeloma in relapse (HCC)* Allergies Active [...] 6 mL 3 06/15/2023 4 Active Pen [place] 32G X 4 MM Use as directed. [...] disease, without long-term current use of insulin ([facility]) Use as directed to check [...] of less than 7.0% ([facility]) take two tablets by mouth in the morning 180 Tablet 1 01/04/2024 Active DULoxetine HCl 20 MG Oral Capsule Delayed Release Particles (Cymbalta) Take 2 Capsules by mouth in the morning. 180 Capsule 1 01/02/2024 Active Magnesium Chloride 64 MG Oral Tablet Delayed Release (Mag64)Indications :Multiple myeloma in relapse ([facility]) Take 1 Tablet by mouth [...] the morning 450 Tablet 03/28/2024 Active Nystatin 554633 UNIT/ML Mouth/Throat SuspensionIndicati ons:Multiple myeloma in relapse (HCC) Swish and swallow 5 mL in the morning and 5 mL at noon and 5 mL in the evening and 5 mL before bedtime. 60 mL 04/16/2024 Active Privigen 40 GM/400ML Intravenous Solution (Immune Globulin Human-IVIG 10%)Indications:Mu ltiple myeloma in relapse ([facility]) Administer 15 gm IV x 2 days every month. 300 mL 04/16/2024 Active Acetaminophen 325 MG Oral Tablet (Tylenol)Indicatio ns:Multiple myeloma in relapse (HCC) Take 2 Tablets by mouth as needed (for mild to moderate reaction (infusion reaction protocol)). 04/16/2024 Active diphenhydrAMINE HCl 50 MG/ML Injection Solution (Benadryl)Indicati ons:Multiple myeloma in relapse ([facility]) 25 mg IV push, may repeat x 1 dose, then 50 mg every 2 - 3 hours as needed for anaphylaxis 2 mL 04/16/2024 Active Sodium Chloride 0.9 % Intravenous SolutionIndication s:Multiple myeloma in relapse (HCC) TO BE ADMINISTERED IN THE EVENT OF ANAPHYLACTIC REACTION 1000 mL 04/16/2024 Active dexAMETHasone Sodium Phosphate 4 MG/ML Injection Solution (Decadron)Indicati ons:Multiple myeloma in relapse ([facility]) Inject 8 mg intravenously as needed for [...] AMAYA * Telephone Encounter - Gita George [facility] - 04/16/2024 5:10 PM EDT Please review and sign pended IVIG Rx and infusion reaction protocol for home infusion. Please indicate if any premedications are needed, Tylenol 650mg PO and Diphenhydramine 25mg PO received in the clinic. Gita George, PharmD. [email or web address] [phone] documented in this encounter Plan of Treatment Upcoming Encounters Date Type Department Care Team (Late st Contact Info) Description 04/18/2024 10:00 AM EDT [facility] [place] [address] Sulma Seth, BOBBY [address] [place] [address] 04/19/2024 9:30 AM EDT Office Visit Cardiology [address] [place] [address] Tim Ruiz PA-C [address] [place] [address] 05/01/2024 2:30 PM EDT [facility] Visit [facility] [address] [place] [address] Sulma Seth, BOBBY 132 [facility] [place] [address] 05/11/2024 11:40 AM EDT Office Visit [facility] Disorders Ctr [facility] 132 [facility] [place] [phone] Tona Mondragon DO 132 [facility] [place] [address] 05/15/2024 2:00 PM EDT Telemedicine H[facility]ology [facility] [employer] [address] [place] [address] Thierno Patel PA-C [address] [place] [address] 05/21/2024 2:30 PM EDT Scheduled Telephone [facility] [address] [place] [address] Yecenia Back RDN [address] [place] [address] 06/20/2024 3:00 PM EDT [facility]medicine [facility] [address] [place] [address] Ana Amaya MD [address] [place] [address] 07/10/2024 9:30 AM EDT Office Visit Cardiology, [facility] 132 [facility] [place] [address] Beth Salter CRNP [address] [place] [address] [place] [address] 10/30/2024 1:45 PM EST Office Visit Urology, [facility] [address] [place] [address] Devyn Paniagua MD [address] [place] [address] 01/01/2025 10:20 AM EDT Office Visit Otolaryngology [facility] [address] [place] [address] Haley Aguero PA-C [address] [place] [address] Health Maintenance Due Date Last Done Comments [...] Additional history exists CKD PHOS USE SMARTSET 20683 03/09/202502/11, 03/08/2024, 03/07/2024, Additional history exists CKD HGB USE SMARTSET 84932 04/09/202504/09, 04/02/2024, 03/26/2024, Additional history exists DTaP,Tdap,and [...] this encounter Medical Devices Implanted Type Area Electric Organ Inspector And Repairer Device Identifier Shelf Expiration Date Model / Serial / Lot Port Power Mri W/8fr Cath - [id number] Implanted:Qty: 1 on 09/26/2020 by Simone Michelle MD at OR [facility] Right: Chest CR BARD : PERIPHERAL VASCULAR 10/12/2021 [id number] / / [id number] Description:right IJ Lens Intraoc 19.0 - [id number] - [id number] Implanted:Qty: 1 on 02/03/2021 by Chris Sexton MD at OR [facility] Right: Eye BAUSCH [employer] LOMB 09/11/2025 [id number] / [id number] / Lens Intraoc 19.0 - [id number] - [id number] Implanted:Qty: 1 on 02/24/2021 by Chris Sexton MD at OR [facility] Left: Eye BAUSCH & LOMB 10/12/2025 [id number] / [id number] System Urolift - [id number] Implanted:Qty: 2 on 03/17/2023 by Devyn Paniagua MD at OR [facility] N/A: Urethra [employer] 11/18/2023 [id number] / / [id number] System Urolift - [id number] Implanted:Qty: 3 on 03/17/2023 by Devyn Paniagua MD at OR [facility] N/A: Urethra [employer] 11/03/2023 [id number] / / [id number] documented as of this encounter Visit Diagnoses [...] were consensually agreed upon. Care Teams Commercial Account Officer Relationship Specialty Start Date End Date Jaime Garcia MD [address] [place] [address] [place] [address] PCP - General Family Medicine 10/15/20 documented as of this encounter
--- OUTSIDE RECORDS SUMMARY | 2024-05-13 05:58 | External Medical Summary | Summary of Care ---
Author Name Unknown Organization [facility] Address [address] [place] [address] Phone [phone] Care Team Providers Care Teacher Tutor Name Role Phone Jaime Garcia MD Primary Care Provide r Encounter Details Date Type Department Care Team (Late st Contact Info) Description 04/23/2024 Result Scan Unspecified Department <No scans attached> Allergies Active Allergy Reactions [...] of less than 7.0% ([facility]) Use as directed daily. Test once [...] 6 mL 3 06/15/2023 4 Active Pen [place] 32G X 4 MM Use as directed. [...] of less than 7.0% ([facility]) take two tablets by mouth in the morning 180 Tablet 1 01/04/2024 Active DULoxetine HCl 20 MG Oral Capsule Delayed Release Particles (Cymbalta) Take 2 Capsules by mouth in the morning. 180 Capsule 1 01/02/2024 Active Magnesium Chloride 64 MG Oral Tablet Delayed Release (Mag64)Indications :Multiple myeloma in relapse ([facility]) Take 1 Tablet by mouth in [...] morning 450 Tablet 1 03/28/2024 Active Nystatin 434670 UNIT/ML Mouth/Throat SuspensionIndicati ons:Multiple myeloma in relapse [...] Injection Solution (Benadryl)Indicati ons:Multiple myeloma in relapse ([facility]) 25 mg IV push, may repeat x 1 dose, then 50 mg every 2 - 3 hours as needed for anaphylaxis 2 mL 04/16/2024 Active Sodium Chloride 0.9 % Intravenous SolutionIndication s:Multiple myeloma in relapse ([facility]) TO BE ADMINISTERED IN THE EVENT OF ANAPHYLACTIC REACTION 1000 mL 04/16/2024 Active dexAMETHasone Sodium Phosphate 4 MG/ML Injection Solution (Decadron)Indicati ons:Multiple myeloma in relapse ([facility]) Inject 8 mg intravenously as needed [...] myeloma without remission 06/14/2014 Overview: Dr Rodriges/ [facility] ADVANCE DIRECTIVE INFORMATION 10/13/2006 Overview: [...] Description 05/01/2024 2:30 PM EDT [facility] 132 [facility] [place] [address] Sulma Seth RN 132 [place] [address] 05/10/2024 1:00 PM EDT [facility] [address] [place] [address] Jessica Browning RN [address] [place] [address] 05/11/2024 11:40 AM EDT Office Visit Sleep Disorders Ctr [facility] 132 [facility] [place] [address] Tona Mondragon, 132 [facility] [place] [address] 05/11/2024 3:45 PM EDT Home Visit [facility] [address] [place] [address] Beth Berry, BOBBY [address] [place] [address] 05/15/2024 2:00 PM EDT Telemedicine [facility] [address] [place] [address] Thierno Patel PA-C [address] [place] [address] 05/21/2024 2:30 PM EDT Scheduled Telephone [facility], [facility] [address] [place] [address] Yecenia Back, RDN [address] [place] [address] 06/20/2024 3:00 PM EDT Telemedicine [facility] [address] [place] [address] Rosalio [facility]aral MD [address] [facility] [address] 07/10/2024 9:30 AM EDT Office Visit Cardiology, [facility] 132 [facility] [place] [address] Beth Salter CRNP 400 [facility] [place] [address] 10/30/2024 1:45 PM EST Office Visit Urology, [facility] 132 [facility] [place] [address] Devyn Paniagua MD [address] [place] [address] 01/01/2025 10:20 AM EDT Office Visit Otolaryngology [facility] 132 [facility] [place] [address] Haley Aguero PA-C 132 [facility] [place] [address] Health Maintenance Due Date Last Done Comments [...] Additional history exists CKD PHOS USE SMARTSET 85108 03/09/202502/11, 03/08/2024, 03/07/2024, Additional history exists CKD HGB USE SMARTSET 18841 04/16/202504/23, 04/16/2024, 04/09/2024, Additional history exists DTaP,Tdap,and [...] encounter Medical Devices Implanted Type Area Automatic Equipment Technician Device Identifier Shelf Expiration Date Model / Serial / Lot Port Power Mri W/8fr Cath - [id number] Implanted:Qty: 1 on 09/26/2020 by Simone Michelle MD at OR [facility] Right: Chest CR BARD : PERIPHERAL VASCULAR 10/12/2021 [id number] / / [id number] Description:right IJ Lens Intraoc 19.0 - [id number] - [id number] Implanted:Qty: 1 on 02/03/2021 by Chris Sexton MD at OR [facility] Right: Eye BAUSCH [employer] LOMB 09/11/2025 [id number] / [id number] / Lens Intraoc 19.0 - [id number] - [id number] Implanted:Qty: 1 on 02/24/2021 by Chris Sexton MD at OR [facility] Left: Eye BAUSCH & LOMB 10/12/2025 [id number] / [id number] System Urolift - [id number] Implanted:Qty: 2 on 03/17/2023 by Devyn Paniagua MD at OR [facility] N/A: Urethra [employer] 11/18/2023 UY247-2 / / [id number] System Urolift - [id number] Implanted:Qty: 3 on 03/17/2023 by Devyn Paniagua MD at OR [facility] N/A: Urethra [employer] 11/03/2023 VW565-4 / / [id number] documented as of this encounter Procedures Procedure Name Priority Date/Time Associated Diagnosis Comments OUTSIDE LAB RESULTS 04/23/2024 documented in this encounter Results * OUTSIDE LAB RESULTS (04/23/2024) 04/23/2024 No Physician Data Unknown LABORATORY documented in this encounter Additional Health [...] and were consensually agreed upon. Care Teams Teacher Tutor Relationship Specialty Start Date End Date Jaime Garcia MD [address] [place] [address] [place] [address] PCP - General Family Medicine 10/15/20 documented as of this encounter
--- OUTSIDE RECORDS SUMMARY | 2024-05-13 05:58 | External Medical Summary | Summary of Care ---
Author Name Unknown Organization [facility] Address [address] [place] [address] Phone [phone] Care Team Providers Care Reconciliation Analyst Name Role Phone Jaime Garcia MD Primary Care Provide r Encounter Details Date Type Department Care Team (Late st Contact Info) Description 04/17/2024 Orders Only Family Medicine [address] [place] [id number] Jaime Garcia MD [address] [place] [address] [place] [address] Allergies Active Allergy Reactions Criticality Noted Date [...] 6 mL 3 06/15/2023 4 Active Pen [place] 32G X 4 MM Use as directed. [...] of less than 7.0% ([facility]) take two tablets by mouth in the morning 180 Tablet 1 01/04/2024 Active DULoxetine HCl 20 MG Oral Capsule Delayed Release Particles (Cymbalta) Take 2 Capsules by mouth in the morning. 180 Capsule 1 01/02/2024 Active Magnesium Chloride 64 MG Oral Tablet Delayed Release (Mag64)Indications :Multiple myeloma in relapse ([facility]) Take 1 Tablet by mouth [...] the morning 450 Tablet 03/28/2024 Active Nystatin 976930 UNIT/ML Mouth/Throat SuspensionIndicati ons:Multiple myeloma in relapse ([facility]) Swish and swallow 5 mL in the morning and 5 mL at noon and 5 mL in the evening and 5 mL before bedtime. 60 mL 04/16/2024 Active Privigen 40 GM/400ML Intravenous Solution (Immune Globulin Human-IVIG 10%)Indications:Mu ltiple myeloma in relapse ([facility]) Administer 15 gm IV x 2 days every month. 300 mL 04/16/2024 Active Acetaminophen 325 MG Oral Tablet (Tylenol)Indicatio ns:Multiple myeloma in relapse ([facility]) Take 2 Tablets by mouth as needed (for mild to moderate reaction (infusion reaction protocol)). 04/16/2024 Active diphenhydrAMINE HCl 50 MG/ML Injection Solution (Benadryl)Indicati ons:Multiple myeloma in relapse ([facility]) 25 mg IV push, may [...] remission 06/14/2014 Overview: Dr Rodriges/ [facility] ADVANCE DIRECTIVE INFORMATION 10/13/2006 Overview: No, [...] 10:00 AM EDT [facility] Visit [place] [facility] [address] [place] [address] Sulma Seth, BOBBY 132 [place] [address] 04/19/2024 9:30 AM EDT Office Visit Cardiology [address] [place] [address] Tim Ruiz PA-C 132 [place] [address] 05/01/2024 2:30 PM EDT [facility] 132 [place] [address] Sulma Seth, RN 132 [place] [address] 05/11/2024 11:40 AM EDT Office Visit [facility] Disorders Ctr [facility] 132 [place] [address] Tona Mondragonaret, DO 132 [facility] [place] [address] 05/15/2024 2:00 PM EDT Telemedicine [facility] [address] [place] [address] Thierno Patel PA-C [address] [place] [address] 05/21/2024 2:30 PM EDT Scheduled Telephone [facility], [facility] [address] [place] [address] Yecenia Back, ALEXANDREN [address] [facility] [place] [address] 06/20/2024 3:00 PM EDT [facility]med[facility] [address] [place] [address] Rosalio Amaral MD [address] [place] [address] 07/10/2024 9:30 AM EDT Office Visit Cardiology, [facility] 132 [facility] [place] [address] Beth Salter CRNP 400 [facility] [place] [address] 10/30/2024 1:45 PM EST Office Visit Urology, [facility] 132 [facility] [place] [address] Devyn Paniagua MD [address] [facility] [place] [address] 01/01/2025 10:20 AM EDT Office Visit Otolaryngology [facility] [address] [place] [address] Haley Aguero PA-C [address] [place] [address] Health Maintenance Due Date Last Done Comments [...] 03/12, 01/31/2023, Additional history exists GFR 10/10/2024 04/16/2024, 03/13, 04/02/2024, Additional history exists Diabetic Eye Exam 01/18/2025 01/19/2024, , 07/11/2023, Additional history exists Albumin/Creatinine Ratio 01/26/2025 024, 12/30/2023, 09/08/2023, Additional history exists CKD PHOS USE SMARTSET 11677 03/09/202502/11, 03/08/2024, 03/07/2024, Additional history exists CKD HGB USE SMARTSET 67216 04/09/202504/16, 04/09/2024, 04/02/2024, Additional history exists DTaP,Tdap,and Td [...] this encounter Medical Devices Implanted Type Area Machine Heddle Cleaner Device Identifier Shelf Expiration Date Model / Serial / Lot Port Power Mri W/8fr Cath - [id number] Implanted:Qty: 1 on 09/26/2020 by Simone Michelle MD at OR [facility] Right: Chest CR BARD : PERIPHERAL VASCULAR 10/12/2021 [id number] / / [id number] Description:right IJ Lens Intraoc 19.0 - [id number] - [id number] Implanted:Qty: 1 on 02/03/2021 by Chris Sexton MD at OR [facility] Right: Eye BAUSCH & LOMB 09/11/2025 [id number] / [id number] / Lens Intraoc 19.0 - [id number] - [id number] Implanted:Qty: 1 on 02/24/2021 by Chris Sexton MD at OR [facility] Left: Eye BAUSCH & LOMB 10/12/2025 [id number] / [id number] System Urolift - [id number] Implanted:Qty: 2 on 03/17/2023 by Devyn Paniagua MD at OR [facility] N/A: Urethra [employer] 11/18/2023 AG438-2 / / [id number] System Urolift - [id number] Implanted:Qty: 3 on 03/17/2023 by Devyn Paniagua MD at OR [facility] N/A: Jack [employer] 11/03/2023 GW377-3 / / [id number] documented as of this encounter Procedures Procedure Name Priority Date/Time Associated Diagnosis Comments CHEMISTRY-OUTSIDE Routine 04/16/2024 documented in this encounter Results * (ABNORMAL) CHEMISTRY-OUTSIDE (04/16/2024) Not all results display below - see scan for full detail OUTSIDE LAB (SEE SCANNED REPORT) Comment:SCAN INCLUDES - CBCD , FIBRINOGEN LVL, PT, INR, PTT, CMP, CRP, FERRITIN CREATININE-OUTSID E LAB 1.23 0.70 - 1.30 MG/DL OUTSIDE LAB (SEE SCANNED REPORT) EGFR-OUTSIDE LAB 70 >=60 ML/MIN/1.7 3M2 OUTSIDE LAB (SEE SCANNED REPORT) POTASSIUM-OUTSIDE LAB 5.2(A) 3.5 - 5.1 MMOL/L OUTSIDE LAB (SEE SCANNED REPORT) GLUCOSE-OUTSIDE LAB 139(A) 70 - 110 MG/DL OUTSIDE LAB (SEE [...] LAB OUTSIDE LAB (SEE SCANNED REPORT) HEMOGLOBIN, [id number] LAB OUTSIDE LAB (SEE SCANNED REPORT) PHOSPHORUS-OUTSID E LAB OUTSIDE LAB (SEE SCANNED REPORT) PTH-OUTSIDE LAB OUTS LAVAREZ LAB (SEE SCANNED REPORT) MICROALBUMIN RATIO-OUTSIDE LAB OUTSIDE LA B (SEE SCANNED REPORT) PROTEIN, UA-OUTSIDE LAB OUTSIDE LAB (SEE SCANNED REPORT) HGB 12.7(A) 13.5 - 18.0 GM/DL OUTSIDE LAB (SEE SCANNED REPORT) 04/16/2024 Jaime Garcia MD LABORATORY OUTSIDE LAB (SEE [...] and were consensually agreed upon. Care Teams Reconciliation Analyst Relationship Specialty Start Date End Date Jaime Garcia MD [address] [place] [address] [place] [address] PCP - General Family Medicine 10/15/20 documented as of this encounter
--- OUTSIDE RECORDS SUMMARY | 2024-05-13 05:58 | External Medical Summary | Summary of Care ---
Author Name Unknown Organization [facility] Address [address] [place] [address] Phone [phone] Care Team Providers Care Adoption Specialist Name Role Phone Jaime Garcia MD Primary Care Provide r Reason for Visit * Reason Onset Date Comments FYI 04/16/2024 Encounter Details Date Type Department Care Team (Late st Contact Info) Description 04/16/2024 Telephone H[facility]ology [facility] Tyree UGARTE [address] [facility] [place] [address] Rosalio Amaral MD [address] [facility] [place] [address] FYI Allergies Active Allergy Reactions Criticality Noted Date [...] 6 mL 3 06/15/2023 4 Active Pen [place] 32G X 4 MM Use as directed. [...] less than 7.0% ([facility]) take two tablets by mouth in the morning 180 Tablet 1 01/04/2024 Active DULoxetine HCl 20 MG Oral Capsule Delayed Release Particles (Cymbalta) Take 2 Capsules by mouth in the morning. 180 Capsule 1 01/02/2024 Active Magnesium Chloride 64 MG Oral Tablet Delayed Release (Mag64)Indications :Multiple myeloma in relapse ([facility]) Take 1 Tablet by mouth in the [...] morning 450 Tablet 1 03/28/2024 Active Nystatin 034356 UNIT/ML Mouth/Throat SuspensionIndicati ons:Multiple myeloma in relapse ([facility]) Swish and swallow 5 mL in the morning and 5 mL at noon and 5 mL in the evening and 5 mL before bedtime. 60 mL 1 04/16/2024 Active documented as of this encounter [...] without remission 06/14/2014 Overview: Dr Rodriges/ [facility] ADVANCE DIRECTIVE INFORMATION 10/13/2006 Overview: No, [...] encounter Miscellaneous Notes * Telephone Encounter - Antoinette Fonseca OSA - 04/16/2024 3:50 PM EDT Called and spoke to Anna nurse specialist in regards to patient resuming monthly mobile labs. She will follow up. documented in this encounter Plan of Treatment Upcoming Encounters Date Type Department Care Team (Late st Contact Info) Description 04/18/2024 10:00 AM EDT Home Visit [facility] 132 [facility] [place] [address] Sulma Seth, RN [address] [place] [address] 04/19/2024 9:30 AM EDT Office Visit Cardiology [address] [place] [address] Tim Ruiz PA-C [address] [place] [address] 05/01/2024 2:30 PM EDT [facility], [facility] [address] [place] [address] Sulma eSth RN [address] [place] [address] 05/11/2024 11:40 AM EDT Office Visit Sleep Disorders [facility] [place] [phone] Tona Mondragon DO [address] [place] [address] 05/15/2024 2:00 PM EDT Telemedicine Hematology [facility]cology [facility] Tyree Jordan [address] [facility] [place] [address] Thierno Patel, PAPageC [address] [place] [address] 05/21/2024 2:30 PM EDT Scheduled Telephone [facility], [facility] [address] [place] [address] Yecenia Back RDN [address] [place] [address] 06/20/2024 3:00 PM EDT Telemedicine [facility] [address] [place] [address] Rosalio Amaral MD [address] [facility] [place] [address] 07/10/2024 9:30 AM EDT Office Visit Cardiology, [facility] 132 [place] [address] Beth Salter CRNP 400 [facility] [place] [address] 10/30/2024 1:45 PM EST Office Visit Urology, [facility] 132 [place] [address] Devyn Paniagua MD 27 [place] [address] 01/01/2025 10:20 AM EDT Office Visit Otolaryngology [facility] 132 [place] [address] Haley Aguero PA-C 132 [place] [address] Health Maintenance Due Date Last Done Comments [...] Additional history exists CKD PHOS USE SMARTSET 36476 03/09/202502/11, 03/08/2024, 03/07/2024, Additional history exists CKD HGB USE SMARTSET 38264 04/09/202504/09, 04/02/2024, 03/26/2024, Additional history exists DTaP,Tdap,and [...] this encounter Medical Devices Implanted Type Area Bevel Mill Operator Device Identifier Shelf Expiration Date Model / Serial / Lot Port Power Mri W/8fr Cath - [id number] Implanted:Qty: 1 on 09/26/2020 by Simone Michelle MD at OR [facility] Right: Chest CR BARD : PERIPHERAL VASCULAR 10/12/2021 [id number] / / [id number] Description:right IJ Lens Intraoc 19.0 - [id number] - [id number] Implanted:Qty: 1 on 02/03/2021 by Chris Sexton MD at OR [facility] Right: Eye BAUSCH [employer] LOMB 09/11/2025 [id number] / [id number] / Lens Intraoc 19.0 - [id number] - [id number] Implanted:Qty: 1 on 02/24/2021 by Chris Sexton MD at OR [facility] Left: Eye BAUSCH & LOMB 10/12/2025 [id number] / [id number] System Urolift - [id number] Implanted:Qty: 2 on 03/17/2023 by Devyn Paniagua MD at OR [facility] N/A: Urethra [employer] 11/18/2023 SE473-3 / / [id number] System Urolift - [id number] Implanted:Qty: 3 on 03/17/2023 by Devyn Paniagua MD at OR [facility] N/A: Urethra [employer] 11/03/2023 PD726-1 / / [id number] documented as of this encounter Additional Health [...] and were consensually agreed upon. Care Teams Adoption Specialist Relationship Specialty Start Date End Date Sellathurai, Thiviyanath, MD [address] [place] [address] [place] [address] PCP - General Family Medicine 10/15/20 documented as of this encounter
--- OUTSIDE RECORDS SUMMARY | 2024-05-13 05:58 | External Medical Summary | Summary of Care ---
Author Name Unknown Organization [facility] Address [address] [place] [address] Phone [phone] Care Team Providers Care Solution Coordinator Name Role Phone Jaime Garcia MD Primary Care Provide r Reason for Visit * Reason Onset Date Comments Medical Nutrition Therapy 04/16/2024 Encounter Details Date Type Department Care Team (Latest Contact Info) Description 04/16/2024 10:30 AM EDT Scheduled Telephone [facility] [address] [place] [address] Yecenia Back RDN [address] [place] [address] Type 2 diabetes mellitus with hemoglobin A1c goal of less than 7.0% ([facility])* Allergies Active Allergy Reactions Criticality Noted [...] Tablet 3 04/12/2023 Active Cholecalciferol 50 MCG (1999 UT) Oral [...] PRIOR TO INJECTION 6 mL 3 06/15/2023 Active [place] 32G X 4 MM Use as directed. [...] long-term current use of insulin ([facility]) Use as directed to check blood [...] goal of less than 7.0% ([facility]) take two tablets by mouth in the morning 180 Tablet 1 01/04/2024 Active DULoxetine HCl 20 MG Oral Capsule Delayed Release Particles (Cymbalta) Take 2 Capsules by mouth in the morning. 180 Capsule 1 01/02/2024 Active Nystatin 645398 UNIT/ML Mouth/Throat SuspensionIndicati ons:Multiple myeloma in relapse ([facility]) Swish and swallow 5 mL in the morning and 5 mL at noon and 5 mL in the evening and 5 mL before bedtime. 60 mL 1 01/02/2024 Active Additional Information Patient not taking.Reported on 04/06/2024 Magnesium Chloride 64 MG Oral Tablet Delayed Release (Mag64)Indications :Multiple myeloma in relapse ([facility]) Take 1 Tablet by mouth in [...] the morning 450 Tablet 1 03/28/2024 Active documented as of this encounter (statuses [...] Pressure - - Pulse - - Temperature - - Respiratory Rate - - Oxygen Saturation - - Inhaled Oxygen Concentration - - Weight 64.4 kg (141 lb 15.6 oz) 024 12:27 PM EDT Height 175.3 cm (5' 9") 04/16/2024 12:2 7 PM EDT Body Mass Index 20.97 04/16/2024 12:27 PM EDT documented in this encounter Miscellaneous Notes * Telephone Encounter - Yecenia Back RDN - 04/16/2024 9:47 AM EDT NUTRITION CONSULT - OUTPATIENT [facility] Name: Jerardo Ochoa Jr. Location: [facility] Date: 04/16/2024 Time: 9:47 AM Patient was identified by name and date. After connecting to the patient via telephone, the patient was identified by name and date of . Patient was then informed that this was a telephone call only visit. The patient agreed to participate. Visit Disposition: Routine follow-up Total call duration was 13 minutes. 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 Chronic heart failure with preserved ejection fraction (HCC) Chemotherapy-induced neuropathy (HCC) Dehydration Hypogammaglobulinemia (HCC) Support System: Spouse, Self Barriers To Learning: None Special Education Needs: None Food/Nutrition-Related History Describes typical diet history/24 hr recall: Patient reports poor po intake at this time Patient "barely taking any solid foods/"I'm just so nauseous" (chemo) Patient has been consuming oral nutrition supplement either Boost Very High Calorie or Atkins Protein Shake (whichever is available/3-5x daily/100% completion) Drinks: water/above oral supplements Restaurant meals: rare Alcohol: None Tobacco Use: No Diet Recall/Food Logs Indicate: AREAS FOR IMPROVEMENT: Poor meal distribution Inconsistent carbohydrate intake Inadequate fruit and vegetable intake Inadequate calorie intake Inadequate protein intake Food and Nutrient Intake and other pertinent information: Currently living with his (primary caregiver) assists with care/transportation/food shopping/prepping/cooking of all meals Patient reports "very much nauseated every day" (vomits on occasion) Patient does take Compazine/Zofran for relief ("doesn't always help me but sometimes it really does") EMR notes H/O DM, CHF, Multiple Myeloma Patient utilizes Dexcom to monitor BS BS have been ranging 130's-150's recently When po intake was previously "much better before the chemo", Patient would consume 3 meals/day plus HS snack of low sodium/low sugar foods ("I did try my best not to eat those foods") This dietitian discussed ways to alleviate symptoms of nausea/vomiting and will send nutrition education info to assist as well No food insecurity reported this call Food allergies and/or food intolerances: none reported "Just nauseous from the chemo" Pertinent Medications (Current): Current Outpatient Medications Medication Sig Dispense Refill [...] MORNING 90 Tablet 3 Cholecalciferol 50 MCG (1999 UT) Oral Tablet Take 50 mcg by mouth in the morning. (Patient not taking: Reported on 04/06/2024) 30 Tablet 5 Repatha SureClick 140 MG/ML Subcutaneous Solution Auto-injector (evolocumab) INJECT 140MG (1 INJECTION) UNDER THE SKIN EVERY 14 DAYS. REMOVE FROM REFRIGERATOR 30 MINUTES PRIOR TO INJECTION 6 mL 3 [place] 32G X 4 MM Use as directed. [...] in the morning. 180 Capsule 1 Nystatin 266263 UNIT/ML Mouth/Throat Suspension Swish and swallow 5 [...] No current facility-administered medications for this visit. Supplements: Folic Acid and Magnesium sulfate Prior Nutrition Counseling: No prior counseling Physical Activity: Sedentary Anthropometric Measurements Ht 1.753 m (5' 9") | Wt 64.4 kg (141 lb 15.6 oz) | BMI 20.97 kg/m | BSA 1.77 m Wt Readings from Last 22 Encounters: 04/16/24 64.4 kg (141 lb 15.6 oz) 04/06/24 64.4 kg (141 lb 14.4 oz) 01/27/24 64.7 kg (142 lb 9.6 oz) 01/19/24 65.1 kg (143 lb 8 oz) 01/16/24 65.2 kg (143 lb 12.8 oz) 01/12/24 61.1 kg (134 lb 12.8 oz) 12/30/23 63.8 kg (140 lb 9.6 oz) 12/29/23 63 kg (139 lb) 12/06/23 67.6 kg (149 lb) 11/21/23 68.9 kg (152 lb) 10/28/23 66.9 kg (147 lb 6.4 oz) 10/24/23 70 kg (154 lb 4.8 oz) 10/04/23 70.2 kg (154 lb 12.8 oz) 09/22/23 70.3 kg (155 lb) 09/13/23 71.6 kg (157 lb 12.8 oz) 09/08/23 73.8 kg (162 lb 11.2 oz) 09/02/23 75.3 kg (166 lb) 08/22/23 72.1 kg (159 lb) 08/20/23 72.8 kg (160 lb 6.4 oz) 07/25/23 74.4 kg (164 lb) 07/13/23 76.7 kg (169 lb) 06/29/23 77.8 kg (171 lb 8 oz) 18% weight loss over 10 months Usual Body Weight: 165-170's Highest Weight: 180 lbs Lowest Weight: 140's Weight Change: decreased by 31 pounds in the past 10 months Interpretation of weight change: Unintentional weight loss Weight Goal: avoid any further weight loss BMI: BMI Readings from Last 1 Encounters: 04/16/24 20.97 kg/m Nutrition-Focused Physical Findings No open areas reported Biochemical Data, Medical Tests, and Procedures Latest Reference Range & Units 03/22/24 11:26 03/26/24 00:00 04/02/24 00:00 04/09/24 00:00 Sodium 135 - 146 mmol/L 140 Potassium 3.5 - 5.1 mmol/L 5.1 POTASSIUM-OUTSIDE LAB 3.5 - 5.1 MMOL/L 4.4 (E) 4.4 (E) 4.7 (E) Chloride 98 - 107 mmol/L 105 CO2 22 - 32 mmol/L 27 BUN 6 - 20 mg/dL 39 (H) Creatinine 0.6 - 1.2 mg/dL 1.3 (H) CREATININE-OUTSIDE LAB 0.70 - 1.30 MG/DL 1.34 ! (E) 1.28 (E) 1.15 (E) Estimated Glomerular Filtration Rate >=60 mL/min 64 EGFR-OUTSIDE LAB >60 ML/MIN/1.73M2 63 (E) 67 (E) 76 (E) Anion Gap 7 - 15 mmol/L 8 Glucose 70 - 120 mg/dL 123 (H) GLUCOSE-OUTSIDE LAB 70 - 110 MG/DL 92 (E) 92 (E) 152 ! (E) Calcium 8.4 - 10.2 mg/dL 9.3 (H): Data is abnormally high !: Data is abnormal (E): External lab result Latest Reference Range & Units 03/19/24 00:00 03/26/24 00:00 04/02/24 00:00 04/09/24 00:00 HGB 13.5 - 18.0 GM/DL 10.1 ! (E) 11.1 ! (E) 12.2 ! (E) 12.5 ! (E) !: Data is abnormal (E): External lab result Latest Reference Range & Units 03/29/23 09:09 04/14/23 14:51 07/06/23 08:53 Hemoglobin A1C 4.0 - 5.6 % 8.4 (H) 8.2 (H) 9.3 (H) (H): Data is abnormally high Discussed the negative effects elevated A1C has on the body NUTRITION DIAGNOSIS Suboptimal energy intake related to Poor meal distribution, Inconsistent carbohydrate intake, Inadequate fruit and vegetable intake, Inadequate calorie intake, Inadequate protein intake, Lack of exposure to nutritional management of Malnutrition/Low BMI/Cancer Dx/DM/Heart Health as evidenced by Reported diet and/or activity recall NUTRITION INTERVENTION: FOOD AND/OR NUTRIENT DELIVERY Meals Snacks Supplements NUTRITION EDUCATION Initial/brief nutrition education NUTRITION COUNSELING Strategies Cardiac Education: 2000 mg Na Diet and List of High Sodium Foods Good Nutrition Education: Boosting Calorie Intake , Boosting Protein Intake, Enjoying More Fruits & Vegetables , Guide to Health Eating, Healthy Eating Away From Home , Snack Ideas, High Calorie Beverage Recipes, Iron Rich Diet, Make Healthy Food Choices, MyPlate , Planning Healthy, Easy Meals , Sample Menus, and Start Your Day with Healthy Breakfast Diabetes Education: High Sugar Foods to Limit and Tips for Eating Well to Manage Blood Sugar Nutrition Prescription: Diet: 2000 mg Sodium (Heart Health) Consistent Carbohydrate (H/O DM) Good Nutrition High Calorie/High Protein (low BMI/Cancer Dx/Loss of Weight) Iron Rich Foods (due to low HGB lab work) Raheel Contreras: Raheel Lane (Male): 1769.24 (04/16/24 1227) Daily Calorie Needs: 1769 Kcals + 500 kcals = 2269 Kcals/day (promote weight gain/low BMI) Daily Protein Needs: 84-97 Grams protein (1.3-1.5g/kg bw of 64.4 kg) Goals: 1) Consume 4-5 smaller meals/day ("grazing") vs 3 bigger meals of low sodium/low sugar, protein/calorie/iron rich foods along with consistent carbohydrates per Patient tolerance (reviewed foods to consume/avoid/healthy options provided) 2) Continue to consume oral nutrition supplement- Boost Very High Protein or Atkins protein Shake-per Patient tolerance (due to poor po intake) Dietitian Action: 1) Discussed the importance of consuming 4-5 smaller meals/day ("grazing") vs 3 bigger meals of lowsodium/low sugar, protein/calorie/iron rich foods along with consistent carbohydrates for better heart health, to better control BS, to prevent any further weight loss, to encourage po intake, and for optimal nutrition 2) Will send nutrition education materials for Boosting Protein/Calories, Iron Rich Foods, Anti-Nausea Diet, Healthy Snacks, Low Sodium Diet, Diabetes Meal Planning, and contact info should any questions or concerns arise Recommendations to Ordering Provider: Continue current plan of nutrition care. NUTRITION MONITORING AND EVALUATION: The following will be monitored and evaluated at the next visit: Monitor weight. Monitor labs. Review food logs. Monitor goals and progress. Plan:Patient scheduled to return in 3-5 weeks; dietitian phone # given for future reference. 15 minutes Medical Nutrition Therapy 15 min (8-22 min) 30 min (23-37 min) 45 min (38-52 min) 60 min (53-67 min) 75 min (68-82 min) 90 min (83-97 min) 105 min (98-113 min) Time In: 1030 (04/16/24 1256) Time Out: 1043 (04/16/24 1256) Yecenia Back RDN [facility], [facility] documented in this encounter Plan of Treatment Upcoming Encounters Date Type Department Care Team (Late st Contact Info) Description 04/16/2024 2:30 PM EDT Telemedicine [facility]ology [facility] [address] [facility] [place] [address] Rosalio Amaral MD [address] [facility] [place] [address] Arrived 04/18/2024 10:00 AM EDT Home Visit [facility], [facility] [address] [place] [address] Sulma Seth, RN [address] [place] [address] 04/19/2024 9:30 AM EDT Office Visit Cardiology [address] [place] [address] Tim Ruiz PA-C [address] [place] [address] 05/01/2024 2:30 PM EDT Home Visit [facility], [facility] [address] [place] [address] Sulma Seth, BOBBY [address] [place] [address] 05/11/2024 11:40 AM EDT Office Visit [facility] [address] [place] [phone] Tona Mondragon DO [address] [place] [address] 05/15/2024 2:00 PM EDT [facility] [address] [place] [address] Thierno Patel PA-C [address] [place] [address] 05/21/2024 2:30 PM EDT Scheduled Telephone [facility], [facility] [address] [place] [address] Yecenia Back RDN [address] [place] [address] 06/20/2024 3:00 PM EDT Telemedicine [facility] [address] [facility] [place] [address] Rosalio Amaral MD [address] [facility] [place] [address] 07/10/2024 9:30 AM EDT Office Visit Cardiology, [facility] [address] [facility] [place] [address] Beth Salter CRNP [address] [facility] [place] [address] 10/30/2024 1:45 PM EST Office Visit Urology, [facility] [address] [facility] [place] [address] Devyn Paniagua MD [address] [facility] [place] [address] 01/01/2025 10:20 AM EDT Office Visit Otolaryngology [facility] [address] [facility] [place] [address] Haley Aguero PA-C 132 [facility] [place] [address] Health Maintenance Due Date Last Done Comments [...] Additional history exists CKD PHOS USE SMARTSET 39859 03/09/202502/11, 03/08/2024, 03/07/2024, Additional history exists CKD HGB USE SMARTSET 24430 04/09/202504/09, 04/02/2024, 03/26/2024, Additional history exists DTaP,Tdap,and [...] this encounter Medical Devices Implanted Type Area Shingle Packer Device Identifier Shelf Expiration Date Model / Serial / Lot Port Power Mri W/8fr Cath - [id number] Implanted:Qty: 1 on 09/26/2020 by Simone Michelle MD at OR [facility] Right: Chest CR BARD : PERIPHERAL VASCULAR 10/12/2021 [id number] / / [id number] Description:right IJ Lens Intraoc 19.0 - [id number] - [id number] Implanted:Qty: 1 on 02/03/2021 by Chris Sexton MD at OR [facility] Right: Eye BAUSCH [employer] LOMB 09/11/2025 [id number] / [id number] / Lens Intraoc 19.0 - [id number] - [id number] Implanted:Qty: 1 on 02/24/2021 by Chris Sexton MD at OR [facility] Left: Eye BAUSCH & LOMB 10/12/2025 [id number] / [id number] / [id number] System Urolift - [id number] Implanted:Qty: 2 on 03/17/2023 by Devyn Paniagua MD at OR [facility] N/A: Urethra [employer] 11/18/2023 [id number] / / [id number] System Urolift - [id number] Implanted:Qty: 3 on 03/17/2023 by Devyn Paniagua MD at OR [facility] N/A: Urethra [employer] 11/03/2023 [id number] / / [id number] documented as of this encounter Visit Diagnoses Diagnosis Type 2 diabetes mellitus with hemoglobin A1c goal of less than 7.0% ([facility])- Primary documented in this encounter Additional Health [...] and were consensually agreed upon. Care Teams Solution Coordinator Relationship Specialty Start Date End Date Jaime Garcia MD [address] [place] [address] [place] [address] PCP - General Family Medicine 10/15/20 documented as of this encounter
--- OUTSIDE RECORDS SUMMARY | 2024-05-13 05:58 | External Medical Summary | Summary of Care ---
Author Name Unknown Organization [facility] Address [address] [place] [address] Phone [phone] Care Team Providers Care Manager Editorial Name Role Phone Jaime Garcia MD Primary Care Provide r Encounter Details Date Type Department Care Team (Late st Contact Info) Description 04/24/2024 Orders Only Family Medicine [address] [place] [phone] Jaime Garcia MD [address] [place] [address] [place] [address] Allergies Active Allergy Reactions Criticality Noted Date [...] 6 mL 3 06/15/2023 4 Active Pen [place] 32G X 4 MM Use as directed. [...] of less than 7.0% ([facility]) take two tablets by mouth in the morning 180 Tablet 1 01/04/2024 Active DULoxetine HCl 20 MG Oral Capsule Delayed Release Particles (Cymbalta) Take 2 Capsules by mouth in the morning. 180 Capsule 1 01/02/2024 Active Magnesium Chloride 64 MG Oral Tablet Delayed Release (Mag64)Indications :Multiple myeloma in relapse ([facility]) Take 1 Tablet by mouth [...] the morning 450 Tablet 03/28/2024 Active Nystatin 286365 UNIT/ML Mouth/Throat SuspensionIndicati ons:Multiple myeloma in relapse (HCC) Swish and swallow 5 mL in the morning and 5 mL at noon and 5 mL in the evening and 5 mL before bedtime. 60 mL 04/16/2024 Active Privigen 40 GM/400ML Intravenous Solution (Immune Globulin Human-IVIG 10%)Indications:Mu ltiple myeloma in relapse ([facility]) Administer 15 gm IV x 2 days every month. 300 mL 04/16/2024 Active Acetaminophen 325 MG Oral Tablet (Tylenol)Indicatio ns:Multiple myeloma in relapse (HCC) Take 2 Tablets by mouth as needed (for mild to moderate reaction (infusion reaction protocol)). 04/16/2024 Active diphenhydrAMINE HCl 50 MG/ML Injection Solution (Benadryl)Indicati ons:Multiple myeloma in relapse ([facility]) 25 mg IV push, may [...] Description 05/01/2024 2:30 PM EDT Home Visit [facility] [address] [place] [address] Sulma Seth RN 132 [facility] [place] [address] 05/10/2024 1:00 PM EDT Home Visit [facility] [address] [place] [address] Jessica Browning RN [address] [place] [address] 05/11/2024 11:40 AM EDT Office Visit [facility] [address] [place] [phone] Tona Mondragon DO [address] [place] [address] 05/11/2024 3:45 PM EDT Home Visit [facility] Infusion [facility] [address] [place] [address] Beth Berry, BOBBY [address] [place] [address] 05/15/2024 2:00 PM EDT [facility] [address] [place] [address] Thierno Patel PA-C [address] [place] [address] 05/21/2024 2:30 PM EDT Scheduled Telephone [facility], [facility] [address] [place] [address] [address]N [address] [facility] [place] [address] 06/20/2024 3:00 PM EDT [facility] [address] [place] [address] Rosalio Amaral MD [address] [facility] [address] 07/10/2024 9:30 AM EDT Office Visit Cardiology, [facility] [address] [facility] [place] [address] Beth Salter CRNP [address] [facility] [place] [address] 10/30/2024 1:45 PM EST Office Visit Urology, [facility] [address] [facility] [place] [address] Devyn Paniagua MD [address] [place] [address] [place] [address] 01/01/2025 10:20 AM EDT Office Visit Otolaryngology [facility] [address] [place] [address] Haley Aguero PA-C [address] [place] [address] Health Maintenance Due Date Last Done Comments [...] Additional history exists CKD PHOS USE SMARTSET 37202 03/09/202502/11, 03/08/2024, 03/07/2024, Additional history exists CKD HGB USE SMARTSET 08532 04/16/202504/23, 04/16/2024, 04/09/2024, Additional history exists DTaP,Tdap,and [...] this encounter Medical Devices Implanted Type Area Operations Dispatcher Device Identifier Shelf Expiration Date Model / Serial / Lot Port Power Mri W/8fr Cath - [id number] Implanted:Qty: 1 on 09/26/2020 by Simone Michelle MD at OR [facility] Right: Chest CR BARD : PERIPHERAL VASCULAR 10/12/2021 [id number] / / [id number] Description:right IJ Lens Intraoc 19.0 - [id number] - [id number] Implanted:Qty: 1 on 02/03/2021 by Chris Sexton MD at OR [facility] Right: Eye BAUSCH & LOMB 09/11/2025 [id number] / [id number] / Lens Intraoc 19.0 - [id number] - [id number] Implanted:Qty: 1 on 02/24/2021 by Chris Sexton MD at OR [facility] Left: Eye BAUSCH & LOMB 10/12/2025 [id number] / [id number] / [id number] System Urolift - [id number] Implanted:Qty: 2 on 03/17/2023 by Devyn Paniagua MD at OR [facility] N/A: Urethra [employer] 11/18/2023 [id number] / / [id number] System Urolift - [id number] Implanted:Qty: 3 on 03/17/2023 by Devyn Paniagua MD at OR [facility] N/A: Urethra [employer] 11/03/2023 [id number] / / [id number] documented as of this encounter Procedures Procedure Name Priority Date/Time Associated Diagnosis Comments CHEMISTRY-OUTSIDE Routine 04/23/2024 CHEMISTRY-OUTSIDE Routine 04/23/2024 documented in this encounter Results * (ABNORMAL) CHEMISTRY-OUTSIDE (04/23/2024) Not all results display below - see scan for full detail OUTSIDE LAB (SEE SCANNED REPORT) Comment:PH CLEARFIELD-FIBRIN OGEN LVL, PT,INR,PTT,GFR,CMP CREATININE-OUTSID E LAB 1.27 0.70 - 1.30 MG/DL OUTSIDE LAB (SEE SCANNED REPORT) EGFR-OUTSIDE LAB 67 60 ML/MIN OUT SIDE LAB (SEE SCANNED REPORT) POTASSIUM-OUTSIDE LAB 4.6 3.5 - 5.1 MMOL OUTSIDE LAB (SEE SCANNED REPORT) GLUCOSE-OUTSIDE LAB 120(A) 70 - 110 MG/DL OUTSIDE LAB (SEE [...] LAB OUTSIDE LAB (SEE SCANNED REPORT) HEMOGLOBIN, F5S-WTOJAEV LAB OUTSIDE LAB (SEE SCANNED REPORT) PHOSPHORUS-OUTSID E LAB OUTSIDE LAB (SEE SCANNED REPORT) PTH-OUTSIDE LAB OUTS ALVAREZ LAB (SEE SCANNED REPORT) MICROALBUMIN RATIO-OUTSIDE LAB OUTSIDE LA B (SEE SCANNED REPORT) PROTEIN, UA-OUTSIDE LAB OUTSIDE LAB (SEE SCANNED REPORT) HGB OUTSIDE LA B (SEE SCANNED REPORT) 04/23/2024 Jaime Garcia MD LABORATORY OUTSIDE LAB (SEE SCANNED REPORT) * (ABNORMAL) CHEMISTRY-OUTSIDE (04/23/2024) Not all results display below - see scan for full detail OUTSIDE LAB (SEE SCANNED REPORT) Comment:PH CLEARFIELD -CBCD CREATININE-OUTSID E LAB OUTSIDE LAB (SEE SCANNED [...] LAB OUTSIDE LAB (SEE SCANNED REPORT) HEMOGLOBIN, C3B-FKGWDEM LAB OUTSIDE LAB (SEE SCANNED REPORT) PHOSPHORUS-OUTSID E LAB OUTSIDE LAB (SEE SCANNED REPORT) PTH-OUTSIDE LAB OUTS ALVAREZ LAB (SEE SCANNED REPORT) MICROALBUMIN RATIO-OUTSIDE LAB OUTSIDE LA B (SEE SCANNED REPORT) PROTEIN, UA-OUTSIDE LAB OUTSIDE LAB (SEE SCANNED REPORT) HGB 11.7(A) 13.5 - 18 GM/DL OUTSIDE LAB (SEE SCANNED REPORT) 04/23/2024 Jaime Garcia MD LABORATORY OUTSIDE LAB (SEE [...] were consensually agreed upon. Care Teams Manager Editorial Relationship Specialty Start Date End Date Jaime Garcia MD [address] [place] [address] [place] [phone] PCP - General Family Medicine 10/15/20 documented as of this encounter
--- OUTSIDE RECORDS SUMMARY | 2024-05-13 05:59 | External Medical Summary | Summary of Care ---
Author Name Unknown Organization [facility] Address [address] [place] [address] Phone [phone] Care Team Providers Care Sanitation Inspector Name Role Phone Jaime Garcia MD Primary Care Provide r Reason for Visit * Reason Comments IV Therapy IVIG * Episode Based Medications (Routine) - Authorized Specialty Diagnoses / Procedures Referred By Darin lui Referred To Contact Diagnoses Hypogammaglobulinemia (HCC) AL amyloidosis (HCC) Dehydration Multiple myeloma without remission (HCC) Procedures SC INJ IVIG PRIVIGEN 500 MG Rosalio Amaral MD [address] [place] [address] Anc Hem/Onc Scenery [address] [address] Referral ID Status Reason Start Date Expiration Date V isits Requested Visits Authorized [id number] Authorized 02/14/2024 04/15/2024 [id number] Encounter Details Date Type Department Care Team (Latest Contact Info) Description 04/13/2024 12:00 PM EDT Hem/Onc Treatment Hematology/Oncolo gy Treatment, [address] [phone] Batool Chair 4 Hem Onc [address] [address] Hypogammaglobulinemia (HCC)*; AL amyloidosis (HCC); Dehydration; Multiple myeloma without remission (HCC) Allergies Active Allergy Reactions Criticality Noted Date Comments Atorvastatin Muscle pain High 03/30/2019 Ezetimibe Muscle pain High 01/25/2020 documented as of this encounter (statuses as of 04/13/2024) Medications Medication Sig Dispensed Refills Start Date End Date Status CPAP every night at bedtime. Active oxygen IN GAS Use 2 L/min(Oxygen) as directed at bedtime. 1 Each 11/11/2020 Active Iggli Ultra Blue In Vitro Strip (Glucose Blood)Indications: Type 2 diabetes mellitus with hemoglobin A1c goal of less than 7.0% ([facility]) Use as directed daily. Test once daily DxE11.9 100 Strip 5 03/02/2021 Active LancetsIndications :Type 2 diabetes mellitus with hemoglobin A1c goal of less than 7.0% ([facility]) Test once daily DxE11.9. 100 Each [...] 6 mL 3 06/15/2023 4 Active Pen [place] 32G X 4 MM Use as directed. [...] morning. 180 Capsule 1 01/02/2024 Active Nystatin 607248 UNIT/ML Mouth/Throat SuspensionIndicati ons:Multiple myeloma in relapse [...] as of this encounter (statuses as of 04/13/2024) Active Problems Problem Noted Date Diagnosed Date [...] as of this encounter (statuses as of 04/13/2024) Resolved Problems Problem Noted Date Diagnosed Date [...] as of this encounter (statuses as of 04/13/2024) Immunizations Name Administration Dates Next Due COVID-19, [...] Sign Reading Time Taken Comments Blood Pressure 121/87 04/13/2024 12:26 PM EDT Pulse 94 04/13/2024 12:26 PM EDT Temperature 36 C (96.8 F) 04/13/2024 12:26 PM EDT Respiratory Rate 16 04/13/2024 12:26 PM EDT Oxygen Saturation 96% 04/13/2024 12:26 PM EDT Inhaled Oxygen Concentration - - Weight - - Height - - Body Mass Index - - documented in this encounter Nursing Notes * Elma Ruiz RN - 04/13/2024 2:05 PM EDT Goals: Patient will remain free from injury. Possible barriers to meeting goals: ambulating with IV pole, weakness, use of cane Stability of the patient: Moderately stable - low risk of patient condition declining or worsening Summary regarding today's goals: Met: pt remained free of harm today Patient tolerated treatment well without any acute issues or problems. Patient left facility in stable condition and denied any further needs. * Elma Ruiz RN - 04/13/2024 12:27 PM EDT Chair 11. Port needle in place from tx yesterday -- CDI/WNL, no issues. Patient is overall feeling okay, has just been very fatigued since his CAR-T cell therapy in February. Safety and Risk for Injury Patient will remain free from injury. Ensure appropriate safety devices are available. Provide and maintain safe environment. Patient instructed on use of heat and massage functions where applicable. Patient shown how to operate the heat function of the chair and to alert nursing staff if the chair feels too warm. Patient instructed on the risk of potential grimes while using the heat function. documented in this encounter Plan of Treatment Upcoming Encounters Date Type Department Care Team (Late st Contact Info) Description 04/16/2024 10:30 AM EDT Scheduled Telephone [facility], [facility] [address] [place] [address] Yecenia Back RDN [address] [place] [address] 04/16/2024 2:30 PM EDT [facility]medicine [facility] [address] [facility] [place] [address] Rosalio Amaral MD [address] [place] [address] 04/18/2024 10:00 AM EDT Home Visit [facility], [facility] [address] [place] [address] uSlma Seth, RN [address] [place] [address] 04/18/2024 11:20 AM EDT Office Visit Family Medicine [address] [place] [phone] Jaime Garcia MD [address] [place] [address] [place] [address] 04/19/2024 9:30 AM EDT Office Visit Cardiology [address] [place] [address] Tim Ruiz PA-C [address] [place] [address] 05/01/2024 2:30 PM EDT Home Visit [facility], [facility] [address] [place] [address] Sulma Seth, RN [address] [place] [address] 05/11/2024 11:40 AM EDT Office Visit [facility] Disorders Ctr [facility] [address] [facility] [place] [phone] Tona Mondragon DO [address] [place] [address] 05/15/2024 2:00 PM EDT Telemedicine Hematology [facility] [place] [address] [place] [address] Thierno Patel PA-C [address] [place] [address] 06/20/2024 3:00 PM EDT Telemedicine H[facility]ology [facility] [place] [address] [place] [address] Rosalio Amaral MD [address] [place] [address] 07/10/2024 9:30 AM EDT Office Visit Cardiology, [facility] [address] [facility] [place] [address] Beth Salter CRNP [address] [facility] [place] [address] 10/30/2024 1:45 PM EST Office Visit Urology, [facility] [address] [facility] [place] [address] Devyn Paniagua MD [address] [facility] [place] [address] 01/01/2025 10:20 AM EDT Office Visit Otolaryngology [facility] [address] [facility] [place] [address] Haley Aguero PA-C [address] [facility] [place] [address] Scheduled Orders Name Type Priority Associated Diagnoses Orde r Schedule DIRECT IVONNE Lab STAT Hypogammaglobulinemia (HCC) AL amyloidosis (HCC) Dehydration Multiple myeloma without remission (HCC) Expected: 04/13/2024 (Approximate), Expires: 10/10/2024 HEPATITIS B SURFACE ANTIGEN Lab STAT Hypogammaglobulinemia (HCC) AL amyloidosis (HCC) Dehydration Multiple myeloma without remission (HCC) One Time for 1 Occurrences starting 04/13/2024 until 04/13/2024 HEPATITIS B CORE ANTIBODIES IGG AND IGM Lab STAT Hypogammaglobulinemia (HCC) AL amyloidosis (HCC) Dehydration Multiple myeloma without remission (HCC) One Time for 1 Occurrences starting 04/13/2024 until 04/13/2024 HEPATITIS B SURFACE ANTIBODY Lab STAT Hypogammaglobulinemia (HCC) AL amyloidosis (HCC) Dehydration Multiple myeloma without remission (HCC) One Time for 1 Occurrences starting 04/13/2024 until 04/13/2024 Health Maintenance Due Date Last Done Comments [...] Additional history exists CKD PHOS USE SMARTSET 82639 03/09/202502/11, 03/08/2024, 03/07/2024, Additional history exists CKD HGB USE SMARTSET 71567 04/09/202504/09, 04/02/2024, 03/26/2024, Additional history exists DTaP,Tdap,and [...] this encounter Medical Devices Implanted Type Area In Room Dining Server Device Identifier Shelf Expiration Date Model / Serial / Lot Port Power Mri W/8fr Cath - [id number] Implanted:Qty: 1 on 09/26/2020 by Simone Michelle MD at OR [facility] Right: Chest CR BARD : PERIPHERAL VASCULAR 10/12/2021 [id number] / / [id number] Description:right IJ Lens Intraoc 19.0 - [id number] - [id number] Implanted:Qty: 1 on 02/03/2021 by Chris Sexton MD at OR [facility] Right: Eye [employer] 09/11/2025 [id number] / [id number] / Lens Intraoc 19.0 - [id number] - [id number] Implanted:Qty: 1 on 02/24/2021 by Chris Sexton MD at OR [facility] Left: Eye [employer] 10/12/2025 [id number] / [id number] / [id number] System Urolift - [id number] Implanted:Qty: 2 on 03/17/2023 by Devyn Paniagua MD at OR [facility] N/A: Urethra [employer] 11/18/2023 [id number] / / [id number] System Urolift - [id number] Implanted:Qty: 3 on 03/17/2023 by Devyn Paniagua MD at OR [facility] N/A: Urethra [employer] 11/03/2023 [id number] / / [id number] documented as of this encounter Visit Diagnoses Diagnosis Hypogammaglobulinemia (HCC)- Primary Hypogammaglobulinaemia, unspecified AL amyloidosis (HCC) Other amyloidosis Dehydration Multiple myeloma without remission (HCC) Multiple myeloma, without mention of having achieved remission documented in this encounter Administered Medications Active Administered Medications - up to 3 most recent administrations Medication Order MAR Action Action Date Dose Rate Site Acetaminophen (Tylenol) tab 650 mg 650 mg, Oral, ONCE PRN If previous infusion reaction with IVIG, Starting on Tue04/13/24 at 1330, Until Discontinued, Maximum of 4 grams (4000 mg) per day. Given 04/13/2024 12:21 PM EDT 650 mg Acetaminophen (Tylenol) tab 650 mg 650 mg, Oral, ONCE PRN or Chills, Starting on Tue04/13/24 at 1218, Until 04/14/24 at 1217, For 24 hours, Maximum of 4 grams (4000 mg) per day. Give 4 hrs after initial dose. diphenhydrAMINE (Benadryl) cap 25 mg 25 mg, Oral, ONCE PRN If previous infusion reaction with IVIG, Starting on Tue04/13/24 at 1330, Until Discontinued Given 04/13/2024 12:21 PM EDT 25 mg diphenhydrAMINE (Benadryl) cap 25 mg 25 mg, Oral, ONCE PRN Other, Fever/Chills, Starting on Tue04/13/24 at 1218, Until 04/14/24 at 1217, For 24 hours, Give 4 hrs after initial dose diphenhydrAMINE (Benadryl) inj 50 mg 50 mg, IV Push, ONCE PRN Other, Hypersensitivity Reaction, Starting on Tue04/13/24 at 1218, Until 04/14/24 at 1217, For 24 hours EPINEPHrine 1 MG/ML inj 0.3 mg 0.3 mg, Intramuscular, ONCE PRN Other, Hypersensitivity Reaction or Anaphylaxis, Starting on Tue04/13/24 at 1218, Until 04/14/24 at 1217, For 24 hours hEParin 100 UNIT/ML Lock Flush inj 500 Units 500 Units (5 mL), IV Lock, PRN Other, IV Flush, Starting on Tue04/13/24 at 1218, Until 04/14/24 at 1217, For 24 hours, Do not flush if lock, PICC, or central line not in place; IV infusing or unable to flush. Given 04/13/2024 1:34 PM EDT 500 Units Hydrocortisone Sod Suc (PF) (Solu-Cortef) inj 100 mg 100 mg, IV Push, ONCE PRN Other, Hypersensitivity Reaction, Starting on Tue04/13/24 at 1218, Until 04/14/24 at 1217, For 24 hours NSS infusion 500 mL, Intravenous, at 50 mL/hr, CONTINUOUS, Starting on Tue04/13/24 at 1330, Until Tue04/13/24 at 2329 Start Infusion 04/13/2024 12:21 PM EDT 500 mL 50 mL/hr oxygen GAS Inhalation, OXYGEN, First dose on Tue04/13/24 at 1600, Until Discontinued, Device/Managed by: Low Flow Device, Goal SPO2 (%): 91-95, Starting Device: Nasal Cannula, Initial Flow Rate (LPM): 2, Lowest Support: Nasal Cannula: Flow 0-6 LPM. Titrate up/down by 1 LPM., Higher Support: Non-Rebreather (NRB) Mask: Minimum of 10 LPM. Titrate to maintain bag inflation., Titration Interval: Q2 minutes and as needed., Notify Provider: For sudden DECREASE in resting SPO2 to less than 85% and when escalating delivery device., Wean patient off Oxygen when the oxygen saturation is greater than or equal to 93% sodium chloride 0.9 % flush central line 10 mL 10 mL, IV Push, PRN Other, IV Flush, Starting on Tue04/13/24 at 1218, Until 04/14/24 at 1217, For 24 hours, Do not flush if lock, PICC, or central line not in place; IV infusing or unable to flush. Given 04/13/2024 1:34 PM EDT 10 mL Inactive Administered Medications - up to 3 most recent administrations Medication Order MAR Action Action Date Dose Rate Site Immune Globulin Human-IVIG 10% (Privigen) IV 10 g 10 g, IV Piggyback, ONCE, 1 dose, On Tue04/13/24 at 1400, Total dose = 15 g Dispensed as 1 x 5 gram bottle and 1 x 10 gram bottle Vial 2 of 2 All subsequent vials will start at the ending rate of the previous vial PRIVIGEN infusion instructions Recommended Infusion Rate - Adult non-ITP indications 0.005 mL/kg/min = 21 mL/hour for 15 minutes 5 mls 0.01 mL/kg/min = 42 mL/hour for 15 minutes 11 mls 0.02 mL/kg/min = 85 mL/hour for 15 minutes 21 mls 0.04 mL/kg/min = 170 mL/hour for 15 minutes 42 mls 0.08 mL/kg/min = 340 mL/hour Use this rate until finished 71 mls 70 Infusion duration = 1.2 hours Rate Change 04/13/2024 1:15 PM EDT 340 mL/hr Start Infusion 04/13/2024 1:12 PM EDT 10 g 170 mL/hr Immune Globulin Human-IVIG 10% (Privigen) IV 5 g 5 g, IV Piggyback, ONCE, 1 dose, On Tue04/13/24 at 1400, Total dose = 15 g Dispensed as 1 x 5 gram bottle and 1 x 10 gram bottle Vial 1 of 2 All subsequent vials will start at the ending rate of the previous vial PRIVIGEN infusion instructions Recommended Infusion Rate - Adult non-ITP indications 0.005 mL/kg/min = 21 mL/hour for 15 minutes 5 mls 0.01 mL/kg/min = 42 mL/hour for 15 minutes 11 mls 0.02 mL/kg/min = 85 mL/hour for 15 minutes 21 mls 0.04 mL/kg/min = 170 mL/hour for 15 minutes 42 mls 0.08 mL/kg/min = 340 mL/hour Use this rate until finished 71 mls 70 Infusion duration = 1.2 hours Rate Change 04/13/2024 1:02 PM EDT 8 5 mL/hr Rate Change 04/13/2024 12:47 PM EDT 42 mL/hr Start Infusion 04/13/2024 12:34 PM EDT 5 g 21 mL/hr documented in this encounter Additional Health [...] and were consensually agreed upon. Care Teams Sanitation Inspector Relationship Specialty Start Date End Date Jaime Garcia MD [address] [place] [address] [place] [address] PCP - General Family Medicine 10/15/20 documented as of this encounter
--- OUTSIDE RECORDS SUMMARY | 2024-05-13 05:59 | External Medical Summary | Summary of Care ---
Author Name Unknown Organization [facility] Address [address] [place] [address] Phone [phone] Care Team Providers Care Adjunct Trainer Name Role Phone Jaime Garcia MD Primary Care Provide r Reason for Visit * Reason Onset Date Comments Appointment 04/03/2024 Encounter Details Date Type Department Care Team (Late st Contact Info) Description 04/03/2024 Telephone Hematology/Oncology Treatment, [place] [address] [place] [phone] Rosalio Amaral MD [address] [place] [id number] Appointment Allergies Active Allergy Reactions Criticality Noted Date Comments Atorvastatin Muscle pain High 03/30/2019 Ezetimibe Muscle pain High 01/25/2020 documented as of this encounter (statuses as of 04/11/2024) Medications Medication Sig Dispensed Refills Start Date End Date Status CPAP every night at bedtime. Active oxygen IN GAS Use 2 L/min(Oxygen) as directed at bedtime. 1 Each 1 Active PhotorankTouch Ultra Blue In Vitro Strip (Glucose Blood)Indications:T [...] once daily 180 Tablet 3 2 Active Acetaminophen 325 MG Oral Tablet (Tylenol) Take two 325 mg tablets by mouth one hour prior to Hizentra. 30 Tablet 3 3 Active Polyethylene Glycol 3350 17 GM Oral Packet Take 1 Packet by mouth daily as needed. Active oxyCODONE-Acetamino phen 5-325 MG Oral Tablet (Percocet) Take 1 Tablet by mouth every 6 hours as needed for Pain, Severe. 10 Tablet 3 Active Additional Information Patient not taking.Reported on 04/06/2024 Finasteride 5 MG Oral Tablet (Proscar) TAKE 1 TABLET BY MOUTH IN THE MORNING 90 Tablet 3 3 05/20/20 24 Active Cholecalciferol 50 MCG (2000 UT) Oral TabletIndications:L ambda light chain myeloma (HCC),Multiple myeloma without remission (HCC) Take 50 mcg by mouth in the morning. 30 Tablet 5 3 Active Additional Information Patient not taking.Reported on 04/06/2024 Repatha SureClick 140 MG/ML Subcutaneous Solution Auto-injector (evolocumab)Indicat ions:Dyslipidemia, goal LDL below 70 INJECT 140MG (1 INJECTION) UNDER THE SKIN EVERY 14 DAYS. REMOVE FROM REFRIGERATOR 30 MINUTES PRIOR TO INJECTION 6 mL 3 3 06/14/20 24 Active Pen [place] 32G X 4 MM Use as directed. Inject Lantus once daily. 50 Each 3 3 Active Icosapent Ethyl 1 GM Oral Capsule (Vascepa)Indication s:Hyperlipidemia with target LDL less than 70 Take 2 Capsules by mouth 2 times a day with morning and evening meals. Swallow capsules whole, do not open or break. 360 Capsule 3 3 Active Additional Information Patient not taking.Reported on 04/06/2024 Pantoprazole Sodium 20 MG Oral Tablet Delayed Release (Protonix)Indicatio ns:Gastroesophageal reflux disease without esophagitis TAKE ONE TABLET BY MOUTH EVERY DAY IN THE MORNING 90 Tablet 2 3 08/30/20 24 Active Dexcom G7 SensorIndications:T ype 2 diabetes mellitus with stage 3b chronic kidney disease, without long-term current use of insulin ([facility]) Use as directed to check blood sugars daily. Change every 10 days 9 Each 3 3 Active Ondansetron HCl 8 MG Oral Tablet (Zofran)Indications :Nausea Take 1 Tablet by mouth every 8 hours as needed for Nausea. 30 Tablet 3 4 Active Additional Information Patient not taking.Reported on [...] Active Levothyroxine Sodium 50 MCG Oral Tablet (Levoxyl)Indication s:Hypothyroidism due to amiodarone TAKE 1 TABLET BY MOUTH DAILY AT LEAST 30 MINUTES PRIOR TO FIRST MEAL OF THE DAY OR OTHER MEDICATIONS 90 Tablet 3 4 12/23/19 25 Active metFORMIN HCl ER 500 MG Oral Tablet Extended Release 24 Hour (Glucophage XR)Indications:Type 2 diabetes mellitus with hemoglobin A1c goal of less than 7.0% ([facility]) take two tablets by mouth in the morning 180 Tablet 1 4 Active DULoxetine HCl 20 MG Oral Capsule Delayed Release Particles (Cymbalta) Take 2 Capsules by mouth in the morning. 180 Capsule 1 4 Active Nystatin 641208 UNIT/ML Mouth/Throat SuspensionIndicatio ns:Multiple myeloma in relapse ([facility]) Swish and swallow 5 mL in the morning and 5 mL at noon and 5 mL in the evening and 5 mL before bedtime. 60 mL 1 4 Active Additional Information Patient not taking.Reported on 04/06/2024 Magnesium Chloride 64 MG Oral Tablet Delayed Release (Mag64)Indications: Multiple myeloma in relapse (HCC) Take 1 Tablet by mouth in the morning and 1 Tablet before bedtime. 180 Tablet 3 4 Active Additional Information Patient not taking.Reported on 04/06/2024 Prochlorperazine Maleate 10 MG Oral Tablet (Compazine)Indicati ons:Nausea and vomiting, unspecified vomiting type TAKE ONE TABLET BY MOUTH EVERY SIX HOURS NEEDED FOR NAUSEA 40 Tablet 4 Active Folic Acid 400 MCG Oral TabletIndications:L [...] the morning 450 Tablet 1 4 Active Ondansetron 4 MG Oral Tablet Disintegrating (Zofran) 3 04/06/20 24 Discontinu ed(Patient preference /discontin uation) documented as of this encounter (statuses as of 04/11/2024) Active Problems Problem Noted Date Diagnosed Date [...] remission 06/14/2014 Overview: Dr Rodriges/ [facility] ADVANCE DIRECTIVE INFORMATION 10/13/2006 Overview: No, Advance Directive brochure offered , patient declined. Degeneration of lumbosacral intervertebral disc 02/19/2005 documented as of this encounter (statuses as of 04/11/2024) Resolved Problems Problem Noted Date Diagnosed Date [...] as of this encounter (statuses as of 04/11/2024) Immunizations Name Administration Dates Next Due COVID-19, [...] Telephone Encounter - Racquel Gallego RN - 04/11/2024 10:36 AM EDT Spoke to Anna- she called patient, he is agreeable to scheduling. * Telephone Encounter - Racquel Gallego RN - 04/11/2024 9:25 AM EDT [facility]: is patient still supposed to be scheduled for this? He doesn't seem to know about it? Please let us know TOSHA so that he can be scheduled tomorrow and Tuesday before auth expires. * Telephone Encounter - Beth Elliott OSA - 04/11/2024 9:22 AM EDT Called pt to schedule and Pt had no idea what I was trying to schedule with him. Let pt know someone would would be calling him to discuss what treatment/plan * Telephone Encounter - Racquel Gallego RN - 04/11/2024 9:06 AM EDT Barney plan is signed. Scheduling: please call patient to schedule for 2 day treatment tomorrow and Tuesday (since auth expires 04/15). He will need 4 hour appt "privigen" each day (may not be here that entire time, adding extra time since he has not received this here in a while). Thanks! * Telephone Encounter - Racquel Gallego RN - 04/10/2024 9:11 AM EDT Attempted to TT Dr Amaral- he is on do not disturb. [facility]: can you please get beacon plan signed by covering provider? Patient needs to be scheduled thisweek per auth, but have been unable to get beacon plan signed to get patient scheduled * Telephone Encounter - Racquel Gallego RN - 04/09/2024 7:44 AM EDT Barney still unsigned. Anna: can you please assist in getting beacon plan signed? Patient auth 04/15/24, cannot schedule until we have signed orders. * Telephone Encounter - Racquel Gallego RN - 04/06/2024 8:[address] Amaral: please sign beacon plan. Thanks! * Telephone Encounter - Racquel Gallego RN - 04/05/2024 8:40 AM EDT Referral updated- patient needs to receive infusions by 04/15/24. Barney plan is still not signed. Will need to be signed to schedule. Routed to Dr Amaral/ Anna Daniel to assist with getting this signed. * Telephone Encounter - Racquel Gallego RN - 04/03/2024 4:04 PM EDT Images from the original note were not included. "Anna Daniel RN [facility] Nurse Pool/Class; [facility] Hem/Onc Scheduling Pool/Class Please schedule patient for chemotherapy/immunotherapy as follows: Iv ig day 1 day 2 x 1 dose then will get every four weeks in the home after cycle 1 . Physician: Munir Desired Start Date: next week Treatment Medication: ivig day 1 day 2 Length of Treatment: 4 hours Precert Complete: yes Consent: yes New Treatment: no Port:no sure Labs: cbcd cmp immunoglobulin quantitative Teach: no Toxicity Check: no" Barney plan in place, routed for signature Barney plan states site of administration is [facility]- changed to [facility]. Once beacon plan is signed and auth is back, patient can be scheduled. documented in this encounter Plan of Treatment Upcoming Encounters Date Type Department Care Team (Late st Contact Info) Description 04/16/2024 10:30 AM EDT Scheduled [facility] [address] [facility] [place] [address] Yecenia Back, ALEXANDREN [address] [place] [address] 04/16/2024 2:30 PM EDT Telemedicine Hematology [facility] [address] [place] [address] Rosalio Amaral MD [address] [place] [address] 04/18/2024 10:00 AM EDT Home Visit [facility], [facility] [address] [place] [address] Sulma Seth, RN [address] [place] [address] 04/18/2024 11:20 AM EDT Office Visit Family Medicine [address] [place] [phone] Jaime Garcia MD [address] [place] [address] [place] [address] 04/19/2024 9:30 AM EDT Office Visit Cardiology [address] [place] [address] Tim Ruiz PA-C [address] [place] [address] 05/01/2024 2:30 PM EDT Home Visit [facility], [facility] [address] [address] Sulma Seth, RN [address] [place] [address] 05/11/2024 11:40 AM EDT Office Visit [facility] Disorders [facility] [address] [facility] [place] [phone] Tona Mondragon DO [address] [facility] [place] [address] 05/15/2024 2:00 PM EDT Telemedicine [facility] [address] [place] [address] Thierno Patel PA-C [address] [place] [address] 06/20/2024 3:00 PM EDT Telemedicine [facility]ology [facility] [address] [place] [address] Rosalio Amaral MD [address] [facility] [place] [address] 07/10/2024 9:30 AM EDT Office Visit Cardiology, [facility] [address] [facility] [place] [address] Beth Salter CRNP [address] [facility] [place] [address] 10/30/2024 1:45 PM EST Office Visit Urology, [facility] [address] [facility] [place] [address] Devyn Paniagua MD [address] [facility] [place] [address] 01/01/2025 10:20 AM EDT Office Visit [facility] [place] [address] Haley Aguero PA-C [address] [facility] [place] [address] Health Maintenance Due Date Last Done Comments [...] Additional history exists CKD PHOS USE SMARTSET 49328 03/09/202502/11, 03/08/2024, 03/07/2024, Additional history exists CKD HGB USE SMARTSET 21161 04/09/202504/09, 04/02/2024, 03/26/2024, Additional history exists DTaP,Tdap,and Td Vaccines (2 - Td or Tdap) 01/02/2029 01/02/2019 Colonoscopy 09/09/2031 09/09/2021, 08/13, 09/02/2017 Colorectal Cancer Screening 09/09/2031 Hepatitis B Vaccine Completed 11/20/2019, 06/21/2019, 05/22/2019 Zoster Vaccines Completed 09/30/2020, 07/31/2020 HIV Screening Completed 11/24/2023 Hepatitis C Screening Completed 11/24/2023 , 11/24/2023, 11/24/2023 HPV (Gardasil) Vaccine Aged Out No lo nger eligible based on patient's age to complete this topic MENINGOCOCCAL (MENACTRA/MENVEO) Aged Out No longer eligible based on patient's age to complete this topic documented as of this encounter Medical Devices Implanted Type Area Valve Grinder Device Identifier Shelf Expiration Date Model / Serial / Lot Port Power Mri W/8fr Cath - [id number] Implanted:Qty: 1 on 09/26/2020 by Simone Michelle MD at OR [facility] Right: Chest CR BARD : PERIPHERAL VASCULAR 10/12/2021 [id number] / / [id number] Description:right IJ Lens Intraoc 19.0 - [id number] - [id number] Implanted:Qty: 1 on 02/03/2021 by Chris Sexton MD at OR [facility] Right: Eye [employer] 09/11/2025 [id number] / [id number] / Lens Intraoc 19.0 - [id number] - [id number] Implanted:Qty: 1 on 02/24/2021 by Chris Sexton MD at OR [facility] Left: Eye [employer]OM[employer] 10/12/2025 [id number] / [id number] / [id number] System Urolift - [id number] Implanted:Qty: 2 on 03/17/2023 by Devyn Paniagua MD at OR [facility] N/A: Urethra [employer] 11/18/2023 [id number] / / [id number] System Urolift - [id number] Implanted:Qty: 3 on 03/17/2023 by Devyn Paniagua MD at OR [facility] N/A: Urethra [employer] 11/03/2023 [id number] / / [id number] documented as of this encounter Additional Health [...] and were consensually agreed upon. Care Teams Adjunct Trainer Relationship Specialty Start Date End Date Jaime Garcia MD [address] [place] [address] [place] [id number] PCP - General Family Medicine 10/15/20 documented as of this encounter
--- OUTSIDE RECORDS SUMMARY | 2024-05-13 05:59 | External Medical Summary | Summary of Care ---
Author Name Unknown Organization [facility] Address [address] [place] [address] Phone [phone] Care Team Providers Care Pen Tender Name Role Phone Jaime Garcia MD Primary Care Provide r Reason for Visit * Reason Comments IV Therapy Privigen. * Episode Based Medications (Routine) - Authorized Specialty Diagnoses / Procedures Referred By Darin t Referred To Contact Diagnoses Hypogammaglobulinemia (HCC) AL amyloidosis (HCC) Dehydration Multiple myeloma without remission (HCC) Procedures MO INJ IVIG PRIVIGEN 500 MG Rosalio Amaral MD [address] [place] [address] Anc Hem/Onc [address] [address] Referral ID Status Reason Start Date Expiration Date V isits Requested Visits Authorized [id number] Authorized 02/14/2024 04/15/2024 [id number] Encounter Details Date Type Department Care Team (Latest Contact Info) Description 04/12/2024 8:00 AM EDT Hem/Onc Treatment Hematology/Oncolo gy Treatment, [address] [phone] [place], Chair 1 Hem Onc [address] [address] Hypogammaglobulinemia (HCC)*; AL amyloidosis (HCC); Dehydration; Multiple myeloma without remission (HCC) Allergies Active Allergy Reactions Criticality Noted Date Comments Atorvastatin Muscle pain High 03/30/2019 Ezetimibe Muscle pain High 01/25/2020 documented as of this encounter (statuses as of 04/12/2024) Medications Medication Sig Dispensed Refills Start Date End Date Status CPAP every night at bedtime. Active oxygen IN GAS Use 2 L/min(Oxygen) as directed at bedtime. 1 Each 11/11/2020 Active OneWhitenoise [employer]uch Ultra Blue In Vitro Strip (Glucose Blood)Indications: [...] 6 mL 3 06/15/2023 4 Active Pen [place] 32G X 4 MM Use as directed. [...] morning. 180 Capsule 1 01/02/2024 Active Nystatin 076519 UNIT/ML Mouth/Throat SuspensionIndicati ons:Multiple myeloma in relapse [...] as of this encounter (statuses as of 04/12/2024) Active Problems Problem Noted Date Diagnosed Date [...] without remission 06/14/2014 Overview: Dr Rodriges/ [facility] DIRECTIVE INFORMATION 10/13/2006 Overview: No, Advance Directive brochure offered , patient declined. Degeneration of lumbosacral intervertebral disc 02/19/2005 documented as of this encounter (statuses as of 04/12/2024) Resolved Problems Problem Noted Date Diagnosed Date [...] as of this encounter (statuses as of 04/12/2024) Immunizations Name Administration Dates Next Due COVID-19, [...] Sign Reading Time Taken Comments Blood Pressure 112/76 04/12/2024 8:05 AM EDT Pulse 96 04/12/2024 8:05 AM EDT Temperature 36.1 C (97 F) 04/12/2024 8:05 AM EDT Respiratory Rate 18 04/12/2024 8:05 AM EDT Oxygen Saturation 94% 04/12/2024 8:05 AM EDT Inhaled Oxygen Concentration - - Weight - - Height - - Body Mass Index - - documented in this encounter Nursing Notes * Sandra Ren RN - 04/12/2024 10:19 AM EDT Goals: Patient will remain free from injury Possible barriers to meeting goals: Fall risk d/t ambulation with IV pole. Stability of the patient: Moderately unstable - medium risk of patient condition declining or worsening Summary regarding today's goals: Met: Patient remained free of injury. Patient left port accessed for treatment tomorrow, flushed with saline and heparin per order, locked and alcohol cap applied. Patient tolerated infusion well. Discharged in stable condition. * Sandra Ren RN - 04/12/2024 8:21 AM EDT Chair 10. Patient arrived for privigen with no acute complaints. VAD accessed. Patient instructed on use of heat and massage functions where applicable. Patient shown how to operate the heat function of the chair and to alert nursing staff if the chair feels too warm. Patient instructed on the risk of potential grimes while using the heat function. Safety and Risk for Injury Patient will remain free from injury. Ensure appropriate safety devices are available. Provide and maintain safe environment. documented in this encounter Plan of Treatment Upcoming Encounters Date Type Department Care Team (Late st Contact Info) Description 04/13/2024 12:00 PM EDT Hem/Onc Treatment Hematology/Oncology Treatment, [place] [address] [place] [address] [place], Chair 4 Hem Onc [place] [address] [place] [address] 04/16/2024 10:30 AM EDT Scheduled Telephone [facility], [facility] [address] [place] [address] Yecenia Back RDN [address] [place] [address] 04/16/2024 2:30 PM EDT Telemedicine Hematology [facility] [place] [address] [facility] [place] [address] Rosalio Amaral MD [address] [place] [address] 04/18/2024 10:00 AM EDT [facility] Visit [facility], [facility] [address] [place] [address] Sulma Seth, RN [address] [place] [address] 04/18/2024 11:20 AM EDT Office Visit Family Medicine [address] [place] [phone] Jaime Garcia MD [address] [place] [address] [place] [address] 04/19/2024 9:30 AM EDT Office Visit Cardiology [address] [place] [address] Tim Ruiz PAPageC [address] [place] [address] 05/01/2024 2:30 PM EDT Home Visit [facility] [place], [facility] [address] [place] [address] Sulma Seth, BOBBY [address] [facility] [place] [address] 05/11/2024 11:40 AM EDT Office Visit Sleep Disorders Ctr [facility] [address] [facility] [place] [phone] Tona Mondragon DO 132 [facility] [place] [address] 05/15/2024 2:00 PM EDT [facility] [address] [place] [address] Thierno Patel PA-C [address] [place] [address] 06/20/2024 3:00 PM EDT [facility]medicine [facility] [address] [place] [address] Rosalio Amaral MD [address] [place] [address] 07/10/2024 9:30 AM EDT Office Visit Cardiology, [facility] 132 [facility] [place] [address] Beth Salter CRNP 400 [facility] [place] [address] 10/30/2024 1:45 PM EST Office Visit Urology, [facility] [address] [facility] [place] [address] Devyn Paniagua MD [address] [place] [phone] 01/01/2025 10:20 AM EDT Office Visit Otolaryngology [facility] [address] [place] [address] Haley Aguero PA-C [address] [place] [address] Scheduled Orders Name Type Priority Associated Diagnoses Orde r Schedule CBC WITH WBC DIFFERENTIAL Lab STAT Hypogammaglobulinemia (HCC) AL amyloidosis (HCC) Dehydration Multiple myeloma without remission (HCC) Before Chemo for 5 Occurrences starting 04/12/2024 until 10/09/2024 COMPREHENSIVE METABOLIC PANEL Lab STAT Hypogammaglobulinemia (HCC) AL amyloidosis (HCC) Dehydration Multiple myeloma without remission (HCC) Before Chemo for 5 Occurrences starting 04/12/2024 until 10/09/2024 DIRECT IVONNE Lab STAT Hypogammaglobulinemia (HCC) AL amyloidosis (HCC) Dehydration Multiple myeloma without remission (HCC) Expected: 04/12/2024 (Approximate), Expires: 10/09/2024 HEPATITIS B SURFACE ANTIGEN Lab STAT Hypogammaglobulinemia (HCC) AL amyloidosis (HCC) Dehydration Multiple myeloma without remission (HCC) One Time for 1 Occurrences starting 04/12/2024 until 04/12/2024 HEPATITIS B CORE ANTIBODIES IGG AND IGM Lab STAT Hypogammaglobulinemia (HCC) AL amyloidosis (HCC) Dehydration Multiple myeloma without remission (HCC) One Time for 1 Occurrences starting 04/12/2024 until 04/12/2024 HEPATITIS B SURFACE ANTIBODY Lab STAT Hypogammaglobulinemia (HCC) AL amyloidosis (HCC) Dehydration Multiple myeloma without remission (HCC) One Time for 1 Occurrences starting 04/12/2024 until 04/12/2024 Health Maintenance Due Date Last Done Comments [...] Additional history exists CKD PHOS USE SMARTSET 18513 03/09/202502/11, 03/08/2024, 03/07/2024, Additional history exists CKD HGB USE SMARTSET 18757 04/09/202504/09, 04/02/2024, 03/26/2024, Additional history exists DTaP,Tdap,and [...] this encounter Medical Devices Implanted Type Area Workers Compensation Claims Supervisor Device Identifier Shelf Expiration Date Model / Serial / Lot Port Power Mri W/8fr Cath - [id number] Implanted:Qty: 1 on 09/26/2020 by Simone Michelle MD at OR [facility] Right: Chest CR BARD : PERIPHERAL VASCULAR 10/12/2021 [id number] / / [id number] Description:right IJ Lens Intraoc 19.0 - [id number] - [id number] Implanted:Qty: 1 on 02/03/2021 by Chris Sexton MD at OR [facility] Right: Eye [employer]USCH & LOMB 09/11/2025 [id number] / [id number] / Lens Intraoc 19.0 - [id number] - [id number] Implanted:Qty: 1 on 02/24/2021 by Chris Sexton MD at OR [facility] Left: Eye BAUSCH & LOMB 10/12/2025 [id number] / [id number] / [id number] System Urolift - [id number] Implanted:Qty: 2 on 03/17/2023 by Devyn Paniagua MD at OR [facility] N/A: Urethra [employer] 11/18/2023 [id number] / / [id number] System Urolift - [id number] Implanted:Qty: 3 on 03/17/2023 by Devyn Paniagua MD at OR [facility] N/A: Urethra [employer] 11/03/2023 [id number] / / [id number] documented as of this encounter Visit Diagnoses [...] previous infusion reaction with IVIG, Starting on Tue04/12/24 at 0915, Until Discontinued, Maximum of 4 grams (4000 mg) per day. Given 04/12/2024 8:18 AM EDT 650 mg Acetaminophen (Tylenol) tab 650 mg 650 mg, Oral, ONCE PRN or Chills, Starting on Tue04/12/24 at 0809, Until Tue04/13/24 at 0808, For 24 hours, Maximum of 4 grams (4000 mg) per day. Give 4 hrs after initial dose. diphenhydrAMINE (Benadryl) cap 25 mg 25 mg, Oral, ONCE PRN If previous infusion reaction with IVIG, Starting on Tue04/12/24 at 0915, Until Discontinued Given 04/12/2024 8:18 AM EDT 25 mg diphenhydrAMINE (Benadryl) cap 25 mg 25 mg, Oral, ONCE PRN Other, Fever/Chills, Starting on Tue04/12/24 at 0809, Until Tue04/13/24 at 0808, For 24 hours, Give 4 hrs after initial dose diphenhydrAMINE (Benadryl) inj 50 mg 50 mg, IV Push, ONCE PRN Other, Hypersensitivity Reaction, Starting on Tue04/12/24 at 0809, Until Tue04/13/24 at 0808, For 24 hours EPINEPHrine 1 MG/ML inj 0.3 mg 0.3 mg, Intramuscular, ONCE PRN Other, Hypersensitivity Reaction or Anaphylaxis, Starting on Tue04/12/24 at 0809, Until Tue04/13/24 at 0808, For 24 hours hEParin 100 UNIT/ML Lock Flush inj 500 Units 500 Units (5 mL), IV Lock, PRN Other, IV Flush, Starting on Tue04/12/24 at 0809, Until Tue04/13/24 at 0808, For 24 hours, Do not flush if lock, PICC, or central line not in place; IV infusing or unable to flush. Given 04/12/2024 10:03 AM EDT 500 Units Hydrocortisone Sod Suc (PF) (Solu-Cortef) inj 100 mg 100 mg, IV Push, ONCE PRN Other, Hypersensitivity Reaction, Starting on Tue04/12/24 at 0809, Until Tue04/13/24 at 0808, For 24 hours NSS infusion 500 mL, Intravenous, at 50 mL/hr, CONTINUOUS, Starting on Tue04/12/24 at 0915, Until Tue04/12/24 at 1914 Start Infusion 04/12/2024 8:18 AM EDT 500 mL 50 mL/hr oxygen GAS Inhalation, OXYGEN, First dose on Tue04/12/24 at 0845, Until Discontinued, Device/Managed by: Low Flow Device, [...] Push, PRN Other, IV Flush, Starting on Tue04/12/24 at 0809, Until Tue04/13/24 at 0808, For 24 hours, Do not flush if lock, PICC, or central line not in place; IV infusing or unable to flush. Given 04/12/2024 10:03 AM EDT 10 mL Inactive Administered Medications - up to 3 most recent administrations Medication Order MAR Action Action Date Dose Rate Site Immune Globulin Human-IVIG 10% (Privigen) IV 10 g 10 g, IV Piggyback, ONCE, 1 dose, On Tue04/12/24 at 0945, Total dose = 15 g Dispensed as [...] Infusion duration = 1.2 hours Rate Change 04/12/2024 9:45 AM EDT 340 mL/hr Start Infusion 04/12/2024 9:38 AM EDT 10 g 170 mL/hr Immune Globulin Human-IVIG 10% (Privigen) IV 5 g 5 g, IV Piggyback, ONCE, 1 dose, On Patria 04/12/24 at 0945, Total dose = 15 g Dispensed as [...] Infusion duration = 1.2 hours Rate Change 04/12/2024 9:28 AM EDT 170 mL/hr Rate Change 04/12/2024 9:09 AM EDT 85 mL/hr Rate Change 04/12/2024 8:53 AM EDT 42 mL/hr documented in this encounter Additional Health [...] and were consensually agreed upon. Care Teams Pen Tender Relationship Specialty Start Date End Date Jaime Garcia MD [address] [place] [address] [place] [phone] PCP - General Family Medicine 10/15/20 documented as of this encounter
--- OUTSIDE RECORDS SUMMARY | 2024-05-13 05:59 | External Medical Summary | Summary of Care ---
Author Name Unknown Organization [facility] Address [address] [place] [address] Phone [phone] Care Team Providers Care Sustainable Agriculture Specialist Name Role Phone Jaime Garcia MD Primary Care Provide r Reason for Visit * Reason Onset Date Comments Appointment 04/03/2024 Encounter Details Date Type Department Care Team (Late st Contact Info) Description 04/03/2024 Telephone Hematology/Oncology Treatment, [place] [address] [place] [phone] Rosalio Amaral MD [address] [place] [address] Appointment Allergies Active Allergy Reactions Criticality Noted Date Comments Atorvastatin Muscle pain High 03/30/2019 Ezetimibe Muscle pain High 01/25/2020 documented as of this encounter (statuses as of 04/11/2024) Medications Medication Sig Dispensed Refills Start Date End Date Status CPAP every night at bedtime. Active oxygen IN GAS Use 2 L/min(Oxygen) as directed at bedtime. 1 Each 1 Active nanoMRTouch Ultra Blue In Vitro Strip (Glucose Blood)Indications:T [...] mL 3 3 06/14/20 24 Active Pen [place] 32G X 4 MM Use as directed. [...] than 7.0% ([facility]) take two tablets by mouth in the morning 180 Tablet 1 4 Active DULoxetine HCl 20 MG Oral Capsule Delayed Release Particles (Cymbalta) Take 2 Capsules by mouth in the morning. 180 Capsule 1 4 Active Nystatin 122315 UNIT/ML Mouth/Throat SuspensionIndicatio ns:Multiple myeloma in relapse ([facility]) Swish and swallow 5 mL [...] that he can be scheduled tomorrow and Matthew before auth expires. * Telephone Encounter - Beth Elliott OSA - 04/11/2024 9:22 AM EDT Called pt to schedule and Pt had no idea what I was trying to schedule with him. Let pt know someone would would be calling him to discuss what treatment/plan * Telephone Encounter - Racquel Gallego RN - 04/11/2024 9:06 AM EDT Pattison plan is signed. Scheduling: please call patient [...] Gallego RN - 04/09/2024 7:44 AM EDT Pattison still unsigned. Anna: can you please assist in getting beacon plan signed? Patient auth 04/15/24, cannot schedule until we have signed orders. * Telephone Encounter - Racquel Gallego RN - 04/06/2024 8:[address] Amaral: please sign beacon plan. Thanks! * Telephone Encounter - Racquel Gallego RN - 04/05/2024 8:40 AM EDT Referral updated- patient needs to receive infusions by 04/15/24. Pattison plan is still not signed. Will need to be signed to schedule. Routed to Dr Amaral/ Anna Daniel to assist with getting this signed. * Telephone Encounter - Racquel Gallego RN - 04/03/2024 4:04 PM EDT Images from the original note were not included. "Anna Daniel RN [facility] [place] Hem/Onc Nurse Pool/Class; [facility] [place] Hem/Onc Scheduling Pool/Class Please schedule patient for [...] immunoglobulin quantitative Teach: no Toxicity Check: no" Pattison plan in place, routed for signature Pattison plan states site of administration is [facility]- changed to [facility]. Once beacon plan is signed and auth is back, patient can be scheduled. documented in this encounter Plan of Treatment Upcoming Encounters Date Type Department Care Team (Late st Contact Info) Description 04/16/2024 10:30 AM EDT [facility] [address] [place] [address] Yecenia Back, ALEXANDREN [address] [facility] [place] [address] 04/16/2024 2:30 PM EDT Telemedicine Hematology [facility] [place] [place] [address] [facility] [place] [address] Rosalio Amaral MD [address] [facility] [place] [address] 04/18/2024 10:00 AM EDT [facility] Visit [facility], [facility] [address] [address] Sulma Seth, BOBBY [address] [place] [address] 04/18/2024 11:20 AM EDT Office Visit Family Medicine [address] [place] [phone] Jaime Garcia MD [address] [place] [address] [place] [address] 04/19/2024 9:30 AM EDT Office Visit Cardiology [address] [place] [address] Tim Ruiz PA-C [address] [place] [address] 05/01/2024 2:30 PM EDT [facility] [address] [place] [address] Sulma Seth, BOBBY [address] [place] [address] 05/11/2024 11:40 AM EDT Office Visit Sleep Disorders Ctr [facility] [address] [place] [phone] Tona Mondragon DO [address] [place] [address] 05/15/2024 2:00 PM EDT Telemedicine [facility] [address] [facility] [place] [address] Thierno Patel PA-C [address] [facility] [place] [address] 06/20/2024 3:00 PM EDT Telemedicine [facility] [address] [facility] [place] [address] Rosalio Amaral MD [address] [facility] [place] [address] 07/10/2024 9:30 AM EDT Office Visit Cardiology, [facility] [address] [facility] [place] [address] Beth Salter CRNP [address] [facility] [place] [address] 10/30/2024 1:45 PM EST Office Visit Urology, [facility] [address] [facility] [place] [address] Devyn Paniagua MD 27 [facility] [place] [address] 01/01/2025 10:20 AM EDT Office Visit Otolaryngology [facility] [address] [facility] [place] [address] Haley Aguero PA-C 132 [facility] [place] [address] Health Maintenance Due Date Last Done Comments Cologuard 2015 Fecal Occult Blood Test 2015 Sigmoidoscopy 2015 Depression Screening 01/05/2022 01/05/2021 Diabetic Foot Exam 12/14/2022 12/14/2021, 0 10/15/2020, 06/25/2019 COVID-19 Vaccine (4 - 2023-24 season) 2023 10/06/2021, 06/24/2021, 06/23/2021 HbA1c 01/05/2024 [...] Additional history exists CKD PHOS USE SMARTSET 36170 03/09/202502/11, 03/08/2024, 03/07/2024, Additional history exists CKD HGB USE SMARTSET 04860 04/09/202504/09, 04/02/2024, 03/26/2024, Additional history exists DTaP,Tdap,and [...] this encounter Medical Devices Implanted Type Area Surveillance Officer Device Identifier Shelf Expiration Date Model / Serial / Lot Port Power Mri W/8fr Cath - [id number] Implanted:Qty: 1 on 09/26/2020 by Simone Michelle MD at OR [facility] Right: Chest CR BARD : PERIPHERAL VASCULAR 10/12/2021 [id number] / / [id number] Description:right IJ Lens Intraoc 19.0 - [id number] - [id number] Implanted:Qty: 1 on 02/03/2021 by Chris Sexton MD at OR [facility] Right: Eye [employer] LOMB 09/11/2025 [id number] / [id number] / Lens Intraoc 19.0 - [id number] - [id number] Implanted:Qty: 1 on 02/24/2021 by Chris Sexton MD at OR [facility] Left: Eye BAUSCH & LOMB 10/12/2025 [id number] / [id number] / [id number] System Urolift - [id number] Implanted:Qty: 2 on 03/17/2023 by Devyn Paniagua MD at OR [facility] N/A: Urethra [employer] 11/18/2023 [id number] / / [id number] System Urolift - [id number] Implanted:Qty: 3 on 03/17/2023 by Devyn Paniagua MD at OR [facility] N/A: Urethra [employer] 11/03/2023 [id number] / / [id number] documented as of this encounter Additional Health [...] and were consensually agreed upon. Care Teams Sustainable Agriculture Specialist Relationship Specialty Start Date End Date Jaime Garcia MD [address] [place] [address] [place] [phone] PCP - General Family Medicine 10/15/20 documented as of this encounter
--- OUTSIDE RECORDS SUMMARY | 2024-05-13 05:59 | External Medical Summary | Summary of Care ---
Author Name Unknown Organization [facility] Address [address] [place] [address] Phone [phone] Care Team Providers Care Skin Installer Name Role Phone Jaime Garcia MD Primary Care Provide r Reason for Visit * Reason Onset Date Comments Home Health 04/09/2024 Encounter Details Date Type Department Care Team (Late st Contact Info) Description 04/09/2024 Telephone Family Medicine [address] [phone] Jaime Garcia MD [address] [place] [address] [place] [address] Home Health Allergies Active Allergy Reactions Criticality Noted Date [...] 6 mL 3 06/15/2023 4 Active Pen Dixie 32G X 4 MM Use as directed. [...] long-term current use of insulin ([facility]) Use as directed to check [...] goal of less than 7.0% ([facility]) take two tablets by mouth in the morning 180 Tablet 1 01/04/2024 Active DULoxetine HCl 20 MG Oral Capsule Delayed Release Particles (Cymbalta) Take 2 Capsules by mouth in the morning. 180 Capsule 1 01/02/2024 Active Nystatin 091806 UNIT/ML Mouth/Throat SuspensionIndicati ons:Multiple myeloma in relapse ([facility]) Swish and swallow 5 mL in the morning and 5 mL at noon and 5 mL in the evening and 5 mL before bedtime. 60 mL 1 01/02/2024 Active Additional Information Patient not taking.Reported on 04/06/2024 Magnesium Chloride 64 MG Oral Tablet Delayed Release (Mag64)Indications :Multiple myeloma in relapse ([facility]) Take 1 Tablet by mouth [...] myeloma without remission 06/14/2014 Overview: Dr Rodriges/ [facility] DIRECTIVE INFORMATION 10/13/2006 Overview: No, Advance [...] encounter Miscellaneous Notes * Telephone Encounter - Natasha Aguilar RN - 04/13/2024 10:54 AM EDT Patient states his sob is much better when he takes the torsemide Patient advice to take every other day and bloodwork on Tue when he comes in for his appointment. I do see a CMP standing in [facility]. * Telephone Encounter - Jaime Garcia MD - 04/10/2024 1:07 PM EDT Can we ask the pt when he took torsemide did his SOB improve? If it is Torsemide every other day for 1 week and repeat BMP during the clinic visit * Telephone Encounter - Ellyn Lyn CMA - 04/09/2024 2:32 PM EDT Torsemide PRN- last one was a couple days ago and that was the first one in a couple weeks. No swelling, weight is stable; fluctuates within 3-4 pounds No fever. Hospital F/U 04/18/2024 11:20 * Telephone Encounter - Jaime Garcia MD - 04/09/2024 10:29 AM EDT Pls call the pt - How often are you taking your torsemide - any worsening leg swelling or weight gain - any fever? - also recommend a clinic visit with me (40 mins pls) Clinical note: -pt had a prolonged hospital course due to adrenal insufficiency and cytokine release syndrome - have not seen him since hospital discharge * Telephone Encounter - Sarika Gomez LPN - 04/09/2024 8:46 AM EDT HH Concerns Alcira RN, Calling from: Tony Report/Concerns of: See Below Vitals: T 96.9 P 90 RR 18 BP 100/60 SP O2 95% RA Lung sounds Diminished Weight 140 Blood sugar 189 No Pain Narrative: Alcira calling in with patient at the time of call. Patient is reporting increased weakness/fatigue, needing more rest breaks. Lungs are diminished, getting more SOB, he is taking his PRN fluid pill and has been using his Oxygen. Yesterday he had some nausea and the day before he had vomited twice, he is taking his compazine. Symptoms seemed to worsen over the last week. He is not tolerating food well and Alcira advised that he talk to Oncology on Wednesday about an appetite stimulant. Please advise Call back patient with any advice or recommendations. documented in this encounter Plan of Treatment Upcoming Encounters Date Type Department Care Team (Late st Contact Info) Description 04/13/2024 12:00 PM EDT Hem/Onc Treatment Hematology/Oncology Treatment, [place] [address] [facility] [place] [phone] Batool, Chair 4 Hem Onc Scenery [address] [place] [place] [address] 04/16/2024 10:30 AM EDT Scheduled Telephone [facility], [facility] [address] [facility] [place] [address] Yecenia Back RDN [address] [facility] [place] [address] 04/16/2024 2:30 PM EDT Telemedicine [facility] [address] [facility] [place] [address] Rosalio Amaral MD [address] [facility] [place] [address] 04/18/2024 10:00 AM EDT Home Visit [facility], [facility] 132 [facility] [place] [address] Sulma Seth, BOBBY 132 [facility] [place] [address] 04/18/2024 11:20 AM EDT Office Visit Family Medicine [address] [place] [phone] Jaime Garcia MD [address] [place] [address] [place] [address] 04/19/2024 9:30 AM EDT Office Visit Cardiology [address] [place] [address] Tim Ruiz PA-C [address] [place] [address] 05/01/2024 2:30 PM EDT Home Visit [facility], [facility] 132 [facility] [place] [address] Sulma Seth, BOBBY 132 [facility] [place] [address] 05/11/2024 11:40 AM EDT Office Visit Sleep Disorders [facility] [address] [place] [phone] Tona Mondragon DO [address] [place] [address] 05/15/2024 2:00 PM EDT Telemedicine H[facility]ology [facility] Tyree Jordan [address] [place] [address] Thierno Patel PA-C [address] [place] [address] 06/20/2024 3:00 PM EDT Telemedicine H[facility]ology [facility] Tyree UGARTE [address] [place] [address] Rosalio Amaral MD [address] [place] [address] 07/10/2024 9:30 AM EDT Office Visit Cardiology, [facility] [place] [address] Beth Salter CRNP [address] [place] [address] [place] [address] 10/30/2024 1:45 PM EST Office Visit Urology, [facility] [address] [place] [address] Devyn Paniagua MD [address] [place] [address] 01/01/2025 10:20 AM EDT Office Visit Otolaryngology [facility] 132 [place] [address] Haley Aguero PA-C 132 [place] [address] Health Maintenance Due Date Last Done Comments [...] Additional history exists CKD PHOS USE SMARTSET 24712 03/09/202502/11, 03/08/2024, 03/07/2024, Additional history exists CKD HGB USE SMARTSET 17105 04/09/202504/09, 04/02/2024, 03/26/2024, Additional history exists DTaP,Tdap,and [...] this encounter Medical Devices Implanted Type Area Hotel Director Device Identifier Shelf Expiration Date Model / Serial / Lot Port Power Mri W/8fr Cath - [id number] Implanted:Qty: 1 on 09/26/2020 by Simone Michelle MD at OR [facility] Right: Chest CR BARD : PERIPHERAL VASCULAR 10/12/2021 [id number] / / [id number] Description:right IJ Lens Intraoc 19.0 - [id number] - [id number] Implanted:Qty: 1 on 02/03/2021 by Chris Sexton MD at OR [facility] Right: Eye [employer] LOMB 09/11/2025 [id number] / [id number] / Lens Intraoc 19.0 - [id number] - [id number] Implanted:Qty: 1 on 02/24/2021 by Chrsi Sexton MD at OR [facility] Left: Eye BAUSCH & LOMB 10/12/2025 [id number] / [id number] / [id number] System Urolift - [id number] Implanted:Qty: 2 on 03/17/2023 by Devyn Paniagua MD at OR [facility] N/A: Urethra [employer] 11/18/2023 [id number] / / [id number] System Urolift - [id number] Implanted:Qty: 3 on 03/17/2023 by Devyn Paniagua MD at OR [facility] N/A: Urethra [employer] 11/03/2023 [id number] / / [id number] documented as of this encounter Additional Health [...] and were consensually agreed upon. Care Teams Skin Installer Relationship Specialty Start Date End Date Jaime Garcia MD [address] [place] [address] [place] [address] PCP - General Family Medicine 10/15/20 documented as of this encounter
--- OUTSIDE RECORDS SUMMARY | 2024-05-13 05:59 | External Medical Summary | Summary of Care ---
Author Name Unknown Organization [facility] Address [address] [place] [address] Phone [phone] Care Team Providers Care Manager Of Photography Name Role Phone Jaime Garcia MD Primary Care Provide r Reason for Visit * Reason Onset Date Comments Nurse Documentation 04/11/2024 Encounter Details Date Type Department Care Team (Late st Contact Info) Description 04/11/2024 Telephone Hematology [facility]cology [facility] [place] Formerly named [facility] [address] Anna Daniel, RN Nurse Documentation Allergies Active Allergy Reactions Criticality Noted Date [...] 6 mL 3 06/15/2023 4 Active Pen Corrigan 32G X 4 MM Use as directed. [...] of less than 7.0% ([facility]) take two tablets by mouth in the morning 180 Tablet 1 01/04/2024 Active DULoxetine HCl 20 MG Oral Capsule Delayed Release Particles (Cymbalta) Take 2 Capsules by mouth in the morning. 180 Capsule 1 01/02/2024 Active Nystatin 246382 UNIT/ML Mouth/Throat SuspensionIndicati ons:Multiple myeloma in relapse ([facility]) Swish and swallow 5 mL in the morning and 5 mL at noon and 5 mL in the evening and 5 mL before bedtime. 60 mL 1 01/02/2024 Active Additional Information Patient not taking.Reported on 04/06/2024 Magnesium Chloride 64 MG Oral Tablet Delayed Release (Mag64)Indications :Multiple myeloma in relapse ([facility]) Take 1 Tablet by mouth in the [...] Telephone Encounter - Anna Daniel RN - 04/11/2024 10:39 AM EDT Call placed to patient he is aware that [facility] needed him to have two infusions [facility] and then he would get it in the home.Pt verbalized understanding and is agreeable to infusion. I spoke to Racquel nurse at [facility] she will get patient rescheduled. documented in this encounter Plan of Treatment Upcoming Encounters Date Type Department Care Team (Late st Contact Info) Description 04/12/2024 8:00 AM EDT Hem/Onc Treatment Hematology/Oncology Treatment, [place] [facility] [place] [phone] Batool, Chair 1 Hem Onc Scenery 200 [facility] [place] [address] 04/13/2024 12:00 PM EDT Hem/Onc Treatment Hematology/Oncology Treatment, [place] 200 [facility], [place] [phone] Park, Chair 4 Hem Onc Scenery 200 [facility] [place], [place] [address] 04/16/2024 10:30 AM EDT Scheduled Telephone [facility], [facility] [address] [facility] [place] [address] Yecenia Back RDN [address] [facility] [place] [address] 04/16/2024 2:30 PM EDT Telemedicine Hematology [facility] Tyree UGARTE [address] [place] [address] Rosalio Amaral MD [address] [facility] [place] [address] 04/18/2024 10:00 AM EDT [facility] 132 [facility] [place] [address] Sulma Seth RN 132 [facility] [place] [address] 04/18/2024 11:20 AM EDT Office Visit Family Medicine [address] [place] [phone] Jaime Garcia MD [address] [place] [address] [place] [address] 04/19/2024 9:30 AM EDT Office Visit Cardiology [address] [place] [address] Tim Ruiz PAPageC [address] [place] [address] 05/01/2024 2:30 PM EDT [facility] [address] [facility] [place] [address] Sulma Seth, OBBBY 132 [facility] [place] [address] 05/11/2024 11:40 AM EDT Office Visit Sleep Disorders Ctr [facility] 132 [facility] [place] [phone] Tona Mondragon DO 132 [facility] [place] [address] 05/15/2024 2:00 PM EDT Telemedicine [facility]ology [facility] [address] [facility] [place] [address] Thierno Patel PA-C [address] [facility] [place] [address] 06/20/2024 3:00 PM EDT Telemedicine [facility]ology [facility] [address] [facility] [place] [address] Rosalio Amaral MD [address] [facility] [place] [address] 07/10/2024 9:30 AM EDT Office Visit Cardiology, [facility] 132 [facility] [place] [address] Beth Salter CRNP [address] [place] [address] [place] [address] 10/30/2024 1:45 PM EST Office Visit Urology, [facility] [address] [place] [address] Devyn Paniagua MD [address] [place] [address] 01/01/2025 10:20 AM EDT Office Visit Otolaryngology [facility] [address] [place] [address] Haley Aguero PA-C [address] [place] [address] Health Maintenance Due Date Last Done Comments Cologuard 2015 Fecal Occult Blood Test 2015 Sigmoidoscopy 2015 Depression Screening 01/05/2022 01/05/2021 Diabetic Foot Exam 12/14/2022 12/14/2021, 0 10/15/2020, 06/25/2019 COVID-19 Vaccine ( season) 2023 10/06/2021, 06/24/2021, 06/23/2021 HbA1c 01/05/2024 07/06/2023, 0811/2022, 03/29/2023, Additional history exists Influenza Vaccine (FLU [...] Additional history exists CKD PHOS USE SMARTSET 69683 03/09/202502/11, 03/08/2024, 03/07/2024, Additional history exists CKD HGB USE SMARTSET 65808 04/09/202504/09, 04/02/2024, 03/26/2024, Additional history exists DTaP,Tdap,and [...] this encounter Medical Devices Implanted Type Area Help Aid Device Identifier Shelf Expiration Date Model / Serial / Lot Port Power Mri W/8fr Cath - [id number] Implanted:Qty: 1 on 09/26/2020 by Simone Michelle MD at OR [facility] Right: Chest CR BARD : PERIPHERAL VASCULAR 10/12/2021 [id number] / / [id number] Description:right IJ Lens Intraoc 19.0 - [id number] - [id number] Implanted:Qty: 1 on 02/03/2021 by Chris Sexton MD at OR [facility] Right: Eye BAUSCH [employer] LOMB 09/11/2025 [id number] / [id number] / Lens Intraoc 19.0 - [id number] - [id number] Implanted:Qty: 1 on 02/24/2021 by Chris Sexton MD at OR [facility] Left: Eye BAUSCH & LOMB 10/12/2025 [id number] / [id number] / [id number] System Urolift - [id number] Implanted:Qty: 2 on 03/17/2023 by Devyn Paniagua MD at OR [facility] N/A: Urethra [employer] 11/18/2023 SW875-3 / / [id number] System Urolift - [id number] Implanted:Qty: 3 on 03/17/2023 by Devyn Paniagua MD at OR [facility] N/A: Urethra [employer] 11/03/2023 UP401-2 / / [id number] documented as of this encounter Additional Health [...] consensually agreed upon. Care Teams Manager Of Photography Relationship Specialty Start Date End Date Jaime Garcia MD [address] [place] [address] [place] [address] PCP - General Family Medicine 10/15/20 documented as of this encounter
--- OUTSIDE RECORDS SUMMARY | 2024-05-13 05:59 | External Medical Summary | Summary of Care ---
Author Name Unknown Organization [facility] Address [address] [place] [address] Phone [phone] Care Team Providers Care Distributor Sales Manager Name Role Phone Jaime Garcia MD Primary Care Provide r Encounter Details Date Type Department Care Team (Late st Contact Info) Description 04/11/2024 Orders Only Hematology/Oncology [facility] [address] [place] [phone] Rosalio Amaral MD [address] [place] [phone] Multiple myeloma without remission (HCC)* Allergies Active Allergy Reactions Criticality Noted [...] than 7.0% ([facility]) Use as directed daily. Test once daily DxE11.9 100 Strip 5 03/02/2021 Active LancetsIndications :Type 2 diabetes mellitus with hemoglobin A1c goal of less than 7.0% ([facility]) Test once daily DxE11.9. 100 [...] 6 mL 3 06/15/2023 4 Active Pen Wood 32G X 4 MM Use as directed. [...] than 7.0% ([facility]) take two tablets by mouth in the morning 180 Tablet 1 01/04/2024 Active DULoxetine HCl 20 MG Oral Capsule Delayed Release Particles (Cymbalta) Take 2 Capsules by mouth in the morning. 180 Capsule 1 01/02/2024 Active Nystatin 559067 UNIT/ML Mouth/Throat SuspensionIndicati ons:Multiple myeloma in relapse ([facility]) Swish and swallow 5 mL in the morning and 5 mL at noon and 5 mL in the evening and 5 mL before bedtime. 60 mL 1 01/02/2024 Active Additional Information Patient not taking.Reported on 04/06/2024 Magnesium Chloride 64 MG Oral Tablet Delayed Release (Mag64)Indications :Multiple myeloma in relapse ([facility]) Take 1 Tablet by mouth [...] 8:00 AM EDT Hem/Onc Treatment Hematology/[address], [address] [phone] Batool, Chair 1 Hem Onc [place] [address] [place] [address] 04/13/2024 12:00 PM EDT Hem/Onc Treatment Hematology/Oncology Treatment, [place] 200 [facility] [place] [phone] Batool, Chair 4 Hem On[address] [place] [address] 04/16/2024 10:30 AM EDT Scheduled Telephone [facility], [facility] [address] [facility] [place] [address] Yecenia Back RDN [address] [facility] [place] [address] 04/16/2024 2:30 PM EDT Telemedicine Hematology [facility]cology [facility] [place] [address] [place] [address] Rosalio Amaral MD [address] [facility] [place] [address] 04/18/2024 10:00 AM EDT [facility] Visit [facility], [facility] 132 [place] [address] Sulma Seth RN [address] [place] [address] 04/18/2024 11:20 AM EDT Office Visit Family Medicine [address] [place] [phone] Jaime Garcia MD [address] [place] [address] [place] [address] 04/19/2024 9:30 AM EDT Office Visit Cardiology [address] [place] [address] Tim Ruiz PA-C [address] [place] [address] 05/01/2024 2:30 PM EDT Home Visit [facility], [facility] [address] [place] [address] Sulma Seth, BOBBY 132 [place] [address] 05/11/2024 11:40 AM EDT Office Visit Sleep Disorders Ctr [facility] 132 [facility] [place] [phone] Tona MondragonareDO sania [address] [place] [address] 05/15/2024 2:00 PM EDT Telemedicine [facility] [address] [place] [address] Thierno Patel PA-C [address] [place] [address] 06/20/2024 3:00 PM EDT Telemedicine [facility] [address] [place] [address] Rosalio Amaral MD [address] [place] [address] 07/10/2024 9:30 AM EDT Office Visit Cardiology, [facility] 132 [facility] [place] [address] Beth Salter CRNP [address] [place] [address] [place] [address] 10/30/2024 1:45 PM EST Office Visit Urology, [facility] 132 [facility] [place] [address] Devyn Paniagua MD [address] [place] [address] [place] [address] 01/01/2025 10:20 AM EDT Office Visit Otolaryngology [facility] 132 [facility] [place] [address] Haley Aguero PA-C [address] [place] [address] Health Maintenance Due Date Last Done Comments [...] Additional history exists CKD PHOS USE SMARTSET 91433 03/09/202502/11, 03/08/2024, 03/07/2024, Additional history exists CKD HGB USE SMARTSET 73587 04/09/202504/09, 04/02/2024, 03/26/2024, Additional history exists DTaP,Tdap,and [...] this encounter Medical Devices Implanted Type Area Synchronizer Device Identifier Shelf Expiration Date Model / Serial / Lot Port Power Mri W/8fr Cath - [id number] Implanted:Qty: 1 on 09/26/2020 by Simone Michelle MD at OR [facility] Right: Chest CR BARD : PERIPHERAL VASCULAR 10/12/2021 [id number] / / [id number] Description:right IJ Lens Intraoc 19.0 - [id number] - [id number] Implanted:Qty: 1 on 02/03/2021 by Chris Sexton MD at OR [facility] Right: Eye BAUSCH & LOMB 09/11/2025 [id number] / [id number] / Lens Intraoc 19.0 - [id number] - [id number] Implanted:Qty: 1 on 02/24/2021 by Chris Sexton MD at OR [facility] Left: Eye BAUSCH & LOMB 10/12/2025 [id number] / [id number] System Urolift - [id number] Implanted:Qty: 2 on 03/17/2023 by Devyn Paniagua MD at OR [facility] N/A: Urethra [employer] 11/18/2023 PR140-3 / / [id number] System Urolift - [id number] Implanted:Qty: 3 on 03/17/2023 by Devyn Paniagua MD at OR [facility] N/A: Urethra [employer] 11/03/2023 EE105-5 / / [id number] documented as of this encounter Visit Diagnoses Diagnosis Multiple myeloma without remission (HCC)- Primary Multiple myeloma, without mention of [...] and were consensually agreed upon. Care Teams Distributor Sales Manager Relationship Specialty Start Date End Date Jaime Garcia MD [address] [place] [address] [place] [address] PCP - General Family Medicine 10/15/20 documented as of this encounter
--- OUTSIDE RECORDS SUMMARY | 2024-05-13 05:59 | External Medical Summary | Summary of Care ---
Author Name Unknown Organization [facility] Address [address] [place] [address] Phone [phone] Care Team Providers Care Classroom Teacher Name Role Phone Jaime Garcia MD Primary Care Provide r Reason for Visit * Reason Comments Follow Up * Evaluate & Treat - Unlimited Visits (Within 10 days (routine)) - Authorized Specialty Diagnoses / Procedures Referred By Contact Referred To Contact Cardiac Electrophysiology / Cardiology Diagnoses Cardiac amyloidosis (HCC) NSVT (nonsustained ventricular tachycardia) (HCC) Beth Gibbs CRNP [address] [facility] [place] [address] Referral ID Status Reason Start Date Expiration Date Visits Requested Visits Authorized [id number] Authorized Specialty Services Required 02/10/[phone] Encounter Details Date Type Department Care Team (Late st Contact Info) Description 04/06/2024 9:30 AM EDT Office Visit Cardiology, [facility] [address] [facility] [place] [address] Beth Salter CRNP [address] [facility] [place], [place] [phone] Cardiac amyloidosis (HCC)*; NSVT (nonsustained ventricular tachycardia) (HCC); Orthostatic hypotension; Chronic diastolic congestive heart failure (HCC); Dyslipidemia, goal LDL below 70 Allergies Active Allergy Reactions Criticality Noted Date Comments Atorvastatin Muscle pain High 03/30/2019 Ezetimibe Muscle pain High 01/25/2020 documented as of this encounter (statuses as of 04/13/2024) Medications Medication Sig Dispensed Refills Start Date End Date Status CPAP every night at bedtime. Active oxygen IN GAS Use 2 L/min(Oxygen) as directed at bedtime. 1 Each 1 Active Affymaxuch Ultra Blue In Vitro Strip (Glucose Blood)Indications:T [...] mL 3 3 06/14/20 24 Active Pen [place] 32G X 4 MM Use as directed. [...] 7.0% ([facility]) take two tablets by mouth in the morning 180 Tablet 1 4 Active DULoxetine HCl 20 MG Oral Capsule Delayed Release Particles (Cymbalta) Take 2 Capsules by mouth in the morning. 180 Capsule 1 4 Active Nystatin 600093 UNIT/ML Mouth/Throat SuspensionIndicatio ns:Multiple myeloma in relapse [...] Sign Reading Time Taken Comments Blood Pressure 120/82 04/06/2024 9:35 AM EDT Pulse 88 04/06/2024 9:35 AM EDT Temperature - - Respiratory Rate 14 04/06/2024 9:35 AM EDT Oxygen Saturation 97% 04/06/2024 9:35 AM EDT Inhaled Oxygen Concentration - - Weight 64.4 kg (141 lb 14.4 oz) 04/06/2024 9:35 AM EDT Height - - Body Mass Index 20.95 12/29/2023 9:09 AM EDT documented in this encounter Progress Notes * Paty Dee DO - 04/13/2024 2:50 PM EDT I have reviewed the advanced practitioner's documentation on the date of service referenced in note, and I agree with, and take responsibility for the plan of care. Pt returns to EP for routine 6 month f/u due to pAF and amyloidosis His amio was stopped due to leg weakness but symptoms did not improve off the amio and he started having more palpitations and arrhythmias He continues to be treated at [facility] for his amyloidosis He has had hospitalizations most recent was in February after syncope due to orthostatic hypotension He continues to feel week and fatigued Recommend restarting amio He needs to take his torsemide Try to use CPAP EP f/u 3 months Paty Dee DO Department of Cardiology [facility] [place] [address] documented in this encounter Nursing Notes * Daphnie Dey CMA - 04/06/2024 9:27 AM EDT Chief Complaint Patient presents with Follow Up Examination Room: 16 Name: Jerardo Ochoa Date of : (1970). Reason for Visit: EP FU Interim Hospitalization(s): [facility] cancer tx February 12. Problems/Concerns: Fullness in chest, right side. Feels like breathing is "diminished" Chest Pain/SOB: Yes, fullness in chest causing some SOB [facility] Discussed: Yes My [...] AM EDT Scheduled Telephone [facility], [facility] [address] [facility] [place] [address] [address]N [address] [facility] [place] [address] 04/16/2024 2:30 PM EDT Telemedicine Hematology [facility] BE[facility] [address] [facility] [place] [address] Rosalio Amaral MD [address] [facility] [place] [address] 04/18/2024 10:00 AM EDT Home Visit [facility], [facility] [address] [place] [address] Sulma Seth, RN [address] [place] [address] 04/18/2024 11:20 AM EDT Office Visit Family Medicine [address] [phone] Jaime Garcia MD [address] [place] [address] [place] [address] 04/19/2024 9:30 AM EDT Office Visit Cardiology [address] [place] [address] Tim Ruiz PAPageC [address] [place] [address] 05/01/2024 2:30 PM EDT Home Visit [facility], [facility] [address] [place] [address] Sulma Seth, BOBBY [address] [place] [address] 05/11/2024 11:40 AM EDT Office Visit Sleep Disorders Ctr [facility] [address] [place] [phone] Tona Mondragon DO [address] [place] [address] 05/15/2024 2:00 PM EDT Telemedicine Hematology [facility] Tyree Jordan [address] [place] [address] Thierno Patel PA-C [address] [place] [address] 06/20/2024 3:00 PM EDT Telemedicine Hematology [facility] Tyree Jordan [address] [place] [address] Rosalio Amaral MD [address] [place] [address] 07/10/2024 9:30 AM EDT Office Visit Cardiology, [facility] [address] [place] [address] Beth Salter CRNP [address] [facility] [place] [address] 10/30/2024 1:45 PM EST Office Visit Urology, [facility] 132 [facility] [place] [address] Devyn Paniagua MD [address] [facility] [place] [address] 01/01/2025 10:20 AM EDT Office Visit Otolaryngology [facility] [address] [facility] [place] [address] Haley Aguero PA-C 132 [facility] [place] [address] Scheduled Referrals Name Type Priority Associated Diagnoses Order Schedule ELECTROPHYSIOLOGY REFERRAL OP Referral Within 10 days (routine) Cardiac amyloidosis (HCC) NSVT (nonsustained ventricular tachycardia) (HCC) Ordered: 02/10/2024 Health Maintenance Due Date Last Done Comments [...] Additional history exists CKD PHOS USE SMARTSET 07416 03/09/202502/11, 03/08/2024, 03/07/2024, Additional history exists CKD HGB USE SMARTSET 57261 04/09/202504/09, 04/02/2024, 03/26/2024, Additional history exists DTaP,Tdap,and [...] this encounter Medical Devices Implanted Type Area Silo Tender Device Identifier Shelf Expiration Date Model / Serial / Lot Port Power Mri W/8fr Cath - [id number] Implanted:Qty: 1 on 09/26/2020 by Simone Michelle MD at OR [facility] Right: Chest CR BARD : PERIPHERAL VASCULAR 10/12/2021 [id number] / / [id number] Description:right IJ Lens Intraoc 19.0 - [id number] - [id number] Implanted:Qty: 1 on 02/03/2021 by Chris Sexton MD at OR [facility] Right: Eye BAUSCH & LOMB 09/11/2025 [id number] / [id number] / Lens Intraoc 19.0 - [id number] - [id number] Implanted:Qty: 1 on 02/24/2021 by Chris Sexton MD at OR [facility] Left: Eye BAUSCH & LOMB 10/12/2025 [id number] / [id number] / [id number] System Urolift - [id number] Implanted:Qty: 2 on 03/17/2023 by Devyn Paniagua MD at OR [facility] N/A: Urethra [employer] 11/18/2023 LR027-4 / / [id number] System Urolift - [id number] Implanted:Qty: 3 on 03/17/2023 by Devyn Paniagua MD at OR [facility] N/A: Urethra [employer] 11/03/2023 SW764-8 / / [id number] documented as of this encounter Visit Diagnoses Diagnosis Cardiac amyloidosis (HCC)- Primary Other amyloidosis NSVT (nonsustained ventricular tachycardia) (HCC) Paroxysmal ventricular tachycardia Orthostatic hypotension Chronic diastolic congestive heart failure (HCC) Chronic diastolic heart failure Dyslipidemia, goal LDL below 70 Other and unspecified hyperlipidemia documented in this encounter Additional Health Concerns [...] and were consensually agreed upon. Care Teams Classroom Teacher Relationship Specialty Start Date End Date Jaime Garcia MD [address] [place] [address] [place] [phone] PCP - General Family Medicine 10/15/20 documented as of this encounter
--- OUTSIDE RECORDS SUMMARY | 2024-05-13 05:59 | External Medical Summary | Summary of Care ---
Author Name Unknown Organization [facility] Address [address] [place] [address] Phone [phone] Care Team Providers Care Account Classification Clerk Name Role Phone Jaime Garcia MD Primary Care Provide r Reason for Visit * Reason Onset Date Comments Appointment 04/03/2024 Encounter Details Date Type Department Care Team (Late st Contact Info) Description 04/03/2024 Telephone Hematology/Oncology Treatment, [place] [address] [place] [phone] Rosalio Amaral MD [address] [place] [address] Appointment Allergies Active Allergy Reactions Criticality Noted Date Comments Atorvastatin Muscle pain High 03/30/2019 Ezetimibe Muscle pain High 01/25/2020 documented as of this encounter (statuses as of 04/11/2024) Medications Medication Sig Dispensed Refills Start Date End Date Status CPAP every night at bedtime. Active oxygen IN GAS Use 2 L/min(Oxygen) as directed at bedtime. 1 Each 1 Active DeliverCareRxTouch Ultra Blue In Vitro Strip (Glucose Blood)Indications:T [...] mL 3 3 06/14/20 24 Active Pen [place] 32G X 4 MM Use as directed. [...] morning. 180 Capsule 1 4 Active Nystatin 429903 UNIT/ML Mouth/Throat SuspensionIndicatio ns:Multiple myeloma in relapse ([facility]) Swish and swallow 5 mL [...] myeloma without remission 06/14/2014 Overview: Dr Rodriges/ [facility] ADVANCE DIRECTIVE INFORMATION 10/13/2006 Overview: No, Advance [...] Telephone Encounter - Beth Bailey OSA - 04/11/2024 10:47 AM EDT Appt is scheduled and pt is aware * Telephone Encounter - Racquel Gallego RN [...] before auth expires. * Telephone Encounter - Beht Elliott OSA - 04/11/2024 9:22 AM EDT Called pt to schedule and Pt had no idea what I was trying to schedule with him. Let pt know someone would would be calling him to discuss what treatment/plan * Telephone Encounter - Racquel Gallego RN - 04/11/2024 9:06 AM EDT Meno plan is signed. Scheduling: please call patient [...] Gallego RN - 04/09/2024 7:44 AM EDT Meno still unsigned. Anna: can you please assist in getting beacon plan signed? Patient auth 04/15/24, cannot schedule until we have signed orders. * Telephone Encounter - Racquel Gallego RN - 04/06/2024 8:[address] Amaral: please sign beacon plan. Thanks! * Telephone Encounter - Racquel Gallego RN - 04/05/2024 8:40 AM EDT Referral updated- patient needs to receive infusions by 04/15/24. Meno plan is still not signed. Will need to be signed to schedule. Routed to Dr Amaral/ Anna Daniel to assist with getting this signed. * Telephone Encounter - Racquel Gallego RN - 04/03/2024 4:04 PM EDT Images from the original note were not included. "Anna Daniel RN P [facility] Hem/Onc Nurse Pool/Class; [place] [facility] [place] Hem/Onc Scheduling Pool/Class Please schedule [...] immunoglobulin quantitative Teach: no Toxicity Check: no" Meno plan in place, routed for signature Meno plan states site of administration is [facility]- changed to [facility]. Once beacon plan is signed and auth is back, patient can be scheduled. documented in this encounter Plan of Treatment Upcoming Encounters Date Type Department Care Team (Late st Contact Info) Description 04/12/2024 8:00 AM EDT Hem/Onc Treatment Hematology/Oncology Treatment, [place] [address] [place] [phone] [place], Chair 1 Hem Onc Scenery 200 [facility] [place] [address] 04/13/2024 12:00 PM EDT Hem/Onc Treatment [facility]ematology[facility] [place] [facility] [phone] [place], Chair 4 Hem Onc Scenery 200 [facility] [place] [address] 04/16/2024 10:30 AM EDT Scheduled Telephone [facility], [facility] [address] [facility] [place] [address] [address] Back RDN [address] [facility] [place] [address] 04/16/2024 2:30 PM EDT Telemedicine Hematology [facility]cology [facility] [place] [address] [facility] [place] [address] Rosalio Amaral MD [address] [facility] [place] [address] 04/18/2024 10:00 AM EDT Home Visit [facility], [facility] 132 [place] [address] Sulma Seth, BOBBY 132 [place] [address] 04/18/2024 11:20 AM EDT Office Visit Family [address] [phone] Jaime Garcia MD [address] [place] [address] [place] [address] 04/19/2024 9:30 AM EDT Office Visit Cardiology [address] [place] [address] Tim Ruiz PAPageC [address] [place] [address] 05/01/2024 2:30 PM EDT Home Visit [facility], [facility] [address] [place] [address] Sulma Steh, BOBBY [address] [place] [address] 05/11/2024 11:40 AM EDT Office Visit Sleep Disorders Ctr [facility] [address] [place] [phone] Tona Mondragon DO [address] [place] [address] 05/15/2024 2:00 PM EDT Telemedicine Hematology [facility] Tyree Jordan [address] [place] [address] Thierno Patel, LALA [address] [place] [address] 06/20/2024 3:00 PM EDT Telemedicine Hematology [facility] Tyree Jordan [address] [place] [address] Rosalio Amaral MD [address] [place] [address] 07/10/2024 9:30 AM EDT Office Visit Cardiology, [facility] 132 [place] [address] Beth Salter CRNP 400 [facility] [place] [address] 10/30/2024 1:45 PM EST Office Visit Urology, [facility] [address] [place] [address] Devyn Paniagua MD [address] [facility] [place] [address] 01/01/2025 10:20 AM EDT Office Visit Otolaryngology [facility] [address] [place] [address] Haley Aguero PA-C [address] [place] [address] Health Maintenance Due Date Last Done Comments [...] Additional history exists CKD PHOS USE SMARTSET 90310 03/09/202502/11, 03/08/2024, 03/07/2024, Additional history exists CKD HGB USE SMARTSET 49955 04/09/202504/09, 04/02/2024, 03/26/2024, Additional history exists DTaP,Tdap,and [...] this encounter Medical Devices Implanted Type Area Silk Screen Printer Helper Device Identifier Shelf Expiration Date Model / Serial / Lot Port Power Mri W/8fr Cath - [id number] Implanted:Qty: 1 on 09/26/2020 by Simone Michelle MD at OR [facility] Right: Chest CR BARD : PERIPHERAL VASCULAR 10/12/2021 [id number] / / [id number] Description:right IJ Lens Intraoc 19.0 - [id number] - [id number] Implanted:Qty: 1 on 02/03/2021 by Chris Sexton MD at OR [facility] Right: Eye BAUSCH & LOMB 09/11/2025 [id number] / [id number] / Lens Intraoc 19.0 - [id number] - [id number] Implanted:Qty: 1 on 02/24/2021 by Chris Sexton MD at OR [facility] Left: Eye BAUSCH & LOMB 10/12/2025 [id number] / [id number] / [id number] System Urolift - [id number] Implanted:Qty: 2 on 03/17/2023 by Devyn Paniagua MD at OR [facility] N/A: Urethra [employer] 11/18/2023 PG025-9 / / [id number] System Urolift - [id number] Implanted:Qty: 3 on 03/17/2023 by Devyn Paniagua MD at OR [facility] N/A: Urethra [employer] 11/03/2023 FN889-0 / / [id number] documented as of this encounter Additional Health Concerns Infection Onset Date Last Indicated Resolved Time Salmonella 09/14/2023 09/14/2023 Respiratory Rule-Out 01/12/2024 01/12/2024 documented as of this encounter Advance Directives * Full Code (Latest Code Status on File) Date Activated Date Inactivated Comments 03/17/2023 8:20 AM 03/17/2023 1:36 PM This order re flects the patients wishes and were consensually agreed [...] and were consensually agreed upon. Care Teams Account Classification Clerk Relationship Specialty Start Date End Date Jaime Garcia MD [address] [place] [address] [place] [phone] PCP - General Family Medicine 10/15/20 documented as of this encounter
--- OUTSIDE RECORDS SUMMARY | 2024-05-13 06:00 | External Medical Summary | Summary of Care ---
Author Name Unknown Organization [facility] Address [address] [place] [address] Phone [phone] Care Team Providers Care Chucking And Sawing Machine Operator Name Role Phone Jaime Garcia MD Primary Care Provide r Encounter Details Date Type Department Care Team (Late st Contact Info) Description 04/09/2024 Result Scan Unspecified Department Barbara Jiménez, [facility] [address] [place] [address] <No scans attached> Allergies Active Allergy Reactions Criticality Noted Date Comments Atorvastatin Muscle pain High 03/30/2019 Ezetimibe Muscle pain High 01/25/2020 documented as of this encounter (statuses as of 04/10/2024) Medications Medication Sig Dispensed Refills Start Date [...] 6 mL 3 06/15/2023 4 Active Pen [place] 32G X 4 MM Use as directed. [...] morning. 180 Capsule 1 01/02/2024 Active Nystatin 910226 UNIT/ML Mouth/Throat SuspensionIndicati ons:Multiple myeloma in relapse [...] as of this encounter (statuses as of 04/10/2024) Active Problems Problem Noted Date Diagnosed Date [...] as of this encounter (statuses as of 04/10/2024) Resolved Problems Problem Noted Date Diagnosed Date [...] as of this encounter (statuses as of 04/10/2024) Immunizations Name Administration Dates Next Due COVID-19, [...] AM EDT Scheduled Telephone [facility], [facility] [address] [place] [address] [address] Back [address]N [address] [place] [address] 04/16/2024 2:30 PM EDT Telemedicine Hematology [facility] Tyree UGARTE [address] [place] [address] Rosalio Amaral MD [address] [place] [address] 04/18/2024 10:00 AM EDT [facility] Visit [facility], [facility] [address] [place] [address] Sulma Seth, RN 132 [place] [address] 04/18/2024 11:20 AM EDT Office Visit Family Medicine [address] [place] [phone] Jaime Garcia MD [address] [place] [address] [place] [address] 04/19/2024 9:30 AM EDT Office Visit Cardiology [address] [place] [address] Tim Ruiz PAPageC [address] [place] [address] 05/01/2024 2:30 PM EDT Home Visit [facility], [facility] [address] [place] [address] Sulma Seth, RN [address] [place] [address] 05/11/2024 11:40 AM EDT Office Visit Sleep Disorders [facility] [address] [place] [phone] Tona Mondragon DO [address] [place] [address] 05/15/2024 2:00 PM EDT Telemedicine H[facility]ology [facility] Tyree UGARTE [address] [place] [address] Thierno Patel, VENICEC [address] [place] [address] 06/20/2024 3:00 PM EDT Telemedicine Hematology [facility] Tyree UGARTE [address] [facility] [place] [address] Rosalio Amaral MD [address] [facility] [place] [address] 07/10/2024 9:30 AM EDT Office Visit Cardiology, [facility] 132 [facility] [place] [address] Beth Salter CRNP 400 [facility] [place] [address] 10/30/2024 1:45 PM EST Office Visit Urology, [facility] 132 [facility] [place] [address] Devyn Paniagua MD 27 [facility] [place] [address] 01/01/2025 10:20 AM EDT Office Visit Otolaryngology [facility] 132 [facility] [place] [address] Haley Aguero PA-C 132 [facility] [place] [address] Health Maintenance Due Date Last Done Comments [...] 07/25/2023, 03/12, 01/31/2023, Additional history exists GFR 10/03/2024 04/02/2024, 03/12, 03/22/2024, Additional history exists Diabetic Eye Exam 01/18/2025 01/19/2024, , 07/11/2023, Additional history exists Albumin/Creatinine Ratio 01/26/2025 024, 12/30/2023, 09/08/2023, Additional history exists CKD PHOS USE SMARTSET 83404 03/09/202502/11, 03/08/2024, 03/07/2024, Additional history exists CKD HGB USE SMARTSET 52349 04/02/202504/02, 03/26/2024, 03/19/2024, Additional history exists DTaP,Tdap,and Td Vaccines (2 [...] this encounter Medical Devices Implanted Type Area Business Support Coordinator Device Identifier Shelf Expiration Date Model / Serial / Lot Port Power Mri W/8fr Cath - [id number] Implanted:Qty: 1 on 09/26/2020 by Simone Michelle MD at OR [facility] Right: Chest CR BARD : PERIPHERAL VASCULAR 10/12/2021 [id number] / / [id number] Description:right IJ Lens Intraoc 19.0 - [id number] - [id number] Implanted:Qty: 1 on 02/03/2021 by Chris Sexton MD at OR [facility] Right: Eye BAUSCH & LOMB 09/11/2025 [id number] / [id number] / Lens Intraoc 19.0 - [id number] - [id number] Implanted:Qty: 1 on 02/24/2021 by Chris Sexton MD at OR [facility] Left: Eye BAUSCH & LOMB 10/12/2025 [id number] / [id number] System Urolift - [id number] Implanted:Qty: 2 on 03/17/2023 by Devyn Paniagua MD at OR [facility] N/A: Urethra [employer] 11/18/2023 VW783-5 / / [id number] System Urolift - [id number] Implanted:Qty: 3 on 03/17/2023 by Devyn Paniagua MD at OR [facility] N/A: Urethra [employer] 11/03/2023 QU557-7 / / [id number] documented as of this encounter Procedures Procedure Name Priority Date/Time Associated Diagnosis Comments OUTSIDE LAB RESULTS 04/09/2024 documented in this encounter Results * OUTSIDE LAB RESULTS (04/09/2024) 04/09/2024 Barbara Jiménez [facility] LABORATORY documented in this encounter Additional Health [...] and were consensually agreed upon. Care Teams Chucking And Sawing Machine Operator Relationship Specialty Start Date End Date Jaime Garcia MD [address] [place] [address] [place] [address] PCP - General Family Medicine 10/15/20 documented as of this encounter
--- OUTSIDE RECORDS SUMMARY | 2024-05-13 06:00 | External Medical Summary | Summary of Care ---
Author Name Unknown Organization [facility] Address [address] [place] [address] Phone [phone] Care Team Providers Care Commercial Singer Name Role Phone Jaime Garcia MD Primary Care Provide r Reason for Visit * Reason Onset Date Comments Appointment 04/03/2024 Encounter Details Date Type Department Care Team (Late st Contact Info) Description 04/03/2024 Telephone Hematology/Oncology Treatment, [place] [address] [place] [address] Rosalio Amaral MD [address] [place] [address] Appointment Allergies Active Allergy Reactions Criticality Noted Date Comments Atorvastatin Muscle pain High 03/30/2019 Ezetimibe Muscle pain High 01/25/2020 documented as of this encounter (statuses as of 04/10/2024) Medications Medication Sig Dispensed Refills Start Date End Date Status CPAP every night at bedtime. Active oxygen IN GAS Use 2 L/min(Oxygen) as directed at bedtime. 1 Each 1 Active [employer]Touch Ultra Blue In Vitro Strip (Glucose Blood)Indications:T [...] mL 3 3 06/14/20 24 Active Pen [place] 32G X 4 MM Use as directed. [...] morning. 180 Capsule 1 4 Active Nystatin 567007 UNIT/ML Mouth/Throat SuspensionIndicatio ns:Multiple myeloma in relapse ([facility] [...] without remission 06/14/2014 Overview: Dr Rodriges/ [facility] DIRECTIVE INFORMATION 10/13/2006 Overview: No, Advance [...] AM EDT Attempted to TT Dr Amaral- aneudy is on do not disturb. [facility]: can you please get [place] plan signed by covering provider? Patient needs to be scheduled thisweek per auth, but have been unable to get beacon plan signed to get patient scheduled * Telephone Encounter - Racquel Gallego RN - 04/09/2024 7:44 AM EDT [place] still unsigned. Anna: can you please assist in getting beacon plan signed? Patient auth 04/15/24, cannot schedule until we have signed orders. * Telephone Encounter - Racquel Gallego RN - 04/06/2024 8:[address] Amaral: please sign beacon plan. Thanks! * Telephone Encounter - Racquel Gallego RN - 04/05/2024 8:40 AM EDT Referral updated- patient needs to receive infusions by 04/15/24. [place] plan is still not signed. Will need to be signed to schedule. Routed to Dr Amaral/ Anna Daniel to assist with getting this signed. * Telephone Encounter - Racquel Gallego RN - 04/03/2024 4:04 PM EDT Images from the original note were not included. "Anna Daniel RN P [facility] Hem/Onc Nurse Pool/Class; [facility] [place] Hem/Onc Scheduling Pool/Class Please schedule [...] immunoglobulin quantitative Teach: no Toxicity Check: no" [place] plan in place, routed for signature [place] plan states site of administration is [facility]- changed to [place]. Once beacon plan is signed and auth is back, patient can be scheduled. documented in this encounter Plan of Treatment Upcoming Encounters Date Type Department Care Team (Late st Contact Info) Description 04/16/2024 10:30 AM EDT Scheduled Telephone [facility], [facility] [address] [facility] [place] [address] [address]N [address] [facility] [place] [address] 04/16/2024 2:30 PM EDT [facility]med[facility] [address] [facility] [place] [address] Rosalio Amaral MD [address] [facility] [place] [address] 04/18/2024 10:00 AM EDT [facility] Visit [facility] [place], [facility] [address] [place] [address] Sulma Seth RN [address] [place] [address] 04/18/2024 11:20 AM EDT Office Visit Family Medicine [address] [place] [phone] Jaime Garcia MD [address] [place] [address] [place] [address] 04/19/2024 9:30 AM EDT Office Visit Cardiology [address] [place] [address] Tim Ruiz PA-C [address] [place] [address] 05/01/2024 2:30 PM EDT [facility] Visit [facility] [place], [facility] [address] [place] [address] Sulma Seth, BOBBY 132 [facility] [place] [address] 05/11/2024 11:40 AM EDT Office Visit Sleep Disorders Ctr [facility] 132 [facility] [place] [phone] Tona Mondragon DO 132 [facility] [place] [address] 05/15/2024 2:00 PM EDT Telemedicine [facility] [address] [place] [address] Thierno Patel PA-C [address] [place] [address] 06/20/2024 3:00 PM EDT Telemedicine [facility] [address] [place] [address] Rosalio Amaral MD [address] [place] [address] 07/10/2024 9:30 AM EDT Office Visit Cardiology, [facility] 132 [facility] [place] [address] Beth Salter CRNP [address] [facility] [place] [address] 10/30/2024 1:45 PM EST Office Visit Urology, [facility] 132 [facility] [place] [address] Devyn Paniagua MD [address] [place] [address] 01/01/2025 10:20 AM EDT Office Visit Otolaryngology [facility] [address] [place] [address] Haley Aguero PA-C [address] [place] [address] Health Maintenance Due Date Last Done Comments [...] Additional history exists CKD PHOS USE SMARTSET 98389 03/09/202502/11, 03/08/2024, 03/07/2024, Additional history exists CKD HGB USE SMARTSET 69754 04/09/202504/09, 04/02/2024, 03/26/2024, Additional history exists DTaP,Tdap,and [...] this encounter Medical Devices Implanted Type Area Junior Architect Device Identifier Shelf Expiration Date Model / Serial / Lot Port Power Mri W/8fr Cath - [id number] Implanted:Qty: 1 on 09/26/2020 by Simone Michelle MD at OR [facility] Right: Chest CR BARD : PERIPHERAL VASCULAR 10/12/2021 [id number] / / [id number] Description:right IJ Lens Intraoc 19.0 - [id number] - [id number] Implanted:Qty: 1 on 02/03/2021 by Chris Sexton MD at OR [facility] Right: Eye BAUSCH & LOMB 09/11/2025 [id number] / [id number] / Lens Intraoc 19.0 - [id number] - [id number] Implanted:Qty: 1 on 02/24/2021 by Chris Sexton MD at OR [facility] Left: Eye BAUSCH & LOMB 10/12/2025 [id number] / [id number] / [id number] System Urolift - [id number] Implanted:Qty: 2 on 03/17/2023 by Devyn Paniagua MD at OR [facility] N/A: Urethra [employer] 11/18/2023 DN563-8 / / [id number] System Urolift - [id number] Implanted:Qty: 3 on 03/17/2023 by Devyn Paniagua MD at OR [facility] N/A: Urethra [employer] 11/03/2023 JD705-3 / / [id number] documented as of this encounter Additional Health [...] were consensually agreed upon. Care Teams Commercial Singer Relationship Specialty Start Date End Date Jaime Garcia MD [address] [place] [address] [place] [address] PCP - General Family Medicine 10/15/20 documented as of this encounter
--- OUTSIDE RECORDS SUMMARY | 2024-05-13 06:00 | External Medical Summary | Summary of Care ---
Author Name Unknown Organization [facility] Address [address] [place] [address] Phone [phone] Care Team Providers Care Maintenance Department Manager Name Role Phone Jaime Garcia MD Primary Care Provide r Reason for Visit * Reason Onset Date Comments Appointment 04/03/2024 Encounter Details Date Type Department Care Team (Late st Contact Info) Description 04/03/2024 Telephone Hematology/Oncology Treatment, [place] [address] [place] [address] Rosalio Amaral MD [address] [place] [address] Appointment Allergies Active Allergy Reactions Criticality Noted Date Comments Atorvastatin Muscle pain High 03/30/2019 Ezetimibe Muscle pain High 01/25/2020 documented as of this encounter (statuses as of 04/11/2024) Medications Medication Sig Dispensed Refills Start Date End Date Status CPAP every night at bedtime. Active oxygen IN GAS Use 2 L/min(Oxygen) as directed at bedtime. 1 Each 1 Active [employer]Touch Ultra Blue In Vitro Strip (Glucose Blood)Indications:T [...] mL 3 3 06/14/20 24 Active Pen [place] 32G X 4 MM Use as directed. [...] less than 7.0% ([facility]) take two tablets by mouth in the morning 180 Tablet 1 4 Active DULoxetine HCl 20 MG Oral Capsule Delayed Release Particles (Cymbalta) Take 2 Capsules by mouth in the morning. 180 Capsule 1 4 Active Nystatin 066915 UNIT/ML Mouth/Throat SuspensionIndicatio ns:Multiple myeloma in relapse ([facility]) Swish and swallow 5 mL in [...] Miscellaneous Notes * Telephone Encounter - Beth Elliott OSA - 04/11/2024 9:22 AM EDT Called pt to schedule and Pt had no idea what I was trying to schedule with him. Let pt know someone would would be calling him to discuss what treatment/plan * Telephone Encounter - Racquel Gallego RN - 04/11/2024 9:06 AM EDT [place] plan is signed. Scheduling: please call patient [...] Gallego RN - 04/09/2024 7:44 AM EDT [place] still unsigned. Anna: can you please assist in getting beacon plan signed? Patient auth 04/15/24, cannot schedule until we have signed orders. * Telephone Encounter - Racquel Gallego RN - 04/06/2024 8:[address] Amaral: please sign beacon plan. Thanks! * Telephone Encounter - Racquel Gallego RN - 04/05/2024 8:40 AM EDT Referral updated- patient needs to receive infusions by 04/15/24. [place] plan is still not signed. Will need to be signed to schedule. Routed to Dr Amaral/ Anna Daniel to assist with getting this signed. * Telephone Encounter - Racquel Gallego RN - 04/03/2024 4:04 PM EDT Images from the original note were not included. "Anna Daniel RN P [facility] Hem/Onc Nurse Pool/Class; [facility] Hem/Onc Scheduling Pool/Class Please schedule patient for chemotherapy/immunotherapy as follows: Iv ig day 1 day 2 x 1 dose then will get every four weeks in the home after cycle 1 . Physician: Munir Solano Start Date: next week Treatment Medication: ivig day 1 day 2 Length of Treatment: 4 hours Precert Complete: yes Consent: yes New Treatment: no Port:no sure Labs: cbcd cmp immunoglobulin quantitative Teach: no Toxicity Check: no" [place] plan in place, routed for signature [place] plan states site of administration is [facility]- changed to . Once beacon plan is signed and auth is back, patient can be scheduled. documented in this encounter Plan of Treatment Upcoming Encounters Date Type Department Care Team (Late st Contact Info) Description 04/16/2024 10:30 AM EDT Scheduled Telephone [facility], [facility] [address] [place] [address] Yecenia Back RDN [address] [facility] [place] [address] 04/16/2024 2:30 PM EDT Telemedicine Hematology [facility]ree [facility] [address] [place] [address] Rosalio Amaral MD [address] [facility] [place] [address] 04/18/2024 10:00 AM EDT [facility], [facility] 132 [facility] [place] [address] Sulma Seth, RN [address] [place] [address] 04/18/2024 11:20 AM EDT Office Visit Family Medicine [address] [place] [phone] Jaime Garcia MD [address] [place] [address] [place] [address] 04/19/2024 9:30 AM EDT Office Visit Cardiology [address] [place] [address] Tim Ruiz PAPageC [address] [place] [address] 05/01/2024 2:30 PM EDT [facility], [facility] [address] [place] [address] Sulma Seth RN [address] [place] [address] 05/11/2024 11:40 AM EDT Office Visit Sleep Disorders Ctr [facility] [address] [place] [phone] Tona Mondragon DO [address] [place] [address] 05/15/2024 2:00 PM EDT Telemedicine Hematology [facility] [place] [place] [address] [place] [address] Thierno Patel PA-C [address] [place] [address] 06/20/2024 3:00 PM EDT Telemedicine Hematology [facility] [place] [place] [address] [place] [address] Rosalio Amaral MD [address] [facility] [place] [address] 07/10/2024 9:30 AM EDT Office Visit Cardiology, [facility] 132 [facility] [place] [address] Beth Salter CRNP 400 [facility] [place] [phone] 10/30/2024 1:45 PM EST Office Visit Urology, [facility] 132 [facility] [place] [address] Devyn Paniagua MD 27 [facility] [place] [address] 01/01/2025 10:20 AM EDT Office Visit Otolaryngology [facility] 132 [facility] [place] [address] Haley Aguero PA-C 132 [facility] [place] [address] Health Maintenance Due Date Last Done Comments [...] Additional history exists CKD PHOS USE SMARTSET 38719 03/09/202502/11, 03/08/2024, 03/07/2024, Additional history exists CKD HGB USE SMARTSET 14350 04/09/202504/09, 04/02/2024, 03/26/2024, Additional history exists DTaP,Tdap,and [...] this encounter Medical Devices Implanted Type Area Maintenance Data Analyst Device Identifier Shelf Expiration Date Model / Serial / Lot Port Power Mri W/8fr Cath - [id number] Implanted:Qty: 1 on 09/26/2020 by Simone Michelle MD at OR [facility] Right: Chest CR BARD : PERIPHERAL VASCULAR 10/12/2021 [id number] / / [id number] Description:right IJ Lens Intraoc 19.0 - [id number] - [id number] Implanted:Qty: 1 on 02/03/2021 by Chris Sexton MD at OR [facility] Right: Eye BAUSCH & LOMB 09/11/2025 [id number] / [id number] / Lens Intraoc 19.0 - [id number] - [id number] Implanted:Qty: 1 on 02/24/2021 by Chris Sexton MD at OR [facility] Left: Eye BAUSCH & LOMB 10/12/2025 [id number] / [id number] / [id number] System Urolift - [id number] Implanted:Qty: 2 on 03/17/2023 by Devyn Paniagua MD at OR [facility] N/A: Urethra [employer] 11/18/2023 VY408-9 / / [id number] System Urolift - [id number] Implanted:Qty: 3 on 03/17/2023 by Devyn Paniagua MD at OR [facility] N/A: Urethra [employer] 11/03/2023 BE462-3 / / [id number] documented as of this encounter Additional Health [...] and were consensually agreed upon. Care Teams Maintenance Department Manager Relationship Specialty Start Date End Date Jaime Garcia MD [address] [place] [address] [place] [phone] PCP - General Family Medicine 10/15/20 documented as of this encounter
--- OUTSIDE RECORDS SUMMARY | 2024-05-13 06:00 | External Medical Summary | Summary of Care ---
Author Name Unknown Organization [facility] Address [address] [place] [address] Phone [phone] Care Team Providers Care Income Tax Advisor Name Role Phone Jaime Garcia MD Primary Care Provide r Reason for Visit * Reason Onset Date Comments Appointment 04/03/2024 Encounter Details Date Type Department Care Team (Late st Contact Info) Description 04/03/2024 Telephone Hematology/Oncology Treatment, [place] [address] [place] [phone] Rosalio Amaral MD [address] [place] [address] Appointment Allergies Active Allergy Reactions Criticality Noted Date Comments Atorvastatin Muscle pain High 03/30/2019 Ezetimibe Muscle pain High 01/25/2020 documented as of this encounter (statuses as of 04/11/2024) Medications Medication Sig Dispensed Refills Start Date End Date Status CPAP every night at bedtime. Active oxygen IN GAS Use 2 L/min(Oxygen) as directed at bedtime. 1 Each 1 Active ImperatorTouch Ultra Blue In Vitro Strip (Glucose Blood)Indications:T [...] mL 3 3 06/14/20 24 Active Pen [place] 32G X 4 MM Use as directed. [...] use of insulin ([facility]) Use as directed to check blood sugars [...] less than 7.0% ([facility]) take two tablets by mouth in the morning 180 Tablet 1 4 Active DULoxetine HCl 20 MG Oral Capsule Delayed Release Particles (Cymbalta) Take 2 Capsules by mouth in the morning. 180 Capsule 1 4 Active Nystatin 476701 UNIT/ML Mouth/Throat SuspensionIndicatio ns:Multiple myeloma in relapse ([facility]) Swish and swallow 5 mL in the [...] Overview: Dr Rodriges/ [facility] DIRECTIVE INFORMATION 10/13/2006 Overview: No, Advance [...] Gallego RN - 04/11/2024 9:06 AM EDT [place] plan is signed. Scheduling: please call patient [...] Gallego RN - 04/09/2024 7:44 AM EDT [place] still unsigned. Anna: can you please assist in getting [place] plan signed? Patient auth 04/15/24, cannot schedule until we have signed orders. * Telephone Encounter - Racquel Gallego RN - 04/06/2024 8:[address] Amaral: please sign [place] plan. Thanks! * Telephone Encounter - Racquel Gallego RN - 04/05/2024 8:40 AM EDT Referral updated- patient needs to receive infusions by 04/15/24. [place] plan is still not signed. Will need [...] immunoglobulin quantitative Teach: no Toxicity Check: no" [place] plan in place, routed for signature [place] plan states site of administration is [facility]- changed to . Once [place] plan is signed and auth is back, patient can be scheduled. documented in this encounter Plan of Treatment Upcoming Encounters Date Type Department Care Team (Late st Contact Info) Description 04/16/2024 10:30 AM EDT Scheduled Telephone [facility], [facility] [address] [place] [address] Yecenia Back RDN [address] [place] [address] 04/16/2024 2:30 PM EDT Telemedicine [facility] [place] [address] [place] [address] Rosalio Amaral MD [address] [place] [address] 04/18/2024 10:00 AM EDT [facility] 132 [facility] [place] [address] Sulma Seth, BOBBY 132 [facility] [place] [address] 04/18/2024 11:20 AM EDT Office Visit Family [address] [place] [phone] Jaime Garcia MD [address] [place] [address] [place] [address] 04/19/2024 9:30 AM EDT Office Visit Cardiology [address] [place] [address] Tim Ruiz PAPageC [address] [place] [address] 05/01/2024 2:30 PM EDT [facility], [facility] [address] [place] [address] Sulma Seth, BOBBY [address] [place] [address] 05/11/2024 11:40 AM EDT Office Visit Sleep Disorders [facility] [address] [place] [phone] Tona Mondragon DO [address] [place] [address] 05/15/2024 2:00 PM EDT Telemedicine [facility] [address] [place] [address] Thierno Patel PA-C [address] [place] [address] 06/20/2024 3:00 PM EDT Telemedicine Hematology [facility] Tyree [place] [address] [place] [address] Rosalio Amaral MD [address] [place] [address] 07/10/2024 9:30 AM EDT Office Visit Cardiology, [facility] [address] [place] [address] Beth Salter CRNP 400 [facility] [place] [address] 10/30/2024 1:45 PM EST Office Visit Urology, [facility] [address] [place] [address] Devyn Paniagua MD 27 [facility] [place] [address] 01/01/2025 10:20 AM EDT Office Visit [facility]ology [facility] [place] [address] Haley Aguero PA-C [address] [place] [address] Health Maintenance Due Date Last Done Comments [...] Additional history exists CKD PHOS USE SMARTSET 66633 03/09/202502/11, 03/08/2024, 03/07/2024, Additional history exists CKD HGB USE SMARTSET 71450 04/09/202504/09, 04/02/2024, 03/26/2024, Additional history exists DTaP,Tdap,and [...] this encounter Medical Devices Implanted Type Area Station Installer And Repairer Device Identifier Shelf Expiration Date Model / Serial / Lot Port Power Mri W/8fr Cath - [id number] Implanted:Qty: 1 on 09/26/2020 by Simone Michelle MD at OR [facility] Right: Chest CR BARD : PERIPHERAL VASCULAR 10/12/2021 [id number] / / [id number] Description:right IJ Lens Intraoc 19.0 - [id number] - [id number] Implanted:Qty: 1 on 02/03/2021 by Chris Sexton MD at OR [facility] Right: Eye BAUSCH & LOMB 09/11/2025 [id number] / [id number] / Lens Intraoc 19.0 - [id number] - [id number] Implanted:Qty: 1 on 02/24/2021 by Chris Sexton MD at OR [facility] Left: Eye BAUSCH & LOMB 10/12/2025 [id number] / [id number] System Urolift - [id number] Implanted:Qty: 2 on 03/17/2023 by Devyn Paniagua MD at OR [facility] N/A: Urethra [employer] 11/18/2023 GW113-5 / / [id number] System Urolift - [id number] Implanted:Qty: 3 on 03/17/2023 by Devyn Paniagua MD at OR [facility] N/A: Urethra [employer] 11/03/2023 PR221-0 / / [id number] documented as of this encounter Additional Health [...] and were consensually agreed upon. Care Teams Income Tax Advisor Relationship Specialty Start Date End Date Jaime Garcia MD [address] [place] [address] [place] [address] PCP - General Family Medicine 10/15/20 documented as of this encounter
--- OUTSIDE RECORDS SUMMARY | 2024-05-13 06:00 | External Medical Summary | Summary of Care ---
Author Name Unknown Organization [facility] Address [address] [place] [address] Phone [phone] Care Team Providers Care Manager Nursing Home Name Role Phone Jaime Garcia MD Primary Care Provide r Encounter Details Date Type Department Care Team (Late st Contact Info) Description 04/10/2024 Orders Only Family Medicine [address] [place] [phone] Jaime Garcia MD [address] [place] [address] [place] [address] Allergies Active Allergy Reactions Criticality Noted Date [...] of less than 7.0% ([facility]) Use as directed daily. Test once [...] 6 mL 3 06/15/2023 4 Active Pen Roxana 32G X 4 MM Use as directed. [...] current use of insulin ([facility]) Use as directed to check blood [...] of less than 7.0% ([facility]) take two tablets by mouth in the morning 180 Tablet 1 01/04/2024 Active DULoxetine HCl 20 MG Oral Capsule Delayed Release Particles (Cymbalta) Take 2 Capsules by mouth in the morning. 180 Capsule 1 01/02/2024 Active Nystatin 957374 UNIT/ML Mouth/Throat SuspensionIndicati ons:Multiple myeloma in relapse ([facility]) Swish and swallow 5 mL in the morning and 5 mL at noon and 5 mL in the evening and 5 mL before bedtime. 60 mL 1 01/02/2024 Active Additional Information Patient not taking.Reported on 04/06/2024 Magnesium Chloride 64 MG Oral Tablet Delayed Release (Mag64)Indications :Multiple myeloma in relapse ([facility]) Take 1 Tablet by mouth in [...] Scheduled Telephone [facility] [address] [facility] [place] [address] [address] [facility] [place] [address] 04/16/2024 2:30 PM EDT Telemedicine [facility] Tyree UGARTE [address] [facility] [place] [address] Rosalio Amaral MD [address] [facility] [place] [address] 04/18/2024 10:00 AM EDT Home Visit [facility], [facility] [address] [place] [address] Sulma Seth, RN [address] [place] [address] 04/18/2024 11:20 AM EDT Office Visit Family Medicine [address] [place] [phone] Jaime Garcia MD [address] [place] [address] [place] [address] 04/19/2024 9:30 AM EDT Office Visit Cardiology [address] [place] [address] Tim Ruiz PAPageC [address] [place] [address] 05/01/2024 2:30 PM EDT Home Visit [facility], [facility] [address] [place] [address] Sulma Seth, RN [address] [place] [address] 05/11/2024 11:40 AM EDT Office Visit Sleep Disorders Ctr [facility] [address] [place] [phone] Tona Mondragon DO [address] [place] [address] 05/15/2024 2:00 PM EDT Telemedicine [facility] Tyree UGARTE [address] [facility] [place] [address] PatelThierno PA-C [address] [facility] [place] [address] 06/20/2024 3:00 PM EDT Telemedicine [facility] GWTyree [address] [place] [address] Rosalio Amaral MD [address] [facility] [place] [address] 07/10/2024 9:30 AM EDT Office Visit Cardiology, [facility] [address] [facility] [place] [address] Beth Salter CRNP [address] [facility] [place] [address] 10/30/2024 1:45 PM EST Office Visit Urology, [facility] [place] [address] Devyn Paniagua MD 27 [place] [address] 01/01/2025 10:20 AM EDT Office Visit Otolaryngology [facility] [place] [address] Haley Aguero PA-C 132 [facility] [place] [address] Health Maintenance Due Date Last Done Comments [...] 03/12, 01/31/2023, Additional history exists GFR 10/03/2024 04/09/2024, 03/13, 03/26/2024, Additional history exists Diabetic Eye Exam 01/18/2025 01/19/2024, , 07/11/2023, Additional history exists Albumin/Creatinine Ratio 01/26/2025 024, 12/30/2023, 09/08/2023, Additional history exists CKD PHOS USE SMARTSET 14155 03/09/202502/11, 03/08/2024, 03/07/2024, Additional history exists CKD HGB USE SMARTSET 18895 04/02/202504/09, 04/02/2024, 03/26/2024, Additional history exists DTaP,Tdap,and Td [...] this encounter Medical Devices Implanted Type Area Slab Grinder Device Identifier Shelf Expiration Date Model / Serial / Lot Port Power Mri W/8fr Cath - [id number] Implanted:Qty: 1 on 09/26/2020 by Simone Michelle MD at OR [facility] Right: Chest CR BARD : PERIPHERAL VASCULAR 10/12/2021 [id number] / / [id number] Description:right IJ Lens Intraoc 19.0 - [id number] - [id number] Implanted:Qty: 1 on 02/03/2021 by Chris Sexton MD at OR [facility] Right: Eye BAUSCH & LOMB 09/11/2025 [id number] / [id number] / Lens Intraoc 19.0 - [id number] - [id number] Implanted:Qty: 1 on 02/24/2021 by Chris Sexton MD at OR [facility] Left: Eye BAUSCH & LOMB 10/12/2025 [id number] / [id number] / [id number] System Urolift - [id number] Implanted:Qty: 2 on 03/17/2023 by Devyn Paniagua MD at OR [facility] N/A: Urethra [employer] 11/18/2023 [id number] / / [id number] System Urolift - [id number] Implanted:Qty: 3 on 03/17/2023 by Devyn Paniagua MD at OR [facility] N/A: Urethra [employer] 11/03/2023 TL510-0 / / [id number] documented as of this encounter Procedures Procedure Name Priority Date/Time Associated Diagnosis Comments CHEMISTRY-OUTSIDE Routine 04/09/2024 documented in this encounter Results * (ABNORMAL) CHEMISTRY-OUTSIDE (04/09/2024) Not all results display below - see scan for full detail OUTSIDE LAB (SEE SCANNED REPORT) Comment:SEE SCAN - CBC,FIBRI NOGEN LEVEL,PT/INR,PTT,CMP,CRP,FERRITIN CREATININE-OUTSID E LAB 1.15 0.70 - 1.30 MG/DL OUTSIDE LAB (SEE SCANNED REPORT) EGFR-OUTSIDE LAB 76 >60 ML/MIN/1.7 3M2 OUTSIDE LAB (SEE SCANNED REPORT) POTASSIUM-OUTSIDE LAB 4.7 3.5 - 5.1 MMOL/L OUTSIDE LAB (SEE SCANNED REPORT) GLUCOSE-OUTSIDE LAB 152(A) 70 - 110 MG/DL OUTSIDE LAB (SEE [...] LAB OUTSIDE LAB (SEE SCANNED REPORT) HEMOGLOBIN, [id number] LAB OUTSIDE LAB (SEE SCANNED REPORT) PHOSPHORUS-OUTSID E LAB OUTSIDE LAB (SEE SCANNED REPORT) PTH-OUTSIDE LAB OUTS ALAVREZ LAB (SEE SCANNED REPORT) MICROALBUMIN RATIO-OUTSIDE LAB OUTSIDE LA B (SEE SCANNED REPORT) PROTEIN, UA-OUTSIDE LAB OUTSIDE LAB (SEE SCANNED REPORT) HGB 12.5(A) 13.5 - 18.0 GM/DL OUTSIDE LAB (SEE SCANNED REPORT) 04/09/2024 Jiame Garcia MD LABORATORY OUTSIDE LAB (SEE SCANNED [...] were consensually agreed upon. Care Teams Manager Nursing Home Relationship Specialty Start Date End Date Jaime Garcia MD [address] [place] [address] [place] [address] PCP - General Family Medicine 10/15/20 documented as of this encounter
--- OUTSIDE RECORDS SUMMARY | 2024-05-13 06:00 | External Medical Summary | Summary of Care ---
Author Name Unknown Organization [facility] Address [address] [place] [address] Phone [phone] Care Team Providers Care Manager Brand Name Role Phone Jaime Garcia MD Primary Care Provide r Reason for Visit * Reason Onset Date Comments Home Health 04/09/2024 Encounter Details Date Type Department Care Team (Late st Contact Info) Description 04/09/2024 Telephone Family Medicine [address] [phone] Jaime Garcia MD [address] [place] [address] [place] [address] Home Health Allergies Active Allergy Reactions Criticality [...] 6 mL 3 06/15/2023 4 Active Pen P[place] 32G X 4 MM Use as directed. [...] without long-term current use of insulin ([facility]) Use as directed to [...] than 7.0% ([facility]) take two tablets by mouth in the morning 180 Tablet 1 01/04/2024 Active DULoxetine HCl 20 MG Oral Capsule Delayed Release Particles (Cymbalta) Take 2 Capsules by mouth in the morning. 180 Capsule 1 01/02/2024 Active Nystatin 123700 UNIT/ML Mouth/Throat SuspensionIndicati ons:Multiple myeloma in relapse ([facility]) Swish and swallow 5 mL in the morning and 5 mL at noon and 5 mL in the evening and 5 mL before bedtime. 60 mL 1 01/02/2024 Active Additional Information Patient not taking.Reported on 04/06/2024 Magnesium Chloride 64 MG Oral Tablet Delayed Release (Mag64)Indications :Multiple myeloma in relapse ([facility]) Take 1 Tablet by [...] advised that he talk to Oncology on Tuesday about an appetite stimulant. Please advise Call back patient with any advice or recommendations. documented in this encounter Plan of Treatment Upcoming Encounters Date Type Department Care Team (Late st Contact Info) Description 04/16/2024 10:30 AM EDT Scheduled Telephone [facility], [facility] [address] [facility] [place] [address] [address]N [address] [facility] [place] [address] 04/16/2024 2:30 PM EDT Telemedicine H[facility]ology [facility] Ap UGARTEOlga [address] [place] [address] Rosalio Amaral MD [address] [facility] [place] [address] 04/18/2024 10:00 AM EDT [facility] Visit [facility], [facility] [address] [place] [address] Sulma Seth, RN [address] [place] [address] 04/18/2024 11:20 AM EDT Office Visit Family Medicine [address] [place] [phone] Jaime Garcia MD [address] [place] [address] [place] [address] 04/19/2024 9:30 AM EDT Office Visit Cardiology [address] [place] [address] Tim Ruiz PAPageC [address] [place] [address] 05/01/2024 2:30 PM EDT Home Visit [facility], [facility] [address] [place] [address] Sulma Seth, RN 132 [place] [address] 05/11/2024 11:40 AM EDT Office Visit Sleep Disorders [facility] [address] [place] [phone] Tona Mondragon DO [address] [place] [address] 05/15/2024 2:00 PM EDT Telemedicine Hematology [facility] Tyree [address] [place] [address] Thierno aPtel PA-C [address] [place] [address] 06/20/2024 3:00 PM EDT Telemedicine Hematology [facility] Tyree [address] [place] [address] Rosalio Amaral MD [address] [place] [address] 07/10/2024 9:30 AM EDT Office Visit Cardiology, [facility] [place] [address] Beth Salter CRNP [address] [facility] [place] [address] 10/30/2024 1:45 PM EST Office Visit Urology, [facility] [address] [facility] [place] [address] Devyn Paniagua MD [address] [facility] [place] [address] 01/01/2025 10:20 AM EDT Office Visit Otol[facility]ology [facility] [place] [address] Haley Aguero PA-C 132 [facility] [place] [address] Health Maintenance Due Date Last Done Comments [...] Additional history exists CKD PHOS USE SMARTSET 05285 03/09/202502/11, 03/08/2024, 03/07/2024, Additional history exists CKD HGB USE SMARTSET 21009 04/09/202504/09, 04/02/2024, 03/26/2024, Additional history exists DTaP,Tdap,and [...] this encounter Medical Devices Implanted Type Area Portable Irrigation Operator Device Identifier Shelf Expiration Date Model / Serial / Lot Port Power Mri W/8fr Cath - [id number] Implanted:Qty: 1 on 09/26/2020 by Simone Michelle MD at OR [facility] Right: Chest CR BARD : PERIPHERAL VASCULAR 10/12/2021 [id number] / / [id number] Description:right IJ Lens Intraoc 19.0 - [id number] - [id number] Implanted:Qty: 1 on 02/03/2021 by Chris Sexton MD at OR [facility] Right: Eye BAUSCH & LOMB 09/11/2025 [id number] / [id number] / Lens Intraoc 19.0 - [id number] - [id number] Implanted:Qty: 1 on 02/24/2021 by Chris Sexton MD at OR [facility] Left: Eye BAUSCH & LOMB 10/12/2025 [id number] / [id number] System Urolift - [id number] Implanted:Qty: 2 on 03/17/2023 by Devyn Paniagua MD at OR [facility] N/A: Urethra [employer] 11/18/2023 WQ852-8 / / [id number] System Urolift - [id number] Implanted:Qty: 3 on 03/17/2023 by Devyn Paniagua MD at OR [facility] N/A: Urethra [employer] 11/03/2023 FR417-2 / / [id number] documented as of this encounter Additional Health [...] were consensually agreed upon. Care Teams Manager Brand Relationship Specialty Start Date End Date Jaime Garcia MD [address] [place] [address] [place] [address] PCP - General Family Medicine 10/15/20 documented as of this encounter
--- OUTSIDE RECORDS SUMMARY | 2024-05-13 06:00 | External Medical Summary | Summary of Care ---
Author Name Unknown Organization [facility] Address [address] [place] [address] Phone [phone] Care Team Providers Care City Detective Name Role Phone Jaime Garcia MD Primary Care Provide r Reason for Visit * Reason Onset Date Comments Appointment 04/03/2024 Encounter Details Date Type Department Care Team (Late st Contact Info) Description 04/03/2024 Telephone Hematology/Oncology Treatment, Mobile [address] [place] [phone] Rosalio Amaral MD [address] [place] [address] Appointment Allergies Active Allergy Reactions Criticality Noted Date Comments Atorvastatin Muscle pain High 03/30/2019 Ezetimibe Muscle pain High 01/25/2020 documented as of this encounter (statuses as of 04/11/2024) Medications Medication Sig Dispensed Refills Start Date End Date Status CPAP every night at bedtime. Active oxygen IN GAS Use 2 L/min(Oxygen) as directed at bedtime. 1 Each 1 Active CTIC DakarTouch Ultra Blue In Vitro Strip (Glucose Blood)Indications:T [...] mL 3 3 06/14/20 24 Active Pen [place]side 32G X 4 MM Use as directed. [...] morning. 180 Capsule 1 4 Active Nystatin 770452 UNIT/ML Mouth/Throat SuspensionIndicatio ns:Multiple myeloma in relapse ([facility]) Swish and swallow 5 mL [...] Gallego RN - 04/11/2024 9:06 AM EDT [place] plan is signed. Scheduling: please call patient [...] Gallego RN - 04/09/2024 7:44 AM EDT [place] still unsigned. Anna: can you please assist in getting [place] plan signed? Patient auth 04/15/24, cannot schedule until we have signed orders. * Telephone Encounter - Racquel Gallego RN - 04/06/2024 8:[address] Amaral: please sign beacon plan. Thanks! * Telephone Encounter - Racquel Gallego RN - 04/05/2024 8:40 AM EDT Referral updated- patient needs to receive infusions by 04/15/24. [place] plan is still not signed. Will need to be signed to schedule. Routed to Dr Amaral/ Anna Daniel to assist with getting this signed. * Telephone Encounter - Racquel Gallego RN - 04/03/2024 4:04 PM EDT Images from the original note were not included. "Anna Daniel RN [facility] Nurse Pool/Class; [place] [facility] Hem/Onc Scheduling Pool/Class Please schedule patient [...] immunoglobulin quantitative Teach: no Toxicity Check: no" [place] plan in place, routed for signature [place] plan states site of administration is [facility]- changed to [facility]. Once beacon plan is signed and auth is back, patient can be scheduled. documented in this encounter Plan of Treatment Upcoming Encounters Date Type Department Care Team (Late st Contact Info) Description 04/16/2024 10:30 AM EDT [facility] [address] [place] [address] Yecenia Back, ALEXANDREN [address] [facility] [place] [address] 04/16/2024 2:30 PM EDT Telemedicine H[facility]ology [facility] Tyree UGARTE [address] [facility] [place] [address] Rosalio Amaral MD [address] [facility] [place] [address] 04/18/2024 10:00 AM EDT [facility], [facility] [address] [place] [address] Sulma Seth, BOBBY [address] [place] [address] 04/18/2024 11:20 AM EDT Office Visit Family Medicine [address] [place] [phone] Jaime Garcia MD [address] [place] [address] [place] [address] 04/19/2024 9:30 AM EDT Office Visit Cardiology [address] [place] [address] Tim Ruiz PA-C [address] [place] [address] 05/01/2024 2:30 PM EDT [facility] [address] [place] [address] Sulma Seth, BOBBY [address] [place] [address] 05/11/2024 11:40 AM EDT Office Visit Sleep Disorders Ctr [facility] [address] [place] [phone] Tona Mondragon DO 132 [place] [address] 05/15/2024 2:00 PM EDT [facility]med[facility] [address] [place] [address] Thierno Patel PA-C [address] [place] [address] 06/20/2024 3:00 PM EDT Telemedicine [facility] [address] [facility] [place] [address] Rosalio Amaral MD [address] [place] [address] 07/10/2024 9:30 AM EDT Office Visit Cardiology, [facility] [address] [facility] [place] [address] Beth Salter CRNP 400 [facility] [place] [address] 10/30/2024 1:45 PM EST Office Visit Urology, [facility] [address] [facility] [place] [address] Devyn Paniagua MD 27 [facility] [place] [address] 01/01/2025 10:20 AM EDT Office Visit Otolaryngology [facility] [address] [facility] [place] [address] Haley Aguero PA-C 132 [facility] [place] [address] Health Maintenance Due Date Last Done Comments [...] Additional history exists CKD PHOS USE SMARTSET 28581 03/09/202502/11, 03/08/2024, 03/07/2024, Additional history exists CKD HGB USE SMARTSET 00183 04/09/202504/09, 04/02/2024, 03/26/2024, Additional history exists DTaP,Tdap,and [...] this encounter Medical Devices Implanted Type Area Switch Cleaner Device Identifier Shelf Expiration Date Model / Serial / Lot Port Power Mri W/8fr Cath - [id number] Implanted:Qty: 1 on 09/26/2020 by Simone Michelle MD at OR [facility] Right: Chest CR BARD : PERIPHERAL VASCULAR 10/12/2021 [id number] / / [id number] Description:right IJ Lens Intraoc 19.0 - [id number] - [id number] Implanted:Qty: 1 on 02/03/2021 by Chris Sexton MD at OR [facility] Right: Eye BAUSCH & LOMB 09/11/2025 [id number] / [id number] / Lens Intraoc 19.0 - [id number] - [id number] Implanted:Qty: 1 on 02/24/2021 by Chris Sexton MD at OR [facility] Left: Eye BAUSCH & LOMB 10/12/2025 [id number] / [id number] System Urolift - [id number] Implanted:Qty: 2 on 03/17/2023 by Devyn Paniagua MD at OR [facility] N/A: Urethra [employer] 11/18/2023 ZE626-2 / / [id number] System Urolift - [id number] Implanted:Qty: 3 on 03/17/2023 by Devyn Paniagua MD at OR [facility] N/A: Urethra [employer] 11/03/2023 PI562-1 / / [id number] documented as of this encounter Additional Health [...] and were consensually agreed upon. Care Teams City Detective Relationship Specialty Start Date End Date Jaime Garcia MD [address] [place] [address] [place] [phone] PCP - General Family Medicine 10/15/20 documented as of this encounter
--- OUTSIDE RECORDS SUMMARY | 2024-05-13 06:00 | External Medical Summary | Summary of Care ---
Author Name Unknown Organization [facility] Address [address] [place] [address] Phone [phone] Care Team Providers Care Shipping And Receiving Weigher Name Role Phone Jaime Garcia MD Primary Care Provide r Reason for Visit * Reason Onset Date Comments Appointment 04/03/2024 Encounter Details Date Type Department Care Team (Late st Contact Info) Description 04/03/2024 Telephone Hematology/Oncology Treatment, [place] [address] [place] [phone] Rosalio Amaral MD [address] [place] [address] Appointment Allergies Active Allergy Reactions Criticality Noted Date Comments Atorvastatin Muscle pain High 03/30/2019 Ezetimibe Muscle pain High 01/25/2020 documented as of this encounter (statuses as of 04/10/2024) Medications Medication Sig Dispensed Refills Start Date End Date Status CPAP every night at bedtime. Active oxygen IN GAS Use 2 L/min(Oxygen) as directed at bedtime. 1 Each 1 Active Tribe WearablesTouch Ultra Blue In Vitro Strip (Glucose Blood)Indications:T [...] mL 3 3 06/14/20 24 Active Pen [place] 32G X 4 MM Use as directed. [...] morning. 180 Capsule 1 4 Active Nystatin 367136 UNIT/ML Mouth/Throat SuspensionIndicatio ns:Multiple myeloma in relapse [...] Gallego RN - 04/09/2024 7:44 AM EDT [place] still unsigned. Anna: can you please assist in getting [place] plan signed? Patient auth 04/15/24, cannot schedule until we have signed orders. * Telephone Encounter - Racquel Gallego RN - 04/06/2024 8:[address] Amaral: please sign [place] plan. Thanks! * Telephone Encounter - Racquel Gallego RN - 04/05/2024 8:40 AM EDT Referral updated- patient needs to receive infusions by 04/15/24. [place] plan is still not signed. Will need to be signed to schedule. Routed to Dr Amaral/ Anna Daniel to assist with getting this signed. * Telephone Encounter - Racquel Gallego RN - 04/03/2024 4:04 PM EDT Images from the original note were not included. "Anna Daniel RN [facility] Hem/Onc Nurse Pool/Class; [facility] Hem/Onc Scheduling Pool/Class Please schedule [...] immunoglobulin quantitative Teach: no Toxicity Check: no" [place] plan in place, routed for signature [place] plan states site of administration is [facility]- changed to [place]. Once [place] plan is signed and auth is back, patient can be scheduled. documented in this encounter Plan of Treatment Upcoming Encounters Date Type Department Care Team (Late st Contact Info) Description 04/16/2024 10:30 AM EDT Scheduled Telephone [facility], [facility] [address] [facility] [place] [address] [address]N [address] [facility] [place] [address] 04/16/2024 2:30 PM EDT [facility] [address] [facility] [place] [address] Rosalio Amaral MD [address] [facility] [place] [address] 04/18/2024 10:00 AM EDT [facility] Visit [facility] [place], [facility] [address] [place] [address] Sulma Seth RN [address] [place] [address] 04/18/2024 11:20 AM EDT Office Visit Family Medicine [address] [place] [phone] Jaime Garcia MD [address] [place] [address] [place] [address] 04/19/2024 9:30 AM EDT Office Visit Cardiology [address] [place] [address] Tim Ruiz PA-C [address] [place] [address] 05/01/2024 2:30 PM EDT [facility] Visit [facility] [place], [facility] [address] [place] [address] Sulma Seth, BOBBY [address] [facility] [place] [address] 05/11/2024 11:40 AM EDT Office Visit Sleep Disorders Ctr [facility] [address] [facility] [place] [phone] Tona Mondragon DO [address] [facility] [place] [address] 05/15/2024 2:00 PM EDT [facility]medicine [facility] [address] [place] [address] Thierno Patel PA-C [address] [place] [address] 06/20/2024 3:00 PM EDT [facility]medicine [facility] [address] [place] [address] Rosalio Amaral MD [address] [place] [address] 07/10/2024 9:30 AM EDT Office Visit Cardiology, [facility] [address] [facility] [place] [address] Beth Salter CRNP [address] [facility] [place] [address] 10/30/2024 1:45 PM EST Office Visit Urology, [facility] [address] [facility] [place] [address] Devyn Paniagua MD [address] [place] [address] 01/01/2025 10:20 AM EDT Office Visit Otolaryngology [facility] [address] [place] [address] Haley Aguero PA-C [address] [place] [address] Health Maintenance Due Date Last Done Comments [...] Additional history exists CKD PHOS USE SMARTSET 96940 03/09/202502/11, 03/08/2024, 03/07/2024, Additional history exists CKD HGB USE SMARTSET 97994 04/02/202504/02, 03/26/2024, 03/19/2024, Additional history exists DTaP,Tdap,and [...] this encounter Medical Devices Implanted Type Area Automotive Refinisher Device Identifier Shelf Expiration Date Model / Serial / Lot Port Power Mri W/8fr Cath - [id number] Implanted:Qty: 1 on 09/26/2020 by Simone Michelle MD at OR [facility] Right: Chest CR BARD : PERIPHERAL VASCULAR 10/12/2021 [id number] / / [id number] Description:right IJ Lens Intraoc 19.0 - [id number] - [id number] Implanted:Qty: 1 on 02/03/2021 by Chris Sexton MD at OR [facility] Right: Eye BAUSCH & LOMB 09/11/2025 [id number] / [id number] / Lens Intraoc 19.0 - [id number] - [id number] Implanted:Qty: 1 on 02/24/2021 by Chris Sexton MD at OR [facility] Left: Eye BAUSCH & LOMB 10/12/2025 [id number] / [id number] / [id number] System Urolift - [id number] Implanted:Qty: 2 on 03/17/2023 by Devyn Paniagua MD at OR [facility] N/A: Urethra [employer] 11/18/2023 [id number] / / [id number] System Urolift - [id number] Implanted:Qty: 3 on 03/17/2023 by Devyn Paniagua MD at OR [facility] N/A: Urethra [employer] 11/03/2023 [id number] / / [id number] documented as of this encounter Additional Health [...] and were consensually agreed upon. Care Teams Shipping And Receiving Weigher Relationship Specialty Start Date End Date Jaime Garcia MD [address] [place] [address] [place] [phone] PCP - General Family Medicine 10/15/20 documented as of this encounter
--- OUTSIDE RECORDS SUMMARY | 2024-05-13 06:00 | External Medical Summary | Summary of Care ---
Author Name Unknown Organization [facility] Address [address] [place] [address] Phone [phone] Care Team Providers Care Dairy Department Manager Name Role Phone Jaime Garcia MD Primary Care Provide r Reason for Visit * Reason Onset Date Comments Appointment 04/03/2024 Encounter Details Date Type Department Care Team (Late st Contact Info) Description 04/03/2024 Telephone Hematology/Oncology Treatment, [place] [address] [place] [phone] Rosalio Amaral MD [address] [place] [address] Appointment Allergies Active Allergy Reactions Criticality Noted Date Comments Atorvastatin Muscle pain High 03/30/2019 Ezetimibe Muscle pain High 01/25/2020 documented as of this encounter (statuses as of 04/11/2024) Medications Medication Sig Dispensed Refills Start Date End Date Status CPAP every night at bedtime. Active oxygen IN GAS Use 2 L/min(Oxygen) as directed at bedtime. 1 Each 1 Active Extended Stay AmericaTouch Ultra Blue In Vitro Strip (Glucose Blood)Indications:T [...] mL 3 3 06/14/20 24 Active Pen [place] 32G X 4 MM Use as directed. [...] disease, without long-term current use of insulin ([facility]) Use as directed to check blood [...] hemoglobin A1c goal of less than 7.0% ([facility]) take two tablets by mouth in the morning 180 Tablet 1 4 Active DULoxetine HCl 20 MG Oral Capsule Delayed Release Particles (Cymbalta) Take 2 Capsules by mouth in the morning. 180 Capsule 1 4 Active Nystatin 812248 UNIT/ML Mouth/Throat SuspensionIndicatio ns:Multiple myeloma in relapse ([facility]) Swish and swallow 5 mL in [...] Gallego RN - 04/11/2024 9:06 AM EDT [place] plan is signed. * Telephone Encounter - Racquel Gallego [...] Gallego RN - 04/09/2024 7:44 AM EDT [place] still unsigned. Anna: can you please assist in getting beacon plan signed? Patient auth 04/15/24, cannot schedule until we have signed orders. * Telephone Encounter - Racquel Gallego RN - 04/06/2024 8:[address] Amaral: please sign beacon plan. Thanks! * Telephone Encounter - Racquel Gallego RN - 04/05/2024 8:40 AM EDT Referral updated- patient needs to receive infusions by 04/15/24. [place] plan is still not signed. Will need to be signed to schedule. Routed to Dr Amaral/ Anna Daniel to assist with getting this signed. * Telephone Encounter - Racquel Gallego RN - 04/03/2024 4:04 PM EDT Images from the original note were not included. "Anna Daniel RN P [place] Hem/Onc Nurse Pool/Class; [facility] Scheduling [...] immunoglobulin quantitative Teach: no Toxicity Check: no" [place] plan in place, routed for signature [place] plan states site of administration is [facility]- changed to . Once [place] plan is signed and auth is back, patient can be scheduled. documented in this encounter Plan of Treatment Upcoming Encounters Date Type Department Care Team (Late st Contact Info) Description 04/16/2024 10:30 AM EDT Scheduled Telephone [facility], [facility] [address] [facility] [place] [address] [address] [facility] [place] [address] 04/16/2024 2:30 PM EDT Telemedicine Hematology [facility] [place] [address] [facility] [place] [address] Rosalio Amaral MD [address] [facility] [place] [address] 04/18/2024 10:00 AM EDT [facility], [address] [place] [address] Sulma Seth RN [address] [facility] [place] [address] 04/18/2024 11:20 AM EDT Office Visit Family Medicine [address] [place] [phone] Jaime Garcia MD [address] [place] [address] [place] [address] 04/19/2024 9:30 AM EDT Office Visit Cardiology [address] [place] [address] Tim Ruiz PA-C [address] [place] [address] 05/01/2024 2:30 PM EDT [facility], [facility] [address] [facility] [place] [address] Sulma Seth, BOBBY [address] [facility] [place] [address] 05/11/2024 11:40 AM EDT Office Visit Sleep Disorders [facility]tr [facility] [address] [facility] [place] [phone] Tona Mondragon DO [address] [place] [address] 05/15/2024 2:00 PM EDT [facility]med[facility] [address] [place] [address] Thierno Patel PA-C [address] [place] [address] 06/20/2024 3:00 PM EDT Telemedicine Hematology [facility] [place] [address] [place] [address] Rosalio Amaral MD [address] [place] [address] 07/10/2024 9:30 AM EDT Office Visit Cardiology, [facility] [address] [facility] [place] [address] Beth Salter CRNP [address] [place] [address] [place] [address] 10/30/2024 1:45 PM EST Office Visit Urology, [facility] [address] [place] [address] Devyn Paniagua MD [address] [place] [address] 01/01/2025 10:20 AM EDT Office Visit Otolaryngology [facility] [address] [place] [address] Haley Aguero PA-C [address] [place] [address] Health Maintenance Due Date Last Done Comments [...] Additional history exists CKD PHOS USE SMARTSET 22387 03/09/202502/11, 03/08/2024, 03/07/2024, Additional history exists CKD HGB USE SMARTSET 35777 04/09/202504/09, 04/02/2024, 03/26/2024, Additional history exists DTaP,Tdap,and [...] encounter Medical Devices Implanted Type Area Manager Six Sigma Device Identifier Shelf Expiration Date Model / Serial / Lot Port Power Mri W/8fr Cath - [id number] Implanted:Qty: 1 on 09/26/2020 by Simone Michelle MD at OR [facility] Right: Chest CR BARD : PERIPHERAL VASCULAR 10/12/2021 [id number] / / [id number] Description:right IJ Lens Intraoc 19.0 - [id number] - [id number] Implanted:Qty: 1 on 02/03/2021 by Chris Sexton MD at OR [facility] Right: Eye BAUSCH & LOMB 09/11/2025 [id number] / [id number] / Lens Intraoc 19.0 - [id number] - [id number] Implanted:Qty: 1 on 02/24/2021 by Chris Sexton MD at OR [facility] Left: Eye BAUSCH & LOMB 10/12/2025 [id number] / [id number] / [id number] System Urolift - [id number] Implanted:Qty: 2 on 03/17/2023 by Devyn Paniagua MD at OR [facility] N/A: Urethra [employer] 11/18/2023 LY142-4 / / [id number] System Urolift - [id number] Implanted:Qty: 3 on 03/17/2023 by Devyn Paniagua MD at OR [facility] N/A: Urethra [employer] 11/03/2023 RR558-7 / / [id number] documented as of this encounter Additional Health [...] and were consensually agreed upon. Care Teams Dairy Department Manager Relationship Specialty Start Date End Date Jaime Garcia MD [address] [place] [address] [place] [phone] PCP - General Family Medicine 10/15/20 documented as of this encounter
--- OUTSIDE RECORDS SUMMARY | 2024-05-13 06:01 | External Medical Summary | Summary of Care ---
Author Name Unknown Organization [facility] Address [address] [place] [address] Phone [phone] Care Team Providers Care Publicity Director Name Role Phone Jaime Garcia MD Primary Care Provide r Reason for Visit * Reason Onset Date Comments Home Health 04/09/2024 Encounter Details Date Type Department Care Team (Late st Contact Info) Description 04/09/2024 Telephone Family Medicine [address] [phone] Jaime Garcia MD [address] [place] [address] [place] [address] Home Health Allergies Active Allergy Reactions Criticality Noted Date Comments Atorvastatin Muscle pain High 03/30/2019 Ezetimibe Muscle pain High 01/25/2020 documented as of this encounter (statuses as of 04/09/2024) Medications Medication Sig Dispensed Refills Start Date [...] mL 3 06/15/2023 4 Active Pen [place] 32G X 4 MM Use as directed. [...] goal of less than 7.0% ([facility]) take two tablets by mouth in the morning 180 Tablet 1 01/04/2024 Active DULoxetine HCl 20 MG Oral Capsule Delayed Release Particles (Cymbalta) Take 2 Capsules by mouth in the morning. 180 Capsule 1 01/02/2024 Active Nystatin 412568 UNIT/ML Mouth/Throat SuspensionIndicati ons:Multiple myeloma in relapse ([facility]) Swish and swallow 5 mL in the morning and 5 mL at noon and 5 mL in the evening and 5 mL before bedtime. 60 mL 1 01/02/2024 Active Additional Information Patient not taking.Reported on 04/06/2024 Magnesium Chloride 64 MG Oral Tablet Delayed Release (Mag64)Indications :Multiple myeloma in relapse ([facility]) Take 1 Tablet by mouth in the [...] as of this encounter (statuses as of 04/09/2024) Active Problems Problem Noted Date Diagnosed Date [...] without remission 06/14/2014 Overview: Dr Rodriges/ [facility] ADVANCE DIRECTIVE INFORMATION 10/13/2006 Overview: No, Advance Directive brochure offered , patient declined. Degeneration of lumbosacral intervertebral disc 02/19/2005 documented as of this encounter (statuses as of 04/09/2024) Resolved Problems Problem Noted Date Diagnosed Date [...] as of this encounter (statuses as of 04/09/2024) Immunizations Name Administration Dates Next Due COVID-19, [...] Home, [facility] [address] [place] [address] [address] [place] [address] 04/16/2024 2:30 PM EDT Telemedicine H[facility]ology [facility] [place] [address] [place] [address] Rosalio Amaral MD [address] [place] [address] 04/18/2024 10:00 AM EDT [facility], [facility] 132 [facility] [place] [address] Sulma Seth, BOBBY 132 [facility] [place] [address] 04/19/2024 9:30 AM EDT Office Visit Cardiology [address] [place] [address] Tim Ruiz PA-C [address] [place] [address] 05/01/2024 2:30 PM EDT [facility] Visit [facility], [facility] [address] [place] [address] Sulma Seth, BOBBY [address] [place] [address] 05/11/2024 11:40 AM EDT Office Visit [facility] [place] [phone] Tona Mondragon DO [address] [place] [address] 05/15/2024 2:00 PM EDT Telemedicine H[facility]ology [facility] [place] [address] [place] [address] Thierno Patel PA-C [address] [place] [address] 06/20/2024 3:00 PM EDT Telemedicine H[facility]ology [facility] [place] [address] [place] [address] Rosalio Amaral MD [address] [place] [address] 07/10/2024 9:30 AM EDT Office Visit Cardiology, [facility] [place] [address] Beth Salter CRNP [address] [place] [address] [place] [phone] 10/30/2024 1:45 PM EST Office Visit Urology, [facility] [address] [place] [address] Devyn Paniagua MD [address] [place] [address] 01/01/2025 10:20 AM EDT Office Visit Otolaryngology [facility] [address] [place] [address] Haley Aguero PA-C [address] [place] [address] Health Maintenance Due Date Last Done Comments [...] Additional history exists CKD PHOS USE SMARTSET 61772 03/09/202502/11, 03/08/2024, 03/07/2024, Additional history exists CKD HGB USE SMARTSET 21361 04/02/202504/02, 03/26/2024, 03/19/2024, Additional history exists DTaP,Tdap,and [...] this encounter Medical Devices Implanted Type Area Pearl Technician Device Identifier Shelf Expiration Date Model / Serial / Lot Port Power Mri W/8fr Cath - [id number] Implanted:Qty: 1 on 09/26/2020 by Simone Michelle MD at OR [facility] Right: Chest CR BARD : PERIPHERAL VASCULAR 10/12/2021 [id number] / / [id number] Description:right IJ Lens Intraoc 19.0 - [id number] - [id number] Implanted:Qty: 1 on 02/03/2021 by Chris Sexton MD at OR [facility] Right: Eye BAUSCH & LOMB 09/11/2025 [id number] / [id number] / Lens Intraoc 19.0 - [id number] - [id number] Implanted:Qty: 1 on 02/24/2021 by Chris Sexton MD at OR [facility] Left: Eye BAUSCH & LOMB 10/12/2025 [id number] / [id number] System Urolift - [id number] Implanted:Qty: 2 on 03/17/2023 by Devyn Paniagua MD at OR [facility] N/A: Urethra [employer] 11/18/2023 JF289-2 / / [id number] System Urolift - [id number] Implanted:Qty: 3 on 03/17/2023 by Devyn Paniagua MD at OR [facility] N/A: Urethra [employer] 11/03/2023 SZ461-4 / / [id number] documented as of this encounter Additional Health [...] and were consensually agreed upon. Care Teams Publicity Director Relationship Specialty Start Date End Date Jaime Garcia MD [address] [place] [address] [place] [phone] PCP - General Family Medicine 10/15/20 documented as of this encounter
--- OUTSIDE RECORDS SUMMARY | 2024-05-13 06:01 | External Medical Summary | Summary of Care ---
Author Name Unknown Organization [facility] Address [address] [place] [address] Phone [phone] Care Team Providers Care Special Projects Coordinator Name Role Phone Jaime Garcia MD Primary Care Provide r Reason for Visit * Reason Onset Date Comments Appointment 04/03/2024 Encounter Details Date Type Department Care Team (Late st Contact Info) Description 04/03/2024 Telephone Hematology/Oncology Treatment, [facility] [address] [place] [phone] Rosalio Amaral MD [address] [place] [id number] Appointment Allergies Active Allergy Reactions Criticality Noted Date Comments Atorvastatin Muscle pain High 03/30/2019 Ezetimibe Muscle pain High 01/25/2020 documented as of this encounter (statuses as of 04/06/2024) Medications Medication Sig Dispensed Refills Start Date [...] daily DxE11.9 100 Strip 5 03/02/2021 Active LancetsIndications: Type 2 diabetes mellitus with hemoglobin A1c goal of less than 7.0% ([facility]) Test once daily DxE11.9. 100 Each 5 03/02/2021 Active Acyclovir 400 MG Oral Tablet (Zovirax)Indication [...] for Pain, Severe. 10 Tablet 03/17/2023 Active Finasteride 5 MG Oral Tablet (Proscar) [...] 6 mL 3 06/15/2023 4 Active Pen Staley 32G X 4 MM Use as directed. Inject Lantus once daily. 50 Each 3 07/19/2023 Active Icosapent Ethyl 1 GM Oral Capsule (Vascepa)Indication s:Hyperlipidemia with target LDL less than 70 Take 2 Capsules by mouth 2 times a day with morning and evening meals. Swallow capsules whole, do not open or break. 360 Capsule 3 07/20/2023 Active Pantoprazole Sodium 20 MG Oral Tablet Delayed Release (Protonix)Indicatio ns:Gastroesophageal reflux disease without esophagitis TAKE ONE TABLET BY MOUTH EVERY DAY IN THE MORNING 90 Tablet 2 08/31/2023 4 Active Dexcom G7 SensorIndications:T ype 2 diabetes mellitus with stage 3b chronic kidney disease, without long-term current use of insulin (HCC) Use as directed to check blood sugars daily. Change every 10 days 9 Each 3 09/01/2023 Active Ondansetron HCl 8 MG Oral Tablet (Zofran)Indications :Nausea Take 1 Tablet by mouth every 8 hours as needed for Nausea. 30 Tablet 3 09/14/2023 Active Ondansetron 4 MG Oral Tablet Disintegrating (Zofran) 08/08/2023 Active NSS 0.9 % SOLN 100 mL [...] less than 7.0% ([facility]) take two tablets by mouth in the morning 180 Tablet 1 01/04/2024 Active DULoxetine HCl 20 MG Oral Capsule Delayed Release Particles (Cymbalta) Take 2 Capsules by mouth in the morning. 180 Capsule 1 01/02/2024 Active Nystatin 196424 UNIT/ML Mouth/Throat SuspensionIndicatio ns:Multiple myeloma in relapse ([facility]) Swish and swallow 5 mL in the morning and 5 mL at noon and 5 mL in the evening and 5 mL before bedtime. 60 mL 1 01/02/2024 Active Magnesium Chloride 64 MG Oral Tablet Delayed Release (Mag64)Indications: Multiple myeloma in relapse ([facility]) Take 1 Tablet by mouth in the morning and 1 Tablet before bedtime. 180 Tablet 3 01/11/2024 Active Prochlorperazine Maleate 10 MG Oral Tablet (Compazine)Indicati ons:Nausea and vomiting, unspecified vomiting type TAKE ONE TABLET BY MOUTH EVERY SIX HOURS NEEDED FOR NAUSEA 40 Tablet 02/13/2024 Active Folic Acid 400 MCG Oral TabletIndications:L [...] as of this encounter (statuses as of 04/06/2024) Active Problems Problem Noted Date Diagnosed Date [...] as of this encounter (statuses as of 04/06/2024) Resolved Problems Problem Noted Date Diagnosed Date [...] as of this encounter (statuses as of 04/06/2024) Immunizations Name Administration Dates Next Due COVID-19, [...] patient needs to receive infusions by 04/15/24. [place] plan is still not signed. Will need [...] immunoglobulin quantitative Teach: no Toxicity Check: no" [place] plan in place, routed for signature [place] plan states site of administration is [facility]- changed to . Once [place] plan is signed and auth is back, patient can be scheduled. documented in this encounter Plan of Treatment Upcoming Encounters Date Type Department Care Team (Late st Contact Info) Description 04/06/2024 9:30 AM EDT Office Visit Cardiology, [facility] [address] [facility] [place] [address] Beth Salter CRNP [address] [facility] [place] [address] 04/16/2024 10:30 AM EDT Scheduled Telephone [facility] [address] [facility] [place] [address] [address]N [address] [facility] [place] [address] 04/16/2024 2:30 PM EDT Telemedicine H[facility]ology [facility] [place]ree UGARTE [address] [place] [address] Rosalio Amaral MD [address] [facility] [place] [address] 04/18/2024 10:00 AM EDT [facility], [facility] [address] [place] [address] Sulma Seth, BOBBY [address] [place] [address] 04/19/2024 9:30 AM EDT Office Visit Cardiology [address] [place] [address] Tim Ruiz PA-C [address] [place] [address] 05/01/2024 2:30 PM EDT [facility] Visit [facility], [facility] [address] [place] [address] Sulma Seth RN [address] [place] [address] 05/11/2024 11:40 AM EDT Office Visit Sleep Disorders Ctr [facility] [address] [place] [phone] Tona Mondragon DO [address] [place] [address] 05/15/2024 2:00 PM EDT Telemedicine H[facility]ology [facility] [place] U[place] [address] [place] [address] Thierno Patel PA-C [address] [place] [address] 06/20/2024 3:00 PM EDT Telemedicine H[facility] [place] [address] [place] [address] Rosalio Amaral MD [address] [place] [address] 10/30/2024 1:45 PM EST Office Visit Urology, [facility] [address] [place] [address] Devyn Paniagua MD [address] [place] [address] 01/01/2025 10:20 AM EDT Office Visit Otolaryngology [facility] [address] [place] [address] Haley Aguero PA-C 132 [facility] [place] [address] Health Maintenance Due Date Last Done Comments [...] Additional history exists CKD PHOS USE SMARTSET 67376 03/09/202502/11, 03/08/2024, 03/07/2024, Additional history exists CKD HGB USE SMARTSET 50423 04/02/202504/02, 03/26/2024, 03/19/2024, Additional history exists DTaP,Tdap,and [...] this encounter Medical Devices Implanted Type Area Athletic Scout Device Identifier Shelf Expiration Date Model / Serial / Lot Port Power Mri W/8fr Cath - [id number] Implanted:Qty: 1 on 09/26/2020 by Simone Michelle MD at OR [facility] Right: Chest CR BARD : PERIPHERAL VASCULAR 10/12/2021 [id number] / / [id number] Description:right IJ Lens Intraoc 19.0 - [id number] - [id number] Implanted:Qty: 1 on 02/03/2021 by Chris Sexton MD at OR [facility] Right: Eye BAUSCH & LOMB 09/11/2025 [id number] / [id number] / Lens Intraoc 19.0 - [id number] - [id number] Implanted:Qty: 1 on 02/24/2021 by Chris Sexton MD at OR [facility] Left: Eye BAUSCH & LOMB 10/12/2025 [id number] / [id number] / [id number] System Urolift - [id number] Implanted:Qty: 2 on 03/17/2023 by Devyn Paniagua MD at OR [facility] N/A: Urethra [employer] 11/18/2023 QB200-7 / / [id number] System Urolift - [id number] Implanted:Qty: 3 on 03/17/2023 by Devyn Paniagua MD at OR [facility] N/A: Urethra [employer] 11/03/2023 [id number] / / [id number] documented as of this encounter Additional Health [...] and were consensually agreed upon. Care Teams Special Projects Coordinator Relationship Specialty Start Date End Date Jaime Garcia MD [address] [place] [address] [place] [address] PCP - General Family Medicine 10/15/20 documented as of this encounter
--- OUTSIDE RECORDS SUMMARY | 2024-05-13 06:01 | External Medical Summary | Summary of Care ---
Author Name Unknown Organization [facility] Address [address] [place] [address] Phone [phone] Care Team Providers Care Dimension Warehouse Supervisor Name Role Phone Jaime Garcia MD Primary Care Provide r Reason for Visit * Reason Onset Date Comments Home Health 04/09/2024 Encounter Details Date Type Department Care Team (Late st Contact Info) Description 04/09/2024 Telephone Family Medicine [address] [phone] Jaime Garcia MD [address] [place] [address] [place] [address] Home Health Allergies Active Allergy Reactions Criticality [...] 6 mL 3 06/15/2023 4 Active Pen Petroleum 32G X 4 MM Use as directed. [...] disease, without long-term current use of insulin ([facility]) Use as directed to check blood [...] hemoglobin A1c goal of less than 7.0% ([facility]) take two tablets by mouth in the morning 180 Tablet 1 01/04/2024 Active DULoxetine HCl 20 MG Oral Capsule Delayed Release Particles (Cymbalta) Take 2 Capsules by mouth in the morning. 180 Capsule 1 01/02/2024 Active Nystatin 119970 UNIT/ML Mouth/Throat SuspensionIndicati ons:Multiple myeloma in relapse ([facility]) Swish and swallow 5 mL in the morning and 5 mL at noon and 5 mL in the evening and 5 mL before bedtime. 60 mL 1 01/02/2024 Active Additional Information Patient not taking.Reported on 04/06/2024 Magnesium Chloride 64 MG Oral Tablet Delayed Release (Mag64)Indications :Multiple myeloma in relapse ([facility]) Take 1 Tablet by mouth in [...] Description 04/16/2024 10:30 AM EDT Scheduled Telephone [facility], [facility] [address] [place] [address] [address] Back [address]N [address] [place] [address] 04/16/2024 2:30 PM EDT Telemedicine H[facility]ology [facility] Tyree UGARTE [address] [place] [address] Rosalio Amaral MD [address] [place] [address] 04/18/2024 10:00 AM EDT [facility], [facility] [address] [place] [address] Sulma Seth, RN [address] [place] [address] 04/18/2024 11:20 AM EDT Office Visit Family Medicine [address] [place] [phone] Jaime Garcia MD [address] [place] [address] [place] [address] 04/19/2024 9:30 AM EDT Office Visit Cardiology [address] [place] [address] Tim Riuz PAPageC [address] [place] [address] 05/01/2024 2:30 PM EDT Home Visit [facility], [facility] [address] [place] [address] Sulma Seth, RN [address] [place] [address] 05/11/2024 11:40 AM EDT Office Visit Sleep Disorders Ctr [facility] [address] [place] [phone] Tona Mondragon DO [address] [place] [address] 05/15/2024 2:00 PM EDT Telemedicine Hematology [facility]cology [facility], [place] [address] [facility] [place] [address] Thierno Patel PA-C [address] [facility] [place] [address] 06/20/2024 3:00 PM EDT Telemedicine Hematology [facility] [place]ree UGARTE [address] [facility] [place] [address] Rosalio Amaral MD [address] [facility] [place] [address] 07/10/2024 9:30 AM EDT Office Visit Cardiology, [facility] [address] [facility] [place] [address] Beth Salter CRNP 400 [facility] [place] [address] 10/30/2024 1:45 PM EST Office Visit Urology, [facility] [address] [facility] [place] [address] Devyn Paniagua MD 27 [facility] [place] [address] 01/01/2025 10:20 AM EDT Office Visit Otolaryngology [facility] [address] [facility] [place] [address] Haley Aguero PA-C 132 [facility] [place] [address] Health Maintenance Due Date Last Done Comments [...] Additional history exists CKD PHOS USE SMARTSET 91349 03/09/202502/11, 03/08/2024, 03/07/2024, Additional history exists CKD HGB USE SMARTSET 63169 04/02/202504/02, 03/26/2024, 03/19/2024, Additional history exists DTaP,Tdap,and [...] this encounter Medical Devices Implanted Type Area Sheet Metal Operator Device Identifier Shelf Expiration Date Model / Serial / Lot Port Power Mri W/8fr Cath - [id number] Implanted:Qty: 1 on 09/26/2020 by Simone Michelle MD at OR [facility] Right: Chest CR BARD : PERIPHERAL VASCULAR 10/12/2021 [id number] / / [id number] Description:right IJ Lens Intraoc 19.0 - [id number] - [id number] Implanted:Qty: 1 on 02/03/2021 by Chris Sexton MD at OR [facility] Right: Eye BAUSCH & LOMB 09/11/2025 [id number] / [id number] / Lens Intraoc 19.0 - [id number] - [id number] Implanted:Qty: 1 on 02/24/2021 by Chris Sexton MD at OR [facility] Left: Eye BAUSCH & LOMB 10/12/2025 [id number] / [id number] / [id number] System Urolift - [id number] Implanted:Qty: 2 on 03/17/2023 by Devyn Paniagua MD at OR [facility] N/A: Urethra [employer] 11/18/2023 PF506-4 / / [id number] System Urolift - [id number] Implanted:Qty: 3 on 03/17/2023 by Devyn Paniagua MD at OR [facility] N/A: Urethra [employer] 11/03/2023 ZW328-1 / / [id number] documented as of this encounter Additional Health [...] and were consensually agreed upon. Care Teams Dimension Warehouse Supervisor Relationship Specialty Start Date End Date Jaime Garcia MD [address] [place] [address] [place] [address] PCP - General Family Medicine 10/15/20 documented as of this encounter
--- OUTSIDE RECORDS SUMMARY | 2024-05-13 06:01 | External Medical Summary | Summary of Care ---
Author Name Unknown Organization [facility] Address [address] [place] [address] Phone [phone] Care Team Providers Care Hypoid Gear Generator Name Role Phone Jaime Garcia MD Primary Care Provide r Encounter Details Date Type Department Care Team (Late st Contact Info) Description 04/05/2024 Telephone Pharmacy, [address] [place] [address] Barbara [facility] [place] [address] Allergies Active Allergy Reactions Criticality Noted Date Comments Atorvastatin Muscle pain High 03/30/2019 Ezetimibe Muscle pain High 01/25/2020 documented as of this encounter (statuses as of 04/05/2024) Medications Medication Sig Dispensed Refills Start Date End Date Status CPAP every night at bedtime. Active oxygen IN GAS Use 2 L/min(Oxygen) as directed at bedtime. 1 Each 11/11/2020 Active OneTouch Ultra Blue In Vitro Strip (Glucose Blood)Indications:T ype 2 diabetes mellitus with hemoglobin A1c goal of less than 7.0% ([facility]) Use as directed daily. Test once [...] 6 mL 3 06/15/2023 4 Active Pen [place] 32G X 4 MM Use as directed. [...] hemoglobin A1c goal of less than 7.0% ([facility]) take two tablets by mouth in the morning 180 Tablet 1 01/04/2024 Active DULoxetine HCl 20 MG Oral Capsule Delayed Release Particles (Cymbalta) Take 2 Capsules by mouth in the morning. 180 Capsule 1 01/02/2024 Active Nystatin 066792 UNIT/ML Mouth/Throat SuspensionIndicatio ns:Multiple myeloma in relapse [...] as of this encounter (statuses as of 04/05/2024) Active Problems Problem Noted Date Diagnosed Date [...] remission 06/14/2014 Overview: Dr Rodriges/ [facility] ADVANCE DIRECTIVE INFORMATION 10/13/2006 Overview: No, Advance Directive brochure offered , patient declined. Degeneration of lumbosacral intervertebral disc 02/19/2005 documented as of this encounter (statuses as of 04/05/2024) Resolved Problems Problem Noted Date Diagnosed Date [...] as of this encounter (statuses as of 04/05/2024) Immunizations Name Administration Dates Next Due COVID-19, [...] Telephone Encounter - Barbara Jiménez RPh - 04/05/2024 9:11 AM EDT Created in error. Barbara Jiménez RPh, PharmD Clinical Pharmacist - Dormitory Keeper Medication Therapy [facility] 04/05/2024, 9:12 AM [phone] documented in this encounter Plan of Treatment Upcoming Encounters Date Type Department Care Team (Late st Contact Info) Description 04/06/2024 9:30 AM EDT Office Visit Cardiology, [facility] 132 [facility] [place] [address] Beth Salter CRNP [address] [place] [address] [place] [address] 04/16/2024 10:30 AM EDT Scheduled Telephone [facility], [facility] [address] [place] [address] [address] Back [address]N [address] [place] [address] 04/16/2024 2:30 PM EDT [facility]med[facility] [address] [place] [address] Rosalio Amaral MD [address] [facility] [place] [address] 04/18/2024 10:00 AM EDT [facility], [facility] 132 [place] [address] Sulma Seth RN [address] [place] [address] 04/19/2024 9:30 AM EDT Office Visit Cardiology [address] [place] [address] Tim Ruiz PA-C [address] [place] [address] 05/01/2024 2:30 PM EDT [facility] Visit [facility], [facility] [address] [place] [address] Sulma Seth, BOBBY [address] [place] [address] 05/11/2024 11:40 AM EDT Office Visit Sleep Disorders Ctr [facility] [address] [place] [phone] Tona Mondragon DO [address] [place] [address] 05/15/2024 2:00 PM EDT Telemedicine [facility] [address] [place] [address] Thierno Patel, LALA [address] [place] [address] 06/20/2024 3:00 PM EDT Telemedicine H[facility]ology [facility] Tyree Jordan [address] [place] [address] Rosalio Amaral MD [address] [place] [address] 10/30/2024 1:45 PM EST Office Visit [facility], [facility] [place] [address] Devyn Paniagua MD 27 [facility] [place] [address] 01/01/2025 10:20 AM EDT Office Visit Otol[facility]ology [facility] [address] [place] [address] Haley Aguero PA-C 132 [facility] [place] [address] Health Maintenance Due Date Last Done Comments [...] Additional history exists CKD PHOS USE SMARTSET 88905 03/09/202502/11, 03/08/2024, 03/07/2024, Additional history exists CKD HGB USE SMARTSET 87150 04/02/202504/02, 03/26/2024, 03/19/2024, Additional history exists DTaP,Tdap,and [...] this encounter Medical Devices Implanted Type Area Spool Cleaner Hand Device Identifier Shelf Expiration Date Model / Serial / Lot Port Power Mri W/8fr Cath - [id number] Implanted:Qty: 1 on 09/26/2020 by Simone Michelle MD at OR [facility] Right: Chest CR BARD : PERIPHERAL VASCULAR 10/12/2021 [id number] / / [id number] Description:right IJ Lens Intraoc 19.0 - [id number] - [id number] Implanted:Qty: 1 on 02/03/2021 by Chris Sexton MD at OR [facility] Right: Eye BAUSCH & LOMB 09/11/2025 [id number] / [id number] / Lens Intraoc 19.0 - [id number] - [id number] Implanted:Qty: 1 on 02/24/2021 by Chris Sexton MD at OR [facility] Left: Eye BAUSCH & LOMB 10/12/2025 [id number] / [id number] / [id number] System Urolift - [id number] Implanted:Qty: 2 on 03/17/2023 by Devyn Paniagua MD at OR [facility] N/A: Urethra [employer] 11/18/2023 FH500-9 / / [id number] System Urolift - [id number] Implanted:Qty: 3 on 03/17/2023 by Devyn Paniagua MD at OR [facility] N/A: Urethra [employer] 11/03/2023 GR092-8 / / [id number] documented as of this encounter Additional Health [...] and were consensually agreed upon. Care Teams Hypoid Gear Generator Relationship Specialty Start Date End Date Jaime Garcia MD [address] [place] [address] [place] [address] PCP - General Family Medicine 10/15/20 documented as of this encounter
--- OUTSIDE RECORDS SUMMARY | 2024-05-13 06:01 | External Medical Summary | Summary of Care ---
Author Name Unknown Organization [facility] Address [address] [place] [address] Phone [phone] Care Team Providers Care Sales Compensation Analyst Name Role Phone Jaime Garcia MD Primary Care Provide r Reason for Visit * Reason Onset Date Comments Appointment 04/03/2024 Encounter Details Date Type Department Care Team (Late st Contact Info) Description 04/03/2024 Telephone Hematology/Oncology Treatment, [place] [address] [place] [address] Rosalio Amaral MD [address] [place] [address] Appointment Allergies Active Allergy Reactions Criticality Noted Date Comments Atorvastatin Muscle pain High 03/30/2019 Ezetimibe Muscle pain High 01/25/2020 documented as of this encounter (statuses as of 04/09/2024) Medications Medication Sig Dispensed Refills Start Date End Date Status CPAP every night at bedtime. Active oxygen IN GAS Use 2 L/min(Oxygen) as directed at bedtime. 1 Each 1 Active RidleyTouch Ultra Blue In Vitro Strip (Glucose Blood)Indications:T [...] mL 3 3 06/14/20 24 Active Pen [place] 32G X 4 MM Use as directed. [...] less than 7.0% ([facility]) take two tablets by mouth in the morning 180 Tablet 1 4 Active DULoxetine HCl 20 MG Oral Capsule Delayed Release Particles (Cymbalta) Take 2 Capsules by mouth in the morning. 180 Capsule 1 4 Active Nystatin 706331 UNIT/ML Mouth/Throat SuspensionIndicatio ns:Multiple myeloma in relapse [...] Gallego RN - 04/09/2024 7:44 AM EDT [place] still unsigned. Anna: can you please assist in getting beacon plan signed? Patient auth 04/15/24. * Telephone Encounter - Racquel Gallego RN - 04/06/2024 8:[address] Amaral: please sign beacon plan. Thanks! * Telephone Encounter - Racquel Gallego RN - 04/05/2024 8:40 AM EDT Referral updated- patient needs to receive infusions by 04/15/24. [place] plan is still not signed. Will need to be signed to schedule. Routed to Dr Amaral/ Anna Daniel to assist with getting this signed. * Telephone Encounter - Racquel Gallego RN - 04/03/2024 4:04 PM EDT Images from the original note were not included. "Anna Daniel RN P [facility] Hem/Onc Nurse Pool/Class; Pepe Renae Hem/Onc [...] immunoglobulin quantitative Teach: no Toxicity Check: no" [place] plan in place, routed for signature [place] plan states site of administration is [facility]- changed to [facility]. Once beacon plan is signed and auth is back, patient can be scheduled. documented in this encounter Plan of Treatment Upcoming Encounters Date Type Department Care Team (Late st Contact Info) Description 04/16/2024 10:30 AM EDT Scheduled Telephone [facility], [facility] [address] [facility] [place] [address] Yecenia Back, RDN [address] [facility] [place] [address] 04/16/2024 2:30 PM EDT [facility]medicine [facility] [address] [place] [address] Rosalio Amaral MD [address] [place] [address] 04/18/2024 10:00 AM EDT [facility], [facility] [address] [place] [address] Sulma Seth, RN [address] [place] [address] 04/19/2024 9:30 AM EDT Office Visit Cardiology [address] [place] [address] Tim Ruiz PAPageC [address] [place] [address] 05/01/2024 2:30 PM EDT [facility], [facility] [address] [place] [address] Sulma Seth, RN [address] [place] [address] 05/11/2024 11:40 AM EDT Office Visit Sleep Disorders Ctr [facility] [address] [place] [phone] Tona Mondragon DO [address] [place] [address] 05/15/2024 2:00 PM EDT Telemedicine [facility] [address] [place] [address] Thierno Patel, PAPageC [address] [place] [address] 06/20/2024 3:00 PM EDT Telemedicine H[facility]ology [facility] Tyree UGARTE [address] [facility] [place] [address] Rosalio Amaral MD [address] [place] [address] 07/10/2024 9:30 AM EDT Office Visit Cardiology, [facility] [address] [facility] [place] [address] Beth Salter CRNP [address] [facility] [place] [address] 10/30/2024 1:45 PM EST Office Visit Urology, [facility] [address] [facility] [place] [address] Devyn Paniagua MD [address] [facility] [place] [address] 01/01/2025 10:20 AM EDT Office Visit Otol[facility]ology [facility] [address] [facility] [place] [address] Haley Aguero PA-C 132 [facility] [place] [address] Health Maintenance Due Date Last Done Comments [...] Additional history exists CKD PHOS USE SMARTSET 93801 03/09/202502/11, 03/08/2024, 03/07/2024, Additional history exists CKD HGB USE SMARTSET 31011 04/02/202504/02, 03/26/2024, 03/19/2024, Additional history exists DTaP,Tdap,and [...] this encounter Medical Devices Implanted Type Area Inventory Planner Device Identifier Shelf Expiration Date Model / Serial / Lot Port Power Mri W/8fr Cath - [id number] Implanted:Qty: 1 on 09/26/2020 by Simone Michelle MD at OR [facility] Right: Chest CR BARD : PERIPHERAL VASCULAR 10/12/2021 [id number] / / [id number] Description:right IJ Lens Intraoc 19.0 - [id number] - [id number] Implanted:Qty: 1 on 02/03/2021 by Chris Sexton MD at OR [facility] Right: Eye BAUSCH & LOMB 09/11/2025 [id number] / [id number] / Lens Intraoc 19.0 - [id number] - [id number] Implanted:Qty: 1 on 02/24/2021 by Chris Sexton MD at OR [facility] Left: Eye BAUSCH & LOMB 10/12/2025 [id number] / [id number] / [id number] System Urolift - [id number] Implanted:Qty: 2 on 03/17/2023 by Devyn Paniagua MD at OR [facility] N/A: Urethra [employer] 11/18/2023 US463-1 / / [id number] System Urolift - [id number] Implanted:Qty: 3 on 03/17/2023 by Devyn Paniagua MD at OR [facility] N/A: Urethra [employer] 11/03/2023 NS388-6 / / [id number] documented as of this encounter Additional Health [...] and were consensually agreed upon. Care Teams Sales Compensation Analyst Relationship Specialty Start Date End Date Jaime Garcia MD [address] [place] [address] [place] [address] PCP - General Family Medicine 10/15/20 documented as of this encounter
--- OUTSIDE RECORDS SUMMARY | 2024-05-13 06:01 | External Medical Summary | Summary of Care ---
Author Name Unknown Organization [facility] Address [address] [place] [address] Phone [phone] Care Team Providers Care Pipe Out Worker Name Role Phone Jaime Garcia MD Primary Care Provide r Reason for Visit * Reason Onset Date Comments Appointment 04/03/2024 Encounter Details Date Type Department Care Team (Late st Contact Info) Description 04/03/2024 Telephone Hematology/Oncology Treatment, [place] [address] [place] [address] Rosalio Amaral MD [address] [place] [address] Appointment Allergies Active Allergy Reactions Criticality Noted Date Comments Atorvastatin Muscle pain High 03/30/2019 Ezetimibe Muscle pain High 01/25/2020 documented as of this encounter (statuses as of 04/09/2024) Medications Medication Sig Dispensed Refills Start Date End Date Status CPAP every night at bedtime. Active oxygen IN GAS Use 2 L/min(Oxygen) as directed at bedtime. 1 Each 1 Active Radiator Labs, IncTouch Ultra Blue In Vitro Strip (Glucose Blood)Indications:T [...] mL 3 3 06/14/20 24 Active Pen [place] 32G X 4 MM Use as [...] morning. 180 Capsule 1 4 Active Nystatin 067301 UNIT/ML Mouth/Throat SuspensionIndicatio ns:Multiple myeloma in relapse ([facility]) Swish and swallow 5 mL in the [...] Gallego RN - 04/09/2024 7:44 AM EDT [place] still unsigned. Anna: can you please assist in getting beacon plan signed? Patient auth 04/15/24, cannot schedule until we have signed orders. * Telephone Encounter - Racquel Gallego RN - 04/06/2024 8:[address] Amaral: please sign beacon plan. Thanks! * Telephone Encounter - Racquel Gallego RN - 04/05/2024 8:40 AM EDT Referral updated- patient needs to receive infusions by 04/15/24. [place] plan is still not signed. Will need to be signed to schedule. Routed to Dr Amaral/ Anna Daniel to assist with getting this signed. * Telephone Encounter - Racquel Gallego RN - 04/03/2024 4:04 PM EDT Images from the original note were not included. "Anna Daniel RN P [facility] [place] Hem/Onc Nurse Pool/Class; [place] [facility] Hem/Onc Scheduling Pool/Class Please schedule patient [...] immunoglobulin quantitative Teach: no Toxicity Check: no" [place] plan in place, routed for signature [place] plan states site of administration is [facility]- changed to [facility]. Once beacon plan is signed and auth is back, patient can be scheduled. documented in this encounter Plan of Treatment Upcoming Encounters Date Type Department Care Team (Late st Contact Info) Description 04/16/2024 10:30 AM EDT Scheduled Telephone [facility], [facility] [address] [facility] [place] [address] Yecenia Back, ALEXANDREN [address] [facility] [place] [address] 04/16/2024 2:30 PM EDT Telemedicine Hematology [facility] [address] [place] [address] Rosalio Amaral MD [address] [place] [address] 04/18/2024 10:00 AM EDT [facility], [facility] [address] [place] [address] Sulma Seth, BOBBY [address] [place] [address] 04/19/2024 9:30 AM EDT Office Visit Cardiology [address] [place] [address] Tim Ruiz PA-C [address] [place] [address] 05/01/2024 2:30 PM EDT [facility], [facility] [address] [place] [address] Sulma Seth, BOBBY [address] [place] [address] 05/11/2024 11:40 AM EDT Office Visit Sleep Disorders Ctr [facility] [address] [place] [phone] Tona Mondragon DO [address] [place] [address] 05/15/2024 2:00 PM EDT Telemedicine Hematology [facility] Tyree Jordan [address] [place] [address] Thierno Patel PA-C [address] [place] [address] 06/20/2024 3:00 PM EDT Telemedicine H[facility]ology [facility] [place]ree [address] [facility] [place] [address] Rosalio Amaral MD [address] [facility] [place] [address] 07/10/2024 9:30 AM EDT Office Visit Cardiology, [facility] [address] [facility] [place] [address] Beth Salter CRNP [address] [facility] [place] [address] 10/30/2024 1:45 PM EST Office Visit Urology, [facility] [address] [facility] [place] [address] Devyn Paniagua MD [address] [facility] [place] [address] 01/01/2025 10:20 AM EDT Office Visit Otolaryngology [facility] [address] [facility] [place] [address] Haley Aguero PA-C [address] [facility] [place] [address] Health Maintenance Due Date Last Done Comments [...] Additional history exists CKD PHOS USE SMARTSET 47335 03/09/202502/11, 03/08/2024, 03/07/2024, Additional history exists CKD HGB USE SMARTSET 52968 04/02/202504/02, 03/26/2024, 03/19/2024, Additional history exists DTaP,Tdap,and [...] encounter Medical Devices Implanted Type Area Manager Transition Device Identifier Shelf Expiration Date Model / Serial / Lot Port Power Mri W/8fr Cath - [id number] Implanted:Qty: 1 on 09/26/2020 by Simone Michelle MD at OR [facility] Right: Chest CR BARD : PERIPHERAL VASCULAR 10/12/2021 [id number] / / [id number] Description:right IJ Lens Intraoc 19.0 - [id number] - [id number] Implanted:Qty: 1 on 02/03/2021 by Chris Sexton MD at OR [facility] Right: Eye BAUSCH & LOMB 09/11/2025 [id number] / [id number] / Lens Intraoc 19.0 - [id number] - [id number] Implanted:Qty: 1 on 02/24/2021 by Chris Sexton MD at OR [facility] Left: Eye BAUSCH & LOMB 10/12/2025 [id number] / [id number] / [id number] System Urolift - [id number] Implanted:Qty: 2 on 03/17/2023 by Devyn Paniagua MD at OR [facility] N/A: Urethra [employer] 11/18/2023 OR341-7 / / [id number] System Urolift - [id number] Implanted:Qty: 3 on 03/17/2023 by Devyn Paniagua MD at OR [facility] N/A: Urethra [employer] 11/03/2023 MJ132-5 / / [id number] documented as of this encounter Additional Health [...] and were consensually agreed upon. Care Teams Pipe Out Worker Relationship Specialty Start Date End Date Jaime Garcia MD [address] [place] [address] [place] [address] PCP - General Family Medicine 10/15/20 documented as of this encounter
--- OUTSIDE RECORDS SUMMARY | 2024-05-13 06:01 | External Medical Summary | Summary of Care ---
Author Name Unknown Organization [facility] Address [address] [place] [address] Phone [phone] Care Team Providers Care Sales Solutions Representative Name Role Phone Jaime Garcia MD Primary Care Provide r Reason for Visit * Reason Onset Date Comments Appointment 04/03/2024 Encounter Details Date Type Department Care Team (Late st Contact Info) Description 04/03/2024 Telephone Hematology/Oncology Treatment, [place] [address] [place] [address] Rosalio Amaral MD [address] [place] [address] Appointment Allergies Active Allergy Reactions Criticality Noted Date Comments Atorvastatin Muscle pain High 03/30/2019 Ezetimibe Muscle pain High 01/25/2020 documented as of this encounter (statuses as of 04/10/2024) Medications Medication Sig Dispensed Refills Start Date End Date Status CPAP every night at bedtime. Active oxygen IN GAS Use 2 L/min(Oxygen) as directed at bedtime. 1 Each 1 Active U.S. Local News NetworkTouch Ultra Blue In Vitro Strip (Glucose Blood)Indications:T [...] mL 3 3 06/14/20 24 Active Pen [place] 32G X 4 MM Use as directed. [...] long-term current use of insulin ([facility]) Use as directed to check [...] than 7.0% ([facility]) take two tablets by mouth in the morning 180 Tablet 1 4 Active DULoxetine HCl 20 MG Oral Capsule Delayed Release Particles (Cymbalta) Take 2 Capsules by mouth in the morning. 180 Capsule 1 4 Active Nystatin 341411 UNIT/ML Mouth/Throat SuspensionIndicatio ns:Multiple myeloma in relapse ([facility]) Swish and swallow 5 mL [...] Gallego RN - 04/09/2024 7:44 AM EDT [place] still unsigned. Anna: can you please assist in getting beacon plan signed? Patient auth 04/15/24, cannot schedule until we have signed orders. * Telephone Encounter - Racquel Gallego RN - 04/06/2024 8:[address] Amaral: please sign beacon plan. Thanks! * Telephone Encounter - Racquel Gallego RN - 04/05/2024 8:40 AM EDT Referral updated- patient needs to receive infusions by 04/15/24. [place] plan is still not signed. Will need to be signed to schedule. Routed to Dr Amaral/ Anna Daniel to assist with getting this signed. * Telephone Encounter - Racquel Gallego RN - 04/03/2024 4:04 PM EDT Images from the original note were not included. "Anna Daniel RN P [facility] Hem/Onc Nurse Pool/Class; Pepe [facility] [place] Hem/Onc Scheduling Pool/Class Please schedule patient [...] immunoglobulin quantitative Teach: no Toxicity Check: no" [place] plan in place, routed for signature [place] plan states site of administration is [facility]- changed to [facility]. Once beacon plan is signed and auth is back, patient can be scheduled. documented in this encounter Plan of Treatment Upcoming Encounters Date Type Department Care Team (Late st Contact Info) Description 04/16/2024 10:30 AM EDT Scheduled Telephone [facility], [facility] [address] [facility] [place] [address] Yecenia Back RDN [address] [facility] [place] [address] 04/16/2024 2:30 PM EDT Telemedicine [facility] [address] [facility] [place] [address] Rosalio Amaral MD [address] [facility] [place] [address] 04/18/2024 10:00 AM EDT [facility] [place], [facility] [address] [place] [address] Sulma Seth RN [address] [place] [address] 04/18/2024 11:20 AM EDT Office Visit Family Medicine [address] [place] [phone] Jaime Garcia MD [address] [place] [address] [place] [address] 04/19/2024 9:30 AM EDT Office Visit Cardiology [address] [place] [address] Tim Ruiz PA-C [address] [place] [address] 05/01/2024 2:30 PM EDT [facility] Visit [facility] [place], [facility] [address] [place] [address] Sulma Seth, BOBBY 132 [facility] [place] [address] 05/11/2024 11:40 AM EDT Office Visit [facility] Disorders Ctr [facility] [address] [facility] [place] [phone] Tona Mondragon DO 132 [facility] [place] [address] 05/15/2024 2:00 PM EDT Telemedicine H[facility]ology [facility] [address] [place] [address] Thierno Patel PA-C [address] [place] [address] 06/20/2024 3:00 PM EDT Telemedicine H[facility]ology [facility] [address] [place] [address] Rosalio Amaral MD [address] [place] [address] 07/10/2024 9:30 AM EDT Office Visit Cardiology, [facility] [address] [facility] [place] [address] Beth Salter CRNP 400 [facility] [place] [address] 10/30/2024 1:45 PM EST Office Visit Urology, [facility] [address] [facility] [place] [address] Devyn Paniagua MD [address] [place] [address] 01/01/2025 10:20 AM EDT Office Visit Otolaryngology [facility] system [address] [place] [address] Haley Aguero PA-C [address] [place] [address] Health Maintenance Due Date Last Done Comments [...] Additional history exists CKD PHOS USE SMARTSET 65515 03/09/202502/11, 03/08/2024, 03/07/2024, Additional history exists CKD HGB USE SMARTSET 25693 04/02/202504/02, 03/26/2024, 03/19/2024, Additional history exists DTaP,Tdap,and [...] this encounter Medical Devices Implanted Type Area Shaper Operator Device Identifier Shelf Expiration Date Model / Serial / Lot Port Power Mri W/8fr Cath - [id number] Implanted:Qty: 1 on 09/26/2020 by Simone Michelle MD at OR [facility] Right: Chest CR BARD : PERIPHERAL VASCULAR 10/12/2021 [id number] / / [id number] Description:right IJ Lens Intraoc 19.0 - [id number] - [id number] Implanted:Qty: 1 on 02/03/2021 by Chris Sexton MD at OR [facility] Right: Eye BAUSCH & LOMB 09/11/2025 [id number] / [id number] / Lens Intraoc 19.0 - [id number] - [id number] Implanted:Qty: 1 on 02/24/2021 by Chris Sexton MD at OR [facility] Left: Eye BAUSCH & LOMB 10/12/2025 [id number] / [id number] System Urolift - [id number] Implanted:Qty: 2 on 03/17/2023 by Devyn Paniagua MD at OR [facility] N/A: Urethra [employer] 11/18/2023 QR749-1 / / [id number] System Urolift - [id number] Implanted:Qty: 3 on 03/17/2023 by Devyn Paniagua MD at OR [facility] N/A: Urethra [employer]OT[employer] 11/03/2023 UO721-6 / / [id number] documented as of this encounter Additional Health [...] were consensually agreed upon. Care Teams Sales Solutions Representative Relationship Specialty Start Date End Date Jaime Garcia MD [address] [place] [address] [place] [address] PCP - General Family Medicine 10/15/20 documented as of this encounter
--- OUTSIDE RECORDS SUMMARY | 2024-05-13 06:02 | External Medical Summary | Summary of Care ---
Author Name Unknown Organization [facility] Address [address] [place] [address] Phone [phone] Care Team Providers Care Jewelry Engraver Name Role Phone Jaime Garcia MD Primary Care Provide r Reason for Visit * Reason Comments Dosage Adjustment In Person (Anticoag Cl inic) Encounter Details Date Type Department Care Team (Latest Contact Info) Description 04/05/2024 9:00 AM EDT Anticoagulation Pharmacy, [address] [place] [address] [place] [address] Anticoagulation management encounter*; PAF (paroxysmal atrial fibrillation) ([facility]) Allergies Active Allergy Reactions Criticality Noted Date [...] 6 mL 3 06/15/2023 4 Active Pen [place] 32G X 4 MM Use as directed. [...] less than 7.0% ([facility]) take two tablets by mouth in the morning 180 Tablet 1 01/04/2024 Active DULoxetine HCl 20 MG Oral Capsule Delayed Release Particles (Cymbalta) Take 2 Capsules by mouth in the morning. 180 Capsule 1 01/02/2024 Active Nystatin 959963 UNIT/ML Mouth/Throat SuspensionIndicatio ns:Multiple myeloma in relapse ([facility]) Swish and swallow 5 mL in the morning and 5 mL at noon and 5 mL in the evening and 5 mL before bedtime. 60 mL 1 01/02/2024 Active Magnesium Chloride 64 MG Oral Tablet Delayed Release (Mag64)Indications: Multiple myeloma in relapse ([facility]) Take 1 Tablet by mouth in the [...] remission 06/14/2014 Overview: Dr Rodriges/ [facility] ADVANCE DIRECTIVE INFORMATION 10/13/2006 Overview: No, Advance [...] this encounter Progress Notes * Barbara Jiménez, [facility] - 04/05/2024 9:01 AM EDT Images from the original note were not included. Medication Therapy Disease Management - Anticoagulation Patient: Jerardo Ochoa Jr. | : 1970 Subjective Patient-Reported Symptoms: Patient Findings Positives: Change in medications Negatives: Signs/symptoms of thrombosis, Signs/symptoms of bleeding, Change in health, Change in alcohol use, Change in activity, Upcoming invasive procedure, Missed doses, Extra doses, Change in diet/appetite, Bruising Objective Current Warfarin Dose As of 04/05/2024 Warfarin maintenance plan: 1.25 mg (2.5 mg x 0.5) every day INR Result As of 04/05/2024 INR goal: 2.0-3.0 INR used for dosin.1 (04/05/2024) Assessment & Plan Warfarin Plan As of 04/05/2024 Full warfarin instructions: 1.25 mg every day Next INR check: N/a Patient transitioned to Eliquis while admitted. Confirmed no longer taking warfarin. Rx already sent to [place] pharmacy. Will plan to discharge at this time. Thank you for allowing us to participate in the care of this patient. Episode resolved. INR orders discontinued. Removed from [facility] clinic roster. Barbara Jiménez [facility], PharmD Clinical Pharmacist Medication Therapy Disease Management 04/05/2024, 9:10 AM documented in this encounter Plan of Treatment Upcoming Encounters Date Type Department Care Team (Late st Contact Info) Description 04/06/2024 9:30 AM EDT Office Visit Cardiology, [facility] [address] [place] [address] Beth Salter CRNP [address] [place] [address] [place] [address] 04/16/2024 10:30 AM EDT Scheduled Telephone [facility], [facility] [address] [facility] [place] [address] Yecenia Back RDN [address] [facility] [place] [address] 04/16/2024 2:30 PM EDT [facility]med[facility] [address] [facility] [place] [address] Rosalio Amaral MD [address] [facility] [place] [address] 04/18/2024 10:00 AM EDT [facility], [facility] [address] [place] [address] Sulma Seth, BOBBY [address] [place] [address] 04/19/2024 9:30 AM EDT Office Visit Cardiology [address] [place] [address] Tim Ruiz PA-C [address] [place] [address] 05/01/2024 2:30 PM EDT [facility] Visit [facility] [place], [facility] [address] [place] [address] Sulma Seth RN [address] [place] [address] 05/11/2024 11:40 AM EDT Office Visit Sleep Disorders Ctr [facility] [address] [place] [phone] Tona Mondragon DO [address] [place] [address] 05/15/2024 2:00 PM EDT Telemedicine [facility] Tyree Jordan [address] [place] [address] Thierno Patel PA-C [address] [place] [address] 06/20/2024 3:00 PM EDT Telemedicine [facility] Tyree UGARTE [address] [place] [address] Rosalio Amaral MD [address] [place] [address] 10/30/2024 1:45 PM EST Office Visit Urology, [facility] [address] [place] [address] Devyn Paniagua MD [address] [place] [address] 01/01/2025 10:20 AM EDT Office Visit Otolaryngology [facility] [address] [place] [address] Haley Aguero PA-C [address] [place] [address] Health Maintenance Due Date Last Done Comments [...] Additional history exists CKD PHOS USE SMARTSET 18825 03/09/202502/11, 03/08/2024, 03/07/2024, Additional history exists CKD HGB USE SMARTSET 79777 04/02/202504/02, 03/26/2024, 03/19/2024, Additional history exists DTaP,Tdap,and [...] this encounter Medical Devices Implanted Type Area Principal Gifts Officer Device Identifier Shelf Expiration Date Model / Serial / Lot Port Power Mri W/8fr Cath - [id number] Implanted:Qty: 1 on 09/26/2020 by Simone Michelle MD at OR [facility] Right: Chest CR BARD : PERIPHERAL VASCULAR 10/12/2021 [id number] / / [id number] Description:right IJ Lens Intraoc 19.0 - [id number] - [id number] Implanted:Qty: 1 on 02/03/2021 by Chris Sexton MD at OR [facility] Right: Eye BAUSCH & LOMB 09/11/2025 [id number] / [id number] / Lens Intraoc 19.0 - [id number] - [id number] Implanted:Qty: 1 on 02/24/2021 by Chris Sexton MD at [facility] Left: Eye BAUSCH & LOMB 10/12/2025 [id number] / [id number] / [id number] System Urolift - [id number] Implanted:Qty: 2 on 03/17/2023 by Devyn Paniagua MD at OR [facility] N/A: Urethra [employer] 11/18/2023 [id number] / / [id number] System Urolift - [id number] Implanted:Qty: 3 on 03/17/2023 by Devyn Paniagua MD at OR [facility] N/A: Urethra [employer] 11/03/2023 [id number] / / [id number] documented as of this encounter Procedures Procedure Name Priority Date/Time Associated Diagnosis Comments INR FINGERSTICK, POINT OF CARE STAT 04/05/2024 9:07 AM EDT PAF (paroxysmal atrial fibrillation) (HCC) Anticoagulation management encounter documented in this encounter Results * INR FINGERSTICK, POINT OF CARE (04/05/2024 9:07 AM EDT) Fingerstick INR 1.1 INR 9:09 AM EDT [facility] Blood 04/05/2024 9:07 AM EDT 04/05/2024 9:09 AM EDT Narrative [facility] - 04/05/2024 9:09 AM EDT Therapeutic ranges for non-operative patients: Prophylaxsis/treatment of DVT: (Range:2.0-3.0) Treatment of pulmonary embolism:(Range:2.0-3.0) Prevention of systemic embolism from: -tissue heart valves -acute myocardial infarction -valvular heart disease -atrial fibrillation (Range: 2.0-3.0) Mechanical prosthetic valves: (Range: 2.5-3.5) Barbara Jiménez [facility] POINT OF CARE TEST DOCKED DEVICE UNSOLICITED RESULTS [facility] [address] [place] [address] documented in this encounter Visit Diagnoses Diagnosis Anticoagulation management encounter- Primary Encounter for therapeutic drug monitoring PAF (paroxysmal atrial fibrillation) (HCC) Atrial fibrillation documented in this encounter [...] and were consensually agreed upon. Care Teams Jewelry Engraver Relationship Specialty Start Date End Date Jaime Garcia MD [address] [place] [address] [place] [address] PCP - General Family Medicine 10/15/20 documented as of this encounter"
--- OUTSIDE RECORDS SUMMARY | 2024-05-13 06:02 | External Medical Summary | Summary of Care ---
Author Name Unknown Organization [facility] Address [address] [place] [address] Phone [phone] Care Team Providers Care Sewing Machine Bobbin Winder Name Role Phone Jaime Garcia MD Primary Care Provide r Encounter Details Date Type Department Care Team (Late st Contact Info) Description 04/03/2024 Orders Only Family Medicine [address] [place] [phone] Jaime Garcia MD [address] [place] [address] [place] [address] Allergies Active Allergy Reactions Criticality Noted Date Comments Atorvastatin Muscle pain High 03/30/2019 Ezetimibe Muscle pain High 01/25/2020 documented as of this encounter (statuses as of 04/03/2024) Medications Medication Sig Dispensed Refills Start Date [...] 6 mL 3 06/15/2023 4 Active Pen [place] 32G X 4 MM Use as directed. [...] mouth in the morning. 180 Tablet 1 01/04/2024 Active DULoxetine HCl 20 MG Oral Capsule Delayed Release Particles (Cymbalta) Take 2 Capsules by mouth in the morning. 180 Capsule 1 01/02/2024 Active Nystatin 152757 UNIT/ML Mouth/Throat SuspensionIndicatio ns:Multiple myeloma in relapse ([facility]) Swish and swallow 5 mL [...] as of this encounter (statuses as of 04/03/2024) Active Problems Problem Noted Date Diagnosed Date [...] myeloma without remission 06/14/2014 Overview: Dr Rodriges/ [facility] ADVANCE DIRECTIVE INFORMATION 10/13/2006 Overview: No, Advance Directive brochure offered , patient declined. Degeneration of lumbosacral intervertebral disc 02/19/2005 documented as of this encounter (statuses as of 04/03/2024) Resolved Problems Problem Noted Date Diagnosed Date [...] as of this encounter (statuses as of 04/03/2024) Immunizations Name Administration Dates Next Due COVID-19, [...] Care Team (Late st Contact Info) Description 04/04/2024 6:10 PM EDT Anticoagulation Pharmacy, [address] [place] [address] [place] [address] 04/06/2024 9:30 AM EDT Office Visit Cardiology, [facility] [address] [place] [address] Beth Salter CRNP [address] [place] [phone] 04/16/2024 10:30 AM EDT Scheduled Telephone [facility], [facility] [address] [facility] [place] [address] Yecenia Back, ALEXANDREN [address] [facility] [place] [address] 04/16/2024 2:30 PM EDT Telemedicine Hematology [facility]cology [facility], Tyree [address] [facility] [place] [address] Rosalio Amaral MD [address] [facility] [place] [address] 04/18/2024 10:00 AM EDT [facility], [facility] [address] [place] [address] Sulma Seth, RN [address] [place] [address] 04/19/2024 9:30 AM EDT Office Visit Cardiology [address] [place] [address] Tim Ruiz PAPageC [address] [place] [address] 05/01/2024 2:30 PM EDT [facility] Visit [facility] [place], [facility] [address] [place] [address] Sulma Seth, BOBBY [address] [place] [address] 05/11/2024 11:40 AM EDT Office Visit Sleep Disorders Ctr [facility] [address] [place] [phone] Tona Mondragon DO [address] [place] [address] 05/15/2024 2:00 PM EDT Telemedicine [facility] [address] [place] [address] Thierno Patel PA-C [address] [place] [address] 06/20/2024 3:00 PM EDT Telemedicine [facility] Nikki Chrisney [address] [place] [address] Rosalio Amaral MD [address] [place] [address] 10/30/2024 1:45 PM EST Office Visit Urology, [facility] [address] [facility] [place] [address] Devyn Paniagua MD [address] [facility] [place] [address] 01/01/2025 10:20 AM EDT Office Visit Otolaryngology [facility] [address] [facility] [place] [address] Haley Aguero PA-C 132 [facility] [place] [address] Health Maintenance Due Date Last Done Comments [...] 07/25/2023, 03/12, 01/31/2023, Additional history exists GFR 09/26/2024 04/02/2024, 03/12, 03/22/2024, Additional history exists Diabetic Eye Exam 01/18/2025 01/19/2024, , 07/11/2023, Additional history exists Albumin/Creatinine Ratio 01/26/2025 024, 12/30/2023, 09/08/2023, Additional history exists CKD PHOS USE SMARTSET 53711 03/09/202502/11, 03/08/2024, 03/07/2024, Additional history exists CKD HGB USE SMARTSET 42919 03/26/202504/02, 03/26/2024, 03/19/2024, Additional history exists DTaP,Tdap,and Td [...] this encounter Medical Devices Implanted Type Area Welder Production Line Combination Device Identifier Shelf Expiration Date Model / Serial / Lot Port Power Mri W/8fr Cath - [id number] Implanted:Qty: 1 on 09/26/2020 by Simone Michelle MD at OR [facility] Right: Chest CR BARD : PERIPHERAL VASCULAR 10/12/2021 [id number] / / [id number] Description:right IJ Lens Intraoc 19.0 - [id number] - [id number] Implanted:Qty: 1 on 02/03/2021 by Chris Sexton MD at OR [facility] Right: Eye BAUSCH & LOMB 09/11/2025 [id number] / [id number] / Lens Intraoc 19.0 - [id number] - [id number] Implanted:Qty: 1 on 02/24/2021 by Chris Sexton MD at OR [facility] Left: Eye BAUSCH & LOMB 10/12/2025 [id number] / [id number] / [id number] System Urolift - [id number] Implanted:Qty: 2 on 03/17/2023 by Devyn Paniagua MD at OR [facility] N/A: Urethra [employer] 11/18/2023 [id number] / / [id number] System Urolift - [id number] Implanted:Qty: 3 on 03/17/2023 by Devyn Paniagua MD at OR [facility] N/A: Urethra [employer] 11/03/2023 [id number] / / [id number] documented as of this encounter Procedures Procedure Name Priority Date/Time Associated Diagnosis Comments CHEMISTRY-OUTSIDE Routine 04/02/2024 documented in this encounter Results * (ABNORMAL) CHEMISTRY-OUTSIDE (04/02/2024) Not all results display below - see scan for full detail OUTSIDE LAB (SEE SCANNED REPORT) Comment:SCAN INCLUDES - PT I NR, CBCD, FIBRINOGEN, CMP, C-REACTIVE PROTEIN, FERRITIN CREATININE-OUTSID E LAB 1.28 0.70 - 1.30 MG/DL OUTSIDE LAB (SEE SCANNED REPORT) EGFR-OUTSIDE LAB 67 >=60 ML/MIN OUTSIDE LAB (SEE SCANNED REPORT) POTASSIUM-OUTSIDE LAB 4.4 3.5 - 5.1 MMOL/L OUTSIDE LAB (SEE SCANNED REPORT) GLUCOSE-OUTSIDE LAB 92 70 - 110 MG/DL OUTSIDE LAB (SEE [...] LAB OUTSIDE LAB (SEE SCANNED REPORT) HEMOGLOBIN, [id number] LAB OUTSIDE LAB (SEE SCANNED REPORT) PHOSPHORUS-OUTSID E LAB OUTSIDE LAB (SEE SCANNED REPORT) PTH-OUTSIDE LAB OUTS ALVAREZ LAB (SEE SCANNED REPORT) MICROALBUMIN RATIO-OUTSIDE LAB OUTSIDE LA B (SEE SCANNED REPORT) PROTEIN, UA-OUTSIDE LAB OUTSIDE LAB (SEE SCANNED REPORT) HGB 12.2(A) 13.5 - 18.0 GM/DL OUTSIDE LAB (SEE SCANNED REPORT) 04/02/2024 Jaime Garcia MD LABORATORY OUTSIDE LAB (SEE [...] and were consensually agreed upon. Care Teams Sewing Machine Bobbin Winder Relationship Specialty Start Date End Date Jaime Garcia MD [address] [place] [address] [place] [address] PCP - General Family Medicine 10/15/20 documented as of this encounter
--- OUTSIDE RECORDS SUMMARY | 2024-05-13 06:02 | External Medical Summary | Summary of Care ---
Author Name Unknown Organization [facility] Address [address] [place] [address] Phone [phone] Care Team Providers Care Data Systems Manager Name Role Phone Jaime Garcia MD Primary Care Provide r Reason for Visit * Reason Comments Appointment Encounter Details Date Type Department Care Team (Latest Contact Info) Description 03/28/2024 6:10 PM EDT Anticoagulation Pharmacy, [address] [place] [address] [place] [address] PAF (paroxysmal atrial fibrillation) ([facility])* Allergies Active Allergy Reactions Criticality Noted Date Comments Atorvastatin Muscle pain High 03/30/2019 Ezetimibe Muscle pain High 01/25/2020 documented as of this encounter (statuses as of 03/28/2024) Medications Medication Sig Dispensed Refills Start Date End Date Status CPAP every night at bedtime. Active oxygen IN GAS Use 2 L/min(Oxygen) as directed at bedtime. 1 Each 11/11/2020 Active OneTouch Ultra Blue In Vitro Strip (Glucose Blood)Indications:T ype 2 diabetes mellitus with hemoglobin A1c goal of less than 7.0% ([facility]) Use as directed daily. Test once daily DxE11.9 100 Strip 5 03/02/2021 Active LancetsIndications: Type 2 diabetes mellitus with hemoglobin A1c goal of less than 7.0% ([facility]) Test once daily DxE11.9. 100 Each [...] 6 mL 3 06/15/2023 4 Active Pen [place] 32G X 4 MM Use as directed. [...] of less than 7.0% ([facility]) Take 2 Tablets by mouth in the morning. 180 Tablet 1 01/04/2024 Active DULoxetine HCl 20 MG Oral Capsule Delayed Release Particles (Cymbalta) Take 2 Capsules by mouth in the morning. 180 Capsule 1 01/02/2024 Active Nystatin 008171 UNIT/ML Mouth/Throat SuspensionIndicatio ns:Multiple myeloma in relapse ([facility]) Swish and swallow 5 mL in the morning and 5 mL at noon and 5 mL in the evening and 5 mL before bedtime. 60 mL 1 01/02/2024 Active Magnesium Chloride 64 MG Oral Tablet Delayed Release (Mag64)Indications: Multiple myeloma in relapse ([facility]) Take [...] for breakthrough pain. 30 Tablet 03/21/2024 Active documented as of this encounter (statuses as of 03/28/2024) Active Problems Problem Noted Date Diagnosed Date [...] as of this encounter (statuses as of 03/28/2024) Resolved Problems Problem Noted Date Diagnosed Date [...] as of this encounter (statuses as of 03/28/2024) Immunizations Name Administration Dates Next Due COVID-19, [...] as of this encounter Progress Notes * Pat Arita PHARM Tech - 03/28/2024 8:54 AM EDT Patient Phone Numbers Left message on patients answering machine to schedule [facility] appointment for anticoagulation management. [facility] message sent --no Clinic will follow up again in 1 week(s). [Attempt # N/A] Thank you, Pat Arita Molecular Biology Director [facility] Services ([facility]) [phone] 03/28/2024,8:54 AM documented in this encounter Plan of Treatment Upcoming Encounters Date Type Department Care Team (Late st Contact Info) Description 04/04/2024 6:10 PM EDT Anticoagulation Pharmacy, [address] [place] [address] [phone] [place] [address] [place] [address] 04/06/2024 9:30 AM EDT Office Visit Cardiology, [facility] [address] [place] [address] Beth Salter CRNP [address] [place] [address] [place] [address] 04/16/2024 10:30 AM EDT Scheduled Telephone [facility], [facility] [address] [facility] [place] [address] [address]N [address] [place] [address] 04/16/2024 2:30 PM EDT [facility]med[facility] [address] [facility] [place] [address] Rosalio Amaral MD [address] [facility] [place] [address] 04/18/2024 10:00 AM EDT [facility], [facility] [address] [place] [address] Sulma Seth, BOBBY [address] [place] [address] 04/19/2024 9:30 AM EDT Office Visit Cardiology [address] [place] [address] Tim Ruiz PA-C [address] [place] [address] 05/01/2024 2:30 PM EDT [facility] Visit [facility], [facility] [address] [place] [address] Sulma Seth, BOBBY [address] [place] [address] 05/11/2024 11:40 AM EDT Office Visit Sleep Disorders Ctr [facility] 132 [facility] [place] [phone] Tona Mondragon DO [address] [place] [address] 05/15/2024 2:00 PM EDT Telemedicine [facility] [address] [place] [address] Thierno Patel PA-C [address] [place] [address] 06/20/2024 3:00 PM EDT Telemedicine [facility] Tyree Jordna [address] [place] [address] Rosalio Amaral MD [address] [place] [address] 10/30/2024 1:45 PM EST Office Visit Urology, [facility] 132 [facility] [place] [address] Devyn Paniagua MD [address] [place] [address] 01/01/2025 10:20 AM EDT Office Visit Otolaryngology [facility] [address] [place] [address] Haley Aguero PA-C [address] [place] [address] Health Maintenance Due Date Last Done Comments [...] 03/12, 01/31/2023, Additional history exists GFR 09/26/2024 03/26/2024, 03/12, 03/19/2024, Additional history exists Diabetic Eye Exam 01/18/2025 01/19/2024, , 07/11/2023, Additional history exists Albumin/Creatinine Ratio 01/26/2025 024, 12/30/2023, 09/08/2023, Additional history exists CKD PHOS USE SMARTSET 61146 03/09/202502/11, 03/08/2024, 03/07/2024, Additional history exists CKD HGB USE SMARTSET 13211 03/26/202503/26, 03/19/2024, 02/28/2024, Additional history exists DTaP,Tdap,and Td Vaccines (2 [...] this encounter Medical Devices Implanted Type Area Racquet Maker Device Identifier Shelf Expiration Date Model / Serial / Lot Port Power Mri W/8fr Cath - [id number] Implanted:Qty: 1 on 09/26/2020 by Simone Michelle MD at OR [facility] Right: Chest CR BARD : PERIPHERAL VASCULAR 10/12/2021 [id number] / / [id number] Description:right IJ Lens Intraoc 19.0 - [id number] - [id number] Implanted:Qty: 1 on 02/03/2021 by Chris Sexton MD at OR [facility] Right: Eye BAUSCH & LOMB 09/11/2025 [id number] / [id number] / Lens Intraoc 19.0 - [id number] - [id number] Implanted:Qty: 1 on 02/24/2021 by Chris Sexton MD at OR [facility] Left: Eye BAUSCH & LOMB 10/12/2025 [id number] / [id number] System Urolift - [id number] Implanted:Qty: 2 on 03/17/2023 by Devyn Paniagua MD at OR [facility] N/A: Urethra [employer] 11/18/2023 [id number] / / [id number] System Urolift - [id number] Implanted:Qty: 3 on 03/17/2023 by Devyn Paniagua MD at OR [facility] N/A: Urethra [employer] 11/03/2023 [id number] / / [id number] documented as of this encounter Visit Diagnoses [...] and were consensually agreed upon. Care Teams Data Systems Manager Relationship Specialty Start Date End Date Jaime Garcia MD [address] [place] [address] [place] [phone] PCP - General Family Medicine 10/15/20 documented as of this encounter
--- OUTSIDE RECORDS SUMMARY | 2024-05-13 06:02 | External Medical Summary ---
Author Name Unknown Address Unknown Organization : Laboratory Report Ordering Provider Test Date Status TASNEEM SLAUGHTER 04/05/2024 09:07:53 Final Therapeutic ranges for non-o perative patients:
Prophylaxsis/treatment of DVT: (Range:2.0-3.0)
Treatment of pulmonary embolism:(Range:2.0-3.0)
Prevention of systemic embolism from:
-tissue heart valves
-acute myocardial infarction
-valvular heart disease
-atrial fibrillation
(Range: 2.0-3.0)
Mechanical prosthetic valves: (Range: 2.5-3.5) Observation Date Value Abnormality Reference (Units ) Status INR in Capillary blood by Coagulation assay 04/05/2024 09:07:53 1.1 (INR) Final Performing Location
--- OUTSIDE RECORDS SUMMARY | 2024-05-13 06:02 | External Medical Summary | Summary of Care ---
Author Name Unknown Organization [facility] Address [address] [place] [address] Phone [phone] Care Team Providers Care Technology Infusion Specialist Name Role Phone Jaime Garcia MD Primary Care Provide r Encounter Details Date Type Department Care Team (Late st Contact Info) Description 04/03/2024 Orders Only [facility] [address] [place] [address] Anna Daniel RN Allergies Active Allergy Reactions [...] differently: 150 mcgOral Daily(AM), Reported on 08/20/2023 Repathyue SureClick 140 MG/ML Subcutaneous Solution Auto-injector (evolocumab)Indicat ions:Dyslipidemia, goal LDL below 70 INJECT 140MG (1 INJECTION) UNDER THE SKIN EVERY 14 DAYS. REMOVE FROM REFRIGERATOR 30 MINUTES PRIOR TO INJECTION 6 mL 3 06/15/2023 4 Active Pen Hamilton 32G X 4 MM Use as directed. [...] morning. 180 Capsule 1 01/02/2024 Active Nystatin 245797 UNIT/ML Mouth/Throat SuspensionIndicatio ns:Multiple myeloma in relapse ([facility]) Swish and swallow 5 mL in the morning and 5 mL at noon and 5 mL in the evening and 5 mL before bedtime. 60 mL 1 01/02/2024 Active Magnesium Chloride 64 MG Oral Tablet Delayed Release (Mag64)Indications: Multiple myeloma in relapse ([facility]) Take 1 Tablet by mouth in the [...] Next Due COVID-19, LNP-s, No Preserve , Zaar-sucrose, Ages 12+ (Pfizer) 10/06/2021,06/23/2021 Hepatitis B, 20+ [...] Description 04/04/2024 6:10 PM EDT Anticoagulation Pharmacy, [address] [place] [address] [place] [address] 04/06/2024 9:30 AM EDT Office Visit Cardiology, [facility] 132 [facility] [place] [address] Beth Salter CRNP [address] [facility] [place] [address] 04/16/2024 10:30 AM EDT Scheduled Telephone [facility], [facility] [address] [facility] [place] [address] [address]N [address] [facility] [place] [address] 04/16/2024 2:30 PM EDT Telemedicine H[facility]ology [facility] Tyree Jordan [address] [place] [address] Rosalio Amaral MD [address] [place] [address] 04/18/2024 10:00 AM EDT [facility] Visit [facility] [place], [facility] [address] [place] [address] Sulma Seth, BOBBY [address] [place] [address] 04/19/2024 9:30 AM EDT Office Visit Cardiology [address] [place] [address] Tim Ruiz PAPageC [address] [place] [address] 05/01/2024 2:30 PM EDT [facility], [facility] [address] [place] [address] Sulma Seth, BOBBY [address] [place] [address] 05/11/2024 11:40 AM EDT Office Visit Sleep Disorders Ctr [facility] [address] [place] [phone] Tona Mondragon DO [address] [place] [address] 05/15/2024 2:00 PM EDT Telemedicine [facility]ology [facility] Tyree UGARTE [address] [place] [address] Thierno Patel PA-C [address] [facility] [place] [address] 06/20/2024 3:00 PM EDT Telemedicine [facility] Tyree UGARTE [address] [place] [address] Rosalio Amaral MD [address] [place] [address] 10/30/2024 1:45 PM EST Office Visit Urology, [facility] [address] [place] [address] Devyn Paniagua MD [address] [place] [address] 01/01/2025 10:20 AM EDT Office Visit Otolaryngology [facility] [address] [place] [address] Haley Aguero PA-C 132 [facility] [place] [address] Health Maintenance Due Date Last Done Comments [...] Additional history exists CKD PHOS USE SMARTSET 83173 03/09/202502/11, 03/08/2024, 03/07/2024, Additional history exists CKD HGB USE SMARTSET 15505 04/02/202504/02, 03/26/2024, 03/19/2024, Additional history exists DTaP,Tdap,and [...] this encounter Medical Devices Implanted Type Area Chief Chemist Device Identifier Shelf Expiration Date Model / Serial / Lot Port Power Mri W/8fr Cath - [id number] Implanted:Qty: 1 on 09/26/2020 by Simone Michelle MD at OR [facility] Right: Chest CR BARD : PERIPHERAL VASCULAR 10/12/2021 [id number] / / [id number] Description:right IJ Lens Intraoc 19.0 - [id number] - [id number] Implanted:Qty: 1 on 02/03/2021 by Chris Sexton MD at OR [facility] Right: Eye BAUSCH & LOMB 09/11/2025 [id number] / [id number] / Lens Intraoc 19.0 - [id number] - [id number] Implanted:Qty: 1 on 02/24/2021 by Chris Sexton MD at OR [facility] Left: Eye BAUSCH & LOMB 10/12/2025 [id number] / [id number] / [id number] System Urolift - [id number] Implanted:Qty: 2 on 03/17/2023 by Devyn Paniagua MD at OR [facility] N/A: Urethra [employer] 11/18/2023 [id number] / / [id number] System Urolift - [id number] Implanted:Qty: 3 on 03/17/2023 by Devyn Paniagua MD at OR [facility] N/A: Urethra [employer] 11/03/2023 NV689-2 / / [id number] documented as of this encounter Additional Health [...] and were consensually agreed upon. Care Teams Technology Infusion Specialist Relationship Specialty Start Date End Date Jaime Garcia MD [address] [place] [address] [place] [id number] PCP - General Family Medicine 10/15/20 documented as of this encounter
--- OUTSIDE RECORDS SUMMARY | 2024-05-13 06:02 | External Medical Summary | Summary of Care ---
Author Name Unknown Organization [facility] Address [address] [place] [address] Phone [phone] Care Team Providers Care Videotape Sales Representative Name Role Phone Jaime Garcia MD Primary Care Provide r Reason for Visit * Reason Onset Date Comments Medication Problem 03/26/2024 Encounter Details Date Type Department Care Team (Late st Contact Info) Description 03/26/2024 Telephone Family Medicine [address] [phone] Jaime Garcia MD [address] [place] [address] [place] [address] Medication Problem Allergies Active Allergy Reactions Criticality Noted Date [...] for Pain, Severe. 10 Tablet 3 Active Finasteride 5 MG Oral Tablet (Proscar) TAKE 1 TABLET BY MOUTH IN THE MORNING 90 Tablet 3 3 024 Active Cholecalciferol 50 MCG (2000 UT) Oral [...] PRIOR TO INJECTION 6 mL 3 3 024 Active Pen Oxford 32G X 4 MM Use as directed. Inject Lantus once daily. 50 Each 3 3 Active Icosapent Ethyl 1 GM Oral Capsule (Vascepa)Indicatio ns:Hyperlipidemia with target LDL less than 70 Take 2 Capsules by mouth 2 times a day with morning and evening meals. Swallow capsules whole, do not open or break. 360 Capsule 3 3 Active Pantoprazole Sodium 20 MG Oral Tablet Delayed Release (Protonix)Indicati ons:Gastroesophage al reflux disease without esophagitis TAKE ONE TABLET BY MOUTH EVERY DAY IN THE MORNING 90 Tablet 2 3 024 Active Dexcom G7 SensorIndications: Type 2 [...] for Nausea. 30 Tablet 3 4 Active Ondansetron 4 MG Oral Tablet Disintegrating (Zofran) 3 Active NSS 0.9 % SOLN 100 [...] OR OTHER MEDICATIONS 90 Tablet 3 4 025 Active metFORMIN HCl ER 500 MG Oral Tablet Extended Release 24 Hour (Glucophage XR)Indications:Typ e 2 diabetes mellitus with hemoglobin A1c goal of less than 7.0% ([facility]) Take 2 Tablets by mouth in the morning. 180 Tablet 1 4 Active DULoxetine HCl 20 MG Oral Capsule Delayed Release Particles (Cymbalta) Take 2 Capsules by mouth in the morning. 180 Capsule 1 4 Active Nystatin 701294 UNIT/ML Mouth/Throat SuspensionIndicati ons:Multiple myeloma in relapse ([facility]) Swish and swallow 5 mL in the morning and 5 mL at noon and 5 mL in the evening and 5 mL before bedtime. 60 mL 1 4 Active Magnesium Chloride 64 MG Oral Tablet Delayed Release (Mag64)Indications :Multiple myeloma in relapse ([facility]) Take 1 Tablet by mouth in the morning and 1 Tablet before bedtime. 180 Tablet 3 4 Active Prochlorperazine Maleate 10 MG Oral Tablet (Compazine)Indicat ions:Nausea and vomiting, unspecified vomiting type TAKE ONE TABLET BY MOUTH EVERY SIX HOURS NEEDED FOR NAUSEA 40 Tablet 4 Active Folic Acid 400 MCG Oral TabletIndications: [...] the morning 450 Tablet 1 4 Active Hydrocortisone 5 MG Oral Capsule Sprinkle Take 5 capsules by mouth in the morning. 450 Capsule 4 024 Discontinued documented as of this encounter [...] Telephone Encounter - Jaime Garcia MD - 03/28/2024 1:47 PM EDT signed * Telephone Encounter - Dayan Luis CPhT - 03/26/2024 12:20 PM EDT [facility] pharmacy received a rx for Hydrocortisone 5 MG Oral Capsule Sprinkle but it's unavailable. If agreeable, please send rx for tablet form. Any questions, pharmacy can be reached [phone]. Please advise. Thank you, Loida Luis Organisational Psychologist III [facility] 03/26/2024,12:21 PM documented in this encounter Plan of Treatment Upcoming Encounters Date Type Department Care Team (Latest Contact Info) Description 03/28/2024 6:10 PM EDT Anticoagulation Pharmacy, [address] [place] [address] [place] [address] PAF (paroxysmal atrial fibrillation) (HCC)* 04/04/2024 6:10 PM EDT Anticoagulation Pharmacy, [address] [place] [address] [place] [address] 04/06/2024 9:30 AM EDT Office Visit Cardiology, [facility] 132 [facility] [place] [address] Beth Salter CRNP [address] [place] [address] [place] [address] 04/16/2024 10:30 AM EDT Scheduled Telephone [facility], [facility] [address] [facility] [place] [address] [address]N [address] [facility] [place] [address] 04/16/2024 2:30 PM EDT Telemedicine Hematology [facility] Tyree UGARTE [address] [place] [address] Rosalio Amaral MD [address] [facility] [place] [address] 04/18/2024 10:00 AM EDT [facility], [facility] [address] [place] [address] Sulma Seth, BOBBY [address] [place] [address] 04/19/2024 9:30 AM EDT Office Visit Cardiology [address] [place] [address] Tim Ruiz PA-C [address] [place] [address] 05/01/2024 2:30 PM EDT [facility] Visit [facility], [facility] [address] [place] [address] Sulma Seth RN [address] [place] [address] 05/11/2024 11:40 AM EDT Office Visit [facility] [place] [phone] Tona Mondragon DO [address] [place] [address] 05/15/2024 2:00 PM EDT Telemedicine [facility] Tyree UGARTE [address] [place] [address] Thierno Patel PA-C [address] [place] [address] 06/20/2024 3:00 PM EDT Telemedicine [facility] Tyree UGARTE [address] [place] [address] Rosalio Amaral MD [address] [place] [address] 10/30/2024 1:45 PM EST Office Visit Urology, [facility] [address] [place] [address] Devyn Paniagua MD [address] [place] [address] 01/01/2025 10:20 AM EDT Office Visit Otolaryngology [facility] [address] [place] [address] Haley Aguero PA-C [address] [place] [address] Health Maintenance Due Date Last Done Comments [...] Additional history exists CKD PHOS USE SMARTSET 31827 03/09/202502/11, 03/08/2024, 03/07/2024, Additional history exists CKD HGB USE SMARTSET 57142 03/26/202503/26, 03/19/2024, 02/28/2024, Additional history exists DTaP,Tdap,and [...] this encounter Medical Devices Implanted Type Area Inspector Filters Device Identifier Shelf Expiration Date Model / Serial / Lot Port Power Mri W/8fr Cath - [id number] Implanted:Qty: 1 on 09/26/2020 by Simone Michelle MD at OR [facility] Right: Chest CR BARD : PERIPHERAL VASCULAR 10/12/2021 [id number] / / [id number] Description:right IJ Lens Intraoc 19.0 - [id number] - [id number] Implanted:Qty: 1 on 02/03/2021 by Chris Sexton MD at OR [facility] Right: Eye BAUSCH [employer] LOMB 09/11/2025 [id number] / [id number] / Lens Intraoc 19.0 - [id number] - [id number] Implanted:Qty: 1 on 02/24/2021 by Chris Sexton MD at OR [facility] Left: Eye BAUSCH & LOMB 10/12/2025 [id number] / [id number] / [id number] System Urolift - [id number] Implanted:Qty: 2 on 03/17/2023 by Devyn Paniagua MD at OR [facility] N/A: Urethra [employer] 11/18/2023 HX195-3 / / [id number] System Urolift - [id number] Implanted:Qty: 3 on 03/17/2023 by Devyn Paniagua MD at OR [facility] N/A: Urethra [employer] 11/03/2023 [id number] / / [id number] documented as of this encounter Additional Health [...] and were consensually agreed upon. Care Teams Videotape Sales Representative Relationship Specialty Start Date End Date Jaime Garcia MD [address] [place] [address] [place] [phone] PCP - General Family Medicine 10/15/20 documented as of this encounter
--- OUTSIDE RECORDS SUMMARY | 2024-05-13 06:02 | External Medical Summary | Summary of Care ---
Author Name Unknown Organization [facility] Address [address] [place] [address] Phone [phone] Care Team Providers Care Pastoral Worker Name Role Phone Jaime Garcia MD Primary Care Provide r Reason for Visit * Reason Onset Date Comments Appointment 04/03/2024 Encounter Details Date Type Department Care Team (Late st Contact Info) Description 04/03/2024 Telephone Hematology/Oncology Treatment, [place] [address] [place] [phone] Rosalio Amaral MD [address] [place] [address] Appointment Allergies Active Allergy Reactions Criticality Noted [...] 6 mL 3 06/15/2023 4 Active Pen [place] 32G X 4 MM Use as directed. [...] morning. 180 Capsule 1 01/02/2024 Active Nystatin 552784 UNIT/ML Mouth/Throat SuspensionIndicatio ns:Multiple myeloma in relapse ([facility]) Swish and swallow 5 mL in the morning and 5 mL at noon and 5 mL in the evening and 5 mL before bedtime. 60 mL 1 01/02/2024 Active Magnesium Chloride 64 MG Oral Tablet Delayed Release (Mag64)Indications: Multiple myeloma in relapse ([facility]) Take [...] immunoglobulin quantitative Teach: no Toxicity Check: no" Cando plan in place, routed for signature Cando plan states site of administration is [facility]- changed to [facility]. Once beacon plan is signed and auth is back, patient can be scheduled. documented in this encounter Plan of Treatment Upcoming Encounters Date Type Department Care Team (Late st Contact Info) Description 04/04/2024 6:10 PM EDT Anticoagulation Pharmacy, [address] [place] [address] [place] [address] 04/06/2024 9:30 AM EDT Office Visit Cardiology, [facility] [address] [place] [address] Beth Salter CRNP [address] [place] [address] 04/16/2024 10:30 AM EDT Scheduled Telephone [facility], [facility] [address] [facility] [place] [address] Yecenia Back RDN [address] [facility] [place] [address] 04/16/2024 2:30 PM EDT Telemedicine Hematology [facility]cology [facility] [place] [address] [facility] [place] [address] Rosalio Amaral MD [address] [facility] [place] [address] 04/18/2024 10:00 AM EDT [facility], [facility] [address] [place] [address] Sulma Seth, RN 132 [place] [address] 04/19/2024 9:30 AM EDT Office Visit Cardiology [address] [place] [address] Tim Ruiz PA-C [address] [place] [address] 05/01/2024 2:30 PM EDT [facility] Visit [facility], [facility] 132 [facility] [place] [address] Sulma Seth, BOBBY 132 [facility] [place] [address] 05/11/2024 11:40 AM EDT Office Visit Sleep Disorders Ctr [facility] 132 [facility] [place] [phone] Tona Mondragon DO [address] [place] [address] 05/15/2024 2:00 PM EDT [facility]med[facility] [address] [facility] [place] [address] Thierno Patel PA-C [address] [facility] [place] [address] 06/20/2024 3:00 PM EDT Telemedicine H[facility]ology [facility] Tyree Jordan [address] [facility] [place] [address] Rosalio Amaral MD [address] [facility] [place] [address] 10/30/2024 1:45 PM EST Office Visit Urology, [facility] 132 [facility] [place] [address] Devyn Paniagua MD [address] [place] [address] 01/01/2025 10:20 AM EDT Office Visit Otolaryngology [facility] [address] [place] [address] Haley Aguero PA-C [address] [place] [address] Health Maintenance Due Date Last Done Comments [...] Additional history exists CKD PHOS USE SMARTSET 10451 03/09/202502/11, 03/08/2024, 03/07/2024, Additional history exists CKD HGB USE SMARTSET 20763 04/02/202504/02, 03/26/2024, 03/19/2024, Additional history exists DTaP,Tdap,and [...] this encounter Medical Devices Implanted Type Area Construction Project Manager Device Identifier Shelf Expiration Date Model / Serial / Lot Port Power Mri W/8fr Cath - [id number] Implanted:Qty: 1 on 09/26/2020 by Simone Michelle MD at OR [facility] Right: Chest CR BARD : PERIPHERAL VASCULAR 10/12/2021 [id number] / / [id number] Description:right IJ Lens Intraoc 19.0 - [id number] - [id number] Implanted:Qty: 1 on 02/03/2021 by Chris Sexton MD at OR [facility] Right: Eye BAUSCH & LOMB 09/11/2025 [id number] / [id number] / Lens Intraoc 19.0 - [id number] - [id number] Implanted:Qty: 1 on 02/24/2021 by Chris Sexton MD at OR [facility] Left: Eye BAUSCH & LOMB 10/12/2025 [id number] / [id number] System Urolift - [id number] Implanted:Qty: 2 on 03/17/2023 by Devyn Paniagua MD at OR [facility] N/A: Urethra [employer] 11/18/2023 XG882-9 / / [id number] System Urolift - [id number] Implanted:Qty: 3 on 03/17/2023 by Devyn Paniagua MD at OR [facility] N/A: Urethra [employer] 11/03/2023 [id number] / / [id number] documented as of this encounter Additional Health [...] and were consensually agreed upon. Care Teams Pastoral Worker Relationship Specialty Start Date End Date Jaime Garcia MD [address] [place] [address] [place] [phone] PCP - General Family Medicine 10/15/20 documented as of this encounter
--- OUTSIDE RECORDS SUMMARY | 2024-05-13 06:02 | External Medical Summary | Summary of Care ---
Author Name Unknown Organization [facility] Address [address] [place] [address] Phone [phone] Care Team Providers Care Social Work Assistant Name Role Phone Jaime Garcia MD Primary Care Provide r Reason for Visit * Reason Comments Appointment Encounter Details Date Type Department Care Team (Latest Contact Info) Description 04/04/2024 6:10 PM EDT Anticoagulation Pharmacy, [address] [place] [address] [place] [address] PAF (paroxysmal atrial fibrillation) ([facility])* Allergies Active Allergy Reactions Criticality Noted Date Comments Atorvastatin Muscle pain High 03/30/2019 Ezetimibe Muscle pain High 01/25/2020 documented as of this encounter (statuses as of 04/04/2024) Medications Medication Sig Dispensed Refills Start Date [...] 6 mL 3 06/15/2023 4 Active Pen [place] 32G X 4 MM Use as directed. [...] morning. 180 Capsule 1 01/02/2024 Active Nystatin 002076 UNIT/ML Mouth/Throat SuspensionIndicatio ns:Multiple myeloma in relapse ([facility]) Swish and swallow 5 mL in the morning and 5 mL at noon and 5 mL in the evening and 5 mL before bedtime. 60 mL 1 01/02/2024 Active Magnesium Chloride 64 MG Oral Tablet Delayed Release (Mag64)Indications: Multiple myeloma in relapse ([facility]) Take 1 Tablet by mouth in the [...] as of this encounter (statuses as of 04/04/2024) Active Problems Problem Noted Date Diagnosed Date [...] without remission 06/14/2014 Overview: Dr Rodriges/ [facility] ADVANCE DIRECTIVE INFORMATION 10/13/2006 Overview: No, Advance Directive brochure offered , patient declined. Degeneration of lumbosacral intervertebral disc 02/19/2005 documented as of this encounter (statuses as of 04/04/2024) Resolved Problems Problem Noted Date Diagnosed Date [...] as of this encounter (statuses as of 04/04/2024) Immunizations Name Administration Dates Next Due COVID-19, [...] Notes * Pat Arita PHARM Tech - 04/04/2024 8:56 AM EDT Patient Phone Numbers Spoke with patient to schedule [facility] appointment for anticoagulation management. Appointment scheduled as noted below. 04/05/2024 Thank you, Pat Arita [facility] [phone] 04/04/2024,8:56 AM documented in this encounter Plan of Treatment Upcoming Encounters Date Type Department Care Team (Late st Contact Info) Description 04/05/2024 9:00 AM EDT Anticoagulation Pharmacy, [address] [place] [address] [place] [address] 04/06/2024 9:30 AM EDT Office Visit Cardiology, [facility] [address] [place] [address] Beth Salter CRNP [address] [place] [address] [place] [address] 04/16/2024 10:30 AM EDT Scheduled Telephone [facility], [facility] [address] [facility] [place] [address] Yecenia Back RDN [address] [facility] [place] [address] 04/16/2024 2:30 PM EDT [facility] [address] [place] [address] Rosalio Amaral MD [address] [facility] [place] [address] 04/18/2024 10:00 AM EDT [facility], [facility] [address] [place] [address] Sulma Seth RN 132 [facility] [place] [address] 04/19/2024 9:30 AM EDT Office Visit Cardiology [address] [place] [address] Tim Ruiz PA-C [address] [place] [address] 05/01/2024 2:30 PM EDT [facility] Visit [facility], [facility] [address] [place] [address] Sulma Seth, BOBBY [address] [place] [address] 05/11/2024 11:40 AM EDT Office Visit [facility] Disorders Ctr [facility] 132 [facility] [place] [phone] Tona Mondragon DO [address] [place] [address] 05/15/2024 2:00 PM EDT [facility]medicine [facility] [address] [place] [address] Thierno Patel PA-C [address] [place] [address] 06/20/2024 3:00 PM EDT [facility]medicine [facility] [address] [place] [address] Rosalio Amaral MD [address] [facility] [place] [address] 10/30/2024 1:45 PM EST Office Visit Urology, [facility] 132 [facility] [place] [address] Devyn Paniagua MD [address] [place] [address] 01/01/2025 10:20 AM EDT Office Visit Otolaryngology [facility] [address] [place] [address] Haley Aguero PA-C 132 [facility] [place] [address] Health Maintenance Due Date Last Done Comments [...] Additional history exists CKD PHOS USE SMARTSET 28507 03/09/202502/11, 03/08/2024, 03/07/2024, Additional history exists CKD HGB USE SMARTSET 84587 04/02/202504/02, 03/26/2024, 03/19/2024, Additional history exists DTaP,Tdap,and [...] this encounter Medical Devices Implanted Type Area Explosives Truck Driver Device Identifier Shelf Expiration Date Model / Serial / Lot Port Power Mri W/8fr Cath - [id number] Implanted:Qty: 1 on 09/26/2020 by Simone Michelle MD at OR [facility] Right: Chest CR BARD : PERIPHERAL VASCULAR 10/12/2021 [id number] / / [id number] Description:right IJ Lens Intraoc 19.0 - [id number] - [id number] Implanted:Qty: 1 on 02/03/2021 by Chris Sexton MD at OR [facility] Right: Eye [employer] 09/11/2025 [id number] / [id number] / Lens Intraoc 19.0 - [id number] - [id number] Implanted:Qty: 1 on 02/24/2021 by Chris Sexton MD at OR [facility] Left: Eye BAUSCH [employer] LOMB 10/12/2025 [id number] / [id number] / [id number] System Urolift - [id number] Implanted:Qty: 2 on 03/17/2023 by Devyn Paniagua MD at OR [facility] N/A: Urethra [employer] 11/18/2023 [id number] / / [id number] System Urolift - [id number] Implanted:Qty: 3 on 03/17/2023 by Devyn Paniagua MD at OR [facility] N/A: Urethra [employer] 11/03/2023 JT375-5 / / [id number] documented as of this encounter Visit Diagnoses [...] and were consensually agreed upon. Care Teams Social Work Assistant Relationship Specialty Start Date End Date Jaime Garcia MD [address] [place] [address] [place] [address] PCP - General Family Medicine 10/15/20 documented as of this encounter
--- OUTSIDE RECORDS SUMMARY | 2024-05-13 06:02 | External Medical Summary | Summary of Care ---
Author Name Unknown Organization [facility] Address [address] [place] [address] Phone [phone] Care Team Providers Care Tumbler Operator Name Role Phone Jaime Garcia MD Primary Care Provide r Reason for Visit * Reason Onset Date Comments Appointment 04/03/2024 Encounter Details Date Type Department Care Team (Late st Contact Info) Description 04/03/2024 Telephone Hematology/Oncology Treatment, [facility] [address] [place] [address] Rosalio Amaral MD [address] [place] [address] Appointment Allergies Active Allergy Reactions Criticality Noted [...] mL 3 06/15/2023 4 Active Pen [place] 32G X 4 MM Use as directed. [...] less than 7.0% ([facility]) take two tablets by mouth in the morning 180 Tablet 1 01/04/2024 Active DULoxetine HCl 20 MG Oral Capsule Delayed Release Particles (Cymbalta) Take 2 Capsules by mouth in the morning. 180 Capsule 1 01/02/2024 Active Nystatin 156966 UNIT/ML Mouth/Throat SuspensionIndicatio ns:Multiple myeloma in relapse ([facility]) Swish and swallow 5 mL in the morning and 5 mL at noon and 5 mL in the evening and 5 mL before bedtime. 60 mL 1 01/02/2024 Active Magnesium Chloride 64 MG Oral Tablet Delayed Release (Mag64)Indications: Multiple myeloma in relapse ([facility]) Take 1 Tablet by [...] patient needs to receive infusions by 04/15/24. [place] plan is still not signed. Will need [...] immunoglobulin quantitative Teach: no Toxicity Check: no" [place] plan in place, routed for signature [place] plan states site of administration is [facility]- changed to . Once [place] plan is signed and auth is back, patient can be scheduled. documented in this encounter Plan of Treatment Upcoming Encounters Date Type Department Care Team (Late st Contact Info) Description 04/05/2024 9:00 AM EDT Anticoagulation Pharmacy, [address] [place] [address] [place] [address] 04/06/2024 9:30 AM EDT Office Visit Cardiology, [facility] 132 [facility] [place] [address] Beth Salter CRNP [address] [place] [address] [place] [address] 04/16/2024 10:30 AM EDT Scheduled Telephone [facility], [facility] [address] [facility] [place] [address] Yecenia Back RDN [address] [facility] [place] [address] 04/16/2024 2:30 PM EDT Telemedicine Hematology [facility] [place] [address] [place] [address] Rosalio Amaral MD [address] [facility] [place] [address] 04/18/2024 10:00 AM EDT Home Visit [facility], [facility] [address] [place] [address] Sulma Seth, BOBBY [address] [place] [address] 04/19/2024 9:30 AM EDT Office Visit Cardiology [address] [place] [address] Tim Ruiz PA-C [address] [place] [address] 05/01/2024 2:30 PM EDT Home Visit [facility], [facility] [address] [place] [address] Sulma Seth RN [address] [place] [address] 05/11/2024 11:40 AM EDT Office Visit [facility] [place] [phone] Tona Mondragon DO [address] [place] [address] 05/15/2024 2:00 PM EDT Telemedicine [facility]ology [facility] [place] [facility] [address] [place] [address] Thierno Patel PA-C [address] [place] [address] 06/20/2024 3:00 PM EDT Telemedicine H[facility]ology [facility] [place] [address] [place] [address] Rosalio Amaral MD [address] [place] [address] 10/30/2024 1:45 PM EST Office Visit Urology, [facility] [address] [place] [address] Devyn Paniagua MD [address] [place] [address] 01/01/2025 10:20 AM EDT Office Visit Otolaryngology [facility] [address] [place] [address] Haley Aguero PA-C [address] [place] [address] Health Maintenance Due Date Last Done Comments [...] Additional history exists CKD PHOS USE SMARTSET 10794 03/09/202502/11, 03/08/2024, 03/07/2024, Additional history exists CKD HGB USE SMARTSET 37530 04/02/202504/02, 03/26/2024, 03/19/2024, Additional history exists DTaP,Tdap,and [...] this encounter Medical Devices Implanted Type Area Hvac/R Service Technician Device Identifier Shelf Expiration Date Model / Serial / Lot Port Power Mri W/8fr Cath - [id number] Implanted:Qty: 1 on 09/26/2020 by Simone Michelle MD at OR [facility] Right: Chest CR BARD : PERIPHERAL VASCULAR 10/12/2021 [id number] / / [id number] Description:right IJ Lens Intraoc 19.0 - [id number] - [id number] Implanted:Qty: 1 on 02/03/2021 by Chris Sexton MD at OR [facility] Right: Eye BAUSCH [employer] LOMB 09/11/2025 [id number] / [id number] / Lens Intraoc 19.0 - [id number] - [id number] Implanted:Qty: 1 on 02/24/2021 by Chris Sexton MD at OR [facility] Left: Eye BAUSCH [employer] LOMB 10/12/2025 [id number] / [id number] / [id number] System Urolift - [id number] Implanted:Qty: 2 on 03/17/2023 by Devyn Paniagua MD at OR [facility] N/A: Urethra [employer] 11/18/2023 QM207-5 / / [id number] System Urolift - [id number] Implanted:Qty: 3 on 03/17/2023 by Devyn Paniagua MD at OR [facility] N/A: Urethra [employer] 11/03/2023 AD761-6 / / [id number] documented as of this encounter Additional Health [...] and were consensually agreed upon. Care Teams Tumbler Operator Relationship Specialty Start Date End Date Jaime Garcia MD [address] [place] [address] [place] [phone] PCP - General Family Medicine 10/15/20 documented as of this encounter
--- OUTSIDE RECORDS SUMMARY | 2024-05-13 06:03 | External Medical Summary | Summary of Care ---
Author Name Unknown Organization [facility] Address [address] [place] [address] Phone [phone] Care Team Providers Care Facilities Supervisor Name Role Phone Jaime Garcia MD Primary Care Provide r Reason for Visit * Reason Comments Medication Refill Encounter Details Date Type Department Care Team (Late st Contact Info) Description 03/21/2024 Refill Hematology [facility] [place] [facility] [address] [facility] [place] [address] Ana Amaya MD [address] [facility] [place] [address] Multiple myeloma in relapse (HCC) Allergies Active Allergy Reactions Criticality Noted Date Comments Atorvastatin Muscle pain High 03/30/2019 Ezetimibe Muscle pain High 01/25/2020 documented as of this encounter (statuses as of 03/21/2024) Medications Medication Sig Dispensed Refills Start Date [...] mL 3 3 06/14/20 24 Active Pen [place] 32G X 4 [...] morning. 180 Capsule 1 4 Active Nystatin 960971 UNIT/ML Mouth/Throat SuspensionIndicatio ns:Multiple myeloma in relapse ([facility]) Swish and swallow 5 mL in the morning and 5 mL at noon and 5 mL in the evening and 5 mL before bedtime. 60 mL 1 4 Active Magnesium Chloride 64 MG Oral Tablet Delayed Release (Mag64)Indications: Multiple myeloma in relapse ([facility]) Take 1 Tablet by mouth in the [...] the morning. 90 Tablet 1 4 Active oxyCODONE HCl 5 MG Oral Tablet (Oxy IR)Indications:Mult iple myeloma in relapse (HCC) Take 1 Tablet by mouth every 4 hours as needed for breakthrough pain. 30 Tablet 4 Active oxyCODONE HCl 5 MG Oral Tablet (Oxy IR)Indications:Mult iple myeloma in relapse (HCC) Take 1 Tablet by mouth every 4 hours as needed for breakthrough pain. 30 Tablet 4 03/21/20 24 Discontinu ed(Refill) documented as of this encounter (statuses as of 03/21/2024) Active Problems Problem Noted Date Diagnosed Date [...] as of this encounter (statuses as of 03/21/2024) Resolved Problems Problem Noted Date Diagnosed Date [...] as of this encounter (statuses as of 03/21/2024) Immunizations Name Administration Dates Next Due COVID-19, [...] Telephone Encounter - Ana Amaya MD - 03/21/2024 5:46 PM EDTSigned Prescriptions: Disp Refills oxyCODONE HCl 5 MG Oral Tablet (Oxy IR) 30 Tab*0 Sig: Take 1 Tablet by mouth every 4 hours as needed for breakthrough pain.Authorizing Provider: ANA AMAYA------ documented in this encounter Plan of Treatment Upcoming Encounters Date Type Department Care Team (Late st Contact Info) Description 03/22/2024 2:00 PM EDT Home Visit hali at [facility] [address] [place] [address] Sulma Seth RN [address] [place] [address] 03/28/2024 6:10 PM EDT Anticoagulation Pharmacy, [address] [place] [address] [place] [address] 04/06/2024 9:30 AM EDT Office Visit Cardiology, [facility] [address] [place] [address] Beth Salter CRNP [address] [place] [address] 04/16/2024 2:30 PM EDT Telemedicine H[facility]ology [facility] [place] [facility] [address] [facility] [place] [address] Ana Amaya MD [address] [place] [address] 04/18/2024 10:00 AM EDT [facility] [place], [facility] [address] [place] [address] Sulma Seth, RN [address] [place] [address] 04/19/2024 9:30 AM EDT Office Visit Cardiology [address] [place] [address] Tim Ruiz PA-C [address] [place] [address] 05/11/2024 11:40 AM EDT Office Visit Sleep Disorders [facility] [address] [place] [phone] Tona Mondragon DO [address] [place] [address] 05/15/2024 2:00 PM EDT Telemedicine H[facility]ology [facility] [place] [address] [place] [address] Thierno Patel PA-C [address] [place] [address] 06/20/2024 3:00 PM EDT Telemedicine H[facility]ology [facility] [place] [facility] [address] [place] [address] Ana Amaya MD [address] [place] [address] 10/30/2024 1:45 PM EST Office Visit Urology, [facility] 132 [facility] [place] [address] Devyn Paniagua MD [address] [place] [address] 01/01/2025 10:20 AM EDT Office Visit Otolaryngology [facility] [address] [place] [address] Haley Aguero PA-C 132 [facility] [place] [address] Health Maintenance Due Date Last Done Comments [...] 07/25/2023, 03/12, 01/31/2023, Additional history exists GFR 09/19/2024 03/19/2024, 07/0 11/2023, 03/14/2024, Additional history exists Diabetic Eye Exam 01/18/2025 01/19/2024, , 07/11/2023, Additional history exists Albumin/Creatinine Ratio 01/26/2025 024, 12/30/2023, 09/08/2023, Additional history exists CKD PHOS USE SMARTSET 94787 03/09/202502/11, 03/08/2024, 03/07/2024, Additional history exists CKD HGB USE SMARTSET 52959 03/19/202503/19, 02/28/2024, 02/20/2024, Additional history exists DTaP,Tdap,and Td Vaccines (2 [...] this encounter Medical Devices Implanted Type Area Emotionally Impaired Teacher Device Identifier Shelf Expiration Date Model / Serial / Lot Port Power Mri W/8fr Cath - [id number] Implanted:Qty: 1 on 09/26/2020 by Simone Michelle MD at OR [facility] Right: Chest CR BARD : PERIPHERAL VASCULAR 10/12/2021 [id number] / / [id number] Description:right IJ Lens Intraoc 19.0 - [id number] - [id number] Implanted:Qty: 1 on 02/03/2021 by Chris Sexton MD at OR [facility] Right: Eye BAUSCH & LOMB 09/11/2025 [id number] / [id number] / Lens Intraoc 19.0 - [id number] - [id number] Implanted:Qty: 1 on 02/24/2021 by Chris Sexton MD at OR [facility] Left: Eye BAUSCH & LOMB 10/12/2025 [id number] / [id number] System Urolift - [id number] Implanted:Qty: 2 on 03/17/2023 by Devyn Paniagua MD at OR [facility] N/A: Urethra [employer] 11/18/2023 PR671-6 / / [id number] System Urolift - [id number] Implanted:Qty: 3 on 03/17/2023 by Devyn Paniagua MD at OR [facility] N/A: Urethra [employer] 11/03/2023 [id number] / / [id number] documented as of this encounter Visit Diagnoses [...] and were consensually agreed upon. Care Teams Facilities Supervisor Relationship Specialty Start Date End Date Jaime Garcia MD [address] [place] [address] [place] [address] PCP - General Family Medicine 10/15/20 documented as of this encounter
--- OUTSIDE RECORDS SUMMARY | 2024-05-13 06:03 | External Medical Summary | Summary of Care ---
Author Name Unknown Organization [facility] Address [address] [place] [address] Phone [phone] Care Team Providers Care Machine Tracer Name Role Phone Jaime Garcia MD Primary Care Provide r Encounter Details Date Type Department Care Team (Late st Contact Info) Description 03/26/2024 Result Scan Unspecified Department Jaime Gracia MD [address] [place] [address] [place] [id number] <No scans attached> Allergies Active Allergy Reactions Criticality Noted Date Comments Atorvastatin Muscle pain High 03/30/2019 Ezetimibe Muscle pain High 01/25/2020 documented as of this encounter (statuses as of 03/27/2024) Medications Medication Sig Dispensed Refills Start Date [...] 6 mL 3 06/15/2023 4 Active Pen [place] 32G X 4 MM Use as directed. [...] morning. 180 Capsule 1 01/02/2024 Active Nystatin 034138 UNIT/ML Mouth/Throat SuspensionIndicatio ns:Multiple myeloma in relapse ([facility]) Swish and swallow 5 mL in the morning and 5 mL at noon and 5 mL in the evening and 5 mL before bedtime. 60 mL 1 01/02/2024 Active Magnesium Chloride 64 MG Oral Tablet Delayed Release (Mag64)Indications: Multiple myeloma in relapse ([facility]) Take 1 Tablet by mouth in [...] as of this encounter (statuses as of 03/27/2024) Active Problems Problem Noted Date Diagnosed Date [...] as of this encounter (statuses as of 03/27/2024) Resolved Problems Problem Noted Date Diagnosed Date [...] as of this encounter (statuses as of 03/27/2024) Immunizations Name Administration Dates Next Due COVID-19, [...] Care Team (Late st Contact Info) Description 03/28/2024 6:10 PM EDT Anticoagulation Pharmacy, [address] [place] [address] [place] [address] 04/06/2024 9:30 AM EDT Office Visit Cardiology, [facility] [address] [facility] [place] [address] Beth Salter CRNP [address] [place] [address] 04/16/2024 10:30 AM EDT Scheduled Telephone [facility], [facility] [address] [facility] [place] [address] Yecenia Back RDN [address] [facility] [place] [address] 04/16/2024 2:30 PM EDT Telemedicine H[facility] Tyree Jordan [address] [place] [address] Roslaio Amaral MD [address] [place] [address] 04/18/2024 10:00 AM EDT [facility] [address] [place] [address] Sulma Seth, RN [address] [place] [address] 04/19/2024 9:30 AM EDT Office Visit Cardiology [address] [place] [address] Tim Ruiz PA-C [address] [place] [address] 05/01/2024 2:30 PM EDT Home Visit [facility] [address] [place] [address] Sulma Seth, RN [address] [place] [address] 05/11/2024 11:40 AM EDT Office Visit Sleep Disorders Ctr [facility] [address] [place] [phone] Tona Mondragon DO [address] [place] [address] 05/15/2024 2:00 PM EDT Telemedicine H[facility]ology [facility] Tyree Jordan [address] [place] [address] Thierno Patel, PA-C [address] [place] [address] 06/20/2024 3:00 PM EDT Telemedicine H[facility]ology [facility] Tyree UGARTE [address] [place] [address] Rosalio Amaral MD [address] [facility] [address] 10/30/2024 1:45 PM EST Office Visit Urology, [facility] [place] [address] Devyn Paniagua MD [address] [place] [address] 01/01/2025 10:20 AM EDT Office Visit Otol[facility]ology [facility] 132 [facility] [place] [address] Haley Aguero PA-C 132 [facility] [place] [address] Health Maintenance Due Date Last Done Comments [...] 07/25/2023, 03/12, 01/31/2023, Additional history exists GFR 09/22/2024 03/22/2024, 07/0 04/2024, 03/14/2024, Additional history exists Diabetic Eye Exam 01/18/2025 01/19/2024, , 07/11/2023, Additional history exists Albumin/Creatinine Ratio 01/26/2025 024, 12/30/2023, 09/08/2023, Additional history exists CKD PHOS USE SMARTSET 78432 03/09/202502/11, 03/08/2024, 03/07/2024, Additional history exists CKD HGB USE SMARTSET 26331 03/19/202503/19, 02/28/2024, 02/20/2024, Additional history exists DTaP,Tdap,and [...] this encounter Medical Devices Implanted Type Area Supply Chain Generalist Device Identifier Shelf Expiration Date Model / Serial / Lot Port Power Mri W/8fr Cath - [id number] Implanted:Qty: 1 on 09/26/2020 by Simone Michelle MD at OR [facility] Right: Chest CR BARD : PERIPHERAL VASCULAR 10/12/2021 [id number] / / [id number] Description:right IJ Lens Intraoc 19.0 - [id number] - [id number] Implanted:Qty: 1 on 02/03/2021 by Chris Sexton MD at OR [facility] Right: Eye [employer]USCH [employer] LOMB 09/11/2025 [id number] / [id number] / Lens Intraoc 19.0 - [id number] - [id number] Implanted:Qty: 1 on 02/24/2021 by Chris Sexton MD at OR [facility] Left: Eye BAUSCH & LOMB 10/12/2025 [id number] / [id number] / [id number] System Urolift - [id number] Implanted:Qty: 2 on 03/17/2023 by Devyn Paniagua MD at OR [facility] N/A: Urethra [employer] 11/18/2023 [id number] / / [id number] System Urolift - [id number] Implanted:Qty: 3 on 03/17/2023 by Devyn Paniagua MD at OR [facility] N/A: Urethra [employer] 11/03/2023 [id number] / / [id number] documented as of this encounter Procedures Procedure Name Priority Date/Time Associated Diagnosis Comments OUTSIDE LAB RESULTS 03/26/2024 documented in this encounter Results * OUTSIDE LAB RESULTS (03/26/2024) 03/26/2024 Jaime Garcia MD LABORATORY documented in this [...] and were consensually agreed upon. Care Teams Machine Tracer Relationship Specialty Start Date End Date Jaime Garcia MD [address] [place] [address] [place] [address] PCP - General Family Medicine 10/15/20 documented as of this encounter
--- OUTSIDE RECORDS SUMMARY | 2024-05-13 06:03 | External Medical Summary ---
Author Name Unknown Address Unknown Organization : Laboratory Report Ordering Provider Test Date Status RAMSES GUERRIER 03/22/2024 11:26:42 Final Observation Date Value Abnormality Reference (Units ) Status Renin Activity 03/22/2024 11:26:42 0.29 0.25- 5.82 (ng/mL/h) Final This test was developed and its analytical performance
characteristics have been determined by [employer] [place], [place]. It has
not been cleared or approved by the U.S. Food and Drug
Administration. This assay has been validated pursuant
to the CLIA regulations and is used for clinical
purposes.

Test Performed at:
[facility]
[address] [facility]
[place] [address]
Aron Lopez M.D., Ph.D.,Director of Laboratories Performing Location
--- OUTSIDE RECORDS SUMMARY | 2024-05-13 06:03 | External Medical Summary | Summary of Care ---
Author Name Unknown Organization [facility] Address [address] [place] [address] Phone [phone] Care Team Providers Care Automotive Parts Counterperson Name Role Phone Jaime Garcia MD Primary Care Provide r Encounter Details Date Type Department Care Team (Late st Contact Info) Description 03/27/2024 Orders Only Family Medicine [address] [place] [phone] Jaime Garcia MD [address] [place] [address] [place] [address] Allergies Active Allergy Reactions Criticality Noted Date [...] 6 mL 3 06/15/2023 4 Active Pen [place] 32G X 4 MM Use as directed. [...] morning. 180 Capsule 1 01/02/2024 Active Nystatin 636469 UNIT/ML Mouth/Throat SuspensionIndicatio ns:Multiple myeloma in relapse ([facility]) Swish and swallow 5 mL [...] myeloma without remission 06/14/2014 Overview: Dr Rodriges/ [facility] [place] [facility] DIRECTIVE INFORMATION 10/13/2006 Overview: No, Advance [...] Description 03/28/2024 6:10 PM EDT Anticoagulation Pharmacy, [address] [place] [address] [place] [address] 04/06/2024 9:30 AM EDT Office Visit Cardiology, [facility] 132 [facility] [place] [address] Beth Salter CRNP [address] [place] [address] [place] [address] 04/16/2024 10:30 AM EDT Scheduled Telephone [facility], [facility] [address] [facility] [place] [address] Yecenia Back RDN [address] [place] [address] 04/16/2024 2:30 PM EDT Telemedicine Hematology [facility] Tyree Jordan [address] [place] [address] Rosalio Amaral MD [address] [place] [address] 04/18/2024 10:00 AM EDT Home Visit [facility], [facility] [address] [place] [address] Sulma Seth, BOBBY [address] [place] [address] 04/19/2024 9:30 AM EDT Office Visit Cardiology [address] [place] [address] Tim Ruiz PAPgaeC [address] [place] [address] 05/01/2024 2:30 PM EDT Home Visit [facility], [facility] [address] [place] [address] Sulma Seth, BOBBY [address] [place] [address] 05/11/2024 11:40 AM EDT Office Visit Sleep Disorders Ctr [facility] [address] [place] [phone] Tona Mondragon DO [address] [place] [address] 05/15/2024 2:00 PM EDT Telemedicine Hematology [facility] Tyree UGARTE [address] [place] [address] Thierno Patel PA-C [address] [facility] [place] [address] 06/20/2024 3:00 PM EDT Telemedicine [facility] [place] [address] [place] [address] Rosalio Amaral MD [address] [facility] [place] [address] 10/30/2024 1:45 PM EST Office Visit Urology, [facility] [place] [address] Devyn Paniagua MD [address] [place] [address] 01/01/2025 10:20 AM EDT Office Visit Otolaryngology [facility] 132 [facility] [place] [address] Haley Aguero PA-C 132 [facility] [place] [address] Health Maintenance Due Date Last Done Comments [...] 03/12, 01/31/2023, Additional history exists GFR 09/22/2024 03/26/2024, 03/12, 03/19/2024, Additional history exists Diabetic Eye Exam 01/18/2025 01/19/2024, , 07/11/2023, Additional history exists Albumin/Creatinine Ratio 01/26/2025 024, 12/30/2023, 09/08/2023, Additional history exists CKD PHOS USE SMARTSET 10401 03/09/202502/11, 03/08/2024, 03/07/2024, Additional history exists CKD HGB USE SMARTSET 80218 03/19/202503/26, 03/19/2024, 02/28/2024, Additional history exists DTaP,Tdap,and Td [...] this encounter Medical Devices Implanted Type Area Strapper Operator Device Identifier Shelf Expiration Date Model / Serial / Lot Port Power Mri W/8fr Cath - [id number] Implanted:Qty: 1 on 09/26/2020 by Simone Michelle MD at OR [facility] Right: Chest CR BARD : PERIPHERAL VASCULAR 10/12/2021 [id number] / / [id number] Description:right IJ Lens Intraoc 19.0 - [id number] - [id number] Implanted:Qty: 1 on 02/03/2021 by Chris Sexton MD at OR [facility] Right: Eye BAUSCH & LOMB 09/11/2025 [id number] / [id number] / Lens Intraoc 19.0 - [id number] - [id number] Implanted:Qty: 1 on 02/24/2021 by Chris Sexton MD at OR [facility] Left: Eye BAUSCH & LOMB 10/12/2025 [id number] / [id number] / [id number] System Urolift - [id number] Implanted:Qty: 2 on 03/17/2023 by Devyn Paniagua MD at OR [facility] N/A: Urethra [employer] 11/18/2023 [id number] / / [id number] System Urolift - [id number] Implanted:Qty: 3 on 03/17/2023 by Devyn Paniagua MD at OR [facility] N/A: Urethra [employer] 11/03/2023 EL006-8 / / [id number] documented as of this encounter Procedures Procedure Name Priority Date/Time Associated Diagnosis Comments CHEMISTRY-OUTSIDE Routine 03/26/2024 documented in this encounter Results * (ABNORMAL) CHEMISTRY-OUTSIDE (03/26/2024) Not all results display below - see scan for full detail OUTSIDE LAB (SEE SCANNED REPORT) Comment:SEE SCAN- CBCD CREATININE-OUTSID E LAB OUTSIDE LAB (SEE [...] LAB OUTSIDE LAB (SEE SCANNED REPORT) HEMOGLOBIN, [id number] LAB OUTSIDE LAB (SEE SCANNED REPORT) PHOSPHORUS-OUTSID E LAB OUTSIDE LAB (SEE SCANNED REPORT) PTH-OUTSIDE LAB OUTS ALVAREZ LAB (SEE SCANNED REPORT) MICROALBUMIN RATIO-OUTSIDE LAB OUTSIDE LA B (SEE SCANNED REPORT) PROTEIN, UA-OUTSIDE LAB OUTSIDE LAB (SEE SCANNED REPORT) HGB 11.1(A) 13.5 - 18.0 GM/DL OUTSIDE LAB (SEE SCANNED REPORT) 03/26/2024 Jaime Garcia MD LABORATORY OUTSIDE LAB (SEE [...] and were consensually agreed upon. Care Teams Automotive Parts Counterperson Relationship Specialty Start Date End Date Jaime Garcia MD [address] [place] [address] [place] [address] PCP - General Family Medicine 10/15/20 documented as of this encounter
--- OUTSIDE RECORDS SUMMARY | 2024-05-13 06:03 | External Medical Summary ---
Author Name Unknown Address Unknown Organization : Laboratory Report Ordering Provider Test Date Status RAMSES GUERRIER 03/22/2024 11:26:42 Final Observation Date Value Abnormality Reference (Units ) Status 21 HYDROXYLASE ANTIBODY 03/22/2024 11:26:42 NEGATIVE NEGATIVE Final Test performed by [facility]
[id number] [place]
[place] [address]

Industrial Registered Nurse: Gracie Allan MD,PHD,BUNNY
Test Reported by [facility],
[facility],
[address] [place], [place]
Aron Lopez M.D., Ph.D., Director of Laboratories
, [facility] [id number] Performing Location
--- OUTSIDE RECORDS SUMMARY | 2024-05-13 06:03 | External Medical Summary ---
Author Name Unknown Address Unknown Organization K01:[facility] [place] [address] [place] [address] Laboratory Report Ordering Provider Test Date Status RAMSES GUERRIER 03/22/2024 11:26:42 Final Observation Date Value Abnormality Reference (Units ) Status ACTH 03/22/2024 11:26:42 35.8 7.2-63.3 ( pg/mL) Final Performing Location [facility] [place] [place] [address] [place] [address]
--- OUTSIDE RECORDS SUMMARY | 2024-05-13 06:03 | External Medical Summary | Summary of Care ---
Author Name Unknown Organization [facility] Address [address] [place] [address] Phone [phone] Care Team Providers Care Bobbin Sorter Name Role Phone Jaime Garcia MD Primary Care Provide r Reason for Visit * Reason Comments [facility]: Maintenance Encounter Details Date Type Department Care Team (Late st Contact Info) Description 03/22/2024 2:00 PM EDT [facility], [facility] [place] [address] Sulma Seth, RN [address] [place] [address] Multiple myeloma without remission (HCC)* Allergies Active Allergy Reactions Criticality Noted Date Comments Atorvastatin Muscle pain High 03/30/2019 Ezetimibe Muscle pain High 01/25/2020 documented as of this encounter (statuses as of 03/23/2024) Medications Medication Sig Dispensed Refills Start Date [...] of less than 7.0% ([facility]) Test once daily DxE11.9. 100 [...] 6 mL 3 06/15/2023 4 Active Pen [place] 32G X 4 MM Use as directed. [...] morning. 180 Capsule 1 01/02/2024 Active Nystatin 692036 UNIT/ML Mouth/Throat SuspensionIndicatio ns:Multiple myeloma in relapse ([facility]) Swish and swallow 5 mL in the morning and 5 mL at noon and 5 mL in the evening and 5 mL before bedtime. 60 mL 1 01/02/2024 Active Magnesium Chloride 64 MG Oral Tablet Delayed Release (Mag64)Indications: Multiple myeloma in relapse ([facility]) Take [...] the morning. 90 Tablet 1 03/12/2024 Active oxyCODONE HCl 5 MG Oral Tablet (Oxy IR)Indications:Mult iple myeloma in relapse (HCC) Take 1 Tablet by mouth every 4 hours as needed for breakthrough pain. 30 Tablet 03/21/2024 Active documented as of this encounter (statuses as of 03/23/2024) Active Problems Problem Noted Date Diagnosed Date [...] as of this encounter (statuses as of 03/23/2024) Resolved Problems Problem Noted Date Diagnosed Date [...] as of this encounter (statuses as of 03/23/2024) Immunizations Name Administration Dates Next Due COVID-19, [...] Reading Time Taken Comments Blood Pressure 120/82 03/22/2024 2:44 PM EDT Pulse 88 03/22/2024 2:44 PM EDT Temperature 35.6 C (96 F) 03/22/2024 2:44 PM EDT Respiratory Rate 18 03/22/2024 2:44 PM EDT Oxygen Saturation 97% 03/22/2024 2:44 PM EDT Inhaled Oxygen Concentration - - Weight - - Height - - Body Mass Index - - documented in this encounter Progress Notes * Sulma Seth RN - 03/22/2024 2:43 PM EDT [facility] Nurse Visit Date: 03/22/2024 Time: 2:00 PM Name: Jerardo Garciaherberth Haq : 1970 Current Concerns: Patient seen for JERALD#1- recent Car-T cell transplant at [facility]. Was to be discharged from [facility] 02/22 but became dizzy and fell. Discharged 03/09 but had to stay in area to be monitored. Home 03/14/24. Reports feeling tired- appetite poor- states he can't taste anything which hinders him from eating.Referral to livestock trader. Patient is drinking protein drink but is unable to get high calorie drink that he was given while inpatient. Unable to medication review d/t not having service in home- will need additional visit as list thatwas written by this nurse does not match current list in [facility] once in service. Will reach out to patient. VS wnl Lungs clear slightly diminished Sob with moderated exertion No LE edema noted Voiding without difficulty Bowels wnl- per report Taking fluids. Denies pain. Resolving ecchymosis in face/arms from fall Problems/Symptoms: Review of Systems Constitutional: Positive for fatigue. HENT: Negative. Cardiovascular: Negative. Gastrointestinal: Negative. Genitourinary: Negative. Musculoskeletal: Negative. Skin: Negative. Neurological: Negative. Hematological: Negative. Psychiatric/Behavioral: Negative. Physical Exam: BP 120/82 (BP Site: Right Arm, BP Position: Sitting, BP Cuff Size: Regular) | Pulse 88 | Temp 35.6 C (96 F) (Tympanic) | Resp 18 | SpO2 97% Pain 0 Physical Exam Constitutional: Appearance: Normal appearance. Cardiovascular: Rate and Rhythm: Normal rate. Pulses: Normal pulses. Pulmonary: Effort: Pulmonary effort is normal. Breath sounds: Normal breath sounds. Abdominal: General: Bowel sounds are normal. Palpations: Abdomen is soft. Musculoskeletal: General: Normal range of motion. Skin: General: Skin is warm and dry. Capillary Refill: Capillary refill takes 2 to 3 seconds. Coloration: Skin is pale. Neurological: General: No focal deficit present. Mental Status: He is alert and oriented to person, place, and time. Psychiatric: Mood and Affect: Mood normal. Behavior: Behavior normal. [facility]-10 Completed this Visit: Yes. [facility]-10: Reason Completed: Status post fall Status post ED visit/hospital admission [facility]-10 Interventions: Fall education provided, reviewed/provided Fall brochure Treatment/Plan: Continue medications as prescribed Keep all upcoming MD appointments Fall precautions Fluids encouraged Protein drinks as tolerated Lawn Care Worker referral Change positions slowly RN CM follow up in 5 weeks. Home Interventions Provided: Reinforced current Plan of Care, including self-management and medication regimen Patient's Goals of Care: Cancer remission Feel better Patient's 'Red Flags': Temp>100.4 Inability to keep fluids down-zofran and compazine ineffective Bp <90/60 Patient Needs to Remember: Call [facility] at with any new or worsening health concerns or problems, red flag symptoms. Referrals Needed: N/a Follow Up: Is there cellular connectivity/connectivity in the home? no Does the patient have internet in the home? Yes Patient encouraged to call the intake phone number for all urgent but not emergent issues. Scheduled to follow up with patient in 6 weeks Sulma Ellis RN 03/22/2024 2:00 PM documented in this encounter Plan of Treatment Upcoming Encounters Date Type Department Care Team (Late st Contact Info) Description 03/28/2024 6:10 PM EDT Anticoagulation Pharmacy, [address] [place] [address] [place] [address] 04/06/2024 9:30 AM EDT Office Visit [facility], [facility] 132 [facility] [place] [address] Beth Salter CRNP [address] [place] [address] 04/16/2024 10:30 AM EDT Scheduled Telephone [facility], [facility] [address] [facility] [place] [address] [address] [facility] [place] [address] 04/16/2024 2:30 PM EDT [facility]medicine [facility] [address] [facility] [place] [address] Rosalio Amaral MD [address] [facility] [place] [address] 04/18/2024 10:00 AM EDT Home Visit [facility], [facility] 132 [facility] [place] [address] Sulma Seth, RN [address] [place] [address] 04/19/2024 9:30 AM EDT Office Visit Cardiology [address] [place] [address] Tim Ruiz PA-C [address] [place] [address] 05/01/2024 2:30 PM EDT [facility] [address] [place] [address] Sulma Seth, BOBBY [address] [place] [address] 05/11/2024 11:40 AM EDT Office Visit Sleep Disorders Ctr [facility] [address] [place] [phone] Tona Mondragon DO [address] [place] [address] 05/15/2024 2:00 PM EDT Telemedicine H[facility]ology [facility] Tyree Jordan [address] [place] [address] Thierno Patel, LALA [address] [place] [address] 06/20/2024 3:00 PM EDT Telemedicine [facility] Tyree UGARTE [address] [place] [address] Rosalio Amaral MD [address] [place] [address] 10/30/2024 1:45 PM EST Office Visit [facility], [facility] [address] [place] [address] Devyn Paniagua MD [address] [place] [address] 01/01/2025 10:20 AM EDT Office Visit [facility] [address] [place] [address] Haley Aguero PA-C [address] [place] [address] Health Maintenance Due Date Last Done Comments [...] 01/31/2023, Additional history exists GFR 09/22/2024 03/22/2024, 070 04/2024, 03/14/2024, Additional history exists Diabetic Eye Exam 01/18/2025 01/19/2024, , 07/11/2023, Additional history exists Albumin/Creatinine Ratio 01/26/2025 024, 12/30/2023, 09/08/2023, Additional history exists CKD PHOS USE SMARTSET 67860 03/09/202502/11, 03/08/2024, 03/07/2024, Additional history exists CKD HGB USE SMARTSET 76543 03/19/202503/19, 02/28/2024, 02/20/2024, Additional history exists DTaP,Tdap,and [...] this encounter Medical Devices Implanted Type Area Utility Bill Collection Clerk Device Identifier Shelf Expiration Date Model / Serial / Lot Port Power Mri W/8fr Cath - [id number] Implanted:Qty: 1 on 09/26/2020 by Simone Michelle MD at OR [facility] Right: Chest CR BARD : PERIPHERAL VASCULAR 10/12/2021 [id number] / / [id number] Description:right IJ Lens Intraoc 19.0 - [id number] - [id number] Implanted:Qty: 1 on 02/03/2021 by Chris Sexton MD at OR [facility] Right: Eye [employer] 09/11/2025 [id number] / [id number] / Lens Intraoc 19.0 - [id number] - [id number] Implanted:Qty: 1 on 02/24/2021 by Chris Sexton MD at OR [facility] Left: Eye BAUSCH [employer] LOMB 10/12/2025 [id number] / [id number] System Urolift - [id number] Implanted:Qty: 2 on 03/17/2023 by Devyn Paniagua MD at OR [facility] N/A: Urethra [employer] 11/18/2023 [id number] / / [id number] System Urolift - [id number] Implanted:Qty: 3 on 03/17/2023 by Devyn Paniagua MD at OR [facility] N/A: Urethra [employer] 11/03/2023 [id number] / / [id number] documented as of this encounter Visit Diagnoses [...] and were consensually agreed upon. Care Teams Bobbin Sorter Relationship Specialty Start Date End Date Jaime Garcia MD [address] [place] [address] [place] [phone] PCP - General Family Medicine 10/15/20 documented as of this encounter"
--- OUTSIDE RECORDS SUMMARY | 2024-05-13 06:03 | External Medical Summary | Summary of Care ---
Author Name Unknown Organization [facility] Address [address] [place] [address] Phone [phone] Care Team Providers Care Bottle Washer Machine Name Role Phone Jaime Garcia MD Primary Care Provide r Encounter Details Date Type Department Care Team (Late st Contact Info) Description 03/22/2024 Orders Only Laboratory [address] [place] [phone] Riddhi Mo [address] [place] [address] Primary cortisol resistance (HCC)* Allergies Active Allergy Reactions Criticality Noted Date Comments Atorvastatin Muscle pain High 03/30/2019 Ezetimibe Muscle pain High 01/25/2020 documented as of this encounter (statuses as of 03/22/2024) Medications Medication Sig Dispensed Refills Start Date [...] 6 mL 3 06/15/2023 4 Active Pen [place] 32G X 4 MM Use as directed. [...] goal of less than 7.0% ([facility]) Take 2 Tablets by mouth in the morning. 180 Tablet 1 01/04/2024 Active DULoxetine HCl 20 MG Oral Capsule Delayed Release Particles (Cymbalta) Take 2 Capsules by mouth in the morning. 180 Capsule 1 01/02/2024 Active Nystatin 980371 UNIT/ML Mouth/Throat SuspensionIndicatio ns:Multiple myeloma in relapse ([facility]) Swish and swallow 5 mL in the morning and 5 mL at noon and 5 mL in the evening and 5 mL before bedtime. 60 mL 1 01/02/2024 Active Magnesium Chloride 64 MG Oral Tablet Delayed Release (Mag64)Indications: Multiple myeloma in relapse ([facility]) Take 1 Tablet by mouth in [...] as of this encounter (statuses as of 03/22/2024) Active Problems Problem Noted Date Diagnosed Date [...] as of this encounter (statuses as of 03/22/2024) Resolved Problems Problem Noted Date Diagnosed Date [...] as of this encounter (statuses as of 03/22/2024) Immunizations Name Administration Dates Next Due COVID-19, [...] Description 03/22/2024 2:00 PM EDT [facility] [address] [place] [address] Sulma Seth RN 132 [facility] [place] [address] 03/28/2024 6:10 PM EDT Anticoagulation Pharmacy, [address] [place] [address] [place] [address] 04/06/2024 9:30 AM EDT Office Visit Cardiology, [facility] 132 [facility] [place] [address] Beth Salter CRNP [address] [address] 04/16/2024 2:30 PM EDT Telemedicine [facility] Tyree UGARTE [address] [place] [address] Rosalio Amaral MD 1000 [address] [facility] [place] [address] 04/18/2024 10:00 AM EDT [facility] Visit [facility], [facility] [address] [place] [address] Sulma Seth, RN [address] [place] [address] 04/19/2024 9:30 AM EDT Office Visit Cardiology [address] [place] [address] Tim Ruiz PAPageC [address] [place] [address] 05/11/2024 11:40 AM EDT Office Visit Sleep Disorders [facility] [address] [place] [phone] Tona Mondragon DO [address] [place] [address] 05/15/2024 2:00 PM EDT [facility]medicine [facility] [address] [place] [address] Thierno Patel, PAPageC [address] [place] [address] 06/20/2024 3:00 PM EDT Telemedicine [facility] Tyree Jordan [address] [place] [address] Rosalio Amaral MD [address] [place] [address] 10/30/2024 1:45 PM EST Office Visit Urology, [facility] [address] [place] [address] Devyn Paniagua MD [address] [place] [address] 01/01/2025 10:20 AM EDT Office Visit Otolaryngology [facility] [address] [place] [address] Haley Aguero PA-C [address] [place] [address] Pending Results Name Type Priority Associated Diagnoses Date /Time ADRENOCORTICOTROPIC HORMONE Lab Routine Primary cortisol resistance (HCC) 03/22/2024 11:26 AM EDT CORTISOL Lab Routine Primary cortisol resistance (HCC) 03/22/2024 11:26 AM EDT PLASMA RENIN ACTIVITY, LC/MS/MS Lab Routine Primary cortisol resistance (HCC) 03/22/2024 11:26 AM EDT BASIC METABOLIC PANEL Lab Routine Primary cortisol resistance (HCC) 03/22/2024 11:26 AM EDT 21-HYDROXYLASE ANTIBODY Lab Routine Primary cortisol resistance (HCC) 03/22/2024 11:26 AM EDT Scheduled Orders Name Type Priority Associated Diagnoses Orde r Schedule ADRENOCORTICOTROPIC HORMONE Lab Routine Primary cortisol resistance (HCC) Expected: 03/22/2024, Expires: 03/22/2025 CORTISOL Lab Routine Primary cortisol resistance (HCC) Expected: 03/22/2024, Expires: 03/22/2025 PLASMA RENIN ACTIVITY, LC/MS/MS Lab Routine Primary cortisol resistance (HCC) Expected: 03/22/2024, Expires: 03/22/2025 BASIC METABOLIC PANEL Lab Routine Primary cortisol resistance (HCC) Expected: 03/22/2024, Expires: 03/22/2025 21-HYDROXYLASE ANTIBODY Lab Routine Primary cortisol resistance (HCC) Expected: 03/22/2024, Expires: 03/22/2025 Health Maintenance Due Date Last Done Comments Cologuard 2015 Fecal Occult Blood Test 2015 Sigmoidoscopy 2015 Depression Screening 01/05/2022 01/05/2021 Diabetic Foot Exam 12/14/2022 12/14/2021, 0 10/15/2020, 06/25/2019 COVID-19 Vaccine ( season) 2023 10/06/2021, 06/24/2021, 06/23/2021 HbA1c 01/05/2024 07/06/2023, 080 11/2022, 03/29/2023, Additional history exists Influenza Vaccine (FLU shot) (#1) 2024 08/22/2023, 06/10/2022, 07/23/2021, Additional history exists Pneumococcal Vaccine: Pediatrics (0 to 5 Years) and At-Risk Patients (6 to 64 Years) (3 of 3 - PPSV23 or PCV20) 05/22/2024 05/13/2020, 05/22/2019 TSH 07/25/2024 07/25/2023, 03/12, 01/31/2023, Additional history exists GFR 09/19/2024 03/19/2024, 070 11/2023, 03/14/2024, Additional history exists Diabetic Eye Exam 01/18/2025 01/19/2024, , 07/11/2023, Additional history exists Albumin/Creatinine Ratio 01/26/2025 024, 12/30/2023, 09/08/2023, Additional history exists CKD PHOS USE SMARTSET 69439 03/09/202502/11, 03/08/2024, 03/07/2024, Additional history exists CKD HGB USE SMARTSET 68260 03/19/202503/19, 02/28/2024, 02/20/2024, Additional history exists DTaP,Tdap,and [...] this encounter Medical Devices Implanted Type Area Vehicle Painter Device Identifier Shelf Expiration Date Model / Serial / Lot Port Power Mri W/8fr Cath - [id number] Implanted:Qty: 1 on 09/26/2020 by Simone Michelle MD at OR [facility] Right: Chest CR BARD : PERIPHERAL VASCULAR 10/12/2021 [id number] / / [id number] Description:right IJ Lens Intraoc 19.0 - [id number] - [id number] Implanted:Qty: 1 on 02/03/2021 by Chris Sexton MD at OR [facility] Right: Eye [employer]USCH [employer] LOMB 09/11/2025 [id number] / [id number] / Lens Intraoc 19.0 - [id number] - [id number] Implanted:Qty: 1 on 02/24/2021 by Chris Sexton MD at OR [facility] Left: Eye BAUSCH & LOMB 10/12/2025 [id number] / [id number] / [id number] System Urolift - [id number] Implanted:Qty: 2 on 03/17/2023 by Devyn Paniagua MD at OR [facility] N/A: Urethra [employer] 11/18/2023 [id number] / / [id number] System Urolift - [id number] Implanted:Qty: 3 on 03/17/2023 by Devyn Paniagua MD at OR [facility] N/A: Urethra [employer] 11/03/2023 [id number] / / [id number] documented as of this encounter Visit Diagnoses Diagnosis Primary cortisol resistance (HCC)- Primary Other specified disorders of adrenal glands documented in this encounter Additional Health Concerns [...] and were consensually agreed upon. Care Teams Bottle Washer Machine Relationship Specialty Start Date End Date Jaime Garcia MD [address] [place] [address] [place] [address] PCP - General Family Medicine 10/15/20 documented as of this encounter
--- OUTSIDE RECORDS SUMMARY | 2024-05-13 06:03 | External Medical Summary | Summary of Care ---
Author Name Unknown Organization [facility] Address [address] [place] [address] Phone [phone] Care Team Providers Care Curriculum Assistant Name Role Phone Jaime Garcia MD Primary Care Provide r Encounter Details Date Type Department Care Team (Late st Contact Info) Description 03/27/2024 Orders Only Family Medicine [address] [place] [phone] Jaime Garcia MD [address] [place] [address] [place] [address] Allergies Active Allergy Reactions Criticality Noted Date [...] goal of less than 7.0% ([facility]) Use as directed daily. Test [...] 6 mL 3 06/15/2023 4 Active Pen [place] 32G X 4 MM Use as [...] goal of less than 7.0% ([facility]) Take 2 Tablets by mouth in the morning. 180 Tablet 1 01/04/2024 Active DULoxetine HCl 20 MG Oral Capsule Delayed Release Particles (Cymbalta) Take 2 Capsules by mouth in the morning. 180 Capsule 1 01/02/2024 Active Nystatin 652533 UNIT/ML Mouth/Throat SuspensionIndicatio ns:Multiple myeloma in relapse ([facility]) Swish and swallow 5 mL [...] Description 03/28/2024 6:10 PM EDT Anticoagulation Pharmacy, [address] [place] [address] [place] [address] 04/06/2024 9:30 AM EDT Office Visit Cardiology, [facility] 132 [facility] [place] [address] Beth Salter CRNP [address] [place] [address] [place] [address] 04/16/2024 10:30 AM EDT Scheduled Telephone [facility] [address] [facility] [place] [address] Yecenia Back [address]N [address] [place] [address] 04/16/2024 2:30 PM EDT Telemedicine H[facility]ology [facility] Tyree Jordan [address] [place] [address] Rosalio Amaral MD [address] [place] [address] 04/18/2024 10:00 AM EDT [facility], [facility] [address] [place] [address] Sulma Seth, BOBBY [address] [place] [address] 04/19/2024 9:30 AM EDT Office Visit Cardiology [address] [place] [address] Tim Ruiz PAPageC [address] [place] [address] 05/01/2024 2:30 PM EDT Home Visit [facility], [facility] [address] [place] [address] Sulma Seth, BOBBY [address] [place] [address] 05/11/2024 11:40 AM EDT Office Visit Sleep Disorders Ctr [facility] [address] [place] [phone] Tona Mondragon DO [address] [place] [address] 05/15/2024 2:00 PM EDT Telemedicine H[facility]ology [facility] Tyree UGARTE [address] [place] [address] Thierno Patel PA-C [facility] [place] [address] 06/20/2024 3:00 PM EDT Telemedicine H[facility]ology [facility] Marly UGARTESumas [address] [place] [address] Rosalio Amaral MD [address] [facility] [place] [address] 10/30/2024 1:45 PM EST Office Visit [facility], [facility] [place] [address] Devyn Paniagua MD [address] [place] [address] 01/01/2025 10:20 AM EDT Office Visit Otolaryngology [facility] 132 [facility] [place] [address] Haley Aguero PA-C 132 [facility] [place] [address] Health Maintenance Due Date Last Done Comments [...] Additional history exists CKD PHOS USE SMARTSET 96966 03/09/202502/11, 03/08/2024, 03/07/2024, Additional history exists CKD HGB USE SMARTSET 51072 03/19/202503/19, 02/28/2024, 02/20/2024, Additional history exists DTaP,Tdap,and [...] this encounter Medical Devices Implanted Type Area Plaster Tender Device Identifier Shelf Expiration Date Model / Serial / Lot Port Power Mri W/8fr Cath - [id number] Implanted:Qty: 1 on 09/26/2020 by Simone Michelle MD at OR [facility] Right: Chest CR BARD : PERIPHERAL VASCULAR 10/12/2021 [id number] / / [id number] Description:right IJ Lens Intraoc 19.0 - [id number] - [id number] Implanted:Qty: 1 on 02/03/2021 by Chris Sexton MD at OR [facility] Right: Eye BAUSCH [employer] LOMB 09/11/2025 [id number] / [id number] / Lens Intraoc 19.0 - [id number] - [id number] Implanted:Qty: 1 on 02/24/2021 by Chris Sexton MD at OR [facility] Left: Eye BAUSCH & LOMB 10/12/2025 [id number] / [id number] System Urolift - [id number] Implanted:Qty: 2 on 03/17/2023 by Devyn Paniagua MD at OR [facility] N/A: Urethra [employer] 11/18/2023 [id number] / / [id number] System Urolift - [id number] Implanted:Qty: 3 on 03/17/2023 by Devyn Paniagua MD at OR [facility] N/A: Urethra [employer] 11/03/2023 [id number] / / [id number] documented as of this encounter Procedures Procedure Name Priority Date/Time Associated Diagnosis Comments CHEMISTRY-OUTSIDE Routine 03/26/2024 documented in this encounter Results * (ABNORMAL) CHEMISTRY-OUTSIDE (03/26/2024) Not all results display below - see scan for full detail OUTSIDE LAB (SEE SCANNED REPORT) Comment:SEE SCAN- FIBRINOGEN LVL, PT/INR, PTT, CMP, CRP, FERRITIN CREATININE-OUTSID E LAB 1.34(A) 0.70 - 1.30 MG/DL OUTSIDE LAB (SEE SCANNED REPORT) EGFR-OUTSIDE LAB 63 >=60 ML/MIN OUTSIDE LAB (SEE SCANNED REPORT) [...] LAB OUTSIDE LAB (SEE SCANNED REPORT) HEMOGLOBIN, A3T-[id number] LAB OUTSIDE LAB (SEE SCANNED REPORT) PHOSPHORUS-OUTSID E LAB OUTSIDE LAB (SEE SCANNED REPORT) PTH-OUTSIDE LAB OUTS [facility] LAB (SEE SCANNED REPORT) MICROALBUMIN RATIO-OUTSIDE LAB OUTSIDE LA B (SEE SCANNED REPORT) PROTEIN, UA-OUTSIDE LAB OUTSIDE LAB (SEE SCANNED REPORT) HGB OUTSIDE LA B (SEE SCANNED REPORT) 03/26/2024 Jaime Garcia MD [...] and were consensually agreed upon. Care Teams Curriculum Assistant Relationship Specialty Start Date End Date Jaime Garcia MD [address] [place] [address] [place] [address] PCP - General Family Medicine 10/15/20 documented as of this encounter
--- OUTSIDE RECORDS SUMMARY | 2024-05-13 06:03 | External Medical Summary ---
Author Name Unknown Address Unknown Organization : Laboratory Report Ordering Provider Test Date Status RAMSES GUERRIER 03/22/2024 11:26:42 Final Observation Date Value Abnormality Reference (Units ) Status Adrenal Ab 03/22/2024 11:26:42 SEE BELOW Final TESTS--------- ----RESULTS--------UNITS--REF. RANGE---
Adrenal Ab NEGATIVE NEGATIVE
This test was developed and its analytical
performance characteristics have been determined
by [facility]. It has not been cleared or
approved by FDA. This assay has been validated
pursuant to the CLIA regulations and is used for
clinical purposes.
Test performed by [facility]
[address],
[place] [address]

Healthcare Market Consultant: Gracie Allan MD,PHD,BUNNY Performing Location
--- OUTSIDE RECORDS SUMMARY | 2024-05-13 06:03 | External Medical Summary | Summary of Care ---
Author Name Unknown Organization [facility] Address [address] [place] [address] Phone [phone] Care Team Providers Care Accelerator Technician Name Role Phone Jaime Garcia MD Primary Care Provide r Reason for Visit * Reason Comments Outpatient Testing Encounter Details Date Type Department Care Team (Late st Contact Info) Description 03/22/2024 10:20 AM EDT Laboratory Laboratory [address] [place] [phone] [address] [place] [address] Primary cortisol resistance (HCC) Allergies Active Allergy Reactions Criticality Noted Date Comments Atorvastatin Muscle pain High 03/30/2019 Ezetimibe Muscle pain High 01/25/2020 documented as of this encounter (statuses as of 03/22/2024) Medications Medication Sig Dispensed Refills Start Date End Date Status CPAP every night at bedtime. Active oxygen IN GAS Use 2 L/min(Oxygen) as directed at bedtime. 1 Each 11/11/2020 Active Mantis Digital ArtsTouch Ultra Blue In Vitro Strip (Glucose Blood)Indications:T [...] 6 mL 3 06/15/2023 4 Active Pen [place] 32G X 4 MM Use as directed. [...] morning. 180 Capsule 1 01/02/2024 Active Nystatin 278374 UNIT/ML Mouth/Throat SuspensionIndicatio ns:Multiple myeloma in relapse ([facility]) Swish and swallow 5 mL in the morning and 5 mL at noon and 5 mL in the evening and 5 mL before bedtime. 60 mL 1 01/02/2024 Active Magnesium Chloride 64 MG Oral Tablet Delayed Release (Mag64)Indications: Multiple myeloma in relapse ([facility]) Take 1 Tablet by mouth in the [...] Overview: Dr Rodriges/ [facility] DIRECTIVE INFORMATION 10/13/2006 Overview: No, Advance [...] Description 03/22/2024 2:00 PM EDT Home Visit [facility] [address] [place] [address] Sulma Seth, BOBBY 132 [facility] [place] [address] 03/28/2024 6:10 PM EDT Anticoagulation Pharmacy, [address] [place] [address] [place] [address] 04/06/2024 9:30 AM EDT Office Visit Cardiology, [facility] [address] [place] [address] Beth Salter CRNP [address] [place] [address] [place] [address] 04/16/2024 2:30 PM EDT Telemedicine H[facility]ology [facility] Tyree UGARTE [address] [facility] [place] [address] Rosalio Amaral MD [address] [facility] [place] [address] 04/18/2024 10:00 AM EDT Home Visit [facility] [address] [place] [address] Sulma Seth, RN [address] [place] [address] 04/19/2024 9:30 AM EDT Office Visit Cardiology [address] [place] [address] Tim Ruiz PA-C [address] [place] [address] 05/11/2024 11:40 AM EDT Office Visit [facility] Disorders [facility]tr [facility] [address] [place] [phone] Tona Mondragon DO [address] [place] [address] 05/15/2024 2:00 PM EDT Telemedicine H[facility]ology [facility] Tyree Jordan [address] [facility] [place] [address] Thierno Patel PA-C [address] [facility] [place] [address] 06/20/2024 3:00 PM EDT Telemedicine H[facility]ology [facility] Tyree Jordan [address] [place] [address] Rosalio Amaral MD [address] [place] [address] 10/30/2024 1:45 PM EST Office Visit Urology, [facility] [address] [place] [address] Devyn Paniagua MD [address] [place] [address] 01/01/2025 10:20 AM EDT Office Visit Otolaryngology [facility] [address] [place] [address] Haley Aguero PA-C [address] [place] [address] Pending Results Name Type Priority Associated Diagnoses Date /Time ADRENAL AB SCREEN W/REFL TITER Lab Routine Primary cortisol resistance ([facility]) 03/22/2024 11:26 AM EDT ADRENOCORTICOTROPIC HORMONE Lab Routine Primary cortisol resistance ([facility]) 03/22/2024 11:26 AM EDT CORTISOL Lab Routine Primary cortisol resistance ([facility]) 03/22/2024 11:26 AM EDT PLASMA RENIN ACTIVITY, LC/MS/MS Lab Routine Primary cortisol resistance ([facility]) 03/22/2024 11:26 AM EDT BASIC METABOLIC PANEL Lab Routine Primary cortisol resistance ([facility]) 03/22/2024 11:26 AM EDT 21-HYDROXYLASE ANTIBODY Lab Routine Primary cortisol resistance ([facility]) 03/22/2024 11:26 AM EDT Health Maintenance Due Date Last [...] Additional history exists CKD PHOS USE SMARTSET 75192 03/09/202502/11, 03/08/2024, 03/07/2024, Additional history exists CKD HGB USE SMARTSET 46024 03/19/202503/19, 02/28/2024, 02/20/2024, Additional history exists DTaP,Tdap,and [...] this encounter Medical Devices Implanted Type Area Biodiesel Processing Technician Device Identifier Shelf Expiration Date Model / Serial / Lot Port Power Mri W/8fr Cath - [id number] Implanted:Qty: 1 on 09/26/2020 by Simone Michelle MD at OR [facility] Right: Chest CR BARD : PERIPHERAL VASCULAR 10/12/2021 [id number] / / [id number] Description:right IJ Lens Intraoc 19.0 - [id number] - [id number] Implanted:Qty: 1 on 02/03/2021 by Chris Sexton MD at OR [facility] Right: Eye BAUSCH [employer] LOMB 09/11/2025 [id number] / [id number] / Lens Intraoc 19.0 - [id number] - [id number] Implanted:Qty: 1 on 02/24/2021 by Chris Sexton MD at OR [facility] Left: Eye BAUSCH & LOMB 10/12/2025 [id number] / [id number] System Urolift - [id number] Implanted:Qty: 2 on 03/17/2023 by Devyn Paniagua MD at OR [facility] N/A: Urethra [employer] 11/18/2023 [id number] / / [id number] System Urolift - [id number] Implanted:Qty: 3 on 03/17/2023 by Devyn Paniagua MD at OR 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 Care Teams Accelerator Technician Relationship Specialty Start Date End Date Jaime Garcia MD [address] [place] [address] [place] [phone] PCP - General Family Medicine 10/15/20 documented as of this encounter
--- OUTSIDE RECORDS SUMMARY | 2024-05-13 06:04 | External Medical Summary | Summary of Care ---
Author Name Unknown Organization [facility] Address [address] [place] [address] Phone [phone] Care Team Providers Care Wine Cellar Worker Name Role Phone Jaime Garcia MD Primary Care Provide r Encounter Details Date Type Department Care Team (Late st Contact Info) Description 03/20/2024 Orders Only Family Medicine [address] [place] [phone] Jaime Garcia MD [address] [place] [address] [place] [address] Allergies Active Allergy Reactions Criticality Noted Date Comments Atorvastatin Muscle pain High 03/30/2019 Ezetimibe Muscle pain High 01/25/2020 documented as of this encounter (statuses as of 03/20/2024) Medications Medication Sig Dispensed Refills Start Date [...] mL 3 06/15/2023 4 Active Pen [place] 32G X 4 MM Use as [...] g Administer 2 g intravenously daily. Active oxyCODONE HCl 5 MG Oral Tablet (Oxy IR)Indications:Mult iple myeloma in relapse (HCC) Take 1 Tablet by mouth every 4 hours as needed for breakthrough pain. 30 Tablet 11/23/2023 Active Albuterol Sulfate HFA 108 (90 Base) [...] morning. 180 Capsule 1 01/02/2024 Active Nystatin 678568 UNIT/ML Mouth/Throat SuspensionIndicatio ns:Multiple myeloma in relapse [...] the morning. 90 Tablet 1 03/12/2024 Active documented as of this encounter (statuses as of 03/20/2024) Active Problems Problem Noted Date Diagnosed Date [...] as of this encounter (statuses as of 03/20/2024) Resolved Problems Problem Noted Date Diagnosed Date [...] as of this encounter (statuses as of 03/20/2024) Immunizations Name Administration Dates Next Due COVID-19, [...] Description 03/22/2024 2:00 PM EDT [facility] [place] [address] Sulma Seth RN [address] [place] [address] 03/28/2024 6:10 PM EDT Anticoagulation Pharmacy, [address] [place] [address] [place] [address] 04/06/2024 9:30 AM EDT Office Visit Cardiology, [facility] 132 [facility] [place] [address] Beth Salter CRNP [address] [place] [id number] 04/16/2024 2:30 PM EDT Telemedicine [facility] Tyree UGARTE [address] [facility] [place] [address] Rosalio Amaral MD [address] [facility] [place] [address] 04/18/2024 10:00 AM EDT [facility], [facility] [address] [place] [address] Sulma Seth, RN [address] [place] [address] 04/19/2024 9:30 AM EDT Office Visit Cardiology [address] [place] [address] Tim Ruiz PAPageC [address] [place] [address] 05/11/2024 11:40 AM EDT Office Visit Sleep Disorders [facility] [address] [place] [phone] Tona Mondragon DO [address] [place] [address] 05/15/2024 2:00 PM EDT [facility]medicine [facility] [address] [place] [address] Thierno Patel, PA-C [address] [place] [address] 06/20/2024 3:00 PM EDT Telemedicine H[facility]ology [facility] Tyree Jordan [address] [place] [address] Rosalio Amaral MD [address] [place] [address] 10/30/2024 1:45 PM EST Office Visit Urology, [facility] [address] [place] [address] Devyn Paniagua MD 27 [place] [address] 01/01/2025 10:20 AM EDT Office Visit Otolaryngology [facility] [address] [place] [address] Haley Aguero PA-C [address] [place] [address] Health Maintenance Due Date Last Done Comments [...] PCV20) 05/22/2024 05/13/2020, 05/22/2019 TSH 07/25/2024 07/25/2023, 07/1 04/2023, 01/31/2023, Additional history exists GFR 09/14/2024 03/19/2024, 07/0 11/2023, 03/14/2024, Additional history exists Diabetic Eye Exam 01/18/2025 01/19/2024, , 07/11/2023, Additional history exists Albumin/Creatinine Ratio 01/26/20252 024, 12/30/2023, 09/08/2023, Additional history exists CKD HGB USE SMARTSET 94204 02/27/202503/19, 02/28/2024, 02/20/2024, Additional history exists CKD PHOS USE SMARTSET 82934 03/09/202502/11, 03/08/2024, 03/07/2024, Additional history exists DTaP,Tdap,and Td Vaccines (2 [...] Lot Port Power Mri W/8fr Cath - [id number] Implanted:Qty: 1 on 09/26/2020 by Simone Michelle MD at OR [facility] Right: Chest CR BARD : PERIPHERAL VASCULAR 10/12/2021 [id number] / / [id number] Description:right IJ Lens Intraoc 19.0 - [id number] - [id number] Implanted:Qty: 1 on 02/03/2021 by Chris Sexton MD at OR [facility] Right: Eye [employer] LOM[employer] 09/11/2025 [id number] / [id number] / Lens Intraoc 19.0 - [id number] - [id number] Implanted:Qty: 1 on 02/24/2021 by Chris Sexton MD at OR [facility] Left: Eye BAUSCH [employer] LOMB 10/12/2025 [id number] / [id number] / [id number] System Urolift - [id number] Implanted:Qty: 2 on 03/17/2023 by Devyn Paniagua MD at OR [facility] N/A: Urethra [employer] 11/18/2023 [id number] / / [id number] System Urolift - [id number] Implanted:Qty: 3 on 03/17/2023 by Devyn Paniagua MD at OR [facility] N/A: Urethra [employer] 11/03/2023 [id number] / / [id number] documented as of this encounter Procedures Procedure Name Priority Date/Time Associated Diagnosis Comments CHEMISTRY-OUTSIDE Routine 03/19/2024 documented in this encounter Results * (ABNORMAL) CHEMISTRY-OUTSIDE (03/19/2024) Not all results display below - see scan for full detail SCAN INCLUDES: PT INR, CBCD, FIBROGEN, PTT, CMP, CRP OUTSIDE LAB (SEE SCANNED REPORT) CREATININE-OUTSID E LAB 1.38(A) 0.70 - 1.30 MG/DL OUTSIDE LAB (SEE SCANNED REPORT) EGFR-OUTSIDE LAB 61 >60 ML/MIN OUTSIDE LAB (SEE SCANNED REPORT) POTASSIUM-OUTSIDE [...] LAB OUTSIDE LAB (SEE SCANNED REPORT) HEMOGLOBIN, M2Z-NGHATKU LAB OUTSIDE LAB (SEE SCANNED REPORT) PHOSPHORUS-OUTSID E LAB OUTSIDE LAB (SEE SCANNED REPORT) PTH-OUTSIDE LAB OUTS ALVAREZ LAB (SEE SCANNED REPORT) MICROALBUMIN RATIO-OUTSIDE LAB OUTSIDE LA B (SEE SCANNED REPORT) PROTEIN, UA-OUTSIDE LAB OUTSIDE LAB (SEE SCANNED REPORT) HGB 10.1(A) 13.5 - 18.0 GM/DL OUTSIDE LAB (SEE SCANNED REPORT) 03/19/2024 Jaime Garcia MD LABORATORY OUTSIDE LAB (SEE [...] and were consensually agreed upon. Care Teams Wine Cellar Worker Relationship Specialty Start Date End Date Jaime Garcia MD [address] [place] [address] [place] [phone] PCP - General Family Medicine 10/15/20 documented as of this encounter
--- OUTSIDE RECORDS SUMMARY | 2024-05-13 06:04 | External Medical Summary | Summary of Care ---
Author Name Unknown Organization [facility] Address [address] [place] [address] Phone [phone] Care Team Providers Care Agricultural Commodities Grader Name Role Phone Jaime Garcia MD Primary Care Provide r Encounter Details Date Type Department Care Team (Late st Contact Info) Description 02/27/2024 Telephone Home Infusion, [address] [address] Rosalio Amaral MD [facility] [place] [address] Allergies Active Allergy Reactions Criticality Noted Date Comments Atorvastatin Muscle pain High 03/30/2019 Ezetimibe Muscle pain High 01/25/2020 documented as of this encounter (statuses as of 02/27/2024) Medications Medication Sig Dispensed Refills Start Date End Date Status NSS 0.9 % SOLN with daratumumab 400 MG/20ML SOLN 16 mg/kgIndications:ev nadeem 4 weeks Administer intravenously every 14 days. Active CPAP every night at bedtime. Active oxygen [...] to Hizentra. 30 Tablet 3 3 Active Dexamethasone 4 MG Oral [...] mL 3 3 06/14/20 24 Active Pen [place] 32G X 4 MM Use as directed. [...] 6 PM) 600 Tablet 3 3 Active Vemlidy 25 MG Oral Tablet (Tenofovir Alafenamide Fumarate) Take 1 tablet by mouth in the morning. 90 Tablet 1 3 Active Ondansetron HCl 8 MG Oral Tablet (Zofran)Indications :Nausea Take 1 Tablet by mouth every 8 hours as needed for Nausea. 30 Tablet 3 4 Active Ondansetron 4 MG Oral Tablet Disintegrating (Zofran) 3 Active Potassium Chloride ER 20 MEQ Oral Tablet Extended Release Take 1 Tablet by mouth in the morning. Active NSS 0.9 % SOLN 100 mL with cefTRIAXone 2 GM SOLR 2 g Administer 2 g intravenously daily. Active Warfarin Sodium 2.5 MG Oral Tablet (Coumadin)Indicatio ns:Atrial fibrillation, unspecified type ([facility]),Anticoagulati on management encounter,custodial current use of anticoagulant therapy,Paroxysmal atrial fibrillation (HCC) Take up to one tablet by mouth daily as directed by anticoagulation clinic 90 Tablet 3 4 Active Dapsone 25 MG Oral TabletIndications:M ultiple myeloma in relapse ([facility]) TAKE ONE TABLET BY MOUTH EVERY DAY 90 Tablet 1 4 10/27/19 25 Active Torsemide 10 MG Oral Tablet (Demadex)Indication s:takes extra tab for swelling, wt gain Take 1 Tablet by mouth in the morning. As needed.. 4 Active oxyCODONE HCl 5 MG Oral Tablet (Oxy IR)Indications:Mult iple myeloma in relapse ([facility]) Take 1 Tablet by mouth every 4 hours as needed for breakthrough pain. 30 Tablet 4 Active Albuterol Sulfate HFA 108 (90 Base) [...] morning. 180 Capsule 1 4 Active Nystatin 272389 UNIT/ML Mouth/Throat SuspensionIndicatio ns:Multiple myeloma in relapse [...] THE MORNING 90 Tablet 3 4 Active documented as of this encounter (statuses as of 02/27/2024) Active Problems Problem Noted Date Diagnosed Date [...] as of this encounter (statuses as of 02/27/2024) Resolved Problems Problem Noted Date Diagnosed Date [...] as of this encounter (statuses as of 02/27/2024) Immunizations Name Administration Dates Next Due COVID-19, [...] encounter Miscellaneous Notes * Telephone Encounter - Jazmín Rojas LPN - 02/27/2024 9:39 AM EDT MAKEDA is following up on eligibility check for Privigen for Jerardo. We will need orders sent to provide service. Also- will he be receiving his first 2 doses at the infusion center? I did not see anything scheduled yet. Please advise. Thank you. documented in this encounter Plan of Treatment Upcoming Encounters Date Type Department Care Team (Late st Contact Info) Description 03/16/2024 8:30 AM EDT Anticoagulation Pharmacy, [address] [place] [address] [place] [address] 03/16/2024 2:00 PM EDT Telemedicine Hematology [facility] Tyree UGARTE [address] [facility] [place] [address] Thierno Patel PA-C [address] [facility] [place] [address] 04/06/2024 9:30 AM EDT Office Visit Cardiology, [facility] 132 [facility] [place] [address] Beth Salter CRNP [address] [place] [address] [place] [address] 04/16/2024 2:30 PM EDT Telemedicine H[facility]ology [facility] Tyree UGARTE [address] [facility] [place] [address] Rosalio Amaral MD [address] [facility] [place] [address] 04/18/2024 10:00 AM EDT Home Visit [facility], [facility] 132 [facility] [place] [address] Sulma Seth, RN [address] [place] [address] 04/19/2024 9:30 AM EDT Office Visit Cardiology [address] [place] [address] Tim Ruiz PA-C [address] [place] [address] 05/15/2024 2:00 PM EDT Telemedicine [facility] [address] [place] [address] Thierno Patel PA-C [address] [place] [address] 06/20/2024 3:00 PM EDT Telemedicine [facility] [address] [place] [address] Rosalio Amaral MD [address] [place] [address] 10/30/2024 1:45 PM EST Office Visit Urology, [facility] 132 [place] [address] Devyn Paniagua MD [address] [place] [address] [place] [address] 01/01/2025 10:20 AM EDT Office Visit Otolaryngology [facility] 132 [place] [address] Haley Aguero PA-C 132 [place] [address] Health Maintenance Due Date Last Done Comments Cologuard 2015 Fecal Occult Blood Test 2015 Sigmoidoscopy 2015 Depression Screening 01/05/2022 01/05/2021 Diabetic Foot Exam 12/14/2022 12/14/2021, 0 10/15/2020, 06/25/2019 COVID-19 Vaccine ( - season) 2023 10/06/2021, 06/24/2021, 06/23/2021 HbA1c 01/05/2024 07/06/2023, 08/0 11/2022, 03/29/2023, Additional history exists Pneumococcal Vaccine: Pediatrics (0 to 5 Years) and At-Risk Patients (6 to 64 Years) (3 of 3 - PPSV23 or PCV20) 05/22/2024 05/13/2020, 05/22/2019 TSH 07/25/2024 07/25/2023, 03/12, 01/31/2023, Additional history exists GFR 08/14/2024 02/13/2024, 01/12, 02/10/2024, Additional history exists Diabetic Eye Exam 01/18/2025 01/19/2024, , 07/11/2023, Additional history exists Albumin/Creatinine Ratio 01/26/2025 024, 12/30/2023, 09/08/2023, Additional history exists CKD HGB USE SMARTSET 25295 01/26/202501/26, 01/27/2024, 01/16/2024, Additional history exists CKD PHOS USE SMARTSET 61276 02/12/2025 06/0 11/2023, 01/27/2024, 01/16/2024, Additional history exists DTaP,Tdap,and Td Vaccines (2 [...] encounter Medical Devices Implanted Type Area It Infrastructure Specialist Device Identifier Shelf Expiration Date Model / Serial / Lot Port Power Mri W/8fr Cath - [id number] Implanted:Qty: 1 on 09/26/2020 by Simone Michelle MD at OR [facility] Right: Chest CR BARD : PERIPHERAL VASCULAR 10/12/2021 [id number] / / [id number] Description:right IJ Lens Intraoc 19.0 - [id number] - [id number] Implanted:Qty: 1 on 02/03/2021 by Chris Sexton MD at OR [facility] Right: Eye [employer]OM[employer] 09/11/2025 [id number] / [id number] / Lens Intraoc 19.0 - [id number] - [id number] Implanted:Qty: 1 on 02/24/2021 by Chris Sexton MD at OR [facility] Left: Eye BAUSCH [employer] LOMB 10/12/2025 [id number] / [id number] / [id number] System Urolift - [id number] Implanted:Qty: 2 on 03/17/2023 by Devyn Paniagua MD at OR [facility] N/A: Urethra [employer] 11/18/2023 [id number] / / [id number] System Urolift - [id number] Implanted:Qty: 3 on 03/17/2023 by Devyn Paniagua MD at OR [facility] N/A: Urethra [employer] 11/03/2023 SB502-7 / / [id number] documented as of this encounter Additional Health [...] and were consensually agreed upon. Care Teams Agricultural Commodities Grader Relationship Specialty Start Date End Date Jaime Garcia MD [address] [place] [address] [place] [phone] PCP - General Family Medicine 10/15/20 documented as of this encounter
--- OUTSIDE RECORDS SUMMARY | 2024-05-13 06:04 | External Medical Summary | Summary of Care ---
Author Name Unknown Organization [facility] Address [address] [place] [address] Phone [phone] Care Team Providers Care Technical System Analyst Name Role Phone Eloina Day MD Primary Care Provide r Reason for Visit * Reason Comments Medication Refill Encounter Details Date Type Department Care Team (Late st Contact Info) Description 03/10/2024 Refill Family Medicine [address] [place] [phone] Eloina Day MD [address] [place] [address] [place] [address] Allergies Active Allergy Reactions Criticality Noted Date Comments Atorvastatin Muscle pain High 03/30/2019 Ezetimibe Muscle pain High 01/25/2020 documented as of this encounter (statuses as of 03/12/2024) Medications Medication Sig Dispensed Refills Start Date [...] mL 3 3 06/14/20 24 Active Pen [place] 32G X 4 MM Use as directed. [...] 6 PM) 600 Tablet 3 3 Active Ondansetron HCl 8 MG [...] ons:Atrial fibrillation, unspecified type (HCC),Anticoagulat ion management encounter,snf current use of anticoagulant therapy,Paroxysmal atrial fibrillation (HCC) Take up to one tablet by mouth daily as directed by anticoagulation clinic 90 Tablet 3 4 Active Dapsone 25 MG Oral TabletIndications: Multiple myeloma in relapse ([facility]) TAKE ONE TABLET BY MOUTH EVERY DAY 90 Tablet 1 4 10/27/19 25 Active Torsemide 10 MG Oral Tablet (Demadex)Indicatio [...] morning. 180 Capsule 1 4 Active Nystatin 791283 UNIT/ML Mouth/Throat SuspensionIndicati ons:Multiple myeloma in relapse ([facility]) Swish and swallow 5 mL in the morning and 5 mL at noon and 5 mL in the evening and 5 mL before bedtime. 60 mL 1 4 Active Magnesium Chloride 64 MG Oral Tablet Delayed Release (Mag64)Indications :Multiple myeloma in relapse ([facility] [...] the morning. 90 Tablet 1 4 Active Vemlidy 25 MG Oral Tablet (Tenofovir Alafenamide Fumarate) Take 1 tablet by mouth in the morning. 90 Tablet 1 3 03/10/20 24 Discontinu ed(Refill) documented as of this encounter (statuses as of 03/12/2024) Active Problems Problem Noted Date Diagnosed Date [...] as of this encounter (statuses as of 03/12/2024) Resolved Problems Problem Noted Date Diagnosed Date [...] as of this encounter (statuses as of 03/12/2024) Immunizations Name Administration Dates Next Due COVID-19, [...] encounter Miscellaneous Notes * Telephone Encounter - Eloina Day MD - 03/12/2024 7:46 PM EDT Signed Prescriptions: Disp Refills Vemlidy 25 MG Oral Tablet (Tenofovir Alafe*90 Tab*1 Sig: Take 1 tablet by mouth in the morning. Authorizing Provider: ELOINA DAY * Telephone Encounter - Nany Pan PHARM Tech - 03/12/2024 2:31 PM EDT Pharmacy calling to check on status of vemlidy. Thank you, Nany Pan [facility] 03/12/2024, 2:31 PM * Telephone Encounter - Ellyn Lyn CMA - 03/12/2024 8:18 AM EDTPending Prescriptions: Disp Refills Vemlidy 25 MG Oral Tablet (Tenofovir Alafe*90 Tab*1 Sig: Take 1 tablet by mouth in the morning. * Telephone Encounter - Ellyn Lyn CMA - 03/12/2024 8:17 AM EDT Pending Prescriptions: Disp Refills Vemlidy 25 MG Oral Tablet (Tenofovir Alaf*90 Tab*1 Sig: Take 1 tablet by mouth in the morning. Last Visit: 12/06/2023 (in office), Visit date not found (telemedicine) Next Visit: Visit date not found Last date the medication was ordered: 09/09/2023 Patient Active Problem List Diagnosis Degeneration of [...] (HCC) Chemotherapy-induced neuropathy (HCC) Dehydration Hypogammaglobulinemia (HCC) Labs: Lab Results Component Value Date/Time CREATININE - [facility] 1.2 01/27/2024 09:17 AM CREATININE - [facility] 1.4 (H) 10/03/2020 07:44 AM CREATININE, RANDOM URINE - [facility] 8 01/27/2024 09:18 AM CREATININE, RANDOM URINE - [facility] 322 06/13/2020 07:39 AM CREATININE-OUTSIDE LAB 1.24 03/09/2024 06:52 AM Lab Results Component Value Date/Time POTASSIUM - [facility] 4.6 01/27/2024 09:17 AM POTASSIUM - [facility] 3.9 10/03/2020 07:44 AM POTASSIUM-OUTSIDE LAB 3.8 03/09/2024 06:52 AM Lab Results Component Value Date/Time TSH - [facility] 2.22 07/25/2023 09:43 AM TSH - [facility] 1.93 07/04/2020 07:47 AM Lab Results Component Value Date/Time LDL CHOLESTEROL (CALCULATED) - [facility] 22 01/31/2023 08:42 AM LDL CHOLESTEROL (CALCULATED) - [facility] 149 (H) 12/11/2019 09:47 AM LDL CHOLESTEROL (CALCULATED) - [facility] UNINTERPRETABLE RESULT 12/20/2018 07:52 AM LDL CHOLESTEROL (DIRECT MEASURE) - [facility] 33 07/06/2023 08:48 AM LDL CHOLESTEROL (DIRECT MEASURE) - [facility] 37 03/29/2023 09:09 AM LDL CHOLESTEROL (DIRECT MEASURE) - [facility] 99 07/04/2020 07:47 AM LDL CHOLESTEROL (DIRECT MEASURE) - [facility] NOT APPLICABLE 12/11/2019 09:47 AM LDL CHOLESTEROL (DIRECT MEASURE) - [facility] 108 12/20/2018 07:52 AM Lab Results Component Value Date/Time ALT - [facility] 20 01/27/2024 09:17 AM ALT - [facility] 32 10/03/2020 07:44 AM ALT-OUTSIDE LAB 9 (L) 02/28/2024 12:31 PM Hemoglobin AIC Results: Lab Results Component Value Date/Time HEMOGLOBIN A1C - [facility] 9.3 (H) 07/06/2023 08:53 AM HEMOGLOBIN A1C - [facility] 8.2 (H) 04/14/2023 02:51 PM HEMOGLOBIN A1C - [facility] 8.4 (H) 03/29/2023 09:09 AM HEMOGLOBIN A1C - [facility] 7.8 (H) 07/04/2020 07:47 AM HEMOGLOBIN A1C - [facility] 8.0 (H) 05/15/2020 09:59 AM HEMOGLOBIN A1C - [facility] 7.3 (H) 12/11/2019 09:47 AM * Telephone Encounter - Deuce Elam - 03/10/2024 6:31 AM EDTPending Prescriptions: Disp Refills Vemlidy 25 MG Oral Tablet (Tenofovir Alafe*90 Tab*1 Sig: Take 1tablet by mouth in the morning. documented in this encounter Plan of Treatment Upcoming Encounters Date Type Department Care Team (Late st Contact Info) Description 03/16/2024 2:00 PM EDT Telemedicine Hematology [facility] Tyree UGARTE [address] [place] [address] Thierno Patel PA-C [address] [facility] [place] [address] 03/19/2024 9:00 AM EDT Scheduled Telephone [facility], [facility] 132 [facility] [place] [address] Coordinator, [facility] [address] [facility] [place] [address] 03/19/2024 3:00 PM EDT Office Visit [facility] [address] [facility] [place] [phone] Tona Mondragon DO 132 [facility] [place] [address] 04/06/2024 9:30 AM EDT Office Visit Cardiology, [facility] [address] [facility] [place] [address] Beth Salter CRNP [address] [place] [address] [place] [address] 04/16/2024 2:30 PM EDT Telemedicine H[facility]ology [facility] Tyree UGARTE [facility] [place] [address] Rosalio Amaral MD [address] [facility] [place] [address] 04/18/2024 10:00 AM EDT [facility] Visit [facility], [facility] [address] [facility] [place] [address] Sulma Seth RN [address] [place] [address] 04/19/2024 9:30 AM EDT Office Visit Cardiology [address] [place] [address] Tim Ruiz PA-C [address] [place] [address] 05/15/2024 2:00 PM EDT [facility] [address] [place] [address] Thierno Patel PA-C [address] [place] [address] 06/20/2024 3:00 PM EDT Telemedicine [facility] [address] [place] [address] Rosalio Amaral MD [address] [place] [address] 10/30/2024 1:45 PM EST Office Visit Urology, [facility] 132 [place] [address] Devyn Paniagua MD [address] [place] [address] 01/01/2025 10:20 AM EDT Office Visit Otolaryngology [facility] 132 [place] [address] Haley Aguero PA-C [address] [place] [address] Health Maintenance Due Date Last Done Comments [...] 07/25/2023, 03/12, 01/31/2023, Additional history exists GFR 09/08/2024 03/09/2024, 02/11, 03/08/2024, Additional history exists Diabetic Eye Exam 01/18/2025 01/19/2024, , 07/11/2023, Additional history exists Albumin/Creatinine Ratio 01/26/2025 024, 12/30/2023, 09/08/2023, Additional history exists CKD HGB USE SMARTSET 82895 02/27/202502/27, 02/20/2024, 01/27/2024, Additional history exists CKD PHOS USE SMARTSET 22610 03/09/202502/11, 03/08/2024, 03/07/2024, Additional history exists DTaP,Tdap,and [...] this encounter Medical Devices Implanted Type Area Skein Drier Device Identifier Shelf Expiration Date Model / Serial / Lot Port Power Mri W/8fr Cath - [id number] Implanted:Qty: 1 on 09/26/2020 by Simone Michelle MD at OR [facility] Right: Chest CR BARD : PERIPHERAL VASCULAR 10/12/2021 [id number] / / [id number] Description:right IJ Lens Intraoc 19.0 - [id number] - [id number] Implanted:Qty: 1 on 02/03/2021 by Chris Sexton MD at OR [facility] Right: Eye [employer] 09/11/2025 [id number] / [id number] / Lens Intraoc 19.0 - [id number] - [id number] Implanted:Qty: 1 on 02/24/2021 by Chris Sexton MD at OR [facility] Left: Eye [employer] LOMB 10/12/2025 [id number] / [id number] System Urolift - [id number] Implanted:Qty: 2 on 03/17/2023 by Devyn Paniagua MD at OR [facility] N/A: Urethra [employer] 11/18/2023 [id number] / / [id number] System Urolift - [id number] Implanted:Qty: 3 on 03/17/2023 by Devyn Paniagua MD at OR [facility] N/A: Urethra [employer] 11/03/2023 [id number] / / [id number] documented as of this encounter Additional Health [...] were consensually agreed upon. Care Teams Technical System Analyst Relationship Specialty Start Date End Date Eloina Day MD [address] [place] [address] [place] [address] PCP - General Family Medicine 10/15/20 documented as of this encounter
--- OUTSIDE RECORDS SUMMARY | 2024-05-13 06:04 | External Medical Summary | Summary of Care ---
Author Name Unknown Organization [facility] Address [address] [place] [address] Phone [phone] Care Team Providers Care Stock Replenisher Name Role Phone Jaime Garcia MD Primary Care Provide r Encounter Details Date Type Department Care Team (Late st Contact Info) Description 03/16/2024 2:00 PM EDT Telemedicine [facility]ology [facility] Tyree UGARTE [address] [facility] [place] [address] Thierno Patel PA-C [address] [facility] [place] [address] Multiple myeloma without remission (HCC)* Allergies Active Allergy Reactions Criticality Noted Date Comments Atorvastatin Muscle pain High 03/30/2019 Ezetimibe Muscle pain High 01/25/2020 documented as of this encounter (statuses as of 03/16/2024) Medications Medication Sig Dispensed Refills Start Date [...] myeloma not having achieved remission ([facility]) 5 tabs 2 times monthly 10 [...] differently: 150 mcgOral Daily(AM), Reported on 08/20/2023 Sherry SureClick 140 MG/ML Subcutaneous Solution Auto-injector (evolocumab)Indicat ions:Dyslipidemia, goal LDL below 70 INJECT 140MG (1 INJECTION) UNDER THE SKIN EVERY 14 DAYS. REMOVE FROM REFRIGERATOR 30 MINUTES PRIOR TO INJECTION 6 mL 3 3 06/14/20 24 Active Pen [place] 32G X 4 MM Use as directed. 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 As needed.. 4 Active oxyCODONE HCl 5 MG Oral Tablet (Oxy IR)Indications:Mult iple myeloma in relapse ([facility]) Take 1 Tablet by mouth every [...] morning. 180 Capsule 1 4 Active Nystatin 309256 UNIT/ML Mouth/Throat SuspensionIndicatio ns:Multiple myeloma in relapse ([facility]) Swish and swallow 5 mL in the morning and 5 mL at noon and 5 mL in the evening and 5 mL before bedtime. 60 mL 1 4 Active Magnesium Chloride 64 MG Oral Tablet Delayed Release (Mag64)Indications: Multiple myeloma in relapse ([facility]) Take 1 Tablet by mouth in [...] the morning. 90 Tablet 1 4 Active documented as of this encounter (statuses as of 03/16/2024) Active Problems Problem Noted Date Diagnosed Date [...] as of this encounter (statuses as of 03/16/2024) Resolved Problems Problem Noted Date Diagnosed Date [...] as of this encounter (statuses as of 03/16/2024) Immunizations Name Administration Dates Next Due COVID-19, [...] as of this encounter Progress Notes * Thierno Patel PA-C - 03/16/2024 1:59 PM EDT Patient was scheduled for a telephone visit today. I attempted to call his home phone number x2, there was no answer. Cell number went directly to voice mail. Today's visit will need to be rescheduled. documented in this encounter Plan of Treatment Upcoming Encounters Date Type Department Care Team (Late st Contact Info) Description 03/19/2024 9:00 AM EDT Scheduled Telephone [facility] [address] [place] [address] Coordinator, [facility] [place] [address] 03/19/2024 3:00 PM EDT Office Visit Sleep Disorders Ctr [facility] [address] [facility] [place] [phone] Tona Mondragon DO [address] [facility] [place] [address] 04/06/2024 9:30 AM EDT Office Visit Cardiology, [facility] [address] [facility] [place] [address] Beth Salter CRNP [address] [place] [address] [place] [address] 04/16/2024 2:30 PM EDT Telemedicine H[facility]ology [facility] Tyree UGARTE [address] [facility] [place] [address] Rosalio Amaral MD [address] [facility] [place] [address] 04/18/2024 10:00 AM EDT [facility] [address] [address] Sulma Seth, RN 132 [place] [address] 04/19/2024 9:30 AM EDT Office Visit Cardiology [address] [place] [address] Tim Ruiz PA-C [address] [place] [address] 05/15/2024 2:00 PM EDT [facility]medicine [facility] [address] [place] [address] Thierno Patel PA-C [address] [place] [address] 06/20/2024 3:00 PM EDT Telemedicine [facility] [address] [place] [address] Rosalio Amaral MD [address] [place] [address] 10/30/2024 1:45 PM EST Office Visit Urology, [facility] [address] [place] [address] Devyn Paniagua MD [address] [place] [address] 01/01/2025 10:20 AM EDT Office Visit Otolaryngology [facility] [address] [place] [address] Haley Aguero PA-C 132 [place] [address] Health Maintenance Due Date Last Done Comments [...] 04/2023, 01/31/2023, Additional history exists GFR 09/14/2024 03/14/2024, 07/0 11/2023, 03/09/2024, Additional history exists Diabetic Eye Exam 01/18/2025 01/19/2024, , 07/11/2023, Additional history exists Albumin/Creatinine Ratio 01/26/2025 024, 12/30/2023, 09/08/2023, Additional history exists CKD HGB USE SMARTSET 01605 02/27/202502/27, 02/20/2024, 01/27/2024, Additional history exists CKD PHOS USE SMARTSET 24295 03/09/202502/11, 03/08/2024, 03/07/2024, Additional history exists DTaP,Tdap,and [...] this encounter Medical Devices Implanted Type Area Commissions Analyst Device Identifier Shelf Expiration Date Model / Serial / Lot Port Power Mri W/8fr Cath - [id number] Implanted:Qty: 1 on 09/26/2020 by Simone Michelle MD at [facility] Right: Chest CR BARD : PERIPHERAL VASCULAR 10/12/2021 [id number] / / [id number] Description:right IJ Lens Intraoc 19.0 - [id number] - [id number] Implanted:Qty: 1 on 02/03/2021 by Chris Sexton MD at OR [facility] Right: Eye [employer]OM[employer] 09/11/2025 [id number] / [id number] / Lens Intraoc 19.0 - [id number] - [id number] Implanted:Qty: 1 on 02/24/2021 by Chris Sexton MD at OR [facility] Left: Eye BAUSCH [employer] LOMB 10/12/2025 [id number] / [id number] / [id number] System Urolift - [id number] Implanted:Qty: 2 on 03/17/2023 by Devyn Paniagua MD at OR [facility] N/A: Urethra [employer] 11/18/2023 CF032-0 / / [id number] System Urolift - [id number] Implanted:Qty: 3 on 03/17/2023 by Devyn Paniagua MD at OR [facility] N/A: Urethra [employer] 11/03/2023 SE158-8 / / [id number] documented as of this encounter Visit Diagnoses [...] and were consensually agreed upon. Care Teams Stock Replenisher Relationship Specialty Start Date End Date Jaime Garcia MD [address] [place] [address] [place] [phone] PCP - General Family Medicine 10/15/20 documented as of this encounter
--- OUTSIDE RECORDS SUMMARY | 2024-05-13 06:04 | External Medical Summary | Summary of Care ---
Author Name Unknown Organization [facility] Address [address] [place] [address] Phone [phone] Care Team Providers Care Funder Name Role Phone Jaime Garcia MD Primary Care Provide r Reason for Visit * Reason Onset Date Comments [facility]: Maintenance 03/19/2024 Encounter Details Date Type Department Care Team (Late st Contact Info) Description 03/19/2024 9:00 AM EDT Scheduled Telephone [facility], [facility] [address] [facility] [place] [address] Coordinator, [facility] [address] [facility] [place] [address] Allergies Active Allergy Reactions Criticality Noted Date Comments Atorvastatin Muscle pain High 03/30/2019 Ezetimibe Muscle pain High 01/25/2020 documented as of this encounter (statuses as of 03/19/2024) Medications Medication Sig Dispensed Refills Start Date [...] 6 mL 3 06/15/2023 4 Active Pen [place] 32G X 4 MM Use as directed. [...] morning. 180 Capsule 1 01/02/2024 Active Nystatin 505860 UNIT/ML Mouth/Throat SuspensionIndicatio ns:Multiple myeloma in relapse ([facility]) Swish and swallow 5 mL in the morning and 5 mL at noon and 5 mL in the evening and 5 mL before bedtime. 60 mL 1 01/02/2024 Active Magnesium Chloride 64 MG Oral Tablet Delayed Release (Mag64)Indications: Multiple myeloma in relapse ([facility]) Take 1 Tablet by mouth in the [...] as of this encounter (statuses as of 03/19/2024) Active Problems Problem Noted Date Diagnosed Date [...] as of this encounter (statuses as of 03/19/2024) Resolved Problems Problem Noted Date Diagnosed Date [...] as of this encounter (statuses as of 03/19/2024) Immunizations Name Administration Dates Next Due COVID-19, [...] encounter Miscellaneous Notes * Telephone Encounter - Rufina Lucia RN - 03/19/2024 11:06 AM EDT [facility] Telephonic Nurse Follow-Up Call [facility] Subprogram: Focused Care Management (3-9 months) Follow Up Call Type: Routine follow up call / Status Check Acute issue requiring follow-up call: Other: weekly update from patient while in [facility] getting stem cell transplant. Objective: 02/01/2024 12:40 PM 01/27/2024 10:10 AM 01/19/2024 3:10 PM 01/16/2024 1:05 PM 01/12/2024 11:15 AM VITALS ACROSS ENCOUNTERS BP 98/62 118/82 128/82 133/87 120/82 Pulse 88 89 92 90 80 Weight 64.7 kg 65.1 kg 65.2 kg 61.1 kg BMI 21.06 kg/m2 21.19 kg/m2 21.24 kg/m2 19.91 kg/m2 Remote Patient Monitoring: NONE Oxygen Needs: NO supplemental oxygen needs identified DME Needs: NO DME needs identified Medications: No medication or dose adjustments made during acute episode Subjective: Condition Status: Improvement in symptoms but not at baseline Current Concerns: Spoke with patient who reports that he is doing better. They were able to adjust his meds and get his bp stabilized. He was discharged from the hospital and on 03/14/24 he was cleared to come back home. Pt denies fever/chills. Feels very tired and gets out of breath easily when doing anything. Currently outside walking and is a little winded. Does not have pulse ox right now. Reports that he recovers with rest. We discussed med changes. He did sent myG message to pcp with the changes which were added to his list. Confirmed pt is no longer taking warfarin and was changed to Eliquis. States he wasstarted on fludrocortisone for adrenal insufficiency that was causing his blood pressure to drop. Pt will share information from his [facility] pt portal when RNCM visits later this week for JERALD visit. Reinforced to call [facility] with any concerns/questions prior to that appt. Pt will go to lab on 03/21 toget his ordered labs completed. Disposition: RNCM visit scheduled Future Visits Scheduled: Future Appointments-next 60 days Date/Time Provider Specialty Dept Phone 03/16/2024 2:00 PM Thierno Patel PA-C Hematology Oncology [phone] 03/19/2024 3:00 PM (Arrive by 2:45 PM) Tona Mondragon DO Sleep Disorders [phone] 04/06/2024 9:30 AM (Arrive by 9:15 AM) Beth Salter CRNP Cardiology [phone] 04/16/2024 2:30 PM Rosalio Amaral MD Hematology Oncology [phone] 04/18/2024 10:00 AM Sulma Seth RN [facility] [phone] 04/19/2024 9:30 AM (Arrive by 9:15 AM) Tim Ruiz PA-C Cardiology [phone] 05/15/2024 2:00 PM Thierno Patel PA-C Hematology Oncology [phone] 06/20/2024 3:00 PM Rosalio Amaral MD Hematology Oncology [phone] 10/30/2024 1:45 PM Devyn Paniagua MD Urology [phone] 01/01/2025 10:20 AM (Arrive by 10:05 AM) Haley Aguero PA-C Otolaryngology [phone] Rufina Lucia, RN documented in this encounter Plan of Treatment Upcoming Encounters Date Type Department Care Team (Late st Contact Info) Description 03/22/2024 2:00 PM EDT [facility] [address] [place] [address] Sulma Seth, RN [address] [place] [address] 04/06/2024 9:30 AM EDT Office Visit Cardiology, [facility] [address] [place] [address] Beth Salter CRNP [address] [place] [address] [place] [address] 04/16/2024 2:30 PM EDT Telemedicine Hematology [facility] Tyree UGARTE [address] [facility] [place] [address] Rosalio Amaral MD [address] [facility] [place] [address] 04/18/2024 10:00 AM EDT [facility] Visit [facility] [address] [place] [address] Sulma Seth, BOBBY [address] [place] [address] 04/19/2024 9:30 AM EDT Office Visit Cardiology [address] [place] [address] Tim Ruiz PA-C [address] [place] [address] 05/11/2024 11:40 AM EDT Office Visit Sleep Disorders Ctr [facility] [address] [place] [phone] Tona Mondragon DO [address] [place] [address] 05/15/2024 2:00 PM EDT Telemedicine [facility] [address] [place] [address] Thierno Patel, PAPageC [address] [place] [address] 06/20/2024 3:00 PM EDT Telemedicine Hematology [facility] Tyree Jordan [address] [place] [address] Rosalio Amaral MD [address] [place] [address] 10/30/2024 1:45 PM EST Office Visit Urology, [facility] [address] [place] [address] Devyn Paniagua MD [address] [place] [address] 01/01/2025 10:20 AM EDT Office Visit Otolaryngology [facility] [address] [place] [address] Haley Aguero PA-C [address] [place] [address] Health Maintenance Due Date Last Done Comments [...] PCV20) 05/22/2024 05/13/2020, 05/22/2019 TSH 07/25/2024 07/25/2023, 1 04/2023, 01/31/2023, Additional history exists GFR 09/14/2024 03/14/2024, 07/0 11/2023, 03/09/2024, Additional history exists Diabetic Eye Exam 01/18/2025 01/19/2024, , 07/11/2023, Additional history exists Albumin/Creatinine Ratio 01/26/2025 024, 12/30/2023, 09/08/2023, Additional history exists CKD HGB USE SMARTSET 28897 02/27/202502/27, 02/20/2024, 01/27/2024, Additional history exists CKD PHOS USE SMARTSET 69725 03/09/202502/11, 03/08/2024, 03/07/2024, Additional history exists DTaP,Tdap,and [...] encounter Medical Devices Implanted Type Area Family Support Specialist Device Identifier Shelf Expiration Date Model / Serial / Lot Port Power Mri W/8fr Cath - [id number] Implanted:Qty: 1 on 09/26/2020 by Simone Michelle MD at OR [facility] Right: Chest CR BARD : PERIPHERAL VASCULAR 10/12/2021 [id number] / / [id number] Description:right IJ Lens Intraoc 19.0 - [id number] - [id number] Implanted:Qty: 1 on 02/03/2021 by Chris Sexton MD at OR [facility] Right: Eye [employer]CH [employer]OM[employer] 09/11/2025 [id number] / [id number] / Lens Intraoc 19.0 - [id number] - [id number] Implanted:Qty: 1 on 02/24/2021 by Chris Sexton MD at OR [facility] Left: Eye BAUSCH [employer] LOMB 10/12/2025 [id number] / [id number] / [id number] System Urolift - [id number] Implanted:Qty: 2 on 03/17/2023 by Devyn Paniagua MD at OR [facility] N/A: Urethra [employer] 11/18/2023 XE924-6 / / [id number] System Urolift - [id number] Implanted:Qty: 3 on 03/17/2023 by Devyn Paniagua MD at OR [facility] N/A: Urethra [employer] 11/03/2023 LC360-6 / / [id number] documented as of this encounter Additional Health [...] and were consensually agreed upon. Care Teams Funder Relationship Specialty Start Date End Date Jaime Garcia MD [address] [place] [address] [place] [phone] PCP - General Family Medicine 10/15/20 documented as of this encounter
--- OUTSIDE RECORDS SUMMARY | 2024-05-13 06:04 | External Medical Summary | Summary of Care ---
Author Name Unknown Organization [facility] Address [address] [place] [address] Phone [phone] Care Team Providers Care Citrix Architect Name Role Phone Jaime Garcia MD Primary Care Provide r Encounter Details Date Type Department Care Team (Late st Contact Info) Description 03/19/2024 Telephone Home Infusion, [address] [address] Rosalio Amaral MD [address] [place] [phone] Allergies Active Allergy Reactions Criticality Noted Date [...] 6 mL 3 06/15/2023 4 Active Pen [place] 32G X 4 MM Use as directed. [...] morning. 180 Capsule 1 01/02/2024 Active Nystatin 156041 UNIT/ML Mouth/Throat SuspensionIndicatio ns:Multiple myeloma in relapse [...] Telephone Encounter - Jazmín Rojas LPN - 03/19/2024 3:12 PM EDT MAKEDA is following up on the eligibility status for his Priv[employer]. If we are to continue with servicewe will need orders sent as well. Please advise. Thank you. documented in this encounter Plan of Treatment Upcoming Encounters Date Type Department Care Team (Late st Contact Info) Description 03/22/2024 2:00 PM EDT Home Visit [facility] [address] [place] [address] Sulma Seth, BOBBY [address] [place] [address] 04/06/2024 9:30 AM EDT Office Visit Cardiology, [facility] [address] [place] [address] Beth Salter CRNP [address] [place] [address] [place] [phone] 04/16/2024 2:30 PM EDT Telemedicine Hematology [facility]cology [facility] [place] [address] Rosalio Amaral MD [address] [place] [address] 04/18/2024 10:00 AM EDT [facility] Visit [facility] [place] [address] [place] [address] Sulma Seth, BOBBY [address] [place] [address] 04/19/2024 9:30 AM EDT Office Visit Cardiology [address] [place] [address] Tim Ruiz PA-C [address] [place] [address] 05/11/2024 11:40 AM EDT Office Visit [facility] [place] [phone] Tona Mondragon DO [address] [place] [address] 05/15/2024 2:00 PM EDT Telemedicine Hematology [facility] Tyree Jordan [address] [place] [address] Thierno Patel PA-C [address] [place] [address] 06/20/2024 3:00 PM EDT Telemedicine H[facility]ology [facility] Tyree UGARTE [address] [place] [address] Rosalio Amaral MD [address] [place] [address] 10/30/2024 1:45 PM EST Office Visit Urology, [facility] [address] [place] [address] Devyn Paniagua MD [address] [place] [address] 01/01/2025 10:20 AM EDT Office Visit Otolaryngology [facility] [address] [place] [address] Haley Aguero PA-C [address] [place] [address] Health Maintenance Due Date Last Done Comments [...] PCV20) 05/22/2024 05/13/2020, 05/22/2019 TSH 07/25/2024 07/25/2023, 071 04/2023, 01/31/2023, Additional history exists GFR 09/14/2024 03/14/2024, 07/0 11/2023, 03/09/2024, Additional history exists Diabetic Eye Exam 01/18/2025 01/19/2024, , 07/11/2023, Additional history exists Albumin/Creatinine Ratio 01/26/20252 024, 12/30/2023, 09/08/2023, Additional history exists CKD HGB USE SMARTSET 66135 02/27/202502/27, 02/20/2024, 01/27/2024, Additional history exists CKD PHOS USE SMARTSET 68793 03/09/202502/11, 03/08/2024, 03/07/2024, Additional history exists DTaP,Tdap,and [...] this encounter Medical Devices Implanted Type Area Community Health Agent Device Identifier Shelf Expiration Date Model / Serial / Lot Port Power Mri W/8fr Cath - [id number] Implanted:Qty: 1 on 09/26/2020 by Simone Michelle MD at OR [facility] Right: Chest CR BARD : PERIPHERAL VASCULAR 10/12/2021 [id number] / / [id number] Description:right IJ Lens Intraoc 19.0 - [id number] - [id number] Implanted:Qty: 1 on 02/03/2021 by Chris Sexton MD at OR [facility] Right: Eye BAUSCH [employer] LOMB 09/11/2025 [id number] / [id number] / Lens Intraoc 19.0 - [id number] - [id number] Implanted:Qty: 1 on 02/24/2021 by Chris Sexton MD at [facility] Left: Eye BAUSCH [employer] LOMB 10/12/2025 [id number] / [id number] System Urolift - [id number] Implanted:Qty: 2 on 03/17/2023 by [facility]yn [facility] N/A: Urethra [employer] 11/18/2023 JY963-2 / / [id number] System Urolift - [id number] Implanted:Qty: 3 on 03/17/2023 by Devyn Paniagua MD [facility] N/A: Urethra [employer] 11/03/2023 WF468-6 / / [id number] documented as of this encounter Additional Health [...] and were consensually agreed upon. Care Teams Citrix Architect Relationship Specialty Start Date End Date Jaime Garcia MD [address] [place] [address] [place] [phone] PCP - General Family Medicine 10/15/20 documented as of this encounter
--- OUTSIDE RECORDS SUMMARY | 2024-05-13 06:04 | External Medical Summary | Summary of Care ---
Author Name Unknown Organization [facility] Address [address] [place] [address] Phone [phone] Care Team Providers Care Hogshead Dumper Name Role Phone Jaime Garcia MD Primary Care Provide r Encounter Details Date Type Department Care Team (Late st Contact Info) Description 03/02/2024 Population Health External Data Unspecified Department Allergies Active Allergy Reactions Criticality Noted Date Comments Atorvastatin Muscle pain High 03/30/2019 Ezetimibe Muscle pain High 01/25/2020 documented as of this encounter (statuses as of 03/02/2024) Medications Medication Sig Dispensed Refills Start Date [...] mL 3 3 06/14/20 24 Active Pen [place] 32G X 4 MM Use as directed. 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 180 Capsule 1 4 Active Nystatin 455316 UNIT/ML Mouth/Throat SuspensionIndicatio ns:Multiple myeloma in relapse ([facility]) Swish and swallow 5 mL in the morning and 5 mL at noon and 5 mL in the evening and 5 mL before bedtime. 60 mL 1 4 Active Magnesium Chloride 64 MG Oral Tablet Delayed Release (Mag64)Indications: Multiple myeloma in relapse ([facility]) Take 1 Tablet by mouth in the [...] as of this encounter (statuses as of 03/02/2024) Active Problems Problem Noted Date Diagnosed Date [...] as of this encounter (statuses as of 03/02/2024) Resolved Problems Problem Noted Date Diagnosed Date [...] as of this encounter (statuses as of 03/02/2024) Immunizations Name Administration Dates Next Due COVID-19, [...] Description 03/16/2024 8:30 AM EDT Anticoagulation Pharmacy, [address] [place] [address] [place] [address] 03/16/2024 2:00 PM EDT Telemedicine H[facility]ology [facility] [place] [address] [place] [address] Thierno Patel PA-C [address] [place] [address] 04/06/2024 9:30 AM EDT Office Visit Cardiology, [facility] [address] [place] [address] Beth Salter CRNP [address] [place] [address] [place] [address] 04/16/2024 2:30 PM EDT Telemedicine Hematology Oncology [facility] Ty[facility] U[place] [address] [place] [address] Rosalio Amaral MD [address] [place] [address] 04/18/2024 10:00 AM EDT Home Visit [facility] at [place], [facility] [address] [place] [address] Sulma Seth, BOBBY [address] [place] [address] 04/19/2024 9:30 AM EDT Office Visit Cardiology [address] [place] [address] Tim Ruiz PA-C [address] [place] [address] 05/15/2024 2:00 PM EDT Telemedicine Hematology [facility] Tyree [facility] [address] [place] [address] Thierno Patel PA-C [address] [place] [address] 06/20/2024 3:00 PM EDT Telemedicine Hematology [facility]ree UG[facility] [address] [facility] [place] [address] Rosalio Amaral MD [address] [place] [address] 10/30/2024 1:45 PM EST Office Visit Urology, [facility] [address] [facility] [place] [address] Devyn Paniagua MD [address] [place] [address] [place] [address] 01/01/2025 10:20 AM EDT Office Visit Otolaryngology [facility] [address] [facility] [place] [address] Haley Aguero PA-C [address] [place] [address] Health Maintenance Due Date Last Done Comments Cologuard 2015 Fecal Occult Blood Test 2015 Sigmoidoscopy 2015 Depression Screening 01/05/2022 01/05/2021 Diabetic Foot Exam 12/14/2022 12/14/2021, 0 10/15/2020, 06/25/2019 COVID-19 Vaccine (2022- season) 2023 10/06/2021, 06/24/2021, 06/23/2021 HbA1c 01/05/2024 07/06/2023, 11/2022, 03/29/2023, Additional history exists Pneumococcal Vaccine: Pediatrics (0 to 5 Years) and At-Risk Patients (6 to 64 Years) (3 of 3 - PPSV23 or PCV20) 05/22/2024 05/13/2020, 05/22/2019 TSH 07/25/2024 07/25/2023, 03/12, 01/31/2023, Additional history exists GFR 09/01/2024 03/02/2024, 02/10, 02/29/2024, Additional history exists Diabetic Eye Exam 01/18/2025 01/19/2024, , 07/11/2023, Additional history exists Albumin/Creatinine Ratio 01/26/2025 024, 12/30/2023, 09/08/2023, Additional history exists CKD HGB USE SMARTSET 25377 02/27/202502/27, 02/20/2024, 01/27/2024, Additional history exists CKD PHOS USE SMARTSET 04471 03/02/202502/11, 03/01/2024, 02/29/2024, Additional history exists DTaP,Tdap,and Td Vaccines (2 [...] this encounter Medical Devices Implanted Type Area Echo Tech Device Identifier Shelf Expiration Date Model / Serial / Lot Port Power Mri W/8fr Cath - [id number] Implanted:Qty: 1 on 09/26/2020 by Simone Michelle MD at OR [facility] Right: Chest CR BARD : PERIPHERAL VASCULAR 10/12/2021 [id number] / / [id number] Description:right IJ Lens Intraoc 19.0 - [id number] - [id number] Implanted:Qty: 1 on 02/03/2021 by Chris Sexton MD at OR [facility] Right: Eye BAUSCH & LOMB 09/11/2025 [id number] / [id number] / Lens Intraoc 19.0 - [id number] - [id number] Implanted:Qty: 1 on 02/24/2021 by Chris Sexton MD at OR [facility] Left: Eye BAUSCH & LOMB 10/12/2025 [id number] / [id number] / [id number] System Urolift - [id number] Implanted:Qty: 2 on 03/17/2023 by Devyn Paniagua MD at OR [facility] N/A: Urethra [employer] 11/18/2023 [id number] / / [id number] System Urolift - [id number] Implanted:Qty: 3 on 03/17/2023 by Devyn Paniagua MD at OR [facility] N/A: Urethra [employer] 11/03/2023 [id number] / / [id number] documented as of this encounter Additional Health [...] and were consensually agreed upon. Care Teams Hogshead Dumper Relationship Specialty Start Date End Date Jaime Garcia MD [address] [place] [address] [place] [address] PCP - General Family Medicine 10/15/20 documented as of this encounter
--- OUTSIDE RECORDS SUMMARY | 2024-05-13 06:04 | External Medical Summary | Summary of Care ---
Author Name Unknown Organization [facility] Address [address] [place] [address] Phone [phone] Care Team Providers Care Soap Inspector Name Role Phone Jaime Garcia MD Primary Care Provide r Reason for Visit * Reason Comments Medication Refill Encounter Details Date Type Department Care Team (Late st Contact Info) Description 03/21/2024 Refill Hematology [facility]cology [facility] Tyree UGARTE [address] [facility] [place] [address] Rosalio Amaral MD [address] [facility] [place] [address] Multiple myeloma in relapse (HCC) Allergies Active [...] (Oxy IR)Indications:Mult iple myeloma in relapse ([facility]) Take 1 Tablet by mouth every [...] morning. 180 Capsule 1 01/02/2024 Active Nystatin 179672 UNIT/ML Mouth/Throat SuspensionIndicatio ns:Multiple myeloma in relapse ([facility]) Swish and swallow 5 mL in the morning and 5 mL at noon and 5 mL in the evening and 5 mL before bedtime. 60 mL 1 01/02/2024 Active Magnesium Chloride 64 MG Oral Tablet Delayed Release (Mag64)Indications: Multiple myeloma in relapse ([facility]) Take 1 Tablet by mouth in [...] encounter Miscellaneous Notes * Telephone Encounter - Caterina Krause MD - 03/21/2024 1:53 PM EDTRefused Prescriptions: Disp Refills oxyCODONE HCl 5 MG Oral Tablet (Oxy IR) 30 Tab*0 Sig: Take 1 Tablet by mouth every 4 hours as needed for breakthrough pain.Refused By: MARIO ALBERTO KRAUSEeason for Refusal: Managed by another physician documented in this encounter Plan of Treatment Upcoming Encounters Date Type Department Care Team (Late st Contact Info) Description 03/22/2024 2:00 PM EDT [facility] [address] [place] [address] Sulma Seth, RN 132 [place] [address] 03/28/2024 6:10 PM EDT [facility], [address] [place] [address] [place] [address] 04/06/2024 9:30 AM EDT Office Visit Cardiology, [facility] [address] [place] [address] Beth Salter CRNP [address] [place], [place] [address] [address] 04/16/2024 2:30 PM EDT Telemedicine Hematology [facility]cology [facility] Tyree UGARTE [address] [facility] [place] [address] Rosalio Amaral MD [address] [facility] [place] [address] 04/18/2024 10:00 AM EDT [facility] Visit [facility], [facility] [address] [place] [address] Sulma Seth RN [address] [place] [address] 04/19/2024 9:30 AM EDT Office Visit Cardiology [address] [place] [address] Tim Ruiz PA-C [address] [place] [address] 05/11/2024 11:40 AM EDT Office Visit Sleep Disorders Ctr [facility] [address] [place] [phone] Tona Mondragon DO [address] [place] [address] 05/15/2024 2:00 PM EDT Telemedicine Hematology [facility] Tyree UG[facility]TE [address] [place] [address] Thierno Patel PA-C [address] [place] [address] 06/20/2024 3:00 PM EDT Telemedicine Hematology Oncology [facility] [address] [place] [address] Rosalio Amaral MD [address] [place] [address] 10/30/2024 1:45 PM EST Office Visit Urology, [facility] 132 [facility] [place] [address] Devyn Paniagua MD [address] [place] [address] 01/01/2025 10:20 AM EDT Office Visit Otolaryngology [facility] 132 [facility] [place] [address] Haley Aguero PA-C 132 [facility] [place] [address] Health Maintenance Due Date Last Done Comments [...] Additional history exists CKD PHOS USE SMARTSET 59115 03/09/202502/11, 03/08/2024, 03/07/2024, Additional history exists CKD HGB USE SMARTSET 19651 03/19/202503/19, 02/28/2024, 02/20/2024, Additional history exists DTaP,Tdap,and [...] this encounter Medical Devices Implanted Type Area Cnc Manufacturing Engineer Device Identifier Shelf Expiration Date Model / Serial / Lot Port Power Mri W/8fr Cath - [id number] Implanted:Qty: 1 on 09/26/2020 by Simone Michelle MD at OR [facility] Right: Chest CR BARD : PERIPHERAL VASCULAR 10/12/2021 [id number] / / [id number] Description:right IJ Lens Intraoc 19.0 - [id number] - [id number] Implanted:Qty: 1 on 02/03/2021 by Chris Sexton MD at OR [facility] Right: Eye BAUSCH & LOMB 09/11/2025 [id number] / [id number] / Lens Intraoc 19.0 - [id number] - [id number] Implanted:Qty: 1 on 02/24/2021 by Chris Sexton MD at OR [facility] Left: Eye BAUSCH & LOMB 10/12/2025 [id number] / [id number] System Urolift - [id number] Implanted:Qty: 2 on 03/17/2023 by Devyn Paniagua MD at OR [facility] N/A: Urethra [employer] 11/18/2023 HS572-3 / / [id number] System Urolift - [id number] Implanted:Qty: 3 on 03/17/2023 by Devyn Paniagua MD at OR [facility] N/A: Urethra [employer] 11/03/2023 CX651-5 / / [id number] documented as of this encounter Visit Diagnoses [...] and were consensually agreed upon. Care Teams Soap Inspector Relationship Specialty Start Date End Date Jaime Garcia MD [address] [place] [address] [place] [phone] PCP - General Family Medicine 10/15/20 documented as of this encounter
--- OUTSIDE RECORDS SUMMARY | 2024-05-13 06:04 | External Medical Summary | Summary of Care ---
Author Name Unknown Organization [facility] Address [address] [place] [address] Phone [phone] Care Team Providers Care Bridge Expert Name Role Phone Jaime Garcia MD Primary Care Provide r Reason for Visit * Reason Onset Date Comments [facility]: Maintenance 03/12/2024 Encounter Details Date Type Department Care Team (Late st Contact Info) Description 03/12/2024 9:30 AM EDT Scheduled Telephone [facility], [facility] 132 [facility] [place] [address] Coordinator, [facility] 132 [facility] [place] [address] Allergies Active Allergy Reactions Criticality Noted Date [...] 3 05/20/20 24 Active Cholecalciferol 50 MCG (1999 [place]) Oral [...] mL 3 3 06/14/20 24 Active Pen [place] 32G X 4 MM Use as directed. 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 180 Capsule 1 4 Active Nystatin 603331 UNIT/ML Mouth/Throat SuspensionIndicatio ns:Multiple myeloma in relapse [...] encounter Miscellaneous Notes * Telephone Encounter - Khari Rufinaflorencio Brownlee RN - 03/12/2024 2:22 PM EDT [facility] Telephonic Nurse Follow-Up Call [facility] Subprogram: Focused Care Management (3-9 months) Follow Up Call Type: Routine follow up call / Status Check Acute issue requiring follow-up call: Other: weekly update from patient while in [facility] getting stem cell transplant. Objective: 02/01/2024 12:40 [...] He was discharged from the hospital and is staying with his cousin in [facility] currently. Has a follow up appt this coming Tuesday, 03/14 and will then hopefully be cleared to come back home. He will also find out then how often he has to go back to [facility]. Thinks that some of the visits can be telemed. Will plan to follow up in one week to confirm pt is back home and schedule RNCMvisit at that time. Pt agreeable. Disposition: Routed to [facility] and/or [facility] Care Team for further advice Future Visits Scheduled: Future Appointments-next 60 days Date/Time Provider Specialty Dept Phone 03/16/2024 2:00 PM Thierno Patel PA-C Hematology Oncology [phone] 03/19/2024 3:00 PM (Arrive by 2:45 PM) Tona Mondragon, DO Sleep Disorders [phone] 04/06/2024 9:30 AM (Arrive by 9:15 AM) Beth Salter CRNP Cardiology [phone] 04/16/2024 2:30 PM Rosalio Amaral MD Hematology Oncology [phone] 04/18/2024 10:00 AM Sulma Seth, BOBBY [facility] [phone] 04/19/2024 9:30 AM (Arrive by 9:15 AM) Tim Ruiz PA-C Cardiology [phone] 05/15/2024 2:00 PM Thierno Patel PA-C Hematology Oncology [phone] 06/20/2024 3:00 PM Rosalio Amaral MD Hematology Oncology [phone] 10/30/2024 1:45 PM Devyn Paniagua MD Urology [phone] 01/01/2025 10:20 AM (Arrive by 10:05 AM) Haley Aguero PA-C Otolaryngology [phone] Rufina Lucia, BOBBY documented in this encounter Plan of Treatment Upcoming Encounters Date Type Department Care Team (Late st Contact Info) Description 03/16/2024 2:00 PM EDT Telemedicine Hematology [facility]cology [facility] Tyree UGARTE [address] [facility] [place] [address] Thierno Patel PA-C [address] [place] [address] 03/19/2024 9:00 AM EDT Scheduled Telephone [facility], [facility] 132 [facility] [place] [address] Coordinator, [facility] 132 [facility] [place] [address] 03/19/2024 3:00 PM EDT Office Visit Sleep Disorders Ctr [facility] [address] [place] [id number] Tona Mondragon DO [address] [place] [address] 04/06/2024 9:30 AM EDT Office Visit Cardiology, [facility] [place] [address] [facility] [address] 04/16/2024 2:30 PM EDT Telemedicine Hematology Oncology [facility] Tyree Jordan [address] [place] [address] Rosalio Amaral MD [address] [place] [address] 04/18/2024 10:00 AM EDT [facility] Visit [facility], [facility] [address] [place] [address] Sulma Seth, RN [address] [place] [address] 04/19/2024 9:30 AM EDT Office Visit Cardiology [address] [place] [address] Tim Ruiz PA-C [address] [place] [address] 05/15/2024 2:00 PM EDT Telemedicine Hematology [facility]cology [facility] Tyree Jordan [address] [place] [address] Thierno Patel PA-C [address] [place] [address] 06/20/2024 3:00 PM EDT Telemedicine Hematology Oncology [facility] Tyree UGARTE [address] [facility] [place] [address] Rosalio Amaral MD [address] [facility] [place] [address] 10/30/2024 1:45 PM EST Office Visit Urology, [facility] [place] [address] Devyn Paniagua MD 27 [facility] [place] [address] 01/01/2025 10:20 AM EDT Office Visit Otolaryngology [facility] [address] [place] [address] Haley Aguero PA-C 132 [facility] [place] [address] Health Maintenance Due Date Last Done Comments [...] Additional history exists CKD HGB USE SMARTSET 61963 02/27/202502/27, 02/20/2024, 01/27/2024, Additional history exists CKD PHOS USE SMARTSET 42227 03/09/202502/11, 03/08/2024, 03/07/2024, Additional history exists DTaP,Tdap,and [...] this encounter Medical Devices Implanted Type Area Monotype Operator Device Identifier Shelf Expiration Date Model / Serial / Lot Port Power Mri W/8fr Cath - [id number] Implanted:Qty: 1 on 09/26/2020 by Simone Michelle MD at OR [facility] Right: Chest CR BARD : PERIPHERAL VASCULAR 10/12/2021 [id number] / / [id number] Description:right IJ Lens Intraoc 19.0 - [id number] - [id number] Implanted:Qty: 1 on 02/03/2021 by Chris Sexton MD at OR [facility] Right: Eye BAUSCH & LOMB 09/11/2025 [id number] / [id number] / Lens Intraoc 19.0 - [id number] - [id number] Implanted:Qty: 1 on 02/24/2021 by Chris Sexton MD at OR [facility] Left: Eye BAUSCH & LOMB 10/12/2025 [id number] / [id number] System Urolift - [id number] Implanted:Qty: 2 on 03/17/2023 by Devyn Paniagua MD at OR [facility] N/A: Urethra [employer] 11/18/2023 JS413-1 / / [id number] System Urolift - [id number] Implanted:Qty: 3 on 03/17/2023 by Devyn Paniagua MD at OR [facility] N/A: Urethra [employer] 11/03/2023 TM916-0 / / [id number] documented as of this encounter Additional Health [...] and were consensually agreed upon. Care Teams Bridge Expert Relationship Specialty Start Date End Date Jaime Garcia MD [address] [place] [address] [place] [phone] PCP - General Family Medicine 10/15/20 documented as of this encounter
--- OUTSIDE RECORDS SUMMARY | 2024-05-13 06:05 | External Medical Summary | Summary of Care ---
Author Name Unknown Organization [facility] Address [address] [place] [address] Phone [phone] Care Team Providers Care Aerospace Project Engineer Name Role Phone Jaime Garcia MD Primary Care Provide r Reason for Referral * Evaluate & Treat - Unlimited Visits (Within 10 days (routine)) - Authorized Specialty Diagnoses / Procedures Referred By Contact Referred To Contact Cardiac Electrophysiology / Cardiology Diagnoses Cardiac amyloidosis (HCC) NSVT (nonsustained ventricular tachycardia) (HCC) Beth Gibbs CRNP [address] [facility] [address] Referral ID Status Reason Start Date Expiration Date Visits Requested Visits Authorized [id number] Authorized Specialty Services Required 02/10/2024 999 999 Question Answer Referral Priority Within 10 days (routine) Where should this appointment be scheduled? [place] Comments 38 beat run of VT- cardiac Amyloid. Known to Dr. Dee Reason for Visit * Reason Onset Date Comments Test Results 02/10/2024 Encounter Details Date Type Department Care Team (Late st Contact Info) Description 02/10/2024 Telephone Cardiology, [facility] [address] [place] [address] Beth Gibbs CRNP [address] [place] [address] Test Results Allergies Active Allergy Reactions Criticality Noted Date Comments Atorvastatin Muscle pain High 03/30/2019 Ezetimibe Muscle pain High 01/25/2020 documented as of this encounter (statuses as of 02/24/2024) Medications Medication Sig Dispensed Refills Start Date End Date Status NSS 0.9 % SOLN with daratumumab 400 MG/20ML SOLN 16 mg/kgIndications:e very 4 weeks Administer intravenously every 14 days. Active CPAP every night at bedtime. Active oxygen IN GAS Use 2 L/min(Oxygen) as directed at bedtime. 1 Each 1 Active [employer] Ultra Blue In Vitro Strip (Glucose Blood)Indications: [...] mL 3 3 06/14/20 24 Active Pen Sylva 32G X 4 MM Use as directed. [...] Oral Tablet (Coumadin)Indicati ons:Atrial fibrillation, unspecified type ([facility]),Anticoagulat ion management encounter,group home current use of anticoagulant therapy,Paroxysmal atrial fibrillation ([facility]) Take up to one tablet by mouth daily as directed by anticoagulation clinic 90 Tablet 3 4 Active Dapsone 25 MG Oral TabletIndications: Multiple myeloma in relapse ([facility]) TAKE ONE TABLET BY MOUTH EVERY DAY 90 Tablet 1 4 10/27/19 25 Active Torsemide 10 MG Oral Tablet (Demadex)Indicatio ns:takes extra tab for swelling, wt gain Take 1 Tablet by mouth in the morning. As needed.. 4 Active oxyCODONE HCl 5 MG Oral Tablet (Oxy IR)Indications:Mul tiple myeloma in relapse ([facility]) Take 1 Tablet by mouth every [...] A1c goal of less than 7.0% ([facility]) Take 2 Tablets by mouth in the morning. 180 Tablet 1 4 Active DULoxetine HCl 20 MG Oral Capsule Delayed Release Particles (Cymbalta) Take 2 Capsules by mouth in the morning. 180 Capsule 1 4 Active Nystatin 581968 UNIT/ML Mouth/Throat SuspensionIndicati ons:Multiple myeloma in relapse ([facility]) Swish and swallow 5 mL in the morning and 5 mL at noon and 5 mL in the evening and 5 mL before bedtime. 60 mL 1 4 Active Magnesium Chloride 64 MG Oral Tablet Delayed Release (Mag64)Indications :Multiple myeloma in relapse ([facility]) Take 1 Tablet by mouth in the morning and 1 Tablet before bedtime. 180 Tablet 3 4 Active Folic Acid 400 MCG Oral TabletIndications: Low folate TAKE ONE TABLET BY MOUTH IN THE MORNING 90 Tablet 1 3 02/23/20 24 Discontinu ed(Refill) Prochlorperazine Maleate 10 MG Oral Tablet (Compazine)Indicat ions:Nausea and vomiting, unspecified vomiting type Take 1 Tablet by mouth every 6 hours as needed for Nausea. 40 Tablet 4 02/11/20 24 Discontinu ed(Refill) documented as of this encounter (statuses as of 02/24/2024) Active Problems Problem Noted Date Diagnosed Date [...] as of this encounter (statuses as of 02/24/2024) Resolved Problems Problem Noted Date Diagnosed Date [...] as of this encounter (statuses as of 02/24/2024) Immunizations Name Administration Dates Next Due COVID-19, [...] encounter Miscellaneous Notes * Telephone Encounter - Abraham Parekh LPN - 02/24/2024 1:02 PM EDT Patient admitted at [facility]. Will await changes from hospitalization. * Telephone Encounter - Abraham Parekh LPN - 02/22/2024 9:09 AM EDT Sent MyChart to follow up. * Telephone Encounter - Abraham Parekh LPN - 02/10/2024 4:24 PM EDT Sent patient a [employer]Co[employer] message to make aware. Awaiting reply to place orders. * Telephone Encounter - Beth Gibbs CRNP - 02/10/2024 12:41 PM EDT Please let the patient know that I reviewed a Zio monitor. Results were also discussed with Dr. Holbrook. Patient carries a history of multiple myeloma and cardiac AL amyloidosis. At his last appointment he had concerns regarding palpitations--he was previously on amiodarone dueto AFib as well as VT with it was discontinued due to leg weakness has not improved since stopping of this medication. A Zio monitor was repeated results as noted below. Zio monitor 01/19/2024 Primarily sinus rhythm with an average heart rate 92 beats per minute. Thirty episodes of VT with the longest lasting 19.4 seconds (38 beats)--patient was symptomatic with this extended episode as well as with the PACs/PVCs and SVT. No atrial fibrillation was seen. Medication options have been limited noting intolerance to beta-teto therapy, calcium channel blockers contraindicated due to heart failure. Recommendations: Obtain chest x-ray Repeat blood work including a TSH/free T4 and LFTs EP referral for possible restarting of amiodarone +/- need for AICD. Thanks, SU Womack PA-C documented in this encounter Plan of Treatment Upcoming Encounters Date Type Department Care Team (Late st Contact Info) Description 03/16/2024 8:30 AM EDT Anticoagulation Pharmacy, [address] [place] [address] [place] [address] 03/16/2024 2:00 PM EDT Telemedicine H[facility]ology [facility] Tyree UGARTE [address] [facility] [place] [address] Thierno Patel PA-C [address] [place] [address] 04/06/2024 9:30 AM EDT Office Visit Cardiology, [facility] [address] [facility] [place] [address] Beth Salter CRNP [address] [place], [place] [address], [place] [address] 04/16/2024 2:30 PM EDT Telemedicine H[facility]ology [facility] Tyree Jordan [address] [place] [address] Rosalio Amaral MD [address] [place] [address] 04/18/2024 10:00 AM EDT Home Visit [facility] [address] [place] [address] Sulma Seth RN [address] [place] [address] 04/19/2024 9:30 AM EDT Office Visit Cardiology [address] [place] [address] Tim Ruiz PA-C [address] [place] [address] 05/15/2024 2:00 PM EDT [facility] [address] [place] [address] Thierno Patel PA-C [address] [place] [address] 06/20/2024 3:00 PM EDT Telemedicine H[facility]ology [facility] Tyree UGARTE [address] [place] [address] Rosalio Amaral MD [address] [place] [address] 10/30/2024 1:45 PM EST Office Visit Urology, [facility] [address] [place] [address] Devyn Paniagua MD [address] [place] [address] 01/01/2025 10:20 AM EDT Office Visit Otolaryngology [facility] [address] [place] [address] Haley Aguero PA-C [address] [place] [address] Scheduled Orders Name Type Priority Associated Diagnoses Orde r Schedule MAGNESIUM Lab Routine Cardiac amyloidosis (HCC) NSVT (nonsustained ventricular tachycardia) (HCC) Expected: 02/10/2024, Expires: 02/09/2025 TSH WITH FREE T4 IF INDICATED Lab Routine Cardiac amyloidosis (HCC) NSVT (nonsustained ventricular tachycardia) (HCC) Expected: 02/10/2024, Expires: 02/09/2025 HEPATIC FUNCTION PANEL Lab Routine Cardiac amyloidosis (HCC) NSVT (nonsustained ventricular tachycardia) (HCC) Expected: 02/10/2024, Expires: 02/09/2025 XR CHEST 2 VIEWS Medical Imaging Routine Cardiac amyloidosis (HCC) NSVT (nonsustained ventricular tachycardia) (HCC) Ordered: 02/10/2024 Scheduled Referrals Name Type Priority Associated Diagnoses [...] Additional history exists CKD HGB USE SMARTSET 25737 01/26/202501/26, 01/27/2024, 01/16/2024, Additional history exists CKD PHOS USE SMARTSET 25610 02/12/2025 06/0 11/2023, 01/27/2024, 01/16/2024, Additional history [...] encounter Medical Devices Implanted Type Area Business Planner Device Identifier Shelf Expiration Date Model / Serial / Lot Port Power Mri W/8fr Cath - [id number] Implanted:Qty: 1 on 09/26/2020 by Simone Michelle MD at OR [facility] Right: Chest CR BARD : PERIPHERAL VASCULAR 10/12/2021 [id number] / / [id number] Description:right IJ Lens Intraoc 19.0 - [id number] - [id number] Implanted:Qty: 1 on 02/03/2021 by Chris Sexton MD at OR [facility] Right: Eye [employer]OM[employer] 09/11/2025 [id number] / [id number] / Lens Intraoc 19.0 - [id number] - [id number] Implanted:Qty: 1 on 02/24/2021 by Chris Sexton MD at OR [facility] Left: Eye BAUSCH [employer] LOMB 10/12/2025 [id number] / [id number] / [id number] System Urolift - [id number] Implanted:Qty: 2 on 03/17/2023 by Devyn Paniagua MD at OR [facility] N/A: Urethra [employer] 11/18/2023 [id number] / / [id number] System Urolift - [id number] Implanted:Qty: 3 on 03/17/2023 by Devyn Paniagua MD at OR [facility] N/A: Urethra [employer] 11/03/2023 [id number] / / [id number] documented as of this encounter Visit Diagnoses Diagnosis Cardiac amyloidosis (HCC)- Primary Other amyloidosis NSVT (nonsustained ventricular tachycardia) (HCC) Paroxysmal ventricular tachycardia documented in this encounter Additional Health Concerns [...] and were consensually agreed upon. Care Teams Aerospace Project Engineer Relationship Specialty Start Date End Date Jaime Garcia MD [address] [place] [address] [place] [address] PCP - General Family Medicine 10/15/20 documented as of this encounter
--- OUTSIDE RECORDS SUMMARY | 2024-05-13 06:05 | External Medical Summary | Summary of Care ---
Author Name Unknown Organization [facility] Address [address] [place] [address] Phone [phone] Care Team Providers Care Cargo Bracer Name Role Phone Jaime Day MD Primary Care Provide r Reason for Visit * Reason Comments Medication Refill Encounter Details Date Type Department Care Team (Late st Contact Info) Description 02/23/2024 Refill Family Medicine [address] [phone] Jaime Day MD [address] [place] [address] [place] [address] Low folate Allergies Active Allergy Reactions Criticality Noted Date Comments Atorvastatin Muscle pain High 03/30/2019 Ezetimibe Muscle pain High 01/25/2020 documented as of this encounter (statuses as of 02/23/2024) Medications Medication Sig Dispensed Refills Start Date [...] mL 3 3 06/14/20 24 Active Pen Banks 32G X 4 MM Use as directed. [...] disease, without long-term current use of insulin ([facility]) Use as directed to check blood [...] Oral Tablet (Coumadin)Indicati ons:Atrial fibrillation, unspecified type ([facility]),Anticoagulat ion management encounter,retirement current use of anticoagulant therapy,Paroxysmal atrial fibrillation (HCC) Take up to one tablet by mouth daily as directed by anticoagulation clinic 90 Tablet 3 4 Active Dapsone 25 MG Oral TabletIndications: Multiple myeloma in relapse ([facility]) TAKE ONE TABLET BY MOUTH EVERY [...] morning. 180 Capsule 1 4 Active Nystatin 118819 UNIT/ML Mouth/Throat SuspensionIndicati ons:Multiple myeloma in relapse ([facility]) Swish and swallow 5 mL in the morning and 5 mL at noon and 5 mL in the evening and 5 mL before bedtime. 60 mL 1 4 Active Magnesium Chloride 64 MG Oral Tablet Delayed Release (Mag64)Indications :Multiple myeloma in relapse ([facility]) Take 1 Tablet by mouth in [...] THE MORNING 90 Tablet 3 4 Active Folic Acid 400 MCG Oral TabletIndications: Low folate TAKE ONE TABLET BY MOUTH IN THE MORNING 90 Tablet 1 3 02/23/20 24 Discontinu ed(Refill) documented as of this encounter (statuses as of 02/23/2024) Active Problems Problem Noted Date Diagnosed Date [...] as of this encounter (statuses as of 02/23/2024) Resolved Problems Problem Noted Date Diagnosed Date [...] as of this encounter (statuses as of 02/23/2024) Immunizations Name Administration Dates Next Due COVID-19, [...] encounter Miscellaneous Notes * Telephone Encounter - Everardo Castle [facility] - 02/23/2024 12:07 PM EDTSigned Prescriptions: Disp Refills Folic Acid 400 MCG Oral Tablet 90 Tab*3 Sig: TAKE ONE TABLET BY MOUTH IN THE MORNINGAuthorizing Provider: Joseluis DAY User: EVERARDO CASTLE--- documented in this encounter Plan of Treatment Upcoming Encounters Date Type Department Care Team (Late st Contact Info) Description 03/16/2024 8:30 AM EDT Anticoagulation Pharmacy, [address] [place] [address] [place] [address] 03/16/2024 2:00 PM EDT Telemedicine Hematology [facility] Tyree UGARTE [address] [facility] [place] [address] Thierno Patel PA-C [address] [facility] [place] [address] 04/06/2024 9:30 AM EDT Office Visit Cardiology, [facility] [address] [facility] [place] [address] Beth Salter CRNP [address] [place] [address] 04/16/2024 2:30 PM EDT Telemedicine Hematology [facility] Tyree UGARTE [address] [place] [address] Rosalio Amaral MD [address] [place] [address] 04/18/2024 10:00 AM EDT [facility] [address] [facility] [place] [address] Sulma Seth, BOBBY 132 [facility] [place] [address] 04/19/2024 9:30 AM EDT Office Visit Cardiology [address] [place] [address] Tim Ruiz PA-C [address] [facility] [place] [address] 05/15/2024 2:00 PM EDT [facility] [address] [place] [address] Thierno Patel PA-C [address] [place] [address] 06/20/2024 3:00 PM EDT [facility] [address] [place] [address] Rosalio Amaral MD [address] [place] [address] 10/30/2024 1:45 PM EST Office Visit Urology, [facility] 132 [facility] [place] [address] Devyn Paniagua MD [address] [address] [place] [address] 01/01/2025 10:20 AM EDT Office Visit Otolaryngology [facility] [address] [place] [address] Haley Aguero PA-C [address] [place] [address] Health Maintenance Due Date Last Done Comments [...] Additional history exists CKD HGB USE SMARTSET 57484 01/26/202501/26, 01/27/2024, 01/16/2024, Additional history exists CKD PHOS USE SMARTSET 55723 02/12/2025 06/0 11/2023, 01/27/2024, 01/16/2024, Additional history [...] Medical Devices Implanted Type Area Head Of Measurement & Insights Device Identifier Shelf Expiration Date Model / Serial / Lot Port Power Mri W/8fr Cath - [id number] Implanted:Qty: 1 on 09/26/2020 by Simone Michelle MD at OR [facility] Right: Chest CR BARD : PERIPHERAL VASCULAR 10/12/2021 [id number] / / [id number] Description:right IJ Lens Intraoc 19.0 - [id number] - [id number] Implanted:Qty: 1 on 02/03/2021 by Chris Sexton MD at OR [facility] Right: Eye BAUSCH [employer] LOMB 09/11/2025 [id number] / [id number] / Lens Intraoc 19.0 - [id number] - [id number] Implanted:Qty: 1 on 02/24/2021 by Chris Sexton MD at OR [facility] Left: Eye BAUSCH & LOMB 10/12/2025 [id number] / [id number] / [id number] System Urolift - [id number] Implanted:Qty: 2 on 03/17/2023 by Devyn Paniagua MD at OR [facility] N/A: Urethra [employer] 11/18/2023 SB167-2 / / [id number] System Urolift - [id number] Implanted:Qty: 3 on 03/17/2023 by Devyn Paniagua MD at OR [facility] N/A: Urethra [employer] 11/03/2023 AX064-8 / / [id number] documented as of this encounter Visit Diagnoses Diagnosis Low folate documented in this encounter Additional Health Concerns [...] were consensually agreed upon. Care Teams Cargo Bracer Relationship Specialty Start Date End Date Jaime Day MD [address] [place] [address] [place] [phone] PCP - General Family Medicine 10/15/20 documented as of this encounter
--- OUTSIDE RECORDS SUMMARY | 2024-05-13 06:05 | External Medical Summary | Summary of Care ---
Author Name Unknown Organization [facility] Address [address] [place] [address] Phone [phone] Care Team Providers Care Winding Inspector And Tester Name Role Phone Jaime Garcia MD Primary Care Provide r Reason for Visit * Reason Comments Chemotherapy Cytoxan & Darzalex f aspro * Episode Based Medications (Routine) - Authorized Specialty Diagnoses / Procedures Referred By Contac t Referred To Contact Diagnoses Lambda light chain myeloma (HCC) AL amyloidosis (HCC) Procedures MS DARATUMUMAB, HYALURONIDASE MS CYCLOPHOSPHAMIDE 100 MG INJ MS INJ, CYCLOPHOSPHAMIDE, NOS Rosalio Amaral MD [facility] [place] [facility] [address] Anc Hem/Onc Scenesukhdeep Renae DEPT CLOSED - 07/26/23 [address] [place] [address] Referral ID Status Reason Start Date Expiration Date V isits Requested Visits Authorized [id number] Authorized 10/21/2023 10/21/2024 999 [id number] Encounter Details Date Type Department Care Team (Latest Contact Info) Description 01/27/2024 10:00 AM EDT Hem/Onc Treatment Hematology/Oncolog y Treatment, [facility] [place] [address] [place] [address] Bat[place], Chair 11 Hem Onc Scenery [address] [place] [phone] Lambda light chain myeloma (HCC)*; AL amyloidosis (HCC); Encounter for antineoplastic chemotherapy Allergies Active Allergy Reactions Criticality Noted Date Comments Atorvastatin Muscle pain High 03/30/2019 Ezetimibe Muscle pain High 01/25/2020 documented as of this encounter (statuses as of 02/21/2024) Medications Medication Sig Dispensed Refills Start Date End Date Status NSS 0.9 % SOLN with daratumumab 400 MG/20ML SOLN 16 mg/kgIndications:e very 4 weeks Administer intravenously every 14 days. Active CPAP every night at bedtime. Active oxygen IN GAS Use 2 L/min(Oxygen) as directed at bedtime. 1 Each 1 Active [employer] Ultra Blue In Vitro Strip (Glucose Blood)Indications: [...] mL 3 3 06/14/20 24 Active Pen Cruger 32G X 4 MM Use as directed. [...] long-term current use of insulin ([facility]) Use as directed to check [...] Oral Tablet (Coumadin)Indicati ons:Atrial fibrillation, unspecified type ([facility]),Anticoagulat ion management encounter,long-term current use of anticoagulant therapy,Paroxysmal atrial fibrillation ([facility]) Take up to one tablet by mouth daily as directed by anticoagulation clinic 90 Tablet 3 4 Active Dapsone 25 MG Oral TabletIndications: Multiple myeloma in relapse ([facility]) TAKE ONE TABLET BY MOUTH EVERY DAY 90 Tablet 1 4 10/27/19 25 Active Torsemide 10 MG Oral Tablet (Demadex)Indicatio ns:takes extra tab for swelling, wt gain Take 1 Tablet by mouth in the morning. As needed.. 4 Active oxyCODONE HCl 5 MG Oral Tablet (Oxy IR)Indications:Mul tiple myeloma in relapse ([facility]) Take 1 Tablet by mouth [...] goal of less than 7.0% ([facility]) Take 2 Tablets by mouth in the morning. 180 Tablet 1 4 Active DULoxetine HCl 20 MG Oral Capsule Delayed Release Particles (Cymbalta) Take 2 Capsules by mouth in the morning. 180 Capsule 1 4 Active Nystatin 879263 UNIT/ML Mouth/Throat SuspensionIndicati ons:Multiple myeloma in relapse ([facility]) Swish and swallow 5 mL [...] as needed for Nausea. 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 Degeneration of lumbosacral intervertebral disc 02/19/2005 documented as of this encounter (statuses as of 02/21/2024) Resolved Problems Problem Noted Date Diagnosed Date [...] as of this encounter (statuses as of 02/21/2024) Immunizations Name Administration Dates Next Due COVID-19, [...] Sign Reading Time Taken Comments Blood Pressure 118/82 01/27/2024 10:10 AM EDT Pulse 89 01/27/2024 10:10 AM EDT Temperature 35.8 C (96.4 F) 01/27/2024 10:10 AM E DT Respiratory Rate 16 01/27/2024 10:10 AM EDT Oxygen Saturation 93% 01/27/2024 10:10 AM EDT Inhaled Oxygen Concentration - - Weight 64.7 kg (142 lb 9.6 oz) 01/27/2024 10:10 AM EDT Height - - Body Mass Index 21.06 12/29/2023 9:09 AM EDT documented in this encounter Nursing Notes * Jennifer Jacobsen RN - 01/27/2024 12:37 PM EDT Goals: Patient will remain free from injury. Possible barriers to meeting goals: ambulation with IV pole Stability of the patient: Moderately stable - low risk of patient condition declining or worsening Summary regarding today's goals: Met: patient without injury during treatment today. Pt tolerated infusion well. No complaints. Discharged in stable condition. * Jennifer Jacobsen RN - 01/27/2024 10:37 AM EDT Chair 11 Pt here for Cytoxan & darzalex faspro. No complaints. States he's been feeling "usual". Chemotherapy/Immunotherapy agents: Cytoxan and DARZALEX Consent for chemotherapy drug treatment complete, dated, and signed? yes, date - 06/29/23 & 01/25/20 Treatment lab parameters met? Yes Has treatment weight changed > than 10%? No Treatment preauthorized? Yes VITALS Filed Vitals: 01/27/24 1010 BP: 118/82 Pulse: 89 Resp: 16 Temp: 35.8 C (96.4 F) TempSrc: Tympanic SpO2: 93% Weight: 64.7 kg (142 lb 9.6 oz) Urine protein: N/A Patient education completed for treatment? Yes Blood transfusion consent signed and complete? NA Return appointment scheduled? No - pt scheduled for CAR-T cell therapy at end of January Patient had provider visit today? No - If no provider visit must complete Pretreatment Assessment Functional Status: Functional status at today's visit: Restricted in physically strenuous activity but ambulatory and able to carry out work on a light orsedentary nature, e.g. light house work, office work The drug name, dose, infusion volume, rate and route of administration, expiration date and time, appearance and physical integrity of the drug and rate set on the pump and sequencing of drug administration (as applicable) were verified by me and second sign-in RN. Patient was assessed for symptoms or adverse side effects during treatment. PRE-TREATMENT ASSESSMENT: NEURO: denies symptoms and numbness or tingling: hands & feet - stable CV/RESP: denies symptoms GI/: denies symptoms OTHER: denies any additional symptoms PAIN: 3-4 pain location : hands & feet R/T neuropathy Safety and Risk for Injury Patient will remain free from injury. Ensure appropriate safety devices are available. Provide and maintain safe environment. documented in this encounter Plan of Treatment Upcoming Encounters Date Type Department Care Team (Late st Contact Info) Description 03/16/2024 8:30 AM EDT Anticoagulation Pharmacy, [address] [place] [address] [place] [address] 03/16/2024 2:00 PM EDT Telemedicine Hematology Oncology Cancer [place] [address] [place] [address] Thierno Patel PA-C [address] [facility] [place] [address] 04/06/2024 9:30 AM EDT Office Visit Cardiology, [facility] [address] [facility] [place] [address] Beth Salter CRNP [address] [place] [address] [place] [address] 04/16/2024 2:30 PM EDT Telemedicine Hematology Oncology Cancer [place] [address] [place] [address] Rosalio Amaral MD [address] [facility] [place] [address] 04/18/2024 10:00 AM EDT Home Visit [facility] [address] [facility] [place] [address] Sulma Seth, BOBBY [address] [place] [address] 04/19/2024 9:30 AM EDT Office Visit Cardiology [address] [place] [address] Tim Ruiz PA-C [address] [place] [address] 05/15/2024 2:00 PM EDT Telemedicine Hematology Oncology [place] [address] [place] [address] Thierno Patel PA-C [address] [place] [address] 06/20/2024 3:00 PM EDT Telemedicine Hematology [facility] [place] [address] [place] [address] Rosalio Amaral MD [address] [place] [address] 10/30/2024 1:45 PM EST Office Visit Urology, [facility] [address] [facility] [place] [address] Devyn Paniagua MD [address] [place] [address] 01/01/2025 10:20 AM EDT Office Visit Otolaryngology [facility] [address] [facility] [place] [address] Haley Aguero PA-C [address] [facility] [place] [address] Health Maintenance Due Date Last Done Comments [...] Additional history exists CKD HGB USE SMARTSET 07055 01/26/202501/26, 01/27/2024, 01/16/2024, Additional history exists CKD PHOS USE SMARTSET 37079 02/12/2025 06/0 11/2023, 01/27/2024, 01/16/2024, Additional history [...] this encounter Medical Devices Implanted Type Area Mobile Application Tester Device Identifier Shelf Expiration Date Model / Serial / Lot Port Power Mri W/8fr Cath - [id number] Implanted:Qty: 1 on 09/26/2020 by Simone Michelle MD at OR [facility] Right: Chest CR BARD : PERIPHERAL VASCULAR 10/12/2021 [id number] / / [id number] Description:right IJ Lens Intraoc 19.0 - [id number] - [id number] Implanted:Qty: 1 on 02/03/2021 by Chris Sexton MD at OR [facility] Right: Eye [employer]OMB 09/11/2025 [id number] / [id number] / Lens Intraoc 19.0 - [id number] - [id number] Implanted:Qty: 1 on 02/24/2021 by Chris Sexton MD at OR [facility] Left: Eye BAUSCH & LOMB 10/12/2025 [id number] / [id number] / [id number] System Urolift - [id number] Implanted:Qty: 2 on 03/17/2023 by Devyn Paniagua MD at OR [facility] N/A: Urethra [employer] 11/18/2023 [id number] / / [id number] System Urolift - [id number] Implanted:Qty: 3 on 03/17/2023 by Devyn Paniagua MD at OR [facility] N/A: Urethra [employer] 11/03/2023 [id number] / / [id number] documented as of this encounter Visit Diagnoses Diagnosis Lambda light chain myeloma (HCC)- Primary Multiple myeloma, without mention of having achieved remission AL amyloidosis (HCC) Other amyloidosis Encounter for antineoplastic chemotherapy documented in this encounter Administered Medications Inactive Administered Medications - up to 3 most recent administrations Medication Order MAR Action Action Date Dose Rate Site Acetaminophen (Tylenol) tab 650 mg 650 mg, Oral, ONCE, On Tue01/27/24 at 1045, For 1 dose, Maximum of 4 grams (4000 mg) per day. Given 01/27/2024 10:26 AM EDT 650 mg cycloPHOSphamide (Cytoxan) 500 mg in NSS 250 mL infusion 500 mg, IV Piggyback, Cyclophosphamide doses over 1g should be in 500 mL. May extend infusion to 1 hour if not tolerated., ONCE, 1 dose, On Tue01/27/24 at 1045 Start Infusion 01/27/2024 10:49 AM EDT 500 mg 550 mL/hr Daratumumab-hyaluronida se-fihj (Darzalex Faspro) 1800 mg-79866 units/ 15 ml subcut inj 15 mL, Subcutaneous, ONCE, On Tue01/27/24 at 1215, For 1 dose, Inject subcutanteously into abdomen over 3 to 5 minutes Given 01/27/2024 10:49 AM EDT 15 mL Abdomen Right Lower dexAMETHasone (Decadron) tab 20 mg 20 mg, Oral, ONCE, On Tue01/27/24 at 1115, For 1 dose Given 01/27/2024 10:26 AM EDT 20 mg diphenhydrAMINE (Benadryl) cap 25 mg 25 mg, Oral, ONCE, On Tue01/27/24 at 1045, For 1 dose Given 01/27/2024 10:26 AM EDT 25 mg Famotidine (Pepcid) tab 10 mg 10 mg, Oral, ONCE, On Tue01/27/24 at 1045, For 1 dose Given 01/27/2024 10:26 AM EDT 10 mg hEParin 100 UNIT/ML Lock Flush inj 500 Units 500 Units (5 mL), IV Lock, PRN Other, IV Flush, Starting on Tue01/27/24 at 1009, Until Tue01/27/24 at 1650, For 24 hours, Do not flush if lock, PICC, or central line not in place; IV infusing or unable to flush. Given 01/27/2024 11:24 AM EDT 500 Units NSS infusion 500 mL, Intravenous, at 50 mL/hr, CONTINUOUS, Starting on Tue01/27/24 at 1115, Until Tue01/27/24 at 1650 Start Infusion 01/27/2024 10:20 AM EDT 500 mL 50 mL/hr sodium chloride 0.9 % flush central line 10 mL 10 mL, IV Push, PRN Other, IV Flush, Starting on Tue01/27/24 at 1009, Until Tue01/27/24 at 1650, For 24 hours, Do not flush if lock, PICC, or central line not in place; IV infusing or unable to flush. Given 01/27/2024 11:24 AM EDT 10 mL documented in this encounter Additional [...] and were consensually agreed upon. Care Teams Winding Inspector And Tester Relationship Specialty Start Date End Date Jaime Garcia MD [address] [place] [address] [place] [address] PCP - General Family Medicine 10/15/20 documented as of this encounter
--- OUTSIDE RECORDS SUMMARY | 2024-05-13 06:05 | External Medical Summary | Summary of Care ---
Author Name Unknown Organization [facility] Address [address] [place] [address] Phone [phone] Care Team Providers Care Clay Digger Name Role Phone Jaime Garcia MD Primary Care Provide r Reason for Visit * Reason Comments Chemotherapy Cytoxan & Darzalex f aspro * Episode Based Medications (Routine) - Authorized Specialty Diagnoses / Procedures Referred By Contac t Referred To Contact Diagnoses Lambda light chain myeloma (HCC) AL amyloidosis (HCC) Procedures [place] DARATUMUMAB, HYALURONIDASE [place] CYCLOPHOSPHAMIDE 100 MG INJ [place] INJ, CYCLOPHOSPHAMIDE, NOS Rosalio Amaral MD [facility] [place] [address] Anc Hem/Onc Scenesukhdeep Renae DEPT CLOSED - 07/26/23 [address] [place] [address] Referral ID Status Reason Start Date Expiration Date V isits Requested Visits Authorized [id number] Authorized 10/21/2023 10/21/[phone] Encounter Details Date Type Department Care Team (Latest Contact Info) Description 01/27/2024 10:00 AM EDT Hem/Onc Treatment Hematology/Oncolog y Treatment, [place] [address] [place] [address] [place], Chair 11 Hem Onc Scenery [address] [place] [phone] Lambda light chain myeloma (HCC)*; AL amyloidosis [...] directed at bedtime. 1 Each 1 Active [email or web address] Ultra Blue In Vitro Strip (Glucose Blood)Indications: [...] mL 3 3 06/14/20 24 Active Pen Bartow 32G X 4 MM Use as directed. [...] (Coumadin)Indicati ons:Atrial fibrillation, unspecified type ([facility]),Anticoagulat ion management encounter,residential current use of anticoagulant therapy,Paroxysmal atrial fibrillation ([facility]) Take up to one tablet [...] morning. 180 Capsule 1 4 Active Nystatin 081728 UNIT/ML Mouth/Throat SuspensionIndicati ons:Multiple myeloma in relapse [...] in this encounter Nursing Notes * Jennifer Jacobsen, RN - 01/27/2024 12:37 PM EDT Goals: Patient will remain free from injury. Possible barriers to meeting goals: ambulation with IV pole Stability of the patient: Moderately stable - low risk of patient condition declining or worsening Summary regarding today's goals: Met: patient without injury during treatment today. Pt tolerated infusion well. No complaints. Discharged in stable condition. * Jennifer Jacobsen, RN - 01/27/2024 10:37 AM EDT Chair [...] Description 03/16/2024 8:30 AM EDT Anticoagulation Pharmacy, [address] [place] [address] [place] [address] 03/16/2024 2:00 PM EDT Telemedicine Hematology Oncology Cancer [place] [address] [place] [address] Thierno Patel PA-C [address] [place] [address] 04/06/2024 9:30 AM EDT Office Visit Cardiology, [facility] [address] [place] [address] Beth Salter CRNP [address] [place] [address] [place] [address] 04/16/2024 2:30 PM EDT Telemedicine Hematology Oncology Cancer [place] [address] [place] [address] Rosalio Amaral MD [address] [place] [address] 04/18/2024 10:00 AM EDT [facility] [address] [place] [address] Sulma Seth RN [address] [place] [address] 04/19/2024 9:30 AM EDT Office Visit Cardiology [address] [place] [address] Tim Ruiz PA-C [address] [place] [address] 05/15/2024 2:00 PM EDT [facility] [address] [place] [address] Thierno Patel PA-C [address] [place] [address] 06/20/2024 3:00 PM EDT Telemedicine Hematology [facility]cology [facility] [place] [address] [place] [address] Rosalio Amaral MD [address] [place] [address] 10/30/2024 1:45 PM EST Office Visit Urology, [facility] [address] [place] [address] Devyn Paniagua MD [address] [facility] [address] [place] [address] 01/01/2025 10:20 AM EDT Office [facility] [place] [address] Haley Aguero PA-C [address] [facility] [place] [address] Health Maintenance Due Date Last Done Comments [...] Additional history exists CKD HGB USE SMARTSET 65[address] 01/26/202501/26, 01/27/2024, 01/16/2024, Additional history exists CKD PHOS USE SMARTSET 44962 02/12/2025 06/0 11/2023, 01/27/2024, 01/16/2024, Additional history [...] this encounter Medical Devices Implanted Type Area Energy Conservation Technician Device Identifier Shelf Expiration Date Model / Serial / Lot Port Power Mri W/8fr Cath - [id number] Implanted:Qty: 1 on 09/26/2020 by Simone Michelle MD at OR [facility] Right: Chest CR BARD : PERIPHERAL VASCULAR 10/12/2021 [id number] / / [id number] Description:right IJ Lens Intraoc 19.0 - [id number] - [id number] Implanted:Qty: 1 on 02/03/2021 by Chris Sexton MD at OR [facility] Right: Eye BAUSCH [employer]OMB 09/11/2025 [id number] / [id number] / Lens Intraoc 19.0 - [id number] - [id number] Implanted:Qty: 1 on 02/24/2021 by Chris Sexton MD at OR [facility] Left: Eye BAUSCH [employer] LOMB 10/12/2025 [id number] / [id number] / [id number] System Urolift - [id number] Implanted:Qty: 2 on 03/17/2023 by Devyn Paniagua MD at OR [facility] N/A: Urethra [employer] 11/18/2023 [id number] / / [id number] System Urolift - [id number] Implanted:Qty: 3 on 03/17/2023 by Devyn Paniagua MD at OR [facility] N/A: Urethra [employer] 11/03/2023 [id number] / / [id number] documented as of this encounter Visit Diagnoses [...] 550 mL/hr Daratumumab-hyaluronida se-fihj (Darzalex Faspro) 1800 mg-13019 units/ 15 ml subcut inj 15 mL, [...] and were consensually agreed upon. Care Teams Clay Digger Relationship Specialty Start Date End Date Jaime Garcia MD [address] [place] [address] [place] [address] PCP - General Family Medicine 10/15/20 documented as of this encounter
--- OUTSIDE RECORDS SUMMARY | 2024-05-13 06:05 | External Medical Summary | Summary of Care ---
Author Name Unknown Organization [facility] Address [address] [place] [address] Phone [phone] Care Team Providers Care Summer Law Associate Name Role Phone Jaime Garcia MD Primary Care Provide r Reason for Visit * Reason Comments Chemotherapy Cytoxan & Darzalex f aspro * Episode Based Medications (Routine) - Authorized Specialty Diagnoses / Procedures Referred By Contac t Referred To Contact Diagnoses Lambda light chain myeloma (HCC) AL amyloidosis (HCC) Procedures [place] DARATUMUMAB, HYALURONIDASE [place] CYCLOPHOSPHAMIDE 100 MG INJ [place] INJ, CYCLOPHOSPHAMIDE, NOS Rosalio Amaral MD [facility] [place] [address] Anc Hem/Onc Scenesukhdeep Renae DEPT CLOSED - 07/26/23 [address] [place] [phone] Referral ID Status Reason Start Date Expiration Date V isits Requested Visits Authorized [id number] Authorized 10/21/2023 10/21/2024 999 [id number] Encounter Details Date Type Department Care Team (Latest Contact Info) Description 01/27/2024 10:00 AM EDT Hem/Onc Treatment Hematology/Oncolog y Treatment, [facility] [place] [address] [place] [address] Batool, Chair 11 Hem Onc Scenery [address] [place] [phone] Lambda light chain myeloma (HCC)*; AL amyloidosis [...] directed at bedtime. 1 Each 1 Active RayV Ultra Blue In Vitro Strip (Glucose Blood)Indications: [...] mL 3 3 06/14/20 24 Active Pen [place] 32G X 4 MM Use as directed. [...] Oral Tablet (Coumadin)Indicati ons:Atrial fibrillation, unspecified type ([facility]),Anticoagulat ion management encounter,sen[facility] living current use of anticoagulant therapy,Paroxysmal atrial fibrillation ([facility]) Take up to one tablet by mouth daily as directed by anticoagulation clinic 90 Tablet 3 4 Active Dapsone 25 MG Oral TabletIndications: Multiple myeloma in relapse ([facility]) TAKE ONE TABLET BY MOUTH EVERY DAY 90 Tablet 1 4 10/27/19 25 Active Torsemide 10 MG Oral Tablet (Demadex)Indicatio ns:takes extra tab for swelling, wt gain Take 1 Tablet by mouth in the morning. As needed.. 4 Active oxyCODONE HCl 5 MG Oral Tablet (Oxy IR)Indications:Mul tiple myeloma in relapse ([facility]) Take 1 Tablet by mouth [...] morning. 180 Capsule 1 4 Active Nystatin 295245 UNIT/ML Mouth/Throat SuspensionIndicati ons:Multiple myeloma in relapse ([facility]) Swish and swallow 5 mL [...] Description 03/16/2024 8:30 AM EDT Anticoagulation Pharmacy, [address] [place] [address] [place] [address] 03/16/2024 2:00 PM EDT Telemedicine Hematology Oncology Cancer [place]ree UGARTE [address] [place] [address] Thierno Patel PA-C [address] [place] [address] 04/06/2024 9:30 AM EDT Office Visit Cardiology, [facility] [address] [place] [address] Beth Salter CRNP [address] [place] [address] [place] [address] 04/16/2024 2:30 PM EDT Telemedicine Hematology Oncology Cancer [place]ree UGARTE [address] [place] [address] Rosalio Amaral MD [address] [place] [address] 04/18/2024 10:00 AM EDT [facility] [address] [place] [address] Sulma Seth RN [address] [place] [address] 04/19/2024 9:30 AM EDT Office Visit Cardiology [address] [place] [address] Tim Ruiz PA-C [address] [place] [address] 05/15/2024 2:00 PM EDT [facility] [address] [place] [address] Thierno Patel PA-C [address] [place] [address] 06/20/2024 3:00 PM EDT Telemedicine H[facility]ology [facility] [place] [address] [place] [address] Rosalio Amaral MD [address] [place] [address] 10/30/2024 1:45 PM EST Office Visit Urology, [facility] [address] [place] [address] Devyn Paniagua MD [address] [facility] [address] [place] [address] 01/01/2025 10:20 AM EDT Office Visit [facility] [place] [address] Haley Aguero PA-C [address] [facility] [place] [address] Health Maintenance Due Date Last Done Comments [...] Additional history exists CKD HGB USE SMARTSET 87006 01/26/202501/26, 01/27/2024, 01/16/2024, Additional history exists CKD PHOS USE SMARTSET 03341 02/12/2025 06/0 11/2023, 01/27/2024, 01/16/2024, Additional history [...] encounter Medical Devices Implanted Type Area Manager Corporate Strategy Device Identifier Shelf Expiration Date Model / Serial / Lot Port Power Mri W/8fr Cath - [id number] Implanted:Qty: 1 on 09/26/2020 by Simone Michelle MD at OR [facility] Right: Chest CR BARD : PERIPHERAL VASCULAR 10/12/2021 [id number] / / [id number] Description:right IJ Lens Intraoc 19.0 - [id number] - [id number] Implanted:Qty: 1 on 02/03/2021 by Chris Sexton MD at OR [facility] Right: Eye [employer]USCH [employer] LOMB 09/11/2025 [id number] / [id number] / Lens Intraoc 19.0 - [id number] - [id number] Implanted:Qty: 1 on 02/24/2021 by Chris Sexton MD at OR [facility] Left: Eye BAUSCH & LOMB 10/12/2025 [id number] / [id number] / [id number] System Urolift - [id number] Implanted:Qty: 2 on 03/17/2023 by Devyn Paniagua MD at OR [facility] N/A: Urethra [employer] 11/18/2023 SO278-7 / / [id number] System Urolift - [id number] Implanted:Qty: 3 on 03/17/2023 by Devyn Paniagua MD at OR [facility] N/A: Urethra [employer] 11/03/2023 JB220-0 / / [id number] documented as of this encounter Visit Diagnoses [...] 550 mL/hr Daratumumab-hyaluronida se-fihj (Darzalex Faspro) 1800 mg-77256 units/ 15 ml subcut inj 15 mL, [...] and were consensually agreed upon. Care Teams Summer Law Associate Relationship Specialty Start Date End Date Jaime Garcia MD [address] [place] [address] [place] [address] PCP - General Family Medicine 10/15/20 documented as of this encounter
--- OUTSIDE RECORDS SUMMARY | 2024-05-13 06:05 | External Medical Summary | Summary of Care ---
Author Name Unknown Organization [facility] Address [address] [place] [address] Phone [phone] Care Team Providers Care Policy Manager Name Role Phone Jaime Garcia MD Primary Care Provide r Reason for Visit * Reason Comments Chemotherapy Cytoxan & Darzalex f aspro * Episode Based Medications (Routine) - Authorized Specialty Diagnoses / Procedures Referred By Contac t Referred To Contact Diagnoses Lambda light chain myeloma (HCC) AL amyloidosis (HCC) Procedures [place] DARATUMUMAB, HYALURONIDASE [place] CYCLOPHOSPHAMIDE 100 MG INJ [place] INJ, CYCLOPHOSPHAMIDE, NOS Rosalio Amaral MD [facility] [place] [address] Anc Hem/Onc Scenesukhdeep Renae DEPT CLOSED - 07/26/23 [address] [place] [phone] Referral ID Status Reason Start Date Expiration Date V isits Requested Visits Authorized [id number] Authorized 10/21/2023 10/21/[phone] Encounter Details Date Type Department Care Team (Latest Contact Info) Description 01/27/2024 10:00 AM EDT Hem/Onc Treatment Hematology/Oncolog y Treatment, [place] [address] [place] [address] [place], Chair 11 Hem Onc Scenery [address] [place] [phone] Lambda light chain myeloma (HCC)*; AL amyloidosis [...] directed at bedtime. 1 Each 1 Active Penxy Ultra Blue In Vitro Strip (Glucose Blood)Indications: [...] mL 3 3 06/14/20 24 Active Pen [place] 32G X 4 MM Use as directed. [...] long-term current use of insulin ([facility]) Use as directed to check [...] (Coumadin)Indicati ons:Atrial fibrillation, unspecified type ([facility]),Anticoagulat ion management encounter,[facility] current use of anticoagulant therapy,Paroxysmal atrial fibrillation ([facility]) Take up to one tablet by mouth daily as directed by anticoagulation clinic 90 Tablet 3 4 Active Dapsone 25 MG Oral TabletIndications: Multiple myeloma in relapse ([facility]) TAKE ONE TABLET BY MOUTH EVERY DAY 90 Tablet 1 4 10/27/19 25 Active Torsemide 10 MG Oral Tablet (Demadex)Indicatio ns:takes extra tab for swelling, wt gain Take 1 Tablet by mouth in the morning. As needed.. 4 Active oxyCODONE HCl 5 MG Oral Tablet (Oxy IR)Indications:Mul tiple myeloma in relapse ([facility]) Take 1 Tablet by mouth [...] goal of less than 7.0% ([facility]) Take 2 Tablets by mouth in the morning. 180 Tablet 1 4 Active DULoxetine HCl 20 MG Oral Capsule Delayed Release Particles (Cymbalta) Take 2 Capsules by mouth in the morning. 180 Capsule 1 4 Active Nystatin 823921 UNIT/ML Mouth/Throat SuspensionIndicati ons:Multiple myeloma in relapse ([facility]) Swish and swallow 5 mL [...] 03/16/2024 8:30 AM EDT Anticoagulation Pharmacy, [address] [place] [address] [place] [address] 03/16/2024 2:00 PM EDT Telemedicine Hematology Oncology Cancer [place] Tyree UGARTE [address] [place] [address] Thierno Patel PA-C [address] [place] [address] 04/06/2024 9:30 AM EDT Office Visit Cardiology, [facility] [address] [place] [address] Beth Salter CRNP [address] [place] [address] [place] [address] 04/16/2024 2:30 PM EDT Telemedicine Hematology Oncology [facility] [place]ree UGARTE [address] [place] [address] Rosalio Amaral MD [address] [place] [address] 04/18/2024 10:00 AM EDT [facility] [address] [place] [address] Sulma Seth RN [address] [place] [address] 04/19/2024 9:30 AM EDT Office Visit Cardiology [address] [place] [address] Tim Ruiz PA-C [address] [place] [address] 05/15/2024 2:00 PM EDT Telemedicine [facility] [address] [place] [address] Thierno Patel PA-C [address] [place] [address] 06/20/2024 3:00 PM EDT Telemedicine Hematology [facility] [place] [address] [place] [address] Rosalio Amaral MD [address] [place] [address] 10/30/2024 1:45 PM EST Office Visit Urology, [facility] [address] [place] [address] Devyn Paniagua MD [address] [facility] [address] [place] [address] 01/01/2025 10:20 AM EDT Office Visit [facility]ology [facility] [place] [address] Haley Aguero PA-C 132 [facility] [place] [address] Health Maintenance Due Date Last Done Comments [...] Additional history exists CKD HGB USE SMARTSET 35278 01/26/202501/26, 01/27/2024, 01/16/2024, Additional history exists CKD PHOS USE SMARTSET 77610 02/12/2025 06/0 11/2023, 01/27/2024, 01/16/2024, Additional history [...] this encounter Medical Devices Implanted Type Area Naturopathic Physician Device Identifier Shelf Expiration Date Model / Serial / Lot Port Power Mri W/8fr Cath - [id number] Implanted:Qty: 1 on 09/26/2020 by Simone Michelle MD at OR [facility] Right: Chest CR BARD : PERIPHERAL VASCULAR 10/12/2021 [id number] / / [id number] Description:right IJ Lens Intraoc 19.0 - [id number] - [id number] Implanted:Qty: 1 on 02/03/2021 by Chris Sexton MD at OR [facility] Right: Eye BAUSCH & LOMB 09/11/2025 [id number] / [id number] / Lens Intraoc 19.0 - [id number] - [id number] Implanted:Qty: 1 on 02/24/2021 by Chris Sexton MD at OR [facility] Left: Eye BAUSCH & LOMB 10/12/2025 [id number] / [id number] / [id number] System Urolift - [id number] Implanted:Qty: 2 on 03/17/2023 by Devyn Paniagua MD at OR [facility] N/A: Urethra [employer] 11/18/2023 YW852-3 / / [id number] System Urolift - [id number] Implanted:Qty: 3 on 03/17/2023 by Devyn Paniagua MD at OR [facility] N/A: Urethra [employer] 11/03/2023 JE019-7 / / [id number] documented as of this encounter Visit Diagnoses [...] 550 mL/hr Daratumumab-hyaluronida se-fihj (Darzalex Faspro) 1800 mg-78138 units/ 15 ml subcut inj 15 mL, [...] and were consensually agreed upon. Care Teams Policy Manager Relationship Specialty Start Date End Date Jaime Garcia MD [address] [place] [address] [place] [address] PCP - General Family Medicine 10/15/20 documented as of this encounter
--- OUTSIDE RECORDS SUMMARY | 2024-05-13 06:05 | External Medical Summary | Summary of Care ---
Author Name Unknown Organization [facility] Address [address] [place] [address] Phone [phone] Care Team Providers Care Conference Translator Name Role Phone Jaime Garcia MD Primary Care Provide r Reason for Visit * Reason Comments Chemotherapy Cytoxan & Darzalex f aspro * Episode Based Medications (Routine) - Authorized Specialty Diagnoses / Procedures Referred By Contac t Referred To Contact Diagnoses Lambda light chain myeloma (HCC) AL amyloidosis (HCC) Procedures [place] DARATUMUMAB, HYALURONIDASE [place] CYCLOPHOSPHAMIDE 100 MG INJ [place] INJ, CYCLOPHOSPHAMIDE, NOS Rosalio Amaral MD [facility] [place] [facility] [place] [address] Anc Hem/Onc Scenesukhdeep Renae DEPT CLOSED - 07/26/23 [address] [place] [phone] Referral ID Status Reason Start Date Expiration Date V isits Requested Visits Authorized [id number] Authorized 10/21/2023 10/21/2024 999 999 Encounter Details Date Type Department Care Team (Latest Contact Info) Description 01/27/2024 10:00 AM EDT Hem/Onc Treatment Hematology/Oncolog y Treatment, [place] [address] [place] [address] [place], Chair 11 Hem Onc Scenery [address] [place] [phone] Lambda light chain myeloma (HCC)*; AL amyloidosis [...] directed at bedtime. 1 Each 1 Active CoreOptics Ultra Blue In Vitro Strip (Glucose Blood)Indications: [...] mL 3 3 06/14/20 24 Active Pen Arrey 32G X 4 MM Use as directed. [...] Oral Tablet (Coumadin)Indicati ons:Atrial fibrillation, unspecified type ([facility]),Anticoagulat ion management encounter,retirement current use of anticoagulant therapy,Paroxysmal atrial fibrillation ([facility]) Take up to one tablet by mouth daily as directed by anticoagulation clinic 90 Tablet 3 4 Active Dapsone 25 MG Oral TabletIndications: Multiple myeloma in relapse ([facility]) TAKE ONE TABLET BY MOUTH EVERY DAY 90 Tablet 1 4 10/27/19 25 Active Torsemide 10 MG Oral Tablet (Demadex)Indicatio ns:takes extra tab for swelling, wt gain Take 1 Tablet by mouth in the morning. As needed.. 4 Active oxyCODONE HCl 5 MG Oral Tablet (Oxy IR)Indications:Mul tiple myeloma in relapse ([facility]) Take 1 Tablet by mouth every [...] morning. 180 Capsule 1 4 Active Nystatin 912030 UNIT/ML Mouth/Throat SuspensionIndicati ons:Multiple myeloma in relapse ([facility]) Swish and swallow 5 mL in [...] without remission 06/14/2014 Overview: Dr Rodriges/ [facility] DIRECTIVE INFORMATION 10/13/2006 Overview: No, [...] Description 03/16/2024 8:30 AM EDT Anticoagulation Pharmacy, [address] [place] [address] [place] [address] 03/16/2024 2:00 PM EDT Telemedicine Hematology Oncology Cancer [place]TE [address] [place] [address] Thierno Patel PA-C [address] [place] [address] 04/06/2024 9:30 AM EDT Office Visit Cardiology, [facility] [address] [place] [address] Beth Salter CRNP [address] [place] [address] [place] [address] 04/16/2024 2:30 PM EDT Telemedicine Hematology Oncology Cancer [place] UGARTE [address] [place] [address] Rosalio Amaral MD [address] [place] [address] 04/18/2024 10:00 AM EDT [facility] [address] [place] [address] Sulma Seth RN [address] [place] [address] 04/19/2024 9:30 AM EDT Office Visit Cardiology [address] [place] [address] Tim Ruiz PA-C [address] [place] [address] 05/15/2024 2:00 PM EDT [facility]medicine [facility] [address] [place] [address] Thierno Patel PA-C [address] [place] [address] 06/20/2024 3:00 PM EDT Telemedicine Hematology [facility] [place] [address] [place] [address] Rosalio Amaral MD [address] [place] [address] 10/30/2024 1:45 PM EST Office Visit Urology, [facility] [address] [place] [address] Devyn Paniagua MD [address] [facility] [address] [place] [address] 01/01/2025 10:20 AM EDT Office Visit [facility] [place] [address] Haley Aguero PA-C 132 [facility] [place] [address] Health Maintenance Due Date Last Done Comments [...] Additional history exists CKD HGB USE SMARTSET 33855 01/26/202501/26, 01/27/2024, 01/16/2024, Additional history exists CKD PHOS USE SMARTSET 27374 02/12/2025 06/0 11/2023, 01/27/2024, 01/16/2024, Additional history [...] this encounter Medical Devices Implanted Type Area Crtts Device Identifier Shelf Expiration Date Model / Serial / Lot Port Power Mri W/8fr Cath - [id number] Implanted:Qty: 1 on 09/26/2020 by Simone Michelle MD at OR [facility] Right: Chest CR BARD : PERIPHERAL VASCULAR 10/12/2021 [id number] / / [id number] Description:right IJ Lens Intraoc 19.0 - [id number] - [id number] Implanted:Qty: 1 on 02/03/2021 by Chris Sexton MD at OR [facility] Right: Eye BAUSCH & LOMB 09/11/2025 [id number] / [id number] / Lens Intraoc 19.0 - [id number] - [id number] Implanted:Qty: 1 on 02/24/2021 by Chris Sexton MD at OR [facility] Left: Eye BAUSCH & LOMB 10/12/2025 [id number] / [id number] System Urolift - [id number] Implanted:Qty: 2 on 03/17/2023 by Devyn Paniagua MD at OR [facility] N/A: Urethra [employer] 11/18/2023 JC590-9 / / [id number] System Urolift - [id number] Implanted:Qty: 3 on 03/17/2023 by Devyn Paniagua MD at OR [facility] N/A: Urethra [employer] 11/03/2023 PM621-8 / / [id number] documented as of this encounter Visit Diagnoses [...] 550 mL/hr Daratumumab-hyaluronida se-fihj (Darzalex Faspro) 1800 mg-24502 units/ 15 ml subcut inj 15 mL, [...] were consensually agreed upon. Care Teams Conference Translator Relationship Specialty Start Date End Date Jaime Garcia MD [address] [place] [address] [place] [address] PCP - General Family Medicine 10/15/20 documented as of this encounter
--- OUTSIDE RECORDS SUMMARY | 2024-05-13 06:05 | External Medical Summary | Summary of Care ---
Author Name Unknown Organization [facility] Address [address] [place] [address] Phone [phone] Care Team Providers Care Patient Accounting Representative Name Role Phone Jaime Garcia MD Primary Care Provide r Reason for Referral * Evaluate & Treat - Unlimited Visits (Within 10 days (routine)) - Authorized Specialty Diagnoses / Procedures Referred By Contact Referred To Contact Cardiac Electrophysiology / Cardiology Diagnoses Cardiac amyloidosis (HCC) NSVT (nonsustained ventricular tachycardia) (HCC) Beth Gibbs CRNP [address] [place] [address] Referral ID Status Reason Start Date Expiration Date Visits Requested Visits Authorized [id number] Authorized Specialty Services Required 02/10/2024 999 999 Question Answer Referral Priority Within 10 days (routine) Where should this appointment be scheduled? [facility] Comments 38 beat run of [place]- cardiac Amyloid. Known to Dr. Dee Reason for Visit * Reason Onset Date Comments Test Results 02/10/2024 Encounter Details Date Type Department Care Team (Late st Contact Info) Description 02/10/2024 Telephone Cardiology, [facility] [address] [place] [address] Beth Gibbs CRNP [address] [facility] [place] [address] Test Results Allergies Active Allergy Reactions Criticality Noted Date Comments Atorvastatin Muscle pain High 03/30/2019 Ezetimibe Muscle pain High 01/25/2020 documented as of this encounter (statuses as of 02/22/2024) Medications Medication Sig Dispensed Refills Start Date End Date Status NSS 0.9 % SOLN with daratumumab 400 MG/20ML SOLN 16 mg/kgIndications:e very 4 weeks Administer intravenously every 14 days. Active CPAP every night at bedtime. Active oxygen IN GAS Use 2 L/min(Oxygen) as directed at bedtime. 1 Each 1 Active English Helper Ultra Blue In Vitro Strip (Glucose Blood)Indications: [...] differently: 150 mcgOral Daily(AM), Reported on 08/20/2023 Repcaterina SureClick 140 MG/ML Subcutaneous Solution Auto-injector (evolocumab)Indica tions:Dyslipidemia , goal LDL below 70 INJECT 140MG (1 INJECTION) UNDER THE SKIN EVERY 14 DAYS. REMOVE FROM REFRIGERATOR 30 MINUTES PRIOR TO INJECTION 6 mL 3 3 06/14/20 24 Active Pen [place] 32G X 4 MM Use as directed. [...] Oral Tablet (Coumadin)Indicati ons:Atrial fibrillation, unspecified type ([facility]),Anticoagulat ion management encounter,group home current use of anticoagulant therapy,Paroxysmal atrial fibrillation ([facility]) Take up to one tablet by mouth daily as directed by anticoagulation clinic 90 Tablet 3 4 Active Dapsone 25 MG Oral TabletIndications: Multiple myeloma in relapse ([facility]) TAKE ONE TABLET BY MOUTH EVERY DAY 90 Tablet 1 4 10/27/19 25 Active Torsemide 10 MG Oral Tablet (Demadex)Indicatio ns:takes extra tab for swelling, wt gain Take 1 Tablet by mouth in the morning. As needed.. 4 Active oxyCODONE HCl 5 MG Oral Tablet (Oxy IR)Indications:Mul tiple myeloma in relapse ([facility]) Take [...] of less than 7.0% ([facility]) Take 2 Tablets by mouth in the morning. 180 Tablet 1 4 Active DULoxetine HCl 20 MG Oral Capsule Delayed Release Particles (Cymbalta) Take 2 Capsules by mouth in the morning. 180 Capsule 1 4 Active Nystatin 732444 UNIT/ML Mouth/Throat SuspensionIndicati ons:Multiple myeloma in relapse ([facility]) Swish and swallow 5 mL in [...] as of this encounter (statuses as of 02/22/2024) Active Problems Problem Noted Date Diagnosed Date [...] as of this encounter (statuses as of 02/22/2024) Resolved Problems Problem Noted Date Diagnosed Date [...] as of this encounter (statuses as of 02/22/2024) Immunizations Name Administration Dates Next Due COVID-19, [...] 02/10/2024 4:24 PM EDT Sent patient a [employer] message to make aware. Awaiting reply to [...] Description 03/16/2024 8:30 AM EDT Anticoagulation Pharmacy, [address] [place] [address] [place] [address] 03/16/2024 2:00 PM EDT Telemedicine H[facility]ology [facility] [place] [place] [address] [place] [address] Thierno Patel PA-C [address] [place] [address] 04/06/2024 9:30 AM EDT Office Visit Cardiology, [facility] [address] [facility] [place] [address] Beth Salter CRNP [address] [place] [address] [place] [phone] 04/16/2024 2:30 PM EDT Telemedicine Hematology [facility] [place] [address] [place] [address] Rosalio Amaral MD [address] [place] [address] 04/18/2024 10:00 AM EDT [facility] Visit [facility] [address] [place] [address] Sulma Seth, RN [address] [place] [address] 04/19/2024 9:30 AM EDT Office Visit Cardiology [address] [place] [address] Tim Ruiz PA-C [address] [place] [address] 05/15/2024 2:00 PM EDT [facility] [address] [place] [address] Thierno Patel PA-C [address] [place] [address] 06/20/2024 3:00 PM EDT Telemedicine H[facility]ology [facility] [place] Jordan [address] [place] [address] Rosalio Amaral MD [address] [place] [address] 10/30/2024 1:45 PM EST Office Visit Urology, [facility] [address] [place] [address] Devyn Paniagua MD [address] [place] [address] [place] [address] 01/01/2025 10:20 AM EDT Office Visit Otolaryngology [facility] [address] [place] [address] Haley Aguero PA-C [address] [place] [address] Scheduled Orders Name Type Priority Associated Diagnoses [...] Additional history exists CKD HGB USE SMARTSET 21701 01/26/202501/26, 01/27/2024, 01/16/2024, Additional history exists CKD PHOS USE SMARTSET 80859 02/12/2025 06/0 11/2023, 01/27/2024, 01/16/2024, Additional history [...] this encounter Medical Devices Implanted Type Area Speech Correction Assistant Device Identifier Shelf Expiration Date Model / Serial / Lot Port Power Mri W/8fr Cath - [id number] Implanted:Qty: 1 on 09/26/2020 by Simone Michelle MD at OR [facility] Right: Chest CR BARD : PERIPHERAL VASCULAR 10/12/2021 [id number] / / [id number] Description:right IJ Lens Intraoc 19.0 - [id number] - [id number] Implanted:Qty: 1 on 02/03/2021 by Chris Sexton MD at OR [facility] Right: Eye BAUSCH & LOMB 09/11/2025 [id number] / [id number] / Lens Intraoc 19.0 - [id number] - [id number] Implanted:Qty: 1 on 02/24/2021 by Chris Sexton MD at OR [facility] Left: Eye BAUSCH & LOMB 10/12/2025 [id number] / [id number] / [id number] System Urolift - [id number] Implanted:Qty: 2 on 03/17/2023 by Devyn Pnaiagua MD at OR [facility] N/A: Urethra [employer] 11/18/2023 [id number] / / [id number] System Urolift - [id number] Implanted:Qty: 3 on 03/17/2023 by Devyn Paniagua MD at OR [facility] N/A: Urethra [employer] 11/03/2023 [id number] / / [id number] documented as of this encounter Visit Diagnoses [...] and were consensually agreed upon. Care Teams Patient Accounting Representative Relationship Specialty Start Date End Date Jaime Garcia MD [address] [place] [address] [place] [phone] PCP - General Family Medicine 10/15/20 documented as of this encounter
--- OUTSIDE RECORDS SUMMARY | 2024-05-13 06:05 | External Medical Summary | Summary of Care ---
Author Name Unknown Organization [facility] Address [address] [place] [address] Phone [phone] Care Team Providers Care Eyewear Consultant Name Role Phone Jaime Garcia MD Primary Care Provide r Reason for Visit * Reason Comments Chemotherapy Cytoxan & Darzalex f aspro * Episode Based Medications (Routine) - Authorized Specialty Diagnoses / Procedures Referred By Contac t Referred To Contact Diagnoses Lambda light chain myeloma (HCC) AL amyloidosis (HCC) Procedures DC DARATUMUMAB, HYALURONIDASE DC CYCLOPHOSPHAMIDE 100 MG INJ DC INJ, CYCLOPHOSPHAMIDE, NOS Rosalio Amaral MD [facility] [place] [facility] [place] [address] Anc Hem/Onc Scenesukhdeep Renae DEPT CLOSED - 07/26/23 [address] [place] [phone] Referral ID Status Reason Start Date Expiration Date V isits Requested Visits Authorized [id number] Authorized 10/21/2023 10/21/2024 999 999 Encounter Details Date Type Department Care Team (Latest Contact Info) Description 01/27/2024 10:00 AM EDT Hem/Onc Treatment Hematology/Oncolog y Treatment, [facility] [address] [place] [address] [place], Chair [address] Hem On[address] Sc[address] [place] [phone] Lambda light chain myeloma (HCC)*; AL amyloidosis [...] directed at bedtime. 1 Each 1 Active Attenex Ultra Blue In Vitro Strip (Glucose Blood)Indications: [...] mL 3 3 06/14/20 24 Active Pen [place] 32G X 4 MM [...] unspecified type ([facility]),Anticoagulat ion management encounter,alf current use of anticoagulant therapy,Paroxysmal [...] morning. 180 Capsule 1 4 Active Nystatin 042940 UNIT/ML Mouth/Throat SuspensionIndicati ons:Multiple myeloma in relapse [...] Description 03/16/2024 8:30 AM EDT Anticoagulation Pharmacy, [address] [place] [address] [place] [address] 03/16/2024 2:00 PM EDT Telemedicine Hematology Oncology [facility] [place] Tyree UGARTE [address] [place] [address] Thierno Patel PA-C [address] [place] [address] 04/06/2024 9:30 AM EDT Office Visit Cardiology, [facility] [address] [place] [address] Beth Salter CRNP [address] [place] [address] [place] [address] 04/16/2024 2:30 PM EDT Telemedicine Hematology Oncology [facility] [place] Tyree UGARTE [address] [place] [address] Rosalio Amaral MD [address] [place] [address] 04/18/2024 10:00 AM EDT [facility] [address] [place] [address] Sulma Seth RN [address] [place] [address] 04/19/2024 9:30 AM EDT Office Visit Cardiology [address] [place] [address] Tim Ruiz PA-C [address] [place] [address] 05/15/2024 2:00 PM EDT [facility] [address] [place] [address] Thierno Patel PA-C [address] [place] [address] 06/20/2024 3:00 PM EDT Telemedicine H[facility]ology [facility] [place] [address] [place] [address] Rosalio Amaral MD [address] [place] [address] 10/30/2024 1:45 PM EST Office Visit Urology, [facility] [address] [place] [address] Devyn Paniagua MD [address] [facility] [address] [place] [address] 01/01/2025 10:20 AM EDT Office Visit [facility]ol[facility] [place] [address] Haley Aguero PA-C 132 [facility] [place] [address] Health Maintenance Due Date Last Done Comments [...] Additional history exists CKD HGB USE SMARTSET 13658 01/26/202501/26, 01/27/2024, 01/16/2024, Additional history exists CKD PHOS USE SMARTSET 81270 02/12/2025 06/0 11/2023, 01/27/2024, 01/16/2024, Additional history [...] this encounter Medical Devices Implanted Type Area Dry Sander Device Identifier Shelf Expiration Date Model / Serial / Lot Port Power Mri W/8fr Cath - [id number] Implanted:Qty: 1 on 09/26/2020 by Simone Michelle MD at OR [facility] Right: Chest CR BARD : PERIPHERAL VASCULAR 10/12/2021 [id number] / / [id number] Description:right IJ Lens Intraoc 19.0 - [id number] - [id number] Implanted:Qty: 1 on 02/03/2021 by Chris Sexton MD at OR [facility] Right: Eye BAUSCH & LOMB 09/11/2025 [id number] / [id number] / Lens Intraoc 19.0 - [id number] - [id number] Implanted:Qty: 1 on 02/24/2021 by Chris Sexotn MD at OR [facility] Left: Eye BAUSCH & LOMB 10/12/2025 [id number] / [id number] / [id number] System Urolift - [id number] Implanted:Qty: 2 on 03/17/2023 by Devyn Paniagua MD at OR [facility] N/A: Urethra [employer] 11/18/2023 [id number] / / [id number] System Urolift - [id number] Implanted:Qty: 3 on 03/17/2023 by Devyn Paniagua MD at OR [facility] N/A: Urethra [employer] 11/03/2023 [id number] / / [id number] documented as of this encounter Visit Diagnoses [...] 550 mL/hr Daratumumab-hyaluronida se-fihj (Darzalex Faspro) 1800 mg-22474 units/ 15 ml subcut inj 15 mL, [...] and were consensually agreed upon. Care Teams Eyewear Consultant Relationship Specialty Start Date End Date Jaime Garcia MD [address] [place] [address] [place] [address] PCP - General Family Medicine 10/15/20 documented as of this encounter
--- OUTSIDE RECORDS SUMMARY | 2024-05-13 06:06 | External Medical Summary | Summary of Care ---
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) Procedures IN DARATUMUMAB, HYALURONIDASE IN CYCLOPHOSPHAMIDE 100 MG INJ IN INJ, CYCLOPHOSPHAMIDE, NOS Rosalio Amaral MD [facility] [place] [address] Anc Hem/Onc Scenery Batool DEPT CLOSED - 07/26/23 [address] [place] [address] Referral ID Status Reason Start Date Expiration Date V isits Requested Visits Authorized [id number] Authorized 10/21/2023 10/21/2024 999 999 Encounter Details Date Type Department Care Team (Latest Contact Info) Description 01/16/2024 1:00 PM EDT Hem/Onc Treatment Hematology/Oncolog y Treatment, [place] [address] [place] [address] Batool, Chair 6 Hem Onc Scenery [address] [place] [address] Lambda light chain myeloma (HCC)*; AL amyloidosis (HCC); Encounter for antineoplastic chemotherapy Allergies Active Allergy Reactions Criticality Noted Date Comments Atorvastatin Muscle pain High 03/30/2019 Ezetimibe Muscle pain High 01/25/2020 documented as of this encounter (statuses as of 02/19/2024) Medications Medication Sig Dispensed Refills Start Date End Date Status NSS 0.9 % SOLN with daratumumab 400 MG/20ML SOLN 16 mg/kgIndications:e very 4 weeks Administer intravenously every 14 days. Active CPAP every night at bedtime. Active oxygen IN GAS Use 2 L/min(Oxygen) as directed at bedtime. 1 Each 1 Active WHI Solutionuch Ultra Blue In Vitro Strip (Glucose Blood)Indications: [...] Active Additional Information Patient not taking.Reported on 12/16/2023 Finasteride 5 MG Oral Tablet (Proscar) TAKE [...] mL 3 3 06/14/20 24 Active Pen [place] 32G X 4 MM Use as directed. 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 As needed.. 4 Active oxyCODONE HCl 5 MG Oral Tablet (Oxy IR)Indications:Mul tiple myeloma in relapse ([facility]) [...] morning. 180 Capsule 1 4 Active Nystatin 137450 UNIT/ML Mouth/Throat SuspensionIndicati ons:Multiple myeloma in relapse ([facility]) [...] before bedtime. 180 Tablet 3 4 Active diphenhydrAMINE HCl 50 MG Oral Capsule (Benadryl) Take one 25 mg capsule by mouth one hour prior to Hizentra, 50 Capsule 2 3 01/19/20 24 Discontinu ed(Patient preference /discontin uation) EpiPen 2-Konstantin 0.3 MG/0.3ML Injection Solution Auto-injector For a severe reaction: Inject in outer thigh following instructions on package and go to the Emergency room. 2 Each 3 3 01/19/20 24 Discontinu ed(Patient preference /discontin uation) Prochlorperazine Maleate 10 MG Oral Tablet (Compazine)Indicat ions:Nausea and vomiting, unspecified vomiting type Take 1 Tablet by mouth every 6 hours as needed for Nausea. 40 Tablet 4 01/30/20 Discontinu ed(Refill) documented as of this encounter (statuses as of 02/19/2024) Active Problems Problem Noted Date Diagnosed Date [...] remission 06/14/2014 Overview: Dr Rodriges/ [facility] ADVANCE DIRECTIVE INFORMATION 10/13/2006 Overview: No, Advance Directive brochure offered , patient declined. Degeneration of lumbosacral intervertebral disc 02/19/2005 documented as of this encounter (statuses as of 02/19/2024) Resolved Problems Problem Noted Date Diagnosed Date [...] as of this encounter (statuses as of 02/19/2024) Immunizations Name Administration Dates Next Due COVID-19, [...] Sign Reading Time Taken Comments Blood Pressure 133/87 01/16/2024 1:05 PM EDT Pulse 90 01/16/2024 1:05 PM EDT Temperature 36.3 C (97.4 F) 01/16/2024 1:05 PM ED T Respiratory Rate 18 01/16/2024 1:05 PM EDT Oxygen Saturation 94% 01/16/2024 1:05 PM EDT Inhaled Oxygen Concentration - - Weight 65.2 kg (143 lb 12.8 oz) 01/16/2024 1:05 PM EDT Height - - Body Mass Index 21.24 12/29/2023 9:09 AM EDT documented in this encounter Nursing Notes * Ann Barnard RN - 01/16/2024 2:43 PM EDT Goals: Patient will remain free from injury. Possible barriers to meeting goals: ambulation with IV pole, benadryl pretreat may cause drowsiness, use of cane Stability of the patient: Moderately stable - low risk of patient condition declining or worsening Summary regarding today's goals: Met: Pt remained free of injury during treatment Patient tolerated treatment well and was discharged in stable condition. * Ann Barnard RN - 01/16/2024 1:32 PM EDT Chair 12 Pt arrives for chemo. He states he's feeling much better than he did when here last week. He deniesany dizziness or lightheadedness since receiving fluids last week. Chemotherapy/Immunotherapy agents: Cytoxan and DARZALEX Faspro Consent for chemotherapy drug treatment complete, dated, and signed? yes, date - 06/29/23 Treatment lab parameters met? Yes Has treatment weight changed > than 10%? No Treatment preauthorized? Yes VITALS Filed Vitals: 01/16/24 1305 BP: 133/87 Pulse: 90 Resp: 18 Temp: 36.3 C (97.4 F) TempSrc: Tympanic SpO2: 94% Weight: 65.2 kg (143 lb 12.8 oz) Urine protein: N/A Patient education completed for treatment? Yes Blood transfusion consent signed and complete? NA Return appointment scheduled? Yes Patient had provider visit today? No - [...] side effects during treatment. PRE-TREATMENT ASSESSMENT: NEURO: fatigue:rests as neededd CV/RESP: denies symptoms GI/: denies symptoms OTHER: denies any additional symptoms PAIN: 0 VAD accessed without difficulty, good blood return noted, flushed with NSS and fluids infusing. Safety and Risk for Injury Patient will remain free from injury. Ensure appropriate safety devices are available. Provide and maintain safe environment. documented in this encounter Plan of Treatment Upcoming Encounters Date Type Department Care Team (Late st Contact Info) Description 03/16/2024 8:30 AM EDT Anticoagulation Pharmacy, [address] [place] [address] [place] [address] 03/16/2024 2:00 PM EDT Telemedicine Hematology Oncology [facility] Tyree UGARTE [address] [facility] [place] [address] Thierno Patel PA-C [address] [facility] [place] [address] 04/06/2024 9:30 AM EDT Office Visit Cardiology, [facility] 132 [facility] [place] [address] Beth Salter CRNP [address] [place] [address] [place] [address] 04/16/2024 2:30 PM EDT Telemedicine Hematology Oncology [facility] Tyree UGARTE [address] [facility] [place] [address] Rosalio Amaral MD [address] [facility] [place] [address] 04/18/2024 10:00 AM EDT Home Visit [facility] at [place], [facility] 132 [facility] [place] [address] Sulma Seth, BOBBY [address] [place] [address] 04/19/2024 9:30 AM EDT Office Visit Cardiology [address] [place] [address] Tim Ruiz PA-C [address] [place] [address] 05/15/2024 2:00 PM EDT [facility] [address] [place] [address] Thierno Patel PA-C [address] [place] [address] 06/20/2024 3:00 PM EDT [facility] [address] [place] [address] Rosalio Amaral MD [address] [place] [address] 10/30/2024 1:45 PM EST Office Visit Urology, [facility] 132 [place] [address] Devyn Paniagua MD [address] [place] [address] [place] [address] 01/01/2025 10:20 AM EDT Office Visit Otolaryngology [facility] 132 [place] [address] Haley Aguero PA-C 132 [place] [address] Health Maintenance Due Date Last Done Comments [...] Additional history exists CKD HGB USE SMARTSET 09656 01/26/202501/26, 01/27/2024, 01/16/2024, Additional history exists CKD PHOS USE SMARTSET 70683 02/12/2025 06/0 11/2023, 01/27/2024, 01/16/2024, Additional history [...] this encounter Medical Devices Implanted Type Area Cardiology Physician Assistant Device Identifier Shelf Expiration Date Model / Serial / Lot Port Power Mri W/8fr Cath - [id number] Implanted:Qty: 1 on 09/26/2020 by Simone Michelle MD at OR [facility] Right: Chest CR BARD : PERIPHERAL VASCULAR 10/12/2021 [id number] / / [id number] Description:right IJ Lens Intraoc 19.0 - [id number] - [id number] Implanted:Qty: 1 on 02/03/2021 by Chris Sexton MD at OR [facility] Right: Eye BAUSCH [employer] LOMB 09/11/2025 [id number] / [id number] / Lens Intraoc 19.0 - [id number] - [id number] Implanted:Qty: 1 on 02/24/2021 by Chris Sexton MD at OR [facility] Left: Eye BAUSCH & LOMB 10/12/2025 [id number] / [id number] / [id number] System Urolift - [id number] Implanted:Qty: 2 on 03/17/2023 by Devyn Paniagua MD at OR [facility] N/A: Urethra [employer] 11/18/2023 [id number] / / [id number] System Urolift - [id number] Implanted:Qty: 3 on 03/17/2023 by Devyn Paniagua MD at OR [facility] N/A: Urethra [employer] 11/03/2023 [id number] / / [id number] documented as of this encounter Visit Diagnoses [...] 650 mg 650 mg, Oral, ONCE, On Tue01/16/24 at 1345, For 1 dose, Maximum of 4 grams (4000 mg) per day. Given 01/16/2024 1:37 PM EDT 650 mg cycloPHOSphamide (Cytoxan) 500 mg in NSS 250 mL infusion 500 mg, IV Piggyback, at 555 mL/hr Administer over 30 Minutes, Cyclophosphamide doses over 1g should be in 500 mL. May extend infusion to 1 hour if not tolerated., ONCE, 1 dose, On Tue01/16/24 at 1345 Start Infusion 01/16/2024 2:02 PM EDT 500 mg 555 mL/hr Daratumumab-hyaluronida [facility] (Darzalex Faspro) 1800 mg-99905 units/ 15 ml subcut inj 15 mL, Subcutaneous, ONCE, On Tue01/16/24 at 1515, For 1 dose, Inject subcutanteously into abdomen over 3 to 5 minutes Given 01/16/2024 2:02 PM EDT 15 mL Abdomen Right Lower dexAMETHasone (Decadron) tab 20 mg 20 mg, Oral, ONCE, On Tue01/16/24 at 1415, For 1 dose Given 01/16/2024 1:37 PM EDT 20 mg diphenhydrAMINE (Benadryl) cap 25 mg 25 mg, Oral, ONCE, On Tue01/16/24 at 1345, For 1 dose Given 01/16/2024 1:37 PM EDT 25 mg Famotidine (Pepcid) tab 10 mg 10 mg, Oral, ONCE, On Tue01/16/24 at 1345, For 1 dose Given 01/16/2024 1:37 PM EDT 10 mg hEParin 100 UNIT/ML Lock Flush inj 500 Units 500 Units (5 mL), IV Lock, PRN Other, IV Flush, Starting on Tue01/16/24 at 1307, Until Tue01/16/24 at 1845, For 24 hours, Do not flush if lock, PICC, or central line not in place; IV infusing or unable to flush. Given 01/16/2024 2:35 PM EDT 500 Units NSS infusion 500 mL, Intravenous, at 50 mL/hr, CONTINUOUS, Starting on Tue01/16/24 at 1415, Until Tue01/16/24 at 1845 Start Infusion 01/16/2024 1:15 PM EDT 500 mL 50 mL/hr sodium chloride 0.9 % flush central line 10 mL 10 mL, IV Push, PRN Other, IV Flush, Starting on 01/16/24 at 1307, Until Tue01/16/24 at 1845, For 24 hours, Do not flush if lock, PICC, or central line not in place; IV infusing or unable to flush. Given 01/16/2024 2:34 PM EDT 10 mL documented in this encounter [...] and were consensually agreed upon. Care Teams Adventure Therapist Relationship Specialty Start Date End Date Jaime Garcia MD [address] [place] [address] [place] [phone] PCP - General Family Medicine 10/15/20 documented as of this encounter
--- OUTSIDE RECORDS SUMMARY | 2024-05-13 06:06 | External Medical Summary | Summary of Care ---
Author Name Unknown Organization [facility] Address [address] [place] [address] Phone [phone] Care Team Providers Care Certified Teacher Assistant Name Role Phone Jaime Garcia MD Primary Care Provide r Reason for Visit * Reason Comments Chemotherapy Cytoxan/Darzalex Fas pro * Episode Based Medications (Routine) - Authorized Specialty Diagnoses / Procedures Referred By Contbianca t Referred To Contact Diagnoses Lambda light chain myeloma (HCC) AL amyloidosis (HCC) Procedures [place] DARATUMUMAB, HYALURONIDASE [place] CYCLOPHOSPHAMIDE 100 MG INJ [place] INJ, CYCLOPHOSPHAMIDE, NOS Rosalio Amaral MD [facility] [place] [address] Anc Hem/Onc Scenery Batool DEPT CLOSED - 07/26/23 [address] [place] [phone] Referral ID Status Reason Start Date Expiration Date V isits Requested Visits Authorized [id number] Authorized 10/21/2023 10/21/2024 999 999 Encounter Details Date Type Department Care Team (Latest Contact Info) Description 01/16/2024 1:00 PM EDT Hem/Onc Treatment Hematology/Oncolog y Treatment, [place] [address] [place] [address] Bat[place], [...] directed at bedtime. 1 Each 1 Active TC Website Promotionsuch Ultra Blue In Vitro Strip (Glucose Blood)Indications: [...] mL 3 3 06/14/20 24 Active Pen [place] 32G X 4 MM Use as directed. [...] (Coumadin)Indicati ons:Atrial fibrillation, unspecified type ([facility]),Anticoagulat ion management encounter,MCFP current use of anticoagulant therapy,Paroxysmal atrial fibrillation ([facility]) Take up to one tablet by mouth daily as directed by anticoagulation clinic 90 Tablet 3 4 Active Dapsone 25 MG Oral TabletIndications: Multiple myeloma in relapse ([facility]) TAKE ONE TABLET BY MOUTH EVERY [...] morning. 180 Capsule 1 4 Active Nystatin 333820 UNIT/ML Mouth/Throat SuspensionIndicati ons:Multiple myeloma in relapse ([facility]) [...] 03/16/2024 8:30 AM EDT Anticoagulation Pharmacy, [address] [place] [address] [place] [address] 03/16/2024 2:00 PM EDT Telemedicine Hematology Oncology Cancer Center Tyree UGARTE [address] [facility] [place] [address] Thierno Patel PA-C [address] [facility] [place] [address] 04/06/2024 9:30 AM EDT Office Visit Cardiology, [facility] 132 [facility] [place] [address] Beth Salter CRNP [address] [place] [address] [place] [address] 04/16/2024 2:30 PM EDT Telemedicine Hematology [facility]cology [facility] [address] [facility] [address] Rosalio [facility]al [facility] [address] [facility] [address] 04/18/2024 10:00 AM EDT [facility] Visit [facility] [place], [facility] 132 [facility] [place] [address] Sulma Seth, BOBBY 132 [place] [address] 04/19/2024 9:30 AM EDT Office Visit Cardiology [address] [place] [address] Tim Ruiz PA-C [address] [place] [address] 05/15/2024 2:00 PM EDT [facility]med[facility] [address] [place] [address] Thierno Patel PA-C [address] [place] [address] 06/20/2024 3:00 PM EDT [facility] [address] [place] [address] Rosalio Amaral MD [address] [place] [address] 10/30/2024 1:45 PM EST Office Visit Urology, [facility] 132 [place] [address] Devyn Paniagua MD [address] [facility] 270 [place] [address] 01/01/2025 10:20 AM EDT Office Visit Otolaryngology [facility] 132 [place] [address] Haley Aguero PA-C 132 [place] [address] Health Maintenance Due Date Last Done Comments [...] Additional history exists CKD HGB USE SMARTSET 73127 01/26/202501/26, 01/27/2024, 01/16/2024, Additional history exists CKD PHOS USE SMARTSET 79182 02/12/2025 06/0 11/2023, 01/27/2024, 01/16/2024, Additional history [...] this encounter Medical Devices Implanted Type Area Driver Trainee Device Identifier Shelf Expiration Date Model / Serial / Lot Port Power Mri W/8fr Cath - [id number] Implanted:Qty: 1 on 09/26/2020 by Simone Michelle MD at OR [facility] Right: Chest CR BARD : PERIPHERAL VASCULAR 10/12/2021 [id number] / / [id number] Description:right IJ Lens Intraoc 19.0 - [id number] - [id number] Implanted:Qty: 1 on 02/03/2021 by Chris Sexton MD at OR [facility] Right: Eye BAUSCH [employer] LOMB 09/11/2025 [id number] / [id number] / Lens Intraoc 19.0 - [id number] - [id number] Implanted:Qty: 1 on 02/24/2021 by Chris Sexton MD at OR [facility] Left: Eye BAUSCH & LOMB 10/12/2025 [id number] / [id number] / [id number] System Urolift - [id number] Implanted:Qty: 2 on 03/17/2023 by Devyn Paniagua MD at OR [facility] N/A: Urethra [employer] 11/18/2023 [id number] / / [id number] System Urolift - [id number] Implanted:Qty: 3 on 03/17/2023 by Devyn Paniagua MD at OR [facility] N/A: Urethra [employer] 11/03/2023 PX366-3 / / [id number] documented as of this encounter Visit Diagnoses [...] PM EDT 500 mg 555 mL/hr Daratumumab-hyaluronida se-fij (Darzalex Faspro) 1800 mg-83963 units/ 15 ml subcut inj 15 mL, [...] and were consensually agreed upon. Care Teams Certified Teacher Assistant Relationship Specialty Start Date End Date Jaime Garcia MD [address] [place] [address] [place] [phone] PCP - General Family Medicine 10/15/20 documented as of this encounter
--- OUTSIDE RECORDS SUMMARY | 2024-05-13 06:06 | External Medical Summary | Summary of Care ---
Author Name Unknown Organization [facility] Address [address] [place] [address] Phone [phone] Care Team Providers Care Assistant To The Dean Name Role Phone Jaime Garcia MD Primary Care Provide r Reason for Referral * Evaluate & Treat - Unlimited Visits (Within 10 days (routine)) - Authorized Specialty Diagnoses / Procedures Referred By Contact Referred To Contact Cardiac Electrophysiology / Cardiology Diagnoses Cardiac amyloidosis (HCC) NSVT (nonsustained ventricular tachycardia) (HCC) Beth Gibbs CRNP [address] [place] [address] Referral ID Status Reason Start Date Expiration Date Visits Requested Visits Authorized [id number] Authorized Specialty Services Required 02/10/2024 999 999 Question Answer Referral Priority Within 10 days (routine) Where should this appointment be scheduled? [place] Comments 38 beat run of [place]- cardiac Amyloid. Known to Dr. Dee Encounter Details Date Type Department Care Team (Late st Contact Info) Description 02/10/2024 Telephone Cardiology, [facility] [address] [place] [address] Beth Gibbs CRNP [address] [facility] [place] [address] Allergies Active Allergy Reactions Criticality Noted Date Comments Atorvastatin Muscle pain High 03/30/2019 Ezetimibe Muscle pain High 01/25/2020 documented as of this encounter (statuses as of 02/14/2024) Medications Medication Sig Dispensed Refills Start Date End Date Status NSS 0.9 % SOLN with daratumumab 400 MG/20ML SOLN 16 mg/kgIndications:e very 4 weeks Administer intravenously every 14 days. Active CPAP every night at bedtime. Active oxygen IN GAS Use 2 L/min(Oxygen) as directed at bedtime. 1 Each 1 Active OneBlueWareuch Ultra Blue In Vitro Strip (Glucose Blood)Indications: [...] mL 3 3 06/14/20 24 Active Pen [place] 32G X 4 MM Use as directed. [...] type ([facility]),Anticoagulat ion management encounter,assisted current use of anticoagulant [...] morning. 180 Capsule 1 4 Active Nystatin 491658 UNIT/ML Mouth/Throat SuspensionIndicati ons:Multiple myeloma in relapse [...] as of this encounter (statuses as of 02/14/2024) Active Problems Problem Noted Date Diagnosed Date [...] as of this encounter (statuses as of 02/14/2024) Resolved Problems Problem Noted Date Diagnosed Date [...] as of this encounter (statuses as of 02/14/2024) Immunizations Name Administration Dates Next Due COVID-19, [...] 02/10/2024 4:24 PM EDT Sent patient a Borderfree message to make aware. Awaiting reply to [...] Care Team (Late st Contact Info) Description 02/15/2024 1:30 PM EDT Telemedicine Hematology [facility] Tyree UGARTE [address] [place] [address] Rosalio Amaral MD [address] [place] [address] 03/16/2024 8:30 AM EDT Anticoagulation Pharmacy, [address] [place] [address] [place] [address] 03/16/2024 2:00 PM EDT Telemedicine Hematology [facility]cology [facility] Tyree UGARTE [address] [place] [address] Thierno Patel PA-C [address] [place] [address] 04/06/2024 9:30 AM EDT Office Visit Cardiology, [facility] 132 [facility] [place] [address] Beth Salter CRNP [address] [place] [address] [place] [address] 04/16/2024 2:30 PM EDT Telemedicine Hematology Oncology [facility] Tyree UGARTE [address] [place] [address] Rosalio Amaral MD [address] [place] [address] 04/18/2024 10:00 AM EDT Home Visit [facility] [address] [place] [address] Sulma Seth, RN [address] [place] [address] 04/19/2024 9:30 AM EDT Office Visit Cardiology [address] [place] [address] Tim Ruiz PA-C [address] [place] [address] 05/15/2024 2:00 PM EDT [facility] [address] [place] [address] Thierno Patel PA-C [address] [place] [address] 06/20/2024 3:00 PM EDT Telemedicine [facility] [address] [place] [address] Rosalio Amaral MD [address] [place] [address] 10/30/2024 1:45 PM EST Office Visit Urology, [facility] [address] [place] [address] Devyn Paniagua MD [address] [address] [place] [address] 01/01/2025 10:20 AM EDT Office Visit Otolaryngology [facility] [address] [place] [address] Haley Aguero PA-C [address] [place] [address] Scheduled Orders Name Type Priority Associated Diagnoses [...] Additional history exists CKD HGB USE SMARTSET 57355 01/26/202501/26, 01/27/2024, 01/16/2024, Additional history exists CKD PHOS USE SMARTSET 50833 02/12/2025 06/0 11/2023, 01/27/2024, 01/16/2024, Additional history [...] this encounter Medical Devices Implanted Type Area Insurance Case Manager Device Identifier Shelf Expiration Date Model / Serial / Lot Port Power Mri W/8fr Cath - [id number] Implanted:Qty: 1 on 09/26/2020 by Simone Michelle MD at OR [facility] Right: Chest CR BARD : PERIPHERAL VASCULAR 10/12/2021 [id number] / / [id number] Description:right IJ Lens Intraoc 19.0 - [id number] - [id number] Implanted:Qty: 1 on 02/03/2021 by Chris Sexton MD at OR [facility] Right: Eye BAUSCH & LOMB 09/11/2025 [id number] / [id number] / Lens Intraoc 19.0 - [id number] - [id number] Implanted:Qty: 1 on 02/24/2021 by Chris Sexton MD at OR [facility] Left: Eye BAUSCH & LOMB 10/12/2025 [id number] / [id number] System Urolift - [id number] Implanted:Qty: 2 on 03/17/2023 by Devyn Paniagua MD at OR [facility] N/A: Urethra [employer] 11/18/2023 DS427-7 / / [id number] System Urolift - [id number] Implanted:Qty: 3 on 03/17/2023 by Devyn Paniagua MD at OR [facility] N/A: Urethra [employer] 11/03/2023 [id number] / / [id number] documented as of this encounter Visit Diagnoses [...] were consensually agreed upon. Care Teams Assistant To The Dean Relationship Specialty Start Date End Date Jaime Garcia MD [address] [place] [address] [place] [address] PCP - General Family Medicine 10/15/20 documented as of this encounter
--- OUTSIDE RECORDS SUMMARY | 2024-05-13 06:06 | External Medical Summary | Summary of Care ---
Author Name Unknown Organization [facility] Address [address] [place] [address] Phone [phone] Care Team Providers Care Splicer Machine Operator Name Role Phone Jaime Garcia MD Primary Care Provide r Encounter Details Date Type Department Care Team (Late st Contact Info) Description 02/14/2024 Telephone [facility] Hematology [address] [place] [address] Anna Daniel, RN Allergies Active Allergy Reactions Criticality Noted Date Comments Atorvastatin Muscle pain High 03/30/2019 Ezetimibe Muscle pain High 01/25/2020 documented as of this encounter (statuses as of 02/15/2024) Medications Medication Sig Dispensed Refills Start Date [...] mL 3 3 06/14/20 24 Active Pen [place] 32G X 4 MM Use as directed. [...] without long-term current use of insulin ([facility]) Use as directed to check blood [...] ns:Atrial fibrillation, unspecified type (HCC),Anticoagulati on management encounter,assisted current use of anticoagulant therapy,Paroxysmal [...] A1c goal of less than 7.0% ([facility]) Take 2 Tablets by mouth in the morning. 180 Tablet 1 4 Active DULoxetine HCl 20 MG Oral Capsule Delayed Release Particles (Cymbalta) Take 2 Capsules by mouth in the morning. 180 Capsule 1 4 Active Nystatin 315488 UNIT/ML Mouth/Throat SuspensionIndicatio ns:Multiple myeloma in relapse ([facility]) Swish and swallow 5 mL in the morning and 5 mL at noon and 5 mL in the evening and 5 mL before bedtime. 60 mL 1 4 Active Magnesium Chloride 64 MG Oral Tablet Delayed Release (Mag64)Indications: Multiple myeloma in relapse ([facility]) Take 1 Tablet by mouth in the morning and 1 Tablet before bedtime. 180 Tablet 3 4 Active Prochlorperazine Maleate 10 MG Oral Tablet (Compazine)Indicati ons:Nausea and vomiting, unspecified vomiting type TAKE ONE TABLET BY MOUTH EVERY SIX HOURS NEEDED FOR NAUSEA 40 Tablet 4 Active documented as of this encounter (statuses as of 02/15/2024) Active Problems Problem Noted Date Diagnosed Date [...] Multiple myeloma without remission 06/14/2014 Overview: Dr Rodrgies/ [facility] ADVANCE DIRECTIVE INFORMATION 10/13/2006 Overview: No, Advance Directive brochure offered , patient declined. Degeneration of lumbosacral intervertebral disc 02/19/2005 documented as of this encounter (statuses as of 02/15/2024) Resolved Problems Problem Noted Date Diagnosed Date [...] as of this encounter (statuses as of 02/15/2024) Immunizations Name Administration Dates Next Due COVID-19, [...] encounter Miscellaneous Notes * Telephone Encounter - Rosaline Kemp, DEBBY - 02/14/2024 4:33 PM EDT [facility] - Benefits Investigation Response A benefits investigation has been completed for Juan. Patient: Jerardo Ochoa Deductible/cost information: [facility] can service this patient with an authorizationon file. Once final orders are received we will submit for authorization. Please note: This is an estimate that was completed when [facility] submitted a test claim to the patient's insurance. It is not reflective of the final cost and is subject to change based on the authorization received. documented in this encounter Plan of Treatment Upcoming Encounters Date Type Department Care Team (Late st Contact Info) Description 03/16/2024 8:30 AM EDT Anticoagulation Pharmacy, [address] [place] [address] [place] [address] 03/16/2024 2:00 PM EDT Telemedicine H[facility] [address] [facility] [place] [address] Thierno Patel PA-C [address] [facility] [place] [address] 04/06/2024 9:30 AM EDT Office Visit Cardiology, [facility] [address] [facility] [place] [address] Beth Salter CRNP [address] [place] [address] [place] [address] 04/16/2024 2:30 PM EDT Telemedicine Hematology [facility]TE [address] [facility] [place] [address] Rosalio Amaral MD [address] [facility] [place] [address] 04/18/2024 10:00 AM EDT [facility] Visit [facility] [address] [place] [address] Sulma Seth, RN [address] [place] [address] 04/19/2024 9:30 AM EDT Office Visit Cardiology [address] [place] [address] Tim Ruiz PA-C [address] [place] [address] 05/15/2024 2:00 PM EDT [facility] [address] [place] [address] Thierno Patel PA-C [address] [place] [address] 06/20/2024 3:00 PM EDT [facility]medicine [facility] [address] [place] [address] Rosalio Amaral MD [address] [place] [address] 10/30/2024 1:45 PM EST Office Visit Urology, [facility] [address] [place] [address] Devyn Paniagua MD [address] [place] [address] [place] [address] 01/01/2025 10:20 AM EDT Office Visit Otolaryngology [facility] [address] [place] [address] Haley Aguero PA-C [address] [place] [address] Health Maintenance Due Date Last Done Comments [...] Additional history exists CKD HGB USE SMARTSET 30200 01/26/202501/26, 01/27/2024, 01/16/2024, Additional history exists CKD PHOS USE SMARTSET 07341 02/12/2025 06/0 11/2023, 01/27/2024, 01/16/2024, Additional history [...] this encounter Medical Devices Implanted Type Area Chaser Tar Device Identifier Shelf Expiration Date Model / Serial / Lot Port Power Mri W/8fr Cath - [id number] Implanted:Qty: 1 on 09/26/2020 by Simone Michelle MD at OR [facility] Right: Chest CR BARD : PERIPHERAL VASCULAR 10/12/2021 [id number] / / [id number] Description:right IJ Lens Intraoc 19.0 - [id number] - [id number] Implanted:Qty: 1 on 02/03/2021 by Chris Sexton MD at OR [facility] Right: Eye BAUSCH & LOMB 09/11/2025 [id number] / [id number] / Lens Intraoc 19.0 - [id number] - [id number] Implanted:Qty: 1 on 02/24/2021 by Chris Sexton MD at OR [facility] Left: Eye BAUSCH & LOMB 10/12/2025 [id number] / [id number] / [id number] System Urolift - [id number] Implanted:Qty: 2 on 03/17/2023 by Devyn Paniagua MD at OR [facility] N/A: Urethra [employer] 11/18/2023 [id number] / / [id number] System Urolift - [id number] Implanted:Qty: 3 on 03/17/2023 by Devyn Paniagua MD at OR [facility] N/A: Urethra [employer] 11/03/2023 [id number] / / [id number] documented as of this encounter Additional Health [...] and were consensually agreed upon. Care Teams Splicer Machine Operator Relationship Specialty Start Date End Date Jaime Garcia MD [address] [place] [address] [place] [address] PCP - General Family Medicine 10/15/20 documented as of this encounter
--- OUTSIDE RECORDS SUMMARY | 2024-05-13 06:06 | External Medical Summary | Summary of Care ---
Author Name Unknown Organization [facility] Address [address] [place] [address] Phone [phone] Care Team Providers Care Diversified Crops Ii Farmworker Name Role Phone Jaime Garcia MD Primary Care Provide r Reason for Visit * Reason Comments Chemotherapy Cytoxan/Darzalex Fas pro * Episode Based Medications (Routine) - Authorized Specialty Diagnoses / Procedures Referred By Contbianca t Referred To Contact Diagnoses Lambda light chain myeloma (HCC) AL amyloidosis (HCC) Procedures OR DARATUMUMAB, HYALURONIDASE OR CYCLOPHOSPHAMIDE 100 MG INJ OR INJ, CYCLOPHOSPHAMIDE, NOS Rosalio Amaral MD [facility] [place] [facility] [place] [address] Anc Hem/Onc Scenery Batool DEPT CLOSED - 07/26/23 [address] [place] [address] Referral ID Status Reason Start Date Expiration Date V isits Requested Visits Authorized [id number] Authorized 10/21/2023 10/21/[phone] Encounter Details Date Type Department Care Team (Latest Contact Info) Description 01/16/2024 1:00 PM EDT Hem/Onc Treatment Hematology/Oncolog y Treatment, [place] [address] [place] [address] [place], [...] directed at bedtime. 1 Each 1 Active Exosome Diagnosticsuch Ultra Blue In Vitro Strip (Glucose Blood)Indications: [...] mL 3 3 06/14/20 24 Active Pen [place] 32G X 4 MM Use as directed. [...] Oral Tablet (Coumadin)Indicati ons:Atrial fibrillation, unspecified type ([facility]),Anticoagulat ion management encounter,[facility] current use of anticoagulant therapy,Paroxysmal atrial fibrillation ([facility]) Take up to one tablet by mouth daily as directed by anticoagulation clinic 90 Tablet 3 4 Active Dapsone 25 MG Oral TabletIndications: Multiple myeloma in relapse ([facility]) TAKE ONE TABLET BY MOUTH EVERY DAY 90 Tablet 1 4 10/27/19 25 Active Torsemide 10 MG Oral Tablet (Demadex)Indicatio ns:takes extra tab for swelling, wt gain Take 1 Tablet by mouth in the morning. As needed.. 4 Active oxyCODONE HCl 5 MG Oral Tablet (Oxy IR)Indications:Mul tiple myeloma in relapse ([facility]) Take [...] morning. 180 Capsule 1 4 Active Nystatin 055203 UNIT/ML Mouth/Throat SuspensionIndicati ons:Multiple myeloma in relapse ([facility]) Swish [...] Description 03/16/2024 8:30 AM EDT Anticoagulation Pharmacy, [address] [place] [address] [place] [address] 03/16/2024 2:00 PM EDT Telemedicine Hematology [facility] Tyree UGARTE [address] [facility] [place] [address] Thierno Patel PA-C [address] [facility] [place] [address] 04/06/2024 9:30 AM EDT Office Visit Cardiology, [facility] [address] [facility] [place] [address] Beth Salter CRNP [address] [place] [address] [place] [address] 04/16/2024 2:30 PM EDT Telemedicine H[facility]ology [facility]ARTE [address] [facility] [place] [address] Rosalio [facility]al MD [address] [facility] [place] [address] 04/18/2024 10:00 AM EDT [facility] Visit [facility] [place] [address] [facility] [place] [address] Sulma Seth, BOBBY [address] [place] [address] 04/19/2024 9:30 AM EDT Office Visit Cardiology [address] [place] [address] Tim Ruiz PA-C [address] [place] [address] 05/15/2024 2:00 PM EDT Telemedicine [facility] [address] [place] [address] Thierno Patel PA-C [address] [place] [address] 06/20/2024 3:00 PM EDT [facility] [address] [place] [address] Rosalio Amaral MD [address] [place] [address] 10/30/2024 1:45 PM EST Office Visit Urology, [facility] [address] [place] [address] Devyn Paniagua MD 27 [facility] [address] [place] [address] 01/01/2025 10:20 AM EDT Office Visit Otolaryngology [facility] [address] [place] [address] Haley Aguero PA-C [address] [place] [address] Health Maintenance Due Date Last Done Comments [...] Additional history exists CKD HGB USE SMARTSET 32789 01/26/202501/26, 01/27/2024, 01/16/2024, Additional history exists CKD PHOS USE SMARTSET 78372 02/12/2025 06/0 11/2023, 01/27/2024, 01/16/2024, Additional history [...] this encounter Medical Devices Implanted Type Area Rim Turning Machine Operator Device Identifier Shelf Expiration Date Model / Serial / Lot Port Power Mri W/8fr Cath - [id number] Implanted:Qty: 1 on 09/26/2020 by Simone Michelle MD at OR [facility] Right: Chest CR BARD : PERIPHERAL VASCULAR 10/12/2021 [id number] / / [id number] Description:right IJ Lens Intraoc 19.0 - [id number] - [id number] Implanted:Qty: 1 on 02/03/2021 by Chris Sexton MD at OR [facility] Right: Eye BAUSCH & LOMB 09/11/2025 [id number] / [id number] / Lens Intraoc 19.0 - [id number] - [id number] Implanted:Qty: 1 on 02/24/2021 by Chris Sexton MD at OR [facility] Left: Eye BAUSCH & LOMB 10/12/2025 [id number] / [id number] / [id number] System Urolift - [id number] Implanted:Qty: 2 on 03/17/2023 by Devyn Paniagua MD at OR [facility] N/A: Urethra [employer] 11/18/2023 [id number] / / [id number] System Urolift - [id number] Implanted:Qty: 3 on 03/17/2023 by Devyn Paniagua MD at OR [facility] N/A: Urethra [employer] 11/03/2023 [id number] / / [id number] documented as of this encounter Visit Diagnoses [...] 555 mL/hr Daratumumab-hyaluronida se-fij (Darzalex Faspro) 1800 mg-28093 units/ 15 ml subcut inj 15 mL, [...] and were consensually agreed upon. Care Teams Diversified Crops Ii Farmworker Relationship Specialty Start Date End Date Jaime Garcia MD [address] [place] [address] [place] [phone] PCP - General Family Medicine 10/15/20 documented as of this encounter
--- OUTSIDE RECORDS SUMMARY | 2024-05-13 06:06 | External Medical Summary | Summary of Care ---
Author Name Unknown Organization [facility] Address [address] [place] [address] Phone [phone] Care Team Providers Care Grain Sacker Name Role Phone Jaime Garcia MD Primary Care Provide r Reason for Visit * Reason Comments Chemotherapy Darzalex Faspro/ Cyt oxan/ HOLD Xgeva * Episode Based Medications (Routine) - Authorized Specialty Diagnoses / Procedures Referred By Contac t Referred To Contact Diagnoses Lambda light chain myeloma (HCC) AL amyloidosis (HCC) Procedures CO DARATUMUMAB, HYALURONIDASE CO CYCLOPHOSPHAMIDE 100 MG INJ CO INJ, CYCLOPHOSPHAMIDE, NOS Rosalio Amaral MD [address] [place], [place] [address] [address] Anc Hem/Onc Sc[facility] DEPT CLOSED - 07/26/23 [address] [place] [address] Referral ID Status Reason Start Date Expiration Date V isits Requested Visits Authorized [id number] Authorized 10/21/2023 10/21/2024 [id number] Encounter Details Date Type Department Care Team (Latest Contact Info) Description 12/30/2023 1:45 PM EDT Hem/Onc Treatment Hematology/Oncolog y Treatment, [place] [address] [place] [address] [place], Chair 2 Hem Onc Scenery [address] [place] [address] Lambda light chain myeloma (HCC)*; AL amyloidosis (HCC); Encounter for antineoplastic chemotherapy Allergies Active Allergy Reactions Criticality Noted Date Comments Atorvastatin Muscle pain High 03/30/2019 Ezetimibe Muscle pain High 01/25/2020 documented as of this encounter (statuses as of 02/20/2024) Medications Medication Sig Dispensed Refills Start Date End Date Status NSS 0.9 % SOLN with daratumumab 400 MG/20ML SOLN 16 mg/kgIndications: every 4 weeks Administer intravenously every 14 days. Active CPAP every night at bedtime. Active oxygen IN GAS Use 2 L/min(Oxygen) as directed at bedtime. 1 Each 11/12/19 Active OneTouch Ultra Blue In Vitro Strip [...] DxE11.9. 100 Each 5 03/02/20 21 Active Acyclovir 400 MG Oral Tablet (Zovirax)Indicati ons:Lambda light chain myeloma (HCC) Take one tablet once daily 180 Tablet 3 12/15/19 22 Active Acetaminophen 325 MG Oral Tablet (Tylenol) Take two 325 mg tablets by mouth one hour prior to Hizentra. 30 Tablet 3 09/16/19 23 Active Dexamethasone 4 MG Oral Tablet [...] as needed for Pain, Severe. 10 Tablet 03/17/20 23 Active Additional Information Patient not taking.Reported on 12/16/2023 Finasteride 5 MG Oral Tablet (Proscar) TAKE 1 TABLET BY MOUTH IN THE MORNING 90 Tablet 3 04/12/20 23 024 Active Cholecalciferol 50 MCG (1999 UT) Oral [...] 6 mL 3 06/15/20 23 024 Active Pen [place] 32G X 4 MM Use as directed. [...] PM) 600 Tablet 3 09/02/20 23 Active Vemlidy 25 MG Oral Tablet (Tenofovir Alafenamide Fumarate) Take 1 tablet by mouth in the morning. 90 Tablet 1 09/09/20 23 Active Ondansetron HCl 8 MG Oral Tablet (Zofran)Indicatio ns:Nausea Take 1 Tablet by mouth every 8 hours as needed for Nausea. 30 Tablet 3 09/14/19 24 Active Ondansetron 4 MG Oral Tablet Disintegrating (Zofran) 08/08/20 23 Active Potassium Chloride ER 20 MEQ Oral Tablet Extended Release Take 1 Tablet by mouth in the morning. Active NSS 0.9 % SOLN 100 mL with cefTRIAXone 2 GM SOLR 2 g Administer 2 g intravenously daily. Active Warfarin Sodium 2.5 MG Oral Tablet (Coumadin)Indicat ions:Atrial fibrillation, unspecified type (HCC),Anticoagula tion management encounter,skilled nursing current use of anticoagulant therapy,Paroxysma l atrial fibrillation ([facility]) Take up to one tablet by mouth daily as directed by anticoagulation clinic 90 Tablet 3 10/28/19 24 Active Dapsone 25 MG Oral TabletIndications :Multiple myeloma in relapse ([facility]) TAKE ONE TABLET BY MOUTH EVERY DAY 90 Tablet 1 10/28/19 24 025 Active Torsemide 10 MG Oral Tablet (Demadex)Indicati ons:takes extra tab for swelling, wt gain Take 1 Tablet by mouth in the morning. As needed.. 11/21/19 24 Active oxyCODONE HCl 5 MG Oral Tablet (Oxy IR)Indications:Mu ltiple myeloma in relapse ([facility]) Take 1 Tablet by mouth every 4 hours as needed for breakthrough pain. 30 Tablet 11/23/19 24 Active Albuterol Sulfate HFA 108 (90 Base) MCG/ACT Inhalation Aerosol SolutionIndicatio ns:Acute bronchitis, antibiotics not indicated Inhale 2 Puffs by mouth every 6 hours as needed for Cough or Shortness of Breath. 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 480 mL 09/16/19 23 024 Discontinued Hizentra 2 GM/10ML Subcutaneous Solution (immune globulin human 20%) Patient is to subcutaneously inject one 2 gram vial plus one four gram vial for a total of 6 grams weekly after loading dose of 12 grams twice weekly x four weeks . 120 mL 12 09/16/19 23 024 Discontinued diphenhydrAMINE HCl 50 MG Oral Capsule (Benadryl) Take one 25 mg capsule by mouth one hour prior to Hizentra, 50 Capsule 2 09/16/19 23 024 Discontinued(Pa tient preference/disc ontinuation) EpiPen 2-Konstantin 0.3 MG/0.3ML Injection Solution Auto-injector For a severe reaction: Inject in outer thigh following instructions on package and go to the Emergency room. 2 Each 3 10/05/19 23 024 Discontinued(Pa tient preference/disc ontinuation) DULoxetine HCl 20 MG Oral Capsule Delayed Release Particles (Cymbalta) Take 2 Capsules by mouth in the morning. 180 Capsule 1 06/06/20 23 024 Discontinued(Re fill) metFORMIN HCl ER 500 MG Oral Tablet Extended Release 24 Hour (Glucophage XR)Indications:Ty pe 2 diabetes mellitus with hemoglobin A1c goal of less than 7.0% ([facility]) Take 2 Tablets by mouth in the morning. 180 Tablet 1 07/11/20 23 024 Discontinued(Re fill) Nystatin 997377 UNIT/ML Mouth/Throat SuspensionIndicat ions:Multiple myeloma in relapse ([facility]) Swish and swallow 5 mL in the morning and 5 mL at noon and 5 mL in the evening and 5 mL before bedtime. 60 mL 1 09/08/20 024 Discontinued(Re fill) Prochlorperazine Maleate 10 MG Oral Tablet (Compazine)Indica tions:Nausea and vomiting, unspecified vomiting type Take 1 Tablet by mouth every 6 hours as needed for Nausea. 40 Tablet 09/20/19 24 024 Discontinued(Re fill) Advanced Probiotic 10 Oral Capsule 1 Capsule in the morning. 08/18/20 23 024 Discontinued Allopurinol 100 MG Oral Tablet (Zyloprim)Indicat ions:Multiple myeloma in relapse (HCC) Take 1 Tablet by mouth in the morning. 30 Tablet 4 10/11/19 24 024 Discontinued Magnesium Chloride 64 MG Oral Tablet Delayed Release (Mag64)Indication s:Multiple myeloma in relapse (HCC) Take 1 Tablet by mouth in the morning and 1 Tablet before bedtime. 180 Tablet 3 11/10/19 24 024 Discontinued(Re fill) documented as of this encounter (statuses as of 02/20/2024) Active Problems Problem Noted Date Diagnosed Date [...] as of this encounter (statuses as of 02/20/2024) Resolved Problems Problem Noted Date Diagnosed Date [...] as of this encounter (statuses as of 02/20/2024) Immunizations Name Administration Dates Next Due COVID-19, [...] Sign Reading Time Taken Comments Blood Pressure 116/78 12/30/2023 1:32 PM EDT Pulse 91 12/30/2023 1:32 PM EDT Temperature 36.2 C (97.1 F) 12/30/2023 1:32 PM ED T Respiratory Rate 18 12/30/2023 1:32 PM EDT Oxygen Saturation 93% 12/30/2023 1:32 PM EDT Inhaled Oxygen Concentration - - Weight 63.8 kg (140 lb 9.6 oz) 12/30/2023 1:32 P M EDT Height - - Body Mass Index 20.76 12/29/2023 9:09 AM EDT documented in this encounter Nursing Notes * Ann Barnard RN - 12/30/2023 3:24 PM EDT Xgeva held due to low phosphorus level. Goals: Patient will remain free from injury. Possible barriers to meeting goals: ambulation with IV pole, benadryl pretreat may cause drowsiness, use of cane, hx of falls Stability of the patient: Moderately unstable - medium risk of patient condition declining or worsening Summary regarding today's goals: Met: Pt remained free of injury during treatment today Patient tolerated treatment well and was discharged in stable condition. * Ann Barnard RN - 12/30/2023 2:03 PM EDT Chair 12 Chemotherapy/Immunotherapy agents: Cytoxan/Darzalex Consent for chemotherapy drug treatment complete, dated, and signed? yes, date - 06/29/23 Treatment lab parameters met? Yes Has treatment weight changed > than 10%? No Treatment preauthorized? Yes VITALS Filed Vitals: 12/30/23 1332 BP: 116/78 Pulse: 91 Resp: 18 Temp: 36.2 C (97.1 F) TempSrc: Tympanic SpO2: 93% Weight: 63.8 kg (140 lb 9.6 oz) Urine protein: N/A Patient education completed for treatment? Yes Blood transfusion consent signed and complete? NA Return appointment scheduled? Yes Patient had provider visit today? No - If no provider visit must complete Pretreatment Assessment Functional Status: Functional status at today's visit: Ambulatory and [...] during treatment. PRE-TREATMENT ASSESSMENT: NEURO: fatigue:rests as needed CV/RESP: denies symptoms GI/: constipation: miralax with relief OTHER: denies any additional symptoms PAIN: 0 [...] 03/16/2024 8:30 AM EDT Anticoagulation Pharmacy, [address] [place] [address] [place] [address] 03/16/2024 2:00 PM EDT Telemedicine [facility]ology [facility] [place] [address] [facility] [place] [address] Thierno Patel PA-C [address] [facility] [place] [address] 04/06/2024 9:30 AM EDT Office Visit Cardiology, [facility] [address] [facility] [place] [address] Beth Salter CRNP [address] [place] [address] 04/16/2024 2:30 PM EDT Telemedicine H[facility]ology [facility] [place] [address] [place] [address] Rosalio Amaral MD [address] [place] [address] 04/18/2024 10:00 AM EDT [facility] Visit [facility] 132 [facility] [place] [address] Sulma Seth RN 132 [facility] [place] [address] 04/19/2024 9:30 AM EDT Office Visit Cardiology [address] [place] [address] Tim Ruiz PA-C [address] [facility] [place] [address] 05/15/2024 2:00 PM EDT Telemedicine H[facility]ology [facility] [place] [address] [place] [address] Thierno Patel PA-C [address] [place] [address] 06/20/2024 3:00 PM EDT Telemedicine [facility] [place] [address] [place] [address] Rosalio Amaral MD [address] [place] [address] 10/30/2024 1:45 PM EST Office Visit Urology, [facility] [address] [place] [address] Devyn Paniagua MD [address] [place] [address] [place] [address] 01/01/2025 10:20 AM EDT Office Visit Otolaryngology [facility] [address] [place] [address] Haley Aguero PA-C [address] [place] [address] Health Maintenance Due Date Last Done Comments [...] Additional history exists CKD HGB USE SMARTSET 12880 01/26/202501/26, 01/27/2024, 01/16/2024, Additional history exists CKD PHOS USE SMARTSET 69004 02/12/2025 06/0 11/2023, 01/27/2024, 01/16/2024, Additional history [...] this encounter Medical Devices Implanted Type Area Sole Cutter Device Identifier Shelf Expiration Date Model / Serial / Lot Port Power Mri W/8fr Cath - [id number] Implanted:Qty: 1 on 09/26/2020 by Simone Michelle MD at [facility] Right: Chest CR BARD : PERIPHERAL VASCULAR 10/12/2021 [id number] / / [id number] Description:right IJ Lens Intraoc 19.0 - [id number] - [id number] Implanted:Qty: 1 on 02/03/2021 by Chris Sexton MD at OR [facility] Right: Eye [employer] 09/11/2025 [id number] / [id number] / Lens Intraoc 19.0 - [id number] - [id number] Implanted:Qty: 1 on 02/24/2021 by Chris Sexton MD at OR [facility] Left: Eye [employer]OMB 10/12/2025 [id number] / [id number] / [id number] System Urolift - [id number] Implanted:Qty: 2 on 03/17/2023 by Devyn Paniagua MD at OR [facility] N/A: Urethra [employer] 11/18/2023 [id number] / / [id number] System Urolift - [id number] Implanted:Qty: 3 on 03/17/2023 by Devyn Paniagua MD at OR [facility] N/A: Urethra [employer] 11/03/2023 [id number] / / [id number] documented as of this encounter Visit Diagnoses [...] 650 mg 650 mg, Oral, ONCE, On Tue12/30/23 at 1400, For 1 dose, Maximum of 4 grams (4000 mg) per day. Given 12/30/2023 1:59 PM EDT 650 mg cycloPHOSphamide (Cytoxan) 500 mg in NSS 250 mL infusion 500 mg, IV Piggyback, at 500 mL/hr Administer over 30 Minutes, Cyclophosphamide doses over 1g should be in 500 mL. May extend infusion to 1 hour if not tolerated., ONCE, 1 dose, On Tue12/30/23 at 1415 Start Infusion 12/30/2023 2:38 PM EDT 500 mg 500 mL/hr Daratumumab-hyaluronida [facility] (Darzalex Faspro) 1800 mg-39907 units/ 15 ml subcut inj 15 mL, Subcutaneous, ONCE, On Tue12/30/23 at 1545, For 1 dose, Inject subcutanteously into abdomen over 3 to 5 minutes Given 12/30/2023 2:38 PM EDT 15 mL Abdomen Right Lower dexAMETHasone (Decadron) tab 20 mg 20 mg, Oral, ONCE, On Tue12/30/23 at 1400, For 1 dose Given 12/30/2023 1:58 PM EDT 20 mg diphenhydrAMINE (Benadryl) cap 25 mg 25 mg, Oral, ONCE, On Tue12/30/23 at 1400, For 1 dose Given 12/30/2023 1:58 PM EDT 25 mg Famotidine (Pepcid) tab 10 mg 10 mg, Oral, ONCE, On Tue12/30/23 at 1400, For 1 dose Given 12/30/2023 1:58 PM EDT 10 mg hEParin 100 UNIT/ML Lock Flush inj 500 Units 500 Units (5 mL), IV Lock, PRN Other, IV Flush, Starting on Tue12/30/23 at 1338, Until Tue12/30/23 at 1929, For 24 hours, Do not flush if lock, PICC, or central line not in place; IV infusing or unable to flush. Given 12/30/2023 3:14 PM EDT 500 Units NSS infusion 500 mL, Intravenous, at 50 mL/hr, CONTINUOUS, Starting on Tue12/30/23 at 1445, Until Tue12/30/23 at 1929 Start Infusion 12/30/2023 1:45 PM EDT 500 mL 50 mL/hr sodium chloride 0.9 % flush central line 10 mL 10 mL, IV Push, PRN Other, IV Flush, Starting on Tue12/30/23 at 1338, Until Tue12/30/23 at 1929, For 24 hours, Do not flush if lock, PICC, or central line not in place; IV infusing or unable to flush. Given 12/30/2023 3:13 PM EDT 10 mL documented in this [...] and were consensually agreed upon. Care Teams Grain Sacker Relationship Specialty Start Date End Date Jaime Garcia MD [address] [place] [address] [place] [phone] PCP - General Family Medicine 10/15/20 documented as of this encounter
--- OUTSIDE RECORDS SUMMARY | 2024-05-13 06:06 | External Medical Summary | Summary of Care ---
Author Name Unknown Organization [facility] Address [address] [place] [address] Phone [phone] Care Team Providers Care News Production Supervisor Name Role Phone Jaime Garcia MD Primary Care Provide r Encounter Details Date Type Department Care Team (Late st Contact Info) Description 02/20/2024 Population Health External Data Unspecified Department Allergies [...] mL 3 3 06/14/20 24 Active Pen [place] 32G X 4 MM Use as directed. [...] morning. 180 Capsule 1 4 Active Nystatin 413928 UNIT/ML Mouth/Throat SuspensionIndicatio ns:Multiple myeloma in relapse [...] 03/16/2024 8:30 AM EDT Anticoagulation Pharmacy, [address] [place] [address] [place] [address] 03/16/2024 2:00 PM EDT Telemedicine Hematology [facility] [place] [address] [place] [address] Thierno Patel PA-C [address] [place] [address] 04/06/2024 9:30 AM EDT Office Visit Cardiology, [facility] 132 [facility] [place] [address] Beth Salter CRNP [address] [place] [address] [place] [address] 04/16/2024 2:30 PM EDT Telemedicine Hematology Oncology [facility] [place] Tyree UGARTE [address] [place] [address] Rosalio Amaral MD [address] [place] [address] 04/18/2024 10:00 AM EDT Home Visit [facility] 132 [facility] [place] [address] Sulma Seth, RN 132 [facility] [place] [address] 04/19/2024 9:30 AM EDT Office Visit Cardiology [address] [place] [address] Tim Ruiz PA-C [address] [place] [address] 05/15/2024 2:00 PM EDT Telemedicine Hematology [facility]cology [facility] [place] Tyree UGARTE [address] [place] [address] Thierno Patel PA-C [address] [place] [address] 06/20/2024 3:00 PM EDT Telemedicine H[facility]ology [facility] [place] U[place]TE [address] [place] [address] Rosalio Amaral MD [address] [facility] [place] [address] 10/30/2024 1:45 PM EST Office Visit [facility]rology, [facility] [place] [address] Devyn Paniagua MD 27 [facility] [address] [place] [address] 01/01/2025 10:20 AM EDT Office Visit Otolaryngology [facility] 132 [facility] [place] [address] Haley Aguero PA-C 132 [facility] [place] [address] Health Maintenance Due Date Last Done Comments [...] Additional history exists CKD HGB USE SMARTSET 58675 01/26/202501/26, 01/27/2024, 01/16/2024, Additional history exists CKD PHOS USE SMARTSET 19584 02/12/2025 06/0 11/2023, 01/27/2024, 01/16/2024, Additional history [...] encounter Medical Devices Implanted Type Area It Director Device Identifier Shelf Expiration Date Model / Serial / Lot Port Power Mri W/8fr Cath - [id number] Implanted:Qty: 1 on 09/26/2020 by Simone Michelle MD at OR [facility] Right: Chest CR BARD : PERIPHERAL VASCULAR 10/12/2021 [id number] / / [id number] Description:right IJ Lens Intraoc 19.0 - [id number] - [id number] Implanted:Qty: 1 on 02/03/2021 by Chris Sexton MD at OR [facility] Right: Eye [employer]OM[employer] 09/11/2025 [id number] / [id number] / Lens Intraoc 19.0 - [id number] - [id number] Implanted:Qty: 1 on 02/24/2021 by Chris Sexton MD at OR [facility] Left: Eye BAUSCH [employer] LOMB 10/12/2025 [id number] / [id number] / [id number] System Urolift - [id number] Implanted:Qty: 2 on 03/17/2023 by Devyn Paniagua MD at OR [facility] N/A: Urethra [employer] 11/18/2023 [id number] / / [id number] System Urolift - [id number] Implanted:Qty: 3 on 03/17/2023 by Devyn Paniagua MD at OR [facility] N/A: Urethra [employer] 11/03/2023 [id number] / / [id number] documented as of this encounter Additional Health [...] and were consensually agreed upon. Care Teams News Production Supervisor Relationship Specialty Start Date End Date Jaime Garcia MD [address] [place] [address] [place] [address] PCP - General Family Medicine 10/15/20 documented as of this encounter
--- OUTSIDE RECORDS SUMMARY | 2024-05-13 06:06 | External Medical Summary | Summary of Care ---
Author Name Unknown Organization [facility] Address [address] [place] [address] Phone [phone] Care Team Providers Care Maintenance Electrician Name Role Phone Jaime Garcia MD Primary Care Provide r Reason for Visit * Reason Comments Chemotherapy Cytoxan/Darzalex Fas pro * Episode Based Medications (Routine) - Authorized Specialty Diagnoses / Procedures Referred By Contbianca t Referred To Contact Diagnoses Lambda light chain myeloma (HCC) AL amyloidosis (HCC) Procedures NE DARATUMUMAB, HYALURONIDASE NE CYCLOPHOSPHAMIDE 100 MG INJ NE INJ, CYCLOPHOSPHAMIDE, NOS Rosalio Amaral MD [facility] [place] [facility] [place] [address] Anc Hem/Onc Scenery Batool DEPT CLOSED - 07/26/23 [address] [place] [phone] Referral ID Status Reason Start Date Expiration Date V isits Requested Visits Authorized [id number] Authorized 10/21/2023 10/21/2024 [id number] Encounter Details Date Type Department Care Team (Latest Contact Info) Description 01/16/2024 1:00 PM EDT Hem/Onc Treatment Hematology/Oncolog y Treatment, [place] [address] [place] [address] [place], [...] directed at bedtime. 1 Each 1 Active [place] Selectuch Ultra Blue In Vitro Strip (Glucose Blood)Indications: [...] mL 3 3 06/14/20 24 Active Pen [place] 32G X 4 MM Use as directed. 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 As needed.. 4 Active oxyCODONE HCl 5 MG Oral Tablet (Oxy IR)Indications:Mul tiple myeloma in relapse ([facility]) Take 1 Tablet by mouth [...] hemoglobin A1c goal of less than 7.0% ([facility]) Take 2 Tablets by mouth in the morning. 180 Tablet 1 4 Active DULoxetine HCl 20 MG Oral Capsule Delayed Release Particles (Cymbalta) Take 2 Capsules by mouth in the morning. 180 Capsule 1 4 Active Nystatin 963985 UNIT/ML Mouth/Throat SuspensionIndicati ons:Multiple myeloma in relapse ([facility]) Swish and swallow 5 mL [...] Description 03/16/2024 8:30 AM EDT Anticoagulation Pharmacy, [address] [place] [address] [place] [address] 03/16/2024 2:00 PM EDT Telemedicine Hematology [facility]cology [facility] [place] [address] [facility] [place] [address] Thierno Patel PA-C [address] [facility] [place] [address] 04/06/2024 9:30 AM EDT Office Visit Cardiology, [facility] [address] [facility] [place] [address] Beth Salter CRNP [address] [place] [address] [place] [address] 04/16/2024 2:30 PM EDT Telemedicine Hematology Oncology [facility] Tyree UGARTE [address] [facility] [place] [address] Rosalio Amaral MD [address] [facility] [place] [address] 04/18/2024 10:00 AM EDT Home Visit isinger at [place], [facility] [address] [facility] [place] [address] Sulma Seth, BOBBY [address] [place] [address] 04/19/2024 9:30 AM EDT Office Visit Cardiology [address] [place] [address] Tim Ruiz PA-C [address] [place] [address] 05/15/2024 2:00 PM EDT [facility]med[facility] [address] [place] [address] Thierno Patel PA-C [address] [place] [address] 06/20/2024 3:00 PM EDT [facility] [address] [place] [address] Rosalio Amaral MD [address] [place] [address] 10/30/2024 1:45 PM EST Office Visit Urology, [facility] 132 [place] [address] Devyn Paniagua MD [address] [place] [address] [place] [address] 01/01/2025 10:20 AM EDT Office Visit Otolaryngology [facility] 132 [place] [address] Haley Aguero PA-C 132 [place] [address] Health Maintenance Due Date Last Done Comments [...] Additional history exists CKD HGB USE SMARTSET 43209 01/26/202501/26, 01/27/2024, 01/16/2024, Additional history exists CKD PHOS USE SMARTSET 37429 02/12/2025 06/0 11/2023, 01/27/2024, 01/16/2024, Additional history [...] this encounter Medical Devices Implanted Type Area Explosive Ordnance Handler Device Identifier Shelf Expiration Date Model / Serial / Lot Port Power Mri W/8fr Cath - [id number] Implanted:Qty: 1 on 09/26/2020 by Simone Michelle MD at OR [facility] Right: Chest CR BARD : PERIPHERAL VASCULAR 10/12/2021 [id number] / / [id number] Description:right IJ Lens Intraoc 19.0 - [id number] - [id number] Implanted:Qty: 1 on 02/03/2021 by Chris Sexton MD at OR [facility] Right: Eye BAUSCH & LOMB 09/11/2025 [id number] / [id number] / Lens Intraoc 19.0 - [id number] - [id number] Implanted:Qty: 1 on 02/24/2021 by Chris Sexton MD at OR [facility] Left: Eye BAUSCH & LOMB 10/12/2025 [id number] / [id number] System Urolift - [id number] Implanted:Qty: 2 on 03/17/2023 by Devyn Paniagua MD at OR [facility] N/A: Urethra [employer] 11/18/2023 FB762-3 / / [id number] System Urolift - [id number] Implanted:Qty: 3 on 03/17/2023 by Devyn Paniagua MD at OR [facility] N/A: Urethra [employer] 11/03/2023 [id number] / / [id number] documented as of this encounter Visit Diagnoses [...] PM EDT 500 mg 555 mL/hr Daratumumab-hyaluronida se[facility] (Darzalex Faspro) 1800 mg-46955 units/ 15 ml subcut inj 15 mL, [...] were consensually agreed upon. Care Teams Maintenance Electrician Relationship Specialty Start Date End Date Jaime Garcia MD [address] [place] [address] [place] [phone] PCP - General Family Medicine 10/15/20 documented as of this encounter
--- OUTSIDE RECORDS SUMMARY | 2024-05-13 06:06 | External Medical Summary | Summary of Care ---
Author Name Unknown Organization [facility] Address [address] [place] [address] Phone [phone] Care Team Providers Care Assembler Body Name Role Phone Jaime Garcia MD Primary Care Provide r Reason for Visit * Reason Comments Chemotherapy Cytoxan/Darzalex Fas pro * Episode Based Medications (Routine) - Authorized Specialty Diagnoses / Procedures Referred By Contbianca t Referred To Contact Diagnoses Lambda light chain myeloma (HCC) AL amyloidosis (HCC) Procedures DE DARATUMUMAB, HYALURONIDASE DE CYCLOPHOSPHAMIDE 100 MG INJ DE INJ, CYCLOPHOSPHAMIDE, NOS Rosalio Amaral MD [facility] [place] [facility] [place] [address] Anc Hem/Onc Scenery Batool DEPT CLOSED - 07/26/23 [address] [place] [phone] Referral ID Status Reason Start Date Expiration Date V isits Requested Visits Authorized [id number] Authorized 10/21/2023 10/21/2024 999 [id number] Encounter Details Date Type Department Care Team (Latest Contact Info) Description 01/16/2024 1:00 PM EDT Hem/Onc Treatment Hematology/Oncolog y Treatment, [place] [address] [place] [address] [place], [...] directed at bedtime. 1 Each 1 Active Airpost.iouch Ultra Blue In Vitro Strip (Glucose Blood)Indications: [...] mL 3 3 06/14/20 24 Active Pen [place] 32G X 4 MM Use as directed. [...] Tablet (Coumadin)Indicati ons:Atrial fibrillation, unspecified type ([facility]),Anticoagulat ion management encounter,FDC current use of anticoagulant therapy,Paroxysmal atrial fibrillation ([facility]) Take up to one tablet by mouth daily as directed by anticoagulation clinic 90 Tablet 3 4 Active Dapsone 25 MG Oral TabletIndications: Multiple myeloma in relapse ([facility]) TAKE ONE TABLET BY MOUTH EVERY DAY 90 Tablet 1 4 10/27/19 25 Active Torsemide 10 MG Oral Tablet (Demadex)Indicatio ns:takes extra tab for swelling, wt gain Take 1 Tablet by mouth in the morning. As needed.. 4 Active oxyCODONE HCl 5 MG Oral Tablet (Oxy IR)Indications:Mul tiple myeloma in relapse ([facility]) Take 1 Tablet by mouth every 4 [...] less than 7.0% ([facility]) Take 2 Tablets by mouth in the morning. 180 Tablet 1 4 Active DULoxetine HCl 20 MG Oral Capsule Delayed Release Particles (Cymbalta) Take 2 Capsules by mouth in the morning. 180 Capsule 1 4 Active Nystatin 083783 UNIT/ML Mouth/Throat SuspensionIndicati ons:Multiple myeloma in relapse ([facility]) [...] Description 03/16/2024 8:30 AM EDT Anticoagulation Pharmacy, [address] [place] [address] [place] [address] 03/16/2024 2:00 PM EDT Telemedicine Hematology [facility]cology [facility] Tyree UGARTE [address] [facility] [place] [address] Thierno Patel PA-C [address] [facility] [place] [address] 04/06/2024 9:30 AM EDT Office Visit Cardiology, [facility] 132 [facility] [place] [address] Beth Salter CRNP [address] [place] [address] [place] [address] 04/16/2024 2:30 PM EDT Telemedicine Hematology [facility]cology [facility] [address] [facility] [place] [address] Rosalio [facility]al MD [address] [facility] [place] [address] 04/18/2024 10:00 AM EDT [facility] Visit [facility] [place], [facility] 132 [facility] [place] [address] Sulma Seth, BOBBY 132 [place] [address] 04/19/2024 9:30 AM EDT Office Visit Cardiology [address] [place] [address] Tim Ruiz PA-C [address] [place] [address] 05/15/2024 2:00 PM EDT [facility]medicine [facility] [address] [place] [address] Thierno Patel PA-C [address] [place] [address] 06/20/2024 3:00 PM EDT [facility] [address] [place] [address] Rosalio Amaral MD [address] [place] [address] 10/30/2024 1:45 PM EST Office Visit Urology, [facility] 132 [place] [address] Devyn Paniagua MD 27 [facility] [address] [place] [address] 01/01/2025 10:20 AM EDT Office Visit Otolaryngology [facility] 132 [place] [address] Haley Aguero PA-C 132 [place] [address] Health Maintenance Due Date Last Done Comments [...] Additional history exists CKD HGB USE SMARTSET 77049 01/26/202501/26, 01/27/2024, 01/16/2024, Additional history exists CKD PHOS USE SMARTSET 14039 02/12/2025 06/0 11/2023, 01/27/2024, 01/16/2024, Additional history [...] this encounter Medical Devices Implanted Type Area Direct Care Counselor Device Identifier Shelf Expiration Date Model / Serial / Lot Port Power Mri W/8fr Cath - [id number] Implanted:Qty: 1 on 09/26/2020 by Simone Michelle MD at OR [facility] Right: Chest CR BARD : PERIPHERAL VASCULAR 10/12/2021 [id number] / / [id number] Description:right IJ Lens Intraoc 19.0 - [id number] - [id number] Implanted:Qty: 1 on 02/03/2021 by Chris Sexton MD at OR [facility] Right: Eye BAUSCH & LOMB 09/11/2025 [id number] / [id number] / Lens Intraoc 19.0 - [id number] - [id number] Implanted:Qty: 1 on 02/24/2021 by Chris Sexton MD at OR [facility] Left: Eye BAUSCH & LOMB 10/12/2025 [id number] / [id number] System Urolift - [id number] Implanted:Qty: 2 on 03/17/2023 by Devyn Paniagua MD at OR [facility] N/A: Urethra [employer] 11/18/2023 AV695-0 / / [id number] System Urolift - [id number] Implanted:Qty: 3 on 03/17/2023 by Devyn Paniagua MD at OR [facility] N/A: Urethra [employer] 11/03/2023 VY639-7 / / [id number] documented as of this encounter Visit Diagnoses [...] 555 mL/hr Daratumumab-hyaluronida se-f[facility] (Darzalex Faspro) 1800 mg-99023 units/ 15 ml subcut inj 15 mL, [...] and were consensually agreed upon. Care Teams Assembler Body Relationship Specialty Start Date End Date Jaime Garcia MD [address] [place] [address] [place] [phone] PCP - General Family Medicine 10/15/20 documented as of this encounter
--- OUTSIDE RECORDS SUMMARY | 2024-05-13 06:07 | External Medical Summary | Summary of Care ---
Author Name Unknown Organization [facility] Address [address] [place] [address] Phone [phone] Care Team Providers Care New Client Banking Services Clerk Name Role Phone Jaime Garcia MD Primary Care Provide r Reason for Visit * Reason Comments [facility]: Maintenance Encounter Details Date Type Department Care Team (Late st Contact Info) Description 02/01/2024 11:00 AM EDT [facility], [facility] [place] [address] Sulma Seth, RN [address] [place] [address] Allergies Active Allergy Reactions Criticality Noted Date Comments Atorvastatin Muscle pain High 03/30/2019 Ezetimibe Muscle pain High 01/25/2020 documented as of this encounter (statuses as of 02/07/2024) Medications Medication Sig Dispensed Refills Start Date [...] 7.0% ([facility]) Use as directed daily. Test once daily DxE11.9 100 Strip 5 1 Active LancetsIndications: Type 2 diabetes mellitus with hemoglobin A1c goal of less than 7.0% ([facility]) Test once daily DxE11.9. 100 [...] myeloma not having achieved remission ([facility]) 5 tabs 2 times monthly [...] 90 Tablet 3 3 04/11/20 24 Active Cholecalciferol 50 MCG (1999 [place]) [...] mL 3 3 06/14/20 24 Active Pen [place] 32G X 4 MM Use as directed. [...] ns:Atrial fibrillation, unspecified type (HCC),Anticoagulati on management encounter,nursing home current use of anticoagulant [...] 7.0% ([facility]) Take 2 Tablets by mouth in the morning. 180 Tablet 1 4 Active DULoxetine HCl 20 MG Oral Capsule Delayed Release Particles (Cymbalta) Take 2 Capsules by mouth in the morning. 180 Capsule 1 4 Active Nystatin 191842 UNIT/ML Mouth/Throat SuspensionIndicatio ns:Multiple myeloma in relapse [...] as needed for Nausea. 40 Tablet 4 Active documented as of this encounter (statuses as of 02/07/2024) Active Problems Problem Noted Date Diagnosed Date [...] without remission 06/14/2014 Overview: Dr Rodriges/ [facility] AD[facility]ANCE DIRECTIVE INFORMATION 10/13/2006 Overview: No, Advance Directive brochure offered , patient declined. Degeneration of lumbosacral intervertebral disc 02/19/2005 documented as of this encounter (statuses as of 02/07/2024) Resolved Problems Problem Noted Date Diagnosed Date [...] as of this encounter (statuses as of 02/07/2024) Immunizations Name Administration Dates Next Due COVID-19, [...] Sign Reading Time Taken Comments Blood Pressure 98/62 02/01/2024 12:40 PM EDT Pulse 88 02/01/2024 12:40 PM EDT Temperature 36.6 C (97.8 F) 02/01/2024 12:40 PM E DT Respiratory Rate - - Oxygen Saturation 99% 02/01/2024 12:40 PM EDT Inhaled Oxygen Concentration - - Weight - - Height - - Body Mass Index - - documented in this encounter Progress Notes * Sulma Seth RN - 02/01/2024 12:30 PM EDT [facility] Motorcycle Police Officer Visit Date: 02/01/2024 Time: 12:30 PM Name: Jerardo Ochoa Jr. : 1970 Current Concerns: Had chemo treatment 01/26 Car-T cell transplant scheduled for 02/12 at [facility], will be inpatient in hospital for 10 days, and then will will stay at cousin's home in [place] for continued treatment and monitoring at [facility] until end of February. VS WNL Lungs clear but diminished SOB with moderate exertion No edema noted to BLE Taking Torsemide PRN Voiding without difficulty Bowels WNL- per report Appetite fair, states that he does not eat a lot because his taste has changed with chemo States that he is drinking adequate fluids, is attempting to increase water intake Physical Exam: BP 98/62 (BP Site: Right Arm, BP Position: Sitting, BP Cuff Size: Regular) | Pulse 88 | Temp 36.6 C (97.8 F) (Tympanic) | SpO2 99% Pain 0 Physical Exam Cardiovascular: Rate and Rhythm: Normal rate and regular rhythm. Pulmonary: Effort: Pulmonary effort is normal. Breath sounds: Examination of the right-lower field reveals decreased breath sounds. Examination ofthe left-lower field reveals decreased breath sounds. Decreased breath sounds present. Musculoskeletal: General: Normal range of motion. Skin: Capillary Refill: Capillary refill takes 2 to 3 seconds. Coloration: Skin is pale. Neurological: Mental Status: He is alert and oriented to person, place, and time. Psychiatric: Mood and Affect: Mood normal. Problems/Symptoms: Review of Systems Constitutional: Positive for appetite change. HENT: Negative. Eyes: Negative. Respiratory: Negative. Cardiovascular: Negative. Gastrointestinal: Negative. Genitourinary: Negative. Musculoskeletal: Negative. Skin: Positive for pallor. Neurological: Negative. Psychiatric/Behavioral: Negative. Medication Reconciliation: (See medication list) Does patient take medications as ordered: Yes Patient Well Being: PHQ2/9: No questionnaires available. AGUILAR [facility]-10 Completed this Visit: No. 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 Reinforcement/Education: Educated on home safety: Create a fall [...] exercises that will be right for you. Treatment/Plan: Continue medications as prescribed Keep all upcoming MD appointments Fall precautions Increase fluid intake, water Encouraged high protein, high calorie foods RN CM follow up in 6 weeks. Home Interventions Provided: Reinforced current Plan of Care, including self-management and medication regimen Patient's 'Red Flags': Temp>100.4 Inability to keep fluids down-zofran and compazine ineffective Bp <90/60 Patient Needs to Remember: Call [facility] with any concerns/red flags. Referrals Needed: N/A Follow Up: Is there cellular connectivity/connectivity in the home? Yes Does the patient have internet in the home? Yes Patient encouraged to call the intake phone number for all urgent but not emergent issues. Is the patient new to [facility] within the last 30 days? No, Assess appropriateness for upcoming telehealth visits. Cancel telehealth visits & schedule home visit with care steam service inspector(s)as indicated. Provider is in agreement with Plan of Care: Yes Scheduled to follow up with patient in ?2 months- patient to call [facility] when he returns home. . Sulma Ellis, BOBBY 02/01/2024 12:30 PM documented in this encounter Plan of Treatment Upcoming Encounters Date Type Department Care Team (Late st Contact Info) Description 02/15/2024 1:30 PM EDT Telemedicine Hematology Oncology [facility] [place] [facility] [address] [facility] [place] [address] Rosalio Amaral MD [address] [facility] [place] [address] 03/16/2024 8:30 AM EDT Anticoagulation Pharmacy, [address] [place] [address] [place] [address] 03/16/2024 2:00 PM EDT Telemedicine Hematology Oncology [facility] Tyree U[facility] [address] [facility] [place] [address] Thierno Patel PA-C [address] [facility] [place] [address] 04/16/2024 2:30 PM EDT Telemedicine Hematology Oncology Cancer [place] Tyree UGARTE [address] [place] [address] Rosalio Amaral MD [address] [facility] [place] [address] 04/18/2024 10:00 AM EDT Home Visit [facility] at [place], [facility] [address] [place] [address] Sulma Seth, RN [address] [place] [address] 04/19/2024 9:30 AM EDT Office Visit Cardiology [address] [place] [address] Tim Ruiz PA-C [address] [place] [address] 05/15/2024 2:00 PM EDT [facility]med[facility] [address] [place] [address] Thierno Patel PA-C [address] [place] [address] 06/20/2024 3:00 PM EDT [facility] [address] [place] [address] Rosalio Amaral MD [address] [place] [address] 10/30/2024 1:45 PM EST Office Visit Urology, [facility] [address] [place] [address] Devyn Paniagua MD [address] [address] [place] [address] 01/01/2025 10:20 AM EDT Office Visit Otolaryngology [facility] [address] [place] [address] Haley Aguero PA-C [address] [place] [address] Health Maintenance Due Date Last Done Comments [...] 07/25/2023, 03/12, 01/31/2023, Additional history exists GFR 07/29/2024 01/27/2024, 05/0 02/2024, 01/12/2024, Additional history exists Diabetic Eye Exam 01/18/2025 01/19/2024, , 07/11/2023, Additional history exists Albumin/Creatinine Ratio 01/26/2025 024, 12/30/2023, 09/08/2023, Additional history exists CKD HGB USE SMARTSET 78324 01/26/202501/26, 01/27/2024, 01/16/2024, Additional history exists CKD PHOS USE SMARTSET 49349 01/26/202501/10, 01/16/2024, 01/12/2024, Additional history exists DTaP,Tdap,and Td Vaccines (2 [...] this encounter Medical Devices Implanted Type Area Syrup Mixer Device Identifier Shelf Expiration Date Model / Serial / Lot Port Power Mri W/8fr Cath - [id number] Implanted:Qty: 1 on 09/26/2020 by Simone Michelle MD at OR [facility] Right: Chest CR BARD : PERIPHERAL VASCULAR 10/12/2021 [id number] / / [id number] Description:right IJ Lens Intraoc 19.0 - [id number] - [id number] Implanted:Qty: 1 on 02/03/2021 by Chris Sexton MD at OR [facility] Right: Eye BAUSCH & LOMB 09/11/2025 [id number] / [id number] / Lens Intraoc 19.0 - [id number] - [id number] Implanted:Qty: 1 on 02/24/2021 by Chris Sexton MD at OR [facility] Left: Eye BAUSCH & LOMB 10/12/2025 [id number] / [id number] System Urolift - [id number] Implanted:Qty: 2 on 03/17/2023 by Devyn Paniagua MD at OR [facility] N/A: Urethra [employer] 11/18/2023 LM500-2 / / [id number] System Urolift - [id number] Implanted:Qty: 3 on 03/17/2023 by Devyn Paniagua MD at OR [facility] N/A: Urethra [employer] 11/03/2023 HK425-6 / / [id number] documented as of this encounter Additional Health [...] and were consensually agreed upon. Care Teams New Client Banking Services Clerk Relationship Specialty Start Date End Date Jaime Garcia MD [address] [place] [address] [place] [phone] PCP - General Family Medicine 10/15/20 documented as of this encounter"
--- OUTSIDE RECORDS SUMMARY | 2024-05-13 06:07 | External Medical Summary | Summary of Care ---
Author Name Unknown Organization [facility] Address [address] [place] [address] Phone [phone] Care Team Providers Care Speech Lang Path Name Role Phone Eloina Day MD Primary Care Provide r Reason for Visit * Reason Comments Medication Refill Encounter Details Date Type Department Care Team (Late st Contact Info) Description 02/11/2024 Refill Family Medicine [address] [phone] Eloina Day MD [address] [place] [address] [place] [address] Nausea and vomiting, unspecified vomiting type Allergies Active Allergy Reactions Criticality Noted Date Comments Atorvastatin Muscle pain High 03/30/2019 Ezetimibe Muscle pain High 01/25/2020 documented as of this encounter (statuses as of 02/13/2024) Medications Medication Sig Dispensed Refills Start Date [...] 3 04/11/20 24 Active Cholecalciferol 50 MCG (2000 UT) Oral TabletIndications: Lambda light chain myeloma (HCC),Multiple myeloma without remission (HCC) Take 50 mcg by mouth in the morning. 30 Tablet 5 3 Active Additional Information Patient taking differently: 150 mcgOral Daily(AM), Reported on 08/20/2023 Sherry SureClick 140 MG/ML Subcutaneous Solution Auto-injector (evolocumab)Indica tions:Dyslipidemia , goal LDL below 70 INJECT 140MG (1 INJECTION) UNDER THE SKIN EVERY 14 DAYS. REMOVE FROM REFRIGERATOR 30 MINUTES PRIOR TO INJECTION 6 mL 3 3 06/14/20 24 Active Pen [place] 32G X 4 MM Use as directed. [...] MG Oral TabletIndications: Multiple myeloma in relapse ([facility]) TAKE ONE TABLET BY MOUTH EVERY DAY 90 Tablet 1 4 10/27/19 25 Active Torsemide 10 MG Oral Tablet (Demadex)Indicatio ns:takes extra tab for swelling, wt gain Take 1 Tablet by mouth in the morning. As needed.. 4 Active oxyCODONE HCl 5 MG Oral Tablet (Oxy IR)Indications:Mul tiple myeloma in relapse ([facility]) Take 1 Tablet by mouth every 4 [...] morning. 180 Capsule 1 4 Active Nystatin 362911 UNIT/ML Mouth/Throat SuspensionIndicati ons:Multiple myeloma in relapse ([facility]) Swish and swallow 5 mL in the morning and 5 mL at noon and 5 mL in the evening and 5 mL before bedtime. 60 mL 1 4 Active Magnesium Chloride 64 MG Oral Tablet Delayed Release (Mag64)Indications :Multiple myeloma in relapse ([facility]) Take 1 Tablet by mouth in the morning and 1 Tablet before bedtime. 180 Tablet 3 4 Active Prochlorperazine Maleate 10 MG Oral Tablet (Compazine)Indicat ions:Nausea and vomiting, unspecified vomiting type Take 1 Tablet by mouth every 6 hours as needed for Nausea. 40 Tablet 4 Active Prochlorperazine Maleate 10 MG Oral Tablet (Compazine)Indicat ions:Nausea and vomiting, unspecified vomiting type Take 1 Tablet by mouth every 6 hours as needed for Nausea. 40 Tablet 4 02/11/20 24 Discontinu ed(Refill) documented as of this encounter (statuses as of 02/13/2024) Active Problems Problem Noted Date Diagnosed Date [...] as of this encounter (statuses as of 02/13/2024) Resolved Problems Problem Noted Date Diagnosed Date [...] as of this encounter (statuses as of 02/13/2024) Immunizations Name Administration Dates Next Due COVID-19, [...] Telephone Encounter - Eloina Day MD - 02/13/2024 1:36 PM EDT Signed Prescriptions: Disp Refills Prochlorperazine Maleate 10 MG Oral Tablet*40 Tab*0 Sig: Take 1 Tablet by mouth every 6 hours as needed for Nausea. Authorizing Provider: ELOINA DAY * Telephone Encounter - Mónica Pollock [facility] - 02/13/2024 1:22 PM EDTPending Prescriptions: Disp Refills Prochlorperazine Maleate 10 MG Oral Tablet*40 Tab*0 Sig: Take 1 Tablet by mouth every 6 hours as needed for Nausea. * Telephone Encounter - Mónica Pollock [facility] - 02/13/2024 1:21 PM EDT [facility] is currently not authorized to approve refills for the pended medication(s) per refill protocol. Please approve if appropriate. Thank You, Mónica Pollock [facility] Clinical Pharmacist [facility] ([facility]) [phone] 02/13/2024, 1:21 PM documented in this encounter Plan of Treatment Upcoming Encounters Date Type Department Care Team (Late st Contact Info) Description 02/15/2024 1:30 PM EDT Telemedicine Hematology [facility] Tyree UGARTE [address] [place] [address] Rosalio Amaral MD [address] [facility] [address] 03/16/2024 8:30 AM EDT Anticoagulation Pharmacy, [address] [place] [address] [place] [address] 03/16/2024 2:00 PM EDT Telemedicine Hematology [facility] Tyree UGARTE [address] [place] [address] Thierno Patel PA-C [address] [facility] [address] 04/06/2024 9:30 AM EDT Office Visit Cardiology, [facility] [address] [facility] [place] [address] Beth Saltre CRNP [address] [place] [address] [place] [address] 04/16/2024 2:30 PM EDT Telemedicine Hematology [facility] Tyree UGARTE [address] [place] [address] Rosalio Amaral MD [address] [facility] [address] 04/18/2024 10:00 AM EDT [facility] Visit [facility] [place], [facility] [address] [facility] [place] [address] Sulma Seth, BOBBY [address] [place] [address] 04/19/2024 9:30 AM EDT Office Visit Cardiology [address] [place] [address] Tim Ruiz PA-C [address] [place] [address] 05/15/2024 2:00 PM EDT [facility]medicine [facility] [address] [place] [address] Thierno Patel PA-C [address] [place] [address] 06/20/2024 3:00 PM EDT Telemedicine [facility] [address] [place] [address] Rosalio Amaral MD [address] [place] [address] 10/30/2024 1:45 PM EST Office Visit Urology, [facility] [address] [place] [address] Devyn Paniagua MD [address] [address] [place] [address] 01/01/2025 10:20 AM EDT Office Visit Otolaryngology [facility] [address] [place] [address] Haley Aguero PA-C [address] [place] [address] Health Maintenance Due Date Last Done Comments [...] Additional history exists CKD HGB USE SMARTSET 24250 01/26/202501/26, 01/27/2024, 01/16/2024, Additional history exists CKD PHOS USE SMARTSET 19436 02/12/2025 06/0 11/2023, 01/27/2024, 01/16/2024, Additional history [...] this encounter Medical Devices Implanted Type Area Scrap Drop Crane Operator Device Identifier Shelf Expiration Date Model / Serial / Lot Port Power Mri W/8fr Cath - [id number] Implanted:Qty: 1 on 09/26/2020 by Simone Michelle MD at [place] [facility] Right: Chest CR BARD : PERIPHERAL VASCULAR 10/12/2021 [id number] / / [id number] Description:right IJ Lens Intraoc 19.0 - [id number] - [id number] Implanted:Qty: 1 on 02/03/2021 by Chris Sexton MD at OR [facility] Right: Eye [employer]USCH [employer] LOMB 09/11/2025 [id number] / [id number] / Lens Intraoc 19.0 - [id number] - [id number] Implanted:Qty: 1 on 02/24/2021 by Chris Sexton MD at OR [facility] Left: Eye BAUSCH & LOMB 10/12/2025 [id number] / [id number] / [id number] System Urolift - [id number] Implanted:Qty: 2 on 03/17/2023 by Devyn Paniagua MD at OR [facility] N/A: Urethra [employer] 11/18/2023 [id number] / / [id number] System Urolift - [id number] Implanted:Qty: 3 on 03/17/2023 by Devyn Paniagua MD at OR [facility] N/A: Urethra [employer] 11/03/2023 [id number] / / [id number] documented as of this encounter Visit Diagnoses Diagnosis Nausea and vomiting, unspecified vomiting type documented in this encounter Additional Health Concerns [...] and were consensually agreed upon. Care Teams Speech Lang Path Relationship Specialty Start Date End Date Eloina Day MD [address] [place] [address] [place] [id number] PCP - General Family Medicine 10/15/20 documented as of this encounter
--- OUTSIDE RECORDS SUMMARY | 2024-05-13 06:07 | External Medical Summary | Summary of Care ---
Author Name Unknown Organization [facility] Address [address] [place] [address] Phone [phone] Care Team Providers Care Senior Mortgage Underwriter Name Role Phone Jaime Garcia MD Primary Care Provide r Reason for Visit * Reason Onset Date Comments FYI 11/10/2023 No AVS to schedu le Patient Appointment. Encounter Details Date Type Department Care Team (Late st Contact Info) Description 11/10/2023 Telephone Hematology Oncology [facility] Tyree UGARTE [address] [facility] [place] [address] Rosalio Amaral MD [address] [facility] [place] [address] (No AVS to schedule Patient Appointment.) Allergies Active Allergy Reactions Criticality Noted Date Comments Atorvastatin Muscle pain High 03/30/2019 Ezetimibe Muscle pain High 01/25/2020 documented as of this encounter (statuses as of 02/09/2024) Medications Medication Sig Dispensed Refills Start Date [...] of less than 7.0% ([facility]) Use as directed daily. Test once daily [...] mL 3 3 06/14/20 24 Active Pen [place] 32G X 4 MM Use as directed. [...] ns:Atrial fibrillation, unspecified type (HCC),Anticoagulati on management encounter,tank terminal gauger current use of anticoagulant therapy,Paroxysmal atrial fibrillation (HCC) Take up to one tablet by mouth daily as directed by anticoagulation clinic 90 Tablet 3 4 Active Dapsone 25 MG Oral TabletIndications:M ultiple myeloma in relapse (HCC) TAKE ONE TABLET BY MOUTH EVERY DAY 90 Tablet 1 4 10/27/19 25 Active documented as of this encounter (statuses as of 02/09/2024) Active Problems Problem Noted Date Diagnosed Date [...] as of this encounter (statuses as of 02/09/2024) Resolved Problems Problem Noted Date Diagnosed Date [...] as of this encounter (statuses as of 02/09/2024) Immunizations Name Administration Dates Next Due COVID-19, [...] [address] [facility] [place] [address] Rosalio Amaral MD [address] [facility] [place] [address] 03/16/2024 8:30 AM EDT Anticoagulation Pharmacy, [address] [place] [address] [place] [address] 03/16/2024 2:00 PM EDT Telemedicine Hematology Oncology [facility] [place] Tyree UGARTE [address] [place] [address] Thierno Patel PA-C [address] [facility] [place] [address] 04/16/2024 2:30 PM EDT Telemedicine Hematology [facility]cology [facility] [place] Tyree UGARTE [address] [facility] [place] [address] Rosalio Amaral MD [address] [facility] [place] [address] 04/18/2024 10:00 AM EDT [facility], [facility] [address] [place] [address] Sulma Seth, BOBBY [address] [place] [address] 04/19/2024 9:30 AM EDT Office Visit Cardiology [address] [place] [address] Tim Ruiz PA-C [address] [place] [address] 05/15/2024 2:00 PM EDT Telemedicine [facility] [address] [place] [address] Thierno Patel PA-C [address] [place] [address] 06/20/2024 3:00 PM EDT Telemedicine [facility] [address] [place] [address] Rosalio Amaral MD [address] [place] [address] 10/30/2024 1:45 PM EST Office Visit Urology, [facility] [address] [place] [address] Devyn Paniagua MD [address] [facility] [address] [place] [address] 01/01/2025 10:20 AM EDT Office Visit Otolaryngology [facility] 132 [place] [address] Haley Aguero PA-C [address] [place] [address] Health Maintenance Due Date Last Done Comments [...] 01/31/2023, Additional history exists GFR 07/29/2024 01/27/2024, 02/2024, 01/12/2024, Additional history exists Diabetic Eye Exam 01/18/2025 01/19/2024, , 07/11/2023, Additional history exists Albumin/Creatinine Ratio 01/26/2025 024, 12/30/2023, 09/08/2023, Additional history exists CKD HGB USE SMARTSET 57133 01/26/202501/26, 01/27/2024, 01/16/2024, Additional history exists CKD PHOS USE SMARTSET 79413 01/26/202501/10, 01/16/2024, 01/12/2024, Additional history exists DTaP,Tdap,and [...] this encounter Medical Devices Implanted Type Area Pile Driving Nozzleman Device Identifier Shelf Expiration Date Model / Serial / Lot Port Power Mri W/8fr Cath - [id number] Implanted:Qty: 1 on 09/26/2020 by Simone Michelle MD at OR [facility] Right: Chest CR BARD : PERIPHERAL VASCULAR 10/12/2021 [id number] / / [id number] Description:right IJ Lens Intraoc 19.0 - [id number] - [id number] Implanted:Qty: 1 on 02/03/2021 by Chris Sexton MD at OR [facility] Right: Eye BAUSCH & LOMB 09/11/2025 [id number] / [id number] / Lens Intraoc 19.0 - [id number] - [id number] Implanted:Qty: 1 on 02/24/2021 by Chris Sexton MD at OR [facility] Left: Eye BAUSCH & LOMB 10/12/2025 [id number] / [id number] / [id number] System Urolift - [id number] Implanted:Qty: 2 on 03/17/2023 by Devyn Paniagua MD at OR [facility] N/A: Urethra [employer] 11/18/2023 LD291-0 / / [id number] System Urolift - [id number] Implanted:Qty: 3 on 03/17/2023 by Devyn Paniagua MD at OR [facility] N/A: Urethra [employer] 11/03/2023 KC123-9 / / [id number] documented as of this encounter Additional Health [...] were consensually agreed upon. Care Teams Senior Mortgage Underwriter Relationship Specialty Start Date End Date Jaime Garcia MD [address] [place] [address] [place] [address] PCP - General Family Medicine 10/15/20 documented as of this encounter
--- OUTSIDE RECORDS SUMMARY | 2024-05-13 06:07 | External Medical Summary | Summary of Care ---
Author Name Unknown Organization [facility] Address [address] [place] [address] Phone [phone] Care Team Providers Care Fresh Foods Clerk Name Role Phone Jaime Garcia MD [...] CA INJ, CYCLOPHOSPHAMIDE, NOS Rosalio Amaral MD [facility] [place] [address] Anc Hem/Onc Scenesukhdeep Renae DEPT CLOSED - 07/26/23 [address] [place] [phone] Referral ID Status Reason Start Date Expiration Date V isits Requested Visits Authorized [id number] Authorized 10/21/2023 10/21/2024 999 999 Encounter Details Date Type Department Care Team (Latest Contact Info) Description 01/27/2024 10:00 AM EDT Hem/Onc Treatment Hematology/Oncolog y Treatment, [facility] [place] [address] [place] [address] [place], Chair [address] Hem Onc Scen[address] [place] [phone] Lambda light chain myeloma (HCC)*; AL amyloidosis (HCC); Encounter for antineoplastic chemotherapy Allergies Active Allergy Reactions Criticality Noted Date Comments Atorvastatin Muscle pain High 03/30/2019 Ezetimibe Muscle pain High 01/25/2020 documented as of this encounter (statuses as of 01/27/2024) Medications Medication Sig Dispensed Refills Start Date [...] Pain, Severe. 10 Tablet 0 3 Active Finasteride 5 MG Oral Tablet [...] mL 3 3 06/14/20 24 Active Pen [place] 32G X 4 MM Use as directed. [...] long-term current use of insulin ([facility]) Use as directed to check blood [...] by mouth in the morning. 0 Active NSS 0.9 % SOLN 100 mL with cefTRIAXone 2 GM SOLR 2 g Administer 2 g intravenously daily. 0 Active Warfarin Sodium 2.5 MG Oral Tablet (Coumadin)Indicatio ns:Atrial fibrillation, unspecified type ([facility]),Anticoagulati on management encounter,alf current use of anticoagulant therapy,Paroxysmal atrial fibrillation ([facility]) Take up to one tablet by mouth daily as directed by anticoagulation clinic 90 Tablet 3 4 Active Dapsone 25 MG Oral TabletIndications:M ultiple myeloma in relapse ([facility]) TAKE ONE TABLET BY MOUTH EVERY DAY 90 Tablet 1 4 10/27/19 25 Active Torsemide 10 MG Oral Tablet (Demadex)Indication s:takes extra tab for swelling, wt gain Take 1 Tablet by mouth in the morning. As needed.. 0 4 Active oxyCODONE HCl 5 MG Oral Tablet (Oxy IR)Indications:Mult iple myeloma in relapse ([facility]) Take 1 Tablet by mouth every 4 hours as needed for breakthrough pain. 30 Tablet 0 4 Active Albuterol Sulfate HFA 108 (90 [...] morning. 180 Capsule 1 4 Active Nystatin 092260 UNIT/ML Mouth/Throat SuspensionIndicatio ns:Multiple myeloma in relapse [...] as of this encounter (statuses as of 01/27/2024) Active Problems Problem Noted Date Diagnosed Date [...] as of this encounter (statuses as of 01/27/2024) Resolved Problems Problem Noted Date Diagnosed Date [...] as of this encounter (statuses as of 01/27/2024) Immunizations Name Administration Dates Next Due COVID-19, [...] Care Team (Late st Contact Info) Description 02/03/2024 8:20 AM EDT Anticoagulation Pharmacy, [address] [place] [address] [place] [address] 02/03/2024 8:30 AM EDT Office Visit Pharmacy, [address] [place] [address] [place] [address] 02/03/2024 10:00 AM EDT [facility] [address] [place] [address] Sulma Seth RN [address] [place] [address] 02/15/2024 1:30 PM EDT [facility] [address] [place] [address] Rosalio Amaral MD [address] [place] [address] 03/16/2024 2:00 PM EDT Telemedicine [facility] [address] [place] [address] Thierno Patel PA-C [address] [place] [address] 04/16/2024 2:30 PM EDT Telemedicine [facility] [address] [place] [address] Rosalio Amaral MD [address] [place] [address] 04/19/2024 9:30 AM EDT Office Visit Cardiology [address] [place] [address] Tim Ruiz PA-C [address] [place] [address] 05/15/2024 2:00 PM EDT [facility] [address] [place] [address] Thierno Patel PA-C [address] [place] [address] 06/20/2024 3:00 PM EDT Telemedicine Hematology [facility] Tyree Jordan [address] [place] [address] Rosalio Amaral MD [address] [place] [address] 10/30/2024 1:45 PM EST Office Visit [facility], [facility] [place] [address] Devyn Paniagua MD [address] [place] [address] [place] [address] 01/01/2025 10:20 AM EDT Office Visit Otolaryngology [facility] [address] [place] [address] Haley Aguero PA-C [address] [place] [address] Health Maintenance Due Date Last Done Comments [...] 01/31/2023, Additional history exists GFR 07/29/2024 01/27/2024, 050 02/2024, 01/12/2024, Additional history exists Diabetic Eye Exam 01/18/2025 01/19/2024, , 07/11/2023, Additional history exists Albumin/Creatinine Ratio 01/26/2025 024, 12/30/2023, 09/08/2023, Additional history exists CKD HGB USE SMARTSET 97518 01/26/202501/26, 01/27/2024, 01/16/2024, Additional history exists CKD PHOS USE SMARTSET 03475 01/26/202501/10, 01/16/2024, 01/12/2024, Additional history exists DTaP,Tdap,and [...] this encounter Medical Devices Implanted Type Area Chrome Cleaner Device Identifier Shelf Expiration Date Model / Serial / Lot Port Power Mri W/8fr Cath - [id number] Implanted:Qty: 1 on 09/26/2020 by Simone Michelle MD at OR [facility] Right: Chest CR BARD : PERIPHERAL VASCULAR 10/12/2021 [id number] / / [id number] Description:right IJ Lens Intraoc 19.0 - [id number] - [id number] Implanted:Qty: 1 on 02/03/2021 by Chris Sexton MD at OR [facility] Right: Eye BAUSCH [employer] LOMB 09/11/2025 [id number] / [id number] / Lens Intraoc 19.0 - [id number] - [id number] Implanted:Qty: 1 on 02/24/2021 by Chris Sxeton MD at OR [facility] Left: Eye BAUSCH & LOMB 10/12/2025 [id number] / [id number] System Urolift - [id number] Implanted:Qty: 2 on 03/17/2023 by Devyn Paniagua MD at OR [facility] N/A: Urethra [employer] 11/18/2023 LU400-8 / / [id number] System Urolift - [id number] Implanted:Qty: 3 on 03/17/2023 by Devyn Paniagua MD at OR [facility] N/A: Urethra [employer] 11/03/2023 [id number] / / [id number] documented as of this encounter Visit Diagnoses Diagnosis Lambda light chain myeloma (HCC)- Primary Multiple myeloma, without mention of having achieved remission AL amyloidosis (HCC) Other amyloidosis Encounter for antineoplastic chemotherapy documented in this encounter Administered Medications Active Administered Medications - up to 3 most recent administrations Medication Order MAR Action Action Date Dose Rate Site diphenhydrAMINE (Benadryl) inj 50 mg 50 mg, IV Push, ONCE PRN Other, Hypersensitivity Reaction, Starting on Tue01/27/24 at 1009, Until 01/28/24 at 1008, For 24 hours EPINEPHrine 1 MG/ML inj 0.3 mg 0.3 mg, Intramuscular, ONCE PRN Other, Hypersensitivity Reaction or Anaphylaxis, Starting on Tue01/27/24 at 1009, Until 01/28/24 at 1008, For 24 hours hEParin 100 UNIT/ML Lock Flush inj 500 Units 500 Units (5 mL), IV Lock, PRN Other, IV Flush, Starting on Tue01/27/24 at 1009, Until 01/28/24 at 1008, For 24 hours, Do not flush if lock, PICC, or central line not in place; IV infusing or unable to flush. Given 01/27/2024 11:24 AM EDT 500 Units Hydrocortisone Sod Suc (PF) (Solu-Cortef) inj 100 mg 100 mg, IV Push, ONCE PRN Other, Hypersensitivity Reaction, Starting on Tue01/27/24 at 1009, Until 01/28/24 at 1008, For 24 hours meperidine (Demerol) 25 MG/ML inj 25 mg 25 mg, IV Push, ONCE PRN Shivering, Starting on Tue01/27/24 at 1009, Until 01/28/24 at 1008, For 24 hours NSS infusion 500 mL, Intravenous, at 50 mL/hr, CONTINUOUS, Starting on Tue01/27/24 at 1115, Until Tue01/27/24 at 2114 Start Infusion 01/27/2024 10:20 AM EDT 500 mL 50 mL/hr sodium chloride 0.9 % flush central line 10 mL 10 mL, IV Push, PRN Other, IV Flush, Starting on Tue01/27/24 at 1009, Until 01/28/24 at 1008, For 24 hours, Do not flush if lock, PICC, or central line not in place; IV infusing or unable to flush. Given 01/27/2024 11:24 AM EDT 10 mL Inactive Administered Medications [...] 10:49 AM EDT 500 mg 550 mL/hr Daratumumab-hyaluronidas e-fihj (Darzalex Faspro) 1800 mg-13580 units/ 15 ml subcut inj 15 mL, [...] Given 01/27/2024 10:26 AM EDT 10 mg documented in this encounter Additional [...] and were consensually agreed upon. Care Teams Fresh Foods Clerk Relationship Specialty Start Date End Date Jaime Garcia MD [address] [place] [address] [place] [phone] PCP - General Family Medicine 10/15/20 documented as of this encounter
--- OUTSIDE RECORDS SUMMARY | 2024-05-13 06:07 | External Medical Summary | Summary of Care ---
Author Name Unknown Organization [facility] Address [address] [place] [address] Phone [phone] Care Team Providers Care Drug And Alcohol Treatment Specialist Name Role Phone Eloina Day MD Primary Care Provide r Reason for Visit * Reason Onset Date Comments Medication Refill 01/30/2024 Encounter Details Date Type Department Care Team (Late st Contact Info) Description 01/30/2024 Refill Family Medicine [address] [phone] Eloina Day MD [address] [place] [address] [place] [address] Nausea and vomiting, unspecified vomiting type Allergies Active Allergy Reactions Criticality Noted Date Comments Atorvastatin Muscle pain High 03/30/2019 Ezetimibe Muscle pain High 01/25/2020 documented as of this encounter (statuses as of 02/01/2024) Medications Medication Sig Dispensed Refills Start Date [...] mL 3 3 06/14/20 24 Active Pen [place] 32G X 4 MM Use as directed. [...] less than 7.0% ([facility]) Take 2 Tablets by mouth in the morning. 180 Tablet 1 4 Active DULoxetine HCl 20 MG Oral Capsule Delayed Release Particles (Cymbalta) Take 2 Capsules by mouth in the morning. 180 Capsule 1 4 Active Nystatin 031268 UNIT/ML Mouth/Throat SuspensionIndicati ons:Multiple myeloma in relapse ([facility]) Swish and swallow 5 mL in the morning and 5 mL at noon and 5 mL in the evening and 5 mL before bedtime. 60 mL 1 4 Active Magnesium Chloride 64 MG Oral Tablet Delayed Release (Mag64)Indications :Multiple myeloma in relapse ([facility]) Take 1 Tablet by mouth [...] as of this encounter (statuses as of 02/01/2024) Active Problems Problem Noted Date Diagnosed Date [...] myeloma without remission 06/14/2014 Overview: Dr Rodriges/ [facility] ADVANCE DIRECTIVE INFORMATION 10/13/2006 Overview: No, Advance Directive brochure offered , patient declined. Degeneration of lumbosacral intervertebral disc 02/19/2005 documented as of this encounter (statuses as of 02/01/2024) Resolved Problems Problem Noted Date Diagnosed Date [...] as of this encounter (statuses as of 02/01/2024) Immunizations Name Administration Dates Next Due COVID-19, [...] Telephone Encounter - Eloina Day MD - 02/01/2024 7:46 AM EDT Signed Prescriptions: Disp Refills Prochlorperazine Maleate 10 MG Oral Tablet*40 Tab*0 Sig: Take 1 Tablet by mouth every 6 hours as needed for Nausea. Authorizing Provider: ELOINA DAY * Telephone Encounter - Jaxon Swann [facility] - 01/31/2024 3:51 PM EDT Pending Prescriptions: Disp Refills Prochlorperazine Maleate 10 MG Oral Tablet*40 Tab*0 Sig: Take 1 Tablet by mouth every 6 hours as needed for Nausea. * Telephone Encounter - Jaxon Swann [facility] - 01/31/2024 3:51 PM EDT Pending Prescriptions: Disp Refills Prochlorperazine Maleate 10 MG Oral Tablet*40 Tab*0 Sig: Take 1 Tablet by mouth every 6 hours as needed for Nausea. 12/06/2023 (in office), Visit date not found (telemedicine) Visit date not found If no future appointments scheduled, and last appointment is greater than a year ago, please schedule patient for a follow-up appointment Last date the medication was ordered: 09/20/23 Pharmacy: [facility] Is this request for a controlled substance?No Urine Drug Screen:No results found. However, due to the size of the patient record, not all encounters were searched. Please check Results Review for a complete set of results. Patient Phone Numbers Labs: Lab Results Component Value Date/Time CREAT 1.2 01/27/2024 09:17 AM CREAT 1.26 12/19/2023 10:18 AM CREAT 1.4 (H) 10/03/2020 07:44 AM POTASSIUM 4.6 01/27/2024 09:17 AM POTASSIUM 4.6 12/19/2023 10:18 AM POTASSIUM 3.9 10/03/2020 07:44 AM TSH 2.22 07/25/2023 09:43 AM TSH 1.93 07/04/2020 07:47 AM LDLCALC 22 01/31/2023 08:42 AM LDLCALC 149 (H) 12/11/2019 09:47 AM LDLDIRECT 33 07/06/2023 08:48 AM LDLDIRECT 99 07/04/2020 07:47 AM ALT 20 01/27/2024 09:17 AM ALT 7 (L) 12/19/2023 10:18 AM ALT 32 10/03/2020 07:44 AM HGBA1C 9.3 (H) 07/06/2023 08:53 AM HGBA1C 7.8 (H) 07/04/2020 07:47 AM documented in this encounter Plan of Treatment Upcoming Encounters Date Type Department Care Team (Late st Contact Info) Description 02/01/2024 11:00 AM EDT Home Visit [facility] at [facility] [address] [place] [address] Sulma Seth RN [address] [place] [address] 02/03/2024 8:20 AM EDT Anticoagulation Pharmacy, [address] [place] [address] [place] [address] 02/03/2024 8:30 AM EDT Office Visit Pharmacy, [address] [place] [address] [place] [address] 02/15/2024 1:30 PM EDT Telemedicine [facility] [address] [place] [address] Rosalio Amaral MD [address] [facility] [place] [address] 03/16/2024 2:00 PM EDT [facility] [address] [place] [address] Thierno Patel PA-C [address] [facility] [place] [address] 04/16/2024 2:30 PM EDT [facility]med[facility] [address] [place] [address] Rosalio Amaral MD [address] [place] [address] 04/19/2024 9:30 AM EDT Office Visit Cardiology [address] [place] [address] Tim Ruiz PA-C [address] [place] [address] 05/15/2024 2:00 PM EDT Telemedicine [facility] [address] [facility] [place] [address] Thierno Patel PA-C [address] [facility] [place] [address] 06/20/2024 3:00 PM EDT Telemedicine H[facility]ology [facility] [address] [facility] [place] [address] Rosalio Amaral MD [address] [facility] [place] [address] 10/30/2024 1:45 PM EST Office [facility], [facility] [place] [address] Devyn Paniagua MD 27 [facility] [address] [place] [address] 01/01/2025 10:20 AM EDT Office Visit Otolaryngology [facility] [place] [address] Haley Aguero PA-C 132 [facility] [place] [address] Health Maintenance Due Date Last Done Comments [...] Additional history exists CKD HGB USE SMARTSET 49479 01/26/202501/26, 01/27/2024, 01/16/2024, Additional history exists CKD PHOS USE SMARTSET 77785 01/26/202501/10, 01/16/2024, 01/12/2024, Additional history exists DTaP,Tdap,and [...] this encounter Medical Devices Implanted Type Area Apple Checker Device Identifier Shelf Expiration Date Model / Serial / Lot Port Power Mri W/8fr Cath - [id number] Implanted:Qty: 1 on 09/26/2020 by Simone Michelle MD at OR [facility] Right: Chest CR BARD : PERIPHERAL VASCULAR 10/12/2021 [id number] / / [id number] Description:right IJ Lens Intraoc 19.0 - [id number] - [id number] Implanted:Qty: 1 on 02/03/2021 by Chris Sexton MD at OR [facility] Right: Eye [employer]OMB 09/11/2025 [id number] / [id number] / Lens Intraoc 19.0 - [id number] - [id number] Implanted:Qty: 1 on 02/24/2021 by Chris Sexton MD at OR [facility] Left: Eye BAUSCH & LOMB 10/12/2025 [id number] / [id number] / [id number] System Urolift - [id number] Implanted:Qty: 2 on 03/17/2023 by Devyn Paniagua MD at OR [facility] N/A: Urethra [employer] 11/18/2023 [id number] / / [id number] System Urolift - [id number] Implanted:Qty: 3 on 03/17/2023 by Devyn Paniagua MD at OR [facility] N/A: Urethra [employer] 11/03/2023 [id number] / / [id number] documented as of this encounter Visit Diagnoses [...] and were consensually agreed upon. Care Teams Drug And Alcohol Treatment Specialist Relationship Specialty Start Date End Date Eloina Day MD [address] [place] [address] [place] [phone] PCP - General Family Medicine 10/15/20 documented as of this encounter
--- OUTSIDE RECORDS SUMMARY | 2024-05-13 06:07 | External Medical Summary | Summary of Care ---
Author Name Unknown Organization [facility] Address [address] [place] [address] Phone [phone] Care Team Providers Care Chemical Processing Technician Name Role Phone Jaime Garcia MD Primary Care Provide r Reason for Visit * Reason Comments Dosage Adjustment In Person (Anticoag Cl inic) Encounter Details Date Type Department Care Team (Latest Contact Info) Description 02/03/2024 8:20 AM EDT Anticoagulation Pharmacy, [address] [place] [address] [place] [address] Anticoagulation management encounter*; PAF (paroxysmal atrial fibrillation) (HCC) Allergies Active Allergy Reactions Criticality Noted Date Comments Atorvastatin Muscle pain High 03/30/2019 Ezetimibe Muscle pain High 01/25/2020 documented as of this encounter (statuses as of 02/03/2024) Medications Medication Sig Dispensed Refills Start Date [...] myeloma not having achieved remission ([facility]) 5 tabs 2 times monthly [...] mL 3 3 06/14/20 24 Active Pen [place] 32G X 4 MM Use as directed. 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 180 Capsule 1 4 Active Nystatin 595283 UNIT/ML Mouth/Throat SuspensionIndicatio ns:Multiple myeloma in relapse [...] as of this encounter (statuses as of 02/03/2024) Active Problems Problem Noted Date Diagnosed Date [...] as of this encounter (statuses as of 02/03/2024) Resolved Problems Problem Noted Date Diagnosed Date [...] as of this encounter (statuses as of 02/03/2024) Immunizations Name Administration Dates Next Due COVID-19, [...] Progress Notes * Barbara Jiménez RPh - 02/03/2024 8:26 AM EDT Images from the original note were not included. Medication Therapy Disease Management - Anticoagulation Patient: Jerardo Ochoa Jr. | : 1970 Subjective Patient-Reported Symptoms: Patient Findings Positives: Other complaints Negatives: Signs/symptoms of thrombosis, Signs/symptoms of bleeding, Change in health, Change in alcohol use, Change in activity, Upcoming invasive procedure, Missed doses, Extra doses, Change in medications, Change in diet/appetite, Bruising Objective Current Warfarin Dose As of 02/03/2024 Warfarin maintenance plan: 1.25 mg (2.5 mg x 0.5) every day INR Result As of 02/03/2024 INR goal: 2.0-3.0 INR used for dosin.7 (02/03/2024) Assessment & Plan Warfarin Plan As of 02/03/2024 Full warfarin instructions: 02/02: 2.5 mg; Otherwise 1.25 mg every day Next INR check: 03/16/2024 Repeat PT/INR in 5 week(s) Weekly dose: not changed Additional Dosing Information: Patient planning to go to [facility] next week for CAR-T cell therapy. States he will be under their care for a month. Anticoagulation management deferred to inpatient team while admitted. Patient states he is estimated to return home first week of March. F/u visit scheduled upon return. Aware to contactclinic with any additional questions or concerns. Description AMIO start 10/29/22 - 11/22/22 BID then QD after AMIO STOPPED 05/31 Barbara Jiménez [facility] Clinical Pharmacist 02/03/2024, 8:26 AM documented in this encounter Plan of Treatment Upcoming Encounters Date Type Department Care Team (Late st Contact Info) Description 02/15/2024 1:30 PM EDT Telemedicine Hematology [facility] UGARTE [address] [place] [address] Rosalio [facility]aral MD [address] [facility] [address] 03/16/2024 8:30 AM EDT Anticoagulation Pharmacy, [address] [place] [address] [place] [address] 03/16/2024 2:00 PM EDT Telemedicine [facility] [address] [place] [address] Thierno Patel PA-C [address] [place] [address] 04/16/2024 2:30 PM EDT Telemedicine [facility] [address] [place] [address] Rosalio Amaral MD [address] [place] [address] 04/18/2024 10:00 AM EDT [facility] [address] [place] [address] Sulma Seth, RN [address] [place] [address] 04/19/2024 9:30 AM EDT Office Visit Cardiology [address] [place] [address] Tim Ruiz PA-C [address] [place] [address] 05/15/2024 2:00 PM EDT Telemedicine [facility] [address] [place] [address] Thierno Patel PA-C [address] [place] [address] 06/20/2024 3:00 PM EDT Telemedicine Hematology [facility] [address] [place] [address] Rosalio Amaral MD [address] [place] [address] 10/30/2024 1:45 PM EST Office Visit Urology, [facility] [address] [facility] [place] [address] Devyn Paniagua MD [address] [place] [address] [place] [address] 01/01/2025 10:20 AM EDT Office Visit Otolaryngology [facility] 132 [facility] [place] [address] Haley Aguero PA-C [facility] [place] [address] Scheduled Orders Name Type Priority Associated Diagnoses Orde r Schedule PT INR Lab Routine PAF (paroxysmal atrial fibrillation) ([facility]) Anticoagulation management encounter 26 Occurrences starting 02/03/2024 until 02/02/2025 INR FINGERSTICK, POINT OF CARE Point of Care Testing - Unsolicited Results STAT PAF (paroxysmal atrial fibrillation) ([facility]) Anticoagulation management encounter Every 2 Weeks for 26 Occurrences starting 02/03/2024 until 02/02/2025, 1 completed Health Maintenance Due Date Last Done Comments [...] 01/31/2023, Additional history exists GFR 07/29/2024 01/27/2024, 0502/2024, 01/12/2024, Additional history exists Diabetic Eye Exam 01/18/2025 01/19/2024, , 07/11/2023, Additional history exists Albumin/Creatinine Ratio 01/26/2025 024, 12/30/2023, 09/08/2023, Additional history exists CKD HGB USE SMARTSET 37208 01/26/202501/26, 01/27/2024, 01/16/2024, Additional history exists CKD PHOS USE SMARTSET 52149 01/26/202501/10, 01/16/2024, 01/12/2024, Additional history exists DTaP,Tdap,and [...] this encounter Medical Devices Implanted Type Area Cushion Builder Device Identifier Shelf Expiration Date Model / Serial / Lot Port Power Mri W/8fr Cath - [id number] Implanted:Qty: 1 on 09/26/2020 by Simone Michelle MD at OR [facility] Right: Chest CR BARD : PERIPHERAL VASCULAR 10/12/2021 [id number] / / [id number] Description:right IJ Lens Intraoc 19.0 - [id number] - [id number] Implanted:Qty: 1 on 02/03/2021 by Chris Sexton MD at OR [facility] Right: Eye [employer]USCH [employer]OM[employer] 09/11/2025 [id number] / [id number] / Lens Intraoc 19.0 - [id number] - [id number] Implanted:Qty: 1 on 02/24/2021 by Chris Sexton MD at OR [facility] Left: Eye BAUSCH [employer] LOMB 10/12/2025 [id number] / [id number] / [id number] System Urolift - [id number] Implanted:Qty: 2 on 03/17/2023 by Devyn Paniagua MD at OR [facility] N/A: Urethra [employer] 11/18/2023 [id number] / / [id number] System Urolift - [id number] Implanted:Qty: 3 on 03/17/2023 by Devyn Paniagua MD at OR [facility] N/A: Urethra [employer] 11/03/2023 [id number] / / [id number] documented as of this encounter Procedures Procedure Name Priority Date/Time Associated Diagnosis Comments INR FINGERSTICK, POINT OF CARE STAT 02/03/2024 8:31 AM EDT PAF (paroxysmal atrial fibrillation) ([facility]) Anticoagulation management encounter documented in this encounter Results * INR FINGERSTICK, POINT OF CARE (02/03/2024 8:31 AM EDT) Fingerstick INR 1.7 INR 9:03 AM EDT [facility] Blood 02/03/2024 8:31 AM EDT 02/03/2024 9:03 AM EDT Narrative [facility] - 02/03/2024 9:03 AM EDT Therapeutic ranges for non-operative patients: Prophylaxsis/treatment of DVT: (Range:2.0-3.0) Treatment of pulmonary embolism:(Range:2.0-3.0) Prevention of systemic embolism from: -tissue heart valves -acute myocardial infarction -valvular heart disease -atrial fibrillation (Range: 2.0-3.0) Mechanical prosthetic valves: (Range: 2.5-3.5) Barbara Jiménez [facility] LAB POINT OF CARE TEST DOCKED DEVICE UNSOLICITED RESULTS [facility] [place] [address] [place] [address] documented in this encounter Visit Diagnoses Diagnosis [...] were consensually agreed upon. Care Teams Chemical Processing Technician Relationship Specialty Start Date End Date Jaime Garcia MD [address] [place] [address] [place] [phone] PCP - General Family Medicine 10/15/20 documented as of this encounter"
--- OUTSIDE RECORDS SUMMARY | 2024-05-13 06:07 | External Medical Summary ---
Author Name Unknown Address Unknown Organization : Laboratory Report Ordering Provider Test Date Status TASNEEM SLAUGHTER 02/03/2024 08:31:57 Final Therapeutic ranges for non-o perative patients:
Prophylaxsis/treatment of DVT: (Range:2.0-3.0)
Treatment of pulmonary embolism:(Range:2.0-3.0)
Prevention of systemic embolism from:
-tissue heart valves
-acute myocardial infarction
-valvular heart disease
-atrial fibrillation
(Range: 2.0-3.0)
Mechanical prosthetic valves: (Range: 2.5-3.5) Observation Date Value Abnormality Reference (Units ) Status INR in Capillary blood by Coagulation assay 02/03/2024 08:31:57 1.7 (INR) Final Performing Location
--- OUTSIDE RECORDS SUMMARY | 2024-05-13 06:07 | External Medical Summary | Summary of Care ---
Author Name Unknown Organization [facility] Address [address] [place] [address] Phone [phone] Care Team Providers Care Hadoop Admin Name Role Phone Jaime Garcia MD Primary Care Provide r Reason for Visit * Reason Comments Outpatient Testing Encounter Details Date Type Department Care Team (Late st Contact Info) Description 01/27/2024 9:00 AM EDT Laboratory Laboratory Scenery [facility] [address] [place] [id number] [place], Lab Scenery [address] [place] [address] Multiple myeloma without remission (HCC); Multiple myeloma in relapse (HCC); Lambda light chain myeloma (HCC) Allergies Active Allergy Reactions Criticality [...] Repcaterina SureClick 140 MG/ML Subcutaneous Solution Auto-injector (evolocumab)Indicat ions:Dyslipidemia, goal LDL below 70 INJECT 140MG (1 INJECTION) UNDER THE SKIN EVERY 14 DAYS. REMOVE FROM REFRIGERATOR 30 MINUTES PRIOR TO INJECTION 6 mL 3 3 06/14/20 24 Active Pen Quincy 32G X 4 MM Use as directed. [...] ns:Atrial fibrillation, unspecified type (HCC),Anticoagulati on management encounter,senior care current use of anticoagulant [...] morning. 180 Capsule 1 4 Active Nystatin 562337 UNIT/ML Mouth/Throat SuspensionIndicatio ns:Multiple myeloma in relapse [...] Care Team (Late st Contact Info) Description 01/27/2024 10:00 AM EDT Hem/Onc Treatment Hematology/Oncology Treatment, [place] [address] [place] [phone] [place], Chair 11 Hem Onc Scenery [address] [place] [address] Arrived 02/03/2024 8:20 AM EDT Anticoagulation Pharmacy, [address] [place] [address] [place] [address] 02/03/2024 8:30 AM EDT Office Visit Pharmacy, [address] [place] [address] [place] [address] 02/03/2024 10:00 AM EDT Home Visit isinger at Home, [facility] [address] [facility] [place] [address] Sulma Seth, BOBBY 132 [facility] [place] [address] 02/07/2024 9:00 AM EDT Nurse Only Ancillary [address] [place] [address] [place] Nurse [address] [place] [address] 02/15/2024 1:30 PM EDT Telemedicine Hematology [facility]cology [facility] Tyree UGARTE [address] [facility] [place] [address] Rosalio Amaral MD [address] [facility] [place] [id number] 03/16/2024 2:00 PM EDT Telemedicine Hematology [facility] Tyree Jordan [address] [place] [address] Thierno Patel PA-C [address] [place] [address] 04/16/2024 2:30 PM EDT Telemedicine H[facility]ology [facility] Tyree Jordan [address] [place] [address] Rosalio Amaral MD [address] [place] [address] 04/19/2024 9:30 AM EDT Office Visit Cardiology [address] [place] [address] Tim Ruiz PA-C 132 [facility] [place] [address] 05/15/2024 2:00 PM EDT [facility] [address] [place] [address] Thierno Patel, LALA [address] [place] [address] 06/20/2024 3:00 PM EDT Telemedicine Hematology [facility] Tyree Jordan [address] [place] [address] Rosalio Amaral MD [address] [place] [address] 10/30/2024 1:45 PM EST Office Visit Urology, [facility] [place] [address] Devyn Paniagua MD [facility] [address] [place] [address] 01/01/2025 10:20 AM EDT Office Visit Otolaryngology [facility] [address] [place] [address] Haley Aguero PA-C [address] [place] [address] Pending Results Name Type Priority Associated Diagnoses Date /Time COMPREHENSIVE METABOLIC PANEL Lab STAT Multiple myeloma without remission (HCC) 01/27/2024 9:17 AM EDT PHOSPHORUS Lab STAT Multiple myeloma in relapse ([facility]) 01/27/2024 9:17 AM EDT 25-HYDROXY VITAMIN D Lab STAT Lambda light chain myeloma ([facility]) Multiple myeloma without remission ([facility]) 01/27/2024 9:17 AM EDT SERUM PROTEIN ELECTROPHORESIS REFLEX PROFILE Lab STAT Lambda light chain myeloma ([facility]) 01/27/2024 9:17 AM EDT SERUM FREE LIGHT CHAINS Lab STAT Lambda light chain myeloma ([facility]) 01/27/2024 9:17 AM EDT IMMUNOGLOBULIN QUANTITATIVE Lab STAT Multiple myeloma in relapse ([facility]) 01/27/2024 9:17 AM EDT URIC ACID Lab STAT Multiple myeloma in relapse ([facility]) 01/27/2024 9:17 AM EDT LD Lab STAT Multiple myeloma in relapse ([facility]) 01/27/2024 9:17 AM EDT VITAMIN B12 Lab STAT Multiple myeloma in relapse ([facility]) 01/27/2024 9:17 AM EDT BNP, NT-PRO Lab STAT Multiple myeloma in relapse ([facility]) 01/27/2024 9:17 AM EDT TROPONIN T, HIGH SENSITIVITY Lab STAT Multiple myeloma in relapse ([facility]) 01/27/2024 9:17 AM EDT Health Maintenance Due Date Last [...] - PPSV23 or PCV20) 05/22/2024 05/13/2020, 05/22/2019 GFR 07/18/2024 01/16/2024, 050 10/2023, 12/30/2023, Additional history exists TSH 07/25/2024 07/25/2023, 03/12, 01/31/2023, Additional history exists Albumin/Creatinine Ratio 12/29/2024 024, 09/08/2023, 06/22/2023, Additional history exists CKD HGB USE SMARTSET 92401 01/15/202501/26, 01/27/2024, 01/16/2024, Additional history exists CKD PHOS USE SMARTSET 16917 01/15/2025 05/0 02/2024, 01/12/2024, 12/30/2023, Additional history exists Diabetic Eye Exam 01/18/2025 01/19/2024, , 07/11/2023, Additional history exists DTaP,Tdap,and Td Vaccines (2 [...] this encounter Medical Devices Implanted Type Area Obstetric Anaesthetist Device Identifier Shelf Expiration Date Model / Serial / Lot Port Power Mri W/8fr Cath - [id number] Implanted:Qty: 1 on 09/26/2020 by Simone Michelle MD at OR [facility] Right: Chest CR BARD : PERIPHERAL VASCULAR 10/12/2021 [id number] / / [id number] Description:right IJ Lens Intraoc 19.0 - [id number] - [id number] Implanted:Qty: 1 on 02/03/2021 by Chris Sexton MD at OR [facility] Right: Eye [employer]OM[employer] 09/11/2025 [id number] / [id number] / Lens Intraoc 19.0 - [id number] - [id number] Implanted:Qty: 1 on 02/24/2021 by Chris Sexton MD at OR [facility] Left: Eye [employer]USCH [employer] LOMB 10/12/2025 [id number] / [id number] / [id number] System Urolift - [id number] Implanted:Qty: 2 on 03/17/2023 by Devyn Paniagua MD at OR [facility] N/A: Urethra [employer] 11/18/2023 [id number] / / [id number] System Urolift - [id number] Implanted:Qty: 3 on 03/17/2023 by Devyn Paniagua MD at OR [facility] N/A: Urethra [employer] 11/03/2023 [id number] / / [id number] documented as of this encounter Procedures Procedure Name Priority Date/Time Associated Diagnosis Comments DIFFERENTIAL, AUTOMATED STAT 01/27/2024 9:17 AM EDT Multiple myeloma without remission (HCC) CBC STAT 01/27/2024 9:17 AM EDT Multiple myeloma without remission (HCC) CBC STAT 01/27/2024 9:17 AM EDT Multiple myeloma without remission (HCC) documented in this encounter Results * (ABNORMAL) DIFFERENTIAL, AUTOMATED (01/27/2024 9:17 AM EDT) WBC 7.05 4.00 - 10.80 K/uL 01/27/2024 9:24 AM EDT [facility] 56- Neutrophils % 75.6(H) 40.0 - 75.0 % 01/27/2024 9:24 AM EDT [facility] 56- Lymphocytes % 6.0(L) 18.0 - 42.0 % 01/27/2024 9:24 AM EDT [facility] 56- Monocytes % 14.3(H) 1.0 - 11.0 % 01/27/2024 9:24 AM EDT [facility] 56- Eosinophils % 3.0 0.0 - 6.0 % 01/27/2024 9:24 AM EDT [facility] 56 Basophils % 1.1 0.0 - 2.0 % 01/27/2024 9:24 AM EDT [facility] 56- Absolute Neutrophils 5.33 1.80 - 7.70 K/uL 01/27/2024 9:24 AM EDT [facility] 56 Absolute Lymphocytes 0.42(L) 1.00 - 4.80 K/ul 01/27/2024 9:24 AM EDT [facility] 56- Absolute Monocytes 1.01 0.00 - 1.10 K/uL 01/27/2024 9:24 AM EDT [facility] 56- Absolute Eosinophils 0.21 0.00 - 0.70 K/uL 01/27/2024 9:24 AM EDT [facility] 56- Absolute Basophils 0.08 0.00 - 0.20 K/uL 01/27/2024 9:24 AM EDT [facility] 56 Blood Venous blood specimen / Unknown Venipuncture / Unknown 01/27/2024 9:17 AM EDT 01/27/2024 9:17 AM EDT Rosalio Amaral MD LAB BLOOD ORDERABLES [facility] [address] [place] [address] * (ABNORMAL) CBC (01/27/2024 9:17 AM EDT) WBC 7.05 4.00 - 10.80 K/uL 01/27/2024 9:24 AM EDT [facility] 56 RBC 3.88 4.50 - 5.25 M/uL 01/27/2024 9:24 AM EDT [facility] 56 HGB 12.8(L) 14.0 - 16.8 g/dL 01/27/2024 9:24 AM EDT [facility] 56 HCT 38.3(L) 40.0 - 48.4 % 01/27/2024 9:24 AM EDT [facility] 56 MCV 98.7 82.0 - 99.5 fL 01/27/2024 9:24 AM EDT [facility] 56 MCH 33.0 27.0 - 34.0 pg 01/27/2024 9:24 AM EDT [facility] 56 MCHC 33.4 32.0 - 36.0 g/dL 01/27/2024 9:24 AM EDT [facility] 56 RDW 17.2 11.5 - 15.5 % 01/27/2024 9:24 AM EDT [facility] 56 PLT 388 140 - 400 K/uL 01/27/2024 9:24 AM EDT [facility] 56 MPV 9.7 6.6 - 11.1 fL 01/27/2024 9:24 AM EDT [facility] 56 Blood Venous blood specimen / Unknown Venipuncture / Unknown 01/27/2024 9:17 AM EDT 01/27/2024 9:17 AM EDT Rosalio Amaral MD LAB BLOOD ORDERABLES [facility] [address] [place], [place] [id number] documented in this encounter Visit Diagnoses Diagnosis Multiple myeloma without remission (HCC) Multiple myeloma, [...] and were consensually agreed upon. Care Teams Hadoop Admin Relationship Specialty Start Date End Date Jaime Garcia MD [address] [place] [address] [place] [address] PCP - General Family Medicine 10/15/20 documented as of this encounter
--- OUTSIDE RECORDS SUMMARY | 2024-05-13 06:07 | External Medical Summary | Summary of Care ---
Author Name Unknown Organization [facility] Address [address] [place] [address] Phone [phone] Care Team Providers Care Lead Shipper Name Role Phone Jaime Garcia MD Primary Care Provide r Encounter Details Date Type Department Care Team (Late st Contact Info) Description 02/01/2024 Orders Only [facility] [place] [address] Anna Daniel, RN Allergies Active Allergy Reactions Criticality Noted Date Comments Atorvastatin Muscle pain High 03/30/2019 Ezetimibe Muscle pain High 01/25/2020 documented as of this encounter (statuses as of 02/02/2024) Medications Medication Sig Dispensed Refills Start Date [...] mL 3 3 06/14/20 24 Active Pen [place] 32G X 4 MM Use as directed. 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 180 Capsule 1 4 Active Nystatin 445735 UNIT/ML Mouth/Throat SuspensionIndicatio ns:Multiple myeloma in relapse ([facility] [...] as of this encounter (statuses as of 02/02/2024) Active Problems Problem Noted Date Diagnosed Date [...] as of this encounter (statuses as of 02/02/2024) Resolved Problems Problem Noted Date Diagnosed Date [...] as of this encounter (statuses as of 02/02/2024) Immunizations Name Administration Dates Next Due COVID-19, [...] Description 02/03/2024 8:20 AM EDT Anticoagulation Pharmacy, [address] [place] [address] [place] [address] 02/03/2024 8:30 AM EDT Office Visit Pharmacy, [address] [place] [address] [place] [address] 02/15/2024 1:30 PM EDT Telemedicine Hematology Oncology Cancer [facility] [place] [address] [place] [address] Rosalio Amaral MD [address] [place] [address] 03/16/2024 2:00 PM EDT [facility] [place] [address] [place] [address] Thierno Patel PA-C [address] [place] [address] 04/16/2024 2:30 PM EDT Telemedicine Hematology Oncology Cancer [facility] [place] [address] [place] [address] Rosalio Amaral MD [address] [place] [address] 04/18/2024 10:00 AM EDT [facility] [address] [address] Sulma Seth, RN [address] [place] [address] 04/19/2024 9:30 AM EDT Office Visit Cardiology [address] [place] [address] Tim Ruiz PA-C [address] [place] [address] 05/15/2024 2:00 PM EDT Telemedicine [facility] [address] [place] [address] Thierno Patel PA-C [address] [place] [address] 06/20/2024 3:00 PM EDT Telemedicine [facility] [address] [place] [address] Rosalio Amaral MD [address] [place] [address] 10/30/2024 1:45 PM EST [facility] [place] [address] Devyn Paniagua MD [address] [facility] [address] [place] [address] 01/01/2025 10:20 AM EDT Office Visit [facility] [place] [address] Haley Aguero PA-C [address] [place] [address] Health Maintenance Due Date Last Done Comments [...] Additional history exists CKD HGB USE SMARTSET 50363 01/26/202501/26, 01/27/2024, 01/16/2024, Additional history exists CKD PHOS USE SMARTSET 09350 01/26/202501/10, 01/16/2024, 01/12/2024, Additional history exists DTaP,Tdap,and [...] this encounter Medical Devices Implanted Type Area Panel Raiser Operator Device Identifier Shelf Expiration Date Model / Serial / Lot Port Power Mri W/8fr Cath - [id number] Implanted:Qty: 1 on 09/26/2020 by Simone Michelle MD at OR [facility] Right: Chest CR BARD : PERIPHERAL VASCULAR 10/12/2021 [id number] / / [id number] Description:right IJ Lens Intraoc 19.0 - [id number] - [id number] Implanted:Qty: 1 on 02/03/2021 by Chris Sexton MD at OR [facility] Right: Eye [employer] 09/11/2025 [id number] / [id number] / Lens Intraoc 19.0 - [id number] - [id number] Implanted:Qty: 1 on 02/24/2021 by Chris Sexton MD at OR [facility] Left: Eye [employer]USCH [employer]OM[employer] 10/12/2025 [id number] / [id number] / [id number] System Urolift - [id number] Implanted:Qty: 2 on 03/17/2023 by Devyn Paniagua MD at OR [facility] N/A: Urethra [employer] 11/18/2023 [id number] / / [id number] System Urolift - [id number] Implanted:Qty: 3 on 03/17/2023 by Devyn Paniagua MD at OR [facility] N/A: Urethra [employer] 11/03/2023 [id number] / / [id number] documented as of this encounter Additional Health [...] and were consensually agreed upon. Care Teams Lead Shipper Relationship Specialty Start Date End Date Jaime Garcia MD [address] [place] [address] [place] [phone] PCP - General Family Medicine 10/15/20 documented as of this encounter
--- OUTSIDE RECORDS SUMMARY | 2024-05-13 06:07 | External Medical Summary | Summary of Care ---
Author Name Unknown Organization [facility] Address [address] [place] [address] Phone [phone] Care Team Providers Care Lead Mechanical Engineer Name Role Phone Jaime Garcia MD Primary Care Provide r Reason for Visit * Reason Comments Dosage Adjustment In Person (Anticoag Cl inic) Diabetes Follow-Up Encounter Details Date Type Department Care Team (Late st Contact Info) Description 02/03/2024 8:30 AM EDT Office Visit Pharmacy, [address] [place] [phone] [place] [address] Type 2 diabetes mellitus with stage 3b chronic kidney disease, without long-term current use of insulin ([facility])*; Type 2 diabetes mellitus with hemoglobin A1c goal of less than 7.0% ([facility]) Allergies Active Allergy Reactions Criticality [...] mL 3 3 06/14/20 24 Active Pen [place] 32G X 4 MM Use [...] without long-term current use of insulin ([facility]) Use as directed to check [...] ns:Atrial fibrillation, unspecified type (HCC),Anticoagulati on management encounter,skilled nursing current use of anticoagulant therapy,Paroxysmal atrial fibrillation (HCC) Take up to one tablet by mouth daily as directed by anticoagulation clinic 90 Tablet 3 4 Active Dapsone 25 MG Oral TabletIndications:M ultiple myeloma in relapse ([facility]) TAKE ONE TABLET BY MOUTH [...] less than 7.0% ([facility]) Take 2 Tablets by mouth in the morning. 180 Tablet 1 4 Active DULoxetine HCl 20 MG Oral Capsule Delayed Release Particles (Cymbalta) Take 2 Capsules by mouth in the morning. 180 Capsule 1 4 Active Nystatin 837160 UNIT/ML Mouth/Throat SuspensionIndicatio ns:Multiple myeloma in relapse [...] without remission 06/14/2014 Overview: Dr Rodriges/ [facility] DIRECTIVE INFORMATION 10/13/2006 Overview: No, Advance [...] of this encounter Progress Notes * Barbara Jiménezarianna, [facility] - 02/03/2024 8:27 AM EDT Images from the original note were not included. Medication Therapy Disease Management Clinic - Diabetes Management Progress Note Jerardo Ochoa Jr., identified by name and date of , is a 54 year old male being seen for diabetes management/education. Patient presents for return diabetic visit. DIABETES: Current diabetic medications: Metformin ER 500mg - 2 tablets daily eGFR 62 as of 06/27/23 Medication Injection Site: Abdomen Lifestyle: Diet: unchanged Glucose Review/SMBG: Readings obtained from patient device Hypoglycemia: Does your blood sugar go below 70 mg/dL? No Hyperglycemia symptoms present: none Recent Labs Units 07/06/23 0853 04/14/23 1451 03/29/23 0909 HEMOGLOBIN A1C - [facility] % 9.3* 8.2* 8.4* Recent Labs Units 01/27/24 0917 01/16/24 1215 01/12/24 1011 ESTIMATED GLOMERULAR FILTRATION RATE - [facility] mL/min 71 53* 59* CREATININE - [facility] mg/dL 1.2 1.6* 1.4* HYPERTENSION: Patient on ACEi/ARB: not often tolerated with amlyoidosis per cards 09/2020 BP Readings from Last 3 Encounters: 02/01/24 98/62 01/27/24 118/82 01/19/24 128/82 Blood pressure at goal: yes HYPERLIPIDEMIA: Patient is taking moderate or high intensity statin: no, statin intolerant. On Repatha HEALTH MAINTENANCE REVIEW: Health Maintenance Due Topic Date Due Depression Screening 01/05/2022 Diabetic Foot Exam 12/14/2022 COVID-19 Vaccine ( season) 2023 HbA1c 01/05/2024 ASSESSMENT & PLAN: ICD-10-CM 1. Type 2 diabetes mellitus with stage 3b chronic kidney disease, without long- term current use of insulin ([facility]) E11.22 N18.32 2. Type 2 diabetes mellitus with hemoglobin A1c goal of less than 7.0% ([facility]) E11.9 Considerations: CKD, CAD Multiple myeloma (2013) s/p autologous stem cell transplantation Amyloidosis Did not tolerate Ozempic d/t constipation, stopped around May 2023 BG Readings - Blood sugars controlled. Remaining at goal and well controlled off of insulin. Updated A1c ordered to obtain when able. Medications - Reviewed current regimen. Patient notes to sometimes forgetting Metformin and noticeswhen BG readings rise. Confirmed patient is utilizing a pill box. Diet, Exercise, Lifestyle - No significant lifestyle changes since last visit. This patient has met their goal HgA1C and has been graduated from the [facility] Diabetes Management Program effective today Yes. Patient is agreeable to SMBG daily with CGM (DexPAX Streamline G7) Patient aware to contact clinic if any hypoglycemia before next visit. MEDICATION CHANGES: no change Diabetic Medications: Metformin ER 500mg - 2 tablets daily eGFR 62 as of 06/27/23 HEALTH MAINTENANCE INTERVENTIONS: Labs: Ordered & Scheduled: HgA1c Immunizations: Up to Date Foot Exam: Due Eye Exam: Up to Date Annual Wellness Visit: N/A FOLLOW UP: Return to clinic n/a Barbara Jiménez RPh Clinical Pharmacist - Director Global Strategic Publisher Sales Medication Therapy Management Clinic 02/03/2024, 8:27 AM documented in this encounter Plan of Treatment Upcoming Encounters Date Type Department Care Team (Late st Contact Info) Description 02/15/2024 1:30 PM EDT Telemedicine [facility] [address] [place] [address] Rosalio Amaral MD [address] [place] [address] 03/16/2024 8:30 AM EDT Anticoagulation Pharmacy, [address] [place] [address] [place] [address] 03/16/2024 2:00 PM EDT Telemedicine [facility] [address] [facility] [place] [address] Thierno Patel PA-C [address] [place] [address] 04/16/2024 2:30 PM EDT [facility] [address] [place] [address] Rosalio Amaral MD [address] [place] [address] 04/18/2024 10:00 AM EDT Home Visit [facility]inger at [facility] [address] [place] [address] Sulma Seth, BOBBY [address] [place] [address] 04/19/2024 9:30 AM EDT Office Visit Cardiology [address] [place] [address] Tim Ruiz PA-C [address] [place] [address] 05/15/2024 2:00 PM EDT [facility] [address] [place] [address] Thierno Patel PA-C [address] [place] [address] 06/20/2024 3:00 PM EDT [facility] [address] [place] [address] Rosalio Amaral MD [address] [place] [address] 10/30/2024 1:45 PM EST Office Visit Urology, [facility] [address] [place] [address] Devyn Paniagua MD [address] [place] [address] [place] [address] 01/01/2025 10:20 AM EDT Office Visit Otolaryngology [facility] [address] [place] [address] Haley Aguero PA-C [address] [place] [address] Scheduled Orders Name Type Priority Associated Diagnoses Orde r Schedule HEMOGLOBIN A1C Lab Routine Type 2 diabetes mellitus with stage 3b chronic kidney disease, without long-term current use of insulin (HCC) Expected: 02/03/2024, Expires: 02/02/2025 Health Maintenance Due Date Last Done Comments [...] Additional history exists CKD HGB USE SMARTSET 27576 01/26/202501/26, 01/27/2024, 01/16/2024, Additional history exists CKD PHOS USE SMARTSET 35990 01/26/202501/10, 01/16/2024, 01/12/2024, Additional history exists DTaP,Tdap,and [...] this encounter Medical Devices Implanted Type Area Roller Device Identifier Shelf Expiration Date Model / Serial / Lot Port Power Mri W/8fr Cath - [id number] Implanted:Qty: 1 on 09/26/2020 by Simone Michelle MD at OR [facility] Right: Chest CR BARD : PERIPHERAL VASCULAR 10/12/2021 [id number] / / [id number] Description:right IJ Lens Intraoc 19.0 - [id number] - [id number] Implanted:Qty: 1 on 02/03/2021 by Chris Sexton MD at OR [facility] Right: Eye [employer] LOMB 09/11/2025 [id number] / [id number] / Lens Intraoc 19.0 - [id number] - [id number] Implanted:Qty: 1 on 02/24/2021 by Chris Sexton MD at OR [facility] Left: Eye BAUSCH & LOMB 10/12/2025 [id number] / [id number] / [id number] System Urolift - [id number] Implanted:Qty: 2 on 03/17/2023 by Devyn Paniagua MD at OR [facility] N/A: Urethra [employer] 11/18/2023 [id number] / / [id number] System Urolift - [id number] Implanted:Qty: 3 on 03/17/2023 by Devyn Paniagua MD at OR [facility] N/A: Urethra [employer] 11/03/2023 [id number] / / [id number] documented as of this encounter Visit Diagnoses Diagnosis Type 2 diabetes mellitus with stage 3b chronic kidney disease, without long-term current use of insulin (HCC)- Primary Type 2 diabetes mellitus with hemoglobin A1c goal of less than 7.0% ([facility]) documented in this encounter Additional Health Concerns [...] were consensually agreed upon. Care Teams Lead Mechanical Engineer Relationship Specialty Start Date End Date Jaime Garcia MD [address] [place] [address] [place] [address] PCP - General Family Medicine 10/15/20 documented as of this encounter
--- OUTSIDE RECORDS SUMMARY | 2024-05-13 06:07 | External Medical Summary | Summary of Care ---
Author Name Unknown Organization [facility] Address [address] [place] [address] Phone [phone] Care Team Providers Care Organ Grinder Name Role Phone Jaime Garcia MD Primary Care Provide r Encounter Details Date Type Department Care Team (Late st Contact Info) Description 02/07/2024 Orders Only PATIENT PORTAL DO NOT DELETE THIS DEPT USED BY [place] [id number] Allergies Active Allergy Reactions Criticality Noted Date [...] mL 3 3 06/14/20 24 Active Pen [place] 32G X 4 MM Use as directed. [...] morning. 180 Capsule 1 4 Active Nystatin 429162 UNIT/ML Mouth/Throat SuspensionIndicatio ns:Multiple myeloma in relapse [...] 06/14/2014 Overview: Dr Rodriges/ [facility] DIRECTIVE INFORMATION 10/13/2006 Overview: No, Advance [...] Oncology [facility] Tyree UGARTE [address] [facility] [place] [address] Rosalio Amaral MD [address] [place] [address] 03/16/2024 8:30 AM EDT Anticoagulation Pharmacy, [address] [place] [address] [place] [address] 03/16/2024 2:00 PM EDT Telemedicine [facility] [address] [place] [address] Thierno Patel PA-C [address] [place] [address] 04/16/2024 2:30 PM EDT Telemedicine [facility] [address] [place] [address] Rosalio Amaral MD [address] [place] [address] 04/18/2024 10:00 AM EDT [facility] Visit [facility] [place] [address] Sulma Seth, RN [address] [place] [address] 04/19/2024 9:30 AM EDT Office Visit Cardiology [address] [place] [address] Tim Ruiz PA-C [address] [place] [address] 05/15/2024 2:00 PM EDT [facility] [address] [place] [address] Thierno Patel PA-C [address] [place] [address] 06/20/2024 3:00 PM EDT Telemedicine H[facility]ology [facility] [place] [address] [place] [address] Rosalio Amaral MD [address] [facility] [place] [address] 10/30/2024 1:45 PM EST [facility], [facility] [place] [address] Devyn Paniagua MD [address] [place] [address] [place] [address] 01/01/2025 10:20 AM EDT Office Visit Otolaryngology [facility] [address] [facility] [place] [address] Haley Aguero PA-C [address] [place] [address] Health Maintenance Due Date Last Done Comments Cologuard 2015 Fecal Occult Blood Test 2015 Sigmoidoscopy 2015 Depression Screening 01/05/2022 01/05/2021 Diabetic Foot Exam 12/14/2022 12/14/2021, 0 10/15/2020, 06/25/2019 COVID-19 Vaccine ( season) 2023 10/06/2021, 06/24/2021, 06/23/2021 HbA1c 01/05/2024 07/06/2023, 08/11/2022, 03/29/2023, Additional history exists Pneumococcal Vaccine: Pediatrics [...] Additional history exists CKD HGB USE SMARTSET 97598 01/26/202501/26, 01/27/2024, 01/16/2024, Additional history exists CKD PHOS USE SMARTSET 62008 01/26/202501/10, 01/16/2024, 01/12/2024, Additional history exists DTaP,Tdap,and [...] this encounter Medical Devices Implanted Type Area Oil Operator Device Identifier Shelf Expiration Date Model / Serial / Lot Port Power Mri W/8fr Cath - [id number] Implanted:Qty: 1 on 09/26/2020 by Simone Michelle MD at OR [facility] Right: Chest CR BARD : PERIPHERAL VASCULAR 10/12/2021 [id number] / / [id number] Description:right IJ Lens Intraoc 19.0 - [id number] - [id number] Implanted:Qty: 1 on 02/03/2021 by Chris Sexton MD at OR [facility] Right: Eye [employer]CH [employer] LOMB 09/11/2025 [id number] / [id number] / Lens Intraoc 19.0 - [id number] - [id number] Implanted:Qty: 1 on 02/24/2021 by Chris Sexton MD at OR [facility] Left: Eye BAUSCH & LOMB 10/12/2025 [id number] / [id number] / [id number] System Urolift - [id number] Implanted:Qty: 2 on 03/17/2023 by Devyn Paniagua MD at OR [facility] N/A: Urethra [employer] 11/18/2023 [id number] / / [id number] System Urolift - [id number] Implanted:Qty: 3 on 03/17/2023 by Devyn Paniagua MD at OR [facility] N/A: Urethra [employer] 11/03/2023 [id number] / / [id number] documented as of this encounter Additional Health [...] and were consensually agreed upon. Care Teams Organ Grinder Relationship Specialty Start Date End Date Jaime Garcia MD [address] [place] [address] [place] [phone] PCP - General Family Medicine 10/15/20 documented as of this encounter
--- OUTSIDE RECORDS SUMMARY | 2024-05-13 06:08 | External Medical Summary ---
Author Name Unknown Address Unknown Organization K01:[facility] - [address] [place] [address] Laboratory Report Ordering Provider Test Date Status MONIQUE PEREZ 01/27/2024 09:17:43 Final Observation Date Value Abnormality Reference (Units ) Status IgG 01/27/2024 09:17:43 281 Below low normal 700 -1600 (mg/dL) Final IgA 01/27/2024 09:17:43 52 Below low normal 70- 400 (mg/dL) Final IgM 01/27/2024 09:17:43 <5 Below low normal 40- 230 (mg/dL) Final Performing Location [facility] - [address] [place] [address]
--- OUTSIDE RECORDS SUMMARY | 2024-05-13 06:08 | External Medical Summary ---
Author Name Unknown Address Unknown Organization K01:[facility] - [address] [place] [address] Laboratory Report Ordering Provider Test Date Status MONIQUE PEREZ 01/27/2024 09:17:43 Final Observation Date Value Abnormality Reference (Units ) Status Vitamin B12 01/27/2024 09:17:43 [phone] (pg/mL) Final Performing Location [facility] - [address] [place] [address]
--- OUTSIDE RECORDS SUMMARY | 2024-05-13 06:08 | External Medical Summary | Summary of Care ---
Author Name Unknown Organization [facility] Address [address] [place] [address] Phone [phone] Care Team Providers Care Electrical Controls Technician Name Role Phone Jaime Garcia MD Primary Care Provide r Reason for Visit * Reason Comments Follow Up Encounter Details Date Type Department Care Team (Late st Contact Info) Description 01/19/2024 3:00 PM EDT Office Visit Cardiology, [facility] [address] [place] [address] Beth Gibbs CRNP [address] [place] [address] Cardiac amyloidosis (HCC)*; Orthostatic hypotension; Chronic diastolic congestive heart failure (HCC); Coronary artery disease involving yakutat coronary artery of yakutat heart without angina pectoris; Dyslipidemia, goal LDL below 70; PAF (paroxysmal atrial fibrillation) (HCC) Allergies Active Allergy Reactions Criticality Noted Date Comments Atorvastatin Muscle pain High 03/30/2019 Ezetimibe Muscle pain High 01/25/2020 documented as of this encounter (statuses as of 01/19/2024) Medications Medication Sig Dispensed Refills Start Date [...] mL 3 3 06/14/20 24 Active Pen [place] 32G X 4 MM Use as directed. 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 As needed.. 0 4 Active oxyCODONE HCl 5 MG Oral Tablet (Oxy IR)Indications:Mul tiple myeloma in relapse ([facility] [...] morning. 180 Capsule 1 4 Active Nystatin 943752 UNIT/ML Mouth/Throat SuspensionIndicati ons:Multiple myeloma in relapse ([facility]) Swish and swallow 5 mL in the morning and 5 mL at noon and 5 mL in the evening and 5 mL before bedtime. 60 mL 1 4 Active Magnesium Chloride 64 MG Oral Tablet Delayed Release (Mag64)Indications :Multiple myeloma in relapse ([facility] [...] 01/19/20 24 Discontinu ed(Patient preference /discontin uation) documented as of this encounter (statuses as of 01/19/2024) Active Problems Problem Noted Date Diagnosed Date [...] without remission 06/14/2014 Overview: Dr Rodriges/ [facility] ADVANCE DIRECTIVE INFORMATION 10/13/2006 Overview: No, Advance Directive brochure offered , patient declined. Degeneration of lumbosacral intervertebral disc 02/19/2005 documented as of this encounter (statuses as of 01/19/2024) Resolved Problems Problem Noted Date Diagnosed Date [...] as of this encounter (statuses as of 01/19/2024) Immunizations Name Administration Dates Next Due COVID-19, [...] Sign Reading Time Taken Comments Blood Pressure 128/82 01/19/2024 3:10 PM EDT Pulse 92 01/19/2024 3:10 PM EDT Temperature - - Respiratory Rate 20 01/19/2024 3:10 PM EDT Oxygen Saturation - - Inhaled Oxygen Concentration - - Weight 65.1 kg (143 lb 8 oz) 01/19/2024 3:10 PM EDT Height - - Body Mass Index 21.19 12/29/2023 9:09 AM EDT documented in this encounter Progress Notes * Beth Gibbs CRNP - 01/19/2024 3:00 PM EDT Images from the original note were not included. Cardiology Outpatient Visit 01/19/2024 Primary Hand Clerical Verifier: Follows with Tim Ruiz PA-C Follows with [facility] and [facility] as well. Past medical history: Lambda light chain myeloma diagnosed in 2013, status post autologous stem cell transplantation in 2014, systemic amyloidosis, cardiac AL amyloidosis No indication for ppm or ICD per EP 10/05/2022 Orthostatic hypotension Chronic heart failure with preserved EF, NYHA class II Nonobstructive coronary artery disease by cardiac catheterization on 01/10/2018 pAF on coumadin [id number] 3 (CHF, CAD, DM), previously on Multaq, prescribed amiodarone (due to PAF and VT) in , stopped 05/2023 due to possible toxicity with leg weakness CKD stage 3 DEBBY on CPAP DM HLD HPI Very pleasant but medically complex 53-year-old male presenting to the cardiology office today in routine follow-up. Was last evaluated by the undersigned approximately 5 months ago. Carries a history of multiple myeloma and cardiac AL amyloidosis (since 2013, and s/p stem cell transplant in 2014, c urrently on Daratumumab (was previously on carfilzomib but held because of potential issues with heart failure. At his last appointment patient was feeling well following a recent hospital admission. With an increase in midodrine systolics were averaging in the 130s and he was not having any further episodes of lightheadedness or dizziness. Was evaluated by EP in September--amiodarone was previously discontinued due to leg weakness. At his follow-up patient was doing well from the standpoint no medication changes were made. On 01/08/2024 patient sent a message in noting concerns regarding possible atrial fibrillation. Notes that he has been feeling short bursts of fluttering palpitations about every other day. Symptoms last 5-10 seconds and resolve on their own. No other symptoms reported with the palpitations. Started approximately 2 weeks ago. Previously was on amiodarone for atrial fibrillation however this was stopped approximately 10 months ago due to leg weakness which has not improved. Shortness of breath at baseline. Denies chest pain. Since stopping of the torsemide he reports no further episodes of dizziness or lightheadedness. Only takes 20 mg of midodrine in the morning. If he feels like his blood pressure is low he will take an additional 20 mg in the afternoon-- this does not happen often. No syncope or near syncope. No orthopnea, PND, or increased lower extremity edema. No fever, chills, cough, hematochezia, melena, or hemoptysis. Patient is compliant with all medications, and offers no side effects. EKG today showing normal sinus rhythm, 88 beats per minute. Current Outpatient Medications Medication Sig Dispense Refill NSS 0.9 % SOLN with daratumumab 400 MG/20ML SOLN 16 mg/kg Administer intravenously every 14 days. Acyclovir 400 MG Oral Tablet (Zovirax) Take [...] needed for Pain, Severe. 10 Tablet 0 Finasteride 5 MG Oral [...] MINUTES PRIOR TO INJECTION 6 mL 3 Icosapent Ethyl 1 GM Oral [...] later than 6 PM) 600 Tablet 3 Vemlidy 25 MG Oral Tablet [...] 1 Tablet by mouth in the morning. NSS 0.9 % SOLN 100 mL with cefTRIAXone 2 GM SOLR 2 g Administer 2 g intravenously daily. Warfarin Sodium 2.5 MG Oral Tablet (Coumadin) Take up to one tablet by mouth daily as directed by anticoagulation clinic 90 Tablet 3 Dapsone 25 MG Oral Tablet TAKE ONE TABLET BY MOUTH EVERY DAY 90 Tablet 1 Torsemide 10 MG Oral Tablet (Demadex) Take 1 Tablet by mouth in the morning. As needed.. oxyCODONE HCl 5 MG Oral Tablet (Oxy IR) Take 1 Tablet by mouth every 4 hours as needed for breakthrough pain. 30 Tablet 0 Albuterol Sulfate HFA 108 (90 Base) [...] mouth in the morning. 180 Tablet 1 DULoxetine HCl 20 MG Oral Capsule Delayed Release Particles (Cymbalta) Take 2 Capsules by mouth in the morning. 180 Capsule 1 Nystatin 572439 UNIT/ML Mouth/Throat Suspension Swish and swallow 5 mL in the morning and 5 mL at noon and 5 mL in the evening and 5 mL before bedtime. 60 mL 1 Magnesium Chloride 64 MG Oral Tablet Delayed Release (Mag64) Take 1 Tablet by mouth in the morning and 1 Tablet before bedtime. 180 Tablet 3 CPAP every night at bedtime. oxygen IN GAS Use 2 L/min(Oxygen) as directed at bedtime. 1 Each 0 OneTouch Ultra Blue In Vitro Strip (Glucose Blood) Use as directed daily. Test once daily DxE11.9 100 Strip 5 Lancets Test once daily DxE11.9. 100 Each 5 Pen [place] 32G X 4 MM Use as directed. [...] performed by Simone Michelle MD at [facility] COLONOSCOPY, DIAGNOSTIC (RECTUM) 09/09/2021 normal bx / COLONOSCOPY FLEXIBLE PROXIMAL DIAGNOSTIC performed by Philip Graham MD at ENDOSCOPY [facility] CYSTOURETHROSCOPY, W/ TRANSPROSTATIC IMPLANT N/A 03/17/2023 CYSTOURETHROSCOPY, WITH INSERTION OF PERMANENT ADJUSTABLE TRANSPROSTATI IMPLANT; SINGLE IMPLANT performed by Devyn Paniagua MD at OR [facility] EGD, FLEXIBLE, DIAGNOSTIC 10/15/2019 normal bx / ESOPHAGOGASTRODUODENOSCOPY (EGD), FLEXIBLE, TRANSORAL, DIAGNOSTIC performed by Mellissa Mari MD at ENDOSCOPY [facility] EGD, FLEXIBLE, DIAGNOSTIC N/A 05/06/2023 esophageal plaques, biopsies confirm rebeca/EGD/MN EGD, W/ENDOSCOPIC US N/A 05/06/2023 multiple cystic lesion pancreatic head and body/EUS/MN INFORMATION vasectomy reversal INFORMATION status post autologous stem cell transplantation in 2015 - per cardiology note INSER TUNN ACC DEV;5 YRS/OLDER N/A 09/26/2020 INSERT TUNNELED CENTRAL VENOUS ACCESS WITH SUBQ PORT performed by Simone Michelle MD at OR [facility] MRI L SPINE W WO CONTRAST Drake, was told he had a herniated disc REMOVE CATARACT, INSERT LENS PROSTH Right 02/03/2021 RIGHT EXTRACAPSULAR CATARACT REMOVAL WITH INTRAOCULAR LENS performed by Chris Sexton MD at [facility] REMOVE CATARACT, INSERT LENS PROSTH Left 02/24/2021 LEFT EXTRACAPSULAR CATARACT REMOVAL WITH INTRAOCULAR LENS performed by Chris Sexton MD at [facility] VASECTOMY 1999 Social History Tobacco [...] those noted in HPI. Physical Exam BP 128/82 (BP Site: Left Arm, BP Position: Sitting, BP Cuff Size: Regular) | Pulse 92 | Resp 20 | Wt 65.1 kg (143 lb 8 oz) | BMI 21.19 kg/m | BSA 1.78 m General: No acute distress. A+Ox3. HEENT: Normocephalic. Atraumatic. Conjunctiva and sclera clear. NECK: No carotid bruits. No JVD. Carotid upstrokes are brisk. Heart: RRR. S1 and S2 noted without murmur, rubs, gallops. Lungs: Clear to auscultation. No wheezes, rhonchi, rales. Abdomen: Normal bowel sounds. Soft. Nontender. No masses or organomegaly. No abdominal bruits. Extremities: No edema. No clubbing or cyanosis. Pulses: radial=2/4, posterior tibial=2/4, dorsalis pedis = 2/4. NEURO: No focal deficits. PSYCH: Normal. Lab data/imaging study review: Echo at [facility] 08/27/2023 March 11, 2023 TTE Interpretation Summary [...] status post autologous stem cell transplantation in 2015, systemic amyloidosis, cardiac AL amyloidosis. Follows with heme. -No indication for ppm or ICD per EP, 10/05/2022 -Recent hospital admission for orthostatic hypotension, midodrine increased, blood pressures improved with the increase in midodrine Continue midodrine-- currently taking 20 mg in the morning and 20 mg as needed in the afternoon, okay to continue as he is doing. Patient tends to retain fluid in the [...] congestive heart failure (HCC) -NYHA class 2-3 -Euvolemic on exam. Continue torsemide 10 mg daily as needed, adjusted by Nephrology on 11/21/2023 4. Coronary artery disease involving yakutat coronary artery of yakutat heart without angina pectoris -Nonobstructive coronary artery disease by cardiac catheterization on 01/10/2018 -Stable, no angina 5. Dyslipidemia, goal LDL below 70 -LDL 33, triglycerides 233, improved. -Statin and Zetia intolerance Continue Repatha and Vascepa as ordered 6. Paroxysmal atrial fibrillation (HCC) -PAF on coumadin [id number] 3 (CHF, CAD, DM)-- on warfarin, continue -Previously on Multaq, prescribed amiodarone (due to PAF and VT) 10/2022, stopped 05/2023 due to possible toxicity with leg weakness. -Intolerant to BB due to fatigue -Follows with EP-- Last evaluated in September -symptoms questionable for symptomatic PACs/PVCs versus reoccurrence of atrial fibrillation-- EKG today showing normal sinus rhythm Fourteen day Zio monitor ordered to rule out recurrence of atrial fibrillation. Medication options limited due to intolerance to beta-teto therapy as well as heart failure (recommend avoidance of CCB). Continue Coumadin-- INR managed by [facility] clinic. The patient agrees to the above plan and will call with additional questions or concerns. ER with all emergencies advised. Check-out note: Keep follow up as scheduled. I spent a total of 40 minutes on the date of service in preparation, delivery, and documentation ofthe care provided to Jerardo Ochoa Jr. excluding any time spent in the performance of separately billed services. SU Diaz, Department of Cardiology This chart was completed in part utilizing [employer] Speech Voice Recognition Software. Grammatical errors, random [...] documented in this encounter Nursing Notes * Jayshree Sosa CMA - 01/19/2024 3:09 PM EDT Examination Room: 7 Name: Jerardo Ochoa Jr. Date of : (1970). Reason for Visit: follow up Interim Hospitalization(s): denies Problems/Concerns: palpitations restarted approx 2 weeks ago Chest Pain/SOB: denies [facility] [...] Description 01/27/2024 9:00 AM EDT Laboratory Laboratory Carla Renae [place] [address] [place] [id number] [place], Lab Scenery [address] [place] [address] 01/27/2024 10:00 AM EDT [facility] Visit [facility] [address] [place] [address] Sulma Seth, BOBBY [address] [place] [address] 01/27/2024 10:00 AM EDT Hem/Onc Treatment Hematology/Oncology Treatment, [place] [address] [place] [phone] [place], Chair 11 Hem Onc Scenery [address] [place] [address] 02/03/2024 8:20 AM EDT Anticoagulation Pharmacy, [address] [place] [address] [place] [address] 02/03/2024 8:30 AM EDT Office Visit Pharmacy, [address] [place] [address] [place] [address] 02/07/2024 9:00 AM EDT Nurse Only Ancillary [address] [place] [address] [place] [facility] [address] [place] [address] 02/15/2024 1:30 PM EDT Telemedicine Hematology [facility]cology [facility] Tyree UGARTE [address] [facility] [place] [phone] Rosalio Amaral MD [address] [facility] [place] [address] 03/16/2024 2:00 PM EDT Telemedicine Hematology [facility] Tyree [place] [address] [place] [address] Thierno Patel PA-C [address] [place] [address] 04/16/2024 2:30 PM EDT Telemedicine Hematology [facility] Tyree [place] [address] [place] [address] Rosalio Amaral MD [address] [place] [address] 04/19/2024 9:30 AM EDT Office Visit Cardiology [address] [place] [address] Tim Ruiz PA-C [address] [facility] [place] [address] 05/15/2024 2:00 PM EDT [facility] [address] [place] [address] Thierno Patel, LALA [address] [place] [address] 06/20/2024 3:00 PM EDT Telemedicine [facility] [place] [address] [place] [address] Rosalio Amaral MD [address] [place] [address] 10/30/2024 1:45 PM EST Office Visit [facility], [facility] [place] [address] Devyn Paniagua MD 27 [facility] [address] [place] [address] 01/01/2025 10:20 AM EDT Office Visit Otolaryngology [facility] [address] [place] [address] Haley Aguero PA-C [address] [place] [address] Scheduled Orders Name Type Priority Associated Diagnoses Orde r Schedule EKG EKG Routine PAF (paroxysmal atrial fibrillation) (HCC) Ordered: 01/19/2024 EXTERNAL EKG 8 TO 15 DAYS Holter Routine Cardiac amyloidosis (HCC) Orthostatic hypotension Chronic diastolic congestive heart failure (HCC) Coronary artery disease involving yakutat coronary artery of yakutat heart without angina pectoris Dyslipidemia, goal LDL below 70 PAF (paroxysmal atrial fibrillation) (HCC) Expected: 01/20/2024 (Approximate), Expires: 01/18/2025 Health Maintenance Due Date Last Done Comments [...] 07/11/2024 07/11/2023, , 07/05/2022, Additional history exists GFR 07/18/2024 01/16/2024, 05/0 10/2023, 12/30/2023, Additional history exists TSH 07/25/2024 07/25/2023, 03/12, 01/31/2023, Additional history exists Albumin/Creatinine Ratio 12/29/2024 024, 09/08/2023, 06/22/2023, Additional history exists CKD HGB USE SMARTSET 51933 01/15/202501/15, 01/16/2024, 01/12/2024, Additional history exists CKD PHOS USE SMARTSET 40749 01/15/2025 05/0 02/2024, 01/12/2024, 12/30/2023, Additional history exists DTaP,Tdap,and Td Vaccines (2 [...] this encounter Medical Devices Implanted Type Area Package Clerk Device Identifier Shelf Expiration Date Model / Serial / Lot Port Power Mri W/8fr Cath - [id number] Implanted:Qty: 1 on 09/26/2020 by Simone Michelle MD at OR [facility] Right: Chest CR BARD : PERIPHERAL VASCULAR 10/12/2021 [id number] / / [id number] Description:right IJ Lens Intraoc 19.0 - [id number] - [id number] Implanted:Qty: 1 on 02/03/2021 by Chris Sexton MD at [facility] Right: Eye [employer] 09/11/2025 [id number] / [id number] / Lens Intraoc 19.0 - [id number] - [id number] Implanted:Qty: 1 on 02/24/2021 by Chris Sexton MD at OR [facility] Left: Eye [employer] 10/12/2025 [id number] / [id number] / [id number] System Urolift - [id number] Implanted:Qty: 2 on 03/17/2023 by Devyn Paniagua MD at OR [facility] N/A: Urethra [employer] 11/18/2023 [id number] / / [id number] System Urolift - [id number] Implanted:Qty: 3 on 03/17/2023 by Devyn Paniagua MD at OR [facility] N/A: Urethra [employer] 11/03/2023 [id number] / / [id number] documented as of this encounter Visit Diagnoses Diagnosis Cardiac amyloidosis (HCC)- Primary Other amyloidosis Orthostatic hypotension Chronic diastolic congestive heart failure (HCC) Chronic diastolic heart failure Coronary artery disease involving yakutat coronary artery of yakutat heart without angina pectoris Dyslipidemia, goal LDL below 70 Other and unspecified hyperlipidemia PAF (paroxysmal atrial fibrillation) (HCC) Atrial fibrillation [...] and were consensually agreed upon. Care Teams Electrical Controls Technician Relationship Specialty Start Date End Date Jaime Garcia MD [address] [place] [address] [place] [phone] PCP - General Family Medicine 10/15/20 documented as of this encounter"
--- OUTSIDE RECORDS SUMMARY | 2024-05-13 06:08 | External Medical Summary ---
Author Name Unknown Address Unknown Organization [id number]:LAB[facility]ATORY [facility] [place] - [address] [place] [address] Laboratory Report Ordering Provider Test Date Status MONIQUE PEREZ 01/27/2024 09:18:08 Final Normal: <30 mg/g creatinine< br/>High: 30-300 mg/g creatinine
Very High: >300 mg/g creatinine
Nephrotic: >2200 mg/g creatinine Observation Date Value Abnormality Reference (Units ) Status Albumin, Urine 01/27/2024 09:18:08 16.98 (mg/dL) Final Creatinine, Urine 01/27/2024 09:18:08 8 (mg/dL) Final Albumin/Creatinine [Mass Ratio] in Urine 01/27/2024 09:18:08 2123 Above high normal <30 (mg/g Creat) Final Performing Location [facility]ATORY [facility] [place] - [address] [place] [address]
--- OUTSIDE RECORDS SUMMARY | 2024-05-13 06:08 | External Medical Summary ---
Author Name Unknown Address Unknown Organization [id number][place] [place] [address] [place] [address] Laboratory Report Ordering Provider Test Date Status MONIQUE PEREZ 01/27/2024 09:17:43 Final Deficient: <20 ng/mL
Ins ufficient: 20-29 ng/mL
Recommended/Optimum:30-50 ng/mL

Vitamin D intoxication is rare. If suspicious of Vitamin D toxicity, evaluation of serum Calcium and PTH is recommended. Observation Date Value Abnormality Reference (Units ) Status 25-OH Vitamin D total 01/27/2024 09:17:43 38 >19 (ng/mL) Final Performing Location LABORATORY C - [address] [place] [address]
--- OUTSIDE RECORDS SUMMARY | 2024-05-13 06:08 | External Medical Summary | Summary of Care ---
Author Name Unknown Organization [facility] Address [address] [place] [address] Phone [phone] Care Team Providers Care Back Tender Cloth Printing Name Role Phone Jaime Garcia MD Primary Care Provide r Reason for Visit * Reason Comments Chemotherapy Darzalex Faspro/ Cyt oxan/ HOLD Xgeva * Episode Based Medications (Routine) - Authorized Specialty Diagnoses / Procedures Referred By Contac t Referred To Contact Diagnoses Lambda light chain myeloma (HCC) AL amyloidosis (HCC) Procedures [place] DARATUMUMAB, HYALURONIDASE [place] CYCLOPHOSPHAMIDE 100 MG INJ [place] INJ, CYCLOPHOSPHAMIDE, NOS Rosalio Amaral MD [address] [place], [place] [address] [address] Anc Hem/Onc Scenesukhdeep Renae DEPT CLOSED - 07/26/23 [address] [place] [address] Referral ID Status Reason Start Date Expiration Date V isits Requested Visits Authorized [id number] Authorized 10/21/2023 10/21/2024 999 999 Encounter Details Date Type Department Care Team (Latest Contact Info) Description 12/30/2023 1:45 PM EDT Hem/Onc Treatment Hematology/Oncolog y Treatment, [place] [address] [place] [address] Batool, Chair 2 Hem Onc Scenery [address] [place] [address] Lambda light chain myeloma (HCC)*; AL amyloidosis [...] less than 7.0% ([facility]) Use as directed daily. Test once daily DxE11.9 100 Strip 03/02/20 Active LancetsIndication s:Type 2 diabetes mellitus with hemoglobin A1c goal of less than 7.0% ([facility]) Test once daily DxE11.9. 100 Each 5 03/02/20 21 Active Acyclovir 400 MG Oral Tablet (Zovirax)Indicati ons:Lambda light chain myeloma (HCC) Take one tablet once daily 180 Tablet 3 12/15/19 22 Active diphenhydrAMINE HCl 50 MG Oral Capsule [...] go to the Emergency room. 2 Each 10/05/19 23 Active Dexamethasone 4 MG Oral [...] Pain, Severe. 10 Tablet 0 03/17/20 Active Additional Information Patient not taking.Reported on 12/16/2023 Finasteride 5 MG Oral Tablet (Proscar) TAKE 1 TABLET BY MOUTH IN THE MORNING 90 Tablet 3 04/12/20 23 024 Active Cholecalciferol 50 MCG (2000 UT) [...] TO INJECTION 6 mL 3 06/15/20 23 Active Pen [place] 32G X 4 MM Use as directed. Inject Lantus once daily. 50 Each 3 07/19/20 23 Active Icosapent Ethyl 1 GM Oral Capsule (Vascepa)Indicati ons:Hyperlipidemi a with target LDL less than 70 Take 2 Capsules by mouth 2 times a day with morning and evening meals. Swallow capsules whole, do not open or break. 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 As needed.. 0 11/21/19 24 Active oxyCODONE HCl 5 MG Oral Tablet (Oxy IR)Indications:Mu ltiple myeloma in relapse (HCC) Take 1 Tablet by mouth every 4 hours as needed for breakthrough pain. 30 Tablet 0 11/23/19 24 Active Albuterol Sulfate HFA 108 [...] grams weekly. 480 mL 0 09/16/19 23 024 Discontinued Hizentra 2 GM/10ML Subcutaneous Solution (immune globulin human 20%) Patient is to subcutaneously inject one 2 gram vial plus one four gram vial for a total of 6 grams weekly after loading dose of 12 grams twice weekly x four weeks . 120 mL 12 09/16/19 23 024 Discontinued DULoxetine HCl 20 MG Oral Capsule Delayed [...] 1 07/11/20 23 024 Discontinued(Re fill) Nystatin 784935 UNIT/ML Mouth/Throat SuspensionIndicat ions:Multiple myeloma in relapse (HCC) Swish and swallow 5 mL in the morning and 5 mL at noon and 5 mL in the evening and 5 mL before bedtime. 60 mL 1 09/08/20 23 024 Discontinued(Re fill) Advanced Probiotic 10 Oral Capsule 1 Capsule in the morning. 0 08/18/20 23 024 Discontinued Allopurinol 100 MG [...] myeloma without remission 06/14/2014 Overview: Dr Rodriges/ [facility] DIRECTIVE [...] 01/19/2024 3:00 PM EDT Office Visit Cardiology, [facility] [place] [address] Beth Gibbs CRNP 132 [facility] [place] [address] 01/27/2024 9:00 AM EDT Laboratory Laboratory [facility] [place] [address] [place] [id number] [facility] Scene [address] [facility] [place] [address] 01/27/2024 10:00 AM EDT Home Visit [facility] [address] [facility] [place] [address] Sulma Seth, RN [address] [place] [address] 01/27/2024 10:00 AM EDT Hem/Onc Treatment Hematology/Oncology Treatment, [place] [address] [place] [address] Park, Chair 11 Hem Onc Scenery [address] [facility] [address] 02/03/2024 8:20 AM EDT Anticoagulation Pharmacy, [address] [place] [address] [place] [address] 02/03/2024 8:30 AM EDT Office Visit Pharmacy, [address] [place] [address] [place] [address] 02/07/2024 9:00 AM EDT Nurse Only Ancillary [address] [place] [address] [place], Nurse [address] [place] [address] 02/15/2024 1:30 PM EDT Telemedicine [facility] Tyree UGARTE [address] [place] [address] Rosalio Amaral MD [address] [place] [id number] 03/16/2024 2:00 PM EDT Telemedicine [facility] UGARTE [address] [place] [address] Thierno Patel, LALA [address] [place] [address] 04/16/2024 2:30 PM EDT Telemedicine [facility] [address] [place] [address] Rosalio Amaral MD [address] [place] [address] 04/19/2024 9:30 AM EDT Office Visit Cardiology [address] [place] [address] Tim Ruiz PA-C [address] [place] [address] 05/15/2024 2:00 PM EDT Telemedicine [facility] [address] [place] [address] Thierno Patel PA-C [address] [place] [address] 06/20/2024 3:00 PM EDT Telemedicine [facility] [address] [place] [address] Rosalio Amaral MD [address] [place] [address] 10/30/2024 1:45 PM EST Office Visit Urology, [facility] [address] [place] [address] Devyn Paniagua MD 27 [facility] [address] [place] [address] 01/01/2025 10:20 AM EDT Office Visit Otolaryngology [facility] [address] [place] [address] Haley Aguero PA-C [address] [place] [address] Health Maintenance Due Date Last Done Comments [...] Additional history exists CKD HGB USE SMARTSET 01664 01/15/202501/15, 01/16/2024, 01/12/2024, Additional history exists CKD PHOS USE SMARTSET 15149 01/15/2025 05/0 02/2024, 01/12/2024, 12/30/2023, Additional history [...] this encounter Medical Devices Implanted Type Area Food Counter Worker Device Identifier Shelf Expiration Date Model / Serial / Lot Port Power Mri W/8fr Cath - [id number] Implanted:Qty: 1 on 09/26/2020 by Simone Michelle MD at OR [facility] Right: Chest CR BARD : PERIPHERAL VASCULAR 10/12/2021 [id number] / / [id number] Description:right IJ Lens Intraoc 19.0 - [id number] - [id number] Implanted:Qty: 1 on 02/03/2021 by Chris Sexton MD at OR [facility] Right: Eye BAUSCH & LOMB 09/11/2025 [id number] / [id number] / Lens Intraoc 19.0 - [id number] - [id number] Implanted:Qty: 1 on 02/24/2021 by Chris Sexton MD at OR [facility] Left: Eye BAUSCH & LOMB 10/12/2025 [id number] / [id number] / [id number] System Urolift - [id number] Implanted:Qty: 2 on 03/17/2023 by Devyn Paniagua MD at OR [facility] N/A: Urethra [employer] 11/18/2023 EF818-8 / / [id number] System Urolift - [id number] Implanted:Qty: 3 on 03/17/2023 by Devyn Paniagua MD at OR [facility] N/A: Urethra [employer] 11/03/2023 AD171-9 / / [id number] documented as of this encounter Visit Diagnoses [...] PM EDT 500 mg 500 mL/hr Daratumumab-hyaluronida se-fihj (Darzalex Faspro) 1800 mg-55533 units/ 15 ml subcut inj 15 mL, [...] and were consensually agreed upon. Care Teams Back Tender Cloth Printing Relationship Specialty Start Date End Date Jaime Garcia MD [address] [place] [address] [place] [address] PCP - General Family Medicine 10/15/20 documented as of this encounter
--- OUTSIDE RECORDS SUMMARY | 2024-05-13 06:08 | External Medical Summary | Summary of Care ---
Author Name Unknown Organization [facility] Address [address] [place] [address] Phone [phone] Care Team Providers Care Station Master Name Role Phone Jaime Garcia MD Primary Care Provide r Reason for Visit * Reason Comments Chemotherapy Darzalex Faspro/ Cyt oxan/ HOLD Xgeva * Episode Based Medications (Routine) - Authorized Specialty Diagnoses / Procedures Referred By Contac t Referred To Contact Diagnoses Lambda light chain myeloma (HCC) AL amyloidosis (HCC) Procedures [place] DARATUMUMAB, HYALURONIDASE [place] CYCLOPHOSPHAMIDE 100 MG INJ [place] INJ, CYCLOPHOSPHAMIDE, NOS Rosalio Amaral MD [address] [place], [place] [address] [address] Anc Hem/Onc Scenesukhdeep Renae DEPT CLOSED - 07/26/23 [address] [place] [address] Referral ID Status Reason Start Date Expiration Date V isits Requested Visits Authorized [id number] Authorized 10/21/2023 10/21/2024 999 999 Encounter Details Date Type Department Care Team (Latest Contact Info) Description 12/30/2023 1:45 PM EDT Hem/Onc Treatment Hematology/Oncolog y Treatment, [place] [address] [place] [address] Bat[place], Chair 2 Hem Onc Scenery [address] [place] [address] Lambda light chain myeloma (HCC)*; AL amyloidosis [...] less than 7.0% ([facility]) Use as directed daily. Test once daily DxE11.9 100 Strip 03/02/20 Active LancetsIndication s:Type 2 diabetes mellitus with hemoglobin A1c goal of less than 7.0% ([facility]) Test once daily DxE11.9. 100 Each [...] 6 mL 3 06/15/20 23 Active Pen [place] 32G X 4 MM Use as directed. 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 [address] [facility] [place] [address] Beth Gibbs CRNP 132 [facility] [place] [address] 01/27/2024 9:00 AM EDT Laboratory Laboratory [facility] [place] [address] [place] [phone] [facility] Scene [address] [facility] [place] [address] 01/27/2024 10:00 AM EDT [facility] Visit [facility] [address] [facility] [place] [address] Sulma Seth, RN [address] [place] [address] 01/27/2024 10:00 AM EDT Hem/Onc Treatment Hematology/Oncology Treatment, [place] [address] [place] [address] [place], Chair 11 Hem Onc Scenery [address] [facility] [address] 02/03/2024 8:20 AM EDT Anticoagulation Pharmacy, [address] [place] [address] [place] [address] 02/03/2024 8:30 AM EDT Office Visit Pharmacy, [address] [place] [address] [place] [address] 02/07/2024 9:00 AM EDT Nurse Only Ancillary [address] [place] [address] [place], Nurse [address] [place] [address] 02/15/2024 1:30 PM EDT Telemedicine [facility] Tyree UGARTE [address] [place] [address] Rosalio Amaral MD [address] [place] [id number] 03/16/2024 2:00 PM EDT Telemedicine H[facility] Tyree UGARTE [address] [place] [address] Thierno Patel, LALA [address] [place] [address] 04/16/2024 2:30 PM EDT [facility] [address] [place] [address] Rosalio Amaral MD [address] [place] [address] 04/19/2024 9:30 AM EDT Office Visit Cardiology [address] [place] [address] Tim Ruiz PA-C [address] [place] [address] 05/15/2024 2:00 PM EDT Telemedicine [facility] [address] [place] [address] Thierno Patel PA-C [address] [place] [address] 06/20/2024 3:00 PM EDT Telemedicine [facility] [address] [place] [address] Rosalio Amaral MD [address] [place] [address] 10/30/2024 1:45 PM EST Office Visit Urology, [facility] [address] [place] [address] Devyn Paniagua MD 27 [facility] [address] [place] [address] 01/01/2025 10:20 AM EDT Office Visit Otolaryngology [facility] [address] [place] [address] Haley Aguero PA-C [address] [place] [address] Health Maintenance Due Date Last Done Comments [...] Additional history exists CKD HGB USE SMARTSET 56010 01/15/202501/15, 01/16/2024, 01/12/2024, Additional history exists CKD PHOS USE SMARTSET 72669 01/15/2025 05/0 02/2024, 01/12/2024, 12/30/2023, Additional history [...] this encounter Medical Devices Implanted Type Area Continuity Director Device Identifier Shelf Expiration Date Model / Serial / Lot Port Power Mri W/8fr Cath - [id number] Implanted:Qty: 1 on 09/26/2020 by Simone Michelle MD at OR [facility] Right: Chest CR BARD : PERIPHERAL VASCULAR 10/12/2021 [id number] / / [id number] Description:right IJ Lens Intraoc 19.0 - [id number] - [id number] Implanted:Qty: 1 on 02/03/2021 by Chris Sexton MD at OR [facility] Right: Eye BAUSCH [employer] LOMB 09/11/2025 [id number] / [id number] / Lens Intraoc 19.0 - [id number] - [id number] Implanted:Qty: 1 on 02/24/2021 by Chris Sexton MD at OR [facility] Left: Eye BAUSCH & LOMB 10/12/2025 [id number] / [id number] / [id number] System Urolift - [id number] Implanted:Qty: 2 on 03/17/2023 by Devyn Paniagua MD at OR [facility] N/A: Urethra [employer] 11/18/2023 FE012-6 / / [id number] System Urolift - [id number] Implanted:Qty: 3 on 03/17/2023 by Devyn Paniagua MD at OR [facility] N/A: Urethra [employer] 11/03/2023 JR796-2 / / [id number] documented as of this encounter Visit Diagnoses [...] 500 mL/hr Daratumumab-hyaluronida se-fihj (Darzalex Faspro) 1800 mg-25780 units/ 15 ml subcut inj 15 mL, [...] and were consensually agreed upon. Care Teams Station Master Relationship Specialty Start Date End Date Jaime Garcia MD [address] [place] [address] [place] [address] PCP - General Family Medicine 10/15/20 documented as of this encounter
--- OUTSIDE RECORDS SUMMARY | 2024-05-13 06:08 | External Medical Summary ---
Author Name Unknown Address Unknown Organization K09[facility] [address] [place] [address] Laboratory Report Ordering Provider Test Date Status MONIQUE PEREZ 01/27/2024 09:17:43 Final Observation Date Value Abnormality Reference (Units ) Status Phosphate 01/27/2024 09:17:43 2.9 2.5-4.8 (m g/dL) Final Performing Location [facility] [place] [address]
--- OUTSIDE RECORDS SUMMARY | 2024-05-13 06:08 | External Medical Summary ---
Author Name Unknown Address Unknown Organization K01:LABORATORY [facility] - [address] [facility] [address] Laboratory Report Ordering Provider Test Date Status MONIQUE PEREZ 01/27/2024 09:17:43 Final Observation Date Value Abnormality Reference (Units) Status PARAPROTEIN NORMAL/ABNORMAL 09:17:43 Abnormal Abnormal Normal Final Protein 4 09:17:43 5.9 Below low normal 6.0-8.3 (g/dL) Final Albumin/Protein.total [Pure mass fraction] in Serum or Plasma by Electrophoresis 4 09:17:43 3.49 3.30-4.40 (g/dL) Final Alpha 1 globulin/Protein.tota l [Pure mass fraction] in Serum or Plasma by Electrophoresis 4 09:17:43 0.25 0.10-0.30 (g/dL) Final Alpha 2 globulin/Protein.tota l [Pure mass fraction] in Serum or Plasma by Electrophoresis 4 09:17:43 1.07 Above high normal 0.60-1.00 (g/dL) Final Beta globulin/Protein.tota l [Pure mass fraction] in Serum or Plasma by Electrophoresis 4 09:17:43 0.80 0.80-1.30 (g/dL) Final Gamma globulin/Protein.tota l [Pure mass fraction] in Serum or Plasma by Electrophoresis 4 09:17:43 0.29 Below low normal 0.70-1.70 (g/dL) Final Protein Fractions [Interpretation] in Serum or Plasma by Electrophoresis Narrative 4 09:17:43 Abnormal. A paraprotein is present that has been previously identified as a monoclonal IgG kappa. Paraprotein concentration is detectable, but less than 0.5 g/dL, unable to be accurately quantified by this method. Decreased gamma fraction. Final Performing Location [facility] - [address] [facility] [address]
--- OUTSIDE RECORDS SUMMARY | 2024-05-13 06:08 | External Medical Summary | Summary of Care ---
Author Name Unknown Organization [facility] Address [address] [place] [address] Phone [phone] Care Team Providers Care Hemodialysis Charge Nurse Name Role Phone Jaime Garcia MD Primary Care Provide r Reason for Visit * Reason Comments Chemotherapy Darzalex Faspro/ Cyt oxan/ HOLD Xgeva * Episode Based Medications (Routine) - Authorized Specialty Diagnoses / Procedures Referred By Contac t Referred To Contact Diagnoses Lambda light chain myeloma (HCC) AL amyloidosis (HCC) Procedures [place] DARATUMUMAB, HYALURONIDASE [place] CYCLOPHOSPHAMIDE 100 MG INJ [place] INJ, CYCLOPHOSPHAMIDE, NOS Rosalio Amaral MD [address] [place], [place] [address] [address] Anc Hem/Onc Scenesukhdeep Renae DEPT CLOSED - 07/26/23 [address] [place] [address] Referral ID Status Reason Start Date Expiration Date V isits Requested Visits Authorized [id number] Authorized 10/21/2023 10/21/2024 999 999 Encounter Details Date Type Department Care Team (Latest Contact Info) Description 12/30/2023 1:45 PM EDT Hem/Onc Treatment Hematology/Oncolog y Treatment, [place] [address] [place] [address] [place], Chair 2 Hem Onc Scenery [address] [place] [address] Lambda light chain myeloma (HCC)*; AL amyloidosis [...] 6 mL 3 06/15/20 23 Active Pen [place] 32G X 4 MM Use as directed. 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,Paroxysma l atrial [...] 1 07/11/20 23 024 Discontinued(Re fill) Nystatin 664436 UNIT/ML Mouth/Throat SuspensionIndicat ions:Multiple myeloma in relapse [...] remission 06/14/2014 Overview: Dr Rodriges/ [facility] DIRECTIVE INFORMATION 10/13/2006 Overview: No, [...] 01/19/2024 3:00 PM EDT Office Visit Cardiology, [facility] [address] [facility] [place] [address] Beth Gibbs CRNP 132 [facility] [place] [address] 01/27/2024 9:00 AM EDT Laboratory Laboratory [facility] [place] [address] [place] [phone] [facility] Scene [address] [facility] [place] [address] 01/27/2024 10:00 AM EDT Home Visit [facility] [address] [facility] [place] [address] Sulma Seth, RN [address] [place] [address] 01/27/2024 10:00 AM EDT Hem/Onc Treatment Hematology/Oncology Treatment, [place] [address] [place] [address] [place], Chair 11 Hem Onc Scenery [address] [facility] [address] 02/03/2024 8:20 AM EDT Anticoagulation Pharmacy, [address] [place] [address] [place] [address] 02/03/2024 8:30 AM EDT Office Visit Pharmacy, [address] [place] [address] [place] [address] 02/07/2024 9:00 AM EDT Nurse Only Ancillary [address] [place] [address] [place], Nurse [address] [place] [address] 02/15/2024 1:30 PM EDT Telemedicine [facility] Tyree UGARTE [address] [place] [address] Rosalio Amaral MD [address] [place] [id number] 03/16/2024 2:00 PM EDT Telemedicine H[facility]ology [facility] Tyree UGARTE [address] [place] [address] Thierno Patel, LALA [address] [place] [address] 04/16/2024 2:30 PM EDT Telemedicine [facility] [address] [place] [address] Rosalio Amaral MD [address] [place] [address] 04/19/2024 9:30 AM EDT Office Visit Cardiology [address] [place] [address] Tim Ruiz PA-C [address] [place] [address] 05/15/2024 2:00 PM EDT Telemedicine [facility]ology [facility] [address] [place] [address] Thierno Patel PA-C [address] [place] [address] 06/20/2024 3:00 PM EDT Telemedicine [facility]ology [facility] [address] [place] [address] Rosalio Amaral MD [address] [place] [address] 10/30/2024 1:45 PM EST Office Visit Urology, [facility] [address] [place] [address] Devyn Paniagua MD 27 [facility] [address] [place] [address] 01/01/2025 10:20 AM EDT Office Visit Otolaryngology [facility] [address] [place] [address] Haley Aguero PA-C [address] [place] [address] Health Maintenance Due Date Last Done Comments [...] Additional history exists CKD HGB USE SMARTSET 12282 01/15/202501/15, 01/16/2024, 01/12/2024, Additional history exists CKD PHOS USE SMARTSET 38511 01/15/2025 05/0 02/2024, 01/12/2024, 12/30/2023, Additional history [...] this encounter Medical Devices Implanted Type Area Broke Beater Operator Device Identifier Shelf Expiration Date Model / Serial / Lot Port Power Mri W/8fr Cath - [id number] Implanted:Qty: 1 on 09/26/2020 by Simone Michelle MD at OR [facility] Right: Chest CR BARD : PERIPHERAL VASCULAR 10/12/2021 [id number] / / [id number] Description:right IJ Lens Intraoc 19.0 - [id number] - [id number] Implanted:Qty: 1 on 02/03/2021 by Chris Sexton MD at OR [facility] Right: Eye [employer]USCH [employer] LOMB 09/11/2025 [id number] / [id number] / Lens Intraoc 19.0 - [id number] - [id number] Implanted:Qty: 1 on 02/24/2021 by Chris Sexton MD at OR [facility] Left: Eye BAUSCH & LOMB 10/12/2025 [id number] / [id number] System Urolift - [id number] Implanted:Qty: 2 on 03/17/2023 by Devyn Paniagua MD at OR [facility] N/A: Urethra [employer] 11/18/2023 MY133-9 / / [id number] System Urolift - [id number] Implanted:Qty: 3 on 03/17/2023 by Devyn Paniagua MD at OR [facility] N/A: Urethra [employer] 11/03/2023 OQ005-0 / / [id number] documented as of this encounter Visit Diagnoses [...] 500 mL/hr Daratumumab-hyaluronida se-fihj (Darzalex Faspro) 1800 mg-77762 units/ 15 ml subcut inj 15 mL, [...] and were consensually agreed upon. Care Teams Hemodialysis Charge Nurse Relationship Specialty Start Date End Date Jaime Garcia MD [address] [place] [address] [place] [address] PCP - General Family Medicine 10/15/20 documented as of this encounter
--- OUTSIDE RECORDS SUMMARY | 2024-05-13 06:08 | External Medical Summary ---
Author Name Unknown Address Unknown Organization K01:LABORATORY [facility] [place] - [address] [place] [address] Laboratory Report Ordering Provider Test Date Status MONIQUE PEREZ 01/27/2024 09:17:43 Final Exclude Heart Failure: <300 pg/mL
Diagnose Heart Failure:
Age <50 yr: >450 pg/mL
50-75 yr: >900 pg/mL
>75 yr: >1800 pg/mL
GFR is 30-59 mL/min: >1200 pg/mL or Age- adjusted values
GFR <30 mL/min: do not use, not reliable

Prognostic threshold: 1000 pg/mL Observation Date Value Abnormality Reference (Units ) Status BNP, Pro-hormone 01/27/2024 09:17:43 [id number] Above high no rmal <300 (pg/mL) Final Performing Location LABORATORY [facility] [place] - [address] [place] [address]
--- OUTSIDE RECORDS SUMMARY | 2024-05-13 06:08 | External Medical Summary ---
Author Name Unknown Address Unknown Organization K09:[facility] [address]la [address] [place] [address] Laboratory Report Ordering Provider Test Date Status MONIQUE PEREZ 01/27/2024 09:17:43 Final Observation Date Value Abnormality Reference (Units ) Status WBC, Total 01/27/2024 09:17:43 7.05 4.00-10.8 0 (K/uL) Final RBC 01/27/2024 09:17:43 3.88 4.50-5.25 (M/uL) Final Hemoglobin 01/27/2024 09:17:43 12.8 Below low normal 14 .0-16.8 (g/dL) Final HCT 01/27/2024 09:17:43 38.3 Below low normal 40. 0-48.4 (%) Final MCV 01/27/2024 09:17:43 98.7 82.0-99.5 (fL) Final MCH 01/27/2024 09:17:43 33.0 27.0-34.0 (pg) Final MCHC 01/27/2024 09:17:43 33.4 32.0-36.0 (g/dL) Final RDW 01/27/2024 09:17:43 17.2 11.5-15.5 (%) Final Platelets 01/27/2024 09:17:43 388 140-400 (K /uL) Final MPV 01/27/2024 09:17:43 9.7 6.6-11.1 ( fL) Final Performing Location [facility] Carla Rod[address] [place] [address]
--- OUTSIDE RECORDS SUMMARY | 2024-05-13 06:08 | External Medical Summary ---
Author Name Unknown Address Unknown Organization K09:[facility] [address]la Rod[address] [place] [address] Laboratory Report Ordering Provider Test Date Status MONIQUE PEREZ 01/27/2024 09:17:43 Final Observation Date Value Abnormality Reference (Units ) Status BUN 01/27/2024 09:17:43 15 6-20 (mg/dL) Final Creatinine 01/27/2024 09:17:43 1.2 0.6-1.2 (mg/dL) Final Glomerular filtration rate/1.73 sq M.predicted [Volume Rate/Area] in Serum, Plasma or Blood by Creatinine-based formula (CKD-EPI) 01/27/2024 09:17:43 71 >=60 (mL/min) Final eGFR is calculated based on the CKD-EPI 2020 equation Sodium 01/27/2024 09:17:43 137 135-146 (m mol/L) Final Potassium 01/27/2024 09:17:43 4.6 3.5-5.1 (m mol/L) Final Cl 01/27/2024 09:17:43 99 98-107 (mm ol/L) Final CO2 01/27/2024 09:17:43 28 22-32 (mmo l/L) Final Anion gap 01/27/2024 09:17:43 10 7-15 (mmol /L) Final Glucose 01/27/2024 09:17:43 130 Above high normal 70 -120 (mg/dL) Final Albumin 01/27/2024 09:17:43 4.2 3.8-5.0 (g /dL) Final AST (Aspartate aminotransferase) 01/27/2024 09:17:43 17 10-50 (U/L) Fin al Alk Phos 01/27/2024 09:17:43 182 Above high normal 35 -130 (U/L) Final Bilirubin, Total 01/27/2024 09:17:43 0.6 <=1 .2 (mg/dL) Final Calcium 01/27/2024 09:17:43 10.2 8.4-10.2 ( mg/dL) Final Protein 01/27/2024 09:17:43 6.7 6.0-8.3 (g /dL) Final ALT (Alanine aminotransferase) 01/27/2024 09:17:43 20 10-50 (U/L) Renny hickman Performing Location [facility] [address] [place] [address]
--- OUTSIDE RECORDS SUMMARY | 2024-05-13 06:08 | External Medical Summary ---
Author Name Unknown Address Unknown Organization K09:[facility] [address]la [place] [address] Laboratory Report Ordering Provider Test Date Status MONIQUE PEREZ 01/27/2024 09:17:43 Final Observation Date Value Abnormality Reference (Units ) Status SYNC LEUKOCYTES IN BLOOD BY AUTOMATED COUNT 01/27/2024 09:17:43 7.05 4.00-10.80 (K/uL) Final Segs 01/27/2024 09:17:43 75.6 Above high normal 40.0-75.0 (%) Final Lymphs % 01/27/2024 09:17:43 6.0 Below low normal 18.0-42.0 (%) Final Monos 01/27/2024 09:17:43 14.3 Above high normal 1.0-11.0 (%) Final Eosinophils 01/27/2024 09:17:43 3.0 0.0-6.0 (%) Final Basos 01/27/2024 09:17:43 1.1 0.0-2.0 (%) Final Absolute Segs 01/27/2024 09:17:43 5.33 1.80-7.70 (K/uL) Final Lymphs, absolute 01/27/2024 09:17:43 0.42 Below low normal 1.00-4.80 (K/ul) Final Monos, Abs 01/27/2024 09:17:43 1.01 0.00-1.10 (K/uL) Final Eos, Abs 01/27/2024 09:17:43 0.21 0.00-0.70 (K/uL) Final Basos, Abs 01/27/2024 09:17:43 0.08 0.00-0.20 (K/uL) Final Performing Location [facility] [address]la [address] [address]
--- OUTSIDE RECORDS SUMMARY | 2024-05-13 06:08 | External Medical Summary | Summary of Care ---
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) Procedures MD DARATUMUMAB, HYALURONIDASE MD CYCLOPHOSPHAMIDE 100 MG INJ MD INJ, CYCLOPHOSPHAMIDE, NOS Rosalio Amaral MD [address] [place], [place] [address] [address] Anc Hem/Onc Scenes[place]hdeep Renae DEPT CLOSED - 07/26/23 [address] [place] [address] Referral ID Status Reason Start Date Expiration Date V isits Requested Visits Authorized [id number] Authorized 10/21/2023 10/21/[phone] Encounter Details Date Type Department Care Team (Latest Contact Info) Description 12/30/2023 1:45 PM EDT Hem/Onc Treatment Hematology/Oncolog y Treatment, [place] [address] [place] [address] [place], Chair 2 Hem Onc Scenery [address] [place] [address] Lambda light chain myeloma (HCC)*; [place] amyloidosis [...] 6 mL 3 06/15/20 23 Active Pen [place] 32G X 4 MM Use as 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,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 [place] [address] [facility] [place] [address] Beth Gibbs CRNP [address] [facility] [place] [address] 01/27/2024 9:00 AM EDT Laboratory Laboratory [facility] [place] [address] [place] [phone] [facility] Scene [address] [facility] [place] [address] 01/27/2024 10:00 AM EDT Home Visit [facility] [address] [facility] [place] [address] Sulma Seth, RN [address] [place] [address] 01/27/2024 10:00 AM EDT Hem/Onc Treatment Hematology/Oncology Treatment, [place] [address] [place] [phone] [place], Chair 11 Hem Onc Scenery [address] [facility] [address] 02/03/2024 8:20 AM EDT Anticoagulation Pharmacy, [address] [place] [address] [place] [address] 02/03/2024 8:30 AM EDT Office Visit Pharmacy, [address] [place] [address] [place] [address] 02/07/2024 9:00 AM EDT Nurse Only Ancillary [address] [place] [address] [place], Nurse [address] [place] [address] 02/15/2024 1:30 PM EDT Telemedicine H[facility]ology [facility] Tyree UGARTE [address] [place] [address] Rosalio Amaral MD [address] [place] [id number] 03/16/2024 2:00 PM EDT Telemedicine H[facility]ology [facility] Tyree UGARTE [address] [place] [address] Thierno Patel, LALA [address] [place] [address] 04/16/2024 2:30 PM EDT [facility] [address] [place] [address] Rosalio Amaral MD [address] [place] [address] 04/19/2024 9:30 AM EDT Office Visit Cardiology [address] [place] [address] Tim Ruiz PA-C [address] [place] [address] 05/15/2024 2:00 PM EDT [facility] [address] [place] [address] Thierno Patel PA-C [address] [place] [address] 06/20/2024 3:00 PM EDT [facility] [address] [place] [address] Rosalio Amaral MD [address] [place] [address] 10/30/2024 1:45 PM EST Office Visit Urology, [facility] [place] [address] [place] [address] Devyn Paniagua MD 27 [facility] [address] [place] [address] 01/01/2025 10:20 AM EDT Office Visit Otolaryngology [facility] [place] [address] [place] [address] Haley Aguero PA-C [address] [place] [address] Health Maintenance Due Date Last Done Comments [...] Additional history exists CKD HGB USE SMARTSET 38688 01/15/202501/15, 01/16/2024, 01/12/2024, Additional history exists CKD PHOS USE SMARTSET 98366 01/15/2025 05/0 02/2024, 01/12/2024, 12/30/2023, Additional history [...] this encounter Medical Devices Implanted Type Area Hoop Riveter Device Identifier Shelf Expiration Date Model / Serial / Lot Port Power Mri W/8fr Cath - [id number] Implanted:Qty: 1 on 09/26/2020 by Simone Michelle MD at OR [facility] Right: Chest CR BARD : PERIPHERAL VASCULAR 10/12/2021 [id number] / / [id number] Description:right IJ Lens Intraoc 19.0 - [id number] - [id number] Implanted:Qty: 1 on 02/03/2021 by Chris Sexton MD at OR [facility] Right: Eye [employer]OM[employer] 09/11/2025 [id number] / [id number] / Lens Intraoc 19.0 - [id number] - [id number] Implanted:Qty: 1 on 02/24/2021 by Chris Sexton MD at OR [facility] Left: Eye [employer]CH [employer] LOMB 10/12/2025 [id number] / [id number] / [id number] System Urolift - [id number] Implanted:Qty: 2 on 03/17/2023 by Devyn Paniagua MD at OR [facility] N/A: Urethra [employer] 11/18/2023 [id number] / / [id number] System Urolift - [id number] Implanted:Qty: 3 on 03/17/2023 by Devyn Paniagua MD at OR [facility] N/A: Urethra [employer] 11/03/2023 [id number] / / [id number] documented as of this encounter Visit Diagnoses [...] 500 mL/hr Daratumumab-hyaluronida se-fihj (Darzalex Faspro) 1800 mg-31317 units/ 15 ml subcut inj 15 mL, [...] Date End Date Jaime Garcia MD [address] [place] [address] [place] [address] PCP - General Family Medicine 10/15/20 documented as of this encounter
--- OUTSIDE RECORDS SUMMARY | 2024-05-13 06:08 | External Medical Summary ---
Author Name Unknown Address Unknown Organization K01:[facility] - [facility] [address] [place] [address] Laboratory Report Ordering Provider Test Date Status ANAMONIQUE 01/27/2024 09:17:43 Final Observation Date Value Abnormality Reference (Units ) Status [place] light chains, Free, Serum 01/27/2024 09:17:43 3.82 3.30-19.40 (mg/L) Final Lambda light chains, free, Serum 01/27/2024 09:17:43 63.30 Above high normal 5.71-26.30 (mg/L) Final KAPPA LAMBDA FLC RATIO 01/27/2024 09:17:43 0.06 Below low normal 0.26-1.65 Final Performing Location [facility] - [facility] [place] [address]
--- OUTSIDE RECORDS SUMMARY | 2024-05-13 06:08 | External Medical Summary ---
Author Name Unknown Address Unknown Organization K01:[facility] - [address] [place] [address] Laboratory Report Ordering Provider Test Date Status MONIQUE PEREZ 01/27/2024 09:17:43 Final Observation Date Value Abnormality Reference (Units ) Status Uric Acid 01/27/2024 09:17:43 7.1 Above high normal 3. 4-7.0 (mg/dL) Final Performing Location [facility] - [address] [place] [address]
--- OUTSIDE RECORDS SUMMARY | 2024-05-13 06:08 | External Medical Summary | Summary of Care ---
Author Name Unknown Organization [facility] Address [address] [place] [address] Phone [phone] Care Team Providers Care Weeder Name Role Phone Jaime Garcia MD Primary Care Provide r Encounter Details Date Type Department Care Team (Late st Contact Info) Description 01/20/2024 Orders Only Family Medicine [address] [place] [phone] Jaime Garcia MD [address] [place] [address] [place] [address] Allergies Active Allergy Reactions Criticality Noted Date Comments Atorvastatin Muscle pain High 03/30/2019 Ezetimibe Muscle pain High 01/25/2020 documented as of this encounter (statuses as of 01/20/2024) Medications Medication Sig Dispensed Refills Start Date [...] mL 3 3 06/14/20 24 Active Pen [place] 32G X 4 MM Use as directed. 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 180 Capsule 1 4 Active Nystatin 340128 UNIT/ML Mouth/Throat SuspensionIndicatio ns:Multiple myeloma in relapse [...] as of this encounter (statuses as of 01/20/2024) Active Problems Problem Noted Date Diagnosed Date [...] as of this encounter (statuses as of 01/20/2024) Resolved Problems Problem Noted Date Diagnosed Date [...] as of this encounter (statuses as of 01/20/2024) Immunizations Name Administration Dates Next Due COVID-19, [...] 01/27/2024 9:00 AM EDT Laboratory Laboratory [facility] [place] [address] [place] [phone] Nate Renae Sc[address] [place] [address] 01/27/2024 10:00 AM EDT [facility] Visit [facility], [facility] [address] [place] [address] Sulma Seth, BOBBY [address] [place] [address] 01/27/2024 10:00 AM EDT Hem/Onc Treatment Hematology/Oncology Treatment, [place] [address] [place] [phone] [place], Chair 11 Hem Onc Scenery [address] [place] [address] 02/03/2024 8:20 AM EDT Anticoagulation Pharmacy, [address] [place] [address] [place] [address] 02/03/2024 8:30 AM EDT Office Visit Pharmacy, [address] [place] [address] [place] [address] 02/07/2024 9:00 AM EDT Nurse Only Ancillary [address] [place] [address] [place] Nurse [address] [place] [address] 02/15/2024 1:30 PM EDT Telemedicine H[facility]ology [facility] Tyree UGARTE [address] [facility] [place] [address] Rosalio Amaral MD [address] [place] [address] 03/16/2024 2:00 PM EDT Telemedicine H[facility]ology [facility] Tyree UGARTE [address] [place] [address] Thierno Patel, LALA [address] [place] [address] 04/16/2024 2:30 PM EDT Telemedicine H[facility]ology [facility] [place] [address] [place] [address] Rosalio Amaral MD [address] [place] [address] 04/19/2024 9:30 AM EDT Office Visit Cardiology [address] [place] [address] Tim Ruiz PA-C [address] [facility] [place] [address] 05/15/2024 2:00 PM EDT Telemedicine Hematology [facility] [place] [address] [place] [address] Thierno Patel, PAKylie [address] [place] [address] 06/20/2024 3:00 PM EDT Telemedicine H[facility]ology [facility] [place] [address] [place] [address] Rosalio Amaral MD [address] [place] [address] 10/30/2024 1:45 PM EST Office Visit Urology, [facility] [address] [place] [address] Devyn Paniagua MD 27 [facility] [place] [address] [place] [address] 01/01/2025 10:20 AM EDT Office Visit Otolaryngology [facility] 132 [place] [address] Haley Aguero PA-C [address] [place] [address] Health Maintenance Due Date Last Done Comments [...] PCV20) 05/22/2024 05/13/2020, 05/22/2019 GFR 07/18/2024 01/16/2024, 05/0 10/2023, 12/30/2023, Additional history exists TSH 07/25/2024 07/25/2023, 03/12, 01/31/2023, Additional history exists Albumin/Creatinine Ratio 12/29/2024 024, 09/08/2023, 06/22/2023, Additional history exists CKD HGB USE SMARTSET 93020 01/15/202501/15, 01/16/2024, 01/12/2024, Additional history exists CKD PHOS USE SMARTSET 50317 01/15/2025 05/02/2024, 01/12/2024, 12/30/2023, Additional history exists Diabetic Eye Exam 01/19/2025 01/19/2024, , 07/11/2023, Additional history exists DTaP,Tdap,and [...] this encounter Medical Devices Implanted Type Area Database Marketing Manager Device Identifier Shelf Expiration Date Model / Serial / Lot Port Power Mri W/8fr Cath - [id number] Implanted:Qty: 1 on 09/26/2020 by Simone Michelle MD at OR [facility] Right: Chest CR BARD : PERIPHERAL VASCULAR 10/12/2021 [id number] / / [id number] Description:right IJ Lens Intraoc 19.0 - [id number] - [id number] Implanted:Qty: 1 on 02/03/2021 by Chris Sexton MD at OR [facility] Right: Eye [employer]OM[employer] 09/11/2025 [id number] / [id number] / Lens Intraoc 19.0 - [id number] - [id number] Implanted:Qty: 1 on 02/24/2021 by Chris Sexton MD at [facility] Left: Eye BAUSCH & LOMB 10/12/2025 [id number] / [id number] / [id number] System Urolift - [id number] Implanted:Qty: 2 on 03/17/2023 by Devyn Paniagua MD at OR [facility] N/A: Urethra [employer] 11/18/2023 [id number] / / [id number] System Urolift - [id number] Implanted:Qty: 3 on 03/17/2023 by Devyn Paniagua MD at OR [facility] N/A: Urethra [employer] 11/03/2023 [id number] / / [id number] documented as of this encounter Procedures Procedure Name Priority Date/Time Associated Diagnosis Comments DIABETIC EYE EXAM Routine 01/19/2024 documented in this encounter Results * DIABETIC EYE EXAM (01/19/2024) 01/19/2024 History Per Patient OTHER OUTSIDE LAB (SEE SCANNED REPORT) documented in [...] and were consensually agreed upon. Care Teams Weeder Relationship Specialty Start Date End Date Jaime Garcia MD [address] [place] [address] [place] [address] PCP - General Family Medicine 10/15/20 documented as of this encounter
--- OUTSIDE RECORDS SUMMARY | 2024-05-13 06:08 | External Medical Summary ---
Author Name Unknown Address Unknown Organization K01:[facility] [address] [place] [address] Laboratory Report Ordering Provider Test Date Status MONIQUE PEREZ 01/27/2024 09:17:43 Final Observation Date Value Abnormality Reference (Units ) Status LDH 01/27/2024 09:17:43 189 <=250 (U/L ) Final Performing Location [facility] - [address] [place] [address]
--- OUTSIDE RECORDS SUMMARY | 2024-05-13 06:09 | External Medical Summary | Summary of Care ---
Author Name Unknown Organization [facility] Address [address] [place] [address] Phone [phone] Care Team Providers Care Meat Seafood Associate Name Role Phone Jaime Garcia MD Primary Care Provide r Reason for Visit * Reason Comments Treatment * Episode Based Medications (Routine) - Authorized Specialty Diagnoses / Procedures Referred By Darin t Referred To Contact Diagnoses Lambda light chain myeloma (HCC) AL amyloidosis (HCC) Procedures WI DARATUMUMAB, HYALURONIDASE WI CYCLOPHOSPHAMIDE 100 MG INJ WI INJ, CYCLOPHOSPHAMIDE, NOS Rosalio Amaral MD Formerly named [facility] [place] [address] Anc Hem/Onc Carla Renae DEPT CLOSED - 07/26/23 [address] [place] [address] Referral ID Status Reason Start Date Expiration Date V isits Requested Visits Authorized [id number] Authorized 10/21/2023 10/21/2024 [id number] Encounter Details Date Type Department Care Team (Latest Contact Info) Description 11/14/2023 8:30 AM EST Hem/Onc Treatment Hematology/Oncology Treatment, [place] [address] [place] [address] [place], Chair 4 Hem Onc Scenery 200 [facility] [place] [address] Lambda light chain myeloma (HCC)*; AL amyloidosis (HCC) Allergies Active Allergy Reactions Criticality Noted Date Comments Atorvastatin Muscle pain High 03/30/2019 Ezetimibe Muscle pain High 01/25/2020 documented as of this encounter (statuses as of 01/14/2024) Medications Medication Sig Dispensed Refills Start Date End Date Status NSS 0.9 % SOLN with daratumumab 400 MG/20ML SOLN 16 mg/kgIndications: every 4 weeks Administer intravenously every 14 days. 0 Active CPAP every night at bedtime. 0 Active oxygen IN GAS Use 2 L/min(Oxygen) as directed at bedtime. 1 Each 0 11/12/19 21 Active OneWe Heart Ituch Ultra Blue In Vitro Strip (Glucose Blood)Indications [...] [place]) Test once daily DxE11.9. 100 Each 03/02/20 21 Active Acyclovir 400 MG Oral Tablet (Zovirax)Indicati ons:Lambda light chain myeloma ([facility] [...] one hour prior to Hizentra. 30 Tablet 09/16/19 23 Active EpiPen 2-Konstantin 0.3 MG/0.3ML Injection Solution Auto-injector For a severe reaction: Inject in outer thigh following instructions on package and go to the Emergency room. 2 Each 3 10/05/19 23 Active Dexamethasone 4 MG Oral Tablet (Decadron)Indicat ions:Multiple myeloma not having achieved remission (HCC) 5 tabs 2 times monthly 10 Tablet 10/25/19 23 Active Polyethylene Glycol 3350 17 GM Oral Packet Take 1 Packet by mouth daily as needed. 0 Active oxyCODONE-Acetami nophen 5-325 MG Oral Tablet (Percocet) Take 1 Tablet by mouth every 6 hours as needed for Pain, Severe. 10 Tablet 0 03/17/20 Active Finasteride 5 MG Oral Tablet (Proscar) TAKE 1 TABLET BY MOUTH IN THE MORNING 90 Tablet 3 04/12/20 23 Active Cholecalciferol 50 MCG (1999 [place]) Oral [...] mL 3 06/15/20 23 024 Active Pen [place] 32G X 4 MM Use as directed. 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 54 g 1 06/30/20 21 024 Discontinued(Re fill) Hizentra 4 GM/20ML Subcutaneous Solution (immune globulin [...] 120 mL 12 09/16/19 23 024 Discontinued Levothyroxine Sodium 50 MCG Oral Tablet (Levoxyl) TAKE 1 TABLET BY MOUTH DAILY AT LEAST 30 MINUTES PRIOR TO FIRST MEAL OF THE DAY OR OTHER MEDICATIONS 90 Tablet 3 01/12/20 23 024 Discontinued(Re fill) DULoxetine HCl 20 MG Oral Capsule Delayed [...] Tablet 1 07/11/20 23 024 Discontinued(Re fill) Torsemide 10 MG Oral Tablet (Demadex)Indicati ons:takes extra tab for swelling, wt gain Take 1 Tablet by mouth in the morning every other day. 100 Tablet 3 09/02/20 23 024 Discontinued Nystatin 615050 UNIT/ML Mouth/Throat SuspensionIndicat ions:Multiple myeloma in relapse (HCC) Swish and swallow 5 mL in the morning and 5 mL at noon and 5 mL in the evening and 5 mL before bedtime. 60 mL 1 09/08/20 23 024 Discontinued(Re fill) Advanced Probiotic 10 Oral Capsule 1 Capsule in the morning. 0 08/18/20 23 024 Discontinued oxyCODONE HCl 5 MG Oral Tablet (Oxy IR)Indications:Mu ltiple myeloma in relapse ([facility] [place]) Take 1 Tablet by mouth every 4 hours as needed for breakthrough pain. 30 Tablet 0 10/06/19 24 024 Discontinued(Re fill) Allopurinol 100 MG Oral Tablet (Zyloprim)Indicat ions:Multiple [...] as of this encounter (statuses as of 01/14/2024) Active Problems Problem Noted Date Diagnosed Date [...] as of this encounter (statuses as of 01/14/2024) Resolved Problems Problem Noted Date Diagnosed Date [...] as of this encounter (statuses as of 01/14/2024) Immunizations Name Administration Dates Next Due COVID-19, [...] Care Team (Late st Contact Info) Description 01/16/2024 12:00 PM EDT Laboratory Laboratory [facility] [address] [place] [phone] [place], Lab Scenery [address] [facility] [place] [address] 01/16/2024 1:00 PM EDT Hem/Onc Treatment [facility]ematology[facility] [place] [facility] [phone] [place], Chair 6 Hem Onc Scenery [address] [place] [address] 01/19/2024 3:00 PM EDT Office Visit Cardiology, [facility] 132 [facility] [place] [address] Beth Gibbs CRNP 132 [facility] [place] [address] 01/27/2024 9:00 AM EDT Laboratory Laboratory [facility] [place] [address] [place] [phone] [place], Lab Scenery [address] [place] [address] 01/27/2024 10:00 AM EDT Home Visit [facility], [facility] 132 [facility] [place] [address] Sulma Seht RN 132 [facility] [place] [address] 01/27/2024 10:00 AM EDT Hem/Onc Treatment Hematology/Oncology Treatment, [place] [facility] [phone] [place], Chair 11 Hem Onc Scenery [address] [place] [address] 02/03/2024 8:20 AM EDT Anticoagulation Pharmacy, [address] [place] [address] [place] [address] 02/03/2024 8:30 AM EDT Office Visit Pharmacy, [address] [place] [address] [place] [address] 02/07/2024 9:00 AM EDT Nurse Only Ancillary [address] [place] [address] [place], Nurse [address] [place] [address] 02/15/2024 1:30 PM EDT [facility] [address] [place] [address] Rosalio Amaral MD [address] [place] [address] 03/16/2024 2:00 PM EDT Telemedicine [facility] [address] [place] [address] Thierno Patel PA-C [address] [place] [address] 04/16/2024 2:30 PM EDT Telemedicine [facility] [address] [place] [address] Rosalio Amaral MD [address] [place] [address] 04/19/2024 9:30 AM EDT Office Visit Cardiology [address] [place] [address] Tim Ruiz PA-C [address] [place] [address] 05/15/2024 2:00 PM EDT Telemedicine [facility] [address] [place] [address] Thierno Patel PA-C [address] [place] [address] 06/20/2024 3:00 PM EDT Telemedicine Hematology Oncology [facility] [place] [address] [place] [address] Rosalio Amaral MD [address] [place] [address] 10/30/2024 1:45 PM EST Office Visit [facility], [facility] [place] [address] Devyn Paniagua MD 27 [facility] 270 [place] [address] 01/01/2025 10:20 AM EDT Office Visit [facility] [place] [address] Haley Aguero PA-C 132 [facility] [place] [address] Health Maintenance Due Date Last Done Comments [...] 07/11/2023, , 07/05/2022, Additional history exists GFR 07/14/2024 01/12/2024, 12/11, 12/19/2023, Additional history exists TSH 07/25/2024 07/25/2023, 03/12, 01/31/2023, Additional history exists Albumin/Creatinine Ratio 12/29/2024 024, 09/08/2023, 06/22/2023, Additional history exists CKD HGB USE SMARTSET 43706 01/11/202501/11, 01/12/2024, 12/30/2023, Additional history exists CKD PHOS USE SMARTSET 25848 01/11/2025 05/0 10/2023, 12/30/2023, 11/14/2023, Additional history exists DTaP,Tdap,and Td Vaccines (2 [...] this encounter Medical Devices Implanted Type Area Highway Maintainer Device Identifier Shelf Expiration Date Model / Serial / Lot Port Power Mri W/8fr Cath - [id number] Implanted:Qty: 1 on 09/26/2020 by Simone Michelle MD at OR [facility] Right: Chest CR BARD : PERIPHERAL VASCULAR 10/12/2021 [id number] / / [id number] Description:right IJ Lens Intraoc 19.0 - [id number] - [id number] Implanted:Qty: 1 on 02/03/2021 by Chris Sexton MD at OR [facility] Right: Eye [employer]OM[employer] 09/11/2025 [id number] / [id number] / Lens Intraoc 19.0 - [id number] - [id number] Implanted:Qty: 1 on 02/24/2021 by Chris Sexton MD at OR [facility] Left: Eye BAUSCH [employer] LOMB 10/12/2025 [id number] / [id number] / [id number] System Urolift - [id number] Implanted:Qty: 2 on 03/17/2023 by Devyn Paniagua MD at OR [facility] N/A: Urethra [employer] 11/18/2023 [id number] / / [id number] System Urolift - [id number] Implanted:Qty: 3 on 03/17/2023 by Devyn Paniagua MD at OR [facility] N/A: Urethra [employer] 11/03/2023 [id number] / / [id number] documented as of this encounter Visit Diagnoses Diagnosis Lambda light chain myeloma (HCC)- Primary Multiple myeloma, without mention of having achieved remission AL amyloidosis (HCC) Other amyloidosis documented in this encounter Administered Medications Inactive [...] 9:00 AM EST 500 mg 500 mL/hr Daratumumab-hyaluronida se-fihj (Darzalex Faspro) 1800 mg-37568 units/ 15 ml subcut inj 15 mL, [...] Given 11/14/2023 8:51 AM EST 10 mg hEParin 100 UNIT/ML Lock Flush inj 500 Units 500 Units (5 mL), IV Lock, PRN Other, IV Flush, Starting on Tue11/14/23 at 0827, Until Tue11/14/23 at 1349, For 24 hours, Do not flush if lock, PICC, or central line not in place; IV infusing or unable to flush. Given 11/14/2023 9:36 AM EST 500 Units NSS infusion 500 mL, Intravenous, at 50 mL/hr, CONTINUOUS, Starting on Tue11/14/23 at 0930, Until Tue11/14/23 at 1349 Start Infusion 11/14/2023 8:45 AM EST 500 mL 50 mL/hr sodium chloride 0.9 % flush central line 10 mL 10 mL, IV Push, PRN Other, IV Flush, Starting on Tue11/14/23 at 0827, Until Tue11/14/23 at 1349, For 24 hours, Do not flush if lock, PICC, or central line not in place; IV infusing or unable to flush. Given 11/14/2023 9:36 AM EST 10 mL documented in this [...] and were consensually agreed upon. Care Teams Meat Seafood Associate Relationship Specialty Start Date End Date Jaime Garcia MD [address] [place] [address] [place] [phone] PCP - General Family Medicine 10/15/20 documented as of this encounter
--- OUTSIDE RECORDS SUMMARY | 2024-05-13 06:09 | External Medical Summary ---
Author Name Unknown Address Unknown Organization K09:[facility]- [address] [place] [address] Laboratory Report Ordering Provider Test Date Status MONIQUE PEREZ 01/16/2024 12:15:05 Final Observation Date Value Abnormality Reference (Units ) Status BUN 01/16/2024 12:15:05 22 Above high normal 6-20 (mg/dL) Final Creatinine 01/16/2024 12:15:05 1.6 Above high normal 0.6-1.2 (mg/dL) Final Glomerular filtration rate/1.73 sq M.predicted [Volume Rate/Area] in Serum, Plasma or Blood by Creatinine-based formula (CKD-EPI) 01/16/2024 12:15:05 53 Below low normal >=60 (mL/min) Final eGFR is calculated based on the CKD-EPI 2020 equation Sodium 01/16/2024 12:15:05 140 135-146 (m mol/L) Final Potassium 01/16/2024 12:15:05 4.2 3.5-5.1 (m mol/L) Final Cl 01/16/2024 12:15:05 102 98-107 (mm ol/L) Final CO2 01/16/2024 12:15:05 26 22-32 (mmo l/L) Final Anion gap 01/16/2024 12:15:05 12 7-15 (mmol /L) Final Glucose 01/16/2024 12:15:05 92 70-120 (mg /dL) Final Albumin 01/16/2024 12:15:05 3.9 3.8-5.0 (g /dL) Final AST (Aspartate aminotransferase) 01/16/2024 12:15:05 17 10-50 (U/L) Fin al Alk Phos 01/16/2024 12:15:05 128 35-130 (U/ L) Final Bilirubin, Total 01/16/2024 12:15:05 0.4 <=1 .2 (mg/dL) Final Calcium 01/16/2024 12:15:05 10.7 Above high normal 8. 4-10.2 (mg/dL) Final Protein 01/16/2024 12:15:05 6.5 6.0-8.3 (g /dL) Final ALT (Alanine aminotransferase) 01/16/2024 12:15:05 15 10-50 (U/L) Renny hickman Performing Location [facility] [address] [place] [address]
--- OUTSIDE RECORDS SUMMARY | 2024-05-13 06:09 | External Medical Summary | Summary of Care ---
Author Name Unknown Organization [facility] Address [address] [place] [address] Phone [phone] Care Team Providers Care Monitoring Engineer Name Role Phone Jaime Garcia MD Primary Care Provide r Reason for Visit * Reason Comments Outpatient Testing Encounter Details Date Type Department Care Team (Late st Contact Info) Description 01/16/2024 12:00 PM EDT Laboratory Laboratory Scenery [facility] [address] [place] [phone] [place], Lab Scenery [address] [place] [address] Multiple myeloma in relapse (HCC); Lambda light chain myeloma (HCC); Multiple myeloma without remission (HCC) Allergies Active Allergy Reactions Criticality Noted Date Comments Atorvastatin Muscle pain High 03/30/2019 Ezetimibe Muscle pain High 01/25/2020 documented as of this encounter (statuses as of 01/16/2024) Medications Medication Sig Dispensed Refills Start Date [...] once daily 180 Tablet 3 2 Active diphenhydrAMINE HCl 50 MG Oral Capsule [...] Pain, Severe. 10 Tablet 0 3 Active Additional Information Patient not taking.Reported [...] mL 3 3 06/14/20 24 Active Pen [place] 32G X 4 MM Use as directed. [...] Oral Tablet (Coumadin)Indicatio ns:Atrial fibrillation, unspecified type ([facility]),Anticoagulati on management encounter,retirement current use of anticoagulant therapy,Paroxysmal atrial fibrillation ([facility]) Take up to one tablet by mouth daily as directed by anticoagulation clinic 90 Tablet 3 4 Active Dapsone 25 MG Oral TabletIndications:M ultiple myeloma in relapse ([facility]) TAKE ONE TABLET BY MOUTH EVERY DAY 90 Tablet 1 4 10/27/19 25 Active Torsemide 10 MG Oral Tablet (Demadex)Indication s:takes extra tab for swelling, wt gain Take 1 Tablet by mouth in the morning. As needed.. 0 4 Active oxyCODONE HCl 5 MG Oral Tablet (Oxy IR)Indications:Mult iple myeloma in relapse ([facility]) Take 1 Tablet by mouth every [...] morning. 180 Capsule 1 4 Active Nystatin 242247 UNIT/ML Mouth/Throat SuspensionIndicatio ns:Multiple myeloma in relapse ([facility] [...] as of this encounter (statuses as of 01/16/2024) Active Problems Problem Noted Date Diagnosed Date [...] as of this encounter (statuses as of 01/16/2024) Resolved Problems Problem Noted Date Diagnosed Date [...] as of this encounter (statuses as of 01/16/2024) Immunizations Name Administration Dates Next Due COVID-19, [...] Team (Late st Contact Info) Description 01/16/2024 1:00 PM EDT Hem/Onc Treatment Hematology/[address]cology [address] [phone] [place], Chair [address] Hem [address] [place] [address] Arrived 01/19/2024 3:00 PM EDT Office Visit Cardiology, [facility] [address] [place] [address] Beth Gibbs CRNP [address] [place] [address] 01/27/2024 9:00 AM EDT Laboratory Laboratory [facility] [address] [place] [phone] [place] Lab [address] [facility] [place] [address] 01/27/2024 10:00 AM EDT Home Visit [facility] [address] [place] [address] Sulma Seth, BOBBY [address] [place] [address] 01/27/2024 10:00 AM EDT Hem/Onc Treatment Hematology/Oncology [address] [phone] [place], Chair 11 Hem Onc Scenery [address] [place] [address] 02/03/2024 8:20 AM EDT Anticoagulation Pharmacy, [address] [place] [address] [place] [address] 02/03/2024 8:30 AM EDT Office Visit Pharmacy, [address] [place] [address] [place] [address] 02/07/2024 9:00 AM EDT Nurse Only Ancillary [address] [place] [address] [place], Nurse [address] [place] [address] 02/15/2024 1:30 PM EDT Telemedicine [facility] [address] [place] [address] Rosalio Amaral MD [address] [place] [address] 03/16/2024 2:00 PM EDT Telemedicine Hematology Oncology [facility] [place] [address] [place] [address] Thierno Patel PA-C [address] [place] [address] 04/16/2024 2:30 PM EDT Telemedicine Hematology Oncology [facility] [place] [address] [place] [address] Rosalio Amaral MD [address] [place] [address] 04/19/2024 9:30 AM EDT Office Visit Cardiology [address] [place] [address] Tim Ruiz PA-C [address] [place] [address] 05/15/2024 2:00 PM EDT Telemedicine [facility] [address] [place] [address] Thierno Patel PA-C [address] [place] [address] 06/20/2024 3:00 PM EDT [facility] [address] [place] [address] Rosalio Amaral MD [address] [place] [address] 10/30/2024 1:45 PM EST Office Visit Urology, [facility] [address] [place] [address] Devyn Paniagua MD [address] [place] [address] [place] [address] 01/01/2025 10:20 AM EDT Office Visit Otolaryngology [facility] [address] [place] [address] Haley Aguero PA-C [address] [place] [address] Pending Results Name Type Priority Associated Diagnoses Date /Time COMPREHENSIVE METABOLIC PANEL Lab STAT Multiple myeloma in relapse (HCC) 01/16/2024 12:15 PM EDT URIC ACID Lab STAT Multiple myeloma in relapse (HCC) 01/16/2024 12:15 PM EDT LD Lab STAT Multiple myeloma in relapse (HCC) 01/16/2024 12:15 PM EDT PHOSPHORUS Lab Routine Lambda light chain myeloma (HCC) Multiple myeloma without remission (HCC) 01/16/2024 12:15 PM EDT Health Maintenance Due Date Last Done Comments Cologuard 2015 Fecal Occult Blood Test 2015 Sigmoidoscopy 2015 Depression Screening 01/05/2022 01/05/2021 Diabetic Foot Exam 12/14/2022 12/14/2021, 0 10/15/2020, 06/25/2019 COVID-19 Vaccine ( season) 2023 10/06/2021, 06/24/2021, 06/23/2021 HbA1c 01/05/2024 07/06/2023, 080 11/2022, 03/29/2023, Additional history exists Pneumococcal Vaccine: [...] 024, 09/08/2023, 06/22/2023, Additional history exists CKD PHOS USE SMARTSET 38200 01/11/2025 05/0 10/2023, 12/30/2023, 11/14/2023, Additional history exists CKD HGB USE SMARTSET 61618 01/15/202501/15, 01/16/2024, 01/12/2024, Additional history exists DTaP,Tdap,and Td [...] this encounter Medical Devices Implanted Type Area Environmental Protection Economist Device Identifier Shelf Expiration Date Model / Serial / Lot Port Power Mri W/8fr Cath - [id number] Implanted:Qty: 1 on 09/26/2020 by Simone Michelle MD at OR [facility] Right: Chest CR BARD : PERIPHERAL VASCULAR 10/12/2021 [id number] / / [id number] Description:right IJ Lens Intraoc 19.0 - [id number] - [id number] Implanted:Qty: 1 on 02/03/2021 by Chris Sexton MD at OR [facility] Right: Eye [employer] 09/11/2025 [id number] / [id number] / Lens Intraoc 19.0 - [id number] - [id number] Implanted:Qty: 1 on 02/24/2021 by Chris Sexton MD at OR [facility] Left: Eye [employer] LOMB 10/12/2025 [id number] / [id number] System Urolift - [id number] Implanted:Qty: 2 on 03/17/2023 by Devyn Paniagua MD at OR [facility] N/A: Urethra [employer] 11/18/2023 [id number] / / [id number] System Urolift - [id number] Implanted:Qty: 3 on 03/17/2023 by Devyn Paniagua MD at OR [facility] N/A: Urethra [employer] 11/03/2023 [id number] / / [id number] documented as of this encounter Procedures Procedure Name Priority Date/Time Associated Diagnosis Comments DIFFERENTIAL, AUTOMATED STAT 01/16/2024 12:15 PM EDT Multiple myeloma in relapse (HCC) CBC STAT 01/16/2024 12:15 PM EDT Multiple myeloma in relapse (HCC) CBC STAT 01/16/2024 12:15 PM EDT Multiple myeloma in relapse (HCC) documented in this encounter Results * (ABNORMAL) DIFFERENTIAL, AUTOMATED (01/16/2024 12:15 PM EDT) WBC 7.27 4.00 - 10.80 K/uL 01/16/2024 12:19 PM EDT [facility] [place] [facility]02 Neutrophils % 71.7 40.0 - 75.0 % 01/16/2024 12:19 PM EDT [facility] [place] 56-02 Lymphocytes % 8.1(L) 18.0 - 42.0 % 01/16/2024 12:19 PM EDT [facility] [place] 56-02 Monocytes % 13.9(H) 1.0 - 11.0 % 01/16/2024 12:19 PM EDT [facility] [place] 56-02 Eosinophils % 5.1 0.0 - 6.0 % 01/16/2024 12:19 PM EDT [facility] [place] 56-02 Basophils % 1.2 0.0 - 2.0 % 01/16/2024 12:19 PM EDT [facility] [place] 56-02 Absolute Neutrophils 5.21 1.80 - 7.70 K/uL 01/16/2024 12:19 PM EDT [facility] [place] 56-02 Absolute Lymphocytes 0.59(L) 1.00 - 4.80 K/ul 01/16/2024 12:19 PM EDT [facility] [place] 56-02 Absolute Monocytes 1.01 0.00 - 1.10 K/uL 01/16/2024 12:19 PM EDT [facility] [place] 56-02 Absolute Eosinophils 0.37 0.00 - 0.70 K/uL 01/16/2024 12:19 PM EDT [facility] [place] 56-02 Absolute Basophils 0.09 0.00 - 0.20 K/uL 01/16/2024 12:19 PM EDT [place] [address] Blood Venous blood specimen / Unknown Venipuncture / Unknown 01/16/2024 12:15 PM EDT 01/16/2024 12:15 PM EDT Rosalio Amaral MD LAB BLOOD ORDERABLES [place] [address] [place] [id number] * (ABNORMAL) CBC (01/16/2024 12:15 PM EDT) WBC 7.27 4.00 - 10.80 K/uL 01/16/2024 12:19 PM EDT [place] [address] RBC 3.73 4.50 - 5.25 M/uL 01/16/2024 12:19 PM EDT [place] [address] HGB 12.0(L) 14.0 - 16.8 g/dL 01/16/2024 12:19 PM EDT [place] [address] HCT 36.8(L) 40.0 - 48.4 % 01/16/2024 12:19 PM EDT [place] [address] MCV 98.7 82.0 - 99.5 fL 01/16/2024 12:19 PM EDT [place] [address] MCH 32.2 27.0 - 34.0 pg 01/16/2024 12:19 PM EDT [place] [address] MCHC 32.6 32.0 - 36.0 g/dL 01/16/2024 12:19 PM EDT [place] [address] RDW 17.9 11.5 - 15.5 % 01/16/2024 12:19 PM EDT [address] PLT 378 140 - 400 K/uL 01/16/2024 12:19 PM EDT [address] MPV 9.7 6.6 - 11.1 fL 01/16/2024 12:19 PM EDT [place] [address] Blood Venous blood specimen / Unknown Venipuncture / Unknown 01/16/2024 12:15 PM EDT 01/16/2024 12:15 PM EDT Rosalio Amaral MD LAB BLOOD ORDERABLES [facility] 56-15 [address] [place] [address] documented in this encounter Visit Diagnoses Diagnosis Multiple myeloma in relapse (HCC) Multiple myeloma, in relapse Lambda light chain myeloma (HCC) Multiple myeloma, without mention of having achieved remission Multiple myeloma without remission (HCC) Multiple myeloma, [...] and were consensually agreed upon. Care Teams Monitoring Engineer Relationship Specialty Start Date End Date Jaime Garcia MD [address] [place] [address] [place] [address] PCP - General Family Medicine 10/15/20 documented as of this encounter
--- OUTSIDE RECORDS SUMMARY | 2024-05-13 06:09 | External Medical Summary ---
Author Name Unknown Address Unknown Organization K01:[facility] [address] [place] [address] Laboratory Report Ordering Provider Test Date Status MONIQUE PEREZ 01/16/2024 12:15:05 Final Observation Date Value Abnormality Reference (Units ) Status LDH 01/16/2024 12:15:05 160 <=250 (U/L ) Final Performing Location [facility] - [address] [place] [address]
--- OUTSIDE RECORDS SUMMARY | 2024-05-13 06:09 | External Medical Summary ---
Author Name Unknown Address Unknown Organization [id number]:[facility] [place]la [place] [address] Laboratory Report Ordering Provider Test Date Status MONIQUE PEREZ 01/16/2024 12:15:05 Final Observation Date Value Abnormality Reference (Units ) Status WBC, Total 01/16/2024 12:15:05 7.27 4.00-10.8 0 (K/uL) Final RBC 01/16/2024 12:15:05 3.73 4.50-5.25 (M/uL) Final Hemoglobin 01/16/2024 12:15:05 12.0 Below low normal 14 .0-16.8 (g/dL) Final HCT 01/16/2024 12:15:05 36.8 Below low normal 40. 0-48.4 (%) Final MCV 01/16/2024 12:15:05 98.7 82.0-99.5 (fL) Final MCH 01/16/2024 12:15:05 32.2 27.0-34.0 (pg) Final MCHC 01/16/2024 12:15:05 32.6 32.0-36.0 (g/dL) Final RDW 01/16/2024 12:15:05 17.9 11.5-15.5 (%) Final Platelets 01/16/2024 12:15:05 378 140-400 (K /uL) Final MPV 01/16/2024 12:15:05 9.7 6.6-11.1 ( fL) Final Performing Location [facility] [place] [address]
--- OUTSIDE RECORDS SUMMARY | 2024-05-13 06:09 | External Medical Summary ---
Author Name Unknown Address Unknown Organization K09:[facility] Carla [place]rí[place] [address] Laboratory Report Ordering Provider Test Date Status MONIQUE PEREZ 01/16/2024 12:15:05 Final Observation Date Value Abnormality Reference (Units ) Status Phosphate 01/16/2024 12:15:05 3.6 2.5-4.8 (m g/dL) Final Performing Location [facility] Carla [place] [address]
--- OUTSIDE RECORDS SUMMARY | 2024-05-13 06:09 | External Medical Summary | Summary of Care ---
Author Name Unknown Organization [facility] Address [address] [place] [address] Phone [phone] Care Team Providers Care Pesticide Applicator Name Role Phone Jaime Garcia MD Primary Care Provide r Reason for Visit * Reason Comments Treatment * Episode Based Medications (Routine) - Authorized Specialty Diagnoses / Procedures Referred By Darin t Referred To Contact Diagnoses Lambda light chain myeloma (HCC) AL amyloidosis (HCC) Procedures ND DARATUMUMAB, HYALURONIDASE ND CYCLOPHOSPHAMIDE 100 MG INJ ND INJ, CYCLOPHOSPHAMIDE, NOS Rosalio Amaral MD [facility] [place] [address] Anc Hem/Onc Carla Renae DEPT CLOSED - 07/26/23 [address] [place] [address] Referral ID Status Reason Start Date Expiration Date V isits Requested Visits Authorized [id number] Authorized 10/21/2023 10/21/2024 999 999 Encounter Details Date Type Department Care Team (Latest Contact Info) Description 11/14/2023 8:30 AM EST Hem/Onc Treatment Hematology/Oncology Treatment, [place] [address] [place] [address] [place], Chair 4 Hem Onc Scenery 200 [facility] [place] [address] Lambda light chain myeloma (HCC)*; AL amyloidosis [...] bedtime. 1 Each 0 11/12/19 21 Active OneCarreira Beautyuch Ultra Blue In Vitro Strip (Glucose Blood)Indications :Type 2 diabetes mellitus with hemoglobin A1c goal of less than 7.0% ([facility]) Use as directed daily. Test once daily DxE11.9 100 Strip 03/02/20 Active LancetsIndication s:Type 2 diabetes mellitus with hemoglobin A1c goal of less than 7.0% ([facility]) Test once daily DxE11.9. 100 Each 03/02/20 21 Active Acyclovir 400 MG Oral Tablet (Zovirax)Indicati ons:Lambda light chain myeloma ([facility]) Take one tablet once daily [...] mL 3 06/15/20 23 024 Active Pen [place] 32G X 4 MM Use as directed. 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 180 Tablet 1 07/11/20 23 024 Discontinued(Re fill) Torsemide 10 MG Oral Tablet (Demadex)Indicati ons:takes extra tab for swelling, wt gain Take 1 Tablet by mouth in the morning every other day. 100 Tablet 3 09/02/20 23 024 Discontinued Nystatin 758762 UNIT/ML Mouth/Throat SuspensionIndicat ions:Multiple myeloma in relapse [...] Tablet (Oxy IR)Indications:Mu ltiple myeloma in relapse ([facility]) Take 1 Tablet by mouth [...] Description 01/16/2024 12:00 PM EDT Laboratory Laboratory [facility] [address] [place] [phone] [place], Lab Scenery [address] [facility] [place] [address] 01/16/2024 1:00 PM EDT Hem/Onc Treatment [facility] [place] [facility] [phone] [place], Chair 6 Hem Onc Scenery [address] [place] [address] 01/19/2024 3:00 PM EDT Office Visit Cardiology, [facility] 132 [facility] [place] [address] Beth Gibbs CRNP 132 [facility] [place] [address] 01/27/2024 9:00 AM EDT Laboratory Laboratory [facility] [place] [address] [place] [phone] [place], Lab Scenery [address] [place] [address] [place] [address] 01/27/2024 10:00 AM EDT Home Visit [facility], [facility] [place] [address] Sulma Seth RN 132 [facility] [place] [address] 01/27/2024 10:00 AM EDT Hem/Onc Treatment Hematology/[facility]cology [facility], [place] [facility] [phone] [place], Chair 11 Hem Onc Scenery [address] [place] [address] 02/03/2024 8:20 AM EDT Anticoagulation Pharmacy, [address] [place] [address] [place] [address] 02/03/2024 8:30 AM EDT Office Visit Pharmacy, [address] [place] [address] [place] [address] 02/07/2024 9:00 AM EDT Nurse Only Ancillary [address] [place] [address] [place], Nurse [address] [place] [address] 02/15/2024 1:30 PM EDT [facility]med[facility] [address] [place] [address] Rosalio Amaral MD [address] [place] [address] 03/16/2024 2:00 PM EDT Telemedicine [facility] [address] [place] [address] Thierno Patel PA-C [address] [place] [address] 04/16/2024 2:30 PM EDT Telemedicine [facility] [address] [place] [address] Rosalio Amaral MD [address] [place] [address] 04/19/2024 9:30 AM EDT Office Visit Cardiology [address] [place] [address] Tim Ruiz PA-C [address] [place] [address] 05/15/2024 2:00 PM EDT Telemedicine [facility] [address] [place] [address] Thierno Patel PA-C [address] [place] [address] 06/20/2024 3:00 PM EDT Telemedicine Hematology Oncology [facility] [place] [place] [address] [place] [address] Rosalio Amaral MD [address] [place] [address] 10/30/2024 1:45 PM EST Office Visit [facility]rology, [facility] [place] [address] Devyn Paniagua MD 27 [facility] 270 [place] [address] 01/01/2025 10:20 AM EDT Office Visit Otolaryngology [facility] [place] [address] Haley Aguero PA-C 132 [facility] [place] [address] Health Maintenance Due Date Last Done Comments [...] Additional history exists CKD HGB USE SMARTSET 75215 01/11/202501/11, 01/12/2024, 12/30/2023, Additional history exists CKD PHOS USE SMARTSET 66453 01/11/2025 05/0 10/2023, 12/30/2023, 11/14/2023, Additional history [...] this encounter Medical Devices Implanted Type Area Entry Level Finance Device Identifier Shelf Expiration Date Model / Serial / Lot Port Power Mri W/8fr Cath - [id number] Implanted:Qty: 1 on 09/26/2020 by Simone Michelle MD at OR [facility] Right: Chest CR BARD : PERIPHERAL VASCULAR 10/12/2021 [id number] / / [id number] Description:right IJ Lens Intraoc 19.0 - [id number] - [id number] Implanted:Qty: 1 on 02/03/2021 by Chris Sexton MD at OR [facility] Right: Eye BAUSCH & LOMB 09/11/2025 [id number] / [id number] / Lens Intraoc 19.0 - [id number] - [id number] Implanted:Qty: 1 on 02/24/2021 by Chris Sexton MD at OR [facility] Left: Eye BAUSCH & LOMB 10/12/2025 [id number] / [id number] / [id number] System Urolift - [id number] Implanted:Qty: 2 on 03/17/2023 by Devyn Paniagua MD at OR [facility] N/A: Urethra [employer] 11/18/2023 [id number] / / [id number] System Urolift - [id number] Implanted:Qty: 3 on 03/17/2023 by Devyn Paniagua MD at OR [facility] N/A: Urethra [employer] 11/03/2023 EG301-7 / / [id number] documented as of this encounter Visit Diagnoses [...] 500 mL/hr Daratumumab-hyaluronida se-fihj (Darzalex Faspro) 1800 mg-00181 units/ 15 ml subcut inj 15 mL, [...] and were consensually agreed upon. Care Teams Pesticide Applicator Relationship Specialty Start Date End Date Jaime Garcia MD [address] [place] [address] [place] [phone] PCP - General Family Medicine 10/15/20 documented as of this encounter
--- OUTSIDE RECORDS SUMMARY | 2024-05-13 06:09 | External Medical Summary ---
Author Name Unknown Address Unknown Organization K09:[facility] Carla Rodrí[place] [address] Laboratory Report Ordering Provider Test Date Status MONIQUE PEREZ 01/16/2024 12:15:05 Final Observation Date Value Abnormality Reference (Units ) Status SYNC LEUKOCYTES IN BLOOD BY AUTOMATED COUNT 01/16/2024 12:15:05 7.27 4.00-10.80 (K/uL) Final Segs 01/16/2024 12:15:05 71.7 40.0-75.0 (%) Final Lymphs % 01/16/2024 12:15:05 8.1 Below low normal 18.0-42.0 (%) Final Monos 01/16/2024 12:15:05 13.9 Above high normal 1.0-11.0 (%) Final Eosinophils 01/16/2024 12:15:05 5.1 0.0-6.0 (%) Final Basos 01/16/2024 12:15:05 1.2 0.0-2.0 (%) Final Absolute Segs 01/16/2024 12:15:05 5.21 1.80-7.70 (K/uL) Final Lymphs, absolute 01/16/2024 12:15:05 0.59 Below low normal 1.00-4.80 (K/ul) Final Monos, Abs 01/16/2024 12:15:05 1.01 0.00-1.10 (K/uL) Final Eos, Abs 01/16/2024 12:15:05 0.37 0.00-0.70 (K/uL) Final Basos, Abs 01/16/2024 12:15:05 0.09 0.00-0.20 (K/uL) Final Performing Location [facility] Carla Rodrí[place] [address]
--- OUTSIDE RECORDS SUMMARY | 2024-05-13 06:09 | External Medical Summary ---
Author Name Unknown Address Unknown Organization K01[facility] [place] [address] [place] [address] Laboratory Report Ordering Provider Test Date Status MONIQUE PEREZ 01/16/2024 12:15:05 Final Observation Date Value Abnormality Reference (Units ) Status Uric Acid 01/16/2024 12:15:05 6.4 3.4-7.0 (m g/dL) Final Performing Location [facility] - [address] [place] [address]
--- OUTSIDE RECORDS SUMMARY | 2024-05-13 06:09 | External Medical Summary | Summary of Care ---
Author Name Unknown Organization [facility] Address [address] [place] [address] Phone [phone] Care Team Providers Care Nuclear Operations Specialist Name Role Phone Jaime Garcia MD Primary Care Provide r Reason for Visit * Reason Comments IV Therapy Hydration. Medication Administration Xgeva. * Episode Based Medications (Routine) - Authorized Specialty Diagnoses / Procedures Referred By Contac t Referred To Contact Diagnoses Lambda light chain myeloma (HCC) Multiple myeloma without remission (HCC) Procedures [place] DENOSUMAB INJECTION Rosalio Amaral MD [address] [place] [address] Anc Hem/Onc Carla Renae DEPT CLOSED - 07/26/23 200 [facility] [place] [address] Referral ID Status Reason Start Date Expiration Date V isits Requested Visits Authorized [id number] Authorized 07/14/2023 05/16/2024 99 99 Encounter Details Date Type Department Care Team (Latest Contact Info) Description 01/12/2024 11:15 AM EDT Hem/Onc Treatment Hematology/Oncology Treatment, [place] [address] [place] [address] [place], Chair 10 Hem Onc [address] [place] [address] Lambda light chain myeloma (HCC)*; Multiple myeloma without remission (HCC); Dehydration; AL amyloidosis (HCC) Allergies Active Allergy Reactions Criticality Noted Date Comments Atorvastatin Muscle pain High 03/30/2019 Ezetimibe Muscle pain High 01/25/2020 documented as of this encounter (statuses as of 01/17/2024) Medications Medication Sig Dispensed Refills Start Date [...] mL 3 3 06/14/20 24 Active Pen [place] 32G X 4 MM Use as directed. 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 180 Capsule 1 4 Active Nystatin 542600 UNIT/ML Mouth/Throat SuspensionIndicatio ns:Multiple myeloma in relapse [...] as of this encounter (statuses as of 01/17/2024) Active Problems Problem Noted Date Diagnosed Date [...] as of this encounter (statuses as of 01/17/2024) Resolved Problems Problem Noted Date Diagnosed Date [...] as of this encounter (statuses as of 01/17/2024) Immunizations Name Administration Dates Next Due COVID-19, [...] Reading Time Taken Comments Blood Pressure 120/82 01/12/2024 11:15 AM EDT Pulse 80 01/12/2024 11:15 AM EDT Temperature 36.1 C (97 F) 01/12/2024 11: 15 AM EDT Respiratory Rate 18 01/12/2024 11:1 5 AM EDT Oxygen Saturation 96% 01/12/2024 11: 15 AM EDT Inhaled Oxygen Concentration - - Weight 61.1 kg (134 lb 12.8 oz) 024 11:15 AM EDT Height - - Body Mass Index 19.91 12/29/2023 9:09 AM EDT documented in this encounter Nursing Notes * Sandra Ren RN - 01/12/2024 3:46 PM EDT Goals: Patient will remain free from injury. Possible barriers to meeting goals: Fall risk d/t ambulation with IV pole. Stability of the patient: Moderately unstable - medium risk of patient condition declining or worsening Summary regarding today's goals: Met: Patient remained free of injury. Patient tolerated infusion well. Discharged in stable condition. * Sandra Ren RN - 01/12/2024 1:18 PM EDT Chair 11. Patient arrived for cytoxan/darzalex- faspro and xgeva. Patient stated that he isn't feeling well today. He feels very dizzy and thinks he is dehydrated and needs fluids. [place] texted Dr. Amaral, per Dr. Amaral via TT, delay treatment until Tuesday and give hydration today, order placed. Patient verbalized understanding. Patient is still getting xgeva today, denies any recent dental work/ dental pain. VAD accessed Safety and Risk for Injury Patient will remain free from injury. Ensure appropriate safety devices are available. Provide and maintain safe environment. documented in this encounter Plan of Treatment Upcoming Encounters Date Type Department Care Team (Late st Contact Info) Description 01/19/2024 3:00 PM EDT Office Visit Cardiology, [facility] 132 [facility] [place] [address] Beth Gibbs CRNP 132 [facility] [place] [address] 01/27/2024 9:00 AM EDT Laboratory Laboratory [facility] [place] [address] [place] [phone] [facility] Lab [facility] [address] [place] [address] 01/27/2024 10:00 AM EDT Home Visit [facility] 132 [facility] [place] [address] Sulma Seth, RN 132 [facility] [place] [address] 01/27/2024 10:00 AM EDT Hem/Onc Treatment Hematology/Oncology Treatment, [place] [address] [place] [phone] [place], Chair 11 Hem Onc Scenery [address] [place] [address] 02/03/2024 8:20 AM EDT Anticoagulation Pharmacy, [address] [place] [address] [place] [address] 02/03/2024 8:30 AM EDT Office Visit Pharmacy, [address] [place] [address] [place] [address] 02/07/2024 9:00 AM EDT Nurse Only Ancillary [address] [place] [address] [place], Nurse [address] [place] [address] 02/15/2024 1:30 PM EDT Telemedicine Hematology Oncology Cancer [place] Tyree [place]GAR[place] [address] [place] [address] Rosalio Amaral MD [address] [place] [address] 03/16/2024 2:00 PM EDT Telemedicine Hematology Oncology Cancer [place] [address] [place] [address] Thierno Patel, LALA [address] [place] [address] 04/16/2024 2:30 PM EDT Telemedicine [facility] [address] [place] [address] Rosalio Amaral MD [address] [place] [address] 04/19/2024 9:30 AM EDT Office Visit Cardiology [address] [place] [address] Tim Ruiz PA-C [address] [place] [address] 05/15/2024 2:00 PM EDT Telemedicine Hematology [facility] [address] [place] [address] Thierno Patel PA-C [address] [place] [address] 06/20/2024 3:00 PM EDT [facility]med[facility] [address] [place] [address] Rosalio Amaral MD [address] [place] [address] 10/30/2024 1:45 PM EST Office Visit Urology, [facility] [address] [place] [address] Devyn Paniagua MD [address] [place] [address] [place] [address] 01/01/2025 10:20 AM EDT Office Visit Otolaryngology [facility] [address] [place] [address] Haley Aguero PA-C [address] [place] [address] Health Maintenance Due Date Last Done Comments [...] Additional history exists CKD HGB USE SMARTSET 17188 01/15/202501/15, 01/16/2024, 01/12/2024, Additional history exists CKD PHOS USE SMARTSET 13753 01/15/2025 05/0 02/2024, 01/12/2024, 12/30/2023, Additional history [...] encounter Medical Devices Implanted Type Area Food Preparer Device Identifier Shelf Expiration Date Model / Serial / Lot Port Power Mri W/8fr Cath - [id number] Implanted:Qty: 1 on 09/26/2020 by Simone Michelle MD at OR [facility] Right: Chest CR BARD : PERIPHERAL VASCULAR 10/12/2021 [id number] / / [id number] Description:right IJ Lens Intraoc 19.0 - [id number] - [id number] Implanted:Qty: 1 on 02/03/2021 by Chris Sexton MD at OR [facility] Right: Eye BAUSCH [employer] LOMB 09/11/2025 [id number] / [id number] / Lens Intraoc 19.0 - [id number] - [id number] Implanted:Qty: 1 on 02/24/2021 by Chris Sexton MD at OR [facility] Left: Eye BAUSCH & LOMB 10/12/2025 [id number] / [id number] / [id number] System Urolift - [id number] Implanted:Qty: 2 on 03/17/2023 by Devyn Paniagua MD at OR [facility] N/A: Urethra [employer] 11/18/2023 MD954-6 / / [id number] System Urolift - [id number] Implanted:Qty: 3 on 03/17/2023 by Devyn Paniagua MD at OR [facility] N/A: Urethra [employer] 11/03/2023 HQ620-3 / / [id number] documented as of this encounter Results * PHOSPHORUS (01/16/2024 12:15 PM EDT) Phosphorus 3.6 2.5 - 4.8 mg/dL 01/16/2024 12:41 PM EDT [facility] 56 Blood Venous blood specimen / Unknown Venipuncture / Unknown 01/16/2024 12:15 PM EDT 01/16/2024 12:15 PM EDT Rosalio Amaral MD LAB BLOOD ORDERABLES [facility] 56 [address] [place] [address] documented in this encounter Visit Diagnoses Diagnosis Lambda light chain myeloma (HCC)- Primary Multiple myeloma, without mention of having achieved remission Multiple myeloma without remission (HCC) Multiple myeloma, without mention of having achieved remission Dehydration AL amyloidosis (HCC) Other amyloidosis documented in this encounter Administered Medications Inactive Administered Medications - up to 3 most recent administrations Medication Order MAR Action Action Date Dose Rate Site Denosumab (Xgeva) subcut inj 120 mg 120 mg, Subcutaneous, ONCE, On Patria 01/12/24 at 1315, For 1 dose Given 01/12/2024 12:09 PM EDT 120 mg Arm Right Upper hEParin 100 UNIT/ML Lock Flush inj 500 Units 500 Units (5 mL), IV Lock, PRN Other, IV Flush, Starting on Patria 01/12/24 at 1202, Until Patria 01/12/24 at 1948, For 24 hours, Do not flush if lock, PICC, or central line not in place; IV infusing or unable to flush. Given 01/12/2024 3:04 PM EDT 500 Units isolyte 1,000 mL bolus infusion Intravenous, at 333.33 mL/hr Administer over 3 Hours, Plasma-LYTE 148, isolyte-S, and isolyte-S pH 7.4 are considered equivalent - including for MAR barcode scanning., ONCE, 1 dose, On Patria 01/12/24 at 1245 Start Infusion 01/12/2024 12:00 PM EDT 1,000 mL 333.33 mL/hr sodium chloride 0.9 % flush central line 10 mL 10 mL, IV Push, PRN Other, IV Flush, Starting on Patria 01/12/24 at 1202, Until Patria 01/12/24 at 1948, For 24 hours, Do not flush if lock, PICC, or central line not in place; IV infusing or unable to flush. Given 01/12/2024 3:04 PM EDT 10 mL documented in this [...] were consensually agreed upon. Care Teams Nuclear Operations Specialist Relationship Specialty Start Date End Date Jaime Garcia MD [address] [place] [address] [place] [phone] PCP - General Family Medicine 10/15/20 documented as of this encounter
--- OUTSIDE RECORDS SUMMARY | 2024-05-13 06:09 | External Medical Summary | Summary of Care ---
Author Name Unknown Organization [facility] Address [address] [place] [address] Phone [phone] Care Team Providers Care Board Winder Name Role Phone Jaime Garcia MD Primary Care Provide r Reason for Visit * Reason Comments Chemotherapy Darzalex Faspro/ Cyt oxan/ HOLD Xgeva * Episode Based Medications (Routine) - Authorized Specialty Diagnoses / Procedures Referred By Contac t Referred To Contact Diagnoses Lambda light chain myeloma (HCC) AL amyloidosis (HCC) Procedures ID DARATUMUMAB, HYALURONIDASE ID CYCLOPHOSPHAMIDE 100 MG INJ ID INJ, CYCLOPHOSPHAMIDE, NOS Rosalio Amaral MD [address] [place], [place] [address] [address] Anc Hem/Onc Scenesukhdeep Renae DEPT CLOSED - 07/26/23 [address] [place] [address] Referral ID Status Reason Start Date Expiration Date V isits Requested Visits Authorized [id number] Authorized 10/21/2023 10/21/2024 999 999 Encounter Details Date Type Department Care Team (Latest Contact Info) Description 12/30/2023 1:45 PM EDT Hem/Onc Treatment Hematology/Oncolog y Treatment, [place] [address] [place] [address] [place], Chair 2 Hem Onc Scenery [address] [place] [address] Lambda light chain myeloma (HCC)*; [place] amyloidosis [...] goal of less than 7.0% ([facility]) Use as directed daily. Test once daily DxE11.9 100 Strip 03/02/20 Active LancetsIndication s:Type 2 diabetes mellitus with hemoglobin A1c goal of less than 7.0% ([facility]) Test once daily DxE11.9. 100 Each [...] 6 mL 3 06/15/20 23 Active Pen Suring 32G X 4 MM Use as directed. [...] 1 07/11/20 23 024 Discontinued(Re fill) Nystatin 259052 UNIT/ML Mouth/Throat SuspensionIndicat ions:Multiple myeloma in relapse [...] Multiple myeloma without remission 06/14/2014 Overview: Dr Rodriegs/ [facility] ADVANCE DIRECTIVE [...] 01/19/2024 3:00 PM EDT Office Visit Cardiology, [facility] 132 [facility] [place] [address] Beth Gibbs CRNP 132 [facility] [place] [address] 01/27/2024 9:00 AM EDT Laboratory Laboratory [facility] [place] [address] [place] [phone] [facility] Scene [address] [facility] [place] [address] 01/27/2024 10:00 AM EDT Home Visit [facility] 132 [facility] [place] [address] Sulma Seth, RN [address] [place] [address] 01/27/2024 10:00 AM EDT Hem/Onc Treatment Hematology/Oncology Treatment, [place] [address] [place] [address] Park, Chair 11 Hem Onc Scenery [address] [facility] [address] 02/03/2024 8:20 AM EDT Anticoagulation Pharmacy, [address] [place] [address] [place] [address] 02/03/2024 8:30 AM EDT Office Visit Pharmacy, [address] [place] [address] [place] [address] 02/07/2024 9:00 AM EDT Nurse Only Ancillary [address] [place] [address] [place], Nurse [address] [place] [address] 02/15/2024 1:30 PM EDT Telemedicine [facility] Tyree UGARTE [address] [place] [address] Rosalio Amaral MD [address] [place] [id number] 03/16/2024 2:00 PM EDT Telemedicine [facility] UGARTE [address] [place] [address] Thierno Patel, LALA [address] [place] [address] 04/16/2024 2:30 PM EDT [facility]med[facility] [address] [place] [address] Rosalio Amaral MD [address] [place] [address] 04/19/2024 9:30 AM EDT Office Visit Cardiology [address] [place] [address] Tim Ruiz PA-C [address] [place] [address] 05/15/2024 2:00 PM EDT Telemedicine [facility] [address] [place] [address] Thierno Patel PA-C [address] [place] [address] 06/20/2024 3:00 PM EDT Telemedicine [facility] [address] [place] [address] Rosalio Amaral MD [address] [place] [address] 10/30/2024 1:45 PM EST Office Visit Urology, [facility] [address] [place] [address] Devyn Paniagua MD 27 [facility] [address] [place] [address] 01/01/2025 10:20 AM EDT Office Visit Otolaryngology [facility] [address] [place] [address] Haley Aguero PA-C [address] [place] [address] Health Maintenance Due Date Last Done Comments [...] Additional history exists CKD HGB USE SMARTSET 19782 01/15/202501/15, 01/16/2024, 01/12/2024, Additional history exists CKD PHOS USE SMARTSET 82448 01/15/2025 05/0 02/2024, 01/12/2024, 12/30/2023, Additional history [...] this encounter Medical Devices Implanted Type Area Window Air Conditioner Installer Device Identifier Shelf Expiration Date Model / Serial / Lot Port Power Mri W/8fr Cath - [id number] Implanted:Qty: 1 on 09/26/2020 by Simone Michelle MD at OR [facility] Right: Chest CR BARD : PERIPHERAL VASCULAR 10/12/2021 [id number] / / [id number] Description:right IJ Lens Intraoc 19.0 - [id number] - [id number] Implanted:Qty: 1 on 02/03/2021 by Chris Sexton MD at OR [facility] Right: Eye BAUSCH & LOMB 09/11/2025 [id number] / [id number] / Lens Intraoc 19.0 - [id number] - [id number] Implanted:Qty: 1 on 02/24/2021 by Crhis Sexton MD at OR [facility] Left: Eye BAUSCH & LOMB 10/12/2025 [id number] / [id number] / [id number] System Urolift - [id number] Implanted:Qty: 2 on 03/17/2023 by Devyn Paniagua MD at OR [facility] N/A: Urethra [employer] 11/18/2023 TI585-0 / / [id number] System Urolift - [id number] Implanted:Qty: 3 on 03/17/2023 by Devyn Paniagua MD at OR [facility] N/A: Urethra [employer] 11/03/2023 IH464-8 / / [id number] documented as of this encounter Visit Diagnoses [...] 500 mL/hr Daratumumab-hyaluronida se-fihj (Darzalex Faspro) 1800 mg-07129 units/ 15 ml subcut inj 15 mL, [...] and were consensually agreed upon. Care Teams Board Winder Relationship Specialty Start Date End Date Jaime Garcia MD [address] [place] [address] [place] [address] PCP - General Family Medicine 10/15/20 documented as of this encounter
--- OUTSIDE RECORDS SUMMARY | 2024-05-13 06:09 | External Medical Summary | Summary of Care ---
Author Name Unknown Organization [facility] Address [address] [place] [address] Phone [phone] Care Team Providers Care Filling Machine Set Up Mechanic Name Role Phone Jaime Garcia MD Primary Care Provide r Reason for Visit * Reason Comments Chemotherapy Cytoxan/Darzalex Fas pro * Episode Based Medications (Routine) - Authorized Specialty Diagnoses / Procedures Referred By Contbianca t Referred To Contact Diagnoses Lambda light chain myeloma (HCC) AL amyloidosis (HCC) Procedures [place] DARATUMUMAB, HYALURONIDASE [place] CYCLOPHOSPHAMIDE 100 MG INJ [place] INJ, CYCLOPHOSPHAMIDE, NOS Rosalio Amaral MD [facility] [place] [address] Anc Hem/Onc Scenery [place] DEPT CLOSED - 07/26/23 [address] [place] [address] Referral ID Status Reason Start Date Expiration Date V isits Requested Visits Authorized [id number] Authorized 10/21/2023 10/21/2024 999 999 Encounter Details Date Type Department Care Team (Latest Contact Info) Description 01/16/2024 1:00 PM EDT Hem/Onc Treatment Hematology/Oncolog y Treatment, [place] [address] [place] [address] [place], Chair 6 Hem Onc Scenery [address] [place] [phone] Lambda light chain myeloma (HCC)*; AL amyloidosis [...] mL 3 3 06/14/20 24 Active Pen Aurora 32G X 4 MM Use as directed. [...] morning. 180 Capsule 1 4 Active Nystatin 897798 UNIT/ML Mouth/Throat SuspensionIndicatio ns:Multiple myeloma in relapse [...] 01/19/2024 3:00 PM EDT Office Visit Cardiology, [facility] 132 [facility] [place] [address] Beth Gibbs CRNP 132 [facility] [place] [address] 01/27/2024 9:00 AM EDT Laboratory Laboratory [facility] [address] [place] [phone] [place], Lab [facility] 200 [facility] [place] [address] 01/27/2024 10:00 AM EDT [facility] 132 [facility] [place] [address] Sulma Seth RN 132 [facility] [place] [address] 01/27/2024 10:00 AM EDT Hem/Onc Treatment Hematology/Oncology Treatment, [place] [address] [place] [phone] [place], Chair 11 Hem Onc Scenery [address] [place] [address] 02/03/2024 8:20 AM EDT Anticoagulation Pharmacy, [address] [place] [address] [place] [address] 02/03/2024 8:30 AM EDT Office Visit Pharmacy, [address] [place] [address] [place] [address] 02/07/2024 9:00 AM EDT Nurse Only Ancillary [address] [place] [address] [place], Nurse [address] [place] [address] 02/15/2024 1:30 PM EDT [facility]medicine [facility] [address] [place] [address] Rosalio Amaral MD [address] [place] [address] 03/16/2024 2:00 PM EDT Telemedicine [facility] [address] [place] [address] Thierno Patel PA-C [address] [place] [address] 04/16/2024 2:30 PM EDT Telemedicine Hematology Oncology [facility] [place] Tyree UGARTE [address] [place] [address] Rosalio Amaral MD [address] [place] [address] 04/19/2024 9:30 AM EDT Office Visit Cardiology [address] [place] [address] Tim Ruiz PA-C [address] [place] [address] 05/15/2024 2:00 PM EDT Telemedicine [facility] [address] [place] [address] Thierno Patel PA-C [address] [place] [address] 06/20/2024 3:00 PM EDT Telemedicine H[facility]ology [facility] [place] [address] [place] [address] Rosalio Amaral MD [address] [place] [address] 10/30/2024 1:45 PM EST Office Visit Urology, [facility] [address] [facility] [place] [address] Devyn Paniagua MD [address] [place] [address] 01/01/2025 10:20 AM EDT Office Visit Otolaryngology [facility] 132 [facility] [place] [address] Haley Aguero PA-C 132 [facility] [place] [address] Health Maintenance Due Date Last Done Comments [...] 07/05/2022, Additional history exists GFR 07/18/2024 01/16/2024, 050 10/2023, 12/30/2023, Additional history exists TSH 07/25/2024 07/25/2023, 03/12, 01/31/2023, Additional history exists Albumin/Creatinine Ratio 12/29/2024 024, 09/08/2023, 06/22/2023, Additional history exists CKD HGB USE SMARTSET 33081 01/15/202501/15, 01/16/2024, 01/12/2024, Additional history exists CKD PHOS USE SMARTSET 39952 01/15/2025 05/0 02/2024, 01/12/2024, 12/30/2023, Additional history [...] this encounter Medical Devices Implanted Type Area Topographical Surveyor Device Identifier Shelf Expiration Date Model / Serial / Lot Port Power Mri W/8fr Cath - [id number] Implanted:Qty: 1 on 09/26/2020 by Simone Michelle MD at OR [facility] Right: Chest CR BARD : PERIPHERAL VASCULAR 10/12/2021 [id number] / / [id number] Description:right IJ Lens Intraoc 19.0 - [id number] - [id number] Implanted:Qty: 1 on 02/03/2021 by Chris Sexton MD at OR [facility] Right: Eye BAUSCH & LOMB 09/11/2025 [id number] / [id number] / Lens Intraoc 19.0 - [id number] - [id number] Implanted:Qty: 1 on 02/24/2021 by Chris Sexton MD at OR [facility] Left: Eye BAUSCH & LOMB 10/12/2025 [id number] / [id number] / [id number] System Urolift - [id number] Implanted:Qty: 2 on 03/17/2023 by Devyn Paniagua MD at OR [facility] N/A: Urethra [employer] 11/18/2023 CR466-9 / / [id number] System Urolift - [id number] Implanted:Qty: 3 on 03/17/2023 by Devyn Paniagua MD at OR [facility] N/A: Urethra [employer] 11/03/2023 CG248-3 / / [id number] documented as of this encounter Visit Diagnoses [...] ONCE PRN Other, Hypersensitivity Reaction, Starting on Tue01/16/24 at 1307, Until Tu01/17/24 at 1306, For 24 hours EPINEPHrine 1 MG/ML inj 0.3 mg 0.3 mg, Intramuscular, ONCE PRN Other, Hypersensitivity Reaction or Anaphylaxis, Starting on Tue01/16/24 at 1307, Until Tu01/17/24 at 1306, For 24 hours hEParin 100 UNIT/ML Lock Flush inj 500 Units 500 Units (5 mL), IV Lock, PRN Other, IV Flush, Starting on Tue01/16/24 at 1307, Until Tu01/17/24 at 1306, For 24 hours, Do not flush if lock, PICC, or central line not in place; IV infusing or unable to flush. Given 01/16/2024 2:35 PM EDT 500 Units Hydrocortisone Sod Suc (PF) (Solu-Cortef) inj 100 mg 100 mg, IV Push, ONCE PRN Other, Hypersensitivity Reaction, Starting on Tue01/16/24 at 1307, Until Tue01/17/24 at 1306, For 24 hours meperidine (Demerol) 25 MG/ML inj 25 mg 25 mg, IV Push, ONCE PRN Shivering, Starting on Tue01/16/24 at 1307, Until Tue01/17/24 at 1306, For 24 hours NSS infusion 500 mL, Intravenous, at 50 mL/hr, CONTINUOUS, Starting on Tue01/16/24 at 1415, Until Tue01/17/24 at 0014 Start Infusion 01/16/2024 1:15 PM EDT 500 mL 50 mL/hr sodium chloride 0.9 % flush central line 10 mL 10 mL, IV Push, PRN Other, IV Flush, Starting on Tue01/16/24 at 1307, Until Tue01/17/24 at 1306, For 24 hours, Do not flush if lock, PICC, or central line not in place; IV infusing or unable to flush. Given 01/16/2024 2:34 PM EDT 10 mL Inactive Administered Medications [...] 2:02 PM EDT 500 mg 555 mL/hr Daratumumab-hyaluronidas e-fihj (Darzalex Faspro) 1800 mg-73656 units/ 15 ml subcut inj 15 mL, [...] 10 mg 10 mg, Oral, ONCE, On 01/16/24 at 1345, For 1 dose Given 01/16/2024 1:37 PM EDT 10 mg documented in this encounter [...] and were consensually agreed upon. Care Teams Filling Machine Set Up Mechanic Relationship Specialty Start Date End Date Jaime Garcia MD [address] [place] [address] [place] [phone] PCP - General Family Medicine 10/15/20 documented as of this encounter
--- OUTSIDE RECORDS SUMMARY | 2024-05-13 06:09 | External Medical Summary | Summary of Care ---
Author Name Unknown Organization [facility] Address [address] [place] [address] Phone [phone] Care Team Providers Care Hvac Service Tech Name Role Phone Jaime Garcia MD Primary Care Provide r Reason for Visit * Reason Comments Chemotherapy Darzalex Faspro/ Cyt oxan/ HOLD Xgeva * Episode Based Medications (Routine) - Authorized Specialty Diagnoses / Procedures Referred By Contac t Referred To Contact Diagnoses Lambda light chain myeloma (HCC) AL amyloidosis (HCC) Procedures [place] DARATUMUMAB, HYALURONIDASE [place] CYCLOPHOSPHAMIDE 100 MG INJ [place] INJ, CYCLOPHOSPHAMIDE, NOS Rosalio Amaral MD [address] [place], [place] [address] [address] Anc Hem/Onc Scenesukhdeep Renae DEPT CLOSED - 07/26/23 [address] [place] [address] Referral ID Status Reason Start Date Expiration Date V isits Requested Visits Authorized [id number] Authorized 10/21/2023 10/21/2024 999 999 Encounter Details Date Type Department Care Team (Latest Contact Info) Description 12/30/2023 1:45 PM EDT Hem/Onc Treatment Hematology/Oncolog y Treatment, [place] [address] [place] [address] [place], Chair 2 Hem Onc Scenery [address] [place] [address] Lambda light chain myeloma (HCC)*; AL amyloidosis [...] 6 mL 3 06/15/20 23 Active Pen [place] 32G X 4 MM Use as directed. 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,Paroxysma l atrial [...] 1 07/11/20 23 024 Discontinued(Re fill) Nystatin 164997 UNIT/ML Mouth/Throat SuspensionIndicat ions:Multiple myeloma in relapse [...] without remission 06/14/2014 Overview: Dr Rodriges/ [facility] ADVANCE DIRECTIVE INFORMATION 10/13/2006 Overview: No, [...] 01/19/2024 3:00 PM EDT Office Visit Cardiology, [facility] 132 [facility] [place] [address] Beth Gibbs CRNP 132 [facility] [place] [address] 01/27/2024 9:00 AM EDT Laboratory Laboratory [facility] [place] [address] [place] [phone] [facility] Scene [address] [facility] [place] [address] 01/27/2024 10:00 AM EDT Home Visit [facility] 132 [facility] [place] [address] Sulma Seth, RN [address] [place] [address] 01/27/2024 10:00 AM EDT Hem/Onc Treatment Hematology/Oncology Treatment, [place] [address] [place] [address] [place], Chair 11 Hem Onc Scenery [address] [facility] [address] 02/03/2024 8:20 AM EDT Anticoagulation Pharmacy, [address] [place] [address] [place] [address] 02/03/2024 8:30 AM EDT Office Visit Pharmacy, [address] [place] [address] [place] [address] 02/07/2024 9:00 AM EDT Nurse Only Ancillary [address] [place] [address] [place], Nurse [address] [place] [address] 02/15/2024 1:30 PM EDT Telemedicine [facility] Tyree UGARTE [address] [place] [address] Rosalio Amaral MD [address] [place] [id number] 03/16/2024 2:00 PM EDT Telemedicine Hematology [facility] Tyree UGARTE [address] [place] [address] Thierno Patel, LALA [address] [place] [address] 04/16/2024 2:30 PM EDT Telemedicine [facility] [address] [place] [address] Rosalio Amaral MD [address] [place] [address] 04/19/2024 9:30 AM EDT Office Visit Cardiology [address] [place] [address] Tim Ruiz PA-C [address] [place] [address] 05/15/2024 2:00 PM EDT Telemedicine Hematology [facility] [address] [place] [address] Thierno Patel PA-C [address] [place] [address] 06/20/2024 3:00 PM EDT Telemedicine Hematology [facility] [address] [place] [address] Rosalio Amaral MD [address] [place] [address] 10/30/2024 1:45 PM EST Office Visit Urology, [facility] [address] [place] [address] Devyn Paniagua MD 27 [facility] 270 [place] [address] 01/01/2025 10:20 AM EDT Office Visit Otolaryngology [facility] [address] [place] [address] Haley Aguero PA-C [address] [place] [address] Health Maintenance Due Date Last Done Comments [...] Additional history exists CKD HGB USE SMARTSET 49117 01/15/202501/15, 01/16/2024, 01/12/2024, Additional history exists CKD PHOS USE SMARTSET 13477 01/15/2025 05/0 02/2024, 01/12/2024, 12/30/2023, Additional history [...] this encounter Medical Devices Implanted Type Area Gun Number Device Identifier Shelf Expiration Date Model / Serial / Lot Port Power Mri W/8fr Cath - [id number] Implanted:Qty: 1 on 09/26/2020 by Simone Michelle MD at OR [facility] Right: Chest CR BARD : PERIPHERAL VASCULAR 10/12/2021 [id number] / / [id number] Description:right IJ Lens Intraoc 19.0 - [id number] - [id number] Implanted:Qty: 1 on 02/03/2021 by Chris Sexton MD at OR [facility] Right: Eye BAUSCH & LOMB 09/11/2025 [id number] / [id number] / Lens Intraoc 19.0 - [id number] - [id number] Implanted:Qty: 1 on 02/24/2021 by Chris Sexton MD at OR [facility] Left: Eye BAUSCH & LOMB 10/12/2025 [id number] / [id number] System Urolift - [id number] Implanted:Qty: 2 on 03/17/2023 by Devyn Paniagua MD at OR [facility] N/A: Urethra [employer] 11/18/2023 KF015-2 / / [id number] System Urolift - [id number] Implanted:Qty: 3 on 03/17/2023 by Devyn aPniagua MD at OR [facility] N/A: Urethra [employer] 11/03/2023 YL531-5 / / [id number] documented as of this encounter Visit Diagnoses [...] 500 mL/hr Daratumumab-hyaluronida se-fihj (Darzalex Faspro) 1800 mg-94436 units/ 15 ml subcut inj 15 mL, [...] and were consensually agreed upon. Care Teams Hvac Service Tech Relationship Specialty Start Date End Date Jaime Garcia MD [address] [place] [address] [place] [phone] PCP - General Family Medicine 10/15/20 documented as of this encounter
--- OUTSIDE RECORDS SUMMARY | 2024-05-13 06:10 | External Medical Summary ---
Author Name Unknown Address Unknown Organization K09:[facility] [address] [address] [address] Laboratory Report Ordering Provider Test Date Status MONIQUE PEREZ 01/12/2024 10:11:24 Final Observation Date Value Abnormality Reference (Units ) Status SYNC LEUKOCYTES IN BLOOD BY AUTOMATED COUNT 01/12/2024 10:11:24 8.49 4.00-10.80 (K/uL) Final Segs 01/12/2024 10:11:24 80.1 Above high normal 40.0-75.0 (%) Final Lymphs % 01/12/2024 10:11:24 4.9 Below low normal 18.0-42.0 (%) Final Monos 01/12/2024 10:11:24 11.1 Above high normal 1.0-11.0 (%) Final Eosinophils 01/12/2024 10:11:24 3.4 0.0-6.0 (%) Final Basos 01/12/2024 10:11:24 0.5 0.0-2.0 (%) Final Absolute Segs 01/12/2024 10:11:24 6.80 1.80-7.70 (K/uL) Final Lymphs, absolute 01/12/2024 10:11:24 0.42 Below low normal 1.00-4.80 (K/ul) Final Monos, Abs 01/12/2024 10:11:24 0.94 0.00-1.10 (K/uL) Final Eos, Abs 01/12/2024 10:11:24 0.29 0.00-0.70 (K/uL) Final Basos, Abs 01/12/2024 10:11:24 0.04 0.00-0.20 (K/uL) Final Performing Location [facility] [place] [address]
--- OUTSIDE RECORDS SUMMARY | 2024-05-13 06:10 | External Medical Summary | Summary of Care ---
Author Name Unknown Organization [facility] Address [address] [place] [address] Phone [phone] Care Team Providers Care Geochemist Name Role Phone Jaime Garcia MD Primary Care Provide r Reason for Visit * Reason Comments Outpatient Testing Encounter Details Date Type Department Care Team (Late st Contact Info) Description 01/12/2024 10:10 AM EDT Laboratory Laboratory Scenery [facility] [address] [place] [phone] [place], Lab Scenery [address] [place] [address] Multiple myeloma in relapse (HCC); Multiple myeloma without remission (HCC) Allergies Active Allergy Reactions Criticality Noted Date Comments Atorvastatin Muscle pain High 03/30/2019 Ezetimibe Muscle pain High 01/25/2020 documented as of this encounter (statuses as of 01/12/2024) Medications Medication Sig Dispensed Refills Start Date [...] of less than 7.0% ([facility]) Use as directed daily. Test once daily DxE11.9 100 Strip 5 1 Active LancetsIndications: Type 2 diabetes mellitus with hemoglobin A1c goal of less than 7.0% ([facility]) Test once daily DxE11.9. 100 [...] mL 3 3 06/14/20 24 Active Pen [place] 32G X 4 MM Use as directed. 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 As needed.. 0 4 Active oxyCODONE HCl 5 MG Oral Tablet (Oxy IR)Indications:Mult iple myeloma in relapse ([facility]) Take 1 Tablet by mouth [...] morning. 180 Capsule 1 4 Active Nystatin 254790 UNIT/ML Mouth/Throat SuspensionIndicatio ns:Multiple myeloma in relapse [...] as of this encounter (statuses as of 01/12/2024) Active Problems Problem Noted Date Diagnosed Date [...] as of this encounter (statuses as of 01/12/2024) Resolved Problems Problem Noted Date Diagnosed Date [...] as of this encounter (statuses as of 01/12/2024) Immunizations Name Administration Dates Next Due COVID-19, [...] Care Team (Late st Contact Info) Description 01/12/2024 11:15 AM EDT [facility] [address] [facility] [place] [phone] [place], Chair 10 Hem Onc [facility] [address] [facility] [place] [address] Arrived 01/19/2024 3:00 PM EDT Office Visit Cardiology, [facility] [address] [place] [address] Beth Gibbs [facility] [place] [address] 01/27/2024 9:00 AM EDT Laboratory Laboratory [facility] [place] [address] [facility] [place] [phone] [place], Lab [facility] 200 [facility] [place] [address] 01/27/2024 10:00 AM EDT Home Visit isinger at [facility] [address] [place] [address] Sulma Seth, BOBBY [address] [place] [address] 01/27/2024 10:00 AM EDT Hem[facility] [address] [facility] [place] [phone] [place], Chair 11 Hem Onc Scenery [address] [place] [address] 02/03/2024 8:20 AM EDT Anticoagulation Pharmacy, [address] [place] [address] [place] [address] 02/03/2024 8:30 AM EDT Office Visit Pharmacy, [address] [place] [address] [place] [address] 02/07/2024 9:00 AM EDT Nurse Only Ancillary [address] [place] [address] [place], Nurse [address] [place] [address] 02/15/2024 1:30 PM EDT Telemedicine [facility] [place] [address] [facility] [place] [address] Rosalio Amaarl MD [address] [facility] [place] [address] 04/19/2024 9:30 AM EDT Office Visit Cardiology [address] [place] [address] Tim Ruiz PA-C [address] [place] [address] 10/30/2024 1:45 PM EST Office Visit Urology, [facility] [address] [place] [address] Devyn Paniagua MD [address] [facility] [address] [place] [phone] 01/01/2025 10:20 AM EDT Office Visit Otolaryngology [facility] [address] [place] [address] Haley Aguero PA-C [address] [place] [address] Pending Results Name Type Priority Associated Diagnoses Date /Time URIC ACID Lab STAT Multiple myeloma in relapse (HCC) 01/12/2024 10:11 AM EDT LD Lab STAT Multiple myeloma in relapse (HCC) 01/12/2024 10:11 AM EDT PHOSPHORUS Lab STAT Multiple myeloma in relapse ([facility]) 01/12/2024 11:04 AM EDT Health Maintenance Due Date Last [...] history exists CKD PHOS USE SMARTSET 93469 12/29/202412/11, 11/14/2023, 10/28/2023, Additional history exists CKD HGB USE SMARTSET 10044 01/11/202501/11, 01/12/2024, 12/30/2023, Additional history exists DTaP,Tdap,and Td [...] this encounter Medical Devices Implanted Type Area Wheel Assembler Device Identifier Shelf Expiration Date Model / Serial / Lot Port Power Mri W/8fr Cath - [id number] Implanted:Qty: 1 on 09/26/2020 by Simone Michelle MD at OR [facility] Right: Chest CR BARD : PERIPHERAL VASCULAR 10/12/2021 [id number] / / [id number] Description:right IJ Lens Intraoc 19.0 - [id number] - [id number] Implanted:Qty: 1 on 02/03/2021 by Chris Sexton MD at OR [facility] Right: Eye [employer] 09/11/2025 [id number] / [id number] / Lens Intraoc 19.0 - [id number] - [id number] Implanted:Qty: 1 on 02/24/2021 by Chris Sexton MD at OR [facility] Left: Eye [employer]OM[employer] 10/12/2025 [id number] / [id number] / [id number] System Urolift - [id number] Implanted:Qty: 2 on 03/17/2023 by Devyn Paniagua MD at OR [facility] N/A: Urethra [employer] 11/18/2023 [id number] / / [id number] System Urolift - [id number] Implanted:Qty: 3 on 03/17/2023 by Devyn Paniagua MD at OR [facility] N/A: Urethra [employer] 11/03/2023 [id number] / / [id number] documented as of this encounter Procedures Procedure Name Priority Date/Time Associated Diagnosis Comments DIFFERENTIAL, AUTOMATED STAT 01/12/2024 10:11 AM EDT Multiple myeloma in relapse (HCC) COMPREHENSIVE METABOLIC PANEL STAT 01/12/2024 10:11 AM EDT Multiple myeloma in relapse (HCC) CBC STAT 01/12/2024 10:11 AM EDT Multiple myeloma in relapse ([facility]) CBC STAT 01/12/2024 10:11 AM EDT Multiple myeloma in relapse (HCC) documented in this encounter Results * (ABNORMAL) DIFFERENTIAL, AUTOMATED (01/12/2024 10:11 AM EDT) WBC 8.49 4.00 - 10.80 K/uL 01/12/2024 10:20 AM EDT LAB[facility]ATORY [place] 56-02 Neutrophils % 80.1(H) 40.0 - 75.0 % 01/12/2024 10:20 AM EDT [facility] [place] 56-02 Lymphocytes % 4.9(L) 18.0 - 42.0 % 01/12/2024 10:20 AM EDT [facility] 56-02 Monocytes % 11.1(H) 1.0 - 11.0 % 01/12/2024 10:20 AM EDT [facility] 56-02 Eosinophils % 3.4 0.0 - 6.0 % 01/12/2024 10:20 AM EDT [facility] 56-02 Basophils % 0.5 0.0 - 2.0 % 01/12/2024 10:20 AM EDT [facility] Absolute Neutrophils 6.80 1.80 - 7.70 K/uL 01/12/2024 10:20 AM EDT [facility] Absolute Lymphocytes 0.42(L) 1.00 - 4.80 K/ul 01/12/2024 10:20 AM EDT [facility] Absolute Monocytes 0.94 0.00 - 1.10 K/uL 01/12/2024 10:20 AM EDT [facility] Absolute Eosinophils 0.29 0.00 - 0.70 K/uL 01/12/2024 10:20 AM EDT [facility] Absolute Basophils 0.04 0.00 - 0.20 K/uL 01/12/2024 10:20 AM EDT [facility] Blood Venous blood specimen / Unknown Venipuncture / Unknown 01/12/2024 10:11 AM EDT 01/12/2024 10:11 AM EDT Rosalio Amaral MD LAB BLOOD ORDERABLES [facility] [address] [place] [address] * (ABNORMAL) CBC (01/12/2024 10:11 AM EDT) WBC 8.49 4.00 - 10.80 K/uL 01/12/2024 10:20 AM EDT [facility] RBC 4.06 4.50 - 5.25 M/uL 01/12/2024 10:20 AM EDT [facility] HGB 12.8(L) 14.0 - 16.8 g/dL 01/12/2024 10:20 AM EDT [facility] HCT 38.5(L) 40.0 - 48.4 % 01/12/2024 10:20 AM EDT [facility] MCV 94.8 82.0 - 99.5 fL 01/12/2024 10:20 AM EDT [facility] MCH 31.5 27.0 - 34.0 pg 01/12/2024 10:20 AM EDT [facility] MCHC 33.2 32.0 - 36.0 g/dL 01/12/2024 10:20 AM T [facility] RDW 17.6 11.5 - 15.5 % 01/12/2024 10:20 AM T [facility] PLT 418(H) 140 - 400 K/uL 01/12/2024 10:20 AM EDT [facility] MPV 10.0 6.6 - 11.1 fL 01/12/2024 10:20 AM T [facility] Blood Venous blood specimen / Unknown Venipuncture / Unknown 01/12/2024 10:11 AM EDT 01/12/2024 10:11 AM EDT Rosalio Amaral MD LAB BLOOD ORDERABLES [facility] [address] [place] [address] * (ABNORMAL) COMPREHENSIVE METABOLIC PANEL (01/12/2024 10:11 AM EDT) BUN 21(H) 6 - 20 mg/dL 01/12/2024 10:38 AM T [facility] Creatinine 1.4(H) 0.6 - 1.2 mg/dL 01/12/2024 10:38 AM [facility] Estimated Glomerular Filtration Rate 59(L) >=60 mL/min 01/12/2024 10:38 AM T [facility] Comment:eGFR is calculated b ased on the CKD-EPI 2020 equation Sodium 138 135 - 146 mmol/L 01/12/2024 10:38 AM T [facility] Potassium 4.3 3.5 - 5.1 mmol/L 01/12/2024 10:38 AM T [facility] Chloride 101 98 - 107 mmol/L 01/12/2024 10:38 AM T [facility] CO2 29 22 - 32 mmol/L 01/12/2024 10:38 AM T [facility] Anion Gap 8 7 - 15 mmol/L 01/12/2024 10:38 AM T [facility] Glucose 118 70 - 120 mg/dL 01/12/2024 10:38 AM EDT [facility] 56 Albumin 3.8 3.8 - 5.0 g/dL 01/12/2024 10:38 AM EDT [facility] 56 AST 18 10 - 50 U/L 01/12/2024 10:38 AM EDT [facility] 56 Alkaline Phosphatase 127 35 - 130 U/L 01/12/2024 10:38 AM EDT [facility] 56 Bilirubin, Total 0.5 <=1.2 mg/dL 01/12/2024 10:38 AM EDT [facility] 56 Calcium 10.3(H) 8.4 - 10.2 mg/dL 01/12/2024 10:38 AM EDT [facility] 56 Protein 5.8(L) 6.0 - 8.3 g/dL 01/12/2024 10:38 AM EDT [place] [id number] ALT 13 10 - 50 U/L 01/12/2024 10:38 AM EDT [facility] 56 Blood Venous blood specimen / Unknown Venipuncture / Unknown 01/12/2024 10:11 AM EDT 01/12/2024 10:11 AM EDT Rosalio Amaral MD LAB BLOOD ORDERABLES [facility] [address] [place] [address] documented in this encounter Visit Diagnoses Diagnosis [...] and were consensually agreed upon. Care Teams Geochemist Relationship Specialty Start Date End Date Jaime Garcia MD [address] [place] [address] [place] [address] PCP - General Family Medicine 10/15/20 documented as of this encounter
--- OUTSIDE RECORDS SUMMARY | 2024-05-13 06:10 | External Medical Summary ---
Author Name Unknown Address Unknown Organization K01[place] [facility] [place] [address] [place] [address] Laboratory Report Ordering Provider Test Date Status MONIQUE PEREZ 01/12/2024 10:11:24 Final Observation Date Value Abnormality Reference (Units ) Status Uric Acid 01/12/2024 10:11:24 7.4 Above high normal 3. 4-7.0 (mg/dL) Final Performing Location [facility] [facility] [place] [address] [place] [id number]
--- OUTSIDE RECORDS SUMMARY | 2024-05-13 06:10 | External Medical Summary | Summary of Care ---
Author Name Unknown Organization [facility] Address [address] [place] [address] Phone [phone] Care Team Providers Care State Farm Agent Name Role Phone Jaime Garcia MD Primary Care Provide r Reason for Visit * Reason Comments Outpatient Testing Encounter Details Date Type Department Care Team (Late st Contact Info) Description 01/12/2024 10:10 AM EDT Laboratory Laboratory Scenery [facility] [address] [place] [phone] [place], Lab Scenery [address] [place] [address] Multiple myeloma in relapse (HCC); Multiple myeloma [...] mL 3 3 06/14/20 24 Active Pen [place] 32G X 4 MM Use as directed. 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 As needed.. 0 4 Active oxyCODONE HCl 5 MG Oral Tablet (Oxy IR)Indications:Mult iple myeloma in relapse ([facility]) [...] morning. 180 Capsule 1 4 Active Nystatin 612484 UNIT/ML Mouth/Throat SuspensionIndicatio ns:Multiple myeloma in relapse [...] 01/12/2024 11:15 AM EDT [facility] [address] [facility] [place] [place] [phone] [place], Chair 10 Hem Onc [facility] [address] [facility] [place] [address] Arrived 01/19/2024 3:00 PM EDT Office Visit Cardiology, [facility] [address] [place] [address] [facility] Gibbs [facility]NP [facility] [place] [address] 01/27/2024 9:00 AM EDT Laboratory Laboratory [facility] [place] [address] [facility] [place] [phone] [place], Lab [facility] 200 [facility] [place] [address] 01/27/2024 10:00 AM EDT Home Visit isinger at [facility] [address] [place] [address] Sulma Seth, BOBBY [address] [place] [address] 01/27/2024 10:00 AM EDT Hem[facility] [address] [facility] [place] [place] [phone] [place], Chair 11 Hem Onc Scen[address] [place] [address] 02/03/2024 8:20 AM EDT Anticoagulation Pharmacy, [address] [place] [address] [place] [address] 02/03/2024 8:30 AM EDT Office Visit Pharmacy, [address] [place] [address] [place] [address] 02/07/2024 9:00 AM EDT Nurse Only Ancillary [address] [place] [address] [place], Nurse [address] [place] [address] 02/15/2024 1:30 PM EDT Telemedicine [facility] [place] [address] [facility] [place] [address] Rosalio Amaral MD [address] [facility] [place] [address] 04/19/2024 9:30 AM EDT Office Visit Cardiology [address] [place] [address] Tim Ruiz PA-C [address] [place] [address] 10/30/2024 1:45 PM EST Office Visit Urology, [facility] [address] [place] [address] Devyn Paniagua MD 27 [facility] [address] [place] [phone] 01/01/2025 10:20 AM EDT Office Visit Otolaryngology [facility] [address] [place] [address] Haley Aguero PA-C [address] [place] [address] Pending Results Name Type Priority Associated Diagnoses Date /Time COMPREHENSIVE METABOLIC PANEL Lab STAT Multiple myeloma in relapse (HCC) 01/12/2024 10:11 AM EDT URIC ACID Lab STAT Multiple myeloma in relapse ([facility]) 01/12/2024 10:11 AM EDT LD Lab STAT Multiple myeloma in relapse ([facility]) 01/12/2024 10:11 AM EDT Health Maintenance Due Date Last [...] PPSV23 or PCV20) 05/22/2024 05/13/2020, 05/22/2019 GFR 06/30/2024 12/30/2023, 04/0 04/2024, 12/19/2023, Additional history exists Diabetic Eye Exam 07/11/2024 07/11/2023, , 07/05/2022, Additional history exists TSH 07/25/2024 07/25/2023, 03/12, 01/31/2023, Additional history exists Albumin/Creatinine Ratio 12/29/20242 024, 09/08/2023, 06/22/2023, Additional history exists CKD HGB USE SMARTSET 12941 12/29/202401/11, 01/12/2024, 12/30/2023, Additional history exists CKD PHOS USE SMARTSET 40013 12/29/202412/11, 11/14/2023, 10/28/2023, Additional history exists DTaP,Tdap,and Td Vaccines (2 [...] this encounter Medical Devices Implanted Type Area Bookmobile Librarian Device Identifier Shelf Expiration Date Model / Serial / Lot Port Power Mri W/8fr Cath - [id number] Implanted:Qty: 1 on 09/26/2020 by Simone Michelle MD at OR [facility] Right: Chest CR BARD : PERIPHERAL VASCULAR 10/12/2021 [id number] / / [id number] Description:right IJ Lens Intraoc 19.0 - [id number] - [id number] Implanted:Qty: 1 on 02/03/2021 by Chris Sexton MD at OR [facility] Right: Eye [employer] 09/11/2025 [id number] / [id number] / Lens Intraoc 19.0 - [id number] - [id number] Implanted:Qty: 1 on 02/24/2021 by Chris Sexton MD at OR [facility] Left: Eye [employer]OM[employer] 10/12/2025 [id number] / [id number] System Urolift - [id number] Implanted:Qty: 2 on 03/17/2023 by Devyn Paniagua MD at OR [facility] N/A: Urethra [employer] 11/18/2023 [id number] / / [id number] System Urolift - [id number] Implanted:Qty: 3 on 03/17/2023 by Devyn Paniagua MD at OR [facility] N/A: Urethra [employer] 11/03/2023 [id number] / / [id number] documented as of this encounter Procedures Procedure Name Priority Date/Time Associated Diagnosis Comments DIFFERENTIAL, AUTOMATED STAT 01/12/2024 10:11 AM EDT Multiple myeloma in relapse (HCC) CBC STAT 01/12/2024 10:11 AM EDT Multiple myeloma in relapse (HCC) CBC STAT 01/12/2024 10:11 AM EDT Multiple myeloma in relapse ([facility]) documented in this encounter Results * (ABNORMAL) DIFFERENTIAL, AUTOMATED (01/12/2024 10:11 AM EDT) WBC 8.49 4.00 - 10.80 K/uL 01/12/2024 10:20 AM EDT [facility] 56-02 Neutrophils % 80.1(H) 40.0 - 75.0 % 01/12/2024 10:20 AM EDT [facility] 56-02 Lymphocytes % 4.9(L) 18.0 - 42.0 % 01/12/2024 10:20 AM EDT [facility] [place] 56-02 Monocytes % 11.1(H) 1.0 - 11.0 % 01/12/2024 10:20 AM EDT [facility] [place] 56-02 Eosinophils % 3.4 0.0 - 6.0 % 01/12/2024 10:20 AM EDT [facility] 56-02 Basophils % 0.5 0.0 - 2.0 % 01/12/2024 10:20 AM EDT [facility] 56-02 Absolute Neutrophils 6.80 1.80 - 7.70 K/uL 01/12/2024 10:20 AM EDT [facility] Absolute Lymphocytes 0.42(L) 1.00 - 4.80 K/ul 01/12/2024 10:20 AM EDT [facility] Absolute Monocytes 0.94 0.00 - 1.10 K/uL 01/12/2024 10:20 AM EDT [facility] Absolute Eosinophils 0.29 0.00 - 0.70 K/uL 01/12/2024 10:20 AM EDT [facility] Absolute Basophils 0.04 0.00 - 0.20 K/uL 01/12/2024 10:20 AM EDT [facility] Blood Venous blood specimen / Unknown Venipuncture / Unknown 01/12/2024 10:11 AM EDT 01/12/2024 10:11 AM EDT Rosalio Amaral MD LAB BLOOD ORDERABLES [facility] [address] [place] [address] * (ABNORMAL) CBC (01/12/2024 10:11 AM EDT) WBC 8.49 4.00 - 10.80 K/uL 01/12/2024 10:20 AM T [facility] RBC 4.06 4.50 - 5.25 M/uL 01/12/2024 10:20 AM [facility] HGB 12.8(L) 14.0 - 16.8 g/dL 01/12/2024 10:20 AM EDT [facility] HCT 38.5(L) 40.0 - 48.4 % 01/12/2024 10:20 AM T [facility] MCV 94.8 82.0 - 99.5 fL 01/12/2024 10:20 AM EDT [facility] MCH 31.5 27.0 - 34.0 pg 01/12/2024 10:20 AM EDT [facility] MCHC 33.2 32.0 - 36.0 g/dL 01/12/2024 10:20 AM EDT [facility] RDW 17.6 11.5 - 15.5 % 01/12/2024 10:20 AM EDT [facility] PLT 418(H) 140 - 400 K/uL 01/12/2024 10:20 AM EDT [facility] MPV 10.0 6.6 - 11.1 fL 01/12/2024 10:20 AM EDT [facility] Blood Venous blood specimen / Unknown Venipuncture / Unknown 01/12/2024 10:11 AM EDT 01/12/2024 10:11 AM EDT Rosalio Amaral MD LAB BLOOD ORDERABLES [facility] [address] [place] [address] documented in this encounter Visit Diagnoses Diagnosis [...] and were consensually agreed upon. Care Teams State Farm Agent Relationship Specialty Start Date End Date Jaime Garcia MD [address] [place] [address] [place] [phone] PCP - General Family Medicine 10/15/20 documented as of this encounter
--- OUTSIDE RECORDS SUMMARY | 2024-05-13 06:10 | External Medical Summary ---
Author Name Unknown Address Unknown Organization K01:[facility] - [address] [place] [address] Laboratory Report Ordering Provider Test Date Status MONIQUE PEREZ 01/12/2024 10:11:24 Final Observation Date Value Abnormality Reference (Units ) Status LDH 01/12/2024 10:11:24 151 <=250 (U/L ) Final Performing Location [facility] - [address] [place] [address]
--- OUTSIDE RECORDS SUMMARY | 2024-05-13 06:10 | External Medical Summary | Summary of Care ---
Author Name Unknown Organization [facility] Address [address] [place] [address] Phone [phone] Care Team Providers Care Wind Tunnel Technician Name Role Phone Eloina Day MD Primary Care Provide r Reason for Visit * Reason Comments Medication Refill Encounter Details Date Type Department Care Team (Late st Contact Info) Description 12/31/2023 Refill Family Medicine [address] [phone] Micheal Tinsley MD [address] [place] [address] [place] [address] Type 2 diabetes mellitus with hemoglobin A1c goal of less than 7.0% ([facility]) Allergies Active Allergy Reactions Criticality Noted Date Comments Atorvastatin Muscle pain High 03/30/2019 Ezetimibe Muscle pain High 01/25/2020 documented as of this encounter (statuses as of 01/04/2024) Medications Medication Sig Dispensed Refills Start Date [...] than 7.0% ([facility]) Use as directed daily. Test once daily DxE11.9 100 Strip 5 1 Active LancetsIndications :Type 2 diabetes mellitus with hemoglobin A1c goal of less than 7.0% ([facility]) Test once daily DxE11.9. 100 Each 5 1 Active Acyclovir 400 MG Oral Tablet (Zovirax)Indicatio ns:Lambda light chain myeloma ([facility]) Take one tablet once daily [...] mL 3 3 06/14/20 24 Active Pen Dunbar 32G X 4 MM Use as directed. [...] the morning. 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 180 Tablet 1 4 Active Nystatin 844227 UNIT/ML Mouth/Throat SuspensionIndicati ons:Multiple myeloma in relapse (HCC) Swish and swallow 5 mL in the morning and 5 mL at noon and 5 mL in the evening and 5 mL before bedtime. 60 mL 1 4 Active DULoxetine HCl 20 MG Oral Capsule Delayed Release Particles (Cymbalta) Take 2 Capsules by mouth in the morning. 180 Capsule 1 3 12/31/19 24 Discontinu ed(Refill) metFORMIN HCl ER 500 MG Oral Tablet Extended Release 24 Hour (Glucophage XR)Indications:Typ e 2 diabetes mellitus with hemoglobin A1c goal of less than 7.0% (HCC) Take 2 Tablets by mouth in the morning. 180 Tablet 1 3 12/31/19 24 Discontinu ed(Refill) documented as of this encounter (statuses as of 01/04/2024) Active Problems Problem Noted Date Diagnosed Date [...] as of this encounter (statuses as of 01/04/2024) Resolved Problems Problem Noted Date Diagnosed Date [...] as of this encounter (statuses as of 01/04/2024) Immunizations Name Administration Dates Next Due COVID-19, [...] Telephone Encounter - Eloina Day MD - 01/04/2024 8:31 AM EDT Signed Prescriptions: Disp Refills metFORMIN HCl ER 500 MG Oral Tablet Extend*180 Ta*1 Sig: Take 2 Tablets by mouth in the morning. Authorizing Provider: ELOINA DAY * Telephone Encounter - Eloina Day MD - 01/04/2024 8:31 AM EDT Signed Prescriptions: Disp Refills metFORMIN HCl ER 500 MG Oral Tablet Extend*180 Ta*1 Sig: Take 2 Tablets by mouth in the morning. Authorizing Provider: ELOINA DAY * Telephone Encounter - Lula Mccallum, business manager [employer] - 01/03/2024 11:55 AM EDT Did you pend patient's preferred pharmacy and medication before forwarding?yes Pharmacy: [facility] Pending Prescriptions: Disp Refills metFORMIN HCl ER 500 MG Oral Tablet Exten*180 Ta*1 Sig: Take 2 Tablets by mouth in the morning. Last Visit: 12/06/2023 (in office), Visit date not found (telemedicine) Next Visit: Visit date not found If no future appointments scheduled, and last appointment is greater than a year ago, please schedule patient for a follow-up appointment Last date the medication was ordered: 07/11 Is this request for a controlled substance?No Urine Drug Screen:No results found. However, due to the size of the patient record, not all encounters were searched. Please check Results Review for a complete set of results. Patient Phone Numbers Labs: Lab Results Component Value Date/Time CREAT 1.4 (H) 12/30/2023 12:15 PM CREAT 1.26 12/19/2023 10:18 AM CREAT 1.4 (H) 10/03/2020 07:44 AM POTASSIUM 5.0 12/30/2023 12:15 PM POTASSIUM 4.6 12/19/2023 10:18 AM POTASSIUM 3.9 10/03/2020 07:44 AM TSH 2.22 07/25/2023 09:43 AM TSH 1.93 07/04/2020 07:47 AM LDLCALC 22 01/31/2023 08:42 AM LDLCALC 149 (H) 12/11/2019 09:47 AM LDLDIRECT 33 07/06/2023 08:48 AM LDLDIRECT 99 07/04/2020 07:47 AM ALT 8 (L) 12/30/2023 12:15 PM ALT 7 (L) 12/19/2023 10:18 AM ALT 32 10/03/2020 07:44 AM HGBA1C 9.3 (H) 07/06/2023 08:53 AM HGBA1C 7.8 (H) 07/04/2020 07:47 AM * Telephone Encounter - Santiago Miller [facility] - 01/02/2024 12:36 PM EDT Pending Prescriptions: Disp Refills metFORMIN HCl ER 500 MG Oral Tablet Extend*180 Ta*1 Sig: Take 2 Tablets by mouth in the morning. * Telephone Encounter - Santiago Miller [facility] - 01/02/2024 12:33 PM EDT Unable to authorize medication refills for pended medication(s) at this time. Part of the protocol criteria used for refill authorization was not satisfied. Patient A1c outside limits. Please approveif appropriate. Thank you, Phill Miller, [place] Clinical Pharmacist [facility]) 01/02/24 12:36 PM [phone] documented in this encounter Plan of Treatment Upcoming Encounters Date Type Department Care Team (Late st Contact Info) Description 01/09/2024 4:00 PM EDT Home Visit [place] [facility], [facility] [address] [place] [address] Sulma Seth, BOBBY [address] [place] [address] 01/11/2024 9:30 AM EDT Telemedicine Hematology [facility] Tyree UGARTE [address] [facility] [place] [phone] Rosalio Amaral MD [address] [facility] [place] [phone] 01/12/2024 10:10 AM EDT Laboratory Laboratory Carla Renae [place] [address] [place] [phone] [place], Lab Scenery [address] [place] [address] 01/12/2024 11:15 AM EDT Hem/Onc Treatment Hematology/Oncology Treatment, [place] [address] [place] [phone] [place], Chair 10 Hem Onc Sc[address] [place] [address] 01/19/2024 3:00 PM EDT Office Visit Cardiology, [facility] [address] [place] [address] Beth Gibbs CRNP [address] [place] [address] 01/27/2024 9:00 AM EDT Laboratory Laboratory Carla Renae [place] [address] [place] [phone] [place] Lab Scenery [address] [place] [address] 01/27/2024 10:00 AM EDT [facility] Visit [facility], [facility] [address] [place] [address] Sulma Seth, RN [address] [place] [address] 01/27/2024 10:00 AM EDT Hem/Onc Treatment Hematology/Oncology Treatment, [place] [address] [place] [phone] [place], Chair 11 Hem Onc Scenery [address] [facility] [address] 02/03/2024 8:20 AM EDT Anticoagulation Pharmacy, [address] [place] [address] [place] [address] 02/03/2024 8:30 AM EDT Office Visit Pharmacy, [address] [place] [address] [place] [address] 02/07/2024 9:00 AM EDT Nurse Only Ancillary [address] [place] [address] [place] Nurse [address] [place] [address] 02/15/2024 1:30 PM EDT Telemedicine [facility] Tyree UGARTE [address] [facility] [place] [address] Rosalio Amaral MD [address] [facility] [place] [address] 04/19/2024 9:30 AM EDT Office Visit Cardiology [address] [place] [address] Tim Ruiz PA-C [address] [place] [address] 10/30/2024 1:45 PM EST Office Visit Urology, [facility] [address] [place] [address] Devyn Paniagua MD [address] [place] [address] [place] [address] 01/01/2025 10:20 AM EDT Office Visit Otolaryngology [facility] [address] [place] [address] Haley Aguero PA-C [address] [place] [address] Health Maintenance Due Date Last Done Comments Cologuard 2015 Fecal Occult Blood Test 2015 Sigmoidoscopy 2015 Depression Screening 01/05/2022 01/05/2021 Diabetic Foot Exam 12/14/2022 12/14/2021, 0 10/15/2020, 06/25/2019 COVID-19 Vaccine ( season) 2023 10/06/2021, 06/24/2021, 06/23/2021 HbA1c 01/05/2024 07/06/2023, 0811/2022, 03/29/2023, Additional history exists Pneumococcal Vaccine: Pediatrics [...] Additional history exists CKD HGB USE SMARTSET 82100 12/29/202412/29, 12/30/2023, 11/14/2023, Additional history exists CKD PHOS USE SMARTSET 61433 12/29/202412/11, 11/14/2023, 10/28/2023, Additional history exists DTaP,Tdap,and [...] this encounter Medical Devices Implanted Type Area Pig Machine Crane Operator Device Identifier Shelf Expiration Date Model / Serial / Lot Port Power Mri W/8fr Cath - [id number] Implanted:Qty: 1 on 09/26/2020 by Simone Michelle MD at OR [facility] Right: Chest CR BARD : PERIPHERAL VASCULAR 10/12/2021 [id number] / / [id number] Description:right IJ Lens Intraoc 19.0 - [id number] - [id number] Implanted:Qty: 1 on 02/03/2021 by Chris Sexton MD at OR [facility] Right: Eye [employer] 09/11/2025 [id number] / [id number] / Lens Intraoc 19.0 - [id number] - [id number] Implanted:Qty: 1 on 02/24/2021 by Chris Sexton MD at OR [facility] Left: Eye [employer] LOMB 10/12/2025 [id number] / [id number] / [id number] System Urolift - [id number] Implanted:Qty: 2 on 03/17/2023 by Devyn Paniagua MD at OR [facility] N/A: Urethra [employer] 11/18/2023 [id number] / / [id number] System Urolift - [id number] Implanted:Qty: 3 on 03/17/2023 by Devyn Paniagua MD at OR [facility] N/A: Urethra [employer] 11/03/2023 [id number] / / [id number] documented as of this encounter Visit Diagnoses Diagnosis Type 2 diabetes mellitus with hemoglobin A1c goal of less than 7.0% (HCC) documented in this encounter Additional Health [...] and were consensually agreed upon. Care Teams Wind Tunnel Technician Relationship Specialty Start Date End Date Eloina Day MD [address] [place] [address] [place] [address] PCP - General Family Medicine 10/15/20 documented as of this encounter
--- OUTSIDE RECORDS SUMMARY | 2024-05-13 06:10 | External Medical Summary | Summary of Care ---
Author Name Unknown Organization [facility] Address [address] [place] [address] Phone [phone] Care Team Providers Care Lead Clinical Research Coordinator Name Role Phone Jaime Garcia MD Primary Care Provide r Encounter Details Date Type Department Care Team (Late st Contact Info) Description 01/11/2024 9:30 AM EDT Telemedicine H[facility]ology [facility] Tyree UGARTE [address] [facility] [place] [address] Rosalio Amaral MD [address] [facility] [place] [address] Multiple myeloma in relapse (HCC)* Allergies Active Allergy Reactions Criticality Noted Date Comments Atorvastatin Muscle pain High 03/30/2019 Ezetimibe Muscle pain High 01/25/2020 documented as of this encounter (statuses as of 01/11/2024) Medications Medication Sig Dispensed Refills Start Date [...] hemoglobin A1c goal of less than 7.0% ([facility]) Test once daily DxE11.9. 100 Each 03/02/20 Active Acyclovir 400 MG Oral Tablet (Zovirax)Indicati [...] Severe. 10 Tablet 0 03/17/20 23 Active Additional Information Patient not [...] mL 3 06/15/20 23 024 Active Pen Capron 32G X 4 MM Use as directed. [...] Oral Tablet (Coumadin)Indicat ions:Atrial fibrillation, unspecified type ([facility]),Anticoagula tion management encounter,detention current use of anticoagulant therapy,Paroxysma l atrial fibrillation ([facility]) Take up to one tablet by mouth daily as directed by anticoagulation clinic 90 Tablet 3 10/28/19 24 Active Dapsone 25 MG Oral TabletIndications :Multiple myeloma in relapse ([facility]) TAKE ONE TABLET BY MOUTH EVERY DAY 90 Tablet 1 10/28/19 24 025 Active Torsemide 10 MG Oral Tablet (Demadex)Indicati ons:takes extra tab for swelling, wt gain Take 1 Tablet by mouth in the morning. As needed.. 0 11/21/19 24 Active oxyCODONE HCl 5 MG Oral Tablet (Oxy IR)Indications:Mu ltiple myeloma in relapse ([facility]) Take 1 Tablet by mouth [...] 90 Tablet 3 12/23/19 24 025 Active metFORMIN HCl ER 500 MG Oral Tablet Extended Release 24 Hour (Glucophage XR)Indications:Ty pe 2 diabetes mellitus with hemoglobin A1c goal of less than 7.0% ([facility]) Take 2 Tablets by mouth in the morning. 180 Tablet 1 01/04/20 24 Active DULoxetine HCl 20 MG Oral Capsule Delayed Release Particles (Cymbalta) Take 2 Capsules by mouth in the morning. 180 Capsule 1 01/02/20 24 Active Nystatin 042075 UNIT/ML Mouth/Throat SuspensionIndicat ions:Multiple myeloma in relapse ([facility]) Swish and swallow 5 mL in the morning and 5 mL at noon and 5 mL in the evening and 5 mL before bedtime. 60 mL 1 01/02/20 24 Active Magnesium Chloride 64 MG Oral Tablet Delayed Release (Mag64)Indication s:Multiple myeloma in relapse (HCC) Take 1 Tablet by mouth in the morning and 1 Tablet before bedtime. 180 Tablet 3 01/11/20 24 Active Hizentra 4 GM/20ML Subcutaneous Solution (immune [...] 120 mL 12 09/16/19 23 024 Discontinued Advanced Probiotic 10 Oral Capsule 1 Capsule [...] as of this encounter (statuses as of 01/11/2024) Active Problems Problem Noted Date Diagnosed Date [...] as of this encounter (statuses as of 01/11/2024) Resolved Problems Problem Noted Date Diagnosed Date [...] as of this encounter (statuses as of 01/11/2024) Immunizations Name Administration Dates Next Due COVID-19, [...] Progress Notes * Rosalio Amaral MD - 01/11/2024 9:48 AM EDT CLINIC NOTES JERARDO WALTON MR #[id number] : 1970 This was a telephone visit Informed consent obtained 01/11/2024 PATIENT REFERRED BY: Jaime Garcia MD. Also [...] immunoglobulin replacement. He stayed up late playing [employer] on Tuesday nights. He had GI issues, [...] neuropathy. INTERIM: The patient was last reviewed 11/10/2023. he had been off therapy for a [...] not regular He has not appointment at [place] tomorrow for pre testing for cart T [...] Pain, Severe. (Patient not taking: Reported on 12/16/2023) 10 Tablet 0 Finasteride 5 MG Oral [...] PRIOR TO INJECTION 6 mL 3 Pen Capron 32G X 4 MM Use as directed. [...] EVERY DAYIN THE MORNING 90 Tablet 2 DexJalbum G7 Sensor Use as directed to check [...] Ondansetron 4 MG Oral Tablet Disintegrating (Zofran) (Patient not taking: Reported on 12/29/2023) Potassium Chloride ER 20 MEQ Oral Tablet Extended Release Take 1 Tablet by mouth in the morning. (Patient not taking: Reported on 12/16/2023) Advanced Probiotic 10 Oral Capsule 1 Capsule in the morning. (Patient not taking: Reported on 11/21/2023) NSS 0.9 % SOLN 100 mL with cefTRIAXone 2 GM SOLR 2 g Administer 2 g intravenously daily. Allopurinol 100 MG Oral Tablet (Zyloprim) Take 1 Tablet by mouth in the morning. (Patient not taking: Reported on 12/16/2023) 30 Tablet 4 Warfarin Sodium 2.5 MG [...] 1 Tablet before bedtime. 180 Tablet 3 Torsemide 10 MG Oral Tablet [...] in the morning. 180 Capsule 1 Nystatin 778122 UNIT/ML Mouth/Throat Suspension Swish and swallow 5 mL in the morning and 5 mL at noon and 5 mL in the evening and 5 mL before bedtime. 60 mL 1 No current facility-administered medications for this [...] post recent salmonella sepsis hospitalized at the [facility] Likely autonomic dysfunction, manifested by orthostatic hypotension, dysphagia, gastric emptying PLAN: For cart Continue chemo-will use Zofran for a week after Monthly returns for now 12 minutes of phone time; 30 minute visit This was a telephone visit. 13 minutes of medical discussion Rosalio Amaral MD documented in this encounter Plan of Treatment Upcoming Encounters Date Type Department Care Team (Late st Contact Info) Description 01/12/2024 10:10 AM EDT Laboratory Laboratory [facility] [place] [address] [place] [phone] [place] Lab [place] [address] [facility] [place] [address] 01/12/2024 11:15 AM EDT Hem/Onc Treatment Hematology/Oncology Treatment, [place] [address] [place] [phone] [place], Chair 10 Hem Onc [facility] [address] [place] [address] 01/19/2024 3:00 PM EDT Office Visit Cardiology, [facility] [address] [facility] [place] [address] Beth Gibbs CRNP [address] [facility] [place] [address] 01/27/2024 9:00 AM EDT Laboratory Laboratory [facility] [place] [address] [place] [phone] [place] Lab [facility] [address] George [facility] [place] [address] 01/27/2024 10:00 AM EDT Home Visit [place] at [place], [facility] [address] [facility] [place] [address] Sulma Seth, RN [address] [place] [address] 01/27/2024 10:00 AM EDT Hem/Onc Treatment Hematology/Oncology Treatment, [place] [address] [place] [phone] [place], Chair 11 Hem Onc Scen[address] [facility] [address] 02/03/2024 8:20 AM EDT Anticoagulation Pharmacy, [address] [place] [address] [place] [address] 02/03/2024 8:30 AM EDT Office Visit Pharmacy, [address] [place] [address] [place] [address] 02/07/2024 9:00 AM EDT Nurse Only Ancillary [address] [place] [address] [place], Nurse [address] [place] [address] 02/15/2024 1:30 PM EDT Telemedicine H[facility]ology [facility] Tyree UGARTE [address] [facility] [place] [address] Rosalio Amaral MD [address] [facility] [place] [address] 04/19/2024 9:30 AM EDT Office Visit Cardiology [address] [place] [address] Tim Ruiz PAPageC [address] [place] [address] 10/30/2024 1:45 PM EST Office Visit Urology, [facility] [address] [place] [address] Devyn Paniagua MD [address] [place] [address] [place] [address] 01/01/2025 10:20 AM EDT Office Visit Otolaryngology [facility] [address] [place] [address] Haley Aguero PA-C [facility] [place] [address] Health Maintenance Due Date Last Done Comments [...] PCV20) 05/22/2024 05/13/2020, 05/22/2019 GFR 06/30/2024 12/30/2023, 040 04/2024, 12/19/2023, Additional history exists Diabetic Eye Exam 07/11/2024 07/11/2023, , 07/05/2022, Additional history exists TSH 07/25/2024 07/25/2023, 03/12, 01/31/2023, Additional history exists Albumin/Creatinine Ratio 12/29/2024 024, 09/08/2023, 06/22/2023, Additional history exists CKD HGB USE SMARTSET 21596 12/29/202412/29, 12/30/2023, 11/14/2023, Additional history exists CKD PHOS USE SMARTSET 36121 12/29/202412/11, 11/14/2023, 10/28/2023, Additional history exists DTaP,Tdap,and [...] this encounter Medical Devices Implanted Type Area Diesel Mechanic Construction Device Identifier Shelf Expiration Date Model / Serial / Lot Port Power Mri W/8fr Cath - [id number] Implanted:Qty: 1 on 09/26/2020 by Simone Michelle MD at OR [facility] Right: Chest CR BARD : PERIPHERAL VASCULAR 10/12/2021 [id number] / / [id number] Description:right IJ Lens Intraoc 19.0 - [id number] - [id number] Implanted:Qty: 1 on 02/03/2021 by Chris Sexton MD at OR [facility] Right: Eye [employer] 09/11/2025 [id number] / [id number] / Lens Intraoc 19.0 - [id number] - [id number] Implanted:Qty: 1 on 02/24/2021 by Chris Sexton MD at OR [facility] Left: Eye [employer]OM[employer] 10/12/2025 [id number] / [id number] / [id number] System Urolift - [id number] Implanted:Qty: 2 on 03/17/2023 by Devyn Paniagua MD at OR [facility] N/A: Urethra [employer] 11/18/2023 [id number] / / [id number] System Urolift - [id number] Implanted:Qty: 3 on 03/17/2023 by Devyn Paniagua MD at OR [facility] N/A: Urethra [employer] 11/03/2023 [id number] / / [id number] documented as of this encounter Visit Diagnoses [...] were consensually agreed upon. Care Teams Lead Clinical Research Coordinator Relationship Specialty Start Date End Date Jaime Garcia MD [address] [place] [address] [place] [address] PCP - General Family Medicine 10/15/20 documented as of this encounter
--- OUTSIDE RECORDS SUMMARY | 2024-05-13 06:10 | External Medical Summary ---
Author Name Unknown Address Unknown Organization K[facility] [address] [place] [address] Laboratory Report Ordering Provider Test Date Status MONIQUE PEREZ 01/12/2024 10:11:24 Final Observation Date Value Abnormality Reference (Units ) Status WBC, Total 01/12/2024 10:11:24 8.49 4.00-10.8 0 (K/uL) Final RBC 01/12/2024 10:11:24 4.06 4.50-5.25 (M/uL) Final Hemoglobin 01/12/2024 10:11:24 12.8 Below low normal 14 .0-16.8 (g/dL) Final HCT 01/12/2024 10:11:24 38.5 Below low normal 40. 0-48.4 (%) Final MCV 01/12/2024 10:11:24 94.8 82.0-99.5 (fL) Final MCH 01/12/2024 10:11:24 31.5 27.0-34.0 (pg) Final MCHC 01/12/2024 10:11:24 33.2 32.0-36.0 (g/dL) Final RDW 01/12/2024 10:11:24 17.6 11.5-15.5 (%) Final Platelets 01/12/2024 10:11:24 418 Above high normal 14 0-400 (K/uL) Final MPV 01/12/2024 10:11:24 10.0 6.6-11.1 ( fL) Final Performing Location [facility] [address] [address]
--- OUTSIDE RECORDS SUMMARY | 2024-05-13 06:10 | External Medical Summary | Summary of Care ---
Author Name Unknown Organization [facility] Address [address] [place] [address] Phone [phone] Care Team Providers Care Geodetic Technician Name Role Phone Jaime Garcia MD Primary Care Provide r Reason for Visit * Reason Comments IV Therapy Hydration. Medication Administration Xgeva. * Episode Based Medications (Routine) - Authorized Specialty Diagnoses / Procedures Referred By Contac t Referred To Contact Diagnoses Lambda light chain myeloma (HCC) Multiple myeloma without remission (HCC) Procedures MS DENOSUMAB INJECTION Rosalio Amaral MD [address] [place] [address] Anc Hem/Onc Carla Renae DEPT CLOSED - 07/26/23 200 [facility] [place] [address] Referral ID Status Reason Start Date Expiration Date V isits Requested Visits Authorized [id number] Authorized 07/14/2023 05/16/2024 99 99 Encounter Details Date Type Department Care Team (Latest Contact Info) Description 01/12/2024 11:15 AM EDT Hem/Onc Treatment Hematology/Oncology Treatment, [place] [address] [place] [address] [place], Chair 10 Hem On[address] [place] [address] Lambda light chain myeloma (HCC)*; Multiple myeloma [...] 7.0% ([facility]) Use as directed daily. Test once daily DxE11.9 100 Strip 5 1 Active LancetsIndications: Type 2 diabetes mellitus with hemoglobin A1c goal of less than 7.0% (HCC) Test once daily DxE11.9. 100 Each 5 1 Active Acyclovir 400 MG Oral Tablet (Zovirax)Indication s:Lambda light chain myeloma ([facility]) Take one tablet once daily 180 Tablet [...] mL 3 3 06/14/20 24 Active Pen [place] 32G X 4 MM Use as [...] ns:Atrial fibrillation, unspecified type (HCC),Anticoagulati on management encounter,meterman current use of anticoagulant therapy,Paroxysmal atrial fibrillation [...] morning. 180 Capsule 1 4 Active Nystatin 089973 UNIT/ML Mouth/Throat SuspensionIndicatio ns:Multiple myeloma in relapse [...] thinks he is dehydrated and needs fluids. [place] texted Dr. Amaral, per Dr. Amaral via [...] Description 01/16/2024 12:00 PM EDT Laboratory Laboratory [facility] [place] [address] [place] [address] Park, Lab Scenery 200 [facility] [place] [address] 01/16/2024 1:00 PM EDT Hem/Onc Treatment Hematology/Oncology Treatment, [place] [address] [place] [phone] [place], Chair 6 Hem Onc Scenery [address] [place] [address] 01/19/2024 3:00 PM EDT Office Visit [facility], [facility] [place] [address] Beth Gibbs CRNP [address] [place] [address] 01/27/2024 9:00 AM EDT Laboratory Laboratory [facility] [place] [address] [place] [phone] [place], Lab Scenery [address] [place] [address] 01/27/2024 10:00 AM EDT [facility], [facility] [place] [address] Sulma Seth, BOBBY [address] [place] [address] 01/27/2024 10:00 AM EDT Hem/Onc Treatment Hematology/Oncology Treatment, [place] [address] [place] [phone] [place], Chair 11 Hem Onc Scenery [address] [place] [address] 02/03/2024 8:20 AM EDT Anticoagulation Pharmacy, [address] [place] [address] [place] [address] 02/03/2024 8:30 AM EDT Office Visit Pharmacy, [address] [place] [address] [place] [address] 02/07/2024 9:00 AM EDT Nurse Only Ancillary [address] [place] [address] [place] Nurse [address] [place] [address] 02/15/2024 1:30 PM EDT Telemedicine H[facility]ology [facility] Tyree UGARTE [address] [facility] [place] [address] Rosalio Amaral MD [address] [facility] [place] [address] 04/19/2024 9:30 AM EDT Office Visit Cardiology [address] [place] [address] Tim Ruiz PA-C [address] [place] [address] 10/30/2024 1:45 PM EST Office Visit Urology, [facility] [address] [place] [address] Devyn Paniagua MD 27 [facility] 270 [place] [address] 01/01/2025 10:20 AM EDT Office Visit [facility]ol[facility]ology [facility] [place] [address] Haley Aguero PA-C [address] [place] [address] Scheduled Orders Name Type Priority Associated Diagnoses Orde r Schedule PHOSPHORUS Lab Routine Lambda light chain myeloma (HCC) Multiple myeloma without remission (HCC) Expected: 01/12/2024 (Approximate), Expires: 07/10/2024 Health Maintenance Due Date Last Done Comments [...] Additional history exists CKD HGB USE SMARTSET 31875 01/11/202501/11, 01/12/2024, 12/30/2023, Additional history exists CKD PHOS USE SMARTSET 84714 01/11/2025 05/0 10/2023, 12/30/2023, 11/14/2023, Additional history [...] this encounter Medical Devices Implanted Type Area Gambreler Helper Device Identifier Shelf Expiration Date Model / Serial / Lot Port Power Mri W/8fr Cath - [id number] Implanted:Qty: 1 on 09/26/2020 by Simone Michelle MD at OR [facility] Right: Chest CR BARD : PERIPHERAL VASCULAR 10/12/2021 [id number] / / [id number] Description:right IJ Lens Intraoc 19.0 - [id number] - [id number] Implanted:Qty: 1 on 02/03/2021 by Chris Sexton MD at OR [facility] Right: Eye BAUSCH & LOMB 09/11/2025 [id number] / [id number] / Lens Intraoc 19.0 - [id number] - [id number] Implanted:Qty: 1 on 02/24/2021 by Chris Sexton MD at OR [facility] Left: Eye BAUSCH & LOMB 10/12/2025 [id number] / [id number] / [id number] System Urolift - [id number] Implanted:Qty: 2 on 03/17/2023 by Devyn Paniagua MD at OR [facility] N/A: Urethra [employer] 11/18/2023 [id number] / / [id number] System Urolift - [id number] Implanted:Qty: 3 on 03/17/2023 by Devyn Paniagua MD at OR [facility] N/A: Urethra [employer] 11/03/2023 [id number] / / [id number] documented as of this encounter Visit Diagnoses [...] MAR Action Action Date Dose Rate Site hEParin 100 UNIT/ML Lock Flush inj 500 Units 500 Units (5 mL), IV Lock, PRN Other, IV Flush, Starting on Patria 01/12/24 at 1202, Until Tue01/13/24 at 1201, For 24 hours, Do not flush if lock, PICC, or central line not in place; IV infusing or unable to flush. Given 01/12/2024 3:04 PM EDT 500 Units sodium chloride 0.9 % flush central line 10 mL 10 mL, IV Push, PRN Other, IV Flush, Starting on Patria 01/12/24 at 1202, Until Tue01/13/24 at 1201, For 24 hours, Do not flush if lock, PICC, or central line not in place; IV infusing or unable to flush. Given 01/12/2024 3:04 PM EDT 10 mL Inactive Administered Medications - up to 3 most recent administrations Medication Order MAR Action Action Date Dose Rate Site Denosumab (Xgeva) subcut inj 120 mg 120 mg, Subcutaneous, ONCE, On Patria 01/12/24 at 1315, For 1 dose Given 01/12/2024 12:09 PM EDT 120 mg Arm Right Upper isolyte 1,000 mL bolus infusion Intravenous, at 333.33 mL/hr Administer over 3 Hours, Plasma-LYTE 148, isolyte-S, and isolyte-S pH 7.4 are considered equivalent - including for MAR barcode scanning., ONCE, 1 dose, On Patria 01/12/24 at 1245 Start Infusion 01/12/2024 12:00 PM EDT 1,000 mL 333.33 mL/hr documented in this encounter Additional Health [...] and were consensually agreed upon. Care Teams Geodetic Technician Relationship Specialty Start Date End Date Jaime Garcia MD [address] [place] [address] [place] [address] PCP - General Family Medicine 10/15/20 documented as of this encounter
--- OUTSIDE RECORDS SUMMARY | 2024-05-13 06:10 | External Medical Summary | Summary of Care ---
Author Name Unknown Organization [facility] Address [address] [place] [address] Phone [phone] Care Team Providers Care Sampler And Test Preparer Name Role Phone Jaime Garcia MD [...] MD [facility] [place] [address] Anc Hem/Onc Carla Renae DEPT CLOSED - 07/26/23 [address] [place] [address] Referral ID Status Reason Start Date Expiration Date V isits Requested Visits Authorized [id number] Authorized 10/21/2023 10/21/2024 999 999 Encounter Details Date Type Department Care Team (Latest Contact Info) Description 11/14/2023 8:30 AM EST Hem/Onc Treatment Hematology/Oncology Treatment, [place] [address] [place] [address] [place], Chair 4 Hem Onc Scenery 200 [facility] [place] [address] Lambda light chain myeloma (HCC)*; [place] amyloidosis [...] bedtime. 1 Each 0 11/12/19 21 Active OnethredUPuch Ultra Blue In Vitro Strip (Glucose Blood)Indications :Type 2 diabetes mellitus with hemoglobin A1c goal of less than 7.0% ([facility]) Use as directed daily. Test once daily DxE11.9 100 Strip 03/02/20 Active LancetsIndication s:Type 2 diabetes mellitus with hemoglobin A1c goal of less than 7.0% ([facility]) Test once daily DxE11.9. 100 Each 03/02/20 [...] mL 3 06/15/20 23 024 Active Pen [place] 32G X 4 MM Use as directed. [...] of less than 7.0% ([facility]) Take 2 Tablets by mouth in the morning. 180 Tablet 1 07/11/20 23 024 Discontinued(Re fill) Torsemide 10 MG Oral Tablet (Demadex)Indicati ons:takes extra tab for swelling, wt gain Take 1 Tablet by mouth in the morning every other day. 100 Tablet 3 09/02/20 23 024 Discontinued Nystatin 772156 UNIT/ML Mouth/Throat SuspensionIndicat ions:Multiple myeloma in relapse [...] Tablet (Oxy IR)Indications:Mu ltiple myeloma in relapse ([facility]) Take 1 Tablet by mouth every 4 [...] Description 01/16/2024 12:00 PM EDT Laboratory Laboratory [facility] [address] [place] [phone] [place], Lab Scenery [address] Sc[address] [facility] [place] [address] 01/16/2024 1:00 PM EDT Hem/Onc Treatment Hematology/Oncology Treatment, [place] [facility] [phone] [place], Chair 6 Hem Onc Scenery [address] [place] [address] 01/19/2024 3:00 PM EDT Office Visit Cardiology, [facility] 132 [facility] [place] [address] Beth Gibbs CRNP 132 [facility] [place] [address] 01/27/2024 9:00 AM EDT Laboratory Laboratory [facility] [place] [address] [place] [phone] [place], Lab Scenery [address] [place] [address] [place] [address] 01/27/2024 10:00 AM EDT Home Visit [facility], [facility] 132 [facility] [place] [address] Sulma Seth RN 132 [facility] [place] [address] 01/27/2024 10:00 AM EDT Hem/Onc Treatment Hematology/Oncology Treatment, [place] 200 [facility] [phone] [place], Chair 11 Hem Onc Scenery [address] [place] [address] 02/03/2024 8:20 AM EDT Anticoagulation Pharmacy, [address] [place] [address] [place] [address] 02/03/2024 8:30 AM EDT Office Visit Pharmacy, [address] [place] [address] [place] [address] 02/07/2024 9:00 AM EDT Nurse Only Ancillary [address] [place] [address] [place], Nurse [address] [place] [address] 02/15/2024 1:30 PM EDT [facility]medicine [facility] [address] [place] [address] Rosalio Amaral MD [address] [place] [address] 03/16/2024 2:00 PM EDT Telemedicine [facility] [address] [place] [address] Thierno Patel PA-C [address] [place] [address] 04/16/2024 2:30 PM EDT Telemedicine [facility] [address] [place] [address] Rosalio Amaral MD [address] [place] [address] 04/19/2024 9:30 AM EDT Office Visit Cardiology [address] [place] [address] Tim Ruiz PA-C [address] [place] [address] 05/15/2024 2:00 PM EDT Telemedicine [facility] [address] [place] [address] Thierno Patel PA-C [address] [place] [address] 06/20/2024 3:00 PM EDT Telemedicine Hematology [facility] Tyree [place] [address] [place] [address] Rosalio Amaral MD [address] [place] [address] 10/30/2024 1:45 PM EST Office Visit Urology, [facility] [place] [address] Devyn Paniagua MD 27 [facility] 270 [place] [address] 01/01/2025 10:20 AM EDT Office Visit Otol[facility]ology [facility] [place] [address] Haley Aguero PA-C 132 [facility] [place] [address] Health Maintenance Due Date Last Done Comments [...] Additional history exists CKD HGB USE SMARTSET 81256 01/11/202501/11, 01/12/2024, 12/30/2023, Additional history exists CKD PHOS USE SMARTSET 87112 01/11/2025 05/0 10/2023, 12/30/2023, 11/14/2023, Additional history [...] this encounter Medical Devices Implanted Type Area Mid Level Practitioner Device Identifier Shelf Expiration Date Model / Serial / Lot Port Power Mri W/8fr Cath - [id number] Implanted:Qty: 1 on 09/26/2020 by Simone Michelle MD at OR [facility] Right: Chest CR BARD : PERIPHERAL VASCULAR 10/12/2021 [id number] / / [id number] Description:right IJ Lens Intraoc 19.0 - [id number] - [id number] Implanted:Qty: 1 on 02/03/2021 by Chris Sexton MD at OR [facility] Right: Eye BAUSCH & LOMB 09/11/2025 [id number] / [id number] / Lens Intraoc 19.0 - [id number] - [id number] Implanted:Qty: 1 on 02/24/2021 by Chris Sexton MD at OR [facility] Left: Eye BAUSCH & LOMB 10/12/2025 [id number] / [id number] / [id number] System Urolift - [id number] Implanted:Qty: 2 on 03/17/2023 by Devyn Paniagua MD at OR [facility] N/A: Urethra [employer] 11/18/2023 PC683-8 / / [id number] System Urolift - [id number] Implanted:Qty: 3 on 03/17/2023 by Devyn Paniagua MD at OR [facility] N/A: Urethra [employer] 11/03/2023 UT602-8 / / [id number] documented as of this encounter Visit Diagnoses [...] 500 mL/hr Daratumumab-hyaluronida se-fihj (Darzalex Faspro) 1800 mg-66576 units/ 15 ml subcut inj 15 mL, [...] and were consensually agreed upon. Care Teams Sampler And Test Preparer Relationship Specialty Start Date End Date Jaime Garcia MD [address] [place] [address] [place] [phone] PCP - General Family Medicine 10/15/20 documented as of this encounter
--- OUTSIDE RECORDS SUMMARY | 2024-05-13 06:10 | External Medical Summary | Summary of Care ---
Author Name Unknown Organization [facility] Address [address] [place] [address] Phone [phone] Care Team Providers Care Nnps Name Role Phone Jaime Garcia MD Primary Care Provide r Reason for Visit * Reason Onset Date Comments [facility]: Maintenance 01/09/2024 Encounter Details Date Type Department Care Team (Late st Contact Info) Description 01/09/2024 Telephone [facility], [facility] 132 [facility] [place] [address] [facility], Nurse [facility] 132 [facility] [place] [address] [facility]: Maintenance Allergies Active Allergy Reactions Criticality Noted Date Comments Atorvastatin Muscle pain High 03/30/2019 Ezetimibe Muscle pain High 01/25/2020 documented as of this encounter (statuses as of 01/09/2024) Medications Medication Sig Dispensed Refills Start Date [...] daily. Test once daily DxE11.9 100 Strip 1 Active LancetsIndications: Type 2 diabetes mellitus with hemoglobin A1c goal of less than 7.0% ([facility]) Test once daily DxE11.9. 100 Each 5 1 Active Acyclovir 400 MG Oral Tablet (Zovirax)Indication s:Lambda light chain myeloma ([facility]) Take one tablet once daily [...] (Decadron)Indicatio ns:Multiple myeloma not having achieved remission ([facility]) 5 tabs 2 times monthly [...] mL 3 3 06/14/20 24 Active Pen [place] 32G X 4 MM Use as directed. [...] 12/16/2023 Warfarin Sodium 2.5 MG Oral Tablet (Coumadin)Indicatio [...] morning. 180 Capsule 1 4 Active Nystatin 250282 UNIT/ML Mouth/Throat SuspensionIndicatio ns:Multiple myeloma in relapse (HCC) Swish and swallow 5 mL in the morning and 5 mL at noon and 5 mL in the evening and 5 mL before bedtime. 60 mL 1 4 Active documented as of this encounter (statuses as of 01/09/2024) Active Problems Problem Noted Date Diagnosed Date [...] as of this encounter (statuses as of 01/09/2024) Resolved Problems Problem Noted Date Diagnosed Date [...] as of this encounter (statuses as of 01/09/2024) Immunizations Name Administration Dates Next Due COVID-19, [...] Miscellaneous Notes * Telephone Encounter - Rosaline Prieto RN - 01/09/2024 9:02 AM EDT Call placed to the pt at request of Sulma COON to reschedule appt for today. Spoke to the pt. Pt states that he feels well and is having no acute issues at this time. agreeable to reschedule appt. Pt has appt on 01/27/24. Advised pt to call [facility] intake with any acute needs prior to 01/26 appt time and a sooner appt can be arranged. Pt verbalized understanding of such. documented in this encounter Plan of Treatment Upcoming Encounters Date Type Department Care Team (Late st Contact Info) Description 01/11/2024 9:30 AM EDT Telemedicine H[facility]ology [facility] Tyree UGARTE 1000 [address] [facility] [place] [address] Rosalio Amaral MD [address] [facility] [place] [address] 01/12/2024 10:10 AM EDT Laboratory Laboratory [facility] [address] [place] [phone] [place], Lab [facility] [address] [facility] [place] [address] 01/12/2024 11:15 AM EDT Hem/Onc Treatment Hematology/Oncology [address] [phone] [place], Chair 10 Hem Onc [facility] [address] [place] [address] 01/19/2024 3:00 PM EDT Office Visit Cardiology, [facility] [address] [place] [address] Beth Gibbs CRNP 132 [facility] [place] [address] 01/27/2024 9:00 AM EDT Laboratory Laboratory [facility] [place] [address] [place] [address] [place], [facility] 200 Carla George [facility] [place] [address] 01/27/2024 10:00 AM EDT Home Visit [facility] [address] [place] [address] Sulma Seth, BOBBY [facility] [place] [address] 01/27/2024 10:00 AM EDT Hem[facility] 200 [facility] [phone] [place], Chair 11 Hem Onc Scenery [address] [place] [address] 02/03/2024 8:20 AM EDT Anticoagulation Pharmacy, [address] [place] [address] [place] [address] 02/03/2024 8:30 AM EDT Office Visit Pharmacy, [address] [place] [address] [place] [address] 02/07/2024 9:00 AM EDT Nurse Only Ancillary [address] [place] [address] [place], Nurse [address] [place] [address] 02/15/2024 1:30 PM EDT Telemedicine Hematology [facility] Tyree UGARTE 1000 [address] [facility] [place] [address] Rosalio Amaral MD [address] [facility] [place] [address] 04/19/2024 9:30 AM EDT Office Visit Cardiology [address] [place] [address] Tim Ruiz PA-C [address] [place] [address] 10/30/2024 1:45 PM EST Office Visit Urology, [facility] [address] [place] [address] Devyn Paniagua MD 27 [facility] 270 [place] [address] 01/01/2025 10:20 AM EDT Office Visit Otolaryngology [facility] [address] [place] [address] Haley Aguero PA-C [address] [place] [address] Health Maintenance Due Date Last Done Comments [...] Additional history exists CKD HGB USE SMARTSET 24185 12/29/202412/29, 12/30/2023, 11/14/2023, Additional history exists CKD PHOS USE SMARTSET 38148 12/29/202412/11, 11/14/2023, 10/28/2023, Additional history exists DTaP,Tdap,and [...] this encounter Medical Devices Implanted Type Area Quality Eng Device Identifier Shelf Expiration Date Model / Serial / Lot Port Power Mri W/8fr Cath - [id number] Implanted:Qty: 1 on 09/26/2020 by Simone Michelle MD at OR [facility] Right: Chest CR BARD : PERIPHERAL VASCULAR 10/12/2021 [id number] / / [id number] Description:right IJ Lens Intraoc 19.0 - [id number] - [id number] Implanted:Qty: 1 on 02/03/2021 by Chris Sexton MD at OR [facility] Right: Eye BAUSCH & LOMB 09/11/2025 [id number] / [id number] / Lens Intraoc 19.0 - [id number] - [id number] Implanted:Qty: 1 on 02/24/2021 by Chris Sexton MD at OR [facility] Left: Eye BAUSCH & LOMB 10/12/2025 [id number] / [id number] System Urolift - [id number] Implanted:Qty: 2 on 03/17/2023 by Devyn Paniagua MD at OR [facility] N/A: Urethra [employer] 11/18/2023 QH002-7 / / [id number] System Urolift - [id number] Implanted:Qty: 3 on 03/17/2023 by Devyn Paniagua MD at OR [facility] N/A: Urethra [employer] 11/03/2023 UY264-9 / / [id number] documented as of this encounter Additional Health [...] and were consensually agreed upon. Care Teams Nnps Relationship Specialty Start Date End Date Jaime Garcia MD [address] [place] [address] [place] [phone] PCP - General Family Medicine 10/15/20 documented as of this encounter
--- OUTSIDE RECORDS SUMMARY | 2024-05-13 06:10 | External Medical Summary | Summary of Care ---
Author Name Unknown Organization [facility] Address [address] [place] [address] Phone [phone] Care Team Providers Care Marketing Content Manager Name Role Phone Jaime Garcia MD Primary Care Provide r Reason for Visit * Reason Comments Treatment * Episode Based Medications (Routine) - Authorized Specialty Diagnoses / Procedures Referred By Darin t Referred To Contact Diagnoses Lambda light chain myeloma (HCC) AL amyloidosis (HCC) Procedures AL DARATUMUMAB, HYALURONIDASE AL CYCLOPHOSPHAMIDE 100 MG INJ AL INJ, CYCLOPHOSPHAMIDE, NOS Rosalio Amaral MD [facility] [place][note 2] [place] [address] Anc Hem/Onc Carla Renae DEPT CLOSED - 07/26/23 [address] [place] [address] Referral ID Status Reason Start Date Expiration Date V isits Requested Visits Authorized [id number] Authorized 10/21/2023 10/21/2024 999 [id number] Encounter Details Date Type Department Care Team (Latest Contact Info) Description 11/14/2023 8:30 AM EST Hem/Onc Treatment Hematology/Oncology Treatment, [place] [address] [place] [address] Bat[place], Chair 4 Hem Onc Scenery 200 [facility] [place] [address] Lambda light chain myeloma (HCC)*; AL amyloidosis [...] bedtime. 1 Each 0 11/12/19 21 Active OneJambouch Ultra Blue In Vitro Strip (Glucose Blood)Indications :Type 2 diabetes mellitus with hemoglobin A1c goal of less than 7.0% ([facility]) Use as directed daily. Test once daily DxE11.9 100 Strip 03/02/20 Active LancetsIndication s:Type 2 diabetes mellitus with hemoglobin A1c goal of less than 7.0% ([facility]) Test once daily DxE11.9. 100 Each 03/02/20 21 Active Acyclovir 400 MG Oral Tablet (Zovirax)Indicati ons:Lambda light chain myeloma ([facility]) Take one tablet once daily [...] mL 3 06/15/20 23 024 Active Pen [place] 32G X 4 MM Use as directed. 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,oysterman current use of anticoagulant therapy,Paroxysma l atrial [...] Tablet 3 09/02/20 23 024 Discontinued Nystatin 991501 UNIT/ML Mouth/Throat SuspensionIndicat ions:Multiple myeloma in relapse [...] Tablet (Oxy IR)Indications:Mu ltiple myeloma in relapse ([facility]) Take [...] Description 01/16/2024 12:00 PM EDT Laboratory Laboratory [facility] [address] [place] [phone] [place], Lab Scenery [address] [facility] [place] [address] 01/16/2024 1:00 PM EDT Hem/Onc Treatment Hematology/[facility]cology Treatment, [place] 200 [facility] [phone] [place], Chair 6 Hem Onc Scenery [address] [place] [address] 01/19/2024 3:00 PM EDT Office Visit Cardiology, [facility] [place] [address] Beth Gibbs CRNP 132 [facility] [place] [address] 01/27/2024 9:00 AM EDT Laboratory Laboratory [facility] [place] [address] [place] [phone] [place], Lab Scenery [address] [address] 01/27/2024 10:00 AM EDT Home Visit [facility], [facility] [place] [address] Sulma Seth RN 132 [facility] [place] [address] 01/27/2024 10:00 AM EDT Hem/Onc Treatment Hematology/Oncology Treatment, [place] 200 [facility] [phone] [place], Chair 11 Hem Onc Scenery [address] [place] [address] 02/03/2024 8:20 AM EDT Anticoagulation Pharmacy, [address] [place] [address] [place] [address] 02/03/2024 8:30 AM EDT Office Visit Pharmacy, [address] [place] [address] [place] [address] 02/07/2024 9:00 AM EDT Nurse Only Ancillary [address] [place] [address] [place], Nurse [address] [place] [address] 02/15/2024 1:30 PM EDT [facility] [address] [place] [address] Rosalio Amaral MD [address] [place] [address] 03/16/2024 2:00 PM EDT Telemedicine [facility] [address] [place] [address] Thierno Patel PA-C [address] [place] [address] 04/16/2024 2:30 PM EDT Telemedicine [facility] [address] [place] [address] Rosalio Amaral MD [address] [place] [address] 04/19/2024 9:30 AM EDT Office Visit Cardiology [address] [place] [address] Tim Ruiz PA-C [address] [place] [address] 05/15/2024 2:00 PM EDT Telemedicine [facility] [address] [place] [address] Thierno Patel PA-C [address] [place] [address] 06/20/2024 3:00 PM EDT Telemedicine Hematology [facility] Tyree Jordan [address] [place] [address] Rosalio Amaral MD [address] [place] [address] 10/30/2024 1:45 PM EST Office Visit [facility], [facility] [place] [address] Devyn Paniagua MD 27 [facility] 270 [place] [address] 01/01/2025 10:20 AM EDT Office Visit Otolaryngology [facility] [place] [address] Haley Aguero PA-C 132 [facility] [place] [address] Health Maintenance Due Date Last Done Comments [...] Additional history exists CKD HGB USE SMARTSET 26201 01/11/202501/11, 01/12/2024, 12/30/2023, Additional history exists CKD PHOS USE SMARTSET 09744 01/11/2025 05/0 10/2023, 12/30/2023, 11/14/2023, Additional history [...] this encounter Medical Devices Implanted Type Area Patrol Supervisor Device Identifier Shelf Expiration Date Model / Serial / Lot Port Power Mri W/8fr Cath - [id number] Implanted:Qty: 1 on 09/26/2020 by Simone Michelle MD at OR [facility] Right: Chest CR BARD : PERIPHERAL VASCULAR 10/12/2021 [id number] / / [id number] Description:right IJ Lens Intraoc 19.0 - [id number] - [id number] Implanted:Qty: 1 on 02/03/2021 by Chris Sexton MD at OR [facility] Right: Eye BAUSCH & LOMB 09/11/2025 [id number] / [id number] / Lens Intraoc 19.0 - [id number] - [id number] Implanted:Qty: 1 on 02/24/2021 by Chris Sexton MD at OR [facility] Left: Eye BAUSCH & LOMB 10/12/2025 [id number] / [id number] System Urolift - [id number] Implanted:Qty: 2 on 03/17/2023 by Devyn Paniagua MD at OR [facility] N/A: Urethra [employer] 11/18/2023 OE239-4 / / [id number] System Urolift - [id number] Implanted:Qty: 3 on 03/17/2023 by Devyn Paniagua MD at OR [facility] N/A: Urethra [employer] 11/03/2023 YR390-6 / / [id number] documented as of this encounter Visit Diagnoses [...] 500 mL/hr Daratumumab-hyaluronida se-fihj (Darzalex Faspro) 1800 mg-62909 units/ 15 ml subcut inj 15 mL, [...] and were consensually agreed upon. Care Teams Marketing Content Manager Relationship Specialty Start Date End Date Jaime Garcia MD [address] [place] [address] [place] [phone] PCP - General Family Medicine 10/15/20 documented as of this encounter
--- OUTSIDE RECORDS SUMMARY | 2024-05-13 06:10 | External Medical Summary ---
Author Name Unknown Address Unknown Organization [id number]:[facility] [address] [place] [address] Laboratory Report Ordering Provider Test Date Status MONIQUE PEREZ 01/12/2024 11:04:01 Final Observation Date Value Abnormality Reference (Units ) Status Phosphate 01/12/2024 11:04:01 2.9 2.5-4.8 (m g/dL) Final Performing Location [facility] [place]la Rod[address] [address]
--- OUTSIDE RECORDS SUMMARY | 2024-05-13 06:11 | External Medical Summary ---
Author Name Unknown Address Unknown Organization [id number]:[facility] [place] - [address] [place] [address] Laboratory Report Ordering Provider Test Date Status ANAMONIQUE 12/30/2023 12:22:59 Final Normal: <30 mg/g creatinine< br/>High: 30-300 mg/g creatinine
Very High: >300 mg/g creatinine
Nephrotic: >2200 mg/g creatinine Observation Date Value Abnormality Reference (Units ) Status Albumin, Urine 12/30/2023 12:22:59 190.00 (mg/dL) Final Creatinine, Urine 12/30/2023 12:22:59 293 (mg/dL) Final Albumin/Creatinine [Mass Ratio] in Urine 12/30/2023 12:22:59 648 Above high normal <30 (mg/g Creat) Final Performing Location [facility]ORY [facility] [place] - [address] [place] [address]
--- OUTSIDE RECORDS SUMMARY | 2024-05-13 06:11 | External Medical Summary ---
Author Name Unknown Address Unknown Organization K01:[facility] - [address] [place] [address] Laboratory Report Ordering Provider Test Date Status COLETTE LEAL 12/30/2023 12:22:59 Final Observation Date Value Abnormality Reference (Units) Status Bacteria identified in Specimen by Culture 12/30/2023 12:22:59 No significant growth Final Test: Culture, Urine, Quanti tative
Specimen Source: Urine, Catheter
Specimen Type: Urine
Specimen Date: 12/30/2023 12:22 PM
Result Date: 12/31/2023 11:22 AM
Result Status: Final result
Resulting Lab: LAB[facility]
[address]
[place] [address]

CULTURE

No significant growth

null Performing Location LABORATORY [facility] - [address] [facility] [address]
--- OUTSIDE RECORDS SUMMARY | 2024-05-13 06:11 | External Medical Summary | Summary of Care ---
Author Name Unknown Organization [facility] Address [address] [place] [address] Phone [phone] Care Team Providers Care Hourly Manager Name Role Phone Jaime Garcia MD [...] AL INJ, CYCLOPHOSPHAMIDE, NOS Rosalio Amaral MD [address] [place], [place] [address] [address] Anc Hem/Onc Scenesukhdeep Renae DEPT CLOSED - 07/26/23 [address] [place] [address] Referral ID Status Reason Start Date Expiration Date V isits Requested Visits Authorized [id number] Authorized 10/21/2023 10/21/2024 999 999 Encounter Details Date Type Department Care Team (Latest Contact Info) Description 12/30/2023 1:45 PM EDT Hem/Onc Treatment Hematology/Oncolog y Treatment, [place] [address] [place] [address] [place], Chair 2 Hem Onc Scenery [address] [place] [address] Lambda light chain myeloma (HCC)*; AL amyloidosis (HCC); Encounter for antineoplastic chemotherapy Allergies Active Allergy Reactions Criticality Noted Date Comments Atorvastatin Muscle pain High 03/30/2019 Ezetimibe Muscle pain High 01/25/2020 documented as of this encounter (statuses as of 12/30/2023) Medications Medication Sig Dispensed Refills Start Date [...] morning. 180 Tablet 1 3 Active Pen Almond 32G X 4 MM Use as directed. [...] PM) 600 Tablet 3 3 Active Nystatin 613934 UNIT/ML Mouth/Throat SuspensionIndicatio ns:Multiple myeloma in relapse [...] Oral Tablet (Coumadin)Indicatio ns:Atrial fibrillation, unspecified type ([facility]),Anticoagulati on management encounter,[facility]PC current use of anticoagulant [...] 90 Tablet 3 4 12/23/19 25 Active documented as of this encounter (statuses as of 12/30/2023) Active Problems Problem Noted Date Diagnosed Date [...] as of this encounter (statuses as of 12/30/2023) Resolved Problems Problem Noted Date Diagnosed Date [...] as of this encounter (statuses as of 12/30/2023) Immunizations Name Administration Dates Next Due COVID-19, [...] Care Team (Late st Contact Info) Description 01/06/2024 2:30 PM EDT Home Visit [facility] 132 [facility] [place] [address] Sulma Seth, RN 132 [facility] [place] [address] 01/11/2024 9:00 AM EDT Telemedicine Hematology [facility] Tyree UGARTE [address] [facility] [place] [address] Rosalio Amaral MD [address] [facility] [place] [address] 01/13/2024 8:00 AM EDT Laboratory Laboratory Scenery [place] [address] [place], [place] [phone] [place], Lab Scenery [address] [place] [address] 01/13/2024 9:15 AM EDT Hem/Onc Treatment Hematology/Oncology Treatment, [place] [facility] [address] [place], Chair 5 Hem Onc Scenery 200 [facility] [place] [address] 01/19/2024 3:00 PM EDT Office Visit Cardiology, [facility] [address] [facility] [place] [address] Beth Gibbs CRNP [facility] [place] [address] 01/27/2024 9:00 AM EDT Laboratory Laboratory [facility] [place] 200 [facility] [place] [phone] [place], Lab [facility] 200 [facility] [place] [address] 01/27/2024 10:00 AM EDT Home Visit [facility] [place] [address] Sulma Seth RN 132 [facility] [place] [address] 01/27/2024 10:00 AM EDT Hem/Onc Treatment Hematology/Oncology Treatment, [place] 200 [facility] [place] [phone] [place], Chair 11 Hem Onc [facility] 200 [facility] [place] [address] 02/03/2024 8:20 AM EDT Anticoagulation Pharmacy, [address] [place] [address] [place] [address] 02/03/2024 8:30 AM EDT Office Visit Pharmacy, [address] [place] [address] [place] [address] 02/15/2024 1:30 PM EDT Telemedicine Hematology [facility] Tyree UGARTE [address] [facility] [place] [address] Rosalio Amaral MD [address] [facility] [place] [address] 04/19/2024 9:30 AM EDT Office Visit Cardiology [address] [place] [address] Tim Ruiz PA-C [address] [place] [address] 10/30/2024 1:45 PM EST Office Visit Urology, [facility] [address] [place] [address] Devyn Paniagua MD [facility] [place] [address] 01/01/2025 10:20 AM EDT Office Visit Otolaryngology [facility] [address] [place] [address] Haley Aguero PA-C [address] [place] [address] Health Maintenance Due Date Last Done Comments [...] Additional history exists CKD HGB USE SMARTSET 23634 12/29/202412/29, 12/30/2023, 11/14/2023, Additional history exists CKD PHOS USE SMARTSET 29064 12/29/202412/11, 11/14/2023, 10/28/2023, Additional history exists DTaP,Tdap,and [...] this encounter Medical Devices Implanted Type Area Oncology Coordinator Device Identifier Shelf Expiration Date Model / Serial / Lot Port Power Mri W/8fr Cath - [id number] Implanted:Qty: 1 on 09/26/2020 by Simone Michelle MD at OR [facility] Right: Chest CR BARD : PERIPHERAL VASCULAR 10/12/2021 [id number] / / [id number] Description:right IJ Lens Intraoc 19.0 - [id number] - [id number] Implanted:Qty: 1 on 02/03/2021 by Chris Sexton MD at OR [facility] Right: Eye BAUSCH & LOMB 09/11/2025 [id number] / [id number] / Lens Intraoc 19.0 - [id number] - [id number] Implanted:Qty: 1 on 02/24/2021 by Chris Sexton MD at OR [facility] Left: Eye BAUSCH & LOMB 10/12/2025 [id number] / [id number] System Urolift - [id number] Implanted:Qty: 2 on 03/17/2023 by Devyn Paniagua MD at OR [facility] N/A: Urethra [employer] 11/18/2023 GW711-1 / / [id number] System Urolift - [id number] Implanted:Qty: 3 on 03/17/2023 by Devyn Paniagua MD at OR [facility] N/A: Urethra [employer] 11/03/2023 NS422-3 / / [id number] documented as of this encounter Visit Diagnoses [...] ONCE PRN Other, Hypersensitivity Reaction, Starting on Tue12/30/23 at 1338, Until 12/31/23 at 1337, For 24 hours EPINEPHrine 1 MG/ML inj 0.3 mg 0.3 mg, Intramuscular, ONCE PRN Other, Hypersensitivity Reaction or Anaphylaxis, Starting on Tue12/30/23 at 1338, Until 12/31/23 at 1337, For 24 hours hEParin 100 UNIT/ML Lock Flush inj 500 Units 500 Units (5 mL), IV Lock, PRN Other, IV Flush, Starting on Tue12/30/23 at 1338, Until 12/31/23 at 1337, For 24 hours, Do not flush if lock, PICC, or central line not in place; IV infusing or unable to flush. Given 12/30/2023 3:14 PM EDT 500 Units Hydrocortisone Sod Suc (PF) (Solu-Cortef) inj 100 mg 100 mg, IV Push, ONCE PRN Other, Hypersensitivity Reaction, Starting on Tue12/30/23 at 1338, Until 12/31/23 at 1337, For 24 hours meperidine (Demerol) 25 MG/ML inj 25 mg 25 mg, IV Push, ONCE PRN Shivering, Starting on Tue12/30/23 at 1338, Until 12/31/23 at 1337, For 24 hours NSS infusion 500 mL, Intravenous, at 50 mL/hr, CONTINUOUS, Starting on Tue12/30/23 at 1445, Until 12/31/23 at 0044 Start Infusion 12/30/2023 1:45 PM EDT 500 mL 50 mL/hr sodium chloride 0.9 % flush central line 10 mL 10 mL, IV Push, PRN Other, IV Flush, Starting on Tue12/30/23 at 1338, Until 12/31/23 at 1337, For 24 hours, Do not flush if lock, PICC, or central line not in place; IV infusing or unable to flush. Given 12/30/2023 3:13 PM EDT 10 mL Inactive Administered Medications [...] 2:38 PM EDT 500 mg 500 mL/hr Daratumumab-hyaluronidas e-fihj (Darzalex Faspro) 1800 mg-28956 units/ 15 ml subcut inj 15 mL, [...] Given 12/30/2023 1:58 PM EDT 10 mg documented in this [...] and were consensually agreed upon. Care Teams Hourly Manager Relationship Specialty Start Date End Date Jaime Garcia MD [address] [place] [address] [place] [phone] PCP - General Family Medicine 10/15/20 documented as of this encounter
--- OUTSIDE RECORDS SUMMARY | 2024-05-13 06:11 | External Medical Summary | Summary of Care ---
Author Name Unknown Organization [facility] Address [address] [place] [address] Phone [phone] Care Team Providers Care Sales Project Manager Name Role Phone Jaime Garcia MD Primary Care Provide r Reason for Visit * Reason Onset Date Comments Appointment 01/03/2024 Encounter Details Date Type Department Care Team (Late st Contact Info) Description 01/03/2024 Telephone [facility] [place] [address] [place] [address] Services, Scheduling [address] [place] [address] Appointment (//) Allergies Active Allergy Reactions Criticality Noted Date Comments Atorvastatin Muscle pain High 03/30/2019 Ezetimibe Muscle pain High 01/25/2020 documented as of this encounter (statuses as of 01/03/2024) Medications Medication Sig Dispensed Refills Start Date [...] morning. 180 Tablet 1 3 Active Pen [place] 32G X 4 MM Use as directed. [...] ns:Atrial fibrillation, unspecified type (HCC),Anticoagulati on management encounter,[facility] current use of anticoagulant therapy,Paroxysmal [...] 90 Tablet 3 4 12/23/19 25 Active DULoxetine HCl 20 MG Oral Capsule Delayed Release Particles (Cymbalta) Take 2 Capsules by mouth in the morning. 180 Capsule 1 4 Active Nystatin 761808 UNIT/ML Mouth/Throat SuspensionIndicatio ns:Multiple myeloma in relapse (HCC) Swish and swallow 5 mL in the morning and 5 mL at noon and 5 mL in the evening and 5 mL before bedtime. 60 mL 1 4 Active documented as of this encounter (statuses as of 01/03/2024) Active Problems Problem Noted Date Diagnosed Date [...] as of this encounter (statuses as of 01/03/2024) Resolved Problems Problem Noted Date Diagnosed Date [...] as of this encounter (statuses as of 01/03/2024) Immunizations Name Administration Dates Next Due COVID-19, [...] Telephone Encounter - Beba Ramirez OSA - 01/03/2024 2:18 PM EDT Request to schedule new appt since 01/05 needed cx I found Mon the 29th and called and Jerardo was agreeable documented in this encounter Plan of Treatment Upcoming Encounters Date Type Department Care Team (Late st Contact Info) Description 01/09/2024 4:00 PM EDT Home Visit [facility], [facility] 132 [place] [address] Sulma Seth, BOBBY [address] [place] [address] 01/11/2024 9:30 AM EDT Telemedicine Hematology Oncology [facility] Tyree UGARTE [facility] E [facility] [place] [address] Rosalio Amaral MD 1000 [address] [facility] [place] [address] 01/12/2024 10:10 AM EDT Laboratory Laboratory [facility] [address] [place] [phone] [place], Lab Scenery [address] [facility] [place] [address] 01/12/2024 11:15 AM EDT Hem[facility] [phone] [place], Chair 10 Hem Onc [facility] [place] [facility] [address] [place] [address] 01/19/2024 3:00 PM EDT Office Visit Cardiology, [facility] 132 [facility] [place] [address] Beth Gibbs CRNP 132 [facility] [place] [address] 01/27/2024 9:00 AM EDT Laboratory Laboratory [facility] [place] [address] [place] [phone] [place], Lab [facility] [place] [facility] 200 Carla George [facility] [place] [address] 01/27/2024 10:00 AM EDT [facility] [address] [place] [address] Sulma Seth, BOBBY [address] [place] [address] 01/27/2024 10:00 AM EDT Hem/Onc Treatment Hematology/Oncology Treatment, [place] [address] [facility] [phone] [place], Chair 11 Hem Onc Scenery [address] [place] [address] 02/03/2024 8:20 AM EDT Anticoagulation Pharmacy, [address] [place] [address] [place] [address] 02/03/2024 8:30 AM EDT Office Visit Pharmacy, [address] [place] [address] [place] [address] 02/07/2024 9:00 AM EDT Nurse Only Ancillary [address] [place] [address] [place], Nurse [address] [place] [address] 02/15/2024 1:30 PM EDT Telemedicine Hematology [facility] Tyree UGARTE 1000 [address] [facility] [place] [phone] Rosalio Amaral MD 1000 [address] [facility] [place] [address] 04/19/2024 9:30 AM EDT Office Visit Cardiology [address] [place] [address] Tim Ruiz PA-C [address] [place] [address] 10/30/2024 1:45 PM EST Office Visit Urology, [facility] [address] [place] [address] Devyn Paniagua MD 27 [facility] 270 [place] [address] 01/01/2025 10:20 AM EDT Office Visit Otolaryngology [facility] [address] [place] [address] Haley Aguero PA-C [address] [place] [address] Health Maintenance Due Date Last Done Comments [...] Additional history exists CKD HGB USE SMARTSET 65[address] 12/29/202412/29, 12/30/2023, 11/14/2023, Additional history exists CKD PHOS USE SMARTSET 02686 12/29/202412/11, 11/14/2023, 10/28/2023, Additional history exists DTaP,Tdap,and [...] encounter Medical Devices Implanted Type Area Nurse Esthetician Device Identifier Shelf Expiration Date Model / Serial / Lot Port Power Mri W/8fr Cath - [id number] Implanted:Qty: 1 on 09/26/2020 by Simone Michelle MD at OR [facility] Right: Chest CR BARD : PERIPHERAL VASCULAR 10/12/2021 [id number] / / [id number] Description:right IJ Lens Intraoc 19.0 - [id number] - [id number] Implanted:Qty: 1 on 02/03/2021 by Chris Sexton MD at OR [facility] Right: Eye BAUSCH & LOMB 09/11/2025 [id number] / [id number] / Lens Intraoc 19.0 - [id number] - [id number] Implanted:Qty: 1 on 02/24/2021 by Chris Sexton MD at OR [facility] Left: Eye BAUSCH & LOMB 10/12/2025 [id number] / [id number] System Urolift - [id number] Implanted:Qty: 2 on 03/17/2023 by Devyn Paniagua MD at OR [facility] N/A: Urethra [employer] 11/18/2023 WQ087-7 / / [id number] System Urolift - [id number] Implanted:Qty: 3 on 03/17/2023 by Devyn Paniagua MD at OR [facility] N/A: Urethra [employer] 11/03/2023 ON844-1 / / [id number] documented as of this encounter Additional Health [...] were consensually agreed upon. Care Teams Sales Project Manager Relationship Specialty Start Date End Date Jaime Garcia MD [address] [place] [address] [place] [phone] PCP - General Family Medicine 10/15/20 documented as of this encounter
--- OUTSIDE RECORDS SUMMARY | 2024-05-13 06:11 | External Medical Summary | Summary of Care ---
Author Name Unknown Organization [facility] Address [address] [place] [address] Phone [phone] Care Team Providers Care Tower Excavator Operator Name Role Phone Jaime Garcia MD Primary Care Provide r Reason for Visit * Reason Onset Date Comments Medication Refill 12/31/2023 Encounter Details Date Type Department Care Team (Late st Contact Info) Description 12/31/2023 Refill [facility] Tyree UGARTE [address] [facility] [place] [address] Ana Amaya MD [address] [facility] [place] [address] Multiple myeloma in relapse (HCC) Allergies Active Allergy Reactions Criticality Noted Date Comments Atorvastatin Muscle pain High 03/30/2019 Ezetimibe Muscle pain High 01/25/2020 documented as of this encounter (statuses as of 01/02/2024) Medications Medication Sig Dispensed Refills Start Date [...] Oral Tablet (Zovirax)Indicatio ns:Lambda light chain myeloma ([facility]) Take one tablet once daily 180 [...] (Decadron)Indicati ons:Multiple myeloma not having achieved remission ([facility]) 5 tabs 2 times monthly 10 [...] morning. 180 Tablet 1 3 Active [place] 32G X 4 MM Use as directed. [...] 90 Tablet 3 4 12/23/19 25 Active Nystatin 416613 UNIT/ML Mouth/Throat SuspensionIndicati ons:Multiple myeloma in relapse (HCC) Swish and swallow 5 mL in the morning and 5 mL at noon and 5 mL in the evening and 5 mL before bedtime. 60 mL 1 4 Active Nystatin 366498 UNIT/ML Mouth/Throat SuspensionIndicati ons:Multiple myeloma in relapse (HCC) Swish and swallow 5 mL in the morning and 5 mL at noon and 5 mL in the evening and 5 mL before bedtime. 60 mL 1 3 12/31/19 24 Discontinu ed(Refill) documented as of this encounter (statuses as of 01/02/2024) Active Problems Problem Noted Date Diagnosed Date [...] as of this encounter (statuses as of 01/02/2024) Resolved Problems Problem Noted Date Diagnosed Date [...] as of this encounter (statuses as of 01/02/2024) Immunizations Name Administration Dates Next Due COVID-19, [...] Telephone Encounter - Ana Amaya MD - 01/02/2024 8:53 AM EDTSigned Prescriptions: Disp Refills Nystatin 230227 UNIT/ML Mouth/Throat Suspe*60 mL 1 Sig: Swish and swallow 5 mL in the morning and 5 mL at noon and 5 mL in the evening and 5 mL before bedtime. Authorizing Provider: ANA AMAYA * Telephone Encounter - Nickie Vincent OSA - 01/02/2024 8:15 AM EDTPending Prescriptions: Disp Refills Nystatin 927303 UNIT/ML Mouth/Throat Suspe*60 mL 1 Sig: Swish and swallow 5 mL in the morning and 5 mL at noon and 5 mL in the evening and 5 mL before bedtime.---- documented in this encounter Plan of Treatment Upcoming Encounters Date Type Department Care Team (Late st Contact Info) Description 01/06/2024 2:30 PM EDT Home Visit [facility] 132 [facility] [place] [address] Sulma Seth, BOBBY 132 [facility] [place] [address] 01/11/2024 9:30 AM EDT Telemedicine H[facility]ology [facility] B[facility]ree [address] [facility] [place] [address] Ana Amaya MD [address] [facility] [place] [address] 01/13/2024 8:00 AM EDT Laboratory Laboratory [facility] [place] [address] [place] [phone] Nate Renae [facility] [address] [place] [address] 01/13/2024 9:15 AM EDT Hem/Onc Treatment Hematology/Oncology Treatment, [place] [address] [place] [phone] [place], Chair 5 Hem Onc Scenery [address] [place] [address] 01/19/2024 3:00 PM EDT Office Visit Cardiology, [facility] [place] [address] Beth Gibbs CRNP 132 [facility] [place] [address] 01/27/2024 9:00 AM EDT Laboratory Laboratory [facility] [place] [address] [place] [phone] [place], Lab Scenery 200 [facility] [place] [address] 01/27/2024 10:00 AM EDT Home Visit [facility] 132 [facility] [place] [address] Sulma Seth RN 132 [facility] [place] [address] 01/27/2024 10:00 AM EDT Hem/Onc Treatment Hematology/Oncology Treatment, [place] 200 [facility] [place] [phone] [place], Chair 11 Hem Onc Scenery 200 [facility] [place] [address] 02/03/2024 8:20 AM EDT Anticoagulation Pharmacy, [address] [place] [address] [place] [address] 02/03/2024 8:30 AM EDT Office Visit Pharmacy, [address] [place] [address] [place] [address] 02/15/2024 1:30 PM EDT Telemedicine [facility] Tyree UGARTE [address] [facility] [place] [address] Ana Amaay MD [address] [facility] [place] [address] 04/19/2024 9:30 AM EDT Office Visit Cardiology [address] [place] [address] Tim Ruiz PAKylie [address] [place] [address] 10/30/2024 1:45 PM EST Office Visit Urology, [facility] [address] [place] [address] Devyn Paniagua MD [address] [place] [address] [place] [address] 01/01/2025 10:20 AM EDT Office Visit Otolaryngology [facility] [address] [place] [address] Haley Aguero PA-C [address] [place] [address] Health Maintenance Due Date Last Done Comments [...] PCV20) 05/22/2024 05/13/2020, 05/22/2019 GFR 06/30/2024 12/30/2023, 0404/2024, 12/19/2023, Additional history exists Diabetic Eye Exam 07/11/2024 07/11/2023, , 07/05/2022, Additional history exists TSH 07/25/2024 07/25/2023, 03/12, 01/31/2023, Additional history exists Albumin/Creatinine Ratio 12/29/2024 024, 09/08/2023, 06/22/2023, Additional history exists CKD HGB USE SMARTSET 90571 12/29/202412/29, 12/30/2023, 11/14/2023, Additional history exists CKD PHOS USE SMARTSET 98316 12/29/202412/11, 11/14/2023, 10/28/2023, Additional history exists DTaP,Tdap,and [...] this encounter Medical Devices Implanted Type Area Materials Development Engineer Device Identifier Shelf Expiration Date Model / Serial / Lot Port Power Mri W/8fr Cath - [id number] Implanted:Qty: 1 on 09/26/2020 by Simone Michelle MD at OR [facility] Right: Chest CR BARD : PERIPHERAL VASCULAR 10/12/2021 [id number] / / [id number] Description:right IJ Lens Intraoc 19.0 - [id number] - [id number] Implanted:Qty: 1 on 02/03/2021 by Chris Sexton MD at OR [facility] Right: Eye BAUSCH [employer] LOMB 09/11/2025 [id number] / [id number] / Lens Intraoc 19.0 - [id number] - [id number] Implanted:Qty: 1 on 02/24/2021 by Chris Sexton MD at OR [facility] Left: Eye BAUSCH & LOMB 10/12/2025 [id number] / [id number] / [id number] System Urolift - [id number] Implanted:Qty: 2 on 03/17/2023 by Devyn Paniagua MD at OR [facility] N/A: Urethra [employer] 11/18/2023 VI710-0 / / [id number] System Urolift - [id number] Implanted:Qty: 3 on 03/17/2023 by Devyn Paniagua MD at OR [facility] N/A: Urethra [employer] 11/03/2023 TA461-3 / / [id number] documented as of this encounter Visit Diagnoses [...] and were consensually agreed upon. Care Teams Tower Excavator Operator Relationship Specialty Start Date End Date Jaime Garcia MD [address] [place] [address] [place] [address] PCP - General Family Medicine 10/15/20 documented as of this encounter
--- OUTSIDE RECORDS SUMMARY | 2024-05-13 06:11 | External Medical Summary | Summary of Care ---
Author Name Unknown Organization [facility] Address [address] [place] [address] Phone [phone] Care Team Providers Care Drafting Engineer Name Role Phone Jaime Garcia MD Primary Care Provide r Encounter Details Date Type Department Care Team (Late st Contact Info) Description 12/29/2023 Telephone Family Medicine [address] [place] [phone] Jaime Garcia MD [address] [place] [address] [place] [address] Allergies Active Allergy Reactions Criticality Noted Date [...] morning. 180 Tablet 1 3 Active Pen [place] 32G X 4 MM [...] Capsule 1 3 12/31/19 24 Discontinu ed(Refill) Nystatin 362932 UNIT/ML Mouth/Throat SuspensionIndicati ons:Multiple myeloma in relapse [...] Miscellaneous Notes * Telephone Encounter - Mirna Fang OSA - 01/02/2024 12:44 PM EDT Nurse visit scheduled, pt aware. * Telephone Encounter - aJime Garcia MD - 12/29/2023 9:25 AM EDT Please add pt to the nurse visit on 02/07/24 for the respiratory panel check * Telephone Encounter - Jaime Garcia MD - 12/29/2023 9:25 AM EDT ----- Message from Anna Daniel RN sent at 12/29/2023 8:45 AM EDT ----- Regarding: RE: Can you set up appt for patient to [facility] [place] for a RESPiratory PCR swab on 02/07/2024 Hi, it is the who respiratory PCR swab I placed the order already . I just wanted to make sure it was ok for the pt to come there for it. So ty for helping with that . I will make pt aware that he can go to your office for it on 02/07/2024. Thanks again Anna ----- Message ----- From: Jaime Garcia MD Sent: 12/28/2023 12:41 PM EDT To: Anna Daniel RN Subject: RE: Can you set up appt for patient to [facility] # Alfonzo Castillo, Yes we can help pt with the respiratory panel. Would your team like the whole respiratory panel or RSV/COVID/Flu swab? ----- Message ----- From: Anna Daniel RN Sent: 12/28/2023 11:46 AM EDT To: Jaime Garcia MD; # Subject: Can you set up appt for patient to [facility] in f# Hi, Would it be possible to assist in allowing pt to get a respiratory PCR swab in your office on 02/07/2024.Pt is going to [facility] for a CART and needs it completed on that day for cart on 02/11. I placed the order already too . Pt said he lives closer to your office then ours. Please let me know if okto do there. Calderon Castillo documented in this encounter Plan of Treatment Upcoming Encounters Date Type Department Care Team (Late st Contact Info) Description 01/06/2024 2:30 PM EDT Home Visit [facility] 132 [place] [address] Sulma Seth, BOBBY 132 [place] [address] 01/11/2024 9:30 AM EDT Telemedicine [facility] Tyree UGARTE [address] [place] [address] Rosalio Amaral MD [address] [place] [address] 01/13/2024 8:00 AM EDT Laboratory Laboratory [facility] [address] [place] [phone] [place], Lab Scenery [address] [place] [address] 01/13/2024 9:15 AM EDT Hem/Onc Treatment Hematology/Oncology Treatment, [place] [address] [place], [place] [phone] [place], Chair 5 Hem Onc Scenery [address] [place] [address] 01/19/2024 3:00 PM EDT Office Visit Cardiology, [facility] [address] [place] [address] Beth Gibbs CRNP [address] [place] [address] 01/27/2024 9:00 AM EDT Laboratory Laboratory [facility] [place] [address] [place] [phone] [place], Lab [facility] 200 [address]la [address] [place] [address] 01/27/2024 10:00 AM EDT Home Visit [facility] [place], [facility] [address] [place] [address] Sulma Seth, BOBBY 132 [facility] [place] [address] 01/27/2024 10:00 AM EDT Hem/Onc Treatment Hematology/Oncology Treatment, [place] [address] [place] [phone] Bat[place], Chair 11 Hem Onc Scenery [address] [place] [address] 02/03/2024 8:20 AM EDT Anticoagulation Pharmacy, [address] [place] [address] [place] [address] 02/03/2024 8:30 AM EDT Office Visit Pharmacy, [address] [place] [address] [place] [address] 02/07/2024 9:00 AM EDT Nurse Only Ancillary [address] [place] [address] [place], Nurse [address] [place] [address] 02/15/2024 1:30 PM EDT Telemedicine [facility] Tyree UGARTE [address] [facility] [place] [address] Rosalio Amaral MD [address] [facility] [place] [address] 04/19/2024 9:30 AM EDT Office Visit Cardiology [address] [place] [address] Tim Ruiz PA-C [address] [place] [address] 10/30/2024 1:45 PM EST Office Visit Urology, [facility] [address] [place] [address] Devyn Paniagua MD [address] [place] [address] [place] [address] 01/01/2025 10:20 AM EDT Office Visit Otolaryngology [facility] [address] [place] [address] Haley Aguero PA-C [address] [place] [address] Health Maintenance Due Date Last Done Comments [...] 03/12, 01/31/2023, Additional history exists Albumin/Creatinine Ratio 12/29/202412/29/2 024, 09/08/2023, 06/22/2023, Additional history exists CKD HGB USE SMARTSET 53593 12/29/202412/29, 12/30/2023, 11/14/2023, Additional history exists CKD PHOS USE SMARTSET 76217 12/29/202412/11, 11/14/2023, 10/28/2023, Additional history exists DTaP,Tdap,and [...] this encounter Medical Devices Implanted Type Area Booking Police Officer Device Identifier Shelf Expiration Date Model / Serial / Lot Port Power Mri W/8fr Cath - [id number] Implanted:Qty: 1 on 09/26/2020 by Simone Michelle MD at OR [facility] Right: Chest CR BARD : PERIPHERAL VASCULAR 10/12/2021 [id number] / / [id number] Description:right IJ Lens Intraoc 19.0 - [id number] - [id number] Implanted:Qty: 1 on 02/03/2021 by Chris Sexton MD at OR [facility] Right: Eye BAUSCH [employer] LOMB 09/11/2025 [id number] / [id number] / Lens Intraoc 19.0 - [id number] - [id number] Implanted:Qty: 1 on 02/24/2021 by Chris Sexton MD at OR [facility] Left: Eye BAUSCH & LOMB 10/12/2025 [id number] / [id number] System Urolift - [id number] Implanted:Qty: 2 on 03/17/2023 by Devyn Paniagua MD at OR [facility] N/A: Urethra [employer] 11/18/2023 LO070-1 / / [id number] System Urolift - [id number] Implanted:Qty: 3 on 03/17/2023 by Devyn Paniagua MD at OR [facility] N/A: Urethra [employer] 11/03/2023 HX935-5 / / [id number] documented as of this encounter Additional Health [...] and were consensually agreed upon. Care Teams Drafting Engineer Relationship Specialty Start Date End Date Jaime Garcia MD [address] [place] [address] [place] [address] PCP - General Family Medicine 10/15/20 documented as of this encounter
--- OUTSIDE RECORDS SUMMARY | 2024-05-13 06:11 | External Medical Summary | Summary of Care ---
Author Name Unknown Organization [facility] Address [address] [place] [address] Phone [phone] Care Team Providers Care Avionics Engineer Name Role Phone Jaime Day MD Primary Care Provide r Reason for Visit * Reason Comments Medication Refill Encounter Details Date Type Department Care Team (Late st Contact Info) Description 12/31/2023 Refill Family Medicine [address] [place] [phone] Jaime Day MD [address] [place] [address] [place] [address] Allergies Active Allergy Reactions Criticality Noted Date [...] (Zovirax)Indicatio ns:Lambda light chain myeloma ([facility] - [...] 3 04/11/20 24 Active Cholecalciferol 50 MCG (1999) Oral TabletIndications: Lambda light chain myeloma (HCC),Multiple [...] morning. 180 Tablet 1 3 Active Pen [place] 32G X 4 MM Use as [...] ons:Atrial fibrillation, unspecified type (HCC),Anticoagulat ion management encounter,emt intermediate current use of anticoagulant therapy,Paroxysmal atrial fibrillation [...] morning. 180 Capsule 1 4 Active Nystatin 563764 UNIT/ML Mouth/Throat SuspensionIndicati ons:Multiple myeloma in relapse (HCC) Swish and swallow 5 mL in the morning and 5 mL at noon and 5 mL in the evening and 5 mL before bedtime. 60 mL 1 4 Active DULoxetine HCl 20 MG Oral Capsule Delayed Release Particles (Cymbalta) Take 2 Capsules by mouth in the morning. 180 Capsule 1 3 12/31/19 24 Discontinu ed(Refill) documented [...] encounter Miscellaneous Notes * Telephone Encounter - Dipak Miller [facility] - 01/02/2024 12:37 PM EDT Signed Prescriptions: Disp Refills DULoxetine HCl 20 MG Oral Capsule Delayed *180 Ca*1 Sig: Take 2Capsules by mouth in the morning.Authorizing Provider: Joseluis DAY User: DIPAK MILLER documented in this encounter Plan of Treatment Upcoming Encounters Date Type Department Care Team (Late st Contact Info) Description 01/06/2024 2:30 PM EDT [facility] Visit [facility] [address] [place] [address] Sulma Seth, RN [address] [place] [address] 01/11/2024 9:30 AM EDT Telemedicine H[facility]ology [facility] Tyree UGARTE [address] [facility] [place] [address] Rosalio Amaral MD [address] [facility] [place] [id number] 01/13/2024 8:00 AM EDT Laboratory Laboratory [facility] [address] [place] [phone] [place] Lab Scenery [address] [place] [address] 01/13/2024 9:15 AM EDT Hem/Onc Treatment Hematology/Oncology Treatment, [place] [address] [place] [address] [place], Chair 5 Hem Onc Scene [address] [place] [address] 01/19/2024 3:00 PM EDT Office Visit Cardiology, [facility] [address] [place] [address] Beth Gibbs CRNP [address] [place] [address] 01/27/2024 9:00 AM EDT Laboratory Laboratory [facility] [place] [address] [place] [phone] [place] [facility] [address] [place] [address] 01/27/2024 10:00 AM EDT Home Visit [facility], [facility] [address] [place] [address] Sulma Seth, RN [address] [place] [address] 01/27/2024 10:00 AM EDT Hem/Onc Treatment Hematology/Oncology Treatment, [place] [address] [place] [phone] [place], Chair 11 Hem Onc Scenery [address] [facility] [address] 02/03/2024 8:20 AM EDT Anticoagulation Pharmacy, [address] [place] [address] [place] [address] 02/03/2024 8:30 AM EDT Office Visit Pharmacy, [address] [place] [address] [place] [address] 02/07/2024 9:00 AM EDT Nurse Only Ancillary [address] [place] [address] [place], Nurse [address] [place] [address] 02/15/2024 1:30 PM EDT Telemedicine [facility] Tyree UGARTE [address] [facility] [place] [address] Rosalio Amaral MD [address] [facility] [place] [address] 04/19/2024 9:30 AM EDT Office Visit Cardiology [address] [place] [address] Tim Ruiz PA-C [address] [place] [address] 10/30/2024 1:45 PM EST Office Visit Urology, [facility] [address] [place] [address] Devyn Paniagua MD [address] [place] [address] [place] [address] 01/01/2025 10:20 AM EDT Office Visit Otolaryngology [facility] [address] [place] [address] Haley Aguero PA-C [address] [place] [address] Health Maintenance Due Date Last Done Comments [...] Additional history exists CKD HGB USE SMARTSET 59541 12/29/202412/29, 12/30/2023, 11/14/2023, Additional history exists CKD PHOS USE SMARTSET 97007 12/29/202412/11, 11/14/2023, 10/28/2023, Additional history exists DTaP,Tdap,and [...] this encounter Medical Devices Implanted Type Area Chiller Operator Device Identifier Shelf Expiration Date Model / Serial / Lot Port Power Mri W/8fr Cath - [id number] Implanted:Qty: 1 on 09/26/2020 by Simone Michelle MD at OR [facility] Right: Chest CR BARD : PERIPHERAL VASCULAR 10/12/2021 [id number] / / [id number] Description:right IJ Lens Intraoc 19.0 - [id number] - [id number] Implanted:Qty: 1 on 02/03/2021 by Chris Sexton MD at OR [facility] Right: Eye BAUSCH & LOMB 09/11/2025 [id number] / [id number] / Lens Intraoc 19.0 - [id number] - [id number] Implanted:Qty: 1 on 02/24/2021 by Chris Sexton MD at OR [facility] Left: Eye BAUSCH & LOMB 10/12/2025 [id number] / [id number] System Urolift - [id number] Implanted:Qty: 2 on 03/17/2023 by Devyn Paniagua MD at OR [facility] N/A: Urethra [employer] 11/18/2023 HK669-8 / / [id number] System Urolift - [id number] Implanted:Qty: 3 on 03/17/2023 by Devyn Paniagua MD at OR [facility] N/A: Urethra [employer] 11/03/2023 JX195-0 / / [id number] documented as of this encounter Additional Health [...] and were consensually agreed upon. Care Teams Avionics Engineer Relationship Specialty Start Date End Date Jaime Day MD [address] [place] [address] [place] [id number] PCP - General Family Medicine 10/15/20 documented as of this encounter
--- OUTSIDE RECORDS SUMMARY | 2024-05-13 06:11 | External Medical Summary | Summary of Care ---
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 Test once daily DxE11.9 100 Strip 1 Active LancetsIndications: Type 2 diabetes mellitus with hemoglobin A1c goal of less than 7.0% ([facility]) Test once daily DxE11.9. 100 Each 5 1 Active Acyclovir 400 MG Oral Tablet (Zovirax)Indication s:Lambda light chain myeloma ([facility]) Take one tablet once daily 180 Tablet [...] (Decadron)Indicatio ns:Multiple myeloma not having achieved remission ([facility]) 5 tabs 2 times monthly 10 Tablet [...] hemoglobin A1c goal of less than 7.0% ([facility]) Take 2 Tablets by mouth in the morning. 180 Tablet 1 3 Active Pen [place] 32G X 4 MM Use as directed. [...] disease, without long-term current use of insulin ([facility]) Use as directed to check blood sugars daily. 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 - 12/30/2023 10:30 AM EDT Medication Therapy Disease Management - Anticoagulation Patient: Jerardo Ochoa Jr. | : 1970 Subjective Patient-Reported Symptoms: Patient Findings Negatives: Signs/symptoms of thrombosis, Signs/symptoms of bleeding, Change in health, Change in alcohol use, Change in activity, Upcoming invasive procedure, Missed doses, Extra doses, Change in medications, Change in diet/appetite, Bruising Objective Current Warfarin Dose As of 12/30/2023 Warfarin maintenance plan: 1.25 mg (2.5 mg x 0.5) every day INR Result As of 12/30/2023 INR goal: 2.0-3.0 INR used for dosin.7 (12/30/2023) Assessment & Plan Warfarin Plan As of 12/30/2023 Full warfarin instructions: 1.25 mg every day No change documented: Barbara Jiménez RPh Next INR check: 02/03/2024 Repeat PT/INR in 5 week(s) Weekly dose: not changed Additional Dosing Information: Description AMIO start 10/29/22 - 11/22/22 BID then QD after AMIO STOPPED 05/31 Barbara Jiménez RPh Clinical Pharmacist 12/30/2023, 10:30 AM documented in this encounter Plan of Treatment Upcoming Encounters Date Type Department Care Team (Late st Contact Info) Description 12/30/2023 12:40 PM EDT Laboratory Laboratory [facility] [place] [address] [place] [phone] [place], Lab Scenery [address] [facility] [place] [address] 12/30/2023 1:45 PM EDT Hem/Onc Treatment Hematology/Oncology Treatment, [place] [address] [place] [phone] [place], Chair 2 Hem Onc Scenery [address] [place] [address] 01/06/2024 2:30 PM EDT Home Visit [facility] [address] [facility] [place] [address] Sulma Seth, BOBBY [address] [place] [address] 01/11/2024 9:00 AM EDT Telemedicine H[facility]ology [facility] Tyree UGARTE [address] [facility] [place] [address] Rosalio Amaral MD [address] [facility] [place] [address] 01/19/2024 3:00 PM EDT Office Visit Cardiology, [facility] [address] [place] [address] Beth Gibbs CRNP [address] [place] [address] 01/27/2024 10:00 AM EDT Home Visit [facility], [facility] [address] [place] [address] Sulma Seth, BOBBY [address] [place] [address] 02/03/2024 8:20 AM EDT Anticoagulation Pharmacy, [address] [place] [address] [place] [address] 02/03/2024 8:30 AM EDT Office Visit Pharmacy, [address] [place] [address] [place] [address] 02/15/2024 1:30 PM EDT Telemedicine Hematology [facility] Tyree UGARTE [address] [facility] [place] [address] Rosalio Amaral MD [address] [facility] [place] [address] 04/19/2024 9:30 AM EDT Office Visit Cardiology [address] [place] [address] Tim Ruiz PA-C [address] [place] [address] 10/30/2024 1:45 PM EST Office Visit Urology, [facility] [address] [place] [address] Devyn Paniagua MD [address] [place] [address] [place] [address] 01/01/2025 10:20 AM EDT Office Visit Otolaryngology [facility] [address] [place] [address] Haley Aguero PA-C [address] [place] [address] Health Maintenance Due Date Last Done Comments [...] PPSV23 or PCV20) 05/22/2024 05/13/2020, 05/22/2019 GFR 06/19/2024 12/19/2023, 040 04/2024, 12/15/2023, Additional history exists Diabetic Eye Exam 07/11/2024 07/11/2023, , 07/05/2022, Additional history exists TSH 07/25/2024 07/25/2023, 03/12, 01/31/2023, Additional history exists Albumin/Creatinine Ratio 09/08/202409/08/2 023, 06/22/2023, 05/27/2023, Additional history exists CKD HGB USE SMARTSET 03827 11/13/202411/134, 11/14/2023, 10/28/2023, Additional history exists CKD PHOS USE SMARTSET 91775 11/13/2024 03/0 12/2023, 10/28/2023, 08/16/2023, Additional history [...] encounter Medical Devices Implanted Type Area Record Changer Tester Device Identifier Shelf Expiration Date Model / Serial / Lot Port Power Mri W/8fr Cath - [id number] Implanted:Qty: 1 on 09/26/2020 by Simone Michelle MD at OR [facility] Right: Chest CR BARD : PERIPHERAL VASCULAR 10/12/2021 [id number] / / [id number] Description:right IJ Lens Intraoc 19.0 - [id number] - [id number] Implanted:Qty: 1 on 02/03/2021 by Chris Sexton MD at OR [facility] Right: Eye [employer]OM[employer] 09/11/2025 [id number] / [id number] / Lens Intraoc 19.0 - [id number] - [id number] Implanted:Qty: 1 on 02/24/2021 by Chris Sexton MD at OR [facility] Left: Eye [employer]USCH [employer] LOMB 10/12/2025 [id number] / [id number] / [id number] System Urolift - [id number] Implanted:Qty: 2 on 03/17/2023 by Devyn Paniagua MD at OR [facility] N/A: Urethra [employer] 11/18/2023 [id number] / / [id number] System Urolift - [id number] Implanted:Qty: 3 on 03/17/2023 by Devyn Paniagua MD at OR [facility] N/A: Urethra [employer] 11/03/2023 [id number] / / [id number] documented as of this encounter Procedures Procedure Name Priority Date/Time Associated Diagnosis Comments INR FINGERSTICK, POINT OF CARE STAT 12/30/2023 10:38 AM EDT PAF (paroxysmal atrial fibrillation) (HCC) Anticoagulation management encounter USP current use of anticoagulant therapy documented in this encounter Results * INR FINGERSTICK, POINT OF CARE (12/30/2023 10:38 AM EDT) Fingerstick INR 2.7 INR 10:40 AM EDT [facility] [place] [address] Blood 12/30/2023 10:3 8 AM EDT 12/30/2023 10:40 AM EDT Narrative [facility]00 - 12/30/2023 10:40 AM EDT Therapeutic ranges for non-operative patients: Prophylaxsis/treatment of DVT: (Range:2.0-3.0) Treatment of pulmonary embolism:(Range:2.0-3.0) Prevention of systemic embolism from: -tissue heart valves -acute myocardial infarction -valvular heart disease -atrial fibrillation (Range: 2.0-3.0) Mechanical prosthetic valves: (Range: 2.5-3.5) Barbara Jiménez [facility] LAB POINT OF CARE TEST DOCKED DEVICE UNSOLICITED RESULTS [facility] [place] [address] documented in this encounter Visit Diagnoses Diagnosis PAF (paroxysmal atrial fibrillation) (HCC)- Primary Atrial fibrillation Anticoagulation management encounter Encounter for therapeutic drug monitoring USP current use of anticoagulant therapy documented in [...] and were consensually agreed upon. Care Teams Broommaking Supervisor Relationship Specialty Start Date End Date Jaime Garcia MD [address] [place] [address] [place] [phone] PCP - General Family Medicine 10/15/20 documented as of this encounter"
--- OUTSIDE RECORDS SUMMARY | 2024-05-13 06:11 | External Medical Summary | Summary of Care ---
Author Name Unknown Organization [facility] Address [address] [place] [address] Phone [phone] Care Team Providers Care Project Assistant Name Role Phone Jaime Garcia MD Primary Care Provide r Reason for Visit * Reason Onset Date Comments Advice 01/02/2024 Encounter Details Date Type Department Care Team (Late st Contact Info) Description 01/02/2024 Telephone Hematology [facility] Tyree UGARTE [address] [facility] [place] [address] Rosalio Amaral MD [address] [facility] [place] [address] Advice () Allergies Active Allergy Reactions Criticality Noted Date [...] HOSPITAL) Test once daily DxE11.9. 100 Each 1 Active Acyclovir 400 MG Oral Tablet (Zovirax)Indication s:Lambda light chain myeloma ([facility] [...] (Decadron)Indicatio ns:Multiple myeloma not having achieved remission ([facility]) 5 tabs 2 times monthly 10 [...] 24 Active Cholecalciferol 50 MCG (1999) Oral TabletIndications:L ambda light chain myeloma (HCC),Multiple [...] morning. 180 Tablet 1 3 Active Pen [place] 32G X 4 MM Use as directed. [...] Tablet 3 4 12/23/19 25 Active Nystatin 082202 UNIT/ML Mouth/Throat SuspensionIndicatio ns:Multiple myeloma in relapse [...] remission 06/14/2014 Overview: Dr Rodriges/ [facility] DIRECTIVE INFORMATION 10/13/2006 Overview: [...] Telephone Encounter - Beth Bailey OSA - 01/03/2024 8:35 AM EDT Pts apt changed and pt is aware * Telephone Encounter - Aron Padilla RN - 01/02/2024 12:01 PM EDT Scheduling- Please call patient to see when he wishes to reschedule. I would advise this can be done a day earlier on the 2nd if this works better for him, otherwise, will have to schedule into the following week. * Telephone Encounter - Alcira Perla OSA - 01/02/2024 10:32 AM EDT Patient would like to reschedule the chemo treatment appointment on 01/13/24 to a different day. Patient can be contacted at [phone]. documented in this encounter Plan of Treatment Upcoming Encounters Date Type Department Care Team (Late st Contact Info) Description 01/06/2024 2:30 PM EDT Home Visit [place] [facility], [facility] [address] [place] [address] Sulma Seth RN [address] [place] [address] 01/11/2024 9:30 AM EDT Telemedicine Hematology [facility] Tyree UGARTE [address] [facility] [place] [phone] Rosalio Amaral MD [address] [facility] [place] [id number] 01/12/2024 10:10 AM EDT Laboratory Laboratory [facility] [address] [place] [phone] [place], Lab [facility] [address] [facility] [place] [address] 01/12/2024 11:15 AM EDT Hem/Onc Treatment Hematology/Oncology Treatment, [place] [address] [facility] [place] [address] [place], Chair 10 Hem Onc Scenery 200 [facility] [place] [address] 01/19/2024 3:00 PM EDT Office Visit Cardiology, [facility] [address] [place] [address] Beth Gibbs CRNP [address] [place] [address] 01/27/2024 9:00 AM EDT Laboratory Laboratory [facility] [place] [address] [place] [phone] Nate Renae [address] [place] [address] 01/27/2024 10:00 AM EDT Home Visit [place] [facility], [facility] [address] [facility] [place] [address] Sulma Seth, BOBBY [address] [place] [address] 01/27/2024 10:00 AM EDT Hem/Onc Treatment Hematology/Oncology Treatment, [place] [address] [place] [phone] [place], Chair 11 Hem Onc Scenery [address] [place] [address] 02/03/2024 8:20 AM EDT Anticoagulation Pharmacy, [address] [place] [address] [place] [address] 02/03/2024 8:30 AM EDT Office Visit Pharmacy, [address] [place] [address] [place] [address] 02/07/2024 9:00 AM EDT Nurse Only Ancillary [address] [place] [address] [place] [facility] [address] [place] [address] 02/15/2024 1:30 PM EDT Telemedicine H[facility]ology [facility] Tyree UGARTE [address] [facility] [place] [address] Rosalio Amaral MD [address] [facility] [place] [address] 04/19/2024 9:30 AM EDT Office Visit Cardiology [address] [place] [address] Tim Ruiz PAKylie [address] [place] [address] 10/30/2024 1:45 PM EST Office Visit Urology, [facility] [address] [place] [address] Devyn Paniagua MD [address] [facility] [address] [place] [address] 01/01/2025 10:20 AM EDT Office Visit Otolaryngology [facility] [address] [place] [address] Haley Aguero PA-C [address] [place] [address] Health Maintenance Due Date Last Done Comments [...] Additional history exists CKD HGB USE SMARTSET 26034 12/29/202412/29, 12/30/2023, 11/14/2023, Additional history exists CKD PHOS USE SMARTSET 34212 12/29/202412/11, 11/14/2023, 10/28/2023, Additional history exists DTaP,Tdap,and [...] this encounter Medical Devices Implanted Type Area Miller Head Device Identifier Shelf Expiration Date Model / Serial / Lot Port Power Mri W/8fr Cath - [id number] Implanted:Qty: 1 on 09/26/2020 by Simone Michelle MD at OR [facility] Right: Chest CR BARD : PERIPHERAL VASCULAR 10/12/2021 [id number] / / [id number] Description:right IJ Lens Intraoc 19.0 - [id number] - [id number] Implanted:Qty: 1 on 02/03/2021 by Chris Sexton MD at OR [facility] Right: Eye [employer] 09/11/2025 [id number] / [id number] / Lens Intraoc 19.0 - [id number] - [id number] Implanted:Qty: 1 on 02/24/2021 by Chris Sexton MD at OR [facility] Left: Eye BAUSCH [employer] LOMB 10/12/2025 [id number] / [id number] System Urolift - [id number] Implanted:Qty: 2 on 03/17/2023 by Devyn Paniagua MD at OR [facility] N/A: Urethra [employer] 11/18/2023 [id number] / / [id number] System Urolift - [id number] Implanted:Qty: 3 on 03/17/2023 by Devyn Paniagua MD at OR [facility] N/A: Urethra [employer] 11/03/2023 [id number] / / [id number] documented as of this encounter Additional Health [...] and were consensually agreed upon. Care Teams Project Assistant Relationship Specialty Start Date End Date Jaime Garcia MD [address] [place] [address] [place] [id number] PCP - General Family Medicine 10/15/20 documented as of this encounter
--- OUTSIDE RECORDS SUMMARY | 2024-05-13 06:11 | External Medical Summary | Summary of Care ---
Author Name Unknown Organization [facility] Address [address] [place] [address] Phone [phone] Care Team Providers Care Workplace Relations Adviser Name Role Phone Jaime Garcia MD Primary Care Provide r Reason for Visit * Reason Comments Outpatient Testing Encounter Details Date Type Department Care Team (Late st Contact Info) Description 12/30/2023 12:40 PM EDT Laboratory Laboratory Scenery [facility] [address] [place] [phone] [place], Lab Scenery [address] [place] [address] PAF (paroxysmal atrial fibrillation) ([facility]); Anticoagulation management encounter; [facility] current use of anticoagulant therapy; Multiple myeloma without remission ([facility]); Multiple myeloma in relapse ([facility]); Lambda light chain myeloma ([facility]); Stage 3a chronic kidney disease ([facility]); [employer] Other*[id number]; BPH with obstruction/lower urinary tract symptoms; Erectile dysfunction due to diseases classified elsewhere Allergies Active Allergy Reactions Criticality Noted Date [...] Oral Tablet (Zovirax)Indication s:Lambda light chain myeloma ([facility] [...] (Decadron)Indicatio ns:Multiple myeloma not having achieved remission ([facility] [...] morning. 180 Tablet 1 3 Active Pen [place] 32G X 4 MM Use as directed. [...] PM) 600 Tablet 3 3 Active Nystatin 069492 UNIT/ML Mouth/Throat SuspensionIndicatio ns:Multiple myeloma in relapse [...] without remission 06/14/2014 Overview: Dr Rodriges/ [facility] DIRECTIVE INFORMATION 10/13/2006 [...] Team (Late st Contact Info) Description 12/30/2023 1:45 PM EDT Hem/Onc Treatment Hematology/Oncology Treatment, [place] [address] [place] [address] [place], Chair 2 Hem Onc Scenery [address] [place] [address] Arrived 01/06/2024 2:30 PM EDT Home Visit [facility], [address] [place] [address] [phone] Sulma Steh, RN [address] [place] [address] 01/11/2024 9:00 AM EDT Telemedicine [facility] Tyree UGARTE [address] [facility] [place] [address] Rosalio Amaral MD [address] [facility] [place] [address] 01/19/2024 3:00 PM EDT Office Visit Cardiology, [facility] [place] [address] Beth Gibbs CRNP [address] [place] [address] 01/27/2024 10:00 AM EDT Home Visit [facility], [facility] [place] [address] Sulma Seth, RN [facility] [place] [address] 02/03/2024 8:20 AM EDT Anticoagulation Pharmacy, [address] [place] [address] [place] [address] 02/03/2024 8:30 AM EDT Office Visit Pharmacy, [address] [place] [address] [place] [address] 02/15/2024 1:30 PM EDT Telemedicine [facility] Tyree UGARTE [address] [place] [address] Rosalio Amaral MD [address] [facility] [place] [address] 04/19/2024 9:30 AM EDT Office Visit Cardiology [address] [place] [address] Tim Ruiz PAPageC [address] [place] [address] 10/30/2024 1:45 PM EST Office Visit Urology, [facility] [address] [place] [address] Devyn Paniagua MD [address] [facility] [address] [place] [address] 01/01/2025 10:20 AM EDT Office Visit Otolaryngology [facility] [address] [place] [address] Haley Aguero PA-C [address] [place] [address] Pending Results Name Type Priority Associated Diagnoses Date /Time PT INR Lab Routine PAF (paroxysmal atrial fibrillation) ([facility]) 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 12/30/2023 12:15 PM EDT COMPREHENSIVE METABOLIC PANEL Lab STAT Multiple myeloma without remission ([facility]) 12/30/2023 12:15 PM EDT PHOSPHORUS Lab STAT Multiple myeloma in relapse ([facility]) 12/30/2023 12:15 PM EDT 25-HYDROXY VITAMIN D Lab STAT Lambda light chain myeloma ([facility]) Multiple myeloma without remission ([facility]) 12/30/2023 12:15 PM EDT SERUM PROTEIN ELECTROPHORESIS REFLEX PROFILE Lab STAT Lambda light chain myeloma ([facility]) 12/30/2023 12:15 PM EDT SERUM FREE LIGHT CHAINS Lab STAT Lambda light chain myeloma ([facility]) 12/30/2023 12:15 PM EDT PTH Lab Routine Stage 3a chronic kidney disease (HCC) 12/30/2023 12:15 PM EDT MYCODE SUBSEQUENT ADULT Lab Routine [employer] Other*[id number] 12/30/2023 12:15 PM EDT IMMUNOGLOBULIN QUANTITATIVE Lab STAT Multiple myeloma in relapse ([facility]) 12/30/2023 12:15 PM EDT URIC ACID Lab STAT Multiple myeloma in relapse ([facility]) 12/30/2023 12:15 PM EDT BNP, NT-PRO Lab STAT Multiple myeloma in relapse ([facility]) 12/30/2023 12:15 PM EDT TROPONIN T, HIGH SENSITIVITY Lab STAT Multiple myeloma in relapse ([facility]) 12/30/2023 12:15 PM EDT MYCODE SST1 Lab Routine [employer] Other*[id number] 12/30/2023 12:15 PM EDT MYCODE SST2 Lab Routine [employer] Other*[id number] 12/30/2023 12:15 PM EDT CULTURE, URINE, QUANTITATIVE Lab Routine BPH with obstruction/lower urinary tract symptoms Erectile dysfunction due to diseases classified elsewhere 12/30/2023 12:22 PM EDT PROTEIN/ CREATININE RATIO, URINE Lab Routine Stage 3a chronic kidney disease ([facility]) 12/30/2023 12:22 PM EDT URINALYSIS WITH MICROSCOPIC EXAM Lab Routine Stage 3a chronic kidney disease ([facility]) 12/30/2023 12:22 PM EDT URINE PROTEIN ELECTROPHORESIS REFLEX PROFILE, RANDOM URINE Lab STAT Multiple myeloma in relapse ([facility]) 12/30/2023 12:22 PM EDT ALBUMIN / CREATININE RATIO, URINE Lab STAT Multiple myeloma in relapse ([facility]) 12/30/2023 12:22 PM EDT Health Maintenance Due Date Last [...] PCV20) 05/22/2024 05/13/2020, 05/22/2019 GFR 06/19/2024 12/19/2023, 0404/2024, 12/15/2023, Additional history exists Diabetic Eye Exam 07/11/2024 07/11/2023, , 07/05/2022, Additional history exists TSH 07/25/2024 07/25/2023, 03/12, 01/31/2023, Additional history exists Albumin/Creatinine Ratio 09/08/2024 023, 06/22/2023, 05/27/2023, Additional history exists CKD HGB USE SMARTSET 07456 11/13/202412/29, 12/30/2023, 11/14/2023, Additional history exists CKD PHOS USE SMARTSET 21513 11/13/2024 030 12/2023, 10/28/2023, 08/16/2023, Additional history exists DTaP,Tdap,and [...] this encounter Medical Devices Implanted Type Area Hemmer Automatic Device Identifier Shelf Expiration Date Model / Serial / Lot Port Power Mri W/8fr Cath - [id number] Implanted:Qty: 1 on 09/26/2020 by Simone Michelle MD at OR [facility] Right: Chest CR BARD : PERIPHERAL VASCULAR 10/12/2021 [id number] / / [id number] Description:right IJ Lens Intraoc 19.0 - [id number] - [id number] Implanted:Qty: 1 on 02/03/2021 by Chris Sexton MD at OR [facility] Right: Eye BAUSCH [employer] LOMB 09/11/2025 [id number] / [id number] / Lens Intraoc 19.0 - [id number] - [id number] Implanted:Qty: 1 on 02/24/2021 by Chris Sexton MD at OR [facility] Left: Eye BAUSCH & LOMB 10/12/2025 [id number] / [id number] / [id number] System Urolift - [id number] Implanted:Qty: 2 on 03/17/2023 by Devyn Paniagua MD at OR [facility] N/A: Urethra [employer] 11/18/2023 [id number] / / [id number] System Urolift - [id number] Implanted:Qty: 3 on 03/17/2023 by Devyn Paniagua MD at OR [facility] N/A: Urethra [employer] 11/03/2023 [id number] / / [id number] documented as of this encounter Procedures Procedure Name Priority Date/Time Associated Diagnosis Comments DIFFERENTIAL, AUTOMATED STAT 12/30/2023 12:15 PM EDT Multiple myeloma without remission (HCC) CBC STAT 12/30/2023 12:15 PM EDT Multiple myeloma without remission (HCC) CBC STAT 12/30/2023 12:15 PM EDT Multiple myeloma without remission (HCC) documented in this encounter Results * (ABNORMAL) DIFFERENTIAL, AUTOMATED (12/30/2023 12:15 PM EDT) WBC 6.54 4.00 - 10.80 K/uL 12/30/2023 12:24 PM EDT [facility] 56-02 Neutrophils % 74.7 40.0 - 75.0 % 12/30/2023 12:24 PM EDT [facility] 56-02 Lymphocytes % 8.0(L) 18.0 - 42.0 % 12/30/2023 12:24 PM EDT [facility] 56 Monocytes % 14.1(H) 1.0 - 11.0 % 12/30/2023 12:24 PM EDT [facility] 56- Eosinophils % 2.9 0.0 - 6.0 % 12/30/2023 12:24 PM EDT [facility] 56 Basophils % 0.3 0.0 - 2.0 % 12/30/2023 12:24 PM EDT [facility] 56 Absolute Neutrophils 4.89 1.80 - 7.70 K/uL 12/30/2023 12:24 PM EDT [facility] 56 Absolute Lymphocytes 0.52(L) 1.00 - 4.80 K/ul 12/30/2023 12:24 PM EDT [facility] 56 Absolute Monocytes 0.92 0.00 - 1.10 K/uL 12/30/2023 12:24 PM EDT [facility] 56 Absolute Eosinophils 0.19 0.00 - 0.70 K/uL 12/30/2023 12:24 PM EDT [facility] 56 Absolute Basophils 0.02 0.00 - 0.20 K/uL 12/30/2023 12:24 PM EDT [facility] 56 Blood Venous blood specimen / Unknown Venipuncture / Unknown 12/30/2023 12:15 PM EDT 12/30/2023 12:15 PM EDT Rosalio Amaral MD LAB BLOOD ORDERABLES [facility] [address] [place] [address] * (ABNORMAL) CBC (12/30/2023 12:15 PM EDT) WBC 6.54 4.00 - 10.80 K/uL 12/30/2023 12:24 PM EDT [facility] 56 RBC 4.07 4.50 - 5.25 M/uL 12/30/2023 12:24 PM EDT [facility] 56 HGB 12.7(L) 14.0 - 16.8 g/dL 12/30/2023 12:24 PM EDT [facility] 56 HCT 37.6(L) 40.0 - 48.4 % 12/30/2023 12:24 PM EDT [facility] 56 MCV 92.4 82.0 - 99.5 fL 12/30/2023 12:24 PM EDT [address] MCH 31.2 27.0 - 34.0 pg 12/30/2023 12:24 PM EDT [address] MCHC 33.8 32.0 - 36.0 g/dL 12/30/2023 12:24 PM EDT [address] RDW 16.8 11.5 - 15.5 % 12/30/2023 12:24 PM EDT [facility] 56 PLT 411(H) 140 - 400 K/uL 12/30/2023 12:24 PM EDT [address] MPV 10.0 6.6 - 11.1 fL 12/30/2023 12:24 PM EDT [address] Blood Venous blood specimen / Unknown Venipuncture / Unknown 12/30/2023 12:15 PM EDT 12/30/2023 12:15 PM EDT Rosalio Amaral MD LAB BLOOD ORDERABLES [facility] [address] [place] [address] documented in this encounter Visit Diagnoses Diagnosis PAF (paroxysmal atrial fibrillation) (HCC) Atrial fibrillation Anticoagulation management encounter Encounter for therapeutic drug monitoring [facility] current use of anticoagulant therapy Multiple myeloma without remission (HCC) Multiple myeloma, without mention of having achieved remission Multiple myeloma in relapse (HCC) Multiple myeloma, in relapse Lambda light chain myeloma (HCC) Multiple myeloma, without mention of having achieved remission Stage 3a chronic kidney disease (HCC) [employer] Other*[id number] BPH with obstruction/lower urinary tract symptoms Hypertrophy of prostate with urinary obstruction and other lower urinary tract symptoms (LUTS) Erectile dysfunction due to diseases classified elsewhere documented in this encounter Additional Health Concerns [...] and were consensually agreed upon. Care Teams Workplace Relations Adviser Relationship Specialty Start Date End Date Jaime Garcia MD [address] [place] [address] [place] [id number] PCP - General Family Medicine 10/15/20 documented as of this encounter
--- OUTSIDE RECORDS SUMMARY | 2024-05-13 06:11 | External Medical Summary ---
Author Name Unknown Address Unknown Organization K01:LABORATORY [facility] - [facility] [address] [address] Laboratory Report Ordering Provider Test Date Status ANAMONIQUE 12/30/2023 12:22:59 Final Observation Date Value Abnormality Reference (Units) Status PARAPROTEIN NORMAL/ABNORMAL 12/30/2023 12:22:59 Abnormal Abnormal Normal Final Protein, Urine 12/30/2023 12:22:59 314 (mg/dL) Final Protein Fractions [Interpretation] in Urine by Electrophoresis Narrative 12/30/2023 12:22:59 Abnormal. Paraprotein present. See urine immunofixation results. Final Albumin, Urine 12/30/2023 12:22:59 243.4 (mg/dL) Final Globulin [Mass/volume] in Urine by Electrophoresis 12/30/2023 12:22:59 70.6 (mg/dL) Final Performing Location LABORATORY [place] [address] [address]
--- OUTSIDE RECORDS SUMMARY | 2024-05-13 06:11 | External Medical Summary | Summary of Care ---
Author Name Unknown Organization [facility] Address [address] [place] [address] Phone [phone] Care Team Providers Care Splicing Supervisor Name Role Phone Jaime Garcia MD Primary Care Provide r Encounter Details Date Type Department Care Team (Late st Contact Info) Description 12/29/2023 Telephone Family Medicine [address] [place] [phone] Jaime Garcia MD [address] [place] [address] [place] [address] Allergies Active Allergy Reactions Criticality Noted Date [...] goal of less than 7.0% ([facility]) Test once daily DxE11.9. 100 Each 5 1 Active Acyclovir 400 MG Oral Tablet (Zovirax)Indicatio ns:Lambda light chain myeloma ([facility]) Take one tablet once daily 180 [...] (Decadron)Indicati ons:Multiple myeloma not having achieved remission ([facility]) 5 tabs 2 times monthly 10 [...] goal of less than 7.0% ([facility]) Take 2 Tablets by mouth in the morning. 180 Tablet 1 3 Active Pen [place] 32G X 4 MM Use as directed. [...] ons:Atrial fibrillation, unspecified type (HCC),Anticoagulat ion management encounter,[facility] current use of anticoagulant therapy,Paroxysmal atrial fibrillation [...] Tablet 3 4 12/23/19 25 Active Nystatin 657990 UNIT/ML Mouth/Throat SuspensionIndicati ons:Multiple myeloma in relapse [...] you set up appt for patient to coem in for a RESPiratory PCR swab on [...] you set up appt for patient to [facility] # Waynelo Anna, Yes we can help pt with the respiratory panel. Would your team like the whole respiratory panel or RSV/COVID/Flu swab? ----- Message ----- From: Anna Daniel RN Sent: 12/28/2023 11:46 AM EDT To: Jaime Garcia MD; # Subject: Can you set up appt for patient to [facility] in f# Hi, Would it be possible [...] Description 01/06/2024 2:30 PM EDT [facility] [address] [facility] [place] [address] Sulma Seth, BOBBY [address] [place] [address] 01/11/2024 9:30 AM EDT Telemedicine H[facility]ology [facility] Tyree UGARTE [address] [facility] [place] [address] Rosalio Amaral MD [address] [facility] [place] [address] 01/13/2024 8:00 AM EDT Laboratory Laboratory [facility] [address] [place], [place] [address] [place], Lab Scenery [address] [place], [place] [address] 01/13/2024 9:15 AM EDT [facility] [address] [facility], [place] [phone] [place], Chair 5 Hem Onc Scenery [address] [place] [address] 01/19/2024 3:00 PM EDT Office Visit Cardiology, [facility] 132 [facility] [place] [address] Beth Gibbs CRNP [facility] [address] 01/27/2024 9:00 AM EDT Laboratory Laboratory [facility] [place] [address] [place] [phone] [place], Nate Schilling [address] [facility] [place], [place] [address] 01/27/2024 10:00 AM EDT [facility] [address] [facility] [place] [address] Sulma Seth RN [facility] [place] [address] 01/27/2024 10:00 AM EDT Hem/Onc Treatment Hematology/Oncology Treatment, [place] [address] [facility], [place] [phone] [place], Chair 11 Hem Onc Scenery [address] [place], [place] [address] 02/03/2024 8:20 AM EDT Anticoagulation Pharmacy, [address] [place] [address] [place] [address] 02/03/2024 8:30 AM EDT Office Visit Pharmacy, [address] [place] [address] [place] [address] 02/15/2024 1:30 PM EDT Telemedicine H[facility] Tyree UGARTE [address] [facility] [place] [id number] Rosalio Amaral MD [address] [facility] [place] [address] 04/19/2024 9:30 AM EDT Office Visit Cardiology [address] [place] [address] Tim Ruiz PA-C [address] [place] [address] 10/30/2024 1:45 PM EST Office Visit Urology, [facility] [address] [place] [address] Devyn Paniagua MD [address] [address] [place] [address] 01/01/2025 10:20 AM EDT Office Visit Otolaryngology [facility] 132 [place] [address] Haley Aguero PA-C [address] [place] [address] Health Maintenance Due Date Last Done Comments [...] Additional history exists CKD HGB USE SMARTSET 33972 12/29/202412/29, 12/30/2023, 11/14/2023, Additional history exists CKD PHOS USE SMARTSET 57579 12/29/202412/11, 11/14/2023, 10/28/2023, Additional history exists DTaP,Tdap,and [...] Medical Devices Implanted Type Area Director Of Culture Device Identifier Shelf Expiration Date Model / Serial / Lot Port Power Mri W/8fr Cath - [id number] Implanted:Qty: 1 on 09/26/2020 by Simone Michelle MD at OR [facility] Right: Chest CR BARD : PERIPHERAL VASCULAR 10/12/2021 [id number] / / [id number] Description:right IJ Lens Intraoc 19.0 - [id number] - [id number] Implanted:Qty: 1 on 02/03/2021 by Chris Sexton MD at OR [facility] Right: Eye [employer] LOMB 09/11/2025 [id number] / [id number] / Lens Intraoc 19.0 - [id number] - [id number] Implanted:Qty: 1 on 02/24/2021 by Chris Sexton MD at OR [facility] Left: Eye BAUSCH & LOMB 10/12/2025 [id number] / [id number] / [id number] System Urolift - [id number] Implanted:Qty: 2 on 03/17/2023 by Devyn Paniagua MD at OR [facility] N/A: Urethra [employer] 11/18/2023 [id number] / / [id number] System Urolift - [id number] Implanted:Qty: 3 on 03/17/2023 by Devyn Paniagua MD at OR [facility] N/A: Urethra [employer] 11/03/2023 [id number] / / [id number] documented as of this encounter Additional Health [...] and were consensually agreed upon. Care Teams Splicing Supervisor Relationship Specialty Start Date End Date Jaime Garcia MD [address] [place] [address] [place] [phone] PCP - General Family Medicine 10/15/20 documented as of this encounter
--- OUTSIDE RECORDS SUMMARY | 2024-05-13 06:12 | External Medical Summary ---
Author Name Unknown Address Unknown Organization K01:[facility] [place] [address] [place] [address] Laboratory Report Ordering Provider Test Date Status MONIQUE PEREZ 12/30/2023 12:15:34 Final Observation Date Value Abnormality Reference (Units ) Status Uric Acid 12/30/2023 12:15:34 6.4 3.4-7.0 (m g/dL) Final Performing Location LABORATORY [facility] - [address] [facility] [address]
--- OUTSIDE RECORDS SUMMARY | 2024-05-13 06:12 | External Medical Summary ---
Author Name Unknown Address Unknown Organization K09:LABORATORY [facility] - [address] [place] [address] Laboratory Report Ordering Provider Test Date Status JONATHAN FISCHER 12/30/2023 12:22:59 Final Observation Date Value Abnormality Reference (Units ) Status Color of Urine by Auto 12/30/2023 12:22:59 Flor Abnormal Colorless, Light Yellow, Yellow, Dark Yellow Final Clarity, Urine 12/30/2023 12:22:59 Clear Clear Final Glucose [Mass/volume] in Urine by Automated test strip 12/30/2023 12:22:59 Negative Negative (mg/dL) Final Bilirubin.total [Presence] in Urine by Automated test strip 12/30/2023 12:22:59 Small Abnormal Negative Final Ketones [Mass/volume] in Urine by Automated test strip 12/30/2023 12:22:59 Trace Abnormal Negative (mg/dL) Final Specific gravity, Urine 12/30/2023 12:22:59 1.025 1.003-1.030 Final Hemoglobin [Presence] in Urine by Automated test strip 12/30/2023 12:22:59 Negative Negative Final pH, Urine 12/30/2023 12:22:59 5.5 5.0-7.5 (Units) Final Protein [Mass/volume] in Urine by Automated test strip 12/30/2023 12:22:59 >=300 Abnormal Negative (mg/dL) Final Urobilinogen [Mass/volume] in Urine by Automated test strip 12/30/2023 12:22:59 1.0 0.2, 1.0 (mg/dL) Final Nitrite [Presence] in Urine by Automated test strip 12/30/2023 12:22:59 Negative Negative Final Leukocyte esterase [Presence] in Urine by Automated test strip 12/30/2023 12:22:59 Negative Negative Final RBC, Urine 12/30/2023 12:22:59 0-2 0-2 (/HPF) Final WBC, Urine 12/30/2023 12:22:59 0-2 0-2 (/HPF) Final Bacteria [#/area] in Urine sediment by Microscopy high power field 12/30/2023 12:22:59 0-25 0-25 (/HPF) Final Performing Location LAB[facility]ORY [facility] [address] [place] [address]
--- OUTSIDE RECORDS SUMMARY | 2024-05-13 06:12 | External Medical Summary ---
Author Name Unknown Address Unknown Organization K01:LAB[facility]ATORY [facility] [place] [address] [place] [address] Laboratory Report Ordering Provider Test Date Status MONIQUE PEREZ 12/30/2023 12:15:34 Final Exclude Heart Failure: <300 pg/mL
Diagnose Heart Failure:
Age <50 yr: >450 pg/mL
50-75 yr: >900 pg/mL
>75 yr: >1800 pg/mL
GFR is 30-59 mL/min: >1200 pg/mL or Age- adjusted values
GFR <30 mL/min: do not use, not reliable

Prognostic threshold: 1000 pg/mL Observation Date Value Abnormality Reference (Units ) Status BNP, Pro-hormone 12/30/2023 12:15:34 [address] Above high no rmal <300 (pg/mL) Final Performing Location LAB[facility]ATORY [facility] - [address] [place] [address]
--- OUTSIDE RECORDS SUMMARY | 2024-05-13 06:12 | External Medical Summary ---
Author Name Unknown Address Unknown Organization K01:LABORATORY [facility] [place] - [address] [facility] [address] [facility] [address] Laboratory Report Ordering Provider Test Date Status MONIQUE PEREZ 12/30/2023 12:15:34 Final Observation Date Value Abnormality Reference (Units) Status PARAPROTEIN NORMAL/ABNORMAL 12/30/2023 12:15:34 Abnormal Abnormal Normal Final Protein 12/30/2023 12:15:34 5.6 Below low normal 6.0-8.3 (g/dL) Final Albumin/Protein.total [Pure mass fraction] in Serum or Plasma by Electrophoresis 12/30/2023 12:15:34 3.21 Below low normal 3.30-4.40 (g/dL) Final Alpha 1 globulin/Protein.tota l [Pure mass fraction] in Serum or Plasma by Electrophoresis 12/30/2023 12:15:34 0.32 Above high normal 0.10-0.30 (g/dL) Final Alpha 2 globulin/Protein.tota l [Pure mass fraction] in Serum or Plasma by Electrophoresis 12/30/2023 12:15:34 1.06 Above high normal 0.60-1.00 (g/dL) Final Beta globulin/Protein.tota l [Pure mass fraction] in Serum or Plasma by Electrophoresis 12/30/2023 12:15:34 0.69 Below low normal 0.80-1.30 (g/dL) Final Gamma globulin/Protein.tota l [Pure mass fraction] in Serum or Plasma by Electrophoresis 12/30/2023 12:15:34 0.32 Below low normal 0.70-1.70 (g/dL) Final Protein Fractions [Interpretation] in Serum or Plasma by Electrophoresis Narrative 12/30/2023 12:15:34 There is a small irregularity of undetermined clinical significance in the gamma fraction. Decreased gamma fraction. Final Performing Location LABORATORY [facility] - [address] [facility] [address]
--- OUTSIDE RECORDS SUMMARY | 2024-05-13 06:12 | External Medical Summary | Summary of Care ---
Author Name Unknown Organization [facility] Address [address] [place] [address] Phone [phone] Care Team Providers Care Manager Med Surg Name Role Phone Jaime Garcia MD Primary Care Provide r Reason for Visit * Reason Comments NEW PATIENT Muffled hearing * Evaluate & Treat - Unlimited Visits (Within 30 days (routine)) - Authorized Specialty Diagnoses / Procedures Referred By Darin lui Referred To Contact Otolaryngology Diagnoses Recurrent sinusitis Jaime Garcia MD [address] [place] [address] [place] [id number] Referral ID Status Reason Start Date Expiration Date Visits Requested Visits Authorized [id number] Authorized Specialty Services Required 10/18/[phone] Encounter Details Date Type Department Care Team (Latest Contact Info) Description 12/29/2023 9:00 AM EDT Office Visit Otolaryngology [facility] [address] [place] [address] Haley Aguero PA-C [address] [place] [address] Asymmetrical sensorineural hearing loss* Allergies Active Allergy Reactions Criticality Noted Date Comments Atorvastatin Muscle pain High 03/30/2019 Ezetimibe Muscle pain High 01/25/2020 documented as of this encounter (statuses as of 12/29/2023) Medications Medication Sig Dispensed Refills Start Date [...] morning. 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,Paroxysmal atrial fibrillation [...] as of this encounter (statuses as of 12/29/2023) Active Problems Problem Noted Date Diagnosed Date [...] as of this encounter (statuses as of 12/29/2023) Resolved Problems Problem Noted Date Diagnosed Date [...] as of this encounter (statuses as of 12/29/2023) Immunizations Name Administration Dates Next Due COVID-19, [...] Pressure - - Pulse - - Temperature 35.7 C (96.3 F) 12/29/2023 9:09 AM ED T Respiratory Rate - - Oxygen Saturation - - Inhaled Oxygen Concentration - - Weight 63 kg (139 lb) 12/29/2023 9:09 AM EDT Height 175.3 cm (5' 9") 12/29/2023 9:09 AM EDT Body Mass Index 20.53 12/29/2023 9:09 AM EDT documented in this encounter Progress Notes * Haley Aguero PA-C - 12/29/2023 9:44 AM EDT Images from the original note were not included. 12/29/2023 Nursing Notes: Irineo Stanford, [facility] 12/29/23 0910 Signed Chief Complaint Patient presents with NEW PATIENT Muffled hearing Jerardo Ochoa Jr. is a 53 year old male who presents today with muffled hearing in both ears that started 3-4 months ago. He describes it as if his ears are about to pop where he can hear himself talk inside his head. He denies ear pain or tinnitus. He denies ear trauma, noise exposure or prior earinfection. He has nasal drainage but he denies nasal congestion or post nasal drip. He uses Flonaseas needed. HISTORY OF PRESENT ILLNESS This 53 year old YO male is seen at the request of Jaime Garcia MD for the evaluation of hearing changes. Patient reports that his symptoms started approximately 3-4 months ago. He will have 1-2 episodes daily that lasts less than 1 minute in which he feels that his voices echoed. This does occur bilaterally. Any recent vertigo. Denies acute changes hearing. Denies aural pressure. He does have loud noise exposure through firearm use- is a right handed shooter. Past Medical History: Diagnosis Date A-fib (HCC) [...] performed by Simone Michelle MD at OR [facility] COLONOSCOPY, DIAGNOSTIC (RECTUM) 09/09/2021 normal bx / COLONOSCOPY FLEXIBLE PROXIMAL DIAGNOSTIC performed by Philip Graham MD at ENDOSCOPY [facility] CYSTOURETHROSCOPY, W/ TRANSPROSTATIC IMPLANT N/A 03/17/2023 CYSTOURETHROSCOPY, WITH INSERTION OF PERMANENT ADJUSTABLE TRANSPROSTATI IMPLANT; SINGLE IMPLANT performed by Devyn Paniagua MD at OR [facility] EGD, FLEXIBLE, DIAGNOSTIC 10/15/2019 normal bx / ESOPHAGOGASTRODUODENOSCOPY (EGD), FLEXIBLE, TRANSORAL, DIAGNOSTIC performed by Mellissa Mari MD at ENDOSCOPY [facility] EGD, FLEXIBLE, DIAGNOSTIC N/A 05/06/2023 esophageal plaques, biopsies confirm rebeca/EGD/MN EGD, W/ENDOSCOPIC US N/A 05/06/2023 multiple cystic lesion pancreatic head and body/EUS/MN INFORMATION vasectomy reversal INFORMATION status post autologous stem cell transplantation in 2015 - per cardiology note INSER TUNN ACC DEV;5 YRS/OLDER N/A 09/26/2020 INSERT TUNNELED CENTRAL VENOUS ACCESS WITH SUBQ PORT performed by Simone Michelle MD at OR [facility] MRI L SPINE W WO CONTRAST [place], was told he had a herniated disc REMOVE CATARACT, INSERT LENS PROSTH Right 02/03/2021 RIGHT EXTRACAPSULAR CATARACT REMOVAL WITH INTRAOCULAR LENS performed by Chris Sexton MD at [facility] REMOVE CATARACT, INSERT LENS PROSTH Left 02/24/2021 LEFT EXTRACAPSULAR CATARACT REMOVAL WITH INTRAOCULAR LENS performed by Chris Sexton MD at OR [facility] VASECTOMY 1999 Medications Current Outpatient Medications Medication Sig Dispense Refill [...] in the morning. 180 Tablet 1 Pen [place] 32G X 4 MM Use as directed. Inject Lantus once daily. 50 Each 3 Folic Acid 400 MCG Oral Tablet [...] mouth in the morning. 90 Tablet 1 Prochlorperazine Maleate 10 MG Oral Tablet (Compazine) Take 1 Tablet by mouth every 6 hours as needed for Nausea. 40 Tablet 0 NSS 0.9 % SOLN 100 mL with [...] DAY OR OTHER MEDICATIONS 90 Tablet 3 Hizentra 4 GM/20ML Subcutaneous Solution [...] one hour prior toHizentra, 50 Capsule 2 oxyCODONE-Acetaminophen 5-325 MG Oral Tablet (Percocet) Take 1 Tablet by mouth every 6 hours as needed for Pain, Severe. (Patient not taking: Reported on 12/16/2023) 10 Tablet 0 Icosapent Ethyl 1 GM Oral Capsule (Vascepa) Take 2 Capsules by mouth 2 times a day with morning andevening meals. Swallow capsules whole, do not open or break. 360 Capsule 3 Nystatin 392139 UNIT/ML Mouth/Throat Suspension Swish and swallow 5 mL in the morning and 5 mL at noon and 5 mL in the evening and 5 mL before bedtime. (Patient not taking: Reported on 10/04/2023) 60 mL 1 Ondansetron HCl 8 MG Oral Tablet (Zofran) Take 1 Tablet by mouth every 8 hours as needed for Nausea. 30 Tablet 3 Ondansetron 4 MG Oral Tablet Disintegrating (Zofran) (Patient not taking: Reported on 12/29/2023) Potassium Chloride ER 20 MEQ Oral Tablet Extended Release Take 1 Tablet by mouth in the morning. (Patient not taking: Reported on 12/16/2023) Advanced Probiotic 10 Oral Capsule 1 Capsule in the morning. (Patient not taking: Reported on 11/21/2023) Allopurinol 100 MG Oral Tablet (Zyloprim) Take 1 Tablet by mouth in the morning. (Patient not taking: Reported on 12/16/2023) 30 Tablet 4 Magnesium Chloride 64 MG Oral Tablet Delayed Release (Mag64) Take 1 Tablet by mouth in the morning and 1 Tablet before bedtime. 180 Tablet 3 No current facility-administered medications for this visit. Allergies Review of patient's allergies indicates: Allergen Reactions Atorvastatin Muscle pain Zetia [Ezetimibe] Muscle pain Family History No family history on file. Social History Social History Tobacco Use Smoking status: Never Smokeless tobacco: Current Types: Chew Tobacco comments: one pouch or a little less daily for 17 years Substance Use Topics Alcohol use: Yes Comment: rarely Vaping/E-Cigarette Use Vaping/E-Cigarette Use Never User Vaping/E-Cigarette Substances Vaping/E-Cigarette Devices REVIEW OF SYSTEMS Negative for constitutional, heart, lung, liver, kidney, digestive, hematologic, neurologic, rheumatologic, or endocrine complaints except as per history of present illness and past medical history. PHYSICAL EXAMINATION: Temp 35.7 C (96.3 F) (Tympanic) | Ht 1.753 m (5' 9") | Wt 63 kg (139 lb) | BMI 20.53 kg/m | BSA 1.75 m Physical Examination: General: this is a healthy appearing male who appears his stated age. The patient is alert and appropriately verbally conversant without hoarseness. Nose: Septum nonobstructing, turbinates normal, no masses, polyps, or mucopus. Oral Cavity: Examination of the oral cavity revealed no mass lesions nor infection. The palate was noted to be intact without evidence of clefting. The tongue exhibited normal mobility. Mucosa was moist without lesion. The lips were free of lesion. Gums were free of inflammation. Dentition: Unremarkable Oropharynx: The oral pharynx was free of mass lesion or mucosal abnormality. The palate was noted to be without lesions. The uvula was normal appearing. The tonsils were unremarkable Ears: Examination of the ears revealed that the auricles were normally formed with no lesions. The external auditory canals were cleaned of any obstructing cerumen. The tympanic membranes were intactand freely mobile to pneumatoscopy without perforation or significant retraction pockets. Neck: Visualization and palpation of the neck revealed no mass lesions, no thyromegaly or thyroid masses. No skin lesions or inflammatory processes were detected. The cervical musculature was normal to palpation. Lymphatics (cervical): There were no palpable lymph nodes in the posterior triangle, submandibular triangle, jugulodigastric region, or central neck . Encounter Diagnoses Name Primary? Asymmetrical sensorineural hearing loss Yes Plan: Findings of examination and recommendations were discussed with the patient. Ear examination and tympanograms are normal. He does have an asymmetrical sensorineural hearing loss, is a right-handed shooter, speech discrimination is symmetrical. Recommend repeat audiogram in 6-12 months, could consider future MRI Haley Aguero PA-C 12/29/2023 9:45 AM documented in this encounter Nursing Notes * Irineo Stanford CMA - 12/29/2023 9:02 AM EDT Chief Complaint Patient presents with NEW PATIENT Muffled hearing Jerardo Ochoa Jr. is a 53 year old male who presents today with muffled hearing in both ears that started 3-4 months ago. He describes it as if his ears are about to pop where he can hear himself talk inside his head. He denies ear pain or tinnitus. He denies ear trauma, noise exposure or prior earinfection. He has nasal drainage but he denies nasal congestion or post nasal drip. He uses Flonaseas needed. documented in this encounter Plan of Treatment Upcoming Encounters Date Type Department Care Team (Late st Contact Info) Description 12/30/2023 10:30 AM EDT Anticoagulation Pharmacy, [address] [place] [phone] [place] [address] 12/30/2023 12:40 PM EDT Laboratory Laboratory [facility] [place] [address] [place], [place] [address] [place], Lab Scenery [address] [place], [place] [address] 12/30/2023 1:45 PM EDT Hem/Onc Treatment Hematology/Oncology Treatment, [place] [address] [place] [id number] [place], Chair 2 Hem Onc Scenery [address] [place], [place] [address] 01/06/2024 2:30 PM EDT [facility] Visit [facility] [place], [facility] [address] [place] [address] Sulma Seth RN [address] [place] [address] 01/11/2024 9:00 AM EDT Telemedicine Hematology [facility] Tyree UGARTE [address] [facility] [place] [address] Rosalio Amaral MD [address] [facility] [place] [address] 01/19/2024 3:00 PM EDT Office Visit Cardiology, [facility] [address] [facility] [place] [address] Beth Gibbs CRNP [address] [place] [address] 01/27/2024 10:00 AM EDT [facility], [facility] [address] [place] [address] Sulma Seth, BOBBY [address] [place] [address] 02/15/2024 1:30 PM EDT Telemedicine Hematology [facility] Tyree UGARTE [address] [facility] [place] [address] Rosalio Amaral MD [address] [facility] [place] [address] 04/19/2024 9:30 AM EDT Office Visit Cardiology [address] [place] [address] Tim Ruiz PA-C [address] [place] [address] 10/30/2024 1:45 PM EST Office Visit Urology, [facility] [address] [place] [address] Devyn Paniagua MD [address] [facility] [address] [place] [address] 01/01/2025 10:20 AM EDT Office Visit [facility] [place] [address] Haley Aguero PA-C [address] [place] [address] Scheduled Referrals Name Type Priority Associated Diagnoses Order Schedule OTOLARYNGOLOGY REFERRAL OP Referral Within 30 days (routine) Recurrent sinusitis Ordered: 10/18/2023 Health Maintenance Due Date Last Done Comments [...] Additional history exists CKD HGB USE SMARTSET 87999 11/13/202411/13, 11/14/2023, 10/28/2023, Additional history exists CKD PHOS USE SMARTSET 75853 11/13/2024 030 12/2023, 10/28/2023, 08/16/2023, Additional history [...] this encounter Medical Devices Implanted Type Area Aluminum Pool Installer Device Identifier Shelf Expiration Date Model / Serial / Lot Port Power Mri W/8fr Cath - [id number] Implanted:Qty: 1 on 09/26/2020 by Simone Michelle MD at OR [facility] Right: Chest CR BARD : PERIPHERAL VASCULAR 10/12/2021 [id number] / / [id number] Description:right IJ Lens Intraoc 19.0 - [id number] - [id number] Implanted:Qty: 1 on 02/03/2021 by Chris Sexton MD at OR [facility] Right: Eye [employer] 09/11/2025 [id number] / [id number] / Lens Intraoc 19.0 - [id number] - [id number] Implanted:Qty: 1 on 02/24/2021 by Chris Sexton MD at OR [facility] Left: Eye BAUSCH [employer] LOMB 10/12/2025 [id number] / [id number] / [id number] System Urolift - [id number] Implanted:Qty: 2 on 03/17/2023 by Devyn Paniagua MD at OR [facility] N/A: Urethra [employer] 11/18/2023 [id number] / / [id number] System Urolift - [id number] Implanted:Qty: 3 on 03/17/2023 by Devyn Paniagua MD at OR [facility] N/A: Urethra [employer] 11/03/2023 [id number] / / [id number] documented as of this encounter Visit Diagnoses Diagnosis Asymmetrical sensorineural hearing loss- Primary Sensorineural hearing loss, asymmetrical documented in this encounter Additional Health Concerns [...] were consensually agreed upon. Care Teams Manager Med Surg Relationship Specialty Start Date End Date Jaime Garcia MD [address] [place] [address] [place] [address] PCP - General Family Medicine 10/15/20 documented as of this encounter
--- OUTSIDE RECORDS SUMMARY | 2024-05-13 06:12 | External Medical Summary ---
Author Name Unknown Address Unknown Organization [id number]:LABORATORY [facility] - [address] [place] [address] Laboratory Report Ordering Provider Test Date Status JONATHAN FISCHER 12/30/2023 12:22:59 Final Normal: <150 mg/ g creatinine
High: 150-500 mg/g creatinine
Very High: >500 mg/g creatinine
Nephrotic: >3000 mg/g creatinine Observation Date Value Abnormality Reference (Units ) Status Protein/Creatinine [Ratio] in Urine 12/30/2023 12:22:59 1023 Above high normal <150 (mg/g ) Final Protein, Urine 12/30/2023 12:22:59 315 (mg/dL) Final Creatinine, Urine 12/30/2023 12:22:59 308 (mg/dL) Final Performing Location LAB[facility]ORY [facility] - [address] [place] [address]
--- OUTSIDE RECORDS SUMMARY | 2024-05-13 06:12 | External Medical Summary ---
Author Name Unknown Address Unknown Organization K01:[facility]ATORY [facility] - [address] [place] [address] Laboratory Report Ordering Provider Test Date Status MONIQUE PEREZ 12/30/2023 12:15:34 Final Observation Date Value Abnormality Reference (Units ) Status LDH 12/30/2023 12:15:34 156 <=250 (U/L ) Final Performing Location [facility] - [address] [place] [address]
--- OUTSIDE RECORDS SUMMARY | 2024-05-13 06:12 | External Medical Summary ---
Author Name Unknown Address Unknown Organization K09:[facility] [address] [place] [address] Laboratory Report Ordering Provider Test Date Status MONIQUE PEREZ 12/30/2023 12:15:34 Final Observation Date Value Abnormality Reference (Units ) Status WBC, Total 12/30/2023 12:15:34 6.54 4.00-10.8 0 (K/uL) Final RBC 12/30/2023 12:15:34 4.07 4.50-5.25 (M/uL) Final Hemoglobin 12/30/2023 12:15:34 12.7 Below low normal 14 .0-16.8 (g/dL) Final HCT 12/30/2023 12:15:34 37.6 Below low normal 40. 0-48.4 (%) Final MCV 12/30/2023 12:15:34 92.4 82.0-99.5 (fL) Final MCH 12/30/2023 12:15:34 31.2 27.0-34.0 (pg) Final MCHC 12/30/2023 12:15:34 33.8 32.0-36.0 (g/dL) Final RDW 12/30/2023 12:15:34 16.8 11.5-15.5 (%) Final Platelets 12/30/2023 12:15:34 411 Above high normal 14 0-400 (K/uL) Final MPV 12/30/2023 12:15:34 10.0 6.6-11.1 ( fL) Final Performing Location [facility] [address] [place] [address]
--- OUTSIDE RECORDS SUMMARY | 2024-05-13 06:12 | External Medical Summary ---
Author Name Unknown Address Unknown Organization K01:LABORATORY [facility] - [address] [facility] [address] [place] [address] Laboratory Report Ordering Provider Test Date Status MONIQUE PEREZ 12/30/2023 12:15:34 Final Observation Date Value Abnormality Reference (Units) Status PARAPROTEIN NORMAL/ABNORMAL 12/30/2023 12:15:34 Abnormal Abnormal Normal Final Immunofixation for Serum or Plasma 12/30/2023 12:15:34 A monoclonal IgG kappa gammopathy is present. Final Performing Location LABORATORY [facility] - [address] [place] [address]
--- OUTSIDE RECORDS SUMMARY | 2024-05-13 06:12 | External Medical Summary ---
Author Name Unknown Address Unknown Organization K01:LABORATORY [facility] - [facility] [place] [address] Laboratory Report Ordering Provider Test Date Status ANAMONIQUE 12/30/2023 12:15:34 Final Observation Date Value Abnormality Reference (Units ) Status [place] light chains, Free, Serum 12/30/2023 12:15:34 4.85 3.30-19.40 (mg/L) Final Lambda light chains, free, Serum 12/30/2023 12:15:34 76.16 Above high normal 5.71-26.30 (mg/L) Final KAPPA LAMBDA FLC RATIO 12/30/2023 12:15:34 0.06 Below low normal 0.26-1.65 Final Performing Location LABORATORY [facility] - [facility] [place] [address]
--- OUTSIDE RECORDS SUMMARY | 2024-05-13 06:12 | External Medical Summary | Summary of Care ---
Author Name Unknown Organization [facility] Address [address] [place] [address] Phone [phone] Care Team Providers Care Gas Treater Name Role Phone Jaime Garcia MD Primary Care Provide r Reason for Visit * Reason Onset Date Comments Nurse Documentation 12/28/2023 Encounter Details Date Type Department Care Team (Late st Contact Info) Description 12/28/2023 Telephone Hematology [facility]cology [facility], [place] [address] [facility] [place] [address] Anna Daniel, RN Nurse Documentation Allergies Active Allergy Reactions Criticality Noted Date Comments Atorvastatin Muscle pain High 03/30/2019 Ezetimibe Muscle pain High 01/25/2020 documented as of this encounter (statuses as of 12/28/2023) Medications Medication Sig Dispensed Refills Start Date [...] morning. 180 Tablet 1 3 Active [place] 32G X 4 MM Use as directed. [...] PM) 600 Tablet 3 3 Active Nystatin 070333 UNIT/ML Mouth/Throat SuspensionIndicatio ns:Multiple myeloma in relapse [...] as of this encounter (statuses as of 12/28/2023) Active Problems Problem Noted Date Diagnosed Date [...] myeloma without remission 06/14/2014 Overview: Dr Rodriges/ [facility] ADVANCE DIRECTIVE INFORMATION 10/13/2006 Overview: No, Advance Directive brochure offered , patient declined. Degeneration of lumbosacral intervertebral disc 02/19/2005 documented as of this encounter (statuses as of 12/28/2023) Resolved Problems Problem Noted Date Diagnosed Date [...] as of this encounter (statuses as of 12/28/2023) Immunizations Name Administration Dates Next Due COVID-19, [...] Team (Late st Contact Info) Description 12/29/2023 9:00 AM EDT Office Visit Otolaryngology [facility] [address] [place] [address] Haley Aguero PA-C [address] [place] [address] 12/30/2023 12:40 PM EDT Laboratory [facility] [place] [address] [place] [address] [place] Lab [address] [facility] [place] [address] 12/30/2023 1:45 PM EDT Hem/Onc Treatment Hematology/Oncology Treatment, [place] [address] [place] [address] [place], Chair 2 Hem Onc Scenery [address] [place] [address] 01/06/2024 2:30 PM EDT [facility] [address] [place] [address] Sulma Seth, RN [address] [place] [address] 01/11/2024 9:00 AM EDT Telemedicine Hematology Oncology [facility] [place]ree [place] [address] [place] [address] Rosalio Amaral MD [address] [facility] [place] [address] 01/19/2024 3:00 PM EDT Office Visit Cardiology, [facility] [address] [facility] [place] [address] Beth Gibbs CRNP [facility] [place] [address] 01/27/2024 10:00 AM EDT [facility] Visit [facility] [place] [address] Sulma Seth, RN 132 [facility] [place] [address] 02/15/2024 1:30 PM EDT Telemedicine Hematology [facility] [place]ree [place] [address] [place] [address] Rosalio Amaral MD [address] [place] [address] 03/08/2024 9:00 AM EDT Office Visit Cardiology [address] [place] [address] Tim Ruiz PA-C [address] [place] [address] 10/30/2024 1:45 PM EST Office Visit Urology, [facility] [address] [place] [place] [address] Devyn Paniagua MD [address] [place] [address] [place] [address] Scheduled Orders Name Type Priority Associated Diagnoses Orde r Schedule RESPIRATORY PATHOGEN PANEL, PCR Lab STAT Multiple myeloma without remission (HCC) 1 Occurrences starting 12/28/2023 until 01/26/2025 Health Maintenance Due Date Last Done Comments [...] PCV20) 05/22/2024 05/13/2020, 05/22/2019 GFR 06/19/2024 12/19/2023, 04/0 04/2024, 11/14/2023, Additional history exists Diabetic Eye Exam 07/11/2024 07/11/2023, , 07/05/2022, Additional history exists TSH 07/25/2024 07/25/2023, 03/12, 01/31/2023, Additional history exists Albumin/Creatinine Ratio 09/08/202409/08/2 023, 06/22/2023, 05/27/2023, Additional history exists CKD HGB USE SMARTSET 21137 11/13/202411/13, 11/14/2023, 10/28/2023, Additional history exists CKD PHOS USE SMARTSET 88978 11/13/2024 03/0 12/2023, 10/28/2023, 08/16/2023, Additional history [...] this encounter Medical Devices Implanted Type Area Waste Collection Driver Device Identifier Shelf Expiration Date Model / Serial / Lot Port Power Mri W/8fr Cath - [id number] Implanted:Qty: 1 on 09/26/2020 by Simone Michelle MD at OR [facility] Right: Chest CR BARD : PERIPHERAL VASCULAR 10/12/2021 [id number] / / [id number] Description:right IJ Lens Intraoc 19.0 - [id number] - [id number] Implanted:Qty: 1 on 02/03/2021 by Chris Sexton MD at OR [facility] Right: Eye [employer] 09/11/2025 [id number] / [id number] / Lens Intraoc 19.0 - [id number] - [id number] Implanted:Qty: 1 on 02/24/2021 by Chris Sexton MD at OR [facility] Left: Eye BAUSCH [employer] LOMB 10/12/2025 [id number] / [id number] / [id number] System Urolift - [id number] Implanted:Qty: 2 on 03/17/2023 by Devyn Paniagua MD at OR [facility] N/A: Urethra [employer] 11/18/2023 [id number] / / [id number] System Urolift - [id number] Implanted:Qty: 3 on 03/17/2023 by Devyn Paniagua MD at OR [facility] N/A: Urethra [employer] 11/03/2023 [id number] / / [id number] documented as of this encounter Visit Diagnoses [...] were consensually agreed upon. Care Teams Gas Treater Relationship Specialty Start Date End Date Jaime Garcia MD [address] [place] [address] [place] [address] PCP - General Family Medicine 10/15/20 documented as of this encounter
--- OUTSIDE RECORDS SUMMARY | 2024-05-13 06:12 | External Medical Summary ---
Author Name Unknown Address Unknown Organization K01:LABORATORY [facility] [place] - [address] [place] [address] Laboratory Report Ordering Provider Test Date Status MENA MURCIA 12/30/2023 12:15:34 Final Observation Date Value Abnormality Reference (Units ) Status MYCODE SPECIMEN-SST 12/30/2023 12:15:34 Freezing of extracted DNA, whole blood and/or serum. Final Performing Location LABORATORY C - [address] [place] [address]
--- OUTSIDE RECORDS SUMMARY | 2024-05-13 06:12 | External Medical Summary | Summary of Care ---
Author Name Unknown Organization [facility] Address [address] [place] [address] Phone [phone] Care Team Providers Care Realtime Court Reporter Name Role Phone Jaime Garcia MD Primary Care Provide r Encounter Details Date Type Department Care Team (Latest Contact Info) Description 12/29/2023 1:30 PM EDT Office Visit Audiology [facility] [address] [place] [address] Lesly Holcomb Au.D. [address] [place] [address] Bilateral sensorineural hearing loss* Allergies Active Allergy Reactions [...] less than 7.0% ([facility]) Use as directed daily. Test once [...] less than 7.0% ([facility]) Take 2 Tablets by mouth in the morning. 180 Tablet 1 3 Active Pen [place] 32G X 4 MM Use as directed. [...] PM) 600 Tablet 3 3 Active Nystatin 198429 UNIT/ML Mouth/Throat SuspensionIndicatio ns:Multiple myeloma in relapse [...] Overview: Dr Rodriges/ [facility] DIRECTIVE INFORMATION 10/13/2006 Overview: No, Advance [...] as of this encounter Progress Notes * Lesly Holcomb Au.D. - 12/29/2023 9:55 AM EDT Images from the original note were not included. Audiologic evaluation was completed on referral from Otolaryngology clinic. Tympanometry [address]4965 Right: WNL for static admittance, tympanometric peak pressure, equivalent volume, and tympanic width("Type A") Left: WNL for static admittance, tympanometric peak pressure, equivalent volume, and tympanic width("Type A") Standard audiometric testing 06610 ABSD supra-aural earphones Good reliability Right: sensorineural hearing loss Left: sensorineural hearing loss Speech recognition thresholds were consistent with hearing thresholds. Word recognition scores, obtained via monitored live voice were: right 100%, left 96% Anitha Ding, CCC-A 12/29/2023 9:55 AM Scan: audiogram documented in this encounter Plan of Treatment Upcoming Encounters Date Type Department Care Team (Late st Contact Info) Description 12/30/2023 10:30 AM EDT Anticoagulation Pharmacy, [address] [place] [address] [place] [address] 12/30/2023 12:40 PM EDT Laboratory Laboratory Scenery [place] [address] [place] [phone] [place], Lab Scenery [address] [place] [address] 12/30/2023 1:45 PM EDT Hem/Onc Treatment Hematology/Oncology Treatment, [place] [address] [place] [phone] [place], Chair 2 Hem Onc Scenery [address] [place] [address] 01/06/2024 2:30 PM EDT Home Visit [facility] [address] [facility] [place] [address] Sulma Seth RN 132 [facility] [place] [address] 01/11/2024 9:00 AM EDT Telemedicine H[facility]ology [facility] Tyree UGARTE [address] [facility] [place] [address] Rosalio Amaral MD [address] [facility] [place] [address] 01/19/2024 3:00 PM EDT Office Visit Cardiology, [facility] 132 [facility] [place] [address] Beth Gibbs CRNP [address] [place] [address] 01/27/2024 10:00 AM EDT Home Visit [place] [facility] [place], [facility] [address] [place] [address] Sulma Seth RN [address] [place] [address] 02/15/2024 1:30 PM EDT Telemedicine H[facility]ology [facility] [place] [address] [facility] [place] [phone] Rosalio Amaral MD [address] [facility] [place] [address] 04/19/2024 9:30 AM EDT Office Visit Cardiology [address] [place] [address] Tim Ruiz PA-C [address] [place] [address] 10/30/2024 1:45 PM EST Office Visit Urology, [facility] [address] [place] [address] Devyn Paniagua MD [address] [address] [place] [address] 01/01/2025 10:20 AM EDT Office Visit Otolaryngology [facility] [address] [place] [address] Haley Aguero PA-C [address] [place] [address] Health Maintenance Due Date Last Done Comments [...] 05/13/2020, 05/22/2019 GFR 06/19/2024 12/19/2023, 04/0 04/2024, 12/15/2023, Additional history exists Diabetic Eye Exam 07/11/2024 07/11/2023, , 07/05/2022, Additional history exists TSH 07/25/2024 07/25/2023, 03/12, 01/31/2023, Additional history exists Albumin/Creatinine Ratio 09/08/202409/08/ 023, 06/22/2023, 05/27/2023, Additional history exists CKD HGB USE SMARTSET 94921 11/13/202411/13, 11/14/2023, 10/28/2023, Additional history exists CKD PHOS USE SMARTSET 22032 11/13/2024 03/0 12/2023, 10/28/2023, 08/16/2023, Additional history [...] this encounter Medical Devices Implanted Type Area Salesforce Trainer Device Identifier Shelf Expiration Date Model / Serial / Lot Port Power Mri W/8fr Cath - [id number] Implanted:Qty: 1 on 09/26/2020 by Simone Michelle MD at OR [facility] Right: Chest CR BARD : PERIPHERAL VASCULAR 10/12/2021 [id number] / / [id number] Description:right IJ Lens Intraoc 19.0 - [id number] - [id number] Implanted:Qty: 1 on 02/03/2021 by Chris Sexton MD at OR [facility] Right: Eye [employer]USCH [employer] LOMB 09/11/2025 [id number] / [id number] / Lens Intraoc 19.0 - [id number] - [id number] Implanted:Qty: 1 on 02/24/2021 by Chris Sexton MD at OR [facility] Left: Eye BAUSCH & LOMB 10/12/2025 [id number] / [id number] / [id number] System Urolift - [id number] Implanted:Qty: 2 on 03/17/2023 by Devyn Paniagua MD at OR [facility] N/A: Urethra [employer] 11/18/2023 [id number] / / [id number] System Urolift - [id number] Implanted:Qty: 3 on 03/17/2023 by Devyn Paniagua MD at OR [facility] N/A: Urethra [employer] 11/03/2023 [id number] / / [id number] documented as of this encounter Procedures Procedure Name Priority Date/Time Associated Diagnosis Comments AUDIOMETRIC RESULT 12/29/2023 AUDIOMETRIC RESULT 12/29/2023 documented in this encounter Results * AUDIOMETRIC RESULT (12/29/2023) 12/29/2023 [facility] * AUDIOMETRIC RESULT (12/29/2023) 12/29/2023 [facility] documented in this encounter Visit Diagnoses Diagnosis Bilateral sensorineural hearing loss- Primary Sensorineural hearing loss, bilateral documented in this encounter Additional Health Concerns [...] and were consensually agreed upon. Care Teams Realtime Court Reporter Relationship Specialty Start Date End Date Jaime Garcia MD [address] [place] [address] [place] [address] PCP - General Family Medicine 10/15/20 documented as of this encounter
--- OUTSIDE RECORDS SUMMARY | 2024-05-13 06:12 | External Medical Summary ---
Author Name Unknown Address Unknown Organization : Laboratory Report Ordering Provider Test Date Status TASNEEM SLAUGHTER 12/30/2023 10:38:25 Final Therapeutic ranges for non-o perative patients:
Prophylaxsis/treatment of DVT: (Range:2.0-3.0)
Treatment of pulmonary embolism:(Range:2.0-3.0)
Prevention of systemic embolism from:
-tissue heart valves
-acute myocardial infarction
-valvular heart disease
-atrial fibrillation
(Range: 2.0-3.0)
Mechanical prosthetic valves: (Range: 2.5-3.5) Observation Date Value Abnormality Reference (Units ) Status INR in Capillary blood by Coagulation assay 12/30/2023 10:38:25 2.7 (INR) Final Performing Location
--- OUTSIDE RECORDS SUMMARY | 2024-05-13 06:12 | External Medical Summary ---
Author Name Unknown Address Unknown Organization K01:LABORATORY [facility] - [address] [place] [address] Laboratory Report Ordering Provider Test Date Status MONIQUE PEREZ 12/30/2023 12:15:34 Final Deficient: <20 ng/mL
Ins ufficient: 20-29 ng/mL
Recommended/Optimum:30-50 ng/mL

Vitamin D intoxication is rare. If suspicious of Vitamin D toxicity, evaluation of serum Calcium and PTH is recommended. Observation Date Value Abnormality Reference (Units ) Status 25-OH Vitamin D total 12/30/2023 12:15:34 41 >19 (ng/mL) Final Performing Location LABORATORY C - [address] [place] [address]
--- OUTSIDE RECORDS SUMMARY | 2024-05-13 06:12 | External Medical Summary ---
Author Name Unknown Address Unknown Organization K01:LABORATORY [facility] [place] - [address] [place] [address] Laboratory Report Ordering Provider Test Date Status MENA MURCIA 12/30/2023 12:15:34 Final Observation Date Value Abnormality Reference (Units ) Status MYCODE SPECIMEN-SST 12/30/2023 12:15:34 Freezing of extracted DNA, whole blood and/or serum. Final Performing Location LABORATORY C - [address] [place] [address]
--- OUTSIDE RECORDS SUMMARY | 2024-05-13 06:12 | External Medical Summary ---
Author Name Unknown Address Unknown Organization K09:LABORATORY [facility] [address] [address] Laboratory Report Ordering Provider Test Date Status MONIQUE PEREZ 12/30/2023 12:15:34 Final Observation Date Value Abnormality Reference (Units ) Status Phosphate 12/30/2023 12:15:34 2.3 Below low normal 2.5 -4.8 (mg/dL) Final Performing Location [facility]ORY [facility] [address]la [place] [address]
--- OUTSIDE RECORDS SUMMARY | 2024-05-13 06:12 | External Medical Summary ---
Author Name Unknown Address Unknown Organization K01:LABORATORY [facility] [place] - [address] [place] [address] Laboratory Report Ordering Provider Test Date Status JONATHAN FISCHER 12/30/2023 12:15:34 Final Observation Date Value Abnormality Reference (Units ) Status Parathyrin.intact [Mass/volume] in Serum or Plasma 12/30/2023 12:15:34 80 Above high normal 15-65 (pg/mL) Final Performing Location LABORATORY [facility] - [address] [place] [address]
--- OUTSIDE RECORDS SUMMARY | 2024-05-13 06:12 | External Medical Summary ---
Author Name Unknown Address Unknown Organization K09:LABORATORY [facility] [address] [address] Laboratory Report Ordering Provider Test Date Status TASNEEM SLAUGHTER 12/30/2023 12:15:34 Final Warfarin Therapy
INR: 2 .0-3.0 conventional anticoagulation
INR: 2.5- 3.5 high intensity anticoagulation Observation Date Value Abnormality Reference (Units ) Status PT 12/30/2023 12:15:34 26.1 Above high normal 11 .6-15.2 (seconds) Final INR 12/30/2023 12:15:34 2.4 Above high normal 0. 8-1.2 Final Performing Location [facility] [place] [address]
--- OUTSIDE RECORDS SUMMARY | 2024-05-13 06:12 | External Medical Summary ---
Author Name Unknown Address Unknown Organization K01:LABORATORY [facility] [place] - [address] [place] [address] Laboratory Report Ordering Provider Test Date Status MONIQUE PEREZ 12/30/2023 12:15:34 Final Observation Date Value Abnormality Reference (Units ) Status Troponin T 12/30/2023 12:15:34 54 Above high normal < =22 (ng/L) Final Performing Location LABORATORY [facility] - [address] [place] [address]
--- OUTSIDE RECORDS SUMMARY | 2024-05-13 06:12 | External Medical Summary | Summary of Care ---
Author Name Unknown Organization [facility] Address [address] [place] [address] Phone [phone] Care Team Providers Care Garage Attendant Name Role Phone Jaime Garcia MD Primary Care Provide r Encounter Details Date Type Department Care Team (Late st Contact Info) Description 12/29/2023 Telephone Family Medicine [address] [place] [phone] Jaime Garcia MD [address] [place] [address] [place] [address] Allergies Active Allergy Reactions Criticality Noted Date [...] Tablet (Zovirax)Indication s:Lambda light chain myeloma ([facility]) Take one tablet once [...] ns:Multiple myeloma not having achieved remission ([facility]) 5 tabs 2 times [...] than 7.0% ([facility]) Take 2 Tablets by mouth in the morning. 180 Tablet 1 3 Active Pen [place] 32G X 4 MM Use as directed. [...] PM) 600 Tablet 3 3 Active Nystatin 898579 UNIT/ML Mouth/Throat SuspensionIndicatio ns:Multiple myeloma in relapse [...] ns:Atrial fibrillation, unspecified type (HCC),Anticoagulati on management encounter,manager intermediate current use of anticoagulant therapy,Paroxysmal atrial [...] you set up appt for patient to [facility] # [place] Anna, Yes we can help pt with the respiratory panel. Would your team like the whole respiratory panel or RSV/COVID/Flu swab? ----- Message ----- From: Anna Daniel RN Sent: 12/28/2023 11:46 AM EDT To: Jaime Garcia MD; # Subject: Can you set up appt for patient to [facility] in f# Hi, Would it be possible [...] Description 12/30/2023 10:30 AM EDT Anticoagulation Pharmacy, [address] [place] [address] [place] [address] 12/30/2023 12:40 PM EDT Laboratory [place] [address] [place] [phone] [place], Lab Scenery [address] [place] [address] 12/30/2023 1:45 PM EDT Hem/Onc Treatment Hematology/Oncology Treatment, [place] [address] [place] [address] [place], Chair 2 Hem Onc Scenery [address] [place] [address] 01/06/2024 2:30 PM EDT [facility] [place] [address] Sulma Seth, [place] [address] [facility] [place] [address] 01/11/2024 9:00 AM EDT Telemedicine Hematology [facility] Tyree UGARTE [address] [place] [address] Rosalio Amaral MD [address] [place] [address] 01/19/2024 3:00 PM EDT Office Visit Cardiology, [facility] 132 [facility] [place] [address] Beth Gibbs CRNP 132 [facility] [place] [address] 01/27/2024 10:00 AM EDT [facility] Visit [facility], [facility] 132 [facility] [place] [address] Sulma Seth, [place] [address] [facility] [place] [address] 02/15/2024 1:30 PM EDT Telemedicine Hematology [facility] Tyree UGARTE [address] [place] [address] Rosalio Amaral MD [address] [place] [address] 04/19/2024 9:30 AM EDT Office Visit Cardiology [address] [place] [address] Tim Ruzi PA-C [address] [place] [address] 10/30/2024 1:45 PM EST Office Visit Urology, [facility] [address] [place] [address] Devyn Paniagua MD [address] [place] [address] Health Maintenance Due Date Last Done Comments [...] Additional history exists CKD HGB USE SMARTSET 34651 11/13/202411/134, 11/14/2023, 10/28/2023, Additional history exists CKD PHOS USE SMARTSET 01848 11/13/2024 03/0 12/2023, 10/28/2023, 08/16/2023, Additional history [...] Medical Devices Implanted Type Area Director Of Convention Services Device Identifier Shelf Expiration Date Model / Serial / Lot Port Power Mri W/8fr Cath - [id number] Implanted:Qty: 1 on 09/26/2020 by Simone Michelle MD at OR [facility] Right: Chest CR BARD : PERIPHERAL VASCULAR 10/12/2021 [id number] / / [id number] Description:right IJ Lens Intraoc 19.0 - [id number] - [id number] Implanted:Qty: 1 on 02/03/2021 by Chris Sexton MD at OR [facility] Right: Eye [employer]USCH [employer] LOMB 09/11/2025 [id number] / [id number] / Lens Intraoc 19.0 - [id number] - [id number] Implanted:Qty: 1 on 02/24/2021 by Chris Sexton MD at OR [facility] Left: Eye BAUSCH [employer] LOMB 10/12/2025 [id number] / [id number] / [id number] System Urolift - [id number] Implanted:Qty: 2 on 03/17/2023 by Devyn Paniagua MD at OR [facility] N/A: Urethra [employer] 11/18/2023 [id number] / / [id number] System Urolift - [id number] Implanted:Qty: 3 on 03/17/2023 by Devyn Paniagua MD at OR [facility] N/A: Urethra [employer] 11/03/2023 [id number] / / [id number] documented as of this encounter Additional Health [...] and were consensually agreed upon. Care Teams Garage Attendant Relationship Specialty Start Date End Date Jaime Garcia MD [address] [place] [address] [place] [address] PCP - General Family Medicine 10/15/20 documented as of this encounter
--- OUTSIDE RECORDS SUMMARY | 2024-05-13 06:12 | External Medical Summary ---
Author Name Unknown Address Unknown Organization K09:[facility]ATORY [place] [address] Laboratory Report Ordering Provider Test Date Status MONIQUE PEREZ 12/30/2023 12:15:34 Final Observation Date Value Abnormality Reference (Units ) Status SYNC LEUKOCYTES IN BLOOD BY AUTOMATED COUNT 12/30/2023 12:15:34 6.54 4.00-10.80 (K/uL) Final Segs 12/30/2023 12:15:34 74.7 40.0-75.0 (%) Final Lymphs % 12/30/2023 12:15:34 8.0 Below low normal 18.0-42.0 (%) Final Monos 12/30/2023 12:15:34 14.1 Above high normal 1.0-11.0 (%) Final Eosinophils 12/30/2023 12:15:34 2.9 0.0-6.0 (%) Final Basos 12/30/2023 12:15:34 0.3 0.0-2.0 (%) Final Absolute Segs 12/30/2023 12:15:34 4.89 1.80-7.70 (K/uL) Final Lymphs, absolute 12/30/2023 12:15:34 0.52 Below low normal 1.00-4.80 (K/ul) Final Monos, Abs 12/30/2023 12:15:34 0.92 0.00-1.10 (K/uL) Final Eos, Abs 12/30/2023 12:15:34 0.19 0.00-0.70 (K/uL) Final Basos, Abs 12/30/2023 12:15:34 0.02 0.00-0.20 (K/uL) Final Performing Location [facility] [place] [address]
--- OUTSIDE RECORDS SUMMARY | 2024-05-13 06:12 | External Medical Summary ---
Author Name Unknown Address Unknown Organization K01:LAB[facility]ATORY [facility] - [address] [place] [address] Laboratory Report Ordering Provider Test Date Status MONIQUE PEREZ 12/30/2023 12:15:34 Final Observation Date Value Abnormality Reference (Units ) Status IgG 12/30/2023 12:15:34 241 Below low normal 700 -1600 (mg/dL) Final IgA 12/30/2023 12:15:34 55 Below low normal 70- 400 (mg/dL) Final IgM 12/30/2023 12:15:34 <5 Below low normal 40- 230 (mg/dL) Final Performing Location LABORATORY [facility] - [address] [place] [address]
--- OUTSIDE RECORDS SUMMARY | 2024-05-13 06:12 | External Medical Summary ---
Author Name Unknown Address Unknown Organization K01:LABORATORY [facility] [place] [place] - [address] [place] [address] Laboratory Report Ordering Provider Test Date Status MONIQUE PEREZ 12/30/2023 12:22:59 Final Observation Date Value Abnormality Reference (Units) Status PARAPROTEIN NORMAL/ABNORMAL 12/30/2023 12:22:59 Abnormal Abnormal Normal Final Protein, Urine 12/30/2023 12:22:59 314 (mg/dL) Final Immunofixation for Urine Narrative 12/30/2023 12:22:59 Abnormal, monoclonal free lambda light chains present (Bence Patterson protein). Final Performing Location LABORATORY [facility] [place] [place] - [address] [place] [address]
--- OUTSIDE RECORDS SUMMARY | 2024-05-13 06:12 | External Medical Summary | Summary of Care ---
Author Name Unknown Organization [facility] Address [address] [place] [address] Phone [phone] Care Team Providers Care Page Designer Name Role Phone Jaime Garcia MD Primary Care Provide r Reason for Visit * Reason Comments NEW PATIENT Muffled hearing * Evaluate & Treat - Unlimited Visits (Within 30 days (routine)) - Authorized Specialty Diagnoses / Procedures Referred By Darin lui Referred To Contact Otolaryngology Diagnoses Recurrent sinusitis Jaime Garcia MD [address] [place] [address] [place] [id number] Referral ID Status Reason Start Date Expiration Date Visits Requested Visits Authorized [id number] Authorized Specialty Services Required 10/18/[phone] Encounter Details Date Type Department Care Team (Latest Contact Info) Description 12/29/2023 9:00 AM EDT [facility] [address] [place] [address] Haley Aguero PA-C [address] [place] [address] Asymmetrical sensorineural hearing loss* Allergies Active Allergy [...] of less than 7.0% ([facility]) Use as directed daily. Test once [...] morning. 180 Tablet 1 3 Active Pen [place]ois 32G X 4 MM Use as directed. [...] long-term current use of insulin ([facility]) Use as directed to check blood sugars daily. Change every 10 days 9 Each 3 3 Active Midodrine HCl 10 MG Oral Tablet (Proamatine)Indicat ions:takes 1-3 tabs depending on bp as needed Take 2 tablet shortly before or upon rising in the morning, at midday, and in the late afternoon (not later than 6 PM) 600 Tablet 3 3 Active Nystatin 920222 UNIT/ML Mouth/Throat SuspensionIndicatio ns:Multiple myeloma in relapse [...] not included. 12/29/2023 Nursing Notes: Irineo Stanford, [facility] 12/29/23 0910 Signed Chief Complaint Patient presents [...] performed by Simone Michelle MD at OR [facility] COLONOSCOPY, DIAGNOSTIC (RECTUM) 09/09/2021 normal bx / COLONOSCOPY FLEXIBLE PROXIMAL DIAGNOSTIC performed by Philip Graham MD at ENDOSCOPY [facility] CYSTOURETHROSCOPY, W/ TRANSPROSTATIC IMPLANT N/A 03/17/2023 CYSTOURETHROSCOPY, WITH INSERTION OF PERMANENT ADJUSTABLE TRANSPROSTATI IMPLANT; SINGLE IMPLANT performed by Devyn Paniagua MD at OR [facility] EGD, FLEXIBLE, DIAGNOSTIC 10/15/2019 normal bx / ESOPHAGOGASTRODUODENOSCOPY (EGD), FLEXIBLE, TRANSORAL, DIAGNOSTIC performed by Mellissa Mari MD at ENDOSCOPY [facility] EGD, FLEXIBLE, DIAGNOSTIC N/A 05/06/2023 esophageal plaques, biopsies confirm rebeca/EGD/MN EGD, W/ENDOSCOPIC US N/A 05/06/2023 multiple cystic lesion pancreatic head and body/EUS/MN INFORMATION vasectomy reversal INFORMATION status post autologous stem cell transplantation in 2015 - per cardiology note INSER TUNN ACC DEV;5 YRS/OLDER N/A 09/26/2020 INSERT TUNNELED CENTRAL VENOUS ACCESS WITH SUBQ PORT performed by Simone Michelle MD at OR [facility] MRI L SPINE W WO CONTRAST [place], was told he had a herniated disc REMOVE CATARACT, INSERT LENS PROSTH Right 02/03/2021 RIGHT EXTRACAPSULAR CATARACT REMOVAL WITH INTRAOCULAR LENS performed by Chris Sexton MD at [facility] REMOVE CATARACT, INSERT LENS PROSTH Left 02/24/2021 LEFT EXTRACAPSULAR CATARACT REMOVAL WITH INTRAOCULAR LENS performed by Chris Sexton MD at OR [facility] VASECTOMY 1999 Medications Current Outpatient Medications Medication [...] in the morning. 180 Tablet 1 Pen Dubois 32G X 4 MM Use as directed. [...] open or break. 360 Capsule 3 Nystatin 416733 UNIT/ML Mouth/Throat Suspension Swish and swallow 5 [...] 12/29/2023 1:30 PM EDT Office Visit [facility] [address] [facility] [place] [address] Lesly Holcomb Au.D. 132 [facility] [place] [address] Bilateral sensorineural hearing loss* 12/30/2023 10:30 AM EDT Anticoagulation Pharmacy, [address] [place] [address] [place] [address] 12/30/2023 12:40 PM EDT Laboratory Laboratory [facility] [place] [address] [place] [phone] [place], Lab Scenery [address] [place] [address] 12/30/2023 1:45 PM EDT Hem/Onc Treatment Hematology/Oncolog y Treatment, [place] [address] [place] [address] [place], Chair 2 Hem Onc Scenery [address] [place] [address] 01/06/2024 2:30 PM EDT Home Visit [facility] [place] [address] Sulma Seth, RN [address] [place] [address] 01/11/2024 9:00 AM EDT Telemedicine [facility] [address] [facility] [place] [address] Rosalio Amaral MD [address] [place] [address] 01/19/2024 3:00 PM EDT Office Visit [facility] [address] [place] [address] Beth Gibbs CRNP [address] [place] [address] 01/27/2024 10:00 AM EDT Home Visit [facility] [address] [place] [address] Sulma Seth, RN [address] [place] [address] 02/15/2024 1:30 PM EDT Telemedicine [facility] [address] [facility] [place] [address] Rosalio Amaral MD [address] [facility] [place] [address] 04/19/2024 9:30 AM EDT Office Visit Cardiology [address] [place] [address] Tim Ruiz PA-C [address] [place] [address] 10/30/2024 1:45 PM EST Office Visit Urology, [facility] [address] [place] [address] Devyn Paniagua MD [address] [address] [place] [address] 01/01/2025 10:20 AM EDT Office Visit [facility] [address] [place] [address] Haley Aguero PA-C [address] [place] [address] Scheduled Referrals Name Type Priority Associated Diagnoses [...] Additional history exists CKD HGB USE SMARTSET 54533 11/13/202411/13, 11/14/2023, 10/28/2023, Additional history exists CKD PHOS USE SMARTSET 17219 11/13/2024 03/0 12/2023, 10/28/2023, 08/16/2023, Additional history [...] this encounter Medical Devices Implanted Type Area Primary Health Organisation Manager Device Identifier Shelf Expiration Date Model / Serial / Lot Port Power Mri W/8fr Cath - [id number] Implanted:Qty: 1 on 09/26/2020 by Simone Michelle MD at OR [facility] Right: Chest CR BARD : PERIPHERAL VASCULAR 10/12/2021 [id number] / / [id number] Description:right IJ Lens Intraoc 19.0 - [id number] - [id number] Implanted:Qty: 1 on 02/03/2021 by Chris Sexton MD at OR [facility] Right: Eye [employer] 09/11/2025 [id number] / [id number] / Lens Intraoc 19.0 - [id number] - [id number] Implanted:Qty: 1 on 02/24/2021 by Chris Sexton MD at OR [facility] Left: Eye [employer]CH [employer] LOMB 10/12/2025 [id number] / [id number] / [id number] System Urolift - [id number] Implanted:Qty: 2 on 03/17/2023 by Devyn Paniagua MD at OR [facility] N/A: Urethra [employer] 11/18/2023 [id number] / / [id number] System Urolift - [id number] Implanted:Qty: 3 on 03/17/2023 by Devyn Paniagua MD at OR [facility] N/A: Urethra [employer] 11/03/2023 [id number] / / [id number] documented as of this encounter Visit Diagnoses Diagnosis Asymmetrical sensorineural hearing loss- Primary Sensorineural hearing loss, asymmetrical Bilateral sensorineural hearing loss- Primary Sensorineural hearing [...] and were consensually agreed upon. Care Teams Page Designer Relationship Specialty Start Date End Date Jaime Garcia MD [address] [place] [address] [place] [id number] PCP - General Family Medicine 10/15/20 documented as of this encounter
--- OUTSIDE RECORDS SUMMARY | 2024-05-13 06:12 | External Medical Summary ---
Author Name Unknown Address Unknown Organization K09:[facility] [place] [address] Laboratory Report Ordering Provider Test Date Status MONIQUE PEREZ 12/30/2023 12:15:34 Final Observation Date Value Abnormality Reference (Units ) Status BUN 12/30/2023 12:15:34 13 6-20 (mg/dL) Final Creatinine 12/30/2023 12:15:34 1.4 Above high normal 0.6-1.2 (mg/dL) Final Glomerular filtration rate/1.73 sq M.predicted [Volume Rate/Area] in Serum, Plasma or Blood by Creatinine-based formula (CKD-EPI) 12/30/2023 12:15:34 61 >=60 (mL/min) Final eGFR is calculated based on the CKD-EPI 2020 equation Sodium 12/30/2023 12:15:34 138 135-146 (m mol/L) Final Potassium 12/30/2023 12:15:34 5.0 3.5-5.1 (m mol/L) Final Cl 12/30/2023 12:15:34 102 98-107 (mm ol/L) Final CO2 12/30/2023 12:15:34 27 22-32 (mmo l/L) Final Anion gap 12/30/2023 12:15:34 9 7-15 (mmol /L) Final Glucose 12/30/2023 12:15:34 88 70-120 (mg /dL) Final Albumin 12/30/2023 12:15:34 4.0 3.8-5.0 (g /dL) Final AST (Aspartate aminotransferase) 12/30/2023 12:15:34 17 10-50 (U/L) Fin al Alk Phos 12/30/2023 12:15:34 174 Above high normal 35 -130 (U/L) Final Bilirubin, Total 12/30/2023 12:15:34 0.7 <=1 .2 (mg/dL) Final Calcium 12/30/2023 12:15:34 10.1 8.4-10.2 ( mg/dL) Final Protein 12/30/2023 12:15:34 5.7 Below low normal 6.0 -8.3 (g/dL) Final ALT (Alanine aminotransferase) 12/30/2023 12:15:34 8 Below low normal 10-50 (U/L) Final Performing Location [facility] [place] [address]
--- OUTSIDE RECORDS SUMMARY | 2024-05-13 06:13 | External Medical Summary | Summary of Care ---
Author Name Unknown Organization [facility] Address [address] [place] [address] Phone [phone] Care Team Providers Care Wildland Firefighter Name Role Phone Jaime Garcia MD Primary Care Provide r Reason for Visit * Reason Onset Date Comments Advice 12/13/2023 Encounter Details Date Type Department Care Team (Late st Contact Info) Description 12/13/2023 Telephone Family Medicine [address] [phone] Jaime Garcia MD [address] [place] [address] [place], [place] [phone] Advice Allergies Active Allergy Reactions Criticality Noted Date Comments Atorvastatin Muscle pain High 03/30/2019 Ezetimibe Muscle pain High 01/25/2020 documented as of this encounter (statuses as of 12/13/2023) Medications Medication Sig Dispensed Refills Start Date [...] Oral Tablet (Zovirax)Indication s:Lambda light chain myeloma ([facility]) Take one tablet once daily 180 [...] (Decadron)Indicatio ns:Multiple myeloma not having achieved remission ([facility]) 5 tabs 2 times monthly 10 [...] Information Patient taking differently: 50 mcg Oral [id number], Reported on 04/14/2023 Finasteride 5 MG Oral [...] morning. 180 Tablet 1 3 Active Pen [place] 32G X 4 MM Use as directed. [...] PM) 600 Tablet 3 3 Active Nystatin 308638 UNIT/ML Mouth/Throat SuspensionIndicatio ns:Multiple myeloma in relapse [...] ns:Atrial fibrillation, unspecified type (HCC),Anticoagulati on management encounter,penitentiary current use of anticoagulant therapy,Paroxysmal atrial fibrillation [...] as of this encounter (statuses as of 12/13/2023) Active Problems Problem Noted Date Diagnosed Date [...] as of this encounter (statuses as of 12/13/2023) Resolved Problems Problem Noted Date Diagnosed Date [...] as of this encounter (statuses as of 12/13/2023) Immunizations Name Administration Dates Next Due COVID-19, [...] Telephone Encounter - Natasha Aguilar RN - 12/13/2023 1:50 PM EDT Spoke to patient he states he does get dizzy when he sits or stands up too quickly. Patient is not drinking enough, patient states he has had some lemonade this morning, but only voided once. I spoketo Dr. Garcia and patient needs to come in for a clinic visit and he needs to stay hydrated. Patient denies any chest pain or sob. Counseled patient importance of increasing fluids, I offered patient sooner appointment but patient states he is not able to come due to being in [facility]. Patient did have a hospital discharge appointment scheduled for yesterday [facility], looks like patient canceled appointment via text. Patient unsure if he did that by mistake. Appointment made and patient to call if symptoms worsen or any other complaints. Patient ok with advice. Reason for Call: Advice Contact: Telephone Call Contact Type: Advice Outcome: see note Face to face time spent with Patient (minutes): 0 Total Time including non face to face (minutes): 20 documented in this encounter Plan of Treatment Upcoming Encounters Date Type Department Care Team (Late st Contact Info) Description 12/16/2023 8:30 AM EDT Home Visit [facility] [address] [place] [address] Sulma Seth, RN [address] [place] [address] 12/23/2023 11:40 AM EDT Office Visit Family Medicine [address] [place] [phone] Jaime Garcia MD [address] [place] [address] [place] [address] 12/28/2023 9:50 AM EDT Anticoagulation Pharmacy, [address] [place] [address] [place] [address] 12/29/2023 9:00 AM EDT Office Visit Otolaryngology [facility] [address] [place] [address] Haley Aguero PA-C [address] [place] [address] 01/06/2024 2:30 PM EDT Home Visit [facility], [facility] [address] [place] [address] Sulma Seth, BOBBY [address] [place] [address] 01/11/2024 9:00 AM EDT Telemedicine [facility] Tyree UGARTE [address] [place] [address] Rosalio Amaral MD [address] [place] [address] 01/19/2024 3:00 PM EDT Office Visit Cardiology, [facility] [address] [place] [address] Beth Gibbs CRNP [address] [place] [address] 02/15/2024 1:30 PM EDT Telemedicine [facility] [place] [address] [place] [address] Rosalio Amaral MD [address] [place] [address] 03/08/2024 9:00 AM EDT Office Visit Cardiology [address] [place] [address] Tim Ruiz PA-C [address] [place] [address] 10/30/2024 1:45 PM EST Office Visit Urology, [facility] [address] [place] [address] Devyn Paniagua MD [address] [place] [address] [place] [address] Health Maintenance Due Date Last Done Comments Cologuard 2015 Fecal Occult Blood Test 2015 Sigmoidoscopy 2015 Depression Screening 01/05/2022 01/05/2021 Diabetic Foot Exam 12/14/2022 12/14/2021, 0 10/15/2020, 06/25/2019 COVID-19 Vaccine ( season) 2023 10/06/2021, 06/24/2021, 06/23/2021 HbA1c 01/05/2024 07/06/2023, 080 11/2022, 03/29/2023, Additional history exists GFR 05/16/2024 [...] Additional history exists CKD HGB USE SMARTSET 31825 11/13/202411/13, 11/14/2023, 10/28/2023, Additional history exists CKD PHOS USE SMARTSET 24406 11/13/2024 03/0 12/2023, 10/28/2023, 08/16/2023, Additional history [...] this encounter Medical Devices Implanted Type Area Corrections Unit Supervisor Device Identifier Shelf Expiration Date Model / Serial / Lot Port Power Mri W/8fr Cath - [id number] Implanted:Qty: 1 on 09/26/2020 by Simone Michelle MD at OR [facility] Right: Chest CR BARD : PERIPHERAL VASCULAR 10/12/2021 [id number] / / [id number] Description:right IJ Lens Intraoc 19.0 - [id number] - [id number] Implanted:Qty: 1 on 02/03/2021 by Chris Sexton MD at OR [facility] Right: Eye [employer] 09/11/2025 [id number] / [id number] / Lens Intraoc 19.0 - [id number] - [id number] Implanted:Qty: 1 on 02/24/2021 by Chris Sexton MD at OR [facility] Left: Eye [employer]OM[employer] 10/12/2025 [id number] / [id number] System Urolift - [id number] Implanted:Qty: 2 on 03/17/2023 by Devyn Paniagua MD at OR [facility] N/A: Urethra [employer] 11/18/2023 WJ014-7 / / [id number] System Urolift - [id number] Implanted:Qty: 3 on 03/17/2023 by Devyn Paniagua MD at OR [facility] N/A: Urethra [employer] 11/03/2023 [id number] / / [id number] documented as of this encounter Additional Health Concerns Infection Onset Date Last Indicated Resolved Time Salmonella 09/14/2023 09/14/2023 documented as of this encounter Advance Directives Latest Code Status on File Code Status Date Activated Date Inactivated Comments Full Code 03/17/2023 8:20 AM 03/17/2023 1:36 PM This or dlishad reflects the patients wishes and were consensually [...] and were consensually agreed upon. Care Teams Wildland Firefighter Relationship Specialty Start Date End Date Jaime Garcia MD [address] [place] [address] [place] [phone] PCP - General Family Medicine 10/15/20 documented as of this encounter
--- OUTSIDE RECORDS SUMMARY | 2024-05-13 06:13 | External Medical Summary | Summary of Care ---
Author Name Unknown Organization [facility] Address [address] [place] [address] Phone [phone] Care Team Providers Care Operations Inspector Name Role Phone Eloina Day MD Primary Care Provide r Reason for Visit * Reason Onset Date Comments Medication Refill 12/16/2023 Encounter Details Date Type Department Care Team (Late st Contact Info) Description 12/16/2023 Refill Family Medicine [address] [phone] Eloina Day MD [address] [place] [address] [place] [address] Acute bronchitis, antibiotics not indicated Allergies Active Allergy Reactions Criticality Noted Date Comments Atorvastatin Muscle pain High 03/30/2019 Ezetimibe Muscle pain High 01/25/2020 documented as of this encounter (statuses as of 12/19/2023) Medications Medication Sig Dispensed Refills Start Date [...] Oral Tablet (Zovirax)Indicatio ns:Lambda light chain myeloma ([facility]) Take one tablet once daily [...] Additional Information Patient not taking.Reported on 12/16/2023 Levothyroxine Sodium 50 MCG Oral Tablet (Levoxyl) TAKE 1 TABLET BY MOUTH DAILY AT LEAST 30 MINUTES PRIOR TO FIRST MEAL OF THE DAY OR OTHER MEDICATIONS 90 Tablet 3 3 01/11/20 24 Active Additional Information Patient taking differently: 50 mcg Oral [id number], Reported on 04/14/2023 Finasteride 5 MG Oral [...] morning. 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 54 g 1 4 Active Albuterol Sulfate HFA 108 (90 Base) MCG/ACT Inhalation Aerosol SolutionIndication s:Acute bronchitis, antibiotics not indicated Inhale 2 Puffs by mouth every 6 hours as needed for Cough or Shortness of Breath. 54 g 1 1 12/16/19 24 Discontinu ed(Refill) documented as of this encounter (statuses as of 12/19/2023) Active Problems Problem Noted Date Diagnosed Date [...] 2 Current chronic use of systemic steroids 07/08/2 021 Peripheral neuropathic pain 01/05/2021 Statin intolerance [...] as of this encounter (statuses as of 12/19/2023) Resolved Problems Problem Noted Date Diagnosed Date [...] as of this encounter (statuses as of 12/19/2023) Immunizations Name Administration Dates Next Due COVID-19, [...] Telephone Encounter - Eloina Day MD - 12/19/2023 7:59 AM EDT Signed Prescriptions: Disp Refills Albuterol Sulfate HFA 108 (90 Base) MCG/AC*54 g 1 Sig: Inhale 2 Puffs by mouth every 6 hours as needed for Cough or Shortness of Breath. Authorizing Provider: ELOINA DAY * Telephone Encounter - Simone Lozano [facility] - 12/17/2023 3:11 AM EDTPending Prescriptions: Disp Refills Albuterol Sulfate HFA 108 (90 Base) MCG/AC*54 g 1 Sig: Inhale 2 Puffs by mouth every 6 hours as needed for Cough or Shortness of Breath. * Telephone Encounter - Simone Lozano [facility] - 12/17/2023 3:06 AM EDT Request for inhaler last ordered 2 years ago for an acute condition. Recent phone advice given 12/13/23 with possible dehydration, dizziness on standing from sitting position. Was unable to come in forOV. Will pend order for review marking it an urgent request due to pt having multiple disease states. Simone Lozano [facility] Clinical Pharmacist Telepharmacy [phone] 12/17/2023 3:11 AM documented in this encounter Plan of Treatment Upcoming Encounters Date Type Department Care Team (Late st Contact Info) Description 12/23/2023 11:40 AM EDT Office Visit Family Medicine [address] [place] [phone] Eloina Day MD [address] [place] [address] [place] [address] 12/28/2023 9:50 AM EDT Anticoagulation Pharmacy, [address] [place] [address] [place] [address] 12/29/2023 9:00 AM EDT Office Visit Otolaryngology [facility] [address] [place] [address] Haley Aguero PA-C [address] [place] [address] 01/06/2024 2:30 PM EDT [facility] [address] [place] [address] Sulma Seth, BOBBY [address] [place] [address] 01/11/2024 9:00 AM EDT Telemedicine [facility] [address] [facility] [place] [address] Rosalio Amaral MD [address] [facility] [place] [address] 01/19/2024 3:00 PM EDT Office Visit Cardiology, [facility] [address] [place] [address] Beth Gibbs CRNP [address] [place] [address] 01/27/2024 10:00 AM EDT [facility] [address] [place] [address] Sulma Seth, RN [address] [place] [address] 02/15/2024 1:30 PM EDT Telemedicine [facility], [place] [address] [place] [address] Rosalio Amaral MD [address] [facility] [place] [address] 03/08/2024 9:00 AM EDT Office Visit Cardiology [address] [place] [address] Tim Ruiz PA-C [address] [place] [address] 10/30/2024 1:45 PM EST Office Visit Urology, [facility] [address] [place] [address] Devyn Paniagua MD [address] [place] [address] [place] [address] Health Maintenance Due Date Last Done Comments Cologuard 2015 Fecal Occult Blood Test 2015 Sigmoidoscopy 2015 Depression Screening 01/05/2022 01/05/2021 Diabetic Foot Exam 12/14/2022 12/14/2021, 0 10/15/2020, 06/25/2019 COVID-19 Vaccine ( season) 2023 10/06/2021, 06/24/2021, 06/23/2021 HbA1c 01/05/2024 07/06/2023, 08/0 11/2022, 03/29/2023, Additional history exists GFR 05/16/2024 11/14/2023, 030 09/2023, 11/11/2023, Additional history exists Pneumococcal Vaccine: Pediatrics (0 to 5 Years) and At-Risk Patients (6 to 64 Years) (3 of 3 - PPSV23 or PCV20) 05/22/2024 05/13/2020, 05/22/2019 Diabetic Eye Exam 07/11/2024 07/11/2023, , 07/05/2022, Additional history exists TSH 07/25/2024 07/25/2023, 03/12, 01/31/2023, Additional history exists Albumin/Creatinine Ratio 09/08/2024 023, 06/22/2023, 05/27/2023, Additional history exists CKD HGB USE SMARTSET 76793 11/13/202411/13, 11/14/2023, 10/28/2023, Additional history exists CKD PHOS USE SMARTSET 69814 11/13/2024 03/0 12/2023, 10/28/2023, 08/16/2023, Additional history [...] this encounter Medical Devices Implanted Type Area Pharmacognosist Device Identifier Shelf Expiration Date Model / Serial / Lot Port Power Mri W/8fr Cath - [id number] Implanted:Qty: 1 on 09/26/2020 by Simone Michelle MD at OR [facility] Right: Chest CR BARD : PERIPHERAL VASCULAR 10/12/2021 [id number] / / [id number] Description:right IJ Lens Intraoc 19.0 - [id number] - [id number] Implanted:Qty: 1 on 02/03/2021 by Chris Sexton MD at OR [facility] Right: Eye BAUSCH & LOMB 09/11/2025 [id number] / [id number] / Lens Intraoc 19.0 - [id number] - [id number] Implanted:Qty: 1 on 02/24/2021 by Chris Sexton MD at OR [facility] Left: Eye BAUSCH & LOMB 10/12/2025 [id number] / [id number] System Urolift - [id number] Implanted:Qty: 2 on 03/17/2023 by Devyn Paniagua MD at OR [facility] N/A: Urethra [employer] 11/18/2023 FE595-8 / / [id number] System Urolift - [id number] Implanted:Qty: 3 on 03/17/2023 by Devyn Paniagua MD at OR [facility] N/A: Urethra [employer] 11/03/2023 [id number] / / [id number] documented as of this encounter Visit Diagnoses Diagnosis Acute bronchitis, antibiotics not indicated Acute bronchitis documented in this encounter Additional Health Concerns [...] and were consensually agreed upon. Care Teams Operations Inspector Relationship Specialty Start Date End Date Eloina Day MD [address] [place] [address] [place] [address] PCP - General Family Medicine 10/15/20 documented as of this encounter
--- OUTSIDE RECORDS SUMMARY | 2024-05-13 06:13 | External Medical Summary | Summary of Care ---
Author Name Unknown Organization [facility] Address [address] [place] [address] Phone [phone] Care Team Providers Care Sap Security Architect Name Role Phone Jaime Garcia MD Primary Care Provide r Reason for Visit * Reason Comments [facility]: Maintenance Encounter Details Date Type Department Care Team (Late st Contact Info) Description 12/16/2023 8:30 AM EDT [facility] [place] [address] Sulma Seth, RN [address] [place] [address] Allergies Active Allergy Reactions Criticality Noted Date [...] less than 7.0% ([facility]) Use as directed daily. Test once daily DxE11.9 100 Strip 5 1 Active LancetsIndications :Type 2 diabetes mellitus with hemoglobin A1c goal of less than 7.0% ([facility]) Test once daily DxE11.9. 100 Each 5 1 Active Acyclovir 400 MG Oral Tablet (Zovirax)Indicatio ns:Lambda light chain myeloma ([facility]) Take one tablet once daily [...] Information Patient taking differently: 50 mcg Oral [id number], Reported on 04/14/2023 Finasteride 5 MG Oral [...] morning. 180 Tablet 1 3 Active Pen [place] 32G X 4 MM Use as directed. [...] PM) 600 Tablet 3 3 Active Nystatin 894735 UNIT/ML Mouth/Throat SuspensionIndicati ons:Multiple myeloma in relapse [...] Sign Reading Time Taken Comments Blood Pressure 92/62 12/16/2023 1:52 PM EDT Pulse 92 12/16/2023 1:52 PM EDT Temperature 36.6 C (97.9 F) 12/16/2023 1:52 PM ED T Respiratory Rate 18 12/16/2023 1:52 PM EDT Oxygen Saturation 94% 12/16/2023 1:52 PM EDT Inhaled Oxygen Concentration - - Weight - - Height - - Body Mass Index - - documented in this encounter Progress Notes * Sulma Seth RN - 12/16/2023 12:57 PM EDT [facility] Urology Visit Date: 12/16/2023 Time: 12:57 PM Name: Jerardo Ochoa Jr. : 1970 Current Concerns: Patient seen for JERALD#1- s/p [facility] stay related to bilateral pleural effusion. Presented with SOB. Discharged home 12/07. Scheduled for Car-T cell transplant- To [facility]- february 07- will receive chemo with admit 02/11- will stay for approximately 4 weeks at the cousins home. Recent fall causing small abrasion on his back- denied hitting head. Issues with hypotension- dehydration. Taking Midodrine as prescribed. Pushing fluids. VS wnl Lungs clear but diminished Sob with moderate exertion No LE edema noted Taking Torsemide prn Voiding without difficulty Bowels wnl- per report Appetite fair- poor. States his taste has changed but is trying Trying to drink enough fluids to avoid dehydration Problems/Symptoms: Review of Systems Constitutional: Negative. HENT: Negative. Eyes: Negative. Respiratory: Positive for shortness of breath. Cardiovascular: Negative. Gastrointestinal: Negative. Genitourinary: Negative. Musculoskeletal: Negative. Skin: Negative. Neurological: Negative. Hematological: Negative. Psychiatric/Behavioral: Negative. Physical Exam: BP 92/62 (BP Site: Right Arm, BP Position: Sitting, BP Cuff Size: Regular) | Pulse 92 | Temp 36.6 C (97.9 F) (Tympanic) | Resp 18 | SpO2 94% Pain 3 Physical Exam Constitutional: Appearance: Normal appearance. Cardiovascular: [...] and Affect: Mood normal. Behavior: Behavior normal. [facility]-10 Completed this Visit: Yes. [facility]-10: Reason Completed: [facility] Fall Risk Assessment Tool Age 65+: Yes (12/16/23 1300) Diagnosis (3 or more co-existing): Yes (12/16/231299) Prior history of falls within 3 months: Yes (12/16/231299) Incontinence: No (12/16/231299) Visual impairment: Yes (12/16/231299) Impaired functional mobility: Yes (12/16/231299) Environmental hazards: No (12/16/231299) Poly Pharmacy (4 or more prescriptions - any type): Yes (12/16/231299) Pain affecting level of function: No (12/16/231299) Cognitive impairment: No (12/16/231299) Score - a score of 4 or more is considered at risk for fallin (12/16/231299) [facility]-10 Interventions: Fall education provided, reviewed/provided Fall brochure Treatment/Plan: Continue medications as prescribed Keep all upcoming MD appointments Fall precautions Push fluids Frequent high protein snacks RN CM follow up in 6 weeks. Home Interventions Provided: Reinforced current Plan of Care, including self-management and medication regimen Patient Needs to Remember: Call [facility] with any medical concerns/ red flag Referrals Needed: N/a Follow Up: Is there cellular connectivity/connectivity in the home? Yes Does the patient have internet in the home? Yes Patient encouraged to call the intake phone number for all urgent but not emergent issues. Scheduled to follow up with patient in 6 weeks. Sulma Ellis RN 12/16/2023 12:57 PM documented in this encounter Plan of Treatment Upcoming Encounters Date Type Department Care Team (Late st Contact Info) Description 12/23/2023 11:40 AM EDT Office Visit Family Medicine [address] [place] [phone] Jaime Garcia MD [address] [place] [address] [place] [address] 12/28/2023 9:50 AM EDT Anticoagulation Pharmacy, [address] [place] [address] [place] [address] 12/29/2023 9:00 AM EDT Office Visit Otolaryngology [facility] [address] [facility] [place], [place] [address] Haley Aguero PA-C [address] [facility] [place] [address] 01/06/2024 2:30 PM EDT [facility], [facility] [address] [facility] [place] [address] Sulma Seth RN [address] [facility] [place] [address] 01/11/2024 9:00 AM EDT Telemedicine [facility] [place] [address] [place] [address] Rosalio Amaral MD [address] [place] [address] 01/19/2024 3:00 PM EDT Office Visit Cardiology, [facility] [address] [facility] [place], [place] [address] Beth Gibbs CRNP [address] [facility] [place] [address] 01/27/2024 10:00 AM EDT [facility] [address] [facility] [place] [address] Sulma Seth RN [address] [facility] [place] [address] 02/15/2024 1:30 PM EDT Telemedicine [facility] [place] [address] [place] [address] Rosalio Amaral MD [address] [place] [address] [place] [address] 03/08/2024 9:00 AM EDT Office Visit Cardiology [address] [place] [address] Tim Ruiz PA-C [address] [place] [address] 10/30/2024 1:45 PM EST Office Visit Urology, [facility] [address] [place] [address] Devyn Paniagua MD [address] [place] [address] [place] [phone] Health Maintenance Due Date Last Done Comments [...] Additional history exists CKD HGB USE SMARTSET 51049 11/13/202411/13, 11/14/2023, 10/28/2023, Additional history exists CKD PHOS USE SMARTSET 48739 11/13/2024 03/0 12/2023, 10/28/2023, 08/16/2023, Additional history [...] encounter Medical Devices Implanted Type Area Sound Engineer Device Identifier Shelf Expiration Date Model / Serial / Lot Port Power Mri W/8fr Cath - [id number] Implanted:Qty: 1 on 09/26/2020 by Simone Michelle MD at OR [facility] Right: Chest CR BARD : PERIPHERAL VASCULAR 10/12/2021 [id number] / / [id number] Description:right IJ Lens Intraoc 19.0 - [id number] - [id number] Implanted:Qty: 1 on 02/03/2021 by Chris Sexton MD at OR [facility] Right: Eye BAUSCH [employer] LOMB 09/11/2025 [id number] / [id number] / Lens Intraoc 19.0 - [id number] - [id number] Implanted:Qty: 1 on 02/24/2021 by Chris Sexton MD at OR [facility] Left: Eye BAUSCH & LOMB 10/12/2025 [id number] / [id number] System Urolift - [id number] Implanted:Qty: 2 on 03/17/2023 by Devyn Paniagua MD at OR [facility] N/A: Urethra [employer] 11/18/2023 [id number] / / [id number] System Urolift - [id number] Implanted:Qty: 3 on 03/17/2023 by Devyn Paniagua MD at OR [facility] N/A: Urethra [employer] 11/03/2023 VY081-7 / / [id number] documented as of this encounter Additional Health [...] and were consensually agreed upon. Care Teams Sap Security Architect Relationship Specialty Start Date End Date Jaime Garcia MD [address] [place] [address] [place] [address] PCP - General Family Medicine 10/15/20 documented as of this encounter"
--- OUTSIDE RECORDS SUMMARY | 2024-05-13 06:13 | External Medical Summary | Summary of Care ---
Author Name Unknown Organization [facility] Address [address] [place] [address] Phone [phone] Care Team Providers Care Road Design Engineer Name Role Phone Jaime Garcia MD Primary Care Provide r Encounter Details Date Type Department Care Team (Late st Contact Info) Description 09/15/2023 Telephone Family Medicine [address] [place] [phone] Jaime Garcia MD [address] [place] [address] [place] [address] Allergies Active Allergy Reactions Criticality Noted Date Comments Atorvastatin Muscle pain High 03/30/2019 Ezetimibe Muscle pain High 01/25/2020 documented as of this encounter (statuses as of 12/15/2023) Medications Medication Sig Dispensed Refills Start Date [...] Oral Tablet (Zovirax)Indicatio ns:Lambda light chain myeloma ([facility]) Take one tablet once daily 180 [...] (Decadron)Indicati ons:Multiple myeloma not having achieved remission ([facility]) 5 tabs 2 times monthly 10 [...] OR OTHER MEDICATIONS 90 Tablet 3 01/11/2023 4 Active Additional Information Patient taking differently: 50 mcg Oral [id number], Reported on 04/14/2023 Finasteride 5 MG Oral Tablet (Proscar) TAKE 1 TABLET BY MOUTH IN THE MORNING 90 Tablet 3 04/12/2023 4 Active DULoxetine HCl 20 MG Oral [...] INJECTION 6 mL 3 06/15/2023 4 Active metFORMIN HCl ER 500 MG Oral Tablet Extended Release 24 Hour (Glucophage XR)Indications:Typ e 2 diabetes mellitus with hemoglobin A1c goal of less than 7.0% ([facility]) Take 2 Tablets by mouth in the morning. 180 Tablet 1 07/11/2023 Active Pen [place] 32G X 4 MM Use as directed. Inject Lantus once daily. 50 Each 3 07/19/2023 Active Icosapent Ethyl 1 GM Oral Capsule (Vascepa)Indicatio ns:Hyperlipidemia with target LDL less than 70 Take 2 Capsules by mouth 2 times a day with morning and evening meals. Swallow capsules whole, do not open or break. 360 Capsule 3 07/20/2023 Active Folic Acid 400 MCG Oral TabletIndications: Low folate TAKE ONE TABLET BY MOUTH IN THE MORNING 90 Tablet 1 08/27/2023 4 Active Pantoprazole Sodium 20 MG Oral Tablet Delayed Release (Protonix)Indicati ons:Gastroesophage al reflux disease without esophagitis TAKE ONE TABLET BY MOUTH EVERY DAY IN THE MORNING 90 Tablet 2 08/31/2023 4 Active Dexcom G7 SensorIndications: Type 2 diabetes mellitus with stage 3b chronic kidney disease, without long-term current use of insulin ([facility]) Use as directed to check blood sugars daily. Change every 10 days 9 Each 3 09/01/2023 Active Midodrine HCl 10 MG Oral Tablet (Proamatine)Indica tions:takes 1-3 tabs depending on bp as needed Take 2 tablet shortly before or upon rising in the morning, at midday, and in the late afternoon (not later than 6 PM) 600 Tablet 3 09/02/2023 Active Nystatin 294926 UNIT/ML Mouth/Throat SuspensionIndicati ons:Multiple myeloma in relapse (HCC) Swish and swallow 5 mL in the morning and 5 mL at noon and 5 mL in the evening and 5 mL before bedtime. 60 mL 1 09/08/2023 Active Additional Information Patient not taking.Reported on 10/04/2023 Vemlidy 25 MG Oral Tablet (Tenofovir Alafenamide Fumarate) Take 1 tablet by mouth in the morning. 90 Tablet 1 09/09/2023 Active Ondansetron HCl 8 MG Oral Tablet (Zofran)Indication s:Nausea Take 1 Tablet by mouth every 8 hours as needed for Nausea. 30 Tablet 3 09/14/2023 Active documented as of this encounter (statuses as of 12/15/2023) Active Problems Problem Noted Date Diagnosed Date [...] as of this encounter (statuses as of 12/15/2023) Resolved Problems Problem Noted Date Diagnosed Date [...] as of this encounter (statuses as of 12/15/2023) Immunizations Name Administration Dates Next Due COVID-19, [...] Miscellaneous Notes * Telephone Encounter - Beth Salter CRNP - 09/16/2023 12:54 PM EST Received positive salmonella stool test results. Upon chart review it appears that he has been admitted to [facility] for further treatment. * Telephone Encounter - Sharon Blanco LPN - 09/15/2023 12:21 PM EST Dariana from Dept of Health calling due to lab results, ordered by Cardiology & forwarded over to PCP office. Positive for Salmonella. Spoke to PCP who is aware & pt is aware. documented in this encounter Plan of Treatment Upcoming Encounters Date Type Department Care Team (Late st Contact Info) Description 12/16/2023 8:30 AM EDT [facility] [address] [place] [address] Sulma Seth, RN [address] [place] [address] 12/23/2023 11:40 AM EDT Office Visit Family Medicine [address] [place] [phone] Jaime Garcia MD [address] [place] [address] [place] [address] 12/28/2023 9:50 AM EDT Anticoagulation Pharmacy, [address] [place] [address] [place] [address] 12/29/2023 9:00 AM EDT Office Visit Otolaryngology [facility] [address] [place] [address] Haley Aguero PA-C [address] [place] [address] 01/06/2024 2:30 PM EDT [facility], [facility] [address] [place] [address] Sulma Seth, RN [address] [place] [address] 01/11/2024 9:00 AM EDT [facility]medicine [facility] [address] [place] [address] Rosalio Amaral MD [address] [facility] [place] [address] 01/19/2024 3:00 PM EDT Office Visit Cardiology, [facility] [address] [place] [address] Beth Gibbs CRNP [address] [place] [address] 02/15/2024 1:30 PM EDT Telemedicine H[facility]ology [facility] [place] [address] [place] [address] Rosalio Amaral MD [address] [facility] [place] [address] 03/08/2024 9:00 AM EDT Office Visit Cardiology [address] [place] [address] Tim Ruiz PAPageC [address] [place] [address] 10/30/2024 1:45 PM EST Office Visit Urology, [facility] [address] [place] [address] Devyn Paniagua MD 27 [facility] [address] [place] [address] Health Maintenance Due Date Last Done Comments [...] Additional history exists CKD HGB USE SMARTSET 61380 11/13/202411/13, 11/14/2023, 10/28/2023, Additional history exists CKD PHOS USE SMARTSET 415[address] 11/13/2024 03/0 12/2023, 10/28/2023, 08/16/2023, Additional history [...] encounter Medical Devices Implanted Type Area Record Clerk Salesperson Device Identifier Shelf Expiration Date Model / Serial / Lot Port Power Mri W/8fr Cath - [id number] Implanted:Qty: 1 on 09/26/2020 by Simone Michelle MD at OR [facility] Right: Chest CR BARD : PERIPHERAL VASCULAR 10/12/2021 [id number] / / [id number] Description:right IJ Lens Intraoc 19.0 - [id number] - [id number] Implanted:Qty: 1 on 02/03/2021 by Chris Sexton MD at OR [facility] Right: Eye [employer]USCH [employer] LOMB 09/11/2025 [id number] / [id number] / Lens Intraoc 19.0 - [id number] - [id number] Implanted:Qty: 1 on 02/24/2021 by Chris Sexton MD at OR [facility] Left: Eye BAUSCH & LOMB 10/12/2025 [id number] / [id number] System Urolift - [id number] Implanted:Qty: 2 on 03/17/2023 by Devyn Paniagua MD at OR [facility] N/A: Urethra [employer] 11/18/2023 CV348-2 / / [id number] System Urolift - [id number] Implanted:Qty: 3 on 03/17/2023 by Devyn Paniagua MD at OR [facility] N/A: Urethra [employer] 11/03/2023 FI153-5 / / [id number] documented as of this encounter Additional Health [...] and were consensually agreed upon. Care Teams Road Design Engineer Relationship Specialty Start Date End Date Jaime Garcia MD [address] [place] [address] [place] [address] PCP - General Family Medicine 10/15/20 documented as of this encounter
--- OUTSIDE RECORDS SUMMARY | 2024-05-13 06:13 | External Medical Summary | Summary of Care ---
Author Name Unknown Organization [facility] Address [address] [place] [address] Phone [phone] Care Team Providers Care Irrigation Teacher Name Role Phone Jaime Garcia MD Primary Care Provide r Reason for Visit * Reason Comments Medication Refill Encounter Details Date Type Department Care Team (Late st Contact Info) Description 12/23/2023 Refill Cardiology, [facility] [address] [place] [address] Olman Slade PA-C [address] [facility], [place] [phone] Hypothyroidism due to amiodarone* Allergies Active Allergy Reactions Criticality Noted Date Comments Atorvastatin Muscle pain High 03/30/2019 Ezetimibe Muscle pain High 01/25/2020 documented as of this encounter (statuses as of 12/23/2023) Medications Medication Sig Dispensed Refills Start Date [...] morning. 180 Tablet 1 3 Active Pen Hopkins 32G X 4 MM Use as directed. [...] PM) 600 Tablet 3 3 Active Nystatin 358712 UNIT/ML Mouth/Throat SuspensionIndicati ons:Multiple myeloma in relapse [...] ons:Atrial fibrillation, unspecified type (HCC),Anticoagulat ion management encounter,director long term care current use of anticoagulant [...] 90 Tablet 3 4 12/23/19 25 Active Levothyroxine Sodium 50 MCG Oral Tablet (Levoxyl) TAKE 1 TABLET BY MOUTH DAILY AT LEAST 30 MINUTES PRIOR TO FIRST MEAL OF THE DAY OR OTHER MEDICATIONS 90 Tablet 3 3 12/23/19 24 Discontinu ed(Refill) documented as of this encounter (statuses as of 12/23/2023) Active Problems Problem Noted Date Diagnosed Date [...] as of this encounter (statuses as of 12/23/2023) Resolved Problems Problem Noted Date Diagnosed Date [...] as of this encounter (statuses as of 12/23/2023) Immunizations Name Administration Dates Next Due COVID-19, [...] encounter Miscellaneous Notes * Telephone Encounter - Olman Slade PA-C - 12/23/2023 4:10 PM EDTSigned Prescriptions: Disp Refills Levothyroxine Sodium 50 MCG Oral Tablet (L*90 Tab*3 Sig: TAKE 1 TABLET BY MOUTH DAILY AT LEAST 30 MINUTES PRIOR TO FIRST MEAL OF THE DAY OR OTHER MEDICATIONS Authorizing Provider: OLMAN SLADE * Telephone Encounter - Jayshree Sosa CMA - 12/23/2023 9:01 AM EDTPending Prescriptions: Disp Refills Levothyroxine Sodium 50 MCG Oral Tablet (L*90 Tab*3 Sig: TAKE 1 TABLET BY MOUTH DAILY AT LEAST 30 MINUTES PRIOR TO FIRST MEAL OF THE DAY OR OTHER MEDICATIONS * Telephone Encounter - Jayshree Sosa CMA - 12/23/2023 9:01 AM EDT Did you pend patient's preferred pharmacy and medication before forwarding?yes Pharmacy: [facility] Pending Prescriptions: Disp Refills Levothyroxine Sodium 50 MCG Oral Tablet (*90 Tab*3 Sig: TAKE 1 TABLET BY MOUTH DAILY AT LEAST 30 MINUTES PRIOR TO FIRST MEAL OF THE DAY OR OTHER MEDICATIONS Last Visit: 09/13/2023 (in office), 07/08/2023 (telemedicine) Next Visit: 01/19/2024 If no future appointments scheduled, and last appointment is greater than a year ago, please schedule patient for a follow-up appointment Last date the medication was ordered: 01-11-2023 Is this request for a controlled substance?No Urine Drug Screen:No results found. However, due to the size of the patient record, not all encounters were searched. Please check Results Review for a complete set of results. Patient Phone Numbers Labs: Lab Results Component Value Date/Time CREAT 1.26 12/19/2023 10:18 AM CREAT 1.4 (H) 10/03/2020 07:44 AM POTASSIUM 4.6 12/19/2023 10:18 AM POTASSIUM 3.9 10/03/2020 07:44 AM TSH 2.22 07/25/2023 09:43 AM TSH 1.93 07/04/2020 07:47 AM LDLCALC 22 01/31/2023 08:42 AM LDLCALC 149 (H) 12/11/2019 09:47 AM LDLDIRECT 33 07/06/2023 08:48 AM LDLDIRECT 99 07/04/2020 07:47 AM ALT 7 (L) 12/19/2023 10:18 AM ALT 32 10/03/2020 07:44 AM HGBA1C 9.3 (H) 07/06/2023 08:53 AM HGBA1C 7.8 (H) 07/04/2020 07:47 AM documented in this encounter Plan of Treatment Upcoming Encounters Date Type Department Care Team (Late st Contact Info) Description 12/28/2023 9:50 AM EDT Anticoagulation Pharmacy, [address] [place] [address] [place] [address] 12/29/2023 9:00 AM EDT Office Visit Otolaryngology [facility] [address] [place] [address] Haley Aguero PA-C [address] [place] [address] 01/06/2024 2:30 PM EDT [facility] [address] [place] [address] Sulma Seth, RN [address] [place] [address] 01/11/2024 9:00 AM EDT Telemedicine H[facility]ology [facility], [place] [facility] [place] [address] Rosalio Amaral MD [address] [facility] [place] [address] 01/19/2024 3:00 PM EDT Office Visit Cardiology, [facility] [place] [address] Beth Gibbs CRNP 132 [facility] [place] [address] 01/27/2024 10:00 AM EDT [facility] [place] [address] Sulma Seth RN 132 [facility] [place] [address] 02/15/2024 1:30 PM EDT Telemedicine H[facility]ology [facility] [place] [address] [facility] [place] [address] Rosalio Amaral MD [address] [facility] [place] [address] 03/08/2024 9:00 AM EDT Office Visit Cardiology [address] [place] [address] Olman Slade PA-C 132 [facility] [place] [address] 10/30/2024 1:45 PM EST Office Visit Urology, [facility] 132 [facility] [place] [address] Devyn Paniagua MD 27 [facility] [address] [place] [address] Health Maintenance Due Date Last Done Comments [...] Additional history exists CKD HGB USE SMARTSET 36806 11/13/202411/13, 11/14/2023, 10/28/2023, Additional history exists CKD PHOS USE SMARTSET 94778 11/13/2024 03/0 12/2023, 10/28/2023, 08/16/2023, Additional history [...] encounter Medical Devices Implanted Type Area Senior Bi Developer Device Identifier Shelf Expiration Date Model / Serial / Lot Port Power Mri W/8fr Cath - [id number] Implanted:Qty: 1 on 09/26/2020 by Simone Michelle MD at OR [facility] Right: Chest CR BARD : PERIPHERAL VASCULAR 10/12/2021 [id number] / / [id number] Description:right IJ Lens Intraoc 19.0 - [id number] - [id number] Implanted:Qty: 1 on 02/03/2021 by Chris Sexton MD at OR [facility] Right: Eye [employer]USCH [employer] LOMB 09/11/2025 [id number] / [id number] / Lens Intraoc 19.0 - [id number] - [id number] Implanted:Qty: 1 on 02/24/2021 by Chris Sexton MD at OR [facility] Left: Eye BAUSCH & LOMB 10/12/2025 [id number] / [id number] / [id number] System Urolift - [id number] Implanted:Qty: 2 on 03/17/2023 by Devyn Paniagua MD at OR [facility] N/A: Urethra [employer] 11/18/2023 [id number] / / [id number] System Urolift - [id number] Implanted:Qty: 3 on 03/17/2023 by Devyn Painagua MD at OR 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 Care Teams Irrigation Teacher Relationship Specialty Start Date End Date Jaime Garcia MD [address] [place] [address] [place] [phone] PCP - General Family Medicine 10/15/20 documented as of this encounter
--- OUTSIDE RECORDS SUMMARY | 2024-05-13 06:13 | External Medical Summary | Summary of Care ---
Author Name Unknown Organization [facility] Address [address] [place] [address] Phone [phone] Care Team Providers Care Territory Sales Consultant Name Role Phone Jaime Garcia MD Primary Care Provide r Reason for Visit * Reason Onset Date Comments Precert In Process 12/08/2023 1Alicia GHP C ommercial Repatha 140mg/mL sureclick pen (reauth) Encounter Details Date Type Department Care Team (Late st Contact Info) Description 12/08/2023 Telephone Cardiology, [place] [address] [place] [address] Beth Salter CRNP [address] [facility] [place] [phone] Precert In Process (1Alicia GHP Commercial... Allergies Active Allergy Reactions Criticality Noted Date Comments Atorvastatin Muscle pain High 03/30/2019 Ezetimibe Muscle pain High 01/25/2020 documented as of this encounter (statuses as of 12/12/2023) Medications Medication Sig Dispensed Refills Start Date [...] than 7.0% ([facility]) Test once daily DxE11.9. 100 Each 5 1 Active Albuterol Sulfate HFA 108 (90 Base) MCG/ACT Inhalation Aerosol SolutionIndications :Acute bronchitis, antibiotics not indicated Inhale 2 Puffs by mouth every 6 hours as needed for Cough or Shortness of Breath. 54 g 1 1 Active Acyclovir 400 MG Oral Tablet (Zovirax)Indication s:Lambda light chain myeloma ([facility]) Take one tablet once daily 180 [...] not having achieved remission ([facility]) 5 tabs 2 times monthly 10 [...] Information Patient taking differently: 50 mcg Oral [id number], Reported on 04/14/2023 Finasteride 5 MG Oral [...] than 7.0% ([facility]) Take 2 Tablets by mouth in the morning. 180 Tablet 1 3 Active Pen [place] 32G X 4 MM Use as directed. 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 Did confirm this information with the pharmacy. Pt's current insurance information is as follows: Patient name: Jerardo Ochoa JrIsabel ID number: [id number] BIN number: [id number] PCN number: [id number] Group number: none Subscriber name: Jerardo Ochoa JrIsabel Primary or Secondary Insurance:Primary Medication: repatha sureclick 140 Reason for Request: prior auth required Pharmacy and phone number: [facility] [phone] Rx plan and phone number: cesar read [phone] Is this a new medication for the patient? 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 III [facility]) (formerly Telepharmacy) 12/08/2023,12:26 PM documented in this encounter Plan of Treatment Upcoming Encounters Date Type Department Care Team (Late st Contact Info) Description 12/16/2023 8:30 AM EDT [facility], [facility] [address] [place] [address] Sulma Seth RN [address] [place] [address] 12/28/2023 9:50 AM EDT Anticoagulation Pharmacy, [address] [place] [address] [place] [address] 12/29/2023 9:00 AM EDT Office Visit Otolaryngology [facility] [address] [place] [address] Haley Aguero PA-C [address] [place] [address] 01/06/2024 2:30 PM EDT [facility] Visit [facility], [facility] [address] [place] [address] Sulma Seth RN 132 [place] [address] 01/11/2024 9:00 AM EDT Telemedicine Hematology [facility] [place] [address] [place] [address] [place] [address] Rosalio Amaral MD [address] [facility] [place] [address] 01/19/2024 3:00 PM EDT Office Visit Cardiology, [facility] [address] [place] [address] Beth Gibbs CRNP [address] [place] [address] 02/15/2024 1:30 PM EDT [facility]med[facility] [address] [facility] [place] [address] Rosalio Amaral MD [address] [facility] [place] [address] 03/08/2024 9:00 AM EDT Office Visit Cardiology [address] [place] [address] Tim Ruiz PAPageC [address] [place] [address] 10/30/2024 1:45 PM EST Office Visit Urology, [facility] [address] [place] [address] Devyn Paniagua MD 27 [facility] [address] [place] [address] Health Maintenance Due Date Last Done Comments [...] Additional history exists CKD HGB USE SMARTSET 10015 11/13/202411/13, 11/14/2023, 10/28/2023, Additional history exists CKD PHOS USE SMARTSET 48769 11/13/2024 03/0 12/2023, 10/28/2023, 08/16/2023, Additional history [...] encounter Medical Devices Implanted Type Area Principal Automation Engineer Device Identifier Shelf Expiration Date Model / Serial / Lot Port Power Mri W/8fr Cath - [id number] Implanted:Qty: 1 on 09/26/2020 by Simone Michelle MD at OR [facility] Right: Chest CR BARD : PERIPHERAL VASCULAR 10/12/2021 [id number] / / [id number] Description:right IJ Lens Intraoc 19.0 - [id number] - [id number] Implanted:Qty: 1 on 02/03/2021 by Chris Sexton MD at OR [facility] Right: Eye BAUSCH & LOMB 09/11/2025 [id number] / [id number] / Lens Intraoc 19.0 - [id number] - [id number] Implanted:Qty: 1 on 02/24/2021 by Chris Sexton MD at OR [facility] Left: Eye BAUSCH & LOMB 10/12/2025 [id number] / [id number] System Urolift - [id number] Implanted:Qty: 2 on 03/17/2023 by Devyn Paniagua MD at OR [facility] N/A: Urethra [employer] 11/18/2023 [id number] / / [id number] System Urolift - [id number] Implanted:Qty: 3 on 03/17/2023 by Devyn Paniagua MD at OR [facility] N/A: Urethra [employer] 11/03/2023 [id number] / / [id number] documented as of this encounter Additional Health [...] and were consensually agreed upon. Care Teams Territory Sales Consultant Relationship Specialty Start Date End Date Jaime Garcia MD [address] [place] [address] [place] [address] PCP - General Family Medicine 10/15/20 documented as of this encounter
--- OUTSIDE RECORDS SUMMARY | 2024-05-13 06:13 | External Medical Summary | Summary of Care ---
Author Name Unknown Organization [facility] Address [address] [place] [address] Phone [phone] Care Team Providers Care Sterile Preparation Technician Name Role Phone Jaime Garcia MD Primary Care Provide r Reason for Visit * Reason Onset Date Comments Appointment 12/20/2023 Encounter Details Date Type Department Care Team (Late st Contact Info) Description 12/20/2023 Telephone Access Center, [place] [address] [facility] *DO NOT REMOVE THIS DEPARTMENT* [place] [address] Services, Scheduling [address] [place] [address] Appointment Allergies Active Allergy Reactions Criticality Noted [...] Oral Tablet (Zovirax)Indicatio ns:Lambda light chain myeloma ([facility]) [...] (Decadron)Indicati ons:Multiple myeloma not having achieved remission ([facility]) 5 tabs 2 times [...] morning. 180 Tablet 1 3 Active Pen [place] 32G X 4 MM Use as directed. 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 [...] encounter Miscellaneous Notes * Telephone Encounter - Josefa Coombs OSA - 12/20/2023 4:18 PM EDT Patient calling to set up chemo documented in this encounter Plan of Treatment Upcoming Encounters Date Type Department Care Team (Late st Contact Info) Description 12/28/2023 9:50 AM EDT Anticoagulation Pharmacy, [address] [place] [address] [place] [address] 12/29/2023 9:00 AM EDT Office Visit Otolaryngology [facility] [address] [place] [address] Haley Aguero PA-C [address] [place] [address] 01/06/2024 2:30 PM EDT [facility], [facility] [address] [place] [address] Sulma Seth, RN [address] [place] [address] 01/11/2024 9:00 AM EDT Telemedicine [facility] [place] [address] [place] [address] Rosalio Amaral MD [address] [place] [address] 01/19/2024 3:00 PM EDT [facility] [address] [place] [address] Beth Gibbs CRNP [address] [place] [address] 01/27/2024 10:00 AM EDT Home Visit [facility], [facility] [address] [place] [address] Sulma Seth, RN [address] [place] [address] 02/15/2024 1:30 PM EDT Telemedicine [facility] [place] [address] [place] [address] Rosalio Amaral MD [address] [place] [address] 03/08/2024 9:00 AM EDT Office Visit Cardiology [address] [place] [address] Tim Ruiz PA-C [address] [place] [address] 10/30/2024 1:45 PM EST Office Visit Urology, [facility] [address] [place] [address] Devyn Paniagua MD [address] [place] [address] [place] [address] Health Maintenance Due Date Last Done Comments [...] 05/13/2020, 05/22/2019 GFR 06/19/2024 12/19/2023, 040 04/2024, 11/14/2023, Additional history exists Diabetic Eye Exam 07/11/2024 07/11/2023, , 07/05/2022, Additional history exists TSH 07/25/2024 07/25/2023, 03/12, 01/31/2023, Additional history exists Albumin/Creatinine Ratio 09/08/202409/08/ 023, 06/22/2023, 05/27/2023, Additional history exists CKD HGB USE SMARTSET 21878 11/13/202411/13, 11/14/2023, 10/28/2023, Additional history exists CKD PHOS USE SMARTSET 58805 11/13/202412/2023, 10/28/2023, 08/16/2023, Additional history exists DTaP,Tdap,and Td [...] this encounter Medical Devices Implanted Type Area Recycle Worker Device Identifier Shelf Expiration Date Model / Serial / Lot Port Power Mri W/8fr Cath - [id number] Implanted:Qty: 1 on 09/26/2020 by Simone Michelle MD at OR [facility] Right: Chest CR BARD : PERIPHERAL VASCULAR 10/12/2021 [id number] / / [id number] Description:right IJ Lens Intraoc 19.0 - [id number] - [id number] Implanted:Qty: 1 on 02/03/2021 by Chris Sexton MD at OR [facility] Right: Eye BAUSCH & LOMB 09/11/2025 [id number] / [id number] / Lens Intraoc 19.0 - [id number] - [id number] Implanted:Qty: 1 on 02/24/2021 by Chris Sexton MD at OR [facility] Left: Eye BAUSCH & LOMB 10/12/2025 [id number] / [id number] System Urolift - [id number] Implanted:Qty: 2 on 03/17/2023 by Devyn Paniagua MD at OR [facility] N/A: Urethra [employer] 11/18/2023 [id number] / / [id number] System Urolift - [id number] Implanted:Qty: 3 on 03/17/2023 by Devyn Paniagua MD at OR [facility] N/A: Urethra [employer] 11/03/2023 KY448-9 [id number] documented as of this encounter Additional Health [...] and were consensually agreed upon. Care Teams Sterile Preparation Technician Relationship Specialty Start Date End Date Jaime Garcia MD [address] [place] [address] [place] [phone] PCP - General Family Medicine 10/15/20 documented as of this encounter
--- OUTSIDE RECORDS SUMMARY | 2024-05-13 06:13 | External Medical Summary | Summary of Care ---
Author Name Unknown Organization [facility] Address [address] [place] [address] Phone [phone] Care Team Providers Care Plate Stacker Name Role Phone Jaime Garcia MD Primary Care Provide r Reason for Visit * Reason Onset Date Comments Referral 09/16/2023 Encounter Details Date Type Department Care Team (Late st Contact Info) Description 09/16/2023 Telephone Home Infusion, [facility] [address] [place] [address] Services, [facility] [address] [place] [address] Referral Allergies Active Allergy Reactions Criticality Noted Date Comments Atorvastatin Muscle pain High 03/30/2019 Ezetimibe Muscle pain High 01/25/2020 documented as of this encounter (statuses as of 12/16/2023) Medications Medication Sig Dispensed Refills Start Date [...] 7.0% ([facility]) Test once daily DxE11.9. 100 Each [...] (Decadron)Indicat ions:Multiple myeloma not having achieved remission ([facility]) 5 tabs 2 times monthly 10 [...] Information Patient taking differently: 50 mcg Oral [id number], Reported on 04/14/2023 Finasteride 5 MG Oral [...] PRIOR TO INJECTION 6 mL 3 06/15/20 024 Active metFORMIN HCl ER 500 MG Oral Tablet Extended Release 24 Hour (Glucophage XR)Indications:Ty pe 2 diabetes mellitus with hemoglobin A1c goal of less than 7.0% (HCC) Take 2 Tablets by mouth in the morning. 180 Tablet 1 07/11/20 Active Pen Redway 32G X 4 MM Use as directed. [...] 600 Tablet 3 09/02/20 23 Active Nystatin 955495 UNIT/ML Mouth/Throat SuspensionIndicat ions:Multiple myeloma in relapse ([facility] [...] Nausea. 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,Paroxysma l atrial fibrillation ([facility]) TAKE ONE TABLET BY MOUTH ON TUESDAY AND TUESDAY, AND ONE-HALF TABLET ALL OTHER DAYS OR DIRECTED BY ANTICOAGULATION CLINIC 75 Tablet 3 11/11/19 23 024 Discontinued(Re fill) Dexamethasone 4 MG Oral Tablet (Decadron) TAKE 5 TABLETS BY MOUTH TWICE A MONTH 10 Tablet 5 10/27/19 23 024 Dapsone 25 MG Oral TabletIndications :Multiple myeloma in relapse (HCC) TAKE ONE TABLET BY MOUTH EVERY DAY 90 Tablet 1 04/26/20 23 024 Discontinued(Re fill) Insulin Glargine Solostar 100 UNIT/ML Subcutaneous Solution Pen-injector (Lantus SoloStar) Inject 10 Units under the skin every evening. 15 mL 3 07/19/20 23 024 Discontinued oxyCODONE HCl 5 MG Oral Tablet (Oxy IR)Indications:Mu ltiple myeloma in relapse (HCC) Take 1 Tablet by mouth every 4 hours as needed for breakthrough pain. 30 Tablet 0 08/18/20 23 024 Discontinued(Re fill) Magnesium Chloride 64 MG Oral Tablet Delayed Release (Mag64) Take 1 Tablet by mouth in the morning and 1 Tablet before bedtime. 0 024 Discontinued(Re fill) Torsemide 10 MG Oral Tablet (Demadex)Indicati ons:takes extra tab for swelling, wt gain Take 1 Tablet by mouth in the morning every other day. 100 Tablet 3 09/02/20 23 024 Discontinued Potassium Chloride ER 10 MEQ Oral Tablet Extended ReleaseIndication s:Chronic diastolic congestive heart failure (HCC) Take 1 Tablet by mouth in the morning. 100 Tablet 3 09/02/20 23 024 Discontinued documented as of this encounter (statuses as of 12/16/2023) Active Problems Problem Noted Date Diagnosed Date [...] as of this encounter (statuses as of 12/16/2023) Resolved Problems Problem Noted Date Diagnosed Date [...] as of this encounter (statuses as of 12/16/2023) Immunizations Name Administration Dates Next Due COVID-19, [...] Miscellaneous Notes * Telephone Encounter - Rufina Ward OSA - 09/16/2023 4:49 PM EST Spoke with patient regarding 2023 insurance coverage for Hizentra infusion. Patient's GHP Gold willcover Hizentra with a $50 copay per infusion up to $1200 OOP max ($0 met), once met will cover at 100%. Plan will cover therapy and nursing with a $500 deducitble ($0 met), once met will cover at 100%. Cost per infusion is $334.71. Patient is not agreeable to this cost. Would like to see what other options are available. Please reach out to patient. documented in this encounter Plan of Treatment Upcoming Encounters Date Type Department Care Team (Late st Contact Info) Description 12/23/2023 11:40 AM EDT Office Visit Family Medicine [address] [place] [phone] Jaime Garcia MD [address] [place] [address] [place] [address] 12/28/2023 9:50 AM EDT Anticoagulation Pharmacy, [address] [place] [phone] [place] [address] 12/29/2023 9:00 AM EDT Office Visit Otolaryngology [facility] [address] [place] [address] Haley Aguero PA-C [address] [place] [address] 01/06/2024 2:30 PM EDT [facility] Visit [facility] [address] [place] [address] Sulma Seth, BOBBY [address] [place] [address] 01/11/2024 9:00 AM EDT [facility]medicine [facility] Tyree UGARTE [address] [facility] [place] [address] Rosalio Amaral MD [address] [place] [address] 01/19/2024 3:00 PM EDT Office Visit Cardiology, [facility] [address] [place] [address] Beth Gibbs CRNP [address] [place] [address] 01/27/2024 10:00 AM EDT [facility] Visit [facility], [facility] [address] [place] [address] Sulma Seth RN [address] [place] [address] 02/15/2024 1:30 PM EDT Telemedicine [facility] U[facility] [address] [facility] [place] [address] Rosalio Amaral MD [address] [place] [address] 03/08/2024 9:00 AM EDT Office Visit Cardiology [address] [place] [address] Tim Ruiz PA-C [address] [place] [address] 10/30/2024 1:45 PM EST Office Visit Urology, [facility] [address] [place] [address] Devyn Paniagua MD [address] [facility] [address] [place] [address] Health Maintenance Due Date Last Done Comments Cologuard 2015 Fecal Occult Blood Test 2015 Sigmoidoscopy 2015 Depression Screening 01/05/2022 01/05/2021 Diabetic Foot Exam 12/14/2022 12/14/2021, 0 10/15/2020, 06/25/2019 COVID-19 Vaccine ( season) 2023 10/06/2021, 06/24/2021, 06/23/2021 HbA1c 01/05/2024 07/06/2023, 08/0 11/2022, 03/29/2023, Additional history exists GFR 05/16/2024 11/14/2023, 09/2023, 11/11/2023, Additional history exists Pneumococcal Vaccine: Pediatrics (0 to 5 Years) and At-Risk Patients (6 to 64 Years) (3 of 3 - PPSV23 or PCV20) 05/22/2024 05/13/2020, 05/22/2019 Diabetic Eye Exam 07/11/2024 07/11/2023, , 07/05/2022, Additional history exists TSH 07/25/2024 07/25/2023, 03/12, 01/31/2023, Additional history exists Albumin/Creatinine Ratio 09/08/2024 023, 06/22/2023, 05/27/2023, Additional history exists CKD HGB USE SMARTSET 74330 11/13/202411/13, 11/14/2023, 10/28/2023, Additional history exists CKD PHOS USE SMARTSET 78364 11/13/202412/2023, 10/28/2023, 08/16/2023, Additional history exists DTaP,Tdap,and [...] this encounter Medical Devices Implanted Type Area Nutrition And Dietetics Instructor Device Identifier Shelf Expiration Date Model / Serial / Lot Port Power Mri W/8fr Cath - [id number] Implanted:Qty: 1 on 09/26/2020 by Simone Michelle MD at OR [facility] Right: Chest CR BARD : PERIPHERAL VASCULAR 10/12/2021 [id number] / / [id number] Description:right IJ Lens Intraoc 19.0 - [id number] - [id number] Implanted:Qty: 1 on 02/03/2021 by Chris Sexton MD at OR [facility] Right: Eye [employer] 09/11/2025 [id number] / [id number] / Lens Intraoc 19.0 - [id number] - [id number] Implanted:Qty: 1 on 02/24/2021 by Chris Sexton MD at OR [facility] Left: Eye [employer]OMB 10/12/2025 [id number] / [id number] / [id number] System Urolift - [id number] Implanted:Qty: 2 on 03/17/2023 by Devyn Paniagua MD at OR [facility] N/A: Urethra [employer] 11/18/2023 [id number] / / [id number] System Urolift - [id number] Implanted:Qty: 3 on 03/17/2023 by Devyn Paniagua MD at OR [facility] N/A: Urethra [employer] 11/03/2023 [id number] / / [id number] documented as of this encounter Additional Health [...] and were consensually agreed upon. Care Teams Plate Stacker Relationship Specialty Start Date End Date Jaime Garcia MD [address] [place] [address] [place] [address] PCP - General Family Medicine 10/15/20 documented as of this encounter
--- OUTSIDE RECORDS SUMMARY | 2024-05-13 06:13 | External Medical Summary | Summary of Care ---
Author Name Unknown Organization [facility] Address [address] [place] [address] Phone [phone] Care Team Providers Care Job Tracer Name Role Phone Jaime Garcia MD Primary Care Provide r Reason for Visit * Reason Onset Date Comments Precert Approved 12/08/2023 Repatha 140mg/m L sureclick pen (reauth) Encounter Details Date Type Department Care Team (Late st Contact Info) Description 12/08/2023 Telephone Cardiology, [facility] [address] [place] [address] Beth Salter CRNP [address] [place], [place] [id number] Precert Approved (Repatha 140mg/mL surecli... Allergies Active Allergy Reactions Criticality Noted Date Comments Atorvastatin Muscle pain High 03/30/2019 Ezetimibe Muscle pain High 01/25/2020 documented as of this encounter (statuses as of 12/14/2023) Medications Medication Sig Dispensed Refills Start Date [...] Oral Tablet (Zovirax)Indication s:Lambda light chain myeloma ([facility]) Take [...] (Decadron)Indicatio ns:Multiple myeloma not having achieved remission ([facility]) 5 tabs 2 times monthly [...] Information Patient taking differently: 50 mcg Oral [id number], Reported on 04/14/2023 Finasteride 5 MG Oral [...] morning. 180 Tablet 1 3 Active Pen Lacassine 32G X 4 MM Use as directed. 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 Degeneration of lumbosacral intervertebral disc 02/19/2005 documented as of this encounter (statuses as of 12/14/2023) Resolved Problems Problem Noted Date Diagnosed Date [...] as of this encounter (statuses as of 12/14/2023) Immunizations Name Administration Dates Next Due COVID-19, [...] Notes * Telephone Encounter - Evelina Wagner [facility] - 12/08/2023 12:26 PM EDT Pharmacy calling to inform doctor that the patient's insurance will not pay for this medication without a completed prior authorization. Did confirm this information with the pharmacy. Pt's current insurance information is as follows: Patient name: Jerardo Ochoa ID number: [id number] BIN number: [id number] PCN number: [id number] Group number: none Subscriber name: Jerardo Ochoa JrIsabel Primary or Secondary Insurance:Primary Medication: repatha sureclick 140 Reason for Request: prior auth required Pharmacy and phone number: [facility] [address] [facility] [phone] Rx plan and phone number: [facility] [phone] Is this a new medication for the patient? Yes What alternative medications does the pharmacy have in stock?: none Thank you, Evelina Wagner [facility] (formerly Telepharmacy) 12/08/2023,12:26 PM documented in this encounter Plan of Treatment Upcoming Encounters Date Type Department Care Team (Late st Contact Info) Description 12/16/2023 8:30 AM EDT [facility] [place] [address] [place] [address] Sulma Seth, RN [address] [place] [address] 12/23/2023 11:40 AM EDT Office Visit Family Medicine [address] [place] [phone] Jaime Garcia MD [address] [place] [address] [place] [address] 12/28/2023 9:50 AM EDT Anticoagulation Pharmacy, [address] [place] [address] [place] [address] 12/29/2023 9:00 AM EDT Office Visit Otolaryngology [facility] [address] [place] [address] Haley Aguero PA-C [address] [place] [address] 01/06/2024 2:30 PM EDT [facility] [address] [place] [address] Sulma Seth RN [address] [place] [address] 01/11/2024 9:00 AM EDT Telemedicine [facility] [place] [place] [address] [place] [address] Rosalio Amaral MD [address] [place] [address] 01/19/2024 3:00 PM EDT Office Visit Cardiology, [facility] [address] [place] [address] Beth Gibbs CRNP [address] [place] [address] 02/15/2024 1:30 PM EDT Telemedicine [facility] Tyree Jordan [address] [place] [address] Rosalio Amaral MD [address] [place] [address] 03/08/2024 9:00 AM EDT Office Visit Cardiology [address] [place] [address] Tim Ruiz PA-C [address] [place] [address] 10/30/2024 1:45 PM EST Office Visit Urology, [facility] [address] [place] [address] Devyn Paniagua MD [address] [address] [place] [address] Health Maintenance Due Date Last Done Comments [...] Additional history exists CKD HGB USE SMARTSET 18351 11/13/202411/13, 11/14/2023, 10/28/2023, Additional history exists CKD PHOS USE SMARTSET 95279 11/13/2024 03/0 12/2023, 10/28/2023, 08/16/2023, Additional history [...] this encounter Medical Devices Implanted Type Area Parent Aide Device Identifier Shelf Expiration Date Model / Serial / Lot Port Power Mri W/8fr Cath - [id number] Implanted:Qty: 1 on 09/26/2020 by Simone Michelle MD at OR [facility] Right: Chest CR BARD : PERIPHERAL VASCULAR 10/12/2021 [id number] / / [id number] Description:right IJ Lens Intraoc 19.0 - [id number] - [id number] Implanted:Qty: 1 on 02/03/2021 by Chris Sexton MD at OR [facility] Right: Eye [employer]CH [employer]OMB 09/11/2025 [id number] / [id number] / Lens Intraoc 19.0 - [id number] - [id number] Implanted:Qty: 1 on 02/24/2021 by Chris Sexton MD at OR [facility] Left: Eye BAUSCH [employer] LOMB 10/12/2025 [id number] / [id number] / [id number] System Urolift - [id number] Implanted:Qty: 2 on 03/17/2023 by Devyn Paniagua MD at OR [facility] N/A: Urethra [employer] 11/18/2023 [id number] / / [id number] System Urolift - [id number] Implanted:Qty: 3 on 03/17/2023 by Devyn Paniagua MD at OR [facility] N/A: Urethra [employer] 11/03/2023 [id number] / / [id number] documented as of this encounter Additional Health [...] and were consensually agreed upon. Care Teams Job Tracer Relationship Specialty Start Date End Date Jaime Garcia MD [address] [place] [address] [place] [address] PCP - General Family Medicine 10/15/20 documented as of this encounter
--- OUTSIDE RECORDS SUMMARY | 2024-05-13 06:13 | External Medical Summary | Summary of Care ---
Author Name Unknown Organization [facility] Address [address] [place] [address] Phone [phone] Care Team Providers Care Station Engineer Name Role Phone Jaime Garcia MD Primary Care Provide r Reason for Visit * Reason Onset Date Comments Follow Up 12/11/2023 Encounter Details Date Type Department Care Team (Late st Contact Info) Description 12/11/2023 1:00 PM EDT Scheduled Telephone [facility], [facility] 132 [place] [address] [facility], Nurse [facility] 132 [facility] [address] Allergies Active Allergy Reactions Criticality Noted Date Comments Atorvastatin Muscle pain High 03/30/2019 Ezetimibe Muscle pain High 01/25/2020 documented as of this encounter (statuses as of 12/11/2023) Medications Medication Sig Dispensed Refills Start Date [...] than 7.0% ([facility]) Use as directed daily. Test once daily DxE11.9 100 Strip 5 1 Active LancetsIndications: Type 2 diabetes mellitus with hemoglobin A1c goal of less than 7.0% ([facility]) Test once daily DxE11.9. 100 Each 5 1 Active Albuterol Sulfate HFA 108 (90 Base) MCG/ACT Inhalation Aerosol SolutionIndications :Acute bronchitis, antibiotics not indicated Inhale 2 Puffs by mouth every 6 hours as needed for Cough or Shortness of Breath. 54 g 1 1 Active Acyclovir 400 MG Oral Tablet (Zovirax)Indication s:Lambda light chain myeloma ([facility]) Take one tablet once daily 180 [...] myeloma not having achieved remission ([facility]) 5 tabs 2 times monthly 10 [...] Information Patient taking differently: 50 mcg Oral [id number], Reported on 04/14/2023 Finasteride 5 MG Oral [...] morning. 180 Tablet 1 3 Active Pen [place] 32G X 4 MM Use [...] long-term current use of insulin ([facility]) Use as directed to check blood sugars daily. Change every 10 days 9 Each 3 3 Active Midodrine HCl 10 MG Oral Tablet (Proamatine)Indicat ions:takes 1-3 tabs depending on bp as needed Take 2 tablet shortly before or upon rising in the morning, at midday, and in the late afternoon (not later than 6 PM) 600 Tablet 3 3 Active Nystatin 647072 UNIT/ML Mouth/Throat SuspensionIndicatio ns:Multiple myeloma in relapse ([facility]) Swish and swallow 5 mL in [...] (Coumadin)Indicatio ns:Atrial fibrillation, unspecified type ([facility]),Anticoagulati on management encounter,USP current use of anticoagulant therapy,Paroxysmal atrial fibrillation [...] as of this encounter (statuses as of 12/11/2023) Active Problems Problem Noted Date Diagnosed Date [...] without remission 06/14/2014 Overview: Dr Rodriges/ [facility] ADVANCE DIRECTIVE INFORMATION 10/13/2006 Overview: No, Advance Directive brochure offered , patient declined. Degeneration of lumbosacral intervertebral disc 02/19/2005 documented as of this encounter (statuses as of 12/11/2023) Resolved Problems Problem Noted Date Diagnosed Date [...] as of this encounter (statuses as of 12/11/2023) Immunizations Name Administration Dates Next Due COVID-19, [...] encounter Miscellaneous Notes * Telephone Encounter - Ayala Redding RN - 12/11/2023 11:50 AM EDT Communication Note Name: Jerardo Brittany Ochoa Jr. Situation: Post hospital discharge phone call Background: Pt admitted to [facility] 12/05 - 12/08/2023 after presenting with SOB. Hospital Course: 53 yo male with past med history significant for type 2 diabetes, hyperlipidemia, obstructive sleepapnea, paroxysmal atrial fibrillation, cardiacamyloidosis, chronic heart failure with preserved ejection fraction, nonocclusive coronary disease, CKD stage III, congenital solitary right kidney, BPH,peripheral neuropathic pain, chemotherapy-induced neuropathy, degeneration of lumbosacral sacral disc, multiple myeloma without remission, statin intolerance, history of C diff,history of Salmonella gastroenteritis, comes because of flulike symptoms. Patient states his was diagnosed with COVID aweek ago. He was having some runny nose for 2 days that got resolved. Feeling fatigue and weak. Hewas also getting short of breath and could not take deep breath. Was worried about COVID and came to the ER. BioFire is negative. But CT scan showing bilateral moderate pleural effusions. Patient states when he was diagnosed with cancer in 2013 he had pleural effusions and had a thoracocentesis at that time. States takes torsemide as needed. Used to take torsemide daily but because of dehydrationcurrently taking as needed. He took 1 dose last week. He took 1 dose yesterday because of shortnessof breath. Usually takes when his ankle swells. Denies any fevers. Has some headache but that got resolved. Vision is okay. He had no earache. No runny nose. No sorethroat. He states he has had difficulty swallowing since last 1 year. Generally he tries to eat soft food. No nausea. Has some lower abdominal discomfort from constipation. States somewhat constipated since last 6 months. Denies any blood in stools or black stools. Micturating okay. No rash. Ambulates with a cane. Hemodynamics are okay. Pt reports prior to hospitalization he was ordered Torsemide daily but hadn't been taking it because of feeling dizzy and weak. He was diuresed with lasix during hospitalization. On discharge he was instructed to take Torsemide 2 days in a row and then every other day. Assessment: Pt reports he is feeling fatigued today. He was hypotensive and dizzy when he first woke up today with a BP of 80/60. He reports he fell in his home, witnessed by spouse. He has a small abrasion on his back from the fall. Denies hitting his head. He took his regular dose of Midodrine and subsequentBP was 135/80. He feels he was dehydrated and has been sipping on gatorade and water this am. He did not take Torsemide today due to the dizziness. Pt was advised to weigh daily, weight today is 133.4lb via home scale. Pt is prepping for Car T cell transplant. He is scheduled for a pre-donor evaluation at [facility] on 12/14 and collection of cells on 12/18. Pt agreeable to in home nurse visit on 12/15. Medication review per [facility] discharge summary. Pt verbalizes understanding of all medications. States he has all meds in the home. Recommendation: Continue medications as per discharge orders. Keep all scheduled medical appointments. Maintain hydration. Fall precautions - safety review. RNCM for in home visit on 12/15. Contact [facility] at [phone] with any red flags, changes in condition, or concerns. documented in this encounter Plan of Treatment Upcoming Encounters Date Type Department Care Team (Late st Contact Info) Description 12/16/2023 8:30 AM EDT Home Visit [facility], [facility] [address] [place] [address] Sulma Seth RN [address] [place] [address] 12/28/2023 9:50 AM EDT Anticoagulation Pharmacy, [address] [place] [address] [place] [address] 12/29/2023 9:00 AM EDT Office Visit Otolaryngology [facility] [address] [place] [address] Haley Aguero PA-C [address] [place] [address] 01/06/2024 2:30 PM EDT Home Visit [facility], [facility] [address] [place] [address] Sulma Seth RN [address] [place] [address] 01/19/2024 3:00 PM EDT Office Visit Cardiology, [facility] [address] [place] [address] Beth Gibbs CRNP [address] [place] [address] 03/08/2024 9:00 AM EDT Office Visit Cardiology [address] [place] [address] Tim Ruiz PA-C [address] [place] [address] 10/30/2024 1:45 PM EST Office Visit Urology, [facility] [address] [place] [address] Devyn Paniagua MD [address] [place] [address] [place] [address] Health Maintenance Due Date Last Done Comments [...] Additional history exists CKD HGB USE SMARTSET 39179 11/13/202411/13, 11/14/2023, 10/28/2023, Additional history exists CKD PHOS USE SMARTSET 27099 11/13/2024 03/0 12/2023, 10/28/2023, 08/16/2023, Additional history [...] this encounter Medical Devices Implanted Type Area Vest Front Presser Device Identifier Shelf Expiration Date Model / Serial / Lot Port Power Mri W/8fr Cath - [id number] Implanted:Qty: 1 on 09/26/2020 by Simone Michelle MD at OR [facility] Right: Chest CR BARD : PERIPHERAL VASCULAR 10/12/2021 [id number] / / [id number] Description:right IJ Lens Intraoc 19.0 - [id number] - [id number] Implanted:Qty: 1 on 02/03/2021 by Chris Sexton MD at OR [facility] Right: Eye [employer] 09/11/2025 [id number] / [id number] / Lens Intraoc 19.0 - [id number] - [id number] Implanted:Qty: 1 on 02/24/2021 by Chris Sexton MD at OR [facility] Left: Eye BAUSCH & LOMB 10/12/2025 [id number] / [id number] / [id number] System Urolift - [id number] Implanted:Qty: 2 on 03/17/2023 by Devyn Paniagua MD at OR [facility] N/A: Urethra [employer] 11/18/2023 [id number] / / [id number] System Urolift - [id number] Implanted:Qty: 3 on 03/17/2023 by Devyn Paniagua MD at OR [facility] N/A: Urethra [employer] 11/03/2023 [id number] / / [id number] documented as of this encounter Additional Health [...] were consensually agreed upon. Care Teams Station Engineer Relationship Specialty Start Date End Date Jaime Garcia MD [address] [place] [address] [place] [address] PCP - General Family Medicine 10/15/20 documented as of this encounter
--- OUTSIDE RECORDS SUMMARY | 2024-05-13 06:13 | External Medical Summary | Summary of Care ---
Author Name Unknown Organization [facility] Address [address] [place] [address] Phone [phone] Care Team Providers Care Tools And Parts Attendant Name Role Phone Jaime Garcia MD Primary Care Provide r Reason for Visit * Reason Onset Date Comments Advice 12/09/2023 FYI 12/09/2023 Encounter Details Date Type Department Care Team (Late st Contact Info) Description 12/09/2023 Telephone Family [address] [phone] Jaime Garcia MD [address] [place] [address] [place] [address] Advice; FYI Allergies Active Allergy Reactions Criticality Noted [...] Oral Tablet (Zovirax)Indication s:Lambda light chain myeloma ([facility]) Take one tablet once daily 180 [...] (Decadron)Indicatio ns:Multiple myeloma not having achieved remission ([facility]) 5 tabs 2 times monthly 10 [...] Information Patient taking differently: 50 mcg Oral [id number], Reported on 04/14/2023 Finasteride 5 MG Oral [...] morning. 180 Tablet 1 3 Active Pen [place] 32G X 4 MM Use as directed. [...] PM) 600 Tablet 3 3 Active Nystatin 465964 UNIT/ML Mouth/Throat SuspensionIndicatio ns:Multiple myeloma in relapse [...] encounter Miscellaneous Notes * Telephone Encounter - Praful Ramirez MED ASSIST - 12/12/2023 9:46 AM EDT Called pt and confirmed his monthly follow up telephone visits with Dr Amaral. JL * Telephone Encounter - Dede DecemberDEBBY - 12/09/2023 10:10 AM EDT Pt accidentally CXL his apt for 4.1.24 due to a hospital DC & would like to be scheduled back to 4.1.24 or sometime next week. Please contact pt documented in this encounter Plan of Treatment Upcoming Encounters Date Type Department Care Team (Late st Contact Info) Description 12/16/2023 8:30 AM EDT Home Visit [facility], [facility] [address] [place] [address] Sulma Seth, BOBBY [address] [place] [address] 12/28/2023 9:50 AM EDT [facility], [address] [place] [address] [place] [address] 12/29/2023 9:00 AM EDT Office Visit Otolaryngology [facility] [address] [place] [address] Haley Aguero PA-C [address] [place] [address] 01/06/2024 2:30 PM EDT Home Visit [facility], [facility] [address] [place] [address] Sulma Seth RN [address] [place] [address] 01/11/2024 9:00 AM EDT Telemedicine [facility] [address] [facility] [place] [address] Rosalio Amaral MD [address] [facility] [place] [address] 01/19/2024 3:00 PM EDT Office Visit Cardiology, [facility] [address] [place] [address] Beth Gibbs CRNP [address] [place] [address] 02/15/2024 1:30 PM EDT Telemedicine [facility] Tyree UGARTE [address] [place] [address] Rosalio Amaral MD [address] [place] [address] 03/08/2024 9:00 AM EDT Office Visit Cardiology [address] [place] [address] Tim Ruiz PA-C [address] [place] [address] 10/30/2024 1:45 PM EST Office Visit Urology, [facility] [address] [place] [address] Devyn Paniagua MD [address] [facility] [address] [place] [phone] Health Maintenance Due Date Last Done Comments [...] Additional history exists CKD HGB USE SMARTSET 02013 11/13/202411/13, 11/14/2023, 10/28/2023, Additional history exists CKD PHOS USE SMARTSET 69069 11/13/2024 03/0 12/2023, 10/28/2023, 08/16/2023, Additional history [...] encounter Medical Devices Implanted Type Area Manager Research Device Identifier Shelf Expiration Date Model / Serial / Lot Port Power Mri W/8fr Cath - [id number] Implanted:Qty: 1 on 09/26/2020 by Simone Michelle MD at OR [facility] Right: Chest CR BARD : PERIPHERAL VASCULAR 10/12/2021 [id number] / / [id number] Description:right IJ Lens Intraoc 19.0 - [id number] - [id number] Implanted:Qty: 1 on 02/03/2021 by Chris Sexton MD at OR [facility] Right: Eye [employer]USCH [employer]OM[employer] 09/11/2025 [id number] / [id number] / Lens Intraoc 19.0 - [id number] - [id number] Implanted:Qty: 1 on 02/24/2021 by Chris Sexton MD at OR [facility] Left: Eye BAUSCH & LOMB 10/12/2025 [id number] / [id number] / [id number] System Urolift - [id number] Implanted:Qty: 2 on 03/17/2023 by Devyn Paniagua MD at OR [facility] N/A: Urethra [employer] 11/18/2023 [id number] / / [id number] System Urolift - [id number] Implanted:Qty: 3 on 03/17/2023 by Devyn Paniagua MD at OR [facility] N/A: Urethra [employer] 11/03/2023 [id number] / / [id number] documented as of this encounter Additional Health [...] and were consensually agreed upon. Care Teams Tools And Parts Attendant Relationship Specialty Start Date End Date Jaime Garcia MD [address] [place] [address] [place] [phone] PCP - General Family Medicine 10/15/20 documented as of this encounter
--- OUTSIDE RECORDS SUMMARY | 2024-05-13 06:14 | External Medical Summary | Summary of Care ---
Author Name Unknown Organization [facility] Address [address] [place] [address] Phone [phone] Care Team Providers Care Tech Intern Name Role Phone Jaime Garcia MD Primary Care Provide r Reason for Visit * Reason Onset Date Comments [facility]: Maintenance 12/10/2023 Encounter Details Date Type Department Care Team (Late st Contact Info) Description 12/10/2023 11:30 AM EDT Scheduled Telephone [facility], [facility] 132 [place] [address] [employer], Nurse [facility] 132 [place] [address] Allergies Active Allergy Reactions Criticality Noted Date Comments Atorvastatin Muscle pain High 03/30/2019 Ezetimibe Muscle pain High 01/25/2020 documented as of this encounter (statuses as of 12/10/2023) Medications Medication Sig Dispensed Refills Start Date [...] Information Patient taking differently: 50 mcg Oral [id number], Reported on 04/14/2023 Finasteride 5 MG Oral [...] morning. 180 Tablet 1 3 Active Pen [place] 32G X 4 MM Use as directed. 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,Paroxysmal [...] as of this encounter (statuses as of 12/10/2023) Active Problems Problem Noted Date Diagnosed Date [...] as of this encounter (statuses as of 12/10/2023) Resolved Problems Problem Noted Date Diagnosed Date [...] as of this encounter (statuses as of 12/10/2023) Immunizations Name Administration Dates Next Due COVID-19, [...] encounter Miscellaneous Notes * Telephone Encounter - aPm Vinson, RN - 12/10/2023 9:31 AM EDT [facility] Telephonic Nurse Follow-Up Call [facility] Subprogram: Focused Care Management (3-9 months) Follow Up Call Type: Weekend Call Acute issue requiring follow-up call: Other: Post Hospital discharge from [facility] due to fluid overload, diuresis needed Objective: 12/06/2023 11:28 AM 11/21/2023 3:05 PM 11/14/2023 8:27 AM 10/28/2023 11:47 AM 10/28/2023 9:20 AM [facility]CROSS ENCOUNTERS BP 122/76 136/74 128/81 120/84 94/61 Pulse 74 88 93 96 Weight 67.6 kg 68.9 kg 66.9 kg BMI 22 kg/m2 22.45 kg/m2 21.77 kg/m2 Remote Patient Monitoring: NONE Oxygen Needs: NO supplemental oxygen needs identified DME Needs: NO DME needs identified Medications: No medication or dose adjustments made during acute episode Subjective: Condition Status: UTC Current Concerns: [place], message left for callback to [facility] with update post hospital discharge Disposition: Weekend call scheduled Future Visits Scheduled: Future Appointments-next 60 days Date/Time Provider Specialty Dept Phone 12/10/2023 11:30 AM [employer], Nurse [facility] [phone] 12/28/2023 9:50 AM [facility] [phone] 12/29/2023 9:00 AM (Arrive by 8:45 AM) Haley Aguero PA-C Otolaryngology [phone] 01/06/2024 2:30 PM Sulma Seth, BOBBY [facility] [phone] 01/19/2024 3:00 PM (Arrive by 2:45 PM) Beth Gibbs CRNP Cardiology [phone] 03/08/2024 9:00 AM (Arrive by 8:45 AM) Tim Ruiz PA-C Cardiology [phone] 10/30/2024 1:45 PM Devyn Panaigua MD Urology [phone] Pam Vinson, RN documented in this encounter Plan of Treatment Upcoming Encounters Date Type Department Care Team (Late st Contact Info) Description 12/11/2023 1:00 PM EDT Scheduled Telephone [facility] [place], [facility] [address] [place] [address] [employer], Nurse [address] [place] [address] 12/28/2023 9:50 AM EDT Anticoagulation Pharmacy, [address] [place] [address] [place] [address] 12/29/2023 9:00 AM EDT Office Visit Otolaryngology [facility] [address] [place] [address] aHley Aguero PA-C [address] [place] [address] 01/06/2024 2:30 PM EDT Home Visit [facility] [address] [place] [address] Sulma Seth RN [address] [place] [address] 01/19/2024 3:00 PM EDT Office Visit Cardiology, [facility] [address] [place] [address] Beth Gibbs CRNP [address] [place] [address] 03/08/2024 9:00 AM EDT Office Visit Cardiology [address] [place] [address] Tim Ruiz PA-C [address] [place] [address] 10/30/2024 1:45 PM EST Office Visit Urology, [facility] [address] [place] [address] Devyn Paniagua MD [address] [address] [place] [address] Health Maintenance Due Date Last Done Comments [...] Additional history exists CKD HGB USE SMARTSET 73159 11/13/202411/13, 11/14/2023, 10/28/2023, Additional history exists CKD PHOS USE SMARTSET 59520 11/13/2024 03/0 12/2023, 10/28/2023, 08/16/2023, Additional history [...] this encounter Medical Devices Implanted Type Area Coat Baster Device Identifier Shelf Expiration Date Model / Serial / Lot Port Power Mri W/8fr Cath - [id number] Implanted:Qty: 1 on 09/26/2020 by Simone Michelle MD at OR [facility] Right: Chest CR BARD : PERIPHERAL VASCULAR 10/12/2021 [id number] / / [id number] Description:right IJ Lens Intraoc 19.0 - [id number] - [id number] Implanted:Qty: 1 on 02/03/2021 by Chris Sexton MD at OR [facility] Right: Eye [employer]CH [employer]OMB 09/11/2025 [id number] / [id number] / Lens Intraoc 19.0 - [id number] - [id number] Implanted:Qty: 1 on 02/24/2021 by Chris Sexton MD at OR [facility] Left: Eye BAUSCH & LOMB 10/12/2025 [id number] / [id number] / [id number] System Urolift - [id number] Implanted:Qty: 2 on 03/17/2023 by Devyn Paniagua MD at OR [facility] N/A: Urethra [employer] 11/18/2023 [id number] / / [id number] System Urolift - [id number] Implanted:Qty: 3 on 03/17/2023 by Devyn Paniagua MD at OR [facility] N/A: Urethra [employer] 11/03/2023 EN411-9 / / [id number] documented as of this encounter Additional Health [...] and were consensually agreed upon. Care Teams Tech Intern Relationship Specialty Start Date End Date Jaime Garcia MD [address] [place] [address] [place] [address] PCP - General Family Medicine 10/15/20 documented as of this encounter
--- OUTSIDE RECORDS SUMMARY | 2024-05-13 06:14 | External Medical Summary ---
Author Name Unknown Address Unknown Organization K01:[facility] [facility] [address] Laboratory Report Ordering Provider Test Date Status NORBERT FITZGERALD 12/06/2023 11:47:27 Final Observation Date Value Abnormality Reference (Units ) Status SARS Coronavirus 2 12/06/2023 11:47:27 Negative N egative Final No SARS-CoV2 Coronavirus RNA detected by PCR (amplified probe).
This automated test was developed and its performance characteristics determined by [facility]. It has not been cleared or approved by the U.S. Food and Drug Administration (FDA). FDA does not require this test to go thru premarket FDA review. This test is used for clinical purposes. It should not be regarded as investigational or for research. This laboratory is certified under the Clinical Laboratory Improvement Amendments (CLIA) as qualified to perform high complexity clinical laboratory testing.

This test is a nucleic acid amplification test (NAAT), a reverse transcriptase polymerase chain reaction (RT-PCR) test, or a Centers for Disease Control-acceptable equivalent. The test is performed in a high complexity Clinical Laboratory Improvement Amendments-(CLIA) certified laboratory. The test is acceptable for SARS-CoV-2 diagnosis, surveillance, and travel within the [place] and to most countries. Please check with local testing authorities about requirements before travel.

The validation of bronchial specimens, tracheal aspirates, and sputum for this assay was developed and performance characteristics determined by [facility]. The validation of alternate specimen types has not been cleared or approved by the U.S. Food and Drug Administration (FDA). It has been determined that such clearance or approval is not necessary. Influenza virus A RNA [Prese nce] in Specimen by [facility]WIN with probe detection 12/06/2023 11:47:27 Negative Negative Final No Influenza A RNA detected by PCR (amplified probe) Influenza virus B RNA [Prese nce] in Specimen by EDWIN with probe detection 12/06/2023 11:47:27 Negative Negative Final No Influenza B RNA detected by PCR (amplified probe) Respiratory syncytial virus RNA [Identifier] in Specimen by EDWIN with probe detection 12/06/2023 11:47:27 Negative Negative Final No Respiratory Syncytial Vir us RNA detected by PCR (amplified probe) Performing Location [facility] [place] [address] [address] [facility] [address]
--- OUTSIDE RECORDS SUMMARY | 2024-05-13 06:14 | External Medical Summary | Summary of Care ---
Author Name Unknown Organization [facility] Address [address] [place] [address] Phone [phone] Care Team Providers Care Land Examiner Name Role Phone Jaime Garcia MD Primary Care Provide r Encounter Details Date Type Department Care Team (Late st Contact Info) Description 12/09/2023 3:30 PM EDT Telemedicine [facility] Tyree UGARTE [address] [facility] [place] [address] Rosalio Amaral MD [address] [facility] [place] [address] Multiple myeloma in relapse (HCC)* Allergies Active Allergy Reactions Criticality Noted Date Comments Atorvastatin Muscle pain High 03/30/2019 Ezetimibe Muscle pain High 01/25/2020 documented as of this encounter (statuses as of 12/09/2023) Medications Medication Sig Dispensed Refills Start Date [...] Information Patient taking differently: 50 mcg Oral [id number], Reported on 04/14/2023 Finasteride 5 MG Oral [...] morning. 180 Tablet 1 3 Active Pen [place] 32G X 4 MM Use as directed. [...] PM) 600 Tablet 3 3 Active Nystatin 347131 UNIT/ML Mouth/Throat SuspensionIndicatio ns:Multiple myeloma in relapse [...] fibrillation, unspecified type (HCC),Anticoagulati on management encounter,manager long term care current use [...] as of this encounter (statuses as of 12/09/2023) Active Problems Problem Noted Date Diagnosed Date [...] as of this encounter (statuses as of 12/09/2023) Resolved Problems Problem Noted Date Diagnosed Date [...] as of this encounter (statuses as of 12/09/2023) Immunizations Name Administration Dates Next Due COVID-19, [...] Progress Notes * Rosalio Amaral MD - 12/09/2023 4:43 PM EDT CLINIC NOTES JERARDO WALTON MR #[id number] : 1970 Patient location: HOME. I was in a hospital or clinic location. After connecting through [employer],patient was verified with two unique identifiers. Patient (or authorized legal mechanical service representative) was then informed that this was a Telemedicine visit and being conducted confidentially over secure lines. Methods to assure confidentiality were taken. Patient acknowledged consent and understanding of pr ivacy and security of the Telemedicine visit. The patient agreed to participate. 12/09/2023 PATIENT REFERRED BY: Jaime Garcia MD. Also [...] immunoglobulin replacement. He stayed up late playing poDistill on Tuesday nights. He had GI issues, [...] neuropathy. INTERIM: The patient was last reviewed 11/10/2023 he had been off therapy for a [...] was just started back in October 2023. Patient had diarrhea previously recurrent Salmonella x2 Patient has been reviewed by Jeffy He is due for cart T evaluation on 12/15/2023, pending collection 12/19/2023 Patient what apparently was a brief hospitalization at [facility] for fluid overload he had held on his diuretic for a period of time after having a period of hypotension and then developed some overload requiring some diuresis He recently started back on chemotherapy in November after being off from July 2023 through November of 2023 Patient has an IgG kappa serum protein-with his IgG kappa being less than 0.5 And a urinary lambda paraprotein-most recent lambda light chain what 111 Latest Reference Range & Units 10/17/20 07:43 [...] in the morning. 180 Tablet 1 Pen [place] 32G X 4 MM Use as directed. [...] later than 6 PM) 600 Tablet 3 Nystatin 318272 UNIT/ML Mouth/Throat Suspension Swish and swallow 5 [...] orders placed or performed in visit on 11/14/23 CBC Result Value Ref Range WBC 7.14 4.00 - 10.80 K/uL RBC 4.35 4.50 - 5.25 M/uL HGB 13.8 (L) 14.0 - 16.8 g/dL HCT 41.0 40.0 - 48.4 % MCV 94.3 82.0 - 99.5 fL MCH 31.7 27.0 - 34.0 pg MCHC 33.7 32.0 - 36.0 g/dL RDW 15.9 11.5 - 15.5 % PLT 346 140 - 400 K/uL MPV 9.9 6.6 - 11.1 fL IMPRESSION: Patient with [...] post recent salmonella sepsis hospitalized at the [place] Likely autonomic dysfunction, manifested by orthostatic hypotension, dysphagia, gastric emptying PLAN: For cart Continue newly Resumed chemo-now in November Monthly returns for now Will send again for Salmonella as he was having intermittent diarrhea-has had this in the [facility] 14 minutes of phone time; 30 minute visit This was a telephone visit. 13 minutes of medical discussion Rosalio Amaral MD documented in this encounter Plan of Treatment Upcoming Encounters Date Type Department Care Team (Late st Contact Info) Description 12/10/2023 11:30 AM EDT Scheduled Telephone [facility], [facility] [address] [place] [address] [facility], Nurse [facility] [address] [place] [address] 12/28/2023 9:50 AM EDT Anticoagulation Pharmacy, [address] [place] [address] [place] [address] 12/29/2023 9:00 AM EDT Office Visit Otolaryngology [facility] [address] [place] [address] Haley Aguero PA-C [address] [place] [address] 01/06/2024 2:30 PM EDT Home Visit [facility] [place], [facility] [address] [place] [address] Sulma Seth, BOBBY [address] [place] [address] 01/19/2024 3:00 PM EDT Office Visit Cardiology, [facility] [address] [place] [address] Beth Gibbs CRNP [address] [place] [address] 03/08/2024 9:00 AM EDT Office Visit Cardiology [address] [place] [address] Tim Ruiz PA-C [address] [place] [address] 10/30/2024 1:45 PM EST Office Visit Urology, [facility] [address] [place] [address] Devyn Paniagua MD [address] [facility] [address] [place] [address] Scheduled Orders Name Type Priority Associated Diagnoses Orde r Schedule CBC WITH WBC DIFFERENTIAL Lab STAT Multiple myeloma in relapse (HCC) Ordered: 12/09/2023 COMPREHENSIVE METABOLIC PANEL Lab STAT Multiple myeloma in relapse ([facility]) Ordered: 12/09/2023 IMMUNOGLOBULIN QUANTITATIVE Lab Routine Multiple myeloma in relapse ([facility]) Ordered: 12/09/2023 URINE IMMUNOFIXATION, BENCE PATTERSON PROTEIN, RANDOM URINE Lab Routine Multiple myeloma in relapse ([facility]) Ordered: 12/09/2023 SERUM PROTEIN ELECTROPHORESIS REFLEX PROFILE Lab Routine Multiple myeloma in relapse ([facility]) Ordered: 12/09/2023 SERUM FREE LIGHT CHAINS Lab Routine Multiple myeloma in relapse ([facility]) Ordered: 12/09/2023 LD Lab STAT Multiple myeloma in relapse ([facility]) Ordered: 12/09/2023 ALBUMIN / CREATININE RATIO, URINE Lab Routine Multiple myeloma in relapse ([facility]) Ordered: 12/09/2023 BNP, NT-PRO Lab Routine Multiple myeloma in relapse ([facility]) Ordered: 12/09/2023 URINE PROTEIN ELECTROPHORESIS REFLEX PROFILE, RANDOM URINE Lab Routine Multiple myeloma in relapse (HCC) Every Month for 66 Occurrences starting 12/09/2023 until 12/08/2024 SERUM PROTEIN ELECTROPHORESIS REFLEX PROFILE Lab STAT Multiple myeloma in relapse (HCC) Ordered: 12/09/2023 CBC WITH WBC DIFFERENTIAL Lab STAT Multiple myeloma in relapse (HCC) Every Month for 66 Occurrences starting 12/09/2023 until 11/23/2024 COMPREHENSIVE METABOLIC PANEL Lab STAT Multiple myeloma in relapse (HCC) Every Month for 66 Occurrences starting 12/09/2023 until 11/23/2024 IMMUNOGLOBULIN QUANTITATIVE Lab STAT Multiple myeloma in relapse (HCC) Every Month for 66 Occurrences starting 12/09/2023 until 11/23/2024 URINE PROTEIN ELECTROPHORESIS REFLEX PROFILE, RANDOM URINE Lab STAT Multiple myeloma in relapse (HCC) Every Month for 66 Occurrences starting 12/09/2023 until 11/23/2024 URIC ACID Lab STAT Multiple myeloma in relapse (HCC) Every Month for 66 Occurrences starting 12/09/2023 until 11/23/2024 LD Lab STAT Multiple myeloma in relapse (HCC) Every Month for 66 Occurrences starting 12/09/2023 until 11/23/2024 SERUM PROTEIN ELECTROPHORESIS REFLEX PROFILE Lab STAT Multiple myeloma in relapse (HCC) Every Month for 66 Occurrences starting 12/09/2023 until 11/23/2024 SERUM FREE LIGHT CHAINS Lab STAT Multiple myeloma in relapse (HCC) Every Month for 66 Occurrences starting 12/09/2023 until 11/23/2024 VITAMIN B12 Lab STAT Multiple myeloma in relapse (HCC) Every 6 Months for 6 Occurrences starting 12/09/2023 until 12/08/2024 PT INR Lab STAT Multiple myeloma in relapse (HCC) Every 6 Months for 6 Occurrences starting 12/09/2023 until 12/08/2024 ALBUMIN / CREATININE RATIO, URINE Lab STAT Multiple myeloma in relapse (HCC) Every Month for 66 Occurrences starting 12/09/2023 until 11/23/2024 BNP, NT-PRO Lab STAT Multiple myeloma in relapse (HCC) Every Month for 66 Occurrences starting 12/09/2023 until 11/23/2024 TROPONIN T, HIGH SENSITIVITY Lab STAT Multiple myeloma in relapse (HCC) Every Month for 66 Occurrences starting 12/09/2023 until 11/23/2024 Health Maintenance Due Date Last Done Comments [...] Additional history exists CKD HGB USE SMARTSET 06550 11/13/202411/13, 11/14/2023, 10/28/2023, Additional history exists CKD PHOS USE SMARTSET 15852 11/13/2024 03/0 12/2023, 10/28/2023, 08/16/2023, Additional history [...] this encounter Medical Devices Implanted Type Area Cotton Inspector Device Identifier Shelf Expiration Date Model / Serial / Lot Port Power Mri W/8fr Cath - [id number] Implanted:Qty: 1 on 09/26/2020 by Simone Michelle MD at OR [facility] Right: Chest CR BARD : PERIPHERAL VASCULAR 10/12/2021 [id number] / / [id number] Description:right IJ Lens Intraoc 19.0 - [id number] - [id number] Implanted:Qty: 1 on 02/03/2021 by Chris Sexton MD at OR [facility] Right: Eye BAUSCH & LOMB 09/11/2025 [id number] / [id number] / Lens Intraoc 19.0 - [id number] - [id number] Implanted:Qty: 1 on 02/24/2021 by Chris Sexton MD at OR [facility] Left: Eye BAUSCH & LOMB 10/12/2025 [id number] / [id number] / [id number] System Urolift - [id number] Implanted:Qty: 2 on 03/17/2023 by Devyn Paniagua MD at OR [facility] N/A: Urethra [employer] 11/18/2023 [id number] / / [id number] System Urolift - [id number] Implanted:Qty: 3 on 03/17/2023 by Devyn Paniagua MD at OR [facility] N/A: Urethra [employer] 11/03/2023 [id number] / / [id number] documented as of this encounter Visit Diagnoses [...] and were consensually agreed upon. Care Teams Land Examiner Relationship Specialty Start Date End Date Jaime Garcia MD [address] [place] [address] [place] [phone] PCP - General Family Medicine 10/15/20 documented as of this encounter
--- OUTSIDE RECORDS SUMMARY | 2024-05-13 06:14 | External Medical Summary | Summary of Care ---
Author Name Unknown Organization [facility] Address [address] [place] [address] Phone [phone] Care Team Providers Care Lifter Driver Name Role Phone Jaime Garcia MD Primary Care Provide r Reason for Visit * Reason Onset Date Comments Pre Cert/Prior Auth 12/08/2023 Repatha sure click 140 Encounter Details Date Type Department Care Team (Late st Contact Info) Description 12/08/2023 Telephone Cardiology, [place] [address] [facility] [place] [id number] Beth Salter CRNP [address] [place], [place] [id number] Pre Cert/Prior Auth (Repatha sureclick 140) Allergies Active Allergy Reactions Criticality Noted Date Comments Atorvastatin Muscle pain High 03/30/2019 Ezetimibe Muscle pain High 01/25/2020 documented as of this encounter (statuses as of 12/08/2023) Medications Medication Sig Dispensed Refills Start Date [...] (Zovirax)Indication s: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 180 Tablet 1 3 Active Pen [place] 32G X 4 MM Use as directed. [...] PM) 600 Tablet 3 3 Active Nystatin 844048 UNIT/ML Mouth/Throat SuspensionIndicatio ns:Multiple myeloma in relapse [...] fibrillation, unspecified type (HCC),Anticoagulati on management encounter,[facility] current use of anticoagulant [...] as of this encounter (statuses as of 12/08/2023) Active Problems Problem Noted Date Diagnosed Date [...] as of this encounter (statuses as of 12/08/2023) Resolved Problems Problem Noted Date Diagnosed Date [...] as of this encounter (statuses as of 12/08/2023) Immunizations Name Administration Dates Next Due COVID-19, [...] Miscellaneous Notes * Telephone Encounter - Evelina Wagner, automated teller manager - 12/08/2023 12:26 PM EDT Pharmacy calling to inform doctor that the patient's insurance will not pay for this medication without a completed prior authorization. Did confirm this information with the pharmacy. Pt's current insurance information is as follows: Patient name: Jerardo Ochoa JrIsabel ID number: [id number] BIN number: [id number] PCN number: [id number] Group number: [id number] Subscriber name: Jerardo Ochoa JrIsabel Primary or Secondary Insurance:Primary Medication: repatha sureclick 140 Reason for Request: prior auth required Pharmacy and phone number: [facility] [phone] Rx plan and phone number: [facility] self [phone] Is this a new medication for the patient? Yes What alternative medications does the pharmacy have in stock?: none Thank you, Evelina Wagner CphT [facility]) (formerly Telepharmacy) 12/08/2023,12:26 PM documented in this encounter Plan of Treatment Upcoming Encounters Date Type Department Care Team (Late st Contact Info) Description 12/09/2023 3:30 PM EDT Telemedicine [facility] Tyree UGARTE [address] [facility] [place] [address] Rosalio Amaral MD [address] [facility] [place] [address] 12/12/2023 1:20 PM EDT Office Visit Family Medicine [address] [place] [phone] Shruti Felix [address] [place] [address] 12/28/2023 9:50 AM EDT Anticoagulation Pharmacy, [address] [place] [address] [place] [address] 12/29/2023 9:00 AM EDT Office Visit Otolaryngology [facility] [address] [place] [address] Haley Aguero PA-C [address] [place] [address] 01/06/2024 2:30 PM EDT [facility] Visit [place] [facility] [address] [address] Sulma Seth, BOBBY [address] [place] [address] 03/08/2024 9:00 AM EDT Office Visit Cardiology [address] [place] [address] Tim Ruiz PA-C [address] [place] [address] 10/30/2024 1:45 PM EST Office Visit Urology, [facility] [address] [address] Devyn Paniagua MD [address] [place] [address] [place] [phone] Health Maintenance Due Date Last Done Comments [...] Additional history exists CKD HGB USE SMARTSET 99854 11/13/202411/13, 11/14/2023, 10/28/2023, Additional history exists CKD PHOS USE SMARTSET 66870 11/13/2024 03/0 12/2023, 10/28/2023, 08/16/2023, Additional history [...] this encounter Medical Devices Implanted Type Area Cigarette Packer Device Identifier Shelf Expiration Date Model / Serial / Lot Port Power Mri W/8fr Cath - [id number] Implanted:Qty: 1 on 09/26/2020 by Simone Michelle MD at OR [facility] Right: Chest CR BARD : PERIPHERAL VASCULAR 10/12/2021 [id number] / / [id number] Description:right IJ Lens Intraoc 19.0 - [id number] - [id number] Implanted:Qty: 1 on 02/03/2021 by Chris Sexton MD at OR [facility] Right: Eye BAUSCH & LOMB 09/11/2025 [id number] / [id number] / Lens Intraoc 19.0 - [id number] - [id number] Implanted:Qty: 1 on 02/24/2021 by Chris Sexton MD at OR [facility] Left: Eye BAUSCH & LOMB 10/12/2025 [id number] / [id number] / [id number] System Urolift - [id number] Implanted:Qty: 2 on 03/17/2023 by Devyn Paniagua MD at OR [facility] N/A: Urethra [employer] 11/18/2023 TV090-8 / / [id number] System Urolift - [id number] Implanted:Qty: 3 on 03/17/2023 by Devyn Paniagua MD at OR [facility] N/A: Urethra [employer] 11/03/2023 NO599-6 / / [id number] documented as of this encounter Additional Health [...] and were consensually agreed upon. Care Teams Lifter Driver Relationship Specialty Start Date End Date Jaime Garcia MD [address] [place] [address] [place] [phone] PCP - General Family Medicine 10/15/20 documented as of this encounter
--- OUTSIDE RECORDS SUMMARY | 2024-05-13 06:14 | External Medical Summary | Summary of Care ---
Author Name Unknown Organization [facility] Address [address] [place] [address] Phone [phone] Care Team Providers Care Library Customer Service Clerk Name Role Phone Jaime Garcia MD Primary Care Provide r Reason for Visit * Reason Comments Acute Encounter Details Date Type Department Care Team (Late st Contact Info) Description 12/06/2023 11:40 AM EDT Office Visit Family Medicine [address] [phone] Umu Mcdermott PA-C [address] [place] [address] [place] [address] SOB (shortness of breath)* Allergies Active Allergy Reactions Criticality Noted Date Comments Atorvastatin Muscle pain High 03/30/2019 Ezetimibe Muscle pain High 01/25/2020 documented as of this encounter (statuses as of 12/06/2023) Medications Medication Sig Dispensed Refills Start Date [...] of less than 7.0% ([facility]) Use as directed daily. Test once daily DxE11.9 100 Strip 5 1 Active LancetsIndications: Type 2 diabetes mellitus with hemoglobin A1c goal of less than 7.0% ([facility]) Test once daily DxE11.9. 100 Each 5 1 Active Albuterol Sulfate HFA 108 (90 Base) MCG/ACT Inhalation Aerosol SolutionIndications :Acute bronchitis, antibiotics not indicated Inhale 2 Puffs by mouth every 6 hours as needed for Cough or Shortness of Breath. 54 g 1 1 Active Acyclovir 400 MG Oral Tablet (Zovirax)Indication s:Lambda light chain myeloma ([facility]) Take one tablet once daily 180 [...] myeloma not having achieved remission ([facility]) 5 tabs 2 times monthly 10 [...] Information Patient taking differently: 50 mcg Oral [id number], Reported on 04/14/2023 Finasteride 5 MG Oral [...] morning. 180 Tablet 1 3 Active Pen [place] 32G X 4 MM Use as directed. [...] PM) 600 Tablet 3 3 Active Nystatin 574603 UNIT/ML Mouth/Throat SuspensionIndicatio ns:Multiple myeloma in relapse ([facility]) Swish [...] Oral Tablet (Coumadin)Indicatio ns:Atrial fibrillation, unspecified type ([facility]),Anticoagulati on management encounter,terminologist current use of anticoagulant therapy,Paroxysmal atrial fibrillation [...] as of this encounter (statuses as of 12/06/2023) Active Problems Problem Noted Date Diagnosed Date [...] 06/14/2014 Overview: Dr Rodriges/ [facility] DIRECTIVE INFORMATION 10/13/2006 Overview: No, Advance Directive brochure offered , patient declined. Degeneration of lumbosacral intervertebral disc 02/19/2005 documented as of this encounter (statuses as of 12/06/2023) Resolved Problems Problem Noted Date Diagnosed Date [...] as of this encounter (statuses as of 12/06/2023) Immunizations Name Administration Dates Next Due COVID-19, [...] Sign Reading Time Taken Comments Blood Pressure 122/76 12/06/2023 11:28 AM EDT Pulse 74 12/06/2023 11:28 AM EDT Temperature 36.6 C (97.8 F) 12/06/2023 11:28 AM E DT Respiratory Rate 16 12/06/2023 11:28 AM EDT Oxygen Saturation - - Inhaled Oxygen Concentration - - Weight 67.6 kg (149 lb) 12/06/2023 11:28 AM EDT Height - - Body Mass Index 22 10/04/2023 10:42 AM EST documented in this encounter Progress Notes * Umu Mcdermott PA-C - 12/06/2023 11:41 AM EDT Nursing Notes: Rosemary Kerr RN 12/06/23 1134 Sign at exiting of workspace Pt was exposed to Covid last week, by his . Pt states he has had a runny nose for a couple days, last night he had difficulty breathing( but pt has hx of lung issues) just feels like he can not get a full breath, especially if he lies flat He vomited once today Pt states that his was diagnosed with covid last week. Pt states that he has been having a runny nose, SOB, cough, vomiting for the past couple days. Pt states that the vomiting is gone. The runny nose has cleared. Pt still with mild SOB. He does have lung issues and a pleural effusion in his right lung. He is worried about pneumonia. Pt denies cough, fever, chills, nausea, diarrhea, chest pain, sore throat, ear pain. Review of patient's allergies indicates: Allergen Reactions [...] in the morning. 180 Tablet 1 Pen [place] 32G X 4 MM Use as directed. [...] than 6 PM) 600 Tablet 3 Nystatin 593137 UNIT/ML Mouth/Throat Suspension Swish and swallow 5 [...] visit. Past Medical History: Diagnosis Date A-fib ([facility]) Adjustment disorder with depressed mood C. 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 rate 16, weight 67.6 kg (149 lb). GENERAL: alert and no distress NECK: supple, no adenopathy EYES: PERRLA, conjunctiva are pink and non-injected, sclera clear EARS: External ears normal, Canals clear, TM's Normal NOSE: no mucosal erythema, no mucosal edema, no purulent discharge OROPHARYNX: no exudate, no erythema, lips, buccal mucosa, and tongue normal, and mucous membranes are moist HEART: regular rate & rhythm, no murmur, and no gallops LUNGS: chest symmetric with normal AP diameter, no chest deformities noted, no chest wall tenderness, lungs clear to auscultation A:SOB (shortness of breath) (Primary) - XR CHEST 2 VIEWS - INFLUENZA A/B RSV SARS-COV2,PCR; Future; Expected date: 12/06/2023 - INFLUENZA A/B RSV SARS-COV2,PCR Will xray chest. ATTORNEY LAW CLERK swab. Rest, fluids. Any questions/problems, please call. If anything changes, worsens, develops new sx, please call [facility]. Follow Up: Return if symptoms worsen or fail to improve. Umu Mcdermott PA-C documented in this encounter Nursing Notes * Rosemary Kerr, RN - 12/06/2023 11:28 AM EDT Pt was exposed to Covid last week, by his . Pt states he has had a runny nose for a couple days, last night he had difficulty breathing( but pt has hx of lung issues) just feels like he can not get a full breath, especially if he lies flat He vomited once today documented in this encounter Plan of Treatment Upcoming Encounters Date Type Department Care Team (Late st Contact Info) Description 12/09/2023 3:30 PM EDT Telemedicine [facility] Tyree UGARTE [address] [facility] [place] [address] Rosalio Amaral MD [address] [facility] [place] [address] 12/15/2023 8:30 AM EDT Office Visit Cardiology, [facility] [address] [place] [address] Beth Gibbs CRNP [address] [place] [address] 12/28/2023 9:50 AM EDT Anticoagulation Pharmacy, [address] [place] [phone] [place] [address] 12/29/2023 9:00 AM EDT Office Visit [facility]ol[facility] [address] [place] [address] Haley Aguero PA-C [address] [place] [address] 01/06/2024 2:30 PM EDT [facility] [address] [place] [address] Sulma Seth, BOBBY [address] [place] [address] 03/08/2024 9:00 AM EDT Office Visit Cardiology [address] [place] [address] Tim Ruiz PA-C [address] [place] [address] 10/30/2024 1:45 PM EST Office Visit Urology, [facility] [address] [place] [address] Devyn Paniagua MD [address] [place] [address] Pending Results Name Type Priority Associated Diagnoses Date /Time XR CHEST 2 VIEWS Medical Imaging Routine SOB (shortness of breath) 12/06/2023 12:03 PM EDT INFLUENZA A/B RSV SARS-COV2,PCR Lab Routine SOB (shortness of breath) 12/06/2023 11:47 AM EDT Scheduled Orders Name Type Priority Associated Diagnoses Orde r Schedule INFLUENZA A/B RSV SARS-COV2,PCR Lab Routine SOB (shortness of breath) Expected: 12/06/2023 (Approximate), Expires: 12/05/2024 Health Maintenance Due Date Last Done Comments [...] Additional history exists CKD HGB USE SMARTSET 21271 11/13/202411/13, 11/14/2023, 10/28/2023, Additional history exists CKD PHOS USE SMARTSET 78507 11/13/2024 03/0 12/2023, 10/28/2023, 08/16/2023, Additional history [...] this encounter Medical Devices Implanted Type Area Roads [employer] Parking Lots Sweeper Operator Device Identifier Shelf Expiration Date Model / Serial / Lot Port Power Mri W/8fr Cath - [id number] Implanted:Qty: 1 on 09/26/2020 by Simone Michelle MD at OR [facility] Right: Chest CR BARD : PERIPHERAL VASCULAR 10/12/2021 [id number] / / [id number] Description:right IJ Lens Intraoc 19.0 - [id number] - [id number] Implanted:Qty: 1 on 02/03/2021 by Chris Sexton MD at OR [facility] Right: Eye [employer] 09/11/2025 [id number] / [id number] / Lens Intraoc 19.0 - [id number] - [id number] Implanted:Qty: 1 on 02/24/2021 by Chris Sexton MD at OR [facility] Left: Eye [employer] 10/12/2025 [id number] / [id number] / [id number] System Urolift - [id number] Implanted:Qty: 2 on 03/17/2023 by Devyn Paniagua MD at OR [facility] N/A: Urethra [employer] 11/18/2023 [id number] / / [id number] System Urolift - [id number] Implanted:Qty: 3 on 03/17/2023 by Devyn Paniagua MD at OR [facility] N/A: Urethra [employer] 11/03/2023 [id number] / / [id number] documented as of this encounter Visit Diagnoses Diagnosis SOB (shortness of breath)- Primary Shortness of breath documented in this encounter Additional Health Concerns [...] and were consensually agreed upon. Care Teams Library Customer Service Clerk Relationship Specialty Start Date End Date Jaime Garcia MD [address] [place] [address] [place] [id number] PCP - General Family Medicine 10/15/20 documented as of this encounter
[2024-05-13 06:29] LABS: Appearance Urine Clear (Clear); Bacteria Urine Automated None Seen (None Seen); Bilirubin Urine Negative (Negative); Blood Urine Negative (Negative); Cast Urine Automated 0-2 /lpf (0-2); Color Urine Yellow; Epithelial Cell Urine Auto 0-2 /hpf (0-2); Glucose Urine UA Negative (Negative); Ketones Urine Negative (Negative); Leukocyte Esterase Urine Negative (Negative); Nitrite Urine Negative (Negative); Protein Urine 1+ (Negative); RBC Urine Automated 0-2 /hpf (0-2); Specific Gravity Urine 1.007 (1.000-1.030); Urobilinogen Urine Negative (Negative); WBC Urine Automated 0-5 /hpf (0-5)
--- NOTE | 2024-05-13 06:37 | Emergency Department Note ---
History of Present Illness General Chief complaint: Respiratory Problems Stated complaint: HARD TO BREATHE,HX OF FLUID IN LUNGS Time Seen by Provider: 05/13/24 06:36 Source: patient, family ( was at the bedside), RN notes reviewed and old records reviewed (12/06/23-discharge summary from when the patient was admitted for pleural effusions and CHF) Mode of arrival: ambulatory Limitations: no limitations History of Present Illness This patient is a 54-year-old male who has very complex medical history, comes in complaining of shortness of breath which developed overnight. He does wear oxygen at night as needed. He woke up last night felt very short of breath. He had no recent illness or cough no chest pain shortness of breath he is on Eliquis for A-fib no history of DVT or PE. He does have a history of multiple myeloma he was hospitalized in February at [facility] for T-cell cart infusion and his says that since then he has just been very deconditioned he does have history of pleural effusions that are recurrent and has a history of CHF he said no lower extremity edema. No recent fall or trauma no blood or melena stool no abdominal pain does get chronic nausea but nothing worse lately. He does take boost and has had trouble with his nutrition lately. Home Medications Medication Instructions Recorded Confirmed Type acyclovir 400 mg tablet 400 mg PO DAILY 09/15/23 05/13/24 History cholecalciferol (vitamin D3) 50 6,000 unit PO DAILY 09/15/23 05/13/24 History mcg (2,000 unit) capsule (Vitamin D3) duloxetine 20 mg capsule,delayed 40 mg PO DAILY 09/15/23 05/13/24 History release evolocumab 140 mg/mL subcutaneous 140 mg subcut .Q2WKS 09/15/23 05/13/24 History pen injector (Sherry Doran) finasteride 5 mg tablet 5 mg PO DAILY 09/15/23 05/13/24 History folic acid 400 mcg tablet 400 mcg PO DAILY 09/15/23 05/13/24 History icosapent ethyl 1 gram capsule 2 g PO BIDM 09/15/23 05/13/24 History levothyroxine 50 mcg tablet 50 mcg PO DAILYBB 09/15/23 05/13/24 History magnesium chloride 64 mg 64 mg PO BID 09/15/23 05/13/24 History (magnesium chloride) tablet,delayed release (Mag 64) metformin 500 mg tablet,extended 1,000 mg PO DAILY 09/15/23 05/13/24 History release 24 hr ondansetron HCl 8 mg tablet 8 mg PO TID PRN Nausea And Vomiting 09/15/23 05/13/24 History oxycodone 5 mg tablet 5 mg PO Q4H PRN Pain 09/15/23 05/13/24 History pantoprazole 20 mg tablet,delayed 20 mg PO DAILY 09/15/23 05/13/24 History release tenofovir alafenamide 25 mg tablet 25 mg PO DAILY 09/15/23 05/13/24 History (Vemlidy) albuterol sulfate 90 mcg/actuation 2 puff inhalation Q6H PRN 12/06/23 05/13/24 History aerosol inhaler Shortness Of Breath/COUGH allopurinol 100 mg tablet 100 mg PO DAILY 12/06/23 05/13/24 History epinephrine 0.3 mg/0.3 mL 0.3 mg IM DIRECTED PRN SEVERE 12/06/23 05/13/24 History injection, auto-injector (EpiPen) ALLERGIC REACTION polyethylene glycol 3350 17 gram 17 g PO DAILY PRN Constipation 12/06/23 05/13/24 History oral powder packet (Miralax) prochlorperazine maleate 10 mg 10 mg PO Q6H PRN Nausea 12/06/23 05/13/24 History tablet (Compazine) torsemide 10 mg tablet 10 mg PO QAM PRN EDEMA/FLUID 12/06/23 05/13/24 History RETENTION apixaban 5 mg tablet (Eliquis) 5 mg PO BID 05/13/24 05/13/24 History fludrocortisone 0.1 mg tablet 0.1 mg PO DAILY 05/13/24 05/13/24 History hydrocortisone 5 mg tablet 15 mg PO DAILY 05/13/24 05/13/24 History mirtazapine 15 mg tablet 15 mg PO PM 05/13/24 05/13/24 History nystatin 100,000 unit/mL oral 100,000 unit PO TID 05/13/24 05/13/24 History suspension Allergies Allergy/AdvReac Type Severity Reaction Status Date / Time [id number] Reductase AdvReac Intermediate MUSCLE Verified 12/06/23 19:37 Inhibitor PAIN WITH ATORVASTATIN & ZETIA NSAIDS (Non-Steroidal AdvReac Unknown Advised by Verified 12/06/23 19:37 Anti-Inflamma nephrology to avoid d/t CKD Past Med/Surg History Problem List (Updated 05/13/24 @ 14:28 by José Luis Moser MD) CHF (congestive heart failure) (Acute) Multiple myeloma (Acute) Acute on chronic combined systolic and diastolic CHF, NYHA class 2 Elevated troponin I level (Acute) Weakness (Acute) Pleural effusion, bilateral (Acute) SOB (shortness of breath) (Acute) Diarrhea (Acute) Salmonella enteritis (Acute) Ambulatory dysfunction DEBBY (obstructive sleep apnea) ARSENIO (acute kidney injury) (Acute) Orthostatic hypotension Autonomic dysfunction Hypotension (Acute) Multiple myeloma without remission Hypocalcemia (Acute) Hypomagnesemia (Acute) Dysphagia Pancreatic cyst Encounter for pre-operative examination Multiple myeloma (Chronic) 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 Hypertension GERD (gastroesophageal reflux disease) Exertional dyspnea Atrial fibrillation Paroxysmal atrial fibrillation Pneumonia (Acute) Multiple myeloma (Acute) Dyspnea (Acute) Hemoptysis Depression DVT prophylaxis COVID-19 (Acute) Elevated troponin (Acute) SOB (shortness of breath) (Acute) Pneumonia due to COVID-19 virus Acute renal failure superimposed on stage 3a chronic kidney disease Fever (Acute) Parainfluenza infection (Acute) Cough (Acute) Syncope and collapse Syncope (Acute) Current use of chcf anticoagulation (Acute) Lab test negative for COVID-19 virus (Acute) Diabetes type 2, uncontrolled CKD (chronic kidney disease) stage 3, GFR 30-59 ml/min Severe sepsis 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 Cook, last seen 04/2023- advised to avoid NSAIDs completely Hypothyroidism DM type 2 (diabetes mellitus, type 2) HLD (hyperlipidemia) Sleep apnea CPAP + 2 LPM O2 Dysphagia History of depression Multiple myeloma Dx 2013, currently on Chemo 1xwk on Fridays Follows with [facility] Surgical History History of surgery vasectomy reversal History of surgery Urolift History of vascular access device Right chest port (type unknown) History of cataract surgery History of cardiac cath Right heart cath (2018) History of colonoscopy History of esophagogastroduodenoscopy (EGD) H/O vasectomy Family History Father No problems noted. Mother No problems noted. 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 Required: No Beliefs That Will Affect Care: None marital status: marital status details: twice - 3 children in total between the 2 marriages Current Living Situation: Spouse Current Living Situation Comment: and daughter current occupational status: disabled current occupation: previously worked at [employer] Other Information That Helps Us Care for You: No Feels Safe at Home: Yes Assistive Devices: Cane Review of Systems A total of 10 systems reviewed and were otherwise negative Physical Exam Vital Signs Vital Signs - 24 hr 05/13/24 05:51 05/13/24 05:54 05/13/24 05:54 Temperature 36.6 C Temperature Source Temporal Artery Scan Pulse Rate 98 H 97 H Pulse Rate [Apical] Pulse Rhythm Regular Respiratory Rate 18 20 Respiratory Effort / Characteristics Non-Labored Spontaneous Respiratory Depth Normal Respiratory Pattern Regular Blood Pressure 110/80 Blood Pressure [Right Arm] Blood Pressure Mean 90 Blood Pressure Mean [Right Arm] Blood Pressure Position Sitting Blood Pressure Position [Right Arm] Pulse Oximetry 98 95 96 Oxygen Delivery Method Room Air Room Air Room Air Sepsis Recent Fever Within 48 Hours No Sepsis New/Unexplained Change in Mental Status N/A Sepsis Action Taken by Nursing No Action Required 05/13/24 05:54 05/13/24 06:18 05/13/24 08:00 Temperature Temperature Source Pulse Rate 97 H Pulse Rate [Apical] 67 Pulse Rhythm Respiratory Rate 18 Respiratory Effort / Characteristics Non-Labored Spontaneous Non-Labored Spontaneous Respiratory Depth Normal Normal Respiratory Pattern Regular Blood Pressure Blood Pressure [Right Arm] 117/72 Blood Pressure Mean Blood Pressure Mean [Right Arm] 87 Blood Pressure Position Blood Pressure Position [Right Arm] Semi-fowlers Pulse Oximetry 95 Oxygen Delivery Method Room Air Room Air Sepsis Recent Fever Within 48 Hours Sepsis New/Unexplained Change in Mental Status Sepsis Action Taken by Nursing General: Well developed well nourished middle-age male who appears in no acute distress, breathing comfortably on room air. Normal speech HEENT: Normal cephalic atraumatic. Pupils are equal round and reactive to light. Extraocular movements are intact. Oropharynx is pink with moist mucous membranes. No swelling of the mouth lips or tongue. Neck: Supple with a midline trachea. No meningeal signs or stiffness, no JVD or bruits. No Stridor. Chest: Clear to auscultation bilaterally with diminished breath sounds in the bases bilaterally. No wheezes or rhonchi. No increased work of breathing. Heart: Regular rate and rhythm without murmurs or gallops. Abdomen: Soft nontender, nondistended without rebound guarding or rigidity. Extremities: No cyanosis clubbing or edema. No calf tenderness or assymetry Spine/Back. Non tender to palpation. No CVA tenderness Skin: Good turgor without rashes. Neurologic exam: Cranial nerves two through 12 are intact. Motor and sensation are intact and symmetrical throughout. Course Administered Medications Acyclovir (Acyclovir 400 Mg Tab) 400 mg PO DAILY COUNT INCLUDES THE [facility] Stop: 06/12/24 11:24 Last Admin: 05/13/24 12:25 Dose: 400 mg Documented By: GO Allopurinol (Allopurinol 100 Mg Tab) 100 mg PO DAILY COUNT INCLUDES THE [facility] Stop: 06/12/24 11:24 Last Admin: 05/13/24 12:25 Dose: Not Given Documented By: GO Dapsone (Dapsone 25 Mg Tab) 25 mg PO DAILY COUNT INCLUDES THE [facility] Stop: 06/12/24 11:24 Last Admin: 05/13/24 12:26 Dose: Not Given Documented By: GO Duloxetine HCl (Duloxetine Hcl 20 Mg Cap) 40 mg PO DAILY COUNT INCLUDES THE [facility] Stop: 06/12/24 11:24 Last Admin: 05/13/24 12:26 Dose: 40 mg Documented By: GO Finasteride (Finasteride 5 Mg Tab) 5 mg PO DAILY COUNT INCLUDES THE [facility] Stop: 06/12/24 11:24 Last Admin: 05/13/24 12:27 Dose: 5 mg Documented By: GO Folic Acid (Folic Acid 400 Mcg Tab) 400 mcg PO DAILY JOSE Stop: 06/12/24 11:24 Last Admin: 05/13/24 12:27 Dose: 400 mcg Documented By: GO Insulin Aspart (Insulin Aspart Per Unit Charge) 0 units SC ACHS JOSE Stop: 06/12/24 11:29 Last Admin: 05/13/24 12:18 Dose: Not Given Documented By: GO Magnesium Chloride (Magnesium Chloride W/Calcium 64mg Delayed Rel Tab) 64 mg PO BID JOSE Stop: 06/12/24 11:24 Last Admin: 05/13/24 12:28 Dose: 64 mg Documented By: GO Pantoprazole Sodium (Pantoprazole 40 Mg Tab) 40 mg PO DAILY JOSE Stop: 06/12/24 11:24 Last Admin: 05/13/24 12:28 Dose: 40 mg Documented By: GO Vitamin D (Cholecalciferol 125 Mcg (5,000 Units) Tab) 125 mcg PO DAILY JOSE Stop: 06/12/24 11:24 Last Admin: 05/13/24 12:25 Dose: 125 mcg Documented By: GO Vitamin D (Cholecalciferol 25 Mcg (1000 Units) Tab) 25 mcg PO DAILY JOSE Stop: 06/12/24 11:24 Last Admin: 05/13/24 12:26 Dose: 25 mcg Documented By: GO Discontinued Medications Furosemide (Furosemide Inj 20 Mg/2 Ml Vial) 20 mg IV ONE ONE Stop: 05/13/24 08:16 Last Admin: 05/13/24 08:24 Dose: 20 mg Documented By: MARIANA Medical Decision Making Differential Diagnosis CHF, pleural effusion, infection, COVID, acute coronary syndrome, arrhythmia, pneumothorax, anemia, complication related to chronic medical problems, PE Medical Records Attestation: I reviewed the patient's medical records. Home Medications Current Medication List: was personally reviewed by me Laboratory Data Attestation: I reviewed the patient's lab results. 05/13/24 06:50 05/13/24 06:50 Lab Results 05/13/24 05/13/24 05/13/24 Range/Units 06:14 06:16 06:50 WBC 5.49 (4.8-10.8) K/ul RBC 3.03 L (4.70-6.10) M/uL Hgb 11.0 L (14.0-18.0) g/dl Hct 33.1 L (42.0-52.0) % MCV 109.2 H (80.0-100.0) fL MCH 36.3 H (25.0-34.0) pg MCHC 33.2 (32.0-36.0) g/dL RDW Std Deviation 67.0 H (36.4-46.3) fL RDW Coeff of Tobi 16.7 H (11.5-14.5) % Plt Count 54 L (130-400) K/uL Immature Gran % (Auto) 0.4 % Neut % (Auto) 87.5 % Lymph % (Auto) 2.7 % [place] % (Auto) 7.5 % Eos % (Auto) 1.5 % Baso % (Auto) 0.4 % Neut # (Auto) 4.81 (1.40-6.50) K/uL Lymph # (Auto) 0.15 L (1.20-3.40) K/uL [place] # (Auto) 0.41 (0.11-0.59) K/uL Eos # (Auto) 0.08 (0.00-0.50) K/uL Baso # (Auto) 0.02 (0.00-0.20) K/uL Immature Gran # (Auto) 0.02 (0.01-0.20) K/uL Absolute Nucleated RBC 0.03 (0.00-0.12) K/uL Nucleated RBC % (auto) 0.5 % Platelet Estimate Decreased L (Normal) Polychromasia 1+ Tear Drop Cells 1+ Ovalocytes 1+ PT Cancelled INR Cancelled APTT Cancelled PTT Ratio Cancelled VBG pH (7.36-7.41) VBG pCO2 (38-50) mmHg VBG pO2 mmHg VBG HCO3 mmol/L VBG O2 Saturation % VBG Base Excess mEq/L Sodium 139 (136-145) mmol/L Potassium 4.5 (3.5-5.1) mmol/L Chloride 102 (98-107) mmol/L Carbon Dioxide 31 (21-32) mmol/L Anion Gap 6 (3-11) BUN 49 H (6-23) mg/dl Creatinine 1.16 (0.6-1.4) mg/dl Est Cr Clr Drug Dosing 64.0 ml/min Est GFR ( Amer) 82.3 ml/min Est GFR (Non-Af Amer) 71.0 ml/min BUN/Creatinine Ratio 42.2 H (10-20) Glucose 99 (70-99(Fasting)) mg/dl Calcium 9.9 (8.6-10.3) mg/dl Magnesium 2.0 (1.7-2.4) mg/dl Total Bilirubin 0.5 (0.2-1.0) mg/dl AST 22 (13-39) U/L ALT 23 (7-52) U/L Alkaline Phosphatase 144 H (34-104) U/L Troponin I High Sens 60.2 H* (0-20) pg/ml B-Natriuretic Peptide 2140 H (0-100) pg/ml Total Protein 6.4 (6.0-8.3) gm/dl Albumin 3.8 (3.4-5.0) gm/dl Globulin 2.6 (2.5-4.0) gm/dl Albumin/Globulin Ratio 1.5 (0.9-2) Urine Color Yellow Urine Appearance Clear (Clear) Urine pH 6.0 (4.5-7.5) Ur Specific [place] 1.007 (1.000-1.030) Urine Protein 1+ H (Negative) Urine Glucose (UA) Negative (Negative) Urine Ketones Negative (Negative) Urine Blood Negative (Negative) Urine Nitrite Negative (Negative) Urine Bilirubin Negative (Negative) Urine Urobilinogen Negative (Negative) Ur Leukocyte Esterase Negative (Negative) Urine WBC (Auto) 0-5 (0-5) /hpf Urine RBC (Auto) 0-2 (0-2) /hpf U Hyaline Cast (Auto) 0-2 (0-2) /lpf U Epithel Cells (Auto) 0-2 (0-2) /hpf Urine Bacteria (Auto) None Seen (None Seen) Adenovirus (PCR) Not Detected (NotDetected) B. pertussis DNA (PCR) Not Detected (NotDetected) B.parapertussis DNA PCR Not Detected (NotDetected) C. pneumoniae DNA (PCR) Not Detected (NotDetected) Coronavirus OC43 (PCR) Not Detected (NotDetected) Coronavirus HKU1 (PCR) Not Detected (NotDetected) Coronavirus 229E (PCR) Not Detected (NotDetected) SARS-CoV-2 (PCR) Not Detected (NotDetected) Coronavirus NL63 (PCR) Not Detected (NotDetected) Human Metapneumovir PCR Not Detected (NotDetected) Influenza Type A (PCR) Not Detected (NotDetected) Influenza Type B (PCR) Not Detected (NotDetected) M. pneumoniae (PCR) Not Detected (NotDetected) Parainfluenza 1 (PCR) Not Detected (NotDetected) Parainfluenza 2 (PCR) Not Detected (NotDetected) Parainfluenza 3 (PCR) Not Detected (NotDetected) Parainfluenza 4 (PCR) Not Detected (NotDetected) RSV (PCR) Not Detected (NotDetected) Entero/Rhino (PCR) Not Detected (NotDetected) 05/13/24 05/13/24 Range/Units 07:28 08:31 WBC (4.8-10.8) K/ul RBC (4.70-6.10) M/uL Hgb (14.0-18.0) g/dl Hct (42.0-52.0) % MCV (80.0-100.0) fL MCH (25.0-34.0) pg MCHC (32.0-36.0) g/dL RDW Std Deviation (36.4-46.3) fL RDW Coeff of Tobi (11.5-14.5) % Plt Count (130-400) K/uL Immature Gran % (Auto) % Neut % (Auto) % Lymph % (Auto) % [place] % (Auto) % Eos % (Auto) % Baso % (Auto) % Neut # (Auto) (1.40-6.50) K/uL Lymph # (Auto) (1.20-3.40) K/uL [place] # (Auto) (0.11-0.59) K/uL Eos # (Auto) (0.00-0.50) K/uL Baso # (Auto) (0.00-0.20) K/uL Immature Gran # (Auto) (0.01-0.20) K/uL Absolute Nucleated RBC (0.00-0.12) K/uL Nucleated RBC % (auto) % Platelet Estimate (Normal) Polychromasia Tear Drop Cells Ovalocytes PT INR APTT PTT Ratio VBG pH 7.43 H (7.36-7.41) VBG pCO2 50 (38-50) mmHg VBG pO2 21 mmHg VBG HCO3 33 mmol/L VBG O2 Saturation < 60.0 % VBG Base Excess 7.6 mEq/L Sodium (136-145) mmol/L Potassium (3.5-5.1) mmol/L Chloride (98-107) mmol/L Carbon Dioxide (21-32) mmol/L Anion Gap (3-11) BUN (6-23) mg/dl Creatinine (0.6-1.4) mg/dl Est Cr Clr Drug Dosing ml/min Est GFR ( Amer) ml/min Est GFR (Non-Af Amer) ml/min BUN/Creatinine Ratio (10-20) Glucose (70-99(Fasting)) mg/dl Calcium (8.6-10.3) mg/dl Magnesium (1.7-2.4) mg/dl Total Bilirubin (0.2-1.0) mg/dl AST (13-39) U/L ALT (7-52) U/L Alkaline Phosphatase (34-104) U/L Troponin I High Sens 65.8 H* (0-20) pg/ml B-Natriuretic Peptide (0-100) pg/ml Total Protein (6.0-8.3) gm/dl Albumin (3.4-5.0) gm/dl Globulin (2.5-4.0) gm/dl Albumin/Globulin Ratio (0.9-2) Urine Color Urine Appearance (Clear) Urine pH (4.5-7.5) Ur Specific [place] (1.000-1.030) Urine Protein (Negative) Urine Glucose (UA) (Negative) Urine Ketones (Negative) Urine Blood (Negative) Urine Nitrite (Negative) Urine Bilirubin (Negative) Urine Urobilinogen (Negative) Ur Leukocyte Esterase (Negative) Urine WBC (Auto) (0-5) /hpf Urine RBC (Auto) (0-2) /hpf U Hyaline Cast (Auto) (0-2) /lpf U Epithel Cells (Auto) (0-2) /hpf Urine Bacteria (Auto) (None Seen) Adenovirus (PCR) (NotDetected) B. pertussis DNA (PCR) (NotDetected) B.parapertussis DNA PCR (NotDetected) C. pneumoniae DNA (PCR) (NotDetected) Coronavirus OC43 (PCR) (NotDetected) Coronavirus HKU1 (PCR) (NotDetected) Coronavirus 229E (PCR) (NotDetected) SARS-CoV-2 (PCR) (NotDetected) Coronavirus NL63 (PCR) (NotDetected) Human Metapneumovir PCR (NotDetected) Influenza Type A (PCR) (NotDetected) Influenza Type B (PCR) (NotDetected) M. pneumoniae (PCR) (NotDetected) Parainfluenza 1 (PCR) (NotDetected) Parainfluenza 2 (PCR) (NotDetected) Parainfluenza 3 (PCR) (NotDetected) Parainfluenza 4 (PCR) (NotDetected) RSV (PCR) (NotDetected) Entero/Rhino (PCR) (NotDetected) Imaging Data Attestation: I personally reviewed and interpreted this imaging study as follows: My Impression: Chest x-rayhe does have bilateral pleural effusions right greater than left. The right is moderate in size Radiologist's Impression: Chest X-Ray 05/13/24 05:54 XR chest 1V portable CLINICAL HISTORY: Dyspnea. COMPARISON STUDY: Chest radiograph and chest CT December 06, 2023. FINDINGS: Right internal jugular [id number] is unchanged in position. Moderate right and small left pleural effusions with associated bibasilar opacities persist. There is cardiomegaly with mild interstitial thickening. No pneumothorax. IMPRESSION: 1. Cardiomegaly with mild interstitial pulmonary edema. 2. No significant change in moderate right and small left pleural effusions with bibasilar opacities/ ACT 112: Negative or not required by law. Electronically signed by: Jamal River M.D. 05/13/2024 7:00 AM ECG Data Attestation: I personally reviewed and interpreted this ECG as follows: Indication: + SOB/dyspnea Rate (beats per minute): 99 Rhythm: + normal sinus ECG Intervals/blocks: + Normal QRS and + Normal QT ECG [place]: + Normal ECG Findings: + Other (low voltage QRS); no PACs or no PVCs Comparison ECG Date: from (12/06/2023) MDM Narrative This patient is a 54-year-old male has complex medical history, comes in after having shortness of breath. He does have history of pleural effusions as well as A-fib and multiple myeloma. He is chronically debilitated. He does have a port which we accessed. Chest x-ray does show pleural effusions which are mild to moderate in size. EKG shows no significant change compared to old he does have somewhat low voltage but he had low voltage on the old one as well. He does not use inhalers or have COPD. He does have home oxygen. His BNP is elevated as well as his troponin. Troponin is chronically elevated and is no different the BNP is about double what it typically runs. He has nothing to suggest an infectious etiology at this point. His BioFire was negative. He was given Lasix 20 mg IV I do think this is more of a CHF exacerbation at this point. I do think he needs to be admitted/observed. and the patient were in agreement with the plan, I have discussed the case at length with the on-call [facility] hospitalist who saw him in the ER for these measures. Continuous cardiac monitoring: Orders placed in EMR for continuous cardiac monitoring: Upon my evaluation was noted to be normal sinus rhythm at rate of 100. Impression & Plan CHF (congestive heart failure), SOB (shortness of breath), Pleural effusion, bilateral, Multiple myeloma Discharge Plan Visit Data Chief Complaint: Respiratory Problems Stated Complaint: HARD TO BREATHE,HX OF FLUID IN LUNGS ED Provider: José Luis Moser Discharge Problem: CHF (congestive heart failure), SOB (shortness of breath), Pleural effusion, bilateral, Multiple myeloma Patient Disposition: Admitted As Inpatient Discharge Instructions Interventions: ED Discharge Assessment Last Done: 05/13/24 11:25 Discharge Problem: CHF (congestive heart failure) Qualifiers: Heart failure type: unspecified Heart failure chronicity: unspecified Qualified Code(s): I50.9 - Heart failure, unspecified Multiple myeloma Qualifiers: Multiple myeloma remission status: unspecified Qualified Code(s): C90.00 - Multiple myeloma not having achieved remission
--- NOTE | 2024-05-13 07:01 | XRay Report ---
XR chest 1V portable CLINICAL HISTORY: Dyspnea. COMPARISON STUDY: Chest radiograph and chest CT December 06, 2023. FINDINGS: Right internal jugular [id number] is unchanged in position. Moderate right and small lef t pleural effusions with associated bibasilar opacities persist. There is cardiomegaly with mild inte rstitial thickening. No pneumothorax. IMPRESSION: 1. Cardiomegaly with mild interstitial pulmonary edema. 2. No significant change in moderate right and small left pleural effusions with bibasilar opacities/ ACT 112: Negative or not required by law. Electronically signed by: Jamal River M.D. 05/13/2024 7:00 AM
[2024-05-13 07:11] LABS: Adenovirus PCR Not Detected (NotDetected); Bordetella parapertussis PCR Not Detected (NotDetected); Bordetella pertussis PCR Not Detected (NotDetected); Chlamydia pneumoniae PCR Not Detected (NotDetected); Coronavirus 229E PCR Not Detected (NotDetected); Coronavirus CoV-2 (COVID19)PCR Not Detected (NotDetected); Coronavirus HKU1 PCR Not Detected (NotDetected); Coronavirus NL63 PCR Not Detected (NotDetected); Coronavirus OC43PCR Not Detected (NotDetected); Human Metapneumovirus PCR Not Detected (NotDetected); Influenza A PCR Not Detected (NotDetected); Influenza B PCR Not Detected (NotDetected); Mycoplasma pneumoniae PCR Not Detected (NotDetected); Parainfluenza Virus 1 PCR Not Detected (NotDetected); Parainfluenza Virus 2 PCR Not Detected (NotDetected); Parainfluenza Virus 3 PCR Not Detected (NotDetected); Parainfluenza Virus 4 PCR Not Detected (NotDetected); Respiratory Syncytial VirusPCR Not Detected (NotDetected); Rhinovirus/Enterovirus PCR Not Detected (NotDetected)
[2024-05-13 07:23] LABS: Albumin Globulin Ratio 1.5 (0.9-2); Albumin Level 3.8 gm/dl (3.4-5.0); BUN Creatinine Ratio 42.2 (10-20); Bilirubin,Total 0.5 mg/dl (0.2-1.0); Calcium 9.9 mg/dl (8.6-10.3); Est GFR (African American) 82.3 ml/min; Globulin 2.6 gm/dl (2.5-4.0); Potassium 4.5 mmol/L (3.5-5.1); Total Protein 6.4 gm/dl (6.0-8.3)
[2024-05-13 07:29] LABS: Basophils # (auto) 0.02 K/uL (0.00-0.20); Basophils % (auto) 0.4 %; Eosinophils # (auto) 0.08 K/uL (0.00-0.50); Eosinophils % (auto) 1.5 %; Hematocrit (blood only) 33.1 % (42.0-52.0); Immature Granulocytes # (auto) 0.02 K/uL (0.01-0.20); Immature Granulocytes % (auto) 0.4 %; Lymphocytes # (auto) 0.15 K/uL (1.20-3.40); Lymphocytes % (auto) 2.7 %; Mean Corpuscular Hemoglobin 36.3 pg (25.0-34.0); Mean Corpuscular Hgb Conc 33.2 g/dL (32.0-36.0); Mean Corpuscular Volume 109.2 fL (80.0-100.0); Monocytes # (auto) 0.41 K/uL (0.11-0.59); Monocytes % (auto) 7.5 %; Neutrophils # (auto) 4.81 K/uL (1.40-6.50); Neutrophils % (auto) 87.5 %; Nucleated RBC # (auto) 0.03 K/uL (0.00-0.12); Nucleated RBC % (auto) 0.5 %; Ovalocytes 1+; Platelet Count 54 K/uL (130-400); Platelet Estimate Decreased (Normal); Polychromasia 1+; RDW Coefficient of Variation 16.7 % (11.5-14.5); Red Blood Count 3.03 M/uL (4.70-6.10); Tear Drop Cells 1+; White Blood Count 5.49 K/ul (4.8-10.8)
--- NOTE | 2024-05-13 07:34 | Electrocardiogram Report ---
Test Reason : Blood Pressure : */* mmHG Vent. Rate : 99 BPM Atrial Rate : 99 BPM P-R Int : 168 ms QRS Dur : 78 ms QT Int : 348 ms P-R-T Axes : 47 83 -25 degrees QTcB Int : 446 ms Normal sinus rhythm Low voltage QRS Poor R wave progression, consider anterior MS vs. lead placement vs. LVH Abnormal ECG When compared with ECG of 06-Dec-2023 18:50, QRS duration has decreased Confirmed by Santiago Johnson ([id number]) on 05/13/2024 7:34:17 AM Referred By: Confirmed By: Santiago Johnson
[2024-05-13 07:35] LABS: Troponin I High Sensitivity 60.2 pg/ml (0-20)
[2024-05-13 07:38] LABS: Base Excess VBG 7.6 mEq/L; HCO3 VBG 33 mmol/L; Oxygen Saturation VBG < 60.0 %; PCO2 VBG 50 mmHg (38-50); PO2 VBG 21 mmHg; pH VBG 7.43 (7.36-7.41)
[2024-05-13] MEDS: FUROSEMIDE INJ 20 MG/2 ML VIAL IV ONE (08:24)
--- NOTE | 2024-05-13 09:20 | History & Physical Report ---
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 Has acute on chronic diastolic CHF-elevated BNP and chest x-ray suggestive of CHF Received 20 of Lasix intravenously in the emergency room and continue 20 mg IV twice daily Will maintain intake output Monitor creatinine and electrolytes (2) Elevated troponin I level: Plan: Troponin is mildly elevated likely secondary to CHF and stress-induced Will do serial troponins to rule out the possibilities of ACS (3) Multiple myeloma: Plan: History of multiple myeloma on suppressive antivirals Has been following up regularly with his audio visual arts director/oncologist (4) Pleural effusion, bilateral: Plan: Chest x-ray showed small bilateral effusion not enough to be drained clinically Is expected to improve with intravenous Lasix (5) Paroxysmal atrial fibrillation: Plan: Rate is controlled and will continue the current medications Has been on Eliquis and will continue (6) 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: Plan: As above (7) CKD (chronic kidney disease) stage 3, GFR 30-59 ml/min: Plan: Will monitor PRP (8) Diabetes type 2, uncontrolled: Plan: Will check hemoglobin A1c Hold metformin Will put him on sliding scale DVT prophylaxis Has been on Eliquis CODE STATUS Full History of Present Illness Chief Complaint: Not feeling well for a few days and orthopnea last Primary Care Provider: Jaime Garcia MD Is a 54-year-old male with significant past medical history including multiple myeloma without remission, cardiac amyloidosis, PAF, chronic heart failure with preserved EF, hypogammaglobulinemia, type 2 diabetes, history of DEBBY, hyperlipidemia, BPH and clinically solitary kidney apparently has had chemotherapy in January of this year for his multiple myeloma and since then he has not been doing well. He was seen by his oncologist/audio visual arts director a few weeks back and also was seen by PCP last week or so today denies any significant symptoms as of today. He has been complaining of more shortness of breath with exertion and also has had orthopnea early this morning and came to the emergency room for further evaluation. He mentioned to have gained a few pounds for the last few days but does not have any swelling of the legs. He did not have any change in his medications except recently has been given more physical for his low appetite. Denies any fever or chills and does not have any abdominal distention or pain or nausea and vomiting. Noted to have CHF x-ray without any significant pleural effusion with increasing BNP and mildly elevated troponin. He was admitted to medical telemetry unit for continued care Allergies Allergy/AdvReac Type Severity Reaction Status Date / Time [id number] Reductase AdvReac Intermediate MUSCLE Verified 12/06/23 19:37 Inhibitor PAIN WITH ATORVASTATIN & ZETIA NSAIDS (Non-Steroidal AdvReac Unknown Advised by Verified 12/06/23 19:37 Anti-Inflamma nephrology to avoid d/t CKD Home Medications Medication Instructions Recorded Confirmed Type acyclovir 400 mg tablet 400 mg PO DAILY 09/15/23 05/13/24 History cholecalciferol (vitamin D3) 50 6,000 unit PO DAILY 09/15/23 05/13/24 History mcg (2,000 unit) capsule (Vitamin D3) duloxetine 20 mg capsule,delayed 40 mg PO DAILY 09/15/23 05/13/24 History release evolocumab 140 mg/mL subcutaneous 140 mg subcut .Q2WKS 09/15/23 05/13/24 History pen injector (Sherry Doran) finasteride 5 mg tablet 5 mg PO DAILY 09/15/23 05/13/24 History folic acid 400 mcg tablet 400 mcg PO DAILY 09/15/23 05/13/24 History icosapent ethyl 1 gram capsule 2 g PO BIDM 09/15/23 05/13/24 History levothyroxine 50 mcg tablet 50 mcg PO DAILYBB 09/15/23 05/13/24 History magnesium chloride 64 mg 64 mg PO BID 09/15/23 05/13/24 History (magnesium chloride) tablet,delayed release (Mag 64) metformin 500 mg tablet,extended 1,000 mg PO DAILY 09/15/23 05/13/24 History release 24 hr ondansetron HCl 8 mg tablet 8 mg PO TID PRN Nausea And Vomiting 09/15/23 05/13/24 History oxycodone 5 mg tablet 5 mg PO Q4H PRN Pain 09/15/23 05/13/24 History pantoprazole 20 mg tablet,delayed 20 mg PO DAILY 09/15/23 05/13/24 History release tenofovir alafenamide 25 mg tablet 25 mg PO DAILY 09/15/23 05/13/24 History (Vemlidy) albuterol sulfate 90 mcg/actuation 2 puff inhalation Q6H PRN 12/06/23 05/13/24 History aerosol inhaler Shortness Of Breath/COUGH allopurinol 100 mg tablet 100 mg PO DAILY 12/06/23 05/13/24 History epinephrine 0.3 mg/0.3 mL 0.3 mg IM DIRECTED PRN SEVERE 12/06/23 05/13/24 History injection, auto-injector (EpiPen) ALLERGIC REACTION polyethylene glycol 3350 17 gram 17 g PO DAILY PRN Constipation 12/06/23 05/13/24 History oral powder packet (Miralax) prochlorperazine maleate 10 mg 10 mg PO Q6H PRN Nausea 12/06/23 05/13/24 History tablet (Compazine) torsemide 10 mg tablet 10 mg PO QAM PRN EDEMA/FLUID 12/06/23 05/13/24 History RETENTION apixaban 5 mg tablet (Eliquis) 5 mg PO BID 05/13/24 05/13/24 History fludrocortisone 0.1 mg tablet 0.1 mg PO DAILY 05/13/24 05/13/24 History hydrocortisone 5 mg tablet 15 mg PO DAILY 05/13/24 05/13/24 History mirtazapine 15 mg tablet 15 mg PO PM 05/13/24 05/13/24 History nystatin 100,000 unit/mL oral 100,000 unit PO TID 05/13/24 05/13/24 History suspension Past Med/Surg History Problem List (Updated 05/13/24 @ 14:28 by José Luis Moser MD) CHF (congestive heart failure) (Acute) Multiple myeloma (Acute) Acute on chronic combined systolic and diastolic CHF, NYHA class 2 Elevated troponin I level (Acute) Weakness (Acute) Pleural effusion, bilateral (Acute) SOB (shortness of breath) (Acute) Diarrhea (Acute) Salmonella enteritis (Acute) Ambulatory dysfunction DEBBY (obstructive sleep apnea) ARSENIO (acute kidney injury) (Acute) Orthostatic hypotension Autonomic dysfunction Hypotension (Acute) Multiple myeloma without remission Hypocalcemia (Acute) Hypomagnesemia (Acute) Dysphagia Pancreatic cyst Encounter for pre-operative examination Multiple myeloma (Chronic) prison (current) use of anticoagulants Hypertension GERD (gastroesophageal reflux disease) Exertional dyspnea Atrial fibrillation Paroxysmal atrial fibrillation Pneumonia (Acute) Multiple myeloma (Acute) Dyspnea (Acute) Hemoptysis Depression DVT prophylaxis COVID-19 (Acute) Elevated troponin (Acute) SOB (shortness of breath) (Acute) Pneumonia due to COVID-19 virus Acute renal failure superimposed on stage 3a chronic kidney disease Fever (Acute) Parainfluenza infection (Acute) Cough (Acute) Syncope and collapse Syncope (Acute) Current use of correction anticoagulation (Acute) Lab test negative for COVID-19 virus (Acute) Diabetes type 2, uncontrolled CKD (chronic kidney disease) stage 3, GFR 30-59 ml/min Severe sepsis 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 Amyloidosis (Acute) Dx 2018 Follows with [facility] Chronic diastolic CHF (congestive heart failure) (Acute) Medical History Nausea & vomiting Diarrhea Acute dehydration Elevated lactic acid level Hypokalemia Salmonella enteritis Cardiac amyloidosis CAD (coronary artery disease) Nonobstructive GERD (gastroesophageal reflux disease) Atrial fibrillation Follows with [facility]/Tim SAUCEDO Low back problem BPH (benign prostatic hyperplasia) CKD (chronic kidney disease) Follows with [facility]/Dr. Cook, last seen 04/2023- advised to avoid NSAIDs completely Hypothyroidism DM type 2 (diabetes mellitus, type 2) HLD (hyperlipidemia) Sleep apnea CPAP + 2 LPM O2 Dysphagia History of depression Multiple myeloma Dx 2013, currently on Chemo 1xwk on Fridays Follows with [facility]/Dr. Amaral [facility] Surgical History History of surgery vasectomy reversal History of surgery Urolift History of vascular access device Right chest port (type unknown) History of cataract surgery History of cardiac cath Right heart cath (2018) History of colonoscopy History of esophagogastroduodenoscopy (EGD) H/O vasectomy Family History Father No problems noted. Mother No problems noted. Other Adopted Social History Smoking Status: Never smoker Tobacco Type: Cigarettes Second Hand Exposure: No; Do You Dip or Chew Tobacco: No; Hx Alcohol Use: No Hx Substance Use: No Preferred Language: Trinidadian Communication Ability: Effective Graphic Art Technician Required: No Beliefs That Will Affect Care: None marital status: marital status details: twice - 3 children in total between the 2 marriages Current Living Situation: Spouse Current Living Situation Comment: and daughter current occupational status: disabled current occupation: previously worked at [employer] Other Information That Helps Us Care for You: No Feels Safe at Home: Yes Assistive Devices: Cane Review of Systems Review of Systems: All systems reviewed and are unremarkable except as noted below Physical Exam Physical Exam: Sitting at the edge of the bed with some respiratory distress but no pain Constitutional: + ill appearing and average body habitus Eyes: PERRL, conjunctivae normal, anicteric sclerae ENMT: external ear and nose normal, oropharynx normal Neck: trachea midline, no thyromegaly Respiratory: + respiratory distress Auscultation: + diminished lung sounds and + crackles (Minimal bibasilar crackles) Cardiovascular: Rate/Rhythm: regular rate and regular rhythm; not tachycardic Heart Sounds: normal S1 and normal S2; no murmur Extremities: no edema Gastrointestinal (Abdomen): Inspection/Auscultation: + abdomen distended (Mildly distended) and normal bowel sounds Percussion/Palpation: abdomen soft; abdomen nontender Musculoskeletal: No acute arthritis involving any of the joints please Neurologic: normal touch/pain/proprioception and moves all extremities; no focal motor deficits Psychiatric: A+Ox3, euthymic affect Lymphatic: no cervical or axillary lymphadenopathy Results & Data Results & Data Vital Signs (Past 12 Hours) Vital Signs Temp Pulse Pulse Resp BP BP Pulse Ox 05/13/24 08:00 67 18 117/72 95 05/13/24 06:18 97 H 05/13/24 05:54 05/13/24 05:54 96 05/13/24 05:54 97 H 20 95 05/13/24 05:51 36.6 C 98 H 18 110/80 98 O2 Del Method 05/13/24 08:00 Room Air 05/13/24 06:18 05/13/24 05:54 Room Air 05/13/24 05:54 Room Air 05/13/24 05:54 Room Air 05/13/24 05:51 Room Air Laboratory Results Short CBC 05/13/24 Range/Units 06:50 WBC 5.49 (4.8-10.8) K/ul Hgb 11.0 L (14.0-18.0) g/dl Hct 33.1 L (42.0-52.0) % Plt Count 54 L (130-400) K/uL BMP 05/13/24 06:50 Sodium 139 Potassium 4.5 Chloride 102 Carbon Dioxide 31 BUN 49 H Creatinine 1.16 Glucose 99 Calcium 9.9 Liver Function 05/13/24 Range/Units 06:50 Total Bilirubin 0.5 (0.2-1.0) mg/dl AST 22 (13-39) U/L ALT 23 (7-52) U/L Alkaline Phosphatase 144 H (34-104) U/L Albumin 3.8 (3.4-5.0) gm/dl Urine 05/13/24 Range/Units 06:14 Urine Color Yellow Urine Appearance Clear (Clear) Urine pH 6.0 (4.5-7.5) Ur Specific Anita 1.007 (1.000-1.030) Urine Protein 1+ H (Negative) Urine Glucose (UA) Negative (Negative) Medications Administered Current Inpatient Medications Furosemide (Furosemide Inj 20 Mg/2 Ml Vial) 20 mg IV BID JOSE Stop: 06/12/24 20:59 Code Status & VTE Plan VTE Prophylaxis Plan VTE Prophylaxis will be ordered: Yes
[2024-05-13] MEDS ORDERED: GLUCOSE 10 TAB/TUBE PO PRN ×2 (09:28→19:16)
[2024-05-13] MEDS ORDERED: GLUCOSE 40% GEL 15 GM TUBE PO PRN ×2 (09:28→19:16)
[2024-05-13] MEDS ORDERED: GLUCAGON FOR INJ 1 MG VIAL SQ PRN ×2 (09:28→19:16)
[2024-05-13] MEDS ORDERED: DEXTROSE 50% 50 ML SYRINGE IV PRN ×2 (09:28→19:16)
[2024-05-13] MEDS ORDERED: CARBOHYDRATES FOR HYPOGLYCEMIA PO PRN ×2 (09:28→19:16)
[2024-05-13 10:22] LABS: INR 1.1 (0.9-1.1); Partial Thromboplastin Ratio 1.3; Partial Thromboplastin Time 34 Seconds (21-31); Prothrombin Time 11.9 Seconds (9.0-12.0)
[2024-05-13] MEDS ORDERED: POLYETHYLENE (MIRALAX) 17 GM PACK PO PRN (11:25)
[2024-05-13] MEDS ORDERED: ALBUTEROL HFA 8 GM INHALER INH PRN (11:25)
[2024-05-13] MEDS: INSULIN ASPART PER UNIT CHARGE SC SCH (12:18)
[2024-05-13] MEDS: ACYCLOVIR 400 MG TAB PO SCH (12:25)
[2024-05-13] MEDS: allopurinoL 100 MG TAB PO SCH (12:25)
[2024-05-13] MEDS: CHOLECALCIFEROL 125 MCG (5,000 UNITS) TAB PO SCH (12:25)
[2024-05-13] MEDS: CHOLECALCIFEROL 25 MCG (1000 UNITS) TAB PO SCH (12:26)
[2024-05-13] MEDS: DULoxetine HCL 20 MG CAP PO SCH (12:26)
[2024-05-13] MEDS: DAPSONE 25 MG TAB PO SCH (12:26)
[2024-05-13] MEDS: FOLIC ACID 400 MCG TAB PO SCH (12:27)
[2024-05-13] MEDS: FINASTERIDE 5 MG TAB PO SCH (12:27)
[2024-05-13] MEDS: PANTOprazole 40 MG TAB PO SCH (12:28)
[2024-05-13] MEDS: MAGNESIUM CHLORIDE W/CALCIUM 64MG DELAYED REL TAB PO SCH (12:28)
[2024-05-13] MEDS: FUROSEMIDE INJ 20 MG/2 ML VIAL IV SCH (17:41)
[2024-05-13] MEDS ORDERED: INSULIN ASPART PER UNIT CHARGE SC SCH (21:00)
[2024-05-14] MEDS: LEVOTHYROXINE SODIUM 50 MCG TABLET PO SCH (05:43)
[2024-05-14 06:11] LABS: BUN Creatinine Ratio 39.8 (10-20); Calcium 9.7 mg/dl (8.6-10.3); Creatinine Clr Calc Pharmacy 55.1 ml/min; Est GFR (African American) 73.1 ml/min; Magnesium 2.1 mg/dl (1.7-2.4); Potassium 4.2 mmol/L (3.5-5.1)
[2024-05-14 06:35] LABS: Hematocrit (blood only) 34.4 % (42.0-52.0); Hemoglobin 11.5 g/dl (14.0-18.0); Mean Corpuscular Hemoglobin 36.1 pg (25.0-34.0); Mean Corpuscular Hgb Conc 33.4 g/dL (32.0-36.0); Mean Corpuscular Volume 107.8 fL (80.0-100.0); Mean Platelet Volume 13.1 fL (9.4-12.4); Platelet Count 57 K/uL (130-400); RDW Coefficient of Variation 16.2 % (11.5-14.5); RDW Standard Deviation 65.2 fL (36.4-46.3); Red Blood Count 3.19 M/uL (4.70-6.10); White Blood Count 5.37 K/ul (4.8-10.8)
[2024-05-14 07:10] LABS: Basophils # (auto) 0.02 K/uL (0.00-0.20); Basophils % (auto) 0.4 %; Eosinophils # (auto) 0.06 K/uL (0.00-0.50); Eosinophils % (auto) 1.1 %; Immature Granulocytes # (auto) 0.02 K/uL (0.01-0.20); Immature Granulocytes % (auto) 0.4 %; Lymphocytes # (auto) 0.16 K/uL (1.20-3.40); Monocytes # (auto) 0.59 K/uL (0.11-0.59); Neutrophils # (auto) 4.52 K/uL (1.40-6.50); Neutrophils % (auto) 84.1 %
[2024-05-14 07:20] LABS: Estimated Average Glucose 146 mg/dl; Hemoglobin A1C 6.7 % (4.5-5.6)
[2024-05-14] MEDS: APIXABAN 5 MG TABLET PO SCH (08:54)
[2024-05-14] MEDS: FLUDROCORTISONE ACETATE 0.1 MG TAB PO SCH (08:54)
[2024-05-14] MEDS: HYDROCORTISONE 10 MG TAB PO SCH (08:54)
[2024-05-14] MEDS: METOPROLOL TARTRATE 25 MG TAB PO SCH (08:54)
--- NOTE | 2024-05-14 14:04 | Hospitalist Progress Note ---
Date of Service May 14, 2024 Assessment & Plan (1) Acute on chronic combined systolic and diastolic CHF, NYHA class 2: Plan: 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 Has acute on chronic diastolic CHF-elevated BNP and chest x-ray suggestive of CHF Received 20 of Lasix intravenously in the emergency room and continue 20 mg IV twice daily Will maintain intake output Has been having enough diuresis and feeling better clinically Electrolytes remain unremarkable Will continue current dose of Lasix today and likely discharge tomorrow Will get PT and OT evaluation Blood pressure has been noted to be low Advised to drink more fluid Received 1 dose of beta-teto this morning Will hold any more beta-teto (2) Elevated troponin I level: Plan: Troponin is mildly elevated likely secondary to CHF and stress-induced Will do serial troponins to rule out the possibilities of ACS Serial troponins remained unremarkable minimally elevated due to demand ischemia but no ACS (3) Multiple myeloma: Plan: History of multiple myeloma on suppressive antivirals Has been following up regularly with his rigger/oncologist Platelet count has been low at upper 50s Will monitor (4) Pleural effusion, bilateral: Plan: Chest x-ray showed small bilateral effusion not enough to be drained clinically Is expected to improve with intravenous Lasix (5) Paroxysmal atrial fibrillation: Plan: Rate is controlled and will continue the current medications Has been on Eliquis and will continue Eliquis has been continued (6) 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: Plan: As above (7) CKD (chronic kidney disease) stage 3, GFR 30-59 ml/min: Plan: Will monitor PRP (8) Diabetes type 2, uncontrolled: Plan: Will check hemoglobin A1c Hold metformin Will put him on sliding scale DVT prophylaxis Has been on Eliquis CODE STATUS Full Admission and Anticipated Discharge Date Admission Date: May 13, 2024 Subjective 05/14/2024 The patient was seen and examined in medical telemetry unit He has been feeling a lot better and wanted to go home His blood pressure remains low and also platelet was noted to be low He was advised to stay in the hospital tonight likely discharge tomorrow Will get PT and OT evaluation prior to discharge Review of Systems Review of Systems: All systems reviewed and are unremarkable except as noted below Physical Exam Physical Exam: lying in bed without any acute distress Constitutional: + ill appearing and average body habitus Eyes: PERRL, conjunctivae normal, anicteric sclerae ENMT: external ear and nose normal, oropharynx normal Neck: trachea midline, no thyromegaly Respiratory: + respiratory distress Auscultation: + diminished lung sounds and + crackles (Minimal bibasilar crackles) Cardiovascular: Rate/Rhythm: regular rate and regular rhythm; not tachycardic Heart Sounds: normal S1 and normal S2; no murmur Extremities: no edema Gastrointestinal (Abdomen): Inspection/Auscultation: + abdomen distended (Mildly distended) and normal bowel sounds Percussion/Palpation: abdomen soft; abdomen nontender Musculoskeletal: No acute arthritis involving any of the joints please Neurologic: normal touch/pain/proprioception and moves all extremities; no focal motor deficits Psychiatric: A+Ox3, euthymic affect Lymphatic: no cervical or axillary lymphadenopathy Results & Data Results & Data Vital Signs (Past 12 Hours) Vital Signs Temp Pulse Pulse Resp BP Pulse Ox O2 Del Method 05/14/24 11:18 36.7 C 73 15 83/55 L 91 Room Air 05/14/24 08:44 93 H 05/14/24 08:05 36.4 C L 91 H 16 138/103 H 98 Room Air 05/14/24 07:26 Room Air 05/14/24 04:23 36.4 C L 91 H 18 133/101 H 99 Room Air Laboratory Results Short CBC 05/14/24 Range/Units 05:35 WBC 5.37 (4.8-10.8) K/ul Hgb 11.5 L (14.0-18.0) g/dl Hct 34.4 L (42.0-52.0) % Plt Count 57 L (130-400) K/uL BMP 05/14/24 05:35 Sodium 137 Potassium 4.2 Chloride 99 Carbon Dioxide 32 BUN 51 H Creatinine 1.28 Glucose 123 H Calcium 9.7 Medications Administered Current Inpatient Medications Acyclovir (Acyclovir 400 Mg Tab) 400 mg PO DAILY REPLACED BY [facility] Stop: 06/12/24 11:24 Last Admin: 05/14/24 12:05 Dose: 400 mg Albuterol (Albuterol Hfa 8 Gm Inhaler) 2 puffs INH Q6H PRN PRN Reason: Shortness Of Breath/COUGH Stop: 06/12/24 11:24 Allopurinol (Allopurinol 100 Mg Tab) 100 mg PO DAILY JOSE Stop: 06/12/24 11:24 Last Admin: 05/14/24 10:17 Dose: 100 mg Apixaban (Apixaban 5 Mg Tablet) 5 mg PO BID JOSE Stop: 06/13/24 08:59 Last Admin: 05/14/24 08:54 Dose: 5 mg Dapsone (Dapsone 25 Mg Tab) 25 mg PO DAILY JOSE Stop: 06/12/24 11:24 Last Admin: 05/14/24 12:05 Dose: 25 mg Dextrose (Dextrose 50% 50 Ml Syringe) 25 - 50 ml IV UD PRN; Protocol PRN Reason: Hypoglycemia Protocol Stop: 06/12/24 09:27 Duloxetine HCl (Duloxetine Hcl 20 Mg Cap) 40 mg PO DAILY JOSE Stop: 06/12/24 11:24 Last Admin: 05/14/24 12:05 Dose: 40 mg Finasteride (Finasteride 5 Mg Tab) 5 mg PO DAILY JOSE Stop: 06/12/24 11:24 Last Admin: 05/14/24 12:05 Dose: 5 mg Fludrocortisone Acetate (Fludrocortisone Acetate 0.1 Mg Tab) 0.1 mg PO DAILY JOSE Stop: 06/13/24 08:59 Last Admin: 05/14/24 08:54 Dose: 0.1 mg Folic Acid (Folic Acid 400 Mcg Tab) 400 mcg PO DAILY JOSE Stop: 06/12/24 11:24 Last Admin: 05/14/24 10:17 Dose: 400 mcg Furosemide (Furosemide Inj 20 Mg/2 Ml Vial) 20 mg IV [id number] JOSE Stop: 06/12/24 16:59 Last Admin: 05/14/24 08:54 Dose: 20 mg Glucagon (Glucagon For Inj 1 Mg Vial) 1 mg SQ UD PRN; Protocol PRN Reason: Hypoglycemia Protocol Stop: 06/12/24 09:27 Glucose (Glucose 40% Gel 15 Gm Tube) 15 - 30 gm PO UD PRN; Protocol PRN Reason: Hypoglycemia Protocol Stop: 06/12/24 09:27 Glucose (Glucose 10 Tab/Tube) 4 - 8 tab PO UD PRN; Protocol PRN Reason: Hypoglycemia Treatment Stop: 06/12/24 09:27 Hydrocortisone (Hydrocortisone 10 Mg Tab) 15 mg PO DAILY JOSE Stop: 06/13/24 08:59 Last Admin: 05/14/24 08:54 Dose: 15 mg Insulin Aspart (Insulin Aspart Per Unit Charge) 0 units SC ACHS JOSE Stop: 06/12/24 11:29 Last Admin: 05/14/24 13:09 Dose: 1 units Levothyroxine Sodium (Levothyroxine Sodium 50 Mcg Tablet) 50 mcg PO DAILYBB JOSE Stop: 06/13/24 06:29 Last Admin: 05/14/24 05:43 Dose: 50 mcg Magnesium Chloride (Magnesium Chloride W/Calcium 64mg Delayed Rel Tab) 64 mg PO BID JOSE Stop: 06/12/24 11:24 Last Admin: 05/14/24 08:54 Dose: 64 mg Miscellaneous (Carbohydrates For Hypoglycemia ) 15 - 30 gm PO UD PRN PRN Reason: Hypoglycemia Protocol Stop: 06/12/24 09:27 Pantoprazole Sodium (Pantoprazole 40 Mg Tab) 40 mg PO DAILY JOSE Stop: 06/12/24 11:24 Last Admin: 05/14/24 10:17 Dose: 40 mg Polyethylene Glycol (Polyethylene (Miralax) 17 Gm Pack) 17 gm PO DAILY PRN PRN Reason: Constipation Stop: 06/12/24 11:24 Vitamin D (Cholecalciferol 125 Mcg (5,000 Units) Tab) 125 mcg PO DAILY JOSE Stop: 06/12/24 11:24 Last Admin: 05/14/24 10:17 Dose: 125 mcg Vitamin D (Cholecalciferol 25 Mcg (1000 Units) Tab) 25 mcg PO DAILY JOSE Stop: 06/12/24 11:24 Last Admin: 05/14/24 10:17 Dose: 25 mcg (3) Multiple myeloma Multiple myeloma remission status: unspecified Qualified Code(s): C90.00 - Multiple myeloma not having achieved remission
[2024-05-14] MEDS: ACETAMINOPHEN 500 MG TAB PO PRN (16:54)
[2024-05-14] MEDS: traZODone HCL 50 MG TAB PO ONE (21:01)
[2024-05-15 06:34] LABS: Basophils # (auto) 0.01 K/uL (0.00-0.20); Basophils % (auto) 0.2 %; Eosinophils # (auto) 0.05 K/uL (0.00-0.50); Hematocrit (blood only) 32.4 % (42.0-52.0); Hemoglobin 11.1 g/dl (14.0-18.0); Immature Granulocytes # (auto) 0.01 K/uL (0.01-0.20); Immature Granulocytes % (auto) 0.2 %; Lymphocytes # (auto) 0.11 K/uL (1.20-3.40); Lymphocytes % (auto) 2.2 %; Mean Corpuscular Hgb Conc 34.3 g/dL (32.0-36.0); Mean Corpuscular Volume 105.2 fL (80.0-100.0); Mean Platelet Volume 12.1 fL (9.4-12.4); Monocytes # (auto) 0.39 K/uL (0.11-0.59); Monocytes % (auto) 7.8 %; Neutrophils # (auto) 4.42 K/uL (1.40-6.50); Neutrophils % (auto) 88.6 %; Nucleated RBC # (auto) 0.02 K/uL (0.00-0.12); Nucleated RBC % (auto) 0.4 %; Platelet Count 57 K/uL (130-400); RDW Coefficient of Variation 15.9 % (11.5-14.5); RDW Standard Deviation 61.7 fL (36.4-46.3); Red Blood Count 3.08 M/uL (4.70-6.10); White Blood Count 4.99 K/ul (4.8-10.8)
[2024-05-15 06:55] LABS: BUN Creatinine Ratio 41.3 (10-20); Calcium 9.6 mg/dl (8.6-10.3); Creatinine Clr Calc Pharmacy 46.7 ml/min; Est GFR (African American) 60.3 ml/min; Magnesium 2.2 mg/dl (1.7-2.4); Phosphorus 4.8 mg/dl (2.5-4.9)
[2024-05-15 07:45] VITALS: RESP 18; O2SAT 97
[2024-05-15 11:22] VITALS: TEMP 97.7
--- NOTE | 2024-05-15 12:41 | Hospitalist Progress Note ---
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 Has acute on chronic diastolic CHF-elevated BNP and chest x-ray suggestive of CHF Received 20 of Lasix intravenously in the emergency room and continue 20 mg IV twice daily Will maintain intake output Has been having enough diuresis and feeling better clinically Electrolytes remain unremarkable Will continue current dose of Lasix today and likely discharge tomorrow Will get PT and OT evaluation -Has been ambulating in the hallway without difficulties and does not want to have formal PT and OT evaluation Will be discharged home this afternoon Denies any symptoms at rest or with ambulation Thrombocytopenia Platelet count was low at 54 on admission It has gone up to 57 as of today Likely secondary to multiple myeloma He will have sooner appointment with the customer experience analyst as an outpatient within 1 week Blood pressure has been noted to be low Advised to drink more fluid Received 1 dose of beta-teto this morning Will hold any more beta-teto Blood pressure remains stable (2) Elevated troponin I level: Plan: Troponin is mildly elevated likely secondary to CHF and stress-induced Will do serial troponins to rule out the possibilities of ACS Serial troponins remained unremarkable minimally elevated due to demand ischemia but no ACS (3) Multiple myeloma: Plan: History of multiple myeloma on suppressive antivirals Has been following up regularly with his customer experience analyst/oncologist Platelet count has been low at upper 50s Will monitor (4) Pleural effusion, bilateral: Plan: Chest x-ray showed small bilateral effusion not enough to be drained clinically Is expected to improve with intravenous Lasix (5) Paroxysmal atrial fibrillation: Plan: Rate is controlled and will continue the current medications Has been on Eliquis and will continue Eliquis has been continued (6) 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: Plan: As above (7) CKD (chronic kidney disease) stage 3, GFR 30-59 ml/min: Plan: Will monitor PRP (8) Diabetes type 2, uncontrolled: Plan: Will check hemoglobin A1c Hold metformin Will put him on sliding scale DVT prophylaxis Has been on Eliquis CODE STATUS Full Admission and Anticipated Discharge Date Admission Date: May 13, 2024 Subjective 05/14/2024 The patient was seen and examined in medical telemetry unit He has been feeling a lot better and wanted to go home His blood pressure remains low and also platelet was noted to be low He was advised to stay in the hospital tonight likely discharge tomorrow Will get PT and OT evaluation prior to discharge 05/15/2024 The patient was seen and examined in medical telemetry unit He has been feeling much better and denies any shortness of breath He has been ambulating in the hallway without difficulties Wants to be discharged Review of Systems Review of Systems: All systems reviewed and are unremarkable except as noted below Physical Exam Physical Exam: lying in bed without any acute distress Constitutional: + ill appearing and average body habitus Eyes: PERRL, conjunctivae normal, anicteric sclerae ENMT: external ear and nose normal, oropharynx normal Neck: trachea midline, no thyromegaly Respiratory: + respiratory distress Auscultation: + diminished lung sounds and + crackles (Minimal bibasilar crackles) Cardiovascular: Rate/Rhythm: regular rate and regular rhythm; not tachycardic Heart Sounds: normal S1 and normal S2; no murmur Extremities: no edema Gastrointestinal (Abdomen): Inspection/Auscultation: + abdomen distended (Mildly distended) and normal bowel sounds Percussion/Palpation: abdomen soft; abdomen nontender Neurologic: normal touch/pain/proprioception and moves all extremities; no focal motor deficits Psychiatric: A+Ox3, euthymic affect Lymphatic: no cervical or axillary lymphadenopathy Results & Data Results & Data Vital Signs (Past 12 Hours) Vital Signs Temp Pulse Pulse Resp BP BP Pulse Ox 05/15/24 10:57 36.5 C 84 18 108/76 97 05/15/24 08:30 05/15/24 07:44 36.6 C 79 18 112/76 97 05/15/24 07:00 77 05/15/24 04:01 36.4 C L 76 16 103/71 98 O2 Del Method 05/15/24 10:57 Room Air 05/15/24 08:30 Room Air 05/15/24 07:44 Room Air 05/15/24 07:00 05/15/24 04:01 Room Air Laboratory Results Short CBC 05/15/24 Range/Units 06:07 WBC 4.99 (4.8-10.8) K/ul Hgb 11.1 L (14.0-18.0) g/dl Hct 32.4 L (42.0-52.0) % Plt Count 57 L (130-400) K/uL BMP 05/15/24 06:07 Sodium 137 Potassium 4.0 Chloride 98 Carbon Dioxide 32 BUN 62 H Creatinine 1.50 H Glucose 142 H Calcium 9.6 Medications Administered Current Inpatient Medications Acetaminophen (Acetaminophen 500 Mg Tab) 1,000 mg PO Q8H PRN PRN Reason: Pain or Fever Stop: 06/13/24 16:45 Last Admin: 05/14/24 16:54 Dose: 1,000 mg Acyclovir (Acyclovir 400 Mg Tab) 400 mg PO DAILY JOSE Stop: 06/12/24 11:24 Last Admin: 05/15/24 08:29 Dose: 400 mg Albuterol (Albuterol Hfa 8 Gm Inhaler) 2 puffs INH Q6H PRN PRN Reason: Shortness Of Breath/COUGH Stop: 06/12/24 11:24 Allopurinol (Allopurinol 100 Mg Tab) 100 mg PO DAILY JOSE Stop: 06/12/24 11:24 Last Admin: 05/15/24 08:35 Dose: Not Given Apixaban (Apixaban 5 Mg Tablet) 5 mg PO BID JOSE Stop: 06/13/24 08:59 Last Admin: 05/15/24 08:26 Dose: 5 mg Dapsone (Dapsone 25 Mg Tab) 25 mg PO DAILY JOSE Stop: 06/12/24 11:24 Last Admin: 05/15/24 08:34 Dose: Not Given Dextrose (Dextrose 50% 50 Ml Syringe) 25 - 50 ml IV UD PRN; Protocol PRN Reason: Hypoglycemia Protocol Stop: 06/12/24 09:27 Duloxetine HCl (Duloxetine Hcl 20 Mg Cap) 40 mg PO DAILY JOSE Stop: 06/12/24 11:24 Last Admin: 05/15/24 08:28 Dose: 40 mg Finasteride (Finasteride 5 Mg Tab) 5 mg PO DAILY JOSE Stop: 06/12/24 11:24 Last Admin: 05/15/24 08:27 Dose: 5 mg Fludrocortisone Acetate (Fludrocortisone Acetate 0.1 Mg Tab) 0.1 mg PO DAILY JOSE Stop: 06/13/24 08:59 Last Admin: 05/15/24 08:27 Dose: 0.1 mg Folic Acid (Folic Acid 400 Mcg Tab) 400 mcg PO DAILY JOSE Stop: 06/12/24 11:24 Last Admin: 05/15/24 08:27 Dose: 400 mcg Furosemide (Furosemide Inj 20 Mg/2 Ml Vial) 20 mg IV [id number] OJSE Stop: 06/12/24 16:59 Last Admin: 05/15/24 08:30 Dose: 20 mg Glucagon (Glucagon For Inj 1 Mg Vial) 1 mg SQ UD PRN; Protocol PRN Reason: Hypoglycemia Protocol Stop: 06/12/24 09:27 Glucose (Glucose 40% Gel 15 Gm Tube) 15 - 30 gm PO UD PRN; Protocol PRN Reason: Hypoglycemia Protocol Stop: 06/12/24 09:27 Glucose (Glucose 10 Tab/Tube) 4 - 8 tab PO UD PRN; Protocol PRN Reason: Hypoglycemia Treatment Stop: 06/12/24 09:27 Hydrocortisone (Hydrocortisone 10 Mg Tab) 15 mg PO DAILY JOSE Stop: 06/13/24 08:59 Last Admin: 05/15/24 08:27 Dose: 15 mg Insulin Aspart (Insulin Aspart Per Unit Charge) 0 units SC ACHS JOSE Stop: 06/12/24 11:29 Last Admin: 05/15/24 09:15 Dose: 4 units Levothyroxine Sodium (Levothyroxine Sodium 50 Mcg Tablet) 50 mcg PO DAILYBB JOSE Stop: 06/13/24 06:29 Last Admin: 05/15/24 06:19 Dose: 50 mcg Magnesium Chloride (Magnesium Chloride W/Calcium 64mg Delayed Rel Tab) 64 mg PO BID JOSE Stop: 06/12/24 11:24 Last Admin: 05/15/24 08:26 Dose: 64 mg Miscellaneous (Carbohydrates For Hypoglycemia ) 15 - 30 gm PO UD PRN PRN Reason: Hypoglycemia Protocol Stop: 06/12/24 09:27 Pantoprazole Sodium (Pantoprazole 40 Mg Tab) 40 mg PO DAILY JOSE Stop: 06/12/24 11:24 Last Admin: 05/15/24 08:29 Dose: 40 mg Polyethylene Glycol (Polyethylene (Miralax) 17 Gm Pack) 17 gm PO DAILY PRN PRN Reason: Constipation Stop: 06/12/24 11:24 Vitamin D (Cholecalciferol 125 Mcg (5,000 Units) Tab) 125 mcg PO DAILY JOSE Stop: 06/12/24 11:24 Last Admin: 05/15/24 08:29 Dose: 125 mcg Vitamin D (Cholecalciferol 25 Mcg (1000 Units) Tab) 25 mcg PO DAILY JOSE Stop: 06/12/24 11:24 Last Admin: 05/15/24 08:28 Dose: 25 mcg (3) Multiple myeloma Multiple myeloma remission status: unspecified Qualified Code(s): C90.00 - Multiple myeloma not having achieved remission
[2024-05-15] MEDS: METOPROLOL SUCC 25MG EXT REL TAB PO SCH (14:07)
[2024-05-15 14:08] VITALS: PULSE 85
[2024-05-15 15:10] VITALS: BP 107/64
--- NOTE | 2024-05-15 18:49 | Discharge Summary ---
Date of Service May 15, 2024 Admission HPI Per Admitting Provider Is a 54-year-old male with significant past medical history including multiple myeloma without remission, cardiac amyloidosis, PAF, chronic heart failure with preserved EF, hypogammaglobulinemia, type 2 diabetes, history of DEBBY, hyperlipidemia, BPH and clinically solitary kidney apparently has had chemotherapy in January of this year for his multiple myeloma and since then he has not been doing well. He was seen by his oncologist/learning and development specialist a few weeks back and also was seen by PCP last week or so today denies any significant symptoms as of today. He has been complaining of more shortness of breath with exertion and also has had orthopnea early this morning and came to the emergency room for further evaluation. He mentioned to have gained a few pounds for the last few days but does not have any swelling of the legs. He did not have any change in his medications except recently has been given more physical for his low appetite. Denies any fever or chills and does not have any abdominal distention or pain or nausea and vomiting. Noted to have CHF x-ray without any significant pleural effusion with increasing BNP and mildly elevated troponin. He was admitted to medical telemetry unit for continued care Admission Exam Per Admitting Provider Physical Exam: Sitting at the edge of the bed with some respiratory distress but no pain Constitutional: + ill appearing and average body habitus Eyes: PERRL, conjunctivae normal, anicteric sclerae ENMT: external ear and nose normal, oropharynx normal Neck: trachea midline, no thyromegaly Respiratory: + respiratory distress Auscultation: + diminished lung sounds and + crackles (Minimal bibasilar crackles) Cardiovascular: Rate/Rhythm: regular rate and regular rhythm; not tachycardic Heart Sounds: normal S1 and normal S2; no murmur Extremities: no edema Gastrointestinal (Abdomen): Inspection/Auscultation: + abdomen distended (Mildly distended) and normal bowel sounds Percussion/Palpation: abdomen soft; abdomen nontender Musculoskeletal: No acute arthritis involving any of the joints please Neurologic: normal touch/pain/proprioception and moves all extremities; no focal motor deficits Psychiatric: A+Ox3, euthymic affect Lymphatic: no cervical or axillary lymphadenopathy Principal Diagnosis Acute on chronic systolic and diastolic heart failure, multiple myeloma in [place], thrombocytopenia Discharge Exam lying in bed without any acute distress Constitutional + ill appearing and average body habitus Eyes PERRL, conjunctivae normal, anicteric sclerae ENMT external ear and nose normal, oropharynx normal Neck trachea midline, no thyromegaly Respiratory + respiratory distress Auscultation: + diminished lung sounds and + crackles (Minimal bibasilar c rackles) Cardiovascular Rate/Rhythm: regular rate and regular rhythm; not tachycardic Heart Sounds: normal S1 and normal S2; no murmur Extremities: no edema Gastrointestinal (Abdomen) Inspection/Auscultation: + abdomen distended (Mildly distended) and normal bowel sounds Percussion/Palpation: abdomen soft; abdomen nontender Neurologic normal touch/pain/proprioception and moves all extremities; no focal motor deficits Psychiatric A+Ox3, euthymic affect Lymphatic no cervical or axillary lymphadenopathy Discharge Data Allergies Allergy/AdvReac Type Severity Reaction Status Date / Time [id number] Reductase AdvReac Intermediate MUSCLE Verified 12/06/23 19:37 Inhibitor PAIN WITH ATORVASTATIN & ZETIA NSAIDS (Non-Steroidal AdvReac Unknown Advised by Verified 12/06/23 19:37 Anti-Inflamma nephrology to avoid d/t CKD Consultations 05/13/24 08:34 ED Decision to Admit Stat Hospital Course (1) Acute on chronic combined systolic and diastolic CHF, NYHA class 2: 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 Has acute on chronic diastolic CHF-elevated BNP and chest x-ray suggestive of CHF Received 20 of Lasix intravenously in the emergency room and continue 20 mg IV twice daily Will maintain intake output Has been having enough diuresis and feeling better clinically Electrolytes remain unremarkable Will continue current dose of Lasix today and likely discharge tomorrow Will get PT and OT evaluation -Has been ambulating in the hallway without difficulties and does not want to have formal PT and OT evaluation Will be discharged home this afternoon Denies any symptoms at rest or with ambulation Thrombocytopenia Platelet count was low at 54 on admission It has gone up to 57 as of today Likely secondary to multiple myeloma He will have sooner appointment with the learning and development specialist as an outpatient within 1 week Blood pressure has been noted to be low Advised to drink more fluid Received 1 dose of beta-teto this morning Will hold any more beta-teto Blood pressure remains stable (2) Elevated troponin I level: Troponin is mildly elevated likely secondary to CHF and stress-induced Will do serial troponins to rule out the possibilities of ACS Serial troponins remained unremarkable minimally elevated due to demand ischemia but no ACS (3) Multiple myeloma: History of multiple myeloma on suppressive antivirals Has been following up regularly with his learning and development specialist/oncologist Platelet count has been low at upper 50s Will monitor (4) Pleural effusion, bilateral: Chest x-ray showed small bilateral effusion not enough to be drained clinically Is expected to improve with intravenous Lasix (5) Paroxysmal atrial fibrillation: Rate is controlled and will continue the current medications Has been on Eliquis and will continue Eliquis has been continued (6) 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: As above (7) CKD (chronic kidney disease) stage 3, GFR 30-59 ml/min: Will monitor PRP (8) Diabetes type 2, uncontrolled: Will check hemoglobin A1c Hold metformin Will put him on sliding scale DVT prophylaxis Has been on Eliquis CODE STATUS Full Total Time Total Time Spent Total Time Spent (In Minutes): 35 minutes Discharge Plan Discharge Items Patient Disposition: Home - Home Health Services Reason For Visit: CHF Discharge Diagnosis: Acute on chronic systolic and diastolic heart failure, multiple myeloma in remission, thrombocytopenia Activity: Resume your previous activity Non-emergency contact: Primary Care Provider Call non-emergency contact if: you have any medication questions and your symptoms worsen Follow-up/Referrals: Jaime Garcia MD [Primary Care Provider] - (Date & Time 05/22/2024 9:40 AM Provider Jaime Garcia MD Department Family Medicine [facility] ) Rosalio Amaral MD [Outside Practitioners] - (The Hematology/Oncology office has been made aware of your discharge and will contact you to reschedule your missed appointment.) Diet: Heart Healthy and Low Sodium (2gm) Addtl Attending Provider Instructions: Please take precautions to avoid falls No change in your current medications Do not use any NSAIDs for pain, if needed use Tylenol instead Please keep appointments with the healthcare providers Pending Studies at Discharge: No Stand-Alone Forms: My clypd, Smoking Cessation Medications and DC Order Prescriptions: New metoprolol succinate 25 mg Tablet Extended Release 24 Hr 12.5 mg PO QAM Qty: 15 0RF Continued ondansetron HCl 8 mg tablet 8 mg PO TID PRN (Reason: Nausea And Vomiting) folic acid 400 mcg tablet 400 mcg PO DAILY pantoprazole 20 mg tablet,delayed release (DR/EC) 20 mg PO DAILY metformin 500 mg tablet extended release 24 hr 1,000 mg PO DAILY oxycodone 5 mg tablet 5 mg PO Q4H PRN (Reason: Pain) duloxetine 20 mg capsule,delayed release(DR/EC) 40 mg PO DAILY cholecalciferol (vitamin D3) [Vitamin D3] 50 mcg (2,000 unit) capsule 6,000 unit PO DAILY magnesium chloride [Mag 64] 64 mg tablet,delayed release (DR/EC) 64 mg PO BID icosapent ethyl 1 gram capsule 2 g PO BIDM Repatha SureClick 140 mg/mL pen injector 140 mg SUBCUT .[id number] Rx Instructions: PER PT "HAVEN'T RECEIVED FROM PHARMACY FOR SOME TIME NOW". LAST FILLED 09/14/23. Vemlidy 25 mg tablet 25 mg PO DAILY acyclovir 400 mg Tablet 400 mg PO DAILY levothyroxine 50 mcg tablet 50 mcg PO DAILYBB finasteride 5 mg tablet 5 mg PO DAILY polyethylene glycol 3350 [Miralax] 17 gram Powder In Packet 17 g PO DAILY PRN (Reason: Constipation) torsemide 10 mg tablet 10 mg PO QAM PRN (Reason: EDEMA/FLUID RETENTION) prochlorperazine maleate [Compazine] 10 mg Tablet 10 mg PO Q6H PRN (Reason: Nausea) allopurinol 100 mg Tablet 100 mg PO DAILY epinephrine [EpiPen] 0.3 mg/0.3 mL Auto-Injector 0.3 mg IM DIRECTED PRN (Reason: SEVERE ALLERGIC REACTION) albuterol sulfate 90 mcg/actuation Hfa Aerosol Inhaler 2 puff INHALATION Q6H PRN (Reason: Shortness Of Breath/COUGH) hydrocortisone 5 mg tablet 15 mg PO DAILY nystatin 100,000 unit/mL suspension 100,000 unit PO TID mirtazapine 15 mg tablet 15 mg PO PM fludrocortisone 0.1 mg tablet 0.1 mg PO DAILY Eliquis 5 mg tablet 5 mg PO BID Discharge Orders: Discharge Order (Routine); Ordered 05/15/24 Ordered By: Nivia Bennett/Other Patient Handouts: High Blood Sugar (Hyperglycemia), Managing Type 2 Diabetes Admission Data Admit Date/Time: 05/13/24 08:57 Attending Provider: Nivia Pierce Admit Provider: Nivia Pierce Primary Care Provider: Jaime Garcia Other Providers: Nivia Pierce; Sylvester Jimenez [facility] Other Interventions: Discharge Summary Assessment (RN) Last Done: 05/15/24 13:01
== END 2024-05-15 15:22 | disposition home health service (06) | DRG 291 ==
LOC: ED 05:47 → EDINP 08:57 → 2W 11:25